=== PATIENT | female | born 1955 | race Caucasian/White ===

== ENCOUNTER 2017-11-25 10:39 | Outpatient (RCR) | payer BC, SELFPAY ==
[2017-01-04 15:17] VITALS: BMI 30.1
== END 2017-11-25 10:40 ==
LOC: DC 10:39
PROVIDERS: Family Provider Family Medicine; PCP Family Medicine; Visit Provider Family Medicine
DX: E11.9 Type 2 diabetes mellitus without complications (principal); Z71.3 Dietary counseling and surveillance
CPT/HCPCS: 97802

== ENCOUNTER 2018-06-06 14:36 | Emergency (ER) | payer BC, SELFPAY ==
[2017-01-04 15:17] VITALS: BMI 30.1
[2018-06-06 14:37] VITALS: BP 140/77; PULSE 76; RESP 14; TEMP 36.4; O2SAT 97; BMI 29.4
--- NOTE | 2018-06-06 15:37 | ED.DCSUM_ITS ---
- ER Visit Summary Date of Service: 06/06/18 Chief Complaint: Headache and lump in neck History of Present Illness: The patient is a 62 F presenting for evaluation secondary to headache and lump in her neck. Patient reports that this morning she woke up and she noted that she had pain to very light sensation over her right occiput. She also noted that she had a lump in her right neck. She denies any visual changes numbness weakness. She denies any prior similar symptoms in the past. She denies any skin rashes. Patient was concerned because she had a history of TIA and coronary artery disease. Patient does endorse that she has had some contacts recently that of had shingles. Review of systems otherwise negative. Physical Examination: Physical exam unremarkable except for HEENT exam. There is tenderness to very light palpation over the right occiput without evidence of underlying vesicular rash. There is a palpable minimally tender mobile and well-circumscribed posterior cervical lymph node noted. No evidence of overlying skin changes in that area. Remainder physical otherwise unremarkable. Test Results: None indicated Emergency Department Course and Treatment: Patient presented for evaluation secondary to a painful lymph node and pain over the right side of her occipital scalp. While the patient does not clearly have a rash at this time, given the fact that there is a lymph node involved in the fact that the patient has pain with extremely light touch of suspicious for the possibility of the start of a shingles outbreak. Patient will be started on a course of Valtrex she is instructed to follow-up with her primary care doctor Disposition: Discharge Impression: 1. Occipital neuralgia This note was generated with [employer] dictation software. It may contain incorrect words, spelling, and punctuation that were not noted in review of the chart prior to signing ED Disposition - Plan for ED Patient: Disposition: Home or Assisted Living Chief Complaint: Other, Pain/Inj Diagnosis: Occipital neuralgia of right side Instructions: ED Shingles Prescriptions: Valacyclovir HCl [Valtrex] 1,000 mg PO TID #21 tab Referrals: Clifton Jennings MD [Primary Care Provider] - 1 Week
[2018-06-06 15:46] VITALS: BP 138/77; PULSE 81; RESP 18; O2SAT 97
== END 2018-06-06 15:47 | disposition home or self-care (01) ==
PROVIDERS: Emergency Provider Emergency Medicine; Family Provider Family Medicine; PCP Family Medicine
DX: M54.81 Occipital neuralgia (principal); I25.10 Atherosclerotic heart disease of native coronary artery without angina pectoris; I10 Essential (primary) hypertension; E11.9 Type 2 diabetes mellitus without complications; Z79.84 Long term (current) use of oral hypoglycemic drugs; Z79.82 Long term (current) use of aspirin; Z79.899 Other long term (current) drug therapy; Z86.73 Personal history of transient ischemic attack (TIA), and cerebral infarction without residual deficits
CPT/HCPCS: 99282

== ENCOUNTER → 2018-09-13 06:32 | Outpatient (CLI) | payer BC, SELFPAY ==
[2017-01-04 15:17] VITALS: BMI 30.1
--- NOTE | 2018-09-13 14:45 | STRESSREP_ITS ---
Stress Test Report Date: 09/13/2018 Procedure: Exercise tolerance test/imaging study Indications: Shortness of breath/dyspnea on exertion; CAD; status post PCI Consent: Per the patient Procedure: The patient exercised on a Teofilo protocol for 5 minutes completing Stage I and 2 minutes of Stage II achieving a peak heart rate of 144 bpm (90 % predicted maxi mal heart rate) with a peak blood pressure 148/72 mmHg and a peak MET capacity of 7 METs. The baseline ECG demonstrated normal sinus rhythm with nonspecific T wave abnormality. The peak exercise ECG demonstrated no obvious ECG changes, however, the recovery ECG demonstrated approximately 0.5-1.[address] segment depression in leads II, III, aVF, and V4 through V6 with gradual resolution towards baseline later in recovery. There were no cardiac dysrhythmias pretest, during exercise, or recovery. The functional capacity was considered average. There was chest discomfort and shortness of breath/dyspnea peak exercise with spontaneous resolution in recovery. The examination was discontinued secondary to chest discomfort and shortness of breath. Impression: 1. Technically adequate (percent predicted maximal heart rate greater than 85%) exercise tolerance test 2. Peak exercise ECG demonstrated no obvious ECG changes, however, the recovery ECG demonstrated approximately 0.1-1.[address] segment depression in leads II, III, aVF, and V4 through V6 with gradual resolution towards baseline later in recovery 3. There were no cardiac dysrhythmias pretest, during exercise, or recovery 4. Nuclear images pending Myocardial perfusion imaging study: Technique: The patient was injected with 10.2 mCi of technetium 99m Cardiolite and subsequently rest SPECT Cardiolite nuclear imaging was obtained in the horizontal long, vertical long, and short axis views. The patient exercised on a Teofilo protocol for 5 minutes completing StageI1 and 2 minutes of Stage II achieving a peak heart rate of 144 bpm (90 % predicted maximal heart rate) with a peak blood pressure 148/72 mmHg and a peak MET capacity of 7 METs. The patient was injected with 29.7 mCi of technetium 99m Cardiolite and subsequently stress SPECT Cardiolite nuclear imaging was obtained in the horizontal long, vertical long, and short axis views. A gated Cardiolite study at peak stress was obtained. Interpretation: Rest and stress SPECT Cardiolite nuclear imaging status post realignment, normalization, and attenuation correction, demonstrates the appearance of relative uniform tracer uptake and myocardial perfusion appearing within normal limits. There is end systolic thickening and brightening. The gated Cardiolite study demonstrates myocardial thickening and inward wall motion. The reported LVEF is 81 %. Impression: 1. Rest and stress SPECT Cardiolite nuclear imaging demonstrate relative uniform tracer uptake and myocardial perfusion appearing within normal limits. 2. The gated Cardiolite study reports an LVEF of 81 %. This note was generated with [employer] software. It may contain incorrect words, spelling, and punctuation that were not noted in checking the note before signing.
== END ==
PROVIDERS: Family Provider Family Medicine; PCP Family Medicine; Referring Provider Internal Medicine Cardiovascular Disease; Visit Provider Internal Medicine Cardiovascular Disease
DX: I25.10 Atherosclerotic heart disease of native coronary artery without angina pectoris (principal); I10 Essential (primary) hypertension; E78.2 Mixed hyperlipidemia; R06.00 Dyspnea, unspecified; R53.83 Other fatigue; Z95.9 Presence of cardiac and vascular implant and graft, unspecified
CPT/HCPCS: 78452; 93017; A9500; A4216

== ENCOUNTER → 2018-10-06 14:15 | Outpatient (CLI) | payer BC, SELFPAY ==
[2017-01-04 15:17] VITALS: BMI 30.1
[2018-10-06 13:12] VITALS: BMI 28.7
--- NOTE | 2018-10-06 14:25 | RAD_ITS ---
HISTORY: CHEST PAIN, PALPITATIONS, HAD STENTS TWO YEARS AGO EXAM: XR Chest 2 Views: COMPARISON: 01/01/2017 FINDINGS: Normal heart size. No vascular congestion, pleural effusion, or acute pulmonary infiltration. No pneumothorax. The bony thorax appears intact. RAD/Chest PA and Lateral IMPRESSION: No active cardiopulmonary disease. No significant interval change. at 2340 Reported and signed by: Matthew Krishnamurthy MD Electronically Signed: Matthew Krishnamurthy, at 23:38 EST Tel , Service support ,
[2018-10-06 16:02] LABS: Hematocrit 38.5 % (37-47); Hemoglobin 12.7 g/dl (12.0-15.0); Mean Corpuscular Hgb 31.4 pg (27.0-32.0); Mean Corpuscular Volume 95.1 fL (81-99); Mean Platelet Vol. 9.9 fl (6.2-12.0); Platelet Count 230 K/mm3 (150-450); RBC Distribution Width CV 14.1 % (11.6-14.6); RBC Distribution Width SD 46.9 fl (35.1-43.9); Red Blood Count 4.05 M/mm3 (4.2-5.4); White Blood Count 5.2 K/mm3 (4.4-11.0)
[2018-10-06 16:06] LABS: Scan Indicated on CBC? Y/N NO
[2018-10-06 16:23] LABS: Anion Gap 7 (5-15); BUN 16 mg/dL (7-18); BUN/Creat Ratio 17.2 RATIO (10-20); Calcium,Total 8.9 mg/dL (8.5-10.1); Chloride 103 mmol/L (98-107); Creatinine, Serum 0.93 mg/dL (0.55-1.02); EST Glomerular Filtration Rate 65 mL/min (>60); Est Glom Filt Rate - Afr Amer 79 mL/min (>60); Glucose 102 mg/dL (74-106); Potassium 3.8 mmol/L (3.5-5.1); Sodium Level 141 mmol/L (136-145)
[2018-10-06 16:27] LABS: International Normalized Ratio 0.9; Prothrombin Time (Protime)PT. 12.6 SECONDS (11.7-14.9)
--- OUTSIDE RECORDS SUMMARY | 2018-12-01 19:32 | XMS RPT_ITS ---
:1955 Author Organization OHIP Support Name Relationship Address Phone KISHA BARBA Unavailable [address] + [place] [address] [place] Unavailable [address] + [place] [address] KISHA BARBA Unavailable [address] + [place] [address] [place] Unavailable [address] [place] [address] ST. + [place] [address] KISHA BARBA Unavailable [address] + [place] [address] [place] Unavailable [address] [place] [address] ST. + [place] [address] KISHA BARBA Unavailable [address] + [place] [address] [place] Unavailable [address] + [place] [address] KISHA BARBA Unavailable [address] + [place] [address] [place] Unavailable [address] + [place] [address] KISHA BARBA Unavailable [address] + [place] [address] [place] Unavailable [address] + [place] [address] KISHA BARBA Unavailable [address] + [place] [address] [place] Unavailable [address] + [place] [address] KISHA BARBA Unavailable [address] + [place] [address] [place] Unavailable [address] [place] [address]. + [place] [address] KISHA BARBA Unavailable . + ., [place] . [place] Unavailable [address] [place] [address]. + [place] [address] KISHA BARBA Unavailable . + ., [place] . [place] Unavailable [address] [place] [address]. + [place] [address] KISHA BARBA Unavailable . + ., [place] . [place] Unavailable [address] [place] [address]. + [place] [address] Care Team Providers Name Role Phone CLIFTON HUNG Attending Unavailable CLIFTON HUNG Referring Unavailable GUADALUPE ABEBE (ELIZABETH) Attending Unavailable ABHILASH, CLIFTON A Referring Unavailable ABHILASHCLIFTON A Attending Unavailable ABHILASH, CLIFTON A Referring Unavailable GABY NICHOLSON (ELIZABETH) Attending Unavailable SEEMA ALICIA (PA) Attending Unavailable ABHILASH, CLIFTON A Referring Unavailable CORINE DARLING (FEL) Attending Unavailable ABHILASH, CLIFTON A Referring Unavailable AUGUSTINE WILEY Admitting Unavailable AUGUSTINE WILEY Attending Unavailable SEEMA ALICIA (PA) Referring Unavailable SEEMA ALICIA (PA) Attending Unavailable CLIFTON HUNG A Referring Unavailable ABHILASHCLIFTON ALLEN A Referring Unavailable ABHILASHCLIFTON A Attending Unavailable ABHILASHANTONIO ALLENREY A Referring Unavailable ABHILASH, CLIFTON A Referring Unavailable ABHILASH, CLIFTON A Referring Unavailable CHERISE SIFUENTES (PA) Attending Unavailable ABHILASH, CLIFTON A Referring Unavailable AbhilashClifton allen Attending Unavailable AbhilashClifotn allen Referring Unavailable AbhilashAntonio allenrey Primary Care Unavailable Clifton Hung Attending Unavailable Clifton Hung Referring Unavailable Abhilash, Clifton Primary Care Unavailable Abhilash, Clifton Primary Care Unavailable Noble Liao Attending Unavailable Ron Gomez Attending Unavailable Clifton Hung Referring Unavailable Ron Gomez Attending Unavailable Ron Gomez Referring Unavailable Clifton Hung Primary Care Unavailable Ron Gomez Attending Unavailable Ron Gomez Referring Unavailable Octaviano Humphries Attending Unavailable Clifton Hung Referring Unavailable Ron Gomez Attending Unavailable Moodispaceferino, Ron Referring Unavailable Abhilash, Clifton Primary Care Unavailable Moodismarilyn, Ron Attending Unavailable Abhilash, Clifton Primary Care Unavailable Snehaismarilyn, Ron Referring Unavailable Moodismarilyn, Ron Attending Unavailable Moodismarilyn, Ron Referring Unavailable Abhilash, Clifton Primary Care Unavailable Octaviano Humphries Attending Unavailable Abhilash, Clifton Referring Unavailable Abhilash, Clifton Primary Care Unavailable PROBLEMS PROBLEMS DATE TYPE CONDITION / CODE ATTENDING STATUS SOURCE 10/12/2018 Unknown E11.9 - Type 2 Ron Gomez Active [place] [facility] without complications Hospital / E11.9(ICD-10) Repository 10/12/2018 Unknown I25.10 - Ron Gomez Active [place] Atherosclerotic heart Community disease of [facility] coronary artery Repository without angina pectoris / I25.10(ICD-10) 10/06/2018 Unknown Z95.9 - Presence of Ron Gomez Active [facility] implant and graft, Hospital unspecified / Repository Z95.9(ICD-10) 10/06/2018 Unknown R07.9 - Chest pain, Ron Gomez Active [facility] unspecified / Community R07.9(ICD-10) Hospital Repository 10/06/2018 Unknown Z95.820 - Peripheral Octaviano Humphries Active [facility] vascular angioplasty Community status with implants Hospital and grafts / Repository Z95.820(ICD-10) 10/06/2018 Active Encounter for NA Active [place] screening mammogram [facility] Main for malignant [place] neoplasm of breast / Repository Z12.31(ICD-10) 09/13/2018 Unknown E78.2 - Mixed MoodisRon sanders Active [place] hyperlipidemia / Community E78.2(ICD-10) Hospital Repository 09/13/2018 Unknown I10 - Essential MoodispaRon de la vega Active [place] (primary) Community hypertension / Hospital I10(ICD-10) Repository 09/13/2018 Unknown R06.00 - Dyspnea, Ron Gomez Active [place] unspecified / Community R06.00(ICD-10) Hospital Repository 09/13/2018 Unknown R53.83 - Other Moodispaceferino, Ron Active [facility] fatigue / Community R53.83(ICD-10) Hospital Repository 09/08/2018 Active Myalgia, unspecified NA Active [place] site / M79.10(ICD-10) Clinic Main [place] Repository 09/01/2018 Active Atherosclerotic heart NA Active [place] disease of [place] [facility] Main coronary artery with [place] other forms of angina Repository pectoris / I25.118(ICD-10) 08/09/2018 Active Encounter for AISHA, Active [place] screening for AUGUSTINE T [facility] Main malignant neoplasm of [place] colon / Repository Z12.11(ICD-10) 08/09/2018 Active Gastro-esophageal AISHA, Active [place] reflux disease AUGUSTINE T [facility] Main without esophagitis / [place] K21.9(ICD-10) Repository 10/22/2016 Active Type 2 diabetes NA Active [place] mellitus without Clinic Main complications / [place] E11.9(ICD-10) Repository 01/16/2016 Active Essential (primary) NA Active [place] hypertension / Clinic Main I10(ICD-10) [place] Repository 01/16/2016 Active Mixed hyperlipidemia NA Active [place] / E78.2(ICD-10) Clinic Main [place] Repository 01/16/2016 Active Vitamin D deficiency, NA [facility] unspecified / Clinic Main E55.9(ICD-10) [place] Repository PROCEDURES PROCEDURES No Procedure Records FoundRESULTS RESULTS BASIC METABOLIC Collected: 10/14/2018 Status: F Source: [place] PROFILE (BMP) 9:53 AM [facility] REPOSITORY TYPE CODE TESTS RESULT OUT OF RANGE REFERENCE UNITS LAB L501.0100 74-106 mg/dL High GLU 149 Result Comment: Fasting Glucose result greater than or equal to 126 mg/dL suggests DIABETES MELLITUS per A.D.A. criteria. Please note revised GLUCOSE reference range effective 2017. LAB L501.1000 7-18 mg/dL Normal BUN 12 LAB L501.1100 0.55-1.02 mg/dL Normal CREAT,SERUM 0.79 Result Comment: The validity of the calculated GFR AND GFRAA in patients over 70 years has not been determined. Clinical correlation is essential. LAB L501.1110 >60 mL/min Normal EST GFR 78 Result Comment: Non- GFR Calc LAB L501.1115 >60 mL/min Normal EST GFR - AA 95 Result Comment: GFR Calc LAB L501.1300 10-20 RATIO Normal BUN/CRE 15.2 LAB L501.2200 8.5-10.1 mg/dL CA Normal 8.7 LAB L501.5300 136-145 mmol/L NA Normal 142 LAB L501.5600 3.5-5.1 mmol/L K Normal 3.7 LAB L501.5900 98-107 mmol/L CL Normal 102 LAB L501.6100 21.0-32.0 mmol/L High CO2 33.0 LAB L501.6200 5-15 Normal GAP 7 Performed By: #### L500.2500 #### [facility] [address] [place], [address] CARDIOLOGY VISIT Observed: 10/06/2018 Status: F Source: [place] REPORT 3:31 PM [facility] REPOSITORY [facility] [address] [place] [address] OFFICE VISIT Date of Service: 10/06/18 MR#: [id number] Acct: [id number] Name: DOM BARBA Rep #: [id number] : 1955 Provider: NIRAJ Humphries Age/Sex: 63/F Location: [facility] Status: Signed HPI HPI Details: DOM BARBA, is a 63 F who presents to the office today for a cardiovascular outpatient follow-up. She has a history of coronary artery disease status post PCI to mid and proximal LAD and balloon angioplasty to ostium of diagonal 2 in December 2016, hypertension, hyperlipidemia, palpitations, SEBAS, and dizziness. After last office visit patient complained of worsening shortness of breath and fatigue. She underwent a nuclear stress test. This test showed mixed results. Patient had chest pain and recovery ST depression on ECG. Her nuclear images were negative. Because of this, she will undergo a heart catheterization for further evaluation. She continues to get SOB with exertion that improves with rest. She does this notice this rest at times. She continues to have decreased energy, but has not worsened. She states minimal right sided chest pain that is worse with exertion. She denies any secondary symptoms at the same time as the chest pain. Pt denies arm, jaw, or neck discomfort. She states intermittent palpitations. She states lightheadedness and dizziness with quick position changes. Pt denies symptoms of near syncopal or syncopal episodes. She states occasional bilateral ankle edema. She states orthopnea at times. Pt denies claudication issues. Pt. denies orthopnea, PND, fever, chills, blood in urine, blood in stool, myalgia, or unexplainable fatigue. 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 [Ecotrin] 81 mg PO DAILY@0800 #30 tab 01/05/17 [Rx Confirmed 08/22/18] metoprolol tartrate 25 mg tablet 25 mg PO BID #180 tab 12/17/17 [Rx Confirmed 08/22/18] lisinopril 5 mg tablet 5 mg PO DAILY #30 tab 02/17/18 [Rx Confirmed 08/22/18] clopidogrel 75 mg tablet 75 mg PO DAILY #90 tab 05/30/18 [Rx Confirmed 08/22/18] cholecalciferol (vitamin D3) 2,000 unit capsule 4,000 unit PO DAILY cap 08/22/18 [History Confirmed 08/22/18] ketoconazole 2 % shampoo 1 applic TOPICAL ONCE PRN ml 08/22/18 [History Confirmed 08/22/18] metformin ER 500 mg 24 hr tablet,extended release 500 mg PO .COMPLEX tab 08/22/18 [History Confirmed 08/22/18] montelukast 10 mg tablet 10 mg PO QPM 08/22/18 [History Confirmed 08/22/18] nitroglycerin 0.4 mg sublingual tablet 0.4 mg SUBLINGUAL Q5M PRN #25 tab 08/22/18 [Rx Confirmed 08/22/18] Handicap Mayte #1 ea 10/06/18 [Rx Confirmed 10/06/18] hydrochlorothiazide 25 mg tablet 25 mg PO DAILY 10/06/18 [History Confirmed 10/06/18] rosuvastatin 10 mg tablet 10 mg PO .every other day tab 10/06/18 [History Confirmed 10/06/18] Ejection fraction %: 65 to 70 PFSH Medical History Atherosclerotic heart disease of [place] coronary artery without angina pectoris (Chronic) TIA (transient ischemic attack) (Chronic) DM2 (diabetes mellitus, type 2) (Chronic) HTN (hypertension) (Chronic) HLD (hyperlipidemia) (Chronic) [place]ieres disease (Acute) Surgical History S/P angioplasty with stent (Chronic 01/05/17) History of carpal tunnel release of both wrists (Resolved) History of section (Resolved) History of cholecystectomy (Resolved) History of hysterectomy (Resolved) History of parathyroidectomy (Resolved) Hx of foot surgery (Resolved) Status post excision of lipoma (Resolved) Status post lumbar spine operative procedure for decompression of spinal cord (Resolved) Status post trigger finger release (Resolved) Family History Mother Cancer pancreatic cancer Father , [place] age 20's (premature CAD), 3 vessel CABG, hyperlipidemia, CHf Myocardial infarction CAD (coronary artery disease) Brother Cancer lung cancer Social History Smoking Status: Former smoker how long ago did patient quit smokin second hand exposure: Yes alcohol intake: never substance use type: does not use caffeine: Yes Type: coffee Number of servings: 2 what type of physical activity do you participate in: none seatbelt use: always do you feel safe at home: Yes ROS Const Const: Positive for fatigue; negative for body ache, fever(s), chills or weakness ENT ENT: Positive for dizziness Cardio Chest Pain: No Palpitations: Yes Edema: Bilateral (occassionaly) Muscle aches with walking: None Resp Respiratory: Positive for SOB with activity; negative for SOB at rest, SOB orthopnea\SOB lying down or paroxysmal nocturnal dyspnea GI GI: Negative nausea, black,tarry stools, bright, red blood in stools or vomiting blood/hematemesis : Negative for hematuria or frequent nighttime urination/ nocturia Musc Musc: Negative for muscle aches/ myalgia Skin Skin: Negative non-healing lesions or rash Neuro Neuro: Positive for dizziness and lightheadedness; negative for weakness, near syncope, syncope or orthostatic symptoms Endo Endo: Positive for fatigue Allergy Allergy/Immunology: Negative for rash Cardiology Exam Const Appearance: cooperative, healthy appearing, comfortable, no acute distress, well developed and well groomed Nutritional Appearance: average body habitus Orientation: alert, awake and oriented x3 Head Head: normal to inspection, normocephalic and atraumatic Ears: hearing grossly normal bilaterally Nose: external nose normal Face and Sinus: face symmetric Mouth: oral mucosae normal and tongue normal Eyes Eyelids: eyelids normal Conjunctivae: conjunctivae normal Pupils: PERRL EOM: EOM intact bilaterally Neck Neck: no JVD, normal visual inspection and full ROM Carotids: normal carotid upstroke Chest Chest inspection: normal inspection of the chest, normal respiratory effort and symmetric chest movement Auscultation: Bilateral: Clear to Auscultation Cardio Rate: regular rate Rhythm: regular rhythm Heart sounds: S1 normal and S2 normal GI GI: normal to inspection, bowel sounds present and soft Neuro General: alert, awake, oriented x3 and moves all extremities Skin Skin: no rashes or lesions noted Extremities Pulses: Normal: Right Posterior Tibial Pulse, Left Posterior Tibial Pulse, Right Radial Pulse, Left Radial Pulse Lower Extremity Edema: None: Bilateral Psych Psychological: normal affect Supplemental Info Transthoracic echo cardia room: 06/30/2017 Interpretation Summary The estimated ejection fraction is 65%. Normal diastology for age. Bubble contrast study negative for right to left interatrial shunt. Trivial tricuspid valve insufficiency, Right ventricular systolic pressure estimated to be 30 mmHg. Compared to echo report dated 04/20/2017 no appreciable changes noted. Stress test: 09/13/2018 Procedure: Exercise tolerance test/imaging study Indications: Shortness of breath/dyspnea on exertion; CAD; status post PCI Consent: Per the patient Procedure: The patient exercised on a Teofilo protocol for 5 minutes completing Stage I and 2 minutes of Stage II achieving a peak heart rate of 144 bpm (90 % predicted maximal heart rate) with a peak blood pressure 148/72 mmHg and a peak MET capacity of 7 METs. The baseline ECG demonstrated normal sinus rhythm with nonspecific T wave abnormality. The peak exercise ECG demonstrated no obvious ECG changes, however, the recovery ECG demonstrated approximately 0.5-1.[address] segment depression in leads II, III, aVF, and V4 through V6 with gradual resolution towards baseline later in recovery. There were no cardiac dysrhythmias pretest, during exercise, or recovery. The functional capacity was considered average. There was chest discomfort and shortness of breath/dyspnea peak exercise with spontaneous resolution in recovery. The examination was discontinued secondary to chest discomfort and shortness of breath. Impression: 1. Technically adequate (percent predicted maximal heart rate greater than 85%) exercise tolerance test 2. Peak exercise ECG demonstrated no obvious ECG changes, however, the recovery ECG demonstrated approximately 0.1-1.[address] segment depression in leads II, III, aVF, and V4 through V6 with gradual resolution towards baseline later in recovery 3. There were no cardiac dysrhythmias pretest, during exercise, or recovery 4. Nuclear images pending Myocardial perfusion imaging study: Technique: The patient was injected with 10.2 mCi of technetium 99m Cardiolite and subsequently rest SPECT Cardiolite nuclear imaging was obtained in the horizontal long, vertical long, and short axis views. The patient exercised on a Teofilo protocol for 5 minutes completing StageI1 and 2 minutes of Stage II achieving a peak heart rate of 144 bpm (90 % predicted maximal heart rate) with a peak blood pressure 148/72 mmHg and a peak MET capacity of 7 METs. The patient was injected with 29.7 mCi of technetium 99m Cardiolite and subsequently stress SPECT Cardiolite nuclear imaging was obtained in the horizontal long, vertical long, and short axis views. A gated Cardiolite study at peak stress was obtained. Interpretation: Rest and stress SPECT Cardiolite nuclear imaging status post realignment, normalization, and attenuation correction, demonstrates the appearance of relative uniform tracer uptake and myocardial perfusion appearing within normal limits. There is end systolic thickening and brightening. The gated Cardiolite study demonstrates myocardial thickening and inward wall motion. The reported LVEF is 81 %. Impression: 1. Rest and stress SPECT Cardiolite nuclear imaging demonstrate relative uniform tracer uptake and myocardial perfusion appearing within normal limits. 2. The gated Cardiolite study reports an LVEF of 81 %. Cardiac catheterization: 01/04/2017: [facility] Final impression: 1. Relatively normal resting left ventricular end-diastolic pressure 2. Left ventricle: A. Normal left ventricular size, wall motion, and systolic function B. Estimated LVEF of 60% 3. Left main coronary artery: A. Large, long vessel B. Angiographically normal 4. Left anterior descending coronary artery: A. 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 Status post diagonal branch there is 85% appearing stenosis subsequently followed by 95% appearing stenosis C. Distal LAD fills late and slowly as well as receiving right to left collateral flow 5. Left circumflex coronary artery: A. Angiographically normal 6. Right coronary artery: A. Large, dominant vessel B. Angiographically normal C. Right to left collateral flow to the distal LAD lesion Cardiac catheterization/PCI: 01/06/2017 Proximal to mid LAD with a 3.0 x 24 Promus stent and 2.25 x 24 Promus stent PTCA/no stent of the ostium of diagonal branch number 2 Assessment AND Plan 1. Atherosclerosis of [place] coronary artery of [place] heart without angina pectoris I25.10 Plan She has a history of PCI to mid and proximal LAD and balloon angioplasty ostium of diagonal 2 in December 2016. Her most recent stress test showed ST depression of 0.5-1 mm in leads II, III, aVF, and V4 through V6 with gradual resolution towards baseline later in recovery. She also was noted to have chest pain and shortness of breath at peak exercise. Her nuclear images were negative for stress-induced myocardial ischemia. She will undergo a left heart catheterization for further evaluation of symptoms. Further recommendation will be made based on results of this test. Orders Orders: 2. S/P angioplasty with stent Z95.820 01/05/17 [facility], PCI and GUERITA to mid and proximal LAD. Plan This will be further assessed with her left heart catheterization. Orders Orders: 3. Essential hypertension I10 Plan Patient's blood pressure is well-controlled today in the office. We will continue to monitor this. We will not make any medication regimen changes. 4. Mixed hyperlipidemia E78.2 Plan She has been intolerant to statin medications in the past. She appears to be tolerating Crestor 10 mg p.o. every other day. At this time she will continue this medication and repeat blood work as advised by primary care physician. 5. Palpitations R00.2 Plan She does acknowledge short lasting intermittent palpitations. The exact etiology of this is unclear. Consideration will be made to utilize a 30-day event monitor/Holter monitor or laboratory work such as thyroid function at next office visit. In the meantime she will continue with current beta-felix. Plan Detail Other Medications New: Additional Comments Thank you for allowing us to participate in the patients plan of care, if you have any questions please do not hesitate to call. This note was generated using a voice recognition system and there may be incorrect words, spelling or punctuation that were not noted when reviewing the office note prior to saving. Coding Level of Care Code Off vis,est,level 3 Diagnoses Atherosclerosis of [place] coronary artery of [place] heart without angina pectoris I25.10 [place] vs. transplanted heart: [place] heart S/P angioplasty with stent Z95.820 Essential hypertension I10 Hypertension type: essential hypertension Mixed hyperlipidemia E78.2 Hyperlipidemia type: mixed hyperlipidemia Palpitations R00.2 Coding Level of Care Code Off vis,est,level 3 Diagnoses Atherosclerosis of [place] coronary artery of [place] heart without angina pectoris I25.10 [place] vs. transplanted heart: [place] heart S/P angioplasty with stent Z95.820 Essential hypertension I10 Hypertension type: essential hypertension Mixed hyperlipidemia E78.2 Hyperlipidemia type: mixed hyperlipidemia Palpitations R00.2 10/06/18 1531 <Electronically signed by Octaviano TOM> Date Octaviano TOM Cosigner Signature: Date (if applicable) CC: Clifton Hung MD CBC-COMPLETE BLOOD CNT Collected: 10/06/2018 Status: F Source: NITA NO DIFF 2:34 PM [facility] REPOSITORY TYPE CODE TESTS RESULT OUT OF RANGE REFERENCE UNITS LAB L100.1000 4.4-11.0 K/mm3 Normal WBC 5.2 LAB L100.1200 4.2-5.4 M/mm3 Low RBC 4.05 LAB L100.1300 12.0-15.0 g/dl Normal HGB 12.7 LAB L100.1400 37-47 % Normal HCT 38.5 LAB L100.1500 81-99 fL Normal MCV 95.1 LAB L100.1600 27.0-32.0 pg Normal MCH 31.4 LAB L100.1700 32-36 g/gl Normal MCHC 33.0 LAB L100.1810 11.6-14.6 % Normal RDW CV 14.1 LAB L100.1820 35.1-43.9 fl High RDW SD 46.9 LAB L100.1900 150-450 K/mm3 Normal PLT 230 LAB L100.2000 6.2-12.0 fl Normal MPV 9.9 Performed By: #### L100.0500 #### [facility] [address] [place], [place], [address] BASIC METABOLIC Collected: 10/06/2018 Status: F Source: NITA PROFILE (BMP) 2:34 PM [facility] REPOSITORY TYPE CODE TESTS RESULT OUT OF RANGE REFERENCE UNITS LAB L501.0100 74-106 mg/dL Normal GLU 102 Result Comment: Fasting Glucose result from 100 to 125 mg/dL suggests IMPAIRED HOMEOSTASIS per A.D.A. criteria. Please note revised GLUCOSE reference range effective 2017. LAB L501.1000 7-18 mg/dL Normal BUN 16 LAB L501.1100 0.55-1.02 mg/dL Normal CREAT,SERUM 0.93 Result Comment: The validity of the calculated GFR AND GFRAA in patients over 70 years has not been determined. Clinical correlation is essential. LAB L501.1110 >60 mL/min Normal EST GFR 65 Result Comment: Non- GFR Calc LAB L501.1115 >60 mL/min Normal EST GFR - AA 79 Result Comment: GFR Calc LAB L501.1300 10-20 RATIO Normal BUN/CRE 17.2 LAB L501.2200 8.5-10.1 mg/dL CA Normal 8.9 LAB L501.5300 136-145 mmol/L NA Normal 141 LAB L501.5600 3.5-5.1 mmol/L K Normal 3.8 LAB L501.5900 98-107 mmol/L CL Normal 103 LAB L501.6100 21.0-32.0 mmol/L Normal CO2 31.0 LAB L501.6200 5-15 Normal GAP 7 Performed By: #### L500.2500 #### [facility] [address] [place], [address] PROTHROMBIN TIME W/INR Collected: 10/06/2018 Status: F Source: NITA 2:34 PM [facility] REPOSITORY TYPE CODE TESTS RESULT OUT OF RANGE REFERENCE UNITS LAB L300.4150 11.7-14.9 SECONDS Normal PROTIME 12.6 LAB L300.4200 Normal INR 0.9 Performed By: #### L300.3900, L300.4310 #### [facility] [address] [place], [address] PARTIAL THROMBOPLAST Collected: 10/06/2018 Status: F Source: [place] TIME 2:34 PM [facility] REPOSITORY TYPE CODE TESTS RESULT OUT OF RANGE REFERENCE UNITS LAB L300.4310 24.1-36.2 Seconds Normal PTT 30.0 Performed By: #### L300.3900, L300.4310 #### [facility] [address] [place], [address] CHEST PA AND LATERAL Observed: 10/06/2018 Status: F Source: [place] 2:20 PM [facility] REPOSITORY [facility] Imaging Services [address] [place] [address] Chest PA and Lateral MR#: [id number] Acct: [id number] Name: DOM BARBA Rep #: [id number] : 1955 F 63 From: Matthew Krishnamurthy MD PCP: Clifton Hung MD Status: REG CLI Study: Chest PA and Lateral Date of Exam: 10/06/18 Exam# [id number] Ordering Dr: Ron Gomez MD HISTORY: CHEST PAIN, PALPITATIONS, HAD STENTS TWO YEARS AGO EXAM: XR Chest 2 Views: COMPARISON: 01/01/2017 FINDINGS: Normal heart size. No vascular congestion, pleural effusion, or acute pulmonary infiltration. No pneumothorax. The bony thorax appears intact. RAD/Chest PA and Lateral IMPRESSION: No active cardiopulmonary disease. No significant interval change. at 2340 Reported and signed by: Matthew Krishnamurthy MD Electronically Signed: Matthew Krishnamurthy, at 23:38 EST Tel , Service support , CC: Clifton Hung MD; Ron Gomez MD Supervisor Case Loading: Signed 12 LEAD EKG PERFORMED Observed: 10/06/2018 Status: F Source: [place] [facility] 1:15 PM [facility] REPOSITORY [facility] [address] [place] [address] 12 Lead EKG performed by [facility] 10/06/181314 MR#: [id number] Acct: [id number] Name: DOM BARBA Rep #: [id number] : 1955 63 From: Octaviano Humphries ORTHOPAEDIC TECHNOLOGIST-C Attending Dr: Octaviano Humphries ORTHOPAEDIC TECHNOLOGIST Status: DEP AMB Ordering Dr: Octaviano Humphries ORTHOPAEDIC TECHNOLOGIST-C Date: 10/06/18 Location: [facility] Sex: F C Admitted: BMS/12 Lead EKG performed by [facility] ECG Report Interpretation Sinus Rhythm Leftward axisNonspecific T-abnormality. ABNORMAL Electronically signed on 10/06/2018 at 15:01 by Ron Gomez Software Version [id number] 10/06/18 1504 Date Octaviano TRAYLORC CC: Clifton Hung MD Date Dictated: 10/06/181314 Date Transcribed: 10/06/181314 Supervisor Case Loading: KIA Signed CNCO Observed: 10/06/2018 Status: COMPLETED Source: [place] 12:55 PM [facility] REPOSITORY HNO ID: [id number] Author: Mammography Coordinator Service: (none) Author Type: Physician Type: Letter Filed: 10/10/2018 11:31 PM Note Text: October 06, 2018 PID: [id number] Dom Barba [address] [place] [id number] Dear Ms. Barba, We are pleased to inform you that the results of your recent breast imaging exam on 10/06/2018 are normal. Early detection of cancer is very important. We also understand recommendations regarding breast cancer screening are controversial. Please discuss with your primary care provider which strategy is best for you and whether a mammogram is right for you. Your imaging studies and report will be kept on file at [facility] as part of your permanent medical record and are available for your continuing care. Thank you for allowing us to help in meeting your health care needs. Sincerely, Dr. Hutchins Interpreting Radiologist [facility] (Normal over 40) PROGRESS Observed: 10/06/2018 Status: COMPLETED Source: [place] 8:45 AM [facility] REPOSITORY HNO ID: [id number] Author: Loren Sifuentes Service: (none) Author Type: Physician Landscape Foreman Type: Progress Notes Filed: 10/06/2018 9:13 AM Note Text: Chief Complaint Patient presents with: Follow Up: dizziness AND htn from 09/08/18 HPI Dom Barba is a 63 year old female who presents here today for Recheck.. Overall patient does feel a little better. Her blood pressures have been similar to today's reading. She stil is having some dizziness but has had improvement. Worse when she turns to the right. States that she saw ENT before and they were the ones that started the dyazide but with lower BPs it was switched to just the HCTZ. Last 4 Encounter BP Readings: Date: BP: 09/08/2018 106/60 08/02/2018 114/75 07/21/2018 126/76 07/21/2018 132/68 At last visit also started Crestor 5mg. No side effects from this. Will be seeing cardiology today to set up a cardiac cath. She had an abnormal stress test. Past medical history, appointments, medications, allergies reviewed. 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 Gomez - Garibay's cyst of knee, left 03/02/2018 - Colon polyp 2011 - Diabetes mellitus type 2, controlled, without complications (HCC) - Essential hypertension 01/16/2016 - Female pattern hair loss - History of depression when - History of hyperparathyroidism - Mixed hyperlipidemia 05/31/2009 statin intolerance - Obstructive sleep apnea on CPAP Sibilia - Psoriasis - Rosacea with ocular symptoms - S/P angioplasty with stent 01/09/2017 stents to mid and proximal left anterior descending Art, and angio of ostium of #2 diagonal - Scalp itch - Seasonal allergies Dr Pompa - TIA (transient ischemic attack) 06/2017 - Vitamin D deficiency 2012 Previous Surgical History PAST SURGICAL HISTORY Procedure Laterality Date - 2D ECHO (EXEP) 06/30/2017 EF=65%, trivial [place], TI and 1+ PI Unchanged from 04/2017 - BUNIONECTOMY, LAPIDUS-TYPE 2009 left great toe - DELIVERY ONLY - COLONOSCOP W/ OR W/O BRSH SPEC 08/09/2018 Colonoscopy - COLONOSCOPY 08/07/15 no polyps, recheck 3-5 yrs - COLONOSCOPY AND POLYPECTOMY 10/12, 10/13 Dr Barba; hyperplastic polyps - EGD W/O OR W/BRUSH/WASH 08/09/2018 EGD - HEART CATHETERIZATION 2004 heart cath-normal per patient - HEART CATHETERIZATION 01/04/2017 EF=60%, left anterior desending septal perferator 95-99% stenosis and diagonal branch 85% stenosis, - HEART SURGERY HX 12/2016 Cardiac stents x 2 - LOW BACK DISK SURGERY 2009 microdecompression L4 L5 - PAST SURGICAL HISTORY OF 2004 parathyroidectomy x1 - PAST SURGICAL HISTORY OF lipoma x2 - PAST SURGICAL HISTORY OF 10/13 left foot surgery (bone cyst in heel, removed) - PAST SURGICAL HISTORY OF 2014 bilateral carpel tunnel - PAST SURGICAL HISTORY OF Right 10/2016 trigger finger release x2 - REMOVAL GALLBLADDER 2004 Cholecystectomy - STENT PLACEMENT 01/06/2017 stents to mid and proximal left anterior descending Art, and angio of ostium of #2 diagonal - STRESS TEST 04/20/2017 WNL - TOTAL ABDOM HYSTERECTOMY 1995 LEDA for benign fibroid, ovaries intact Family History FAMILY HISTORY Problem Relation Age of Onset - other (Pancreatic cancer) Mother - Coronary Artery Disease Father 25 [place] @ 25. CABG - Diabetes Paternal Grandmother - Diabetes Maternal Grandfather - other (Lung cancer) Brother - other (suicide) Son may of been depression Patient Allergies ALLERGIES Allergen Reactions - Brilinta [Ticagrelo* Shortness of Breath - Keflex [Cephalexin] Other: See Comments facial flushing - Lipitor [Atorvastat* Other: See Comments myalgia - Lisinopril Cough - Lovastatin Other: See Comments myalgia - Beardsley [Hydrocodone-* Itching Current Medications Current Outpatient Prescriptions on File Prior to Visit: MAGNESIUM SULFATE ORAL Take 500 mg by mouth. dulaglutide (TRULICITY) 0.75 mg / 0.5 ml subcutaneous pen injector INJECT 0.75 MG SUBCUTANEOUSLY ONCE EACH WEEK hydroCHLOROthiazide (HYDRODIURIL, ESIDRIX) 25 mg tablet Take 1 tablet by mouth once daily. rosuvastatin (CRESTOR) 5 mg tablet Take 1 tablet by mouth once daily. montelukast (SINGULAIR) 10 mg tablet Take 10 mg by mouth daily at bedtime. doxycycline hyclate 50 mg tab Take by mouth. metFORMIN (GLUCOPHAGE) 500 mg tablet TAKE ONE TABLET BY MOUTH AFTER BREAKFAST AND TWO TABLETS AFTER DINNER ketoconazole (NIZORAL) 2 % shampoo Apply 1 application to affected area once daily as needed. metoprolol succinate ER (TOPROL XL) 25 mg 24 hr tablet Take 1 tablet by mouth twice daily. Per Dr. Gomez aspirin 81 mg chewable tablet Take 1 tablet by mouth once daily. clopidogrel (PLAVIX) 75 mg tablet Take 1 tablet by mouth once daily. lisinopril (ZESTRIL, PRINIVIL) 5 mg tablet Take 1 tablet by mouth once daily. nitroglycerin sublingual (NITROQUICK) 0.4 mg SL tablet Dissolve 1 tablet under the tongue every 5 minutes as needed for Chest Pain. cholecalciferol, vitamin D3, (VITAMIN D3) 4,000 unit cap Take 1 capsule by mouth once daily. MULTIVITAMIN ORAL Take by mouth. Sawyer-3 Fatty Acids-Vitamin E (FISH OIL) 1,000 mg cap Take 1 capsule by mouth once daily. LACTOBACILLUS ACIDOPHILUS (PROBIOTIC ORAL) Take 1 tablet by mouth once daily. CPAP No current facility-administered medications on file prior to visit. Social History Social History Marital status: Spouse name: Kisha Years of education: 14 Number of children: 3 Occupational History Occupation Employer [employer] Social History Main Topics Smoking status: Former Smoker Packs/day: 1.50 Years: 3.00 Types: Cigarettes Quit date: 11/08/1994 Smokeless tobacco: Never Used Comment: smoked 3 years in mid 90 Alcohol use: No Drug use: No Sexual activity: Yes Partners with: Male Social History Narrative 3 children. 06/2011. 1st child suicide at 17. Remarried. Review of Symptoms REVIEW OF SYSTEMS See hpi. EXAM: BP 120/78 (BP Site: Left Arm, BP Position: Sitting, BP Cuff Size: Regular Adult) Pulse 64 Temp (!) 35.8 ?C (96.5 ?F) (Tympanic) Resp 16 Wt 73.5 kg (162 lb) BMI 29.16 kg/m? General Appearance: Well appearing, alert, in no acute distress, well-hydrated, well nourished.. Neck: Supple, no adenopathy; thyroid symmetric, normal size, no bruits. Lungs: lungs clear to auscultation. No wheezing, rhonchi, rales. Heart: RRR without murmur, gallop, or rubs. No ectopy. Back: muscle spasm noted right side thoracic back. Full ROM. nvi Health Maintenance List STATIN MED ADHERENCE due on 10/08/2018 DIABETES MED ADHERENCE due on 10/08/2018 DILATED RETINAL EXAM due on 12/03/2018 URINE ALBUMIN:CREATININE RATIO due on 02/25/2019 HBA1C due on 03/02/2019 LDL CHOLESTEROL due on 09/01/2019 DIABETIC FOOT EXAM due on 09/08/2019 ANNUAL PCP TEAM CHRONIC DISEASE VISIT due on 09/08/2019 BP CONTROLLED (<130/80) due on 09/08/2019 MAMMOGRAM due on 10/06/2019 DTAP,TDAP,TD(2 - Td) due on 02/24/2024 COLORECTAL CANCER SCREENING,SEE MODIFIER due on 08/09/2028 ONE PNEUMOVAX PRIOR TO AGE 65 Completed INFLUENZA Completed HEPATITIS C SCREENING Completed Data reviewed ASSESSMENT/PLAN: 1. Essential hypertension - ICD9: 401.9, ICD10: I10 (primary diagnosis) - good control - Continue current medication(s) - Recommended regular aerobic exercise. - Recommend home blood pressure monitoring, to bring results in on next visit - Goal of BP <130/80 2. Meniere disease, right - ICD9: 386.00, ICD10: H81.01 Discussed setting patient back up with ENT but patient would like to wait until after cardiac testing is completed 3. Spasm of muscle, back - ICD9: 724.8, ICD10: M62.830 Baclofen prn. Discussed Physical Therapy, chiropractor, or massage therapy as well. Follow up if no improvement. Will set up patient for a 3-4 month routine follow up. Labs prior Return sooner as needed. KELLY STUART Observed: 10/06/2018 Status: COMPLETED Source: [place] 8:40 AM [facility] REPOSITORY Office Visit (FAMPWS) DOM BARBA ([id number]) 1955 F Date Time Provider Department 10/06/18 8:40 AM CHERISE SIFUENTES(KELLY) FAMPWS During your visit today, we recorded the following information about you: Temperature Pulse Respiration Blood pressure 96.5 degrees 64/minute 16/minute 120/78 Weight 73.5 kg CHERISE SIFUENTES PA-C 10/06/2018 9:13 AM Signed Chief Complaint Patient presents with: Follow Up: dizziness AND htn from 09/08/18 [facility] Dom Barba is a 63 year old female who presents here today for Recheck.. Overall patient does feel a little better. Her blood pressures have been similar to today's reading. She stil is having some dizziness but has had improvement. Worse when she turns to the right. States that she saw ENT before and they were the ones that started the dyazide but with lower BPs it was switched to just the HCTZ. Last 4 Encounter BP Readings: Date: BP: 09/08/2018 106/60 08/02/2018 114/75 07/21/2018 126/76 07/21/2018 132/68 At last visit also started Crestor 5mg. No side effects from this. Will be seeing cardiology today to set up a cardiac cath. She had an abnormal stress test. Past medical history, appointments, medications, allergies reviewed. 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 Gomez - Phoenix's cyst of knee, left 03/02/2018 - Colon polyp 2011 - Diabetes mellitus type 2, controlled, without complications (HCC) - Essential hypertension 01/16/2016 - Female pattern hair loss - History of depression when - History of hyperparathyroidism - Mixed hyperlipidemia 05/31/2009 statin intolerance - Obstructive sleep apnea on CPAP Sibilia - Psoriasis - Rosacea with ocular symptoms - S/P angioplasty with stent 01/09/2017 stents to mid and proximal left anterior descending Art, and angio of ostium of #2 diagonal - Scalp itch - Seasonal allergies Dr Pompa - TIA (transient ischemic attack) 06/2017 - Vitamin D deficiency 2012 Previous Surgical History PAST SURGICAL HISTORY Procedure Laterality Date - 2D ECHO (EXEP) 06/30/2017 EF=65%, trivial [place], TI and 1+ PI Unchanged from 04/2017 - BUNIONECTOMY, LAPIDUS-TYPE 2009 left great toe - DELIVERY ONLY - COLONOSCOP W/ OR W/O BRSH SPEC 08/09/2018 Colonoscopy - COLONOSCOPY 08/07/15 no polyps, recheck 3-5 yrs - COLONOSCOPY AND POLYPECTOMY 10/12, 10/13 Dr Barba; hyperplastic polyps - EGD W/O OR W/BRUSH/WASH 08/09/2018 EGD - HEART CATHETERIZATION 2004 heart cath-normal per patient - HEART CATHETERIZATION 01/04/2017 EF=60%, left anterior desending septal perferator 95-99% stenosis and diagonal branch 85% stenosis, - HEART SURGERY HX 12/2016 Cardiac stents x 2 - LOW BACK DISK SURGERY 2009 microdecompression L4 L5 - PAST SURGICAL HISTORY OF 2004 parathyroidectomy x1 - PAST SURGICAL HISTORY OF lipoma x2 - PAST SURGICAL HISTORY OF 10/13 left foot surgery (bone cyst in heel, removed) - PAST SURGICAL HISTORY OF 2014 bilateral carpel tunnel - PAST SURGICAL HISTORY OF Right 10/2016 trigger finger release x2 - REMOVAL GALLBLADDER 2004 Cholecystectomy - STENT PLACEMENT 01/06/2017 stents to mid and proximal left anterior descending Art, and angio of ostium of #2 diagonal - STRESS TEST 04/20/2017 WNL - TOTAL ABDOM HYSTERECTOMY 1995 LEDA for benign fibroid, ovaries intact Family History FAMILY HISTORY Problem Relation Age of Onset - other (Pancreatic cancer) Mother - Coronary Artery Disease Father 25 [place] @ 25. CABG - Diabetes Paternal Grandmother - Diabetes Maternal Grandfather - other (Lung cancer) Brother - other (suicide) Son may of been depression Patient Allergies ALLERGIES Allergen Reactions - Brilinta [Ticagrelo* Shortness of Breath - Keflex [Cephalexin] Other: See Comments facial flushing - Lipitor [Atorvastat* Other: See Comments myalgia - Lisinopril Cough - Lovastatin Other: See Comments myalgia - Beardsley [Hydrocodone-* Itching Current Medications Current Outpatient Prescriptions on File Prior to Visit: MAGNESIUM SULFATE ORAL Take 500 mg by mouth. dulaglutide (TRULICITY) 0.75 mg / 0.5 ml subcutaneous pen injector INJECT 0.75 MG SUBCUTANEOUSLY ONCE EACH WEEK hydroCHLOROthiazide (HYDRODIURIL, ESIDRIX) 25 mg tablet Take 1 tablet by mouth once daily. rosuvastatin (CRESTOR) 5 mg tablet Take 1 tablet by mouth once daily. montelukast (SINGULAIR) 10 mg tablet Take 10 mg by mouth daily at bedtime. doxycycline hyclate 50 mg tab Take by mouth. metFORMIN (GLUCOPHAGE) 500 mg tablet TAKE ONE TABLET BY MOUTH AFTER BREAKFAST AND TWO TABLETS AFTER DINNER ketoconazole (NIZORAL) 2 % shampoo Apply 1 application to affected area once daily as needed. metoprolol succinate ER (TOPROL XL) 25 mg 24 hr tablet Take 1 tablet by mouth twice daily. Per Dr. Gomez aspirin 81 mg chewable tablet Take 1 tablet by mouth once daily. clopidogrel (PLAVIX) 75 mg tablet Take 1 tablet by mouth once daily. lisinopril (ZESTRIL, PRINIVIL) 5 mg tablet Take 1 tablet by mouth once daily. nitroglycerin sublingual (NITROQUICK) 0.4 mg SL tablet Dissolve 1 tablet under the tongue every 5 minutes as needed for Chest Pain. cholecalciferol, vitamin D3, (VITAMIN D3) 4,000 unit cap Take 1 capsule by mouth once daily. MULTIVITAMIN ORAL Take by mouth. Sawyer-3 Fatty Acids-Vitamin E (FISH OIL) 1,000 mg cap Take 1 capsule by mouth once daily. LACTOBACILLUS ACIDOPHILUS (PROBIOTIC ORAL) Take 1 tablet by mouth once daily. CPAP No current facility-administered medications on file prior to visit. Social History Social History Marital status: Spouse name: Kisha Years of education: 14 Number of children: 3 Occupational History Occupation Employer Comment [employer] Social History Main Topics Smoking status: Former Smoker Packs/day: 1.50 Years: 3.00 Types: Cigarettes Quit date: 11/08/1994 Smokeless tobacco: Never Used Comment: smoked 3 years in mid 90s Alcohol use: No Drug use: No Sexual activity: Yes Partners with: Male Social History Narrative 3 children. 06/2011. 1st child suicide at 17. Remarried. Review of Symptoms REVIEW OF SYSTEMS See hpi. EXAM: BP 120/78 (BP Site: Left Arm, BP Position: Sitting, BP Cuff Size: Regular Adult) Pulse 64 Temp (!) 35.8 ?C (96.5 ?F) (Tympanic) Resp 16 Wt 73.5 kg (162 lb) BMI 29.16 kg/m? General Appearance: Well appearing, alert, in no acute distress, well-hydrated, well nourished.. Neck: Supple, no adenopathy; thyroid symmetric, normal size, no bruits. Lungs: lungs clear to auscultation. No wheezing, rhonchi, rales. Heart: RRR without murmur, gallop, or rubs. No ectopy. Back: muscle spasm noted right side thoracic back. Full ROM. nvi Health Maintenance List STATIN MED ADHERENCE due on 10/08/2018 DIABETES MED ADHERENCE due on 10/08/2018 DILATED RETINAL EXAM due on 12/03/2018 URINE ALBUMIN:CREATININE RATIO due on 02/25/2019 HBA1C due on 03/02/2019 LDL CHOLESTEROL due on 09/01/2019 DIABETIC FOOT EXAM due on 09/08/2019 ANNUAL PCP TEAM CHRONIC DISEASE VISIT due on 09/08/2019 BP CONTROLLED (<130/80) due on 09/08/2019 MAMMOGRAM due on 10/06/2019 DTAP,TDAP,TD(2 - Td) due on 02/24/2024 COLORECTAL CANCER SCREENING,SEE MODIFIER due on 08/09/2028 ONE PNEUMOVAX PRIOR TO AGE 67 Completed INFLUENZA Completed HEPATITIS C SCREENING Completed Data reviewed ASSESSMENT/PLAN: 1. Essential hypertension - ICD9: 401.9, ICD10: I10 (primary diagnosis) - good control - Continue current medication(s) - Recommended regular aerobic exercise. - Recommend home blood pressure monitoring, to bring results in on next visit - Goal of BP <130/80 2. Meniere disease, right - ICD9: 386.00, ICD10: H81.01 Discussed setting patient back up with ENT but patient would like to wait until after cardiac testing is completed 3. Spasm of muscle, back - ICD9: 724.8, ICD10: M62.830 Baclofen prn. Discussed Physical Therapy, chiropractor, or massage therapy as well. Follow up if no improvement. Will set up patient for a 3-4 month routine follow up. Labs prior Return sooner as needed. CHERISE SIFUENTES PA-C Referring Provider: CLIFTON HUNG [[id number]] Allergies As of Date: 10/06/2018 Noted Allergy Reaction BRILINTA (TICAGRELOR) 06/28/2017 12 - Shortness of Breath KEFLEX (CEPHALEXIN) 02/02/2006 14 - Other: See Comments Comments: facial flushing LIPITOR (ATORVASTATIN) 07/21/2013 14 - Other: See Comments Comments: myalgia LISINOPRIL 07/21/2013 3 - Cough LOVASTATIN 07/21/2013 14 - Other: See Comments Comments: myalgia NORCO (HYDROCODONE-ACETAMINOPHEN) 10/29/2016 9 - Itching Date Reviewed: 10/06/2018 Reviewed by: Uyen Rosario LPN - Fully Assessed Reason for Visit: Follow Up [171] Cmt: dizziness AND htn from 09/08/18 Primary Visit Diagnosis:Essential hypertension [I10] Other Visit Diagnoses:Meniere disease, right [H81.01] Spasm of muscle, back [M62.830] Order(s):baclofen (LIORESAL) 10 mg tabletTake 1 tablet by mouth three times daily as needed (muscle spasms).Disp: 30 tabletRfl: 0 Prescriptions as of 10/06/2018 Sig: MAGNESIUM SULFATE ORAL Take 500 mg by mouth. DULAGLUTIDE 0.75 MG/0.5 ML HERNANDEZ* INJECT 0.75 MG SUBCUTANEOUSLY* HYDROCHLOROTHIAZIDE 25 MG TAB* Take 1 tablet by mouth once d* ROSUVASTATIN 5 MG TABLET Take 1 tablet by mouth once d* MONTELUKAST 10 MG TABLET Take 10 mg by mouth daily at * DOXYCYCLINE HYCLATE 50 MG TAB* Take by mouth. METFORMIN 500 MG TABLET TAKE ONE TABLET BY MOUTH AFTE* KETOCONAZOLE 2 % SHAMPOO Apply 1 application to affect* METOPROLOL SUCCINATE ER 25 MG* Take 1 tablet by mouth twice * ASPIRIN 81 MG CHEWABLE TABLET Take 1 tablet by mouth once d* CLOPIDOGREL 75 MG TABLET Take 1 tablet by mouth once d* LISINOPRIL 5 MG TABLET Take 1 tablet by mouth once d* NITROGLYCERIN 0.4 MG SUBLINGU* Dissolve 1 tablet under the t* CHOLECALCIFEROL (VITAMIN D3) * Take 1 capsule by mouth once * MULTIVITAMIN ORAL Take by mouth. OMEGA-3 FATTY ACIDS-VITAMIN E* Take 1 capsule by mouth once * PROBIOTIC ORAL Take 1 tablet by mouth once d* * CPAP BACLOFEN 10 MG TABLET Take 1 tablet by mouth three * Problem List As Of Date 10/06/2018 Noted Resolved Mixed hyperlipidemia [E78.2] INVALID FOR* More... Obstructive sleep apnea on CPAP [G47.33, Z99.89] More... Scalp itch [L29.9] Seasonal allergies [J30.2] More... History of depression [Z86.59] More... More... Arthritis [M19.90] More... Rosacea [L71.9] More... History of hyperparathyroidism [Z86.39] More... Female pattern hair loss [L65.8] Colon polyp [K63.5] Vitamin D deficiency [E55.9] Essential hypertension [I10] INVALID FOR* Encounter for gynecological examination without*INVALID FOR* More... 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 Diabetic eye exam (HCC) [Z01.00, E11.9] INVALID FOR* More... Well adult exam [Z00.00] INVALID FOR* More... Colon cancer screening [Z12.11] INVALID FOR* Controlled type 2 diabetes mellitus without com*INVALID FOR* Atherosclerosis of [place] coronary artery with *INVALID FOR* More... S/P angioplasty with stent [Z95.9] INVALID FOR* More... Meniere disease, right [H81.01] INVALID FOR* History of transient ischemic attack (TIA) [Z86*INVALID FOR* More... Garibay's cyst of knee, left [M71.22] INVALID FOR* Prescriptions ordered this encounter Disp Refills Start End BACLOFEN 10 MG TABLET 30 t* 0 10/06/2018 Route: ORAL Sig: Take 1 tablet by mouth three times daily as needed (muscle spasms). Disposition: Return for Routine with Cherise. Follow-up and Disposition History Recorded Encounter Status:Closed by CHERISE HYATT on 10/06/18 GUILLERMINA SCREENING Observed: 10/06/2018 Status: F Source: [place] 8:29 AM [facility] REPOSITORY * * *Final Report* * * DATE OF EXAM: Oct 06 2018 8:29AM [id number] - [facility] SCREENING / PROCEDURE REASON: Screening for breast cancer * * * * Physician Interpretation * * * * RESULT: #[id number] - GUILLERMINA SCREENING BILATERAL DIGITAL SCREENING MAMMOGRAM WITH CAD: 10/06/2018 HISTORY: Screening For Breast Cancer\ Screening Mammogram - patient reports NO breast symptoms /priors available for comparison. RESULT: TECHNIQUE: The study was acquired using full field digital technology and interpreted from soft copy. Current study was also evaluated with a Computer Aided Detection (CAD). Comparison is made to exams dated: 11/25/2016 mammogram - [facility], 10/25/2015 mammogram - [facility], and 10/26/2014 mammogram - [facility]. There are scattered fibroglandular elements in both breasts. No significant masses, calcifications, or other findings are seen in either breast. There has been no significant interval change. IMPRESSION: There is no mammographic evidence of malignancy. A 1 year screening mammogram is recommended. Regan pascal/chino:10/06/2018 12:55:47 Clamshell Operator(s): RT Hanna(Sunil)(Shameka), [facility] letter sent: Normal over 40 Mammogram BI-RADS: 1 Negative Multiple national specialty organizations have released breast cancer screening guidelines for women at average risk for developing breast cancer - guidelines that are based on both evidence and opinion, yet differ on when to start and how often to screen for breast cancer. With representation from Breast Imaging, Internal Medicine, Women's Health, Family Medicine, and Medical/Surgical Oncology, the [facility] has carefully reviewed the data and reached the following consensus: 1) All women should engage in shared decision-making with their providers to decide when to start and how often to screen; 2) All women should have the opportunity to start screening mammography at age 40; 3) For women ages 45-55, we recommend annual screening mammograms; 4) For women ages 55 and over, we support both the transition from an annual to a biennial interval if this aligns more with patient's values and preferences, or continuation with annual screening; 5) All women should discuss with their providers when to stop screening mammograms. Supervisor Case Loading: [place] Transcribe Date/Time: Oct 06 2018 8:31A Dictated by: REGAN HUTCHINS MD This examination was interpreted and the report reviewed and electronically signed by: REGAN HUTCHINS MD on Oct 06 2018 12:55PM EST [id number] [id number] REPORT Observed: 09/13/2018 Status: F Source: [place] 2:45 PM [facility] REPOSITORY [facility] Cardiovascular Services [address] [place] [address] MR#: [id number] Acct: [id number] Name: DOM BARBA Rep #: [id number] : 1955 63 From: Ron Gomez MD Primary Care: Clifton Hung MD Status: REG CLI Ordering Dr: Sex: F C Stress Test Report Date: 09/13/2018 Procedure: Exercise tolerance test/imaging study Indications: Shortness of breath/dyspnea on exertion; CAD; status post PCI Consent: Per the patient Procedure: The patient exercised on a Teofilo protocol for 5 minutes completing Stage I and 2 minutes of Stage II achieving a peak heart rate of 144 bpm (90 % predicted maximal heart rate) with a peak blood pressure 148/72 mmHg and a peak MET capacity of 7 METs. The baseline ECG demonstrated normal sinus rhythm with nonspecific T wave abnormality. The peak exercise ECG demonstrated no obvious ECG changes, however, the recovery ECG demonstrated approximately 0.5-1.[address] segment depression in leads II, III, aVF, and V4 through V6 with gradual resolution towards baseline later in recovery. There were no cardiac dysrhythmias pretest, during exercise, or recovery. The functional capacity was considered average. There was chest discomfort and shortness of breath/dyspnea peak exercise with spontaneous resolution in recovery. The examination was discontinued secondary to chest discomfort and shortness of breath. Impression: 1. Technically adequate (percent predicted maximal heart rate greater than 85%) exercise tolerance test 2. Peak exercise ECG demonstrated no obvious ECG changes, however, the recovery ECG demonstrated approximately 0.1-1.[address] segment depression in leads II, III, aVF, and V4 through V6 with gradual resolution towards baseline later in recovery 3. There were no cardiac dysrhythmias pretest, during exercise, or recovery 4. Nuclear images pending Myocardial perfusion imaging study: Technique: The patient was injected with 10.2 mCi of technetium 99m Cardiolite and subsequently rest SPECT Cardiolite nuclear imaging was obtained in the horizontal long, vertical long, and short axis views. The patient exercised on a Teofilo protocol for 5 minutes completing StageI1 and 2 minutes of Stage II achieving a peak heart rate of 144 bpm (90 % predicted maximal heart rate) with a peak blood pressure 148/72 mmHg and a peak MET capacity of 7 METs. The patient was injected with 29.7 mCi of technetium 99m Cardiolite and subsequently stress SPECT Cardiolite nuclear imaging was obtained in the horizontal long, vertical long, and short axis views. A gated Cardiolite study at peak stress was obtained. Interpretation: Rest and stress SPECT Cardiolite nuclear imaging status post realignment, normalization, and attenuation correction, demonstrates the appearance of relative uniform tracer uptake and myocardial perfusion appearing within normal limits. There is end systolic thickening and brightening. The gated Cardiolite study demonstrates myocardial thickening and inward wall motion. The reported LVEF is 81 %. Impression: 1. Rest and stress SPECT Cardiolite nuclear imaging demonstrate relative uniform tracer uptake and myocardial perfusion appearing within normal limits. 2. The gated Cardiolite study reports an LVEF of 81 %. This note was generated with [employer] software. It may contain incorrect words, spelling, and punctuation that were not noted in checking the note before signing. 09/13/18 1445 <Electronically signed by Ron Gomez MD> Date Ron Gomez MD CC: Clifton Hung MD; Ron Gomez MD Date Dictated: 09/13/18 1439 Date Transcribed: 09/13/181438 Supervisor Case Loading: PM Signed CK Collected: 09/08/2018 Status: F Source: [facility] 10:47 AM MAIN [facility] REPOSITORY TYPE CODE TESTS RESULT OUT OF RANGE REFERENCE UNITS LAB CK 42-196 U/L CK 67 Performed By: #### CK, CRP, WSR #### [facility] [address] [address] C-REACTIVE PROTEIN Collected: 09/08/2018 Status: F Source: [place] 10:47 AM [facility] REPOSITORY TYPE CODE TESTS RESULT OUT OF REFERENCE UNITS RANGE LAB CRP <0.9 mg/dL C-Reactive 0.2 Protein Performed By: #### CK, CRP, WSR #### [facility] [address] [place], [place] [address] SED RATE WESTERGREN Collected: 09/08/2018 Status: F Source: [place] 10:47 AM [facility] REPOSITORY TYPE CODE TESTS RESULT OUT OF REFERENCE UNITS RANGE LAB WSR 0-20 mm/hr Sed Rate Westergren 9 Performed By: #### CK, CRP, WSR #### [facility] [address] [place], [place] [address] COMP METABOLIC PANEL Collected: 09/08/2018 Status: F Source: [place] 10:46 AM [facility] REPOSITORY TYPE CODE TESTS RESULT OUT OF REFERENCE UNITS RANGE LAB TP 6.3-8.0 g/dL Protein, Total 6.9 LAB ALB 3.9-4.9 g/dL Albumin 4.5 LAB CA 8.5-10.2 mg/dL Calcium, Total 9.6 LAB TBIL 0.2-1.3 mg/dL Bilirubin, Total 0.3 LAB ALKP 34-123 U/L Alkaline Phosphatase 51 LAB AST 13-35 U/L AST 18 LAB GLU 74-99 mg/dL Glucose High 116 LAB BUN 7-21 mg/dL BUN 20 LAB CRET 0.58-0.96 mg/dL Creatinine 0.81 LAB NA 136-144 mmol/L Sodium 137 LAB K 3.7-5.1 mmol/L Potassium 3.9 LAB CL 97-105 mmol/L Chloride 100 LAB CO2 22-30 mmol/L CO2 28 LAB AGAP mmol/L Anion Gap 9 LAB ALT 7-38 U/L ALT 17 LAB GFRAA eGFR- >60 Amer. LAB GFRNAA . eGFR-All Other Races >60 Result Comment: eGFR (Estimated GFR) Units of measure: mL/min/1.73 meters squared eGFR is derived from the reexpressed MDRD Study equation using the following parameters: serum creatinine, age, gender and race. The creatinine assay has been calibrated to be traceable to IDMS. An eGFR <60 mL/min/1.73m2 for >3 months is consistent with chronic kidney disease. Refer to KDOQI guidelines for clinical interpretation. In patients with unstable renal function, e.g. those with acute kidney injury, the eGFR may not accurately reflect actual GFR. MAGNESIUM Collected: 09/08/2018 Status: F Source: [place] 10:46 AM [facility] REPOSITORY TYPE CODE TESTS RESULT OUT OF REFERENCE UNITS RANGE LAB MG 1.7-2.3 mg/dL Magnesium 1.9 PROGRESS Observed: 09/08/2018 Status: COMPLETED Source: [place] 9:27 AM [facility] REPOSITORY HNO ID: [id number] Author: Clifton Hung Service: (none) Author Type: Physician Type: Progress Notes Filed: 09/08/2018 7:51 PM Note Text: Chief Complaint Patient presents with: Physical Leg Cramps: bilateral shoulder tightness HPI Dom Barba is a 63 year old female who presents here today for WAE and routine. Patient with Hx of HTN, Hyperlipidemia, DM type 2, SEBAS, Vit D def, s/p CVA as well as those reviewed and addressed below. Patient has recent f/u with neurology and felt no changes needed but if LDL above 70 to try crestor 5 mg every other day. Has seen her melt superintendant and will be having a stress test. Wearing her CPAP with benefit. The muscle aches she was/is having in her upper thighs and upper arms did improve with stopping the Mevacor but did not resolve. Also getting cramps in her calves at night and if stretches her calves during the day her toes will cramp. Past medical history, appointments, medications, allergies reviewed. 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 Gomez - Garibay's cyst of knee, left 03/02/2018 - Colon polyp 2011 - Diabetes mellitus type 2, controlled, without complications (HCC) - Essential hypertension 01/16/2016 - Female pattern hair loss - History of depression when - History of hyperparathyroidism - Mixed hyperlipidemia 05/31/2009 statin intolerance - Obstructive sleep apnea on CPAP Sibilia - Psoriasis - Rosacea with ocular symptoms - S/P angioplasty with stent 01/09/2017 stents to mid and proximal left anterior descending Art, and angio of ostium of #2 diagonal - Scalp itch - Seasonal allergies Dr Pompa - TIA (transient ischemic attack) 06/2017 - Vitamin D deficiency 2012 Previous Surgical History PAST SURGICAL HISTORY Procedure Laterality Date - 2D ECHO (EXEP) 06/30/2017 EF=65%, trivial [place], TI and 1+ PI Unchanged from 04/2017 - BUNIONECTOMY, LAPIDUS-TYPE 2009 left great toe - DELIVERY ONLY - COLONOSCOP W/ OR W/O BRSH SPEC 08/09/2018 Colonoscopy - COLONOSCOPY 08/07/15 no polyps, recheck 3-5 yrs - COLONOSCOPY AND POLYPECTOMY 10/12, 10/13 Dr Barba; hyperplastic polyps - EGD W/O OR W/BRUSH/WASH 08/09/2018 EGD - HEART CATHETERIZATION 2004 heart cath-normal per patient - HEART CATHETERIZATION 01/04/2017 EF=60%, left anterior desending septal perferator 95-99% stenosis and diagonal branch 85% stenosis, - HEART SURGERY HX 12/2016 Cardiac stents x 2 - LOW BACK DISK SURGERY 2009 microdecompression L4 L5 - PAST SURGICAL HISTORY OF 2004 parathyroidectomy x1 - PAST SURGICAL HISTORY OF lipoma x2 - PAST SURGICAL HISTORY OF 10/13 left foot surgery (bone cyst in heel, removed) - PAST SURGICAL HISTORY OF 2014 bilateral carpel tunnel - PAST SURGICAL HISTORY OF Right 10/2016 trigger finger release x2 - REMOVAL GALLBLADDER 2004 Cholecystectomy - STENT PLACEMENT 01/06/2017 stents to mid and proximal left anterior descending Art, and angio of ostium of #2 diagonal - STRESS TEST 04/20/2017 WNL - TOTAL ABDOM HYSTERECTOMY 1995 LEDA for benign fibroid, ovaries intact Family History FAMILY HISTORY Problem Relation Age of Onset - other (Pancreatic cancer) Mother - Coronary Artery Disease Father 25 [place] @ 25. CABG - Diabetes Paternal Grandmother - Diabetes Maternal Grandfather - other (Lung cancer) Brother - other (suicide) Son may of been depression Patient Allergies ALLERGIES Allergen Reactions - Brilinta [Ticagrelo* Shortness of Breath - Keflex [Cephalexin] Other: See Comments facial flushing - Lipitor [Atorvastat* Other: See Comments myalgia - Lisinopril Cough - Lovastatin Other: See Comments myalgia - [place]ley [Hydrocodone-* Itching Current Medications Current Outpatient Prescriptions on File Prior to Visit: montelukast (SINGULAIR) 10 mg tablet Take 10 mg by mouth daily at bedtime. doxycycline hyclate 50 mg tab Take by mouth. metFORMIN (GLUCOPHAGE) 500 mg tablet TAKE ONE TABLET BY MOUTH AFTER BREAKFAST AND TWO TABLETS AFTER DINNER TRULICITY 0.75 mg/0.5 mL pnij INJECT 0.75 MG SUBCUTANEOUSLY ONCE EACH WEEK ketoconazole (NIZORAL) 2 % shampoo Apply 1 application to affected area once daily as needed. triamterene-hydrochlorothiazide 37.5-25 mg per capsule Take 1 capsule by mouth once daily. By. Dr. Pompa metoprolol succinate ER (TOPROL XL) 25 mg 24 hr tablet Take 1 tablet by mouth twice daily. Per Dr. Gomez aspirin 81 mg chewable tablet Take 1 tablet by mouth once daily. clopidogrel (PLAVIX) 75 mg tablet Take 1 tablet by mouth once daily. lisinopril (ZESTRIL, PRINIVIL) 5 mg tablet Take 1 tablet by mouth once daily. nitroglycerin sublingual (NITROQUICK) 0.4 mg SL tablet Dissolve 1 tablet under the tongue every 5 minutes as needed for Chest Pain. cholecalciferol, vitamin D3, (VITAMIN D3) 4,000 unit cap Take 1 capsule by mouth once daily. MULTIVITAMIN ORAL Take by mouth. Sawyer-3 Fatty Acids-Vitamin E (FISH OIL) 1,000 mg cap Take 1 capsule by mouth once daily. LACTOBACILLUS ACIDOPHILUS (PROBIOTIC ORAL) Take 1 tablet by mouth once daily. CPAP No current facility-administered medications on file prior to visit. Social History Social History Marital status: Spouse name: Kisha Years of education: 14 Number of children: 3 Occupational History Occupation Employer [employer] Social History Main Topics Smoking status: Former Smoker Packs/day: 1.50 Years: 3.00 Types: Cigarettes Quit date: 11/08/1994 Smokeless tobacco: Never Used Comment: smoked 3 years in mid 89 Alcohol use: No Drug use: No Sexual activity: Yes Partners with: Male Social History Narrative 3 children. 06/2011. 1st child suicide at 17. Remarried. Review of Symptoms REVIEW OF SYSTEMS GENERAL: No weight loss, malaise or fevers HEENT: Negative for frequent or significant headaches, significant change in vision, significant vision problems, significant ear problems or hearing loss, nasal discharge, or nose bleeds, sore throat, difficulty swallowing, mouth lesions, hoarseness NECK: Negative for lumps, goiter, pain and significant neck swelling RESPIRATORY: Negative for cough, hemoptysis, wheezing, COPD, dyspnea. Occasional shortness of breath but no more than typical. CARDIOVASCULAR: Negative for chest pain, increase in typical leg swelling, hypertension, CHF or palpitations GI: No nausea, vomiting, or diarrhea, No heartburn or reflux symptoms and blood : No history of dysuria, frequency or blood. MUSCULOSKELETAL: see HPI SKIN: Negative for lesions, rash, and itching PSYCH: Negative for sleep disturbance, mood disorder and recent psychosocial stressors HEMATOLOGY/LYMPHOLOGY: Negative for prolonged bleeding, bruising easily or swollen nodes ENDOCRINE: Negative for cold or heat intolerance. No significant frequent low BS's. FBs run 120-140 NEURO: No history of headaches, syncope, paralysis, seizures or tremors. Has been noting dizziness. Not so much with position changes but will note with turning her head. Cant say if one way more significant than the other. EXAM: BP 106/60 Pulse 76 Resp 16 Ht 158.8 cm (5' 2.5) Wt 73 kg (161 lb) BMI 28.98 kg/m? General Appearance: Well appearing, alert, in no acute distress, well-hydrated, well nourished.. Skin: Skin color, texture, turgor normal, no suspicious rashes or lesions. Head: Normocephalic, no masses, lesions, tenderness or abnormalities. Eyes: Anicteric sclera. Pupils are equally round and reactive to light. Extraocular movements are intact. . Ears: External ears normal, canals clear. Nose/Sinuses: Nares normal, septum midline, mucosa normal, no drainage or sinus tenderness. Oropharynx: Lips, mucosa, and tongue normal, teeth and gums normal, oropharynx normal. Neck: Supple, no adenopathy; thyroid symmetric, normal size, no bruits. Lungs: Lungs clear to auscultation. No wheezing, rhonchi, rales. Heart: RRR without murmur, gallop, or rubs. No ectopy. Abdomen: Normal abdominal exam, Abdomen soft, non-tender. Bowel sounds normal. No masses, organomegaly. Extremities: No deformities, edema, skin discoloration, clubbing or cyanosis. . Musculoskeletal: Spine range of motion normal. Muscular strength intact, No joint swelling, deformity, or tenderness. Peripheral Pulses: Normal. Neurologic: Gait normal. Reflexes normal and symmetric. Sensation to light touch and crainal nerves 2-12 intact.. Hallpike testing was neg Diabetic Foot Exam: Feet: Shoes and socks removed, no deformities, ulcers, calluses, sensitive to 10 gm microfilament and vibratory exam within normal limits Skin: warm and dry Vascular Pulses: Normal SEMMES-ARGELIA MONOFILAMENT TESTING Left Foot Right Foot Dorsal Surface Intact Dorsal Surface Intact Plantar Surface Intact Plantar Surface Intact Health Maintenance List MAMMOGRAM due on 11/25/2017 DIABETES MED ADHERENCE due on 10/08/2018 DILATED RETINAL EXAM due on 12/03/2018 URINE ALBUMIN:CREATININE RATIO due on 02/25/2019 HBA1C due on 03/02/2019 ANNUAL PCP TEAM CHRONIC DISEASE VISIT due on 06/13/2019 BP CONTROLLED (<130/80) due on 08/02/2019 LDL CHOLESTEROL due on 09/01/2019 DIABETIC FOOT EXAM due on 09/08/2019 DTAP,TDAP,TD(2 - Td) due on 02/24/2024 COLORECTAL CANCER SCREENING,SEE MODIFIER due on 08/09/2028 ONE PNEUMOVAX PRIOR TO AGE 65 Completed INFLUENZA Completed HEPATITIS C SCREENING Completed Data reviewed Component Latest Ref Rng AND Units 02/25/2018 09/01/2018 WBC 3.70 - 11.00 k/uL 5.68 RBC 3.90 - 5.20 m/uL 4.08 Hemoglobin 11.5 - 15.5 g/dL 12.8 Hematocrit 36.0 - 46.0 % 39.9 MCV 80.0 - 100.0 fL 97.8 MCH 26.0 - 34.0 pG 31.4 MCHC 30.5 - 36.0 g/dL 32.1 RDW-CV 11.5 - 15.0 % 14.5 Platelet Count 150 - 400 k/uL 216 MPV 9.0 - 12.7 fL 10.0 Neut% % 63.8 Abs Neut (ANC) 1.45 - 7.50 k/uL 3.61 Lymph% % 26.4 Abs Lymph 1.00 - 4.00 k/uL 1.50 Harper% % 8.5 Abs Harper <0.87 k/uL 0.48 Eosin% % 0.9 Abs Eosin <0.46 k/uL 0.05 Baso% % 0.4 Abs Baso <0.11 k/uL <0.03 Nucleated Reds 0 /100 WBC 0.0 Absolute nRBC <0.01 k/uL <0.01 Diff Type Auto Diff Protein, Total 6.3 - 8.0 g/dL 7.1 Albumin 3.9 - 4.9 g/dL 4.2 Calcium 8.5 - 10.2 mg/dL 9.1 Bilirubin, Total 0.2 - 1.3 mg/dL 0.4 Alkaline Phosphatase 32 - 117 U/L 48 AST 13 - 35 U/L 26 Glucose 74 - 99 mg/dL 122 (H) BUN 7 - 21 mg/dL 12 Creatinine 0.58 - 0.96 mg/dL 0.85 Sodium 136 - 144 mmol/L 142 Potassium 3.7 - 5.1 mmol/L 4.3 Chloride 97 - 105 mmol/L 100 CO2 22 - 30 mmol/L 30 Anion Gap 9 - 18 mmol/L 12 ALT 7 - 38 U/L 20 eGFR- >60 eGFR-All Other Races . >60 Cholesterol, Total <200 mg/dL 116 240 (H) Triglyceride <150 mg/dL 93 138 HDL Cholesterol >39 mg/dL 34 (L) 34 (L) LDL Cholesterol <100 mg/dL 63 178 (H) Non HDL Cholesterol <130 mg/dL 82 206 (H) Fasting Time hrs 11 11 VLDL Cholesterol <30 mg/dL 19 28 TC:HDL Ratio <5.10 3.41 7.06 (H) LDL:HDL Ratio <2.54 1.85 5.24 (H) Hemoglobin A1C 4.3 - 5.6 % 6.8 (H) 6.6 (H) Estimated Average Glucose mg/dL 148 143 Vitamin D 25 Hydroxy 31.0 - 80.0 ng/mL 39.7 A/P ASSESSMENT/PLAN: 1. Well adult exam - ICD9: V70.0, ICD10: Z00.00 (primary diagnosis) - Encouraged monthly Breast Self Exam - Follow up for annual exam in one year. 2. Controlled type 2 diabetes mellitus without complication, without long-term current use of insulin (HCC) - ICD9: 250.00, ICD10: E11.9 Controlled. - Continue current medications - Encouraged regular aerobic exercise and weight loss - Daily Asprin therapy recommended - BP goal of <130/80 - LDL goal of <100 - COMP METABOLIC PANEL - MAGNESIUM BLD 3. Diabetic eye exam (HCC) - ICD9: V72.0, 250.00, ICD10: Z01.00, E11.9 - Up to date 4. Essential hypertension - ICD9: 401.9, ICD10: I10 - good control - But lower than needs to be and may be a source of her dizziness at times. - Will stop the diazide and just do HCTZ 25 mg a day - Recommended regular aerobic exercise. - Recommend home blood pressure monitoring, to bring results in on next visit - Goal of BP <130/80 - COMP METABOLIC PANEL 5. Atherosclerosis of [place] coronary artery of [place] heart with stable angina pectoris (HCC) - ICD9: 414.01, 413.9, ICD10: I25.118 - Clinically stable no changes will monitor along with cardio 6. Mixed hyperlipidemia - ICD9: 272.2, ICD10: E78.2 - poor control - Begin treatment with rosuvastatin (Crestor) 5 mg QOD - Encouraged following a low fat, low cholesterol diet. - Discussed the benefits of regular aerobic exercise and weight loss. - Encouraged following a low carbohydrate, healthy oil intake diet. - COMP METABOLIC PANEL 7. History of transient ischemic attack (TIA) - ICD9: V12.54, ICD10: Z86.73 - Clinically stable - Cont to maximize DM, HTN and lipid control - Cont baby ASA 8. Obstructive sleep apnea on CPAP - ICD9: 327.23, V46.8, ICD10: G47.33, Z99.89 - Benefiting from CPAP is to continue 9. Muscle cramps - ICD9: 729.82, ICD10: R25.2 - Check - COMP METABOLIC PANEL - MAGNESIUM BLD 10. Vitamin D deficiency - ICD9: 268.9, ICD10: E55.9 - Controlled with replacement 11. Myalgia - ICD9: 729.1, ICD10: M79.10 Check - C-REACTIVE PROTEIN (CRP) - SED RATE WESTERGREN - CK CREATINE KINASE 12. Dizziness - ICD9: 780.4, ICD10: R42 - See #4 Signed Prescriptions Disp Refills dulaglutide (TRULICITY) 0.75 mg / 0.5 ml subcutaneous pen injector 12 Pen 1 Sig: INJECT 0.75 MG SUBCUTANEOUSLY ONCE EACH WEEK MARIUSZ: No hydroCHLOROthiazide (HYDRODIURIL, ESIDRIX) 25 mg tablet 90 tablet 1 Sig: Take 1 tablet by mouth once daily. rosuvastatin (CRESTOR) 5 mg tablet 90 tablet 1 Sig: Take 1 tablet by mouth once daily. F/u in 4 [facility] routine check FLP, LFT's and A1c prior Clifton Hung MD CNOV Observed: 09/08/2018 Status: COMPLETED Source: [place] 8:20 AM [facility] REPOSITORY Office Visit (FAMPWS) DOM BARBA ([id number]) 1955 F Date Time Provider Department 09/08/18 8:20 AM [facility] During your visit today, we recorded the following information about you: Pulse Respiration Blood pressure Weight 76/minute 16/minute 106/60 73 kg Height 1.588 m Clifton Hung MD 09/08/2018 7:51 PM Signed Chief Complaint Patient presents with: Physical Leg Cramps: bilateral shoulder tightness HPI Dom Vel Barba is a 63 year old female who presents here today for WAE and routine. Patient with Hx of HTN, Hyperlipidemia, DM type 2, SEBAS, Vit D def, s/p CVA as well as those reviewed and addressed below. Patient has recent f/u with neurology and felt no changes needed but if LDL above 70 to try crestor 5 mg every other day. Has seen her melt superintendant and will be having a stress test. Wearing her CPAP with benefit. The muscle aches she was/is having in her upper thighs and upper arms did improve with stopping the Mevacor but did not resolve. Also getting cramps in her calves at night and if stretches her calves during the day her toes will cramp. Past medical history, appointments, medications, allergies reviewed. 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 Gomez - Garibay's cyst of knee, left 03/02/2018 - Colon polyp 2011 - Diabetes mellitus type 2, controlled, without complications ([facility]) - Essential hypertension 01/16/2016 - Female pattern hair loss - History of depression when - History of hyperparathyroidism - Mixed hyperlipidemia 05/31/2009 statin intolerance - Obstructive sleep apnea on CPAP Sibilia - Psoriasis - Rosacea with ocular symptoms - S/P angioplasty with stent 01/09/2017 stents to mid and proximal left anterior descending Art, and angio of ostium of #2 diagonal - Scalp itch - Seasonal allergies Dr Pompa - TIA (transient ischemic attack) 06/2017 - Vitamin D deficiency 2012 Previous Surgical History PAST SURGICAL HISTORY Procedure Laterality Date - 2D ECHO (EXEP) 06/30/2017 EF=65%, trivial [place], TI and 1+ PI Unchanged from 04/2017 - BUNIONECTOMY, LAPIDUS-TYPE 2009 left great toe - DELIVERY ONLY - COLONOSCOP W/ OR W/O BRSH SPEC 08/09/2018 Colonoscopy - COLONOSCOPY 08/07/15 no polyps, recheck 3-5 yrs - COLONOSCOPY AND POLYPECTOMY 10/12, 10/13 Dr Barba; hyperplastic polyps - EGD W/O OR W/BRUSH/WASH 08/09/2018 EGD - HEART CATHETERIZATION 2004 heart cath-normal per patient - HEART CATHETERIZATION 01/04/2017 EF=60%, left anterior desending septal perferator 95-99% stenosis and diagonal branch 85% stenosis, - HEART SURGERY HX 12/2016 Cardiac stents x 2 - LOW BACK DISK SURGERY 2009 microdecompression L4 L5 - PAST SURGICAL HISTORY OF 2004 parathyroidectomy x1 - PAST SURGICAL HISTORY OF lipoma x2 - PAST SURGICAL HISTORY OF 10/13 left foot surgery (bone cyst in heel, removed) - PAST SURGICAL HISTORY OF 2014 bilateral carpel tunnel - PAST SURGICAL HISTORY OF Right 10/2016 trigger finger release x2 - REMOVAL GALLBLADDER 2004 Cholecystectomy - STENT PLACEMENT 01/06/2017 stents to mid and proximal left anterior descending Art, and angio of ostium of #2 diagonal - STRESS TEST 04/20/2017 WNL - TOTAL ABDOM HYSTERECTOMY 1995 LEDA for benign fibroid, ovaries intact Family History FAMILY HISTORY Problem Relation Age of Onset - other (Pancreatic cancer) Mother - Coronary Artery Disease Father 25 [place] @ 25. CABG - Diabetes Paternal Grandmother - Diabetes Maternal Grandfather - other (Lung cancer) Brother - other (suicide) Son may of been depression Patient Allergies ALLERGIES Allergen Reactions - Brilinta [Ticagrelo* Shortness of Breath - Keflex [Cephalexin] Other: See Comments facial flushing - Lipitor [Atorvastat* Other: See Comments myalgia - Lisinopril Cough - Lovastatin Other: See Comments myalgia - [place] [Hydrocodone-* Itching Current Medications Current Outpatient Prescriptions on File Prior to Visit: montelukast (SINGULAIR) 10 mg tablet Take 10 mg by mouth daily at bedtime. doxycycline hyclate 50 mg tab Take by mouth. metFORMIN (GLUCOPHAGE) 500 mg tablet TAKE ONE TABLET BY MOUTH AFTER BREAKFAST AND TWO TABLETS AFTER DINNER TRULICITY 0.75 mg/0.5 mL pnij INJECT 0.75 MG SUBCUTANEOUSLY ONCE EACH WEEK ketoconazole (NIZORAL) 2 % shampoo Apply 1 application to affected area once daily as needed. triamterene-hydrochlorothiazide 37.5-25 mg per capsule Take 1 capsule by mouth once daily. By. Dr. Pompa metoprolol succinate ER (TOPROL XL) 25 mg 24 hr tablet Take 1 tablet by mouth twice daily. Per Dr. Gomez aspirin 81 mg chewable tablet Take 1 tablet by mouth once daily. clopidogrel (PLAVIX) 75 mg tablet Take 1 tablet by mouth once daily. lisinopril (ZESTRIL, PRINIVIL) 5 mg tablet Take 1 tablet by mouth once daily. nitroglycerin sublingual (NITROQUICK) 0.4 mg SL tablet Dissolve 1 tablet under the tongue every 5 minutes as needed for Chest Pain. cholecalciferol, vitamin D3, (VITAMIN D3) 4,000 unit cap Take 1 capsule by mouth once daily. MULTIVITAMIN ORAL Take by mouth. Sawyer-3 Fatty Acids-Vitamin E (FISH OIL) 1,000 mg cap Take 1 capsule by mouth once daily. LACTOBACILLUS ACIDOPHILUS (PROBIOTIC ORAL) Take 1 tablet by mouth once daily. CPAP No current facility-administered medications on file prior to visit. Social History Social History Marital status: Spouse name: Kisha Years of education: 14 Number of children: 3 Occupational History Occupation Employer Comment [employer] Social History Main Topics Smoking status: Former Smoker Packs/day: 1.50 Years: 3.00 Types: Cigarettes Quit date: 11/08/1994 Smokeless tobacco: Never Used Comment: smoked 3 years in mid 90 Alcohol use: No Drug use: No Sexual activity: Yes Partners with: Male Social History Narrative 3 children. 06/2011. 1st child suicide at 17. Remarried. Review of Symptoms REVIEW OF SYSTEMS GENERAL: No weight loss, malaise or fevers HEENT: Negative for frequent or significant headaches, significant change in vision, significant vision problems, significant ear problems or hearing loss, nasal discharge, or nose bleeds, sore throat, difficulty swallowing, mouth lesions, hoarseness NECK: Negative for lumps, goiter, pain and significant neck swelling RESPIRATORY: Negative for cough, hemoptysis, wheezing, COPD, dyspnea. Occasional shortness of breath but no more than typical. CARDIOVASCULAR: Negative for chest pain, increase in typical leg swelling, hypertension, CHF or palpitations GI: No nausea, vomiting, or diarrhea, No heartburn or reflux symptoms and blood : No history of dysuria, frequency or blood. MUSCULOSKELETAL: see HPI SKIN: Negative for lesions, rash, and itching PSYCH: Negative for sleep disturbance, mood disorder and recent psychosocial stressors HEMATOLOGY/LYMPHOLOGY: Negative for prolonged bleeding, bruising easily or swollen nodes ENDOCRINE: Negative for cold or heat intolerance. No significant frequent low BS's. FBs run 120-140 NEURO: No history of headaches, syncope, paralysis, seizures or tremors. Has been noting dizziness. Not so much with position changes but will note with turning her head. Cant say if one way more significant than the other. EXAM: BP 106/60 Pulse 76 Resp 16 Ht 158.8 cm (5' 2.5) Wt 73 kg (161 lb) BMI 28.98 kg/m? General Appearance: Well appearing, alert, in no acute distress, well-hydrated, well nourished.. Skin: Skin color, texture, turgor normal, no suspicious rashes or lesions. Head: Normocephalic, no masses, lesions, tenderness or abnormalities. Eyes: Anicteric sclera. Pupils are equally round and reactive to light. Extraocular movements are intact. . Ears: External ears normal, canals clear. Nose/Sinuses: Nares normal, septum midline, mucosa normal, no drainage or sinus tenderness. Oropharynx: Lips, mucosa, and tongue normal, teeth and gums normal, oropharynx normal. Neck: Supple, no adenopathy; thyroid symmetric, normal size, no bruits. Lungs: Lungs clear to auscultation. No wheezing, rhonchi, rales. Heart: RRR without murmur, gallop, or rubs. No ectopy. Abdomen: Normal abdominal exam, Abdomen soft, non-tender. Bowel sounds normal. No masses, organomegaly. Extremities: No deformities, edema, skin discoloration, clubbing or cyanosis. . Musculoskeletal: Spine range of motion normal. Muscular strength intact, No joint swelling, deformity, or tenderness. Peripheral Pulses: Normal. Neurologic: Gait normal. Reflexes normal and symmetric. Sensation to light touch and crainal nerves 2-12 intact.. Hallpike testing was neg Diabetic Foot Exam: Feet: Shoes and socks removed, no deformities, ulcers, calluses, sensitive to 10 gm microfilament and vibratory exam within normal limits Skin: warm and dry Vascular Pulses: Normal SEMMES-ARGELIA MONOFILAMENT TESTING Left Foot Right Foot Dorsal Surface Intact Dorsal Surface Intact Plantar Surface Intact Plantar Surface Intact Health Maintenance List MAMMOGRAM due on 11/25/2017 DIABETES MED ADHERENCE due on 10/08/2018 DILATED RETINAL EXAM due on 12/03/2018 URINE ALBUMIN:CREATININE RATIO due on 02/25/2019 HBA1C due on 03/02/2019 ANNUAL PCP TEAM CHRONIC DISEASE VISIT due on 06/13/2019 BP CONTROLLED (<130/80) due on 08/02/2019 LDL CHOLESTEROL due on 09/01/2019 DIABETIC FOOT EXAM due on 09/08/2019 DTAP,TDAP,TD(2 - Td) due on 02/24/2024 COLORECTAL CANCER SCREENING,SEE MODIFIER due on 08/09/2028 ONE PNEUMOVAX PRIOR TO AGE 65 Completed INFLUENZA Completed HEPATITIS C SCREENING Completed Data reviewed Component Latest Ref Rng AND Units 02/25/2018 09/01/2018 WBC 3.70 - 11.00 k/uL 5.68 RBC 3.90 - 5.20 m/uL 4.08 Hemoglobin 11.5 - 15.5 g/dL 12.8 Hematocrit 36.0 - 46.0 % 39.9 MCV 80.0 - 100.0 fL 97.8 MCH 26.0 - 34.0 pG 31.4 MCHC 30.5 - 36.0 g/dL 32.1 RDW-CV 11.5 - 15.0 % 14.5 Platelet Count 150 - 400 k/uL 216 MPV 9.0 - 12.7 fL 10.0 Neut% % 63.8 Abs Neut (ANC) 1.45 - 7.50 k/uL 3.61 Lymph% % 26.4 Abs Lymph 1.00 - 4.00 k/uL 1.50 Harper% % 8.5 Abs Harper <0.87 k/uL 0.48 Eosin% % 0.9 Abs Eosin <0.46 k/uL 0.05 Baso% % 0.4 Abs Baso <0.11 k/uL <0.03 Nucleated Reds 0 /100 WBC 0.0 Absolute nRBC <0.01 k/uL <0.01 Diff Type Auto Diff Protein, Total 6.3 - 8.0 g/dL 7.1 Albumin 3.9 - 4.9 g/dL 4.2 Calcium 8.5 - 10.2 mg/dL 9.1 Bilirubin, Total 0.2 - 1.3 mg/dL 0.4 Alkaline Phosphatase 32 - 117 U/L 48 AST 13 - 35 U/L 26 Glucose 74 - 99 mg/dL 122 (H) BUN 7 - 21 mg/dL 12 Creatinine 0.58 - 0.96 mg/dL 0.85 Sodium 136 - 144 mmol/L 142 Potassium 3.7 - 5.1 mmol/L 4.3 Chloride 97 - 105 mmol/L 100 CO2 22 - 30 mmol/L 30 Anion Gap 9 - 18 mmol/L 12 ALT 7 - 38 U/L 20 eGFR- >60 eGFR-All Other Races . >60 Cholesterol, Total <200 mg/dL 116 240 (H) Triglyceride <150 mg/dL 93 138 HDL Cholesterol >39 mg/dL 34 (L) 34 (L) LDL Cholesterol <100 mg/dL 63 178 (H) Non HDL Cholesterol <130 mg/dL 82 206 (H) Fasting Time hrs 11 11 VLDL Cholesterol <30 mg/dL 19 28 TC:HDL Ratio <5.10 3.41 7.06 (H) LDL:HDL Ratio <2.54 1.85 5.24 (H) Hemoglobin A1C 4.3 - 5.6 % 6.8 (H) 6.6 (H) Estimated Average Glucose mg/dL 148 143 Vitamin D 25 Hydroxy 31.0 - 80.0 ng/mL 39.7 A/P ASSESSMENT/PLAN: 1. Well adult exam - ICD9: V70.0, ICD10: Z00.00 (primary diagnosis) - Encouraged monthly Breast Self Exam - Follow up for annual exam in one year. 2. Controlled type 2 diabetes mellitus without complication, without long-term current use of insulin (HCC) - ICD9: 250.00, ICD10: E11.9 Controlled. - Continue current medications - Encouraged regular aerobic exercise and weight loss - Daily Asprin therapy recommended - BP goal of <130/80 - LDL goal of <100 - COMP METABOLIC PANEL - MAGNESIUM BLD 3. Diabetic eye exam (HCC) - ICD9: V72.0, 250.00, ICD10: Z01.00, E11.9 - Up to date 4. Essential hypertension - ICD9: 401.9, ICD10: I10 - good control - But lower than needs to be and may be a source of her dizziness at times. - Will stop the diazide and just do HCTZ 25 mg a day - Recommended regular aerobic exercise. - Recommend home blood pressure monitoring, to bring results in on next visit - Goal of BP <130/80 - COMP METABOLIC PANEL 5. Atherosclerosis of [place] coronary artery of [place] heart with stable angina pectoris (HCC) - ICD9: 414.01, 413.9, ICD10: I25.118 - Clinically stable no changes will monitor along with cardio 6. Mixed hyperlipidemia - ICD9: 272.2, ICD10: E78.2 - poor control - Begin treatment with rosuvastatin (Crestor) 5 mg QOD - Encouraged following a low fat, low cholesterol diet. - Discussed the benefits of regular aerobic exercise and weight loss. - Encouraged following a low carbohydrate, healthy oil intake diet. - COMP METABOLIC PANEL 7. History of transient ischemic attack (TIA) - ICD9: V12.54, ICD10: Z86.73 - Clinically stable - Cont to maximize DM, HTN and lipid control - Cont baby ASA 8. Obstructive sleep apnea on CPAP - ICD9: 327.23, V46.8, ICD10: G47.33, Z99.89 - Benefiting from CPAP is to continue 9. Muscle cramps - ICD9: 729.82, ICD10: R25.2 - Check - COMP METABOLIC PANEL - MAGNESIUM BLD 10. Vitamin D deficiency - ICD9: 268.9, ICD10: E55.9 - Controlled with replacement 11. Myalgia - ICD9: 729.1, ICD10: M79.10 Check - C-REACTIVE PROTEIN (CRP) - SED RATE WESTERGREN - CK CREATINE KINASE 12. Dizziness - ICD9: 780.4, ICD10: R42 - See #4 Signed Prescriptions Disp Refills dulaglutide (TRULICITY) 0.75 mg / 0.5 ml subcutaneous pen injector 12 Pen 1 Sig: INJECT 0.75 MG SUBCUTANEOUSLY ONCE EACH WEEK MARIUSZ: No hydroCHLOROthiazide (HYDRODIURIL, ESIDRIX) 25 mg tablet 90 tablet 1 Sig: Take 1 tablet by mouth once daily. rosuvastatin (CRESTOR) 5 mg tablet 90 tablet 1 Sig: Take 1 tablet by mouth once daily. F/u in 4 [facility] routine check FLP, LFT's and A1c prior MD Anitha Chadwick Ma 09/08/2018 9:57 AM Signed Orthostatic vitals Supine: 100/62 Pulse: 76 Sittin/64 Pulse:78 Standin/60 Pulse: 76 Clifton Hung MD 09/08/2018 10:13 AM Addendum Please take the crestor 5 mg just every other day (the bottle says daily) Please get fasting labs on or after 12/23/2018 prior to next visit. Referring Provider: CLIFTON HUNG [[id number]] Allergies As of Date: 09/08/2018 Noted Allergy Reaction BRILINTA (TICAGRELOR) 06/28/2017 12 - Shortness of Breath KEFLEX (CEPHALEXIN) 02/02/2006 14 - Other: See Comments Comments: facial flushing LIPITOR (ATORVASTATIN) 07/21/2013 14 - Other: See Comments Comments: myalgia LISINOPRIL 07/21/2013 3 - Cough LOVASTATIN 07/21/2013 14 - Other: See Comments Comments: myalgia NORCO (HYDROCODONE-ACETAMINOPHEN) 10/29/2016 9 - Itching Date Reviewed: 09/08/2018 Reviewed by: Clifton Hung - Fully Assessed Reason for Visit: Physical [83] Leg Cramps [1739] Cmt: bilateral shoulder tightness Reason For Visit History Recorded Primary Visit Diagnosis:Well adult exam [Z00.00] Other Visit Diagnoses:Controlled type 2 diabetes mellitus without complication, without long-term current use of insulin (HCC) [E11.9] Diabetic eye exam (HCC) [Z01.00, E11.9] Essential hypertension [I10] Atherosclerosis of [place] coronary artery of [place] heart with stable angina pectoris (HCC) [I25.118] Mixed hyperlipidemia [E78.2] History of transient ischemic attack (TIA) [Z86.73] Obstructive sleep apnea on CPAP [G47.33, Z99.89] Muscle cramps [R25.2] Vitamin D deficiency [E55.9] Myalgia [M79.10] Dizziness [R42] Order(s):dulaglutide (TRULICITY) 0.75 mg / 0.5 ml subcutaneous pen injectorINJECT 0.75 MG SUBCUTANEOUSLY ONCE EACH WEEKDisp: 12 PenRfl: 1 COMP METABOLIC PANEL [SQCMP] Order #: [id number] FUTURE C-REACTIVE PROTEIN (CRP) [SQCRP] Order #: [id number] FUTURE SED RATE WESTERGREN [SQWSR] Order #: [id number] FUTURE CK CREATINE KINASE [SQCK] Order #: [id number] FUTURE MAGNESIUM BLD [SQMG1] Order #: [id number] FUTURE LIPID PANEL, NONFASTING [SQLIPNF] Order #: [id number] FUTURE HGB A1C [KOGHO6Z] Order #: [id number] FUTURE HEPATIC FUNCTION PNL [SQHFP] Order #: [id number] FUTURE hydroCHLOROthiazide (HYDRODIURIL, ESIDRIX) 25 mg tabletTake 1 tablet by mouth once daily.Disp: 90 tabletRfl: 1 rosuvastatin (CRESTOR) 5 mg tabletTake 1 tablet by mouth once daily.Disp: 90 tabletRfl: 1 Prescriptions as of 09/08/2018 Sig: MAGNESIUM SULFATE ORAL Take 500 mg by mouth. DULAGLUTIDE 0.75 MG/0.5 ML HERNANDEZ* INJECT 0.75 MG SUBCUTANEOUSLY* MONTELUKAST 10 MG TABLET Take 10 mg by mouth daily at * DOXYCYCLINE HYCLATE 50 MG TAB* Take by mouth. METFORMIN 500 MG TABLET TAKE ONE TABLET BY MOUTH AFTE* KETOCONAZOLE 2 % SHAMPOO Apply 1 application to affect* METOPROLOL SUCCINATE ER 25 MG* Take 1 tablet by mouth twice * ASPIRIN 81 MG CHEWABLE TABLET Take 1 tablet by mouth once d* CLOPIDOGREL 75 MG TABLET Take 1 tablet by mouth once d* LISINOPRIL 5 MG TABLET Take 1 tablet by mouth once d* NITROGLYCERIN 0.4 MG SUBLINGU* Dissolve 1 tablet under the t* CHOLECALCIFEROL (VITAMIN D3) * Take 1 capsule by mouth once * MULTIVITAMIN ORAL Take by mouth. OMEGA-3 FATTY ACIDS-VITAMIN E* Take 1 capsule by mouth once * PROBIOTIC ORAL Take 1 tablet by mouth once d* * CPAP HYDROCHLOROTHIAZIDE 25 MG TAB* Take 1 tablet by mouth once d* ROSUVASTATIN 5 MG TABLET Take 1 tablet by mouth once d* Problem List As Of Date 09/08/2018 Noted Resolved Mixed hyperlipidemia [E78.2] INVALID FOR* Priority: A More... Obstructive sleep apnea on CPAP [G47.33, Z99.89] Priority: B More... Scalp itch [L29.9] Priority: D Seasonal allergies [J30.2] Priority: B More... History of depression [Z86.59] Priority: B More... More... Arthritis [M19.90] Priority: M More... Rosacea [L71.9] Priority: D More... History of hyperparathyroidism [Z86.39] Priority: B More... 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 Diabetic eye exam (HCC) [Z01.00, E11.9] INVALID FOR* Priority: A More... Well adult exam [Z00.00] INVALID FOR* Priority: E More... Colon cancer screening [Z12.11] INVALID FOR* Controlled type 2 diabetes mellitus without com*INVALID FOR* Priority: A Atherosclerosis of [place] coronary artery with *INVALID FOR* Priority: A More... S/P angioplasty with stent [Z95.9] INVALID FOR* Priority: A More... Meniere disease, right [H81.01] INVALID FOR* Priority: B History of transient ischemic attack (TIA) [Z86*INVALID FOR* Priority: A More... Garibay's cyst of knee, left [M71.22] INVALID FOR* Priority: M Other instructions from your clinician: Please take the crestor 5 mg just every other day (the bottle says daily) Please get fasting labs on or after 12/23/2018 prior to next visit. Visit Notes: >> Anitha Medina Ma Mary Sep 08, 2018 9:51 AM Status: Signed Orthostatic vitals Supine: 100/62 Pulse: 76 Sittin/64 Pulse:78 Standin/60 Pulse: 76 Prescriptions ordered this encounter Disp Refills Start End DULAGLUTIDE 0.75 MG/0.5 ML SUBCUTANE* 12 P* 1 09/08/2018 Sig: INJECT 0.75 MG SUBCUTANEOUSLY ONCE EACH WEEK HYDROCHLOROTHIAZIDE 25 MG TABLET 90 t* 1 09/08/2018 Cmt: Patient will be stopping the diazide. Route: ORAL Sig: Take 1 tablet by mouth once daily. ROSUVASTATIN 5 MG TABLET 90 t* 1 09/08/2018 Route: ORAL Sig: Take 1 tablet by mouth once daily. Medications Discontinued During This Encounter TRULICITY 0.75 mg/0.5 mL pnij 12 P* 1 05/30/2018 09/08/2018 Cmt: Please consider 90 day supplies to promote better adherence Sig: INJECT 0.75 MG SUBCUTANEOUSLY ONCE EACH WEEK Disc: Reason for discontinue is not on file. triamterene-hydrochlorothiazide 37.5* 10/29/2017 09/08/2018 Class: Med Update Route: ORAL Sig: Take 1 capsule by mouth once daily. By. Dr. Pompa Disc: Changing Therapy/Dosage Form Disposition: Return in about 4 months (around 01/06/2019) for jodi Luong. Follow-up and Disposition History Recorded Letter Text [facility] [address], [place] [address] Dom Barba [address] [place] [id number] Clinic #: [id number] 09/08/2018 To whom it may concern: I am requesting that my patient Mrs. Barba be allowed to have water near her at work to assist in staying appropriately hydrated to reduce symptoms of dizziness and near syncope caused by dehydration. Sincerely, Clifton Hung MD Encounter Status:Closed by CLIFTON HUNG on 09/08/18 HEMOGLOBIN A1C Collected: 09/01/2018 Status: F Source: [place] 10:14 AM [facility] REPOSITORY TYPE CODE TESTS RESULT OUT OF REFERENCE UNITS RANGE LAB HGBA1C 4.3-5.6 % High Hemoglobin A1c 6.6 LAB HBA0 mg/dL Est. Average Glucose 143 Result Comment: eAG: (Estimated average glucose) is a calculated value from HgbA1c and is branch service representative of the average blood glucose level in the last 2-3 month period. Performed By: #### HBA1C, CBCDIF, LIPB #### [facility] [address] [place], [place] [address] CBC AND DIFFERENTIAL Collected: 09/01/2018 Status: F Source: [place] 10:14 AM [facility] REPOSITORY TYPE CODE TESTS RESULT OUT OF REFERENCE UNITS RANGE LAB WBC 3.70-11.00 k/uL WBC 5.68 LAB RBC 3.90-5.20 m/uL RBC 4.08 LAB HGB 11.5-15.5 g/dL Hemoglobin 12.8 LAB HCT 36.0-46.0 % Hematocrit 39.9 LAB MCV 80.0-100.0 fL MCV 97.8 LAB MCH 26.0-34.0 pG MCH 31.4 LAB MCHC 30.5-36.0 g/dL MCHC 32.1 LAB RDWCV 11.5-15.0 % RDW-CV 14.5 LAB PLTCT 150-400 k/uL Platelet Count 216 LAB MPV 9.0-12.7 fL MPV 10.0 LAB ANEUT % Neut% 63.8 LAB AANEUT 1.45-7.50 k/uL Abs Neut 3.61 LAB ALYMP % Lymph% 26.4 LAB AALYMP 1.00-4.00 k/uL Abs Lymph 1.50 LAB AMONO % Harper% 8.5 LAB AAMONO <0.87 k/uL Abs Harper 0.48 LAB AEOS % Eosin% 0.9 LAB AAEOS <0.46 k/uL Abs Eosin 0.05 LAB ABASO % Baso% 0.4 LAB AABASO <0.11 k/uL Abs Baso <0.03 LAB AUNRBC 0 /100 WBC NRBCs 0.0 LAB ABNRBC <0.01 k/uL Absolute nRBC <0.01 LAB DTYP DTYPE Auto Diff Performed By: #### HBA1C, CBCDIF, LIPB #### [facility] [address] [place], [place] [address] LIPID PANEL, BASIC Collected: 09/01/2018 Status: F Source: [place] 10:14 AM [facility] REPOSITORY TYPE CODE TESTS RESULT OUT OF REFERENCE UNITS RANGE LAB CHOL <200 mg/dL Cholesterol High 240 Result Comment: <200 mg/dL, Desirable 200-239 mg/dL, Borderline high >239 mg/dL, High LAB TRIGLY <150 mg/dL Triglyceride 138 Result Comment: <150 mg/dL, Normal 150-199 mg/dL, Borderline high 200-499 mg/dL, High >499 mg/dL, Very high LAB HDL >39 mg/dL HDL-Cholesterol Low 34 Result Comment: 40-59 mg/dL, Acceptable >59 mg/dL, High: Negative risk factor for coronary heart disease <40 mg/dL, Low: Positive risk factor for coronary heart disease LAB LDL <100 mg/dL LDL-Cholesterol High 178 Result Comment: <100 mg/dL, Optimal 100-129 mg/dL, Near optimal/above optimal 130-159 mg/dL, Borderline high 160-189 mg/dL, High >189 mg/dL, Very high Secondary prevention optimal LDL Cholesterol levels are recommended to be < 70 mg/dL LAB NONHDL <130 mg/dL Non HDL High Cholesterol 206 Result Comment: <130 mg/dL, Optimal 130-159 mg/dL, Near optimal/above optimal 160-189 mg/dL, Borderline high 190-219 mg/dL, High >219 mg/dL, Very high Secondary prevention optimal non HDL Cholesterol levels are recommended to be < 100 mg/dL LAB FT hrs Fasting Time 11 LAB VLDL <30 mg/dL VLDL Cholesterol 28 LAB TCHDL <5.10 High TC:HDL Ratio 7.06 LAB LDLHDL <2.54 High LDL:HDL Ratio 5.24 Result Comment: Reference: 1. National Cholesterol Education Program ATP III Guideline At-A-Glance Quick Desk Reference: National Heart, Lung, and Blood [place]. National Institutes of Health. 2001: NIH Publication No. 01-3305. 2. An International Atherosclerosis Society position paper: global recommendations for the management of dyslipidemia: executive summary, Atherosclerosis. 2014: 232(2):410-413. Performed By: #### HBA1C, CBCDIF, LIPB #### [facility] [address] [place], [place] [address] CARDIOLOGY VISIT Observed: 08/22/2018 Status: F Source: [place] REPORT 12:44 PM [facility] REPOSITORY [facility] [address] [place] [address] OFFICE VISIT Date of Service: 08/22/18 MR#: [id number] Acct: [id number] Name: DOM BARBA Rep #: [id number] : 1955 Provider: Ron Gomez MD Age/Sex: 63/F Location[place] [facility] Status: Signed HPI HPI Details: DOM BARBA, is a 63 F who presents to the office today for outpatient cardiovascular follow-up. She notes overall she feels like she is done reasonably well. However she can become short of breath and dyspneic with activity as well is tired and fatigued. She is unclear whether this is related to her cardiovascular disease or being busy at work . She denies any ongoing issues with respect to orthopnea or PND or worsening peripheral pitting edema. There has been no ongoing near syncope or syncope. She has not had use nitroglycerin sublingual. She brings with her an electronic representation of her lipid profile performed earlier this year at the [facility]. It appears her total cholesterol is 116. She states those numbers were to be forwarded to this office for continuity of care. However they do not appear to have arrived. Intake Vital Signs08/22/18 Height 5 ft 3 in 08/22/18 Weight: 165 lb 08/22/18 Body Mass Index (BMI) 29.2 08/22/18 Blood Pressure 134/88 H Intake Visit Reasons: 9 M FU Allergies cephalexin monohydrate [From Keflex] Adverse Reaction (Verified 06/06/18 14:40) Other pravastatin Adverse Reaction (Verified 06/06/18 14:40) myalgias Medications Dulaglutide [Trulicity] 0.75 mg SQ FR 09/23/16 [History Confirmed 08/22/18] L.acidoph,Paracasei, B.lactis [Probiotic] 1 ea PO QHS 09/23/16 [History Confirmed 08/22/18] Sawyer-3 Fatty Acids [Fish Oil] 500 mg PO QHS 01/01/17 [History Confirmed 08/22/18] Aspirin E.C. [Ecotrin] 81 mg PO DAILY@0800 #30 tab 01/05/17 [Rx Confirmed 08/22/18] triamterene 37.5 mg-hydrochlorothiazide 25 mg capsule 1 cap PO QODAY cap 10/25/17 [History Confirmed 08/22/18] metoprolol tartrate 25 mg tablet 25 mg PO BID #180 tab 12/17/17 [Rx Confirmed 08/22/18] lisinopril 5 mg tablet 5 mg PO DAILY #30 tab 02/17/18 [Rx Confirmed 08/22/18] clopidogrel 75 mg tablet 75 mg PO DAILY #90 tab 05/30/18 [Rx Confirmed 08/22/18] cholecalciferol (vitamin D3) 2,000 unit capsule 4,000 unit PO DAILY cap 08/22/18 [History Confirmed 08/22/18] ketoconazole 2 % shampoo 1 applic TOPICAL ONCE PRN ml 08/22/18 [History Confirmed 08/22/18] metformin ER 500 mg 24 hr tablet,extended release 500 mg PO .COMPLEX tab 08/22/18 [History Confirmed 08/22/18] montelukast 10 mg tablet 10 mg PO QPM 08/22/18 [History Confirmed 08/22/18] nitroglycerin 0.4 mg sublingual tablet 0.4 mg SUBLINGUAL Q5M PRN #25 tab 08/22/18 [Rx Confirmed 08/22/18] PFSH Medical History Atherosclerotic heart disease of [place] coronary artery without angina pectoris (Chronic) TIA (transient ischemic attack) (Chronic) DM2 (diabetes mellitus, type 2) (Chronic) HTN (hypertension) (Chronic) HLD (hyperlipidemia) (Chronic) Menieres disease (Acute) Surgical History S/P angioplasty with stent (Chronic) Family History Mother Cancer pancreatic cancer Father , [place] age 20's (premature CAD), 3 vessel CABG, hyperlipidemia, CHf Myocardial infarction CAD (coronary artery disease) Brother Cancer lung cancer Social History Smoking Status: Never smoker how long ago did patient quit smokin second hand exposure: Yes alcohol intake: never substance use type: does not use caffeine: Yes Type: coffee Number of servings: 2 what type of physical activity do you participate in: none seatbelt use: always do you feel safe at home: Yes ROS Const Const: Positive for fatigue; negative for weakness, weight gain, weight loss, frequent falls or excessive sweating Eyes Eyes: Negative for change in vision, blurry vision or transient loss of vision ENT ENT: Positive for dizziness (follows with neurologist); negative for balance problems Cardio Chest Pain: No Palpitations: Yes (occasaional) feels like its: fast, skipping, pounding Edema: Bilateral (dependeent edema) Muscle aches with walking: None Resp Respiratory: Positive for SOB with activity (ambulating long distance; @ baseline); negative for SOB at rest GI GI: Negative vomiting or vomiting blood/hematemesis : Negative for hematuria Musc Musc: Positive for muscle aches/ myalgia (bilat hips and shoulders); negative for balance problems, muscle weakness or joint pain Skin Skin: Negative non-healing lesions or rash Neuro Neuro: Positive for dizziness (follows with neurologist), other (menieres in rt ear) and vertigo; negative for weakness, blurry vision, lightheadedness, frequent falls or orthostatic symptoms Skyler Hematologic/Lymphatic: Negative for easy bleeding Endo Endo: Positive for fatigue; negative for excessive sweating Psych Psych: Negative for anxiety or depression Allergy Allergy/Immunology: Negative for hives, Negative for rash Cardiology Exam Const Appearance: cooperative, healthy appearing, comfortable, no acute distress, well developed and well groomed Nutritional Appearance: average body habitus Orientation: alert, awake and oriented x3 Head Head: normal to inspection, normocephalic and atraumatic Ears: hearing grossly normal bilaterally Nose: external nose normal Face and Sinus: face symmetric Mouth: oral mucosae normal Teeth and gingiva: fair dentition Eyes Eyelids: eyelids normal Conjunctivae: conjunctivae normal Pupils: PERRL EOM: EOM intact bilaterally Neck Neck: no JVD, normal visual inspection and full ROM Carotids: normal carotid upstroke Chest Chest inspection: normal inspection of the chest, normal respiratory effort and symmetric chest movement Auscultation: Bilateral: Clear to Auscultation Cardio Rate: regular rate Rhythm: regular rhythm Heart sounds: S1 normal and S2 normal GI GI: normal to inspection, bowel sounds present and soft Neuro General: alert, awake, oriented x3 and moves all extremities Skin Skin: no rashes or lesions noted Extremities Pulses: Normal: Right Posterior Tibial Pulse, Left Posterior Tibial Pulse, Right Radial Pulse, Left Radial Pulse Lower Extremity Edema: None: Bilateral Psych Psychological: normal affect Supplemental Info Transthoracic echo cardia room: 06/30/2017 Interpretation Summary The estimated ejection fraction is 65%. Normal diastology for age. Bubble contrast study negative for right to left interatrial shunt. Trivial tricuspid valve insufficiency, Right ventricular systolic pressure estimated to be 30 mmHg. Compared to echo report dated 04/20/2017 no appreciable changes noted. Stress test: 04/20/2017 EXERCISE TOLERANCE TEST: The patient underwent pharmacologic (regadenoson) evaluation with a peak heart rate of 97 beats per minute (60% predicted maximum heart rate) and a peak blood pressure of 138/82 mmHg. The baseline ECG demonstrated normal sinus rhythm. The peak pharmacologic ECG demonstrated no obvious ECG changes. There were no obvious cardiac dysrhythmias pretest, during pharmacologic infusion, or recovery. The patient noted vague chest discomfort during recovery with spontaneous resolution. The examination was discontinued secondary to completion of protocol. IMPRESSION: 1. Pharmacologic (regadenoson) evaluation. 2. Peak pharmacologic ECG with no obvious ECG changes. 3. Nuclear images pending. MYOCARDIAL PERFUSION IMAGING STUDY: TECHNIQUE: The patient was injected with 10.9 mCi of Tc99m Cardiolite and subsequently rest SPECT Cardiolite nuclear imaging was obtained in the horizontal long, vertical long, and short axes views. The patient underwent pharmacologic (regadenoson) evaluation with a peak heart rate of 97 beats per minute (60% predicted maximal heart rate) with a peak blood pressure of 138/82 mmHg. The patient was injected with 31.1 mCi of Tc99m Cardiolite and subsequently stress SPECT Cardiolite nuclear imaging was obtained in the horizontal long, vertical long, and short axes views. A gated Cardiolite study at peak stress was obtained. INTERPRETATION: Rest and stress SPECT Cardiolite nuclear imaging demonstrates at rest a small area of subtle decreased tracer uptake near the apical segments, which appears to improve and/or normalize following stress. There are similar type findings on the resting and stress polar map images. There is end systolic thickening and brightening. The gated Cardiolite study demonstrates myocardial thickening and inward wall motion. The reported LVEF is 70%. The aforementioned findings appear compatible with the effects of shifting soft tissue attenuation/artifact with no myocardial perfusion changes considered diagnostic for associated stress-induced myocardial ischemia or previous myocardial injury/infarction. IMPRESSION: 1. Rest and stress SPECT Cardiolite nuclear imaging demonstrate myocardial perfusion changes appearing compatible with the effects of shifting soft tissue attenuation/artifact being more prominent at rest as opposed to stress with no post-stress myocardial perfusion changes appearing compatible with the effects of stress-induced myocardial ischemia or previous myocardial injury/infarction. 2. The gated Cardiolite study reports an LVEF of 70%. Cardiac catheterization: 01/04/2017: [facility], Final impression: 1. Relatively normal resting left ventricular end-diastolic pressure 2. Left ventricle: A. Normal left ventricular size, wall motion, and systolic function B. Estimated LVEF of 60% 3. Left main coronary artery: A. Large, long vessel B. Angiographically normal 4. Left anterior descending coronary artery: A. 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 Status post diagonal branch there is 85% appearing stenosis subsequently followed by 95% appearing stenosis C. Distal LAD fills late and slowly as well as receiving right to left collateral flow 5. Left circumflex coronary artery: A. Angiographically normal 6. Right coronary artery: A. Large, dominant vessel B. Angiographically normal C. Right to left collateral flow to the distal LAD lesion Cardiac catheterization/PCI: 01/06/2017 Proximal to mid LAD with a 3.0 x 24 Promus stent and 2.25 x 24 Promus stent PTCA/no stent of the ostium of diagonal branch number 2 Assessment AND Plan 1. Atherosclerosis of [place] coronary artery of [place] heart without angina pectoris I25.10 Plan At the present time the patient appears to be without acute symptoms. There is some concern of her shortness of breath dyspnea and fatigue as to whether or not this may represent underlying CAD and myocardial ischemia. Thus at the present time she will continue her current medical management. She will be asked to have a follow-up exercise tolerance test/stress nuclear imaging study to reassess her cardiovascular disease status. Based on the findings she may or may not need additional cardiac evaluation. Orders Orders: 2. S/P angioplasty with stent Z95.9 01/05/17 [facility], PCI and GUERITA to mid and proximal LAD. Plan She does have a history of previous PCI to the LAD and diagonal branch as noted above. At the moment she will continue her medical management with further evaluation as described above Orders Orders: 3. Mixed hyperlipidemia E78.2 Plan She does have a history of hyperlipidemia. She is currently off of lipid-lowering medications based on concerns of potential side effects. She is due to have her lipids checked in the near future. She was asked to provide the office a copy of those lipid labs. She is willing to retry an alternative statin. After reviewing her lipid labs consideration would be given to an alternative statin. She states her neurologist has suggested that she be considered for rosuvastatin/Crestor if need be starting at a low dose such as 5 mg a day for her cardiovascular and peripheral vascular related issues. She will take this into consideration following her lipid labs Orders Orders: 4. Essential hypertension I10 Plan Her blood pressure appears to be reasonably well controlled. Again she will continue medical management and follow-up Orders Orders: 5. Dyspnea, unspecified type R06.00 Plan Again her dyspnea is unclear whether this is related to her underlying CAD process or a non-CAD process. Thus she will continue her current medications and her evaluation as described above. Orders Orders: 6. Fatigue, unspecified type R53.83 Plan Again she gets fatigued. She states she is due for upcoming labs by her PCP which may help evaluate this. In the meantime she will undergo her cardiovascular evaluation as described above for any evidence of myocardial ischemia that would be contributing to this. Orders Orders: Plan Detail Other Medications Refilled: nitroglycerin let one tablet dissolve unde0.4 mg Sublingual Q5M PRN 25 tabs 3RF Chest r tongue for chest pain, may repeat every 5 mPain inutes if pain does not resolve for a total o f 3 tablets, if CP does not resolve call 911 Additional Comments Thank you for allowing me to participate in the care of your patient. Please don't hesitate to call if any issues arise. This note was generated using a voice recognition system and there may be incorrect words, spelling or punctuation that were not noted when reviewing the office note prior to saving. Follow Up 6 Months (PFM) Coding Level of Care Code Off vis,est,level 4 Diagnoses Atherosclerosis of [place] coronary artery of [place] heart without angina pectoris I25.10 [place] vs. transplanted heart: [place] heart S/P angioplasty with stent Z95.9 Mixed hyperlipidemia E78.2 Hyperlipidemia type: mixed hyperlipidemia Essential hypertension I10 Hypertension type: essential hypertension Dyspnea, unspecified type R06.00 Dyspnea type: unspecified Fatigue, unspecified type R53.83 Fatigue type: unspecified Coding Level of Care Code Off vis,est,level 4 Diagnoses Atherosclerosis of [place] coronary artery of [place] heart without angina pectoris I25.10 [place] vs. transplanted heart: [place] heart S/P angioplasty with stent Z95.9 Mixed hyperlipidemia E78.2 Hyperlipidemia type: mixed hyperlipidemia Essential hypertension I10 Hypertension type: essential hypertension Dyspnea, unspecified type R06.00 Dyspnea type: unspecified Fatigue, unspecified type R53.83 Fatigue type: unspecified 08/22/18 1244 <Electronically signed by Ron Gomez MD> Date Ron Gomez MD Cosigner Signature: Date (if applicable) CC: Clifton Hung MD PROGRESS Observed: 08/17/2018 Status: COMPLETED Source: [place] 12:49 PM [facility] REPOSITORY [facility] ID: [id number] Author: Seema Alicia (Pa) Service: (none) Author Type: Physician Landscape Foreman Type: Progress Notes Filed: 08/17/2018 6:45 PM Note Text: FOLLOW UP VISIT - ENDOSCOPY NAME: Dom Crowder Austin [facility] NO.: [id number] DATE OF SERVICE: 08/17/2018 : 1955 REFERRING PHYSICIAN: Clifton Hung MD Dom is a patient I am following for heme positive stool. Dr. Wiley performed upper and lower endoscopy on 08/09/18. The patient was found to have a normal colon and mild gastritis. Pathology demonstrated: FINAL DIAGNOSIS 1. Jejunum, biopsy (A) - Small intestinal mucosa with no diagnostic alteration. 2. Antrum, biopsy (B) - Antral mucosa with no diagnostic alteration. - No morphologic evidence of Helicobacter pylori. 3. Distal esophagus, biopsy (C) - Squamous mucosa with reactive epithelial changes. - Negative for intraepithelial eosinophils. 4. Mid esophagus, biopsy (D) - Squamous mucosa with no diagnostic alteration. - Negative for intraepithelial eosinophils. 5. Terminal ileum, biopsy (E) - Small intestinal mucosa with no diagnostic alteration. 6. Random colon, biopsy (F) - Colonic mucosa with no diagnostic alteration. - No morphologic evidence of microscopic colitis. /bayron 08/11/2018 ? ? The patient notes no complaints since the procedure. Last colonoscopy in 2014 showed no polyps. Per note in surgical history in Epic, prior history of hyperplastic polyps in 2005. VITALS: There were no vitals taken for this visit. General: patient is alert, cooperative, in no acute distress On examination, the abdomen is benign. Assessment IMPRESSION: s/p endoscopy for evaluation of heme positive stool, mild gastritis, normal colonoscopy PLAN: Operative findings and pathology report reviewed with patient. Discussed dietary and lifestyle modifications for the mild gastritis, could also consider short-term PPI however patient is currently asymptomatic. If the patient notes any problems or changes in bowel function, the patient should contact me immediately. Otherwise we recommend repeat colonoscopy in 10 years per current screening guidelines. Patient verbalized understanding of all above and agreed with the plan. Diagnoses: (K29.30) Chronic superficial gastritis without bleeding (primary encounter diagnosis) I spent 20 minutes in the visit, with more than 50% of the total [id number] time of the visit in counseling / coordination of care. KELLY [place] Observed: 08/17/2018 Status: COMPLETED Source: [place] 9:30 AM [facility] REPOSITORY Office Visit (GENSWS) DOM BARBA ([id number]) 1955 F Date Time Provider Department 08/17/18 9:30 AM SEEMA ALICIA) MORENITA During your visit today, we recorded the following information about you: Seema Alicia PA-C 08/17/2018 9:53 AM Signed The following instructions are important for you related to your office visit today with the [facility]. INSTRUCTIONS FOLLOWING A NORMAL COLONOSCOPY 10YR I discussed with you the findings of your colonoscopy. Since there were no worrisome abnormalities, I recommend you undergo repeat endoscopic screening every 10 years. This is the current recommendation for colon cancer screening. If you note bleeding, change in bowel habits, or other suspicious colon related symptoms before that time, those symptoms should be evaluated as necessary. And INSTRUCTIONS FOR PEPTIC ULCER DISEASE/GASTRITIS I discussed with you the findings of your upper endoscopy. Your upper endoscopy demonstrated signs of peptic ulcer disease or irritation. This can be seen as a range of issues from actual ulcers in the stomach or duodenum (first part of the small bowel) or irritation ranging from redness to more significant irritation with erosions of the stomach or duodenum. These conditions are usually caused from a combination of too much acid production or too little protective mucus production in the stomach. Factors that increase acid production include smoking and stress. If you smoke, stopping smoking will often cure these issues without needing other medications. Factors that decrease the stomach's production of protective mucus include alcohol consumption, smoking, aspirin and other anti-inflammatory use. Over the counter medications including antiacids and acid reducing medications including H2 blockers (Zantac and the like) and proton pump inhibitors (prilosec, prevacid and the like) neutralize or prevent acid production. Prescription strength proton pump inhibitors (PPIs) may be necessary if your symptoms persist. Carafate may be added to PPI treatment in refractory cases. Avoiding smoking, alcohol and antiinflammatory medications are important in the successful treatment of peptic diseases. New or worsening symptoms such are epigastric pain, burning, difficulty swallowing or food sticking should be relayed to your physician. Feeling full early after eating, or black, tarry, foul smelling stools are also worrisome. If you have any difficulties or concerns, you should contact our office immediately. If you note any additional difficulties, questions, or concerns, you should contact our office immediately @ [phone] and ask to be transferred to the General Surgery department. Seema Alicia PA-C 08/17/2018 6:45 PM Signed FOLLOW UP VISIT - ENDOSCOPY NAME: Dom Vel Barba [facility] NO.: [id number] DATE OF SERVICE: 08/17/2018 : 1955 REFERRING PHYSICIAN: Clifton Hung MD Dom is a patient I am following for heme positive stool. Dr. Wiley performed upper and lower endoscopy on 08/09/18. The patient was found to have a normal colon and mild gastritis. Pathology demonstrated: FINAL DIAGNOSIS 1. Jejunum, biopsy (A) - Small intestinal mucosa with no diagnostic alteration. 2. Antrum, biopsy (B) - Antral mucosa with no diagnostic alteration. - No morphologic evidence of Helicobacter pylori. 3. Distal esophagus, biopsy (C) - Squamous mucosa with reactive epithelial changes. - Negative for intraepithelial eosinophils. 4. Mid esophagus, biopsy (D) - Squamous mucosa with no diagnostic alteration. - Negative for intraepithelial eosinophils. 5. Terminal ileum, biopsy (E) - Small intestinal mucosa with no diagnostic alteration. 6. Random colon, biopsy (F) - Colonic mucosa with no diagnostic alteration. - No morphologic evidence of microscopic colitis. /bayron 08/11/2018 ? ? The patient notes no complaints since the procedure. Last colonoscopy in 2014 showed no polyps. Per note in surgical history in Epic, prior history of hyperplastic polyps in 2005. VITALS: There were no vitals taken for this visit. General: patient is alert, cooperative, in no acute distress On examination, the abdomen is benign. Assessment IMPRESSION: s/p endoscopy for evaluation of heme positive stool, mild gastritis, normal colonoscopy PLAN: Operative findings and pathology report reviewed with patient. Discussed dietary and lifestyle modifications for the mild gastritis, could also consider short-term PPI however patient is currently asymptomatic. If the patient notes any problems or changes in bowel function, the patient should contact me immediately. Otherwise we recommend repeat colonoscopy in 10 years per current screening guidelines. Patient verbalized understanding of all above and agreed with the plan. Diagnoses: (K29.30) Chronic superficial gastritis without bleeding (primary encounter diagnosis) I spent 20 minutes in the visit, with more than 50% of the total [id number] time of the visit in counseling / coordination of care. Seema Alicia PA-C Referring Provider: CLIFTON HUNG [[id number]] Allergies As of Date: 08/17/2018 Noted Allergy Reaction BRILINTA (TICAGRELOR) 06/28/2017 12 - Shortness of Breath KEFLEX (CEPHALEXIN) 02/02/2006 Comments: facial flushing LIPITOR (ATORVASTATIN) 07/21/2013 14 - Other: See Comments Comments: myalgia LISINOPRIL 07/21/2013 3 - Cough LOVASTATIN 07/21/2013 14 - Other: See Comments Comments: myalgia NORCO (HYDROCODONE-ACETAMINOPHEN) 10/29/2016 9 - Itching Date Reviewed: 08/17/2018 Reviewed by: Seema Mccartney) - Fully Assessed Reason for Visit: Post Op [174] Cmt: post op EGD/ Colonoscopy Primary Visit Diagnosis:Chronic superficial gastritis without bleeding [K29.30] Prescriptions as of 08/17/2018 Sig: MONTELUKAST 10 MG TABLET Take 10 mg by mouth daily at * DOXYCYCLINE HYCLATE 50 MG TAB* Take by mouth. METFORMIN 500 MG TABLET TAKE ONE TABLET BY MOUTH AFTE* TRULICITY 0.75 MG/0.5 ML SUBC* INJECT 0.75 MG SUBCUTANEOUSLY* KETOCONAZOLE 2 % SHAMPOO Apply 1 application to affect* TRIAMTERENE 37.5 MG-HYDROCHLO* Take 1 capsule by mouth once * METOPROLOL SUCCINATE ER 25 MG* Take 1 tablet by mouth twice * ASPIRIN 81 MG CHEWABLE TABLET Take 1 tablet by mouth once d* CLOPIDOGREL 75 MG TABLET Take 1 tablet by mouth once d* LISINOPRIL 5 MG TABLET Take 1 tablet by mouth once d* NITROGLYCERIN 0.4 MG SUBLINGU* Dissolve 1 tablet under the t* CHOLECALCIFEROL (VITAMIN D3) * Take 1 capsule by mouth once * MULTIVITAMIN ORAL Take by mouth. OMEGA-3 FATTY ACIDS-VITAMIN E* Take 1 capsule by mouth once * PROBIOTIC ORAL Take 1 tablet by mouth once d* * CPAP Problem List As Of Date 08/17/2018 Noted Resolved Mixed hyperlipidemia [E78.2] INVALID FOR* Priority: A More... Obstructive sleep apnea on CPAP [G47.33, Z99.89] Priority: B More... Scalp itch [L29.9] Priority: D Seasonal allergies [J30.2] Priority: B More... History of depression [Z86.59] Priority: B More... More... Arthritis [M19.90] Priority: M More... Rosacea [L71.9] Priority: D More... History of hyperparathyroidism [Z86.39] Priority: B More... 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 Diabetic eye exam (HCC) [Z01.00, E11.9] INVALID FOR* Priority: A More... Well adult exam [Z00.00] INVALID FOR* Priority: E More... Colon cancer screening [Z12.11] INVALID FOR* Controlled type 2 diabetes mellitus without com*INVALID FOR* Priority: A Atherosclerosis of [place] coronary artery with *INVALID FOR* Priority: A More... S/P angioplasty with stent [Z95.9] INVALID FOR* Priority: A More... Meniere disease, right [H81.01] INVALID FOR* Priority: B History of transient ischemic attack (TIA) [Z86*INVALID FOR* Priority: A More... Garibay's cyst of knee, left [M71.22] INVALID FOR* Priority: M Other instructions from your clinician: The following instructions are important for you related to your office visit today with the [facility]. INSTRUCTIONS FOLLOWING A NORMAL COLONOSCOPY 10YR I discussed with you the findings of your colonoscopy. Since there were no worrisome abnormalities, I recommend you undergo repeat endoscopic screening every 10 years. This is the current recommendation for colon cancer screening. If you note bleeding, change in bowel habits, or other suspicious colon related symptoms before that time, those symptoms should be evaluated as necessary. And INSTRUCTIONS FOR PEPTIC ULCER DISEASE/GASTRITIS I discussed with you the findings of your upper endoscopy. Your upper endoscopy demonstrated signs of peptic ulcer disease or irritation. This can be seen as a range of issues from actual ulcers in the stomach or duodenum (first part of the small bowel) or irritation ranging from redness to more significant irritation with erosions of the stomach or duodenum. These conditions are usually caused from a combination of too much acid production or too little protective mucus production in the stomach. Factors that increase acid production include smoking and stress. If you smoke, stopping smoking will often cure these issues without needing other medications. Factors that decrease the stomach's production of protective mucus include alcohol consumption, smoking, aspirin and other anti-inflammatory use. Over the counter medications including antiacids and acid reducing medications including H2 blockers (Zantac and the like) and proton pump inhibitors (prilosec, prevacid and the like) neutralize or prevent acid production. Prescription strength proton pump inhibitors (PPIs) may be necessary if your symptoms persist. Carafate may be added to PPI treatment in refractory cases. Avoiding smoking, alcohol and antiinflammatory medications are important in the successful treatment of peptic diseases. New or worsening symptoms such are epigastric pain, burning, difficulty swallowing or food sticking should be relayed to your physician. Feeling full early after eating, or black, tarry, foul smelling stools are also worrisome. If you have any difficulties or concerns, you should contact our office immediately. If you note any additional difficulties, questions, or concerns, you should contact our office immediately @ [phone] and ask to be transferred to the General Surgery department. Encounter Status:Closed by SEEMA ALICIA PA-C on 08/17/18 LULI Observed: 08/09/2018 Status: COMPLETED Source: [place] 5:30 PM [facility] REPOSITORY Office Visit (GASEWS) DOM BARBA ([id number]) 1955 F Date Time Provider Department 08/09/18 5:30 PM [place] [address] ENDOSCOPY [facility] During your visit today, we recorded the following information about you: Compressed Gas Tester: Surgical/Procedural Record ID: [id number] 08/09/2018 12:00 AM Author: MIKO MCFARLANE Signed by DENYS PROVIDER on 08/10/2018 at 12:50 PM Document text: Display document [id number] only Referring Provider: SEEMA ALICIA) [[id number]] Allergies As of Date: 08/09/2018 Noted Allergy Reaction BRILINTA (TICAGRELOR) 06/28/2017 12 - Shortness of Breath KEFLEX (CEPHALEXIN) 02/02/2006 Comments: facial flushing LIPITOR (ATORVASTATIN) 07/21/2013 14 - Other: See Comments Comments: myalgia LISINOPRIL 07/21/2013 3 - Cough LOVASTATIN 07/21/2013 14 - Other: See Comments Comments: myalgia NORCO (HYDROCODONE-ACETAMINOPHEN) 10/29/2016 9 - Itching Date Reviewed: 08/09/2018 Reviewed by: Victoria Cortez (Rn) AGNES Herndon - Fully Assessed Primary Visit Diagnosis:Screening for colon cancer [Z12.11] Prescriptions as of 08/09/2018 Sig: MONTELUKAST 10 MG TABLET Take 10 mg by mouth daily at * DOXYCYCLINE HYCLATE 50 MG TAB* Take by mouth. METFORMIN 500 MG TABLET TAKE ONE TABLET BY MOUTH AFTE* TRULICITY 0.75 MG/0.5 ML SUBC* INJECT 0.75 MG SUBCUTANEOUSLY* KETOCONAZOLE 2 % SHAMPOO Apply 1 application to affect* TRIAMTERENE 37.5 MG-HYDROCHLO* Take 1 capsule by mouth once * METOPROLOL SUCCINATE ER 25 MG* Take 1 tablet by mouth twice * ASPIRIN 81 MG CHEWABLE TABLET Take 1 tablet by mouth once d* CLOPIDOGREL 75 MG TABLET Take 1 tablet by mouth once d* LISINOPRIL 5 MG TABLET Take 1 tablet by mouth once d* NITROGLYCERIN 0.4 MG SUBLINGU* Dissolve 1 tablet under the t* CHOLECALCIFEROL (VITAMIN D3) * Take 1 capsule by mouth once * MULTIVITAMIN ORAL Take by mouth. OMEGA-3 FATTY ACIDS-VITAMIN E* Take 1 capsule by mouth once * PROBIOTIC ORAL Take 1 tablet by mouth once d* * CPAP Problem List As Of Date 08/09/2018 Noted Resolved Mixed hyperlipidemia [E78.2] INVALID FOR* Priority: A More... Obstructive sleep apnea on CPAP [G47.33, Z99.89] Priority: B More... Scalp itch [L29.9] Priority: D Seasonal allergies [J30.2] Priority: B More... History of depression [Z86.59] Priority: B More... More... Arthritis [M19.90] Priority: M More... Rosacea [L71.9] Priority: D More... History of hyperparathyroidism [Z86.39] Priority: B More... 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 Diabetic eye exam (HCC) [Z01.00, E11.9] INVALID FOR* Priority: A More... Well adult exam [Z00.00] INVALID FOR* Priority: E More... Colon cancer screening [Z12.11] INVALID FOR* Controlled type 2 diabetes mellitus without com*INVALID FOR* Priority: A Atherosclerosis of [place] coronary artery with *INVALID FOR* Priority: A More... S/P angioplasty with stent [Z95.9] INVALID FOR* Priority: A More... Meniere disease, right [H81.01] INVALID FOR* Priority: B History of transient ischemic attack (TIA) [Z86*INVALID FOR* Priority: A More... Garibay's cyst of knee, left [M71.22] INVALID FOR* Priority: M Encounter Status:Closed by DANIEL QUINTANA CMA on 08/17/18 NURSING PROG Observed: 08/09/2018 Status: COMPLETED Source: [place] 11:43 AM [facility] REPOSITORY HNO ID: [id number] Author: Victoria Cortez (Rn) AGNES Herndon Service: Nursing Author Type: Registered Nurse Type: Nursing Progress Note Filed: 08/09/2018 11:44 AM Note Text: Patient did not experience a fall prior to discharge. Patient did not experience a burn prior to discharge. Victoria Herndon, AGNES PT ED Observed: 08/09/2018 Status: COMPLETED Source: [place] 11:21 AM [facility] REPOSITORY HNO ID: [id number] Author: Victoria AlvarezRnMamie Herndon RN Service: Nursing Author Type: Registered Nurse Type: Patient Education Filed: 08/09/2018 11:21 AM Note Text: POST OP LEARNING RESPONSE INSTRUCTION PROVIDED TO: Patient and Spouse METHOD OF INSTRUCTION: Written instruction - handouts Verbal instruction PATIENT / FAMILY RESPONSE: Verbalizes understanding of: INFECTION MANAGEMENT-Signs and symptoms of an infection and importance of contacting the physician PHYSICAL RESTRICTIONS-Physical restrictions and recommendations after discharge from the hospital POST-PROCEDURE INSTRUCTIONS-Correct actions to take to reduce post procedure complications PATIENT SAFETY PRINCIPLES WORSENING CONDITION-Signs and symptoms of a worsening condition that warrant a call to the physician FOLLOW-UP PLAN: Patient instructed to call with any further issues Follow up phone call. SUPPLEMENTAL MATERIAL: Procedure discharge instructions REFERRAL (RECOMMENDATION): None Electronically Signed By: Victoria Herndon RN In Department: AMBULATORY SURGERY NURSING PROG Observed: 08/09/2018 Status: COMPLETED Source: [place] 11:14 AM [facility] REPOSITORY HNO ID: [id number] Author: Victoria Herndon RN Service: Nursing Author Type: Registered Nurse Type: Nursing Progress Note Filed: 08/09/2018 11:19 AM Note Text: Dr. Wiley at bedside with patient and patient's spouse. Procedures discussed, and questions answered. Victoria Herndon RN NURSING PROG Observed: 08/09/2018 Status: COMPLETED Source: [place] 11:00 AM [facility] REPOSITORY HNO ID: [id number] Author: Lory Montgomery RN Service: Nursing Author Type: Registered Nurse Type: Nursing Progress Note Filed: 08/09/2018 11:00 AM Note Text: Patient did not experience a fall within the Intraoperative area. Patient did not experience a burn within the Intraoperative area. Lory Montgomery RN NURSING PROG Observed: 08/09/2018 Status: COMPLETED Source: [place] 10:26 AM [facility] REPOSITORY HNO ID: [id number] Author: Lakesha AlvarezRnMamie Drew RN Service: (none) Author Type: Registered Nurse Type: Nursing Progress Note Filed: 08/09/2018 11:40 AM Note Text: Patient did not experience a fall within the Preoperative area. Patient did not experience a burn within the Preoperative area. [facility] PRE-OP NURSING HAND OFF NOTE SBAR Hand off given to Lory Montgomery RN. Hand off was communicated verbally and at the patient's bedside and all questions were answered. AGNES Blount RN PT ED Observed: 08/09/2018 Status: COMPLETED Source: [place] 9:07 AM [facility] REPOSITORY HNO ID: [id number] Author: Lakesha Drew RN Service: (none) Author Type: Registered Nurse Type: Patient Education Filed: 08/09/2018 9:15 AM Note Text: PRE OP LEARNING ASSESSMENT PROCEDURE/SURGERY: GI PROCEDURES: Colonoscopy and EGD READINESS TO LEARN COGNITIVE ABILITY: Alert and oriented MOTIVATION TO LEARN: Eager Interested FAMILY SUPPORT: High - Very involved in pt care PATIENT LEARNS BEST BY: Individual Instruction Written Instruction - Hand-outs Verbal Instruction Multiple Methods FACTORS AFFECTING LEARNING: None PHYSICAL LIMITATIONS AFFECTING LEARNING: None Electronically Signed By: Lakesha Drew RN In Department: AMBULATORY SURGERY HISTORY PHYSICAL Observed: 08/09/2018 Status: COMPLETED Source: [place] 8:56 AM [facility] REPOSITORY HNO ID: [id number] Author: Augustine Wiley Service: General Surgery Author Type: Physician Type: HANDP Filed: 08/09/2018 8:56 AM Note Text: HISTORY AND PHYSICAL ? Dom K Austin 1955 ? REFERRING PHYSICIAN: Clifton Hung MD ? CHIEF COMPLAINT: Consult (consult EGD) ? HPI: The patient is a 63 year old female referred for endoscopy. Per my HANDP from July 2017: ? ?The patient is a 61 year old female referred for endoscopy. ?Dom notes no colon complaints. ?She denies any change in bowel habits, weight changes, blood in stools, black tarry stools or abdominal pain. ?She denies any family history of colon issues. ?The patient ?notes no history of upper GI complaints. ??Dom has undergone prior endoscopy, most recently in 2014 with 3-5 year follow-up recommended. ?The patient recently underwent routine health maintenance including hemoccult card which was positive for occult blood. ?She has been referred to discuss endoscopy. ? Of note, patient was recently hospitalized following a transient ischemic attack. ?She has been evaluated by primary care but has not yet seen a neurologist. ?She is currently maintained on Plavix and aspirin. ? ? The patient is being seen by me today at the request of Dr. Hung?for my opinion and advice regarding heme positive stool. ? ?In light of the recent TIA, recommendation following discussion with surgeon at that time was to wait at least 3-4 months to perform procedure after patient was seen by neurology. Patient had not returned to our office until today's visit. She notes she has had no further TIA symptoms. She was diagnosed with shingles on her scalp in June, was treated for this and feeling much better with no complaints currently. Other significant medical history includes hypertension, hyperlipidemia, coronary atherosclerosis, s/p angioplasty with stent, obstructive sleep apnea, type II diabetes mellitus. Patient denies any chest pain or shortness of breath. Denies problems with sedation in the past. ? PAST MEDICAL HISTORY PAST MEDICAL HISTORY Diagnosis Date - Amaurosis fugax 10/29/2017 ? TIA; right visual disturbance 06/2017 - Arthritis ? ? tendonitis, arthritis - Atherosclerosis of [place] coronary artery with stable angina pectoris (HCC) 01/09/2017 ? Seeing Dr. Gomez - Garibay's cyst of knee, left 03/02/2018 - Colon polyp 2011 - Diabetes mellitus type 2, controlled, without complications ([facility]) ? - Essential hypertension 01/16/2016 - Female pattern hair loss ? - History of depression ? ? when - History of hyperparathyroidism ? - Mixed hyperlipidemia 05/31/2009 ? statin intolerance - Obstructive sleep apnea on CPAP ? ? Sibilia - Psoriasis ? - Rosacea ? ? with ocular symptoms - S/P angioplasty with stent 01/09/2017 ? stents to mid and proximal left anterior descending Art, and angio of ostium of #2 diagonal - Scalp itch ? - Seasonal allergies ? ? Dr [place] - TIA (transient ischemic attack) 06/2017 - Vitamin D deficiency 2012 ? ? PAST SURGICAL HISTORY PAST SURGICAL HISTORY Procedure Laterality Date - 2D ECHO (EXEP) ? 06/30/2017 ? EF=65%, trivial [place], TI and 1+ PI Unchanged from 04/2017 - BUNIONECTOMY, LAPIDUS-TYPE ? 2009 ? left great toe - DELIVERY ONLY ? ? - COLONOSCOPY ? 08/07/15 ? no polyps, recheck 3-5 yrs - COLONOSCOPY AND POLYPECTOMY ? 10/12, 10/13 ? Dr Barba; hyperplastic polyps - HEART CATHETERIZATION ? 2004 ? heart cath-normal per patient - HEART CATHETERIZATION ? 01/04/2017 ? EF=60%, left anterior desending septal perferator 95-99% stenosis and diagonal branch 85% stenosis, - LOW BACK DISK SURGERY ? 2009 ? microdecompression L4 L5 - PAST SURGICAL HISTORY OF ? 2004 ? parathyroidectomy x1 - PAST SURGICAL HISTORY OF ? ? ? lipoma x2 - PAST SURGICAL HISTORY OF ? 10/13 ? left foot surgery (bone cyst in heel, removed) - PAST SURGICAL HISTORY OF ? 2014 ? bilateral carpel tunnel - PAST SURGICAL HISTORY OF Right 10/2016 ? trigger finger release x2 - REMOVAL GALLBLADDER ? 2004 ? Cholecystectomy - STENT PLACEMENT ? 01/06/2017 ? stents to mid and proximal left anterior descending Art, and angio of ostium of #2 diagonal - STRESS TEST ? 04/20/2017 ? WNL - TOTAL ABDOM HYSTERECTOMY ? 1995 ? LEDA for benign fibroid, ovaries intact ? ? ? CURRENT MEDICATIONS ? Current Outpatient Prescriptions: montelukast (SINGULAIR) 10 mg tablet Take 10 mg by mouth daily at bedtime. doxycycline hyclate 50 mg tab Take by mouth. metFORMIN (GLUCOPHAGE) 500 mg tablet TAKE ONE TABLET BY MOUTH AFTER BREAKFAST AND TWO TABLETS AFTER DINNER TRULICITY 0.75 mg/0.5 mL pnij INJECT 0.75 MG SUBCUTANEOUSLY ONCE EACH WEEK atorvastatin (LIPITOR) 40 mg tablet Take 1 tablet by mouth daily at bedtime. For cholesterol. ketoconazole (NIZORAL) 2 % shampoo Apply 1 application to affected area once daily as needed. triamterene-hydrochlorothiazide 37.5-25 mg per capsule Take 1 capsule by mouth once daily. By. Dr. Pompa metoprolol succinate ER (TOPROL XL) 25 mg 24 hr tablet Take 1 tablet by mouth twice daily. Per Dr. Gomez aspirin 81 mg chewable tablet Take 1 tablet by mouth once daily. clopidogrel (PLAVIX) 75 mg tablet Take 1 tablet by mouth once daily. lisinopril (ZESTRIL, PRINIVIL) 5 mg tablet Take 1 tablet by mouth once daily. nitroglycerin sublingual (NITROQUICK) 0.4 mg SL tablet Dissolve 1 tablet under the tongue every 5 minutes as needed for Chest Pain. cholecalciferol, vitamin D3, (VITAMIN D3) 4,000 unit cap Take 1 capsule by mouth once daily. MULTIVITAMIN ORAL Take by mouth. Sawyer-3 Fatty Acids-Vitamin E (FISH OIL) 1,000 mg cap Take 1 capsule by mouth once daily. LACTOBACILLUS ACIDOPHILUS (PROBIOTIC ORAL) Take 1 tablet by mouth once daily. CPAP ? ? No current facility-administered medications for this visit. ? ALLERGIES: Brilinta [Ticagrelor]; Keflex [Cephalexin]; Lipitor [Atorvastatin]; Lisinopril; Lovastatin; [place] [Hydrocodone-Acetaminophen] ? PERSONAL HISTORY: SOCIAL HISTORY Social History Marital status: Spouse name: Kisha Years of education: 14 Number of children: 3 ? Occupational History Occupation Employer Comment [employer] ? Social History Main Topics Smoking status: Former Smoker Packs/day: 1.50 Years: 3.00 Types: Cigarettes Quit date: 11/08/1994 Smokeless tobacco: Never Used Comment: smoked 3 years in mid Alcohol use: No Drug use: No Sexual activity: Yes Partners with: Male ? Social History Narrative 3 children. 06/2011. 1st child suicide at 15. Remarried. ? ? FAMILY HISTORY: FAMILY HISTORY FAMILY HISTORY Problem Relation Age of Onset - other (Pancreatic cancer) Mother ? - Coronary Artery Disease Father 25 ? [place] @ 25. CABG - Diabetes Paternal Grandmother ? - Diabetes Maternal Grandfather ? - other (Lung cancer) Brother ? - other (suicide) Son ? ? may of been depression ? ? REVIEW OF SYMPTOMS: The review of systems data was entered by the nurse and reviewed by me ? Nursing Notes: Cristobal Al LPN 07/21/2018 8:25 AM Signed REVIEW OF SYSTEMS: ?General:???The patient denies fatigue, denies weight loss, denies weight gain, denies feeling hot, and denies feelings of cold. ?Eyes: ?The patient denies glaucoma, denies eye injury/surgery, wears glasses or contacts. ?Ear/Nose/Throat: ?The patient NOTES allergies, NOTES hayfever, denies ear infections, and denies bloody noses. ?Cardiovascular: ?The patient denies chest pain, denies heart disease, NOTES high blood pressure,NOTES cardiac stent, denies prior heart attack, denies irregular heart beat, NOTES high cholesterol, ?denies poor circulation, denies heart failure, other cardiac issues, denies claudication, denies cold feet, denies peripheral arterial stent. ?Respiratory: ?The patient denies tuberculosis, NOTES pneumonia, denies frequent cough, denies pulmonary embolism, NOTES shortness of breath, and denies coughing up blood. ?Gastrointestinal: ?The patient denies difficulty swallowing, denies acid reflux, denies ulcers, denies vomiting, denies jaundice/hepatitis, denies gallbladder problems, denies black or tarry stools, NOTES hemorrhoids, denies bleeding from rectum, denies diverticulitis, NOTES constipation, denies diarrhea, denies loss of stool control, and denies hernias. ?Kidney/Bladder: ?The patient denies kidney stones, denies urine infections, and denies bloody urine. ?Skin: ?The patient denies a history of skin cancer, denies bleeding/changing moles, and denies a history of skin rash. ?Neurologic: ?The patient denies a history of epilepsy/convulsions, denies headaches, denies head/spinal injuries, and NOTES stroke/TIA. ?Psychiatric: ?The patient denies psychiatric medications, denies depression, and denies voices, denies substance abuse. ?Endocrine: ?The patient denies thyroid disorders, denies diabetes, and denies hormonal problems. ?Hematologic: ?The patient denies a history of bruising, denies bleeding, and denies anemia, denies blood clots. ?Infections: ?The patient NOTES a history of measles and mumps, denies rheumatic fever, and denies sexually transmitted diseases. ?Musculoskeletal: ?The patient NOTES back pain/injury, denies back problems, NOTES sciatica, NOTES knee/foot trouble, NOTES arthritis, or denies gout. I have confirmed and edited as necessary, the PFSH and ROS obtained by others. ? PHYSICAL EXAMINATION: ? General: The patient is 63 year old female, well nourished, well hydrated in no acute distress. The patient is oriented to time, place, and person. ? VITALS: Blood pressure 132/68, pulse 80. There is no height or weight on file to calculate BMI. ? HEENT: Normal cephalic, ataumatic, pupils are equally round, sclera are anicteric, mucous membranes are moist, oropharynx is clear. Neck has no masses, asymmetry or lymphadenopathy. ? Respiratory: Clear to auscultation and percussion. Normal respiratory excursion and pattern. ? Cardiac: Examination is regular rate and rhythm. Normal S1/S2 ? Abdominal exam: Soft, nontender, with no palpable masses. No hepatosplenomegaly. No palpable hernias. ? Rectal exam: exam deferred ? Extremities: no clubbing, cyanosis or edema. No adenopathy. ? Other: ? LABORATORY VALUES: As Noted ? RADIOLOGIC STUDIES: As Noted ? Assessment IMPRESSION: heme positive stool, recommend EGD/colonoscopy ? PLAN: We will plan for upper and lower endoscopy. We discussed the risks and benefits of the planned endoscopy. I have informed the patient that complications can occur including failure to complete the endoscopy and perforation. The patient had the opportunity to ask questions concerning the planned endoscopy. My staff has also explained the procedure to the patient in understandable terms and has given the patient printed material concerning the procedure. The patient freely consents to surgery. ? I plan to use golytely bowel preparation for endoscopy ? Patient may remain on her anticoagulation for the endoscopy as Dr. Wiley does not require this to be held ? She has been instructed to follow up with her PCP for instructions regarding her diabetic medications for the procedure ? Patient verbalized understanding of all above and agreed with the plan ? Diagnoses: (R19.5) Heme positive stool (primary encounter diagnosis) ? My findings have been communicated to Dr. Hung via shared medical record. This note will be forwarded to Dr. Clifton Hung MD. Return to Clinic: The patient is instructed to follow-up with me 1 week post operatively. ? I spent 30 minutes in the visit, with more than 50% of the total ifpt-hn-sahg time of the visit in counseling / coordination of care. ? Seema Alicia PA-C SURGICAL PATHOLOGY Observed: 08/09/2018 Status: F Source: [place] 12:00 AM [facility] REPOSITORY Specimen originated from [facility] Specimen #: [id number] Submitting Physician: AUGUSTINE WILEY ([id number]) FINAL DIAGNOSIS 1. Jejunum, biopsy (A) - Small intestinal mucosa with no diagnostic alteration. 2. Antrum, biopsy (B) - Antral mucosa with no diagnostic alteration. - No morphologic evidence of Helicobacter pylori. 3. Distal esophagus, biopsy (C) - Squamous mucosa with reactive epithelial changes. - Negative for intraepithelial eosinophils. 4. Mid esophagus, biopsy (D) - Squamous mucosa with no diagnostic alteration. - Negative for intraepithelial eosinophils. 5. Terminal ileum, biopsy (E) - Small intestinal mucosa with no diagnostic alteration. 6. Random colon, biopsy (F) - Colonic mucosa with no diagnostic alteration. - No morphologic evidence of microscopic colitis. SR/kr 08/11/2018 Jared Umaña MD, Ph.D. (Electronic Signature) SPECIMEN SUBMITTED A: JEJUNUM, BIOPSY B: ANTRUM, BIOPSY H/H C: DISTAL ESOPHAGUS, BIOPSY D: MID ESOPHAGUS, BIOPSY E: TERMINAL ILEUM, BIOPSY F: RANDOM COLON, BIOPSY CLINICAL DATA R19.5, K21.9, Z86.010 GROSS DESCRIPTION A. Received in formalin is one piece of jaramillo, soft tissue measuring 0.3 x 0.2 x 0.2 cm. Totally submitted in one cassette. B. Received in formalin is one piece of jaramillo, soft tissue measuring 0.2 x 0.2 x 0.2 cm. Totally submitted in one cassette. C. Received in formalin is one piece of jaramillo, soft tissue measuring 0.3 x 0.2 x 0.1 cm. Totally submitted in one cassette. D. Received in formalin are two pieces of jaramillo, soft tissue aggregating to 0.4 x 0.2 x 0.1 cm. Totally submitted in one cassette. E. Received in formalin is one piece of jaramillo, soft tissue measuring 0.2 x 0.2 x 0.2 cm. Totally submitted in one cassette. F. Received in formalin are two pieces of jaramillo, soft tissue aggregating to 0.7 x 0.2 x 0.1 cm. Totally submitted in one cassette. Gross examination performed at [facility], [address] [place] [address] MMD 08/10/2018 2:46:16 AM Date of Report: 08/11/2018 Date of Procedure: 08/09/2018 Date of Receipt: 08/09/2018 Submitted by: AUGUSTINE WILEY ([id number]) Location: [id number] Diagnostic interpretation performed at [facility], [address] [place] [address]. PROGRESS Observed: 08/02/2018 Status: COMPLETED Source: [place] 7:52 AM [facility] REPOSITORY HNO ID: [id number] Author: Corine Darling Service: (none) Author Type: Physician Type: Progress Notes Filed: 08/02/2018 9:09 AM Note Text: [facility] Initial Office Visit Consultation is requested by: Clifton Hung MD [address] [place] [id number] PCP: Clifton Hung MD [address] [place], [place] [id number] CEREBROVASCULAR HISTORY History of Recent Event: Dom Barba is a 63 year old female who presents for evaluation of TIA. Reason for visit: evaluation - PCP recommended follow up with stroke drChey Date of last event: Jun 2017 History of event: onset vision loss R eye lasting about 20 minutes. Also reports feeling not right having difficulty focusing, using computer. Taken to local hospital [facility] in [facility] sent her to [facility] Antiplatelet, Anticoalulant, Statin: Aspirin and Clopidogrel Side effects : Yes- work up in progress for Heme positive stool. Has tried Atorvastatin and Pravastatin - both caused myalgias Refills needed: No Residual deficits: No residual deficits PT/OT/ST: No therapy needs Disposition: Home Next phase of care: Not Applicable Interval history: No new stroke symptoms. Will have occasional dizziness - mostly noted with position changes. Difficulty with vision - (focusing) when she is fatigued. Plavix is currently on hold since Wednesday in prep for upper and lower GI. Questions for visit: explain what the imaging report means Staff Intake: *Reviewed above and agree with notation. See below for confirmation/additional information* ? *TIA 06/29/2017 --Though in some notes, mention of R eye disturbance or amaurosis fugax, pt tells me that it wasn't that she couldn't see out of her R eye, but while she was at work, she could not see the entire R half of one of her coworkers - this is more c/w R HH; she also states that she was having a hard time understanding what people were saying to her and could not input words into the computer though she was able to speak which fits with potential receptive aphasia. She does also mention that one side of her was numb, but could not remember which. Taking all of this into account, localization would fit with inferior division MCA TIA/stroke. --Taken to [place] where MRI/A showed some chronic small vessel disease (most notable L frontal region on my review), but no stroke, no LVO --Improved back to baseline within hours and was Dc'd home with no residual deficits --Kept on DAPT (was on for CAD with PCI 12/2016) --TTE 65% EF with no shunting or LA dilation --No current issues or complaints, just never f/u with neuro, so here today for check *Menieres --Hearing loss R>L and vertigo; has improved a great deal with HCTZ *HPL --LDL in 02/2018 was 63, so well controlled despite statin intolerance (myalgias with atorva and lova); see below for thoughts *DM --Most recent A1c 6.8 *SEBAS --Uses CPAP regularly ? *H/o Shingles 2016 --Improved with valacyclovir --Does noticed intermittent R occipital tenderness and pain - likely lymph node PAST MEDICAL HISTORY Diagnosis Date - Amaurosis fugax 10/29/2017 TIA; right visual disturbance 06/2017 - Arthritis tendonitis, arthritis - Atherosclerosis of [place] coronary artery with stable angina pectoris (HCC) 01/09/[address] Gomez - Garibay's cyst of knee, left 03/02/2018 - Colon polyp 2011 - Diabetes mellitus type 2, controlled, without complications (HCC) - Essential hypertension 01/16/2016 - Female pattern hair loss - History of depression when - History of hyperparathyroidism - Mixed hyperlipidemia 05/31/2009 statin intolerance - Obstructive sleep apnea on CPAP Sibilia - Psoriasis - Rosacea with ocular symptoms - S/P angioplasty with stent 01/09/2017 stents to mid and proximal left anterior descending Art, and angio of ostium of #2 diagonal - Scalp itch - Seasonal allergies Dr Pompa - TIA (transient ischemic attack) 06/2017 - Vitamin D deficiency 2012 PAST SURGICAL HISTORY Procedure Laterality Date - 2D ECHO (EXEP) 06/30/2017 EF=65%, trivial [place], TI and 1+ PI Unchanged from 04/2017 - BUNIONECTOMY, LAPIDUS-TYPE 2010 left great toe - DELIVERY ONLY - COLONOSCOPY 08/07/15 no polyps, recheck 3-5 yrs - COLONOSCOPY AND POLYPECTOMY 10/12, 10/13 Dr Barba; hyperplastic polyps - HEART CATHETERIZATION 2004 heart cath-normal per patient - HEART CATHETERIZATION 01/04/2017 EF=60%, left anterior desending septal perferator 95-99% stenosis and diagonal branch 85% stenosis, - LOW BACK DISK SURGERY 2009 microdecompression L4 L5 - PAST SURGICAL HISTORY OF 2004 parathyroidectomy x1 - PAST SURGICAL HISTORY OF lipoma x2 - PAST SURGICAL HISTORY OF 10/13 left foot surgery (bone cyst in heel, removed) - PAST SURGICAL HISTORY OF 2014 bilateral carpel tunnel - PAST SURGICAL HISTORY OF Right 10/2016 trigger finger release x2 - REMOVAL GALLBLADDER 2004 Cholecystectomy - STENT PLACEMENT 01/06/2017 stents to mid and proximal left anterior descending Art, and angio of ostium of #2 diagonal - STRESS TEST 04/20/2017 WNL - TOTAL ABDOM HYSTERECTOMY 1995 LEDA for benign fibroid, ovaries intact FAMILY HISTORY Problem Relation Age of Onset - other (Pancreatic cancer) Mother - Coronary Artery Disease Father 25 [place] @ 25. CABG - Diabetes Paternal Grandmother - Diabetes Maternal Grandfather - other (Lung cancer) Brother - other (suicide) Son may of been depression Social History Marital status: Spouse name: Kisha Years of education: 14 Number of children: 3 Occupational History Occupation Employer [employer] Social History Main Topics Smoking status: Former Smoker Packs/day: 1.50 Years: 3.00 Types: Cigarettes Quit date: 11/08/1994 Smokeless tobacco: Never Used Comment: smoked 3 years in mid 90s Alcohol use: No Drug use: No Sexual activity: Yes Partners with: Male Social History Narrative 3 children. 06/2011. 1st child suicide at 17. Remarried. Current Outpatient Prescriptions: montelukast (SINGULAIR) 10 mg tablet Take 10 mg by mouth daily at bedtime. doxycycline hyclate 50 mg tab Take by mouth. metFORMIN (GLUCOPHAGE) 500 mg tablet TAKE ONE TABLET BY MOUTH AFTER BREAKFAST AND TWO TABLETS AFTER DINNER TRULICITY 0.75 mg/0.5 mL pnij INJECT 0.75 MG SUBCUTANEOUSLY ONCE EACH WEEK ketoconazole (NIZORAL) 2 % shampoo Apply 1 application to affected area once daily as needed. triamterene-hydrochlorothiazide 37.5-25 mg per capsule Take 1 capsule by mouth once daily. By. Dr. Pompa metoprolol succinate ER (TOPROL XL) 25 mg 24 hr tablet Take 1 tablet by mouth twice daily. Per Dr. Gomez aspirin 81 mg chewable tablet Take 1 tablet by mouth once daily. clopidogrel (PLAVIX) 75 mg tablet Take 1 tablet by mouth once daily. lisinopril (ZESTRIL, PRINIVIL) 5 mg tablet Take 1 tablet by mouth once daily. nitroglycerin sublingual (NITROQUICK) 0.4 mg SL tablet Dissolve 1 tablet under the tongue every 5 minutes as needed for Chest Pain. cholecalciferol, vitamin D3, (VITAMIN D3) 4,000 unit cap Take 1 capsule by mouth once daily. MULTIVITAMIN ORAL Take by mouth. Sawyer-3 Fatty Acids-Vitamin E (FISH OIL) 1,000 mg cap Take 1 capsule by mouth once daily. LACTOBACILLUS ACIDOPHILUS (PROBIOTIC ORAL) Take 1 tablet by mouth once daily. CPAP atorvastatin (LIPITOR) 40 mg tablet Take 1 tablet by mouth daily at bedtime. For cholesterol. No current facility-administered medications for this visit. MEDICATIONS Current Outpatient Prescriptions: montelukast (SINGULAIR) 10 mg tablet Take 10 mg by mouth daily at bedtime. Disp: Rfl: doxycycline hyclate 50 mg tab Take by mouth. Disp: Rfl: metFORMIN (GLUCOPHAGE) 500 mg tablet TAKE ONE TABLET BY MOUTH AFTER BREAKFAST AND TWO TABLETS AFTER DINNER Disp: 270 tablet Rfl: 3 TRULICITY 0.75 mg/0.5 mL pnij INJECT 0.75 MG SUBCUTANEOUSLY ONCE EACH WEEK Disp: 12 Pen Rfl: 1 ketoconazole (NIZORAL) 2 % shampoo Apply 1 application to affected area once daily as needed. Disp: 120 mL Rfl: 1 triamterene-hydrochlorothiazide 37.5-25 mg per capsule Take 1 capsule by mouth once daily. By. Dr. Pompa Disp: Rfl: metoprolol succinate ER (TOPROL XL) 25 mg 24 hr tablet Take 1 tablet by mouth twice daily. Per Dr. Gomez Disp: Rfl: aspirin 81 mg chewable tablet Take 1 tablet by mouth once daily. Disp: Rfl: 0 clopidogrel (PLAVIX) 75 mg tablet Take 1 tablet by mouth once daily. Disp: Rfl: lisinopril (ZESTRIL, PRINIVIL) 5 mg tablet Take 1 tablet by mouth once daily. Disp: 30 tablet Rfl: 0 nitroglycerin sublingual (NITROQUICK) 0.4 mg SL tablet Dissolve 1 tablet under the tongue every 5 minutes as needed for Chest Pain. Disp: 1 Bottle of 25 Rfl: 0 cholecalciferol, vitamin D3, (VITAMIN D3) 4,000 unit cap Take 1 capsule by mouth once daily. Disp: Rfl: 0 MULTIVITAMIN ORAL Take by mouth. Disp: Rfl: Sawyer-3 Fatty Acids-Vitamin E (FISH OIL) 1,000 mg cap Take 1 capsule by mouth once daily. Disp: Rfl: LACTOBACILLUS ACIDOPHILUS (PROBIOTIC ORAL) Take 1 tablet by mouth once daily. Disp: Rfl: CPAP Disp: Rfl: 0 atorvastatin (LIPITOR) 40 mg tablet Take 1 tablet by mouth daily at bedtime. For cholesterol. Disp: 90 tablet Rfl: 1 No current facility-administered medications for this visit. REVIEW OF SYSTEMS ALLERGIES Allergen Reactions - Brilinta [Ticagrelo* Shortness of Breath - Keflex [Cephalexin] facial flushing - Lipitor [Atorvastat* Other: See Comments myalgia - Lisinopril Cough - Lovastatin Other: See Comments myalgia - Beardsley [Hydrocodone-* Itching Review of Systems Constitutional Positive for Fatigue Eyes: Negative Hent Positive for Hearing Loss (Minears R ear) Negative for Tinnitus Cardiovascular Positive for Lightheadedness Respiratory (SEBAS- cpap) GI Positive for Blood in Stool Negative for Nausea/Vomiting Negative for Urgency and Incontinence Endocrine Negative for Excessive Thirst Musculoskeletal Negative for Back Pain and Muscle Pain Integumentary Negative for Rashes Heme/Lymph Positive for Easy Bruising Negative for Prolonged Bleeding Allergy/Immunologic: Negative Neurologic Negative for Memory Problems, Headache and Numbness/Tingling Psychiatric Negative for Depression and Anxiety Patient's Review of Systems has been reviewed with the patient and updated as appropriate. PHYSICAL EXAMINATION BP 114/75 (BP Site: Right Arm, BP Position: Sitting, BP Cuff Size: Regular Adult) Pulse 76 Resp 18 Ht 160 cm (5' 3) Wt 74.8 kg (165 lb) BMI 29.23 kg/m? General: Well-developed, well-nourished, in no acute distress. HEENT: Normocephalic, atraumatic. Sclerae anicteric. Oropharynx clear. Neck: No carotid bruit. Heart: Regular rate and rhythm, S1 S2, no murmurs. Lungs: Clear to auscultation bilaterally. Abdomen: Abdomen soft, non-tender. Extremities: No edema, cyanosis, or clubbing. 2+ dorsalis pedis pulses bilaterally. Skin: No rash or ecchymoses. Neurological: Awake, alert, oriented to person, place, and time. Speech fluent, no dysarthria. Naming, repetition, recall, comprehension, calculation intact. Good attention and insight into illness. Cranial Nerves: PERRL, extraocular movements intact without nystagmus. Visual harvey full. Fundoscopic examination normal with sharp optic discs bilaterally. Facial sensation and movements normal and symmetric. Palate elevates equal bilaterally. Tongue midline. Trapezius strength 5/5 bilaterally. Motor: Normal bulk and tone. Strength 5/5 throughout. No pronator drift or tremor. Sensation: Intact light touch, pinprick, temperature, proprioception, and vibration. Coordination: Rapid alternating movements symmetric bilaterally. [id number], [id number] without dysmetria bilaterally. Reflexes: 2+ reflexes symmetric bilaterally. Plantar response is flexor bilaterally. Gait: Narrow-based, normal spaced and stable without assistance. Tandem gait is stable. LABS Cholesterol: Cholesterol, Total (mg/dL) Date Value 02/25/2018 116 LDL Cholesterol (mg/dL) Date Value 02/25/2018 63 HDL Cholesterol (mg/dL) Date Value 02/25/2018 34 Triglyceride (mg/dL) Date Value 02/25/2018 93 Diabetes: Hemoglobin A1C (%) Date Value 02/25/2018 6.8 IMAGING See above in HPI CEREBROVASCULAR CATEGORIES Transient Ischemic Attack- Probable, not associated with acute imaging findings (imaging may/may not have been done). IMPRESSION AND RECOMMENDATIONS: Dom Barba is a 63yo RH woman with PMHx significant for HTN, HPL, DM2, CAD s/p PCI 12/2016 on DAPT, SEBAS, Menieres who is seen in the office for f/u TIA 06/29/2017. Symptoms c/w R HH, R sided numbness, receptive aphasia all resolving within hours and MRI/A unrevealing for acute stroke or LVO/high grade stenoses. No residual symptoms and NIHSS today 0. 1. TIA - likely inferior MCA territory --No residual symptoms or recurrent episodes --Ongoing RF modification, as below 2. HTN 3. HPL 4. DM2 --All 3 above fairly well controlled; would continue current medications; we discussed that if LDL >70, consider trial of Crestor 5mg every other night - if still with myalgias and needing HPL management, could consider PCSK9 inhibitor --A1c a bit higher than target 5. CAD s/p PCI 12/2016 --DIscussed from cerebrovascular standpoint, does not necessarily need to be maintained on DAPT unless needing to stay on from cardiovascular reasons; monotherapy with either would be fine from my standpoint 6. SEBAS --Continue CPAP 7. Meniere's Disease --Doing well on HCTZ combo pill A. Jeramy Darling MD Staff, Vascular Neurology August 02, 2018 9:08 AM CC Clifton Hung MD [id number] [facility] [address] Clifton Hung MD [address] [place] [address] CNOV Observed: 08/02/2018 Status: COMPLETED Source: [place] 7:40 AM [facility] REPOSITORY Office Visit ([id number]) DOM BARBA ([id number]) 1955 F Date Time Provider Department 08/02/18 7:40 AM CORINE DARLING [id number] During your visit today, we recorded the following information about you: Pulse Respiration Blood pressure Weight 76/minute 18/minute 114/75 74.8 kg Height 1.6 m Corine Darling MD 08/02/2018 9:09 AM Signed [facility] Initial Office Visit Consultation is requested by: Clifton Hung MD [id number] [facility] [id number] PCP: Clifton Hung MD [address] [place] [address] CEREBROVASCULAR HISTORY History of Recent Event: Dom Barba is a 63 year old female who presents for evaluation of TIA. Reason for visit: evaluation - PCP recommended follow up with stroke drChey Date of last event: Jun 2017 History of event: onset vision loss R eye lasting about 20 minutes. Also reports feeling not right having difficulty focusing, using computer. Taken to [facility] in [facility] sent her to [facility] Antiplatelet, Anticoalulant, Statin: Aspirin and Clopidogrel Side effects : Yes- work up in progress for Heme positive stool. Has tried Atorvastatin and Pravastatin - both caused myalgias Refills needed: No Residual deficits: No residual deficits PT/OT/ST: No therapy needs Disposition: Home Next phase of care: Not Applicable Interval history: No new stroke symptoms. Will have occasional dizziness - mostly noted with position changes. Difficulty with vision - (focusing) when she is fatigued. Plavix is currently on hold since Wednesday in prep for upper and lower GI. Questions for visit: explain what the imaging report means Staff Intake: *Reviewed above and agree with notation. See below for confirmation/additional information* ? *TIA 06/29/2017 --Though in some notes, mention of R eye disturbance or amaurosis fugax, pt tells me that it wasn't that she couldn't see out of her R eye, but while she was at work, she could not see the entire R half of one of her coworkers - this is more c/w R HH; she also states that she was having a hard time understanding what people were saying to her and could not input words into the computer though she was able to speak which fits with potential receptive aphasia. She does also mention that one side of her was numb, but could not remember which. Taking all of this into account, localization would fit with inferior division MCA TIA/stroke. --Taken to [place] where MRI/A showed some chronic small vessel disease (most notable L frontal region on my review), but no stroke, no LVO --Improved back to baseline within hours and was Dc'd home with no residual deficits --Kept on DAPT (was on for CAD with PCI 12/2016) --TTE 65% EF with no shunting or LA dilation --No current issues or complaints, just never f/u with neuro, so here today for check *Menieres --Hearing loss R>L and vertigo; has improved a great deal with HCTZ *HPL --LDL in 02/2018 was 63, so well controlled despite statin intolerance (myalgias with atorva and lova); see below for thoughts *DM --Most recent A1c 6.8 *SEBAS --Uses CPAP regularly ? *H/o Shingles 2016 --Improved with valacyclovir --Does noticed intermittent R occipital tenderness and pain - likely lymph node PAST MEDICAL HISTORY Diagnosis Date - Amaurosis fugax 10/29/2017 TIA; right visual disturbance 06/2017 - Arthritis tendonitis, arthritis - Atherosclerosis of [place] coronary artery with stable angina pectoris (HCC) 01/09/[address] Gomez - Garibay's cyst of knee, left 03/02/2018 - Colon polyp 2011 - Diabetes mellitus type 2, controlled, without complications ([facility]) - Essential hypertension 01/16/2016 - Female pattern hair loss - History of depression when - History of hyperparathyroidism - Mixed hyperlipidemia 05/31/2009 statin intolerance - Obstructive sleep apnea on CPAP Sibilia - Psoriasis - Rosacea with ocular symptoms - S/P angioplasty with stent 01/09/2017 stents to mid and proximal left anterior descending Art, and angio of ostium of #2 diagonal - Scalp itch - Seasonal allergies Dr Pompa - TIA (transient ischemic attack) 06/2017 - Vitamin D deficiency 2012 PAST SURGICAL HISTORY Procedure Laterality Date - 2D ECHO (EXEP) 06/30/2017 EF=65%, trivial [place], TI and 1+ PI Unchanged from 04/2017 - BUNIONECTOMY, LAPIDUS-TYPE 2009 left great toe - DELIVERY ONLY - COLONOSCOPY 9/30/15 no polyps, recheck 3-5 yrs - COLONOSCOPY AND POLYPECTOMY 10/12, 10/13 Dr Barba; hyperplastic polyps - HEART CATHETERIZATION 2004 heart cath-normal per patient - HEART CATHETERIZATION 01/04/2017 EF=60%, left anterior desending septal perferator 95-99% stenosis and diagonal branch 85% stenosis, - LOW BACK DISK SURGERY 2009 microdecompression L4 L5 - PAST SURGICAL HISTORY OF 2004 parathyroidectomy x1 - PAST SURGICAL HISTORY OF lipoma x2 - PAST SURGICAL HISTORY OF 10/13 left foot surgery (bone cyst in heel, removed) - PAST SURGICAL HISTORY OF 2014 bilateral carpel tunnel - PAST SURGICAL HISTORY OF Right 10/2016 trigger finger release x2 - REMOVAL GALLBLADDER 2004 Cholecystectomy - STENT PLACEMENT 01/06/2017 stents to mid and proximal left anterior descending Art, and angio of ostium of #2 diagonal - STRESS TEST 04/20/2017 WNL - TOTAL ABDOM HYSTERECTOMY 1995 LEDA for benign fibroid, ovaries intact FAMILY HISTORY Problem Relation Age of Onset - other (Pancreatic cancer) Mother - Coronary Artery Disease Father 25 [place] @ 25. CABG - Diabetes Paternal Grandmother - Diabetes Maternal Grandfather - other (Lung cancer) Brother - other (suicide) Son may of been depression Social History Marital status: Spouse name: Kisha Years of education: 14 Number of children: 3 Occupational History Occupation Employer [employer] Social History Main Topics Smoking status: Former Smoker Packs/day: 1.50 Years: 3.00 Types: Cigarettes Quit date: 11/08/1994 Smokeless tobacco: Never Used Comment: smoked 3 years in mid 90 Alcohol use: No Drug use: No Sexual activity: Yes Partners with: Male Social History Narrative 3 children. 06/2011. 1st child suicide at 17. Remarried. Current Outpatient Prescriptions: montelukast (SINGULAIR) 10 mg tablet Take 10 mg by mouth daily at bedtime. doxycycline hyclate 50 mg tab Take by mouth. metFORMIN (GLUCOPHAGE) 500 mg tablet TAKE ONE TABLET BY MOUTH AFTER BREAKFAST AND TWO TABLETS AFTER DINNER TRULICITY 0.75 mg/0.5 mL pnij INJECT 0.75 MG SUBCUTANEOUSLY ONCE EACH WEEK ketoconazole (NIZORAL) 2 % shampoo Apply 1 application to affected area once daily as needed. triamterene-hydrochlorothiazide 37.5-25 mg per capsule Take 1 capsule by mouth once daily. By. Dr. Pompa metoprolol succinate ER (TOPROL XL) 25 mg 24 hr tablet Take 1 tablet by mouth twice daily. Per Dr. Gomez aspirin 81 mg chewable tablet Take 1 tablet by mouth once daily. clopidogrel (PLAVIX) 75 mg tablet Take 1 tablet by mouth once daily. lisinopril (ZESTRIL, PRINIVIL) 5 mg tablet Take 1 tablet by mouth once daily. nitroglycerin sublingual (NITROQUICK) 0.4 mg SL tablet Dissolve 1 tablet under the tongue every 5 minutes as needed for Chest Pain. cholecalciferol, vitamin D3, (VITAMIN D3) 4,000 unit cap Take 1 capsule by mouth once daily. MULTIVITAMIN ORAL Take by mouth. Sawyer-3 Fatty Acids-Vitamin E (FISH OIL) 1,000 mg cap Take 1 capsule by mouth once daily. LACTOBACILLUS ACIDOPHILUS (PROBIOTIC ORAL) Take 1 tablet by mouth once daily. CPAP atorvastatin (LIPITOR) 40 mg tablet Take 1 tablet by mouth daily at bedtime. For cholesterol. No current facility-administered medications for this visit. MEDICATIONS Current Outpatient Prescriptions: montelukast (SINGULAIR) 10 mg tablet Take 10 mg by mouth daily at bedtime. Disp: Rfl: doxycycline hyclate 50 mg tab Take by mouth. Disp: Rfl: metFORMIN (GLUCOPHAGE) 500 mg tablet TAKE ONE TABLET BY MOUTH AFTER BREAKFAST AND TWO TABLETS AFTER DINNER Disp: 270 tablet Rfl: 3 TRULICITY 0.75 mg/0.5 mL pnij INJECT 0.75 MG SUBCUTANEOUSLY ONCE EACH WEEK Disp: 12 Pen Rfl: 1 ketoconazole (NIZORAL) 2 % shampoo Apply 1 application to affected area once daily as needed. Disp: 120 mL Rfl: 1 triamterene-hydrochlorothiazide 37.5-25 mg per capsule Take 1 capsule by mouth once daily. By. Dr. Pompa Disp: Rfl: metoprolol succinate ER (TOPROL XL) 25 mg 24 hr tablet Take 1 tablet by mouth twice daily. Per Dr. Gomez Disp: Rfl: aspirin 81 mg chewable tablet Take 1 tablet by mouth once daily. Disp: Rfl: 0 clopidogrel (PLAVIX) 75 mg tablet Take 1 tablet by mouth once daily. Disp: Rfl: lisinopril (ZESTRIL, PRINIVIL) 5 mg tablet Take 1 tablet by mouth once daily. Disp: 30 tablet Rfl: 0 nitroglycerin sublingual (NITROQUICK) 0.4 mg SL tablet Dissolve 1 tablet under the tongue every 5 minutes as needed for Chest Pain. Disp: 1 Bottle of 25 Rfl: 0 cholecalciferol, vitamin D3, (VITAMIN D3) 4,000 unit cap Take 1 capsule by mouth once daily. Disp: Rfl: 0 MULTIVITAMIN ORAL Take by mouth. Disp: Rfl: Sawyer-3 Fatty Acids-Vitamin E (FISH OIL) 1,000 mg cap Take 1 capsule by mouth once daily. Disp: Rfl: LACTOBACILLUS ACIDOPHILUS (PROBIOTIC ORAL) Take 1 tablet by mouth once daily. Disp: Rfl: CPAP Disp: Rfl: 0 atorvastatin (LIPITOR) 40 mg tablet Take 1 tablet by mouth daily at bedtime. For cholesterol. Disp: 90 tablet Rfl: 1 No current facility-administered medications for this visit. REVIEW OF SYSTEMS ALLERGIES Allergen Reactions - Brilinta [Ticagrelo* Shortness of Breath - Keflex [Cephalexin] facial flushing - Lipitor [Atorvastat* Other: See Comments myalgia - Lisinopril Cough - Lovastatin Other: See Comments myalgia - Beardsley [Hydrocodone-* Itching Review of Systems Constitutional Positive for Fatigue Eyes: Negative Hent Positive for Hearing Loss (Minears R ear) Negative for Tinnitus Cardiovascular Positive for Lightheadedness Respiratory (SEBAS- cpap) GI Positive for Blood in Stool Negative for Nausea/Vomiting Negative for Urgency and Incontinence Endocrine Negative for Excessive Thirst Musculoskeletal Negative for Back Pain and Muscle Pain Integumentary Negative for Rashes Heme/Lymph Positive for Easy Bruising Negative for Prolonged Bleeding Allergy/Immunologic: Negative Neurologic Negative for Memory Problems, Headache and Numbness/Tingling Psychiatric Negative for Depression and Anxiety Patient's Review of Systems has been reviewed with the patient and updated as appropriate. PHYSICAL EXAMINATION BP 114/75 (BP Site: Right Arm, BP Position: Sitting, BP Cuff Size: Regular Adult) Pulse 76 Resp 18 Ht 160 cm (5' 3) Wt 74.8 kg (165 lb) BMI 29.23 kg/m? General: Well-developed, well-nourished, in no acute distress. HEENT: Normocephalic, atraumatic. Sclerae anicteric. Oropharynx clear. Neck: No carotid bruit. Heart: Regular rate and rhythm, S1 S2, no murmurs. Lungs: Clear to auscultation bilaterally. Abdomen: Abdomen soft, non-tender. Extremities: No edema, cyanosis, or clubbing. 2+ dorsalis pedis pulses bilaterally. Skin: No rash or ecchymoses. Neurological: Awake, alert, oriented to person, place, and time. Speech fluent, no dysarthria. Naming, repetition, recall, comprehension, calculation intact. Good attention and insight into illness. Cranial Nerves: PERRL, extraocular movements intact without nystagmus. Visual harvey full. Fundoscopic examination normal with sharp optic discs bilaterally. Facial sensation and movements normal and symmetric. Palate elevates equal bilaterally. Tongue midline. Trapezius strength 5/5 bilaterally. Motor: Normal bulk and tone. Strength 5/5 throughout. No pronator drift or tremor. Sensation: Intact light touch, pinprick, temperature, proprioception, and vibration. Coordination: Rapid alternating movements symmetric bilaterally. [id number]-dx-[id number], [id number]-coxl without dysmetria bilaterally. Reflexes: 2+ reflexes symmetric bilaterally. Plantar response is flexor bilaterally. Gait: Narrow-based, normal spaced and stable without assistance. Tandem gait is stable. LABS Cholesterol: Cholesterol, Total (mg/dL) Date Value 02/25/2018 116 LDL Cholesterol (mg/dL) Date Value 02/25/2018 63 HDL Cholesterol (mg/dL) Date Value 02/25/2018 34 Triglyceride (mg/dL) Date Value 02/25/2018 93 Diabetes: Hemoglobin A1C (%) Date Value 02/25/2018 6.8 IMAGING See above in HPI CEREBROVASCULAR CATEGORIES Transient Ischemic Attack- Probable, not associated with acute imaging findings (imaging may/may not have been done). IMPRESSION AND RECOMMENDATIONS: Dom Barba is a 63yo RH woman with PMHx significant for HTN, HPL, DM2, CAD s/p PCI 12/2016 on DAPT, SEBAS, Menieres who is seen in the office for f/u TIA 06/29/2017. Symptoms c/w R HH, R sided numbness, receptive aphasia all resolving within hours and MRI/A unrevealing for acute stroke or LVO/high grade stenoses. No residual symptoms and NIHSS today 0. 1. TIA - likely inferior MCA territory --No residual symptoms or recurrent episodes --Ongoing RF modification, as below 2. HTN 3. HPL 4. DM2 --All 3 above fairly well controlled; would continue current medications; we discussed that if LDL >70, consider trial of Crestor 5mg every other night - if still with myalgias and needing HPL management, could consider PCSK9 inhibitor --A1c a bit higher than target 5. CAD s/p PCI 12/2016 --DIscussed from cerebrovascular standpoint, does not necessarily need to be maintained on DAPT unless needing to stay on from cardiovascular reasons; monotherapy with either would be fine from my standpoint 6. SEBAS --Continue CPAP 7. Meniere's Disease --Doing well on HCTZ combo pill Marck Darling MD Staff, Vascular Neurology August 02, 2018 9:08 AM CC Clifton Hung MD [address] [facility] [address] Clifton Hung MD [address] [place] [address] Corine Darling MD 08/02/2018 8:36 AM Signed Regarding your visit with Dr. Darling and Nurse Yoav Lange today at the [facility] we discussed the following: *TIA 06/2017; resolved --Continue current medications --No indication for statin at this time, but can try Crestor 5mg every other night if needed in future --Continue ASA + Plavix for now, but if no cardiac indication, would be okay with monotherapy with either from stroke standpoint -Regular follow up with primary care doctor for health maintenance -Assist ensuring blood pressure and cholesterol are at goal -Screen and manage diabetes -Lifestyle modification -- Establish goals -Diet -Regular Exercise as discussed -Establish weight goals with primary care doctor -Additional stroke reduction measures and stroke warning signs are listed below. Please do not hesitate to call if you have any questions Marck Darling MD [facility] [address] [place] [address] / [address] [address] Office: [phone] ~~~~~~~~~~~~~~~~~~~~~~~~~~~~~~~~~~~~~~~~~~~~~~~~~~~~~~~~~~~~~~~~~~~~~~~~ Stroke Signs and Symptoms: *Stroke is a medical emergency. Know the warning signs of stroke: Sudden numbness or weakness of the face, arm or leg, especially on one side of the body Sudden confusion, trouble speaking, or understanding Sudden trouble seeing in one eye, or both eyes Sudden trouble walking, dizziness, loss of balance, or coordination Sudden severe headache with no known cause *If you, or someone with you, has one or more of these signs, don't delay! Immediately call 911, or the emergency medical services (EMS) number so an ambulance can be sent for you. Also, check the time so that you will know when the symptoms first appeared. It is very important to take immediate action, every second counts. Medical treatment may be available if action is taken early enough. ~~~~~~~~~~~~~~~~~~~~~~~~~~~~~~~~~~~~~~~~~~~~~~~~~~~~~~~~~~~~~~~~~~~~~~~~ General Guidelines to Help Reduce Risk of Recurrent Stroke Blood Pressure Management: Blood Pressure reduction is recommended for both prevention of recurrent stroke and prevention of other vascular events in persons who have had an ischemic stroke or TIA and are beyond the first 24 hours. Several lifestyle modifications have been associated with BP reduction and are a reasonable part of a comprehensive antihypertensive therapy -These modifications include: - salt restriction - weight loss - consumption of a diet rich in fruits, vegetables, and low- fat dairy products - Regular aerobic physical activity - Limited alcohol consumption Goal: Prehypertension (systolic BP of 120-139 mm Hg or diastolic BP of 80-89 mm Hg): Perform annual BP screening and lifestyle modifications Hypertension: Combine medications with above lifestyle modifications to reach your goal blood pressure as defined above. Monitor your blood pressure at home regularly to ensure you are reaching your goals Cholesterol and Lipid Management - Statin therapy with intensive lipid-lowering effects is recommended to reduce risk of stroke and cardiovascular events among patients with ischemic stroke or TIA who have evidence of atherosclerosis Diet: - Reduced sodium and increased potassium intake; DASH-style diet rich in fruits and vegetables - Consider Mediterranean diet supplemented with nuts Smoking and Tobacco Use: - Strongly recommend smoking and tobacco use cessation to reduce risk of stroke. - Counseling, nicotine products, and oral smoking cessation medications are effective for helping smokers quit and can be provided if needed. Alcohol Consumption: - Heavy drinkers should eliminate or reduce their consumption of alcohol. - Persons who continue drinking the following may be reasonable: - less than or equal to 2 drinks/day for men - less than or equal to 1 drink/day for non women Exercise - If capable of engaging in physical activity, at least 40 minutes of moderate to vigorous intensity physical exercise, typically defined as vigorous activity sufficient to break a sweat or noticeably raise heart rate, 3-4 days a week (eg, walking briskly, using an exercise bicycle) may be considered to reduce the risk factors and comorbid conditions that increase the likelihood of recurrent stroke - If disability after ischemic stroke, supervision by a healthcare professional, such as a physical therapist or cardiac rehabilitation professional, at least on initiation of an exercise regimen, may be considered Adopted from the [place] [employer] Attack : A Guideline for Healthcare Professionals From the [place] [employer] Guidelines for the Prevention of Stroke in Patients With Stroke or Transient Ischemic Referring Provider: CLIFTON HUNG [[id number]] Allergies As of Date: 08/02/2018 Noted Allergy Reaction BRILINTA (TICAGRELOR) 06/28/2017 12 - Shortness of Breath KEFLEX (CEPHALEXIN) 02/02/2006 Comments: facial flushing LIPITOR (ATORVASTATIN) 07/21/2013 14 - Other: See Comments Comments: myalgia LISINOPRIL 07/21/2013 3 - Cough LOVASTATIN 07/21/2013 14 - Other: See Comments Comments: myalgia NORCO (HYDROCODONE-ACETAMINOPHEN) 10/29/2016 9 - Itching Date Reviewed: 08/02/2018 Reviewed by: Corine Darling - Fully Assessed Reason for Visit: New Patient [172] Primary Visit Diagnosis:Mixed hyperlipidemia [E78.2] Other Visit Diagnoses:Essential hypertension [I10] Controlled type 2 diabetes mellitus without complication, without long-term current use of insulin (HCC) [E11.9] History of transient ischemic attack (TIA) [Z86.73] Obstructive sleep apnea on CPAP [G47.33, Z99.89] Meniere disease, right [H81.01] Prescriptions as of 08/02/2018 Sig: MONTELUKAST 10 MG TABLET Take 10 mg by mouth daily at * DOXYCYCLINE HYCLATE 50 MG TAB* Take by mouth. METFORMIN 500 MG TABLET TAKE ONE TABLET BY MOUTH AFTE* TRULICITY 0.75 MG/0.5 ML SUBC* INJECT 0.75 MG SUBCUTANEOUSLY* KETOCONAZOLE 2 % SHAMPOO Apply 1 application to affect* TRIAMTERENE 37.5 MG-HYDROCHLO* Take 1 capsule by mouth once * METOPROLOL SUCCINATE ER 25 MG* Take 1 tablet by mouth twice * ASPIRIN 81 MG CHEWABLE TABLET Take 1 tablet by mouth once d* CLOPIDOGREL 75 MG TABLET Take 1 tablet by mouth once d* LISINOPRIL 5 MG TABLET Take 1 tablet by mouth once d* NITROGLYCERIN 0.4 MG SUBLINGU* Dissolve 1 tablet under the t* CHOLECALCIFEROL (VITAMIN D3) * Take 1 capsule by mouth once * MULTIVITAMIN ORAL Take by mouth. OMEGA-3 FATTY ACIDS-VITAMIN E* Take 1 capsule by mouth once * PROBIOTIC ORAL Take 1 tablet by mouth once d* * CPAP Problem List As Of Date 08/02/2018 Noted Resolved Mixed hyperlipidemia [E78.2] INVALID FOR* Priority: A More... Obstructive sleep apnea on CPAP [G47.33, Z99.89] Priority: B More... Scalp itch [L29.9] Priority: D Seasonal allergies [J30.2] Priority: B More... History of depression [Z86.59] Priority: B More... More... Arthritis [M19.90] Priority: M More... Rosacea [L71.9] Priority: D More... History of hyperparathyroidism [Z86.39] Priority: B More... 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 Diabetic eye exam (HCC) [Z01.00, E11.9] INVALID FOR* Priority: A More... Well adult exam [Z00.00] INVALID FOR* Priority: E More... Colon cancer screening [Z12.11] INVALID FOR* Controlled type 2 diabetes mellitus without com*INVALID FOR* Priority: A Atherosclerosis of [place] coronary artery with *INVALID FOR* Priority: A More... S/P angioplasty with stent [Z95.9] INVALID FOR* Priority: A More... Meniere disease, right [H81.01] INVALID FOR* Priority: B History of transient ischemic attack (TIA) [Z86*INVALID FOR* Priority: A More... Garibay's cyst of knee, left [M71.22] INVALID FOR* Priority: M Other instructions from your clinician: Regarding your visit with Dr. Darling and Nurse Yoav Lange today at the [facility] we discussed the following: *TIA 06/2017; resolved --Continue current medications --No indication for statin at this time, but can try Crestor 5mg every other night if needed in future --Continue ASA + Plavix for now, but if no cardiac indication, would be okay with monotherapy with either from stroke standpoint -Regular follow up with primary care doctor for health maintenance -Assist ensuring blood pressure and cholesterol are at goal -Screen and manage diabetes -Lifestyle modification -- Establish goals -Diet -Regular Exercise as discussed -Establish weight goals with primary care doctor -Additional stroke reduction measures and stroke warning signs are listed below. Please do not hesitate to call if you have any questions Marck Darling MD [facility] [address] [place] [address] / [place] [id number] Office: [phone] ~~~~~~~~~~~~~~~~~~~~~~~~~~~~~~~~~~~~~~~~~~~~~~~~~~~~~~~~~~~~~~~~~~~~~~~~ Stroke Signs and Symptoms: *Stroke is a medical emergency. Know the warning signs of stroke: Sudden numbness or weakness of the face, arm or leg, especially on one side of the body Sudden confusion, trouble speaking, or understanding Sudden trouble seeing in one eye, or both eyes Sudden trouble walking, dizziness, loss of balance, or coordination Sudden severe headache with no known cause *If you, or someone with you, has one or more of these signs, don't delay! Immediately call 911, or the emergency medical services (EMS) number so an ambulance can be sent for you. Also, check the time so that you will know when the symptoms first appeared. It is very important to take immediate action, every second counts. Medical treatment may be available if action is taken early enough. ~~~~~~~~~~~~~~~~~~~~~~~~~~~~~~~~~~~~~~~~~~~~~~~~~~~~~~~~~~~~~~~~~~~~~~~~ General Guidelines to Help Reduce Risk of Recurrent Stroke Blood Pressure Management: Blood Pressure reduction is recommended for both prevention of recurrent stroke and prevention of other vascular events in persons who have had an ischemic stroke or TIA and are beyond the first 24 hours. Several lifestyle modifications have been associated with BP reduction and are a reasonable part of a comprehensive antihypertensive therapy -These modifications include: - salt restriction - weight loss - consumption of a diet rich in fruits, vegetables, and low-fat dairy products - Regular aerobic physical activity - Limited alcohol consumption Goal: Prehypertension (systolic BP of 120-139 mm Hg or diastolic BP of 80-89 mm Hg): Perform annual BP screening and lifestyle modifications Hypertension: Combine medications with above lifestyle modifications to reach your goal blood pressure as defined above. Monitor your blood pressure at home regularly to ensure you are reaching your goals Cholesterol and Lipid Management - Statin therapy with intensive lipid-lowering effects is recommended to reduce risk of stroke and cardiovascular events among patients with ischemic stroke or TIA who have evidence of atherosclerosis Diet: - Reduced sodium and increased potassium intake; DASH- style diet rich in fruits and vegetables - Consider Mediterranean diet supplemented with nuts Smoking and Tobacco Use: - Strongly recommend smoking and tobacco use cessation to reduce risk of stroke. - Counseling, nicotine products, and oral smoking cessation medications are effective for helping smokers quit and can be provided if needed. Alcohol Consumption: - Heavy drinkers should eliminate or reduce their consumption of alcohol. - Persons who continue drinking the following may be reasonable: - less than or equal to 2 drinks/day for men - less than or equal to 1 drink/day for non women Exercise - If capable of engaging in physical activity, at least 40 minutes of moderate to vigorous intensity physical exercise, typically defined as vigorous activity sufficient to break a sweat or noticeably raise heart rate, 3-4 days a week (eg, walking briskly, using an exercise bicycle) may be considered to reduce the risk factors and comorbid conditions that increase the likelihood of recurrent stroke - If disability after ischemic stroke, supervision by a healthcare professional, such as a physical therapist or cardiac rehabilitation professional, at least on initiation of an exercise regimen, may be considered Adopted from the [place] [employer] Attack : A Guideline for Healthcare Professionals From the [place] [employer] Guidelines for the Prevention of Stroke in Patients With Stroke or Transient Ischemic Medications Discontinued During This Encounter atorvastatin (LIPITOR) 40 mg tablet 90 t* 1 03/02/2018 08/02/2018 Route: ORAL Sig: Take 1 tablet by mouth daily at bedtime. For cholesterol. Disc: Side Effects Disposition: Return if symptoms worsen or fail to improve. Follow-up and Disposition History Recorded Encounter Status:Closed by CORINE DARLING MD on 08/02/18 PROGRESS Observed: 07/22/2018 Status: COMPLETED Source: [place] [address]:02 PM [facility] HNO ID: [id number] Author: Seema Alicia (Pa) Service: (none) Author Type: Physician Landscape Foreman Type: Progress Notes Filed: 07/22/2018 3:12 PM Note Text: HISTORY AND PHYSICAL Dom Barba 1955 REFERRING PHYSICIAN: Clifton Hung MD CHIEF COMPLAINT: Consult (consult EGD) HPI: The patient is a 63 year old female referred for endoscopy. Per my HANDP from July 2017: ?The patient is a 61 year old female referred for endoscopy. Dom notes no colon complaints. She denies any change in bowel habits, weight changes, blood in stools, black tarry stools or abdominal pain. She denies any family history of colon issues. The patient notes no history of upper GI complaints. Dom has undergone prior endoscopy, most recently in 2014 with 3-5 year follow-up recommended. The patient recently underwent routine health maintenance including hemoccult card which was positive for occult blood. She has been referred to discuss endoscopy. ? Of note, patient was recently hospitalized following a transient ischemic attack. She has been evaluated by primary care but has not yet seen a neurologist. She is currently maintained on Plavix and aspirin. ? The patient is being seen by me today at the request of Dr. Hung for my opinion and advice regarding heme positive stool. ? ?In light of the recent TIA, recommendation following discussion with surgeon at that time was to wait at least 3-4 months to perform procedure after patient was seen by neurology. Patient had not returned to our office until today's visit. She notes she has had no further TIA symptoms. She was diagnosed with shingles on her scalp in June, was treated for this and feeling much better with no complaints currently. Other significant medical history includes hypertension, hyperlipidemia, coronary atherosclerosis, s/p angioplasty with stent, obstructive sleep apnea, type II diabetes mellitus. Patient denies any chest pain or shortness of breath. Denies problems with sedation in the past. PAST MEDICAL HISTORY Diagnosis Date - Amaurosis fugax 10/29/2017 TIA; right visual disturbance 06/2017 - Arthritis tendonitis, arthritis - Atherosclerosis of [place] coronary artery with stable angina pectoris (HCC) 01/09/[address] Gomez - Garibay's cyst of knee, left 03/02/2018 - Colon polyp 2011 - Diabetes mellitus type 2, controlled, without complications (HCC) - Essential hypertension 01/16/2016 - Female pattern hair loss - History of depression when - History of hyperparathyroidism - Mixed hyperlipidemia 05/31/2009 statin intolerance - Obstructive sleep apnea on CPAP [place] - Psoriasis - Rosacea with ocular symptoms - S/P angioplasty with stent 01/09/2017 stents to mid and proximal left anterior descending Art, and angio of ostium of #2 diagonal - Scalp itch - Seasonal allergies Dr Pompa - TIA (transient ischemic attack) 06/2017 - Vitamin D deficiency 2012 PAST SURGICAL HISTORY Procedure Laterality Date - 2D ECHO (EXEP) 06/30/2017 EF=65%, trivial [place], TI and 1+ PI Unchanged from 04/2017 - BUNIONECTOMY, LAPIDUS-TYPE 2010 left great toe - DELIVERY ONLY - COLONOSCOPY 08/07/15 no polyps, recheck 3-5 yrs - COLONOSCOPY AND POLYPECTOMY 10/12, 10/13 Dr Barba; hyperplastic polyps - HEART CATHETERIZATION 2004 heart cath-normal per patient - HEART CATHETERIZATION 01/04/2017 EF=60%, left anterior desending septal perferator 95-99% stenosis and diagonal branch 85% stenosis, - LOW BACK DISK SURGERY 2009 microdecompression L4 L5 - PAST SURGICAL HISTORY OF 2004 parathyroidectomy x1 - PAST SURGICAL HISTORY OF lipoma x2 - PAST SURGICAL HISTORY OF 10/13 left foot surgery (bone cyst in heel, removed) - PAST SURGICAL HISTORY OF 2014 bilateral carpel tunnel - PAST SURGICAL HISTORY OF Right 10/2016 trigger finger release x2 - REMOVAL GALLBLADDER 2004 Cholecystectomy - STENT PLACEMENT 01/06/2017 stents to mid and proximal left anterior descending Art, and angio of ostium of #2 diagonal - STRESS TEST 04/20/2017 WNL - TOTAL ABDOM HYSTERECTOMY 1995 LEDA for benign fibroid, ovaries intact Current Outpatient Prescriptions: montelukast (SINGULAIR) 10 mg tablet Take 10 mg by mouth daily at bedtime. doxycycline hyclate 50 mg tab Take by mouth. metFORMIN (GLUCOPHAGE) 500 mg tablet TAKE ONE TABLET BY MOUTH AFTER BREAKFAST AND TWO TABLETS AFTER DINNER TRULICITY 0.75 mg/0.5 mL pnij INJECT 0.75 MG SUBCUTANEOUSLY ONCE EACH WEEK atorvastatin (LIPITOR) 40 mg tablet Take 1 tablet by mouth daily at bedtime. For cholesterol. ketoconazole (NIZORAL) 2 % shampoo Apply 1 application to affected area once daily as needed. triamterene-hydrochlorothiazide 37.5-25 mg per capsule Take 1 capsule by mouth once daily. By. Dr. Pompa metoprolol succinate ER (TOPROL XL) 25 mg 24 hr tablet Take 1 tablet by mouth twice daily. Per Dr. Gomez aspirin 81 mg chewable tablet Take 1 tablet by mouth once daily. clopidogrel (PLAVIX) 75 mg tablet Take 1 tablet by mouth once daily. lisinopril (ZESTRIL, PRINIVIL) 5 mg tablet Take 1 tablet by mouth once daily. nitroglycerin sublingual (NITROQUICK) 0.4 mg SL tablet Dissolve 1 tablet under the tongue every 5 minutes as needed for Chest Pain. cholecalciferol, vitamin D3, (VITAMIN D3) 4,000 unit cap Take 1 capsule by mouth once daily. MULTIVITAMIN ORAL Take by mouth. Sawyer-3 Fatty Acids-Vitamin E (FISH OIL) 1,000 mg cap Take 1 capsule by mouth once daily. LACTOBACILLUS ACIDOPHILUS (PROBIOTIC ORAL) Take 1 tablet by mouth once daily. CPAP No current facility-administered medications for this visit. ALLERGIES: Brilinta [Ticagrelor]; Keflex [Cephalexin]; Lipitor [Atorvastatin]; Lisinopril; Lovastatin; [place] [Hydrocodone-Acetaminophen] PERSONAL HISTORY: Social History Marital status: Spouse name: Kisha Years of education: 14 Number of children: 3 Occupational History Occupation Employer [employer] Social History Main Topics Smoking status: Former Smoker Packs/day: 1.50 Years: 3.00 Types: Cigarettes Quit date: 11/08/1994 Smokeless tobacco: Never Used Comment: smoked 3 years in mid 90s Alcohol use: No Drug use: No Sexual activity: Yes Partners with: Male Social History Narrative 3 children. 06/2011. 1st child suicide at 15. Remarried. FAMILY HISTORY: FAMILY HISTORY Problem Relation Age of Onset - other (Pancreatic cancer) Mother - Coronary Artery Disease Father 25 [place] @ 25. CABG - Diabetes Paternal Grandmother - Diabetes Maternal Grandfather - other (Lung cancer) Brother - other (suicide) Son may of been depression REVIEW OF SYMPTOMS: The review of systems data was entered by the nurse and reviewed by tx Nursing Notes: Cristobal Al LPN 07/21/2018 8:25 AM Signed REVIEW OF SYSTEMS: General: The patient denies fatigue, denies weight loss, denies weight gain, denies feeling hot, and denies feelings of cold. Eyes: The patient denies glaucoma, denies eye injury/surgery, wears glasses or contacts. Ear/Nose/Throat: The patient NOTES allergies, NOTES hayfever, denies ear infections, and denies bloody noses. Cardiovascular: The patient denies chest pain, denies heart disease, NOTES high blood pressure,NOTES cardiac stent, denies prior heart attack, denies irregular heart beat, NOTES high cholesterol, denies poor circulation, denies heart failure, other cardiac issues, denies claudication, denies cold feet, denies peripheral arterial stent. Respiratory: The patient denies tuberculosis, NOTES pneumonia, denies frequent cough, denies pulmonary embolism, NOTES shortness of breath, and denies coughing up blood. Gastrointestinal: The patient denies difficulty swallowing, denies acid reflux, denies ulcers, denies vomiting, denies jaundice/hepatitis, denies gallbladder problems, denies black or tarry stools, NOTES hemorrhoids, denies bleeding from rectum, denies diverticulitis, NOTES constipation, denies diarrhea, denies loss of stool control, and denies hernias. Kidney/Bladder: The patient denies kidney stones, denies urine infections, and denies bloody urine. Skin: The patient denies a history of skin cancer, denies bleeding/changing moles, and denies a history of skin rash. Neurologic: The patient denies a history of epilepsy/convulsions, denies headaches, denies head/spinal injuries, and NOTES stroke/TIA. Psychiatric: The patient denies psychiatric medications, denies depression, and denies voices, denies substance abuse. Endocrine: The patient denies thyroid disorders, denies diabetes, and denies hormonal problems. Hematologic: The patient denies a history of bruising, denies bleeding, and denies anemia, denies blood clots. Infections: The patient NOTES a history of measles and mumps, denies rheumatic fever, and denies sexually transmitted diseases. Musculoskeletal: The patient NOTES back pain/injury, denies back problems, NOTES sciatica, NOTES knee/foot trouble, NOTES arthritis, or denies gout. I have confirmed and edited as necessary, the PFSH and ROS obtained by others. PHYSICAL EXAMINATION: General: The patient is 63 year old female, well nourished, well hydrated in no acute distress. The patient is oriented to time, place, and person. VITALS: Blood pressure 132/68, pulse 80. There is no height or weight on file to calculate BMI. HEENT: Normal cephalic, ataumatic, pupils are equally round, sclera are anicteric, mucous membranes are moist, oropharynx is clear. Neck has no masses, asymmetry or lymphadenopathy. Respiratory: Clear to auscultation and percussion. Normal respiratory excursion and pattern. Cardiac: Examination is regular rate and rhythm. Normal S1/S2 Abdominal exam: Soft, nontender, with no palpable masses. No hepatosplenomegaly. No palpable hernias. Rectal exam: exam deferred Extremities: no clubbing, cyanosis or edema. No adenopathy. Other: LABORATORY VALUES: As Noted RADIOLOGIC STUDIES: As Noted Assessment IMPRESSION: heme positive stool, recommend EGD/colonoscopy PLAN: We will plan for upper and lower endoscopy. We discussed the risks and benefits of the planned endoscopy. I have informed the patient that complications can occur including failure to complete the endoscopy and perforation. The patient had the opportunity to ask questions concerning the planned endoscopy. My staff has also explained the procedure to the patient in understandable terms and has given the patient printed material concerning the procedure. The patient freely consents to surgery. I plan to use golytely bowel preparation for endoscopy Patient may remain on her anticoagulation for the endoscopy as Dr. Wiley does not require this to be held She has been instructed to follow up with her PCP for instructions regarding her diabetic medications for the procedure Patient verbalized understanding of all above and agreed with the plan Diagnoses: (R19.5) Heme positive stool (primary encounter diagnosis) My findings have been communicated to Dr. Hung via shared medical record. This note will be forwarded to Dr. Clifton Hung MD. Return to Clinic: The patient is instructed to follow-up with me 1 week post operatively. I spent 30 minutes in the visit, with more than 50% of the total stfq-xv-vtip time of the visit in counseling / coordination of care. KELLY [place] Observed: 07/21/2018 Status: COMPLETED Source: [place] 8:30 AM [facility] REPOSITORY Office Visit (GENSWS) DOM BARBA ([id number]) 1955 F Date Time Provider Department 07/21/18 8:30 AM SEEMA ALICIA) GENSWS During your visit today, we recorded the following information about you: Pulse Blood pressure 80/minute 132/68 Cristobal Al LPN 07/21/2018 8:25 AM Signed REVIEW OF SYSTEMS: General: The patient denies fatigue, denies weight loss, denies weight gain, denies feeling hot, and denies feelings of cold. Eyes: The patient denies glaucoma, denies eye injury/surgery, wears glasses or contacts. Ear/Nose/Throat: The patient NOTES allergies, NOTES hayfever, denies ear infections, and denies bloody noses. Cardiovascular: The patient denies chest pain, denies heart disease, NOTES high blood pressure,NOTES cardiac stent, denies prior heart attack, denies irregular heart beat, NOTES high cholesterol, denies poor circulation, denies heart failure, other cardiac issues, denies claudication, denies cold feet, denies peripheral arterial stent. Respiratory: The patient denies tuberculosis, NOTES pneumonia, denies frequent cough, denies pulmonary embolism, NOTES shortness of breath, and denies coughing up blood. Gastrointestinal: The patient denies difficulty swallowing, denies acid reflux, denies ulcers, denies vomiting, denies jaundice/hepatitis, denies gallbladder problems, denies black or tarry stools, NOTES hemorrhoids, denies bleeding from rectum, denies diverticulitis, NOTES constipation, denies diarrhea, denies loss of stool control, and denies hernias. Kidney/Bladder: The patient denies kidney stones, denies urine infections, and denies bloody urine. Skin: The patient denies a history of skin cancer, denies bleeding/changing moles, and denies a history of skin rash. Neurologic: The patient denies a history of epilepsy/convulsions, denies headaches, denies head/spinal injuries, and NOTES stroke/TIA. Psychiatric: The patient denies psychiatric medications, denies depression, and denies voices, denies substance abuse. Endocrine: The patient denies thyroid disorders, denies diabetes, and denies hormonal problems. Hematologic: The patient denies a history of bruising, denies bleeding, and denies anemia, denies blood clots. Infections: The patient NOTES a history of measles and mumps, denies rheumatic fever, and denies sexually transmitted diseases. Musculoskeletal: The patient NOTES back pain/injury, denies back problems, NOTES sciatica, NOTES knee/foot trouble, NOTES arthritis, or denies gout. Seema Alicia PA-C 07/22/2018 3:12 PM Signed HISTORY AND PHYSICAL Dom Barba 1955 REFERRING PHYSICIAN: Clifton Hnug MD CHIEF COMPLAINT: Consult (consult EGD) HPI: The patient is a 63 year old female referred for endoscopy. Per my HANDP from July 2017: ?The patient is a 61 year old female referred for endoscopy. Dom notes no colon complaints. She denies any change in bowel habits, weight changes, blood in stools, black tarry stools or abdominal pain. She denies any family history of colon issues. The patient notes no history of upper GI complaints. Dom has undergone prior endoscopy, most recently in 2014 with 3-5 year follow-up recommended. The patient recently underwent routine health maintenance including hemoccult card which was positive for occult blood. She has been referred to discuss endoscopy. ? Of note, patient was recently hospitalized following a transient ischemic attack. She has been evaluated by primary care but has not yet seen a neurologist. She is currently maintained on Plavix and aspirin. ? The patient is being seen by me today at the request of Dr. Hung for my opinion and advice regarding heme positive stool. ? ?In light of the recent TIA, recommendation following discussion with surgeon at that time was to wait at least 3-4 months to perform procedure after patient was seen by neurology. Patient had not returned to our office until today's visit. She notes she has had no further TIA symptoms. She was diagnosed with shingles on her scalp in June, was treated for this and feeling much better with no complaints currently. Other significant medical history includes hypertension, hyperlipidemia, coronary atherosclerosis, s/p angioplasty with stent, obstructive sleep apnea, type II diabetes mellitus. Patient denies any chest pain or shortness of breath. Denies problems with sedation in the past. PAST MEDICAL HISTORY Diagnosis Date - Amaurosis fugax 10/29/2017 TIA; right visual disturbance 06/2017 - Arthritis tendonitis, arthritis - Atherosclerosis of [place] coronary artery with stable angina pectoris (HCC) 01/09/[address] Gomez - Garibay's cyst of knee, left 03/02/2018 - Colon polyp 2011 - Diabetes mellitus type 2, controlled, without complications ([facility]) - Essential hypertension 01/16/2016 - Female pattern hair loss - History of depression when - History of hyperparathyroidism - Mixed hyperlipidemia 05/31/2009 statin intolerance - Obstructive sleep apnea on CPAP Sibilia - Psoriasis - Rosacea with ocular symptoms - S/P angioplasty with stent 01/09/2017 stents to mid and proximal left anterior descending Art, and angio of ostium of #2 diagonal - Scalp itch - Seasonal allergies Dr Pompa - TIA (transient ischemic attack) 06/2017 - Vitamin D deficiency 2012 PAST SURGICAL HISTORY Procedure Laterality Date - 2D ECHO (EXEP) 06/30/2017 EF=65%, trivial [place], TI and 1+ PI Unchanged from 04/2017 - BUNIONECTOMY, LAPIDUS-TYPE 2010 left great toe - DELIVERY ONLY - COLONOSCOPY 08/07/15 no polyps, recheck 3-5 yrs - COLONOSCOPY AND POLYPECTOMY 10/12, 10/13 Dr Barba; hyperplastic polyps - HEART CATHETERIZATION 2004 heart cath-normal per patient - HEART CATHETERIZATION 01/04/2017 EF=60%, left anterior desending septal perferator 95-99% stenosis and diagonal branch 85% stenosis, - LOW BACK DISK SURGERY 2010 microdecompression L4 L5 - PAST SURGICAL HISTORY OF 2004 parathyroidectomy x1 - PAST SURGICAL HISTORY OF lipoma x2 - PAST SURGICAL HISTORY OF 10/13 left foot surgery (bone cyst in heel, removed) - PAST SURGICAL HISTORY OF 2014 bilateral carpel tunnel - PAST SURGICAL HISTORY OF Right 10/2016 trigger finger release x2 - REMOVAL GALLBLADDER 2004 Cholecystectomy - STENT PLACEMENT 01/06/2017 stents to mid and proximal left anterior descending Art, and angio of ostium of #2 diagonal - STRESS TEST 04/20/2017 WNL - TOTAL ABDOM HYSTERECTOMY 1995 LEDA for benign fibroid, ovaries intact Current Outpatient Prescriptions: montelukast (SINGULAIR) 10 mg tablet Take 10 mg by mouth daily at bedtime. doxycycline hyclate 50 mg tab Take by mouth. metFORMIN (GLUCOPHAGE) 500 mg tablet TAKE ONE TABLET BY MOUTH AFTER BREAKFAST AND TWO TABLETS AFTER DINNER TRULICITY 0.75 mg/0.5 mL pnij INJECT 0.75 MG SUBCUTANEOUSLY ONCE EACH WEEK atorvastatin (LIPITOR) 40 mg tablet Take 1 tablet by mouth daily at bedtime. For cholesterol. ketoconazole (NIZORAL) 2 % shampoo Apply 1 application to affected area once daily as needed. triamterene-hydrochlorothiazide 37.5-25 mg per capsule Take 1 capsule by mouth once daily. By. Dr. Pompa metoprolol succinate ER (TOPROL XL) 25 mg 24 hr tablet Take 1 tablet by mouth twice daily. Per Dr. Gomez aspirin 81 mg chewable tablet Take 1 tablet by mouth once daily. clopidogrel (PLAVIX) 75 mg tablet Take 1 tablet by mouth once daily. lisinopril (ZESTRIL, PRINIVIL) 5 mg tablet Take 1 tablet by mouth once daily. nitroglycerin sublingual (NITROQUICK) 0.4 mg SL tablet Dissolve 1 tablet under the tongue every 5 minutes as needed for Chest Pain. cholecalciferol, vitamin D3, (VITAMIN D3) 4,000 unit cap Take 1 capsule by mouth once daily. MULTIVITAMIN ORAL Take by mouth. Sawyer-3 Fatty Acids-Vitamin E (FISH OIL) 1,000 mg cap Take 1 capsule by mouth once daily. LACTOBACILLUS ACIDOPHILUS (PROBIOTIC ORAL) Take 1 tablet by mouth once daily. CPAP No current facility-administered medications for this visit. ALLERGIES: Brilinta [Ticagrelor]; Keflex [Cephalexin]; Lipitor [Atorvastatin]; Lisinopril; Lovastatin; Beardsley [Hydrocodone-Acetaminophen] PERSONAL HISTORY: Social History Marital status: Spouse name: Kisha Years of education: 14 Number of children: 3 Occupational History Occupation Employer [employer] Social History Main Topics Smoking status: Former Smoker Packs/day: 1.50 Years: 3.00 Types: Cigarettes Quit date: 11/08/1994 Smokeless tobacco: Never Used Comment: smoked 3 years in mid 90s Alcohol use: No Drug use: No Sexual activity: Yes Partners with: Male Social History Narrative 3 children. 06/2011. 1st child suicide at 17. Remarried. FAMILY HISTORY: FAMILY HISTORY Problem Relation Age of Onset - other (Pancreatic cancer) Mother - Coronary Artery Disease Father 25 [place] @ 25. CABG - Diabetes Paternal Grandmother - Diabetes Maternal Grandfather - other (Lung cancer) Brother - other (suicide) Son may of been depression REVIEW OF SYMPTOMS: The review of systems data was entered by the nurse and reviewed by tx Nursing Notes: Cristobal Servando PADILLA 07/21/2018 8:25 AM Signed REVIEW OF SYSTEMS: General: The patient denies fatigue, denies weight loss, denies weight gain, denies feeling hot, and denies feelings of cold. Eyes: The patient denies glaucoma, denies eye injury/surgery, wears glasses or contacts. Ear/Nose/Throat: The patient NOTES allergies, NOTES hayfever, denies ear infections, and denies bloody noses. Cardiovascular: The patient denies chest pain, denies heart disease, NOTES high blood pressure,NOTES cardiac stent, denies prior heart attack, denies irregular heart beat, NOTES high cholesterol, denies poor circulation, denies heart failure, other cardiac issues, denies claudication, denies cold feet, denies peripheral arterial stent. Respiratory: The patient denies tuberculosis, NOTES pneumonia, denies frequent cough, denies pulmonary embolism, NOTES shortness of breath, and denies coughing up blood. Gastrointestinal: The patient denies difficulty swallowing, denies acid reflux, denies ulcers, denies vomiting, denies jaundice/hepatitis, denies gallbladder problems, denies black or tarry stools, NOTES hemorrhoids, denies bleeding from rectum, denies diverticulitis, NOTES constipation, denies diarrhea, denies loss of stool control, and denies hernias. Kidney/Bladder: The patient denies kidney stones, denies urine infections, and denies bloody urine. Skin: The patient denies a history of skin cancer, denies bleeding/changing moles, and denies a history of skin rash. Neurologic: The patient denies a history of epilepsy/convulsions, denies headaches, denies head/spinal injuries, and NOTES stroke/TIA. Psychiatric: The patient denies psychiatric medications, denies depression, and denies voices, denies substance abuse. Endocrine: The patient denies thyroid disorders, denies diabetes, and denies hormonal problems. Hematologic: The patient denies a history of bruising, denies bleeding, and denies anemia, denies blood clots. Infections: The patient NOTES a history of measles and mumps, denies rheumatic fever, and denies sexually transmitted diseases. Musculoskeletal: The patient NOTES back pain/injury, denies back problems, NOTES sciatica, NOTES knee/foot trouble, NOTES arthritis, or denies gout. I have confirmed and edited as necessary, the PFSH and ROS obtained by others. PHYSICAL EXAMINATION: General: The patient is 63 year old female, well nourished, well hydrated in no acute distress. The patient is oriented to time, place, and person. VITALS: Blood pressure 132/68, pulse 80. There is no height or weight on file to calculate BMI. HEENT: Normal cephalic, ataumatic, pupils are equally round, sclera are anicteric, mucous membranes are moist, oropharynx is clear. Neck has no masses, asymmetry or lymphadenopathy. Respiratory: Clear to auscultation and percussion. Normal respiratory excursion and pattern. Cardiac: Examination is regular rate and rhythm. Normal S1/S2 Abdominal exam: Soft, nontender, with no palpable masses. No hepatosplenomegaly. No palpable hernias. Rectal exam: exam deferred Extremities: no clubbing, cyanosis or edema. No adenopathy. Other: LABORATORY VALUES: As Noted RADIOLOGIC STUDIES: As Noted Assessment IMPRESSION: heme positive stool, recommend EGD/colonoscopy PLAN: We will plan for upper and lower endoscopy. We discussed the risks and benefits of the planned endoscopy. I have informed the patient that complications can occur including failure to complete the endoscopy and perforation. The patient had the opportunity to ask questions concerning the planned endoscopy. My staff has also explained the procedure to the patient in understandable terms and has given the patient printed material concerning the procedure. The patient freely consents to surgery. I plan to use golytely bowel preparation for endoscopy Patient may remain on her anticoagulation for the endoscopy as Dr. Wiley does not require this to be held She has been instructed to follow up with her PCP for instructions regarding her diabetic medications for the procedure Patient verbalized understanding of all above and agreed with the plan Diagnoses: (R19.5) Heme positive stool (primary encounter diagnosis) My findings have been communicated to Dr. Hung via shared medical record. This note will be forwarded to Dr. Clifton Hung MD. Return to Clinic: The patient is instructed to follow-up with me 1 week post operatively. I spent 30 minutes in the visit, with more than 50% of the total kcor-jc-svqs time of the visit in counseling / coordination of care. Seema Alicia PA-C Referring Provider: CLIFTON HUNG [[id number]] Allergies As of Date: 07/21/2018 Noted Allergy Reaction BRILINTA (TICAGRELOR) 06/28/2017 12 - Shortness of Breath KEFLEX (CEPHALEXIN) 02/02/2006 Comments: facial flushing LIPITOR (ATORVASTATIN) 07/21/2013 14 - Other: See Comments Comments: myalgia LISINOPRIL 07/21/2013 3 - Cough LOVASTATIN 07/21/2013 14 - Other: See Comments Comments: myalgia NORCO (HYDROCODONE-ACETAMINOPHEN) 10/29/2016 9 - Itching Date Reviewed: 07/21/2018 Reviewed by: Cristobal Al LPN - Fully Assessed Reason for Visit: Consult [173] Cmt: consult EGD Primary Visit Diagnosis:Heme positive stool [R19.5] Order(s):[] peg 3350-Electrolytes (GOLYTELY) 236-22.74-6.74 -5.86 gram suspensionTake 4,000 mL by mouth one time only for 1 dose.Disp: 1 BottleRfl: 0 EGD [[id number]] Order #: [id number] FUTURE COLONOSCOPY - DIAGNOSTIC [[id number]] Order #: [id number] FUTURE Prescriptions as of 07/21/2018 Sig: MONTELUKAST 10 MG TABLET Take 10 mg by mouth daily at * DOXYCYCLINE HYCLATE 50 MG TAB* Take by mouth. METFORMIN 500 MG TABLET TAKE ONE TABLET BY MOUTH AFTE* TRULICITY 0.75 MG/0.5 ML SUBC* INJECT 0.75 MG SUBCUTANEOUSLY* ATORVASTATIN 40 MG TABLET Take 1 tablet by mouth daily * KETOCONAZOLE 2 % SHAMPOO Apply 1 application to affect* TRIAMTERENE 37.5 MG-HYDROCHLO* Take 1 capsule by mouth once * METOPROLOL SUCCINATE ER 25 MG* Take 1 tablet by mouth twice * ASPIRIN 81 MG CHEWABLE TABLET Take 1 tablet by mouth once d* CLOPIDOGREL 75 MG TABLET Take 1 tablet by mouth once d* LISINOPRIL 5 MG TABLET Take 1 tablet by mouth once d* NITROGLYCERIN 0.4 MG SUBLINGU* Dissolve 1 tablet under the t* CHOLECALCIFEROL (VITAMIN D3) * Take 1 capsule by mouth once * MULTIVITAMIN ORAL Take by mouth. OMEGA-3 FATTY ACIDS-VITAMIN E* Take 1 capsule by mouth once * PROBIOTIC ORAL Take 1 tablet by mouth once d* * CPAP PEG 3350-ELECTROLYTES 236 GRA* Take 4,000 mL by mouth one ti* Problem List As Of Date 07/21/2018 Noted Resolved Mixed hyperlipidemia [E78.2] INVALID FOR* Priority: A More... Obstructive sleep apnea on CPAP [G47.33, Z99.89] Priority: B More... Scalp itch [L29.9] Priority: D Seasonal allergies [J30.2] Priority: B More... History of depression [Z86.59] Priority: B More... More... Arthritis [M19.90] Priority: M More... Rosacea [L71.9] Priority: D More... History of hyperparathyroidism [Z86.39] Priority: B More... 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 Diabetic eye exam (HCC) [Z01.00, E11.9] INVALID FOR* Priority: A More... Well adult exam [Z00.00] INVALID FOR* Priority: E More... Colon cancer screening [Z12.11] INVALID FOR* Controlled type 2 diabetes mellitus without com*INVALID FOR* Priority: A Atherosclerosis of [place] coronary artery with *INVALID FOR* Priority: A More... S/P angioplasty with stent [Z95.9] INVALID FOR* Priority: A More... Meniere disease, right [H81.01] INVALID FOR* Priority: B Amaurosis fugax [G45.3] INVALID FOR* Priority: A More... Garibay's cyst of knee, left [M71.22] INVALID FOR* Priority: M Visit Notes: >> Cristobal Al FITTER'S ASSISTANT Mary Jul 21, 2018 8:25 AM Status: Signed REVIEW OF SYSTEMS: General: The patient denies fatigue, denies weight loss, denies weight gain, denies feeling hot, and denies feelings of cold. Eyes: The patient denies glaucoma, denies eye injury/surgery, wears glasses or contacts. Ear/Nose/Throat: The patient NOTES allergies, NOTES hayfever, denies ear infections, and denies bloody noses. Cardiovascular: The patient denies chest pain, denies heart disease, NOTES high blood pressure,NOTES cardiac stent, denies prior heart attack, denies irregular heart beat, NOTES high cholesterol, denies poor circulation, denies heart failure, other cardiac issues, denies claudication, denies cold feet, denies peripheral arterial stent. Respiratory: The patient denies tuberculosis, NOTES pneumonia, denies frequent cough, denies pulmonary embolism, NOTES shortness of breath, and denies coughing up blood. Gastrointestinal: The patient denies difficulty swallowing, denies acid reflux, denies ulcers, denies vomiting, denies jaundice/hepatitis, denies gallbladder problems, denies black or tarry stools, NOTES hemorrhoids, denies bleeding from rectum, denies diverticulitis, NOTES constipation, denies diarrhea, denies loss of stool control, and denies hernias. Kidney/Bladder: The patient denies kidney stones, denies urine infections, and denies bloody urine. Skin: The patient denies a history of skin cancer, denies bleeding/changing moles, and denies a history of skin rash. Neurologic: The patient denies a history of epilepsy/convulsions, denies headaches, denies head/spinal injuries, and NOTES stroke/TIA. Psychiatric: The patient denies psychiatric medications, denies depression, and denies voices, denies substance abuse. Endocrine: The patient denies thyroid disorders, denies diabetes, and denies hormonal problems. Hematologic: The patient denies a history of bruising, denies bleeding, and denies anemia, denies blood clots. Infections: The patient NOTES a history of measles and mumps, denies rheumatic fever, and denies sexually transmitted diseases. Musculoskeletal: The patient NOTES back pain/injury, denies back problems, NOTES sciatica, NOTES knee/foot trouble, NOTES arthritis, or denies gout. Prescriptions ordered this encounter Disp Refills Start End PEG 3350-ELECTROLYTES 236 GRAM-22.74* 1 Jorge* 0 07/21/2018 07/21/2018 Route: ORAL Sig: Take 4,000 mL by mouth one time only for 1 dose. Follow-up and Disposition History Recorded Encounter Status:Closed by SEEMA ALICIA PA-C on 07/22/18 [facility] Observed: 07/21/2018 Status: COMPLETED Source: [place] 12:00 [facility] REPOSITORY Letter Text Department of General Surgery Dr.Richard Wiley [address], [place] [address] 07/21/2018 TO WHOM IT MAY CONCERN: This is to confirm that Dom Barba had an appointment and was seen at the [facility] in the Department of General Surgery by Dr.Richard Wiley on 07/21/2018. Dom will be scheduled for a procedure on 08/09/2018 and will need to pre for the procedure on 08-08-2018. May return to work on 08-10-2018. Sincerely yours, Dr.Richard Wiley HOSP Observed: 07/21/2018 Status: COMPLETED Source: [place] 12:00 [facility] REPOSITORY Patient:Dom Barba MRN: <[id number]> Height:5' 3(1.6 m) Weight:165 lb (74.844 kg) Outpatient Medications as of 08/09/18: montelukast (SINGULAIR) 10 mg tablet doxycycline hyclate 50 mg tab metFORMIN (GLUCOPHAGE) 500 mg tablet TRULICITY 0.75 mg/0.5 mL pnij ketoconazole (NIZORAL) 2 % shampoo triamterene-hydrochlorothiazide 37.5-25 mg per capsule metoprolol succinate ER (TOPROL XL) 25 mg 24 hr tablet aspirin 81 mg chewable tablet clopidogrel (PLAVIX) 75 mg tablet lisinopril (ZESTRIL, PRINIVIL) 5 mg tablet nitroglycerin sublingual (NITROQUICK) 0.4 mg SL tablet cholecalciferol, vitamin D3, (VITAMIN D3) 4,000 unit cap MULTIVITAMIN ORAL Sawyer-3 Fatty Acids-Vitamin E (FISH OIL) 1,000 mg cap LACTOBACILLUS ACIDOPHILUS (PROBIOTIC ORAL) CPAP Admission/Clinic Administered Medications as of 08/09/18: lactated ringers infusion Problem List: Mixed hyperlipidemia [E78.2] Obstructive sleep apnea on CPAP [G47.33, Z99.89] Scalp itch [L29.9] Seasonal allergies [J30.2] History of depression [Z86.59] Arthritis [M19.90] Rosacea [L71.9] History of hyperparathyroidism [Z86.39] Female pattern hair loss [L65.8] Colon polyp [K63.5] Vitamin D deficiency [E55.9] Essential hypertension [I10] Encounter for gynecological examination without abnormal finding [Z01.419] Narcolepsy without cataplexy(347.00) [G47.419] Diabetic eye exam (HCC) [Z01.00, E11.9] Well adult exam [Z00.00] Colon cancer screening [Z12.11] Controlled type 2 diabetes mellitus without complication, without long-term current use of insulin (HCC) [E11.9] Atherosclerosis of [place] coronary artery with stable angina pectoris (HCC) [I25.118] S/P angioplasty with stent [Z95.9] Meniere disease, right [H81.01] History of transient ischemic attack (TIA) [Z86.73] Garibay's cyst of knee, left [M71.22] Allergies: Brilinta [Ticagrelor] Keflex [Cephalexin] Lipitor [Atorvastatin] Lisinopril Lovastatin Beardsley [Hydrocodone-Acetaminophen] Date Verified: 08/09/18 Lab Values No results within the last 30 days for the following basenames: K,HCT Progress Notes ([facility]): Corine Darling MD 08/02/2018 9:09 AM Signed [facility] Initial Office Visit Consultation is requested by: Clifton Hung MD [address] [facility] [id number] PCP: Clifton Hung MD [facility] [place] [address] CEREBROVASCULAR HISTORY History of Recent Event: Dom Barba is a 63 year old female who presents for evaluation of TIA. Reason for visit: evaluation - PCP recommended follow up with stroke dr. Date of last event: Jun 2017 History of event: onset vision loss R eye lasting about 20 minutes. Also reports feeling not right having difficulty focusing, using computer. Taken to [facility] in [facility] sent her to [facility] Antiplatelet, Anticoalulant, Statin: Aspirin and Clopidogrel Side effects : Yes- work up in progress for Heme positive stool. Has tried Atorvastatin and Pravastatin - both caused myalgias Refills needed: No Residual deficits: No residual deficits PT/OT/ST: No therapy needs Disposition: Home Next phase of care: Not Applicable Interval history: No new stroke symptoms. Will have occasional dizziness - mostly noted with position changes. Difficulty with vision - (focusing) when she is fatigued. Plavix is currently on hold since Wednesday in prep for upper and lower GI. Questions for visit: explain what the imaging report means Staff Intake: *Reviewed above and agree with notation. See below for confirmation/additional information* ? *TIA 06/29/2017 --Though in some notes, mention of R eye disturbance or amaurosis fugax, pt tells me that it wasn't that she couldn't see out of her R eye, but while she was at work, she could not see the entire R half of one of her coworkers - this is more c/w R HH; she also states that she was having a hard time understanding what people were saying to her and could not input words into the computer though she was able to speak which fits with potential receptive aphasia. She does also mention that one side of her was numb, but could not remember which. Taking all of this into account, localization would fit with inferior division MCA TIA/stroke. --Taken to [place] where MRI/A showed some chronic small vessel disease (most notable L frontal region on my review), but no stroke, no LVO --Improved back to baseline within hours and was Dc'd home with no residual deficits --Kept on DAPT (was on for CAD with PCI 12/2016) --TTE 65% EF with no shunting or LA dilation --No current issues or complaints, just never f/u with neuro, so here today for check *Menieres --Hearing loss R>L and vertigo; has improved a great deal with HCTZ *HPL --LDL in 02/2018 was 63, so well controlled despite statin intolerance (myalgias with atorva and lova); see below for thoughts *DM --Most recent A1c 6.8 *SEBAS --Uses CPAP regularly ? *H/o Shingles 2016 --Improved with valacyclovir --Does noticed intermittent R occipital tenderness and pain - likely lymph node PAST MEDICAL HISTORY Diagnosis Date - Amaurosis fugax 10/29/2017 TIA; right visual disturbance 06/2017 - Arthritis tendonitis, arthritis - Atherosclerosis of [place] coronary artery with stable angina pectoris (HCC) 01/09/[address] Gomez - Garibay's cyst of knee, left 03/02/2018 - Colon polyp 2011 - Diabetes mellitus type 2, controlled, without complications ([facility]) - Essential hypertension 01/16/2016 - Female pattern hair loss - History of depression when - History of hyperparathyroidism - Mixed hyperlipidemia 05/31/2009 statin intolerance - Obstructive sleep apnea on CPAP Sibilia - Psoriasis - Rosacea with ocular symptoms - S/P angioplasty with stent 01/09/2017 stents to mid and proximal left anterior descending Art, and angio of ostium of #2 diagonal - Scalp itch - Seasonal allergies Dr Pompa - TIA (transient ischemic attack) 06/2017 - Vitamin D deficiency 2012 PAST SURGICAL HISTORY Procedure Laterality Date - 2D ECHO (EXEP) 06/30/2017 EF=65%, trivial [place], TI and 1+ PI Unchanged from 04/2017 - BUNIONECTOMY, LAPIDUS-TYPE 2009 left great toe - DELIVERY ONLY - COLONOSCOPY 08/07/15 no polyps, recheck 3-5 yrs - COLONOSCOPY AND POLYPECTOMY 10/12, 10/13 Dr Barba; hyperplastic polyps - HEART CATHETERIZATION 2004 heart cath-normal per patient - HEART CATHETERIZATION 01/04/2017 EF=60%, left anterior desending septal perferator 95-99% stenosis and diagonal branch 85% stenosis, - LOW BACK DISK SURGERY 2010 microdecompression L4 L5 - PAST SURGICAL HISTORY OF 2004 parathyroidectomy x1 - PAST SURGICAL HISTORY OF lipoma x2 - PAST SURGICAL HISTORY OF 10/13 left foot surgery (bone cyst in heel, removed) - PAST SURGICAL HISTORY OF 2014 bilateral carpel tunnel - PAST SURGICAL HISTORY OF Right 10/2016 trigger finger release x2 - REMOVAL GALLBLADDER 2004 Cholecystectomy - STENT PLACEMENT 01/06/2017 stents to mid and proximal left anterior descending Art, and angio of ostium of #2 diagonal - STRESS TEST 04/20/2017 WNL - TOTAL ABDOM HYSTERECTOMY 1995 LEDA for benign fibroid, ovaries intact FAMILY HISTORY Problem Relation Age of Onset - other (Pancreatic cancer) Mother - Coronary Artery Disease Father 25 [place] @ 25. CABG - Diabetes Paternal Grandmother - Diabetes Maternal Grandfather - other (Lung cancer) Brother - other (suicide) Son may of been depression Social History Marital status: Spouse name: Kisha Years of education: 14 Number of children: 3 Occupational History Occupation Employer Comment [employer] Social History Main Topics Smoking status: Former Smoker Packs/day: 1.50 Years: 3.00 Types: Cigarettes Quit date: 11/08/1994 Smokeless tobacco: Never Used Comment: smoked 3 years in mid 90 Alcohol use: No Drug use: No Sexual activity: Yes Partners with: Male Social History Narrative 3 children. 06/2011. 1st child suicide at 17. Remarried. Current Outpatient Prescriptions: montelukast (SINGULAIR) 10 mg tablet Take 10 mg by mouth daily at bedtime. doxycycline hyclate 50 mg tab Take by mouth. metFORMIN (GLUCOPHAGE) 500 mg tablet TAKE ONE TABLET BY MOUTH AFTER BREAKFAST AND TWO TABLETS AFTER DINNER TRULICITY 0.75 mg/0.5 mL pnij INJECT 0.75 MG SUBCUTANEOUSLY ONCE EACH WEEK ketoconazole (NIZORAL) 2 % shampoo Apply 1 application to affected area once daily as needed. triamterene-hydrochlorothiazide 37.5-25 mg per capsule Take 1 capsule by mouth once daily. By. Dr. Pompa metoprolol succinate ER (TOPROL XL) 25 mg 24 hr tablet Take 1 tablet by mouth twice daily. Per Dr. Gomez aspirin 81 mg chewable tablet Take 1 tablet by mouth once daily. clopidogrel (PLAVIX) 75 mg tablet Take 1 tablet by mouth once daily. lisinopril (ZESTRIL, PRINIVIL) 5 mg tablet Take 1 tablet by mouth once daily. nitroglycerin sublingual (NITROQUICK) 0.4 mg SL tablet Dissolve 1 tablet under the tongue every 5 minutes as needed for Chest Pain. cholecalciferol, vitamin D3, (VITAMIN D3) 4,000 unit cap Take 1 capsule by mouth once daily. MULTIVITAMIN ORAL Take by mouth. Sawyer-3 Fatty Acids-Vitamin E (FISH OIL) 1,000 mg cap Take 1 capsule by mouth once daily. LACTOBACILLUS ACIDOPHILUS (PROBIOTIC ORAL) Take 1 tablet by mouth once daily. CPAP atorvastatin (LIPITOR) 40 mg tablet Take 1 tablet by mouth daily at bedtime. For cholesterol. No current facility-administered medications for this visit. MEDICATIONS Current Outpatient Prescriptions: montelukast (SINGULAIR) 10 mg tablet Take 10 mg by mouth daily at bedtime. Disp: Rfl: doxycycline hyclate 50 mg tab Take by mouth. Disp: Rfl: metFORMIN (GLUCOPHAGE) 500 mg tablet TAKE ONE TABLET BY MOUTH AFTER BREAKFAST AND TWO TABLETS AFTER DINNER Disp: 270 tablet Rfl: 3 TRULICITY 0.75 mg/0.5 mL pnij INJECT 0.75 MG SUBCUTANEOUSLY ONCE EACH WEEK Disp: 12 Pen Rfl: 1 ketoconazole (NIZORAL) 2 % shampoo Apply 1 application to affected area once daily as needed. Disp: 120 mL Rfl: 1 triamterene-hydrochlorothiazide 37.5-25 mg per capsule Take 1 capsule by mouth once daily. By. Dr. Pompa Disp: Rfl: metoprolol succinate ER (TOPROL XL) 25 mg 24 hr tablet Take 1 tablet by mouth twice daily. Per Dr. Gomez Disp: Rfl: aspirin 81 mg chewable tablet Take 1 tablet by mouth once daily. Disp: Rfl: 0 clopidogrel (PLAVIX) 75 mg tablet Take 1 tablet by mouth once daily. Disp: Rfl: lisinopril (ZESTRIL, PRINIVIL) 5 mg tablet Take 1 tablet by mouth once daily. Disp: 30 tablet Rfl: 0 nitroglycerin sublingual (NITROQUICK) 0.4 mg SL tablet Dissolve 1 tablet under the tongue every 5 minutes as needed for Chest Pain. Disp: 1 Bottle of 25 Rfl: 0 cholecalciferol, vitamin D3, (VITAMIN D3) 4,000 unit cap Take 1 capsule by mouth once daily. Disp: Rfl: 0 MULTIVITAMIN ORAL Take by mouth. Disp: Rfl: Sawyer-3 Fatty Acids-Vitamin E (FISH OIL) 1,000 mg cap Take 1 capsule by mouth once daily. Disp: Rfl: LACTOBACILLUS ACIDOPHILUS (PROBIOTIC ORAL) Take 1 tablet by mouth once daily. Disp: Rfl: CPAP Disp: Rfl: 0 atorvastatin (LIPITOR) 40 mg tablet Take 1 tablet by mouth daily at bedtime. For cholesterol. Disp: 90 tablet Rfl: 1 No current facility-administered medications for this visit. REVIEW OF SYSTEMS ALLERGIES Allergen Reactions - Brilinta [Ticagrelo* Shortness of Breath - Keflex [Cephalexin] facial flushing - Lipitor [Atorvastat* Other: See Comments myalgia - Lisinopril Cough - Lovastatin Other: See Comments myalgia - Beardsley [Hydrocodone-* Itching Review of Systems Constitutional Positive for Fatigue Eyes: Negative Hent Positive for Hearing Loss (Minears R ear) Negative for Tinnitus Cardiovascular Positive for Lightheadedness Respiratory (SEBAS- cpap) GI Positive for Blood in Stool Negative for Nausea/Vomiting Negative for Urgency and Incontinence Endocrine Negative for Excessive Thirst Musculoskeletal Negative for Back Pain and Muscle Pain Integumentary Negative for Rashes Heme/Lymph Positive for Easy Bruising Negative for Prolonged Bleeding Allergy/Immunologic: Negative Neurologic Negative for Memory Problems, Headache and Numbness/Tingling Psychiatric Negative for Depression and Anxiety Patient's Review of Systems has been reviewed with the patient and updated as appropriate. PHYSICAL EXAMINATION BP 114/75 (BP Site: Right Arm, BP Position: Sitting, BP Cuff Size: Regular Adult) Pulse 76 Resp 18 Ht 160 cm (5' 3) Wt 74.8 kg (165 lb) BMI 29.23 kg/m? General: Well-developed, well-nourished, in no acute distress. HEENT: Normocephalic, atraumatic. Sclerae anicteric. Oropharynx clear. Neck: No carotid bruit. Heart: Regular rate and rhythm, S1 S2, no murmurs. Lungs: Clear to auscultation bilaterally. Abdomen: Abdomen soft, non-tender. Extremities: No edema, cyanosis, or clubbing. 2+ dorsalis pedis pulses bilaterally. Skin: No rash or ecchymoses. Neurological: Awake, alert, oriented to person, place, and time. Speech fluent, no dysarthria. Naming, repetition, recall, comprehension, calculation intact. Good attention and insight into illness. Cranial Nerves: PERRL, extraocular movements intact without nystagmus. Visual harvey full. Fundoscopic examination normal with sharp optic discs bilaterally. Facial sensation and movements normal and symmetric. Palate elevates equal bilaterally. Tongue midline. Trapezius strength 5/5 bilaterally. Motor: Normal bulk and tone. Strength 5/5 throughout. No pronator drift or tremor. Sensation: Intact light touch, pinprick, temperature, proprioception, and vibration. Coordination: Rapid alternating movements symmetric bilaterally. [id number], [id number] without dysmetria bilaterally. Reflexes: 2+ reflexes symmetric bilaterally. Plantar response is flexor bilaterally. Gait: Narrow-based, normal spaced and stable without assistance. Tandem gait is stable. LABS Cholesterol: Cholesterol, Total (mg/dL) Date Value 02/25/2018 116 LDL Cholesterol (mg/dL) Date Value 02/25/2018 63 HDL Cholesterol (mg/dL) Date Value 02/25/2018 34 Triglyceride (mg/dL) Date Value 02/25/2018 93 Diabetes: Hemoglobin A1C (%) Date Value 02/25/2018 6.8 IMAGING See above in HPI CEREBROVASCULAR CATEGORIES Transient Ischemic Attack- Probable, not associated with acute imaging findings (imaging may/may not have been done). IMPRESSION AND RECOMMENDATIONS: Dom Barba is a 63yo RH woman with PMHx significant for HTN, HPL, DM2, CAD s/p PCI 12/2016 on DAPT, SEBAS, Menieres who is seen in the office for f/u TIA 06/29/2017. Symptoms c/w R HH, R sided numbness, receptive aphasia all resolving within hours and MRI/A unrevealing for acute stroke or LVO/high grade stenoses. No residual symptoms and NIHSS today 0. 1. TIA - likely inferior MCA territory --No residual symptoms or recurrent episodes --Ongoing RF modification, as below 2. HTN 3. HPL 4. DM2 --All 3 above fairly well controlled; would continue current medications; we discussed that if LDL >70, consider trial of Crestor 5mg every other night - if still with myalgias and needing HPL management, could consider PCSK9 inhibitor --A1c a bit higher than target 5. CAD s/p PCI 12/2016 --DIscussed from cerebrovascular standpoint, does not necessarily need to be maintained on DAPT unless needing to stay on from cardiovascular reasons; monotherapy with either would be fine from my standpoint 6. SEBAS --Continue CPAP 7. Meniere's Disease --Doing well on HCTZ combo pill AChey Darling MD Staff, Vascular Neurology August 02, 2018 9:08 AM CC Clifton Hung MD [address] [facility] [address] Clifton Hung MD [address] [place] [address] Previous Version Corine Darling MD 08/02/2018 8:36 AM Signed Regarding your visit with Dr. Darling and Nurse Yoav Lange today at the [facility] we discussed the following: *TIA 06/2017; resolved --Continue current medications --No indication for statin at this time, but can try Crestor 5mg every other night if needed in future --Continue ASA + Plavix for now, but if no cardiac indication, would be okay with monotherapy with either from stroke standpoint -Regular follow up with primary care doctor for health maintenance -Assist ensuring blood pressure and cholesterol are at goal -Screen and manage diabetes -Lifestyle modification -- Establish goals -Diet -Regular Exercise as discussed -Establish weight goals with primary care doctor -Additional stroke reduction measures and stroke warning signs are listed below. Please do not hesitate to call if you have any questions Marck Darling MD [facility] [address] [place] [address] / [place] [address] Office: [phone] ~~~~~~~~~~~~~~~~~~~~~~~~~~~~~~~~~~~~~~~~~~~~~~~~~~~~~~~~~~~~~~~~~~~~~~~~ Stroke Signs and Symptoms: *Stroke is a medical emergency. Know the warning signs of stroke: Sudden numbness or weakness of the face, arm or leg, especially on one side of the body Sudden confusion, trouble speaking, or understanding Sudden trouble seeing in one eye, or both eyes Sudden trouble walking, dizziness, loss of balance, or coordination Sudden severe headache with no known cause *If you, or someone with you, has one or more of these signs, don't delay! Immediately call 911, or the emergency medical services (EMS) number so an ambulance can be sent for you. Also, check the time so that you will know when the symptoms first appeared. It is very important to take immediate action, every second counts. Medical treatment may be available if action is taken early enough. ~~~~~~~~~~~~~~~~~~~~~~~~~~~~~~~~~~~~~~~~~~~~~~~~~~~~~~~~~~~~~~~~~~~~~~~~ General Guidelines to Help Reduce Risk of Recurrent Stroke Blood Pressure Management: Blood Pressure reduction is recommended for both prevention of recurrent stroke and prevention of other vascular events in persons who have had an ischemic stroke or TIA and are beyond the first 24 hours. Several lifestyle modifications have been associated with BP reduction and are a reasonable part of a comprehensive antihypertensive therapy -These modifications include: - salt restriction - weight loss - consumption of a diet rich in fruits, vegetables, and low- fat dairy products - Regular aerobic physical activity - Limited alcohol consumption Goal: Prehypertension (systolic BP of 120-139 mm Hg or diastolic BP of 80-89 mm Hg): Perform annual BP screening and lifestyle modifications Hypertension: Combine medications with above lifestyle modifications to reach your goal blood pressure as defined above. Monitor your blood pressure at home regularly to ensure you are reaching your goals Cholesterol and Lipid Management - Statin therapy with intensive lipid-lowering effects is recommended to reduce risk of stroke and cardiovascular events among patients with ischemic stroke or TIA who have evidence of atherosclerosis Diet: - Reduced sodium and increased potassium intake; DASH-style diet rich in fruits and vegetables - Consider Mediterranean diet supplemented with nuts Smoking and Tobacco Use: - Strongly recommend smoking and tobacco use cessation to reduce risk of stroke. - Counseling, nicotine products, and oral smoking cessation medications are effective for helping smokers quit and can be provided if needed. Alcohol Consumption: - Heavy drinkers should eliminate or reduce their consumption of alcohol. - Persons who continue drinking the following may be reasonable: - less than or equal to 2 drinks/day for men - less than or equal to 1 drink/day for non women Exercise - If capable of engaging in physical activity, at least 40 minutes of moderate to vigorous intensity physical exercise, typically defined as vigorous activity sufficient to break a sweat or noticeably raise heart rate, 3-4 days a week (eg, walking briskly, using an exercise bicycle) may be considered to reduce the risk factors and comorbid conditions that increase the likelihood of recurrent stroke - If disability after ischemic stroke, supervision by a healthcare professional, such as a physical therapist or cardiac rehabilitation professional, at least on initiation of an exercise regimen, may be considered Adopted from the [place] [employer] Attack : A Guideline for Healthcare Professionals From the [place] [employer] Guidelines for the Prevention of Stroke in Patients With Stroke or Transient Ischemic Progress Notes ([facility]): Yoav Lange, RN, RN 07/26/2018 1:42 PM Signed Called pt with reminder to bring brain, head, neck imaging on disc to 07/[address] Darling No answer LM on Yoav Lange RN CNCO Observed: 07/04/2018 Status: COMPLETED Source: [place] 12:00 AM [facility] REPOSITORY Letter Text Department of General Surgery Dr.Richard Aisha Brand [address] [place], [place] [address] 07/04/2018 TO Dom Barba, We have been updating our records and realized that you were going to have a colonoscopy last year but because of your TIA and use of blood thinners for that problem the procedure was put on hold. If you have since had the procedure , we would like to document that in your record or if you would like to now schedule it, we would be happy to assist you. Please call our office at [phone] at your convenience. Sincerely yours, Dr. Augustine Abreu RN CNOV Observed: 06/13/2018 Status: COMPLETED Source: [place] 8:00 AM [facility] REPOSITORY Office Visit (FAMPWS) DOM BARBA ([id number]) 1955 F Date Time Provider Department 06/13/18 8:00 AM GABY NICHOLSON ([facility] During your visit today, we recorded the following information about you: Pulse Respiration Blood pressure Weight 60/minute 18/minute 130/82 75.4 kg Gaby Nicholson APRN.ELIZABETH 06/13/2018 8:33 AM Signed HPI/CC: Dom Barba is a 62 year old female who presents to the office today for ER follow-up. She was to [facility] on 06/06[facility]18 following c/o swollen lymph node and scalp pain. Dx: Shingles Testing completed at the facility: none Labwork completed at the facility: none Other specialist and follow up care: none On 06/06 in the morning, woke with swollen right lymph node and scalp pain. Refers that she actually noticed the day prior, that the arm of her eye glasses was uncomfortable against her scalp. Went to work. 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 Went to the ER, because of the swollen lymph node and extreme tenderness to light tough to the scalp (no lesions present yet), she was dx with shingles and started on valtrex (1 gram three times daily X 7 days). Took last valtrex this morning. Refers that it feels much better. Refers that she's been having red/itchy eyes d/t allergies. 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 Not taking anything. 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 Gomez - Garibay's cyst of knee, left 03/02/2018 - Colon polyp 2011 - Diabetes mellitus type 2, controlled, without complications (HCC) - Essential hypertension 01/16/2016 - Female pattern hair loss - History of depression when - History of hyperparathyroidism - Mixed hyperlipidemia 05/31/2009 statin intolerance - Obstructive sleep apnea on CPAP Sibilia - Psoriasis - Rosacea with ocular symptoms - S/P angioplasty with stent 01/09/2017 stents to mid and proximal left anterior descending Art, and angio of ostium of #2 diagonal - Scalp itch - Seasonal allergies Dr Pompa - TIA (transient ischemic attack) 06/2017 - Vitamin D deficiency 2012 PAST SURGICAL HISTORY Procedure Laterality Date - 2D ECHO (EXEP) 06/30/2017 EF=65%, trivial [place], TI and 1+ PI Unchanged from 04/2017 - BUNIONECTOMY, LAPIDUS-TYPE 2010 left great toe - DELIVERY ONLY - COLONOSCOPY 08/07/15 no polyps, recheck 3-5 yrs - COLONOSCOPY AND POLYPECTOMY 10/12, 10/13 Dr Barba; hyperplastic polyps - HEART CATHETERIZATION 2004 heart cath-normal per patient - HEART CATHETERIZATION 01/04/2017 EF=60%, left anterior desending septal perferator 95-99% stenosis and diagonal branch 85% stenosis, - LOW BACK DISK SURGERY 2009 microdecompression L4 L5 - PAST SURGICAL HISTORY OF 2004 parathyroidectomy x1 - PAST SURGICAL HISTORY OF lipoma x2 - PAST SURGICAL HISTORY OF 10/13 left foot surgery (bone cyst in heel, removed) - PAST SURGICAL HISTORY OF 2014 bilateral carpel tunnel - PAST SURGICAL HISTORY OF Right 10/2016 trigger finger release x2 - REMOVAL GALLBLADDER 2004 Cholecystectomy - STENT PLACEMENT 01/06/2017 stents to mid and proximal left anterior descending Art, and angio of ostium of #2 diagonal - STRESS TEST 04/20/2017 WNL - TOTAL ABDOM HYSTERECTOMY 1995 LEDA for benign fibroid, ovaries intact FAMILY HISTORY Problem Relation Age of Onset - Pancreatic cancer [OTHER] Mother - Coronary Artery Disease Father 25 [place] @ 25. CABG - Diabetes Paternal Grandmother - Diabetes Maternal Grandfather - Lung cancer [OTHER] Brother - suicide [OTHER] Son may of been depression Social History Marital status: Spouse name: Kisha Years of education: 14 Number of children: 3 Occupational History Occupation Employer [employer] Social History Main Topics Smoking status: Former Smoker Packs/day: 1.50 Years: 3.00 Types: Cigarettes Quit date: 11/08/1994 Smokeless tobacco: Never Used Comment: smoked 3 years in mid 90s Alcohol use: No Drug use: No Sexual activity: Yes Partners with: Male Social History Narrative 3 children. 06/2011. 1st child suicide at 17. Remarried. Current Outpatient Prescriptions on File Prior to Visit: metFORMIN (GLUCOPHAGE) 500 mg tablet TAKE ONE TABLET BY MOUTH AFTER BREAKFAST AND TWO TABLETS AFTER DINNER TRULICITY 0.75 mg/0.5 mL pnij INJECT 0.75 MG SUBCUTANEOUSLY ONCE EACH WEEK atorvastatin (LIPITOR) 40 mg tablet Take 1 tablet by mouth daily at bedtime. For cholesterol. ketoconazole (NIZORAL) 2 % shampoo Apply 1 application to affected area once daily as needed. triamterene-hydrochlorothiazide 37.5-25 mg per capsule Take 1 capsule by mouth once daily. By. Dr. Pompa metoprolol succinate ER (TOPROL XL) 25 mg 24 hr tablet Take 1 tablet by mouth twice daily. Per Dr. Gomez aspirin 81 mg chewable tablet Take 1 tablet by mouth once daily. clopidogrel (PLAVIX) 75 mg tablet Take 1 tablet by mouth once daily. lisinopril (ZESTRIL, PRINIVIL) 5 mg tablet Take 1 tablet by mouth once daily. nitroglycerin sublingual (NITROQUICK) 0.4 mg SL tablet Dissolve 1 tablet under the tongue every 5 minutes as needed for Chest Pain. cholecalciferol, vitamin D3, (VITAMIN D3) 4,000 unit cap Take 1 capsule by mouth once daily. MULTIVITAMIN ORAL Take by mouth. Sawyer-3 Fatty Acids-Vitamin E (FISH OIL) 1,000 mg cap Take 1 capsule by mouth once daily. LACTOBACILLUS ACIDOPHILUS (PROBIOTIC ORAL) Take 1 tablet by mouth once daily. CPAP No current facility-administered medications on file prior to visit. ALLERGIES Allergen Reactions - Brilinta [Ticagrelo* Shortness of Breath - Keflex [Cephalexin] facial flushing - Lipitor [Atorvastat* Other: See Comments myalgia - Lisinopril Cough - Lovastatin Other: See Comments myalgia - Beardsley [Hydrocodone-* Itching PHYSICAL EXAMINATION: BP 130/82 (BP Site: Left Arm, BP Position: Sitting, BP Cuff Size: Regular Adult) Pulse 60 Resp 18 Wt 75.4 kg (166 lb 1.9 oz) BMI 29.43 kg/m? General appearance: Well appearing, alert, in no acute distress, well-hydrated, well nourished. Skin: Skin color, texture, turgor normal. Right scalp with a some mild redness and few small scattered scabbed areas. No s/s of infection. Head: Normocephalic, no masses, lesions, tenderness or abnormalities Eyes: Anicteric sclera. Eyes red. Pupils are equally round and reactive to light. Extraocular movements are intact. No drainage. Ears: External ears normal, canals clear, TM's normal Oropharynx: Lips, mucosa, and tongue normal, teeth and gums normal, oropharynx normal Neck: Supple, no adenopathy; thyroid symmetric, normal size Lungs: Lungs clear to auscultation. No wheezing, rhonchi, rales, Lungs clear to auscultation. No wheezing, rhonchi, rales Heart: RRR without murmur, gallop, or rubs. No ectopy Abdomen: Abdomen soft, non-tender. Bowel sounds normal. No masses, organomegaly Extremities: No deformities, edema, skin discoloration, clubbing or cyanosis. Good capillary refill. Peripheral pulses: Normal Neuro: Gait normal. Reflexes normal and symmetric. Sensation grossly intact. ASSESSMENT/PLAN: 1. Herpes zoster without complication - ICD9: 053.9, ICD10: B02.9 (primary diagnosis) Finished valtrex this morning. Feels much better. No s/s of infection. Continue to monitor. 2. Environmental allergies - ICD9: V15.09, ICD10: Z91.09 Can use plain claritin or cadence as needed. Discussed treatment plan and patient voices understanding. Patient's questions answered appropriately. Medications and potential side effects were discussed and patient voices understanding. Return to the office as scheduled or as needed for worsening/no improvement. Gaby Nicholson APRN.ELIZABETH Nicholson APRN.ELIZABETH 06/13/2018 8:12 AM Signed 1. Can start claritin (loratadine) daily to help with itchy eyes. 2. Continue to monitor scalp, if any changes, please let us know. Referring Provider: SELF [[id number]] Allergies As of Date: 06/13/2018 Noted Allergy Reaction BRILINTA (TICAGRELOR) 06/28/2017 12 - Shortness of Breath KEFLEX (CEPHALEXIN) 02/02/2006 Comments: facial flushing LIPITOR (ATORVASTATIN) 07/21/2013 14 - Other: See Comments Comments: myalgia LISINOPRIL 07/21/2013 3 - Cough LOVASTATIN 07/21/2013 14 - Other: See Comments Comments: myalgia NORCO (HYDROCODONE-ACETAMINOPHEN) 10/29/2016 9 - Itching Date Reviewed: 06/13/2018 Reviewed by: Kat Caro FITTER'S ASSISTANT - Fully Assessed Reason for Visit: ER F/U [41] Cmt: f/up from shingles Primary Visit Diagnosis:Herpes zoster without complication [B02.9] Other Visit Diagnosis:Environmental allergies [Z91.09] Prescriptions as of 06/13/2018 Sig: METFORMIN 500 MG TABLET TAKE ONE TABLET BY MOUTH AFTE* TRULICITY 0.75 MG/0.5 ML SUBC* INJECT 0.75 MG SUBCUTANEOUSLY* ATORVASTATIN 40 MG TABLET Take 1 tablet by mouth daily * KETOCONAZOLE 2 % SHAMPOO Apply 1 application to affect* TRIAMTERENE 37.5 MG-HYDROCHLO* Take 1 capsule by mouth once * METOPROLOL SUCCINATE ER 25 MG* Take 1 tablet by mouth twice * ASPIRIN 81 MG CHEWABLE TABLET Take 1 tablet by mouth once d* CLOPIDOGREL 75 MG TABLET Take 1 tablet by mouth once d* LISINOPRIL 5 MG TABLET Take 1 tablet by mouth once d* NITROGLYCERIN 0.4 MG SUBLINGU* Dissolve 1 tablet under the t* CHOLECALCIFEROL (VITAMIN D3) * Take 1 capsule by mouth once * MULTIVITAMIN ORAL Take by mouth. OMEGA-3 FATTY ACIDS-VITAMIN E* Take 1 capsule by mouth once * PROBIOTIC ORAL Take 1 tablet by mouth once d* * CPAP Problem List As Of Date 06/13/2018 Noted Resolved Mixed hyperlipidemia [E78.2] INVALID FOR* Priority: A More... Obstructive sleep apnea on CPAP [G47.33, Z99.89] Priority: B More... Scalp itch [L29.9] Priority: D Seasonal allergies [J30.2] Priority: B More... History of depression [Z86.59] Priority: B More... More... Arthritis [M19.90] Priority: M More... Rosacea [L71.9] Priority: D More... History of hyperparathyroidism [Z86.39] Priority: B More... 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 Diabetic eye exam (HCC) [Z01.00, E11.9] INVALID FOR* Priority: A More... Well adult exam [Z00.00] INVALID FOR* Priority: E More... Colon cancer screening [Z12.11] INVALID FOR* Controlled type 2 diabetes mellitus without com*INVALID FOR* Priority: A Atherosclerosis of [place] coronary artery with *INVALID FOR* Priority: A More... S/P angioplasty with stent [Z95.9] INVALID FOR* Priority: A More... Meniere disease, right [H81.01] INVALID FOR* Priority: B Amaurosis fugax [G45.3] INVALID FOR* Priority: A More... Garibay's cyst of knee, left [M71.22] INVALID FOR* Priority: M Other instructions from your clinician: 1. Can start claritin (loratadine) daily to help with itchy eyes. 2. Continue to monitor scalp, if any changes, please let us know. Disposition: Return if symptoms worsen or fail to improve. Follow-up and Disposition History Recorded Encounter Status:Closed by GABY NICHOLSON CNP on 06/13/18 PROGRESS Observed: 06/13/2018 Status: COMPLETED Source: [place] 7:57 AM [facility] RE[facility]IT[facility] O ID: [id number] Author: Gaby (Slagger) Bharat Service: (none) Author Type: Nurse Practitioner Type: Progress Notes Filed: 06/13/2018 8:33 AM Note Text: HPI/CC: Dom Barba is a 62 year old female who presents to the office today for ER follow-up. She was to [facility] on 06/06[facility]18 following c/o swollen lymph node and scalp pain. Dx: Shingles Testing completed at the facility: none Labwork completed at the facility: none Other specialist and follow up care: none On 06/06 in the morning, woke with swollen right lymph node and scalp pain. Refers that she actually noticed the day prior, that the arm of her eye glasses was uncomfortable against her scalp. Went to work. 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 Went to the ER, because of the swollen lymph node and extreme tenderness to light tough to the scalp (no lesions present yet), she was dx with shingles and started on valtrex (1 gram three times daily X 7 days). Took last valtrex this morning. Refers that it feels much better. Refers that she's been having red/itchy eyes d/t allergies. 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 Not taking anything. 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 Gomez - Garibay's cyst of knee, left 03/02/2018 - Colon polyp 2011 - Diabetes mellitus type 2, controlled, without complications (HCC) - Essential hypertension 01/16/2016 - Female pattern hair loss - History of depression when - History of hyperparathyroidism - Mixed hyperlipidemia 05/31/2009 statin intolerance - Obstructive sleep apnea on CPAP Sibilia - Psoriasis - Rosacea with ocular symptoms - S/P angioplasty with stent 01/09/2017 stents to mid and proximal left anterior descending Art, and angio of ostium of #2 diagonal - Scalp itch - Seasonal allergies Dr Pompa - TIA (transient ischemic attack) 06/2017 - Vitamin D deficiency 2012 PAST SURGICAL HISTORY Procedure Laterality Date - 2D ECHO (EXEP) 06/30/2017 EF=65%, trivial [place], TI and 1+ PI Unchanged from 04/2017 - BUNIONECTOMY, LAPIDUS-TYPE 2009 left great toe - DELIVERY ONLY - COLONOSCOPY 08/07/15 no polyps, recheck 3-5 yrs - COLONOSCOPY AND POLYPECTOMY 10/12, 10/13 Dr Barba; hyperplastic polyps - HEART CATHETERIZATION 2004 heart cath-normal per patient - HEART CATHETERIZATION 01/04/2017 EF=60%, left anterior desending septal perferator 95-99% stenosis and diagonal branch 85% stenosis, - LOW BACK DISK SURGERY 2010 microdecompression L4 L5 - PAST SURGICAL HISTORY OF 2005 parathyroidectomy x1 - PAST SURGICAL HISTORY OF lipoma x2 - PAST SURGICAL HISTORY OF 10/13 left foot surgery (bone cyst in heel, removed) - PAST SURGICAL HISTORY OF 2015 bilateral carpel tunnel - PAST SURGICAL HISTORY OF Right 10/2016 trigger finger release x2 - REMOVAL GALLBLADDER 2004 Cholecystectomy - STENT PLACEMENT 01/06/2017 stents to mid and proximal left anterior descending Art, and angio of ostium of #2 diagonal - STRESS TEST 04/20/2017 WNL - TOTAL ABDOM HYSTERECTOMY 1995 LEDA for benign fibroid, ovaries intact FAMILY HISTORY Problem Relation Age of Onset - Pancreatic cancer [OTHER] Mother - Coronary Artery Disease Father 25 [place] @ 25. CABG - Diabetes Paternal Grandmother - Diabetes Maternal Grandfather - Lung cancer [OTHER] Brother - suicide [OTHER] Son may of been depression Social History Marital status: Spouse name: Kisha Years of education: 14 Number of children: 3 Occupational History Occupation Employer Comment [employer] Social History Main Topics Smoking status: Former Smoker Packs/day: 1.50 Years: 3.00 Types: Cigarettes Quit date: 11/08/1994 Smokeless tobacco: Never Used Comment: smoked 3 years in mid 90 Alcohol use: No Drug use: No Sexual activity: Yes Partners with: Male Social History Narrative 3 children. 06/2011. 1st child suicide at 17. Remarried. Current Outpatient Prescriptions on File Prior to Visit: metFORMIN (GLUCOPHAGE) 500 mg tablet TAKE ONE TABLET BY MOUTH AFTER BREAKFAST AND TWO TABLETS AFTER DINNER TRULICITY 0.75 mg/0.5 mL pnij INJECT 0.75 MG SUBCUTANEOUSLY ONCE EACH WEEK atorvastatin (LIPITOR) 40 mg tablet Take 1 tablet by mouth daily at bedtime. For cholesterol. ketoconazole (NIZORAL) 2 % shampoo Apply 1 application to affected area once daily as needed. triamterene-hydrochlorothiazide 37.5-25 mg per capsule Take 1 capsule by mouth once daily. By. Dr. Pompa metoprolol succinate ER (TOPROL XL) 25 mg 24 hr tablet Take 1 tablet by mouth twice daily. Per Dr. Gomez aspirin 81 mg chewable tablet Take 1 tablet by mouth once daily. clopidogrel (PLAVIX) 75 mg tablet Take 1 tablet by mouth once daily. lisinopril (ZESTRIL, PRINIVIL) 5 mg tablet Take 1 tablet by mouth once daily. nitroglycerin sublingual (NITROQUICK) 0.4 mg SL tablet Dissolve 1 tablet under the tongue every 5 minutes as needed for Chest Pain. cholecalciferol, vitamin D3, (VITAMIN D3) 4,000 unit cap Take 1 capsule by mouth once daily. MULTIVITAMIN ORAL Take by mouth. [place]yer-3 Fatty Acids-Vitamin E (FISH OIL) 1,000 mg cap Take 1 capsule by mouth once daily. LACTOBACILLUS ACIDOPHILUS (PROBIOTIC ORAL) Take 1 tablet by mouth once daily. CPAP No current facility-administered medications on file prior to visit. ALLERGIES Allergen Reactions - Brilinta [Ticagrelo* Shortness of Breath - Keflex [Cephalexin] facial flushing - Lipitor [Atorvastat* Other: See Comments myalgia - Lisinopril Cough - Lovastatin Other: See Comments myalgia - Be[place]ley [Hydrocodone-* Itching PHYSICAL EXAMINATION: BP 130/82 (BP Site: Left Arm, BP Position: Sitting, BP Cuff Size: Regular Adult) Pulse 60 Resp 18 Wt 75.4 kg (166 lb 1.9 oz) BMI 29.43 kg/m? General appearance: Well appearing, alert, in no acute distress, well-hydrated, well nourished. Skin: Skin color, texture, turgor normal. Right scalp with a some mild redness and few small scattered scabbed areas. No s/s of infection. Head: Normocephalic, no masses, lesions, tenderness or abnormalities Eyes: Anicteric sclera. Eyes red. Pupils are equally round and reactive to light. Extraocular movements are intact. No drainage. Ears: External ears normal, canals clear, TM's normal Oropharynx: Lips, mucosa, and tongue normal, teeth and gums normal, oropharynx normal Neck: Supple, no adenopathy; thyroid symmetric, normal size Lungs: Lungs clear to auscultation. No wheezing, rhonchi, rales, Lungs clear to auscultation. No wheezing, rhonchi, rales Heart: RRR without murmur, gallop, or rubs. No ectopy Abdomen: Abdomen soft, non-tender. Bowel sounds normal. No masses, organomegaly Extremities: No deformities, edema, skin discoloration, clubbing or cyanosis. Good capillary refill. Peripheral pulses: Normal Neuro: Gait normal. Reflexes normal and symmetric. Sensation grossly intact. ASSESSMENT/PLAN: 1. Herpes zoster without complication - ICD9: 053.9, ICD10: B02.9 (primary diagnosis) Finished valtrex this morning. Feels much better. No s/s of infection. Continue to monitor. 2. Environmental allergies - ICD9: V15.09, ICD10: Z91.09 Can use plain claritin or cadence as needed. Discussed treatment plan and patient voices understanding. Patient's questions answered appropriately. Medications and potential side effects were discussed and patient voices understanding. Return to the office as scheduled or as needed for worsening/no improvement. Gaby Nicholson APRN.[facility] EMERGENCY DEPARTMENT Observed: 06/07/2018 Status: F Source: [place] SUMMARY 1:45 AM [facility] [place] REPOSITORY [facility] Medical Records Department [address] [place] [address] Emergency Department Summary 06/06/18 1533 MR#: [id number] Acct: [id number] Name: DOM BARBA Rep #: [id number] : [id number] From: Noble Liao MD PCP: Clifton Hung MD Status: DEP ER - ER Visit Summary Date of Service: 06/06/18 Chief Complaint: Headache and lump in neck History of Present Illness: The patient is a 62 F presenting for evaluation secondary to headache and lump in her neck. Patient reports that this morning she woke up and she noted that she had pain to very light sensation over her right occiput. She also noted that she had a lump in her right neck. She denies any visual changes numbness weakness. She denies any prior similar symptoms in the past. She denies any skin rashes. Patient was concerned because she had a history of TIA and coronary artery disease. Patient does endorse that she has had some contacts recently that of had shingles. Review of systems otherwise negative. Physical Examination: Physical exam unremarkable except for HEENT exam. There is tenderness to very light palpation over the right occiput without evidence of underlying vesicular rash. There is a palpable minimally tender mobile and well-circumscribed posterior cervical lymph node noted. No evidence of overlying skin changes in that area. Remainder physical otherwise unremarkable. Test Results: None indicated Emergency Department Course and Treatment: Patient presented for evaluation secondary to a painful lymph node and pain over the right side of her occipital scalp. While the patient does not clearly have a rash at this time, given the fact that there is a lymph node involved in the fact that the patient has pain with extremely light touch of suspicious for the possibility of the start of a shingles outbreak. Patient will be started on a course of Valtrex she is instructed to follow-up with her primary care doctor Disposition: Discharge Impression: 1. Occipital neuralgia This note was generated with [employer] dictation software. It may contain incorrect words, spelling, and punctuation that were not noted in review of the chart prior to signing ED Disposition - Plan for ED Patient: Disposition: Home or Assisted Living Chief Complaint: Other, Pain/Inj Diagnosis: Occipital neuralgia of right side Instructions: ED Shingles Prescriptions: Valacyclovir HCl [Valtrex] 1,000 mg PO TID #21 tab Referrals: Clifton Hung MD [Primary Care Provider] - 1 Week What to do if you have Problems For any increased pain, shortness of breath, bleeding, nausea or vomiting, chest pain, or any unexpected problems, contact your Primary Care Provider. Call [facility] ([phone]) or report to the closest Emergency Room. Call 911 if necessary. 06/07/18 0145 <Electronically signed by Noble Liao MD> Date Noble Liao MD Cosigner Signature (If Indicated): Date CC: Clifton Hung MD PROGRESS Observed: 03/02/2018 Status: COMPLETED Source: [place] 9:34 AM [facility] O ID: [id number] Author: Clifton Hung Service: (none) Author Type: Physician Type: Progress Notes Filed: 03/02/2018 12:49 PM Note Text: Chief Complaint Patient presents with: Byron WALTON Dom Barba is a 62 year old female who presents here today for Chronic Medical Conditions.. Patient with Hx as reviewed and documented as below. Has been doing ok. 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 Cyst on back of left knee has been ok. Past medical history, appointments, medications, allergies reviewed. 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 Gomez - Colon polyp 2011 - Diabetes mellitus type 2, controlled, without complications (HCC) - Essential hypertension 01/16/2016 - Female pattern hair loss - History of depression when - History of hyperparathyroidism - Mixed hyperlipidemia 05/31/2009 statin intolerance - Obstructive sleep apnea on CPAP Sibilia - Psoriasis - Rosacea with ocular symptoms - S/P angioplasty with stent 01/09/2017 stents to mid and proximal left anterior descending Art, and angio of ostium of #2 diagonal - Scalp itch - Seasonal allergies Dr Pompa - TIA (transient ischemic attack) 06/2017 - Vitamin D deficiency 2012 Previous Surgical History PAST SURGICAL HISTORY Procedure Laterality Date - 2D ECHO (EXEP) 06/30/2017 EF=65%, trivial [place], TI and 1+ PI Unchanged from 04/2017 - BUNIONECTOMY, LAPIDUS-TYPE 2009 left great toe - DELIVERY ONLY - COLONOSCOPY 08/07/15 no polyps, recheck 3-5 yrs - COLONOSCOPY AND POLYPECTOMY 10/12, 10/13 Dr Barba; hyperplastic polyps - HEART CATHETERIZATION 2004 heart cath-normal per patient - HEART CATHETERIZATION 01/04/2017 EF=60%, left anterior desending septal perferator 95-99% stenosis and diagonal branch 85% stenosis, - LOW BACK DISK SURGERY 2010 microdecompression L4 L5 - PAST SURGICAL HISTORY OF 2004 parathyroidectomy x1 - PAST SURGICAL HISTORY OF lipoma x2 - PAST SURGICAL HISTORY OF 10/13 left foot surgery (bone cyst in heel, removed) - PAST SURGICAL HISTORY OF 2014 bilateral carpel tunnel - PAST SURGICAL HISTORY OF Right 10/2016 trigger finger release x2 - REMOVAL GALLBLADDER 2004 Cholecystectomy - STENT PLACEMENT 01/06/2017 stents to mid and proximal left anterior descending Art, and angio of ostium of #2 diagonal - STRESS TEST 04/20/2017 WNL - TOTAL ABDOM HYSTERECTOMY 1995 LEDA for benign fibroid, ovaries intact Family History FAMILY HISTORY Problem Relation Age of Onset - Pancreatic cancer [OTHER] Mother - Coronary Artery Disease Father 25 [place] @ 25. CABG - Diabetes Paternal Grandmother - Diabetes Maternal Grandfather - Lung cancer [OTHER] Brother - suicide [OTHER] Son may of been depression Patient Allergies ALLERGIES Allergen Reactions - Brilinta [Ticagrelo* Shortness of Breath - Keflex [Cephalexin] facial flushing - Lipitor [Atorvastat* Other: See Comments myalgia - Lisinopril Cough - Lovastatin Other: See Comments myalgia - [place] [Hydrocodone-* Itching Current Medications Current Outpatient Prescriptions on File Prior to Visit: dulaglutide (TRULICITY) 0.75 mg/0.5 mL pnij INJECT 0.75 MG SUBCUTANEOUSLY ONCE EACH WEEK ketoconazole (NIZORAL) 2 % shampoo Apply 1 application to affected area once daily as needed. triamterene-hydrochlorothiazide 37.5-25 mg per capsule Take 1 capsule by mouth once daily. By. Dr. Pompa metoprolol succinate ER (TOPROL XL) 25 mg 24 hr tablet Take 1 tablet by mouth twice daily. Per Dr. Gomez aspirin 81 mg chewable tablet Take 1 tablet by mouth once daily. clopidogrel (PLAVIX) 75 mg tablet Take 1 tablet by mouth once daily. metFORMIN (GLUCOPHAGE) 500 mg tablet TAKE ONE TABLET BY MOUTH AFTER BREAKFAST, THEN TWO TABLETS AFTER DINNER lisinopril (ZESTRIL, PRINIVIL) 5 mg tablet Take 1 tablet by mouth once daily. atorvastatin (LIPITOR) 40 mg tablet Take 1 tablet by mouth daily at bedtime. For cholesterol. nitroglycerin sublingual (NITROQUICK) 0.4 mg SL tablet Dissolve 1 tablet under the tongue every 5 minutes as needed for Chest Pain. cholecalciferol, vitamin D3, (VITAMIN D3) 4,000 unit cap Take 1 capsule by mouth once daily. MULTIVITAMIN ORAL Take by mouth. Sawyer-3 Fatty Acids-Vitamin E (FISH OIL) 1,000 mg cap Take 1 capsule by mouth once daily. LACTOBACILLUS ACIDOPHILUS (PROBIOTIC ORAL) Take 1 tablet by mouth once daily. CPAP No current facility-administered medications on file prior to visit. Social History Social History Marital status: Spouse name: Kisha Years of education: 14 Number of children: 3 Occupational History Occupation Employer Comment [employer] Social History Main Topics Smoking status: Former Smoker Packs/day: 1.50 Years: 3.00 Types: Cigarettes Quit date: 11/08/1994 Smokeless status: Never Used Comment: smoked 3 years in mid 90s Alcohol use: No Drug use: No Sexual activity: Yes Partners with: Male Social History Narrative 3 children. 06/2011. 1st child suicide at 17. Remarried. Review of Symptoms REVIEW OF SYSTEMS GENERAL: No weight loss, malaise or fevers NECK: Negative for lumps, goiter, pain and significant neck swelling RESPIRATORY: Negative for cough, hemoptysis, wheezing, COPD, dyspnea or shortness of breath CARDIOVASCULAR: Negative for chest pain, hypertension, CHF or palpitations. Occasional leg swelling GI: No nausea, vomiting, or diarrhea and No heartburn or reflux symptoms : No history of dysuria or blood MUSCULOSKELETAL: was having some neck pain causing headache's on back of head. Had a massage just yesterday. ENDOCRINE: Negative for cold or heat intolerance. No low BS's. FASTING BS's 100-120 NEURO: No history of syncope, paralysis, seizures or tremors EXAM: BP 122/82 (BP Site: Right Arm, BP Position: Sitting, BP Cuff Size: Regular Adult) Pulse 68 Resp 18 Wt 75 kg (165 lb 6.4 oz) BMI 29.3 kg/m2 General Appearance: Well appearing, alert, in no acute distress, well-hydrated, well nourished., Overweight. Neck: Supple, no adenopathy; thyroid symmetric, normal size, no bruits. Lungs: Lungs clear to auscultation. No wheezing, rhonchi, rales. Heart: RRR without murmur, gallop, or rubs. No ectopy. Abdomen: Normal abdominal exam, Abdomen soft, non-tender. Bowel sounds normal. No masses, organomegaly. Extremities: No deformities, edema, skin discoloration. Musculoskeletal: Muscular strength intact, No joint swelling, deformity, or tenderness. Peripheral Pulses: Normal. Neurologic: Gait normal. Reflexes normal and symmetric. Sensation to light touch and crainal nerves 2-12 intact.. Health Maintenance List MAMMOGRAM due on 11/25/2017 DIABETIC FOOT EXAM due on 06/28/2018 HBA1C due on 08/27/2018 DILATED RETINAL EXAM due on 12/03/2018 URINE ALBUMIN CREATININE RATIO due on 02/25/2019 LDL due on 02/25/2019 COLORECTAL CANCER SCREENING,SEE MODIFIER due on 08/07/2020 TETANUS due on 02/24/2024 ONE PNEUMOVAX PRIOR TO AGE 65 Completed INFLUENZA Completed HEPATITIS C SCREENING Completed Data reviewed Component Latest Ref Rng AND Units 02/25/2017 10/25/2017 02/25/2018 Color Yellow Yellow Clarity Clear Cloudy (A) Glucose, Urine Negative mg/dL Negative Bilirubin, Urine Negative Negative Ketones, Urine Negative Negative Specific [place], Ur 1.005 - 1.030 1.018 Hemoglobin/Blood,Ur Negative Negative pH, Urine 4.5 - 8.0 6.0 Protein, Urine Negative mg/dL Negative Urobilinogen Normal Normal Nitrites Negative Negative Leukest Negative Negative Comments SEE COMMENT Urine Enrique Comment SEE COMMENT WBC, Urine 0 - 5 /HPF 0-5 RBC, Urine 0 - 3 /HPF 0-3 Cast 0 /LPF SEE COMMENT (A) Epithelial Cells /HPF SEE COMMENT Protein, Total 6.3 - 8.0 g/dL 7.6 7.1 Albumin 3.9 - 4.9 g/dL 4.5 4.2 Calcium 8.5 - 10.2 mg/dL 9.7 9.1 Bilirubin, Total 0.2 - 1.3 mg/dL 0.5 0.4 Alkaline Phosphatase 32 - 117 U/L 63 48 AST 13 - 35 U/L 31 26 Glucose 74 - 99 mg/dL 118 (H) 122 (H) BUN 7 - 21 mg/dL 13 12 Creatinine 0.58 - 0.96 mg/dL 0.74 0.85 Sodium 136 - 144 mmol/L 142 142 Potassium 3.7 - 5.1 mmol/L 4.1 4.3 Chloride 97 - 105 mmol/L 99 100 CO2 22 - 30 mmol/L 32 (H) 30 Anion Gap 9 - 18 mmol/L 11 12 ALT 7 - 38 U/L 31 20 eGFR- >60 >60 eGFR-All Other Races . >60 >60 Triglyceride <150 mg/dL 122 93 Cholesterol, Total <200 mg/dL 145 116 HDL Cholesterol >39 mg/dL 44 (L) 34 (L) VLDL Cholesterol <30 mg/dL 24 19 LDL Cholesterol <100 mg/dL 77 63 Fasting Time hrs 11 11 TC:HDL Ratio <5.10 3.30 3.41 LDL:HDL Ratio <2.54 1.75 1.85 Non HDL Cholesterol <130 mg/dL 101 82 Creatinine, Ur Random (UCRR) 20 - 300 mg/dL 150.6 Albumin, Urine Random 0.0 - 23.0 mg/L <12.0 Albumin/Creat Ratio 0 - 30 mg/g Not calculated Hemoglobin A1C 4.3 - 5.6 % 7.2 (H) 6.8 (H) Estimated Average Glucose mg/dL 160 148 Vitamin D 25 Hydroxy 31.0 - 80.0 ng/mL 39.7 A/P ASSESSMENT/PLAN: 1. Controlled type 2 diabetes mellitus without complication, without long-term current use of insulin (HCC) - ICD9: 250.00, ICD10: E11.9 (primary diagnosis) improved control - Continue current medications - BP goal of <130/80 - LDL goal of <100 2. Essential hypertension - ICD9: 401.9, ICD10: I10 - good control - Continue current medication(s) - Recommended regular aerobic exercise. - Recommend home blood pressure monitoring, to bring results in on next visit - Goal of BP <130/80 3. Mixed hyperlipidemia - ICD9: 272.2, ICD10: E78.2 - good control - Continue current medication. - Encouraged following a low fat, low cholesterol diet. - Discussed the benefits of regular aerobic exercise and weight loss. - Encouraged following a low carbohydrate, healthy oil intake diet. 4. Atherosclerosis of [place] coronary artery of [place] heart with stable angina pectoris (HCC) - ICD9: 414.01, 413.9, ICD10: I25.118 - Clinically stable cont Tx and cardio f/u. 5. Obstructive sleep apnea on CPAP - ICD9: 327.23, V46.8, ICD10: G47.33, Z99.89 - Doing well with CPAP with no issues. 6. Vitamin D deficiency - ICD9: 268.9, ICD10: E55.9 - Stable with replacement. Signed Prescriptions Disp Refills atorvastatin (LIPITOR) 40 mg tablet 90 tablet 1 Sig: Take 1 tablet by mouth daily at bedtime. For cholesterol. MARIUSZ: No F/u 6 months WAE check CBC, A1c and FLP prior. Will send copy of today's note to Dr. Gomez for HAI Hung MD CNOV Observed: 03/02/2018 Status: COMPLETED Source: [place] 9:20 AM [facility] REPOSITORY Office Visit (FAMPWS) DOM BARBA ([id number]) 1955 F Date Time Provider Department 03/02/18 9:20 AM CLIFTON HUNG During your visit today, we recorded the following information about you: Pulse Respiration Blood pressure Weight 68/minute 18/minute 122/82 75 kg Clifton Hung MD 03/02/2018 12:49 PM Signed Chief Complaint Patient presents with: Recheck HPI Dom Barba is a 62 year old female who presents here today for Chronic Medical Conditions.. Patient with Hx as reviewed and documented as below. Has been doing ok. 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 Cyst on back of left knee has been ok. Past medical history, appointments, medications, allergies reviewed. 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 Gomez - Colon polyp 2011 - Diabetes mellitus type 2, controlled, without complications ([facility]) - Essential hypertension 01/16/2016 - Female pattern hair loss - History of depression when - History of hyperparathyroidism - Mixed hyperlipidemia 05/31/2009 statin intolerance - Obstructive sleep apnea on CPAP Sibilia - Psoriasis - Rosacea with ocular symptoms - S/P angioplasty with stent 01/09/2017 stents to mid and proximal left anterior descending Art, and angio of ostium of #2 diagonal - Scalp itch - Seasonal allergies Dr Pompa - TIA (transient ischemic attack) 06/2017 - Vitamin D deficiency 2012 Previous Surgical History PAST SURGICAL HISTORY Procedure Laterality Date - 2D ECHO (EXEP) 06/30/2017 EF=65%, trivial [place], TI and 1+ PI Unchanged from 04/2017 - BUNIONECTOMY, LAPIDUS-TYPE 2009 left great toe - DELIVERY ONLY - COLONOSCOPY 08/07/15 no polyps, recheck 3-5 yrs - COLONOSCOPY ANDamp; POLYPECTOMY 10/12, 10/13 Dr Barba; hyperplastic polyps - HEART CATHETERIZATION 2004 heart cath-normal per patient - HEART CATHETERIZATION 01/04/2017 EF=60%, left anterior desending septal perferator 95-99% stenosis and diagonal branch 85% stenosis, - LOW BACK DISK SURGERY 2009 microdecompression L4 L5 - PAST SURGICAL HISTORY OF 2004 parathyroidectomy x1 - PAST SURGICAL HISTORY OF lipoma x2 - PAST SURGICAL HISTORY OF 10/13 left foot surgery (bone cyst in heel, removed) - PAST SURGICAL HISTORY OF 2014 bilateral carpel tunnel - PAST SURGICAL HISTORY OF Right 10/2016 trigger finger release x2 - REMOVAL GALLBLADDER 2004 Cholecystectomy - STENT PLACEMENT 01/06/2017 stents to mid and proximal left anterior descending Art, and angio of ostium of #2 diagonal - STRESS TEST 04/20/2017 WNL - TOTAL ABDOM HYSTERECTOMY 1995 LEDA for benign fibroid, ovaries intact Family History FAMILY HISTORY Problem Relation Age of Onset - Pancreatic cancer [OTHER] Mother - Coronary Artery Disease Father 25 [place] @ 25. CABG - Diabetes Paternal Grandmother - Diabetes Maternal Grandfather - Lung cancer [OTHER] Brother - suicide [OTHER] Son may of been depression Patient Allergies ALLERGIES Allergen Reactions - Brilinta [Ticagrelo* Shortness of Breath - Keflex [Cephalexin] facial flushing - Lipitor [Atorvastat* Other: See Comments myalgia - Lisinopril Cough - Lovastatin Other: See Comments myalgia - [place] [Hydrocodone-* Itching Current Medications Current Outpatient Prescriptions on File Prior to Visit: dulaglutide (TRULICITY) 0.75 mg/0.5 mL pnij INJECT 0.75 MG SUBCUTANEOUSLY ONCE EACH WEEK ketoconazole (NIZORAL) 2 % shampoo Apply 1 application to affected area once daily as needed. triamterene-hydrochlorothiazide 37.5-25 mg per capsule Take 1 capsule by mouth once daily. By. Dr. Pompa metoprolol succinate ER (TOPROL XL) 25 mg 24 hr tablet Take 1 tablet by mouth twice daily. Per Dr. Gomez aspirin 81 mg chewable tablet Take 1 tablet by mouth once daily. clopidogrel (PLAVIX) 75 mg tablet Take 1 tablet by mouth once daily. metFORMIN (GLUCOPHAGE) 500 mg tablet TAKE ONE TABLET BY MOUTH AFTER BREAKFAST, THEN TWO TABLETS AFTER DINNER lisinopril (ZESTRIL, PRINIVIL) 5 mg tablet Take 1 tablet by mouth once daily. atorvastatin (LIPITOR) 40 mg tablet Take 1 tablet by mouth daily at bedtime. For cholesterol. nitroglycerin sublingual (NITROQUICK) 0.4 mg SL tablet Dissolve 1 tablet under the tongue every 5 minutes as needed for Chest Pain. cholecalciferol, vitamin D3, (VITAMIN D3) 4,000 unit cap Take 1 capsule by mouth once daily. MULTIVITAMIN ORAL Take by mouth. Sawyer-3 Fatty Acids-Vitamin E (FISH OIL) 1,000 mg cap Take 1 capsule by mouth once daily. LACTOBACILLUS ACIDOPHILUS (PROBIOTIC ORAL) Take 1 tablet by mouth once daily. CPAP No current facility-administered medications on file prior to visit. Social History Social History Marital status: Spouse name: Kisha Years of education: 14 Number of children: 3 Occupational History Occupation Employer Comment [employer] Social History Main Topics Smoking status: Former Smoker Packs/day: 1.50 Years: 3.00 Types: Cigarettes Quit date: 11/08/1994 Smokeless status: Never Used Comment: smoked 3 years in mid Alcohol use: No Drug use: No Sexual activity: Yes Partners with: Male Social History Narrative 3 children. 06/2011. 1st child suicide at 17. Remarried. Review of Symptoms REVIEW OF SYSTEMS GENERAL: No weight loss, malaise or fevers NECK: Negative for lumps, goiter, pain and significant neck swelling RESPIRATORY: Negative for cough, hemoptysis, wheezing, COPD, dyspnea or shortness of breath CARDIOVASCULAR: Negative for chest pain, hypertension, CHF or palpitations. Occasional leg swelling GI: No nausea, vomiting, or diarrhea and No heartburn or reflux symptoms : No history of dysuria or blood MUSCULOSKELETAL: was having some neck pain causing headache's on back of head. Had a massage just yesterday. ENDOCRINE: Negative for cold or heat intolerance. No low BS's. FASTING BS's 100-120 NEURO: No history of syncope, paralysis, seizures or tremors EXAM: BP 122/82 (BP Site: Right Arm, BP Position: Sitting, BP Cuff Size: Regular Adult) Pulse 68 Resp 18 Wt 75 kg (165 lb 6.4 oz) BMI 29.3 kg/m2 General Appearance: Well appearing, alert, in no acute distress, well-hydrated, well nourished., Overweight. Neck: Supple, no adenopathy; thyroid symmetric, normal size, no bruits. Lungs: Lungs clear to auscultation. No wheezing, rhonchi, rales. Heart: RRR without murmur, gallop, or rubs. No ectopy. Abdomen: Normal abdominal exam, Abdomen soft, non-tender. Bowel sounds normal. No masses, organomegaly. Extremities: No deformities, edema, skin discoloration. Musculoskeletal: Muscular strength intact, No joint swelling, deformity, or tenderness. Peripheral Pulses: Normal. Neurologic: Gait normal. Reflexes normal and symmetric. Sensation to light touch and crainal nerves 2-12 intact.. Health Maintenance List MAMMOGRAM due on 11/25/2017 DIABETIC FOOT EXAM due on 06/28/2018 HBA1C due on 08/27/2018 DILATED RETINAL EXAM due on 12/03/2018 URINE ALBUMIN CREATININE RATIO due on 02/25/2019 LDL due on 02/25/2019 COLORECTAL CANCER SCREENING,SEE MODIFIER due on 08/07/2020 TETANUS due on 02/24/2024 ONE PNEUMOVAX PRIOR TO AGE 65 Completed INFLUENZA Completed HEPATITIS C SCREENING Completed Data reviewed Component Latest Ref Rng ANDamp; Units 02/25/2017 10/25/2017 02/25/2018 Color Yellow Yellow Clarity Clear Cloudy (A) Glucose, Urine Negative mg/dL Negative Bilirubin, Urine Negative Negative Ketones, Urine Negative Negative Specific [place], Ur 1.005 - 1.030 1.018 Hemoglobin/Blood,Ur Negative Negative pH, Urine 4.5 - 8.0 6.0 Protein, Urine Negative mg/dL Negative Urobilinogen Normal Normal Nitrites Negative Negative Leukest Negative Negative Comments SEE COMMENT Urine Enrique Comment SEE COMMENT WBC, Urine 0 - 5 /HPF 0-5 RBC, Urine 0 - 3 /HPF 0-3 Cast 0 /LPF SEE COMMENT (A) Epithelial Cells /HPF SEE COMMENT Protein, Total 6.3 - 8.0 g/dL 7.6 7.1 Albumin 3.9 - 4.9 g/dL 4.5 4.2 Calcium 8.5 - 10.2 mg/dL 9.7 9.1 Bilirubin, Total 0.2 - 1.3 mg/dL 0.5 0.4 Alkaline Phosphatase 32 - 117 U/L 63 48 AST 13 - 35 U/L 31 26 Glucose 74 - 99 mg/dL 118 (H) 122 (H) BUN 7 - 21 mg/dL 13 12 Creatinine 0.58 - 0.96 mg/dL 0.74 0.85 Sodium 136 - 144 mmol/L 142 142 Potassium 3.7 - 5.1 mmol/L 4.1 4.3 Chloride 97 - 105 mmol/L 99 100 CO2 22 - 30 mmol/L 32 (H) 30 Anion Gap 9 - 18 mmol/L 11 12 ALT 7 - 38 U/L 31 20 eGFR- ANDgt;60 ANDgt;60 eGFR-All Other Races . ANDgt;60 ANDgt;60 Triglyceride ANDlt;150 mg/dL 122 93 Cholesterol, Total ANDlt;200 mg/dL 145 116 HDL Cholesterol ANDgt;39 mg/dL 44 (L) 34 (L) VLDL Cholesterol ANDlt;30 mg/dL 24 19 LDL Cholesterol ANDlt;100 mg/dL 77 63 Fasting Time hrs 11 11 TC:HDL Ratio ANDlt;5.10 3.30 3.41 LDL:HDL Ratio ANDlt;2.54 1.75 1.85 Non HDL Cholesterol ANDlt;130 mg/dL 101 82 Creatinine, Ur Random (UCRR) 20 - 300 mg/dL 150.6 Albumin, Urine Random 0.0 - 23.0 mg/L ANDlt;12.0 Albumin/Creat Ratio 0 - 30 mg/g Not calculated Hemoglobin A1C 4.3 - 5.6 % 7.2 (H) 6.8 (H) Estimated Average Glucose mg/dL 160 148 Vitamin D 25 Hydroxy 31.0 - 80.0 ng/mL 39.7 A/P ASSESSMENT/PLAN: 1. Controlled type 2 diabetes mellitus without complication, without long-term current use of insulin (HCC) - ICD9: 250.00, ICD10: E11.9 (primary diagnosis) improved control - Continue current medications - BP goal of ANDlt;130/80 - LDL goal of ANDlt;100 2. Essential hypertension - ICD9: 401.9, ICD10: I10 - good control - Continue current medication(s) - Recommended regular aerobic exercise. - Recommend home blood pressure monitoring, to bring results in on next visit - Goal of BP ANDlt;130/80 3. Mixed hyperlipidemia - ICD9: 272.2, ICD10: E78.2 - good control - Continue current medication. - Encouraged following a low fat, low cholesterol diet. - Discussed the benefits of regular aerobic exercise and weight loss. - Encouraged following a low carbohydrate, healthy oil intake diet. 4. Atherosclerosis of [place] coronary artery of [place] heart with stable angina pectoris (HCC) - ICD9: 414.01, 413.9, ICD10: I25.118 - Clinically stable cont Tx and cardio f/u. 5. Obstructive sleep apnea on CPAP - ICD9: 327.23, V46.8, ICD10: G47.33, Z99.89 - Doing well with CPAP with no issues. 6. Vitamin D deficiency - ICD9: 268.9, ICD10: E55.9 - Stable with replacement. Signed Prescriptions Disp Refills atorvastatin (LIPITOR) 40 mg tablet 90 tablet 1 Sig: Take 1 tablet by mouth daily at bedtime. For cholesterol. MARIUSZ: No F/u 6 months WAE check CBC, A1c and FLP prior. Will send copy of today's note to Dr. Gomez for MD Clifton Miller MD 03/02/2018 9:49 AM Signed Please get fasting labs on or after 08/19/2018 prior to next visit. Referring Provider: CLIFTON HUNG [[id number]] Allergies As of Date: 03/02/2018 Noted Allergy Reaction BRILINTA (TICAGRELOR) 06/28/2017 12 - Shortness of Breath KEFLEX (CEPHALEXIN) 02/02/2006 Comments: facial flushing LIPITOR (ATORVASTATIN) 07/21/2013 14 - Other: See Comments Comments: myalgia LISINOPRIL 07/21/2013 3 - Cough LOVASTATIN 07/21/2013 14 - Other: See Comments Comments: myalgia NORCO (HYDROCODONE-ACETAMINOPHEN) 10/29/2016 9 - Itching Date Reviewed: 03/02/2018 Reviewed by: Clifton Hung - Fully Assessed Reason for Visit: Recheck [92] Primary Visit Diagnosis:Controlled type 2 diabetes mellitus without complication, without long-term current use of insulin (HCC) [E11.9] Other Visit Diagnoses:Essential hypertension [I10] Mixed hyperlipidemia [E78.2] Atherosclerosis of [place] coronary artery of [place] heart with stable angina pectoris (HCC) [I25.118] Obstructive sleep apnea on CPAP [G47.33, Z99.89] Vitamin D deficiency [E55.9] Order(s):atorvastatin (LIPITOR) 40 mg tabletTake 1 tablet by mouth daily at bedtime. For cholesterol.Disp: 90 tabletRfl: 1 HGB A1C [RUGZR2A] Order #: [id number] FUTURE LIPID PANEL BASIC [SQLIPB] Order #: [id number] FUTURE CBC + DIFF [SQCBCDIF] Order #: [id number] FUTURE Prescriptions as of 03/02/2018 Sig: ATORVASTATIN 40 MG TABLET Take 1 tablet by mouth daily * DULAGLUTIDE 0.75 MG/0.5 ML HERNANDEZ* INJECT 0.75 MG SUBCUTANEOUSLY* KETOCONAZOLE 2 % SHAMPOO Apply 1 application to affect* TRIAMTERENE 37.5 MG-HYDROCHLO* Take 1 capsule by mouth once * METOPROLOL SUCCINATE ER 25 MG* Take 1 tablet by mouth twice * ASPIRIN 81 MG CHEWABLE TABLET Take 1 tablet by mouth once d* CLOPIDOGREL 75 MG TABLET Take 1 tablet by mouth once d* METFORMIN 500 MG TABLET TAKE ONE TABLET BY MOUTH AFTE* LISINOPRIL 5 MG TABLET Take 1 tablet by mouth once d* NITROGLYCERIN 0.4 MG SUBLINGU* Dissolve 1 tablet under the t* CHOLECALCIFEROL (VITAMIN D3) * Take 1 capsule by mouth once * MULTIVITAMIN ORAL Take by mouth. OMEGA-3 FATTY ACIDS-VITAMIN E* Take 1 capsule by mouth once * PROBIOTIC ORAL Take 1 tablet by mouth once d* * CPAP Problem List As Of Date 03/02/2018 Noted Resolved Mixed hyperlipidemia [E78.2] INVALID FOR* Priority: A More... Obstructive sleep apnea on CPAP [G47.33, Z99.89] Priority: B More... Scalp itch [L29.9] Priority: D Seasonal allergies [J30.2] Priority: B More... History of depression [Z86.59] Priority: B More... More... Arthritis [M19.90] Priority: M More... Rosacea [L71.9] Priority: D More... History of hyperparathyroidism [Z86.39] Priority: B More... 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 Diabetic eye exam (HCC) [Z01.00, E11.9] INVALID FOR* Priority: A More... Well adult exam [Z00.00] INVALID FOR* Priority: E More... Colon cancer screening [Z12.11] INVALID FOR* Controlled type 2 diabetes mellitus without com*INVALID FOR* Priority: A Atherosclerosis of [place] coronary artery with *INVALID FOR* Priority: A More... S/P angioplasty with stent [Z95.9] INVALID FOR* Priority: A More... Meniere disease, right [H81.01] INVALID FOR* Priority: B Amaurosis fugax [G45.3] INVALID FOR* Priority: A More... Garibay's cyst of knee, left [M71.22] INVALID FOR* Priority: M Other instructions from your clinician: Please get fasting labs on or after 08/19/2018 prior to next visit. Prescriptions ordered this encounter Disp Refills Start End ATORVASTATIN 40 MG TABLET 90 t* 1 03/02/2018 Route: ORAL Sig: Take 1 tablet by mouth daily at bedtime. For cholesterol. Medications Discontinued During This Encounter atorvastatin (LIPITOR) 40 mg tablet 0 01/09/2017 03/02/2018 Class: Med Update Route: ORAL Sig: Take 1 tablet by mouth daily at bedtime. For cholesterol. Disc: Reason for discontinue is not on file. Disposition: Return in about 6 months (around 09/01/2018) for complete PE. Follow-up and Disposition History Recorded Encounter Status:Closed by CLIFTON HUNG on 03/02/18 ALBUMIN/CREAT RATIO Collected: 02/25/2018 Status: F Source: [place] 9:06 AM [facility] REPOSITORY TYPE CODE TESTS RESULT OUT OF REFERENCE UNITS RANGE LAB UCRR 20-300 mg/dL 150.6 Creatinine,Ur ine,Ran LAB UALBR 0.0-23.0 mg/L <12.0 Albumin Urine Random LAB UALBCR 0-30 mg/g Not Albumin/Creat calculated Ratio Performed By: #### UACR #### [facility] [address] [place], [place] [address] URINALYSIS WITH Collected: 02/25/2018 Status: F Source: [facility] 9:06 AM [facility] REPOSITORY TYPE CODE TESTS RESULT OUT OF RANGE REFERENCE UNITS LAB UCOL Yellow Color Yellow LAB [facility] Clear Clarity Abnormal Cloudy Alert LAB UGLUC Negative mg/dL Glucose, Urine Negative LAB UBIL Negative Bilirubin, Urine Negative LAB UKET Negative Ketones, Urine Negative LAB USPG 1.005-1.030 Specific [place], Ur 1.018 LAB UHGB Negative Hemoglobin/Blood, Negative Ur LAB UPH 4.5-8.0 pH 6.0 LAB UPROT Negative mg/dL Protein, Urine Negative LAB UUROB Normal Urobilinogen Normal LAB UNITR Negative Nitrites Negative LAB ULKEST Negative Leukest Negative LAB UCOM Comments SEE COMMENT Result Comment: N/A LAB UMCOM Urine SEE Enrique Comment COMMENT Result Comment: N/A LAB UWBC 0-5 /HPF WBC 0-5 LAB URBC 0-3 /HPF RBC 0-3 LAB UCAST 0 /LPF Abnormal Alert Cast SEE COMMENT Result Comment: 4-10 Hyaline Cast LAB UEPI /HPF Epithelial SEE Cells COMMENT Result Comment: Few Squamous Epithelial Cells Performed By: #### UAWMIC #### [facility] [address] [place], [place] [address] COMP METABOLIC PANEL Collected: 02/25/2018 Status: F Source: [place] 8:42 AM [facility] REPOSITORY TYPE CODE TESTS RESULT OUT OF REFERENCE UNITS RANGE LAB TP 6.3-8.0 g/dL Protein, Total 7.1 LAB ALB 3.9-4.9 g/dL Albumin 4.2 LAB CA 8.5-10.2 mg/dL Calcium, Total 9.1 LAB TBIL 0.2-1.3 mg/dL Bilirubin, Total 0.4 LAB ALKP 32-117 U/L Alkaline Phosphatase 48 LAB AST 13-35 U/L AST 26 LAB GLU 74-99 mg/dL Glucose High 122 Result Comment: The [place] Diabetes Association (ADA) provides guidance for cutoff values for fasting glucose and random glucose. The ADA defines fasting as no caloric intake for at least 8 hours. Fas ting plasma glucose results between 100 to 125 mg/dL indicate increased risk for diabetes (prediabetes). Fasting plasma glucose results greater than or equal to 126 mg/dL meet the criteria for diagnosis of diabetes. In the absence of unequivocal hyperglycemia, results should be confirmed by repeat testing. In a patient with classic symptoms of hyperglycemia or hyperglycemic crisis, random plasma glucose results greater than or equal to 200 mg/dL meet the criteria for diagnosis of diabetes. Reference: Standards of Medical Care in Diabetes 2016, [place] Diabetes Association. Diabetes Care. 2016.39(Suppl 1). LAB BUN 7-21 mg/dL BUN 12 LAB CRET 0.58-0.96 mg/dL Creatinine 0.85 LAB NA 136-144 mmol/L Sodium 142 LAB K 3.7-5.1 mmol/L Potassium 4.3 LAB CL 97-105 mmol/L Chloride 100 LAB CO2 22-30 mmol/L CO2 30 LAB AGAP 9-18 mmol/L Anion Gap 12 LAB ALT 7-38 U/L ALT 20 LAB GFRAA eGFR- Amer. >60 LAB GFRNAA . eGFR-All Other Races >60 Result Comment: eGFR (Estimated GFR) Units of measure: mL/min/1.73 meters squared eGFR is derived from the reexpressed MDRD Study equation using the following parameters: serum creatinine, age, gender and race. The creatinine assay has been calibrated to be traceable to IDMS. An eGFR <60 mL/min/1.73m2 for >3 months is consistent with chronic kidney disease. Refer to KDOQI guidelines for clinical interpretation. In patients with unstable renal function, e.g. those with acute kidney injury, the eGFR may not accurately reflect actual GFR. Performed By: #### CMP, LIPB, HBA1C, VITD #### [facility] [address] [place], [place] [address] LIPID PANEL, BASIC Collected: 02/25/2018 Status: F Source: [place] 8:42 AM [facility] REPOSITORY TYPE CODE TESTS RESULT OUT OF REFERENCE UNITS RANGE LAB CHOL <200 mg/dL Cholesterol 116 Result Comment: <200 mg/dL, Desirable 200-239 mg/dL, Borderline high >239 mg/dL, High LAB TRIGLY <150 mg/dL Triglyceride 93 Result Comment: <150 mg/dL, Normal 150-199 mg/dL, Borderline high 200-499 mg/dL, High >499 mg/dL, Very high LAB HDL >39 mg/dL HDL-Cholesterol Low 34 Result Comment: 40-59 mg/dL, Acceptable >59 mg/dL, High: Negative risk factor for coronary heart disease <40 mg/dL, Low: Positive risk factor for coronary heart disease LAB LDL <100 mg/dL LDL-Cholesterol 63 Result Comment: <100 mg/dL, Optimal 100-129 mg/dL, Near optimal/above optimal 130-159 mg/dL, Borderline high 160-189 mg/dL, High >189 mg/dL, Very high Secondary prevention optimal LDL Cholesterol levels are recommended to be < 70 mg/dL LAB NONHDL <130 mg/dL Non HDL Cholesterol 82 Result Comment: <130 mg/dL, Optimal 130-159 mg/dL, Near optimal/above optimal 160-189 mg/dL, Borderline high 190-219 mg/dL, High >219 mg/dL, Very high Secondary prevention optimal non HDL Cholesterol levels are recommended to be < 100 mg/dL LAB FT hrs Fasting Time 11 LAB VLDL <30 mg/dL VLDL Cholesterol 19 LAB TCHDL <5.10 TC:HDL Ratio 3.41 LAB LDLHDL <2.54 LDL:HDL Ratio 1.85 Result Comment: Reference: 1. National Cholesterol Education Program ATP III Guideline At-A-Glance Quick Desk Reference: National Heart, Lung, and Blood [place]. National Institutes of Health. 2001: NIH Publication No. 01-3305. 2. An International Atherosclerosis Society position paper: global recommendations for the management of dyslipidemia: executive summary, Atherosclerosis. 2014: 232(2):410-413. Performed By: #### CMP, LIPB, HBA1C, VITD #### [facility] [place] [address] [place] [id number] HEMOGLOBIN A1C Collected: 02/25/2018 Status: F Source: [place] 8:42 AM [facility] REPOSITORY TYPE CODE TESTS RESULT OUT OF REFERENCE UNITS RANGE LAB HGBA1C 4.3-5.6 % High Hemoglobin A1c 6.8 LAB HBA0 mg/dL Est. Average Glucose 148 Result Comment: eAG: (Estimated average glucose) is a calculated value from HgbA1c and is branch service representative of the average blood glucose level in the last 2-3 month period. Performed By: #### CMP, LIPB, HBA1C, VITD #### [facility] [place] [address] [place] [id number] VITAMIN D 25 HYDROXY Collected: 02/25/2018 Status: F Source: [place] 8:42 AM [facility] REPOSITORY TYPE CODE TESTS RESULT OUT OF REFERENCE UNITS RANGE LAB VITD 31.0-80.0 ng/mL Vitamin D 25 39.7 Hydroxy Result Comment: Classification of 25 [place] Vitamin D status: Insufficiency/Moderate Deficiency: < or = 30 ng/mL Sufficiency/Optimal Levels: 31 to 80 ng/mL Toxicity: > 100 ng/mL Test performed by chemiluminescent immunoassay. Performed By: #### CMP, LIPB, HBA1C, VITD #### [facility] [address] [place], [place] [address] PROGRESS Observed: 01/06/2018 Status: COMPLETED Source: [place] 10:07 AM [facility] REPOSITORY HNO ID: [id number] Author: Gu[place] ([facility]) [employer] Service: (none) Author Type: Nurse Practitioner Type: Progress Notes Filed: 01/06/2018 1:59 PM Note Text: 01/06/2018 Patient presents with: Knee Pain: lft knee for about a week, some swelling ,nor redness or warmth. feels like chintan horses SUBJECTIVE: This is a 62 year old that is here today for Above Complaints. Right now does not have any pain. Onset: 1 week Location: behind the left knee Duration: Intemittent Characteristics: Stabbing:When first gets up out of chair has stabbing pain, somewhat better when she is on her feet but then after standing for awhile comes back Aggravating features: standing, having foot underneath when sitting and putting pressure on area Alleviating features: rest Radiation: To upper calf at times- feels like going to have a chintan horse. Timing: none Hx of arthritis, varicose veins. 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 Gomez - Colon polyp 2011 - Diabetes mellitus type 2, controlled, without complications ([facility]) - Essential hypertension 01/16/2016 - Female pattern hair loss - History of depression when - History of hyperparathyroidism - Mixed hyperlipidemia 05/31/2009 statin intolerance - Obstructive sleep apnea on CPAP Sibilia - Psoriasis - Rosacea with ocular symptoms - S/P angioplasty with stent 01/09/2017 stents to mid and proximal left anterior descending Art, and angio of ostium of #2 diagonal - Scalp itch - Seasonal allergies Dr Pompa - TIA (transient ischemic attack) 06/2017 - Vitamin D deficiency 2012 ALLERGIES Brilinta [Ticagrelor]; Keflex [Cephalexin]; Lipitor [Atorvastatin]; Lisinopril; Lovastatin; Beardsley [Hydrocodone-Acetaminophen] MEDICATIONS Current Outpatient Prescriptions: dulaglutide (TRULICITY) 0.75 mg/0.5 mL pnij INJECT 0.75 MG SUBCUTANEOUSLY ONCE EACH WEEK ketoconazole (NIZORAL) 2 % shampoo Apply 1 application to affected area once daily as needed. triamterene-hydrochlorothiazide 37.5-25 mg per capsule Take 1 capsule by mouth once daily. By. Dr. Pompa metoprolol succinate ER (TOPROL XL) 25 mg 24 hr tablet Take 1 tablet by mouth twice daily. Per Dr. Gomez aspirin 81 mg chewable tablet Take 1 tablet by mouth once daily. clopidogrel (PLAVIX) 75 mg tablet Take 1 tablet by mouth once daily. metFORMIN (GLUCOPHAGE) 500 mg tablet TAKE ONE TABLET BY MOUTH AFTER BREAKFAST, THEN TWO TABLETS AFTER DINNER lisinopril (ZESTRIL, PRINIVIL) 5 mg tablet Take 1 tablet by mouth once daily. atorvastatin (LIPITOR) 40 mg tablet Take 1 tablet by mouth daily at bedtime. For cholesterol. nitroglycerin sublingual (NITROQUICK) 0.4 mg SL tablet Dissolve 1 tablet under the tongue every 5 minutes as needed for Chest Pain. cholecalciferol, vitamin D3, (VITAMIN D3) 4,000 unit cap Take 1 capsule by mouth once daily. MULTIVITAMIN ORAL Take by mouth. Sawyer-3 Fatty Acids-Vitamin E (FISH OIL) 1,000 mg cap Take 1 capsule by mouth once daily. LACTOBACILLUS ACIDOPHILUS (PROBIOTIC ORAL) Take 1 tablet by mouth once daily. CPAP No current facility-administered medications for this visit. Medications and allergies reviewed by this provider. SOCIAL HISTORY Social History Marital status: Spouse name: Kisha Years of education: 14 Number of children: 3 Occupational History Occupation Employer Comment [employer] Social History Main Topics Smoking status: Former Smoker Packs/day: 1.50 Years: 3.00 Types: Cigarettes Quit date: 11/08/1994 Smokeless status: Never Used Comment: smoked 3 years in mid 90s Alcohol use: No Drug use: No Sexual activity: Yes Partners with: Male Social History Narrative 3 children. 06/2011. 1st child suicide at 17. Remarried. REVIEW OF SYSTEMS All other reviewed and negative other than HPI. OBJECTIVE: BP 120/70 (BP Site: Left Arm, BP Position: Sitting, BP Cuff Size: Regular Adult) Pulse 64 Resp 16 Wt 74.9 kg (165 lb 1.9 oz) BMI 29.25 kg/m2. Vital signs reviewed by this provider. APPEARANCE Well appearing, alert, in no acute distress, well-hydrated, well nourished. Left Knee: small non-pulsatile small cyst like structure to popliteal fossa. Small amount of posterior medial swelling. No calf swelling, erythema, warmth, or discoloration. Gait WNL. Several varicose veins to left lower leg. Pain on palpation to popliteal fossa. ASSESSMENT/PLAN: 1. Posterior left knee pain - ICD9: 719.46, ICD10: M25.562 - consistent with bakers cyst - no red flag exam findings - red flag exam findings discussed, patient verbalizes understanding - discussed resting and tylenol- if she is allowed to take NSAIDS for short period she may - discussed options such as steroid injections but she would like to wait a couple of weeks- sees [facility] - Will update in my chart message in 1-2 weeks - follow-up as needed Guadalupe Abebe CNP Prescription instructions reviewed with patient as applicable. Patient advised if symptoms do not improve or if symptoms worsen sooner, to contact their primary care physician. Potential red flag symptoms discussed with the patient. Reviewed appropriate action plan to take if red flag symptoms occur. Patient agreeable to treatment plan. LULI Observed: 01/06/2018 Status: COMPLETED Source: [place] 10:00 AM [facility] REPOSITORY Office Visit ([facility]) DOM BARBA ([id number]) 1955 F Date Time Provider Department 01/06/18 10:00 AM GUADALUPE ABEBE (ELIZABETH) [facility] During your visit today, we recorded the following information about you: Pulse Respiration Blood pressure Weight 64/minute 16/minute 120/70 74.9 kg Guadalupe Abebe CNP 01/06/2018 1:59 PM Signed 01/06/2018 Patient presents with: Knee Pain: lft knee for about a week, some swelling ,nor redness or warmth. feels like chintan horses SUBJECTIVE: This is a 62 year old that is here today for Above Complaints. Right now does not have any pain. Onset: 1 week Location: behind the left knee Duration: Intemittent Characteristics: Stabbing:When first gets up out of chair has stabbing pain, somewhat better when she is on her feet but then after standing for awhile comes back Aggravating features: standing, having foot underneath when sitting and putting pressure on area Alleviating features: rest Radiation: To upper calf at times- feels like ANDquot;going to have a chintan horse.ANDquot; Timing: none Hx of arthritis, varicose veins. 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 Gomez - Colon polyp 2011 - Diabetes mellitus type 2, controlled, without complications ([facility]) - Essential hypertension 01/16/2016 - Female pattern hair loss - History of depression when - History of hyperparathyroidism - Mixed hyperlipidemia 05/31/2009 statin intolerance - Obstructive sleep apnea on CPAP Sibilia - Psoriasis - Rosacea with ocular symptoms - S/P angioplasty with stent 01/09/2017 stents to mid and proximal left anterior descending Art, and angio of ostium of #2 diagonal - Scalp itch - Seasonal allergies Dr Pompa - TIA (transient ischemic attack) 06/2017 - Vitamin D deficiency 2012 ALLERGIES Brilinta [Ticagrelor]; Keflex [Cephalexin]; Lipitor [Atorvastatin]; Lisinopril; Lovastatin; Beardsley [Hydrocodone-Acetaminophen] MEDICATIONS Current Outpatient Prescriptions: dulaglutide (TRULICITY) 0.75 mg/0.5 mL pnij INJECT 0.75 MG SUBCUTANEOUSLY ONCE EACH WEEK ketoconazole (NIZORAL) 2 % shampoo Apply 1 application to affected area once daily as needed. triamterene-hydrochlorothiazide 37.5-25 mg per capsule Take 1 capsule by mouth once daily. By. Dr. Pompa metoprolol succinate ER (TOPROL XL) 25 mg 24 hr tablet Take 1 tablet by mouth twice daily. Per Dr. Gomez aspirin 81 mg chewable tablet Take 1 tablet by mouth once daily. clopidogrel (PLAVIX) 75 mg tablet Take 1 tablet by mouth once daily. metFORMIN (GLUCOPHAGE) 500 mg tablet TAKE ONE TABLET BY MOUTH AFTER BREAKFAST, THEN TWO TABLETS AFTER DINNER lisinopril (ZESTRIL, PRINIVIL) 5 mg tablet Take 1 tablet by mouth once daily. atorvastatin (LIPITOR) 40 mg tablet Take 1 tablet by mouth daily at bedtime. For cholesterol. nitroglycerin sublingual (NITROQUICK) 0.4 mg SL tablet Dissolve 1 tablet under the tongue every 5 minutes as needed for Chest Pain. cholecalciferol, vitamin D3, (VITAMIN D3) 4,000 unit cap Take 1 capsule by mouth once daily. MULTIVITAMIN ORAL Take by mouth. Sawyer-3 Fatty Acids-Vitamin E (FISH OIL) 1,000 mg cap Take 1 capsule by mouth once daily. LACTOBACILLUS ACIDOPHILUS (PROBIOTIC ORAL) Take 1 tablet by mouth once daily. CPAP No current facility-administered medications for this visit. Medications and allergies reviewed by this provider. SOCIAL HISTORY Social History Marital status: Spouse name: Kisha Years of education: 14 Number of children: 3 Occupational History Occupation Employer Comment [employer] Social History Main Topics Smoking status: Former Smoker Packs/day: 1.50 Years: 3.00 Types: Cigarettes Quit date: 11/08/1994 Smokeless status: Never Used Comment: smoked 3 years in mid 90 Alcohol use: No Drug use: No Sexual activity: Yes Partners with: Male Social History Narrative 3 children. 06/2011. 1st child suicide at 17. Remarried. REVIEW OF SYSTEMS All other reviewed and negative other than HPI. OBJECTIVE: BP 120/70 (BP Site: Left Arm, BP Position: Sitting, BP Cuff Size: Regular Adult) Pulse 64 Resp 16 Wt 74.9 kg (165 lb 1.9 oz) BMI 29.25 kg/m2. Vital signs reviewed by this provider. APPEARANCE Well appearing, alert, in no acute distress, well- hydrated, well nourished. Left Knee: small non-pulsatile small cyst like structure to popliteal fossa. Small amount of posterior medial swelling. No calf swelling, erythema, warmth, or discoloration. Gait WNL. Several varicose veins to left lower leg. Pain on palpation to popliteal fossa. ASSESSMENT/PLAN: 1. Posterior left knee pain - ICD9: 719.46, ICD10: M25.562 - consistent with bakers cyst - no red flag exam findings - red flag exam findings discussed, patient verbalizes understanding - discussed resting and tylenol- if she is allowed to take NSAIDS for short period she may - discussed options such as steroid injections but she would like to wait a couple of weeks- sees [facility] - Will update in my chart message in 1-2 weeks - follow-up as needed Guadalupe Podlogar, ELIZABETH Prescription instructions reviewed with patient as applicable. Patient advised if symptoms do not improve or if symptoms worsen sooner, to contact their primary care physician. Potential red flag symptoms discussed with the patient. Reviewed appropriate action plan to take if red flag symptoms occur. Patient agreeable to treatment plan. Referring Provider: SELF [[id number]] Allergies As of Date: 01/06/2018 Noted Allergy Reaction BRILINTA (TICAGRELOR) 06/28/2017 12 - Shortness of Breath KEFLEX (CEPHALEXIN) 02/02/2006 Comments: facial flushing LIPITOR (ATORVASTATIN) 07/21/2013 14 - Other: See Comments Comments: myalgia LISINOPRIL 07/21/2013 3 - Cough LOVASTATIN 07/21/2013 14 - Other: See Comments Comments: myalgia NORCO (HYDROCODONE-ACETAMINOPHEN) 10/29/2016 9 - Itching Date Reviewed: 01/06/2018 Reviewed by: Kat Caro LPN - Fully Assessed Reason for Visit: Knee Pain [132] Cmt: lft knee for about a week, some swelling ,nor redness or warmth. feels like chintan horses Primary Visit Diagnosis:Posterior left knee pain [M25.562] Prescriptions as of 01/06/2018 Sig: DULAGLUTIDE 0.75 MG/0.5 ML HERNANDEZ* INJECT 0.75 MG SUBCUTANEOUSLY* KETOCONAZOLE 2 % SHAMPOO Apply 1 application to affect* TRIAMTERENE 37.5 MG-HYDROCHLO* Take 1 capsule by mouth once * METOPROLOL SUCCINATE ER 25 MG* Take 1 tablet by mouth twice * ASPIRIN 81 MG CHEWABLE TABLET Take 1 tablet by mouth once d* CLOPIDOGREL 75 MG TABLET Take 1 tablet by mouth once d* METFORMIN 500 MG TABLET TAKE ONE TABLET BY MOUTH AFTE* LISINOPRIL 5 MG TABLET Take 1 tablet by mouth once d* ATORVASTATIN 40 MG TABLET Take 1 tablet by mouth daily * NITROGLYCERIN 0.4 MG SUBLINGU* Dissolve 1 tablet under the t* CHOLECALCIFEROL (VITAMIN D3) * Take 1 capsule by mouth once * MULTIVITAMIN ORAL Take by mouth. OMEGA-3 FATTY ACIDS-VITAMIN E* Take 1 capsule by mouth once * PROBIOTIC ORAL Take 1 tablet by mouth once d* * CPAP Problem List As Of Date 01/06/2018 Noted Resolved Mixed hyperlipidemia [E78.2] INVALID FOR* Priority: A More... Obstructive sleep apnea on CPAP [G47.33, Z99.89] Priority: B More... Scalp itch [L29.9] Priority: D Seasonal allergies [J30.2] Priority: B More... History of depression [Z86.59] Priority: B More... More... Arthritis [M19.90] Priority: M More... Rosacea [L71.9] Priority: D More... History of hyperparathyroidism [Z86.39] Priority: B More... 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 Diabetic eye exam (HCC) [E11.9, Z01.00] INVALID FOR* Priority: A More... Well adult exam [Z00.00] INVALID FOR* Priority: E More... Colon cancer screening [Z12.11] INVALID FOR* Controlled type 2 diabetes mellitus without com*INVALID FOR* Priority: A Atherosclerosis of [place] coronary artery with *INVALID FOR* Priority: A More... S/P angioplasty with stent [Z95.9] INVALID FOR* Priority: A More... Meniere disease, right [H81.01] INVALID FOR* Priority: B Amaurosis fugax [G45.3] INVALID FOR* Priority: A More... Follow-up and Disposition History Recorded Encounter Status:Closed by PODLOGARGAUDALUPE CNP on 01/06/18 PROGRESS Observed: 10/29/2017 Status: COMPLETED Source: [place] 10:32 AM [facility] RE[facility] HNO ID: [id number] Author: Clifton Hung Service: (none) Author Type: Physician Type: Progress Notes Filed: 10/29/2017 2:15 PM Note Text: Chief Complaint Patient presents with: Recheck: 4 months HPI Dom Barba is a 62 year old female who presents here today for Chronic Medical Conditions.. Patient with Hx as documented and reviewed below. Has not had any further TIA symptoms since June 2017. Has been diagnosed with Meniere's Dz on the right by ENT and HCTZ stopped and placed on diazide. Past medical history, appointments, medications, allergies reviewed. 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 Gomez - Colon polyp 2011 - Diabetes mellitus type 2, controlled, without complications (HCC) - Essential hypertension 01/16/2016 - Female pattern hair loss - History of depression when - History of hyperparathyroidism - Mixed hyperlipidemia 05/31/2009 statin intolerance - Obstructive sleep apnea on CPAP Sibilia - Psoriasis - Rosacea with ocular symptoms - S/P angioplasty with stent 01/09/2017 stents to mid and proximal left anterior descending Art, and angio of ostium of #2 diagonal - Scalp itch - Seasonal allergies Dr Pompa - TIA (transient ischemic attack) 06/2017 - Vitamin D deficiency 2012 Previous Surgical History PAST SURGICAL HISTORY Procedure Laterality Date - 2D ECHO (EXEP) 06/30/2017 EF=65%, trivial [place], TI and 1+ PI Unchanged from 04/2017 - BUNIONECTOMY, LAPIDUS-TYPE 2009 left great toe - DELIVERY ONLY - COLONOSCOPY 08/07/15 no polyps, recheck 3-5 yrs - COLONOSCOPY AND POLYPECTOMY 10/12, 10/13 Dr Barba; hyperplastic polyps - HEART CATHETERIZATION 2004 heart cath-normal per patient - HEART CATHETERIZATION 01/04/2017 EF=60%, left anterior desending septal perferator 95-99% stenosis and diagonal branch 85% stenosis, - LOW BACK DISK SURGERY 2009 microdecompression L4 L5 - PAST SURGICAL HISTORY OF 2004 parathyroidectomy x1 - PAST SURGICAL HISTORY OF lipoma x2 - PAST SURGICAL HISTORY OF 10/13 left foot surgery (bone cyst in heel, removed) - PAST SURGICAL HISTORY OF 2014 bilateral carpel tunnel - PAST SURGICAL HISTORY OF Right 10/2016 trigger finger release x2 - REMOVAL GALLBLADDER 2004 Cholecystectomy - STENT PLACEMENT 01/06/2017 stents to mid and proximal left anterior descending Art, and angio of ostium of #2 diagonal - STRESS TEST 04/20/2017 WNL - TOTAL ABDOM HYSTERECTOMY 1995 LEDA for benign fibroid, ovaries intact Family History FAMILY HISTORY Problem Relation Age of Onset - Pancreatic cancer [OTHER] Mother - Coronary Artery Disease Father 25 [place] @ 25. CABG - Diabetes Paternal Grandmother - Diabetes Maternal Grandfather - Lung cancer [OTHER] Brother - suicide [OTHER] Son may of been depression Patient Allergies ALLERGIES Allergen Reactions - Brilinta [Ticagrelo* Shortness of Breath - Keflex [Cephalexin] facial flushing - Lipitor [Atorvastat* Other: See Comments myalgia - Lisinopril Cough - Lovastatin Other: See Comments myalgia - Beardsley [Hydrocodone-* Itching Current Medications Current Outpatient Prescriptions on File Prior to Visit: metoprolol succinate ER (TOPROL XL) 25 mg 24 hr tablet Take 1 tablet by mouth twice daily. Per Dr. Gomez aspirin 81 mg chewable tablet Take 1 tablet by mouth once daily. clopidogrel (PLAVIX) 75 mg tablet Take 1 tablet by mouth once daily. dulaglutide (TRULICITY) 0.75 mg/0.5 mL pnij INJECT 0.75 MG SUBCUTANEOUSLY ONCE EACH WEEK ketoconazole (NIZORAL) 2 % shampoo Apply 1 application to affected area once daily as needed. metFORMIN (GLUCOPHAGE) 500 mg tablet TAKE ONE TABLET BY MOUTH AFTER BREAKFAST, THEN TWO TABLETS AFTER DINNER lisinopril (ZESTRIL, PRINIVIL) 5 mg tablet Take 1 tablet by mouth once daily. atorvastatin (LIPITOR) 40 mg tablet Take 1 tablet by mouth daily at bedtime. For cholesterol. nitroglycerin sublingual (NITROQUICK) 0.4 mg SL tablet Dissolve 1 tablet under the tongue every 5 minutes as needed for Chest Pain. cholecalciferol, vitamin D3, (VITAMIN D3) 4,000 unit cap Take 1 capsule by mouth once daily. MULTIVITAMIN ORAL Take by mouth. Sawyer-3 Fatty Acids-Vitamin E (FISH OIL) 1,000 mg cap Take 1 capsule by mouth once daily. LACTOBACILLUS ACIDOPHILUS (PROBIOTIC ORAL) Take 1 tablet by mouth once daily. CPAP No current facility-administered medications on file prior to visit. Social History Social History Marital status: Spouse name: Kisha Years of education: 14 Number of children: 3 Occupational History Occupation Employer Comment [employer] Social History Main Topics Smoking status: Former Smoker Packs/day: 1.50 Years: 3.00 Types: Cigarettes Quit date: 11/08/1994 Smokeless status: Never Used Comment: smoked 3 years in mid Alcohol use: No Drug use: No Sexual activity: Yes Partners with: Male Social History Narrative 3 children. 06/2011. 1st child suicide at 17. Remarried. Review of Symptoms REVIEW OF SYSTEMS GENERAL: No weight loss, malaise or fevers NECK: Negative for lumps, goiter, pain and significant neck swelling RESPIRATORY: Negative for cough, hemoptysis, wheezing, COPD, dyspnea or shortness of breath CARDIOVASCULAR: Negative for chest pain, leg swelling, hypertension, CHF. Occasional palpitations that are sporadic and last seconds with no associated cardio or neurologic symptoms. GI: No nausea, vomiting, or diarrhea and No heartburn or reflux symptoms : No history of dysuria or blood ENDOCRINE: no low BS's. FBS's: avg 120 NEURO: No history of headaches, syncope, paralysis, seizures or tremors EXAM: BP 112/68 (BP Site: Right Arm, BP Position: Sitting, BP Cuff Size: Regular Adult) Pulse 78 Resp 14 Ht 160 cm (5' 3) Wt 73.9 kg (163 lb) BMI 28.87 kg/m2 General Appearance: Well appearing, alert, in no acute distress, well-hydrated, well nourished.. Eyes: Anicteric sclera. Pupils are equally round and reactive to light. Extraocular movements are intact. . Oropharynx: Lips, mucosa, and tongue normal, teeth and gums normal, oropharynx normal. Neck: Supple, no adenopathy; thyroid symmetric, normal size, no bruits. Lungs: Lungs clear to auscultation. No wheezing, rhonchi, rales. Heart: RRR without murmur, gallop, or rubs. No ectopy. Abdomen: Normal abdominal exam, Abdomen soft, non-tender. Bowel sounds normal. No masses, organomegaly. Extremities: No deformities, edema, skin discoloration . Musculoskeletal: Muscular strength intact, No joint swelling, deformity, or tenderness. Peripheral Pulses: Normal. Neurologic: Gait normal. Reflexes normal and symmetric. Sensation to light touch and crainal nerves 2-12 intact.. Health Maintenance List MAMMOGRAM due on 11/25/2017 URINE ALBUMIN CREATININE RATIO due on 02/25/2018 HBA1C due on 04/25/2018 DIABETIC FOOT EXAM due on 06/28/2018 DILATED RETINAL EXAM due on 07/22/2018 LDL due on 10/25/2018 COLORECTAL CANCER SCREENING,SEE MODIFIER due on 08/07/2020 TETANUS due on 02/24/2024 ONE PNEUMOVAX PRIOR TO AGE 65 Completed INFLUENZA Completed HEPATITIS C SCREENING Completed Data reviewed Component Latest Ref Rng AND Units 06/24/2017 07/14/2017 10/25/2017 WBC 3.70 - 11.00 k/uL 5.88 RBC 3.90 - 5.20 m/uL 4.29 Hemoglobin 11.5 - 15.5 g/dL 13.0 Hematocrit 36.0 - 46.0 % 42.2 MCV 80.0 - 100.0 fL 98.4 MCH 26.0 - 34.0 pG 30.3 MCHC 30.5 - 36.0 g/dL 30.8 RDW-CV 11.5 - 15.0 % 14.2 Platelet Count 150 - 400 k/uL 219 MPV 9.0 - 12.7 fL 10.2 Neut% % 56.8 Abs Neut (ANC) 1.45 - 7.50 k/uL 3.34 Lymph% % 32.7 Abs Lymph 1.00 - 4.00 k/uL 1.92 Harper% % 9.0 Abs Harper 0.00 - 0.86 k/uL 0.53 Eosin% % 1.2 Abs Eosin 0.00 - 0.45 k/uL 0.07 Baso% % 0.3 Abs Baso 0.00 - 0.10 k/uL 0.02 Nucleated Reds 0 /100 WBC 0.0 Absolute nRBC k/uL 0.00 Diff Type Auto Diff Triglyceride 30 - 149 mg/dL 103 122 Cholesterol 100 - 199 mg/dL 119 145 HDL Cholesterol >55 mg/dL 35 (L) 44 (L) VLDL Cholesterol 6 - 40 mg/dL 21 24 LDL Cholesterol 60 - 129 mg/dL 63 77 Fasting Time hrs 12 11 TC:HDL Ratio 1.00 - 5.00 3.40 3.30 LDL:HDL Ratio 0.50 - 3.55 1.80 1.75 Non HDL Cholesterol 90 - 159 mg/dL 84 (L) 101 Albumin 3.9 - 4.9 g/dL 4.1 Bilirubin, Total 0.2 - 1.3 mg/dL 0.3 Bilirubin, Conjug <0.2 mg/dL <0.2 Alkaline Phosphatase 32 - 117 U/L 51 AST 13 - 35 U/L 26 ALT 7 - 38 U/L 27 Protein, Total 6.3 - 8.0 g/dL 7.1 Hemoglobin A1C 4.3 - 5.6 % 6.2 (H) 7.2 (H) Estimated Average Glucose mg/dL 131 160 A/P ASSESSMENT/PLAN: 1. Controlled type 2 diabetes mellitus without complication, without long-term current use of insulin (HCC) - ICD9: 250.00, ICD10: E11.9 (primary diagnosis) uncontrolled - Continue current medications - Encouraged regular aerobic exercise and weight loss - BP goal of <130/80 - LDL goal of <100 - Get back to better low carb diet. 2. Essential hypertension - ICD9: 401.9, ICD10: I10 - good control - Continue current medication(s) - Recommended regular aerobic exercise. - Recommend home blood pressure monitoring, to bring results in on next visit - Goal of BP <130/80 3. Mixed hyperlipidemia - ICD9: 272.2, ICD10: E78.2 - good control - Continue current medication. - Continue current dose of atorvastatin (Lipitor) 40 mg. 4. Meniere disease, right - ICD9: 386.00, ICD10: H81.01 - Cont f/u with ENT and current meds. 5. Atherosclerosis of [place] coronary artery of [place] heart with stable angina pectoris (HCC) - ICD9: 414.01, 413.9, ICD10: I25.118 - clinically stable no changes cont with cardio f/u 6. Obstructive sleep apnea on CPAP - ICD9: 327.23, V46.8, ICD10: G47.33, Z99.89 - benefiting with CPAP and uses regularly. 7. Amaurosis fugax - ICD9: 362.34, ICD10: G45.3 - CONSULT TO NEUROLOGY 8. Seasonal allergic rhinitis, unspecified chronicity, unspecified trigger - ICD9: 477.9, ICD10: J30.2 - Cont with Dr. Luis ENT 9. Vitamin D deficiency - ICD9: 268.9, ICD10: E55.9 - Cont replacement. F/u 4 months routine, check CMP, FLP, UA, Urine Albumin, A1c and Vit D. Time with patient face to face was 25 min Clifton Hugn MD CNOV Observed: 10/29/2017 Status: COMPLETED Source: [place] 9:40 AM [facility] REPOSITORY [facility] DOM BARBA ([id number]) 1955 F Date Time Provider Department 10/29/17 9:40 AM [facility] During your visit today, we recorded the following information about you: Pulse Respiration Blood pressure Weight 78/minute 14/minute 112/68 73.9 kg Height 1.6 m Anitha Medina Ma 10/29/2017 9:44 AM Written Clifton Hung MD 10/29/2017 2:15 PM Signed Chief Complaint Patient presents with: Recheck: 4 months HPI Dom Barba is a 62 year old female who presents here today for Chronic Medical Conditions.. Patient with Hx as documented and reviewed below. Has not had any further TIA symptoms since June 2017. Has been diagnosed with Meniere's Dz on the right by ENT and HCTZ stopped and placed on diazide. Past medical history, appointments, medications, allergies reviewed. 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 Gomez - Colon polyp 2011 - Diabetes mellitus type 2, controlled, without complications ([facility]) - Essential hypertension 01/16/2016 - Female pattern hair loss - History of depression when - History of hyperparathyroidism - Mixed hyperlipidemia 05/31/2009 statin intolerance - Obstructive sleep apnea on CPAP Sibilia - Psoriasis - Rosacea with ocular symptoms - S/P angioplasty with stent 01/09/2017 stents to mid and proximal left anterior descending Art, and angio of ostium of #2 diagonal - Scalp itch - Seasonal allergies Dr Pompa - TIA (transient ischemic attack) 06/2017 - Vitamin D deficiency 2012 Previous Surgical History PAST SURGICAL HISTORY Procedure Laterality Date - 2D ECHO (EXEP) 06/30/2017 EF=65%, trivial [place], TI and 1+ PI Unchanged from 04/2017 - BUNIONECTOMY, LAPIDUS-TYPE 2009 left great toe - DELIVERY ONLY - COLONOSCOPY 08/07/15 no polyps, recheck 3-5 yrs - COLONOSCOPY ANDamp; POLYPECTOMY 10/12, 10/13 Dr Barba; hyperplastic polyps - HEART CATHETERIZATION 2004 heart cath-normal per patient - HEART CATHETERIZATION 01/04/2017 EF=60%, left anterior desending septal perferator 95-99% stenosis and diagonal branch 85% stenosis, - LOW BACK DISK SURGERY 2009 microdecompression L4 L5 - PAST SURGICAL HISTORY OF 2004 parathyroidectomy x1 - PAST SURGICAL HISTORY OF lipoma x2 - PAST SURGICAL HISTORY OF 10/13 left foot surgery (bone cyst in heel, removed) - PAST SURGICAL HISTORY OF 2014 bilateral carpel tunnel - PAST SURGICAL HISTORY OF Right 10/2016 trigger finger release x2 - REMOVAL GALLBLADDER 2004 Cholecystectomy - STENT PLACEMENT 01/06/2017 stents to mid and proximal left anterior descending Art, and angio of ostium of #2 diagonal - STRESS TEST 04/20/2017 WNL - TOTAL ABDOM HYSTERECTOMY 1995 LEDA for benign fibroid, ovaries intact Family History FAMILY HISTORY Problem Relation Age of Onset - Pancreatic cancer [OTHER] Mother - Coronary Artery Disease Father 25 [place] @ 25. CABG - Diabetes Paternal Grandmother - Diabetes Maternal Grandfather - Lung cancer [OTHER] Brother - suicide [OTHER] Son may of been depression Patient Allergies ALLERGIES Allergen Reactions - Brilinta [Ticagrelo* Shortness of Breath - Keflex [Cephalexin] facial flushing - Lipitor [Atorvastat* Other: See Comments myalgia - Lisinopril Cough - Lovastatin Other: See Comments myalgia - [place] [Hydrocodone-* Itching Current Medications Current Outpatient Prescriptions on File Prior to Visit: metoprolol succinate ER (TOPROL XL) 25 mg 24 hr tablet Take 1 tablet by mouth twice daily. Per Dr. Gomez aspirin 81 mg chewable tablet Take 1 tablet by mouth once daily. clopidogrel (PLAVIX) 75 mg tablet Take 1 tablet by mouth once daily. dulaglutide (TRULICITY) 0.75 mg/0.5 mL pnij INJECT 0.75 MG SUBCUTANEOUSLY ONCE EACH WEEK ketoconazole (NIZORAL) 2 % shampoo Apply 1 application to affected area once daily as needed. metFORMIN (GLUCOPHAGE) 500 mg tablet TAKE ONE TABLET BY MOUTH AFTER BREAKFAST, THEN TWO TABLETS AFTER DINNER lisinopril (ZESTRIL, PRINIVIL) 5 mg tablet Take 1 tablet by mouth once daily. atorvastatin (LIPITOR) 40 mg tablet Take 1 tablet by mouth daily at bedtime. For cholesterol. nitroglycerin sublingual (NITROQUICK) 0.4 mg SL tablet Dissolve 1 tablet under the tongue every 5 minutes as needed for Chest Pain. cholecalciferol, vitamin D3, (VITAMIN D3) 4,000 unit cap Take 1 capsule by mouth once daily. MULTIVITAMIN ORAL Take by mouth. Sawyer-3 Fatty Acids-Vitamin E (FISH OIL) 1,000 mg cap Take 1 capsule by mouth once daily. LACTOBACILLUS ACIDOPHILUS (PROBIOTIC ORAL) Take 1 tablet by mouth once daily. CPAP No current facility-administered medications on file prior to visit. Social History Social History Marital status: Spouse name: Kisha Years of education: 14 Number of children: 3 Occupational History Occupation Employer Comment [employer] Social History Main Topics Smoking status: Former Smoker Packs/day: 1.50 Years: 3.00 Types: Cigarettes Quit date: 11/08/1994 Smokeless status: Never Used Comment: smoked 3 years in mid 90 Alcohol use: No Drug use: No Sexual activity: Yes Partners with: Male Social History Narrative 3 children. 06/2011. 1st child suicide at 15. Remarried. Review of Symptoms REVIEW OF SYSTEMS GENERAL: No weight loss, malaise or fevers NECK: Negative for lumps, goiter, pain and significant neck swelling RESPIRATORY: Negative for cough, hemoptysis, wheezing, COPD, dyspnea or shortness of breath CARDIOVASCULAR: Negative for chest pain, leg swelling, hypertension, CHF. Occasional palpitations that are sporadic and last seconds with no associated cardio or neurologic symptoms. GI: No nausea, vomiting, or diarrhea and No heartburn or reflux symptoms : No history of dysuria or blood ENDOCRINE: no low BS's. FBS's: avg 120 NEURO: No history of headaches, syncope, paralysis, seizures or tremors EXAM: BP 112/68 (BP Site: Right Arm, BP Position: Sitting, BP Cuff Size: Regular Adult) Pulse 78 Resp 14 Ht 160 cm (5' 3ANDquot;) Wt 73.9 kg (163 lb) BMI 28.87 kg/m2 General Appearance: Well appearing, alert, in no acute distress, well-hydrated, well nourished.. Eyes: Anicteric sclera. Pupils are equally round and reactive to light. Extraocular movements are intact. . Oropharynx: Lips, mucosa, and tongue normal, teeth and gums normal, oropharynx normal. Neck: Supple, no adenopathy; thyroid symmetric, normal size, no bruits. Lungs: Lungs clear to auscultation. No wheezing, rhonchi, rales. Heart: RRR without murmur, gallop, or rubs. No ectopy. Abdomen: Normal abdominal exam, Abdomen soft, non-tender. Bowel sounds normal. No masses, organomegaly. Extremities: No deformities, edema, skin discoloration . Musculoskeletal: Muscular strength intact, No joint swelling, deformity, or tenderness. Peripheral Pulses: Normal. Neurologic: Gait normal. Reflexes normal and symmetric. Sensation to light touch and crainal nerves 2-12 intact.. Health Maintenance List MAMMOGRAM due on 11/25/2017 URINE ALBUMIN CREATININE RATIO due on 02/25/2018 HBA1C due on 04/25/2018 DIABETIC FOOT EXAM due on 06/28/2018 DILATED RETINAL EXAM due on 07/22/2018 LDL due on 10/25/2018 COLORECTAL CANCER SCREENING,SEE MODIFIER due on 08/07/2020 TETANUS due on 02/24/2024 ONE PNEUMOVAX PRIOR TO AGE 65 Completed INFLUENZA Completed HEPATITIS C SCREENING Completed Data reviewed Component Latest Ref Rng ANDamp; Units 06/24/2017 07/14/2017 10/25/2017 WBC 3.70 - 11.00 k/uL 5.88 RBC 3.90 - 5.20 m/uL 4.29 Hemoglobin 11.5 - 15.5 g/dL 13.0 Hematocrit 36.0 - 46.0 % 42.2 MCV 80.0 - 100.0 fL 98.4 MCH 26.0 - 34.0 pG 30.3 MCHC 30.5 - 36.0 g/dL 30.8 RDW-CV 11.5 - 15.0 % 14.2 Platelet Count 150 - 400 k/uL 219 MPV 9.0 - 12.7 fL 10.2 Neut% % 56.8 Abs Neut (ANC) 1.45 - 7.50 k/uL 3.34 Lymph% % 32.7 Abs Lymph 1.00 - 4.00 k/uL 1.92 Harper% % 9.0 Abs Harper 0.00 - 0.86 k/uL 0.53 Eosin% % 1.2 Abs Eosin 0.00 - 0.45 k/uL 0.07 Baso% % 0.3 Abs Baso 0.00 - 0.10 k/uL 0.02 Nucleated Reds 0 /100 WBC 0.0 Absolute nRBC k/uL 0.00 Diff Type Auto Diff Triglyceride 30 - 149 mg/dL 103 122 Cholesterol 100 - 199 mg/dL 119 145 HDL Cholesterol ANDgt;55 mg/dL 35 (L) 44 (L) VLDL Cholesterol 6 - 40 mg/dL 21 24 LDL Cholesterol 60 - 129 mg/dL 63 77 Fasting Time hrs 12 11 TC:HDL Ratio 1.00 - 5.00 3.40 3.30 LDL:HDL Ratio 0.50 - 3.55 1.80 1.75 Non HDL Cholesterol 90 - 159 mg/dL 84 (L) 101 Albumin 3.9 - 4.9 g/dL 4.1 Bilirubin, Total 0.2 - 1.3 mg/dL 0.3 Bilirubin, Conjug ANDlt;0.2 mg/dL ANDlt;0.2 Alkaline Phosphatase 32 - 117 U/L 51 AST 13 - 35 U/L 26 ALT 7 - 38 U/L 27 Protein, Total 6.3 - 8.0 g/dL 7.1 Hemoglobin A1C 4.3 - 5.6 % 6.2 (H) 7.2 (H) Estimated Average Glucose mg/dL 131 160 A/P ASSESSMENT/PLAN: 1. Controlled type 2 diabetes mellitus without complication, without long-term current use of insulin (HCC) - ICD9: 250.00, ICD10: E11.9 (primary diagnosis) uncontrolled - Continue current medications - Encouraged regular aerobic exercise and weight loss - BP goal of ANDlt;130/80 - LDL goal of ANDlt;100 - Get back to better low carb diet. 2. Essential hypertension - ICD9: 401.9, ICD10: I10 - good control - Continue current medication(s) - Recommended regular aerobic exercise. - Recommend home blood pressure monitoring, to bring results in on next visit - Goal of BP ANDlt;130/80 3. Mixed hyperlipidemia - ICD9: 272.2, ICD10: E78.2 - good control - Continue current medication. - Continue current dose of atorvastatin (Lipitor) 40 mg. 4. Meniere disease, right - ICD9: 386.00, ICD10: H81.01 - Cont f/u with ENT and current meds. 5. Atherosclerosis of [place] coronary artery of [place] heart with stable angina pectoris (HCC) - ICD9: 414.01, 413.9, ICD10: I25.118 - clinically stable no changes cont with cardio f/u 6. Obstructive sleep apnea on CPAP - ICD9: 327.23, V46.8, ICD10: G47.33, Z99.89 - benefiting with CPAP and uses regularly. 7. Amaurosis fugax - ICD9: 362.34, ICD10: G45.3 - CONSULT TO NEUROLOGY 8. Seasonal allergic rhinitis, unspecified chronicity, unspecified trigger - ICD9: 477.9, ICD10: J30.2 - Cont with Dr. Luis ENT 9. Vitamin D deficiency - ICD9: 268.9, ICD10: E55.9 - Cont replacement. F/u 4 months routine, check CMP, FLP, UA, Urine Albumin, A1c and Vit D. Time with patient face to face was 25 min MD Clifton Chadwick MD 10/29/2017 10:55 AM Signed Please get fasting labs on or after 02/18/2018 prior to next visit. Referring Provider: CLIFTON HUNG [[id number]] Allergies As of Date: 10/29/2017 Noted Allergy Reaction BRILINTA (TICAGRELOR) 06/28/2017 12 - Shortness of Breath KEFLEX (CEPHALEXIN) 02/02/2006 Comments: facial flushing LIPITOR (ATORVASTATIN) 07/21/2013 14 - Other: See Comments Comments: myalgia LISINOPRIL 07/21/2013 3 - Cough LOVASTATIN 07/21/2013 14 - Other: See Comments Comments: myalgia NORCO (HYDROCODONE-ACETAMINOPHEN) 10/29/2016 9 - Itching Date Reviewed: 10/29/2017 Reviewed by: Clifton Hung - Fully Assessed Reason for Visit: Recheck [92] Cmt: 4 months Primary Visit Diagnosis:Controlled type 2 diabetes mellitus without complication, without long-term current use of insulin (HCC) [E11.9] Other Visit Diagnoses:Essential hypertension [I10] Mixed hyperlipidemia [E78.2] Meniere disease, right [H81.01] 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 By. Dr. Spencer: Rfl: CONSULT TO NEUROLOGY [2372] Order #: [id number]: 1 VITAMIN D 25 HYDROXY [SQVITD] Order #: [id number] FUTURE COMP METABOLIC PANEL [SQCMP] Order #: [id number] FUTURE HGB A1C [ZDBSF3Q] Order #: [id number] FUTURE LIPID PANEL BASIC [SQLIPB] Order #: [id number] FUTURE URINALYSIS WITH MICROSCOPIC [SQUAWMIC] Order #: [id number] FUTURE ALBUMIN/CREAT RATIO RND UR [SQUACR] Order #: [id number] FUTURE Prescriptions as of 10/29/2017 Sig: METOPROLOL SUCCINATE ER 25 MG* Take 1 tablet by mouth twice * ASPIRIN 81 MG CHEWABLE TABLET Take 1 tablet by mouth once d* CLOPIDOGREL 75 MG TABLET Take 1 tablet by mouth once d* DULAGLUTIDE 0.75 MG/0.5 ML HERNANDEZ* INJECT 0.75 MG SUBCUTANEOUSLY* KETOCONAZOLE 2 % SHAMPOO Apply 1 application to affect* METFORMIN 500 MG TABLET TAKE ONE TABLET BY MOUTH AFTE* LISINOPRIL 5 MG TABLET Take 1 tablet by mouth once d* ATORVASTATIN 40 MG TABLET Take 1 tablet by mouth daily * NITROGLYCERIN 0.4 MG SUBLINGU* Dissolve 1 tablet under the t* CHOLECALCIFEROL (VITAMIN D3) * Take 1 capsule by mouth once * MULTIVITAMIN ORAL Take by mouth. OMEGA-3 FATTY ACIDS-VITAMIN E* Take 1 capsule by mouth once * PROBIOTIC ORAL Take 1 tablet by mouth once d* * CPAP TRIAMTERENE 37.5 MG-HYDROCHLO* Take 1 capsule by mouth once * Medication notes this encounter HYDROCHLOROTHIAZIDE 25 MG TABLET >> Clifton Hung MD 10/29/2017 10:31 AM ENT Problem List As Of Date 10/29/2017 Noted Resolved Mixed hyperlipidemia [E78.2] INVALID FOR* Priority: A More... Obstructive sleep apnea on CPAP [G47.33, Z99.89] Priority: B More... Scalp itch [L29.9] Priority: D Seasonal allergies [J30.2] Priority: B More... History of depression [Z86.59] Priority: B More... More... Arthritis [M19.90] Priority: M More... Rosacea [L71.9] Priority: D More... History of hyperparathyroidism [Z86.39] Priority: B More... 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 Diabetic eye exam (HCC) [E11.9, Z01.00] INVALID FOR* Priority: A More... Well adult exam [Z00.00] INVALID FOR* Priority: E More... Colon cancer screening [Z12.11] INVALID FOR* Controlled type 2 diabetes mellitus without com*INVALID FOR* Priority: A Atherosclerosis of [place] coronary artery with *INVALID FOR* Priority: A More... S/P angioplasty with stent [Z95.9] INVALID FOR* Priority: A More... Meniere disease, right [H81.01] INVALID FOR* Priority: B Amaurosis fugax [G45.3] INVALID FOR* Priority: A More... Other instructions from your clinician: Please get fasting labs on or after 02/18/2018 prior to next visit. Prescriptions ordered this encounter Disp Refills Start End TRIAMTERENE 37.5 MG-HYDROCHLOROTHIAZ* 10/29/2017 Class: Med Update Route: ORAL Sig: Take 1 capsule by mouth once daily. By. Dr. Pompa Medications Discontinued During This Encounter hydroCHLOROthiazide (HYDRODIURIL, ES* 90 t* 1 10/29/2016 10/29/2017 Route: ORAL Sig: Take 1 tablet by mouth once daily. Disc: Discontinued by another Health Care Provider Disposition: Return in about 4 months (around 02/27/2018) for routine. Follow-up and Disposition History Recorded Encounter Status:Closed by CLIFTON HUNG on 10/29/17 CARDIOLOGY VISIT Observed: 10/28/2017 Status: F Source: [facility] REPORT 5:05 PM [facility] REPOSITORY [facility] [address] [place] [address] OFFICE VISIT Date of Service: 10/25/17 MR#: [id number] Acct: [id number] Name: DOM BARBA Rep #: [id number] : 1955 Provider: NIRAJ Humphries Age/Sex: 62/F Location[place] [facility] Status: Signed HPI 6 M FU: Chief Complaint: Routine Follow-up Details: DOM BARBA, is a 62 F who presents to the office today for a cardiovascular outpatient follow-up. She is a history of coronary artery disease status post PCI to mid and proximal LAD and balloon angioplasty to ostium of diagonal 2 in December 2016, hypertension, hyperlipidemia, palpitations, SEBAS, and dizziness. Pt denies chest, arm, jaw, or neck discomfort. Her exercise tolerance is stable. Pt denies symptoms of CHF, palpitations, near syncopal or syncopal episodes. Pt denies edema or claudication issues. Pt. denies orthopnea, PND, fever, chills, blood in urine, blood in stool, myalgia, or unexplainable fatigue. Pt. states some SOB noticed with long walks this improves with rest. She states occasional lightheadedness and dizziness that is better. She states that her lower extremity edema has improved. She states occasional leg cramps. Pt. states wearing CPAP at night. Echocardiogram from June 2017 showed an estimated ejection fraction of 65%, normal diastology for age, bubble contrast study negative for right to left interatrial shunt, trivial tricuspid valve insufficiency, RVSP of 30 mmHg, and when compared to previous study in April 2017 no appreciable changes noted. 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 [Ecotrin] 81 mg PO DAILY@0800 #30 tab 01/05/17 [Rx Confirmed 10/22/17] Atorvastatin Calcium [Lipitor] 40 mg PO QHS #30 tab 01/05/17 [Rx Confirmed 10/22/17] Lisinopril [Zestril] 5 mg PO DAILY #30 tab 01/05/17 [Rx Confirmed 10/22/17] Nitroglycerin [Nitrostat] 0.4 mg SUBLINGUAL Q5M PRN #25 tab 01/05/17 [Rx Confirmed 10/22/17] Clopidogrel Bisulfate [Plavix] 75 mg PO DAILY 06/29/17 [History Confirmed 10/22/17] metformin ER 500 mg 24 hr tablet,extended release 500 mg PO BID tab 10/22/17 [History Confirmed 10/22/17] metoprolol tartrate 25 mg tablet 25 mg PO BID 10/22/17 [History Confirmed 10/22/17] magnesium 200 mg tablet 200 mg PO QDAY 10/25/17 [History Confirmed 10/25/17] triamterene 37.5 mg-hydrochlorothiazide 25 mg capsule 1 cap PO .every other day cap 10/25/17 [History Confirmed 10/25/17] Ejection fraction %: 65 to 70 PFSH Medical History Palpitations (Chronic) Dizziness (Chronic) Encounter for long-term (current) use of other medications (Chronic) Atherosclerotic heart disease of [place] coronary artery without angina pectoris (Chronic) TIA (transient ischemic attack) (Chronic) Chest pain (Resolved) DM2 (diabetes mellitus, type 2) (Chronic) HTN (hypertension) (Chronic) Angina pectoris (Resolved) Cardiovascular stress test abnormal (Resolved) HLD (hyperlipidemia) (Chronic) Surgical History S/P angioplasty with stent (Chronic) Family History Mother Cancer pancreatic cancer Father , [place] age 20's (premature CAD), 3 vessel CABG, hyperlipidemia, CHf Myocardial infarction CAD (coronary artery disease) Brother Cancer lung cancer Social History Smoking Status: Former smoker quit date: 11/08/87 pack-years: 6 how long ago did patient quit smokin second hand exposure: Yes alcohol intake: never substance use type: does not use caffeine: Yes Type: coffee Number of servings: 2 what type of physical activity do you participate in: none seatbelt use: always do you feel safe at home: Yes ROS Const Const: Negative for body ache, fever(s), chills, fatigue or weakness ENT ENT: Positive for dizziness Cardio Chest Pain: No Palpitations: Positive for No Edema: None Muscle aches with walking: None Resp Respiratory: Positive for SOB with activity; negative for SOB at rest, SOB orthopnea\SOB lying down or paroxysmal nocturnal dyspnea GI GI: Negative nausea, black,tarry stools, bright, red blood in stools or vomiting blood/hematemesis : Negative for hematuria or frequent nighttime urination/ nocturia Musc Musc: Negative for muscle aches/ myalgia Neuro Neuro: Positive for dizziness, Positive for lightheadedness, Negative for near syncope, Negative for syncope, Negative for orthostatic symptoms, Negative for confusion, Negative for weakness Endo Endo: Negative for fatigue Cardiology Exam Const Appearance: cooperative, healthy appearing, comfortable and no acute distress Orientation: alert, awake and oriented x3 Head Head: normal to inspection Mouth: oral mucosae normal Neck Neck: no JVD and normal visual inspection Carotids: normal carotid upstroke Chest Chest inspection: normal inspection of the chest and normal respiratory effort Auscultation: Bilateral: Clear to Auscultation Cardio Rate: regular rate Rhythm: regular rhythm Heart sounds: S1 normal and S2 normal GI GI: normal to inspection Neuro General: alert, awake, oriented x3 and CN's II-XI intact bilaterally Skin Skin: no rashes or lesions noted Extremities Pulses: Normal: Right Posterior Tibial Pulse, Left Posterior Tibial Pulse, Right Radial Pulse, Left Radial Pulse Lower Extremity Edema: None: Bilateral Psych Psychological: normal affect Assessment AND Plan 1. Atherosclerosis of [place] coronary artery of [place] heart without angina pectoris I25.10; I25.10; I25.10 NEGRO [place] Patient denies any chest pain, arm pain, jaw pain, neck pain, shortness of breath, or fatigue suggestive of angina at this time. We will continue to monitor this. We will not make any medication regimen changes and will continue risk factor modification. 2. Transient cerebral ischemia, unspecified type G45.9; G45.9; G45.9 Occurred June 2017, seen by Dr. Berry at [facility] NEGRO [place] Patient was evaluated for this in 2017 due to concerning symptoms of confusion. She denies any confusion episodes since then. Patient denies any residual deficits from this. She denies having any upcoming or necessary neurology appointment. We will continue current medications. 3. Essential hypertension I10 NEGRO [place] Patient blood pressure is slightly elevated today in office. She states that she just took medications prior to coming to office visit. She states not following the best diet or any specific activity plan of late due to psychosocial stressors. She was advised to continue to monitor blood pressure at home both later today and prior to upcoming primary care physician appointment. If blood pressure remains elevated at home and at primary care physician we will consider medication adjustment. We will have do this cautiously given her history of dizziness. The first medication that could be adjusted as her lisinopril. 4. Mixed hyperlipidemia E78.2; E78.2; E78.2 NEGRO Menendez Her most recent lipid panel from June 2017 includes cholesterol: 117, HDL: 37, LDL: 56, and triglycerides: 122. She has upcoming appointment with primary care physician in 1 week and will have laboratory work drawn prior to this visit. We will continue current medications. 5. Dizziness R42 Plan - NEGRO [place] Patient states this is much improved since previous medication adjustments and since starting Dyazide medication. She does continue to get some dizziness with quick position changes with her head. We will continue to monitor this. We will not make any medication regimen changes. 6. Palpitations R00.2 Plan - NEGRO [place] Patient does state an occasional episode of palpitation. She states she has been evaluated for this in the past and her palpitations are not as severe as they have been in the past. She denies any secondary symptoms with this. We will continue to monitor this. We will not make any medication regimen changes. Plan Detail Additional Comments - NEGRO [place] Discussed the above patient with Dr. Gomez, he agrees with the plan of care. Thank you for allowing us to participate in the patients plan of care, if you have any questions please do not hesitate to call. This note was generated using a voice recognition system and there may be incorrect words, spelling or punctuation that were not noted when reviewing the office note prior to saving. Follow Up 9 Months (PFM) 10/25/17 1318 <Electronically signed by Octaviano TOM> Date Octaviano TOM 10/28/17 1705<Electronically signed by Ron Gomez MD> Cosigner Signature: Date (if applicable) Ron Gomez MD CC: Clifton Hung MD ALLERGIES ALLERGIES DATE TYPE / CODE NAME / CODE REACTION SEVERITY SOURCE 10/12/2018 Drug cephalexin Other Unknown [place] Allergy/416 monohydrate/[id number] [facility] [id number][facility] 10/12/2018 Drug pravastatin/[id number] [place]GI[place] Unknown [place] Allergy/416 3606(RXNORM) [facility] [id number]([facility] ED CT) Repository 06/28/2017 DRUG TICAGRELOR SHORTNESS OF Med [facility] INGREDI/[address] [place] [id number](SNOM Repository ED CT) 06/28/2017 DRUG TICAGRELOR SHORTNESS OF [facility] INGREDI/[address] [place] 959049(SNOM Repository ED CT) 10/29/2016 DRUG/560188 HYDROCODONE-ACETAM ITCHING [facility] 003(SNOMED INOPHEN [address] [place]) Repository 10/29/2016 DRUG/655465 HYDROCODONE-ACETAM ITCHING [facility] 003(SNOMED INOPHEN [address] [place] [facility]) Repository 07/21/2013 DRUG ATORVASTATIN OTHER: SEE C [facility] INGREDI/[address] [place] 063285(SNOM Repository ED CT) 07/21/2013 DRUG LISINOPRIL COUGH [facility] INGREDI/[address] [place] 756508(SNOM Repository ED CT) 07/21/2013 DRUG LOVASTATIN OTHER: SEE C [facility] INGREDI/[address] [place] 654427(SNOM Repository ED CT) 07/21/2013 DRUG ATORVASTATIN OTHER: SEE C [facility] INGREDI/[address] [place] 979017(SNOM Repository ED CT) 07/21/2013 DRUG LISINOPRIL COUGH [facility] INGREDI/[address] [place] 512101(SNOM Repository ED CT) 07/21/2013 DRUG LOVASTATIN OTHER: SEE C [facility] INGREDI/[address] [place] 141620(SNOM Repository ED CT) 02/02/2006 DRUG CEPHALEXIN OTHER: SEE C [facility] INGREDI/[address] [place] 754081(SNOM Repository ED CT) 02/02/2006 DRUG CEPHALEXIN [facility] INGREDI/[address] [place] 730773(SNOM Repository ED CT) ENCOUNTERS ENCOUNTERS ADMIT/DISCHARGE ACCOUNT ADMITTING ENCOUNTER LOCATION SOURCE NUMBER CLASS 10/14/2018 [id number] [facility] ing:LAB Repository 10/12/2018/10/12/20 [id number] Ambulatory [address] ing:CLSP Repository 10/06/2018 [id number] Ambulatory [facility] Hospital ing:RAD Repository 10/06/2018/10/06/20 [id number] Ambulatory BMSBuilding:Aakash Moya [facility] Repository 10/06/2018/10/07/20 [id number] Ambulatory [address] Repository 10/06/2018/10/06/20 [id number] Ambulatory [address] Repository 09/13/2018 [id number] Ambulatory [facility] ing:CVS Repository 09/13/2018 [id number] Ambulatory BMSBuilding:[facility] Repository 09/08/2018/09/09/20 [id number] Ambulatory [address] Repository 09/08/2018/09/09/20 [id number] Ambulatory [address] Repository 09/01/2018/09/01/20 [id number] Ambulatory [address] Repository 08/22/2018/08/22/20 [id number] Ambulatory BMSBuilding:Aakash Moya 18 [facility] Repository 08/17/2018/08/18/20 [id number] Ambulatory [address] Repository 08/09/2018/08/09/20 [id number] AISHA, Ambulatory [address] Repository 08/02/2018/08/02/20 [id number] Ambulatory [address] Repository 07/21/2018/07/26/20 [id number] Ambulatory [address] Repository 06/13/2018/06/14/20 [id number] Ambulatory [address] Repository 06/06/2018/06/06/20 [id number] Emergency [address] Hospital ing:ED Repository 03/02/2018/03/03/20 [id number] Ambulatory [address] Repository 02/25/2018/02/26/20 [id number] Ambulatory [address] Repository 01/06/2018/01/08/20 [id number] Ambulatory [address] Repository 01/06/2018 [id number] Ambulatory [facility] ing:DC Repository 11/25/2017/11/25/19 [id number] Ambulatory Nita Nita [facility] ing:DC Repository 10/29/2017/10/29/20 [id number] Ambulatory [address] Repository 10/25/2017/10/25/20 [id number] Ambulatory BMSBuilding:B Nita [facility] Repository PAYERS PAYERS ENCOUNTER GUARANTOR PAYER SUBSCRIBER SOURCE 10/14/2018 DOM Crowder Primary DOM Crowder [place] [id number] SR Insurance:ANTHEMPolic LEWISDOB: [address] y Number: [id number] Hospital 73610Udq: (740 [id number] Repository [phone] () ve Date:5264-21-95VI [address] [place] [address] 63624VC: 10/14/2018 Secondary NOT GIVENUNK Nita Insurance:SELF PAY [facility] Number: Effective Repository Date:2018-10-14 10/12/2018 DOM Crowder Primary DOM Crowder [place] [id number] SR Insurance:ANTHEMPolic LEWISDOB: [address] y Number: [id number] Hospital [id number]: (740) [id number] Repository [phone] () ve Date:2906-83-20ZY [address] [place] [address] 90036AI: 10/12/2018 Secondary NOT GIVENUNK Nita Insurance:SELF PAY [facility] Number: Effective Repository Date:2018-10-07 10/06/2018 DOM K Primary DOM Crowder [place] [id number] SR Insurance:ANTHEMPolic LEWISDOB: [address] y Number: [id number] Hospital 70039Lcf: (740) [id number] Repository [phone] () ve Date:9452-08-17BX [id number] [place] [address] 91277FC: 10/06/2018 Secondary NOT GIVENUNK [place] Insurance:SELF PAY [facility] Number: Effective Repository Date:2018-10-06 10/06/2018 DOM Crowder Primary DOM Crowder [place] [id number] SR Insurance:ANTHEMPolic LEWISDOB: Community [address] [place] [address], [place] y Number: [id number] Hospital [id number]: (740) [id number] Repository [phone] (HP) ve Date:8377-87-93CX [address] [place] [address] 25522UN: 10/06/2018 Secondary NOT GIVENUNK N[place] Insurance:SELF PAY [facility] Number: Effective Repository Date:2018-10-06 09/13/2018 DOM K Primary DOM Crowder [place] [id number] SR Insurance:ANTHEMPolic LEWISDOB: [address] y Number: [id number] Hospital 26156Rqr: (740) [id number] Repository [phone] () ve Date:0459-88-26UA [address] [place] [address] 24121XS: 09/13/2018 Secondary NOT GIVENUNK N[place] Insurance:SELF PAY [facility] Number: Effective Repository Date:2018-08-22 09/13/2018 DOM Crowder Primary DOM Crowder [place] [id number] SR Insurance:ANTHEMPolic LEWISDOB: [address] y Number: [id number] Hospital 41175Okx: (740) [id number] Repository [phone] () ve Date:3986-84-99SV [id number] [place] [address] 07207YS: 09/13/2018 Secondary NOT GIVENUNK [place] Insurance:SELF PAY [facility] Number: Effective Repository Date:2018-09-13 08/22/2018 DOM K Primary DOM Crowder [place] [id number] SR Insurance:ANTHEMPolic LEWISDOB: [address] y Number: [id number] Hospital 28287Lye: (740) [id number] Repository [phone] () ve Date:3505-71-61[address]X [address], [place] [address]LX: 08/22/2018 Secondary NOT GIVENUNK [place] Insurance:SELF PAY [facility]: Effective Repository Date:2018-08-22 06/06/2018 DOM K Primary DOM K [place] [id number] SR Insurance:ANTHEMPolic LEWISDOB: Community [address] [place] [address] y Number: [id number] Hospital 07716Ehi: (740) [id number] Repository [phone] () ve Date:2448-25-84[address], [place] [address]AR: 06/06/2018 Secondary NOT GIVENUNK Nita Insurance:SELF PAY [facility] Number: Effective Repository Date:2018-06-06 01/06/2018 DOM Primary DOM Moya [id number] STATE Insurance:ANTHEMPolic LEWISDOB: Community [address] y Number: [id number] Repository [address]Fsa: (740) ve Date:0615-65-78PA [phone] () [address]FC, [place] [address]GJ: 01/06/2018 Secondary NOT GIVENUNK [place] Insurance:SELF PAY [facility] Number: Effective Repository Date:2017-12-09 11/25/2017 DOM Primary DOMGABBIE Moya [id number] STATE Insurance:ANTHEMPolic LEWISDOB: Community [address] y Number: [id number] Repository [address]Tpk: (740) ve Date:0922-41-56WB [phone] () [address], [place] [address]ZO: 11/25/2017 Secondary NOT GIVENUNK N[place] Insurance:SELF PAY [facility] Number: Effective Repository Date:2017-11-25 10/25/2017 DOM Primary DOM Nita [id number] STATE Insurance:ANTHEMPolic LEWISDOB: Community [address] y Number: [id number] [id number] Repository [address]Rcu: (335) ve Date:4958-63-31QI [phone] () [address], [place] [address]YU: 10/25/2017 Secondary NOT GIVENUNK Nita Insurance:SELF PAY [facility] Effective Repository Date:2017-10-09
== END ==
PROVIDERS: Family Provider Family Medicine; PCP Family Medicine; Referring Provider Internal Medicine Cardiovascular Disease; Visit Provider Internal Medicine Cardiovascular Disease
DX: R07.9 Chest pain, unspecified (principal); I25.10 Atherosclerotic heart disease of native coronary artery without angina pectoris; Z95.9 Presence of cardiac and vascular implant and graft, unspecified
CPT/HCPCS: 36415; 71046; 80048; 85027; 85610; 85730

== ENCOUNTER 2018-10-12 06:38 | Day surgery (SDC) | payer BC, SELFPAY ==
[2017-01-04 15:17] VITALS: BMI 30.1
[2018-10-06 13:12] VITALS: BMI 28.7
[2018-10-11 08:39] VITALS: BMI 28.7
--- NOTE | 2018-10-12 08:57 | CL.D_ITS ---
Patient Name: DOM BARBA Study Date: 10/12/2018 Performing: Ron Gomez MD Ht: 62.99 inches 160 cm : 1955 Wt: 160.94 lbs 73 kg Age: 63 Gender: female BSA: 1.76 PROCEDURE(S) PERFORMED [id number]/LV CLINICAL PROFILE AND INDICATIONS Indications: Suspected CAD Heart Failure: None Stress/Imaging Standard Exercise Stress Test: Yes Result: PositiveStress Test with SPECT MPI: Neg ative Angina Classification Anginal Classification w/in 2 Weeks: CCS II CAD Presentations: Stable angina. CONCLUSIONS Elevated Left Ventricular End Diastolic Pressure Normal LV size, wall motion,and systolic function LVEF: by LV gram 65 % RECOMMENDATIONS Risk factor modification Medical therapy DESCRIPTION OF PROCEDURE The patient arrived to the procedure lab. The risks and benefits of the procedure as well as a full d escription of our services here and current unavailability of surgical backup were fully explained to the patient and/or their significant other prior to the catheterization. The Timeout was completed, verifying the correct patient and procedure. The patient's procedural site was prepped and draped in the usual fashion. Local anesthetic was given subcutaneously to right groin region with Lidocaine 2%. Using a modified Seldinger technique, arterial access was obtained via the right femoral artery, a 4 Fr sheath was inserted Left Coronary Artery selective angiography was performed in multiple views us ing a 4 Fr. JL5 catheter. Right Coronary Artery selective angiography was then performed in multiple views using a 4 Fr. 3DRC catheter. Left Ventriculography was performed in MCMANUS projection using a 4 Fr . Pigtail catheter. LV to AO pullback pressures were then recorded.The arterial sheath was pulled and manual compression applied until hemostasis is achieved. CORONARY ANGIOGRAPHY DOMINANCE: Right Dominant LEFT HEART ASSESSMENT Left Ventricular Ejection Fraction: by LV Gram 65 % Normal LV wall motion Elevated Left Ventricular End Diastolic Pressure LVEDP: 19 mmHg LEFT MAIN: Angiographically normal LEFT ANTERIOR DECENDING ARTERY: PROX LAD: Previously placed stent is patent MID LAD: Previously placed stent is patent DIAGONAL 1: Proximal - very small caliber vessel: 50 % Stenosis CIRCUMFLEX ARTERY: Angiographically normal RIGHT CORONARY ARTERY: Angiographically normal VALVE FINDINGS: Normal Aortic Valve function Normal Mitral Valve function AORTIC ROOT: Angiographically normal COMPLICATIONS No Complications PROCEDURE MEDICATIONS Versed 1 mg IV Oxygen: 2 L/min via nasal cannula SUMMARY OF HEMODYNAMIC DATA Time AIR REST ECG 07:18:33 ECG 07:59:03 AO 143/76 (102) SA 08:12:46 LV 146/-5, 22 08:20:07 LV 146/-6, 19 08:20:13 LV 141/-4, 23 08:20:56 LV 140/-4, 20 08:21:02 LVp 147/-4, 18 08:21:11 AOp 149/72 (105) 08:21:16 Signed By Ron Gomez MD On 10/12/2018 08:56:39 Ron Gomez MD
== END 2018-10-12 12:50 | disposition home or self-care (01) ==
LOC: CLSP 06:40
PROVIDERS: Family Provider Family Medicine; PCP Family Medicine; Referring Provider Internal Medicine Cardiovascular Disease; Visit Provider Internal Medicine Cardiovascular Disease
DX: I25.10 Atherosclerotic heart disease of native coronary artery without angina pectoris (principal); R00.2 Palpitations; I10 Essential (primary) hypertension; E78.2 Mixed hyperlipidemia; G47.33 Obstructive sleep apnea (adult) (pediatric); E11.9 Type 2 diabetes mellitus without complications; Z86.73 Personal history of transient ischemic attack (TIA), and cerebral infarction without residual deficits; Z87.891 Personal history of nicotine dependence; Z95.820 Peripheral vascular angioplasty status with implants and grafts
CPT/HCPCS: 93458; 99152; 99153; J7040; C1769; C1894; Q9967

== ENCOUNTER → 2018-10-14 09:50 | Outpatient (CLI) | payer BC, SELFPAY ==
[2017-01-04 15:17] VITALS: BMI 30.1
[2018-10-11 08:39] VITALS: BMI 28.7
[2018-10-14 11:13] LABS: Anion Gap 7 (5-15); BUN 12 mg/dL (7-18); BUN/Creat Ratio 15.2 RATIO (10-20); Calcium,Total 8.7 mg/dL (8.5-10.1); Chloride 102 mmol/L (98-107); Creatinine, Serum 0.79 mg/dL (0.55-1.02); EST Glomerular Filtration Rate 78 mL/min (>60); Est Glom Filt Rate - Afr Amer 95 mL/min (>60); Glucose 149 mg/dL (74-106); Potassium 3.7 mmol/L (3.5-5.1); Sodium Level 142 mmol/L (136-145)
== END ==
PROVIDERS: Family Provider Family Medicine; PCP Family Medicine; Referring Provider Internal Medicine Cardiovascular Disease; Visit Provider Internal Medicine Cardiovascular Disease
DX: I25.10 Atherosclerotic heart disease of native coronary artery without angina pectoris (principal); E11.9 Type 2 diabetes mellitus without complications
CPT/HCPCS: 36415; 80048

== ENCOUNTER → 2018-11-22 10:11 | Outpatient (CLI) | payer BC, SELFPAY ==
[2017-01-04 15:17] VITALS: BMI 30.1
[2018-10-11 08:39] VITALS: BMI 28.7
--- NOTE | 2018-11-22 10:14 | US_ITS ---
STUDY: SUPERFICIAL ULTRASOUND - NONVASCULAR LIMITED REASON FOR EXAM: Female, 63 years old. Soft tissue lump left lateral upper thigh and left cerna. TECHNIQUE: A superficial ultrasound was performed with real-time and static head-scale imaging. COMPARISON: None. FINDINGS: In the left upper lateral thigh corresponding to the palpable mass reported by the patient is a superficial ovoid longitudinally oriented well-circumscribed heterogeneous mass measuring 2.2 x 1.5 x 0.6 cm. Lateral to the mid shaft of the anterior tibia is a superficial hypoechoic nodule measuring 0.6 x 0.6 x 0.3 cm with ill-defined borders. US/Ext Non Vasc Limited/Soft Tiss IMPRESSION: Nonaggressive soft tissue mass upper lateral thigh which is likely benign. This can be followed with ultrasound. 0.6 cm soft tissue nodule mid lower leg with ill-defined borders. This requires additional follow-up with cross-sectional imaging, short term follow-up or biopsy. Electronically Signed: Hector Aleman MD at 2:39 EST , Service support ,
== END ==
LOC: US 10:12
PROVIDERS: Family Provider Family Medicine; PCP Family Medicine; Referring Provider Physician Assistant; Visit Provider Physician Assistant
DX: R22.42 Localized swelling, mass and lump, left lower limb (principal)
CPT/HCPCS: 76882

== ENCOUNTER → 2019-08-25 10:49 | Outpatient (CLI) | payer BC, SELFPAY ==
[2017-01-04 15:17] VITALS: BMI 30.1
[2019-08-23 15:24] VITALS: BMI 29.2
== END ==
PROVIDERS: Family Provider Family Medicine; PCP Family Medicine; Referring Provider Internal Medicine Cardiovascular Disease; Visit Provider Internal Medicine Cardiovascular Disease
DX: R00.2 Palpitations (principal)
CPT/HCPCS: 93225; 93226

== ENCOUNTER → 2021-03-25 10:43 | Outpatient (CLI) | payer BC, SELFPAY ==
[2017-01-04 15:17] VITALS: BMI 30.1
[2020-12-24 13:18] VITALS: BMI 28.8
--- NOTE | 2021-03-25 | IMM_PTH ---
PATIENT: DOM BARBA LOC: [facility] U#:[id number] AGE/SX: 70/F ROOM: RE03/25/[address]: Dr. Kat Brand MD : 1955 BED: DIS: SPEC #: [id number] RECD: 03/27/21 11:22 STATUS: SOL REQ #: [id number] ROMEL: 03/25/21 00:[address]: Kat Brand DEPT: IMMUNOHISTOCHEMISTRY RECD BY: Daysi Quintanilla ENTERED: 03/27/21 11:26 SP TYPE: IMMUNO OTHR DR: Dr. Clifton Jennings MD Tissues: Left breast, NOS Procedures: CALPONIN-1 (add) CK8 (add) E-CAD (add) HER2 NATO (add) FL (add) P40 (add) ER (initial) PHYSICIAN & INSTITUTION [place] [id number] SPECIMEN INFORMATION: Tissue Source: Left breast, 1 o?clock posterior depth Clinical Info: Pleomorphic calcifications left breast 1 o?clock posterior depth Specimen Number: [id number] #2 CPT code: 45713, 57093 x3, 90242 x3 METHODOLOGY: Deparaffinized sections of prefer/formalin-fixed tissue or PAP/DQ stained slides are incubated with monoclonal/polyclonal antibodies/oligonucleotide probes. Localization is made via biotin free immunoperoxidase method. Appropriate controls are performed and reacted as expected. Results on target cell population are indicated in the following table: RESULTS: ANTIBODY / CLONE RESULT Block 2 E-Cad (ECH-6) positive CK8 (76uiodN01) positive Calponin-1 (JT696U) positive P40 (BC28) positive MORPHOMETRIC ANALYSIS ER (clone 6F11) positive (>95%, strong) FL (clone 16/1E2) positive (>95%, strong) Her-2Neu (clone CB11) negative (0) The prognostic test for HER2 is performed on formalin-fixed paraffin embedded tissue. A 3+ (positive) staining pattern is defined as intense, homogeneous, complete, circumferential membranous staining in >10% of contiguous tumor cells. A similar weak (2+) staining pattern is interpreted as equivocal. MADHU follow-up testing is recommended for all equivocal cases. Positivity/negativity for ER/FL is reported if > or < 1% of the tumor cells are immuno- reactive, respectively. The ASCO/CAP criteria is used for scoring. Reference: Journal of Clinical Oncology, 2013; 31:3833-2233 & 2010; 16:9267-4282. Duration of fixation: 8.5 Hrs; Sample Adequate: Yes. These assays have not been validated on decalcified tissues. Results should be interpreted with caution given the likelihood of false negativity on decalcified specimens. These tests were developed and their performance characteristics determined by [facility]. They may not have been cleared or approved by the U.S. Food and Drug Administration. The FDA has determined that such clearance or approval is not necessary. The above immunohistochemical/dualISH markers are ordered and reviewed by the Pathologist. INTERPRETATION: Left breast, 1 o?clock posterior depth, stereotactic core biopsy: Ductal carcinoma in situ, nuclear grade 2. SJ:larry 03/28/2021
--- NOTE | 2021-03-25 11:15 | BRBX_PTH ---
PATIENT: DOM BARBA LOC: [facility] U#:[id number] AGE/SX: 70/F ROOM: RE03/25/[address]: Dr. Kat Brand MD : 1955 BED: DIS: SPEC #: [id number] RECD: 03/25/21 14:55 STATUS: SOL REQ #: [id number] ROMEL: 03/25/21 11:[address]: Kat Brand DEPT: SURGICAL PATHOLOGY RECD BY: Jaylin Desir ENTERED: 03/26/21 09:50 SP TYPE: BREAST BX OTHR DR: Dr. Clifton Jennings MD Tissues: Left breast, NOS Procedures: Surgery Specimen Level IV HEADER OPERATION: Left breast stereotactic biopsy PRE-OP DIAGNOSIS: Pleomorphic calcifications left breast at 1 o?clock posterior depth TISSUE SUBMITTED: Left breast core tissue ISCHEMIC TIME: 1 minute FIXATION TIME: 32.5 hours MICROSCOPIC DIAGNOSIS Left breast, calcification at 1 o?clock posterior depth, stereotactic core biopsy: Ductal carcinoma in situ with the following characteristics: Architecture Pattern - cribriform Nuclear Grade ? 2/3 Necrosis ? Present, central (expansive comedo necrosis). Calcifications - Present See comment. JESSICA:larry 03/27/2021 COMMENT Immunohistochemistry ([id number]) supports the above diagnosis. ER/NY/Wtw5rdk studies are being performed on sections of tumor and the results from this study will be reported separately ([id number]). This case is discussed with Dr. Brand on 03/28/21. Case has been reviewed in consultation with Dr. Gil who concurs with the above diagnosis. IDC:AM MICROSCOPIC DESCRIPTION Slides are reviewed. GROSS DESCRIPTION Received in fixative is one container labeled with the patient name and designated left breast. The specimen consists of multiple elongated fragments of jaramillo-yellow fibroadipose tissue that in aggregate measure 5 x 3 x 0.3 cm. The entire specimen is submitted in two cassettes. / JESSICA:larry 03/26/21 TC:0 CPT: 77221
--- NOTE | 2021-03-25 11:32 | PCM.OPRPT ---
Report of Operation Date of Procedure: 03/25/21 Pre-Operative Diagnosis: abnormal left breast calcifications on mammograms Post-Operative Diagnosis: same Surgery/Procedure Performed:: left stereotactic breast biopsy Description of Surgical Findings:: abnormal calcifications associated with dense radiographic lesion on left breast mammograms Surgeon: Kat Brand Type of Anesthesia: Local (1% xylocaine) Specimen's removed: left breast tissue Estimated Blood Loss (mL): minimal Description of Procedure: After informed consent was given, the patient was brought into the Breast Biopsy suite. Appropriate time out protocol was followed. The patient was placed in the prone position on the stereotactic biopsy table. The patient?s left breast was then placed in the opening at the head of the biopsy table. A educational/development assistant compression mammogram was then obtained in the lateral view. The suspicious radiological lesion was thus identified. Stereo pictures of the lesion were then taken for XYZ coordinates. The Mammotome biopsy stylus was then positioned where it would be entering into the patient?s breast. The skin at this site was then cleansed with a surgical skin preparation. The skin and subcutaneous tissues at this site were then infiltrated with 1% xylocaine. A small skin incision was made with an 11 blade scalpel. The biopsy stylus was then positioned into the patient?s breast at the proper coordinates of depth. Using the Mammotome vacuum-assist device, several core samples of breast tissue were obtained. A specimen mammogram was the obtained. It revealed that the abnormal calcifications were within the specimen. I reviewed this personally and concluded that the tissue sampling was adequate. A hemostatic marker clip (bowtie) was then placed into the biopsy cavity and a educational/development assistant film revealed that it was properly deployed. The patient was then placed in the supine position and pressure was applied to the breast until no active bleeding was noted. Steristrips were applied to reapproximate the skin. A unilateral mammogram in the CC and MLO view were then taken which revealed that the marker clip was in the same area as the previous suspicious lesion. The patient tolerated the procedure well and was discharged from the Breast Biopsy suite in good condition. Procedure Start Time: 11:09 Procedure Stop Time: 11:26 Complications none noted Admit VTE Documentation VTE Present on Admission: No
--- NOTE | 2021-03-25 11:51 | SUR.OPER ---
pressure held for [address] Brand put steri strips and dressing on breast. no bleeding, area soft. reviewed home going instructions pt voiced understanding.
== END ==
PROVIDERS: PCP Family Medicine; Referring Provider Surgery; Visit Provider Surgery
DX: D05.12 Intraductal carcinoma in situ of left breast (principal); E11.9 Type 2 diabetes mellitus without complications; I10 Essential (primary) hypertension; E78.2 Mixed hyperlipidemia; Z79.84 Long term (current) use of oral hypoglycemic drugs; Z79.899 Other long term (current) drug therapy; Z87.891 Personal history of nicotine dependence
CPT/HCPCS: 19081; 88305; 88341; 88342; J7050; A4648

== ENCOUNTER 2021-04-08 09:33 | Day surgery (SDC) | payer BC, SELFPAY ==
[2017-01-04 15:17] VITALS: BMI 30.1
[2020-12-24 13:18] VITALS: BMI 28.8
--- NOTE | 2021-04-04 14:10 | HP.PCM_ITS ---
History and Physical Date of Admission: 04/08/21 HISTORY AND PHYSICAL ? Luz Marina Avila 1955 ? ? REFERRING PHYSICIAN:? ?Kat Brand MD ? CHIEF COMPLAINT:? ?Established Patient (f/u Stereo)? ? HPI: The patient is a 65 year old female who is s/p left stereotactic breast biopsy done on 11/15/2020. Findings of ductal carcinoma in situ Patient notes no problems from the procedure. ? ? PAST MEDICAL HISTORY DiagnosisDate ?Amaurosis fugax10/29/2017 ?TIA; right visual disturbance 06/2017 ?Arthritis? 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 Gomez ?Garibay's cyst of knee, left03/02/2018 ?Colon [id number] ?Controlled type 2 diabetes mellitus without complication, without long-term current use of insulin ([facility])10/22/2016 ?De Quervain's tenosynovitis, left07/31/2019 ?Diabetic eye exam ([facility])01/16/2016 ?Lat done: 12/03/2017? No retinopathy?? ?Essential hypertension01/16/2016 ?Female pattern hair loss? ?History of colon polyps? ?History of depression? ?when ? ?History of hyperparathyroidism? ?History of transient ischemic attack (TIA)10/29/2017 ?06/29/2017 - R homonomous hemianopia with aphasia for couple hours - negative MRI/A following day ?Meniere disease, right10/29/2017 ?Mixed hyperlipidemia05/31/2009 ?statin intolerance? ?Narcolepsy without cataplexy01/16/2016 ?Especially with long drives.? Has been on provigil for 5-10 yrs? ?Obstructive sleep apnea on CPAP? ?Sibilia ?Psoriasis? ?Rosacea? ?with ocular symptoms ?S/P angioplasty with stent01/09/2017 ?stents to mid and proximal left anterior descending Art, and angio of ostium of #2 diagonal ?Scalp itch? ?Seasonal allergies? ?Dr Pompa ?Vitamin D [id number] ?Well adult exam01/16/2016 ?Last done: 09/08/2018 ?? ? PAST SURGICAL HISTORY ProcedureLateralityDate ?2D ECHO (EXEP) 06/30/2017 ?EF=65%, trivial AK, TI and 1+ PI Unchanged from 04/2017 ?BUNIONECTOMY, [place]-TYPE 2009 ?left great toe ? DELIVERY ONLY ? ?COLONOSCOP W/ OR W/O [facility] 08/09/2018 ?Colonoscopy ?COLONOSCOPY 08/07/15 ?no polyps, recheck 3-5 yrs ?COLONOSCOPY & POLYPECTOMY 10/12, 10/13 ?Dr Avila; hyperplastic polyps ?EGD W/O OR W/BRUSH/WASH 08/09/2018 ?EGD ?HEART CATHETERIZATION 2004 ?heart cath-normal per patient ?HEART CATHETERIZATION 01/04/2017 ?EF=60%, left anterior desending septal perferator 95-99% stenosis and diagonal branch 85% stenosis,? ?HEART CATHETERIZATION 10/2018 ?HEART SURGERY HX 12/2016 ?Cardiac stents x 2 ?LOW BACK DISK SURGERY 2009 ?microdecompression L4 L5 ?PAST SURGICAL HISTORY OF 2004 ?parathyroidectomy x1 ?PAST SURGICAL HISTORY OF ? ?lipoma x2 ?PAST SURGICAL HISTORY OF 10/13 ?left foot surgery (bone cyst in heel, removed) ?PAST SURGICAL HISTORY OF 2014 ?bilateral carpel tunnel ?PAST SURGICAL HISTORY NCRkguw57/2016 ?trigger finger release x2 ?REMOVAL GALLBLADDER 2004 ?Cholecystectomy ?STENT PLACEMENT 01/06/2017 ?stents to mid and proximal left anterior descending Art, and angio of ostium of #2 diagonal ?STRESS TEST 04/20/2017 ?WNL ?TOTAL ABDOM HYSTERECTOMY 1995 ?LEDA for benign fibroid, ovaries intact ? ? Current Outpatient Medications MedicationSig ?metFORMIN (GLUCOPHAGE) 500 mg tabletTake 2 tablets by mouth twice daily with meals. ?hydroCHLOROthiazide (HYDRODIURIL, ESIDRIX) 25 mg tabletTake 1 tablet by mouth once daily. ?nitroglycerin sublingual (NITROQUICK) 0.4 mg SL tabletDissolve 1 tablet under the tongue every 5 minutes as needed for Chest Pain. ?dulaglutide (TRULICITY) 3 mg/0.5 mL pen injectorInject 3 mg subcutaneously one time a week. ?ketoconazole (NIZORAL) 2 % shampooApply 1 application to affected area once daily as needed. ?vitamin B complex (B COMPLEX ORAL)Take 1 tablet by mouth once daily. ?ezetimibe (ZETIA) 10 mg tabletTake 1 tablet by mouth once daily. ?MAGNESIUM SULFATE ORALTake 500 mg by mouth once daily.? ? ?montelukast (SINGULAIR) 10 mg tabletTake 10 mg by mouth daily at bedtime. ?metoprolol succinate ER (TOPROL XL) 25 mg 24 hr tabletTake 1 tablet by mouth twice daily. Per Dr. Gomez ?aspirin 81 mg chewable tabletTake 1 tablet by mouth once daily. ?lisinopril (ZESTRIL, PRINIVIL) 5 mg tabletTake 1 tablet by mouth once daily. ?cholecalciferol, vitamin D3, (VITAMIN D3) 4,000 unit capTake 1 capsule by mouth once daily. ?MULTIVITAMIN ORALTake? by mouth. ?[place]-3 Fatty Acids-Vitamin E (FISH OIL) 1,000 mg capTake 1 capsule by mouth once daily. ?LACTOBACILLUS ACIDOPHILUS (PROBIOTIC ORAL)Take 1 tablet by mouth once daily. ?CPAP? ? ? ALLERGIES: Brilinta [Ticagrelor], Crestor [Rosuvastatin], Keflex [Cephalexin], Lipitor [Atorvastatin], Lovastatin, and [place] [Hydrocodone-Acetaminophen] ? PERSONAL HISTORY:? Social History ? Tobacco Use ?Smoking status:Former Smoker ? Packs/day:1.50 ? Years:3.00 ? Pack years:4.50 ? Types:Cigarettes ? Quit date:11/08/1994 ? Years since quittin.4 ?Smokeless tobacco:Never Used ?Tobacco comment: smoked 3 years in mid 90s Vaping Use ?Vaping Use:Never used Substance Use Topics ?Alcohol use:No ?Drug use:No ?? ? FAMILY HISTORY? ProblemRelationAge of Onset ?other (Pancreatic cancer)Mother? ?Coronary Artery [id number] ?? ? [place] @ 25. CABG ?DiabetesFather? ?DiabetesPaternal Grandmother? ?DiabetesMaternal Grandfather? ?other (Lung cancer)Brother? ?other (suicide)Son? may of been depression ? ? REVIEW OF SYSTEMS: ? ? ?General:? ?The patient denies fatigue, denies weight loss, denies weight gain, denies feeling hot, and denies feelings of cold. ? ? ?Eyes:? The patient denies glaucoma, denies eye injury/surgery, wears glasses or contacts. ? ? ?Ear/Nose/Throat:? The patient NOTES allergies, denies hayfever, denies ear infections, and denies bloody noses. ? ? ?Cardiovascular:? The patient denies chest pain, denies heart disease, denies high blood pressure,NOTES cardiac stent, denies prior heart attack, denies irregular heart beat, denies high cholesterol,? denies poor circulation, denies heart failure, other cardiac issues, denies claudication, denies cold feet, denies peripheral arterial stent. ? ? ?Respiratory:? The patient denies tuberculosis, denies pneumonia, denies frequent cough, denies pulmonary embolism, denies shortness of breath, and denies coughing up blood. ? ? ?Gastrointestinal: has occasional indigestion, has occasional constipat ion/diarrhea, denies difficulty swallowing, denies acid reflux, denies ulcers, denies vomiting, denies jaundice/hepatitis, denies gallbladder problems, denies black or tarry stools, NOTES hemorrhoids, denies bleeding from rectum, denies diverticulitis, denies diarrhea, denies loss of stool control, and denies hernias. ? ? ?Kidney/Bladder:? The patient denies kidney stones, denies urine infections, and denies bloody urine. ? ? ?Skin:? The patient denies a history of skin cancer, denies bleeding/changing moles, and NOTES a history of skin rash. ? ? ?Neurologic: has occasional headaches, had TIA, denies a history of epilepsy/convulsions, denies headaches, denies head/spinal injuries ? ? ?Psychiatric:? The patient denies psychiatric medications, denies depression, and denies voices, denies substance abuse. ? ? ?Endocrine:? The patient denies thyroid disorders, NOTES diabetes, and denies hormonal problems. ? ? ?Hematologic:? The patient denies a history of bruising, denies bleeding, and denies anemia, denies blood clots. ? ? ?Infections:? The patient NOTES a history of measles and mumps, denies rheumatic fever, and denies sexually transmitted diseases. ? ? ?Musculoskeletal:? The patient denies back pain/injury, denies back problems, NOTES sciatica, NOTES knee/foot trouble, NOTES arthritis, or denies gout. ? ? ?Obstetrical: menarche 13, , first 19, breast feeding 3 years, BCP denies, surgical menopause 41 still has both ovaries When was patient's last Mammogram screening? 03/11/2021 ?Last Colonoscopy:? 08/2018? Maddie Alvarez LPN ? ? PHYSICAL EXAMINATION: General:? The patient is 65 year old female, well nourished, well hydrated in no acute distress.? The patient is oriented to time, place, and person. VITALS: Blood pressure 138/82, pulse 78, temperature 98.4 ?F, height 5' 3, weight 163 lb, SpO2 100 %. Body mass index is 28.87 kg/m?.? ? Head ? Normocephalic. EOM intact with sclera clear and no icterus noted. Wearing glasses Neck - supple with no jugular venous distention noted. Trachea is midline.? No thyroid enlargement or thyroid nodules detected. No masses noted. Chest/breast ? no asymmetry of breasts noted, no suspicious skin lesions noted - healed biopsy site, no nipple discharge and both nipples everted, no breast masses noted Lungs ? clear to auscultation. Normal breath sounds. No rales/rhonchi/wheezing noted. No labored breathing noted, such as retractions. No cough heard. Heart ? normal S1 and S2 auscultated. No rubs/clicks/murmurs noted. Regular rate. Abdomen ? soft and benign. Normal bowel sounds No abdominal bruits noted.? Extremities ? no calf tenderness noted. No pitting edema noted.? Skin ? normal skin integrity. Lymph ? no cervical adenopathy detected, no supraclavicular adenopathy detected, no axillary adenopathy detected Neurological ? gait normal, no focal deficits noted Psych ? calm and appropriate ? ? IMPRESSION: left breast DCIS ? PLAN:? ?I have discussed the above with the patient. I have explained DCIS and its treatment. I have offered options of left breast lumpectomy/XRT versus mastectomy I have explained the procedures to the patient. I have counseled the patient as to the risks of the procedure, including but not limited to: infection, bleeding, injury to any blood vessels/nerves, scar tissue, cosmetic deformity, need for further surgery to ensure clear margins, seromas, wound infections, complications of anesthesia, etc. ? the patient understands.? She chooses lumpectomy/XRT. ? The patient was offered a surgery/procedure at a [facility]. The provider and patient have discussed in detail the risk of exposure to and/or potential harm posed by the COVID-19 virus with having a surgery/procedure at this time versus the risk of? delaying the surgery/procedure. It is not possible to know either the risk of delaying the surgery or procedure or chance of getting an infection with perfect accuracy, but a joint decision was made between the patient and the provider? to proceed at this time with the scheduled surgery/procedure. ?Will schedule at [facility] as per patient's wishes.?? ? I have answered all questions to the patient?s satisfaction and the patient has no further questions. ? Diagnoses: (D05.12) Breast neoplasm, Tis (DCIS), left? (primary encounter diagnosis) ? ? ? Return to Clinic: The patient is instructed to follow-up with me after the procedure. ? Kat Brand MD v
[2021-04-08] VITALS (8 sets, daily range): BP systolic 127–147; BP diastolic 72–81; PULSE 58–86; RESP 16–18; TEMP 36.2–36.5; O2SAT 16–100; BMI 28.3
--- NOTE | 2021-04-08 | BRBX_PTH ---
PATIENT: DOM BARBA LOC: [facility] [place] U#:[id number] AGE/SX: 65/F ROOM: RE04/08/[address]: Dr. Kat Brand MD : 1955 BED: DIS: 04/08/2021 SPEC #: [id number] RECD: 04/08/21 12:47 STATUS: SOL REAbhay #: [id number] ROMEL: 04/08/21 00:[address]: Kat Brand DEPT: SURGICAL PATHOLOGY RECD BY: Daysi Quintanilla ENTERED: 04/08/21 13:06 SP TYPE: BREAST BX OTHR DR: Dr. Clifton Jennings MD Tissues: Left breast, NOS Procedures: Surgery Specimen Level IV HEADER OPERATION: Left breast lumpectomy PRE-OP DIAGNOSIS: Left breast DCIS TISSUE SUBMITTED: Left breast lumpectomy, short suture - superior, 1 long suture - lateral, two short sutures - posterior MICROSCOPIC DIAGNOSIS Left breast lumpectomy with needle localization: Ductal carcinoma in situ. See cancer summary in the comment section. SJ:rg 04/11/2021 COMMENT DUCTAL CARCINOMA IN SITU SUMMARY Procedure ? lumpectomy with needle localization Specimen laterality ? left Tumor site ? 1 o?clock posterior depth, as per clinical information. Size (extent of DCIS): Estimated size of DCIS ? 1 x 0.4 cm (also includes the biopsy cavity) Number of blocks with DCIS ? 1 Number of blocks examined - 12 Histologic type ? ductal carcinoma in situ Architectural pattern ? cribriform Nuclear grade ? 1-2 Necrosis ? present, central (expansive ?comedo? necrosis) Margins ? uninvolved by ductal carcinoma in situ. The biopsy cavity is 0.5 cm away from closest anterior margin. Regional lymph nodes ? no lymph nodes submitted or found. Distant metastasis ? not applicable Additional Pathologic Findings ? focal intraductal hyperplasia with atypia. - Skin, dermal fibrosis with chronic inflammation, consistent with scar. - Changes consistent with biopsy site. Microcalcifications - present in DCIS Clinical history - Please make reference to previous specimen ([id number]) left breast, calcification at 1 o?clock posterior depth, stereotactic core biopsy with diagnosis of ductal carcinoma in situ. Radiologic findings ? pleomorphic calcifications. Ancillary Studies previously performed ([id number] / [id number]): ER ? positive (>95%, strong) SC - positive (>95%, strong) Her2 brandin ([facility]) ? negative (0) Pathologic Staging: pTis(DCIS) pNx Mx The above summary is in compliance with [employer] [place] Pathology (CAP) Cancer Protocols Checklist and [place] Joint Committee on Cancer (AJCC), Staging Manual, 8th Ed. Skeletal muscle tissue is also noted in the specimen and uninvolved by tumor. Case has been reviewed in consultation with Dr. Gil who concurs with the above diagnosis. IDC:AM MICROSCOPIC DESCRIPTION Slides are reviewed. GROSS DESCRIPTION Received fresh for intraoperative consultation labeled with the patient's name is a specimen designated left breast lumpectomy. The specimen consists of a piece of fibroadipose tissue with needle localization measuring 5 x 5 x 3.5 cm. A piece of skin is noted anteriorly measuring 2 x 0.3 cm. The specimen is oriented by sutures as follows: short suture - superior, long suture - lateral, two short sutures - posterior. The specimen is inked as follows: anterior - yellow, posterior - black, superior - blue, inferior - green, medial - red and lateral - orange. A piece of skin appears to be sectioned in the center. Serial sections reveal a biopsy cavity adjacent indurated area measuring 3 x 1 x 0.5 cm. This cavity is 0.5 cm away from the closest anterior margin. This information is conveyed to the surgeon intraoperatively. Sections of the rest of the specimen reveal jaramillo-yellow adipose cut surfaces mixed with jaramillo-white fibrous areas. Acute Care Certified Nursing Assistant sections are submitted in 12 cassettes as follows: 1 - skin, entirely submitted and perpendicular superior and inferior margin, 2 - perpendicular medial, lateral and posterior margin, 3-5 - biopsy cavity with closest anterior margin and surrounding indurated area, 6 & 7 - more sections of biopsy cavity, 8 - financial sales representative section adjacent to the biopsy cavity. Biopsy cavity is almost entirely submitted, 9-12 - financial sales representative sections from the other area. Sections will be submitted after additional fixation. / SJ:larry TC:0 CPT: 83499, 17404
--- NOTE | 2021-04-08 09:31 | BI_ITS ---
SURGICAL BREAST SPECIMEN RADIOGRAPH CLINICAL: Document presence of tissue clip marker in biopsy specimen. FINDINGS: Specimen shows presence of tissue clip marker. Electronically Signed: Reji Bella MD at 13:04 EDT , Service support , BI/Breast Biopsy Specimen
[2021-04-08] MEDS: Lactated Ringers 1,000 ML 125 ML IV ×2 (10:30→13:00)
[2021-04-08 11:39] LABS: Bedside Glucose 116 mg/dL (70-110)
[2021-04-08] MEDS: Bupivacaine 0.25%-Epi/Pf 1:200,000 OPERA.SITE (12:30)
--- NOTE | 2021-04-08 13:02 | PCM.OPRPT ---
Report of Operation Date of Procedure: 04/08/21 Pre-Operative Diagnosis: DCIS of left breast Post-Operative Diagnosis: same Surgery/Procedure Performed:: left breast lumpectomy via wire localization Description of Surgical Findings:: DCIS of upper outer left breast area Surgeon: Kat Brand Assistant: Gay Rosen Type of Anesthesia: General Anesthesiologist: Pee Lomeli Specimen's removed: left breast tissue Drains: none Estimated Blood Loss (mL): < 10 ml Fluids Replaced: 1100 ml RL Description of Procedure: After informed consent was given, the patient was brought into the Breast Stereotactic Radiology suite. Appropriate time out protocol was followed. The patient was then placed in the prone position on the [place] stereotactic table. The patient?s left breast was placed in the opening at the head of the table. A sales promotion officer compression mammogram was then obtained in the lateral view. The marker clip that was previously placed was identified. Stereo pictures of the lesion were then taken for XYZ coordinates. The Kopans needle was then positioned where it would be entering into the patient?s breast. The skin at this site was then cleansed with a surgical skin preparation. The skin and subcutaneous tissues at this site were then infiltrated with 1% xylocaine. The Kopans needle was then positioned into the patient?s breast at the proper coordinates of depth. A sales promotion officer film was obtained which revealed the wire in proper position. The patient was then placed in the supine position and the wire was taped into place. A unilateral mammogram in the CC and MLO view were then taken for use in the OR. The patient tolerated this portion of the procedure well and was brought to the AC awaiting surgery in the OR. The patient was then brought to the Operating Room. Appropriate time out protocol was followed. The patient was then placed on the operating table in the supine position. A wire had already been placed in the stereotactic biopsy room in the radiology department as described above. The left breast with the wire in placed was then prepped with a sterile surgical skin preparation and sterile surgical drapes were placed. The skin and subcutaneous tissues at the site of the breast lesion was then infiltrated with 0.25% marcaine with epinephrine. A transverse curvilinear skin incision was then made at the wire entrance site with a 15 blade scalpel in the upper outer quadrant of the left breast. It was carried down through to the subcutaneous tissues. Hemostasis was controlled with electrocautery. The wire was then palpated out within the breast tissue. The breast tissue surrounding the wire was then carefully palpated out and from the surrounding tissues using electrocautery. The breast tissue, once from the breast, was then forwarded to the radiology department, where a specimen mammogram revealed that the marker clip was within the specimen. I personally reviewed the specimen mammogram and noted the marker clip to be within the specimen and thus could proceed with the surgery as the tissue was appropriately obtained. The breast tissue was then forwarded to pathology for analysis. Pathology review revealed that the closest margin was anterior with a measurement of 5mm. Thus, tissue was adequate. The wound cavity was carefully examined. No further suspicious tissue was palpated or visualized. Hemostasis was carefully controlled with electrocautery. The subdermal tissues were then approximated with vicryl suture. The incision was then reapproximated close using running monocryl suture. Cavilon and steristrips were then placed to reinforce the skin closure. Sponge, needle, and instrument count were verified and correct at the time of skin closure. A sterile dressing was then applied. The patient was then brought to the Recovery Room in stable condition. Complications none noted Admit VTE Documentation VTE Present on Admission: Yes VTE Mechan Device Prophylaxis: SCD's
--- NOTE | 2021-04-08 13:13 | DCINST_ITS ---
Discharge Instructions Follow Up Care Test Results: Test results from this visit will be discussed in further detail at your follow-up appointment, if applicable. Discharge Plan Admission Attending Provider: Kat Brand Primary Care Provider: Clifton Jennings Instructions Patient Instructions: ED Chest Pain, Noncardiac Additional Instructions / Restrictions: Recommended pain control regimen - May take 600 mg ibuprofen (Motrin) and then in 3-4 hours, may take 650 mg acetaminophen (Tylenol), then in 3-4 hours may take 600 mg ibuprofen, then in 3- 4 hours may take 650 mg acetaminophen and so on for 2-3 days May take narcotic pain medication for pain that is not controlled by above and at night for comfort through the night Leave dressings in place May get dressings wet in shower - do not scrub in the area and pat dry Do not soak - no tub baths/swimming Ice applied to areas of discomfort may help For breast surgery - wear supportive bra during the day, this will prevent the weight of your breast from pulling at the incision site and causing discomfort, ice packs to the area to tuck in your bra may help also Please call for a follow up appointment for April 21, call for a time, thank you, I will contact you with pathology results, later this week or early next week, thank you Discharge Orders/Prescriptions Prescriptions: New hydrocodone-acetaminophen 5-325 mg tablet 1 tab PO Q8H 5 Days Qty: 15 RF: 0 No Action nitroglycerin 0.4 mg tablet, sublingual 0.4 mg SUBLINGUAL Q5M PRN (Reason: Chest Pain) Qty: 25 RF: 3 montelukast 10 mg tablet 10 mg PO QPM RF: 0 ketoconazole 2 % shampoo 1 applic TOPICAL DAILY RF: 0 hydrochlorothiazide 25 mg tablet 25 mg PO DAILY RF: 0 (DME) Handicap Placard Qty: 1 RF: 0 coenzyme Q10 100 mg capsule 100 mg PO DAILY RF: 0 ezetimibe [Zetia] 10 mg tablet 10 mg PO DAILY RF: 0 magnesium sulfate 100 mg capsule 500 mg PO DAILY RF: 0 L.acidoph, paracasei,B. lactis 1 EACH capsule 1 ea PO QHS RF: 0 metformin 500 mg tablet,ER erlin.retention 24 hr 1,000 mg PO DAILY RF: 0 omega-3 fatty acids 500 MG capsule 500 mg PO QHS RF: 0 aspirin 81 MG tablet 81 mg PO DAILY@0800 Qty: 30 RF: 11 cholecalciferol (vitamin D3) 2,000 unit capsule 4,000 unit PO DAILY RF: 0 Trulicity 3 mg/0.5 mL Pen Injector 3 mg SUBCUT .QFRI RF: 0 lisinopril 5 mg tablet 5 mg PO DAILY Qty: 90 RF: 3 metoprolol tartrate 25 mg tablet 25 mg PO BID Qty: 180 RF: 3 Referrals / Follow Up: Clifton Jennings MD [Primary Care Provider] - Disposition Discharge Orders: Discharge Patient (Routine); Ordered 04/08/21 Ordered By: Dr. Kat Brand
[2021-04-08 13:40] LABS: Bedside Glucose 111 mg/dL (70-110)
== END 2021-04-08 15:11 ==
LOC: SDC 09:34 → AC 09:35
PROVIDERS: PCP Family Medicine; Referring Provider Surgery; Visit Provider Surgery
PROC: (CPT 19301; principal; 2021-04-08 11:30)
DX: C50.412 Malignant neoplasm of upper-outer quadrant of left female breast (principal); E11.9 Type 2 diabetes mellitus without complications; I25.10 Atherosclerotic heart disease of native coronary artery without angina pectoris; E78.2 Mixed hyperlipidemia; I10 Essential (primary) hypertension; G47.33 Obstructive sleep apnea (adult) (pediatric); E55.9 Vitamin D deficiency, unspecified; Z79.899 Other long term (current) drug therapy; Z79.84 Long term (current) use of oral hypoglycemic drugs; Z79.82 Long term (current) use of aspirin; Z95.5 Presence of coronary angioplasty implant and graft; Z87.891 Personal history of nicotine dependence; Z86.73 Personal history of transient ischemic attack (TIA), and cerebral infarction without residual deficits
CPT/HCPCS: 19301; 19281; 76098; 82962; 88305; J7120; J2405

== ENCOUNTER 2021-05-05 09:18 | Emergency (ER) | payer BC, SELFPAY ==
[2017-01-04 15:17] VITALS: BMI 30.1
[2021-04-08 10:06] VITALS: BMI 28.3
[2021-05-05 09:18] VITALS: BP 146/77; PULSE 83; RESP 16; TEMP 36.3; O2SAT 99; BMI 28.1
--- NOTE | 2021-05-05 09:32 | EDS_ITS ---
HPI History of Present Illness Chief Complaint: Dizziness Informant: patient Narrative Narrative: 65-year-old female presents to the emergency department with chief complaint of vertigo. Patient states that she has a history of M?ni?re's involving the right ear. She states she has not had an episode for several years. She reports that she got up at 1 point during the night went to sit up and noticed that she was dizzy. She laid back down was able to fall back asleep. When she got up this morning dizziness was worse than she has been vomiting. She notes a sensation of the room spinning. She denies any speech face arm or leg symptoms. She denies any headache or recent URI symptoms. [facility] Medical History Arthritis Atherosclerotic heart disease of [place] coronary artery without angina pectoris Cardiology follow-up encounter (~12/24/20) CPAP (continuous positive airway pressure) dependence Diabetes DM2 (diabetes mellitus, type 2) Easy bruising Essential hypertension Excessive bleeding Former smoker History of edema History of IBS Hx of cardiovascular stress test (~09/13/18) Hx of echocardiogram (~06/30/17) Hx of gastritis Hypertension Injury of head and neck Menieres disease Mixed hyperlipidemia Presence of stent in coronary artery (~01/05/17) Sleep apnea TIA (transient ischemic attack) Wears glasses Home Medications Lenkaacidoph, yulissa,B. lactis 1 ea PO QHS 09/23/16 [History Last Taken 06/28/17] omega-3 fatty acids 500 mg PO QHS 01/01/17 [History Last Taken 03/27/21] aspirin 81 mg PO DAILY@0800 #30 tab 01/05/17 [Rx Last Taken 03/27/21] cholecalciferol (vitamin D3) 50 mcg (2,000 unit) capsule 4,000 unit PO DAILY cap 08/22/18 [History Last Taken Unknown] montelukast 10 mg tablet 10 mg PO QPM 08/22/18 [History Last Taken Unknown] nitroglycerin 0.4 mg sublingual tablet 0.4 mg SUBLINGUAL Q5M PRN #25 tab 08/22/18 [Rx Last Taken Unknown] Handicap Placard #1 ea 10/06/18 [Rx Last Taken Unknown] hydrochlorothiazide 25 mg tablet 25 mg PO DAILY 10/06/18 [History Last Taken Unknown] ketoconazole 2 % shampoo 1 applic TOPICAL DAILY ml 02/20/19 [History Last Taken Unknown] coenzyme Q10 100 mg capsule 100 mg PO DAILY 08/23/19 [History Last Taken Unknown] metformin 500 mg 24 hr tablet,extended release 1,000 mg PO DAILY tab 08/23/19 [History Last Taken Unknown] lisinopril 5 mg tablet 5 mg PO DAILY #90 tab 12/18/20 [Rx Last Taken 04/08/21] metoprolol tartrate 25 mg tablet 25 mg PO BID #180 tab 12/18/20 [Rx Last Taken 04/08/21] ezetimibe 10 mg tablet 10 mg PO DAILY 12/24/20 [History Last Taken Unknown] magnesium sulfate 100 mg capsule 500 mg PO DAILY cap 12/24/20 [History Last Taken Unknown] dulaglutide [Trulicity] 3 mg SUBCUT .QFRI 03/31/21 [History Last Taken Unknown] hydrocodone-acetaminophen 1 tab PO Q8H 5 Days #15 tab 04/08/21 [Rx Last Taken Unknown] diazepam 5 mg PO Q8 PRN #15 tab 05/05/21 [Rx Last Taken Unknown] ondansetron 4 mg PO Q6H PRN PRN #15 tab 05/05/21 [Rx Last Taken Unknown] Allergy/AdvReac Type Severity Reaction Status Date / Time hydrocodone Allergy Hives Verified 05/05/21 09:20 cephalexin monohydrate AdvReac Other Verified 04/08/21 10:05 [From Keflex] pravastatin AdvReac myalgias Verified 04/08/21 10:05 Family History Mother Cancer pancreatic cancer Father , [place] age 20's (premature CAD), 3 vessel CABG, hyperlipidemia, CHf Myocardial infarction CAD (coronary artery disease) Brother Cancer lung cancer Surgical History Ductal carcinoma in situ (DCIS) of left breast History of cardiac catheterization (~10/12/18) History of carpal tunnel release of both wrists History of section History of cholecystectomy History of coronary artery stent placement (~12/30/16) History of hysterectomy History of lumpectomy of left breast History of parathyroidectomy Hx of foot surgery Status post excision of lipoma (~11/2018) Status post lumbar spine operative procedure for decompression of spinal cord Status post trigger finger release Social History Smoking Status: Former smoker quit date: 11/08/87 pack-years: 6 how long ago did patient quit smokin second hand exposure: Yes alcohol intake: never substance use type: does not use caffeine: Yes Type: coffee Number of servings: 2 what type of physical activity do you participate in: none seatbelt use: always do you feel safe at home: Yes ROS ROS ED Constitutional Constitutional ED: Denies chills or weight loss Eyes Eyes: Denies change in vision or diplopia ENT ENT ED: Denies ear pain, rhinorrhea or sore throat Cardiovascular Cardiovascular: Denies chest pain, orthopnea, palpitations or racing heartbeat Respiratory/Chest Respiratory/Chest: Denies cough, dyspnea or orthopnea Gastrointestinal Gastrointestinal: Denies abdominal pain, diarrhea, nausea or vomiting Genitourinary Genitourinary ED: Denies dysuria, hematuria or urinary frequency Musculoskeletal Musculoskeletal: Denies arthralgias or myalgias Integumentary Denies abscess or rash Neurologic Neurologic: Reports other Details: Vertigo ; Denies headache(s) or weakness Psychiatric Psychiatric: Denies anxiety, depression, suicidal ideation or suicidal thoughts Endocrine Endocrinology: Denies polydipsia, polyphagia or polyuria Allergic/Immunologic Allergic/Immunologic ED: Denies mouth swelling, tongue swelling or urticaria EXAM Physical Exam Const Vital Signs: 05/05/21 09:18 05/05/21 10:00 Temperature 97.4 F L Temperature Source Temporal Pulse Rate 83 Respiratory Rate 16 Respiratory Effort Normal Labored Respiratory Pattern Normal Blood Pressure 146/77 H Blood Pressure Mean 100 Pulse Ox 99 Oxygen Delivery Method Room Air Positive well nourished and well developed General Appearance ED: well developed HEENT Reports normocephalic, head/scalp atraumatic and moist mucous membranes HEENT Narrative: No nystagmus Eyes PERRL and EOMs intact bilaterally Neck no lymphadenopathy, supple and no JVD Resp normal respiratory effort and clear to auscultation bilaterally Cardio regular rate, regular rhythm and no murmurs GI normal to inspection, nondistended, normoactive bowel sounds and non-tender Palpation: soft Back/Spine no CVA tenderness and normal ROM Extremity normal to inspection General Extremety ED: Negative for edema General Extremity: Negative for edema Neuro oriented x3, CN's II-XII intact bilaterally and no sensory deficits noted Neuro Narrative: Positive [place] Sensorium / Orientation: alert Motor Exam: strength 5/5 throughout Psych mental status grossly normal Mood & Affect: Negative for depressed or tearful Skin no rashes or lesions noted and no wounds MDM MDM MDM Narrative Medical decision making narrative: Patient received IV fluids, Zofran, and Valium. Repeat examination finds the patient significantly improved. No further vomiting. All right for the patient have Zofran and Valium at home. Return if worsening or concerns Discharge Plan Triage Chief Complaint: Dizziness ED Provider: Eliezer Butler Dx/Rx/DC Orders Clinical Impression: Vertigo Instructions: ED BPV Vertigo Prescriptions: New ondansetron [ondansetron] 4 MG tablet 4 mg PO Q6H PRN PRN (Reason: Nausea) Qty: 15 RF: 0 diazepam [diazepam] 5 MG tablet 5 mg PO Q8 PRN (Reason: Muscle Spasm) Qty: 15 RF: 0 No Action nitroglycerin 0.4 mg tablet, sublingual 0.4 mg SUBLINGUAL Q5M PRN (Reason: Chest Pain) Qty: 25 RF: 3 montelukast 10 mg tablet 10 mg PO QPM RF: 0 ketoconazole 2 % shampoo 1 applic TOPICAL DAILY RF: 0 hydrochlorothiazide 25 mg tablet 25 mg PO DAILY RF: 0 (DME) Handicap Placard Qty: 1 RF: 0 coenzyme Q10 100 mg capsule 100 mg PO DAILY RF: 0 ezetimibe [Zetia] 10 mg tablet 10 mg PO DAILY RF: 0 magnesium sulfate 100 mg capsule 500 mg PO DAILY RF: 0 L.acidoph, paracasei,B. lactis 1 EACH capsule 1 ea PO QHS RF: 0 metformin 500 mg tablet,ER erlin.retention 24 hr 1,000 mg PO DAILY RF: 0 omega-3 fatty acids 500 MG capsule 500 mg PO QHS RF: 0 aspirin 81 MG tablet 81 mg PO DAILY@0800 Qty: 30 RF: 11 cholecalciferol (vitamin D3) 2,000 unit capsule 4,000 unit PO DAILY RF: 0 Trulicity 3 mg/0.5 mL Pen Injector 3 mg SUBCUT .QFRI RF: 0 hydrocodone-acetaminophen 5-325 mg tablet 1 tab PO Q8H 5 Days Qty: 15 RF: 0 lisinopril 5 mg tablet 5 mg PO DAILY Qty: 90 RF: 3 metoprolol tartrate 25 mg tablet 25 mg PO BID Qty: 180 RF: 3 Primary Care Provider: Clifton Jennings Referrals: Clifton Jennings MD [Primary Care Provider] - As Needed Disposition Disposition: Home, Self Care
[2021-05-05] MEDS: Ondansetron 4 MG/2 ML Vial IV (09:48)
[2021-05-05] MEDS: 0.9% Normal Saline 1,000 ML 1000 ML IV (09:48)
[2021-05-05] MEDS: diazePAM 5 MG Tablet PO (09:48)
[2021-05-05 11:47] VITALS: BP 127/74; PULSE 80; RESP 17; O2SAT 97
== END 2021-05-05 11:48 | disposition home or self-care (01) ==
PROVIDERS: Emergency Provider Emergency Medicine; PCP Family Medicine
DX: R42 Dizziness and giddiness (principal); I25.10 Atherosclerotic heart disease of native coronary artery without angina pectoris; Z87.891 Personal history of nicotine dependence; Z87.19 Personal history of other diseases of the digestive system
CPT/HCPCS: 96374; 99285; J7030; A4216; J2405

== ENCOUNTER → 2021-05-14 10:52 | Outpatient (CLI) | payer BC, SELFPAY ==
[2017-01-04 15:17] VITALS: BMI 30.1
[2021-05-05 09:18] VITALS: BMI 28.1
--- NOTE | 2021-05-14 10:57 | ECHOCSONC_ITS ---
Reason For Study: CARCINOMA OF LFT BREAST Procedure This was a 2D Doppler, Color Flow transthoracic echocardiogram. Myocardial strain analysis was performed in this exam to aid in the assessment of cardiac function. The study was technically difficult. Contrast injection was performed. Exam performed in department. Left Ventricle Normal LV size. Left ventricular systolic function is normal. The estimated ejection fraction is 60 %. The global longitudinal strain = -16% (borderline). No evidence for diastolic dysfunction. No regional wall motion abnormalities noted. Right Ventricle Normal RV size. Normal systolic function. Atria Normal left atrium. Normal right atrium. No doppler evidence for ASD. Mitral Valve Normal mitral valve. There is no mitral annular calcification. Trivial mitral valve insufficiency. Tricuspid Valve Normal tricuspid valve. Mild tricuspid valve insufficiency. Right ventricular systolic pressure estimated to be 25 mmHg. Aortic Valve Trisinus/trileaflet aortic valve. Moderate focal aortic valve calcification. Trivial aortic valve insufficiency. Pulmonic Valve Normal pulmonic valve. Trivial pulmonic valve insufficiency. Great Vessels Normal sized aortic root. Pericardium/Pleural No pericardial effusion. Medication 22 gauge I.V. with prn adaptor inserted into right arm. Diluted definity 3ml given slow IV push to enhance endocardial definition. MMode/2D Measurements & Calculations LVIDd: 4.3 cm IVSd: 0.87 cm Ao root diam: 3.2 cm LVIDs: 3.0 cm LVPWd: 0.94 cm RVDd: 2.6 cm FS: 30.0 % LAV(MOD-bp): 22.9 ml LVAd ap4: 21.8 cm2 LVAd ap2: 22.6 cm2 LAV(MOD-bp) Indexed: 13.3 ml/m2 LVLd ap4: 6.5 cm LVLd ap2: 6.8 cm LAV(MOD-sp2): 24.5 ml EDV(MOD-sp4): 61.0 ml EDV(MOD-sp2): 62.2 ml LAV(MOD-sp4): 21.5 ml EDV(sp4-el): 62.3 ml EDV(sp2-el): 63.6 ml LVAs ap4: 12.9 cm2 LVAs ap2: 12.4 cm2 LVLs ap4: 5.2 cm LVLs ap2: 5.0 cm ESV(MOD-sp4): 28.9 ml ESV(MOD-sp2): 25.6 ml ESV(sp4-el): 27.1 ml ESV(sp2-el): 25.9 ml EF(MOD-sp4): 52.6 % EF(MOD-sp2): 58.9 % EF(sp4-el): 56.6 % SV(MOD-sp4): 32.1 ml SV(MOD-sp2): 36.7 ml SV(sp4-el): 35.2 ml LA A4 area: 11.0 cm2 LA dimension(2D): 3.2 cm RA A4 area: 10.6 cm2 Time Measurements MV dec time: 0.28 sec Doppler Measurements & Calculations MV E max miguel: 38.9 cm/sec Lat Peak E' Miguel: 5.9 cm/sec Med Peak E' Miguel: 7.0 cm/sec MV A max miguel: 47.1 cm/sec E/E' lat: 6.6 E/E' med: 5.5 MV E/A: 0.83 Ao V2 max: 85.2 cm/sec LV V1 max: 78.3 cm/sec PA V2 max: 69.2 cm/sec Ao max P.9 mmHg LV V1 max P.5 mmHg TR max miguel: 235.8 cm/sec TR max P.2 mmHg ECHO/ONC Echo Complete W/ Contrast Interpretation Summary The study was technically difficult. Contrast injection was performed. Left ventricular systolic function is normal. The estimated ejection fraction is 60 %. The global longitudinal strain = -16% (borderline). Trivial mitral valve insufficiency. Mild tricuspid valve insufficiency. Moderate focal aortic valve calcification. Trivial aortic valve insufficiency. Trivial pulmonic valve insufficiency. Right ventricular systolic pressure estimated to be 25 mmHg. No evidence for diastolic dysfunction. Ordering Physician: Ron Gomez Referring Physician: FRIDA HUNG/ DR GOMEZ Performed By: Melissa Woods, RDCS, RVT
== END ==
PROVIDERS: PCP Family Medicine; Referring Provider Internal Medicine Cardiovascular Disease; Visit Provider Internal Medicine Cardiovascular Disease
DX: D05.12 Intraductal carcinoma in situ of left breast (principal)
CPT/HCPCS: 93306; 93356; Q9957; A4216; C8929; J3490

== ENCOUNTER → 2021-09-16 08:38 | Outpatient (CLI) | payer BC, SELFPAY ==
[2017-01-04 15:17] VITALS: BMI 30.1
--- NOTE | 2021-09-16 08:41 | ECHOCS_ITS ---
Reason For Study: S/P Radiation Procedure This was a 2D Doppler, Color Flow transthoracic echocardiogram. The study was technically difficult. Contrast injection was performed. Exam performed in department. Left Ventricle Normal LV size. Left ventricular systolic function is normal. The estimated ejection fraction is 60 %. Diastolic function is indeterminate. No regional wall motion abnormalities noted. Right Ventricle Normal RV size. Normal systolic function. Atria Normal left atrium. Normal right atrium. No doppler evidence for ASD. Mitral Valve There is no mitral annular calcification. Normal mitral valve. Trivial mitral valve insufficiency. Tricuspid Valve Normal tricuspid valve. Trivial tricuspid valve insufficiency. Unable to estimate RV systolic pressure/pulmonary artery pressure due to technically difficult study. Aortic Valve Trisinus/trileaflet aortic valve. Mild focal aortic valve calcification. Pulmonic Valve The pulmonic valve is not well visualized. Trivial pulmonic valve insufficiency. Great Vessels The aortic root is not well visualized. Medication 22 gauge I.V. with prn adaptor inserted into right arm. Diluted definity 2ml given slow IV push to enhance endocardial definition. MMode/2D Measurements & Calculations LVIDd: 4.6 cm IVSd: 1.2 cm LA dimension: 2.9 cm LVIDs: 2.5 cm LVPWd: 1.1 cm FS: 44.7 % LAV(MOD-bp): 26.4 ml LA A4 area: 10.9 cm2 RA A4 area: 10.8 cm2 LAV(MOD-bp) Indexed: 15.4 ml/m2 LAV(MOD-sp2): 31.4 ml LAV(MOD-sp4): 21.1 ml Time Measurements MV dec time: 0.28 sec Doppler Measurements & Calculations MV E max miguel: 43.4 cm/sec Lat Peak E' Miguel: 6.3 cm/sec Med Peak E' Miguel: 7.0 cm/sec MV A max miguel: 63.1 cm/sec E/E' lat: 6.9 E/E' med: 6.2 MV E/A: 0.69 MV V2 max: 63.7 cm/sec MV P1/2t max miguel: 49.5 cm/sec Ao V2 max: 93.1 cm/sec MV max P.6 mmHg MV P1/2t: 68.6 msec Ao max P.5 mmHg MV V2 mean: 32.8 cm/sec MV dec slope: 211.4 cm/sec2 MV mean P.52 mmHg MVA(P1/2t): 3.2 cm2 MV V2 VTI: 15.1 cm LV V1 max: 75.9 cm/sec PA V2 max: 89.6 cm/sec LV V1 max P.4 mmHg ECHO/Echo Complete W/ Contrast Interpretation Summary The study was technically difficult. Contrast injection was performed. Left ventricular systolic function is normal. The estimated ejection fraction is 60 %. Trivial mitral valve insufficiency. Trivial tricuspid valve insufficiency. Mild focal aortic valve calcification. Trivial pulmonic valve insufficiency. Unable to estimate RV systolic pressure/pulmonary artery pressure due to techni kelly difficult study. Diastolic function is indeterminate. Ordering Physician: Ron Gomez Referring Physician: Clifton Jennings Performed By: Myles Chase RCS
== END ==
PROVIDERS: PCP Family Medicine; Referring Provider Internal Medicine Cardiovascular Disease; Visit Provider Internal Medicine Cardiovascular Disease
DX: D05.12 Intraductal carcinoma in situ of left breast (principal)
CPT/HCPCS: 93306; Q9957; A4216; C8929; J3490

== ENCOUNTER → 2022-05-28 | Outpatient (CLI) | payer BC, SELFPAY ==
[2017-01-04 15:17] VITALS: BMI 30.1
[2022-05-28 15:59] LABS: T4 Free Direct 0.96 ng/dL (0.76-1.46); Thyroid Stim Hormone (TSH) 2.35 uIU/mL (0.358-3.74)
== END | disposition home or self-care (01) ==
LOC: LAB 15:06
PROVIDERS: PCP Family Medicine; Referring Provider Nurse Practitioner Family; Visit Provider Nurse Practitioner Family
DX: R00.2 Palpitations (principal); I10 Essential (primary) hypertension
CPT/HCPCS: 36415; 83735; 84439; 84443

== ENCOUNTER → 2022-07-07 | Outpatient (CLI) | payer BC, SELFPAY ==
[2017-01-04 15:17] VITALS: BMI 30.1
--- NOTE | 2022-07-07 07:50 | STRESSREP_ITS ---
Stress Test Report Date: 07-07-2022 Procedure: Exercise tolerance test/imaging study Indications: Shortness of breath; ventricular ectopy; CAD; status post PCI Consent: Per the patient Procedure: The patient exercised on a Teofilo protocol for 4 minutes and 31 seconds completing Stage I and 1 minute and 31 seconds of Stage II achieving a peak heart rate of 146 bpm (93% predicted maximal heart rate) with a peak blood pressure 136/62 mmHg and a peak MET capacity of 7 METs. The baseline ECG demonstrated normal sinus rhythm; nonspecific ST/T wave abnormality. The peak exercise ECG demonstrated somatic/motion artifact with beat to beat ST segment variability with approximately 0.5 mm of horizontal/upsloping ST segment depression in leads V4 through V6 with resolution towards baseline in recovery. There was an occasional PVC pretest and during exercise. The functional capacity was considered fair. There was no complaint of chest discomfort during exercise or recovery. The examination was discontinued secondary to dyspnea, fatigue, leg discomfort. Impression: 1. Technically adequate (percent predicted maximal heart rate greater than 85%) exercise tolerance test 2. Peak exercise ECG with somatic/motion artifact with beat to beat ST segment variability with approximately 0.5 mm horizontal/upsloping ST segment depression in leads V4 through V6 with resolution towards baseline in recovery 3. There was an occasional PVC pretest and during exercise 4. Nuclear images pending Myocardial perfusion imaging study: Technique: The patient was injected with 11.4 mCi of technetium 99m Cardiolite and subsequently rest SPECT Cardiolite nuclear imaging was obtained in the horizontal long, vertical long, and short axis views. The patient exercised on a Teofilo protocol for 4 minutes and 31 seconds completing Stage I and 1 minute and 31 seconds of Stage II achieving a peak heart rate of 146 bpm (93% predicted maximal heart rate) with a peak blood pressure 136/62 mmHg and a peak MET capacity of 7 METs. The patient was injected with 33.3 mCi of technetium 99m Cardiolite and subsequently stress SPECT Cardiolite nuclear imaging was obtained in the horizontal long, vertical long, and short axis views. A gated Cardiolite study at peak stress was obtained. Interpretation: Rest and stress SPECT Cardiolite nuclear imaging status post realignment, normalization, and attenuation correction, demonstrates the appearance of relative uniform tracer uptake and myocardial perfusion appearing within normal limits. There is end systolic thickening and brightening. The gated Cardiolite study demonstrates myocardial thickening and inward wall motion. The reported LVEF is 77%. Impression: 1. Rest and stress SPECT Cardiolite nuclear imaging demonstrate relative uniform tracer uptake and myocardial perfusion appearing within normal limits. 2. The gated Cardiolite study reports an LVEF of 77%. This note was generated with [employer] software. It may contain incorrect words, spelling, and punctuation that were not noted in checking the note before signing.
== END | disposition home or self-care (01) ==
PROVIDERS: PCP Family Medicine; Referring Provider Nurse Practitioner Family; Visit Provider Nurse Practitioner Family
DX: R06.02 Shortness of breath (principal); I49.3 Ventricular premature depolarization; I25.10 Atherosclerotic heart disease of native coronary artery without angina pectoris; I10 Essential (primary) hypertension; E78.2 Mixed hyperlipidemia; R00.2 Palpitations; R06.09 Other forms of dyspnea; D05.12 Intraductal carcinoma in situ of left breast; Z95.5 Presence of coronary angioplasty implant and graft
CPT/HCPCS: 78452; 93017; A9500; A4216

== ENCOUNTER → 2022-11-19 | Outpatient (CLI) | payer MEDICARE, SELFPAY ==
[2017-01-04 15:17] VITALS: BMI 30.1
[2022-11-19 13:11] LABS: Erythrocyte Sedimentation Rate 7 mm/hr (0-30)
[2022-11-19 13:14] LABS: Absolute Lymphocyte Count 1.59 X10^3/uL (0.83-4.51); Absolute Neutrophil Count 3.5 X10^3/uL (2.0-7.7); Basophil# 0.03 X10^3/uL; Basophil% 0.5 % (0-1); Eosinophil# 0.09 X10^3/uL; Eosinophils% 1.6 % (0-5); Hematocrit 37.7 % (37-47); Hemoglobin 12.5 g/dL (12.0-15.0); Lymphocyte # 1.59 X10^3/ul (0.83-4.51); Lymphocyte % 27.9 % (19-41); Mean Corp Hgb Conc 33.2 g/dL (32-36); Mean Corpuscular Hgb 31.3 pg (27.0-32.0); Mean Corpuscular Volume 94.5 fL (81-99); Mean Platelet Vol. 9.7 fl (6.2-12.0); Monocyte# 0.47 X10^3/uL; Monocyte% 8.2 % (0-10); NRBC Flagged by Analyzer 0 % (0-5); Neutrophil % 61.4 % (47-70); Platelet Count 218 K/mm3 (150-450); RBC Distribution Width CV 13.4 % (11.6-14.6); RBC Distribution Width SD 46.2 fl (35.1-43.9); Red Blood Count 3.99 M/mm3 (4.2-5.4); White Blood Count 5.7 K/mm3 (4.4-11.0)
[2022-11-19 13:45] LABS: AST(SGOT) 13 U/L (15-37); Alanine Aminotransfer ALT/SGPT 21 U/L (13-56); Albumin, Serum 3.4 g/dL (3.2-5.0); Alkaline Phosphatase 40 U/L (45-117); Amylase 58 U/L (25-115); Anion Gap 7 (5-15); BUN 15 mg/dL (7-18); BUN/Creat Ratio 19.2 RATIO (10-20); CRP 8.32 mg/L (0.0-3.0); Calcium,Total 8.9 mg/dL (8.5-10.1); Chloride 103 mmol/L (98-107); Creatinine, Serum 0.78 mg/dL (0.55-1.02); EST Glomerular Filtration Rate 79 mL/min (>60); Est Glom Filt Rate - Afr Amer 95 mL/min (>60); Globulin 3.5 g/dL (2.2-4.2); Glucose 193 mg/dL (74-106); LDH 169 U/L (84-246); Lipase 490 U/L (73-393); Potassium 4.1 mmol/L (3.5-5.1); Protein, Total 6.9 g/dL (6.4-8.2); Sodium Level 139 mmol/L (136-145)
[2022-11-23 10:07] LABS: Endomysial Antibody IgA Negative (Negative); Immunoglobulin A 160 mg/dL (87-352)
[2022-11-23 22:10] LABS: Carbohydrate Ag 19-9 2261 35 U/mL (0-35); t-Transglutaminase IgA <2 U/mL (0-3)
== END | disposition home or self-care (01) ==
LOC: LAB 12:13
PROVIDERS: PCP Family Medicine; Referring Provider Nurse Practitioner Adult Health; Visit Provider Nurse Practitioner Adult Health
DX: R10.13 Epigastric pain (principal); I20.8 Other forms of angina pectoris; K58.9 Irritable bowel syndrome, unspecified
CPT/HCPCS: 36415; 80053; 82150; 82784; 83516; 83615; 83690; 85025; 85652; 86140; 86255; 86301

== ENCOUNTER → 2022-11-23 | Outpatient (CLI) | payer MEDICARE, SELFPAY ==
[2017-01-04 15:17] VITALS: BMI 30.1
[2022-11-24 14:23] LABS: Fats, Neutral Increased (.); Fats, Total Normal (.)
[2022-11-25 22:20] LABS: Pancreatic Elastase, Fecal > 500 (>200)
== END | disposition home or self-care (01) ==
LOC: LABSPEC 10:19
PROVIDERS: PCP Family Medicine; Referring Provider Nurse Practitioner Adult Health; Visit Provider Nurse Practitioner Adult Health
DX: R10.13 Epigastric pain (principal)
CPT/HCPCS: 82653; 82705

== ENCOUNTER 2022-12-01 11:22 | Day surgery (SDC) | payer MEDICARE, SELFPAY ==
[2017-01-04 15:17] VITALS: BMI 30.1
--- NOTE | 2022-12-01 | GASB_PTH ---
PATIENT: DOM BARBA LOC: EN U#:[id number] AGE/SX: 67/F ROOM: RE12/01/[address]: Dr. Carson Alcantar DO : 1955 BED: DIS: 12/01/2022 SPEC #: [id number] RECD: 12/01/22 14:13 STATUS: SOL JONATAN #: [id number] ROMEL: 12/01/22 00:[address]: Carson Alcantar DEPT: SURGICAL PATHOLOGY RECD BY: Shahab Mcdonnell ENTERED: 12/01/22 14:13 SP TYPE: Gastric Bx OTHR DR: Dr. Clifton Jennings MD Tissues: A - Duodenum, NOS B - Gastric mucous membrane C - Esophageal mucous membrane D - COLON BIOPSY Procedures: Special Stain Group II Surgery Specimen Level IV Alcian Blue/PAS (control) HEADER OPERATION: Colonoscopy with biopsy, EGD ([facility] [place]) with biopsy PRE-OP DIAGNOSIS: Epigastric pain, IBS, fatty liver TISSUE SUBMITTED: A ? Duodenal biopsy, B ? Antral biopsy for H. pylori and path, C ? Distal esophagus biopsy, D ? Random colon biopsy MICROSCOPIC DIAGNOSIS A. Duodenal biopsy: Fragments of duodenal mucosa, no pathologic diagnosis. B. Antral biopsy: Mild gastritis. See microscopic description and comment. C. Distal esophagus, biopsy: Fragments of gastroesophageal mucosa with chronic inflammation. Intestinal metaplasia (goblet cell metaplasia) not identified. See comment. D. Colon, random biopsy: Fragments of colonic mucosa, no pathologic diagnosis. SJ:larry 12/02/2022 COMMENT B. The results of immunohistochemistry for Helicobacter pylori will be reported separately ([id number]). C. Alcian blue/PAS stain with matched control is used in the evaluation of the specimen. MICROSCOPIC DESCRIPTION Slides are reviewed. B. The specimen shows fragments of gastric mucosa with chronic inflammatory cell infiltrates in the lamina propria consisting of lymphocytes and plasma cells, consistent with mild chronic gastritis. GROSS DESCRIPTION A - Received in fixative is one container labeled with the patient's name and designated duodenal biopsy. The specimen consists of multiple irregular fragments of light jaramillo soft tissue that in aggregate measure 1 x 0.3 x 0.1 cm. The specimen is totally submitted in one cassette. B - Received in fixative is one container labeled with the patient's name and designated antral biopsy. The specimen consists of one irregular fragment of light jaramillo soft tissue that measures 0.4 x 0.4 x 0.1 cm. The specimen is totally submitted in one cassette. C - Received in fixative is one container labeled with the patient's name and designated distal esophagus biopsy. The specimen consists of multiple irregular fragments of light jaramillo soft tissue that in aggregate measure 1.2 x 0.3 x 0.1 cm. The specimen is totally submitted in one cassette. D - Received in fixative is one container labeled with the patient's name and designated random colon biopsy. The specimen consists of multiple irregular fragments of light jaramillo soft tissue that in aggregate measure 1 x 0.6 x 0.1 cm. The specimen is totally submitted in one cassette. / SJ:rg 12/01/2022 TC:3 CPT: 61634 x4, 20459
--- NOTE | 2022-12-01 11:48 | HP.PCM_ITS ---
History and Physical Date of Admission: 12/01/22 DOM BARBA, is a 67 F who presents to the office today to establish with GI for epigastric pain that occurs after eating which began in 08/2022. Happens about 2x per week, can be after eating but other times not postprandial. It hasn't woken her up. Doesn't radiate. Describes pain as dull, feels like there's swelling. Pain lasts a few minutes. No aggravating factors. Seems to be better since starting omeprazole in 08/2022. Negative H pylori breath test. She reports hx of gastritis. Used to have significant heartburn, but that was relieved with changing the time of day she takes tamoxifen. Used famotidine in the past when she had heartburn. Mild nausea with the epigastric pain, no vomiting. No dysphagia. Reports long hx of IBS. Can have explosive diarrhea from certain foods, especially greasy or fatty, or from stress. Takes dicyclomine prn, very helpful but tends to constipate her. Used to take Mylanta regularly. Less diarrhea since she retired last year. Has tried fiber gummies w/o relief of constipation. Hemorrhoids flare with constipation. Has tried miralax, not sure if it helped. Often has cramping across the lower abdomen. No melena or hematochezia. Takes APAP prn, rarely takes NSAIDs. 09/03/22 labs at [facility]: CBC unremarkable, hgb 13.5, plts 252, amylase 74, lipase 133 high, normal hepatic function panel 09/15/22 CT chest/abd/pelvis at [facility]: subcentimeter hypodense too small to characterize left hepatic lesion Has upcoming CT at [facility] to f/u the liver lesion 09/09/22 RUQ US at [facility]: fatty liver PMH includes DM2, SEBAS, narcolepsy, HTN, DCIS, rosacea (scalp, face, eyes), psoriasis, TIA, hyperlipidemia, CAD, vit D deficiency PSH includes cholecystectomy, hysterectomy, , cardiac stents, parathyroidectomy Hx hyperplastic colon polyps, last colonoscopy 2018 EGD 2018 Her mother from pancreatic cancer age 57 Exam Const General: cooperative, healthy appearing and comfortable Orientation: alert, awake and oriented x3 HENMT Head: normal to inspection Eyes Sclera: sclerae normal Resp Effort & Inspection: normal respiratory effort GI Inspection: normal to inspection Palpation: soft, no hepatosplenomegaly, no masses and tender in the epigastrum and in the LLQ General: bladder normal to palpation Bimanual Exam- Vagina & Uterus: bladder normal to palpation Skin General: no jaundice Neuro Gait: normal gait Psych Mood: euthymic mood Quality Reporting Tobacco Screening ([facility] 138) Smoking Status: Former smoker Assessment and Plan Assessment and Plan (1) Epigastric pain: ?Status:?Chronic ?Plan: 67 yr old female with epigastric pain, elevated lipase, IBS, hx gastritis, DM2, hx DCIS, FH pancreatic cancer DDx includes gastritis, PUD, EPI, pancreatitis Will contact her via portal with lab results and any new plan EGD and colonoscopy w/ office f/u 2 wks later (2) IBS (irritable bowel syndrome): ?Status:?Chronic ?Plan: Diarrhea due to greasy foods or stress, dicyclomine prn is helpful but can cause constipation; at other times she will have constipation. Will address more later. (3) Fatty liver: ?Status:?Chronic ?Plan: To be addressed in the future ? ? ? Orders: Orders Amylase Today R10.13 - Epigastric pain ? Lipase Today R10.13 - Epigastric pain ? CA 19-9 Serial Monitor Today R10.13 - Epigastric pain ? Fecal Fat, Qualitative Today R10.13 - Epigastric pain ? Pancreatic Elastase, Fecal Today R10.13 - Epigastric pain ? Comprehensive Metabolic Profil Today R10.13 - Epigastric pain ? CRP Today R10.13 - Epigastric pain ? Erythrocyte Sed Rate Today R10.13 - Epigastric pain ? CBC W/Diff, Automated Today I20.8 - Other forms of angina pectoris, R10.13 - Epigastric pain ? Celiac Disease Profile Today K58.9 - Irritable bowel syndrome without diarrhea, R10.13 - Epigastric pain ? LDH Today K58.9 - Irritable bowel syndrome without diarrhea, R10.13 - Epigastric pain ? Medications: Discontinued famotidine (Pepcid) ?? Discontinued Reason:? Pt no longer taking 20 mg? PO QHS ? ? I have examined the patient and the H&P has been reviewed. There are no clinical changes since date of exam.
[2022-12-01] MEDS: Lactated Ringers 1,000 ML 15 ML IV (11:50)
[2022-12-01 12:07] VITALS: BP 120/51; PULSE 62; RESP 16; TEMP 36.2; O2SAT 98; BMI 25.8
--- NOTE | 2022-12-01 12:45 | IMM_PTH ---
PATIENT: DOM BARBA LOC: EN U#:[id number] AGE/SX: 67/F ROOM: RE12/01/[address]: Dr. Carson Alcantar DO : 1955 BED: DIS: 12/01/2022 SPEC #: [id number] RECD: 12/01/22 14:43 STATUS: SOL REQ #: [id number] ROMEL: 12/01/22 12:[address]: Carson Alcantar DEPT: IMMUNOHISTOCHEMISTRY RECD BY: Daysi Quintanilla ENTERED: 12/01/22 14:43 SP TYPE: IMMUNO OTHR DR: Dr. Clifton Jennings MD Tissues: B - Stomach, NOS Procedures: H Pylori (initial) PHYSICIAN & INSTITUTION [place] [id number] SPECIMEN INFORMATION: Tissue Source: B ? Antral biopsy Clinical Info: Epigastric pain, IBS, fatty liver Specimen Number: [id number] CPT code: 00027 METHODOLOGY: Deparaffinized sections of prefer/formalin-fixed tissue or PAP/DQ stained slides are incubated with monoclonal/polyclonal antibodies/oligonucleotide probes. Localization is made via biotin free immunoperoxidase method. Appropriate controls are performed and reacted as expected. Results on target cell population are indicated in the following table: RESULTS: ANTIBODY / CLONE RESULT Block B H Pylori (polyclonal) negative These tests were developed and their performance characteristics determined by [facility]. They may not have been cleared or approved by the U.S. Food and Drug Administration. The FDA has determined that such clearance or approval is not necessary. The above immunohistochemical/dualISH markers are ordered and reviewed by the Pathologist. INTERPRETATION: B. Antral biopsy: Negative for Helicobacter pylori organisms. SJ:larry 12/02/2022
[2022-12-01 13:01] LABS: Bedside Glucose 192 mg/dL (74-106)
--- NOTE | 2022-12-01 13:55 | OP.EGD_ITS ---
Patient Name: Luz Marina Avila Procedure Date: 12/01/2022 1:22 PM Date of : 1955 Age: 67 Procedure: Upper GI endoscopy Indications: Epigastric abdominal pain, Functional Dyspepsia Providers: Carson Alcantar DO Medicines: Monitored Anesthesia Care Patient Profile: This is a 67 year old female. Refer to note in patient chart for documentation of history and physical. Patient has symptoms of chronic abdominal cramping, chronic epigastric abdominal pain and chronic dyspepsia. Complications: No immediate complications. Procedure: Pre-Anesthesia Assessment: - Prior to the procedure, a History and Physical was performed, and patient medications and allergies were reviewed. The risks and benefits of the procedure and the sedation options and risks were discussed with the patient. All questions were answered and informed consent was obtained. Patient identification and proposed procedure were verified by the physician in the pre-procedure area. Mental Status Examination: alert and oriented. Airway Examination: normal oropharyngeal airway and neck mobility. Respiratory Examination: clear to auscultation. CV Examination: normal. Prophylactic Antibiotics: The patient does not require prophylactic antibiotics. Prior Anticoagulants: The patient has taken no previous anticoagulant or antiplatelet agents. After reviewing the risks and benefits, the patient was deemed in satisfactory condition to undergo the procedure. The anesthesia plan was to use monitored anesthesia care (MAC). Immediately prior to administration of medications, the patient was re-assessed for adequacy to receive sedatives. The heart rate, respiratory rate, oxygen saturations, blood pressure, adequacy of pulmonary ventilation, and response to care were monitored throughout the procedure. The physical status of the patient was re-assessed after the procedure. After obtaining informed consent, the endoscope was passed under direct vision. Throughout the procedure, the patient's blood pressure, pulse, and oxygen saturations were monitored continuously. The pediatric colonoscope was introduced through the mouth, and advanced to the second part of duodenum. The upper GI endoscopy was accomplished without difficulty. The patient tolerated the procedure well. Scope In: 1:27:49 PM Scope Out: 1:33:26 PM Total Procedure Duration Time 0 hours 5 minutes 37 seconds Findings: The Z-line was irregular and was found 37 cm from the incisors. Biopsies were taken with a cold forceps for histology. Verification of patient identification for the specimen was done. Estimated blood loss was minimal. Diffuse mildly erythematous mucosa without bleeding was found in the gastric body. Biopsies were taken with a cold forceps for histology. Verification of patient identification for the specimen was done. Estimated blood loss was minimal. No gross lesions were noted in the duodenal bulb, in the first portion of the duodenum and in the second portion of the duodenum. Biopsies were taken with a cold forceps for histology. Verification of patient identification for the specimen was done. Impression: - Z-line irregular, 37 cm from the incisors. Biopsied. - Erythematous mucosa in the gastric body. Biopsied. - No gross lesions in the duodenal bulb, in the first portion of the duodenum and in the second portion of the duodenum. Biopsied. Recommendation: - Discharge patient to home. - Resume previous diet. - Continue present medications. - Await pathology results. Procedure Code(s): --- Professional --- 09187, Esophagogastroduodenoscopy, flexible, transoral; with biopsy, single or multiple CPT copyright 2017 [employer]. All rights reserved. The codes documented in this report are preliminary and upon certified procedural coder review may be revised to meet current compliance requirements. Carson Alcantar DO 12/01/2022 1:55:04 PM This report has been signed electronically. Number of Addenda: 0 Note Initiated On: 12/01/2022 1:22 PM
--- NOTE | 2022-12-01 13:56 | OP.CCLET_ITS ---
12/01/2022 Clifton Jennings MD Re : Upper GI endoscopy procedure for Luz Marina Avila Dear Dr. Jennings This procedure was performed on Thursday, December 01, 2022. My impressions and recommendations are as follows: Impressions : - Z-line irregular, 37 cm from the incisors. Biopsied. - Erythematous mucosa in the gastric body. Biopsied. - No gross lesions in the duodenal bulb, in the first portion of the duodenum and in the second portion of the duodenum. Biopsied. Recommendations : - Discharge patient to home. - Resume previous diet. - Continue present medications. - Await pathology results. My findings are described in the full procedure note, which is enclosed. If I can be of further assistance, please feel free to contact me at . Sincerely, Carson Alcantar, 12/01/2022 1:55:04 PM This report has been signed electronically.
--- NOTE | 2022-12-01 14:00 | OP.CCLET_ITS ---
12/01/2022 Clifton Jennings MD Re : Colonoscopy procedure for Luz Marina Avila Dear Dr. Jennings This procedure was performed on Thursday, December 01, 2022. My impressions and recommendations are as follows: Impressions : - Diverticulosis in the recto-sigmoid colon and in the sigmoid colon. - Congested mucosa in the recto-sigmoid colon, in the descending colon and at the hepatic flexure. Biopsied. - The examined portion of the ileum was normal. Recommendations : - Discharge patient to home. - Resume previous diet. - Continue present medications. - Await pathology results. - Repeat colonoscopy in 5 years for surveillance based on pathology results. - Return to GI office. My findings are described in the full procedure note, which is enclosed. If I can be of further assistance, please feel free to contact me at . Sincerely, Carson Alcantar, 12/01/2022 1:59:15 PM This report has been signed electronically.
--- NOTE | 2022-12-01 14:00 | OP.COLON_ITS ---
Patient Name: Luz Marina Avila Procedure Date: 12/01/2022 1:33 PM Date of : 1955 Age: 67 Procedure: Colonoscopy Indications: Screening for colorectal malignant neoplasm Providers: Carson Alcantar DO Medicines: Monitored Anesthesia Care Patient Profile: This is a 67 year old female. Refer to note in patient chart for documentation of history and physical. Patient has symptoms of chronic abdominal cramping, chronic epigastric abdominal pain and chronic dyspepsia. Last Colonoscopy: date unknown. Unable to locate last colonoscopy report. Complications: No immediate complications. Procedure: Pre-Anesthesia Assessment: - Prior to the procedure, a History and Physical was performed, and patient medications and allergies were reviewed. The risks and benefits of the procedure and the sedation options and risks were discussed with the patient. All questions were answered and informed consent was obtained. Patient identification and proposed procedure were verified by the physician in the pre-procedure area. Mental Status Examination: alert and oriented. Airway Examination: normal oropharyngeal airway and neck mobility. Respiratory Examination: clear to auscultation. CV Examination: normal. Prophylactic Antibiotics: The patient does not require prophylactic antibiotics. Prior Anticoagulants: The patient has taken no previous anticoagulant or antiplatelet agents. After reviewing the risks and benefits, the patient was deemed in satisfactory condition to undergo the procedure. The anesthesia plan was to use monitored anesthesia care (MAC). Immediately prior to administration of medications, the patient was re-assessed for adequacy to receive sedatives. The heart rate, respiratory rate, oxygen saturations, blood pressure, adequacy of pulmonary ventilation, and response to care were monitored throughout the procedure. The physical status of the patient was re-assessed after the procedure. After I obtained informed consent, the scope was passed under direct vision. Throughout the procedure, the patient's blood pressure, pulse, and oxygen saturations were monitored continuously. The pediatric colonoscope was introduced through the anus and advanced to the terminal ileum. The colonoscopy was performed without difficulty. The patient tolerated the procedure well. The quality of the bowel preparation was good. Scope In: 1:35:15 PM Scope Withdrawal Time 0 hours 10 minutes 13 seconds Scope Out: 1:49:07 PM Total Procedure Duration Time 0 hours 13 minutes 52 seconds Findings: The perianal and digital rectal examinations were normal. A few small-mouthed diverticula were found in the recto-sigmoid colon and sigmoid colon. An area of mildly congested mucosa was found in the recto-sigmoid colon, in the descending colon and at the hepatic flexure. Biopsies were taken with a cold forceps for histology. Verification of patient identification for the specimen was done. Estimated blood loss was minimal. The terminal ileum appeared normal. Impression: - Diverticulosis in the recto-sigmoid colon and in the sigmoid colon. - Congested mucosa in the recto-sigmoid colon, in the descending colon and at the hepatic flexure. Biopsied. - The examined portion of the ileum was normal. Recommendation: - Discharge patient to home. - Resume previous diet. - Continue present medications. - Await pathology results. - Repeat colonoscopy in 5 years for surveillance based on pathology results. - Return to GI office. Procedure Code(s): --- Professional --- 90775, Colonoscopy, flexible; with biopsy, single or multiple CPT copyright 2017 [employer]. All rights reserved. The codes documented in this report are preliminary and upon returns processor review may be revised to meet current compliance requirements. Carson Alcantar DO 12/01/2022 1:59:15 PM This report has been signed electronically. Number of Addenda: 0 Note Initiated On: 12/01/2022 1:33 PM
[2022-12-01 14:15] VITALS: BP 103/70; BP 120/51; PULSE 47; RESP 48; TEMP 36.4; O2SAT 97
[2022-12-01 14:20] VITALS: BP 105/54; BP 120/51; PULSE 60; RESP 19; O2SAT 99
[2022-12-01 14:25] VITALS: BP 113/70; BP 120/51; PULSE 54; RESP 18; O2SAT 98
[2022-12-01 14:30] VITALS: BP 120/51; BP 120/69; PULSE 60; RESP 18; TEMP 36.6; O2SAT 99
[2022-12-01 14:51] VITALS: BP 120/51
== END 2022-12-01 15:01 | disposition home or self-care (01) ==
LOC: EN 11:29 → AC 11:39
PROVIDERS: PCP Family Medicine; Referring Provider Family Medicine; Visit Provider Internal Medicine Gastroenterology
PROC: 0DJD8ZZ Inspection of Lower Intestinal Tract, Via Natural or Artificial Opening Endoscopic (ICD-10-PCS; CPT 45378; principal; 2022-12-01 12:40)
DX: E11.9 Type 2 diabetes mellitus without complications (principal); K29.70 Gastritis, unspecified, without bleeding; K20.90 Esophagitis, unspecified without bleeding; K57.30 Diverticulosis of large intestine without perforation or abscess without bleeding; K63.89 Other specified diseases of intestine; K31.89 Other diseases of stomach and duodenum; K76.0 Fatty (change of) liver, not elsewhere classified; I25.10 Atherosclerotic heart disease of native coronary artery without angina pectoris; I10 Essential (primary) hypertension; Z86.73 Personal history of transient ischemic attack (TIA), and cerebral infarction without residual deficits; Z95.5 Presence of coronary angioplasty implant and graft; Z87.891 Personal history of nicotine dependence; Z79.899 Other long term (current) drug therapy; Z79.84 Long term (current) use of oral hypoglycemic drugs; Z80.0 Family history of malignant neoplasm of digestive organs; Z86.16 Personal history of COVID-19
CPT/HCPCS: 43239; 45380; 82962; 88305; 88313; 88342; J7120; J2405

== ENCOUNTER 2023-01-07 15:00 | Outpatient (RCR) | payer MEDICARE, SELFPAY ==
[2017-01-04 15:17] VITALS: BMI 30.1
== END 2023-02-05 23:59 ==
LOC: DC 15:00
PROVIDERS: PCP Family Medicine; Visit Provider Internal Medicine Gastroenterology
DX: E11.9 Type 2 diabetes mellitus without complications (principal); R19.7 Diarrhea, unspecified
CPT/HCPCS: 97802

== ENCOUNTER 2023-02-09 09:50 | Outpatient (RCR) | payer MEDICARE, SELFPAY ==
[2017-01-04 15:17] VITALS: BMI 30.1
== END 2023-03-07 23:59 ==
LOC: DC 09:50
PROVIDERS: PCP Family Medicine; Visit Provider Internal Medicine Gastroenterology
DX: E11.9 Type 2 diabetes mellitus without complications (principal); R19.7 Diarrhea, unspecified
CPT/HCPCS: 97803

== ENCOUNTER 2023-04-20 10:06 | Outpatient (RCR) | payer MEDICARE, SELFPAY ==
[2017-01-04 15:17] VITALS: BMI 30.1
== END 2023-05-07 23:59 ==
LOC: DC 10:06
PROVIDERS: PCP Family Medicine; Referring Provider Internal Medicine Gastroenterology; Visit Provider Internal Medicine Gastroenterology
DX: E11.9 Type 2 diabetes mellitus without complications (principal); R19.7 Diarrhea, unspecified
CPT/HCPCS: 97803

== ENCOUNTER 2023-09-11 14:28 | Emergency (ER) | payer MEDICARE, SELFPAY ==
[2017-01-04 15:17] VITALS: BMI 30.1
[2023-09-11 14:30] VITALS: BP 107/94; PULSE 91; RESP 20; TEMP 37.2; O2SAT 96; BMI 25.4
--- NOTE | 2023-09-11 14:44 | RAD_ITS ---
EXAM: XR CHEST, 2 VIEWS CLINICAL INDICATION: cough TECHNIQUE: Frontal and lateral views of the chest. COMPARISON: XR Chest dated 10/06/2018 FINDINGS: LUNGS AND PLEURAL SPACES: No consolidation or edema. No pneumothorax. No effusion. HEART: Stable normal heart size. Coronary artery stent again noted. MEDIASTINUM: No mediastinal or hilar mass. BONES/JOINTS: No acute abnormality. RAD/Chest PA and Lateral IMPRESSION: No acute cardiopulmonary abnormality. No interval change Electronically Signed: Tony Condon MD at 15:32 EDT ,
--- NOTE | 2023-09-11 14:44 | EX.ED.DYSGE1 ---
HPI <NEGRO Herndon - Last Filed: 09/11/23 15:56> History of Present Illness Chief Complaint: General Illness Narrative Narrative: WithPatient is a 68-year-old female history of hypertension, diabetes, GERD history of breast cancer presents to the emergency department for 4 days of cough, generalized body aches, fever and chills. Patient's is positive for COVID-19, she was tested on Wednesday however it was negative. She states that the symptoms have continued, she has a cough and she is concerned for pneumonia. She denies any chest pain, nausea or vomiting. [facility] <NEGRO Herndon - Last Filed: 09/11/23 15:56> [facility] Medical History (Updated 09/11/23 @ 15:55 by NEGRO Herndon) Anxiety Arthritis Atherosclerotic heart disease of [place] coronary artery without angina pectoris Breast cancer, left Cardiology follow-up encounter Cardiovascular stress test abnormal Chest pain Colon polyp COVID-19 (~10/2022) CPAP (continuous positive airway pressure) dependence Dietary restriction Discoloration of skin Easy bruising Encounter for long-term (current) use of other medications Epigastric pain Excessive bleeding Former smoker Gastric reflux Heart palpitations History of pain when walking History of TIA (transient ischemic attack) Hx of cardiovascular stress test (~09/13/18) Hx of echocardiogram (~06/30/17) Hx of gastritis IBS (irritable bowel syndrome) Injury of head and neck Leg cramps Loss of hearing Menieres disease Mixed hyperlipidemia Nausea Presence of stent in coronary artery (~01/05/17) Psoriasis Rosacea Shortness of breath on exertion Vitamin D deficiency Wears glasses Home Medications L.acidoph, paracasei,B. lactis 10 billion cell capsule 1 ea PO QHS 09/23/16 [History Last Taken 06/28/17] cholecalciferol (vitamin D3) 50 mcg (2,000 unit) capsule 4,000 unit PO DAILY 08/22/18 [History Last Taken Unknown] montelukast 10 mg tablet 10 mg PO QPM 08/22/18 [History Last Taken Unknown] coenzyme Q10 100 mg capsule 100 mg PO DAILY 08/23/19 [History Last Taken Unknown] metformin 500 mg 24 hr tablet,extended release 1,000 mg PO BID 11/24/21 [History Last Taken Unknown] potassium chloride 10 mEq tablet,extended release 20 meq PO BID 11/24/21 [History Last Taken Unknown] tamoxifen 20 mg tablet 20 mg PO DAILY 11/24/21 [History Last Taken Unknown] doxycycline monohydrate 50 mg capsule 50 mg PO DAILY PRN Skin 05/28/22 [History Last Taken Unknown] nitroglycerin 0.4 mg sublingual tablet 0.4 mg sublingual Q5M PRN Chest Pain #25 tabs 05/28/22 [Rx Last Taken Unknown] clobetasol 0.05 % topical gel 1 applic topical DAILY PRN Skin Cleansing 09/03/22 [History Last Taken Unknown] magnesium oxide 500 mg tablet 500 mg PO DAILY 09/03/22 [History Last Taken Unknown] omeprazole 40 mg capsule,delayed release 40 mg PO DAILY 11/30/22 [History Last Taken Unknown] utuplp-bqsgtmnj-rwqozra 36,000-114,000-180,000 unit capsule,delay rel (Creon) See Rx Instructions PO .COMPLEX #56 caps 03/04/23 [Rx Last Taken Unknown] metoprolol tartrate 25 mg tablet 25 mg PO BID #180 tabs 03/15/23 [Rx Last Taken Unknown] Handicap Placard #1 ea 08/30/23 [Rx Last Taken Unknown] calcium citrate 315 mg calcium-vitamin D3 6.25 mcg (250 unit) tablet 2 tab PO DAILY 08/30/23 [History Last Taken Unknown] ezetimibe 10 mg tablet (Zetia) 10 mg PO DAILY 08/30/23 [History Last Taken Unknown] ketoconazole 2 % shampoo topical 08/30/23 [History Last Taken Unknown] lactulose 10 gram/15 mL oral solution 15 ml PO DAILY PRN 08/30/23 [History Last Taken Unknown] lisinopril 5 mg tablet 5 mg PO BID This is a dose increase 08/30/23 [History Last Taken Unknown] Allergy/AdvReac Type Severity Reaction Status Date / Time lovastatin Allergy Intermediate Other Verified 09/11/23 14:30 rosuvastatin [From Crestor] Allergy Intermediate Other Verified 09/11/23 14:30 ticagrelor [From Brilinta] Allergy Intermediate Shortness Verified 09/11/23 14:30 of breath hydrocodone Allergy Hives Verified 09/11/23 14:30 cephalexin monohydrate AdvReac Other Verified 09/11/23 14:30 [From Keflex] pravastatin AdvReac myalgias Verified 09/11/23 14:30 Family History Mother Cancer pancreatic cancer Father , [place] age 20's (premature CAD), 3 vessel CABG, hyperlipidemia, CHf Myocardial infarction CAD (coronary artery disease) Brother Cancer lung cancer Surgical History Ductal carcinoma in situ (DCIS) of left breast History of bunionectomy of left great toe History of cardiac catheterization (~10/12/18) History of carpal tunnel release of both wrists History of section History of cholecystectomy History of coronary artery stent placement (~12/30/16) History of detached retina repair (~04/2023) History of hysterectomy History of lumpectomy of left breast History of parathyroidectomy Hx of foot surgery Hx of release of tendon (~01/13/23) Status post excision of lipoma (~11/2018) Status post lumbar spine operative procedure for decompression of spinal cord Status post trigger finger release Social History Smoking Status: Former smoker quit date: 11/08/87 pack-years: 6 how long ago did patient quit smokin second hand exposure: Yes alcohol intake: never substance use type: does not use caffeine: Yes Type: coffee Number of servings: 2 what type of physical activity do you participate in: none seatbelt use: always do you feel safe at home: Yes ROS <NEGRO Herndon - Last Filed: 09/11/23 15:56> ROS ED ROS Narrative Constitutional: Negative for weight loss, weakness. Positive for fever and chills Eyes: Negative for vision loss, vision change, double vision ENT: Negative for any sore throat, ear pain, congestion Cardiovascular: Negative for any chest pain, tightness, palpitations Respiratory: Negative for any sputum production, hemoptysis, dyspnea, dyspnea on exertion, orthopnea. Positive for cough Gastrointestinal: Negative for any abdominal pain, nausea, vomiting, diarrhea, constipation, blood in stool, blood in vomit : Negative for any urinary frequency, dysuria, retention, blood in urine Muscle skeletal: Negative for any stiffness, arthralgias, neck pain, back pain. Positive for myalgias, joint pain Neurological: Negative for any syncope, numbness or tingling, dizziness. Positive for head Skin: Negative for any rashes, lumps, itching, abrasions, lacerations Psychiatric: Negative for any depression, anxiety, stress, suicidal ideation, homicidal ideation Hematologic: Negative for any easy bruising, excessive bruising, easy bleeding Allergies: Negative for any eczema, hives, rash EXAM <NEGRO Herndon - Last Filed: 09/11/23 15:56> Physical Exam Narrative Exam Narrative: Vital signs reviewed. HEET: Head normocephalic atraumatic, TMs clear bilaterally. Posterior pharynx is clear, moist mucous membranes. Nares clear bilaterally. Neck: Supple with no lymphadenopathy or tenderness. No signs of meningismus, negative jolt sign. Cardiac: Regular rate and rhythm no murmurs gallops or rubs, equal peripheral pulses bilaterally. Respiratory: Lungs clear to auscultation bilaterally. No chest tenderness. Abdomen: Soft, nontender, nondistended. No abdominal bruit or pulsatile masses. No hepatosplenomegaly Extremities: No peripheral edema, no signs of gross trauma or deformity. Active full range of motion of all extremities. Neuro: Cranial nerves II through XII intact, no focal neurological deficits. Skin: Clean dry and intact with no rash, purpura, petechiae, vesicles or pustules. Backs/flank: No CVA tenderness, no midline spinal tenderness, no deformity. Psych: Normal mood and affect. No SI, HI or acute psychosis. Const Vital Signs: 09/11/23 14:30 09/11/23 15:36 Temperature 98.9 F Temperature Source Temporal Pulse Rate 91 Respiratory Rate 20 H Respiratory Effort Normal Non-Labored Respiratory Pattern Normal Blood Pressure 107/94 H Blood Pressure Mean 98 Pulse Ox 96 Oxygen Delivery Method Room Air <Dr. Rafita Fraser DO - Last Filed: 09/11/23 21:06> Physical Exam Const Vital Signs: 09/11/23 14:30 09/11/23 15:36 Temperature 98.9 F Temperature Source Temporal Pulse Rate 91 Respiratory Rate 20 H Respiratory Effort Normal Non-Labored Respiratory Pattern Normal Blood Pressure 107/94 H Blood Pressure Mean 98 Pulse Ox 96 Oxygen Delivery Method Room Air MDM <NEGRO Herndon - Last Filed: 09/11/23 15:56> [facility] Radiography Diagnostic Testing: Clinical Impression(s) from Imaging Studies Chest X-Ray 09/11/23 14:44 IMPRESSION: No acute cardiopulmonary abnormality. No interval change Electronically Signed: Tony Condon MD at 15:32 EDT Reading Location ID and State: [address] [place] [address] Tel , Service support , Treatment and Re-Evaluation :: Patient appears generally well, patient appears nontoxic, vital signs are stable. Presenting to the emergency department with multiple viral-like symptoms. Visual examination of the patient is unremarkable. Patient no red flag signs. Vital signs are stable here, differential diagnosis includes viral syndrome, influenza, COVID-19, pneumonia. She will receive a two-view chest x-ray, this will be interpreted by the ER physician. Patient received by mouth Tylenol here. Patient appears generally well, patient appears nontoxic, patient is positive for COVID-19. Due to the patient's symptoms, this is consistent. Patient will maintain hydration, she continue take Tylenol. At this time, patient looks well, I believe the patient will do well in the future. She will return here for any worsening symptoms. Patient two-view chest x-ray interpreted the ER physician was unremarkable. Patient is happy with the plan of care, patient stable for discharge. <Dr. Rafita Fraser, DO - Last Filed: 09/11/23 21:06> [facility] Narrative Medical decision making narrative: I have personally performed a face to face assessment of the patient and have reviewed the BINDU Note. I performed a substantive portion of the visit including all aspects of the following. My kohler findings include: History is [patient presents with headache, cough, and fever x3 days. Patient states that her has COVID at home. She and her both have had COVID last and October 2022. Patient did not get her flu vaccine. Cough is mostly nonproductive. She denies chest pain or shortness of breath.] Exam is [HEENT-PERRLA, EOMI. Cranial nerves II through XII grossly intact. TMs clear. Mucous membranes moist. No adenopathy. Cardiovascular-regular rate and rhythm without murmur or ectopy Lungs-clear to auscultation, chest wall stable without crepitus or subcu emphysema Abdomen-normoactive bowel sounds, soft, nontender, no rebound or rigidity, no peritoneal signs. Extremities-intact ?4, normal range of motion, normal pulses, atraumatic] Medical Decison Making [patient will have COVID and flu testing as well as chest x-ray to evaluate.] Chest x-ray showed no acute disease process. Patient positive for COVID-19. Recommended supportive care. Patient to follow-up with her primary care physician within next 3 to 5 days. She is advised to return if increasing shortness of breath or condition worsening way. Other additions or changes: [None] Radiography Diagnostic Testing: Clinical Impression(s) from Imaging Studies Chest X-Ray 09/11/23 14:44 IMPRESSION: No acute cardiopulmonary abnormality. No interval change Electronically Signed: Tony Condon MD at 15:32 EDT , 1 view chest x-ray obtained interpreted by myself as no evidence of infiltrate or pneumothorax or acute disease process. Radiology in agreement. Discharge Plan Triage Chief Complaint: General Illness ED Midlevel Provider: Ron Alan ED Provider: Rafita Fraser Dx/Rx/DC Orders Clinical Impression: COVID-19 Instructions: Coronavirus Disease 2019 (COVID-19): Caring for Yourself or Others Prescriptions: No Action montelukast 10 mg tablet 10 mg PO QPM coenzyme Q10 100 mg capsule 100 mg PO DAILY ezetimibe [Zetia] 10 mg tablet 10 mg PO DAILY tamoxifen 20 mg tablet 20 mg PO DAILY Hold Instructions: X2 weeks to r/o side effects potassium chloride 10 mEq tablet extended release 20 meq PO BID doxycycline monohydrate 50 mg capsule 50 mg PO DAILY PRN (Reason: Skin) clobetasol 0.05 % gel 1 applic topical DAILY PRN (Reason: Skin Cleansing) nitroglycerin 0.4 mg tablet, sublingual 0.4 mg SUBLINGUAL Q5M PRN (Reason: Chest Pain) Qty: 25 3RF Patient Comments: CHEST PAIN magnesium oxide 500 mg tablet 500 mg PO DAILY calcium citrate-vitamin D3 315 mg-6.25 mcg (250 unit) tablet 2 tab PO DAILY ketoconazole 2 % shampoo topical lisinopril 5 mg tablet 5 mg PO BID Patient Comments: BP lactulose 10 gram/15 mL solution 15 ml PO DAILY PRN (DME) Handicap Placard See Rx Instructions Qty: 1 0RF Dose Instruction: As directed Rx Instructions: As directed; Good from 10/06/2023 to 10/06/2028 L.acidoph, paracasei,B. lactis 1 EACH capsule 1 ea PO QHS Patient Comments: GI HEALTH metformin 500 mg tablet,ER erlin.retention 24 hr 1,000 mg PO BID Patient Comments: 1000mg at dinner; diabetes cholecalciferol (vitamin D3) 2,000 unit capsule 4,000 unit PO DAILY Patient Comments: SUPPLEMENT omeprazole 40 mg Capsule,Delayed Release(Dr/Ec) 40 mg PO DAILY Creon 36,000-114,000- 180,000 unit capsule,delayed release(DR/EC) See Rx Instructions PO .COMPLEX Qty: 56 0RF Rx Instructions: take 1-2 with snacks and 2-3 with meals metoprolol tartrate 25 mg tablet 25 mg PO BID Qty: 180 3RF Primary Care Provider: Clifton Jennings Referrals: Clifton Jennings MD [Primary Care Provider] - Activity Restrictions/Additional Instructions: Please follow-up with your PCP. Use ibuprofen, Tylenol. Ensure that you maintain hydration. Disposition Disposition: Home, Self Care Discharge Date/Time: 09/11/23 15:59
[2023-09-11] MEDS: Acetaminophen 500 MG Tablet 1000 MG PO (14:59)
== END 2023-09-11 15:59 | disposition home or self-care (01) ==
PROVIDERS: Emergency Provider Emergency Medicine; PCP Family Medicine; Visit Provider Emergency Medicine
DX: U07.1 COVID-19 (principal); E11.9 Type 2 diabetes mellitus without complications; I25.10 Atherosclerotic heart disease of native coronary artery without angina pectoris; Z86.16 Personal history of COVID-19; Z86.73 Personal history of transient ischemic attack (TIA), and cerebral infarction without residual deficits; Z95.5 Presence of coronary angioplasty implant and graft; Z87.891 Personal history of nicotine dependence
CPT/HCPCS: 71046; 87428; 99282

== ENCOUNTER → 2023-10-01 | Outpatient (CLI) | payer MEDICARE, SELFPAY ==
[2017-01-04 15:17] VITALS: BMI 30.1
--- NOTE | 2023-10-03 12:58 | STRESSREP ---
Stress Test Report Exercise myocardial perfusion stress test. 68-year-old male with a history of chest pain Stress protocol: Resting EKG demonstrates normal sinus rhythm with a rate of 60 bpm resting blood pressure is 154/90 mmHg. The patient exercised according to the regular [place] protocol for a total duration of 6 minutes attaining a maximum heart rate of 133 bpm which was 86% of maximum predicted heart rate; the maximum workload was 7 metabolic equivalents. At rest there were no ST or T wave changes noted to suggest ischemia and at peak exercise upsloping ST changes only were noted which did not meet the criteria for ischemia. No clinical angina was noted the test was terminated due to the target heart rate being achieved/fatigue. The peak blood pressure was 178/90 mmHg. Rate-pressure product was 22,300. Myocardial perfusion protocol. 12.0 mCi of technetium 99m sestamibi was injected at rest. The patient exercised according to regular Teofilo protocol for total duration of 6 minutes and at peak exercise 36.0 mCi of technetium 99m sestamibi was injected stress images were obtained stress and rest images were reconstructed in comparing the short axis vertical long and horizontal long axis. Gated images were also obtained. Perfusion SPECT analysis: Review of the stress images demonstrate normal uptake of tracer noted in all areas of the myocardium. The resting images similarly demonstrate normal uptake of tracer noted in all areas of the myocardium. No areas of reversibility are noted to suggest ischemia no previous infarct was noted. Gated SPECT analysis: The gated ejection fraction is 74%. Conclusion: Normal exercise myocardial perfusion stress test at a moderate workload Preserved ejection fraction.
== END | disposition home or self-care (01) ==
LOC: CVS 05:42
PROVIDERS: PCP Family Medicine; Referring Provider Nurse Practitioner Family; Visit Provider Nurse Practitioner Family
DX: R07.9 Chest pain, unspecified (principal); I25.10 Atherosclerotic heart disease of native coronary artery without angina pectoris; R00.2 Palpitations; Z95.5 Presence of coronary angioplasty implant and graft
CPT/HCPCS: 78452; 93017; A9500; A4216

== ENCOUNTER 2023-12-08 13:54 | Outpatient (CLI) | payer MEDICARE, SELFPAY ==
[2017-01-04 15:17] VITALS: BMI 30.1
[2023-12-08 15:16] LABS: Amylase 59 U/L (25-115); Lipase 124 U/L (13-75)
[2023-12-10 04:07] LABS: Carbohydrate AG 19-9 38 U/mL (0-35)
== END 2023-12-08 23:59 | disposition home or self-care (01) ==
LOC: LAB 13:56
PROVIDERS: PCP Family Medicine; Referring Provider Internal Medicine Gastroenterology; Visit Provider Internal Medicine Gastroenterology
DX: K29.60 Other gastritis without bleeding (principal); R74.8 Abnormal levels of other serum enzymes; R19.7 Diarrhea, unspecified; R97.8 Other abnormal tumor markers
CPT/HCPCS: 36415; 82150; 83690; 86301

== ENCOUNTER 2023-12-22 13:21 | Emergency (ER) | payer MEDICARE, SELFPAY ==
[2017-01-04 15:17] VITALS: BMI 30.1
[2023-12-22 13:22] VITALS: BP 105/78; PULSE 97; RESP 16; TEMP 37.4; O2SAT 99; BMI 24.8
--- NOTE | 2023-12-22 13:57 | EX.ED.DYSGE1 ---
HPI History of Present Illness Chief Complaint: General Illness Informant: patient Onset/Context/Timing Onset: Days (3 days) Context: Gradual Onset Narrative Narrative: Patient presents with cough, congestion, fever over the past 3 days. She states he is not really bringing up much sputum. Her temperature has been between 102 and 103. She is been taking Tylenol and ibuprofen when needed. She reports some mild diarrhea but no nausea or vomiting. [facility] Medical History Anxiety Arthritis Atherosclerotic heart disease of [place] coronary artery without angina pectoris Breast cancer, left Cardiology follow-up encounter Cardiovascular stress test abnormal Chest pain Colon polyp COVID-19 (~10/2022) CPAP (continuous positive airway pressure) dependence Dietary restriction Discoloration of skin Easy bruising Encounter for long-term (current) use of other medications Epigastric pain Excessive bleeding Former smoker Gastric reflux Heart palpitations History of pain when walking History of TIA (transient ischemic attack) Hx of cardiovascular stress test (~09/13/18) Hx of echocardiogram (~06/30/17) Hx of gastritis IBS (irritable bowel syndrome) Injury of head and neck Leg cramps Loss of hearing [place]ieres disease Mixed hyperlipidemia Nausea Presence of stent in coronary artery (~01/05/17) Psoriasis Rosacea Shortness of breath on exertion Vitamin D deficiency Wears glasses Home Medications L.acidoph, paracasei,B. lactis 10 billion cell capsule 1 ea PO QHS 09/23/16 [History Last Taken 06/28/17] cholecalciferol (vitamin D3) 50 mcg (2,000 unit) capsule 4,000 unit PO DAILY 08/22/18 [History Last Taken Unknown] montelukast 10 mg tablet 10 mg PO QPM 08/22/18 [History Last Taken Unknown] coenzyme Q10 100 mg capsule 100 mg PO DAILY 08/23/19 [History Last Taken Unknown] metformin 500 mg 24 hr tablet,extended release (gastric retention) 1,000 mg PO BID 11/24/21 [History Last Taken Unknown] potassium chloride 10 mEq tablet,extended release 20 meq PO BID 11/24/21 [History Last Taken Unknown] tamoxifen 20 mg tablet 20 mg PO DAILY 11/24/21 [History Last Taken Unknown] doxycycline monohydrate 50 mg capsule 50 mg PO DAILY PRN Skin 05/28/22 [History Last Taken Unknown] nitroglycerin 0.4 mg sublingual tablet 0.4 mg sublingual Q5M PRN Chest Pain #25 tabs 05/28/22 [Rx Last Taken Unknown] clobetasol 0.05 % topical gel 1 applic topical DAILY PRN Skin Cleansing 09/03/22 [History Last Taken Unknown] magnesium oxide 500 mg PO DAILY 09/03/22 [History Last Taken Unknown] omeprazole 40 mg capsule,delayed release 40 mg PO DAILY 11/30/22 [History Last Taken Unknown] rzhguk-utpuqejl-cmgdcgr 36,000-114,000-180,000 unit capsule,delay rel (Creon) See Rx Instructions PO .COMPLEX #56 caps 03/04/23 [Rx Last Taken Unknown] metoprolol tartrate 25 mg tablet 25 mg PO BID #180 tabs 03/15/23 [Rx Last Taken Unknown] Handicap Placard #1 ea 08/30/23 [Rx Last Taken Unknown] calcium citrate 315 mg calcium-vitamin D3 6.25 mcg (250 unit) tablet 2 tab PO DAILY 08/30/23 [History Last Taken Unknown] ezetimibe 10 mg tablet (Zetia) 10 mg PO DAILY 08/30/23 [History Last Taken Unknown] ketoconazole 2 % shampoo 1 applic topical QODAY 08/30/23 [History Last Taken Unknown] lisinopril 5 mg tablet 30 mg PO BID This is a dose increase 08/30/23 [History Last Taken Unknown] lactulose 10 gram/15 mL oral solution 15 ml PO DAILY PRN constipation #473 mL 11/03/23 [Rx Last Taken Unknown] Allergy/AdvReac Type Severity Reaction Status Date / Time lovastatin Allergy Intermediate Other Verified 12/22/23 13:22 rosuvastatin [From Crestor] Allergy Intermediate Other Verified 12/22/23 13:22 ticagrelor [From Brilinta] Allergy Intermediate Shortness Verified 12/22/23 13:22 of breath hydrocodone Allergy Hives Verified 12/22/23 13:22 cephalexin monohydrate AdvReac Other Verified 12/22/23 13:22 [From Keflex] pravastatin AdvReac myalgias Verified 12/22/23 13:22 Family History Mother Cancer pancreatic cancer Father , MD age 20's (premature CAD), 3 vessel CABG, hyperlipidemia, CHf Myocardial infarction CAD (coronary artery disease) Brother Cancer lung cancer Surgical History Ductal carcinoma in situ (DCIS) of left breast History of bunionectomy of left great toe History of cardiac catheterization (~10/12/18) History of carpal tunnel release of both wrists History of section History of cholecystectomy History of coronary artery stent placement (~12/30/16) History of detached retina repair (~04/2023) History of hysterectomy History of lumpectomy of left breast History of parathyroidectomy Hx of foot surgery Hx of release of tendon (~01/13/23) Status post excision of lipoma (~11/2018) Status post lumbar spine operative procedure for decompression of spinal cord Status post trigger finger release Social History household members: spouse housing: house current occupational status: employed Smoking Status: Former smoker quit date: 11/08/87 pack-years: 6 how long ago did patient quit smokin second hand exposure: Yes alcohol intake: never substance use type: does not use caffeine: Yes Type: coffee Number of servings: 2 what type of physical activity do you participate in: none seatbelt use: always do you feel safe at home: Yes ROS ROS ED Constitutional Constitutional ED: Reports fever(s) Eyes Eyes: Denies change in vision or discharge from eye(s) ENT ENT ED: Denies discharge from eye(s), rhinorrhea or sore throat Cardiovascular Cardiovascular: Denies chest pain or palpitations Respiratory/Chest Respiratory/Chest: Reports cough; Denies sputum Gastrointestinal Gastrointestinal: Reports diarrhea; Denies abdominal pain, nausea or vomiting Genitourinary Genitourinary ED: Denies dysuria Musculoskeletal Musculoskeletal: Denies back pain or extremity pain Integumentary Denies Abrasions or rash Neurologic Neurologic: Denies headache(s) or weakness Psychiatric Psychiatric: Denies anxiety or depression Allergic/Immunologic Allergic/Immunologic ED: Denies lip swelling or urticaria EXAM Physical Exam Const Vital Signs: 12/22/23 13:22 12/22/23 13:32 Temperature 99.3 F H Temperature Source Temporal Pulse Rate 97 Respiratory Rate 16 Respiratory Effort Normal Respiratory Pattern Normal Blood Pressure 105/78 Blood Pressure Mean 87 Pulse Ox 99 Oxygen Delivery Method Room Air Positive well nourished and well developed General Appearance ED: well developed HEENT Reports moist mucous membranes Eyes EOMs intact bilaterally Chest Wall inspection of chest normal and palpation of chest normal Resp normal respiratory effort and clear to auscultation bilaterally Cardio regular rate and regular rhythm GI non-tender Palpation: soft Extremity normal to inspection Neuro oriented x3 and no sensory deficits noted Motor Exam: strength 5/5 throughout Psych mental status grossly normal Skin no rashes or lesions noted MDM MDM MDM Narrative Medical decision making narrative: Swab for COVID, influenza, and RSV will be obtained. Chest x-ray obtained to evaluate for acute lung pathology, cardiac size, or mediastinal abnormality. Radiography Diagnostic Testing: Clinical Impression(s) from Imaging Studies Chest X-Ray 12/22/23 14:16 IMPRESSION: No acute abnormality is seen. Electronically Signed: Reji Bella MD at 14:33 EST , Treatment and Re-Evaluation :: Chest x-ray per my interpretation was no evidence of focal infiltrate. Radiology interpretation reviewed and agrees. COVID and RSV swab is negative. Patient's flu swab is positive for influenza A. Test results discussed with patient at bedside. We discussed Tamiflu. She would prefer just to take Tylenol and ibuprofen and continue supportive care. Return instructions provided. Discharge Plan Triage Chief Complaint: General Illness ED Provider: Caro Pedro Dx/Rx/DC Orders Clinical Impression: Influenza A Instructions: ED Influenza (Adult) Prescriptions: No Action montelukast 10 mg tablet 10 mg PO QPM coenzyme Q10 100 mg capsule 100 mg PO DAILY ezetimibe [Zetia] 10 mg tablet 10 mg PO DAILY tamoxifen 20 mg tablet 20 mg PO DAILY Hold Instructions: X2 weeks to r/o side effects potassium chloride 10 mEq tablet extended release 20 meq PO BID doxycycline monohydrate 50 mg capsule 50 mg PO DAILY PRN (Reason: Skin) clobetasol 0.05 % gel 1 applic topical DAILY PRN (Reason: Skin Cleansing) nitroglycerin 0.4 mg tablet, sublingual 0.4 mg SUBLINGUAL Q5M PRN (Reason: Chest Pain) Qty: 25 3RF Patient Comments: CHEST PAIN magnesium oxide 500 mg tablet 500 mg PO DAILY calcium citrate-vitamin D3 315 mg-6.25 mcg (250 unit) tablet 2 tab PO DAILY ketoconazole 2 % shampoo 1 applic topical QODAY lisinopril 5 mg tablet 30 mg PO BID Patient Comments: BP (DME) Handicap Placard See Rx Instructions Qty: 1 0RF Dose Instruction: As directed Rx Instructions: As directed; Good from 10/06/2023 to 10/06/2028 L.acidoph, paracasei,B. lactis 1 EACH capsule 1 ea PO QHS Patient Comments: GI HEALTH metformin 500 mg tablet,ER erlin.retention 24 hr 1,000 mg PO BID Patient Comments: 1000mg at dinner; diabetes cholecalciferol (vitamin D3) 2,000 unit capsule 4,000 unit PO DAILY Patient Comments: SUPPLEMENT omeprazole 40 mg Capsule,Delayed Release(Dr/Ec) 40 mg PO DAILY Creon 36,000-114,000- 180,000 unit capsule,delayed release(DR/EC) See Rx Instructions PO .COMPLEX Qty: 56 0RF Rx Instructions: take 1-2 with snacks and 2-3 with meals metoprolol tartrate 25 mg tablet 25 mg PO BID Qty: 180 3RF lactulose 10 gram/15 mL solution 15 ml PO DAILY PRN (Reason: constipation) Qty: 473 1RF Primary Care Provider: Clifton Jennings Referrals: Clifton Jennings MD [Primary Care Provider] - 1-2 Weeks Disposition Disposition: Home, Self Care
--- NOTE | 2023-12-22 14:16 | RAD_ITS ---
STUDY: X-RAY CHEST REASON FOR EXAM: Female, 68 years old. Cough TECHNIQUE: Single AP portable view of the chest. COMPARISON: Comparison is made with prior study dated September 11, 2023. FINDINGS: The lungs are clear and expanded. There is no demonstrated pleural abnormality. Normal size heart. Normal mediastinum and [place]. Normal visualized pulmonary arteries. Normal visualized aortic arch and descending thoracic aorta. There are diffuse degenerative changes of the visualized thoracic spine. Normal visualized ribs, clavicles, and shoulders. There is no demonstrated abnormality of the visualized soft tissue structures of the upper abdomen. RAD/Chest 1 View (Portable) IMPRESSION: No acute abnormality is seen. Electronically Signed: Reji Bella MD at 14:33 EST ,
[2023-12-22 15:03] VITALS: BP 103/74; PULSE 88; RESP 16; TEMP 37.4; O2SAT 98
--- OUTSIDE RECORDS SUMMARY | 2023-12-22 17:47 | XMS RPT_ITS | CCD ---
Author Name Unknown Address [address] [place] [address] Organization [facility] Care Team Providers Care Healthcare Social Worker Name Role Phone Moni Garcia Unavailable Unavailable Yandel VAN DRIVER HELPER, Octaviano Viera Unavailable Moni Garcia Unavailable Unavailable Manda Peck Unavailable Unavailable Yee Mei Unavailable Jennifer RN, Nancy Callahan Unavailable Moni Garcia Unavailable Unavailable Jennifer ALARCON, Nancy Callahan Unavailable Jennifer ALARCON, Nancy Callahan Unavailable AGNES Paige, Blanca Myles Unavailable UnavailClifton Goetz MD Primary Care Provider Obey MONK MD, Dasantosung Unavailable Clifton Hung MD Primary Care Provider Obey MONK MD, Daesung Unavailable Clifton Hung MD Primary Care Provider Clifton Hung MD Primary Care Provider Obey MONK MD, Daesung Unavailable TEO HUTCHINS DR Admitting Unavailable TEO HUTCHINS DR Attending Unavailable TEO HUTCHINS DR Primary Care Unavailable CLIFTON HUNG MD Consulting Unavailable PROVIDER, UNKNOWN Consulting Unavailable CLIFTON HUNG Primary Care Unavailable JULIETH MARIEE Referring Unavailable JULIETH MARIEE Attending Unavailable CHERISE SIFUENTES Referring Unavailable CLIFTON HUNG Primary Care Unavailable CHERISE SIFUENTES Referring Unavailable CLIFTON HUNG Primary Care Unavailable ABHILASH, CLIFTON A Attending Unavailable ABHILASH, CLIFTON A Primary Care Unavailable ABHILASHGILDA LONGORIAREY A Referring Unavailable ABHILASHGILDA LONGORIAREY A Primary Care Unavailable SIMA DUMONT Attending Unavailable ABHILASH, CLIFTON A Primary Care Unavailable JULIETH MARIEE Referring Unavailable ABHILASHGILDA LONGORIAREY A Primary Care Unavailable JULIETH MARIEE Referring Unavailable JULIETH MARIEE Attending Unavailable ABHILASHGILDA LONGORIAREY A Primary Care Unavailable FRANCINE MADRID Attending Unavailable ABHILASH, CLIFTON A Primary Care Unavailable FRANCINE MADRID Attending Unavailable ABHILASH, CLIFTON A Primary Care Unavailable ABHILASH, CLIFTON A Primary Care Unavailable FRANCINE MADRID Attending Unavailable ABHILASHGILDA LONGORIAREY A Primary Care Unavailable ABHILASHGILDA LONGORIAREY A Primary Care Unavailable ABHILASH, CLIFTON A Primary Care Unavailable CHERISE SIFUENTES Attending Unavailable ABHILASH, CLIFTON A Primary Care Unavailable Allergies Allergy Classification Reported Allergen(s) Allergy Type Date of Onset Reaction(s) Facility (20 sources) cephalexin; Translations: [CEPHALEXIN] drug allergy 6 Other: See Comments [facility] Work Phone: (20 sources) Acetaminophen / HYDROcodone; Translations: [HYDROCODONE-ACET AMINOPHEN] Drug Allergy 6 Itching [facility] Work Phone: (20 sources) atorvastatin; Translations: [ATORVASTATIN] Drug Allergy 3 Other: See Comments [facility] Work Phone: (20 sources) Lovastatin; Translations: [LOVASTATIN] Drug Allergy 3 Other: See Comments [facility] Work Phone: (20 sources) rosuvastatin; Translations: [ROSUVASTATIN] Drug Allergy 0 Myalgia [facility] Work Phone: (20 sources) Ticagrelor; Translations: [TICAGRELOR] Drug Allergy 7 Shortness of Breath [facility] Work Phone: (1 source) Codeine Drug Allergy [facility] Repository Medications Current Medications Medication Drug Class(es) Dates Sig (Normalized) Sig (Original) amoxicillin 875 mg / clavulanate 125 mg oral tablet (2 sources) Penicillin-class Antibacterial Start: 02-09-2023 End: 02-19-2023 take 1 tablet by mouth twice daily amoxicillin-clav ulanic acid (AUGMENTIN) 875-125 mg per tablet Take 1 tablet by mouth twice daily for 10 days. 20 tablet 0 02/09/2023 02/19/2023 Active Completed/Discontinued Medications Medication Drug Class(es) Dates Sig (Normalized) Sig (Original) acetaminophen 500 mg oral tablet (20 sources) take 2 tablets by mouth every eight hours as needed acetaminophen (TYLENOL) 500 mg tablet Take 1,000 mg by mouth every 8 hours as needed. 0 Active Problems Active Problems Problem Classification Problem Date Documented Da te Episodic/Chronic Abdominal pain (5 sources) Upper abdominal pain; Translations: [Upper abdominal pain, unspecified] Episodic Allergic reactions (1 source) Vulval eczema; Translations: [Dermatitis, unspecified] Episodic Cancer of breast (20 sources) Intraductal carcinoma in situ of left breast; Translations: [Intraductal carcinoma in situ of left breast] Onset: 05-26-2021 05-26-2021 Chronic Conditions associated with dizziness or vertigo (20 sources) Meniere's disease of right inner ear; Translations: [Meniere's disease, right ear] Onset: 10-29-2017 10-29-2017 Chronic Coronary atherosclerosis and other heart disease (20 sources) Atherosclerotic heart disease of tetlin coronary artery without angina pectoris; Translations: [Coronary atherosclerosis] Onset: 01-05-2017 01-05-2017 Chronic Diabetes mellitus with complications (1 source) Disorder of nervous system due to type 2 diabetes mellitus; Translations: [Type 2 diabetes mellitus with other diabetic neurological complication] Chronic Diabetes mellitus without complication (20 sources) Type 2 diabetes mellitus without complication; Translations: [Type 2 diabetes mellitus without complications] Onset: 10-22-2016 01-05-2017 Chronic Disorders of lipid metabolism (20 sources) Hyperlipidemia; Translations: [Mixed hyperlipidemia] Onset: 05-31-2009 01-05-2017 Chronic Essential hypertension (20 sources) Hypertensive disorder; Translations: [Essential hypertension] Onset: 01-16-2016 01-05-2017 Chronic Genitourinary symptoms and ill-defined conditions (1 source) Incontinence; Translations: [Mixed incontinence] Chronic Genitourinary symptoms and ill-defined conditions (5 sources) Dysuria; Translations: [Dysuria] Onset: 11-23-2023 Episodic Immunizations and screening for infectious disease (3 sources) Vaccination needed; Translations: [Encounter for immunization] Onset: 10-26-2023 Episodic Inflammatory diseases of female pelvic organs (1 source) Bacterial vaginosis; Translations: [Acute vaginitis] Episodic Menopausal disorders (2 sources) Atrophy of vagina; Translations: [Postmenopausal atrophic vaginitis] Chronic Nausea and vomiting (2 sources) Nausea; Translations: [Nausea] Episodic Nutritional deficiencies (20 sources) Vitamin D deficiency; Translations: [Vitamin D deficiency, unspecified] Onset: 01-16-2016 01-16-2016 Chronic Osteoarthritis (20 sources) Arthritis; Translations: [Unspecified osteoarthritis, unspecified site] 11-03-2021 Chronic Other aftercare (1 source) Long-term current use of tamoxifen; Translations: [USP (current) use of selective estrogen receptor modulators (SERMs)] Episodic Other and unspecified benign neoplasm (20 sources) History of polyp of colon; Translations: [Personal history of colonic polyps] 04-10-2020 Episodic Other circulatory disease (20 sources) History of angioplasty; Translations: [Peripheral vascular angioplasty status with implants and grafts] Onset: 01-09-2017 01-09-2017 Chronic Other female genital disorders (1 source) Superficial pain on intercourse; Translations: [Superficial (introital) dyspareunia] Chronic Other female genital disorders (1 source) Pruritus of vagina; Translations: [Other specified noninflammatory disorders of vagina] Episodic Other female genital disorders (2 sources) Vaginal discharge; Translations: [Other specified noninflammatory disorders of vagina] Episodic Other gastrointestinal disorders (20 sources) Irritable bowel syndrome with diarrhea; Translations: [Irritable bowel syndrome with diarrhea] Onset: 05-26-2021 05-26-2021 Chronic Other hereditary and degenerative nervous system conditions (17 sources) Restless legs; Translations: [Restless legs syndrome] Onset: 02-22-2023 Chronic Other hereditary and degenerative nervous system conditions (1 source) Restless legs syndrome; Translations: [RLS (restless legs syndrome)] Onset: 02-22-2023 Chronic Other inflammatory condition of skin (20 sources) Rosacea; Translations: [Rosacea, unspecified] 11-03-2021 Chronic Other inflammatory condition of skin (20 sources) Psoriasis; Translations: [Psoriasis, unspecified] 07-31-2019 Chronic Other inflammatory condition of skin (20 sources) Scalp itchy; Translations: [Pruritus, unspecified] 10-29-2016 Episodic Other inflammatory condition of skin (20 sources) Pruritic scalp dermatosis; Translations: [Pruritus, unspecified] 10-29-2016 Episodic Other liver diseases (2 sources) Lesion of liver; Translations: [Liver disease, unspecified] Chronic Other lower respiratory disease (1 source) Cough; Translations: [Acute cough] Episodic Other nervous system disorders (20 sources) Narcolepsy without cataplexy ; Translations: [Narcolepsy without cataplexy] Onset: 01-16-2016 11-03-2021 Chronic Other nervous system disorders (1 source) Narcolepsy without cataplexy; Translations: [Narcolepsy without cataplexy] Onset: 11-04-2021 Chronic Other nutritional; endocrine; and metabolic disorders (20 sources) H/O: endocrine disorder; Translations: [Personal history of other endocrine, nutritional and metabolic disease] 11-03-2021 Episodic Other screening for suspected conditions (not mental disorders or infectious disease) (2 sources) CT of chest abnormal; Translations: [Abnormal findings on diagnostic imaging of other specified body structures] Chronic Other skin disorders (20 sources) Female pattern alopecia; Translations: [Other specified nonscarring hair loss] 01-16-2016 Episodic Other skin disorders (1 source) Ingrowing toenail; Translations: [Ingrowing nail] Episodic Other upper respiratory disease (20 sources) Seasonal allergy; Translations: [Other seasonal allergic rhinitis] 10-29-2017 Chronic Other upper respiratory disease (1 source) Lesion of nose; Translations: [Other specified disorders of nose and nasal sinuses] Episodic Other upper respiratory infections (1 source) Bacterial sinusitis; Translations: [Chronic sinusitis, unspecified] Chronic Other upper respiratory infections (3 sources) Acute upper respiratory infection; Translations: [Acute upper respiratory infection, unspecified] Episodic Prolapse of female genital organs (1 source) Midline cystocele; Translations: [Cystocele, midline] Chronic Residual codes; unclassified (20 sources) Obstructive sleep apnea syndrome; Translations: [Obstructive sleep apnea (adult) (pediatric)] 11-03-2021 Chronic Residual codes; unclassified (1 source) Obstructive sleep apnea (adult) (pediatric); Translations: [Obstructive sleep apnea on CPAP] Onset: 11-03-2021 Chronic Screening and history of mental health and substance abuse codes (20 sources) H/O: depression; Translations: [Personal history of other mental and behavioral disorders] 11-03-2021 Episodic Spondylosis; intervertebral disc disorders; other back problems (1 source) Backache; Translations: [Dorsalgia, unspecified] Episodic Unclassified (5 sources) Long-term drug therapy; Translations: [Other terminal operations manager (current) drug therapy] Onset: 01-20-2017 01-20-2017 Unclassified (1 source) Finding of body mass index; Translations: [Body mass index (BMI) 28.0-28.9, adult] Onset: 01-20-2017 01-20-2017 Past or Other Problems Problem Classification Problem Date Documented Da te Episodic/Chronic Administrative/social admission (12 sources) Advance directive discussed with patient; Translations: [Other specified counseling] Onset: 04-08-2023 Episodic Coronary atherosclerosis and other heart disease (20 sources) Presence of coronary angioplasty implant and graft; Translations: [Post percutaneous transluminal coronary angioplasty] Onset: 01-05-2017 03-31-2017 Episodic Other aftercare (6 sources) Other detention (current) drug therapy; Translations: [Other terminal operations manager (current) drug therapy] Onset: 01-20-2017 01-20-2017 Episodic Other circulatory disease (20 sources) History of transient ischemic attack; Translations: [Personal history of transient ischemic attack (TIA), and cerebral infarction without residual deficits] Onset: 10-29-2017 08-02-2018 Episodic Other connective tissue disease (20 sources) Synovial cyst of left popliteal space; Translations: [Synovial cyst of popliteal space [Garibay], left knee] Onset: 03-02-2018 03-02-2018 Episodic Other liver diseases (1 source) Abnormal levels of other serum enzymes; Translations: [Acid phosphatase elevated] Onset: 04-02-2023 Episodic Other lower respiratory disease (11 sources) Dyspnea; Translations: [Dyspnea, unspecified] Onset: 03-31-2017 03-31-2017 Episodic Other nutritional; endocrine; and metabolic disorders (10 sources) Body mass index (BMI) 28.0-28.9, adult; Translations: [Body mass index (BMI) 28.0-28.9, adult] Onset: 01-20-2017 01-20-2017 Episodic Other screening for suspected conditions (not mental disorders or infectious disease) (20 sources) Patient encounter status; Translations: [Encounter for screening for malignant neoplasm of colon] Onset: 01-16-2016 01-16-2016 Episodic Other skin disorders (20 sources) Foot callus; Translations: [Corns and callosities] Onset: 05-26-2021 05-26-2021 Episodic Other skin disorders (20 sources) Disorder of skin; Translations: [Other skin changes] Onset: 09-26-2021 09-26-2021 Episodic Pancreatic disorders (not diabetes) (12 sources) Pancreatic insufficiency; Translations: [Other specified diseases of pancreas] Onset: 04-08-2023 Episodic Residual codes; unclassified (11 sources) Active living will ; Translations: [Other specified health status] Onset: 04-08-2023 04-08-2023 Episodic Unclassified (14 sources) Placement of stent in coronary artery ; Translations: [Presence of coronary angioplasty implant and graft] Onset: 01-14-2017 Resolved: 03-31-2017 03-31-2017 Results Test Name Value Interpretation Reference Range Facil it Vital Signs Date Time Vital Sign Value Performing Clinician Facility 10-08-2023 08:59-0500 Body weight 64.86 kg Francine Madrid APRN.CNP Work Phone: [facility] 10-08-2023 08:59-0500 Diastolic blood pressure 85 mm[Hg] Francine Madrid APRN.CNP Work Phone: [facility] 10-08-2023 08:59-0500 Heart rate 62 /min Francine Madrid APRN.CNP Work Phone: [facility] 10-08-2023 08:59-0500 Respiratory rate 14 /min Francine Madrid APRN.CNP Work Phone: [facility] 10-08-2023 08:59-0500 Systolic blood pressure 166 mm[Hg] Francine Madrid APRN.CNP Work Phone: [facility] 07-23-2023 11:06-0400 Body weight 63.14 kg Sima Dumont APRN.CNP Work Phone: [facility] 07-23-2023 11:06-0400 Diastolic blood pressure 78 mm[Hg] Sima Dumont DIRECTOR EMERGENCY DEPARTMENT.ADVICE LINE RN Work Phone: [facility] 07-23-2023 11:06-0400 Systolic blood pressure 120 mm[Hg] Sima Dumont DIRECTOR EMERGENCY DEPARTMENT.ADVICE LINE RN Work Phone: [facility] 04-08-2023 13:05-0400 Body height 157.5 cm Clifton Hung MD Work Phone: [facility] 04-08-2023 13:05-0400 Body weight 60.33 kg Clifton Hung MD Work Phone: [facility] 04-08-2023 13:05-0400 Diastolic blood pressure 84 mm[Hg] Clifton Hung MD Work Phone: [facility] 04-08-2023 13:05-0400 Heart rate 70 /min Clifton Hung MD Work Phone: [facility] 04-08-2023 13:05-0400 Respiratory rate 16 /min Clifton Hung MD Work Phone: [facility] 04-08-2023 13:05-0400 Systolic blood pressure 128 mm[Hg] Clifton Hung MD Work Phone: [facility] 02-26-2023 09:52-0400 Body height 158 cm 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 DIRECTOR EMERGENCY DEPARTMENT.ADVICE LINE RN Work Phone: [facility] 02-26-2023 09:52-0400 Body temperature 97.11 [degF] Lynn Mariee DIRECTOR EMERGENCY DEPARTMENT.ADVICE LINE RN Work Phone: [facility] 02-26-2023 09:52-0400 Body weight 61.69 kg 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 DIRECTOR EMERGENCY DEPARTMENT.ADVICE LINE RN Work Phone: [facility] 02-26-2023 09:52-0400 Diastolic blood pressure 70 mm[Hg] 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 DIRECTOR EMERGENCY DEPARTMENT.ADVICE LINE RN Work Phone: [facility] 02-26-2023 09:52-0400 Heart rate 82 /min Lynn Mariee DIRECTOR EMERGENCY DEPARTMENT.ADVICE LINE RN Work Phone: [facility] 02-26-2023 09:52-0400 SaO2% (BldA) [Mass fraction] 100 % 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 DIRECTOR EMERGENCY DEPARTMENT.ADVICE LINE RN Work Phone: [facility] 02-26-2023 09:52-0400 Systolic blood pressure 132 mm[Hg] 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 DIRECTOR EMERGENCY DEPARTMENT.ADVICE LINE RN Work Phone: [facility] 02-09-2023 07:43-0400 Body temperature 98.71 [degF] Cherise Sifuentes PA-C Work Phone: [facility] 02-09-2023 07:43-0400 Body weight 61.69 kg Cherise Sifuentes PA-C Work Phone: [facility] 02-09-2023 07:43-0400 Diastolic blood pressure 78 mm[Hg] Cherise Sifuentes PA-C Work Phone: [facility] 02-09-2023 07:43-0400 Heart rate 80 /min Cherise Sifuentes PA-C Work Phone: [facility] 02-09-2023 07:43-0400 Respiratory rate 18 /min Cheriseny Sifuentes PA-C Work Phone: [facility] 02-09-2023 07:43-0400 Systolic blood pressure 122 mm[Hg] Cherise Sifuentes PA-C Work Phone: [facility] 02-05-2023 09:19-0400 Body temperature 98.91 [degF] Lori Barriga DIRECTOR EMERGENCY DEPARTMENT.ADVICE LINE RN Work Phone: [facility] 02-05-2023 09:19-0400 Body weight 63.23 kg Lori Barriga DIRECTOR EMERGENCY DEPARTMENT.ADVICE LINE RN Work Phone: [facility] 02-05-2023 09:19-0400 Diastolic blood pressure 72 mm[Hg] Lori Nithya DIRECTOR EMERGENCY DEPARTMENT.ADVICE LINE RN Work Phone: [facility] 02-05-2023 09:19-0400 Heart rate 92 /min Lori Nithya DIRECTOR EMERGENCY DEPARTMENT.ADVICE LINE RN Work Phone: [facility] 02-05-2023 09:19-0400 Respiratory rate 18 /min Lori Barriga APRN.ADVICE LINE RN Work Phone: [facility] 02-05-2023 09:19-0400 SaO2% (BldA) [Mass fraction] 98 % Lori Barriga APRN.ADVICE LINE RN Work Phone: [facility] 02-05-2023 09:19-0400 Systolic blood pressure 112 mm[Hg] Lori Barriga APRN.ADVICE LINE RN Work Phone: [facility] 12-09-2022 07:04-0500 Body weight 66.68 kg Sima Dumont APRN.ADVICE LINE RN Work Phone: [facility] 12-09-2022 07:04-0500 Diastolic blood pressure 62 mm[Hg] Sima Dumont APRN.ADVICE LINE RN Work Phone: [facility] 12-09-2022 07:04-0500 Systolic blood pressure 110 mm[Hg] Sima Dumont APRN.ADVICE LINE RN Work Phone: [facility] 11-14-2022 13:11-0500 Body temperature 98.71 [degF] Shaneka Lopez APRN.ADVICE LINE RN Work Phone: [facility] 11-14-2022 13:11-0500 Body weight 68.49 kg Shaneka Lopez APRN.ADVICE LINE RN Work Phone: [facility] 11-14-2022 13:11-0500 Diastolic blood pressure 82 mm[Hg] Shaneka Lopez APRN.ADVICE LINE RN Work Phone: [facility] 11-14-2022 13:11-0500 Heart rate 77 /min Shaneka Lopez APRN.ADVICE LINE RN Work Phone: [facility] 11-14-2022 13:11-0500 Respiratory rate 16 /min Shaneka Lopez APRN.ADVICE LINE RN Work Phone: [facility] 11-14-2022 13:11-0500 SaO2% (BldA) [Mass fraction] 98 % Shaneka Lopez APRN.ADVICE LINE RN Work Phone: [facility] 11-14-2022 13:11-0500 Systolic blood pressure 138 mm[Hg] Shaneka Lopez APRN.ADVICE LINE RN Work Phone: [facility] 11-02-2022 13:16-0500 Body temperature 100.6 [degF] Shaneka Lopez APRN.ADVICE LINE RN Work Phone: [facility] 11-02-2022 13:16-0500 Body weight 67.59 kg Shaneka Lopez APRN.ADVICE LINE RN Work Phone: [facility] 11-02-2022 13:16-0500 Diastolic blood pressure 84 mm[Hg] Shaneka Lopez APRN.ADVICE LINE RN Work Phone: [facility] 11-02-2022 13:16-0500 Heart rate 92 /min Shaneka Lopez APRN.ADVICE LINE RN Work Phone: [facility] 11-02-2022 13:16-0500 Respiratory rate 18 /min Shaneka Lopez APRN.ADVICE LINE RN Work Phone: [facility] 11-02-2022 13:16-0500 SaO2% (BldA) [Mass fraction] 96 % Shaneka Lopez APRN.ADVICE LINE RN Work Phone: [facility] 11-02-2022 13:16-0500 Systolic blood pressure 132 mm[Hg] Shaneka Lopez APRN.ADVICE LINE RN Work Phone: [facility] 10-05-2022 10:25-0500 Body temperature 97.11 [degF] Cherise MAYS-C Work Phone: [facility] 10-05-2022 10:25-0500 Body weight 67.13 kg Cherise MAYS-C Work Phone: [facility] 10-05-2022 10:25-0500 Diastolic blood pressure 80 mm[Hg] Cherise MAYS-C Work Phone: [facility] 10-05-2022 10:25-0500 Heart rate 72 /min Cherise MAYS-C Work Phone: [facility] 10-05-2022 10:25-0500 Respiratory rate 16 /min Cherise Sifuentes PA-C Work Phone: [facility] 10-05-2022 10:25-0500 Systolic blood pressure 110 mm[Hg] Cherise Sifuentes PA-C Work Phone: [facility] 09-03-2022 14:42-0400 Body weight 67.59 kg Clifton Hung MD Work Phone: [facility] 09-03-2022 14:42-0400 Diastolic blood pressure 76 mm[Hg] Clifton Hung MD Work Phone: [facility] 09-03-2022 14:42-0400 Heart rate 84 /min Clifton Hung MD Work Phone: [facility] 09-03-2022 14:42-0400 SaO2% (BldA) [Mass fraction] 96 % Clifton Hung MD Work Phone: [facility] 09-03-2022 14:42-0400 Systolic blood pressure 120 mm[Hg] Clifton Hung MD Work Phone: [facility] 08-28-2022 10:22-0400 Body weight 66.68 kg Sima Dumont APRN.ADVICE LINE RN Work Phone: [facility] 08-28-2022 10:22-0400 Diastolic blood pressure 70 mm[Hg] Sima Dumont APRN.ADVICE LINE RN Work Phone: [facility] 08-28-2022 10:22-0400 Systolic blood pressure 98 mm[Hg] Sima Dumont APRN.ADVICE LINE RN Work Phone: [facility] 08-28-2022 08:23-0400 Body height 161 cm 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 DIRECTOR EMERGENCY DEPARTMENT.ADVICE LINE RN Work Phone: [facility] 08-28-2022 08:23-0400 Body temperature 96.8 [degF] 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 DIRECTOR EMERGENCY DEPARTMENT.ADVICE LINE RN Work Phone: [facility] 08-28-2022 08:23-0400 Body weight 67.13 kg 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 DIRECTOR EMERGENCY DEPARTMENT.ADVICE LINE RN Work Phone: [facility] 08-28-2022 08:23-0400 Diastolic blood pressure 76 mm[Hg] Julieth Russellenter DIRECTOR EMERGENCY DEPARTMENT.ADVICE LINE RN Work Phone: [facility] 08-28-2022 08:23-0400 Heart rate 92 /min 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 DIRECTOR EMERGENCY DEPARTMENT.ADVICE LINE RN Work Phone: [facility] 08-28-2022 08:23-0400 Systolic blood pressure 115 mm[Hg] 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 DIRECTOR EMERGENCY DEPARTMENT.ADVICE LINE RN Work Phone: [facility] 07-09-2022 07:50-0400 Body weight 68.04 kg Sima Dumont DIRECTOR EMERGENCY DEPARTMENT.ADVICE LINE RN Work Phone: [facility] 07-09-2022 07:50-0400 Diastolic blood pressure 68 mm[Hg] Sima Dumont DIRECTOR EMERGENCY DEPARTMENT.ADVICE LINE RN Work Phone: [facility] 07-09-2022 07:50-0400 Systolic blood pressure 118 mm[Hg] Sima Avendanohrie DIRECTOR EMERGENCY DEPARTMENT.ADVICE LINE RN Work Phone: [facility] 06-30-2022 12:34-0400 Body temperature 97.39 [degF] Martha Athy PA-C Work Phone: [facility] 06-30-2022 12:34-0400 Body weight 68.13 kg Martha Athy PA-C Work Phone: [facility] 06-30-2022 12:34-0400 Diastolic blood pressure 78 mm[Hg] Martha Athy PA-C Work Phone: [facility] 06-30-2022 12:34-0400 Heart rate 90 /min Martha Athy PA-C Work Phone: [facility] 06-30-2022 12:34-0400 Respiratory rate 18 /min Martha Athy PA-C Work Phone: [facility] 06-30-2022 12:34-0400 SaO2% (BldA) [Mass fraction] 99 % Martha Athy PA-C Work Phone: [facility] [place] 06-30-2022 12:34-0400 Systolic blood pressure 124 mm[Hg] Martha Montoya PA-C Work Phone: [facility] 02-25-2022 09:57-0400 Body temperature 97.39 [degF] 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 DIRECTOR EMERGENCY DEPARTMENT.ADVICE LINE RN Work Phone: [facility] [place] 02-25-2022 09:57-0400 Body weight 71.22 kg Lynn Mariee DIRECTOR EMERGENCY DEPARTMENT.ADVICE LINE RN Work Phone: [facility] [place] 02-25-2022 09:57-0400 Diastolic blood pressure 70 mm[Hg] 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 DIRECTOR EMERGENCY DEPARTMENT.ADVICE LINE RN Work Phone: [facility] [place] 02-25-2022 09:57-0400 Heart rate 74 /min Lynn Mariee DIRECTOR EMERGENCY DEPARTMENT.ADVICE LINE RN Work Phone: [facility] [place] 02-25-2022 09:57-0400 Systolic blood pressure 114 mm[Hg] Lynn Mariee DIRECTOR EMERGENCY DEPARTMENT.ADVICE LINE RN Work Phone: [facility] [place] 07-22-2017 16:09-0400 Heart rate 60 /min [facility] Work Phone: 07-22-2017 15:47-0400 BMI (Body Mass Index) 28.16 kg/m2 [facility] Work Phone: 07-22-2017 15:47-0400 BP Diastolic 68 mm[Hg] Marianotalyandy [facility] Work Phone: 07-22-2017 15:47-0400 BP Systolic 118 mm[Hg] [facility] Work Phone: 07-22-2017 15:47-0400 Height 160.02 cm [facility] Work Phone: 07-22-2017 15:47-0400 Pulse (Heart Rate) 60 /min [facility] Work Phone: 07-22-2017 15:47-0400 Respiratory Rate 16 /min Chantalle [facility] Work Phone: 07-22-2017 15:47-0400 Weight 72.12 kg [facility] Work Phone: 04-23-2017 09:44-0400 BMI (Body Mass Index) 28.16 kg/m2 Manda [facility] Work Phone: 04-23-2017 09:44-0400 BP Diastolic 68 mm[Hg] [facility] Work Phone: 04-23-2017 09:44-0400 BP Systolic 118 mm[Hg] [facility] Work Phone: 04-23-2017 09:44-0400 Height 160.02 cm [facility] Work Phone: 04-23-2017 09:44-0400 Pulse (Heart Rate) 72 /min [facility] Work Phone: 04-23-2017 09:44-0400 Respiratory Rate 16 /min [facility] Work Phone: 04-23-2017 09:44-0400 Weight 72.12 kg M[facility] Work Phone: 01-20-2017 11:03-0400 Heart rate 72 /min Blanca Paige RN [facility] Work Phone: 01-20-2017 10:34-0400 BMI (Body Mass Index) 28.27 kg/m2 [facility] Work Phone: 01-20-2017 10:34-0400 Body weight 72.39 kg [facility] Work Phone: 01-20-2017 10:34-0400 BP Diastolic 64 mm[Hg] [facility] Work Phone: 01-20-2017 10:34-0400 BP Systolic 112 mm[Hg] [facility] Work Phone: 01-20-2017 10:34-0400 Height 160.02 cm [facility] Work Phone: 01-20-2017 10:34-0400 Pulse (Heart Rate) 72 /min [facility] Work Phone: 01-20-2017 10:34-0400 Pulse Oximetry 98 % [facility] Work Phone: 01-20-2017 10:34-0400 Respiratory Rate 17 /min [facility] Work Phone: 01-20-2017 10:34-0400 Weight 72.39 kg Nancy [facility] Work Phone: Encounters Encounter Date Encounter Type Care Provider Facility Start: 12-10-2023 Chart abstracting Clifton romero MD Work Phone: [facility] Procedures Date Procedure Procedure Detail Performing Clinician Start: 07-23-2023 Urnls dip stick/tablet rgnt auto w/o microscopy Sima Dumont DIRECTOR EMERGENCY DEPARTMENT.ADVICE LINE RN Work Phone: Start: 02-24-2023 End: 02-24-2023 Mammography 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 DIRECTOR EMERGENCY DEPARTMENT.ADVICE LINE RN Work Phone: Start: 11-25-2022 Ct abdomen & pelvis w/contrast material 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 DIRECTOR EMERGENCY DEPARTMENT.ADVICE LINE RN Work Phone: Start: 11-14-2022 STREP A MOLECULAR (POC) Shaneka Lopez DIRECTOR EMERGENCY DEPARTMENT.ADVICE LINE RN Work Phone: Start: 11-02-2022 COVID WITH FLUA+B, ROUTINE Shanekaadrian graham DIRECTOR EMERGENCY DEPARTMENT.ADVICE LINE RN Work Phone: Start: 10-28-2022 GUILLERMINA DIAG W ANGELA LEFT 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 DIRECTOR EMERGENCY DEPARTMENT.ADVICE LINE RN Work Phone: Start: 09-09-2022 Us abdominal real time w/image limited Clifton Hung MD Work Phone: Start: 09-03-2022 INFLUENZA SEASONAL QUADRIVALENT HIGH DOSE AGE 65+ Clifton Hung MD Work Phone: Start: 07-09-2022 BACTERIAL VAGINOSIS AMPLIFICATION Sima Dumont APRN.ADVICE LINE RN Work Phone: Start: 07-09-2022 Iadna trichomonas vaginalis amplified probe tech Sima Dumont APRN.ADVICE LINE RN Work Phone: Start: 07-09-2022 Urnls dip stick/tablet rgnt auto w/o microscopy Sima Dumont APRN.ADVICE LINE RN Work Phone: Start: 02-23-2022 End: 02-23-2022 Screening mammography bi 2-view breast inc cad Alberto Georges MD Work Phone: Start: 05-12-2021 Adult depression screening assessment Cherise Sifuentes PA-C Work Phone: Start: 02-21-2021 Mammography Cherise Farmer Work Phone: Start: 08-09-2018 Colonoscopy Cherise Farmer Work Phone: Start: 07-22-2017 End: 07-22-2017 Dietary management education, guidance, and counseling Moni Garcia Start: 07-22-2017 End: 07-22-2017 Ecg routine ecg w/least 12 lds w/i&r Ron Gomez MD Start: 07-22-2017 End: 07-22-2017 Follow Up Appt 3 months Ron Gomez MD Start: 07-22-2017 End: 07-22-2017 MMM Ron Gomez MD Start: 07-22-2017 End: 07-22-2017 Electrocardiogram, complete Ron reddy MD Start: 07-22-2017 End: 07-22-2017 Follow Up Appt 3 months Ron Gomez MD Start: 07-22-2017 End: 07-22-2017 MMM Ron Gomez MD Start: 04-23-2017 End: 04-23-2017 Follow Up Appt 3 months Ron Gomez MD Start: 04-23-2017 End: 04-23-2017 MMShameka Gomez MD Start: 04-23-2017 End: 04-23-2017 Dietary management education, guidance, and counseling Nancy Rodriguez RN Start: 04-23-2017 End: 04-23-2017 Follow Up Appt 3 months Ron Gomez MD Start: 04-23-2017 End: 04-23-2017 ZULLY Gomez MD Start: 03-31-2017 End: 04-21-2017 Echocardiography Ron Gomez MD Start: 03-31-2017 End: 04-21-2017 Nuclear stress test -Lexpily Gomez MD Start: 03-31-2017 End: 04-21-2017 Echocardiography Ron Gomez MD Start: 03-31-2017 End: 04-21-2017 Nuclear stress test -Zandra Gomez MD Start: 02-19-2017 End: 04-21-2017 Lipid 1996 panel - Serum or Plasma Nancy Myers PA-C Work Phone: Start: 02-19-2017 End: 04-21-2017 Lipid panel [AGGREGATE] Nancy bains PA-C Work Phone: Start: 01-20-2017 End: 01-20-2017 Follow Up Appt 3 months Nancy bains PA-C Work Phone: Start: 01-20-2017 End: 01-20-2017 PFM Nancy Myers PA-C Work Phone: Start: 01-20-2017 End: 01-20-2017 Documentation of current medications Blanca Paige RN Start: 01-20-2017 End: 01-20-2017 Follow Up Appt 3 months Nancy bains PA-C Work Phone: Start: 01-20-2017 End: 01-20-2017 PFM Nancy Myers PA-C Work Phone: Start: 01-14-2017 End: 03-31-2017 Placement of stent in coronary artery Status post cardiac stent placement Moni Garcia Start: 01-14-2017 End: 03-31-2017 Placement of stent in coronary artery Status post cardiac stent placement Blanca Paige RN Plan of Treatment Date Care Activity Detail Author Start: 08-09-2028 Colonoscopy COLONOSCOPY [facility] [place] Start: 08-09-2028 COLORECTAL CANCER SCREENING COLORECTAL CANCER SCREENING [facility] Start: 08-09-2028 Screening for malignant neoplasm of colon [facility] Start: 11-23-2024 Annual PCP Team Chronic Disease Visit Annual PCP Team Chronic Disease Visit [facility] Start: 10-08-2024 Annual PCP Team Chronic Disease Visit Annual PCP Team Chronic Disease Visit [facility] Start: 09-29-2024 Hepatitis B surface antibody level LDL Cholesterol [facility] Start: 07-23-2024 BP Controlled (<130/80) BP Controlled (<130/80) [facility] Start: 05-23-2024 Glaucoma screening Dilated Retinal Exam [facility] Start: 05-23-2024 Hepatitis C antibody, confirmatory test DILATED RETINAL EXAM [facility] Start: 04-08-2024 3 comp foot exam completed DIABETIC FOOT EXAM [facility] Start: 04-08-2024 ANNUAL PCP TEAM CHRONIC DISEASE VISIT ANNUAL PCP TEAM CHRONIC DISEASE VISIT [facility] [place] Start: 04-08-2024 BP CONTROLLED (<130/80) BP CONTROLLED (<130/80) [facility] Start: 04-08-2024 Diabetic foot examination Diabetic Foot Exam [facility] Start: 04-02-2024 Hepatitis B screening URINE ALBUMIN:CREATININE RATIO [facility] Start: 04-02-2024 Hepatitis B surface antibody level LDL CHOLESTEROL [facility] Start: 03-29-2024 Hemoglobin A1c measurement HbA1C [facility] Start: 03-29-2024 Hemoglobin A1c/Hemoglobin.total in Blood HbA1C [facility] Start: 02-25-2024 Mammography [facility] Start: 02-25-2024 Screening for malignant neoplasm of breast Mammogram Screening [facility] Start: 02-24-2024 Urine microalbumin profile [facility] Start: 02-10-2024 ANNUAL PCP TEAM CHRONIC DISEASE VISIT ANNUAL PCP TEAM CHRONIC DISEASE VISIT [facility] Start: 02-10-2024 BP CONTROLLED (<130/80) BP CONTROLLED (<130/80) [facility] Start: 02-06-2024 BP CONTROLLED (<130/80) BP CONTROLLED (<130/80) [facility] Start: 12-09-2023 BP CONTROLLED (<130/80) BP CONTROLLED (<130/80) [facility] Start: 11-08-2023 Advance Directive Discussion Advance Directive Discussion [facility] Start: 11-08-2023 Depression Assessment Depression Assessment [facility] Start: 10-05-2023 ANNUAL PCP TEAM CHRONIC DISEASE VISIT ANNUAL PCP TEAM CHRONIC DISEASE VISIT [facility] Start: 10-03-2023 Hemoglobin A1c/Hemoglobin.total in Blood HBA1C [facility] Start: 09-24-2023 End: 11-24-2023 Hemoglobin A1c in Blood HGB A1C Lab Routine Controlled type 2 diabetes mellitus without complication, without long-term current use of insulin (HCC) Expected: 09/24/2023, Expires: 11/24/2023 [facility] Work Phone: Immunizations Immunization Date Immunization Notes Care Provider Javier lu 10-26-2023 influenza (HD-IIV4) vaccine, age 65+ yr, high dose, quadrivalent, PF (FLUZONE HIGH-DOSE) Clifton Hung MD Work Phone: [facility] 10-05-2022 pneumococcal polysaccharide vaccine, 23 valent Cherise Sifuentes PA-C Work Phone: [facility] 09-18-2022 COVID-19 booster vaccine, age 12+ yr, bivalent (MODERNA) Cherise Sifuentes PA-C Work Phone: [facility] 09-03-2022 influenza, high-dose , quadrivalent vaccine (FLUZONE HIGH DOSE QUADRIVALENT) Clifton Hung MD Work Phone: [facility] 09-01-2021 influenza, injectabl e, quadrivalent, contains preservative Cherise Sifuentes PA-C Work Phone: [facility] 12-20-2020 COVID-19 vaccine, fu ll dose (MODERNA) Cherise Sifuentes PA-C Work Phone: [facility] 11-19-2020 COVID-19 vaccine, fu ll dose (MODERNA) Cherise Sifuentes PA-C Work Phone: [facility] 10-12-2020 zoster vaccine recombinant Cherise Sifuentes PA-C Work Phone: [facility] 05-12-2020 zoster vaccine recombinant Cherise Sifuentes PA-C Work Phone: [facility] 04-12-2020 zoster vaccine recombinant Cherise Sifuentes PA-C Work Phone: [facility] 11-19-2019 COVID-19 vaccine, fu ll dose (MODERNA) Cherise Sifuentes PA-C Work Phone: [facility] [place] 09-07-2017 influenza, seasonal, injectable Cherise Sifuentes PA-C Work Phone: [facility] [place] 06-28-2017 pneumococcal polysaccharide vaccine, 23 valent Cherise Sifuentes PA-C Work Phone: [facility] [place] 09-04-2016 influenza, seasonal, injectable Cherise Sifuentes PA-C Work Phone: [facility] [place] 01-16-2016 pneumococcal conjuga te vaccine, 13 valent Cherise Sifuentes PA-C Work Phone: [facility] Work Phone: 09-19-2014 influenza, seasonal, injectable Cherise Sifuentes PA-C Work Phone: [facility] 02-23-2014 tetanus toxoid, redu andres diphtheria toxoid, and acellular pertussis vaccine, adsorbed Cherise Sifuentes PA-C Work Phone: [facility] [place] 10-20-2013 influenza virus vacc ine, unspecified formulation Cherise Sifuentes PA-C Work Phone: [facility] 08-08-2009 pneumococcal polysaccharide vaccine, 23 valent Cherise Sifuentes PA-C Work Phone: [facility] Work Phone: Payers Date Payer Category Payer Medicare HUMANA MEDICARE HU[employer]NA MEDICARE PPO [id number] 2022-Present [phone] [address] [address] [place] [address] PPO [id number] 2022 Medicare [id number] 2009 Unknown [employer] CARD PPO OOS [id number] 2009-Present [phone] [address] [place] [address] PPO [id number] 2009 Unknown [employer] BLUE CARD PPO OOS [id number] 2009-Present [phone] [address] [place] [address] PPO [id number] 1957 Unknown [id number] Social History Date Type Detail Facility Start: 07-21-2013 End: 06-30-2022 Tobacco smoking status NHIS Ex-smoker [facility] End: 11-08-1994 History of tobacco use Current smoker [facility] End: 11-08-1994 History of tobacco use Cigarette Smoker [facility] Start: 07-21-2013 End: 04-08-2023 Cigarettes smoked current (pack per day) - Reported 1.5 [facility] Start: 07-21-2013 End: 06-30-2022 Tobacco use and exposure Smokeless tobacco non-user [facility] Start: 10-22-2021 End: 09-09-2023 Alcohol intake Current non-drinker of alcohol (finding) [facility] Start: 09-25-2020 End: 11-22-2022 History SDOH Alcohol Frequency 1 [facility] Start: 09-25-2020 History SDOH Alcohol Std Drinks 98 [facility] Start: 05-20-2020 End: 09-25-2020 History SDOH Social Connections Phone 4 [facility] Start: 04-08-2020 End: 09-29-2022 History SDOH Social Connections Get Together 2 [facility] Start: 04-08-2020 End: 09-29-2022 History SDOH Social Connections Druze 3 [facility] Start: 04-08-2020 End: 09-29-2022 History SDOH Physical Activity DPW 0 [facility] Start: 04-07-2020 Education 21 [facility] Start: 07-21-2013 End: 06-30-2022 Tobacco Comment smoked 3 years in mid 90 [facility] Start: 1955 Sex Assigned At Female C [facility] Start: 02-13-2022 End: 10-05-2022 Exposure to SARS-CoV-2 (event) Not sure [facility] Start: 09-29-2022 History SDOH Financial 5 [facility] Start: 09-28-2022 End: 04-08-2023 Social connection and isolation panel [facility] Do you belong to any clubs or organizations such as holiness groups, unions, fraternal or athletic groups, or school groups? Yes [facility] Are you now , , , , never or living with a partner? [facility] How often to you hav e a drink containing alcohol? Never [facility] How many standard dr inks containing alcohol do you have on a typical day? Patient does not drink [facility] Do you feel stress - tense, restless, nervous, or anxious, or unable to sleep at night because your mind is troubled all the time - these days [OSQ] Not at all [facility] (I/We) worried wheth er (my/our) food would run out before (I/we) got money to buy more. Never true [facility] In the past 12 month s, was there a time when you were not able to pay the mortgage or rent on time? No [facility] Start: 01-16-2019 Gender identity Identifies as female gender (finding) [facility] Start: 01-16-2019 Sexual orientation Heterosexual (vu lo) [facility] How hard is it for y ou to pay for the very basics like food, housing, medical care, and heating Not very hard [facility] Do you feel stress - tense, restless, nervous, or anxious, or unable to sleep at night because your mind is troubled all the time - these days [OSQ] To some extent [facility] Clinical Notes 02-10-2022 to 12-10-2023 Latrice Dunn LPN - 12/10/2023 6:57 AM Francine Estrada APRN.ADVICE LINE RN - 10/08/2023 9:15 AM Latrice Workman LPN - 09/15/2023 8:30 AM Natalie Garcia Ma - 08/31/2023 11:37 AM EDT Note Date & Type Note Facility 12-10-2023 Note HNO ID: [id number] Author: LATRICE DUNN LPN Service: ? Author Type: LICENSED NURSE Type: Progress Notes Filed: 12/10/2023 07:02 Note Text: Scan on 12/10/2023 4:35 AM by ProviderDeyvi PA-C: Miscellaneous Lab [facility] 12-10-2023 History of Present illness Narrative Scan on 12/10/2023 4:35 AM by Deyvi Yadav PA-C: Miscellaneous Lab documented in this encounter [facility] 11-23-2023 Note HNO ID: [id number] Author: FRANCINE MADRID APRN.ELIZABETH Service: ? Author Type: Nurse Practitioner Type: Progress Notes Filed: 11/23/2023 10:08 Note Text: Chief Complaint Patient presents with: Follow Up: Blood pressure HPI Luz Marina Avila is a 68 year old female who presents here today for Above Complaints.. Patient presents for BP follow up. Patient was seen 10/22 at which time lisinopril was increased from 10 to 20 mg. Patient reports She also feels like she may have another UTI, c/o pressure, urgency and frequency. Past medical history, appointments, medications, allergies reviewed. 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 Encounter for Medicare annual wellness exam 04/08/2023 Medicare Part B: 07/09/2022 Last done: 04/08/2023 Essential hypertension 01/16/2016 Female pattern hair loss Foot callus 05/26/2021 History of colon polyps History of depression when History of hyperparathyroidism History of transient ischemic attack (TIA) 10/29/2017 06/29/2017 - R homonomous hemianopia with aphasia for couple hours - negative MRI/A following day Irritable bowel syndrome with diarrhea 05/26/2021 Living will on file at physician's office 04/08/2023 DPA: Jeffery () Meniere disease, right 10/29/2017 Mixed hyperlipidemia 05/31/2009 statin intolerance Narcolepsy without cataplexy 01/16/2016 Especially with long drives. Has been on provigil for 5-10 yrs Obstructive sleep apnea on CPAP Sibilia Pancreatic insufficiency 04/08/[address] Alcantar Psoriasis RLS (restless legs syndrome) 02/22/[address] Aysha Laurent with ocular symptoms S/P angioplasty with stent 01/09/2017 stents to mid and proximal left anterior descending Art, and angio of ostium of #2 diagonal Scalp itch Seasonal allergies Dr Pompa Vitamin D deficiency 2013 Well adult exam 01/16/2016 Last done: 09/08/2018 Previous Surgical History PAST SURGICAL HISTORY Procedure Laterality Date 2D ECHO (EXEP) 06/30/2017 EF=65%, trivial HI, TI and 1+ PI Unchanged from 04/2017 2D ECHO (EXEP) 05/14/2021 EF=60%, 1+ TI, trival HI, AI, PI 2D ECHO (EXEP) 09/16/2021 EF=60%, no significant valve disease BREAST LUMPECTOMY HX Left 04/08/2021 BUNIONECTOMY, LAPIDUS-TYPE 2009 left great toe BX BREAST W/DEVICE 1ST LESION STEREOTACTIC GUID Left 03/25/2021 DELIVERY ONLY CHOLECYSTECTOMY 2004 Cholecystectomy COLONOSCOPY 08/07/2015 no polyps, recheck 3-5 yrs COLONOSCOPY AND POLYPECTOMY 10/12, 10/13 Dr Avila; hyperplastic polyps COLONOSCOPY FLX DX W/COLLJ SPEC WHEN PFRMD 08/09/2018 Colonoscopy ESOPHAGOGASTRODUODENOSCOPY TRANSORAL DIAGNOSTIC 08/09/2018 EGD HEART CATHETERIZATION 2004 heart cath-normal per patient HEART CATHETERIZATION 01/04/2017 EF=60%, left anterior desending septal perferator 95-99% stenosis and diagonal branch 85% stenosis, HEART CATHETERIZATION 10/2018 HEART SURGERY HX 12/2016 Cardiac stents x 2 LOW BACK DISK SURGERY 2010 microdecompression L4 L5 MASTECTOMY, PARTIAL Left 04/08/2021 PAST SURGICAL HISTORY OF 2004 parathyroidectomy x1 PAST SURGICAL HISTORY OF lipoma x2 PAST SURGICAL HISTORY OF 10/2006 left foot surgery (bone cyst in heel, removed) PAST SURGICAL HISTORY OF 2014 bilateral carpel tunnel PAST SURGICAL HISTORY OF Right 10/2016 trigger finger release x2 REPAIR, DETACHED RETINA, LASER Right summer 2022 STENT PLACEMENT 01/06/2017 stents to mid and proximal left anterior descending Art, and angio of ostium of #2 diagonal STRESS TEST 04/20/2017 WNL TOTAL ABDOMINAL HYSTERECT W/WO RMVL TUBE OVARY 1995 LEDA for benign fibroid, ovaries intact Family History FAMILY HISTORY Problem Relation Age of Onset other (Pancreatic cancer) Mother Coronary Artery Disease Father 25 HI @ 25. CABG Diabetes Father Diabetes Paternal Grandmother Diabetes Maternal Grandfather other (Lung cancer) Brother other (suicide) Son may of been depression Patient Allergies ALLERGIES Allergen Reactions Brilinta [Ticagrelo* Shortness of Breath Crestor [Rosuvastat* Myalgia Keflex [Cephalexin] Other: See Comments facial flushing Lipitor [Atorvastat* Other: See Comm (more content not included)... [facility] 10-22-2023 Note HNO ID: [id number] Author: Francine Madrid APRN.ADVICE LINE RN Service: ? Author Type: Nurse Practitioner Type: Progress Notes Filed: 10/22/2023 10:11 AM Note Text: Chief Complaint Patient presents with: Follow Up: Blood pressure HPI Luz Marina Avila is a 68 year old female who presents here today for Above Complaints.. Patient presents for BP follow up. Patient was seen 10/08 and lisinopril was increased to 10mg BID. Past medical history, appointments, medications, allergies reviewed. 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 Encounter for Medicare annual wellness exam 04/08/2023 Medicare Part B: 07/09/2022 Last done: 04/08/2023 Essential hypertension 01/16/2016 Female pattern hair loss Foot callus 05/26/2021 History of colon polyps History of depression when History of hyperparathyroidism History of transient ischemic attack (TIA) 10/29/2017 06/29/2017 - R homonomous hemianopia with aphasia for couple hours - negative MRI/A following day Irritable bowel syndrome with diarrhea 05/26/2021 Living will on file at physician's office 04/08/2023 DPA: Jeffery () Meniere disease, right 10/29/2017 Mixed hyperlipidemia 05/31/2009 statin intolerance Narcolepsy without cataplexy 01/16/2016 Especially with long drives. Has been on provigil for 5-10 yrs Obstructive sleep apnea on CPAP Sibilia Pancreatic insufficiency 04/08/[address] Alcantar Psoriasis RLS (restless legs syndrome) 02/22/[address] Aysha Laurent with ocular symptoms S/P angioplasty with stent 01/09/2017 stents to mid and proximal left anterior descending Art, and angio of ostium of #2 diagonal Scalp itch Seasonal allergies Dr Pompa Vitamin D deficiency 2012 Well adult exam 01/16/2016 Last done: 09/08/2018 Previous Surgical History PAST SURGICAL HISTORY Procedure Laterality Date 2D ECHO (EXEP) 06/30/2017 EF=65%, trivial HI, TI and 1+ PI Unchanged from 04/2017 2D ECHO (EXEP) 05/14/2021 EF=60%, 1+ TI, trival HI, AI, PI 2D ECHO (EXEP) 09/16/2021 EF=60%, no significant valve disease BREAST LUMPECTOMY HX Left 04/08/2021 BUNIONECTOMY, LAPIDUS-TYPE 2010 left great toe BX BREAST W/DEVICE 1ST LESION STEREOTACTIC GUID Left 03/25/2021 DELIVERY ONLY CHOLECYSTECTOMY 2005 Cholecystectomy COLONOSCOPY 08/07/2015 no polyps, recheck 3-5 yrs COLONOSCOPY AND POLYPECTOMY 10/12, 10/13 Dr Avila; hyperplastic polyps COLONOSCOPY FLX DX W/COLLJ SPEC WHEN PFRMD 08/09/2018 Colonoscopy ESOPHAGOGASTRODUODENOSCOPY TRANSORAL DIAGNOSTIC 08/09/2018 EGD HEART CATHETERIZATION 2004 heart cath-normal per patient HEART CATHETERIZATION 01/04/2017 EF=60%, left anterior desending septal perferator 95-99% stenosis and diagonal branch 85% stenosis, HEART CATHETERIZATION 10/2018 HEART SURGERY HX 12/2016 Cardiac stents x 2 LOW BACK DISK SURGERY 2010 microdecompression L4 L5 MASTECTOMY, PARTIAL Left 04/08/2021 PAST SURGICAL HISTORY OF 2004 parathyroidectomy x1 PAST SURGICAL HISTORY OF lipoma x2 PAST SURGICAL HISTORY OF 10/2006 left foot surgery (bone cyst in heel, removed) PAST SURGICAL HISTORY OF 2014 bilateral carpel tunnel PAST SURGICAL HISTORY OF Right 10/2016 trigger finger release x2 REPAIR, DETACHED RETINA, LASER Right summer 2022 STENT PLACEMENT 01/06/2017 stents to mid and proximal left anterior descending Art, and angio of ostium of #2 diagonal STRESS TEST 04/20/2017 WNL TOTAL ABDOMINAL HYSTERECT W/WO RMVL TUBE OVARY 1995 LEDA for benign fibroid, ovaries intact Family History FAMILY HISTORY Problem Relation Age of Onset other (Pancreatic cancer) Mother Coronary Artery Disease Father 25 HI @ 25. CABG Diabetes Father Diabetes Paternal Grandmother Diabetes Maternal Grandfather other (Lung cancer) Brother other (suicide) Son may of been depression Patient Allergies ALLERGIES Allergen Reactions Brilinta [Ticagrelo* Shortness of Breath Crestor [Rosuvastat* Myalgia Keflex [Cephalexin] Other: See Comments facial flushing Lipitor [Atorvastat* Other: See Comments myalgia Lovastatin Other: See Comments myalgia Delphos [Hydrocodone-* Itching Current Medications C (more content not included)... [facility] 10-08-2023 Note HNO ID: [id number] Author: Francine Madrid APRN.ADVICE LINE RN Service: ? Author Type: Nurse Practitioner Type: Progress Notes Filed: 10/08/2023 9:30 AM Note Text: Chief Complaint Patient presents with: 6 Month Exam HPI Luz Marina Avila is a 68 year old female who presents here today for Above Complaints.. Patient presents for routine follow up. Patient was recently in ER for Covid and has recovered well. Patient Past medical history, appointments, medications, allergies reviewed. 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 Encounter for Medicare annual wellness exam 04/08/2023 Medicare Part B: 07/09/2022 Last done: 04/08/2023 Essential hypertension 01/16/2016 Female pattern hair loss Foot callus 05/26/2021 History of colon polyps History of depression when History of hyperparathyroidism History of transient ischemic attack (TIA) 10/29/2017 06/29/2017 - R homonomous hemianopia with aphasia for couple hours - negative MRI/A following day Irritable bowel syndrome with diarrhea 05/26/2021 Living will on file at physician's office 04/08/2023 DPA: Jeffery () Meniere disease, right 10/29/2017 Mixed hyperlipidemia 05/31/2009 statin intolerance Narcolepsy without cataplexy 01/16/2016 Especially with long drives. Has been on provigil for 5-10 yrs Obstructive sleep apnea on CPAP Sibilia Pancreatic insufficiency 04/08/[address] Alcantar Psoriasis RLS (restless legs syndrome) 02/22/[address] Aysha Laurent with ocular symptoms S/P angioplasty with stent 01/09/2017 stents to mid and proximal left anterior descending Art, and angio of ostium of #2 diagonal Scalp itch Seasonal allergies Dr Pompa Vitamin D deficiency 2012 Well adult exam 01/16/2016 Last done: 09/08/2018 Previous Surgical History PAST SURGICAL HISTORY Procedure Laterality Date 2D ECHO (EXEP) 06/30/2017 EF=65%, trivial HI, TI and 1+ PI Unchanged from 04/2017 2D ECHO (EXEP) 05/14/2021 EF=60%, 1+ TI, trival HI, AI, PI 2D ECHO (EXEP) 09/16/2021 EF=60%, no significant valve disease BREAST LUMPECTOMY HX Left 04/08/2021 BUNIONECTOMY, LAPIDUS-TYPE 2010 left great toe BX BREAST W/DEVICE 1ST LESION STEREOTACTIC GUID Left 03/25/2021 DELIVERY ONLY CHOLECYSTECTOMY 2005 Cholecystectomy COLONOSCOPY 08/07/2015 no polyps, recheck 3-5 yrs COLONOSCOPY AND POLYPECTOMY 10/12, 10/13 Dr Avila; hyperplastic polyps COLONOSCOPY FLX DX W/COLLJ SPEC WHEN PFRMD 08/09/2018 Colonoscopy ESOPHAGOGASTRODUODENOSCOPY TRANSORAL DIAGNOSTIC 08/09/2018 EGD HEART CATHETERIZATION 2004 heart cath-normal per patient HEART CATHETERIZATION 01/04/2017 EF=60%, left anterior desending septal perferator 95-99% stenosis and diagonal branch 85% stenosis, HEART CATHETERIZATION 10/2018 HEART SURGERY HX 12/2016 Cardiac stents x 2 LOW BACK DISK SURGERY 2010 microdecompression L4 L5 MASTECTOMY, PARTIAL Left 04/08/2021 PAST SURGICAL HISTORY OF 2004 parathyroidectomy x1 PAST SURGICAL HISTORY OF lipoma x2 PAST SURGICAL HISTORY OF 10/2006 left foot surgery (bone cyst in heel, removed) PAST SURGICAL HISTORY OF 2014 bilateral carpel tunnel PAST SURGICAL HISTORY OF Right 10/2016 trigger finger release x2 REPAIR, DETACHED RETINA, LASER Right summer 2022 STENT PLACEMENT 01/06/2017 stents to mid and proximal left anterior descending Art, and angio of ostium of #2 diagonal STRESS TEST 04/20/2017 WNL TOTAL ABDOMINAL HYSTERECT W/WO RMVL TUBE OVARY 1995 LEDA for benign fibroid, ovaries intact Family History FAMILY HISTORY Problem Relation Age of Onset other (Pancreatic cancer) Mother Coronary Artery Disease Father 25 HI @ 25. CABG Diabetes Father Diabetes Paternal Grandmother Diabetes Maternal Grandfather other (Lung cancer) Brother other (suicide) Son may of been depression Patient Allergies ALLERGIES Allergen Reactions Brilinta [Ticagrelo* Shortness of Breath Crestor [Rosuvastat* Myalgia Keflex [Cephalexin] Other: See Comments facial flushing Lipitor [Atorvastat* Other: See Comments myalgia Lovastatin Other: See Comments myalgia Delphos [Hydrocodone-* Itching Current Medications Curren (more content not included)... [facility] 10-08-2023 History of Present illness Narrative Chief Complaint Patient presents with: 6 Month Exam HPI Luz Marina Avila is a 68 year old female who presents here today for Above Complaints.. Patient presents for routine follow up. Patient was recently in ER for Covid and has recovered well. Patient Past medical history, appointments, medications, allergies reviewed. 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 Encounter for Medicare annual wellness exam 04/08/2023 Medicare Part B: 07/09/2022 Last done: 04/08/2023 Essential hypertension 01/16/2016 Female pattern hair loss Foot callus 05/26/2021 History of colon polyps History of depression when History of hyperparathyroidism History of transient ischemic attack (TIA) 10/29/2017 06/29/2017 - R homonomous hemianopia with aphasia for couple hours - negative MRI/A following day Irritable bowel syndrome with diarrhea 05/26/2021 Living will on file at physician's office 04/08/2023 DPA: Jeffery () Meniere disease, right 10/29/2017 Mixed hyperlipidemia 05/31/2009 statin intolerance Narcolepsy without cataplexy 01/16/2016 Especially with long drives. Has been on provigil for 5-10 yrs Obstructive sleep apnea on CPAP Sibilia Pancreatic insufficiency 04/08/[address] Alcantar Psoriasis RLS (restless legs syndrome) 02/22/[address] Aysha Laurent with ocular symptoms S/P angioplasty with stent 01/09/2017 stents to mid and proximal left anterior descending Art, and angio of ostium of #2 diagonal Scalp itch Seasonal allergies Dr Pompa Vitamin D deficiency 2012 Well adult exam 01/16/2016 Last done: 09/08/2018 Previous Surgical History PAST SURGICAL HISTORY Procedure Laterality Date 2D ECHO (EXEP) 06/30/2017 EF=65%, trivial HI, TI and 1+ PI Unchanged from 04/2017 2D ECHO (EXEP) 05/14/2021 EF=60%, 1+ TI, trival HI, AI, PI 2D ECHO (EXEP) 09/16/2021 EF=60%, no significant valve disease BREAST LUMPECTOMY HX Left 04/08/2021 BUNIONECTOMY, LAPIDUS-TYPE 2009 left great toe BX BREAST W/DEVICE 1ST LESION STEREOTACTIC GUID Left 03/25/2021 DELIVERY ONLY CHOLECYSTECTOMY 2004 Cholecystectomy COLONOSCOPY 08/07/2015 no polyps, recheck 3-5 yrs COLONOSCOPY & POLYPECTOMY 10/12, 10/13 Dr Avila; hyperplastic polyps COLONOSCOPY FLX DX W/COLLJ SPEC WHEN PFRMD 08/09/2018 Colonoscopy ESOPHAGOGASTRODUODENOSCOPY TRANSORAL DIAGNOSTIC 08/09/2018 EGD HEART CATHETERIZATION 2004 heart cath-normal per patient HEART CATHETERIZATION 01/04/2017 EF=60%, left anterior desending septal perferator 95-99% stenosis and diagonal branch 85% stenosis, HEART CATHETERIZATION 10/2018 HEART SURGERY HX 12/2016 Cardiac stents x 2 LOW BACK DISK SURGERY 2009 microdecompression L4 L5 MASTECTOMY, PARTIAL Left 04/08/2021 PAST SURGICAL HISTORY OF 2004 parathyroidectomy x1 PAST SURGICAL HISTORY OF lipoma x2 PAST SURGICAL HISTORY OF 10/2006 left foot surgery (bone cyst in heel, removed) PAST SURGICAL HISTORY OF 2014 bilateral carpel tunnel PAST SURGICAL HISTORY OF Right 10/2016 trigger finger release x2 REPAIR, DETACHED RETINA, LASER Right summer 2022 STENT PLACEMENT 01/06/2017 stents to mid and proximal left anterior descending Art, and angio of ostium of #2 diagonal STRESS TEST 04/20/2017 WNL TOTAL ABDOMINAL HYSTERECT W/WO RMVL TUBE OVARY 1995 LEDA for benign fibroid, ovaries intact Family History FAMILY HISTORY Problem Relation Age of Onset other (Pancreatic cancer) Mother Coronary Artery Disease Father 25 HI @ 25. CABG Diabetes Father Diabetes Paternal Grandmother Diabetes Maternal Grandfather other (Lung cancer) Brother other (suicide) Son may of been depression Patient Allergies ALLERGIES Allergen Reactions Brilinta [Ticagrelo* Shortness of Breath Crestor [Rosuvastat* Myalgia Keflex [Cephalexin] Other: See Comments facial flushing Lipitor [Atorvastat* Other: See Comments myalgia Lovastatin Other: See Comments myalgia Delphos [Hydrocodone-* Itching Current Medications Current Outpatient Medications on File Prior to Visit Medication Sig Calcium Citrate-Vitamin D3 (CITRACAL+D) 315 mg-6.25 mcg (250 unit) tab Take 2 tablets by mouth once daily. xufqat-tytripio-mwshnph (CREON) 12,000-38,000 -60,000 unit delayed release capsule Take by mouth three times daily with meals. ezetimibe (ZETIA) 10 mg tablet Take 1 tablet by mouth once daily. metFORMIN (GLUCOPHAGE) 500 mg tablet Take 2 tablets by mouth twice daily with meals. omeprazole (PRILOSEC) 40 mg capsule Take 1 capsule by mouth once daily. tamoxifen (NOLVADEX) 20 mg tablet Take 1 tablet (20 mg) by mouth once daily. potassium chloride SR (MICRO-K) 10 mEq CR capsule Take 2 capsules by mouth twice daily. ammonium lactate (LAC-HYDRIN) 12 % lotion Apply 1 application to affected area twice daily as needed. Clobetasol Propionate 0.05 % gel Apply 1 application to affected area as needed. doxycycline monohydrate (MONODOX) 50 mg capsule Take 50 mg by mouth as needed. take as needed for flare up of rosacea acetaminophen (TYLENOL) 500 mg tablet Take 1,000 mg by mouth every 8 hours as needed. nitroglycerin sublingual (NITROQUICK) 0.4 mg SL tablet Dissolve 1 tablet under the tongue every 5 minutes as needed for Chest Pain. ketoconazole (NIZORAL) 2 % shampoo Apply 1 application to affected area once daily as needed. MAGNESIUM SULFATE ORAL Take 500 mg by mouth once daily. montelukast (SINGULAIR) 10 mg tablet Take 10 mg by mouth daily at bedtime. metoprolol succinate ER (TOPROL XL) 25 mg 24 hr tablet Take 1 tablet by mouth twice daily. Per Dr. Gomez lisinopril (ZESTRIL, PRINIVIL) 5 mg tablet Take 1 tablet by mouth once daily. (Patient taking differently: Take 5 mg by mouth two times a day.) LACTOBACILLUS ACIDOPHILUS (PROBIOTIC ORAL) Take 1 tablet by mouth once daily. CPAP No current facility-administered medications on file prior to visit. Social History Social History Tobacco Use Smoking status: Former Packs/day: 1.50 Years: 3.00 Additional pack years: 0.00 Total pack years: 4.50 Types: Cigarettes Quit date: 11/08/1994 Years since quittin.9 Smokeless tobacco: Never Tobacco comments: smoked 3 years in mid 90s Vaping Use Vaping Use: Never used Substance Use Topics Alcohol use: No Drug use: No Review of Symptoms REVIEW OF SYSTEMS SEE HPI EXAM: BP 166/85 Pulse 62 Resp 14 Wt 64.9 kg (143 lb) BMI 25.34 kg/m General Appearance: Well appearing, alert, in no acute distress, well-hydrated, well nourished.. Skin: Skin color, texture, turgor normal, no suspicious rashes or lesions. Lungs: Lungs clear to auscultation. No wheezing, rhonchi, rales.. Heart: RRR without murmur, gallop, or rubs. No ectopy. Extremities: No deformities, edema, skin discoloration, clubbing or cyanosis. Good capillary refill. . Peripheral Pulses: Normal. Neurologic: Gait normal. Reflexes normal and symmetric. Sensation grossly intact.. Health Maintenance List Hepatitis B Vaccine(1 of 3 - Risk 3-dose series) Never done RSV Vaccine(1 - 1-dose 60+ series) Never done Covid-19 Vaccine(2022- season) due on 07/09/2023 DTaP,Tdap,Td Vaccine(2 - Td or Tdap) due on 02/24/2024 Mammogram Screening due on 02/25/2024 HbA1C due on 03/29/2024 Urine Albumin:Creatinine Ratio due on 04/02/2024 Diabetic Foot Exam due on 04/08/2024 Annual PCP Team Chronic Disease Visit due on 04/08/2024 BP Controlled (<130/80) due on 04/08/2024 Dilated Retinal Exam due on 05/23/2024 LDL Cholesterol due on 09/29/2024 Colorectal Cancer Screening due on 08/09/2028 Bone Density Screening Completed Advance Directive Discussion Completed Depression Assessment Completed Hepatitis C Screening Completed Shingrix Vaccine Completed Pneumococcal Vaccine: 65+ Completed Pap Testing Discontinued Influenza Vaccine Discontinued Data reviewed Last 5 Encounter BP Readings: Date: BP: 10/08/2023 166/85 09/09/2023 158/88 08/27/2023 180/80 07/23/2023 120/78 04/08/2023 128/84 Component Latest Ref Rng & Units 09/29/2023 Total Cholesterol, Nonfasting <200 mg/dL 141 Triglycerides, Nonfasting <150 mg/dL 121 HDL Cholesterol, Nonfasting >39 mg/dL 36 (L) LDL Cholesterol, Nonfasting <100 mg/dL 81 Non HDL Cholesterol, Nonfasting <130 mg/dL 105 VLDL Cholesterol, Nonfasting <30 mg/dL 24 Total Chol/HDL Ratio, Nonfasting <5.10 mg/dL 3.92 LDL/HDL Ratio, Nonfasting <2.54 mg/dL 2.25 Hemoglobin A1C 4.3 - 5.6 % 7.1 (H) Estimated Average Glucose mg/dL 157 ASSESSMENT/PLAN: 1. Essential hypertension - ICD9: 401.9, ICD10: I10 (primary diagnosis) - Uncontrolled - Continue current medications - Increase lisinopril - Recommend home blood pressure monitoring, to bring results to next visit - Encouraged sodium restriction, DASH or Mediterranean diet - Recommend regular aerobic exercise - Discussed need for and benefit of weight loss. BMI 25.34 kg/(m^2) - LISINOPRIL 10 MG TABLET 2. Controlled type 2 diabetes mellitus without complication, without long-term current use of insulin (HCC) - ICD9: 250.00, ICD10: E11.9 - Worsening control - Patient reports she has not been following her diet and will be working to improve this. 3. Mixed hyperlipidemia - ICD9: 272.2, ICD10: E78.2 - Controlled - Continue current medications - Counseled on healthy diet and regular exercise 4. Ductal carcinoma in situ (DCIS) of left breast - ICD9: 233.0, ICD10: D05.12 -Follows with Dr. Negrete 5. Obstructive sleep apnea on CPAP - ICD9: 327.23, ICD10: G47.33 -Wears CPAP Francine Madrid APRN.ADVICE LINE RN documented in this encounter [facility] 09-15-2023 Note HNO ID: [id number] Author: Latrice Dunn LPN Service: ? Author Type: ? Type: Progress Notes Filed: 09/15/2023 11:00 AM Note Text: Scan on 09/14/2023 5:34 PM by ProviderDeyvi PA-C: Consultation - Ophthalmology [facility] 09-15-2023 History of Present illness Narrative Scan on 09/14/2023 5:34 PM by ProviderDeyvi PA-C: Consultation - Ophthalmology documented in this encounter [facility] 09-09-2023 Note HNO ID: [id number] Author: Clifton Mckeon APRN.ELIZABETH Service: ? Author Type: Nurse Practitioner Type: Progress Notes Filed: 09/09/2023 3:47 PM Note Text: Subjective HPI Nontoxic-appearing female presents urgent care chief complaint cough sore throat headache. Duration of symptoms 2 days. Associated symptoms listed above. Most prominent symptom today is sore throat. States she was in contact with individuals at her [facility] who had the flu and COVID. Presents today for evaluation. Denies any recent OTC medication use. States is sick similar signs and symptoms. Denies any fever body aches chills productive cough chest pain shortness of breath pleuritic pain hemoptysis nausea vomiting abdominal pain change in bowel or bladder habits. Past medical history prescription medication use and allergies reviewed. 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 Encounter for Medicare annual wellness exam 04/08/2023 Medicare Part B: 07/09/2022 Last done: 04/08/2023 Essential hypertension 01/16/2016 Female pattern hair loss Foot callus 05/26/2021 History of colon polyps History of depression when History of hyperparathyroidism History of transient ischemic attack (TIA) 10/29/2017 06/29/2017 - R homonomous hemianopia with aphasia for couple hours - negative MRI/A following day Irritable bowel syndrome with diarrhea 05/26/2021 Living will on file at physician's office 04/08/2023 DPA: Jeffery () Meniere disease, right 10/29/2017 Mixed hyperlipidemia 05/31/2009 statin intolerance Narcolepsy without cataplexy 01/16/2016 Especially with long drives. Has been on provigil for 5-10 yrs Obstructive sleep apnea on CPAP Sibilia Pancreatic insufficiency 04/08/[address] Alcantar Psoriasis RLS (restless legs syndrome) 02/22/[address] Aysha Laurent with ocular symptoms S/P angioplasty with stent 01/09/2017 stents to mid and proximal left anterior descending Art, and angio of ostium of #2 diagonal Scalp itch Seasonal allergies Dr Pompa Vitamin D deficiency 2013 Well adult exam 01/16/2016 Last done: 09/08/2018 PAST SURGICAL HISTORY Procedure Laterality Date 2D ECHO (EXEP) 06/30/2017 EF=65%, trivial HI, TI and 1+ PI Unchanged from 04/2017 2D ECHO (EXEP) 05/14/2021 EF=60%, 1+ TI, trival HI, AI, PI 2D ECHO (EXEP) 09/16/2021 EF=60%, no significant valve disease BREAST LUMPECTOMY HX Left 04/08/2021 BUNIONECTOMY, LAPIDUS-TYPE 2010 left great toe BX BREAST W/DEVICE 1ST LESION STEREOTACTIC GUID Left 03/25/2021 DELIVERY ONLY CHOLECYSTECTOMY 2004 Cholecystectomy COLONOSCOPY 08/07/2015 no polyps, recheck 3-5 yrs COLONOSCOPY AND POLYPECTOMY 10/12, 10/13 Dr Avila; hyperplastic polyps COLONOSCOPY FLX DX W/COLLJ SPEC WHEN PFRMD 08/09/2018 Colonoscopy ESOPHAGOGASTRODUODENOSCOPY TRANSORAL DIAGNOSTIC 08/09/2018 EGD HEART CATHETERIZATION 2004 heart cath-normal per patient HEART CATHETERIZATION 01/04/2017 EF=60%, left anterior desending septal perferator 95-99% stenosis and diagonal branch 85% stenosis, HEART CATHETERIZATION 10/2018 HEART SURGERY HX 12/2016 Cardiac stents x 2 LOW BACK DISK SURGERY 2010 microdecompression L4 L5 MASTECTOMY, PARTIAL Left 04/08/2021 PAST SURGICAL HISTORY OF 2004 parathyroidectomy x1 PAST SURGICAL HISTORY OF lipoma x2 PAST SURGICAL HISTORY OF 10/2006 left foot surgery (bone cyst in heel, removed) PAST SURGICAL HISTORY OF 2014 bilateral carpel tunnel PAST SURGICAL HISTORY OF Right 10/2016 trigger finger release x2 REPAIR, DETACHED RETINA, LASER Right summer 2022 STENT PLACEMENT 01/06/2017 stents to mid and proximal left anterior descending Art, and angio of ostium of #2 diagonal STRESS TEST 04/20/2017 WNL TOTAL ABDOMINAL HYSTERECT W/WO RMVL TUBE OVARY 1995 LEDA for benign fibroid, ovaries intact ALLERGIES Brilinta [Ticagrelor], Crestor [Rosuvastatin], Keflex [Cephalexin], Lipitor [Atorvastatin], Lovastatin, and Delphos [Hydrocodone-Acetaminophen] MEDICATIONS Calcium Citrate-Vitamin D3 (CITRACAL+D) 315 mg-6.25 mcg (250 unit) tab Take 2 tablets by mouth once daily. lipase-prot (more content not included)... [facility] 08-31-2023 Note HNO ID: [id number] Author: Natalie Presley Ma Service: ? Author Type: ? Type: Progress Notes Filed: 08/31/2023 8:41 PM Note Text: Cardiology OV. Scan on 08/30/2023 2:05 PM by ProviderDeyvi PA-C: Consultation - Cardiology [facility] 08-31-2023 History of Present illness Narrative Cardiology OV. Scan on 08/30/2023 2:05 PM by ProviderDeyvi PAJosephC: Consultation - Cardiology documented in this encounter [facility] 08-27-2023 Note HNO ID: [id number] Author: 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 APRN.CNP Service: ? Author Type: Nurse Practitioner Type: Progress Notes Filed: 08/27/2023 10:49 AM Note Text: Chief Complaint Patient presents with: Established Patient: 6 month exam HPI: Luz Marina Avila is a 68 year old female who presents here today for follow up DCIS. Per Dr. Georges previous note: H/o [id number] diabetes mellitus, hypertension, ASCAD, and TIA who presented with an abnormal mammogram. She denies palpable discrete masses, but she notes lumpy breast. She denies nipple discharge. She denies previous breast biopsies. She denies previous breast surgeries. She notes occasional twinges of pain of her chest wall. She notes no breast or ovarian cancer in her family, mother of pancreatic cancer at age 59 and brother of lung cancer at age 58. She had a partial hysterectomy in her late 30s She is not on controls or estrogen replacement therapy Mammograms on 03/11/2021 There are a grouped pleomorphic calcifications in the left breast at 1 o'clock posterior depth. No other significant masses or calcifications are seen in the breast. IMPRESSION: SUSPICIOUS FINDING - BIOPSY SHOULD BE CONSIDERED The grouped pleomorphic calcifications in the left breast are suspicious of malignancy. A stereotactic biopsy is recommended. left stereotactic breast biopsy done on 11/15/2020. Findings of ductal carcinoma in situ Estrogen progesterone receptors positive ( >95%); HER-2/brandin negative (0) left breast lumpectomy for DCIS on 04/08/2021 at [facility] Pathology (from [facility]) reveals - ductal carcinoma in situ...,size of DCIS - 1.0 x 0.4 cm...,architectural type - cribriform..., nuclear grade 1-2..., necrosis - present central (expansive comedo necrosis)..., biopsy cavity is 0.5 cm from closest anterior margin (which is skin)..., ER >95%, AK >95% Postoperative course is unremarkable with no swelling or pain in her lumpectomy site. She is here today to discuss adjuvant therapy and chemoprevention for breast cancer. RADIATION:06/03/21 - 06/24/21 Current therapy:Tamoxifen Began after radiation Appetite: Good. Energy level: Good. Denies fevers or recent illness. Resp:denies cough or sob-follow up by PULM h/o seasonal allergies/sleep apnea-wears CPAP at hs Cardiac:denies chest pain/occ. palpitations-Followed by cardiology twice yearly GI:denies abd pain, n/v, h/o IBS, occ. constipation-followed by Dr. Alcantar/GI :denies dysuria/hematuria Extrem:denies pain Endo:hot flashes I will just get hot I don't know if it's a hot flash. 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 Past medical history, appointments, medications, allergies reviewed. No changes. EXAM: BP 180/80 Pulse 64 Temp 36.6 ?C (97.8 ?F) Ht 160 cm (5' 2.99 ) Wt 64.9 kg (143 lb) SpO2 98% BMI 25.34 kg/m? APPEARANCE Well appearing, alert, in no acute distress, well-hydrated, well nourished. HEART RRR with normal S1 and S2, no murmurs LUNG clear to auscultation BREAST FEMALE no mass/nodule b/l, L scar to outer/radiation changes LYMPH NODES No cervical lymphadenopathy, No supraclavicular lymphadenopathy, and No axillary lymphadenopathy. ABDOMEN bowel sounds normoactive, soft, non-tender EXTREMITIES No edema NEURO Awake, alert and oriented x 3, Normal gait, and No involuntary motions. SKIN Skin color, texture, turgor normal, no suspicious rashes or lesions ASSESSMENT/PLAN: 1. Ductal carcinoma in situ (DCIS) of left breast - ICD9: 233.0, ICD10: D05.12 - No new concerning findings on exam. - Tolerating tamoxifen well. - Continue tamoxifen. - Continue follow up with PCP/GI/Cards. - Mammogram as scheduled March 2024. - Follow up after above. - Pt. aware to call office with any questions/concerns. The patient indicates understanding of these issues and agrees with the plan. All documentation from previous visit of 02/26/23-Dr. Georges/myself was copied and pasted, documentation has been reviewed and edited as necessary for today's visit. 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 APRN.ADVICE LINE RN [facility] 08-02-2023 Note HNO ID: [id number] Author: Latrice Dunn LPN Service: ? Author Type: ? Type: Progress Notes Filed: 08/02/2023 8:50 AM Note Text: Scan on 07/30/2023 6:04 PM by ProviderDeyvi PA-C: Consultation - Ophthalmology [facility] 08-02-2023 History of Present illness Narrative Scan on 07/30/2023 6:04 PM by Deyvi Yadav PA-C: Consultation - Ophthalmology documented in this encounter [facility] 07-23-2023 Note HNO ID: [id number] Author: Sima Dumont APRN.ADVICE LINE RN Service: ? Author Type: Nurse Practitioner Type: Progress Notes Filed: 07/23/2023 12:28 PM Note Text: Robotic Technician offered: Patient declines. Luz Marina Avila is a 68 year old female who presents for problem visit urinary and vaginal symptoms for 3 days. HPI: Intermittent dysuria, frequency, urgency, pelvic aching x 3 days. No fever. Thinks may have had chills. No back pain. Symptoms began morning after SI. Always has some burning with voiding immediately after SI. No recent antibiotics. Some vaginal irritation. Vaginal discharge is pale yellow and increased amount. Clairvee and Revaree. 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 Encounter for Medicare annual wellness exam 04/08/2023 Medicare Part B: 07/09/2022 Last done: 04/08/2023 Essential hypertension 01/16/2016 Female pattern hair loss Foot callus 05/26/2021 History of colon polyps History of depression when History of hyperparathyroidism History of transient ischemic attack (TIA) 10/29/2017 06/29/2017 - R homonomous hemianopia with aphasia for couple hours - negative MRI/A following day Irritable bowel syndrome with diarrhea 05/26/2021 Living will on file at physician's office 04/08/2023 DPA: Jeffery () Meniere disease, right 10/29/2017 Mixed hyperlipidemia 05/31/2009 statin intolerance Narcolepsy without cataplexy 01/16/2016 Especially with long drives. Has been on provigil for 5-10 yrs Obstructive sleep apnea on CPAP Sibilia Pancreatic insufficiency 04/08/[address] Alcantar Psoriasis RLS (restless legs syndrome) 02/22/[address] Aysha Laurent with ocular symptoms S/P angioplasty with stent 01/09/2017 stents to mid and proximal left anterior descending Art, and angio of ostium of #2 diagonal Scalp itch Seasonal allergies Dr Pompa Vitamin D deficiency 2012 Well adult exam 01/16/2016 Last done: 09/08/2018 PAST SURGICAL HISTORY Procedure Laterality Date 2D ECHO (EXEP) 06/30/2017 EF=65%, trivial HI, TI and 1+ PI Unchanged from 04/2017 2D ECHO (EXEP) 05/14/2021 EF=60%, 1+ TI, trival HI, AI, PI 2D ECHO (EXEP) 09/16/2021 EF=60%, no significant valve disease BREAST LUMPECTOMY HX Left 04/08/2021 BUNIONECTOMY, LAPIDUS-TYPE 2010 left great toe BX BREAST W/DEVICE 1ST LESION STEREOTACTIC GUID Left 03/25/2021 DELIVERY ONLY CHOLECYSTECTOMY 2004 Cholecystectomy COLONOSCOPY 08/07/2015 no polyps, recheck 3-5 yrs COLONOSCOPY AND POLYPECTOMY 10/12, 10/13 Dr Avila; hyperplastic polyps COLONOSCOPY FLX DX W/COLLJ SPEC WHEN PFRMD 08/09/2018 Colonoscopy ESOPHAGOGASTRODUODENOSCOPY TRANSORAL DIAGNOSTIC 08/09/2018 EGD HEART CATHETERIZATION 2004 heart cath-normal per patient HEART CATHETERIZATION 01/04/2017 EF=60%, left anterior desending septal perferator 95-99% stenosis and diagonal branch 85% stenosis, HEART CATHETERIZATION 10/2018 HEART SURGERY HX 12/2016 Cardiac stents x 2 LOW BACK DISK SURGERY 2010 microdecompression L4 L5 MASTECTOMY, PARTIAL Left 04/08/2021 PAST SURGICAL HISTORY OF 2004 parathyroidectomy x1 PAST SURGICAL HISTORY OF lipoma x2 PAST SURGICAL HISTORY OF 10/2006 left foot surgery (bone cyst in heel, removed) PAST SURGICAL HISTORY OF 2014 bilateral carpel tunnel PAST SURGICAL HISTORY OF Right 10/2016 trigger finger release x2 STENT PLACEMENT 01/06/2017 stents to mid and proximal left anterior descending Art, and angio of ostium of #2 diagonal STRESS TEST 04/20/2017 WNL TOTAL ABDOMINAL HYSTERECT W/WO RMVL TUBE OVARY 1995 [facility] for benign fibroid, ovaries intact FAMILY HISTORY Problem Relation Age of Onset other (Pancreatic cancer) Mother Coronary Artery Disease Father 25 HI @ 25. CABG Diabetes Father Diabetes Paternal Grandmother Diabetes Maternal Grandfather other (Lung cancer) Brother other (suicide) Son may of been depression Social History Tobacco (more content not included)... [facility] 07-23-2023 Instructions Sima Dumont APRN.ELIZABETH - 07/23/2023 11:44 AM EDT Silicone based lubricant Lotrisone cream Continue Clairvee and Revaree Minimizing irritation of the vulva (area around the vagina) Wear white cotton underwear. Avoid synthetic fabrics and tight clothing. Sleep wearing shorts or pajama bottoms without underwear. Shower as soon as possible after exercise. Avoid clothing detergents and soaps with perfumes or dyes. Use warm (not hot) water to wash the vulva and if you use soap use a product designed for sensitive skin (like Dove or Cetaphil). Do not douche or use creams/powders in the vulvar area unless instructed by your physician. If you must douche, use only plain warm water. Make sure the vulva is dry before dressing by patting dry with a towel. Avoid vigorous rubbing with the towel. You may want to use the blow dryer (on the cool setting only!) on the vulva. The most important way to let your body heal is by avoiding scratching. Many patients find it difficult to avoid scratching at night when they are most aware of the itchiness. You can try taking Benadryl just before bedtime. Some women find it helpful to wear cotton gloves to bed to avoid scratching at night. documented in this encounter [facility] 07-23-2023 History of Present illness Narrative Robotic Technician offered: Patient declines. Luz Marina Avila is a 68 year old female who presents for problem visit urinary and vaginal symptoms for 3 days. HPI: Intermittent dysuria, frequency, urgency, pelvic aching x 3 days. No fever. Thinks may have had chills. No back pain. Symptoms began morning after SI. Always has some burning with voiding immediately after SI. No recent antibiotics. Some vaginal irritation. Vaginal discharge is pale yellow and increased amount. Clairvee and Revaree. 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 Encounter for Medicare annual wellness exam 04/08/2023 Medicare Part B: 07/09/2022 Last done: 04/08/2023 Essential hypertension 01/16/2016 Female pattern hair loss Foot callus 05/26/2021 History of colon polyps History of depression when History of hyperparathyroidism History of transient ischemic attack (TIA) 10/29/2017 06/29/2017 - R homonomous hemianopia with aphasia for couple hours - negative MRI/A following day Irritable bowel syndrome with diarrhea 05/26/2021 Living will on file at physician's office 04/08/2023 DPA: Jeffery () Meniere disease, right 10/29/2017 Mixed hyperlipidemia 05/31/2009 statin intolerance Narcolepsy without cataplexy 01/16/2016 Especially with long drives. Has been on provigil for 5-10 yrs Obstructive sleep apnea on CPAP Sibilia Pancreatic insufficiency 04/08/[address] Alcantar Psoriasis RLS (restless legs syndrome) 02/22/[address] Aysha Laurent with ocular symptoms S/P angioplasty with stent 01/09/2017 stents to mid and proximal left anterior descending Art, and angio of ostium of #2 diagonal Scalp itch Seasonal allergies Dr Pompa Vitamin D deficiency 2012 Well adult exam 01/16/2016 Last done: 09/08/2018 PAST SURGICAL HISTORY Procedure Laterality Date 2D ECHO (EXEP) 06/30/2017 EF=65%, trivial HI, TI and 1+ PI Unchanged from 04/2017 2D ECHO (EXEP) 05/14/2021 EF=60%, 1+ TI, trival HI, AI, PI 2D ECHO (EXEP) 09/16/2021 EF=60%, no significant valve disease BREAST LUMPECTOMY HX Left 04/08/2021 BUNIONECTOMY, LAPIDUS-TYPE 2010 left great toe BX BREAST W/DEVICE 1ST LESION STEREOTACTIC GUID Left 03/25/2021 DELIVERY ONLY CHOLECYSTECTOMY 2004 Cholecystectomy COLONOSCOPY 08/07/2015 no polyps, recheck 3-5 yrs COLONOSCOPY & POLYPECTOMY 10/12, 10/13 Dr Avila; hyperplastic polyps COLONOSCOPY FLX DX W/COLLJ SPEC WHEN PFRMD 08/09/2018 Colonoscopy ESOPHAGOGASTRODUODENOSCOPY TRANSORAL DIAGNOSTIC 08/09/2018 EGD HEART CATHETERIZATION 2004 heart cath-normal per patient HEART CATHETERIZATION 01/04/2017 EF=60%, left anterior desending septal perferator 95-99% stenosis and diagonal branch 85% stenosis, HEART CATHETERIZATION 10/2018 HEART SURGERY HX 12/2016 Cardiac stents x 2 LOW BACK DISK SURGERY 2010 microdecompression L4 L5 MASTECTOMY, PARTIAL Left 04/08/2021 PAST SURGICAL HISTORY OF 2004 parathyroidectomy x1 PAST SURGICAL HISTORY OF lipoma x2 PAST SURGICAL HISTORY OF 10/2006 left foot surgery (bone cyst in heel, removed) PAST SURGICAL HISTORY OF 2014 bilateral carpel tunnel PAST SURGICAL HISTORY OF Right 10/2016 trigger finger release x2 STENT PLACEMENT 01/06/2017 stents to mid and proximal left anterior descending Art, and angio of ostium of #2 diagonal STRESS TEST 04/20/2017 WNL TOTAL ABDOMINAL HYSTERECT W/WO RMVL TUBE OVARY 1995 [facility] for benign fibroid, ovaries intact FAMILY HISTORY Problem Relation Age of Onset other (Pancreatic cancer) Mother Coronary Artery Disease Father 25 HI @ 25. CABG Diabetes Father Diabetes Paternal Grandmother Diabetes Maternal Grandfather other (Lung cancer) Brother other (suicide) Son may of been depression Social History Tobacco Use Smoking status: Former Packs/day: 1.50 Years: 3.00 Additional pack years: 0.00 Total pack years: 4.50 Types: Cigarettes Quit date: 11/08/1994 Years since quittin.7 Smokeless tobacco: Never Tobacco comments: smoked 3 years in mid 90s Vaping Use Vaping Use: Never used Substance Use Topics Alcohol use: No Drug use: No Current Outpatient Medications Medication Sig pyridoxine, vitamin B6, (VITAMIN B-6) 100 mg tablet Take 1 tablet by mouth once daily. Calcium Citrate-Vitamin D3 (CITRACAL+D) 315 mg-6.25 mcg (250 unit) tab Take 2 tablets by mouth once daily. mlidnw-dzqeciri-vcpslso (CREON) 12,000-38,000 -60,000 unit delayed release capsule Take by mouth three times daily with meals. ezetimibe (ZETIA) 10 mg tablet Take 1 tablet by mouth once daily. metFORMIN (GLUCOPHAGE) 500 mg tablet Take 2 tablets by mouth twice daily with meals. omeprazole (PRILOSEC) 40 mg capsule Take 1 capsule by mouth once daily. tamoxifen (NOLVADEX) 20 mg tablet Take 1 tablet (20 mg) by mouth once daily. potassium chloride SR (MICRO-K) 10 mEq CR capsule Take 2 capsules by mouth twice daily. ammonium lactate (LAC-HYDRIN) 12 % lotion Apply 1 application to affected area twice daily as needed. Clobetasol Propionate 0.05 % gel Apply 1 application to affected area as needed. doxycycline monohydrate (MONODOX) 50 mg capsule Take 50 mg by mouth as needed. acetaminophen (TYLENOL) 500 mg tablet Take 1,000 mg by mouth every 8 hours as needed. nitroglycerin sublingual (NITROQUICK) 0.4 mg SL tablet Dissolve 1 tablet under the tongue every 5 minutes as needed for Chest Pain. ketoconazole (NIZORAL) 2 % shampoo Apply 1 application to affected area once daily as needed. MAGNESIUM SULFATE ORAL Take 500 mg by mouth once daily. montelukast (SINGULAIR) 10 mg tablet Take 10 mg by mouth daily at bedtime. metoprolol succinate ER (TOPROL XL) 25 mg 24 hr tablet Take 1 tablet by mouth twice daily. Per Dr. Gomez lisinopril (ZESTRIL, PRINIVIL) 5 mg tablet Take 1 tablet by mouth once daily. (Patient taking differently: Take 10 mg by mouth once daily.) LACTOBACILLUS ACIDOPHILUS (PROBIOTIC ORAL) Take 1 tablet by mouth once daily. CPAP hydroCHLOROthiazide 25 mg tablet Take 1 tablet by mouth once daily. (Patient not taking: Reported on 07/23/2023) No current facility-administered medications for this visit. Allergies As of Date: 07/23/2023 Allergen Noted Reaction BRILINTA [TICAGRELOR] 06/28/2017 Shortness of Breath CRESTOR [ROSUVASTATIN] 04/10/2020 Myalgia KEFLEX [CEPHALEXIN] 02/02/2006 Other: See Comments LIPITOR [ATORVASTATIN] 07/21/2013 Other: See Comments LOVASTATIN 07/21/2013 Other: See Comments NORCO [HYDROCODONE-ACETAMINOPHEN] 10/29/2016 Itching Fully Assessed 07/23/2023 REVIEW OF SYSTEMS Abdomen: No bloating, early satiety, indigestion, or increased flatulence. No abdominal pain, nausea, vomiting, diarrhea, or constipation. Bladder: See HPI. No gross hematuria Allergies and current medication updated:Yes EXAM: BP 120/78 Wt 139 lb 3.2 oz (63.1kg) T 99.6 GENERAL: pleasant, female in no apparent distress CHEST: Normal inspiratory effort ABDOMEN: soft, non-tender, no masses, and No CVAT PELVIC: external genitalia normal, normal Bartholin's glands, urethra, [place]'s glands, no vulvar lesions, small amount thick white discharge present, normal appearing perineal body and perianal region, cervix surgically absent. Vulva mildly edematous and erythematous. BIMANUAL: no adnexal masses, non-tender, and uterus surgically absent NEURO: alert and oriented x3,exam grossly non-focal ASSESSMENT/PLAN: 1. Dysuria - ICD9: 788.1, ICD10: R30.0 (primary diagnosis) acute - UA positive for yung esterase and trace intact blood - Send urine for culture - Begin Macrobid 100 mg bid - Patient education for prevention given - URINE CULTURE 2. Urine frequency - ICD9: 788.41, ICD10: R35.0 - see above - URINE CULTURE 3. Vaginal discharge - ICD9: 623.5, ICD10: N89.8 - BACT/CHINO VAG GRAM STAIN - Continue Clairvee and Revaree 4. Vulvovaginal discomfort - ICD9: 625.9, ICD10: R10.2 - BACT/CHINO VAG GRAM STAIN - CLOTRIMAZOLE-BETAMETHASONE 1 %-0.05 % TOPICAL CREAM Will notify of results. Follow- up as needed. Sima Dumont APRN.ELIZABETH Medical Decision Making: Problems: Low: Acute, uncomplicated illness or injury Data: Unique test(s) ordered: 3+ Risk: Moderate: Drug management and Moderate risk from testing/treatment Medical Decision Making Level: 4 - Moderate documented in this encounter [facility] 06-15-2023 Note HNO ID: [id number] Author: Lartice Dunn LPN Service: ? Author Type: ? Type: Progress Notes Filed: 06/15/2023 8:30 PM Note Text: Scan on 06/14/2023 2:02 PM by Deyvi Yadav PA-C: Consultation - Ophthalmology [facility] 06-15-2023 History of Present illness Narrative Scan on 06/14/2023 2:02 PM by Deyvi Yadav PA-C: Consultation - Ophthalmology documented in this encounter [facility] 06-07-2023 Note HNO ID: [id number] Author: Tahmina Lopze MA Service: ? Author Type: Irrigator Gravity Flow Type: Progress Notes Filed: 06/12/2023 8:09 PM Note Text: Scan on 06/07/2023 8:43 AM by Deyvi Yadav PA-C: Consultation - Ophthalmology HM updated. Tahmina Lopez MA [facility] 06-07-2023 History of Present illness Narrative Scan on 06/07/2023 8:43 AM by Provider, External, KELLY: Consultation - Ophthalmology HM updated. Tahmina Lopez MA documented in this encounter [facility] 04-09-2023 Note HNO ID: [id number] Author: Latrice Dunn LPN Service: ? Author Type: ? Type: Progress Notes Filed: 04/09/2023 11:54 AM Note Text: Scan on 04/08/2023 4:51 PM by External Provider, KELLY: Consultation - Ophthalmology [facility] 04-09-2023 History of Present illness Narrative Scan on 04/08/2023 4:51 PM by External Provider, KELLY: Consultation - Ophthalmology documented in this encounter [facility] 04-09-2023 Miscellaneous Notes See update from pt. Natalie Presley Ma documented in this encounter [facility] 04-08-2023 Note HNO ID: [id number] Author: Clifton Hung MD Service: ? 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 04/2021 Encounter for Medicare annual wellness exam 04/08/2023 Medicare Part B: 07/09/2022 Last done: 04/08/2023 Essential hypertension 01/16/2016 Female pattern hair loss Foot callus 05/26/2021 History of colon polyps History of depression when History of hyperparathyroidism History of transient ischemic attack (TIA) 10/29/2017 06/29/2017 - R homonomous hemianopia with aphasia for couple hours - negative MRI/A following day Irritable bowel syndrome with diarrhea 05/26/2021 Meniere disease, right 10/29/2017 Mixed hyperlipidemia 05/31/2009 statin intolerance Narcolepsy without cataplexy 01/16/2016 Especially with long drives. Has been on provigil for 5-10 yrs Obstructive sleep apnea on CPAP Sibilia Psoriasis RLS (restless legs syndrome) 02/22/[address] Aysha Laurent with ocular symptoms S/P angioplasty with stent 01/09/2017 stents to mid and proximal left anterior descending Art, and angio of ostium of #2 diagonal Scalp itch Seasonal allergies Dr Pompa Vitamin D deficiency 2012 Well adult exam 01/16/2016 Last done: 09/08/2018 PAST SURGICAL HISTORY Procedure Laterality Date 2D ECHO (EXEP) 06/30/2017 EF=65%, trivial HI, TI and 1+ PI Unchanged from 04/2017 2D ECHO (EXEP) 05/14/2021 EF=60%, 1+ TI, trival HI, AI, PI 2D ECHO (EXEP) 09/16/2021 EF=60%, no significant valve disease BREAST LUMPECTOMY HX Left 04/08/2021 BUNIONECTOMY, LAPIDUS-TYPE 2010 left great toe BX BREAST W/DEVICE 1ST LESION STEREOTACTIC GUID Left 03/25/2021 DELIVERY ONLY CHOLECYSTECTOMY 2004 Cholecystectomy COLONOSCOPY 08/07/2015 no polyps, recheck 3-5 yrs COLONOSCOPY AND POLYPECTOMY 10/12, 10/13 Dr Avila; hyperplastic polyps COLONOSCOPY FLX DX W/COLLJ SPEC WHEN PFRMD 08/09/2018 Colonoscopy ESOPHAGOGASTRODUODENOSCOPY TRANSORAL DIAGNOSTIC 08/09/2018 EGD HEART CATHETERIZATION 2004 heart cath-normal per patient HEART CATHETERIZATION 01/04/2017 EF=60%, left anterior desending septal perferator 95-99% stenosis and diagonal branch 85% stenosis, HEART CATHETERIZATION 10/2018 HEART SURGERY HX 12/2016 Cardiac stents x 2 LOW BACK DISK SURGERY 2010 microdecompression L4 L5 MASTECTOMY, PARTIAL Left 04/08/2021 PAST SURGICAL HISTORY OF 2004 parathyroidectomy x1 PAST SURGICAL HISTORY OF lipoma x2 PAST SURGICAL HISTORY OF 10/2006 left foot surgery (bone cyst in heel, removed) PAST SURGICAL HISTORY OF 2014 bilateral carpel tunnel PAST SURGICAL HISTORY OF Right 10/2016 trigger finger release x2 STENT PLACEMENT 01/06/2017 stents to mid and proximal left anterior descending Art, and angio of ostium of #2 diagonal STRESS TEST 04/20/2017 WNL TOTAL ABDOMINAL HYSTERECT W/WO RMVL TUBE OVARY 1995 [facility] for benign fibroid, ovaries intact ALLERGIES: Brilinta [Ticagrelor], Crestor [Rosuvastatin], Keflex [Cephalexin], Lipitor [Atorvastatin], Lovastatin, and [place] [Hydrocodone-Acetaminophen] Medications reviewed: Yes FAMILY HISTORY Problem Relation Age of Onset other (Pancreatic cancer) Mother Coronary Artery Disease Father 25 HI @ 25. CABG Diabetes Father Diabetes Paternal Grandmother Diabetes Maternal Grandfather other (Lung cancer) Brother other (suicide) Son may of been depression SOCIAL HISTORY: Social History Tobacco Use Smoking status: Former Packs/day: 1.50 Years: 3.00 Pack years: 4.50 Types: Cigarettes Quit date: 11/08/1994 Years since quittin.4 Smokeless tobacco: Never Tobacco comments: smoked 3 years in mid 90s Vaping Use Vaping Use: Never used Substance Use Topics Alcohol use: No Drug use: No Luz Marina works out regularly 2-3 times per week with walking. She watches her diet for sodium, low fat and low cholesterol all of the time. List of current specialists seen: Dr. Alcantar (Gastro) Dr. Zarate (Cardio) Dr. Manzanares (Pulm for SEBAS and RLS, Allergies) End of Live Planning discussed including patients advanced directive wishes: Yes I am willing to follow Luz Marina's advanced dir (more content not included)... [facility] 04-08-2023 Instructions Clifton Hung MD - 04/08/2023 2:04 PM EDT Please get labs done on or after 09/24/2023 prior to your next visit. documented in this encounter [facility] 04-08-2023 History of Present illness Narrative Images from the original note were not included. 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 Encounter for Medicare annual wellness exam 04/08/2023 Medicare Part B: 07/09/2022 Last done: 04/08/2023 Essential hypertension 01/16/2016 Female pattern hair loss Foot callus 05/26/2021 History of colon polyps History of depression when History of hyperparathyroidism History of transient ischemic attack (TIA) 10/29/2017 06/29/2017 - R homonomous hemianopia with aphasia for couple hours - negative MRI/A following day Irritable bowel syndrome with diarrhea 05/26/2021 Meniere disease, right 10/29/2017 Mixed hyperlipidemia 05/31/2009 statin intolerance Narcolepsy without cataplexy 01/16/2016 Especially with long drives. Has been on provigil for 5-10 yrs Obstructive sleep apnea on CPAP Sibilia Psoriasis RLS (restless legs syndrome) 02/22/[address] Aysha Laurent with ocular symptoms S/P angioplasty with stent 01/09/2017 stents to mid and proximal left anterior descending Art, and angio of ostium of #2 diagonal Scalp itch Seasonal allergies Dr Pompa Vitamin D deficiency 2013 Well adult exam 01/16/2016 Last done: 09/08/2018 PAST SURGICAL HISTORY Procedure Laterality Date 2D ECHO (EXEP) 06/30/2017 EF=65%, trivial HI, TI and 1+ PI Unchanged from 04/2017 2D ECHO (EXEP) 05/14/2021 EF=60%, 1+ TI, trival HI, AI, PI 2D ECHO (EXEP) 09/16/2021 EF=60%, no significant valve disease BREAST LUMPECTOMY HX Left 04/08/2021 BUNIONECTOMY, LAPIDUS-TYPE 2009 left great toe BX BREAST W/DEVICE 1ST LESION STEREOTACTIC GUID Left 03/25/2021 DELIVERY ONLY CHOLECYSTECTOMY 2004 Cholecystectomy COLONOSCOPY 08/07/2015 no polyps, recheck 3-5 yrs COLONOSCOPY & POLYPECTOMY 10/12, 10/13 Dr Avila; hyperplastic polyps COLONOSCOPY FLX DX W/COLLJ SPEC WHEN PFRMD 08/09/2018 Colonoscopy ESOPHAGOGASTRODUODENOSCOPY TRANSORAL DIAGNOSTIC 08/09/2018 EGD HEART CATHETERIZATION 2004 heart cath-normal per patient HEART CATHETERIZATION 01/04/2017 EF=60%, left anterior desending septal perferator 95-99% stenosis and diagonal branch 85% stenosis, HEART CATHETERIZATION 10/2018 HEART SURGERY HX 12/2016 Cardiac stents x 2 LOW BACK DISK SURGERY 2010 microdecompression L4 L5 MASTECTOMY, PARTIAL Left 04/08/2021 PAST SURGICAL HISTORY OF 2004 parathyroidectomy x1 PAST SURGICAL HISTORY OF lipoma x2 PAST SURGICAL HISTORY OF 10/2006 left foot surgery (bone cyst in heel, removed) PAST SURGICAL HISTORY OF 2014 bilateral carpel tunnel PAST SURGICAL HISTORY OF Right 10/2016 trigger finger release x2 STENT PLACEMENT 01/06/2017 stents to mid and proximal left anterior descending Art, and angio of ostium of #2 diagonal STRESS TEST 04/20/2017 WNL TOTAL ABDOMINAL HYSTERECT W/WO RMVL TUBE OVARY 1995 LEDA for benign fibroid, ovaries intact ALLERGIES: Brilinta [Ticagrelor], Crestor [Rosuvastatin], Keflex [Cephalexin], Lipitor [Atorvastatin], Lovastatin, and Delphos [Hydrocodone-Acetaminophen] Medications reviewed: Yes FAMILY HISTORY Problem Relation Age of Onset other (Pancreatic cancer) Mother Coronary Artery Disease Father 25 HI @ 25. CABG Diabetes Father Diabetes Paternal Grandmother Diabetes Maternal Grandfather other (Lung cancer) Brother other (suicide) Son may of been depression SOCIAL HISTORY: Social History Tobacco Use Smoking status: Former Packs/day: 1.50 Years: 3.00 Pack years: 4.50 Types: Cigarettes Quit date: 11/08/1994 Years since quittin.4 Smokeless tobacco: Never Tobacco comments: smoked 3 years in mid 90s Vaping Use Vaping Use: Never used Substance Use Topics Alcohol use: No Drug use: No Luz Marina works out regularly 2-3 times per week with walking. She watches her diet for sodium, low fat and low cholesterol all of the time. List of current specialists seen: Dr. Alcantar (Gastro) Dr. Zarate (Cardio) Dr. Manzanares (Pulm for SEBAS and RLS, Allergies) End of Live Planning discussed including patients advanced directive wishes: Yes I am willing to follow Luz Marina's advanced directives. PHQ-2 / Depression screen Depression Screening 08/28/2022 10/05/2022 02/23/2023 04/08/2023 PHQ-2 Score 0 0 0 0 AMELIA-2 Total Score - - - - Depression screening tool completed and reviewed. Based on score and interview, patient is not at risk for depression. Screening tool discussed with patient, and I recommended no further intervention at this time. Functional Ability/Safety Screen 1. Was the patient's timed Up and Go test unsteady or longer than 30 seconds? No 2. Does the patient need help with the phone, transportation, shopping,preparing meals, housework, laundry, medications or managing money? No 3. Does your home have rugs in the hallway, lack of grab bars in the bathroom, lack of handrails on the stairs or have poor lighting? No Hearing Evaluation: hard of hearing PHYSICAL EXAM BP 128/84 (BP Site: Left Arm, BP Position: Sitting, BP Cuff Size: Regular Adult) Pulse 70 Resp 16 Ht 157.5 cm (5' 2 ) Wt 60.3 kg (133 lb) BMI 24.33 kg/m Alert and oriented X 3: YES Body mass index is 24.33 kg/m . Visual acuity: seeing Optho See below ASSESSMENT/PLAN: 67 year old female The following prevention plan was discussed during the office visit and provided to the patient: - Lipid panel - Glaucoma screening See below Clifton Hung MD Chief Complaint Patient presents with: Medicare Wellness Exam HPI Luz Marina Avila is a 67 year old female who presents here today for Chronic Medical Conditions. and Welcome to medicare wellness Office visit - medicare wellness Patient with hx of HTN, hyperlipidemia, SBEAS, DM2, CAD, hyperparathyroid, hx of breast cancer, and those as below. Patient overall doing okay. Has been found to have pancreatic insufficiency and has james started on a diet and creon per Gastro and doing well. Office visit 6 month follow up 09/2022 Patient with hx of HTN, hyperlipidemia, SEBAS, DM2, CAD, hyperparathyroid, hx of breast cancer, and those as below. Patient overall doing okay. Has had some left sided mid to upper back pain. Comes and goes. No injury that she can recall. Past medical history, appointments, medications, allergies reviewed. 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 Has been on provigil for 5-10 yrs Obstructive sleep apnea on CPAP Sibilia Psoriasis RLS (restless legs syndrome) 02/22/[address] Aysha Laurent with ocular symptoms S/P angioplasty with stent 01/09/2017 stents to mid and proximal left anterior descending Art, and angio of ostium of #2 diagonal Scalp itch Seasonal allergies Dr Pompa Vitamin D deficiency 2012 Well adult exam 01/16/2016 Last done: 09/08/2018 Previous Surgical History PAST SURGICAL HISTORY Procedure Laterality Date 2D ECHO (EXEP) 06/30/2017 EF=65%, trivial HI, TI and 1+ PI Unchanged from 04/2017 2D ECHO (EXEP) 05/14/2021 EF=60%, 1+ TI, trival HI, AI, PI 2D ECHO (EXEP) 09/16/2021 EF=60%, no significant valve disease BREAST LUMPECTOMY HX Left 04/08/2021 BUNIONECTOMY, LAPIDUS-TYPE 2009 left great toe BX BREAST W/DEVICE 1ST LESION STEREOTACTIC GUID Left 03/25/2021 DELIVERY ONLY CHOLECYSTECTOMY 2004 Cholecystectomy COLONOSCOPY 08/07/2015 no polyps, recheck 3-5 yrs COLONOSCOPY & POLYPECTOMY 10/12, 10/13 Dr Avila; hyperplastic polyps COLONOSCOPY FLX DX W/COLLJ SPEC WHEN PFRMD 08/09/2018 Colonoscopy ESOPHAGOGASTRODUODENOSCOPY TRANSORAL DIAGNOSTIC 08/09/2018 EGD HEART CATHETERIZATION 2004 heart cath-normal per patient HEART CATHETERIZATION 01/04/2017 EF=60%, left anterior desending septal perferator 95-99% stenosis and diagonal branch 85% stenosis, HEART CATHETERIZATION 10/2018 HEART SURGERY HX 12/2016 Cardiac stents x 2 LOW BACK DISK SURGERY 2010 microdecompression L4 L5 MASTECTOMY, PARTIAL Left 04/08/2021 PAST SURGICAL HISTORY OF 2004 parathyroidectomy x1 PAST SURGICAL HISTORY OF lipoma x2 PAST SURGICAL HISTORY OF 10/2006 left foot surgery (bone cyst in heel, removed) PAST SURGICAL HISTORY OF 2014 bilateral carpel tunnel PAST SURGICAL HISTORY OF Right 10/2016 trigger finger release x2 STENT PLACEMENT 01/06/2017 stents to mid and proximal left anterior descending Art, and angio of ostium of #2 diagonal STRESS TEST 04/20/2017 WNL TOTAL ABDOMINAL HYSTERECT W/WO RMVL TUBE OVARY 1995 LEDA for benign fibroid, ovaries intact Family History FAMILY HISTORY Problem Relation Age of Onset other (Pancreatic cancer) Mother Coronary Artery Disease Father 25 HI @ 25. CABG Diabetes Father Diabetes Paternal Grandmother Diabetes Maternal Grandfather other (Lung cancer) Brother other (suicide) Son may of been depression Patient Allergies ALLERGIES Allergen Reactions Brilinta [Ticagrelo* Shortness of Breath Crestor [Rosuvastat* Myalgia Keflex [Cephalexin] Other: See Comments facial flushing Lipitor [Atorvastat* Other: See Comments myalgia Lovastatin Other: See Comments myalgia Delphos [Hydrocodone-* Itching Current Medications Current Outpatient Medications on File Prior to Visit Medication Sig benzonatate (TESSALON PERLE) 100 mg capsule Take 2 capsules by mouth three times daily as needed. tamoxifen (NOLVADEX) 20 mg tablet Take 1 tablet (20 mg) by mouth once daily. ezetimibe (ZETIA) 10 mg tablet Take 1 tablet by mouth once daily. hydroCHLOROthiazide (HYDRODIURIL, ESIDRIX) 25 mg tablet Take 1 tablet by mouth once daily. metFORMIN (GLUCOPHAGE) 500 mg tablet Take 2 tablets by mouth twice daily with meals. cyclobenzaprine (FLEXERIL) 10 mg tablet Take 1 tablet by mouth three times daily as needed for muscle spasm. omeprazole (PRILOSEC) 40 mg capsule Take 1 capsule by mouth once daily. potassium chloride SR (MICRO-K) 10 mEq CR capsule Take 2 capsules by mouth twice daily. ammonium lactate (LAC-HYDRIN) 12 % lotion Apply 1 application to affected area twice daily as needed. Clobetasol Propionate 0.05 % gel Apply 1 application to affected area as needed. doxycycline monohydrate (MONODOX) 50 mg capsule Take 50 mg by mouth as needed. calcium citrate/vitamin D3 (CALCIUM CITRATE + D ORAL) Take 1 tablet by mouth once daily. acetaminophen (TYLENOL) 500 mg tablet Take 1,000 mg by mouth every 8 hours as needed. nitroglycerin sublingual (NITROQUICK) 0.4 mg SL tablet Dissolve 1 tablet under the tongue every 5 minutes as needed for Chest Pain. ketoconazole (NIZORAL) 2 % shampoo Apply 1 application to affected area once daily as needed. MAGNESIUM SULFATE ORAL Take 500 mg by mouth once daily. montelukast (SINGULAIR) 10 mg tablet Take 10 mg by mouth daily at bedtime. metoprolol succinate ER (TOPROL XL) 25 mg 24 hr tablet Take 1 tablet by mouth twice daily. Per Dr. Gomez lisinopril (ZESTRIL, PRINIVIL) 5 mg tablet Take 1 tablet by mouth once daily. LACTOBACILLUS ACIDOPHILUS (PROBIOTIC ORAL) Take 1 tablet by mouth once daily. CPAP No current facility-administered medications on file prior to visit. Social History Social History Tobacco Use Smoking status: Former Packs/day: 1.50 Years: 3.00 Pack years: 4.50 Types: Cigarettes Quit date: 11/08/1994 Years since quittin.4 Smokeless tobacco: Never Tobacco comments: smoked 3 years in mid 90s Vaping Use Vaping Use: Never used Substance Use Topics Alcohol use: No Drug use: No Review of Symptoms REVIEW OF SYSTEMS GENERAL: No malaise or fevers. Patient had weight loss with the pancreatic insuffiencey. HEENT: Negative for frequent or significant headaches, No changes in vision, no nose bleeds or other nasal problems. Hearing has decreased mainly the right NECK: Negative for lumps, goiter, pain and significant neck swelling RESPIRATORY: Negative for cough, hemoptysis, wheezing, COPD, dyspnea or shortness of breath CARDIOVASCULAR: Negative for chest pain, leg swelling, hypertension, CHF or palpitations GI: No nausea, vomiting, or diarrhea, No heartburn or reflux symptoms, and no blood : No history of dysuria,blood MUSCULOSKELETAL: slight bilateral knee pain. SKIN: Negative for lesions, rash, and itching PSYCH: Negative for sleep disturbance, mood disorder and recent psychosocial stressors HEMATOLOGY/LYMPHOLOGY: Negative for prolonged bleeding, bruising easily or swollen nodes ENDOCRINE: Negative for cold or heat intolerance. Has an occasional low BS's NEURO: No history of headaches, syncope, paralysis, seizures or tremors EXAM: BP 128/84 (BP Site: Left Arm, BP Position: Sitting, BP Cuff Size: Regular Adult) Pulse 70 Resp 16 Ht 157.5 cm (5' 2 ) Wt 60.3 kg (133 lb) BMI 24.33 kg/m General Appearance: Well appearing, alert, in no acute distress, well-hydrated, well nourished.. Skin: Skin color, texture, turgor normal, no suspicious rashes or lesions. Head: Normocephalic, no masses, lesions, tenderness or abnormalities. Eyes: Anicteric sclera. Pupils are equally round and reactive to light. Extraocular movements are intact. . Ears: External ears, TM's normal, canals clear. Nose/Sinuses: Nares normal, septum midline, mucosa normal, no drainage or sinus tenderness. Oropharynx: Lips, mucosa, and tongue normal, teeth and gums normal, oropharynx normal. Neck: Supple, no adenopathy; thyroid symmetric, normal size, no bruits. Lungs: Lungs clear to auscultation. No wheezing, rhonchi, rales.. Heart: RRR without murmur, gallop, or rubs. No ectopy. Abdomen: Normal abdominal exam, Abdomen soft, non-tender. Bowel sounds normal. No masses, organomegaly. Extremities: No deformities, edema, skin discoloration, clubbing or cyanosis. Good capillary refill. . Musculoskeletal: Muscular strength intact, No joint swelling, deformity, or tenderness. Peripheral Pulses: Normal. Neurologic: Gait normal. Reflexes normal and symmetric. Sensation to light touch and crainal nerves 2-12 intact.. Diabetic Foot Exam: Feet: Shoes and socks removed, no deformities, ulcers, calluses, normal distal pulses, sensitive to 10 gm microfilament, and vibratory exam within normal limits Skin: warm, dry, and no callouses or ulcer Vascular Pulses: Normal SEMMES-ARGELIA MONOFILAMENT TESTING Left Foot Right Foot Dorsal Surface Intact Dorsal Surface Intact Plantar Surface Intact Plantar Surface Intact Health Maintenance List ADVANCE DIRECTIVE DISCUSSION Never done DEPRESSION ASSESSMENT due on 11/08/2022 BP CONTROLLED (<130/80) due on 04/03/2023 DIABETIC FOOT EXAM due on 04/03/2023 DILATED RETINAL EXAM due on 05/30/2023 HBA1C due on 10/03/2023 ANNUAL PCP TEAM CHRONIC DISEASE VISIT due on 02/10/2024 DTAP,TDAP,TD(2 - Td or Tdap) due on 02/24/2024 MAMMOGRAM due on 02/25/2024 URINE ALBUMIN:CREATININE RATIO due on 04/02/2024 LDL CHOLESTEROL due on 04/02/2024 COLORECTAL CANCER SCREENING due on 08/09/2028 BONE DENSITY Completed HEPATITIS C SCREENING Completed SHINGRIX VACCINE Completed COVID-19 VACCINE Completed PNEUMOCOCCAL: 65+ Completed INFLUENZA Discontinued HIV SCREENING Discontinued Data reviewed Component Latest Ref Rng & Units 03/30/2022 09/15/2022 04/02/2023 WBC 3.70 - 11.00 k/uL 4.78 4.97 RBC 3.90 - 5.20 m/uL 4.39 4.27 Hemoglobin 11.5 - 15.5 g/dL 13.7 13.3 Hematocrit 36.0 - 46.0 % 40.6 40.3 MCV 80.0 - 100.0 fL 92.5 94.4 MCH 26.0 - 34.0 pg 31.2 31.1 MCHC 30.5 - 36.0 g/dL 33.7 33.0 RDW-CV 11.5 - 15.0 % 13.7 13.6 Platelet Count 150 - 400 k/uL 197 166 MPV 9.0 - 12.7 fL 9.0 9.8 Neut% % 58.8 62.6 Abs Neut (ANC) 1.45 - 7.50 k/uL 2.81 3.11 Lymph% % 29.9 27.4 Abs Lymph 1.00 - 4.00 k/uL 1.43 1.36 Petroleum% % 9.4 8.0 Abs Petroleum <0.87 k/uL 0.45 0.40 Eosin% % 1.3 1.4 Abs Eosin <0.46 k/uL 0.06 0.07 Baso% % 0.4 0.4 Abs Baso <0.11 k/uL <0.03 <0.03 Immature Gran % % 0.2 0.2 IMMATURE GRANS (ABS) <0.10 k/uL <0.03 <0.03 NRBC /100 WBC 0.0 0.0 Absolute nRBC <0.01 k/uL <0.01 <0.01 DTYPE Auto Auto Protein, Total 6.3 - 8.0 g/dL 7.0 6.7 Albumin 3.9 - 4.9 g/dL 4.2 4.1 Calcium 8.5 - 10.2 mg/dL 8.8 9.4 Bilirubin, Total 0.2 - 1.3 mg/dL 0.3 0.3 Alkaline Phosphatase 34 - 123 U/L 38 41 AST 13 - 35 U/L 22 20 ALT 7 - 38 U/L 20 14 Glucose 74 - 99 mg/dL 116 (H) 141 (H) BUN 7 - 21 mg/dL 18 18 Creatinine 0.58 - 0.96 mg/dL 0.86 0.87 Sodium 136 - 144 mmol/L 139 141 Potassium 3.7 - 5.1 mmol/L 3.9 4.0 Chloride 97 - 105 mmol/L 102 102 CO2 22 - 30 mmol/L 25 31 (H) Anion Gap 9 - 18 mmol/L 12 8 (L) eGFR >=60 mL/min/1.73m 76 74 Color Yellow Light Yellow Clarity Clear Clear Glucose, Urine Trace, Negative Negative Bilirubin, Urine Negative Negative Ketones, Urine Trace, Negative Negative Specific [place], Ur 1.005 - 1.030 1.017 Hemoglobin/Blood,Ur Negative, Trace Negative pH, Urine 5.0 - 8.0 6.0 Protein, Urine Trace, Negative Negative Urobilinogen Negative Negative Nitrites Negative Negative Leukest Negative, 25 Yung/uL 250 Yung/uL (A) WBC, Urine 0-5 /HPF 6-10 /HPF (A) RBC, Urine 0-3 /HPF 0-3 /HPF Epithelial Cells /HPF Few Budding Yeast None Seen /HPF Few (A) Total Cholesterol, Nonfasting <200 mg/dL 146 154 138 Triglycerides, Nonfasting <150 mg/dL 152 (H) 164 (H) 100 HDL Cholesterol, Nonfasting >39 mg/dL 28 (L) 31 (L) 38 (L) LDL Cholesterol, Nonfasting <100 mg/dL 88 90 80 Non HDL Cholesterol, Nonfasting <130 mg/dL 118 123 100 VLDL Cholesterol, Nonfasting <30 mg/dL 30 (H) 33 (H) 20 Total Chol/HDL Ratio, Nonfasting <5.10 mg/dL 5.21 (H) 4.97 3.63 LDL/HDL Ratio, Nonfasting <2.54 mg/dL 3.14 (H) 2.90 (H) 2.11 Creatinine, Ur Random (UCRR) 20.0 - 300.0 mg/dL 59.9 99.7 Albumin, Urine Random mg/L <12.0 <12.0 Albumin/Creat Ratio <30 mg/g <20 <12 Hemoglobin A1C 4.3 - 5.6 % 6.6 (H) 6.0 (H) 6.3 (H) Estimated Average Glucose mg/dL 143 126 134 Vitamin D 25 Hydroxy 31.0 - 80.0 ng/mL 34.8 33.6 Lipase 16 - 61 U/L 101 (H) Amylase 30 - 104 U/L 70 A/P ASSESSMENT/PLAN: 1. Encounter for Medicare annual wellness exam - ICD9: V70.0, ICD10: Z00.00 (primary diagnosis) - Counseled on healthy diet and regular exercise - Calcium intake with supplements or by diet of 1000 mg/day for under 50, 0822-8060 mg/day for 50+ - Follow up for annual exam in one year 2. Controlled type 2 diabetes mellitus without complication, without long-term current use of insulin (HCC) - ICD9: 250.00, ICD10: E11.9 - Controlled - Continue current medications - Counseled on healthy diet and regular exercise 3. Diabetic eye exam (HCC) - ICD9: V72.0, 250.00, ICD10: Z01.00, E11.9 - up to date 4. Essential hypertension - ICD9: 401.9, ICD10: I10 - Controlled - Continue current medications - Recommend home blood pressure monitoring, to bring results to next visit - Encouraged sodium restriction, DASH or Mediterranean diet - Recommend regular aerobic exercise 5. Mixed hyperlipidemia - ICD9: 272.2, ICD10: E78.2 - Controlled - Continue current medications - Counseled on healthy diet and regular exercise 6. 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) - ICD9: 414.01, 413.9, ICD10: I25.118 - clinically stable. Management per cardio. 7. History of transient ischemic attack (TIA) - ICD9: V12.54, ICD10: Z86.73 - clinically sable no changes. 8. Obstructive sleep apnea on CPAP - ICD9: 327.23, V46.8, ICD10: G47.33, Z99.89 - cont CPAP and f/u with sleep Med, Dr. Olmstead 9. Seasonal allergies - ICD9: 477.9, ICD10: J30.2 - seeing Dr. Olmstead 10. Vitamin D deficiency - ICD9: 268.9, ICD10: E55.9 - cont replacement 11. Narcolepsy without cataplexy - ICD9: 347.00, ICD10: G47.419 - seeing sleep Med 12. Ductal carcinoma in situ (DCIS) of left breast - ICD9: 233.0, ICD10: D05.12 - management per oncology 13. RLS (restless legs syndrome) - ICD9: 333.94, ICD10: G25.81 - management per sleep med. 14. Pancreatic insufficiency - ICD9: 577.8, ICD10: K86.89 - management per Gastro 15. Advance directive discussed with patient - ICD9: V65.49, ICD10: Z71.89 - up to date. Requested Prescriptions Signed Prescriptions Disp Refills ezetimibe (ZETIA) 10 mg tablet 90 tablet 1 Sig: Take 1 tablet by mouth once daily. hydroCHLOROthiazide 25 mg tablet 90 tablet 1 Sig: Take 1 tablet by mouth once daily. metFORMIN (GLUCOPHAGE) 500 mg tablet 360 tablet 1 Sig: Take 2 tablets by mouth twice daily with meals. omeprazole (PRILOSEC) 40 mg capsule 30 capsule 5 Sig: Take 1 capsule by mouth once daily. F/u 6 months routine check A1c and lipid prior. I spent a total of 40 minutes on the date of the service which included preparing to see the patient, [id number] patient care, completing clinical documentation, performing a medically appropriate examination, counseling and educating the patient/family/caregiver and ordering medications, tests, or procedures. Clifton Hung MD documented in this encounter [facility] 04-02-2023 Note HNO ID: [id number] Author: Latrice Dunn LPN Service: ? Author Type: ? Type: Progress Notes Filed: 04/02/2023 3:04 PM Note Text: Scan on 04/01/2023 3:04 PM by External Provider, KELLY: Consultation - GI [facility] 02-26-2023 Note HNO ID: [id number] Author: 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 APRN.ELIZABETH Service: ? Author Type: Nurse Practitioner Type: Progress Notes Filed: 02/26/2023 10:18 AM Note Text: Chief Complaint Patient presents with: Established Patient HPI: Luz Marina Avila is a 67 year old female who presents here today for follow up DCIS. Per Dr. Georges previous note: H/o [id number] diabetes mellitus, hypertension, ASCAD, and TIA who presented with an abnormal mammogram. She denies palpable discrete masses, but she notes lumpy breast. She denies nipple discharge. She denies previous breast biopsies. She denies previous breast surgeries. She notes occasional twinges of pain of her chest wall. She notes no breast or ovarian cancer in her family, mother of pancreatic cancer at age 59 and brother of lung cancer at age 58. She had a partial hysterectomy in her late 30s She is not on controls or estrogen replacement therapy Mammograms on 03/11/2021 There are a grouped pleomorphic calcifications in the left breast at 1 o'clock posterior depth. No other significant masses or calcifications are seen in the breast. IMPRESSION: SUSPICIOUS FINDING - BIOPSY SHOULD BE CONSIDERED The grouped pleomorphic calcifications in the left breast are suspicious of malignancy. A stereotactic biopsy is recommended. left stereotactic breast biopsy done on 11/15/2020. Findings of ductal carcinoma in situ Estrogen progesterone receptors positive ( >95%); HER-2/brandin negative (0) left breast lumpectomy for DCIS on 04/08/2021 at [facility] Pathology (from [facility]) reveals - ductal carcinoma in situ...,size of DCIS - 1.0 x 0.4 cm...,architectural type - cribriform..., nuclear grade 1-2..., necrosis - present central (expansive comedo necrosis)..., biopsy cavity is 0.5 cm from closest anterior margin (which is skin)..., ER >95%, AK >95% Postoperative course is unremarkable with no swelling or pain in her lumpectomy site. She is here today to discuss adjuvant therapy and chemoprevention for breast cancer. RADIATION:06/03/21 - 06/24/21 Current therapy:Tamoxifen Began after radiation Followed by GI. She is following a strict diet and is taking creon-feeling so much better. Appetite: Good. Avoiding carbs and sugars. Energy level: Good. Denies fevers. Recent sinus infection. Resp:denies cough or sob-follow up by [facility] h/o seasonal allergies/sleep apnea-wears CPAP at hs Cardiac:denies chest pain/palpitations-Followed by cardiology twice yearly GI:denies abd pain, n/v, h/o IBS, occ. constipation-followed by Dr. Alcantar/GI :denies dysuria/hematuria Extrem:denies pain Endo:denies hot flashes Neuro:denies symptoms of neuropathy Skin:denies rashes/lesions Heme:denies bleeding, up to date on [employer] exam-next due next 2023 The ROS is otherwise negative. Past medical history, appointments, medications, allergies reviewed. No changes. EXAM: BP 132/70 Pulse 82 Temp 36.2 ?C (97.1 ?F) Ht 158 cm (5' 2.21 ) Wt 61.7 kg (136 lb) SpO2 100% BMI 24.71 kg/m? APPEARANCE Well appearing, alert, in no acute distress, well-hydrated, well nourished. HEART RRR with normal S1 and S2, no murmurs LUNG clear to auscultation BREAST FEMALE no mass/nodule b/l, L scar to upper/radiation changes LYMPH NODES No cervical lymphadenopathy, No supraclavicular lymphadenopathy, and No axillary lymphadenopathy. ABDOMEN bowel sounds normoactive, soft, non-tender EXTREMITIES No edema NEURO Awake, alert and oriented x 3, Normal gait, and No involuntary motions. SKIN Skin color, texture, turgor normal, no suspicious rashes or lesions RADIOLOGY: Mammogram 02/24/23: IMPRESSION: BENIGN FINDING There is no mammographic evidence of malignancy. A 1 year screening mammogram is recommended. ASSESSMENT/PLAN: 1. Ductal carcinoma in situ (DCIS) of left breast - ICD9: 233.0, ICD10: D05.12 - No new concerning findings on exam. - Reviewed mammogram with pt. - Mammogram due February 2024. - Continue tamoxifen. - Continue follow up with PCP/GI/Cards. - Follow up in 6 months. - Pt. aware to call office with any questions/concerns. The patient indicates understanding of these issues and agrees with the plan. All documentation from previous visit of 08/28/22-Dr. Georges/myself was copied and pasted, documentation has been reviewed and edited as necessary for today's visit. 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 APRN.[facility] 02-26-2023 History of Present illness Narrative Chief Complaint Patient presents with: Established Patient HPI: Luz Marina Avila is a 67 year old female who presents here today for follow up DCIS. Per Dr. Georges previous note: H/o [id number] diabetes mellitus, hypertension, ASCAD, and TIA who presented with an abnormal mammogram. She denies palpable discrete masses, but she notes lumpy breast. She denies nipple discharge. She denies previous breast biopsies. She denies previous breast surgeries. She notes occasional twinges of pain of her chest wall. She notes no breast or ovarian cancer in her family, mother of pancreatic cancer at age 59 and brother of lung cancer at age 58. She had a partial hysterectomy in her late 30s She is not on controls or estrogen replacement therapy Mammograms on 03/11/2021 There are a grouped pleomorphic calcifications in the left breast at 1 o'clock posterior depth. No other significant masses or calcifications are seen in the breast. IMPRESSION: SUSPICIOUS FINDING - BIOPSY SHOULD BE CONSIDERED The grouped pleomorphic calcifications in the left breast are suspicious of malignancy. A stereotactic biopsy is recommended. left stereotactic breast biopsy done on 11/15/2020. Findings of ductal carcinoma in situ Estrogen progesterone receptors positive ( >95%); HER-2/brandin negative (0) left breast lumpectomy for DCIS on 04/08/2021 at [facility] Pathology (from [facility]) reveals - ductal carcinoma in situ...,size of DCIS - 1.0 x 0.4 cm...,architectural type - cribriform..., nuclear grade 1-2..., necrosis - present central (expansive comedo necrosis)..., biopsy cavity is 0.5 cm from closest anterior margin (which is skin)..., ER >95%, AK >95% Postoperative course is unremarkable with no swelling or pain in her lumpectomy site. She is here today to discuss adjuvant therapy and chemoprevention for breast cancer. RADIATION:06/03/21 - 06/24/21 Current therapy:Tamoxifen Began after radiation Followed by GI. She is following a strict diet and is taking creon-feeling so much better. Appetite: Good. Avoiding carbs and sugars. Energy level: Good. Denies fevers. Recent sinus infection. Resp:denies cough or sob-follow up by PULM h/o seasonal allergies/sleep apnea-wears CPAP at hs Cardiac:denies chest pain/palpitations-Followed by cardiology twice yearly GI:denies abd pain, n/v, h/o IBS, occ. constipation-followed by Dr. Alcantar/GI :denies dysuria/hematuria Extrem:denies pain Endo:denies hot flashes Neuro:denies symptoms of neuropathy Skin:denies rashes/lesions Heme:denies bleeding, up to date on [employer] exam-next due next 2023 The ROS is otherwise negative. Past medical history, appointments, medications, allergies reviewed. No changes. EXAM: BP 132/70 Pulse 82 Temp 36.2 C (97.1 F) Ht 158 cm (5' 2.21 ) Wt 61.7 kg (136 lb) SpO2 100% BMI 24.71 kg/m APPEARANCE Well appearing, alert, in no acute distress, well-hydrated, well nourished. HEART RRR with normal S1 and S2, no murmurs LUNG clear to auscultation BREAST FEMALE no mass/nodule b/l, L scar to upper/radiation changes LYMPH NODES No cervical lymphadenopathy, No supraclavicular lymphadenopathy, and No axillary lymphadenopathy. ABDOMEN bowel sounds normoactive, soft, non-tender EXTREMITIES No edema NEURO Awake, alert and oriented x 3, Normal gait, and No involuntary motions. SKIN Skin color, texture, turgor normal, no suspicious rashes or lesions RADIOLOGY: Mammogram 02/24/23: IMPRESSION: BENIGN FINDING There is no mammographic evidence of malignancy. A 1 year screening mammogram is recommended. ASSESSMENT/PLAN: 1. Ductal carcinoma in situ (DCIS) of left breast - ICD9: 233.0, ICD10: D05.12 - No new concerning findings on exam. - Reviewed mammogram with pt. - Mammogram due February 2024. - Continue tamoxifen. - Continue follow up with PCP/GI/Cards. - Follow up in 6 months. - Pt. aware to call office with any questions/concerns. The patient indicates understanding of these issues and agrees with the plan. All documentation from previous visit of 08/28/22-Dr. Georges/myself was copied and pasted, documentation has been reviewed and edited as necessary for today's visit. 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 APRN.CNP documented in this encounter [facility] 02-24-2023 Note HNO ID: [id number] Author: RT Eugene(R) Service: ? Author Type: Neonatal Doctor Type: Progress Notes Filed: 02/24/2023 9:17 AM Note Text: Radiology Service Progress Note PATIENT NAME: Luz Marina Avila DATE OF SERVICE: February 24, 2023 TIME: 9:16 AM PATIENT IDENTITY VERIFICATION COMPLETED USING TWO (2) IDENTIFIERS: Name and Date of confirmed by patient verbally. FALL SCREENING: Has the patient had 2 falls in the last year or 1 fall with injury or currently using an Ambulatory Assistive Device (Walker, Cane, Wheelchair, Crutches, etc.)? No PATIENT GENDER DATA: Female. status: : No status: NO. PATIENT RELEVANT IMPLANT DATA REVIEWED: Not Applicable RADIOLOGY DEPARTMENT: Mammography PERIPHERAL IV DATA: Not applicable SIGNED BY: RT Eugene(R) February 24, 2023 9:16 AM Radiology Service Progress Note PATIENT NAME: Luz Marina Avila DATE OF SERVICE: February 24, 2023 TIME: 9:16 AM PATIENT IDENTITY VERIFICATION COMPLETED USING TWO (2) IDENTIFIERS: Name and Date of confirmed by patient verbally. FALL SCREENING: Has the patient had 2 falls in the last year or 1 fall with injury or currently using an Ambulatory Assistive Device (Walker, Cane, Wheelchair, Crutches, etc.)? No PATIENT GENDER DATA: Female. status: : No status: NO. PATIENT RELEVANT IMPLANT DATA REVIEWED: Not Applicable RADIOLOGY DEPARTMENT: Mammography PERIPHERAL IV DATA: Not applicable SIGNED BY: RT Eugene(R) February 24, 2023 9:16 AM [facility] 02-24-2023 History of Present illness Narrative Radiology Service Progress Note PATIENT NAME: Luz Marina Avila DATE OF SERVICE: February 24, 2023 TIME: 9:16 AM PATIENT IDENTITY VERIFICATION COMPLETED USING TWO (2) IDENTIFIERS: Name and Date of confirmed by patient verbally. FALL SCREENING: Has the patient had 2 falls in the last year or 1 fall with injury or currently using an Ambulatory Assistive Device (Walker, Cane, Wheelchair, Crutches, etc.)? No PATIENT GENDER DATA: Female. status: : No status: NO. PATIENT RELEVANT IMPLANT DATA REVIEWED: Not Applicable RADIOLOGY DEPARTMENT: Mammography PERIPHERAL IV DATA: Not applicable SIGNED BY: RT Eugene(R) February 24, 2023 9:16 AM Radiology Service Progress Note PATIENT NAME: Luz Marina Avila DATE OF SERVICE: February 24, 2023 TIME: 9:16 AM PATIENT IDENTITY VERIFICATION COMPLETED USING TWO (2) IDENTIFIERS: Name and Date of confirmed by patient verbally. FALL SCREENING: Has the patient had 2 falls in the last year or 1 fall with injury or currently using an Ambulatory Assistive Device (Walker, Cane, Wheelchair, Crutches, etc.)? No PATIENT GENDER DATA: Female. status: : No status: NO. PATIENT RELEVANT IMPLANT DATA REVIEWED: Not Applicable RADIOLOGY DEPARTMENT: Mammography PERIPHERAL IV DATA: Not applicable SIGNED BY: RT Eugene(R) February 24, 2023 9:16 AM documented in this encounter [facility] 02-22-2023 Note HNO ID: [id number] Author: Latrice Dunn LPN Service: ? Author Type: ? Type: Progress Notes Filed: 02/22/2023 3:01 PM Note Text: Scan on 02/22/2023 12:59 PM by External Provider: Consultation - Neurology [facility] 02-22-2023 History of Present illness Narrative Scan on 02/22/2023 12:59 PM by External Provider: Consultation - Neurology documented in this encounter [facility] 02-19-2023 Note HNO ID: [id number] Author: Latrice Dunn LPN Service: ? Author Type: ? Type: Progress Notes Filed: 02/21/2023 2:20 PM Note Text: Scan on 02/18/2023 12:54 PM by External Provider: Consultation - Cardiology [facility] 02-19-2023 History of Present illness Narrative Scan on 02/18/2023 12:54 PM by External Provider: Consultation - Cardiology documented in this encounter [facility] 02-09-2023 Note HNO ID: [id number] Author: Cherise Sifuentes PA-C Service: ? Author Type: Physician Audio Visual Arts Director Type: Progress Notes Filed: 02/09/2023 1:27 PM Note Text: Chief Complaint Patient presents with: Cough: congestion HPI Luz Marina Avila is a 67 year old female who presents here today for Above Complaints.. Patient has had URI symptoms since 01/31/23. Was seen in express care on 02/05. She feels like she is getting worse. Has not had any improvement. Cough is keeping her up at night. Using OTC cough medication. Using PERLEs as well which help some. +sinus pressure. +sore throat Denies shortness of breath or wheezing No chest pain. Past medical history, appointments, medications, allergies reviewed. 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 Colon polyp 2011 Controlled type 2 diabetes mellitus without complication, without long-term current use of insulin ([facility]) 10/22/2016 De Quervain's tenosynovitis, left 07/31/2019 Diabetic eye exam (HCC) 01/16/2016 Lat done: 12/03/2017 No retinopathy Ductal carcinoma in situ (DCIS) of left breast 05/26/2021 Ductal carcinoma in situ of left breast 04/2021 Essential hypertension 01/16/2016 Female pattern hair loss Foot callus 05/26/2021 History of colon polyps History of depression when History of hyperparathyroidism History of transient ischemic attack (TIA) 10/29/2017 06/29/2017 - R homonomous hemianopia with aphasia for couple hours - negative MRI/A following day Irritable bowel syndrome with diarrhea 05/26/2021 Meniere disease, right 10/29/2017 Mixed hyperlipidemia 05/31/2009 statin intolerance Narcolepsy without cataplexy 01/16/2016 Especially with long drives. Has been on provigil for 5-10 yrs Obstructive sleep apnea on CPAP Sibilia Psoriasis Rosacea with ocular symptoms S/P angioplasty with stent 01/09/2017 stents to mid and proximal left anterior descending Art, and angio of ostium of #2 diagonal Scalp itch Seasonal allergies Dr Pompa Vitamin D deficiency 2013 Well adult exam 01/16/2016 Last done: 09/08/2018 Previous Surgical History PAST SURGICAL HISTORY Procedure Laterality Date 2D ECHO (EXEP) 06/30/2017 EF=65%, trivial HI, TI and 1+ PI Unchanged from 04/2017 2D ECHO (EXEP) 05/14/2021 EF=60%, 1+ TI, trival HI, AI, PI 2D ECHO (EXEP) 09/16/2021 EF=60%, no significant valve disease BREAST LUMPECTOMY HX Left 04/08/2021 BUNIONECTOMY, [place]-TYPE 2010 left great toe BX BREAST W/DEVICE 1ST LESION STEREOTACTIC GUID Left 03/25/2021 DELIVERY ONLY CHOLECYSTECTOMY 2004 Cholecystectomy COLONOSCOPY 08/07/2015 no polyps, recheck 3-5 yrs COLONOSCOPY AND POLYPECTOMY 10/12, 10/13 Dr Avila; hyperplastic polyps COLONOSCOPY FLX DX W/COLLJ SPEC WHEN PFRMD 08/09/2018 Colonoscopy ESOPHAGOGASTRODUODENOSCOPY TRANSORAL DIAGNOSTIC 08/09/2018 EGD HEART CATHETERIZATION 2004 heart cath-normal per patient HEART CATHETERIZATION 01/04/2017 EF=60%, left anterior desending septal perferator 95-99% stenosis and diagonal branch 85% stenosis, HEART CATHETERIZATION 10/2018 HEART SURGERY HX 12/2016 Cardiac stents x 2 LOW BACK DISK SURGERY 2010 microdecompression L4 L5 MASTECTOMY, PARTIAL Left 04/08/2021 PAST SURGICAL HISTORY OF 2004 parathyroidectomy x1 PAST SURGICAL HISTORY OF lipoma x2 PAST SURGICAL HISTORY OF 10/2006 left foot surgery (bone cyst in heel, removed) PAST SURGICAL HISTORY OF 2014 bilateral carpel tunnel PAST SURGICAL HISTORY OF Right 10/2016 trigger finger release x2 STENT PLACEMENT 01/06/2017 stents to mid and proximal left anterior descending Art, and angio of ostium of #2 diagonal STRESS TEST 04/20/2017 WNL TOTAL ABDOMINAL HYSTERECT W/WO RMVL TUBE OVARY 1995 LEDA for benign fibroid, ovaries intact Family History FAMILY HISTORY Problem Relation Age of Onset other (Pancreatic cancer) Mother Coronary Artery Disease Father 25 HI @ 25. CABG Diabetes Father Diabetes Paternal Grandmother Diabetes Maternal Grandfather other (Lung cancer) Brother other (suicide) Son may of been depression Patient Allergies ALLERGIES Allergen Reactions Brilinta [Ticagrelo* Shortness of Breath Crestor [Rosuvastat* Myalgia Keflex [Cephalexin] Other: See Comments facial flushing Lipitor [Atorvastat* Other: See Comments myalgia Lovastatin Other: See Comments myalgia Delphos [Hydrocodone-* Itching Current Medications Current Outpatient Medications on File Prior to Visit Medication Sig tamoxifen (NOLVADEX) 20 mg tablet Take 1 tablet (20 mg) by mouth once daily. benzonatate (TESSALON PERLE) 100 mg capsule Take 2 (more content not included)... [facility] 02-09-2023 History of Present illness Narrative Chief Complaint Patient presents with: Cough: congestion HPI Luz Marina Avila is a 67 year old female who presents here today for Above Complaints.. Patient has had URI symptoms since 01/31/23. Was seen in [facility] care on 02/05. She feels like she is getting worse. Has not had any improvement. Cough is keeping her up at night. Using OTC cough medication. Using PERLEs as well which help some. +sinus pressure. +sore throat Denies shortness of breath or wheezing No chest pain. Past medical history, appointments, medications, allergies reviewed. 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 Has been on provigil for 5-10 yrs Obstructive sleep apnea on CPAP Sibilia Psoriasis Rosacea with ocular symptoms S/P angioplasty with stent 01/09/2017 stents to mid and proximal left anterior descending Art, and angio of ostium of #2 diagonal Scalp itch Seasonal allergies Dr Pompa Vitamin D deficiency 2012 Well adult exam 01/16/2016 Last done: 09/08/2018 Previous Surgical History PAST SURGICAL HISTORY Procedure Laterality Date 2D ECHO (EXEP) 06/30/2017 EF=65%, trivial HI, TI and 1+ PI Unchanged from 04/2017 2D ECHO (EXEP) 05/14/2021 EF=60%, 1+ TI, trival HI, AI, PI 2D ECHO (EXEP) 09/16/2021 EF=60%, no significant valve disease BREAST LUMPECTOMY HX Left 04/08/2021 BUNIONECTOMY, [place]-TYPE 2010 left great toe BX BREAST W/DEVICE 1ST LESION STEREOTACTIC GUID Left 03/25/2021 DELIVERY ONLY CHOLECYSTECTOMY 2004 Cholecystectomy COLONOSCOPY 08/07/2015 no polyps, recheck 3-5 yrs COLONOSCOPY & POLYPECTOMY 10/12, 10/13 Dr Avila; hyperplastic polyps COLONOSCOPY FLX DX W/COLLJ SPEC WHEN PFRMD 08/09/2018 Colonoscopy ESOPHAGOGASTRODUODENOSCOPY TRANSORAL DIAGNOSTIC 08/09/2018 EGD HEART CATHETERIZATION 2004 heart cath-normal per patient HEART CATHETERIZATION 01/04/2017 EF=60%, left anterior desending septal perferator 95-99% stenosis and diagonal branch 85% stenosis, HEART CATHETERIZATION 10/2018 HEART SURGERY HX 12/2016 Cardiac stents x 2 LOW BACK DISK SURGERY 2010 microdecompression L4 L5 MASTECTOMY, PARTIAL Left 04/08/2021 PAST SURGICAL HISTORY OF 2004 parathyroidectomy x1 PAST SURGICAL HISTORY OF lipoma x2 PAST SURGICAL HISTORY OF 10/2006 left foot surgery (bone cyst in heel, removed) PAST SURGICAL HISTORY OF 2014 bilateral carpel tunnel PAST SURGICAL HISTORY OF Right 10/2016 trigger finger release x2 STENT PLACEMENT 01/06/2017 stents to mid and proximal left anterior descending Art, and angio of ostium of #2 diagonal STRESS TEST 04/20/2017 WNL TOTAL ABDOMINAL HYSTERECT W/WO RMVL TUBE OVARY 1995 LEDA for benign fibroid, ovaries intact Family History FAMILY HISTORY Problem Relation Age of Onset other (Pancreatic cancer) Mother Coronary Artery Disease Father 25 HI @ 25. CABG Diabetes Father Diabetes Paternal Grandmother Diabetes Maternal Grandfather other (Lung cancer) Brother other (suicide) Son may of been depression Patient Allergies ALLERGIES Allergen Reactions Brilinta [Ticagrelo* Shortness of Breath Crestor [Rosuvastat* Myalgia Keflex [Cephalexin] Other: See Comments facial flushing Lipitor [Atorvastat* Other: See Comments myalgia Lovastatin Other: See Comments myalgia Delphos [Hydrocodone-* Itching Current Medications Current Outpatient Medications on File Prior to Visit Medication Sig tamoxifen (NOLVADEX) 20 mg tablet Take 1 tablet (20 mg) by mouth once daily. benzonatate (TESSALON PERLE) 100 mg capsule Take 2 capsules by mouth three times daily as needed. ezetimibe (ZETIA) 10 mg tablet Take 1 tablet by mouth once daily. hydroCHLOROthiazide (HYDRODIURIL, ESIDRIX) 25 mg tablet Take 1 tablet by mouth once daily. dulaglutide (TRULICITY) 3 mg/0.5 mL pen injector Inject 3 mg subcutaneously one time a week. metFORMIN (GLUCOPHAGE) 500 mg tablet Take 2 tablets by mouth twice daily with meals. cyclobenzaprine (FLEXERIL) 10 mg tablet Take 1 tablet by mouth three times daily as needed for muscle spasm. omeprazole (PRILOSEC) 40 mg capsule Take 1 capsule by mouth once daily. potassium chloride SR (MICRO-K) 10 mEq CR capsule Take 2 capsules by mouth twice daily. ammonium lactate (LAC-HYDRIN) 12 % lotion Apply 1 application to affected area twice daily as needed. Clobetasol Propionate 0.05 % gel Apply 1 application to affected area as needed. doxycycline monohydrate (MONODOX) 50 mg capsule Take 50 mg by mouth as needed. calcium citrate/vitamin D3 (CALCIUM CITRATE + D ORAL) Take 1 tablet by mouth once daily. acetaminophen (TYLENOL) 500 mg tablet Take 1,000 mg by mouth every 8 hours as needed. nitroglycerin sublingual (NITROQUICK) 0.4 mg SL tablet Dissolve 1 tablet under the tongue every 5 minutes as needed for Chest Pain. ketoconazole (NIZORAL) 2 % shampoo Apply 1 application to affected area once daily as needed. MAGNESIUM SULFATE ORAL Take 500 mg by mouth once daily. montelukast (SINGULAIR) 10 mg tablet Take 10 mg by mouth daily at bedtime. metoprolol succinate ER (TOPROL XL) 25 mg 24 hr tablet Take 1 tablet by mouth twice daily. Per Dr. Gomez lisinopril (ZESTRIL, PRINIVIL) 5 mg tablet Take 1 tablet by mouth once daily. LACTOBACILLUS ACIDOPHILUS (PROBIOTIC ORAL) Take 1 tablet by mouth once daily. CPAP No current facility-administered medications on file prior to visit. Social History Social History Tobacco Use Smoking status: Former Packs/day: 1.50 Years: 3.00 Pack years: 4.50 Types: Cigarettes Quit date: 11/08/1994 Years since quittin.2 Smokeless tobacco: Never Tobacco comments: smoked 3 years in mid 90 Vaping Use Vaping Use: Never used Substance Use Topics Alcohol use: No Drug use: No Review of Symptoms REVIEW OF SYSTEMS See HPI EXAM: BP 122/78 (BP Site: Right Arm, BP Position: Sitting, BP Cuff Size: Regular Adult) Pulse 80 Temp 37.1 C (98.7 F) Resp 18 Wt 61.7 kg (136 lb) BMI 23.80 kg/m General Appearance: Well appearing, alert, in no acute distress, well-hydrated, well nourished.. Ears: External ears normal, canals clear, TMs pearly berry. Nose/Sinuses: Nares normal, septum midline, mucosa normal, no drainage or sinus tenderness. Oropharynx: Lips, mucosa, and tongue normal, teeth and gums normal, oropharynx normal. Neck: Supple, no adenopathy; thyroid symmetric, normal size, no bruits. Lungs: Lungs clear to auscultation. No wheezing, rhonchi, rales.. Heart: RRR without murmur, gallop, or rubs. No ectopy. Health Maintenance List ADVANCE DIRECTIVE DISCUSSION Never done DEPRESSION ASSESSMENT due on 11/08/2022 MAMMOGRAM due on 02/23/2023 HBA1C due on 03/15/2023 URINE ALBUMIN:CREATININE RATIO due on 03/30/2023 DIABETIC FOOT EXAM due on 04/03/2023 DILATED RETINAL EXAM due on 05/30/2023 LDL CHOLESTEROL due on 09/15/2023 ANNUAL PCP TEAM CHRONIC DISEASE VISIT due on 10/05/2023 BP CONTROLLED (<130/80) due on 02/06/2024 DTAP,TDAP,TD(2 - Td or Tdap) due on 02/24/2024 COLORECTAL CANCER SCREENING due on 08/09/2028 BONE DENSITY Completed HEPATITIS C SCREENING Completed SHINGRIX VACCINE Completed COVID-19 VACCINE Completed PNEUMOCOCCAL: 65+ Completed INFLUENZA Discontinued HIV SCREENING Discontinued Data reviewed ASSESSMENT/PLAN: 1. Bacterial sinusitis - ICD9: 473.9, 041.9, ICD10: J32.9, B96.89 Will start atb. Follow up if worsening. Can use mucinex prn. Cherise Sifuentes PA-C documented in this encounter [facility] 02-08-2023 Miscellaneous Notes Patient has been identified by name and date of : Yes Requested Prescriptions Pending Prescriptions Disp Refills tamoxifen (NOLVADEX) 20 mg tablet 90 tablet 3 Sig: Take 1 tablet (20 mg) by mouth once daily. RX INSTRUCTIONS: Patient aware RX will be sent to pharmacy. No need to notify patient. Monique Dailey LPN documented in this encounter [facility] 02-05-2023 Note HNO ID: [id number] Author: Lori Barriga APRN.ADVICE LINE RN Service: ? Author Type: Nurse Practitioner Type: Progress Notes Filed: 02/05/2023 9:58 AM Note Text: Subjective The history is provided by the patient. No computer language coder was used. HPI Luz Marina Avila is a 67 year old female who presents today for CC of cough and congestion, this started in past 5 days. Congestion is more in chest. She was exposed to covid at [facility], but being day 5 and improving declines testing. BP 112/72 Pulse 92 Temp 37.2 ?C (98.9 ?F) (Tympanic) Resp 18 Wt 63.2 kg (139 lb 6.4 oz) SpO2 98% BMI 24.39 kg/m? 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 Has been on provigil for 5-10 yrs Obstructive sleep apnea on CPAP Sibilia Psoriasis Rosacea with ocular symptoms S/P angioplasty with stent 01/09/2017 stents to mid and proximal left anterior descending Art, and angio of ostium of #2 diagonal Scalp itch Seasonal allergies Dr Pompa Vitamin D deficiency 2013 Well adult exam 01/16/2016 Last done: 09/08/2018 I have confirmed and edited as necessary, the [facility] Review of Systems Constitutional: Negative for chills and fever. HENT: Negative for congestion, ear pain, sinus pain and sore throat. Respiratory: Positive for cough. Negative for sputum production, shortness of breath and wheezing. Cardiovascular: Negative for chest pain. Musculoskeletal: Negative for myalgias. Neurological: Negative for headaches. Objective Physical Exam Vitals and nursing note reviewed. HENT: Head: Normocephalic and atraumatic. Right Ear: Tympanic membrane, ear canal and external ear normal. Left Ear: Tympanic membrane, ear canal and external ear normal. Nose: Congestion and rhinorrhea present. Right Sinus: No maxillary sinus tenderness or frontal sinus tenderness. Left Sinus: No maxillary sinus tenderness or frontal sinus tenderness. Mouth/Throat: Pharynx: Uvula midline. No oropharyngeal exudate or posterior oropharyngeal erythema. Cardiovascular: Rate and Rhythm: Normal rate and regular rhythm. Heart sounds: Normal heart sounds. Pulmonary: Effort: Pulmonary effort is normal. Breath sounds: Normal breath sounds. Lymphadenopathy: Head: Right side of head: No submental, submandibular or tonsillar adenopathy. Left side of head: No submental, submandibular or tonsillar adenopathy. Cervical: No cervical adenopathy. Skin: General: Skin is warm and dry. Neurological: Mental Status: She is alert. Psychiatric: Mood and Affect: Affect normal. ASSESSMENT/PLAN: 1. URI with cough and congestion - ICD9: 465.9, ICD10: J06.9 - Discussed viral etiology and rationale for treatment. - Symptomatic treatment with prn analgesia - Supportive care with fluids and rest Diagnosis and treatment plan were discussed and questions were answered to the patient's satisfaction. Pt acknowledged understanding of concepts and follow up plan. Specific signs and symptoms that would indicate the need for higher level of care were discussed in detail warranting prompt ER evaluation. Lori Barriga APRN.[facility] 02-05-2023 History of Present illness Narrative Subjective The history is provided by the patient. No computer language coder was used. HPI Luz Marina Avila is a 67 year old female who presents today for CC of cough and congestion, this started in past 5 days. Congestion is more in chest. She was exposed to covid at [facility], but being day 5 and improving declines testing. 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 Has been on provigil for 5-10 yrs Obstructive sleep apnea on CPAP Sibilia Psoriasis Rosacea with ocular symptoms S/P angioplasty with stent 01/09/2017 stents to mid and proximal left anterior descending Art, and angio of ostium of #2 diagonal Scalp itch Seasonal allergies Dr Pompa Vitamin D deficiency 2012 Well adult exam 01/16/2016 Last done: 09/08/2018 I have confirmed and edited as necessary, the [facility] Review of Systems Constitutional: Negative for chills and fever. HENT: Negative for congestion, ear pain, sinus pain and sore throat. Respiratory: Positive for cough. Negative for sputum production, shortness of breath and wheezing. Cardiovascular: Negative for chest pain. Musculoskeletal: Negative for myalgias. Neurological: Negative for headaches. Objective Physical Exam Vitals and nursing note reviewed. HENT: Head: Normocephalic and atraumatic. Right Ear: Tympanic membrane, ear canal and external ear normal. Left Ear: Tympanic membrane, ear canal and external ear normal. Nose: Congestion and rhinorrhea present. Right Sinus: No maxillary sinus tenderness or frontal sinus tenderness. Left Sinus: No maxillary sinus tenderness or frontal sinus tenderness. Mouth/Throat: Pharynx: Uvula midline. No oropharyngeal exudate or posterior oropharyngeal erythema. Cardiovascular: Rate and Rhythm: Normal rate and regular rhythm. Heart sounds: Normal heart sounds. Pulmonary: Effort: Pulmonary effort is normal. Breath sounds: Normal breath sounds. Lymphadenopathy: Head: Right side of head: No submental, submandibular or tonsillar adenopathy. Left side of head: No submental, submandibular or tonsillar adenopathy. Cervical: No cervical adenopathy. Skin: General: Skin is warm and dry. Neurological: Mental Status: She is alert. Psychiatric: Mood and Affect: Affect normal. ASSESSMENT/PLAN: 1. URI with cough and congestion - ICD9: 465.9, ICD10: J06.9 - Discussed viral etiology and rationale for treatment. - Symptomatic treatment with prn analgesia - Supportive care with fluids and rest Diagnosis and treatment plan were discussed and questions were answered to the patient's satisfaction. Pt acknowledged understanding of concepts and follow up plan. Specific signs and symptoms that would indicate the need for higher level of care were discussed in detail warranting prompt ER evaluation. Lori Barriga APRN.CNP documented in this encounter [facility] 02-05-2023 Instructions Lori Barriga APRN.CNP - 02/05/2023 9:43 AM EDT Rest, increase water intake Motrin or Tylenol as needed for fever or pain. Salt water gargles, chloraseptic spray or lozenges as needed for sore throat. Warm beverages, honey. Nasal saline spray as needed Cool mist humidifier at night Continue mucinex Tessalon Perles 1-2 every 8 hours, do not combine this with robitussin or delsym A cold normally lasts 7-10 days. If your symptoms are lasting longer, develop fever, or worsening by that time instead of improving then return to clinic or follow up with PCP for re-evaluation. documented in this encounter [facility] 12-17-2022 Miscellaneous Notes Spoke with pt. Informed DCIS/L breast lumpectomy. No lymph nodes were removed. Ok to have IV in L arm. Pt. Voiced understanding. Monique Dailey LPN Pt. has a h/o DCIS/L breast lumpectomy. No lymph nodes were removed. Ok to have IV in L arm. 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 APRN.[facility] Patient is having surgery on her left wrist. She was informed by ortho that she was to get permission from Julieth to see if she was able to have IV, tourniquet, etc in her left arm due to breast cancer. Please advise patient. documented in this encounter [facility] 12-11-2022 Miscellaneous Notes Noted. documented in this encounter [facility] 12-11-2022 Miscellaneous Notes Please see pt's mychart message,pt stated that Flagyl was not sent to her pharmacy. See pended order below and advise. Ernestine Ayala LPN documented in this encounter [facility] 12-09-2022 Instructions Sima Dumont APRN.[facility] - 12/09/2022 7:25 AM EST Continue Revaree and start Clarivee as planned Aquaphor as needed to protect vulvar skin. Minimizing irritation of the vulva (area around the vagina) Wear white cotton underwear. Avoid synthetic fabrics and tight clothing. Sleep wearing shorts or pajama bottoms without underwear. Shower as soon as possible after exercise. Avoid clothing detergents and soaps with perfumes or dyes. Use warm (not hot) water to wash the vulva and if you use soap use a product designed for sensitive skin (like Dove or Cetaphil). Do not douche or use creams/powders in the vulvar area unless instructed by your physician. If you must douche, use only plain warm water. Make sure the vulva is dry before dressing by patting dry with a towel. Avoid vigorous rubbing with the towel. You may want to use the blow dryer (on the cool setting only!) on the vulva. The most important way to let your body heal is by avoiding scratching. Many patients find it difficult to avoid scratching at night when they are most aware of the itchiness. You can try taking Benadryl just before bedtime. Some women find it helpful to wear cotton gloves to bed to avoid scratching at night. documented in this encounter [facility] 12-09-2022 History of Present illness Narrative Robotic Technician offered: Patient declines. Luz Marina Avila is a 67 year old female who presents for onset of vaginal discharge, burning and mild itching 2 week ago. Treated with Monistat 7. Now has vaginal discharge only. Treated for COVID with Paxlovid around and read that yeast infection is a common side effect. Using Revaree every 3 days. Ordered probiotic and will start. Vaginal discharge: thick.white-yellow Itching: No Dyspareunia: increased irritation Fever/chills: No Abdominal pain: No Bladder: Negative for dysuria or frequency Bowel: No blood in stool, pain with BM, tarry stool, persistent diarrhea or constipation Any new sexual partners or concern for STD exposure: No Any history of STDs: None Does your partner have any new complaints: No Are you currently taking any medications to treat vaginitis: No. Finished Monistat 7 three days ago Do you use feminine sprays, douches or deodorants: No Menstrual cycle: hysterectomy Past medical, surgical, social history, medications and allergies reviewed and updated. OBJECTIVE: BP 110/62 Wt 147 lb (66.7kg) GENERAL: Well developed, well nourished in no apparent distress ABDOMEN: soft, non-tender, and no masses PELVIC: external genitalia normal, normal Bartholin's glands, urethra, [place]'s glands, no vulvar lesions, cervix surgically absent, white milky discharge present, normal appearing perineal body and perianal region. BIMANUAL: no adnexal masses, non-tender, and uterus surgically absent. ASSESSMENT/PLAN: 1. Vaginal discharge - ICD9: 623.5, ICD10: N89.8 - CHINO / TRICHOMONAS AMPLIFICATION - BACTERIAL VAGINOSIS AMPLIFICATION - vulvar hygiene instructions - Continue Revaree and start probiotic. Will notify of results. Follow- up as needed. Sima Dumont APRN.[facility] I spent a total of 20 minutes on the date of the service which included preparing to see the patient, [id number] patient care, completing clinical documentation, obtaining and/or reviewing separately obtained history, performing a medically appropriate examination, counseling and educating the patient/family/caregiver, and ordering medications, tests, or procedures. documented in this encounter [facility] 11-25-2022 Miscellaneous Notes Patient notified. Suki Ambrocio LPN Please inform pt. that her CT is stable. No new findings. Follow up as scheduled. Thank you. 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 APRN.CNP documented in this encounter [facility] 11-25-2022 History of Present illness Narrative Radiology Service Progress Note DATE OF SERVICE: November 25, 2022 TIME: 1:33 PM PATIENT IDENTITY VERIFICATION COMPLETED USING TWO (2) STANDARD IDENTIFIERS: Name and Date of confirmed by patient verbally. FALL SCREENING: Has the patient had 2 falls in the last year or 1 fall with injury or currently using an Ambulatory Assistive Device (Walker, Cane, Wheelchair, Crutches, etc.)? No PATIENT GENDER DATA: Female. status: : No status: NO. PATIENT RELEVANT IMPLANT DATA REVIEWED: Yes ALLERGIES: Reviewed and unchanged CONTRAST ALLERGY: NO. EXAM: CT -CONTRAST INDUCED NEPHROPATHY RISK FACTORS: Patient age > 60 years CREATININE: Creatinine Date Value Ref Range Status 11/25/2022 0.76 0.58 - 0.96 mg/dL Final 08/28/2022 0.82 0.58 - 0.96 mg/dL Final 03/30/2022 0.86 0.58 - 0.96 mg/dL Final Estimated Glomerular Filtration Rate Date Value Ref Range Status 11/25/2022 87 >=60 mL/min/1.73m Final Comment: Estimated Glomerular Filtration Rate (eGFR) is calculated using the 2020 CKD-EPI creatinine equation. This equation utilizes serum creatinine, sex, and age as parameters. The creatinine assay has traceable calibration to isotope dilution-mass spectrometry. Refer to KDIGO guidelines for clinical interpretation. In patients with unstable renal function, e.g. those with acute kidney injury, the eGFR may not accurately reflect actual GFR. eGFR- Date Value Ref Range Status 09/16/2021 >60 Final P.O.C.T. RESULTS: POC done: Yes, See Lab Tab November 25, 2022 TREATMENT: N/A PERIPHERAL IV DATA: Ambulatory: A peripheral IV was started in the Right antecubital site with a Angio cath: 22 gauge. RADIOLOGY DEPARTMENT: CT; Exam(s) Completed: Abdomen/Pelvis SIGNATURE: RT Susie(Sunil) PATIENT NAME: Luz Marina Avila DATE: November 25, 2022 TIME: 1:33 PM documented in this encounter [facility] 11-14-2022 History of Present illness Narrative CC: Patient presents with: Sore Throat: With cough, thick mucus. X 2 days. Spouse has Bronchitis. HPI: Luz Marina Avila is a 67 year old female who presents to the office with complaint of cough, nonproductive and sore throat for a few days. Symptoms are staying the same. Associated symptoms includes sore throat. Denies fever, nausea, vomiting , and diarrhea. Treatments tried include nothing so far. with no relief of symptoms. Sick contacts: unknown. History of asthma, frequent episodes of bronchitis, chronic bronchitis, bronchiectasis or COPD: No Smoker: No Seasonal/environmental allergies: No The ROS is otherwise negative. The patient's pmh, medications, allergies, and past visits are reviewed. PHYSICAL EXAM: BP 138/82 Pulse 77 Temp 37.1 C (98.7 F) Resp 16 Wt 68.5 kg (151 lb) SpO2 98% BMI 26.42 kg/m General appearance: alert, cooperative, pleasant, in no acute distress Head: Normocephalic Eyes: EOM's intact, conjunctiva pink and moist, no icterus, sclera white, non-injected Ears: Right ear: External ear/canal- Normal, TM - clear with good landmarks. Left ear: External ear/canal- Normal, TM - clear with good landmarks Oropharynx:moderate erythema, without exudates present Heart: Negative. RRR without obvious murmur, gallop, or rubs. No ectopy. 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 Has been on provigil for 5-10 yrs Obstructive sleep apnea on CPAP Sibilia Psoriasis Rosacea with ocular symptoms S/P angioplasty with stent 01/09/2017 stents to mid and proximal left anterior descending Art, and angio of ostium of #2 diagonal Scalp itch Seasonal allergies Dr Pompa Vitamin D deficiency 2012 Well adult exam 01/16/2016 Last done: 09/08/2018 PAST SURGICAL HISTORY Procedure Laterality Date 2D ECHO (EXEP) 06/30/2017 EF=65%, trivial HI, TI and 1+ PI Unchanged from 04/2017 2D ECHO (EXEP) 05/14/2021 EF=60%, 1+ TI, trival HI, AI, PI 2D ECHO (EXEP) 09/16/2021 EF=60%, no significant valve disease BREAST LUMPECTOMY HX Left 04/08/2021 BUNIONECTOMY, [place]-TYPE 2009 left great toe BX BREAST W/DEVICE 1ST LESION STEREOTACTIC GUID Left 03/25/2021 DELIVERY ONLY CHOLECYSTECTOMY 2004 Cholecystectomy COLONOSCOPY 08/07/2015 no polyps, recheck 3-5 yrs COLONOSCOPY & POLYPECTOMY 10/12, 10/13 Dr Avila; hyperplastic polyps COLONOSCOPY FLX DX W/COLLJ SPEC WHEN PFRMD 08/09/2018 Colonoscopy ESOPHAGOGASTRODUODENOSCOPY TRANSORAL DIAGNOSTIC 08/09/2018 EGD HEART CATHETERIZATION 2004 heart cath-normal per patient HEART CATHETERIZATION 01/04/2017 EF=60%, left anterior desending septal perferator 95-99% stenosis and diagonal branch 85% stenosis, HEART CATHETERIZATION 10/2018 HEART SURGERY HX 12/2016 Cardiac stents x 2 LOW BACK DISK SURGERY 2010 microdecompression L4 L5 MASTECTOMY, PARTIAL Left 04/08/2021 PAST SURGICAL HISTORY OF 2005 parathyroidectomy x1 PAST SURGICAL HISTORY OF lipoma x2 PAST SURGICAL HISTORY OF 10/2006 left foot surgery (bone cyst in heel, removed) PAST SURGICAL HISTORY OF 2015 bilateral carpel tunnel PAST SURGICAL HISTORY OF Right 10/2016 trigger finger release x2 STENT PLACEMENT 01/06/2017 stents to mid and proximal left anterior descending Art, and angio of ostium of #2 diagonal STRESS TEST 04/20/2017 WNL TOTAL ABDOMINAL HYSTERECT W/WO RMVL TUBE OVARY 1995 LEDA for benign fibroid, ovaries intact ALLERGIES Brilinta [Ticagrelor], Crestor [Rosuvastatin], Keflex [Cephalexin], Lipitor [Atorvastatin], Lovastatin, and Delphos [Hydrocodone-Acetaminophen] MEDICATIONS ezetimibe (ZETIA) 10 mg tablet Take 1 tablet by mouth once daily. hydroCHLOROthiazide (HYDRODIURIL, ESIDRIX) 25 mg tablet Take 1 tablet by mouth once daily. dulaglutide (TRULICITY) 3 mg/0.5 mL pen injector Inject 3 mg subcutaneously one time a week. metFORMIN (GLUCOPHAGE) 500 mg tablet Take 2 tablets by mouth twice daily with meals. cyclobenzaprine (FLEXERIL) 10 mg tablet Take 1 tablet by mouth three times daily as needed for muscle spasm. omeprazole (PRILOSEC) 40 mg capsule Take 1 capsule by mouth once daily. potassium chloride SR (MICRO-K) 10 mEq CR capsule Take 2 capsules by mouth twice daily. tamoxifen (NOLVADEX) 20 mg tablet Take 1 tablet (20 mg) by mouth once daily. ammonium lactate (LAC-HYDRIN) 12 % lotion Apply 1 application to affected area twice daily as needed. Clobetasol Propionate 0.05 % gel Apply 1 application to affected area as needed. doxycycline monohydrate (MONODOX) 50 mg capsule Take 50 mg by mouth as needed. calcium citrate/vitamin D3 (CALCIUM CITRATE + D ORAL) Take 1 tablet by mouth once daily. acetaminophen (TYLENOL) 500 mg tablet Take 1,000 mg by mouth every 8 hours as needed. nitroglycerin sublingual (NITROQUICK) 0.4 mg SL tablet Dissolve 1 tablet under the tongue every 5 minutes as needed for Chest Pain. ketoconazole (NIZORAL) 2 % shampoo Apply 1 application to affected area once daily as needed. MAGNESIUM SULFATE ORAL Take 500 mg by mouth once daily. montelukast (SINGULAIR) 10 mg tablet Take 10 mg by mouth daily at bedtime. metoprolol succinate ER (TOPROL XL) 25 mg 24 hr tablet Take 1 tablet by mouth twice daily. Per Dr. Gomez lisinopril (ZESTRIL, PRINIVIL) 5 mg tablet Take 1 tablet by mouth once daily. LACTOBACILLUS ACIDOPHILUS (PROBIOTIC ORAL) Take 1 tablet by mouth once daily. CPAP FAMILY HISTORY Problem Relation Age of Onset other (Pancreatic cancer) Mother Coronary Artery Disease Father 25 HI @ 25. CABG Diabetes Father Diabetes Paternal Grandmother Diabetes Maternal Grandfather other (Lung cancer) Brother other (suicide) Son may of been depression Social History Tobacco Use Smoking status: Former Packs/day: 1.50 Years: 3.00 Pack years: 4.50 Types: Cigarettes Quit date: 11/08/1994 Years since quittin.0 Smokeless tobacco: Never Tobacco comments: smoked 3 years in mid 90s Vaping Use Vaping Use: Never used Substance Use Topics Alcohol use: No Drug use: No ASSESSMENT/PLAN: 1. Sore throat - ICD9: 462, ICD10: J02.9 - STREP A MOLECULAR (POC) - neg Tessalon prn Prescription instructions reviewed with patient as applicable. Potential red flag symptoms discussed with the patient. Reviewed appropriate action plan to take if red flag symptoms occur. Patient agreeable to treatment plan. Shaneka Lopez APRN.ADVICE LINE RN documented in this encounter [facility] 11-11-2022 Instructions Matthew Joaquin - 11/11/2022 1:49 PM EST Diabetes Foot Care Instructions When you have diabetes, proper foot care is very important. Poor foot care may lead to amputation of a foot or leg. As a person with diabetes, you are more vulnerable to foot problems, because diabetes can damage your nerves and reduce blood flow to your feet. Here are some diabetes foot care tips to follow: Wash and Dry Your Feet Daily Use mild soaps Use warm water Pat your skin dry; do not rub. Thoroughly dry your feet. After washing, use lotion on your feet to prevent cracking. Do not put lotion between your toes. Examine Your Feet Each Day Check the tops and bottoms of your feet. Have someone else look at your feet if you cannot see them. Check for dry, cracked skin. Look for blisters, cuts, scratches, or other sores. Check for redness, increased warmth, or tenderness when touching any area of your feet. Check for ingrown toenails, corns, and calluses. If you get a blister or sore from your shoes, do not pop it. Apply a bandage and wear a different pair of shoes. Take Care of Your Toenails Cut toenails after bathing, when they are soft. Cut toenails straight across and smooth with a nail file. Avoid cutting into the corners of toes. Do not cut cuticles. If you have neuropathy (or decreased sensation in your feet) a carbider should always cut your toenails. Be Careful When Exercising Walk and exercise in comfortable shoes. Do not exercise when you have open sores on your feet. Protect Your Feet With Shoes and Socks Never go barefoot. Always protect your feet by wearing shoes or hard-soled slippers or footwear. Avoid shoes with high heels and pointed toes. Avoid shoes that expose your toes or heels (such as open-toed shoes or sandals). These types of shoes increase your risk for injury and potential infections. Try on new footwear with the type of socks you usually wear. Do not wear new shoes for more than an hour at a time. Change your socks daily. Look and feel inside your shoes before putting them on to make sure there are no foreign objects or rough areas. Avoid tight socks. Wear natural-fiber socks (cotton, wool, or a cotton-wool blend). Wear special shoes if your health care provider recommends them. Wear shoes/boots that will protect your feet from various weather conditions (cold, moisture, etc.). Make sure your shoes fit properly. If you have neuropathy (nerve damage), you may not notice that your shoes are too tight. Perform the footwear test described below. Footwear Test Use this simple test to see if your shoes fit correctly: Stand on a piece of paper. (Make sure you are standing and not sitting, because your foot changes shape when you stand.) Trace the outline of your foot. Trace the outline of your shoe. Compare the tracings: Is the shoe too narrow? Is your foot crammed into the shoe? The shoe should be at least 1/2 inch longer than your longest toe and as wide as your foot. Proper Shoe Choices The following types of shoes are best for people with diabetes Closed toes and heels Leather uppers without a seam inside At least 1/2 inch extra space at the end of your longest toe Inside of shoe should be soft with no rough areas Outer sole should be made of stiff material Shoes should be at least as wide as your feet Tips for Foot Care in Diabetes Don't wait to treat a minor foot problem if you have diabetes. Follow your health care provider's guidelines and first aid guidelines. Report foot injuries and infections to your health care provider immediately. Check water temperature with your elbow, not your foot. Do not use a heating pad on your feet. Do not cross your legs. Do not self-treat your corns, calluses, or other foot problems. Go to your health care provider or carbider to treat these conditions. If ingrown becomes an issue, call for procedure documented in this encounter [facility] 11-11-2022 History of Present illness Narrative Consultation requested by Dr. Hung for an opinion regarding diabetic foot exam. My final recommendations will be communicated back to the requesting physician by way of shared Medical record or letter to requesting physician via US mail. Initial Office Visit Subjective: This 67 year old female presents to clinic for diabetic foot check. Patient has the following complaints: ingrowing toenail of left hallux. Patient presents to clinic with complaint of ingrowing toenail. Patient has on/off ingrown toenail of left hallux. She has no pain currently. She is here to more or less discuss options for ingrowing tenail. Patient admits to being diabetic for 17 years now. Patient +B/T/N in feet at this time. Patient -pain in legs when walking. No other pedal complaints at this time. No change in medications or medical history since last visit. PAIN EVALUATION No data found in the last 1 encounters. 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 Has been on provigil for 5-10 yrs Obstructive sleep apnea on CPAP Sibilia Psoriasis Rosacea with ocular symptoms S/P angioplasty with stent 01/09/2017 stents to mid and proximal left anterior descending Art, and angio of ostium of #2 diagonal Scalp itch Seasonal allergies Dr Pompa Vitamin D deficiency 2013 Well adult exam 01/16/2016 Last done: 09/08/2018 Current Outpatient Medications Medication Sig ezetimibe (ZETIA) 10 mg tablet Take 1 tablet by mouth once daily. hydroCHLOROthiazide (HYDRODIURIL, ESIDRIX) 25 mg tablet Take 1 tablet by mouth once daily. dulaglutide (TRULICITY) 3 mg/0.5 mL pen injector Inject 3 mg subcutaneously one time a week. metFORMIN (GLUCOPHAGE) 500 mg tablet Take 2 tablets by mouth twice daily with meals. cyclobenzaprine (FLEXERIL) 10 mg tablet Take 1 tablet by mouth three times daily as needed for muscle spasm. omeprazole (PRILOSEC) 40 mg capsule Take 1 capsule by mouth once daily. potassium chloride SR (MICRO-K) 10 mEq CR capsule Take 2 capsules by mouth twice daily. tamoxifen (NOLVADEX) 20 mg tablet Take 1 tablet (20 mg) by mouth once daily. ammonium lactate (LAC-HYDRIN) 12 % lotion Apply 1 application to affected area twice daily as needed. Clobetasol Propionate 0.05 % gel Apply 1 application to affected area as needed. doxycycline monohydrate (MONODOX) 50 mg capsule Take 50 mg by mouth as needed. calcium citrate/vitamin D3 (CALCIUM CITRATE + D ORAL) Take 1 tablet by mouth once daily. acetaminophen (TYLENOL) 500 mg tablet Take 1,000 mg by mouth every 8 hours as needed. nitroglycerin sublingual (NITROQUICK) 0.4 mg SL tablet Dissolve 1 tablet under the tongue every 5 minutes as needed for Chest Pain. ketoconazole (NIZORAL) 2 % shampoo Apply 1 application to affected area once daily as needed. MAGNESIUM SULFATE ORAL Take 500 mg by mouth once daily. montelukast (SINGULAIR) 10 mg tablet Take 10 mg by mouth daily at bedtime. metoprolol succinate ER (TOPROL XL) 25 mg 24 hr tablet Take 1 tablet by mouth twice daily. Per Dr. Gomez lisinopril (ZESTRIL, PRINIVIL) 5 mg tablet Take 1 tablet by mouth once daily. LACTOBACILLUS ACIDOPHILUS (PROBIOTIC ORAL) Take 1 tablet by mouth once daily. CPAP No current facility-administered medications for this visit. ALLERGIES Allergen Reactions Brilinta [Ticagrelo* Shortness of Breath Crestor [Rosuvastat* Myalgia Keflex [Cephalexin] Other: See Comments facial flushing Lipitor [Atorvastat* Other: See Comments myalgia Lovastatin Other: See Comments myalgia Delphos [Hydrocodone-* Itching PAST SURGICAL HISTORY Procedure Laterality Date 2D ECHO (EXEP) 06/30/2017 EF=65%, trivial HI, TI and 1+ PI Unchanged from 04/2017 2D ECHO (EXEP) 05/14/2021 EF=60%, 1+ TI, trival HI, AI, PI 2D ECHO (EXEP) 09/16/2021 EF=60%, no significant valve disease BREAST LUMPECTOMY HX Left 04/08/2021 BUNIONECTOMY, LAPIDUS-TYPE 2009 left great toe BX BREAST W/DEVICE 1ST LESION STEREOTACTIC GUID Left 03/25/2021 DELIVERY ONLY CHOLECYSTECTOMY 2004 Cholecystectomy COLONOSCOPY 08/07/2015 no polyps, recheck 3-5 yrs COLONOSCOPY & POLYPECTOMY 10/12, 10/13 Dr Avila; hyperplastic polyps COLONOSCOPY FLX DX W/COLLJ SPEC WHEN PFRMD 08/09/2018 Colonoscopy ESOPHAGOGASTRODUODENOSCOPY TRANSORAL DIAGNOSTIC 08/09/2018 EGD HEART CATHETERIZATION 2004 heart cath-normal per patient HEART CATHETERIZATION 01/04/2017 EF=60%, left anterior desending septal perferator 95-99% stenosis and diagonal branch 85% stenosis, HEART CATHETERIZATION 10/2018 HEART SURGERY HX 12/2016 Cardiac stents x 2 LOW BACK DISK SURGERY 2010 microdecompression L4 L5 MASTECTOMY, PARTIAL Left 04/08/2021 PAST SURGICAL HISTORY OF 2004 parathyroidectomy x1 PAST SURGICAL HISTORY OF lipoma x2 PAST SURGICAL HISTORY OF 10/2006 left foot surgery (bone cyst in heel, removed) PAST SURGICAL HISTORY OF 2014 bilateral carpel tunnel PAST SURGICAL HISTORY OF Right 10/2016 trigger finger release x2 STENT PLACEMENT 01/06/2017 stents to mid and proximal left anterior descending Art, and angio of ostium of #2 diagonal STRESS TEST 04/20/2017 WNL TOTAL ABDOMINAL HYSTERECT W/WO RMVL TUBE OVARY 1995 LEDA for benign fibroid, ovaries intact FAMILY HISTORY Problem Relation Age of Onset other (Pancreatic cancer) Mother Coronary Artery Disease Father 25 HI @ 25. CABG Diabetes Father Diabetes Paternal Grandmother Diabetes Maternal Grandfather other (Lung cancer) Brother other (suicide) Son may of been depression Social History Tobacco Use Smoking status: Former Packs/day: 1.50 Years: 3.00 Pack years: 4.50 Types: Cigarettes Quit date: 11/08/1994 Years since quittin.0 Smokeless tobacco: Never Tobacco comments: smoked 3 years in mid 90s Vaping Use Vaping Use: Never used Substance Use Topics Alcohol use: No Drug use: No REVIEW OF SYSTEMS GENERAL: Negative for Malaise, significant weight loss, fever RESPIRATORY: Negative for cough, wheezing and shortness of breath CARDIOVASCULAR: Negative for chest pain, leg swelling and palpitations GI: Negative for abdominal discomfort, blood in stools or black stools and change in bowel habits : Negative for dysuria, frequency and incontinence MUSCULOSKELETAL: Negative for joint pain or swelling, back pain, and muscle pain. SKIN: Negative for lesions, rash, and itching. HEMATOLOGY/LYMPHOLOGY Negative for prolonged bleeding, bruising easily, and swollen nodes. ENDOCRINE: Negative for cold or heat intolerance, polyuria, polydipsia and goiter. NEURO: negative The remainder of the review of systems is noncontributory. Objective: Patient presents to clinic ambulating in [facility] Constitutional: Pt is a well developed 67 year old female who is alert, oriented, cooperative and in no apparent distress. Eyes: Following during examination. No redness or drainage. Respiratory: RR normal and nonlabored. Even breathing. No evidence of distress. Psychology: Patient is engaged during conversation. Normal affect and mood. Does not appear depressed or anxious. Vasc: DP and PT pulses are palpable bilateral. CFT is less than 5 seconds bilateral. Skin temperature is warm to warm proximal to distal bilateral. There is no edema or varicosities noted. Hair growth present. Neuro: Protective sensation is intact to the foot and toes when tested with the 5.07 SWM bilateral. Vibratory sensation is decreased at the hallux bilateral. + Significant neurological defecits. Derm: Inspection and palpation performed. Nails 1-5 b/l are normal in length and thickness. Ingrowing tendency is noted to medial border of left hallux. No signs of infection. Skin is dry b/l. Minimal callus to right hallux. No ulceration. NO ulcerations, scars, verruca or other lesions noted. Ortho: Ankle joint DF is full with the knee extended and full with knee flexed. No pain or crepitus noted. STJ, MTJ ROM are full and free of pain or crepitus. Muscle strength is 5/5 for dorsiflexors, plantarflexors, inverters, everters. Digital deformities include none. Assessment: (E11.49) Other diabetic neurological complication associated with type 2 diabetes mellitus (HCC) (primary encounter diagnosis) (L60.0) Ingrowing toenail Plan: 1. Patient was seen and evaluated. 2. Patient was instructed on the continued importance of diabetic foot care along with proper diet and keeping their blood sugar under control to prevent complications. Instructions given both oral and written. 3. Discussed ingrowing tendendy of left hallux. No signs of infection. Discussed proper trimming of nail. Discussed plan of matrixectomy if patient continues to develop ingrown. Offered matrixectomy today but patient elected to hold on this. If she develops issues, consider matrixectomy 4. She has more dryness than callus. Recommend lotion to feet. 5. Can f/u in 6 months or sooner if problems arise. Matthew Joaquin DPM AMB ROOMING INTAKE FLOWSHEET DATA Risk Screening Do you have concerns about personal safety or safety in the home?: No Patient presents with: Left Great Toe - New Patient, Ingrown Toenail Patient c/o ingrown toenail to L hallux. documented in this encounter [facility] 11-03-2022 Instructions Cherise Sifuentes PA-C - 11/03/2022 2:23 PM EST FACT SHEET FOR PATIENTS, PARENTS, AND CAREGIVERS EMERGENCY USE AUTHORIZATION (EUA) OF PAXLOVID FOR CORONAVIRUS DISEASE 2019 (COVID-19) You are being given this Fact Sheet because your healthcare provider believes it is necessary to provide you with PAXLOVID for the treatment of pftf-rb-fkvashth coronavirus disease (COVID-19) caused by the SARS-CoV-2 virus. This Fact Sheet contains information to help you understand the risks and benefits of taking the PAXLOVID you have received or may receive. The U.S. Food and Drug Administration (FDA) has issued an Emergency Use Authorization (EUA) to make PAXLOVID available during the COVID-19 pandemic (for more details about an EUA please see What is an Emergency Use Authorization? at the end of this document). PAXLOVID is not an FDA-approved medicine in the [place]. Read this Fact Sheet for information about PAXLOVID. Talk to your healthcare provider about your options or if you have any questions. It is your choice to take PAXLOVID. What is COVID-19? COVID-19 is caused by a virus called a coronavirus. You can get COVID-19 through close contact with another person who has the virus. COVID-19 illnesses have ranged from very nqlz-di-wyuiib, including illness resulting in . While information so far suggests that most COVID-19 illness is mild, serious illness can happen and may cause some of your other medical conditions to become worse. Older people and people of all ages with severe, long lasting (chronic) medical conditions like heart disease, lung disease, and diabetes, for example seem to be at higher risk of being hospitalized for COVID-19. What is PAXLOVID? PAXLOVID is an investigational medicine used to treat cmry-mv-umqozhjf COVID-19 in adults and children [12 years of age and older weighing at least 88 pounds (40 kg)] with positive results of direct SARS-CoV-2 viral testing, and who are at high risk for progression to severe COVID-19, including hospitalization or . PAXLOVID is investigational because it is still being studied. There is limited information about the safety and effectiveness of using PAXLOVID to treat people with ghjp-to-dgabnowa COVID-19. The FDA has authorized the emergency use of PAXLOVID for the treatment of zkbc-yt-mthyunyz COVID-19 in adults and children [12 years of age and older weighing at least 88 pounds (40 kg)] with a positive test for the virus that causes COVID-19, and who are at high risk for progression to severe COVID-19, including hospitalization or , under an EUA. 1 Revised: 23 January 2022 What should I tell my healthcare provider before I take PAXLOVID? Tell your healthcare provider if you: Have any allergies Have liver or kidney disease Are or plan to become Are a child Have any serious illnesses Tell your healthcare provider about all the medicines you take, including prescription and kblr-sqr-wxvowuz medicines, vitamins, and herbal supplements. Some medicines may interact with PAXLOVID and may cause serious side effects. Keep a list of your medicines to show your healthcare provider and pharmacist when you get a new medicine. You can ask your healthcare provider or pharmacist for a list of medicines that interact with PAXLOVID. Do not start taking a new medicine without telling your healthcare provider. Your healthcare provider can tell you if it is safe to take PAXLOVID with other medicines. Tell your healthcare provider if you are taking combined hormonal contraceptive. PAXLOVID may affect how your control pills work. Females who are able to become should use another effective alternative form of contraception or an additional barrier method of contraception. Talk to your healthcare provider if you have any questions about contraceptive methods that might be right for you. How do I take PAXLOVID? PAXLOVID consists of 2 medicines: nirmatrelvir and ritonavir. Take 2 pink tablets of nirmatrelvir with 1 white tablet of ritonavir by mouth 2 times each day (in the morning and in the evening) for 5 days. For each dose, take all 3 tablets at the same time. If you have kidney disease, talk to your healthcare provider. You may need a different dose. Swallow the tablets whole. Do not chew, break, or crush the tablets. Take PAXLOVID with or without food. Do not stop taking PAXLOVID without talking to your healthcare provider, even if you feel better. If you miss a dose of PAXLOVID within 8 hours of the time it is usually taken, take it as soon as you remember. If you miss a dose by more than 8 hours, skip the missed dose and take the next dose at your regular time. Do not take 2 doses of PAXLOVID at the same time. If you take too much PAXLOVID, call your healthcare provider or go to the nearest hospital emergency room right away. If you are taking a ritonavir-or cobicistat-containing medicine to treat hepatitis C or Human Immunodeficiency Virus (HIV), you should continue to take your medicine as prescribed by your healthcare provider. Talk to your healthcare provider if you do not feel better or if you feel worse after 5 days. Who should generally not take PAXLOVID? Do not take PAXLOVID if: You are allergic to nirmatrelvir, ritonavir, or any of the ingredients in PAXLOVID You are taking any of the following medicines: Alfuzosin Pethidine, propoxyphene Ranolazine Amiodarone, dronedarone, flecainide, propafenone, quinidine Colchicine Lurasidone, pimozide, clozapine Dihydroergotamine, ergotamine, methylergonovine Lovastatin, simvastatin Sildenafil (Revatio ) for pulmonary arterial hypertension (PAH) Triazolam, oral midazolam Apalutamide Carbamazepine, phenobarbital, phenytoin Rifampin Epi s Wort (hypericum perforatum) Taking PAXLOVID with these medicines may cause serious or life-threatening side effects or affect how PAXLOVID works. These are not the only medicines that may cause serious side effects if taken with PAXLOVID. PAXLOVID may increase or decrease the levels of multiple other medicines. It is very important to tell your healthcare provider about all of the medicines you are taking because additional laboratory tests or changes in the dose of your other medicines may be necessary while you are taking PAXLOVID. Your healthcare provider may also tell you about specific symptoms to watch out for that may indicate that you need to stop or decrease the dose of some of your other medicines. What are the important possible side effects of PAXLOVID? Possible side effects of PAXLOVID are: Allergic Reactions. Allergic reactions can happen in people taking PAXLOVID, even after only 1 dose. Stop taking PAXLOVID and call your healthcare provider right away if you get any of the following symptoms of an allergic reaction: hives trouble swallowing or breathing swelling of the mouth, lips, or face throat tightness hoarseness skin rash Liver Problems. Tell your healthcare provider right away if you have any of these signs and symptoms of liver problems: loss of appetite, yellowing of your skin and the whites of eyes (jaundice), dark-colored urine, pale colored stools and itchy skin, stomach area (abdominal) pain. Resistance to HIV Medicines. If you have untreated HIV infection, PAXLOVID may lead to some HIV medicines not working as well in the future. Other possible side effects include: altered sense of taste diarrhea high blood pressure muscle aches These are not all the possible side effects of PAXLOVID. Not many people have taken PAXLOVID. Serious and unexpected side effects may happen. PAXLOVID is still being studied, so it is possible that all of the risks are not known at this time. What other treatment choices are there? Veklury (remdesivir) is FDA-approved for the treatment of ifab-eq-ygeizjey COVID-19 in certain adults and children. Talk with your doctor to see if Veklury is appropriate for you. Like PAXLOVID, FDA may also allow for the emergency use of other medicines to treat people with COVID-19. Go to https://www.fda.gov/emergency-prep koby-sapphire/iis-jasrz-hhx tdcjlvf-dig-jpdwgd-framework/emerg assl-zqv-bmqqfebhjducx for information on the emergency use of other medicines that are authorized by FDA to treat people with COVID-19. Your healthcare provider may talk with you about clinical trials for which you may be eligible. It is your choice to be treated or not to be treated with PAXLOVID. Should you decide not to receive it or for your child not to receive it, it will not change your standard medical care. What if I am or ? There is note specialist treating women or mothers with PAXLOVID. For a mother and unborn baby, the benefit of taking PAXLOVID may be greater than the risk from the treatment. If you are , discuss your options and specific situation with your healthcare provider. It is recommended that you use effective barrier contraception or do not have sexual activity while taking PAXLOVID. If you are , discuss your options and specific situation with your healthcare provider. How do I report side effects with PAXLOVID? Contact your healthcare provider if you have any side effects that bother you or do not go away. Report side effects to FDA MedWatch at www.fda.gov/medwatch or call 9-914-PFX2447 or you can report side effects to [employer]. at the contact information provided below. Website Fax number Telephone number [employer] How should I store PAXLOVID? Store PAXLOVID tablets at room temperature, between 68?F to 77?F (20?C to 25?C). How can I learn more about COVID-19? Ask your healthcare provider. Visit https://www.cdc.gov/COVID19. Contact your local or state public health department. What is an Emergency Use Authorization (EUA)? The [place] FDA has made PAXLOVID available under an emergency access mechanism called an Emergency Use Authorization (EUA). The EUA is supported by a Audiologist of Health and Human Service (HHS) declaration that circumstances exist to justify the emergency use of drugs and biological products during the COVID-19 pandemic. PAXLOVID for the treatment of lkzk-uk-[id number] COVID-19 in adults and children [12 years of age and older weighing at least 88 pounds (40 kg)] with positive results of direct SARS-CoV-2 viral testing, and who are at high risk for progression to severe COVID-19, including hospitalization or , has not undergone the same type of review as an FDA-approved product. In issuing an EUA under the COVID-19 public health emergency, the FDA has determined, among other things, that based on the total amount of scientific evidence available including data from adequate and well-controlled clinical trials, if available, it is reasonable to believe that the product may be effective for diagnosing, treating, or preventing COVID-19, or a serious or life-threatening disease or condition caused by COVID-19; that the known and potential benefits of the product, when used to diagnose, treat, or prevent such disease or condition, outweigh the known and potential risks of such product; and that there are no adequate, approved, and available alternatives. All of these criteria must be met to allow for the product to be used in the treatment of patients during the COVID-19 pandemic. The EUA for PAXLOVID is in effect for the duration of the COVID-19 declaration justifying emergency use of this product, unless terminated or revoked (after which the products may no longer be used under the EUA). Additional Information For general questions, visit the website or call the telephone number provided below. Website Telephone number [email or web address] ([phone]) You can also go to [email or web address] or call for more information. Pfizer Distributed by [employer] Division of [employer] [place] [address] [id number] Revised: 23 January 2022 documented in this encounter [facility] 11-03-2022 Miscellaneous Notes Called patient to discuss: Nirmatrelvir/Ritonavir (Paxlovid) Eligibility and Patient Discussion [facility] Formulary Restriction Criteria: Adult outpatients 18 years and older with ALL of the following: [x] Patient has positive SARS-COV-2 viral test (PCR or antigen test) during current illness [x] Patient has symptoms for 5 days or less [x] Not requiring hospitalization at any time for management of COVID-19 [x] Not requiring supplemental oxygen or a change in baseline supplemental oxygen [x] Not utilized for pre-exposure or post-exposure prophylaxis for prevention of COVID-19 [x] Patient does not have severe renal impairment (eGFR < 30 mL/min) or severe hepatic impairment (Child-Lara Class C) [x] Meeting at least one of the criteria for high risk of progression to severe COVID-19: [x] Age over 65 years [] Cancer [] Chronic kidney disease [] Chronic liver disease [] Chronic lung diseases, including cystic fibrosis [] Dementia or other neurological conditions [x] Diabetes (type 1 or type 2) [] Disabilities, including Down syndrome and neurodevelopmental disorders [] Heart conditions [] HIV infection [] Immunocompromised state [] Mental health conditions [] Medical related technological dependence (tracheostomy, gastrostomy, or positive pressure ventilation (not related to COVID) [] Overweight and obesity (BMI greater or equal to 25 for adults) [] Physical inactivity [] [] Sickle cell disease or thalassemia [] Smoking, current or former [] Solid organ or blood stem cell transplant [] Stroke or cerebrovascular disease [] Substance use disorders [] Tuberculosis [] People from racial and ethnic minority groups Criteria above are met: Yes Date of Positive Test:11/02/22 Date of Symptom Onset: 10/31/22 Patient received COVID vaccine: Yes Drug-Drug interactions reviewed: No. I have discussed the use of the investigational therapeutic, nirmatrelvir/ritonavir, for the treatment of mild to moderate COVID-19 and its use under Emergency Use Authorization with the patient. The patient was informed that nirmatrelvir/ritonavir is not an FDA approved drug and that it is authorized for use under this Emergency Use Authorization. The patient was also informed of the significant known benefits and potential risks of nirmatrelvir/ritonavir, and the extent to which such potential risks and benefits are unknown. The patient was informed that there is mandatory reporting of all medication errors and serious adverse events potentially related to nirmatrelvir/ritonavir treatment within 7 calendar days from the onset of the event and that events up to 28 days after completion of therapy need to be reported. The discussion included alternatives to receiving nirmatrelvir/ritonavir, including clinical trials, and potential the risks and benefits of those alternatives. The patient was provided electronically with the Fact Sheet for Patients, Parents and Caregivers . The patient was also instructed that in addition to the treatment with nirmatrelvir/ritonavir, he/she should continue to self-isolate and use infection control measures (e.g., wear mask, isolate, social distance, avoid sharing personal items, clean and disinfect high touch surfaces, and frequent handwashing) according to CDC guidelines. The patient stated understanding and gave verbal consent to proceeding with nirmatrelvir/ritonavir treatment. Cherise Sifuentes PA-C November 03, 2022 2:19 PM The following approved medication requests have been transmitted electronically. Requested Prescriptions Signed Prescriptions Disp Refills nirmatrelvir tablet 300 mg (150 mg x 2) and ritonavir tablet 100 mg in a dose pack (PAXLOVID) 30 tablet 0 Sig: Administer TWO pink nirmatrelvir 150 mg tablets and ONE white ritonavir 100 mg tablet for a total of three tablets twice daily. Cherise Sifuentes PA-C Patient calling wants to make sure Cherise was able to see this my chart message today. documented in this encounter [facility] 11-02-2022 History of Present illness Narrative CC: Patient presents with: Cough: nasal congestion, drainage, headache and bodyaches x 3 weeks, + covid last week HPI: Luz Marina Avila is a 67 year old female who presents to the office with complaint of head congestion and cough, nonproductive for a few days. Symptoms are staying the same. Associated symptoms includes headache and body aches. Denies nausea, vomiting , and diarrhea. Treatments tried include nothing so far. with no relief of symptoms. Sick contacts: unknown. History of asthma, frequent episodes of bronchitis, chronic bronchitis, bronchiectasis or COPD: No Smoker: No Seasonal/environmental allergies: No The ROS is otherwise negative. The patient's pmh, medications, allergies, and past visits are reviewed. PHYSICAL EXAM: BP 132/84 Pulse 92 Temp (!) 38.1 C (100.6 F) Resp 18 Wt 67.6 kg (149 lb) SpO2 96% BMI 26.07 kg/m General appearance: alert, cooperative, pleasant, in no acute distress Head: Normocephalic Eyes: EOM's intact, conjunctiva pink and moist, no icterus, sclera white, non-injected Ears: Right ear: External ear/canal- Normal, TM - clear with good landmarks. Left ear: External ear/canal- Normal, TM - clear with good landmarks Oropharynx:moist without lesions, No erythema, exudates or tonsillar hypertrophy. Heart: Negative. RRR without obvious murmur, gallop, or rubs. No ectopy. 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 Has been on provigil for 5-10 yrs Obstructive sleep apnea on CPAP Sibilia Psoriasis Rosacea with ocular symptoms S/P angioplasty with stent 01/09/2017 stents to mid and proximal left anterior descending Art, and angio of ostium of #2 diagonal Scalp itch Seasonal allergies Dr Pompa Vitamin D deficiency 2012 Well adult exam 01/16/2016 Last done: 09/08/2018 PAST SURGICAL HISTORY Procedure Laterality Date 2D ECHO (EXEP) 06/30/2017 EF=65%, trivial HI, TI and 1+ PI Unchanged from 04/2017 2D ECHO (EXEP) 05/14/2021 EF=60%, 1+ TI, trival HI, AI, PI 2D ECHO (EXEP) 09/16/2021 EF=60%, no significant valve disease BREAST LUMPECTOMY HX Left 04/08/2021 BUNIONECTOMY, LAPIDUS-TYPE 2010 left great toe BX BREAST W/DEVICE 1ST LESION STEREOTACTIC GUID Left 03/25/2021 DELIVERY ONLY CHOLECYSTECTOMY 2005 Cholecystectomy COLONOSCOPY 08/07/2015 no polyps, recheck 3-5 yrs COLONOSCOPY & POLYPECTOMY 10/12, 10/13 Dr Avila; hyperplastic polyps COLONOSCOPY FLX DX W/COLLJ SPEC WHEN PFRMD 08/09/2018 Colonoscopy ESOPHAGOGASTRODUODENOSCOPY TRANSORAL DIAGNOSTIC 08/09/2018 EGD HEART CATHETERIZATION 2004 heart cath-normal per patient HEART CATHETERIZATION 01/04/2017 EF=60%, left anterior desending septal perferator 95-99% stenosis and diagonal branch 85% stenosis, HEART CATHETERIZATION 10/2018 HEART SURGERY HX 12/2016 Cardiac stents x 2 LOW BACK DISK SURGERY 2010 microdecompression L4 L5 MASTECTOMY, PARTIAL Left 04/08/2021 PAST SURGICAL HISTORY OF 2004 parathyroidectomy x1 PAST SURGICAL HISTORY OF lipoma x2 PAST SURGICAL HISTORY OF 10/2006 left foot surgery (bone cyst in heel, removed) PAST SURGICAL HISTORY OF 2014 bilateral carpel tunnel PAST SURGICAL HISTORY OF Right 10/2016 trigger finger release x2 STENT PLACEMENT 01/06/2017 stents to mid and proximal left anterior descending Art, and angio of ostium of #2 diagonal STRESS TEST 04/20/2017 WNL TOTAL ABDOMINAL HYSTERECT W/WO RMVL TUBE OVARY 1995 LEDA for benign fibroid, ovaries intact ALLERGIES Brilinta [Ticagrelor], Crestor [Rosuvastatin], Keflex [Cephalexin], Lipitor [Atorvastatin], Lovastatin, and Delphos [Hydrocodone-Acetaminophen] MEDICATIONS ezetimibe (ZETIA) 10 mg tablet Take 1 tablet by mouth once daily. hydroCHLOROthiazide (HYDRODIURIL, ESIDRIX) 25 mg tablet Take 1 tablet by mouth once daily. dulaglutide (TRULICITY) 3 mg/0.5 mL pen injector Inject 3 mg subcutaneously one time a week. metFORMIN (GLUCOPHAGE) 500 mg tablet Take 2 tablets by mouth twice daily with meals. cyclobenzaprine (FLEXERIL) 10 mg tablet Take 1 tablet by mouth three times daily as needed for muscle spasm. omeprazole (PRILOSEC) 40 mg capsule Take 1 capsule by mouth once daily. potassium chloride SR (MICRO-K) 10 mEq CR capsule Take 2 capsules by mouth twice daily. tamoxifen (NOLVADEX) 20 mg tablet Take 1 tablet (20 mg) by mouth once daily. ammonium lactate (LAC-HYDRIN) 12 % lotion Apply 1 application to affected area twice daily as needed. Clobetasol Propionate 0.05 % gel Apply 1 application to affected area as needed. doxycycline monohydrate (MONODOX) 50 mg capsule Take 50 mg by mouth as needed. calcium citrate/vitamin D3 (CALCIUM CITRATE + D ORAL) Take 1 tablet by mouth once daily. acetaminophen (TYLENOL) 500 mg tablet Take 1,000 mg by mouth every 8 hours as needed. nitroglycerin sublingual (NITROQUICK) 0.4 mg SL tablet Dissolve 1 tablet under the tongue every 5 minutes as needed for Chest Pain. ketoconazole (NIZORAL) 2 % shampoo Apply 1 application to affected area once daily as needed. MAGNESIUM SULFATE ORAL Take 500 mg by mouth once daily. montelukast (SINGULAIR) 10 mg tablet Take 10 mg by mouth daily at bedtime. metoprolol succinate ER (TOPROL XL) 25 mg 24 hr tablet Take 1 tablet by mouth twice daily. Per Dr. Gomez lisinopril (ZESTRIL, PRINIVIL) 5 mg tablet Take 1 tablet by mouth once daily. LACTOBACILLUS ACIDOPHILUS (PROBIOTIC ORAL) Take 1 tablet by mouth once daily. CPAP predniSONE (DELTASONE) 20 mg tablet Take 1 tablet by mouth once daily for 5 days. benzonatate (TESSALON PERLES) 100 mg capsule Take 1 capsule by mouth three times daily as needed for cough for up to 7 days. FAMILY HISTORY Problem Relation Age of Onset other (Pancreatic cancer) Mother Coronary Artery Disease Father 25 HI @ 25. CABG Diabetes Father Diabetes Paternal Grandmother Diabetes Maternal Grandfather other (Lung cancer) Brother other (suicide) Son may of been depression Social History Tobacco Use Smoking status: Former Packs/day: 1.50 Years: 3.00 Pack years: 4.50 Types: Cigarettes Quit date: 11/08/1994 Years since quittin.0 Smokeless tobacco: Never Tobacco comments: smoked 3 years in mid 90s Vaping Use Vaping Use: Never used Substance Use Topics Alcohol use: No Drug use: No ASSESSMENT/PLAN: 1. URI, acute - ICD9: 465.9, ICD10: J06.9 - COVID WITH FLUA+B, ROUTINE Prednisone daily for 5 days Tessalon Micky as needed. Prescription instructions reviewed with patient as applicable. Potential red flag symptoms discussed with the patient. Reviewed appropriate action plan to take if red flag symptoms occur. Patient agreeable to treatment plan. Shaneka Lopez APRN.ELIZABETH documented in this encounter [facility] 10-28-2022 Miscellaneous Notes I called and let patient know the below information and she stated understanding. I scheduled her for a follow-up on 02/26/22 @ 10:00 am, she confirmed this date and time. Jill Alvarez Pss Please inform pt. there are no concerning findings on L dx mammogram. B/l mammogram due end of February-already scheduled. Please schedule OV afterwards. Thank you. 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 APRN.ADVICE LINE RN documented in this encounter [facility] 10-28-2022 History of Present illness Narrative Radiology Service Progress Note PATIENT NAME: Luz Marina Avila DATE OF SERVICE: October 28, 2022 TIME: 9:40 AM PATIENT IDENTITY VERIFICATION COMPLETED USING TWO (2) IDENTIFIERS: Name and Date of confirmed by patient verbally. FALL SCREENING: Has the patient had 2 falls in the last year or 1 fall with injury or currently using an Ambulatory Assistive Device (Walker, Cane, Wheelchair, Crutches, etc.)? No PATIENT GENDER DATA: Female. status: : No status: NO. PATIENT RELEVANT IMPLANT DATA REVIEWED: Not Applicable RADIOLOGY DEPARTMENT: Mammography PERIPHERAL IV DATA: Not applicable SIGNED BY: RT Eugene(R) October 28, 2022 9:40 AM documented in this encounter [facility] 10-05-2022 History of Present illness Narrative Chief Complaint Patient presents with: 6 Month Exam HPI uLz Marina Avila is a 67 year old female who presents here today for Chronic Medical Conditions.. Patient with hx of HTN, hyperlipidemia, SEBAS, DM2, CAD, hyperparathyroid, hx of breast cancer, and those as below. Patient overall doing okay. Has had some left sided mid to upper back pain. Comes and goes. No injury that she can recall. Past medical history, appointments, medications, allergies reviewed. 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 Has been on provigil for 5-10 yrs Obstructive sleep apnea on CPAP Sibilia Psoriasis Rosacea with ocular symptoms S/P angioplasty with stent 01/09/2017 stents to mid and proximal left anterior descending Art, and angio of ostium of #2 diagonal Scalp itch Seasonal allergies Dr Pompa Vitamin D deficiency 2012 Well adult exam 01/16/2016 Last done: 09/08/2018 Previous Surgical History PAST SURGICAL HISTORY Procedure Laterality Date 2D ECHO (EXEP) 06/30/2017 EF=65%, trivial HI, TI and 1+ PI Unchanged from 04/2017 2D ECHO (EXEP) 05/14/2021 EF=60%, 1+ TI, trival HI, AI, PI 2D ECHO (EXEP) 09/16/2021 EF=60%, no significant valve disease BREAST LUMPECTOMY HX Left 04/08/2021 BUNIONECTOMY, LAPIDUS-TYPE 2009 left great toe BX BREAST W/DEVICE 1ST LESION STEREOTACTIC GUID Left 03/25/2021 DELIVERY ONLY CHOLECYSTECTOMY 2004 Cholecystectomy COLONOSCOPY 08/07/2015 no polyps, recheck 3-5 yrs COLONOSCOPY & POLYPECTOMY 10/12, 10/13 Dr Avila; hyperplastic polyps COLONOSCOPY FLX DX W/COLLJ SPEC WHEN PFRMD 08/09/2018 Colonoscopy ESOPHAGOGASTRODUODENOSCOPY TRANSORAL DIAGNOSTIC 08/09/2018 EGD HEART CATHETERIZATION 2004 heart cath-normal per patient HEART CATHETERIZATION 01/04/2017 EF=60%, left anterior desending septal perferator 95-99% stenosis and diagonal branch 85% stenosis, HEART CATHETERIZATION 10/2018 HEART SURGERY HX 12/2016 Cardiac stents x 2 LOW BACK DISK SURGERY 2010 microdecompression L4 L5 MASTECTOMY, PARTIAL Left 04/08/2021 PAST SURGICAL HISTORY OF 2004 parathyroidectomy x1 PAST SURGICAL HISTORY OF lipoma x2 PAST SURGICAL HISTORY OF 10/2006 left foot surgery (bone cyst in heel, removed) PAST SURGICAL HISTORY OF 2014 bilateral carpel tunnel PAST SURGICAL HISTORY OF Right 10/2016 trigger finger release x2 STENT PLACEMENT 01/06/2017 stents to mid and proximal left anterior descending Art, and angio of ostium of #2 diagonal STRESS TEST 04/20/2017 WNL TOTAL ABDOMINAL HYSTERECT W/WO RMVL TUBE OVARY 1995 LEDA for benign fibroid, ovaries intact Family History FAMILY HISTORY Problem Relation Age of Onset other (Pancreatic cancer) Mother Coronary Artery Disease Father 25 HI @ 25. CABG Diabetes Father Diabetes Paternal Grandmother Diabetes Maternal Grandfather other (Lung cancer) Brother other (suicide) Son may of been depression Patient Allergies ALLERGIES Allergen Reactions Brilinta [Ticagrelo* Shortness of Breath Crestor [Rosuvastat* Myalgia Keflex [Cephalexin] Other: See Comments facial flushing Lipitor [Atorvastat* Other: See Comments myalgia Lovastatin Other: See Comments myalgia Delphos [Hydrocodone-* Itching Current Medications Current Outpatient Medications on File Prior to Visit Medication Sig omeprazole (PRILOSEC) 40 mg capsule Take 1 capsule by mouth once daily. potassium chloride SR (MICRO-K) 10 mEq CR capsule Take 2 capsules by mouth twice daily. tamoxifen (NOLVADEX) 20 mg tablet Take 1 tablet (20 mg) by mouth once daily. ezetimibe (ZETIA) 10 mg tablet Take 1 tablet by mouth once daily. hydroCHLOROthiazide (HYDRODIURIL, ESIDRIX) 25 mg tablet Take 1 tablet by mouth once daily. dulaglutide (TRULICITY) 3 mg/0.5 mL pen injector Inject 3 mg subcutaneously one time a week. ammonium lactate (LAC-HYDRIN) 12 % lotion Apply 1 application to affected area twice daily as needed. Clobetasol Propionate 0.05 % gel Apply 1 application to affected area as needed. doxycycline monohydrate (MONODOX) 50 mg capsule Take 50 mg by mouth as needed. calcium citrate/vitamin D3 (CALCIUM CITRATE + D ORAL) Take 1 tablet by mouth once daily. acetaminophen (TYLENOL) 500 mg tablet Take 1,000 mg by mouth every 8 hours as needed. nitroglycerin sublingual (NITROQUICK) 0.4 mg SL tablet Dissolve 1 tablet under the tongue every 5 minutes as needed for Chest Pain. ketoconazole (NIZORAL) 2 % shampoo Apply 1 application to affected area once daily as needed. MAGNESIUM SULFATE ORAL Take 500 mg by mouth once daily. montelukast (SINGULAIR) 10 mg tablet Take 10 mg by mouth daily at bedtime. metoprolol succinate ER (TOPROL XL) 25 mg 24 hr tablet Take 1 tablet by mouth twice daily. Per Dr. Gomez lisinopril (ZESTRIL, PRINIVIL) 5 mg tablet Take 1 tablet by mouth once daily. LACTOBACILLUS ACIDOPHILUS (PROBIOTIC ORAL) Take 1 tablet by mouth once daily. CPAP metFORMIN (GLUCOPHAGE) 500 mg tablet Take 2 tablets by mouth twice daily with meals. No current facility-administered medications on file prior to visit. Social History Social History Tobacco Use Smoking status: Former Packs/day: 1.50 Years: 3.00 Pack years: 4.50 Types: Cigarettes Quit date: 11/08/1994 Years since quittin.9 Smokeless tobacco: Never Tobacco comments: smoked 3 years in mid 90s Vaping Use Vaping Use: Never used Substance Use Topics Alcohol use: No Drug use: No Review of Symptoms REVIEW OF SYSTEMS GENERAL: No weight loss, malaise or fevers NECK: Negative for lumps, goiter, pain and significant neck swelling RESPIRATORY: Negative for cough, hemoptysis, wheezing, COPD, dyspnea or shortness of breath CARDIOVASCULAR: Negative for chest pain, leg swelling, hypertension, CHF. +palpitations and worked up by Cardio recently. Holter showed PACs and PVCs and they are monitoring. NEURO: No history of headaches, syncope, paralysis, seizures or tremors EXAM: BP 110/80 (BP Site: Left Arm, BP Position: Sitting, BP Cuff Size: Large Adult) Pulse 72 Temp 36.2 C (97.1 F) Resp 16 Wt 67.1 kg (148 lb) BMI 25.90 kg/m General Appearance: Well appearing, alert, in no acute distress, well-hydrated, well nourished.. Neck: Supple, no adenopathy; thyroid symmetric, normal size, no bruits. Lungs: Lungs clear to auscultation. No wheezing, rhonchi, rales.. Heart: RRR without murmur, gallop, or rubs. No ectopy. Extremities: No deformities, edema, skin discoloration, clubbing or cyanosis. Good capillary refill. . Musculoskeletal: tender to palp over left upper back and shoulder blade. FROM. . Peripheral Pulses: normal. Health Maintenance List DEPRESSION ASSESSMENT Never done ADVANCE DIRECTIVE DISCUSSION Never done PNEUMOCOCCAL: 67+(3 - PPSV23 if available, else PCV20) due on 2022 MAMMOGRAM due on 02/23/2023 HBA1C due on 03/15/2023 URINE ALBUMIN:CREATININE RATIO due on 03/30/2023 DIABETIC FOOT EXAM due on 04/03/2023 DILATED RETINAL EXAM due on 05/30/2023 ANNUAL PCP TEAM CHRONIC DISEASE VISIT due on 09/03/2023 BP CONTROLLED (<130/80) due on 09/03/2023 LDL CHOLESTEROL due on 09/15/2023 DTAP,TDAP,TD(2 - Td or Tdap) due on 02/24/2024 COLORECTAL CANCER SCREENING due on 08/09/2028 BONE DENSITY Completed HEPATITIS C SCREENING Completed SHINGRIX VACCINE Completed COVID-19 VACCINE Completed INFLUENZA Discontinued HIV SCREENING Discontinued Data reviewed Component Latest Ref Rng & Units 09/15/2022 Total Cholesterol, Nonfasting <200 mg/dL 154 Triglycerides, Nonfasting <150 mg/dL 164 (H) HDL Cholesterol, Nonfasting >39 mg/dL 31 (L) LDL Cholesterol, Nonfasting <100 mg/dL 90 Non HDL Cholesterol, Nonfasting <130 mg/dL 123 VLDL Cholesterol, Nonfasting <30 mg/dL 33 (H) Total Chol/HDL Ratio, Nonfasting <5.10 mg/dL 4.97 LDL/HDL Ratio, Nonfasting <2.54 mg/dL 2.90 (H) Hemoglobin A1C 4.3 - 5.6 % 6.0 (H) Estimated Average Glucose mg/dL 126 ASSESSMENT/PLAN: 1. Controlled type 2 diabetes mellitus without complication, without long-term current use of insulin (HCC) - ICD9: 250.00, ICD10: E11.9 (primary diagnosis) Controlled. - Continue current medications - BP goal of <130/80 - LDL goal of <100 - URINALYSIS, WITH MICROSCOPIC - ALBUMIN/CREAT RATIO RND UR - HGB A1C - COMP METABOLIC PANEL - CBC + DIFF 2. Essential hypertension - ICD9: 401.9, ICD10: I10 - good control - Continue current medication(s) - Recommended regular aerobic exercise. - Recommend home blood pressure monitoring, to bring results in on next visit - Goal of BP <130/80 - URINALYSIS, WITH MICROSCOPIC - COMP METABOLIC PANEL 3. Mixed hyperlipidemia - ICD9: 272.2, ICD10: E78.2 - good control - Encouraged following a low fat, low cholesterol diet. - Discussed the benefits of regular aerobic exercise and weight loss. - Encouraged following a low carbohydrate, healthy oil intake diet. - Continue current therapy. - LIPID PANEL, NONFASTING 4. Vitamin D deficiency - ICD9: 268.9, ICD10: E55.9 - VITAMIN D 25 HYDROXY 5. Upper back pain - ICD9: 724.5, ICD10: M54.[address] chest shows degenerative changes in Spine. Could consider further imaging if not improving. Start with some Home therapy. We discussed Physical Therapy but patient already has a chiro she can visit. Prn flexeril 6. Need for vaccination - ICD9: V05.9, ICD10: Z23 - PNEUMOCOCCAL IMMUNIZATION PPSV 23 7. 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) - ICD9: 414.01, 413.9, ICD10: I25.118 Cont with cardio 8. Ductal carcinoma in situ (DCIS) of left breast - ICD9: 233.0, ICD10: D05.12 Cont with oncology 9. History of hyperparathyroidism - ICD9: V12.29, ICD10: Z86.39 Follow up in 6 months for wellness labs prior.. Cherise Sifuentes PA-C documented in this encounter [facility] 09-18-2022 Miscellaneous Notes Pt called and is notified of providers results and instructions. Pt voices understanding. Seema Escobar RN Left message for patient to contact office. Tahmina Lopez MA Let patient know her A1c is very good at 6% Her lipid panel showed Trigs slightly;y elevated at 164 (goal<150), HDL low at 31 (goal>50 and was 28), LDL stable at 90 with being on the Zetia. Cont to work on increased walking and reduced fat in diet. documented in this encounter [facility] 09-16-2022 Miscellaneous Notes Pt notifying provider that she has seen testing results for CT. Please advise. Thank you. Cyndi Marinelli, CT documented in this encounter [facility] 09-16-2022 Miscellaneous Notes Spoke with patient and scheduled CT. Sylwia Hedrick Patient is aware of all information and verbalized understanding. Patient will contact breast larwill to schedule. PSS- CT abd/pelvis show a subcentimeter hypodense too small to characterize left hepatic lesion. Will plan to repeat CT in 10-12 weeks. Patient is aware of this information. Please contact patient to schedule CT. She is expecting the call. Suki Ambrocio LPN Please have patient call the breast center at [phone] to schedule dx mammogram when relaying information below. Thank you. Please inform pt. that her CT chest shows no acute changes. Radiologist is recommending a L dx mammogram/US to further evaluate ? soft tissue nodular opacity. Please schedule L dx mamm/US soon. CT abd/pelvis show a subcentimeter hypodense too small to characterize left hepatic lesion. Will plan to repeat CT in 10-12 weeks. Thank you. 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 APRN.ADVICE LINE RN documented in this encounter [facility] 09-09-2022 Miscellaneous Notes Pt was notified of results via phone. See TE 09/09/22. Latrice Dunn LPN documented in this encounter [facility] 09-09-2022 Miscellaneous Notes Patient notified of results and provider's instructions. Patient verbalizes understanding. Latrice Dunn LPN US of abdomen is okay. Shows fatty liver. Await CT scan results. H. Pylori test was negative. Looking at Dr. Harman note, he wanted to start a PPI after the h.pylori test. I will send one in for her to start. Cherise Sifuentes PA-C documented in this encounter [facility] 09-09-2022 History of Present illness Narrative Radiology Service Progress Note PATIENT NAME: Luz Marina Avila DATE OF SERVICE: September 09, 2022 TIME: 8:26 AM PATIENT IDENTITY VERIFICATION COMPLETED USING TWO (2) IDENTIFIERS: Name and Date of confirmed by patient verbally. FALL SCREENING: Has the patient had 2 falls in the last year or 1 fall with injury or currently using an Ambulatory Assistive Device (Walker, Cane, Wheelchair, Crutches, etc.)? No PATIENT GENDER DATA: Female. status: : No status: NO. PATIENT RELEVANT IMPLANT DATA REVIEWED: Not Applicable RADIOLOGY DEPARTMENT: Ultrasound PERIPHERAL IV DATA: Not applicable SIGNED BY: Echo Fernandez RDMS September 09, 2022 8:26 AM documented in this encounter [facility] 09-08-2022 History of Present illness Narrative Patient presented for H. Pylori Breath testing per Dr Hung. Obtained baseline sample at 9:05am. Patient then drank Pranactin-Citric solution. Waited full 15 minutes and obtained second sample at 9:22am. Patient tolerated testing well with no problems. LOT # [id number] EXP 09/07/2024 Jocelyne Sands LPN documented in this encounter [facility] 09-07-2022 Miscellaneous Notes Patient contacted and scheduled. Given instructions voiced understanding. Tahmina Lopez MA documented in this encounter [facility] 09-03-2022 History of Present illness Narrative Chief Complaint Patient presents with: Nausea HPI Luz Marina Avila is a 67 year old female who presents here today for not feeling well. Patient with hx of DM, Hyperlipidemia, hypertension, CAD, SEBAS, Hx of TIA, Vit D def as well as those reviewed and addressed below and in ROS. Patient had sent me a my chart message on 08/28/2022 stating: I went to see 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 today (please see notes on my chart). She is very concerned that I'm not feeling well and told me to follow up with you but also went ahead and scheduled some tests and talked about possibly doing an EGD with Dr. Brand. She stressed that she wanted me to share all this with you right away. I have many days where I just don't feel well over all and I still don't eat more than 1 full meal a day. Being that there has been cancer in my history and my family's she feels I should be checked thoroughly and more often. I have some upper gastric pain occasionally and still deal with IBS (still taking Dicyclomine). Heartburn sometimes still and use Famotidine (not on a regular basis). Tums help sometimes too.: Patient has been having these symptoms for the past 3 months. Last time she took the pepcid was about a week ago. Sometimes will awaken with a sour taste in her throat. On occasional may wake up with a cough. Still has the loose stools with certain foods but no changes from her base line. No melena or hematochezia. Sometimes the stool is geriatric nurse practitioner in color. No longer has a gal bladder. No recent fevers. Has a CT of the abdomen and pelvis set up for 09/15/2022. Mother with Hx of pancreatic cancer. Past medical history, appointments, medications, allergies reviewed. 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 Has been on provigil for 5-10 yrs Obstructive sleep apnea on CPAP Sibilia Psoriasis Rosacea with ocular symptoms S/P angioplasty with stent 01/09/2017 stents to mid and proximal left anterior descending Art, and angio of ostium of #2 diagonal Scalp itch Seasonal allergies Dr Pompa Vitamin D deficiency 2013 Well adult exam 01/16/2016 Last done: 09/08/2018 Previous Surgical History PAST SURGICAL HISTORY Procedure Laterality Date 2D ECHO (EXEP) 06/30/2017 EF=65%, trivial HI, TI and 1+ PI Unchanged from 04/2017 2D ECHO (EXEP) 05/14/2021 EF=60%, 1+ TI, trival HI, AI, PI 2D ECHO (EXEP) 09/16/2021 EF=60%, no significant valve disease BREAST LUMPECTOMY HX Left 04/08/2021 BUNIONECTOMY, LAPIDUS-TYPE 2009 left great toe BX BREAST W/DEVICE 1ST LESION STEREOTACTIC GUID Left 03/25/2021 DELIVERY ONLY CHOLECYSTECTOMY 2004 Cholecystectomy COLONOSCOPY 08/07/2015 no polyps, recheck 3-5 yrs COLONOSCOPY & POLYPECTOMY 10/12, 10/13 Dr Avila; hyperplastic polyps COLONOSCOPY FLX DX W/COLLJ SPEC WHEN PFRMD 08/09/2018 Colonoscopy ESOPHAGOGASTRODUODENOSCOPY TRANSORAL DIAGNOSTIC 08/09/2018 EGD HEART CATHETERIZATION 2004 heart cath-normal per patient HEART CATHETERIZATION 01/04/2017 EF=60%, left anterior desending septal perferator 95-99% stenosis and diagonal branch 85% stenosis, HEART CATHETERIZATION 10/2018 HEART SURGERY HX 12/2016 Cardiac stents x 2 LOW BACK DISK SURGERY 2010 microdecompression L4 L5 MASTECTOMY, PARTIAL Left 04/08/2021 PAST SURGICAL HISTORY OF 2004 parathyroidectomy x1 PAST SURGICAL HISTORY OF lipoma x2 PAST SURGICAL HISTORY OF 10/2006 left foot surgery (bone cyst in heel, removed) PAST SURGICAL HISTORY OF 2014 bilateral carpel tunnel PAST SURGICAL HISTORY OF Right 10/2016 trigger finger release x2 STENT PLACEMENT 01/06/2017 stents to mid and proximal left anterior descending Art, and angio of ostium of #2 diagonal STRESS TEST 04/20/2017 WNL TOTAL ABDOMINAL HYSTERECT W/WO RMVL TUBE OVARY 1995 LEDA for benign fibroid, ovaries intact Family History FAMILY HISTORY Problem Relation Age of Onset other (Pancreatic cancer) Mother Coronary Artery Disease Father 25 HI @ 25. CABG Diabetes Father Diabetes Paternal Grandmother Diabetes Maternal Grandfather other (Lung cancer) Brother other (suicide) Son may of been depression Patient Allergies ALLERGIES Allergen Reactions Brilinta [Ticagrelo* Shortness of Breath Crestor [Rosuvastat* Myalgia Keflex [Cephalexin] Other: See Comments facial flushing Lipitor [Atorvastat* Other: See Comments myalgia Lovastatin Other: See Comments myalgia Delphos [Hydrocodone-* Itching Current Medications Current Outpatient Medications on File Prior to Visit Medication Sig potassium chloride SR (MICRO-K) 10 mEq CR capsule Take 2 capsules by mouth twice daily. tamoxifen (NOLVADEX) 20 mg tablet Take 1 tablet (20 mg) by mouth once daily. ezetimibe (ZETIA) 10 mg tablet Take 1 tablet by mouth once daily. hydroCHLOROthiazide (HYDRODIURIL, ESIDRIX) 25 mg tablet Take 1 tablet by mouth once daily. metFORMIN (GLUCOPHAGE) 500 mg tablet Take 2 tablets by mouth twice daily with meals. dulaglutide (TRULICITY) 3 mg/0.5 mL pen injector Inject 3 mg subcutaneously one time a week. ammonium lactate (LAC-HYDRIN) 12 % lotion Apply 1 application to affected area twice daily as needed. Clobetasol Propionate 0.05 % gel Apply 1 application to affected area as needed. doxycycline monohydrate (MONODOX) 50 mg capsule Take 50 mg by mouth as needed. calcium citrate/vitamin D3 (CALCIUM CITRATE + D ORAL) Take 1 tablet by mouth once daily. acetaminophen (TYLENOL) 500 mg tablet Take 1,000 mg by mouth every 8 hours as needed. nitroglycerin sublingual (NITROQUICK) 0.4 mg SL tablet Dissolve 1 tablet under the tongue every 5 minutes as needed for Chest Pain. ketoconazole (NIZORAL) 2 % shampoo Apply 1 application to affected area once daily as needed. MAGNESIUM SULFATE ORAL Take 500 mg by mouth once daily. montelukast (SINGULAIR) 10 mg tablet Take 10 mg by mouth daily at bedtime. metoprolol succinate ER (TOPROL XL) 25 mg 24 hr tablet Take 1 tablet by mouth twice daily. Per Dr. Gomez lisinopril (ZESTRIL, PRINIVIL) 5 mg tablet Take 1 tablet by mouth once daily. LACTOBACILLUS ACIDOPHILUS (PROBIOTIC ORAL) Take 1 tablet by mouth once daily. CPAP No current facility-administered medications on file prior to visit. Social History Social History Tobacco Use Smoking status: Former Packs/day: 1.50 Years: 3.00 Pack years: 4.50 Types: Cigarettes Quit date: 11/08/1994 Years since quittin.8 Smokeless tobacco: Never Tobacco comments: smoked 3 years in mid 90s Vaping Use Vaping Use: Never used Substance Use Topics Alcohol use: No Drug use: No Review of Symptoms REVIEW OF SYSTEMS See HPI EXAM: BP 120/76 (BP Site: Right Arm, BP Position: Sitting, BP Cuff Size: Regular Adult) Pulse 84 Wt 67.6 kg (149 lb) SpO2 96% BMI 26.07 kg/m General Appearance: Well appearing, alert, in no acute distress, well-hydrated, well nourished.. Abdomen: Abdomen soft, mild epigastric tenderness without guarding. Bowel sounds normal. No masses, organomegaly. Health Maintenance List DEPRESSION ASSESSMENT Never done COVID-19 VACCINE(5 - Booster for Moderna series) due on 12/26/2021 DILATED RETINAL EXAM due on 05/24/2022 ADVANCE DIRECTIVE DISCUSSION Never done PNEUMOCOCCAL: 65+(3 - PPSV23 if available, else PCV20) due on 2022 HBA1C due on 09/30/2022 MAMMOGRAM due on 02/23/2023 URINE ALBUMIN:CREATININE RATIO due on 03/30/2023 LDL CHOLESTEROL due on 03/30/2023 DIABETIC FOOT EXAM due on 04/03/2023 ANNUAL PCP TEAM CHRONIC DISEASE VISIT due on 04/03/2023 BP CONTROLLED (<130/80) due on 08/28/2023 DTAP,TDAP,TD(2 - Td or Tdap) due on 02/24/2024 COLORECTAL CANCER SCREENING due on 08/09/2028 BONE DENSITY Completed HEPATITIS C SCREENING Completed SHINGRIX VACCINE Completed INFLUENZA Discontinued HIV SCREENING Discontinued Data reviewed A/P ASSESSMENT/PLAN: 1. Epigastric pain - ICD9: 789.06, ICD10: R10.13 (primary diagnosis) - HEPATIC FUNCTION PNL - LIPASE BLD - AMYLASE BLD - CBC + DIFF - BREATH TEST H PYLORI - US ABD RT UPPER QUADRANT - CONSULT TO GASTROENTEROLOGY Will await H. Pylori test and then get started on a PPI 2. Nausea - ICD9: 787.02, ICD10: R11.0 - CONSULT TO GASTROENTEROLOGY: Dr. Ortiz Moya 3. Need for vaccination - ICD9: V05.9, ICD10: Z23 - INFLUENZA SEASONAL QUADRIVALENT HIGH DOSE AGE 65+ Clifton Hung MD documented in this encounter [facility] 08-28-2022 Miscellaneous Notes Patient contacted and scheduled. Tahmina Lopez MA See if she can come Wednesday evening. I have some one day holds then. Dr. Hung how soon would you like her seen. She is scheduled with Cherise 10/05/2022 for 6 month follow up. Tahmina Lopez MA documented in this encounter [facility] 08-28-2022 Instructions Sima Dumont APRN.ELIZABETH - 08/28/2022 10:40 AM EDT Silicone based lubricant such as Astroglide. Look for one that is hypoallergenic. Continue Revaree. Continue using Aquaphor and minimize use of incontinence pads to protect the skin. documented in this encounter [facility] 08-28-2022 History of Present illness Narrative Robotic Technician offered: Patient declines. Luz Marina Avila is a 67 year old female who presents for problem visit follow-up vaginal itching. HPI: Has used Revaree for past month and vaginal itching has completely resolved. Continues to have some burning with SI but this has improved by 40%. No longer wears protection during the night for incontinence. OB History T0 L2 SAB0 IAB0 Ectopic0 Multiple0 Live Births3 Lawn Care Technician History LMP: Hysterectomy Age at Menarche: Age at First : Age at Menopause: Lawn Care Technician History Comments: Sexual Activity: Yes; Male Contraception: No contraception data on record PAST MEDICAL HISTORY Diagnosis Date Amaurosis fugax 10/29/2017 TIA; right visual disturbance 06/2017 Arthritis tendonitis, arthritis Atherosclerosis of tetlin coronary artery with stable angina pectoris (HCC) 01/09/[address] 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 Has been on provigil for 5-10 yrs Obstructive sleep apnea on CPAP Sibilia Psoriasis Rosacea with ocular symptoms S/P angioplasty with stent 01/09/2017 stents to mid and proximal left anterior descending Art, and angio of ostium of #2 diagonal Scalp itch Seasonal allergies Dr Pompa Vitamin D deficiency 2012 Well adult exam 01/16/2016 Last done: 09/08/2018 PAST SURGICAL HISTORY Procedure Laterality Date 2D ECHO (EXEP) 06/30/2017 EF=65%, trivial HI, TI and 1+ PI Unchanged from 04/2017 2D ECHO (EXEP) 05/14/2021 EF=60%, 1+ TI, trival HI, AI, PI 2D ECHO (EXEP) 09/16/2021 EF=60%, no significant valve disease BREAST LUMPECTOMY HX Left 04/08/2021 BUNIONECTOMY, LAPIDUS-TYPE 2010 left great toe BX BREAST W/DEVICE 1ST LESION STEREOTACTIC GUID Left 03/25/2021 DELIVERY ONLY CHOLECYSTECTOMY 2004 Cholecystectomy COLONOSCOPY 08/07/2015 no polyps, recheck 3-5 yrs COLONOSCOPY & POLYPECTOMY 10/12, 10/13 Dr Avila; hyperplastic polyps COLONOSCOPY FLX DX W/COLLJ SPEC WHEN PFRMD 08/09/2018 Colonoscopy ESOPHAGOGASTRODUODENOSCOPY TRANSORAL DIAGNOSTIC 08/09/2018 EGD HEART CATHETERIZATION 2004 heart cath-normal per patient HEART CATHETERIZATION 01/04/2017 EF=60%, left anterior desending septal perferator 95-99% stenosis and diagonal branch 85% stenosis, HEART CATHETERIZATION 10/2018 HEART SURGERY HX 12/2016 Cardiac stents x 2 LOW BACK DISK SURGERY 2010 microdecompression L4 L5 MASTECTOMY, PARTIAL Left 04/08/2021 PAST SURGICAL HISTORY OF 2004 parathyroidectomy x1 PAST SURGICAL HISTORY OF lipoma x2 PAST SURGICAL HISTORY OF 10/2006 left foot surgery (bone cyst in heel, removed) PAST SURGICAL HISTORY OF 2014 bilateral carpel tunnel PAST SURGICAL HISTORY OF Right 10/2016 trigger finger release x2 STENT PLACEMENT 01/06/2017 stents to mid and proximal left anterior descending Art, and angio of ostium of #2 diagonal STRESS TEST 04/20/2017 WNL TOTAL ABDOMINAL HYSTERECT W/WO RMVL TUBE OVARY 1995 LEDA for benign fibroid, ovaries intact FAMILY HISTORY Problem Relation Age of Onset other (Pancreatic cancer) Mother Coronary Artery Disease Father 25 HI @ 25. CABG Diabetes Father Diabetes Paternal Grandmother Diabetes Maternal Grandfather other (Lung cancer) Brother other (suicide) Son may of been depression Social History Tobacco Use Smoking status: Former Packs/day: 1.50 Years: 3.00 Pack years: 4.50 Types: Cigarettes Quit date: 11/08/1994 Years since quittin.8 Smokeless tobacco: Never Tobacco comments: smoked 3 years in mid Vaping Use Vaping Use: Never used Substance Use Topics Alcohol use: No Drug use: No Current Outpatient Medications Medication Sig enteric contrast (will be provided with radiology test) For CT CHESTABD/PEL W IVCON Routine order Administer, As Directed One Time Only, via Oral, Rectal, both Oral and Rectal, Enteric Tube, Stoma or Indwelling Catheter, Enteric Contrast as designated per enteric contrast guidelines potassium chloride SR (MICRO-K) 10 mEq CR capsule Take 2 capsules by mouth twice daily. tamoxifen (NOLVADEX) 20 mg tablet Take 1 tablet (20 mg) by mouth once daily. ezetimibe (ZETIA) 10 mg tablet Take 1 tablet by mouth once daily. hydroCHLOROthiazide (HYDRODIURIL, ESIDRIX) 25 mg tablet Take 1 tablet by mouth once daily. metFORMIN (GLUCOPHAGE) 500 mg tablet Take 2 tablets by mouth twice daily with meals. dulaglutide (TRULICITY) 3 mg/0.5 mL pen injector Inject 3 mg subcutaneously one time a week. ammonium lactate (LAC-HYDRIN) 12 % lotion Apply 1 application to affected area twice daily as needed. Clobetasol Propionate 0.05 % gel Apply 1 application to affected area as needed. doxycycline monohydrate (MONODOX) 50 mg capsule Take 50 mg by mouth as needed. calcium citrate/vitamin D3 (CALCIUM CITRATE + D ORAL) Take 1 tablet by mouth once daily. acetaminophen (TYLENOL) 500 mg tablet Take 1,000 mg by mouth every 8 hours as needed. nitroglycerin sublingual (NITROQUICK) 0.4 mg SL tablet Dissolve 1 tablet under the tongue every 5 minutes as needed for Chest Pain. ketoconazole (NIZORAL) 2 % shampoo Apply 1 application to affected area once daily as needed. MAGNESIUM SULFATE ORAL Take 500 mg by mouth once daily. montelukast (SINGULAIR) 10 mg tablet Take 10 mg by mouth daily at bedtime. metoprolol succinate ER (TOPROL XL) 25 mg 24 hr tablet Take 1 tablet by mouth twice daily. Per Dr. Gomez lisinopril (ZESTRIL, PRINIVIL) 5 mg tablet Take 1 tablet by mouth once daily. LACTOBACILLUS ACIDOPHILUS (PROBIOTIC ORAL) Take 1 tablet by mouth once daily. CPAP iv contrast (will be provided with radiology test) CT Chest ABD/PEL-Inject, intravenously, once for 1 dose.No IV access, insert saline lock prior to the beginning of sedation, infusion, injection of imaging exam. Discontinue saline lock post exam. If Pt. has a central line or IVAD, may access for administration according to line specific nursing protocol. Once exam is complete flush line and de-access according to line specific nursing protocol in the CT contrast administration guidelines link. No current facility-administered medications for this visit. Allergies As of Date: 08/28/2022 Allergen Noted Reaction BRILINTA [TICAGRELOR] 06/28/2017 Shortness of Breath CRESTOR [ROSUVASTATIN] 04/10/2020 Myalgia KEFLEX [CEPHALEXIN] 02/02/2006 Other: See Comments LIPITOR [ATORVASTATIN] 07/21/2013 Other: See Comments LOVASTATIN 07/21/2013 Other: See Comments NORCO [HYDROCODONE-ACETAMINOPHEN] 10/29/2016 Itching Fully Assessed 08/28/2022 REVIEW OF SYSTEMS Allergies and current medication updated:Yes EXAM: BP 98/70 Wt 147 lb (66.7kg) GENERAL: pleasant, female in no apparent distress CHEST: Normal inspiratory effort PELVIC: Significant improvement - vulva with mild erythema. Vaginal olmstead less reddened and irritated. NEURO: alert and oriented x3,exam grossly non-focal ASSESSMENT/PLAN: 1. Vaginal atrophy - ICD9: 627.3, ICD10: N95.2 (primary diagnosis) - Has used Revaree for one with 100% resolution of itching/irritation and 40% less burning with intercourse. She is very pleased with results and will continue use. - silicone based lubricant for SI 2. Vulvar dermatitis - ICD9: 692.9, ICD10: L30.9 - Continue using Aquaphor and minimize use of incontinence pads to protect the skin. Follow-up as needed. Sima Dumont APRN.CNP I spent a total of 20 minutes on the date of the service which included preparing to see the patient, [id number] patient care, completing clinical documentation, obtaining and/or reviewing separately obtained history, performing a medically appropriate examination, and counseling and educating the patient/family/caregiver. documented in this encounter [facility] 08-28-2022 History of Present illness Narrative Chief Complaint Patient presents with: Established Patient: 6 MO FOLLOW UP HPI: Luz Marina Avila is a 67 year old female who presents here today for follow up breast cancer. Per Dr. Georges previous note: H/o zig-fugxpyb-gjrnzaleo diabetes mellitus, hypertension, ASCAD, and TIA who presented with an abnormal mammogram. She denies palpable discrete masses, but she notes lumpy breast. She denies nipple discharge. She denies previous breast biopsies. She denies previous breast surgeries. She notes occasional twinges of pain of her chest wall. She notes no breast or ovarian cancer in her family, mother of pancreatic cancer at age 59 and brother of lung cancer at age 58. She had a partial hysterectomy in her late 30s She is not on controls or estrogen replacement therapy Mammograms on 03/11/2021 There are a grouped pleomorphic calcifications in the left breast at 1 o'clock posterior depth. No other significant masses or calcifications are seen in the breast. IMPRESSION: SUSPICIOUS FINDING - BIOPSY SHOULD BE CONSIDERED The grouped pleomorphic calcifications in the left breast are suspicious of malignancy. A stereotactic biopsy is recommended. left stereotactic breast biopsy done on 11/15/2020. Findings of ductal carcinoma in situ Estrogen progesterone receptors positive ( >95%); HER-2/brandin negative (0) left breast lumpectomy for DCIS on 04/08/2021 at [facility] Pathology (from [facility]) reveals - ductal carcinoma in situ...,size of DCIS - 1.0 x 0.4 cm...,architectural type - cribriform..., nuclear grade 1-2..., necrosis - present central (expansive comedo necrosis)..., biopsy cavity is 0.5 cm from closest anterior margin (which is skin)..., ER >95%, AK >95% Postoperative course is unremarkable with no swelling or pain in her lumpectomy site. She is here today to discuss adjuvant therapy and chemoprevention for breast cancer. RADIATION:06/03/21 - 06/24/21 Current therapy:Tamoxifen Began after radiation Appetite: I don't have my appetite since before radiation. Wt. down 9# over past 6 months. Energy level: Some days it's good. Some days it's not so good. Denies fevers. Resp:denies cough or sob-follow up by PULM h/o seasonal allergies/sleep apnea-wears CPAP at hs Cardiac:denies chest pain/occ. palpitations-Followed by cardiology twice yearly GI:+epigastric pain, +heartburn-takes otc tums as needed-has been seen by PCP for this-EGD 4 years ago (2017)-gastritis noted-no PPI-epigastric pain ongoing >1 year, occ. nausea, denies vomiting, h/o IBS moving bowels regularly :denies dysuria/hematuria Extrem:denies pain Endo:occ. hot flashes I'm not sure if it's my blood sugar or a hot flash. Neuro:denies symptoms of neuropathy Skin:denies rashes/lesions Heme:denies bleeding The ROS is otherwise negative. Past medical history, appointments, medications, allergies reviewed. No changes. EXAM: BP 115/76 Pulse 92 Temp 36 C (96.8 F) Ht 161 cm (5' 3.39 ) Wt 67.1 kg (148 lb) BMI 25.90 kg/m APPEARANCE Well appearing, alert, in no acute distress, well-hydrated, well nourished. HEART RRR with normal S1 and S2, no murmurs LUNG clear to auscultation BREAST FEMALE no mass/nodule b/l, scar to L upper/outer/radiation changes LYMPH NODES No cervical lymphadenopathy, No supraclavicular lymphadenopathy, and No axillary lymphadenopathy. ABDOMEN bowel sounds normoactive, soft, +tenderness to epigastric area/upper abd, non-distended EXTREMITIES No edema NEURO Awake, alert and oriented x 3, Normal gait, and No involuntary motions. SKIN Skin color, texture, turgor normal, no suspicious rashes or lesions ASSESSMENT/PLAN: 1. Breast neoplasm, Tis (DCIS), left - ICD9: 233.0, ICD10: D05.12 - +Epigastric pain/reflux/nausea. - She is taking tamoxifen at night with food. - Mammogram due February 2023. - Hold tamoxifen for the next 2 weeks to see if heartburn/nausea improve. If not improvement will resume tamoxifen (and will send me a my chart message with an update). - Pts. mother from pancreas cancer at the age of 57. - Advised pt. that she needs to follow up with PCP to discuss pain/reflux/nausea. - Needs CT chest/abd/pelvis. - Follow up pending CT chest/abd/pelvis. - Pt. aware to call office with any questions/concerns. The patient indicates understanding of these issues and agrees with the plan. All documentation from previous visit of 02/25/22-Dr. Georges/myself was copied and pasted, documentation has been reviewed and edited as necessary for today's visit. 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 APRN.ELIZABETH documented in this encounter [facility] 07-15-2022 Miscellaneous Notes Patient has been identified by name and date of : Yes Last office visit 02/25/22 Next visit 08/27/22 RX INSTRUCTIONS: Patient aware RX will be sent to pharmacy. No need to notify patient. Patient phones requesting refills as follows: Requested Prescriptions Pending Prescriptions Disp Refills tamoxifen (NOLVADEX) 20 mg tablet 90 tablet 3 Sig: Take 1 tablet (20 mg) by mouth once daily. Please review and advise. [place] Pss documented in this encounter [facility] 07-09-2022 Instructions Sima Dumont APRN.ADVICE LINE RN - 07/09/2022 8:21 AM EDT Instructions for yeast infection with diabetes: Monistat 7 or generic - a applicator full at bedtime every other night or 1/2 applicator every night x 2 weeks Hypoallergenic lubricant. Revaree vaginal hyaluronic acid suppositories. Minimize protection - use only urine incontinence pads. Wash vulva well with Dove unscented bar soap, rinse and dry well. Protect skin with Aquaphor. How To Perform Pelvic Floor (Kegel) Exercises These exercises help to strengthen the pelvic floor muscles and can help improve bladder control for women. 1. You should have been instructed in the office how to contract these muscles. At home, you can insert two fingers in the vagina and feel the contraction of these muscles as you squeeze. We call these muscles the pelvic floor because they help support the pelvic organs, especially during coughing and sneezing. Squeezing the pelvic floor while standing feels like you are lifting the area around the vagina, and will interrupt the stream of urine while voiding. Once you are certain which muscles to use, do not exercise while urinating. Make sure you are not bearing down, squeezing your buttocks, or straining abdominally: these are not the muscles to be exercised. You may wish to place hands on your buttock muscles to keep these muscles relaxed while performing the exercises. 2. Squeeze these muscles as hard as you can for a slow count of five, eventually working up to a slow count of ten. Rest for 15 seconds, and then start another contraction. At first. these muscles may feel sore, just as other muscles may feel sore after exercise. 3. You should perform 50 squeezes every day: make sure every squeeze count by rio as hard as you can! Many women try to do these exercises in sets of five or ten at a time. Remind yourself to do these exercises by starting them every time you are waiting at a red light, watching a television commercial, or on hold on the telephone. If you are having trouble concentrating, you may want to set aside a special time to perform sets of pelvic floor exercises. 4. In addition to the long, hard contractions you are doing try doing some quick flicks of these muscles throughout the day. 5. You should be seen in the office after starting these exercises to make sure you are performing the contraction correctly: you may have never known how to contract these muscles before starting pelvic floor exercises, and many patients mistakenly exercise the wrong muscles. If you still feel frustrated about which muscles to use ask us for help. There are physical therapy specialists who work with pelvic floor muscles. 6. Work hard! As with any exercise program, improvement often is related to how faithfully you adhere to your exercise program. Pelvic floor exercises do not have the side effects and expense associated with other treatments for urinary incontinence, and have been known to help with severe stress incontinence. It may take several months to see the full effect of your exercise program: if you are easily discouraged, see your doctor or doctor at regular visits to assess what progress you are making. Techniques to avoid urinary accidents: Empty your bladder regularly and prior to physical activity. Avoid activity that causes leakage, if possible. Avoid or moderate the intake of alcohol and caffeine products. Try to restrict fluids prior to planned activities. Wear appropriate protection. Prevent chronic coughing which can cause a loss of urinary control. Ways to prevent chronic coughing include treating asthma, restricting smoking, and removing allergy-causing agents from your environment. 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 Luz Marina Avila is a 66 year old female who presents for problem visit vaginal itching x 3 weeks HPI: Vaginal itching x 3 weeks. Assumed it was a yeast infection but this episode was a little different because entire vaginal was painful. Also had burning with urination and frequency for past 2 weeks which has improved but is still present. No recent antibiotic use. Has pain with intercourse - especially on inner left vagina. Sometimes lubricant akhtar. Uses vaseline for lubrication because of being sensitive to commercial lubricants. Has stress and urge incontinence 1-2 times/day - wears a pad during daytime hours for protection. 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 Has been on provigil for 5-10 yrs Obstructive sleep apnea on CPAP Sibilia Psoriasis Rosacea with ocular symptoms S/P angioplasty with stent 01/09/2017 stents to mid and proximal left anterior descending Art, and angio of ostium of #2 diagonal Scalp itch Seasonal allergies Dr Popma Vitamin D deficiency 2013 Well adult exam 01/16/2016 Last done: 09/08/2018 PAST SURGICAL HISTORY Procedure Laterality Date 2D ECHO (EXEP) 06/30/2017 EF=65%, trivial HI, TI and 1+ PI Unchanged from 04/2017 2D ECHO (EXEP) 05/14/2021 EF=60%, 1+ TI, trival HI, AI, PI 2D ECHO (EXEP) 09/16/2021 EF=60%, no significant valve disease BREAST LUMPECTOMY HX Left 04/08/2021 BUNIONECTOMY, LAPIDUS-TYPE 2009 left great toe BX BREAST W/DEVICE 1ST LESION STEREOTACTIC GUID Left 03/25/2021 DELIVERY ONLY CHOLECYSTECTOMY 2004 Cholecystectomy COLONOSCOPY 08/07/2015 no polyps, recheck 3-5 yrs COLONOSCOPY & POLYPECTOMY 10/12, 10/13 Dr Avila; hyperplastic polyps COLONOSCOPY FLX DX W/COLLJ SPEC WHEN PFRMD 08/09/2018 Colonoscopy ESOPHAGOGASTRODUODENOSCOPY TRANSORAL DIAGNOSTIC 08/09/2018 EGD HEART CATHETERIZATION 2004 heart cath-normal per patient HEART CATHETERIZATION 01/04/2017 EF=60%, left anterior desending septal perferator 95-99% stenosis and diagonal branch 85% stenosis, HEART CATHETERIZATION 10/2018 HEART SURGERY HX 12/2016 Cardiac stents x 2 LOW BACK DISK SURGERY 2010 microdecompression L4 L5 MASTECTOMY, PARTIAL Left 04/08/2021 PAST SURGICAL HISTORY OF 2004 parathyroidectomy x1 PAST SURGICAL HISTORY OF lipoma x2 PAST SURGICAL HISTORY OF 10/2006 left foot surgery (bone cyst in heel, removed) PAST SURGICAL HISTORY OF 2014 bilateral carpel tunnel PAST SURGICAL HISTORY OF Right 10/2016 trigger finger release x2 STENT PLACEMENT 01/06/2017 stents to mid and proximal left anterior descending Art, and angio of ostium of #2 diagonal STRESS TEST 04/20/2017 WNL TOTAL ABDOMINAL HYSTERECT W/WO RMVL TUBE OVARY 1995 LEDA for benign fibroid, ovaries intact FAMILY HISTORY Problem Relation Age of Onset other (Pancreatic cancer) Mother Coronary Artery Disease Father 25 HI @ 25. CABG Diabetes Father Diabetes Paternal Grandmother Diabetes Maternal Grandfather other (Lung cancer) Brother other (suicide) Son may of been depression Social History Tobacco Use Smoking status: Former Packs/day: 1.50 Years: 3.00 Pack years: 4.50 Types: Cigarettes Quit date: 11/08/1994 Years since quittin.6 Smokeless tobacco: Never Tobacco comments: smoked 3 years in mid 90s Vaping Use Vaping Use: Never used Substance Use Topics Alcohol use: No Drug use: No Current Outpatient Medications Medication Sig ezetimibe (ZETIA) 10 mg tablet Take 1 tablet by mouth once daily. hydroCHLOROthiazide (HYDRODIURIL, ESIDRIX) 25 mg tablet Take 1 tablet by mouth once daily. metFORMIN (GLUCOPHAGE) 500 mg tablet Take 2 tablets by mouth twice daily with meals. dulaglutide (TRULICITY) 3 mg/0.5 mL pen injector Inject 3 mg subcutaneously one time a week. Clobetasol Propionate 0.05 % gel Apply 1 application to affected area as needed. tamoxifen (NOLVADEX) 20 mg tablet Take 1 tablet (20 mg) by mouth once daily. potassium chloride SR (MICRO-K) 10 mEq CR capsule Take 2 capsules by mouth twice daily. nitroglycerin sublingual (NITROQUICK) 0.4 mg SL tablet Dissolve 1 tablet under the tongue every 5 minutes as needed for Chest Pain. ketoconazole (NIZORAL) 2 % shampoo Apply 1 application to affected area once daily as needed. MAGNESIUM SULFATE ORAL Take 500 mg by mouth once daily. montelukast (SINGULAIR) 10 mg tablet Take 10 mg by mouth daily at bedtime. metoprolol succinate ER (TOPROL XL) 25 mg 24 hr tablet Take 1 tablet by mouth twice daily. Per Dr. Gomez lisinopril (ZESTRIL, PRINIVIL) 5 mg tablet Take 1 tablet by mouth once daily. LACTOBACILLUS ACIDOPHILUS (PROBIOTIC ORAL) Take 1 tablet by mouth once daily. CPAP fluconazole (DIFLUCAN) 150 mg tablet 1 tab by mouth every other day for 3 doses (Patient not taking: Reported on 07/09/2022) ammonium lactate (LAC-HYDRIN) 12 % lotion Apply 1 application to affected area twice daily as needed. doxycycline monohydrate (MONODOX) 50 mg capsule Take 50 mg by mouth as needed. calcium citrate/vitamin D3 (CALCIUM CITRATE + D ORAL) Take 1 tablet by mouth once daily. acetaminophen (TYLENOL) 500 mg tablet Take 1,000 mg by mouth every 8 hours as needed. cholecalciferol, vitamin D3, (VITAMIN D3) 4,000 unit cap Take 1 capsule by mouth once daily. MULTIVITAMIN ORAL Take 1 tablet by mouth once daily. (Patient not taking: Reported on 04/03/2022 ) No current facility-administered medications for this visit. Allergies As of Date: 07/09/2022 Allergen Noted Reaction BRILINTA [TICAGRELOR] 06/28/2017 Shortness of Breath CRESTOR [ROSUVASTATIN] 04/10/2020 Myalgia KEFLEX [CEPHALEXIN] 02/02/2006 Other: See Comments LIPITOR [ATORVASTATIN] 07/21/2013 Other: See Comments LOVASTATIN 07/21/2013 Other: See Comments NORCO [HYDROCODONE-ACETAMINOPHEN] 10/29/2016 Itching Fully Assessed 07/09/2022 REVIEW OF SYSTEMS Abdomen: No bloating, early satiety, indigestion, or increased flatulence. No abdominal pain, nausea, vomiting, diarrhea, or constipation. Bladder: see HPI. Allergies and current medication updated:Yes EXAM: BP 118/68 Wt 150 lb (68.0kg) GENERAL: pleasant, female in no apparent distress CHEST: Normal inspiratory effort ABDOMEN: soft, non-tender, and no masses PELVIC: external genitalia normal, normal Bartholin's glands, urethra, [place]'s glands, no vulvar lesions, physiologic discharge present, normal appearing perineal body and perianal region. Bilateral agglutination of labia minora. No hypopigmentation or plaques. Entire vulva erythematous. BIMANUAL: no adnexal masses, non-tender, and uterus surgically absent NEURO: alert and oriented x3,exam grossly non-focal ASSESSMENT/PLAN: 1. Vagina itching - ICD9: 698.1, ICD10: N89.8 (primary diagnosis) - CHINO / TRICHOMONAS AMPLIFICATION - BACTERIAL VAGINOSIS AMPLIFICATION Instructions for yeast infection with diabetes: Monistat 7 or generic - a applicator full at bedtime every other night or 1/2 applicator every night x 2 weeks 2. Dysuria - ICD9: 788.1, ICD10: R30.0 - UA POC - moderate leuks - URINE CULTURE 3. Urinary frequency - ICD9: 788.41, ICD10: R35.0 - UA POC - moderate leuks - URINE CULTURE 4. Superficial dyspareunia - ICD9: 625.0, ICD10: N94.11 - CHINO / TRICHOMONAS AMPLIFICATION - BACTERIAL VAGINOSIS AMPLIFICATION - hypoallergenic lubricant 5. Mixed incontinence - ICD9: 788.33, ICD10: N39.46 - Discussed Kegel exercises and given written instruction. - 1st degree cystocele - Minimize wearing of protection - use only urine incontinence pads. Wash vulva well with Dove unscented bar soap, rinse and dry well. Protect with Aquaphor. 6. Vaginal atrophy - ICD9: 627.3, ICD10: N95.2 - Discussed Revaree hyaluronic acid vaginal suppositories and given information 7. Cystocele, midline - ICD9: 618.01, ICD10: N81.11 - 1st degreee 8. Long-term current use of tamoxifen - ICD9: V07.51, ICD10: Z79.810 Sima Dumont APRN.ELIZABETH Medical Decision Making: Problems: Low: Acute, uncomplicated illness or injury Moderate: 1+ chronic illnesses with change Data: Unique test(s) ordered: 3+ Risk: Moderate: Drug management Medical Decision Making Level: 4 - Moderate documented in this encounter [facility] 07-08-2022 Miscellaneous Notes Info noted. documented in this encounter [facility] 07-03-2022 Miscellaneous Notes The following approved medication requests have been transmitted electronically. Requested Prescriptions Signed Prescriptions Disp Refills fluconazole (DIFLUCAN) 150 mg tablet 3 tablet 1 Si tab by mouth every other day for 3 doses Clifton Hung MD documented in this encounter [facility] 06-30-2022 History of Present illness Narrative This note was created using IMANINriter. Subjective Luz Marina Avila is a 66 year old female. HPI Patient presents with a sore in her nose for 2 days. She has history of cold sores on her nose before. She has noticed a little bit of a runny nose but the billings across the street cut hay recently and that triggers are allergies. No otc meds taken. She denies fevers. No cough. No nvd. No cp or shortness of breath. Denies hx of MRSA. Review of Systems Constitutional: Negative. HENT: Positive for rhinorrhea and sneezing. Negative for congestion, ear pain and sore throat. Nasal lesion Respiratory: Negative for cough and shortness of breath. Cardiovascular: Negative. Gastrointestinal: Negative. Genitourinary: Negative. Musculoskeletal: Negative. 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 Has been on provigil for 5-10 yrs Obstructive sleep apnea on CPAP Sibilia Psoriasis Rosacea with ocular symptoms S/P angioplasty with stent 01/09/2017 stents to mid and proximal left anterior descending Art, and angio of ostium of #2 diagonal Scalp itch Seasonal allergies Dr Pompa Vitamin D deficiency 2013 Well adult exam 01/16/2016 Last done: 09/08/2018 Current Outpatient Medications Medication Sig Dispense Refill ezetimibe (ZETIA) 10 mg tablet Take 1 tablet by mouth once daily. 90 tablet 1 hydroCHLOROthiazide (HYDRODIURIL, ESIDRIX) 25 mg tablet Take 1 tablet by mouth once daily. 90 tablet 1 metFORMIN (GLUCOPHAGE) 500 mg tablet Take 2 tablets by mouth twice daily with meals. 360 tablet 1 dulaglutide (TRULICITY) 3 mg/0.5 mL pen injector Inject 3 mg subcutaneously one time a week. 12 Each 1 ammonium lactate (LAC-HYDRIN) 12 % lotion Apply 1 application to affected area twice daily as needed. Clobetasol Propionate 0.05 % gel Apply 1 application to affected area as needed. doxycycline monohydrate (MONODOX) 50 mg capsule Take 50 mg by mouth as needed. calcium citrate/vitamin D3 (CALCIUM CITRATE + D ORAL) Take 1 tablet by mouth once daily. tamoxifen (NOLVADEX) 20 mg tablet Take 1 tablet (20 mg) by mouth once daily. 90 tablet 3 potassium chloride SR (MICRO-K) 10 mEq CR capsule Take 2 capsules by mouth twice daily. 360 capsule 3 acetaminophen (TYLENOL) 500 mg tablet Take 1,000 mg by mouth every 8 hours as needed. nitroglycerin sublingual (NITROQUICK) 0.4 mg SL tablet Dissolve 1 tablet under the tongue every 5 minutes as needed for Chest Pain. 1 Bottle of 25 0 ketoconazole (NIZORAL) 2 % shampoo Apply 1 application to affected area once daily as needed. 120 mL 1 MAGNESIUM SULFATE ORAL Take 500 mg by mouth once daily. montelukast (SINGULAIR) 10 mg tablet Take 10 mg by mouth daily at bedtime. metoprolol succinate ER (TOPROL XL) 25 mg 24 hr tablet Take 1 tablet by mouth twice daily. Per Dr. Gomez lisinopril (ZESTRIL, PRINIVIL) 5 mg tablet Take 1 tablet by mouth once daily. 30 tablet 0 LACTOBACILLUS ACIDOPHILUS (PROBIOTIC ORAL) Take 1 tablet by mouth once daily. CPAP 0 valACYclovir (VALTREX) 1 gram Take 1 tablet by mouth once daily for 5 days. 5 tablet 0 mupirocin (BACTROBAN) 2 % ointment Apply to affected area three times daily for 5 days. 22 g 0 cholecalciferol, vitamin D3, (VITAMIN D3) 4,000 unit cap Take 1 capsule by mouth once daily. 0 MULTIVITAMIN ORAL Take 1 tablet by mouth once daily. (Patient not taking: Reported on 04/03/2022 ) No current facility-administered medications for this visit. PAST SURGICAL HISTORY Procedure Laterality Date 2D ECHO (EXEP) 06/30/2017 EF=65%, trivial HI, TI and 1+ PI Unchanged from 04/2017 2D ECHO (EXEP) 05/14/2021 EF=60%, 1+ TI, trival HI, AI, PI 2D ECHO (EXEP) 09/16/2021 EF=60%, no significant valve disease BREAST LUMPECTOMY HX Left 04/08/2021 BUNIONECTOMY, LAPIDUS-TYPE 2009 left great toe BX BREAST W/DEVICE 1ST LESION STEREOTACTIC GUID Left 03/25/2021 DELIVERY ONLY CHOLECYSTECTOMY 2004 Cholecystectomy COLONOSCOPY 08/07/2015 no polyps, recheck 3-5 yrs COLONOSCOPY & POLYPECTOMY 10/12, 10/13 Dr Avila; hyperplastic polyps COLONOSCOPY FLX DX W/COLLJ SPEC WHEN PFRMD 08/09/2018 Colonoscopy ESOPHAGOGASTRODUODENOSCOPY TRANSORAL DIAGNOSTIC 08/09/2018 EGD HEART CATHETERIZATION 2004 heart cath-normal per patient HEART CATHETERIZATION 01/04/2017 EF=60%, left anterior desending septal perferator 95-99% stenosis and diagonal branch 85% stenosis, HEART CATHETERIZATION 10/2018 HEART SURGERY HX 12/2016 Cardiac stents x 2 LOW BACK DISK SURGERY 2010 microdecompression L4 L5 MASTECTOMY, PARTIAL Left 04/08/2021 PAST SURGICAL HISTORY OF 2004 parathyroidectomy x1 PAST SURGICAL HISTORY OF lipoma x2 PAST SURGICAL HISTORY OF 10/2006 left foot surgery (bone cyst in heel, removed) PAST SURGICAL HISTORY OF 2014 bilateral carpel tunnel PAST SURGICAL HISTORY OF Right 10/2016 trigger finger release x2 STENT PLACEMENT 01/06/2017 stents to mid and proximal left anterior descending Art, and angio of ostium of #2 diagonal STRESS TEST 04/20/2017 WNL TOTAL ABDOMINAL HYSTERECT W/WO RMVL TUBE OVARY 1995 LEDA for benign fibroid, ovaries intact FAMILY HISTORY Problem Relation Age of Onset other (Pancreatic cancer) Mother Coronary Artery Disease Father 25 HI @ 25. CABG Diabetes Father Diabetes Paternal Grandmother Diabetes Maternal Grandfather other (Lung cancer) Brother other (suicide) Son may of been depression Social History Tobacco Use Smoking status: Former Packs/day: 1.50 Years: 3.00 Pack years: 4.50 Types: Cigarettes Quit date: 11/08/1994 Years since quittin.6 Smokeless tobacco: Never Tobacco comments: smoked 3 years in mid 90s Vaping Use Vaping Use: Never used Substance Use Topics Alcohol use: No Drug use: No Objective BP 124/78 Pulse 90 Temp 36.3 C (97.4 F) Resp 18 Wt 68.1 kg (150 lb 3.2 oz) SpO2 99% BMI 27.03 kg/m Physical Exam Vitals reviewed. Constitutional: Appearance: Normal appearance. HENT: Nose: Comments: Patient has multiple vesicles on inside of nostril of the right side nose. Some surrounding erythema. No drainage. Skin: General: Skin is warm and dry. Neurological: Mental Status: She is alert. Assessment and Plan ASSESSMENT/PLAN: 1. Nasal lesion - ICD9: 478.19, ICD10: J34.89 - likely hsv, viral and bacterial swab sent. I did start mupirocin and valtrex. Will call on results. - WOUND CULTURE AND GRAM STAIN - HSV 1,2/VZV AMP MOLECULAR DETECT Martha Montoya PA-C documented in this encounter [facility] 06-16-2022 Miscellaneous Notes Please see pt's message. Latrice Dunn LPN documented in this encounter [facility] 02-25-2022 History of Present illness Narrative Chief Complaint Patient presents with: Established Patient: SCP HPI: Luz Marina Avila is a 66 year old female who presents here today for SCP/DCIS. Per Dr. Georges previous note: H/o [id number] diabetes mellitus, hypertension, ASCAD, and TIA who presented with an abnormal mammogram. She denies palpable discrete masses, but she notes lumpy breast. She denies nipple discharge. She denies previous breast biopsies. She denies previous breast surgeries. She notes occasional twinges of pain of her chest wall. She notes no breast or ovarian cancer in her family, mother of pancreatic cancer at age 59 and brother of lung cancer at age 58. She had a partial hysterectomy in her late 30s She is not on controls or estrogen replacement therapy Mammograms on 03/11/2021 There are a grouped pleomorphic calcifications in the left breast at 1 o'clock posterior depth. No other significant masses or calcifications are seen in the breast. IMPRESSION: SUSPICIOUS FINDING - BIOPSY SHOULD BE CONSIDERED The grouped pleomorphic calcifications in the left breast are suspicious of malignancy. A stereotactic biopsy is recommended. left stereotactic breast biopsy done on 11/15/2020. Findings of ductal carcinoma in situ Estrogen progesterone receptors positive ( >95%); HER-2/brandin negative (0) left breast lumpectomy for DCIS on 04/08/2021 at [facility] Pathology (from [facility]) reveals - ductal carcinoma in situ...,size of DCIS - 1.0 x 0.4 cm...,architectural type - cribriform..., nuclear grade 1-2..., necrosis - present central (expansive comedo necrosis)..., biopsy cavity is 0.5 cm from closest anterior margin (which is skin)..., ER >95%, AK >95% Postoperative course is unremarkable with no swelling or pain in her lumpectomy site. She is here today to discuss adjuvant therapy and chemoprevention for breast cancer. RADIATION:06/03/21 - 06/24/21 Current therapy:Tamoxifen Began after radiation I just don't feel good some mornings and I don't eat breakfast now. Symptoms began after radiation. +heartburn at night. Has appt. with PCP to discuss this week. Appetite: I don't have my appetite since before radiation. Wt. down 2# since June 2021 Energy level: Eh, it's been winter time. It's ok. Denies fevers or recent illness. Resp:denies cough or sob Cardiac:denies chest pain/occ. palpitations if I haven't taken my medicine. Followed by cardiology twice yearly GI:denies abd pain, +heartburn-takes otc pecid/tums-seeing PCP regarding this on Wednesday, denies n/v, h/o IBS moving bowels regularly :denies dysuria/hematuria Extrem:denies pain Endo:denies hot flashes Neuro:denies symptoms of neuropathy Skin:denies rashes, recent biopsy L forearm by [facility] Heme:denies bleeding The ROS is otherwise negative. Past medical history, appointments, medications, allergies reviewed. No changes. EXAM: BP 114/70 Pulse 74 Temp 36.3 C (97.4 F) (Temporal) Wt 71.2 kg (157 lb) BMI 27.81 kg/m APPEARANCE Well appearing, alert, in no acute distress, well-hydrated, well nourished. HEART RRR with normal S1 and S2, no murmurs LUNG clear to auscultation BREAST FEMALE no mass/nodule b/l, scar to L upper/outer/radiation changes LYMPH NODES No cervical lymphadenopathy, No supraclavicular lymphadenopathy and No axillary lymphadenopathy. ABDOMEN bowel sounds normoactive, soft, non-tender, non-distended, without organomegaly or palpable masses EXTREMITIES No edema NEURO Awake, alert and oriented x 3, Normal gait and No involuntary motions. SKIN Skin color, texture, turgor normal, no suspicious rashes or lesions RADIOLOGY: Mammogram 02/23/22: IMPRESSION: BENIGN FINDING There is no mammographic evidence of malignancy. A 1 year screening mammogram is recommended. ASSESSMENT/PLAN: 1. 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 - She has been taking tamoxifen at bedtime on an empty stomach. Likely causing her decreased appetite in the mornings and heartburn at night. - Reviewed mammogram with pt. - Reviewed SCP with pt. Copies given. - Discussed follow up plan. - Mammogram due in one year. - Follow up with PCP as scheduled. - Advised pt. to hold tamoxifen for the next week and send my chart message with an update on her symptoms. - Follow up in 6 months. - Pt. aware to call office with any questions/concerns. The patient indicates understanding of these issues and agrees with the plan. All documentation from previous visit of 06/30/21-Dr. Georges was copied and pasted, documentation has been reviewed and edited as necessary for today's visit. 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 APRN.CNP documented in this encounter [facility] 02-23-2022 Miscellaneous Notes February 23, 2022 PID: [id number] Luz Marina Avila [address] [place] [id number] Dear Ms. Avila, We are pleased to inform you that the results of your recent breast imaging exam on 02/23/2022 are normal. Early detection of cancer is very important. We also understand recommendations regarding breast cancer screening are controversial. Please discuss with your primary care provider which strategy is best for you and whether a mammogram is right for you. Your imaging studies and report will be kept on file at [facility] as part of your permanent medical record and are available for your continuing care. Thank you for allowing us to help in meeting your health care needs. Sincerely, Dr. Benedict Interpreting Radiologist [facility] (Normal over 40) documented in this encounter [facility] 02-23-2022 History of Present illness Narrative Radiology Service Progress Note PATIENT NAME: Luz Marina Avila DATE OF SERVICE: February 23, 2022 TIME: 10:17 AM PATIENT IDENTITY VERIFICATION COMPLETED USING TWO (2) IDENTIFIERS: Name and Date of confirmed by patient verbally. FALL SCREENING: Has the patient had 2 falls in the last year or 1 fall with injury or currently using an Ambulatory Assistive Device (Walker, Cane, Wheelchair, Crutches, etc.)? No PATIENT GENDER DATA: Female. status: : No status: NO. PATIENT RELEVANT IMPLANT DATA REVIEWED: Not Applicable RADIOLOGY DEPARTMENT: Mammography PERIPHERAL IV DATA: Not applicable SIGNED BY: RT Conner(R) February 23, 2022 10:17 AM documented in this encounter [facility] 02-10-2022 Miscellaneous Notes Last office visit: 09/26/21 F/u scheduled: 04/03/22 Kassandra Mitchell Ma documented in this encounter [facility] Diagnosis Breast neoplasm, Tis (DCIS), left- Primary [facility] Diagnosis Nasal lesion- Primary Other diseases of nasal cavity and sinuses [facility] Diagnosis Vagina itching- Primary Pruritus of genital organs Dysuria Urinary frequency Superficial dyspareunia Mixed incontinence Mixed incontinence urge and stress (male)(female) Vaginal atrophy Postmenopausal atrophic vaginitis Cystocele, midline Long-term current use of tamoxifen [facility]* Diagnosis Vaginal atrophy- Primary Postmenopausal atrophic vaginitis Vulvar dermatitis Other inflammatory disease of cervix, vagina and vulva documented [facility]* Diagnosis Breast neoplasm, Tis (DCIS), left- Primary Encounter for screening mammogram for high-risk patient Nausea Nausea alone Pain of upper abdomen Abdominal pain, other specified site documented [facility]* Diagnosis Epigastric pain- Primary Abdominal pain, epigastric Nausea Nausea alone Need for vaccination Need for prophylactic vaccination and inoculation against unspecified single disease [facility] Diagnosis Epigastric pain Abdominal pain, epigastric documented [facility] encounter [facility]* Diagnosis Abnormal CT of the abdomen- Primary Nonspecific (abnormal) findings on radiological and other examination of abdominal area, including retroperitoneum Liver lesion Other specified disorders of liver Ductal carcinoma in situ (DCIS) of left breast Abnormal CT of the chest Nonspecific (abnormal) findings on radiological and other examination of other intrathoracic organs documented in this encounter [facility] note* Diagnosis Controlled type 2 diabetes mellitus without complication, without long-term current use of insulin (HCC)- Primary Essential hypertension Unspecified essential hypertension Mixed hyperlipidemia Vitamin D deficiency Unspecified vitamin D deficiency Upper back pain Need for vaccination Need for prophylactic vaccination and inoculation against unspecified single disease 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 History of hyperparathyroidism Personal history of other endocrine, metabolic, and immunity disorders documented in this encounter [facility]* Diagnosis URI, acute- Primary Acute upper respiratory infections of unspecified site [facility] Diagnosis Other diabetic neurological complication associated with type 2 diabetes mellitus (HCC)- Primary Ingrowing toenail Ingrowing nail [facility] Diagnosis Sore throat- Primary Acute pharyngitis Acute cough documented [facility]* Diagnosis Vaginal discharge- Primary Leukorrhea, not specified as infective documented [facility]* Diagnosis Bacterial vaginosis- Primary Vaginitis and vulvovaginitis, unspecified [facility]* Diagnosis URI with cough and congestion- Primary [facility] Diagnosis Bacterial sinusitis- Primary Unspecified sinusitis (chronic) [facility]* Diagnosis RLS (restless legs syndrome) Restless legs syndrome (RLS) [facility]* Diagnosis 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 Encounter for screening mammogram for high-risk patient [facility]* Diagnosis Encounter for Medicare annual wellness exam- Primary Routine general medical examination at a health care facility Controlled type 2 diabetes mellitus without complication, without long-term current use of insulin (HCC) Diabetic eye exam ([facility]) Type II or unspecified type diabetes mellitus without mention of complication, not stated as uncontrolled Essential hypertension Unspecified essential hypertension Mixed hyperlipidemia 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) History of transient ischemic attack (TIA) Transient ischemic attack (TIA), and cerebral infarction without residual deficits Obstructive sleep apnea on CPAP Obstructive sleep apnea (adult) (pediatric) Seasonal allergies Allergic rhinitis, cause unspecified Vitamin D deficiency Unspecified vitamin D deficiency 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 RLS (restless legs syndrome) Restless legs syndrome (RLS) Pancreatic insufficiency Other specified disease of pancreas Advance directive discussed with patient Other specified counseling [facility] Diagnosis Dysuria- Primary Urine frequency Urinary frequency Vaginal discharge Leukorrhea, not specified as infective Vulvovaginal discomfort Unspecified symptom associated with female genital organs [facility] Diagnosis Abnormal CT of the abdomen Nonspecific (abnormal) findings on radiological and other examination of abdominal area, including retroperitoneum Liver lesion Other specified disorders of liver Ductal carcinoma in situ (DCIS) of left breast [facility]* Diagnosis Epigastric pain Abdominal pain, epigastric [facility]* Diagnosis Breast neoplasm, Tis (DCIS), left Encounter for screening mammogram for high-risk patient [facility] Diagnosis Ductal carcinoma in situ (DCIS) of left breast Abnormal CT of the chest Nonspecific (abnormal) findings on radiological and other examination of other intrathoracic organs [facility]* Diagnosis Essential hypertension- Primary Unspecified essential hypertension Controlled type 2 diabetes mellitus without complication, without long-term current use of insulin (HCC) Mixed hyperlipidemia 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 RLS (restless legs syndrome) Restless legs syndrome (RLS) Obstructive sleep apnea on CPAP Obstructive sleep apnea (adult) (pediatric) documented in this encounter [facility] for referral (narrative)* Diagnostic Procedure Only (Routine) - Closed Specialty Diagnoses / Procedures [facility] Diagnoses Breast neoplasm, Tis (DCIS), left Encounter for screening mammogram for malignant neoplasm of breast Procedures [facility] SCREENING SCREENING MAMMOGRAPHY BI 2-VIEW BREAST INC Alberto Mehta MD [address] [place] [address] [facility] [address] [place] [address] Referral ID Status Reason Start Date Expiration Date V isits Requested Visits Authorized [id number] Closed Auto-Generate d Referral 02/23/2022 07/30/2022 1 1 [facility] for referral (narrative)* Diagnostic Procedure Only (Routine) - Authorized Specialty Diagnoses / Procedures [facility] To Contact [facility] Diagnoses Ductal carcinoma in situ (DCIS) of left breast Abnormal CT of the chest Procedures US BREAST LTD LT US BREAST UNI REAL TIME WITH IMAGE LIMITED 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 APRN.CNP [address] [place] [address] [facility] [address] [place] [address] Referral ID Status Reason Start Date Expiration Date Visits Requested Visits Authorized [id number] Authorized Auto-Generat ed Referral 09/16/2022 10/16/2023 1 1 * Diagnostic Procedure Only (Routine) - Authorized Specialty Diagnoses / Procedures [facility] To Contact [facility] Diagnoses Ductal carcinoma in situ (DCIS) of left breast Abnormal CT of the chest Procedures [facility] LT DIAGNOSTIC MAMMOGRAPHY COMPUTER-AIDED DETCJ UNI 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 APRN.CNP [address] [place] [address] [facility] [address] [place] [address] Referral ID Status Reason Start Date Expiration Date Visits Requested Visits Authorized [id number] Authorized Auto-Generat ed Referral 09/16/2022 10/16/2023 1 1 * MRI/CT (Routine) - Pending Review Specialty Diagnoses / Procedures Referred By Jared hernández Referred To Contact CT IMAGING Diagnoses Abnormal CT of the abdomen Liver 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 Procedures CT ABD/PEL W IVCON CT ABD & PELVIS W/CONTRAST 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 APRN.ADVICE LINE RN [address] [place] [address] Ct Imaging Referral ID Status Reason Start Date Expiration Date Visits Requested Visits Authorized [id number] Pending Review Auto-Generat ed Referral 09/16/2022 10/16/2023 1 1 [facility] Diagnostic Procedure Only (Routine) - Pending Review Specialty Diagnoses / Procedures Referred By Jared hernández Referred To Contact BR IMAGING Diagnoses Ductal carcinoma in situ (DCIS) of left breast Encounter for screening mammogram for high-risk patient Procedures [facility] SCREENING W ANGELA SCREENING DIGITAL BREAST TOMOSYNTHESIS BI SCREENING MAMMOGRAPHY BI 2-VIEW BREAST INC CAD 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 APRN.ADVICE LINE RN [address] [place] [address] [facility] [address] [place] [address] Referral ID Status Reason Start Date Expiration Date Visits Requested Visits Authorized [id number] Pending Review Auto-Generat ed Referral 02/26/2023 03/27/2024 1 1 [facility] Diagnostic Procedure Only (Routine) - Closed Specialty Diagnoses / Procedures Referred By Jared hernández Referred To Contact CT IMAGING Diagnoses Abnormal CT of the abdomen Liver 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 Procedures CT ABD/PEL W IVCON CT ABD & PELVIS W/CONTRAST 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 APRN.ADVICE LINE RN [address] [place] [address] [place] [address] Referral ID Status Reason Start Date Expiration Date V isits Requested Visits Authorized [id number] Closed Auto-Generate d Referral 11/25/2022 12/25/2022 2 2 [facility] for referral (narrative)* Diagnostic Procedure Only (Routine) - Closed Specialty Diagnoses / Procedures Referred By Jared hernández Referred To Contact US IMAGING Diagnoses Epigastric pain Procedures US ABD RT UPPER QUADRANT US ABDOMINAL REAL TIME W/IMAGE LIMITED Clifton Hung MD [address] [place] [address] [place] [address] Referral ID Status Reason Start Date Expiration Date V isits Requested Visits Authorized [id number] Closed Auto-Generate d Referral 09/03/2022 10/03/2023 1 1 T [facility] for referral (narrative)* Diagnostic Procedure Only (Routine) - Closed Specialty Diagnoses / Procedures Referred By Jared hernández Referred To Contact BR IMAGING Diagnoses Breast neoplasm, Tis (DCIS), left Encounter for screening mammogram for high-risk patient Procedures [facility] SCREENING SCREENING MAMMOGRAPHY BI 2-VIEW BREAST INC CAD 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, TERRA.ADVICE LINE RN [address] [place] [address] [facility] [address] [place] [address] Referral ID Status Reason Start Date Expiration Date V isits Requested Visits Authorized [id number] Closed Auto-Generate d Referral 08/28/2022 09/27/2023 1 1 [facility] for visit Narrative* Diagnostic Procedure Only (Routine) - Closed Specialty Diagnoses / Procedures Referred By Contac t Referred To Contact BR IMAGING Diagnoses Breast neoplasm, Tis (DCIS), left Encounter for screening mammogram for malignant neoplasm of breast Procedures [facility] SCREENING SCREENING MAMMOGRAPHY BI 2-VIEW BREAST INC CAD Alberto Georges MD [address] [place] [address] [facility] [address] [place] [address] Referral ID Status Reason Start Date Expiration Date V isits Requested Visits Authorized [id number] Closed Auto-Generate d Referral 02/23/2022 07/30/2022 1 1 [facility] for visit Narrative* Diagnostic Procedure Only (Routine) - Closed Specialty Diagnoses / Procedures Referred By Contac t Referred To Contact BR IMAGING Diagnoses Breast neoplasm, Tis (DCIS), left Encounter for screening mammogram for high-risk patient Procedures [facility] SCREENING SCREENING MAMMOGRAPHY BI 2-VIEW BREAST INC CAD 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, TERRA.ADVICE LINE RN [address] [place] [address] [facility] [address] [place] [address] Referral ID Status Reason Start Date Expiration Date V isits Requested Visits Authorized [id number] Closed Auto-Generate d Referral 08/28/2022 09/27/2023 1 1 [facility] for visit Narrative* Diagnostic Procedure Only (Routine) - Closed Specialty Diagnoses / Procedures [facility] To [facility] CT IM[facility]ING Diagnoses Abnormal CT of the abdomen Liver 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 Procedures CT ABD/PEL W IVCON CT ABD & PELVIS W/CONTRAST 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, DIRECTOR EMERGENCY DEPARTMENT.ADVICE LINE RN [address] [place] [address] [place] [address] Referral ID Status Reason Start Date Expiration Date V isits Requested Visits Authorized [id number] Closed Auto-Generate d Referral 11/25/2022 12/25/2022 2 2 [facility] for visit Narrative* Diagnostic Procedure Only (Routine) - Closed Specialty Diagnoses / Procedures [facility] To [facility] Diagnoses Ductal carcinoma in situ (DCIS) of left breast Abnormal CT of the chest Procedures [facility] LT DIAGNOSTIC MAMMOGRAPHY COMPUTER-AIDED DETCJ UNI 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, TERRA.ADVICE LINE RN [address] [place] [address] [facility] [address] [place] [address] Referral ID Status Reason Start Date Expiration Date V isits Requested Visits Authorized [id number] Closed Auto-Generate d Referral 09/16/2022 10/16/2023 1 1 [facility] Advance Directives No Advanced Directives Records FoundDocuments on File Type Date Recorded 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 Advance Directive(s) 06/24/2021 1:42 PM Advance Directive(s) 08/09/2018 8:15 AM Documents on File Type Date Recorded 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 Advance Directive(s) 06/24/2021 1:42 PM Advance Directive(s) 08/09/2018 8:15 AM Documents on File Type Date Recorded 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 Advance Directive(s) 04/07/2022 12:26 PM Documents on File Type Date Recorded 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 Advance Directive(s) 04/07/2022 12:26 PM Reason for Referral Specialty Diagnoses / Procedures Referred By Contac t Referred To Contact CT IMAGING Diagnoses Breast neoplasm, Tis (DCIS), left Nausea Pain of upper abdomen Procedures CT CHEST W IVCON DIAGNOSTIC COMPUTED TOMOGRAPHY THORAX W/CONTRAST 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, TERRA.ADVICE LINE RN [address] [place] [address] Ct Imaging Referral ID Status Reason Start Date Expiration Date Visits Requested Visits Authorized [id number] Pending Review Auto-Generat ed Referral 2 09/27/2023 1 1 Specialty Diagnoses / Procedures Referred By Contac t Referred To Contact CT IMAGING Diagnoses Breast neoplasm, Tis (DCIS), left Nausea Pain of upper abdomen Procedures CT ABD/PEL W IVCON CT ABD & PELVIS W/CONTRAST 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 APRN.ADVICE LINE RN [address] [place] [address] Ct Imaging Referral ID Status Reason Start Date Expiration Date Visits Requested Visits Authorized [id number] Pending Review Auto-Generat ed Referral 2 09/27/2023 1 1 Specialty Diagnoses / Procedures Referred By Contac t Referred To Contact BR IMAGING Diagnoses Breast neoplasm, Tis (DCIS), left Encounter for screening mammogram for high-risk patient Procedures GUILLERMINA SCREENING SCREENING MAMMOGRAPHY BI 2-VIEW BREAST INC Julieth Wilhelm, TERRA.ADVICE LINE RN [address] [place] [address] Br Imaging [address] [place] [address] Referral ID Status Reason Start Date Expiration Date Visits Requested Visits Authorized [id number] Authorized Auto-Generat ed Referral 2 09/27/2023 1 1 Specialty Diagnoses / Procedures Referred By Contac t Referred To Contact Gastroenterology Diagnoses Nausea Epigastric pain Procedures CONSULT TO GASTROENTEROLOGY OFFICE/OUTPATIENT [facility] MDM 60-74 MINUTES Clifton Hung MD [address] [place] [address] Referral ID Status Reason Start Date Expiration Date Visits Requested Visits Authorized [id number] Authorized PCP Requested Referral 2 09/03/2023 1 1 Specialty Diagnoses / Procedures Referred By Contac t Referred To Contact US IMAGING Diagnoses Epigastric pain Procedures US ABD RT UPPER QUADRANT US ABDOMINAL REAL TIME W/IMAGE LIMITED Clifton Hung MD [address] [place] [address] Us Imaging Referral ID Status Reason Start Date Expiration Date Visits Requested Visits Authorized [id number] Authorized Auto-Generat ed Referral 2 10/03/2023 1 1 Health Concerns Infection Onset Date Last Indicated Resolved Time COVID-19 Rule-Out 11/02/2022 11/02/2022 11/03/2022 4:53 AM EST Infection Onset Date Last Indicated Resolved Time COVID-19 Rule-Out 11/02/2022 11/02/2022 11/03/2022 4:53 AM EST COVID-19 Confirmed 11/02/2022 11/02/2022 Infection Onset Date Last Indicated Resolved Time COVID-19 Confirmed 11/02/2022 11/02/2022 3 8:53 PM EST Summary Purpose Family History No Family History Records FoundNo Family History Records Found Additional Source Comments Source Comments (unrecognize d section and content) In the event this informatio n is protected by the Federal Confidentiality of Alcohol and Drug Abuse Patient Records regulations: The Federal rules restrict any use of the information to criminally investigate or prosecute any alcohol or drug abuse patient.[facility] [place] the event this information is protected by the Federal Confidentiality of Alcohol and Drug Abuse Patient Records regulations: The Federal rules restrict any use of the information to criminally investigate or prosecute any alcohol or drug abuse patient.[facility] [place] the event this information is protected by the Federal Confidentiality of Alcohol and Drug Abuse Patient Records regulations: The Federal rules restrict any use of the information to criminally investigate or prosecute any alcohol or drug abuse patient.[facility] [place] the event this information is protected by the Federal Confidentiality of Alcohol and Drug Abuse Patient Records regulations: The Federal rules restrict any use of the information to criminally investigate or prosecute any alcohol or drug abuse patient.[facility] [place] the event this information is protected by the Federal Confidentiality of Alcohol and Drug Abuse Patient Records regulations: The Federal rules restrict any use of the information to criminally investigate or prosecute any alcohol or drug abuse patient.[facility] [place]In the event this information is protected by the Federal Confidentiality of Alcohol and Drug Abuse Patient Records regulations: The Federal rules restrict any use of the information to criminally investigate or prosecute any alcohol or drug abuse patient.[facility] [place] the event this information is protected by the Federal Confidentiality of Alcohol and Drug Abuse Patient Records regulations: The Federal rules restrict any use of the information to criminally investigate or prosecute any alcohol or drug abuse patient.[facility] [place]In the event this information is protected by the Federal Confidentiality of Alcohol and Drug Abuse Patient Records regulations: The Federal rules restrict any use of the information to criminally investigate or prosecute any alcohol or drug abuse patient.[facility] [place] the event this information is protected by the Federal Confidentiality of Alcohol and Drug Abuse Patient Records regulations: The Federal rules restrict any use of the information to criminally investigate or prosecute any alcohol or drug abuse patient.[facility] [place] the event this information is protected by the Federal Confidentiality of Alcohol and Drug Abuse Patient Records regulations: The Federal rules restrict any use of the information to criminally investigate or prosecute any alcohol or drug abuse patient.[facility] [place] the event this information is protected by the Federal Confidentiality of Alcohol and Drug Abuse Patient Records regulations: The Federal rules restrict any use of the information to criminally investigate or prosecute any alcohol or drug abuse patient.[facility] [place] the event this information is protected by the Federal Confidentiality of Alcohol and Drug Abuse Patient Records regulations: The Federal rules restrict any use of the information to criminally investigate or prosecute any alcohol or drug abuse patient.[facility] [place]In the event this information is protected by the Federal Confidentiality of Alcohol and Drug Abuse Patient Records regulations: The Federal rules restrict any use of the information to criminally investigate or prosecute any alcohol or drug abuse patient.[facility] [place]In the event this information is protected by the Federal Confidentiality of Alcohol and Drug Abuse Patient Records regulations: The Federal rules restrict any use of the information to criminally investigate or prosecute any alcohol or drug abuse patient.[facility] [place]In the event this information is protected by the Federal Confidentiality of Alcohol and Drug Abuse Patient Records regulations: The Federal rules restrict any use of the information to criminally investigate or prosecute any alcohol or drug abuse patient.[facility] [place]In the event this information is protected by the Federal Confidentiality of Alcohol and Drug Abuse Patient Records regulations: The Federal rules restrict any use of the information to criminally investigate or prosecute any alcohol or drug abuse patient.[facility] [place]In the event this information is protected by the Federal Confidentiality of Alcohol and Drug Abuse Patient Records regulations: The Federal rules restrict any use of the information to criminally investigate or prosecute any alcohol or drug abuse patient.[facility] [place]In the event this information is protected by the Federal Confidentiality of Alcohol and Drug Abuse Patient Records regulations: The Federal rules restrict any use of the information to criminally investigate or prosecute any alcohol or drug abuse patient.[facility] [place]In the event this information is protected by the Federal Confidentiality of Alcohol and Drug Abuse Patient Records regulations: The Federal rules restrict any use of the information to criminally investigate or prosecute any alcohol or drug abuse patient.[facility] [place]In the event this information is protected by the Federal Confidentiality of Alcohol and Drug Abuse Patient Records regulations: The Federal rules restrict any use of the information to criminally investigate or prosecute any alcohol or drug abuse patient.[facility] [place]In the event this information is protected by the Federal Confidentiality of Alcohol and Drug Abuse Patient Records regulations: The Federal rules restrict any use of the information to criminally investigate or prosecute any alcohol or drug abuse patient.[facility] [place]In the event this information is protected by the Federal Confidentiality of Alcohol and Drug Abuse Patient Records regulations: The Federal rules restrict any use of the information to criminally investigate or prosecute any alcohol or drug abuse patient.[facility] [place]In the event this information is protected by the Federal Confidentiality of Alcohol and Drug Abuse Patient Records regulations: The Federal rules restrict any use of the information to criminally investigate or prosecute any alcohol or drug abuse patient.[facility] [place]In the event this information is protected by the Federal Confidentiality of Alcohol and Drug Abuse Patient Records regulations: The Federal rules restrict any use of the information to criminally investigate or prosecute any alcohol or drug abuse patient.[facility] [place]In the event this information is protected by the Federal Confidentiality of Alcohol and Drug Abuse Patient Records regulations: The Federal rules restrict any use of the information to criminally investigate or prosecute any alcohol or drug abuse patient.[facility] [place]In the event this information is protected by the Federal Confidentiality of Alcohol and Drug Abuse Patient Records regulations: The Federal rules restrict any use of the information to criminally investigate or prosecute any alcohol or drug abuse patient.[facility] [place]In the event this information is protected by the Federal Confidentiality of Alcohol and Drug Abuse Patient Records regulations: The Federal rules restrict any use of the information to criminally investigate or prosecute any alcohol or drug abuse patient.[facility] [place]In the event this information is protected by the Federal Confidentiality of Alcohol and Drug Abuse Patient Records regulations: The Federal rules restrict any use of the information to criminally investigate or prosecute any alcohol or drug abuse patient.[facility] [place]In the event this information is protected by the Federal Confidentiality of Alcohol and Drug Abuse Patient Records regulations: The Federal rules restrict any use of the information to criminally investigate or prosecute any alcohol or drug abuse patient.[facility] [place]In the event this information is protected by the Federal Confidentiality of Alcohol and Drug Abuse Patient Records regulations: The Federal rules restrict any use of the information to criminally investigate or prosecute any alcohol or drug abuse patient.[facility] [place]In the event this information is protected by the Federal Confidentiality of Alcohol and Drug Abuse Patient Records regulations: The Federal rules restrict any use of the information to criminally investigate or prosecute any alcohol or drug abuse patient.[facility] [place]In the event this information is protected by the Federal Confidentiality of Alcohol and Drug Abuse Patient Records regulations: The Federal rules restrict any use of the information to criminally investigate or prosecute any alcohol or drug abuse patient.[facility] [place]In the event this information is protected by the Federal Confidentiality of Alcohol and Drug Abuse Patient Records regulations: The Federal rules restrict any use of the information to criminally investigate or prosecute any alcohol or drug abuse patient.[facility] [place]In the event this information is protected by the Federal Confidentiality of Alcohol and Drug Abuse Patient Records regulations: The Federal rules restrict any use of the information to criminally investigate or prosecute any alcohol or drug abuse patient.[facility] [place]In the event this information is protected by the Federal Confidentiality of Alcohol and Drug Abuse Patient Records regulations: The Federal rules restrict any use of the information to criminally investigate or prosecute any alcohol or drug abuse patient.[facility] [place]In the event this information is protected by the Federal Confidentiality of Alcohol and Drug Abuse Patient Records regulations: The Federal rules restrict any use of the information to criminally investigate or prosecute any alcohol or drug abuse patient.[facility] [place]In the event this information is protected by the Federal Confidentiality of Alcohol and Drug Abuse Patient Records regulations: The Federal rules restrict any use of the information to criminally investigate or prosecute any alcohol or drug abuse patient.[facility] [place]In the event this information is protected by the Federal Confidentiality of Alcohol and Drug Abuse Patient Records regulations: The Federal rules restrict any use of the information to criminally investigate or prosecute any alcohol or drug abuse patient.[facility] [place]In the event this information is protected by the Federal Confidentiality of Alcohol and Drug Abuse Patient Records regulations: The Federal rules restrict any use of the information to criminally investigate or prosecute any alcohol or drug abuse patient.[facility] [place]In the event this information is protected by the Federal Confidentiality of Alcohol and Drug Abuse Patient Records regulations: The Federal rules restrict any use of the information to criminally investigate or prosecute any alcohol or drug abuse patient.[facility] [place]In the event this information is protected by the Federal Confidentiality of Alcohol and Drug Abuse Patient Records regulations: The Federal rules restrict any use of the information to criminally investigate or prosecute any alcohol or drug abuse patient.[facility] [place]In the event this information is protected by the Federal Confidentiality of Alcohol and Drug Abuse Patient Records regulations: The Federal rules restrict any use of the information to criminally investigate or prosecute any alcohol or drug abuse patient.[facility] [place]In the event this information is protected by the Federal Confidentiality of Alcohol and Drug Abuse Patient Records regulations: The Federal rules restrict any use of the information to criminally investigate or prosecute any alcohol or drug abuse patient.[facility] [place]In the event this information is protected by the Federal Confidentiality of Alcohol and Drug Abuse Patient Records regulations: The Federal rules restrict any use of the information to criminally investigate or prosecute any alcohol or drug abuse patient.[facility] [place]In the event this information is protected by the Federal Confidentiality of Alcohol and Drug Abuse Patient Records regulations: The Federal rules restrict any use of the information to criminally investigate or prosecute any alcohol or drug abuse patient.[facility] [place]In the event this information is protected by the Federal Confidentiality of Alcohol and Drug Abuse Patient Records regulations: The Federal rules restrict any use of the information to criminally investigate or prosecute any alcohol or drug abuse patient.[facility] [place]In the event this information is protected by the Federal Confidentiality of Alcohol and Drug Abuse Patient Records regulations: The Federal rules restrict any use of the information to criminally investigate or prosecute any alcohol or drug abuse patient.[facility] [place]In the event this information is protected by the Federal Confidentiality of Alcohol and Drug Abuse Patient Records regulations: The Federal rules restrict any use of the information to criminally investigate or prosecute any alcohol or drug abuse patient.[facility] [place]In the event this information is protected by the Federal Confidentiality of Alcohol and Drug Abuse Patient Records regulations: The Federal rules restrict any use of the information to criminally investigate or prosecute any alcohol or drug abuse patient.[facility] [place]In the event this information is protected by the Federal Confidentiality of Alcohol and Drug Abuse Patient Records regulations: The Federal rules restrict any use of the information to criminally investigate or prosecute any alcohol or drug abuse patient.[facility] [place]In the event this information is protected by the Federal Confidentiality of Alcohol and Drug Abuse Patient Records regulations: The Federal rules restrict any use of the information to criminally investigate or prosecute any alcohol or drug abuse patient.[facility] [place]In the event this information is protected by the Federal Confidentiality of Alcohol and Drug Abuse Patient Records regulations: The Federal rules restrict any use of the information to criminally investigate or prosecute any alcohol or drug abuse patient.[facility] [place]In the event this information is protected by the Federal Confidentiality of Alcohol and Drug Abuse Patient Records regulations: The Federal rules restrict any use of the information to criminally investigate or prosecute any alcohol or drug abuse patient.[facility] [place]In the event this information is protected by the Federal Confidentiality of Alcohol and Drug Abuse Patient Records regulations: The Federal rules restrict any use of the information to criminally investigate or prosecute any alcohol or drug abuse patient.[facility] [place]In the event this information is protected by the Federal Confidentiality of Alcohol and Drug Abuse Patient Records regulations: The Federal rules restrict any use of the information to criminally investigate or prosecute any alcohol or drug abuse patient.[facility] [place]In the event this information is protected by the Federal Confidentiality of Alcohol and Drug Abuse Patient Records regulations: The Federal rules restrict any use of the information to criminally investigate or prosecute any alcohol or drug abuse patient.[facility] [place]In the event this information is protected by the Federal Confidentiality of Alcohol and Drug Abuse Patient Records regulations: The Federal rules restrict any use of the information to criminally investigate or prosecute any alcohol or drug abuse patient.[facility] [place]In the event this information is protected by the Federal Confidentiality of Alcohol and Drug Abuse Patient Records regulations: The Federal rules restrict any use of the information to criminally investigate or prosecute any alcohol or drug abuse patient.[facility] [place]In the event this information is protected by the Federal Confidentiality of Alcohol and Drug Abuse Patient Records regulations: The Federal rules restrict any use of the information to criminally investigate or prosecute any alcohol or drug abuse patient.[facility] [place]In the event this information is protected by the Federal Confidentiality of Alcohol and Drug Abuse Patient Records regulations: The Federal rules restrict any use of the information to criminally investigate or prosecute any alcohol or drug abuse patient.[facility] [place]In the event this information is protected by the Federal Confidentiality of Alcohol and Drug Abuse Patient Records regulations: The Federal rules restrict any use of the information to criminally investigate or prosecute any alcohol or drug abuse patient.[facility] [place]In the event this information is protected by the Federal Confidentiality of Alcohol and Drug Abuse Patient Records regulations: The Federal rules restrict any use of the information to criminally investigate or prosecute any alcohol or drug abuse patient.[facility] [place]In the event this information is protected by the Federal Confidentiality of Alcohol and Drug Abuse Patient Records regulations: The Federal rules restrict any use of the information to criminally investigate or prosecute any alcohol or drug abuse patient.[facility] [place]In the event this information is protected by the Federal Confidentiality of Alcohol and Drug Abuse Patient Records regulations: The Federal rules restrict any use of the information to criminally investigate or prosecute any alcohol or drug abuse patient.[facility] [place]In the event this information is protected by the Federal Confidentiality of Alcohol and Drug Abuse Patient Records regulations: The Federal rules restrict any use of the information to criminally investigate or prosecute any alcohol or drug abuse patient.[facility] JacksonIn the event this information is protected by the Federal Confidentiality of Alcohol and Drug Abuse Patient Records regulations: The Federal rules restrict any use of the information to criminally investigate or prosecute any alcohol or drug abuse patient.[facility] Reason for Visit (unrecogniz ed section and content) Reason Comments Established Patient SCP Reason Comments Nasal Obstruction Nasal congestion, (R T) sided facial tenderness, possible nasal obstruction. Reason Comments Vaginal Problem Reason Onset Date Comments Refill Request 07/15/2022 Reason Comments Follow Up Reason Comments Established Patient 6 MO FOLLOW UP Reason Comments Nausea Reason Comments H. Pylori Breath Test Reason Comments Results Reason Comments Future Appointment Results Reason Comments 6 Month Exam Reason Comments Results Mammogram results Reason Comments Cough nasal congestion, dr fairchild, headache and bodyaches x 3 weeks, + covid last week Reason Comments New Patient Ingrown Toenail Reason Comments Sore Throat With cough, thick mu cus. X 2 days. Spouse has Bronchitis. Reason Comments Patient Question Reason Comments Cough Cough, congestion an d ST x 5 days Reason Onset Date Comments Refill Request 02/08/2023 Reason Comments Cough congestion Reason Comments Outside Cardiology Reason Comments Outside Neurology Reason Comments Established Patient Reason Comments Medicare Wellness Exam Reason Comments Outside Diabetic Eye Exam Reason Comments Consult Reason Comments Outside Ophthalmology Reason Comments Clinical Update Reason Comments Radiology CT Specialty Diagnoses / Procedures Referred By Jared hernández Referred To Contact CT IMAGING Diagnoses Abnormal CT of the abdomen Liver 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 Procedures CT ABD/PEL W IVCON CT ABD & PELVIS W/CONTRAST 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, TERRA.ADVICE LINE RN [address] [place] [address] [place] [address] Referral ID Status Reason Start Date Expiration Date V isits Requested Visits Authorized [id number] Closed Auto-Generate d Referral 11/25/2022 12/25/2022 2 2 Reason Comments Radiology US Specialty Diagnoses / Procedures Referred By Jared hernández Referred To Contact US IMAGING Diagnoses Epigastric pain Procedures US ABD RT UPPER QUADRANT US ABDOMINAL REAL TIME W/IMAGE LIMITED Clifton Hung MD [address] [place] [address] [place] [address] Referral ID Status Reason Start Date Expiration Date V isits Requested Visits Authorized [id number] Closed Auto-Generate d Referral 09/03/2022 10/03/2023 1 1 Specialty Diagnoses / Procedures Referred By Jared hernández Referred To Contact CT IMAGING Diagnoses Breast neoplasm, Tis (DCIS), left Nausea Pain of upper abdomen Procedures CT CHEST W IVCON DIAGNOSTIC COMPUTED TOMOGRAPHY THORAX W/CONTRAST 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, TERRA.ADVICE LINE RN [address] [place] [address] [place] [address] Referral ID Status Reason Start Date Expiration Date V isits Requested Visits Authorized [id number] Closed Auto-Generate d Referral 09/15/2022 10/15/2022 2 2 Reason Comments Outside Ophtalmology Reason Comments Outside [id number] Ordered Care Teams (unrecognized sec tion and content) Healthcare Social Worker Relationship Specialty Start Date End Date Clifton Hung MD [address] [place] [address] PCP - General Family Practice 01/16/16 Renata Barnhart MD, MD [address] [place] [address] Physician Radiation Oncology 04/25/21 Healthcare Social Worker Relationship Specialty Start Date End Date Clifton Hung MD [address] [place] [address] PCP - General Family Practice 01/16/16 Renata Barnhart MD, [address] [place] [address] Physician Radiation Oncology 04/25/21 Healthcare Social Worker Relationship Specialty Start Date End Date Clifton Hung MD [address] [place] [address] PCP - General Family Practice 01/16/16 Renata Barnhart MD, [address] [place] [address] Physician Radiation Oncology 04/25/21 Healthcare Social Worker Relationship Specialty Start Date End Date Clifton Hung MD [address] [facility] [place] [address] PCP - General Family Practice 01/16/16 Renata Barnhart MD, [address] [place] [address] Physician Radiation Oncology 04/25/21 Healthcare Social Worker Relationship Specialty Start Date End Date Clifton Hung MD [address] [facility] [place] [address] PCP - General Family Practice 01/16/16 Renata Barnhart MD, [address] [place] [address] Physician Radiation Oncology 04/25/21 Healthcare Social Worker Relationship Specialty Start Date End Date Clifton Hung MD [address] [facility] [place] [address] PCP - General Family Practice 01/16/16 Renata Barnhart MD, [address] [place] [address] Physician Radiation Oncology 04/25/21 Healthcare Social Worker Relationship Specialty Start Date End Date Clifton Hung MD [address] [facility] [place] [address] PCP - General Family Practice 01/16/16 Renata Barnhart MD, [address] [place] [address] Physician Radiation Oncology 04/25/21 Healthcare Social Worker Relationship Specialty Start Date End Date Clifton Hung MD [address] [place] [address] PCP - General Family Practice 01/16/16 Renaat Barnhart MD, [address] [facility] [place] [address] Physician Radiation Oncology 04/25/21 Healthcare Social Worker Relationship Specialty Start Date End Date Clifton Hung MD [address] [facility] [place] [address] PCP - General Family Practice 01/16/16 Renata Barnhart MD, [address] [facility] [place] [address] Physician Radiation Oncology 04/25/21 Healthcare Social Worker Relationship Specialty Start Date End Date Clifton Hung MD [address] [facility] [place] [address] PCP - General Family Medicine 01/16/16 Renata Barnhart MD, [address] [facility] [place] [address] Physician Radiation Oncology 04/25/21 Healthcare Social Worker Relationship Specialty Start Date End Date Clifton Hung MD [address] [facility] [place] [address] PCP - General Family Medicine 01/16/16 Renata Barnhart MD, [address] [facility] [place] [address] Physician Radiation Oncology 04/25/21 Healthcare Social Worker Relationship Specialty Start Date End Date Clifton Hung MD [address] [facility] [place] [address] PCP - General Family Medicine 01/16/16 Renata Barnhart MD, [address] [facility] [place] [address] Physician Radiation Oncology 04/25/21 Healthcare Social Worker Relationship Specialty Start Date End Date Clifton Hung MD [address] [facility] [place] [address] PCP - General Family Medicine 01/16/16 Renata Barnhart MD, [address] [place] [facility] [place] [address] Physician Radiation Oncology 04/25/21 Healthcare Social Worker Relationship Specialty Start Date End Date Clifton Hung MD [address] [facility] [place] [address] PCP - General Family Medicine 01/16/16 Renata Barnhart MD, [address] [facility] [place] [address] Physician Radiation Oncology 04/25/21 Healthcare Social Worker Relationship Specialty Start Date End Date Clifton Hung MD [address] [facility] [place] [address] PCP - General Family Medicine 01/16/16 Renata Barnhart MD, [address] [facility] [place] [address] Physician Radiation Oncology 04/25/21 Healthcare Social Worker Relationship Specialty Start Date End Date Clifton Hung MD [address] [facility] [place] [address] PCP - General Family Medicine 01/16/16 Renata Barnhart MD, [address] [facility] [place] [address] Physician Radiation Oncology 04/25/21 Healthcare Social Worker Relationship Specialty Start Date End Date Clifton Hung MD [address] [facility] [place] [address] PCP - General Family Medicine 01/16/16 Renata Barnhart MD, [address] [place] [address] Physician Radiation Oncology 04/25/21 Healthcare Social Worker Relationship Specialty Start Date End Date Clifton Hung MD [address] [facility] [place] [address] PCP - General Family Medicine 01/16/16 Renata Barnhart MD, [address] [place] [address] Physician Radiation Oncology 04/25/21 Healthcare Social Worker Relationship Specialty Start Date End Date Clifton Hung MD [address] [facility] [place] [address] PCP - General Family Medicine 01/16/16 Renata Barnhart MD, [address] [place] [address] Physician Radiation Oncology 04/25/21 Healthcare Social Worker Relationship Specialty Start Date End Date Clifton Hung MD [address] [facility] [place] [address] PCP - General Family Medicine 01/16/16 Renata Barnhart MD, [address] [place] [address] Physician Radiation Oncology 04/25/21 Healthcare Social Worker Relationship Specialty Start Date End Date Clifton Hung MD [address] [facility] [place] [address] PCP - General Family Medicine 01/16/16 Renata Barnhart MD, [address] [place] [address] Physician Radiation Oncology 04/25/21 Healthcare Social Worker Relationship Specialty Start Date End Date Clifton Hung MD [address] [place] [address] PCP - General Family Medicine 01/16/16 Renata Barnhart MD, [address] [place] [address] Physician Radiation Oncology 04/25/21 Healthcare Social Worker Relationship Specialty Start Date End Date Clifton Hung MD [address] [facility] [place] [address] PCP - General Family Medicine 01/16/16 Renata Barnhart MD, [address] [place] [address] Physician Radiation Oncology 04/25/21 Healthcare Social Worker Relationship Specialty Start Date End Date Clifton Hung MD [address] [facility] [place] [address] PCP - General Family Medicine 01/16/16 Renata Barnhart MD, [address] [place] [address] Physician Radiation Oncology 04/25/21 Healthcare Social Worker Relationship Specialty Start Date End Date Clifton Hung MD [address] [facility] [place] [address] PCP - General Family Medicine 01/16/16 Renata Barnhart MD, [address] [place] [address] Physician Radiation Oncology 04/25/21 Healthcare Social Worker Relationship Specialty Start Date End Date Clifton Hung MD [address] [place] [address] PCP - General Family Medicine 01/16/16 Renata Barnhart MD, [address] [place] [address] Physician Radiation Oncology 04/25/21 Healthcare Social Worker Relationship Specialty Start Date End Date Clifton Hung MD [address] [place] [address] PCP - General Family Medicine 01/16/16 Renata Barnhart MD, [address] [place] [address] Physician Radiation Oncology 04/25/21 Healthcare Social Worker Relationship Specialty Start Date End Date Clifton Hung MD [address] [facility] [place] [address] PCP - General Family Medicine 01/16/16 Renata Barnhart MD, [address] [place] [address] Physician Radiation Oncology 04/25/21 Healthcare Social Worker Relationship Specialty Start Date End Date Clifton Hung MD [address] [facility] [place] [address] PCP - General Family Medicine 01/16/16 Renata Barnhart MD, [address] [place] [address] Physician Radiation Oncology 04/25/21 Healthcare Social Worker Relationship Specialty Start Date End Date Clifton Hung MD [address] [facility] [address] PCP - General Family Medicine 01/16/16 Renata Barnhart MD, MD [address] [place] [address] Physician Radiation Oncology 04/25/21 Healthcare Social Worker Relationship Specialty Start Date End Date Clifton Hung MD [address] [place] [address] PCP - General Family Medicine 01/16/16 Renata Barnhart MD, MD [address] [place] [address] Physician Radiation Oncology 04/25/21 Healthcare Social Worker Relationship Specialty Start Date End Date Clifton Hung MD [address] [place] [address] PCP - General Family Medicine 01/16/16 Renata Barnhart MD, [address] [place] [address] Physician Radiation Oncology 04/25/21 Healthcare Social Worker Relationship Specialty Start Date End Date Clifton Hung MD [address] [place] [address] PCP - General Family Medicine 01/16/16 Renata Barnhart MD, [address] [place] [address] Physician Radiation Oncology 04/25/21 Healthcare Social Worker Relationship Specialty Start Date End Date Clifton Hung MD [address] [place] [address] PCP - General Family Medicine 01/16/16 Renata Barnhart MD, [address] [place] [address] Physician Radiation Oncology 04/25/21 Healthcare Social Worker Relationship Specialty Start Date End Date Clifton Hung MD [address] [place] [address] PCP - General Family Medicine 01/16/16 Renata Barnhart MD, MD [address] [place] [address] Physician Radiation Oncology 04/25/21 Healthcare Social Worker Relationship Specialty Start Date End Date Clifton Hung MD [address] [place] [address] PCP - General Family Medicine 01/16/16 Renata Barnhart MD, [address] [place] [address] Physician Radiation Oncology 04/25/21 Healthcare Social Worker Relationship Specialty Start Date End Date Clifton Hung MD [address] [place] [address] PCP - General Family Medicine 01/16/16 Renata Barnhart MD, [address] [place] [address] Physician Radiation Oncology 04/25/21 Healthcare Social Worker Relationship Specialty Start Date End Date Clifton Hung MD [address] [place] [address] PCP - General Family Medicine 01/16/16 Renata Barnhart MD, [address] [place] [address] Physician Radiation Oncology 04/25/21 Healthcare Social Worker Relationship Specialty Start Date End Date Clifton Hung MD [address] [place] [address] PCP - General Family Medicine 01/16/16 Renata Barnhart MD, [address] [place], [place] [address] Physician Radiation Oncology 04/25/21 Healthcare Social Worker Relationship Specialty Start Date End Date Clifton Hung MD [address] [place], [place] [address] PCP - General Family Medicine 01/16/16 Renata Barnhart MD, [address] [place] [address] Physician Radiation Oncology 04/25/21 INFORMATION SOURCE (unrecogn ized section and content) DATE CREATED AUTHOR AUTHOR'S ORGANIZ [facility] 12/11/2023 [facility] FOR RECORDS PERTAINING TO PATIENTS WHO ARE OR HAVE BEEN ENROLLED IN A CHEMICAL DEPENDENCY/SUBSTANCEABUSE PROGRAM, SOME INFORMATION MAY BE OMITTED. This clinical summary was aggregated from multiple sources. Caution should be exercised in using it in the provision of clinical care. This summary normalizes information from multiple sources, and as a consequence, information in this document may materially change the coding, format and clinical context of patient data. In addition, data may be omitted in some cases. CLINICAL DECISIONS SHOULD BE BASED ON THE PRIMARY CLINICAL RECORDS. [employer] provides no warranty or guarantee of the accuracy or completeness of information in this document.
== END 2023-12-22 15:04 | disposition home or self-care (01) ==
PROVIDERS: Emergency Provider Emergency Medicine; PCP Family Medicine; Visit Provider Emergency Medicine
DX: J10.1 Influenza due to other identified influenza virus with other respiratory manifestations (principal); I25.10 Atherosclerotic heart disease of native coronary artery without angina pectoris; E55.9 Vitamin D deficiency, unspecified; K21.9 Gastro-esophageal reflux disease without esophagitis; Z87.891 Personal history of nicotine dependence; Z79.84 Long term (current) use of oral hypoglycemic drugs; Z79.899 Other long term (current) drug therapy; Z86.16 Personal history of COVID-19; Z86.73 Personal history of transient ischemic attack (TIA), and cerebral infarction without residual deficits
CPT/HCPCS: 71045; 87631; 99282

== ENCOUNTER 2023-12-28 00:39 | Emergency (ER) | payer MEDICARE, SELFPAY ==
[2017-01-04 15:17] VITALS: BMI 30.1
[2023-12-28] VITALS (7 sets, daily range): BP systolic 171–226; BP diastolic 65–90; PULSE 63–96; RESP 13–19; TEMP 36.2–36.6; O2SAT 96–99; BMI 25.6
[2023-12-28] MEDS: DiphenhydrAMINE 50 MG/ML Syringe 25 MG IV (01:34)
[2023-12-28] MEDS: Ketorolac 15 MG/ML Vial IV (01:35)
[2023-12-28] MEDS: Metoclopramide 10 MG/2 ML Vial IV (01:35)
[2023-12-28] MEDS: hydrALAZINE 20 MG/ML Vial 10 MG IV (01:35)
--- OUTSIDE RECORDS SUMMARY | 2023-12-28 01:55 | XMS RPT_ITS | CCD ---
Author Name Unknown Address [address] [place] [address] Organization [facility] Care Team Providers Care Chief Strategy Officer Name Role Phone Moni Garcia Unavailable Unavailable Yandel FRANCHISE SALES DIRECTOR, Octaviano Viera Unavailable Moni Garcia Unavailable Unavailable [...] A Primary Care Unavailable ABHILASH, CLIFTON A Referring Unavailable ABHILASH, CLIFTON A Primary Care Unavailable SIMA DUMONT Attending Unavailable ABHILASH, CLIFTON A Primary Care Unavailable JULIETH MARIEE Referring Unavailable ABHILASH, CLIFTON A Primary Care Unavailable JULIETH MARIEE Referring Unavailable JULIETH MARIEE Attending Unavailable ABHILASH, CLIFTON A Primary Care Unavailable FRANCINE MADRID Attending Unavailable ABHILASH, CLIFTON A Primary Care Unavailable FRANCINE MADRID Attending Unavailable ABHILASH, CLIFTON A Primary Care Unavailable ABHILASH, CLIFTON A Primary Care Unavailable KNFRANCINE GOMEZ Attending Unavailable ABHILASH, CLIFTON A Primary Care Unavailable ABHILASH, CLIFTON A Primary Care Unavailable ABHILASH, CLIFTON A Primary Care Unavailable CHERISE SIFUENTES Attending Unavailable ABHILASH, CLIFTON A Primary Care Unavailable Obey MONK, [facility] Unavailable Allergies Allergy Classification Reported Allergen(s) Allergy Type Date of Onset Reaction(s) Facility (20 sources) cephalexin; Translations: [CEPHALEXIN] drug allergy 6 Other: See Comments [facility] Work Phone: (20 sources) Acetaminophen / HYDROcodone; Translations: [HYDROCODONE-ACET AMINOPHEN] Drug Allergy 6 Itching [facility] Work Phone: (20 sources) atorvastatin; Translations: [ATORVASTATIN] Drug Allergy 3 Other: See Comments [facility] Work Phone: (20 sources) Lovastatin; Translations: [LOVASTATIN] Drug Allergy 3 Other: See Comments [facility] Work Phone: (20 sources) rosuvastatin; Translations: [ROSUVASTATIN] Drug Allergy 0 Myalgia [facility] Work Phone: (20 sources) Ticagrelor; Translations: [TICAGRELOR] Drug Allergy 7 Shortness of Breath [facility] Work Phone: (1 source) Codeine Drug Allergy [facility] Repository Medications Current Medications Medication Drug Class(es) [...] disease (20 sources) Atherosclerotic heart disease of [place] coronary artery without angina pectoris; Translations: [Coronary [...] source) Long-term current use of tamoxifen; Translations: [FDC (current) use of selective estrogen receptor modulators [...] Other hereditary and degenerative nervous system conditions (18 sources) Restless legs; Translations: [Restless legs syndrome] [...] (5 sources) Long-term drug therapy; Translations: [Other skilled nursing (current) drug therapy] Onset: 01-20-2017 01-20-2017 Unclassified (1 source) Finding of body mass index; Translations: [Body mass index (BMI) 28.0-28.9, adult] Onset: 01-20-2017 01-20-2017 Past or Other Problems Problem Classification Problem Date Documented Da te Episodic/Chronic Administrative/social admission (13 sources) Advance directive discussed with patient; Translations: [Other specified counseling] Onset: 04-08-2023 Episodic Coronary atherosclerosis and other heart disease (20 sources) Presence of coronary angioplasty implant and graft; Translations: [Post percutaneous transluminal coronary angioplasty] Onset: 01-05-2017 03-31-2017 Episodic Other aftercare (6 sources) Other terminal operations supervisor (current) drug therapy; Translations: [Other skilled nursing (current) drug therapy] Onset: 01-20-2017 01-20-2017 Episodic [...] 09-26-2021 09-26-2021 Episodic Pancreatic disorders (not diabetes) (13 sources) Pancreatic insufficiency; Translations: [Other specified diseases of pancreas] Onset: 04-08-2023 Episodic Residual codes; unclassified (12 sources) Active living will ; Translations: [Other specified health status] Onset: 04-08-2023 04-08-2023 Episodic Unclassified (14 sources) Placement of stent in coronary artery ; Translations: [Presence of coronary angioplasty implant and graft] Onset: 01-14-2017 Resolved: 03-31-2017 03-31-2017 Results Test Name Value Interpretation Reference Range Facil ity Vital Signs Date Time Vital Sign Value Performing Clinician Facility 10-08-2023 08:59-0500 Body weight 64.86 kg Francine Madrid APRN.CNP Work Phone: [facility] 10-08-2023 08:59-0500 Diastolic blood pressure 85 mm[Hg] Francine Madrid APRN.CNP Work Phone: [facility] 10-08-2023 08:59-0500 Heart rate 62 /min Francine Madrid APRN.CNP Work Phone: [facility] 10-08-2023 08:59-0500 Respiratory rate 14 /min Francine Madrid APRN.CNP Work Phone: [facility] 10-08-2023 08:59-0500 Systolic blood pressure 166 mm[Hg] Francine Madrid APRN.CNP Work Phone: [facility] 07-23-2023 11:06-0400 Body weight 63.14 kg Sima Dumont SUPERVISOR MOLD CONSTRUCTION.VEHICLE BODY BUILDER Work Phone: [facility] 07-23-2023 11:06-0400 Diastolic blood pressure 78 mm[Hg] Sima Dumont SUPERVISOR MOLD CONSTRUCTION.VEHICLE BODY BUILDER Work Phone: [facility] 07-23-2023 11:06-0400 Systolic blood pressure 120 mm[Hg] Sima Dumont SUPERVISOR MOLD CONSTRUCTION.VEHICLE BODY BUILDER Work Phone: [facility] 04-08-2023 13:05-0400 Body height 157.5 cm Clifton Hung MD Work Phone: [facility] 04-08-2023 13:05-0400 Body weight 60.33 kg Clifton Hung MD Work Phone: [facility] 04-08-2023 13:05-0400 Diastolic blood pressure 84 mm[Hg] Clifton Hung MD Work Phone: [facility] 04-08-2023 13:05-0400 Heart rate 70 /min Clifton Hung MD Work Phone: [facility] 04-08-2023 13:05-0400 Respiratory rate 16 /min Clifton Hung MD Work Phone: [facility] 04-08-2023 13:05-0400 Systolic blood pressure 128 mm[Hg] Clifton Hung MD Work Phone: [facility] 02-26-2023 09:52-0400 Body height 158 cm 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 SUPERVISOR MOLD CONSTRUCTION.VEHICLE BODY BUILDER Work Phone: [facility] 02-26-2023 09:52-0400 Body temperature 97.11 [degF] 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 SUPERVISOR MOLD CONSTRUCTION.VEHICLE BODY BUILDER Work Phone: [facility] 02-26-2023 09:52-0400 Body weight 61.69 kg Purvis Mariee SUPERVISOR MOLD CONSTRUCTION.VEHICLE BODY BUILDER Work Phone: [facility] 02-26-2023 09:52-0400 Diastolic blood pressure 70 mm[Hg] 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 SUPERVISOR MOLD CONSTRUCTION.VEHICLE BODY BUILDER Work Phone: [facility] 02-26-2023 09:52-0400 Heart rate 82 /min 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 SUPERVISOR MOLD CONSTRUCTION.VEHICLE BODY BUILDER Work Phone: [facility] 02-26-2023 09:52-0400 SaO2% (BldA) [Mass fraction] 100 % 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 SUPERVISOR MOLD CONSTRUCTION.VEHICLE BODY BUILDER Work Phone: [facility] 02-26-2023 09:52-0400 Systolic blood pressure 132 mm[Hg] 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 SUPERVISOR MOLD CONSTRUCTION.VEHICLE BODY BUILDER Work Phone: [facility] 02-09-2023 07:43-0400 Body temperature 98.71 [degF] Cherise Sifuentes PA-C Work Phone: [facility] 02-09-2023 07:43-0400 Body weight 61.69 kg Cherise Sifuentes PA-C Work Phone: [facility] 02-09-2023 07:43-0400 Diastolic blood pressure 78 mm[Hg] Cherise Sifuentes PA-C Work Phone: [facility] 02-09-2023 07:43-0400 Heart rate 80 /min Cheriseny Sifuentes PA-C Work Phone: [facility] 02-09-2023 07:43-0400 Respiratory rate 18 /min Cherise Sifuentes PA-C Work Phone: [facility] 02-09-2023 07:43-0400 Systolic blood pressure 122 mm[Hg] Cherise Sifuentes PA-C Work Phone: [facility] 02-05-2023 09:19-0400 Body temperature 98.91 [degF] Lori Barriga SUPERVISOR MOLD CONSTRUCTION.VEHICLE BODY BUILDER Work Phone: [facility] 02-05-2023 09:19-0400 Body weight 63.23 kg Lori Barriga SUPERVISOR MOLD CONSTRUCTION.VEHICLE BODY BUILDER Work Phone: [facility] 02-05-2023 09:19-0400 Diastolic blood pressure 72 mm[Hg] Lori Nithya SUPERVISOR MOLD CONSTRUCTION.VEHICLE BODY BUILDER Work Phone: [facility] 02-05-2023 09:19-0400 Heart rate 92 /min Lori Barriga APRN.VEHICLE BODY BUILDER Work Phone: [facility] 02-05-2023 09:19-0400 Respiratory rate 18 /min Lori Barriga APRN.VEHICLE BODY BUILDER Work Phone: [facility] 02-05-2023 09:19-0400 SaO2% (BldA) [Mass fraction] 98 % Lori Barriga APRN.VEHICLE BODY BUILDER Work Phone: [facility] 02-05-2023 09:19-0400 Systolic blood pressure 112 mm[Hg] Lori Barriga APRN.VEHICLE BODY BUILDER Work Phone: [facility] 12-09-2022 07:04-0500 Body weight 66.68 kg Sima Dumont APRN.VEHICLE BODY BUILDER Work Phone: [facility] 12-09-2022 07:04-0500 Diastolic blood pressure 62 mm[Hg] Sima Dumont APRN.VEHICLE BODY BUILDER Work Phone: [facility] 12-09-2022 07:04-0500 Systolic blood pressure 110 mm[Hg] Sima Dumont APRN.VEHICLE BODY BUILDER Work Phone: [facility] 11-14-2022 13:11-0500 Body temperature 98.71 [degF] Shaneka Lopez APRN.VEHICLE BODY BUILDER Work Phone: [facility] 11-14-2022 13:11-0500 Body weight 68.49 kg Shaneka Lopez APRN.VEHICLE BODY BUILDER Work Phone: [facility] 11-14-2022 13:11-0500 Diastolic blood pressure 82 mm[Hg] Shaneka Lopez APRN.VEHICLE BODY BUILDER Work Phone: [facility] 11-14-2022 13:11-0500 Heart rate 77 /min Shaneka oLpez APRN.VEHICLE BODY BUILDER Work Phone: [facility] 11-14-2022 13:11-0500 Respiratory rate 16 /min Shaneka Lopez APRN.VEHICLE BODY BUILDER Work Phone: [facility] 11-14-2022 13:11-0500 SaO2% (BldA) [Mass fraction] 98 % Shaneka Lopez APRN.VEHICLE BODY BUILDER Work Phone: [facility] 11-14-2022 13:11-0500 Systolic blood pressure 138 mm[Hg] Shaneka Lopez APRN.VEHICLE BODY BUILDER Work Phone: [facility] 11-02-2022 13:16-0500 Body temperature 100.6 [degF] Shaneka Lopez APRN.VEHICLE BODY BUILDER Work Phone: [facility] 11-02-2022 13:16-0500 Body weight 67.59 kg Shaneka Lopez APRN.VEHICLE BODY BUILDER Work Phone: [facility] 11-02-2022 13:16-0500 Diastolic blood pressure 84 mm[Hg] Shaneka Lopez APRN.VEHICLE BODY BUILDER Work Phone: [facility] 11-02-2022 13:16-0500 Heart rate 92 /min Shaneka Lopez APRN.VEHICLE BODY BUILDER Work Phone: [facility] 11-02-2022 13:16-0500 Respiratory rate 18 /min Shanekadae Lopez APRN.VEHICLE BODY BUILDER Work Phone: [facility] 11-02-2022 13:16-0500 SaO2% (BldA) [Mass fraction] 96 % Shaneka Lopez APRN.VEHICLE BODY BUILDER Work Phone: [facility] 11-02-2022 13:16-0500 Systolic blood pressure 132 mm[Hg] Shaneka Lopez APRN.VEHICLE BODY BUILDER Work Phone: [facility] 10-05-2022 10:25-0500 Body temperature 97.11 [degF] Cherise MAYS-C Work Phone: [facility] 10-05-2022 10:25-0500 Body weight 67.13 kg Cherise MAYS-C Work Phone: [facility] 10-05-2022 10:25-0500 Diastolic blood pressure 80 mm[Hg] Cherise MAYS-C Work Phone: [facility] 10-05-2022 10:25-0500 Heart rate 72 /min Cherise MAYS-C Work Phone: [facility] 10-05-2022 10:25-0500 Respiratory rate 16 /min Cherise Sifuentes PA-C Work Phone: [facility] 10-05-2022 10:25-0500 Systolic blood pressure 110 mm[Hg] Cherise Sifuentes PA-C Work Phone: [facility] 09-03-2022 14:42-0400 Body weight 67.59 kg Clifton Hung MD Work Phone: [facility] 09-03-2022 14:42-0400 Diastolic blood pressure 76 mm[Hg] Clifton Hung MD Work Phone: [facility] 09-03-2022 14:42-0400 Heart rate 84 /min Clifton Hung MD Work Phone: [facility] 09-03-2022 14:42-0400 SaO2% (BldA) [Mass fraction] 96 % Clifton Hung MD Work Phone: [facility] 09-03-2022 14:42-0400 Systolic blood pressure 120 mm[Hg] Clifton Hung MD Work Phone: [facility] 08-28-2022 10:22-0400 Body weight 66.68 kg Sima Dumont APRN.VEHICLE BODY BUILDER Work Phone: [facility] 08-28-2022 10:22-0400 Diastolic blood pressure 70 mm[Hg] Sima Dumont APRN.VEHICLE BODY BUILDER Work Phone: [facility] 08-28-2022 10:22-0400 Systolic blood pressure 98 mm[Hg] Sima Dumont APRN.VEHICLE BODY BUILDER Work Phone: [facility] 08-28-2022 08:23-0400 Body height 161 cm 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 APRN.VEHICLE BODY BUILDER Work Phone: [facility] 08-28-2022 08:23-0400 Body temperature 96.8 [degF] 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 APRN.VEHICLE BODY BUILDER Work Phone: [facility] 08-28-2022 08:23-0400 Body weight 67.13 kg 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 SUPERVISOR MOLD CONSTRUCTION.VEHICLE BODY BUILDER Work Phone: [facility] 08-28-2022 08:23-0400 Diastolic blood pressure 76 mm[Hg] Julieth Russellenter SUPERVISOR MOLD CONSTRUCTION.VEHICLE BODY BUILDER Work Phone: [facility] 08-28-2022 08:23-0400 Heart rate 92 /min Julieth Russellenter SUPERVISOR MOLD CONSTRUCTION.VEHICLE BODY BUILDER Work Phone: [facility] 08-28-2022 08:23-0400 Systolic blood pressure 115 mm[Hg] Julieth Russellenter SUPERVISOR MOLD CONSTRUCTION.VEHICLE BODY BUILDER Work Phone: [facility] 07-09-2022 07:50-0400 Body weight 68.04 kg Sima Dumont SUPERVISOR MOLD CONSTRUCTION.VEHICLE BODY BUILDER Work Phone: [facility] 07-09-2022 07:50-0400 Diastolic blood pressure 68 mm[Hg] Sima Dumont SUPERVISOR MOLD CONSTRUCTION.VEHICLE BODY BUILDER Work Phone: [facility] 07-09-2022 07:50-0400 Systolic blood pressure 118 mm[Hg] Sima Hamiltonie SUPERVISOR MOLD CONSTRUCTION.VEHICLE BODY BUILDER Work Phone: [facility] 06-30-2022 12:34-0400 Body temperature 97.39 [degF] Martha Athy PA-C Work Phone: [facility] 06-30-2022 12:34-0400 Body weight 68.13 kg Martha Athy PA-C Work Phone: [facility] 06-30-2022 12:34-0400 Diastolic blood pressure 78 mm[Hg] Martha Athy PA-C Work Phone: [facility] 06-30-2022 12:34-0400 Heart rate 90 /min Martha Athy PA-C Work Phone: [facility] 06-30-2022 12:34-0400 Respiratory rate 18 /min Martha Athy PA-C Work Phone: [facility] 06-30-2022 12:34-0400 SaO2% (BldA) [Mass fraction] 99 % Martha Athy PA-C Work Phone: [facility] 06-30-2022 12:34-0400 Systolic blood pressure 124 mm[Hg] Martha MAYS-Marleny Work Phone: [facility] 02-25-2022 09:57-0400 Body temperature 97.39 [degF] Purvis Mariee SUPERVISOR MOLD CONSTRUCTION.VEHICLE BODY BUILDER Work Phone: [facility] 02-25-2022 09:57-0400 Body weight 71.22 kg 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 SUPERVISOR MOLD CONSTRUCTION.VEHICLE BODY BUILDER Work Phone: [facility] 02-25-2022 09:57-0400 Diastolic blood pressure 70 mm[Hg] 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 SUPERVISOR MOLD CONSTRUCTION.VEHICLE BODY BUILDER Work Phone: [facility] 02-25-2022 09:57-0400 Heart rate 74 /min Purvis Mariee SUPERVISOR MOLD CONSTRUCTION.VEHICLE BODY BUILDER Work Phone: [facility] 02-25-2022 09:57-0400 Systolic blood pressure 114 mm[Hg] Purvis Mariee SUPERVISOR MOLD CONSTRUCTION.VEHICLE BODY BUILDER Work Phone: [facility] 07-22-2017 16:09-0400 Heart rate 60 /min [facility] Work Phone: 07-22-2017 15:47-0400 BMI (Body Mass Index) 28.16 kg/m2 [facility] Work Phone: 07-22-2017 15:47-0400 BP Diastolic 68 mm[Hg] [facility] Work Phone: 07-22-2017 15:47-0400 BP Systolic 118 mm[Hg] [facility] Work Phone: 07-22-2017 15:47-0400 Height 160.02 cm [facility] Work Phone: 07-22-2017 15:47-0400 Pulse (Heart Rate) 60 /min [facility] Work Phone: 07-22-2017 15:47-0400 Respiratory Rate 16 /min [facility] Work Phone: 07-22-2017 15:47-0400 Weight 72.12 kg [facility] Work Phone: 04-23-2017 09:44-0400 BMI (Body Mass Index) 28.16 kg/m2 [facility] Work Phone: 04-23-2017 09:44-0400 BP Diastolic 68 mm[Hg] [facility] Work Phone: 04-23-2017 09:44-0400 BP Systolic 118 mm[Hg] [facility] Work Phone: 04-23-2017 09:44-0400 Height 160.02 cm [facility] Work Phone: 04-23-2017 09:44-0400 Pulse (Heart Rate) 72 /min [facility] Work Phone: 04-23-2017 09:44-0400 Respiratory Rate 16 /min [facility] Work Phone: 04-23-2017 09:44-0400 Weight 72.12 kg [facility] Work Phone: 01-20-2017 11:03-0400 Heart rate 72 /min Blanca Paige RN [facility] Work Phone: 01-20-2017 10:34-0400 BMI (Body Mass Index) 28.27 kg/m2 [facility] Work Phone: 01-20-2017 10:34-0400 Body weight 72.39 kg [facility] Work Phone: 01-20-2017 [...] Date Encounter Type Care Provider Facility Start: 12-24-2023 ambulatory Clifton allen MD Work Phone: [facility] Procedures Date Procedure Procedure Detail Performing Clinician Start: 07-23-2023 Urnls dip stick/tablet rgnt auto w/o microscopy Sima Dumont SUPERVISOR MOLD CONSTRUCTION.VEHICLE BODY BUILDER Work Phone: Start: 02-24-2023 End: 02-24-2023 Mammography 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 SUPERVISOR MOLD CONSTRUCTION.VEHICLE BODY BUILDER Work Phone: Start: 11-25-2022 Ct abdomen & pelvis w/contrast material 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 SUPERVISOR MOLD CONSTRUCTION.VEHICLE BODY BUILDER Work Phone: Start: 11-14-2022 STREP A MOLECULAR (POC) Sahneka Lopez SUPERVISOR MOLD CONSTRUCTION.VEHICLE BODY BUILDER Work Phone: Start: 11-02-2022 COVID WITH FLUA+B, ROUTINE Shanekaadrian graham SUPERVISOR MOLD CONSTRUCTION.VEHICLE BODY BUILDER Work Phone: Start: 10-28-2022 GUILLERMINA DIAG W ANGELA LEFT 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 SUPERVISOR MOLD CONSTRUCTION.VEHICLE BODY BUILDER Work Phone: Start: 09-09-2022 Us abdominal real time w/image limited Clifton Hung MD Work Phone: Start: 09-03-2022 INFLUENZA SEASONAL QUADRIVALENT HIGH DOSE AGE 65+ Clifton Hung MD Work Phone: Start: 07-09-2022 BACTERIAL VAGINOSIS AMPLIFICATION Sima Dumont APRN.VEHICLE BODY BUILDER Work Phone: Start: 07-09-2022 Iadna trichomonas vaginalis amplified probe tech Sima Dumont APRN.VEHICLE BODY BUILDER Work Phone: Start: 07-09-2022 Urnls dip stick/tablet rgnt auto w/o microscopy Sima Dumont APRN.VEHICLE BODY BUILDER Work Phone: Start: 02-23-2022 End: 02-23-2022 Screening [...] Ron Gomez MD Start: 07-22-2017 End: 07-22-2017 MM Ron Gomez MD Start: 04-23-2017 End: 04-23-2017 Follow Up Appt 3 months Ron Gomez MD Start: 04-23-2017 End: 04-23-2017 MM Ron Gomez MD Start: 04-23-2017 End: 04-23-2017 Dietary management education, guidance, and counseling Nancy Rodriguez RN Start: 04-23-2017 End: 04-23-2017 Follow Up Appt 3 months Ron Gomez MD Start: 04-23-2017 End: 04-23-2017 MMShameka Gomez MD Start: 03-31-2017 End: 04-21-2017 Echocardiography Ron Gomez MD Start: 03-31-2017 End: 04-21-2017 Nuclear stress test -Zandra Gomez MD Start: 03-31-2017 End: 04-21-2017 Echocardiography [...] Activity Detail Author Start: 08-09-2028 Colonoscopy COLONOSCOPY [facility] Start: 08-09-2028 COLORECTAL CANCER SCREENING COLORECTAL CANCER SCREENING [facility] Start: 08-09-2028 Screening for malignant neoplasm of colon [facility] Start: 11-23-2024 Annual PCP Team Chronic Disease Visit Annual PCP Team Chronic Disease Visit [facility] Start: 10-08-2024 Annual PCP Team Chronic Disease Visit Annual PCP Team Chronic Disease Visit [facility] Start: 09-29-2024 Hepatitis B surface antibody level LDL Cholesterol [facility] Start: 07-23-2024 BP Controlled (<130/80) BP Controlled (<130/80) [facility] Start: 05-23-2024 Glaucoma screening Dilated Retinal Exam [facility] Start: 05-23-2024 Hepatitis C antibody, confirmatory test DILATED RETINAL EXAM [facility] Start: 04-08-2024 3 comp foot exam completed DIABETIC FOOT EXAM [facility] Start: 04-08-2024 ANNUAL PCP TEAM CHRONIC DISEASE VISIT ANNUAL PCP TEAM CHRONIC DISEASE VISIT [facility] Start: 04-08-2024 BP CONTROLLED (<130/80) BP CONTROLLED (<130/80) [facility] Start: 04-08-2024 Diabetic foot examination Diabetic Foot Exam [facility] Start: 04-02-2024 Hepatitis B screening URINE ALBUMIN:CREATININE RATIO [facility] Start: 04-02-2024 Hepatitis B surface antibody level LDL CHOLESTEROL [facility] Start: 03-29-2024 Hemoglobin A1c measurement HbA1C [facility] Start: 03-29-2024 Hemoglobin A1c/Hemoglobin.total in Blood HbA1C [facility] Start: 02-25-2024 Mammography [facility] Start: 02-25-2024 Screening for malignant neoplasm of breast Mammogram Screening [facility] Start: 02-24-2024 Urine microalbumin profile [facility] Start: 02-10-2024 ANNUAL PCP TEAM CHRONIC DISEASE VISIT ANNUAL PCP TEAM CHRONIC DISEASE VISIT [facility] Start: 02-10-2024 BP CONTROLLED (<130/80) BP CONTROLLED (<130/80) [facility] Start: 02-06-2024 BP CONTROLLED (<130/80) BP CONTROLLED (<130/80) [place] [facility] Start: 12-09-2023 BP CONTROLLED (<130/80) BP CONTROLLED (<130/80) [facility] Start: 11-08-2023 Advance Directive Discussion Advance Directive Discussion [facility] Start: 11-08-2023 Depression Assessment Depression Assessment [facility] Start: 10-05-2023 ANNUAL PCP TEAM CHRONIC DISEASE VISIT ANNUAL PCP TEAM CHRONIC DISEASE VISIT [facility] Start: 10-03-2023 Hemoglobin A1c/Hemoglobin.total in Blood HBA1C [facility] Start: 09-24-2023 End: 11-24-2023 Hemoglobin A1c in Blood HGB A1C Lab Routine Controlled type 2 diabetes mellitus without complication, without long-term current use of insulin (HCC) Expected: 09/24/2023, Expires: 11/24/2023 [facility] Work Phone: Immunizations Immunization Date Immunization Notes Care Provider Javier lu 10-26-2023 influenza (HD-IIV4) vaccine, age 65+ yr, high dose, quadrivalent, PF (FLUZONE HIGH-DOSE) Clifton Hung MD Work Phone: [facility] 10-05-2022 pneumococcal polysaccharide vaccine, 23 valent Cherise Sifuentes PA-C Work Phone: [facility] 09-18-2022 COVID-19 booster vaccine, age 12+ yr, bivalent (MODERNA) Cherise Sifuentes PA-C Work Phone: [facility] 09-03-2022 influenza, high-dose , quadrivalent vaccine (FLUZONE HIGH DOSE QUADRIVALENT) Clifton Hung MD Work Phone: [facility] 09-01-2021 influenza, injectabl e, quadrivalent, contains preservative Cherise Sifuentes PA-C Work Phone: [facility] 12-20-2020 COVID-19 vaccine, fu ll dose (MODERNA) Cherise Sifuentes PA-C Work Phone: [facility] 11-19-2020 COVID-19 vaccine, fu ll dose (MODERNA) Cherise Sifuentes PA-C Work Phone: [facility] 10-12-2020 zoster vaccine recombinant Cherise Sifuentes PA-C Work Phone: [facility] 05-12-2020 zoster vaccine recombinant Cherise Sifuentes PA-C Work Phone: [facility] 04-12-2020 zoster vaccine recombinant Cherise Sifuentes PA-C Work Phone: [facility] 11-19-2019 COVID-19 vaccine, fu ll dose (MODERNA) Cherise Sifuentes PA-C Work Phone: [facility] 09-07-2017 influenza, seasonal, injectable Cherise Sifuentes PA-C Work Phone: [facility] 06-28-2017 pneumococcal polysaccharide vaccine, 23 valent Cherise Sifuentes PA-C Work Phone: [facility] 09-04-2016 influenza, seasonal, injectable Cherise Sifuentes PA-C Work Phone: [facility] 01-16-2016 pneumococcal conjuga te vaccine, 13 valent Cherise Sifuentes PA-C Work Phone: [facility] Work Phone: 09-19-2014 influenza, seasonal, injectable Cherise Sifuentes PA-C Work Phone: [facility] 02-23-2014 tetanus toxoid, redu andres diphtheria toxoid, and acellular pertussis vaccine, adsorbed Cherise Sifuentes PA-C Work Phone: [facility] 10-20-2013 influenza virus vacc ine, unspecified formulation Cheriseny Sifuentes PA-C Work Phone: [facility] 08-08-2009 pneumococcal polysaccharide vaccine, 23 valent Cherise Sifuentes PA-C Work Phone: [facility] Work Phone: Payers Date Payer Category Payer Medicare HUMANA MEDICARE HU[employer]NA MEDICARE PPO [id number] 2022-Present [phone] [address] [address] [place] [address] PPO [id number] 2022 Medicare [id number] 2009 Unknown [employer]UE CARD PPO OOS [id number] 2009-Present [phone] [address] [place] [address] PPO [id number] 2009 Unknown [employer]M BLUE CARD PPO OOS [id number] 2009-Present [phone] [address] [place] [address] PPO [id number] 1957 Unknown [id number] Social History Date Type Detail Facility Start: 07-21-2013 End: 06-30-2022 Tobacco smoking status NHIS Ex-smoker [facility] End: 11-08-1994 History of tobacco use Current smoker [facility] End: 11-08-1994 History of tobacco use Cigarette Smoker [facility] Start: 07-21-2013 End: 04-08-2023 Cigarettes smoked current (pack per day) - Reported 1.5 [facility] Start: 07-21-2013 End: 06-30-2022 Tobacco use and exposure Smokeless tobacco non-user [facility] Start: 10-22-2021 End: 09-09-2023 Alcohol intake Current non-drinker of alcohol (finding) [facility] Start: 09-25-2020 End: 09-29-2022 History SDOH Alcohol Frequency 1 [facility] Start: 09-25-2020 History SDOH Alcohol Std Drinks 98 [facility] Start: 05-20-2020 End: 09-25-2020 History SDOH Social Connections Phone 4 [facility] Start: 04-08-2020 End: 09-29-2022 History SDOH Social Connections Get Together 2 [facility] Start: 04-08-2020 End: 09-29-2022 History SDOH Social Connections Baptism 3 [facility] Start: 04-08-2020 End: 09-29-2022 History SDOH Physical Activity DPW 0 [facility] Start: 04-07-2020 Education 21 [facility] Start: 07-21-2013 End: 06-30-2022 Tobacco Comment smoked 3 years in mid 90s [facility] Start: 1955 Sex Assigned At Female [facility] Start: 02-13-2022 End: 10-05-2022 Exposure to SARS-CoV-2 (event) Not sure [facility] Start: 09-29-2022 History SDOH Financial 5 [facility] Start: 09-28-2022 End: 04-08-2023 Social connection and isolation panel [facility] Do you belong to any clubs or organizations such as synagogue groups, unions, fraternal or athletic groups, or school groups? Yes [facility] Are you now , , , , never or living with a partner? [facility] How often to you hav e a drink containing alcohol? Never [facility] How many standard dr inks containing alcohol do you have on a typical day? Patient does not drink [facility] Do you feel stress - tense, restless, nervous, or anxious, or unable to sleep at night because your mind is troubled all the time - these days [OSQ] Not at all [facility] (I/We) worried whevianca er (my/our) food would run out before (I/we) got money to buy more. Never true [facility] In the past 12 month s, was there a time when you were not able to pay the mortgage or rent on time? No [facility] Start: 01-16-2019 Gender identity Identifies as female gender (finding) [facility] Start: 01-16-2019 Sexual orientation Heterosexual (vu lo) [facility] How hard is it for y ou to pay for the very basics like food, housing, medical care, and heating Not very hard [facility] Do you feel stress - tense, restless, nervous, or anxious, or unable to sleep at night because your mind is troubled all the time - these days [OSQ] To some extent [facility] Clinical Notes 02-10-2022 to 12-10-2023 Latrice Dunn LPN - 12/10/2023 6:57 AM Francine Estrada APRN.ELIZABETH - 10/08/2023 9:15 AM Latrice Workman LPN - 09/15/2023 8:30 AM Natalie Garcia Ma - 08/31/2023 11:37 AM EDT Note Date & Type Note Facility 12-10-2023 Note HNO ID: [id number] Author: LATRICE DUNN LPN Service: ? Author Type: LICENSED NURSE Type: Progress Notes Filed: 12/10/2023 07:02 Note Text: Scan on 12/10/2023 4:35 AM by ProviderDeyvi PA-C: Miscellaneous Lab [facility] 12-10-2023 History of Present illness Narrative Scan on 12/10/2023 4:35 AM by ProviderDeyvi PA-C: Miscellaneous Lab documented in this encounter [facility] 11-23-2023 Note HNO ID: [id number] Author: FRANCINE MADRID APRN.ELIZABETH Service: ? 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 CABG Diabetes Father Diabetes Paternal Grandmother Diabetes Maternal Grandfather other (Lung cancer) Brother other (suicide) Son may of been depression Patient Allergies ALLERGIES Allergen Reactions Brilinta [Ticagrelo* Shortness of Breath Crestor [Rosuvastat* Myalgia Keflex [Cephalexin] Other: See Comments facial flushing Lipitor [Atorvastat* Other: See Comm (more content not included)... [facility] 10-22-2023 Note HNO ID: [id number] Author: Francine Madrid APRN.VEHICLE BODY BUILDER Service: ? 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 CABG Diabetes Father Diabetes Paternal Grandmother Diabetes Maternal Grandfather other (Lung cancer) Brother other (suicide) Son may of been depression Patient Allergies ALLERGIES Allergen Reactions Brilinta [Ticagrelo* Shortness of Breath Crestor [Rosuvastat* Myalgia Keflex [Cephalexin] Other: See Comments facial flushing Lipitor [Atorvastat* Other: See Comments myalgia Lovastatin Other: See Comments myalgia [place] [Hydrocodone-* Itching Current Medications C (more content not included)... [facility] 10-08-2023 Note HNO ID: [id number] Author: Francine Madrid APRN.VEHICLE BODY BUILDER Service: ? 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 CABG Diabetes Father Diabetes Paternal Grandmother Diabetes Maternal Grandfather other (Lung cancer) Brother other (suicide) Son may of been depression Patient Allergies ALLERGIES Allergen Reactions Brilinta [Ticagrelo* Shortness of Breath Crestor [Rosuvastat* Myalgia Keflex [Cephalexin] Other: See Comments facial flushing Lipitor [Atorvastat* Other: See Comments myalgia Lovastatin Other: See Comments myalgia [place] [Hydrocodone-* Itching Current Medications Curren (more content not included)... 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 CABG Diabetes Father Diabetes Paternal Grandmother Diabetes Maternal Grandfather other (Lung cancer) Brother other (suicide) Son may of been depression Patient Allergies ALLERGIES Allergen Reactions Brilinta [Ticagrelo* Shortness of Breath Crestor [Rosuvastat* Myalgia Keflex [Cephalexin] Other: See Comments facial flushing Lipitor [Atorvastat* Other: See Comments myalgia Lovastatin Other: See Comments myalgia [place] [Hydrocodone-* Itching Current Medications Current Outpatient Medications on File Prior to Visit Medication Sig Calcium Citrate-Vitamin D3 (CITRACAL+D) 315 mg-6.25 mcg (250 unit) tab Take 2 tablets by mouth once daily. agqtla-findtrxw-pdecwfl (CREON) 12,000-38,000 -60,000 unit delayed release capsule [...] - 1-dose 60+ series) Never done Covid-19 Vaccine() due on 07/09/2023 DTaP,Tdap,Td Vaccine(2 - Td [...] 327.23, ICD10: G47.33 -Wears CPAP Francine Madrid APRN.VEHICLE BODY BUILDER documented in this encounter [facility] 09-15-2023 Note HNO ID: [id number] Author: Latrice Dunn LPN Service: ? Author Type: ? Type: Progress Notes Filed: 09/15/2023 11:00 AM Note Text: Scan on 09/14/2023 5:34 PM by ProviderDeyvi PA-C: Consultation - Ophthalmology [facility] 09-15-2023 History of Present illness Narrative Scan on 09/14/2023 5:34 PM by ProviderDeyvi PA-C: Consultation - Ophthalmology documented in this encounter [facility] 09-09-2023 Note HNO ID: [id number] Author: Clifton Mckeon APRN.VEHICLE BODY BUILDER Service: ? Author Type: Nurse Practitioner Type: Progress Notes Filed: 09/09/2023 3:47 PM Note Text: Subjective HPI Nontoxic-appearing female presents urgent care chief complaint cough sore throat headache. Duration of symptoms 2 days. Associated symptoms listed above. Most prominent symptom today is sore throat. States she was in contact with individuals at her synagogue who had the flu and COVID. 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 lipase-prot (more content not included)... [facility] 08-31-2023 Note HNO ID: [id number] Author: Natalie Presley Ma Service: ? Author Type: ? Type: Progress Notes Filed: 08/31/2023 8:41 PM Note Text: Cardiology OV. Scan on 08/30/2023 2:05 PM by ProviderDeyvi PA-C: Consultation - Cardiology [facility] 08-31-2023 History of Present illness Narrative Cardiology OV. Scan on 08/30/2023 2:05 PM by ProviderDeyvi PA-C: Consultation - Cardiology documented in this encounter [facility] 08-27-2023 Note HNO ID: [id number] Author: 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 APRN.CNP Service: ? Author Type: Nurse Practitioner Type: Progress Notes Filed: 08/27/2023 10:49 AM Note Text: Chief Complaint Patient presents with: Established Patient: 6 month exam HPI: Luz Marina Avila is a 68 year old female who presents here today for follow up DCIS. Per Dr. Georges previous note: H/o tlb-inmzjlp-pwmajsgir diabetes mellitus, hypertension, ASCAD, and TIA who [...] breast lumpectomy for DCIS on 04/08/2021 at [facility] Pathology (from [facility]) reveals - ductal carcinoma in situ...,size of DCIS - 1.0 x 0.4 cm...,architectural type - cribriform..., nuclear grade 1-2..., necrosis - present central (expansive comedo necrosis)..., biopsy cavity is 0.5 cm from closest anterior margin (which is skin)..., [place] >95%, [place] >95% Postoperative course is unremarkable with no [...] rashes/lesions Heme:denies bleeding, up to date on GUN CLUB MANAGER exam-next due next 2023 The ROS is [...] as necessary for today's visit. 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 APRN.VEHICLE BODY BUILDER [facility] 08-02-2023 Note HNO ID: [id number] Author: Latrice Dunn LPN Service: ? Author Type: ? Type: Progress Notes Filed: 08/02/2023 8:50 AM Note Text: Scan on 07/30/2023 6:04 PM by ProviderDeyvi PA-C: Consultation - Ophthalmology [facility] 08-02-2023 History of Present illness Narrative Scan on 07/30/2023 6:04 PM by ProviderDeyvi PA-C: Consultation - Ophthalmology documented in this encounter [facility] 07-23-2023 Note HNO ID: [id number] Author: Sima Dumont APRN.VEHICLE BODY BUILDER Service: ? Author Type: Nurse Practitioner Type: Progress Notes Filed: 07/23/2023 12:28 PM Note Text: Cloth Cutter offered: Patient declines. 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 CABG Diabetes Father Diabetes Paternal Grandmother Diabetes Maternal Grandfather other (Lung cancer) Brother other (suicide) Son may of been depression Social History Tobacco (more content not included)... [facility] 07-23-2023 Instructions Sima Dumont APRN.ELIZABETH - 07/23/2023 [...] scratching at night. documented in this encounter [facility] 07-23-2023 History of Present illness Narrative Cloth Cutter offered: Patient declines. 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 CABG Diabetes Father Diabetes Paternal [...] Take 2 tablets by mouth once daily. tkimau-pugnlfst-jxwrbjz (CREON) 12,000-38,000 -60,000 unit delayed release capsule [...] external genitalia normal, normal Bartholin's glands, urethra, [place]'s glands, no vulvar lesions, small amount thick [...] 4 - Moderate documented in this encounter [facility] 06-15-2023 Note HNO ID: [id number] Author: Latrice Dunn LPN Service: ? Author Type: ? Type: Progress Notes Filed: 06/15/2023 8:30 PM Note Text: Scan on 06/14/2023 2:02 PM by Deyvi Yadav PA-C: Consultation - Ophthalmology [facility] 06-15-2023 History of Present illness Narrative Scan on 06/14/2023 2:02 PM by Deyvi Yadav PA-C: Consultation - Ophthalmology documented in this encounter [facility] 06-07-2023 Note HNO ID: [id number] Author: Tahmina Lopez MA Service: ? Author Type: Vocal Performer Type: Progress Notes Filed: 06/12/2023 8:09 PM Note Text: Scan on 06/07/2023 8:43 AM by Deyvi Yadav PA-C: Consultation - Ophthalmology HM updated. Tahmina Lopez MA [facility] 06-07-2023 History of Present illness Narrative Scan on 06/07/2023 8:43 AM by Provider, External, KELLY: Consultation - Ophthalmology HM updated. Tahmina Lopez MA documented in this encounter [facility] 04-09-2023 Note HNO ID: [id number] Author: Latrice Dunn LPN Service: ? Author Type: ? Type: Progress Notes Filed: 04/09/2023 11:54 AM Note Text: Scan on 04/08/2023 4:51 PM by External Provider, MICHAELC: Consultation - Ophthalmology [facility] 04-09-2023 History of Present illness Narrative Scan on 04/08/2023 4:51 PM by External Provider, KELLY: Consultation - Ophthalmology documented in this encounter [facility] 04-09-2023 Miscellaneous Notes See update from pt. Natalie Presley Ma documented in this encounter [facility] 04-08-2023 Note HNO ID: [id number] Author: Clifton Hung MD Service: ? 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 CABG Diabetes Father Diabetes Paternal [...] Marina's advanced dir (more content not included)... [facility] 04-08-2023 Instructions Clifton Hung MD - 04/08/2023 2:04 PM EDT Please get labs done on or after 09/24/2023 prior to your next visit. documented in this encounter [facility] 04-08-2023 History of Present illness Narrative Images from the original note were not included. 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 CABG Diabetes Father Diabetes Paternal [...] Yes I am willing to follow Luz MarinaSentrinsic advanced directives. 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 CABG Diabetes Father Diabetes Paternal Grandmother Diabetes Maternal Grandfather other (Lung cancer) Brother other (suicide) Son may of been depression Patient Allergies ALLERGIES Allergen Reactions Brilinta [Ticagrelo* Shortness of Breath Crestor [Rosuvastat* Myalgia Keflex [Cephalexin] Other: See Comments facial flushing Lipitor [Atorvastat* Other: See Comments myalgia Lovastatin Other: See Comments myalgia [place] [Hydrocodone-* Itching Current Medications Current Outpatient Medications [...] tablet by mouth twice daily. Per Dr. Moodispaw lisinopril (ZESTRIL, PRINIVIL) 5 mg tablet Take [...] Lymph 1.00 - 4.00 k/uL 1.43 1.36 Gila% % 9.4 8.0 Abs Gila <0.87 k/uL 0.45 0.40 Eosin% % 1.3 [...] Negative Ketones, Urine Trace, Negative Negative Specific [place], Ur 1.005 - 1.030 1.017 Hemoglobin/Blood,Ur Negative, [...] diet of 1000 mg/day for under 50, 2155-0365 mg/day for 50+ - Follow up for [...] diet and regular exercise 6. 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) - [...] which included preparing to see the patient, vpeq-mi-ezie patient care, completing clinical documentation, performing a medically appropriate examination, counseling and educating the patient/family/caregiver and ordering medications, tests, or procedures. Clifton Hung MD documented in this encounter [facility] 04-02-2023 Note HNO ID: [id number] Author: Latrice Dunn LPN Service: ? Author Type: ? Type: Progress Notes Filed: 04/02/2023 3:04 PM Note Text: Scan on 04/01/2023 3:04 PM by External Provider, KELLY: Consultation - GI [facility] 02-26-2023 Note HNO ID: [id number] Author: 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 APRN.ELIZABETH Service: ? Author Type: Nurse Practitioner Type: Progress Notes Filed: 02/26/2023 10:18 AM Note Text: Chief Complaint Patient presents with: Established Patient HPI: Luz Marina Avila is a 67 year old female who presents here today for follow up DCIS. Per Dr. Georges previous note: H/o yas-ecklwbx-tddbnorkp diabetes mellitus, hypertension, ASCAD, and TIA who [...] breast lumpectomy for DCIS on 04/08/2021 at [facility] Pathology (from [facility]) reveals - ductal carcinoma in situ...,size of DCIS - 1.0 x 0.4 cm...,architectural type - cribriform..., nuclear grade 1-2..., necrosis - present central (expansive comedo necrosis)..., biopsy cavity is 0.5 cm from closest anterior margin (which is skin)..., [place] >95%, [place] >95% Postoperative course is unremarkable with no [...] pain, n/v, h/o IBS, occ. constipation-followed by Friend/GI :denies dysuria/hematuria Extrem:denies pain Endo:denies hot flashes Neuro:denies symptoms of neuropathy Skin:denies rashes/lesions Heme:denies bleeding, up to date on GUN CLUB MANAGER exam-next due next 2023 The ROS is [...] as necessary for today's visit. 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 APRN.[facility] 02-26-2023 History of Present illness Narrative Chief Complaint Patient presents with: Established Patient HPI: Luz Marina Avila is a 67 year old female who presents here today for follow up DCIS. Per Dr. Georges previous note: H/o goc-zhhdniw-ybvcqgcdy diabetes mellitus, hypertension, ASCAD, and TIA who [...] breast lumpectomy for DCIS on 04/08/2021 at [facility] Pathology (from [facility]) reveals - ductal carcinoma in situ...,size of DCIS - 1.0 x 0.4 cm...,architectural type - cribriform..., nuclear grade 1-2..., necrosis - present central (expansive comedo necrosis)..., biopsy cavity is 0.5 cm from closest anterior margin (which is skin)..., [place] >95%, [place] >95% Postoperative course is unremarkable with no [...] rashes/lesions Heme:denies bleeding, up to date on GUN CLUB MANAGER exam-next due next 2023 The ROS is [...] 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 APRN.ELIZABETH documented in this encounter [facility] 02-24-2023 Note HNO ID: [id number] Author: RT Eugene(R) Service: ? Author Type: [employer] Type: Progress Notes Filed: 02/24/2023 9:17 AM [...] RT Eugene(R) February 24, 2023 9:16 AM [facility] 02-24-2023 History of Present illness Narrative Radiology [...] 2023 9:16 AM documented in this encounter [facility] 02-22-2023 Note HNO ID: [id number] Author: Latrice Dunn LPN Service: ? Author Type: ? Type: Progress Notes Filed: 02/22/2023 3:01 PM Note Text: Scan on 02/22/2023 12:59 PM by External Provider: Consultation - Neurology [facility] 02-22-2023 History of Present illness Narrative Scan on 02/22/2023 12:59 PM by External Provider: Consultation - Neurology documented in this encounter [facility] 02-19-2023 Note HNO ID: [id number] Author: Latrice Dunn LPN Service: ? Author Type: ? Type: Progress Notes Filed: 02/21/2023 2:20 PM Note Text: Scan on 02/18/2023 12:54 PM by External Provider: Consultation - Cardiology [facility] 02-19-2023 History of Present illness Narrative Scan on 02/18/2023 12:54 PM by External Provider: Consultation - Cardiology documented in this encounter [facility] 02-09-2023 Note HNO ID: [id number] Author: Cherise Sifuentes PA-C Service: ? Author Type: Physician Entry Level Manager Type: Progress Notes Filed: 02/09/2023 1:27 PM Note Text: Chief Complaint Patient presents with: Cough: congestion HPI Luz Marina Avila is a 67 year old female who presents here today for Above Complaints.. Patient has had URI symptoms since 01/31/23. Was seen in [facility] care on 02/05. 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 CABG Diabetes Father Diabetes Paternal Grandmother Diabetes Maternal Grandfather other (Lung cancer) Brother other (suicide) Son may of been depression Patient Allergies ALLERGIES Allergen Reactions Brilinta [Ticagrelo* Shortness of Breath Crestor [Rosuvastat* Myalgia Keflex [Cephalexin] Other: See Comments facial flushing Lipitor [Atorvastat* Other: See Comments myalgia Lovastatin Other: See Comments myalgia [place] [Hydrocodone-* Itching Current Medications Current Outpatient Medications on File Prior to Visit Medication Sig tamoxifen (NOLVADEX) 20 mg tablet Take 1 tablet (20 mg) by mouth once daily. benzonatate (TESSALON PERLE) 100 mg capsule Take 2 (more content not included)... [facility] 02-09-2023 History of Present illness Narrative Chief Complaint Patient presents with: Cough: congestion HPI Luz Marina Avila is a 67 year old female who presents here today for Above Complaints.. Patient has had URI symptoms since 01/31/23. Was seen in [facility] care on 02/05. She feels like [...] disturbance 06/2017 Arthritis tendonitis, arthritis Atherosclerosis of mentasta coronary artery with stable angina pectoris ([facility]) 01/09/[address] 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 Colon polyp 2011 Controlled type 2 diabetes mellitus without complication, without long-term current use of insulin ([facility]) 10/22/2016 De Quervain's tenosynovitis, left 07/31/2019 Diabetic eye exam ([facility]) 01/16/2016 Lat done: 12/03/2017 No retinopathy Ductal [...] 5-10 yrs Obstructive sleep apnea on CPAP Sibmaximino Psoriasis Rosacea with ocular symptoms S/P angioplasty with stent 01/09/2017 stents to mid and proximal left anterior descending Art, and angio of ostium of #2 diagonal Scalp itch Seasonal allergies Dr Pompa Vitamin D deficiency 2012 Well adult exam 01/16/2016 Last done: 09/08/2018 Previous Surgical History PAST SURGICAL HISTORY Procedure Laterality Date 2D ECHO (EXEP) 06/30/2017 EF=65%, trivial AL, TI and 1+ PI Unchanged from 04/2017 2D ECHO (EXEP) 05/14/2021 EF=60%, 1+ TI, trival AL, AI, PI 2D ECHO (EXEP) 09/16/2021 EF=60%, [...] ABDOMINAL HYSTERECT W/WO RMVL TUBE OVARY 1995 [facility] for benign fibroid, ovaries intact Family History FAMILY HISTORY Problem Relation Age of Onset other (Pancreatic cancer) Mother Coronary Artery Disease Father 25 AL @ 25. CABG Diabetes Father Diabetes Paternal Grandmother Diabetes Maternal Grandfather other (Lung cancer) Brother other (suicide) Son may of been depression Patient Allergies ALLERGIES Allergen Reactions Brilinta [Ticagrelo* Shortness of Breath Crestor [Rosuvastat* Myalgia Keflex [Cephalexin] Other: See Comments facial flushing Lipitor [Atorvastat* Other: See Comments myalgia Lovastatin Other: See Comments myalgia [place] [Hydrocodone-* Itching Current Medications Current Outpatient Medications [...] Cherise Sifuentes PA-C documented in this encounter [facility] 02-08-2023 Miscellaneous Notes Patient has been identified by name and date of : Yes Requested Prescriptions Pending Prescriptions Disp Refills tamoxifen (NOLVADEX) 20 mg tablet 90 tablet 3 Sig: Take 1 tablet (20 mg) by mouth once daily. RX INSTRUCTIONS: Patient aware RX will be sent to pharmacy. No need to notify patient. Monique Dailey LPN documented in this encounter [facility] 02-05-2023 Note HNO ID: [id number] Author: Lori Barriga APRN.VEHICLE BODY BUILDER Service: ? Author Type: Nurse Practitioner Type: Progress Notes Filed: 02/05/2023 9:58 AM Note Text: Subjective The history is provided by the patient. No manager of project management was used. HPI Luz Marina Avila is a 67 year old female who presents today for CC of cough and congestion, this started in past 5 days. Congestion is more in chest. 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 Lori Barriga APRN.[facility] 02-05-2023 History of Present illness Narrative Subjective The history is provided by the patient. No manager of project management was used. HPI Luz Marina Avila is a 67 year old female who presents today for CC of cough and congestion, this started in past 5 days. Congestion is more in chest. 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 Lori Barriga APRN.ELIZABETH documented in this encounter [facility] 02-05-2023 Instructions Lori Barriga APRN.CNP - 02/05/2023 [...] PCP for re-evaluation. documented in this encounter [facility] 12-17-2022 Miscellaneous Notes Spoke with pt. Informed [...] Please advise patient. documented in this encounter [facility] 12-11-2022 Miscellaneous Notes Noted. documented in this encounter [facility] 12-11-2022 Miscellaneous Notes Please see pt's mychart message,pt stated that Flagyl was not sent to her pharmacy. See pended order below and advise. Ernestine Ayala LPN documented in this encounter [facility] 12-09-2022 Instructions Sima Dumont APRN.ELIZABETH - 12/09/2022 [...] scratching at night. documented in this encounter [facility] 12-09-2022 History of Present illness Narrative Cloth Cutter offered: Patient declines. Luz Marina Avila is [...] external genitalia normal, normal Bartholin's glands, urethra, [place]'s glands, no vulvar lesions, cervix surgically absent, [...] which included preparing to see the patient, kvnv-xb-[id number] patient care, completing clinical documentation, obtaining and/or reviewing separately obtained history, performing a medically appropriate examination, counseling and educating the patient/family/caregiver, and ordering medications, tests, or procedures. documented in this encounter [facility] 11-25-2022 Miscellaneous Notes Patient notified. Suki Ambrocio LPN Please inform pt. that her CT is stable. No new findings. Follow up as scheduled. Thank you. 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 Colon polyp 2011 Controlled type 2 diabetes mellitus without complication, without long-term current use of insulin ([facility]) 10/22/2016 De Quervain's tenosynovitis, left 07/31/2019 Diabetic eye exam ([facility]) 01/16/2016 Lat done: 12/03/2017 No retinopathy Ductal [...] Date 2D ECHO (EXEP) 06/30/2017 EF=65%, trivial AL, TI and 1+ PI Unchanged from 04/2017 2D ECHO (EXEP) 05/14/2021 EF=60%, 1+ TI, trival AL, AI, PI 2D ECHO (EXEP) 09/16/2021 EF=60%, [...] [Rosuvastatin], Keflex [Cephalexin], Lipitor [Atorvastatin], Lovastatin, and [place] [Hydrocodone-Acetaminophen] MEDICATIONS ezetimibe (ZETIA) 10 mg tablet [...] cancer) Mother Coronary Artery Disease Father 25 AL @ 25. CABG Diabetes Father Diabetes Paternal [...] Patient agreeable to treatment plan. Shaneka Lopez APRN.VEHICLE BODY BUILDER documented in this encounter [facility] 11-11-2022 Instructions Matthew Joaquin - 11/11/2022 1:49 [...] (or decreased sensation in your feet) a clam shucker should always cut your toenails. Be Careful [...] Go to your health care provider or clam shucker to treat these conditions. 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 CABG Diabetes Father Diabetes Paternal [...] Objective: Patient presents to clinic ambulating in [facility] Constitutional: Pt is a well developed 67 [...] to L hallux. documented in this encounter [facility] 11-03-2022 Instructions Cherise Sifuentes PA-C - 11/03/2022 2:23 PM EST FACT SHEET FOR PATIENTS, PARENTS, AND CAREGIVERS EMERGENCY USE AUTHORIZATION (EUA) OF PAXLOVID FOR CORONAVIRUS DISEASE 2019 (COVID-19) You are being given this Fact Sheet because your healthcare provider believes it is necessary to provide you with PAXLOVID for the treatment of hjfa-zp-pzrfqczq coronavirus disease (COVID-19) caused by the SARS-CoV-2 [...] virus. COVID-19 illnesses have ranged from very lboq-fs-ohmjpy, including illness resulting in . While information [...] is an investigational medicine used to treat qjol-rj-zlmcnhep COVID-19 in adults and children [12 years [...] of using PAXLOVID to treat people with ovvb-am-ybofqqpl COVID-19. The FDA has authorized the emergency use of PAXLOVID for the treatment of dsis-bb-amzqszyx COVID-19 in adults and children [12 years [...] the medicines you take, including prescription and ehyn-wbo-qrwggul medicines, vitamins, and herbal supplements. Some medicines [...] (remdesivir) is FDA-approved for the treatment of iwlf-pm-lwxgyryd COVID-19 in certain adults and children. Talk with your doctor to see if Veklury is appropriate for you. Like PAXLOVID, FDA may also allow for the emergency use of other medicines to treat people with COVID-19. Go to https://www.fda.gov/emergency-prep daviednnoemi-nadegee/bnf-wplxd-xjo efkvkql-lmn-mlthqa-framework/emerg shla-nin-elviukxlgxsvm for information on the emergency use of [...] if I am or ? There is electromechanical technologist treating women or mothers with PAXLOVID. For [...] to FDA MedWatch at www.fda.gov/medwatch or call 5-987-URR8923 or you can report side effects to [employer] at the contact information provided below. Website Fax number Telephone number ipDatatel How should I store PAXLOVID? Store PAXLOVID [...] (EUA). The EUA is supported by a Inspector Final Assembly Electrical of Health and Human Service (HHS) declaration that circumstances exist to justify the emergency use of drugs and biological products during the COVID-19 pandemic. PAXLOVID for the treatment of uxht-wz-rroevrae COVID-19 in adults and children [12 years [...] telephone number provided below. Website Telephone number www.YPORB09defzRc.com (2-955-F29-CYKJ) You can also go to www.Digital Orchid.Addepar or call for more information. Pfizer Distributed by [employer] [place] [address] [id number] Revised: 23 January 2022 documented in this encounter [facility] 11-03-2022 Miscellaneous Notes Called patient to discuss: Nirmatrelvir/Ritonavir (Paxlovid) Eligibility and Patient Discussion [facility] Formulary Restriction Criteria: Adult outpatients 18 years [...] chart message today. 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 Colon polyp 2011 Controlled type 2 diabetes mellitus without complication, without long-term current use of insulin ([facility]) 10/22/2016 De Quervain's tenosynovitis, left 07/31/2019 Diabetic eye exam ([facility]) 01/16/2016 Lat done: 12/03/2017 No retinopathy Ductal [...] Date 2D ECHO (EXEP) 06/30/2017 EF=65%, trivial AL, TI and 1+ PI Unchanged from 04/2017 2D ECHO (EXEP) 05/14/2021 EF=60%, 1+ TI, trival AL, AI, PI 2D ECHO (EXEP) 09/16/2021 EF=60%, [...] ABDOMINAL HYSTERECT W/WO RMVL TUBE OVARY 1995 [facility] for benign fibroid, ovaries intact ALLERGIES Brilinta [Ticagrelor], Crestor [Rosuvastatin], Keflex [Cephalexin], Lipitor [Atorvastatin], Lovastatin, and [place] [Hydrocodone-Acetaminophen] MEDICATIONS ezetimibe (ZETIA) 10 mg tablet [...] cancer) Mother Coronary Artery Disease Father 25 AL @ 25. CABG Diabetes Father Diabetes Paternal [...] Shaneka Lopez APRN.ELIZABETH documented in this encounter [facility] 10-28-2022 Miscellaneous Notes I called and let patient know the below information and she stated understanding. I scheduled her for a follow-up on 02/26/22 @ 10:00 am, she confirmed this date and time. Jill Alvarez Pss Please inform pt. there are no concerning findings on L dx mammogram. B/l mammogram due end of February-already scheduled. Please schedule OV afterwards. Thank you. 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 CABG Diabetes Father Diabetes Paternal Grandmother Diabetes Maternal Grandfather other (Lung cancer) Brother other (suicide) Son may of been depression Patient Allergies ALLERGIES Allergen Reactions Brilinta [Ticagrelo* Shortness of Breath Crestor [Rosuvastat* Myalgia Keflex [Cephalexin] Other: See Comments facial flushing Lipitor [Atorvastat* Other: See Comments myalgia Lovastatin Other: See Comments myalgia [place] [Hydrocodone-* Itching Current Medications Current Outpatient Medications [...] PNEUMOCOCCAL IMMUNIZATION PPSV 23 7. 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) - ICD9: 414.01, 413.9, ICD10: I25.118 Cont with cardio 8. Ductal carcinoma in situ (DCIS) of left breast - ICD9: 233.0, ICD10: D05.12 Cont with oncology 9. History of hyperparathyroidism - ICD9: V12.29, ICD10: Z86.39 Follow up in 6 months for wellness labs prior.. Cherise Sifuentes PA-C documented in this encounter [facility] 09-18-2022 Miscellaneous Notes Pt called and is [...] fat in diet. documented in this encounter [facility] 09-16-2022 Miscellaneous Notes Pt notifying provider that she has seen testing results for CT. Please advise. Thank you. Cyndi Marinelli, CT documented in this encounter [facility] 09-16-2022 Miscellaneous Notes Spoke with patient and scheduled CT. Sylwia Hedrick Patient is aware of all information and verbalized understanding. Patient will contact [facility] [place] to schedule. PSS- CT abd/pelvis show a subcentimeter hypodense too small to characterize left hepatic lesion. Will plan to repeat CT in 10-12 weeks. Patient is aware of this information. Please contact patient to schedule CT. She is expecting the call. Suki Ambrocio LPN Please have patient call the breast center at [phone] to schedule dx mammogram when relaying information [...] in 10-12 weeks. Thank you. 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 APRN.VEHICLE BODY BUILDER documented in this encounter [facility] 09-09-2022 Miscellaneous Notes Pt was notified of results via phone. See TE 09/09/22. Latrice Dunn LPN documented in this encounter [facility] 09-09-2022 Miscellaneous Notes Patient notified of results [...] Cherise Sifuentes PA-C documented in this encounter [facility] 09-09-2022 History of Present illness Narrative Radiology [...] 2022 8:26 AM documented in this encounter [facility] 09-08-2022 History of Present illness Narrative Patient presented for H. Pylori Breath testing per Dr Hung. Obtained baseline sample at 9:05am. Patient then drank Pranactin-Citric solution. Waited full 15 minutes and obtained second sample at 9:22am. Patient tolerated testing well with no problems. LOT # [id number] EXP 09/07/2024 Jocelyne Sands LPN documented in this encounter [facility] 09-07-2022 Miscellaneous Notes Patient contacted and scheduled. Given instructions voiced understanding. Tahmina Lopez MA documented in this encounter [facility] 09-03-2022 History of Present illness Narrative Chief [...] melena or hematochezia. Sometimes the stool is corporate security manager in color. No longer has a gal bladder. No recent fevers. Has a CT of the abdomen and pelvis set up for 09/15/2022. Mother with Hx of pancreatic cancer. Past medical history, appointments, medications, allergies reviewed. 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 CABG Diabetes Father Diabetes Paternal Grandmother Diabetes Maternal Grandfather other (Lung cancer) Brother other (suicide) Son may of been depression Patient Allergies ALLERGIES Allergen Reactions Brilinta [Ticagrelo* Shortness of Breath Crestor [Rosuvastat* Myalgia Keflex [Cephalexin] Other: See Comments facial flushing Lipitor [Atorvastat* Other: See Comments myalgia Lovastatin Other: See Comments myalgia [place] [Hydrocodone-* Itching Current Medications Current Outpatient Medications [...] Clifton Hung MD documented in this encounter [facility] 08-28-2022 Miscellaneous Notes Patient contacted and scheduled. Tahmina Lopez MA See if she can come Wednesday evening. I have some one day holds then. Dr. Hung how soon would you like her seen. She is scheduled with Cherise 10/05/2022 for 6 month follow up. Tahmina Lopez MA documented in this encounter [facility] 08-28-2022 Instructions Sima Dumont APRN.ELIZABETH - 08/28/2022 10:40 AM EDT Silicone based lubricant such as Astroglide. Look for one that is hypoallergenic. Continue Revaree. Continue using Aquaphor and minimize use of incontinence pads to protect the skin. documented in this encounter [facility] 08-28-2022 History of Present illness Narrative Cloth Cutter offered: Patient declines. 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 CABG Diabetes Father Diabetes Paternal [...] which included preparing to see the patient, jocw-tj-sbrc patient care, completing clinical documentation, obtaining and/or reviewing separately obtained history, performing a medically appropriate examination, and counseling and educating the patient/family/caregiver. documented in this encounter [facility] 08-28-2022 History of Present illness Narrative Chief Complaint Patient presents with: Established Patient: 6 MO FOLLOW UP HPI: Luz Marina Avila is a 67 year old female who presents here today for follow up breast cancer. Per Dr. Georges previous note: H/o [id number] diabetes mellitus, hypertension, ASCAD, and TIA who [...] breast lumpectomy for DCIS on 04/08/2021 at [facility] Pathology (from [facility]) reveals - ductal carcinoma in situ...,size of DCIS - 1.0 x 0.4 cm...,architectural type - cribriform..., nuclear grade 1-2..., necrosis - present central (expansive comedo necrosis)..., biopsy cavity is 0.5 cm from closest anterior margin (which is skin)..., ER >95%, [place] >95% Postoperative course is unremarkable with no [...] 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 APRN.CNP documented in this encounter [facility] 07-15-2022 Miscellaneous Notes Patient has been identified [...] mouth once daily. Please review and advise. Gya Hill Pss documented in this encounter [facility] 07-09-2022 Instructions Sima Dumont APRN.VEHICLE BODY BUILDER - 07/09/2022 8:21 AM EDT Instructions for [...] from your environment. documented in this encounter [facility] 07-09-2022 History of Present illness Narrative Cloth Cutter offered: Patient declines. 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 CABG Diabetes Father Diabetes Paternal [...] external genitalia normal, normal Bartholin's glands, urethra, [place]'s glands, no vulvar lesions, physiologic discharge present, [...] - ICD9: V07.51, ICD10: Z79.810 Sima Dumont APRN.CNP Medical Decision Making: Problems: Low: Acute, uncomplicated illness or injury Moderate: 1+ chronic illnesses with change Data: Unique test(s) ordered: 3+ Risk: Moderate: Drug management Medical Decision Making Level: 4 - Moderate documented in this encounter [facility] 07-08-2022 Miscellaneous Notes Info noted. documented in this encounter [facility] 07-03-2022 Miscellaneous Notes The following approved medication requests have been transmitted electronically. Requested Prescriptions Signed Prescriptions Disp Refills fluconazole (DIFLUCAN) 150 mg tablet 3 tablet 1 Si tab by mouth every other day for 3 doses Clifton Hung MD documented in this encounter [facility] 06-30-2022 History of Present illness Narrative This note was created using [employer]. 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 CABG Diabetes Father Diabetes Paternal [...] Martha Montoya PA-C documented in this encounter [facility] 06-16-2022 Miscellaneous Notes Please see pt's message. Latrice Dunn LPN documented in this encounter [facility] 02-25-2022 History of Present illness Narrative Chief Complaint Patient presents with: Established Patient: SCP HPI: Luz Marina Avila is a 66 year old female who presents here today for SCP/DCIS. Per Dr. Georges previous note: H/o [id number] diabetes mellitus, hypertension, ASCAD, and TIA who [...] breast lumpectomy for DCIS on 04/08/2021 at [facility] Pathology (from [facility]) reveals - ductal carcinoma in situ...,size of DCIS - 1.0 x 0.4 cm...,architectural type - cribriform..., nuclear grade 1-2..., necrosis - present central (expansive comedo necrosis)..., biopsy cavity is 0.5 cm from closest anterior margin (which is skin)..., ER >95%, [place] >95% Postoperative course is unremarkable with no [...] 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 APRN.ELIZABETH documented in this encounter [facility] 02-23-2022 Miscellaneous Notes February 23, 2022 PID: [id number] Luz Marina Avila [address] [place] [address] Dear Ms. Avila, We are pleased to [...] report will be kept on file at [facility] as part of your permanent medical record and are available for your continuing care. Thank you for allowing us to help in meeting your health care needs. Sincerely, Dr. Benedict Interpreting Radiologist [facility] (Normal over 40) documented in this encounter [facility] 02-23-2022 History of Present illness Narrative Radiology [...] 2022 10:17 AM documented in this encounter [facility] 02-10-2022 Miscellaneous Notes Last office visit: 09/26/21 F/u scheduled: 04/03/22 Kassandra Mitchell Ma documented in this encounter [facility] Breast neoplasm, Tis (DCIS), left- Primary [facility] Diagnosis Nasal lesion- Primary Other diseases of nasal cavity and sinuses [facility] Diagnosis Vagina itching- Primary Pruritus of genital organs Dysuria Urinary frequency Superficial dyspareunia Mixed incontinence Mixed incontinence urge and stress (male)(female) Vaginal atrophy Postmenopausal atrophic vaginitis Cystocele, midline Long-term current use of tamoxifen [facility] Vaginal atrophy- Primary Postmenopausal atrophic vaginitis Vulvar dermatitis Other inflammatory disease of cervix, vagina and vulva [facility] Diagnosis Breast neoplasm, Tis (DCIS), left- Primary Encounter for screening mammogram for high-risk patient Nausea Nausea alone Pain of upper abdomen Abdominal pain, other specified site [facility] Diagnosis Epigastric pain- Primary Abdominal pain, epigastric Nausea Nausea alone Need for vaccination Need for prophylactic vaccination and inoculation against unspecified single disease [facility] Diagnosis Epigastric pain Abdominal pain, epigastric [facility] Diagnosis Abnormal CT of the abdomen- Primary Nonspecific (abnormal) findings on radiological and other examination of abdominal area, including retroperitoneum Liver lesion Other specified disorders of liver Ductal carcinoma in situ (DCIS) of left breast Abnormal CT of the chest Nonspecific (abnormal) findings on radiological and other examination of other intrathoracic organs [facility] Diagnosis Controlled type 2 diabetes mellitus without complication, without long-term current use of insulin (HCC)- Primary Essential hypertension Unspecified essential hypertension Mixed hyperlipidemia Vitamin D deficiency Unspecified vitamin D deficiency Upper back pain Need for vaccination Need for prophylactic vaccination and inoculation against unspecified single disease 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 History of hyperparathyroidism Personal history of other endocrine, metabolic, and immunity disorders [facility] Diagnosis URI, acute- Primary Acute upper respiratory infections of unspecified site [facility] Diagnosis Other diabetic neurological complication associated with type 2 diabetes mellitus (HCC)- Primary Ingrowing toenail Ingrowing nail [facility] Diagnosis Sore throat- Primary Acute pharyngitis Acute cough [facility] Diagnosis Vaginal discharge- Primary Leukorrhea, not specified as infective [facility] Diagnosis Bacterial vaginosis- Primary Vaginitis and vulvovaginitis, unspecified [facility] Diagnosis URI with cough and congestion- Primary [facility] Diagnosis Bacterial sinusitis- Primary Unspecified sinusitis (chronic) [facility] Diagnosis RLS (restless legs syndrome) Restless legs syndrome (RLS) [facility] Diagnosis 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 Encounter for screening mammogram for high-risk patient [facility] Diagnosis Encounter for Medicare annual wellness exam- Primary Routine general medical examination at a health care facility Controlled type 2 diabetes mellitus without complication, without long-term current use of insulin (HCC) Diabetic eye exam ([facility]) Type II or unspecified type diabetes mellitus without mention of complication, not stated as uncontrolled Essential hypertension Unspecified essential hypertension Mixed hyperlipidemia 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) History [...] Other specified counseling [facility] Diagnosis Dysuria- Primary Urine frequency Urinary frequency Vaginal discharge Leukorrhea, not specified as infective Vulvovaginal discomfort Unspecified symptom associated with female genital organs [facility] Diagnosis Abnormal CT of the abdomen Nonspecific (abnormal) findings on radiological and other examination of abdominal area, including retroperitoneum Liver lesion Other specified disorders of liver Ductal carcinoma in situ (DCIS) of left breast [facility] Diagnosis Epigastric pain Abdominal pain, epigastric [facility]* Diagnosis Breast neoplasm, Tis (DCIS), left Encounter for screening mammogram for high-risk patient [facility] Diagnosis Ductal carcinoma in situ (DCIS) of left breast Abnormal CT of the chest Nonspecific (abnormal) findings on radiological and other examination of other intrathoracic organs [facility] Diagnosis Essential hypertension- Primary Unspecified essential hypertension Controlled type 2 diabetes mellitus without complication, without long-term current use of insulin (HCC) Mixed hyperlipidemia 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 RLS (restless legs syndrome) Restless legs syndrome (RLS) Obstructive sleep apnea on CPAP Obstructive sleep apnea (adult) (pediatric) documented in this encounter [facility] for referral (narrative)* Diagnostic Procedure Only (Routine) - Closed Specialty Diagnoses / Procedures Referred By Jared hernández Referred To Contact BR [facility] Diagnoses Breast neoplasm, Tis (DCIS), left Encounter for screening mammogram for malignant neoplasm of breast Procedures [facility] SCREENING SCREENING MAMMOGRAPHY BI 2-VIEW BREAST INC CAD Alberto Georges MD [address] [place] [address] [facility] [address] [place] [address] Referral ID Status Reason Start Date Expiration Date V isits Requested Visits Authorized [id number] Closed Auto-Generate d Referral 02/23/2022 07/30/2022 1 1 [facility] for referral (narrative)* Diagnostic Procedure Only (Routine) - Authorized Specialty Diagnoses / Procedures Referred By Jared hernández Referred To Contact [facility] Diagnoses Ductal carcinoma in situ (DCIS) of left breast Abnormal CT of the chest Procedures US BREAST LTD LT US BREAST UNI REAL TIME WITH IMAGE LIMITED 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 APRN.CNP [address] [place] [address] [facility] [address] [place] [address] Referral ID Status Reason Start Date Expiration Date Visits Requested Visits Authorized [id number] Authorized Auto-Generat ed Referral 09/16/2022 10/16/2023 1 1 * Diagnostic Procedure Only (Routine) - Authorized Specialty Diagnoses / Procedures Referred By Jared hernández Referred To Contact [facility] IM[facility] Diagnoses Ductal carcinoma in situ (DCIS) of left breast Abnormal CT of the chest Procedures [facility] LT DIAGNOSTIC MAMMOGRAPHY COMPUTER-AIDED DETCJ UNI 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 APRN.CNP [address] [place] [address] [facility] [address] [place] [address] Referral ID Status Reason Start Date Expiration Date Visits Requested Visits Authorized [id number] Authorized Auto-Generat ed Referral 09/16/2022 10/16/2023 1 1 * MRI/CT (Routine) - Pending Review Specialty Diagnoses / Procedures Referred By Jared hernández Referred To Contact CT IMAGING Diagnoses Abnormal CT of the abdomen Liver 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 Procedures CT ABD/PEL W IVCON CT ABD & PELVIS W/CONTRAST 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 APRN.VEHICLE BODY BUILDER [address] [place] [address] Ct Imaging Referral ID Status Reason Start Date Expiration Date Visits Requested Visits Authorized [id number] Pending Review Auto-Generat ed Referral 09/16/2022 10/16/2023 1 1 [facility] for referral (narrative)* Diagnostic Procedure Only (Routine) - Pending Review Specialty Diagnoses / Procedures Referred By Jared hernández Referred To Contact [facility] IM[facility] Diagnoses Ductal carcinoma in situ (DCIS) of left breast Encounter for screening mammogram for high-risk patient Procedures [facility]LL[facility]A SCREENING W ANGELA SCREENING DIGITAL BREAST TOMOSYNTHESIS BI SCREENING MAMMOGRAPHY BI 2-VIEW BREAST INC CAD 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 APRN.VEHICLE BODY BUILDER [address] [place] [address] [facility] [address] [place] [address] Referral ID Status Reason Start Date Expiration Date Visits Requested Visits Authorized [id number] Pending Review Auto-Generat ed Referral 02/26/2023 03/27/2024 1 [facility] Diagnostic Procedure Only (Routine) - Closed Specialty Diagnoses / Procedures Referred By Contac t Referred To Contact CT IMAGING Diagnoses Abnormal CT of the abdomen Liver 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 Procedures CT ABD/PEL W IVCON CT ABD & PELVIS W/CONTRAST 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 APRN.VEHICLE BODY BUILDER [address] [place] [address] [place] [address] Referral ID Status Reason Start Date Expiration Date V isits Requested Visits Authorized [id number] Closed Auto-Generate d Referral 11/25/2022 12/25/2022 2 2 [facility] for referral (narrative)* Diagnostic Procedure Only (Routine) - Closed Specialty Diagnoses / Procedures Referred By Jared t Referred To Contact US IMAGING Diagnoses Epigastric pain Procedures US ABD RT UPPER QUADRANT US ABDOMINAL REAL TIME W/IMAGE LIMITED Clifton Hung MD [address] [place] [address] [place] [address] Referral ID Status Reason Start Date Expiration Date V isits Requested Visits Authorized [id number] Closed Auto-Generate d Referral 09/03/2022 10/03/2023 1 1 T [facility] for referral (narrative)* Diagnostic Procedure Only (Routine) - Closed Specialty Diagnoses / Procedures Referred By Jared Referred To Contact [facility] IM[facility] Diagnoses Breast neoplasm, Tis (DCIS), left Encounter for screening mammogram for high-risk patient Procedures [facility] SCREENING SCREENING MAMMOGRAPHY BI 2-VIEW BREAST INC CAD 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 APRN.VEHICLE BODY BUILDER [address] [place] [address] Br Imaging [address] [place] [address] Referral ID Status Reason Start Date Expiration Date V isits Requested Visits Authorized [id number] Closed Auto-Generate d Referral 08/28/2022 09/27/2023 1 1 [facility] for visit Narrative* Diagnostic Procedure Only (Routine) - Closed Specialty Diagnoses / Procedures Referred By Contac t Referred To Contact [facility] IM[facility] Diagnoses Breast neoplasm, Tis (DCIS), left Encounter for screening mammogram for malignant neoplasm of breast Procedures [facility] SCREENING SCREENING MAMMOGRAPHY BI 2-VIEW BREAST INC CAD Alberto Georges MD [address] [place] [address] [facility] Imaging [address] [place] [address] Referral ID Status Reason Start Date Expiration Date V isits Requested Visits Authorized [id number] Closed Auto-Generate d Referral 02/23/2022 07/30/2022 1 1 [facility] for visit Narrative* Diagnostic Procedure Only (Routine) - Closed Specialty Diagnoses / Procedures Referred By Contac t Referred To Contact BR IMAG[facility] Diagnoses Breast neoplasm, Tis (DCIS), left Encounter for screening mammogram for high-risk patient Procedures [facility] SCREENING SCREENING MAMMOGRAPHY BI 2-VIEW BREAST INC CAD 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, SUPERVISOR MOLD CONSTRUCTION.VEHICLE BODY BUILDER [address] [place] [address] [facility] [address] [place] [address] Referral ID Status Reason Start Date Expiration Date V isits Requested Visits Authorized [id number] Closed Auto-Generate d Referral 08/28/2022 09/27/2023 1 1 [facility] for visit Narrative* Diagnostic Procedure Only (Routine) - Closed Specialty Diagnoses / Procedures [facility] To [facility] CT [facility] Diagnoses Abnormal CT of the abdomen Liver 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 Procedures CT ABD/PEL W IVCON CT ABD & PELVIS W/CONTRAST 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, SUPERVISOR MOLD CONSTRUCTION.VEHICLE BODY BUILDER [address] [place] [address] [place] [address] Referral ID Status Reason Start Date Expiration Date V isits Requested Visits Authorized [id number] Closed Auto-Generate d Referral 11/25/2022 12/25/2022 2 2 [facility] for visit Narrative* Diagnostic Procedure Only (Routine) - Closed Specialty Diagnoses / Procedures [facility] Ref[facility] To Contact [facility] Diagnoses Ductal carcinoma in situ (DCIS) of left breast Abnormal CT of the chest Procedures [facility]A DIAGNOSTIC LT DIAGNOSTIC MAMMOGRAPHY COMPUTER-AIDED DETCJ UNI 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 APRN.VEHICLE BODY BUILDER [address] [place] [address] [facility] [address] [place] [address] Referral ID Status Reason Start Date Expiration Date V isits Requested Visits Authorized [id number] Closed Auto-Generate d Referral 09/16/2022 10/16/2023 1 1 [facility] Advance Directives Documents on File Type Date Recorded Patient Chief Clinical Dietitian Expl anation Advance Directive(s) 06/24/2021 1:42 PM Advance Directive(s) 08/09/2018 8:15 AM Documents on File Type Date Recorded Patient Chief Clinical Dietitian Expl anation Advance Directive(s) 06/24/2021 1:42 PM Advance Directive(s) 08/09/2018 8:15 AM Documents on File Type Date Recorded Patient Chief Clinical Dietitian Expl anation Advance Directive(s) 04/07/2022 12:26 PM Documents on File Type Date Recorded Patient Chief Clinical Dietitian Expl anation Advance Directive(s) 04/07/2022 12:26 PM Reason for Referral Specialty Diagnoses / Procedures Referred By Contac t Referred To Contact CT IMAGING Diagnoses Breast neoplasm, Tis (DCIS), left Nausea Pain of upper abdomen Procedures CT CHEST W IVCON DIAGNOSTIC COMPUTED TOMOGRAPHY THORAX W/CONTRAST 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 APRN.VEHICLE BODY BUILDER [address] [place] [address] Ct Imaging Referral ID Status Reason Start Date Expiration Date Visits Requested Visits Authorized [id number] Pending Review Auto-Generat ed Referral 2 09/27/2023 1 1 Specialty Diagnoses / Procedures Referred By Contac t Referred To Contact CT IMAGING Diagnoses Breast neoplasm, Tis (DCIS), left Nausea Pain of upper abdomen Procedures CT ABD/PEL W IVCON CT ABD & PELVIS W/CONTRAST 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 APRN.VEHICLE BODY BUILDER [address] [place] [address] Ct Imaging Referral ID Status Reason Start Date Expiration Date Visits Requested Visits Authorized [id number] Pending Review Auto-Generat ed Referral 2 09/27/2023 1 1 Specialty Diagnoses / Procedures Referred By Contac t Referred To Contact [facility] Diagnoses Breast neoplasm, Tis (DCIS), left Encounter for screening mammogram for high-risk patient Procedures [facility] SCREENING SCREENING MAMMOGRAPHY BI 2-VIEW BREAST INC Julieth Wilhelm, SUPERVISOR MOLD CONSTRUCTION.VEHICLE BODY BUILDER [address] [place] [address] Br Imaging [address] [place] [address] Referral ID Status Reason Start Date Expiration Date Visits Requested Visits Authorized [id number] Authorized Auto-Generat ed Referral 2 09/27/2023 1 1 Specialty Diagnoses / Procedures Referred By Contac t Referred To Contact Gastroenterology Diagnoses Nausea Epigastric pain Procedures CONSULT TO GASTROENTEROLOGY OFFICE/OUTPATIENT [facility] 60-74 MINUTES Clifton Hung MD [address] [place] [address] Referral ID Status Reason Start Date Expiration Date Visits Requested Visits Authorized [id number] Authorized PCP Requested Referral 2 09/03/2023 1 1 Specialty Diagnoses / Procedures Referred By Contac t Referred To Contact US IMAGING Diagnoses Epigastric pain Procedures US ABD RT UPPER QUADRANT US ABDOMINAL REAL TIME W/IMAGE LIMITED Clifton Hung MD [address] [place] [address] Us Imaging Referral ID Status Reason Start Date Expiration Date Visits Requested Visits Authorized [id number] Authorized Auto-Generat ed Referral 2 10/03/2023 1 [...] or prosecute any alcohol or drug abuse patient.[facility] the event this information is protected by the Federal Confidentiality of Alcohol and Drug Abuse Patient Records regulations: The Federal rules restrict any use of the information to criminally investigate or prosecute any alcohol or drug abuse patient.[facility] the event this information is protected by the Federal Confidentiality of Alcohol and Drug Abuse Patient Records regulations: The Federal rules restrict any use of the information to criminally investigate or prosecute any alcohol or drug abuse patient.[facility] the event this information is protected by the Federal Confidentiality of Alcohol and Drug Abuse Patient Records regulations: The Federal rules restrict any use of the information to criminally investigate or prosecute any alcohol or drug abuse patient.[facility] the event this information is protected by the Federal Confidentiality of Alcohol and Drug Abuse Patient Records regulations: The Federal rules restrict any use of the information to criminally investigate or prosecute any alcohol or drug abuse patient.[facility] HospitalIn the event this information is protected by the Federal Confidentiality of Alcohol and Drug Abuse Patient Records regulations: The Federal rules restrict any use of the information to criminally investigate or prosecute any alcohol or drug abuse patient.[facility] HospitalIn the event this information is protected by the Federal Confidentiality of Alcohol and Drug Abuse Patient Records regulations: The Federal rules restrict any use of the information to criminally investigate or prosecute any alcohol or drug abuse patient.[facility] HospitalIn the event this information is protected by the Federal Confidentiality of Alcohol and Drug Abuse Patient Records regulations: The Federal rules restrict any use of the information to criminally investigate or prosecute any alcohol or drug abuse patient.[facility] HospitalIn the event this information is protected by the Federal Confidentiality of Alcohol and Drug Abuse Patient Records regulations: The Federal rules restrict any use of the information to criminally investigate or prosecute any alcohol or drug abuse patient.[facility] HospitalIn the event this information is protected by the Federal Confidentiality of Alcohol and Drug Abuse Patient Records regulations: The Federal rules restrict any use of the information to criminally investigate or prosecute any alcohol or drug abuse patient.[facility] HospitalIn the event this information is protected by the Federal Confidentiality of Alcohol and Drug Abuse Patient Records regulations: The Federal rules restrict any use of the information to criminally investigate or prosecute any alcohol or drug abuse patient.[facility] HospitalIn the event this information is protected by the Federal Confidentiality of Alcohol and Drug Abuse Patient Records regulations: The Federal rules restrict any use of the information to criminally investigate or prosecute any alcohol or drug abuse patient.[facility] HospitalIn the event this information is protected by the Federal Confidentiality of Alcohol and Drug Abuse Patient Records regulations: The Federal rules restrict any use of the information to criminally investigate or prosecute any alcohol or drug abuse patient.[facility] HospitalIn the event this information is protected by the Federal Confidentiality of Alcohol and Drug Abuse Patient Records regulations: The Federal rules restrict any use of the information to criminally investigate or prosecute any alcohol or drug abuse patient.[facility] HospitalIn the event this information is protected by the Federal Confidentiality of Alcohol and Drug Abuse Patient Records regulations: The Federal rules restrict any use of the information to criminally investigate or prosecute any alcohol or drug abuse patient.[facility] HospitalIn the event this information is protected by the Federal Confidentiality of Alcohol and Drug Abuse Patient Records regulations: The Federal rules restrict any use of the information to criminally investigate or prosecute any alcohol or drug abuse patient.[facility] HospitalIn the event this information is protected by the Federal Confidentiality of Alcohol and Drug Abuse Patient Records regulations: The Federal rules restrict any use of the information to criminally investigate or prosecute any alcohol or drug abuse patient.[facility] HospitalIn the event this information is protected by the Federal Confidentiality of Alcohol and Drug Abuse Patient Records regulations: The Federal rules restrict any use of the information to criminally investigate or prosecute any alcohol or drug abuse patient.[facility] HospitalIn the event this information is protected by the Federal Confidentiality of Alcohol and Drug Abuse Patient Records regulations: The Federal rules restrict any use of the information to criminally investigate or prosecute any alcohol or drug abuse patient.[facility] HospitalIn the event this information is protected by the Federal Confidentiality of Alcohol and Drug Abuse Patient Records regulations: The Federal rules restrict any use of the information to criminally investigate or prosecute any alcohol or drug abuse patient.[facility] HospitalIn the event this information is protected by the Federal Confidentiality of Alcohol and Drug Abuse Patient Records regulations: The Federal rules restrict any use of the information to criminally investigate or prosecute any alcohol or drug abuse patient.[facility] HospitalIn the event this information is protected by the Federal Confidentiality of Alcohol and Drug Abuse Patient Records regulations: The Federal rules restrict any use of the information to criminally investigate or prosecute any alcohol or drug abuse patient.[facility] HospitalIn the event this information is protected by the Federal Confidentiality of Alcohol and Drug Abuse Patient Records regulations: The Federal rules restrict any use of the information to criminally investigate or prosecute any alcohol or drug abuse patient.[facility] HospitalIn the event this information is protected by the Federal Confidentiality of Alcohol and Drug Abuse Patient Records regulations: The Federal rules restrict any use of the information to criminally investigate or prosecute any alcohol or drug abuse patient.[facility] HospitalIn the event this information is protected by the Federal Confidentiality of Alcohol and Drug Abuse Patient Records regulations: The Federal rules restrict any use of the information to criminally investigate or prosecute any alcohol or drug abuse patient.[facility] HospitalIn the event this information is protected by the Federal Confidentiality of Alcohol and Drug Abuse Patient Records regulations: The Federal rules restrict any use of the information to criminally investigate or prosecute any alcohol or drug abuse patient.[facility] HospitalIn the event this information is protected by the Federal Confidentiality of Alcohol and Drug Abuse Patient Records regulations: The Federal rules restrict any use of the information to criminally investigate or prosecute any alcohol or drug abuse patient.[facility] HospitalIn the event this information is protected by the Federal Confidentiality of Alcohol and Drug Abuse Patient Records regulations: The Federal rules restrict any use of the information to criminally investigate or prosecute any alcohol or drug abuse patient.[facility] HospitalIn the event this information is protected by the Federal Confidentiality of Alcohol and Drug Abuse Patient Records regulations: The Federal rules restrict any use of the information to criminally investigate or prosecute any alcohol or drug abuse patient.[facility] HospitalIn the event this information is protected by the Federal Confidentiality of Alcohol and Drug Abuse Patient Records regulations: The Federal rules restrict any use of the information to criminally investigate or prosecute any alcohol or drug abuse patient.[facility] HospitalIn the event this information is protected by the Federal Confidentiality of Alcohol and Drug Abuse Patient Records regulations: The Federal rules restrict any use of the information to criminally investigate or prosecute any alcohol or drug abuse patient.[facility] HospitalIn the event this information is protected by the Federal Confidentiality of Alcohol and Drug Abuse Patient Records regulations: The Federal rules restrict any use of the information to criminally investigate or prosecute any alcohol or drug abuse patient.[facility] HospitalIn the event this information is protected by the Federal Confidentiality of Alcohol and Drug Abuse Patient Records regulations: The Federal rules restrict any use of the information to criminally investigate or prosecute any alcohol or drug abuse patient.[facility] HospitalIn the event this information is protected by the Federal Confidentiality of Alcohol and Drug Abuse Patient Records regulations: The Federal rules restrict any use of the information to criminally investigate or prosecute any alcohol or drug abuse patient.[facility] HospitalIn the event this information is protected by the Federal Confidentiality of Alcohol and Drug Abuse Patient Records regulations: The Federal rules restrict any use of the information to criminally investigate or prosecute any alcohol or drug abuse patient.[facility] HospitalIn the event this information is protected by the Federal Confidentiality of Alcohol and Drug Abuse Patient Records regulations: The Federal rules restrict any use of the information to criminally investigate or prosecute any alcohol or drug abuse patient.[facility] HospitalIn the event this information is protected by the Federal Confidentiality of Alcohol and Drug Abuse Patient Records regulations: The Federal rules restrict any use of the information to criminally investigate or prosecute any alcohol or drug abuse patient.[facility] HospitalIn the event this information is protected by the Federal Confidentiality of Alcohol and Drug Abuse Patient Records regulations: The Federal rules restrict any use of the information to criminally investigate or prosecute any alcohol or drug abuse patient.[facility] HospitalIn the event this information is protected by the Federal Confidentiality of Alcohol and Drug Abuse Patient Records regulations: The Federal rules restrict any use of the information to criminally investigate or prosecute any alcohol or drug abuse patient.[facility] HospitalIn the event this information is protected by the Federal Confidentiality of Alcohol and Drug Abuse Patient Records regulations: The Federal rules restrict any use of the information to criminally investigate or prosecute any alcohol or drug abuse patient.[facility] HospitalIn the event this information is protected by the Federal Confidentiality of Alcohol and Drug Abuse Patient Records regulations: The Federal rules restrict any use of the information to criminally investigate or prosecute any alcohol or drug abuse patient.[facility] HospitalIn the event this information is protected by the Federal Confidentiality of Alcohol and Drug Abuse Patient Records regulations: The Federal rules restrict any use of the information to criminally investigate or prosecute any alcohol or drug abuse patient.[facility] HospitalIn the event this information is protected by the Federal Confidentiality of Alcohol and Drug Abuse Patient Records regulations: The Federal rules restrict any use of the information to criminally investigate or prosecute any alcohol or drug abuse patient.[facility] the event this information is protected by the Federal Confidentiality of Alcohol and Drug Abuse Patient Records regulations: The Federal rules restrict any use of the information to criminally investigate or prosecute any alcohol or drug abuse patient.[facility] HospitalIn the event this information is protected by the Federal Confidentiality of Alcohol and Drug Abuse Patient Records regulations: The Federal rules restrict any use of the information to criminally investigate or prosecute any alcohol or drug abuse patient.[facility] HospitalIn the event this information is protected by the Federal Confidentiality of Alcohol and Drug Abuse Patient Records regulations: The Federal rules restrict any use of the information to criminally investigate or prosecute any alcohol or drug abuse patient.[facility]In the event this information is protected by the Federal Confidentiality of Alcohol and Drug Abuse Patient Records regulations: The Federal rules restrict any use of the information to criminally investigate or prosecute any alcohol or drug abuse patient.[facility] HospitalIn the event this information is protected by the Federal Confidentiality of Alcohol and Drug Abuse Patient Records regulations: The Federal rules restrict any use of the information to criminally investigate or prosecute any alcohol or drug abuse patient.[facility] HospitalIn the event this information is protected by the Federal Confidentiality of Alcohol and Drug Abuse Patient Records regulations: The Federal rules restrict any use of the information to criminally investigate or prosecute any alcohol or drug abuse patient.[facility] HospitalIn the event this information is protected by the Federal Confidentiality of Alcohol and Drug Abuse Patient Records regulations: The Federal rules restrict any use of the information to criminally investigate or prosecute any alcohol or drug abuse patient.[facility] HospitalIn the event this information is protected by the Federal Confidentiality of Alcohol and Drug Abuse Patient Records regulations: The Federal rules restrict any use of the information to criminally investigate or prosecute any alcohol or drug abuse patient.[facility] HospitalIn the event this information is protected by the Federal Confidentiality of Alcohol and Drug Abuse Patient Records regulations: The Federal rules restrict any use of the information to criminally investigate or prosecute any alcohol or drug abuse patient.[facility] HospitalIn the event this information is protected by the Federal Confidentiality of Alcohol and Drug Abuse Patient Records regulations: The Federal rules restrict any use of the information to criminally investigate or prosecute any alcohol or drug abuse patient.[facility] HospitalIn the event this information is protected by the Federal Confidentiality of Alcohol and Drug Abuse Patient Records regulations: The Federal rules restrict any use of the information to criminally investigate or prosecute any alcohol or drug abuse patient.[facility] HospitalIn the event this information is protected by the Federal Confidentiality of Alcohol and Drug Abuse Patient Records regulations: The Federal rules restrict any use of the information to criminally investigate or prosecute any alcohol or drug abuse patient.[facility] HospitalIn the event this information is protected by the Federal Confidentiality of Alcohol and Drug Abuse Patient Records regulations: The Federal rules restrict any use of the information to criminally investigate or prosecute any alcohol or drug abuse patient.[facility] HospitalIn the event this information is protected by the Federal Confidentiality of Alcohol and Drug Abuse Patient Records regulations: The Federal rules restrict any use of the information to criminally investigate or prosecute any alcohol or drug abuse patient.[facility] HospitalIn the event this information is protected by the Federal Confidentiality of Alcohol and Drug Abuse Patient Records regulations: The Federal rules restrict any use of the information to criminally investigate or prosecute any alcohol or drug abuse patient.[facility] HospitalIn the event this information is protected by the Federal Confidentiality of Alcohol and Drug Abuse Patient Records regulations: The Federal rules restrict any use of the information to criminally investigate or prosecute any alcohol or drug abuse patient.[facility] HospitalIn the event this information is protected by the Federal Confidentiality of Alcohol and Drug Abuse Patient Records regulations: The Federal rules restrict any use of the information to criminally investigate or prosecute any alcohol or drug abuse patient.[facility] HospitalIn the event this information is protected by the Federal Confidentiality of Alcohol and Drug Abuse Patient Records regulations: The Federal rules restrict any use of the information to criminally investigate or prosecute any alcohol or drug abuse patient.[facility] HospitalIn the event this information is protected by the Federal Confidentiality of Alcohol and Drug Abuse Patient Records regulations: The Federal rules restrict any use of the information to criminally investigate or prosecute any alcohol or drug abuse patient.[facility] HospitalIn the event this information is protected by the Federal Confidentiality of Alcohol and Drug Abuse Patient Records regulations: The Federal rules restrict any use of the information to criminally investigate or prosecute any alcohol or drug abuse patient.[facility] HospitalIn the event this information is protected by the Federal Confidentiality of Alcohol and Drug Abuse Patient Records regulations: The Federal rules restrict any use of the information to criminally investigate or prosecute any alcohol or drug abuse patient.[facility] HospitalIn the event this information is protected by the Federal Confidentiality of Alcohol and Drug Abuse Patient Records regulations: The Federal rules restrict any use of the information to criminally investigate or prosecute any alcohol or drug abuse patient.[facility] HospitalIn the event this information is protected by the Federal Confidentiality of Alcohol and Drug Abuse Patient Records regulations: The Federal rules restrict any use of the information to criminally investigate or prosecute any alcohol or drug abuse patient.[facility] HospitalIn the event this information is protected by the Federal Confidentiality of Alcohol and Drug Abuse Patient Records regulations: The Federal rules restrict any use of the information to criminally investigate or prosecute any alcohol or drug abuse patient.[facility] Reason for Visit (unrecogniz ed section and [...] CT Specialty Diagnoses / Procedures Referred By Contac t Referred To Contact CT IMAGING Diagnoses Abnormal CT of the abdomen Liver 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 Procedures CT ABD/PEL W IVCON CT ABD & PELVIS W/CONTRAST 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, [employer]PER[employer] [address] [place] [address] [place] [address] Referral ID Status Reason Start Date Expiration Date V isits Requested Visits Authorized [id number] Closed Auto-Generate d Referral 11/25/2022 12/25/2022 2 2 Reason Comments Radiology US Specialty Diagnoses / Procedures Referred By Contac t Referred To Contact US IMAGING Diagnoses Epigastric pain Procedures US ABD RT UPPER QUADRANT US ABDOMINAL REAL TIME W/IMAGE LIMITED Clifton Hung MD [address] [place] [address] [place] [address] Referral ID Status Reason Start Date Expiration Date V isits Requested Visits Authorized [id number] Closed Auto-Generate d Referral 09/03/2022 10/03/2023 1 1 Specialty Diagnoses / Procedures Referred By Contac t Referred To Contact CT IMAGING Diagnoses Breast neoplasm, Tis (DCIS), left Nausea Pain of upper abdomen Procedures CT CHEST W IVCON DIAGNOSTIC COMPUTED TOMOGRAPHY THORAX W/CONTRAST 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, 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 [employer] [address] [place] [address] [place] [address] Referral ID Status Reason Start Date Expiration Date V isits Requested Visits Authorized [id number] Closed Auto-Generate d Referral 09/15/2022 10/15/2022 2 2 Reason Comments Outside Ophtalmology Reason Comments Outside [id number] Ordered Care Teams (unrecognized sec tion and content) Chief Strategy Officer Relationship Specialty Start Date End Date Clifton Hung MD [address] [place], [place] [id number] PCP - General Family Practice 01/16/16 Renata Barnhart MD, [address], [place] [id number] Physician Radiation Oncology 04/25/21 Chief Strategy Officer Relationship Specialty Start Date End Date Clifton Hung MD [address] [place] [address] PCP - General Family Practice 01/16/16 Renata Barnhart MD, [address] [place] [address] Physician Radiation Oncology 04/25/21 Chief Strategy Officer Relationship Specialty Start Date End Date Clifton Hung MD [address] [facility] [place] [address] PCP - General Family Practice 01/16/16 Renata Barnhart MD, [address] [place] [address] Physician Radiation Oncology 04/25/21 Chief Strategy Officer Relationship Specialty Start Date End Date Clifton Hung MD [address] [facility] [place] [address] PCP - General Family Practice 01/16/16 Renata Barnhart MD, [address] [place] [address] Physician Radiation Oncology 04/25/21 Chief Strategy Officer Relationship Specialty Start Date End Date Clifton Hung MD [address] [facility] [place] [address] PCP - General Family Practice 01/16/16 Renata Barnhart MD, [address] [place] [address] Physician Radiation Oncology 04/25/21 Chief Strategy Officer Relationship Specialty Start Date End Date Clifton Hung MD [address] [facility] [place] [address] PCP - General Family Practice 01/16/16 Renata Barnhart MD, [address] [place] [address] Physician Radiation Oncology 04/25/21 Chief Strategy Officer Relationship Specialty Start Date End Date Clifton Hung MD [address] [facility] [place] [address] PCP - General Family Practice 01/16/16 Renata Barnhart MD, [address] [place] [address] Physician Radiation Oncology 04/25/21 Chief Strategy Officer Relationship Specialty Start Date End Date Clifton Hung MD [address] [facility] [place] [address] PCP - General Family Practice 01/16/16 Renata Barnhart MD, [address] [place] [address] Physician Radiation Oncology 04/25/21 Chief Strategy Officer Relationship Specialty Start Date End Date Clifton Hung MD [address] [facility] [place] [address] PCP - General Family Practice 01/16/16 Renata Barnhart MD, [address] [place] [address] Physician Radiation Oncology 04/25/21 Chief Strategy Officer Relationship Specialty Start Date End Date Clifton Hung MD [address] [place] [address] PCP - General Family Medicine 01/16/16 Renata Barnhart MD, [address] [place] [address] Physician Radiation Oncology 04/25/21 Chief Strategy Officer Relationship Specialty Start Date End Date Clifton Hung MD [address] [facility] [place] [address] PCP - General Family Medicine 01/16/16 Renata Barnhart MD, [address] [place] [address] Physician Radiation Oncology 04/25/21 Chief Strategy Officer Relationship Specialty Start Date End Date Clifton Hung MD [address] [place] [address] PCP - General Family Medicine 01/16/16 Renata Barnhart MD, [address] [place] [address] Physician Radiation Oncology 04/25/21 Chief Strategy Officer Relationship Specialty Start Date End Date Clifton Hung MD [address] [place] [address] PCP - General Family Medicine 01/16/16 Renata Barnhart MD, [address] [place] [address] Physician Radiation Oncology 04/25/21 Chief Strategy Officer Relationship Specialty Start Date End Date Clifton Hung MD [address] [place] [address] PCP - General Family Medicine 01/16/16 Renata Barnhart MD, [address] [place] [address] Physician Radiation Oncology 04/25/21 Chief Strategy Officer Relationship Specialty Start Date End Date Clifton Hung MD [address] [place] [address] PCP - General Family Medicine 01/16/16 Renata Barnhart MD, [address] [place] [address] Physician Radiation Oncology 04/25/21 Chief Strategy Officer Relationship Specialty Start Date End Date Clifton Hung MD [address] [place] [address] PCP - General Family Medicine 01/16/16 Renata Barnhart MD, [address] [place] [address] Physician Radiation Oncology 04/25/21 Chief Strategy Officer Relationship Specialty Start Date End Date Clifton Hung MD [address] [facility] [place] [address] PCP - General Family Medicine 01/16/16 Renata Barnhart MD, [address] [place] [address] Physician Radiation Oncology 04/25/21 Chief Strategy Officer Relationship Specialty Start Date End Date Clifton Hung MD [address] [place] [address] PCP - General Family Medicine 01/16/16 Renata Barnhart MD, [address] [place] [address] Physician Radiation Oncology 04/25/21 Chief Strategy Officer Relationship Specialty Start Date End Date Clifton Hung MD [address] [place] [address] PCP - General Family Medicine 01/16/16 Renata Barnhart MD, [address] [place] [address] Physician Radiation Oncology 04/25/21 Chief Strategy Officer Relationship Specialty Start Date End Date Clifton Hung MD [address] [place] [address] PCP - General Family Medicine 01/16/16 Renata Barnhart MD, [address] [place] [address] Physician Radiation Oncology 04/25/21 Chief Strategy Officer Relationship Specialty Start Date End Date Clifton Hung MD [address] [facility] [place] [address] PCP - General Family Medicine 01/16/16 Renata Barnhart MD, [address] [facility] [place] [address] Physician Radiation Oncology 04/25/21 Chief Strategy Officer Relationship Specialty Start Date End Date Clifton Hung MD [address] [facility] [place] [address] PCP - General Family Medicine 01/16/16 Renata Barnhart MD, [address] [place] [address] Physician Radiation Oncology 04/25/21 Chief Strategy Officer Relationship Specialty Start Date End Date Clifton Hung MD [address] [facility] [place] [address] PCP - General Family Medicine 01/16/16 Renata Barnhart MD, [address] [place] [address] Physician Radiation Oncology 04/25/21 Chief Strategy Officer Relationship Specialty Start Date End Date Clifton Hung MD [address] [place] [address] PCP - General Family Medicine 01/16/16 Renata Barnhart MD, [address] [place] [address] Physician Radiation Oncology 04/25/21 Chief Strategy Officer Relationship Specialty Start Date End Date Clitfon Hung MD [address] [facility] [place] [address] PCP - General Family Medicine 01/16/16 Renata Barnhart MD, [address] [place] [address] Physician Radiation Oncology 04/25/21 Chief Strategy Officer Relationship Specialty Start Date End Date Clifton Hung MD [address] [facility] [place] [address] PCP - General Family Medicine 01/16/16 Renata Barnhart MD, [address] [place] [address] Physician Radiation Oncology 04/25/21 Chief Strategy Officer Relationship Specialty Start Date End Date Clifton Hung MD [address] [facility] [place] [address] PCP - General Family Medicine 01/16/16 Renata Barnhart MD, [address] [place] [address] Physician Radiation Oncology 04/25/21 Chief Strategy Officer Relationship Specialty Start Date End Date Clifton Hung MD [address] [facility] [place] [address] PCP - General Family Medicine 01/16/16 Renata Barnhart MD, [address] [place] [address] Physician Radiation Oncology 04/25/21 Chief Strategy Officer Relationship Specialty Start Date End Date Clifton Hung MD [address] [facility] [place] [address] PCP - General Family Medicine 01/16/16 Renata Barnhart MD, [address] [place] [address] Physician Radiation Oncology 04/25/21 Chief Strategy Officer Relationship Specialty Start Date End Date Clifton Hung MD [address] [place] [address] PCP - General Family Medicine 01/16/16 Renata Barnhart MD, [address] [place] [address] Physician Radiation Oncology 04/25/21 Chief Strategy Officer Relationship Specialty Start Date End Date Clifton Hung MD [address] [place] [address] PCP - General Family Medicine 01/16/16 Renata Barnhart MD, MD [address] [place] [address] Physician Radiation Oncology 04/25/21 Chief Strategy Officer Relationship Specialty Start Date End Date Clifton Hung MD [address] [place] [address] PCP - General Family Medicine 01/16/16 Renata Barnhart MD, [address] [place] [address] Physician Radiation Oncology 04/25/21 Chief Strategy Officer Relationship Specialty Start Date End Date Clifton Hung MD [address] [place] [address] PCP - General Family Medicine 01/16/16 Renata Barnhart MD, [address] [place] [address] Physician Radiation Oncology 04/25/21 Chief Strategy Officer Relationship Specialty Start Date End Date Clifton Hung MD [address] [place] [address] PCP - General Family Medicine 01/16/16 Renata Barnhart MD, [address] [place] [address] Physician Radiation Oncology 04/25/21 Chief Strategy Officer Relationship Specialty Start Date End Date Clifton Hung MD [address] [place] [address] PCP - General Family Medicine 01/16/16 Renata Barnhart MD, [address] [place] [address] Physician Radiation Oncology 04/25/21 Chief Strategy Officer Relationship Specialty Start Date End Date Clifton Hung MD [address] [place] [address] PCP - General Family Medicine 01/16/16 Renata Barnhart MD, [address] [place] [address] Physician Radiation Oncology 04/25/21 Chief Strategy Officer Relationship Specialty Start Date End Date Clifton Hung MD [address] [place] [address] PCP - General Family Medicine 01/16/16 Renata Barnhart MD, [address] [place] [address] Physician Radiation Oncology 04/25/21 Chief Strategy Officer Relationship Specialty Start Date End Date Clifton Hung MD [address] [place] [address] PCP - General Family Medicine 01/16/16 Renata Barnhart MD, MD [address] [place] [address] Physician Radiation Oncology 04/25/21 Chief Strategy Officer Relationship Specialty Start Date End Date Clifton Hung MD [address] [place] [address] PCP - General Family Medicine 01/16/16 Renata Barnhart MD, [address] [place] [address] Physician Radiation Oncology 04/25/21 Chief Strategy Officer Relationship Specialty Start Date End Date Clifton Hung MD [address] [place] [address] PCP - General Family Medicine 01/16/16 Renata Barnhart MD, [address] [place] [address] Physician Radiation Oncology 04/25/21 Chief Strategy Officer Relationship Specialty Start Date End Date Clifton Hung MD [address] [place] [address] PCP - General Family Medicine 01/16/16 Renata Barnhart MD [address] [place] [address] Physician Radiation Oncology 04/25/21 INFORMATION SOURCE (unrecogn ized section and content) DATE CREATED AUTHOR AUTHOR'S ORGANIZ ATION 12/11/2023 [facility] FOR RECORDS PERTAINING TO PATIENTS WHO ARE [...] BE BASED ON THE PRIMARY CLINICAL RECORDS. [facility] [employer] [facility]. provides no warranty or guarantee of the accuracy or completeness of information in this document.
--- NOTE | 2023-12-28 02:39 | EDS_ITS ---
HPI History of Present Illness Chief Complaint: Headache Informant: patient Narrative Narrative: Patient is a 68-year-old female with past medical history of hypertension type 2 diabetes and recent diagnosis of influenza. Patient states she has had generalized fatigue with congestion and cough since her development of influenza and she is also had persistent headache. She states she was able to fall asleep today and when she awoke in the evening did not take her nighttime blood pressure medications but noted a increase in her headache. She states that she checked her blood pressure when she noticed the increase in her headache and it was elevated and this concerned her so therefore she comes to the hospital for evaluation. Patient states that there is no illicit substances or excessive stimulant use [facility] Medical History Anxiety Arthritis Atherosclerotic heart disease of [place] coronary artery without angina pectoris Breast cancer, left Cardiology follow-up encounter Cardiovascular stress test abnormal Chest pain Colon polyp COVID-19 (~10/2022) CPAP (continuous positive airway pressure) dependence Dietary restriction Discoloration of skin Easy bruising Encounter for long-term (current) use of other medications Epigastric pain Excessive bleeding Former smoker Gastric reflux Heart palpitations History of pain when walking History of TIA (transient ischemic attack) Hx of cardiovascular stress test (~09/13/18) Hx of echocardiogram (~06/30/17) Hx of gastritis IBS (irritable bowel syndrome) Injury of head and neck Leg cramps Loss of hearing Menieres disease Mixed hyperlipidemia Nausea Presence of stent in coronary artery (~01/05/17) Psoriasis Rosacea Shortness of breath on exertion Vitamin D deficiency Wears glasses Home Medications L.acidoph, paracasei,B. lactis 10 billion cell capsule 1 ea PO QHS 09/23/16 [History Last Taken 06/28/17] cholecalciferol (vitamin D3) 50 mcg (2,000 unit) capsule 4,000 unit PO DAILY 08/22/18 [History Last Taken Unknown] montelukast 10 mg tablet 10 mg PO QPM 08/22/18 [History Last Taken Unknown] coenzyme Q10 100 mg capsule 100 mg PO DAILY 08/23/19 [History Last Taken Unknown] metformin 500 mg 24 hr tablet,extended release (gastric retention) 1,000 mg PO BID 11/24/21 [History Last Taken Unknown] potassium chloride 10 mEq tablet,extended release 20 meq PO BID 11/24/21 [History Last Taken Unknown] tamoxifen 20 mg tablet 20 mg PO DAILY 11/24/21 [History Last Taken Unknown] doxycycline monohydrate 50 mg capsule 50 mg PO DAILY PRN Skin 05/28/22 [History Last Taken Unknown] nitroglycerin 0.4 mg sublingual tablet 0.4 mg sublingual Q5M PRN Chest Pain #25 tabs 05/28/22 [Rx Last Taken Unknown] clobetasol 0.05 % topical gel 1 applic topical DAILY PRN Skin Cleansing 09/03/22 [History Last Taken Unknown] magnesium oxide 500 mg PO DAILY 09/03/22 [History Last Taken Unknown] omeprazole 40 mg capsule,delayed release 40 mg PO DAILY 11/30/22 [History Last Taken Unknown] choavm-radpphvf-dokepbo 36,000-114,000-180,000 unit capsule,delay rel (Creon) See Rx Instructions PO .COMPLEX #56 caps 03/04/23 [Rx Last Taken Unknown] metoprolol tartrate 25 mg tablet 25 mg PO BID #180 tabs 03/15/23 [Rx Last Taken Unknown] Handicap Placard #1 ea 08/30/23 [Rx Last Taken Unknown] calcium citrate 315 mg calcium-vitamin D3 6.25 mcg (250 unit) tablet 2 tab PO DAILY 08/30/23 [History Last Taken Unknown] ezetimibe 10 mg tablet (Zetia) 10 mg PO DAILY 08/30/23 [History Last Taken Unknown] ketoconazole 2 % shampoo 1 applic topical QODAY 08/30/23 [History Last Taken Unknown] lisinopril 5 mg tablet 30 mg PO BID This is a dose increase 08/30/23 [History Last Taken Unknown] lactulose 10 gram/15 mL oral solution 15 ml PO DAILY PRN constipation #473 mL 11/03/23 [Rx Last Taken Unknown] Allergy/AdvReac Type Severity Reaction Status Date / Time lovastatin Allergy Intermediate Other Verified 12/22/23 13:22 rosuvastatin [From Crestor] Allergy Intermediate Other Verified 12/22/23 13:22 ticagrelor [From Brilinta] Allergy Intermediate Shortness Verified 12/22/23 13:22 of breath hydrocodone Allergy Hives Verified 12/22/23 13:22 cephalexin monohydrate AdvReac Other Verified 12/22/23 13:22 [From Keflex] pravastatin AdvReac myalgias Verified 12/22/23 13:22 Family History Mother Cancer pancreatic cancer Father , [place] age 20's (premature CAD), 3 vessel CABG, hyperlipidemia, CHf Myocardial infarction CAD (coronary artery disease) Brother Cancer lung cancer Surgical History Ductal carcinoma in situ (DCIS) of left breast History of bunionectomy of left great toe History of cardiac catheterization (~10/12/18) History of carpal tunnel release of both wrists History of section History of cholecystectomy History of coronary artery stent placement (~12/30/16) History of detached retina repair (~04/2023) History of hysterectomy History of lumpectomy of left breast History of parathyroidectomy Hx of foot surgery Hx of release of tendon (~01/13/23) Status post excision of lipoma (~11/2018) Status post lumbar spine operative procedure for decompression of spinal cord Status post trigger finger release Social History household members: spouse housing: house current occupational status: employed Smoking Status: Former smoker quit date: 11/08/87 pack-years: 6 how long ago did patient quit smokin second hand exposure: Yes alcohol intake: never substance use type: does not use caffeine: Yes Type: coffee Number of servings: 2 what type of physical activity do you participate in: none seatbelt use: always do you feel safe at home: Yes ROS ROS ED Constitutional Constitutional ED: Denies chills or fever(s) Eyes Eyes: Denies change in vision ENT ENT ED: Reports rhinorrhea; Denies sore throat Cardiovascular Cardiovascular: Denies chest pain, palpitations or racing heartbeat Respiratory/Chest Respiratory/Chest: Reports cough; Denies dyspnea Gastrointestinal Gastrointestinal: Reports nausea; Denies abdominal pain, diarrhea or vomiting Genitourinary Genitourinary ED: Denies dysuria Musculoskeletal Musculoskeletal: Reports myalgias Integumentary Denies rash Neurologic Neurologic: Reports headache(s) Hematologic/Lymphatic Hematologic/Lymphatic: Denies easy bleeding or easy bruising EXAM Physical Exam Const Vital Signs: 12/28/23 00:40 12/28/23 00:42 12/28/23 01:33 Temperature 97.1 F L 97.1 F L Temperature Source Temporal Temporal Pulse Rate 79 76 63 Respiratory Rate 18 15 13 Blood Pressure 226/90 H 226/90 H 174/79 H Blood Pressure Mean 135 135 110 Pulse Ox 99 99 98 Oxygen Delivery Method Room Air Room Air Room Air 12/28/23 01:44 12/28/23 02:19 12/28/23 02:21 Temperature Temperature Source Pulse Rate 78 85 77 Respiratory Rate 16 16 19 H Blood Pressure 194/90 H 171/72 H 177/72 H Blood Pressure Mean 124 105 107 Pulse Ox 98 99 96 Oxygen Delivery Method Room Air Room Air Room Air 12/28/23 02:53 Temperature 98 F Temperature Source Pulse Rate 96 Respiratory Rate 18 Blood Pressure 188/65 H Blood Pressure Mean 106 Pulse Ox 96 Oxygen Delivery Method Positive well nourished and well developed General Appearance ED: well developed; Negative for pallor HEENT HEENT Narrative: Patient has cobblestoning in the posterior pharynx consistent with sinus drainage without airway edema or compromise No signs of infection noted in the posterior pharynx either Eyes PERRL and EOMs intact bilaterally General Eye ED: Negative for scleral icterus Neck supple Neck Narrative: No nuchal rigidity or meningeal signs present Resp normal respiratory effort and clear to auscultation bilaterally Resp Narrative: No nasal flaring retractions tachypnea or accessory muscle use Cardio regular rate and regular rhythm Rate: other Other Details: Radial and carotid pulses equal and symmetric No carotid bruit noted GI normal to inspection, nondistended, normoactive bowel sounds, non-tender, non- distended and no masses GI Narrative: No voluntary guarding or rigidity No pulsatile mass or fluid wave Auscultation: normoactive bowel sounds Palpation: soft Extremity normal to inspection Extremity Narrative: No asymmetric edema no pitting edema negative Homans' sign bilaterally Neuro oriented x3, CN's II-XII intact bilaterally and no sensory deficits noted Neuro Narrative: Cranial nerves II through XII are grossly intact there are no focal neurologic deficits No pronator drift no dysmetria no truncal ataxia NIH stroke scale score of 0 Sensorium / Orientation: alert Motor Exam: strength 5/5 throughout Psych mental status grossly normal Skin no rashes or lesions noted and no wounds General Skin Exam: Negative for jaundice or pallor MDM MDM MDM Narrative Medical decision making narrative: Patient arrived to the ER hypertensive otherwise with stable vitals. She has a past medical history of hypertension and reported not taking her nighttime blood pressure meds which could account for her elevated blood pressure as well as her headache. She does not have physical exam findings of endorgan damage such as hypertensive encephalopathy as her mental status is normal and she denies any chest pain or shortness of breath going against acute coronary syndrome. At this time she is a known diagnosis of recent influenza which could account for her recurrent headache and she also did not take her blood pressure medications this evening which could account for worsening symptoms and the elevated hypertension. Therefore I felt no need for repeat imaging or blood work at this time. Patient was given IV hydralazine for hypertension as her heart rate was approximately 65. She was then medicated with Toradol Benadryl and Reglan secondary to her headache. On reevaluation she reports resolution of her headache and her blood pressure has reduced between 15 and 25% which is goal in the ER. On reevaluation her neurologic exam remains normal as well. Therefore with improvement of blood pressure as well as resolution of headache and a normal neurologic exam I do not feel there is need for further evaluation and patient is otherwise safe for discharge History & Record Review Discussion w/independent historian: Patient Discharge Plan Triage Chief Complaint: Headache ED Provider: Victor M Hernandez Dx/Rx/DC Orders Clinical Impression: Influenza A, Accelerated hypertension, Cephalgia, DM2 (diabetes mellitus, type 2) Instructions: ED Headache Unspecified, ED Hypertension, Established Prescriptions: No Action montelukast 10 mg tablet 10 mg PO QPM coenzyme Q10 100 mg capsule 100 mg PO DAILY ezetimibe [Zetia] 10 mg tablet 10 mg PO DAILY tamoxifen 20 mg tablet 20 mg PO DAILY Hold Instructions: X2 weeks to r/o side effects potassium chloride 10 mEq tablet extended release 20 meq PO BID doxycycline monohydrate 50 mg capsule 50 mg PO DAILY PRN (Reason: Skin) clobetasol 0.05 % gel 1 applic topical DAILY PRN (Reason: Skin Cleansing) nitroglycerin 0.4 mg tablet, sublingual 0.4 mg SUBLINGUAL Q5M PRN (Reason: Chest Pain) Qty: 25 3RF Patient Comments: CHEST PAIN magnesium oxide 500 mg tablet 500 mg PO DAILY calcium citrate-vitamin D3 315 mg-6.25 mcg (250 unit) tablet 2 tab PO DAILY ketoconazole 2 % shampoo 1 applic topical QODAY lisinopril 5 mg tablet 30 mg PO BID Patient Comments: BP (DME) Handicap Placard See Rx Instructions Qty: 1 0RF Dose Instruction: As directed Rx Instructions: As directed; Good from 10/06/2023 to 10/06/2028 L.acidoph, paracasei,B. lactis 1 EACH capsule 1 ea PO QHS Patient Comments: GI HEALTH metformin 500 mg tablet,ER erlin.retention 24 hr 1,000 mg PO BID Patient Comments: 1000mg at dinner; diabetes cholecalciferol (vitamin D3) 2,000 unit capsule 4,000 unit PO DAILY Patient Comments: SUPPLEMENT omeprazole 40 mg Capsule,Delayed Release(Dr/Ec) 40 mg PO DAILY Creon 36,000-114,000- 180,000 unit capsule,delayed release(DR/EC) See Rx Instructions PO .COMPLEX Qty: 56 0RF Rx Instructions: take 1-2 with snacks and 2-3 with meals metoprolol tartrate 25 mg tablet 25 mg PO BID Qty: 180 3RF lactulose 10 gram/15 mL solution 15 ml PO DAILY PRN (Reason: constipation) Qty: 473 1RF Primary Care Provider: Clifton Jennings Referrals: Clifton Jennings MD [Primary Care Provider] - Activity Restrictions/Additional Instructions: This evening you can take your lisinopril but I would hold off on the metoprolol as we gave you medication in the ER similar to it. However beginning in the daytime you can resume all of your home medications as previously directed. Your headache seems to be related to your influenza diagnosis as well as the elevated blood pressure therefore make sure you are controlling your pressure and the headache should resolve as the influenza cleared from your body over the next few days Disposition Disposition: Home, Self Care Discharge Date/Time: 12/28/23 02:57
--- NOTE | 2023-12-28 02:54 | ED.RN ---
This RN educated the patient on taking both of her blood pressure meds when she gets home due to them still being elevated at 188-190's systolic. The patient's was slightly irritated about her blood pressure being elevated still. This RN informed them that her blood pressure of 220's systolic when she first came in has been treated and she will continue to treat them at home with her 2 prescribed blood pressure meds.
== END 2023-12-28 02:57 | disposition home or self-care (01) ==
PROVIDERS: Emergency Provider Emergency Medicine; PCP Family Medicine; Visit Provider Emergency Medicine
DX: J10.1 Influenza due to other identified influenza virus with other respiratory manifestations (principal); E11.9 Type 2 diabetes mellitus without complications; R51.9 Headache, unspecified; I25.10 Atherosclerotic heart disease of native coronary artery without angina pectoris; Z87.891 Personal history of nicotine dependence; Z86.16 Personal history of COVID-19; Z86.73 Personal history of transient ischemic attack (TIA), and cerebral infarction without residual deficits; Z95.5 Presence of coronary angioplasty implant and graft
CPT/HCPCS: 96374; 96375; 99284; A4216

== ENCOUNTER → 2024-01-03 | Outpatient (CLI) | payer MEDICARE, SELFPAY ==
[2017-01-04 15:17] VITALS: BMI 30.1
--- NOTE | 2024-01-03 07:12 | MRI_ITS ---
EXAM: MR ABDOMEN WITHOUT INTRAVENOUS CONTRAST, MRCP PROTOCOL CLINICAL INDICATION: ca 19-9 elevated/ FH pancreatic cancer TECHNIQUE: Multiplanar and multisequence MR images of the abdomen without intravenous contrast obtained with MRCP sequence. Three-dimensional post-processing reconstructions were performed. COMPARISON: No relevant prior studies available. FINDINGS: LOWER THORAX: Normal. No pleural effusion. LIVER: Normal. Normal morphology. GALLBLADDER AND BILE DUCTS: Common bile duct measures 7 mm in maximum diameter which is normal for postcholecystectomy patient. PANCREAS: Pancreas is absent. No focal cystic or solid mass. No pancreatic duct dilation. SPLEEN: Normal. Non-enlarged. ADRENALS: Normal. No nodules. KIDNEYS AND URETERS: 12 mm right renal cyst. Normal renal size and position. No hydronephrosis. INTRAPERITONEAL SPACE: Normal. No ascites or other fluid collection. VASCULATURE: Normal. Abdominal aorta is non-dilated. LYMPH NODES: No enlarged lymph nodes. MRI/MRCP Abdomen without Contrast IMPRESSION: No evidence of a pancreatic mass. Normal MRI of the upper abdomen status post cholecystectomy Electronically Signed: Tony Condon MD at 9:59 EST ,
--- OUTSIDE RECORDS SUMMARY | 2024-01-03 07:22 | XMS RPT_ITS | CCD ---
Author Name Unknown Address [address] [place] [address] Organization [facility] Care Team Providers Care Interventional Physician Name Role Phone Moni Garcia Unavailable Unavailable Yandel INDUSTRIAL ANALYST, Octaviano Viera Unavailable Moni Garcia Unavailable Unavailable Manda Peck Unavailable Unavailable Yee Mei Unavailable Jennifer RN, Nancy Callahan Unavailable Moni Garcia Unavailable Unavailable Jennifer ALARCON, Nancy Callahan Unavailable Jennifer ALARCON, Nancy Callahan Unavailable AGNES Paige, Blanca Myles Unavailable UnavailClifton Goetz MD Primary Care Provider Obey MONK MD, Trentonung Unavailable Clifton Hung MD Primary Care Provider Obey MONK MD, Dasantosung Unavailable Clifton Hung MD Primary Care Provider Clifton Hung MD Primary Care Provider Obey MONK MD, Daesung Unavailable TEO HUTCHINS DR Admitting Unavailable TEO HUTCHINS DR Attending Unavailable TEO HUTCHINS DR Primary Care Unavailable CLIFTON HUNG MD Consulting Unavailable PROVIDER, UNKNOWN Consulting Unavailable Renata Barnhart MD Unavailable CLIFTON HUNG Primary Care Unavailable JULIETH MARIEE Attending Unavailable JULIETH MARIEE Referring Unavailable CHERISE SIFUENTES Referring Unavailable CLIFTON HUNG Primary Care Unavailable CHERISE SIFUENTES Referring Unavailable ABHILASH, CLIFTON A Attending Unavailable ABHILASHGILDA LONGORIAREY A Primary Care Unavailable ABHILASHGILDA LONGORIAREY A Referring Unavailable ABHILASH, CLIFTON A Primary Care Unavailable ABHILASH, CLIFTON A Primary Care Unavailable SIMA DUMONT Attending Unavailable ABHILASH, CLIFTON A Primary Care Unavailable JULIETH MARIEE Referring Unavailable ABHILASH, CLIFTON A Primary Care Unavailable JULIETH MARIEE Attending Unavailable JULIETH MARIEE Referring Unavailable ABHILASH, CLIFTON [...] [CEPHALEXIN] drug allergy 6 Other: See Comments [facility] Work Phone: (20 sources) Acetaminophen / HYDROcodone; Translations: [HYDROCODONE-ACET AMINOPHEN] Drug Allergy 6 Itching [facility] Work Phone: (20 sources) atorvastatin; Translations: [ATORVASTATIN] Drug Allergy 3 Other: See Comments [facility] Work Phone: (20 sources) Lovastatin; Translations: [LOVASTATIN] Drug Allergy 3 Other: See Comments [facility] Work Phone: (20 sources) rosuvastatin; Translations: [ROSUVASTATIN] Drug Allergy 0 Myalgia [facility] Work Phone: (20 sources) Ticagrelor; Translations: [TICAGRELOR] Drug Allergy 7 Shortness of Breath [facility] Work Phone: (1 source) Codeine Drug Allergy [facility] Medications Current Medications Medication Drug Class(es) [...] disease (20 sources) Atherosclerotic heart disease of [place] coronary artery without angina pectoris; Translations: [Coronary [...] Other hereditary and degenerative nervous system conditions (19 sources) Restless legs; Translations: [Restless legs syndrome] [...] (5 sources) Long-term drug therapy; Translations: [Other long-term (current) drug therapy] Onset: 01-20-2017 01-20-2017 Unclassified (1 source) Finding of body mass index; Translations: [Body mass index (BMI) 28.0-28.9, adult] Onset: 01-20-2017 01-20-2017 Past or Other Problems Problem Classification Problem Date Documented Da te Episodic/Chronic Administrative/social admission (14 sources) Advance directive discussed with patient; Translations: [Other specified counseling] Onset: 04-08-2023 Episodic Coronary atherosclerosis and other heart disease (20 sources) Presence of coronary angioplasty implant and graft; Translations: [Post percutaneous transluminal coronary angioplasty] Onset: 01-05-2017 03-31-2017 Episodic Other aftercare (6 sources) Other watermaster (current) drug therapy; Translations: [Other long-term (current) drug therapy] Onset: 01-20-2017 01-20-2017 Episodic [...] 09-26-2021 09-26-2021 Episodic Pancreatic disorders (not diabetes) (14 sources) Pancreatic insufficiency; Translations: [Other specified diseases of pancreas] Onset: 04-08-2023 Episodic Residual codes; unclassified (13 sources) Active living will ; Translations: [Other [...] 64.86 kg Francine Madrid APRN.CNP Work Phone: [facility] 10-08-2023 08:59-0500 Diastolic blood pressure 85 mm[Hg] Francine Madrid APRN.CNP Work Phone: [facility] 10-08-2023 08:59-0500 Heart rate 62 /min Francine Madrid APRN.CNP Work Phone: [facility] 10-08-2023 08:59-0500 Respiratory rate 14 /min Francine Madrid APRN.CNP Work Phone: [facility] 10-08-2023 08:59-0500 Systolic blood pressure 166 mm[Hg] Francine Madrid APRN.CNP Work Phone: [facility] 07-23-2023 11:06-0400 Body weight 63.14 kg Sima Dumont CONTROL SYSTEMS ENGINEER.[employer] Work Phone: [facility] 07-23-2023 11:06-0400 Diastolic blood pressure 78 mm[Hg] Sima Dumont CONTROL SYSTEMS ENGINEER.[employer] Work Phone: [facility] 07-23-2023 11:06-0400 Systolic blood pressure 120 mm[Hg] Sima Dumont CONTROL SYSTEMS ENGINEER.[employer] Work Phone: [facility] 04-08-2023 13:05-0400 Body height 157.5 cm Clifton Hung MD Work Phone: [facility] 04-08-2023 13:05-0400 Body weight 60.33 kg Clifton Hung MD Work Phone: [facility] 04-08-2023 13:05-0400 Diastolic blood pressure 84 mm[Hg] Clifton Hung MD Work Phone: [facility] 04-08-2023 13:05-0400 Heart rate 70 /min Clifton Hung MD Work Phone: [facility] 04-08-2023 13:05-0400 Respiratory rate 16 /min Clifton Hung MD Work Phone: [facility] 04-08-2023 13:05-0400 Systolic blood pressure 128 mm[Hg] Clifton Hung MD Work Phone: [facility] 02-26-2023 09:52-0400 Body height 158 cm 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 CONTROL SYSTEMS ENGINEER.[employer] Work Phone: [facility] 02-26-2023 09:52-0400 Body temperature 97.11 [degF] 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 CONTROL SYSTEMS ENGINEER.[employer] Work Phone: [facility] 02-26-2023 09:52-0400 Body weight 61.69 kg Somerset Mariee CONTROL SYSTEMS ENGINEER.[employer] Work Phone: [facility] 02-26-2023 09:52-0400 Diastolic blood pressure 70 mm[Hg] 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 CONTROL SYSTEMS ENGINEER.[employer] Work Phone: [facility] 02-26-2023 09:52-0400 Heart rate 82 /min 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 CONTROL SYSTEMS ENGINEER.[employer] Work Phone: [facility] 02-26-2023 09:52-0400 SaO2% (BldA) [Mass fraction] 100 % Juleith Mariee CONTROL SYSTEMS ENGINEER.[employer] Work Phone: [facility] 02-26-2023 09:52-0400 Systolic blood pressure 132 mm[Hg] 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 CONTROL SYSTEMS ENGINEER.[employer] Work Phone: [facility] 02-09-2023 07:43-0400 Body temperature 98.71 [degF] Cherise Sifuentes PA-C Work Phone: [facility] 02-09-2023 07:43-0400 Body weight 61.69 kg Cherise Sifuentes PA-C Work Phone: [facility] 02-09-2023 07:43-0400 Diastolic blood pressure 78 mm[Hg] Cherise Sifuentes PA-C Work Phone: [facility] 02-09-2023 07:43-0400 Heart rate 80 /min Cheriseny Sifuentes PA-C Work Phone: [facility] 02-09-2023 07:43-0400 Respiratory rate 18 /min Cherise Sifuentes PA-C Work Phone: [facility] 02-09-2023 07:43-0400 Systolic blood pressure 122 mm[Hg] Cherise Sifuentes PA-C Work Phone: [facility] 02-05-2023 09:19-0400 Body temperature 98.91 [degF] Lori Barriga CONTROL SYSTEMS ENGINEER.[employer] Work Phone: [facility] 02-05-2023 09:19-0400 Body weight 63.23 kg Lori Barriga CONTROL SYSTEMS ENGINEER.[employer] Work Phone: [facility] 02-05-2023 09:19-0400 Diastolic blood pressure 72 mm[Hg] Lori Nithya CONTROL SYSTEMS ENGINEER.[employer] Work Phone: [facility] 02-05-2023 09:19-0400 Heart rate 92 /min Lori Barriga APRN.[employer] Work Phone: [facility] 02-05-2023 09:19-0400 Respiratory rate 18 /min Lori Barriga APRN.[employer] Work Phone: [facility] 02-05-2023 09:19-0400 SaO2% (BldA) [Mass fraction] 98 % Lori Barriga APRN.[employer] Work Phone: [facility] 02-05-2023 09:19-0400 Systolic blood pressure 112 mm[Hg] Lori Barriga APRN.[employer] Work Phone: [facility] 12-09-2022 07:04-0500 Body weight 66.68 kg Sima Dumont APRN.[employer] Work Phone: [facility] 12-09-2022 07:04-0500 Diastolic blood pressure 62 mm[Hg] Sima Dumont APRN.[employer] Work Phone: [facility] 12-09-2022 07:04-0500 Systolic blood pressure 110 mm[Hg] Sima Dumont APRN.[employer] Work Phone: [facility] 11-14-2022 13:11-0500 Body temperature 98.71 [degF] Shaneka Lopez APRN.[employer] Work Phone: [facility] 11-14-2022 13:11-0500 Body weight 68.49 kg Shaneka Lopez APRN.[employer] Work Phone: [facility] 11-14-2022 13:11-0500 Diastolic blood pressure 82 mm[Hg] Shaneka Lopez APRN.[employer] Work Phone: [facility] 11-14-2022 13:11-0500 Heart rate 77 /min Shaneka Lopez APRN.[employer] Work Phone: [facility] 11-14-2022 13:11-0500 Respiratory rate 16 /min Shaneka Lopez APRN.[employer] Work Phone: [facility] 11-14-2022 13:11-0500 SaO2% (BldA) [Mass fraction] 98 % Shaneka Lopez APRN.[employer] Work Phone: [facility] 11-14-2022 13:11-0500 Systolic blood pressure 138 mm[Hg] Shaneka Lopez APRN.[employer] Work Phone: [facility] 11-02-2022 13:16-0500 Body temperature 100.6 [degF] Shaneka Lopez APRN.[employer] Work Phone: [facility] 11-02-2022 13:16-0500 Body weight 67.59 kg Shaneka Lopez APRN.[employer] Work Phone: [facility] 11-02-2022 13:16-0500 Diastolic blood pressure 84 mm[Hg] Shaneka Lopez APRN.[employer] Work Phone: [facility] 11-02-2022 13:16-0500 Heart rate 92 /min Shaneka Lopez APRN.[employer] Work Phone: [facility] 11-02-2022 13:16-0500 Respiratory rate 18 /min Shanekadae Lopez APRN.[employer] Work Phone: [facility] 11-02-2022 13:16-0500 SaO2% (BldA) [Mass fraction] 96 % Shaneka Lopez APRN.[employer] Work Phone: [facility] 11-02-2022 13:16-0500 Systolic blood pressure 132 mm[Hg] Shaneka Lopez APRN.[employer] Work Phone: [facility] 10-05-2022 10:25-0500 Body temperature 97.11 [degF] Cherise MAYS-C Work Phone: [facility] 10-05-2022 10:25-0500 Body weight 67.13 kg Cherise MAYS-C Work Phone: [facility] 10-05-2022 10:25-0500 Diastolic blood pressure 80 mm[Hg] Cherise MAYS-C Work Phone: [facility] 10-05-2022 10:25-0500 Heart rate 72 /min Cherise MAYS-C Work Phone: [facility] 10-05-2022 10:25-0500 Respiratory rate 16 /min Cherise Sifuentes PA-C Work Phone: [facility] 10-05-2022 10:25-0500 Systolic blood pressure 110 mm[Hg] Cherise Sifuentes PA-C Work Phone: [facility] 09-03-2022 14:42-0400 Body weight 67.59 kg Clifton Hung MD Work Phone: [facility] 09-03-2022 14:42-0400 Diastolic blood pressure 76 mm[Hg] Clifton Hung MD Work Phone: [facility] 09-03-2022 14:42-0400 Heart rate 84 /min Clifton Hung MD Work Phone: [facility] 09-03-2022 14:42-0400 SaO2% (BldA) [Mass fraction] 96 % Clifton Hung MD Work Phone: [facility] 09-03-2022 14:42-0400 Systolic blood pressure 120 mm[Hg] Clifton Hung MD Work Phone: [facility] 08-28-2022 10:22-0400 Body weight 66.68 kg Sima Dumont APRN.[employer] Work Phone: [facility] 08-28-2022 10:22-0400 Diastolic blood pressure 70 mm[Hg] Sima Dumont APRN.[employer] Work Phone: [facility] 08-28-2022 10:22-0400 Systolic blood pressure 98 mm[Hg] Sima Dumont APRN.[employer] Work Phone: [facility] 08-28-2022 08:23-0400 Body height 161 cm 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 APRN.[employer] Work Phone: [facility] 08-28-2022 08:23-0400 Body temperature 96.8 [degF] 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 APRN.[employer] Work Phone: [facility] 08-28-2022 08:23-0400 Body weight 67.13 kg 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 CONTROL SYSTEMS ENGINEER.[employer] Work Phone: [facility] 08-28-2022 08:23-0400 Diastolic blood pressure 76 mm[Hg] Julieth Russellenter CONTROL SYSTEMS ENGINEER.[employer] Work Phone: [facility] 08-28-2022 08:23-0400 Heart rate 92 /min Julieth Russellenter CONTROL SYSTEMS ENGINEER.[employer] Work Phone: [facility] 08-28-2022 08:23-0400 Systolic blood pressure 115 mm[Hg] Julieth Russellenter CONTROL SYSTEMS ENGINEER.[employer] Work Phone: [facility] 07-09-2022 07:50-0400 Body weight 68.04 kg Sima Dumont CONTROL SYSTEMS ENGINEER.[employer] Work Phone: [facility] 07-09-2022 07:50-0400 Diastolic blood pressure 68 mm[Hg] Sima Dumont CONTROL SYSTEMS ENGINEER.[employer] Work Phone: [facility] 07-09-2022 07:50-0400 Systolic blood pressure 118 mm[Hg] Sima Hamiltonie CONTROL SYSTEMS ENGINEER.[employer] Work Phone: [facility] 06-30-2022 12:34-0400 Body temperature 97.39 [degF] Martha Athy PA-C Work Phone: [facility] 06-30-2022 12:34-0400 Body weight 68.13 kg Martha Athy PA-C Work Phone: [facility] 06-30-2022 12:34-0400 Diastolic blood pressure 78 mm[Hg] Martha Athy PA-C Work Phone: [facility] 06-30-2022 12:34-0400 Heart rate 90 /min Martha Athy PA-C Work Phone: [facility] 06-30-2022 12:34-0400 Respiratory rate 18 /min Martha Athy PA-C Work Phone: [facility] 06-30-2022 12:34-0400 SaO2% (BldA) [Mass fraction] 99 % Martha Athy PA-C Work Phone: [facility] 06-30-2022 12:34-0400 Systolic blood pressure 124 mm[Hg] Martha MAYS-Marleny Work Phone: [facility] 02-25-2022 09:57-0400 Body temperature 97.39 [degF] Somerset Mariee CONTROL SYSTEMS ENGINEER.[employer] Work Phone: [facility] 02-25-2022 09:57-0400 Body weight 71.22 kg 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 CONTROL SYSTEMS ENGINEER.[employer] Work Phone: [facility] 02-25-2022 09:57-0400 Diastolic blood pressure 70 mm[Hg] 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 CONTROL SYSTEMS ENGINEER.[employer] Work Phone: [facility] 02-25-2022 09:57-0400 Heart rate 74 /min Somerset Mariee CONTROL SYSTEMS ENGINEER.[employer] Work Phone: [facility] 02-25-2022 09:57-0400 Systolic blood pressure 114 mm[Hg] Somerset Mariee CONTROL SYSTEMS ENGINEER.[employer] Work Phone: [facility] 07-22-2017 16:09-0400 Heart rate 60 /min [...] Heart rate 72 /min Blanca Paige RN [facility] Work Phone: 01-20-2017 10:34-0400 BMI [...] Date Encounter Type Care Provider Facility Start: 12-28-2023 Chart abstracting Clifton romero MD Work Phone: [facility] Procedures Date Procedure Procedure Detail Performing Clinician Start: 07-23-2023 Urnls dip stick/tablet rgnt auto w/o microscopy Sima Dumont CONTROL SYSTEMS ENGINEER.[employer] Work Phone: Start: 02-24-2023 End: 02-24-2023 Mammography 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 CONTROL SYSTEMS ENGINEER.[employer] Work Phone: Start: 11-25-2022 Ct abdomen & pelvis w/contrast material 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 CONTROL SYSTEMS ENGINEER.[employer] Work Phone: Start: 11-14-2022 STREP A MOLECULAR (POC) Shaneka Lopez CONTROL SYSTEMS ENGINEER.[employer] Work Phone: Start: 11-02-2022 COVID WITH FLUA+B, ROUTINE Shaneka Eder grahma CONTROL SYSTEMS ENGINEER.[employer] Work Phone: Start: 10-28-2022 GUILLERMINA DIAG W ANGELA LEFT 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 CONTROL SYSTEMS ENGINEER.[employer] Work Phone: Start: 09-09-2022 Us abdominal real time w/image limited Clifton Hung MD Work Phone: Start: 09-03-2022 INFLUENZA SEASONAL QUADRIVALENT HIGH DOSE AGE 65+ Clifton Hung MD Work Phone: Start: 07-09-2022 BACTERIAL VAGINOSIS AMPLIFICATION Sima Dumont APRN.[employer] Work Phone: Start: 07-09-2022 Iadna trichomonas vaginalis amplified probe tech Sima Dumont APRN.[employer] Work Phone: Start: 07-09-2022 Urnls dip stick/tablet rgnt auto w/o microscopy Sima Dumont APRN.[facility] Work Phone: Start: 02-23-2022 End: 02-23-2022 Screening [...] Ron Gomez MD Start: 04-23-2017 End: 04-23-2017 MMM Ron Gomez MD Start: 04-23-2017 End: 04-23-2017 Dietary management education, guidance, and counseling Nancy Rodriguez RN Start: 04-23-2017 End: 04-23-2017 Follow Up Appt 3 months Ron Gomez MD Start: 04-23-2017 End: 04-23-2017 MMM Ron Gomez MD Start: 03-31-2017 End: 04-21-2017 Echocardiography Ron Gomez MD Start: 03-31-2017 End: 04-21-2017 Nuclear stress test -Lexahmetan Ron Gomez MD Start: 03-31-2017 End: 04-21-2017 Echocardiography Ron Gomez MD Start: 03-31-2017 End: 04-21-2017 Nuclear stress test -Dian Ron Gomez MD Start: 02-19-2017 End: 04-21-2017 Lipid [...] Activity Detail Author Start: 08-09-2028 Colonoscopy COLONOSCOPY [facility] Start: 08-09-2028 COLORECTAL CANCER SCREENING COLORECTAL CANCER SCREENING [facility] Start: 08-09-2028 Screening for malignant neoplasm of colon [facility] Start: 11-23-2024 Annual PCP Team Chronic Disease Visit Annual PCP Team Chronic Disease Visit [facility] Start: 10-08-2024 Annual PCP Team Chronic Disease Visit Annual PCP Team Chronic Disease Visit [facility] Start: 09-29-2024 Hepatitis B surface antibody level LDL Cholesterol [facility] Start: 07-23-2024 BP Controlled (<130/80) BP Controlled (<130/80) [facility] Start: 05-23-2024 Glaucoma screening Dilated Retinal Exam [facility] Start: 05-23-2024 Hepatitis C antibody, confirmatory test DILATED RETINAL EXAM [facility] Start: 04-08-2024 3 comp foot exam completed DIABETIC FOOT EXAM [facility] Start: 04-08-2024 ANNUAL PCP TEAM CHRONIC DISEASE VISIT ANNUAL PCP TEAM CHRONIC DISEASE VISIT [facility] Start: 04-08-2024 BP CONTROLLED (<130/80) BP CONTROLLED (<130/80) [facility] Start: 04-08-2024 Diabetic foot examination Diabetic Foot Exam [facility] Start: 04-02-2024 Hepatitis B screening URINE ALBUMIN:CREATININE RATIO [facility] Start: 04-02-2024 Hepatitis B surface antibody level LDL CHOLESTEROL [facility] Start: 03-29-2024 Hemoglobin A1c measurement HbA1C [facility] Start: 03-29-2024 Hemoglobin A1c/Hemoglobin.total in Blood HbA1C [facility] Start: 02-25-2024 Mammography [facility] Start: 02-25-2024 Screening for malignant neoplasm of breast Mammogram Screening [facility] Start: 02-24-2024 Urine microalbumin profile [facility] Start: 02-10-2024 ANNUAL PCP TEAM CHRONIC DISEASE VISIT ANNUAL PCP TEAM CHRONIC DISEASE VISIT [facility] Start: 02-10-2024 BP CONTROLLED (<130/80) BP CONTROLLED (<130/80) [facility] Start: 02-06-2024 BP CONTROLLED (<130/80) BP CONTROLLED (<130/80) [facility] Start: 12-09-2023 BP CONTROLLED (<130/80) BP CONTROLLED (<130/80) [facility] Start: 11-08-2023 Advance Directive Discussion Advance Directive Discussion [facility] Start: 11-08-2023 Depression Assessment Depression Assessment [facility] Start: 10-05-2023 ANNUAL PCP TEAM CHRONIC DISEASE VISIT ANNUAL PCP TEAM CHRONIC DISEASE VISIT [facility] Start: 10-03-2023 Hemoglobin A1c/Hemoglobin.total in Blood HBA1C [facility] Start: 09-24-2023 End: 11-24-2023 Hemoglobin A1c in Blood HGB A1C Lab Routine Controlled type 2 diabetes mellitus without complication, without long-term current use of insulin (HCC) Expected: 09/24/2023, Expires: 11/24/2023 [facility] Work Phone: Immunizations Immunization Date Immunization Notes Care Provider Javier lu 10-26-2023 influenza (HD-IIV4) vaccine, age 65+ yr, high dose, quadrivalent, PF (FLUZONE HIGH-DOSE) Clifton Hung MD Work Phone: [facility] 10-05-2022 pneumococcal polysaccharide vaccine, 23 valent Cherise Sifuentes PA-C Work Phone: [facility] 09-18-2022 COVID-19 booster vaccine, age 12+ yr, bivalent (MODERNA) Cherise Sifuentes PA-C Work Phone: [facility] 09-03-2022 influenza, high-dose , quadrivalent vaccine (FLUZONE HIGH DOSE QUADRIVALENT) Clifton Hung MD Work Phone: [facility] 09-01-2021 influenza, injectabl e, quadrivalent, contains preservative Cherise MAYS-C Work Phone: [facility] 12-20-2020 COVID-19 vaccine, fu ll dose (MODERNA) Cherise Sifuentes PA-C Work Phone: [facility] 11-19-2020 COVID-19 vaccine, fu ll dose (MODERNA) Cherise Sifuentes PA-C Work Phone: [facility] 10-12-2020 zoster vaccine recombinant Cherise Sifuentes PA-C Work Phone: [facility] 05-12-2020 zoster vaccine recombinant Cherise Sifuentes PA-C Work Phone: [facility] 04-12-2020 zoster vaccine recombinant Cherise Sifuentes PA-C Work Phone: [facility] 11-19-2019 COVID-19 vaccine, fu ll dose (MODERNA) Cherise MAYS-C Work Phone: [facility] 09-07-2017 influenza, seasonal, injectable Cherise MAYS-C Work Phone: [facility] 06-28-2017 pneumococcal polysaccharide vaccine, 23 valent Cherise MAYS-C Work Phone: [facility] 09-04-2016 influenza, seasonal, injectable Cherise MAYS-C Work Phone: [facility] 01-16-2016 pneumococcal conjuga te vaccine, 13 valent Cherise MAYS-C Work Phone: [facility] Work Phone: 09-19-2014 influenza, seasonal, injectable Cherise MAYS-C Work Phone: [facility] 02-23-2014 tetanus toxoid, redu andres diphtheria toxoid, and acellular pertussis vaccine, adsorbed Cherise Sifuentes PA-C Work Phone: [facility] 10-20-2013 influenza virus vacc ine, unspecified formulation Cherise Sifuentes PA-C Work Phone: [facility] 08-08-2009 pneumococcal polysaccharide vaccine, 23 valent Cherise Sifuentes PA-C Work Phone: [facility] Work Phone: Payers Date Payer Category Payer Medicare HU[employer] MEDICARE HU[employer] MEDICARE PPO [id number] 2022-Present [phone] [address] [address] [place] [address] PPO [id number] 2022 Medicare [id number] 2009 Unknown [employer] PPO OOS [id number] 2009-Present [phone] [address] [place] [address] PPO [id number] 2009 Unknown [employer] PPO OOS [id number] 2009-Present [phone] [address] [place] [address] PPO [id number] 1957 Unknown [id number] Social History Date Type Detail Facility Start: 07-21-2013 End: 06-30-2022 Tobacco smoking status NHIS Ex-smoker [facility] End: 11-08-1994 History of tobacco use Current smoker [facility] End: 11-08-1994 History of tobacco use Cigarette Smoker [facility] Start: 07-21-2013 End: 04-08-2023 Cigarettes smoked current (pack per day) - Reported 1.5 [facility] Start: 07-21-2013 End: 06-30-2022 Tobacco use and exposure Smokeless tobacco non-user [facility] Start: 10-22-2021 End: 09-09-2023 Alcohol intake Current non-drinker of alcohol (finding) [facility] Start: 09-25-2020 End: 09-29-2022 History SDOH Alcohol Frequency 1 [facility] Start: 09-25-2020 History SDOH Alcohol Std Drinks 98 [facility] Start: 05-20-2020 End: 09-25-2020 History SDOH Social Connections Phone 4 [facility] Start: 04-08-2020 End: 09-29-2022 History SDOH Social Connections Get Together 2 [facility] Start: 04-08-2020 End: 09-29-2022 History SDOH Social Connections Nondenominational 3 [facility] Start: 04-08-2020 End: 09-29-2022 History SDOH Physical Activity DPW 0 [facility] Start: 04-07-2020 Education 21 [facility] Start: 07-21-2013 End: 06-30-2022 Tobacco Comment smoked 3 years in mid 90s [facility] ic Start: 1955 Sex Assigned At Female C [facility] Start: 02-13-2022 End: 10-05-2022 Exposure to SARS-CoV-2 (event) Not sure [facility] Start: 09-29-2022 History SDOH Financial 5 [facility] Start: 09-28-2022 End: 04-08-2023 Social connection and isolation panel [facility] Do you belong to any clubs or organizations such as anglican groups, unions, fraternal or athletic groups, or school groups? Yes [facility] Are you now , , , , never or living with a partner? [facility] How often to you hav e a drink containing alcohol? Never [facility] How many standard dr inks containing alcohol do you have on a typical day? Patient does not drink [facility] Do you feel stress - tense, restless, nervous, or anxious, or unable to sleep at night because your mind is troubled all the time - these days [OSQ] Not at all [facility] (I/We) worried wheth er (my/our) food would run out before (I/we) got money to buy more. Never true [facility] In the past 12 month s, was there a time when you were not able to pay the mortgage or rent on time? No [facility] Start: 01-16-2019 Gender identity Identifies as female gender (finding) [facility] Start: 01-16-2019 Sexual orientation Heterosexual (vu lo) [facility] How hard is it for y ou to pay for the very basics like food, housing, medical care, and heating Not very hard [facility] Do you feel stress - tense, restless, nervous, or anxious, or unable to sleep at night because your mind is troubled all the time - these days [OSQ] To some extent [facility] Clinical Notes 02-10-2022 to 12-28-2023 Latrice Dunn LPN - 12/28/2023 7:26 AM Latrice Workman LPN - 12/10/2023 6:57 AM Francine Estrada APRN.[employer] - 10/08/2023 9:15 AM Latrice Workman LPN - 09/15/2023 8:30 AM EST Note Date & Type Note Facility 12-28-2023 Note HNO ID: [id number] Author: LATRICE DUNN LPN Service: ? Author Type: LICENSED NURSE Type: Progress Notes Filed: 12/28/2023 07:26 Note Text: Scan on 12/28/2023 3:13 AM by Deyvi Yadav PA-C: Consultation - Emergency Medicine [facility] 12-28-2023 History of Present illness Narrative Scan on 12/28/2023 3:13 AM by Deyvi Yadav PA-C: Consultation - Emergency Medicine documented in this encounter [facility] 12-10-2023 Note HNO ID: [id number] Author: LATRICE DUNN LPN Service: ? Author Type: LICENSED NURSE Type: Progress Notes Filed: 12/10/2023 07:02 Note Text: Scan on 12/10/2023 4:35 AM by Deyvi Yadav PA-C: Miscellaneous Lab [facility] 12-10-2023 History of Present illness Narrative Scan on 12/10/2023 4:35 AM by Deyvi Yadav PA-C: Miscellaneous Lab documented in this encounter [facility] 11-23-2023 Note HNO ID: [id number] Author: FRANCINE MADRID APRN.ELIZABETH Service: ? 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 CABG Diabetes Father Diabetes Paternal Grandmother Diabetes Maternal Grandfather other (Lung cancer) Brother other (suicide) Son may of been depression Patient Allergies ALLERGIES Allergen Reactions Brilinta [Ticagrelo* Shortness of Breath Crestor [Rosuvastat* Myalgia Keflex [Cephalexin] Other: See Comments facial flushing Lipitor [Atorvastat* Other: See Comm (more content not included)... [facility] 10-22-2023 Note HNO ID: [id number] Author: Francine Madrid APRN.[employer] Service: ? 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 CABG Diabetes Father Diabetes Paternal Grandmother Diabetes Maternal Grandfather other (Lung cancer) Brother other (suicide) Son may of been depression Patient Allergies ALLERGIES Allergen Reactions Brilinta [Ticagrelo* Shortness of Breath Crestor [Rosuvastat* Myalgia Keflex [Cephalexin] Other: See Comments facial flushing Lipitor [Atorvastat* Other: See Comments myalgia Lovastatin Other: See Comments myalgia Everett [Hydrocodone-* Itching Current Medications C (more content not included)... [facility] 10-08-2023 Note HNO ID: [id number] Author: Francine Madrid APRN.[employer] Service: ? 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 Ortiz [place] RLS (restless legs syndrome) 02/22/[address] [...] Date 2D ECHO (EXEP) 06/30/2017 EF=65%, trivial AZ, TI and 1+ PI Unchanged from 04/2017 2D ECHO (EXEP) 05/14/2021 EF=60%, 1+ TI, trival AZ, AI, PI 2D ECHO (EXEP) 09/16/2021 EF=60%, [...] cancer) Mother Coronary Artery Disease Father 25 AZ @ 25. CABG Diabetes Father Diabetes Paternal Grandmother Diabetes Maternal Grandfather other (Lung cancer) Brother other (suicide) Son may of been depression Patient Allergies ALLERGIES Allergen Reactions Brilinta [Ticagrelo* Shortness of Breath Crestor [Rosuvastat* Myalgia Keflex [Cephalexin] Other: See Comments facial flushing Lipitor [Atorvastat* Other: See Comments myalgia Lovastatin Other: See Comments myalgia Everett [Hydrocodone-* Itching Current Medications Curren (more content not included)... 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 Ortiz [place] RLS (restless legs syndrome) 02/22/[address] [...] Date 2D ECHO (EXEP) 06/30/2017 EF=65%, trivial AZ, TI and 1+ PI Unchanged from 04/2017 2D ECHO (EXEP) 05/14/2021 EF=60%, 1+ TI, trival AZ, AI, PI 2D ECHO (EXEP) 09/16/2021 EF=60%, [...] cancer) Mother Coronary Artery Disease Father 25 AZ @ 25. CABG Diabetes Father Diabetes Paternal Grandmother Diabetes Maternal Grandfather other (Lung cancer) Brother other (suicide) Son may of been depression Patient Allergies ALLERGIES Allergen Reactions Brilinta [Ticagrelo* Shortness of Breath Crestor [Rosuvastat* Myalgia Keflex [Cephalexin] Other: See Comments facial flushing Lipitor [Atorvastat* Other: See Comments myalgia Lovastatin Other: See Comments myalgia Everett [Hydrocodone-* Itching Current Medications Current Outpatient Medications on File Prior to Visit Medication Sig Calcium Citrate-Vitamin D3 (CITRACAL+D) 315 mg-6.25 mcg (250 unit) tab Take 2 tablets by mouth once daily. dxkwct-pkpifkse-rsvbnyn (CREON) 12,000-38,000 -60,000 unit delayed release capsule [...] 327.23, ICD10: G47.33 -Wears CPAP Francine Madrid APRN.[employer] documented in this encounter [facility] 09-15-2023 Note HNO ID: [id number] Author: Latrice Dunn LPN Service: ? Author Type: ? Type: Progress Notes Filed: 09/15/2023 11:00 AM Note Text: Scan on 09/14/2023 5:34 PM by ProviderDeyvi PA-C: Consultation - Ophthalmology [facility] 09-15-2023 History of Present illness Narrative Scan on 09/14/2023 5:34 PM by ProviderDeyvi PA-C: Consultation - Ophthalmology documented in this encounter [facility] 09-09-2023 Note HNO ID: [id number] Author: Clifton Mckeon APRN.ELIZABETH Service: ? Author Type: Nurse Practitioner Type: Progress Notes Filed: 09/09/2023 3:47 PM Note Text: Subjective HPI Nontoxic-appearing female presents urgent care chief complaint cough sore throat headache. Duration of symptoms 2 days. Associated symptoms listed above. Most prominent symptom today is sore throat. States she was in contact with individuals at her [facility] who had the flu and COVID. 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 lipase-prot (more content not included)... [facility] 08-31-2023 Note HNO ID: [id number] Author: Natalie Presley Ma Service: ? Author Type: ? Type: Progress Notes Filed: 08/31/2023 8:41 PM Note Text: Cardiology OV. Scan on 08/30/2023 2:05 PM by ProviderDeyvi PA-C: Consultation - Cardiology [facility] 08-31-2023 History of Present illness Narrative Cardiology OV. Scan on 08/30/2023 2:05 PM by ProviderDeyvi PAJosephC: Consultation - Cardiology documented in this encounter [facility] 08-27-2023 Note HNO ID: [id number] Author: 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 APRN.[employer] Service: ? Author Type: Nurse Practitioner Type: Progress Notes Filed: 08/27/2023 10:49 AM Note Text: Chief Complaint Patient presents with: Established Patient: 6 month exam HPI: Luz Marina Avila is a 68 year old female who presents here today for follow up DCIS. Per Dr. 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 APRN.[facility] 08-02-2023 Note HNO ID: [id number] Author: Latrice Dunn LPN Service: ? Author Type: ? Type: Progress Notes Filed: 08/02/2023 8:50 AM Note Text: Scan on 07/30/2023 6:04 PM by ProviderDeyvi PA-C: Consultation - Ophthalmology [facility] 08-02-2023 History of Present illness Narrative Scan on 07/30/2023 6:04 PM by ProviderDeyvi PA-C: Consultation - Ophthalmology documented in this encounter [facility] 07-23-2023 Note HNO ID: [id number] Author: Sima Dumont APRN.[employer] Service: ? Author Type: Nurse Practitioner Type: Progress Notes Filed: 07/23/2023 12:28 PM Note Text: Brass Bobbin Winder offered: Patient declines. 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 CABG Diabetes Father Diabetes Paternal Grandmother Diabetes Maternal Grandfather other (Lung cancer) Brother other (suicide) Son may of been depression Social History Tobacco (more content not included)... [facility] 07-23-2023 Instructions Sima Dumont, TERRA.[employer] - 07/23/2023 11:44 AM EDT Silicone based [...] scratching at night. documented in this encounter [facility] 07-23-2023 History of Present illness Narrative Brass Bobbin Winder offered: Patient declines. 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) 01/09/[address] 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) 10/22/2016 De Quervain's tenosynovitis, left 07/31/2019 Diabetic eye exam ([facility]) 01/16/2016 Lat done: 12/03/2017 No retinopathy Ductal [...] Date 2D ECHO (EXEP) 06/30/2017 EF=65%, trivial AZ, TI and 1+ PI Unchanged from 04/2017 2D ECHO (EXEP) 05/14/2021 EF=60%, 1+ TI, trival AZ, AI, PI 2D ECHO (EXEP) 09/16/2021 EF=60%, [...] cancer) Mother Coronary Artery Disease Father 25 AZ @ 25. CABG Diabetes Father Diabetes Paternal [...] Take 2 tablets by mouth once daily. ysqvef-wokcwsfw-zyxcmbs (CREON) 12,000-38,000 -60,000 unit delayed release capsule [...] external genitalia normal, normal Bartholin's glands, urethra, [place]'s glands, no vulvar lesions, small amount thick [...] 4 - Moderate documented in this encounter [facility] 06-15-2023 Note HNO ID: [id number] Author: Latrice Dunn LPN Service: ? Author Type: ? Type: Progress Notes Filed: 06/15/2023 8:30 PM Note Text: Scan on 06/14/2023 2:02 PM by Provider, External, PA-C: Consultation - Ophthalmology [facility] 06-15-2023 History of Present illness Narrative Scan on 06/14/2023 2:02 PM by ProviderDeyvi PA-C: Consultation - Ophthalmology documented in this encounter [facility] 06-07-2023 Note HNO ID: [id number] Author: Tahmina Lopez MA Service: ? Author Type: Supervisory Training Specialist Type: Progress Notes Filed: 06/12/2023 8:09 PM Note Text: Scan on 06/07/2023 8:43 AM by ProviderDeyvi PA-C: Consultation - Ophthalmology HM updated. Tahmina Lopez MA [facility] 06-07-2023 History of Present illness Narrative Scan on 06/07/2023 8:43 AM by Deyvi Yadav PA-C: Consultation - Ophthalmology HM updated. Tahmina Lopez MA documented in this encounter [facility] 04-09-2023 Note HNO ID: [id number] Author: Latrice Dunn LPN Service: ? Author Type: ? Type: Progress Notes Filed: 04/09/2023 11:54 AM Note Text: Scan on 04/08/2023 4:51 PM by External KELLY Yadav: Consultation - Ophthalmology [facility] 04-09-2023 History of Present illness Narrative Scan on 04/08/2023 4:51 PM by External KELLY Yadav: Consultation - Ophthalmology documented in this encounter [facility] 04-09-2023 Miscellaneous Notes See update from pt. Natalie Presley Ma documented in this encounter [facility] 04-08-2023 Note HNO ID: [id number] Author: Clifton Hung MD Service: ? 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 CABG Diabetes Father Diabetes Paternal [...] Marina's advanced dir (more content not included)... [facility] 04-08-2023 Instructions Clifton Hung MD - 04/08/2023 2:04 PM EDT Please get labs done on or after 09/24/2023 prior to your next visit. documented in this encounter [facility] 04-08-2023 History of Present illness Narrative Images from the original note were not included. 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) [...] Date 2D ECHO (EXEP) 06/30/2017 EF=65%, trivial AZ, TI and 1+ PI Unchanged from 04/2017 2D ECHO (EXEP) 05/14/2021 EF=60%, 1+ TI, trival AZ, AI, PI 2D ECHO (EXEP) 09/16/2021 EF=60%, no significant valve disease BREAST LUMPECTOMY HX Left 04/08/2021 BUNIONECTOMY, [place]-TYPE 2010 left great toe BX BREAST W/DEVICE 1ST LESION STEREOTACTIC GUID Left 03/25/2021 DELIVERY ONLY CHOLECYSTECTOMY 2004 Cholecystectomy COLONOSCOPY 08/07/2015 no polyps, recheck 3-5 yrs COLONOSCOPY & POLYPECTOMY 10/12, 10/13 Dr Avial; hyperplastic polyps COLONOSCOPY FLX DX W/COLLJ SPEC [...] ABDOMINAL HYSTERECT W/WO RMVL TUBE OVARY 1995 LDEA for benign fibroid, ovaries intact ALLERGIES: Brilinta [Ticagrelor], Crestor [Rosuvastatin], Keflex [Cephalexin], Lipitor [Atorvastatin], Lovastatin, and Everett [Hydrocodone-Acetaminophen] Medications reviewed: Yes FAMILY HISTORY Problem Relation Age of Onset other (Pancreatic cancer) Mother Coronary Artery Disease Father 25 AZ @ 25. CABG Diabetes Father Diabetes Paternal [...] time. List of current specialists seen: Dr. Alacntar (Gastro) Dr. Zarate (Cardio) Dr. 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 CABG Diabetes Father Diabetes Paternal Grandmother Diabetes Maternal Grandfather other (Lung cancer) Brother other (suicide) Son may of been depression Patient Allergies ALLERGIES Allergen Reactions Brilinta [Ticagrelo* Shortness of Breath Crestor [Rosuvastat* Myalgia Keflex [Cephalexin] Other: See Comments facial flushing Lipitor [Atorvastat* Other: See Comments myalgia Lovastatin Other: See Comments myalgia Everett [Hydrocodone-* Itching Current Medications Current Outpatient Medications [...] Lymph 1.00 - 4.00 k/uL 1.43 1.36 [place]% % 9.4 8.0 Abs [place] <0.87 k/uL 0.45 0.40 Eosin% % 1.3 [...] Negative Ketones, Urine Trace, Negative Negative Specific [place], Ur 1.005 - 1.030 1.017 Hemoglobin/Blood,Ur Negative, [...] diet of 1000 mg/day for under 50, 3306-1552 mg/day for 50+ - Follow up for [...] diet and regular exercise 6. Atherosclerosis of [place] coronary artery of [place] heart with stable angina pectoris (HCC) - [...] which included preparing to see the patient, wlbq-lg-ersb patient care, completing clinical documentation, performing a medically appropriate examination, counseling and educating the patient/family/caregiver and ordering medications, tests, or procedures. Clifton Hung MD documented in this encounter [facility] 04-02-2023 Note HNO ID: [id number] Author: Latrice Dunn LPN Service: ? Author Type: ? Type: Progress Notes Filed: 04/02/2023 3:04 PM Note Text: Scan on 04/01/2023 3:04 PM by External Provider, PAJosephC: Consultation - GI [facility] 02-26-2023 Note HNO ID: [id number] Author: 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 APRN.ELIZABETH Service: ? Author Type: Nurse Practitioner Type: Progress Notes Filed: 02/26/2023 10:18 AM Note Text: Chief Complaint Patient presents with: Established Patient HPI: Luz Marina Avila is a 67 year old female who presents here today for follow up DCIS. Per Dr. 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 APRN.[facility] 02-26-2023 History of Present illness Narrative Chief Complaint Patient presents with: Established Patient HPI: Luz Marina Avila is a 67 year old female who presents here today for follow up DCIS. Per Dr. Georges previous note: H/o xlh-gpvqsmp-deatzpewy diabetes mellitus, hypertension, ASCAD, and TIA who [...] breast lumpectomy for DCIS on 04/08/2021 at [facility] Pathology (from [facility]) reveals - ductal carcinoma in situ...,size of DCIS - 1.0 x 0.4 cm...,architectural type - cribriform..., nuclear grade 1-2..., necrosis - present central (expansive comedo necrosis)..., biopsy cavity is 0.5 cm from closest anterior margin (which is skin)..., ER >95%, OK >95% Postoperative course is unremarkable with no [...] pain, n/v, h/o IBS, occ. 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 Author Type: [employer] Assembler Type: Progress Notes Filed: 02/24/2023 9:17 AM [...] RT Eugene(R) February 24, 2023 9:16 AM [facility] 02-24-2023 History of Present illness Narrative [...] 2023 9:16 AM documented in this encounter [facility] 02-22-2023 Note HNO ID: [id number] Author: Latrice Dunn LPN Service: ? Author Type: ? Type: Progress Notes Filed: 02/22/2023 3:01 PM Note Text: Scan on 02/22/2023 12:59 PM by External Provider: Consultation - Neurology [facility] 02-22-2023 History of Present illness Narrative Scan on 02/22/2023 12:59 PM by External Provider: Consultation - Neurology documented in this encounter [facility] 02-19-2023 Note HNO ID: [id number] Author: Latrice Dunn LPN Service: ? Author Type: ? Type: Progress Notes Filed: 02/21/2023 2:20 PM Note Text: Scan on 02/18/2023 12:54 PM by External Provider: Consultation - Cardiology [facility] 02-19-2023 History of Present illness Narrative Scan on 02/18/2023 12:54 PM by External Provider: Consultation - Cardiology documented in this encounter [facility] 02-09-2023 Note HNO ID: [id number] Author: Cherise Sifuentes PA-C Service: ? Author Type: Physician Full Service Supervisor Type: Progress Notes Filed: 02/09/2023 1:27 PM Note Text: Chief Complaint Patient presents with: Cough: congestion HPI Luz Marina Avila is a 67 year old female who presents here today for Above Complaints.. Patient has had URI symptoms since 01/31/23. Was seen in [facility] care on 02/05. 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) 01/09/[address] 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) 10/22/2016 De Quervain's tenosynovitis, left 07/31/2019 Diabetic eye exam ([facility]) 01/16/2016 Lat done: 12/03/2017 No retinopathy Ductal [...] Date 2D ECHO (EXEP) 06/30/2017 EF=65%, trivial AZ, TI and 1+ PI Unchanged from 04/2017 2D ECHO (EXEP) 05/14/2021 EF=60%, 1+ TI, trival [place], AI, PI 2D ECHO (EXEP) 09/16/2021 EF=60%, [...] cancer) Mother Coronary Artery Disease Father 25 [place] @ 25. CABG Diabetes Father Diabetes Paternal Grandmother Diabetes Maternal Grandfather other (Lung cancer) Brother other (suicide) Son may of been depression Patient Allergies ALLERGIES Allergen Reactions Brilinta [Ticagrelo* Shortness of Breath Crestor [Rosuvastat* Myalgia Keflex [Cephalexin] Other: See Comments facial flushing Lipitor [Atorvastat* Other: See Comments myalgia Lovastatin Other: See Comments myalgia Everett [Hydrocodone-* Itching Current Medications Current Outpatient Medications on File Prior to Visit Medication Sig tamoxifen (NOLVADEX) 20 mg tablet Take 1 tablet (20 mg) by mouth once daily. benzonatate (TESSALON PERLE) 100 mg capsule Take 2 (more content not included)... [facility] 02-09-2023 History of Present illness Narrative Chief Complaint Patient presents with: Cough: congestion HPI Luz Marina Avila is a 67 year old female who presents here today for Above Complaints.. Patient has had URI symptoms since 01/31/23. Was seen in [facility] care on 02/05. 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 CABG Diabetes Father Diabetes Paternal Grandmother Diabetes Maternal Grandfather other (Lung cancer) Brother other (suicide) Son may of been depression Patient Allergies ALLERGIES Allergen Reactions Brilinta [Ticagrelo* Shortness of Breath Crestor [Rosuvastat* Myalgia Keflex [Cephalexin] Other: See Comments facial flushing Lipitor [Atorvastat* Other: See Comments myalgia Lovastatin Other: See Comments myalgia Everett [Hydrocodone-* Itching Current Medications Current Outpatient Medications [...] Cherise Sifuentes PA-C documented in this encounter [facility] 02-08-2023 Miscellaneous Notes Patient has been identified by name and date of : Yes Requested Prescriptions Pending Prescriptions Disp Refills tamoxifen (NOLVADEX) 20 mg tablet 90 tablet 3 Sig: Take 1 tablet (20 mg) by mouth once daily. RX INSTRUCTIONS: Patient aware RX will be sent to pharmacy. No need to notify patient. Monique Dailey LPN documented in this encounter [facility] 02-05-2023 Note HNO ID: [id number] Author: Lori Barriga APRN.FOREST PRODUCTS GATHERER Service: ? Author Type: Nurse Practitioner Type: Progress Notes Filed: 02/05/2023 9:58 AM Note Text: Subjective The history is provided by the patient. No neuropsychologist was used. HPI Luz Marina Avila is a 67 year old female who presents today for CC of cough and congestion, this started in past 5 days. Congestion is more in chest. 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) 10/22/2016 De Quervain's tenosynovitis, left 07/31/2019 Diabetic [...] #2 diagonal Scalp itch Seasonal allergies Dr Pomap Vitamin D deficiency 2013 Well adult exam 01/16/2016 Last done: 09/08/2018 I have confirmed and edited as necessary, the [facility] Review of Systems Constitutional: Negative for [...] detail warranting prompt ER evaluation. Lori Barriga APRN.FOREST PRODUCTS GATHERER [facility] 02-05-2023 History of Present illness Narrative Subjective The history is provided by the patient. No neuropsychologist was used. HPI Luz Marina Avila is a 67 year old female who presents today for CC of cough and congestion, this started in past 5 days. Congestion is more in chest. 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 documented in this encounter [facility] 12-17-2022 Miscellaneous Notes Spoke with pt. Informed DCIS/L breast lumpectomy. No lymph nodes were removed. Ok to have IV in L arm. Pt. Voiced understanding. Monique Dailey LPN Pt. has a h/o DCIS/L breast lumpectomy. No lymph nodes were removed. Ok to have IV in L arm. 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 APRN.CNP Patient is having surgery on her left wrist. She was informed by ortho that she was to get permission from Julieth to see if she was able to have IV, tourniquet, etc in her left arm due to breast cancer. Please advise patient. documented in this encounter [facility] 12-11-2022 Miscellaneous Notes Noted. documented in this encounter [facility] 12-11-2022 Miscellaneous Notes Please see pt's [employer] message,pt stated that Flagyl was not sent to her pharmacy. See pended order below and advise. Ernestine Ayala LPN documented in this encounter [facility] 12-09-2022 Instructions Sima Dumont APRN.ELIZABETH - [...] scratching at night. documented in this encounter [facility] 12-09-2022 History of Present illness Narrative Brass Bobbin Winder offered: Patient declines. Luz Marina Avila is a 67 year old female who presents for onset of vaginal discharge, burning and mild itching 2 week ago. Treated with Monistat 7. Now has vaginal discharge only. Treated for COVID with Paxlovid around [place]yl[place] and read that yeast infection is a [...] external genitalia normal, normal Bartholin's glands, urethra, Chefornak's glands, no vulvar lesions, cervix surgically absent, [...] which included preparing to see the patient, yzeg-tt-cbdx patient care, completing clinical documentation, obtaining and/or reviewing separately obtained history, performing a medically appropriate examination, counseling and educating the patient/family/caregiver, and ordering medications, tests, or procedures. documented in this encounter [facility] 11-25-2022 Miscellaneous Notes Patient notified. Suki Ambrocio LPN Please inform pt. that her CT is stable. No new findings. Follow up as scheduled. Thank you. 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) 01/16/2016 Lat done: 12/03/2017 No retinopathy Ductal [...] Date 2D ECHO (EXEP) 06/30/2017 EF=65%, trivial AZ, TI and 1+ PI Unchanged from 04/2017 2D ECHO (EXEP) 05/14/2021 EF=60%, 1+ TI, trival [place], AI, PI 2D ECHO (EXEP) 09/16/2021 EF=60%, [...] [Rosuvastatin], Keflex [Cephalexin], Lipitor [Atorvastatin], Lovastatin, and Everett [Hydrocodone-Acetaminophen] MEDICATIONS ezetimibe (ZETIA) 10 mg tablet [...] cancer) Mother Coronary Artery Disease Father 25 AZ @ 25. CABG Diabetes Father Diabetes Paternal [...] Patient agreeable to treatment plan. Shaneka Lopez APRN.FOREST PRODUCTS GATHERER documented in this encounter [facility] 11-11-2022 Instructions Matthew Joaquin - 11/11/2022 [...] (or decreased sensation in your feet) a vacuum applicator operator should always cut your toenails. Be Careful [...] Go to your health care provider or vacuum applicator operator to treat these conditions. 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 CABG Diabetes Father Diabetes Paternal [...] Objective: Patient presents to clinic ambulating in sneaker Constitutional: Pt is a well developed 67 [...] to L hallux. documented in this encounter [facility] 11-03-2022 Instructions Cherise Sifuentes PA-C - 11/03/2022 2:23 PM EST FACT SHEET FOR PATIENTS, PARENTS, AND CAREGIVERS EMERGENCY USE AUTHORIZATION (EUA) OF PAXLOVID FOR CORONAVIRUS DISEASE 2019 (COVID-19) You are being given this Fact Sheet because your healthcare provider believes it is necessary to provide you with PAXLOVID for the treatment of yngc-xo-vmktpmjv coronavirus disease (COVID-19) caused by the SARS-CoV-2 [...] virus. COVID-19 illnesses have ranged from very bqwt-tl-xxjzrb, including illness resulting in . While information [...] is an investigational medicine used to treat zdhd-tq-kktgtlga COVID-19 in adults and children [12 years [...] of using PAXLOVID to treat people with zqwe-ng-yvdsiruc COVID-19. The FDA has authorized the emergency use of PAXLOVID for the treatment of adhi-ii-wefeuaia COVID-19 in adults and children [12 years [...] the medicines you take, including prescription and vxuw-fab-vmvrdtd medicines, vitamins, and herbal supplements. Some medicines [...] (remdesivir) is FDA-approved for the treatment of mbjh-ex-vlqcddbi COVID-19 in certain adults and children. Talk with your doctor to see if Veklury is appropriate for you. Like PAXLOVID, FDA may also allow for the emergency use of other medicines to treat people with COVID-19. Go to https://www.fda.gov/emergency-prep aredness-andresponse/twc-fqaiq-awx gsddvbk-hjb-bgfdvu-framework/emerg iqyp-job-tbdwfkribtyax for information on the emergency use of [...] if I am or ? There is anodic operator treating women or mothers with PAXLOVID. For [...] not go away. Report side effects to [employer] at www.fda.gov/medeWellness Corporationtch or call 9-090-YFB1116 or you can report side effects to [employer]. at the contact information provided below. Website Fax number Telephone number www.[employer] How should I store PAXLOVID? Store PAXLOVID [...] (EUA). The EUA is supported by a [place] of Health and Human Service (HHS) declaration that circumstances exist to justify the emergency use of drugs and biological products during the COVID-19 pandemic. PAXLOVID for the treatment of lrlc-ql-uacixlys COVID-19 in adults and children [12 years [...] telephone number provided below. Website Telephone number www.ETCHT97gkbjKp.[employer] (8-323-M56-SSIR) You can also go to www.[employer] or call for more information. Pfizer Distributed by [employer] [place] [address] [id number] Revised: 23 January 2022 documented in this encounter [facility] 11-03-2022 Miscellaneous Notes Called patient to discuss: Nirmatrelvir/Ritonavir (Paxlovid) Eligibility and Patient Discussion [facility] Formulary Restriction Criteria: Adult outpatients 18 [...] chart message today. 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 CABG Diabetes Father Diabetes Paternal [...] Shaneka Lopez APRN.ELIZABETH documented in this encounter [facility] 10-28-2022 Miscellaneous Notes I called and [...] schedule OV afterwards. Thank you. 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 CABG Diabetes Father Diabetes Paternal Grandmother Diabetes Maternal Grandfather other (Lung cancer) Brother other (suicide) Son may of been depression Patient Allergies ALLERGIES Allergen Reactions Brilinta [Ticagrelo* Shortness of Breath Crestor [Rosuvastat* Myalgia Keflex [Cephalexin] Other: See Comments facial flushing Lipitor [Atorvastat* Other: See Comments myalgia Lovastatin Other: See Comments myalgia Everett [Hydrocodone-* Itching Current Medications Current Outpatient Medications [...] PNEUMOCOCCAL IMMUNIZATION PPSV 23 7. Atherosclerosis of [place] coronary artery of [place] heart with stable angina pectoris (HCC) - ICD9: 414.01, 413.9, ICD10: I25.118 Cont with cardio 8. Ductal carcinoma in situ (DCIS) of left breast - ICD9: 233.0, ICD10: D05.12 Cont with oncology 9. History of hyperparathyroidism - ICD9: V12.29, ICD10: Z86.39 Follow up in 6 months for wellness labs prior.. Cherise Sifuentes PA-C documented in this encounter [facility] 09-18-2022 Miscellaneous Notes Pt called and [...] fat in diet. documented in this encounter [facility] 09-16-2022 Miscellaneous Notes Pt notifying provider that she has seen testing results for CT. Please advise. Thank you. DEREJE Kaur documented in this encounter [facility] 09-16-2022 Miscellaneous Notes Spoke with patient and scheduled CT. Sylwia Hedrick Patient is aware of all information and verbalized understanding. Patient will contact [facility] [place] to schedule. PSS- CT abd/pelvis show a subcentimeter hypodense too small to characterize left hepatic lesion. Will plan to repeat CT in 10-12 weeks. Patient is aware of this information. Please contact patient to schedule CT. She is expecting the call. Suki Ambrocoi LPN Please have patient call the breast center at [phone] to schedule dx mammogram when relaying information [...] in 10-12 weeks. Thank you. 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 APRN.FOREST PRODUCTS GATHERER documented in this encounter [facility] 09-09-2022 Miscellaneous Notes Pt was notified of results via phone. See TE 09/09/22. Latrice Dunn LPN documented in this encounter [facility] 09-09-2022 Miscellaneous Notes Patient notified of [...] Cherise Sifuentes PA-C documented in this encounter [facility] 09-09-2022 History of Present illness Narrative [...] 2022 8:26 AM documented in this encounter [facility] 09-08-2022 History of Present illness Narrative Patient presented for H. Pylori Breath testing per Dr Hung. Obtained baseline sample at 9:05am. Patient then drank Pranactin-Citric solution. Waited full 15 minutes and obtained second sample at 9:22am. Patient tolerated testing well with no problems. LOT # [id number] EXP 09/07/2024 Jocelyne Sands LPN documented in this encounter [facility] 09-07-2022 Miscellaneous Notes Patient contacted and scheduled. Given instructions voiced understanding. Tahmina Lopez MA documented in this encounter [facility] 09-03-2022 History of Present illness Narrative [...] on 08/28/2022 stating: I went to see [place] Mariee today (please see notes on my [...] melena or hematochezia. Sometimes the stool is hotel registration clerk in color. No longer has a gal bladder. No recent fevers. Has a CT of the abdomen and pelvis set up for 09/15/2022. Mother with Hx of pancreatic cancer. Past medical history, appointments, medications, allergies reviewed. 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) 10/22/2016 De Quervain's tenosynovitis, left 07/31/2019 Diabetic [...] Date 2D ECHO (EXEP) 06/30/2017 EF=65%, trivial [place], TI and 1+ PI Unchanged from 04/2017 2D ECHO (EXEP) 05/14/2021 EF=60%, 1+ TI, trival [place], AI, PI 2D ECHO (EXEP) 09/16/2021 EF=60%, [...] cancer) Mother Coronary Artery Disease Father 25 [place] @ 25. CABG Diabetes Father Diabetes Paternal Grandmother Diabetes Maternal Grandfather other (Lung cancer) Brother other (suicide) Son may of been depression Patient Allergies ALLERGIES Allergen Reactions Brilinta [Ticagrelo* Shortness of Breath Crestor [Rosuvastat* Myalgia Keflex [Cephalexin] Other: See Comments facial flushing Lipitor [Atorvastat* Other: See Comments myalgia Lovastatin Other: See Comments myalgia Everett [Hydrocodone-* Itching Current Medications Current Outpatient Medications [...] Clifton Hung MD documented in this encounter [facility] 08-28-2022 Miscellaneous Notes Patient contacted and scheduled. Tahmina Lopez MA See if she can come Wednesday evening. I have some one day holds then. Dr. Hung how soon would you like her seen. She is scheduled with Cherise 10/05/2022 for 6 month follow up. Tahmina Lopez MA documented in this encounter [facility] 08-28-2022 Instructions Sima Dumont APRN.ELIZABETH - 08/28/2022 10:40 AM EDT Silicone based lubricant such as Astroglide. Look for one that is hypoallergenic. Continue Revaree. Continue using Aquaphor and minimize use of incontinence pads to protect the skin. documented in this encounter [facility] 08-28-2022 History of Present illness Narrative Brass Bobbin Winder offered: Patient declines. 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) 10/22/2016 De Quervain's tenosynovitis, left 07/31/2019 Diabetic [...] Date 2D ECHO (EXEP) 06/30/2017 EF=65%, trivial [place], TI and 1+ PI Unchanged from 04/2017 2D ECHO (EXEP) 05/14/2021 EF=60%, 1+ TI, trival [place], AI, PI 2D ECHO (EXEP) 09/16/2021 EF=60%, [...] cancer) Mother Coronary Artery Disease Father 25 AZ @ 25. CABG Diabetes Father Diabetes Paternal [...] which included preparing to see the patient, huvx-it-wzrt patient care, completing clinical documentation, obtaining and/or reviewing separately obtained history, performing a medically appropriate examination, and counseling and educating the patient/family/caregiver. documented in this encounter [facility] 08-28-2022 History of Present illness Narrative Chief Complaint Patient presents with: Established Patient: 6 MO FOLLOW UP HPI: Luz Marina Avila is a 67 year old female who presents here today for follow up breast cancer. Per Dr. Georges previous note: H/o aqn-puahfpj-jjirzeytd diabetes mellitus, hypertension, ASCAD, and TIA who [...] breast lumpectomy for DCIS on 04/08/2021 at [facility] Pathology (from [facility]) reveals - ductal carcinoma in situ...,size of DCIS - 1.0 x 0.4 cm...,architectural type - cribriform..., nuclear grade 1-2..., necrosis - present central (expansive comedo necrosis)..., biopsy cavity is 0.5 cm from closest anterior margin (which is skin)..., ER >95%, OK >95% Postoperative course is unremarkable with no [...] 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 APRN.ELIZABETH documented in this encounter [facility] 07-15-2022 Miscellaneous Notes Patient has been [...] [place] [facility] documented in this encounter [facility] 07-09-2022 Instructions Sima Dumont APRN.ELIZABETH - 07/09/2022 8:21 AM EDT Instructions for [...] from your environment. documented in this encounter [facility] 07-09-2022 History of Present illness Narrative Brass Bobbin Winder offered: Patient declines. 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) 10/22/2016 De Quervain's tenosynovitis, left 07/31/2019 Diabetic [...] Date 2D ECHO (EXEP) 06/30/2017 EF=65%, trivial [place], TI and 1+ PI Unchanged from 04/2017 2D ECHO (EXEP) 05/14/2021 EF=60%, 1+ TI, trival [place], AI, PI 2D ECHO (EXEP) 09/16/2021 EF=60%, [...] cancer) Mother Coronary Artery Disease Father 25 [place] @ 25. CABG Diabetes Father Diabetes Paternal [...] external genitalia normal, normal Bartholin's glands, urethra, Chefornak's glands, no vulvar lesions, physiologic discharge present, [...] 4 - Moderate documented in this encounter [facility] 07-08-2022 Miscellaneous Notes Info noted. documented in this encounter [facility] 07-03-2022 Miscellaneous Notes The following approved medication requests have been transmitted electronically. Requested Prescriptions Signed Prescriptions Disp Refills fluconazole (DIFLUCAN) 150 mg tablet 3 tablet 1 Si tab by mouth every other day for 3 doses Clifton Hung MD documented in this encounter [facility] 06-30-2022 History of Present illness Narrative This note was created using [employer]. 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) 01/16/2016 Lat done: 12/03/2017 No retinopathy Ductal [...] Date 2D ECHO (EXEP) 06/30/2017 EF=65%, trivial [place], TI and 1+ PI Unchanged from 04/2017 2D ECHO (EXEP) 05/14/2021 EF=60%, 1+ TI, trival [place], AI, PI 2D ECHO (EXEP) 09/16/2021 EF=60%, [...] cancer) Mother Coronary Artery Disease Father 25 [place] @ 25. CABG Diabetes Father Diabetes Paternal [...] Martha Montoya PA-C documented in this encounter [facility] 06-16-2022 Miscellaneous Notes Please see pt's message. Latrice Dunn LPN documented in this encounter [facility] 02-25-2022 History of Present illness Narrative Chief Complaint Patient presents with: Established Patient: SCP HPI: Luz Marina Avila is a 66 year old female who presents here today for SCP/DCIS. Per Dr. Georges previous note: H/o [id number] diabetes mellitus, hypertension, ASCAD, and TIA who [...] breast lumpectomy for DCIS on 04/08/2021 at [facility] Pathology (from [facility]) reveals - ductal carcinoma in situ...,size of DCIS - 1.0 x 0.4 cm...,architectural type - cribriform..., nuclear grade 1-2..., necrosis - present central (expansive comedo necrosis)..., biopsy cavity is 0.5 cm from closest anterior margin (which is skin)..., ER >95%, OK >95% Postoperative course is unremarkable with no [...] 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 APRN.ELIZABETH documented in this encounter [facility] 02-23-2022 Miscellaneous Notes February 23, 2022 PID: [id number] Luz Marina Avila [address] [place] [id number] Dear Ms. Avila, We are pleased to [...] report will be kept on file at [facility] as part of your permanent medical record and are available for your continuing care. Thank you for allowing us to help in meeting your health care needs. Sincerely, Dr. Benedict Interpreting Radiologist [facility] (Normal over 40) documented in this encounter [facility] 02-23-2022 History of Present illness Narrative [...] 2022 10:17 AM documented in this encounter [facility] 02-10-2022 Miscellaneous Notes Last office visit: 09/26/21 F/u scheduled: 04/03/22 Kassandra Mitchell Ma documented in this encounter [facility] Diagnosis Breast neoplasm, Tis (DCIS), left- Primary [facility] Diagnosis Nasal lesion- Primary Other diseases of nasal cavity and sinuses [facility] Diagnosis Vagina itching- Primary Pruritus of genital organs Dysuria Urinary frequency Superficial dyspareunia Mixed incontinence Mixed incontinence urge and stress (male)(female) Vaginal atrophy Postmenopausal atrophic vaginitis Cystocele, midline Long-term current use of tamoxifen [facility] Diagnosis Vaginal atrophy- Primary Postmenopausal atrophic vaginitis Vulvar dermatitis Other inflammatory disease of cervix, vagina and vulva [facility] Diagnosis Breast neoplasm, Tis (DCIS), left- Primary Encounter for screening mammogram for high-risk patient Nausea Nausea alone Pain of upper abdomen Abdominal pain, other specified site [facility] Diagnosis Epigastric pain- Primary Abdominal pain, epigastric Nausea Nausea alone Need for vaccination Need for prophylactic vaccination and inoculation against unspecified single disease [facility] Diagnosis Epigastric pain Abdominal pain, epigastric [facility] Diagnosis Abnormal CT of the abdomen- Primary Nonspecific (abnormal) findings on radiological and other examination of abdominal area, including retroperitoneum Liver lesion Other specified disorders of liver Ductal carcinoma in situ (DCIS) of left breast Abnormal CT of the chest Nonspecific (abnormal) findings on radiological and other examination of other intrathoracic organs [facility] Diagnosis Controlled type 2 diabetes mellitus without complication, without long-term current use of insulin (HCC)- Primary Essential hypertension Unspecified essential hypertension Mixed hyperlipidemia Vitamin D deficiency Unspecified vitamin D deficiency Upper back pain Need for vaccination Need for prophylactic vaccination and inoculation against unspecified single disease 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* Diagnosis Other diabetic neurological complication associated with type 2 diabetes mellitus (HCC)- Primary Ingrowing toenail Ingrowing nail [facility] this [facility]* Diagnosis Sore throat- Primary Acute pharyngitis Acute cough documented in this encounter [facility] note* Diagnosis Vaginal discharge- Primary Leukorrhea, not specified as infective documented in this [facility]* Diagnosis Bacterial vaginosis- Primary Vaginitis and vulvovaginitis, unspecified documented [facility] this [facility]* Diagnosis URI with cough and congestion- Primary [facility]* Diagnosis Bacterial sinusitis- Primary Unspecified sinusitis (chronic) documented in this encounter [facility] note* Diagnosis RLS (restless legs syndrome) Restless legs syndrome (RLS) documented in this encounter [facility]* Diagnosis 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 Encounter for screening mammogram for high-risk patient [facility] Diagnosis Encounter for Medicare annual wellness exam- Primary Routine general medical examination at a health care facility Controlled type 2 diabetes mellitus without complication, without long-term current use of insulin ([facility]) Diabetic eye exam ([facility]) Type II or unspecified type diabetes mellitus without mention of complication, not stated as uncontrolled Essential hypertension Unspecified essential hypertension Mixed hyperlipidemia Atherosclerosis of [place] coronary artery of [place] heart with stable angina pectoris ([facility]) History of transient ischemic attack (TIA) Transient [...] Other specified counseling [facility]* Diagnosis Dysuria- Primary Urine frequency Urinary frequency Vaginal discharge Leukorrhea, not specified as infective Vulvovaginal discomfort Unspecified symptom associated with female genital organs documented in this [facility]* Diagnosis Abnormal CT of the abdomen Nonspecific (abnormal) findings on radiological and other examination of abdominal area, including retroperitoneum Liver lesion Other specified disorders of liver Ductal carcinoma in situ (DCIS) of left breast documented in this encounter [facility] note* Diagnosis Epigastric pain Abdominal pain, epigastric documented in this encounter [facility] note* Diagnosis Breast neoplasm, Tis (DCIS), left Encounter for screening mammogram for high-risk patient documented in this encounter [facility] note* Diagnosis Ductal carcinoma in situ (DCIS) of left breast Abnormal CT of the chest Nonspecific (abnormal) findings on radiological and other examination of other intrathoracic organs documented in this encounter [facility] note* Diagnosis Essential hypertension- Primary Unspecified essential hypertension Controlled type 2 diabetes mellitus without complication, without long-term current use of insulin (HCC) Mixed hyperlipidemia 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 RLS (restless legs syndrome) Restless legs syndrome (RLS) Obstructive sleep apnea on CPAP Obstructive sleep apnea (adult) (pediatric) documented in this encounter [facility] for referral (narrative)* Diagnostic Procedure Only (Routine) - Closed Specialty Diagnoses / Procedures Referred By Jared hernández Referred To Contact [facility] Diagnoses Breast neoplasm, Tis (DCIS), left Encounter for screening mammogram for malignant neoplasm of breast Procedures GUILLERMINA SCREENING SCREENING MAMMOGRAPHY BI 2-VIEW BREAST INC CAD Alberto Georges MD [address] [place] [address] [facility] [address] [place] [id number] Referral ID Status Reason Start Date Expiration Date V isits Requested Visits Authorized [id number] Closed Auto-Generate d Referral 02/23/2022 07/30/2022 1 1 [facility] for referral (narrative)* Diagnostic Procedure Only (Routine) - Authorized Specialty Diagnoses / Procedures Referred By Jared hernández Referred To Contact [facility] Diagnoses Ductal carcinoma in situ (DCIS) of left breast Abnormal CT of the chest Procedures US BREAST LTD LT US BREAST UNI REAL TIME WITH IMAGE LIMITED 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 APRN.[employer] [address] [place] [address] [facility] [address] [place] [address] Referral ID Status Reason Start Date Expiration Date Visits Requested Visits Authorized [id number] Authorized Auto-Generat ed Referral 09/16/2022 10/16/2023 1 1 * Diagnostic Procedure Only (Routine) - Authorized Specialty Diagnoses / Procedures Referred By Mikaylaac t Referred To Contact [facility] Diagnoses Ductal carcinoma in situ (DCIS) of left breast Abnormal CT of the chest Procedures GUILLERMINA DIAGNOSTIC LT DIAGNOSTIC MAMMOGRAPHY COMPUTER-AIDED DETCJ UNI 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 APRN.[employer] [address] [place] [address] [facility] [address] [place] [address] Referral ID Status Reason Start Date Expiration Date Visits Requested Visits Authorized [id number] Authorized Auto-Generat ed Referral 09/16/2022 10/16/2023 1 1 * MRI/CT (Routine) - Pending Review Specialty Diagnoses / Procedures Referred By Jared hernández Referred To Contact CT IMAGING Diagnoses Abnormal CT of the abdomen Liver 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 Procedures CT ABD/PEL W IVCON CT ABD & PELVIS W/CONTRAST 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 APRN.[employer] [address] [place] [address] Ct [facility] Referral ID Status Reason Start Date Expiration Date Visits Requested Visits Authorized [id number] Pending Review Auto-Generat ed Referral 09/16/2022 10/16/2023 1 1 [facility] Diagnostic Procedure Only (Routine) - Pending Review Specialty Diagnoses / Procedures Referred By Jared t Referred To Contact [facility] Diagnoses Ductal carcinoma in situ (DCIS) of left breast Encounter for screening mammogram for high-risk patient Procedures GUILLERMINA SCREENING W ANGELA SCREENING DIGITAL BREAST TOMOSYNTHESIS BI SCREENING MAMMOGRAPHY BI 2-VIEW BREAST INC CAD 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 APRN.[employer] [address] [place] [address] [facility] [address] [place] [address] Referral ID Status Reason Start Date Expiration Date Visits Requested Visits Authorized [id number] Pending Review Auto-Generat ed Referral 02/26/2023 03/27/2024 1 1 [facility] for referral (narrative)* Diagnostic Procedure Only (Routine) - Closed Specialty Diagnoses / Procedures Referred By Jared hernández Referred To Contact CT IMAGING Diagnoses Abnormal CT of the abdomen Liver 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 Procedures CT ABD/PEL W IVCON CT ABD & PELVIS W/CONTRAST 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 APRN.[employer] [address] [place] [address] [place] [address] Referral ID Status Reason Start Date Expiration Date V isits Requested Visits Authorized [id number] Closed Auto-Generate d Referral 11/25/2022 12/25/2022 2 2 [facility] for referral (narrative)* Diagnostic Procedure Only (Routine) - Closed Specialty Diagnoses / Procedures [facility] Referred To Contact [facility] Diagnoses Epigastric pain Procedures US ABD RT UPPER QUADRANT US ABDOMINAL REAL TIME W/IMAGE LIMITED Clifton Hung MD [address] [place] [address] [place] [address] Referral ID Status Reason Start Date Expiration Date V isits Requested Visits Authorized [id number] Closed Auto-Generate d Referral 09/03/2022 10/03/2023 1 1 [facility] for referral (narrative)* Diagnostic Procedure Only (Routine) - Closed Specialty Diagnoses / Procedures Referred By Jared t Referred To Contact [facility] Diagnoses Breast neoplasm, Tis (DCIS), left Encounter for screening mammogram for high-risk patient Procedures GUILLERMINA SCREENING SCREENING MAMMOGRAPHY BI 2-VIEW BREAST INC Julieth Wilhelm APRN.[employer] [address] [place] [address] [facility] [address] [place] [address] Referral ID Status Reason Start Date Expiration Date V isits Requested Visits Authorized [id number] Closed Auto-Generate d Referral 08/28/2022 09/27/2023 1 1 [facility] for visit Narrative* Diagnostic Procedure Only (Routine) - Closed Specialty Diagnoses / Procedures Referred By Jared t Referred To Contact [facility] Diagnoses Breast neoplasm, Tis (DCIS), left Encounter for screening mammogram for malignant neoplasm of breast Procedures GUILLERMINA SCREENING SCREENING MAMMOGRAPHY BI 2-VIEW BREAST INC Alberto Mehta MD [address] [place] [address] [facility] [address] [place] [address] Referral ID Status Reason Start Date Expiration Date V isits Requested Visits Authorized [id number] Closed Auto-Generate d Referral 02/23/2022 07/30/2022 1 1 [facility] for visit Narrative* Diagnostic Procedure Only (Routine) - Closed Specialty Diagnoses / Procedures Referred By Jared t Referred To Contact [facility] Diagnoses Breast neoplasm, Tis (DCIS), left Encounter for screening mammogram for high-risk patient Procedures GUILLERMINA SCREENING SCREENING MAMMOGRAPHY BI 2-VIEW BREAST INC Julieth Wilhelm, CONTROL SYSTEMS ENGINEER.[employer] [address] [place] [address] [facility] [address] [place] [address] Referral ID Status Reason Start Date Expiration Date V isits Requested Visits Authorized [id number] Closed Auto-Generate d Referral 08/28/2022 09/27/2023 1 1 [facility] for visit Narrative* Diagnostic Procedure Only (Routine) - Closed Specialty Diagnoses / Procedures Referred By Jared t Referred To Contact CT IMAGING Diagnoses Abnormal CT of the abdomen Liver 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 Procedures CT ABD/PEL W IVCON CT ABD & PELVIS W/CONTRAST 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 APRN.[employer] [address] [place] [address] [place] [address] Referral ID Status Reason Start Date Expiration Date V isits Requested Visits Authorized [id number] Closed Auto-Generate d Referral 11/25/2022 12/25/2022 2 2 [facility] for visit Narrative* Diagnostic Procedure Only (Routine) - Closed Specialty Diagnoses / Procedures Referred By Jared hernández Referred To Contact [facility] Diagnoses Ductal carcinoma in situ (DCIS) of left breast Abnormal CT of the chest Procedures GUILLERMINA DIAGNOSTIC LT DIAGNOSTIC MAMMOGRAPHY COMPUTER-AIDED DETCJ UNI 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 APRN.[employer] [address] [place] [address] [facility] [address] [place] [address] Referral ID Status Reason Start Date Expiration Date V isits Requested Visits Authorized [id number] Closed Auto-Generate d Referral 09/16/2022 10/16/2023 1 1 [facility] Advance Directives No Advanced Directives Records FoundDocuments on File Type Date Recorded Patient [employer] Operator Expl anation Advance Directive(s) 06/24/2021 1:42 PM Advance Directive(s) 08/09/2018 8:15 AM Documents on File Type Date Recorded Patient [employer] Operations [employer] Operator Expl anation Advance Directive(s) 06/24/2021 1:42 PM Advance Directive(s) 08/09/2018 8:15 AM Documents on File Type Date Recorded Patient [employer] Operator Expl anation Advance Directive(s) 04/07/2022 12:26 PM Documents on File Type Date Recorded Patient [employer] Operator Expl anation Advance Directive(s) 04/07/2022 12:26 PM Reason for Referral Specialty Diagnoses / Procedures Referred By Jared hernández Referred To Contact CT IMAGING Diagnoses Breast neoplasm, Tis (DCIS), left Nausea Pain of upper abdomen Procedures CT CHEST W IVCON DIAGNOSTIC COMPUTED TOMOGRAPHY THORAX W/CONTRAST 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 APRN.[employer] [address] [place] [address] Ct Imaging Referral ID Status Reason Start Date Expiration Date Visits Requested Visits Authorized [id number] Pending Review Auto-Generat ed Referral 2 09/27/2023 1 1 Specialty Diagnoses / Procedures Referred By Contac t Referred To Contact CT IMAGING Diagnoses Breast neoplasm, Tis (DCIS), left Nausea Pain of upper abdomen Procedures CT ABD/PEL W IVCON CT ABD & PELVIS W/CONTRAST 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, CONTROL SYSTEMS ENGINEER.[employer] [address] [place] [address] Ct Imaging Referral ID Status Reason Start Date Expiration Date Visits Requested Visits Authorized [id number] Pending Review Auto-Generat ed Referral 2 09/27/2023 1 1 Specialty Diagnoses / Procedures Referred By Contac t Referred To Contact [facility] Diagnoses Breast neoplasm, Tis (DCIS), left Encounter for screening mammogram for high-risk patient Procedures GUILLERMINA SCREENING SCREENING MAMMOGRAPHY BI 2-VIEW BREAST INC CAD 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, CONTR[employer] SYSTEMS ENGINEER.[employer] [address] [place] [address] [facility] [address] [place] [address] Referral ID Status Reason Start Date Expiration Date Visits Requested Visits Authorized [id number] Authorized Auto-Generat ed Referral 2 09/27/2023 1 1 Specialty Diagnoses / Procedures Referred By Contac t Referred To Contact Gastroenterology Diagnoses Nausea Epigastric pain Procedures CONSULT TO GASTROENTEROLOGY OFFICE/OUTPATIENT [facility] MDM 60-74 MINUTES Clifton Hung MD [address] [place] [address] Referral ID Status Reason Start Date Expiration Date Visits Requested Visits Authorized [id number] Authorized PCP Requested Referral 2 09/03/2023 1 1 Specialty Diagnoses / Procedures Referred By Contac t Referred To Contact [facility] Diagnoses Epigastric pain Procedures US ABD RT UPPER QUADRANT US ABDOMINAL REAL TIME W/IMAGE LIMITED Clifton Hung MD [address] [place] [address] Us [facility] Referral ID Status Reason Start Date Expiration Date Visits Requested Visits Authorized [id number] Authorized Auto-Generat ed Referral 2 10/03/2023 1 [...] or prosecute any alcohol or drug abuse patient.[facility] the event this information is protected by the Federal Confidentiality of Alcohol and Drug Abuse Patient Records regulations: The Federal rules restrict any use of the information to criminally investigate or prosecute any alcohol or drug abuse patient.[facility] the event this information is protected by the Federal Confidentiality of Alcohol and Drug Abuse Patient Records regulations: The Federal rules restrict any use of the information to criminally investigate or prosecute any alcohol or drug abuse patient.[facility] the event this information is protected by the Federal Confidentiality of Alcohol and Drug Abuse Patient Records regulations: The Federal rules restrict any use of the information to criminally investigate or prosecute any alcohol or drug abuse patient.[facility] the event this information is protected by the Federal Confidentiality of Alcohol and Drug Abuse Patient Records regulations: The Federal rules restrict any use of the information to criminally investigate or prosecute any alcohol or drug abuse patient.[facility] the event this information is protected by the Federal Confidentiality of Alcohol and Drug Abuse Patient Records regulations: The Federal rules restrict any use of the information to criminally investigate or prosecute any alcohol or drug abuse patient.[facility] the event this information is protected by the Federal Confidentiality of Alcohol and Drug Abuse Patient Records regulations: The Federal rules restrict any use of the information to criminally investigate or prosecute any alcohol or drug abuse patient.[facility] the event this information is protected by the Federal Confidentiality of Alcohol and Drug Abuse Patient Records regulations: The Federal rules restrict any use of the information to criminally investigate or prosecute any alcohol or drug abuse patient.[facility] the event this information is protected by the Federal Confidentiality of Alcohol and Drug Abuse Patient Records regulations: The Federal rules restrict any use of the information to criminally investigate or prosecute any alcohol or drug abuse patient.[facility] the event this information is protected by the Federal Confidentiality of Alcohol and Drug Abuse Patient Records regulations: The Federal rules restrict any use of the information to criminally investigate or prosecute any alcohol or drug abuse patient.[facility] the event this information is protected by the Federal Confidentiality of Alcohol and Drug Abuse Patient Records regulations: The Federal rules restrict any use of the information to criminally investigate or prosecute any alcohol or drug abuse patient.[facility] the event this information is protected by the Federal Confidentiality of Alcohol and Drug Abuse Patient Records regulations: The Federal rules restrict any use of the information to criminally investigate or prosecute any alcohol or drug abuse patient.[facility] the event this information is protected by the Federal Confidentiality of Alcohol and Drug Abuse Patient Records regulations: The Federal rules restrict any use of the information to criminally investigate or prosecute any alcohol or drug abuse patient.[facility] the event this information is protected by the Federal Confidentiality of Alcohol and Drug Abuse Patient Records regulations: The Federal rules restrict any use of the information to criminally investigate or prosecute any alcohol or drug abuse patient.[facility] the event this information is protected by the Federal Confidentiality of Alcohol and Drug Abuse Patient Records regulations: The Federal rules restrict any use of the information to criminally investigate or prosecute any alcohol or drug abuse patient.[facility] the event this information is protected by the Federal Confidentiality of Alcohol and Drug Abuse Patient Records regulations: The Federal rules restrict any use of the information to criminally investigate or prosecute any alcohol or drug abuse patient.[facility] the event this information is protected by the Federal Confidentiality of Alcohol and Drug Abuse Patient Records regulations: The Federal rules restrict any use of the information to criminally investigate or prosecute any alcohol or drug abuse patient.[facility] the event this information is protected by the Federal Confidentiality of Alcohol and Drug Abuse Patient Records regulations: The Federal rules restrict any use of the information to criminally investigate or prosecute any alcohol or drug abuse patient.[facility] the event this information is protected by the Federal Confidentiality of Alcohol and Drug Abuse Patient Records regulations: The Federal rules restrict any use of the information to criminally investigate or prosecute any alcohol or drug abuse patient.[facility] HospitalIn the event this information is protected by the Federal Confidentiality of Alcohol and Drug Abuse Patient Records regulations: The Federal rules restrict any use of the information to criminally investigate or prosecute any alcohol or drug abuse patient.[facility] HospitalIn the event this information is protected by the Federal Confidentiality of Alcohol and Drug Abuse Patient Records regulations: The Federal rules restrict any use of the information to criminally investigate or prosecute any alcohol or drug abuse patient.[facility] HospitalIn the event this information is protected by the Federal Confidentiality of Alcohol and Drug Abuse Patient Records regulations: The Federal rules restrict any use of the information to criminally investigate or prosecute any alcohol or drug abuse patient.[facility] HospitalIn the event this information is protected by the Federal Confidentiality of Alcohol and Drug Abuse Patient Records regulations: The Federal rules restrict any use of the information to criminally investigate or prosecute any alcohol or drug abuse patient.[facility] HospitalIn the event this information is protected by the Federal Confidentiality of Alcohol and Drug Abuse Patient Records regulations: The Federal rules restrict any use of the information to criminally investigate or prosecute any alcohol or drug abuse patient.[facility] HospitalIn the event this information is protected by the Federal Confidentiality of Alcohol and Drug Abuse Patient Records regulations: The Federal rules restrict any use of the information to criminally investigate or prosecute any alcohol or drug abuse patient.[facility] HospitalIn the event this information is protected by the Federal Confidentiality of Alcohol and Drug Abuse Patient Records regulations: The Federal rules restrict any use of the information to criminally investigate or prosecute any alcohol or drug abuse patient.[facility] HospitalIn the event this information is protected by the Federal Confidentiality of Alcohol and Drug Abuse Patient Records regulations: The Federal rules restrict any use of the information to criminally investigate or prosecute any alcohol or drug abuse patient.[facility] HospitalIn the event this information is protected by the Federal Confidentiality of Alcohol and Drug Abuse Patient Records regulations: The Federal rules restrict any use of the information to criminally investigate or prosecute any alcohol or drug abuse patient.[facility] HospitalIn the event this information is protected by the Federal Confidentiality of Alcohol and Drug Abuse Patient Records regulations: The Federal rules restrict any use of the information to criminally investigate or prosecute any alcohol or drug abuse patient.[facility] HospitalIn the event this information is protected by the Federal Confidentiality of Alcohol and Drug Abuse Patient Records regulations: The Federal rules restrict any use of the information to criminally investigate or prosecute any alcohol or drug abuse patient.[facility] HospitalIn the event this information is protected by the Federal Confidentiality of Alcohol and Drug Abuse Patient Records regulations: The Federal rules restrict any use of the information to criminally investigate or prosecute any alcohol or drug abuse patient.[facility] HospitalIn the event this information is protected by the Federal Confidentiality of Alcohol and Drug Abuse Patient Records regulations: The Federal rules restrict any use of the information to criminally investigate or prosecute any alcohol or drug abuse patient.[facility] HospitalIn the event this information is protected by the Federal Confidentiality of Alcohol and Drug Abuse Patient Records regulations: The Federal rules restrict any use of the information to criminally investigate or prosecute any alcohol or drug abuse patient.[facility] HospitalIn the event this information is protected by the Federal Confidentiality of Alcohol and Drug Abuse Patient Records regulations: The Federal rules restrict any use of the information to criminally investigate or prosecute any alcohol or drug abuse patient.[facility] HospitalIn the event this information is protected by the Federal Confidentiality of Alcohol and Drug Abuse Patient Records regulations: The Federal rules restrict any use of the information to criminally investigate or prosecute any alcohol or drug abuse patient.[facility] HospitalIn the event this information is protected by the Federal Confidentiality of Alcohol and Drug Abuse Patient Records regulations: The Federal rules restrict any use of the information to criminally investigate or prosecute any alcohol or drug abuse patient.[facility] HospitalIn the event this information is protected by the Federal Confidentiality of Alcohol and Drug Abuse Patient Records regulations: The Federal rules restrict any use of the information to criminally investigate or prosecute any alcohol or drug abuse patient.[facility] HospitalIn the event this information is protected by the Federal Confidentiality of Alcohol and Drug Abuse Patient Records regulations: The Federal rules restrict any use of the information to criminally investigate or prosecute any alcohol or drug abuse patient.[facility] HospitalIn the event this information is protected by the Federal Confidentiality of Alcohol and Drug Abuse Patient Records regulations: The Federal rules restrict any use of the information to criminally investigate or prosecute any alcohol or drug abuse patient.[facility] HospitalIn the event this information is protected by the Federal Confidentiality of Alcohol and Drug Abuse Patient Records regulations: The Federal rules restrict any use of the information to criminally investigate or prosecute any alcohol or drug abuse patient.[facility] HospitalIn the event this information is protected by the Federal Confidentiality of Alcohol and Drug Abuse Patient Records regulations: The Federal rules restrict any use of the information to criminally investigate or prosecute any alcohol or drug abuse patient.[facility] HospitalIn the event this information is protected by the Federal Confidentiality of Alcohol and Drug Abuse Patient Records regulations: The Federal rules restrict any use of the information to criminally investigate or prosecute any alcohol or drug abuse patient.[facility] HospitalIn the event this information is protected by the Federal Confidentiality of Alcohol and Drug Abuse Patient Records regulations: The Federal rules restrict any use of the information to criminally investigate or prosecute any alcohol or drug abuse patient.[facility] HospitalIn the event this information is protected by the Federal Confidentiality of Alcohol and Drug Abuse Patient Records regulations: The Federal rules restrict any use of the information to criminally investigate or prosecute any alcohol or drug abuse patient.[facility] HospitalIn the event this information is protected by the Federal Confidentiality of Alcohol and Drug Abuse Patient Records regulations: The Federal rules restrict any use of the information to criminally investigate or prosecute any alcohol or drug abuse patient.[facility] HospitalIn the event this information is protected by the Federal Confidentiality of Alcohol and Drug Abuse Patient Records regulations: The Federal rules restrict any use of the information to criminally investigate or prosecute any alcohol or drug abuse patient.[facility] HospitalIn the event this information is protected by the Federal Confidentiality of Alcohol and Drug Abuse Patient Records regulations: The Federal rules restrict any use of the information to criminally investigate or prosecute any alcohol or drug abuse patient.[facility] HospitalIn the event this information is protected by the Federal Confidentiality of Alcohol and Drug Abuse Patient Records regulations: The Federal rules restrict any use of the information to criminally investigate or prosecute any alcohol or drug abuse patient.[facility] HospitalIn the event this information is protected by the Federal Confidentiality of Alcohol and Drug Abuse Patient Records regulations: The Federal rules restrict any use of the information to criminally investigate or prosecute any alcohol or drug abuse patient.[facility] HospitalIn the event this information is protected by the Federal Confidentiality of Alcohol and Drug Abuse Patient Records regulations: The Federal rules restrict any use of the information to criminally investigate or prosecute any alcohol or drug abuse patient.[facility] HospitalIn the event this information is protected by the Federal Confidentiality of Alcohol and Drug Abuse Patient Records regulations: The Federal rules restrict any use of the information to criminally investigate or prosecute any alcohol or drug abuse patient.[facility] HospitalIn the event this information is protected by the Federal Confidentiality of Alcohol and Drug Abuse Patient Records regulations: The Federal rules restrict any use of the information to criminally investigate or prosecute any alcohol or drug abuse patient.[facility] HospitalIn the event this information is protected by the Federal Confidentiality of Alcohol and Drug Abuse Patient Records regulations: The Federal rules restrict any use of the information to criminally investigate or prosecute any alcohol or drug abuse patient.[facility] HospitalIn the event this information is protected by the Federal Confidentiality of Alcohol and Drug Abuse Patient Records regulations: The Federal rules restrict any use of the information to criminally investigate or prosecute any alcohol or drug abuse patient.[facility] HospitalIn the event this information is protected by the Federal Confidentiality of Alcohol and Drug Abuse Patient Records regulations: The Federal rules restrict any use of the information to criminally investigate or prosecute any alcohol or drug abuse patient.[facility] HospitalIn the event this information is protected by the Federal Confidentiality of Alcohol and Drug Abuse Patient Records regulations: The Federal rules restrict any use of the information to criminally investigate or prosecute any alcohol or drug abuse patient.[facility] HospitalIn the event this information is protected by the Federal Confidentiality of Alcohol and Drug Abuse Patient Records regulations: The Federal rules restrict any use of the information to criminally investigate or prosecute any alcohol or drug abuse patient.[facility] HospitalIn the event this information is protected by the Federal Confidentiality of Alcohol and Drug Abuse Patient Records regulations: The Federal rules restrict any use of the information to criminally investigate or prosecute any alcohol or drug abuse patient.[facility] HospitalIn the event this information is protected by the Federal Confidentiality of Alcohol and Drug Abuse Patient Records regulations: The Federal rules restrict any use of the information to criminally investigate or prosecute any alcohol or drug abuse patient.[facility] HospitalIn the event this information is protected by the Federal Confidentiality of Alcohol and Drug Abuse Patient Records regulations: The Federal rules restrict any use of the information to criminally investigate or prosecute any alcohol or drug abuse patient.[facility] HospitalIn the event this information is protected by the Federal Confidentiality of Alcohol and Drug Abuse Patient Records regulations: The Federal rules restrict any use of the information to criminally investigate or prosecute any alcohol or drug abuse patient.[facility] HospitalIn the event this information is protected by the Federal Confidentiality of Alcohol and Drug Abuse Patient Records regulations: The Federal rules restrict any use of the information to criminally investigate or prosecute any alcohol or drug abuse patient.[facility] HospitalIn the event this information is protected by the Federal Confidentiality of Alcohol and Drug Abuse Patient Records regulations: The Federal rules restrict any use of the information to criminally investigate or prosecute any alcohol or drug abuse patient.[facility] HospitalIn the event this information is protected by the Federal Confidentiality of Alcohol and Drug Abuse Patient Records regulations: The Federal rules restrict any use of the information to criminally investigate or prosecute any alcohol or drug abuse patient.[facility] HospitalIn the event this information is protected by the Federal Confidentiality of Alcohol and Drug Abuse Patient Records regulations: The Federal rules restrict any use of the information to criminally investigate or prosecute any alcohol or drug abuse patient.[facility] HospitalIn the event this information is protected by the Federal Confidentiality of Alcohol and Drug Abuse Patient Records regulations: The Federal rules restrict any use of the information to criminally investigate or prosecute any alcohol or drug abuse patient.[facility] HospitalIn the event this information is protected by the Federal Confidentiality of Alcohol and Drug Abuse Patient Records regulations: The Federal rules restrict any use of the information to criminally investigate or prosecute any alcohol or drug abuse patient.[facility] HospitalIn the event this information is protected by the Federal Confidentiality of Alcohol and Drug Abuse Patient Records regulations: The Federal rules restrict any use of the information to criminally investigate or prosecute any alcohol or drug abuse patient.[facility] Reason for Visit (unrecogniz ed section [...] CT ABD & PELVIS W/CONTRAST 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, [employer] [address] [place] [address] [place] [address] Referral ID Status Reason Start Date Expiration Date V isits Requested Visits Authorized [id number] Closed Auto-Generate d Referral 11/25/2022 12/25/2022 2 2 Reason Comments Radiology US Specialty Diagnoses / Procedures Referred By Contac t Referred To Contact US IMAGING Diagnoses Epigastric pain Procedures US ABD RT UPPER QUADRANT US ABDOMINAL REAL TIME W/IMAGE LIMITED Clifton Hung MD [address] [place] [address] [place] [address] Referral ID Status Reason Start Date Expiration Date V isits Requested Visits Authorized [id number] Closed Auto-Generate d Referral 09/03/2022 10/03/2023 1 1 Specialty Diagnoses / Procedures Referred By Jared hernández Referred To Contact CT IMAGING Diagnoses Breast neoplasm, Tis (DCIS), left Nausea Pain of upper abdomen Procedures CT CHEST W IVCON DIAGNOSTIC COMPUTED TOMOGRAPHY THORAX W/CONTRAST 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 APRN.[employer] [address] [place] [address] [place] [address] Referral ID Status Reason Start Date Expiration Date V isits Requested Visits Authorized [id number] Closed Auto-Generate d Referral 09/15/2022 10/15/2022 2 2 Reason Comments Outside Ophtalmology Reason Comments Outside [id number] Ordered Reason Comments ER Discharge Summary Care Teams (unrecognized sec tion and content) Interventional Physician Relationship Specialty Start Date End Date Clifton Hung MD [address] [place] [address] PCP - General Family Practice 01/16/16 Renata Barnhart MD, [address] [place] [address] Physician Radiation Oncology 04/25/21 Interventional Physician Relationship Specialty Start Date End Date Clifton Hung MD [address] [place] [address] PCP - General Family Practice 01/16/16 Renata Barnhart MD, [address] [place] [address] Physician Radiation Oncology 04/25/21 Interventional Physician Relationship Specialty Start Date End Date Clifton Hung MD [address] [place] [address] PCP - General Family Practice 01/16/16 Renata Barnhart MD, [address] [place] [address] Physician Radiation Oncology 04/25/21 Interventional Physician Relationship Specialty Start Date End Date Clifton Hung MD [address] [place] [address] PCP - General Family Practice 01/16/16 Renata Barnhart MD, [address] [place] [address] Physician Radiation Oncology 04/25/21 Interventional Physician Relationship Specialty Start Date End Date Clifton Hung MD [address] [place] [address] PCP - General Family Practice 01/16/16 Renata Barnhart MD, [address] [place] [address] Physician Radiation Oncology 04/25/21 Interventional Physician Relationship Specialty Start Date End Date Clifton Hung MD [address] [facility] [address] PCP - General Family Practice 01/16/16 Renata Barnhart MD, [address] [place] [address] Physician Radiation Oncology 04/25/21 Interventional Physician Relationship Specialty Start Date End Date Clifton Hung MD [address] [facility] [address] PCP - General Family Practice 01/16/16 Renata Barnhart MD, [address] [place] [address] Physician Radiation Oncology 04/25/21 Interventional Physician Relationship Specialty Start Date End Date Clifton Hung MD [address] [place] [address] PCP - General Family Practice 01/16/16 Renata Barnhart MD, [address] [place] [address] Physician Radiation Oncology 04/25/21 Interventional Physician Relationship Specialty Start Date End Date Clifton Hung MD [address] [facility] [place] [address] PCP - General Family Practice 01/16/16 Renata Barnhart MD, [address] [facility] [place] [address] Physician Radiation Oncology 04/25/21 Interventional Physician Relationship Specialty Start Date End Date Clifton Hung MD [address] [facility] [place] [address] PCP - General Family Medicine 01/16/16 Renata Barnhart MD, [address] [place] [address] Physician Radiation Oncology 04/25/21 Interventional Physician Relationship Specialty Start Date End Date Clifton Hung MD [address] [facility] [place] [address] PCP - General Family Medicine 01/16/16 Renata Barnhart MD, [address] [facility] [place] [address] Physician Radiation Oncology 04/25/21 Interventional Physician Relationship Specialty Start Date End Date Clifton Hung MD [address] [facility] [place] [address] PCP - General Family Medicine 01/16/16 Renata Barnhart MD, [address] [facility] [place] [address] Physician Radiation Oncology 04/25/21 Interventional Physician Relationship Specialty Start Date End Date Clifton Hung MD [address] [facility] [place] [address] PCP - General Family Medicine 01/16/16 Renata Barnhart MD, [address] [place] [address] Physician Radiation Oncology 04/25/21 Interventional Physician Relationship Specialty Start Date End Date Clifton Hung MD [address] [place] [address] PCP - General Family Medicine 01/16/16 Renata Barnhart MD, [address] [place] [address] Physician Radiation Oncology 04/25/21 Interventional Physician Relationship Specialty Start Date End Date Clifton Hung MD [address] [place] [address] PCP - General Family Medicine 01/16/16 Renata Barnhart MD, [address] [place] [address] Physician Radiation Oncology 04/25/21 Interventional Physician Relationship Specialty Start Date End Date Clifton Hung MD [address] [facility] [address] PCP - General Family Medicine 01/16/16 Renata Barnhart MD, [address] [place] [address] Physician Radiation Oncology 04/25/21 Interventional Physician Relationship Specialty Start Date End Date Clifton Hung MD [address] [facility] [address] PCP - General Family Medicine 01/16/16 Renata Barnhart MD, [address] [place] [address] Physician Radiation Oncology 04/25/21 Interventional Physician Relationship Specialty Start Date End Date Clifton Hung MD [address] [place] [address] PCP - General Family Medicine 01/16/16 Renata Barnhart MD, [address] [facility] [place] [address] Physician Radiation Oncology 04/25/21 Interventional Physician Relationship Specialty Start Date End Date Clifton Hung MD [address] [facility] [address] PCP - General Family Medicine 01/16/16 Renata Barnhart MD, [address] [facility] [place] [address] Physician Radiation Oncology 04/25/21 Interventional Physician Relationship Specialty Start Date End Date Clifton Hung MD [address] [place] [address] PCP - General Family Medicine 01/16/16 Renata Barnhart MD, [address] [facility] [place] [address] Physician Radiation Oncology 04/25/21 Interventional Physician Relationship Specialty Start Date End Date Clifton Hung MD [address] [facility] [place] [address] PCP - General Family Medicine 01/16/16 Renata Barnhart MD, [address] [facility] [place] [address] Physician Radiation Oncology 04/25/21 Interventional Physician Relationship Specialty Start Date End Date Clifton Hung MD [address] [place] [address] PCP - General Family Medicine 01/16/16 Renata Barnhart MD, [address] [place] [address] Physician Radiation Oncology 04/25/21 Interventional Physician Relationship Specialty Start Date End Date Clifton Hung MD [address] [facility] [place] [address] PCP - General Family Medicine 01/16/16 Renata Barnhart MD, [address] [facility] [place] [address] Physician Radiation Oncology 04/25/21 Interventional Physician Relationship Specialty Start Date End Date Clifton Hung MD [address] [facility] [place] [address] PCP - General Family Medicine 01/16/16 Renata Barnhart MD, [address] [facility] [place] [address] Physician Radiation Oncology 04/25/21 Interventional Physician Relationship Specialty Start Date End Date Clifton Hung MD [address] [facility] [place] [address] PCP - General Family Medicine 01/16/16 Renata Barnhart MD, [address] [place] [address] Physician Radiation Oncology 04/25/21 Interventional Physician Relationship Specialty Start Date End Date Clifton Hung MD [address] [facility] [place] [address] PCP - General Family Medicine 01/16/16 Renata Barnhart MD, [address] [facility] [place] [address] Physician Radiation Oncology 04/25/21 Interventional Physician Relationship Specialty Start Date End Date Clifton Hung MD [address] [place] [address] PCP - General Family Medicine 01/16/16 Renata Barnhart MD, [address] [place] [address] Physician Radiation Oncology 04/25/21 Interventional Physician Relationship Specialty Start Date End Date Clifton Hung MD [address] [place] [address] PCP - General Family Medicine 01/16/16 Renata Barnhart MD, [address] [place] [address] Physician Radiation Oncology 04/25/21 Interventional Physician Relationship Specialty Start Date End Date Clifton Hung MD [address] [place] [address] PCP - General Family Medicine 01/16/16 Renata Barnhart MD, [address] [place] [address] Physician Radiation Oncology 04/25/21 Interventional Physician Relationship Specialty Start Date End Date Clifton Hung MD [address] [place] [address] PCP - General Family Medicine 01/16/16 Renata Barnhart MD, MD [address] [place] [address] Physician Radiation Oncology 04/25/21 Interventional Physician Relationship Specialty Start Date End Date Clifton Hung MD [address] [place] [address] PCP - General Family Medicine 01/16/16 Renata Barnhart MD, [address] [place] [address] Physician Radiation Oncology 04/25/21 Interventional Physician Relationship Specialty Start Date End Date Clifton Hung MD [address] [place] [address] PCP - General Family Medicine 01/16/16 Renata Barnhart MD, [address] [place] [address] Physician Radiation Oncology 04/25/21 Interventional Physician Relationship Specialty Start Date End Date Clifton Hung MD [address] [facility] [address] PCP - General Family Medicine 01/16/16 Renata Barnhart MD, [address] [place] [address] Physician Radiation Oncology 04/25/21 Interventional Physician Relationship Specialty Start Date End Date Clifton Hung MD [address] [facility] [place] [address] PCP - General Family Medicine 01/16/16 Renata Barnhart MD, [address] [address] Physician Radiation Oncology 04/25/21 Interventional Physician Relationship Specialty Start Date End Date Clifton Hung MD [address] [facility] [place] [address] PCP - General Family Medicine 01/16/16 Renata Barnhart MD, [address] [place] [address] Physician Radiation Oncology 04/25/21 Interventional Physician Relationship Specialty Start Date End Date Clifton Hung MD [address] [place] [address] PCP - General Family Medicine 01/16/16 Renata Barnhart MD, [address] [place] [address] Physician Radiation Oncology 04/25/21 Interventional Physician Relationship Specialty Start Date End Date Clifton Hung MD [address] [place] [address] PCP - General Family Medicine 01/16/16 Renata Barnhart MD, [address] [place] [address] Physician Radiation Oncology 04/25/21 Interventional Physician Relationship Specialty Start Date End Date Clifton Hung MD [address] [place] [address] PCP - General Family Medicine 01/16/16 Renata Barnhart MD, [address] [place] [address] Physician Radiation Oncology 04/25/21 Interventional Physician Relationship Specialty Start Date End Date Clifton Hung MD [address] [place] [address] PCP - General Family Medicine 01/16/16 Renata Barnhart MD, [address] [place] [address] Physician Radiation Oncology 04/25/21 Interventional Physician Relationship Specialty Start Date End Date Clifton Hung MD [address] [facility] [place] [address] PCP - General Family Medicine 01/16/16 Renata Barnhart MD, [address] [place] [address] Physician Radiation Oncology 04/25/21 Interventional Physician Relationship Specialty Start Date End Date Clifton Hung MD [address] [facility] [place] [address] PCP - General Family Medicine 01/16/16 Renata Barnhart MD [address] [place] [address] Physician Radiation Oncology 04/25/21 Interventional Physician Relationship Specialty Start Date End Date Clifton Hung MD [address] [facility] [place] [address] PCP - General Family Medicine 01/16/16 Renata Barnhart MD [address] [place] [address] Physician Radiation Oncology 04/25/21 INFORMATION SOURCE (unrecogn ized section and content) DATE CREATED AUTHOR AUTHOR'S ORGANIZ ATION 12/29/2023 [facility] FOR RECORDS PERTAINING TO PATIENTS WHO [...] BE BASED ON THE PRIMARY CLINICAL RECORDS. [facility] [employer] [facility]. provides no warranty or guarantee of the accuracy or completeness of information in this document.
== END | disposition home or self-care (01) ==
PROVIDERS: PCP Family Medicine; Referring Provider Internal Medicine Gastroenterology; Visit Provider Internal Medicine Gastroenterology
DX: R97.8 Other abnormal tumor markers (principal); R74.8 Abnormal levels of other serum enzymes
CPT/HCPCS: 74181

== ENCOUNTER → 2024-06-05 | Outpatient (CLI) | payer MEDICARE, SELFPAY ==
[2017-01-04 15:17] VITALS: BMI 30.1
[2024-06-05 16:03] LABS: Absolute Lymphocyte Count 1.78 X10^3/uL (0.83-4.51); Absolute Neutrophil Count 2.5 X10^3/uL (2.0-7.7); Basophil# 0.02 X10^3/uL; Basophil% 0.4 % (0-1); Eosinophil# 0.04 X10^3/uL; Eosinophils% 0.8 % (0-5); Hematocrit 34.7 % (37-47); Hemoglobin 11.2 g/dL (12.0-15.0); Lymphocyte # 1.78 X10^3/ul (0.83-4.51); Lymphocyte % 37.6 % (19-41); Mean Corp Hgb Conc 32.3 g/dL (32-36); Mean Corpuscular Hgb 29.9 pg (27.0-32.0); Mean Corpuscular Volume 92.5 fL (81-99); Mean Platelet Vol. 10.1 fl (6.2-12.0); Monocyte# 0.38 X10^3/uL; NRBC Flagged by Analyzer 0 % (0-5); Neutrophil % 52.8 % (47-70); Platelet Count 186 K/mm3 (150-450); RBC Distribution Width CV 13.6 % (11.6-14.6); RBC Distribution Width SD 46.4 fl (35.1-43.9); Red Blood Count 3.75 M/mm3 (4.2-5.4); White Blood Count 4.7 K/mm3 (4.4-11.0)
[2024-06-05 16:14] LABS: Erythrocyte Sedimentation Rate < 1 mm/hr (0-30)
[2024-06-05 16:38] LABS: ALB/GLOB Ratio 0.9 RATIO (0.9-2.4); AST(SGOT) 16 U/L (15-37); Alanine Aminotransfer ALT/SGPT 15 U/L (13-56); Albumin, Serum 3.1 g/dL (3.2-5.0); Alkaline Phosphatase 37 U/L (45-117); Amylase 52 U/L (25-115); Anion Gap 3 (5-15); BUN 15 mg/dL (7-18); BUN/Creat Ratio 18.3 RATIO (10-20); CRP < 2.90 mg/L (0.0-3.0); Calcium,Total 8.3 mg/dL (8.5-10.1); Chloride 108 mmol/L (98-107); Creatinine, Serum 0.82 mg/dL (0.55-1.02); EST Glomerular Filtration Rate 74 mL/min (>60); Est Glom Filt Rate - Afr Amer 89 mL/min (>60); Globulin 3.4 g/dL (2.2-4.2); Glucose 158 mg/dL (74-106); Lipase 109 U/L (13-75); Potassium 3.3 mmol/L (3.5-5.1); Protein, Total 6.5 g/dL (6.4-8.2); Sodium Level 140 mmol/L (136-145)
[2024-06-27 19:07] LABS: ACCA 18 units (0-90); ALCA 4 units (0-60); ALDOSTERONE/RENIN RATIO 2.3 (0.0-30.0); AMCA 22 units (0-100); Albumin 3.6 g/dL (2.9-4.4); Aldosterone, Serum 3.4 ng/dL (0.0-30.0); Alpha-1-Globulins 0.3 g/dL (0.0-0.4); Alpha-2-Globulins 0.6 g/dL (0.4-1.0); Carbohydrate Ag 19-9 2261 28 U/mL (0-35); Gamma Globulin 1.1 g/dL (0.4-1.8); IMMUNOFIXATION RESULT,S Comment: (.); IgG, Quant 1152 mg/dL (586-1602); Immunoglobulin A 164 mg/dL (87-352); Immunoglobulin E 3 IU/mL (6-495); Immunoglobulin G, Subclass 1 726 mg/dL (248-810); Immunoglobulin G, Subclass 2 165 mg/dL (130-555); Immunoglobulin G, Subclass 3 90 mg/dL (15-102); Immunoglobulin G, Subclass 4 7 mg/dL (2-96); Immunoglobulin M 54 mg/dL (26-217); PROEL- TOTAL PROTEIN 6.3 g/dL (6.0-8.5); gASCA 22 units (0-50)
== END | disposition home or self-care (01) ==
LOC: LAB 14:36
PROVIDERS: PCP Family Medicine; Referring Provider Internal Medicine Gastroenterology; Visit Provider Internal Medicine Gastroenterology
DX: R97.8 Other abnormal tumor markers (principal)
CPT/HCPCS: 36415; 80053; 82024; 82088; 82150; 82533; 82784; 82785; 82787; 83516; 83690; 84165; 84244; 85025; 85652; 86036; 86140; 86301; 86334; 86671

== ENCOUNTER → 2024-06-06 | Outpatient (CLI) | payer MEDICARE, SELFPAY ==
[2017-01-04 15:17] VITALS: BMI 30.1
[2024-06-08 16:10] LABS: Pancreatic Elastase, Fecal > 800 (>200)
[2024-06-14 01:07] LABS: Calprotectin, Stool 111 ug/g (0-120); Fats, Neutral Normal (.); Fats, Total Normal (.)
== END | disposition home or self-care (01) ==
LOC: LABSPEC 08:56
PROVIDERS: PCP Family Medicine; Referring Provider Internal Medicine Gastroenterology; Visit Provider Internal Medicine Gastroenterology
DX: K58.9 Irritable bowel syndrome, unspecified (principal); R97.8 Other abnormal tumor markers
CPT/HCPCS: 82653; 82705; 83630; 83993; 87177; 87209; 87329

== ENCOUNTER 2024-06-19 09:27 | Day surgery (SDC) | payer MEDICARE, SELFPAY ==
[2017-01-04 15:17] VITALS: BMI 30.1
[2024-06-19] VITALS (9 sets, daily range): BP systolic 85–173; BP diastolic 53–79; PULSE 57–74; RESP 16–18; TEMP 36.1–36.6; O2SAT 97–99; BMI 24.5
--- NOTE | 2024-06-19 | COLBX_PTH ---
PATIENT: DOM BARBA LOC: EN U#:[id number] AGE/SX: 68/F ROOM: RE06/19/[address]: Dr. Carson Alcantar DO : 1955 BED: DIS: 06/19/2024 SPEC #: [id number] RECD: 06/19/24 15:37 STATUS: SOL JONATAN #: [id number] ROMEL: 06/19/24 00:[address]: Carson Alcantar DEPT: SURGICAL PATHOLOGY RECD BY: Erwin Wallis ENTERED: 06/20/24 06:58 SP TYPE: COLON BX OTHR DR: Dr. Clifton Jennings MD Tissues: A - Duodenum, NOS B - Gastric mucous membrane C - Iliac crest D - COLON BIOPSY Procedures: Surgery Specimen Level IV HEADER OPERATION: Colonoscopy with biopsy, EGD with biopsy PRE-OP DIAGNOSIS: Elevated CA19-9 level, diarrhea TISSUE SUBMITTED: A- Duodenum biopsy, B- Gastric body biopsy, C- Terminal ileum biopsy, D- Random colon biopsy MICROSCOPIC DIAGNOSIS A. Duodenum, biopsy: Fragments of small intestinal mucosa, no pathologic diagnosis. B. Gastric body, biopsy: Mild gastritis. See microscopic description and comment. C. Terminal ileum, biopsy: Fragments of small intestinal mucosa, no pathologic diagnosis. D. Colon, random biopsy: Fragments of colonic mucosa, no pathologic diagnosis. JESSICA/ 06/21/2024 COMMENT B. The results of immunohistochemistry for Helicobacter pylori will be reported separately ([id number]). MICROSCOPIC DESCRIPTION Slides are reviewed. B. The specimen shows fragments of gastric mucosa with chronic inflammatory cell infiltrates in the lamina propria consisting of lymphocytes and plasma cells, consistent with mild chronic gastritis. GROSS DESCRIPTION A. Received in fixative is one container labeled with the patient's name and designated Duodenum biopsy. The specimen consists of multiple irregular fragments of light jaramillo soft tissue that in aggregate measure 1.5 x 0.3 x 0.1 cm. The specimen is totally submitted in one cassette. B. Received in fixative is one container labeled with the patient's name and designated Gastric body biopsy. The specimen consists of two irregular fragments of light jaramillo soft tissue that in aggregate measure 1.0 x 0.3 x 0.1 cm. The specimen is totally submitted in one cassette. C. Received in fixative is one container labeled with the patient's name and designated Terminal ileum biopsy. The specimen consists of multiple irregular fragments of light jaramillo soft tissue that in aggregate measure 0.8 x 0.5 x 0.1 cm. The specimen is totally submitted in one cassette. D. Received in fixative is one container labeled with the patient's name and designated Random colon biopsy. The specimen consists of multiple irregular fragments of light jaramillo soft tissue that in aggregate measure 2.5 x 0.6 x 0.1 cm. The specimen is totally submitted in one cassette. Domingo 06/20/2024 TC:3 CPT:29657a6
[2024-06-19] MEDS: Lactated Ringers 1,000 ML 15 ML IV (10:05)
[2024-06-19 10:25] LABS: Bedside Glucose 150 mg/dL (74-106)
--- NOTE | 2024-06-19 10:30 | PCM.HP.BLA ---
History and Physical Date of Admission: 06/19/24 DOM BARBA, is a 68 F who presents to the office today for follow up. Prior workup: Biochemical [facility] CBC (hgb 13.5, platelet 252), amylase 74, lipase H133. US RUQ 11.2.[address] abd/pel 11.8.22 hepatic lesion, subcentimeter hypodense, too small to characterize. *BGI established 11.19.22 with referral from PCP. Nausea and reflux have been an issue for several months. Dicyclomine and famotidine PRN. Biochemical amylase, CA19-9, CMP, ESR, CBC, celiac, LDH without pertinent abnormality. LFT AST L13-ALT 21-AP L40, CRP H8.32, lipase H490 Stool studies fecal fat, elastase WNL EGD/colonoscopy 12.01.22 EGD irregular Zline 37cm; esophagitis without metaplasia; gastritis; duodenum without abnormality. H.Pylori negative. Colonoscopy diverticulosis; congested mucosa RS colon through hepatic flexure. No pathologic changes. Contact 3.01.28 with continued constipation. Start lactulose. OV 5..23 continue Creon. Recommend ongoing surveillance for pancreatic cancer due to FH OV 1..24 Lactulose PRN continues and with this she is able to have a BM most days of the week. Otherwise feels well. MRCP 2..24 No evidence of a pancreatic mass. Normal MRI of the upper abdomen status post cholecystectomy OV 7.29.24 pt reports occasional nausea when she eats something she shouldn't. Alternating diarrhea and constipation. Pt reports increased difficulty swallowing certain solids. ROS Const Constitutional: Positive for fatigue; No fever(s) or weight change ENT ENT: Positive for difficulty swallowing Gastro GI: Positive for abdominal pain, bloating, constipation, diarrhea, heartburn, difficulty swallowing, excessive flatus, Blood in stool and nausea/dyspepsia; No belching, change in bowel habits, change in stool character, coffee ground emesis, cramping, feeling full early, incontinent of stools, Vomiting blood/hematemesis, loose stools, Black,tarry stools, pain with swallowing, vomiting or other Musc Musculoskeletal: Positive for joint pain, muscle cramps and Arthritis Skin Skin: Positive for dry skin; No yellowing of the eye or itchy eyes Psych Psychiatric: No anxiety and No depression Endo Endocrine: Positive for fatigue; No weight change Aller/Imm Allergy/Immunologic: No itchy eyes Skyler/Lymp Hematologic/Lymphatic: Positive for easy bruising; No easy bleeding Exam Const General: cooperative, healthy appearing and comfortable Nutritional Appearance: average body habitus Orientation: alert, awake and oriented x3 Assessment and Plan Assessment and Plan (1) Elevated CA 19-9 level: Status: Acute (2) Diarrhea: Status: Chronic Plan: Continue Creon, very effective, no longer having any abd pain or diarrhea. She did have another episode of abdominal pain cramping and diarrhea that I suspect is secondary to IBS with diarrhea and not secondary to exocrine pancreatic insufficiency. She will undergo an upper and lower endoscopy to evaluate upper lower GI tract. She does have a family history of pancreatic cancer in her mother. Repeat CA 19-9 and her last MRI did not show any abnormalities in her pancreas so we will repeat that in approximately 6 months. (3) Elevated lipase: Status: Chronic Plan: Check labs including CA 19-9 Recommendations: -EGD and colonoscopy -Check CA 19-9 -Check amylase lipase -Continue sulcra fate and dicyclomine Orders: Orders CORTISOL SERUM Today R97.8 - Other abnormal tumor markers Erythrocyte Sed Rate Today R97.8 - Other abnormal tumor markers CRP Today R97.8 - Other abnormal tumor markers Amylase Today R97.8 - Other abnormal tumor markers Lipase Today R97.8 - Other abnormal tumor markers CA 19-9 Serial Monitor Today R97.8 - Other abnormal tumor markers Comprehensive Metabolic Profil Today R97.8 - Other abnormal tumor markers IgG Subclasses Today R97.8 - Other abnormal tumor markers Immunoglobulins G/A/M/E Today R97.8 - Other abnormal tumor markers IBD Expanded Profile Today R97.8 - Other abnormal tumor markers Adrenocorticotropic Hormone Today R97.8 - Other abnormal tumor markers Renin/Aldosterone Activity Today R97.8 - Other abnormal tumor markers CBC W/Diff, Automated Today D64.9 - Anemia, unspecified, R97.8 - Other abnormal tumor markers MANUEL + Protein Elect, Serum Today R97.8 - Other abnormal tumor markers Calprotectin, Stool Today R97.8 - Other abnormal tumor markers Pancreatic Elastase, Fecal Today R97.8 - Other abnormal tumor markers Fecal Fat, Qualitative Today R97.8 - Other abnormal tumor markers OVA+PARA w/Giardia I have examined the patient and the H&P has been reviewed. There are no clinical changes since date of exam.
--- NOTE | 2024-06-19 10:47 | PCM.PRE.AN2 ---
ASA Classification* ASA Classification ASA Classification: 3 Assessment & Plan Anesthesia* Anesthesia Assessment Anesthesia Assessment: Discussed sedation and/or anesthesia options, risks, benefits, and alternatives with patient/parents/legal guardian/POA. Questions invited. The patient/parents/legal guardian/POA seems to understand and agrees to proceed with anesthesia plan. Reviewed the physical assessment, medical history, allergy history and patient home medications list prior to surgery/procedure/anesthetic and documented any changes. Performed airway and anesthesia risk assessments. Anesthesia Type Anesthesia Type: MAC History Source History Obtained from:: Patient and Chart Anesthesia Focused Assessment* Temperature: 97.0 F Pulse Rate: 57 Blood Pressure: 173/79 Respiratory Rate: 16 Pulse Ox: 99 Oxygen Delivery Method: Room Air Airway Assessment Mouth opens: >3 cm Mallampati Score: II Teeth Condition: Caps/Crowns (2 caps on molars both tight) Neck Range of motion (ROM): Full ROM Pertinent Findings EKG Pertinent Findings:: October 06, 2018. Sinus rhythm. Nonspecific ST changes. Stress Test Pertinent Findings:: June 2022. Negative stress test. Ejection fraction 60%. ECHO Pertinent Findings:: September 16, 2021. Ejection fraction 60%. Occasional PVCs. Cath Results Pertinent Findings:: October 12, 2018. LAD with proximal stents. Ejection fraction 65%. Consults Pertinent Findings:: September 03, 2022. Seen by cardiology. Patient status post stents and hypertension & palpitations. No changes to management. Focused Labs Anesthesia Preop lab: CBC WBC 4.7 K/mm3 (4.4-11.0) 06/05/24 14:49 RBC 3.75 M/mm3 (4.2-5.4) L 06/05/24 14:49 Hgb 11.2 g/dL (12.0-15.0) L 06/05/24 14:49 Hct 34.7 % (37-47) L 06/05/24 14:49 Plt Count 186 K/mm3 (150-450) 06/05/24 14:49 CHEMISTRY Potassium 3.3 mmol/L (3.5-5.1) L 06/05/24 14:49 Sodium 140 mmol/L (136-145) 06/05/24 14:49 Magnesium 2.0 mg/dL (1.6-2.6) 05/28/22 15:12 BUN 15 mg/dL (7-18) 06/05/24 14:49 Creatinine 0.82 mg/dL (0.55-1.02) 06/05/24 14:49 Glucose 158 mg/dL (74-106) H 06/05/24 14:49 POC Glucose 150 mg/dL (74-106) H 06/19/24 10:01 TSH 2.35 uIU/mL (0.358-3.74) 05/28/22 15:12 COAG PT 12.6 SECONDS (11.7-14.9) 10/06/18 14:34 Pre-Assessment Diagnosis/Proposed Procedure Planned Operative Procedure(s): egd, cscope Anesthesia History Anesthesia History - manager of 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 When Was Last Pacemaker Check QUESTION #4 FULL TEXT: You/Your Family Experience fever (hyperthermia) with Anesthesia Last Oral Intake Last Oral intake: Last Oral Intake NPO since 07:00 06/19/24 09:57 Meds taken in AM with sips of Yes 06/19/24 09:57 water? Meds patient instructed to see medlist 06/19/24 09:57 take am of surgery PONV PONV - manager of training: PONV - manager of training Female Yes 06/14/24 09:31 HX of Motion Sickness Yes 06/14/24 09:31 HX of N/V After Surgery Yes 06/14/24 09:31 Non-Smoker Yes 06/14/24 09:31 Duration of Surgery greater No 06/14/24 09:31 than 60 minutes Number of Risk Factors 4 06/14/24 09:31 PONV Score Severe Risk 06/14/24 09:31 Height & Weight Height & Weight: Anesthesia: Height & Weight Height 5 ft 3 in 06/19/24 09:57 Weight: 63 kg 06/19/24 09:57 Body Mass Index (BMI) 24.5 06/19/24 09:57 Respiratory Assessment Respiratory Assessment - manager of training: Respiratory Tract Infection Hx - manager of training Hx Respiratory Tract Infection No 06/14/24 09:31 STOP Sleep Apnea STOP Sleep Apnea - manager of training: STOP Sleep Apnea - manager of training Hx Hypertension Yes: controlled with med 06/14/24 09:31 Hx Sleep Apnea Yes 06/14/24 09:31 CPAP Yes: noncompliant 06/14/24 09:31 BIPAP No 06/14/24 09:31 Do you snore loudly (louder than talking or can be heard Do you often feel tired/ fatigued/ sleepy during daytime? Has anyone observed you stop breathing during sleep? STOP Results Positive 06/14/24 09:31 QUESTION #5 FULL TEXT : Do you snore loudly (louder than talking or can be heard through closed doors)? 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 Specify any problems Hx of Preganancy in last 3 N/A 06/14/24 09:31 Months Nurse Filling Out Transfusion NBUCHER 06/14/24 09:31 & Questions: Date: 06/14/24 06/14/24 09:31 Time: 09:33 06/14/24 09:31 Patient unable to answer at this time (ie. confused, unrespo /Reproduction History /Reproductive History - manager of training: /Reproductive Hx- manager of training Hx Now No 06/14/24 09:31 Gestational Age (in weeks): EDC: Hx Hx Para Hx Section SAB No 06/14/24 09:31 Active Medications Active Medications: Current Medications Generic Name Dose Route Start Last Admin Trade Name Freq PRN Reason Stop Dose Admin Lactated Ringer's 1,000 mls @ 15 mls/hr 06/19/24 09:45 06/19/24 10:05 IV 15 mls/hr .Q48H MAYRA Administration PFSH Medical History History of stress test PONV (postoperative nausea and vomiting) COVID-19 (~10/2022) Loss of hearing Anxiety Discoloration of skin Injury of head and neck Dietary restriction Hx of gastritis Gastric reflux Shortness of breath on exertion Leg cramps History of pain when walking Heart palpitations Cardiology follow-up encounter Epigastric pain Vitamin D deficiency Rosacea Psoriasis IBS (irritable bowel syndrome) History of TIA (transient ischemic attack) Colon polyp Nausea Breast cancer, left Wears glasses Arthritis Easy bruising Excessive bleeding Former smoker CPAP (continuous positive airway pressure) dependence Hx of cardiovascular stress test (~09/13/18) Hx of echocardiogram (~06/30/17) Mixed hyperlipidemia Presence of stent in coronary artery (~01/05/17) Menieres disease Encounter for long-term (current) use of other medications Atherosclerotic heart disease of [place] coronary artery without angina pectoris Cardiovascular stress test abnormal Chest pain Home Medications ?Medication ?Instructions ?Recorded ?Last Taken ?Type L.acidoph, paracasei,B. lactis 10 1 ea PO QHS 09/23/16 06/28/17 History billion cell capsule montelukast 10 mg tablet 10 mg PO QPM 08/22/18 Unknown History coenzyme Q10 100 mg capsule 100 mg PO DAILY 08/23/19 Unknown History metformin 500 mg 24 hr 1,000 mg PO BID 11/24/21 Unknown History tablet,extended release (gastric retention) tamoxifen 20 mg tablet 20 mg PO DAILY 11/24/21 Unknown History doxycycline monohydrate 50 mg 50 mg PO DAILY PRN Skin 05/28/22 Unknown History capsule clobetasol 0.05 % topical gel 1 applic topical DAILY PRN Skin 09/03/22 Unknown History Cleansing omeprazole 40 mg capsule,delayed 40 mg PO DAILY 11/30/22 Unknown History release acsnqb-sataakzr-ycojiys See Rx Instructions PO .COMPLEX 03/04/23 Unknown Rx 36,000-114,000-180,000 unit #56 caps capsule,delay rel (Creon) Handicap Placard #1 ea 08/30/23 Unknown Rx calcium citrate 315 mg 2 tab PO DAILY 08/30/23 Unknown History calcium-vitamin D3 6.25 mcg (250 unit) tablet ezetimibe 10 mg tablet (Zetia) 10 mg PO DAILY 08/30/23 Unknown History ketoconazole 2 % shampoo 1 applic topical QODAY 08/30/23 Unknown History lactulose 10 gram/15 mL oral 15 ml PO DAILY PRN constipation 11/03/23 Unknown Rx solution #473 mL metoprolol tartrate 25 mg tablet 25 mg PO BID #180 tabs 01/27/24 06/19/24 Rx nitroglycerin 0.4 mg sublingual 0.4 mg sublingual Q5M PRN Chest 03/03/24 Unknown Rx tablet Pain #25 tabs ammonium lactate 12 % lotion 1 applic topical PRN PRN dry skin 04/21/24 Unknown History cholecalciferol (vitamin D3) 125 125 mcg PO DAILY 04/21/24 Unknown History mcg (5,000 unit) tablet estradiol 0.01% (0.1 mg/gram) 1 g vaginal .2xweek 04/21/24 Unknown History vaginal cream lisinopril 40 mg tablet 40 mg PO DAILY #90 tabs 04/21/24 06/19/24 Rx pioglitazone 15 mg tablet 15 mg PO QDAY 04/21/24 Unknown History dicyclomine 20 mg tablet 20 mg PO TID #90 tabs 06/02/24 Unknown Rx sucralfate 1 gram tablet (Carafate) 1 g PO QAC #90 tabs 06/02/24 Unknown Rx Allergy/AdvReac Type Severity Reaction Status Date / Time lovastatin Allergy Intermediate Other Verified 06/19/24 09:56 rosuvastatin (From Crestor) Allergy Intermediate Other Verified 06/19/24 09:56 ticagrelor (From Brilinta) Allergy Intermediate Shortness Verified 06/19/24 09:56 of breath atorvastatin Allergy Unknown myalgia Verified 06/19/24 09:56 hydrocodone Allergy Hives Verified 06/19/24 09:56 cephalexin monohydrate (From AdvReac Other Verified 06/14/24 09:27 Keflex) pravastatin AdvReac myalgias Verified 06/19/24 09:56 Family History Mother Cancer pancreatic cancer Father , [place] age 20's (premature CAD), 3 vessel CABG, hyperlipidemia, CHf Myocardial infarction CAD (coronary artery disease) Brother Cancer lung cancer Surgical History History of bilateral cataract extraction History of detached retina repair (~04/2023) Hx of release of tendon (~01/13/23) History of bunionectomy of left great toe History of lumpectomy of left breast Ductal carcinoma in situ (DCIS) of left breast History of cardiac catheterization (~10/12/18) History of coronary artery stent placement (~12/30/16) Status post trigger finger release History of carpal tunnel release of both wrists Hx of foot surgery Status post lumbar spine operative procedure for decompression of spinal cord Status post excision of lipoma (~11/2018) History of section History of parathyroidectomy History of cholecystectomy History of hysterectomy Social History household members: spouse housing: house current occupational status: employed Smoking Status: Former smoker quit date: 11/08/87 pack-years: 6 how long ago did patient quit smokin second hand exposure: Yes alcohol intake: never substance use type: does not use caffeine: Yes Type: coffee Number of servings: 2 what type of physical activity do you participate in: none seatbelt use: always do you feel safe at home: Yes Review of Systems (Anesthesia) ROS Narrative System reviewed and no additional complaints, except as documented.
--- NOTE | 2024-06-19 11:00 | IMM_PTH ---
PATIENT: DOM BARBA LOC: EN U#:[id number] AGE/SX: 68/F ROOM: RE06/19/[address]: Dr. Carson Alcantar DO : 1955 BED: DIS: 06/19/2024 SPEC #: [id number] RECD: 06/19/24 15:54 STATUS: SOL REQ #: [id number] ROMEL: 06/19/24 11:[address]: Carson Alcantar DEPT: IMMUNOHISTOCHEMISTRY RECD BY: Gaetano Nina ENTERED: 06/19/24 15:54 SP TYPE: IMMUNO OTHR DR: Dr. Clifton Jennings MD Tissues: B - Gastric mucous membrane Procedures: H Pylori (initial) PHYSICIAN & INSTITUTION [place] [address] SPECIMEN INFORMATION: Tissue Source: B- Gastric body biopsy Clinical Info: Elevated CA 19-9 level, diarrhea Specimen Number: [id number] CPT code: 40941 METHODOLOGY: Deparaffinized sections of prefer/formalin-fixed tissue or PAP/DQ stained slides are incubated with monoclonal/polyclonal antibodies/oligonucleotide probes. Localization is made via biotin free immunoperoxidase method. Appropriate controls are performed and reacted as expected. Results on target cell population are indicated in the following table: RESULTS: ANTIBODY / CLONE RESULT Block B H Pylori (polyclonal) negative These tests were developed and their performance characteristics determined by [facility]. They may not have been cleared or approved by the U.S. Food and Drug Administration. The FDA has determined that such clearance or approval is not necessary. The above immunohistochemical/dualISH markers are ordered and reviewed by the Pathologist. INTERPRETATION: B. Gastric body, biopsy: Negative for Helicobacter pylori organisms. 06/30/2024
--- NOTE | 2024-06-19 11:36 | OP.EGD_ITS ---
Patient Name: Luz Marina Avila Procedure Date: 06/19/2024 11:05 AM Date of : 1955 Age: 68 Procedure: Upper GI endoscopy Indications: Epigastric abdominal pain, Functional Dyspepsia Providers: Carson Alcantar DO Referring MD: Clifton Jennings MD Medicines: Monitored Anesthesia Care Patient Profile: This is a 68 year old female. Refer to note in patient chart for documentation of history and physical. Patient has symptoms of chronic abdominal cramping and chronic epigastric abdominal pain. Complications: No immediate complications. Procedure: Pre-Anesthesia Assessment: - Prior to the procedure, a History and Physical was performed, and patient medications and allergies were reviewed. The patient is competent. The risks and benefits of the procedure and the sedation options and risks were discussed with the patient. All questions were answered and informed consent was obtained. Patient identification and proposed procedure were verified by the physician in the pre-procedure area. Mental Status Examination: alert and oriented. Airway Examination: normal oropharyngeal airway and neck mobility. Respiratory Examination: clear to auscultation. CV Examination: normal. Prophylactic Antibiotics: The patient does not require prophylactic antibiotics. Prior Anticoagulants: The patient has taken no anticoagulant or antiplatelet agents except for NSAID medication. ASA Grade Assessment: II - A patient with mild systemic disease. After reviewing the risks and benefits, the patient was deemed in satisfactory condition to undergo the procedure. The anesthesia plan was to use monitored anesthesia care (MAC). Immediately prior to administration of medications, the patient was re-assessed for adequacy to receive sedatives. The heart rate, respiratory rate, oxygen saturations, blood pressure, adequacy of pulmonary ventilation, and response to care were monitored throughout the procedure. The physical status of the patient was re-assessed after the procedure. After obtaining informed consent, the endoscope was passed under direct vision. Throughout the procedure, the patient's blood pressure, pulse, and oxygen saturations were monitored continuously. The Colonoscope was introduced through the mouth, and advanced to the second part of duodenum. The upper GI endoscopy was accomplished without difficulty. The patient tolerated the procedure well. Scope In: 11:14:34 AM Scope Out: 11:17:41 AM Total Procedure Duration Time 0 hours 3 minutes 7 seconds Findings: The examined esophagus was normal. Patchy mildly erythematous mucosa without bleeding was found in the gastric body and in the gastric antrum. Biopsies were taken with a cold forceps for histology. Verification of patient identification for the specimen was done. Biopsies were taken with a cold forceps for Helicobacter pylori testing. Verification of patient identification for the specimen was done. Estimated blood loss was minimal. Patchy mildly erythematous mucosa without active bleeding and with no stigmata of bleeding was found in the first portion of the duodenum and in the second portion of the duodenum. Biopsies were taken with a cold forceps for histology. Verification of patient identification for the specimen was done. Estimated blood loss was minimal. Impression: - Normal esophagus. - Erythematous mucosa in the gastric body and antrum. Biopsied. - Erythematous duodenopathy. Biopsied. Recommendation: - Discharge patient to home. - Resume previous diet. - Continue present medications. - Await pathology results. Procedure Code(s): --- Professional --- 62514, Esophagogastroduodenoscopy, flexible, transoral; with biopsy, single or multiple CPT copyright 2021 [employer]. All rights reserved. The codes documented in this report are preliminary and upon slip cover seamstress review may be revised to meet current compliance requirements. Carson Alcantar DO 06/19/2024 11:36:11 AM This report has been signed electronically. Number of Addenda: 0 Note Initiated On: 06/19/2024 11:05 AM
--- NOTE | 2024-06-19 11:36 | OP.CCLET_ITS ---
06/19/2024 Clifton Jennings MD Re : Upper GI endoscopy procedure for Luz Marina Avila Dear Dr. Jennings This procedure was performed on Wednesday, June 19, 2024. My impressions and recommendations are as follows: Impressions : - Normal esophagus. - Erythematous mucosa in the gastric body and antrum. Biopsied. - Erythematous duodenopathy. Biopsied. Recommendations : - Discharge patient to home. - Resume previous diet. - Continue present medications. - Await pathology results. My findings are described in the full procedure note, which is enclosed. If I can be of further assistance, please feel free to contact me at . Sincerely, Carson Alcantar DO 06/19/2024 11:36:11 AM This report has been signed electronically.
--- NOTE | 2024-06-19 11:39 | OP.CCLET_ITS ---
06/19/2024 Clifton Jennings MD Re : Colonoscopy procedure for Luz Marina Avila Dear Dr. Jennings This procedure was performed on Wednesday, June 19, 2024. My impressions and recommendations are as follows: Impressions : - Congested mucosa in the sigmoid colon, in the transverse colon and in the ascending colon. Biopsied. - Diverticulosis in the sigmoid colon. - Congested mucosa in the terminal ileum. Biopsied. Recommendations : - Discharge patient to home. - Resume previous diet. - Continue present medications. - Await pathology results. - Repeat colonoscopy in 10 years for screening purposes. My findings are described in the full procedure note, which is enclosed. If I can be of further assistance, please feel free to contact me at . Sincerely, Carson Alcantar, 06/19/2024 11:39:02 AM This report has been signed electronically.
--- NOTE | 2024-06-19 11:39 | OP.COLON_ITS ---
Patient Name: Luz Marina Avila Procedure Date: 06/19/2024 11:18 AM Date of : 1955 Age: 68 Procedure: Colonoscopy Indications: Chronic diarrhea Providers: Carson Alcantar DO Referring MD: Clifton Jennings MD Medicines: Monitored Anesthesia Care Patient Profile: This is a 68 year old female. Refer to note in patient chart for documentation of history and physical. Patient has symptoms of chronic abdominal cramping and chronic epigastric abdominal pain. Last Colonoscopy: date unknown. Unable to locate last colonoscopy report. Complications: No immediate complications. Procedure: Pre-Anesthesia Assessment: - Prior to the procedure, a History and Physical was performed, and patient medications and allergies were reviewed. The patient is competent. The risks and benefits of the procedure and the sedation options and risks were discussed with the patient. All questions were answered and informed consent was obtained. Patient identification and proposed procedure were verified by the physician in the pre-procedure area. Mental Status Examination: alert and oriented. Airway Examination: normal oropharyngeal airway and neck mobility. Respiratory Examination: clear to auscultation. CV Examination: normal. Prophylactic Antibiotics: The patient does not require prophylactic antibiotics. Prior Anticoagulants: The patient has taken no anticoagulant or antiplatelet agents except for NSAID medication. ASA Grade Assessment: II - A patient with mild systemic disease. After reviewing the risks and benefits, the patient was deemed in satisfactory condition to undergo the procedure. The anesthesia plan was to use monitored anesthesia care (MAC). Immediately prior to administration of medications, the patient was re-assessed for adequacy to receive sedatives. The heart rate, respiratory rate, oxygen saturations, blood pressure, adequacy of pulmonary ventilation, and response to care were monitored throughout the procedure. The physical status of the patient was re-assessed after the procedure. After I obtained informed consent, the scope was passed under direct vision. Throughout the procedure, the patient's blood pressure, pulse, and oxygen saturations were monitored continuously. The Colonoscope was introduced through the anus and advanced to the terminal ileum. The colonoscopy was performed without difficulty. The patient tolerated the procedure well. The quality of the bowel preparation was adequate. The terminal ileum, ileocecal valve, appendiceal orifice, and rectum were photographed. Scope In: 11:18:59 AM Scope Withdrawal Time 0 hours 9 minutes 7 seconds Scope Out: 11:32:20 AM Total Procedure Duration Time 0 hours 13 minutes 21 seconds Findings: The perianal and digital rectal examinations were normal. An area of mildly congested mucosa was found in the sigmoid colon, in the transverse colon and in the ascending colon. Biopsies for histology were taken with a cold forceps from the entire colon for evaluation of microscopic colitis. Verification of patient identification for the specimen was done. Estimated blood loss was minimal. A few small-mouthed diverticula were found in the sigmoid colon. A patchy area of the terminal ileum was congested. Biopsies were taken with a cold forceps for histology. Verification of patient identification for the specimen was done. Estimated blood loss was minimal. Impression: - Congested mucosa in the sigmoid colon, in the transverse colon and in the ascending colon. Biopsied. - Diverticulosis in the sigmoid colon. - Congested mucosa in the terminal ileum. Biopsied. Recommendation: - Discharge patient to home. - Resume previous diet. - Continue present medications. - Await pathology results. - Repeat colonoscopy in 10 years for screening purposes. Procedure Code(s): --- Professional --- 73134, Colonoscopy, flexible; with biopsy, single or multiple CPT copyright 2021 [employer]. All rights reserved. The codes documented in this report are preliminary and upon performance management consultant review may be revised to meet current compliance requirements. Carson Alcantar DO 06/19/2024 11:39:02 AM This report has been signed electronically. Number of Addenda: 0 Note Initiated On: 06/19/2024 11:18 AM
--- NOTE | 2024-06-19 11:41 | PCM.POST.ANE ---
Anesthesia: Postop Eval I Current Vital Signs Temperature: 97.8 F Pulse Rate: 60 Blood Pressure: 85/54 Respiratory Rate: 16 Pulse Ox: 98 Oxygen Delivery Method: Room Air Assessment Airway patent: Yes Spontaneous unlabored respirations: Yes Mental status: Asleep nausea: No Vomiting: No Anesthesia Complication: No Fluid Hydration Crystalloid volume administer (ml): 700 Total IV fluid infused: 700 Progress Note Anesthesia document: Postop Eval 1 completed: Yes
--- NOTE | 2024-06-19 13:36 | PCM.POSTANE2 ---
Anesthesia Postop Eval I Sum Postop Eval Completion status Anesthesia document: Postop Eval 1 completed: Yes Anesthesia Postop Eval I Summary Anesthesia Postop Eval I Summary: Anesthesia Postop Eval I: Assessment Summary Airway patent Yes 06/19/24 11:42 [email or web address] Spontaneous unlabored Yes 06/19/24 11:42 [email or web address] respirations Mental status Asleep 06/19/24 11:42 [email or web address] nausea No 06/19/24 11:42 [email or web address] Vomiting No 06/19/24 11:42 [email or web address] Anesthesia Postop Eval I: Fluid Summary Crystalloid volume administer 700 06/19/24 11:42 [email or web address] (ml) Colloids volume administered ( ml) Blood Product volume administered (ml) Total IV fluid infused 700 06/19/24 11:42 [email or web address] Anesthesia Postop Eval I: Summary Notes Anesthesia Complication No 06/19/24 11:42 [email or web address] Anesthesia Complication Comment: Post-operative progress note Anesthesia: Postop Eval II Evaluation Mental status: Awake and Calm Pain Level: 0 nausea: No Vomiting: No Complications Anesthesia Complication: No
== END 2024-06-19 12:20 | disposition home or self-care (01) ==
LOC: EN 09:27 → AC 09:29
PROVIDERS: PCP Family Medicine; Referring Provider Family Medicine; Visit Provider Internal Medicine Gastroenterology
PROC: 0DJD8ZZ Inspection of Lower Intestinal Tract, Via Natural or Artificial Opening Endoscopic (ICD-10-PCS; CPT 45378; principal; 2024-06-19 10:55)
DX: K29.70 Gastritis, unspecified, without bleeding (principal); E11.9 Type 2 diabetes mellitus without complications; K52.9 Noninfective gastroenteritis and colitis, unspecified; K57.30 Diverticulosis of large intestine without perforation or abscess without bleeding; Z90.49 Acquired absence of other specified parts of digestive tract; R97.8 Other abnormal tumor markers; Z80.0 Family history of malignant neoplasm of digestive organs; Z79.899 Other long term (current) drug therapy; Z79.84 Long term (current) use of oral hypoglycemic drugs; I25.10 Atherosclerotic heart disease of native coronary artery without angina pectoris; I10 Essential (primary) hypertension; K21.9 Gastro-esophageal reflux disease without esophagitis; Z86.010 Personal history of colon polyps
CPT/HCPCS: 45380; 43239; 82962; 88305; 88342; J7120; J2405

== ENCOUNTER → 2024-06-23 | Outpatient (CLI) | payer MEDICARE, SELFPAY ==
[2017-01-04 15:17] VITALS: BMI 30.1
--- NOTE | 2024-06-23 18:14 | CT_ITS ---
STUDY: CT ABDOMEN AND PELVIS WITH AND WITHOUT CONTRAST REASON FOR EXAM: Female, 68 years old. breast cancer with radiation, diabetes, hysterectomy, cholecystectomy. RADIATION DOSAGE (If Supplied By Facility): CTDIvol = ( 11.62 ) mGy, DLP = ( 1027.99 ) mGycm TECHNIQUE: Transaxial images were obtained from the dome of the diaphragm to the symphysis pubis with oral contrast. ml of Readi-CAT and amp; 100mL Isovue-370 contrast was administered. Sagittal and coronal images were reconstructed. Individualized dose optimization techniques were used for this CT. COMPARISON: MRCP dated January 03, 2024 FINDINGS: The visualized lung bases are unremarkable. The visualized portions of the heart are within normal limits. Normal liver. There are surgical clips in the gallbladder fossa consistent with a prior cholecystectomy. Mild postcholecystectomy dilatation of the CBD 9.2 mm without a radiopaque stone or intraluminal lesion. Normal spleen. Normal pancreas. Normal bilateral adrenal glands. Redemonstration of multiple small bilateral renal cysts which do not requiring additional assessment. No hydronephrosis or renal masses are present. Normal visualized stomach. Normal small intestine. Normal colon. The appendix is visualized and appears normal. No bowel wall thickening is present. No visualized intraluminal bowel masses. No dilatation is present. Normal abdominal aorta. Normal inferior vena cava. Normal retroperitoneum. Normal urinary bladder. There is absence of the uterus consistent with a prior hysterectomy. Normal abdominal wall. There are diffuse degenerative changes of the visualized lumbar spine. CT/CT Abd/Pelvis W/WO Contrast IMPRESSION: 1. There are surgical clips in the gallbladder fossa consistent with a prior cholecystectomy. Mild postcholecystectomy dilatation of the CBD 9.2 mm without a radiopaque stone or intraluminal lesion. Electronically Signed: Justen Masters MD at 10:20 EDT ,
== END | disposition home or self-care (01) ==
PROVIDERS: PCP Family Medicine; Referring Provider Internal Medicine Gastroenterology; Visit Provider Internal Medicine Gastroenterology
DX: R97.8 Other abnormal tumor markers (principal); R74.8 Abnormal levels of other serum enzymes; R19.7 Diarrhea, unspecified
CPT/HCPCS: 74178; Q9967

== ENCOUNTER 2025-05-19 21:11 | Inpatient (IN) | payer MEDICARE, SELFPAY ==
[2017-01-04 15:17] VITALS: BMI 30.1
[2025-05-19 21:12] VITALS: BP 196/88; PULSE 74; RESP 18; TEMP 36.6; O2SAT 99; BMI 25.2
--- NOTE | 2025-05-19 21:48 | CT_ITS ---
PROCEDURE: ABDOMEN/PELVIS WITHOUT CONT 05/19/2025 REASON FOR EXAM: PAIN TECHNIQUE: ABDOMEN/PELVIS WITHOUT CONT Noncontrast technique limits evaluation of the abdominal and pelvic viscera. Coronal and Sagittal reconstruction series were provided. One or more dose reduction techniques were used (e.g., Automated exposure control, adjustment of the mA and/or kV according to patient size, use of iterative reconstruction technique). RADIATION DOSE SUMMARY: CTDlvol: 6.6 mGy DLP: 319 mGycm COMPARISON: CT abdomen and pelvis on 06/23/2024 FINDINGS: Lung bases: Unremarkable Liver: Unremarkable Gallbladder: Surgically absent. Spleen: Scattered calcifications suggestive of prior granulomatous disease. Pancreas: Normal size. No surrounding inflammation. Adrenals: Unremarkable Kidneys: No radiodense stone or hydronephrosis. Bladder: Unremarkable Reproductive Organs: Prior hysterectomy. Adnexal regions are unremarkable. Bowel: There are prominent loops of small bowel in the left mid abdomen with homa appearance of the mesentery and a small amount of fluid in the left paracolic gutter and pelvis. The colon traverses deep to these loops, new from prior. Appendix: Unremarkable Lymph nodes: No significant lymphadenopathy. Vasculature: Mild diffuse atherosclerotic calcifications are noted. Bones: Degenerative changes of the spine. Soft tissues: Unremarkable CT/Abdomen/Pelvis without Cont IMPRESSION: Mildly prominent loops of small bowel in the left lateral abdomen, peripheral t o the colon, and with associated mesenteric edema and free fluid. Combination of findings raises concern for developing small mary wel obstruction (for which internal hernia is possible). Additional considerations include enteritis or mesenteric ischemia. Correlate with symptoms and consider Surgical consultation. Reading Location: [id number]
[2025-05-19 21:50] LABS: Hematocrit 38.8 % (37-47); Hemoglobin 12.9 g/dL (12.0-15.0); Immature Granulocytes Count 0.010 X10^3/uL (0.0-0.0); Mean Corp Hgb Conc 33.2 g/dL (32-36); Mean Corpuscular Volume 92.6 fL (81-99); Mean Platelet Vol. 9.2 fl (6.2-12.0); NRBC Flagged by Analyzer 0 % (0-5); Platelet Count 198 K/mm3 (150-450); RBC Distribution Width CV 14.0 % (11.6-14.6); RBC Distribution Width SD 47.4 fl (35.1-43.9); Red Blood Count 4.19 M/mm3 (4.2-5.4); White Blood Count 5.9 K/mm3 (4.4-11.0)
[2025-05-19 21:53] LABS: Mucous, Urine 0 SEEN /hpf (<or=2+)
[2025-05-19] MEDS: 0.9% Normal Saline (1000mL) 1,000 ML 999 ML IV (21:57)
[2025-05-19 21:59] LABS: Color, Urine Yellow (Yellow); Glucose, Dipstick Normal (Normal); Ketone-Dipstick Negative (Negative); Leukocyte Esterase-Dipstick 500 /ul (Negative); Nitrite-Dipstick Negative (Negative); Occult Blood-Urine 10 /ul (Negative); Protein-Dipstick 30 mg/dl (Negative); Specific Gravity, Urine 1.010 (1.002-1.030); Urine Bilirubin Dipstick Negative (Negative)
--- NOTE | 2025-05-19 22:01 | EDS_ITS ---
HPI <Dr. Nik Skelton, DO - Last Filed: 05/21/25 08:33> HPI - GI History of Present Illness Chief Complaint: Abd Pain Informant: patient and spouse/S.O. Narrative Narrative: Here with spouse for evaluation sudden lower abdominal pain around 6:30 PM. She returned from [place] to the [facility] she ate too much food. History of pancreatic insufficiency with diabetes. Hysterectomy with in the past no other abdominal surgeries. No urinary symptoms however stated recently got over a UTI which she had dysuria. Denies history of kidney stones. She had nausea with vomiting on the way here. No hematemesis. No diarrhea. No bowel movement today, does typical for her not to have daily bowel movements. Denies fever chills or sweats. <Dr. Myles Bell, DO - Last Filed: 05/20/25 07:00> HPI - GI Narrative Narrative: Here with spouse for evaluation sudden lower abdominal pain around 6:30 PM. She returned from [place] to the [facility] she ate too much food. History of pancreatic insufficiency with diabetes. Hysterectomy with in the past no other abdominal surgeries. No urinary symptoms however stated recently got over a UTI which she had dysuria. Denies history of kidney stones. She had nausea with vomiting on the way here. No hematemesis. No diarrhea. No bowel movement today, does typical for her not to have daily bowel movements. Denies fever chills or sweats. [facility] <Dr. Nik Skelton, DO - Last Filed: 05/21/25 08:33> [facility] Medical History Diabetes Sleep apnea Hypertension History of stress test PONV (postoperative nausea and vomiting) COVID-19 (~10/2022) Loss of hearing Anxiety Discoloration of skin Injury of head and neck Dietary restriction Hx of gastritis Gastric reflux Shortness of breath on exertion Leg cramps History of pain when walking Heart palpitations Cardiology follow-up encounter Epigastric pain Vitamin D deficiency Rosacea Psoriasis IBS (irritable bowel syndrome) History of TIA (transient ischemic attack) Colon polyp Nausea Breast cancer, left Wears glasses Arthritis Easy bruising Excessive bleeding Former smoker CPAP (continuous positive airway pressure) dependence Hx of cardiovascular stress test (~09/13/18) Hx of echocardiogram (~06/30/17) Mixed hyperlipidemia Presence of stent in coronary artery (~01/05/17) [place]ie[place] disease Encounter for long-term (current) use of other medications Atherosclerotic heart disease of [place] coronary artery without angina pectoris Cardiovascular stress test abnormal Chest pain Home Medications ?Medication ?Instructions ?Recorded ?Last Taken ?Type L.acidoph,paracasei,B.animalis 10 1 ea PO QHS 09/23/16 06/28/17 History billion cell capsule montelukast 10 mg tablet 10 mg PO QPM 08/22/18 Unknow n History coenzyme Q10 100 mg capsule 100 mg PO DAILY 08/23/19 U nknown History metformin 500 mg 24 hr 500 mg PO BID 11/24/21 Unkno wn History tablet,extended release (gastric retention) tamoxifen 20 mg tablet 20 mg PO DAILY 11/24/21 Unkn own History doxycycline monohydrate 50 mg 50 mg PO DAILY PRN Skin 05/28/22 Unknown History capsule clobetasol 0.05 % topical gel 1 applic topical DAILY P RN Skin 09/03/22 Unknown History Cleansing omeprazole 40 mg capsule,delayed 40 mg PO DAILY Unknown History release Handicap Placard #1 ea 08/30/23 Unknown Rx calcium 315 mg (as 2 tab PO DAILY 08/30/23 Unkn own History citrate)-vitamin D3 6.25 mcg (250 unit) tablet ezetimibe 10 mg tablet (Zetia) 10 mg PO .HS cholestero l 08/30/23 Unknown History ketoconazole 2 % shampoo 1 applic topical QODAY 08/30 Unknown History lactulose 10 gram/15 mL oral 15 ml PO DAILY PRN consti pation 11/03/23 Unknown Rx solution #473 mL ammonium lactate 12 % lotion 1 applic topical PRN PRN dry skin 04/21/24 Unknown History estradiol 0.01% (0.1 mg/gram) 1 g vaginal .2xweek 04/08 03/01 Unknown History vaginal cream lisinopril 40 mg tablet 40 mg PO DAILY #90 tabs 04/0806/19/24 Rx pioglitazone 15 mg tablet 15 mg PO QDAY 04/21/24 Unkno wn History metoprolol tartrate 25 mg tablet 25 mg PO BID #180 tab s 12/04/24 Unknown Rx dicyclomine 20 mg tablet 20 mg PO TID PRN abdominal 0 12/11/24 Unknown Rx discomfort #90 TABLETS gesgob-[id number] 3 cap PO QAC #300 caps 12/27 Unknown Rx 36,000-114,000-180,000 unit capsule,delay rel (Creon) nitroglycerin 0.4 mg sublingual 0.4 mg sublingual Q5M PRN Chest 02/12/25 Unknown Rx tablet Pain #25 tabs amlodipine 5 mg tablet 2.5 mg PO BID 05/19/2505/19 History oxycodone 5 mg tablet 5 - 10 mg (1 - 2 x 5 mg) PO Q4H 05/21/25 Unknown Rx PRN PRN Pain Score 4-10 5 days #14 tabs Allergy/AdvReac Type Severity Reaction Status Date / Time lovastatin Allergy Intermediate Other Verified 05/19/25 21:13 rosuvastatin (From Crestor) Allergy Intermediate Other Verified 05/19/25 21:13 ticagrelor (From Brilinta) Allergy Intermediate Shortness Verified 05/19/25 21:13 of breath atorvastatin Allergy Unknown myalgia Verified 05/19/25 21:13 hydrocodone Allergy Hives Verified 05/19/25 21:13 cephalexin monohydrate (From AdvReac Other Verified 05/19/25 21:13 Keflex) pravastatin AdvReac myalgias Verified 05/19/25 21:13 Family History Mother Cancer pancreatic cancer Father , [place] age 20's (premature CAD), 3 vessel CABG, hyperlipidemia, CHf Myocardial infarction CAD (coronary artery disease) Brother Cancer lung cancer Surgical History History of bilateral cataract extraction History of detached retina repair (~04/2023) Hx of release of tendon (~01/13/23) History of bunionectomy of left great toe History of lumpectomy of left breast Ductal carcinoma in situ (DCIS) of left breast History of cardiac catheterization (~10/12/18) History of coronary artery stent placement (~12/30/16) Status post trigger finger release History of carpal tunnel release of both wrists Hx of foot surgery Status post lumbar spine operative procedure for decompression of spinal cord Status post excision of lipoma (~11/2018) History of section History of parathyroidectomy History of cholecystectomy History of hysterectomy Social History household members: spouse housing: house current occupational status: employed Smoking Status: Former smoker quit date: 11/08/87 pack-years: 6 how long ago did patient quit smokin second hand exposure: Yes alcohol intake: never substance use type: does not use caffeine: Yes Type: coffee Number of servings: 2 what type of physical activity do you participate in: none seatbelt use: always do you feel safe at home: Yes ROS <Dr. Nik Skelton, DO - Last Filed: 05/21/25 08:33> ROS ED Constitutional Constitutional ED: Denies chills, fever(s) or sweats ENT ENT ED: Denies sore throat Cardiovascular Cardiovascular: Denies chest pain, leg edema, palpitations or racing heartbeat Respiratory/Chest Respiratory/Chest: Denies cough, dyspnea or dyspnea on exertion Gastrointestinal Gastrointestinal: Reports abdominal pain, nausea and vomiting; Denies diarrhea Genitourinary Genitourinary ED: Denies dysuria, hematuria or urinary frequency Musculoskeletal Musculoskeletal: Denies back pain, extremity pain or neck pain Integumentary Denies rash or wounds Neurologic Neurologic: Denies headache(s), paresthesias or weakness EXAM <Dr. Nik Skelton, DO - Last Filed: 05/21/25 08:33> Physical Exam Const Vital Signs: 05/20/25 08:39 05/20/25 08:59 05/20/25 09:00 Temperature 98.5 F Temperature Source Temporal Pulse Rate 61 60 Pulse Strength Normal (2+) Respiratory Rate 18 Blood Pressure 138/75 H Blood Pressure Mean 96 Blood Pressure Source Monitor Blood Pressure Position Semi-Fowlers Blood Pressure Location Right Arm Pulse Ox 100 Oxygen Delivery Method Room Air 05/20/25 09:59 05/20/25 10:13 Temperature 98.5 F Temperature Source Pulse Rate 66 66 Pulse Strength Respiratory Rate 18 Blood Pressure 138/75 H Blood Pressure Mean Blood Pressure Source Blood Pressure Position Blood Pressure Location Pulse Ox 100 Oxygen Delivery Method Positive well nourished and well developed General Appearance ED: well developed and NAD HEENT Reports moist mucous membranes normocephalic and atraumatic Eyes General Eye ED: Yes normal appearance of both eyes Neck full ROM Chest Wall Chest: Negative for tenderness Resp normal respiratory effort and normal air movement Effort and Inspection: symmetric chest movement; Negative for respiratory distress Cardio regular rate, regular rhythm and no murmurs Peripheral Pulses: pulses 2+ throughout GI normal to inspection, nondistended, normoactive bowel sounds GI Narrative: Tender palpation left lower quadrant. Negative Hurd's or McBurney's tenderness. Palpation: Negative for guarding or rebound tenderness present Extremity normal to inspection General Extremety ED: Negative for edema or tenderness General Extremity: Negative for edema Neuro oriented x3 and no sensory deficits noted Sensorium / Orientation: awake and alert Skin no rashes or lesions noted and no wounds <Dr. Myles Bell, DO - Last Filed: 05/20/25 07:00> Physical Exam Const Vital Signs: 05/20/25 08:39 05/20/25 08:59 05/20/25 09:00 Temperature 98.5 F Temperature Source Temporal Pulse Rate 61 60 Pulse Strength Normal (2+) Respiratory Rate 18 Blood Pressure 138/75 H Blood Pressure Mean 96 Blood Pressure Source Monitor Blood Pressure Position Semi-Fowlers Blood Pressure Location Right Arm Pulse Ox 100 Oxygen Delivery Method Room Air 05/20/25 09:59 05/20/25 10:13 Temperature 98.5 F Temperature Source Pulse Rate 66 66 Pulse Strength Respiratory Rate 18 Blood Pressure 138/75 H Blood Pressure Mean Blood Pressure Source Blood Pressure Position Blood Pressure Location Pulse Ox 100 Oxygen Delivery Method MDM <Dr. Nik Skelton, DO - Last Filed: 05/21/25 08:33> MDM MDM Narrative Medical decision making narrative: Interventions / MDM: Differential diagnosis: Abdominal pain, nausea vomiting, bowel obstruction, hernia Diagnosis considered but do not suspect: Kidney stone however CT negative. My EKG interpretation: N/A Imaging independently reviewed and interpreted by myself: CT abdomen/pelvis without contrast: No kidney stones. Prominent loops of small bowel left lateral abdomen mesenteric edema and free fluid. Concerning small bowel obstruction with possible internal hernia. Enteritis and mesenteric ischemia in differential. External documents reviewed: N/A Test considered but not ordered:N/A ED course: Pain left lower quadrant however sudden. No fever chills or sweats nausea or vomiting. History more consistent possible kidney stone. She has history of pancreatic insufficiency with nausea and vomiting. Will check abdominal labs and urine. CT abdomen pelvis without contrast for further evaluation. Fluids given Zofran and morphine. 2315: Patient well more comfortable however tender in left lower quadrant. Labs white count 5.9. Lipase of 92 creatinine 0.88. Normal liver enzymes. Urine had 500 leukocytes white cells 10-25 squamous cells of 10-20 51+ bacteria. She is asymptomatic urine culture ordered. CT scan per radiology concerns for developing small bowel obstruction left lower quadrant with mesenteric edema and free fluid reporting internal hernia is possible also consideration of enteritis or mesenteric ischemia. I added lactic acid coags type and screen. I discussed with on-call surgeon Dr. Valdes, who reviewed the films. He would like her reCT with oral contrast and with ischemic mesenteric concerns will run a CT angiogram for vascular evaluation. Discussed this with the CT department. This was ordered for further evaluation. Discussed this with patient and spouse. 0035: Patient taking on oral contrast awaiting time [address] to be performed. Pain is returning additional morphine ordered. Patient signed out to oncoming physician. Re-evaluation: stable Disposition discussed with patient/family/significant other: Patient and spouse Case discussed with consulting clinician: General Surgery This note was generated with [employer] dictation software. It may contain incorrect words, spelling, and punctuation that were not noted in checking the note before signing. Lab Data Attestation: I reviewed the patient's lab results. Labs: Laboratory Results - last 24 hr 05/20/25 05/20/25 05:40 09:33 Hemoglobin A1c 6.7 H POC Glucose 109 H Radiography Diagnostic Testing: Clinical Impression(s) from Imaging Studies Abdomen/Pelvis CT 05/19/25 21:48 IMPRESSION: Mildly prominent loops of small bowel in the left lateral abdomen, peripheral to the colon, and with associated mesenteric edema and free fluid. Combination of findings raises concern for developing small bowel obstruction (for which internal hernia is possible). Additional considerations include enteritis or mesenteric ischemia. Correlate with symptoms and consider Surgical consultation. Reading Location: [id number] Abdomen/Pelvis CTA 05/20/25 00:30 IMPRESSION: Trace ascites adjacent to the liver. Dense colonic stool which may suggest constipation. Reading Location: [id number] <Dr. Myles Bell, DO - Last Filed: 05/20/25 07:00> MDM MDM Narrative Medical decision making narrative: Interventions / MDM: Differential diagnosis: Abdominal pain, nausea vomiting, bowel obstruction, hernia Diagnosis considered but do not suspect: Kidney stone however CT negative. My EKG interpretation: N/A Imaging independently reviewed and interpreted by myself: CT abdomen/pelvis without contrast: No kidney stones. Prominent loops of small bowel left lateral abdomen mesenteric edema and free fluid. Concerning small bowel obstruction with possible internal hernia. Enteritis and mesenteric ischemia in differential. External documents reviewed: N/A Test considered but not ordered:N/A ED course: Pain left lower quadrant however sudden. No fever chills or sweats nausea or vomiting. History more consistent possible kidney stone. She has history of pancreatic insufficiency with nausea and vomiting. Will check abdominal labs and urine. CT abdomen pelvis without contrast for further evaluation. Fluids given Zofran and morphine. 2315: Patient well more comfortable however tender in left lower quadrant. Labs white count 5.9. Lipase of 92 creatinine 0.88. Normal liver enzymes. Urine had 500 leukocytes white cells 10-25 squamous cells of 10-20 51+ bacteria. She is asymptomatic urine culture ordered. CT scan per radiology concerns for developing small bowel obstruction left lower quadrant with mesenteric edema and free fluid reporting internal hernia is possible also consideration of enteritis or mesenteric ischemia. I added lactic acid coags type and screen. I discussed with on-call surgeon Dr. Valdes, who reviewed the films. He would like her reCT with oral contrast and with ischemic mesenteric concerns will run a CT angiogram for vascular evaluation. Discussed this with the CT department. This was ordered for further evaluation. Discussed this with patient and spouse. 0035: Patient taking on oral contrast awaiting time [address] to be performed. Pain is returning additional morphine ordered. Patient signed out to oncoming physician. Re-evaluation: stable Disposition discussed with patient/family/significant other: Patient and spouse Case discussed with consulting clinician: General Surgery This note was generated with [employer] software. It may contain incorrect words, spelling, and punctuation that were not noted in checking the note before signing. Patient was signed out to me by Dr. Skelton. At the time of signout CTA abdomen pelvis pending. CTA of the abdomen and pelvis shows trace ascites adjacent to the liver. Dense colonic stool which may suggest constipation. Dr. Valdes was informed of the CTA abdomen and pelvis results. He came in evaluate the patient. Plan is for admission for observation. Impression: 1. Abdominal pain 2. Possible small bowel obstruction Lab Data Labs: Laboratory Results - last 24 hr 05/20/25 05/20/25 05:40 09:33 Hemoglobin A1c 6.7 H POC Glucose 109 H Radiography Diagnostic Testing: Clinical Impression(s) from Imaging Studies Abdomen/Pelvis CT 05/19/25 21:48 IMPRESSION: Mildly prominent loops of small bowel in the left lateral abdomen, peripheral to the colon, and with associated mesenteric edema and free fluid. Combination of findings raises concern for developing small bowel obstruction (for which internal hernia is possible). Additional considerations include enteritis or mesenteric ischemia. Correlate with symptoms and consider Surgical consultation. Reading Location: [facility] Abdomen/Pelvis CTA 05/20/25 00:30 IMPRESSION: Trace ascites adjacent to the liver. Dense colonic stool which may suggest constipation. Reading Location: [id number] Discharge Plan Dx/Rx/DC Orders Clinical Impression: Abdominal pain, Vomiting, SBO (small bowel obstruction) Disposition Disposition: [facility] Discharge Date/Time: 05/20/25 04:26
--- OUTSIDE RECORDS SUMMARY | 2025-05-19 22:07 | XMS RPT_ITS | CCD ---
Author Organization [facility] Care Team Providers Care Inventory Administrator Name Role Phone Moni Garcia Unavailable Unavailable Roof STRAP SEWER, Octaviano Viera Unavailable Moni Garcia Unavailable Unavailable Manda Pekc Unavailable Unavailable Yee Mei Unavailable Jennifer RN, Nancy Callahan Unavailable Moni Garcia Unavailable Unavailable Jennifer RN, Nancy Callahan Unavailable Jennifer RN, Nancy Callahan Unavailable AGNES Paige, Blanca Myles Unavailable UnavailClifton Goetz MD Primary Care Provider Obey MONK MD, Daesung Unavailable Dr. Clifton Hung Primary Care Provider Dr. Clifton Hung Referring Provider Roof STRAP SEWER, STRAP SEWER-Marleny Viera Attending Provider Clifton Hung MD Primary Care Provider Obey MONK MD, Daesung Unavailable Dr. Ron Gomez Attending Provider Roof STRAP SEWER, STRAP SEWER-Marleny Viera Referring Provider Roof STRAP SEWER, STRAP SEWER-C Octaviano Viera Other Provider Clifton Hung MD Primary Care Provider Clifton Hung MD Primary Care Provider Obey MONK MD, Dasantosung Unavailable Dr. Clifton Hung Primary Care Provider Dr. Clifton Hung Referring Provider Roof STRAP SEWER, STRAP SEWER-C Octaviano Viera Attending Provider Sanket STRAP SEWER, STRAP SEWER-C Karin Myles Attending Provider [phone] Dr. Carson Alcantar Attending Provider [phone] Dr. Carson Alcantar Other Provider [phone] Admitting Unavailable TEO HUTCHINS DR Attending Unavailable TEO HUTCHINS DR Primary Care Unavailable CLIFTON HUNG MD Consulting Unavailable PROVIDER, UNKNOWN Consulting Unavailable Dr. Clifton Hung Primary Care Provider Dr. Clifton Hung Referring Provider Sanket STRAP SEWER, STRAP SEWER-C Karin Myles Attending Provider [phone] Dr. Carson Alcantar Attending Provider [phone] Dr. Carson Alcantar Other Provider [phone] Dr. Clifton Hung Primary Care Provider Dr. Clifton Hung Referring Provider Roof STRAP SEWER, STRAP SEWER-C Octaviano Viera Attending Provider Sanket STRAP SEWER, STRAP SEWER-Marleny Myles Attending Provider [phone] Dr. Clifton Hung Primary Care Provider Dr. Clifton Hung Referring Provider Roof STRAP SEWER, STRAP SEWER-C Octaviano H Attending Provider Roof STRAP SEWER, STRAP SEWER-C Octaviano H Referring Provider Roof STRAP SEWER, STRAP SEWER-C Octaviano H Other Provider Dr. Karsten Zarate Attending Provider Dr. Clifton Hung Primary Care Provider Dr. Clifton Hung Referring Provider Roof STRAP SEWER, STRAP SEWER-C Octaviano H Attending Provider Dr. Karsten Zarate Attending Provider Roof STRAP SEWER, STRAP SEWER-C Octaviano H Referring Provider Dr. Carson Alcantar Attending Provider Obey MONK, Renata Unavailable Dr. Clifton Hung Primary Care Provider Yandel HEALY, KYMBERLYC Octaviano Viera Attending Provider Dr. Clifton Hung Referring Provider Dick MONK, Clifton Cordova Primary Care Provider Dick MONK, Clifton Cordova Primary Care Provider Kumar ELLISON.ELIZABETH, Francine Unavailable Cherise Sifuentes PA-C Unavailable Dick, Clifton Primary Care Unavailable Victor M Hernandez Attending Unavailable Friend, Carson Attending Unavailable Dick, Clifton Primary Care Unavailable Dick, Clifton Referring Unavailable Friend, Carson Attending Unavailable Friend, Carson Referring Unavailable Dick, Clifton Primary Care Unavailable Friend, Carson Referring Unavailable Friend, Carson Attending Unavailable Dick, Clifton Primary Care Unavailable Friend, Carson Attending Unavailable Dick, Clifton Primary Care Unavailable Dick, Clifton Referring Unavailable Dick, Clifton Primary Care Unavailable Elliot, Karsten Attending Unavailable Dick, Clifton Referring Unavailable Friend, Carson Attending Unavailable Dick, Clifton Primary Care Unavailable Dick, Clifton Referring Unavailable Dick, Clifton Referring Unavailable Elliot, Lake Attending Unavailable Dick, Clifton Primary Care Unavailable Friend, Carson Attending Unavailable Friend, Carson Consulting Unavailable Dick, Clifton Primary Care Unavailable Dick, Clifton Referring Unavailable Dick, Clifton Referring Unavailable Octaviano Humphries NP Attending Unavailable Dick, Clifton Primary Care Unavailable Friend, Carson Attending Unavailable Friend, Carson Referring Unavailable Dick, Clifton Primary Care Unavailable Friend, Carson Attending Unavailable Friend, Carson Referring Unavailable Dick, Clifton Primary Care Unavailable Friend, Carson Attending Unavailable Friend, Carson Referring Unavailable Dick, Clifton Primary Care Unavailable Dick, Clifton Primary Care Unavailable Caro Pedro Attending Unavailable ORI LORD Attending Unavailable DICK, CLIFTON A Primary Care Unavailable ORI LORD Attending Unavailable DICK, CLIFTON A Primary Care Unavailable ORI LORD Attending Unavailable DICK, CLIFTON A Primary Care Unavailable ORI LORD Attending Unavailable FRANCINE MADRID Referring Unavailable DICK, CLIFTON A Primary Care Unavailable ORI LORD Attending Unavailable DICK, CLIFTON A Primary Care Unavailable 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, 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 Unavailable Bear MENDOZA, Cherise Unavailable Knjudy 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, Francine Unavailable Bear MENDOZA, Cherise Unavailable BENDARAM, ALEXA HURST Referring Unavaila ble DICK, CLIFTON A Primary Care Unavailable BENDARAM, ALEXA HURST Referring Unavaila ble DICK, CLIFTON A Primary Care Unavailable FRANCINE MADRID Attending Unavailable DICK, CLIFTON A Primary Care Unavailable DICK, CLIFTON A Primary Care Unavailable BENDARAM, ALEXA HURST Attending Unavaila ble DICK, CLIFTON A Primary Care Unavailable DICK, CLIFTON A Primary Care Unavailable CHERISE SIFUENTES Referring Unavailable DICK, CLIFTON A Attending Unavailable DICK, CLIFTON A Primary Care Unavailable BENDARAM, ALEXA HURST Attending Unavaila ble DICK, CLIFTON A Primary Care Unavailable BENDARAM, ALEXA HURST Attending Unavaila ble DICK, CLIFTON A Primary Care Unavailable ORI LORD Referring Unavailable DICK, CLIFTON A Primary Care Unavailable CHAD MARIEE Referring Unavailable CHAD MARIEE Attending Unavailable DICK, CLIFTON A Referring Unavailable DICK, CLIFTON A Primary Care Unavailable BENDARAM, ALEXA HURST Attending Unavaila ble DICK, CLIFTON A Primary Care Unavailable BENDARAM, ALEXA HURST Referring Unavaila ble DICK, CLIFTON A Primary Care Unavailable BENDARAM, ALEXA HURST Referring Unavaila ble DICK, CLIFTON A Primary Care Unavailable CHAD MARIEE Attending Unavailable DICK, CLIFTON A Primary Care Unavailable DICK, CLIFTON A Primary Care Unavailable CHERISE SIFUENTES Attending Unavailable DICK, CLIFTON A Primary Care Unavailable FRANCINE MADRID Attending Unavailable SIMA DUMONT Attending Unavailable CLIFTON HUNG Primary Care Unavailable ALEXA MATUTE Attending UnavailCLIFTON Núñez Primary Care Unavailable CLIFTON HUNG Primary Care Unavailable ALEXA MATUTE Referring Unavaila CLIFTON Person Primary Care Unavailable CHAD MARIEE Referring Unavailable Allergies Allergy Classification Reported Allergen(s) Allergy Type Date of Onset Reaction(s) Facility (20 sources) cephalexin; Translations: [CEPHALEXIN] drug allergy 6 Other: See Comments [facility] Work Phone: (20 sources) Acetaminophen / HYDROcodone; Translations: [HYDROCODONE-ACET AMINOPHEN] Drug Allergy 6 Itching [facility] Work Phone: (20 sources) atorvastatin; Translations: [ATORVASTATIN] Drug Allergy 3 Other: See Comments [facility] Work Phone: (20 sources) Lovastatin; Translations: [LOVASTATIN] Drug Allergy 3 Other: See Comments [facility] Work Phone: (20 sources) rosuvastatin; Translations: [ROSUVASTATIN] Drug Allergy 0 Myalgia [facility] Work Phone: (20 sources) Ticagrelor; Translations: [TICAGRELOR] Drug Allergy 7 Shortness of Breath [facility] Work Phone: (13 sources) Cephalexin; Translations: [cephalexin monohydrate] Drug Allergy 2 Other [facility] (12 sources) HYDROcodone Drug Allergy 2 Hives [facility] (12 sources) Pravastatin Drug Allergy 2 myalgias [facility] (1 source) Codeine Drug Allergy [facility] (1 source) atorvastatin Drug Allergy 4 [facility] (1 source) HYDROcodone Drug Allergy 4 [facility] (1 source) Lovastatin Drug Allergy 4 [facility] (1 source) Pravastatin Drug Allergy 4 [facility] (1 source) rosuvastatin Drug Allergy 4 [facility] (1 source) Ticagrelor Drug Allergy 4 [facility] Medications Current Medications Medication Drug Class(es) Dates Sig (Normalized) Sig (Original) acetaminophen 500 mg oral capsule (20 sources) Start: 11-24-2021 take 500 mg by mouth every six hours Acetaminophen Active 500 MG PO EVERY 6 HOURS November 24, 2021 1:00am take 2 tablets by mo ut every eight hours as needed acetaminophen (TYLENOL) 500 mg tablet Ta ke 1,000 mg by mouth every 8 hours as needed. Active Comment on above: Take 1,000 mg by le th every 8 hours as needed. amLODIPine 5 mg oral tablet (20 sources) Dihydropyridine Calcium Channel Odell Start: 5 take 1 tablet by mouth once daily amLODIPine (NORVASC) 5 mg tablet Take 1 tablet by mouth once daily. 01/24/2025 Active Start: 01-04-2024 End: 04-25-2024 take 1 tablet by mouth once amLODIPine (NORVASC) 2.5 m g tablet Take 1 tablet by mouth every afternoon. 0 01/05/2024 Active Comment on above: Take 1 tablet by le th every afternoon. amoxicillin 875 mg / clavulanate 125 mg oral tablet (3 sources) Penicillin-class Antibacterial Start: End: 4 take 1 tablet by mouth twice daily amoxicillin-clavul anate potassium (AUGMENTIN) 875-125 mg per tablet Take 1 tablet by mouth two times a day for 10 days. 20 tablet 0 03/23/2024 04/02/2024 Active Start: 02-09-2023 End: 02-19-2023 take 1 tablet by mouth twice daily amoxicillin-clavulanic acid (AUGMENTIN) 875-125 mg per tablet Take 1 tablet by mouth twice daily for 10 days. 20 tablet 0 02/09/2023 02/19/2023 Active Comment on above: Take 1 tablet by le th twice daily for 10 days. amylase [id number] unt / lipase 05967 unt / protease [id number] unt delayed release oral capsule (20 sources) Start: 03-04-2023 take 2-3 capsules by mouth at bedtime bbmxya-qirpkrvh-efx lase (CREON 36) 36,000-114,000- 180,000 unit delayed release capsule Take 2-3 capsules by mouth with meals and at bedtime. 03/04/2023 Active Start: 03-04-2023 lipase-proteas e-amylase (CREON 36) 36,000-114,000- 180,000 unit delayed release capsule .COMPLEX 03/04/2023 Active Start: 12-10-2022 End: 04-01-2023 fianrp-biffahtj-qpfoezk (CRE ON 36) 36,000-114,000- 180,000 unit delayed release capsule .COMPLEX 0 03/04/2023 Active Start: 12-10-2022 End: 04-25-2024 take [id number] capsules by mouth three times daily at mealtime Crhojg-Yyvxbrhw-Gcanbnh (Creon) 12,000-38,000 -60,000 unit capsule,delayed release(DR/EC) Discontinued 1 CAP PO THREE TIMES A DAY December 10, 2022 12:00am December 10, 2022 3:27pm administer with meals and/or snacks Comment on above: Take by mouth three times daily with meals. calcium citrate 1500 mg / cholecalciferol 250 unt oral tablet (20 sources) Vitamin D Start: 08-30-2023 take 2 tablets by mouth once daily Calcium Citrate-Vitamin D3 Active 2 TABLET PO DAILY August 29, 2023 11:00pm Start: 04-09-2023 take 2 tablets by mo uth once daily Calcium Citrate-Vitamin D3 (CITRACAL+D) 315 mg-6.25 mcg (250 unit) tab Take 2 tablets by mouth once daily. 04/09/2023 Active Comment on above: Take 2 tablets by mo uth once daily. cholecalciferol 0.05 mg oral capsule (20 sources) Vitamin D Start: take 4000 [IU] by mouth once daily Cholecalciferol (Vitamin D3) Active 4000 UNIT PO DAILY August 22, 2018 9:34am Start: 01-01-2017 End: 08-22-2018 take 2000 [IU] by mouth once daily Cholecalciferol (Vitamin D3) Discontinued 2000 UNIT PO DAILY January 01, 2017 12:00am August 22, 2018 9:37am Start: 11-08-2016 End: 08-28-2022 take 1 capsule by mouth once daily cholecalciferol, vitamin D3, (VITAMIN D3) 4,000 unit cap Take 1 capsule by mouth once daily. 0 11/08/2016 08/28/2022 Discontinued Comment on above: Take 1 capsule by [facility] once daily. clobetasol propionate 0.0005 mg/mg topical gel (20 sources) Corticosteroid Start: 11-24-2021 End: 09-03-2022 Clobetasol Active 1 APPLIC TOPICAL DAILY September 03, 2022 9:40am Start: 09-23-2021 Clobetasol Pro pionate 0.05 % gel Apply 1 application to affected area as needed. 09/23/2021 Active Start: 09-23-2021 Clobetasol Pro pionate 0.05 % gel Comment on above: Apply 1 application to affected area as needed. CPAP (20 sources) Start: 02-02-2006 CPAP 0 02/02/2006 Active Start: 02-02-2006 CPAP dexamethasone 0.5 mg oral tablet (17 sources) Corticosteroid Start: 02-16-2025 End: 03-16-2025 dexAMETHasone (DECADRON) 0.5 mg tablet Indications: Adenoma of right adrenal gland Take the tablet at 11 pm and go for labs the next morning on fasting at 8 am 8 tablet 02/16/2025 03/16/2025 Discontinued Start: 09-22-2024 End: 02-16-2025 dexAMETHasone (DECADRON) 1 m g tablet Indications: Adenoma of right adrenal gland Take the tablet at 11 pm and go for labs the next morning on fasting at 8 am 1 tablet 09/22/2024 02/16/2025 Discontinued dicyclomine hydrochloride 20 mg oral tablet (16 sources) Anticholinergic Start: 06-02-2024 take 1 tablet by mouth every six hours as needed dicyclomine (BENTYL) 20 mg tablet Take 20 mg by mouth four times a day as needed (IBS symptoms). 06/02/2024 Active Start: 06-02-2024 dicyclomine (B ENTYL) 20 mg tablet three times a day. 06/02/2024 Active enteric contrast (will be provided with radiology test) (7 sources) Start: 09-16-2022 End: 09-17-2022 enteric contrast (will be provided with radiology test) Indications: Abnormal CT of the abdomen , Liver lesion , Ductal carcinoma in situ (DCIS) of left breast For CT CHESTABD/PEL W IVCON Routine order Administer, As Directed One Time Only, via Oral, Rectal, both Oral and Rectal, Enteric Tube, Stoma or Indwelling Catheter, Enteric Contrast as designated per enteric contrast guidelines 1 Each 0 09/16/2022 09/17/2022 Active Start: 08-28-2022 End: 08-29-2022 enteric contrast (will be pr ovided with radiology test) For CT CHESTABD/PEL W IVCON Routine order Administer, As Directed One Time Only, via Oral, Rectal, both Oral and Rectal, Enteric Tube, Stoma or Indwelling Catheter, Enteric Contrast as designated per enteric contrast guidelines 1 Each 0 08/28/2022 08/29/2022 Active Comment on above: For CT CHESTABD/PEL W IVCON Routine order Administer, As Directed One Time Only, via Oral, Rectal, both Oral and Rectal, Enteric Tube, Stoma or Indwelling Catheter, Enteric Contrast as designated per enteric contrast guidelines estradiol 0.1 mg/ml vaginal cream (20 sources) Estrogen Start: 4 End: 5 estradiol (ESTRACE) 0.01 % (0.1 mg/gram) vaginal cream Indications: Genitourinary syndrome of menopause Use 1 g vaginally as directed. insert 1 gm vaginally twice weekly 42.5 g 3 04/09/2025 Active ezetimibe 10 mg oral tablet (20 sources) Dietary Cholesterol Absorption Inhibitor Start: 1 End: 4 take 1 tablet by mouth once daily ezetimibe (ZETIA) 10 mg tablet Take 1 tablet by mouth once daily. 90 tablet 1 10/18/2024 Active Comment on above: Take 1 tablet by le once daily. Handicap Placard (20 sources) Start: 3 Handicap Placard Active 1 August 30, 2023 9:41am As directed; Good from 10/06/2023 to 10/06/2028 Start: 08-30-2023 End: 08-30-2023 Handicap Placard Discontinue d August 30, 2023 9:40am August 30, 2023 9:42am As directed; Good from 10/06/2023 to 10/06/2028 Start: 10-06-2018 End: 08-30-2023 Handicap Placard Discontinue d 1 October 06, 2018 2:04pm August 30, 2023 9:41am As directed; Good from 10/06/2018 to 10/06/2023 Start: 10-06-[address] Active October 06, 2018 2:04pm As directed; Good from 10/06/2018 to 10/06/2023 Start: 10-06-[address] Active October 06, 2018 3:04pm As directed; Good from 10/06/2018 to 10/06/2023 Start: 10-06-2018 End: 10-06-2018 Handicap Placard Discontinue d October 06, 2018 2:02pm October 06, 2018 2:05pm As directed Start: 10-06-2018 End: 10-06-2018 Handicap Placard Discontinue d October 06, 2018 3:02pm October 06, 2018 3:05pm As directed Start: 10-06-2018 End: 10-06-2018 Handicap Placard Discontinue d 1 October 06, 2018 12:00am October 06, 2018 2:03pm As directed Start: 10-06-2018 End: 10-06-2018 Handicap Placard Discontinue d October 06, 2018 1:00am October 06, 2018 3:03pm As directed hydroCHLOROthiazide 12.5 mg oral capsule (20 sources) Thiazide Diuretic Start: 12-31-2023 End: 01-14-2024 take 1 capsule by mouth once daily hydroCHLOROthiazide 12.5 mg capsule Indications: Essential hypertension Take 1 capsule by mouth once daily. 30 capsule 12 12/31/2023 01/14/2024 Discontinued Start: 10-06-2018 End: 04-21-2023 take 25 mg by mouth once daily Hydrochlorothiazide Discontinued 25 MG PO DAILY October 06, 2018 12:00am April 21, 2023 1:09pm Start: 09-23-2016 End: 10-22-2017 take 25 mg by mouth once daily Hydrochlorothiazide Discontinued 25 MG PO DAILY September 23, 2016 12:00am October 22, 2017 2:46pm Comment on above: Take 1 tablet by le once daily. Take 1 capsule by mo [facility] once daily. iv contrast (will be provided with radiology test) (9 sources) Start: 03-16-2025 End: 03-17-2025 iv contrast (will be provided with radiology test) Indications: Disorder of adrenal gland (HCC) CT adrenal WO/W Inject, intravenously, once for 1 dose.No IV access, [...] in the CT contrast administration guidelines link. 1 each 03/16/2025 03/17/2025 Active Start: 07-11-2024 End: 07-12-2024 iv contrast (will be provide d with radiology test) Indications: Adenoma of right adrenal gland CT adrenal WO/W Inject, intravenously, once for 1 dose.No IV access, [...] in the CT contrast administration guidelines link. 1 Each 07/11/2024 07/12/2024 Active Start: 09-16-2022 End: 09-17-2022 iv contrast (will be provide d with radiology test) Indications: Abnormal CT of the abdomen , Liver lesion , Ductal carcinoma in situ (DCIS) of left breast CT Chest ABD/PEL-Inject, intravenously, once for 1 [...] in the CT contrast administration guidelines link. 1 Each 0 09/16/2022 09/17/2022 Active Start: 08-28-2022 End: 08-29-2022 iv contrast (will be provide d with radiology test) CT Chest ABD/PEL-Inject, intravenously, [...] in the CT contrast administration guidelines link. 1 Each 0 08/28/2022 08/29/2022 Active Comment on above: CT Chest ABD/PEL-Inj ect, intravenously, once for 1 dose.No IV access, [...] in the CT contrast administration guidelines link. ketoconazole 20 mg/ml medicated shampoo (20 sources) Azole Antifungal Start: 08-30-2023 Ketoconazole Active 1 APPLIC TOPICAL EVERY OTHER DAY August 29, 2023 11:00pm Start: 08-22-2018 End: 09-03-2022 ketoconazole (NIZORAL) 2 % s hampoo Apply 1 application to affected area once daily as needed. 120 mL 1 05/27/2020 Active Comment on above: Apply 1 application to affected area once daily as needed. L.Acidoph, Paracasei,B. Lactis (12 sources) Start: 09-23-2016 L.Acidoph, Paracasei,B. Lactis Active 1 EACH PO AT BEDTIME September 23, 2016 12:00am Start: 09-23-2016 L.Acidoph, Par acasei,B. Lactis Active 1 EACH PO AT BEDTIME September 23, 2016 1:00am ammonium lactate 120 mg/ml topical lotion (20 sources) Start: 11-24-2021 Ammonium Lacta te Active 1 APPLIC TOPICAL DAILY November 24, 2021 1:00am Start: 09-22-2021 ammonium lacta te (LAC-HYDRIN) 12 % lotion Apply 1 application to affected area twice daily as needed. 09/22/2021 Active Comment on above: Apply 1 application to affected area twice daily as needed. Lactobacillus acidophilus (20 sources) take 1 tablet by mouth once daily LACTOBACILLUS ACIDOPHILUS (PROBIOTIC ORAL) Take 1 tablet by mouth once daily. Active take 1 tablet by mouth once micaela y LACTOBACILLUS ACIDOPHILUS (PROBIOTIC ORAL) Take 1 tablet by mouth once daily. 0 Active Comment on above: Take 1 tablet by le th once daily. Lactulose (20 sources) Osmotic Laxative Start: 11-03-2023 take 1 mL by mouth once daily Lactulose Active 15 ML PO DAILY 473 November 03, 2023 11:34am Start: 01-08-2023 End: 11-03-2023 take 1 mL by mouth once daily Lactulose Discontinued 1 5 ML PO DAILY 946 June 07, 2023 3:22pm August 30, 2023 9:41am magnesium oxide 500 mg oral tablet (10 sources) Start: 09-03-2022 take 500 mg by mouth once daily Magnesium Oxide Active 500 MG PO DAILY September 02, 2022 11:00pm metFORMIN hydrochloride 500 mg oral tablet (20 sources) Biguanide Start: 04-03-2022 End: 10-05-2023 take 2 tablets by mouth twice daily at mealtime metFORMIN (GLUCOPHAGE) 500 mg tablet Take 2 tablets by mouth twice daily with meals. 360 tablet 1 04/08/2023 Active Start: 11-24-2021 take 1000 mg by mout h twice daily Metformin Active 1000 MG PO TWICE A DAY November 24, 2021 2:39pm Start: 09-26-2021 End: 03-25-2022 take 2 tablets by mouth twice daily at mealtime metFORMIN (GLUCOPHAGE) 500 mg tablet Take 2 tablets by mouth twice daily with meals. 360 tablet 1 09/26/2021 03/25/2022 Active Start: 08-23-2019 End: 11-24-2021 take 1000 mg by mouth once daily Metformin Discontinue d 1000 MG PO DAILY August 23, 2019 2:25pm November 24, 2021 2:43pm Start: 10-22-2017 End: 08-23-2019 Metformin Discontinued 500 M G PO .COMPLEX August 22, 2018 9:35am August 23, 2019 2:27pm 500 mg PO 500mg in the am and 1000mg at dinner; diabetes Start: 01-05-2017 METFORMIN HCL 1000 MG TABS every night METFORMIN HCL [id number] Nancy Myers PA-C Start: 01-05-2017 take 1 tablet by le th twice daily METFORMIN HCL 500 MG TABS One tablet by mouth twice daily METFORMIN HCL [id number] Ron Gomez MD Start: 09-23-2016 End: 10-22-2017 take 1000 mg by mouth at bedtime Metformin Discontinue d 1000 MG PO AT BEDTIME September 23, 2016 12:00am October 22, 2017 2:50pm Comment on above: Take 2 tablets by mo uth twice daily with meals. methylPREDNISolone (3 sources) Corticosteroid Start: 2023 End: 2023 methylPREDNISolone (MEDROL, JUANITA,) 4 mg Dose-Pack Follow dosing instructions, take with food. 21 tablet 0 03/22/2024 03/28/2024 Active metoprolol tartrate 25 mg oral tablet (20 sources) beta-Adrenergic Odell Start: 2023 take 1 tablet by mouth twice daily metoprolol tartrate, short acting, (LOPRESSOR) 25 mg tablet Take 25 mg by mouth two times a day. 01/27/2024 Active Start: 11-23-2019 End: 03-15-2023 take 25 mg by mouth twice daily Metoprolol Tartrate Di scontinued 25 MG PO TWICE A DAY 180 February 04, 2023 8:41am March 15, 2023 3:14pm Start: 08-23-2019 End: 11-23-2019 take 25 mg by mouth twice daily Metoprolol Succinate Discontinued 25 MG PO TWICE A DAY 180 November 22, 2019 3:55pm November 23, 2019 10:00am Start: 10-22-2017 End: 08-23-2019 take 25 mg by mouth twice daily Metoprolol Tartrate Di scontinued 25 MG PO TWICE A DAY 180 November 04, 2018 4:46pm August 23, 2019 2:26pm Start: 08-04-2017 End: 03-16-2025 metoprolol succinate ER (TOP ROL XL) 25 mg 24 hr tablet Take 1 tablet by mouth twice daily. Per Dr. Gomez 08/04/2017 03/16/2025 Discontinued Start: 01-05-2017 take 1 tablet by le th once daily METOPROLOL SUCCINATE ER 50 MG [id number] One tablet by mouth daily METOPROLOL SUCCINATE [id number] Nancy Myers PA-C Start: 01-05-2017 take 0.5 tablet by m out twice daily METOPROLOL TARTRATE 50 MG TABS 1/2 tablet by mouth twice daily METOPROLOL TARTRATE [id number] Ron Gomez MD Start: 09-23-2016 End: 10-22-2017 take 50 mg by mouth at bedtime Metoprolol Tartrate Dis continued 50 MG PO AT BEDTIME September 23, 2016 12:00am October 22, 2017 2:47pm Comment on above: Take 1 tablet by le twice daily. Per Dr. Gomez metroNIDAZOLE 500 mg oral tablet (3 sources) Nitroimidazole Antimicrobial Start: 12-11-19 End: 12-18-19 take 1 tablet by mouth twice daily metroNIDAZOLE (FLAGYL) 500 mg tablet Indications: Bacterial vaginosis Take 1 tablet by mouth twice daily for 7 days. 14 tablet 0 12/11/2022 12/18/2022 Active Comment on above: Take 1 tablet by le twice daily for 7 days. montelukast 10 mg oral tablet (20 sources) Leukotriene Receptor Antagonist Start: 08-22-20 take 10 mg by mouth once daily in the evening Montelukast Active 10 MG PO EVERY EVENING August 21, 2018 11:00pm Comment on above: Take 10 mg by mouth daily at bedtime. mupirocin 0.02 mg/mg topical ointment (2 sources) RNA Synthetase Inhibitor Antibacterial Start: 06-30-20 End: 07-05-20 mupirocin (BACTROBAN) 2 % ointment Apply to affected area three times daily for 5 days. 22 g 0 06/30/2022 07/05/2022 Active Comment on above: Apply to affected ar ea three times daily for 5 days. nirmatrelvir tablet 300 mg (150 mg x 2) and ritonavir tablet 100 mg in a dose pack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 01-05-2017 Chronic Diabetes mellitus without complication (1 source) Hyperglycemia; Translations: [Hyperglycemia, unspecified] 01-17-2024 Episodic Disorders of lipid metabolism (20 sources) Hyperlipidemia; Translations: [Mixed hyperlipidemia] Onset: 9 01-05-2017 Chronic Esophageal disorders (20 sources) Gastroesophageal reflux disease without esophagitis; Translations: [Gastro-esophageal reflux disease without esophagitis] Onset: 4 10-18-2024 Chronic Essential hypertension (20 sources) Hypertensive disorder; Translations: [Essential hypertension] Onset: 6 01-05-2017 Chronic Genitourinary symptoms and ill-defined conditions (9 sources) Incontinence; Translations: [Mixed incontinence] Onset: 4 Chronic Genitourinary symptoms and ill-defined conditions (20 sources) Dysuria; Translations: [Dysuria] Onset: 4 Episodic Headache; including migraine (2 sources) Headache; Translations: [Headache] 12-28-2023 Episodic Headache; including migraine (1 source) Headache; including migraine; Translations: [Headache, unspecified] Onset: 4 Inflammatory diseases of female pelvic organs (1 source) Bacterial vaginosis; Translations: [Acute vaginitis] Episodic Influenza (3 sources) Influenza due to Influenza A virus; Translations: [Influenza due to other identified influenza virus with other respiratory manifestations] 12-22-2023 Episodic Menopausal disorders (10 sources) Atrophy of vagina; Translations: [Postmenopausal atrophic vaginitis] Onset: Chronic Mycoses (1 source) Candidiasis of vagina; Translations: [Vaginal yeast infection] 12-31-2023 Episodic Nausea and vomiting (15 sources) Nausea; Translations: [Nausea] Episodic Nonspecific chest pain (12 sources) Chest pain; Translations: [Chest pain, unspecified] 10-22-2017 Episodic Nutritional deficiencies (20 sources) Vitamin D deficiency; Translations: [Vitamin D deficiency, unspecified] Onset: 6 01-16-2016 Chronic Osteoarthritis (20 sources) Arthritis; Translations: [Unspecified osteoarthritis, unspecified site] 11-03-2021 Chronic Other aftercare (2 sources) Long-term current use of tamoxifen; Translations: [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)] Episodic Other aftercare (1 source) 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); Translations: [Long-term current use of tamoxifen] Onset: Episodic Other and ill-defined heart disease (12 sources) Left ventricular cardiac dysfunction; Translations: [Heart disease, unspecified] 09-09-2021 Chronic Other and unspecified benign neoplasm (20 sources) History of polyp of colon; Translations: [Personal history of colonic polyps] 04-10-2020 Episodic Other and unspecified benign neoplasm (9 sources) Adenoma of right adrenal gland; Translations: [Benign neoplasm of right adrenal gland] 05-23-2024 Episodic Other circulatory disease (20 sources) History of angioplasty; Translations: [Peripheral vascular angioplasty status with implants and grafts] Onset: 7 01-09-2017 Chronic Other connective tissue disease (1 source) Lateral epicondylitis of right humerus; Translations: [Lateral epicondylitis, right elbow] 10-18-2024 Episodic Other diseases of kidney and ureters (2 sources) Cyst of kidney; Translations: [Cyst of kidney, acquired] 07-04-2024 Episodic Other endocrine disorders (5 sources) Disorder of adrenal gland; Translations: [Disorder of adrenal gland, unspecified] 07-11-2024 Chronic Other endocrine disorders (1 source) Disorder of adrenal gland, unspecified; Translations: [Disorder of adrenal gland (HCC)] Onset: 5 Chronic Other female genital disorders (1 source) Superficial pain on intercourse; Translations: [Superficial (introital) dyspareunia] Chronic Other female genital disorders (1 source) Pruritus of vagina; Translations: [Other specified noninflammatory disorders of vagina] Episodic Other female genital disorders (3 sources) Vaginal discharge; Translations: [Other specified noninflammatory disorders of vagina] Episodic Other gastrointestinal disorders (20 sources) Irritable bowel syndrome with diarrhea; Translations: [Irritable bowel syndrome with diarrhea] Onset: 1 05-26-2021 Chronic Other gastrointestinal disorders (10 sources) Irritable bowel syndrome; Translations: [Irritable bowel syndrome without diarrhea] 11-19-2022 Chronic Other gastrointestinal disorders (4 sources) Irritable bowel syndrome without diarrhea; Translations: [Irritable bowel syndrome] Onset: 4 11-19-2022 Chronic Other gastrointestinal disorders (7 sources) Diarrhea; Translations: [Diarrhea, unspecified] 12-10-2022 Episodic Other hereditary and degenerative nervous system conditions (20 sources) Restless legs; Translations: [Restless legs syndrome] Onset: 3 Chronic Other hereditary and degenerative nervous system conditions (1 source) Restless legs syndrome; Translations: [RLS (restless legs syndrome)] Onset: 3 Chronic Other inflammatory condition of skin (20 [...] liver; Translations: [Liver disease, unspecified] Chronic Other liver diseases (10 sources) Steatosis of liver; Translations: [Fatty (change of) liver, not elsewhere classified] 11-19-2022 Chronic Other liver diseases (4 sources) Fatty (change of) liver, not elsewhere classified; Translations: [Other chronic nonalcoholic liver disease] 11-19-2022 Chronic Other liver diseases (6 sources) High lipase level in serum; Translations: [Abnormal levels of other serum enzymes] 04-01-2023 Episodic Other liver diseases (5 sources) Abnormal levels of other serum enzymes; Translations: [Other nonspecific abnormal serum enzyme levels] 04-01-2023 Episodic Other lower respiratory disease (11 sources) Dyspnea on exertion; Translations: [Other forms of dyspnea] 06-25-2022 Episodic Other lower respiratory disease (1 source) Cough; Translations: [Acute cough] Episodic Other lower respiratory disease (1 source) Disorder of respiratory system; Translations: [Respiratory disorder, unspecified] 03-22-2024 Episodic Other lower respiratory disease (1 source) Cough; Translations: [Acute cough] 12-29-2024 Episodic Other nervous system disorders (20 sources) Narcolepsy without cataplexy ; Translations: [Narcolepsy without cataplexy] Onset: 6 11-03-2021 Chronic Other nervous system disorders (1 source) Narcolepsy without cataplexy; Translations: [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)] Onset: 1 Chronic Other nervous system disorders (9 sources) Drug-induced myopathy; Translations: [Drug-induced myopathy] Onset: 5 04-10-2025 Episodic Other nervous system disorders (1 source) Drug-induced myopathy; Translations: [Drug-induced myopathy] Onset: 5 Episodic Other nutritional; endocrine; and metabolic disorders (8 sources) Hypomagnesemia; Translations: [Hypomagnesemia] Onset: 5 04-19-2025 Chronic Other nutritional; endocrine; and metabolic disorders (1 source) Hypomagnesemia; Translations: [Hypomagnesemia] Onset: 5 Chronic Other nutritional; endocrine; and metabolic disorders (20 sources) H/O: endocrine disorder; Translations: [Personal history of other endocrine, nutritional and metabolic disease] 11-03-2021 Episodic Other screening for suspected conditions (not mental disorders or infectious disease) (2 sources) CT of chest abnormal; Translations: [Abnormal findings on diagnostic imaging of other specified body structures] Chronic Other screening for suspected conditions (not mental disorders or infectious disease) (20 sources) Patient encounter status; Translations: [Encounter for screening for malignant neoplasm of colon] Onset: 6 01-16-2016 Episodic Other skin disorders (20 sources) Female pattern [...] nasal sinuses] Episodic Other upper respiratory infections (2 sources) Bacterial sinusitis; Translations: [Chronic sinusitis, unspecified] Chronic Other upper respiratory infections (4 sources) Acute upper respiratory infection; Translations: [Acute upper respiratory infection, unspecified] Episodic Prolapse of female genital organs (1 source) Midline cystocele; Translations: [Cystocele, midline] Chronic Residual codes; unclassified (20 sources) Obstructive sleep apnea syndrome; Translations: [Obstructive sleep apnea (adult) (pediatric)] 11-03-2021 Chronic Residual codes; unclassified (1 source) Intolerant of cold; Translations: [Other general symptoms and signs] 03-16-2025 Episodic Residual codes; unclassified (2 sources) Postmenopausal state; Translations: [Asymptomatic menopausal state] 04-09-2025 Episodic Residual codes; unclassified (11 sources) Other specified health status; Translations: [Other drug allergy] Onset: 3 04-10-2025 Episodic Residual codes; unclassified (1 source) Other specified personal risk factors, not elsewhere classified; Translations: [Encounter for gynecologic examination for high-risk patient covered by Medicare] Onset: 5 Episodic Residual codes; unclassified (1 source) Asymptomatic menopausal state; Translations: [Asymptomatic postmenopausal status] Onset: 5 Episodic Residual codes; unclassified (1 source) Other general symptoms and signs; Translations: [Cold intolerance] Onset: 5 Episodic Screening and history of mental health and substance abuse codes (20 sources) H/O: depression; Translations: [Personal history of other mental and behavioral disorders] Onset: 5 11-03-2021 Episodic Spondylosis; intervertebral disc disorders; other back problems (13 sources) Cervico-occipital neuralgia; Translations: [Occipital neuralgia] Episodic Unclassified (5 sources) Long-term drug therapy; Translations: [Other care home (current) drug therapy] Onset: 7 01-20-2017 Unclassified (1 source) Finding of body mass index; Translations: [Body mass index (BMI) 28.0-28.9, adult] Onset: 7 01-20-2017 Unclassified (1 source) Cough, unspecified; Translations: [Cough, unspecified] Onset: 4 Unclassified (1 source) Acute cough; Translations: [Acute cough] Onset: 5 Urinary tract infections (2 sources) Urinary tract infectious disease; Translations: [Urinary tract infection, site not specified] Onset: 5 04-24-2025 Episodic Viral infection (6 sources) Disease caused by 2019-nCoV; Translations: [COVID-19] 09-11-2023 Episodic Past or Other Problems Problem Classification Problem Date Documented Da te Episodic/Chronic Coronary atherosclerosis and other heart disease (20 sources) Presence of coronary angioplasty implant and graft; Translations: [Post percutaneous transluminal coronary angioplasty] Onset: 12-09-2016 03-31-2017 Episodic Deficiency and other anemia (1 source) Anemia, unspecified; Translations: [Anemia, unspecified] Onset: 06-05-2024 Episodic Gastritis and duodenitis (7 sources) Bile-induced gastritis; Translations: [Other gastritis without bleeding] Onset: 12-27-2023 04-01-2023 Episodic Immunizations and screening for infectious disease (3 sources) Vaccination needed; Translations: [Encounter for immunization] Onset: 10-18-2024 Episodic Noninfectious gastroenteritis (1 source) Noninfective gastroenteritis and colitis, unspecified; Translations: [Noninfective gastroenteritis and colitis, unspecified] Onset: 07-04-2024 Episodic Other aftercare (7 sources) 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; Translations: [Other care home (current) drug therapy] Onset: 01-20-2017 01-20-2017 Episodic Other and unspecified benign neoplasm (2 sources) Benign neoplasm of right adrenal gland; Translations: [Adenoma of right adrenal gland] Onset: 07-04-2024 Episodic Other circulatory disease (20 sources) History of transient ischemic attack; Translations: [Personal history of transient ischemic attack (TIA), and cerebral infarction without residual deficits] Onset: 10-29-2017 08-02-2018 Episodic Other connective tissue disease (20 sources) Synovial cyst of left popliteal space; Translations: [Synovial cyst of popliteal space [Garibay], left knee] Onset: 03-02-2018 03-02-2018 Episodic Other diseases of kidney and ureters (1 source) Cyst of kidney, acquired; Translations: [Renal cyst] Onset: 07-04-2024 Episodic Other gastrointestinal disorders (7 sources) Diarrhea, unspecified; Translations: [Diarrhea] Onset: 06-05-2024 12-10-2022 Episodic Other lower respiratory disease (11 sources) Dyspnea; Translations: [Dyspnea, unspecified] Onset: 03-31-2017 03-31-2017 Episodic Other nutritional; endocrine; and metabolic disorders (10 sources) Body mass index (BMI) 28.0-28.9, adult; Translations: [Body mass index (BMI) 28.0-28.9, adult] Onset: 01-20-2017 01-20-2017 Episodic Other nutritional; endocrine; and metabolic disorders (1 source) Personal history of other endocrine, nutritional and metabolic disease; Translations: [History of hyperparathyroidism] Onset: 11-03-2021 Episodic Other skin disorders (20 sources) Foot callus; Translations: [Corns and callosities] Onset: 05-26-2021 05-26-2021 Episodic Other skin disorders (20 sources) Disorder of skin; Translations: [Other skin changes] Onset: 09-26-2021 09-26-2021 Episodic Pancreatic disorders (not diabetes) (20 sources) Pancreatic insufficiency; Translations: [Other specified diseases of pancreas] Onset: 04-08-2023 Episodic Residual codes; unclassified (20 sources) Active living will ; Translations: [Other specified health status] Onset: 04-08-2023 04-08-2023 Episodic Residual codes; unclassified (1 source) At risk for infection; Translations: [Other specified personal risk factors, not elsewhere classified] 04-17-2024 Episodic Unclassified (14 sources) Placement of stent in coronary artery ; Translations: [Presence of coronary angioplasty implant and graft] Onset: 01-14-2017 Resolved: 03-31-2017 03-31-2017 Unclassified (12 sources) Encounter for long-term (current) use of other medications 10-22-2017 Unclassified (3 sources) Patient encounter status 03-14-2025 Unclassified (1 source) Long-term current use of tamoxifen 04-09-2025 Results Test Name Value Interpretation Reference Range Facility Bacteria Ur Culton Bacteria identified Cx Nom (U) ORGANISM ID: 1 10,000 -<50,000 CFU/ml Citrobacter freundii complex ORGANISM ID: 1 (CITROBACTER FREUNDII COMPLEX) -- ANTIBIOTIC INTERPRETATION SOFIA STATUS REFERENCE RANGE -- Ampicillin R F Cefepime S <=1 F Susceptible <=2 , Susceptible-Dose Dependent >2 , Resistant >=16 Ertapenem S <=0.5 F Susceptible <=0.5 , Intermediate >.5 , Resistant >1 Meropenem S <=0.25 F Susceptible <=1 , Intermediate >1 , Resistant >2 Ampicillin/Sulbact R F Piperacillin/Tazobac S <=4 F Susceptible <16 , Susceptible-Dose Dependent >=16 , Resistant >=32 Gentamicin S <=1 F Susceptible <=2 , Intermediate >2 , Resistant >=8 Tobramycin S <=1 F Susceptible <4 , Intermediate >=4 , Resistant >=8 Trimeth sulfameth S <=20 F Susceptible <=40 , Resistant >40 Ciprofloxacin S <=0.25 F Susceptible <0.5 , Intermediate >=.5 , Resistant >=1 Nitrofurantoin S <=16 F Susceptible <=32 , Intermediate >32 , Resistant >64 Abnormal [facility] Comment on above: Performed By: #### 6 30-4 ####[facility] LABCLIA [id number] [address] [facility] CNOVon 04-24-2025 CNOV Office Visit (FAMPWS ) AUSTINDOM Vel ([id number]) 1955 F Date Time Provider Department 04/24/25 8:00 AM FRANCINE MADRID During your visit today, we recorded the following information about you: Pulse Blood pressure Weight 68/minute 138/76 63 kg 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 Patient presents for 3 day history of UTI symptoms including Past medical history, appointments, medications, allergies reviewed. 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 Encounter for Medicare annual wellness exam 04/08/2023 Medicare Part B: 07/09/2022 Last done: 04/08/2023 Essential hypertension 01/16/2016 Female pattern hair loss Foot callus 05/26/2021 Gastroesophageal reflux disease without esophagitis 10/18/2024 History of colon polyps History of depression when History of hyperparathyroidism History of transient ischemic attack (TIA) 10/29/2017 06/29/2017 - R homonomous hemianopia with aphasia for couple hours - negative MRI/A following day Irritable bowel syndrome with diarrhea 05/26/2021 Living will on file at physician's office 04/08/2023 DPA: Carmella () Meniere disease, right 10/29/2017 Mixed hyperlipidemia 05/31/2009 statin intolerance Narcolepsy without cataplexy ([facility]) 01/16/2016 Especially with long drives. Has been on provigil for 5-10 yrs Obstructive sleep apnea on CPAP Sibilia Other skin changes 09/26/2021 Seeing derm Pancreatic insufficiency ([facility]) 04/08/[address] Alcantar Psoriasis RLS (restless legs syndrome) 02/22/[address] Aysha Laurent with ocular symptoms S/P angioplasty with stent 01/09/2017 stents to mid and proximal left anterior descending Art, and angio of ostium of #2 diagonal Scalp itch Seasonal allergies Dr Pompa Type 2 diabetes mellitus with hyperlipidemia ([facility]) 04/17/2024 Uterine fibroid 1994? Hysterectomy at age 41 Uterine polyp No longer an issue Vitamin D deficiency 2012 Well adult exam 01/16/2016 Last done: 09/08/2018 Previous Surgical History PAST SURGICAL HISTORY Procedure Laterality Date 2D ECHO (EXEP) 06/30/2017 EF=65%, trivial CT, TI and 1+ PI Unchanged from 04/2017 2D ECHO (EXEP) 05/14/2021 EF=60%, 1+ TI, trival CT, AI, PI 2D ECHO (EXEP) 09/16/2021 EF=60%, no significant valve disease BREAST LUMPECTOMY HX Left 04/08/2021 BUNIONECTOMY, [place]-TYPE 2010 left great toe BX BREAST W/DEVICE 1ST LESION STEREOTACTIC GUID Left 03/25/2021 DELIVERY ONLY CHOLECYSTECTOMY 2004 Cholecystectomy COLONOSCOPY 08/07/2015 no polyps, recheck 3-5 yrs COLONOSCOPY AND POLYPECTOMY 10/12, 10/13 Dr Avila; hyperplastic polyps COLONOSCOPY FLX DX W/COLLJ SPEC WHEN PFRMD 08/09/2018 Colonoscopy ESOPHAGOGASTRODUODENOS COPY TRANSORAL DIAGNOSTIC 08/09/2018 EGD HEART CATHETERIZATION 2004 [...] Onset other (Pancreatic cancer) Mother Coronary Artery Dise (more content not included)... Normal [facility] UA DIP, URINE (POC)on 2024 BILIRUBIN UA (POCT) Small Abnormal Negative [facility] CLARITY UA (POCT) Clear [facility] COLOR UA (POCT) Yellow [facility] GLUCOSE UA (POCT) Negative Negative mg/dL [facility] Hemoglobin Ql (U) Large Abnormal Negative [facility] Interpretation and review of laboratory results Abnormal [facility] KETONE UA (POCT) Trace Negative mg/dL [facility] LEUKOCYTES UA (POCT) Small Abnormal Negative [facility] NITRITE UA (POCT) Negative Negative [facility] PH UA (POCT) 5.5 4.5 - 8.0 [facility] Protein Ql (U) >=300 Abnormal Negative mg/dL [facility] SPECIFIC GRAVITY UA (POCT) >=1.030 1.005 - 1.030 [facility] UROBILINOGEN UA (POCT) 0.2 Normal E.U./d L [facility] Location:[facility], [address] [place] [address], [place], [place], [id number] [place] [address] POINT OF CARE [facility] CNOVon 04-19-2025 CNOV Office Visit (FAMPWS ) DOM AVILA ([id number]) 1955 F Date Time Provider Department 04/19/25 9:00 AM [facility] During your visit today, we recorded the following information about you: Temperature Pulse Respiration Blood pressure 97.2 degrees 58/minute 16/minute 136/72 Weight Height 64.9 kg 1.59 m Cherise Sifuentes PA-C 04/19/2025 11:27 AM Signed Dom Avila is a 69 year old female here for a Medicare wellness visit. Medicare Health Risk Assessment General Health Good Exercise: Minutes/Day Patient declined Exercise: Days/Week Patient declined Alcohol: Daily Use Never Alcohol: Drinks/Day Patient does not drink Alcohol: 6 or more drinks Never Feel off balance No Concerns: Teeth/Dentures No Concerns: Sexual function No Troubled by feelings None of the above Frequency: Eating healthy diet Several days ADLs requiring help None of the above Safety precautions in home/vehicle Yes Smoke, vape, chews tobacco No Difficulty hearing Yes, I wear a hearing aid Difficulty seeing No Current Providers Specialists: I have reviewed specialist-related care of the patient in the medical record. Medical/Family history review Reviewed and updated problem list, medical/surgical/famil y/social history, medications, and allergies. Opioid use review Opioid Medications (last 90 days) No data to display Anxiety/Depression screening PHQ-2 Score: 0 (Lower risk for depression) AMELIA-7 Score: 0. Recommendation: no further intervention at this time Cognitive screening Mini Cog Score: 5 Cognitive screening reviewed and No further action needed (score 3-5). Functional Observation Was the patient's Timed Up AND Go test unsteady or >= 12 seconds? No Advance Care Planning Surrogate decision maker and/or advance care plan documented Measurements BP 136/72 (BP Site: Left Arm, BP Position: Sitting, BP Cuff Size: Regular Adult) Pulse (!) 58 Temp 36.2 ?C (97.2 ?F) Resp 16 Ht 159 cm (5' 2.6) Wt 64.9 kg (143 lb) SpO2 98% BMI 25.66 kg/m? Vision Screening: Follows with optometry/ophthalmolog y Assessment/Plan Medicare annual wellness visit, subsequent (Z00.00) - Counseled on healthy diet and regular exercise - Fall avoidance information provided - Personalized prevention plan provided Chief Complaint Patient presents with: Medicare Wellness Exam HPI Dom Avila is a 69 year old female who presents here today for extensive exam. Patient with hx of HTN, hyperlipidemia, SEBAS, DM2, CAD, hyperparathyroid, hx of breast cancer, and those as below. Patient doing well overall. She is following endocrine for a benign adrenal mass and will see them in 1 yr for repeat imaging. Past medical history, appointments, medications, allergies reviewed. 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 Cataract Coitus painful for female Have already addressed Colon polyp 2011 Controlled type 2 diabetes [...] Female pattern hair loss Foot callus 05/26/2021 Gastroesophageal reflux disease without esophagitis 10/18/2024 History of colon polyps History of depression when History of hyperparathyroidism History of transient ischemic attack (TIA) 10/29/2017 06/29/2017 - R homonomous hemianopia with aphasia for couple hours - negative MRI/A following day Irritable bowel syndrome with diarrhea 05/26/2021 Living will on file at physician's office 04/08/2023 DPA: Carmella () Meniere disease, right 10/29/2017 Mixed hyperlipidemia 05/31/2009 statin intolerance 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 Has been on provigil for 5-10 yrs Obstructive sleep apnea on CPAP Sibilia Other skin changes 09/26/2021 Seeing derm Pancreatic insufficiency (HCC) 04/08/[address] Alcantar Psoriasis RLS (restless legs syndrome) 02/22/[address] Aysha Laurent with ocular symptoms S/P angioplasty with stent 01/09/2017 stents to mid and proximal left anterior descending Art, and angio of o (more content not included)... Normal [facility] CNOVon 04-09-2025 CNOV Office Visit (OBGYWM ) AUSTINDOM Vel ([id number]) 1955 F Date Time Provider Department 04/09/25 9:30 AM SIMA DUMONT OBDORIAN During your visit today, we recorded the following information about you: Blood pressure Weight Height 156/90 64.9 kg 1.59 m Sima Dumont APRN.CNP 04/09/2025 9:59 AM Signed Advertising Sales Executive offered: Patient declines. Dom is a 69 year old who presents for an annual gynecologic exam without complaints. Nodule on adrenal gland - seeing block sorter. Postmenopausal: Hysterectomy at age 41 benign fibroid, ovary sparing HRT use: None. 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 Estrogen progesterone receptors positive ( >95%); HER-2/brandin negative (0) Tamoxifen x 4 years - planned for 5 years OB History Gravida4 Para3 Term0 Preterm0 AB0 Living2 SAB0 IAB0 Ectopic0 Multiple0 Live Births3 Tobacco Stemmer History LMP: Hysterectomy Age at Menarche: 13 Age at First : Age at Menopause: Tobacco Stemmer History Comments: Sexual Activity: Yes; Male Contraception: None PAST MEDICAL HISTORY Diagnosis Date Advance directive discussed with patient 04/08/2023 Discussed 03/2023: Up to date Amaurosis fugax 10/29/2017 TIA; right visual disturbance 06/2017 Arthritis tendonitis, arthritis 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 Cataract Coitus painful for female Have already addressed Colon polyp 2011 Controlled type 2 diabetes [...] Female pattern hair loss Foot callus 05/26/2021 Gastroesophageal reflux disease without esophagitis 10/18/2024 History of colon polyps History of depression when History of hyperparathyroidism History of transient ischemic attack (TIA) 10/29/2017 06/29/2017 - R homonomous hemianopia with aphasia for couple hours - negative MRI/A following day Irritable bowel syndrome with diarrhea 05/26/2021 Living will on file at physician's office 04/08/2023 DPA: Carmella () Meniere disease, right 10/29/2017 Mixed hyperlipidemia 05/31/2009 statin intolerance Narcolepsy without cataplexy ([facility]) 01/16/2016 Especially with long drives. Has been on provigil for 5-10 yrs Obstructive sleep apnea on CPAP Sibilia Other skin changes 09/26/2021 Seeing yosef Pancreatic insufficiency ([facility]) 04/08/[address] Alcantar Psoriasis RLS (restless legs syndrome) 02/22/[address] Aysha Laurent with ocular symptoms S/P angioplasty with stent 01/09/2017 stents to mid and proximal left anterior descending Art, and angio of ostium of #2 diagonal Scalp itch Seasonal allergies Dr Pompa Type 2 diabetes mellitus with hyperlipidemia ([facility]) 04/17/2024 Uterine fibroid 1994? Hysterectomy at age 41 Uterine polyp No longer an issue Vitamin D deficiency 2012 Well adult exam 01/16/2016 Last done: 09/08/2018 PAST SURGICAL HISTORY Procedure Laterality Date 2D ECHO (EXEP) 06/30/2017 EF=65%, trivial CT, TI and 1+ PI Unchanged from 04/2017 2D ECHO (EXEP) 05/14/2021 EF=60%, 1+ TI, trival CT, AI, PI 2D ECHO (EXEP) 09/16/2021 EF=60%, no significant valve disease BREAST LUMPECTOMY HX Left 04/08/2021 BUNIONECTOMY, [place]-TYPE 2009 left great toe BX BREAST W/DEVICE 1ST LESION STEREOTACTIC GUID Left 03/25/2021 DELIVERY ONLY CHOLECYSTECTOMY 2004 Cholecystectomy COLONOSCOPY 08/07/2015 no polyps, recheck 3-5 yrs COLONOSCOPY AND POLYPECTOMY 10/12, 10/13 Dr Avila; hyperplastic polyps COLONOSCOPY FLX DX W/COLLJ SPEC WHEN PFRMD 08/09/2018 Colonoscopy ESOPHAGOGASTRODUODENOS COPY TRANSORAL DIAGNOSTIC 08/09/2018 EGD HEART CATHETERIZATION 2004 heart cath-normal per patient HEART CATHETERIZATION 01/04/2017 EF=60%, left anterior desending septal perferator 95-99% stenosis and diagonal branch 85% stenosis, HEART CATHETERIZATION 10/2018 HEART SURGERY HX 12/2016 Cardiac stents x 2 LOW BACK DISK SURGERY 2010 microdecompression L4 L5 MASTECTOMY, PARTIAL Left 04/08/2021 PAST SURGICAL H (more content not included)... Normal [facility] 25(OH)D3 SerPl-ncon 2024 25-hydroxyvitamin D3 [Mass/Vol] 29.6 ng/mL Low 31.0-80.0 [facility] Comment on above: Order Comment: Speci men Type: BLOOD SPECIMENOrdering Facility: [facility] Address: [address] [place] [address] Performed By: #### 1 989-3 ####[facility] LABIA [id number] [place] [address] [place] ALBUMIN/CREATININE RATIO, UR INEon 04-06-2025 Albumin DL <= 20 mg/L (U) [Mass/Vol] mg/dL Normal [facility] Comment on above: Order Comment: Speci men Type: URINE SPECIMENOrdering Facility: [facility] Address: [address] [place] [address] Performed By: #### U ACR ####[facility] INSTITUTEIA [id number] [place] [address] [place] Albumin/Creatinine (U) [Mass ratio] <15 Normal <30 [facility] Comment on above: Order Comment: Speci men Type: URINE SPECIMENOrdering Facility: [facility] Address: [address] [place] [address] Result Comment: Adul t Male and Female Nephrotic Criteria: <30 mg/g is considered normal to mildly increased 30-300 mg/g is considered moderately increased >300 mg/g is considered severely increased KDIGO. (2013). KDIGO 2012 Clinical Practice Guideline for the Evaluation and Management of Chronic Kidney Disease. Official Journal of the International Society of Nephrology, 3(1), 1-150. Performed By: #### U ACR ####[facility] LABIA [id number] [place] [id number] [place] Creatinine (U) [Mass/Vol] 81.5 mg/dL Normal 20.0-300.0 [facility] Comment on above: Order Comment: Speci men Type: URINE SPECIMENOrdering Facility: [facility] Address: [address] [place] [address] Performed By: #### U ACR ####[facility] LABCLIA [id number] [place] [address] [place] CBC W Auto Differential pane l (Bld)on 04-06-2025 Basophils (Bld) [#/Vol] 0.03 10*3/uL Normal <0.11 [facility] Comment on above: Order Comment: Speci men Type: BLOOD SPECIMENOrdering Facility: [facility] Address: [address] [place] [address] Performed By: #### 5 7021-8 ####[facility] [id number] [place] [address] [place] Basophils/100 WBC (Bld) 0.3 % Normal [facility] Comment on above: Order Comment: Speci men Type: BLOOD SPECIMENOrdering Facility: [facility] Address: [address] [place] [address] Performed By: #### 5 7021-8 ####[facility] [id number] [place] [address] [place] Differential cell count method Nom (Bld) Auto Normal [facility] Comment on above: Order Comment: Speci men Type: BLOOD SPECIMENOrdering Facility: [facility] Address: [address] [place] [address] Performed By: #### 5 7021-8 ####[facility] [id number] [place] [address] [place] Eosinophils (Bld) [#/Vol] 0.12 10*3/uL Normal <0.46 [facility] Comment on above: Order Comment: Speci men Type: BLOOD SPECIMENOrdering Facility: [facility] Address: [address] [place] [address] Performed By: #### 5 7021-8 ####[facility]LES HOSPITALNADIALIA [id number] [place] [address] [place] Eosinophils/100 WBC (Bld) 1.4 % Normal [facility] Comment on above: Order Comment: Speci men Type: BLOOD SPECIMENOrdering Facility: [facility] Address: [address] [place] [address] Performed By: #### 5 7021-8 ####[facility] NASSAUGREYSONLILLIANA [id number] [place] [address] [place] Erythrocyte distribution width (RBC) [Ratio] 13.8 % Normal 11.5-15.0 [facility] Comment on above: Order Comment: Speci men Type: BLOOD SPECIMENOrdering Facility: [facility] Address: [address] [place] [address] Performed By: #### 5 7021-8 ####[facility]SAUGREYSONRIVERTON HOSPITAL [id number] [place] [address] [place] Hematocrit (Bld) [Volume fraction] 37.9 % Normal 36.0-46.0 [facility] Comment on above: Order Comment: Speci men Type: BLOOD SPECIMENOrdering Facility: [facility] Address: [address] [place] [address] Performed By: #### 5 7021-8 ####[facility] NASSAUNCLIA [id number] [place] [address] [place] Hemoglobin (Bld) [Mass/Vol] 12.4 g/dL Normal 11.5-15.5 [facility] Comment on above: Order Comment: Speci men Type: BLOOD SPECIMENOrdering Facility: [facility] Address: [address] [place] [address] Performed By: #### 5 7021-8 ####[facility] NASSAUNCLIA [id number] [place] [address] [place] Immature granulocytes (Bld) [#/Vol] 0.03 10*3/uL Normal <0.10 [facility] Comment on above: Order Comment: Speci men Type: BLOOD SPECIMENOrdering Facility: [facility] Address: [address] [place] [address] Performed By: #### 5 7021-8 ####[facility] [id number] [place] [address] [place] Immature granulocytes/100 WBC (Bld) 0.3 % Normal [facility] Comment on above: Order Comment: Speci men Type: BLOOD SPECIMENOrdering Facility: [facility] Address: [address] [place] [address] Performed By: #### 5 7021-8 ####[facility] [id number] [place] [address] [place] Lymphocytes (Bld) [#/Vol] 2.26 10*3/uL Normal 1.00-4.00 [facility] Comment on above: Order Comment: Speci men Type: BLOOD SPECIMENOrdering Facility: [facility] Address: [address] [place] [address] Performed By: #### 5 7021-8 ####[facility] [id number] [place] [address] [place] Lymphocytes/100 WBC (Bld) 26.3 % Normal [facility] Comment on above: Order Comment: Speci men Type: BLOOD SPECIMENOrdering Facility: [facility] Address: [address] [place] [address] Performed By: #### 5 7021-8 ####[facility] [id number] [place] [address] [place] MCH (RBC) [Entitic mass] 30.4 pg Normal 26.0-34.0 [facility] Comment on above: Order Comment: Speci men Type: BLOOD SPECIMENOrdering Facility: [facility] Address: [address] [place] [address] Performed By: #### 5 7021-8 ####[facility] LETYWNCLIA [id number] [place] [address] [place] MCHC (RBC) [Mass/Vol] 32.7 g/dL Normal 30.5-36.0 [facility] Comment on above: Order Comment: Speci men Type: BLOOD SPECIMENOrdering Facility: [facility] Address: [address] [place] [address] Performed By: #### 5 7021-8 ####[facility] NASSAUNCYADIRAA [id number] [place] [address] [place] MCV (RBC) [Entitic vol] 92.9 fL Normal 80.0-100.0 [facility] Comment on above: Order Comment: Speci men Type: BLOOD SPECIMENOrdering Facility: [facility] Address: [address] [place] [address] Performed By: #### 5 7021-8 ####[facility] FOR REHABILITATIONLIA [id number] [place] [address] [place] Monocytes (Bld) [#/Vol] 0.73 10*3/uL Normal <0.87 [facility] Comment on above: Order Comment: Speci men Type: BLOOD SPECIMENOrdering Facility: [facility] Address: [address] [place] [address] Performed By: #### 5 7021-8 ####[facility] NASSAUNCLIA [id number] [place] [address] [place] Monocytes/100 WBC (Bld) 8.5 % Normal [facility] Comment on above: Order Comment: Speci men Type: BLOOD SPECIMENOrdering Facility: [facility] Address: [address] [place] [address] Performed By: #### 5 7021-8 ####[facility] FOR REHABILITATIONLIA [id number] [place] [address] [place] Neutrophils (Bld) [#/Vol] 5.41 10*3/uL Normal 1.45-7.50 [facility] Comment on above: Order Comment: Speci men Type: BLOOD SPECIMENOrdering Facility: [facility] Address: [address] [place] [address] Performed By: #### 5 7021-8 ####[facility] [id number] [place] [address] [place] Neutrophils/100 WBC (Bld) 63.2 % Normal [facility] Comment on above: Order Comment: Speci men Type: BLOOD SPECIMENOrdering Facility: [facility] Address: [address] [place] [address] Performed By: #### 5 7021-8 ####[facility] [id number] [place] [address] [place] Nucleated RBC (Bld) [#/Vol] 10*3/uL Normal <0.01 [facility] Comment on above: Order Comment: Speci men Type: BLOOD SPECIMENOrdering Facility: [facility] Address: [address] [place] [address] Performed By: #### 5 7021-8 ####[facility] [id number] [place] [address] [place] Nucleated RBC/100 WBC (Bld) [Ratio] 0.0 /100 WBC Normal [facility] Comment on above: Order Comment: Speci men Type: BLOOD SPECIMENOrdering Facility: [facility] Address: [address] [place] [address] Performed By: #### 5 7021-8 ####[facility] NASSAUNCLI [id number] [place] [address] [place] Platelet mean volume (Bld) [Entitic vol] 9.6 fL Normal 9.0-12.7 [facility] Comment on above: Order Comment: Speci men Type: BLOOD SPECIMENOrdering Facility: [facility] Address: [address] [place] [address] Performed By: #### 5 7021-8 ####[facility] NASSAUNCLIA [id number] [place] [address] [place] Platelets (Bld) [#/Vol] 178 10*3/uL Normal 150-400 [facility] Comment on above: Order Comment: Speci men Type: BLOOD SPECIMENOrdering Facility: [facility] Address: [address] [place] [address] Performed By: #### 5 7021-8 ####[facility]SAUNCRIVERTON HOSPITAL [id number] [place] [address] [place] RBC (Bld) [#/Vol] 4.08 10*6/uL Normal 3.90-5.20 [facility] Comment on above: Order Comment: Speci men Type: BLOOD SPECIMENOrdering Facility: [facility] Address: [address] [place] [address] Performed By: #### 5 7021-8 ####[facility] NASSAUNCA [id number] [place] [address] [place] WBC (Bld) [#/Vol] 8.58 10*3/uL Normal 3.70-11.00 [facility] Comment on above: Order Comment: Speci men Type: BLOOD SPECIMENOrdering Facility: [facility] Address: [address] [place] [address] Performed By: #### 5 7021-8 ####[facility] NASSAUNCLIA [id number] [place] [address] [place] Comprehensive metabolic 2000 panelon 04-06-2025 Albumin [Mass/Vol] 3.7 g/dL Low 3.9-4.9 [facility] Comment on above: Order Comment: Speci men Type: BLOOD SPECIMENOrdering Facility: [facility] Address: [address] [place] [address] Performed By: #### 1 9123-9, 19388-7 ####[facility] MILLTOWNCLIA [id number] [place] [address] [place] ALP [Catalytic activity/Vol] 49 U/L Normal 34-123 [facility] Comment on above: Order Comment: Speci men Type: BLOOD SPECIMENOrdering Facility: [facility] Address: [address] [place] [address] Performed By: #### 1 9123-9, 12518-0 ####[facility] MILLTOWNCLIA [id number] [place] [address] [place] ALT [Catalytic activity/Vol] 11 U/L Normal 7-38 [facility] Comment on above: Order Comment: Speci men Type: BLOOD SPECIMENOrdering Facility: [facility] Address: [address] [place] [address] Performed By: #### 1 9123-9, 38122-9 ####[facility] SE[facility]INGWNCLIA [id number] [place] [address] [place] Anion gap [Moles/Vol] 11 mmol/L Normal 8-15 [facility] Comment on above: Order Comment: Speci men Type: BLOOD SPECIMENOrdering Facility: [facility] Address: [address] [place] [address] Performed By: #### 1 9123-9, 75008-7 ####[facility] SEBRINGWNCLIA [id number] [place] [address] [place] AST [Catalytic activity/Vol] 17 U/L Normal 13-35 [facility] Comment on above: Order Comment: Speci men Type: BLOOD SPECIMENOrdering Facility: [facility] Address: [address] [place] [address] Performed By: #### 1 9123-9, 32961-2 ####[facility] MILLTOWNCLIA [id number] [place] [address] [place] Bilirubin [Mass/Vol] 0.3 mg/dL Normal 0.2-1.3 [facility] Comment on above: Order Comment: Speci men Type: BLOOD SPECIMENOrdering Facility: [facility] Address: [address] [place] [address] Performed By: #### 1 9123-9, 16405-8 ####[facility] MILLTOWNCLIA [id number] [place] [address] [place] Calcium [Mass/Vol] 9.0 mg/dL Normal 8.5-10.2 [facility] Comment on above: Order Comment: Speci men Type: BLOOD SPECIMENOrdering Facility: [facility] Address: [address] [place] [address] Performed By: #### 1 9123-9, 00998-9 ####[facility]INGWNCLIA [id number] [place] [address] [place] Chloride [Moles/Vol] 104 mmol/L Normal 98-107 [facility] Comment on above: Order Comment: Speci men Type: BLOOD SPECIMENOrdering Facility: [facility] Address: [address] [place], [place] [address] Performed By: #### 1 9123-9, ####[facility] MILLTOWNCLIA [id number] [place] [address] [place] CO2 [Moles/Vol] 26 mmol/L Normal 22-30 [facility] Comment on above: Order Comment: Speci men Type: BLOOD SPECIMENOrdering Facility: [facility] Address: [address] [place] [address] Performed By: #### 1 9123-9, 90837-0 ####[facility] NASSAUNCLIA [id number] [place] [address] [place] Creatinine [Mass/Vol] 0.79 mg/dL Normal 0.58-0.96 [facility] Comment on above: Order Comment: Taran acevedo Type: BLOOD SPECIMENOrdering Facility: [facility] Address: [address] [place] [address] Performed By: #### 1 9123-9, 59880-4 ####[facility] [id number] [place] [address] [place] Creatinine and Glomerular filtration rate.predicted panel (S/P/Bld) 82 mL/min/1.73m??? Normal >=60 [facility] Comment on above: Order Comment: Taran acevedo Type: BLOOD SPECIMENOrdering Facility: [facility] Address: [address] [place] [address] Result Comment: Richa mated Glomerular Filtration Rate (eGFR) is calculated using the 2020 CKD-EPI creatinine equation. This equation utilizes serum creatinine, sex, and age as parameters. The creatinine assay has traceable calibration to isotope dilution-mass spectrometry. Refer to KDIGO guidelines for clinical interpretation. In patients with unstable renal function, e.g. those with acute kidney injury, the eGFR may not accurately reflect actual GFR. Performed By: #### 1 9123-9, 72921-9 ####[facility] REHABILITATIONLIA [id number] [place] [address] [place] Glucose [Mass/Vol] 115 mg/dL High 74-99 [facility] Comment on above: Order Comment: Spectina men Type: BLOOD SPECIMENOrdering Facility: [facility] Address: [address] [place] [id number] Result Comment: The [place] [employer] (ADA) provides guidance for cutoff values for fasting glucose and random glucose. The ADA defines fasting as no caloric intake for at least 8 hours. Fasting plasma glucose results between 100 to 125 [...] Standards of Medical Care in Diabetes 2016, [place] [employer]. Diabetes Care. 2016.39(Suppl 1). Performed By: #### 1 9123-9, ####[facility] MILLTOWGREYSONLIA [id number] [place] [address] [place] Potassium [Moles/Vol] 4.0 mmol/L Normal 3.7-5.1 [facility] Comment on above: Order Comment: Speci men Type: BLOOD SPECIMENOrdering Facility: [facility] Address: [address] [place] [address] Performed By: #### 1 91239, ####[facility] SEBRINGWGRESYONLIArt [id number] [place] [address] [place] Protein [Mass/Vol] 6.6 g/dL Normal 6.3-8.0 [facility] Comment on above: Order Comment: Speci men Type: BLOOD SPECIMENOrdering Facility: [facility] Address: [address] [place] [address] Performed By: #### 1 9123-9, ####[facility] SEBRINGWGREYSONLIA [id number] [place] [address] [place] Sodium [Moles/Vol] 141 mmol/L Normal 136-144 [facility] Comment on above: Order Comment: Speci men Type: BLOOD SPECIMENOrdering Facility: [facility] Address: [address] [place] [address] Performed By: #### 1 9123-9, ####[facility] SEBRINGWGREYSONLIA [id number] [place] [address] [place] Urea nitrogen [Mass/Vol] 15 mg/dL Normal 7-21 [facility] Comment on above: Order Comment: Taran acevedo Type: BLOOD SPECIMENOrdering Facility: [facility] Address: [address] [place] [address] Performed By: #### 1 9123-9, 85169-8 ####[facility] [id number] [place] [address] [place] HbA1c (Bld)on 04-06-2025 Average glucose Estimated from glycated hemoglobin (Bld) [Mass/Vol] 160 mg/dL Normal [facility] Comment on above: Order Comment: Taran acevedo Type: BLOOD SPECIMENOrdering Facility: [facility] Address: [address] [place] [address] Result Comment: eAG: (Estimated average glucose) is a calculated value from HgbA1c and is healthcare sales representative of the average blood glucose level in the last 2-3 month period. Performed By: #### 5 5454-3 ####[facility] LABCLIA [id number] [place] [address] [place] HbA1c (Bld) [Mass fraction] 7.2 % High 4.3-5.6 [facility] Comment on above: Order Comment: Taran acevedo Type: BLOOD SPECIMENOrdering Facility: [facility] Address: [address] [place] [address] Result Comment: Amer ican Diabetes Association guidelines indicate that patients with HgbA1c in the range 5.7-6.4% are at increased risk for development of diabetes, and intervention by lifestyle modification may be beneficial. HgbA1c greater or equal to 6.5% is considered diagnostic of diabetes. Performed By: #### 5 5454-3 ####[facility] LABCLIA [id number] [place] [id number] [place] LIPID PANEL, NONFASTINGon Cholesterol [Mass/Vol] 152 mg/dL Normal <200 [facility] Comment on above: Order Comment: Taran acevedo Type: BLOOD SPECIMENOrdering Facility: [facility] Address: [address] [place] [address] Result Comment: <200 mg/dL, Desirable 200-239 mg/dL, Borderline high >239 mg/dL, High Performed By: #### 2 132-9, 3016-3, LIPNF ####[facility] LABCLIA [id number] [facility] [id number] [place], [place] [id number] [place] HDL CHOLESTEROL, NF 38 mg/dL Low >39 [facility] Comment on above: Order Comment: Speci men Type: BLOOD SPECIMENOrdering Facility: [facility] Address: [address] [place] [address] Result Comment: 40-5 9 mg/dL, Acceptable >59 mg/dL, High: Negative risk factor for coronary heart disease <40 mg/dL, Low: Positive risk factor for coronary heart disease Performed By: #### 2 132-9, 3016-3, LIPNF ####[facility] LABCLIA [id number] [address] [place] LDL CHOLESTEROL CALCULATED, NF 94 mg/dL Normal <100 [facility] Comment on above: Order Comment: Speci men Type: BLOOD SPECIMENOrdering Facility: [facility] Address: [address] [place] [address] Result Comment: <100 mg/dL, Optimal 100-129 mg/dL, Near optimal/above optimal 130-159 mg/dL, Borderline high 160-189 mg/dL, High >189 mg/dL, Very high Secondary prevention optimal LDL Cholesterol levels are recommended to be <70 mg/dL LDL cholesterol is calculated using the Silverio-NIH equation. Performed By: #### 2 132-9, 3016-3, LIPNF ####[facility] LABCLIA [id number] [place] [id number] [place] LDL/HDL RATIO, NF 2.47 mg/dL Normal <2.54 [facility] Comment on above: Order Comment: Speci men Type: BLOOD SPECIMENOrdering Facility: [facility] Address: [address] [place] [address] Result Comment: Michaelle mayes: 1. National Cholesterol Education Program ATP III Guideline At-A-Glance Quick Desk Reference: National Heart, Lung, and Blood [place]. National Institutes of Health. 2001: NIH Publication No. 01-3305. 2. An International Atherosclerosis Society position paper: global recommendations for the management of dyslipidemia: executive summary, Atherosclerosis. 2014: 232(2):410-413. Performed By: #### 2 132-9, 3016-3, LIPNF ####[facility] LABCLIA [id number] [place] [address] [place] NON HDL CHOL, NF 114 mg/dL Normal <130 [facility] Comment on above: Order Comment: Speci men Type: BLOOD SPECIMENOrdering Facility: [facility] Address: [address] [place] [address] Result Comment: <130 mg/dL, Optimal 130-159 mg/dL, Near optimal/above optimal 160-189 mg/dL, Borderline high 190-219 mg/dL, High >219 mg/dL, Very high Secondary prevention optimal non HDL Cholesterol levels are recommended to be <100 mg/dL Performed By: #### 2 132-9, 3016-3, LIPNF ####[facility] LABCLIA [id number] [place] [address] [place] T CHOL/HDL RATIO NF 4.00 mg/dL Normal <5.10 [facility] Comment on above: Order Comment: Speci men Type: BLOOD SPECIMENOrdering Facility: [facility] Address: [address] [place] [address] Performed By: #### 2 132-9, 3016-3, LIPNF ####[facility] LABCLIA [id number] [place] [id number] [place] TRIGLYCERIDES, NF 106 mg/dL Normal <150 [facility] Comment on above: Order Comment: Speci men Type: BLOOD SPECIMENOrdering Facility: [facility] Address: [address] [place] [address] Result Comment: <150 mg/dL, Normal 150-199 mg/dL, Borderline high 200-499 mg/dL, High >499 mg/dL, Very high Performed By: #### 2 132-9, 3016-3, LIPNF ####[facility] LABCLIA [id number] [place] [address] [place] VLDL CHOLESTEROL, NF 17 mg/dL Normal <30 [facility] Comment on above: Order Comment: Speci men Type: BLOOD SPECIMENOrdering Facility: [facility] Address: [address] [place] [address] Performed By: #### 2 132-9, 3016-3, LIPNF ####[facility] LABCLIA [id number] [place] [address] [place] Magnesium SerPl-mCncon 04-06 Magnesium [Mass/Vol] 1.6 mg/dL Low 1.7-2.3 [facility] Comment on above: Order Comment: Speci men Type: BLOOD SPECIMENOrdering Facility: [facility] Address: [address] [place] [address] Performed By: #### 1 9123-9, 62160-7 ####[facility] [id number] [place] [address] [place] TSH SerPl-aCncon 04-06-2025 TSH Qn 3.870 m[IU]/L Normal 0.270-4.200 [facility] Comment on above: Order Comment: Speci men Type: BLOOD SPECIMENOrdering Facility: [facility] Address: [address] [place] [address] Performed By: #### 2 132-9, 3016-3, LIPNF ####[facility] LABCLIA [id number] [place] [id number] [place] Urinalysis complete panel (U )on 04-06-2025 BACTERIA UL 1513.2 uL High Negative [facility] Comment on above: Order Comment: Speci men Type: URINE SPECIMENOrdering Facility: [facility] Address: [address] [place] [address] Performed By: #### 2 4356-8 ####[facility] LABCLIA [id number] [address], [facility] [place] Bilirubin Ql (U) Negative Normal Negative [facility] Comment on above: Order Comment: Speci men Type: URINE SPECIMENOrdering Facility: [facility] Address: [address] [place] [address] Performed By: #### 2 4356-8 ####[facility] LABCLIA [id number] [place] [address] [place] Clarity (Unsp spec) Clear Normal Clear [facility] Comment on above: Order Comment: Speci men Type: URINE SPECIMENOrdering Facility: [facility] Address: [address] [place] [address] Performed By: #### 2 4356-8 ####[facility] LABCLIA [id number] [place] [address] [place] Color (U) Yellow Normal Yellow [facility] Comment on above: Order Comment: Speci men Type: URINE SPECIMENOrdering Facility: [facility] Address: [address] [place] [address] Performed By: #### 2 4356-8 ####[facility] LABCLIA [id number] [place] [address] [place] Epithelial cells LM.HPF (Urine sed) [#/Area] Moderate Normal [facility] Comment on above: Order Comment: Speci men Type: URINE SPECIMENOrdering Facility: [facility] Address: [address] [place] [address] Performed By: #### 2 4356-8 ####[facility] LABCLIA [id number] [place] [address] [place] Glucose Test strip (U) [Mass/Vol] Negative Normal Negative [facility] Comment on above: Order Comment: Speci men Type: URINE SPECIMENOrdering Facility: [facility] Address: [address] [place] [address] Performed By: #### 2 4356-8 ####[facility] LABCLIA [id number] [place] [address] [place] Hemoglobin Ql (U) Negative Normal Negative [facility] Comment on above: Order Comment: Speci men Type: URINE SPECIMENOrdering Facility: [facility] Address: [address] [place] [address] Performed By: #### 2 4356-8 ####[facility] LABCLIA [id number] [place] [address] [place] Hyaline casts (Urine sed) [#/Area] 0 /[LPF] Normal 0 /LPF [facility] Comment on above: Order Comment: Speci men Type: URINE SPECIMENOrdering Facility: [facility] Address: [address] [place] [address] Performed By: #### 2 4356-8 ####[facility] LABCLIA [id number] [place] [address] [place] Ketones Ql (U) Negative Normal Negative [facility] Comment on above: Order Comment: Speci men Type: URINE SPECIMENOrdering Facility: [facility] Address: [address] [place] [address] Performed By: #### 2 4356-8 ####[facility] LABCLIA [id number] [place] [address] [place] Leukocyte esterase Test strip Ql (U) 3+ Abnormal Negative [facility] Comment on above: Order Comment: Speci men Type: URINE SPECIMENOrdering Facility: [facility] Address: [address] [place] [address] Performed By: #### 2 4356-8 ####[facility] LABCLIA [id number] [address], [facility] [place] Nitrite Ql (U) Negative Normal Negative [facility] Comment on above: Order Comment: Speci men Type: URINE SPECIMENOrdering Facility: [facility] Address: [address] [place] [address] Performed By: #### 2 4356-8 ####[facility] LABIA [id number] [address], [place] [address] [place] pH (U) 7.0 [pH] Normal <8.5 [facility] Comment on above: Order Comment: Speci men Type: URINE SPECIMENOrdering Facility: [facility] Address: [address] [place] [address] Performed By: #### 2 4356-8 ####[facility] LABIA [id number] [address], [place] [address] [place] Protein (U) [Mass/Vol] Negative Normal Negative [facility] Comment on above: Order Comment: Speci men Type: URINE SPECIMENOrdering Facility: [facility] Address: [address] [place] [address] Performed By: #### 2 4356-8 ####[facility] LABIA [id number] [address], [place] [address] [place] RBC LM.HPF (Urine sed) [#/Area] 0-2 /HPF Normal 0-2 /HPF [facility] Comment on above: Order Comment: Speci men Type: URINE SPECIMENOrdering Facility: [facility] Address: [address] [place] [address] Performed By: #### 2 4356-8 ####[facility] LABIA [id number] [place] [address] [place] Specific gravity (U) [Rel density] 1.014 Normal 1.005-1.030 [facility] Comment on above: Order Comment: Speci men Type: URINE SPECIMENOrdering Facility: [facility] Address: [address] [place] [address] Performed By: #### 2 4356-8 ####[facility] LABIA [id number] [place] [address] [place] Urobilinogen Ql (U) 0.2 EU/dL Normal 0.2-1.0 EU/dL Cl [facility] Comment on above: Order Comment: Speci men Type: URINE SPECIMENOrdering Facility: [facility] Address: [address] [place] [address] Performed By: #### 2 4356-8 ####[facility] [id number] [place] [address] [place] WBC LM.HPF (Urine sed) [#/Area] 11-20 /HPF Abnormal 0-5 /HPF [facility] Comment on above: Order Comment: Speci men Type: URINE SPECIMENOrdering Facility: [facility] Address: [address] [place] [address] Performed By: #### 2 4356-8 ####[facility] [id number] [place] [address] [place] Vit B12 SerPl-ncon 05-30-2 025 Cobalamin (Vitamin B12) [Mass/Vol] 609 pg/mL Normal 232-1245 [facility] Comment on above: Order Comment: Speci men Type: BLOOD SPECIMENOrdering Facility: [facility] Address: [address] [place] [address] Performed By: #### 2 132-9, 3016-3, LIPNF ####[facility] [id number] [place] [address] [place] CNOVSPon 03-21-2025 CNOVSP Visit (SP) Office (HEMAWS) DOM AVILA ([id number]) 1955 F Date Time Provider Department 03/21/25 8:00 AM CHAD MARIEE During your visit today, we recorded the following information about you: Temperature Pulse Blood pressure Weight 97.6 degrees 63/minute 163/88 65.2 kg Chad Mariee APRN.REPAIRER RESISTANCE WELDING MACHINES 03/22/2025 1:28 PM Signed Chief Complaint Patient presents with: Established Patient HPI: Dom Avila is a 69 year old female who presents here today for follow up DCIS. Per Dr. Georges previous note: H/o ecr-rtnmtfj-nomjaaixc diabetes mellitus, hypertension, ASCAD, and TIA who [...] breast lumpectomy for DCIS on 04/08/2021 at [facility] Pathology (from [facility]) reveals - ductal carcinoma in situ...,size of DCIS - 1.0 x 0.4 cm...,architectural type - cribriform..., nuclear grade 1-2..., necrosis - present central (expansive comedo necrosis)..., biopsy cavity is 0.5 cm from closest anterior margin (which is skin)..., ER >95%, LA >95% Postoperative course is unremarkable with no swelling or pain in her lumpectomy site. She is here today to discuss adjuvant therapy and chemoprevention for breast cancer. RADIATION:06/03/21 - 06/24/21 Current therapy:Tamoxifen Began after radiation No new concerns today. Appetite:It's not like it used to be. Wt. up 4# since 2023. Energy level:Pretty good. Denies fevers or recent illness. +covid in 2024 Resp:denies cough or sob-follow up by PULM h/o seasonal allergies/sleep apnea-wears CPAP at hs Sometimes-not much lately. Cardiac:denies chest pain/occ. palpitations-Followed by cardiology twice yearly GI:denies abd pain, n/v, h/o IBS, occ. constipation/diarrhea- followed by Dr. Alcantar/GI :denies dysuria/hematuria Extrem:denies pain Endo:denies hot flashes Neuro:denies symptoms of neuropathy Skin:denies rashes/lesions Heme:denies bleeding, over due for RUNSTITCHING MACHINE OPERATOR exam The ROS is otherwise negative. Past medical history, appointments, medications, allergies reviewed. No changes. EXAM: BP 163/88 Pulse 63 Temp 36.4 ?C (97.6 ?F) (Temporal) Wt 65.2 kg (143 lb 11.8 oz) SpO2 97% BMI 25.46 kg/m? APPEARANCE Well appearing, alert, in no acute distress, well-hydrated, well nourished. HEART RRR with normal S1 and S2, no murmurs LUNG clear to auscultation BREAST FEMALE no mass/nodule b/l LYMPH NODES No cervical lymphadenopathy, No supraclavicular [...] on exam. - Tolerating tamoxifen well. - Reviewed mammogram with pt. - Continue tamoxifen. - Mammogram due March 2026. 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 - Needs follow up/yearly pelvic with RUNSTITCHING MACHINE OPERATOR-Marck Dumont CNP. - Follow up in 6 months. - Pt. aware to call office with any questions/concerns. The patient indicates understanding of these issues and agrees with the plan. All documentation from previous visit of 09/14/24-Dr. Georges/myself was copied and pasted, documentation has been reviewed and edited as necessary for today's visit. Chad Mariee APRN.REPAIRER RESISTANCE WELDING MACHINES Referring Provider: CHAD MARIEE [[id number]] Allergies As of Date: 03/21/2025 Noted Allergy Reaction BRILINTA (TICAGRELOR) 06/28/2017 12 - Shortness of Breath CRESTOR (ROSUVASTATIN) 04/10/2020 17 - Myalgia KEFLEX (CEPHALEXIN) 02/02/2006 14 - Other: See Comments Comments: facial flushing LIPITOR (ATORVASTATIN) 07/21/2013 14 - Other: See Comments Comments: myalgia LOVASTATIN (more content not included)... Normal [facility] CNOVon 03-16-2025 CNOV Office Visit (ENWSTR ) DOM AVILA ([id number]) 1955 F Date Time Provider Department 03/16/25 8:40 AM ALEXA MATUTE ENWSTR During your visit today, we recorded the following information about you: Pulse Respiration Blood pressure Weight 57/minute 17/minute 160/90 65.1 kg Height 1.6 m Alexa Matute MD 03/16/2025 9:08 AM Addendum [facility] Follow up note Patient referred by: Ori Lord DO (Urology) History of Present Illness: Ms. Dom Avila is a 69 year old female coming today for follow up evaluation of adrenal nodule. She is following after labs checked for functionality of nodule Initial visit 07/11/24 LV 02/16/25 History in brief, She was seeing urology for UTIs, which first started 1-1.5 years ago. She has had atleast 2 or 3 within 1 year. She thinks she is not having any UTIs since last fall Patient Also described the following: Lost weight due to low appetite Has palpitations intermittently and was diagnosed to have PVCs Denied, Skin stretch benton, easy bruising, excess hair growth over face/chin/chest/or abdomen, voice hoarseness, difficulty raising arms overhead, difficulty getting up from a seated position Headache, Flushing, sweating, Chest pain, Tremors Episodes of Headache, Sweating, palpitations or tremor: No Previous use of Steroids, oral, inhalers, injections: short term use Interval history: 03/16/2025 Patient reports starting on amlodipine 5 mg daily recently Although she knows adrenal probably isn't related, she would like to find if I have any suggestions/insight into her c/o hair loss and feeling cold intermittently bartolome in her extremities She had covid 5 times and she is on tamoxifen for hx of breast cancer Past Medical History: PAST MEDICAL HISTORY Diagnosis Date Advance directive discussed with patient 04/08/2023 Discussed 03/2023: Up to date Amaurosis fugax 10/29/2017 TIA; right visual disturbance 06/2017 Arthritis tendonitis, arthritis 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 Encounter for Medicare annual wellness exam 04/08/2023 Medicare Part B: 07/09/2022 Last done: 04/08/2023 Essential hypertension 01/16/2016 Female pattern hair loss Foot callus 05/26/2021 Gastroesophageal reflux disease without esophagitis 10/18/2024 History of colon polyps History of depression when History of hyperparathyroidism History of transient ischemic attack (TIA) 10/29/2017 06/29/2017 - R homonomous hemianopia with aphasia for couple hours - negative MRI/A following day Irritable bowel syndrome with diarrhea 05/26/2021 Living will on file at physician's office 04/08/2023 DPA: Carmella () Meniere disease, right 10/29/2017 Mixed hyperlipidemia 05/31/2009 statin intolerance 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 Has been on provigil for 5-10 yrs Obstructive sleep apnea on CPAP Sibilia Other skin changes 09/26/2021 Seeing derm Pancreatic insufficiency (HCC) 04/08/[address] Alcantar Psoriasis RLS (restless legs syndrome) 02/22/[address] Aysha Laurent with ocular symptoms S/P angioplasty with stent 01/09/2017 stents to mid and proximal left anterior descending Art, and angio of ostium of #2 diagonal Scalp itch Seasonal allergies Dr Pompa Type 2 diabetes mellitus with hyperlipidemia ([facility]) 04/17/2024 Vitamin D deficiency 2013 Well adult exam 01/16/2016 Last done: 09/08/2018 Surgical History: PAST SURGICAL HISTORY Procedure Laterality Date 2D ECHO (EXEP) 06/30/2017 EF=65%, trivial CT, TI and 1+ PI Unchanged from 04/2017 2D ECHO (EXEP) 05/14/2021 EF=60%, 1+ TI, trival CT, AI, PI 2D ECHO (EXEP) 09/16/2021 EF=60%, no significant valve disease BREAST LUMPECTOMY HX Left 04/08/2021 BUNIONECTOMY, LAPIDUS-TYPE 2010 left great toe BX BREAST W/DEVICE 1ST LESION STEREOTACTIC GUID Left 03/25/2021 DELIVERY ONLY CHOLECYSTECTOMY 2004 Cholecystectomy COLONOSCOPY 08/07/2015 no polyps, recheck 3-5 yrs COLONOSCOPY AND POLYPECTOMY 10/12, 10/13 Dr Avila; hyperplastic polyps COLONOSCOPY FLX DX W/COLLJ SPEC WHEN PFRMD 08/09/2018 Colonoscopy ESOPHAGOGASTRODUODENOS COPY TRANSORAL DIAGNOSTIC 08/09/2018 EGD HEART CATHETERIZATION 2004 heart cath-normal per patient HEART CATHETERIZ (more content not included)... Normal [facility] DBT Breast - bilateral scree ningon 03-14-2025 IMPRESSION: There is no mammographic evidence of malignancy. Routine screening mammogram is recommended. Annual mammogram will be due in 1 year. BI-RADS Category 2: Benign RISK: Due to the reported patient's history, the patient's estimated lifetime risk of developing breast cancer cannot be assessed at this time. We encourage all patients to talk with their providers about their risk assessment, further recommendations for managing breast health, and appropriate supplemental screening options if the patient has dense breast tissue. Interpreting Radiologist: Daniel Marinelli M.D. Resident/Fellow: Yennifer Fonseca D.O. Electronically signed on: 03/14/2025 Color Checker Roving Or Yarn: [email or web address] Transcribe Date/Time: Mar 14 2025 7:21A Dictated by: YENNIFER FONSECA DO This examination was interpreted and the report reviewed and electronically signed by: DANIEL MARINELLI MD on Mar 14 2025 1:29PM [facility] DIVISION OF RADIOLOGY * * *Final Report* * * DATE OF EXAM: Mar 14 2025 7:35AM [facility] [id number] - GUILLERMINA SCREENING W ANGELA / PROCEDURE REASON: multiple diagnoses * * * * Physician Interpretation * * * * RESULT: [place] [address] #[id number] - GUILLERMINA SCREENING W ANGELA HISTORY: 69 year-old patient seen for screening. Patient is asymptomatic in both breasts. The patient has the following personal history of breast cancer: breast cancer in the left breast. COMPARISON STUDIES: The present examination has been compared to prior imaging studies dated 02/23/2022 (mammogram), 10/28/2022 (mammogram), 02/24/2023 (mammogram) and 03/09/2024 (mammogram). MAMMOGRAM TECHNIQUE: The study was acquired using full field digital technology and interpreted from soft copy. Digital Breast Tomosynthesis (DBT) images were obtained and used to assist in the interpretation of this examination. Computer-aided detection was utilized by the radiologist in the interpretation of this examination. MAMMOGRAM FINDINGS: There are scattered areas of fibroglandular density. There are no significant interval changes. There are benign post operative findings in the left breast related to prior lumpectomy. No suspicious masses, calcifications or other abnormalities are seen in either breast. DIVISION OF RADIOLOGY Provider, [facility] - 03/14/2025 * * *Final Report* * * DATE OF EXAM: Mar 14 2025 7:35AM [id number] [id number] - GUILLERMINA SCREENING W ANGELA / PROCEDURE REASON: multiple diagnoses * * * * Physician Interpretation * * * * RESULT: [place] [address] #[id number] - GUILLERMINA SCREENING W ANGELA HISTORY: 69 year-old patient seen for screening. Patient is asymptomatic in both breasts. The patient has the following personal history of breast cancer: breast cancer in the left breast. COMPARISON STUDIES: The present examination has been compared to prior imaging studies dated 02/23/2022 (mammogram), 10/28/2022 (mammogram), 02/24/2023 (mammogram) and 03/09/2024 (mammogram). MAMMOGRAM TECHNIQUE: The study was acquired using full field digital technology and interpreted from soft copy. Digital Breast Tomosynthesis (DBT) images were obtained and used to assist in the interpretation of this examination. Computer-aided detection was utilized by the radiologist in the interpretation of this examination. MAMMOGRAM FINDINGS: There are scattered areas of fibroglandular density. There are no significant interval changes. There are benign post operative findings in the left breast related to prior lumpectomy. No suspicious masses, calcifications or other abnormalities are seen in either breast. IMPRESSION IMPRESSION: There is no mammographic evidence of malignancy. Routine screening mammogram is recommended. Annual mammogram will be due in 1 year. BI-RADS Category 2: Benign RISK: Due to the reported patient's history, the patient's estimated lifetime risk of developing breast cancer cannot be assessed at this time. We encourage all patients to talk with their providers about their risk assessment, further recommendations for managing breast health, and appropriate supplemental screening options if the patient has dense breast tissue. Interpreting Radiologist: Daniel Marinelli M.D. Resident/Fellow: Yennifer Fonseca D.O. Electronically signed on: 03/14/2025 Color Checker Roving Or Yarn: ARINA Transcribe Date/Time: May 7 2025 7:21A Dictated by: YENNIFER FONSECA DO This examination was interpreted and the report reviewed and electronically signed by: DANIEL MARINELLI MD on Mar 14 2025 1:29PM EST [facility] Radiology Study observation (narrative) [facility] DBT Breast - bilateral scree ningOrdered By: Ccf Provider on 03-14-2025 [facility] GUILLERMINA SCREENING W TOMOon 03-14 GUILLERMINA SCREENING W ANGELA * * *Final Report* * * DATE OF EXAM: Mar 14 2025 7:35AM WRW [id number] - GUILLERMINA SCREENING W ANGELA / PROCEDURE REASON: multiple diagnoses * * * * Physician Interpretation * * * * RESULT: [facility] [address] [place] [address] #[id number] - GUILLERMINA SCREENING W ANGELA HISTORY: 69 year-old patient seen for screening. Patient is asymptomatic in both breasts. The patient has the following personal history of breast cancer: breast cancer in the left breast. COMPARISON STUDIES: The present examination has been compared to prior imaging studies dated 02/23/2022 (mammogram), 10/28/2022 (mammogram), 02/24/2023 (mammogram) and 03/09/2024 (mammogram). MAMMOGRAM TECHNIQUE: The study was acquired using full field digital technology and interpreted from soft copy. Digital Breast Tomosynthesis (DBT) images were obtained and used to assist in the interpretation of this examination. Computer-aided detection was utilized by the radiologist in the interpretation of this examination. MAMMOGRAM FINDINGS: There are scattered areas of fibroglandular density. There are no significant interval changes. There are benign post operative findings in the left breast related to prior lumpectomy. No suspicious masses, calcifications or other abnormalities are seen in either breast. IMPRESSION: There is no mammographic evidence of malignancy. Routine screening mammogram is recommended. Annual mammogram will be due in 1 year. BI-RADS Category 2: Benign RISK: Due to the reported patient's history, the patient's estimated lifetime risk of developing breast cancer cannot be assessed at this time. We encourage all patients to talk with their providers about their risk assessment, further recommendations for managing breast health, and appropriate supplemental screening options if the patient has dense breast tissue. Interpreting Radiologist: Daniel Marinelli M.D. Resident/Fellow: Yennifer Fonseca D.O. Electronically signed on: 03/14/2025 Color Checker Roving Or Yarn: ARINA Artisrimary kay Date/Time: Mar 14 2025 7:21A Dictated by: YENNIFER FONSECA, DO This examination was interpreted and the report reviewed and electronically signed by: DANIEL MARINELLI MD on Mar 14 2025 1:29PM EST [id number] Normal [facility] ACTH Plas-mCncon 02-21-2025 Corticotropin (P) [Mass/Vol] 1.9 pg/mL Low 7.2-63.3 [facility] Comment on above: Order Comment: Taran acevedo Type: BLOOD SPECIMENOrdering Facility: [facility] Address: [address] [place] [address] Result Comment: ACTH Reference Range: 7-10 am: 7.2 - 63.3 pg/mL Performed By: #### 2 141-0 ####[facility] LABCLIA [id number] [place] [address] [place] Cortis p Dex SerPl-[facility] Cortisol post dose dexamethasone [Mass/Vol] 0.7 ug/dL Normal <1.8 [facility] Comment on above: Order Comment: Taran acevedo Type: BLOOD SPECIMENOrdering Facility: [facility] Address: [address] [place] [address] Result Comment: Afte r overnight 1 mg dexamethasone, an magician/illusionist cortisol of <1.8 ug/dL may indicate an adequate cortisol suppression. This result should be interpreted within the clinical context and other test results. Dahlia et al. Evidence for the Low Dose Dexamethasone Suppression Test to Screen for Cher's Syndrome - Recommendations for a Protocol for Biochemistry Laboratories. 1997 [employer]. Clin. Biochem. 34 222-229. Performed By: #### 4 7851-1 ####[facility] LABCLIA [id number] [place] [address] [place] DEXAMETHASONEon 02-21-2025 DEXAMETHASONE 327.4 ng/dL Normal [facility] Comment on above: Order Comment: Speci men Type: BLOOD SPECIMENOrdering Facility: [facility] Address: [address] [place] [address] Result Comment: INTE RPRETIVE INFORMATION: Dexamethasone, Serum or Plasma by LC-MS/MS Adults baseline: Less than 50 ng/dL 8:00 AM draw following 1 mg dexamethasone between 11:00 pm and 12:00 am the previous evenin - 295 ng/dL 8:00 AM draw following 8 mg dexamethasone (4 x 2 mg doses) between 11:00 pm and 12:00 am the previous evenin - 2850 ng/dL This test was developed and its performance characteristics determined by [facility]. It has not been cleared or approved by the US Food and Drug Administration. This test was performed in a CLIA certified laboratory and is intended for clinical purposes. Performed By: [facility] [address] [place] [address] Inside Tester: Jason Shore MD, PhD CLIA Number: [id number] Performed By: #### D EXA ####[facility] [id number] [place] [address] CNOVon 02-19-2025 CNOV Office Visit (URUN) DOM AVILA ([id number]) 1955 F Date Time Provider Department 02/19/25 8:40 AM ORI LORD URTIERNEY During your visit today, we recorded the following information about you: Pulse Blood pressure 65/minute 164/80 Ori Lord DO 02/19/2025 9:18 AM Signed [facility] ESTABLISHED PATIENT NOTE/HISTORY AND PHYSICAL PATIENT: Dom Vel Avila (69 year old) PCP: Clifton Hung MD DATE OF SERVICE: 02/19/2025 SUBJECTIVE: CHIEF COMPLAINT: Follow Up (6 mo f/u. Patient has no new complaints and denies any urinary issues. ) HISTORY OF PRESENT ILLNESS: Recording using [employer] software for draft documentation of the visit was discussed with the patient/authorized healthcare sales representative; all questions welcomed and answered. Patient/authorized healthcare sales representative agreed to proceed The patient was last seen by Ori Lord DO on 07/2024 . Prior notes were reviewed. Patient returns today for follow up . The patient reports persistent urinary incontinence, characterized by variable leakage, with some days experiencing significant leakage and other days less so. She has reduced her coffee intake to zero, consuming only occasional tea in the mornings, but continues to experience leakage. She denies frequent urination during the daytime and reports waking up once at night to urinate, attributing this to her high water intake. Initially, the leakage was associated with coughing and sneezing, but she now experiences leakage even while sitting without any precipitating factors. She has been performing Kegel exercises as recommended by a previous clinician. Additionally, she reports a rash near the rectal area, which she believes is secondary to episodes of diarrhea related to her pancreatic issues. She is currently using vaginal estrogen cream and is undergoing evaluation for an adrenal gland nodule, with a dexamethasone suppression test scheduled and a follow-up appointment with her block sorter on March 16. 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 (01/09/2017), Garibay's cyst of knee, left (03/02/2018), Breast neoplasm, Tis (DCIS), 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), Cataract, Colon polyp (2011), Controlled type 2 diabetes mellitus without complication, without long-term current use of insulin ([facility]) (10/22/2016), De Quervain's tenosynovitis, left (07/31/2019), Diabetic eye exam ([facility]) (01/16/2016), 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), 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), Encounter for Medicare annual wellness exam (04/08/2023), Essential hypertension (01/16/2016), Female pattern hair loss, Foot callus (05/26/2021), Gastroesophageal reflux disease without esophagitis (10/18/2024), History of colon polyps, History of depression, History of hyperparathyroidism, History of transient ischemic attack (TIA) (10/29/2017), Irritable bowel syndrome with diarrhea (05/26/2021), Living will on file at physician's office (04/08/2023), Meniere disease, right (10/29/2017), Mixed hyperlipidemia (05/31/2009), 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 Past Surgical History: -Patient has a past surgical history that includes cholecystectomy (2004); past surgical history of (2004); total abdominal hysterect w/wo rmvl tube ovary (1995); past surgical history of; heart catheterization (2004); past surgical history of (10/2006); delivery only; low back disk surgery (2009); bunionectomy, lapidus-type (2009); colonoscopy AND polypectomy (10/12, 10/13); colonoscopy (08/07/2015); past surgical history of (2014); heart catheterization (01/04/2017); 2d echo (exep) (06/30/2017); stent placement (01/06/2017); stress test (04/20/2017); past surgical history of (Right, 10/2016); heart surgery hx (12/2016); colonoscopy flx dx w/collj spec when pfrmd (08/09/2018); esophagogastroduodenos copy transoral diagnostic (08/09/2018); heart catheterization (10/2018); bx b (more content not included)... [facility] 02-16-2025 [facility] Office Visit (ENWSTR ) DOM AVILA ([id number]) 1955 F Date Time Provider Department 02/16/25 9:00 AM ALEXA MATUTE ENWSTR During your visit today, we recorded the following information about you: Temperature Pulse Blood pressure Weight 97.1 degrees 67/minute 140/70 65.3 kg Alexa Matute MD 02/18/2025 3:07 PM Addendum [facility] Follow up note Patient referred by: Ori Lord DO (Urology) History of Present Illness: Ms. Dom Avila is a 68 year old female coming today for follow up evaluation of adrenal nodule. She is following after labs checked for functionality of nodule Initial visit 07/11/24 LV 11/03/24 History in brief, She was seeing urology for UTIs, which first started 1-1.5 years ago. She has had atleast 2 or 3 within 1 year. She thinks she is not having any UTIs since last fall Patient Also described the following: Lost weight due to low appetite Has palpitations intermittently and was diagnosed to have PVCs Denied, Skin stretch benton, easy bruising, excess hair growth over face/chin/chest/or abdomen, voice hoarseness, difficulty raising arms overhead, difficulty getting up from a seated position Headache, Flushing, sweating, Chest pain, Tremors Episodes of Headache, Sweating, palpitations or tremor: No Previous use of Steroids, oral, inhalers, injections: short term use Interval history: 02/16/2025: Patient reports starting on amlodipine 5 mg daily recently Denied any extra salt intake than that in the food naturally 24 hr urine labs done, after an abnormal DST and is normal Past Medical History: PAST MEDICAL HISTORY Diagnosis Date Advance directive discussed with patient 04/08/2023 Discussed 03/2023: Up to date Amaurosis fugax 10/29/2017 TIA; right visual disturbance 06/2017 Arthritis tendonitis, arthritis 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 Encounter for Medicare annual wellness exam 04/08/2023 Medicare Part B: 07/09/2022 Last done: 04/08/2023 Essential hypertension 01/16/2016 Female pattern hair loss Foot callus 05/26/2021 Gastroesophageal reflux disease without esophagitis 10/18/2024 History of colon polyps History of depression when History of hyperparathyroidism History of transient ischemic attack (TIA) 10/29/2017 06/29/2017 - R homonomous hemianopia with aphasia for couple hours - negative MRI/A following day Irritable bowel syndrome with diarrhea 05/26/2021 Living will on file at physician's office 04/08/2023 DPA: Carmella () Meniere disease, right 10/29/2017 Mixed hyperlipidemia 05/31/2009 statin intolerance Narcolepsy without cataplexy ([facility]) 01/16/2016 Especially with long drives. Has been on provigil for 5-10 yrs Obstructive sleep apnea on CPAP Sibilia Other skin changes 09/26/2021 Seeing derm Pancreatic insufficiency ([facility]) 04/08/[address] Ortiz [place] RLS (restless legs syndrome) 02/22/[address] Aysha Laurent with ocular symptoms S/P angioplasty with stent 01/09/2017 stents to mid and proximal left anterior descending Art, and angio of ostium of #2 diagonal Scalp itch Seasonal allergies Dr Pompa Type 2 diabetes mellitus with hyperlipidemia (HCC) 04/17/2024 Vitamin D deficiency 2012 Well adult exam 01/16/2016 Last done: 09/08/2018 Surgical History: PAST SURGICAL HISTORY Procedure Laterality Date 2D ECHO (EXEP) 06/30/2017 EF=65%, trivial CT, TI and 1+ PI Unchanged from 04/2017 2D ECHO (EXEP) 05/14/2021 EF=60%, 1+ TI, trival CT, AI, PI 2D ECHO (EXEP) 09/16/2021 EF=60%, no significant valve disease BREAST LUMPECTOMY HX Left 04/08/2021 BUNIONECTOMY, LAPIDUS-TYPE 2009 left great toe BX BREAST W/DEVICE 1ST LESION STEREOTACTIC GUID Left 03/25/2021 DELIVERY ONLY CHOLECYSTECTOMY 2004 Cholecystectomy COLONOSCOPY 08/07/2015 no polyps, recheck 3-5 yrs COLONOSCOPY AND POLYPECTOMY 10/12, 10/13 Dr Avila; hyperplastic polyps COLONOSCOPY FLX DX W/COLLJ SPEC WHEN PFRMD 08/09/2018 Colonoscopy ESOPHAGOGASTRODUODENOS COPY TRANSORAL DIAGNOSTIC 08/09/2018 EGD HEART CATHETERIZATION 2004 heart cath-normal per patient HEART CATHETERIZATION 01/04/2017 EF=60%, left anterior desending septal perferator 95-99% stenosis and diagonal branch 85% stenosis, HEART CATHETERIZATION 10/09 (more content not included)... 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 Patient presents for head congestion and cough x 1 day. was recently ill and is also feeling ill. Denies fever, chills, SOB. Past medical history, appointments, medications, allergies reviewed. 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 Encounter for Medicare annual wellness exam 04/08/2023 Medicare Part B: 07/09/2022 Last done: 04/08/2023 Essential hypertension 01/16/2016 Female pattern hair loss Foot callus 05/26/2021 Gastroesophageal reflux disease without esophagitis 10/18/2024 History of colon polyps History of depression when History of hyperparathyroidism History of transient ischemic attack (TIA) 10/29/2017 06/29/2017 - R homonomous hemianopia with aphasia for couple hours - negative MRI/A following day Irritable bowel syndrome with diarrhea 05/26/2021 Living will on file at physician's office 04/08/2023 DPA: Carmella () Meniere disease, right 10/29/2017 Mixed hyperlipidemia 05/31/2009 statin intolerance Narcolepsy without cataplexy 01/16/2016 Especially with long drives. Has been on provigil for 5-10 yrs Obstructive sleep apnea on CPAP Sibilia Other skin changes 09/26/2021 Seeing derm Pancreatic insufficiency 04/08/[address] Friend Psoriasis RLS (restless legs syndrome) 02/22/[address] Aysha Laurent with ocular symptoms S/P angioplasty with stent 01/09/2017 stents to mid and proximal left anterior descending Art, and angio of ostium of #2 diagonal Scalp itch Seasonal allergies Dr Pompa Type 2 diabetes mellitus with hyperlipidemia (HCC) (HCC) 04/17/2024 Vitamin D deficiency 2012 Well adult exam 01/16/2016 Last done: 09/08/2018 Previous Surgical History PAST SURGICAL HISTORY Procedure Laterality Date 2D ECHO (EXEP) 06/30/2017 EF=65%, trivial CT, TI and 1+ PI Unchanged from 04/2017 2D ECHO (EXEP) 05/14/2021 EF=60%, 1+ TI, trival CT, AI, PI 2D ECHO (EXEP) 09/16/2021 EF=60%, no significant valve disease BREAST LUMPECTOMY HX Left 04/08/2021 BUNIONECTOMY, LAPIDUS-TYPE 2010 left great toe BX BREAST W/DEVICE 1ST LESION STEREOTACTIC GUID Left 03/25/2021 DELIVERY ONLY CHOLECYSTECTOMY 2005 Cholecystectomy COLONOSCOPY 08/07/2015 no polyps, recheck 3-5 yrs COLONOSCOPY AND POLYPECTOMY 10/12, 10/13 Dr Avila; hyperplastic polyps COLONOSCOPY FLX DX W/COLLJ SPEC WHEN PFRMD 08/09/2018 Colonoscopy ESOPHAGOGASTRODUODENOS COPY TRANSORAL DIAGNOSTIC 08/09/2018 EGD HEART CATHETERIZATION 2004 [...] cancer) Mother Coronary Artery Disease Father 25 CT @ 25. CABG Diabetes Father Di (more content not included)... Normal [facility] ACTH Plas-mCncon 11-07-2024 Corticotropin (P) [Mass/Vol] 28.4 pg/mL Normal 7.2-63.3 [facility] Comment on above: Order Comment: Speci men Type: BLOOD SPECIMENOrdering Facility: [facility] Address: [address] [place] [address] Result Comment: ACTH Reference Range: 7-10 am: 7.2 - 63.3 pg/mL Performed By: #### 2 141-0 ####[facility] LABCLIA [id number] [place] [address] [place] CREATININE, 24 HOUR URINEon 11-07-2024 Creatinine (24H U) [Mass/Time] 0.786 g/24 hr Low 0.800-1.800 [facility] Comment on above: Order Comment: Speci men Type: URINE SPECIMENOrdering Facility: [facility] Address: [address] [place] [address] Performed By: #### U CRD ####[facility] LABCLIA [id number] [place] [address] [place] [facility] [id number] [place] [address] [place] PERIOD (HRS) 24 hr Normal [facility] Comment on above: Order Comment: Speci men Type: URINE SPECIMENOrdering Facility: [facility] Address: [address] [place] [address] Performed By: #### U CRD ####[facility] LABCLIA [id number] [place] [address] [place] [facility] [id number] [place] [address] [place] Specimen volume (24H U) 1.95 L Normal [facility] Comment on above: Order Comment: Speci men Type: URINE SPECIMENOrdering Facility: [facility] Address: [address] [place] [address] Performed By: #### U CRD ####[facility] LABCLIA [id number] [place]AAldair [place] [address] OF [facility] [id number] [place] [id number] [place] [address] OF [facility] URINE FREE CORTISOL BY LC-MS /MSon 11-07-2024 CORTISOL UG/G SENIOR PORTFOLIO ANALYST, UR (UFRCRT) 16.32 ug/g SENIOR PORTFOLIO ANALYST Normal [facility] Comment on above: Order Comment: Speci men Type: URINE SPECIMENOrdering Facility: [facility] Address: [address] [place] [address] Result Comment: Refe rence Interval: Cortisol ug/g housecleaner floor Female Prepubertal: Less than 25 ug/g housecleaner floor 18 years and older: Less than 24 ug/g housecleaner floor : Less than 59 ug/g housecleaner floor Male Prepubertal: Less than 25 ug/g housecleaner floor 18 years and older: Less than 32 ug/g housecleaner floor Performed By: #### U FRCRT ####[facility] [id number] [place] [address] CREATININE, URINE PER 24H 800 mg/d Normal 500-1400 [facility] Comment on above: Order Comment: Speci men Type: URINE SPECIMENOrdering Facility: [facility] Address: [address] [place] [address] Performed By: #### U FRCRT ####[facility] [id number] [place] [address] CREATININE, URINE PER VOLUME 41 mg/dL Normal [facility] Comment on above: Order Comment: Speci men Type: URINE SPECIMENOrdering Facility: [facility] Address: [address] [place] [address] Performed By: #### U FRCRT ####[facility]ORATORIESCLIA [id number] [place] [address] FREE CORTISOL UG/DAY, URINE 13.0 ug/d Normal <=45.0 [facility] Comment on above: Order Comment: Speci men Type: URINE SPECIMENOrdering Facility: [facility] Address: [address] [place] [address] Performed By: #### U FRCRT ####[facility]ORATORIESCLIA [id number] [place] [address] FREE CORTISOL UG/L, URINE 6.69 ug/L Normal [facility] Comment on above: Order Comment: Speci men Type: URINE SPECIMENOrdering Facility: [facility] Address: [address] [place] [address] Performed By: #### U FRCRT ####[facility] LABORATORIESCLIA [id number] [place] [address] HOURS COLLECTED 24 hr Normal [facility] Comment on above: Order Comment: Speci men Type: URINE SPECIMENOrdering Facility: [facility] Address: [address] [place] [address] Result Comment: Per 24h calculations are provided to aid interpretation for collections with a duration of 24 hours and an average daily urine volume. For specimens with notable deviations in collection time or volume, ratios of analytes to a corresponding urine creatinine concentration may assist in result interpretation. Performed By: #### U FRCRT ####[facility]ORATORIESCLIA [id number] [place] [address] TOTAL VOLUME 1950 mL Normal [facility] Comment on above: Order Comment: Speci men Type: URINE SPECIMENOrdering Facility: [facility] Address: [address] [place] [address] Performed By: #### U FRCRT ####[facility]ORATORIESCLIA [id number] [place] [address] UR DYAN FREE INTERP See Note Normal [facility] Comment on above: Order Comment: Speci men Type: URINE SPECIMENOrdering Facility: [facility] Address: [address] [place] [address] Result Comment: INTE RPRETIVE INFORMATION: Cortisol Urine Free by LC-MS/MS Access complete set of age- and/or gender-specific reference intervals for this test in the [facility] Test Directory ([employer]). This test was developed and its performance characteristics determined by [facility]. It has not been cleared or approved by the US Food and Drug Administration. This test was performed in a CLIA certified laboratory and is intended for clinical purposes. Performed By: [facility] [address] [place] [address] Inside Tester: Jason Shore MD, PhD CLIA Number: [id number] Performed By: #### U CRT ####ITDatabaseSELECT [facility] SOUTHIA [id number] [place] [address] CNOVon 11-03-2024 CNOV Office Visit (ENWSTR ) DOM AVILA ([id number]) 1955 F Date Time Provider Department 11/03/24 8:40 AM ALEXA MATUTE ENWSTR During your visit today, we recorded the following information about you: Temperature Pulse Blood pressure Weight 96.9 degrees 60/minute 138/78 64.4 kg Height 1.598 m Alexa Matute MD 11/03/2024 5:51 PM Signed [facility] Follow up note Patient referred by: Ori Lord DO (Urology) History of Present Illness: Ms. Dom Avila is a 68 year old female coming today for follow up evaluation of adrenal nodule. She is following after labs checked for functionality of nodule Initial visit 07/11/24 LV 09/22/24 History in brief, She was seeing urology for UTIs, which first started 1-1.5 years ago. She has had atleast 2 or 3 within 1 year. She thinks she is not having any UTIs since last fall Patient Also described the following: Lost weight due to low appetite Has palpitations intermittently and was diagnosed to have PVCs Denied, Skin stretch benton, easy bruising, excess hair growth over face/chin/chest/or abdomen, voice hoarseness, difficulty raising arms overhead, difficulty getting up from a seated position Headache, Flushing, sweating, Chest pain, Tremors Episodes of Headache, Sweating, palpitations or tremor: No Previous use of Steroids, oral, inhalers, injections: short term use Past Medical History: PAST MEDICAL HISTORY Diagnosis Date Advance directive discussed with patient 04/08/2023 Discussed 03/2023: Up to date Amaurosis fugax 10/29/2017 TIA; right visual disturbance 06/2017 Arthritis tendonitis, arthritis 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 Cataract Colon polyp 2011 Controlled type 2 diabetes [...] Female pattern hair loss Foot callus 05/26/2021 Gastroesophageal reflux disease without esophagitis 10/18/2024 History of colon polyps History of depression when History of hyperparathyroidism History of transient ischemic attack (TIA) 10/29/2017 06/29/2017 - R homonomous hemianopia with aphasia for couple hours - negative MRI/A following day Irritable bowel syndrome with diarrhea 05/26/2021 Living will on file at physician's office 04/08/2023 DPA: Carmella () Meniere disease, right 10/29/2017 Mixed hyperlipidemia 05/31/2009 statin intolerance Narcolepsy without cataplexy 01/16/2016 Especially with long drives. Has been on provigil for 5-10 yrs Obstructive sleep apnea on CPAP Sibilia Other skin changes 09/26/2021 Seeing derm Pancreatic insufficiency 04/08/[address] Alcantar Psoriasis RLS (restless legs syndrome) 02/22/[address] Aysha Laurent with ocular symptoms S/P angioplasty with stent 01/09/2017 stents to mid and proximal left anterior descending Art, and angio of ostium of #2 diagonal Scalp itch Seasonal allergies Dr Pompa Type 2 diabetes mellitus with hyperlipidemia (HCC) (HCC) 04/17/2024 Vitamin D deficiency 2012 Well adult exam 01/16/2016 Last done: 09/08/2018 Surgical History: PAST SURGICAL HISTORY Procedure Laterality Date 2D ECHO (EXEP) 06/30/2017 EF=65%, trivial CT, TI and 1+ PI Unchanged from 04/2017 2D ECHO (EXEP) 05/14/2021 EF=60%, 1+ TI, trival CT, AI, PI 2D ECHO (EXEP) 09/16/2021 EF=60%, no significant valve disease BREAST LUMPECTOMY HX Left 04/08/2021 BUNIONECTOMY, LAPIDUS-TYPE 2009 left great toe BX BREAST W/DEVICE 1ST LESION STEREOTACTIC GUID Left 03/25/2021 DELIVERY ONLY CHOLECYSTECTOMY 2004 Cholecystectomy COLONOSCOPY 08/07/2015 no polyps, recheck 3-5 yrs COLONOSCOPY AND POLYPECTOMY 10/12, 10/13 Dr Avila; hyperplastic polyps COLONOSCOPY FLX DX W/COLLJ SPEC WHEN PFRMD 08/09/2018 Colonoscopy ESOPHAGOGASTRODUODENOS COPY TRANSORAL DIAGNOSTIC 08/09/2018 EGD HEART CATHETERIZATION 2004 heart cath-normal per patient HEART CATHETERIZATION 01/04/2017 EF=60%, left anterior desending septal perferator 95-99% stenosis and diagonal branch 85% stenosis, HEART CATHETERIZATION 10/2018 HEART SURGERY HX 12/2016 Cardiac stents x 2 LOW BACK DISK SURGERY 2010 microdecompression L4 L5 MASTECTOMY, PARTIAL Left 04/08/2021 PAST SURGICAL HISTORY OF 2004 parathyroidectomy (more content not included)... Normal [facility] Cardiology Visit Reporton Cardiology Visit Report [facility] [address] [place] [address] OFFICE VISIT Date of Service: 10/23/24 MR#: [id number] Acct: [id number] Name: DOM AVILA Rep #: [id number] : 1955 Provider: NEGRO valladares Age/Sex: 69/F Location: [facility] Status: Signed HPI HPI History of Present Illness Details: This is a 69-year-old white female who presents today for outpatient cardiovascular follow-up of her history of underlying CAD, status post PCI (LAD and PTCA to the ostium of diagonal branch #2)- December,, hyperlipidemia, hypertension, palpitations, and history of breast carcinoma with left chest radiation (17 sessions) with last treatment in June 2021. She denies bilateral lower extremity edema. She denies claudication. She denies shortness of breath with activity, shortness of breath at rest, orthopnea, or PND. She denies chronic cough. She denies significant, sudden weight gain. She acknowledges occasional dizziness when standing too quickly. She states this is not new. She denies lightheadedness, near-syncope, or syncope. She denies blood in urine, blood in stool, or epistaxis. He denies fever or chills. She denies myalgia. She denies fatigue. Her exercise level has remained stable. Her blood pressure at home is better controlled. Intake Vital Signs 04/21/24 13:31 06/19/24 09:57 10/23/24 10:47 Height 5 ft 3 in 5 ft 3 in 5 ft 3 in Weight: 142 lb BMI 25.1 BP 180/82 H Blood Pressure Location Rt brachial Position Sitting Respiration 18 Pulse 64 Pulse Source Monitor Pulse Oximetry (%) 98 Oxygen Delivery Method room air Intake Visit Reasons: 6 M FU Communication Skills Instructor Required: No Accompanied by: Self Is patient in pain?: No Allergies lovastatin Allergy (Intermediate, Verified 10/23/24 10:48) Other rosuvastatin (From Crestor) Allergy (Intermediate, Verified 10/23/24 10:48) Other ticagrelor (From Brilinta) Allergy (Intermediate, Verified 10/23/24 10:48) Shortness of breath atorvastatin Allergy (Unknown, Verified 10/23/24 10:48) myalgia hydrocodone Allergy (Verified 10/23/24 10:48) Hives cephalexin monohydrate (From Keflex) Adverse Reaction (Verified 10/23/24 10:48) Other pravastatin Adverse Reaction (Verified 10/23/24 10:48) myalgias Medications ???Medication ???Instructions ???Recorded ???Confirmed ???Type L.acidoph,paracasei,B. animalis 10 1 ea PO QHS 09/23/16 10/23/24 History billion cell capsule montelukast 10 mg tablet 10 mg PO QPM 08/22/18 10/23/24 History coenzyme Q10 100 mg capsule 100 mg PO DAILY 08/23/19 10/23/24 History metformin 500 mg 24 hr 1,000 mg PO BID 11/24/21 10/23/24 History tablet,extended release (gastric retention) tamoxifen 20 mg tablet 20 mg PO DAILY 11/24/21 10/23/24 History doxycycline monohydrate 50 mg 50 mg PO DAILY PRN Skin 05/28/22 10/23/24 History capsule clobetasol 0.05 % topical gel 1 applic topical DAILY PRN Skin 09/03/22 10/23/24 History Cleansing omeprazole 40 mg capsule,delayed 40 mg PO DAILY 11/30/22 10/23/24 History release bvrqsf-nqtpxfof-mdisth e See Rx Instructions PO .COMPLEX 03/04/23 10/23/24 Rx 36,000-114,000-180,000 unit #56 caps capsule,delay rel (Creon) Handicap Placard #1 ea 08/30/23 06/05/24 Rx calcium 315 mg (as 2 tab PO DAILY 08/30/23 10/23/24 History citrate)-vitamin D3 6.25 mcg (250 unit) tablet ezetimibe 10 mg tablet (Zetia) 10 mg PO DAILY 08/30/23 10/23/24 History ketoconazole 2 % shampoo 1 applic topical QODAY 08/30/23 10/23/24 History lactulose 10 gram/15 mL oral 15 ml PO DAILY PRN constipation 11/03/23 10/23/24 Rx solution #473 mL nitroglycerin 0.4 mg sublingual 0.4 mg sublingual Q5M PRN Chest 03/03/24 10/23/24 Rx tablet Pain #25 tabs ammonium lactate 12 % lotion 1 applic topical PRN PRN dry skin 04/21/24 10/23/24 History estradiol 0.01% (0.1 mg/gram) 1 g vaginal .2xweek 04/21/24 10/23/24 History vaginal cream lisinopril 40 mg tablet 40 mg PO DAILY #90 tabs 06/14/24 12/16/24 Rx pioglitazone 15 mg tablet 15 mg PO QDAY 04/21/24 10/23/24 History dicyclomine 20 mg tablet 20 mg PO TID PRN 10/23/24 History metoprolol tartrate 25 mg tablet 25 mg PO BID #180 tabs 10/23/24 10/23/24 Rx Ejection fraction %: 60 Have you fallen in the past year?: No PFSH Medical History History of stress test PONV (postoperative nausea and vomiting) COVID-19 ( 10/2022) Loss of hearing Anxiety Discoloration of skin Injury of head and neck Dietary restriction Hx of gastritis Gastric reflux Shortness of breath on exertion Leg cramps History of pain when walking Heart palpitations Cardiology follow-up encounter Epigastric pain Vitamin D deficiency Rosacea Psoriasis IBS (irritable bowel syndrome) Hi (more content not included)... [facility] Office Visit (FAMPWS ) AUSTINDOM K ([id number]) 1955 F Date Time Provider Department 10/18/24 9:20 AM CLIFTON HUNG FAMPWS During your visit today, we recorded the following information about you: Temperature Pulse Respiration Blood pressure 97.6 degrees 62/minute 16/minute 132/82 Weight 63.5 kg Clifton Hung MD 10/18/2024 10:31 AM Signed Chief Complaint Patient presents with: F/U 6 months HPI Dom Crowder Austin is a 69 year old female who presents here today for 6 month follow up. Patient with hx of HTN, hyperlipidemia, SEBAS, DM2, CAD, hyperparathyroid, hx of breast cancer, and those as below. Patient has pain in left elbow 2-3 days on the lateral side and difficult to straighten the arm out. Will get tingling in her 2nd and 3rd digits. Does clean the chucrh 3 days a week.. Patient declined Flu/COVID. Patient sees Hematology/oncology next visit 03/2025 Patient sees urology next visit 01/2025 Patient sees Endrocrinology next visit 10/2024 Patient sees Ophthalmology last visit 09/2024 Patient sees Cardiology - [facility] last visit 04/2024 Past medical history, appointments, medications, allergies reviewed. 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 CAD (coronary artery disease) Cataract Colon polyp 2011 Controlled type 2 diabetes [...] on file at physician's office 04/08/2023 DPA: Carmella () Meniere disease, right 10/29/2017 Mixed hyperlipidemia [...] Date 2D ECHO (EXEP) 06/30/2017 EF=65%, trivial CT, TI and 1+ PI Unchanged from 04/2017 2D ECHO (EXEP) 05/14/2021 EF=60%, 1+ TI, trival CT, AI, PI 2D ECHO (EXEP) 09/16/2021 EF=60%, no significant valve disease BREAST LUMPECTOMY HX Left 04/08/2021 BUNIONECTOMY, LAPIDUS-TYPE 2009 left great toe BX BREAST W/DEVICE 1ST LESION STEREOTACTIC GUID Left 03/25/2021 DELIVERY ONLY CHOLECYSTECTOMY 2004 Cholecystectomy COLONOSCOPY 08/07/2015 no polyps, recheck 3-5 yrs COLONOSCOPY AND POLYPECTOMY 10/12, 10/13 Dr Avila; hyperplastic polyps COLONOSCOPY FLX DX W/COLLJ SPEC WHEN PFRMD 08/09/2018 Colonoscopy ESOPHAGOGASTRODUODENOS COPY TRANSORAL DIAGNOSTIC 08/09/2018 EGD HEART CATHETERIZATION 2004 [...] stents to mid and proximal left anterior dominick (more content not included)... Normal [facility] 25(OH)D3 [facility] 25-hydroxyvitamin D3 [Mass/Vol] 34.7 ng/mL Normal 31.0-80.0 [facility] Comment on above: Order Comment: Speci men Type: BLOOD SPECIMENOrdering Facility: [facility] Address: [address] [place] [address] Result Comment: Clas sification of 25 [place] Vitamin D status: Deficiency/Insufficiency: < or = 30 ng/ml. Sufficiency/Optimal Levels: 31-80 ng/mL Toxicity: > 100 ng/mL. Test performed by chemiluminescent immunoassay. Performed By: #### 1 989-3 ####[facility] LABCLIA [id number] [place] [address] [place] Basic metabolic 2000 panelon 10-14-2024 Anion gap [Moles/Vol] 10 mmol/L Normal 8-15 [facility] Comment on above: Order Comment: Speci men Type: BLOOD SPECIMENOrdering Facility: [facility] Address: [address] [place] [address] Performed By: #### 2 4321-2, LIPNF ####[facility] LABIA [id number] [place] [address] [place] Calcium [Mass/Vol] 9.2 mg/dL Normal 8.5-10.2 [facility] Comment on above: Order Comment: Speci men Type: BLOOD SPECIMENOrdering Facility: [facility] Address: [address] [place] [address] Performed By: #### 2 4321-2, LIPNF ####[facility] LABCLIA [id number] [place] [address] [place] Chloride [Moles/Vol] 104 mmol/L Normal 98-107 [facility] Comment on above: Order Comment: Speci men Type: BLOOD SPECIMENOrdering Facility: [facility] Address: [address] [place] [address] Performed By: #### 2 4321-2, LIPNF ####[facility] LABCLIA [id number] [place] [id number] [place] CO2 [Moles/Vol] 28 mmol/L Normal 22-30 [facility] Comment on above: Order Comment: Speci men Type: BLOOD SPECIMENOrdering Facility: [facility] Address: [address] [place] [address] Performed By: #### 2 4321-2, LIPNF ####[facility] LABCLIA [id number] [place] [address] [place] Creatinine [Mass/Vol] 0.79 mg/dL Normal 0.58-0.96 [facility] Comment on above: Order Comment: Speci men Type: BLOOD SPECIMENOrdering Facility: [facility] Address: [address] [place] [address] Performed By: #### 2 4321-2, LIPNF ####[facility] LABCLIA [id number] [place] [address] [place] [facility] Creatinine and Glomerular filtration rate.predicted panel (S/P/Bld) 82 mL/min/1.73m??? Normal >=60 [facility] Comment on above: Order Comment: Speci men Type: BLOOD SPECIMENOrdering Facility: [facility] Address: [address] [place] [address] Result Comment: Richa mated Glomerular Filtration Rate (eGFR) is calculated using the 2020 CKD-EPI creatinine equation. This equation utilizes serum creatinine, sex, and age as parameters. The creatinine assay has traceable calibration to isotope dilution-mass spectrometry. Refer to KDIGO guidelines for clinical interpretation. In patients with unstable renal function, e.g. those with acute kidney injury, the eGFR may not accurately reflect actual GFR. Performed By: #### 2 4321-2, LIPNF ####[facility] LABCLIA [id number] [place] [address] [place] Glucose [Mass/Vol] 103 mg/dL High 74-99 [facility] Comment on above: Order Comment: Speci men Type: BLOOD SPECIMENOrdering Facility: [facility] Address: [address] [place] [address] Result Comment: The [place] Diabetes Association (ADA) provides guidance for cutoff values for fasting glucose and random glucose. The ADA defines fasting as no caloric intake for at least 8 hours. Fasting plasma glucose results between 100 to 125 [...] Standards of Medical Care in Diabetes 2016, [place] Diabetes Association. Diabetes Care. 2016.39(Suppl 1). Performed By: #### 2 4321-2, LIPNF ####[facility] LABCLIA [id number] [place] [address] [place] Potassium [Moles/Vol] 4.2 mmol/L Normal 3.7-5.1 [facility] Comment on above: Order Comment: Speci men Type: BLOOD SPECIMENOrdering Facility: [facility] Address: [address] [place] [address] Performed By: #### 2 4321-2, LIPNF ####[facility] LABCLIA [id number] [place] [address] [place] Sodium [Moles/Vol] 142 mmol/L Normal 136-144 [facility] Comment on above: Order Comment: Speci men Type: BLOOD SPECIMENOrdering Facility: [facility] Address: [address] [place] [address] Performed By: #### 2 4321-2, LIPNF ####[facility] LABCLIA [id number] [place] [address] [place] Urea nitrogen [Mass/Vol] 18 mg/dL Normal 7-21 [facility] Comment on above: Order Comment: Speci men Type: BLOOD SPECIMENOrdering Facility: [facility] Address: [address] [place] [address] Performed By: #### 2 4321-2, LIPNF ####[facility] LABCLIA [id number] [address] OF [facility] HbA1c (Bld)on 10-14-2024 Average glucose Estimated from glycated hemoglobin (Bld) [Mass/Vol] 131 mg/dL Normal [facility] Comment on above: Order Comment: Taran acevedo Type: BLOOD SPECIMENOrdering Facility: [facility] Address: [address] [place] [address] Result Comment: eAG: (Estimated average glucose) is a calculated value from HgbA1c and is healthcare sales representative of the average blood glucose level in the last 2-3 month period. Performed By: #### 5 5454-3 ####[facility] LABIA [id number] [address] HbA1c (Bld) [Mass fraction] 6.2 % High 4.3-5.6 [facility] Comment on above: Order Comment: Taran acevedo Type: BLOOD SPECIMENOrdering Facility: [facility] Address: [address] [place] [address] Result Comment: [place] Diabetes Association guidelines indicate that patients with HgbA1c in the range 5.7-6.4% are at increased risk for development of diabetes, and intervention by lifestyle modification may be beneficial. HgbA1c greater or equal to 6.5% is considered diagnostic of diabetes. Performed By: #### 5 5454-3 ####[facility] LABIA [id number] [address] OF [place] LIPID PANEL, NONFASTINGon Cholesterol [Mass/Vol] 202 mg/dL High <200 [facility] Comment on above: Order Comment: Taran acevedo Type: BLOOD SPECIMENOrdering Facility: [facility] Address: [address] [place] [address] Result Comment: <200 mg/dL, Desirable 200-239 mg/dL, Borderline high >239 mg/dL, High Performed By: #### 2 4321-2, LIPNF ####[facility] LABCLIA [id number] [place] [address] [place] HDL CHOLESTEROL, NF 45 mg/dL Normal >39 [facility] Comment on above: Order Comment: Taran acevedo Type: BLOOD SPECIMENOrdering Facility: [facility] Address: [address] [place] [address] Result Comment: 40-5 9 mg/dL, Acceptable >59 mg/dL, High: Negative risk factor for coronary heart disease <40 mg/dL, Low: Positive risk factor for coronary heart disease Performed By: #### 2 4321-2, LIPNF ####[facility] LABCLIA [id number] [place] [address] [place] LDL CHOLESTEROL, NF 138 mg/dL High <100 [facility] Comment on above: Order Comment: Taran acevedo Type: BLOOD SPECIMENOrdering Facility: [facility] Address: [address] [place] [address] Result Comment: <100 mg/dL, Optimal 100-129 mg/dL, Near optimal/above optimal 130-159 mg/dL, Borderline high 160-189 mg/dL, High >189 mg/dL, Very high Secondary prevention optimal LDL Cholesterol levels are recommended to be < 70 mg/dL Performed By: #### 2 4321-2, LIPNF ####[facility] LABCLIA [id number] [place] [address] [place] LDL/HDL RATIO, NF 3.07 mg/dL High <2.54 [facility] Comment on above: Order Comment: Taran acevedo Type: BLOOD SPECIMENOrdering Facility: [facility] Address: [address] [place] [address] Result Comment: Michaelle mayes: 1. National Cholesterol Education Program ATP III Guideline At-A-Glance Quick Desk Reference: National Heart, Lung, and Blood [place]. National Institutes of Health. 2001: NIH Publication No. 01-3305. 2. An International Atherosclerosis Society position paper: global recommendations for the management of dyslipidemia: executive summary, Atherosclerosis. 2014: 232(2):410-413. Performed By: #### 2 4321-2, LIPNF ####[facility] LABCLIA [id number] [place] [address] [place] NON HDL CHOL, NF 157 mg/dL High <130 [facility] Comment on above: Order Comment: Speci men Type: BLOOD SPECIMENOrdering Facility: [facility] Address: [address] [place] [address] Result Comment: <130 mg/dL, Optimal 130-159 mg/dL, Near optimal/above optimal 160-189 mg/dL, Borderline high 190-219 mg/dL, High >219 mg/dL, Very high Secondary prevention optimal non HDL Cholesterol levels are recommended to be <100 mg/dL Performed By: #### 2 4321-2, LIPNF ####[facility] LABCLIA [id number] [place] [address] [place] T CHOL/HDL RATIO NF 4.49 mg/dL Normal <5.10 [facility] Comment on above: Order Comment: Speci men Type: BLOOD SPECIMENOrdering Facility: [facility] [facility] Address: [address] [place] [address] Performed By: #### 2 4321-2, LIPNF ####[facility] LABCLIA [id number] [place] [address] [place] TRIGLYCERIDES, NF 94 mg/dL Normal <150 [facility] Comment on above: Order Comment: Speci men Type: BLOOD SPECIMENOrdering Facility: [facility] Address: [address] [place] [address] Result Comment: <150 mg/dL, Normal 150-199 mg/dL, Borderline high 200-499 mg/dL, High >499 mg/dL, Very high Performed By: #### 2 4321-2, LIPNF ####[facility] LABCLIA [id number] [place] [address] [place] VLDL CHOLESTEROL, NF 19 mg/dL Normal <30 [facility] Comment on above: Order Comment: Speci men Type: BLOOD SPECIMENOrdering Facility: [facility] Address: [address] [place] [address] Performed By: #### 2 4321-2, LIPNF ####[facility] LABCLIA [id number] [id number] [id number] [place] CNPNon 10-13-2024 CNPN Telephone (FAMPWS) DOM AVILA ([id number]) 1955 F Date Time Provider Department [facility] During your visit today, we recorded the following information about you: Sylwia Kirk RN 10/13/2024 10:01 AM Signed Patient calls and states that she has a 6 month follow up on 10/18. Patient asking if provider wants her to get labs done prior to appointment? Please review and advise, AGNES Estrada Rayanne, PA-C 10/13/2024 10:15 AM Signed Labs placed. Shakeel Yang MA 10/13/2024 10:22 AM Signed Left detailed message. Shakeel Yang MA Allergies As of Date: 10/13/2024 Noted Allergy Reaction BRILINTA (TICAGRELOR) 06/28/2017 12 - Shortness of Breath CRESTOR (ROSUVASTATIN) 04/10/2020 17 - Myalgia KEFLEX (CEPHALEXIN) 02/02/2006 14 - Other: See Comments Comments: facial flushing LIPITOR (ATORVASTATIN) 07/21/2013 14 - Other: See Comments Comments: myalgia LOVASTATIN 07/21/2013 14 - Other: See Comments Comments: myalgia NORCO (HYDROCODONE-ACETAMINO PHEN) 10/29/2016 9 - Itching Date Reviewed: 09/22/2024 Reviewed by: Kat Acuna LPN - Fully Assessed Reason for Visit: Lab Orders [1688] Primary Visit Diagnosis:Controlled type 2 diabetes mellitus without complication, without long-term current use of insulin (HCC) [E11.9] Other Visit Diagnoses:Vitamin D deficiency [E55.9] Mixed hyperlipidemia [E78.2] Order(s):VITAMIN D 25 HYDROXY [SQVITD] Order #: [id number] FUTURE HEMOGLOBIN A1C [YTDWQ3L] Order #: [id number] FUTURE LIPID PANEL, NONFASTING [SQLIPNF] Order #: [id number] FUTURE BASIC METABOLIC PANEL [SQBMP] Order #: [id number] FUTURE Prescriptions as of 10/13/2024 - dexAMETHasone (DECADRON) 1 mg tablet Take the tablet at 11 pm and go for labs the next morning on fasting at 8 am - OTC NUTRITIONAL SUPPLEMENT vitamin - pioglitazone (ACTOS) 15 mg tablet Take 1 tablet by mouth once daily. - omeprazole (PRILOSEC) 40 mg capsule Take 1 capsule by mouth once daily. - doxycycline (VIBRA-TABS) 100 mg tablet Take 200 mg by mouth one time only. - coenzyme Q10 (COENZYME Q-10) 100 mg cap capsule Ubidecarenone Active 100 MG DAILY August 23, 2019 3:27pm - hjjufp-ziyeoadg-fryiqp e (CREON 36) 36,000-114,000- 180,000 unit delayed release capsule .COMPLEX - lisinopril (ZESTRIL) 40 mg tablet Take 40 mg by mouth once daily. - estradiol (ESTRACE) 0.01 % (0.1 mg/gram) vaginal cream Use 1 g vaginally as directed. Insert 1 gm vaginally every night x 14 nights then insert 1 gm vaginally twice weekly - tamoxifen (NOLVADEX) 20 mg tablet Take 1 tablet (20 mg) by mouth once daily. - Calcium Citrate-Vitamin D3 (CITRACAL+D) 315 mg-6.25 mcg (250 unit) tab Take 2 tablets by mouth once daily. - ezetimibe (ZETIA) 10 mg tablet Take 1 tablet by mouth once daily. - metFORMIN (GLUCOPHAGE) 500 mg tablet Take 2 tablets by mouth twice daily with meals. - ammonium lactate (LAC-HYDRIN) 12 % lotion Apply 1 application to affected area twice daily as needed. - Clobetasol Propionate 0.05 % gel Apply 1 application to affected area as needed. - acetaminophen (TYLENOL) 500 mg tablet Take 1,000 mg by mouth every 8 hours as needed. - nitroglycerin sublingual (NITROQUICK) 0.4 mg SL tablet Dissolve 1 tablet under the tongue every 5 minutes as needed for Chest Pain. - ketoconazole (NIZORAL) 2 % shampoo Apply 1 application to affected area once daily as needed. - montelukast (SINGULAIR) 10 mg tablet Take 10 mg by mouth daily at bedtime. - metoprolol succinate ER (TOPROL XL) 25 mg 24 hr tablet Take 1 tablet by mouth twice daily. Per Dr. Gomez - LACTOBACILLUS ACIDOPHILUS (PROBIOTIC ORAL) Take 1 tablet by mouth once daily. 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] 01/16/2016 Diabetic eye exam (HCC) [Z01.00, E11.9] 01/16/2016 Colon cancer screening [Z12.11] 01/16/2016 Controlled type 2 diabetes mellitus without com*10/22/2016 Atherosclerosis of curyung coronary artery with *01/09/2017 S/P angioplasty with stent [Z95.820] 01/09/2017 Meniere disease, right [H81.01] 10/29/2017 History of transient ischemic attack (TIA) [Z86*10/29/2017 Garibay's cyst of knee, left [M71.22] 03/02/2018 Psoriasis [L40.9] Ductal carcinoma in situ (DCIS) of left breast *05/26/2021 Irritable bowel syndrome with diarrhea [K58.0] 05/26/2021 Foot callus [L84] 05/26/2021 Other skin ramona (more content not included)... Normal [facility] Cortis p Dex SerPl-ncon Cortisol post dose dexamethasone [Mass/Vol] 2.0 ug/dL High <1.8 [facility] Comment on above: Order Comment: Taran acevedo Type: BLOOD SPECIMENOrdering Facility: [facility] Address: [address] [place] [address] Result Comment: Afte r overnight 1 mg dexamethasone, an magician/illusionist cortisol of <1.8 ug/dL may indicate an adequate cortisol suppression. This result should be interpreted within the clinical context and other test results. Dahlia et al. Evidence for the Low Dose Dexamethasone Suppression Test to Screen for [place]'s Syndrome - Recommendations for a Protocol for Biochemistry Laboratories. 1997 [employer]. Clin. Biochem. 34 222-229. Performed By: #### 4 7851-1 ####[facility] LABIA [id number] [place] [address] [place] ACTH [facility] 10-02-2024 Corticotropin (P) [Mass/Vol] 25.6 pg/mL Normal 7.2-63.3 [facility] Comment on above: Order Comment: Taran acevedo Type: BLOOD SPECIMENOrdering Facility: [facility] Address: [address] [place] [address] Result Comment: ACTH Reference Range: 7-10 am: 7.2 - 63.3 pg/mL Performed By: #### 2 141-0 ####[facility] LABIA [id number] [place] [address] [place] ALDOSTERONE/DIRECT RENIN RAT IOon 10-02-2024 JONATHAN RENIN RATIO 1.2 Normal <3.8 [facility] Comment on above: Order Comment: Taran acevedo Type: BLOOD SPECIMENOrdering Facility: [facility] Address: [address] [place] [address] Result Comment: A ra ben of aldosterone in ng/dL to direct renin in pg/mL greater than or equal to 3.8 is a positive screening test result for primary aldosteronism, when aldosterone is greater than or equal to 15 ng/dL. Performed By: #### A LDREN ####[facility] LABCLIA [id number] [place] [address] [place] Aldosterone [Mass/Vol] 6.1 ng/dL Normal 0.0-<35.4 [facility] Comment on above: Order Comment: Taran acevedo Type: BLOOD SPECIMENOrdering Facility: [facility] Address: [address] [place] [address] Result Comment: The reference interval for serum/plasma aldosterone is based on a normal sodium intake and upright position. High sodium intake may suppress aldosterone and low sodium intake may increase aldosterone. The supine reference interval is <23.7 ng/dL. A ratio of aldosterone in ng/dL to direct renin in pg/mL greater than or equal to 3.8 is a positive screening test result for primary aldosteronism, when aldosterone is greater than or equal to 15 ng/dL. Performed By: #### A LDREN ####[facility] LABCLIA [id number] [address] [place] [facility] DIRECT RENIN 5.2 pg/mL Normal 3.6-81.6 [facility] Comment on above: Order Comment: Taran acevedo Type: BLOOD SPECIMENOrdering Facility: [facility] Address: [address] [place] [address] Result Comment: The reference interval for direct renin is based on an upright position. The supine reference intervals are: Age <41 years: 3.2-33.2 pg/mL Age >=41 years: 2.5-45.1 pg/mL A ratio of aldosterone in ng/dL to direct renin in pg/mL greater than or equal to 3.8 is a positive screening test result for primary aldosteronism, when aldosterone is greater than or equal to 15 ng/dL. Performed By: #### A LDREN ####[facility] LABCLIA [id number] [place] [address] [place] PATIENT UPRIGHT OR SUPINE Upright Normal [facility] Comment on above: Order Comment: Taran acevedo Type: BLOOD SPECIMENOrdering Facility: [facility] Address: [address] [place] [address] Performed By: #### A ADITI ####[facility] LABCLIA [id number] [facility] [id number] [address] [place] DEXAMETHASONEon 10-02-2024 DEXAMETHASONE <50.0 Normal [facility] Comment on above: Order Comment: Speci men Type: BLOOD SPECIMENOrdering Facility: [facility] Address: [address] [place] [address] Result Comment: INTE RPRETIVE INFORMATION: Dexamethasone, Serum or Plasma by LC-MS/MS Adults baseline: Less than 50 ng/dL 8:00 AM draw following 1 mg dexamethasone between 11:00 pm and 12:00 am the previous evenin - 295 ng/dL 8:00 AM draw following 8 mg dexamethasone (4 x 2 mg doses) between 11:00 pm and 12:00 am the previous evenin - 2850 ng/dL This test was developed and its performance characteristics determined by [facility]. It has not been cleared or approved by the US Food and Drug Administration. This test was performed in a CLIA certified laboratory and is intended for clinical purposes. Performed By: [facility] [address] [place] [address] Inside Tester: Jason Shore MD, PhD [place] Number: [id number] Performed By: #### Aldair CORREA ####[facility] [id number] [place] [address] DHEA-S BLDon 10-02-2024 DHEA-S [Mass/Vol] 44.2 ug/dL Normal <=246.9 [facility] Comment on above: Order Comment: Speci men Type: BLOOD SPECIMENOrdering Facility: [facility] Address: [address] [place] [address] Result Comment: Refe rence ranges are age and gender specific. For additional information, reference range tables can be found in the laboratory test directory. The normal values are based on the following source: Dehydroepiandrosterone sulfate (DHEA S) [package insert V 17.0 Greenlandic]. [facility], [place], [place]: June 2013. Performed By: #### Aldair AVITIA ####[facility] LABCLIA [id number] [address] [id number] [id number] [place] POTASSIUMon 10-02-2024 Potassium [Moles/Vol] 3.8 mmol/L Normal 3.7-5.1 [facility] Comment on above: Order Comment: Speci men Type: BLOOD SPECIMENOrdering Facility: [facility] Address: [address] [place] [address] Performed By: #### K 1 ####[facility] LAURENT MILLTEXHOMANCLIA [id number] [place] [id number] [place] CNOVon 09-22-2024 CNOV Office Visit (ENWSTR ) DOM AVILA ([id number]) 1955 F Date Time Provider Department 09/22/24 9:20 AM ALEXA MATUTE ENWSTR During your visit today, we recorded the following information about you: Pulse Respiration Blood pressure Weight 72/minute 12/minute 120/68 63.2 kg Alexa Matute MD 09/24/2024 8:21 PM Signed [facility] Follow up note History of Present Illness: Ms. Dom Avila is a 68 year old female coming today for evaluation of adrenal nodule Initial visit/ LV 07/11/24 Patient referred by: Ori Lord DO (Urology) She was seeing urology for UTIs, which first started 1-1.5 years ago. She has had atleast 2 or 3 within 1 year. She thinks she is not having any UTIs since last fall Patient Also described the following: Lost weight due to low appetite Has palpitations intermittently and was diagnosed to have PVCs Denied, Skin stretch benton, easy bruising, excess hair growth over face/chin/chest/or abdomen, voice hoarseness, difficulty raising arms overhead, difficulty getting up from a seated position Headache, Flushing, sweating, Chest pain, Tremors Episodes of Headache, Sweating, palpitations or tremor: No Previous use of Steroids, oral, inhalers, injections: short term use Past Medical History: PAST MEDICAL HISTORY Diagnosis Date Advance directive discussed with patient 04/08/2023 Discussed 03/2023: Up to date Amaurosis fugax 10/29/2017 TIA; right visual disturbance 06/2017 Arthritis tendonitis, arthritis 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 CAD (coronary artery disease) Cataract Colon polyp 2011 Controlled type 2 diabetes [...] on file at physician's office 04/08/2023 DPA: Carmella () Meniere disease, right 10/29/2017 Mixed hyperlipidemia [...] Well adult exam 01/16/2016 Last done: 09/08/2018 Surgical History: PAST SURGICAL HISTORY Procedure Laterality Date 2D ECHO (EXEP) 06/30/2017 EF=65%, trivial CT, TI and 1+ PI Unchanged from 04/2017 2D ECHO (EXEP) 05/14/2021 EF=60%, 1+ TI, trival CT, AI, PI 2D ECHO (EXEP) 09/16/2021 EF=60%, no significant valve disease BREAST LUMPECTOMY HX Left 04/08/2021 BUNIONECTOMY, LAPIDUS-TYPE 2009 left great toe BX BREAST W/DEVICE 1ST LESION STEREOTACTIC GUID Left 03/25/2021 DELIVERY ONLY CHOLECYSTECTOMY 2004 Cholecystectomy COLONOSCOPY 08/07/2015 no polyps, recheck 3-5 yrs COLONOSCOPY AND POLYPECTOMY 10/12, 10/13 Dr Avila; hyperplastic polyps COLONOSCOPY FLX DX W/COLLJ SPEC WHEN PFRMD 08/09/2018 Colonoscopy ESOPHAGOGASTRODUODENOS COPY TRANSORAL DIAGNOSTIC 08/09/2018 EGD HEART CATHETERIZATION 2004 [...] 10/2016 trigger finger release x2 REPAIR, DETACHED RETIN (more content not included)... Normal [facility] CNOVSPon 09-14-2024 CNOVSP Visit (SP) Office (DEX) DOM AVILA ([id number]) 1955 F Date Time Provider Department 09/14/24 9:00 AM CHAD MARIEE During your visit today, we recorded the following information about you: Temperature Pulse Blood pressure Weight 97.7 degrees 72/minute 155/83 63.2 kg Chad Mariee APRN.CNP 09/14/2024 9:22 AM Signed Chief Complaint Patient presents with: Established Patient HPI: Dom Avila is a 69 year old female who presents here today for follow up DCIS. Per Dr. Georges previous note: H/o [id number]-[id number] diabetes mellitus, hypertension, ASCAD, and TIA who [...] breast lumpectomy for DCIS on 04/08/2021 at [facility] Pathology (from [facility]) reveals - ductal carcinoma in situ...,size of DCIS - 1.0 x 0.4 cm...,architectural type - cribriform..., nuclear grade 1-2..., necrosis - present central (expansive comedo necrosis)..., biopsy cavity is 0.5 cm from closest anterior margin (which is skin)..., ER >95%, LA >95% Postoperative course is unremarkable with no swelling or pain in her lumpectomy site. She is here today to discuss adjuvant therapy and chemoprevention for breast cancer. RADIATION:06/03/21 - 06/24/21 Current therapy:Tamoxifen Began after radiation No new concerns today. Appetite:It's not like it used to be. Wt. down 7# since March. Energy level:Good. Denies fevers or recent illness. Resp:denies cough or sob-follow up by PULM h/o seasonal allergies/sleep apnea-wears CPAP at hs sometimes Cardiac:denies chest pain/occ. palpitations-Followed by cardiology twice yearly GI:denies abd pain, n/v, h/o IBS, occ. constipation/diarrhea- followed by Friend/GI :denies dysuria/hematuria Extrem:denies pain Endo:hot flashes Not bad. 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 2024 The ROS is otherwise negative. Past medical history, appointments, medications, allergies reviewed. No changes. EXAM: BP 155/83 Pulse 72 Temp 36.5 ?C (97.7 ?F) (Temporal) Wt 63.2 kg (139 lb 5.3 oz) SpO2 96% BMI 24.76 kg/m? APPEARANCE Well appearing, alert, in no acute distress, well-hydrated, well nourished. HEART RRR with normal S1 and S2, no murmurs LUNG clear to auscultation BREAST FEMALE no mass/nodule b/l, scar to L upper LYMPH NODES No cervical lymphadenopathy, No supraclavicular lymphadenopathy, and No axillary lymphadenopathy. ABDOMEN bowel sounds normoactive, soft, non-tender EXTREMITIES No edema NEURO Awake, alert and oriented x 3, Normal gait, and No involuntary motions. SKIN Skin color, texture, turgor normal, no suspicious rashes or lesions ASSESSMENT/PLAN: 1. Ductal carcinoma in situ (DCIS) of left breast - ICD9: 233.0, ICD10: D05.12 (primary diagnosis) - No new concerning findings on exam. - Tolerating tamoxifen well. - Continue tamoxifen. 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 - Mammogram due March 2025. - Follow up after above. - Pt. aware to call office with any questions/concerns. The sensitive examination was discussed with the Patient or Patient's Authorized Associate Justice. As applicable, any other physician, advance practice provider, medical student, or other health professional student that will be observing or involved in the sensitive examination for educational or training purposes was discussed with the Patient or Authorized Associate Justice. The Patient or Authorized Associate Justice has agreed to proceed with the sensitive examination. (Sensitive examination includes inspection and/or palpation of the breasts, pelvis, prostate and anorectal regions) The patient indicates understanding of these issues and agrees with the plan. All documentation from previous visit of 03/14/24-Dr. Georges/ (more content not included)... Normal [facility] CT ADRENAL WO/W IVCONon 10-0 CT ADRENAL WO/W IVCON * * *Final Report* * * DATE OF EXAM: Aug 15 2024 9:44AM [facility] 0536 - CT ADRENAL WO/W IVCON / PROCEDURE REASON: multiple diagnoses * * * * Physician Interpretation * * * * EXAMINATION: CT ABDOMEN / ADRENAL GLANDS WITHOUT IV CONTRAST CLINICAL HISTORY: Adrenal adenoma TECHNIQUE: Thin section spiral imaging through the adrenal glands was performed without IV or oral contrast due to the clinical indication. This does limit the exam for some other diagnoses. MQ: CTAdWO_2 Contrast: IV: None Oral: None CT Radiation dose: Integrated dose-length product (DLP) for this visit = 258 mGy*cm. CT Dose Reduction Employed: Automated exposure control(AEC) and iterative recon COMPARISON: CT abdomen and pelvis 11/25/2022 and prior RESULT: Adrenal glands: Right adrenal gland: No nodules, masses or thickening. Left adrenal gland: A 0.7 x 0.6 x 1.0 cm hypoattenuating nodule of the left adrenal gland demonstrates precontrast attenuation of adenoma (6 HU), no significant interval change compared to 05/2019 also favoring benign process. Abdomen: Liver: Unremarkable. Biliary System: Gallbladder is underdistended. Spleen: No splenomegaly. Punctate calcifications likely granulomas. Pancreas: No pancreatic duct dilation. Otherwise unremarkable. Kidneys: No stones or hydronephrosis. Stable 1.1 cm cortical cyst in the right lateral interpolar region. Lymph Nodes: No abdominal lymphadenopathy. Mesentery/Peritoneum: Minimal fat stranding in the mesentery of the left flank adjacent small bowel but no focal lesion or obstruction. No ascites or mass. GI Tract: Imaged segments are unremarkable. Vasculature: No aortic aneurysm, no significant atherosclerotic plaque Lower thorax and bones: No significant findings. Jewish Thought Professor (topogram) images: No additional findings. IMPRESSION: 1. Stable 1.0 cm left adrenal adenoma. 2. Minimal mesenteric fat stranding in the left flank, nonspecific. Color Checker Roving Or Yarn: [facility] Transcribe Date/Time: Aug 15 2024 9:33A Dictated by : MICHELE CAO MD This examination was interpreted and the report reviewed and electronically signed by: MICHELE CAO MD on Aug 15 2024 10:27AM EST [id number] Normal [facility] CT Adrenal gland WO and W co ntrast Rikki 08-15-2024 IMPRESSION: 1. Stable 1.0 cm left adrenal adenoma. 2. Minimal mesenteric fat stranding in the left flank, nonspecific. Color Checker Roving Or Yarn: [facility] Transcribe Date/Time: Aug 15 2024 9:33A Dictated by : MICHELE CAO MD This examination was interpreted and the report reviewed and electronically signed by: MICHELE CAO MD on Aug 15 2024 10:27AM EST DIVISION OF RADIOLOGY * * *Final Report* * * DATE OF EXAM: Aug 15 2024 9:44AM [facility] 0536 - CT ADRENAL WO/W IVCON / PROCEDURE REASON: multiple diagnoses * * * * Physician Interpretation * * * * EXAMINATION: CT ABDOMEN / ADRENAL GLANDS WITHOUT IV CONTRAST CLINICAL HISTORY: Adrenal adenoma TECHNIQUE: Thin section spiral imaging through the adrenal glands was performed without IV or oral contrast due to the clinical indication. This does limit the exam for some other diagnoses. MQ: CTAdWO_2 Contrast: IV: None Oral: None CT Radiation dose: Integrated dose-length product (DLP) for this visit = 258 mGy*cm. CT Dose Reduction Employed: Automated exposure control(AEC) and iterative recon COMPARISON: CT abdomen and pelvis 11/25/2022 and prior RESULT: Adrenal glands: Right adrenal gland: No nodules, masses or thickening. Left adrenal gland: A 0.7 x 0.6 x 1.0 cm hypoattenuating nodule of the left adrenal gland demonstrates precontrast attenuation of adenoma (6 HU), no significant interval change compared to 05/2019 also favoring benign process. Abdomen: Liver: Unremarkable. Biliary System: Gallbladder is underdistended. Spleen: No splenomegaly. Punctate calcifications likely granulomas. Pancreas: No pancreatic duct dilation. Otherwise unremarkable. Kidneys: No stones or hydronephrosis. Stable 1.1 cm cortical cyst in the right lateral interpolar region. Lymph Nodes: No abdominal lymphadenopathy. Mesentery/Peritoneum: Minimal fat stranding in the mesentery of the left flank adjacent small bowel but no focal lesion or obstruction. No ascites or mass. GI Tract: Imaged segments are unremarkable. Vasculature: No aortic aneurysm, no significant atherosclerotic plaque Lower thorax and bones: No significant findings. Jewish Thought Professor (topogram) images: No additional findings. DIVISION OF RADIOLOGY Provider, [facility] - 08/15/2024 * * *Final Report* * * DATE OF EXAM: Aug 15 2024 9:44AM [facility] 0536 - CT ADRENAL WO/W IVCON / PROCEDURE REASON: multiple diagnoses * * * * Physician Interpretation * * * * EXAMINATION: CT ABDOMEN / ADRENAL GLANDS WITHOUT IV CONTRAST CLINICAL HISTORY: Adrenal adenoma TECHNIQUE: Thin section spiral imaging through the adrenal glands was performed without IV or oral contrast due to the clinical indication. This does limit the exam for some other diagnoses. MQ: CTAdWO_2 Contrast: IV: None Oral: None CT Radiation dose: Integrated dose-length product (DLP) for this visit = 258 mGy*cm. CT Dose Reduction Employed: Automated exposure control(AEC) and iterative recon COMPARISON: CT abdomen and pelvis 11/25/2022 and prior RESULT: Adrenal glands: Right adrenal gland: No nodules, masses or thickening. Left adrenal gland: A 0.7 x 0.6 x 1.0 cm hypoattenuating nodule of the left adrenal gland demonstrates precontrast attenuation of adenoma (6 HU), no significant interval change compared to 05/2019 also favoring benign process. Abdomen: Liver: Unremarkable. Biliary System: Gallbladder is underdistended. Spleen: No splenomegaly. Punctate calcifications likely granulomas. Pancreas: No pancreatic duct dilation. Otherwise unremarkable. Kidneys: No stones or hydronephrosis. Stable 1.1 cm cortical cyst in the right lateral interpolar region. Lymph Nodes: No abdominal lymphadenopathy. Mesentery/Peritoneum: Minimal fat stranding in the mesentery of the left flank adjacent small bowel but no focal lesion or obstruction. No ascites or mass. GI Tract: Imaged segments are unremarkable. Vasculature: No aortic aneurysm, no significant atherosclerotic plaque Lower thorax and bones: No significant findings. Jewish Thought Professor (topogram) images: No additional findings. IMPRESSION IMPRESSION: 1. Stable 1.0 cm left adrenal adenoma. 2. Minimal mesenteric fat stranding in the left flank, nonspecific. Color Checker Roving Or Yarn: KIARA Transcribe Date/Time: Aug 15 2024 9:33A Dictated by : MICHELE CAO MD This examination was interpreted and the report reviewed and electronically signed by: MICHELE CAO MD on Aug 15 2024 10:27AM EST [facility] Radiology Study observation (narrative) [facility] CT Adrenal gland WO and W co ntrast IVOrdered By: Ccf Provider on 08-15-2024 [facility] CREATININE BLDon 08-08-2024 Creatinine [Mass/Vol] 0.96 mg/dL Normal 0.58-0.96 [facility] Comment on above: Order Comment: Speci men Type: BLOOD SPECIMENOrdering Facility: [facility] Address: [address] [place] [address] Performed By: #### C RET1 ####[facility] [id number] [address] [place] Creatinine and Glomerular filtration rate.predicted panel (S/P/Bld) 65 mL/min/1.73m??? Normal >=60 [facility] Comment on above: Order Comment: Speci men Type: BLOOD SPECIMENOrdering Facility: [facility] Address: [address] [place] [address] Result Comment: Richa mated Glomerular Filtration Rate (eGFR) is calculated using the 2020 CKD-EPI creatinine equation. This equation utilizes serum creatinine, sex, and age as parameters. The creatinine assay has traceable calibration to isotope dilution-mass spectrometry. Refer to KDIGO guidelines for clinical interpretation. In patients with unstable renal function, e.g. those with acute kidney injury, the eGFR may not accurately reflect actual GFR. Performed By: #### C RET1 ####[facility] [id number] [address] [place] CNOVon 08-04-2024 CNOV Office Visit (URUN) DOM AVILA ([id number]) 1955 F Date Time Provider Department 08/04/24 10:00 AM ORI LORD During your visit today, we recorded the following information about you: Pulse Blood pressure Weight 63/minute 145/80 63 kg Ori Lord DO 08/11/2024 7:05 PM Signed [facility] ESTABLISHED PATIENT NOTE/HISTORY AND PHYSICAL PATIENT: Dom Avila (69 year old) PCP: Clifton Hung MD DATE OF SERVICE: 08/04/2024 SUBJECTIVE: CHIEF COMPLAINT: Follow Up (1 month cystoscopy.) HISTORY OF PRESENT ILLNESS: The patient was last seen by Ori Lord DO on 07/04/24 . Prior notes were reviewed. Patient returns today for follow up and cysto . In interim doing ok , has no new complaints . 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 (HCC) (01/09/2017), Garibay's cyst of knee, left (03/02/2018), Breast neoplasm, Tis (DCIS), 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), CAD (coronary artery disease), Cataract, Colon polyp (2011), Controlled type 2 diabetes mellitus without complication, without long-term current use of insulin (HCC) (10/22/2016), De Quervain's tenosynovitis, left (07/31/2019), Diabetic eye exam (HCC) (01/16/2016), 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), 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), Encounter for Medicare annual wellness exam (04/08/2023), Essential hypertension (01/16/2016), Female pattern hair loss, Foot callus (05/26/2021), History of colon polyps, History of depression, History of hyperparathyroidism, History of transient ischemic attack (TIA) (10/29/2017), Irritable bowel syndrome with diarrhea (05/26/2021), Living will on file at physician's office (04/08/2023), Meniere disease, right (10/29/2017), Mixed hyperlipidemia (05/31/2009), Narcolepsy without cataplexy (01/16/2016), Obstructive sleep apnea on CPAP, Pancreatic insufficiency (04/08/2023), Psoriasis, RLS (restless legs syndrome) (02/22/2023), Rosacea, S/P angioplasty with stent (01/09/2017), Scalp itch, Seasonal allergies, Vitamin D deficiency (2012), and Well adult exam (01/16/2016). Past Surgical History: -Patient has a past surgical history that includes cholecystectomy (2004); past surgical history of (2004); total abdominal hysterect w/wo rmvl tube ovary (1995); past surgical history of; heart catheterization (2004); past surgical history of (10/2006); delivery only; low back disk surgery (2009); bunionectomy, lapidus-type (2009); colonoscopy AND polypectomy (10/12, 10/13); colonoscopy (08/07/2015); past surgical history of (2014); heart catheterization (01/04/2017); 2d echo (exep) (06/30/2017); stent placement (01/06/2017); stress test (04/20/2017); past surgical history of (Right, 10/2016); heart surgery hx (12/2016); colonoscopy flx dx w/collj spec when pfrmd (08/09/2018); esophagogastroduodenos copy transoral diagnostic (08/09/2018); heart catheterization (10/2018); bx breast w/device 1st lesion stereotactic guid (Left, 03/25/2021); mastectomy, partial (Left, 04/08/2021); breast lumpectomy hx (Left, 04/08/2021); 2d echo (exep) (05/14/2021); 2d echo (exep) (09/16/2021); and repair, detached retina, laser (Right). Medications: -Patient has a current medication list which includes the following prescription(s): OTC NUTRITIONAL SUPPLEMENT, pioglitazone, omeprazole, doxycycline, coenzyme q10, ujrpee-uaxpindh-uirkmq e, lisinopril, estradiol, tamoxifen, calcium citrate-vitamin d3, ezetimibe, metformin, ammonium lactate, clobetasol propionate, acetaminophen, nitroglycerin sublingual, ketoconazole, montelukast, metoprolol succinate er, lactobacillus acidophilus, CPAP, and prevalite. Allergies: -Patient is allergic to brilinta [ticagrelor], crestor [rosuvastatin], keflex [cephalexin], lipitor [atorvastatin], lovastatin, and norco [hydrocodone-acetamino phen]. Family History: -Patient family history includes Coronary Artery Disease (age of onset: 25) in her father; Diabetes in her father, maternal grandfather, and paternal grandmother; Lung cancer in her brother; Pancreatic cancer in her mother; suicide in her son. Social History: -Patient reports that she quit smoking about 29 years ago. Her smoking use included cigarettes. She started smoking about 32 years ago. She has a 4.5 pa (more content not included)... Normal [facility] UA DIP, URINE (POC)on 2023 BILIRUBIN UA (POCT) Negative Negative [facility] CLARITY UA (POCT) Clear [facility] COLOR UA (POCT) Yellow [facility] GLUCOSE UA (POCT) Negative Negative mg/dL [facility] Hemoglobin Ql (U) Negative Negative [facility] Interpretation and review of laboratory results Abnormal [facility] KETONE UA (POCT) Negative Negative mg/dL [facility] LEUKOCYTES UA (POCT) Small Abnormal Negative [facility] NITRITE UA (POCT) Negative Negative [facility] PH UA (POCT) 6.0 4.5 - 8.0 [facility] Protein Ql (U) Negative Negative mg/dL [facility] SPECIFIC GRAVITY UA (POCT) 1.020 1.005 - 1.030 [facility] UROBILINOGEN UA (POCT) 0.2 Normal E.U./d L [facility] Location:[facility], [address] [place] [address] Dr. Anne [facility], [place], [place], [address] [place] [address] POINT OF CARE [facility] CNOVon 07-11-2024 CNOV Office Visit (ENWSTR ) DOM AVILA ([id number]) 1955 F Date Time Provider Department 07/11/24 1:00 PM ALEXA MATUTE ENWSTR During your visit today, we recorded the following information about you: Temperature Pulse Blood pressure Weight 97.4 degrees 68/minute 118/70 63.1 kg Height 1.598 m Alexa Matute MD 07/11/2024 2:04 PM Signed [facility] Initial Clinic Visit Note History of Present Illness: Ms. Dom Avila is a 68 year old female coming today for evaluation of adrenal nodule Patient referred by: Ori Lord DO (Urology) She was seeing urology for UTIs, which first started 1-1.5 years ago. She has had atleast 2 or 3 within 1 year. She thinks she is not having any UTIs since last fall Patient Also described the following: Lost weight due to low appetite Has palpitations intermittently and was diagnosed to have PVCs Denied, Skin stretch benton, easy bruising, excess hair growth over face/chin/chest/or abdomen, voice hoarseness, difficulty raising arms overhead, difficulty getting up from a seated position Headache, Flushing, sweating, Chest pain, Tremors Episodes of Headache, Sweating, palpitations or tremor: No Previous use of Steroids, oral, inhalers, injections: short term use Past Medical History: PAST MEDICAL HISTORY 04/08/2023: Advance directive discussed with patient Comment: Discussed 03/2023: Up to date 10/29/2017: Amaurosis fugax Comment: TIA; right visual disturbance 06/2017 No date: Arthritis Comment: tendonitis, arthritis 01/09/2017: 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 Gomez 03/02/2018: Garibay's cyst of knee, left 03/2021: Breast neoplasm, Tis (DCIS), left No date: CAD (coronary artery disease) No date: Cataract 2012: Colon polyp 10/22/2016: Controlled type 2 diabetes mellitus without complication, without long-term current use of insulin (HCC) 07/31/2019: De Quervain's tenosynovitis, left 01/16/2016: Diabetic eye exam ([facility]) Comment: Lat done: 12/03/2017 No retinopathy 05/26/2021: Ductal carcinoma in situ (DCIS) of left breast 04/2021: Ductal carcinoma in situ of left breast 04/08/2023: Encounter for Medicare annual wellness exam Comment: Medicare Part B: 07/09/2022 Last done: 04/08/2023 01/16/2016: Essential hypertension No date: Female pattern hair loss 05/26/2021: Foot callus No date: History of colon polyps No date: History of depression Comment: when No date: History of hyperparathyroidism 10/29/2017: History of transient ischemic attack (TIA) Comment: 06/29/2017 - R homonomous hemianopia with aphasia for couple hours - negative MRI/A following day 05/26/2021: Irritable bowel syndrome with diarrhea 04/08/2023: Living will on file at physician's office Comment: DPA: Carmella () 10/29/2017: Meniere disease, right 05/31/2009: Mixed hyperlipidemia Comment: statin intolerance 01/16/2016: Narcolepsy without cataplexy Comment: Especially with long drives. Has been on provigil for 5-10 yrs No date: Obstructive sleep apnea on CPAP Comment: Sibilia 04/08/2023: Pancreatic insufficiency Comment: Seeing Dr. Alcantar No date: Psoriasis 02/22/2023: RLS (restless legs syndrome) Comment: Seeing Dr. Olmstead No date: Rosacea Comment: with ocular symptoms 01/09/2017: S/P angioplasty with stent Comment: stents to mid and proximal left anterior descending Art, and angio of ostium of #2 diagonal No date: Scalp itch No date: Seasonal allergies Comment: Dr Pompa 2013: Vitamin D deficiency 01/16/2016: Well adult exam Comment: Last done: 09/08/2018 Surgical History: PAST SURGICAL HISTORY 06/30/2017: 2D ECHO (EXEP) Comment: EF=65%, trivial CT, TI and 1+ PI Unchanged from 04/201705/14/2021: 2D ECHO (EXEP) Comment: EF=60%, 1+ TI, trival CT, AI, PI 09/16/2021: 2D ECHO (EXEP) Comment: EF=60%, no significant valve disease 04/08/2021: BREAST LUMPECTOMY HX; Left Comment: 2009: BUNIONECTOMY, LAPIDUS-TYPE Comment: left great toe 03/25/2021: BX BREAST W/DEVICE 1ST LESION STEREOTACTIC GUID; Left No date: DELIVERY ONLY 2005: CHOLECYSTECTOMY Comment: Cholecystectomy 08/07/2015: COLONOSCOPY Comment: no polyps, recheck 3-5 yrs 10/12, 10/13: COLONOSCOPY AND POLYPECTOMY Comment: Dr Avila; hyperplastic polyps 08/09/2018: COLONOSCOPY FLX DX W/COLLJ SPEC WHEN PFRMD Comment: Colonoscopy 08/09/2018: ESOPHAGOGASTRODUODENOS COPY TRANSORAL DIAGNOSTIC Comment: EGD 2004: HEART CATHETERIZATION Comment: heart cath-normal per patient 01/04/2017: HEART CATHETERIZATION Comment: EF=60%, left anterior desending septal perferator 95-99% stenosis and diagonal branch 85% stenosis, 10/2018: HEART CATHETERIZATION 12/2016: HEART SURGERY HX Comment: Cardiac stents x 2 2009: LOW BACK DISK SURG (more content not included)... Normal [facility] CNOVon 07-04-2024 CNOV Office Visit (URUN) DOM AVILA ([id number]) 1955 F Date Time Provider Department 07/04/24 11:00 AM ORI LORD During your visit today, we recorded the following information about you: Pulse Blood pressure 70/minute 121/76 Ori Lord DO 07/04/2024 11:16 AM Signed [facility] ESTABLISHED PATIENT NOTE/HISTORY AND PHYSICAL PATIENT: Dom Avila (68 year old) PCP: Clifton Hugn MD DATE OF SERVICE: 07/04/2024 SUBJECTIVE: CHIEF COMPLAINT: Patient is here for 6 week f/u. Patient has no new concerns. Patient is scheduled to see an Printmaker on 07/11/24. HISTORY OF PRESENT ILLNESS: The patient was last seen by Ori Lord DO on 05/23/24 . Prior notes were reviewed. Patient returns today for follow up . In interim doing ok , has no new complaints . Reporting now on Prevalite which caused diarrhea and indigestion (advised to f/u w/other provider for this) No new gross hematuria, or UTIs. Quit the coffee completely and now has less freq/urge and still changes pantiliners 2/day (usually more out of habit and hygiene), nocturia 0-1. 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 (HCC) (01/09/2017), Garibay's cyst of knee, left (03/02/2018), Breast neoplasm, Tis (DCIS), 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), CAD (coronary artery disease), Cataract, Colon polyp (2011), Controlled type 2 diabetes mellitus without complication, without long-term current use of insulin (HCC) (10/22/2016), De Quervain's tenosynovitis, left (07/31/2019), Diabetic eye exam (HCC) (01/16/2016), 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), 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), Encounter for Medicare annual wellness exam (04/08/2023), Essential hypertension (01/16/2016), Female pattern hair loss, Foot callus (05/26/2021), History of colon polyps, History of depression, History of hyperparathyroidism, History of transient ischemic attack (TIA) (10/29/2017), Irritable bowel syndrome with diarrhea (05/26/2021), Living will on file at physician's office (04/08/2023), Meniere disease, right (10/29/2017), Mixed hyperlipidemia (05/31/2009), Narcolepsy without cataplexy (01/16/2016), Obstructive sleep apnea on CPAP, Pancreatic insufficiency (04/08/2023), Psoriasis, RLS (restless legs syndrome) (02/22/2023), Rosacea, S/P angioplasty with stent (01/09/2017), Scalp itch, Seasonal allergies, Vitamin D deficiency (2012), and Well adult exam (01/16/2016). Past Surgical History: -Patient has a past surgical history that includes cholecystectomy (2004); past surgical history of (2004); total abdominal hysterect w/wo rmvl tube ovary (1995); past surgical history of; heart catheterization (2004); past surgical history of (10/2006); delivery only; low back disk surgery (2009); bunionectomy, lapidus-type (2009); colonoscopy AND polypectomy (10/12, 10/13); colonoscopy (08/07/2015); past surgical history of (2014); heart catheterization (01/04/2017); 2d echo (exep) (06/30/2017); stent placement (01/06/2017); stress test (04/20/2017); past surgical history of (Right, 10/2016); heart surgery hx (12/2016); colonoscopy flx dx w/collj spec when pfrmd (08/09/2018); esophagogastroduodenos copy transoral diagnostic (08/09/2018); heart catheterization (10/2018); bx breast w/device 1st lesion stereotactic guid (Left, 03/25/2021); mastectomy, partial (Left, 04/08/2021); breast lumpectomy hx (Left, 04/08/2021); 2d echo (exep) (05/14/2021); 2d echo (exep) (09/16/2021); and repair, detached retina, laser (Right). Medications: -Patient has a current medication list which includes the following prescription(s): doxycycline, coenzyme q10, ctzalx-chnlitwm-jmmrtc e, lisinopril, fluconazole, estradiol, tamoxifen, pioglitazone, omeprazole, calcium citrate-vitamin d3, ezetimibe, metformin, ammonium lactate, clobetasol propionate, acetaminophen, nitroglycerin sublingual, ketoconazole, montelukast, metoprolol succinate er, lactobacillus acidophilus, and CPAP. Allergies: -Patient is allergic to brilinta [ticagrelor], crestor [rosuvastatin], keflex [cephalexin], lipitor [atorvastatin], lovastatin, and norco [hydrocodone-acetamino phen]. Family History: -Patient family history includes Coronary Artery Disease (age of onset: 25) in her father; Diabetes in her father, raul (more content not included)... Normal [facility] UA DIP, URINE (POC)on 2023 BILIRUBIN UA (POCT) Negative Negative [facility] CLARITY UA (POCT) Clear [facility] COLOR UA (POCT) Yellow [facility] GLUCOSE UA (POCT) Negative Negative mg/dL [facility] Hemoglobin Ql (U) Negative Negative [facility] Interpretation and review of laboratory results Abnormal [facility] KETONE UA (POCT) Negative Negative mg/dL [facility] LEUKOCYTES UA (POCT) Small Abnormal Negative [facility] NITRITE UA (POCT) Negative Negative [facility] PH UA (POCT) 5.5 4.5 - 8.0 [facility] Protein Ql (U) Negative Negative mg/dL [facility] SPECIFIC GRAVITY UA (POCT) 1.015 1.005 - 1.030 [facility] UROBILINOGEN UA (POCT) 0.2 Normal E.U./d L [facility] Location:[facility], [address] [place] [address] Dr. Anne [address], [place], [place], [id number] [place] [address] POINT OF CARE [facility] CA 19-9 Serial Monitoron CA 19-9 GRAPH Normal [facility] Comment on above: Order Comment: Test( s) [id number]-Znvktqzqzmc; 839108-Wqsez Activity, Plasmawas developed and its performance characteristicsdetermined by [facility]. It has not been cleared or approvedby the Food and Drug Administration.NN Result Comment: SEE SCANNED REPORT Performed By: #### L 3300.1000, L501.6710, L3100.3425, L2100.0000, L3100.5017, L101.9900, L3300.1050, L3200.1100, L100.0100, L501.2450, L501.2400, L500.4050, L3200.0500, L509.6000 ####[facility] [address] [place], [place], [id number] MANUEL + Protein Elect, Serumon 06-28-2024 IMMUNOGLOB G QN TNP Normal [facility] Comment on above: Order Comment: Test( s) [id number]-Yyieilzxlej; 747499-Xtfvq Activity, Plasmawas developed and its performance characteristicsdetermined by [facility]. It has not been cleared or approvedby the Food and Drug Administration.NN Performed By: #### L 3300.1000, L501.6710, L3100.3425, L2100.0000, L3100.5017, L101.9900, L3300.1050, L3200.1100, L100.0100, L501.2450, L501.2400, L500.4050, L3200.0500, L509.6000 ####[facility] [address] [place], [place], [phone]- Adrenocorticotropic Hormoneo n 06-27-2024 ACTH TNP Normal . [facility] Comment on above: Order Comment: Test( s) [id number]-Jwcvokqtmgp; 239425-Nybxc Activity, Plasmawas developed and its performance characteristicsdetermined by [facility]. It has not been cleared or approvedby the Food and Drug Administration.NN Result Comment: Test not performed. One specimen was submitted with requests for multiple tests. The requested testing requires a separate specimen for each test requested. CONTACTED VANDA AT YOUR FACILITY ON 06-07-2024 ACTH reference interval for samples collected between 7 and 10 AM. Performed By: #### L 3300.1000, L501.6710, L3100.3425, L2100.0000, L3100.5017, L101.9900, L3300.1050, L3200.1100, L100.0100, L501.2450, L501.2400, L500.4050, L3200.0500, L509.6000 ####[facility] [address] [place], [address] IgG Subclasseson 06-27-2024 IgG, SUBCLASS 1 726 mg/dL Normal 248-810 [facility] Comment on above: Order Comment: Test( s) [id number]-Rtgtvkfzshb; 251627-Csiar Activity, Plasmawas developed and its performance characteristicsdetermined by [facility]. It has not been cleared or approvedby the Food and Drug Administration.NN Performed By: #### L 3300.1000, L501.6710, L3100.3425, L2100.0000, L3100.5017, L101.9900, L3300.1050, L3200.1100, L100.0100, L501.2450, L501.2400, L500.4050, L3200.0500, L509.6000 ####[facility] [address] [place], [address] IgG, SUBCLASS 2 165 mg/dL Normal 130-555 [facility] Comment on above: Order Comment: Test( s) 475444-Inwgblbumcg; 026310-Cazjn Activity, Plasmawas developed and its performance characteristicsdetermined by [facility]. It has not been cleared or approvedby the Food and Drug Administration.NN Performed By: #### L 3300.1000, L501.6710, L3100.3425, L2100.0000, L3100.5017, L101.9900, L3300.1050, L3200.1100, L100.0100, L501.2450, L501.2400, L500.4050, L3200.0500, L509.6000 ####[facility] [address] [place], [address] IgG, SUBCLASS 3 90 mg/dL Normal 15-102 [facility] Comment on above: Order Comment: Test( s) [id number]-Hbkolliyaff; 434277-Ocwue Activity, Plasmawas developed and its performance characteristicsdetermined by [facility]. It has not been cleared or approvedby the Food and Drug Administration.NN Performed By: #### L 3300.1000, L501.6710, L3100.3425, L2100.0000, L3100.5017, L101.9900, L3300.1050, L3200.1100, L100.0100, L501.2450, L501.2400, L500.4050, L3200.0500, L509.6000 ####[facility] [address] [place], [address] IgG, SUBCLASS 4 7 mg/dL Normal 2-96 [facility] Comment on above: Order Comment: Test( s) [id number]-Wwpdzbfxymc; 739557-Ctlwe Activity, Plasmawas developed and its performance characteristicsdetermined by [facility]. It has not been cleared or approvedby the Food and Drug Administration.NN Performed By: #### L 3300.1000, L501.6710, L3100.3425, L2100.0000, L3100.5017, L101.9900, L3300.1050, L3200.1100, L100.0100, L501.2450, L501.2400, L500.4050, L3200.0500, L509.6000 ####[facility] [address] [place], [address] IGG,QUANT 1152 mg/dL Normal 586-1602 [facility] Comment on above: Order Comment: Test( s) 782273-Ybiydeucbzj; 313396-Ipefm Activity, Plasmawas developed and its performance characteristicsdetermined by [facility]. It has not been cleared or approvedby the Food and Drug Administration.NN Performed By: #### L 3300.1000, L501.6710, L3100.3425, L2100.0000, L3100.5017, L101.9900, L3300.1050, L3200.1100, L100.0100, L501.2450, L501.2400, L500.4050, L3200.0500, L509.6000 ####[facility] [address] [place], [address] Immunoglobulins G/A/M/Giuseppe IMMUNOGLOB E QN 3 IU/mL Low 6-495 [facility] Comment on above: Order Comment: Test( s) 142806-Gjbbhbvomxx; 715546-Kxohe Activity, Plasmawas developed and its performance characteristicsdetermined by [facility]. It has not been cleared or approvedby the Food and Drug Administration.NN Performed By: #### L 3300.1000, L501.6710, L3100.3425, L2100.0000, L3100.5017, L101.9900, L3300.1050, L3200.1100, L100.0100, L501.2450, L501.2400, L500.4050, L3200.0500, L509.6000 ####[facility] [address] [place], [address] L2100.0000on 06-27-2024 ACCA 18 units Normal 0-90 [facility] Comment on above: Order Comment: Test( s) 639589-Glkrwnjmbjn; 979737-Nfhtf Activity, Plasmawas developed and its performance characteristicsdetermined by [facility]. It has not been cleared or approvedby the Food and Drug Administration.NN Result Comment: Nega tive: <80 Equivocal: 80-90 Positive: >90 Performed By: #### L 3300.1000, L501.6710, L3100.3425, L2100.0000, L3100.5017, L101.9900, L3300.1050, L3200.1100, L100.0100, L501.2450, L501.2400, L500.4050, L3200.0500, L509.6000 ####[facility] [address] [place], [place], [id number] ALCA 4 units Normal 0-60 [facility] Comment on above: Order Comment: Test( s) 569099-Okqaxoprmsi; 350882-Jdear Activity, Plasmawas developed and its performance characteristicsdetermined by [facility]. It has not been cleared or approvedby the Food and Drug Administration.NN Result Comment: Nega tive:<55 Equivocal: 55-60 Positive: >60 Performed By: #### L 3300.1000, L501.6710, L3100.3425, L2100.0000, L3100.5017, L101.9900, L3300.1050, L3200.1100, L100.0100, L501.2450, L501.2400, L500.4050, L3200.0500, L509.6000 ####[facility] [address] [place], [place], [id number] AMCA 22 units Normal 0-100 [facility] Comment on above: Order Comment: Test( s) 515803-Fdaxenkguir; 758435-Dmhin Activity, Plasmawas developed and its performance characteristicsdetermined by [facility]. It has not been cleared or approvedby the Food and Drug Administration.NN Result Comment: Nega tive: <90 Equivocal: 90-100 Positive: >100 This test was developed and its performance characteristics determined by [facility]. It has not been cleared or approved by the Food and Drug Administration. The FDA has determined that such clearance or approval is not necessary. Performed By: #### L 3300.1000, L501.6710, L3100.3425, L2100.0000, L3100.5017, L101.9900, L3300.1050, L3200.1100, L100.0100, L501.2450, L501.2400, L500.4050, L3200.0500, L509.6000 ####[facility] [address] [place], [place], [phone] Atypical pANCA Negative Normal Negative [facility] Comment on above: Order Comment: Test( s) 646804-Oiiptbxunfg; 792257-Yntdm Activity, Plasmawas developed and its performance characteristicsdetermined by [facility]. It has not been cleared or approvedby the Food and Drug Administration.NN Performed By: #### L 3300.1000, L501.6710, L3100.3425, L2100.0000, L3100.5017, L101.9900, L3300.1050, L3200.1100, L100.0100, L501.2450, L501.2400, L500.4050, L3200.0500, L509.6000 ####[facility] [address] [place], [place], [id number] COMMENT Comment Normal . [facility] Comment on above: Order Comment: Test( s) 329191-Vplzsravuaw; 212282-Jrmib Activity, Plasmawas developed and its performance characteristicsdetermined by [facility]. It has not been cleared or approvedby the Food and Drug Administration.NN Result Comment: Aundrea antoni is not suggestive of Inflammatory Bowel Disease Performed By: #### L 3300.1000, L501.6710, L3100.3425, L2100.0000, L3100.5017, L101.9900, L3300.1050, L3200.1100, L100.0100, L501.2450, L501.2400, L500.4050, L3200.0500, L509.6000 ####[facility] [address] [place], [place], [id number] Lenny 22 units Normal 0-50 [facility] Comment on above: Order Comment: Test( s) 475358-Wmaugbjughf; 716939-Urxzr Activity, Plasmawas developed and its performance characteristicsdetermined by [facility]. It has not been cleared or approvedby the Food and Drug Administration.NN Result Comment: Nega tive: <45 Equivocal: 45-50 Positive: >50 Performed By: #### L 3300.1000, L501.6710, L3100.3425, L2100.0000, L3100.5017, L101.9900, L3300.1050, L3200.1100, L100.0100, L501.2450, L501.2400, L500.4050, L3200.0500, L509.6000 ####[facility] [address] [place], [place], [phone](674) Renin/Aldosterone Activityon 06-27-2024 ALD/RENIN RATIO 2.3 Normal 0.0-30.0 [facility] Comment on above: Order Comment: Test( s) 162814-Kawgefzkzvq; 615383-Iywlr Activity, Plasmawas developed and its performance characteristicsdetermined by [facility]. It has not been cleared or approvedby the Food and Drug Administration.NN Result Comment: Unit s: ng/dL per ng/mL/hr Performed By: #### L 3300.1000, L501.6710, L3100.3425, L2100.0000, L3100.5017, L101.9900, L3300.1050, L3200.1100, L100.0100, L501.2450, L501.2400, L500.4050, L3200.0500, L509.6000 ####[facility] [address] [place], [place], [phone] ALDOSTERONE,S 3.4 ng/dL Normal 0.0-30.0 [facility] Comment on above: Order Comment: Test( s) 125665-Fcbxffengqf; 001985-Tqgsw Activity, Plasmawas developed and its performance characteristicsdetermined by [facility]. It has not been cleared or approvedby the Food and Drug Administration.NN Performed By: #### L 3300.1000, L501.6710, L3100.3425, L2100.0000, L3100.5017, L101.9900, L3300.1050, L3200.1100, L100.0100, L501.2450, L501.2400, L500.4050, L3200.0500, L509.6000 ####[facility] [address] [place], [place], [address] RENIN, PLASMA 1.500 ng/mL/hr Normal 0.167-5.380 [facility] Comment on above: Order Comment: Test( s) 045028-Ichqkhfnylp; 299014-Qfpoc Activity, Plasmawas developed and its performance characteristicsdetermined by [facility]. It has not been cleared or approvedby the Food and Drug Administration.NN Performed By: #### L 3300.1000, L501.6710, L3100.3425, L2100.0000, L3100.5017, L101.9900, L3300.1050, L3200.1100, L100.0100, L501.2450, L501.2400, L500.4050, L3200.0500, L509.6000 ####[facility] [address] [place], [place], [address] CT Abd/Pelvis W/WO Contrasto n 06-23-2024 CT Abd/Pelvis W/WO Contrast [facility] Imaging Services [address] [place], [place] [address] CT Abd/Pelvis W/WO Contrast MR#: [id number] Acct: [id number] Name: DOM AVILA Rep #: [id number] : 1955 F 68 From: Justen lance MD PCP: Dr. Clifton Hung MD Status: [facility] Study: CT Abd/Pelvis W/WO Contrast Date of Exam: 06/08 05/01 Exam# [id number] Ordering Dr: Carson Alcantar DO [id number] STUDY: CT ABDOMEN AND PELVIS WITH AND WITHOUT CONTRAST REASON FOR EXAM: Female, 68 years old. breast cancer with radiation, diabetes, hysterectomy, cholecystectomy. RADIATION DOSAGE (If Supplied By Facility): CTDIvol = ( 11.62 ) mGy, DLP = ( 1027.99 ) mGycm TECHNIQUE: Transaxial images were obtained from the dome of the diaphragm to the symphysis pubis with oral contrast. ml of Readi-CAT and amp; 100mL Isovue-370 contrast was administered. Sagittal and coronal images were reconstructed. Individualized dose optimization techniques were used for this CT. COMPARISON: MRCP dated January 03, 2024 FINDINGS: The visualized lung bases are unremarkable. The visualized portions of the heart are within normal limits. Normal liver. There are surgical clips in the gallbladder fossa consistent with a prior cholecystectomy. Mild postcholecystectomy dilatation of the CBD 9.2 mm without a radiopaque stone or intraluminal lesion. Normal spleen. Normal pancreas. Normal bilateral adrenal glands. Redemonstration of multiple small bilateral renal cysts which do not requiring additional assessment. No hydronephrosis or renal masses are present. Normal visualized stomach. Normal small intestine. Normal colon. The appendix is visualized and appears normal. No bowel wall thickening is present. No visualized intraluminal bowel masses. No dilatation is present. Normal abdominal aorta. Normal inferior vena cava. Normal retroperitoneum. Normal urinary bladder. There is absence of the uterus consistent with a prior hysterectomy. Normal abdominal wall. There are diffuse degenerative changes of the visualized lumbar spine. CT/CT Abd/Pelvis W/WO Contrast IMPRESSION: 1. There are surgical clips in the gallbladder fossa consistent with a prior cholecystectomy. Mild postcholecystectomy dilatation of the CBD 9.2 mm without a radiopaque stone or intraluminal lesion. Electronically Signed: Justen Masters MD at 10:20 EDT , CC: Dr. Clifton Hung MD; Carson Alcantar DO Color Checker Roving Or Yarn: Signed Normal [facility] Bedside Glucoseon 06-19-2024 FINGERSTICK GLU 150 mg/dL High 74-106 [facility] Comment on above: Result Comment: KAYA GEMENT OF PATIENT CARE PER NURSING PROTOCOL Performed By: #### L 501.080 ####[facility] [address] [place] [place], [address] Colonoscopy Reporton 024 Colonoscopy Report [facility] Medical Records Department [address] [place] [address] Colonoscopy Report MR#: [id number] Acct: [id number] Name: DOM AVILA Rep #: [id number] : 1955 68 From: Carson Alcantar DO PCP: Dr. Clifton Hung MD Status:[facility] Patient Name: Dom Avila Procedure Date: 06/19/2024 11:18 AM Date of : 1955 Age: 68 Procedure: Colonoscopy Indications: Chronic diarrhea Providers: Carson Alcantar DO Referring MD: Clifton Hugn MD Medicines: Monitored Anesthesia Care Patient Profile: This is a 68 year old female. Refer to note in patient chart for documentation of history and physical. Patient has symptoms of chronic abdominal cramping and chronic epigastric abdominal pain. Last Colonoscopy: date unknown. Unable to locate last colonoscopy report. Complications: No immediate complications. Procedure: Pre-Anesthesia Assessment: - Prior to the procedure, a History and Physical was performed, and patient medications and allergies were reviewed. The patient is competent. The risks and benefits of the procedure and the sedation options and risks were discussed with the patient. All questions were answered and informed consent was obtained. Patient identification and proposed procedure were verified by the physician in the pre-procedure area. Mental Status Examination: alert and oriented. Airway Examination: normal oropharyngeal airway and neck mobility. Respiratory Examination: clear to auscultation. CV Examination: normal. Prophylactic Antibiotics: The patient does not require prophylactic antibiotics. Prior Anticoagulants: The patient has taken no anticoagulant or antiplatelet agents except for NSAID medication. ASA Grade Assessment: II - A patient with mild systemic disease. After reviewing the risks and benefits, the patient was deemed in satisfactory condition to undergo the procedure. The anesthesia plan was to use monitored anesthesia care (MAC). Immediately prior to administration of medications, the patient was re-assessed for adequacy to receive sedatives. The heart rate, respiratory rate, oxygen saturations, blood pressure, adequacy of pulmonary ventilation, and response to care were monitored throughout the procedure. The physical status of the patient was re-assessed after the procedure. After I obtained informed consent, the scope was passed under direct vision. Throughout the procedure, the patient's blood pressure, pulse, and oxygen saturations were monitored continuously. The Colonoscope was introduced through the anus and advanced to the terminal ileum. The colonoscopy was performed without difficulty. The patient tolerated the procedure well. The quality of the bowel preparation was adequate. The terminal ileum, ileocecal valve, appendiceal orifice, and rectum were photographed. Scope In: 11:18:59 AM Scope Withdrawal Time 0 hours 9 minutes 7 seconds Scope Out: 11:32:20 AM Total Procedure Duration Time 0 hours 13 minutes 21 seconds Findings: The perianal and digital rectal examinations were normal. An area of mildly congested mucosa was found in the sigmoid colon, in the transverse colon and in the ascending colon. Biopsies for histology were taken with a cold forceps from the entire colon for evaluation of microscopic colitis. Verification of patient identification for the specimen was done. Estimated blood loss was minimal. A few small-mouthed diverticula were found in the sigmoid colon. A patchy area of the terminal ileum was congested. Biopsies were taken with a cold forceps for histology. Verification of patient identification for the specimen was done. Estimated blood loss was minimal. Impression: - Congested mucosa in the sigmoid colon, in the transverse colon and in the ascending colon. Biopsied. - Diverticulosis in the sigmoid colon. - Congested mucosa in the terminal ileum. Biopsied. Recommendation: - Discharge patient to home. - Resume previous diet. - Continue present medications. - Await pathology results. - Repeat colonoscopy in 10 years for screening purposes. Procedure Code(s): --- Professional --- 41418, Colonoscopy, flexible; with biopsy, single or multiple CPT copyright 2021 [employer]. All rights reserved. The codes documented in this report are preliminary and upon field crop farm worker review may be revised to meet current compliance requirements. Carson Alcantar DO 06/19/2024 11:39:02 AM This report has been signed electronically. Number of Addenda: 0 Note Initiated On: 06/19/2024 11:18 AM 06/19/24 1139 Date Carson Alcantar DO Cosigner Signature: Date (if indicated) CC: Dr. Clifton Hung MD; Carson Alcantar DO Date Dictated: (more content not included)... Normal [facility] EGD Reporton 06-19-2024 EGD Report [facility] Medical Records Department [address] [place] [address] EGD Report MR#: [id number] Acct: [id number] Name: DOM AVILA Rep #: [id number] : 1955 68 From: Carson Alcantar DO PCP: Dr. Clifton Hung MD Status:[facility] Patient Name: Dom Avila Procedure Date: 06/19/2024 11:05 AM Date of : 1955 Age: 68 Procedure: Upper GI endoscopy Indications: Epigastric abdominal pain, Functional Dyspepsia Providers: Carson Alcantar DO Referring MD: Clifton Hung MD Medicines: Monitored Anesthesia Care Patient Profile: This is a 68 year old female. Refer to note in patient chart for documentation of history and physical. Patient has symptoms of chronic abdominal cramping and chronic epigastric abdominal pain. Complications: No immediate complications. Procedure: Pre-Anesthesia Assessment: - Prior to the procedure, a History and Physical was performed, and patient medications and allergies were reviewed. The patient is competent. The risks and benefits of the procedure and the sedation options and risks were discussed with the patient. All questions were answered and informed consent was obtained. Patient identification and proposed procedure were verified by the physician in the pre-procedure area. Mental Status Examination: alert and oriented. Airway Examination: normal oropharyngeal airway and neck mobility. Respiratory Examination: clear to auscultation. CV Examination: normal. Prophylactic Antibiotics: The patient does not require prophylactic antibiotics. Prior Anticoagulants: The patient has taken no anticoagulant or antiplatelet agents except for NSAID medication. ASA Grade Assessment: II - A patient with mild systemic disease. After reviewing the risks and benefits, the patient was deemed in satisfactory condition to undergo the procedure. The anesthesia plan was to use monitored anesthesia care (MAC). Immediately prior to administration of medications, the patient was re-assessed for adequacy to receive sedatives. The heart rate, respiratory rate, oxygen saturations, blood pressure, adequacy of pulmonary ventilation, and response to care were monitored throughout the procedure. The physical status of the patient was re-assessed after the procedure. After obtaining informed consent, the endoscope was passed under direct vision. Throughout the procedure, the patient's blood pressure, pulse, and oxygen saturations were monitored continuously. The Colonoscope was introduced through the mouth, and advanced to the second part of duodenum. The upper GI endoscopy was accomplished without difficulty. The patient tolerated the procedure well. Scope In: 11:14:34 AM Scope Out: 11:17:41 AM Total Procedure Duration Time 0 hours 3 minutes 7 seconds Findings: The examined esophagus was normal. Patchy mildly erythematous mucosa without bleeding was found in the gastric body and in the gastric antrum. Biopsies were taken with a cold forceps for histology. Verification of patient identification for the specimen was done. Biopsies were taken with a cold forceps for Helicobacter pylori testing. Verification of patient identification for the specimen was done. Estimated blood loss was minimal. Patchy mildly erythematous mucosa without active bleeding and with no stigmata of bleeding was found in the first portion of the duodenum and in the second portion of the duodenum. Biopsies were taken with a cold forceps for histology. Verification of patient identification for the specimen was done. Estimated blood loss was minimal. Impression: - Normal esophagus. - Erythematous mucosa in the gastric body and antrum. Biopsied. - Erythematous duodenopathy. Biopsied. Recommendation: - Discharge patient to home. - Resume previous diet. - Continue present medications. - Await pathology results. Procedure Code(s): --- Professional --- 00871, Esophagogastroduodenos copy, flexible, transoral; with biopsy, single or multiple CPT copyright 2021 [employer]. All rights reserved. The codes documented in this report are preliminary and upon field crop farm worker review may be revised to meet current compliance requirements. Carson Alcantar DO 06/19/2024 11:36:11 AM This report has been signed electronically. Number of Addenda: 0 Note Initiated On: 06/19/2024 11:05 AM 06/19/24 1136 Date Carson Cool Signature: Date (if indicated) CC: Dr. Clifton Hung MD; Carson Alcantar DO Date Dictated: 06/19/241104 Date Transcribed: Color Checker Roving Or Yarn: BETTY Signed Normal [facility] H Pylori (initial)on H Pylori (initial) -- ---- Patient Age/Sex Location Account Attending Physician ---- DOM AVILA 68/F EN [id number] Carson Alcatnar DO ---- Specimen: [id number] Received: 06/19/24-1553 Status: SOL Roland Num: [id number] Spec Type: IMMUNO Subm Dr: Carson Alcantar DO PHYSICIAN INSTITUTION [facility] [address] [place], [place] [address] SPECIMEN INFORMATION: Tissue Source: B- Gastric body biopsy Clinical Info: Elevated CA 19-9 level, diarrhea Specimen Number: [id number] CPT code: 61989 METHODOLOGY: Deparaffinized sections of prefer/formalin-fixed tissue or PAP/DQ stained slides are incubated with monoclonal/polyclonal antibodies/oligonucleo tide probes. Localization is made via biotin free immunoperoxidase method. Appropriate controls are performed and reacted as expected. Results on target cell population are indicated in the following table: RESULTS: ANTIBODY / CLONE RESULT Block B H Pylori (polyclonal) negative These tests were developed and their performance characteristics determined by [facility]. They may not have been cleared or approved by the U.S. Food and Drug Administration. The FDA has determined that such clearance or approval is not necessary. The above immunohistochemical/du alISH markers are ordered and reviewed by the Pathologist. INTERPRETATION: B. Gastric body, biopsy: Negative for Helicobacter pylori organisms. 06/30/2024 Signed (signature on file) Dr. Dexter Orta MD 06/30/24 1436 ---- Normal [facility] Comment on above: Performed By: #### P H.PYLORI #### [facility] [address] [place], [place], [address] MR/POSTOP.Jimena 06-19-2024 MR/[address] Medical Records Department [address] [place] [address] Anesthesia Postop Eval I 06/19/24 1141 MR#: [id number] Acct: [id number] Name: DOM AVILA Rep #: [id number] : 1955 68 From: Erasto Medina PCP: Dr. Clifton Hung MD Status:[facility] Y Race: C Location: [place] [address] Anesthesia: Postop Eval I Current Vital Signs Temperature: 97.8 F Pulse Rate: 60 Blood Pressure: 85/54 Respiratory Rate: 16 Pulse Ox: 98 Oxygen Delivery Method: Room Air Assessment Airway patent: Yes Spontaneous unlabored respirations: Yes Mental status: Asleep nausea: No Vomiting: No Anesthesia Complication: No Fluid Hydration Crystalloid volume administer (ml): 700 Total IV fluid infused: 700 Progress Note Anesthesia document: Postop Eval 1 completed: Yes 06/19/24 1142 Date Erasto Hoyt Signature: Date CC: Signed Normal [facility] MR/BRHPSGVS7an 06-19-2024 [facility] Medical Records Department [address] [place] [address] Anesthesia Postop Eval II 06/19/24 1336 MR#: [id number] Acct: [id number] Name: DOM AVILA Rep #: [id number] : 1955 68 From: Pee Lomeli MD PCP: Dr. Clifton Hung MD Status:[facility] Y Race: C Location: EN Anesthesia Postop Eval I Sum Postop Eval Completion status Anesthesia document: Postop Eval 1 completed: Yes Anesthesia Postop Eval I Summary Anesthesia Postop Eval I Summary: Anesthesia Postop Eval I: Assessment Summary Airway patent Yes 06/19/24 11:42 [email or web address] Spontaneous unlabored Yes 06/19/24 11:42 [email or web address] respirations Mental status Asleep 06/19/24 11:42 [email or web address] nausea No 06/19/24 11:42 [email or web address] Vomiting No 06/19/24 11:42 [email or web address] Anesthesia Postop Eval I: Fluid Summary Crystalloid volume administer 700 06/19/24 11:42 [email or web address] (ml) Colloids volume administered ( ml) Blood Product volume administered (ml) Total IV fluid infused 700 06/19/24 11:42 [email or web address] Anesthesia Postop Eval I: Summary Notes Anesthesia Complication No 06/19/24 11:42 [email or web address] Anesthesia Complication Comment: Post-operative progress note Anesthesia: Postop Eval II Evaluation Mental status: Awake and Calm Pain Level: 0 nausea: No Vomiting: No Complications Anesthesia Complication: No 06/19/24 1336 Date Pee Hoyt Signature: Date CC: Signed Normal [facility] Surgery Specimen Level Rikki 06-19-2024 Surgery Specimen Level IV ---- Patient Age/Sex Location Account Attending Physician ---- DOM AVILA 68/F EN [id number] Carson Alcantar DO ---- Specimen: [id number] Received: 06/19/24 Status: SOL Roland Num: [id number] Spec Type: COLON BX Subm Dr: Carson Alcantar, DO HEADER OPERATION: Colonoscopy with biopsy, EGD with biopsy PRE-OP DIAGNOSIS: Elevated CA19-9 level, diarrhea TISSUE SUBMITTED: A- Duodenum biopsy, B- Gastric body biopsy, C- Terminal ileum biopsy, D- Random colon biopsy ---- MICROSCOPIC DIAGNOSIS A. Duodenum, biopsy: Fragments of small intestinal mucosa, no pathologic diagnosis. B. Gastric body, biopsy: Mild gastritis. See microscopic description and comment. C. Terminal ileum, biopsy: Fragments of small intestinal mucosa, no pathologic diagnosis. D. Colon, random biopsy: Fragments of colonic mucosa, no pathologic diagnosis. JESSICA/ 06/21/2024 COMMENT B. The results of immunohistochemistry for Helicobacter pylori will be reported separately ([id number]). MICROSCOPIC DESCRIPTION Slides are reviewed. B. The specimen shows fragments of gastric mucosa with chronic inflammatory cell infiltrates in the lamina propria consisting of lymphocytes and plasma cells, consistent with mild chronic gastritis. GROSS DESCRIPTION A. Received in fixative is one container labeled with the patient's name and designated Duodenum biopsy. The specimen consists of multiple irregular fragments of light jaramillo soft tissue that in aggregate measure 1.5 x 0.3 x 0.1 cm. The specimen is totally submitted in one cassette. B. Received in fixative is one container labeled with the patient's name and designated Gastric body biopsy. The specimen consists of two irregular fragments of light jaramillo soft tissue that in aggregate measure 1.0 x 0.3 x 0.1 cm. The specimen is totally submitted in one cassette. C. Received in fixative is one container labeled with the patient's name and designated Terminal ileum biopsy. The specimen consists of multiple irregular fragments of light jaramillo soft tissue that in aggregate measure 0.8 x 0.5 x 0.1 cm. The specimen is totally submitted ---- Patient Age/Sex Location Account Attending Physician ---- DOM AVILA 68/F EN [id number] Carson Alcantar DO ---- in one cassette. D. Received in fixative is one container labeled with the patient's name and designated Random colon biopsy. The specimen consists of multiple irregular fragments of light jaramillo soft tissue that in aggregate measure 2.5 x 0.6 x 0.1 cm. The specimen is totally submitted in one cassette. Domingo 06/20/2024 TC:3 CPT:05474b7 ---- Patient Age/Sex Location Account Attending Physician ---- DOM AVILA 68/F EN [id number] Carson Alcantar DO ---- Signed (signature on file) Dr. Dexter Orta MD 06/21/24 1120 ---- Normal [facility] Comment on above: Performed By: #### P SUIV ####[facility] [address] [place], [address] M7400.3302on 06-15-2024 M7400.3302 __ TESTING PERFORMED AT [employer]. ORIGINAL REPORT ON FILE IN LAB CONTAINS ADDITIONAL TEST SITE INFORMATION. Giardia Lamblia EIA NEGATIVE Normal [facility] Comment on above: Performed By: #### M 100.0605, M7400.3302, L7000.0300, L7000.0700, M600.5000, L7000.0750 ####[facility] [address], [address] Ova and Parasites 8623on OP OVA AND PARASITES EXAM, ROUTINE These results were obtained using wet preparation(s) and trichrome stained smear. This test does not include testing for Crytosporidium parvum, Cyclospora, or Microsporidia. O+P Spec Micro One negative specimen does not rule out the possibility of a parasitic infection. TESTING PERFORMED AT [facility]. ORIGINAL REPORT ON FILE IN LAB CONTAINS ADDITIONAL TEST SITE INFORMATION. Ova/Parasite Exam NO OVA, CYSTS, OR PARASITES FOUND. Normal [facility] Comment on above: Performed By: #### M 100.0605, M7400.3302, L7000.0300, L7000.0700, M600.5000, L7000.0750 ####[facility] [address], [address] Calprotectin, Stoolon [address] 111 ug/g Normal 0-120 [facility] Comment on above: Order Comment: Test( s) 037294-Qqhc, Neutral; 924081-Dxfi, Total was developed and its performance characteristics determined by [facility]. It has not been cleared or approved by the Food and Drug Administration. Result Comment: Conc entration Interpretation Follow-Up < 5 - 50 ug/g Normal None >50 -120 ug/g Borderline Re-evaluate in 4-6 weeks >120 ug/g Abnormal Repeat as clinically indicated Performed at: [facility] [address] [id number] Log Chain Worker: Timoteo Berumen PhD, Phone: [phone] Performed at: [facility] [address] [id number] Log Chain Worker: Benson Osei MD, Phone: [phone] Performed By: #### M 100.0605, M7400.3302, L7000.0300, L7000.0700, M600.5000, L7000.0750 #### [facility] [address] [place], [place], [id number] Fecal Fat, Qualitativeon FATS, NEUTRAL Normal Normal . [facility] Comment on above: Order Comment: Test( s) 892252-Xvdz, Neutral; [id number]-Ipsj, Total was developed and its performance characteristics determined by [facility]. It has not been cleared or approved by the Food and Drug Administration. Result Comment: Norm al (<60 Droplets/HPF) Performed By: #### M 100.0605, M7400.3302, L7000.0300, L7000.0700, M600.5000, L7000.0750 #### [facility] [address] [place], [address] FATS, TOTAL Normal Normal . [facility] Comment on above: Order Comment: Test( s) 242965-Yhft, Neutral; 523348-Stmu, Total was developed and its performance characteristics determined by [facility]. It has not been cleared or approved by the Food and Drug Administration. Result Comment: Norm al (<100 Droplets/HPF) Performed By: #### M 100.0605, M7400.3302, L7000.0300, L7000.0700, M600.5000, L7000.0750 #### [facility] [address] [place], [address] L7000.0750on 06-08-2024 P ELASTASE,FECA > 800 Normal >200 [facility] Comment on above: Result Comment: Resu lt Units: ug Elast./g Severe Pancreatic Insufficiency: <100 Moderate Pancreatic Insufficiency: 100 - 200 Normal: >200 Performed at: - [address] [id number] Log Chain Worker: Benson Osei MD, Phone: [phone] Performed By: #### M 100.0605, M7400.3302, L7000.0300, L7000.0700, M600.5000, L7000.0750 #### [facility] [address] [place], [address] Stool Lactoferrin/WBCon 05-10 WBCST Normal Reference Ran ge = Negative Fecal WBC Lactoferrin Negative: No Fecal WBC Lactoferrin present Normal [facility] Comment on above: Performed By: #### M 100.0605, M7400.3302, L7000.0300, L7000.0700, M600.5000, L7000.0750 #### [facility] [address] [place], [address] Amylaseon 06-05-2024 SIMA 52 U/L Normal 25-115 [facility] Comment on above: Performed By: #### L 3300.1000, L501.6710, L3100.3425, L2100.0000, L3100.5017, L101.9900, L3300.1050, L3200.1100, L100.0100, L501.2450, L501.2400, L500.4050, L3200.0500, L509.6000 ####[facility] [address] [place], [address] CBC W/Diff, Automatedon 07-2 Absolute Lymph 1.78 X10 3/uL Normal 0.83-4.51 [facility] Comment on above: Performed By: #### L 3300.1000, L501.6710, L3100.3425, L2100.0000, L3100.5017, L101.9900, L3300.1050, L3200.1100, L100.0100, L501.2450, L501.2400, L500.4050, L3200.0500, L509.6000 ####[facility] [address] [place], [address] Absolute Neut 2.5 X10 3/uL Normal 2.0-7.7 [facility] Comment on above: Performed By: #### L 3300.1000, L501.6710, L3100.3425, L2100.0000, L3100.5017, L101.9900, L3300.1050, L3200.1100, L100.0100, L501.2450, L501.2400, L500.4050, L3200.0500, L509.6000 ####[facility] [address] [place], [address] Basophils/100 WBC (Bld) 0.4 % Normal 0-1 [facility] Comment on above: Performed By: #### L 3300.1000, L501.6710, L3100.3425, L2100.0000, L3100.5017, L101.9900, L3300.1050, L3200.1100, L100.0100, L501.2450, L501.2400, L500.4050, L3200.0500, L509.6000 ####[facility] [address] [facility] [place], [address] Eosinophils/100 WBC (Bld) 0.8 % Normal 0-5 [facility] Comment on above: Performed By: #### L 3300.1000, L501.6710, L3100.3425, L2100.0000, L3100.5017, L101.9900, L3300.1050, L3200.1100, L100.0100, L501.2450, L501.2400, L500.4050, L3200.0500, L509.6000 ####[facility] [address] [place], [address] Erythrocyte distribution width (RBC) [Ratio] 13.6 % Normal 11.6-14.6 [facility] Comment on above: Performed By: #### L 3300.1000, L501.6710, L3100.3425, L2100.0000, L3100.5017, L101.9900, L3300.1050, L3200.1100, L100.0100, L501.2450, L501.2400, L500.4050, L3200.0500, L509.6000 ####[facility] [address] [place], [address] Hematocrit (Bld) [Volume fraction] 34.7 % Low 37-47 [facility] Comment on above: Performed By: #### L 3300.1000, L501.6710, L3100.3425, L2100.0000, L3100.5017, L101.9900, L3300.1050, L3200.1100, L100.0100, L501.2450, L501.2400, L500.4050, L3200.0500, L509.6000 ####[facility] [address] [place], [address] Hemoglobin (Bld) [Mass/Vol] 11.2 g/dL Low 12.0-15.0 [facility] Comment on above: Performed By: #### L 3300.1000, L501.6710, L3100.3425, L2100.0000, L3100.5017, L101.9900, L3300.1050, L3200.1100, L100.0100, L501.2450, L501.2400, L500.4050, L3200.0500, L509.6000 ####[facility] [address] [place], [address] IG% 0.400 Normal 0.0-0.9 [facility] Comment on above: Result Comment: IG% - Immature Granulocytes (promyelocytes, myelocytes and metamyelocytes) > 1% indicates that a LEFT SHIFT is Present. Performed By: #### L 3300.1000, L501.6710, L3100.3425, L2100.0000, L3100.5017, L101.9900, L3300.1050, L3200.1100, L100.0100, L501.2450, L501.2400, L500.4050, L3200.0500, L509.6000 ####[facility] [address] [place], [address] Lymphocytes/100 WBC (Bld) 37.6 % Normal 19-41 [facility] Comment on above: Performed By: #### L 3300.1000, L501.6710, L3100.3425, L2100.0000, L3100.5017, L101.9900, L3300.1050, L3200.1100, L100.0100, L501.2450, L501.2400, L500.4050, L3200.0500, L509.6000 ####[facility] [address] [place], [address] MCH (RBC) [Entitic mass] 29.9 pg Normal 27.0-32.0 [facility] Comment on above: Performed By: #### L 3300.1000, L501.6710, L3100.3425, L2100.0000, L3100.5017, L101.9900, L3300.1050, L3200.1100, L100.0100, L501.2450, L501.2400, L500.4050, L3200.0500, L509.6000 ####[facility] [address] [place], [address] MCHC (RBC) [Mass/Vol] 32.3 g/dL Normal 32-[address] [facility] Comment on above: Performed By: #### L 3300.1000, L501.6710, L3100.3425, L2100.0000, L3100.5017, L101.9900, L3300.1050, L3200.1100, L100.0100, L501.2450, L501.2400, L500.4050, L3200.0500, L509.6000 ####[facility] [address] [place], [address] MCV (RBC) [Entitic vol] 92.5 fL Normal 81-99 [facility] Comment on above: Performed By: #### L 3300.1000, L501.6710, L3100.3425, L2100.0000, L3100.5017, L101.9900, L3300.1050, L3200.1100, L100.0100, L501.2450, L501.2400, L500.4050, L3200.0500, L509.6000 ####[facility] [address] [place], [address] Monocytes/100 WBC (Bld) 8.0 % Normal 0-10 [facility] Comment on above: Performed By: #### L 3300.1000, L501.6710, L3100.3425, L2100.0000, L3100.5017, L101.9900, L3300.1050, L3200.1100, L100.0100, L501.2450, L501.2400, L500.4050, L3200.0500, L509.6000 ####[facility] [address] [place], [address] Neutrophils/100 WBC (Bld) 52.8 % Normal 47-70 [facility] Comment on above: Performed By: #### L 3300.1000, L501.6710, L3100.3425, L2100.0000, L3100.5017, L101.9900, L3300.1050, L3200.1100, L100.0100, L501.2450, L501.2400, L500.4050, L3200.0500, L509.6000 ####[facility] [address] [place], [place], [phone] Nucleated RBC (Bld) [#/Vol] 0 10*3/uL Normal 0-5 [facility] Comment on above: Performed By: #### L 3300.1000, L501.6710, L3100.3425, L2100.0000, L3100.5017, L101.9900, L3300.1050, L3200.1100, L100.0100, L501.2450, L501.2400, L500.4050, L3200.0500, L509.6000 ####[facility] [address] [place], [place], [phone] Platelet mean volume (Bld) [Entitic vol] 10.1 fL Normal 6.2-12.0 [facility] Comment on above: Performed By: #### L 3300.1000, L501.6710, L3100.3425, L2100.0000, L3100.5017, L101.9900, L3300.1050, L3200.1100, L100.0100, L501.2450, L501.2400, L500.4050, L3200.0500, L509.6000 ####[facility] [address] [place], [place], [phone] Platelets (Bld) [#/Vol] 186 10*3/uL Normal 150-450 [facility] Comment on above: Performed By: #### L 3300.1000, L501.6710, L3100.3425, L2100.0000, L3100.5017, L101.9900, L3300.1050, L3200.1100, L100.0100, L501.2450, L501.2400, L500.4050, L3200.0500, L509.6000 ####[facility] [address] [place], [address] RBC (Bld) [#/Vol] 3.75 10*6/uL Low 4.2-5.4 [facility] Comment on above: Performed By: #### L 3300.1000, L501.6710, L3100.3425, L2100.0000, L3100.5017, L101.9900, L3300.1050, L3200.1100, L100.0100, L501.2450, L501.2400, L500.4050, L3200.0500, L509.6000 ####[facility] [address] [place], [address] RDW SD 46.4 fl High 35.1-43.9 [facility] Comment on above: Performed By: #### L 3300.1000, L501.6710, L3100.3425, L2100.0000, L3100.5017, L101.9900, L3300.1050, L3200.1100, L100.0100, L501.2450, L501.2400, L500.4050, L3200.0500, L509.6000 ####[facility] [address] [place], [address] WBC (Bld) [#/Vol] 4.7 10*3/uL Normal 4.4-11.0 [facility] Comment on above: Performed By: #### L 3300.1000, L501.6710, L3100.3425, L2100.0000, L3100.5017, L101.9900, L3300.1050, L3200.1100, L100.0100, L501.2450, L501.2400, L500.4050, L3200.0500, L509.6000 ####[facility] [address] [place], [address] CORTISOL SERUMon 06-05-2024 CORTISOL 14.80 ug/dL Normal 3.44-22.45 [facility] Comment on above: Result Comment: Adul t (AM) 5.27 - 22.45 ug/dL Adult (PM) 3.44 - 16.76 ug/dL Please note revised CORTISOL reference range effective 2020. Performed By: #### L 3300.1000, L501.6710, L3100.3425, L2100.0000, L3100.5017, L101.9900, L3300.1050, L3200.1100, L100.0100, L501.2450, L501.2400, L500.4050, L3200.0500, L509.6000 ####[facility] [address] [place], [place], [address] CRPon 06-05-2024 C-REACTIVE PROT < 2.90 Normal 0.0-3.0 [facility] Comment on above: Result Comment: C-Re active Protein (CRP) provides useful information for the diagnosis, therapy and monitoring of inflammatory processes and associated diseases. For the evaluation of Relative Risk for Cardiovascular Disease, a High Sensitivity CRP (HSCRP) should be ordered. Performed By: #### L 3300.1000, L501.6710, L3100.3425, L2100.0000, L3100.5017, L101.9900, L3300.1050, L3200.1100, L100.0100, L501.2450, L501.2400, L500.4050, L3200.0500, L509.6000 ####[facility] [address] [place], [place], [address] Comprehensive Metabolic Prof ilon 06-05-2024 Albumin [Mass/Vol] 3.1 g/dL Low 3.2-5.0 [facility] Comment on above: Performed By: #### L 3300.1000, L501.6710, L3100.3425, L2100.0000, L3100.5017, L101.9900, L3300.1050, L3200.1100, L100.0100, L501.2450, L501.2400, L500.4050, L3200.0500, L509.6000 ####[facility] [address] [place], [place], [phone] Albumin/Globulin [Mass ratio] 0.9 {ratio} Normal 0.9-2.4 [facility] Comment on above: Performed By: #### L 3300.1000, L501.6710, L3100.3425, L2100.0000, L3100.5017, L101.9900, L3300.1050, L3200.1100, L100.0100, L501.2450, L501.2400, L500.4050, L3200.0500, L509.6000 ####[facility] [address] [place], [place], [phone] ALK P 37 U/L Low 45-117 [facility] Comment on above: Performed By: #### L 3300.1000, L501.6710, L3100.3425, L2100.0000, L3100.5017, L101.9900, L3300.1050, L3200.1100, L100.0100, L501.2450, L501.2400, L500.4050, L3200.0500, L509.6000 ####[facility] [address] [place], [place], [phone] ALT [Catalytic activity/Vol] 15 U/L Normal 13-56 [facility] Comment on above: Performed By: #### L 3300.1000, L501.6710, L3100.3425, L2100.0000, L3100.5017, L101.9900, L3300.1050, L3200.1100, L100.0100, L501.2450, L501.2400, L500.4050, L3200.0500, L509.6000 ####[facility] [address] [place], [address] AST [Catalytic activity/Vol] 16 U/L Normal 15-37 [facility] Comment on above: Performed By: #### L 3300.1000, L501.6710, L3100.3425, L2100.0000, L3100.5017, L101.9900, L3300.1050, L3200.1100, L100.0100, L501.2450, L501.2400, L500.4050, L3200.0500, L509.6000 ####[facility] [address] [place], [place], [phone] Bilirubin [Mass/Vol] 0.20 mg/dL Normal 0.20-1.00 [facility] Comment on above: Result Comment: For patients on eltrombopag therapy, use of Dimension [place] TBIL is not recommended. Performed By: #### L 3300.1000, L501.6710, L3100.3425, L2100.0000, L3100.5017, L101.9900, L3300.1050, L3200.1100, L100.0100, L501.2450, L501.2400, L500.4050, L3200.0500, L509.6000 ####[facility] [address] [place], [place], [phone] BUN/CRE 18.3 RATIO Normal 10-20 [facility] Comment on above: Performed By: #### L 3300.1000, L501.6710, L3100.3425, L2100.0000, L3100.5017, L101.9900, L3300.1050, L3200.1100, L100.0100, L501.2450, L501.2400, L500.4050, L3200.0500, L509.6000 ####[facility] [address] [place], [place], [phone] CA,Total 8.3 mg/dL Low 8.5-10.1 [facility] Comment on above: Performed By: #### L 3300.1000, L501.6710, L3100.3425, L2100.0000, L3100.5017, L101.9900, L3300.1050, L3200.1100, L100.0100, L501.2450, L501.2400, L500.4050, L3200.0500, L509.6000 ####[facility] [address] [place], [address] Chloride [Moles/Vol] 108 mmol/L High 98-107 [facility] Comment on above: Performed By: #### L 3300.1000, L501.6710, L3100.3425, L2100.0000, L3100.5017, L101.9900, L3300.1050, L3200.1100, L100.0100, L501.2450, L501.2400, L500.4050, L3200.0500, L509.6000 ####[facility] [address] [place], [address] CO2 [Moles/Vol] 29.0 mmol/L Normal 21.0-32.0 [facility] Comment on above: Performed By: #### L 3300.1000, L501.6710, L3100.3425, L2100.0000, L3100.5017, L101.9900, L3300.1050, L3200.1100, L100.0100, L501.2450, L501.2400, L500.4050, L3200.0500, L509.6000 ####[facility] [address] [place], [address] Creatinine [Mass/Vol] 0.82 mg/dL Normal 0.55-1.[address] [facility] Comment on above: Result Comment: The validity of the calculated GFR GFRAA in patients over 70 years has not been determined. Clinical correlation is essential. Performed By: #### L 3300.1000, L501.6710, L3100.3425, L2100.0000, L3100.5017, L101.9900, L3300.1050, L3200.1100, L100.0100, L501.2450, L501.2400, L500.4050, L3200.0500, L509.6000 ####[facility] [address] [place], [address] EST GFR - AA 89 mL/min Normal >60 [facility] Comment on above: Result Comment: Afri can Georgian GFR Calc Performed By: #### L 3300.1000, L501.6710, L3100.3425, L2100.0000, L3100.5017, L101.9900, L3300.1050, L3200.1100, L100.0100, L501.2450, L501.2400, L500.4050, L3200.0500, L509.6000 ####[facility] [address] [place], [place], [phone] GAP 3 Low 5-15 [facility] Comment on above: Performed By: #### L 3300.1000, L501.6710, L3100.3425, L2100.0000, L3100.5017, L101.9900, L3300.1050, L3200.1100, L100.0100, L501.2450, L501.2400, L500.4050, L3200.0500, L509.6000 ####[facility] [address] [place], [address] GFR/1.73 sq M.predicted among non-blacks MDRD (S/P/Bld) [Vol rate/Area] 74 mL/min/{1.73_m2} Normal >60 [facility] Comment on above: Result Comment: Non- GFR Calc Performed By: #### L 3300.1000, L501.6710, L3100.3425, L2100.0000, L3100.5017, L101.9900, L3300.1050, L3200.1100, L100.0100, L501.2450, L501.2400, L500.4050, L3200.0500, L509.6000 ####[facility] [address] [place], [place], [phone] Globulin (S) [Mass/Vol] 3.4 g/dL Normal 2.2-4.2 [facility] Comment on above: Performed By: #### L 3300.1000, L501.6710, L3100.3425, L2100.0000, L3100.5017, L101.9900, L3300.1050, L3200.1100, L100.0100, L501.2450, L501.2400, L500.4050, L3200.0500, L509.6000 ####[facility] [address] [place], [address] Glucose [Mass/Vol] 158 mg/dL High 74-106 [facility] Comment on above: Result Comment: Fast ing Glucose result greater than or equal to 126 mg/dL suggests DIABETES MELLITUS per A.D.A. criteria. Performed By: #### L 3300.1000, L501.6710, L3100.3425, L2100.0000, L3100.5017, L101.9900, L3300.1050, L3200.1100, L100.0100, L501.2450, L501.2400, L500.4050, L3200.0500, L509.6000 ####[facility] [address] [place], [address] Potassium [Moles/Vol] 3.3 mmol/L Low 3.5-5.[address] [facility] Comment on above: Performed By: #### L 3300.1000, L501.6710, L3100.3425, L2100.0000, L3100.5017, L101.9900, L3300.1050, L3200.1100, L100.0100, L501.2450, L501.2400, L500.4050, L3200.0500, L509.6000 ####[facility] [address] [place], [address] Sodium [Moles/Vol] 140 mmol/L Normal 136-145 [facility] Comment on above: Performed By: #### L 3300.1000, L501.6710, L3100.3425, L2100.0000, L3100.5017, L101.9900, L3300.1050, L3200.1100, L100.0100, L501.2450, L501.2400, L500.4050, L3200.0500, L509.6000 ####[facility] [address] [place], [place], [phone] T PROT 6.5 g/dL Normal 6.4-8.2 [facility] Comment on above: Performed By: #### L 3300.1000, L501.6710, L3100.3425, L2100.0000, L3100.5017, L101.9900, L3300.1050, L3200.1100, L100.0100, L501.2450, L501.2400, L500.4050, L3200.0500, L509.6000 ####[facility] [address] [place], [place], [phone] Urea nitrogen [Mass/Vol] 15 mg/dL Normal 7-18 [facility] Comment on above: Performed By: #### L 3300.1000, L501.6710, L3100.3425, L2100.0000, L3100.5017, L101.9900, L3300.1050, L3200.1100, L100.0100, L501.2450, L501.2400, L500.4050, L3200.0500, L509.6000 ####[facility] [address] [place], [place], [phone] Erythrocyte Sed Rateon 06-05 SED RATE < 1 Normal 0-30 [facility] Comment on above: Performed By: #### L 3300.1000, L501.6710, L3100.3425, L2100.0000, L3100.5017, L101.9900, L3300.1050, L3200.1100, L100.0100, L501.2450, L501.2400, L500.4050, L3200.0500, L509.6000 ####[facility] [address] [place], [place], [phone] Gastroenterology Visit Repor ton 06-05-2024 Gastroenterology Visit Report [facility] [address] [place] [address] OFFICE VISIT Date of Service: 06/05/24 MR#: [id number] Acct: [id number] Name: DOM AVILA Rep #: [id number] : 1955 Provider: Carson Alcantar DO Age/Sex: 68/F Location: [facility] [place] Status: Signed Intake Vital Signs 09/11/23 14:30 04/21/24 13:31 Height 5 ft 3 in 5 ft 3 in Intake Visit Reasons: 6 MO FU Allergies lovastatin Allergy (Intermediate, Verified 04/21/24 13:37) Other rosuvastatin (From Crestor) Allergy (Intermediate, Verified 04/21/24 13:37) Other ticagrelor (From Brilinta) Allergy (Intermediate, Verified 04/21/24 13:37) Shortness of breath atorvastatin Allergy (Unknown, Verified 04/21/24 13:37) myalgia hydrocodone Allergy (Verified 04/21/24 13:37) Hives cephalexin monohydrate (From Keflex) Adverse Reaction (Verified 04/21/24 13:37) Other pravastatin Adverse Reaction (Verified 04/21/24 13:37) myalgias Medications ???Medication ???Instructions ???Recorded ???Confirmed ???Type L.acidoph, paracasei,B. lactis 10 1 ea PO QHS 09/23/16 06/05/24 History billion cell capsule montelukast 10 mg tablet 10 mg PO QPM 08/22/18 06/05/24 History coenzyme Q10 100 mg capsule 100 mg PO DAILY 08/23/19 06/05/24 History metformin 500 mg 24 hr 1,000 mg PO BID 11/24/21 06/05/24 History tablet,extended release (gastric retention) tamoxifen 20 mg tablet 20 mg PO DAILY 11/24/21 06/05/24 History doxycycline monohydrate 50 mg 50 mg PO DAILY PRN Skin 05/28/22 06/05/24 History capsule clobetasol 0.05 % topical gel 1 applic topical DAILY PRN Skin 09/03/22 06/05/24 History Cleansing omeprazole 40 mg capsule,delayed 40 mg PO DAILY 11/30/22 06/05/24 History release ewqtdz-ovuierhi-slwfiw e See Rx Instructions PO .COMPLEX 03/04/23 06/05/24 Rx 36,000-114,000-180,000 unit #56 caps capsule,delay rel (Creon) Handicap Placard #1 ea 08/30/23 06/05/24 Rx calcium citrate 315 mg 2 tab PO DAILY 08/30/23 06/05/24 History calcium-vitamin D3 6.25 mcg (250 unit) tablet ezetimibe 10 mg tablet (Zetia) 10 mg PO DAILY 08/30/23 06/05/24 History ketoconazole 2 % shampoo 1 applic topical QODAY 08/30/23 06/05/24 History lactulose 10 gram/15 mL oral 15 ml PO DAILY PRN constipation 11/03/23 06/05/24 Rx solution #473 mL metoprolol tartrate 25 mg tablet 25 mg PO BID #180 tabs 01/27/24 06/05/24 Rx nitroglycerin 0.4 mg sublingual 0.4 mg sublingual Q5M PRN Chest 03/03/24 06/05/24 Rx tablet Pain #25 tabs ammonium lactate 12 % lotion topical 04/21/24 06/05/24 History cholecalciferol (vitamin D3) 125 125 mcg PO DAILY 04/21/24 06/05/24 History mcg (5,000 unit) tablet estradiol 0.01% (0.1 mg/gram) vaginal 04/21/24 06/05/24 History vaginal cream lisinopril 40 mg tablet 40 mg PO DAILY #90 tabs 04/21/24 06/05/24 Rx pioglitazone 15 mg tablet 15 mg PO QDAY 04/21/24 06/05/24 History dicyclomine 20 mg tablet 20 mg PO TID #90 tabs 06/02/24 06/05/24 Rx sucralfate 1 gram tablet (Carafate) 1 g PO QAC #90 tabs 06/02/24 06/05/24 Rx Have you fallen in the past year?: No PFSH Medical History COVID-19 ( 10/2022) Loss of hearing Anxiety Discoloration of skin Injury of head and neck Dietary restriction Hx of gastritis Gastric reflux Shortness of breath on exertion Leg cramps History of pain when walking Heart palpitations Cardiology follow-up encounter Epigastric pain Vitamin D deficiency Rosacea Psoriasis IBS (irritable bowel syndrome) History of TIA (transient ischemic attack) Colon polyp Nausea Breast cancer, left Wears glasses Arthritis Easy bruising Excessive bleeding Former smoker CPAP (continuous positive airway pressure) dependence Hx of cardiovascular stress test ( 09/13/18) Hx of echocardiogram ( 06/30/17) Mixed hyperlipidemia Presence of stent in coronary artery ( 01/05/17) Menieres disease Encounter for long-term (current) use of other medications 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 Cardiovascular stress test abnormal Chest pain Surgical History History of bilateral cataract extraction History of detached retina repair ( 04/2023) Hx of release of tendon ( 01/13/23) History of bunionectomy of left great toe History of lumpectomy of left breast Ductal carcinoma in situ (DCIS) of left breast History of cardiac catheterization ( 10/12/18) History of coronary artery stent placement ( 12/30/16) Status post trigger finger release History of carpal tunnel release of both wrists Hx of foot surgery Status post lumbar spine operative procedure for decompression of spinal cord Status post excision of lipoma ( 11/2018) History of section History of parathyroidectomy (more content not included)... Normal [facility] Lipaseon 06-05-2024 Lipase [Catalytic activity/Vol] 109 U/L High 13-75 [facility] Comment on above: Result Comment: Rom mendosa note: LIPASE revised reference range effective 23. New Lipase methodology. Expected to produce lower values than the previous assay method. NEW Reference Range: 13 - 75 U/L Performed By: #### L 3300.1000, L501.6710, L3100.3425, L2100.0000, L3100.5017, L101.9900, L3300.1050, L3200.1100, L100.0100, L501.2450, L501.2400, L500.4050, L3200.0500, L509.6000 ####[facility] [id number], [address] CNOVon 05-23-2024 CNOV Office Visit (URUN) DOM AVILA ([id number]) 1955 F Date Time Provider Department 05/23/24 11:40 AM ORI LANDIN During your visit today, we recorded the following information about you: Pulse Blood pressure 72/minute 137/85 Ori Landin DO 05/23/2024 4:45 PM Addendum [facility] ESTABLISHED PATIENT NOTE/HISTORY AND PHYSICAL PATIENT: Dom Crowder Austin (68 year old) PCP: Clifton Hung MD DATE OF SERVICE: 05/23/2024 SUBJECTIVE: CHIEF COMPLAINT: Follow Up (No new complaints today. Denies urinary pain. Pt states she does feel like she has period cramps. Pt states she does have a history of constipation) HISTORY OF PRESENT ILLNESS: The patient was last seen by Ori Lord DO on 04/25/24 . Prior notes were reviewed. Patient returns today for follow up . In interim doing ok , has no new complaints and no change in urinary sx. Is having GSM and reports dyspareunia. 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 (HCC) (01/09/2017), Garibay's cyst of knee, left (03/02/2018), Breast neoplasm, Tis (DCIS), 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), CAD (coronary artery disease), Cataract, Colon polyp (2011), Controlled type 2 diabetes mellitus without complication, without long-term current use of insulin ([facility]) (10/22/2016), De Quervain's tenosynovitis, left (07/31/2019), Diabetic eye exam ([facility]) (01/16/2016), 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), 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), Encounter for Medicare annual wellness exam (04/08/2023), Essential hypertension (01/16/2016), Female pattern hair loss, Foot callus (05/26/2021), History of colon polyps, History of depression, History of hyperparathyroidism, History of transient ischemic attack (TIA) (10/29/2017), Irritable bowel syndrome with diarrhea (05/26/2021), Living will on file at physician's office (04/08/2023), Meniere disease, right (10/29/2017), Mixed hyperlipidemia (05/31/2009), Narcolepsy without cataplexy (01/16/2016), Obstructive sleep apnea on CPAP, Pancreatic insufficiency (04/08/2023), Psoriasis, RLS (restless legs syndrome) (02/22/2023), Rosacea, S/P angioplasty with stent (01/09/2017), Scalp itch, Seasonal allergies, Vitamin D deficiency (2012), and Well adult exam (01/16/2016). Past Surgical History: -Patient has a past surgical history that includes cholecystectomy (2004); past surgical history of (2004); total abdominal hysterect w/wo rmvl tube ovary (1995); past surgical history of; heart catheterization (2004); past surgical history of (10/2006); delivery only; low back disk surgery (2009); bunionectomy, lapidus-type (2009); colonoscopy AND polypectomy (10/12, 10/13); colonoscopy (08/07/2015); past surgical history of (2014); heart catheterization (01/04/2017); 2d echo (exep) (06/30/2017); stent placement (01/06/2017); stress test (04/20/2017); past surgical history of (Right, 10/2016); heart surgery hx (12/2016); colonoscopy flx dx w/collj spec when pfrmd (08/09/2018); esophagogastroduodenos copy transoral diagnostic (08/09/2018); heart catheterization (10/2018); bx breast w/device 1st lesion stereotactic guid (Left, 03/25/2021); mastectomy, partial (Left, 04/08/2021); breast lumpectomy hx (Left, 04/08/2021); 2d echo (exep) (05/14/2021); 2d echo (exep) (09/16/2021); and repair, detached retina, laser (Right). Medications: -Patient has a current medication list which includes the following prescription(s): doxycycline, coenzyme q10, ggfzon-iylzzztt-dkfwdz e, lisinopril, fluconazole, estradiol, tamoxifen, pioglitazone, omeprazole, calcium citrate-vitamin d3, ezetimibe, metformin, ammonium lactate, clobetasol propionate, acetaminophen, nitroglycerin sublingual, ketoconazole, montelukast, metoprolol succinate er, lactobacillus acidophilus, and CPAP. Allergies: -Patient is allergic to brilinta [ticagrelor], crestor [rosuvastatin], keflex [cephalexin], lipitor [atorvastatin], lovastatin, and norco [hydrocodone-acetamino phen]. Family History: -Patient family history includes Coronary Artery Disease (age of onset: 25) in her father; Diabetes in her father, maternal grandfather, and paternal grandmother; Lung cancer in her brother; Pancreatic cancer in her (more content not included)... [facility] 05-23-2024 JHONATAN Telephone (UROUPD) DOM AVILA ([id number]) 1955 F Date Time Provider Department 05/23/24 ORI LANDIN UROUPD During your visit today, we recorded the following information about you: Ori Landin DO 05/23/2024 4:45 PM Signed Please let the patient know that I reviewed her bladder diary and recommend the following changes: -Advised her not to drink any coffee after 5 PM and is possible to try eliminating it altogether to see if this helps with her urinary symptoms -Also recommend that she not drink any fluids overnight (that is within 3 hours of bedtime and overnight) -Also recommend that she urinates more often during the day and not hold her bladder more than 3 to 4 hours DO Marek Leroy Jane 05/24/2024 10:47 AM Signed I spoke to patient, pt stated that [facility] is unable to see until Mid Jul, They are needing to know how urgent this appt is, patient is willing to go else where if needed. Ori Landin DO 05/24/2024 12:38 PM Signed She probably should go to another block sorter. She has a 2.4cm adrenal adenoma @[facility], can the referral be faxed to [place] to see if they have sooner availability? DO Cale Leroy Ashley, MA 05/24/2024 12:43 PM Signed Referral Faxed Via [facility] RAUL Arambula Jane 05/25/2024 12:27 PM Signed Spoke to patient she voiced understanding.. Allergies As of Date: 05/23/2024 Noted Allergy Reaction BRILINTA (TICAGRELOR) 06/28/2017 12 - Shortness of Breath CRESTOR (ROSUVASTATIN) 04/10/2020 17 - Myalgia KEFLEX (CEPHALEXIN) 02/02/2006 14 - Other: See Comments Comments: facial flushing LIPITOR (ATORVASTATIN) 07/21/2013 14 - Other: See Comments Comments: myalgia LOVASTATIN 07/21/2013 14 - Other: See Comments Comments: myalgia NORCO (HYDROCODONE-ACETAMINO PHEN) 10/29/2016 9 - Itching Date Reviewed: 05/23/2024 Reviewed by: Francine Lindquist RN - Fully Assessed Reason for Visit: Patient Question [1477] Prescriptions as of 05/25/2024 - doxycycline (VIBRA-TABS) 100 mg tablet Take 200 mg by mouth one time only. - coenzyme Q10 (COENZYME Q-10) 100 mg cap capsule Ubidecarenone Active 100 MG DAILY August 23, 2019 3:27pm - sxouwa-qtycqrpm-rmwtji e (CREON 36) 36,000-114,000- 180,000 unit delayed release capsule .COMPLEX - lisinopril (ZESTRIL) 40 mg tablet Take 40 mg by mouth once daily. - fluconazole (DIFLUCAN) 150 mg tablet 1 tab by mouth every other day for 3 doses - estradiol (ESTRACE) 0.01 % (0.1 mg/gram) vaginal cream Use 1 g vaginally as directed. Insert 1 gm vaginally every night x 14 nights then insert 1 gm vaginally twice weekly - tamoxifen (NOLVADEX) 20 mg tablet Take 1 tablet (20 mg) by mouth once daily. - pioglitazone (ACTOS) 15 mg tablet Take 1 tablet by mouth once daily. - omeprazole (PRILOSEC) 40 mg capsule Take 1 capsule by mouth once daily. - Calcium Citrate-Vitamin D3 (CITRACAL+D) 315 mg-6.25 mcg (250 unit) tab Take 2 tablets by mouth once daily. - ezetimibe (ZETIA) 10 mg tablet Take 1 tablet by mouth once daily. - metFORMIN (GLUCOPHAGE) 500 mg tablet Take 2 tablets by mouth twice daily with meals. - ammonium lactate (LAC-HYDRIN) 12 % lotion Apply 1 application to affected area twice daily as needed. - Clobetasol Propionate 0.05 % gel Apply 1 application to affected area as needed. - acetaminophen (TYLENOL) 500 mg tablet Take 1,000 mg by mouth every 8 hours as needed. - nitroglycerin sublingual (NITROQUICK) 0.4 mg SL tablet Dissolve 1 tablet under the tongue every 5 minutes as needed for Chest Pain. - ketoconazole (NIZORAL) 2 % shampoo Apply 1 application to affected area once daily as needed. - montelukast (SINGULAIR) 10 mg tablet Take 10 mg by mouth daily at bedtime. - metoprolol succinate ER (TOPROL XL) 25 mg 24 hr tablet Take 1 tablet by mouth twice daily. Per Dr. Moodispaw - LACTOBACILLUS ACIDOPHILUS (PROBIOTIC ORAL) Take 1 tablet by mouth once daily. - CPAP Problem List As Of Date 05/23/2024 Noted Resolved Mixed hyperlipidemia [E78.2] 05/31/2009 Obstructive sleep apnea on CPAP [G47.33] Scalp itch [L29.9] Seasonal allergies [J30.2] History of depression [Z86.59] Arthritis [M19.90] Rosacea [L71.9] History of hyperparathyroidism [Z86.39] Female pattern hair loss [L65.8] History of colon polyps [Z86.010] Vitamin D deficiency [E55.9] Essential hypertension [I10] 01/16/2016 Encounter for gynecological examination without*01/16/2016 Narcolepsy without cataplexy [G47.419] 01/16/2016 Diabetic eye exam (HCC) [Z01.00, E11.9] 01/16/2016 Colon cancer screening [Z12.11] 01/16/2016 Controlled type 2 diabetes mellitus without com*10/22/2016 Atherosclerosis of curyung coronary artery with *01/09/2017 S/P angioplasty with stent [Z95.820] 01/09/2017 Meniere disease, right [H81.01] 10/29/2017 H (more content not included)... [facility] Telephone (URUN) DOM AVILA ([id number]) 1955 F Date Time Provider Department 05/23/24 ORI LANDIN During your visit today, we recorded the following information about you: Nicole Madsen MA 05/23/2024 4:04 PM Signed Consult to Endocrinology at [facility] faxed [facility] Nicole Madsen MA Allergies As of Date: 05/23/2024 Noted Allergy Reaction BRILINTA (TICAGRELOR) 06/28/2017 12 - Shortness of Breath CRESTOR (ROSUVASTATIN) 04/10/2020 17 - Myalgia KEFLEX (CEPHALEXIN) 02/02/2006 14 - Other: See Comments Comments: facial flushing LIPITOR (ATORVASTATIN) 07/21/2013 14 - Other: See Comments Comments: myalgia LOVASTATIN 07/21/2013 14 - Other: See Comments Comments: myalgia NORCO (HYDROCODONE-ACETAMINO PHEN) 10/29/2016 9 - Itching Date Reviewed: 05/23/2024 Reviewed by: Francine Lindquist RN - Fully Assessed Reason for Visit: Consult [173] Prescriptions as of 05/23/2024 - doxycycline (VIBRA-TABS) 100 mg tablet Take 200 mg by mouth one time only. - coenzyme Q10 (COENZYME Q-10) 100 mg cap capsule Ubidecarenone Active 100 MG DAILY August 23, 2019 3:27pm - eefyxw-usvcfeea-xtnfkw e (CREON 36) 36,000-114,000- 180,000 unit delayed release capsule .COMPLEX - lisinopril (ZESTRIL) 40 mg tablet Take 40 mg by mouth once daily. - fluconazole (DIFLUCAN) 150 mg tablet 1 tab by mouth every other day for 3 doses - estradiol (ESTRACE) 0.01 % (0.1 mg/gram) vaginal cream Use 1 g vaginally as directed. Insert 1 gm vaginally every night x 14 nights then insert 1 gm vaginally twice weekly - tamoxifen (NOLVADEX) 20 mg tablet Take 1 tablet (20 mg) by mouth once daily. - pioglitazone (ACTOS) 15 mg tablet Take 1 tablet by mouth once daily. - omeprazole (PRILOSEC) 40 mg capsule Take 1 capsule by mouth once daily. - Calcium Citrate-Vitamin D3 (CITRACAL+D) 315 mg-6.25 mcg (250 unit) tab Take 2 tablets by mouth once daily. - ezetimibe (ZETIA) 10 mg tablet Take 1 tablet by mouth once daily. - metFORMIN (GLUCOPHAGE) 500 mg tablet Take 2 tablets by mouth twice daily with meals. - ammonium lactate (LAC-HYDRIN) 12 % lotion Apply 1 application to affected area twice daily as needed. - Clobetasol Propionate 0.05 % gel Apply 1 application to affected area as needed. - acetaminophen (TYLENOL) 500 mg tablet Take 1,000 mg by mouth every 8 hours as needed. - nitroglycerin sublingual (NITROQUICK) 0.4 mg SL tablet Dissolve 1 tablet under the tongue every 5 minutes as needed for Chest Pain. - ketoconazole (NIZORAL) 2 % shampoo Apply 1 application to affected area once daily as needed. - montelukast (SINGULAIR) 10 mg tablet Take 10 mg by mouth daily at bedtime. - metoprolol succinate ER (TOPROL XL) 25 mg 24 hr tablet Take 1 tablet by mouth twice daily. Per Dr. Gomez - LACTOBACILLUS ACIDOPHILUS (PROBIOTIC ORAL) Take 1 tablet by mouth once daily. - CPAP Problem List As Of Date 05/23/2024 Noted Resolved Mixed hyperlipidemia [E78.2] 05/31/2009 Obstructive sleep apnea on CPAP [G47.33] Scalp itch [L29.9] Seasonal allergies [J30.2] History of depression [Z86.59] Arthritis [M19.90] Rosacea [L71.9] History of hyperparathyroidism [Z86.39] Female pattern hair loss [L65.8] History of colon polyps [Z86.010] Vitamin D deficiency [E55.9] Essential hypertension [I10] 01/16/2016 Encounter for gynecological examination without*01/16/2016 Narcolepsy without cataplexy [G47.419] 01/16/2016 Diabetic eye exam (HCC) [Z01.00, E11.9] 01/16/2016 Colon cancer screening [Z12.11] 01/16/2016 Controlled type 2 diabetes mellitus without com*10/22/2016 Atherosclerosis of curyung coronary artery with *01/09/2017 S/P angioplasty with stent [Z95.820] 01/09/2017 Meniere disease, right [H81.01] 10/29/2017 History of transient ischemic attack (TIA) [Z86*10/29/2017 Garibay's cyst of knee, left [M71.22] 03/02/2018 Psoriasis [L40.9] Ductal carcinoma in situ (DCIS) of left breast *05/26/2021 Irritable bowel syndrome with diarrhea [K58.0] 05/26/2021 Foot callus [L84] 05/26/2021 Other skin changes [R23.8] 09/26/2021 RLS (restless legs syndrome) [G25.81] 02/22/2023 Encounter for Medicare annual wellness exam [Z0*04/08/2023 Pancreatic insufficiency [K86.89] 04/08/2023 Living will on file at physician's office [Z78.*04/08/2023 Advance directive discussed with patient [Z71.8*04/08/2023 Other diabetic neurological complication associ*04/17/2024 Encounter Status:Closed by NICOLE MADSEN on 05/23/24 Normal [facility] Urinalysis complete panel (U )Ordered By: Tammi Shaver on 05-23-2024 Bacteria LM.HPF (Urine sed) [#/Area] Moderate Abnormal None Seen /HPF [facility] Bilirubin Ql (U) Negative Negative [facility] Clarity (Unsp spec) Clear Clear [facility] Color (U) Yellow Yellow [facility] Epithelial cells LM.HPF (Urine sed) [#/Area] Many /HPF [facility] Glucose Test strip (U) [Mass/Vol] Negative Negative [facility] Hemoglobin Ql (U) Negative Negative [facility] Interpretation and review of laboratory results Abnormal [facility] Ketones Ql (U) Negative Negative [facility] Leukocyte esterase Test strip Ql (U) 2+ Abnormal Negative [facility] Nitrite Ql (U) Negative Negative [facility] pH (U) 6.0 [pH] 5.0 - 8.0 [facility] Protein (U) [Mass/Vol] Negative Negative [facility] RBC LM.HPF (Urine sed) [#/Area] 3-5 /HPF Abnormal 0-3 /HPF [facility] Specific gravity (U) [Rel density] 1.015 1.005 - 1.030 [facility] Urobilinogen Ql (U) 0.2 EU/dL 0.2-1.0 EU/dL [facility] WBC LM.HPF (Urine sed) [#/Area] 11-25 /HPF Abnormal 0-5 /HPF [facility] Urinalysis complete panel (U )on 05-23-2024 Bacteria LM.HPF (Urine sed) [#/Area] Moderate Abnormal None Seen [facility] Comment on above: Order Comment: Speci men Type: URINE SPECIMENOrdering Facility: [facility] Address: [address] [place] [address] Performed By: #### 2 4356-8 ####[facility] LABCLIA [id number] [place] [address] [place] Bilirubin Ql (U) Negative Normal Negative [facility] Comment on above: Order Comment: Speci men Type: URINE SPECIMENOrdering Facility: [facility] Address: [address] [place] [address] Performed By: #### 2 4356-8 ####[facility] LABIA [id number] [place] [address] [place] Clarity (Unsp spec) Clear Normal Clear [facility] Comment on above: Order Comment: Speci men Type: URINE SPECIMENOrdering Facility: [facility] Address: [address] [place] [address] Performed By: #### 2 4356-8 ####[facility] [id number] [place] [address] [place] Color (U) Yellow Normal Yellow [facility] Comment on above: Order Comment: Speci men Type: URINE SPECIMENOrdering Facility: [facility] Address: [address] [place] [address] Performed By: #### 2 4356-8 ####[facility] LABIA [id number] [place] [address] [place] Epithelial cells LM.HPF (Urine sed) [#/Area] Many Normal [facility] Comment on above: Order Comment: Speci men Type: URINE SPECIMENOrdering Facility: [facility] Address: [address] [place] [address] Performed By: #### 2 4356-8 ####[facility] LABIA [id number] [place] [address] [place] Glucose Test strip (U) [Mass/Vol] Negative Normal Negative [facility] Comment on above: Order Comment: Speci men Type: URINE SPECIMENOrdering Facility: [facility] Address: [address] [place] [address] Performed By: #### 2 4356-8 ####[facility] LABIA [id number] [place] [address] [place] Hemoglobin Ql (U) Negative Normal Negative [facility] Comment on above: Order Comment: Speci men Type: URINE SPECIMENOrdering Facility: [facility] Address: [address] [place] [address] Performed By: #### 2 4356-8 ####[facility] LABCLIA [id number] [place] [address] [place] Ketones Ql (U) Negative Normal Negative [facility] Comment on above: Order Comment: Speci men Type: URINE SPECIMENOrdering Facility: [facility] Address: [address] [place] [address] Performed By: #### 2 4356-8 ####[facility] LABIA [id number] [address] Leukocyte esterase Test strip Ql (U) 2+ Abnormal Negative [facility] Comment on above: Order Comment: Speci men Type: URINE SPECIMENOrdering Facility: [facility] Address: [address] [place] [address] Performed By: #### 2 4356-8 ####[facility] LABCLIA [id number] [place] [address] [place] Nitrite Ql (U) Negative Normal Negative [facility] Comment on above: Order Comment: Speci men Type: URINE SPECIMENOrdering Facility: [facility] Address: [address] [place] [address] Performed By: #### 2 4356-8 ####[facility] LABCLIA [id number] [place] [address] [place] pH (U) 6.0 [pH] Normal 5.0-8.0 [facility] Comment on above: Order Comment: Speci men Type: URINE SPECIMENOrdering Facility: [facility] Address: [address] [place] [address] Performed By: #### 2 4356-8 ####[facility] LABCLIA [id number] [place] [address] [place] Protein (U) [Mass/Vol] Negative Normal Negative [facility] [facility] [place] Comment on above: Order Comment: Speci men Type: URINE SPECIMENOrdering Facility: [facility] Address: [address] [place] [address] Performed By: #### 2 4356-8 ####[facility] LABIA [id number] [place] [address] [place] RBC LM.HPF (Urine sed) [#/Area] 3-5 /HPF Abnormal 0-3 /HPF [facility] Comment on above: Order Comment: Speci men Type: URINE SPECIMENOrdering Facility: [facility] Address: [address] [place] [address] Performed By: #### 2 4356-8 ####[facility] [id number] [place] [address] [place] Specific gravity (U) [Rel density] 1.015 Normal 1.005-1.030 [facility] Comment on above: Order Comment: Speci men Type: URINE SPECIMENOrdering Facility: [facility] Address: [address] [place] [address] Performed By: #### 2 4356-8 ####[facility] [id number] [address] Urobilinogen Ql (U) 0.2 EU/dL Normal 0.2-1.0 EU/dL [facility] [place] Comment on above: Order Comment: Speci men Type: URINE SPECIMENOrdering Facility: [facility] Address: [address] [place] [address] Performed By: #### 2 4356-8 ####[facility] [id number] [address] [place] WBC LM.HPF (Urine sed) [#/Area] 11-25 /HPF Abnormal 0-5 /HPF [facility] Comment on above: Order Comment: Speci men Type: URINE SPECIMENOrdering Facility: [facility] Address: [address] [place] [address] Performed By: #### 2 4356-8 ####[facility] LABIA [id number] [place] [id number] [place] Bacteria Ur Culton Bacteria identified Cx Nom (U) ORGANISM ID: 1 10,000 -<50,000 CFU/ml Normal urogenital holland Normal [facility] Comment on above: Performed By: #### 6 30-4 #### [facility] CLIA [id number] [address] [place], [place] [address] [id number] [place] [address] [place] CNOVon 04-25-2024 CNOV Office Visit (URUN) DOM AVILA ([id number]) 1955 F Date Time Provider Department 04/25/24 8:00 AM ORI LANDIN During your visit today, we recorded the following information about you: Pulse Blood pressure 60/minute 156/73 Lachelle Lemons 04/25/2024 9:28 AM Signed PVR 0 ml Ori Landin DO 04/25/2024 9:28 AM Signed [facility] NEW CONSULT NOTE/NEW PATIENT VISIT/HISTORY AND PHYSICAL: Referring Provider: Francine Madrid APRN PCP: Clifton Hung MD Date of Service: 04/25/2024 SUBJECTIVE Chief Complaint: Consult (Patient states that she was referred for urinary frequency. She states that she gets up 2-3 times at night to urinate and denies any pain/ burning with urination. She does have some pressure in the bladder that comes and goes. She will have some leakage everyday and urgency occasionally. ) History of Present Illness: Dom K Austin is a 68 year old female seen in consultation at the request of Danielle. Madrid for evaluation of LUTS . Patient reports LUTS worsening last year . Urinary Symptoms: Frequency: Yes Urgency: Yes Nocturia: 3 times per night to void. Stress urinary incontinence: Yes Urgency urinary incontinence: Yes Pad use: 2 pantiliners per day. She is bothered by her UI symptoms. Sexually active: Yes UTIs: 1 UTI's in the last year. She denies any history of hematuria. Bowel Symptoms: Stool consistency: constipation/diarrhea . Pelvic Organ Prolapse Symptoms and History: Number of children: 3. Vaginal deliveries: 2 section: 1. 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 ([facility]) (01/09/2017), Garibay's cyst of knee, left (03/02/2018), Breast neoplasm, Tis (DCIS), 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), Colon polyp (2011), Controlled type 2 diabetes mellitus without complication, without long-term current use of insulin ([facility]) (10/22/2016), De Quervain's tenosynovitis, left (07/31/2019), Diabetic eye exam ([facility]) (01/16/2016), 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), 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), Encounter for Medicare annual wellness exam (04/08/2023), Essential hypertension (01/16/2016), Female pattern hair loss, Foot callus (05/26/2021), History of colon polyps, History of depression, History of hyperparathyroidism, History of transient ischemic attack (TIA) (10/29/2017), Irritable bowel syndrome with diarrhea (05/26/2021), Living will on file at physician's office (04/08/2023), Meniere disease, right (10/29/2017), Mixed hyperlipidemia (05/31/2009), Narcolepsy without cataplexy (01/16/2016), Obstructive sleep apnea on CPAP, Pancreatic insufficiency (04/08/2023), Psoriasis, RLS (restless legs syndrome) (02/22/2023), Rosacea, S/P angioplasty with stent (01/09/2017), Scalp itch, Seasonal allergies, Vitamin D deficiency (2012), and Well adult exam (01/16/2016). Past Surgical History: -Patient has a past surgical history that includes cholecystectomy (2004); past surgical history of (2004); total abdominal hysterect w/wo rmvl tube ovary (1995); past surgical history of; heart catheterization (2004); past surgical history of (10/2006); delivery only; low back disk surgery (2009); bunionectomy, lapidus-type (2009); colonoscopy AND polypectomy (10/12, 10/13); colonoscopy (08/07/2015); past surgical history of (2014); heart catheterization (01/04/2017); 2d echo (exep) (06/30/2017); stent placement (01/06/2017); stress test (04/20/2017); past surgical history of (Right, 10/2016); heart surgery hx (12/2016); colonoscopy flx dx w/collj spec when pfrmd (08/09/2018); esophagogastroduodenos copy transoral diagnostic (08/09/2018); heart catheterization (10/2018); bx breast w/device 1st lesion stereotactic guid (Left, 03/25/2021); mastectomy, partial (Left, 04/08/2021); breast lumpectomy hx (Left, 04/08/2021); 2d echo (exep) (05/14/2021); 2d echo (exep) (09/16/2021); and repair, detached retina, laser (Right). Medications: -Patient has a current medication list which includes the following prescription(s): doxycycline, coenzyme q10, aieyit-wlwjkktx-hvemgf e, lisinopril, estradiol, tamoxifen, pioglitazone, omeprazole, calcium citrate-vitamin d3, ezetimibe, ammonium lactate, clobetasol propionate, acetaminophen, nitroglycerin subli (more content not included)... Normal [facility] UA DIP, URINE (POC)on 2023 BILIRUBIN UA (POCT) Negative Negative [facility] CLARITY UA (POCT) Clear [facility] COLOR UA (POCT) Yellow [facility] GLUCOSE UA (POCT) Negative Negative mg/dL [facility] Hemoglobin Ql (U) Negative Negative [facility] Interpretation and review of laboratory results Abnormal [facility] KETONE UA (POCT) Negative Negative mg/dL [facility] LEUKOCYTES UA (POCT) Moderate Abnormal Negative [facility] NITRITE UA (POCT) Negative Negative [facility] PH UA (POCT) 6.0 4.5 - 8.0 [facility] Protein Ql (U) Negative Negative mg/dL [facility] SPECIFIC GRAVITY UA (POCT) 1.010 1.005 - 1.030 [facility] UROBILINOGEN UA (POCT) 0.2 Normal E.U./d L [facility] Location:[facility], [address] [place] [address] Dr. Anne [facility], [place], [place], [address] [place] [address] POINT OF CARE [facility] Urinalysis complete panel (U )Ordered By: Yennifer Veliz on 04-25-2024 Bilirubin Ql (U) Negative Negative [facility] Clarity (Unsp spec) Clear Clear [facility] Color (U) Yellow Yellow [facility] Epithelial cells LM.HPF (Urine sed) [#/Area] Few Abnormal None Seen /HPF [facility] Glucose Test strip (U) [Mass/Vol] Negative Negative [facility] Hemoglobin Ql (U) Negative Negative [facility] Interpretation and review of laboratory results Abnormal [facility] Ketones Ql (U) Negative Negative [facility] Leukocyte esterase Test strip Ql (U) 3+ Abnormal Negative [facility] Nitrite Ql (U) Negative Negative [facility] pH (U) 6.0 [pH] 5.0 - 8.0 [facility] Protein (U) [Mass/Vol] Negative Negative [facility] RBC LM.HPF (Urine sed) [#/Area] 0-3 /HPF 0-3 /HPF [facility] Specific gravity (U) [Rel density] 1.010 1.005 - 1.030 [facility] Urobilinogen Ql (U) 0.2 EU/dL 0.2-1.0 EU/dL Cl [facility] WBC LM.HPF (Urine sed) [#/Area] 11-25 /HPF Abnormal 0-5 /HPF [facility] Urinalysis complete panel (U )on 04-25-2024 Bilirubin Ql (U) Negative Normal Negative [facility] Comment on above: Order Comment: Speci men Type: URINE SPECIMENOrdering Facility: [facility] Address: [address] [place] [address] Performed By: #### 2 4356-8 ####[facility] LABCLIA [id number] [place] [address] [place] Clarity (Unsp spec) Clear Normal Clear [facility] Comment on above: Order Comment: Speci men Type: URINE SPECIMENOrdering Facility: [facility] Address: [address] [place] [address] Performed By: #### 2 4356-8 ####[facility] LABIA [id number] [place] [address] [place] Color (U) Yellow Normal Yellow [facility] Comment on above: Order Comment: Speci men Type: URINE SPECIMENOrdering Facility: [facility] Address: [address] [place] [address] Performed By: #### 2 4356-8 ####[facility] LABCLIA [id number] [address] [place] Epithelial cells LM.HPF (Urine sed) [#/Area] Few Normal [facility] Comment on above: Order Comment: Speci men Type: URINE SPECIMENOrdering Facility: [facility] Address: [address] [place] [address] Result Comment: Few Performed By: #### 2 4356-8 ####[facility] LABCLIA [id number] [address] [place] Glucose Test strip (U) [Mass/Vol] Negative Normal Negative [facility] Comment on above: Order Comment: Speci men Type: URINE SPECIMENOrdering Facility: [facility] Address: [address] [place] [address] Performed By: #### 2 4356-8 ####[facility] LABCLIA [id number] [place] [address] [place] Hemoglobin Ql (U) Negative Normal Negative [facility] Comment on above: Order Comment: Speci men Type: URINE SPECIMENOrdering Facility: [facility] Address: [address] [place] [address] Performed By: #### 2 4356-8 ####[facility] LABCLIA [id number] [address] STATES [facility] Ketones Ql (U) Negative Normal Negative [facility] Comment on above: Order Comment: Speci men Type: URINE SPECIMENOrdering Facility: [facility] Address: [address] [place] [address] Performed By: #### 2 4356-8 ####[facility] LABIA [id number] [address] Leukocyte esterase Test strip Ql (U) 3+ Abnormal Negative [facility] Comment on above: Order Comment: Speci men Type: URINE SPECIMENOrdering Facility: [facility] Address: [address] [place] [address] Performed By: #### 2 4356-8 ####[facility] LABIA [id number] [place] [address] [place] Nitrite Ql (U) Negative Normal Negative [facility] Comment on above: Order Comment: Speci men Type: URINE SPECIMENOrdering Facility: [facility] Address: [address] [place] [address] Performed By: #### 2 4356-8 ####[facility] LABIA [id number] [place] [address] [place] pH (U) 6.0 [pH] Normal 5.0-8.0 [facility] Comment on above: Order Comment: Speci men Type: URINE SPECIMENOrdering Facility: [facility] Address: [address] [place] [address] Performed By: #### 2 4356-8 ####[facility] LABIA [id number] [place] [address] [place] Protein (U) [Mass/Vol] Negative Normal Negative [facility] [place] Comment on above: Order Comment: Speci men Type: URINE SPECIMENOrdering Facility: [facility] Address: [address] [place] [address] Performed By: #### 2 4356-8 ####[facility] [id number] [address] STATES [facility] RBC LM.HPF (Urine sed) [#/Area] 0-3 /HPF Normal 0-3 /HPF [facility] Comment on above: Order Comment: Speci men Type: URINE SPECIMENOrdering Facility: [facility] Address: [address] [place] [address] Performed By: #### 2 4356-8 ####[facility] [id number] [address] STATES [facility] Specific gravity (U) [Rel density] 1.010 Normal 1.005-1.030 [facility] Comment on above: Order Comment: Speci men Type: URINE SPECIMENOrdering Facility: [facility] Address: [address] [place] [address] Performed By: #### 2 4356-8 ####[facility] [id number] [address] Urobilinogen Ql (U) 0.2 EU/dL Normal 0.2-1.0 EU/dL [facility] [place] Comment on above: Order Comment: Speci men Type: URINE SPECIMENOrdering Facility: [facility] Address: [address] [place] [address] Performed By: #### 2 4356-8 ####[facility] [id number] [address] [place] WBC LM.HPF (Urine sed) [#/Area] 11-25 /HPF Abnormal 0-5 /HPF [facility] Comment on above: Order Comment: Speci men Type: URINE SPECIMENOrdering Facility: [facility] Address: [address] [place] [address] Performed By: #### 2 4356-8 ####[facility] [id number] [place] [address] [place] Cardiology Visit Reporton Cardiology Visit Report [facility] [address] [place] [address] OFFICE VISIT Date of Service: 04/21/24 MR#: [id number] Acct: [id number] Name: DOM AVILA Rep #: [id number] : 1955 Provider: Dr. Karsten Zarate MD Age/Sex: 68/F Location: [facility] Status: Signed HPI HPI History of Present Illness Details: This is a 68-year-old white female who presents today for outpatient cardiovascular follow-up of her history of underlying CAD, status post PCI (LAD and PTCA to the ostium of diagonal branch #2)- December,, hyperlipidemia, hypertension, palpitations, and history of breast carcinoma with left chest radiation (17 sessions) with last treatment in June 2021. She denies bilateral lower extremity edema. She denies claudication. She denies shortness of breath with activity, shortness of breath at rest, orthopnea, or PND. She denies chronic cough. She denies significant, sudden weight gain. She acknowledges occasional dizziness when standing too quickly. She states this is not new. She denies lightheadedness, near-syncope, or syncope. She denies blood in urine, blood in stool, or epistaxis. He denies fever or chills. She denies myalgia. She denies fatigue. Her exercise level has remained stable. Her blood pressure at home is better controlled. Intake Vital Signs 12/28/23 00:40 04/21/24 13:31 Height 5 ft 3 in 5 ft 3 in Weight: 146 lb BMI 25.8 BP 146/79 H Blood Pressure Location Lt brachial Position Sitting Respiration 16 Pulse 65 Pulse Source NIBP Intake Visit Reasons: 1 YR F/U (PFM PT) Communication Skills Instructor Required: No Accompanied by: None Is patient in pain?: No Allergies lovastatin Allergy (Intermediate, Verified 04/21/24 13:37) Other rosuvastatin (From Crestor) Allergy (Intermediate, Verified 04/21/24 13:37) Other ticagrelor (From Brilinta) Allergy (Intermediate, Verified 04/21/24 13:37) Shortness of breath atorvastatin Allergy (Unknown, Verified 04/21/24 13:37) myalgia hydrocodone Allergy (Verified 04/21/24 13:37) Hives cephalexin monohydrate (From [employer]) Adverse Reaction (Verified 04/21/24 13:37) Other pravastatin Adverse Reaction (Verified 04/21/24 13:37) myalgias Medications ???Medication ???Instructions ???Recorded ???Confirmed ???Type L.acidoph, paracasei,B. lactis 10 1 ea PO QHS 09/23/16 04/21/24 History billion cell capsule montelukast 10 mg tablet 10 mg PO QPM 08/22/18 04/21/24 History coenzyme Q10 100 mg capsule 100 mg PO DAILY 08/23/19 04/21/24 History metformin 500 mg 24 hr 1,000 mg PO BID 11/24/21 04/21/24 History tablet,extended release (gastric retention) tamoxifen 20 mg tablet 20 mg PO DAILY 11/24/21 04/21/24 History doxycycline monohydrate 50 mg 50 mg PO DAILY PRN Skin 05/28/22 04/21/24 History capsule clobetasol 0.05 % topical gel 1 applic topical DAILY PRN Skin 09/03/22 04/21/24 History Cleansing omeprazole 40 mg capsule,delayed 40 mg PO DAILY 11/30/22 04/21/24 History release poteay-khpiikvl-sfgkbp e See Rx Instructions PO .COMPLEX 03/04/23 04/21/24 Rx 36,000-114,000-180,000 unit #56 caps capsule,delay rel (Creon) Handicap Placard #1 ea 08/30/23 Rx calcium citrate 315 mg 2 tab PO DAILY 08/30/23 04/21/24 History calcium-vitamin D3 6.25 mcg (250 unit) tablet ezetimibe 10 mg tablet (Zetia) 10 mg PO DAILY 08/30/23 04/21/24 History ketoconazole 2 % shampoo 1 applic topical QODAY 08/30/23 04/21/24 History lactulose 10 gram/15 mL oral 15 ml PO DAILY PRN constipation 11/03/23 04/21/24 Rx solution #473 mL metoprolol tartrate 25 mg tablet 25 mg PO BID #180 tabs 01/27/24 04/21/24 Rx nitroglycerin 0.4 mg sublingual 0.4 mg sublingual Q5M PRN Chest 03/03/24 04/21/24 Rx tablet Pain #25 tabs ammonium lactate 12 % lotion topical 04/21/24 04/21/24 History cholecalciferol (vitamin D3) 125 125 mcg PO DAILY 04/21/24 04/21/24 History mcg (5,000 unit) tablet estradiol 0.01% (0.1 mg/gram) vaginal 04/21/24 04/21/24 History vaginal cream lisinopril 40 mg tablet 40 mg PO DAILY #90 tabs 04/21/24 04/21/24 Rx pioglitazone 15 mg tablet 15 mg PO QDAY 04/21/24 04/21/24 History PFSH Medical History COVID-19 ( 10/2022) Loss of hearing Anxiety Discoloration of skin Injury of head and neck Dietary restriction Hx of gastritis Gastric reflux Shortness of breath on exertion Leg cramps History of pain when walking Heart palpitations Cardiology follow-up encounter Epigastric pain Vitamin D deficiency Rosacea Psoriasis IBS (irritable bowel syndrome) History of TIA (transient ischemic attack) Colon polyp Nausea Breast cancer, left Wears glasses Arthritis Easy bruising Excessive bleeding Former smoker CPAP (continuous positive airway pressure) dependence (more content not included)... Normal [facility] ALBUMIN/CREATININE RATIO, UR INEon 04-17-2024 Albumin DL <= 20 mg/L (U) [Mass/Vol] mg/L mg/L [facility] Albumin/Creatinine (U) [Mass ratio] mg/g NINF - 30 mg/g [facility] Comment on above: Adult Male and Femal e Nephrotic Criteria: <30 mg/g is considered normal to mildly increased 30-300 mg/g is considered moderately increased >300 mg/g is considered severely increased KDIGO. (2013). KDIGO 2012 Clinical Practice Guideline for the Evaluation and Management of Chronic Kidney Disease. Official Journal of the International Society of Nephrology, 3(1), 1-150. Creatinine (U) [Mass/Vol] 100.9 mg/dL 20.0 - 300.0 mg/dL [facility] CBC W Auto Differential pane l (Bld)on 04-17-2024 Basophils (Bld) [#/Vol] [facility] Basophils/100 WBC (Bld) 0.4 % [facility] Differential cell count method Nom (Bld) Auto [facility] Eosinophils (Bld) [#/Vol] 0.07 10*3/uL [facility] Eosinophils/100 WBC (Bld) 1.3 % [facility] Erythrocyte distribution width (RBC) [Ratio] 14.2 % 11.5 - 15.0 % [facility] Hematocrit (Bld) [Volume fraction] 38.3 % 36.0 - 46.0 % [facility] Hemoglobin (Bld) [Mass/Vol] 12.4 g/dL 11.5 - 15.5 g/dL [facility] Immature granulocytes (Bld) [#/Vol] [facility] Immature granulocytes/100 WBC (Bld) 0.2 % [facility] Lymphocytes (Bld) [#/Vol] 1.82 10*3/uL [facility] Lymphocytes/100 WBC (Bld) 34.9 % [facility] MCH (RBC) [Entitic mass] 30.7 pg 26.0 - 34.0 pg [facility] MCHC (RBC) [Mass/Vol] 32.4 g/dL 30.5 - 36.0 g/dL [facility] MCV (RBC) [Entitic vol] 94.8 fL 80.0 - 100.0 fL [facility] Monocytes (Bld) [#/Vol] 0.47 10*3/uL [facility] Monocytes/100 WBC (Bld) 9.0 % [facility] Neutrophils (Bld) [#/Vol] 2.83 10*3/uL [facility] Neutrophils/100 WBC (Bld) 54.2 % [facility] Nucleated RBC (Bld) [#/Vol] [facility] Nucleated RBC/100 WBC (Bld) [Ratio] 0.0 % /100 WBC [facility] Platelet mean volume (Bld) [Entitic vol] 9.9 fL 9.0 - 12.7 fL [facility] Platelets (Bld) [#/Vol] 204 10*3/uL [facility] RBC (Bld) [#/Vol] 4.04 10*6/uL 3.90 - 5.2 0 m/uL [facility] WBC (Bld) [#/Vol] 5.22 10*3/uL [facility] Comprehensive metabolic 2000 panelon 04-17-2024 Albumin [Mass/Vol] 3.8 g/dL Low 3.9 - 4.9 g/dL Cl [facility] ALP [Catalytic activity/Vol] 37 U/L 34 - 123 U/L [facility] ALT [Catalytic activity/Vol] 11 U/L 7 - 38 U/L [facility] Anion gap [Moles/Vol] 11 mmol/L 8 - 15 mmol/L [facility] AST [Catalytic activity/Vol] 20 U/L 13 - 35 U/L [facility] Bilirubin [Mass/Vol] 0.2 mg/dL 0.2 - 1 .3 mg/dL [facility] Calcium [Mass/Vol] 8.9 mg/dL 8.5 - 10. 2 mg/dL [facility] Chloride [Moles/Vol] 105 mmol/L 98 - 10 7 mmol/L [facility] CO2 [Moles/Vol] 26 mmol/L 22 - 30 mmol/L [facility] Creatinine [Mass/Vol] 0.78 mg/dL 0.58 - 0.96 mg/dL [facility] GFR/1.73 sq M.predicted among non-blacks MDRD (S/P/Bld) [Vol rate/Area] 84 mL/min/{1.73_m2} - PINF [facility] Comment on above: Estimated Glomerular Filtration Rate (eGFR) is calculated using the 2020 CKD-EPI creatinine equation. This equation utilizes serum creatinine, sex, and age as parameters. The creatinine assay has traceable calibration to isotope dilution-mass spectrometry. Refer to KDIGO guidelines for clinical interpretation. In patients with unstable renal function, e.g. those with acute kidney injury, the eGFR may not accurately reflect actual GFR. Glucose [Mass/Vol] 119 mg/dL High 74 - 99 mg/dL [facility] Comment on above: The [place] [employer] (ADA) provides guidance for cutoff values for fasting glucose and random glucose. The ADA defines fasting as no caloric intake for at least 8 hours. Fasting plasma glucose results between 100 to 125 [...] Standards of Medical Care in Diabetes 2016, [place] [employer]. Diabetes Care. 2016.39(Suppl 1). Potassium [Moles/Vol] 4.1 mmol/L 3.7 - 5.1 mmol/L [facility] Protein [Mass/Vol] 6.3 g/dL 6.3 - 8.0 g/dL [facility] Sodium [Moles/Vol] 142 mmol/L 136 - 144 mmol/L [facility] Urea nitrogen [Mass/Vol] 11 mg/dL 7 - 21 mg/dL [facility] HbA1c (Bld)on 04-17-2024 Average glucose Estimated from glycated hemoglobin (Bld) [Mass/Vol] 166 mg/dL [facility] Comment on above: eAG: (Estimated aver age glucose) is a calculated value from HgbA1c and is healthcare sales representative of the average blood glucose level in the last 2-3 month period. HbA1c (Bld) [Mass fraction] 7.4 % High 4.3 - 5.6 % [facility] Comment on above: [place] [employer] sociation guidelines indicate that patients with HgbA1c in the range 5.7-6.4% are at increased risk for development of diabetes, and intervention by lifestyle modification may be beneficial. HgbA1c greater or equal to 6.5% is considered diagnostic of diabetes. Interpretation and review of laboratory results Abnormal [facility] LIPID PANEL, NONFASTINGon Cholesterol [Mass/Vol] 153 mg/dL NINF - 200 mg/dL [facility] Comment on above: <200 mg/dL, Desirabl e 200-239 mg/dL, Borderline high >239 mg/dL, High HDL Cholesterol, Nonfasting 36 mg/dL Low 39 - PINF mg/dL [facility] Comment on above: 40-59 mg/dL, Accepta ble >59 mg/dL, High: Negative risk factor for coronary heart disease <40 mg/dL, Low: Positive risk factor for coronary heart disease LDL Cholesterol, Nonfasting 91 mg/dL NINF - 100 mg/dL [facility] Comment on above: <100 mg/dL, Optimal 100-129 mg/dL, Near optimal/above optimal 130-159 mg/dL, Borderline high 160-189 mg/dL, High >189 mg/dL, Very high Secondary prevention optimal LDL Cholesterol levels are recommended to be < 70 mg/dL LDL/HDL Ratio, Nonfasting 2.53 mg/dL NINF - 2.54 mg/dL [facility] Comment on above: Reference: 1. National Cholesterol Education Program ATP III Guideline At-A-Glance Quick Desk Reference: National Heart, Lung, and Blood [place]. National Institutes of Health. 2001: NIH Publication No. 01-3305. 2. An International Atherosclerosis Society position paper: global recommendations for the management of dyslipidemia: executive summary, Atherosclerosis. 2014: 232(2):410-413. Non HDL Cholesterol, Nonfasting 117 mg/dL NINF - 130 mg/dL [facility] Comment on above: <130 mg/dL, Optimal 130-159 mg/dL, Near optimal/above optimal 160-189 mg/dL, Borderline high 190-219 mg/dL, High >219 mg/dL, Very high Secondary prevention optimal non HDL Cholesterol levels are recommended to be <100 mg/dL Total Chol/HDL Ratio, Nonfasting 4.25 mg/dL NINF - 5.10 mg/dL [facility] Triglycerides, Nonfasting 132 mg/dL NINF - 150 mg/dL [facility] Comment on above: <150 mg/dL, Normal 150-199 mg/dL, Borderline high 200-499 mg/dL, High >499 mg/dL, Very high VLDL Cholesterol, Nonfasting 26 mg/dL NINF - 30 mg/dL [facility] No Panel Informationon 04-17 Interpretation and review of laboratory results Abnormal [facility] Urinalysis complete panel (U )on 04-17-2024 Bacteria LM.HPF (Urine sed) [#/Area] Negative Negative /HPF [facility] Bilirubin Ql (U) Negative Negative [facility] Clarity (Unsp spec) Cloudy Abnormal Clear [facility] Color (U) Yellow Yellow [facility] Epithelial cells LM.HPF (Urine sed) [#/Area] Moderate /HPF [facility] Glucose Test strip (U) [Mass/Vol] Negative Negative [facility] Hemoglobin Ql (U) Negative Negative [facility] Hyaline casts (Urine sed) [#/Area] 0 /[LPF] 0 /LPF [facility] Interpretation and review of laboratory results Abnormal [facility] Ketones Ql (U) Negative Negative [facility] Leukocyte esterase Test strip Ql (U) 2+ Abnormal Negative [facility] Nitrite Ql (U) Negative Negative [facility] pH (U) 6.0 [pH] NINF - 8.5 [facility] Protein (U) [Mass/Vol] Negative Negative [facility] RBC LM.HPF (Urine sed) [#/Area] 11-20 /HPF Abnormal 0-2 /HPF [facility] Specific gravity (U) [Rel density] 1.017 1.005 - 1.030 [facility] Urobilinogen Ql (U) 0.2 EU/dL 0.2-1.0 EU/dL [facility] WBC LM.HPF (Urine sed) [#/Area] 0-5 /HPF 0-5 /HPF [facility] Result rechecked This test was developed and its performance characteristics determined by [facility] [place] ([facility] It has not been cleared or approved by the FDA. [facility] is regulated under CLIA as qualified to perform high-complexity testing. This test is used for clinical purposes. It should not be regarded as investigational or for research. [facility] COVID & INFLUENZA A/B & RSV NAAT, ROUTINEon 03-23-2024 FLUAV RNA MICHAEL+probe Ql (Unsp spec) Not detected Not Detected [facility] FLUBV RNA MICHAEL+probe Ql (Unsp spec) Not detected Not Detected [facility] Interpretation and review of laboratory results Normal [facility] RSV A RNA MICHAEL+probe Ql (Unsp spec) Not detected Not Detected [facility] SARS-CoV-2 (COVID-19) RNA MICHAEL+probe Ql (Resp) Not detected See comment [facility] Comment on above: The method used is R T-PCR or an equivalent NAAT method. Reference Range (the expected result in uninfected individuals): Not detected For upper respirator y tract samples, this test has been authorized by FDA under Emergenecy Use Authorization (EUA). For lower respiratory tract samples, this test was developed and its performance characteristics determined by [facility] ([facility]). It has not been cleared or approved by the FDA. [facility] is regulated under CLIA as qualified to perform high-complexity testing. This test is used for clinical purposes. It should not be regarded as investigational or for research. Test performed by [facility], [facility] [place], [address], [place], [place] [address]. [facility] STREP A MOLECULAR (POC)on Procedural Control Valid [facility] Strep A (POCT) Negative Negative [facility] DBT Breast - bilateral scree rajigon 03-09-2024 IMPRESSION: BENIGN FINDING There is no mammographic evidence of malignancy. A 1 year screening mammogram is recommended. Paresh grimaldo/christian:03/09/2024 21:41:09 Hogshead Head Matcher(s): Debby Lin RT(R)(M), [facility] letter sent: Normal over 40 Mammogram BI-RADS: 2 Benign finding Multiple national specialty organizations have released breast cancer screening guidelines for women at average risk for developing breast cancer - guidelines that are based on both evidence and opinion, yet differ on when to start and how often to screen for breast cancer. With representation from Breast Imaging, Internal Medicine, Women's Health, Family Medicine, and Medical/Surgical Oncology, the [facility] has carefully reviewed the data [...] their providers when to stop screening mammograms. Color Checker Roving Or Yarn: Christian Transcribe Date/Time: Mar 09 2024 8:22A Dictated by: PARESH HWANG MD This examination was interpreted and the report reviewed and electronically signed by: PARESH HWANG MD on Mar 09 2024 9:41PM [facility] DIVISION OF RADIOLOGY * * *Final Report* * * DATE OF EXAM: Mar 09 2024 8:44AM [id number] - [facility] SCREENING W ANGELA / PROCEDURE REASON: multiple diagnoses * * * * Physician Interpretation * * * * RESULT: #[id number] - [facility]ER[facility] SCREENING W ANGELA BILATERAL DIGITAL SCREENING MAMMOGRAM TOMOSYNTHESIS WITH CAD: 03/09/2024 HISTORY: /Screening Mammogram with ANGELA - patient reports NO breast symptoms /priors available for comparison Multiple Diagnoses. RESULT: TECHNIQUE: The study was acquired using full field digital technology and interpreted from soft copy. Digital Breast Tomosynthesis (DBT) images were obtained and used to assist in the interpretation of this examination. Current study was also evaluated with a Computer Aided Detection (CAD). Comparison is made to exams dated: 02/24/2023 mammogram, 02/23/2022 mammogram, and 02/21/2021 mammogram - [facility]. There are scattered areas of fibroglandular density. There are benign post operative findings in the left breast. No significant masses, calcifications, or other findings are seen in either breast. There has been no significant interval change. DIVISION OF RADIOLOGY Provider, [facility] - 03/09/2024 * * *Final Report* * * DATE OF EXAM: Mar 09 2024 8:44AM [id number] - [facility] SCREENING W ANGELA / PROCEDURE REASON: multiple diagnoses * * * * Physician Interpretation * * * * RESULT: #[id number] - [facility] SCREENING W ANGELA BILATERAL DIGITAL SCREENING MAMMOGRAM TOMOSYNTHESIS WITH CAD: 03/09/2024 HISTORY: /Screening Mammogram with ANGELA - patient reports NO breast symptoms /priors available for comparison Multiple Diagnoses. RESULT: TECHNIQUE: The study was acquired using full field digital technology and interpreted from soft copy. Digital Breast Tomosynthesis (DBT) images were obtained and used to assist in the interpretation of this examination. Current study was also evaluated with a Computer Aided Detection (CAD). Comparison is made to exams dated: 02/24/2023 mammogram, 02/23/2022 mammogram, and 02/21/2021 mammogram - [facility]. There are scattered areas of fibroglandular density. There are benign post operative findings in the left breast. No significant masses, calcifications, or other findings are seen in either breast. There has been no significant interval change. IMPRESSION IMPRESSION: BENIGN FINDING There is no mammographic evidence of malignancy. A 1 year screening mammogram is recommended. Paresh grimaldo/christian:03/09/2024 21:41:09 Hogshead Head Matcher(s): Debby Lin RT(R)(M), [facility] letter sent: Normal over 40 Mammogram BI-RADS: 2 Benign finding Multiple national specialty organizations have released breast cancer screening guidelines for women at average risk for developing breast cancer - guidelines that are based on both evidence and opinion, yet differ on when to start and how often to screen for breast cancer. With representation from Breast Imaging, Internal Medicine, Women's Health, Family Medicine, and Medical/Surgical Oncology, the [facility] has carefully reviewed the data [...] their providers when to stop screening mammograms. Color Checker Roving Or Yarn: Christian Transcribe Date/Time: Mar 09 2024 8:22A Dictated by: PARESH HWANG MD This examination was interpreted and the report reviewed and electronically signed by: PARESH HWANG MD on Mar 09 2024 9:41PM EST [facility] Radiology Study observation (narrative) [facility] DBT Breast - bilateral scree ningOrdered By: [facility] Provider on 03-09-2024 [facility] Microscopic observation Gram stain Nom (Vag fld)on 01-19-2024 Bacterial Vaginosis BACTERIAL VAGINOSIS RESULT: Stain results consistent with normal vaginal hol[place]. [facility] Bacterial Vaginosis No Yeast observed [facility] Bacterial Vaginosis No Polymorphonuclear Leukocytes [facility] UA DIP, URINE (POC)on 2023 BILIRUBIN UA (POCT) Negative Negative [facility] CLARITY UA (POCT) Clear [facility] COLOR UA (POCT) Yellow [facility] GLUCOSE UA (POCT) Negative Negative mg/dL [facility] Hemoglobin Ql (U) Negative Negative [facility] KETONE UA (POCT) Negative Negative mg/dL [facility] LEUKOCYTES UA (POCT) Small Abnormal Negative [facility] NITRITE UA (POCT) Negative Negative [facility] PH UA (POCT) 5.5 4.5 - 8.0 [facility] Protein Ql (U) Negative Negative mg/dL [facility] SPECIFIC GRAVITY UA (POCT) 1.010 1.005 - 1.030 [facility] UROBILINOGEN UA (POCT) 0.2 E.U./dL Normal E.U./ dL [facility] MRCP Abdomen without Contras ton 01-03-2024 MRCP Abdomen without Contrast [facility] Imaging Services [address] [place] [id number] MRCP Abdomen without Contrast MR#: [id number] Acct: [id number] Name: DOM AVILA Rep #: [id number] : 1955 F 68 From: Tony Condon MD PCP: Dr. Clifton Hung MD Status: DEP CLI Study: MRCP Abdomen without Contrast Date of Exam: Exam# [id number] Ordering Dr: Carson Alcantar DO ADDENDUM by Dr. Tony Condon MD on 01/27/24 at 1059 ====== ADDENDUM ====== [id number] Report correction: Pancreas resection should state: Pancreas is present. No focal cystic or solid mass. No pancreatic duct dilatation. Electronically Signed: Tony Condon MD at 10:59 EDT , 01/27/24 1059 Date cc: Dr. Clifton Hung MD; Carson Alcantar DO * Signed ADDENDUM by Dr. Tony Condon MD on 01/27/24 at 1059 MRI/MRCP Abdomen without Contrast IMPRESSION: undefined 01/27/24 1106 Date cc: Dr. Clifton Hung MD; Carson Alcantar DO * Signed [id number] EXAM: MR ABDOMEN WITHOUT INTRAVENOUS CONTRAST, MRCP PROTOCOL CLINICAL INDICATION: ca 19-9 elevated/ FH pancreatic cancer TECHNIQUE: Multiplanar and multisequence MR images of the abdomen without intravenous contrast obtained with MRCP sequence. Three-dimensional post-processing reconstructions were performed. COMPARISON: No relevant prior studies available. FINDINGS: LOWER THORAX: Normal. No pleural effusion. LIVER: Normal. Normal morphology. GALLBLADDER AND BILE DUCTS: Common bile duct measures 7 mm in maximum diameter which is normal for postcholecystectomy patient. PANCREAS: Pancreas is absent. No focal cystic or solid mass. No pancreatic duct dilation. SPLEEN: Normal. Non-enlarged. ADRENALS: Normal. No nodules. KIDNEYS AND URETERS: 12 mm right renal cyst. Normal renal size and position. No hydronephrosis. INTRAPERITONEAL SPACE: Normal. No ascites or other fluid collection. VASCULATURE: Normal. Abdominal aorta is non-dilated. LYMPH NODES: No enlarged lymph nodes. MRI/MRCP Abdomen without Contrast IMPRESSION: No evidence of a pancreatic mass. Normal MRI of the upper abdomen status post cholecystectomy Electronically Signed: Tony Condon MD at 9:59 EST , CC: Dr. Clifton Hung MD; Carson Alcantar DO Color Checker Roving Or Yarn: Signed Normal [facility] Emergency Department Summary on 12-28-2023 Emergency Department Summary [facility] Medical Records Department [address] [place] [address] Emergency Department Summary 12/28/23 MR#: [id number] Acct: [id number] Name: DOM AVILA Rep #: [id number] : 1955 68 From: Victor M Hernandez DO PCP: Dr. Clifton Hung MD Status:DEP ER Location: ED HPI History of Present Illness Chief Complaint: Headache Informant: patient Narrative Narrative: Patient is a 68-year-old female with past medical history of hypertension type 2 diabetes and recent diagnosis of influenza. Patient states she has had generalized fatigue with congestion and cough since her development of influenza and she is also had persistent headache. She states she was able to fall asleep today and when she awoke in the evening did not take her nighttime blood pressure medications but noted a increase in her headache. She states that she checked her blood pressure when she noticed the increase in her headache and it was elevated and this concerned her so therefore she comes to the hospital for evaluation. 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 Breast cancer, left Cardiology follow-up encounter Cardiovascular stress test abnormal Chest pain Colon polyp COVID-19 ( 10/2022) CPAP (continuous positive airway pressure) dependence Dietary restriction Discoloration of skin Easy bruising Encounter for long-term (current) use of other medications Epigastric pain Excessive bleeding Former smoker Gastric reflux Heart palpitations History of pain when walking History of TIA (transient ischemic attack) Hx of cardiovascular stress test ( 09/13/18) Hx of echocardiogram ( 06/30/17) Hx of gastritis IBS (irritable bowel syndrome) Injury of head and neck Leg cramps Loss of hearing Menieres disease Mixed hyperlipidemia Nausea Presence of stent in coronary artery ( 01/05/17) Psoriasis Rosacea Shortness of breath on exertion Vitamin D deficiency Wears glasses Home Medications L.acidoph, paracasei,B. lactis 10 billion cell capsule 1 ea PO QHS 09/23/16 [History Last Taken 06/28/17] cholecalciferol (vitamin D3) 50 mcg (2,000 unit) capsule 4,000 unit PO DAILY 08/22/18 [History Last Taken Unknown] montelukast 10 mg tablet 10 mg PO QPM 08/22/18 [History Last Taken Unknown] coenzyme Q10 100 mg capsule 100 mg PO DAILY 08/23/19 [History Last Taken Unknown] metformin 500 mg 24 hr tablet,extended release (gastric retention) 1,000 mg PO BID 11/24/21 [History Last Taken Unknown] potassium chloride 10 mEq tablet,extended release 20 meq PO BID 11/24/21 [History Last Taken Unknown] tamoxifen 20 mg tablet 20 mg PO DAILY 11/24/21 [History Last Taken Unknown] doxycycline monohydrate 50 mg capsule 50 mg PO DAILY PRN Skin 05/28/22 [History Last Taken Unknown] nitroglycerin 0.4 mg sublingual tablet 0.4 mg sublingual Q5M PRN Chest Pain #25 tabs 05/28/22 [Rx Last Taken Unknown] clobetasol 0.05 % topical gel 1 applic topical DAILY PRN Skin Cleansing 09/03/22 [History Last Taken Unknown] magnesium oxide 500 mg PO DAILY 09/03/22 [History Last Taken Unknown] omeprazole 40 mg capsule,delayed release 40 mg PO DAILY 11/30/22 [History Last Taken Unknown] dznoeb-fkcihkqx-hohrwz e 36,000-114,000-180,000 unit capsule,delay rel (Creon) See Rx Instructions PO .COMPLEX #56 caps 03/04/23 [Rx Last Taken Unknown] metoprolol tartrate 25 mg tablet 25 mg PO BID #180 tabs 03/15/23 [Rx Last Taken Unknown] Handicap Placard #1 ea 08/30/23 [Rx Last Taken Unknown] calcium citrate 315 mg calcium-vitamin D3 6.25 mcg (250 unit) tablet 2 tab PO DAILY 08/30/23 [History Last Taken Unknown] ezetimibe 10 mg tablet (Zetia) 10 mg PO DAILY 08/30/23 [History Last Taken Unknown] ketoconazole 2 % shampoo 1 applic topical QODAY 08/30/23 [History Last Taken Unknown] lisinopril 5 mg tablet 30 mg PO BID This is a dose increase 08/30/23 [History Last Taken Unknown] lactulose 10 gram/15 mL oral solution 15 ml PO DAILY PRN constipation #473 mL 11/03/23 [Rx Last Taken Unknown] Allergy/AdvReac Type Severity Reaction Status Date / Time lovastatin Allergy Intermediate Other Verified 12/22/23 13:22 rosuvastatin [From Crestor] Allergy Intermediate Other Verified 12/22/23 13:22 ticagrelor [From Brilinta] Allergy Intermediate Shortness Verified 12/22/23 13:22 of breath hydrocodone Allergy Hives Verified 12/22/23 13:22 cephalexin monohydrate AdvReac Other Verified 12/22/23 13:22 [From Keflex] pravastatin AdvReac myalgias Verified 12/22/23 13:22 Family History Mother Cancer pancreatic cancer Father , CT age 20's (premature CAD), 3 vessel CABG (more content not included)... Normal [facility] Chest 1 View (Portable)on Chest 1 View (Portable) [facility] Imaging Services [address] [place] [address] Chest 1 View (Portable) MR#: [id number] Acct: [id number] Name: DOM AVILA Rep #: [id number] : 1955 F 68 From: Reji xiong MD PCP: Dr. Clifton Hung MD Status: REG ER Study: Chest 1 View (Portable) Date of Exam: 12/22/23 Exam# [id number] Ordering Dr: Caro Pedro MD [id number] STUDY: X-RAY CHEST REASON FOR EXAM: Female, 68 years old. Cough TECHNIQUE: Single AP portable view of the chest. COMPARISON: Comparison is made with prior study dated September 11, 2023. FINDINGS: The lungs are clear and expanded. There is no demonstrated pleural abnormality. Normal size heart. Normal mediastinum and natalya. Normal visualized pulmonary arteries. Normal visualized aortic arch and descending thoracic aorta. There are diffuse degenerative changes of the visualized thoracic spine. Normal visualized ribs, clavicles, and shoulders. There is no demonstrated abnormality of the visualized soft tissue structures of the upper abdomen. RAD/Chest 1 View (Portable) IMPRESSION: No acute abnormality is seen. Electronically Signed: Reji Bella MD at 14:33 EST Reading Location ID and State: [facility] / [place] , Service support , CC: Dr. Clifton Hung MD; Dr. Caro Pedro MD Color Checker Roving Or Yarn: Signed Normal [facility] Emergency Department Summary on 12-22-2023 Emergency Department Summary [facility] Medical Records Department [address] [address] Emergency Department Summary 12/22/23 MR#: [id number] Acct: [id number] Name: DOM AVILA Rep #: [id number] : 1955 68 From: Caro Pedro MD PCP: Dr. Clifton Hung MD Status:REG ER Location: ED HPI History of Present Illness Chief Complaint: General Illness Informant: patient Onset/Context/Timing Onset: Days (3 days) Context: Gradual Onset Narrative Narrative: Patient presents with cough, congestion, fever over the past 3 days. She states he is not really bringing up much sputum. Her temperature has been between 102 and 103. She is been taking Tylenol and ibuprofen when needed. She reports some mild diarrhea but no nausea or vomiting. 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 Breast cancer, left Cardiology follow-up encounter Cardiovascular stress test abnormal Chest pain Colon polyp COVID-19 ( 10/2022) CPAP (continuous positive airway pressure) dependence Dietary restriction Discoloration of skin Easy bruising Encounter for long-term (current) use of other medications Epigastric pain Excessive bleeding Former smoker Gastric reflux Heart palpitations History of pain when walking History of TIA (transient ischemic attack) Hx of cardiovascular stress test ( 09/13/18) Hx of echocardiogram ( 06/30/17) Hx of gastritis IBS (irritable bowel syndrome) Injury of head and neck Leg cramps Loss of hearing Menieres disease Mixed hyperlipidemia Nausea Presence of stent in coronary artery ( 01/05/17) Psoriasis Rosacea Shortness of breath on exertion Vitamin D deficiency Wears glasses Home Medications Lenkaacidoph, calebi,B. lactis 10 billion cell capsule 1 ea PO QHS 09/23/16 [History Last Taken 06/28/17] cholecalciferol (vitamin D3) 50 mcg (2,000 unit) capsule 4,000 unit PO DAILY 08/22/18 [History Last Taken Unknown] montelukast 10 mg tablet 10 mg PO QPM 08/22/18 [History Last Taken Unknown] coenzyme Q10 100 mg capsule 100 mg PO DAILY 08/23/19 [History Last Taken Unknown] metformin 500 mg 24 hr tablet,extended release (gastric retention) 1,000 mg PO BID 11/24/21 [History Last Taken Unknown] potassium chloride 10 mEq tablet,extended release 20 meq PO BID 11/24/21 [History Last Taken Unknown] tamoxifen 20 mg tablet 20 mg PO DAILY 11/24/21 [History Last Taken Unknown] doxycycline monohydrate 50 mg capsule 50 mg PO DAILY PRN Skin 05/28/22 [History Last Taken Unknown] nitroglycerin 0.4 mg sublingual tablet 0.4 mg sublingual Q5M PRN Chest Pain #25 tabs 05/28/22 [Rx Last Taken Unknown] clobetasol 0.05 % topical gel 1 applic topical DAILY PRN Skin Cleansing 09/03/22 [History Last Taken Unknown] magnesium oxide 500 mg PO DAILY 09/03/22 [History Last Taken Unknown] omeprazole 40 mg capsule,delayed release 40 mg PO DAILY 11/30/22 [History Last Taken Unknown] uwhqhb-wpiwqfkx-uvudsq e 36,000-114,000-180,000 unit capsule,delay rel (Creon) See Rx Instructions PO .COMPLEX #56 caps 03/04/23 [Rx Last Taken Unknown] metoprolol tartrate 25 mg tablet 25 mg PO BID #180 tabs 03/15/23 [Rx Last Taken Unknown] Handicap Placard #1 ea 08/30/23 [Rx Last Taken Unknown] calcium citrate 315 mg calcium-vitamin D3 6.25 mcg (250 unit) tablet 2 tab PO DAILY 08/30/23 [History Last Taken Unknown] ezetimibe 10 mg tablet (Zetia) 10 mg PO DAILY 08/30/23 [History Last Taken Unknown] ketoconazole 2 % shampoo 1 applic topical QODAY 08/30/23 [History Last Taken Unknown] lisinopril 5 mg tablet 30 mg PO BID This is a dose increase 08/30/23 [History Last Taken Unknown] lactulose 10 gram/15 mL oral solution 15 ml PO DAILY PRN constipation #473 mL 11/03/23 [Rx Last Taken Unknown] Allergy/AdvReac Type Severity Reaction Status Date / Time lovastatin Allergy Intermediate Other Verified 12/22/23 13:22 rosuvastatin [From Crestor] Allergy Intermediate Other Verified 12/22/23 13:22 ticagrelor [From Brilinta] Allergy Intermediate Shortness Verified 12/22/23 13:22 of breath hydrocodone Allergy Hives Verified 12/22/23 13:22 cephalexin monohydrate AdvReac Other Verified 12/22/23 13:22 [From Keflex] pravastatin AdvReac myalgias Verified 12/22/23 13:22 Family History Mother Cancer pancreatic cancer Father , CT age 20's (premature CAD), 3 vessel CABG, hyperlipidemia, CHf Myocardial infarction CAD (coronary artery disease) Brother Cancer lung cancer Surgical History Ductal carcinoma in situ (DCIS) of left breast History of bunionectomy of left great toe History of cardiac catheterization ( 10/12/18) History of carpal tunne (more content not included)... Normal [facility] Laboratory - Microbiology an d Antimicrobial susceptibilityOrdered By: Caro Pedro on 12-22-2023 SARS-CoV-2 (COVID-19) RNA MICHAEL+probe Ql (Unsp spec) Influenzae A [facility] M100.678on 12-22-2023 M100.678 RESULTS CALLED TO Vel TAYLOR 12/22/23 1455 [place] Lepe. REPORT READ BACK BY SANDRA. COV + FLU + RSV PCR Copy of report sent to Infection Control Printer [id number] 12/22/23 1468 RADHA. COV + FLU + RSV PCR Normal Reference Range = Negative COV + FLU + RSV PCR GeneXpert Instrument, PCR method SARS-CoV-2 (COVID 19) Negative INFLUENZA A Positive A INFLUENZA A Positive A RSV PCR Negative FLUA Normal [facility] Comment on above: Performed By: #### M 100.678 ####[facility] [id number] [place], [place], [address] Carbohydrate AG 19-9on 12-10 CA 19-9 38 U/mL High 0-35 [facility] Comment on above: Result Comment: [employer] Electrochemiluminescence Immunoassay (ECLIA) Values obtained with different assay methods or kits cannot be used interchangeably. Results cannot be interpreted as absolute evidence of the presence or absence of malignant disease. Performed at: [address] [id number] [employer] Worker: Timoteo Berumen PhD, Phone: [phone] Performed By: #### L 3100.5020, L501.2450, L501.2400 ####[facility] [id number] [place], [address] Amylaseon 12-08-2023 SIMA 59 U/L Normal - [facility] Comment on above: Performed By: #### L 3100.5020, L501.2450, L501.2400 ####[facility] [id number] [place], [place], [address] Basophil percentageOrdered B y: Carson Alcantar on 12-08-2023 Amylase [Catalytic activity/Vol] 59 U/L -115 [facility] Laboratory - Chemistry and C hemistry - challengeOrdered By: Carson Alcantar on 12-08-2023 Lipase [Catalytic activity/Vol] 124 U/L [facility] Comment on above: Please note:LIPASE r evised reference range effective 23. New Lipase methodology. Expected to produce lower values than the previous assay method. NEW Reference Range: 13 - 75 U/L Lipaseon 12-08-2023 Lipase [Catalytic activity/Vol] 124 U/L High [facility] Comment on above: Result Comment: Rom mendosa note: LIPASE revised reference range effective 23. New Lipase methodology. Expected to produce lower values than the previous assay method. NEW Reference Range: 13 - 75 U/L Performed By: #### L 3100.5020, L501.2450, L501.2400 ####[facility] [id number] [place], [place], [address] No Panel InformationOrdered By: Carson Alcantar on 12-08-2023 CA 19-9 Antigen 38 U/mL 0-35 [facility] Comment on above: [facility] El ectrochemiluminescence Immunoassay(ECLIA)Values obtained with different assay methods or kits cannotbe used interchangeably. Results cannot be interpreted asabsolute evidence of the presence or absence of malignantdisease.Performed at: [facility] [address] [id number] Director: Timoteo Berumen PhD, Phone: [phone] Gastroenterology Visit Repor ton 12-06-2023 Gastroenterology Visit Report [facility] Gastroenterology [address] [facility] [place] [address] OFFICE VISIT Date of Service: 12/06/23 MR#: [id number] Acct: [id number] Name: DOM AVILA Rep #: [id number] : 1955 Provider: Carson Alcantar DO Age/Sex: 68/F Location: [facility] Status: Signed Intake Vital Signs 04/01/23 13:53 04/20/23 10:38 09/11/23 14:30 Height 5 ft 3 in 5 ft 3 in 5 ft 3 in Intake Visit Reasons: 6 MO FU Allergies lovastatin Allergy (Intermediate, Verified 09/11/23 14:30) Other rosuvastatin [From Crestor] Allergy (Intermediate, Verified 09/11/23 14:30) Other ticagrelor [From Brilinta] Allergy (Intermediate, Verified 09/11/23 14:30) Shortness of breath hydrocodone Allergy (Verified 09/11/23 14:30) Hives cephalexin monohydrate [From Keflex] Adverse Reaction (Verified 09/11/23 14:30) Other pravastatin Adverse Reaction (Verified 09/11/23 14:30) myalgias PFSH Medical History (Updated 09/11/23 @ 15:55 by NEGRO Herndon) Anxiety Arthritis 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 Breast cancer, left Cardiology follow-up encounter Cardiovascular stress test abnormal Chest pain Colon polyp COVID-19 ( 10/2022) CPAP (continuous positive airway pressure) dependence Dietary restriction Discoloration of skin Easy bruising Encounter for long-term (current) use of other medications Epigastric pain Excessive bleeding Former smoker Gastric reflux Heart palpitations History of pain when walking History of TIA (transient ischemic attack) Hx of cardiovascular stress test ( 09/13/18) Hx of echocardiogram ( 06/30/17) Hx of gastritis IBS (irritable bowel syndrome) Injury of head and neck Leg cramps Loss of hearing Menieres disease Mixed hyperlipidemia Nausea Presence of stent in coronary artery ( 01/05/17) Psoriasis Rosacea Shortness of breath on exertion Vitamin D deficiency Wears glasses Surgical History Ductal carcinoma in situ (DCIS) of left breast History of bunionectomy of left great toe History of cardiac catheterization ( 10/12/18) History of carpal tunnel release of both wrists History of section History of cholecystectomy History of coronary artery stent placement ( 12/30/16) History of detached retina repair ( 04/2023) History of hysterectomy History of lumpectomy of left breast History of parathyroidectomy Hx of foot surgery Hx of release of tendon ( 01/13/23) Status post excision of lipoma ( 11/2018) Status post lumbar spine operative procedure for decompression of spinal cord Status post trigger finger release Family History Mother Cancer pancreatic cancer Father , CT age 20's (premature CAD), 3 vessel CABG, [...] do you feel safe at home: Yes HPI HPI Details: DOM AVILA, is a 68 F who presents to the office today for GI Hx fatty liver, IBS, colon polyp, gastric reflux, gastritis. PMH vertigo; PVC, CAD s/p stenting, HTN, hyperlipidemia; breast cancer s/p surgery/radiation 2020; DMII; TIA without deficit; psoriasis PSH lumpectomy; parathyroidectomy; cholecystectomy. FH mother pancreatic cancer, age 57 Prior workup: Biochemical [facility] CBC (hgb 13.5, platelet 252), amylase 74, lipase H133. US RUQ 11.2.[address] abd/pel 11.8.22 hepatic lesion, subcentimeter hypodense, too small to characterize. *BGI established 1.10.30 with referral from PCP. Nausea and reflux have been an issue for several months. Dicyclomine and famotidine PRN. Biochemical amylase, CA19-9, CMP, ESR, CBC, celiac, LDH without pertinent abnormality. LFT AST L13-ALT 21-AP L40, CRP H8.32, lipase H490 Stool studies fecal fat, elastase WNL EGD/colonoscopy 1.. EGD irregular Zline 37cm; esophagitis without metaplasia; gastritis; duodenum without abnormality. H.Pylori negative. Colonoscopy diverticulosis; congested mucosa RS colon through hepatic flexure. No pathologic changes. Contact 3.01.28 with continued constipation. Start lactulose. OV 5..23 continue Creon. Recommend ongoing surveillance for pancreatic cancer due to FH OV 1..24 Lactulose PRN continues and with this she is able to have a BM most days of the week. Otherwise feels well. Exam (more content not included)... Normal [facility] Influenza virus A and B and SARS-CoV-2 (COVID-19) Ag panel - Upper respiratory specimOrdered By: Ron Alan on 09-11-2023 SARS-CoV-2 & FLU Antigen (Rapid) SARS-CoV-2 (COVID 19) [facility] UA DIP, URINE (POC)on 2022 BILIRUBIN UA (POCT) Negative Negative [facility] CLARITY UA (POCT) Cloudy [facility] COLOR UA (POCT) Yellow [facility] GLUCOSE UA (POCT) Negative Negative mg/dL [facility] Hemoglobin Ql (U) Trace-intact Abnormal Negative [facility] KETONE UA (POCT) Negative Negative mg/dL [facility] LEUKOCYTES UA (POCT) Moderate Abnormal Negative [facility] NITRITE UA (POCT) Negative Negative [facility] PH UA (POCT) 5.5 4.5 - 8.0 [facility] Protein Ql (U) Negative Negative mg/dL [facility] SPECIFIC GRAVITY UA (POCT) 1.015 1.005 - 1.030 [facility] UROBILINOGEN UA (POCT) 0.2 E.U./dL Normal E.U./ dL [facility] GUILLERMINA SCREENINGon 02-24-2023 [facility] CORONAVIRUS PCR - [facility] 01-12-2023 SARS-CoV-2 (COVID-19) RNA MICHAEL+probe Ql (Unsp spec) Negative Normal NORMAL: NEGATIVE [facility] Comment on above: Performed By: #### [id number] #### [facility],[address] [place] [address] SEND TO IC? NO Normal [facility] Comment on above: Result Comment: RESU LTS FAXED TO INFECTION CONTROL. SARS-CoV-2 THIS TEST IS BEING USED UNDER THE FDA EUA PROCEDURE. THIS ASSAY HAS BEEN VALIDATED IN THE [facility] FOR USE WITH NASOPHARYNGEAL SPECIMENS IN [facility]. INTERPRETIVE DATA LABORATORY TEST RESULTS SHOULD ALWAYS BE CONSIDERED IN THE CONTEXT OF CLINICAL OBSERVATIONS AND EPIDEMIOLOGICAL DATA IN MAKING FINAL DIAGNOSIS AND PATIENT MANAGEMENT DECISIONS. PATIENT MANAGEMENT SHOULD FOLLOW CURRENT CDC GUIDELINES. A POSITIVE TEST RESULT FOR COVID-19 INDICATES THAT RNA FROM SARS-CoV-2 WAS DETECTED, AND THE PATIENT IS INFECTED WITH THE VIRUS AND PRESUMED TO BE CONTAGIOUS. A NEGATIVE TEST RESULT FOR THIS TEST MEANS THAT SARS-CoV-2 RNA WAS NOT PRESENT IN THE SPECIMEN ABOVE THE LIMIT OF DETECTION. HOWEVER, A NEGATVIE RESULT DOES NOT RULE OUT COVID-19 AND SHOULD NOT BE USED THE SOLE BASIS FOR TREATMENT OR PATIENT MANAGEMENT DECISIONS. A NEGATIVE RESULT DOES NOT EXCLUDE THE POSSIBILITY OF COVID-19. WHEN DIAGNOSTIC TESTING IS NEGATIVE, THE POSSIBLILTY OF A FALSE NEGATIVE RESULT SHOULD BE CONSIDERED IN THE CONTEXT OF A PATIENT'S RECENT EXPOSURES AND THE PRESENCE OF CLINICAL SIGNS AND SYMPTOMS CONSISTENT WITH COVID-19. THE POSSIBILITY OF A FALSE NEGATIVE RESULT SHOULD ESPECIALLY BE CONSIDERED IF THE PATIENT'S RECENT EXPOSURES OR CLINICAL PRESENTATION INDICATE THAT COVID-19 IS LIKELY, AND DIAGNOSTIC TESTS FOR OTHER CAUSES OF ILLNESS (e.g., OTHER RESPIRATORY ILLNESS) ARE NEGATIVE. IF COVID-19 IS STILL SUSPECTED BASED ON EXPOSURE HISTORY TOGETHER WITH OTHER CLINICAL FINDINGS, RE-TESTED SHOULD BE CONSIDERED BY HEALTHCARE PROVIDERS IN CONSULTATION WITH PUBLIC HEALTH AUTHORITIES. Performed By: #### 2 [id number] #### [facility],[address] [id number] Glucose Glucometer (BldC) [M ass/Vol]Ordered By: Carson Alcantar on 12-01-2022 Glucose [Mass/Vol] 192 mg/dL 74-106 [facility] Comment on above: MANAGEMENT OF PATIEN T CARE PER NURSING PROTOCOL CT ABD/PEL W IVCONon 023 [facility] No Panel InformationOrdered By: Karin Coles on 11-23-2022 Stool Neutral Fats Increased . [facility] Comment on above: Normal (<60 Droplets /HPF) Stool Pancreatic Elastase > 500 >200 [facility] Comment on above: Result Units: ug [address] st./g Severe Pancreatic Insufficiency: <100 Moderate Pancreatic Insufficiency: 100 - 200 Normal: >200Performed at: - [facility] [address] [id number] Director: Benson Osei MD, Phone: [phone] Qualitative fecal fat or lip idsOrdered By: Karin Coles on 11-23-2022 Fat Ql (Stl) Normal . [facility] Comment on above: Normal (<100 Droplet s/HPF)Performed at: - [facility] [address] [id number] Director: Timoteo Berumen PhD, Phone: [phone] Absolute lymphocyte countOrd ered By: Karin Coles on 11-19-2022 Lymphocytes Auto (Unsp spec) [#/Vol] 1.59 10*3/uL 0.83-4.51 [facility] Basophil percentageOrdered B y: Karin Coles on 11-19-2022 Amylase [Catalytic activity/Vol] 58 U/L 25-115 [facility] Basophils/100 WBC (Bld) 0.5 % 0-1 [facility] Bilirubin [Mass/Vol] 0.30 mg/dL 0.20-1.00 [facility] Comment on above: For patients on eltr ombopag therapy, use of Dimension [place] TBIL is not recommended. Chloride [Moles/Vol] 103 mmol/L 98-107 [facility] Eosinophils/100 WBC (Bld) 1.6 % 0-5 [facility] Glucose [Mass/Vol] 193 mg/dL 74-106 [facility] Comment on above: Fasting Glucose resu lt greater than or equal to 126 mg/dL suggests DIABETES MELLITUS per A.D.A. criteria. LDH [Catalytic activity/Vol] 169 U/L 84-246 [facility] Neutrophils (Bld) [#/Vol] 3.5 10*3/uL 2.0-7.7 [facility] Neutrophils/100 WBC (Bld) 61.4 % 47-70 [facility] Potassium [Moles/Vol] 4.1 mmol/L 3.5-5.[address] [facility] Protein [Mass/Vol] 6.9 g/dL 6.4-8.2 [facility] Sodium [Moles/Vol] 139 mmol/L 136-145 [facility] WBC (Bld) [#/Vol] 5.7 10*3/uL 4.4-11.0 [facility] Blood erythrocytes count (nu mber/volume)Ordered By: Karin Coles on 11-19-2022 RBC (Bld) [#/Vol] 3.99 10*6/uL 4.2-5.4 [facility] Blood hemoglobin measurement (mass/volume)Ordered By: Karin Coles on 11-19-2022 Hemoglobin (Bld) [Mass/Vol] 12.5 g/dL 12.0-15.0 [facility] Blood lymphocytes/100 leukoc ytesOrdered By: Karin Coles on 11-19-2022 Lymphocytes/100 WBC (Bld) 27.9 % 19-41 [facility] Blood monocytes/100 leukocyt esOrdered By: Karin Coles on 11-19-2022 Monocytes/100 WBC (Bld) 8.2 % 0-10 [facility] Blood platelet mean volumeOr dered By: Karin Coles on 11-19-2022 Platelet mean volume (Bld) [Entitic vol] 9.7 fL 6.2-12.0 [facility] Determination of erythrocyte mean corpuscular volume (MCV)Ordered By: Karin Coles on 11-19-2022 MCV (RBC) [Entitic vol] 94.5 fL 81-99 [facility] Erythrocyte sedimentation ra teOrdered By: Karin Coles on 11-19-2022 ESR (Bld) [Velocity] 7 mm/h 0-30 [facility] Hematocrit Auto (Bld) [Volum e fraction]Ordered By: Karin Coles on 11-19-2022 Hematocrit (Bld) [Volume fraction] 37.7 % 37-47 [facility] Laboratory - Chemistry and C hemistry - challengeOrdered By: Karin Coles on 11-19-2022 ALP [Catalytic activity/Vol] 40 U/L 45-117 [facility] ALT [Catalytic activity/Vol] 21 U/L 13-56 [facility] CO2 [Moles/Vol] 29.0 mmol/L 21.0-32.0 [facility] Globulin (S) [Mass/Vol] 3.5 g/dL 2.2-4.2 [facility] Lipase [Catalytic activity/Vol] 490 U/L 73-393 [facility] Urea nitrogen/Creatinine [Mass ratio] 19.2 mg/mg 10-20 [facility] Laboratory - Hematology and Cell countsOrdered By: Karin Coles on 11-19-2022 Erythrocyte distribution width (RBC) [Entitic vol] 46.2 fL 35.1-43.9 [facility] Erythrocyte distribution width (RBC) [Ratio] 13.4 % 11.6-14.6 [facility] Immature granulocytes/100 WBC (Bld) 0.400 % 0.0-0.9 [facility] Comment on above: IG% - Immature Granu locytes (promyelocytes, myelocytes and metamyelocytes) > 1% indicates that a LEFT SHIFT is Present. MCH (RBC) [Entitic mass] 31.3 pg 27.0-32.0 [facility] Nucleated RBC/100 WBC (Bld) [Ratio] 0 % 0-5 [facility] MCHC Auto (RBC) [Mass/Vol]Or dered By: Karin Coles on 11-19-2022 MCHC (RBC) [Mass/Vol] 33.2 g/dL 32-[address] [facility] No Panel InformationOrdered By: Karin Coles on 11-19-2022 CA 19-9 Antigen 35 U/mL 0-35 [facility] Comment on above: [facility] El ectrochemiluminescence Immunoassay(ECLIA)Values obtained with different assay methods or kits cannotbe used interchangeably. Results cannot be interpreted asabsolute evidence of the presence or absence of malignantdisease.Performed at: [facility] [id number] Director: Timoteo Berumen PhD, Phone: [phone] CA 19-9 Antigen Serial Monitoring Not Reportable [facility] Endomysial IgA Antibody Negative Negative [facility] Estimated GFR (MDRD) Amer 95 mL/min >60 [facility] Comment on above: GFR Calc Estimated GFR (MDRD) Non-Af Amer 79 mL/min >60 [facility] Comment on above: Non- GFR Calc Platelets bldOrdered By: Jacquelyn Coles on 11-19-2022 Platelets (Bld) [#/Vol] 218 10*3/uL 150-450 [facility] Serum IgA measurement (units /volume)Ordered By: Karin Coles on 11-19-2022 IgA Qn (S) 160 mg/dL 87-352 [facility] Serum or plasma C reactive p rotein measurement (mass/volume)Ordered By: Karin Coles on 11-19-2022 CRP [Mass/Vol] 8.32 mg/L 0.0-3.0 [facility] Comment on above: C-Reactive Protein ( CRP) provides useful information for thediagnosis, therapy and monitoring of inflammatory processesand associated diseases. For the evaluation of Relative Riskfor Cardiovascular Disease, a High Sensitivity CRP (HSCRP)should be ordered. Serum or plasma albumin lucio urement (mass/volume)Ordered By: Karin Coles on 11-19-2022 Albumin [Mass/Vol] 3.4 g/dL 3.2-5.0 [facility] Serum or plasma albumin/glob ulin mass ratioOrdered By: Karin Coles on 11-19-2022 Albumin/Globulin [Mass ratio] 1.0 {ratio} 0.9-2.4 [facility] Serum or plasma calcium lucio urement (mass/volume)Ordered By: Karin Coles on 11-19-2022 Calcium [Mass/Vol] 8.9 mg/dL 8.5-10.1 [facility] Serum or plasma creatinine m easurement (mass/volume)Ordered By: Karin Coles on 11-19-2022 Creatinine [Mass/Vol] 0.78 mg/dL 0.55-1.[address] [facility] Comment on above: The validity of the calculated GFR & GFRAA in patients over 70 years has not been determined. Clinical correlation is essential. Serum or plasma urea nitroge n measurement (mass/volume)Ordered By: Karin Coles on 11-19-2022 Urea nitrogen [Mass/Vol] 15 mg/dL 7-18 [facility] Serum tissue transglutaminas e IgA antibody assay (units/volume)Ordered By: Karin Coles on 11-19-2022 tTG IgA Qn (S) <2 U/mL 0-3 [facility] Comment on above: Negative 0 - 3 Weak Positive 4 - 10 Positive >10 Tissue Transglutaminase (tTG) has been identified as the endomysial antigen. Studies have demonstr- ated that endomysial IgA antibodies have over 99% specificity for gluten sensitive enteropathy. Thin prep Papanicolaou smear with manual screeningOrdered By: Karin Coles on 11-19-2022 Thin prep Papanicolaou smear with manual screening 13 U/L 15-37 [facility] Thin prep Papanicolaou smear with manual screening 7 5-15 [facility] STREP A MOLECULAR (POC)on Procedural Control Valid [facility] Strep A (POCT) Negative Negative [facility] Influenza virus A and B RNA and SARS-CoV-2 (COVID-19) N gene panel MICHAEL+probe (Resp)on 12-27-2022 FLUAV RNA MICHAEL+probe Ql (Unsp spec) Negative Negative for Influenza A by RT-PCR [facility] FLUBV RNA MICHAEL+probe Ql (Unsp spec) Negative Negative for Influenza B by RT-PCR [facility] SARS-CoV-2 (COVID-19) RNA MICHAEL+probe Ql (Resp) SARS-CoV-2 (Agent of COVID-19) Detected by RT-PCR or equivalent method. Abnormal Not Detected [facility] GUILLERMINA DIAG W ANGELA LTon 022 [facility] US ABD RT UPPER QUADRANTon 1 11-09-2021 [facility] CREATININE BLDon 08-28-2022 Creatinine [Mass/Vol] 0.82 mg/dL 0.58 - 0.96 mg/dL [facility] Estimated Glomerular Filtration Rate 79 mL/min/1.73m >=60 mL/min/1.73m [facility] BACTERIAL VAGINOSIS AMPLIFIC ATIONon 07-09-2022 Lactobacillus crispatus+gasseri+deyanira enii + Gardnerella vaginalis + Atopobium vaginae rRNA MICHAEL+probe Ql (Vag fld) Negative Negative for bacterial vaginosis [facility] CHINO / TRICHOMONAS AMPLIF ICATIONon 07-09-2022 C. glabrata RNA MICHAEL+probe Ql (Vag fld) Negative Negative for [place] glabrata [facility] Chino albicans, C. dubliniensis, C. parapsilosis, and C. tropicalis RNA MICHAEL+probe Ql (Vag fld) Negative Negative for [place] species [facility] T. vaginalis DNA MICHAEL+probe Ql (Unsp spec) Negative Negative for Trichomonas vaginalis by amplification [facility] UA DIP, URINE (POC)on 2021 BILIRUBIN UA (POCT) Negative Negative [facility] CLARITY UA (POCT) Clear [facility] COLOR UA (POCT) Yellow [facility] GLUCOSE UA (POCT) Negative Negative mg/dL [facility] HEMOGLOBIN/BLOOD UA (POCT) Negative Negative [facility] KETONE UA (POCT) Negative Negative mg/dL [facility] LEUKOCYTES UA (POCT) Moderate Abnormal Negative [facility] NITRITE UA (POCT) Negative Negative [facility] PH UA (POCT) 7.0 4.5 - 8.0 [facility] Protein Ql (U) Negative Negative mg/dL [facility] SPECIFIC GRAVITY UA (POCT) 1.015 1.005 - 1.030 [facility] UROBILINOGEN UA (POCT) 0.2 E.U./dL Normal E.U./ dL [facility] Laboratory - Chemistry and C hemistry - challengeon 05-28-2022 Free T4 [Mass/Vol] 0.96 ng/dL 0.76-1.46 [facility] r [facility] Work Phone: Magnesium [Mass/Vol] 2.0 mg/dL 1.6-2.[address] [facility] Work Phone: No Panel Informationon 05-28 Thyroid Stimulating Hormone (TSH) 2.35 uIU/mL 0.358-3.74 [facility] Work Phone: GUILLERMINA SCREENINGon 02-23-2022 [facility] Office Visiton 07-22-2017 Dietary management education, guidance, and counseling (procedure) yes Invalid Interpretation Code [facility] Work Phone: [phone] Documentation of current medications (procedure) Done Invalid Interpretation Code [facility] Work Phone: [phone] Fall risk assessment No Invalid Interpretation Code [facility] Work Phone: [phone]) Protein mass conc Done Invalid Interpretation Code [facility] [employer] Work Phone: [phone] Tobacco smoking status NHIS Former smoker Invalid Interpretation Code [facility] [employer] Work Phone: [phone] Tobacco use [facility] Former smoker Invalid Interpretation Code [facility] Work Phone: [phone] Replaced Document: [place] E CG Observationson 07-22-2017 EKG QRS axis -20 deg Invalid Interpretation Code [facility] [employer] Work Phone: [phone] electrocardiogram interpretation Sinus Rhythm - Nonspecific T-abnormality. ABNORMAL Invalid Interpretation Code [facility] [employer] Work Phone: [phone] GE use only - for LinkLogic import when terms are not otherwise specified 398 ms Invalid Interpretation Code [facility] [employer] Work Phone: [phone] Interpretation Sinus Rhythm - Nonspecific T-abnormality. ABNORMAL Invalid Interpretation Code [facility] [employer] Work Phone: [phone] P [place] 35 deg Invalid Interpretation Code [facility] Work Phone: P wave axis, electrocardiogram 35 deg Invalid Interpretation Code [facility] Work Phone: [phone] LA Interval 142 ms Invalid Interpretation Code [facility] Work Phone: [phone] LA interval, electrocardiogram 142 ms Invalid Interpretation Code [facility] Work Phone: [phone] Pulse (Heart Rate) 60 /min Invalid Interpretation Code [facility] Work Phone: [phone] QRS axis, electrocardiogram -20 deg Invalid Interpretation Code [facility] Work Phone: [phone] QRS Duration 104 ms Invalid Interpretation Code [facility] Work Phone: [phone] QRS duration, electrocardiogram 104 ms Invalid Interpretation Code [facility] Work Phone: [phone] QT Interval new path ms Invalid Interpretation Code [facility] Work Phone: [phone] QT interval, electrocardiogram new path ms Invalid Interpretation Code [facility] Work Phone: [phone] QTc Suarez 398 ms Invalid Interpretation Code [facility] Work Phone: [phone] T [place] -1 deg Invalid Interpretation Code [facility] Work Phone: [phone] T wave axis, electrocardiogram -1 deg Invalid Interpretation Code [facility] Work Phone: [phone] Clinical Lists Update: Pre06-30-2017 Left ventricular Ejection fraction 65 % Invalid Interpretation Code [facility] Phone: [phone] Office Visiton 04-23-2017 Dietary management education, guidance, and counseling (procedure) yes Invalid Interpretation Code [facility] Work Phone: [phone] Documentation of current medications (procedure) Done Invalid Interpretation Code [facility] Work Phone: [phone] Fall risk assessment No Invalid Interpretation Code [facility] Phone: [phone] Protein mass conc Done [facility] Work Phone: [phone] Clinical Lists Update: Pre04-21-2017 Left ventricular Ejection fraction 60 % [facility] Work Phone: [phone] External Other: Preferred Me thod of [employer] 01-21-2017 GE use only - for LinkLogic import when terms are not otherwise specified secmsg Invalid Interpretation Code [employer] Work Phone: [phone] METH[employer] secmsg [facility] Work Phone: [phone] Office Visit: [facility] 01-21-20 17 Documentation of current medications (procedure) Done Invalid Interpretation Code [employer] Work Phone: [phone] Fall risk assessment No Invalid Interpretation Code [facility] Work Phone: [phone] Protein mass conc Done [facility] Work Phone: [phone] Replaced Document: Amber Peraltaon 01-20-2017 EKG QRS axis -18 deg [facility] Work Phone: [phone] electrocardiogram interpretation Sinus Rhythm - Nonspecific T-abnormality. ABNORMAL Invalid Interpretation Code [employer] Work Phone: [phone] Interpretation Sinus Rhythm - Nonspecific T-abnormality. ABNORMAL [facility] Work Phone: [phone] P [place] 43 deg [facility] Work Phone: [phone] P wave axis, electrocardiogram 43 deg Invalid Interpretation Code [employer] Work Phone: LA Interval 148 ms [facility] Work Phone: [phone] LA interval, electrocardiogram 148 ms Invalid Interpretation Code [employer] Work Phone: [phone] Pulse (Heart Rate) 72 /min Invalid Interpretation Code [employer] Work Phone: [phone] QRS axis, electrocardiogram -18 deg Invalid Interpretation Code [employer] Work Phone: [phone] QRS Duration 106 ms [facility] Work Phone: [phone] QRS duration, electrocardiogram 106 ms Invalid Interpretation Code [employer] Work Phone: [phone] QT Interval new path ms [facility] Work Phone: [phone] QT interval, electrocardiogram new path ms Invalid Interpretation Code [employer] Work Phone: [phone] T [place] -1 deg [facility] [employer] Work Phone: [phone] T wave axis, electrocardiogram -1 deg Invalid Interpretation Code [employer] Work Phone: Clinical 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 Left ventricular Ejection fraction 65 % [facility] Work Phone: [phone] Tobacco smoking status NHIS Former smoker [facility] Work Phone: [phone] Tobacco use [facility] Former smoker Invalid Interpretation Code [place] [email or web address]: Chart Maintenanceon 01-02-20 17 HbA1c 7.2 % Invalid Interpretation Code [place] [facility] [facility] [employer] [facility] Work Phone: Vital Signs Date Time Vital Sign Value Performing Clinician Facility 04-24-2025 07:44-0400 Body mass index (BMI) [Ratio] 24.92 kg/m2 Francine Madrid 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 Work Phone: [facility] 04-24-2025 07:44-0400 Body weight 63 kg Francine Madrid APRN.REPA[employer]ER [employer]ISTANCE [employer]ELD[employer]ACH[employer]ES Work Phone: [facility] 04-24-2025 07:44-0400 Diastolic blood pressure 76 mm[Hg] Francine Madrid 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 Work Phone: [facility] 04-24-2025 07:44-0400 Heart rate 68 /min Francine Madrid 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 Work Phone: [facility] 04-24-2025 07:44-0400 Systolic blood pressure 138 mm[Hg] Francine Madrid FIELD [employer] FARM WORKER.ELIZABETH Work Phone: [facility] 04-19-2025 08:46-0400 Body height 159 cm Cherise Sifuentes PA-C Work Phone: [facility] 04-19-2025 08:46-0400 Body mass index (BMI) [Ratio] 25.66 kg/m2 Cherise Sifuentes PA-C Work Phone: [facility] 04-19-2025 08:46-0400 Body temperature 97.2 [degF] Cherise Sifuentes PA-C Work Phone: [facility] 04-19-2025 08:46-0400 Body weight 64.86 kg Cherise Sifuentes PA-C Work Phone: [facility] 04-19-2025 08:46-0400 Diastolic blood pressure 72 mm[Hg] Cherise MAYS-C Work Phone: [facility] 04-19-2025 08:46-0400 Heart rate 58 /min Cherise Sifuentes PA-C Work Phone: [facility] 04-19-2025 08:46-0400 Respiratory rate 16 /min Cherise Sifuentes PA-C Work Phone: [facility] 04-19-2025 08:46-0400 SaO2% (BldA) [Mass fraction] 98 % Cherise Sifuentes PA-C Work Phone: [facility] 04-19-2025 08:46-0400 Systolic blood pressure 136 mm[Hg] Cherise Sifuentes PA-C Work Phone: [facility] 04-09-2025 09:12-0400 Body height 159 cm Sima Dumont APRN.REPA[employer]ER [employer]IST[employer]ACH[employer]ES Work Phone: [facility] 04-09-2025 09:12-0400 Body mass index (BMI) [Ratio] 25.66 kg/m2 Sima Dumont APRN.REPA[employer]ER [employer] Work Phone: [facility] 04-09-2025 09:12-0400 Body weight 64.86 kg Sima Dumont APRN.REPA[employer]ER [employer] Work Phone: [facility] 04-09-2025 09:12-0400 Diastolic blood pressure 90 mm[Hg] Sima Dumont APRN.[employer]PA[employer]ER [employer] Work Phone: [facility] 04-09-2025 09:12-0400 Systolic blood pressure 156 mm[Hg] Sima Dumont APRN.[employer]ER [employer] Work Phone: [facility] 03-21-2025 07:56-0400 Body mass index (BMI) [Ratio] 25.46 kg/m2 Chad Mariee APRN.REPA[employer]ER [employer] Work Phone: [facility] 03-21-2025 07:56-0400 Body temperature 97.59 [degF] Chad Mariee APRN.RE[employer]ER [employer] Work Phone: [facility] 03-21-2025 07:56-0400 Body weight 65.2 kg hCad Russellenter 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 Work Phone: [facility] 03-21-2025 07:56-0400 Diastolic blood pressure 88 mm[Hg] Chad Mariee 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 Work Phone: [facility] 03-21-2025 07:56-0400 Heart rate 63 /min Chad Mariee 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 Work Phone: [facility] 03-21-2025 07:56-0400 SaO2% (BldA) [Mass fraction] 97 % [place] Mariee 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 Work Phone: [facility] 03-21-2025 07:56-0400 Systolic blood pressure 163 mm[Hg] Chad Mariee 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 Work Phone: [facility] 03-16-2025 08:39-0400 Body height 160 cm Alexa Matute MD Work Phone: [facility] 03-16-2025 08:39-0400 Body mass index (BMI) [Ratio] 25.44 kg/m2 Alexa Matute MD Work Phone: [facility] 03-16-2025 08:39-0400 Body weight 65.14 kg Alexa Matute MD Work Phone: [facility] 03-16-2025 08:39-0400 Diastolic blood pressure 90 mm[Hg] Alexa Matute MD Work Phone: [facility] 03-16-2025 08:39-0400 Heart rate 57 /min Alexa Matute MD Work Phone: [facility] 03-16-2025 08:39-0400 Respiratory rate 17 /min Alexa Matute MD Work Phone: [facility] 03-16-2025 08:39-0400 SaO2% (BldA) [Mass fraction] 99 % Alexa Matute MD Work Phone: [facility] 03-16-2025 08:39-0400 Systolic blood pressure 160 mm[Hg] Alexa Matute MD Work Phone: [facility] 02-19-2025 08:44-0400 Diastolic blood pressure 80 mm[Hg] Ori Mbanugo DO Work Phone: [facility] 02-19-2025 08:44-0400 Systolic blood pressure 164 mm[Hg] Ori Mbanugo DO Work Phone: [facility] 02-19-2025 08:41-0400 Heart rate 65 /min Ori Mbanugo DO Work Phone: [facility] 02-19-2025 08:41-0400 SaO2% (BldA) [Mass fraction] 99 % Ori Mbanugo DO Work Phone: [facility] 02-16-2025 09:08-0400 Body mass index (BMI) [Ratio] 25.59 kg/m2 Alexa Matute MD Work Phone: [facility] 02-16-2025 09:08-0400 Body temperature 97.11 [degF] Alexa Matute MD Work Phone: [facility] 02-16-2025 09:08-0400 Body weight 65.32 kg Alexa Matute MD Work Phone: [facility] 02-16-2025 09:08-0400 Diastolic blood pressure 70 mm[Hg] Alexa Matute MD Work Phone: [facility] 02-16-2025 09:08-0400 Heart rate 67 /min Alexa Matute MD Work Phone: [facility] 02-16-2025 09:08-0400 SaO2% (BldA) [Mass fraction] 98 % Alexa Matute MD Work Phone: [facility] 02-16-2025 09:08-0400 Systolic blood pressure 140 mm[Hg] Alexa Matute MD Work Phone: [facility] 12-29-2024 13:33-0500 Body mass index (BMI) [Ratio] 23.99 kg/m2 Francine Madrid APRN.REPA[employer]ER [employer] Work Phone: [facility] 12-29-2024 13:33-0500 Body weight 61.24 kg Francine Madrid APRN.REPA[employer]ER [employer] Work Phone: [facility] 12-29-2024 13:33-0500 Diastolic blood pressure 81 mm[Hg] Francine Madrid APRN.REPA[employer]ER [employer] Work Phone: [facility] 12-29-2024 13:33-0500 Heart rate 67 /min Francine Madrid APRN.REPA[employer]ER [employer] Work Phone: [facility] 12-29-2024 13:33-0500 SaO2% (BldA) [Mass fraction] 98 % Francine Madrid APRN.REPA[employer]ER [employer] Work Phone: [facility] 12-29-2024 13:33-0500 Systolic blood pressure 171 mm[Hg] Francine Madrid APRN.REPA[employer]ER [employer] Work Phone: [facility] 11-03-2024 08:39-0500 Body height 159.8 cm Alexa Matute MD Work Phone: [facility] 11-03-2024 08:39-0500 Body mass index (BMI) [Ratio] 25.23 kg/m2 Alexa Matute MD Work Phone: [facility] 11-03-2024 08:39-0500 Body temperature 96.91 [degF] Alexa Matute MD Work Phone: [facility] 11-03-2024 08:39-0500 Body weight 64.41 kg Alexa Matute MD Work Phone: [facility] 11-03-2024 08:39-0500 Diastolic blood pressure 78 mm[Hg] Alexa Matute MD Work Phone: [facility] 11-03-2024 08:39-0500 Heart rate 60 /min Alexa Matute MD Work Phone: [facility] 11-03-2024 08:39-0500 SaO2% (BldA) [Mass fraction] 98 % Alexa Matute MD Work Phone: [facility] 11-03-2024 08:39-0500 Systolic blood pressure 138 mm[Hg] Alexa Matute MD Work Phone: [facility] 10-18-2024 09:37-0500 Diastolic blood pressure 82 mm[Hg] Clifton Hung MD Work Phone: [facility] 10-18-2024 09:37-0500 Systolic blood pressure 132 mm[Hg] Clifton Hung MD Work Phone: [facility] 10-18-2024 09:19-0500 Body mass index (BMI) [Ratio] 24.88 kg/m2 Clifton Hung MD Work Phone: [facility] 10-18-2024 09:19-0500 Body temperature 97.59 [degF] Clifton Hung MD Work Phone: [facility] 10-18-2024 09:19-0500 Body weight 63.5 kg Clifton Hung MD Work Phone: [facility] 10-18-2024 09:19-0500 Heart rate 62 /min Clifton Hung MD Work Phone: [facility] 10-18-2024 09:19-0500 Respiratory rate 16 /min Clifton Hung MD Work Phone: [facility] 09-22-2024 09:08-0500 Body mass index (BMI) [Ratio] 24.77 kg/m2 Alexa Matute MD Work Phone: [facility] 09-22-2024 09:08-0500 Body weight 63.23 kg Alexa Matute MD Work Phone: [facility] 09-22-2024 09:08-0500 Diastolic blood pressure 68 mm[Hg] Alexa Matute MD Work Phone: [facility] 09-22-2024 09:08-0500 Heart rate 72 /min Alexa Matute MD Work Phone: [facility] 09-22-2024 09:08-0500 Respiratory rate 12 /min Alexa Matute MD Work Phone: [facility] 09-22-2024 09:08-0500 Systolic blood pressure 120 mm[Hg] Alexa Matute MD Work Phone: [facility] 09-14-2024 08:44-0500 Body mass index (BMI) [Ratio] 24.76 kg/m2 Chad Mariee 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 Work Phone: [facility] 09-14-2024 08:44-0500 Body temperature 97.7 [degF] Chad Mariee 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 Work Phone: [facility] 09-14-2024 08:44-0500 Body weight 63.2 kg Chad Mariee 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 Work Phone: [facility] 09-14-2024 08:44-0500 Diastolic blood pressure 83 mm[Hg] Chad Mariee 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 Work Phone: [facility] 09-14-2024 08:44-0500 Heart rate 72 /min Chad Mariee 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 Work Phone: [facility] 09-14-2024 08:44-0500 SaO2% (BldA) [Mass fraction] 96 % Chad Mariee 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 Work Phone: [facility] 09-14-2024 08:44-0500 Systolic blood pressure 155 mm[Hg] Chad Mariee 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 Work Phone: [facility] 08-04-2024 10:20-0400 Diastolic blood pressure 80 mm[Hg] Ori Lord DO Work Phone: [facility] 08-04-2024 10:20-0400 Systolic blood pressure 145 mm[Hg] Ori Quanugo DO Work Phone: [facility] 08-04-2024 10:18-0400 Body mass index (BMI) [Ratio] 24.7 kg/m2 Ori Mbanugo DO Work Phone: [facility] 08-04-2024 10:18-0400 Body weight 63.05 kg Ori Quanugo DO Work Phone: [facility] 08-04-2024 10:180400 Heart rate 63 /min Ori Quanugo DO Work Phone: [facility] 08-04-2024 10:180400 SaO2% (BldA) [Mass fraction] 99 % Ori Quanugo DO Work Phone: [facility] 07-11-2024 13:14-0400 Body height 159.8 cm Alexa Matute MD Work Phone: [facility] 07-11-2024 13:14-0400 Body mass index (BMI) [Ratio] 24.74 kg/m2 Alexa Matute MD Work Phone: [facility] 07-11-2024 13:14-0400 Body temperature 97.39 [degF] Alexa Matute MD Work Phone: [facility] 07-11-2024 13:14-0400 Body weight 63.14 kg Alexa Matute MD Work Phone: [facility] 07-11-2024 13:14-0400 Diastolic blood pressure 70 mm[Hg] Alexa Matute MD Work Phone: [facility] 07-11-2024 13:14-0400 Heart rate 68 /min Alexa Matute MD Work Phone: [facility] 07-11-2024 13:14-0400 SaO2% (BldA) [Mass fraction] 98 % Alexa Matute MD Work Phone: [facility] 07-11-2024 13:14-0400 Systolic blood pressure 118 mm[Hg] Alexa Matute MD Work Phone: [facility] 07-04-2024 10:55-0400 Diastolic blood pressure 76 mm[Hg] Ori Mbanugo DO Work Phone: [facility] 07-04-2024 10:55-0400 Heart rate 70 /min Ori Mbanugo DO Work Phone: [facility] 07-04-2024 10:55-0400 SaO2% (BldA) [Mass fraction] 99 % Ori Mbanugo DO Work Phone: [facility] 07-04-2024 10:55-0400 Systolic blood pressure 121 mm[Hg] Ori Mbanugo DO Work Phone: [facility] 05-23-2024 11:54-0400 Diastolic blood pressure 85 mm[Hg] Ori Kostas Mbanugo DO Work Phone: [facility] 05-23-2024 11:54-0400 Heart rate 72 /min Ori Kostas Mbanugo DO Work Phone: [facility] 05-23-2024 11:54-0400 Systolic blood pressure 137 mm[Hg] Ori Kostas Mbanugo DO Work Phone: [facility] 05-01-2024 12:54-0400 Body mass index (BMI) [Ratio] 26.05 kg/m2 Julio Moomaw 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 Work Phone: [facility] 05-01-2024 12:54-0400 Body temperature 97.5 [degF] Julio Moomaw 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 Work Phone: [facility] 05-01-2024 12:54-0400 Body weight 66.7 kg Julio Moomaw 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 Work Phone: [facility] 05-01-2024 12:54-0400 Diastolic blood pressure 78 mm[Hg] Julio Moomaw 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 Work Phone: [facility] 05-01-2024 12:54-0400 Heart rate 70 /min Julio Moomaw 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 Work Phone: [facility] 05-01-2024 12:54-0400 Respiratory rate 16 /min Julio Moomaw 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 Work Phone: [facility] 05-01-2024 12:54-0400 SaO2% (BldA) [Mass fraction] 98 % Julio Moomaw 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 Work Phone: [facility] 05-01-2024 12:54-0400 Systolic blood pressure 126 mm[Hg] Julio Moomaw 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 Work Phone: [facility] 04-25-2024 08:48-0400 Diastolic blood pressure 73 mm[Hg] Ori Kostas Mbanugo DO Work Phone: [facility] 04-25-2024 08:48-0400 Systolic blood pressure 156 mm[Hg] Ori Kostas Mbanugo DO Work Phone: [facility] 04-25-2024 08:02-0400 Heart rate 60 /min Ori Kostas Mbanugo DO Work Phone: [facility] 04-25-2024 08:02-0400 SaO2% (BldA) [Mass fraction] 100 % Ori Kostas Mbanugo DO Work Phone: [facility] 04-17-2024 09:34-0400 Body mass index (BMI) [Ratio] 25.87 kg/m2 Francine Madrid 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 Work Phone: [facility] 04-17-2024 09:34-0400 Body weight 66.22 kg Francine Madrid 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 Work Phone: [facility] 04-17-2024 09:34-0400 Diastolic blood pressure 76 mm[Hg] Francine Madrid 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 Work Phone: [facility] 04-17-2024 09:34-0400 Heart rate 58 /min Francine Madrid 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 Work Phone: [facility] 04-17-2024 09:34-0400 Respiratory rate 14 /min Francine Madrid 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 Work Phone: [facility] 04-17-2024 09:34-0400 Systolic blood pressure 135 mm[Hg] Francine Madrid 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 Work Phone: [facility] 03-22-2024 17:20-0400 Body mass index (BMI) [Ratio] 25.87 kg/m2 Clifton Hung MD Work Phone: [facility] 03-22-2024 17:20-0400 Body temperature 98.29 [degF] Clifton Hung MD Work Phone: [facility] 03-22-2024 17:20-0400 Body weight 66.22 kg Clifton Hung MD Work Phone: [facility] 03-22-2024 17:20-0400 Diastolic blood pressure 68 mm[Hg] Clifton Hung MD Work Phone: [facility] 03-22-2024 17:20-0400 Heart rate 81 /min Clifton Hung MD Work Phone: [facility] 03-22-2024 17:20-0400 Respiratory rate 16 /min Clifton Hung MD Work Phone: [facility] 03-22-2024 17:20-0400 SaO2% (BldA) [Mass fraction] 98 % Clifton Hung MD Work Phone: [facility] 03-22-2024 17:20-0400 Systolic blood pressure 120 mm[Hg] Clifton Hung MD Work Phone: [facility] 03-14-2024 09:50-0400 Body mass index (BMI) [Ratio] 26.03 kg/m2 Chad Mariee 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 Work Phone: [facility] 03-14-2024 09:50-0400 Body temperature 97.7 [degF] Chad Mariee 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 Work Phone: [facility] 03-14-2024 09:50-0400 Body weight 66.63 kg Chad Mariee APRN.REPA[employer]ER [employer] Work Phone: [facility] 03-14-2024 09:50-0400 Diastolic blood pressure 85 mm[Hg] Chad Mariee 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 Work Phone: [facility] 03-14-2024 09:50-0400 Heart rate 67 /min Chad Mariee 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 Work Phone: [facility] 03-14-2024 09:50-0400 SaO2% (BldA) [Mass fraction] 100 % Chad Mariee 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 Work Phone: [facility] 03-14-2024 09:50-0400 Systolic blood pressure 144 mm[Hg] Chad Mariee 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 Work Phone: [facility] 01-18-2024 13:48-0400 Body weight 66.68 kg Sima Dumont APRN.REPA[employer]ER [employer]ANCE [employer] Work Phone: [facility] 01-18-2024 13:48-0400 Diastolic blood pressure 72 mm[Hg] Sima Dumont APRN.REPA[employer]ER [employer] Work Phone: [facility] 01-18-2024 13:48-0400 Systolic blood pressure 162 mm[Hg] Sima Dumont APRN.REPA[employer]ER [employer] Work Phone: [facility] 01-14-2024 08:34-0500 Diastolic blood pressure 78 mm[Hg] Francine Madrid 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 Work Phone: [facility] 01-14-2024 08:34-0500 Systolic blood pressure 140 mm[Hg] Francine Madrid APRN.REPA[employer]ER [employer] Work Phone: [facility] 01-14-2024 08:23-0500 Body weight 65.77 kg Francine Madrid APRN.REPA[employer]ER [employer] Work Phone: [facility] 01-14-2024 08:23-0500 Heart rate 74 /min Francine Madrid 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 Work Phone: [facility] 01-14-2024 08:23-0500 Respiratory rate 14 /min Francine Madrid 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 Work Phone: [facility] 12-31-2023 13:43-0500 Body weight 64.86 kg Francine Madrid 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 Work Phone: [facility] 12-31-2023 13:43-0500 Diastolic blood pressure 90 mm[Hg] Francine Madrid 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 Work Phone: [facility] 12-31-2023 13:43-0500 Heart rate 77 /min Francine Madrid 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 Work Phone: [facility] 12-31-2023 13:43-0500 Respiratory rate 16 /min Francine Madrid 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 Work Phone: [facility] 12-31-2023 13:43-0500 Systolic blood pressure 170 mm[Hg] Francine Madrid 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 Work Phone: [facility] 12-28-2023 02:53-0500 Body temperature 98 [degF] Dr. Clifton Hung Work Phone: [facility] 12-28-2023 02:53-0500 Diastolic blood pressure 65 mm[Hg] Dr. Clifton Hung Work Phone: [facility] 12-28-2023 02:53-0500 Heart rate 96 /min Dr. Clifton uHng Work Phone: [facility] 12-28-2023 02:53-0500 Respiratory rate 18 /min Dr. Clifton Hung Work Phone: [facility] 12-28-2023 02:53-0500 SaO2% (BldA) [Mass fraction] 96 % Dr. Clifton Hung Work Phone: [facility] 12-28-2023 02:53-0500 Systolic blood pressure 188 mm[Hg] Dr. Clifton Hung Work Phone: 2(926)347-972558 [place] [address] 12-28-2023 00:40-0500 Body height 160.[address] Clifton Hung Work Phone: 6(031)572-934358 [place] [address] 12-28-2023 00:40-0500 Body mass index (BMI) [Ratio] 25.6 kg/m2 Dr. Clifton Hung Work Phone: 8(072)725-794258 [place] [address] 12-28-2023 00:40-0500 Body weight 65.[address] Clifton Hung Work Phone: 0(592)367-767458 [place] [address] 12-22-2023 15:03-0500 Body temperature 99.3 [degF] Dr. Clifton Hung Work Phone: 8(697)084-136158 [place] [address] 12-22-2023 15:03-0500 Diastolic blood pressure 74 mm[Hg] Dr. Clifton Hung Work Phone: 3(349)566-221358 [place] [address] 12-22-2023 15:03-0500 Heart rate 88 /min Dr. Clifton Hung Work Phone: 2(378)063-163758 [place] [address] 12-22-2023 15:03-0500 Respiratory rate 16 /min Dr. Clifton Hung Work Phone: 0(076)152-053058 [place] [address] 12-22-2023 15:03-0500 SaO2% (BldA) [Mass fraction] 98 % Dr. Clifton Hung Work Phone: 7(057)632-023158 [place] [address] 12-22-2023 15:03-0500 Systolic blood pressure 103 mm[Hg] Dr. Clifton Hung Work Phone: 0(701)979-406058 [place] [address] 12-22-2023 13:22-0500 Body height 160.[address] Clifton Hung Work Phone: 5(592)066-110858 [place] [address] 12-22-2023 13:22-0500 Body mass index (BMI) [Ratio] 24.8 kg/m2 Dr. Clifton Hung Work Phone: 9(347)368-160958 [place] [address] 12-22-2023 13:22-0500 Body weight 63.[address] Clifton Hung Work Phone: [facility] 10-08-2023 08:59-0500 Body weight 64.86 kg Francine Madrid 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 Work Phone: [facility] 10-08-2023 08:59-0500 Diastolic blood pressure 85 mm[Hg] Francine Madrid 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 Work Phone: [facility] 10-08-2023 08:59-0500 Heart rate 62 /min Francine Madrid 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 Work Phone: [facility] 10-08-2023 08:59-0500 Respiratory rate 14 /min Francine Madrid 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 Work Phone: [facility] 10-08-2023 08:59-0500 Systolic blood pressure 166 mm[Hg] Francine Madrid 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 Work Phone: 5(404)170-617010 [place] [address] 09-11-2023 14:30-0400 Body height 160.[address] Clifton Hung Work Phone: 2(684)614-459420 [place] [address] 09-11-2023 14:30-0400 Body mass index (BMI) [Ratio] 25.4 kg/m2 Dr. Clifton Hung Work Phone: 9(721)644-497520 [place] [address] 09-11-2023 14:30-0400 Body temperature 98.9 [degF] Dr. Clifton Hung Work Phone: 0(257)718-152220 [place] [address] 09-11-2023 14:30-0400 Body weight 65.[address] Clifton Hung Work Phone: 3(686)235-854420 [place] [address] 09-11-2023 14:30-0400 Diastolic blood pressure 94 mm[Hg] Dr. Clifton Hung Work Phone: 6(810)799-096920 [place] [address] 09-11-2023 14:30-0400 Heart rate 91 /min Dr. Clifton Hung Work Phone: 1(986)405-442620 [place] [address] 09-11-2023 14:30-0400 Respiratory rate 20 /min Dr. Clifton Hung Work Phone: 6(319)318-253820 [place] [address] 09-11-2023 14:30-0400 SaO2% (BldA) [Mass fraction] 96 % Dr. Clifton Hung Work Phone: [facility] 09-11-2023 14:30-0400 Systolic blood pressure 107 mm[Hg] Dr. Clifton Hung Work Phone: 7(223)472-397420 [place] [address] 08-30-2023 10:24-0400 Body mass index (BMI) [Ratio] 26 kg/m2 Dr. Clifton Hung Work Phone: [facility] 08-30-2023 10:24-0400 Body weight 66.[address] Clifton Hung Work Phone: 5(487)110-281620 [place] [address] 08-30-2023 10:24-0400 Diastolic blood pressure 89 mm[Hg] Dr. Clifton Hung Work Phone: 5(288)354-991620 [place] [address] 08-30-2023 10:24-0400 Heart rate 62 /min Dr. Clifton Hung Work Phone: 4(578)873-740220 [place] [address] 08-30-2023 10:24-0400 Respiratory rate 18 /min Dr. Clifton Hung Work Phone: 7(842)492-078420 [place] [address] 08-30-2023 10:24-0400 Systolic blood pressure 184 mm[Hg] Dr. Clifton Hung Work Phone: [facility] 07-23-2023 11:06-0400 Body weight 63.14 kg Sima Dumont APRN.REPAIRER RESISTANCE WELDING MACHINES Work Phone: [facility] 07-23-2023 11:06-0400 Diastolic blood pressure 78 mm[Hg] Sima Dumont APRN.REPAIRER RESISTANCE WELDING [employer]ACHINES Work Phone: [facility] 07-23-2023 11:06-0400 Systolic blood pressure 120 mm[Hg] Sima Dumont APRN.REPAIRER RESISTANCE WELDING [employer]ACHINES Work Phone: [facility] 07-15-2023 14:54-0400 Diastolic blood pressure 64 mm[Hg] Dr. Clifton Hung Work Phone: [facility] 07-15-2023 14:54-0400 Respiratory rate 16 /min Dr. Clifton Hung Work Phone: [facility] 07-15-2023 14:54-0400 Systolic blood pressure 130 mm[Hg] Dr. Clifton Hung Work Phone: [facility] 07-15-2023 14:53-0400 Heart rate 64 /min Dr. Clifton Hung Work Phone: 6(146)627-862920 [place] [address] 04-20-2023 10:38-0400 Body height 160.[address] Clifton Hung Work Phone: 0(379)552-657420 [place] [address] 04-20-2023 10:38-0400 Body weight 61.[address] Clifton Hung Work Phone: 7(919)820-238020 [place] [address] 04-08-2023 13:05-0400 Body height 157.5 cm Clifton Hung MD Work Phone: [facility] 04-08-2023 13:05-0400 Body weight 60.33 kg Clifton Hung MD Work Phone: [facility] 04-08-2023 13:05-0400 Diastolic blood pressure 84 mm[Hg] Clifton Hung MD Work Phone: [facility] 04-08-2023 13:05-0400 Heart rate 70 /min Clifton Hung MD Work Phone: [facility] 04-08-2023 13:05-0400 Respiratory rate 16 /min Clifton Hung MD Work Phone: [facility] 04-08-2023 13:05-0400 Systolic blood pressure 128 mm[Hg] Clifton Hung MD Work Phone: [facility] 04-01-2023 13:53-0400 Body mass index (BMI) [Ratio] 23.9 kg/m2 Dr. Clifton Hung Work Phone: [facility] 04-01-2023 13:53-0400 Body weight 61.[address] Clifton Hung Work Phone: 2(744)825-231820 [place] [address] 04-01-2023 13:53-0400 Diastolic blood pressure 80 mm[Hg] Dr. Clifton Hung Work Phone: [facility] 04-01-2023 13:53-0400 Heart rate 55 /min Dr. Clifton Hung Work Phone: [facility] 04-01-2023 13:53-0400 SaO2% (BldA) [Mass fraction] 98 % Dr. Clifton Hung Work Phone: [facility] 04-01-2023 13:53-0400 Systolic blood pressure 139 mm[Hg] Dr. 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 Work Phone: [facility] 02-26-2023 09:52-0400 Body weight 61.69 kg Chad Mariee 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 Work Phone: [facility] 02-26-2023 09:52-0400 Diastolic blood pressure 70 mm[Hg] Chad Mariee 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 Work Phone: [facility] 02-26-2023 09:52-0400 Heart rate 82 /min Chad Mariee 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 Work Phone: [facility] 02-26-2023 09:52-0400 SaO2% (BldA) [Mass fraction] 100 % Chad Mariee 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 Work Phone: [facility] 02-26-2023 09:52-0400 Systolic blood pressure 132 mm[Hg] Chad Mariee 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 Work Phone: [facility] 02-18-2023 11:10-0400 Body mass index (BMI) [Ratio] 24.3 kg/m2 Dr. Clifton Hung Work Phone: [facility] 02-18-2023 11:10-0400 Body weight 62.[address] Clifton Hung Work Phone: [facility] 02-18-2023 11:10-0400 Diastolic blood pressure 75 mm[Hg] Dr. Clifton Hung Work Phone: [facility] 02-18-2023 11:10-0400 Heart rate 66 /min Dr. Clifton Hung Work Phone: [facility] 02-18-2023 11:10-0400 Respiratory rate 16 /min Dr. Clifton Hung Work Phone: [facility] 02-18-2023 11:10-0400 Systolic blood pressure 121 mm[Hg] Dr. Clifton Hung Work Phone: [facility] 02-09-2023 12:08-0400 Body weight 63.[address] Clifton Hung Work Phone: [facility] 02-09-2023 07:43-0400 Body temperature 98.71 [degF] Cherise Sifuentes PA-C Work Phone: [facility] 02-09-2023 07:43-0400 Body weight 61.69 kg Cherise Sifuentes PA-C Work Phone: [facility] 02-09-2023 07:43-0400 Diastolic blood pressure 78 mm[Hg] Cherise Sifuentes PA-C Work Phone: [facility] 02-09-2023 07:43-0400 Heart rate 80 /min Cherise Sifuentes PA-C Work Phone: [facility] 02-09-2023 07:43-0400 Respiratory rate 18 /min Cherise Sifuentes PA-C Work Phone: [facility] 02-09-2023 07:43-0400 Systolic blood pressure 122 mm[Hg] Cherise Sifuentes PA-C Work Phone: [facility] 02-05-2023 09:19-0400 Body temperature 98.91 [degF] Lori Nithya 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 Work Phone: [facility] 02-05-2023 09:19-0400 Body weight 63.23 kg Lori Nithya 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 Work Phone: [facility] 02-05-2023 09:19-0400 Diastolic blood pressure 72 mm[Hg] Lori Nithya 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 Work Phone: [facility] 02-05-2023 09:19-0400 Heart rate 92 /min Lori Nithya 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 Work Phone: [facility] 02-05-2023 09:19-0400 Respiratory rate 18 /min Lori Nithya 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 Work Phone: [facility] 02-05-2023 09:19-0400 SaO2% (BldA) [Mass fraction] 98 % Lorimary lou Matak 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 Work Phone: [facility] 02-05-2023 09:19-0400 Systolic blood pressure 112 mm[Hg] Lori Nithya 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 Work Phone: [facility] 01-07-2023 16:32-0500 Body height 160.[address] Clifton Hung Work Phone: [facility] 01-07-2023 16:32-0500 Body weight 65.[address] Clifton Hung Work Phone: [facility] 12-09-2022 07:04-0500 Body weight 66.68 kg Sima Dumont 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 Work Phone: [facility] 12-09-2022 07:04-0500 Diastolic blood pressure 62 mm[Hg] Sima Dumont 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 Work Phone: [facility] 12-09-2022 07:04-0500 Systolic blood pressure 110 mm[Hg] Sima Dumont 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 Work Phone: [facility] 12-01-2022 14:30-0500 Body temperature 98 [degF] Dr. Clifton Hung Work Phone: 3(139)125-442958 [place] [address] 12-01-2022 14:30-0500 Diastolic blood pressure 69 mm[Hg] Dr. Clifton Hung Work Phone: 2(437)529-646958 [place] [address] 12-01-2022 14:30-0500 Heart rate 60 /min Dr. Clifton Hung Work Phone: 0(056)066-866958 [place] [address] 12-01-2022 14:30-0500 Respiratory rate 18 /min Dr. Clifton Hung Work Phone: 8(735)861-522558 [place] [address] 12-01-2022 14:30-0500 SaO2% (BldA) [Mass fraction] 99 % Dr. Clifton Hung Work Phone: 5(739)886-882958 [place] [address] 12-01-2022 14:30-0500 Systolic blood pressure 120 mm[Hg] Dr. Clifton Hung Work Phone: 3(784)052-200158 [place] [address] 12-01-2022 12:07-0500 Body height 160.[address] Clifton Hung Work Phone: 0(591)820-751458 [place] [address] 12-01-2022 12:07-0500 Body mass index (BMI) [Ratio] 25.8 kg/m2 Dr. Clifton Hung Work Phone: 7(184)981-606758 [place] [address] 12-01-2022 12:07-0500 Body weight 66.[address] Clifton Hung Work Phone: 0(252)420-281558 [place] [address] 11-19-2022 11:15-0500 Body height 160.[address] Clifton Hung Work Phone: 8(919)884-609758 [place] [address] 11-19-2022 11:15-0500 Body mass index (BMI) [Ratio] 26.4 kg/m2 Dr. Clifton Hung Work Phone: 0(684)958-918258 [place] [address] 11-19-2022 11:15-0500 Body weight 67.[address] Clifton Hung Work Phone: 0(844)361-645758 [place] [address] 11-19-2022 11:15-0500 Diastolic blood pressure 77 mm[Hg] Dr. Clifton Hung Work Phone: [facility] 11-19-2022 11:15-0500 Heart rate 71 /min Dr. Clifton Hung Work Phone: [facility] 11-19-2022 11:15-0500 SaO2% (BldA) [Mass fraction] 97 % Dr. Clifton Hung Work Phone: [facility] 11-19-2022 11:15-0500 Systolic blood pressure 144 mm[Hg] Dr. Clifton Hung Work Phone: [facility] 11-14-2022 13:11-0500 Body temperature 98.71 [degF] Shaneka Yang APRN.REPAIRER RESISTANCE WELDING [employer]ACH[employer]ES Work Phone: [facility] 11-14-2022 13:11-0500 Body weight 68.49 kg Shaneka Yang APRN.REPAIRER RESISTANCE WELDING [employer]ACHINES Work Phone: [facility] 11-14-2022 13:11-0500 Diastolic blood pressure 82 mm[Hg] Shaneka Yang APRN.REPAIRER RESISTANCE WELDING [employer]ACHINES Work Phone: [facility] 11-14-2022 13:11-0500 Heart rate 77 /min Shaneka Yang APRN.REPAIRER RESISTANCE WELDING MACHINES Work Phone: [facility] 11-14-2022 13:11-0500 Respiratory rate 16 /min Shaneka Yang APRN.REPAIRER RESISTANCE WELDING MACHINES Work Phone: [facility] 11-14-2022 13:11-0500 SaO2% (BldA) [Mass fraction] 98 % Shaneka Yang APRN.REPAIRER RESISTANCE WELDING MACHINES Work Phone: [facility] 11-14-2022 13:11-0500 Systolic blood pressure 138 mm[Hg] Shaneka Yang APRN.REPAIRER RESISTANCE WELDING MACHINES Work Phone: [facility] 11-02-2022 13:16-0500 Body temperature 100.6 [degF] Shaneka Yang APRN.REPAIRER RESISTANCE WELDING [employer]ACH[employer]ES Work Phone: [facility] 11-02-2022 13:16-0500 Body weight 67.59 kg Shaneka Yang APRN.REPAIRER RESISTANCE WELDING MACHINES Work Phone: [facility] 11-02-2022 13:16-0500 Diastolic blood pressure 84 mm[Hg] Shaneka Yang APRN.REPAIRER RESISTANCE WELDING [employer]ACHINES Work Phone: [facility] 11-02-2022 13:16-0500 Heart rate 92 /min Shaneka Yang APRN.REPAIRER RESISTANCE WELDING [employer]ACHINES Work Phone: [facility] 11-02-2022 13:16-0500 Respiratory rate 18 /min Shaneka Yang APRN.REPAIRER RESISTANCE WELDING MACHINES Work Phone: [facility] 11-02-2022 13:16-0500 SaO2% (BldA) [Mass fraction] 96 % Shaneka Yang APRN.REPAIRER RESISTANCE WELDING MACHINES Work Phone: [facility] 11-02-2022 13:16-0500 Systolic blood pressure 132 mm[Hg] Shaneka Yang APRN.REPAIRER RESISTANCE WELDING [employer]ACHINES Work Phone: [facility] 10-05-2022 10:25-0500 Body temperature 97.11 [degF] Cherise Sifuentes PA-C Work Phone: [facility] 10-05-2022 10:25-0500 Body weight 67.13 kg Cherise Sifuentes PA-C Work Phone: [facility] 10-05-2022 10:25-0500 Diastolic blood pressure 80 mm[Hg] Cherise Sifuentes PA-C Work Phone: [facility] 10-05-2022 10:25-0500 Heart rate 72 /min Cherise Sifuentes PA-C Work Phone: [facility] 10-05-2022 10:25-0500 Respiratory rate 16 /min Cherise Sifuentes PA-C Work Phone: [facility] 10-05-2022 10:25-0500 Systolic blood pressure 110 mm[Hg] Cherise Sifuentes PA-C Work Phone: [facility] 09-03-2022 14:42-0400 Body weight 67.59 kg Clifton Hung MD Work Phone: [facility] 09-03-2022 14:42-0400 Diastolic blood pressure 76 mm[Hg] Clifton Hung MD Work Phone: [facility] 09-03-2022 14:42-0400 Heart rate 84 /min Clifton Hung MD Work Phone: [facility] 09-03-2022 14:42-0400 SaO2% (BldA) [Mass fraction] 96 % Clifton Hung MD Work Phone: [facility] 09-03-2022 14:42-0400 Systolic blood pressure 120 mm[Hg] Clifton Hung MD Work Phone: [facility] 09-03-2022 10:35-0400 Body mass index (BMI) [Ratio] 26.5 kg/m2 Dr. Clifton Hung Work Phone: [facility] 09-03-2022 10:35-0400 Body weight 68.[address] Clifton Hung Work Phone: [facility] 09-03-2022 10:35-0400 Diastolic blood pressure 69 mm[Hg] Dr. Clifton Hung Work Phone: 4(097)169-002420 [place] [address] 09-03-2022 10:35-0400 Heart rate 77 /min Dr. Clifton Hung Work Phone: [facility] 09-03-2022 10:35-0400 Respiratory rate 16 /min Dr. Clifton Hung Work Phone: [facility] 09-03-2022 10:35-0400 Systolic blood pressure 102 mm[Hg] Dr. Clifton Hung Work Phone: [facility] 08-28-2022 10:22-0400 Body weight 66.68 kg Sima Dumont APRN.REPAIRER RESISTANCE WELDING MACHINES Work Phone: [facility] 08-28-2022 10:22-0400 Diastolic blood pressure 70 mm[Hg] Sima Dumont APRN.REPAIRER RESISTANCE W[employer]ACH[employer]ES Work Phone: [facility] 08-28-2022 10:22-0400 Systolic blood pressure 98 mm[Hg] Sima Dumont APRN.REPAIRER RESISTANCE W[employer]ACH[employer]ES Work Phone: [facility] 08-28-2022 08:23-0400 Body height 161 cm Chad Russellenter 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 Work Phone: [facility] 08-28-2022 08:23-0400 Body temperature 96.8 [degF] Chad Russellenter 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 Work Phone: [facility] 08-28-2022 08:23-0400 Body weight 67.13 kg Chad Russellenter 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 Work Phone: [facility] 08-28-2022 08:23-0400 Diastolic blood pressure 76 mm[Hg] [place] Mariee 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 Work Phone: [facility] 08-28-2022 08:23-0400 Heart rate 92 /min Chadnathaniel Mariee 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 Work Phone: [facility] 08-28-2022 08:23-0400 Systolic blood pressure 115 mm[Hg] Baton Rougenathaniel Mariee 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 Work Phone: [facility] 07-09-2022 07:50-0400 Body weight 68.04 kg Sima Dumont 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 Work Phone: [facility] 07-09-2022 07:50-0400 Diastolic blood pressure 68 mm[Hg] Sima Dumont 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 Work Phone: [facility] 07-09-2022 07:50-0400 Systolic blood pressure 118 mm[Hg] Sima Dumont APRN.REPAIRER RESISTANCE WELDING [employer]ACHINES Work Phone: [facility] 06-30-2022 12:34-0400 Body temperature 97.39 [degF] Martha Athy PA-C Work Phone: [facility] 06-30-2022 12:34-0400 Body weight 68.13 kg Martha Athy PA-C Work Phone: [facility] 06-30-2022 12:34-0400 Diastolic blood pressure 78 mm[Hg] Martha Athy PA-C Work Phone: [facility] 06-30-2022 12:34-0400 Heart rate 90 /min Martha Athy PA-C Work Phone: [facility] 06-30-2022 12:34-0400 Respiratory rate 18 /min Martha Athy PA-C Work Phone: [facility] 06-30-2022 12:34-0400 SaO2% (BldA) [Mass fraction] 99 % Martha Athy PA-C Work Phone: [facility] 06-30-2022 12:34-0400 Systolic blood pressure 124 mm[Hg] Martha Athy PA-C Work Phone: [facility] 05-28-2022 14:03-0400 Body height 160.[address] Clifton Hung Work Phone: [facility] Work Phone: 02-25-2022 09:57-0400 Body temperature 97.39 [degF] [place] Mariee 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 Work Phone: [facility] 02-25-2022 09:57-0400 Body weight 71.22 kg Chad Mariee 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 Work Phone: [facility] 02-25-2022 09:57-0400 Diastolic blood pressure 70 mm[Hg] [place] Mariee 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 Work Phone: [facility] 02-25-2022 09:57-0400 Heart rate 74 /min [place] Mariee 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 Work Phone: [facility] 02-25-2022 09:57-0400 Systolic blood pressure 114 mm[Hg] [place] Mariee 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 Work Phone: [facility] 07-22-2017 16:09-0400 Heart rate 60 /min [facility] Work Phone: 07-22-2017 15:47-0400 BMI (Body Mass Index) 28.16 kg/m2 [facility] Work Phone: 07-22-2017 15:47-0400 BP Diastolic 68 mm[Hg] [facility] Work Phone: 07-22-2017 15:47-0400 BP Systolic 118 mm[Hg] [facility] Work Phone: 07-22-2017 15:47-0400 Height 160.02 cm [facility] Work Phone: 07-22-2017 15:47-0400 Pulse (Heart Rate) 60 /min [facility] Work Phone: 07-22-2017 15:47-0400 Respiratory Rate 16 /min [facility] Work Phone: 07-22-2017 15:47-0400 Weight 72.12 kg [facility] Work Phone: 04-23-2017 09:44-0400 BMI (Body Mass Index) 28.16 kg/m2 [facility] Work Phone: 04-23-2017 09:44-0400 BP Diastolic 68 mm[Hg] Manda Cisco [facility] Work Phone: 04-23-2017 09:44-0400 BP Systolic 118 mm[Hg] Manda Cinday [facility] Work Phone: 04-23-2017 09:44-0400 Height 160.02 cm Manda Cinday [facility] Work Phone: 04-23-2017 09:44-0400 Pulse (Heart Rate) 72 /min Manda Marthey [facility] Work Phone: 04-23-2017 09:44-0400 Respiratory Rate 16 /min Manda Kaushalhey [facility] Work Phone: 04-23-2017 09:44-0400 Weight 72.12 kg Manda Marthey [facility] [facility] Work Phone: 01-20-2017 11:03-0400 Heart rate 72 /min [facility] Work Phone: 01-20-2017 10:34-0400 BMI (Body Mass Index) 28.27 kg/m2 [facility] Work Phone: 01-20-2017 10:34-0400 Body weight 72.39 kg [facility] Work Phone: 01-20-2017 10:34-0400 BP Diastolic 64 mm[Hg] [facility] Work Phone: [...] Date Encounter Type Care Provider Facility Start: 05-17-2025 End: 05-17-2025 ambulatory Clifton Hung MD Work Phone: [facility] Comment on above: Allied Health Visit (Medication Adherence Outreach ) Start: 05-14-2025 End: 05-14-2025 ambulatory Clifton Hung MD Work Phone: [facility] Comment on above: Allied Health Visit (Medication Adherence Outreach/) Start: 04-26-2025 End: 04-26-2025 Follow-up encounter Francine Madrid APRN.CNP Work Phone: [facility] [place] Start: 04-24-2025 End: 04-24-2025 Patient encounter procedure Francine Madrid APRN.CNP Work Phone: [facility] Comment on above: Urinary frequency (P rimary Dx); Urinary tract infection with hematuria, site unspecified Start: 04-24-2025 End: 04-24-2025 ambulatory CLIFTON HUNG Facility:[facility] Start: 04-23-2025 End: 04-23-2025 ambulatory Sima Dumont APRN.CNP Work Phone: OB/Gynecology Comment on above: UTI Start: 04-19-2025 End: 04-19-2025 Patient encounter procedure Cherise Sifuentes PA-C Work Phone: [facility] Comment on above: Encounter for Medica re annual wellness exam (Primary Dx); Advance directive discussed with patient; Controlled type 2 diabetes mellitus without complication, without long-term current use of insulin (HCC); Type 2 diabetes mellitus with hyperlipidemia (HCC); Essential hypertension; Mixed hyperlipidemia; Statin intolerance; Drug-induced myopathy; 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); RLS (restless legs syndrome); 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; Pancreatic insufficiency (HCC); Vitamin D deficiency; Hypomagnesemia; History of hyperparathyroidism; Living will on file at physician's office; Encounter for screening examination for other mental health and behavioral disorders; Screening for depression Start: 04-19-2025 End: 04-19-2025 ambulatory CLIFTON HUNG Facility:[facility] Start: 04-12-2025 End: 04-12-2025 ambulatory Clifton Hung MD [facility] Start: 04-12-2025 End: 04-12-2025 Patient encounter procedure Clifton Hung MD Work Phone: [facility] Comment on above: Population Health Na vigation Outreach ([employer] [place] ) Start: 04-09-2025 End: 04-09-2025 Patient encounter procedure Sima Dumont APRN.[employer]ER [employer] Work Phone: OB/Gynecology Comment on above: Encounter for gyneco logic examination for high-risk patient covered by Medicare (Primary Dx); Genitourinary syndrome of menopause; KLAUS (stress urinary incontinence, female); Long-term current use of tamoxifen; History of left breast cancer; Encounter for screening for osteoporosis; Asymptomatic postmenopausal status Start: 04-09-2025 End: 04-09-2025 ambulatory SIMA DUMONT Facility:[facility] Start: 04-06-2025 End: 04-06-2025 ambulatory CLIFTON HUNG Facility:[facility] Start: 04-04-2025 End: 04-04-2025 ambulatory Rocco Rendon RN Work Phone: [employer] [facility] Comment on above: Pharyngitis Start: 03-21-2025 End: 03-21-2025 Patient encounter procedure Chad Mariee APRN.[employer] Work Phone: Hematology/Oncology Start: 03-21-2025 End: 03-21-2025 ambulatory Chad Mariee APRN.[employer] Work Phone: Hematology/Oncology Comment on above: Ductal carcinoma in situ (DCIS) of left breast (Primary Dx); Encounter for screening mammogram for high-risk patient Start: 03-16-2025 End: 03-16-2025 Patient encounter procedure Alexa Matute MD Work Phone: Endocrinology Comment on above: Cold intolerance (Pr imary Dx); Disorder of adrenal gland (HCC) Start: 03-16-2025 End: 03-16-2025 ambulatory CLIFTON HUNG Facility:[facility] Start: 03-14-2025 ambulatory CLIFTON HUNG Facili ty:[facility] Start: 03-14-2025 End: 03-14-2025 Subsequent hospital visit by physician Screen Mammo [facility] Mamm[facility] Comment on above: 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] Start: 03-13-2025 End: 03-13-2025 ambulatory Clifton Hung MD Work Phone: [facility] [place] Start: 03-13-2025 End: 03-13-2025 Patient encounter procedure Clifton Hung MD Work Phone: [facility] [place] Comment on above: Population Health Na vigation Outreach ([facility] [place] ) Start: 02-25-2025 End: 04-27-2025 Follow-up encounter Alexa Matute MD Work Phone: Endocrinology Start: 02-21-2025 End: 02-21-2025 ambulatory CLIFTON HUNG Facility:[facility] Start: 02-19-2025 End: 02-19-2025 Office outpatient visit 25 minutes Ori Lord DO Work Phone: [facility] Comment on above: Urinary incontinence , mixed (Primary Dx); Microscopic hematuria; Genitourinary syndrome of menopause; History of UTI; Adenoma of right adrenal gland; Renal cyst Start: 02-19-2025 End: 02-19-2025 ambulatory ORI LORD Facility:[id number] Start: 02-16-2025 End: 02-16-2025 ambulatory ALEXA MATUTE Facility:[facility] Start: 02-16-2025 End: 02-16-2025 Patient encounter procedure Alexa Matute MD Work Phone: Endocrinology Comment on above: Adenoma of right adr enal gland (Primary Dx); Disorder of adrenal gland (HCC) Start: 01-30-2025 End: 01-30-2025 ambulatory Valarie Russell [facility] Work Phone: [facility] Start: 01-30-2025 End: 01-30-2025 Patient encounter procedure Valarie Russell [facility] Work Phone: [facility] Comment on above: Allied Health Visit Start: 01-23-2025 End: 03-25-2025 Follow-up encounter Mandy Hillman RN Endocrinology Start: 01-01-2025 End: 01-01-2025 Follow-up encounter Francine Madrid APRN.[employer] Work Phone: [facility] [place] Comment on above: COVID-19 (Primary Dx ) Start: 12-31-2024 End: 01-02-2025 Refill Chad Mariee APRN.[employer] Work Phone: Hematology/Oncology Comment on above: Refill Request Start: 12-29-2024 End: 12-29-2024 Patient encounter procedure Francine Madrid APRN.[employer] Work Phone: [facility] [place] Comment on above: Acute cough (Primary Dx); Essential hypertension Start: 12-29-2024 End: 12-29-2024 ambulatory FRANCINE MADRID Facility:[facility] Start: 12-14-2024 End: 12-14-2024 Refill Clifton Hung MD Work Phone: [facility] [place] Comment on above: Refill Request Start: 11-07-2024 End: 11-07-2024 ambulatory [facility] Facility:[facility] Start: 11-03-2024 End: 11-03-2024 ambulatory [facility] Facility:[facility] Start: 11-03-2024 End: 11-03-2024 Patient encounter procedure Alexa Matute MD Work Phone: Endocrinology Comment on above: Adenoma of right adr enal gland (Primary Dx) Start: 10-23-2024 End: 10-23-2024 ambulatory Clifton Hung Facility:[facility] Start: 10-18-2024 End: 10-18-2024 ambulatory CLIFTON HUNG Facility:[facility] Start: 10-18-2024 End: 10-18-2024 Ophthalmic examination and evaluation Clifton Hung MD Work Phone: [facility] Start: 10-18-2024 End: 10-18-2024 Patient encounter procedure Clifton Hung MD Work Phone: [facility] [place] Comment on above: Type 2 diabetes micaela itus with hyperlipidemia (HCC) (HCC) (Primary Dx); Controlled type 2 diabetes mellitus without complication, without long-term current use of insulin (HCC); Diabetic eye exam (HCC); Essential hypertension; Mixed hyperlipidemia; 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); Ductal carcinoma in situ (DCIS) of left breast; Narcolepsy without cataplexy; Vitamin D deficiency; Right lateral epicondylitis; Medication management; Gastroesophageal reflux disease without esophagitis Start: 10-14-2024 End: 10-14-2024 ambulatory CLIFTON HUNG Facility:[facility] Start: 10-13-2024 End: 10-13-2024 Telephone encounter Clifton Hung MD Work Phone: [facility] [place] Comment on above: Lab Orders Start: 10-03-2024 End: 10-03-2024 ambulatory CLIFTON HUNG Facility:[facility] Start: 10-02-2024 End: 10-02-2024 Chart abstracting Shakeel Yang MA [facility] Comment on above: Consult (Outside Oph thalmology /) Start: 10-02-2024 End: 10-02-2024 ambulatory ALEXA MATUTE Facility:[facility] Start: 09-26-2024 End: 09-26-2024 ambulatory Clifton Hung MD Work Phone: [facility] [place] Comment on above: ER visit Start: 09-22-2024 End: 09-22-2024 ambulatory ALEXA HURST CAMPOELIS Facility:[facility] Start: 09-22-2024 End: 09-22-2024 Patient encounter procedure Alexa Matute MD Work Phone: Endocrinology Comment on above: Adenoma of right adr enal gland (Primary Dx) Start: 09-14-2024 End: 09-14-2024 ambulatory Chad Mariee APRN.[employer] Work Phone: Hematology/Oncology Comment on above: Ductal carcinoma in situ (DCIS) of left breast (Primary Dx); Encounter for screening mammogram for high-risk patient Start: 09-14-2024 End: 09-14-2024 Patient encounter procedure Chad Mariee APRN.[employer] Work Phone: Hematology/Oncology Start: 08-15-2024 End: 08-15-2024 ambulatory ALEXA MATUTE Facility:[facility] Start: 08-15-2024 End: 08-15-2024 Subsequent hospital visit by physician Jasmyne [facility] ([facility]) Work Phone: Cat Scan Comment on above: Adenoma of right adr enal gland [D35.01] Start: 08-08-2024 End: 08-08-2024 ambulatory [facility] Facility:[facility] Start: 08-04-2024 End: 08-04-2024 Office outpatient visit 15 minutes Ori Mbanugo DO Work Phone: [employer] Comment on above: Urinary incontinence , mixed (Primary Dx); Microscopic hematuria; Genitourinary syndrome of menopause; History of UTI; Adenoma of right adrenal gland Start: 08-04-2024 End: 08-04-2024 ambulatory ORI MBANUGO Facility:[id number] Start: 08-02-2024 End: 08-02-2024 Refill Cherise Sifuentes PA-C Work Phone: [facility] Comment on above: Refill Request Start: 07-17-2024 End: 07-17-2024 Refill Francine Madrid APRN.CNP Work Phone: [facility] [place] Comment on above: Refill Request Start: 07-11-2024 End: 07-11-2024 [facility] Start: 07-11-2024 End: 07-11-2024 Patient encounter procedure Alexa Matute MD Work Phone: Endocrinology Comment on above: Adenoma of right adr enal gland (Primary Dx); Disorder of adrenal gland (HCC) Start: 07-05-2024 End: 07-11-2024 ambulatory Clifton Hung MD Work Phone: [facility] [place] Comment on above: update Start: 07-04-2024 End: 07-04-2024 Office outpatient visit 25 minutes Ori Mbanugo DO Work Phone: [employer] Comment on above: Urinary incontinence , mixed (Primary Dx); Microscopic hematuria; Adenoma of right adrenal gland; Renal cyst Start: 07-04-2024 End: 07-04-2024 ambulatory ORI LORD Facility:[id number] Start: 06-26-2024 End: 06-26-2024 Chart abstracting Clifton Hung MD Work Phone: [facility] Comment on above: Outside Imaging Start: 06-23-2024 End: 06-23-2024 [facility] Facility:[facility] Start: 06-19-2024 Chart abstracting Shakeel Valladares [facility] [place] Comment on above: Results (Outside res ults /) Start: 06-19-2024 [facility] Facility :[facility] Start: 06-19-2024 End: 06-19-2024 [facility] Facility:[facility] Start: 06-15-2024 Chart abstracting Clifton romero MD Work Phone: [facility] Comment on above: Outside [id number]-Bgk-DYJ Ordered Start: 06-14-2024 Chart abstracting Clifton romero MD Work Phone: [facility] Comment on above: Outside Ifce-Txl-GIZ Ordered Start: 06-09-2024 Chart abstracting Shakeel Valladares [facility] [place] Comment on above: Results (Outside lab results /) Start: 06-06-2024 Chart abstracting Clifton romero MD Work Phone: [facility] Comment on above: Outside [id number]-Sfs-CVF Ordered Start: 06-05-2024 End: 06-06-2024 [facility] Facility:[facility] Start: 06-05-2024 End: 06-05-2024 [facility] Facility:[facility] Start: 05-23-2024 Telephone encounter Ori Lord DO Work Phone: [employer] Comment on above: Consult Start: 05-23-2024 End: 05-23-2024 Office outpatient visit 15 minutes Ori Lord DO Work Phone: [employer] Comment on above: Urinary incontinence , mixed (Primary Dx); Genitourinary syndrome of menopause; Microscopic hematuria; Adenoma of right adrenal gland Start: 05-23-2024 End: 05-23-2024 ambulatory ORI LORD Facility:[id number] Start: 05-01-2024 End: 05-01-2024 Patient encounter procedure Julio Tavarez APRN.[employer] Work Phone: [facility] Comment on above: Burn, foot, second d egree, left, initial encounter (Primary Dx) Start: 04-25-2024 Chart abstracting Shakeel Yang MA [facility] [place] Comment on above: Consult (Cardiology /) Start: 04-25-2024 End: 04-25-2024 Patient encounter procedure Ori Lord DO Work Phone: [facility] Comment on above: Lower urinary tract symptoms (LUTS) (Primary Dx); Urinary incontinence, mixed; Microscopic hematuria; History of UTI; Abnormal findings on diagnostic imaging of urinary organs Start: 04-25-2024 End: 04-25-2024 [facility] ORI LORD Facility:[id number] Start: 04-21-2024 End: 04-21-2024 ambulatory [facility] Facility:[facility] Start: 04-20-2024 Telephone encounter Francine cuellar APRN.[employer] Work Phone: [facility] Comment on above: Results Start: 04-20-2024 [facility] Facility :[facility] Start: 04-18-2024 Telephone encounter Francine cuellar APRN.[employer] Work Phone: [facility] Comment on above: Patient Update Start: 04-17-2024 End: 04-17-2024 Patient encounter procedure Francine Madrid APRN.[employer] Work Phone: [facility] Comment on above: Essential hypertensi on (Primary Dx); Controlled type 2 diabetes mellitus without complication, without long-term current use of insulin (HCC); Mixed hyperlipidemia; Vitamin D deficiency; Narcolepsy without cataplexy; RLS (restless legs syndrome); Obstructive sleep apnea on CPAP; Irritable bowel syndrome with diarrhea; Advance directive discussed with patient; Encounter for Medicare annual wellness exam; Living will on file at physician's office; Ductal carcinoma in situ (DCIS) of left breast; Risk of exposure to Lyme disease; Other diabetic neurological complication associated with type 2 diabetes mellitus (HCC); 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) Start: 03-23-2024 ambulatory Clifton allen MD Work Phone: [facility] [place] Comment on above: test results Start: 03-23-2024 Telephone encounter Clifton Hung MD Work Phone: [facility] [place] Comment on above: Medication Problem Start: 03-22-2024 End: 03-22-2024 Patient encounter procedure Clifton Hung MD Work Phone: [facility] [place] Comment on above: Pharyngitis, unspeci fied etiology (Primary Dx); Respiratory illness; Bacterial sinusitis Start: 03-14-2024 Telephone encounter Sima resendiz APRN.CNP Work Phone: OB/Gynecology Comment on above: New Medication Start: 03-14-2024 End: 03-14-2024 ambulatory Chad Mariee APRN.CNP Work Phone: Hematology/Oncology Comment on above: Ductal carcinoma in situ (DCIS) of left breast (Primary Dx) Start: 03-14-2024 End: 03-14-2024 Patient encounter procedure Chad Mariee APRN.CNP Work Phone: Hematology/Oncology Start: 03-09-2024 Documentation procedure Mammog chidi Coordinator [facility] Department Start: 03-09-2024 Letter encounter Mammography Coordinator [facility] Department Start: 03-09-2024 End: 03-09-2024 Subsequent hospital visit by physician Screen Mammo [facility] Mammogram Comment on above: 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] Start: 02-29-2024 Refill Clifton allen MD Work Phone: [facility] [place] Comment on above: Refill Request Start: 02-14-2024 Refill Clifton allen MD Work Phone: [facility] [place] Comment on above: Refill Request Start: 01-26-2024 Refill Francine resendiz APRN.[employer] Work Phone: [facility] Comment on above: Refill Request Start: 01-21-2024 ambulatory Clifton allen MD Work Phone: [facility] Comment on above: Lisinopril and tests results Start: 01-18-2024 ambulatory Clifton allen MD Work Phone: [facility] Comment on above: Lab Start: 01-18-2024 End: 01-18-2024 Patient encounter procedure Sima Dumont APRN.[employer] Work Phone: OB/Gynecology Comment on above: Dysuria (Primary Dx) ; Urinary frequency; Vaginal discharge; Genitourinary syndrome of menopause Start: 01-17-2024 Telephone encounter Clifton Hung MD Work Phone: [facility] Comment on above: High Blood Sugar; Or ders Start: 01-14-2024 End: 01-14-2024 Patient encounter procedure Francine Madrid APRN.[employer] Work Phone: [facility] Comment on above: Essential hypertensi on (Primary Dx) Start: 01-10-2024 Chart abstracting Clifton romero MD Work Phone: [facility] Comment on above: Outside Diabetic Eye Exam Start: 01-10-2024 Ophthalmic examinati on and evaluation Clifton Hung MD Work Phone: [facility] Start: 01-03-2024 End: 01-03-[address] Clifton Hung Work Phone: [facility] Work Phone: Start: 01-03-2024 End: 01-03-[address] Clifton Hung Work Phone: [facility] Work Phone: Start: 01-03-2024 End: 01-03-2024 ambulatory Carson Alcantar Facility:[facility] Start: 12-31-2023 End: 12-31-2023 Patient encounter procedure Francine Madrid APRN.[employer] Work Phone: [facility] Comment on above: Vaginal yeast infect ion (Primary Dx); Essential hypertension Start: 12-28-2023 Chart abstracting Clifton romero MD Work Phone: [facility] Comment on above: ER Discharge Summary Start: 12-28-2023 End: 12-28-2023 Emergency department patient visit Dr. Clifton Hung Work Phone: [facility] Work Phone: Start: 12-24-2023 ambulatory Clifton allen MD Work Phone: [facility] Comment on above: Influenza A Start: 12-22-2023 End: 12-22-2023 Emergency department patient visit Dr. Clifton Hung Work Phone: [facility] Work Phone: Start: 12-10-2023 Chart abstracting Clifton romero MD Work Phone: [facility] Comment on above: Outside Pmnk-Eiy-ZNN Ordered Start: 12-08-2023 End: 12-08-[address] Clifton Hung Work Phone: [facility] Work Phone: Start: 12-08-2023 End: 12-08-[address] Clifton Hung Work Phone: [facility]Laboratory Work Phone: Start: 12-08-2023 End: 12-08-2023 ambulatory [facility] Facility:[facility] Start: 12-06-2023 End: 12-06-[address] Clifton Hung Work Phone: [facility] Work Phone: Start: 12-06-2023 End: 12-06-2023 ambulatory [facility] Facility:[facility] Start: 10-08-2023 End: 10-08-2023 Patient encounter procedure Francine Madrid APRN.CNP Work Phone: [facility] Comment on above: Essential hypertensi on (Primary Dx); Controlled type 2 diabetes mellitus without complication, without long-term current use of insulin (HCC); Mixed hyperlipidemia; Narcolepsy without cataplexy; Ductal carcinoma in situ (DCIS) of left breast; RLS (restless legs syndrome); Obstructive sleep apnea on CPAP Start: 10-06-2023 Non-patient / Non-visit Dr. Gabino Hung Work Phone: [facility] Work Phone: Start: 10-03-2023 Non-patient / Non-visit Dr. Gabino Hung Work Phone: [facility] Start: 10-01-2023 End: 10-01-[address] Clifton Hung Work Phone: [facility] Work Phone: Start: 10-01-2023 End: 10-01-[address] [facility]: Start: 09-21-2023 Non-patient / Non-visit Dr. Gabino Hung Work Phone: [facility] Work Phone: Start: 09-15-2023 Chart abstracting Clifton romero MD Work Phone: [facility] Comment on above: Outside Ophtalmology Start: 09-11-2023 End: 09-11-2023 Emergency department patient visit Dr. Clifton Hung Work Phone: [facility] Work Phone: Start: 09-08-[address] Yolande Hung [facility]: Start: 08-31-2023 Chart abstracting Clifton romero MD Work Phone: [facility] Comment on above: Clinical Update Start: 08-30-2023 End: 08-30-[address] Clifton Hung Work Phone: [facility] Work Phone: Start: 08-02-2023 Chart abstracting Clifton romero MD Work Phone: [facility] Comment on above: Outside Ophthalmolog y Start: 07-23-2023 End: 07-23-2023 Patient encounter procedure Sima Dumont APRN.CNP Work Phone: OB/Gynecology Comment on above: Dysuria (Primary Dx) ; Urine frequency; Vaginal discharge; Vulvovaginal discomfort Start: 07-15-2023 End: 07-15-[address] Clifton Hung Work Phone: [facility] Work Phone: Start: 06-15-2023 Chart abstracting Clifton romero MD Work Phone: [facility] Comment on above: Outside Ophthalmolog y Start: 06-07-2023 Chart abstracting Clifton romero MD Work Phone: [facility] Comment on above: Consult Start: 04-20-2023 End: 05-07-[address] Clifton Hung Work Phone: [facility] Work Phone: Start: 04-20-2023 End: 05-07-[address] Clifton Hung Work Phone: [facility] Work Phone: Start: 04-09-2023 Chart abstracting Clifton romero MD Work Phone: [facility] Comment on above: Outside Diabetic Eye Exam Start: 04-08-2023 ambulatory Clifton allen MD Work Phone: [facility] Comment on above: re: vitamins Start: 04-08-2023 End: 04-08-2023 Ophthalmic examination and evaluation Clifton Hung MD Work Phone: [facility] [place] Start: 04-08-2023 End: 04-08-2023 Patient encounter procedure Clifton Hung MD Work Phone: [facility] Comment on above: Encounter for Medica re annual wellness exam (Primary Dx); Controlled type 2 diabetes mellitus without complication, without long-term current use of insulin (HCC); Diabetic eye exam (HCC); Essential hypertension; Mixed hyperlipidemia; 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 Clifton Hung Work Phone: [facility] Work Phone: Start: 02-26-2023 End: 02-26-2023 ambulatory Chad Mariee APRN.CNP Work Phone: Hematology/Oncology Comment on above: Ductal carcinoma in situ (DCIS) of left breast (Primary Dx); Encounter for screening mammogram for high-risk patient Start: 02-26-2023 End: 02-26-2023 Patient encounter procedure Chad Mariee APRN.CNP Work Phone[facility] Start: 02-24-2023 End: 02-24-2023 Subsequent hospital visit by physician Screen Mammo [facility] Mammogram Comment on above: Breast neoplasm, Tis (DCIS), left [D05.12] Start: 02-22-2023 Chart abstracting Clifton romero MD Work Phone: [facility] [place] Comment on above: Outside Neurology Start: 02-19-2023 Chart abstracting Clifton romero MD Work Phone: [facility] Comment on above: Outside Cardiology Start: 02-18-2023 End: 02-18-[address] Clifton Hung Work Phone: [facility] Work Phone: Start: 02-17-2023 ambulatory Chad lance [employer]ELD [employer]OP FARM WORKERCheyREPAIRER RESISTANCE WELDING MACHINES Work Phone: Hematology/Oncology Comment on above: Lab work Start: 02-09-2023 End: 03-07-[address] Clifton Hung [facility]: Start: 02-09-2023 End: 02-09-2023 Patient encounter procedure Cherise Sifuentes PA-C Work Phone: [facility] Comment on above: Bacterial sinusitis (Primary Dx) Start: 02-08-2023 Refill Chad lance APRN.REPAIRER RESISTANCE WELDING MACHINES Work Phone: Hematology/Oncology Comment on above: Refill Request Start: 02-05-2023 ambulatory Clifton allen MD Work Phone: [facility] Comment on above: Express care visit Start: 02-05-2023 End: 02-05-2023 Patient encounter procedure Lori Barriga APRN.REPAIRER RESISTANCE WELDING MACHINES Work Phone: [facility] Comment on above: URI with cough and c ongestion (Primary Dx) Start: 01-11-2023 End: 01-11-2023 ambulatory TEO Kaplan [facility] Start: 01-07-2023 End: 02-05-[address] Clifton Hung Work Phone: [facility] Work Phone: Start: 01-07-2023 End: 02-05-[address] Clifton Hung [facility] Start: 12-17-2022 Telephone encounter Chad pollard APRN.REPAIRER RESISTANCE WELDING MACHINES Work Phone: Hematology/Oncology Comment on above: Patient Question Start: 12-11-2022 ambulatory Clifton allen MD Work Phone: [facility] [place] Comment on above: Test results Start: 12-10-2022 End: 12-10-[address] Clifton Hung Work Phone: [facility] Start: 12-10-2022 ambulatory Sima Dumont APRN.REPAIRER RESISTANCE WELDING MACHINES Work Phone: OB/Gynecology Comment on above: re: Diagnosis Start: 12-09-2022 End: 12-09-2022 Patient encounter procedure Sima Dumotn APRN.REPAIRER RESISTANCE WELDING MACHINES Work Phone: OB/Gynecology Comment on above: Vaginal discharge (P rimary Dx) Start: 12-01-2022 Non-patient / Non-visit Dr. Gabino Hung Work Phone: [facility] Start: 12-01-2022 End: 12-01-2022 Admission to same day surgery center Dr. Clifton Hung Work Phone: [facility] Start: 12-01-2022 End: 12-01-[address] Clifton Hung Work Phone: [facility] Work Phone: Start: 11-25-2022 Telephone encounter Chad pollard APRN.REPAIRER RESISTANCE WELDING MACHINES Work Phone: Hematology/Oncology Comment on above: Results Start: 11-25-2022 End: 11-25-2022 Subsequent hospital visit by physician Ct [facility] (I-Stat) Work Phone: Cat Scan Comment on above: Abnormal CT of the a bdomen [R93.5] Start: 11-23-2022 End: 11-23-[address] Clifton Hung Work Phone: [facility] Work Phone: Start: 11-23-2022 End: 11-23-[address] Clifton Hung Work Phone: [facility]Laboratory, Specimen Start: 11-19-2022 End: 11-19-[address] Clifton Hung Work Phone: [facility] Work Phone: Start: 11-19-2022 End: 11-19-[address] Clifton Hung Work Phone: [facility] Start: 11-19-2022 End: 11-19-[address] Clifton Hung Work Phone: [facility] Start: 11-14-2022 End: 11-14-2022 Patient encounter procedure Shaneka Yang APRN.REPAIRER RESISTANCE WELDING MACHINES Work Phone: [facility] Comment on above: Sore throat (Primary Dx); Acute cough Start: 11-11-2022 End: 11-11-2022 Patient encounter procedure Matthew Joaquin Work Phone: Podiatry Comment on above: Other diabetic neuro logical complication associated with type 2 diabetes mellitus (HCC) (Primary Dx); Ingrowing toenail Start: 11-02-2022 ambulatory Cherise eubanks PA-C Work Phone: [facility] Comment on above: Illness Start: 11-02-2022 End: 11-02-2022 Patient encounter procedure Shaneka Yang APRN.REPAIRER RESISTANCE WELDING MACHINES Work Phone: [facility] Comment on above: URI, acute (Primary Dx) Start: 10-28-2022 Telephone encounter Chad pollard APRN.REPAIRER RESISTANCE WELDING MACHINES Work Phone: Hematology/Oncology Comment on above: Results (Mammogram r esults) Start: 10-28-2022 End: 10-28-2022 Subsequent hospital visit by physician Diagnostic Mammo [facility] Mammogram Start: 10-05-2022 End: 10-05-2022 Patient encounter procedure Cherise Sifuentes PA-C Work Phone: [facility] Comment on above: Controlled type 2 di abetes mellitus without complication, without long-term current use of insulin (HCC) (Primary Dx); Essential hypertension; Mixed hyperlipidemia; Vitamin D deficiency; Upper back pain; Need for vaccination; 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); Ductal carcinoma in situ (DCIS) of left breast; History of hyperparathyroidism Start: 09-17-2022 Telephone encounter Clifton Hung MD Work Phone: [facility] [place] Comment on above: Results Start: 09-16-2022 ambulatory Chad lance 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 Work Phone: Hematology/Oncology Comment on above: CT Scan results test results Start: 09-16-2022 Telephone encounter Chad pollard APRN.REPAIRER RESISTANCE WELDING MACHINES Work Phone: Hematology/Oncology Comment on above: Future Appointment; Results Start: 09-15-2022 End: 09-15-2022 Subsequent hospital visit by physician Ct [facility] Cat Scan Start: 09-10-2022 ambulatory Chad lance 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 Work Phone: Hematology/Oncology Comment on above: Tamoxifen Start: 09-09-2022 ambulatory Clifton allen MD Work Phone: [facility] [place] Comment on above: Ultrasound results Start: 09-09-2022 Telephone encounter Cherise felix PA-C Work Phone: [facility] [place] Comment on above: Results Start: 09-09-2022 End: 09-09-2022 Subsequent hospital visit by physician Us [facility] Mob 2 Work Phone: Radiology Comment on above: Epigastric pain [R10 .13] Start: 09-08-2022 End: 09-08-2022 Nursing evaluation of patient and report Mi Nurse Work Phone: [facility] [place] Comment on above: Epigastric pain Start: 09-07-2022 ambulatory Clifton allen MD Work Phone: [facility] [place] Comment on above: H Pylori test Start: 09-04-2022 ambulatory Clifton allen MD Work Phone: [facility] [place] Comment on above: H Pylori test Start: 09-03-2022 End: 09-03-2022 Patient encounter procedure Clifton Hung MD Work Phone: [facility] Comment on above: Epigastric pain (Malia alex Dx); Nausea; Need for vaccination Start: 09-03-2022 End: 09-03-[address] Clifton Hung Work Phone: [facility] Start: 08-28-2022 End: 08-28-2022 ambulatory Chad Mariee APRN.REPAIRER RESISTANCE WELDING MACHINES Work Phone: Hematology/Oncology Comment on above: Breast neoplasm, Tis (DCIS), left (Primary Dx); Encounter for screening mammogram for high-risk patient; Nausea; Pain of upper abdomen Medical Tests Start: 08-28-2022 End: 08-28-2022 Patient encounter procedure Sima Duomnt APRN.REPAIRER RESISTANCE WELDING MACHINES Work Phone: OB/Gynecology Comment on above: Vaginal atrophy (Malia alex Dx); Vulvar dermatitis Start: 08-28-2022 End: 08-28-2022 Patient encounter procedure Chad Mariee APRN.REPAIRER RESISTANCE WELDING MACHINES Work Phone: [facility] Start: 08-05-2022 ambulatory Sima Dumont APRN.REPAIRER RESISTANCE WELDING MACHINES Work Phone: [facility] Start: 08-05-2022 Patient encounter procedure Alejandra Dumont APRN.REPAIRER RESISTANCE WELDING MACHINES Work Phone: OB/Gynecology Comment on above: Appointment Start: 07-15-2022 Refill Alberto Georges MD Work Phone: Hematology/Oncology Comment on above: Refill Request Start: 07-09-2022 End: 07-09-2022 Patient encounter procedure Sima Dumont APRN.REPAIRER RESISTANCE WELDING MACHINES Work Phone: OB/Gynecology Comment on above: Vagina itching (Prim teo Dx); Dysuria; Urinary frequency; Superficial dyspareunia; Mixed incontinence; Vaginal atrophy; Cystocele, midline; Long-term current use of tamoxifen Start: 07-08-2022 ambulatory Clifton allen MD Work Phone: [facility] 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 Gabino Hung Work Phone: [facility] Start: 07-07-2022 End: 07-07-[address] Clifton Hung Work Phone: [facility] Work Phone: Start: 07-07-2022 End: 07-07-[address] [facility]if[facility] Start: 07-03-2022 ambulatory Clifton allen MD Work Phone: [facility] Comment on above: Infection Start: 06-30-2022 ambulatory Clifton allen MD Work Phone: [facility] Comment on above: A new issue Start: 06-30-2022 End: 06-30-2022 Patient encounter procedure Martha Montoya PA-C Work Phone: [facility] Comment on above: Nasal lesion (Primar y Dx) Start: 06-16-2022 ambulatory Clifton allen MD Work Phone: [facility] Comment on above: infection Start: 06-03-[address] Yolande Hung [facility] Start: 05-29-2022 Non-patient / Non-visit Dr. Gabino Hung Work Phone: [facility] Start: 05-28-2022 End: 05-28-[address] Clifton Hung Work Phone: [facility] Start: 05-28-2022 End: 05-28-[address] Clifton Hung Work Phone: [facility] Start: 04-03-2022 Patient encounter status Mahesh Hung MD Work Phone: [facility] Work Phone: Start: 03-09-2022 ambulatory Chad lance APRN.REPAIRER RESISTANCE WELDING MACHINES Work Phone: Hematology/Oncology Comment on above: Tamoxifen Heartburn Start: 02-25-2022 End: 02-25-2022 ambulatory Chad Mariee APRN.REPAIRER RESISTANCE WELDING MACHINES Work Phone: Hematology/Oncology Comment on above: Breast neoplasm, Tis (DCIS), left (Primary Dx) Start: 02-25-2022 End: 02-25-2022 Patient encounter procedure Chad Mraiee APRN.REPAIRER RESISTANCE WELDING MACHINES Work Phone: [facility] Start: 02-23-2022 Documentation procedure Mammog chidi Coordinator [facility] Start: 02-23-2022 Letter encounter Mammography Coordinator [facility] Department Start: 02-23-2022 End: 02-23-2022 Subsequent hospital visit by physician Screen Mammo [facility] Mammogram Comment on above: Breast neoplasm, Tis (DCIS), left [D05.12] Start: 02-10-2022 Refill Cherise MAYS-C Work Phone: [facility] [place] Comment on above: Refill Request Start: 05-26-2021 Ophthalmic examinati on and evaluation Cherise Sifuentes PA-C Work Phone: [facility] Start: 01-21-2021 Patient encounter status Haley RODRIGUEZC Work Phone: [facility] Work Phone: Start: 10-29-2016 Patient encounter status Haley Sifuentes PA-C Work Phone: [facility] Work Phone: Procedures Date Procedure Procedure Detail Performing Clinician Start: 04-24-2025 Urnls dip stick/tablet rgnt auto w/o microscopy Francine Madrid APRN.REPAIRER RESISTANCE WELDING MACHINES Work Phone: Start: 04-19-2025 Adult depression screening assessment Cherise Sifuentes PA-C Work Phone: Start: 03-14-2025 Screening digital breast tomosynthesis bi Chad Mariee APRN.REPAIRER RESISTANCE WELDING MACHINES Work Phone: Start: 08-15-2024 Ct abdomen w/o & w/contrast material Alexa Matute MD Work Phone: Start: 08-04-2024 Urnls dip stick/tablet rgnt auto w/o microscopy Ori Lord DO Work Phone: Start: 07-04-2024 Urnls dip stick/tablet rgnt auto w/o microscopy Ori Lord DO Work Phone: Start: 06-19-2024 Colonoscopy Shakeel Yang MA Start: 05-23-2024 Urnls dip stick/tablet reagent auto microscopy Ori Lord DO Work Phone: Start: 04-25-2024 Urnls dip stick/tablet reagent auto microscopy Ori Martinio DO Work Phone: Start: 04-25-2024 Urnls dip stick/tablet rgnt auto w/o microscopy Ori Lord DO Work Phone: Start: 04-17-2024 Adult depression screening assessment Clifton Hung MD Work Phone: Start: 03-22-2024 COVID & INFLUENZA A/B & RSV NAAT, ROUTINE Clifton Hung MD Work Phone: Start: 03-22-2024 STREP A MOLECULAR (POC) Clifton Hung MD Work Phone: Start: 03-09-2024 Screening digital breast tomosynthesis bi Chad Mariee 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 Work Phone: Start: 01-18-2024 Smr prim src gram/giemsa stain bct fungi/cell Sima Dumont APRN.REPAIRER RESISTANCE WELDING MACHINES Work Phone: Start: 01-18-2024 Urnls dip stick/tablet rgnt auto w/o microscopy Sima Dumont APRN.REPAIRER RESISTANCE WELDING MACHINES Work Phone: Start: 01-03-[address] Clifton Hung Work Phone: Start: 12-22-2023 Plain chest X-ray Dr. Clifton Hung Work Phone: Start: 12-22-2023 SARS-CoV-2, Influenza & RSV (PCR) Dr. Gabino Hung Work Phone: Start: 10-01-2023 Radionuclide imaging of perfusion of myocardium under exercise stress Dr. Clifton Hung Work Phone: Start: 09-11-2023 Plain chest X-ray Dr. Clifton Hung Work Phone: Start: 09-11-2023 SARS-CoV-2 & FLU Antigen (Rapid) Dr. Graham Hung Work Phone: Start: 09-11-[address] Clifton Hung Work Phone: Start: 07-23-2023 Urnls dip stick/tablet rgnt auto w/o microscopy Sima Dumont 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 Work Phone: Start: 02-24-2023 End: 02-24-2023 Mammography Chad Mariee 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 Work Phone: Start: 12-01-[address] Clifton Hung Work Phone: Start: 11-25-2022 Ct abdomen & pelvis w/contrast material Chad Mariee 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 Work Phone: Start: 11-14-2022 STREP A MOLECULAR (POC) Shaneka Yang 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 Work Phone: Start: 11-02-2022 COVID WITH FLUA+B, ROUTINE Shaneka Eder graham 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 Work Phone: Start: 10-28-2022 GUILLERMINA DIAG W ANGELA LEFT Chad Mariee 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 Work Phone: Start: 09-09-2022 Us abdominal real time w/image limited Clifton Hung MD Work Phone: Start: 09-03-2022 INFLUENZA SEASONAL QUADRIVALENT HIGH DOSE AGE 65+ Clifton Hung MD Work Phone: Start: 07-09-2022 BACTERIAL VAGINOSIS AMPLIFICATION Sima fagan 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 Work Phone: Start: 07-09-2022 Iadna trichomonas vaginalis amplified probe tech Sima Dumont APRN.REPAIRER RESISTANCE WELDING MACHINES Work Phone: Start: 07-09-2022 Urnls dip stick/tablet rgnt auto w/o microscopy Sima Dumont APRN.REPAIRER RESISTANCE WELDING MACHINES Work Phone: Start: 07-07-2022 Radionuclide imaging of perfusion of myocardium under exercise stress Dr. Clifton Hung Work Phone: Start: 02-23-2022 End: 02-23-2022 Screening mammography bi 2-view breast inc cad Alberto Georges MD Work Phone: Start: 05-12-2021 Adult depression screening assessment Cherise Sifuentes PA-C Work Phone: Start: 02-21-2021 Mammography Cherise Sifuentes PA-C Work Phone: Start: 08-09-2018 Colonoscopy Cherise Sifuentes PA-C Work Phone: Start: 07-22-2017 End: 07-22-2017 Dietary management education, guidance, and counseling Moni Garcia Start: 07-22-2017 End: 07-22-2017 Ecg routine ecg w/least 12 lds w/i&r Ron Gomez MD Start: 07-22-2017 End: 07-22-2017 Follow Up Appt 3 months Ron Gomez MD Start: 07-22-2017 End: 07-22-2017 MMShameka Gomez MD Start: 07-22-2017 End: 07-22-2017 Electrocardiogram, complete Ron reddy MD Start: 07-22-2017 End: 07-22-2017 Follow Up Appt 3 months Ron Gomez MD Start: 07-22-2017 End: 07-22-2017 ZULLY Gomez MD Start: 04-23-2017 End: 04-23-2017 Follow Up Appt 3 months Ron Gomez MD Start: 04-23-2017 End: 04-23-2017 ZULLY Gomez MD Start: 04-23-2017 End: 04-23-2017 Dietary management education, guidance, and counseling Nancy Rodriguez RN Start: 04-23-2017 End: 04-23-2017 Follow Up Appt 3 months Ron Gomez MD Start: 04-23-2017 End: 04-23-2017 ZULLY Gomez MD Start: 03-31-2017 End: 04-21-2017 Echocardiography Ron Gomez MD Start: 03-31-2017 End: 04-21-2017 Nuclear stress test -Zandra michelle MD Start: 03-31-2017 End: 04-21-2017 Echocardiography Ron Gomez MD Start: 03-31-2017 End: 04-21-2017 Nuclear stress test -Zandra michelle MD Start: 02-19-2017 End: 04-21-2017 Lipid 1996 panel - Serum or Plasma Marisol Myers PA-C Work Phone: Start: 02-19-2017 End: 04-21-2017 Lipid panel [AGGREGATE] Nancy Myers PA-C Work Phone: Start: 01-20-2017 End: 01-20-2017 Follow Up Appt 3 months Nancy Myers PA-C Work Phone: Start: 01-20-2017 End: 01-20-2017 PFM Nancy Myers PA-C Work Phone: Start: 01-20-2017 End: 01-20-2017 Documentation of current medications Blanca Paige RN Start: 01-20-2017 End: 01-20-2017 Follow Up Appt 3 months Nancy Myers PA-C Work Phone: Start: 01-20-2017 End: 01-20-2017 PF Nancy Myers PA-C Work Phone: Start: 01-14-2017 End: 03-31-2017 Placement of stent in coronary artery Status post cardiac stent placement Moni Garcia Start: 01-14-2017 End: 03-31-2017 Placement of stent in coronary artery Status post cardiac stent placement Blanca Paige RN History of radiation therapy Sta tus post radiation therapy greater than twelve weeks ago Dr. Clifton Hung Work Phone: Plan of Treatment Date Care Activity Detail Author Start: 06-19-2034 Screening for malignant neoplasm of colon [facility] Start: 04-22-2034 Urine microalbumin profile DTaP,Tdap,Td Vaccine (3 - Td or Tdap) [facility] Start: 08-09-2028 Colonoscopy COLONOSCOPY [facility] Start: 08-09-2028 COLORECTAL CANCER SCREENING COLORECTAL CANCER SCREENING [facility] Start: 08-09-2028 Screening for malignant neoplasm of colon [facility] Start: 04-24-2026 Annual PCP Team Chronic Disease Visit Annual PCP Team Chronic Disease Visit [facility] Start: 04-19-2026 Annual PCP Team Chronic Disease Visit Annual PCP Team Chronic Disease Visit [facility] Start: 04-19-2026 Anxiety Screening Anxiety Screening [facility] Start: 04-19-2026 Depression Screening Depression Screening [facility] Start: 04-19-2026 Diabetic foot examination Diabetic Foot Exam [facility] Start: 04-06-2026 Hepatitis B screening Urine Albumin:Creatinine Ratio [facility] Start: 04-06-2026 Hepatitis B surface antibody level LDL Cholesterol [facility] Start: 03-21-2026 End: 04-20-2026 DBT Breast - bilateral screening GUILLERMINA SCREENING W ANGELA Radiology Routine Ductal carcinoma in situ (DCIS) of left breast Encounter for screening mammogram for high-risk patient Expected: 03/21/2026 (Approximate), Expires: 04/20/2026 [facility] Work Phone: Comment on above: Expected: 03/21/2026 (Approximate), Expi res: 04/20/2026 Start: 03-21-2026 End: 03-21-2026 Patient encounter procedure 03/21/2026 8:10 AM EDT Appointment Mammogram [address] [place] [address] : 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]; Encounter for screening mammogram for high-risk patient [Z12.31] Mammogram Comment on above: : Ductal carcinoma in situ (DCIS) of lef t breast [D05.12]; Encounter for screening mammogram for high-risk patient [Z12.31] Start: 03-14-2026 Screening for malignant neoplasm of breast Mammogram Screening [facility] Start: 03-12-2026 End: 03-12-2026 Patient encounter procedure 03/12/2026 8:40 AM EDT Office Visit Endocrinology [address] [place] [id number] Alexa Matute MD [address] [place] [address] 1 yr f/u-review adrenal CT 02/20/26 Endocrinology Comment on above: 1 yr f/u-review adrenal CT 02/20/26 Start: 02-20-2026 End: 05-22-2026 Corticotropin [Mass/volume] in Plasma ACTH BLD Lab Routine Disorder of adrenal gland (HCC) Expected: 02/20/2026, Expires: 05/22/2026 [facility] Comment on above: Expected: 02/20/2026, Expires: Start: 02-20-2026 End: 04-15-2026 CT Adrenal gland WO and W contrast IV CT ADRENAL WO/W IVCON Radiology Routine Disorder of adrenal gland (HCC) Expected: 02/20/2026, Expires: 04/15/2026 [facility] Work Phone: Comment on above: Expected: 02/20/2026, Expires: Start: 02-20-2026 End: 05-22-2026 DHEA-S BLD DHEA-S BLD Lab Routine Disorder of adrenal gland (HCC) Expected: 02/20/2026, Expires: 05/22/2026 [facility] Comment on above: Expected: 02/20/2026, Expires: Start: 02-20-2026 End: 02-20-2026 Patient encounter procedure 02/20/2026 8:40 AM EDT Appointment Cat Scan [address] [place] [id number] 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] Cat Scan Comment on above: 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] Start: 02-13-2026 End: 05-15-2026 Creatinine and Glomerular filtration rate.predicted panel - Serum, Plasma or Blood CREATININE BLD Lab Routine Disorder of adrenal gland (HCC) Expected: 02/13/2026, Expires: 05/15/2026 [facility] Comment on above: Expected: 02/13/2026, Expires: Start: 12-29-2025 Annual PCP Team Chronic Disease Visit Annual PCP Team Chronic Disease Visit [facility] Start: 10-23-2025 End: 10-23-2025 Patient encounter procedure 10/23/2025 9:20 AM EST Office Visit Family Israel Moya [address] [facility] [place] [address] Clifton Hung MD [address] [place] [address] 6 month f/u Family Israel Moya Comment on above: 6 month f/u Start: 10-19-2025 End: 01-18-2026 25-hydroxyvitamin D3 [Mass/volume] in Serum or Plasma VITAMIN D 25 HYDROXY Lab Routine Vitamin D deficiency Expected: 10/19/2025, Expires: 01/18/2026 [facility] Work Phone: Comment on above: Expected: 10/19/2025, Expires: Start: 10-19-2025 End: 01-18-2026 Basic metabolic 2000 panel - Serum or Plasma BASIC METABOLIC PANEL Lab Routine Controlled type 2 diabetes mellitus without complication, without long-term current use of insulin (HCC) Essential hypertension Expected: 10/19/2025, Expires: 01/18/2026 [facility] Comment on above: Expected: 10/19/2025, Expires: Start: 10-19-2025 End: 01-18-2026 Hemoglobin A1c in Blood HEMOGLOBIN A1C Lab Routine Controlled type 2 diabetes mellitus without complication, without long-term current use of insulin (HCC) Type 2 diabetes mellitus with hyperlipidemia (HCC) Expected: 10/19/2025, Expires: 01/18/2026 [facility] Comment on above: Expected: 10/19/2025, Expires: Start: 10-19-2025 End: 01-18-2026 LIPID PANEL, NONFASTING LIPID PANEL, NONFASTING Lab Routine Mixed hyperlipidemia Expected: 10/19/2025, Expires: 01/18/2026 [facility] Comment on above: Expected: 10/19/2025, Expires: Start: 10-19-2025 End: 01-18-2026 Magnesium [Mass/volume] in Serum or Plasma MAGNESIUM Lab Routine Hypomagnesemia Expected: 10/19/2025, Expires: 01/18/2026 [facility] Comment on above: Expected: 10/19/2025, Expires: Start: 10-18-2025 Annual PCP Team Chronic Disease Visit Annual PCP Team Chronic Disease Visit [facility] Start: 10-18-2025 BP Controlled (<130/80) BP Controlled (<130/80) [facility] Start: 10-18-2025 Covid-19 Vaccine () Covid-19 Vaccine () [facility] Comment on above: Postponed from 07/09/2024 (Declined at t his time) Start: 10-14-2025 Hepatitis B surface antibody level LDL Cholesterol [facility] Start: 10-07-2025 Hemoglobin A1c measurement HbA1C [facility] Start: 09-29-2025 Glaucoma screening Dilated Retinal Exam [facility] Start: 09-22-2025 BP Controlled (<130/80) BP Controlled (<130/80) [facility] Start: 09-21-2025 End: 09-21-2025 ambulatory 09/21/2025 8:30 AM EST Visit (SP) Office Hematology/Oncology [address] [place] [id number] Chad Mariee APRN.[employer] [address] [place] [address] 6MO OV* Hematology/Oncology Comment on above: 6MO OV* Start: 08-21-2025 End: 08-21-2025 Patient encounter procedure 08/21/2025 8:40 AM EDT Office Visit [facility] [address] [place], [place] [address] Ori Lord DO [address] [place] [address] 6 month NEED NEW UA, NELL [facility] Comment on above: 6 month NEED NEW UA, NELL Start: 07-20-2025 End: 07-20-2025 Patient encounter procedure 07/20/2025 1:05 PM EDT Appointment Radiology [address] [place] [address] Dx: Long-term current use of tamoxifen [Z79.810]; Encounter for screening for osteoporosis [Z13.820]; Asymptomatic postmenopausal status [Z78.0] Radiology Comment on above: Dx: Long-term current use of tamoxifen [ Z79.810]; Encounter for screening for osteoporosis [Z13.820]; Asymptomatic postmenopausal status [Z78.0] Start: 07-11-2025 BP Controlled (<130/80) BP Controlled (<130/80) [facility] Start: 07-09-2025 Influenza vaccination [facility] Start: 07-04-2025 BP Controlled (<130/80) BP Controlled (<130/80) [facility] Start: 05-07-2025 Influenza vaccination [facility] Comment on above: Postponed from 07/09/2024 (Declined at t his time) Start: 05-01-2025 BP Controlled (<130/80) BP Controlled (<130/80) [facility] Start: 04-24-2025 End: 04-24-2025 Patient encounter procedure 04/24/2025 8:00 AM EDT Office Visit Family [facility] [address] [facility] [place] [address] Francine Madrid APRN.[employer] [address] [facility], [place] [id number] UTI symptoms; Pain urination, pelvic/back pain, urinary frequency [facility] Comment on above: UTI symptoms; Pain urination, pelvic/eugene k pain, urinary frequency Start: 04-19-2025 End: 04-19-2025 Patient encounter procedure 04/19/2025 9:00 AM EDT Office Visit [facility] [address] [facility] [place] [address] Cherise Sifuentes PA-C [address] [place], [place] [id number] Medicare wellness [facility] Comment on above: Medicare wellness Start: 04-17-2025 Annual PCP Team Chronic Disease Visit Annual PCP Team Chronic Disease Visit [facility] Start: 04-17-2025 Anxiety Screening Anxiety Screening [facility] Start: 04-17-2025 Covid-19 Vaccine () Covid-19 Vaccine () [facility] Comment on above: Postponed from 07/09/2023 (Declined at t his time) Start: 04-17-2025 Depression Screening Depression Screening [facility] Start: 04-17-2025 Diabetic foot examination Diabetic Foot Exam [facility] Start: 04-17-2025 Hepatitis B screening Urine Albumin:Creatinine Ratio [facility] Start: 04-17-2025 Hepatitis B surface antibody level LDL Cholesterol [facility] Start: 04-14-2025 Hemoglobin A1c measurement HbA1C [facility] Start: 04-09-2025 End: 04-09-2025 Patient encounter procedure 04/09/2025 9:30 AM EDT Office Visit OB/Gynecology [address] [facility] [place] [address] Sima Dumont APRN.[employer] [address] [place] [address] Annual OB/Gynecology Comment on above: Annual Start: 04-06-2025 End: 07-06-2025 25-hydroxyvitamin D3 [Mass/volume] in Serum or Plasma VITAMIN D 25 HYDROXY Lab Routine Vitamin D deficiency Expected: 04/06/2025, Expires: 07/06/2025 [facility] Comment on above: Expected: 04/06/2025, Expires: Start: 04-06-2025 End: 07-06-2025 CBC W Auto Differential panel - Blood COMPLETE BLOOD COUNT AND DIFFERENTIAL Lab Routine Type 2 diabetes mellitus with hyperlipidemia (HCC) (HCC) Controlled type 2 diabetes mellitus without complication, without long-term current use of insulin (HCC) Expected: 04/06/2025, Expires: 07/06/2025 [facility] Comment on above: Expected: 04/06/2025, Expires: Start: 04-06-2025 End: 07-06-2025 Cobalamin (Vitamin B12) [Mass/volume] in Serum or Plasma VITAMIN B12 Lab Routine Medication management Gastroesophageal reflux disease without esophagitis Expected: 04/06/2025, Expires: 07/06/2025 [facility] Work Phone: Comment on above: Expected: 04/06/2025, Expires: Start: 04-06-2025 End: 07-06-2025 Comprehensive metabolic 2000 panel - Serum or Plasma COMPREHENSIVE METABOLIC PANEL Lab Routine Type 2 diabetes mellitus with hyperlipidemia (HCC) (HCC) Controlled type 2 diabetes mellitus without complication, without long-term current use of insulin (HCC) Essential hypertension Mixed hyperlipidemia Expected: 04/06/2025, Expires: 07/06/2025 [facility] Comment on above: Expected: 04/06/2025, Expires: Start: 04-06-2025 End: 07-06-2025 Hemoglobin A1c in Blood HEMOGLOBIN A1C Lab Routine Type 2 diabetes mellitus with hyperlipidemia (HCC) (HCC) Controlled type 2 diabetes mellitus without complication, without long-term current use of insulin (HCC) Expected: 04/06/2025, Expires: 07/06/2025 [facility] Comment on above: Expected: 04/06/2025, Expires: Start: 04-06-2025 End: 07-06-2025 LIPID PANEL, NONFASTING LIPID PANEL, NONFASTING Lab Routine Type 2 diabetes mellitus with hyperlipidemia (HCC) (HCC) Controlled type 2 diabetes mellitus without complication, without long-term current use of insulin (HCC) Essential hypertension Mixed hyperlipidemia Expected: 04/06/2025, Expires: 07/06/2025 [facility] Comment on above: Expected: 04/06/2025, Expires: Start: 04-06-2025 End: 07-06-2025 Magnesium [Mass/volume] in Serum or Plasma MAGNESIUM Lab Routine Medication management Gastroesophageal reflux disease without esophagitis Expected: 04/06/2025, Expires: 07/06/2025 [facility] Comment on above: Expected: 04/06/2025, Expires: Start: 04-06-2025 End: 07-06-2025 Microalbumin/Creatinine [Mass Ratio] in Urine ALBUMIN/CREATININE RATIO, URINE Lab Routine Controlled type 2 diabetes mellitus without complication, without long-term current use of insulin (HCC) Expected: 04/06/2025, Expires: 07/06/2025 [facility] Comment on above: Expected: 04/06/2025, Expires: Start: 04-06-2025 End: 07-06-2025 Urinalysis complete panel - Urine URINALYSIS, WITH MICROSCOPIC Lab Routine Type 2 diabetes mellitus with hyperlipidemia (HCC) (HCC) Controlled type 2 diabetes mellitus without complication, without long-term current use of insulin (HCC) Essential hypertension Mixed hyperlipidemia Expected: 04/06/2025, Expires: 07/06/2025 [facility] Comment on above: Expected: 04/06/2025, Expires: Start: 04-06-2025 End: 04-06-2025 ambulatory [facility] Start: 03-27-2025 Glaucoma screening Dilated Retinal Exam [facility] Start: 03-22-2025 Annual PCP Team Chronic Disease Visit Annual PCP Team Chronic Disease Visit [facility] Start: 05-15-2025 BP Controlled (<130/80) BP Controlled (<130/80) [facility] Start: 03-21-2025 End: 03-21-2025 ambulatory 03/21/2025 8:00 AM EDT Visit (SP) Office Hematology/Oncology [address] [place] [address] Chad Mariee APRN.[employer] [address] [place] [address] 6 MTH OV/MAMM 03/14* R/S FROM 03/20 Hematology/Oncology Comment on above: 6 MTH OV/MAMM 03/14* R/S FROM 03/20 Start: 03-20-2025 End: 03-20-2025 ambulatory 03/20/2025 8:00 AM EDT Visit (SP) Office Hematology/Oncology [address] [place] [address] Chad Mariee APRN.[employer] [address] [place] [address] 6 MTH OV* Hematology/Oncology Comment on above: 6 MTH OV* Start: 03-16-2025 End: 06-15-2025 Thyrotropin [Units/volume] in Serum or Plasma THYROID STIMULATING HORMONE Lab Routine Cold intolerance Expected: 03/16/2025, Expires: 06/15/2025 [facility] Comment on above: Expected: 03/16/2025, Expires: Start: 03-16-2025 End: 03-16-2025 Patient encounter procedure 03/16/2025 8:40 AM EDT Office Visit Endocrinology [address] [place] [address] Alexa Matute MD [address] [place] [address] 4 wk f/u-adrenal Endocrinology Comment on above: 4 wk f/u-adrenal Start: 03-14-2025 End: 10-14-2025 DBT Breast - bilateral screening GUILLERMINA SCREENING W ANGELA Radiology Routine Ductal carcinoma in situ (DCIS) of left breast Encounter for screening mammogram for high-risk patient Expected: 03/14/2025 (Approximate), Expires: 10/14/2025 [facility] Work Phone: Comment on above: Expected: 03/14/2025 (Approximate), Expi res: 10/14/2025 Start: 03-14-2025 End: 03-14-2025 Patient encounter procedure 03/14/2025 7:30 AM EDT Appointment Mammogram [address] [place] [address] MAMMO W ANGELA Mammogram Comment on above: MAMMO W ANGELA Start: 03-09-2025 Screening for malignant neoplasm of breast Mammogram Screening [facility] Start: 02-21-2025 End: 02-21-2025 ambulatory 02/21/2025 9:30 AM EDT Results Only [facility] [address] [place] [address] [facility] Start: 02-19-2025 End: 02-19-2025 Patient encounter procedure 02/19/2025 8:40 AM EDT Office Visit [facility] [address] [place] [id number] Ori Lord DO [address] [place] [id number] 6 mo f/u [facility] Comment on above: 6 mo f/u Start: 02-16-2025 End: 05-18-2025 Corticotropin [Mass/volume] in Plasma ACTH BLD Lab Routine Adenoma of right adrenal gland Expected: 02/16/2025, Expires: 05/18/2025 [facility] Comment on above: Expected: 02/16/2025, Expires: Start: 02-16-2025 End: 05-18-2025 Cortisol [Mass/volume] in Serum or Plasma --post dose dexamethasone CORTISOL SUPRES POST Lab Routine Adenoma of right adrenal gland Expected: 02/16/2025, Expires: 05/18/2025 [facility] Comment on above: Expected: 02/16/2025, Expires: Start: 02-16-2025 End: 05-18-2025 DEXAMETHASONE DEXAMETHASONE Lab Routine Adenoma of right adrenal gland Expected: 02/16/2025, Expires: 05/18/2025 [facility] Work Phone: Comment on above: Expected: 02/16/2025, Expires: Start: 02-14-2025 End: 02-14-2025 Patient encounter procedure 02/14/2025 9:20 AM EDT Office Visit [facility] [address] [place] [address] Ori Lord DO [address] [place] [address] 6 mo f/u [employer] Comment on above: 6 mo f/u Start: 02-09-2025 End: 02-09-2025 Patient encounter procedure 02/09/2025 9:20 AM EDT Office Visit Endocrinology [address] [place] [address] Alexa Matute MD [address] [place] [address] 2 month follow up Endocrinology Comment on above: 2 month follow up Start: 02-02-2025 End: 02-02-2025 Patient encounter procedure 02/02/2025 10:00 AM EDT Office Visit [facility] [address] [place] [address] Ori Lord DO [address] [place], [place] [address] 6 mo f/u [facility] Comment on above: 6 mo f/u Start: 01-13-2025 Annual PCP Team Chronic Disease Visit Annual PCP Team Chronic Disease Visit [facility] Start: 01-06-2025 Glaucoma screening Dilated Retinal Exam [facility] Start: 12-31-2024 Annual PCP Team Chronic Disease Visit Annual PCP Team Chronic Disease Visit [facility] Start: 11-23-2024 Annual PCP Team Chronic Disease Visit Annual PCP Team Chronic Disease Visit [facility] Start: 11-08-2024 Advance Directive Discussion Advance Directive Discussion [facility] Start: 11-03-2024 End: 02-02-2025 Corticotropin [Mass/volume] in Plasma ACTH BLD Lab Routine Adenoma of right adrenal gland Expected: 11/03/2024, Expires: 02/02/2025 [facility] Comment on above: Expected: 11/03/2024, Expires: Start: 11-03-2024 End: 11-03-2024 Patient encounter procedure 11/03/2024 8:40 AM EST Office Visit Endocrinology [address] [place] [address] Alexa Matute MD [address] [place] [address] 4 wk f/u (soonest) Endocrinology Comment on above: 4 wk f/u (soonest) Start: 10-18-2024 End: 10-18-2024 Patient encounter procedure 10/18/2024 9:20 AM EST Office Visit Family [facility] [place] [address] [place] [address] Clifton Hung MD [address] [place] [address] 6 month follow up Family [facility] [place] Comment on above: 6 month follow up Start: 10-17-2024 Hemoglobin A1c measurement HbA1C [facility] Start: 10-13-2024 End: 01-12-2025 25-hydroxyvitamin D3 [Mass/volume] in Serum or Plasma VITAMIN D 25 HYDROXY Lab Routine Vitamin D deficiency Expected: 10/13/2024, Expires: 01/12/2025 [facility] Work Phone: Comment on above: Expected: 10/13/2024, Expires: Start: 10-13-2024 End: 01-12-2025 Basic metabolic 2000 panel - Serum or Plasma BASIC METABOLIC PANEL Lab Routine Controlled type 2 diabetes mellitus without complication, without long-term current use of insulin ([facility]) Vitamin D deficiency Mixed hyperlipidemia Expected: 10/13/2024, Expires: 01/12/2025 [facility] Comment on above: Expected: 10/13/2024, Expires: Start: 10-13-2024 End: 01-12-2025 Hemoglobin A1c in Blood HEMOGLOBIN A1C Lab Routine Controlled type 2 diabetes mellitus without complication, without long-term current use of insulin ([facility]) Expected: 10/13/2024, Expires: 01/12/2025 [facility] Comment on above: Expected: 10/13/2024, Expires: Start: 10-13-2024 End: 01-12-2025 LIPID PANEL, NONFASTING LIPID PANEL, NONFASTING Lab Routine Mixed hyperlipidemia Expected: 10/13/2024, Expires: 01/12/2025 [facility] Comment on above: Expected: 10/13/2024, Expires: Start: 10-08-2024 Annual PCP Team Chronic Disease Visit Annual PCP Team Chronic Disease Visit [facility] Start: 10-03-2024 End: 10-03-2024 ambulatory 10/03/2024 8:15 AM EST Results Only [facility] [address] [place] [address] Lab Part 2 [facility] Comment on above: Lab Part 2 Start: 09-29-2024 Hepatitis B surface antibody level LDL Cholesterol [facility] Start: 09-22-2024 End: 12-22-2024 ALDOSTERONE/DIRECT RENIN RATIO ALDOSTERONE/DIRECT RENIN RATIO Lab Routine Adenoma of right adrenal gland Expected: 09/22/2024, Expires: 12/22/2024 [facility] Work Phone: Comment on above: Expected: 09/22/2024, Expires: Start: 09-22-2024 End: 12-22-2024 Corticotropin [Mass/volume] in Plasma ACTH BLD Lab Routine Adenoma of right adrenal gland Expected: 09/22/2024, Expires: 12/22/2024 [facility] Comment on above: Expected: 09/22/2024, Expires: Start: 09-22-2024 End: 12-22-2024 Cortisol [Mass/volume] in Serum or Plasma --post dose dexamethasone CORTISOL SUPRES POST Lab Routine Adenoma of right adrenal gland Expected: 09/22/2024, Expires: 12/22/2024 [facility] Comment on above: Expected: 09/22/2024, Expires: Start: 09-22-2024 End: 12-22-2024 DEXAMETHASONE DEXAMETHASONE Lab Routine Adenoma of right adrenal gland Expected: 09/22/2024, Expires: 12/22/2024 [facility] Comment on above: Expected: 09/22/2024, Expires: Start: 09-22-2024 End: 12-22-2024 DHEA-S BLD DHEA-S BLD Lab Routine Adenoma of right adrenal gland Expected: 09/22/2024, Expires: 12/22/2024 [facility] Comment on above: Expected: 09/22/2024, Expires: Start: 09-22-2024 End: 12-22-2024 Potassium [Moles/volume] in Serum or Plasma POTASSIUM Lab Routine Adenoma of right adrenal gland Expected: 09/22/2024, Expires: 12/22/2024 [facility] Comment on above: Expected: 09/22/2024, Expires: Start: 09-22-2024 End: 09-22-2024 Patient encounter procedure 09/22/2024 9:20 AM EST Office Visit Endocrinology [address] [place] [address] Alexa Matute MD [address] [place] [address] follow up Endocrinology Comment on above: follow up Start: 09-14-2024 End: 09-14-2024 ambulatory 09/14/2024 9:00 AM EST Visit (SP) Office Hematology/Oncology [address] [place] [id number] Chad Mariee APRN.[employer] [address] [place] [address] 6MO OV* Hematology/Oncology Comment on above: 6MO OV* Start: 08-15-2024 End: 08-15-2024 Patient encounter procedure 08/15/2024 9:00 AM EDT Appointment Cat Scan [address] [place] [address] 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.01]; 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] Cat Scan Comment on above: 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.01]; 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] Start: 08-08-2024 End: 08-08-2024 ambulatory 08/08/2024 8:15 AM EDT Results Only [facility] [address] [place] [address] [facility] Comment on above: Lab for CT Start: 08-04-2024 End: 08-04-2024 Patient encounter procedure 08/04/2024 10:00 AM EDT Office Visit [facility] [address] [place] [address] Ori Lord [address] [address] cysto 1 mo [facility] Comment on above: cysto 1 mo Start: 07-23-2024 BP Controlled (<130/80) BP Controlled (<130/80) [facility] Start: 07-11-2024 End: 10-10-2024 CREATININE BLD CREATININE BLD Lab Routine Adenoma of right adrenal gland Expected: 07/11/2024, Expires: 10/10/2024 [facility] Comment on above: Expected: 07/11/2024, Expires: Start: 07-11-2024 End: 07-11-2024 Patient encounter procedure 07/11/2024 1:00 PM EDT Office Visit Endocrinology [address] [place] [address] Alexa Matute MD [address] [facility] [place] [address] 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.01] Endocrinology Comment on above: 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.01] Start: 07-09-2024 Covid-19 Vaccine () Covid-19 Vaccine () [facility] Start: 07-09-2024 Covid-19 Vaccine () Covid-19 Vaccine () [facility] Start: 07-09-2024 Influenza vaccination Influenza Vaccine (#1) [facility] Start: 07-04-2024 End: 07-04-2024 Patient encounter procedure [facility] Comment on above: 6 wk FU Start: 05-23-2024 Glaucoma screening Dilated Retinal Exam [facility] Start: 05-23-2024 Hepatitis C antibody, confirmatory test DILATED RETINAL EXAM [facility] Start: 05-23-2024 End: 05-23-2024 Patient encounter procedure 05/23/2024 11:40 AM EDT Office Visit [facility] [address] [place] [address] Ori Landin [address] [place] [id number] f/u for pelvic [facility] Comment on above: f/u for pelvic Start: 04-17-2024 End: 07-17-2024 25-hydroxyvitamin D3 [Mass/volume] in Serum or Plasma [facility] Work Phone: Comment on above: Expected: 04/17/2024, Expires: Start: 04-17-2024 End: 04-17-2024 Patient encounter procedure 04/17/2024 8:40 AM EDT Office Visit Family Medicine [place] [address] [place], [place] [id number] Francine Madrid APRN.[facility] [address] [place] [address] 3 month follow up Family Medicine [facility] Comment on above: 3 month follow up Start: 04-08-2024 3 comp foot exam completed DIABETIC FOOT EXAM [facility] Start: 04-08-2024 ANNUAL PCP TEAM CHRONIC DISEASE VISIT ANNUAL PCP TEAM CHRONIC DISEASE VISIT [facility] Start: 04-08-2024 BP CONTROLLED (<130/80) BP CONTROLLED (<130/80) [facility] Start: 04-08-2024 Diabetic foot examination Diabetic Foot Exam [facility] Start: 04-02-2024 Hepatitis B screening URINE ALBUMIN:CREATININE RATIO [facility] Start: 04-02-2024 Hepatitis B surface antibody level LDL CHOLESTEROL [facility] Start: 03-29-2024 Hemoglobin A1c measurement HbA1C [facility] Start: 03-29-2024 Hemoglobin A1c/Hemoglobin.total in Blood HbA1C [facility] Start: 03-14-2024 End: 03-14-2024 ambulatory 03/14/2024 10:00 AM EDT Visit (SP) Office Hematology/Oncology [address] [place] [address] Chad Mariee APRN.[employer] [address] [place] [address] 7 MO OV/MAMM 5/2* Hematology/Oncology Comment on above: 7 MO OV/MAMM 5/2* Start: 03-09-2024 End: 03-09-2024 Patient encounter procedure 03/09/2024 8:30 AM EDT Appointment Mammogram [address] [place] [address] Mammogram Start: 02-25-2024 Mammography [facility] Start: 02-25-2024 Screening for malignant neoplasm of breast Mammogram Screening [facility] Start: 02-24-2024 Urine microalbumin profile [facility] Start: 02-10-2024 ANNUAL PCP TEAM CHRONIC DISEASE VISIT ANNUAL PCP TEAM CHRONIC DISEASE VISIT [facility] Start: 02-10-2024 BP CONTROLLED (<130/80) BP CONTROLLED (<130/80) [facility] Start: 02-06-2024 BP CONTROLLED (<130/80) BP CONTROLLED (<130/80) [facility] Start: 01-17-2024 End: 04-17-2024 C peptide [Mass/volume] in Serum or Plasma C-PEPTIDE BLD Lab Routine Hyperglycemia Pancreatic insufficiency Expected: 01/17/2024, Expires: 04/17/2024 [facility] Work Phone: Comment on above: Expected: 01/17/2024, Expires: 4 Start: 01-17-2024 End: 04-17-2024 Glutamate decarboxylase 65 Ab [Units/volume] in Serum GLUTAMIC AC DECARBOXYLASE AB Lab Routine Hyperglycemia Pancreatic insufficiency Expected: 01/17/2024, Expires: 04/17/2024 [facility] Work Phone: Comment on above: Expected: 01/17/2024, Expires: Start: 12-28-2023 [facility] Start: 12-28-2023 Respiratory secretion precautions [facility] Start: 12-22-2023 [facility] Start: 12-09-2023 BP CONTROLLED (<130/80) BP CONTROLLED (<130/80) [facility] Start: 11-08-2023 Advance Directive Discussion Advance Directive Discussion [facility] Start: 11-08-2023 Behavioral Health Screening Behavioral Health Screening [facility] Start: 11-08-2023 Depression Assessment Depression Assessment [facility] Start: 10-05-2023 ANNUAL PCP TEAM CHRONIC DISEASE VISIT ANNUAL PCP TEAM CHRONIC DISEASE VISIT [facility] Start: 10-03-2023 Hemoglobin A1c/Hemoglobin.total in Blood HBA1C [facility] Start: 09-24-2023 End: 11-24-2023 Hemoglobin A1c in Blood HGB A1C Lab Routine Controlled type 2 diabetes mellitus without complication, without long-term current use of insulin (HCC) Expected: 09/24/2023, Expires: 11/24/2023 [facility] Work Phone: Comment on above: Expected: 09/24/2023, Expires: 4 Start: 09-24-2023 End: 11-24-2023 LIPID PANEL, NONFASTING LIPID PANEL, NONFASTING Lab Routine Controlled type 2 diabetes mellitus without complication, without long-term current use of insulin (HCC) Essential hypertension Mixed hyperlipidemia 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) Expected: 09/24/2023, Expires: 11/24/2023 [facility] Work Phone: Comment on above: Expected: 09/24/2023, Expires: 4 Start: 09-15-2023 Hepatitis B surface antibody level LDL CHOLESTEROL [facility] Start: 09-11-2023 [facility] Start: 09-03-2023 ANNUAL PCP TEAM CHRONIC DISEASE VISIT ANNUAL PCP TEAM CHRONIC DISEASE VISIT [facility] Start: 09-03-2023 BP CONTROLLED (<130/80) BP CONTROLLED (<130/80) [facility] Start: 08-28-2023 BP CONTROLLED (<130/80) BP CONTROLLED (<130/80) [facility] Start: 07-09-2023 BP CONTROLLED (<130/80) BP CONTROLLED (<130/80) [facility] Start: 07-09-2023 Covid-19 Vaccine ( season) Covid-19 Vaccine () [facility] Start: 06-30-2023 BP CONTROLLED (<130/80) BP CONTROLLED (<130/80) [facility] Start: 05-30-2023 Hepatitis C antibody, confirmatory test DILATED RETINAL EXAM [facility] Start: 04-04-2023 End: 06-04-2023 25-hydroxyvitamin D3 [Mass/volume] in Serum or Plasma VITAMIN D 25 HYDROXY Lab Routine Vitamin D deficiency Expected: 04/04/2023, Expires: 06/04/2023 [facility] Work Phone: Comment on above: Expected: 04/04/2023, Expires: 3 Start: 04-04-2023 End: 06-04-2023 ALBUMIN/CREAT RATIO RND UR ALBUMIN/CREAT RATIO RND UR Lab Routine Controlled type 2 diabetes mellitus without complication, without long-term current use of insulin (HCC) Expected: 04/04/2023, Expires: 06/04/2023 [facility] Work Phone: Comment on above: Expected: 04/04/2023, Expires: 3 Start: 04-04-2023 End: 06-04-2023 CBC W Auto Differential panel - Blood CBC + DIFF Lab Routine Controlled type 2 diabetes mellitus without complication, without long-term current use of insulin (HCC) Expected: 04/04/2023, Expires: 06/04/2023 [facility] Work Phone: Comment on above: Expected: 04/04/2023, Expires: 3 Start: 04-04-2023 End: 06-04-2023 Comprehensive metabolic 2000 panel - Serum or Plasma COMP METABOLIC PANEL Lab Routine Essential hypertension Controlled type 2 diabetes mellitus without complication, without long-term current use of insulin (HCC) Expected: 04/04/2023, Expires: 06/04/2023 [facility] Work Phone: Comment on above: Expected: 04/04/2023, Expires: Start: 04-04-2023 End: 06-04-2023 Hemoglobin A1c in Blood HGB A1C Lab Routine Controlled type 2 diabetes mellitus without complication, without long-term current use of insulin (HCC) Expected: 04/04/2023, Expires: 06/04/2023 [facility] Work Phone: Comment on above: Expected: 04/04/2023, Expires: 3 Start: 04-04-2023 End: 06-04-2023 LIPID PANEL, NONFASTING LIPID PANEL, NONFASTING Lab Routine Mixed hyperlipidemia Expected: 04/04/2023, Expires: 06/04/2023 [facility] Work Phone: Comment on above: Expected: 04/04/2023, Expires: 3 Start: 04-04-2023 End: 06-04-2023 Urinalysis complete panel - Urine URINALYSIS, WITH MICROSCOPIC Lab Routine Essential hypertension Controlled type 2 diabetes mellitus without complication, without long-term current use of insulin (HCC) Expected: 04/04/2023, Expires: 06/04/2023 [facility] Work Phone: Comment on above: Expected: 04/04/2023, Expires: 3 Start: 04-03-2023 3 comp foot exam completed DIABETIC FOOT EXAM [facility] Start: 04-03-2023 ANNUAL PCP TEAM CHRONIC DISEASE VISIT ANNUAL PCP TEAM CHRONIC DISEASE VISIT [facility] Start: 04-03-2023 BP CONTROLLED (<130/80) BP CONTROLLED (<130/80) [facility] Start: 03-30-2023 Hepatitis B screening URINE ALBUMIN:CREATININE RATIO [facility] Start: 03-30-2023 Hepatitis B surface antibody level LDL CHOLESTEROL [facility] Start: 03-15-2023 Hemoglobin A1c/Hemoglobin.total in Blood HBA1C [facility] Start: 02-25-2023 BP CONTROLLED (<130/80) BP CONTROLLED (<130/80) [facility] Start: 02-23-2023 Mammography MAMMOGRAM [facility] Start: 01-16-2023 COVID-19 VACCINE (6 - Moderna series) COVID-19 VACCINE (6 - Moderna series) [facility] Start: 12-01-2022 Colonoscopy w/biopsy single/multiple COLONOSCOPY AND BIOPSY [facility] Start: 12-01-2022 Egd transoral biopsy single/multiple EGD BIOPSY SINGLE/MULTIPLE [facility] Start: 12-01-2022 Patient discharge [facility] Start: 11-08-2022 ADVANCE DIRECTIVE DISCUSSION ADVANCE DIRECTIVE DISCUSSION [facility] Start: 11-08-2022 DEPRESSION ASSESSMENT DEPRESSION ASSESSMENT [facility] Start: 09-30-2022 Hemoglobin A1c/Hemoglobin.total in Blood HBA1C [facility] Start: 09-26-2022 ANNUAL PCP TEAM CHRONIC DISEASE VISIT ANNUAL PCP TEAM CHRONIC DISEASE VISIT [facility] Start: 09-16-2022 Hepatitis B surface antibody level LDL CHOLESTEROL [facility] Start: 09-03-2022 End: 11-03-2022 Amylase [Enzymatic activity/volume] in Serum or Plasma [facility] Work Phone: Comment on above: Expected: 09/03/2022, Expires: 2 Start: 09-03-2022 End: 11-03-2022 CBC W Auto Differential panel - Blood [facility] Work Phone: Comment on above: Expected: 09/03/2022, Expires: 2 Start: 09-03-2022 End: 11-03-2022 Helicobacter pylori [Quantitative] in Stomach by urea breath test BREATH TEST H PYLORI Lab Routine Epigastric pain Expected: 09/03/2022, Expires: 11/03/2022 [facility] Work Phone: Comment on above: Expected: 09/03/2022, Expires: 2 Start: 09-03-2022 End: 11-03-2022 Hepatic function 2000 panel - Serum or Plasma [facility] Work Phone: Comment on above: Expected: 09/03/2022, Expires: 2 Start: 09-03-2022 End: 11-03-2022 Lipase [Enzymatic activity/volume] in Serum or Plasma [facility] Work Phone: Comment on above: Expected: 09/03/2022, Expires: 2 Start: 2022 ADVANCE DIRECTIVE DISCUSSION ADVANCE DIRECTIVE DISCUSSION [facility] Start: 2022 PNEUMOCOCCAL (3 - PPSV23 or PCV20) PNEUMOCOCCAL (3 - PPSV23 or PCV20) [facility] Start: 2022 PNEUMOCOCCAL: 65+ (3 - PPSV23 if available, else PCV20) PNEUMOCOCCAL: 65+ (3 - PPSV23 if available, else PCV20) [facility] Start: 2022 PNEUMOCOCCAL: 65+ (3 - PPSV23 or PCV20) PNEUMOCOCCAL: 65+ (3 - PPSV23 or PCV20) [facility] Start: 06-30-2022 End: 08-30-2022 Bacteria identified in Wound by Culture [facility] Work Phone: Comment on above: Expected: 06/30/2022, Expires: 2 Start: 06-30-2022 End: 08-30-2022 Herpes simplex virus+Varicella zoster virus DNA [Presence] in Unspecified specimen by MICHAEL with probe detection [facility] Work Phone: Comment on above: Expected: 06/30/2022, Expires: 2 Start: 05-26-2022 3 comp foot exam completed DIABETIC FOOT EXAM [facility] Start: 05-24-2022 Hepatitis C antibody, confirmatory test DILATED RETINAL EXAM [facility] Start: 05-12-2022 Adult depression screening assessment DEPRESSION SCREENING [facility] Start: 03-16-2022 Hemoglobin A1c/Hemoglobin.total in Blood HBA1C [facility] Start: 02-21-2022 Mammography MAMMOGRAM [facility] Start: 01-18-2022 Hepatitis B screening URINE ALBUMIN:CREATININE RATIO [facility] Start: 12-26-2021 COVID-19 VACCINE (5 - Booster for Moderna series) COVID-19 VACCINE (5 - Booster for Moderna series) [facility] Start: 11-08-2021 DEPRESSION ASSESSMENT DEPRESSION ASSESSMENT [facility] Start: 07-08-2018 FECAL OCCULT BLOOD FECAL OCCULT BLOOD [facility] Start: 07-08-2018 Screening for malignant neoplasm of colon Fecal Occult Blood [facility] Start: 10-25-2017 End: 10-25-2017 Appointment Appointment [facility] Work Phone: Start: 07-22-2017 End: 07-22-2017 Appointment Appointment [facility] Work Phone: Start: 07-22-2017 End: 07-22-2017 Follow Up Appt 3 months Follow Up Appt 3 months [facility] Work Phone: Start: 07-22-2017 End: 07-22-2017 MMM MMM [employer] Phone: Start: 07-22-2017 End: 07-22-2017 Follow Up Appt 3 months Follow Up Appt 3 months [facility] Work Phone: Start: 07-22-2017 End: 07-22-2017 MMM MMM [employer] Phone: Start: 2017 Hepatitis B Vaccine (1 of 3 - Risk 3-dose series) Hepatitis B Vaccine (1 of 3 - Risk 3-dose series) [facility] Start: 2017 RSV Vaccine (1 - 1-dose 60+ series) RSV Vaccine (1 - 1-dose 60+ series) [facility] Start: 04-23-2017 End: 04-23-2017 Follow Up Appt 3 months Follow Up Appt 3 months [facility] Work Phone: Start: 04-23-2017 End: 04-23-2017 MMM MMM [facility] Work Phone: Start: 04-23-2017 End: 04-23-2017 Pulmonary Function Test - complete Pulmonary Function Test - complete [facility] Work Phone: Start: 04-23-2017 End: 04-23-2017 Appointment Appointment [facility] Work Phone: Start: 04-23-2017 End: 04-23-2017 Follow Up Appt 3 months Follow Up Appt 3 months [facility] Work Phone: Start: 04-23-2017 End: 04-23-2017 MMM MMM [facility] Work Phone: Start: 04-23-2017 End: 04-23-2017 Pulmonary Function Test - complete Pulmonary Function Test - complete [facility] Work Phone: Start: 03-31-2017 End: 04-01-2017 Echocardiography Echocardiogram (complete) [facility] Work Phone: Start: 03-31-2017 End: 04-01-2017 Nuclear stress test -Lexiscan Nuclear stress test -Lexiscan [facility] Work Phone: Start: 03-31-2017 End: 04-19-2017 Echocardiography Echocardiogram (complete) [facility] Work Phone: Start: 03-31-2017 End: 04-19-2017 Nuclear stress test -Lexiscan Nuclear stress test -Lexiscan [facility] Work Phone: Start: 02-19-2017 End: 01-20-2017 *Hepatic Function Panel *Hepatic Function Panel [facility] Work Phone: Start: 02-19-2017 End: 04-21-2017 Lipid panel [AGGREGATE] *Lipid Profile CC PCP [facility] Work Phone: Start: 02-19-2017 End: 01-20-2017 *Hepatic Function Panel *Hepatic Function Panel [facility] Work Phone: Start: 02-19-2017 End: 04-21-2017 Lipid panel [AGGREGATE] *Lipid Profile CC PCP [facility] Work Phone: Start: 01-20-2017 End: 04-19-2017 Cardiac Rehab [facility] [address] [place], [address] [employer] Phone: Start: 01-20-2017 End: 01-20-2017 Cardiovascular stress test using treadmill Treadmill stress test (no imaging) [employer] Phone: Start: 01-20-2017 End: 01-20-2017 Follow Up Appt 3 months Follow Up Appt 3 months [employer] [facility] Phone: Start: 01-20-2017 End: 01-20-2017 PFM PF [employer] Phone: Start: 01-20-2017 End: 04-19-2017 [facility] [address], [address] [employer] Phone: Start: 01-20-2017 End: 01-20-2017 Cardiovascular stress test using treadmill Treadmill stress test (no imaging) [employer] Phone: Start: 01-20-2017 End: 01-20-2017 Follow Up Appt 3 months Follow Up Appt 3 months [employer] [facility] Phone: Start: 01-20-2017 End: 01-20-2017 PFM [employer] Phone: Start: 2002 COLOGUARD (FIT-DNA) COLOGUARD (FIT-DNA) [facility] Start: [address] COLONOGRAPHY [facility] Start: 2002 Screening for malignant neoplasm of colon [facility] Start: 2002 SIGMOIDOSCOPY SIGMOIDOSCOPY [facility] Start: 1975 BP CONTROLLED (<130/80) BP CONTROLLED (<130/80) [facility] Amylase [Enzymatic activity/volume] in Serum or Plasma [facility] Bacteria identified in Urine by Culture URINE CULTURE Microbiology Routine Dysuria 07/09/2022 9:15 AM [facility] Work Phone: Bacteria identified in Urine by Culture URINE CULTURE Microbiology Routine Dysuria Urine frequency 07/23/2023 11:49 AM [facility] Work Phone: Bacteria identified in Urine by Culture URINE CULTURE Microbiology Routine Dysuria Urinary frequency [facility] Bacteria identified in Urine by Culture URINE CULTURE Microbiology Routine Abnormal urinalysis 04/19/2024 10:59 AM [facility] Work Phone: Bacteria identified in Urine by Culture URINE CULTURE Microbiology Routine Microscopic hematuria 04/25/2024 10:51 AM [facility] Work Phone: Bacteria identified in Urine by Culture URINE CULTURE Microbiology Routine Urinary incontinence, mixed Ordered: 05/23/2024 [facility] Work Phone: Comment on above: Ordered: 05/23/2024 Bacteria identified in Urine by Culture BACTERIAL CULTURE, URINE Microbiology Routine Urinary tract infection with hematuria, site unspecified 04/24/2025 8:01 AM [facility] Work Phone: BACTERIAL VAGINOSIS AMPLIFICATION BACTERIAL VAGINOSIS AMPLIFICATION Lab Routine Vaginal discharge Ordered: 12/09/2022 [facility] Work Phone: Comment on above: Ordered: 12/09/2022 End: 05-09-2026 BD DXA TRABECULAR BONE SCORE (TBS) BD DXA TRABECULAR BONE SCORE (TBS) Radiology Routine Long-term current use of tamoxifen Encounter for screening for osteoporosis Asymptomatic postmenopausal status 1 Occurrences starting 04/09/2025 until 05/09/2026 [facility] Comment on above: 1 Occurrences starting 04/09/2025 until 05/09/2026 C peptide [Mass/volu me] in Serum or Plasma C-PEPTIDE BLD Lab Routine Hyperglycemia Pancreatic insufficiency 01/18/2024 2:48 PM [facility] Work Phone: CHINO / TRICHOMONA S AMPLIFICATION CHINO / TRICHOMONAS AMPLIFICATION Microbiology Routine Vaginal discharge Ordered: 12/09/2022 [facility] Work Phone: Comment on above: Ordered: 12/09/2022 Cardiac event recording [facility] Work Phone: COVID & INFLUENZA A/ B & RSV PCR, ROUTINE COVID & INFLUENZA A/B & RSV PCR, ROUTINE Microbiology Routine Acute cough Ordered: 12/29/2024 [facility] Work Phone: Comment on above: Ordered: 12/29/2024 CREATININE, 24 HOUR URINE CREATI NINE, 24 HOUR URINE Lab Routine Adenoma of right adrenal gland Ordered: 11/03/2024 [facility] Comment on above: Ordered: 11/03/2024 End: 09-27-2023 Ct abdomen & pelvis w/contrast material CT ABD/PEL W IVCON Radiology Routine Breast neoplasm, Tis (DCIS), left Nausea Pain of upper abdomen 1 Occurrences starting 08/28/2022 until 09/27/2023 [facility] Work Phone: Comment on above: 1 Occurrences starting 08/28/2022 until 09/27/2023 End: 10-16-2023 Ct abdomen & pelvis w/contrast material CT ABD/PEL W IVCON Radiology Routine Abnormal CT of the abdomen Liver 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 1 Occurrences starting 09/16/2022 until 10/16/2023 [facility] Work Phone: Comment on above: 1 Occurrences starting 09/16/2022 until 10/16/2023 End: 08-10-2025 CT Adrenal gland WO and W contrast IV CT ADRENAL WO/W IVCON Radiology Routine 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) 1 Occurrences starting 07/11/2024 until 08/10/2025 [facility] Work Phone: Comment on above: 1 Occurrences starting 07/11/2024 until 08/10/2025 End: 09-27-2023 CT CHEST W IVCON CT CHEST W IVCON Radiology Routine Breast neoplasm, Tis (DCIS), left Nausea Pain of upper abdomen 1 Occurrences starting 08/28/2022 until 09/27/2023 [facility] Work Phone: Comment on above: 1 Occurrences starting 08/28/2022 until 09/27/2023 Cystourethroscopy CYSTO.PANENDO Procedures Routine Urinary incontinence, mixed Microscopic hematuria Ordered: 08/04/2024 [facility] Work Phone: Comment on above: Ordered: 08/04/2024 End: 10-16-2023 Diagnostic mammography computer-aided detcj uni GUILLERMINA DIAGNOSTIC LT Radiology Routine Ductal carcinoma in situ (DCIS) of left breast Abnormal CT of the chest 1 Occurrences starting 09/16/2022 until 10/16/2023 [facility] Work Phone: Comment on above: 1 Occurrences starting 09/16/2022 until 10/16/2023 End: 05-09-2026 DXA Skeletal system.axial Views for bone density DXA-AXIAL SKELETON Radiology Routine Long-term current use of tamoxifen Encounter for screening for osteoporosis Asymptomatic postmenopausal status 1 Occurrences starting 04/09/2025 until 05/09/2026 [facility] Work Phone: Comment on above: 1 Occurrences starting 04/09/2025 until 05/09/2026 Glutamate decarboxyl ase 65 Ab [Units/volume] in Serum GLUTAMIC AC DECARBOXYLASE AB Lab Routine Hyperglycemia Pancreatic insufficiency 01/18/2024 2:48 PM EDT [facility] Work Phone: Helicobacter pylori [Quantitative] in Stomach by urea breath test BREATH TEST H PYLORI Lab Routine Epigastric pain 09/08/2022 9:24 AM EDT [facility] Work Phone: Lipase measurement [facility] End: 03-27-2024 GUILLERMINA SCREENING W ANGELA GUILLERMINA SCREENING W ANGELA Radiology Routine Ductal carcinoma in situ (DCIS) of left breast Encounter for screening mammogram for high-risk patient 1 Occurrences starting 02/26/2023 until 03/27/2024 [facility] Work Phone: Comment on above: 1 Occurrences starting 02/26/2023 until 03/27/2024 Microscopic observat ion [Identifier] in Vaginal fluid by Gram stain BACT/CHINO VAG GRAM STAIN Microbiology Routine Vaginal discharge Vulvovaginal discomfort 07/23/2023 11:49 AM EDT [facility] Work Phone: Patient Education [facility] Work Phone: [facility] End: 09-27-2023 Screening mammography bi 2-view breast inc cad GUILLERMINA SCREENING Radiology Routine Breast neoplasm, Tis (DCIS), left Encounter for screening mammogram for high-risk patient 1 Occurrences starting 08/28/2022 until 09/27/2023 [facility] Work Phone: Comment on above: 1 Occurrences starting 08/28/2022 until 09/27/2023 URINE FREE CORTISOL BY LC-MS/MS URINE FREE CORTISOL BY LC-MS/MS Lab Routine Adenoma of right adrenal gland Ordered: 11/03/2024 [facility] Work Phone: Comment on above: Ordered: 11/03/2024 End: 10-03-2023 Us abdominal real time w/image limited US ABD RT UPPER QUADRANT Radiology Routine Epigastric pain 1 Occurrences starting 09/03/2022 until 10/03/2023 [facility] Work Phone: Comment on above: 1 Occurrences starting 09/03/2022 until 10/03/2023 End: 10-16-2023 Us breast uni real time with image limited US BREAST LTD LT Radiology Routine Ductal carcinoma in situ (DCIS) of left breast Abnormal CT of the chest 1 Occurrences starting 09/16/2022 until 10/16/2023 [facility] Work Phone: Comment on above: 1 Occurrences starting 09/16/2022 until 10/16/2023 [facility] Immunizations Immunization Date Immunization Notes Care Provider Fa thania 04-22-2024 tetanus toxoid, redu andres diphtheria toxoid, and acellular pertussis vaccine, adsorbed Cherise MAYS-C Work Phone: [facility] 12-09-2023 respiratory syncytia l virus (RSV) vaccine, adjuvanted (AREXVY) Cherise MAYS-C Work Phone: [facility] 10-26-2023 influenza (HD-IIV4) vaccine, age 65+ yr, high dose, quadrivalent, PF (FLUZONE HIGH-DOSE) Clifton Hung MD Work Phone: [facility] 10-26-2023 influenza virus vacc ine, unspecified formulation Ori Kenyon Quanugkelby Work Phone: [facility] 10-05-2022 pneumococcal polysaccharide vaccine, 23 valent Cherise MAYS-C Work Phone: [facility] 09-18-2022 COVID-19 booster vaccine, age 12+ yr, bivalent (MODERNA) Cherise MAYS-C Work Phone: [facility] 09-03-2022 influenza, high-dose , quadrivalent vaccine (FLUZONE HIGH DOSE QUADRIVALENT) Clifton Hugn MD Work Phone: [facility] 09-01-2021 influenza, injectabl e, quadrivalent, contains preservative Cherise MAYS-C Work Phone: [facility] 12-20-2020 COVID-19 vaccine, fu ll dose (MODERNA) Cherise MAYS-C Work Phone: [facility] 11-19-2020 COVID-19 vaccine, fu ll dose (MODERNA) Cherise MAYS-C Work Phone: [facility] 10-12-2020 zoster vaccine recombinant Cherise MAYS-C Work Phone: [facility] 05-12-2020 zoster vaccine recombinant Cherise Sifuentes PA-C Work Phone: [facility] 04-12-2020 zoster vaccine recombinant Cherise Sifuentes PA-C Work Phone: [facility] 11-19-2019 COVID-19 vaccine, fu ll dose (MODERNA) Cherise Sifuentes PA-C Work Phone: [facility] 09-07-2017 influenza, seasonal, injectable Cherise RODRIGUEZC Work Phone: [facility] 06-28-2017 pneumococcal polysaccharide vaccine, 23 valent Cherise Sifuentes PA-C Work Phone: [facility] 10-05-2016 influenza, injectabl e, quadrivalent, preservative free Dr. Clifton Hung Work Phone: [facility] 10-05-2016 influenza, seasonal, injectable Dr. Clifton Hung Work Phone: [facility] 09-04-2016 influenza, seasonal, injectable Cherise MAYS-C Work Phone: [facility] 01-16-2016 pneumococcal conjuga te vaccine, 13 valent Cherise MAYS-C Work Phone: [facility] Work Phone: 09-19-2014 influenza, seasonal, injectable Cherise MAYS-C Work Phone: [facility] 02-23-2014 tetanus toxoid, redu andres diphtheria toxoid, and acellular pertussis vaccine, adsorbed Cherise MAYS-C Work Phone: [facility] 10-20-2013 influenza virus vacc ine, unspecified formulation Cherise MAYS-C Work Phone: [facility] 08-08-2009 pneumococcal polysaccharide vaccine, 23 valent Cherise MAYS-C Work Phone: [facility] Work Phone: Payers Date Payer Category Payer Self-pay [id number] 2022 Medicare HUMANA MEDICARE HU[employer]NA MEDICARE PPO [id number] 2022-[facility] [id number] [place] [address] PPO [id number] 2022 Medicare (Managed Care) POLO LO [id number] 2022 Medicare [id number] 2013 Unknown [id number] 2009 Unknown [employer] BLUE CARD PPO OOS [id number] 2009-Present [phone] [address] [place] [address] PPO [id number] 2009 Unknown [employer] BLUE CARD PPO OOS [id number] 2009-Present [phone] [place] [id number] PPO [id number] 1957 Unknown [id number] Medicare MEDICARE PART A B [id number] Unknown [id number] Unknown [id number] [id number] Unknown [id number] Unknown [id number] [id number] Unknown [id number] 2.462 Unknown [id number]. 2.462 Unknown [id number]. 2.462 Unknown [id number] 2.462 Unknown [id number] 2.462 Unknown [id number] 2.462 Unknown [id number]. 2.462 Unknown [id number] Unknown [id number] Unknown [id number] Social History Date Type Detail Facility Start: 07-21-2013 End: 07-04-2024 Tobacco smoking status NHIS Ex-smoker [facility] Start: 11-08-1991 End: 11-08-1994 History of tobacco use Current smoker [facility] Start: 11-08-1991 End: 11-08-1994 History of tobacco use Cigarette Smoker [facility] Start: 07-21-2013 End: 04-08-2023 Cigarettes smoked current (pack per day) - Reported 1.5 [facility] Start: 07-21-2013 End: 07-04-2024 Tobacco use and exposure Smokeless tobacco non-user [facility] Start: 10-22-2021 End: 04-19-2025 Alcohol intake Current non-drinker of alcohol (finding) [facility] Start: 09-25-2020 End: 09-29-2022 History SDOH Alcohol Frequency 1 [facility] Start: 09-25-2020 History SDOH Alcohol Std Drinks 98 [facility] Start: 05-20-2020 End: 09-25-2020 History SDOH Social Connections Phone 4 [facility] Start: 04-08-2020 End: 09-29-2022 History SDOH Social Connections Get Together 2 [facility] Start: 04-08-2020 End: 09-29-2022 History SDOH Social Connections Anabaptist 3 [facility] Start: 04-08-2020 End: 09-29-2022 History SDOH Physical Activity DPW 0 [facility] Start: 04-07-2020 Education 21 [facility] Start: 07-21-2013 End: 06-30-2022 Tobacco Comment smoked 3 years in mid 90s [facility] Start: 1955 Sex Assigned At Female [facility] Start: 02-13-2022 End: 10-05-2022 Exposure to SARS-CoV-2 (event) Not sure [facility] Start: 05-28-2022 End: 12-28-2023 Tobacco smoking status NHIS Unknown if ever smoked [facility] Start: 06-30-2017 None [facility] Start: 01-04-2017 Spouse/ Signif icant Other [facility] Start: 03-31-2021 Non-smoker [facility] Start: 09-29-2022 History SDOH Financial 5 [facility] Start: 09-28-2022 End: 04-08-2023 Social connection and isolation panel [facility] Do you belong to any clubs or organizations such as pentecostal groups, unions, fraternal or athletic groups, or school groups? Yes [facility] Are you now , , , , never or living with a partner? [facility] How often to you hav e a drink containing alcohol? Never [facility] How many standard drinks containing alcohol do you have on a typical day? Patient does not drink [facility] Do you feel stress - tense, restless, nervous, or anxious, or unable to sleep at night because your mind is troubled all the time - these days [OSQ] Not at all [facility] (I/We) worried wheth er (my/our) food would run out before (I/we) got money to buy more. Never true [facility] In the past 12 month s, was there a time when you were not able to pay the mortgage or rent on time? No [facility] Start: 01-16-2019 Gender identity Identifies as female gender (finding) [facility] Start: 01-16-2019 Sexual orientation Heterosexual (vu lo) [facility] How hard is it for y ou to pay for the very basics like food, housing, medical care, and heating Not very hard [facility] Do you feel stress - tense, restless, nervous, or anxious, or unable to sleep at night because your mind is troubled all the time - these days [OSQ] To some extent [facility] NEGATED: Highlighted row [facility] Goals Date Patient Goal Desired Activity /State Functional Status Date Assessment Result Facility 04-18-2025 Total score [AUDIT-C] 0 04/18/20 25 10:17 AM EDT UserJose [facility] 04-18-2025 How often to you hav e a drink containing alcohol? Never 04/18/2025 10:17 AM EDT User, Aleksandrat Never [facility] 04-18-2025 Functional status Patient does n ot drink 04/18/2025 10:17 AM EDT UserJose Patient does not drink [facility] 04-18-2025 How often do you hav e 6 or more drinks on 1 occasion? Never 04/18/2025 10:17 AM EDT UserJose Never [facility] 03-08-2015 Are you deaf, or do you have serious difficulty hearing No 03/08/2015 11:23 AM Apurva Lu Cma No [facility] 03-08-2015 Are you blind, or do you have serious difficulty seeing, even when wearing glasses No 03/08/2015 11:23 AM Apurva Lu Cma No [facility] 03-08-2015 Do you have serious difficulty walking or climbing stairs No 03/08/2015 11:23 AM Apurva Lu Cma No [facility] 03-08-2015 Do you have difficul ty dressing or bathing No 03/08/2015 11:23 AM Apurva Lu Cma No [facility] 03-08-2015 Because of a physica l, mental, or emotional condition, do you have difficulty doing errands alone such as visiting a physician's office or shopping No 03/08/2015 11:23 AM EDApurva Gracia Cma No [facility] Mental Status Date Assessment Result Facility 12-28-2023 Cognitive function Level Of Cons ciousness Awake;Alert;Appropriate [facility] Work Phone: 12-22-2023 Cognitive function Level Of Cons ciousness Awake;Alert;Appropriate;Fol lows Commands [facility] Work Phone: 09-11-2023 Cognitive function Level Of Cons ciousness Awake;Alert;Appropriate;Fol lows Commands [facility] Work Phone: 12-01-2022 Cognitive function Voice/Name [facility] Work Phone: 03-08-2015 Because of a physica l, mental, or emotional condition, do you have serious difficulty concentrating, remembering, or making decisions No 03/08/2015 11:23 AM Apurva Lu Cma No [facility] Clinical Notes 12-09-2016 to 05-17-2025 Neil Chacko CPhT - 05/17/2025 7:52 AM REYNALDOTPNicole ritter CPhT - 05/14/2025 11:06 AM EDTTelephone Encounter - Ori Moody MA - 04/26/2025 1:59 PM EDTPatient InstructionsPatient Instructions Note Date & Type Note Facility 05-17-2025 Note HNO ID: [id number] Author: NEIL CHACKO CPhT Service: ? Author Type: Parasitologist Type: Progress Notes Filed: 05/17/2025 07:54 Note Text: Patient is identified through a medication adherence outreach initiative based on pharmacy claims data from: [facility] Medication Adherence Category: Diabetes Second Attempt Medication(s) pioglitazone 15 mg due 04/01/25, filled 01/02/25 for 90 days Medication Status per portal/Epic Reconcile Dispense: Not filled Medication Status per Profile Review: No issues per profile review Patient identified by name and Outreach to patient: Sent/Responded to [employer] What was primary intervention? LVM on 05/14/25, sent [employer] message Neil Chacko CPhT [facility] Pharmacy Team [facility] 05-17-2025 History of Present illness Narrative Patient is identified through a medication adherence outreach initiative based on pharmacy claims data from: [facility] Medication Adherence Category: Diabetes Second Attempt Medication(s) pioglitazone 15 mg due 04/01/25, filled 01/02/25 for 90 days Medication Status per portal/Epic Reconcile Dispense: Not filled Medication Status per Profile Review: No issues per profile review Patient identified by name and Outreach to patient: Sent/Responded to [employer] What was primary intervention? LVM on 05/14/25, sent [employer] message Neil Chacko CPhT [facility] Based Care Pharmacy Team documented in this encounter [facility] 05-17-2025 Note Patient Outreach ( POJOHN) ---- DOM AVILA ([id number]) 1955 F Date Time Provider Department 05/17/25 CLIFTON HUNG During your visit today, we recorded the following information about you: Neil Chacko CPhT 05/17/2025 7:54 AM Signed Patient is identified through a medication adherence outreach initiative based on pharmacy claims data from: [facility] Medication Adherence Category: Diabetes Second Attempt Medication(s) pioglitazone 15 mg due 04/01/25, filled 01/02/25 for 90 days Medication Status per portal/Epic Reconcile Dispense: Not filled Medication Status per Profile Review: No issues per profile review Patient identified by name and Outreach to patient: Sent/Responded to [employer] What was primary intervention? LVM on 05/14/25, sent [employer] message Neil Chacko CPhT [facility] Pharmacy Team Allergies As of Date: 05/17/2025 Noted Allergy Reaction BRILINTA (TICAGRELOR) 06/28/2017 12 - Shortness of Breath CRESTOR (ROSUVASTATIN) 04/10/2020 17 - Myalgia KEFLEX (CEPHALEXIN) 02/02/2006 14 - Other: See Comments Comments: facial flushing LIPITOR (ATORVASTATIN) 07/21/2013 14 - Other: See Comments Comments: myalgia LOVASTATIN 07/21/2013 14 - Other: See Comments Comments: myalgia NORCO (HYDROCODONE-ACETAMINOPHEN) 10/29/2016 9 - Itching Date Reviewed: 04/24/2025 Reviewed by: Ori Moody MA - Fully Assessed Reason for Visit: Allied Health Visit [5] Cmt: Medication Adherence Outreach Prescriptions as of 05/17/2025 - estradiol (ESTRACE) 0.01 % (0.1 mg/gram) vaginal cream Use 1 g vaginally as directed. insert 1 gm vaginally twice weekly - metoprolol tartrate, short acting, (LOPRESSOR) 25 mg tablet Take 25 mg by mouth two times a day. - amLODIPine (NORVASC) 5 mg tablet Take 1 tablet by mouth once daily. - dicyclomine (BENTYL) 20 mg tablet Take 20 mg by mouth four times a day as needed (IBS symptoms). - tamoxifen (NOLVADEX) 20 mg tablet TAKE 1 TABLET ONE TIME DAILY - omeprazole (PRILOSEC) 40 mg capsule Take 1 capsule by mouth once daily. - ezetimibe (ZETIA) 10 mg tablet Take 1 tablet by mouth once daily. - pioglitazone (ACTOS) 15 mg tablet Take 1 tablet by mouth once daily. - OTC NUTRITIONAL SUPPLEMENT vitamin - coenzyme Q10 (COENZYME Q-10) 100 mg cap capsule Take 100 mg by mouth once daily. - ofnule-ztcavsiu-tiefddp (CREON 36) 36,000-114,000- 180,000 unit delayed release capsule Take 2-3 capsules by mouth with meals and at bedtime. - lisinopril (ZESTRIL) 40 mg tablet Take 40 mg by mouth once daily. - Calcium Citrate-Vitamin D3 (CITRACAL+D) 315 mg-6.25 mcg (250 unit) tab Take 2 tablets by mouth once daily. - metFORMIN (GLUCOPHAGE) 500 mg tablet Take 2 tablets by mouth twice daily with meals. - ammonium lactate (LAC-HYDRIN) 12 % lotion Apply 1 application to affected area twice daily as needed. - Clobetasol Propionate 0.05 % gel Apply 1 application to affected area as needed. - acetaminophen (TYLENOL) 500 mg tablet Take 1,000 mg by mouth every 8 hours as needed. - nitroglycerin sublingual (NITROQUICK) 0.4 mg SL tablet Dissolve 1 tablet under the tongue every 5 minutes as needed for Chest Pain. - ketoconazole (NIZORAL) 2 % shampoo Apply 1 application to affected area once daily as needed. - montelukast (SINGULAIR) 10 mg tablet Take 10 mg by mouth daily at bedtime. - LACTOBACILLUS ACIDOPHILUS (PROBIOTIC ORAL) Take 1 tablet by mouth once daily. 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] 01/16/2016 Diabetic eye exam (HCC) [Z01.00, E11.9] 01/16/2016 Colon cancer screening [Z12.11] 01/16/2016 Controlled type 2 diabetes mellitus without com*10/22/2016 Atherosclerosis of curyung coronary artery with *01/09/2017 S/P angioplasty with stent [Z95.820] 01/09/2017 Meniere disease, right [H81.01] 10/29/2017 History of transient ischemic attack (TIA) [Z86*10/29/2017 Garibay's cyst of knee, left [M71.22] 03/02/2018 Psoriasis [L40.9] Ductal carcinoma in situ (DCIS) of left breast *05/26/2021 Irritable bowel syndrome with diarrhea [K58.0] 05/26/2021 Foot callus [L84] 05/26/2021 Other skin changes [R23.8] 09/26/2021 RLS (restless legs syndrome) [G25.81] 02/22/2023 Encounter for Medicare annual wellness exam [Z0*04/08/2023 Pancreatic insufficiency [K86.89] 04/08/2023 Living will on file at physician's office [Z78.*04/08/2023 Advanc (more content not included)... [facility] 05-14-2025 Note HNO ID: [id number] Author: NICOLE SEXTON CPhT Service: ? Author Type: Parasitologist Type: Progress Notes Filed: 05/14/2025 11:18 Note Text: Patient is identified through a medication adherence outreach initiative based on pharmacy claims data from: [facility] Medication Adherence Category: Diabetes First Review Attribution Status: Correct attribution Medication(s) Pioglitazone 15 mg Medication Status per portal/Epic Reconcile Dispense: Not filled Medication Status per Profile Review: No issues per profile review Patient/provider appropriate for outreach? Yes Patient identified by name and Outreach to patient: Left Voicemail/message for return call What was primary intervention? No intervention Nicole Sexton CPhT [facility] Pharmacy Team [facility] 05-14-2025 History of Present illness Narrative Patient is identified through a medication adherence outreach initiative based on pharmacy claims data from: [facility] Medication Adherence Category: Diabetes First Review Attribution Status: Correct attribution Medication(s) Pioglitazone 15 mg Medication Status per portal/Epic Reconcile Dispense: Not filled Medication Status per Profile Review: No issues per profile review Patient/provider appropriate for outreach? Yes Patient identified by name and Outreach to patient: Left Voicemail/message for return call What was primary intervention? No intervention Nicole Sexton CPhT [facility] Team documented in this encounter [facility] 05-14-2025 Note Patient Outreach ( POHE) ---- AUSTINDOM Vel ([id number]) 1955 F Date Time Provider Department 05/14/25 CLIFTON HUNG During your visit today, we recorded the following information about you: Nicole Sexton CPhT 05/14/2025 11:18 AM Signed Patient is identified through a medication adherence outreach initiative based on pharmacy claims data from: [facility] Medication Adherence Category: Diabetes First Review Attribution Status: Correct attribution Medication(s) Pioglitazone 15 mg Medication Status per portal/Epic Reconcile Dispense: Not filled Medication Status per Profile Review: No issues per profile review Patient/provider appropriate for outreach? Yes Patient identified by name and Outreach to patient: Left Voicemail/message for return call What was primary intervention? No intervention Nicole Sexton CPhT [facility] Team Allergies As of Date: 05/14/2025 Noted Allergy Reaction BRILINTA (TICAGRELOR) 06/28/2017 12 - Shortness of Breath CRESTOR (ROSUVASTATIN) 04/10/2020 17 - Myalgia KEFLEX (CEPHALEXIN) 02/02/2006 14 - Other: See Comments Comments: facial flushing LIPITOR (ATORVASTATIN) 07/21/2013 14 - Other: See Comments Comments: myalgia LOVASTATIN 07/21/2013 14 - Other: See Comments Comments: myalgia NORCO (HYDROCODONE-ACETAMINOPHEN) 10/29/2016 9 - Itching Date Reviewed: 04/24/2025 Reviewed by: Ori Moody MA - Fully Assessed Reason for Visit: Allied Health Visit [5] Cmt: Medication Adherence Outreach Prescriptions as of 05/14/2025 - estradiol (ESTRACE) 0.01 % (0.1 mg/gram) vaginal cream Use 1 g vaginally as directed. insert 1 gm vaginally twice weekly - metoprolol tartrate, short acting, (LOPRESSOR) 25 mg tablet Take 25 mg by mouth two times a day. - amLODIPine (NORVASC) 5 mg tablet Take 1 tablet by mouth once daily. - dicyclomine (BENTYL) 20 mg tablet Take 20 mg by mouth four times a day as needed (IBS symptoms). - tamoxifen (NOLVADEX) 20 mg tablet TAKE 1 TABLET ONE TIME DAILY - omeprazole (PRILOSEC) 40 mg capsule Take 1 capsule by mouth once daily. - ezetimibe (ZETIA) 10 mg tablet Take 1 tablet by mouth once daily. - pioglitazone (ACTOS) 15 mg tablet Take 1 tablet by mouth once daily. - OTC NUTRITIONAL SUPPLEMENT vitamin - coenzyme Q10 (COENZYME Q-10) 100 mg cap capsule Take 100 mg by mouth once daily. - ghznsk-vjonstfn-bzftoni (CREON 36) 36,000-114,000- 180,000 unit delayed release capsule Take 2-3 capsules by mouth with meals and at bedtime. - lisinopril (ZESTRIL) 40 mg tablet Take 40 mg by mouth once daily. - Calcium Citrate-Vitamin D3 (CITRACAL+D) 315 mg-6.25 mcg (250 unit) tab Take 2 tablets by mouth once daily. - metFORMIN (GLUCOPHAGE) 500 mg tablet Take 2 tablets by mouth twice daily with meals. - ammonium lactate (LAC-HYDRIN) 12 % lotion Apply 1 application to affected area twice daily as needed. - Clobetasol Propionate 0.05 % gel Apply 1 application to affected area as needed. - acetaminophen (TYLENOL) 500 mg tablet Take 1,000 mg by mouth every 8 hours as needed. - nitroglycerin sublingual (NITROQUICK) 0.4 mg SL tablet Dissolve 1 tablet under the tongue every 5 minutes as needed for Chest Pain. - ketoconazole (NIZORAL) 2 % shampoo Apply 1 application to affected area once daily as needed. - montelukast (SINGULAIR) 10 mg tablet Take 10 mg by mouth daily at bedtime. - LACTOBACILLUS ACIDOPHILUS (PROBIOTIC ORAL) Take 1 tablet by mouth once daily. 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] 01/16/2016 Diabetic eye exam (HCC) [Z01.00, E11.9] 01/16/2016 Colon cancer screening [Z12.11] 01/16/2016 Controlled type 2 diabetes mellitus without com*10/22/2016 Atherosclerosis of curyung coronary artery with *01/09/2017 S/P angioplasty with stent [Z95.820] 01/09/2017 Meniere disease, right [H81.01] 10/29/2017 History of transient ischemic attack (TIA) [Z86*10/29/2017 Garibay's cyst of knee, left [M71.22] 03/02/2018 Psoriasis [L40.9] Ductal carcinoma in situ (DCIS) of left breast *05/26/2021 Irritable bowel syndrome with diarrhea [K58.0] 05/26/2021 Foot callus [L84] 05/26/2021 Other skin changes [R23.8] 09/26/2021 RLS (restless legs syndrome) [G25.81] 02/22/2023 Encounter for Medicare annual wellness exam [Z0*04/08/2023 Pancreatic insufficiency [K86.89] 04/08/2023 Living will on file at physician's (more content not included)... [facility] 04-26-2025 Telephone encounter Note Pt notified and verbalized understanding Ori Moody MA [facility] 04-26-2025 Miscellaneous Notes Pt notified and verbalized understanding Ori Moody MA Please let patient know her culture is positive for bacterial growth and she should continue current antibiotics. documented in this encounter [facility] 04-26-2025 Telephone encounter Note Please let patient know her culture is positive for bacterial growth and she should continue current antibiotics. [facility] 04-24-2025 Note HNO ID: [id number] Author: FRANCINE MADRID APRN.CNP Service: ? Author Type: Nurse Practitioner Type: Progress Notes Filed: 04/24/2025 08:07 Note Text: Chief Complaint Patient presents with: UTI: X3 days HPI Dom Avila is a 69 year old female who presents here today for Above Complaints.. Patient presents for 3 day history of UTI symptoms including Past medical history, appointments, medications, allergies reviewed. 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 Cataract Coitus painful for female Have already addressed Colon polyp 2011 Controlled type 2 diabetes [...] Female pattern hair loss Foot callus 05/26/2021 Gastroesophageal reflux disease without esophagitis 10/18/2024 History of colon polyps History of depression when History of hyperparathyroidism History of transient ischemic attack (TIA) 10/29/2017 06/29/2017 - R homonomous hemianopia with aphasia for couple hours - negative MRI/A following day Irritable bowel syndrome with diarrhea 05/26/2021 Living will on file at physician's office 04/08/2023 DPA: Carmella () Meniere disease, right 10/29/2017 Mixed hyperlipidemia 05/31/2009 statin intolerance 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 Has been on provigil for 5-10 yrs Obstructive sleep apnea on CPAP Sibilia Other skin changes 09/26/2021 Seeing yosef Pancreatic insufficiency (HCC) 04/08/[address] Alcantar Psoriasis RLS (restless legs syndrome) 02/22/[address] Aysha Laurent with ocular symptoms S/P angioplasty with stent 01/09/2017 stents to mid and proximal left anterior descending Art, and angio of ostium of #2 diagonal Scalp itch Seasonal allergies Dr Pompa Type 2 diabetes mellitus with hyperlipidemia ([facility]) 04/17/2024 Uterine fibroid 1994? Hysterectomy at age 41 Uterine polyp No longer an issue Vitamin D deficiency 2012 Well adult exam 01/16/2016 Last done: 09/08/2018 Previous Surgical History PAST SURGICAL HISTORY Procedure Laterality Date 2D ECHO (EXEP) 06/30/2017 EF=65%, trivial CT, TI and 1+ PI Unchanged from 04/2017 2D ECHO (EXEP) 05/14/2021 EF=60%, 1+ TI, trival CT, AI, PI 2D ECHO (EXEP) 09/16/2021 EF=60%, [...] cancer) Mother Coronary Artery Disease Father 25 CT @ 25. CABG Diabetes Father Diabetes Paternal Grandmother Diabetes Maternal Grandfather other (Lung cancer) Brother other (suicide) Son may of been depression Patient Allergies ALLERGIES Allergen Reactions (more content not included)... [facility] 04-24-2025 History of Present illness Narrative Chief Complaint Patient presents with: UTI: X3 days HPI Dom Avila is a 69 year old female who presents here today for Above Complaints.. Patient presents for 3 day history of UTI symptoms including Past medical history, appointments, medications, allergies reviewed. 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 Cataract Coitus painful for female Have already addressed Colon polyp 2011 Controlled type 2 diabetes [...] Female pattern hair loss Foot callus 05/26/2021 Gastroesophageal reflux disease without esophagitis 10/18/2024 History of colon polyps History of depression when History of hyperparathyroidism History of transient ischemic attack (TIA) 10/29/2017 06/29/2017 - R homonomous hemianopia with aphasia for couple hours - negative MRI/A following day Irritable bowel syndrome with diarrhea 05/26/2021 Living will on file at physician's office 04/08/2023 DPA: Carmella () Meniere disease, right 10/29/2017 Mixed hyperlipidemia 05/31/2009 statin intolerance 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 Has been on provigil for 5-10 yrs Obstructive sleep apnea on CPAP Sibilia Other skin changes 09/26/2021 Seeing derm Pancreatic insufficiency (HCC) 04/08/[address] Alcantar Psoriasis RLS (restless legs syndrome) 02/22/[address] Aysha Laurent with ocular symptoms S/P angioplasty with stent 01/09/2017 stents to mid and proximal left anterior descending Art, and angio of ostium of #2 diagonal Scalp itch Seasonal allergies Dr Pompa Type 2 diabetes mellitus with hyperlipidemia ([facility]) 04/17/2024 Uterine fibroid 1994? Hysterectomy at age 41 Uterine polyp No longer an issue Vitamin D deficiency 2012 Well adult exam 01/16/2016 Last done: 09/08/2018 Previous Surgical History PAST SURGICAL HISTORY Procedure Laterality Date 2D ECHO (EXEP) 06/30/2017 EF=65%, trivial CT, TI and 1+ PI Unchanged from 04/2017 2D ECHO (EXEP) 05/14/2021 EF=60%, 1+ TI, trival CT, AI, PI 2D ECHO (EXEP) 09/16/2021 EF=60%, [...] cancer) Mother Coronary Artery Disease Father [address] CT @ 25. CABG Diabetes Father Diabetes Paternal Grandmother Diabetes Maternal Grandfather other (Lung cancer) Brother other (suicide) Son may of been depression Patient Allergies ALLERGIES Allergen Reactions Brilinta [Ticagrelo* Shortness of Breath Crestor [Rosuvastat* Myalgia Keflex [Cephalexin] Other: See Comments facial flushing Lipitor [Atorvastat* Other: See Comments myalgia Lovastatin Other: See Comments myalgia Hughes [Hydrocodone-* Itching Current Medications Current Outpatient Medications on File Prior to Visit Medication Sig estradiol (ESTRACE) 0.01 % (0.1 mg/gram) vaginal cream Use 1 g vaginally as directed. insert 1 gm vaginally twice weekly metoprolol tartrate, short acting, (LOPRESSOR) 25 mg tablet Take 25 mg by mouth two times a day. amLODIPine (NORVASC) 5 mg tablet Take 1 tablet by mouth once daily. (Patient taking differently: Take 1 tablet by mouth once daily. Patient taking 2.5mg in the morning and 2.5mg after dinner at night.) dicyclomine (BENTYL) 20 mg tablet Take 20 mg by mouth four times a day as needed (IBS symptoms). tamoxifen (NOLVADEX) 20 mg tablet TAKE 1 TABLET ONE TIME DAILY omeprazole (PRILOSEC) 40 mg capsule Take 1 capsule by mouth once daily. ezetimibe (ZETIA) 10 mg tablet Take 1 tablet by mouth once daily. pioglitazone (ACTOS) 15 mg tablet Take 1 tablet by mouth once daily. OTC NUTRITIONAL SUPPLEMENT vitamin coenzyme Q10 (COENZYME Q-10) 100 mg cap capsule Take 100 mg by mouth once daily. npbysl-ewogjcrz-sbqmccm (CREON 36) 36,000-114,000- 180,000 unit delayed release capsule Take 2-3 capsules by mouth with meals and at bedtime. lisinopril (ZESTRIL) 40 mg tablet Take 40 mg by mouth once daily. Calcium Citrate-Vitamin D3 (CITRACAL+D) 315 mg-6.25 mcg (250 unit) tab Take 2 tablets by mouth once daily. metFORMIN (GLUCOPHAGE) 500 mg tablet Take 2 tablets by mouth twice daily with meals. ammonium lactate (LAC-HYDRIN) 12 % lotion Apply 1 application to affected area twice daily as needed. Clobetasol Propionate 0.05 % gel Apply 1 application to affected area as needed. acetaminophen (TYLENOL) 500 mg tablet Take 1,000 mg by mouth every 8 hours as needed. nitroglycerin sublingual (NITROQUICK) 0.4 mg SL tablet Dissolve 1 tablet under the tongue every 5 minutes as needed for Chest Pain. ketoconazole (NIZORAL) 2 % shampoo Apply 1 application to affected area once daily as needed. montelukast (SINGULAIR) 10 mg tablet Take 10 mg by mouth daily at bedtime. LACTOBACILLUS ACIDOPHILUS (PROBIOTIC ORAL) Take 1 tablet by mouth once daily. CPAP (Patient taking differently: No sig reported) No current facility-administered medications on file prior to visit. Social History Social History Tobacco Use Smoking status: Former Current packs/day: 0.00 Average packs/day: 1.5 packs/day for 3.0 years (4.5 ttl pk-yrs) Types: Cigarettes Start date: 11/08/1991 Quit date: 11/08/1994 Years since quittin.4 Smokeless tobacco: Never Tobacco comments: smoked 3 years in mid 90s Vaping Use Vaping status: Never Used Substance Use Topics Alcohol use: No Drug use: No Review of Symptoms REVIEW OF SYSTEMS SEE HPI EXAM: BP 138/76 Pulse 68 Wt 63 kg (138 lb 14.2 oz) BMI 24.92 kg/m General Appearance: Well appearing, alert, in no acute distress, well-hydrated, well nourished.. Abdomen: Negative findings: umbilicus normal, symmetric, no masses palpable, and no organomegaly, Positive findings: tenderness mild LLQ. Health Maintenance List Covid-19 Vaccine( season) due on 10/18/2025 Influenza Vaccine(Season Ended) due on 07/09/2025 Dilated Retinal Exam due on 09/29/2025 HbA1C due on 10/07/2025 Mammogram Screening due on 03/14/2026 Urine Albumin:Creatinine Ratio due on 04/06/2026 LDL Cholesterol due on 04/06/2026 Diabetic Foot Exam due on 04/19/2026 Annual PCP Team Chronic Disease Visit due on 04/19/2026 Depression Screening due on 04/19/2026 Anxiety Screening due on 04/19/2026 DTaP,Tdap,Td Vaccine(3 - Td or Tdap) due on 04/22/2034 Colorectal Cancer Screening due on 06/19/2034 Bone Density Screening Completed Advance Directive Discussion Completed RSV Vaccine Completed Medicare Advantage Annual Wellness Visit Completed Hepatitis C Screening Completed Shingrix Vaccine Completed Pneumococcal Vaccine: 50+ Completed Cervical Cancer Screening Discontinued Data reviewed Latest Ref Rng 04/24/2025 GLUCOSE UA (POCT) Negative mg/dL Negative BILIRUBIN UA (POCT) Negative Small ! KETONE UA (POCT) Negative mg/dL Trace SPECIFIC GRAVITY UA (POCT) 1.005 - 1.030 >=1.030 HEMOGLOBIN/BLOOD UA (POCT) Negative Large ! PH UA (POCT) 4.5 - 8.0 5.5 PROTEIN UA (POCT) Negative mg/dL >=300 ! UROBILINOGEN UA (POCT) Normal E.U./dL 0.2 NITRITE UA (POCT) Negative Negative LEUKOCYTES UA (POCT) Negative Small ! COLOR UA (POCT) Yellow CLARITY UA (POCT) Clear Legend: ! Abnormal ASSESSMENT/PLAN: 1. Urinary frequency - ICD9: 788.41, ICD10: R35.0 (primary diagnosis) acute - UA positive for yung esterase, hematuria, and proteinuria - UA DIP, URINE (POC) 2. Urinary tract infection with hematuria, site unspecified - ICD9: 599.0, 599.70, ICD10: N39.0, R31.9 acute - Send urine for culture - Begin treatment with Macrobid 100 mg BID for 5 days - Patient education for prevention given - BACTERIAL CULTURE, URINE - NITROFURANTOIN MONOHYDRATE & MACROCRYSTAL 100 MG ORAL CAP Francine Madrid APRN.REPAIRER [employer]ISTANCE [employer]ACH[employer]ES documented in this encounter [facility] 04-19-2025 Instructions Cherise Sifuentes PA-C - 04/19/2025 9:32 AM EDT Please schedule bone density scan. Follow up in 6 months routine with labs prior. WHAT YOU CAN DO TO PREVENT FALLS Many falls can be prevented. By making some changes, you can lower your chances of falling. Four things YOU can do to prevent falls for you* and your caregiver 1. Begin a regular exercise program Exercise is one of the most important ways to lower your chances of falling. It makes you stronger and helps you feel better. Exercises that improve balance and coordination (like Arnaldo Chi) are the most helpful. Lack of exercise leads to weakness and increases your chances of falling. Ask your doctor or health care provider about the best type of exercise program for you. 2. Have your health care provider review your medicines Have your doctor or pharmacist review all the medicines you take, even [id number]-tzbkaxr medicines. As you get older, the way medicines work in your body can change. Some medicines, or combinations of medicines, can make you sleepy or dizzy and can cause you to fall. 3. Have your vision checked Have your eyes checked by an eye doctor at least once a year. You may be wearing the wrong glasses or have a condition like glaucoma or cataracts that limits your vision. Poor vision can increase your chances of falling. 4. Make your home safer About half of all falls happen at home. To make your home safer: Remove things you can trip over (like papers, books, clothes, and shoes) from stairs and places where you walk. Remove small throw rugs or use double-sided tape to keep the rugs from slipping. Keep items you use often in cabinets you can reach easily without using a step stool. Have grab bars put in next to your toilet and in the tub or shower. Use non-slip mats in the bathtub and on shower floors. Improve the lighting in your home. As you get older, you need brighter lights to see well. Hang light-weight curtains or shades to reduce glare. Have handrails and lights put in on all staircases. Wear shoes both inside and outside the house. Avoid going barefoot or wearing slippers. For more information, contact: Centers for Disease Control and Prevention www.cdc.gov/injury * This information may not apply if you have certain medical conditions. documented in this encounter [facility] 04-19-2025 Note HNO ID: [id number] Author: CHERISE SIFUENTES PA-C Service: ? Author Type: Physician Head Counselor Type: Progress Notes Filed: 04/19/2025 11:27 Note Text: Dom Avila is a 69 year old female here for a Medicare wellness visit. Medicare Health Risk Assessment General Health Good Exercise: Minutes/Day Patient declined Exercise: Days/Week Patient declined Alcohol: Daily Use Never Alcohol: Drinks/Day Patient does not drink Alcohol: 6 or more drinks Never Feel off balance No Concerns: Teeth/Dentures No Concerns: Sexual function No Troubled by feelings None of the above Frequency: Eating healthy diet Several days ADLs requiring help None of the above Safety precautions in home/vehicle Yes Smoke, vape, chews tobacco No Difficulty hearing Yes, I wear a hearing aid Difficulty seeing No Current Providers Specialists: I have reviewed specialist-related care of the patient in the medical record. Medical/Family history review Reviewed and updated problem list, medical/surgical/family/social history, medications, and allergies. Opioid use review Opioid Medications (last 90 days) No data to display Anxiety/Depression screening PHQ-2 Score: 0 (Lower risk for depression) AMELIA-7 Score: 0. Recommendation: no further intervention at this time Cognitive screening Mini Cog Score: 5 Cognitive screening reviewed and No further action needed (score 3-5). Functional Observation Was the patient's Timed Up AND Go test unsteady or >= 12 seconds? No Advance Care Planning Surrogate decision maker and/or advance care plan documented Measurements BP 136/72 (BP Site: Left Arm, BP Position: Sitting, BP Cuff Size: Regular Adult) Pulse (!) 58 Temp 36.2 ?C (97.2 ?F) Resp 16 Ht 159 cm (5' 2.6) Wt 64.9 kg (143 lb) SpO2 98% BMI 25.66 kg/m? Vision Screening: Follows with optometry/ophthalmology Assessment/Plan Medicare annual wellness visit, subsequent (Z00.00) - Counseled on healthy diet and regular exercise - Fall avoidance information provided - Personalized prevention plan provided Chief Complaint Patient presents with: Medicare Wellness Exam HPI Dom Avila is a 69 year old female who presents here today for extensive exam. Patient with hx of HTN, hyperlipidemia, SEBAS, DM2, CAD, hyperparathyroid, hx of breast cancer, and those as below. Patient doing well overall. She is following endocrine for a benign adrenal mass and will see them in 1 yr for repeat imaging. Past medical history, appointments, medications, allergies reviewed. 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 Encounter for Medicare annual wellness exam 04/08/2023 Medicare Part B: 07/09/2022 Last done: 04/08/2023 Essential hypertension 01/16/2016 Female pattern hair loss Foot callus 05/26/2021 Gastroesophageal reflux disease without esophagitis 10/18/2024 History of colon polyps History of depression when History of hyperparathyroidism History of transient ischemic attack (TIA) 10/29/2017 06/29/2017 - R homonomous hemianopia with aphasia for couple hours - negative MRI/A following day Irritable bowel syndrome with diarrhea 05/26/2021 Living will on file at physician's office 04/08/2023 DPA: Carmella () Meniere disease, right 10/29/2017 Mixed hyperlipidemia 05/31/2009 statin intolerance 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 Has been on provigil for 5-10 yrs Obstructive sleep apnea on CPAP Sibilia Other skin changes 09/26/2021 Seeing derm Pancreatic insufficiency (HCC) 04/08/[address] Alcantar Psoriasis RLS (restless legs syndrome) 02/22/[address] Aysha Laurent with ocular symptoms S/P angioplasty with stent 01/09/2017 stents to mid and proximal left anterior descending Art, and angio of ostium of #2 diagonal Scalp itch Seasonal allergies Dr Pompa Type 2 diabetes mellitus with hyperlipidemia ([facility]) 04/17/2024 Uterine fibroid 1994? Hysterectomy at age 41 Uterine polyp No longer an issue Vitamin D deficiency 2013 Well adult exam 01/16/2016 Last done: 09/08/2018 Previous (more content not included)... [facility] 04-19-2025 History of Present illness Narrative Dom Avila is a 69 year old female here for a Medicare wellness visit. Medicare Health Risk Assessment General Health Good Exercise: Minutes/Day Patient declined Exercise: Days/Week Patient declined Alcohol: Daily Use Never Alcohol: Drinks/Day Patient does not drink Alcohol: 6 or more drinks Never Feel off balance No Concerns: Teeth/Dentures No Concerns: Sexual function No Troubled by feelings None of the above Frequency: Eating healthy diet Several days ADLs requiring help None of the above Safety precautions in home/vehicle Yes Smoke, vape, chews tobacco No Difficulty hearing Yes, I wear a hearing aid Difficulty seeing No Current Providers Specialists: I have reviewed specialist-related care of the patient in the medical record. Medical/Family history review Reviewed and updated problem list, medical/surgical/family/social history, medications, and allergies. Opioid use review Opioid Medications (last 90 days) No data to display Anxiety/Depression screening PHQ-2 Score: 0 (Lower risk for depression) AMELIA-7 Score: 0. Recommendation: no further intervention at this time Cognitive screening Mini Cog Score: 5 Cognitive screening reviewed and No further action needed (score 3-5). Functional Observation Was the patient's Timed Up & Go test unsteady or >= 12 seconds? No Advance Care Planning Surrogate decision maker and/or advance care plan documented Measurements BP 136/72 (BP Site: Left Arm, BP Position: Sitting, BP Cuff Size: Regular Adult) Pulse (!) 58 Temp 36.2 C (97.2 F) Resp 16 Ht 159 cm (5' 2.6) Wt 64.9 kg (143 lb) SpO2 98% BMI 25.66 kg/m Vision Screening: Follows with optometry/ophthalmology Assessment/Plan Medicare annual wellness visit, subsequent (Z00.00) - Counseled on healthy diet and regular exercise - Fall avoidance information provided - Personalized prevention plan provided Chief Complaint Patient presents with: Medicare Wellness Exam HPI Dom Avila is a 69 year old female who presents here today for extensive exam. Patient with hx of HTN, hyperlipidemia, SEBAS, DM2, CAD, hyperparathyroid, hx of breast cancer, and those as below. Patient doing well overall. She is following endocrine for a benign adrenal mass and will see them in 1 yr for repeat imaging. Past medical history, appointments, medications, allergies reviewed. 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 Cataract Coitus painful for female Have already addressed Colon polyp 2011 Controlled type 2 diabetes [...] Female pattern hair loss Foot callus 05/26/2021 Gastroesophageal reflux disease without esophagitis 10/18/2024 History of colon polyps History of depression when History of hyperparathyroidism History of transient ischemic attack (TIA) 10/29/2017 06/29/2017 - R homonomous hemianopia with aphasia for couple hours - negative MRI/A following day Irritable bowel syndrome with diarrhea 05/26/2021 Living will on file at physician's office 04/08/2023 DPA: Carmella () Meniere disease, right 10/29/2017 Mixed hyperlipidemia 05/31/2009 statin intolerance Narcolepsy without cataplexy ([facility]) 01/16/2016 Especially with long drives. Has been on provigil for 5-10 yrs Obstructive sleep apnea on CPAP Sibilia Other skin changes 09/26/2021 Seeing derm Pancreatic insufficiency ([facility]) 04/08/[address] Alcantar Psoriasis RLS (restless legs syndrome) 02/22/[address] Aysha Laurent with ocular symptoms S/P angioplasty with stent 01/09/2017 stents to mid and proximal left anterior descending Art, and angio of ostium of #2 diagonal Scalp itch Seasonal allergies Dr Pompa Type 2 diabetes mellitus with hyperlipidemia ([facility]) 04/17/2024 Uterine fibroid 1994? Hysterectomy at age 41 Uterine polyp No longer an issue Vitamin D deficiency 2012 Well adult exam 01/16/2016 Last done: 09/08/2018 Previous Surgical History PAST SURGICAL HISTORY Procedure Laterality Date 2D ECHO (EXEP) 06/30/2017 EF=65%, trivial CT, TI and 1+ PI Unchanged from 04/2017 2D ECHO (EXEP) 05/14/2021 EF=60%, 1+ TI, trival CT, AI, PI 2D ECHO (EXEP) 09/16/2021 EF=60%, [...] cancer) Mother Coronary Artery Disease Father [address] @ 25. CABG Diabetes Father Diabetes Paternal Grandmother Diabetes Maternal Grandfather other (Lung cancer) Brother other (suicide) Son may of been depression Patient Allergies ALLERGIES Allergen Reactions Brilinta [Ticagrelo* Shortness of Breath Crestor [Rosuvastat* Myalgia Keflex [Cephalexin] Other: See Comments facial flushing Lipitor [Atorvastat* Other: See Comments myalgia Lovastatin Other: See Comments myalgia Hughes [Hydrocodone-* Itching Current Medications Current Outpatient Medications on File Prior to Visit Medication Sig estradiol (ESTRACE) 0.01 % (0.1 mg/gram) vaginal cream Use 1 g vaginally as directed. insert 1 gm vaginally twice weekly metoprolol tartrate, short acting, (LOPRESSOR) 25 mg tablet Take 25 mg by mouth two times a day. amLODIPine (NORVASC) 5 mg tablet Take 1 tablet by mouth once daily. (Patient taking differently: Take 1 tablet by mouth once daily. Patient taking 2.5mg in the morning and 2.5mg after dinner at night.) dicyclomine (BENTYL) 20 mg tablet Take 20 mg by mouth four times a day as needed (IBS symptoms). tamoxifen (NOLVADEX) 20 mg tablet TAKE 1 TABLET ONE TIME DAILY omeprazole (PRILOSEC) 40 mg capsule Take 1 capsule by mouth once daily. ezetimibe (ZETIA) 10 mg tablet Take 1 tablet by mouth once daily. pioglitazone (ACTOS) 15 mg tablet Take 1 tablet by mouth once daily. OTC NUTRITIONAL SUPPLEMENT vitamin coenzyme Q10 (COENZYME Q-10) 100 mg cap capsule Take 100 mg by mouth once daily. shclhw-elqkbgih-pndwdcb (CREON 36) 36,000-114,000- 180,000 unit delayed release capsule Take 2-3 capsules by mouth with meals and at bedtime. lisinopril (ZESTRIL) 40 mg tablet Take 40 mg by mouth once daily. Calcium Citrate-Vitamin D3 (CITRACAL+D) 315 mg-6.25 mcg (250 unit) tab Take 2 tablets by mouth once daily. metFORMIN (GLUCOPHAGE) 500 mg tablet Take 2 tablets by mouth twice daily with meals. ammonium lactate (LAC-HYDRIN) 12 % lotion Apply 1 application to affected area twice daily as needed. Clobetasol Propionate 0.05 % gel Apply 1 application to affected area as needed. acetaminophen (TYLENOL) 500 mg tablet Take 1,000 mg by mouth every 8 hours as needed. nitroglycerin sublingual (NITROQUICK) 0.4 mg SL tablet Dissolve 1 tablet under the tongue every 5 minutes as needed for Chest Pain. ketoconazole (NIZORAL) 2 % shampoo Apply 1 application to affected area once daily as needed. montelukast (SINGULAIR) 10 mg tablet Take 10 mg by mouth daily at bedtime. LACTOBACILLUS ACIDOPHILUS (PROBIOTIC ORAL) Take 1 tablet by mouth once daily. CPAP (Patient taking differently: No sig reported) No current facility-administered medications on file prior to visit. Social History Social History Tobacco Use Smoking status: Former Current packs/day: 0.00 Average packs/day: 1.5 packs/day for 3.0 years (4.5 ttl pk-yrs) Types: Cigarettes Start date: 11/08/1991 Quit date: 11/08/1994 Years since quittin.4 Smokeless tobacco: Never Tobacco comments: smoked 3 years in mid 90s Vaping Use Vaping status: Never Used Substance Use Topics Alcohol use: No Drug use: No Review of Symptoms REVIEW OF SYSTEMS GENERAL: No weight loss, malaise or fevers HEENT: Negative for frequent or significant headaches, No changes in hearing or vision or other nasal problems NECK: Negative for lumps, goiter, pain and significant neck swelling RESPIRATORY: Negative for cough, dyspnea or shortness of breath CARDIOVASCULAR: Negative for chest pain, leg swelling or palpitations GI: No nausea, vomiting, or diarrhea MUSCULOSKELETAL: Negative for joint pain or swelling, back pain or muscle pain HEMATOLOGY/LYMPHOLOGY: Negative for prolonged bleeding, bruising easily or swollen nodes ENDOCRINE: Negative for heat intolerance +consistently cold hands and feet , polyuria, polydipsia NEURO: No history of headaches, syncope, paralysis, seizures or tremors SEE HPI EXAM: BP 136/72 (BP Site: Left Arm, BP Position: Sitting, BP Cuff Size: Regular Adult) Pulse (!) 58 Temp 36.2 C (97.2 F) Resp 16 Ht 159 cm (5' 2.6) Wt 64.9 kg (143 lb) SpO2 98% BMI 25.66 kg/m General Appearance: Well appearing, alert, in no acute distress, well-hydrated, well nourished.. Head: Normocephalic, no masses, lesions, tenderness or [...] non-tender. Bowel sounds normal. No masses, organomegaly. Peripheral Pulses: Normal. Feet:Shoes and socks removed, sensitive to 10 gm monofilament, and vibratory perception normal +slightly cooler feet with good capillary refill and intact pulses bilaterally Health Maintenance List Advance Directive Discussion due on 11/08/2024 Medicare Advantage Annual Wellness Visit due on 11/08/2024 Diabetic Foot Exam due on 04/17/2025 Depression Screening due on 04/17/2025 Anxiety Screening due on 04/17/2025 Covid-19 Vaccine() due on 10/18/2025 Influenza Vaccine(Season Ended) due on 07/09/2025 Dilated Retinal Exam due on 09/29/2025 HbA1C due on 10/07/2025 Annual PCP Team Chronic Disease Visit due on 12/29/2025 Mammogram Screening due on 03/14/2026 Urine Albumin:Creatinine Ratio due on 04/06/2026 LDL Cholesterol due on 04/06/2026 DTaP,Tdap,Td Vaccine(3 - Td or Tdap) due on 04/22/2034 Colorectal Cancer Screening due on 06/19/2034 Bone Density Screening Completed RSV Vaccine Completed Hepatitis C Screening Completed Shingrix Vaccine Completed Pneumococcal Vaccine: 50+ Completed Cervical Cancer Screening Discontinued Data reviewed Latest Ref Rng 04/06/2025 WBC 3.70 - 11.00 k/uL 8.58 RBC 3.90 - 5.20 m/uL 4.08 Hemoglobin 11.5 - 15.5 g/dL 12.4 Hematocrit 36.0 - 46.0 % 37.9 MCV 80.0 - 100.0 fL 92.9 MCH 26.0 - 34.0 pg 30.4 MCHC 30.5 - 36.0 g/dL 32.7 RDW-CV 11.5 - 15.0 % 13.8 Platelet Count 150 - 400 k/uL 178 MPV 9.0 - 12.7 fL 9.6 Neut% % 63.2 Abs Neut (ANC) 1.45 - 7.50 k/uL 5.41 Lymph% % 26.3 Abs Lymph 1.00 - 4.00 k/uL 2.26 [place]% % 8.5 Abs [place] <0.87 k/uL 0.73 Eosin% % 1.4 Abs Eosin <0.46 k/uL 0.12 Baso% % 0.3 Abs Baso <0.11 k/uL 0.03 Immature Gran % % 0.3 IMMATURE GRANS (ABS) <0.10 k/uL 0.03 NRBC /100 WBC 0.0 Absolute nRBC <0.01 k/uL <0.01 DTYPE Auto Color Yellow Yellow Clarity Clear Clear Glucose, Urine Negative Negative Bilirubin, Urine Negative Negative Ketones, Urine Negative Negative Specific [place], Ur 1.005 - 1.030 1.014 Hemoglobin/Blood,Ur Negative Negative pH, Urine <8.5 7.0 Protein, Urine Negative Negative Urobilinogen 0.2-1.0 EU/dL 0.2 EU/dL Nitrites Negative Negative Leukest Negative 3+ ! WBC, Urine 0-5 /HPF 11-20 /HPF ! RBC, Urine 0-2 /HPF 0-2 /HPF Bacteria uL Negative uL 1,513.2 (H) Epithelial Cells /HPF Moderate Hyaline Cast 0 /LPF 0 /LPF Protein, Total 6.3 - 8.0 g/dL 6.6 Albumin 3.9 - 4.9 g/dL 3.7 (L) Calcium 8.5 - 10.2 mg/dL 9.0 Bilirubin, Total 0.2 - 1.3 mg/dL 0.3 Alkaline Phosphatase 34 - 123 U/L 49 AST 13 - 35 U/L 17 ALT 7 - 38 U/L 11 Glucose 74 - 99 mg/dL 115 (H) BUN 7 - 21 mg/dL 15 Creatinine 0.58 - 0.96 mg/dL 0.79 Sodium 136 - 144 mmol/L 141 Potassium 3.7 - 5.1 mmol/L 4.0 Chloride 98 - 107 mmol/L 104 CO2 22 - 30 mmol/L 26 Anion Gap 8 - 15 mmol/L 11 eGFR >=60 mL/min/1.73m 82 Total Cholesterol, Nonfasting <200 mg/dL 152 Triglycerides, Nonfasting <150 mg/dL 106 HDL Cholesterol, Nonfasting >39 mg/dL 38 (L) LDL Cholesterol Calculated, Nonfasting <100 mg/dL 94 Non HDL Cholesterol, Nonfasting <130 mg/dL 114 VLDL Cholesterol, Nonfasting <30 mg/dL 17 Total Chol/HDL Ratio, Nonfasting <5.10 mg/dL 4.00 LDL/HDL Ratio, Nonfasting <2.54 mg/dL 2.47 Creatinine, Ur Random (UCRR) 20.0 - 300.0 mg/dL 81.5 Albumin, Urine Random mg/L <12.0 Albumin/Creat Ratio <30 mg/g <15 Hemoglobin A1C 4.3 - 5.6 % 7.2 (H) Estimated Average Glucose mg/dL 160 Vitamin B12 232 - 1,245 pg/mL 609 Magnesium 1.7 - 2.3 mg/dL 1.6 (L) Vitamin D 25 Hydroxy 31.0 - 80.0 ng/mL 29.6 (L) TSH 0.270 - 4.200 mIU/L 3.870 Legend: ! Abnormal (H) High (L) Low Assessment and Plan ASSESSMENT/PLAN: 1. Encounter for Medicare annual wellness exam - ICD9: V70.0, ICD10: Z00.00 (primary diagnosis) - Counseled on healthy diet and regular exercise 2. Advance directive discussed with patient - ICD9: V65.49, ICD10: Z71.89 We have this on file 3. Controlled type 2 diabetes mellitus without complication, without long-term current use of insulin (HCC) - ICD9: 250.00, ICD10: E11.9 We discussed watching the diet and increasing exercise to help improve A1c - HEMOGLOBIN A1C - BASIC METABOLIC PANEL 4. Type 2 diabetes mellitus with hyperlipidemia (HCC) - ICD9: 250.80, 272.4, ICD10: E11.69, E78.5 As in #3 - Counseled on healthy diet and regular exercise - HEMOGLOBIN A1C 5. Essential hypertension - ICD9: 401.9, ICD10: I10 - Controlled - BASIC METABOLIC PANEL 6. Mixed hyperlipidemia - ICD9: 272.2, ICD10: E78.2 Will recheck levels - LIPID PANEL, NONFASTING 7. Statin intolerance - ICD9: 995.27, ICD10: Z78.9 Patient intolerant to statins 8. 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 RLS (restless legs syndrome) - ICD9: 333.94, ICD10: G25.81 No new concerns 11. 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 Pancreatic insufficiency (HCC) - ICD9: 577.8, ICD10: K86.89 No new concerns, taking creon and is well managed 13. Vitamin D deficiency - ICD9: 268.9, ICD10: E55.9 - VITAMIN D 25 HYDROXY 14. Hypomagnesemia - ICD9: 275.2, ICD10: E83.42 Slightly low Mg of 1.6, will recheck level. Encouraged patient to take her Mg supplement consistently to help with this. - MAGNESIUM 15. History of hyperparathyroidism - ICD9: V12.29, ICD10: Z86.39 No new concerns 16. Living will on file at physician's office - ICD9: V49.89, ICD10: Z78.9 We have this on file 17. Encounter for screening examination for other mental health and behavioral disorders - ICD9: V79.8, ICD10: Z13.39 No new concerns - ANXIETY SCREENING 18. Screening for depression - ICD9: V79.0, ICD10: Z13.31 No new concerns - DEPRESSION SCREENING Patient to follow up in 6 months or sooner with any new concerns. Mellisa MARINA I have personally seen and examined the patient and performed the medical-decision making components. I have reviewed the Physician Head Counselor (PA) student's documentation and verified the findings in the note as written. Any additions or changes are noted in bold/italics. Cherise Sifuentes PA-C I spent a total of 40 minutes on the date of the service which included preparing to see the patient, [id number] patient care, completing clinical documentation, obtaining and/or reviewing separately obtained history, performing a medically appropriate examination, counseling and educating the patient/family/caregiver, ordering medications, tests, or procedures, communicating with other HCPs (not separately reported), and communicating results to the patient/family/caregiver. documented in this encounter [facility] 04-12-2025 Note HNO ID: [id number] Author: ?, ?, ? Service: ? Author Type: ? Type: Progress Notes Filed: 04/12/2025 09:48 Note Text: POPULATION HEALTH NAVIGATION OUTREACH Action/FYI Patient outreach for Hcc gaps; BEN due 09/2025. Patient uses OSH for eye exams. Mychart sent to close gaps. Reason for Outreach Care Gap/HCC or Scheduling Wellness Visits Care Gaps due: Diabetic Eye Exam Patient Contacted: Unable or unnecessary to reach patient: MyChart message sent HCC related Navigation Signature: Caro Cassidy April 12, 2025 9:35 AM [facility] 04-12-2025 History of Present illness Narrative POPULATION HEALTH NAVIGATION OUTREACH Action/FYI Patient outreach for Hcc gaps; BEN due 09/2025. Patient uses OSH for eye exams. Mychart sent to close gaps. Reason for Outreach Care Gap/HCC or Scheduling Wellness Visits Care Gaps due: Diabetic Eye Exam Patient Contacted: Unable or unnecessary to reach patient: MyChart message sent HCC related Navigation Signature: Caro Cassidy April 12, 2025 9:35 AM documented in this encounter [facility] 04-12-2025 Note Patient Outreach (NE [facility]NA[facility]) ---- DOM AVILA ([id number]) 1955 F Date Time Provider Department 04/12/25 CLIFTON HUNG During your visit today, we recorded the following information about you: Caro Cuenca 04/12/2025 9:48 AM Signed POPULATION HEALTH NAVIGATION OUTREACH Action/FYI Patient outreach for Hcc gaps; BEN due 09/2025. Patient uses OSH for eye exams. Mychart sent to close gaps. Reason for Outreach Care Gap/HCC or Scheduling Wellness Visits Care Gaps due: Diabetic Eye Exam Patient Contacted: Unable or unnecessary to reach patient: MyChart message sent HCC related Navigation Signature: Caro Cassidy April 12, 2025 9:35 AM Allergies As of Date: 04/12/2025 Noted Allergy Reaction BRILINTA (TICAGRELOR) 06/28/2017 12 - Shortness of Breath CRESTOR (ROSUVASTATIN) 04/10/2020 17 - Myalgia KEFLEX (CEPHALEXIN) 02/02/2006 14 - Other: See Comments Comments: facial flushing LIPITOR (ATORVASTATIN) 07/21/2013 14 - Other: See Comments Comments: myalgia LOVASTATIN 07/21/2013 14 - Other: See Comments Comments: myalgia NORCO (HYDROCODONE-ACETAMINOPHEN) 10/29/2016 9 - Itching Date Reviewed: 04/09/2025 Reviewed by: Sima Dumont APRN.REPAIRER RESISTANCE WELDING MACHINES - Fully Assessed Reason for Visit: Population Health Navigation Outreach [3910] Cmt: Polo Moya Prescriptions as of 04/12/2025 - estradiol (ESTRACE) 0.01 % (0.1 mg/gram) vaginal cream Use 1 g vaginally as directed. insert 1 gm vaginally twice weekly - metoprolol tartrate, short acting, (LOPRESSOR) 25 mg tablet Take 25 mg by mouth two times a day. - amLODIPine (NORVASC) 5 mg tablet Take 1 tablet by mouth once daily. - dicyclomine (BENTYL) 20 mg tablet Take 20 mg by mouth four times a day as needed (IBS symptoms). - tamoxifen (NOLVADEX) 20 mg tablet TAKE 1 TABLET ONE TIME DAILY - omeprazole (PRILOSEC) 40 mg capsule Take 1 capsule by mouth once daily. - ezetimibe (ZETIA) 10 mg tablet Take 1 tablet by mouth once daily. - pioglitazone (ACTOS) 15 mg tablet Take 1 tablet by mouth once daily. - OTC NUTRITIONAL SUPPLEMENT vitamin - coenzyme Q10 (COENZYME Q-10) 100 mg cap capsule Take 100 mg by mouth once daily. - gfzree-auibgnth-udgtldh (CREON 36) 36,000-114,000- 180,000 unit delayed release capsule Take 2-3 capsules by mouth with meals and at bedtime. - lisinopril (ZESTRIL) 40 mg tablet Take 40 mg by mouth once daily. - Calcium Citrate-Vitamin D3 (CITRACAL+D) 315 mg-6.25 mcg (250 unit) tab Take 2 tablets by mouth once daily. - metFORMIN (GLUCOPHAGE) 500 mg tablet Take 2 tablets by mouth twice daily with meals. - ammonium lactate (LAC-HYDRIN) 12 % lotion Apply 1 application to affected area twice daily as needed. - Clobetasol Propionate 0.05 % gel Apply 1 application to affected area as needed. - acetaminophen (TYLENOL) 500 mg tablet Take 1,000 mg by mouth every 8 hours as needed. - nitroglycerin sublingual (NITROQUICK) 0.4 mg SL tablet Dissolve 1 tablet under the tongue every 5 minutes as needed for Chest Pain. - ketoconazole (NIZORAL) 2 % shampoo Apply 1 application to affected area once daily as needed. - montelukast (SINGULAIR) 10 mg tablet Take 10 mg by mouth daily at bedtime. - LACTOBACILLUS ACIDOPHILUS (PROBIOTIC ORAL) Take 1 tablet by mouth once daily. - CPAP Problem List As Of Date 04/12/2025 Noted Resolved Mixed hyperlipidemia [E78.2] 05/31/2009 Obstructive sleep apnea on CPAP [G47.33] Scalp itch [L29.9] Seasonal allergies [J30.2] History of depression [Z86.59] Arthritis [M19.90] Rosacea [L71.9] History of hyperparathyroidism [Z86.39] Female pattern hair loss [L65.8] History of colon polyps [Z86.0100] Vitamin D deficiency [E55.9] Essential hypertension [I10] 01/16/2016 Encounter for gynecological examination without*01/16/2016 Narcolepsy without cataplexy [G47.419] 01/16/2016 Diabetic eye exam (HCC) [Z01.00, E11.9] 01/16/2016 Colon cancer screening [Z12.11] 01/16/2016 Controlled type 2 diabetes mellitus without com*10/22/2016 Atherosclerosis of curyung coronary artery with *01/09/2017 S/P angioplasty with stent [Z95.820] 01/09/2017 Meniere disease, right [H81.01] 10/29/2017 History of transient ischemic attack (TIA) [Z86*10/29/2017 Garibay's cyst of knee, left [M71.22] 03/02/2018 Psoriasis [L40.9] Ductal carcinoma in situ (DCIS) of left breast *05/26/2021 Irritable bowel syndrome with diarrhea [K58.0] 05/26/2021 Foot callus [L84] 05/26/2021 Other skin changes [R23.8] 09/26/2021 RLS (restless legs syndrome) [G25.81] 02/22/2023 Encounter for Medicare annual wellness exam [Z0*04/08/2023 Pancreatic insufficiency [K86.89] 04/08/2023 Living will on file at physician's office [Z78.*04/08/2023 Advance directive discussed with patient [Z71.8*04/08/2023 Type 2 diabetes mellitus with hyperlipidemia (H*04/17/2024 Medication management [Z79.899] (more content not included)... [facility] 04-09-2025 Instructions Sima Dumont APRN.ELIZABETH - 04/09/2025 9:40 AM EDT BONE MINERAL DENSITY PATIENT INSTRUCTIONS === Bone mineral density testing measures the amount of calcium in certain parts of your bones. This information determines how strong your bones are. The test is used to detect osteoporosis, a disease in which the bone's mineral content and density are low, increasing a person's risk of fractures. The lumbar spine (lower back) and the hip are the skeletal sites usually examined. For the test, remember that: 1. You cannot take this test if you are . 2. Eat a normal diet on the day of the test. 3. Take your medications as you normally would. 4. DO NOT take calcium supplements (such as Tums) for 24 hours before the test. 5. On the day of the test, leave valuables (jewelry or credit cards) at home. 6. The test should be performed prior to oral, rectal or IV contrast studies, or at least 7 days after any of these studies. For the test, you may be asked to wear a hospital gown. You will lie on your back, on a padded table, in a comfortable position. Generally, you can resume your usual activities immediately. documented in this encounter [facility] 04-09-2025 Note HNO ID: [id number] Author: SIMA DUMONT APRN.REPAIRER RESISTANCE WELDING MACHINES Service: ? Author Type: Nurse Practitioner Type: Progress Notes Filed: 04/09/2025 09:59 Note Text: Advertising Sales Executive offered: Patient declines. Dom is a 69 year old who presents for an annual gynecologic exam without complaints. Nodule on adrenal gland - seeing block sorter. Postmenopausal: Hysterectomy at age 41 benign fibroid, ovary sparing HRT use: None. 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 Estrogen progesterone receptors positive ( >95%); HER-2/brandin negative (0) Tamoxifen x 4 years - planned for 5 years OB History Gravida4 Para3 Term0 Preterm0 AB0 Living2 SAB0 IAB0 Ectopic0 Multiple0 Live Births3 Tobacco Stemmer History LMP: Hysterectomy Age at Menarche: 13 Age at First : Age at Menopause: Tobacco Stemmer History Comments: Sexual Activity: Yes; Male Contraception: None PAST MEDICAL HISTORY Diagnosis Date Advance directive discussed with patient 04/08/2023 Discussed 03/2023: Up to date Amaurosis fugax 10/29/2017 TIA; right visual disturbance 06/2017 Arthritis tendonitis, arthritis 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 Cataract Coitus painful for female Have already addressed Colon polyp 2011 Controlled type 2 diabetes [...] Female pattern hair loss Foot callus 05/26/2021 Gastroesophageal reflux disease without esophagitis 10/18/2024 History of colon polyps History of depression when History of hyperparathyroidism History of transient ischemic attack (TIA) 10/29/2017 06/29/2017 - R homonomous hemianopia with aphasia for couple hours - negative MRI/A following day Irritable bowel syndrome with diarrhea 05/26/2021 Living will on file at physician's office 04/08/2023 DPA: Carmella () Meniere disease, right 10/29/2017 Mixed hyperlipidemia 05/31/2009 statin intolerance 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 Has been on provigil for 5-10 yrs Obstructive sleep apnea on CPAP Sibilia Other skin changes 09/26/2021 Seeing derm Pancreatic insufficiency (HCC) 04/08/[address] Alcantar Psoriasis RLS (restless legs syndrome) 02/22/[address] Aysha Laurent with ocular symptoms S/P angioplasty with stent 01/09/2017 stents to mid and proximal left anterior descending Art, and angio of ostium of #2 diagonal Scalp itch Seasonal allergies Dr Pompa Type 2 diabetes mellitus with hyperlipidemia ([facility]) 04/17/2024 Uterine fibroid 1994? Hysterectomy at age 41 Uterine polyp No longer an issue Vitamin D deficiency 2012 Well adult exam 01/16/2016 Last done: 09/08/2018 PAST SURGICAL HISTORY Procedure Laterality Date 2D ECHO (EXEP) 06/30/2017 EF=65%, trivial CT, TI and 1+ PI Unchanged from 04/2017 2D ECHO (EXEP) 05/14/2021 EF=60%, 1+ TI, trival CT, AI, PI 2D ECHO (EXEP) 09/16/2021 EF=60%, [...] OF 2014 bilateral carpel tunnel PAST SURGICAL (more content not included)... [facility] 04-09-2025 History of Present illness Narrative Advertising Sales Executive offered: Patient declines. Raza is a 69 year old who presents for an annual gynecologic exam without complaints. Nodule on adrenal gland - seeing block sorter. Postmenopausal: Hysterectomy at age 41 benign fibroid, ovary sparing HRT use: None. 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 Estrogen progesterone receptors positive ( >95%); HER-2/brandin negative (0) Tamoxifen x 4 years - planned for 5 years OB History Gravida4 Para3 Term0 Preterm0 AB0 Living2 SAB0 IAB0 Ectopic0 Multiple0 Live Births3 Tobacco Stemmer History LMP: Hysterectomy Age at Menarche: 13 Age at First : Age at Menopause: Tobacco Stemmer History Comments: Sexual Activity: Yes; Male Contraception: None PAST MEDICAL HISTORY Diagnosis Date Advance directive discussed with patient 04/08/2023 Discussed 03/2023: Up to date Amaurosis fugax 10/29/2017 TIA; right visual disturbance 06/2017 Arthritis tendonitis, arthritis 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 Encounter for Medicare annual wellness exam 04/08/2023 Medicare Part B: 07/09/2022 Last done: 04/08/2023 Essential hypertension 01/16/2016 Female pattern hair loss Foot callus 05/26/2021 Gastroesophageal reflux disease without esophagitis 10/18/2024 History of colon polyps History of depression when History of hyperparathyroidism History of transient ischemic attack (TIA) 10/29/2017 06/29/2017 - R homonomous hemianopia with aphasia for couple hours - negative MRI/A following day Irritable bowel syndrome with diarrhea 05/26/2021 Living will on file at physician's office 04/08/2023 DPA: Carmella () Meniere disease, right 10/29/2017 Mixed hyperlipidemia 05/31/2009 statin intolerance Narcolepsy without cataplexy ([facility]) 01/16/2016 Especially with long drives. Has been on provigil for 5-10 yrs Obstructive sleep apnea on CPAP Sibilia Other skin changes 09/26/2021 Seeing derm Pancreatic insufficiency ([facility]) 04/08/[address] Ortiz [place] RLS (restless legs syndrome) 02/22/[address] Aysha Laurent with ocular symptoms S/P angioplasty with stent 01/09/2017 stents to mid and proximal left anterior descending Art, and angio of ostium of #2 diagonal Scalp itch Seasonal allergies Dr Pompa Type 2 diabetes mellitus with hyperlipidemia ([facility]) 04/17/2024 Uterine fibroid 1994? Hysterectomy at age 41 Uterine polyp No longer an issue Vitamin D deficiency 2013 Well adult exam 01/16/2016 Last done: 09/08/2018 PAST SURGICAL HISTORY Procedure Laterality Date 2D ECHO (EXEP) 06/30/2017 EF=65%, trivial CT, TI and 1+ PI Unchanged from 04/2017 2D ECHO (EXEP) 05/14/2021 EF=60%, 1+ TI, trival CT, AI, PI 2D ECHO (EXEP) 09/16/2021 EF=60%, [...] cancer) Mother Coronary Artery Disease Father 25 CT @ 25. CABG Diabetes Father Diabetes Paternal Grandmother Diabetes Maternal Grandfather other (Lung cancer) Brother other (suicide) Son may of been depression SOCIAL HISTORY Social History Tobacco Use Smoking status: Former Current packs/day: 0.00 Average packs/day: 1.5 packs/day for 3.0 years (4.5 ttl pk-yrs) Types: Cigarettes Start date: 11/08/1991 Quit date: 11/08/1994 Years since quittin.4 Smokeless tobacco: Never Tobacco comments: smoked 3 years in mid 90s Vaping Use Vaping status: Never Used Substance Use Topics Alcohol use: No Drug use: No REVIEW OF SYSTEMS Abdomen: No abdominal pain, nausea, vomiting, diarrhea, or constipation. No bloating, early satiety, indigestion, or increased flatulence. Bladder: No dysuria, gross hematuria, urinary frequency, Both urge and stress incontinence - a little better with estrogen cream and since eliminating coffee. Sees urologist. Recent mammogram last month and oncology appointment. Breast: No breast lumps, nipple d/c, overlying skin changes, redness or skin retraction Allergies and current medication updated:Yes SENSITIVE EXAM: The sensitive examination was discussed with the Patient or Patient's Authorized Associate Justice. As applicable, any other physician, advance practice provider, medical student, or other health professional student that will be observing or involved in the sensitive examination for educational or training purposes was discussed with the Patient or Authorized Associate Justice. The Patient or Authorized Associate Justice has agreed to proceed with the sensitive examination. (Sensitive examination includes inspection and/or palpation of the breasts, pelvis, prostate and anorectal regions). EXAM: BP 156/90 Ht 5' 2.598 (1.59m) Wt 143 lb (64.9kg) BMI 25.66 kg/(m^2). GENERAL: pleasant, female in no apparent distress HEENT: Normocephalic, atraumatic, mucus membranes moist, and no lesions NECK: Supple, full range of motion, no adenopathy, and thyroid normal DERMATOLOGY: Normal, without lesions, non-icteric, and non-hirsute BREAST: declined CHEST: Normal inspiratory effort ABDOMEN: soft, non-tender, and no masses PELVIC: external genitalia normal, normal Bartholin's glands, urethra, [place]'s glands, no vulvar lesions, good vaginal support, physiologic discharge present, normal appearing perineal body and perianal region, cervix surgically absent. + vaginal atrophy BIMANUAL: no adnexal masses, non-tender, and uterus surgically absent RECTOVAGINAL: deferred. NEURO: alert and oriented x3,exam grossly non-focal EXTREMITIES: normal ASSESSMENT/PLAN: 1) Health maintenance: Pap/HPV screening no longer needed Mammogram up to date and ordered by oncology. Had recent follow-up and declined breast exam. Nutrition, exercise and routine health maintenance exams reviewed. Colon cancer screening: up to date with screening BMD: ordered. Last was in 2020 PROBLEMS: 2. Genitourinary syndrome of menopause - ICD9: 627.8, ICD10: N95.8 - No UTIs in the past year - Estrace cream and Revaree - using each 1-2 times a week - ESTRADIOL 0.01% (0.1 MG/GRAM) VAGINAL CREAM 3. KLAUS (stress urinary incontinence, female) - ICD9: 625.6, ICD10: N39.3 - Slight improvement with estrogen cream and since eliminating coffee. Sees urologist. 4) Follow up one year or sooner as needed Sima Dumont APRN.CNP Medical Decision Making: Problems: Moderate: 2+ stable chronic illnesses Risk: Moderate: Drug management and Moderate risk from testing/treatment Medical Decision Making Level: 4 - Moderate documented in this encounter [facility] 04-04-2025 Note HNO ID: [id number] Author: ROCCO RENDON RN Service: ? Author Type: Registered Nurse Type: Progress Notes Filed: 04/04/2025 13:28 Note Text: Value Based Care Coordination Chart Review Provider Action / FYI: Unable to reach for CDM 04/19/25 PCP Upon review of patient chart, the patient is excluded from Chronic Disease Management Patient is not a candidate for CDM at this time and placed in the following status: Unable to reach Action taken: No action needed . Rocco Rendon RN April 04, 2025 1:25 PM [facility] 04-04-2025 History of Present illness Narrative Value Based Care Coordination Chart Review Provider Action / FYI: Unable to reach for CDM 04/19/25 PCP Upon review of patient chart, the patient is excluded from Chronic Disease Management Patient is not a candidate for CDM at this time and placed in the following status: Unable to reach Action taken: No action needed . Rocco Rendon RN April 04, 2025 1:25 PM documented in this encounter [facility] 04-04-2025 Note Patient Outreach ([facility] ---- [place] ([id number]) 1955 F Date Time Provider Department 04/04/25 ROCCO RENDON [facility] During your visit today, we recorded the following information about you: Rocco Rendon RN 04/04/2025 1:28 PM Signed Value Based Care Coordination Chart Review Provider Action / FYI: Unable to reach for CDM NOV 04/19/25 PCP Upon review of patient chart, the patient is excluded from Chronic Disease Management Patient is not a candidate for CDM at this time and placed in the following status: Unable to reach Action taken: No action needed . Rocco Rendon RN April 04, 2025 1:25 PM Allergies As of Date: 04/04/2025 Noted Allergy Reaction BRILINTA (TICAGRELOR) 06/28/2017 12 - Shortness of Breath CRESTOR (ROSUVASTATIN) 04/10/2020 17 - Myalgia KEFLEX (CEPHALEXIN) 02/02/2006 14 - Other: See Comments Comments: facial flushing LIPITOR (ATORVASTATIN) 07/21/2013 14 - Other: See Comments Comments: myalgia LOVASTATIN 07/21/2013 14 - Other: See Comments Comments: myalgia NORCO (HYDROCODONE-ACETAMINOPHEN) 10/29/2016 9 - Itching Date Reviewed: 03/21/2025 Reviewed by: Chad Mariee APRN.REPAIRER RESISTANCE WELDING MACHINES - Fully Assessed Reason for Visit: Pharyngitis [82] Prescriptions as of 04/04/2025 - metoprolol tartrate, short acting, (LOPRESSOR) 25 mg tablet Take 25 mg by mouth two times a day. - amLODIPine (NORVASC) 5 mg tablet Take 1 tablet by mouth once daily. - dicyclomine (BENTYL) 20 mg tablet Take 20 mg by mouth four times a day as needed (IBS symptoms). - tamoxifen (NOLVADEX) 20 mg tablet TAKE 1 TABLET ONE TIME DAILY - omeprazole (PRILOSEC) 40 mg capsule Take 1 capsule by mouth once daily. - ezetimibe (ZETIA) 10 mg tablet Take 1 tablet by mouth once daily. - pioglitazone (ACTOS) 15 mg tablet Take 1 tablet by mouth once daily. - OTC NUTRITIONAL SUPPLEMENT vitamin - coenzyme Q10 (COENZYME Q-10) 100 mg cap capsule Take 100 mg by mouth once daily. - datlzj-xkgbrzaa-alqszii (CREON 36) 36,000-114,000- 180,000 unit delayed release capsule Take 2-3 capsules by mouth with meals and at bedtime. - lisinopril (ZESTRIL) 40 mg tablet Take 40 mg by mouth once daily. - estradiol (ESTRACE) 0.01 % (0.1 mg/gram) vaginal cream Use 1 g vaginally as directed. Insert 1 gm vaginally every night x 14 nights then insert 1 gm vaginally twice weekly - Calcium Citrate-Vitamin D3 (CITRACAL+D) 315 mg-6.25 mcg (250 unit) tab Take 2 tablets by mouth once daily. - metFORMIN (GLUCOPHAGE) 500 mg tablet Take 2 tablets by mouth twice daily with meals. - ammonium lactate (LAC-HYDRIN) 12 % lotion Apply 1 application to affected area twice daily as needed. - Clobetasol Propionate 0.05 % gel Apply 1 application to affected area as needed. - acetaminophen (TYLENOL) 500 mg tablet Take 1,000 mg by mouth every 8 hours as needed. - nitroglycerin sublingual (NITROQUICK) 0.4 mg SL tablet Dissolve 1 tablet under the tongue every 5 minutes as needed for Chest Pain. - ketoconazole (NIZORAL) 2 % shampoo Apply 1 application to affected area once daily as needed. - montelukast (SINGULAIR) 10 mg tablet Take 10 mg by mouth daily at bedtime. - LACTOBACILLUS ACIDOPHILUS (PROBIOTIC ORAL) Take 1 tablet by mouth once daily. - CPAP Problem List As Of Date 04/04/2025 Noted Resolved Mixed hyperlipidemia [E78.2] 05/31/2009 Obstructive sleep apnea on CPAP [G47.33] Scalp itch [L29.9] Seasonal allergies [J30.2] History of depression [Z86.59] Arthritis [M19.90] Rosacea [L71.9] History of hyperparathyroidism [Z86.39] Female pattern hair loss [L65.8] History of colon polyps [Z86.0100] Vitamin D deficiency [E55.9] Essential hypertension [I10] 01/16/2016 Encounter for gynecological examination without*01/16/2016 Narcolepsy without cataplexy [G47.419] 01/16/2016 Diabetic eye exam (HCC) [Z01.00, E11.9] 01/16/2016 Colon cancer screening [Z12.11] 01/16/2016 Controlled type 2 diabetes mellitus without com*10/22/2016 Atherosclerosis of curyung coronary artery with *01/09/2017 S/P angioplasty with stent [Z95.820] 01/09/2017 Meniere disease, right [H81.01] 10/29/2017 History of transient ischemic attack (TIA) [Z86*10/29/2017 Garibay's cyst of knee, left [M71.22] 03/02/2018 Psoriasis [L40.9] Ductal carcinoma in situ (DCIS) of left breast *05/26/2021 Irritable bowel syndrome with diarrhea [K58.0] 05/26/2021 Foot callus [L84] 05/26/2021 Other skin changes [R23.8] 09/26/2021 RLS (restless legs syndrome) [G25.81] 02/22/2023 Encounter for Medicare annual wellness exam [Z0*04/08/2023 Pancreatic insufficiency [K86.89] 04/08/2023 Living will on file at physician's office [Z78.*04/08/2023 Advance directive discussed with patient [Z71.8*04/08/2023 Type 2 diabetes mellitus with hyperlipidemia (H*04/17/2024 Medication management [Z79.899] 10/18/2024 Gastroesophageal reflux disease withou (more content not included)... [facility] 03-21-2025 Note HNO ID: [id number] Author: CHAD MARIEE APRN.REPAIRER RESISTANCE WELDING MACHINES Service: ? Author Type: Nurse Practitioner Type: Progress Notes Filed: 03/22/2025 13:28 Note Text: Chief Complaint Patient presents with: Established Patient HPI: Dom Avila is a 69 year old female who presents here today for follow up DCIS. Per Dr. Georges previous note: H/o jgz-jyidkjn-ftvhqakty diabetes mellitus, hypertension, ASCAD, and TIA who [...] breast lumpectomy for DCIS on 04/08/2021 at [facility] Pathology (from [facility]) reveals - ductal carcinoma in situ...,size of DCIS - 1.0 x 0.4 cm...,architectural type - cribriform..., nuclear grade 1-2..., necrosis - present central (expansive comedo necrosis)..., biopsy cavity is 0.5 cm from closest anterior margin (which is skin)..., ER >95%, LA >95% Postoperative course is unremarkable with no swelling or pain in her lumpectomy site. She is here today to discuss adjuvant therapy and chemoprevention for breast cancer. RADIATION:06/03/21 - 06/24/21 Current therapy:Tamoxifen Began after radiation No new concerns today. Appetite:It's not like it used to be. Wt. up 4# since 2023. Energy level:Pretty good. Denies fevers or recent illness. +covid in 2024 Resp:denies cough or sob-follow up by PULM h/o seasonal allergies/sleep apnea-wears CPAP at hs Sometimes-not much lately. Cardiac:denies chest pain/occ. palpitations-Followed by cardiology twice yearly GI:denies abd pain, n/v, h/o IBS, occ. constipation/diarrhea-followed by Dr. Friend/GI :denies dysuria/hematuria Extrem:denies pain Endo:denies hot flashes Neuro:denies symptoms of neuropathy Skin:denies rashes/lesions Heme:denies bleeding, over due for RUNSTITCHING MACHINE OPERATOR exam The ROS is otherwise negative. Past medical history, appointments, medications, allergies reviewed. No changes. EXAM: BP 163/88 Pulse 63 Temp 36.4 ?C (97.6 ?F) (Temporal) Wt 65.2 kg (143 lb 11.8 oz) SpO2 97% BMI 25.46 kg/m? APPEARANCE Well appearing, alert, in no acute distress, well-hydrated, well nourished. HEART RRR with normal S1 and S2, no murmurs LUNG clear to auscultation BREAST FEMALE no mass/nodule b/l LYMPH NODES No cervical lymphadenopathy, No supraclavicular [...] on exam. - Tolerating tamoxifen well. - Reviewed mammogram with pt. - Continue tamoxifen. - Mammogram due March 2026. 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 - Needs follow up/yearly pelvic with RUNSTITCHING MACHINE OPERATOR-Marck Dumont CNP. - Follow up in 6 months. - Pt. aware to call office with any questions/concerns. The patient indicates understanding of these issues and agrees with the plan. All documentation from previous visit of 09/14/24-Dr. Georges/myself was copied and pasted, documentation has been reviewed and edited as necessary for today's visit. Chad Mariee APRN.REPAIRER RESISTANCE WELDING MACHINES [facility] 03-21-2025 History of Present illness Narrative Chief Complaint Patient presents with: Established Patient HPI: Dom Avila is a 69 year old female who presents here today for follow up DCIS. Per Dr. Georges previous note: H/o ikw-nkmkfze-xjqsfvflv diabetes mellitus, hypertension, ASCAD, and TIA who [...] breast lumpectomy for DCIS on 04/08/2021 at [facility] Pathology (from [facility]) reveals - ductal carcinoma in situ...,size of DCIS - 1.0 x 0.4 cm...,architectural type - cribriform..., nuclear grade 1-2..., necrosis - present central (expansive comedo necrosis)..., biopsy cavity is 0.5 cm from closest anterior margin (which is skin)..., ER >95%, LA >95% Postoperative course is unremarkable with no swelling or pain in her lumpectomy site. She is here today to discuss adjuvant therapy and chemoprevention for breast cancer. RADIATION:06/03/21 - 06/24/21 Current therapy:Tamoxifen Began after radiation No new concerns today. Appetite:It's not like it used to be. Wt. up 4# since 2023. Energy level:Pretty good. Denies fevers or recent illness. +covid in 2024 Resp:denies cough or sob-follow up by PULM h/o seasonal allergies/sleep apnea-wears CPAP at hs Sometimes-not much lately. Cardiac:denies chest pain/occ. palpitations-Followed by cardiology twice yearly GI:denies abd pain, n/v, h/o IBS, occ. constipation/diarrhea-followed by Dr. Alcantar/GI :denies dysuria/hematuria Extrem:denies pain Endo:denies hot flashes Neuro:denies symptoms of neuropathy Skin:denies rashes/lesions Heme:denies bleeding, over due for RUNSTITCHING MACHINE OPERATOR exam The ROS is otherwise negative. Past medical history, appointments, medications, allergies reviewed. No changes. EXAM: BP 163/88 Pulse 63 Temp 36.4 C (97.6 F) (Temporal) Wt 65.2 kg (143 lb 11.8 oz) SpO2 97% BMI 25.46 kg/m APPEARANCE Well appearing, alert, in no acute distress, well-hydrated, well nourished. HEART RRR with normal S1 and S2, no murmurs LUNG clear to auscultation BREAST FEMALE no mass/nodule b/l LYMPH NODES No cervical lymphadenopathy, No supraclavicular [...] on exam. - Tolerating tamoxifen well. - Reviewed mammogram with pt. - Continue tamoxifen. - Mammogram due March 2026. 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 - Needs follow up/yearly pelvic with RUNSTITCHING MACHINE OPERATOR-Marck Dumont CNP. - Follow up in 6 months. - Pt. aware to call office with any questions/concerns. The patient indicates understanding of these issues and agrees with the plan. All documentation from previous visit of 09/14/24-Dr. Georges/myself was copied and pasted, documentation has been reviewed and edited as necessary for today's visit. Chad Mariee APRN.ELIZABETH documented in this encounter [facility] 03-16-2025 Instructions Alexa Matute MD - 03/16/2025 8:49 AM EDT Please do CT adrenal in one year from now. Hold metformin for 2 days before the imaging scan We shall also do lab work next year February 2026 documented in this encounter [facility] 03-16-2025 Note HNO ID: [id number] Author: ALEXA MATUTE MD Service: ? Author Type: Physician Type: Progress Notes Filed: 03/16/2025 09:08 Note Text: [facility] Follow up note Patient referred by: Ori Lord DO (Urology) History of Present Illness: Ms. Dom Avila is a 69 year old female coming today for follow up evaluation of adrenal nodule. She is following after labs checked for functionality of nodule Initial visit 07/11/24 LV 02/16/25 History in brief, She was seeing urology for UTIs, which first started 1-1.5 years ago. She has had atleast 2 or 3 within 1 year. She thinks she is not having any UTIs since last fall Patient Also described the following: Lost weight due to low appetite Has palpitations intermittently and was diagnosed to have PVCs Denied, Skin stretch benton, easy bruising, excess hair growth over face/chin/chest/or abdomen, voice hoarseness, difficulty raising arms overhead, difficulty getting up from a seated position Headache, Flushing, sweating, Chest pain, Tremors Episodes of Headache, Sweating, palpitations or tremor: No Previous use of Steroids, oral, inhalers, injections: short term use Interval history: 03/16/2025 Patient reports starting on amlodipine 5 mg daily recently Although she knows adrenal probably isn't related, she would like to find if I have any suggestions/insight into her c/o hair loss and feeling cold intermittently bartolome in her extremities She had covid 5 times and she is on tamoxifen for hx of breast cancer Past Medical History: PAST MEDICAL HISTORY Diagnosis Date Advance directive discussed with patient 04/08/2023 Discussed 03/2023: Up to date Amaurosis fugax 10/29/2017 TIA; right visual disturbance 06/2017 Arthritis tendonitis, arthritis 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 [place]ispaw Garibay's cyst of knee, left 03/02/2018 Breast neoplasm, Tis (DCIS), left 03/2021 Cataract Colon polyp 2011 Controlled type 2 diabetes mellitus without complication, without long-term current use of insulin ([facility]) 10/22/2016 De Quervain's tenosynovitis, left 07/31/2019 Diabetic eye exam (HCC) 01/16/2016 Lat done: 12/03/2017 No retinopathy Ductal carcinoma in situ (DCIS) of left breast 05/26/2021 Ductal carcinoma in situ of left breast 04/2021 Encounter for Medicare annual wellness exam 04/08/2023 Medicare Part B: 07/09/2022 Last done: 04/08/2023 Essential hypertension 01/16/2016 Female pattern hair loss Foot callus 05/26/2021 Gastroesophageal reflux disease without esophagitis 10/18/2024 History of colon polyps History of depression when History of hyperparathyroidism History of transient ischemic attack (TIA) 10/29/2017 06/29/2017 - R homonomous hemianopia with aphasia for couple hours - negative MRI/A following day Irritable bowel syndrome with diarrhea 05/26/2021 Living will on file at physician's office 04/08/2023 DPA: Carmella () Meniere disease, right 10/29/2017 Mixed hyperlipidemia 05/31/2009 statin intolerance Narcolepsy without cataplexy ([facility]) 01/16/2016 Especially with long drives. Has been on provigil for 5-10 yrs Obstructive sleep apnea on CPAP Sibilia Other skin changes 09/26/2021 Seeing derm Pancreatic insufficiency ([facility]) 04/08/[address] Ortiz [place] RLS (restless legs syndrome) 02/22/[address] Aysha Laurent with ocular symptoms S/P angioplasty with stent 01/09/2017 stents to mid and proximal left anterior descending Art, and angio of ostium of #2 diagonal Scalp itch Seasonal allergies Dr Pompa Type 2 diabetes mellitus with hyperlipidemia ([facility]) 04/17/2024 Vitamin D deficiency 2013 Well adult exam 01/16/2016 Last done: 09/08/2018 Surgical History: PAST SURGICAL HISTORY Procedure Laterality Date 2D ECHO (EXEP) 06/30/2017 EF=65%, trivial CT, TI and 1+ PI Unchanged from 04/2017 2D ECHO (EXEP) 05/14/2021 EF=60%, 1+ TI, trival CT, AI, PI 2D ECHO (EXEP) 09/16/2021 EF=60%, [...] L4 L5 MASTECTOMY, PARTIAL Left 04/08/2021 PAST HERNANDEZ (more content not included)... [facility] 03-16-2025 History of Present illness Narrative [facility] Follow up note Patient referred by: Ori Lord DO (Urology) History of Present Illness: Ms. Dom Avila is a 69 year old female coming today for follow up evaluation of adrenal nodule. She is following after labs checked for functionality of nodule Initial visit 07/11/24 LV 02/16/25 History in brief, She was seeing urology for UTIs, which first started 1-1.5 years ago. She has had atleast 2 or 3 within 1 year. She thinks she is not having any UTIs since last fall Patient Also described the following: Lost weight due to low appetite Has palpitations intermittently and was diagnosed to have PVCs Denied, Skin stretch benton, easy bruising, excess hair growth over face/chin/chest/or abdomen, voice hoarseness, difficulty raising arms overhead, difficulty getting up from a seated position Headache, Flushing, sweating, Chest pain, Tremors Episodes of Headache, Sweating, palpitations or tremor: No Previous use of Steroids, oral, inhalers, injections: short term use Interval history: 03/16/2025 Patient reports starting on amlodipine 5 mg daily recently Although she knows adrenal probably isn't related, she would like to find if I have any suggestions/insight into her c/o hair loss and feeling cold intermittently bartolome in her extremities She had covid 5 times and she is on tamoxifen for hx of breast cancer Past Medical History: PAST MEDICAL HISTORY Diagnosis Date Advance directive discussed with patient 04/08/2023 Discussed 03/2023: Up to date Amaurosis fugax 10/29/2017 TIA; right visual disturbance 06/2017 Arthritis tendonitis, arthritis 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 Encounter for Medicare annual wellness exam 04/08/2023 Medicare Part B: 07/09/2022 Last done: 04/08/2023 Essential hypertension 01/16/2016 Female pattern hair loss Foot callus 05/26/2021 Gastroesophageal reflux disease without esophagitis 10/18/2024 History of colon polyps History of depression when History of hyperparathyroidism History of transient ischemic attack (TIA) 10/29/2017 06/29/2017 - R homonomous hemianopia with aphasia for couple hours - negative MRI/A following day Irritable bowel syndrome with diarrhea 05/26/2021 Living will on file at physician's office 04/08/2023 DPA: Carmella () Meniere disease, right 10/29/2017 Mixed hyperlipidemia 05/31/2009 statin intolerance 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 Has been on provigil for 5-10 yrs Obstructive sleep apnea on CPAP Sibilia Other skin changes 09/26/2021 Seeing derm Pancreatic insufficiency (HCC) 04/08/[address] Friend Psoriasis RLS (restless legs syndrome) 02/22/[address] Olmstead Rosaroxanne with ocular symptoms S/P angioplasty with stent 01/09/2017 stents to mid and proximal left anterior descending Art, and angio of ostium of #2 diagonal Scalp itch Seasonal allergies Dr Pompa Type 2 diabetes mellitus with hyperlipidemia (HCC) 04/17/2024 Vitamin D deficiency 2012 Well adult exam 01/16/2016 Last done: 09/08/2018 Surgical History: PAST SURGICAL HISTORY Procedure Laterality Date 2D ECHO (EXEP) 06/30/2017 EF=65%, trivial CT, TI and 1+ PI Unchanged from 04/2017 2D ECHO (EXEP) 05/14/2021 EF=60%, 1+ TI, trival CT, AI, PI 2D ECHO (EXEP) 09/16/2021 EF=60%, [...] LEDA for benign fibroid, ovaries intact Family Medical History: FAMILY HISTORY Problem Relation Age of Onset other (Pancreatic cancer) Mother Coronary Artery Disease Father [address] @ 25. CABG Diabetes Father Diabetes Paternal Grandmother Diabetes Maternal Grandfather other (Lung cancer) Brother other (suicide) Son may of been depression Social History: Social History Tobacco Use Smoking status: Former Current packs/day: 0.00 Average packs/day: 1.5 packs/day for 3.0 years (4.5 ttl pk-yrs) Types: Cigarettes Start date: 11/08/1991 Quit date: 11/08/1994 Years since quittin.3 Smokeless tobacco: Never Tobacco comments: smoked 3 years in mid 90s Vaping Use Vaping status: Never Used Substance Use Topics Alcohol use: No Drug use: No Allergies: ALLERGIES Allergen Reactions Brilinta [Ticagrelo* Shortness of Breath Crestor [Rosuvastat* Myalgia Keflex [Cephalexin] Other: See Comments facial flushing Lipitor [Atorvastat* Other: See Comments myalgia Lovastatin Other: See Comments myalgia Hughes [Hydrocodone-* Itching Current medications: Current Outpatient Medications Medication Sig metoprolol tartrate, short acting, (LOPRESSOR) 25 mg tablet Take 25 mg by mouth two times a day. amLODIPine (NORVASC) 5 mg tablet Take 1 tablet by mouth once daily. dicyclomine (BENTYL) 20 mg tablet Take 20 mg by mouth four times a day as needed (IBS symptoms). tamoxifen (NOLVADEX) 20 mg tablet TAKE 1 TABLET ONE TIME DAILY omeprazole (PRILOSEC) 40 mg capsule Take 1 capsule by mouth once daily. ezetimibe (ZETIA) 10 mg tablet Take 1 tablet by mouth once daily. pioglitazone (ACTOS) 15 mg tablet Take 1 tablet by mouth once daily. OTC NUTRITIONAL SUPPLEMENT vitamin coenzyme Q10 (COENZYME Q-10) 100 mg cap capsule Take 100 mg by mouth once daily. ixnmtp-dftyshuc-vwlksfr (CREON 36) 36,000-114,000- 180,000 unit delayed release capsule Take 2-3 capsules by mouth with meals and at bedtime. lisinopril (ZESTRIL) 40 mg tablet Take 40 mg by mouth once daily. estradiol (ESTRACE) 0.01 % (0.1 mg/gram) vaginal cream Use 1 g vaginally as directed. Insert 1 gm vaginally every night x 14 nights then insert 1 gm vaginally twice weekly (Patient taking differently: Use 1 g vaginally two times a week.) Calcium Citrate-Vitamin D3 (CITRACAL+D) 315 mg-6.25 mcg (250 unit) tab Take 2 tablets by mouth once daily. metFORMIN (GLUCOPHAGE) 500 mg tablet Take 2 tablets by mouth twice daily with meals. ammonium lactate (LAC-HYDRIN) 12 % lotion Apply 1 application to affected area twice daily as needed. Clobetasol Propionate 0.05 % gel Apply 1 application to affected area as needed. acetaminophen (TYLENOL) 500 mg tablet Take 1,000 mg by mouth every 8 hours as needed. nitroglycerin sublingual (NITROQUICK) 0.4 mg SL tablet Dissolve 1 tablet under the tongue every 5 minutes as needed for Chest Pain. ketoconazole (NIZORAL) 2 % shampoo Apply 1 application to affected area once daily as needed. montelukast (SINGULAIR) 10 mg tablet Take 10 mg by mouth daily at bedtime. LACTOBACILLUS ACIDOPHILUS (PROBIOTIC ORAL) Take 1 tablet by mouth once daily. CPAP No current facility-administered medications for this visit. Review of Systems: Pertinent as per HPI Physical exam: There were no vitals taken for this visit. General Appearance: Well appearing, alert, in no acute distress, well-hydrated, well nourished, thin to moderately built Eyes: Extraocular movements are intact. Neck: Supple, no adenopathy; thyroid symmetric, normal size, no bruits. Lungs: unlabored breathing on room air Heart: RRR Extremities: No deformities, edema, skin discoloration, clubbing or cyanosis. Peripheral Pulses: Normal. Neurologic: Gait normal. Previous laboratory results: Latest Ref Rng 04/17/2024 Protein, Total 6.3 - 8.0 g/dL 6.3 Albumin 3.9 - 4.9 g/dL 3.8 (L) Calcium 8.5 - 10.2 mg/dL 8.9 Bilirubin, Total 0.2 - 1.3 mg/dL 0.2 Alkaline Phosphatase 34 - 123 U/L 37 AST 13 - 35 U/L 20 ALT 7 - 38 U/L 11 Glucose 74 - 99 mg/dL 119 (H) BUN 7 - 21 mg/dL 11 Creatinine 0.58 - 0.96 mg/dL 0.78 Sodium 136 - 144 mmol/L 142 Potassium 3.7 - 5.1 mmol/L 4.1 Chloride 98 - 107 mmol/L 105 CO2 22 - 30 mmol/L 26 Anion Gap 8 - 15 mmol/L 11 eGFR >=60 mL/min/1.73m 84 Latest Ref Rng 10/02/2024 8.18 am 10/03/2024 8.11 am 11/07/2024 9.27 am Hours Collected hr 24 Total Volume mL 1950 Creatinine, Urine Per Volume mg/dL 41 Creatinine, Urine Per 24H 500 - 1400 mg/d 800 Cortisol ug/g Wall Mirror Department Supervisor, Ur (UFRCRT) ug/g SENIOR PORTFOLIO ANALYST 16.32 Free Cortisol ug/L, Urine ug/L 6.69 Free Cortisol ug/day, Urine <=45.0 ug/d 13.0 Free Cortisol UR, Interpretation See Note Aldosterone 0.0 - <35.4 ng/dL 6.1 Direct Renin 3.6 - 81.6 pg/mL 5.2 Aldosterone/Renin Ratio <3.8 1.2 Patient Upright or Supine Upright Creatinine 24 hr Ur 0.800 - 1.800 g/24 hr 0.786 (L) Period hr 24 Urine Volume 24 hour mL 1,950 Potassium 3.7 - 5.1 mmol/L 3.8 DHEA-S <=246.9 ug/dL 44.2 ACTH 7.2 - 63.3 pg/mL 25.6 28.4 Dexamethasone ng/dL <50.0 Cortisol,ON DEX,Post <1.8 ug/dL 2.0 (H) Latest Ref Rng 02/21/2025 Dexamethasone ng/dL 327.4 Cortisol,ON DEX,Post <1.8 ug/dL 0.7 ACTH 7.2 - 63.3 pg/mL 1.9 (L) Legend: (H) High (L) Low Imaging: CT abdomen/pelvis: 11/25/2022: RESULT: Liver: Stable subcentimeter hypodensity within the left lobe 2 small fully characterize, most likely benign etiology. No further focal abnormality is seen. Hepatic steatosis. Biliary: No bile duct dilation. Gallbladder is absent. Spleen: No mass. No splenomegaly. Pancreas: No mass or duct dilation. Adrenals: Right adrenal gland is unremarkable. On coronal images, for example 5:78, there appears to be a hypodense nodule extending from the adrenal gland the overall size measuring 2.4 x 1.5 cm. Correlation with previous abdominal CT demonstrates lesion to be stable, adenoma considered as a possible etiology. Kidneys: Stable 1 cm low-attenuation lesion in the right lower pole, most consistent with simple cysts. Smaller hypodense lesion within the medial midpole of the left kidney, too small to fully characterize, benign etiology suspected. No hydronephrosis or renal calculus bilaterally. GI tract: No dilation or wall thickening. Normal appendix. Lymph nodes: No abdominal or pelvic lymphadenopathy. Mesentery/Peritoneum: No ascites or mass. Retroperitoneum: No mass. Vasculature: - Abdominal aorta and iliac arteries: No aneurysm. - Celiac and SMA: Patent without stenosis. - Portal venous system (SMV, splenic vein, portal vein and branches): Patent. - Hepatic veins: Patent. Pelvis: No mass, ascites or fluid collection. Prior hysterectomy Bones/Soft Tissues: No significant finding. Lower thorax: Unremarkable. Jewish Thought Professor (topogram) images: No additional findings. IMPRESSION: Stable hypodensity within the left hepatic lobe, most consistent with benign etiology. Hepatic steatosis. Probable small cysts of the kidneys. There is a hypodensity which appears to extend from the left adrenal gland, stable, possible etiologies include adenoma. Previous Adrenal CT: CT abdomen/pelvis w IV contrast : 09/2022 with no adrenal nodules - reviewed images also do not have a similar hypodensity seen on the CT in 11/2022 CT abdomen 06/2024 with reportedly normal B/L adrenal nodules CT adrenal w/wo IV contrast: 08/15/24 COMPARISON: CT abdomen and pelvis 11/25/2022 and prior RESULT: Adrenal glands: Right adrenal gland: No nodules, masses or thickening. Left adrenal gland: A 0.7 x 0.6 x 1.0 cm hypoattenuating nodule of the left adrenal gland demonstrates precontrast attenuation of adenoma (6 HU), no significant interval change compared to 05/2019 also favoring benign process. Abdomen: Liver: Unremarkable. Biliary System: Gallbladder is underdistended. Spleen: No splenomegaly. Punctate calcifications likely granulomas. Pancreas: No pancreatic duct dilation. Otherwise unremarkable. Kidneys: No stones or hydronephrosis. Stable 1.1 cm cortical cyst in the right lateral interpolar region. Lymph Nodes: No abdominal lymphadenopathy. Mesentery/Peritoneum: Minimal fat stranding in the mesentery of the left flank adjacent small bowel but no focal lesion or obstruction. No ascites or mass. GI Tract: Imaged segments are unremarkable. Vasculature: No aortic aneurysm, no significant atherosclerotic plaque Lower thorax and bones: No significant findings. [employer] Thought Professor (topogram) images: No additional findings. IMPRESSION: 1. Stable 1.0 cm left adrenal adenoma. 2. Minimal mesenteric fat stranding in the left flank, nonspecific. ASSESSMENT/PLAN: Left adrenal nodule/incidentaloma CT adrenal shows stable 1 cm left adrenal adenoma. Given characteristics of the nodule, it appears to be benign, also will not test for Pheo ARR with no concerns. Cortisol on DST is elevated (patient reports taking medication on the night before the test although labs not done as instructed) We did 24 hr urine cortisol which was normal and ACTH in am (although later than indicated) is normal, not consistent with adrenal causes of excess cortisol production 2 mg DST was done and was appropriately suppressed We discussed monitoring with imaging and labs in one year- orders for imaging with CT adrenal w/wo contrast placed. Advised holding metformin for 2 days before the imaging Gave options for doing labs before vs after the next visit, due to need for ordering Dexa 1 year from now- she is okay with both options. Advised doing DHEA-s and ACTH on fasting at 8 am before the next appointment, and at the time of follow up visit, will check for LDDST again Cold intolerance. Hair loss: Reviewed hair loss can be seen in multiple medical conditions including covid infection, tamoxifen, thyroid, anemia etc. Cold intolerance etiologies reviewed as well Will check TSH and if normal, no further testing from hormonal standpoint She voiced understanding of the plan, and agrees Follow up in 1 year. Sooner if thyroid is abnormal and she would like to follow endocrinology for this Medical Decision Making: Problems: Low: Stable chronic illness Data: Unique test result(s) reviewed: 3+ Unique test(s) ordered: 3+ Risk: Moderate: Moderate risk from testing/treatment Medical Decision Making Level: 4 - Moderate SIGNATURE: Alexa Matute MD DATE of SERVICE: March 16, 2025 TIME of SERVICE: 8.40 AM documented in this encounter [facility] 03-14-2025 Note HNO ID: [id number] Author: ?, ?, ? Service: ? Author Type: ? Type: Progress Notes Filed: 03/14/2025 11:10 Note Text: POPULATION HEALTH NAVIGATION OUTREACH Action/FYI Patient returned mychart message. Had has several eye visits and will forward reports to close gaps. Reason for Outreach Returned Call/MyChart Patient Contacted: Spoke to patient/parent/or legal guardian Patient identified by name and date of : Yes Returned call/MyChart actions taken: No action required Navigation Signature: Caro Alonzostef Cassidy March 14, 2025 11:09 AM [facility] 03-14-2025 History of Present illness Narrative Radiology Service Progress Note PATIENT NAME: Dom Avila DATE OF SERVICE: March 14, 2025 TIME: 7:56 AM PATIENT IDENTITY VERIFICATION COMPLETED USING TWO (2) IDENTIFIERS: Name and Date of confirmed by patient verbally. FALL SCREENING: Has the patient had 2 falls in the last year or 1 fall with injury or currently using an Ambulatory Assistive Device (Walker, Cane, Wheelchair, Crutches, etc.)? No PATIENT GENDER DATA: Assigned female at . status: : No status: NO. PATIENT RELEVANT IMPLANT DATA REVIEWED: Not Applicable PATIENT PRESENTS WITH AN IMPLANTABLE OR ATTACHED HOT END OPERATOR: No RADIOLOGY DEPARTMENT: Mammography PERIPHERAL IV DATA: Not applicable SIGNED BY: Brandon Snow March 14, 2025 7:56 AM documented in this encounter [facility] 03-14-2025 Note HNO ID: [id number] Author: DEBBY LIN Mammo Tech Service: ? Author Type: Loom Setter Fourdrinier Type: Progress Notes Filed: 03/14/2025 07:56 Note Text: Radiology Service Progress Note PATIENT NAME: Dom Avila DATE OF SERVICE: March 14, 2025 TIME: 7:56 AM PATIENT IDENTITY VERIFICATION COMPLETED USING TWO (2) IDENTIFIERS: Name and Date of confirmed by patient verbally. FALL SCREENING: Has the patient had 2 falls in the last year or 1 fall with injury or currently using an Ambulatory Assistive Device (Walker, Cane, Wheelchair, Crutches, etc.)? No PATIENT GENDER DATA: Assigned female at . status: : No status: NO. PATIENT RELEVANT IMPLANT DATA REVIEWED: Not Applicable PATIENT PRESENTS WITH AN IMPLANTABLE OR ATTACHED HOT END OPERATOR: No RADIOLOGY DEPARTMENT: Mammography PERIPHERAL IV DATA: Not applicable SIGNED BY: Debby Lin [employer] March 14, 2025 7:56 AM [facility] 03-13-2025 Note HNO ID: [id number] Author: ?, ?, ? Service: ? Author Type: ? Type: Progress Notes Filed: 03/13/2025 09:23 Note Text: POPULATION HEALTH NAVIGATION OUTREACH Action/FYI Patient outreach for HCC gaps; BEN. KED labs are scheduled for 04/06, Mammogram scheduled for 03/14. AWV scheduled. LVM and sent mychart to close gaps. Reason for Outreach Care Gap/HCC or Scheduling Wellness Visits Care Gaps due: Diabetic Eye Exam Patient Contacted: Unable or unnecessary to reach patient: Left message MyChart message sent HCC related Updated appointment notes Navigation Signature: Caro Cassidy March 13, 2025 9:16 AM [facility] 03-13-2025 History of Present illness Narrative POPULATION HEALTH NAVIGATION OUTREACH Action/FYI Patient outreach for HCC gaps; BEN. KED labs are scheduled for 04/06, Mammogram scheduled for 03/14. AWV scheduled. LVM and sent mychart to close gaps. Reason for Outreach Care Gap/HCC or Scheduling Wellness Visits Care Gaps due: Diabetic Eye Exam Patient Contacted: Unable or unnecessary to reach patient: Left message MyChart message sent HCC related Updated appointment notes Navigation Signature: Caro Cassidy March 13, 2025 9:16 AM documented in this encounter [facility] 03-13-2025 Note Patient Outreach (DOM[facility]O TNAV) ---- DOM AVILA ([id number]) 1955 F Date Time Provider Department 03/13/25 [facility] During your visit today, we recorded the following information about you: Caro Cuenca 03/13/2025 9:23 AM Signed POPULATION HEALTH NAVIGATION OUTREACH Action/FYI Patient outreach for HCC gaps; BEN. KED labs are scheduled for 04/06, Mammogram scheduled for 03/14. AWV scheduled. LVM and sent mychart to close gaps. Reason for Outreach Care Gap/HCC or Scheduling Wellness Visits Care Gaps due: Diabetic Eye Exam Patient Contacted: Unable or unnecessary to reach patient: Left message MyChart message sent HCC related Updated appointment notes Navigation Signature: Caro Cassidy March 13, 2025 9:16 AM Caro Cuenca 03/14/2025 11:10 AM Signed POPULATION HEALTH NAVIGATION OUTREACH Action/FYI Patient returned mychart message. Had has several eye visits and will forward reports to close gaps. Reason for Outreach Returned Call/MyChart Patient Contacted: Spoke to patient/parent/or legal guardian Patient identified by name and date of : Yes Returned call/MyChart actions taken: No action required Navigation Signature: Caro Cassidy March 14, 2025 11:09 AM Allergies As of Date: 03/13/2025 Noted Allergy Reaction BRILINTA (TICAGRELOR) 06/28/2017 12 - Shortness of Breath CRESTOR (ROSUVASTATIN) 04/10/2020 17 - Myalgia KEFLEX (CEPHALEXIN) 02/02/2006 14 - Other: See Comments Comments: facial flushing LIPITOR (ATORVASTATIN) 07/21/2013 14 - Other: See Comments Comments: myalgia LOVASTATIN 07/21/2013 14 - Other: See Comments Comments: myalgia NORCO (HYDROCODONE-ACETAMINOPHEN) 10/29/2016 9 - Itching Date Reviewed: 02/19/2025 Reviewed by: Lachelle Lemons - Fully Assessed Reason for Visit: Population Health Navigation Outreach [3910] Cmt: Polo Zhengoster Prescriptions as of 03/14/2025 - amLODIPine (NORVASC) 5 mg tablet Take 1 tablet by mouth once daily. - dicyclomine (BENTYL) 20 mg tablet three times a day. - dexAMETHasone (DECADRON) 0.5 mg tablet Take the tablet at 11 pm and go for labs the next morning on fasting at 8 am - tamoxifen (NOLVADEX) 20 mg tablet TAKE 1 TABLET ONE TIME DAILY - omeprazole (PRILOSEC) 40 mg capsule Take 1 capsule by mouth once daily. - ezetimibe (ZETIA) 10 mg tablet Take 1 tablet by mouth once daily. - pioglitazone (ACTOS) 15 mg tablet Take 1 tablet by mouth once daily. - OTC NUTRITIONAL SUPPLEMENT vitamin - coenzyme Q10 (COENZYME Q-10) 100 mg cap capsule Ubidecarenone Active 100 MG DAILY August 23, 2019 3:27pm - lftgma-bmupcwpu-nlsoczy (CREON 36) 36,000-114,000- 180,000 unit delayed release capsule .COMPLEX - lisinopril (ZESTRIL) 40 mg tablet Take 40 mg by mouth once daily. - estradiol (ESTRACE) 0.01 % (0.1 mg/gram) vaginal cream Use 1 g vaginally as directed. Insert 1 gm vaginally every night x 14 nights then insert 1 gm vaginally twice weekly - Calcium Citrate-Vitamin D3 (CITRACAL+D) 315 mg-6.25 mcg (250 unit) tab Take 2 tablets by mouth once daily. - metFORMIN (GLUCOPHAGE) 500 mg tablet Take 2 tablets by mouth twice daily with meals. - ammonium lactate (LAC-HYDRIN) 12 % lotion Apply 1 application to affected area twice daily as needed. - Clobetasol Propionate 0.05 % gel Apply 1 application to affected area as needed. - acetaminophen (TYLENOL) 500 mg tablet Take 1,000 mg by mouth every 8 hours as needed. - nitroglycerin sublingual (NITROQUICK) 0.4 mg SL tablet Dissolve 1 tablet under the tongue every 5 minutes as needed for Chest Pain. - ketoconazole (NIZORAL) 2 % shampoo Apply 1 application to affected area once daily as needed. - montelukast (SINGULAIR) 10 mg tablet Take 10 mg by mouth daily at bedtime. - metoprolol succinate ER (TOPROL XL) 25 mg 24 hr tablet Take 1 tablet by mouth twice daily. Per Dr. Gomez - LACTOBACILLUS ACIDOPHILUS (PROBIOTIC ORAL) Take 1 tablet by mouth once daily. 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 [facility] 02-19-2025 Instructions Ori Lord DO - 02/19/2025 9:06 AM EDT We discussed your adrenal nodule: - You are undergoing further testing, including the dexamethasone suppression test, which you are starting today. - Your next appointment with the block sorter is scheduled for March 16. Please continue to follow their recommendations. We discussed your urinary symptoms: - You reported ongoing leakage, even after cutting back on coffee. You are not experiencing frequent urination during the day, and you wake up once at night to urinate. - At this time, I am not recommending medications or procedures since the symptoms are not significantly bothering you. - If your symptoms worsen or become more bothersome, please let me know. At that point, we can consider a urodynamics test to evaluate your bladder function. - If you experience new issues such as a bladder infection, blood in the urine, or other concerns, please contact me sooner. We discussed conservative management for urinary leakage: - You have been performing Kegel exercises. I offered a referral to pelvic floor physical therapy for a formal program to ensure proper technique, but we decided to hold off for now. We discussed your nighttime water intake: - Drinking water earlier in the day may help reduce nighttime urination. Follow-up instructions: - Please return for a follow-up visit in 6 months. - At your next visit, please arrive with a full bladder so we can obtain a new urine sample. - Continue to follow up with your block sorter as planned. If you have any new or worsening symptoms, please contact our office. documented in this encounter [facility] 02-19-2025 History of Present illness Narrative Images from the original note were not included. [facility] ESTABLISHED PATIENT NOTE/HISTORY AND PHYSICAL PATIENT: Dom Vel Avila (69 year old) PCP: Cilfton Hung MD DATE OF SERVICE: 02/19/2025 SUBJECTIVE: CHIEF COMPLAINT: Follow Up (6 mo f/u. Patient has no new complaints and denies any urinary issues. ) HISTORY OF PRESENT ILLNESS: Recording using [employer] software for draft documentation of the visit was discussed with the patient/authorized healthcare sales representative; all questions welcomed and answered. Patient/authorized healthcare sales representative agreed to proceed The patient was last seen by Ori Lord DO on 07/2024 . Prior notes were reviewed. Patient returns today for follow up . The patient reports persistent urinary incontinence, characterized by variable leakage, with some days experiencing significant leakage and other days less so. She has reduced her coffee intake to zero, consuming only occasional tea in the mornings, but continues to experience leakage. She denies frequent urination during the daytime and reports waking up once at night to urinate, attributing this to her high water intake. Initially, the leakage was associated with coughing and sneezing, but she now experiences leakage even while sitting without any precipitating factors. She has been performing Kegel exercises as recommended by a previous clinician. Additionally, she reports a rash near the rectal area, which she believes is secondary to episodes of diarrhea related to her pancreatic issues. She is currently using vaginal estrogen cream and is undergoing evaluation for an adrenal gland nodule, with a dexamethasone suppression test scheduled and a follow-up appointment with her block sorter on March 16. 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 (01/09/2017), Garibay's cyst of knee, left (03/02/2018), Breast neoplasm, Tis (DCIS), 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), Cataract, Colon polyp (2011), Controlled type 2 diabetes mellitus without complication, without long-term current use of insulin ([facility]) (10/22/2016), De Quervain's tenosynovitis, left (07/31/2019), Diabetic eye exam ([facility]) (01/16/2016), 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), 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), Encounter for Medicare annual wellness exam (04/08/2023), Essential hypertension (01/16/2016), Female pattern hair loss, Foot callus (05/26/2021), Gastroesophageal reflux disease without esophagitis (10/18/2024), History of colon polyps, History of depression, History of hyperparathyroidism, History of transient ischemic attack (TIA) (10/29/2017), Irritable bowel syndrome with diarrhea (05/26/2021), Living will on file at physician's office (04/08/2023), Meniere disease, right (10/29/2017), Mixed hyperlipidemia (05/31/2009), 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 Past Surgical History: -Patient has a past surgical history that includes cholecystectomy (2004); past surgical history of (2004); total abdominal hysterect w/wo rmvl tube ovary (1995); past surgical history of; heart catheterization (2004); past surgical history of (10/2006); delivery only; low back disk surgery (2009); bunionectomy, lapidus-type (2009); colonoscopy & polypectomy (10/12, 10/13); colonoscopy (08/07/2015); past surgical history of (2014); heart catheterization (01/04/2017); 2d echo (exep) (06/30/2017); stent placement (01/06/2017); stress test (04/20/2017); past surgical history of (Right, 10/2016); heart surgery hx (12/2016); colonoscopy flx dx w/collj spec when pfrmd (08/09/2018); esophagogastroduodenoscopy transoral diagnostic (08/09/2018); heart catheterization (10/2018); bx breast w/device 1st lesion stereotactic guid (Left, 03/25/2021); mastectomy, partial (Left, 04/08/2021); breast lumpectomy hx (Left, 04/08/2021); 2d echo (exep) (05/14/2021); 2d echo (exep) (09/16/2021); and repair, detached retina, laser (Right). Medications: -Patient has a current medication list which includes the following prescription(s): amlodipine, dicyclomine, dexamethasone, tamoxifen, omeprazole, ezetimibe, pioglitazone, OTC NUTRITIONAL SUPPLEMENT, coenzyme q10, arvbtr-vycfroow-moigvjj, lisinopril, estradiol, calcium citrate-vitamin d3, metformin, ammonium lactate, clobetasol propionate, acetaminophen, nitroglycerin sublingual, ketoconazole, montelukast, metoprolol succinate er, lactobacillus acidophilus, and CPAP. Allergies: -Patient is allergic to brilinta [ticagrelor], crestor [rosuvastatin], keflex [cephalexin], lipitor [atorvastatin], lovastatin, and norco [hydrocodone-acetaminophen]. Family History: -Patient family history includes Coronary Artery Disease (age of onset: 25) in her father; Diabetes in her father, maternal grandfather, and paternal grandmother; Lung cancer in her brother; Pancreatic cancer in her mother; suicide in her son. Social History: -Patient reports that she quit smoking about 30 years ago. Her smoking use included cigarettes. She started smoking about 33 years ago. She has a 4.5 pack-year smoking history. She has never used smokeless tobacco. She reports that she does not drink alcohol and does not use drugs. I have confirmed and edited as necessary, the PFSH and ROS obtained by others. OBJECTIVE: PHYSICAL EXAMINATION: BP 164/80 Pulse 65 SpO2 99% Constitutional: Non-toxic , No acute distress. Psych: Calm, cooperative Eyes: Lids appear normal. Conjunctivae are not injected. Respiratory: No acute respiratory distress. No audible wheeze. : No Leonard DATA: Clinic: Urine dipstick shows: URINALYSIS: GLUCOSE UA (POCT) Negative 08/04/2024 BILIRUBIN UA (POCT) Negative 08/04/2024 KETONE UA (POCT) Negative 08/04/2024 SPECIFIC GRAVITY UA (POCT) 1.020 08/04/2024 HEMOGLOBIN/BLOOD UA (POCT) Negative 08/04/2024 PH UA (POCT) 6.0 08/04/2024 PROTEIN UA (POCT) Negative 08/04/2024 UROBILINOGEN UA (POCT) 0.2 08/04/2024 NITRITE UA (POCT) Negative 08/04/2024 LEUKOCYTES UA (POCT) Small 08/04/2024 COLOR UA (POCT) Yellow 08/04/2024 CLARITY UA (POCT) Clear 08/04/2024 Laboratory: Creatinine Date Value Ref Range Status 10/14/2024 0.79 0.58 - 0.96 mg/dL Final 08/08/2024 0.96 0.58 - 0.96 mg/dL Final 04/17/2024 0.78 0.58 - 0.96 mg/dL Final 04/02/2023 0.87 0.58 - 0.96 mg/dL Final Cultures: Culture Results - Past 1 Year Culture 04/19/2024 <10,000 CFU/ml Normal urogenital holland 04/25/2024 10,000 -<50,000 CFU/ml Normal urogenital holland Susceptibility Tests - Past 1 Year Collected Organism 04/19/24 Normal urogenital holland 04/25/24 Normal urogenital holland ASSESSMENT AND PLAN Dom Avila is 69 year old with: (N39.46) Urinary incontinence, mixed (primary encounter diagnosis) (R31.29) Microscopic hematuria (N95.8) Genitourinary syndrome of menopause (Z87.440) History of UTI (D35.01) 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) Renal cyst Medical records personally reviewed and found significant for: Cr, UCx, CT , note from Printmaker As background copied from prior notes, changes made: 69 yo F w/mult chronic urologic conditions: NELL (prev bothersome but improved significantly after d/c coffee but now again worsening, more frequent, larger volumes at times, nocturia still just x1), Micro heme (cysto 07/2024 completes w/u and negative (CT no stone or renal mass), Adrenal adenoma f/u w/endocrine (last seen 10/2024 reviewed note, recs appreciated), GSM (Estrace per other provider, still on this), h/o UTI 11/2023 E Coli If more bother , considering UDS. Declines PFPT referral. Given limited bother will not medication, or recommend procedure at this time. Plan: F/u endocrinology F/u ~6months -Patient will call the clinic or use MyChart should anything change or any new issues arise -All questions were answered Ori Lord DO Staff Urologist Medical Decision Making: Problems: Moderate: 2+ stable chronic illnesses Data: Unique test result(s) reviewed: 3+ Medical Decision Making Level: 4 - Moderate Please note: This note has been produced using speech recognition software and may contain errors related to that system including grammar, punctuation, spelling, gender and words and phrases that may be inappropriate. documented in this encounter [facility] 02-19-2025 Note HNO ID: [id number] Author: ORI LORD DO Service: ? Author Type: Physician Type: Progress Notes Filed: 02/19/2025 09:18 Note Text: [facility] ESTABLISHED PATIENT NOTE/HISTORY AND PHYSICAL PATIENT: Dom Avila (69 year old) PCP: Clifton Hung MD DATE OF SERVICE: 02/19/2025 SUBJECTIVE: CHIEF COMPLAINT: Follow Up (6 mo f/u. Patient has no new complaints and denies any urinary issues. ) HISTORY OF PRESENT ILLNESS: Recording using [employer] software for draft documentation of the visit was discussed with the patient/authorized healthcare sales representative; all questions welcomed and answered. Patient/authorized healthcare sales representative agreed to proceed The patient was last seen by Ori Lord DO on 07/2024 . Prior notes were reviewed. Patient returns today for follow up . The patient reports persistent urinary incontinence, characterized by variable leakage, with some days experiencing significant leakage and other days less so. She has reduced her coffee intake to zero, consuming only occasional tea in the mornings, but continues to experience leakage. She denies frequent urination during the daytime and reports waking up once at night to urinate, attributing this to her high water intake. Initially, the leakage was associated with coughing and sneezing, but she now experiences leakage even while sitting without any precipitating factors. She has been performing Kegel exercises as recommended by a previous clinician. Additionally, she reports a rash near the rectal area, which she believes is secondary to episodes of diarrhea related to her pancreatic issues. She is currently using vaginal estrogen cream and is undergoing evaluation for an adrenal gland nodule, with a dexamethasone suppression test scheduled and a follow-up appointment with her block sorter on March 16. 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 (01/09/2017), Garibay's cyst of knee, left (03/02/2018), Breast neoplasm, Tis (DCIS), 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), Cataract, Colon polyp (2011), Controlled type 2 diabetes mellitus without complication, without long-term current use of insulin ([facility]) (10/22/2016), De Quervain's tenosynovitis, left (07/31/2019), Diabetic eye exam ([facility]) (01/16/2016), 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), 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), Encounter for Medicare annual wellness exam (04/08/2023), Essential hypertension (01/16/2016), Female pattern hair loss, Foot callus (05/26/2021), Gastroesophageal reflux disease without esophagitis (10/18/2024), History of colon polyps, History of depression, History of hyperparathyroidism, History of transient ischemic attack (TIA) (10/29/2017), Irritable bowel syndrome with diarrhea (05/26/2021), Living will on file at physician's office (04/08/2023), Meniere disease, right (10/29/2017), Mixed hyperlipidemia (05/31/2009), Narcolepsy without cataplexy ([facility]) (01/16/2016), Obstructive sleep apnea on CPAP, Other skin changes (09/26/2021), Pancreatic insufficiency ([facility]) (04/08/2023), Psoriasis, RLS (restless legs syndrome) (02/22/2023), Rosacea, S/P angioplasty with stent (01/09/2017), Scalp itch, Seasonal allergies, Type 2 diabetes mellitus with hyperlipidemia ([facility]) (04/17/2024), Vitamin D deficiency (2012), and Well adult exam (01/16/2016). Past Surgical History: -Patient has a past surgical history that includes cholecystectomy (2004); past surgical history of (2004); total abdominal hysterect w/wo rmvl tube ovary (1995); past surgical history of; heart catheterization (2004); past surgical history of (10/2006); delivery only; low back disk surgery (2009); bunionectomy, lapidus-type (2009); colonoscopy AND polypectomy (10/12, 10/13); colonoscopy (08/07/2015); past surgical history of (2014); heart catheterization (01/04/2017); 2d echo (exep) (06/30/2017); stent placement (01/06/2017); stress test (04/20/2017); past surgical history of (Right, 10/2016); heart surgery hx (12/2016); colonoscopy flx dx w/collj spec when pfrmd (08/09/2018); esophagogastroduodenoscopy transoral diagnostic (08/09/2018); heart catheterization (10/2018); bx breast w/device 1st lesion stereotactic guid (Left, 03/25/2021); mastectomy, partial (Left, 04/08/2021); breast lumpectomy hx (Left, 04/08/2021); 2d echo (exep) (05/14/2021); 2d echo (exep) (09/16/2021); and repair, detached reti (more content not included)... [facility] 02-16-2025 Instructions Alexa Matute MD - 02/16/2025 9:26 AM EDT Please do a 2 day test: Dexamethasone 0.5 mg is administered orally every 6 hours (9 AM, 3 PM, 9 PM, 3 AM) for two days (total dose 4 mg). Serum cortisol level will be drawn 6 hours (9 AM) after the last administered dose. This will be on fasting. Please hold any supplements for 3 days before labs are drawn documented in this encounter [facility] 02-16-2025 Note HNO ID: [id number] Author: ALEXA MATUTE MD Service: ? Author Type: Physician Type: Progress Notes Filed: 02/18/2025 15:07 Note Text: [facility] Follow up note Patient referred by: Ori Lord DO (Urology) History of Present Illness: Ms. Dom Avila is a 68 year old female coming today for follow up evaluation of adrenal nodule. She is following after labs checked for functionality of nodule Initial visit 07/11/24 LV 11/03/24 History in brief, She was seeing urology for UTIs, which first started 1-1.5 years ago. She has had atleast 2 or 3 within 1 year. She thinks she is not having any UTIs since last fall Patient Also described the following: Lost weight due to low appetite Has palpitations intermittently and was diagnosed to have PVCs Denied, Skin stretch benton, easy bruising, excess hair growth over face/chin/chest/or abdomen, voice hoarseness, difficulty raising arms overhead, difficulty getting up from a seated position Headache, Flushing, sweating, Chest pain, Tremors Episodes of Headache, Sweating, palpitations or tremor: No Previous use of Steroids, oral, inhalers, injections: short term use Interval history: 02/16/2025: Patient reports starting on amlodipine 5 mg daily recently Denied any extra salt intake than that in the food naturally 24 hr urine labs done, after an abnormal DST and is normal Past Medical History: PAST MEDICAL HISTORY Diagnosis Date Advance directive discussed with patient 04/08/2023 Discussed 03/2023: Up to date Amaurosis fugax 10/29/2017 TIA; right visual disturbance 06/2017 Arthritis tendonitis, arthritis 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 Cataract Colon polyp 2011 Controlled type 2 diabetes [...] Female pattern hair loss Foot callus 05/26/2021 Gastroesophageal reflux disease without esophagitis 10/18/2024 History of colon polyps History of depression when History of hyperparathyroidism History of transient ischemic attack (TIA) 10/29/2017 06/29/2017 - R homonomous hemianopia with aphasia for couple hours - negative MRI/A following day Irritable bowel syndrome with diarrhea 05/26/2021 Living will on file at physician's office 04/08/2023 DPA: Carmella () Meniere disease, right 10/29/2017 Mixed hyperlipidemia 05/31/2009 statin intolerance 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 Has been on provigil for 5-10 yrs Obstructive sleep apnea on CPAP Sibilia Other skin changes 09/26/2021 Seeing derm Pancreatic insufficiency (HCC) 04/08/[address] Alcantar Psoriasis RLS (restless legs syndrome) 02/22/[address] Aysha Laurent with ocular symptoms S/P angioplasty with stent 01/09/2017 stents to mid and proximal left anterior descending Art, and angio of ostium of #2 diagonal Scalp itch Seasonal allergies Dr Pompa Type 2 diabetes mellitus with hyperlipidemia ([facility]) 04/17/2024 Vitamin D deficiency 2013 Well adult exam 01/16/2016 Last done: 09/08/2018 Surgical History: PAST SURGICAL HISTORY Procedure Laterality Date 2D ECHO (EXEP) 06/30/2017 EF=65%, trivial CT, TI and 1+ PI Unchanged from 04/2017 2D ECHO (EXEP) 05/14/2021 EF=60%, 1+ TI, trival CT, AI, PI 2D ECHO (EXEP) 09/16/2021 EF=60%, [...] PAST SURGICAL HISTORY OF 10/2006 left foot surge (more content not included)... [facility] 02-16-2025 History of Present illness Narrative [facility] Follow up note Patient referred by: Ori Lord DO (Urology) History of Present Illness: Ms. Dom Avila is a 68 year old female coming today for follow up evaluation of adrenal nodule. She is following after labs checked for functionality of nodule Initial visit 07/11/24 LV 11/03/24 History in brief, She was seeing urology for UTIs, which first started 1-1.5 years ago. She has had atleast 2 or 3 within 1 year. She thinks she is not having any UTIs since last fall Patient Also described the following: Lost weight due to low appetite Has palpitations intermittently and was diagnosed to have PVCs Denied, Skin stretch benton, easy bruising, excess hair growth over face/chin/chest/or abdomen, voice hoarseness, difficulty raising arms overhead, difficulty getting up from a seated position Headache, Flushing, sweating, Chest pain, Tremors Episodes of Headache, Sweating, palpitations or tremor: No Previous use of Steroids, oral, inhalers, injections: short term use Interval history: 02/16/2025: Patient reports starting on amlodipine 5 mg daily recently Denied any extra salt intake than that in the food naturally 24 hr urine labs done, after an abnormal DST and is normal Past Medical History: PAST MEDICAL HISTORY Diagnosis Date Advance directive discussed with patient 04/08/2023 Discussed 03/2023: Up to date Amaurosis fugax 10/29/2017 TIA; right visual disturbance 06/2017 Arthritis tendonitis, arthritis 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 Cataract Colon polyp 2011 Controlled type 2 diabetes [...] Female pattern hair loss Foot callus 05/26/2021 Gastroesophageal reflux disease without esophagitis 10/18/2024 History of colon polyps History of depression when History of hyperparathyroidism History of transient ischemic attack (TIA) 10/29/2017 06/29/2017 - R homonomous hemianopia with aphasia for couple hours - negative MRI/A following day Irritable bowel syndrome with diarrhea 05/26/2021 Living will on file at physician's office 04/08/2023 DPA: Carmella () Meniere disease, right 10/29/2017 Mixed hyperlipidemia 05/31/2009 statin intolerance Narcolepsy without cataplexy ([facility]) 01/16/2016 Especially with long drives. Has been on provigil for 5-10 yrs Obstructive sleep apnea on CPAP Sibilia Other skin changes 09/26/2021 Seeing derm Pancreatic insufficiency (HCC) 04/08/[address] Ortiz [place] RLS (restless legs syndrome) 02/22/[address] Aysha Laurent with ocular symptoms S/P angioplasty with stent 01/09/2017 stents to mid and proximal left anterior descending Art, and angio of ostium of #2 diagonal Scalp itch Seasonal allergies Dr Pompa Type 2 diabetes mellitus with hyperlipidemia ([facility]) 04/17/2024 Vitamin D deficiency 2013 Well adult exam 01/16/2016 Last done: 09/08/2018 Surgical History: PAST SURGICAL HISTORY Procedure Laterality Date 2D ECHO (EXEP) 06/30/2017 EF=65%, trivial CT, TI and 1+ PI Unchanged from 04/2017 2D ECHO (EXEP) 05/14/2021 EF=60%, 1+ TI, trival CT, AI, PI 2D ECHO (EXEP) 09/16/2021 EF=60%, [...] LEDA for benign fibroid, ovaries intact Family Medical History: FAMILY HISTORY Problem Relation Age of Onset other (Pancreatic cancer) Mother Coronary Artery Disease Father [address] @ 25. CABG Diabetes Father Diabetes Paternal Grandmother Diabetes Maternal Grandfather other (Lung cancer) Brother other (suicide) Son may of been depression Social History: Social History Tobacco Use Smoking status: Former Current packs/day: 0.00 Average packs/day: 1.5 packs/day for 3.0 years (4.5 ttl pk-yrs) Types: Cigarettes Start date: 11/08/1991 Quit date: 11/08/1994 Years since quittin.2 Smokeless tobacco: Never Tobacco comments: smoked 3 years in mid 90s Vaping Use Vaping status: Never Used Substance Use Topics Alcohol use: No Drug use: No Allergies: ALLERGIES Allergen Reactions Brilinta [Ticagrelo* Shortness of Breath Crestor [Rosuvastat* Myalgia Keflex [Cephalexin] Other: See Comments facial flushing Lipitor [Atorvastat* Other: See Comments myalgia Lovastatin Other: See Comments myalgia Hughes [Hydrocodone-* Itching Current medications: Current Outpatient Medications Medication Sig amLODIPine (NORVASC) 5 mg tablet Take 1 tablet by mouth once daily. dicyclomine (BENTYL) 20 mg tablet three times a day. tamoxifen (NOLVADEX) 20 mg tablet TAKE 1 TABLET ONE TIME DAILY omeprazole (PRILOSEC) 40 mg capsule Take 1 capsule by mouth once daily. ezetimibe (ZETIA) 10 mg tablet Take 1 tablet by mouth once daily. pioglitazone (ACTOS) 15 mg tablet Take 1 tablet by mouth once daily. OTC NUTRITIONAL SUPPLEMENT vitamin coenzyme Q10 (COENZYME Q-10) 100 mg cap capsule Ubidecarenone Active 100 MG DAILY August 23, 2019 3:27pm okimym-vourtwdx-qhkusjr (CREON 36) 36,000-114,000- 180,000 unit delayed release capsule .COMPLEX lisinopril (ZESTRIL) 40 mg tablet Take 40 mg by mouth once daily. estradiol (ESTRACE) 0.01 % (0.1 mg/gram) vaginal cream Use 1 g vaginally as directed. Insert 1 gm vaginally every night x 14 nights then insert 1 gm vaginally twice weekly Calcium Citrate-Vitamin D3 (CITRACAL+D) 315 mg-6.25 mcg (250 unit) tab Take 2 tablets by mouth once daily. metFORMIN (GLUCOPHAGE) 500 mg tablet Take 2 tablets by mouth twice daily with meals. ammonium lactate (LAC-HYDRIN) 12 % lotion Apply 1 application to affected area twice daily as needed. Clobetasol Propionate 0.05 % gel Apply 1 application to affected area as needed. acetaminophen (TYLENOL) 500 mg tablet Take 1,000 mg by mouth every 8 hours as needed. nitroglycerin sublingual (NITROQUICK) 0.4 mg SL tablet Dissolve 1 tablet under the tongue every 5 minutes as needed for Chest Pain. ketoconazole (NIZORAL) 2 % shampoo Apply 1 application to affected area once daily as needed. montelukast (SINGULAIR) 10 mg tablet Take 10 mg by mouth daily at bedtime. metoprolol succinate ER (TOPROL XL) 25 mg 24 hr tablet Take 1 tablet by mouth twice daily. Per Dr. Gomez LACTOBACILLUS ACIDOPHILUS (PROBIOTIC ORAL) Take 1 tablet by mouth once daily. CPAP dexAMETHasone (DECADRON) 1 mg tablet Take the tablet at 11 pm and go for labs the next morning on fasting at 8 am (Patient not taking: Reported on 11/03/2024) No current facility-administered medications for this visit. Review of Systems: Pertinent as per HPI Physical exam: BP 140/70 (BP Site: Right Arm, BP Position: Sitting, BP Cuff Size: Regular Adult) Pulse 67 Temp 36.2 C (97.1 F) (Temporal Artery) Wt 65.3 kg (144 lb) SpO2 98% BMI 25.59 kg/m General Appearance: Well appearing, alert, in no acute distress, well-hydrated, well nourished, thin to moderately built Eyes: Extraocular movements are intact. Neck: Supple, no adenopathy; thyroid symmetric, normal size, no bruits. Lungs: unlabored breathing on room air Heart: RRR Extremities: No deformities, edema, skin discoloration, clubbing or cyanosis. Peripheral Pulses: Normal. Neurologic: Gait normal. Previous laboratory results: Latest Ref Rng 04/17/2024 Protein, Total 6.3 - 8.0 g/dL 6.3 Albumin 3.9 - 4.9 g/dL 3.8 (L) Calcium 8.5 - 10.2 mg/dL 8.9 Bilirubin, Total 0.2 - 1.3 mg/dL 0.2 Alkaline Phosphatase 34 - 123 U/L 37 AST 13 - 35 U/L 20 ALT 7 - 38 U/L 11 Glucose 74 - 99 mg/dL 119 (H) BUN 7 - 21 mg/dL 11 Creatinine 0.58 - 0.96 mg/dL 0.78 Sodium 136 - 144 mmol/L 142 Potassium 3.7 - 5.1 mmol/L 4.1 Chloride 98 - 107 mmol/L 105 CO2 22 - 30 mmol/L 26 Anion Gap 8 - 15 mmol/L 11 eGFR >=60 mL/min/1.73m 84 Latest Ref Rng 10/02/2024 8.18 am 10/03/2024 8.11 am 11/07/2024 9.27 am Hours Collected hr 24 Total Volume mL 1950 Creatinine, Urine Per Volume mg/dL 41 Creatinine, Urine Per 24H 500 - 1400 mg/d 800 Cortisol ug/g Wall Mirror Department Supervisor, Ur (UFRCRT) ug/g SENIOR PORTFOLIO ANALYST 16.32 Free Cortisol ug/L, Urine ug/L 6.69 Free Cortisol ug/day, Urine <=45.0 ug/d 13.0 Free Cortisol UR, Interpretation See Note Aldosterone 0.0 - <35.4 ng/dL 6.1 Direct Renin 3.6 - 81.6 pg/mL 5.2 Aldosterone/Renin Ratio <3.8 1.2 Patient Upright or Supine Upright Creatinine 24 hr Ur 0.800 - 1.800 g/24 hr 0.786 (L) Period hr 24 Urine Volume 24 hour mL 1,950 Potassium 3.7 - 5.1 mmol/L 3.8 DHEA-S <=246.9 ug/dL 44.2 ACTH 7.2 - 63.3 pg/mL 25.6 28.4 Dexamethasone ng/dL <50.0 Cortisol,ON DEX,Post <1.8 ug/dL 2.0 (H) Legend: (H) High (L) Low Imaging: CT abdomen/pelvis: 11/25/2022: RESULT: Liver: Stable subcentimeter hypodensity within the left lobe 2 small fully characterize, most likely benign etiology. No further focal abnormality is seen. Hepatic steatosis. Biliary: No bile duct dilation. Gallbladder is absent. Spleen: No mass. No splenomegaly. Pancreas: No mass or duct dilation. Adrenals: Right adrenal gland is unremarkable. On coronal images, for example 5:78, there appears to be a hypodense nodule extending from the adrenal gland the overall size measuring 2.4 x 1.5 cm. Correlation with previous abdominal CT demonstrates lesion to be stable, adenoma considered as a possible etiology. Kidneys: Stable 1 cm low-attenuation lesion in the right lower pole, most consistent with simple cysts. Smaller hypodense lesion within the medial midpole of the left kidney, too small to fully characterize, benign etiology suspected. No hydronephrosis or renal calculus bilaterally. GI tract: No dilation or wall thickening. Normal appendix. Lymph nodes: No abdominal or pelvic lymphadenopathy. Mesentery/Peritoneum: No ascites or mass. Retroperitoneum: No mass. Vasculature: - Abdominal aorta and iliac arteries: No aneurysm. - Celiac and SMA: Patent without stenosis. - Portal venous system (SMV, splenic vein, portal vein and branches): Patent. - Hepatic veins: Patent. Pelvis: No mass, ascites or fluid collection. Prior hysterectomy Bones/Soft Tissues: No significant finding. Lower thorax: Unremarkable. Jewish Thought Professor (topogram) images: No additional findings. IMPRESSION: Stable hypodensity within the left hepatic lobe, most consistent with benign etiology. Hepatic steatosis. Probable small cysts of the kidneys. There is a hypodensity which appears to extend from the left adrenal gland, stable, possible etiologies include adenoma. Previous Adrenal CT: CT abdomen/pelvis w IV contrast : 09/2022 with no adrenal nodules - reviewed images also do not have a similar hypodensity seen on the CT in 11/2022 CT abdomen 06/2024 with reportedly normal B/L adrenal nodules CT adrenal w/wo IV contrast: 08/15/24 COMPARISON: CT abdomen and pelvis 11/25/2022 and prior RESULT: Adrenal glands: Right adrenal gland: No nodules, masses or thickening. Left adrenal gland: A 0.7 x 0.6 x 1.0 cm hypoattenuating nodule of the left adrenal gland demonstrates precontrast attenuation of adenoma (6 HU), no significant interval change compared to 05/2019 also favoring benign process. Abdomen: Liver: Unremarkable. Biliary System: Gallbladder is underdistended. Spleen: No splenomegaly. Punctate calcifications likely granulomas. Pancreas: No pancreatic duct dilation. Otherwise unremarkable. Kidneys: No stones or hydronephrosis. Stable 1.1 cm cortical cyst in the right lateral interpolar region. Lymph Nodes: No abdominal lymphadenopathy. Mesentery/Peritoneum: Minimal fat stranding in the mesentery of the left flank adjacent small bowel but no focal lesion or obstruction. No ascites or mass. GI Tract: Imaged segments are unremarkable. Vasculature: No aortic aneurysm, no significant atherosclerotic plaque Lower thorax and bones: No significant findings. Jewish Thought Professor (topogram) images: No additional findings. IMPRESSION: 1. Stable 1.0 cm left adrenal adenoma. 2. Minimal mesenteric fat stranding in the left flank, nonspecific. ASSESSMENT/PLAN: Left adrenal nodule/incidentaloma CT adrenal shows stable 1 cm left adrenal adenoma. Given characteristics of the nodule, it appears to be benign, also will not test for Pheo ARR with no concerns. Cortisol on DST is elevated (patient reports taking medication on the night before the test although labs not done as instructed) We did 24 hr urine cortisol which was normal and ACTH in am (although later than indicated) is normal, not consistent with adrenal causes of excess cortisol production We discussed doing a 2 day low dose DST - instructions given If abnormal, will consider 8 mg DST, saliva cortisol or combination =, and imaging as needed Briefly discussed treatment for functional nodule has surgery as the first choice and hence more testing for confirmation she is okay with surgery if needed She voiced understanding of the plan. Follow up in 4 weeks Medical Decision Making: Problems: Moderate: New problem with uncertain prognosis Data: Unique test result(s) reviewed: 3+ Unique test(s) ordered: 2 Medical Decision Making Level: 4 - Moderate SIGNATURE: Alexa Matute MD DATE of SERVICE: February 16, 2025 TIME of SERVICE: 9:00 AM documented in this encounter [facility] 01-30-2025 History of Present illness Narrative Pt chart reviewed as part of population health initiative focused on statin use in patients with diabetes (DM) or cardiovascular disease (CVD). Dom Avila is identified through data from [employer] (insurer) as a potential candidate for statin therapy with no prescriptions claims processed for a statin medication in this calendar year. Chart Review The following case components were reviewed for current or historic statin use: Confirmed diabetes and or CVD: Yes Current/Active med list includes a statin: No IF NO, reason identified (contraindication, intolerance, exclusion, etc.): Crestor - myalgia, Lipitor - myalgia, lovastatin - myalgia. Patient is currently on Zetia. 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 Encounter for Medicare annual wellness exam 04/08/2023 Medicare Part B: 07/09/2022 Last done: 04/08/2023 Essential hypertension 01/16/2016 Female pattern hair loss Foot callus 05/26/2021 Gastroesophageal reflux disease without esophagitis 10/18/2024 History of colon polyps History of depression when History of hyperparathyroidism History of transient ischemic attack (TIA) 10/29/2017 06/29/2017 - R homonomous hemianopia with aphasia for couple hours - negative MRI/A following day Irritable bowel syndrome with diarrhea 05/26/2021 Living will on file at physician's office 04/08/2023 DPA: Carmella () Meniere disease, right 10/29/2017 Mixed hyperlipidemia 05/31/2009 statin intolerance Narcolepsy without cataplexy 01/16/2016 Especially with long drives. Has been on provigil for 5-10 yrs Obstructive sleep apnea on CPAP Sibilia Other skin changes 09/26/2021 Seeing derm Pancreatic insufficiency 04/08/[address] Alcantar Psoriasis RLS (restless legs syndrome) 02/22/[address] Aysha Laurent with ocular symptoms S/P angioplasty with stent 01/09/2017 stents to mid and proximal left anterior descending Art, and angio of ostium of #2 diagonal Scalp itch Seasonal allergies Dr Pompa Type 2 diabetes mellitus with hyperlipidemia ([facility]) ([facility]) 04/17/2024 Vitamin D deficiency 2013 Well adult exam 01/16/2016 Last done: 09/08/2018 Cholesterol, Total (mg/dL) Date Value 09/01/2018 240 Total Cholesterol, Nonfasting (mg/dL) Date Value 10/14/2024 202 09/16/2021 196 HDL Cholesterol (mg/dL) Date Value 09/01/2018 34 HDL Cholesterol, Nonfasting (mg/dL) Date Value 10/14/2024 45 09/16/2021 30 LDL Cholesterol (mg/dL) Date Value 09/01/2018 178 LDL Cholesterol, Nonfasting (mg/dL) Date Value 10/14/2024 138 09/16/2021 136 Triglyceride (mg/dL) Date Value 09/01/2018 138 Triglycerides, Nonfasting (mg/dL) Date Value 10/14/2024 94 09/16/2021 150 Outcome of review: Intolerance/Allergy Routing message to Endo to see if they can place exclusion codes at next visit (02/09/25) to see if patient can be removed for measure. Valarie Russell, Pharm.D, BCACP Clinical Pharmacist documented in this encounter [facility] 01-30-2025 Note HNO ID: [id number] Author: VALARIE RUSSELL RPh Service: ? Author Type: Pharmacist Type: Progress Notes Filed: 01/30/2025 15:41 Note Text: Pt chart reviewed as part of population health initiative focused on statin use in patients with diabetes (DM) or cardiovascular disease (CVD). Dom Avila is identified through data from [employer] (insurer) as a potential candidate for statin therapy with no prescriptions claims processed for a statin medication in this calendar year. Chart Review The following case components were reviewed for current or historic statin use: Confirmed diabetes and or CVD: Yes Current/Active med list includes a statin: No IF NO, reason identified (contraindication, intolerance, exclusion, etc.): Crestor - myalgia, Lipitor - myalgia, lovastatin - myalgia. Patient is currently on Zetia. 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 Cataract Colon polyp 2011 Controlled type 2 diabetes [...] Female pattern hair loss Foot callus 05/26/2021 Gastroesophageal reflux disease without esophagitis 10/18/2024 History of colon polyps History of depression when History of hyperparathyroidism History of transient ischemic attack (TIA) 10/29/2017 06/29/2017 - R homonomous hemianopia with aphasia for couple hours - negative MRI/A following day Irritable bowel syndrome with diarrhea 05/26/2021 Living will on file at physician's office 04/08/2023 DPA: Carmella () Meniere disease, right 10/29/2017 Mixed hyperlipidemia 05/31/2009 statin intolerance Narcolepsy without cataplexy 01/16/2016 Especially with long drives. Has been on provigil for 5-10 yrs Obstructive sleep apnea on CPAP Sibilia Other skin changes 09/26/2021 Seeing derm Pancreatic insufficiency 04/08/[address] Alcantar Psoriasis RLS (restless legs syndrome) 02/22/[address] Aysha Laurent with ocular symptoms S/P angioplasty with stent 01/09/2017 stents to mid and proximal left anterior descending Art, and angio of ostium of #2 diagonal Scalp itch Seasonal allergies Dr Pompa Type 2 diabetes mellitus with hyperlipidemia (HCC) (HCC) 04/17/2024 Vitamin D deficiency 2013 Well adult exam 01/16/2016 Last done: 09/08/2018 Cholesterol, Total (mg/dL) Date Value 09/01/2018 240 Total Cholesterol, Nonfasting (mg/dL) Date Value 10/14/2024 202 09/16/2021 196 HDL Cholesterol (mg/dL) Date Value 09/01/2018 34 HDL Cholesterol, Nonfasting (mg/dL) Date Value 10/14/2024 45 09/16/2021 30 LDL Cholesterol (mg/dL) Date Value 09/01/2018 178 LDL Cholesterol, Nonfasting (mg/dL) Date Value 10/14/2024 138 09/16/2021 136 Triglyceride (mg/dL) Date Value 09/01/2018 138 Triglycerides, Nonfasting (mg/dL) Date Value 10/14/2024 94 09/16/2021 150 ---- ---- Outcome of review: Intolerance/Allergy Routing message to Endo to see if they can place exclusion codes at next visit (02/09/25) to see if patient can be removed for measure. Valarie Russell, Pharm.D, [facility] Clinical Pharmacist [facility] 01-30-2025 Note Patient Outreach (PM FBEA) ---- DOM AVILA ([id number]) 1955 F Date Time Provider Department 01/30/25 VALARIE RUSSELL [facility] During your visit today, we recorded the following information about you: Valarie Russell [facility] 01/30/2025 3:41 PM Signed Pt chart reviewed as part of population health initiative focused on statin use in patients with diabetes (DM) or cardiovascular disease (CVD). Dom Avila is identified through data from [employer] (insurer) as a potential candidate for statin therapy with no prescriptions claims processed for a statin medication in this calendar year. Chart Review The following case components were reviewed for current or historic statin use: Confirmed diabetes and or CVD: Yes Current/Active med list includes a statin: No IF NO, reason identified (contraindication, intolerance, exclusion, etc.): Crestor - myalgia, Lipitor - myalgia, lovastatin - myalgia. Patient is currently on Zetia. 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 Encounter for Medicare annual wellness exam 04/08/2023 Medicare Part B: 07/09/2022 Last done: 04/08/2023 Essential hypertension 01/16/2016 Female pattern hair loss Foot callus 05/26/2021 Gastroesophageal reflux disease without esophagitis 10/18/2024 History of colon polyps History of depression when History of hyperparathyroidism History of transient ischemic attack (TIA) 10/29/2017 06/29/2017 - R homonomous hemianopia with aphasia for couple hours - negative MRI/A following day Irritable bowel syndrome with diarrhea 05/26/2021 Living will on file at physician's office 04/08/2023 DPA: Carmella () Meniere disease, right 10/29/2017 Mixed hyperlipidemia 05/31/2009 statin intolerance Narcolepsy without cataplexy 01/16/2016 Especially with long drives. Has been on provigil for 5-10 yrs Obstructive sleep apnea on CPAP Sibilia Other skin changes 09/26/2021 Seeing derm Pancreatic insufficiency 04/08/[address] Alcantar Psoriasis RLS (restless legs syndrome) 02/22/[address] Aysha Laurent with ocular symptoms S/P angioplasty with stent 01/09/2017 stents to mid and proximal left anterior descending Art, and angio of ostium of #2 diagonal Scalp itch Seasonal allergies Dr Pompa Type 2 diabetes mellitus with hyperlipidemia ([facility]) ([facility]) 04/17/2024 Vitamin D deficiency 2013 Well adult exam 01/16/2016 Last done: 09/08/2018 Cholesterol, Total (mg/dL) Date Value 09/01/2018 240 Total Cholesterol, Nonfasting (mg/dL) Date Value 10/14/2024 202 09/16/2021 196 HDL Cholesterol (mg/dL) Date Value 09/01/2018 34 HDL Cholesterol, Nonfasting (mg/dL) Date Value 10/14/2024 45 09/16/2021 30 LDL Cholesterol (mg/dL) Date Value 09/01/2018 178 LDL Cholesterol, Nonfasting (mg/dL) Date Value 10/14/2024 138 09/16/2021 136 Triglyceride (mg/dL) Date Value 09/01/2018 138 Triglycerides, Nonfasting (mg/dL) Date Value 10/14/2024 94 09/16/2021 150 ---- ---- Outcome of review: Intolerance/Allergy Routing message to Endo to see if they can place exclusion codes at next visit (02/09/25) to see if patient can be removed for measure. Valarie Russell Pharm.D, [facility] Clinical Pharmacist Allergies As of Date: 01/30/2025 Noted Allergy Reaction BRILINTA (TICAGRELOR) 06/28/2017 12 - Shortness of Breath CRESTOR (ROSUVASTATIN) 04/10/2020 17 - Myalgia KEFLEX (CEPHALEXIN) 02/02/2006 14 - Other: See Comments Comments: facial flushing LIPITOR (ATORVASTATIN) 07/21/2013 14 - Other: See Comments Comments: myalgia LOVASTATIN 07/21/2013 14 - Other: See Comments Comments: myalgia NORCO (HYDROCODONE-ACETAMINOPHEN) 10/29 (more content not included)... [facility] 01-01-2025 Telephone encounter Note Nirmatrelvir/Ritonavir (Paxlovid) Considerations Paxlovid is FDA-approved for treatment of mild to moderate COVID-19 in adults who are at high risk for progression to severe COVID-19. Consider use of Paxlovid in the following examples of high risk patients (list is not all inclusive): Age over 65 years Cardiovascular and cerebrovascular disease Chronic disease state (kidney, liver, lung) Diabetes (type 1 or type 2) Immunocompromised state (cancer, solid organ or blood stem cell transplant, HIV) Obesity Paxlovid warnings include serious drug interactions (co-administration with drugs highly dependent on CYP3A for clearance), hypersensitivity reactions, hepatotoxicity, and risk of HIV-1 resistance development. Francine Madrid APRN.CNP January 01, 2025 11:07 AM [facility] 01-01-2025 Instructions Francine Madrid APRN.CNP - 01/01/2025 11:09 AM EST Images from the original note were not included. FACT SHEET FOR PATIENTS, PARENTS, AND CAREGIVERS EMERGENCY USE AUTHORIZATION (EUA) OF PAXLOVID FOR CORONAVIRUS DISEASE 2019 (COVID-19) You are being given this Fact Sheet because your healthcare provider believes it is necessary to provide you with PAXLOVID for the treatment of ezay-yu-efrduajx coronavirus disease (COVID-19) caused by the SARS-CoV-2 virus. This Fact Sheet contains information to help you understand the risks and benefits of taking the PAXLOVID you may receive. This Fact Sheet also contains information about how to take PAXLOVID and how to report side effects or problems with the appearance or packaging of PAXLOVID. The U.S. Food and Drug Administration (FDA) has issued an Emergency Use Authorization (EUA) to make PAXLOVID available for the treatment of jsra-hi-povsmchj COVID-19 in adults and children 12 years of age and older weighing at least 88 pounds (40 kg) who are at high risk for progression to severe COVID-19, including hospitalization or (for more details about an EUA please see What is an Emergency Use Authorization? at the end of this document). Read this Fact Sheet for information about PAXLOVID. Talk to your healthcare provider about your options or if you have any questions. It is your choice to take PAXLOVID. What is COVID-19? COVID-19 is caused by a virus called a coronavirus. You can get COVID-19 through close contact with another person who has the virus. COVID-19 illnesses have ranged from very ytir-ey-gvkegq, including illness resulting in . While information [...] for COVID-19. What is PAXLOVID? PAXLOVID is a medicine that is available under EUA for the treatment of uxzj-ae-hmnuxfpf COVID-19 in adults and children 12 years of age and older weighing at least 88 pounds (40 kg) who are at high risk for progression to severe COVID-19, including hospitalization or . Although PAXLOVID is FDA-approved for the treatment of COVID-19 in certain adults (see section What other treatment choices are there?), PAXLOVID use in children remains investigational because it is still being studied. There is limited information about the safety and effectiveness of using PAXLOVID to treat children with gmst-iq-yszvqjiq COVID-19. What is the most important information I should know about PAXLOVID? PAXLOVID can interact with other medicines causing severe or life-threatening side effects or . It is important to know the medicines that should not be taken with PAXLOVID. Do not take PAXLOVID if: you are taking any of the following medicines: o alfuzosin o amiodarone o apalutamide o carbamazepine o colchicine o dihydroergotamine o dronedarone o eletriptan o eplerenone o ergotamine o finerenone o flecainide o flibanserin o ivabradine o lomitapide o lovastatin o lumacaftor/ivacaftor o lurasidone o methylergonovine o midazolam (oral) o naloxegol o phenobarbital o phenytoin o pimozide o primidone o propafenone o quinidine o ranolazine o rifampin o rifapentine o Epi s Wort (hypericum perforatum) o sildenafil (Revatio ) for pulmonary arterial hypertension o silodosin o simvastatin o tolvaptan o triazolam o ubrogepant o voclosporin These are not the only medicines that may cause serious or life-threatening side effects if taken with PAXLOVID. PAXLOVID may increase or decrease the levels of multiple other medicines. It is very important to tell your healthcare provider about all of the medicines you are taking because additional laboratory tests or changes in the dose of your other medicines may be necessary during treatment with PAXLOVID. Your healthcare provider may also tell you about specific symptoms to watch out for that may indicate that you need to stop or decrease the dose of some of your other medicines. you are allergic to nirmatrelvir, ritonavir, or any of the ingredients in PAXLOVID. See the end of this leaflet for a complete list of ingredients in PAXLOVID. See What are the important possible side effects of PAXLOVID? for signs and symptoms of allergic reactions. What should I tell my healthcare provider before I take PAXLOVID? Tell your healthcare provider if you: have kidney problems. You may need a different dose of PAXLOVID. have liver problems, including hepatitis. have Human Immunodeficiency Virus 1 (HIV-1) infection. PAXLOVID may lead to some HIV-1 medicines not working as well in the future. are or plan to become . It is not known if PAXLOVID can harm your unborn baby. Tell your healthcare provider right away if you are or if you become . are or plan to breastfeed. It is not known if PAXLOVID can pass into your breast milk. Talk to your healthcare provider about the best way to feed your baby during treatment with PAXLOVID. Some medicines may interact with PAXLOVID and may cause serious side effects. Tell your healthcare provider about all the medicines you take, including prescription and cwef-mhs-ossgknz medicines, vitamins, and herbal supplements. Your healthcare provider can tell you if it is safe to take PAXLOVID with other medicines. You can ask your healthcare provider or pharmacist for a list of medicines that interact with PAXLOVID. Do not start taking a new medicine without telling your healthcare provider. Tell your healthcare provider if you are taking combined control (hormonal contraceptive). PAXLOVID may affect how your hormonal contraceptives work. Females who are able to become should use another effective alternative form of contraception or an additional barrier method of contraception during treatment with PAXLOVID. Talk to your healthcare provider if you have any questions about contraceptive methods that might be right for you. How do I take PAXLOVID? Take PAXLOVID exactly as your healthcare provider tells you to take it. PAXLOVID consists of 2 medicines: nirmatrelvir tablets and ritonavir tablets. The 2 medicines are taken together 2 times each day for 5 days. Nirmatrelvir is an oval, pink tablet. Ritonavir is a white or off-white tablet. PAXLOVID is available in 2 Dose Packs (see Figures A and B below). Your healthcare provider will prescribe the PAXLOVID Dose Pack that is right for you. If you have kidney disease, your healthcare provider may prescribe a lower dose (see Figure B). Talk to your healthcare provider to make sure you receive the correct Dose Pack. Do not remove your PAXLOVID tablets from the blister card before you are ready to take your dose. Take your first dose of PAXLOVID in the morning or evening, depending on when you cotton picker your prescription, or as your healthcare provider tells you to. Swallow the tablets whole. Do not chew, [...] right away. If you are taking a ritonavir- or cobicistat-containing medicine to treat hepatitis C or HIV-1 infection, you should continue to take your medicine as prescribed by your healthcare provider. Talk to your healthcare provider if you do not feel better or if you feel worse after 5 days. What are the important possible side effects of PAXLOVID? PAXLOVID may cause serious side effects, including: Allergic reactions, including severe allergic reactions (anaphylaxis) have happened during treatment with PAXLOVID. Stop taking PAXLOVID and get medical help right away if you get any of the following symptoms of an allergic reaction: o skin rash, hives, blisters or peeling skin o painful sores or ulcers in the mouth, nose, throat or genital area o swelling of the mouth, lips, tongue or face o trouble swallowing or breathing o throat tightness o hoarseness Liver Problems. Tell your healthcare provider right away if you get any of the following signs and symptoms of liver problems during treatment with PAXLOVID: o loss of appetite o yellowing of your skin and the white of eyes o dark-colored urine o pale colored stools o itchy skin o stomach-area (abdominal) pain The most common side effects of PAXLOVID include: altered sense of taste and diarrhea. Other possible side effects include: headache vomiting abdominal pain nausea high blood pressure feeling generally unwell These are not all the possible side effects of PAXLOVID. For more information, ask your healthcare provider or pharmacist. What other treatment choices are there? PAXLOVID is FDA-approved for the treatment of bdrd-da-dnflumgk COVID-19 in certain adults; however, there are not sufficient quantities of the approved presentations (i.e., dose packs) of PAXLOVID at this time. This EUA continues to authorize the emergency use of PAXLOVID for the approved patient population to ensure continued access in order to meet the public health need. VEKLURY (remdesivir) is FDA-approved for the treatment of nujf-pv-wmwuvwsb COVID-19 in certain adults and children. Talk with your healthcare provider to see if VEKLURY is appropriate for you. For information on the emergency use of other medicines that are authorized by FDA to treat people with COVID-19, please go to https://www.fda.gov/emergency-prepared hykq-qlk-czgjnaug/nzt-rtphv-nljajebwsm -bvv-nxnogt-gscstfhjs/dogkonrrv-gfb-zt thorization. Your healthcare provider may talk with you about clinical trials for which you may be eligible. It is your choice to be treated or not to be treated with PAXLOVID. Should you decide not to receive it or for your child not to receive it, it will not change your standard medical care. What if I am or ? There is limited experience treating women or mothers with PAXLOVID. For a mother and unborn baby, the benefit of taking PAXLOVID may be greater than the risk from the treatment. If you are , discuss your options and specific situation with your healthcare provider. If you are , discuss your options and specific situation with your healthcare provider. How do I report side effects or problems with the appearance or packaging of PAXLOVID? Contact your healthcare provider if you have any side effects that bother you or do not go away. Report side effects or problems with the appearance or packaging of PAXLOVID (see Figures A and B above for examples of PAXLOVID Dose Packs) to FDA MedWatch at www.fda.gov/medwatch or call 3-721-QVY-0107 or you can report side effects to [employer]. at the contact information provided below. How should I store PAXLOVID? Store PAXLOVID tablets at room temperature, between 68?F to 77?F (20?C to 25?C). Keep PAXLOVID and all medicines out of the reach of children. What if I have questions about the expiration date for my PAXLOVID? The FDA has extended the expiration date (shelf-life) for some lots of PAXLOVID. To find the extended expiration date, enter the lot number found on the side of carton or bottom of blister pack at this website: https://www.[employer].com/ or talk with your healthcare provider. Information on the authorized shelf-life extensions for PAXLOVID may also be found at https://www.fda.gov/emergency-prepared usii-tdo-hsgfgglt/dxl-eufbv-uwzyotmpil -orb-mgpkmc-vmdgytbur/expiration-datin g-extension. How can I learn more about COVID-19? Ask your healthcare provider. Visit https://www.cdc.gov/COVID19. Contact your local or state public health department. What is an Emergency Use Authorization (EUA)? The [place] FDA has made PAXLOVID available under an emergency access mechanism called an Emergency Use Authorization (EUA). The EUA is supported by a Manager Of Application Development of Health and Human Services ([facility]) declaration that circumstances exist to justify the emergency use of drugs and biological products during the COVID-19 pandemic. In issuing an EUA, the FDA has determined, among other things, [...] to allow for the product to be available under an EUA. The EUA for PAXLOVID is in effect for the duration of the COVID-19 declaration justifying emergency use of this product, unless the relevant EUA declaration is terminated or the EUA revoked (after which the products may no longer be used under the EUA). What are the ingredients in PAXLOVID? Active ingredient: nirmatrelvir and ritonavir Nirmatrelvir inactive ingredients: colloidal silicon dioxide, croscarmellose sodium, lactose monohydrate, microcrystalline cellulose, and sodium stearyl fumarate. Film-coating contains: hydroxy propyl methylcellulose, iron oxide red, polyethylene glycol, and titanium dioxide. Ritonavir inactive ingredients: anhydrous dibasic calcium phosphate, colloidal silicon dioxide, copovidone, sodium stearyl fumarate, and sorbitan monolaurate. The film coating may contain: colloidal anhydrous silica, colloidal silicon dioxide, hydroxypropyl cellulose, hypromellose, polyethylene glycol, polysorbate 80, talc, and titanium dioxide. Additional Information For general questions, visit the website or call the telephone number provided below. Website: www.[employer] Telephone number: (1-877-c19-PACK) Distributed by [employer] [place] [address] [id number] Revised: 03/2023 documented in this encounter [facility] 01-01-2025 Miscellaneous Notes Nirmatrelvir/Ritonavir (Paxlovid) Considerations Paxlovid is FDA-approved for treatment of mild to moderate COVID-19 in adults who are at high risk for progression to severe COVID-19. Consider use of Paxlovid in the following examples of high risk patients (list is not all inclusive): Age over 65 years Cardiovascular and cerebrovascular disease Chronic disease state (kidney, liver, lung) Diabetes (type 1 or type 2) Immunocompromised state (cancer, solid organ or blood stem cell transplant, HIV) Obesity Paxlovid warnings include serious drug interactions (co-administration with drugs highly dependent on CYP3A for clearance), hypersensitivity reactions, hepatotoxicity, and risk of HIV-1 resistance development. Francine Madrid APRN.[employer] January 01, 2025 11:07 AM Pt notified of results and provider message. Pt reports she would like a rx to be sent to [facility] in [place]. Pharmacy updated. Em Mahmood LPN Called and left message on patients voicemail to return call to the office and ask to speak with a triage nurse. Natalie Presley MA Please let patient know she has Covid. She is still in the window for treatment if she would like it but if she has mild symptoms and no shortness of breath I do not think it is needed. documented in this encounter [facility] 01-01-2025 Telephone encounter Note Pt notified of results and provider message. Pt reports she would like a rx to be sent to [facility] in [place]. Pharmacy updated. Em Mahmood LPN [facility] 01-01-2025 Telephone encounter Note Called and left message on patients voicemail to return call to the office and ask to speak with a triage nurse. Natalie Presley MA [facility] 01-01-2025 Telephone encounter Note Please let patient know she has Covid. She is still in the window for treatment if she would like it but if she has mild symptoms and no shortness of breath I do not think it is needed. [facility] 01-01-2025 Telephone encounter Note Prescription Refill Information The patient has been identified by name and date of : Yes Caregiver verified no other encounters exist for this prescription request: Yes Caregiver confirmed with patient/requestor that no other refills are due, in the near future, with this provider at this time: Yes The last office visit in the department: 09/14/2024 Does the patient have a future office visit with this provider/department: Yes Requested Prescriptions Pending Prescriptions Disp Refills tamoxifen (NOLVADEX) 20 mg tablet [Pharmacy Med Name: Tamoxifen Citrate Oral Tablet 20 MG] 3 Sig: TAKE 1 TABLET ONE TIME DAILY Monique Deshpande LPN January 01, 2025 7:29 AM [facility] 01-01-2025 Miscellaneous Notes Prescription Refill Information The patient has been identified by name and date of : Yes Caregiver verified no other encounters exist for this prescription request: Yes Caregiver confirmed with patient/requestor that no other refills are due, in the near future, with this provider at this time: Yes The last office visit in the department: 09/14/2024 Does the patient have a future office visit with this provider/department: Yes Requested Prescriptions Pending Prescriptions Disp Refills tamoxifen (NOLVADEX) 20 mg tablet [Pharmacy Med Name: Tamoxifen Citrate Oral Tablet 20 MG] 3 Sig: TAKE 1 TABLET ONE TIME DAILY Monique Deshpande LPN January 01, 2025 7:29 AM documented in this encounter [facility] 12-29-2024 Note SARS-COV-2 (AGENT OF COVID-19) RNA: Detected INFLUENZA A RNA: Not detected INFLUENZA B RNA: Not detected RESPIRATORY SYNCYTIAL VIRUS (RSV) RNA: Not detected [facility] Comment on above: Performed By: #### [id number] ####[facility]CLIA [id number] [address] [facility] 12-29-2024 Note HNO ID: [id number] Author: FRANCINE MADRID APRN.REPAIRER [employer] Service: ? Author Type: Nurse Practitioner Type: Progress Notes Filed: 12/29/2024 14:00 Note Text: Chief Complaint Patient presents with: Head Congestion Cough HPI Dom Avila is a 69 year old female who presents here today for Above Complaints.. Patient presents for head congestion and cough x 1 day. was recently ill and is also feeling ill. Denies fever, chills, SOB. Past medical history, appointments, medications, allergies reviewed. 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 Encounter for Medicare annual wellness exam 04/08/2023 Medicare Part B: 07/09/2022 Last done: 04/08/2023 Essential hypertension 01/16/2016 Female pattern hair loss Foot callus 05/26/2021 Gastroesophageal reflux disease without esophagitis 10/18/2024 History of colon polyps History of depression when History of hyperparathyroidism History of transient ischemic attack (TIA) 10/29/2017 06/29/2017 - R homonomous hemianopia with aphasia for couple hours - negative MRI/A following day Irritable bowel syndrome with diarrhea 05/26/2021 Living will on file at physician's office 04/08/2023 DPA: Carmella () Meniere disease, right 10/29/2017 Mixed hyperlipidemia 05/31/2009 statin intolerance Narcolepsy without cataplexy 01/16/2016 Especially with long drives. Has been on provigil for 5-10 yrs Obstructive sleep apnea on CPAP Sibilia Other skin changes 09/26/2021 Seeing derm Pancreatic insufficiency 04/08/[address] Alcantar Psoriasis RLS (restless legs syndrome) 02/22/[address] Aysha Laurent with ocular symptoms S/P angioplasty with stent 01/09/2017 stents to mid and proximal left anterior descending Art, and angio of ostium of #2 diagonal Scalp itch Seasonal allergies Dr Pompa Type 2 diabetes mellitus with hyperlipidemia ([facility]) ([facility]) 04/17/2024 Vitamin D deficiency 2013 Well adult exam 01/16/2016 Last done: 09/08/2018 Previous Surgical History PAST SURGICAL HISTORY Procedure Laterality Date 2D ECHO (EXEP) 06/30/2017 EF=65%, trivial CT, TI and 1+ PI Unchanged from 04/2017 2D ECHO (EXEP) 05/14/2021 EF=60%, 1+ TI, trival CT, AI, PI 2D ECHO (EXEP) 09/16/2021 EF=60%, [...] cancer) Mother Coronary Artery Disease Father 25 CT @ 25. CABG Diabetes Father Diabetes Paternal Grandmother Diabetes Maternal Grandfather other (Lung cancer) Brother other (suicide) Son may of been depression Patient Allergies ALLERGIES Allergen Reactions Brilinta [Ticagrelo* Shortness of Breath Crestor (more content not included)... [facility] 12-29-2024 History of Present illness Narrative Chief Complaint Patient presents with: Head Congestion Cough HPI Dom Vel Avila is a 69 year old female who presents here today for Above Complaints.. Patient presents for head congestion and cough x 1 day. was recently ill and is also feeling ill. Denies fever, chills, SOB. Past medical history, appointments, medications, allergies reviewed. 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 04/2021 Encounter for Medicare annual wellness exam 04/08/2023 Medicare Part B: 07/09/2022 Last done: 04/08/2023 Essential hypertension 01/16/2016 Female pattern hair loss Foot callus 05/26/2021 Gastroesophageal reflux disease without esophagitis 10/18/2024 History of colon polyps History of depression when History of hyperparathyroidism History of transient ischemic attack (TIA) 10/29/2017 06/29/2017 - R homonomous hemianopia with aphasia for couple hours - negative MRI/A following day Irritable bowel syndrome with diarrhea 05/26/2021 Living will on file at physician's office 04/08/2023 DPA: Carmella () Meniere disease, right 10/29/2017 Mixed hyperlipidemia 05/31/2009 statin intolerance Narcolepsy without cataplexy 01/16/2016 Especially with long drives. Has been on provigil for 5-10 yrs Obstructive sleep apnea on CPAP Sibilia Other skin changes 09/26/2021 Seeing derm Pancreatic insufficiency 04/08/[address] Alcantar Psoriasis RLS (restless legs syndrome) 02/22/[address] Aysha Laurent with ocular symptoms S/P angioplasty with stent 01/09/2017 stents to mid and proximal left anterior descending Art, and angio of ostium of #2 diagonal Scalp itch Seasonal allergies Dr Pompa Type 2 diabetes mellitus with hyperlipidemia (HCC) (HCC) 04/17/2024 Vitamin D deficiency 2012 Well adult exam 01/16/2016 Last done: 09/08/2018 Previous Surgical History PAST SURGICAL HISTORY Procedure Laterality Date 2D ECHO (EXEP) 06/30/2017 EF=65%, trivial CT, TI and 1+ PI Unchanged from 04/2017 2D ECHO (EXEP) 05/14/2021 EF=60%, 1+ TI, trival CT, AI, PI 2D ECHO (EXEP) 09/16/2021 EF=60%, [...] cancer) Mother Coronary Artery Disease Father 25 CT @ 25. CABG Diabetes Father Diabetes Paternal Grandmother Diabetes Maternal Grandfather other (Lung cancer) Brother other (suicide) Son may of been depression Patient Allergies ALLERGIES Allergen Reactions Brilinta [Ticagrelo* Shortness of Breath Crestor [Rosuvastat* Myalgia Keflex [Cephalexin] Other: See Comments facial flushing Lipitor [Atorvastat* Other: See Comments myalgia Lovastatin Other: See Comments myalgia Hughes [Hydrocodone-* Itching Current Medications Current Outpatient Medications on File Prior to Visit Medication Sig omeprazole (PRILOSEC) 40 mg capsule Take 1 capsule by mouth once daily. ezetimibe (ZETIA) 10 mg tablet Take 1 tablet by mouth once daily. pioglitazone (ACTOS) 15 mg tablet Take 1 tablet by mouth once daily. dexAMETHasone (DECADRON) 1 mg tablet Take the tablet at 11 pm and go for labs the next morning on fasting at 8 am (Patient not taking: Reported on 11/03/2024) OTC NUTRITIONAL SUPPLEMENT vitamin coenzyme Q10 (COENZYME Q-10) 100 mg cap capsule Ubidecarenone Active 100 MG DAILY August 23, 2019 3:27pm xaliwb-fcndzoad-rqulzpp (CREON 36) 36,000-114,000- 180,000 unit delayed release capsule .COMPLEX lisinopril (ZESTRIL) 40 mg tablet Take 40 mg by mouth once daily. estradiol (ESTRACE) 0.01 % (0.1 mg/gram) vaginal cream Use 1 g vaginally as directed. Insert 1 gm vaginally every night x 14 nights then insert 1 gm vaginally twice weekly tamoxifen (NOLVADEX) 20 mg tablet Take 1 tablet (20 mg) by mouth once daily. Calcium Citrate-Vitamin D3 (CITRACAL+D) 315 mg-6.25 mcg (250 unit) tab Take 2 tablets by mouth once daily. metFORMIN (GLUCOPHAGE) 500 mg tablet Take 2 tablets by mouth twice daily with meals. ammonium lactate (LAC-HYDRIN) 12 % lotion Apply 1 application to affected area twice daily as needed. Clobetasol Propionate 0.05 % gel Apply 1 application to affected area as needed. acetaminophen (TYLENOL) 500 mg tablet Take 1,000 mg by mouth every 8 hours as needed. nitroglycerin sublingual (NITROQUICK) 0.4 mg SL tablet Dissolve 1 tablet under the tongue every 5 minutes as needed for Chest Pain. ketoconazole (NIZORAL) 2 % shampoo Apply 1 application to affected area once daily as needed. montelukast (SINGULAIR) 10 mg tablet Take 10 mg by mouth daily at bedtime. metoprolol succinate ER (TOPROL XL) 25 mg 24 hr tablet Take 1 tablet by mouth twice daily. Per Dr. Gomez LACTOBACILLUS ACIDOPHILUS (PROBIOTIC ORAL) Take 1 tablet by mouth once daily. CPAP No current facility-administered medications on file prior to visit. Social History Social History Tobacco Use Smoking status: Former Current packs/day: 0.00 Average packs/day: 1.5 packs/day for 3.0 years (4.5 ttl pk-yrs) Types: Cigarettes Start date: 11/08/1991 Quit date: 11/08/1994 Years since quittin.1 Smokeless tobacco: Never Tobacco comments: smoked 3 years in mid 90s Vaping Use Vaping status: Never Used Substance Use Topics Alcohol use: No Drug use: No Review of Symptoms REVIEW OF SYSTEMS SEE HPI EXAM: BP 171/81 Pulse 67 Wt 61.2 kg (135 lb) SpO2 98% BMI 23.99 kg/m General Appearance: Well appearing, alert, in no acute distress, well-hydrated, well nourished.. Lungs: Lungs clear to auscultation. No wheezing, rhonchi, rales.. Heart: RRR without murmur, gallop, or rubs. No ectopy. Health Maintenance List Advance Directive Discussion due on 11/08/2024 Mammogram Screening due on 03/09/2025 Influenza Vaccine(1) due on 05/07/2025 Covid-19 Vaccine( season) due on 10/18/2025 HbA1C due on 04/14/2025 Urine Albumin:Creatinine Ratio due on 04/17/2025 Diabetic Foot Exam due on 04/17/2025 Depression Screening due on 04/17/2025 Anxiety Screening due on 04/17/2025 Dilated Retinal Exam due on 09/29/2025 LDL Cholesterol due on 10/14/2025 Annual PCP Team Chronic Disease Visit due on 10/18/2025 BP Controlled (<130/80) due on 10/18/2025 DTaP,Tdap,Td Vaccine(3 - Td or Tdap) due on 04/22/2034 Colorectal Cancer Screening due on 06/19/2034 Bone Density Screening Completed RSV Vaccine Completed Hepatitis C Screening Completed Shingrix Vaccine Completed Pneumococcal Vaccine: 50+ Completed Cervical Cancer Screening Discontinued Data reviewed Last 5 Encounter BP Readings: Date: BP: 12/29/2024 171/81 11/03/2024 138/78 10/18/2024 132/82 09/22/2024 120/68 09/14/2024 155/83 ASSESSMENT/PLAN: 1. Acute cough - ICD9: 786.2, ICD10: R05.1 (primary diagnosis) - COVID & INFLUENZA A/B & RSV PCR, ROUTINE 2. Essential hypertension - ICD9: 401.9, ICD10: I10 -Uncontrolled -BP was noted to be high at cardiology appt as well. Pt to follow up with cardiology for re-eval. Francine Madrid APRN.REPAIRER [employer] documented in this encounter [facility] 12-14-2024 Telephone encounter Note The following approved medication requests have been transmitted electronically. Requested Prescriptions Signed Prescriptions Disp Refills omeprazole (PRILOSEC) 40 mg capsule 30 capsule 5 Sig: Take 1 capsule by mouth once daily. Authorizing Provider: CLIFTON HUNG MD [facility] 12-14-2024 Miscellaneous Notes The following approved medication requests have been transmitted electronically. Requested Prescriptions Signed Prescriptions Disp Refills omeprazole (PRILOSEC) 40 mg capsule 30 capsule 5 Sig: Take 1 capsule by mouth once daily. Authorizing Provider: CLIFTON HUNG MD The patient has been identified by name and date of : Yes Caregiver verified no other encounters exist for this prescription request: Yes Caregiver confirmed with patient/requestor that no other refills are due, in the near future, with this provider at this time: Yes The last office visit in the department: 10/18/2024 Does the patient have a future office visit with this provider/department: Yes 04/19/2025 Requested Prescriptions Pending Prescriptions Disp Refills omeprazole (PRILOSEC) 40 mg capsule 30 capsule 5 Sig: Take 1 capsule by mouth once daily. Seema Escobar RN December 14, 2024 5:43 PM documented in this encounter [facility] 12-14-2024 Telephone encounter Note The patient has been identified by name and date of : Yes Caregiver verified no other encounters exist for this prescription request: Yes Caregiver confirmed with patient/requestor that no other refills are due, in the near future, with this provider at this time: Yes The last office visit in the department: 10/18/2024 Does the patient have a future office visit with this provider/department: Yes 04/19/2025 Requested Prescriptions Pending Prescriptions Disp Refills omeprazole (PRILOSEC) 40 mg capsule 30 capsule 5 Sig: Take 1 capsule by mouth once daily. Seema Escobar RN December 14, 2024 5:43 PM [facility] 11-03-2024 Instructions Alexa Matute MD - 11/03/2024 8:58 AM EST COLLECTING URINE FOR 24 HOURS: 1. Best done the morning of one day to the morning of the next day ( two consecutive mornings). 2. Imperative that you arise from bed at the exact same time on Day 1 and Day 2. 3. When you arise on Day 1 you will have to urinate. This goes into the toilet and is flushed away. 4. Every time from then on for the remainder of Day 1 and at night Day 1 to Day 2, every drop of urine that you pass must go into the container that we will provide for you. 5. When you arise on Day 2 you will also have to urinate. This goes into the container and completes the urine collection. 6. The container should be kept refrigerated until it is turned in to the laboratory. 7. Bring the completed urine collection container to the laboratory as soon as possible. Please do a blood test on fasting at 8 am on the day of dropping the urine sample documented in this encounter [facility] 11-03-2024 Note HNO ID: [id number] Author: ALEXA MATUTE MD Service: ? Author Type: Physician Type: Progress Notes Filed: 11/03/2024 17:51 Note Text: [facility] Follow up note Patient referred by: Ori Lord DO (Urology) History of Present Illness: Ms. Dom Avila is a 68 year old female coming today for follow up evaluation of adrenal nodule. She is following after labs checked for functionality of nodule Initial visit 07/11/24 LV 09/22/24 History in brief, She was seeing urology for UTIs, which first started 1-1.5 years ago. She has had atleast 2 or 3 within 1 year. She thinks she is not having any UTIs since last fall Patient Also described the following: Lost weight due to low appetite Has palpitations intermittently and was diagnosed to have PVCs Denied, Skin stretch benton, easy bruising, excess hair growth over face/chin/chest/or abdomen, voice hoarseness, difficulty raising arms overhead, difficulty getting up from a seated position Headache, Flushing, sweating, Chest pain, Tremors Episodes of Headache, Sweating, palpitations or tremor: No Previous use of Steroids, oral, inhalers, injections: short term use Past Medical History: PAST MEDICAL HISTORY Diagnosis Date Advance directive discussed with patient 04/08/2023 Discussed 03/2023: Up to date Amaurosis fugax 10/29/2017 TIA; right visual disturbance 06/2017 Arthritis tendonitis, arthritis 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 04/2021 Encounter for Medicare annual wellness exam 04/08/2023 Medicare Part B: 07/09/2022 Last done: 04/08/2023 Essential hypertension 01/16/2016 Female pattern hair loss Foot callus 05/26/2021 Gastroesophageal reflux disease without esophagitis 10/18/2024 History of colon polyps History of depression when History of hyperparathyroidism History of transient ischemic attack (TIA) 10/29/2017 06/29/2017 - R homonomous hemianopia with aphasia for couple hours - negative MRI/A following day Irritable bowel syndrome with diarrhea 05/26/2021 Living will on file at physician's office 04/08/2023 DPA: Carmella () Meniere disease, right 10/29/2017 Mixed hyperlipidemia 05/31/2009 statin intolerance Narcolepsy without cataplexy 01/16/2016 Especially with long drives. Has been on provigil for 5-10 yrs Obstructive sleep apnea on CPAP Sibilia Other skin changes 09/26/2021 Seeing derm Pancreatic insufficiency 04/08/[address] Alcantar Psoriasis RLS (restless legs syndrome) 02/22/[address] Aysha Laurent with ocular symptoms S/P angioplasty with stent 01/09/2017 stents to mid and proximal left anterior descending Art, and angio of ostium of #2 diagonal Scalp itch Seasonal allergies Dr Pompa Type 2 diabetes mellitus with hyperlipidemia (HCC) (HCC) 04/17/2024 Vitamin D deficiency 2013 Well adult exam 01/16/2016 Last done: 09/08/2018 Surgical History: PAST SURGICAL HISTORY Procedure Laterality Date 2D ECHO (EXEP) 06/30/2017 EF=65%, trivial CT, TI and 1+ PI Unchanged from 04/2017 2D ECHO (EXEP) 05/14/2021 EF=60%, 1+ TI, trival CT, AI, PI 2D ECHO (EXEP) 09/16/2021 EF=60%, [...] REPAIR, DETACHED RETINA, LASER Right summer 2022 ST (more content not included)... [facility] 11-03-2024 History of Present illness Narrative [facility] Follow up note Patient referred by: Ori Lord DO (Urology) History of Present Illness: Ms. Dom Avila is a 68 year old female coming today for follow up evaluation of adrenal nodule. She is following after labs checked for functionality of nodule Initial visit 07/11/24 LV 09/22/24 History in brief, She was seeing urology for UTIs, which first started 1-1.5 years ago. She has had atleast 2 or 3 within 1 year. She thinks she is not having any UTIs since last fall Patient Also described the following: Lost weight due to low appetite Has palpitations intermittently and was diagnosed to have PVCs Denied, Skin stretch benton, easy bruising, excess hair growth over face/chin/chest/or abdomen, voice hoarseness, difficulty raising arms overhead, difficulty getting up from a seated position Headache, Flushing, sweating, Chest pain, Tremors Episodes of Headache, Sweating, palpitations or tremor: No Previous use of Steroids, oral, inhalers, injections: short term use Past Medical History: PAST MEDICAL HISTORY Diagnosis Date Advance directive discussed with patient 04/08/2023 Discussed 03/2023: Up to date Amaurosis fugax 10/29/2017 TIA; right visual disturbance 06/2017 Arthritis tendonitis, arthritis 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 Encounter for Medicare annual wellness exam 04/08/2023 Medicare Part B: 07/09/2022 Last done: 04/08/2023 Essential hypertension 01/16/2016 Female pattern hair loss Foot callus 05/26/2021 Gastroesophageal reflux disease without esophagitis 10/18/2024 History of colon polyps History of depression when History of hyperparathyroidism History of transient ischemic attack (TIA) 10/29/2017 06/29/2017 - R homonomous hemianopia with aphasia for couple hours - negative MRI/A following day Irritable bowel syndrome with diarrhea 05/26/2021 Living will on file at physician's office 04/08/2023 DPA: Carmella () Meniere disease, right 10/29/2017 Mixed hyperlipidemia 05/31/2009 statin intolerance Narcolepsy without cataplexy 01/16/2016 Especially with long drives. Has been on provigil for 5-10 yrs Obstructive sleep apnea on CPAP Sibilia Other skin changes 09/26/2021 Seeing derm Pancreatic insufficiency 04/08/[address] Alcantar Psoriasis RLS (restless legs syndrome) 02/22/[address] Aysha Laurent with ocular symptoms S/P angioplasty with stent 01/09/2017 stents to mid and proximal left anterior descending Art, and angio of ostium of #2 diagonal Scalp itch Seasonal allergies Dr Pompa Type 2 diabetes mellitus with hyperlipidemia ([facility]) ([facility]) 04/17/2024 Vitamin D deficiency 2013 Well adult exam 01/16/2016 Last done: 09/08/2018 Surgical History: PAST SURGICAL HISTORY Procedure Laterality Date 2D ECHO (EXEP) 06/30/2017 EF=65%, trivial CT, TI and 1+ PI Unchanged from 04/2017 2D ECHO (EXEP) 05/14/2021 EF=60%, 1+ TI, trival CT, AI, PI 2D ECHO (EXEP) 09/16/2021 EF=60%, [...] LEDA for benign fibroid, ovaries intact Family Medical History: FAMILY HISTORY Problem Relation Age of Onset other (Pancreatic cancer) Mother Coronary Artery Disease Father [address] CT @ 25. CABG Diabetes Father Diabetes Paternal Grandmother Diabetes Maternal Grandfather other (Lung cancer) Brother other (suicide) Son may of been depression Social History: Social History Tobacco Use Smoking status: Former Current packs/day: 0.00 Average packs/day: 1.5 packs/day for 3.0 years (4.5 ttl pk-yrs) Types: Cigarettes Start date: 11/08/1991 Quit date: 11/08/1994 Years since quittin.0 Smokeless tobacco: Never Tobacco comments: smoked 3 years in mid 90s Vaping Use Vaping status: Never Used Substance Use Topics Alcohol use: No Drug use: No Allergies: ALLERGIES Allergen Reactions Brilinta [Ticagrelo* Shortness of Breath Crestor [Rosuvastat* Myalgia Keflex [Cephalexin] Other: See Comments facial flushing Lipitor [Atorvastat* Other: See Comments myalgia Lovastatin Other: See Comments myalgia Hughes [Hydrocodone-* Itching Current medications: Current Outpatient Medications Medication Sig ezetimibe (ZETIA) 10 mg tablet Take 1 tablet by mouth once daily. pioglitazone (ACTOS) 15 mg tablet Take 1 tablet by mouth once daily. OTC NUTRITIONAL SUPPLEMENT vitamin omeprazole (PRILOSEC) 40 mg capsule Take 1 capsule by mouth once daily. coenzyme Q10 (COENZYME Q-10) 100 mg cap capsule Ubidecarenone Active 100 MG DAILY August 23, 2019 3:27pm [id number] (CREON 36) 36,000-114,000- 180,000 unit delayed release capsule .COMPLEX lisinopril (ZESTRIL) 40 mg tablet Take 40 mg by mouth once daily. estradiol (ESTRACE) 0.01 % (0.1 mg/gram) vaginal cream Use 1 g vaginally as directed. Insert 1 gm vaginally every night x 14 nights then insert 1 gm vaginally twice weekly tamoxifen (NOLVADEX) 20 mg tablet Take 1 tablet (20 mg) by mouth once daily. Calcium Citrate-Vitamin D3 (CITRACAL+D) 315 mg-6.25 mcg (250 unit) tab Take 2 tablets by mouth once daily. ammonium lactate (LAC-HYDRIN) 12 % lotion Apply 1 application to affected area twice daily as needed. Clobetasol Propionate 0.05 % gel Apply 1 application to affected area as needed. acetaminophen (TYLENOL) 500 mg tablet Take 1,000 mg by mouth every 8 hours as needed. nitroglycerin sublingual (NITROQUICK) 0.4 mg SL tablet Dissolve 1 tablet under the tongue every 5 minutes as needed for Chest Pain. ketoconazole (NIZORAL) 2 % shampoo Apply 1 application to affected area once daily as needed. montelukast (SINGULAIR) 10 mg tablet Take 10 mg by mouth daily at bedtime. metoprolol succinate ER (TOPROL XL) 25 mg 24 hr tablet Take 1 tablet by mouth twice daily. Per Dr. Gomez LACTOBACILLUS ACIDOPHILUS (PROBIOTIC ORAL) Take 1 tablet by mouth once daily. CPAP dexAMETHasone (DECADRON) 1 mg tablet Take the tablet at 11 pm and go for labs the next morning on fasting at 8 am (Patient not taking: Reported on 11/03/2024) metFORMIN (GLUCOPHAGE) 500 mg tablet Take 2 tablets by mouth twice daily with meals. No current facility-administered medications for this visit. Review of Systems: Pertinent as per HPI Physical exam: BP 138/78 (BP Site: Right Arm, BP Position: Sitting, BP Cuff Size: Regular Adult) Pulse 60 Temp 36.1 C (96.9 F) (Temporal Artery) Ht 159.8 cm (5' 2.9) Wt 64.4 kg (142 lb) SpO2 98% BMI 25.23 kg/m General Appearance: Well appearing, alert, in no acute distress, well-hydrated, well nourished, thin to moderately built Eyes: Extraocular movements are intact. Neck: Supple, no adenopathy; thyroid symmetric, normal size, no bruits. Lungs: unlabored breathing on room air Heart: RRR Extremities: No deformities, edema, skin discoloration, clubbing or cyanosis. Peripheral Pulses: Normal. Neurologic: Gait normal. Previous laboratory results: Latest Ref Rng 04/17/2024 Protein, Total 6.3 - 8.0 g/dL 6.3 Albumin 3.9 - 4.9 g/dL 3.8 (L) Calcium 8.5 - 10.2 mg/dL 8.9 Bilirubin, Total 0.2 - 1.3 mg/dL 0.2 Alkaline Phosphatase 34 - 123 U/L 37 AST 13 - 35 U/L 20 ALT 7 - 38 U/L 11 Glucose 74 - 99 mg/dL 119 (H) BUN 7 - 21 mg/dL 11 Creatinine 0.58 - 0.96 mg/dL 0.78 Sodium 136 - 144 mmol/L 142 Potassium 3.7 - 5.1 mmol/L 4.1 Chloride 98 - 107 mmol/L 105 CO2 22 - 30 mmol/L 26 Anion Gap 8 - 15 mmol/L 11 eGFR >=60 mL/min/1.73m 84 Latest Ref Rng 08/08/2024 10/02/2024 8.18 AM 10/03/2024 8.11 AM Aldosterone 0.0 - <35.4 ng/dL 6.1 Direct Renin 3.6 - 81.6 pg/mL 5.2 Aldosterone/Renin Ratio <3.8 1.2 Patient Upright or Supine Upright Creatinine 0.58 - 0.96 mg/dL 0.96 eGFR >=60 mL/min/1.73m 65 Potassium 3.7 - 5.1 mmol/L 3.8 DHEA-S <=246.9 ug/dL 44.2 ACTH 7.2 - 63.3 pg/mL 25.6 Dexamethasone ng/dL <50.0 Cortisol,ON DEX,Post <1.8 ug/dL 2.0 (H) Legend: (L) Low (H) High Imaging: CT abdomen/pelvis: 11/25/2022: RESULT: Liver: Stable subcentimeter hypodensity within the left lobe 2 small fully characterize, most likely benign etiology. No further focal abnormality is seen. Hepatic steatosis. Biliary: No bile duct dilation. Gallbladder is absent. Spleen: No mass. No splenomegaly. Pancreas: No mass or duct dilation. Adrenals: Right adrenal gland is unremarkable. On coronal images, for example 5:78, there appears to be a hypodense nodule extending from the adrenal gland the overall size measuring 2.4 x 1.5 cm. Correlation with previous abdominal CT demonstrates lesion to be stable, adenoma considered as a possible etiology. Kidneys: Stable 1 cm low-attenuation lesion in the right lower pole, most consistent with simple cysts. Smaller hypodense lesion within the medial midpole of the left kidney, too small to fully characterize, benign etiology suspected. No hydronephrosis or renal calculus bilaterally. GI tract: No dilation or wall thickening. Normal appendix. Lymph nodes: No abdominal or pelvic lymphadenopathy. Mesentery/Peritoneum: No ascites or mass. Retroperitoneum: No mass. Vasculature: - Abdominal aorta and iliac arteries: No aneurysm. - Celiac and SMA: Patent without stenosis. - Portal venous system (SMV, splenic vein, portal vein and branches): Patent. - Hepatic veins: Patent. Pelvis: No mass, ascites or fluid collection. Prior hysterectomy Bones/Soft Tissues: No significant finding. Lower thorax: Unremarkable. Jewish Thought Professor (topogram) images: No additional findings. IMPRESSION: Stable hypodensity within the left hepatic lobe, most consistent with benign etiology. Hepatic steatosis. Probable small cysts of the kidneys. There is a hypodensity which appears to extend from the left adrenal gland, stable, possible etiologies include adenoma. Previous Adrenal CT: CT abdomen/pelvis w IV contrast : 09/2022 with no adrenal nodules - reviewed images also do not have a similar hypodensity seen on the CT in 11/2022 CT abdomen 06/2024 with reportedly normal B/L adrenal nodules CT adrenal w/wo IV contrast: 08/15/24 COMPARISON: CT abdomen and pelvis 11/25/2022 and prior RESULT: Adrenal glands: Right adrenal gland: No nodules, masses or thickening. Left adrenal gland: A 0.7 x 0.6 x 1.0 cm hypoattenuating nodule of the left adrenal gland demonstrates precontrast attenuation of adenoma (6 HU), no significant interval change compared to 05/2019 also favoring benign process. Abdomen: Liver: Unremarkable. Biliary System: Gallbladder is underdistended. Spleen: No splenomegaly. Punctate calcifications likely granulomas. Pancreas: No pancreatic duct dilation. Otherwise unremarkable. Kidneys: No stones or hydronephrosis. Stable 1.1 cm cortical cyst in the right lateral interpolar region. Lymph Nodes: No abdominal lymphadenopathy. Mesentery/Peritoneum: Minimal fat stranding in the mesentery of the left flank adjacent small bowel but no focal lesion or obstruction. No ascites or mass. GI Tract: Imaged segments are unremarkable. Vasculature: No aortic aneurysm, no significant atherosclerotic plaque Lower thorax and bones: No significant findings. Jewish Thought Professor (topogram) images: No additional findings. IMPRESSION: 1. Stable 1.0 cm left adrenal adenoma. 2. Minimal mesenteric fat stranding in the left flank, nonspecific. ASSESSMENT/PLAN: Left adrenal nodule/incidentaloma CT adrenal shows stable 1 cm left adrenal adenoma. Given characteristics of the nodule, it appears to be benign and does not require testing for Pheo ARR with no concerns. Cortisol on DST is elevated (patient reports taking medication on the night before the test although labs not done as instructed) - we discussed following up this one with a 24 hr urine free cortisol testing- instructions given verbally and in writing Will do ACTH on a different day on fasting at 8 am I might also consider doing a 2 mg or 8 mg DST for confirming the nodular functionality for steroid suppression Briefly discussed treatment for functional nodule has surgery as the first choice and hence more testing for confirmation she is okay with surgery if needed She voiced understanding of the plan. Follow up in 2 months Medical Decision Making: Problems: Moderate: New problem with uncertain prognosis Data: Unique test result(s) reviewed: 3+ Unique test(s) ordered: 3+ Medical Decision Making Level: 4 - Moderate SIGNATURE: Alexa Matute MD DATE of SERVICE: July 11, 2024 TIME of SERVICE: 12:48 PM documented in this encounter [facility] 10-18-2024 Instructions Clifton Hung MD - 10/18/2024 9:51 AM EST Please get labs and urine test done on or after prior to your next visit. documented in this encounter [facility] 10-18-2024 History of Present illness Narrative Chief Complaint Patient presents with: F/U 6 months HPI Dom Avila is a 69 year old female who presents here today for 6 month follow up. Patient with hx of HTN, hyperlipidemia, SEBAS, DM2, CAD, hyperparathyroid, hx of breast cancer, and those as below. Patient has pain in left elbow 2-3 days on the lateral side and difficult to straighten the arm out. Will get tingling in her 2nd and 3rd digits. Does clean the chucrh 3 days a week.. Patient declined Flu/COVID. Patient sees Hematology/oncology next visit 03/2025 Patient sees urology next visit 01/2025 Patient sees Endrocrinology next visit 10/2024 Patient sees Ophthalmology last visit 09/2024 Patient sees Cardiology - [facility] last visit 04/2024 Past medical history, appointments, medications, allergies reviewed. 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 CAD (coronary artery disease) Cataract Colon polyp 2011 Controlled type 2 diabetes [...] on file at physician's office 04/08/2023 DPA: Carmella () Meniere disease, right 10/29/2017 Mixed hyperlipidemia [...] Date 2D ECHO (EXEP) 06/30/2017 EF=65%, trivial CT, TI and 1+ PI Unchanged from 04/2017 2D ECHO (EXEP) 05/14/2021 EF=60%, 1+ TI, trival CT, AI, PI 2D ECHO (EXEP) 09/16/2021 EF=60%, [...] cancer) Mother Coronary Artery Disease Father [address] CT @ 25. CABG Diabetes Father Diabetes Paternal Grandmother Diabetes Maternal Grandfather other (Lung cancer) Brother other (suicide) Son may of been depression Patient Allergies ALLERGIES Allergen Reactions Brilinta [Ticagrelo* Shortness of Breath Crestor [Rosuvastat* Myalgia Keflex [Cephalexin] Other: See Comments facial flushing Lipitor [Atorvastat* Other: See Comments myalgia Lovastatin Other: See Comments myalgia Hughes [Hydrocodone-* Itching Current Medications Current Outpatient Medications on File Prior to Visit Medication Sig dexAMETHasone (DECADRON) 1 mg tablet Take the tablet at 11 pm and go for labs the next morning on fasting at 8 am OTC NUTRITIONAL SUPPLEMENT vitamin pioglitazone (ACTOS) 15 mg tablet Take 1 tablet by mouth once daily. omeprazole (PRILOSEC) 40 mg capsule Take 1 capsule by mouth once daily. doxycycline (VIBRA-TABS) 100 mg tablet Take 200 mg by mouth one time only. coenzyme Q10 (COENZYME Q-10) 100 mg cap capsule Ubidecarenone Active 100 MG DAILY August 23, 2019 3:27pm [id number]-adlwrrjs-uzzlsru (CREON 36) 36,000-114,000- 180,000 unit delayed release capsule .COMPLEX lisinopril (ZESTRIL) 40 mg tablet Take 40 mg by mouth once daily. estradiol (ESTRACE) 0.01 % (0.1 mg/gram) vaginal cream Use 1 g vaginally as directed. Insert 1 gm vaginally every night x 14 nights then insert 1 gm vaginally twice weekly tamoxifen (NOLVADEX) 20 mg tablet Take 1 tablet (20 mg) by mouth once daily. Calcium Citrate-Vitamin D3 (CITRACAL+D) 315 mg-6.25 mcg (250 unit) tab Take 2 tablets by mouth once daily. ezetimibe (ZETIA) 10 mg tablet Take 1 tablet by mouth once daily. metFORMIN (GLUCOPHAGE) 500 mg tablet Take 2 tablets by mouth twice daily with meals. ammonium lactate (LAC-HYDRIN) 12 % lotion Apply 1 application to affected area twice daily as needed. Clobetasol Propionate 0.05 % gel Apply 1 application to affected area as needed. acetaminophen (TYLENOL) 500 mg tablet Take 1,000 mg by mouth every 8 hours as needed. nitroglycerin sublingual (NITROQUICK) 0.4 mg SL tablet Dissolve 1 tablet under the tongue every 5 minutes as needed for Chest Pain. ketoconazole (NIZORAL) 2 % shampoo Apply 1 application to affected area once daily as needed. montelukast (SINGULAIR) 10 mg tablet Take 10 mg by mouth daily at bedtime. metoprolol succinate ER (TOPROL XL) 25 mg 24 hr tablet Take 1 tablet by mouth twice daily. Per Dr. Gomez LACTOBACILLUS ACIDOPHILUS (PROBIOTIC ORAL) Take 1 tablet by mouth once daily. CPAP No current facility-administered medications on file prior to visit. Social History Social History Tobacco Use Smoking status: Former Current packs/day: 0.00 Average packs/day: 1.5 packs/day for 3.0 years (4.5 ttl pk-yrs) Types: Cigarettes Start date: 11/08/1991 Quit date: 11/08/1994 Years since quittin.9 Smokeless tobacco: Never Tobacco comments: smoked 3 years in mid 90s Vaping Use Vaping status: Never Used Substance Use Topics Alcohol use: No Drug use: No Review of Symptoms REVIEW OF SYSTEMS GENERAL: No weight loss, malaise or fevers NECK: Negative for lumps, goiter, pain and significant neck swelling RESPIRATORY: Negative for cough, hemoptysis, wheezing, COPD, dyspnea or shortness of breath CARDIOVASCULAR: Negative for chest pain, leg swelling, hypertension, CHF or palpitations GI: No nausea, vomiting, or increased diarrhea and No heartburn or reflux symptoms : No history of dysuria, blood ENDOCRINE: Negative for cold or heat intolerance, polyuria, polydipsia and goiter NEURO: No history of headaches, syncope, paralysis, seizures or tremors Musc: see HPI EXAM: BP 140/92 Pulse 62 Temp 36.4 C (97.6 F) Resp 16 Wt 63.5 kg (140 lb) BMI 24.88 kg/m BP 132/82 Pulse 62 Temp 36.4 C (97.6 F) Resp 16 Wt 63.5 kg (140 lb) BMI 24.88 kg/m Last 5 Encounter Wt Readings: Date: Wt: 10/18/2024 63.5 kg (140 lb) 09/22/2024 63.2 kg (139 lb 6.4 oz) 09/14/2024 63.2 kg (139 lb 5.3 oz) 08/04/2024 63 kg (139 lb) 07/11/2024 63.1 kg (139 lb 3.2 oz) General Appearance: Well appearing, alert, in no acute distress, well-hydrated, well nourished.. Eyes: Anicteric sclera. Pupils are equally round and reactive to light. Extraocular movements are intact. . Neck: Supple, no adenopathy; thyroid symmetric, normal size, no bruits. Lungs: Lungs clear to auscultation. No wheezing, rhonchi, rales.. Heart: RRR without murmur, gallop, or rubs. No ectopy. Abdomen: Normal abdominal exam, Abdomen soft, non-tender. Bowel sounds normal. No masses, organomegaly. Extremities: No deformities, edema, skin discoloration, clubbing or cyanosis. Good capillary refill. . Musculoskeletal: Spine range of motion normal. Muscular strength intact, there is mild tenderness over the right lateral epicondyle. No pain with forced supination or forced wrist flexion. Tinel's and Phallin's tests were neg. Peripheral Pulses: Normal. Neurologic: Gait normal. Reflexes normal and symmetric. Sensation t light touch and crainal nerves 2-12 intact.. Health Maintenance List Influenza Vaccine(1) due on 07/09/2024 Covid-19 Vaccine(2023- season) due on 07/09/2024 Mammogram Screening due on 03/09/2025 HbA1C due on 04/14/2025 Urine Albumin:Creatinine Ratio due on 04/17/2025 Diabetic Foot Exam due on 04/17/2025 Annual PCP Team Chronic Disease Visit due on 04/17/2025 Depression Screening due on 04/17/2025 Anxiety Screening due on 04/17/2025 BP Controlled (<130/80) due on 09/22/2025 Dilated Retinal Exam due on 09/29/2025 LDL Cholesterol due on 10/14/2025 DTaP,Tdap,Td Vaccine(3 - Td or Tdap) due on 04/22/2034 Colorectal Cancer Screening due on 06/19/2034 Bone Density Screening Completed Advance Directive Discussion Completed RSV Vaccine Completed Hepatitis C Screening Completed Shingrix Vaccine Completed Pneumococcal Vaccine: 65+ Completed Cervical Cancer Screening Discontinued Data reviewed Latest Ref Rng 04/17/2024 10/14/2024 WBC 3.70 - 11.00 k/uL 5.22 RBC 3.90 - 5.20 m/uL 4.04 Hemoglobin 11.5 - 15.5 g/dL 12.4 Hematocrit 36.0 - 46.0 % 38.3 MCV 80.0 - 100.0 fL 94.8 MCH 26.0 - 34.0 pg 30.7 MCHC 30.5 - 36.0 g/dL 32.4 RDW-CV 11.5 - 15.0 % 14.2 Platelet Count 150 - 400 k/uL 204 MPV 9.0 - 12.7 fL 9.9 Neut% % 54.2 Abs Neut (ANC) 1.45 - 7.50 k/uL 2.83 Lymph% % 34.9 Abs Lymph 1.00 - 4.00 k/uL 1.82 [place]% % 9.0 Abs [place] <0.87 k/uL 0.47 Eosin% % 1.3 Abs Eosin <0.46 k/uL 0.07 Baso% % 0.4 Abs Baso <0.11 k/uL <0.03 Immature Gran % % 0.2 IMMATURE GRANS (ABS) <0.10 k/uL <0.03 NRBC /100 WBC 0.0 Absolute nRBC <0.01 k/uL <0.01 DTYPE Auto Protein, Total 6.3 - 8.0 g/dL 6.3 Albumin 3.9 - 4.9 g/dL 3.8 (L) Calcium 8.5 - 10.2 mg/dL 8.9 9.2 Bilirubin, Total 0.2 - 1.3 mg/dL 0.2 Alkaline Phosphatase 34 - 123 U/L 37 AST 13 - 35 U/L 20 ALT 7 - 38 U/L 11 Glucose 74 - 99 mg/dL 119 (H) 103 (H) BUN 7 - 21 mg/dL 11 18 Creatinine 0.58 - 0.96 mg/dL 0.78 0.79 Sodium 136 - 144 mmol/L 142 142 Potassium 3.7 - 5.1 mmol/L 4.1 4.2 Chloride 98 - 107 mmol/L 105 104 CO2 22 - 30 mmol/L 26 28 Anion Gap 8 - 15 mmol/L 11 10 eGFR >=60 mL/min/1.73m 84 82 Total Cholesterol, Nonfasting <200 mg/dL 153 202 (H) Triglycerides, Nonfasting <150 mg/dL 132 94 HDL Cholesterol, Nonfasting >39 mg/dL 36 (L) 45 LDL Cholesterol, Nonfasting <100 mg/dL 91 138 (H) Non HDL Cholesterol, Nonfasting <130 mg/dL 117 157 (H) VLDL Cholesterol, Nonfasting <30 mg/dL 26 19 Total Chol/HDL Ratio, Nonfasting <5.10 mg/dL 4.25 4.49 LDL/HDL Ratio, Nonfasting <2.54 mg/dL 2.53 3.07 (H) Hemoglobin A1C 4.3 - 5.6 % 7.4 (H) 6.2 (H) Estimated Average Glucose mg/dL 166 131 Vitamin D 25 Hydroxy 31.0 - 80.0 ng/mL 30.6 (L) 34.7 A/P ASSESSMENT/PLAN: 1. Type 2 diabetes mellitus with hyperlipidemia (HCC) ([facility]) - ICD9: 250.80, 272.4, ICD10: E11.69, E78.5 (primary diagnosis) - Controlled - Improving control - Continue current medications - Counseled on healthy diet and regular exercise - Discussed need for and benefit of weight loss. BMI 24.88 kg/(m^2) - Uncontrolled - Counseled on healthy diet and regular exercise - Discussed need for and benefit of weight loss. BMI 24.88 kg/(m^2) - does not tolerate statins 2. Controlled type 2 diabetes mellitus without complication, without long-term current use of insulin ([facility]) - ICD9: 250.00, ICD10: E11.9 - Controlled - Improving control - Continue current medications - Counseled on healthy diet and regular exercise - Discussed need for and benefit of weight loss. BMI 24.88 kg/(m^2) 3. Diabetic eye exam ([facility]) - ICD9: V72.0, 250.00, ICD10: Z01.00, E11.9 - up to date 4. Essential hypertension - ICD9: 401.9, ICD10: I10 - Controlled - Continue current medications - Recommend home blood pressure monitoring, to bring results to next visit - Encouraged sodium restriction, DASH or Mediterranean diet - Recommend regular aerobic exercise - Discussed need for and benefit of weight loss. BMI 24.88 kg/(m^2) 5. Mixed hyperlipidemia - ICD9: 272.2, ICD10: E78.2 - Uncontrolled - Counseled on healthy diet and regular exercise - Discussed need for and benefit of weight loss. BMI 24.88 kg/(m^2) - not able to tolerate statins. 6. 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) - ICD9: 414.01, 413.9, ICD10: I25.118 - clinically stable and follows with Cardio 7. Ductal carcinoma in situ (DCIS) of left breast - ICD9: 233.0, ICD10: D05.12 - managed per oncology 8. Narcolepsy without cataplexy - ICD9: 347.00, ICD10: G47.419 - stable off meds. 9. Vitamin D deficiency - ICD9: 268.9, ICD10: E55.9 - controlled with replacement 10. Right lateral epicondylitis - ICD9: 726.32, ICD10: M77.11 - discussed getting a tennis elbow strap. - HEP sheet provided. - if not improving will need to do OT. 12. Gastroesophageal reflux disease without esophagitis - ICD9: 530.81, ICD10: K21.9 - Continue treatment with Prilosec 40 mg every day Requested Prescriptions Signed Prescriptions Disp Refills ezetimibe (ZETIA) 10 mg tablet 90 tablet 1 Sig: Take 1 tablet by mouth once daily. pioglitazone (ACTOS) 15 mg tablet 90 tablet 1 Sig: Take 1 tablet by mouth once daily. F/u 6 months extensive check CMP, Lipid, UA, urine micro albumin, A1c, CBC, B12, Mg, Clifton Hung MD documented in this encounter [facility] 10-18-2024 Note HNO ID: [id number] Author: CLIFTON HUNG MD Service: ? Author Type: Physician Type: Progress Notes Filed: 10/18/2024 10:31 Note Text: Chief Complaint Patient presents with: F/U 6 months HPI Dom Avila is a 69 year old female who presents here today for 6 month follow up. Patient with hx of HTN, hyperlipidemia, SEBAS, DM2, CAD, hyperparathyroid, hx of breast cancer, and those as below. Patient has pain in left elbow 2-3 days on the lateral side and difficult to straighten the arm out. Will get tingling in her 2nd and 3rd digits. Does clean the chucrh 3 days a week.. Patient declined Flu/COVID. Patient sees Hematology/oncology next visit 03/2025 Patient sees urology next visit 01/2025 Patient sees Endrocrinology next visit 10/2024 Patient sees Ophthalmology last visit 09/2024 Patient sees Cardiology - [facility] last visit 04/2024 Past medical history, appointments, medications, allergies reviewed. 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 CAD (coronary artery disease) Cataract Colon polyp 2011 Controlled type 2 diabetes [...] on file at physician's office 04/08/2023 DPA: Carmella () Meniere disease, right 10/29/2017 Mixed hyperlipidemia [...] Date 2D ECHO (EXEP) 06/30/2017 EF=65%, trivial CT, TI and 1+ PI Unchanged from 04/2017 2D ECHO (EXEP) 05/14/2021 EF=60%, 1+ TI, trival CT, AI, PI 2D ECHO (EXEP) 09/16/2021 EF=60%, [...] (Pancreatic cancer) Mother Coronary Artery Disease Father (more content not included)... [facility] 10-13-2024 Telephone encounter Note Left detailed message. Shakeel Yang MA [facility] 10-13-2024 Miscellaneous Notes Left detailed message. Shakeel Yang MA Labs placed. Patient calls and states that she has a 6 month follow up on 10/18. Patient asking if provider wants her to get labs done prior to appointment? Please review and adviseSylwia RN documented in this encounter [facility] 10-13-2024 Telephone encounter Note Labs placed. [facility] 10-13-2024 Telephone encounter Note Patient calls and states that she has a 6 month follow up on 10/18. Patient asking if provider wants her to get labs done prior to appointment? Please review and advise, Sylwia Kirk RN [facility] 10-02-2024 Note HNO ID: [id number] Author: SHAKEEL YANG MA Service: ? Author Type: Tuber Machine Cutter Type: Progress Notes Filed: 10/02/2024 17:02 Note Text: Scan on 09/29/2024 4:11 PM by ProviderDeyvi PA-C: Consultation - Ophthalmology Shakeel Yang MA [facility] 10-02-2024 History of Present illness Narrative Scan on 09/29/2024 4:11 PM by Deyvi Yadav PA-C: Consultation - Ophthalmology Shakeel Yang MA documented in this encounter [facility] 09-26-2024 Telephone encounter Note Notified via [employer]. Advised to call in and schedule. Kassandra Mitchell MA [facility] 09-26-2024 Miscellaneous Notes Notified via [employer]. Advised to call in and schedule. Kassandra Mitchell MA Patient should have an ER follow up appt. See [employer] message. Kassandra Mitchell MA documented in this encounter [facility] 09-26-2024 Telephone encounter Note Patient should have an ER follow up appt. [facility] 09-26-2024 Telephone encounter Note See [employer] message. Kassandra Mitchell MA [facility] 09-22-2024 Alexa Horton MD - 09/22/2024 9:34 AM EST Please do blood labs on two different days DAY 1: Dhea-S, Aldosterone/renin, potassium- fasting at 8 am DAY 2: Dexamethasone suppression test Directions for dexamethasone suppression test: 1. Take dexamethasone 1-mg tab by mouth at 11 PM the evening before your test. 2. Go to the lab the next morning and have your blood drawn at ~8 AM. *Do not eat or drink anything other than water from the time you take dexamethasone to the time you get your blood drawn. 3. If either of the following situations happen, DO NOT HAVE YOUR BLOOD DRAWN: A. You forget to take the pill at 11 PM the evening before B. You cannot get your blood drawn the next morning at ~8 AM C. If either situation happens, please call me to let me know documented in this encounter [facility] 09-22-2024 Note HNO ID: [id number] Author: ALEXA MATUTE MD Service: ? Author Type: Physician Type: Progress Notes Filed: 09/24/2024 20:21 Note Text: [facility] Follow up note History of Present Illness: Ms. Dom Avila is a 68 year old female coming today for evaluation of adrenal nodule Initial visit/ LV 07/11/24 Patient referred by: Ori Lord DO (Urology) She was seeing urology for UTIs, which first started 1-1.5 years ago. She has had atleast 2 or 3 within 1 year. She thinks she is not having any UTIs since last fall Patient Also described the following: Lost weight due to low appetite Has palpitations intermittently and was diagnosed to have PVCs Denied, Skin stretch benton, easy bruising, excess hair growth over face/chin/chest/or abdomen, voice hoarseness, difficulty raising arms overhead, difficulty getting up from a seated position Headache, Flushing, sweating, Chest pain, Tremors Episodes of Headache, Sweating, palpitations or tremor: No Previous use of Steroids, oral, inhalers, injections: short term use Past Medical History: PAST MEDICAL HISTORY Diagnosis Date Advance directive discussed with patient 04/08/2023 Discussed 03/2023: Up to date Amaurosis fugax 10/29/2017 TIA; right visual disturbance 06/2017 Arthritis tendonitis, arthritis 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 CAD (coronary artery disease) Cataract Colon polyp 2011 Controlled type 2 diabetes mellitus without complication, without long-term current use of insulin ([facility]) 10/22/2016 De Quervain's tenosynovitis, left [...] on file at physician's office 04/08/2023 DPA: Carmella () Meniere disease, right 10/29/2017 Mixed hyperlipidemia [...] Well adult exam 01/16/2016 Last done: 09/08/2018 Surgical History: PAST SURGICAL HISTORY Procedure Laterality Date 2D ECHO (EXEP) 06/30/2017 EF=65%, trivial CT, TI and 1+ PI Unchanged from 04/2017 2D ECHO (EXEP) 05/14/2021 EF=60%, 1+ TI, trival CT, AI, PI 2D ECHO (EXEP) 09/16/2021 EF=60%, [...] LEDA for benign fibroid, ovaries intact Family (more content not included)... [facility] 09-22-2024 History of Present illness Narrative [facility] Follow up note History of Present Illness: Ms. Dom Avila is a 68 year old female coming today for evaluation of adrenal nodule Initial visit/ LV 07/11/24 Patient referred by: Ori Lord DO (Urology) She was seeing urology for UTIs, which first started 1-1.5 years ago. She has had atleast 2 or 3 within 1 year. She thinks she is not having any UTIs since last fall Patient Also described the following: Lost weight due to low appetite Has palpitations intermittently and was diagnosed to have PVCs Denied, Skin stretch benton, easy bruising, excess hair growth over face/chin/chest/or abdomen, voice hoarseness, difficulty raising arms overhead, difficulty getting up from a seated position Headache, Flushing, sweating, Chest pain, Tremors Episodes of Headache, Sweating, palpitations or tremor: No Previous use of Steroids, oral, inhalers, injections: short term use Past Medical History: PAST MEDICAL HISTORY Diagnosis Date Advance directive discussed with patient 04/08/2023 Discussed 03/2023: Up to date Amaurosis fugax 10/29/2017 TIA; right visual disturbance 06/2017 Arthritis tendonitis, arthritis 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 CAD (coronary artery disease) Cataract Colon polyp 2011 Controlled type 2 diabetes [...] on file at physician's office 04/08/2023 DPA: Carmella () Meniere disease, right 10/29/2017 Mixed hyperlipidemia [...] Well adult exam 01/16/2016 Last done: 09/08/2018 Surgical History: PAST SURGICAL HISTORY Procedure Laterality Date 2D ECHO (EXEP) 06/30/2017 EF=65%, trivial CT, TI and 1+ PI Unchanged from 04/2017 2D ECHO (EXEP) 05/14/2021 EF=60%, 1+ TI, trival CT, AI, PI 2D ECHO (EXEP) 09/16/2021 EF=60%, [...] LEDA for benign fibroid, ovaries intact Family Medical History: FAMILY HISTORY Problem Relation Age of Onset other (Pancreatic cancer) Mother Coronary Artery Disease Father [address] @ 25. CABG Diabetes Father Diabetes Paternal Grandmother Diabetes Maternal Grandfather other (Lung cancer) Brother other (suicide) Son may of been depression Social History: Social History Tobacco Use Smoking status: Former Current packs/day: 0.00 Average packs/day: 1.5 packs/day for 3.0 years (4.5 ttl pk-yrs) Types: Cigarettes Start date: 11/08/1991 Quit date: 11/08/1994 Years since quittin.8 Smokeless tobacco: Never Tobacco comments: smoked 3 years in mid 90s Vaping Use Vaping status: Never Used Substance Use Topics Alcohol use: No Drug use: No Allergies: ALLERGIES Allergen Reactions Brilinta [Ticagrelo* Shortness of Breath Crestor [Rosuvastat* Myalgia Keflex [Cephalexin] Other: See Comments facial flushing Lipitor [Atorvastat* Other: See Comments myalgia Lovastatin Other: See Comments myalgia Hughes [Hydrocodone-* Itching Current medications: Current Outpatient Medications Medication Sig OTC NUTRITIONAL SUPPLEMENT vitamin pioglitazone (ACTOS) 15 mg tablet Take 1 tablet by mouth once daily. omeprazole (PRILOSEC) 40 mg capsule Take 1 capsule by mouth once daily. doxycycline (VIBRA-TABS) 100 mg tablet Take 200 mg by mouth one time only. coenzyme Q10 (COENZYME Q-10) 100 mg cap capsule Ubidecarenone Active 100 MG DAILY August 23, 2019 3:27pm barpag-kpkjyccr-wiarrnb (CREON 36) 36,000-114,000- 180,000 unit delayed release capsule .COMPLEX lisinopril (ZESTRIL) 40 mg tablet Take 40 mg by mouth once daily. estradiol (ESTRACE) 0.01 % (0.1 mg/gram) vaginal cream Use 1 g vaginally as directed. Insert 1 gm vaginally every night x 14 nights then insert 1 gm vaginally twice weekly tamoxifen (NOLVADEX) 20 mg tablet Take 1 tablet (20 mg) by mouth once daily. Calcium Citrate-Vitamin D3 (CITRACAL+D) 315 mg-6.25 mcg (250 unit) tab Take 2 tablets by mouth once daily. ezetimibe (ZETIA) 10 mg tablet Take 1 tablet by mouth once daily. ammonium lactate (LAC-HYDRIN) 12 % lotion Apply 1 application to affected area twice daily as needed. Clobetasol Propionate 0.05 % gel Apply 1 application to affected area as needed. acetaminophen (TYLENOL) 500 mg tablet Take 1,000 mg by mouth every 8 hours as needed. nitroglycerin sublingual (NITROQUICK) 0.4 mg SL tablet Dissolve 1 tablet under the tongue every 5 minutes as needed for Chest Pain. ketoconazole (NIZORAL) 2 % shampoo Apply 1 application to affected area once daily as needed. montelukast (SINGULAIR) 10 mg tablet Take 10 mg by mouth daily at bedtime. metoprolol succinate ER (TOPROL XL) 25 mg 24 hr tablet Take 1 tablet by mouth twice daily. Per Dr. Gomez LACTOBACILLUS ACIDOPHILUS (PROBIOTIC ORAL) Take 1 tablet by mouth once daily. CPAP metFORMIN (GLUCOPHAGE) 500 mg tablet Take 2 tablets by mouth twice daily with meals. No current facility-administered medications for this visit. Review of Systems: Pertinent as per HPI Physical exam: BP 120/68 (BP Site: Left Arm, BP Position: Sitting, BP Cuff Size: Regular Adult) Pulse 72 Resp 12 Wt 63.2 kg (139 lb 6.4 oz) BMI 24.77 kg/m General Appearance: Well appearing, alert, in no acute distress, well-hydrated, well nourished, thin to moderately built Eyes: Extraocular movements are intact. Neck: Supple, no adenopathy; thyroid symmetric, normal size, no bruits. Lungs: unlabored breathing on room air Heart: RRR Extremities: No deformities, edema, skin discoloration, clubbing or cyanosis. Peripheral Pulses: Normal. Neurologic: Gait normal. Previous laboratory results: Latest Ref Rng 04/17/2024 Protein, Total 6.3 - 8.0 g/dL 6.3 Albumin 3.9 - 4.9 g/dL 3.8 (L) Calcium 8.5 - 10.2 mg/dL 8.9 Bilirubin, Total 0.2 - 1.3 mg/dL 0.2 Alkaline Phosphatase 34 - 123 U/L 37 AST 13 - 35 U/L 20 ALT 7 - 38 U/L 11 Glucose 74 - 99 mg/dL 119 (H) BUN 7 - 21 mg/dL 11 Creatinine 0.58 - 0.96 mg/dL 0.78 Sodium 136 - 144 mmol/L 142 Potassium 3.7 - 5.1 mmol/L 4.1 Chloride 98 - 107 mmol/L 105 CO2 22 - 30 mmol/L 26 Anion Gap 8 - 15 mmol/L 11 eGFR >=60 mL/min/1.73m 84 Legend: (L) Low (H) High Imaging: CT abdomen/pelvis: 11/25/2022: RESULT: Liver: Stable subcentimeter hypodensity within the left lobe 2 small fully characterize, most likely benign etiology. No further focal abnormality is seen. Hepatic steatosis. Biliary: No bile duct dilation. Gallbladder is absent. Spleen: No mass. No splenomegaly. Pancreas: No mass or duct dilation. Adrenals: Right adrenal gland is unremarkable. On coronal images, for example 5:78, there appears to be a hypodense nodule extending from the adrenal gland the overall size measuring 2.4 x 1.5 cm. Correlation with previous abdominal CT demonstrates lesion to be stable, adenoma considered as a possible etiology. Kidneys: Stable 1 cm low-attenuation lesion in the right lower pole, most consistent with simple cysts. Smaller hypodense lesion within the medial midpole of the left kidney, too small to fully characterize, benign etiology suspected. No hydronephrosis or renal calculus bilaterally. GI tract: No dilation or wall thickening. Normal appendix. Lymph nodes: No abdominal or pelvic lymphadenopathy. Mesentery/Peritoneum: No ascites or mass. Retroperitoneum: No mass. Vasculature: - Abdominal aorta and iliac arteries: No aneurysm. - Celiac and SMA: Patent without stenosis. - Portal venous system (SMV, splenic vein, portal vein and branches): Patent. - Hepatic veins: Patent. Pelvis: No mass, ascites or fluid collection. Prior hysterectomy Bones/Soft Tissues: No significant finding. Lower thorax: Unremarkable. Jewish Thought Professor (topogram) images: No additional findings. IMPRESSION: Stable hypodensity within the left hepatic lobe, most consistent with benign etiology. Hepatic steatosis. Probable small cysts of the kidneys. There is a hypodensity which appears to extend from the left adrenal gland, stable, possible etiologies include adenoma. Previous Adrenal CT: CT abdomen/pelvis w IV contrast : 09/2022 with no adrenal nodules - reviewed images also do not have a similar hypodensity seen on the CT in 11/2022 CT abdomen 06/2024 with reportedly normal B/L adrenal nodules CT adrenal w/wo IV contrast: 08/15/24 COMPARISON: CT abdomen and pelvis 11/25/2022 and prior RESULT: Adrenal glands: Right adrenal gland: No nodules, masses or thickening. Left adrenal gland: A 0.7 x 0.6 x 1.0 cm hypoattenuating nodule of the left adrenal gland demonstrates precontrast attenuation of adenoma (6 HU), no significant interval change compared to 05/2019 also favoring benign process. Abdomen: Liver: Unremarkable. Biliary System: Gallbladder is underdistended. Spleen: No splenomegaly. Punctate calcifications likely granulomas. Pancreas: No pancreatic duct dilation. Otherwise unremarkable. Kidneys: No stones or hydronephrosis. Stable 1.1 cm cortical cyst in the right lateral interpolar region. Lymph Nodes: No abdominal lymphadenopathy. Mesentery/Peritoneum: Minimal fat stranding in the mesentery of the left flank adjacent small bowel but no focal lesion or obstruction. No ascites or mass. GI Tract: Imaged segments are unremarkable. Vasculature: No aortic aneurysm, no significant atherosclerotic plaque Lower thorax and bones: No significant findings. Jewish Thought Professor (topogram) images: No additional findings. IMPRESSION: 1. Stable 1.0 cm left adrenal adenoma. 2. Minimal mesenteric fat stranding in the left flank, nonspecific. ASSESSMENT/PLAN: Left adrenal nodule/incidentaloma CT adrenal shows stable 1 cm left adrenal adenoma. We reviewed testing for functionality of the nodule. Given characteristics of the nodule, it appears to be benign and does not require testing for Pheo either We discussed doing ARR, along with potassium, DHEA-s, ACTH and 1 mg DST on a different day- clear instructions given verbally and in writing. Discussed of functional nodule on screening, will need further labs and decision usually will be surgery being the first choice She voiced understanding of the plan. Follow up in 4 weeks, with lab results Medical Decision Making: Problems: Moderate: New problem with uncertain prognosis Data: Unique test result(s) reviewed: 3+ Unique test(s) ordered: 3+ Independent interpretation of test from other physician/QHCP Risk: Moderate: Moderate risk from testing/treatment Medical Decision Making Level: 4 - Moderate SIGNATURE: Alexa Matute MD DATE of SERVICE: July 11, 2024 TIME of SERVICE: 12:48 PM documented in this encounter [facility] 09-14-2024 Note HNO ID: [id number] Author: CHAD MARIEE APRN.ELIZABETH Service: ? Author Type: Nurse Practitioner Type: Progress Notes Filed: 09/14/2024 09:22 Note Text: Chief Complaint Patient presents with: Established Patient HPI: Dom Avila is a 69 year old female who presents here today for follow up DCIS. Per Dr. Georges previous note: H/o [id number] diabetes mellitus, hypertension, ASCAD, and TIA who [...] breast lumpectomy for DCIS on 04/08/2021 at [facility] Pathology (from [facility]) reveals - ductal carcinoma in situ...,size of DCIS - 1.0 x 0.4 cm...,architectural type - cribriform..., nuclear grade 1-2..., necrosis - present central (expansive comedo necrosis)..., biopsy cavity is 0.5 cm from closest anterior margin (which is skin)..., ER >95%, LA >95% Postoperative course is unremarkable with no swelling or pain in her lumpectomy site. She is here today to discuss adjuvant therapy and chemoprevention for breast cancer. RADIATION:06/03/21 - 06/24/21 Current therapy:Tamoxifen Began after radiation No new concerns today. Appetite:It's not like it used to be. Wt. down 7# since March. Energy level:Good. Denies fevers or recent illness. Resp:denies cough or sob-follow up by PULM h/o seasonal allergies/sleep apnea-wears CPAP at hs sometimes Cardiac:denies chest pain/occ. palpitations-Followed by cardiology twice yearly GI:denies abd pain, n/v, h/o IBS, occ. constipation/diarrhea-followed by Dr. Alcantar/GI :denies dysuria/hematuria Extrem:denies pain Endo:hot flashes Not bad. 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 Past medical history, appointments, medications, allergies reviewed. No changes. EXAM: BP 155/83 Pulse 72 Temp 36.5 ?C (97.7 ?F) (Temporal) Wt 63.2 kg (139 lb 5.3 oz) SpO2 96% BMI 24.76 kg/m? APPEARANCE Well appearing, alert, in no acute distress, well-hydrated, well nourished. HEART RRR with normal S1 and S2, no murmurs LUNG clear to auscultation BREAST FEMALE no mass/nodule b/l, scar to L upper LYMPH NODES No cervical lymphadenopathy, No supraclavicular lymphadenopathy, and No axillary lymphadenopathy. ABDOMEN bowel sounds normoactive, soft, non-tender EXTREMITIES No edema NEURO Awake, alert and oriented x 3, Normal gait, and No involuntary motions. SKIN Skin color, texture, turgor normal, no suspicious rashes or lesions ASSESSMENT/PLAN: 1. Ductal carcinoma in situ (DCIS) of left breast - ICD9: 233.0, ICD10: D05.12 (primary diagnosis) - No new concerning findings on exam. - Tolerating tamoxifen well. - Continue tamoxifen. 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 - Mammogram due March 2025. - Follow up after above. - Pt. aware to call office with any questions/concerns. The sensitive examination was discussed with the Patient or Patient's Authorized Associate Justice. As applicable, any other physician, advance practice provider, medical student, or other health professional student that will be observing or involved in the sensitive examination for educational or training purposes was discussed with the Patient or Authorized Associate Justice. The Patient or Authorized Associate Justice has agreed to proceed with the sensitive examination. (Sensitive examination includes inspection and/or palpation of the breasts, pelvis, prostate and anorectal regions) The patient indicates understanding of these issues and agrees with the plan. All documentation from previous visit of 03/14/24-Dr. Georges/myself was copied and pasted, documentation has been reviewed and edited as necessary for today's visit. Chad Mariee APRN.[facility] 09-14-2024 History of Present illness Narrative Chief Complaint Patient presents with: Established Patient HPI: Dom Avila is a 69 year old female who presents here today for follow up DCIS. Per Dr. Georges previous note: H/o [id number] diabetes mellitus, hypertension, ASCAD, and TIA who [...] breast lumpectomy for DCIS on 04/08/2021 at [facility] Pathology (from [facility]) reveals - ductal carcinoma in situ...,size of DCIS - 1.0 x 0.4 cm...,architectural type - cribriform..., nuclear grade 1-2..., necrosis - present central (expansive comedo necrosis)..., biopsy cavity is 0.5 cm from closest anterior margin (which is skin)..., ER >95%, LA >95% Postoperative course is unremarkable with no swelling or pain in her lumpectomy site. She is here today to discuss adjuvant therapy and chemoprevention for breast cancer. RADIATION:06/03/21 - 06/24/21 Current therapy:Tamoxifen Began after radiation No new concerns today. Appetite:It's not like it used to be. Wt. down 7# since March. Energy level:Good. Denies fevers or recent illness. Resp:denies cough or sob-follow up by PULM h/o seasonal allergies/sleep apnea-wears CPAP at hs sometimes Cardiac:denies chest pain/occ. palpitations-Followed by cardiology twice yearly GI:denies abd pain, n/v, h/o IBS, occ. constipation/diarrhea-followed by Dr. Alcantar/GI :denies dysuria/hematuria Extrem:denies pain Endo:hot flashes Not bad. 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 2024 The ROS is otherwise negative. Past medical history, appointments, medications, allergies reviewed. No changes. EXAM: BP 155/83 Pulse 72 Temp 36.5 C (97.7 F) (Temporal) Wt 63.2 kg (139 lb 5.3 oz) SpO2 96% BMI 24.76 kg/m APPEARANCE Well appearing, alert, in no acute distress, well-hydrated, well nourished. HEART RRR with normal S1 and S2, no murmurs LUNG clear to auscultation BREAST FEMALE no mass/nodule b/l, scar to L upper LYMPH NODES No cervical lymphadenopathy, No supraclavicular lymphadenopathy, and No axillary lymphadenopathy. ABDOMEN bowel sounds normoactive, soft, non-tender EXTREMITIES No edema NEURO Awake, alert and oriented x 3, Normal gait, and No involuntary motions. SKIN Skin color, texture, turgor normal, no suspicious rashes or lesions ASSESSMENT/PLAN: 1. Ductal carcinoma in situ (DCIS) of left breast - ICD9: 233.0, ICD10: D05.12 (primary diagnosis) - No new concerning findings on exam. - Tolerating tamoxifen well. - Continue tamoxifen. 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 - Mammogram due March 2025. - Follow up after above. - Pt. aware to call office with any questions/concerns. The sensitive examination was discussed with the Patient or Patient's Authorized Associate Justice. As applicable, any other physician, advance practice provider, medical student, or other health professional student that will be observing or involved in the sensitive examination for educational or training purposes was discussed with the Patient or Authorized Associate Justice. The Patient or Authorized Associate Justice has agreed to proceed with the sensitive examination. (Sensitive examination includes inspection and/or palpation of the breasts, pelvis, prostate and anorectal regions) The patient indicates understanding of these issues and agrees with the plan. All documentation from previous visit of 03/14/24-Dr. Georges/myself was copied and pasted, documentation has been reviewed and edited as necessary for today's visit. Chad Mairee APRN.ELIZABETH documented in this encounter [facility] 08-15-2024 History of Present illness Narrative Radiology Service Progress Note PATIENT NAME: Dom Avila DATE OF SERVICE: August 15, 2024 TIME: 11:57 AM PATIENT IDENTITY VERIFICATION COMPLETED USING TWO (2) IDENTIFIERS: Name and Date of confirmed by patient verbally. FALL SCREENING: Has the patient had 2 falls in the last year or 1 fall with injury or currently using an Ambulatory Assistive Device (Walker, Cane, Wheelchair, Crutches, etc.)? No PATIENT GENDER DATA: Female. status: : No status: NO. PATIENT RELEVANT IMPLANT DATA REVIEWED: Yes PATIENT PRESENTS WITH AN IMPLANTABLE OR ATTACHED HOT END OPERATOR: No RADIOLOGY DEPARTMENT: CT; Exam(s) Completed: Adrenal PERIPHERAL IV DATA: Not applicable SIGNED BY: RT Susie(Sunil) August 15, 2024 11:57 AM documented in this encounter [facility] 08-15-2024 Note HNO ID: [id number] Author: LAURA RIVAS RT(Sunil) Service: ? Author Type: Loom Setter Fourdrinier Type: Progress Notes Filed: 08/15/2024 11:57 Note Text: Radiology Service Progress Note PATIENT NAME: Dom Avila DATE OF SERVICE: August 15, 2024 TIME: 11:57 AM PATIENT IDENTITY VERIFICATION COMPLETED USING TWO (2) IDENTIFIERS: Name and Date of confirmed by patient verbally. FALL SCREENING: Has the patient had 2 falls in the last year or 1 fall with injury or currently using an Ambulatory Assistive Device (Walker, Cane, Wheelchair, Crutches, etc.)? No PATIENT GENDER DATA: Female. status: : No status: NO. PATIENT RELEVANT IMPLANT DATA REVIEWED: Yes PATIENT PRESENTS WITH AN IMPLANTABLE OR ATTACHED HOT END OPERATOR: No RADIOLOGY DEPARTMENT: CT; Exam(s) Completed: Adrenal PERIPHERAL IV DATA: Not applicable SIGNED BY: RT Susie(R) August 15, 2024 11:57 AM [facility] 08-04-2024 Instructions Ori Lord DO - 08/04/2024 10:54 AM EDT CYSTOSCOPY The following instructions will help you know what to expect in the days following your procedure. Do not, however, hesitate to call if you have any questions or concerns. Procedure: You have undergone a cystoscopy procedure where a telescope was inserted into your bladder through your urethra Activities Resume usual activity Diet Resume your regular diet as tolerated. Maintain adequate fluid intake Avoid/Reduce: Caffeine!! It is a bladder irritant that causes frequent urination. Be on the alert for caffeine in the following products: Soft drinks, coffee, tea, chocolate, ice creams, puddings, candies, headache and pain relieving medications (Anacin , Excedrin , Vanquish , Midal , Darvon ), cold and allergy medications (Dristan , Coryban-D , Sinarest ), stimulants (No Doz , Vivarin , Dexatrim ). Intake of liquor, beer, wine (they cause urgency). What to Expect Blood in your urine - this is common and will improve Mild burning with urination When to present to the office/ER (ER after hours), if you: Have a fever above 100 degrees. Are unable to urinate. Pass large clots when you urinate. Have urine that becomes dark red bloody and does not clear with increased fluid intake. Have any increased pain, shortness of breath, chest pain, abnormal coughing, or any severe nausea and vomiting, unrelieved by rest or medications. documented in this encounter [facility] 08-04-2024 Note HNO ID: [id number] Author: ORI LORD DO Service: ? Author Type: Physician Type: Procedures Filed: 08/11/2024 19:05 Note Text: CYSTOSCOPY , STENT REMOVAL PROCEDURE NOTE: Dom Avila is a 69 year old female who presents for a cystoscopy and stent removal. Pt ID verified with patient: Yes Procedure verified with patient: Yes Procedure confirmed with physician and patient support representative: Yes Fire Safety Check List Reviewed: Yes A urinalysis was performed and revealed normal results. Pre-procedure Diagnosis: mixed incontinence and hematuria micro Post-procedure Diagnosis: Same as above Preprocedure antibiotics: Levaquin 500mg UNIVERSAL PROTOCOL / SAFETY CHECKLIST Procedure to be Performed: cysto Sign In: A Moment of CARE was completed. Personnel directly involved with the procedure wore the appropriate PPE (Personal Protective Equipment). Patient/Surrogate Stated/Verified: PATIENT VERIFIED(optional for EMERGENT procedures): Patient name, Date of , Relevant allergies, and The intended procedure Time Out Communication: Intended patient and procedure match the source documents. Consent documented and matches the intended procedure. Sign Out: SIGN OUT (optional for EMERGENT procedures): No specimen collected. All instruments, equipment, possible retained foreign bodies accounted for. Ori Lord DO The benefits, risks, alternatives of the cystoscopy procedure and personnel were discussed with the patient. The verbal consent was obtained and the patient agrees to proceed. Procedure: The patient was placed on the procedure table in the supine position and prepped and draped in the usual sterile fashion. The tip of the flexible cystoscope was carefully placed into the urethra under direct visual guidance. The scope was negotiated per urethra with no evidence of stricture into the bladder. Careful stacy endoscopy was carried out. The posterior, superior and lateral olmstead and dome of the bladder were all well visualized and the scope was retroflexed upon itself; the UOs were in orthotopic position. The findings were consistent with no evidence of bladder mucosal pathology (no trabeculations, cellules, masses, lesions, foreign bodies, etc). At the conclusion of the procedure, the Flexible cystoscope was removed atraumatically. The patient tolerated the procedure without complications. Patient was given standard post-procedure instructions, and was directed to increase oral fluid intake as directed. A brusher tender Nicole Madsen was present for the entire visit including examination/procedure. [facility] 08-04-2024 Procedure note CYSTOSCOPY , STENT REMOVAL PROCEDURE NOTE: Dom Avila is a 69 year old female who presents for a cystoscopy and stent removal. Pt ID verified with patient: Yes Procedure verified with patient: Yes Procedure confirmed with physician and patient support representative: Yes Fire Safety Check List Reviewed: Yes A urinalysis was performed and revealed normal results. Pre-procedure Diagnosis: mixed incontinence and hematuria micro Post-procedure Diagnosis: Same as above Preprocedure antibiotics: Levaquin 500mg UNIVERSAL PROTOCOL / SAFETY CHECKLIST Procedure to be Performed: cysto Sign In: A Moment of CARE was completed. Personnel directly involved with the procedure wore the appropriate PPE (Personal Protective Equipment). Patient/Surrogate Stated/Verified: PATIENT VERIFIED(optional for EMERGENT procedures): Patient name, Date of , Relevant allergies, and The intended procedure Time Out Communication: Intended patient and procedure match the source documents. Consent documented and matches the intended procedure. Sign Out: SIGN OUT (optional for EMERGENT procedures): No specimen collected. All instruments, equipment, possible retained foreign bodies accounted for. Ori Lord DO The benefits, risks, alternatives of the cystoscopy procedure and personnel were discussed with the patient. The verbal consent was obtained and the patient agrees to proceed. Procedure: The patient was placed on the procedure table in the supine position and prepped and draped in the usual sterile fashion. The tip of the flexible cystoscope was carefully placed into the urethra under direct visual guidance. The scope was negotiated per urethra with no evidence of stricture into the bladder. Careful stacy endoscopy was carried out. The posterior, superior and lateral olmstead and dome of the bladder were all well visualized and the scope was retroflexed upon itself; the UOs were in orthotopic position. The findings were consistent with no evidence of bladder mucosal pathology (no trabeculations, cellules, masses, lesions, foreign bodies, etc). At the conclusion of the procedure, the Flexible cystoscope was removed atraumatically. The patient tolerated the procedure without complications. Patient was given standard post-procedure instructions, and was directed to increase oral fluid intake as directed. A brusher tender Nicole Madsen was present for the entire visit including examination/procedure. [facility] 08-04-2024 Note HNO ID: [id number] Author: ORI LORD DO Service: ? Author Type: Physician Type: Progress Notes Filed: 08/11/2024 19:05 Note Text: [facility] ESTABLISHED PATIENT NOTE/HISTORY AND PHYSICAL PATIENT: Dom Avila (69 year old) PCP: Clifton Hung MD DATE OF SERVICE: 08/04/2024 SUBJECTIVE: CHIEF COMPLAINT: Follow Up (1 month cystoscopy.) HISTORY OF PRESENT ILLNESS: The patient was last seen by Ori Lord DO on 07/04/24 . Prior notes were reviewed. Patient returns today for follow up and cysto . In interim doing ok , has no new complaints . 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 ([facility]) (01/09/2017), Graibay's cyst of knee, left (03/02/2018), Breast neoplasm, Tis (DCIS), 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), CAD (coronary artery disease), Cataract, Colon polyp (2011), Controlled type 2 diabetes mellitus without complication, without long-term current use of insulin ([facility]) (10/22/2016), De Quervain's tenosynovitis, left (07/31/2019), Diabetic eye exam ([facility]) (01/16/2016), 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), 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), Encounter for Medicare annual wellness exam (04/08/2023), Essential hypertension (01/16/2016),Female pattern hair loss, Foot callus (05/26/2021), History of colon polyps, History of depression, History of hyperparathyroidism, History of transient ischemic attack (TIA) (10/29/2017), Irritable bowel syndrome with diarrhea (05/26/2021), Living will on file at physician's office (04/08/2023), Meniere disease, right (10/29/2017), Mixed hyperlipidemia (05/31/2009), Narcolepsy without cataplexy (01/16/2016), Obstructive sleep apnea on CPAP, Pancreatic insufficiency (04/08/2023), Psoriasis, RLS (restless legs syndrome) (02/22/2023), Rosacea, S/P angioplasty with stent (01/09/2017), Scalp itch, Seasonal allergies, Vitamin D deficiency (2012), and Well adult exam (01/16/2016). Past Surgical History: -Patient has a past surgical history that includes cholecystectomy (2004); past surgical history of (2004); total abdominal hysterect w/wo rmvl tube ovary (1995); past surgical history of; heart catheterization (2004); past surgical history of (10/2006); delivery only; low back disk surgery (2009); bunionectomy, lapidus-type (2009); colonoscopy AND polypectomy (10/12, 10/13); colonoscopy (08/07/2015); past surgical history of (2014); heart catheterization (01/04/2017); 2d echo (exep) (06/30/2017); stent placement (01/06/2017); stress test (04/20/2017); past surgical history of (Right, 10/2016); heart surgery hx (12/2016); colonoscopy flx dx w/collj spec when pfrmd (08/09/2018); esophagogastroduodenoscopy transoral diagnostic (08/09/2018); heart catheterization (10/2018); bx breast w/device 1st lesion stereotactic guid (Left, 03/25/2021); mastectomy, partial (Left, 04/08/2021); breast lumpectomy hx (Left, 04/08/2021); 2d echo (exep) (05/14/2021); 2d echo (exep) (09/16/2021); and repair, detached retina, laser (Right). Medications: -Patient has a current medication list which includes the following prescription(s): OTC NUTRITIONAL SUPPLEMENT, pioglitazone, omeprazole, doxycycline, coenzyme q10, feyoai-wvodivtv-ehwzvgg, lisinopril, estradiol, tamoxifen, calcium citrate-vitamin d3, ezetimibe, metformin, ammonium lactate, clobetasol propionate, acetaminophen, nitroglycerin sublingual, ketoconazole, montelukast, metoprolol succinate er, lactobacillus acidophilus, CPAP, and prevalite. Allergies: -Patient is allergic to brilinta [ticagrelor], crestor [rosuvastatin], keflex [cephalexin], lipitor [atorvastatin], lovastatin, and norco [hydrocodone-acetaminophen]. Family History: -Patient family history includes Coronary Artery Disease (age of onset: 25) in her father; Diabetes in her father, maternal grandfather, and paternal grandmother; Lung cancer in her brother; Pancreatic cancer in her mother; suicide in her son. Social History: -Patient reports that she quit smoking about 29 years ago. Her smoking use included cigarettes. She started smoking about 32 years ago. She has a 4.5 pack-year smoking history. She has never used smokeless tobacco. She reports that she does not drink alcohol and does not use drugs. I have confirmed and edited as necessary, the PFSH and ROS obtained by others. OBJECTIVE: PHYSICAL EXAMINATI (more content not included)... [facility] 08-04-2024 History of Present illness Narrative Images from the original note were not included. [facility] ESTABLISHED PATIENT NOTE/HISTORY AND PHYSICAL PATIENT: Dom Avila (69 year old) PCP: Clifton Hung MD DATE OF SERVICE: 08/04/2024 SUBJECTIVE: CHIEF COMPLAINT: Follow Up (1 month cystoscopy.) HISTORY OF PRESENT ILLNESS: The patient was last seen by Ori Lord DO on 07/04/24 . Prior notes were reviewed. Patient returns today for follow up and cysto . In interim doing ok , has no new complaints . 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 (HCC) (01/09/2017), Garibay's cyst of knee, left (03/02/2018), Breast neoplasm, Tis (DCIS), 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), CAD (coronary artery disease), Cataract, Colon polyp (2011), Controlled type 2 diabetes mellitus without complication, without long-term current use of insulin ([facility]) (10/22/2016), De Quervain's tenosynovitis, left (07/31/2019), Diabetic eye exam ([facility]) (01/16/2016), 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), 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), Encounter for Medicare annual wellness exam (04/08/2023), Essential hypertension (01/16/2016), Female pattern hair loss, Foot callus (05/26/2021), History of colon polyps, History of depression, History of hyperparathyroidism, History of transient ischemic attack (TIA) (10/29/2017), Irritable bowel syndrome with diarrhea (05/26/2021), Living will on file at physician's office (04/08/2023), Meniere disease, right (10/29/2017), Mixed hyperlipidemia (05/31/2009), Narcolepsy without cataplexy (01/16/2016), Obstructive sleep apnea on CPAP, Pancreatic insufficiency (04/08/2023), Psoriasis, RLS (restless legs syndrome) (02/22/2023), Rosacea, S/P angioplasty with stent (01/09/2017), Scalp itch, Seasonal allergies, Vitamin D deficiency (2012), and Well adult exam (01/16/2016). Past Surgical History: -Patient has a past surgical history that includes cholecystectomy (2004); past surgical history of (2004); total abdominal hysterect w/wo rmvl tube ovary (1995); past surgical history of; heart catheterization (2004); past surgical history of (10/2006); delivery only; low back disk surgery (2009); bunionectomy, lapidus-type (2009); colonoscopy & polypectomy (10/12, 10/13); colonoscopy (08/07/2015); past surgical history of (2014); heart catheterization (01/04/2017); 2d echo (exep) (06/30/2017); stent placement (01/06/2017); stress test (04/20/2017); past surgical history of (Right, 10/2016); heart surgery hx (12/2016); colonoscopy flx dx w/collj spec when pfrmd (08/09/2018); esophagogastroduodenoscopy transoral diagnostic (08/09/2018); heart catheterization (10/2018); bx breast w/device 1st lesion stereotactic guid (Left, 03/25/2021); mastectomy, partial (Left, 04/08/2021); breast lumpectomy hx (Left, 04/08/2021); 2d echo (exep) (05/14/2021); 2d echo (exep) (09/16/2021); and repair, detached retina, laser (Right). Medications: -Patient has a current medication list which includes the following prescription(s): OTC NUTRITIONAL SUPPLEMENT, pioglitazone, omeprazole, doxycycline, coenzyme q10, wyexdr-bfurmsii-vcwetxt, lisinopril, estradiol, tamoxifen, calcium citrate-vitamin d3, ezetimibe, metformin, ammonium lactate, clobetasol propionate, acetaminophen, nitroglycerin sublingual, ketoconazole, montelukast, metoprolol succinate er, lactobacillus acidophilus, CPAP, and prevalite. Allergies: -Patient is allergic to brilinta [ticagrelor], crestor [rosuvastatin], keflex [cephalexin], lipitor [atorvastatin], lovastatin, and norco [hydrocodone-acetaminophen]. Family History: -Patient family history includes Coronary Artery Disease (age of onset: 25) in her father; Diabetes in her father, maternal grandfather, and paternal grandmother; Lung cancer in her brother; Pancreatic cancer in her mother; suicide in her son. Social History: -Patient reports that she quit smoking about 29 years ago. Her smoking use included cigarettes. She started smoking about 32 years ago. She has a 4.5 pack-year smoking history. She has never used smokeless tobacco. She reports that she does not drink alcohol and does not use drugs. I have confirmed and edited as necessary, the PFSH and ROS obtained by others. OBJECTIVE: PHYSICAL EXAMINATION: BP 145/80 Pulse 63 Wt 63 kg (139 lb) SpO2 99% BMI 24.70 kg/m Constitutional: Well-developed, well-nourished. No acute distress. Psych: Normal mood and affect. Memory intact. Eyes: Lids appear normal. Conjunctivae are not injected. ENMT: External ears are normal. Hearing is grossly normal. Respiratory: Normal respiratory effort, no acute respiratory distress. No audible wheeze. Skin: Warm and dry. No visible rashes. Musculoskeletal: Ambulatory: Yes : No [place] DATA: Clinic: Urine dipstick shows: URINALYSIS: GLUCOSE UA (POCT) Negative 08/04/2024 BILIRUBIN UA (POCT) Negative 08/04/2024 KETONE UA (POCT) Negative 08/04/2024 SPECIFIC GRAVITY UA (POCT) 1.020 08/04/2024 HEMOGLOBIN/BLOOD UA (POCT) Negative 08/04/2024 PH UA (POCT) 6.0 08/04/2024 PROTEIN UA (POCT) Negative 08/04/2024 UROBILINOGEN UA (POCT) 0.2 08/04/2024 NITRITE UA (POCT) Negative 08/04/2024 LEUKOCYTES UA (POCT) Small 08/04/2024 COLOR UA (POCT) Yellow 08/04/2024 CLARITY UA (POCT) Clear 08/04/2024 Laboratory: Creatinine Date Value Ref Range Status 04/17/2024 0.78 0.58 - 0.96 mg/dL Final 04/02/2023 0.87 0.58 - 0.96 mg/dL Final 01/07/2023 0.78 0.58 - 0.96 mg/dL Final 11/25/2022 0.76 0.58 - 0.96 mg/dL Final Cultures: Culture Results - Past 1 Year Culture 11/23/2023 10,000 -<50,000 CFU/ml Escherichia coli 01/18/2024 10,000 -<50,000 CFU/ml Normal urogenital holland 04/19/2024 <10,000 CFU/ml Normal urogenital holland 04/25/2024 10,000 -<50,000 CFU/ml Normal urogenital holland Susceptibility Tests - Past 1 Year Collected Organism Ampicillin Ampicillin/Sulbact Cefazolin Cefepime Ceftriaxone Ciprofloxacin Ertapenem Gentamicin Meropenem Nitrofurantoin Piperacillin/Tazobac Tobramycin Trimeth sulfameth 11/23/23 Escherichia coli R S S S S R S S S S S S S 01/18/24 Normal urogenital holland 04/19/24 Normal urogenital holland 04/25/24 Normal urogenital holland ASSESSMENT AND PLAN Dom Avila is 69 year old with: (N39.46) Urinary incontinence, mixed (primary encounter diagnosis) (R31.29) Microscopic hematuria (N95.8) Genitourinary syndrome of menopause (Z87.440) History of UTI 69 yo F w/mult chronic urologic conditions: NELL (prev bothersome but improved significantly after d/c coffee), Micro heme (cysto today completes w/u and negative (CT no stone or renal mass), Adrenal adenoma f/u w/endocrine, GSM (Estrace per other provider), h/o UTI 11/2023 E Coli Plan: F/u 6m Conservative mgmt for NLEL Cont to f/u endocrine re: R adrenal adenoma -Patient will call the clinic or use MyChart should anything change or any new issues arise -All questions were answered Ori Lord DO Staff Urologist Please note: This note has been produced using speech recognition software and may contain errors related to that system including grammar, punctuation, spelling, gender and words and phrases that may be inappropriate. documented in this encounter [facility] 08-04-2024 Procedure note CYSTOSCOPY , STENT REMOVAL PROCEDURE NOTE: Dom Avila is a 69 year old female who presents for a cystoscopy and stent removal. Pt ID verified with patient: Yes Procedure verified with patient: Yes Procedure confirmed with physician and patient support representative: Yes Fire Safety Check List Reviewed: Yes A urinalysis was performed and revealed normal results. Pre-procedure Diagnosis: mixed incontinence and hematuria micro Post-procedure Diagnosis: Same as above Preprocedure antibiotics: Levaquin 500mg UNIVERSAL PROTOCOL / SAFETY CHECKLIST Procedure to be Performed: cysto Sign In: A Moment of CARE was completed. Personnel directly involved with the procedure wore the appropriate PPE (Personal Protective Equipment). Patient/Surrogate Stated/Verified: PATIENT VERIFIED(optional for EMERGENT procedures): Patient name, Date of , Relevant allergies, and The intended procedure Time Out Communication: Intended patient and procedure match the source documents. Consent documented and matches the intended procedure. Sign Out: SIGN OUT (optional for EMERGENT procedures): No specimen collected. All instruments, equipment, possible retained foreign bodies accounted for. Ori Lord DO The benefits, risks, alternatives of the cystoscopy procedure and personnel were discussed with the patient. The verbal consent was obtained and the patient agrees to proceed. Procedure: The patient was placed on the procedure table in the supine position and prepped and draped in the usual sterile fashion. The tip of the flexible cystoscope was carefully placed into the urethra under direct visual guidance. The scope was negotiated per urethra with no evidence of stricture into the bladder. Careful stacy endoscopy was carried out. The posterior, superior and lateral olmstead and dome of the bladder were all well visualized and the scope was retroflexed upon itself; the UOs were in orthotopic position. The findings were consistent with no evidence of bladder mucosal pathology (no trabeculations, cellules, masses, lesions, foreign bodies, etc). At the conclusion of the procedure, the Flexible cystoscope was removed atraumatically. The patient tolerated the procedure without complications. Patient was given standard post-procedure instructions, and was directed to increase oral fluid intake as directed. A brusher tender Nicole Madsen was present for the entire visit including examination/procedure. documented in this encounter [facility] 08-02-2024 Telephone encounter Note The following approved medication requests have been transmitted electronically. Requested Prescriptions Signed Prescriptions Disp Refills pioglitazone (ACTOS) 15 mg tablet 90 tablet 1 Sig: Take 1 tablet by mouth once daily. Authorizing Provider: CLIFTON HUNG MD [facility] 08-02-2024 Miscellaneous Notes The following approved medication requests have been transmitted electronically. Requested Prescriptions Signed Prescriptions Disp Refills pioglitazone (ACTOS) 15 mg tablet 90 tablet 1 Sig: Take 1 tablet by mouth once daily. Authorizing Provider: CLIFTON HUNG MD Prescription Refill Information The patient has been identified by name and date of : Yes Caregiver verified no other encounters exist for this prescription request: Yes Caregiver confirmed with patient/requestor that no other refills are due, in the near future, with this provider at this time: Yes The last office visit in the department: 04/17/24 Does the patient have a future office visit with this provider/department: Yes, 10/18/24 Requested Prescriptions Pending Prescriptions Disp Refills pioglitazone (ACTOS) 15 mg tablet 90 tablet 1 Sig: Take 1 tablet by mouth once daily. Delmer Valdes LPN August 02, 2024 1:27 PM documented in this encounter [facility] 08-02-2024 Telephone encounter Note Prescription Refill Information The patient has been identified by name and date of : Yes Caregiver verified no other encounters exist for this prescription request: Yes Caregiver confirmed with patient/requestor that no other refills are due, in the near future, with this provider at this time: Yes The last office visit in the department: 04/17/24 Does the patient have a future office visit with this provider/department: Yes, 10/18/24 Requested Prescriptions Pending Prescriptions Disp Refills pioglitazone (ACTOS) 15 mg tablet 90 tablet 1 Sig: Take 1 tablet by mouth once daily. Delmer Valdes LPN August 02, 2024 1:27 PM [facility] 07-17-2024 Telephone encounter Note The following approved medication requests have been transmitted electronically. Requested Prescriptions Signed Prescriptions Disp Refills omeprazole (PRILOSEC) 40 mg capsule 30 capsule 5 Sig: Take 1 capsule by mouth once daily. Authorizing Provider: CLIFTON HUNG MD [facility] 07-17-2024 Miscellaneous Notes The following approved medication requests have been transmitted electronically. Requested Prescriptions Signed Prescriptions Disp Refills omeprazole (PRILOSEC) 40 mg capsule 30 capsule 5 Sig: Take 1 capsule by mouth once daily. Authorizing Provider: CLIFTON HUNG MD Prescription Refill Information The patient has been identified by name and date of : Yes Caregiver verified no other encounters exist for this prescription request: Yes Caregiver confirmed with patient/requestor that no other refills are due, in the near future, with this provider at this time: Yes The last office visit in the department: 04/17/24 Does the patient have a future office visit with this provider/department: Yes Requested Prescriptions Pending Prescriptions Disp Refills omeprazole (PRILOSEC) 40 mg capsule 30 capsule 5 Sig: Take 1 capsule by mouth once daily. Paula Nunez LPN July 17, 2024 1:22 PM documented in this encounter [facility] 07-17-2024 Telephone encounter Note Prescription Refill Information The patient has been identified by name and date of : Yes Caregiver verified no other encounters exist for this prescription request: Yes Caregiver confirmed with patient/requestor that no other refills are due, in the near future, with this provider at this time: Yes The last office visit in the department: 04/17/24 Does the patient have a future office visit with this provider/department: Yes Requested Prescriptions Pending Prescriptions Disp Refills omeprazole (PRILOSEC) 40 mg capsule 30 capsule 5 Sig: Take 1 capsule by mouth once daily. Paula Nunez LPN July 17, 2024 1:22 PM [facility] 07-11-2024 Alexa Horton MD - 07/11/2024 1:33 PM EDT Please hold metformin for 2 days before the imaging for CT with contrast documented in this encounter [facility] 07-11-2024 Note HNO ID: [id number] Author: ALEXA MATUTE MD Service: ? Author Type: Physician Type: Progress Notes Filed: 07/11/2024 14:04 Note Text: [facility] Initial Clinic Visit Note History of Present Illness: Ms. Dom Avila is a 68 year old female coming today for evaluation of adrenal nodule Patient referred by: Ori Lord DO (Urology) She was seeing urology for UTIs, which first started 1-1.5 years ago. She has had atleast 2 or 3 within 1 year. She thinks she is not having any UTIs since last fall Patient Also described the following: Lost weight due to low appetite Has palpitations intermittently and was diagnosed to have PVCs Denied, Skin stretch benton, easy bruising, excess hair growth over face/chin/chest/or abdomen, voice hoarseness, difficulty raising arms overhead, difficulty getting up from a seated position Headache, Flushing, sweating, Chest pain, Tremors Episodes of Headache, Sweating, palpitations or tremor: No Previous use of Steroids, oral, inhalers, injections: short term use Past Medical History: PAST MEDICAL HISTORY 04/08/2023: Advance directive discussed with patient Comment: Discussed 03/2023: Up to date 10/29/2017: Amaurosis fugax Comment: TIA; right visual disturbance 06/2017 No date: Arthritis Comment: tendonitis, arthritis 01/09/2017: 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 Gomez 03/02/2018: Garibay's cyst of knee, left 03/2021: Breast neoplasm, Tis (DCIS), left No date: CAD (coronary artery disease) No date: Cataract 2012: Colon polyp 10/22/2016: Controlled type 2 diabetes mellitus without complication, without long-term current use of insulin (HCC) 07/31/2019: De Quervain's tenosynovitis, left 01/16/2016: Diabetic eye exam (HCC) Comment: Lat done: 12/03/2017 No retinopathy 05/26/2021: Ductal carcinoma in situ (DCIS) of left breast 04/2021: Ductal carcinoma in situ of left breast 04/08/2023: Encounter for Medicare annual wellness exam Comment: Medicare Part B: 07/09/2022 Last done: 04/08/2023 01/16/2016: Essential hypertension No date: Female pattern hair loss 05/26/2021: Foot callus No date: History of colon polyps No date: History of depression Comment: when No date: History of hyperparathyroidism 10/29/2017: History of transient ischemic attack (TIA) Comment: 06/29/2017 - R homonomous hemianopia with aphasia for couple hours - negative MRI/A following day 05/26/2021: Irritable bowel syndrome with diarrhea 04/08/2023: Living will on file at physician's office Comment: DPA: Carmella () 10/29/2017: Meniere disease, right 05/31/2009: Mixed hyperlipidemia Comment: statin intolerance 01/16/2016: Narcolepsy without cataplexy Comment: Especially with long drives. Has been on provigil for 5-10 yrs No date: Obstructive sleep apnea on CPAP Comment: Sibilia 04/08/2023: Pancreatic insufficiency Comment: Seeing Dr. Alcantar No date: Psoriasis 02/22/2023: RLS (restless legs syndrome) Comment: Seeing Dr. Olmstead No date: Rosacea Comment: with ocular symptoms 01/09/2017: S/P angioplasty with stent Comment: stents to mid and proximal left anterior descending Art, and angio of ostium of #2 diagonal No date: Scalp itch No date: Seasonal allergies Comment: Dr Pompa 2013: Vitamin D deficiency 01/16/2016: Well adult exam Comment: Last done: 09/08/2018 Surgical History: PAST SURGICAL HISTORY 06/30/2017: 2D ECHO (EXEP) Comment: EF=65%, trivial CT, TI and 1+ PI Unchanged from 04/201705/14/2021: 2D ECHO (EXEP) Comment: EF=60%, 1+ TI, trival CT, AI, PI 09/16/2021: 2D ECHO (EXEP) Comment: EF=60%, no significant valve disease 04/08/2021: BREAST LUMPECTOMY HX; Left Comment: 2010: BUNIONECTOMY, LAPIDUS-TYPE Comment: left great toe 03/25/2021: BX BREAST W/DEVICE 1ST LESION STEREOTACTIC GUID; Left No date: DELIVERY ONLY 2005: CHOLECYSTECTOMY Comment: Cholecystectomy 08/07/2015: COLONOSCOPY Comment: no polyps, recheck 3-5 yrs 10/12, 10/13: COLONOSCOPY AND POLYPECTOMY Comment: Dr Avila; hyperplastic polyps 08/09/2018: COLONOSCOPY FLX DX W/COLLJ SPEC WHEN PFRMD Comment: Colonoscopy 08/09/2018: ESOPHAGOGASTRODUODENOSCOPY TRANSORAL DIAGNOSTIC Comment: EGD 2004: HEART CATHETERIZATION Comment: heart cath-normal per patient 01/04/2017: HEART CATHETERIZATION Comment: EF=60%, left anterior desending septal perferator 95-99% stenosis and diagonal branch 85% stenosis, 10/2018: HEART CATHETERIZATION 12/2016: HEART SURGERY HX Comment: Cardiac stents x 2 2009: LOW BACK DISK SURGERY Comment: microdecompression L4 L5 04/08/2021: MASTECTOMY, PARTIAL; Left 2005: PAST SURGICAL HISTORY OF Comment: parathyroidectomy x1 No date: PAST SURGICAL HISTORY OF Comment: lipoma x2 10/2006: PAST SURGICAL HISTORY OF Comment: left foot surgery (bone cyst in heel, removed) 2015: PAS (more content not included)... [facility] 07-11-2024 History of Present illness Narrative [facility] Initial Clinic Visit Note History of Present Illness: Ms. Dom Avila is a 68 year old female coming today for evaluation of adrenal nodule Patient referred by: Ori Lord DO (Urology) She was seeing urology for UTIs, which first started 1-1.5 years ago. She has had atleast 2 or 3 within 1 year. She thinks she is not having any UTIs since last fall Patient Also described the following: Lost weight due to low appetite Has palpitations intermittently and was diagnosed to have PVCs Denied, Skin stretch benton, easy bruising, excess hair growth over face/chin/chest/or abdomen, voice hoarseness, difficulty raising arms overhead, difficulty getting up from a seated position Headache, Flushing, sweating, Chest pain, Tremors Episodes of Headache, Sweating, palpitations or tremor: No Previous use of Steroids, oral, inhalers, injections: short term use Past Medical History: PAST MEDICAL HISTORY 04/08/2023: Advance directive discussed with patient Comment: Discussed 03/2023: Up to date 10/29/2017: Amaurosis fugax Comment: TIA; right visual disturbance 06/2017 No date: Arthritis Comment: tendonitis, arthritis 01/09/2017: 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 Gomez 03/02/2018: Garibay's cyst of knee, left 03/2021: Breast neoplasm, Tis (DCIS), left No date: CAD (coronary artery disease) No date: Cataract 2011: Colon polyp 10/22/2016: Controlled type 2 diabetes mellitus without complication, without long-term current use of insulin ([facility]) 07/31/2019: De Quervain's tenosynovitis, left 01/16/2016: Diabetic eye exam ([facility]) Comment: Lat done: 12/03/2017 No retinopathy 05/26/2021: Ductal carcinoma in situ (DCIS) of left breast 04/2021: Ductal carcinoma in situ of left breast 04/08/2023: Encounter for Medicare annual wellness exam Comment: Medicare Part B: 07/09/2022 Last done: 04/08/2023 01/16/2016: Essential hypertension No date: Female pattern hair loss 05/26/2021: Foot callus No date: History of colon polyps No date: History of depression Comment: when No date: History of hyperparathyroidism 10/29/2017: History of transient ischemic attack (TIA) Comment: 06/29/2017 - R homonomous hemianopia with aphasia for couple hours - negative MRI/A following day 05/26/2021: Irritable bowel syndrome with diarrhea 04/08/2023: Living will on file at physician's office Comment: DPA: Carmella () 10/29/2017: Meniere disease, right 05/31/2009: Mixed hyperlipidemia Comment: statin intolerance 01/16/2016: Narcolepsy without cataplexy Comment: Especially with long drives. Has been on provigil for 5-10 yrs No date: Obstructive sleep apnea on CPAP Comment: Leighton 04/08/2023: Pancreatic insufficiency Comment: Seeing Dr. Alcantar No date: Psoriasis 02/22/2023: RLS (restless legs syndrome) Comment: Seeing Dr. Olmstead No date: Rosacea Comment: with ocular symptoms 01/09/2017: S/P angioplasty with stent Comment: stents to mid and proximal left anterior descending Art, and angio of ostium of #2 diagonal No date: Scalp itch No date: Seasonal allergies Comment: Dr Pompa 2012: Vitamin D deficiency 01/16/2016: Well adult exam Comment: Last done: 09/08/2018 Surgical History: PAST SURGICAL HISTORY 06/30/2017: 2D ECHO (EXEP) Comment: EF=65%, trivial CT, TI and 1+ PI Unchanged from 04/201705/14/2021: 2D ECHO (EXEP) Comment: EF=60%, 1+ TI, trival CT, AI, PI 09/16/2021: 2D ECHO (EXEP) Comment: EF=60%, no significant valve disease 04/08/2021: BREAST LUMPECTOMY HX; Left Comment: 2009: BUNIONECTOMY, LAPIDUS-TYPE Comment: left great toe 03/25/2021: BX BREAST W/DEVICE 1ST LESION STEREOTACTIC GUID; Left No date: DELIVERY ONLY 2004: CHOLECYSTECTOMY Comment: Cholecystectomy 08/07/2015: COLONOSCOPY Comment: no polyps, recheck 3-5 yrs 10/12, 10/13: COLONOSCOPY & POLYPECTOMY Comment: Dr Avila; hyperplastic polyps 08/09/2018: COLONOSCOPY FLX DX W/COLLJ SPEC WHEN PFRMD Comment: Colonoscopy 08/09/2018: ESOPHAGOGASTRODUODENOSCOPY TRANSORAL DIAGNOSTIC Comment: EGD 2004: HEART CATHETERIZATION Comment: heart cath-normal per patient 01/04/2017: HEART CATHETERIZATION Comment: EF=60%, left anterior desending septal perferator 95-99% stenosis and diagonal branch 85% stenosis, 10/2018: HEART CATHETERIZATION 12/2016: HEART SURGERY HX Comment: Cardiac stents x 2 2009: LOW BACK DISK SURGERY Comment: microdecompression L4 L5 04/08/2021: MASTECTOMY, PARTIAL; Left 2004: PAST SURGICAL HISTORY OF Comment: parathyroidectomy x1 No date: PAST SURGICAL HISTORY OF Comment: lipoma x2 10/2006: PAST SURGICAL HISTORY OF Comment: left foot surgery (bone cyst in heel, removed) 2015: PAST SURGICAL HISTORY OF Comment: bilateral carpel tunnel 10/2016: PAST SURGICAL HISTORY OF; Right Comment: trigger finger release x2 No date: REPAIR, DETACHED RETINA, LASER; Right Comment: summer 202201/06/2017: STENT PLACEMENT Comment: stents to mid and proximal left anterior descending Art, and angio of ostium of #2 diagonal 04/20/2017: STRESS TEST Comment: WNL 1995: TOTAL ABDOMINAL HYSTERECT W/WO RMVL TUBE OVARY Comment: LEDA for benign fibroid, ovaries intact Family Medical History: FAMILY HISTORY Problem Relation Age of Onset other (Pancreatic cancer) Mother Coronary Artery Disease Father [address] @ 25. CABG Diabetes Father Diabetes Paternal Grandmother Diabetes Maternal Grandfather other (Lung cancer) Brother other (suicide) Son may of been depression Social History: Social History Tobacco Use Smoking status: Former Current packs/day: 0.00 Average packs/day: 1.5 packs/day for 3.0 years (4.5 ttl pk-yrs) Types: Cigarettes Start date: 11/08/1991 Quit date: 11/08/1994 Years since quittin.6 Smokeless tobacco: Never Tobacco comments: smoked 3 years in mid 90s Vaping Use Vaping status: Never Used Substance Use Topics Alcohol use: No Drug use: No Allergies: ALLERGIES Allergen Reactions Brilinta [Ticagrelo* Shortness of Breath Crestor [Rosuvastat* Myalgia Keflex [Cephalexin] Other: See Comments facial flushing Lipitor [Atorvastat* Other: See Comments myalgia Lovastatin Other: See Comments myalgia Hughes [Hydrocodone-* Itching Current medications: Current Outpatient Medications Medication Sig PREVALITE 4 gram packet DISSOLVE ONE PACKET IN LIQUID AND DRINK BY MOUTH TWICE DAILY WITH FOOD. AVOID OTHER MEDICATIONS WITHIN 1 HOUR BEFORE OR 4-6 HOURS AFTER DOSE doxycycline (VIBRA-TABS) 100 mg tablet Take 200 mg by mouth one time only. coenzyme Q10 (COENZYME Q-10) 100 mg cap capsule Ubidecarenone Active 100 MG DAILY August 23, 2019 3:27pm fecjww-[id number]-tbnkxuy (CREON 36) 36,000-114,000- 180,000 unit delayed release capsule .COMPLEX lisinopril (ZESTRIL) 40 mg tablet Take 40 mg by mouth once daily. fluconazole (DIFLUCAN) 150 mg tablet 1 tab by mouth every other day for 3 doses estradiol (ESTRACE) 0.01 % (0.1 mg/gram) vaginal cream Use 1 g vaginally as directed. Insert 1 gm vaginally every night x 14 nights then insert 1 gm vaginally twice weekly tamoxifen (NOLVADEX) 20 mg tablet Take 1 tablet (20 mg) by mouth once daily. pioglitazone (ACTOS) 15 mg tablet Take 1 tablet by mouth once daily. omeprazole (PRILOSEC) 40 mg capsule Take 1 capsule by mouth once daily. Calcium Citrate-Vitamin D3 (CITRACAL+D) 315 mg-6.25 mcg (250 unit) tab Take 2 tablets by mouth once daily. ezetimibe (ZETIA) 10 mg tablet Take 1 tablet by mouth once daily. metFORMIN (GLUCOPHAGE) 500 mg tablet Take 2 tablets by mouth twice daily with meals. ammonium lactate (LAC-HYDRIN) 12 % lotion Apply 1 application to affected area twice daily as needed. Clobetasol Propionate 0.05 % gel Apply 1 application to affected area as needed. acetaminophen (TYLENOL) 500 mg tablet Take 1,000 mg by mouth every 8 hours as needed. nitroglycerin sublingual (NITROQUICK) 0.4 mg SL tablet Dissolve 1 tablet under the tongue every 5 minutes as needed for Chest Pain. ketoconazole (NIZORAL) 2 % shampoo Apply 1 application to affected area once daily as needed. montelukast (SINGULAIR) 10 mg tablet Take 10 mg by mouth daily at bedtime. metoprolol succinate ER (TOPROL XL) 25 mg 24 hr tablet Take 1 tablet by mouth twice daily. Per Dr. Gomez LACTOBACILLUS ACIDOPHILUS (PROBIOTIC ORAL) Take 1 tablet by mouth once daily. CPAP No current facility-administered medications for this visit. Review of Systems: Pertinent as per HPI Physical exam: BP 118/70 Pulse 68 Temp 36.3 C (97.4 F) (Temporal Artery) Ht 159.8 cm (5' 2.9) Wt 63.1 kg (139 lb 3.2 oz) SpO2 98% BMI 24.74 kg/m General Appearance: Well appearing, alert, in no acute distress, well-hydrated, well nourished, thin to moderately built Eyes: Extraocular movements are intact. Neck: Supple, no adenopathy; thyroid symmetric, normal size, no bruits. Lungs: unlabored breathing on room air Heart: RRR Extremities: No deformities, edema, skin discoloration, clubbing or cyanosis. Peripheral Pulses: Normal. Neurologic: Gait normal. Previous laboratory results: Latest Ref Rng 04/17/2024 Protein, Total 6.3 - 8.0 g/dL 6.3 Albumin 3.9 - 4.9 g/dL 3.8 (L) Calcium 8.5 - 10.2 mg/dL 8.9 Bilirubin, Total 0.2 - 1.3 mg/dL 0.2 Alkaline Phosphatase 34 - 123 U/L 37 AST 13 - 35 U/L 20 ALT 7 - 38 U/L 11 Glucose 74 - 99 mg/dL 119 (H) BUN 7 - 21 mg/dL 11 Creatinine 0.58 - 0.96 mg/dL 0.78 Sodium 136 - 144 mmol/L 142 Potassium 3.7 - 5.1 mmol/L 4.1 Chloride 98 - 107 mmol/L 105 CO2 22 - 30 mmol/L 26 Anion Gap 8 - 15 mmol/L 11 eGFR >=60 mL/min/1.73m 84 Legend: (L) Low (H) High Imaging: CT abdomen/pelvis: 11/25/2022: RESULT: Liver: Stable subcentimeter hypodensity within the left lobe 2 small fully characterize, most likely benign etiology. No further focal abnormality is seen. Hepatic steatosis. Biliary: No bile duct dilation. Gallbladder is absent. Spleen: No mass. No splenomegaly. Pancreas: No mass or duct dilation. Adrenals: Right adrenal gland is unremarkable. On coronal images, for example 5:78, there appears to be a hypodense nodule extending from the adrenal gland the overall size measuring 2.4 x 1.5 cm. Correlation with previous abdominal CT demonstrates lesion to be stable, adenoma considered as a possible etiology. Kidneys: Stable 1 cm low-attenuation lesion in the right lower pole, most consistent with simple cysts. Smaller hypodense lesion within the medial midpole of the left kidney, too small to fully characterize, benign etiology suspected. No hydronephrosis or renal calculus bilaterally. GI tract: No dilation or wall thickening. Normal appendix. Lymph nodes: No abdominal or pelvic lymphadenopathy. Mesentery/Peritoneum: No ascites or mass. Retroperitoneum: No mass. Vasculature: - Abdominal aorta and iliac arteries: No aneurysm. - Celiac and SMA: Patent without stenosis. - Portal venous system (SMV, splenic vein, portal vein and branches): Patent. - Hepatic veins: Patent. Pelvis: No mass, ascites or fluid collection. Prior hysterectomy Bones/Soft Tissues: No significant finding. Lower thorax: Unremarkable. [employer] Professor (topogram) images: No additional findings. IMPRESSION: Stable hypodensity within the left hepatic lobe, most consistent with benign etiology. Hepatic steatosis. Probable small cysts of the kidneys. There is a hypodensity which appears to extend from the left adrenal gland, stable, possible etiologies include adenoma. Previous Adrenal CT: CT abdomen/pelvis w IV contrast : 09/2022 with no adrenal nodules - reviewed images also do not have a similar hypodensity seen on the CT in 11/2022 CT abdomen 06/2024 with reportedly normal B/L adrenal nodules ASSESSMENT/PLAN: Left adrenal nodule/incidentaloma On reviewing through multiple imaging studies, there was a CT abd/pelvis done on 11/25/2022 which reveals a 2.4 cm right adrenal adenoma. All imaging studies after that both CTs and MRIs including the most recent one done in 06/2024 demonstrated normal b/l adrenal nodules Review of Urology note states chronic and stable right adrenal nodule but patient could not confirm if there was any other new finding she was referred to Endocrinology now as opposed to when the nodule was found in 11/2022, especially with all imaging studies done later were normal I reviewed through the images and could see a possible hypodense focus on the lateral arm of left adrenal gland I briefly discussed adrenal nodules, and that a 2.4 cm nodule is unlikely to disappear, hence stressing on the possibility of a nodule present from then to now if there was actually one We discussed doing an Adrenal protocol CT for confirming the presence of a nodule and if present to characterize the nodule, followed by which we might consider labs. Patient is advised to hold metformin for 2 days before imaging with Contrast At this time, she does not have any symptoms concerning for excess hormone secretion from adrenal glands She voiced understanding of the plan. Medical Decision Making: Problems: Moderate: New problem with uncertain prognosis Data: Unique test result(s) reviewed: 2 Unique test(s) ordered: 1 Independent interpretation of test from other physician/QHCP Risk: Moderate: Moderate risk from testing/treatment Medical Decision Making Level: 4 - Moderate SIGNATURE: Alexa Matute MD DATE of SERVICE: July 11, 2024 TIME of SERVICE: 12:48 PM documented in this encounter [facility] 07-04-2024 Instructions Pascual Ori, - 07/04/2024 11:03 AM EDT Images from the original note were not included. Microhematuria Overview What is microhematuria? Hematuria is the condition of having blood in your urine (pee). There are two types: gross hematuria (you can actually see the blood) and microscopichematuria. Microscopic hematuria is known by a shorter name, microhematuria. If you have microhematuria, the blood in your urine can t be seen without testing or a microscope. If you have gross hematuria, you can see the blood in your urine without a microscope. It might look dark like tea or slightly pinkish or reddish. Who does microhematuria affect? Microscopic hematuria can occur in adults and children. Symptoms and Causes What are the symptoms of microhematuria? Often, there are no symptoms of microhematuria. In that case, we say that the condition is asymptomatic. Your healthcare provider might find it when they order routine tests at a check-up. If you do have symptoms, they might include: Having to pee more often than usual (called frequent urination). Having pain or burning while you pee. Feeling pain in your back or side. Fever. Bad-smelling urine. What causes microhematuria? In many cases, you might not discover the cause of microhematuria. When causes are discovered, they might include: Urinary tract infections. This is the most common cause of microscopic hematuria. Menstruation (your period). Certain medications. Vigorous exercise. Benign prostatic hyperplasia, or enlarged prostate. Stones in the urinary tract including ureteral stones, kidney stones and bladder stones. Kidney disease. Urethral strictures. Cancer, including bladder, kidney and prostate cancer. Microhematuria isn t contagious, but the most common cause of microhematuria is a urinary tract infection (which also isn t contagious). Although we tend to think immediately of cancer, the most common cause is not cancer. When there is cancer associated with microhematuria, the risk is higher when you are older and when you smoke or use tobacco products. Diagnosis and Tests How is microhematuria diagnosed? Your healthcare provider will ask you questions about your symptoms and about your medical history. For instance, they will ask if you: Have had blood in your urine any other times. Have lost or gained a lot of weight recently. Smoke or use tobacco products. Take any kinds of medicines, oszf-asj-jdwlffg supplements or recreational drugs. Have other family members who have had blood in their urine. If you have symptoms that lead your provider to believe you might have blood in your urine, they might order one or some of the following tests: Urine tests such as urinalysis and urine microscopy. A urine culture can find an infection. A laboratory test will show three or more red blood cells (RBCs) per high-powered field under the microscope, which is the definition of microhematuria according to the [employer]. Repeat testing is not required after confirming microhematuria on a first test. Blood tests, such as the complete blood count test. Imaging scans, including a computed tomography (CT) scan. Kidney function tests. Cystoscopy. This is a procedure where a small flexible telescope is used to examine the inside of your urethra and bladder. Biopsy. Management and Treatment How do you treat microhematuria? Treating microscopic hematuria depends on what causes it. If testing does not demonstrate a cause of microscopic hematuria, treatment may not be necessary and observation may be recommended. After that, observation may continue. Medications If you have a urinary tract infection, your provider may prescribe antibiotics. If you were born as a male and have an enlarged prostate, your provider might prescribe medication to shrink the prostate or relax the bladder, or both. In some cases, surgical treatment may be recommended. If you have something like kidney stones, your provider might prescribe pain medication, anti-nausea medication and/or medication to relax tissue in your urinary system to allow the stone or stones to pass. In certain situations, you and your provider may decide that surgery is the best way to manage kidney stones. Prevention How can I reduce my risk? It may not be possible to prevent microhematuria from happening. However, drinking plenty of fluids, preferably water, is a good thing to do in general. It s especially helpful when you re exercising. Again, depending on the reason for microhematuria, your provider might have other suggestions about what to eat or drink or what to avoid. [place] / Prognosis What can I expect if I have microhematuria? The outlook for someone with microhematuria depends on what s causing blood in the urine. In general, the outlook is good. Many causes are things that resolve without treatment or that can be treated easily. Living With When should I see my healthcare provider? If you have symptoms related to microhematuria, such as pain or fever, give your healthcare provider a call or contact them electronically. If any symptom is severe, you may choose to go to an urgent care provider. If you ve had microhematuria before and you happen to notice symptoms of gross hematuria (visible blood in your urine), contact your provider. Additional Common Questions Is microhematuria serious? Even though having blood in your urine may sound scary, microhematuria doesn t always mean that something serious is going on. It may clear up on its own, or it may be the result of something that can be treated easily. This is something best determined by working with your healthcare provider. Is microscopic hematuria a sign of cancer? Microscopic hematuria can mean that you have a benign (not cancerous) or malignant (cancerous) tumor somewhere in your urinary tract. However, cancer isn t the most likely cause. A note from [facility] You might have blood in your urine and not even know it. Microhematuria is blood in urine that can only be seen under a microscope. It s often discovered during routine exams. Your healthcare provider will work with you to find out why the blood is there. Many times there s nothing too serious going on, but it s best to work with your provider to discover the cause and to take care of it. Cystoscopy What is a cystoscopy? A cystoscopy is a procedure done by a urologist, a doctor specializing in the urinary system. During a cystectomy, the urologist uses a scope to look at the inside of the bladder, where urine is stored, and in the urethra, the channel that urine flows through out of the bladder. A cystoscopy may also be used to remove something that shouldn t be there, such as a bladder stone, or to take a biopsy (a sample of tissue) from the bladder lining to analyze it in the lab for further information. The procedure can also help with placing a catheter, which is a thin drainage tube for urine. When is a cystoscopy needed? The cystoscopy procedure is ordered by the urologist when more information is needed about what is happening inside the lower urinary tract. Most often it is used to check for any problems in the bladder and its lining. The procedure is also an important tool to identify what may be causing abnormal problems, such as: Frequent urinary tract infections (UTIs) Hematuria, or blood in the urine Urinary frequency, or urinating more than 8 times a day Urinary urgency, or the sudden, strong urge to urinate Urinary retention, or when the bladder does not empty completely Urinary incontinence, or urine leakage Pain or burning before, during, or after urination Trouble starting the flow of urine, completing urination, or both Abnormal cells found in a urine sample How does a patient prepare for a cystoscopy? Before the procedure is recommended, the urologist will ask about the patient s medical history, current prescription and jssa-kth-xzmebyi medications, and allergies to medications, including anesthetics. The urologist will explain what the patient can expect after the procedure. The patient may need to give a urine sample to test for a urinary tract infection (UTI). If the patient has a UTI, the urologist may treat the infection with antibiotics before performing a cystoscopy. The urologist or nurse may ask the patient to drink plenty of liquids, and to urinate immediately before the procedure. What happens during a cystoscopy procedure? The cystoscopy procedure usually takes about 30 minutes and is done on an outpatient basis. The urologist will recommend that the patient empty his or her bladder before the procedure begins. The cigo-mj-ebcq process may be similar to this: The patient will be lying on an exam table. The urologist may place some gel or a local anesthetic in the patient s urethra to aid in reducing any discomfort while the procedure is taking place. The urologist will gently insert the cystoscope through the urethra into the bladder. The patient may feel discomfort or a pressure sensation. The cystoscope is a long, thin tube with a lens on one end that the urologist looks through or, on a camera-equipped scope, visualizes on a monitor. The other end of the cystoscope that is inserted into the urethra has a tiny lens with a light that allows the urologist to look inside the urethra and bladder. There are two types of cystoscopes. One has a flexible insertion tube while the other is stiff. Once the cystoscope is inserted, the urologist will need to instill some sterile water or a normal saline solution from the cystoscope into the bladder. The water /saline fills and stretches the bladder so the urologist can get a better view of the bladder wall. As the liquid enters the bladder, the patient may again feel some discomfort as well as the urge to urinate. If necessary, the urologist can remove some of the liquid from the bladder during the procedure. Once the procedure is over, the urologist may drain the patient s bladder, or ask the patient to use the bathroom to urinate before he or she leaves the office. During the brief procedure, the urologist examines the lining of the urethra as the cystoscope passes through it and then into the bladder. Once the cystoscope reaches the bladder, the urologist examines the lining of the bladder. During the procedure, the urologist can remove a bladder stone or take a biopsy if needed. Sometimes a monitor is set up in the doctor s office so that both the urologist and patient can watch the procedure as it is taking place. What does the urologist look for during a cystoscopy? The urologist will be looking for anything that appears unusual. The bladder wall should be smooth, and there should not be any blockages in the lower urinary tract. During a cystoscopy, the urologist is able to see: Bladder stones: A small stone-like mass that forms from minerals in the urine. It usually forms when urine does not completely leave the bladder and the minerals in the urine crystallize. If not treated, they can cause pain and lead to blood in the urine. A stone can also cause a blockage so that urine cannot leave the bladder. Abnormal tissue, polyps, tumors, or cancer in the urethra or bladder Stricture, or a narrowing of the urethra: This could be a symptom of an enlarged prostate in men or of scar tissue in the urethra. During the cystoscopy, can the urologist treat some problems? During a cystoscopy, the urologist may be able to treat minor problems such as bleeding in the bladder or blockage in the urethra. The urologist may also use a cystoscopy to: Remove a small stone in the bladder or urethra Remove or treat abnormal tissue, polyps, and certain tumors Inject medication into the urethra wall or the bladder to treat urinary leakage What happens after the cystoscopy procedure? Typically, a cystoscopy is done in the urologist s office and afterwards most patients go home the same day as the procedure. Sometimes after a cystoscopy procedure, the patient may: Feel a burning or soreness around the urethra Feel slight burning while urinating Notice small flecks of blood in the urine Feel mild discomfort in the bladder area or kidney area when urinating Need to urinate frequently or urgently These problems should not last more than a day after the procedure. If pain persists, bloody urine lasts longer than 48 hours, or the patient develops a fever, the patient should call the doctor. Occasionally, the patient may have an increase in urinary frequency for the first 24 hours after the procedure. There may be also a change in the color of the urine (it may be darker, or look pink or red due to mild bleeding). This is common, especially if a biopsy was taken. After the procedure, the urologist may recommend that the patient: Drink 16 ounces of water each hour for 2 hours after the procedure Take a warm bath to help ease the burning feeling Place a warm, damp washcloth over the urethral opening to relieve discomfort Take an niza-htn-oldastp pain medicine If necessary, the urologist may prescribe an antibiotic to take for a couple of days after the procedure to prevent an infection. If you have severe pain, chills, or fever (these could be signs of an infection), it is important to call the urologist s office and explain the symptoms. What are the risks of cystoscopy? Every patient is different, and the urologist will take into consideration each patient s specific medical history when explaining possible complications from the procedure. Although minimal, the risks of cystoscopy may include: Urinary tract infections (UTI) Bleeding Abdominal pain Burning or discomfort during urination Possible injury to the urethra or bladder Narrowing of the urethra because of scar tissue formation Trouble urinating due to swelling of surrounding tissues If any of the following symptoms occur after a cystoscopy, you should call the urologist right away: Inability to urinate and the discomfort of a full bladder Burning or discomfort during urination that lasts more than 2 days Bright red urine or blood clots in the urine Fever Severe discomfort References: NIH: National [place] of Diabetes and Digestive and Kidney Diseases. Cystoscopy and Ureteroscopy Accessed 05/06/2017. Rolando Paul, Jonnathan D, Buzz H, [place] CHEUNG. The History of Cystoscopy in Urology, Internet Journal of Urology. 14,1 (2015) [email or web address] Accessed 05/06/2017. [employer]. What is Cystoscopy? Accessed 05/06/2017. Copyright 9226-3174 [facility]. All rights reserved. documented in this encounter [facility] 07-04-2024 Note HNO ID: [id number] Author: ORI LORD DO Service: ? Author Type: Physician Type: Progress Notes Filed: 07/04/2024 11:16 Note Text: [facility] ESTABLISHED PATIENT NOTE/HISTORY AND PHYSICAL PATIENT: Dom Avila (68 year old) PCP: Clifton Hung MD DATE OF SERVICE: 07/04/2024 SUBJECTIVE: CHIEF COMPLAINT: Patient is here for 6 week f/u. Patient has no new concerns. Patient is scheduled to see an Printmaker on 07/11/24. HISTORY OF PRESENT ILLNESS: The patient was last seen by Ori Lord DO on 05/23/24 . Prior notes were reviewed. Patient returns today for follow up . In interim doing ok , has no new complaints . Reporting now on Prevalite which caused diarrhea and indigestion (advised to f/u w/other provider for this) No new gross hematuria, or UTIs. Quit the coffee completely and now has less freq/urge and still changes pantiliners 2/day (usually more out of habit and hygiene), nocturia 0-1. 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 (HCC) (01/09/2017), Garibay's cyst of knee, left (03/02/2018), Breast neoplasm, Tis (DCIS), 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), CAD (coronary artery disease), Cataract, Colon polyp (2011), Controlled type 2 diabetes mellitus without complication, without long-term current use of insulin ([facility]) (10/22/2016), De Quervain's tenosynovitis, left (07/31/2019), Diabetic eye exam ([facility]) (01/16/2016), 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), 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), Encounter for Medicare annual wellness exam (04/08/2023), Essential hypertension (01/16/2016),Female pattern hair loss, Foot callus (05/26/2021), History of colon polyps, History of depression, History of hyperparathyroidism, History of transient ischemic attack (TIA) (10/29/2017), Irritable bowel syndrome with diarrhea (05/26/2021), Living will on file at physician's office (04/08/2023), Meniere disease, right (10/29/2017), Mixed hyperlipidemia (05/31/2009), Narcolepsy without cataplexy (01/16/2016), Obstructive sleep apnea on CPAP, Pancreatic insufficiency (04/08/2023), Psoriasis, RLS (restless legs syndrome) (02/22/2023), Rosacea, S/P angioplasty with stent (01/09/2017), Scalp itch, Seasonal allergies, Vitamin D deficiency (2012), and Well adult exam (01/16/2016). Past Surgical History: -Patient has a past surgical history that includes cholecystectomy (2004); past surgical history of (2004); total abdominal hysterect w/wo rmvl tube ovary (1995); past surgical history of; heart catheterization (2004); past surgical history of (10/2006); delivery only; low back disk surgery (2009); bunionectomy, lapidus-type (2009); colonoscopy AND polypectomy (10/12, 10/13); colonoscopy (08/07/2015); past surgical history of (2014); heart catheterization (01/04/2017); 2d echo (exep) (06/30/2017); stent placement (01/06/2017); stress test (04/20/2017); past surgical history of (Right, 10/2016); heart surgery hx (12/2016); colonoscopy flx dx w/collj spec when pfrmd (08/09/2018); esophagogastroduodenoscopy transoral diagnostic (08/09/2018); heart catheterization (10/2018); bx breast w/device 1st lesion stereotactic guid (Left, 03/25/2021); mastectomy, partial (Left, 04/08/2021); breast lumpectomy hx (Left, 04/08/2021); 2d echo (exep) (05/14/2021); 2d echo (exep) (09/16/2021); and repair, detached retina, laser (Right). Medications: -Patient has a current medication list which includes the following prescription(s): doxycycline, coenzyme q10, inyakf-wrioczpo-vyxtowr, lisinopril, fluconazole, estradiol, tamoxifen, pioglitazone, omeprazole, calcium citrate-vitamin d3, ezetimibe, metformin, ammonium lactate, clobetasol propionate, acetaminophen, nitroglycerin sublingual, ketoconazole, montelukast, metoprolol succinate er, lactobacillus acidophilus, and CPAP. Allergies: -Patient is allergic to brilinta [ticagrelor], crestor [rosuvastatin], keflex [cephalexin], lipitor [atorvastatin], lovastatin, and norco [hydrocodone-acetaminophen]. Family History: -Patient family history includes Coronary Artery Disease (age of onset: 25) in her father; Diabetes in her father, maternal grandfather, and paternal grandmother; Lung cancer in her brother; Pancreatic cancer in her mother; suicide in her son. Social History: -Patient reports that she quit smoking about 29 years ago. Her smoking use include (more content not included)... [facility] 07-04-2024 History of Present illness Narrative Images from the original note were not included. [facility] ESTABLISHED PATIENT NOTE/HISTORY AND PHYSICAL PATIENT: Dom Avila (68 year old) PCP: Clifton Hung MD DATE OF SERVICE: 07/04/2024 SUBJECTIVE: CHIEF COMPLAINT: Patient is here for 6 week f/u. Patient has no new concerns. Patient is scheduled to see an Printmaker on 07/11/24. HISTORY OF PRESENT ILLNESS: The patient was last seen by Ori Lord DO on 05/23/24 . Prior notes were reviewed. Patient returns today for follow up . In interim doing ok , has no new complaints . Reporting now on Prevalite which caused diarrhea and indigestion (advised to f/u w/other provider for this) No new gross hematuria, or UTIs. Quit the coffee completely and now has less freq/urge and still changes pantiliners 2/day (usually more out of habit and hygiene), nocturia 0-1. 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 (HCC) (01/09/2017), Garibay's cyst of knee, left (03/02/2018), Breast neoplasm, Tis (DCIS), 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), CAD (coronary artery disease), Cataract, Colon polyp (2011), Controlled type 2 diabetes mellitus without complication, without long-term current use of insulin ([facility]) (10/22/2016), De Quervain's tenosynovitis, left (07/31/2019), Diabetic eye exam ([facility]) (01/16/2016), 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), 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), Encounter for Medicare annual wellness exam (04/08/2023), Essential hypertension (01/16/2016), Female pattern hair loss, Foot callus (05/26/2021), History of colon polyps, History of depression, History of hyperparathyroidism, History of transient ischemic attack (TIA) (10/29/2017), Irritable bowel syndrome with diarrhea (05/26/2021), Living will on file at physician's office (04/08/2023), Meniere disease, right (10/29/2017), Mixed hyperlipidemia (05/31/2009), Narcolepsy without cataplexy (01/16/2016), Obstructive sleep apnea on CPAP, Pancreatic insufficiency (04/08/2023), Psoriasis, RLS (restless legs syndrome) (02/22/2023), Rosacea, S/P angioplasty with stent (01/09/2017), Scalp itch, Seasonal allergies, Vitamin D deficiency (2012), and Well adult exam (01/16/2016). Past Surgical History: -Patient has a past surgical history that includes cholecystectomy (2004); past surgical history of (2004); total abdominal hysterect w/wo rmvl tube ovary (1995); past surgical history of; heart catheterization (2004); past surgical history of (10/2006); delivery only; low back disk surgery (2009); bunionectomy, lapidus-type (2009); colonoscopy & polypectomy (10/12, 10/13); colonoscopy (08/07/2015); past surgical history of (2014); heart catheterization (01/04/2017); 2d echo (exep) (06/30/2017); stent placement (01/06/2017); stress test (04/20/2017); past surgical history of (Right, 10/2016); heart surgery hx (12/2016); colonoscopy flx dx w/collj spec when pfrmd (08/09/2018); esophagogastroduodenoscopy transoral diagnostic (08/09/2018); heart catheterization (10/2018); bx breast w/device 1st lesion stereotactic guid (Left, 03/25/2021); mastectomy, partial (Left, 04/08/2021); breast lumpectomy hx (Left, 04/08/2021); 2d echo (exep) (05/14/2021); 2d echo (exep) (09/16/2021); and repair, detached retina, laser (Right). Medications: -Patient has a current medication list which includes the following prescription(s): doxycycline, coenzyme q10, jhjced-yrglizsp-bjxegqo, lisinopril, fluconazole, estradiol, tamoxifen, pioglitazone, omeprazole, calcium citrate-vitamin d3, ezetimibe, metformin, ammonium lactate, clobetasol propionate, acetaminophen, nitroglycerin sublingual, ketoconazole, montelukast, metoprolol succinate er, lactobacillus acidophilus, and CPAP. Allergies: -Patient is allergic to brilinta [ticagrelor], crestor [rosuvastatin], keflex [cephalexin], lipitor [atorvastatin], lovastatin, and norco [hydrocodone-acetaminophen]. Family History: -Patient family history includes Coronary Artery Disease (age of onset: 25) in her father; Diabetes in her father, maternal grandfather, and paternal grandmother; Lung cancer in her brother; Pancreatic cancer in her mother; suicide in her son. Social History: -Patient reports that she quit smoking about 29 years ago. Her smoking use included cigarettes. She started smoking about 32 years ago. She has a 4.5 pack-year smoking history. She has never used smokeless tobacco. She reports that she does not drink alcohol and does not use drugs. I have confirmed and edited as necessary, the PFSH and ROS obtained by others. OBJECTIVE: PHYSICAL EXAMINATION: There were no vitals taken for this visit. Constitutional: Well-developed, well-nourished. No acute distress. Psych: Normal mood and affect. Memory intact. Eyes: Lids appear normal. Conjunctivae are not injected. ENMT: External ears are normal. Hearing is grossly normal. Respiratory: Normal respiratory effort, no acute respiratory distress. No audible wheeze. Skin: Warm and dry. No visible rashes. Musculoskeletal: Ambulatory: Yes : No [place] DATA: Clinic: Urine dipstick shows: URINALYSIS: GLUCOSE UA (POCT) Negative 04/25/2024 BILIRUBIN UA (POCT) Negative 04/25/2024 KETONE UA (POCT) Negative 04/25/2024 SPECIFIC GRAVITY UA (POCT) 1.010 04/25/2024 HEMOGLOBIN/BLOOD UA (POCT) Negative 04/25/2024 PH UA (POCT) 6.0 04/25/2024 PROTEIN UA (POCT) Negative 04/25/2024 UROBILINOGEN UA (POCT) 0.2 04/25/2024 NITRITE UA (POCT) Negative 04/25/2024 LEUKOCYTES UA (POCT) Moderate 04/25/2024 COLOR UA (POCT) Yellow 04/25/2024 CLARITY UA (POCT) Clear 04/25/2024 Laboratory: Creatinine Date Value Ref Range Status 04/17/2024 0.78 0.58 - 0.96 mg/dL Final 04/02/2023 0.87 0.58 - 0.96 mg/dL Final 01/07/2023 0.78 0.58 - 0.96 mg/dL Final 11/25/2022 0.76 0.58 - 0.96 mg/dL Final Cultures: Culture Results - Past 1 Year Culture 07/23/2023 >=100,000 CFU/ml Escherichia coli 11/23/2023 10,000 -<50,000 CFU/ml Escherichia coli 01/18/2024 10,000 -<50,000 CFU/ml Normal urogenital holland 04/19/2024 <10,000 CFU/ml Normal urogenital holland 04/25/2024 10,000 -<50,000 CFU/ml Normal urogenital holland Susceptibility Tests - Past 1 Year Collected Organism Ampicillin Ampicillin/Sulbact Cefazolin Cefepime Ceftriaxone Ciprofloxacin Ertapenem Gentamicin Meropenem Nitrofurantoin Piperacillin/Tazobac Tobramycin Trimeth sulfameth 07/23/23 Escherichia coli R I S S S S S S S S S S S 11/23/23 Escherichia coli R S S S S R S S S S S S S 01/18/24 Normal urogenital holland 04/19/24 Normal urogenital holland 04/25/24 Normal urogenital holland ASSESSMENT/PLAN: 1. Urinary incontinence, mixed - ICD9: 788.33, ICD10: N39.46 (primary diagnosis) - chronic, stable - freq/urge, noturia x3 ; KLAUS > UUI ; 2 pantiliners per day w/bother ; PVR 0cc ; behavior - 2/2 coffee in evening and after quitting coffee freq/urge less and nocturia only x0-1 ; NELL w/o bother now - cont current mgmt including conservative measures 2. Microscopic hematuria - ICD9: 599.72, ICD10: R31.29 - chronic, stable; High risk 2/2 age - etiology: unknown Medical records personally reviewed and found significant for: Reviewed UA and RBS up to 10-02 Reviewed prior CBC and Hgb 11; PLT WNL 05/2024 OSH Reviewd prior BMP GFR 80s and Cr WNL - ok for CT U but then pt had CT A/P W/W/O [facility] 06/23/24 - reviewed this report also reviewed there are no hydronephrosis or renal masses. They did not comment if there are any stones. There is supposedly bilateral renal cysts as well did not clarify if these were simple in nature - We discussed possible malignant causes of hematuria as well as benign causes such as stones, infections, kidney diseases, strictures/stenosis - Discussed the AUA guidelines for the patient's risk level and the associated risks and benefits of these therapies Next step would be cysto, discussed risks of this, and the patient did want to proceed - All questions answered - Handout given 3. 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 Renal cyst - ICD9: 753.10, ICD10: N28.1 Plan: F/u cysto ; Estrogen cream per other prescriber also advised f/u other provider re: Cholestyramine Will also request images from [facility] to review for stones, and composition of cysts -Patient will call the clinic or use [facility]hart should anything change or any new issues arise -All questions were answered Ori Lord DO Staff Urologist Medical Decision Making: Problems: Moderate: 2+ stable chronic illnesses Data: Unique test result(s) reviewed: 3+ Medical Decision Making Level: 4 - Moderate documented in this encounter [facility] 06-26-2024 Note HNO ID: [id number] Author: LATRICE UDNN LPN Service: ? Author Type: LICENSED NURSE Type: Progress Notes Filed: 06/26/2024 07:18 Note Text: Scan on 06/25/2024 10:26 AM by Deyvi Yadav PA-C: CT Scan [facility] 06-26-2024 History of Present illness Narrative Scan on 06/25/2024 10:26 AM by Provider, External, PA-C: CT Scan documented in this encounter [facility] 06-19-2024 Note HNO ID: [id number] Author: SHAKEEL YANG MA Service: ? Author Type: Tuber Machine Cutter Type: Progress Notes Filed: 06/19/2024 15:17 Note Text: Scan on 06/19/2024 10:34 AM by ProviderDeyvi PA-C: Chemistry Scan on 06/19/2024 10:37 AM by Deyvi Yadav PA-C: Consultation - Emergency Medicine Scan on 06/19/2024 11:44 AM by Deyvi Yadav PA-C: EGD Scan on 06/19/2024 11:46 AM by Deyvi Yadav PA-C: Colonoscopy Shakeel Yang MA [facility] 06-19-2024 History of Present illness Narrative Scan on 06/19/2024 10:34 AM by Deyvi Yadav PA-C: Chemistry Scan on 06/19/2024 10:37 AM by Deyvi Yadav PA-C: Consultation - Emergency Medicine Scan on 06/19/2024 11:44 AM by Deyvi Yadav PA-C: EGD Scan on 06/19/2024 11:46 AM by Deyvi Yadav PA-C: Colonoscopy Shakeel Yang MA documented in this encounter [facility] 06-19-2024 Note [facility] Medical Records Department [address] [place] [id number] History Physical Exam 06/19/24 1030 MR#: [id number] Acct: [id number] Name: DOM AVILA Rep #: [id number] : 1955 68 From: Carson Alcantar DO PCP: Dr. Clifton Hung MD Status:[facility] Location: [place] [address] History and Physical Date of Admission: 06/19/24 DOM AVILA, is a 68 F who presents to the office today for follow up. Prior workup: Biochemical [facility] CBC (hgb 13.5, platelet 252), amylase 74, lipase H133. US RUQ 11.2.[address] abd/pel 11.8.22 hepatic lesion, subcentimeter hypodense, too small to characterize. *BGI established 11.19.22 with referral from PCP. Nausea and reflux have been an issue for several months. Dicyclomine and famotidine PRN. Biochemical amylase, CA19-9, CMP, ESR, CBC, celiac, LDH without pertinent abnormality. LFT AST L13-ALT 21-AP L40, CRP H8.32, lipase H490 Stool studies fecal fat, elastase WNL EGD/colonoscopy 12.01.22 EGD irregular Zline 37cm; esophagitis without metaplasia; gastritis; duodenum without abnormality. H.Pylori negative. Colonoscopy diverticulosis; congested mucosa RS colon through hepatic flexure. No pathologic changes. Contact 01.08.23 with continued constipation. Start lactulose. OV 5 continue Creon. Recommend ongoing surveillance for pancreatic cancer due to FH OV 1 Lactulose PRN continues and with this she is able to have a BM most days of the week. Otherwise feels well. MRCP 2 No evidence of a pancreatic mass. Normal MRI of the upper abdomen status post cholecystectomy OV 7. pt reports occasional nausea when she eats something she shouldn't. Alternating diarrhea and constipation. Pt reports increased difficulty swallowing certain solids. ROS Const Constitutional: Positive for fatigue; No fever(s) or weight change ENT ENT: Positive for difficulty swallowing Gastro GI: Positive for abdominal pain, bloating, constipation, diarrhea, heartburn, difficulty swallowing, excessive flatus, Blood in stool and nausea/dyspepsia; No belching, change in bowel habits, change in stool character, coffee ground emesis, cramping, feeling full early, incontinent of stools, Vomiting blood/hematemesis, loose stools, Black,tarry stools, pain with swallowing, vomiting or other Musc Musculoskeletal: Positive for joint pain, muscle cramps and Arthritis Skin Skin: Positive for dry skin; No yellowing of the eye or itchy eyes Psych Psychiatric: No anxiety and No depression Endo Endocrine: Positive for fatigue; No weight change Aller/Imm Allergy/Immunologic: No itchy eyes Skyler/Lymp Hematologic/Lymphatic: Positive for easy bruising; No easy bleeding Exam Const General: cooperative, healthy appearing and comfortable Nutritional Appearance: average body habitus Orientation: alert, awake and oriented x3 Assessment and Plan Assessment and Plan (1) Elevated CA 19-9 level: Status: Acute (2) Diarrhea: Status: Chronic Plan: Continue Creon, very effective, no longer having any abd pain or diarrhea. She did have another episode of abdominal pain cramping and diarrhea that I suspect is secondary to IBS with diarrhea and not secondary to exocrine pancreatic insufficiency. She will undergo an upper and lower endoscopy to evaluate upper lower GI tract. She does have a family history of pancreatic cancer in her mother. Repeat CA 19-9 and her last MRI did not show any abnormalities in her pancreas so we will repeat that in approximately 6 months. (3) Elevated lipase: Status: Chronic Plan: Check labs including CA 19-9 Recommendations: -EGD and colonoscopy -Check CA 19-9 -Check amylase lipase -Continue sulcra fate and dicyclomine Orders: Orders CORTISOL SERUM Today R97.8 - Other abnormal tumor markers Erythrocyte Sed Rate Today R97.8 - Other abnormal tumor markers CRP Today R97.8 - Other abnormal tumor markers Amylase Today R97.8 - Other abnormal tumor markers Lipase Today R97.8 - Other abnormal tumor markers CA 19-9 Serial Monitor Today R97.8 - Other abnormal tumor markers Comprehensive Metabolic Profil Today R97.8 - Other abnormal tumor markers IgG Subclasses Today R97.8 - Other abnormal tumor markers Immunoglobulins G/A/M/E Today R97.8 - Other abnormal tumor markers IBD Expanded Profile Today R97.8 - Other abnormal tumor markers Adrenocorticotropic Hormone Today R97.8 - Other abnormal tumor markers Renin/Aldosterone Activity Today R97.8 - Other abnormal tumor markers CBC W/Diff, Automated Today D64.9 - Anemia, unspecified, R97.8 - Other abnormal tumor markers MANUEL + Protein Elect, Serum Today R97.8 - Other abnormal tumor markers Calprotectin, Stool Today R97.8 - Other abnormal tumor markers Pancreatic Elastase, Fecal Today R97.8 - Other abnormal tumor markers Fecal Fat, Qualitati (more content not included)... [facility] 06-15-2024 Note HNO ID: [id number] Author: LATRICE DUNN LPN Service: ? Author Type: LICENSED NURSE Type: Progress Notes Filed: 06/15/2024 09:45 Note Text: Scan on 06/15/2024 8:15 AM by Deyvi Yadav PA-C: Microbiology [facility] 06-15-2024 History of Present illness Narrative Scan on 06/15/2024 8:15 AM by Deyvi Yadav PA-C: Microbiology documented in this encounter [facility] 06-14-2024 Note HNO ID: [id number] Author: LATRICE DUNN LPN Service: ? Author Type: LICENSED NURSE Type: Progress Notes Filed: 06/14/2024 06:48 Note Text: Scan on 06/14/2024 1:35 AM by Deyvi Yadav PA-C: Miscellaneous Lab [facility] 06-14-2024 History of Present illness Narrative Scan on 06/14/2024 1:35 AM by Deyvi Yadva PA-C: Miscellaneous Lab documented in this encounter [facility] 06-09-2024 Note HNO ID: [id number] Author: SHAKEEL YANG MA Service: ? Author Type: Tuber Machine Cutter Type: Progress Notes Filed: 06/09/2024 14:54 Note Text: Scan on 06/08/2024 4:38 PM by Deyvi Yadav PA-C: Miscellaneous Lab Shakeel Yang MA [facility] 06-09-2024 History of Present illness Narrative Scan on 06/08/2024 4:38 PM by Deyvi Yadav PA-C: Miscellaneous Lab Shakeel Yang MA documented in this encounter [facility] 06-06-2024 Note HNO ID: [id number] Author: LATRICE DUNN LPN Service: ? Author Type: LICENSED NURSE Type: Progress Notes Filed: 06/06/2024 11:38 Note Text: Scan on 06/06/2024 9:40 AM by Deyvi Yadav PA-C: Microbiology [facility] 06-06-2024 History of Present illness Narrative Scan on 06/06/2024 9:40 AM by Deyvi Yadav PA-C: Microbiology documented in this encounter [facility] 06-06-2024 Note HNO ID: [id number] Author: LATRICE DUNN LPN Service: ? Author Type: LICENSED NURSE Type: Progress Notes Filed: 06/06/2024 06:57 Note Text: Scan on 06/05/2024 4:39 PM by Deyvi Yadav PA-C: Hematology [facility] 06-06-2024 History of Present illness Narrative Scan on 06/05/2024 4:39 PM by Deyvi Yadav PA-C: Hematology documented in this encounter [facility] 05-23-2024 Telephone encounter Note Please let the patient know that I reviewed her bladder diary and recommend the following changes: -Advised her not to drink any coffee after 5 PM and is possible to try eliminating it altogether to see if this helps with her urinary symptoms -Also recommend that she not drink any fluids overnight (that is within 3 hours of bedtime and overnight) -Also recommend that she urinates more often during the day and not hold her bladder more than 3 to 4 hours Ori Lord DO [facility] Work Phone: 05-23-2024 Miscellaneous Notes Please let the patient know that I reviewed her bladder diary and recommend the following changes: -Advised her not to drink any coffee after 5 PM and is possible to try eliminating it altogether to see if this helps with her urinary symptoms -Also recommend that she not drink any fluids overnight (that is within 3 hours of bedtime and overnight) -Also recommend that she urinates more often during the day and not hold her bladder more than 3 to 4 hours Ori Lord DO documented in this encounter [facility] 05-23-2024 Telephone encounter Note Consult to Endocrinology at [facility] faxed VIA sherif Madsen MA [facility] 05-23-2024 Miscellaneous Notes Consult to Endocrinology at [facility] faxed VIA sherif Madsen MA documented in this encounter [facility] 05-23-2024 Instructions Ori Landin DO - 05/23/2024 12:25 PM EDT Genitourinary Syndrome of Menopause (GSM) Menopause is an inevitable stage in every woman's life. Many women anticipate certain symptoms associated with menopause, you may also have other symptoms. If you are experiencing symptoms that include vaginal dryness, painful intercourse and/or a frequent urge to go, Dr. Maria Del Carmen Carolina, Co-Director of the Women s Wellness & Healthy Aging Program at [facility] says, it may be something called Genitourinary Syndrome of Menopause (GSM). What is Genitourinary Syndrome of Menopause (GSM)? GSM presents in women who are menopausal and includes: Burning and/or itching in your vagina. Dyspareunia (pain during sex). Unusual vaginal discharge (usually a yellow color). Spotting or bleeding, especially during sex. Vulvar itching (itching around your external genitals). It can also affect your urinary system and cause symptoms like: Frequent urinary tract infections (UTIs). Being unable to hold your pee (incontinence). Peeing more than usual. Painful urination (dysuria). Blood in your pee (hematuria). Burning feeling when you pee. What causes vaginal atrophy (GSM)? During menopause, your body makes less estrogen. Without estrogen, the lining of your vagina can become thinner and less stretchy. Your vaginal canal can also narrow and shorten. Less estrogen also lowers the amount of normal vaginal fluids and changes the acid balance in your vagina. All of these factors make your vaginal tissue more delicate and more likely to become irritated. Your body can also produce less estrogen during events other than menopause. People who are , receiving treatment for cancer or who have had their ovaries removed can also experience vaginal atrophy due to lack of estrogen. Who is at risk for getting vaginal atrophy (GSM)? Women and people AFAB in menopause are the most likely to experience vaginal atrophy because their body naturally produces less estrogen. However, other factors can decrease estrogen levels and lead to vaginal atrophy. These include: Decreased ovarian functioning due to chemotherapy or radiation therapy. Medications that contain antiestrogen properties including tamoxifen, medroxyprogesterone and nafarelin. Oophorectomy (removal of your ovaries). Some control pills. Immune disorders. (chest feeding). Smoking cigarettes. People who have penetrative sexual activity less often -- with or without a partner or partners -- may also have a higher risk of moderate to severe vaginal atrophy. Studies show that people who have sex more often tend to have milder cases of atrophy than those who stop having sex. This is because sexual stimulation increases blood flow to your vagina and makes your vaginal tissue more elastic. What are the complications of vaginal atrophy (GSM)? Vaginal atrophy can affect your quality of life and your relationship with your partner(s). There are physical and emotional side effects of GSM. Physical symptoms like pain, burning, itching and leaking pee can disrupt all areas of your life. Emotional side effects are just as complicated as the physical side effects. People experiencing symptoms of vaginal atrophy may lose interest in sex and intimacy or lose confidence in themselves. Please know that all of these feelings are normal and that your healthcare provider is there to help you. How common is vaginal atrophy (GSM)? At least half of women and people AFAB who enter menopause show signs and symptoms of genitourinary syndrome of menopause. Vaginal dryness is typically the first indication that a person is developing vaginal atrophy. Treatment Options for GSM There is help. Treatment options that are safe and effective are available to many patients, including Breast Cancer Survivors. Treatment options can include: Topical vaginal estrogen treats symptoms of vaginal atrophy without increasing levels of estrogen levels in your bloodstream. It s available in a cream, a vaginal pill or a ring. Your healthcare provider can discuss each option with you and which may work best for you. Vaginal estrogen cream: You put this cream into your vagina using an applicator. Most people need the cream daily for several weeks, but then 2-3 times per week. Vaginal ring: A vaginal ring is a thin, flexible ring your healthcare provider places into your vagina. The ring releases a low dose of estrogen over the course of three months. Then, your provider removes and replaces the ring. Vaginal tablet: You place a small tablet into your vagina using an applicator. Like other estrogen treatments, you start out using it daily before tapering off to 2-3 times per week. What are nonhormonal treatments for vaginal atrophy (GSM)? You and your healthcare provider will work closely together to come up with a treatment plan for vaginal atrophy. They ll help you decide which plan is most effective based on your symptoms and the severity of them. Estrogen and DHEA therapy are considered to be the most effective. However, these therapies aren t for everyone. There are several treatment options available that don t involve hormones. Lubricants and moisturizers Lubricants and moisturizers treat vaginal dryness. This improves comfort during sex. Multiple brand names are available over the counter at your local grocery store. Vaginal lubricants should be used during intercourse to reduce friction and pain with sex. They re water, silicone or oil based. These products are very short-acting. Vaginal moisturizers adhere to the vaginal tissue to help the cells maintain moisture. They re applied every one to three days as they re longer acting. Some natural oils, such as olive and coconut oil, may also be used as lubricants and moisturizers. [place] / Prognosis What can I expect if I ve been diagnosed with vaginal atrophy (GSM)? You don t have to just live with vaginal atrophy. Even if you re in menopause or postmenopausal, that doesn t mean you should have to deal with UTIs, vaginal itching or painful sex. Treatment for GSM can be very successful. Don t be afraid to try different treatments and work with your provider on a method that works best for you. Can vaginal atrophy (GSM) be reversed? Vaginal atrophy can t be cured, but you don t have to live with the discomfort. With proper diagnosis and treatment, the symptoms can be managed. Can vaginal atrophy (GSM) get worse? Yes, it can. That s why prompt treatment is important. The sooner you get treatment, the less likely it is that your vaginal atrophy will worsen. For example, the longer you go without estrogen, the dryer your vagina will become. Without treatment, your vaginal atrophy may get worse. Occasionally, atrophy can become so severe that it can significantly narrow your vaginal opening. This may make it harder to treat the atrophy if treatment is started too late. Living With What is it like living with vaginal atrophy (GSM)? Vaginal atrophy can seriously affect your quality of life in general, not just your sex life. The pain, dryness, burning/itching, spotting, bleeding, urinary problems, UTIs and discharge can make you very uncomfortable and interfere with your daily living. One in 4 people report that vaginal atrophy has had a negative impact on other areas of their lives including their sleep, sexual health and general happiness. How do I take care of myself? Prioritize your sexual health as much as any other aspect of your health. Look to your healthcare provider for answers to any questions and concerns. When should I see my healthcare provider for vaginal atrophy (GSM)? Even if you re not in menopause, be sure to report any symptoms of dryness, pain, burning/itching, urinary problems, unusual spotting or bleeding or discharge to your healthcare provider. If weeks go by and the [id number] moisturizers you re using for dryness don t work, you should see your healthcare provider. Also, always see your healthcare provider for any symptoms that negatively impact your daily life. documented in this encounter [facility] 05-23-2024 Note HNO ID: [id number] Author: ORI LANDIN DO Service: ? Author Type: Physician Type: Progress Notes Filed: 05/23/2024 16:45 Note Text: [facility] ESTABLISHED PATIENT NOTE/HISTORY AND PHYSICAL PATIENT: Dom Avila (68 year old) PCP: Clifton Hung MD DATE OF SERVICE: 05/23/2024 SUBJECTIVE: CHIEF COMPLAINT: Follow Up (No new complaints today. Denies urinary pain. Pt states she does feel like she has period cramps. Pt states she does have a history of constipation) HISTORY OF PRESENT ILLNESS: The patient was last seen by rOi Lord DO on 04/25/24 . Prior notes were reviewed. Patient returns today for follow up . In interim doing ok , has no new complaints and no change in urinary sx. Is having GSM and reports dyspareunia. 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 (HCC) (01/09/2017), Garibay's cyst of knee, left (03/02/2018), Breast neoplasm, Tis (DCIS), 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), CAD (coronary artery disease), Cataract, Colon polyp (2011), Controlled type 2 diabetes mellitus without complication, without long-term current use of insulin ([facility]) (10/22/2016), De Quervain's tenosynovitis, left (07/31/2019), Diabetic eye exam ([facility]) (01/16/2016), 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), 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), Encounter for Medicare annual wellness exam (04/08/2023), Essential hypertension (01/16/2016),Female pattern hair loss, Foot callus (05/26/2021), History of colon polyps, History of depression, History of hyperparathyroidism, History of transient ischemic attack (TIA) (10/29/2017), Irritable bowel syndrome with diarrhea (05/26/2021), Living will on file at physician's office (04/08/2023), Meniere disease, right (10/29/2017), Mixed hyperlipidemia (05/31/2009), Narcolepsy without cataplexy (01/16/2016), Obstructive sleep apnea on CPAP, Pancreatic insufficiency (04/08/2023), Psoriasis, RLS (restless legs syndrome) (02/22/2023), Rosacea, S/P angioplasty with stent (01/09/2017), Scalp itch, Seasonal allergies, Vitamin D deficiency (2012), and Well adult exam (01/16/2016). Past Surgical History: -Patient has a past surgical history that includes cholecystectomy (2004); past surgical history of (2004); total abdominal hysterect w/wo rmvl tube ovary (1995); past surgical history of; heart catheterization (2004); past surgical history of (10/2006); delivery only; low back disk surgery (2009); bunionectomy, lapidus-type (2009); colonoscopy AND polypectomy (10/12, 10/13); colonoscopy (08/07/2015); past surgical history of (2014); heart catheterization (01/04/2017); 2d echo (exep) (06/30/2017); stent placement (01/06/2017); stress test (04/20/2017); past surgical history of (Right, 10/2016); heart surgery hx (12/2016); colonoscopy flx dx w/collj spec when pfrmd (08/09/2018); esophagogastroduodenoscopy transoral diagnostic (08/09/2018); heart catheterization (10/2018); bx breast w/device 1st lesion stereotactic guid (Left, 03/25/2021); mastectomy, partial (Left, 04/08/2021); breast lumpectomy hx (Left, 04/08/2021); 2d echo (exep) (05/14/2021); 2d echo (exep) (09/16/2021); and repair, detached retina, laser (Right). Medications: -Patient has a current medication list which includes the following prescription(s): doxycycline, coenzyme q10, whnbfu-sfelkosm-banrwnh, lisinopril, fluconazole, estradiol, tamoxifen, pioglitazone, omeprazole, calcium citrate-vitamin d3, ezetimibe, metformin, ammonium lactate, clobetasol propionate, acetaminophen, nitroglycerin sublingual, ketoconazole, montelukast, metoprolol succinate er, lactobacillus acidophilus, and CPAP. Allergies: -Patient is allergic to brilinta [ticagrelor], crestor [rosuvastatin], keflex [cephalexin], lipitor [atorvastatin], lovastatin, and norco [hydrocodone-acetaminophen]. Family History: -Patient family history includes Coronary Artery Disease (age of onset: 25) in her father; Diabetes in her father, maternal grandfather, and paternal grandmother; Lung cancer in her brother; Pancreatic cancer in her mother; suicide in her son. Social History: -Patient reports that she quit smoking about 29 years ago. Her smoking use included cigarettes. She has a 4.5 pack-year smoking history. She has never used smokeless tobacco. She reports saira (more content not included)... [facility] 05-23-2024 History of Present illness Narrative Images from the original note were not included. [facility] ESTABLISHED PATIENT NOTE/HISTORY AND PHYSICAL PATIENT: Dom Avila (68 year old) PCP: Clifton Hung MD DATE OF SERVICE: 05/23/2024 SUBJECTIVE: CHIEF COMPLAINT: Follow Up (No new complaints today. Denies urinary pain. Pt states she does feel like she has period cramps. Pt states she does have a history of constipation) HISTORY OF PRESENT ILLNESS: The patient was last seen by Ori Lord DO on 04/25/24 . Prior notes were reviewed. Patient returns today for follow up . In interim doing ok , has no new complaints and no change in urinary sx. Is having GSM and reports dyspareunia. 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 ([facility]) (01/09/2017), Garibay's cyst of knee, left (03/02/2018), Breast neoplasm, Tis (DCIS), 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), CAD (coronary artery disease), Cataract, Colon polyp (2011), Controlled type 2 diabetes mellitus without complication, without long-term current use of insulin ([facility]) (10/22/2016), De Quervain's tenosynovitis, left (07/31/2019), Diabetic eye exam ([facility]) (01/16/2016), 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), 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), Encounter for Medicare annual wellness exam (04/08/2023), Essential hypertension (01/16/2016), Female pattern hair loss, Foot callus (05/26/2021), History of colon polyps, History of depression, History of hyperparathyroidism, History of transient ischemic attack (TIA) (10/29/2017), Irritable bowel syndrome with diarrhea (05/26/2021), Living will on file at physician's office (04/08/2023), Meniere disease, right (10/29/2017), Mixed hyperlipidemia (05/31/2009), Narcolepsy without cataplexy (01/16/2016), Obstructive sleep apnea on CPAP, Pancreatic insufficiency (04/08/2023), Psoriasis, RLS (restless legs syndrome) (02/22/2023), Rosacea, S/P angioplasty with stent (01/09/2017), Scalp itch, Seasonal allergies, Vitamin D deficiency (2012), and Well adult exam (01/16/2016). Past Surgical History: -Patient has a past surgical history that includes cholecystectomy (2004); past surgical history of (2004); total abdominal hysterect w/wo rmvl tube ovary (1995); past surgical history of; heart catheterization (2004); past surgical history of (10/2006); delivery only; low back disk surgery (2009); bunionectomy, lapidus-type (2009); colonoscopy & polypectomy (10/12, 10/13); colonoscopy (08/07/2015); past surgical history of (2014); heart catheterization (01/04/2017); 2d echo (exep) (06/30/2017); stent placement (01/06/2017); stress test (04/20/2017); past surgical history of (Right, 10/2016); heart surgery hx (12/2016); colonoscopy flx dx w/collj spec when pfrmd (08/09/2018); esophagogastroduodenoscopy transoral diagnostic (08/09/2018); heart catheterization (10/2018); bx breast w/device 1st lesion stereotactic guid (Left, 03/25/2021); mastectomy, partial (Left, 04/08/2021); breast lumpectomy hx (Left, 04/08/2021); 2d echo (exep) (05/14/2021); 2d echo (exep) (09/16/2021); and repair, detached retina, laser (Right). Medications: -Patient has a current medication list which includes the following prescription(s): doxycycline, coenzyme q10, zopqss-ogaokqon-brrcjgf, lisinopril, fluconazole, estradiol, tamoxifen, pioglitazone, omeprazole, calcium citrate-vitamin d3, ezetimibe, metformin, ammonium lactate, clobetasol propionate, acetaminophen, nitroglycerin sublingual, ketoconazole, montelukast, metoprolol succinate er, lactobacillus acidophilus, and CPAP. Allergies: -Patient is allergic to brilinta [ticagrelor], crestor [rosuvastatin], keflex [cephalexin], lipitor [atorvastatin], lovastatin, and norco [hydrocodone-acetaminophen]. Family History: -Patient family history includes Coronary Artery Disease (age of onset: 25) in her father; Diabetes in her father, maternal grandfather, and paternal grandmother; Lung cancer in her brother; Pancreatic cancer in her mother; suicide in her son. Social History: -Patient reports that she quit smoking about 29 years ago. Her smoking use included cigarettes. She has a 4.5 pack-year smoking history. She has never used smokeless tobacco. She reports that she does not drink alcohol and does not use drugs. I have confirmed and edited as necessary, the PFSH and ROS obtained by others. OBJECTIVE: PHYSICAL EXAMINATION: BP 137/85 Pulse 72 Constitutional: Well-developed, well-nourished. No acute distress. Psych: Normal mood and affect. Memory intact. Eyes: Lids appear normal. Conjunctivae are not injected. ENMT: External ears are normal. Hearing is grossly normal. Respiratory: Normal respiratory effort, no acute respiratory distress. No audible wheeze. Skin: Warm and dry. No visible rashes. Musculoskeletal: Ambulatory: Yes : Pelvic Exam: vulva normal without erythema or rash. Urethral meatus without prolapse, stenosis, or bleeding in supine position. + caruncle Urethra slightly hypermobile Cough stress test negative. Filled stress test not performed. Half-Speculum exam reveals vaginal tissues with Moderate atrophic changes. No abnormal discharge or lesion. Cystocele: Absent; Rectocele: Absent; Vaginal cuff/Uterine prolapse: Absent Adnexa mild on the R tenderness Kegels not tested Medical brusher tender present for exam: Lachelle Lemons DATA: Clinic: Urine dipstick shows: URINALYSIS: GLUCOSE UA (POCT) Negative 04/25/2024 BILIRUBIN UA (POCT) Negative 04/25/2024 KETONE UA (POCT) Negative 04/25/2024 SPECIFIC GRAVITY UA (POCT) 1.010 04/25/2024 HEMOGLOBIN/BLOOD UA (POCT) Negative 04/25/2024 PH UA (POCT) 6.0 04/25/2024 PROTEIN UA (POCT) Negative 04/25/2024 UROBILINOGEN UA (POCT) 0.2 04/25/2024 NITRITE UA (POCT) Negative 04/25/2024 LEUKOCYTES UA (POCT) Moderate 04/25/2024 COLOR UA (POCT) Yellow 04/25/2024 CLARITY UA (POCT) Clear 04/25/2024 Laboratory: Creatinine Date Value Ref Range Status 04/17/2024 0.78 0.58 - 0.96 mg/dL Final 04/02/2023 0.87 0.58 - 0.96 mg/dL Final 01/07/2023 0.78 0.58 - 0.96 mg/dL Final 11/25/2022 0.76 0.58 - 0.96 mg/dL Final Cultures: Culture Results - Past 1 Year Culture 07/23/2023 >=100,000 CFU/ml Escherichia coli 11/23/2023 10,000 -<50,000 CFU/ml Escherichia coli 01/18/2024 10,000 -<50,000 CFU/ml Normal urogenital holland 04/19/2024 <10,000 CFU/ml Normal urogenital holland 04/25/2024 10,000 -<50,000 CFU/ml Normal urogenital holland Susceptibility Tests - Past 1 Year Collected Organism Ampicillin Ampicillin/Sulbact Cefazolin Cefepime Ceftriaxone Ciprofloxacin Ertapenem Gentamicin Meropenem Nitrofurantoin Piperacillin/Tazobac Tobramycin Trimeth sulfameth 07/23/23 Escherichia coli R I S S S S S S S S S S S 11/23/23 Escherichia coli R S S S S R S S S S S S S 01/18/24 Normal urogenital holland 04/19/24 Normal urogenital holland 04/25/24 Normal urogenital holland ASSESSMENT/PLAN: 1. Urinary incontinence, mixed - ICD9: 788.33, ICD10: N39.46 (primary diagnosis) - chronic, stable - 2 pantiliners per day w/bother , will discuss OAB pathway next visit - URINALYSIS, WITH MICROSCOPIC 2. Genitourinary syndrome of menopause - ICD9: 627.8, ICD10: N95.8 - acute, newly dx - Reviewed with patient: symptoms of genitourinary syndrome of menopause may include, but is not limited to, genital symptoms of dryness, burning, and irritation; sexual symptoms of lack of lubrication, discomfort or pain, and impaired function; and urinary symptoms of urgency, dysuria, and recurrent urinary tract infections. - Vag estrogen cream per other provider; advised her I would be willing to Rx non estrogen vag cream if this isn't approved - Pt handout given 3. Microscopic hematuria - ICD9: 599.72, ICD10: R31.29 - Repeat UA today to determine next steps; if UA w/RBCs will discuss CTU and cysto at the next visit to complete w/u 4. Adenoma of right adrenal gland - ICD9: 227.0, ICD10: D35.01 - 2.4 cm R adrenal adenoma, will refer to Endo, which she also needs anyway for DM - CONSULT TO ENDOCRINOLOGY Plan: F/u ~4 weeks to discuss w/u for poss micro heme, and mgmt of NELL Again refer Endocrine for R adrenal adenoma -Patient will call the clinic or use MyChart should anything change or any new issues arise -All questions were answered Ori Lord DO Staff Urologist Addendum Aakash Lord 05/23/24 1637 : - Pt returned bladder diary She did not report the first day of void this volumes overnight are somewhat limited; did well in the daytime roughly every 1.5 to 7 hours; did have leaks after drinking coffee or approximately 20 ounces of water ; also drink water late in the evening and at night; and at night was voiding every 2.5 to 4 hours documented in this encounter [facility] 05-01-2024 History of Present illness Narrative Images from the original note were not included. This note was created using [employer]. Subjective Dom Avila is a 68 year old female. HPI About a week ago patient was cooking when she spilled some melted butter and brown sugar to the top of her left foot right near the first MTP joint. Patient notes that she is diabetic and presents today for evaluation of the foot. She thinks that the foot was somewhat erythematous yesterday but on evaluation today she notes she does not see that anymore. She denies any recent fevers any other injuries or health concerns. Review of Systems Constitutional: Negative for fever. Skin: Positive for color change and wound. Objective BP 126/78 Pulse 70 Temp 36.4 C (97.5 F) Resp 16 Wt 66.7 kg (147 lb 0.8 oz) SpO2 98% BMI 26.05 kg/m Physical Exam Vitals and nursing note reviewed. Constitutional: General: She is not in acute distress. Appearance: Normal appearance. She is not ill-appearing. HENT: Head: Normocephalic. Cardiovascular: Rate and Rhythm: Normal rate and regular rhythm. Pulmonary: Effort: Pulmonary effort is normal. Breath sounds: Normal breath sounds. Musculoskeletal: General: Normal range of motion. Cervical back: Normal range of motion. Skin: General: Skin is warm and dry. Comments: Approximately a 1 cm diameter eroded area of the skin over the dorsal aspect of the first MTP joint left foot consistent with a burn Neurological: General: No focal deficit present. Mental Status: She is alert. Psychiatric: Mood and Affect: Mood normal. Behavior: Behavior normal. Assessment and Plan ASSESSMENT/PLAN: 1. Burn, foot, second degree, left, initial encounter - ICD9: 945.22, ICD10: T25.222A On evaluation of the foot there was no streaking or surrounding erythema. Wound appears to be healing well at this time. Patient notes she has been using antibiotic cream. I encouraged her to gently wash the area 2 times per day and apply a fresh layer of antibiotic ointment and a clean dressing. She was to monitor closely for any increasing redness, swelling, streaking and return for reevaluation. At this point, I do not feel that antibiotics are needed. Julio Tavarez APRN.ELIZABETH documented in this encounter [facility] 04-25-2024 History of Present illness Narrative Scan on 04/21/2024 2:48 PM by Provider, KELLY Carnes: Consultation - Cardiology Shakeel Yang MA documented in this encounter [facility] 04-25-2024 Instructions Ori Landin DO - 04/25/2024 8:40 AM EDT Lower Urinary Tract Symptoms What are lower urinary tract symptoms? Lower urinary tract symptoms (LUTS) include various urination problems, such as: Feeling like you can t empty your bladder or that your bladder fills up too quickly. Having greater amounts of urine than normal. Having sudden urges to pee that are difficult to control. Needing to pee frequently, including in the middle of the night. Having a urine stream that s weak or delayed, or that starts and stops (drips). Peeing involuntarily, such as leaking when you sneeze, cough, laugh or have sex, leaking while running to the bathroom and leaking when you don t feel the urge to urinate. Straining to pee. Who gets lower urinary tract symptoms? LUTS can affect anyone, but symptoms are more common in men and people assigned male at (AMAB) and people over age 50. What are the most common causes of lower urinary tract symptoms? If you have lower urinary tract symptoms, talk to your primary care provider or a urologist. They ll diagnose the cause and help you manage the symptoms. LUTS is often caused by irritation, infection or obstruction in your urinary system: Bladder (bladder outlet obstruction). Kidneys (cysts, stones). Ureters (ureteral obstruction). Urethra (urethral stricture). The symptoms may be signs of a specific medical condition, including: Benign prostatic enlargement/hyperplasia. Kidney infection. Neurological health condition, such as multiple sclerosis. Tumors, such as prostate cancer. Urinary tract infection (UTI). Lower urinary tract symptoms can also be associated with: Diabetes. Erectile dysfunction. High blood pressure (hypertension). Obesity. Pelvic floor dysfunction. Sleep apnea. Thyroid disease. Using products that can irritate the bladder, such as nicotine, caffeine and alcohol. What tests might I have for lower urinary tract symptoms? To diagnose the cause of lower urinary tract symptoms, a healthcare provider will perform a physical exam and ask you: What symptoms do you have? How long have you had them? How much do they interfere with your life? Does anything make them worse or better? How much fluid do you drink each day? At what time of the day? Do you have a family history of LUTS? Do you have any medical conditions? What medications and substances do you use, including prescriptions, tkmp-hwl-yijlquf drugs, supplements, nicotine, caffeine and alcohol? Your healthcare provider may order tests, such as: Blood tests to check various things, including prostate-specific antigens in men. Urinalysis (urine test) to look for signs of infection. Rectal exam (for men and people AMAB), when a healthcare provider inserts a gloved finger into your rectum to feel your prostate gland. Imaging tests, usually an ultrasound test, to look at your bladder, kidneys and prostate. Post-void residual volume (amount of pee left on your bladder after urination) can be calculated with most imaging tests. Urodynamic test, where bladder volume, pressure and strength can be assessed. Cystoscopy, which uses a thin tube and tiny camera to examine the bladder and urethra. How are LUTS treated? Treatment options for lower urinary tract symptoms depend on the cause and how the symptoms affect your life. Your healthcare provider may recommend lifestyle changes such as: Adjusting the amount of fluids you drink or the times of day you consume liquids. Changing certain medications you take. Going to the bathroom at scheduled intervals throughout the day. Limiting or eliminating nicotine, caffeine and alcohol. Losing weight. Strengthening your pelvic floor muscles with Kegel exercises. Various medications may be used to treat LUTS, includin-alpha reductase inhibitors, such as finasteride and dutasteride. Antibiotics to treat infections. Alpha-blockers that can relax your bladder, such as alfuzosin or tamsulosin. Antihypertensives to relax the blood vessels, such as doxazosin and terazosin. Bladder antispasmodics, such as oxybutynin and mirabegron. Other causes of LUTS may be treated surgically. For example, if there s an obstruction, you may need an operation to remove whatever s causing the blockage. If your prostate is enlarged, your healthcare provider might recommend a procedure to remove part of it. When to Call the Doctor When should I seek medical treatment for LUTS? It s important to talk to a healthcare provider if you have any lower urinary tract symptoms. Even if the symptoms are mild, they may be signs of a developing health problem. And treatment can be more effective if started early. It s especially important to seek medical attention if LUTS are: Accompanied by blood in your pee. Causing discomfort or pain. Frequently interrupting your sleep patterns. Leading to anxiety or depression. Affecting your relationships, such as making you avoid social situations, intimacy or sex. Preventing you from doing the things you enjoy or leaving your house. A note from [facility] Lower urinary tract symptoms (LUTS) include a wide variety of problems with urination. Examples include involuntarily leaking urine or having sudden and strong urges to pee. LUTS may be signs of a health problem, so it s important to talk to a healthcare provider. documented in this encounter [facility] 04-25-2024 Note HNO ID: [id number] Author: ORI LANDIN DO Service: ? Author Type: Physician Type: Progress Notes Filed: 04/25/2024 09:28 Note Text: [facility] NEW CONSULT NOTE/NEW PATIENT VISIT/HISTORY AND PHYSICAL: Referring Provider: Francine Madrid APRN PCP: Clifton Hung MD Date of Service: 04/25/2024 SUBJECTIVE Chief Complaint: Consult (Patient states that she was referred for urinary frequency. She states that she gets up 2-3 times at night to urinate and denies any pain/ burning with urination. She does have some pressure in the bladder that comes and goes. She will have some leakage everyday and urgency occasionally. ) History of Present Illness: Dom Avila is a 68 year old female seen in consultation at the request of Danielle. Madrid for evaluation of LUTS . Patient reports LUTS worsening last year . Urinary Symptoms: Frequency: Yes Urgency: Yes Nocturia: 3 times per night to void. Stress urinary incontinence: Yes Urgency urinary incontinence: Yes Pad use: 2 pantiliners per day. She is bothered by her UI symptoms. Sexually active: Yes UTIs: 1 UTI's in the last year. She denies any history of hematuria. Bowel Symptoms: Stool consistency: constipation/diarrhea . Pelvic Organ Prolapse Symptoms and History: Number of children: 3. Vaginal deliveries: 2 section: 1. 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 ([facility]) (01/09/2017), Garibay's cyst of knee, left (03/02/2018), Breast neoplasm, Tis (DCIS), 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), Colon polyp (2011), Controlled type 2 diabetes mellitus without complication, without long-term current use of insulin ([facility]) (10/22/2016), De Quervain's tenosynovitis, left (07/31/2019), Diabetic eye exam (HCC) (01/16/2016), 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), 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), Encounter for Medicare annual wellness exam (04/08/2023), Essential hypertension (01/16/2016), Female pattern hair loss, Foot callus (05/26/2021), History of colon polyps, History of depression, History of hyperparathyroidism, History of transient ischemic attack (TIA) (10/29/2017), Irritable bowel syndrome with diarrhea (05/26/2021), Living will on file at physician's office (04/08/2023), Meniere disease, right (10/29/2017), Mixed hyperlipidemia (05/31/2009), Narcolepsy without cataplexy (01/16/2016), Obstructive sleep apnea on CPAP, Pancreatic insufficiency (04/08/2023), Psoriasis, RLS (restless legs syndrome) (02/22/2023), Rosacea, S/P angioplasty with stent (01/09/2017), Scalp itch, Seasonal allergies, Vitamin D deficiency (2012), and Well adult exam (01/16/2016). Past Surgical History: -Patient has a past surgical history that includes cholecystectomy (2004); past surgical history of (2004); total abdominal hysterect w/wo rmvl tube ovary (1995); past surgical history of; heart catheterization (2004); past surgical history of (10/2006); delivery only; low back disk surgery (2009); bunionectomy, lapidus-type (2009); colonoscopy AND polypectomy (10/12, 10/13); colonoscopy (08/07/2015); past surgical history of (2014); heart catheterization (01/04/2017); 2d echo (exep) (06/30/2017); stent placement (01/06/2017); stress test (04/20/2017); past surgical history of (Right, 10/2016); heart surgery hx (12/2016); colonoscopy flx dx w/collj spec when pfrmd (08/09/2018); esophagogastroduodenoscopy transoral diagnostic (08/09/2018); heart catheterization (10/2018); bx breast w/device 1st lesion stereotactic guid (Left, 03/25/2021); mastectomy, partial (Left, 04/08/2021); breast lumpectomy hx (Left, 04/08/2021); 2d echo (exep) (05/14/2021); 2d echo (exep) (09/16/2021); and repair, detached retina, laser (Right). Medications: -Patient has a current medication list which includes the following prescription(s): doxycycline, coenzyme q10, cusddk-tecwvnwr-ekvyfzi, lisinopril, estradiol, tamoxifen, pioglitazone, omeprazole, calcium citrate-vitamin d3, ezetimibe, ammonium lactate, clobetasol propionate, acetaminophen, nitroglycerin sublingual, ketoconazole, magnesium sulfate, montelukast, metoprolol succinate er, lactobacillus acidophilus, fluconazole, amlodipine, metformin, potassium chloride sr, and CPAP. Allergies: -Patient is allergic to brilinta [ticagrelor], crestor [rosuvastatin], keflex [cephalexin], lipito (more content not included)... [facility] 04-25-2024 History of Present illness Narrative Images from the original note were not included. [facility] NEW CONSULT NOTE/NEW PATIENT VISIT/HISTORY AND PHYSICAL: Referring Provider: Francine Madrid APRN PCP: Clifton Hung MD Date of Service: 04/25/2024 SUBJECTIVE Chief Complaint: Consult (Patient states that she was referred for urinary frequency. She states that she gets up 2-3 times at night to urinate and denies any pain/ burning with urination. She does have some pressure in the bladder that comes and goes. She will have some leakage everyday and urgency occasionally. ) History of Present Illness: Dom Avila is a 68 year old female seen in consultation at the request of Danielle. Madrid for evaluation of LUTS . Patient reports LUTS worsening last year . Urinary Symptoms: Frequency: Yes Urgency: Yes Nocturia: 3 times per night to void. Stress urinary incontinence: Yes Urgency urinary incontinence: Yes Pad use: 2 pantiliners per day. She is bothered by her UI symptoms. Sexually active: Yes UTIs: 1 UTI's in the last year. She denies any history of hematuria. Bowel Symptoms: Stool consistency: constipation/diarrhea . Pelvic Organ Prolapse Symptoms and History: Number of children: 3. Vaginal deliveries: 2 section: 1. 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 ([facility]) (01/09/2017), Garibay's cyst of knee, left (03/02/2018), Breast neoplasm, Tis (DCIS), 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), Colon polyp (2011), Controlled type 2 diabetes mellitus without complication, without long-term current use of insulin ([facility]) (10/22/2016), De Quervain's tenosynovitis, left (07/31/2019), Diabetic eye exam ([facility]) (01/16/2016), 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), 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), Encounter for Medicare annual wellness exam (04/08/2023), Essential hypertension (01/16/2016), Female pattern hair loss, Foot callus (05/26/2021), History of colon polyps, History of depression, History of hyperparathyroidism, History of transient ischemic attack (TIA) (10/29/2017), Irritable bowel syndrome with diarrhea (05/26/2021), Living will on file at physician's office (04/08/2023), Meniere disease, right (10/29/2017), Mixed hyperlipidemia (05/31/2009), Narcolepsy without cataplexy (01/16/2016), Obstructive sleep apnea on CPAP, Pancreatic insufficiency (04/08/2023), Psoriasis, RLS (restless legs syndrome) (02/22/2023), Rosacea, S/P angioplasty with stent (01/09/2017), Scalp itch, Seasonal allergies, Vitamin D deficiency (2012), and Well adult exam (01/16/2016). Past Surgical History: -Patient has a past surgical history that includes cholecystectomy (2004); past surgical history of (2004); total abdominal hysterect w/wo rmvl tube ovary (1995); past surgical history of; heart catheterization (2004); past surgical history of (10/2006); delivery only; low back disk surgery (2009); bunionectomy, lapidus-type (2009); colonoscopy & polypectomy (10/12, 10/13); colonoscopy (08/07/2015); past surgical history of (2014); heart catheterization (01/04/2017); 2d echo (exep) (06/30/2017); stent placement (01/06/2017); stress test (04/20/2017); past surgical history of (Right, 10/2016); heart surgery hx (12/2016); colonoscopy flx dx w/collj spec when pfrmd (08/09/2018); esophagogastroduodenoscopy transoral diagnostic (08/09/2018); heart catheterization (10/2018); bx breast w/device 1st lesion stereotactic guid (Left, 03/25/2021); mastectomy, partial (Left, 04/08/2021); breast lumpectomy hx (Left, 04/08/2021); 2d echo (exep) (05/14/2021); 2d echo (exep) (09/16/2021); and repair, detached retina, laser (Right). Medications: -Patient has a current medication list which includes the following prescription(s): doxycycline, coenzyme q10, xpmiuq-lvjlmeom-plybfrb, lisinopril, estradiol, tamoxifen, pioglitazone, omeprazole, calcium citrate-vitamin d3, ezetimibe, ammonium lactate, clobetasol propionate, acetaminophen, nitroglycerin sublingual, ketoconazole, magnesium sulfate, montelukast, metoprolol succinate er, lactobacillus acidophilus, fluconazole, amlodipine, metformin, potassium chloride sr, and CPAP. Allergies: -Patient is allergic to brilinta [ticagrelor], crestor [rosuvastatin], keflex [cephalexin], lipitor [atorvastatin], lovastatin, and norco [hydrocodone-acetaminophen]. Family History: -Patient family history includes Coronary Artery Disease (age of onset: 25) in her father; Diabetes in her father, maternal grandfather, and paternal grandmother; Lung cancer in her brother; Pancreatic cancer in her mother; suicide in her son. Social History: -Patient reports that she quit smoking about 29 years ago. Her smoking use included cigarettes. She has a 4.5 pack-year smoking history. She has never used smokeless tobacco. She reports that she does not drink alcohol and does not use drugs. I have confirmed and edited as necessary, the PFSH and ROS obtained by others. OBJECTIVE Physical Exam: BP 159/83 Pulse 60 SpO2 100% Constitutional: Well-developed, well-nourished. No acute distress. Psych: Normal mood and affect. Memory intact. Eyes: Lids appear normal. Conjunctivae are not injected. ENMT: External ears are normal. Hearing is grossly normal. Respiratory: Normal respiratory effort, no acute respiratory distress. No audible wheeze. Skin: Warm and dry. No visible rashes. Musculoskeletal: Ambulatory: Yes : No CVA TTP, no Leonard Post-Void Residual (PVR) by Bladder Scan: In order to evaluate bladder emptying, a postvoid residual was performed and patient agreed to this procedure. Procedure: The ultrasound unit was placed on the patient's abdomen in the suprapubic region after the patient had voided. A PVR of 0 ml was obtained by bladder scan. Laboratory Results: Urine dipstick shows: URINE POC GLUCOSE UA (POCT) Negative 04/25/2024 BILIRUBIN UA (POCT) Negative 04/25/2024 KETONE UA (POCT) Negative 04/25/2024 SPECIFIC GRAVITY UA (POCT) 1.010 04/25/2024 HEMOGLOBIN/BLOOD UA (POCT) Negative 04/25/2024 PH UA (POCT) 6.0 04/25/2024 PROTEIN UA (POCT) Negative 04/25/2024 UROBILINOGEN UA (POCT) 0.2 04/25/2024 NITRITE UA (POCT) Negative 04/25/2024 LEUKOCYTES UA (POCT) Moderate 04/25/2024 COLOR UA (POCT) Yellow 04/25/2024 CLARITY UA (POCT) Clear 04/25/2024 Creatinine Date Value Ref Range Status 04/17/2024 0.78 0.58 - 0.96 mg/dL Final 04/02/2023 0.87 0.58 - 0.96 mg/dL Final 01/07/2023 0.78 0.58 - 0.96 mg/dL Final 11/25/2022 0.76 0.58 - 0.96 mg/dL Final Culture Results - Past 1 Year Culture 07/23/2023 >=100,000 CFU/ml Escherichia coli 11/23/2023 10,000 -<50,000 CFU/ml Escherichia coli 01/18/2024 10,000 -<50,000 CFU/ml Normal urogenital holland 04/19/2024 <10,000 CFU/ml Normal urogenital holland Susceptibility Tests - Past 1 Year Collected Organism Ampicillin Ampicillin/Sulbact Cefazolin Cefepime Ceftriaxone Ciprofloxacin Ertapenem Gentamicin Meropenem Nitrofurantoin Piperacillin/Tazobac Tobramycin Trimeth sulfameth 07/23/23 Escherichia coli R I S S S S S S S S S S S 11/23/23 Escherichia coli R S S S S R S S S S S S S 01/18/24 Normal urogenital holland 04/19/24 Normal urogenital holland ASSESSMENT/PLAN: 1. Lower urinary tract symptoms (LUTS) - ICD9: 788.99, ICD10: R39.9 (primary diagnosis) - newly dx, uncertain prognosis Medical records personally reviewed and found significant for: Ref by Francine Madrid APRN - read 04/17/24 - pt seen Medicare wellness visit Labs also reviewed: Cr/Hgb/PLT WNL 04/2024 -Uncertain etiology may be OAB versus NGB from DM -Prior UA including today without infection last UTI 11/2023 -Pelvic exam next visit 2. Urinary incontinence, mixed - ICD9: 788.33, ICD10: N39.46 -Also newly diagnosed uncertain prognosis; same as #1 3. Microscopic hematuria - ICD9: 599.72, ICD10: R31.29 -Also newly diagnosed uncertain prognosis; no recent 4. History of UTI - ICD9: V13.02, ICD10: Z87.440 5. Abnormal findings on diagnostic imaging of urinary organs - ICD9: 793.5, ICD10: R93.49 - CT 11/2022 showed renal cyst, right adrenal adenoma; will discuss imaging next visit with patient Plan: Given bladder diary and hat to complete RTC pelvic Will discuss repeat upper tract imaging as she had cysts able adrenal adenoma and now intermittent microscopic hematuria -Patient will call the clinic or use MyChart should anything change or any new issues arise -All questions were answered Ori Lord DO Staff Urologist Consultation requested by Danielle. Madrid or an opinion regarding LUTS. My final recommendations will be communicated back to the requesting physician by way of shared medical record or letter via US mail Medical Decision Making: Problems: Moderate: New problem with uncertain prognosis Data: Unique source(s) for external note(s) reviewed: 1 Unique test result(s) reviewed: 2 Medical Decision Making Level: 4 - Moderate PVR 0 ml documented in this encounter [facility] 04-25-2024 Note HNO ID: [id number] Author: ?, ?, ? Service: ? Author Type: ? Type: Progress Notes Filed: 04/25/2024 09:28 Note Text: PVR 0 ml [facility] 04-20-2024 Telephone encounter Note Left message for patient to return call to office Ori Moody MA [facility] 04-20-2024 Miscellaneous Notes Left message for patient to return call to office Ori Moody MA I have placed referral to urology for her. Patient informed and verbalized understanding. States she has an achy feeling down low. Not always with urination but sometimes. Has urgency and frequency and states the achy feeling happens with the urgency sometimes. Hx of incontinence. She states her and Dr. Hung discussed urology consult in past but it wasn't something she ever followed up with. Inquiring if this is something she should proceed with? Jennifer Szymanski MA Urine culture negative for infection. documented in this encounter [facility] 04-20-2024 Telephone encounter Note I have placed referral to urology for her. [facility] 04-20-2024 Telephone encounter Note Patient informed and verbalized understanding. States she has an achy feeling down low. Not always with urination but sometimes. Has urgency and frequency and states the achy feeling happens with the urgency sometimes. Hx of incontinence. She states her and Dr. Hung discussed urology consult in past but it wasn't something she ever followed up with. Inquiring if this is something she should proceed with? Jennifer Szymanski MA [facility] 04-20-2024 Telephone encounter Note Urine culture negative for infection. [facility] 04-19-2024 Telephone encounter Note Patient called and notified that urine culture order placed. Patient is coming in to lab today. Sylwia Kirk RN [facility] 04-19-2024 Miscellaneous Notes Patient called and notified that urine culture order placed. Patient is coming in to lab today. Sylwia Kirk RN Pt states she is willing to come in to give a urine sample Please place order for lab urine Ori Moody MA Can you find out if patient can come in and give urine sample for urine culture to ensure it is not infection? TC to patient who states she has had an increase in urinary frequency but she has also increased her water intake so does not think they are related. Patient denies pain or burning with urination. Agreeable to starting Vit D and will make sure to keep appointment with Cardio. MADDISON Kaur Please find out if patient is having any urinary symptoms as her urine was abnormal. Also her vitamin d is low and I would recommend adding a separate vitamin d 5,000 units daily. Patient calls and states that today feels like she has no energy. Patient states that this has been off and on for the past couple of weeks. Patient has appointment with final application reviewer on Wednesday. Patient asking if labs reflect why she would not have any energy? Patient does not have joint pain or rash. Please review and advise, Sylwia Kirk RN documented in this encounter [facility] 04-18-2024 Telephone encounter Note Pt states she is willing to come in to give a urine sample Please place order for lab urine Ori Moody MA [facility] 04-18-2024 Telephone encounter Note Can you find out if patient can come in and give urine sample for urine culture to ensure it is not infection? [facility] 04-18-2024 Telephone encounter Note TC to patient who states she has had an increase in urinary frequency but she has also increased her water intake so does not think they are related. Patient denies pain or burning with urination. Agreeable to starting Vit D and will make sure to keep appointment with Cardio. MADDISON Kaur T [facility] 04-18-2024 Telephone encounter Note Please find out if patient is having any urinary symptoms as her urine was abnormal. Also her vitamin d is low and I would recommend adding a separate vitamin d 5,000 units daily. [facility] 04-18-2024 Telephone encounter Note Patient calls and states that today feels like she has no energy. Patient states that this has been off and on for the past couple of weeks. Patient has appointment with final application reviewer on Wednesday. Patient asking if labs reflect why she would not have any energy? Patient does not have joint pain or rash. Please review and advise, Sylwia Kirk RN [facility] 04-17-2024 Instructions Francine Madrid APRN.CNP - 04/17/2024 9:49 AM EDT Screening schedule The following prevention plan is recommended: Covid-19 Vaccine( season) due on 07/09/2023 Advance Directive Discussion due on 11/08/2023 Behavioral Health Screening Never done DTaP,Tdap,Td Vaccine(2 - Td or Tdap) due on 02/24/2024 HbA1C due on 03/29/2024 Urine Albumin:Creatinine Ratio due on 04/02/2024 Diabetic Foot Exam due on 04/08/2024 WHAT YOU CAN DO TO PREVENT FALLS Many falls can be prevented. By making some changes, you can lower your chances of falling. Four things YOU can do to prevent falls for you* and your caregiver 1. Begin a regular exercise program Exercise is one of the most important ways to lower your chances of falling. It makes you stronger and helps you feel better. Exercises that improve balance and coordination (like Arnaldo Chi) are the most helpful. Lack of exercise leads to weakness and increases your chances of falling. Ask your doctor or health care provider about the best type of exercise program for you. 2. Have your health care provider review your medicines Have your doctor or pharmacist review all the medicines you take, even tupl-men-bnflgcu medicines. As you get older, the way medicines work in your body can change. Some medicines, or combinations of medicines, can make you sleepy or dizzy and can cause you to fall. 3. Have your vision checked Have your eyes checked by an eye doctor at least once a year. You may be wearing the wrong glasses or have a condition like glaucoma or cataracts that limits your vision. Poor vision can increase your chances of falling. 4. Make your home safer About half of all falls happen at home. To make your home safer: Remove things you can trip over (like papers, books, clothes, and shoes) from stairs and places where you walk. Remove small throw rugs or use double-sided tape to keep the rugs from slipping. Keep items you use often in cabinets you can reach easily without using a step stool. Have grab bars put in next to your toilet and in the tub or shower. Use non-slip mats in the bathtub and on shower floors. Improve the lighting in your home. As you get older, you need brighter lights to see well. Hang light-weight curtains or shades to reduce glare. Have handrails and lights put in on all staircases. Wear shoes both inside and outside the house. Avoid going barefoot or wearing slippers. For more information, contact: Centers for Disease Control and Prevention www.cdc.gov/injury * This information may not apply if you have certain medical conditions. documented in this encounter [facility] 04-17-2024 History of Present illness Narrative Images from the original note were not included. Dom Avila is a 68 year old female here for a Medicare wellness visit. Medicare Health Risk Assessment General Health Good Exercise: Minutes/Day 30 min Exercise: Days/Week 2 days Alcohol: Daily Use Never Alcohol: Drinks/Day Patient does not drink Alcohol: 6 or more drinks Never Feel off balance Occasionally Concerns: Teeth/Dentures No Concerns: Sexual function Troubled by feelings No Frequency: Eating healthy diet 4-5 days a week ADLs requiring help No Safety precautions in home/vehicle Yes Smoke, vape, chews tobacco No Difficulty hearing Yes, hearing aids Difficulty seeing No Current Providers Specialists: I have reviewed specialist-related care of the patient in the medical record. Current care team: Patient Care Team: Clifton Hung MD as PCP - General (Family Medicine) Renata Barnhart MD as Physician (Radiation Oncology) Medical/Family history review Reviewed and updated problem list, medical/surgical/family/social history, medications, and allergies. Opioid use review Opioid Medications (last 90 days) No data to display Anxiety/Depression screening Recommendation: no further intervention at this time Cognitive screening Cognitive screening reviewed and No further action needed (score 3-5). Functional Observation Was the patient's Timed Up & Go test unsteady or ? 12 seconds? No Advance Care Planning Surrogate decision maker and/or advance care plan documented Measurements BP 135/76 Pulse 58 Resp 14 Wt 146 lb (66.2kg) Vision Screening: Follows with optometry/ophthalmology Assessment/Plan Medicare annual wellness visit, subsequent (Z00.00) - Counseled on healthy diet and regular exercise - Fall avoidance information provided - Personalized prevention plan provided - Discussed need for and benefit of weight loss. BMI 25.87 kg/(m^2) Chief Complaint Patient presents with: Follow Up HPI Dom Avila is a 68 year old female who presents here today for Above Complaints.. Patient presents for annual wellness. Patient reports her lisinopril was recently decreased due to dizziness which has improved. Reports some orthostatic hypotension. Past medical history, appointments, medications, allergies reviewed. 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 CABG Diabetes Father Diabetes Paternal Grandmother Diabetes Maternal Grandfather other (Lung cancer) Brother other (suicide) Son may of been depression Patient Allergies ALLERGIES Allergen Reactions Brilinta [Ticagrelo* Shortness of Breath Crestor [Rosuvastat* Myalgia Keflex [Cephalexin] Other: See Comments facial flushing Lipitor [Atorvastat* Other: See Comments myalgia Lovastatin Other: See Comments myalgia Hughes [Hydrocodone-* Itching Current Medications Current Outpatient Medications on File Prior to Visit Medication Sig lisinopril (ZESTRIL) 30 mg tablet Take 1 tablet by mouth twice daily (Patient taking differently: Take 30 mg by mouth once daily.) fluconazole (DIFLUCAN) 150 mg tablet 1 tab by mouth every other day for 3 doses estradiol (ESTRACE) 0.01 % (0.1 mg/gram) vaginal cream Use 1 g vaginally as directed. Insert 1 gm vaginally every night x 14 nights then insert 1 gm vaginally twice weekly tamoxifen (NOLVADEX) 20 mg tablet Take 1 tablet (20 mg) by mouth once daily. pioglitazone (ACTOS) 15 mg tablet Take 1 tablet by mouth once daily. omeprazole (PRILOSEC) 40 mg capsule Take 1 capsule by mouth once daily. amLODIPine (NORVASC) 2.5 mg tablet Take 1 tablet by mouth every afternoon. Calcium Citrate-Vitamin D3 (CITRACAL+D) 315 mg-6.25 mcg (250 unit) tab Take 2 tablets by mouth once daily. ftwhec-hupbwhnq-oycoryn (CREON) 12,000-38,000 -60,000 unit delayed release capsule Take by mouth three times daily with meals. ezetimibe (ZETIA) 10 mg tablet Take 1 tablet by mouth once daily. metFORMIN (GLUCOPHAGE) 500 mg tablet Take 2 tablets by mouth twice daily with meals. potassium chloride SR (MICRO-K) 10 mEq CR [...] by mouth twice daily. Per Dr. Gomez LACTOBACILLUS ACIDOPHILUS (PROBIOTIC ORAL) Take 1 tablet [...] REVIEW OF SYSTEMS SEE HPI EXAM: BP 135/76 Pulse (!) 58 Resp 14 Wt 66.2 kg (146 lb) BMI 25.87 kg/m General Appearance: Well appearing, alert, in no acute distress, well-hydrated, well nourished.. Skin: Skin color, texture, turgor normal, no suspicious rashes or lesions. Lungs: Lungs clear to auscultation. No wheezing, rhonchi, rales.. Heart: RRR without murmur, gallop, or rubs. No ectopy. Abdomen: Normal abdominal exam, Abdomen soft, non-tender. Bowel sounds normal. No masses, organomegaly. Musculoskeletal: No joint swelling, deformity, or tenderness. Peripheral Pulses: Normal. Neurologic: Gait normal. Reflexes normal and symmetric. Sensation grossly intact. Diabetic Foot Exam: Feet: Shoes and socks removed, no deformities, ulcers, calluses, and normal distal pulses Skin: warm and dry Vascular Pulses: Normal SEMMES-ARGELIA MONOFILAMENT TESTING Left Foot Right Foot Dorsal Surface Intact Dorsal Surface Intact Plantar Surface Diminished 3/9 sites Plantar Surface Diminished 3/9 sites Health Maintenance List Covid-19 Vaccine( season) due on 07/09/2023 Advance Directive Discussion due on 11/08/2023 Behavioral Health Screening Never done DTaP,Tdap,Td Vaccine(2 - Td or Tdap) due on 02/24/2024 HbA1C due on 03/29/2024 Urine Albumin:Creatinine Ratio due on 04/02/2024 Diabetic Foot Exam due on 04/08/2024 LDL Cholesterol due on 09/29/2024 Mammogram Screening due on 03/09/2025 Annual PCP Team Chronic Disease Visit due on 03/22/2025 BP Controlled (<130/80) due on 03/22/2025 Dilated Retinal Exam due on 03/27/2025 Colorectal Cancer Screening due on 08/09/2028 Bone Density Screening Completed Influenza Vaccine Completed RSV Vaccine Completed Hepatitis C Screening Completed Shingrix Vaccine Completed Pneumococcal Vaccine: 65+ Completed Cervical Cancer Screening Discontinued ASSESSMENT/PLAN: 1. Essential hypertension - ICD9: 401.9, ICD10: I10 (primary diagnosis) - Controlled - Continue current medications - Recommend home blood pressure monitoring, to bring results to next visit - Encouraged sodium restriction, DASH or Mediterranean diet - Recommend regular aerobic exercise - Discussed need for and benefit of weight loss. BMI 25.87 kg/(m^2) - COMPLETE BLOOD COUNT AND DIFFERENTIAL - URINALYSIS, WITH MICROSCOPIC - LISINOPRIL 30 MG TABLET 2. Controlled type 2 diabetes mellitus without complication, without long-term current use of insulin (HCC) - ICD9: 250.00, ICD10: E11.9 - Control undetermined, due for labs - Continue current medications - Counseled on healthy diet and regular exercise - Discussed need for and benefit of weight loss. BMI 25.87 kg/(m^2) - HEMOGLOBIN A1C - ALBUMIN/CREATININE RATIO, URINE - COMPREHENSIVE METABOLIC PANEL - URINALYSIS, WITH MICROSCOPIC 3. Mixed hyperlipidemia - ICD9: 272.2, ICD10: E78.2 - Control undetermined, due for labs - Continue current medications - Counseled on healthy diet and regular exercise - Discussed need for and benefit of weight loss. BMI 25.87 kg/(m^2) - LIPID PANEL, NONFASTING 4. Vitamin D deficiency - ICD9: 268.9, ICD10: E55.9 - VITAMIN D 25 HYDROXY 5. Narcolepsy without cataplexy - ICD9: 347.00, ICD10: G47.419 -Stable 6. RLS (restless legs syndrome) - ICD9: 333.94, ICD10: G25.81 -not currently on medication therapy 7. Obstructive sleep apnea on CPAP - ICD9: 327.23, ICD10: G47.33 -Wears CPAP nightly 8. Irritable bowel syndrome with diarrhea - ICD9: 564.1, ICD10: K58.0 -Continue Creon 9. Advance directive discussed with patient - ICD9: V65.49, ICD10: Z71.89 -Reviewed 10. Encounter for Medicare annual wellness exam - ICD9: V70.0, ICD10: Z00.00 - Counseled on healthy diet and regular exercise - Discussed need and benefit for weight loss. BMI 25.87 kg/(m^2) - Follow up for annual exam in one year 11. Living will on file at physician's office - ICD9: V49.89, ICD10: Z78.9 -Reviewed 12. Ductal carcinoma in situ (DCIS) of left breast - ICD9: 233.0, ICD10: D05.12 -Follows with oncology -Continue tamoxifen 13. Risk of exposure to Lyme disease - ICD9: V15.89, ICD10: Z91.89 - DOXYCYCLINE HYCLATE 100 MG TABLET Francine Madrid APRN.[employer] documented in this encounter [facility] 03-23-2024 Telephone encounter Note The following approved medication requests have been transmitted electronically. Requested Prescriptions Signed Prescriptions Disp Refills amoxicillin-clavulanate potassium (AUGMENTIN) 875-125 mg per tablet 20 tablet 0 Sig: Take 1 tablet by mouth two times a day for 10 days. Authorizing Provider: CLIFTON HUNG MD [facility] 03-23-2024 Miscellaneous Notes The following approved medication requests have been transmitted electronically. Requested Prescriptions Signed Prescriptions Disp Refills amoxicillin-clavulanate potassium (AUGMENTIN) 875-125 mg per tablet 20 tablet 0 Sig: Take 1 tablet by mouth two times a day for 10 days. Authorizing Provider: CLIFTON HUNG MD Nancy from [facility] calls and reports that pharmacy received order for cefadroxil. Patient reported to her that she is highly allergic to cephalexin which is in the same class as ordered medication. Pharmacy asking if provider wants to change medication? Please review and advise, Sylwia Kirk RN documented in this encounter [facility] 03-23-2024 Telephone encounter Note Nancy from [facility] calls and reports that pharmacy received order for cefadroxil. Patient reported to her that she is highly allergic to cephalexin which is in the same class as ordered medication. Pharmacy asking if provider wants to change medication? Please review and advise, Sylwia Kirk RN [facility] 03-22-2024 History of Present illness Narrative Chief Complaint Patient presents with: Cough HPI Dom Avila is a 68 year old female who presents here today for cough/sore throat and sinus. No fever or chills; No Nausea/Vomiting. Some Diarrhea. Started last Wednesday. Has a lot of fatigue. Cough is productive in the AM with green mucus. Has green nasal discharge. Has some maxillary sinus tenderness. Neck is tender. Patient has had symptoms since Wednesday. was in the hospital and tested positive for RSV/Lung infection. Past medical history, appointments, medications, allergies reviewed. 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 CABG Diabetes Father Diabetes Paternal Grandmother Diabetes Maternal Grandfather other (Lung cancer) Brother other (suicide) Son may of been depression Patient Allergies ALLERGIES Allergen Reactions Brilinta [Ticagrelo* Shortness of Breath Crestor [Rosuvastat* Myalgia Keflex [Cephalexin] Other: See Comments facial flushing Lipitor [Atorvastat* Other: See Comments myalgia Lovastatin Other: See Comments myalgia Hughes [Hydrocodone-* Itching Current Medications Current Outpatient Medications on File Prior to Visit Medication Sig estradiol (ESTRACE) 0.01 % (0.1 mg/gram) vaginal cream Use 1 g vaginally as directed. Insert 1 gm vaginally every night x 14 nights then insert 1 gm vaginally twice weekly tamoxifen (NOLVADEX) 20 mg tablet Take 1 tablet (20 mg) by mouth once daily. pioglitazone (ACTOS) 15 mg tablet Take 1 tablet by mouth once daily. omeprazole (PRILOSEC) 40 mg capsule Take 1 capsule by mouth once daily. lisinopril (ZESTRIL) 30 mg tablet Take 1 tablet by mouth twice daily amLODIPine (NORVASC) 2.5 mg tablet Take 1 tablet by mouth every afternoon. Calcium Citrate-Vitamin D3 (CITRACAL+D) 315 mg-6.25 mcg (250 unit) tab Take 2 tablets by mouth once daily. rldghm-ixhhzvpg-cpxbtpt (CREON) 12,000-38,000 -60,000 unit delayed release capsule Take by mouth three times daily with meals. ezetimibe (ZETIA) 10 mg tablet Take 1 tablet by mouth once daily. metFORMIN (GLUCOPHAGE) 500 mg tablet Take 2 tablets by mouth twice daily with meals. potassium chloride SR (MICRO-K) 10 mEq CR [...] by mouth twice daily. Per Dr. Gomez LACTOBACILLUS ACIDOPHILUS (PROBIOTIC ORAL) Take 1 tablet by mouth once daily. CPAP No current facility-administered medications on file prior to visit. Social History Social History Tobacco Use Smoking status: Former Packs/day: 1.50 Years: 3.00 Additional pack years: 0.00 Total pack years: 4.50 Types: Cigarettes Quit date: 11/08/1994 Years since quittin.3 Smokeless tobacco: Never Tobacco comments: smoked 3 years in mid 90s Vaping Use Vaping Use: Never used Substance Use Topics Alcohol use: No Drug use: No Review of Symptoms REVIEW OF SYSTEMS See HPI EXAM: BP 120/68 (BP Site: Left Arm, BP Position: Sitting, BP Cuff Size: Regular Adult) Pulse 81 Temp 36.8 C (98.3 F) (Tympanic) Resp 16 Wt 66.2 kg (146 lb) SpO2 98% BMI 25.87 kg/m General Appearance: Well appearing, alert, in no acute distress, well-hydrated, well nourished.. Eyes: Anicteric sclera. Pupils are equally round. Extraocular movements are intact. . Ears: External ears, TM's normal, canals clear. Nose/Sinuses: Nares normal, septum midline, mucosa normal, no drainage or sinus tenderness. Oropharynx: Lips, mucosa, and tongue normal, teeth and gums normal, oropharynx had mild erythema. Neck: Supple, no adenopathy; thyroid symmetric, normal size, no bruits. Lungs: Lungs clear to auscultation. No wheezing, rhonchi, rales.. Heart: RRR without murmur, gallop, or rubs. No ectopy. Abdomen: Normal abdominal exam, Abdomen soft, non-tender. Bowel sounds normal. No masses, organomegaly. Health Maintenance List Covid-19 Vaccine(2022- season) due on 07/09/2023 Advance Directive Discussion due on 11/08/2023 Behavioral Health Screening Never done DTaP,Tdap,Td Vaccine(2 - Td or Tdap) due on 02/24/2024 Urine Albumin:Creatinine Ratio due on 04/02/2024 Diabetic Foot Exam due on 04/08/2024 HbA1C due on 03/29/2024 BP Controlled (<130/80) due on 04/08/2024 LDL Cholesterol due on 09/29/2024 Dilated Retinal Exam due on 01/06/2025 Annual PCP Team Chronic Disease Visit due on 01/13/2025 Mammogram Screening due on 03/09/2025 Colorectal Cancer Screening due on 08/09/2028 Bone Density Screening Completed Influenza Vaccine Completed RSV Vaccine Completed Hepatitis C Screening Completed Shingrix Vaccine Completed Pneumococcal Vaccine: 65+ Completed Pap Testing Discontinued Data reviewed Latest Ref Rng 03/22/2024 Strep A (POCT) Negative Negative Procedural Control Valid A/P ASSESSMENT/PLAN: 1. Pharyngitis, unspecified etiology - ICD9: 462, ICD10: J02.9 (primary diagnosis) - suspect viral - Rapid Strep negative in the office today - Discussed supportive care treatment with fluids, rest and analgesia. - The patient may also use OTC cough and cold meds as needed and warm salt water gargles, throat lozenges and/or OTC throat spray as needed. - STREP A MOLECULAR (POC) 2. Respiratory illness - ICD9: 519.9, ICD10: J98.9 Check - COVID & INFLUENZA A/B & RSV NAAT, ROUTINE - if this is RSV will place her on a medrol dose pack. Advised her to increase her fluids and watch her sugars. 3. Bacterial sinusitis - ICD9: 473.9, 041.9, ICD10: J32.9, B96.89 - Will begin treatment with as per antibiotic as written, see orders Requested Prescriptions Pending Prescriptions Disp Refills cefADROxil (DURICEF) 500 mg capsule 20 capsule 0 Sig: Take 1 capsule by mouth two times a day. fluconazole (DIFLUCAN) 150 mg tablet 3 tablet 1 Si tab by mouth every other day for 3 doses methylPREDNISolone (MEDROL, JUANITA,) 4 mg Dose-Pack 21 tablet 0 Sig: Follow dosing instructions, take with food. F/u if no improving. If breathing becomes an issue she is to go to the ER. Clifton Hung MD documented in this encounter [facility] 03-15-2024 Telephone encounter Note Patient notified. Reviewed directions. Updated pharmacy to [facility]. Caro Hernandez RN [facility] 03-15-2024 Miscellaneous Notes Patient notified. Reviewed directions. Updated pharmacy to [facility]. Caro Hernandez RN Vaginal estrace cream to be prescribed - please verify pharmacy. Please notify patient and review use. Sima Dumont APRN.ELIZABETH Patient saw Oncology providers ok'd estrogen cream. Please advise. documented in this encounter [facility] 03-14-2024 Telephone encounter Note Vaginal estrace cream to be prescribed - please verify pharmacy. Please notify patient and review use. Sima Dumont APRN.REPAIRER RESISTANCE WELDING MACHINES [facility] 03-14-2024 Telephone encounter Note Patient saw Oncology providers ok'd estrogen cream. Please advise. [facility] 03-14-2024 History of Present illness Narrative Chief Complaint Patient presents with: Established Patient HPI: Dom Avila is a 68 year old female who presents here today for follow up DCIS. Per Dr. Georges previous note: H/o uyu-apmnfpe-uwbzsiyek diabetes mellitus, hypertension, ASCAD, and TIA who [...] breast lumpectomy for DCIS on 04/08/2021 at [facility] Pathology (from [facility]) reveals - ductal carcinoma in situ...,size of DCIS - 1.0 x 0.4 cm...,architectural type - cribriform..., nuclear grade 1-2..., necrosis - present central (expansive comedo necrosis)..., biopsy cavity is 0.5 cm from closest anterior margin (which is skin)..., ER >95%, LA >95% Postoperative course is unremarkable with no swelling or pain in her lumpectomy site. She is here today to discuss adjuvant therapy and chemoprevention for breast cancer. RADIATION:06/03/21 - 06/24/21 Current therapy:Tamoxifen Began after radiation No new concerns today. Appetite:Good. Wt. up 3# since 2022 Energy level:Good. Denies fevers or recent illness since Oct & Nov. Had covid and RSV. Resp:denies cough or sob-follow up by PULM h/o seasonal allergies/sleep apnea-wears CPAP at hs Cardiac:denies chest pain/occ. palpitations-Followed by cardiology twice yearly GI:denies abd pain, n/v, h/o IBS, occ. constipation/diarrhea-followed by Friend/GI :denies dysuria/hematuria Extrem:denies pain Endo:hot flashes Not really. 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 Past medical history, appointments, medications, allergies reviewed. No changes. EXAM: BP 144/85 Pulse 67 Temp 36.5 C (97.7 F) (Temporal) Wt 66.6 kg (146 lb 14.4 oz) SpO2 100% BMI 26.03 kg/m APPEARANCE Well appearing, alert, in no acute distress, well-hydrated, well nourished. HEART RRR with normal S1 and S2, no murmurs LUNG clear to auscultation BREAST FEMALE no mass/nodule b/l, L scar laterally/radiation changes LYMPH NODES No cervical lymphadenopathy, No [...] on exam. - Tolerating tamoxifen well. - Reviewed mammogram with pt. - Continue tamoxifen. Rx sent. 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 - Mammogram due March 2025. - Follow up in 6 months. - Pt. aware to call office with any questions/concerns. The patient indicates understanding of these issues and agrees with the plan. All documentation from previous visit of 08/27/23-Dr. Georges/myself was copied and pasted, documentation has been reviewed and edited as necessary for today's visit. Chad Mariee APRN.ELIZABETH documented in this encounter [facility] 03-09-2024 Note Formatting of this n ote might be different from the original. March 10, 2024 PID: [id number] Dom Avila [address] [place] [address] Dear Ms. Avila, We are pleased to inform you that the results of your recent breast imaging exam on 03/09/2024 are normal. Early detection of cancer is very important. We also understand recommendations regarding breast cancer screening are controversial. Please discuss with your primary care provider which strategy is best for you and whether a mammogram is right for you. Your imaging studies and report will be kept on file at [facility] as part of your permanent medical record and are available for your continuing care. Thank you for allowing us to help in meeting your health care needs. Sincerely, Dr. Hwang Interpreting Radiologist [facility] (Normal over 40) [facility] 03-09-2024 Miscellaneous Notes March 10, 2024 PID: [id number] Dom Avila [address] [place] [address] Dear Ms. Avila, We are pleased to inform you that the results of your recent breast imaging exam on 03/09/2024 are normal. Early detection of cancer is very important. We also understand recommendations regarding breast cancer screening are controversial. Please discuss with your primary care provider which strategy is best for you and whether a mammogram is right for you. Your imaging studies and report will be kept on file at [facility] as part of your permanent medical record and are available for your continuing care. Thank you for allowing us to help in meeting your health care needs. Sincerely, Dr. Hwang Interpreting Radiologist [facility] (Normal over 40) documented in this encounter [facility] 03-09-2024 History of Present illness Narrative Radiology Service Progress Note PATIENT NAME: Dom Avila DATE OF SERVICE: March 09, 2024 TIME: 8:46 AM PATIENT IDENTITY VERIFICATION COMPLETED USING TWO (2) IDENTIFIERS: Name and Date of confirmed by patient verbally. FALL SCREENING: Has the patient had 2 falls in the last year or 1 fall with injury or currently using an Ambulatory Assistive Device (Walker, Cane, Wheelchair, Crutches, etc.)? No PATIENT GENDER DATA: Female. status: : No status: NO. PATIENT RELEVANT IMPLANT DATA REVIEWED: Not Applicable PATIENT PRESENTS WITH AN IMPLANTABLE OR ATTACHED HOT END OPERATOR: No RADIOLOGY DEPARTMENT: Mammography PERIPHERAL IV DATA: Not applicable SIGNED BY: Brandon Snow March 09, 2024 8:46 AM documented in this encounter [facility] 02-29-2024 Note Addended by: CHERISE FRANCIS on: 02/29/2024 09:24 AM Modules accepted: Orders [facility] 02-29-2024 Miscellaneous Notes Addended by: CHERISE HYATT on: 02/29/2024 09:24 AM Modules accepted: Orders Pt has changed pharmacy to [facility] and needs new rx sent to them. Patient has been identified by name and date of : Yes, Provider Dick Pharmacy phones for refill(s): Requested Prescriptions Pending Prescriptions Disp Refills pioglitazone (ACTOS) 15 mg tablet 30 tablet 5 Sig: Take 1 tablet by mouth once daily. Date of last office visit in primary care: 01/14/2024 Date of next office visit in primary care: 04/17/2024 Please advise. Thank you. Em Mahmood LPN. documented in this encounter [facility] 02-29-2024 Telephone encounter Note Pt has changed pharmacy to [facility] and needs new rx sent to them. Patient has been identified by name and date of : Yes, Provider Dick Pharmacy phones for refill(s): Requested Prescriptions Pending Prescriptions Disp Refills pioglitazone (ACTOS) 15 mg tablet 30 tablet 5 Sig: Take 1 tablet by mouth once daily. Date of last office visit in primary care: 01/14/2024 Date of next office visit in primary care: 04/17/2024 Please advise. Thank you. Em Mahmood LPN. [facility] 02-15-2024 Miscellaneous Notes Patient has been identified by name and date of : Yes Patient phones for refill(s): Requested Prescriptions Pending Prescriptions Disp Refills omeprazole (PRILOSEC) 40 mg capsule 30 capsule 5 Sig: Take 1 capsule by mouth once daily. Date of last office visit in primary care: 01/14/2024 Date of next office visit in primary care: 04/17/2024 Please advise. Thank you. Delmer Valdes LPN. documented in this encounter [facility] 01-26-2024 Miscellaneous Notes Patient has been identified by name and date of : Yes, Provider Dr Hung Date 01/26/24 Time 10:03 am Pharmacy phones for refill(s): Requested Prescriptions Pending Prescriptions Disp Refills lisinopril (ZESTRIL) 30 mg tablet [Pharmacy Med Name: Lisinopril 30 MG Oral Tablet] 60 tablet 0 Sig: Take 1 tablet by mouth twice daily Date of last office visit in primary care: 01/14/2024 Date of next office visit in primary care: 04/17/2024 Please advise. Thank you. Latrice Dunn LPN. documented in this encounter [facility] 01-23-2024 Miscellaneous Notes The following approved medication requests have been transmitted electronically. Requested Prescriptions Signed Prescriptions Disp Refills pioglitazone (ACTOS) 15 mg tablet 30 tablet 5 Sig: Take 1 tablet by mouth once daily. Clifton Hung MD documented in this encounter [facility] 01-18-2024 Instructions Sima Dumont APRN.ELIZABETH - 01/18/2024 2:38 PM EDT Discuss with oncology use of vaginal estrogen cream for genitourinary syndrome of menopause. documented in this encounter [facility] 01-18-2024 History of Present illness Narrative Advertising Sales Executive offered: Patient declines. Dom Avila is a 68 year old female who presents for problem visit pain with urination, urinary frequency and vaginal discharge with odor HPI: Intermittent dysuria and urinary frequency - no symptoms yesterday but has symptoms today. Treated for UTI 2 months ago. Also complains of yellowish vaginal discharge with odor which just does not smell right. Rarely sexually active. Taking a GI probiotic and occasionally uses Revaree vaginal hyaluronic acid suppositories. 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 CABG Diabetes Father Diabetes Paternal [...] use: No Current Outpatient Medications Medication Sig amLODIPine (NORVASC) 2.5 mg tablet Take 1 tablet by mouth every afternoon. lisinopril (ZESTRIL) 30 mg tablet Take 1 tablet by mouth two times a day. Calcium Citrate-Vitamin D3 (CITRACAL+D) 315 mg-6.25 mcg (250 unit) tab Take 2 tablets by mouth once daily. pjrajs-aezrzoxy-xumicvk (CREON) 12,000-38,000 -60,000 unit delayed release capsule [...] by mouth twice daily. Per Dr. Gomez LACTOBACILLUS ACIDOPHILUS (PROBIOTIC ORAL) Take 1 tablet by mouth once daily. CPAP No current facility-administered medications for this visit. Allergies As of Date: 01/18/2024 Allergen Noted Reaction BRILINTA [TICAGRELOR] 06/28/2017 Shortness of Breath CRESTOR [ROSUVASTATIN] 04/10/2020 Myalgia KEFLEX [CEPHALEXIN] 02/02/2006 Other: See Comments LIPITOR [ATORVASTATIN] 07/21/2013 Other: See Comments LOVASTATIN 07/21/2013 Other: See Comments NORCO [HYDROCODONE-ACETAMINOPHEN] 10/29/2016 Itching Fully Assessed 12/31/2023 REVIEW OF SYSTEMS Abdomen: No bloating, early satiety, indigestion, or increased flatulence. No abdominal pain, nausea, vomiting, diarrhea, or constipation. Bladder: see HPI. Allergies and current medication updated:Yes EXAM: BP 162/72 Wt 147 lb (66.7kg) GENERAL: pleasant, female in no apparent distress CHEST: Normal inspiratory effort ABDOMEN: soft, non-tender, and no masses PELVIC: external genitalia normal, normal Bartholin's glands, urethra, [place]'s glands, no vulvar lesions, physiologic discharge present, normal appearing perineal body and perianal region, cervix surgically absent. Vaginal olmstead atrophic - pale skin with lack of rugae, inner vulva irritated. BIMANUAL: no adnexal masses, non-tender, and uterus surgically absent NEURO: alert and oriented x3,exam grossly non-focal ASSESSMENT/PLAN: 1. Dysuria - ICD9: 788.1, ICD10: R30.0 (primary diagnosis) - 2 UTI's in past year - UA DIP, URINE (POC) - trace leuks in urine - URINE CULTURE 2. Urinary frequency - ICD9: 788.41, ICD10: R35.0 See above - URINE CULTURE 3. Vaginal discharge - ICD9: 623.5, ICD10: N89.8 - BACT/CHINO VAG GRAM STAIN 4. Genitourinary syndrome of menopause - ICD9: 627.8, ICD10: N95.8 - discussed treatment with vaginal hyaluronic acid or vaginal estrogen. - She will discuss with oncology use of vaginal estrogen cream for genitourinary syndrome of menopause. In the meantime, she plans to resume Revaree 2-3 times a week. Will notify of results. Follow- up as needed. Sima Dumont APRN.REPAIRER RESISTANCE WELDING MACHINES Medical Decision Making: Problems: Moderate: 1+ chronic illnesses with change and 2+ stable chronic illnesses Data: Unique test(s) ordered: 3+ Medical Decision Making Level: 4 - Moderate documented in this encounter [facility] 01-18-2024 Miscellaneous Notes Addressed in TE 01/17/24. Em Mahmood LPN documented in this encounter [facility] 01-18-2024 Miscellaneous Notes Called the lab and was advised there are no special instructions for pt's labwork. Called pt and advised pt of this. Em Mahmood LPN Images from the original note were not included. Pt reports she has only had insulin when she was in the hospital and they used it to bring sugars down. Pt reports she'd rather not start insulin until she finds out what the tests show. Pt sent the following message in : 01/18/24 9:[address] Hung, I scheduled the lab work for today at 3pm in [facility]. I will be there visiting Dr. Dumont prior to lab work. Only thing I need to know is do I fast for this and can I have decaf coffee? Thanks!! ~ Dom Mahmood LPN Left message for patient to contact office. Shakeel Yang MA Let patient know I placed order to check to see if she is even making insulin any longer. If not then the next step will be starting insulin. Also see if she has ever taken insulin before. If so I can place her on short acting like 10 units before meals until the lab is back. Prescription insulin will not affect the test. Pt calls to report her blood sugars have been running high. Pt reports fbs are over 200 as are most of the readings. Pt reports sugars have been as high as 359. Pt reports she is on Creon and realizes she is going to be struggling with blood sugars but feels these numbers are too high. Is asking if there is something that can be done. Pt reports she can send bs readings through if provider would like to see them. Last OV 01/14/24 - Francine [place] CNP - htn Next scheduled Appt: 04/17/24 -Francine [place] -f/u Em Mahmood LPN documented in this encounter [facility] 01-14-2024 History of Present illness Narrative Chief Complaint Patient presents with: Follow Up: Blood pressure HPI Dom Avila is a 68 year old female who presents here today for Above Complaints.. Patient presents for bp follow up. Patient reports home bp 120-130's. Patient was seen by Octaviano Humphries at [facility] who started patient on amlodipine. Past medical history, appointments, medications, allergies reviewed. 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 CABG Diabetes Father Diabetes Paternal Grandmother Diabetes Maternal Grandfather other (Lung cancer) Brother other (suicide) Son may of been depression Patient Allergies ALLERGIES Allergen Reactions Brilinta [Ticagrelo* Shortness of Breath Crestor [Rosuvastat* Myalgia Keflex [Cephalexin] Other: See Comments facial flushing Lipitor [Atorvastat* Other: See Comments myalgia Lovastatin Other: See Comments myalgia Hughes [Hydrocodone-* Itching Current Medications Current Outpatient Medications on File Prior to Visit Medication Sig lisinopril (ZESTRIL) 30 mg tablet Take 1 tablet by mouth two times a day. Calcium Citrate-Vitamin D3 (CITRACAL+D) 315 mg-6.25 mcg (250 unit) tab Take 2 tablets by mouth once daily. cdegio-bxvpbnkl-fthglag (CREON) 12,000-38,000 -60,000 unit delayed release capsule Take by mouth three times daily with meals. ezetimibe (ZETIA) 10 mg tablet Take 1 tablet by mouth once daily. omeprazole (PRILOSEC) 40 mg capsule Take 1 [...] by mouth twice daily. Per Dr. Gomez LACTOBACILLUS ACIDOPHILUS (PROBIOTIC ORAL) Take 1 tablet by mouth once daily. CPAP amLODIPine (NORVASC) 2.5 mg tablet Take 1 tablet by mouth every afternoon. hydroCHLOROthiazide 12.5 mg capsule Take 1 capsule by mouth once daily. (Patient not taking: Reported on 01/14/2024) metFORMIN (GLUCOPHAGE) 500 mg tablet Take 2 [...] REVIEW OF SYSTEMS SEE HPI EXAM: BP 140/80 Pulse 74 Resp 14 Wt 65.8 kg (145 lb) BMI 25.69 kg/m General Appearance: Well appearing, alert, in no acute distress, well-hydrated, well nourished.. Lungs: Lungs clear to auscultation. No wheezing, rhonchi, rales.. Heart: RRR without murmur, gallop, or rubs. No ectopy. Health Maintenance List Covid-19 Vaccine( season) due on 07/09/2023 Advance Directive Discussion due on 11/08/2023 Depression Assessment due on 11/08/2023 Mammogram Screening due on 02/25/2024 DTaP,Tdap,Td Vaccine(2 - Td or Tdap) due on 02/24/2024 HbA1C due on 03/29/2024 Urine Albumin:Creatinine Ratio due on 04/02/2024 Diabetic Foot Exam due on 04/08/2024 BP Controlled (<130/80) due on 04/08/2024 LDL Cholesterol due on 09/29/2024 Annual PCP Team Chronic Disease Visit due on 12/31/2024 Dilated Retinal Exam due on 01/06/2025 Colorectal Cancer Screening due on 08/09/2028 Bone Density Screening Completed Influenza Vaccine Completed RSV Vaccine Completed Hepatitis C Screening Completed Shingrix Vaccine Completed Pneumococcal Vaccine: 65+ Completed Pap Testing Discontinued ASSESSMENT/PLAN: 1. Essential hypertension - ICD9: 401.9, ICD10: I10 - Controlled - Home blood pressure readings controlled - Continue current medications - Recommend home blood pressure monitoring, to bring results to next visit - Encouraged sodium restriction, DASH or Mediterranean diet - Recommend regular aerobic exercise Francine Madrid APRN.REPAIRER RESISTANCE WELDING MACHINES documented in this encounter [facility] 01-10-2024 History of Present illness Narrative Scan on 01/07/2024 2:33 PM by Provider, KELLY Carnes: Consultation - Ophthalmology documented in this encounter [facility] 12-31-2023 Miscellaneous Notes Addended by: FRANCINE MADRID on: 12/31/2023 02:08 PM Modules accepted: Orders documented in this encounter [facility] 12-31-2023 History of Present illness Narrative Chief Complaint Patient presents with: Follow Up: Blood pressure HPI Dom Avila is a 68 year old female who presents here today for Above Complaints.. Patient presents for BP check was in [facility] ER 12/28 for elevated BP. Patient was given hydralazine and sent home as it was effective. Patient taking all medications as directed. Tested positive for Influenza A prior to ER visit. Past medical history, appointments, medications, allergies reviewed. 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 CABG Diabetes Father Diabetes Paternal Grandmother Diabetes Maternal Grandfather other (Lung cancer) Brother other (suicide) Son may of been depression Patient Allergies ALLERGIES Allergen Reactions Brilinta [Ticagrelo* Shortness of Breath Crestor [Rosuvastat* Myalgia Keflex [Cephalexin] Other: See Comments facial flushing Lipitor [Atorvastat* Other: See Comments myalgia Lovastatin Other: See Comments myalgia Hughes [Hydrocodone-* Itching Current Medications Current Outpatient Medications on File Prior to Visit Medication Sig lisinopril (ZESTRIL) 30 mg tablet Take 1 tablet by mouth two times a day. Calcium Citrate-Vitamin D3 (CITRACAL+D) 315 mg-6.25 mcg (250 unit) tab Take 2 tablets by mouth once daily. tosmdj-dnudnesn-widkyzc (CREON) 12,000-38,000 -60,000 unit delayed release capsule [...] by mouth twice daily. Per Dr. Gomez LACTOBACILLUS ACIDOPHILUS (PROBIOTIC ORAL) Take 1 tablet by mouth once daily. CPAP No current facility-administered medications on file prior to visit. Social History Social History Tobacco Use Smoking status: Former Packs/day: 1.50 Years: 3.00 Additional pack years: 0.00 Total pack years: 4.50 Types: Cigarettes Quit date: 11/08/1994 Years since quittin.1 Smokeless tobacco: Never Tobacco comments: smoked 3 years in mid 90s Vaping Use Vaping Use: Never used Substance Use Topics Alcohol use: No Drug use: No Review of Symptoms REVIEW OF SYSTEMS SEE HPI EXAM: BP 170/90 Pulse 77 Resp 16 Wt 64.9 kg (143 lb) BMI 25.34 kg/m General Appearance: Well appearing, alert, in no acute distress, well-hydrated, well nourished.. Lungs: Lungs clear to auscultation. No wheezing, rhonchi, rales.. Heart: RRR without murmur, gallop, or rubs. No ectopy. Health Maintenance List Covid-19 Vaccine(2022- season) due on 07/09/2023 Advance Directive Discussion due on 11/08/2023 Depression Assessment due on 11/08/2023 Mammogram Screening due on 02/25/2024 DTaP,Tdap,Td Vaccine(2 - Td or Tdap) due on 02/24/2024 HbA1C due on 03/29/2024 Urine Albumin:Creatinine Ratio due on 04/02/2024 Diabetic Foot Exam due on 04/08/2024 BP Controlled (<130/80) due on 04/08/2024 Dilated Retinal Exam due on 05/23/2024 LDL Cholesterol due on 09/29/2024 Annual PCP Team Chronic Disease Visit due on 11/23/2024 Colorectal Cancer Screening due on 08/09/2028 Bone Density Screening Completed Influenza Vaccine Completed RSV Vaccine Completed Hepatitis C Screening Completed Shingrix Vaccine Completed Pneumococcal Vaccine: 65+ Completed Pap Testing Discontinued ASSESSMENT/PLAN: 1. Vaginal yeast infection - ICD9: 112.1, ICD10: B37.31 (primary diagnosis) - FLUCONAZOLE 150 MG TABLET 2. Essential hypertension - ICD9: 401.9, ICD10: I10 - Uncontrolled - Continue current medications - Start hydrochlorothiazide - Recommend home blood pressure monitoring, to bring results to next visit - Encouraged sodium restriction, DASH or Mediterranean diet - Recommend regular aerobic exercise - LISINOPRIL 30 MG TABLET - HYDROCHLOROTHIAZIDE 12.5 MG CAPSULE Francine Madrid APRN.REPAIRER RESISTANCE WELDING MACHINES documented in this encounter [facility] 12-28-2023 History of Present illness Narrative Scan on 12/28/2023 3:13 AM by Provider, Deyvi, KELLY: Consultation - Emergency Medicine documented in this encounter [facility] 12-22-2023 Discharge summary Note Date/Time December 22, 2023 2:00pm [facility] Medical Records Department [address] [address] Emergency Department Summary 12/22/23 MR#: [id number] Acct: [id number] Name: DOM AVILA Rep #:[id number] : 1955 68 From: Caro Pedro MD PCP: Dr. Clifton Hung MD Status:REG ER Location: ED HPI History of Present Illness Chief Complaint: General Illness Informant: patient Onset/Context/Timing Onset: Days (3 days) Context: Gradual Onset Narrative Narrative: Patient presents with cough, congestion, fever over the past 3 days. She stateshe is not really bringing up much sputum. Her temperature has been between 102 and 103. She is been taking Tylenol and ibuprofen when needed. She reports some mild diarrhea but no nausea or vomiting. 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 Breast cancer, left Cardiology follow-up encounter Cardiovascular stress test abnormal Chest pain Colon polyp COVID-19 (~10/2022) CPAP (continuous positive airway pressure) dependence Dietary restriction Discoloration of skin Easy bruising Encounter for long-term (current) use of other medications Epigastric pain Excessive bleeding Former smoker Gastric reflux Heart palpitations History of pain when walking History of TIA (transient ischemic attack) Hx of cardiovascular stress test (~09/13/18) Hx of echocardiogram (~06/30/17) Hx of gastritis IBS (irritable bowel syndrome) Injury of head and neck Leg cramps Loss of hearing Menieres disease Mixed hyperlipidemia Nausea Presence of stent in coronary artery (~01/05/17) Psoriasis Rosacea Shortness of breath on exertion Vitamin D deficiency Wears glasses Home Medications L.acidoph, paracasei,B. lactis 10 billion cell capsule 1 ea PO QHS 09/23/16 [History Last Taken 06/28/17] cholecalciferol (vitamin D3) 50 mcg (2,000 unit) capsule 4,000 unit PO DAILY 08/22/18 [History Last Taken Unknown] montelukast 10 mg tablet 10 mg PO QPM 08/22/18 [History Last Taken Unknown] coenzyme Q10 100 mg capsule 100 mg PO DAILY 08/23/19 [History Last Taken Unknown] metformin 500 mg 24 hr tablet,extended release (gastric retention) 1,000 mg PO BID 11/24/21 [History Last Taken Unknown] potassium chloride 10 mEq tablet,extended release 20 meq PO BID 11/24/21 [History Last Taken Unknown] tamoxifen 20 mg tablet 20 mg PO DAILY 11/24/21 [History Last Taken Unknown] doxycycline monohydrate 50 mg capsule 50 mg PO DAILY PRN Skin 05/28/22 [History Last Taken Unknown] nitroglycerin 0.4 mg sublingual tablet 0.4 mg sublingual Q5M PRN Chest Pain #25 tabs 05/28/22 [Rx Last Taken Unknown] clobetasol 0.05 % topical gel 1 applic topical DAILY PRN Skin Cleansing 09/03/22[History Last Taken Unknown] magnesium oxide 500 mg PO DAILY 09/03/22 [History Last Taken Unknown] omeprazole 40 mg capsule,delayed release 40 mg PO DAILY 11/30/22 [History Last Taken Unknown] scrpwu-xsxxqsnc-gyqtcoy 36,000-114,000-180,000 unit capsule,delay rel (Creon) See Rx Instructions PO .COMPLEX #56 caps 03/04/23 [Rx Last Taken Unknown] metoprolol tartrate 25 mg tablet 25 mg PO BID #180 tabs 03/15/23 [Rx Last Taken Unknown] Handicap Placard #1 ea 08/30/23 [Rx Last Taken Unknown] calcium citrate 315 mg calcium-vitamin D3 6.25 mcg (250 unit) tablet 2 tab PO DAILY 08/30/23 [History Last Taken Unknown] ezetimibe 10 mg tablet (Zetia) 10 mg PO DAILY 08/30/23 [History Last Taken Unknown] ketoconazole 2 % shampoo 1 applic topical QODAY 08/30/23 [History Last Taken Unknown] lisinopril 5 mg tablet 30 mg PO BID This is a dose increase 08/30/23 [History Last Taken Unknown] lactulose 10 gram/15 mL oral solution 15 ml PO DAILY PRN constipation #473 mL 11/03/23 [Rx Last Taken Unknown] Allergy/AdvReac Type Severity Reaction Status Date / Time lovastatin Allergy Intermediate Other Verified 12/22/23 13:22 rosuvastatin [From Crestor] Allergy Intermediate Other Verified 12/22/23 13:22 ticagrelor [From Brilinta] Allergy Intermediate Shortness Verified 12/22/23 13:22 of breath hydrocodone Allergy Hives Verified 12/22/23 13:22 cephalexin monohydrate AdvReac Other Verified 12/22/23 13:22 [From Keflex] pravastatin AdvReac myalgias Verified 12/22/23 13:22 Family History Mother Cancer pancreatic cancer Father , CT age 20's (premature CAD), 3 vessel CABG, hyperlipidemia, CHf Myocardial infarction CAD (coronary artery disease) Brother Cancer lung cancer Surgical History Ductal carcinoma in situ (DCIS) of left breast History of bunionectomy of left great toe History of cardiac catheterization (~10/12/18) History of carpal tunnel release of both wrists History of section History of cholecystectomy History of coronary artery stent placement (~12/30/16) History of detached retina repair (~04/2023) History of hysterectomy History of lumpectomy of left breast History of parathyroidectomy Hx of foot surgery Hx of release of tendon (~01/13/23) Status post excision of lipoma (~11/2018) Status post lumbar spine operative procedure for decompression of spinal cord Status post trigger finger release Social History household members: spouse housing: house current occupational status: employed Smoking Status: Former smoker quit date: 11/08/87 pack-years: 6 how long ago did patient quit smokin second hand exposure: Yes alcohol intake: never substance use type: does not use caffeine: Yes Type: coffee Number of servings: 2 what type of physical activity do you participate in: none seatbelt use: always do you feel safe at home: Yes ROS ROS ED Constitutional Constitutional ED: Reports fever(s) Eyes Eyes: Denies change in vision or discharge from eye(s) ENT ENT ED: Denies discharge from eye(s), rhinorrhea or sore throat Cardiovascular Cardiovascular: Denies chest pain or palpitations Respiratory/Chest Respiratory/Chest: Reports cough; Denies sputum Gastrointestinal Gastrointestinal: Reports diarrhea; Denies abdominal pain, nausea or vomiting Genitourinary Genitourinary ED: Denies dysuria Musculoskeletal Musculoskeletal: Denies back pain or extremity pain Integumentary Denies Abrasions or rash Neurologic Neurologic: Denies headache(s) or weakness Psychiatric Psychiatric: Denies anxiety or depression Allergic/Immunologic Allergic/Immunologic ED: Denies lip swelling or urticaria EXAM Physical Exam Const Vital Signs: 12/22/23 13:22 12/22/23 13:32 Temperature 99.3 F H Temperature Source Temporal Pulse Rate 97 Respiratory Rate 16 Respiratory Effort Normal Respiratory Pattern Normal Blood Pressure 105/78 Blood Pressure Mean 87 Pulse Ox 99 Oxygen Delivery Method Room Air Positive well nourished and well developed General Appearance ED: well developed HEENT Reports moist mucous membranes Eyes EOMs intact bilaterally Chest Wall inspection of chest normal and palpation of chest normal Resp normal respiratory effort and clear to auscultation bilaterally Cardio regular rate and regular rhythm GI non-tender Palpation: soft Extremity normal to inspection Neuro oriented x3 and no sensory deficits noted Motor Exam: strength 5/5 throughout Psych mental status grossly normal Skin no rashes or lesions noted MDM MDM MDM Narrative Medical decision making narrative: Swab for COVID, influenza, and RSV will be obtained. Chest x-ray obtained to evaluate for acute lung pathology, cardiac size, or mediastinal abnormality. Radiography Diagnostic Testing: Clinical Impression(s) from Imaging Studies Chest X-Ray 12/22/23 14:16 IMPRESSION: No acute abnormality is seen. Electronically Signed: Reji Bella MD at 14:33 EST , Treatment and Re-Evaluation :: Chest x-ray per my interpretation was no evidence of focal infiltrate. Radiology interpretation reviewed and agrees. COVID and RSV swab is negative. Patient's flu swab is positive for influenza A. Test results discussed with patient at bedside. We discussed Tamiflu. She would prefer just to take Tylenol and ibuprofen and continue supportive care. Return instructions provided. Discharge Plan Triage Chief Complaint: General Illness ED Provider: Caro Pedro Dx/Rx/DC Orders Clinical Impression: Influenza A Instructions: ED Influenza (Adult) Prescriptions: No Action montelukast 10 mg tablet 10 mg PO QPM coenzyme Q10 100 mg capsule 100 mg PO DAILY ezetimibe [Zetia] 10 mg tablet 10 mg PO DAILY tamoxifen 20 mg tablet 20 mg PO DAILY Hold Instructions: X2 weeks to r/o side effects potassium chloride 10 mEq tablet extended release 20 meq PO BID doxycycline monohydrate 50 mg capsule 50 mg PO DAILY PRN (Reason: Skin) clobetasol 0.05 % gel 1 applic topical DAILY PRN (Reason: Skin Cleansing) nitroglycerin 0.4 mg tablet, sublingual 0.4 mg SUBLINGUAL Q5M PRN (Reason: Chest Pain) Qty: 25 3RF Patient Comments: CHEST PAIN magnesium oxide 500 mg tablet 500 mg PO DAILY calcium citrate-vitamin D3 315 mg-6.25 mcg (250 unit) tablet 2 tab PO DAILY ketoconazole 2 % shampoo 1 applic topical QODAY lisinopril 5 mg tablet 30 mg PO BID Patient Comments: BP (DME) Handicap Placard See Rx Instructions Qty: 1 0RF Dose Instruction: As directed Rx Instructions: As directed; Good from 10/06/2023 to 10/06/2028 L.acidoph, paracasei,B. lactis 1 EACH capsule 1 ea PO QHS Patient Comments: GI HEALTH metformin 500 mg tablet,ER erlin.retention 24 hr 1,000 mg PO BID Patient Comments: 1000mg at dinner; diabetes cholecalciferol (vitamin D3) 2,000 unit capsule 4,000 unit PO DAILY Patient Comments: SUPPLEMENT omeprazole 40 mg Capsule,Delayed Release(Dr/Ec) 40 mg PO DAILY Creon 36,000-114,000- 180,000 unit capsule,delayed release(/EC) See Rx Instructions PO .COMPLEX Qty: 56 0RF Rx Instructions: take 1-2 with snacks and 2-3 with meals metoprolol tartrate 25 mg tablet 25 mg PO BID Qty: 180 3RF lactulose 10 gram/15 mL solution 15 ml PO DAILY PRN (Reason: constipation) Qty: 473 1RF Primary Care Provider: Clifton Hung Referrals: Clifton Hung MD [Primary Care Provider] - 1-2 Weeks Disposition Disposition: Home, Self Care What to do if you have Problems For any increased pain, shortness of breath, bleeding, nausea or vomiting, chestpain, or any unexpected problems, contact your Primary Care Provider. Call [facility] ([phone]) or report to the closest Emergency Room. Call 911 if necessary. 12/22/23 4044 <Electronically signed by Caro Pedro MD> Cosigner Signature (if applicable): CC: Dr. 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 CABG Diabetes Father Diabetes Paternal Grandmother Diabetes Maternal Grandfather other (Lung cancer) Brother other (suicide) Son may of been depression Patient Allergies ALLERGIES Allergen Reactions Brilinta [Ticagrelo* Shortness of Breath Crestor [Rosuvastat* Myalgia Keflex [Cephalexin] Other: See Comments facial flushing Lipitor [Atorvastat* Other: See Comments myalgia Lovastatin Other: See Comments myalgia Hughes [Hydrocodone-* Itching Current Medications Current Outpatient Medications on File Prior to Visit Medication Sig Calcium Citrate-Vitamin D3 (CITRACAL+D) 315 mg-6.25 mcg (250 unit) tab Take 2 tablets by mouth oncedaily. lgbwjk-xxyxbttm-xsecgye (CREON) 12,000-38,000 -60,000 unit delayed release capsule [...] 327.23, ICD10: G47.33 -Wears CPAP Francine Madrid APRN.REPAIRER RESISTANCE WELDING MACHINES [facility] History of Present illness Narrative* Latrice Dunn LPN - 09/15/2023 8:30 AM EST Scan on 09/14/2023 5:34 PM by Provider, External, PAJosephC: Consultation - Ophthalmology [facility] History of Present illness Narrative* Natalie Presley Ma - 08/31/2023 11:37 AM EDT Cardiology OV. Scan on 08/30/2023 2:05 PM by Provider, KELLY Carnes: Consultation - Cardiology documented [facility] History of Present illness Narrative* Latrice Dunn LPN - 08/02/2023 7:08 AM EDT Scan on 07/30/2023 6:04 PM by Provider, KELLY Carnes: Consultation - Ophthalmology documented in [facility] Instructions* Patient Instructions* Sima Dumont APRN.REPAIRER RESISTANCE WELDING MACHINES - 07/23/2023 11:44 AM EDT Silicone based [...] dry with a towel. Avoid vigorous rubbing withthe towel. You may want to use the [...] avoid scratching at night. documented in this encounter[facility] History of Present illness Narrative* Sima Dumont APRN.ELIZABETH - 07/23/2023 10:58 AM EDT Advertising Sales Executive offered: Patient declines. 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 CABG Diabetes Father Diabetes Paternal [...] unit) tab Take 2 tablets by mouth oncedaily. ljogdl-dxjoadvp-vtfretp (CREON) 12,000-38,000 -60,000 unit delayed release capsule [...] external genitalia normal, normal Bartholin's glands, urethra, [place]'s glands, no vulvar lesions, small amount thick [...] Level: 4 - Moderate documented [facility] History of Present illness Narrative* Latrice Dunn LPN - 06/15/2023 10:08 AM EDT Scan on 06/14/2023 2:02 PM by ProviderDeyvi PA-C: Consultation - Ophthalmology documented in this encounter[facility] History of Present illness Narrative* Shakeel Yang MA - 06/07/2023 3:57 PM EDT Scan on 06/07/2023 8:43 AM by Deyvi Yadav PA-C: Consultation - Ophthalmology HM oscar. Shakeel Yang MA documented in this encounterW[facility]06[facility] History of Present illness Narrative* Latrice Dunn LPN - 04/09/2023 11:47 AM EDT Scan on 04/08/2023 4:51 PM by External Provider, KELLY: Consultation - Ophthalmology documented in this encounter[facility] Miscellaneous Notes* Telephone Encounter - Natalie Presley Ma - 04/09/2023 8:56 AM EDT See update from pt. Natalie Presley Ma documented in this encounterW[facility] Instructions* Patient Instructions* Clifton Hung MD - 04/08/2023 2:04 PM EDT Please get labs done on or after 09/24/2023 prior to your next visit. documented in this encounterW[facility]06[facility] History of Present illness Narrative* Clifton Hung MD - 04/08/2023 12:53 PM EDT Images from the original note were not included. 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 Colon polyp 2011 Controlled type 2 diabetes mellitus without complication, without long-term current use of insulin ([facility]) 10/22/2016 De Quervain's tenosynovitis, left 07/31/2019 Diabetic eye exam ([facility]) 01/16/2016 Lat done: 12/03/2017 No [...] Date 2D ECHO (EXEP) 06/30/2017 EF=65%, trivial CT, TI and 1+ PI Unchanged from 04/2017 2D ECHO (EXEP) 05/14/2021 EF=60%, 1+ TI, trival CT, AI, PI 2D ECHO (EXEP) 09/16/2021 EF=60%, [...] [Rosuvastatin], Keflex [Cephalexin], Lipitor [Atorvastatin], Lovastatin, and Hughes [Hydrocodone-Acetaminophen] Medications reviewed: Yes FAMILY HISTORY Problem Relation Age of Onset other (Pancreatic cancer) Mother Coronary Artery Disease Father 25 CT @ 25. CABG Diabetes Father Diabetes Paternal [...] Topics Alcohol use: No Drug use: No Dom works out regularly 2-3 times per week with walking. She watches her diet for sodium, low fat and low cholesterol all of the time. List of current specialists seen: Dr. Alcantar (Gastro) Dr. Zarate (Cardio) Dr. Manzanares (Pulm for SEBAS and RLS, Allergies) End of Live Planning discussed including patients advanced directive wishes: Yes I am willing to follow Dom's advanced directives. PHQ-2 / Depression screen Depression Screening 08/28/2022 10/05/2022 02/23/2023 04/08/2023 PHQ-2 Score 0 0 0 0 AMELIA-2 Total Score - - - - Depression screening tool completed and reviewed. Based on score and interview, patient is not at risk for depression. Screening tool discussed with patient, and I recommended no further interventionat this time. Functional Ability/Safety Screen 1. Was the patient's timed Up and Go test unsteady or longer than 30 seconds? No 2. Does the patient need help with the phone, transportation, shopping,preparing meals, housework, laundry, medications or managing money? No 3. Does your home have rugs in the hallway, lack of grab bars in the bathroom, lack of handrails onthe stairs or have poor lighting? 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 [place] Garibay's cyst of knee, left 03/02/2018 Breast [...] Date 2D ECHO (EXEP) 06/30/2017 EF=65%, trivial CT, TI and 1+ PI Unchanged from 04/2017 2D ECHO (EXEP) 05/14/2021 EF=60%, 1+ TI, trival CT, AI, PI 2D ECHO (EXEP) 09/16/2021 EF=60%, [...] cancer) Mother Coronary Artery Disease Father 25 CT @ 25. CABG Diabetes Father Diabetes Paternal Grandmother Diabetes Maternal Grandfather other (Lung cancer) Brother other (suicide) Son may of been depression Patient Allergies ALLERGIES Allergen Reactions Brilinta [Ticagrelo* Shortness of Breath Crestor [Rosuvastat* Myalgia Keflex [Cephalexin] Other: See Comments facial flushing Lipitor [Atorvastat* Other: See Comments myalgia Lovastatin Other: See Comments myalgia Hughes [Hydrocodone-* Itching Current Medications Current Outpatient Medications [...] 70 Resp 16 Ht 157.5 cm (5' 2) Wt 60.3 kg (133 lb) BMI 24.33 [...] symmetric. Sensation to light touch and crainal nerves2-12 intact.. Diabetic Foot Exam: Feet: Shoes and socks removed, no deformities, ulcers, calluses, normal distal pulses, sensitive to10 gm microfilament, and vibratory exam within normal [...] Lymph 1.00 - 4.00 k/uL 1.43 1.36 [place]% % 9.4 8.0 Abs [place] <0.87 k/uL 0.45 0.40 Eosin% % 1.3 [...] Negative Ketones, Urine Trace, Negative Negative Specific [place], Ur 1.005 - 1.030 1.017 Hemoglobin/Blood,Ur Negative, [...] diet of 1000 mg/day for under 50, 1200- 1500 mg/day for 50+ - Follow up for [...] diet and regular exercise 6. 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) - [...] which included preparing to see the patient, [id number]-btnn patient care, completing clinical documentation, performing a medically appropriate examination, counseling and educating the patient/family/caregiver and ordering medications, tests, or procedures. Clifton Hung MD documented in this encounterWright-Patterson [facility]04-21-2023 History of Present illness Narrative* Chad Mariee, 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 - 02/26/2023 9:51 AM EDT Chief Complaint Patient presents with: Established Patient HPI: Dom Avila is a 67 year old female who presents here today for follow up DCIS. Per Dr. Georges previous note: H/o oyu-nkdpnfz-bypvframb diabetes mellitus, hypertension, ASCAD, and TIA who presented with an abnormal mammogram. She denies palpable discrete masses, but she notes lumpy breast. She denies nipple discharge. She denies previous breast biopsies. She denies previous breast surgeries. She notes occasional twinges of pain of her chest wall. She notes no breast or ovarian cancer in her family, mother of pancreatic cancer at age 59 andbrother of lung cancer at age 58. She [...] breast lumpectomy for DCIS on 04/08/2021 at [facility] Pathology (from [facility]) reveals - ductal carcinoma in situ...,size of DCIS - 1.0 x 0.4 cm...,architectural type - cribriform..., nuclear grade 1-2..., necrosis - present central (expansive comedo necrosis)..., biopsy cavity is 0.5 cm from closest anterior margin (which is skin)..., ER >95%, LA >95% Postoperative course is unremarkable with no swelling or pain in her lumpectomy site. She is here today to discuss adjuvant therapy and chemoprevention for breast cancer. RADIATION:06/03/21 - 06/24/21 Current therapy:Tamoxifen Began after radiation Followed by GI. She is following a strict diet and is taking creon-feeling so much better. Appetite:Good. Avoiding carbs and sugars. Energy level:Good. Denies fevers. Recent sinus infection. Resp:denies cough or sob-follow up by [facility] h/o seasonal allergies/sleep apnea- wears CPAP at hs Cardiac:denies chest pain/palpitations-Followed by cardiology twice yearly GI:denies abd pain, n/v, h/o IBS, occ. 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 Past medical history, appointments, medications, allergies reviewed. No changes. EXAM: BP 132/70 Pulse 82 Temp 36.2 C (97.1 F) Ht 158 cm (5' 2.21) Wt 61.7 kg (136 lb) SpO2 100% [...] and edited as necessary for today's visit. Chad Mariee APRN.CNP documented in this encounterWright-Patterson [facility] Center04-19-2023 History of Present illness Narrative* Nesha Patiño RT(R) - 02/24/2023 9:10 AM EDT Radiology Service Progress Note PATIENT NAME: Dom Avila DATE OF SERVICE: February 24, 2023 TIME: 9:16 AM PATIENT IDENTITY VERIFICATION COMPLETED USING TWO (2) IDENTIFIERS: Name and Date of confirmedby patient verbally. FALL SCREENING: Has the patient [...] AM Radiology Service Progress Note PATIENT NAME: Dom Avila DATE OF SERVICE: February 24, 2023 TIME: 9:16 AM PATIENT IDENTITY VERIFICATION COMPLETED USING TWO (2) IDENTIFIERS: Name and Date of confirmedby patient verbally. FALL SCREENING: Has the patient [...] 24, 2023 9:16 AM documented in this encounterWright-Patterson [facility] Center04-17-2023 History of Present illness Narrative* Latrice Dunn LPN - 02/22/2023 1:07 PM EDT Scan on 02/22/2023 12:59 PM by External Provider: Consultation - Neurology documented in this encounterWright-Patterson [facility] Center04-14-2023 History of Present illness Narrative* Latrice Dunn LPN - 02/19/2023 7:32 AM EDT Scan on 02/18/2023 12:54 PM by External Provider: Consultation - Cardiology documented in this encounterWright-Patterson [facility] Center04-04-2023 History of Present illness Narrative* Cherise Sifuentes PA-C - 02/09/2023 7:31 AM EDT Chief Complaint Patient presents with: Cough: congestion HPI Dom Avila is a 67 year old female who presents here today for Above Complaints.. Patient has had URI symptoms since 01/31/23. [facility] seen [facility] on 02/[facility]. 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 Colon polyp 2011 Controlled type 2 diabetes mellitus without complication, without long-term current use of insulin ([facility]) 10/22/2016 De Quervain's tenosynovitis, left 07/31/2019 Diabetic eye exam ([facility]) 01/16/2016 Lat done: 12/03/2017 No [...] Date 2D ECHO (EXEP) 06/30/2017 EF=65%, trivial CT, TI and 1+ PI Unchanged from 04/2017 2D ECHO (EXEP) 05/14/2021 EF=60%, 1+ TI, trival CT, AI, PI 2D ECHO (EXEP) 09/16/2021 EF=60%, [...] cancer) Mother Coronary Artery Disease Father 25 CT @ 25. CABG Diabetes Father Diabetes Paternal Grandmother Diabetes Maternal Grandfather other (Lung cancer) Brother other (suicide) Son may of been depression Patient Allergies ALLERGIES Allergen Reactions Brilinta [Ticagrelo* Shortness of Breath Crestor [Rosuvastat* Myalgia Keflex [Cephalexin] Other: See Comments facial flushing Lipitor [Atorvastat* Other: See Comments myalgia Lovastatin Other: See Comments myalgia Hughes [Hydrocodone-* Itching Current Medications Current Outpatient Medications [...] BP Cuff Size: Regular Adult) Pulse 80 Temp37.1 C (98.7 F) Resp 18 Wt 61.7 [...] prn. Cherise Sifuentes PA-C documented in this encounterWright-Patterson Medical Center04-03-2023 Miscellaneous Notes* Telephone Encounter - Monique Dailey LPN - 02/08/2023 1:51 PM EDT Patient has been identified by name and date of : Yes Requested Prescriptions Pending Prescriptions Disp Refills tamoxifen (NOLVADEX) 20 mg tablet 90 tablet 3 Sig: Take 1 tablet (20 mg) by mouth once daily. RX INSTRUCTIONS: Patient aware RX will be sent to pharmacy. No need to notify patient. Monique Dailey LPN documented in this encounterWright-Patterson [facility] Center03-31-2023 History of Present illness Narrative* Lori Barriga APRN.REPAIRER RESISTANCE WELDING MACHINES - 02/05/2023 9:43 AM EDT Subjective The history is provided by the patient. No speech language specialist was used. HPI Domgabbie Avila is a 67 year old female who presents today for CC of cough and congestion, this started in past 5 days. Congestion is more in chest. She was exposed to covid at [employer], but beingday 5 and improving declines testing. 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 Colon polyp 2011 Controlled type 2 diabetes mellitus without complication, without long-term current use of insulin ([facility]) 10/22/2016 De Quervain's tenosynovitis, left 07/31/2019 Diabetic eye exam ([facility]) 01/16/2016 Lat done: 12/03/2017 No [...] have confirmed and edited as necessary, the [facility] Review of Systems Constitutional: Negative for chills [...] for higher level of care were discussed indetail warranting prompt ER evaluation. Lori Barriga APRN.ELIZABETH documented in this encounterWright-Patterson [facility] Center03-31-2023 Instructions* Patient Instructions* Lori Barriga APRN.CNP - 02/05/2023 9:43 AM [...] with PCP for re-evaluation. documented in this encounterWright-Patterson Medical Center02-09-2023 Miscellaneous Notes* Telephone Encounter - Monique Dailey LPN - 12/17/2022 12:15 PM EST Spoke with pt. Informed DCIS/L breast lumpectomy. No lymph nodes were removed. Ok to have IV in L arm. Pt. Voiced understanding. Monique Dailey LPN * Telephone Encounter - Chad Mariee APRN.CNP - 12/17/2022 12:09 PM EST Pt. has a h/o DCIS/L breast lumpectomy. No lymph nodes were removed. Ok to have IV in L arm. Chad Mariee APRN.ELIZABETH * Telephone Encounter - Alma Howe Pss - 12/17/2022 10:03 AM EST Patient is having surgery on her left wrist. She was informed by ortho that she was to get permission from Chad to see if she was able to have IV, tourniquet, etc in her left arm due to breast cancer. Please advise patient. documented in this encounterWright-Patterson Medical Center02-03-2023 Miscellaneous Notes* Telephone Encounter - Clifton Hung MD - 12/11/2022 8:37 PM EST Noted. documented in this encounterWright-Patterson Medical Center02-03-2023 Miscellaneous Notes* Telephone Encounter - Laura Ayala LPN - 12/11/2022 10:12 AM EST Please see pt's [employer]t message,pt stated that Flagyl was not sent to her pharmacy. See pended order below and advise. Laura Ayala LPN documented in this encounterWright-Patterson Medical Center02-01-2023 Instructions* Patient Instructions* Sima Dumont APRN.REPAIRER RESISTANCE WELDING MACHINES - 12/09/2022 7:25 AM EST Continue Revaree [...] dry with a towel. Avoid vigorous rubbing withthe towel. You may want to use the [...] avoid scratching at night. documented in this encounterWright-Patterson Medical Center02-01-2023 History of Present illness Narrative* Sima Dumont APRN.CNP - 12/09/2022 7:01 AM EST Advertising Sales Executive offered: Patient declines. Dom Avila is a 67 year old female who presents for onset of vaginal discharge, burning and mild itching 2 week ago. Treated with Monistat 7. Now has vaginal discharge only. Treated for COVID with Paxlovid around [place] and read that yeast infection is a [...] external genitalia normal, normal Bartholin's glands, urethra, [place]'s glands, no vulvar lesions, cervix surgically absent, [...] which included preparing to see the patient, jmeo-th-xirf patient care, completing clinical documentation, obtaining and/or reviewing separately obtained history, performing a medically appropriate examination, counseling and educating the pat ient/family/caregiver, and ordering medications, tests, or procedures. documented in this encounterWright-Patterson Medical Center01-24-2023 Procedure [facility]01-24-2023 Procedure [facility]01-24-2023 Procedure [facility]01-24-2023 Procedure [facility]01-24-2023 History and physical note Author Carson Alcantar [facility] December 01, 2022 11:50am Note Date/Time December 01, 2022 1 1:50am [facility] Medical Records Department [address] [place] [id number] History & Physical Exam 12/01/22 1148 MR#: [id number] Acct: [id number] Name: DOM AVILA Rep #:[id number] : 1955 67 From: Carson Alcantar DO PCP: Dr. Clifton Hung MD Status:[facility] Location: [place] [address] History and Physical Date of Admission: 12/01/22 DOM AVILA, is a 67 F who presents to the office today to establish with GI for epigastric pain that occurs after eating which began in 08/2022. Happens about 2x per week, can be after eating but other times not postprandial. It hasn't woken her up. Doesn't radiate. Describes pain as dull, feels like there'sswelling. Pain lasts a few minutes. No aggravating factors. Seems to be better since starting omeprazole in 08/2022. Negative H pylori breath test. She reportshx of gastritis. Used to have significant heartburn, but that was relieved with changing the time of day she takes tamoxifen. Used famotidine in the past when she had heartburn. Mild nausea with the epigastric pain, no vomiting. No dysphagia. Reports long hx of IBS. Can have explosive diarrhea from certain foods, especially greasy or fatty, or from stress. Takes dicyclomine prn, very helpful but tends to constipate her. Used to take Mylanta regularly. Less diarrhea sinceshe retired last year. Has tried fiber gummies w/o relief of constipation. Hemorrhoids flare with constipation. Has tried miralax, not sure if it helped. Often has cramping across the lower abdomen. No melena or hematochezia. Takes APAP prn, rarely takes NSAIDs. 09/03/22 labs at [facility]: CBC unremarkable, hgb 13.5, plts 252, amylase 74, lipase 133 high, normal hepatic function panel 09/15/22 CT chest/abd/pelvis at [facility]: subcentimeter hypodense too small to characterize left hepatic lesion Has upcoming CT at [facility] to f/u the liver lesion 09/09/22 RUQ US at [facility]: fatty liver PMH includes DM2, SEBAS, narcolepsy, HTN, DCIS, rosacea (scalp, face, eyes), psoriasis, TIA, hyperlipidemia, CAD, vit D deficiency PSH includes cholecystectomy, hysterectomy, , cardiac stents, parathyroidectomy Hx hyperplastic colon polyps, last colonoscopy 2018 EGD 2018 Her mother from pancreatic cancer age 57 Exam Const General: cooperative, healthy appearing and comfortable Orientation: alert, awake and oriented x3 HENMT Head: normal to inspection Eyes Sclera: sclerae normal Resp Effort & Inspection: normal respiratory effort GI Inspection: normal to inspection Palpation: soft, no hepatosplenomegaly, no masses and tender in the epigastrum and in the LLQ General: bladder normal to palpation Bimanual Exam- Vagina & Uterus: bladder normal to palpation Skin General: no jaundice Neuro Gait: normal gait Psych Mood: euthymic mood Quality Reporting Tobacco Screening ([facility] 138) Smoking Status: Former smoker Assessment and Plan Assessment and Plan (1) Epigastric pain: ?Status:?Chronic ?Plan: 67 yr old female with epigastric pain, elevated lipase, IBS, hx gastritis, DM2, hx DCIS, FH pancreatic cancer DDx includes gastritis, PUD, EPI, pancreatitis Will contact her via portal with lab results and any new plan EGD and colonoscopy w/ office f/u 2 wks later (2) IBS (irritable bowel syndrome): ?Status:?Chronic ?Plan: Diarrhea due to greasy foods or stress, dicyclomine prn is helpful but can causeconstipation; at other times she will have constipation. Will address more later. (3) Fatty liver: ?Status:?Chronic ?Plan: To be addressed in the future ? ? ? Orders: Orders Amylase Today R10.13 - Epigastric pain ? Lipase Today R10.13 - Epigastric pain ? CA 19-9 Serial Monitor Today R10.13 - Epigastric pain ? Fecal Fat, Qualitative Today R10.13 - Epigastric pain ? Pancreatic Elastase, Fecal Today R10.13 - Epigastric pain ? Comprehensive Metabolic Profil Today R10.13 - Epigastric pain ? CRP Today R10.13 - Epigastric pain ? Erythrocyte Sed Rate Today R10.13 - Epigastric pain ? CBC W/Diff, Automated Today I20.8 - Other forms of angina pectoris, R10.13 - Epigastric pain ? Celiac Disease Profile Today K58.9 - Irritable bowel syndrome without diarrhea, R10.13 - Epigastric pain ? LDH Today K58.9 - Irritable bowel syndrome without diarrhea, R10.13 - Epigastricpain ? Medications: Discontinued famotidine (Pepcid) ?? Discontinued Reason:? Pt no longer taking 20 mg? PO QHS ? ? I have examined the patient and the H&P has been reviewed. There are no clinicalchanges since date of exam. 12/01/22 1150 <Electronically signed by Carson Alcantar DO> Cosigner Signature (if applicable): CC: Dr. Clifton Hung MD; Carson Alcantar DO~ Signed [facility] Work Phone: 1(250) 264-569601-18-2023 Miscellaneous Notes* Telephone Encounter - Suki Ambrocio LPN - 11/25/2022 12:12 PM EST Patient notified. Suki Ambrocio LPN * Telephone Encounter - Chad Mariee APRN.ELIZABETH - 11/25/2022 12:07 PM EST Please inform pt. that her CT is stable. No new findings. Follow up as scheduled. Thank you. Chad Mariee APRN.ELIZABETH documented in this encounterWright-Patterson Medical Center01-18-2023 History of Present illness Narrative* Laura Rivas, RT(R) - 11/25/2022 9:20 AM EST Radiology Service Progress Note DATE OF SERVICE: [...] creatinine assay has traceable calibration to isotope dilution- mass spectrometry. Refer to KDIGO guidelines for clinical interpretation. In patients with unstable renal function, e.g. those with acute kidney injury, the eGFRmay not accurately reflect actual GFR. eGFR- Date Value Ref Range Status 09/16/2021 >60 Final P.O.C.T. RESULTS: POC done: Yes, See Lab Tab November 25, 2022 TREATMENT: N/A PERIPHERAL IV DATA: Ambulatory: A peripheral IV was started in the Right antecubital site with a Angio cath: 22 gauge. RADIOLOGY DEPARTMENT: CT; Exam(s) Completed: Abdomen/Pelvis SIGNATURE: RT Susie(R) PATIENT NAME: Dom Avila DATE: November 25, 2022 TIME: 1:33 PM documented in this encounterWright-Patterson Medical Center01-07-2023 History of Present illness Narrative* Shaneka Yang APRN.REPAIRER RESISTANCE WELDING MACHINES - 11/14/2022 1:20 PM EST CC: Patient presents with: Sore Throat: With cough, thick mucus. X 2 days. Spouse has Bronchitis. 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 CABG Diabetes Father Diabetes Paternal [...] occur. Patient agreeable to treatment plan. Shaneka Yang APRN.REPAIRER RESISTANCE WELDING MACHINES documented in this encounterWright-Patterson Medical Center01-04-2023 Instructions* Patient Instructions* Matthew Joaquin - 11/11/2022 1:49 PM EST [...] it. Apply a bandage and wear a differentpair of shoes. Take Care of Your Toenails Cut toenails after bathing, when they are soft. Cut toenails straight across and smooth with a nail file. Avoid cutting into the corners of toes. Do not cut cuticles. If you have neuropathy (or decreased sensation in your feet) a principal database developer should always cut your toenails. Be Careful [...] make sure there are no foreign objects orrough areas. Avoid tight socks. Wear natural-fiber socks [...] Go to your health care provider or principal database developer to treat these conditions. If ingrown becomes an issue, call for procedure documented in this encounterWright-Patterson Medical Center01-04-2023 History of Present illness Narrative* Matthew Joaquin - 11/11/2022 1:41 PM EST Consultation requested by Dr. Hung for an [...] to more or less discuss options for ingrowingtenail. 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 CABG Diabetes Father Diabetes Paternal [...] Objective: Patient presents to clinic ambulating in [facility] Constitutional: Pt is a well [...] toes when tested with the 5.07 SWM bilateral.Vibratory sensation is decreased at the hallux bilateral. [...] full with knee flexed. No pain or crepitusnoted. STJ, MTJ ROM are full and free of pain or crepitus. Muscle strength is 5/5 for dorsiflexors,plantarflexors, inverters, everters. Digital deformities include none. Assessment: [...] No signs of infection. Discussed proper trimming ofnail. Discussed plan of matrixectomy if patient continues to develop ingrown. Offered matrixectomy today but patient elected to hold on this. If she develops issues, consider matrixectomy 4. She has more dryness than callus. Recommend lotion to feet. 5. Can f/u in 6 months or sooner if problems arise. Matthew Joaquin DPM * Frida Schmidt RN - 11/11/2022 1:17 PM EST AMB ROOMING INTAKE FLOWSHEET DATA Risk Screening Do you have concerns about personal safety or safety in the home?: No Patient presents with: Left Great Toe - New Patient, Ingrown Toenail Patient c/o ingrown toenail to L hallux. documented in this encounterWright-Patterson Medical Center12-27-2022 Instructions* Patient Instructions* Cherise Sifuentes PA-C - 11/03/2022 2:23 PM EST FACT SHEET FOR PATIENTS, PARENTS, AND CAREGIVERS EMERGENCY USE AUTHORIZATION (EUA) OF PAXLOVID FOR CORONAVIRUS DISEASE 2019 (COVID-19) You are being given this Fact Sheet because your healthcare provider believes it is necessary to provide you with PAXLOVID for the treatment of uzbo-fl-hixowogh coronavirus disease (COVID-19) caused by the SARS-CoV-2 virus. This Fact Sheet contains information to help you understand the risks and benefits of taking the PAXLOVID you have received or may receive. The U.S. Food and Drug Administration (FDA) has issued an Emergency Use Authorization (EUA) to makePAXLOVID available during the COVID-19 pandemic (for more details about an EUA please see What is an Emergency Use Authorization? at the end of this document). PAXLOVID is not an FDA-approved medicine in the [place]. Read this Fact Sheet for information about PAXLOVID. Talk to your healthcareprovider about your options or if you have any questions. It is your choice to take PAXLOVID. What is COVID-19? COVID-19 is caused by a virus called a coronavirus. You can get COVID-19 through close contact withanother person who has the virus. COVID-19 illnesses have ranged from very vrgl-hr-ehzaxe, including illness resulting in . While information so far suggests that most COVID-19 illness is mild, serious illness can happen and maycause some of your other medical conditions to become worse. Older people and people of all ages with severe, long lasting (chronic) medical conditions like heart disease, lung disease, and diabetes,for example seem to be at higher risk of being hospitalized for COVID-19. What is PAXLOVID? PAXLOVID is an investigational medicine used to treat ldgu-go-uorsrswe COVID-19 in adults and children [12 years [...] of using PAXLOVID to treat people with sxmm-gg-nfnnpcdv COVID-19. The FDA has authorized the emergency use of PAXLOVID for the treatment of unxf-hx-jawirvnu COVID-19in adults and children [12 years of age [...] the medicines you take, including prescription and vnrm-tnq-ssprzub medicines, vitamins, and herbal supplements. Some medicines [...] you have any questions about contraceptive methods thatmight be right for you. How do I [...] missed dose and take the next dose atyour regular time. Do not take 2 doses [...] (remdesivir) is FDA-approved for the treatment of idxb-at-ghvsykvy COVID-19 in certain adults and children. Talk with your doctor to see if Veklury is appropriate for you. Like PAXLOVID, FDA may also allow for the emergency use of other medicines to treat people with COVID-19. Go to https://www.fda.gov/kuvxzonzj-pgteesgzdrxc-wrthwispwxh/ywr-kdjsi-yikdkbmdcp-and- policy-framework/wgvjjhspy-snz-mhgdvukaytfbz for information on the emergency use of other medicines that are authorized by FDA to treat people with COVID-19. Your healthcare provider may talk with you aboutclinical trials for which you may be eligible. It is your choice to be treated or not to be treated with PAXLOVID. Should you decide not to receive it or for your child not to receive it, it will not change your standard medical care. What if I am or ? There is knowledge management advisor treating women or mothers with PAXLOVID. For a motherand unborn baby, the benefit of taking PAXLOVID may be greater than the risk from the treatment. Ifyou are , discuss your options and specific situation with your healthcare provider. It is recommended that you use effective barrier contraception or do not have sexual activity whiletaking PAXLOVID. If you are , discuss your options and specific situation with your healthcare provider. How do I report side effects with PAXLOVID? Contact your healthcare provider if you have any side effects that bother you or do not go away. Report side effects to [employer] at www.fda.gov/medPeaxy[employer] Inc.tch or call 3-337-KDW9569 or you can reportside effects to [facility]. at the contact information provided below. Website Fax number Telephone number www.3Nod How should I store PAXLOVID? Store PAXLOVID [...] (EUA). The EUA is supported by a Manager Of Application Development of Health and Human Service (HHS) declaration that circumstances exist to justify the emergency use of drugs and biological productsduring the COVID-19 pandemic. PAXLOVID for the treatment of wavc-lz-bvwljutl COVID-19 in adults and children [12 years of age andolder weighing at least 88 pounds (40 kg)] [...] telephone number provided below. Website Telephone number wwwMyTradePFGQN81dthrTtKutuan (1-548-Y97-WKKA) You can also go to www.[employer].GenieTown or call for more information. Pfizer Distributed by [employer] [place] [address] [id number] Revised: 23 January 2022 documented in this encounterWright-Patterson [facility]12-27-2022 Miscellaneous Notes* Telephone Encounter - Cherise Sifuentes PA-C - 11/03/2022 2:18 PM EST Called patient to discuss: Nirmatrelvir/Ritonavir (Paxlovid) Eligibility and Patient Discussion [facility] Formulary Restriction Criteria: Adult outpatients 18 years [...] reported. The discussion included alternatives to receiving nirmatrelvir/rit onavir, including clinical trials, and potential the risks and benefits of those alternatives. The patient was provided electronically with the Fact Sheet for Patients, Parents and Caregivers. The patient was also instructed that in addition to the treatment with nirmatrelvir/ritonavir, he/she should continue to self-isolate and use infection control measures (e.g., wear mask, isolate, social distance, avoid sharing personal items, clean and disinfect high touch surfaces, and frequent h andwashing) according to CDC guidelines. The patient stated [...] three tablets twice daily. Cherise Sifuentes PA-C * Telephone Encounter - Asiya Benton PADILLA - 11/03/2022 2:09 PM EST Patient calling wants to make sure Cherise was able to see this my chart message today. 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 CABG Diabetes Father Diabetes Paternal [...] occur. Patient agreeable to treatment plan. Shaneka Yang APRN.ELIZABETH documented in this encounterWright-Patterson Medical Center12-21-2022 Miscellaneous Notes* Telephone Encounter - Jill Alvarez Pss - 10/28/2022 3:15 PM EST I called and let patient know the below information and she stated understanding. I scheduled her for a follow-up on 02/26/22 @ 10:00 am, she confirmed this date and time. Jill Kim Pss * Telephone Encounter - Chad Mariee APRN.CNP - 10/28/2022 10:13 AM EST Please inform pt. there are no concerning findings on L dx mammogram. B/l mammogram due end of February-already scheduled. Please schedule OV afterwards. Thank you. Chad Mariee APRN.ELIZABETH documented in this encounterWright-Patterson Medical Center12-21-2022 History of Present illness Narrative* Nesha Patiño RT(R) - 10/28/2022 10:00 AM EST Radiology Service Progress Note PATIENT NAME: Dom Avila DATE OF SERVICE: October 28, 2022 TIME: 9:40 AM PATIENT IDENTITY VERIFICATION COMPLETED USING TWO (2) IDENTIFIERS: Name and Date of confirmedby patient verbally. 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 CABG Diabetes Father Diabetes Paternal Grandmother Diabetes Maternal Grandfather other (Lung cancer) Brother other (suicide) Son may of been depression Patient Allergies ALLERGIES Allergen Reactions Brilinta [Ticagrelo* Shortness of Breath Crestor [Rosuvastat* Myalgia Keflex [Cephalexin] Other: See Comments facial flushing Lipitor [Atorvastat* Other: See Comments myalgia Lovastatin Other: See Comments myalgia Hughes [Hydrocodone-* Itching Current Medications Current Outpatient Medications [...] but patient already has a chiro she canvisit. Prn flexeril 6. Need for vaccination - ICD9: V05.9, ICD10: Z23 - PNEUMOCOCCAL IMMUNIZATION PPSV 23 7. 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) - ICD9: 414.01, 413.9, ICD10: I25.118 Cont with cardio 8. Ductal carcinoma in situ (DCIS) of left breast - ICD9: 233.0, ICD10: D05.12 Cont with oncology 9. History of hyperparathyroidism - ICD9: V12.29, ICD10: Z86.39 Follow up in 6 months for wellness labs prior.. Cherise Sifuentes PA-C documented in this encounterWright-Patterson Medical Center11-11-2022 Miscellaneous Notes* Telephone Encounter - Seema Escobar RN - 09/18/2022 10:15 AM EST Pt called and is notified of providers results and instructions. Pt voices understanding. Seema Escobar RN * Telephone Encounter - Shakeel Yang MA - 09/18/2022 9:19 AM EST Left message for patient to contact office. Shakeel Yang MA * Telephone Encounter - Clifton Hung MD - 09/17/2022 10:04 PM EST Let patient know her A1c is very good at 6% Her lipid panel showed Trigs slightly;y elevated at 164 (goal<150), HDL low at 31 (goal>50 and was 28), LDL stable at 90 with being on the Zetia. Cont to work on increased walking and reduced fat in diet. documented in this encounterWright-Patterson Medical Center11-09-2022 Miscellaneous Notes* Telephone Encounter - JASMYNE Kaur - 09/16/2022 4:07 PM EST Pt notifying provider that she has seen testing results for CT. Please advise. Thank you. JASMYNE Kaur documented in this encounterWright-Patterson Medical Center11-09-2022 Miscellaneous Notes* Telephone Encounter - Sylwia Hedrick - 09/16/2022 3:26 PM EST Spoke with patient and scheduled CT. Sylwia Hedrick * Telephone Encounter - Suki Ambrocio LPN - 09/16/2022 2:54 PM EST Patient is aware of all information and verbalized understanding. Patient will contact [facility] to schedule. PSS- CT abd/pelvis show a subcentimeter hypodense too small to characterize left hepatic lesion. Will plan to repeat CT in 10-12 weeks. Patient is aware of this information. Please contact patient to schedule CT. She is expecting the call. Suki Ambrocio LPN * Telephone Encounter - Brittni Villar Pss - 09/16/2022 2:16 PM EST Please have patient call the [facility] at [phone] to schedule dx mammogram when relaying information below. Thank you. * Telephone Encounter - Chad Mariee APRN.REPAIRER RESISTANCE WELDING MACHINES - 09/16/2022 9:15 AM EST Please inform pt. that her CT chest shows no acute changes. Radiologist is recommending a L dx mammogram/US to further evaluate ? soft tissue nodular opacity. Please schedule L dx mamm/US soon. CT abd/pelvis show a subcentimeter hypodense too small to characterize left hepatic lesion. Will plan to repeat CT in 10-12 weeks. Thank you. Chad Mariee APRN.REPAIRER RESISTANCE WELDING MACHINES documented in this encounterWright-Patterson Medical Center11-02-2022 Miscellaneous Notes* Telephone Encounter - Latrice Dunn LPN - 09/09/2022 2:28 PM EDT Pt was notified of results via phone. See TE 09/09/22. Latrice Dunn LPN documented in this encounterWright-Patterson Medical Center11-02-2022 Miscellaneous Notes* Telephone Encounter - Latrice Dunn LPN - 09/09/2022 2:27 PM EDT Patient notified of results and provider's instructions. Patient verbalizes understanding. Latrice Dunn LPN * Telephone Encounter - Cherise Sifuentes PA-C - 09/09/2022 12:57 PM EDT US of abdomen is okay. Shows fatty liver. Await CT scan results. H. Pylori test was negative. Looking at Dr. Harman note, he wanted to start a PPI after the h.pylori test. I will send one in for her to start. Cherise Sifuentes PA-C documented in this encounterWright-Patterson Medical Center11-02-2022 History of Present illness Narrative* Echo Fernandez RDMS - 09/09/2022 7:45 AM EDT Radiology Service Progress Note PATIENT NAME: Dom Avila DATE OF SERVICE: September 09, 2022 TIME: 8:26 AM PATIENT IDENTITY VERIFICATION COMPLETED USING TWO (2) IDENTIFIERS: Name and Date of confirmedby patient verbally. FALL SCREENING: Has the patient [...] 09, 2022 8:26 AM documented in this encounterWright-Patterson Medical Center11-01-2022 History of Present illness Narrative* Jocelyne Sands LPN - 09/08/2022 9:11 AM EDT Patient presented for H. Pylori Breath testing per Dr Hung. Obtained baseline sample at 9:05am. Patient then drank Pranactin-Citric solution. Waited full 15 minutes and obtained second sample at 9:22am. Patient tolerated testing well with no problems. LOT # [id number] EXP 09/07/2024 Jocelyne Sands LPN documented in this encounterWright-Patterson Medical Center10-31-2022 Miscellaneous Notes* Telephone Encounter - Shakeel Yang MA - 09/07/2022 3:08 PM EDT Patient contacted and scheduled. Given instructions voiced understanding. Shakeel Yang MA documented in this encounterWright-Patterson Medical Center10-27-2022 History of Present illness Narrative* Clifton Hung MD - 09/03/2022 2:40 PM EDT Chief Complaint Patient presents with: Nausea HPI Dom Avila is a 67 year old female who presents here today for not feeling well. Patient with hx of DM, Hyperlipidemia, hypertension, CAD, SEBAS, Hx of TIA, Vit D def as well as those reviewed and addressed below and in ROS. Patient had sent me a my chart message on 08/28/2022 stating: I went to see Chad Mariee today (please see notes on my chart). She is very concerned that I'm not feeling well and told me to follow up with you but also went ahead and scheduled some tests and talked about possibly doing an EGD with Dr. Brand. She stressed that she wanted me to share all this with you right away. I have many dayswhere I just don't feel well over all and I still don't eat more than 1 full meal a day. Being thatthere has been cancer in my history and [...] her throat. On occasional may wake up witha cough. Still has the loose stools with certain foods but no changes from her base line. No melena or hematochezia. Sometimes the stool is automobile detailer in color. No longer has a gal bladder. No recent fevers. Has a CT of the abdomen and pelvis set up for 09/15/2022. Mother with Hx of pancreatic cancer. Past medical history, appointments, medications, allergies reviewed. 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 CABG Diabetes Father Diabetes Paternal Grandmother Diabetes Maternal Grandfather other (Lung cancer) Brother other (suicide) Son may of been depression Patient Allergies ALLERGIES Allergen Reactions Brilinta [Ticagrelo* Shortness of Breath Crestor [Rosuvastat* Myalgia Keflex [Cephalexin] Other: See Comments facial flushing Lipitor [Atorvastat* Other: See Comments myalgia Lovastatin Other: See Comments myalgia Hughes [Hydrocodone-* Itching Current Medications Current Outpatient Medications [...] tenderness without guarding. Bowel sounds normal. No masses,organomegaly. Health Maintenance List DEPRESSION ASSESSMENT Never done [...] 65+ Clifton Hung MD documented in this encounterWright-Patterson Medical Center10-21-2022 Miscellaneous Notes* Telephone Encounter - Shakeel Yang MA - 08/28/2022 5:28 PM EDT Patient contacted and scheduled. Shakeel Yang MA * Telephone Encounter - Clifton Hung MD - 08/28/2022 5:08 PM EDT See if she can come Wednesday evening. I have some one day holds then. * Telephone Encounter - Shakeel Yang MA - 08/28/2022 2:[address] Hung how soon would you like her seen. She is scheduled with Cherise 10/05/2022 for 6 month follow up. Shakeel Yang MA documented in this encounterWright-Patterson Medical Center10-21-2022 Instructions* Patient Instructions* Sima Dumont APRN.CNP - 08/28/2022 10:40 AM EDT Silicone based lubricant such as Astroglide. Look for one that is hypoallergenic. Continue Revaree. Continue using Aquaphor and minimize use of incontinence pads to protect the skin. documented in this encounterWright-Patterson Medical Center10-21-2022 History of Present illness Narrative* Sima Dumont, ELINA - 08/28/2022 10:22 AM EDT Advertising Sales Executive offered: Patient declines. Dom Avila is a 67 year old female who presents for problem visit follow- up vaginal itching. HPI: Has used Revaree for past month and vaginal itching has completely resolved. Continues to havesome burning with SI but this has improved by 40%. No longer wears protection during the night for incontinence. 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 CABG Diabetes Father Diabetes Paternal [...] both Oral and Rectal, Enteric Tube, Stoma orIndwelling Catheter, Enteric Contrast as designated per enteric [...] radiology test) CT Chest ABD/PEL-Inject, intravenously, once for1 dose.No IV access, insert saline lock prior [...] the skin. Follow-up as needed. Sima Dumont APRN.ELIZABETH I spent a total of 20 minutes on the date of the service which included preparing to see the patient, gkrs-bx-axrn patient care, completing clinical documentation, obtaining and/or reviewing separately obtained history, performing a medically appropriate examination, and counseling and educating the patient/family/caregiver. documented in this encounterWright-Patterson [facility] Center10-21-2022 History of Present illness Narrative* Chad Mariee APRN.CNP - 08/28/2022 8:25 AM EDT Chief Complaint Patient presents with: Established Patient: 6 MO FOLLOW UP HPI: Dom Avila is a 67 year old female who presents here today for follow up breast cancer. Per Dr. Georges previous note: H/o obm-qjfuoxq-xoxkkxeph diabetes mellitus, hypertension, ASCAD, and TIA who presented with an abnormal mammogram. She denies palpable discrete masses, but she notes lumpy breast. She denies nipple discharge. She denies previous breast biopsies. She denies previous breast surgeries. She notes occasional twinges of pain of her chest wall. She notes no breast or ovarian cancer in her family, mother of pancreatic cancer at age 59 andbrother of lung cancer at age 58. She [...] breast lumpectomy for DCIS on 04/08/2021 at [facility] Pathology (from [facility]) reveals - ductal carcinoma in situ...,size of DCIS - 1.0 x 0.4 cm...,architectural type - cribriform..., nuclear grade 1-2..., necrosis - present central (expansive comedo necrosis)..., biopsy cavity is 0.5 cm from closest anterior margin (which is skin)..., ER >95%, LA >95% Postoperative course is unremarkable with no swelling or pain in her lumpectomy site. She is here today to discuss adjuvant therapy and chemoprevention for breast cancer. RADIATION:06/03/21 - 06/24/21 Current therapy:Tamoxifen Began after radiation Appetite:I don't have my appetite since before radiation. Wt. down 9# over past 6 months. Energy level:Some days it's good. Some days it's not so good. Denies fevers. Resp:denies cough or sob-follow up by [facility] h/o seasonal allergies/sleep apnea- wears CPAP at hs Cardiac:denies chest pain/occ. palpitations-Followed [...] C (96.8 F) Ht 161 cm (5' 3.39) Wt 67.1 kg (148 lb) BMI 25.90 [...] and edited as necessary for today's visit. Chad Mariee APRN.ELIZABETH documented in this encounterWright-Patterson Medical Center09-07-2022 Miscellaneous Notes* Telephone Encounter - Daniel Hill Pss - 07/15/2022 11:29 AM EDT Patient has been identified by name and [...] mouth once daily. Please review and advise. Daniel Hill Pss documented in this encounterWright-Patterson Medical Center09-01-2022 Instructions* Patient Instructions* Sima Dumont APRN.CNP - 07/09/2022 8:21 AM EDT Instructions for [...] or ten at a time. Remind yourself todo these exercises by starting them every time [...] agents from your environment. documented in this encounterWright-Patterson Medical Center09-01-2022 History of Present illness Narrative* Sima Dumont APRN.CNP - 07/09/2022 7:49 AM EDT Advertising Sales Executive offered: Patient declines. Dom Avila is a 66 year old female [...] especially on inner left vagina. Sometimes lubricant umanzor. Uses vaseline for lubrication because ofbeing sensitive to commercial lubricants. Has stress and urge incontinence 1-2 times/day - wears a pad during daytime hours for protection. 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 CABG Diabetes Father Diabetes Paternal [...] external genitalia normal, normal Bartholin's glands, urethra, [place]'s glands, no vulvar lesions, physiologic discharge present, [...] Level: 4 - Moderate documented in this encounterWright-Patterson [facility] Center08-31-2022 Miscellaneous Notes* Telephone Encounter - Clifton Hung MD - 07/08/2022 1:27 PM EDT Info noted. documented in this encounterWright-Patterson Medical Center08-26-2022 Miscellaneous Notes* Telephone Encounter - Clifton Hung MD - 07/03/2022 8:06 AM EDT The following approved medication requests have been transmitted electronically. Requested Prescriptions Signed Prescriptions Disp Refills fluconazole (DIFLUCAN) 150 mg tablet 3 tablet 1 Si tab by mouth every other day for 3 doses Clifton Hung MD documented in this encounterWright-Patterson Medical Center08-23-2022 History of Present illness Narrative* Martha Montoya PA-C - 06/30/2022 3:14 PM EDT This note was created using jobs-dial LLCter. Subjective Dom Avila is a 66 year old female. 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 360 capsule3 acetaminophen (TYLENOL) 500 mg tablet Take 1,000 [...] Date 2D ECHO (EXEP) 06/30/2017 EF=65%, trivial CT, TI and 1+ PI Unchanged from 04/2017 2D ECHO (EXEP) 05/14/2021 EF=60%, 1+ TI, trival CT, AI, PI 2D ECHO (EXEP) 09/16/2021 EF=60%, [...] cancer) Mother Coronary Artery Disease Father 25 CT @ 25. CABG Diabetes Father Diabetes Paternal [...] kg (150 lb 3.2 oz) SpO2 99% BMI27.03 kg/m Physical Exam Vitals reviewed. Constitutional: Appearance: [...] DETECT Martha Montoya PA-C documented in this encounterWright-Patterson Medical Center08-09-2022 Miscellaneous Notes* Telephone Encounter - Latrice Dunn LPN - 06/16/2022 12:27 PM EDT Please see pt's message. Latrice Dunn LPN documented in this encounterWright-Patterson Medical Center04-20-2022 History of Present illness Narrative* Chad Mariee APRN.ELIZABETH - 02/25/2022 10:00 AM EDT Chief Complaint Patient presents with: Established Patient: SCP HPI: Dom Avila is a 66 year old female who presents here today for SCP/DCIS. Per Dr. Georges previous note: H/o bea-jsnxqou-kxwctjidu diabetes mellitus, hypertension, ASCAD, and TIA who presented with an abnormal mammogram. She denies palpable discrete masses, but she notes lumpy breast. She denies nipple discharge. She denies previous breast biopsies. She denies previous breast surgeries. She notes occasional twinges of pain of her chest wall. She notes no breast or ovarian cancer in her family, mother of pancreatic cancer at age 59 andbrother of lung cancer at age 58. She [...] breast lumpectomy for DCIS on 04/08/2021 at [facility] Pathology (from [facility]) reveals - ductal carcinoma in situ...,size of DCIS - 1.0 x 0.4 cm...,architectural type - cribriform..., nuclear grade 1-2..., necrosis - present central (expansive comedo necrosis)..., biopsy cavity is 0.5 cm from closest anterior margin (which is skin)..., ER >95%, LA >95% Postoperative course is unremarkable with no swelling or pain in her lumpectomy site. She is here today to discuss adjuvant therapy and chemoprevention for breast cancer. RADIATION:06/03/21 - 06/24/21 Current therapy:Tamoxifen Began after radiation I just don't feel good some mornings and I don't eat breakfast now. Symptoms began after radiation. +heartburn at night. Has appt. with PCP to discuss this week. Appetite:I don't have my appetite since before radiation. Wt. down 2# since June 2021 Energy level:Eh, it's been winter time. It's ok. Denies [...] normoactive, soft, non-tender, non-distended, without organomegaly or palpablemasses EXTREMITIES No edema NEURO Awake, alert and [...] and edited as necessary for today's visit. Chad Mariee APRN.[email or web address] documented in this encounterW[facility]04-18-[facility]22 Miscellaneous Notes* Letter - Mammography Coordinator - 02/23/2022 11:35 AM EDT February 23, 2022 PID: [id number] Dom Avila [address] [place] [address] Dear Ms. Avila, We are pleased to [...] report will be kept on [facility] at [facility] as part of your permanent medical record and are available for your continuing care. Thank you for allowing us to help in meeting your health care needs. Sincerely, Dr. Benedict Interpreting Radiologist [facility] (Normal over 40) documented in this encounterWright-Patterson [facility]04-18-2022 History of Present illness Narrative* RT Conner(R) - 02/23/2022 10:10 AM EDT Radiology Service Progress Note PATIENT NAME: Dom Avila DATE OF SERVICE: February 23, 2022 TIME: 10:17 AM PATIENT IDENTITY VERIFICATION COMPLETED USING TWO (2) IDENTIFIERS: Name and Date of confirmedby patient verbally. FALL SCREENING: Has the patient [...] 23, 2022 10:17 AM documented in this encounterWright-[facility]04-05-2022 Miscellaneous Notes* Telephone Encounter - Kassandra Mitchell Ma - 02/10/2022 1:25 PM EDT Last office visit: 09/26/21 F/u scheduled: 04/03/22 Kassandra Mitchell Ma documented in this encounterW[facility]02-01-2017 Evaluation note* Diagnosis Onset Date Resolution Status Essential hypertension chron ic Palpitations chronic Presence of stent in coronary artery December, [facility] Work Phone: [phone]) 276-407502-01-2017 Evaluation note* Diagnosis Onset Date Resolution Status Essential hypertension chron ic Palpitations chronic Presence of stent in coronary artery December, chronic Diarrhea chronic Elevated lipase chronic [facility] Work Phone: Evaluation note* Diagnosis Breast neoplasm, Tis (DCIS), left Encounter for screening mammogram for malignant neoplasm of breast Other screening mammogram documented [facility] this [facility] [place] [facility]* Diagnosis Breast neoplasm, Tis (DCIS), left- Primary documented in this encounter [facility] note* Diagnosis Onset Date Resolution Status Atherosclerotic heart diseas e of curyung coronary artery without angina pectoris chronic Essential hypertension chron ic Mixed hyperlipidemia chronic Palpitations chronic Presence of stent in coronary artery December, chronic [facility] Work Phone: Evaluation note* Diagnosis Nasal lesion- Primary Other diseases of nasal cavity and sinuses documented in this encounter [facility] [place] [facility]* Diagnosis Vagina itching- Primary Pruritus of genital organs Dysuria Urinary frequency Superficial dyspareunia Mixed incontinence Mixed incontinence urge and stress (male)(female) Vaginal atrophy Postmenopausal atrophic vaginitis Cystocele, midline Long-term current use of tamoxifen documented in this encounter [facility] [place] [facility]* Diagnosis Vaginal atrophy- Primary Postmenopausal atrophic vaginitis Vulvar dermatitis Other inflammatory disease of cervix, vagina and vulva documented in this encounter [facility] [place] [facility]* Diagnosis Breast neoplasm, Tis (DCIS), left- Primary Encounter for screening mammogram for high-risk patient Nausea Nausea alone Pain of upper abdomen Abdominal pain, other specified site documented in this encounter [facility] note* Diagnosis Epigastric pain- Primary Abdominal pain, epigastric Nausea Nausea alone Need for vaccination Need for prophylactic vaccination and inoculation against unspecified single disease [facility] [place] [facility]* Diagnosis Epigastric pain Abdominal pain, epigastric documented in this encounter [facility] [place] [facility]* Diagnosis Abnormal CT of the abdomen- Primary Nonspecific (abnormal) findings on radiological and other examination of abdominal area, including retroperitoneum Liver lesion Other specified disorders of liver Ductal carcinoma in situ (DCIS) of left breast Abnormal CT of the chest Nonspecific (abnormal) findings on radiological and other examination of other intrathoracic organs documented in this encounter [facility] [place] [facility]* Diagnosis Controlled type 2 diabetes mellitus without complication, without long-term current use of insulin (HCC)- Primary Essential hypertension Unspecified essential hypertension Mixed hyperlipidemia Vitamin D deficiency Unspecified vitamin D deficiency Upper back pain Need for vaccination Need for prophylactic vaccination and inoculation against unspecified single disease 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) Ductal carcinoma in situ (DCIS) of left breast History of hyperparathyroidism Personal history of other endocrine, metabolic, and immunity disorders documented [facility] this [facility] [place] [facility]* Diagnosis URI, acute- Primary Acute upper respiratory infections of unspecified site documented in this encounter [facility] [place] [facility]* Diagnosis Other diabetic neurological complication associated with type 2 diabetes mellitus (HCC)- Primary Ingrowing toenail Ingrowing nail [facility] [place] [facility]* Diagnosis Sore throat- Primary Acute pharyngitis Acute cough [facility] this [facility] [place] [facility]* Diagnosis Onset Date Resolution Status Atherosclerotic heart diseas e of curyung coronary artery without angina pectoris chronic Essential hypertension chron ic Mixed hyperlipidemia chronic Nausea chronic Palpitations chronic Presence of stent in coronary artery December, chronic Epigastric pain chronic Fatty liver chronic IBS (irritable bowel syndrome) chronic [facility] Work Phone: Evaluation note* Diagnosis Vaginal discharge- Primary Leukorrhea, not specified as infective documented [facility] [place] [facility]* Diagnosis Bacterial vaginosis- Primary Vaginitis and vulvovaginitis, unspecified [facility] [place] [facility]* Diagnosis URI with cough and congestion- Primary [facility] [place] [facility]* Diagnosis Onset Date Resolution Status Fatty liver chronic Diarrhea acute [facility] Work Phone: Evaluation note* Diagnosis Bacterial sinusitis- Primary Unspecified sinusitis (chronic) documented [facility] this [facility] [place] [facility]* Diagnosis RLS (restless legs syndrome) Restless legs syndrome (RLS) documented [facility] this [facility] [place] [facility]* Diagnosis 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 Encounter for screening mammogram for high-risk patient documented [facility]* Diagnosis Encounter for Medicare annual wellness exam- Primary Routine general medical examination at a health care facility Controlled type 2 diabetes mellitus without complication, without long-term current use of insulin (HCC) Diabetic eye exam ([facility]) Type II or unspecified type diabetes mellitus without mention of complication, not stated as uncontrolled Essential hypertension Unspecified essential hypertension Mixed hyperlipidemia 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) History [...] Other specified counseling documented [facility]* Diagnosis Onset Date Resolution Status Atherosclerotic heart diseas e of curyung coronary artery without angina pectoris chronic Essential hypertension chron ic Palpitations chronic Diarrhea chronic Elevated lipase chronic [facility] Work Phone: Evaluation note* Diagnosis Dysuria- Primary Urine frequency Urinary frequency Vaginal discharge Leukorrhea, not specified as infective Vulvovaginal discomfort Unspecified symptom associated with female genital organs [facility]* Diagnosis Abnormal CT of the abdomen Nonspecific (abnormal) findings on radiological and other examination of abdominal area, including retroperitoneum Liver lesion Other specified disorders of liver Ductal carcinoma in situ (DCIS) of left breast documented [facility]* Diagnosis Epigastric pain Abdominal pain, epigastric [facility] Breast neoplasm, Tis (DCIS), left Encounter for screening mammogram for high-risk patient [facility] Diagnosis Ductal carcinoma in situ (DCIS) of left breast Abnormal CT of the chest Nonspecific (abnormal) findings on radiological and other examination of other intrathoracic organs [facility] Diagnosis Essential hypertension- Primary Unspecified essential hypertension Controlled type 2 diabetes mellitus without complication, without long-term current use of insulin (HCC) Mixed hyperlipidemia 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 RLS (restless legs syndrome) Restless legs syndrome (RLS) Obstructive sleep apnea on CPAP Obstructive sleep apnea (adult) (pediatric) documented in this encounter [facility]* Diagnosis Vaginal yeast infection- Primary Candidiasis of vulva and vagina Essential hypertension Unspecified essential hypertension [facility] Diagnosis Onset Date Resolution Status Diarrhea chronic Elevated lipase chronic [facility] Work [facility] [place] [facility]* Diagnosis Diabetic eye exam (HCC) Type II or unspecified type diabetes mellitus without mention of complication, not stated as uncontrolled documented in this encounter [facility] note* Diagnosis Essential hypertension- Primary Unspecified essential hypertension documented in this encounter [facility] note* Diagnosis Hyperglycemia- Primary Other abnormal glucose Pancreatic insufficiency Other specified disease of pancreas documented in this encounter [facility]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 [place] [address] Referral ID Status Reason Start Date Expiration Date V isits Requested Visits Authorized [id number] Closed Auto-Generate d Referral 08/28/2022 09/27/2023 1 1 [facility] for referral (narrative)* Diagnostic Procedure Only (Routine) - Closed Specialty Diagnoses / Procedures Referred By Contac t Referred To Contact [facility] IM[facility] Diagnoses Ductal carcinoma in situ (DCIS) of left breast Encounter for screening mammogram for high-risk patient Procedures GUILLERMINA SCREENING W ANGELA SCREENING DIGITAL BREAST TOMOSYNTHESIS BI SCREENING MAMMOGRAPHY BI 2-VIEW BREAST INC CAD [facility], 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 [address] [place] [address] Br Imaging [address] [place] [address] Referral ID Status Reason Start Date Expiration Date V isits Requested Visits Authorized [id number] Closed Auto-Generate d Referral 02/26/2023 03/27/2024 1 1 [facility] for referral (narrative)* Diagnostic Procedure Only (Routine) - Authorized Specialty Diagnoses / Procedures Referred By Jared hernández Referred To Contact [facility] Diagnoses Ductal carcinoma in situ (DCIS) of left breast Encounter for screening mammogram for high-risk patient Procedures GUILLERMINA SCREENING W ANGELA SCREENING DIGITAL BREAST TOMOSYNTHESIS BI SCREENING MAMMOGRAPHY BI 2-VIEW BREAST INC [facility], 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 [address] [place] [address] Br Imaging [address] [address] Referral ID Status Reason Start Date Expiration Date Visits Requested Visits Authorized [id number] Authorized Auto-Generat ed Referral 03/14/2025 10/14/2025 1 1 [facility] for visit Narrative* Diagnostic Procedure Only (Routine) - Closed Specialty Diagnoses / Procedures Referred By Jared hernández Referred To Contact [facility] Diagnoses Breast neoplasm, Tis (DCIS), left Encounter for screening mammogram for malignant neoplasm of breast Procedures GUILLERMINA SCREENING SCREENING MAMMOGRAPHY BI 2-VIEW BREAST INC Alberto Mehta MD [address] [place] [address] [facility] Imaging [address] [place] [address] Referral ID Status Reason Start Date Expiration Date V isits Requested Visits Authorized [id number] Closed Auto-Generate d Referral 02/23/2022 07/30/2022 1 1 [facility] for visit Narrative* Diagnostic Procedure Only (Routine) - Closed Specialty Diagnoses / Procedures Referred By Jared t Referred To Contact [facility] IM[facility] Diagnoses Breast neoplasm, Tis (DCIS), left Encounter for screening mammogram for high-risk patient Procedures GUILLERMINA SCREENING SCREENING MAMMOGRAPHY BI 2-VIEW BREAST INC CAD Chad Mariee, TERRA.REPAIRER RESIST[employer] [address] [place] [address] [facility] Imaging [address] [place] [address] Referral ID Status Reason Start Date Expiration Date V isits Requested Visits Authorized [id number] Closed Auto-Generate d Referral 08/28/2022 09/27/2023 1 1 [facility] for visit Narrative* Diagnostic Procedure Only (Routine) - Closed Specialty Diagnoses / Procedures Referred By Jared hernández Referred To Contact CT IMAGING Diagnoses Abnormal CT of the abdomen Liver 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 Procedures CT ABD/PEL W IVCON CT ABD & PELVIS W/CONTRAST Chad Mariee APRN.REPA[employer]ER [employer] [address] [place] [address] Ct Imaging [id number] Referral ID Status Reason Start Date Expiration Date V isits Requested Visits Authorized [id number] Closed Auto-Generate d Referral 11/25/2022 12/25/2022 2 2 [facility] for visit Narrative* Diagnostic Procedure Only (Routine) - Closed Specialty Diagnoses / Procedures Referred By Jared t Referred To Contact [facility] IM[facility] Diagnoses Ductal carcinoma in situ (DCIS) of left breast Abnormal CT of the chest Procedures GUILLERMINA DIAGNOSTIC LT DIAGNOSTIC MAMMOGRAPHY COMPUTER-AIDED DETCJ UNI Chad Mariee, TERRA.REPA[employer]ER [employer] [address] [place] [address] [facility] Imaging [address] [place] [address] Referral ID Status Reason Start Date Expiration Date V isits Requested Visits Authorized [id number] Closed Auto-Generate d Referral 09/16/2022 10/16/2023 1 1 [facility] for visit Narrative* Diagnostic Procedure Only (Routine) - Closed Specialty Diagnoses / Procedures [facility] Diagnoses Ductal carcinoma in situ (DCIS) of left breast Encounter for screening mammogram for high-risk patient Procedures GUILLERMINA SCREENING W ANGELA SCREENING DIGITAL BREAST TOMOSYNTHESIS BI SCREENING MAMMOGRAPHY BI 2-VIEW BREAST INC [facility] [place], 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 [address] [place] [address] Br Imaging [address] [place] [address] Referral ID Status Reason Start Date Expiration Date V isits Requested Visits Authorized [id number] Closed Auto-Generate d Referral 02/26/2023 03/27/2024 1 1 [facility] Diagnostic Procedure Only (Routine) - Closed Specialty Diagnoses / Procedures Referred By Contac t Referred To Contact [facility] Diagnoses Ductal carcinoma in situ (DCIS) of left breast Encounter for screening mammogram for high-risk patient Procedures GUILLERMINA SCREENING W ANGELA SCREENING DIGITAL BREAST TOMOSYNTHESIS BI SCREENING MAMMOGRAPHY BI 2-VIEW BREAST INC [facility] Surgery[facility], 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 [address] [place] [address] Phone: tel: fax: [facility] [address] [place] [address] Referral ID Status Reason Start Date Expiration Date V isits Requested Visits Authorized [id number] Closed Auto-Generate d Referral 03/14/2025 10/14/2025 1 1 [facility] Advance Directives No Advanced Directives Records FoundDocuments on File Type Date Recorded Patient Associate Justice Expl anation Advance Directive(s) 06/24/2021 1:42 PM Advance Directive(s) 08/09/2018 8:15 AM Documents on File Type Date Recorded Patient Associate Justice Expl anation Advance Directive(s) 06/24/2021 1:42 PM Advance Directive(s) 08/09/2018 8:15 AM Advance Directive Response Recorded Date/ Time Advance Directives Yes October 12, 2018 8:15am Living Will No May 05, 2021 10:00am Power of Dinkey Mechanic No May 05 10:00am Documents on File Type Date Recorded Patient Associate Justice Expl anation Advance Directive(s) 04/07/2022 12:26 PM Documents on File Type Date Recorded Patient Associate Justice Expl anation Advance Directive(s) 04/07/2022 12:26 PM Advance Directive Response Recorded Date/ Time Advance Directives Yes October 12, 2018 7:15am Living Will Yes November 30 12:39pm Power of Dinkey Mechanic Yes November 30, 2022 12:39pm Advance Directive Response Recorded Date/ Time Name of Medical Power of Dinkey Mechanic SPOUSE November 30, 2022 12:39pm Advance Directives Yes October 12, 2018 7:15am Living Will Yes November 30 12:39pm Power of Dinkey Mechanic Yes November 30, 2022 12:39pm Advance Directive Response Recorded Date/ Time Name of Medical Power of Dinkey Mechanic SPOUSE November 30, 2022 1:39pm Advance Directives Yes October 12, 2018 8:15am Living Will Yes November 30 1:39pm Power of Dinkey Mechanic Yes November 30, 2022 1:39pm Advance Directive Response Recorded Date/ Time Advance Directives Yes October 12, 2018 8:15am Living Will Yes November 30 1:39pm Power of Dinkey Mechanic Yes November 30, 2022 1:39pm Advance Directive Response Recorded Date/ Time Name of Medical Power of Dinkey Mechanic recalled September 11, 2023 2:34pm Advance Directives Yes October 12, 2018 7:15am Living Will Yes September 11 2:34pm Power of Dinkey Mechanic Yes September 11, 2023 2:34pm Advance Directive Response Recorded Date/ Time Name of Medical Power of Dinkey Mechanic recalled September 11, 2023 2:34pm Name of Medical Power of Dinkey Mechanic Carmella December 22, 2023 1:32pm Advance Directives Yes October 12, 2018 7:15am Living Will Yes December 22 024 1:32pm Power of Dinkey Mechanic Yes December 22, 2023 1:32pm Advance Directive Response Recorded Date/ Time Name of Medical Power of Dinkey Mechanic recalled September 11, 2023 2:34pm Name of Medical Power of Dinkey Mechanic Carmella December 22, 2023 1:32pm Name of Medical Power of Dinkey Mechanic carmella s/o December 28, 2023 12:43am Advance Directives Yes October 12, 2018 7:15am Living Will Yes December 28, 024 12:43am Power of Dinkey Mechanic Yes December 28, 2023 12:43am Chief Complaint and Reason for Visit Chief Complaint 6 m fu E-ORDER Reason for Visit 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 Essential hypertension Mixed hyperlipidemia Palpitations Presence of stent in coronary artery Chief Complaint 6 m fu E-ORDER HOLTER PALPS SOB.PVC,CAD HX SOB.PVC,CAD HX Reason for Visit 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 Essential hypertension Mixed hyperlipidemia Palpitations Presence of stent in coronary artery Chief Complaint 3 M FU Consult E ORDERS E ORDERS Reason for Visit 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 Essential hypertension Mixed hyperlipidemia Nausea Palpitations Presence of stent in coronary artery Epigastric pain Fatty liver IBS (irritable bowel syndrome) Chief Complaint Consult E ORDERS E ORDERS 2 WK FU TYPE 2 DM, DIARRHEA Reason for Visit Fatty liver Diarrhea Chief Complaint TYPE 2 DM, DIARRHEA 6 M FU 3 MO FU TYPE 2 DM, DIARRHEA Reason for Visit 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 Essential hypertension Palpitations Diarrhea Elevated lipase Chief Complaint Lisinopril Increased 6 MO F/U (PFM PT) R42 - Dizziness and giddiness general illness CP, HX CAD CP, HX CAD Reason for Visit Essential hypertensi on Palpitations Presence of stent in coronary artery Chief Complaint 6 MO F/U (PFM PT) R42 - Dizziness and giddiness general illness 30 DAY MONITOR CP, HX CAD CP, HX CAD Amb Documentation 6 MO FU Reason for Visit Essential hypertensi on Palpitations Presence of stent in coronary artery Diarrhea Elevated lipase Chief Complaint 6 MO F/U (PFM PT) R42 - Dizziness and giddiness general illness 30 DAY MONITOR CP, HX CAD CP, HX CAD Amb Documentation 6 MO FU GENERAL ILLNES Reason for Visit Essential hypertensi on Palpitations Presence of stent in coronary artery Diarrhea Elevated lipase Chief Complaint 6 MO F/U (PFM PT) R42 - Dizziness and giddiness general illness 30 DAY MONITOR CP, HX CAD CP, HX CAD Amb Documentation 6 MO FU GENERAL ILLNES GALVAN Reason for Visit Essential hypertensi on Palpitations Presence of stent in coronary artery Diarrhea Elevated lipase Chief Complaint general illness 30 DAY MONITOR CP, HX CAD CP, HX CAD Amb Documentation 6 MO FU GENERAL ILLNES GALVAN Other abnormal tumor markers Reason for Visit Diarrhea Elevated lipase Family History No Family History Records Found Relationship Condition Age at Onset Recorded Date/T shashi mother Malignant neoplasm Unknown father Myocardial infarction Unknown Coronary artery disease Unknown brother Malignant neoplasm Unknown Reason for Referral Specialty Diagnoses / Procedures Referred By Jared t Referred To Contact CT IMAGING Diagnoses Breast neoplasm, Tis (DCIS), left Nausea Pain of upper abdomen Procedures CT CHEST W IVCON DIAGNOSTIC COMPUTED TOMOGRAPHY THORAX W/CONTRAST Chad Mariee, 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 [address] [place] [address] Ct Imaging Referral ID Status Reason Start Date Expiration Date Visits Requested Visits Authorized [id number] Pending Review Auto-Generat ed Referral 2 09/27/2023 1 1 Specialty Diagnoses / Procedures Referred By Contac t Referred To Contact CT IMAGING Diagnoses Breast neoplasm, Tis (DCIS), left Nausea Pain of upper abdomen Procedures CT ABD/PEL W IVCON CT ABD & PELVIS W/CONTRAST Chad Mariee, TERRA.REPAIRER [employer] [address] [place] [address] Ct Imaging Referral ID Status Reason Start Date Expiration Date Visits Requested Visits Authorized [id number] Pending Review Auto-Generat ed Referral 2 09/27/2023 1 1 Specialty Diagnoses / Procedures Referred By Contac t Referred To Contact BR IMAGING Diagnoses Breast neoplasm, Tis (DCIS), left Encounter for screening mammogram for high-risk patient Procedures GUILLERMINA SCREENING SCREENING MAMMOGRAPHY BI 2-VIEW BREAST INC CAD Chda Mariee, TERRA.REPAIRER [employer] [address] [place] [address] Br Imaging [address] [place] [address] Referral ID Status Reason Start Date Expiration Date Visits Requested Visits Authorized [id number] Authorized Auto-Generat ed Referral 2 09/27/2023 1 1 Specialty Diagnoses / Procedures Referred By Contac t Referred To Contact Gastroenterology Diagnoses Nausea Epigastric pain Procedures CONSULT TO GASTROENTEROLOGY OFFICE/OUTPATIENT [facility] MDM 60-74 MINUTES Clifton Hung MD [address] [place] [address] Referral ID Status Reason Start Date Expiration Date Visits Requested Visits Authorized [id number] Authorized PCP Requested Referral 2 09/03/2023 1 1 Specialty Diagnoses / Procedures Referred By Contac t Referred To Contact US IMAGING Diagnoses Epigastric pain Procedures US ABD RT UPPER QUADRANT US ABDOMINAL REAL TIME W/IMAGE LIMITED Clifton Hung MD [address] [place] [address] Us Imaging Referral ID Status Reason Start Date Expiration Date Visits Requested Visits Authorized [id number] Authorized Auto-Generat ed Referral 10/03/2023 1 1 Specialty Diagnoses / Procedures Referred By Contac t Referred To Contact Urology Diagnoses Urinary frequency Procedures CONSULT TO UROLOGY OFFICE/OUTPATIENT [facility] 60 MINUTES Francine Madrid APRN.REPA[employer]ER [employer] [address] [place] [address] Referral ID Status Reason Start Date Expiration Date Visits Requested Visits Authorized [id number] Authorized PCP Requested Referral 04/20/2024 04/20/2025 1 1 Specialty Diagnoses / Procedures Referred By Contac t Referred To Contact Endocrinology Diagnoses Adenoma of right adrenal gland Procedures CONSULT TO ENDOCRINOLOGY OFFICE/OUTPATIENT [facility] 60 MINUTES Ori Landin, DO [address] [place] [address] Referral ID Status Reason Start Date Expiration Date Visits Requested Visits Authorized [id number] Authorized PCP Requested Referral 05/23/2024 05/23/2025 1 1 Specialty Diagnoses / Procedures Referred By Contac t Referred To Contact CT IMAGING Diagnoses 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) Procedures CT ADRENAL WO/W IVCON CT ABDOMEN W & W/O CONTRAST Alexa Matute MD [address] [place] [address] [place] [id number] Referral ID Status Reason Start Date Expiration Date Visits Requested Visits Authorized [id number] Pending Review Auto-Generat ed Referral 07/11/2024 08/10/2025 1 1 Referral ID Status Reason Start Date Expiration Date V isits Requested Visits Authorized [id number] Closed Auto-Generate d Referral 08/15/2024 10/14/2024 1 1 Health Concerns Infection Onset Date Last Indicated Resolved Time COVID-19 Rule-Out 11/02/2022 11/02/2022 11/03/2022 4:53 AM EST Infection Onset Date Last Indicated Resolved Time COVID-19 Rule-Out 11/02/2022 11/02/2022 11/03/2022 4:53 AM EST COVID-19 Confirmed 11/02/2022 11/02/2022 Infection Onset Date Last Indicated Resolved Time COVID-19 Confirmed 11/02/2022 11/02/2022 3 8:53 PM EST Summary Purpose Additional Source Comments Source Comments (unrecognize d section and content) In the event this informatio n is protected by the Federal Confidentiality of Alcohol and Drug Abuse Patient Records regulations: The Federal rules restrict any use of the information to criminally investigate or prosecute any alcohol or drug abuse patient.[facility] the event this information is protected by the Federal Confidentiality of Alcohol and Drug Abuse Patient Records regulations: The Federal rules restrict any use of the information to criminally investigate or prosecute any alcohol or drug abuse patient.[facility] CenterIn the event this information is protected by the Federal Confidentiality of Alcohol and Drug Abuse Patient Records regulations: The Federal rules restrict any use of the information to criminally investigate or prosecute any alcohol or drug abuse patient.[facility] CenterIn the event this information is protected by the Federal Confidentiality of Alcohol and Drug Abuse Patient Records regulations: The Federal rules restrict any use of the information to criminally investigate or prosecute any alcohol or drug abuse patient.[facility] CenterIn the event this information is protected by the Federal Confidentiality of Alcohol and Drug Abuse Patient Records regulations: The Federal rules restrict any use of the information to criminally investigate or prosecute any alcohol or drug abuse patient.[facility] CenterIn the event this information is protected by the Federal Confidentiality of Alcohol and Drug Abuse Patient Records regulations: The Federal rules restrict any use of the information to criminally investigate or prosecute any alcohol or drug abuse patient.[facility] CenterIn the event this information is protected by the Federal Confidentiality of Alcohol and Drug Abuse Patient Records regulations: The Federal rules restrict any use of the information to criminally investigate or prosecute any alcohol or drug abuse patient.[facility] CenterIn the event this information is protected by the Federal Confidentiality of Alcohol and Drug Abuse Patient Records regulations: The Federal rules restrict any use of the information to criminally investigate or prosecute any alcohol or drug abuse patient.[facility] CenterIn the event this information is protected by the Federal Confidentiality of Alcohol and Drug Abuse Patient Records regulations: The Federal rules restrict any use of the information to criminally investigate or prosecute any alcohol or drug abuse patient.[facility] CenterIn the event this information is protected by the Federal Confidentiality of Alcohol and Drug Abuse Patient Records regulations: The Federal rules restrict any use of the information to criminally investigate or prosecute any alcohol or drug abuse patient.[facility] CenterIn the event this information is protected by the Federal Confidentiality of Alcohol and Drug Abuse Patient Records regulations: The Federal rules restrict any use of the information to criminally investigate or prosecute any alcohol or drug abuse patient.[facility] CenterIn the event this information is protected by the Federal Confidentiality of Alcohol and Drug Abuse Patient Records regulations: The Federal rules restrict any use of the information to criminally investigate or prosecute any alcohol or drug abuse patient.[facility] CenterIn the event this information is protected by the Federal Confidentiality of Alcohol and Drug Abuse Patient Records regulations: The Federal rules restrict any use of the information to criminally investigate or prosecute any alcohol or drug abuse patient.[facility] CenterIn the event this information is protected by the Federal Confidentiality of Alcohol and Drug Abuse Patient Records regulations: The Federal rules restrict any use of the information to criminally investigate or prosecute any alcohol or drug abuse patient.[facility] CenterIn the event this information is protected by the Federal Confidentiality of Alcohol and Drug Abuse Patient Records regulations: The Federal rules restrict any use of the information to criminally investigate or prosecute any alcohol or drug abuse patient.[facility] CenterIn the event this information is protected by the Federal Confidentiality of Alcohol and Drug Abuse Patient Records regulations: The Federal rules restrict any use of the information to criminally investigate or prosecute any alcohol or drug abuse patient.[facility] CenterIn the event this information is protected by the Federal Confidentiality of Alcohol and Drug Abuse Patient Records regulations: The Federal rules restrict any use of the information to criminally investigate or prosecute any alcohol or drug abuse patient.[facility] CenterIn the event this information is protected by the Federal Confidentiality of Alcohol and Drug Abuse Patient Records regulations: The Federal rules restrict any use of the information to criminally investigate or prosecute any alcohol or drug abuse patient.[facility] CenterIn the event this information is protected by the Federal Confidentiality of Alcohol and Drug Abuse Patient Records regulations: The Federal rules restrict any use of the information to criminally investigate or prosecute any alcohol or drug abuse patient.[facility] CenterIn the event this information is protected by the Federal Confidentiality of Alcohol and Drug Abuse Patient Records regulations: The Federal rules restrict any use of the information to criminally investigate or prosecute any alcohol or drug abuse patient.[facility] CenterIn the event this information is protected by the Federal Confidentiality of Alcohol and Drug Abuse Patient Records regulations: The Federal rules restrict any use of the information to criminally investigate or prosecute any alcohol or drug abuse patient.[facility] CenterIn the event this information is protected by the Federal Confidentiality of Alcohol and Drug Abuse Patient Records regulations: The Federal rules restrict any use of the information to criminally investigate or prosecute any alcohol or drug abuse patient.[facility] CenterIn the event this information is protected by the Federal Confidentiality of Alcohol and Drug Abuse Patient Records regulations: The Federal rules restrict any use of the information to criminally investigate or prosecute any alcohol or drug abuse patient.[facility] the event this information is protected by the Federal Confidentiality of Alcohol and Drug Abuse Patient Records regulations: The Federal rules restrict any use of the information to criminally investigate or prosecute any alcohol or drug abuse patient.[facility] CenterIn the event this information is protected by the Federal Confidentiality of Alcohol and Drug Abuse Patient Records regulations: The Federal rules restrict any use of the information to criminally investigate or prosecute any alcohol or drug abuse patient.[facility] CenterIn the event this information is protected by [...] or prosecute any alcohol or drug abuse patient.[facility] CenterIn the event this information is protected by the Federal Confidentiality of Alcohol and Drug Abuse Patient Records regulations: The Federal rules restrict any use of the information to criminally investigate or prosecute any alcohol or drug abuse patient.[facility] CenterIn the event this information is protected by the Federal Confidentiality of Alcohol and Drug Abuse Patient Records regulations: The Federal rules restrict any use of the information to criminally investigate or prosecute any alcohol or drug abuse patient.[facility] CenterIn the event this information is protected by the Federal Confidentiality of Alcohol and Drug Abuse Patient Records regulations: The Federal rules restrict any use of the information to criminally investigate or prosecute any alcohol or drug abuse patient.[facility] CenterIn the event this information is protected by the Federal Confidentiality of Alcohol and Drug Abuse Patient Records regulations: The Federal rules restrict any use of the information to criminally investigate or prosecute any alcohol or drug abuse patient.[facility] CenterIn the event this information is protected by the Federal Confidentiality of Alcohol and Drug Abuse Patient Records regulations: The Federal rules restrict any use of the information to criminally investigate or prosecute any alcohol or drug abuse patient.[facility] CenterIn the event this information is protected by the Federal Confidentiality of Alcohol and Drug Abuse Patient Records regulations: The Federal rules restrict any use of the information to criminally investigate or prosecute any alcohol or drug abuse patient.[facility] CenterIn the event this information is protected by the Federal Confidentiality of Alcohol and Drug Abuse Patient Records regulations: The Federal rules restrict any use of the information to criminally investigate or prosecute any alcohol or drug abuse patient.[facility] CenterIn the event this information is protected by the Federal Confidentiality of Alcohol and Drug Abuse Patient Records regulations: The Federal rules restrict any use of the information to criminally investigate or prosecute any alcohol or drug abuse patient.[facility] CenterIn the event this information is protected by the Federal Confidentiality of Alcohol and Drug Abuse Patient Records regulations: The Federal rules restrict any use of the information to criminally investigate or prosecute any alcohol or drug abuse patient.[facility] CenterIn the event this information is protected by the Federal Confidentiality of Alcohol and Drug Abuse Patient Records regulations: The Federal rules restrict any use of the information to criminally investigate or prosecute any alcohol or drug abuse patient.[facility] CenterIn the event this information is protected by the Federal Confidentiality of Alcohol and Drug Abuse Patient Records regulations: The Federal rules restrict any use of the information to criminally investigate or prosecute any alcohol or drug abuse patient.[facility] CenterIn the event this information is protected by the Federal Confidentiality of Alcohol and Drug Abuse Patient Records regulations: The Federal rules restrict any use of the information to criminally investigate or prosecute any alcohol or drug abuse patient.[facility] CenterIn the event this information is protected by the Federal Confidentiality of Alcohol and Drug Abuse Patient Records regulations: The Federal rules restrict any use of the information to criminally investigate or prosecute any alcohol or drug abuse patient.[facility] CenterIn the event this information is protected by the Federal Confidentiality of Alcohol and Drug Abuse Patient Records regulations: The Federal rules restrict any use of the information to criminally investigate or prosecute any alcohol or drug abuse patient.[facility] CenterIn the event this information is protected by the Federal Confidentiality of Alcohol and Drug Abuse Patient Records regulations: The Federal rules restrict any use of the information to criminally investigate or prosecute any alcohol or drug abuse patient.[facility] CenterIn the event this information is protected by the Federal Confidentiality of Alcohol and Drug Abuse Patient Records regulations: The Federal rules restrict any use of the information to criminally investigate or prosecute any alcohol or drug abuse patient.[facility] CenterIn the event this information is protected by the Federal Confidentiality of Alcohol and Drug Abuse Patient Records regulations: The Federal rules restrict any use of the information to criminally investigate or prosecute any alcohol or drug abuse patient.[facility] CenterIn the event this information is protected by the Federal Confidentiality of Alcohol and Drug Abuse Patient Records regulations: The Federal rules restrict any use of the information to criminally investigate or prosecute any alcohol or drug abuse patient.[facility] CenterIn the event this information is protected by the Federal Confidentiality of Alcohol and Drug Abuse Patient Records regulations: The Federal rules restrict any use of the information to criminally investigate or prosecute any alcohol or drug abuse patient.[facility] CenterIn the event this information is protected by the Federal Confidentiality of Alcohol and Drug Abuse Patient Records regulations: The Federal rules restrict any use of the information to criminally investigate or prosecute any alcohol or drug abuse patient.[facility] CenterIn the event this information is protected by the Federal Confidentiality of Alcohol and Drug Abuse Patient Records regulations: The Federal rules restrict any use of the information to criminally investigate or prosecute any alcohol or drug abuse patient.[facility] CenterIn the event this information is protected by the Federal Confidentiality of Alcohol and Drug Abuse Patient Records regulations: The Federal rules restrict any use of the information to criminally investigate or prosecute any alcohol or drug abuse patient.[facility] CenterIn the event this information is protected by the Federal Confidentiality of Alcohol and Drug Abuse Patient Records regulations: The Federal rules restrict any use of the information to criminally investigate or prosecute any alcohol or drug abuse patient.[facility] CenterIn the event this information is protected by the Federal Confidentiality of Alcohol and Drug Abuse Patient Records regulations: The Federal rules restrict any use of the information to criminally investigate or prosecute any alcohol or drug abuse patient.[facility] CenterIn the event this information is protected by the Federal Confidentiality of Alcohol and Drug Abuse Patient Records regulations: The Federal rules restrict any use of the information to criminally investigate or prosecute any alcohol or drug abuse patient.[facility] CenterIn the event this information is protected by the Federal Confidentiality of Alcohol and Drug Abuse Patient Records regulations: The Federal rules restrict any use of the information to criminally investigate or prosecute any alcohol or drug abuse patient.[facility] CenterIn the event this information is protected by the Federal Confidentiality of Alcohol and Drug Abuse Patient Records regulations: The Federal rules restrict any use of the information to criminally investigate or prosecute any alcohol or drug abuse patient.[facility] CenterIn the event this information is protected by the Federal Confidentiality of Alcohol and Drug Abuse Patient Records regulations: The Federal rules restrict any use of the information to criminally investigate or prosecute any alcohol or drug abuse patient.[facility] CenterIn the event this information is protected by the Federal Confidentiality of Alcohol and Drug Abuse Patient Records regulations: The Federal rules restrict any use of the information to criminally investigate or prosecute any alcohol or drug abuse patient.[facility] CenterIn the event this information is protected by the Federal Confidentiality of Alcohol and Drug Abuse Patient Records regulations: The Federal rules restrict any use of the information to criminally investigate or prosecute any alcohol or drug abuse patient.[facility] CenterIn the event this information is protected by the Federal Confidentiality of Alcohol and Drug Abuse Patient Records regulations: The Federal rules restrict any use of the information to criminally investigate or prosecute any alcohol or drug abuse patient.[facility] CenterIn the event this information is protected by the Federal Confidentiality of Alcohol and Drug Abuse Patient Records regulations: The Federal rules restrict any use of the information to criminally investigate or prosecute any alcohol or drug abuse patient.[facility] CenterIn the event this information is protected by the Federal Confidentiality of Alcohol and Drug Abuse Patient Records regulations: The Federal rules restrict any use of the information to criminally investigate or prosecute any alcohol or drug abuse patient.[facility] CenterIn the event this information is protected by the Federal Confidentiality of Alcohol and Drug Abuse Patient Records regulations: The Federal rules restrict any use of the information to criminally investigate or prosecute any alcohol or drug abuse patient.[facility] CenterIn the event this information is protected by the Federal Confidentiality of Alcohol and Drug Abuse Patient Records regulations: The Federal rules restrict any use of the information to criminally investigate or prosecute any alcohol or drug abuse patient.[facility] CenterIn the event this information is protected by the Federal Confidentiality of Alcohol and Drug Abuse Patient Records regulations: The Federal rules restrict any use of the information to criminally investigate or prosecute any alcohol or drug abuse patient.[facility] CenterIn the event this information is protected by the Federal Confidentiality of Alcohol and Drug Abuse Patient Records regulations: The Federal rules restrict any use of the information to criminally investigate or prosecute any alcohol or drug abuse patient.[facility] CenterIn the event this information is protected by the Federal Confidentiality of Alcohol and Drug Abuse Patient Records regulations: The Federal rules restrict any use of the information to criminally investigate or prosecute any alcohol or drug abuse patient.[facility] CenterIn the event this information is protected by the Federal Confidentiality of Alcohol and Drug Abuse Patient Records regulations: The Federal rules restrict any use of the information to criminally investigate or prosecute any alcohol or drug abuse patient.[facility] CenterIn the event this information is protected by the Federal Confidentiality of Alcohol and Drug Abuse Patient Records regulations: The Federal rules restrict any use of the information to criminally investigate or prosecute any alcohol or drug abuse patient.[facility] CenterIn the event this information is protected by the Federal Confidentiality of Alcohol and Drug Abuse Patient Records regulations: The Federal rules restrict any use of the information to criminally investigate or prosecute any alcohol or drug abuse patient.[facility] CenterIn the event this information is protected by the Federal Confidentiality of Alcohol and Drug Abuse Patient Records regulations: The Federal rules restrict any use of the information to criminally investigate or prosecute any alcohol or drug abuse patient.[facility] CenterIn the event this information is protected by the Federal Confidentiality of Alcohol and Drug Abuse Patient Records regulations: The Federal rules restrict any use of the information to criminally investigate or prosecute any alcohol or drug abuse patient.[facility] CenterIn the event this information is protected by the Federal Confidentiality of Alcohol and Drug Abuse Patient Records regulations: The Federal rules restrict any use of the information to criminally investigate or prosecute any alcohol or drug abuse patient.[facility] CenterIn the event this information is protected by the Federal Confidentiality of Alcohol and Drug Abuse Patient Records regulations: The Federal rules restrict any use of the information to criminally investigate or prosecute any alcohol or drug abuse patient.[facility] CenterIn the event this information is protected by the Federal Confidentiality of Alcohol and Drug Abuse Patient Records regulations: The Federal rules restrict any use of the information to criminally investigate or prosecute any alcohol or drug abuse patient.[facility] the event this information is protected by the Federal Confidentiality of Alcohol and Drug Abuse Patient Records regulations: The Federal rules restrict any use of the information to criminally investigate or prosecute any alcohol or drug abuse patient.[facility] CenterIn the event this information is protected by the Federal Confidentiality of Alcohol and Drug Abuse Patient Records regulations: The Federal rules restrict any use of the information to criminally investigate or prosecute any alcohol or drug abuse patient.[facility] CenterIn the event this information is protected by [...] or prosecute any alcohol or drug abuse patient.[facility] CenterIn the event this information is protected by the Federal Confidentiality of Alcohol and Drug Abuse Patient Records regulations: The Federal rules restrict any use of the information to criminally investigate or prosecute any alcohol or drug abuse patient.[facility] CenterIn the event this information is protected by the Federal Confidentiality of Alcohol and Drug Abuse Patient Records regulations: The Federal rules restrict any use of the information to criminally investigate or prosecute any alcohol or drug abuse patient.[facility] CenterIn the event this information is protected by the Federal Confidentiality of Alcohol and Drug Abuse Patient Records regulations: The Federal rules restrict any use of the information to criminally investigate or prosecute any alcohol or drug abuse patient.[facility] CenterIn the event this information is protected by the Federal Confidentiality of Alcohol and Drug Abuse Patient Records regulations: The Federal rules restrict any use of the information to criminally investigate or prosecute any alcohol or drug abuse patient.[facility] CenterIn the event this information is protected by the Federal Confidentiality of Alcohol and Drug Abuse Patient Records regulations: The Federal rules restrict any use of the information to criminally investigate or prosecute any alcohol or drug abuse patient.[facility] CenterIn the event this information is protected by the Federal Confidentiality of Alcohol and Drug Abuse Patient Records regulations: The Federal rules restrict any use of the information to criminally investigate or prosecute any alcohol or drug abuse patient.[facility] CenterIn the event this information is protected by the Federal Confidentiality of Alcohol and Drug Abuse Patient Records regulations: The Federal rules restrict any use of the information to criminally investigate or prosecute any alcohol or drug abuse patient.[facility] CenterIn the event this information is protected by the Federal Confidentiality of Alcohol and Drug Abuse Patient Records regulations: The Federal rules restrict any use of the information to criminally investigate or prosecute any alcohol or drug abuse patient.[facility] CenterIn the event this information is protected by the Federal Confidentiality of Alcohol and Drug Abuse Patient Records regulations: The Federal rules restrict any use of the information to criminally investigate or prosecute any alcohol or drug abuse patient.[facility] CenterIn the event this information is protected by the Federal Confidentiality of Alcohol and Drug Abuse Patient Records regulations: The Federal rules restrict any use of the information to criminally investigate or prosecute any alcohol or drug abuse patient.[facility] CenterIn the event this information is protected by the Federal Confidentiality of Alcohol and Drug Abuse Patient Records regulations: The Federal rules restrict any use of the information to criminally investigate or prosecute any alcohol or drug abuse patient.[facility] CenterIn the event this information is protected by the Federal Confidentiality of Alcohol and Drug Abuse Patient Records regulations: The Federal rules restrict any use of the information to criminally investigate or prosecute any alcohol or drug abuse patient.[facility] CenterIn the event this information is protected by the Federal Confidentiality of Alcohol and Drug Abuse Patient Records regulations: The Federal rules restrict any use of the information to criminally investigate or prosecute any alcohol or drug abuse patient.[facility] CenterIn the event this information is protected by the Federal Confidentiality of Alcohol and Drug Abuse Patient Records regulations: The Federal rules restrict any use of the information to criminally investigate or prosecute any alcohol or drug abuse patient.[facility] CenterIn the event this information is protected by the Federal Confidentiality of Alcohol and Drug Abuse Patient Records regulations: The Federal rules restrict any use of the information to criminally investigate or prosecute any alcohol or drug abuse patient.[facility] CenterIn the event this information is protected by the Federal Confidentiality of Alcohol and Drug Abuse Patient Records regulations: The Federal rules restrict any use of the information to criminally investigate or prosecute any alcohol or drug abuse patient.[facility] CenterIn the event this information is protected by the Federal Confidentiality of Alcohol and Drug Abuse Patient Records regulations: The Federal rules restrict any use of the information to criminally investigate or prosecute any alcohol or drug abuse patient.[facility] CenterIn the event this information is protected by the Federal Confidentiality of Alcohol and Drug Abuse Patient Records regulations: The Federal rules restrict any use of the information to criminally investigate or prosecute any alcohol or drug abuse patient.[facility] CenterIn the event this information is protected by the Federal Confidentiality of Alcohol and Drug Abuse Patient Records regulations: The Federal rules restrict any use of the information to criminally investigate or prosecute any alcohol or drug abuse patient.[facility] CenterIn the event this information is protected by the Federal Confidentiality of Alcohol and Drug Abuse Patient Records regulations: The Federal rules restrict any use of the information to criminally investigate or prosecute any alcohol or drug abuse patient.[facility] CenterIn the event this information is protected by the Federal Confidentiality of Alcohol and Drug Abuse Patient Records regulations: The Federal rules restrict any use of the information to criminally investigate or prosecute any alcohol or drug abuse patient.[facility] CenterIn the event this information is protected by the Federal Confidentiality of Alcohol and Drug Abuse Patient Records regulations: The Federal rules restrict any use of the information to criminally investigate or prosecute any alcohol or drug abuse patient.[facility] CenterIn the event this information is protected by the Federal Confidentiality of Alcohol and Drug Abuse Patient Records regulations: The Federal rules restrict any use of the information to criminally investigate or prosecute any alcohol or drug abuse patient.[facility] CenterIn the event this information is protected by the Federal Confidentiality of Alcohol and Drug Abuse Patient Records regulations: The Federal rules restrict any use of the information to criminally investigate or prosecute any alcohol or drug abuse patient.[facility] CenterIn the event this information is protected by the Federal Confidentiality of Alcohol and Drug Abuse Patient Records regulations: The Federal rules restrict any use of the information to criminally investigate or prosecute any alcohol or drug abuse patient.[facility] CenterIn the event this information is protected by the Federal Confidentiality of Alcohol and Drug Abuse Patient Records regulations: The Federal rules restrict any use of the information to criminally investigate or prosecute any alcohol or drug abuse patient.[facility] CenterIn the event this information is protected by the Federal Confidentiality of Alcohol and Drug Abuse Patient Records regulations: The Federal rules restrict any use of the information to criminally investigate or prosecute any alcohol or drug abuse patient.[facility] CenterIn the event this information is protected by the Federal Confidentiality of Alcohol and Drug Abuse Patient Records regulations: The Federal rules restrict any use of the information to criminally investigate or prosecute any alcohol or drug abuse patient.[facility] CenterIn the event this information is protected by the Federal Confidentiality of Alcohol and Drug Abuse Patient Records regulations: The Federal rules restrict any use of the information to criminally investigate or prosecute any alcohol or drug abuse patient.[facility] CenterIn the event this information is protected by the Federal Confidentiality of Alcohol and Drug Abuse Patient Records regulations: The Federal rules restrict any use of the information to criminally investigate or prosecute any alcohol or drug abuse patient.[facility] CenterIn the event this information is protected by the Federal Confidentiality of Alcohol and Drug Abuse Patient Records regulations: The Federal rules restrict any use of the information to criminally investigate or prosecute any alcohol or drug abuse patient.[facility] CenterIn the event this information is protected by the Federal Confidentiality of Alcohol and Drug Abuse Patient Records regulations: The Federal rules restrict any use of the information to criminally investigate or prosecute any alcohol or drug abuse patient.[facility] CenterIn the event this information is protected by the Federal Confidentiality of Alcohol and Drug Abuse Patient Records regulations: The Federal rules restrict any use of the information to criminally investigate or prosecute any alcohol or drug abuse patient.[facility] CenterIn the event this information is protected by the Federal Confidentiality of Alcohol and Drug Abuse Patient Records regulations: The Federal rules restrict any use of the information to criminally investigate or prosecute any alcohol or drug abuse patient.[facility] CenterIn the event this information is protected by the Federal Confidentiality of Alcohol and Drug Abuse Patient Records regulations: The Federal rules restrict any use of the information to criminally investigate or prosecute any alcohol or drug abuse patient.[facility] CenterIn the event this information is protected by the Federal Confidentiality of Alcohol and Drug Abuse Patient Records regulations: The Federal rules restrict any use of the information to criminally investigate or prosecute any alcohol or drug abuse patient.[facility] CenterIn the event this information is protected by the Federal Confidentiality of Alcohol and Drug Abuse Patient Records regulations: The Federal rules restrict any use of the information to criminally investigate or prosecute any alcohol or drug abuse patient.[facility] CenterIn the event this information is protected by the Federal Confidentiality of Alcohol and Drug Abuse Patient Records regulations: The Federal rules restrict any use of the information to criminally investigate or prosecute any alcohol or drug abuse patient.[facility] CenterIn the event this information is protected by the Federal Confidentiality of Alcohol and Drug Abuse Patient Records regulations: The Federal rules restrict any use of the information to criminally investigate or prosecute any alcohol or drug abuse patient.[facility] CenterIn the event this information is protected by the Federal Confidentiality of Alcohol and Drug Abuse Patient Records regulations: The Federal rules restrict any use of the information to criminally investigate or prosecute any alcohol or drug abuse patient.[facility] CenterIn the event this information is protected by the Federal Confidentiality of Alcohol and Drug Abuse Patient Records regulations: The Federal rules restrict any use of the information to criminally investigate or prosecute any alcohol or drug abuse patient.[facility] CenterIn the event this information is protected by the Federal Confidentiality of Alcohol and Drug Abuse Patient Records regulations: The Federal rules restrict any use of the information to criminally investigate or prosecute any alcohol or drug abuse patient.[facility] CenterIn the event this information is protected by the Federal Confidentiality of Alcohol and Drug Abuse Patient Records regulations: The Federal rules restrict any use of the information to criminally investigate or prosecute any alcohol or drug abuse patient.[facility] CenterIn the event this information is protected by the Federal Confidentiality of Alcohol and Drug Abuse Patient Records regulations: The Federal rules restrict any use of the information to criminally investigate or prosecute any alcohol or drug abuse patient.[facility] CenterIn the event this information is protected by the Federal Confidentiality of Alcohol and Drug Abuse Patient Records regulations: The Federal rules restrict any use of the information to criminally investigate or prosecute any alcohol or drug abuse patient.[facility] CenterIn the event this information is protected by the Federal Confidentiality of Alcohol and Drug Abuse Patient Records regulations: The Federal rules restrict any use of the information to criminally investigate or prosecute any alcohol or drug abuse patient.[facility] the event this information is protected by the Federal Confidentiality of Alcohol and Drug Abuse Patient Records regulations: The Federal rules restrict any use of the information to criminally investigate or prosecute any alcohol or drug abuse patient.[facility] CenterIn the event this information is protected by the Federal Confidentiality of Alcohol and Drug Abuse Patient Records regulations: The Federal rules restrict any use of the information to criminally investigate or prosecute any alcohol or drug abuse patient.[facility] CenterIn the event this information is protected by [...] or prosecute any alcohol or drug abuse patient.[facility] CenterIn the event this information is protected by the Federal Confidentiality of Alcohol and Drug Abuse Patient Records regulations: The Federal rules restrict any use of the information to criminally investigate or prosecute any alcohol or drug abuse patient.[facility] CenterIn the event this information is protected by the Federal Confidentiality of Alcohol and Drug Abuse Patient Records regulations: The Federal rules restrict any use of the information to criminally investigate or prosecute any alcohol or drug abuse patient.[facility] CenterIn the event this information is protected by the Federal Confidentiality of Alcohol and Drug Abuse Patient Records regulations: The Federal rules restrict any use of the information to criminally investigate or prosecute any alcohol or drug abuse patient.[facility] CenterIn the event this information is protected by the Federal Confidentiality of Alcohol and Drug Abuse Patient Records regulations: The Federal rules restrict any use of the information to criminally investigate or prosecute any alcohol or drug abuse patient.[facility] CenterIn the event this information is protected by the Federal Confidentiality of Alcohol and Drug Abuse Patient Records regulations: The Federal rules restrict any use of the information to criminally investigate or prosecute any alcohol or drug abuse patient.[facility] CenterIn the event this information is protected by the Federal Confidentiality of Alcohol and Drug Abuse Patient Records regulations: The Federal rules restrict any use of the information to criminally investigate or prosecute any alcohol or drug abuse patient.[facility] CenterIn the event this information is protected by the Federal Confidentiality of Alcohol and Drug Abuse Patient Records regulations: The Federal rules restrict any use of the information to criminally investigate or prosecute any alcohol or drug abuse patient.[facility] CenterIn the event this information is protected by the Federal Confidentiality of Alcohol and Drug Abuse Patient Records regulations: The Federal rules restrict any use of the information to criminally investigate or prosecute any alcohol or drug abuse patient.[facility] CenterIn the event this information is protected by the Federal Confidentiality of Alcohol and Drug Abuse Patient Records regulations: The Federal rules restrict any use of the information to criminally investigate or prosecute any alcohol or drug abuse patient.[facility] CenterIn the event this information is protected by the Federal Confidentiality of Alcohol and Drug Abuse Patient Records regulations: The Federal rules restrict any use of the information to criminally investigate or prosecute any alcohol or drug abuse patient.[facility] Reason for Visit (unrecogniz ed section and content) Reason Onset Date Comments Refill Request 02/10/2022 Reason Comments Established Patient SCP Reason Comments [...] CT Specialty Diagnoses / [facility] CT IM[facility] Diagnoses Abnormal CT of the abdomen Liver 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 Procedures CT ABD/PEL W IVCON CT ABD & PELVIS W/CONTRAST Chad Mariee, 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 [address] [place] [address] [place] [address] Referral ID Status Reason Start Date Expiration Date V isits Requested Visits Authorized [id number] Closed Auto-Generate d Referral 11/25/2022 12/25/2022 2 2 Reason Comments Radiology US Specialty Diagnoses / Procedures [facility] US IM[facility] Diagnoses Epigastric pain Procedures US ABD RT UPPER QUADRANT US ABDOMINAL REAL TIME W/IMAGE LIMITED Clifton Hung MD [address] [place] [address] [place] [address] Referral ID Status Reason Start Date Expiration Date V isits Requested Visits Authorized [id number] Closed Auto-Generate d Referral 09/03/2022 10/03/2023 1 1 Specialty Diagnoses / Procedures [facility] Contact [facility]ING Diagnoses Breast neoplasm, Tis (DCIS), left Nausea Pain of upper abdomen Procedures CT CHEST W IVCON DIAGNOSTIC COMPUTED TOMOGRAPHY THORAX W/CONTRAST 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, 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 [address] [place] [address] [place] [address] Referral ID Status Reason Start Date Expiration Date V isits Requested Visits Authorized [id number] Closed Auto-Generate d Referral 09/15/2022 10/15/2022 2 2 Reason Comments Outside Ophtalmology Reason Comments Outside [id number] Ordered Reason Comments ER Discharge Summary Reason Comments Follow Up Blood pressure Reason Comments High Blood Sugar Orders Reason Comments vaginal issues Reason Comments Refill Request Reason Onset Date Comments Refill Request 02/14/2024 Reason Onset Date Comments Refill Request 02/29/2024 Reason Comments Established Patient Reason Comments New Medication Reason Comments Cough Reason Comments Medication Problem Reason Comments Patient Update Reason Comments Results Reason Comments Consult Patient states that she was referred for urinary frequency. She states that she gets up 2-3 times at night to urinate and denies any pain/ burning with urination. She does have some pressure in the bladder that comes and goes. She will have some leakage everyday and urgency occasionally. Specialty Diagnoses / Procedures Referred By Jared hernández Referred To Contact Urology Diagnoses Urinary frequency Procedures CONSULT TO UROLOGY OFFICE/OUTPATIENT NEW HIGH MDM 60 MINUTES Francine Madrid APRN.[facility] [address] [place] [address] Referral ID Status Reason Start Date Expiration Date V isits Requested Visits Authorized [id number] Closed PCP Requested Referral 04/20/2024 04/20/2025 1 1 Reason Comments Consult Cardiology Reason Comments Burn left foot x 1 week, baking Reason Comments Follow Up No new complaints to day. Denies urinary pain. Pt states she does feel like she has period cramps. Pt states she does have a history of constipation Reason Comments Results Outside lab results Reason Comments Results Outside results Reason Comments Outside Imaging Reason Comments Follow Up Patient is here for 6 week f/u. Patient has no new concerns. Patient is scheduled to see an Printmaker on 07/11/24. Reason Comments Adrenal Adenoma of right adr enal gland Specialty Diagnoses / Procedures Referred By Jared hernández Referred To Contact Endocrinology Diagnoses Adenoma of right adrenal gland Procedures CONSULT TO ENDOCRINOLOGY OFFICE/OUTPATIENT NEW HIGH MDM 60 MINUTES Ori Lord DO [address] [place] [address] Referral ID Status Reason Start Date Expiration Date V isits Requested Visits Authorized [id number] Closed PCP Requested Referral 05/23/2024 05/23/2025 1 1 Reason Onset Date Comments Refill Request 07/17/2024 Reason Onset Date Comments Refill Request 08/02/2024 Reason Comments Follow Up 1 month cystoscopy. Specialty Diagnoses / Procedures Referred By [facility] t Referred To Contact CT IMAGING Diagnoses 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) Procedures CT ADRENAL WO/W IVCON CT ABDOMEN W & W/O CONTRAST Alexa Matute MD [address] [place] [address] [place] [address] Referral ID Status Reason Start Date Expiration Date V isits Requested Visits Authorized [id number] Closed Auto-Generate d Referral 08/15/2024 10/14/2024 1 1 Reason Comments Consult Outside Ophthalmolog y Reason Comments Lab Orders Reason Comments F/U 6 months Reason Comments Adrenal Labs 09/2024 Reason Onset Date Comments Refill Request 12/14/2024 Reason Comments Head Congestion Cough Reason Onset Date Comments Results 01/01/2025 Reason Onset Date Comments Allied Health Visit 01/30/2025 Reason Comments Adrenal Reason Comments Follow Up 6 mo f/u. Patient galvan s no new complaints and denies any urinary issues. Reason Onset Date Comments Population Health Navigation Outreach 03/13/2025 [employer] [place] Reason Comments Adrenal Reason Onset Date Comments Pharyngitis 04/04/2025 Reason Comments Well Woman Reason Onset Date Comments Population Health Navigation Outreach 04/12/2025 [employer] [place] Reason Comments UTI X3 days Reason Onset Date Comments Allied Health Visit 05/14/2025 Medication A dherence Outreach Reason Onset Date Comments Allied Health Visit 05/17/2025 Medication A dherence Outreach Care Teams (unrecognized sec tion and content) Inventory Administrator Relationship Specialty Start Date End Date Clifton Hung MD [address] [place], [place] [id number] PCP - General Family Practice 01/16/16 Renata Barnhart MD, [address] [place], [place] [id number] Physician Radiation Oncology 04/25/21 Inventory Administrator Relationship Specialty Start Date End Date Clifton Hung MD [address] [facility] [address] PCP - General Family Practice 01/16/16 Renata Barnhart MD, [address] [facility] [place] [address] Physician Radiation Oncology 04/25/21 Inventory Administrator Relationship Specialty Start Date End Date Clifton Hung MD [address] [facility] [address] PCP - General Family Practice 01/16/16 Renata Barnhart MD, MD [address] [place] [address] Physician Radiation Oncology 04/25/21 Inventory Administrator Relationship Specialty Start Date End Date Clifton Hung MD [address] [facility] [address] PCP - General Family Practice 01/16/16 Renata Barnhart MD, MD [address] [place] [address] Physician Radiation Oncology 04/25/21 Inventory Administrator Relationship Specialty Start Date End Date Clifton Hung MD [address] [facility] [place] [address] PCP - General Family Practice 01/16/16 Renata Barnhart MD, [address] [place] [address] Physician Radiation Oncology 04/25/21 Inventory Administrator Relationship Specialty Start Date End Date Clifton Hung MD [address] [facility] [address] PCP - General Family Practice 01/16/16 Renata Barnhart MD, [address] [place] [address] Physician Radiation Oncology 04/25/21 Inventory Administrator Relationship Specialty Start Date End Date Clifton Hung MD [address] [facility] [address] PCP - General Family Practice 01/16/16 Renata Barnhart MD, [address] [place] [address] Physician Radiation Oncology 04/25/21 Inventory Administrator Relationship Specialty Start Date End Date Clifton Hung MD [address] [facility] [place] [address] PCP - General Family Practice 01/16/16 Renata Barnhart MD, [address] [place] [address] Physician Radiation Oncology 04/25/21 Inventory Administrator Relationship Specialty Start Date End Date Clifton Hung MD [address] [facility] [place] [address] PCP - General Family Practice 01/16/16 Renata Barnhart MD, [address] [place] [address] Physician Radiation Oncology 04/25/21 Inventory Administrator Relationship Specialty Start Date End Date Clifton Hung MD [address] [facility] [address] PCP - General Family Practice 01/16/16 Renata Barnhart MD, [address] [place] [address] Physician Radiation Oncology 04/25/21 Inventory Administrator Relationship Specialty Start Date End Date Clifton Hung MD [address] [place] [address] PCP - General Family Medicine 01/16/16 Renata Barnhart MD, [address] [facility] [place] [address] Physician Radiation Oncology 04/25/21 Inventory Administrator Relationship Specialty Start Date End Date Clifton Hung MD [address] [facility] [address] PCP - General Family Medicine 01/16/16 Renata Barnhart MD, [address] [facility] [place] [address] Physician Radiation Oncology 04/25/21 Inventory Administrator Relationship Specialty Start Date End Date Clifton Hung MD [address] [facility] [address] PCP - General Family Medicine 01/16/16 Renata Barnhart MD, [address] [facility] [place] [address] Physician Radiation Oncology 04/25/21 Inventory Administrator Relationship Specialty Start Date End Date Clifton Hung MD [address] [facility] [address] PCP - General Family Medicine 01/16/16 Renata Barnhart MD, [address] [facility] [place] [address] Physician Radiation Oncology 04/25/21 Inventory Administrator Relationship Specialty Start Date End Date Clifton Hung MD [address] [facility] [address] PCP - General Family Medicine 01/16/16 Renata Barnhart MD, [address] [facility] [place] [address] Physician Radiation Oncology 04/25/21 Inventory Administrator Relationship Specialty Start Date End Date Clifton Hung MD [address] [facility] [address] PCP - General Family Medicine 01/16/16 Renata Barnhart MD, [address] [facility] [place] [address] Physician Radiation Oncology 04/25/21 Inventory Administrator Relationship Specialty Start Date End Date Clifton Hnug MD [address] [facility] [address] PCP - General Family Medicine 01/16/16 Renata Barnhart MD, [address] [facility] [place] [address] Physician Radiation Oncology 04/25/21 Inventory Administrator Relationship Specialty Start Date End Date Clifton Hung MD [address] [facility] [address] PCP - General Family Medicine 01/16/16 Renata Barnhart MD, [address] [facility] [place] [address] Physician Radiation Oncology 04/25/21 Inventory Administrator Relationship Specialty Start Date End Date Clifton Hung MD [address] [facility] [address] PCP - General Family Medicine 01/16/16 Renata Barnhart MD, [address] [facility] [place] [address] Physician Radiation Oncology 04/25/21 Inventory Administrator Relationship Specialty Start Date End Date Clifton Hung MD [address] [facility] [place] [address] PCP - General Family Medicine 01/16/16 Renata Barnhart MD, [address] [place] [address] Physician Radiation Oncology 04/25/21 Inventory Administrator Relationship Specialty Start Date End Date Clifton Hung MD [address] [place] [address] PCP - General Family Medicine 01/16/16 Renata Barnhart MD, [address] [place] [address] Physician Radiation Oncology 04/25/21 Inventory Administrator Relationship Specialty Start Date End Date Clifton Hung MD [address] [facility] [address] PCP - General Family Medicine 01/16/16 Renata Barnhart MD, [address] [place] [address] Physician Radiation Oncology 04/25/21 Inventory Administrator Relationship Specialty Start Date End Date Clifton Hung MD [address] [facility] [address] PCP - General Family Medicine 01/16/16 Renata Barnhart MD, [address] [place] [address] Physician Radiation Oncology 04/25/21 Inventory Administrator Relationship Specialty Start Date End Date Clifton Hung MD [address] [facility] [address] PCP - General Family Medicine 01/16/16 Renata Barnhart MD, [address] [place] [address] Physician Radiation Oncology 04/25/21 Inventory Administrator Relationship Specialty Start Date End Date Clifton Hung MD [address] [facility] [place] [address] PCP - General Family Medicine 01/16/16 Renata Barnhart MD, [address] [place] [address] Physician Radiation Oncology 04/25/21 Inventory Administrator Relationship Specialty Start Date End Date Clifton Hung MD [address] [facility] [place] [address] PCP - General Family Medicine 01/16/16 Renata Barnhart MD, [address] [place], [place] [address] Physician Radiation Oncology 04/25/21 Team Status: Active Member Role Status Dates Dr. Clifton Hung MD Family Provider Active Dr. Clifton Hung MD Primary Care Provider Active Team Status: Inactive Member Role Status Dates Dr. Clifton Hung MD Primary Care Provider, Referri ng Provider Active Octaviano Humphries STRAP SEWER, STRAP SEWER-C Attending Provider Active Team Status: Inactive Member Role Status Dates Dr. Clifton Hung MD Primary Care Provider, Referri ng Provider Active Karin Coles STRAP SEWER, STRAP SEWER-C Attending Provider Active Team Status: Inactive Member Role Status Dates Dr. Clifton Hung MD Primary Care Provider Active Karin Coles STRAP SEWER, STRAP SEWER-C Attending Provider, Referrin g Provider Active Team Status: Active Member Role Status Dates Dr. Clifton Hung MD Primary Care Provider Active Karin Coles STRAP SEWER, STRAP SEWER-C Attending Provider, Referrin g Provider Active Team Status: Active Member Role Status Dates Dr. Clifton Hung MD Primary Care Provider, Referri ng Provider Active Dr. Carson Alcantar DO Attending Provider, Other Prov ider Active Team Status: Inactive Member Role Status Dates Dr. Clifton Hung MD Primary Care Provider, Referri ng Provider Active Dr. Carson Alcantar DO Attending Provider Active Inventory Administrator Relationship Specialty Start Date End Date Clifton Hung MD [address] [facility] [place] [address] PCP - General Family Medicine 01/16/16 Renata Barnhart MD, [address] [place] [address] Physician Radiation Oncology 04/25/21 Team Status: Inactive Member Role Status Dates Dr. Clifton Hung MD Primary Care Provider Active Dr. Carson Alcantar DO Attending Provider Active Inventory Administrator Relationship Specialty Start Date End Date Clifton Hung MD [address] [facility] [place] [address] PCP - General Family Medicine 01/16/16 Renata Barnhart MD, [address] [place] [address] Physician Radiation Oncology 04/25/21 Inventory Administrator Relationship Specialty Start Date End Date Clifton Hung MD [address] [facility] [place] [address] PCP - General Family Medicine 01/16/16 Renata Barnhart MD, [address] [place] [address] Physician Radiation Oncology 04/25/21 Inventory Administrator Relationship Specialty Start Date End Date Clifton Hung MD [address] [facility] [place] [address] PCP - General Family Medicine 01/16/16 Renata Barnhart MD, [address] [place] [address] Physician Radiation Oncology 04/25/21 Team Status: Inactive Member Role Status Dates Dr. Clifton Hung MD Primary Care Provider Active Dr. Carson Alcantar DO Attending Provider, Referring Provider Active Inventory Administrator Relationship Specialty Start Date End Date Clifton Hung MD [address] [place] [address] PCP - General Family Medicine 01/16/16 Renata Barnhart MD, MD [address] [place] [address] Physician Radiation Oncology 04/25/21 Inventory Administrator Relationship Specialty Start Date End Date Clifton Hung MD [address] [place] [address] PCP - General Family Medicine 01/16/16 Renata Barnhart MD, [address] [place] [address] Physician Radiation Oncology 04/25/21 Inventory Administrator Relationship Specialty Start Date End Date Clifton Hung MD [address] [place] [address] PCP - General Family Medicine 01/16/16 Renata Barnhart MD, [address] [place] [address] Physician Radiation Oncology 04/25/21 Inventory Administrator Relationship Specialty Start Date End Date Clifton Hung MD [address] [place] [address] PCP - General Family Medicine 01/16/16 Renata Barnhart MD, [address] [place] [address] Physician Radiation Oncology 04/25/21 Inventory Administrator Relationship Specialty Start Date End Date Clifton Hung MD [address] [place] [address] PCP - General Family Medicine 01/16/16 Renata Barnhart MD, [address] [place] [address] Physician Radiation Oncology 04/25/21 Inventory Administrator Relationship Specialty Start Date End Date Clifton Hung MD [address] [place] [address] PCP - General Family Medicine 01/16/16 Renata Barnhart MD, [address] [place] [address] Physician Radiation Oncology 04/25/21 Inventory Administrator Relationship Specialty Start Date End Date Clifton Hung MD [address] [place] [address] PCP - General Family Medicine 01/16/16 Renata Barnhart MD, [address] [place] [address] Physician Radiation Oncology 04/25/21 Inventory Administrator Relationship Specialty Start Date End Date Clifton Hung MD [address] [place] [address] PCP - General Family Medicine 01/16/16 Renata Barnhart MD, [address] [place] [address] Physician Radiation Oncology 04/25/21 Inventory Administrator Relationship Specialty Start Date End Date Clifton Hung MD [address] [facility] [place] [address] PCP - General Family Medicine 01/16/16 Renata Barnhart MD, MD [address] [place] [address] Physician Radiation Oncology 04/25/21 Inventory Administrator Relationship Specialty Start Date End Date Clifton Hung MD [address] [place] [address] PCP - General Family Medicine 01/16/16 Renata Barnhart MD, [address] [place], [place] [address] Physician Radiation Oncology 04/25/21 Team Status: Active Member Role Status Dates Dr. Clifton Hung MD Primary Care Provider Active Octaviano Humphries STRAP SEWER, STRAP SEWER-C Referring Provider, Other Provide r Active Dr. Karsten Zarate MD Attending Provider Active Team Status: Inactive Member Role Status Dates Dr. Clifton Hung MD Primary Care Provider Active Octaviano Humphries STRAP SEWER, STRAP SEWER-C Attending Provider, Referring Pro vider Active Team Status: Inactive Member Role Status Dates Dr. Clifton Hung MD Primary Care Provider Active Dr. Rafita Fraser DO Attending Provider, Emergency Pro vider Active Team Status: Active Member Role Status Dates Dr. Clifton Hung MD Primary Care Provider Active Octaviano Humphries STRAP SEWER, STRAP SEWER-C Attending Provider, Referring Pro vider Active Inventory Administrator Relationship Specialty Start Date End Date Clifton Hung MD [address] [place] [address] PCP - General Family Medicine 01/16/16 Renata Barnhart MD, [address] [place] [address] Physician Radiation Oncology 04/25/21 Team Status: Active Member Role Status Dates Dr. Clifton Hung MD Primary Care Provider Active Octaviano Humphries STRAP SEWER, STRAP SEWER-C Attending Provider Active Team Status: Active Member Role Status Dates Dr. Clifton Hung MD Primary Care Provider Active Dr. Karsten Zarate MD Attending Provider Active Octaviano Humphries STRAP SEWER, STRAP SEWER-C Referring Provider Active Team Status: Inactive Member Role Status Dates Dr. Clifton Hung MD Primary Care Provider Active Dr. Caro Pedro MD Emergency Provider Active Inventory Administrator Relationship Specialty Start Date End Date Clifton Hung MD [address] [facility] [place] [address] PCP - General Family Medicine 01/16/16 Renata Barnhart MD [address] [facility] [place] [address] Physician Radiation Oncology 04/25/21 Team Status: Inactive Member Role Status Dates Dr. Clifton Hung MD Primary Care Provider Active Dr. Caro Pedro MD Attending Provider, Emergency Provider Active Team Status: Inactive Member Role Status Dates Dr. Clifton Hung MD Primary Care Provider Active Dr. iVctor M Hernandez DO Emergency Provider Active Inventory Administrator Relationship Specialty Start Date End Date Clifton Hung MD [address] [facility] [place] [address] PCP - General Family Medicine 01/16/16 Renata Barnhart MD [address] [place] [address] Physician Radiation Oncology 04/25/21 Inventory Administrator Relationship Specialty Start Date End Date Clifton Hung MD [address] [place] [address] PCP - General Family Medicine 01/16/16 Renata Barnhart MD [address] [place] [address] Physician Radiation Oncology 04/25/21 Team Status: Inactive Member Role Status Dates Dr. Clifton Hung MD Primary Care Provider Active Dr. Victor M Hernandez DO Attending Provider, Emergency Pr ovider Active Inventory Administrator Relationship Specialty Start Date End Date Clifton Hung MD [address] [facility] [address] PCP - General Family Medicine 01/16/16 Renata Barnhart MD [address] [facility] [place] [address] Physician Radiation Oncology 04/25/21 Inventory Administrator Relationship Specialty Start Date End Date Clifton Hung MD [address] [facility] [address] PCP - General Family Medicine 01/16/16 Renata Barnhart MD [address] [facility] [place] [address] Physician Radiation Oncology 04/25/21 Inventory Administrator Relationship Specialty Start Date End Date Clifton Hung MD [address] [facility] [place] [address] PCP - General Family Medicine 01/16/16 Renata Barnhart MD [address] [facility] [place] [address] Physician Radiation Oncology 04/25/21 Inventory Administrator Relationship Specialty Start Date End Date Clifton Hung MD [address] [facility] [place] [address] PCP - General Family Medicine 01/16/16 Renata Barnhart MD [address] [place] [address] Physician Radiation Oncology 04/25/21 Inventory Administrator Relationship Specialty Start Date End Date Clifton Hung MD [address] [place] [address] PCP - General Family Medicine 01/16/16 Renata Barnhart MD [address] [place] [address] Physician Radiation Oncology 04/25/21 Inventory Administrator Relationship Specialty Start Date End Date Clifton Hung MD [address] [place] [address] PCP - General Family Medicine 01/16/16 Renata Barnhart MD [address] [place] [address] Physician Radiation Oncology 04/25/21 Inventory Administrator Relationship Specialty Start Date End Date Clifton Hung MD [address] [place] [address] PCP - General Family Medicine 01/16/16 Renata Barnhart MD [address] [place] [address] Physician Radiation Oncology 04/25/21 Inventory Administrator Relationship Specialty Start Date End Date Clifton Hung MD [address] [place] [address] PCP - General Family Medicine 01/16/16 Renata Barnhart MD [address] [place] [address] Physician Radiation Oncology 04/25/21 Inventory Administrator Relationship Specialty Start Date End Date Clifton Hung MD [address] [place] [address] PCP - General Family Medicine 01/16/16 Renata Barnhart MD [address] [place] [address] Physician Radiation Oncology 04/25/21 Inventory Administrator Relationship Specialty Start Date End Date Clifton Hung MD [address] [place] [address] PCP - General Family Medicine 01/16/16 Renata Barnhart MD [address] [place] [address] Physician Radiation Oncology 04/25/21 Inventory Administrator Relationship Specialty Start Date End Date Clifton Hung MD [address] [place] [address] PCP - General Family Medicine 01/16/16 Renata Barnhart MD [address] [place] [address] Physician Radiation Oncology 04/25/21 Inventory Administrator Relationship Specialty Start Date End Date Clifton Hung MD [address] [place] [address] PCP - General Family Medicine 01/16/16 Renata Barnhart MD [address] [place] [address] Physician Radiation Oncology 04/25/21 Inventory Administrator Relationship Specialty Start Date End Date Clifton Hung MD [address] [facility] [place] [address] PCP - General Family Medicine 01/16/16 Renata Barnhart MD [address] [place] [address] Physician Radiation Oncology 04/25/21 Inventory Administrator Relationship Specialty Start Date End Date Clifton Hung MD [address] [facility] [place] [address] PCP - General Family Medicine 01/16/16 Renata Barnhart MD [address] [facility] [place] [address] Physician Radiation Oncology 04/25/21 Inventory Administrator Relationship Specialty Start Date End Date Clifton Hung MD [address] [facility] [place] [address] PCP - General Family Medicine 01/16/16 Renata Barnhart MD [address] [place] [address] Physician Radiation Oncology 04/25/21 Inventory Administrator Relationship Specialty Start Date End Date Clifton Hung MD [address] [place] [address] PCP - General Family Medicine 01/16/16 Renata Barnhart MD [address] [address] Physician Radiation Oncology 04/25/21 Inventory Administrator Relationship Specialty Start Date End Date Clifton Hung MD [address] [facility] [address] PCP - General Family Medicine 01/16/16 Renata Barnhart MD [address] [place] [address] Physician Radiation Oncology 04/25/21 Inventory Administrator Relationship Specialty Start Date End Date Clifton Hung MD [address] [facility] [place] [address] PCP - General Family Medicine 01/16/16 Renata Barnhart MD [address] [place] [address] Physician Radiation Oncology 04/25/21 Inventory Administrator Relationship Specialty Start Date End Date Clifton Hung MD [address] [facility] [address] PCP - General Family Medicine 01/16/16 Renata Barnhart MD [address] [place] [address] Physician Radiation Oncology 04/25/21 Inventory Administrator Relationship Specialty Start Date End Date Clifton Hung MD [address] [facility] [place] [address] PCP - General Family Medicine 01/16/16 Renata Barnhart MD [address] [place] [address] Physician Radiation Oncology 04/25/21 Inventory Administrator Relationship Specialty Start Date End Date Clifton Hung MD [address] [facility] [place] [address] PCP - General Family Medicine 01/16/16 Renata Barnhart MD [address] [place] [address] Physician Radiation Oncology 04/25/21 Inventory Administrator Relationship Specialty Start Date End Date Clifton Hung MD [address] [facility] [place] [address] PCP - General Family Medicine 01/16/16 Renata Barnhart MD [address] [place] [address] Physician Radiation Oncology 04/25/21 Inventory Administrator Relationship Specialty Start Date End Date Clifton Hung MD [address] [facility] [place] [address] PCP - General Family Medicine 01/16/16 Renata Barnhart MD [address] [place] [address] Physician Radiation Oncology 04/25/21 Inventory Administrator Relationship Specialty Start Date End Date Clifton Hung MD [address] [place] [address] PCP - General Family Medicine 01/16/16 Renata Barnhart MD [address] [place] [address] Physician Radiation Oncology 04/25/21 Inventory Administrator Relationship Specialty Start Date End Date Clifton Hung MD [address] [facility] [place] [address] PCP - General Family Medicine 01/16/16 Renata Barnhart MD [address] [place] [address] Physician Radiation Oncology 04/25/21 Francine Madrid APRN.[employer] [address] [place] [address] [employer] [facility] 10/14/24 Cherise Sifuentes PA-C [address] [place] [address] [facility] 10/14/24 Inventory Administrator Relationship Specialty Start Date End Date Clifton Hung MD [address] [place] [address] PCP - General Family Medicine 01/16/16 Renata Barnhart MD [address] [place] [address] Physician Radiation Oncology 04/25/21 Francine Madrid APRN.[employer] [address] [place] [address] [facility] 10/14/24 Cherise Sifuentes PA-C [address] [facility] [place] [address] [facility] 10/14/24 Inventory Administrator Relationship Specialty Start Date End Date Clifton Hung MD [address] [place] [address] PCP - General Family Medicine 01/16/16 Renata Barnhart MD [address] [facility] [place] [place] [address] Physician Radiation Oncology 04/25/21 Francine Madrid APRN.[employer] [address] [place] [address] [facility] 10/14/24 Cherise Sifuentes PA-C [address] [place] [address] [facility] 10/14/24 Inventory Administrator Relationship Specialty Start Date End Date Clifton Hung MD [address] [place] [address] PCP - General Family Medicine 01/16/16 Renata Barnhart MD [address] [place] [address] Physician Radiation Oncology 04/25/21 Francine Madrid APRN.[employer] [address] [place] [address] Art [facility] Family [facility] 10/14/24 Cherise Sifuentes PA-C [address] [place] [address] Art Teacher Family [facility] 10/14/24 Inventory Administrator Relationship Specialty Start Date End Date Clifton Hung MD [address] [place] [address] PCP - General Family Medicine 01/16/16 Renata Barnhart MD [address] [place] [address] Physician Radiation Oncology 04/25/21 Francine Madrid APRN.[employer] [address] [facility] [place] [address] [facility] 10/14/24 Cherise Sifuentes PA-C [address] [facility] [place] [address] [facility] 10/14/24 Inventory Administrator Relationship Specialty Start Date End Date Clifton Hung MD [address] [facility] [place] [address] PCP - General Family Medicine 01/16/16 Renata Barnhart MD [address] [place] [address] Physician Radiation Oncology 04/25/21 Francine Madrid APRN.[employer] [address] [place] [address] [facility] 10/14/24 Cherise Sifuentes PA-C [address] [facility] [place] [address] [facility] 10/14/24 Inventory Administrator Relationship Specialty Start Date End Date Clifton Hung MD [address] [facility] [place] [address] PCP - General Family Medicine 01/16/16 Renata Barnhart MD [address] [facility] [place] [address] Physician Radiation Oncology 04/25/21 Francine Madrid APRN.[employer] [address] [place] [address] Art Teacher Family [facility] 10/14/24 Cherise Sifuentes PA-C [address] [place] [address] Art Teacher [facility] 10/14/24 Inventory Administrator Relationship Specialty Start Date End Date Clifton Hung MD [address] [place] [address] PCP - General Family Medicine 01/16/16 Renata Barnhart MD [address] [address] Physician Radiation Oncology 04/25/21 Francine Madrid, TERRA.REPA[employer] [address] [place] [address] Art Teacher [facility] 10/14/24 Cherise Sifuentes PA-C [address] [place] [address] [facility] 10/14/24 Inventory Administrator Relationship Specialty Start Date End Date Clifton Hung MD [address] [place] [address] PCP - General Family Medicine 01/16/16 Renata Barnhart MD [address] [place] [address] Physician Radiation Oncology 04/25/21 Francine Madrid, TERRA.[employer] [address] [place] [address] Art Teacher Family [facility] 10/14/24 Cherise Sifuentes PA-C [address] [facility] [place] [address] [facility] 10/14/24 Inventory Administrator Relationship Specialty Start Date End Date Clifton Hung MD [address] [place] [address] PCP - General Family Medicine 01/16/16 Renata Barnhart MD [address] [place] [address] Physician Radiation Oncology 04/25/21 Francine Madrid APRN.[employer] [address] [place] [address] [facility] 10/14/24 Cherise Sifuentes PA-C [address] [place] [address] [facility] 10/14/24 Inventory Administrator Relationship Specialty Start Date End Date Clifton Hung MD [address] [place] [address] PCP - General Family Medicine 01/16/16 Renata Barnhart MD [address] [address] Physician Radiation Oncology 04/25/21 Francine Madrid APRN.[employer] [address] [place] [address] [facility] 10/14/24 Cherise Sifuentes PA-C [address] [facility] [place] [address] [facility] 10/14/24 Inventory Administrator Relationship Specialty Start Date End Date Clifton Hung MD [address] [place] [address] PCP - General Family Medicine 01/16/16 Renata Barnhart MD [address] [place] [address] Physician Radiation Oncology 04/25/21 Francine Madrid APRN.[employer] [address] [place] [address] [facility] 10/14/24 Cherise Sifuentes PA-C [address] [place] [address] [facility] 10/14/24 Inventory Administrator Relationship Specialty Start Date End Date Clifton Hung MD [address] [place] [address] PCP - General Family Medicine 01/16/16 Renata Barnhart MD [address] [place] [address] Physician Radiation Oncology 04/25/21 Francine Madrid APRN.[employer] [address] [place] [address] [facility] 10/14/24 Cherise Sifuentes PA-C [address] [place] [address] [facility] 10/14/24 Inventory Administrator Relationship Specialty Start Date End Date Clifton Hung MD [address] [facility] [place] [address] PCP - General Family Medicine 01/16/16 Renata Barnhart MD [address] [facility] [place] [address] Physician Radiation Oncology 04/25/21 Cherise Sifuentes PA-C [address] [place] [address] [facility] 10/14/24 Inventory Administrator Relationship Specialty Start Date End Date Clifton Hung MD [address] [place] [address] PCP - General Family Medicine 01/16/16 Renata Barnhart MD [address] [facility] [place] [address] Physician Radiation Oncology 04/25/21 Francine Madrid APRN.CNP [address] [place] [address] Art Teacher Family Medicine 04/09/25 Cherise Sifuentes PA-C [address] [facility] [address] Art Teacher Family Medicine 04/09/25 Inventory Administrator Relationship Specialty Start Date End Date Clifton Hung MD [address] [place] [address] PCP - General Family Medicine 01/16/16 Renata Barnhart MD [address] [facility] [place] [address] Physician Radiation Oncology 04/25/21 Francine Madrid APRN.REPA[employer] [address] [place] [address] Art Teacher Family Medicine 04/09/25 Cherise Sifuentes PA-C [address] [facility] [address] Art Teacher Family Medicine 04/09/25 Inventory Administrator Relationship Specialty Start Date End Date Clifton Hung MD [address] [place] [address] PCP - General Family Medicine 01/16/16 Renata Barnhart MD [address] [place] [address] Physician Radiation Oncology 04/25/21 Francine Madrid APRN.REPA[employer] [address] [place] [address] Art Teacher Family Medicine 04/09/25 Cherise Sifuentes PA-C [address] [facility] [address] Art Teacher Family Medicine 04/09/25 Inventory Administrator Relationship Specialty Start Date End Date Clifton Hung MD [address] [facility] [address] PCP - General Family Medicine 01/16/16 Renata Barnhart MD [address] [facility] [place] [address] Physician Radiation Oncology 04/25/21 Francine Madrid APRN.REPA[employer]ER [employer] [address] [place] [address] [facility] 04/09/25 Cherise Sifuentes PA-C [address] [facility] [place] [address] [facility] 04/09/25 Inventory Administrator Relationship Specialty Start Date End Date Clifton Hung MD [address] [facility] [address] PCP - General Family Medicine 01/16/16 Renata Barnhart MD [address] [place] [address] Physician Radiation Oncology 04/25/21 Francine Madrid APRN.REPA[employer]ER [employer] [address] [facility] [place] [address] [facility] 04/09/25 Cherise Sifuentes PA-C [address] [facility] [address] [facility] 04/09/25 Inventory Administrator Relationship Specialty Start Date End Date Clifton Hung MD [address] [facility] [address] PCP - General Family Medicine 01/16/16 Renata Barnhart MD [address] [place] [address] Physician Radiation Oncology 04/25/21 Francine Madrid APRN.REPA[employer] [address] [place] [address] Art Teacher Family Medicine 04/09/25 Cherise Sifuentes PA-C [address] [place] [address] Art Teacher Family Medicine 04/09/25 Inventory Administrator Relationship Specialty Start Date End Date Clifton Hung MD [address] [place] [address] PCP - General Family Medicine 01/16/16 Renata Barnhart MD [address] [place] [address] Physician Radiation Oncology 04/25/21 Francine Madrid APRN.REPA[employer] [address] [place] [address] Art Teacher Family Medicine 10/14/24 03/25/25 Cherise Sifuentes PA-C [address] [place] [address] Art Teacher Family Medicine 10/14/24 04/08/25 Francine Madrid APRN.RE[employer] [address] [place] [address] Art Teacher Family Medicine 04/09/25 Cherise Sifuentes PA-C [address] [place] [address] Art Teacher Family Medicine 04/09/25 Inventory Administrator Relationship Specialty Start Date End Date Clifton Hung MD [address] [place] [address] PCP - General Family Medicine 01/16/16 Renata Barnhart MD [address] [place] [address] Physician Radiation Oncology 04/25/21 Francine Madrid APRN.CNP [address] [place] [address] [facility] 04/09/25 Cherise Sifuentes PA-C [address] [place] [address] [facility] 04/09/25 Goals (unrecognized section and content) Goals may be documented in a n alternate sectionGoals may be documented in an alternate sectionGoals may be documented in an alternate sectionGoals may be documented in an alternate sectionGoals may be documented in an alternate sectionGoals may be documented in an alternate sectionGoals may be documented in an alternate sectionGoals may be documented in an alternate sectionGoals may be documented in an alternate section INFORMATION SOURCE (unrecogn ized section and content) DATE CREATED AUTHOR 01/24/[address] [facility] DATE CREATED AUTHOR AUTHOR'S ORGANIZ ATION 10/25/2024 [facility] DATE CREATED AUTHOR AUTHOR'S ORGANIZ ATION 02/19/2025 [facility] DATE CREATED AUTHOR AUTHOR'S ORGANIZ ATION 05/18/2025 [facility] FOR RECORDS PERTAINING TO PATIENTS [...] BE BASED ON THE PRIMARY CLINICAL RECORDS. [employer] [facility]. provides no warranty or guarantee of the accuracy or completeness of information in this document.
[2025-05-19 22:16] VITALS: BP 199/62; PULSE 70; RESP 12; O2SAT 98
[2025-05-19 22:22] LABS: AST(SGOT) 22 U/L (<=31); Alanine Aminotransfer ALT/SGPT 12 U/L (<=34); Albumin, Serum 4.1 g/dL (3.4-4.8); Alkaline Phosphatase 49 U/L (35-104); Anion Gap 12 (5-15); BUN 15 mg/dL (4-19); BUN/Creat Ratio 16.7 RATIO (10-20); Calcium,Total 9.2 mg/dL (7.6-11.0); Carbon Dioxide 27.7 mmol/L (21.0-32.0); Chloride 102 mmol/L (98-108); Estimated Creatinine Clearance 56.11 ml/min (50-250); Globulin 3.1 g/dL (2.2-4.2); Glucose 113 mg/dL (70-99); Lipase 92 U/L (13-75); Potassium 3.5 mmol/L (3.3-5.1)
[2025-05-19 22:30] LABS: Red Blood Cells-Urine 0-5 SEEN /hpf (0-5)
[2025-05-19 22:31] LABS: Transitional Epithelial - Ur 0-5 SEEN /hpf (0-5)
[2025-05-19 22:32] LABS: Squamous Epithelial Cells - UA 10-25 SEEN /hpf (5-10)
[2025-05-19 23:08] VITALS: O2SAT 94
[2025-05-19 23:25] VITALS: O2SAT 100
[2025-05-19 23:30] VITALS: BP 198/68; O2SAT 100
[2025-05-19 23:45] VITALS: BP 204/58; PULSE 66; RESP 14; O2SAT 99
[2025-05-19 23:47] LABS: Prothrombin Time (Protime)PT. 13.9 SECONDS (11.7-14.9)
[2025-05-19 23:48] LABS: Partial Thromboplast Time 27.6 Seconds (24.1-36.2)
[2025-05-20] VITALS (19 sets, daily range): BP systolic 137–188; BP diastolic 60–87; PULSE 55–70; RESP 15–18; TEMP 36–36.9; O2SAT 94–100; BMI 25.1; BMI 24.7
--- NOTE | 2025-05-20 00:30 | CT_ITS ---
PROCEDURE: CTA ABD/PELVIS W/WO CONTRAST 05/20/2025 REASON FOR EXAM: ABDOMINAL PAIN TECHNIQUE: CTA ABD/PELVIS W/WO CONTRAST Multiplanar Sagittal and Coronal images were obtained. CONTRAST: Isovue 370 VOLUME: 100 mL One or more dose reduction techniques were used (e.g., Automated exposure control, adjustment of the mA and/or kV according to patient size, use of iterative reconstruction technique). RADIATION DOSE SUMMARY: CTDlvol: 35.62 mGy DLP: 70.96 mGycm COMPARISON: 05/19/2025. FINDINGS: The lung bases are clear. The peripheral soft tissues unremarkable. Degenerative changes of the spine. Normal caliber abdominal aorta. No evidence of aortic dissection or aneurysm. The celiac trunk, superior mesenteric artery, inferior mesenteric artery, bilateral renal arteries, and bilateral common iliac arterial systems are patent without evidence of stenosis or injury. No suspicious lymphadenopathy. The liver is unremarkable. Trace ascites adjacent to the liver. The gallbladder is not visualized. The pancreas, spleen, and adrenals are unremarkable. Bilateral renal subcentimeter hypodense lesions that are too small to Kathleen the urinary bladder is unremarkable. The uterus is surgically absent normal caliber large and small bowel without surrounding inflammatory changes. Dense colonic stool., CT/CTA Abd/Pelvis W/WO Contrast IMPRESSION: Trace ascites adjacent to the liver. Dense colonic stool which may suggest constipation. Reading Location: [place] [address]
--- NOTE | 2025-05-20 03:01 | HP.PCM.SX_ITS ---
HPI - General HPI Narrative DOM BARBA, is a 69 F who presents with abdominal pain. She reports the abdominal pain started this evening. She reports that she did vomit on the way to the hospital. She reports the abdominal pain is in her lower abdomen FOR[facility]LY [facility], [facility] Medical History History of stress test PONV (postoperative nausea and vomiting) COVID-19 (~10/2022) Loss of hearing Anxiety Discoloration of skin Injury of head and neck Dietary restriction Hx of gastritis Gastric reflux Shortness of breath on exertion Leg cramps History of pain when walking Heart palpitations Cardiology follow-up encounter Epigastric pain Vitamin D deficiency Rosacea Psoriasis IBS (irritable bowel syndrome) History of TIA (transient ischemic attack) Colon polyp Nausea Breast cancer, left Wears glasses Arthritis Easy bruising Excessive bleeding Former smoker CPAP (continuous positive airway pressure) dependence Hx of cardiovascular stress test (~09/13/18) Hx of echocardiogram (~06/30/17) Mixed hyperlipidemia Presence of stent in coronary artery (~01/05/17) [place]ie[place] disease Encounter for long-term (current) use of other medications Atherosclerotic heart disease of [place] coronary artery without angina pectoris Cardiovascular stress test abnormal Chest pain Home Medications ?Medication ?Instructions ?Recorded ?Last Taken ?Type L.acidoph,paracasei,B.animalis 10 1 ea PO QHS 09/23/16 06/28/17 History billion cell capsule montelukast 10 mg tablet 10 mg PO QPM 08/22/18 Unknow n History coenzyme Q10 100 mg capsule 100 mg PO DAILY 08/23/19 U nknown History metformin 500 mg 24 hr 1,000 mg PO BID 11/24/21 Unk nown History tablet,extended release (gastric retention) tamoxifen 20 mg tablet 20 mg PO DAILY 11/24/21 Unkn own History doxycycline monohydrate 50 mg 50 mg PO DAILY PRN Skin 05/28/22 Unknown History capsule clobetasol 0.05 % topical gel 1 applic topical DAILY P RN Skin 09/03/22 Unknown History Cleansing omeprazole 40 mg capsule,delayed 40 mg PO DAILY Unknown History release Handicap Placard #1 ea 08/30/23 Unknown Rx calcium 315 mg (as 2 tab PO DAILY 08/30/23 Unkn own History citrate)-vitamin D3 6.25 mcg (250 unit) tablet ezetimibe 10 mg tablet (Zetia) 10 mg PO DAILY 08/30/23 Unknown History ketoconazole 2 % shampoo 1 applic topical QODAY 08/30 Unknown History lactulose 10 gram/15 mL oral 15 ml PO DAILY PRN consti pation 11/03/23 Unknown Rx solution #473 mL ammonium lactate 12 % lotion 1 applic topical PRN PRN dry skin 04/21/24 Unknown History estradiol 0.01% (0.1 mg/gram) 1 g vaginal .2xweek 04/08 03/01 Unknown History vaginal cream lisinopril 40 mg tablet 40 mg PO DAILY #90 tabs 04/0806/19/24 Rx pioglitazone 15 mg tablet 15 mg PO QDAY 04/21/24 Unkno wn History metoprolol tartrate 25 mg tablet 25 mg PO BID #180 tab s 12/04/24 Unknown Rx dicyclomine 20 mg tablet 20 mg PO TID PRN abdominal 0 12/11/24 Unknown Rx discomfort #90 TABLETS khmeur-alkbhyuy-shfrgpf 3 cap PO QAC #300 caps 12/27 Unknown Rx 36,000-114,000-180,000 unit capsule,delay rel (Creon) nitroglycerin 0.4 mg sublingual 0.4 mg sublingual Q5M PRN Chest 02/12/25 Unknown Rx tablet Pain #25 tabs amlodipine 5 mg tablet 5 mg PO DAILY 05/19/25 Unkno wn History Allergy/AdvReac Type Severity Reaction Status Date / Time lovastatin Allergy Intermediate Other Verified 05/19/25 21:13 rosuvastatin (From Crestor) Allergy Intermediate Other Verified 05/19/25 21:13 ticagrelor (From Brilinta) Allergy Intermediate Shortness Verified 05/19/25 21:13 of breath atorvastatin Allergy Unknown myalgia Verified 05/19/25 21:13 hydrocodone Allergy Hives Verified 05/19/25 21:13 cephalexin monohydrate (From AdvReac Other Verified 05/19/25 21:13 Keflex) pravastatin AdvReac myalgias Verified 05/19/25 21:13 Family History Mother Cancer pancreatic cancer Father , MD age 20's (premature CAD), 3 vessel CABG, hyperlipidemia, CHf Myocardial infarction CAD (coronary artery disease) Brother Cancer lung cancer Surgical History History of bilateral cataract extraction History of detached retina repair (~04/2023) Hx of release of tendon (~01/13/23) History of bunionectomy of left great toe History of lumpectomy of left breast Ductal carcinoma in situ (DCIS) of left breast History of cardiac catheterization (~10/12/18) History of coronary artery stent placement (~12/30/16) Status post trigger finger release History of carpal tunnel release of both wrists Hx of foot surgery Status post lumbar spine operative procedure for decompression of spinal cord Status post excision of lipoma (~11/2018) History of section History of parathyroidectomy History of cholecystectomy History of hysterectomy Social History household members: spouse housing: house current occupational status: employed Smoking Status: Former smoker quit date: 11/08/87 pack-years: 6 how long ago did patient quit smokin second hand exposure: Yes alcohol intake: never substance use type: does not use caffeine: Yes Type: coffee Number of servings: 2 what type of physical activity do you participate in: none seatbelt use: always do you feel safe at home: Yes ROS Constitutional Constitutional: Denies anorexia, chills, fatigue or fever(s) Eyes Eyes: Denies blurry vision ENT HEENT: Denies abnormal hearing Cardiovascular Cardiovascular: Denies chest pain Respiratory/Chest Respiratory/Chest: Denies cough or dyspnea Gastrointestinal Gastrointestinal: Reports abdominal pain, nausea and vomiting; Denies constipation or diarrhea Genitourinary Genitourinary: Denies change in urinary stream Musculoskeletal Musculoskeletal: Denies abnormal gait Neurologic Neurologic: Denies dizziness Psychiatric Psychiatric: Denies anxiety Endocrine Endocrinology: Denies heat intolerance Hematologic/Lymphatic Hematologic/Lymphatic: Denies easy bleeding Vital Signs Vital Signs Vital Signs: 05/19/25 21:12 05/19/25 22:16 05/19/25 23:08 Temperature 97.8 F Temperature Source Oral Pulse Rate 74 70 Respiratory Rate 18 12 Blood Pressure 196/88 H 199/62 H Blood Pressure Mean 124 107 Pulse Ox 99 98 94 Oxygen Delivery Method Room Air Room Air 05/19/25 23:25 05/19/25 23:30 05/19/25 23:45 Temperature Temperature Source Pulse Rate 66 Respiratory Rate 14 Blood Pressure 198/68 H 204/58 H Blood Pressure Mean 116 116 Pulse Ox 100 100 99 Oxygen Delivery Method Room Air 05/20/25 00:00 05/20/25 02:00 Temperature Temperature Source Pulse Rate 66 Respiratory Rate 16 Blood Pressure 154/60 H Blood Pressure Mean 91 Pulse Ox 100 94 Oxygen Delivery Method Room Air Weight Weight: 142 lb 8 oz Body Mass Index (BMI) 25.2 Physical Exam Const oriented x3 and no apparent distress Resp normal respiratory effort GI soft to palpation Palpation: tender LLQ and RLQ Extremity normal to inspection Results Lab / Micro Data 05/19/25 21:35 05/19/25 21:35 Labs: Laboratory Results - last 24 hr 05/19/25 21:35: WBC 5.9, RBC 4.19 L, Hgb 12.9, Hct 38.8, MCV 92.6, MCH 30.8, MCHC 33.2, RDW Std Deviation 47.4 H, RDW Coeff of Clementine 14.0, Plt Count 198, MPV 9.2, Immature Gran % (Auto) 0.200, Neut % (Auto) 45.1 L, Lymph % (Auto) 45.0 H, Collin % (Auto) 8.0, Eos % (Auto) 1.4, Baso % (Auto) 0.3, Absolute Neuts (auto) 2.7, Absolute Lymphs (auto) 2.66, Nucleated RBC % 0, Sodium 141, Potassium 3.5, Chloride 102, Carbon Dioxide 27.7, Anion Gap 12, BUN 15, Creatinine 0.88, Estim Creat Clear Calc 56.11, Est GFR (MDRD) Non-Af 72, BUN/Creatinine Ratio 16.7, G lucose 113 H, Calcium 9.2, Total Bilirubin 0.21, AST 22, ALT 12, Alkaline Phosphatase 49, Total Protein 7.2, Albumin 4.1, Globulin 3.1, Albumin/Globulin Ratio 1.3, Lipase 92 H 05/19/25 21:49: Urine Color Yellow, Urine Clarity Clear, Urine pH 7.0, Ur Specific [place] 1.010, Urine Protein 30 H, Urine Glucose (UA) Normal, Urine Ketones Negative, Urine Occult Blood 10 H, Urine Nitrite Negative, Urine Bilirubin Negative, Urine Urobilinogen Normal, Ur Leukocyte Esterase 500 H, Urine RBC 0-5 SEEN, Urine WBC 10-25 SEEN, Ur Squamous Epith Cells 10-25 SEEN, Ur Transition Epith Cell 0-5 SEEN, Urine Bacteria 1+, Urine Mucus 0 SEEN 05/19/25 23:26: PT 13.9, INR 1.0, APTT 27.6, Lactic Acid < 1.0, Blood Type A POSITIVE, Antibody Screen NEGATIVE Imaging Radiology Impression Abdomen/Pelvis CT 05/19/25 21:48 IMPRESSION: Mildly prominent loops of small bowel in the left lateral abdomen, peripheral to the colon, and with associated mesenteric edema and free fluid. Combination of findings raises concern for developing small bowel obstruction (for which internal hernia is possible). Additional considerations include enteritis or mesenteric ischemia. Correlate with symptoms and consider Surgical consultation. Reading Location: [id number] Abdomen/Pelvis CTA 05/20/25 00:30 IMPRESSION: Trace ascites adjacent to the liver. Dense colonic stool which may suggest constipation. Reading Location: [id number] Assessment & Plan Assessment/Plan (1) SBO (small bowel obstruction): PLAN: The patient had an original CT scan without contrast that showed concern for internal hernia with some stranding in the mesentery. There is also concern for small bowel obstruction. She had a repeat CT scan with oral and IV contrast that did not mention any signs of internal hernia. She is still having some mild abdominal pain but reports that it did improve since coming in as well as her nausea and vomiting. She points to her lower abdomen when I asked her where her pain is in her lower abdomen is soft but mildly tender to palpation. There is no guarding or rebound. Her lactate was normal her white count was normal. I do not think there is any indication to go straight to surgery tonight. I would like to observe her in the hospital and if she is still having pain in the morning with no improvement or if her white count increases we will discuss laparoscopic exploration. Wong Valdes MD Pager: [facility] [address] [place] [address], [address] [place] [address] Office:
--- OUTSIDE RECORDS SUMMARY | 2025-05-20 03:11 | XMS RPT_ITS | CCD ---
Author Organization [facility] ion Partnership [facility] Care Team Providers Care Growth Media Mixer Mushroom Name Role Phone Moni Garcia Unavailable Unavailable Roof YARD STOCKER, Octaviano Viera Unavailable Moni Garcia Unavailable Unavailable Manda Peck Unavailable Unavailable Yee Mei Unavailable Jennifer RN, Nancy Callahan Unavailable Moni Garcia Unavailable Unavailable Jennifre RN, Nancy Callahan Unavailable Jennifer RN, Nanyc Callahan Unavailable AGNES Paige, Blanca Myles Unavailable UnavailClifton Goetz MD Primary Care Provider Obey MONK MD, Daesung Unavailable Dr. Clifton Hung Primary Care Provider Dr. Clifton Hung Referring Provider Roof YARD STOCKER, YARD STOCKER-Marleny Viera Attending Provider Clifton Hung MD Primary Care Provider Obey MONK MD, Daesung Unavailable Dr. Ron Gomez Attending Provider Roof YARD STOCKER, YARD STOCKER-Marleny Viera Referring Provider Roof YARD STOCKER, YARD STOCKER-C Octaviano Viera Other Provider Clifton Hung MD Primary Care Provider Clifton Hung MD Primary Care Provider Obey MONK MD, Dasantosung Unavailable Dr. Clifton Hung Primary Care Provider Dr. Clifton Hung Referring Provider Roof YARD STOCKER, YARD STOCKER-C Octaviano Viera Attending Provider Sanket YARD STOCKER, YARD STOCKER-C Karin Myles Attending Provider [phone] Dr. Carson Alcantar Attending Provider [phone] Dr. Carson Alcantar Other Provider [phone] Admitting Unavailable TEO HUTCHINS DR Attending Unavailable TEO HUTCHINS DR Primary Care Unavailable CLIFTON HUNG MD Consulting Unavailable PROVIDER, UNKNOWN Consulting Unavailable Dr. Clifton Hung Primary Care Provider Dr. Clifton Hung Referring Provider Sanket YARD STOCKER, YARD STOCKER-C Karin Myles Attending Provider [phone] Dr. Carson Alcantar Attending Provider [phone] Dr. Carson Alcantar Other Provider [phone] Dr. Clifton Hung Primary Care Provider Dr. Clifton Hung Referring Provider Roof YARD STOCKER, YARD STOCKER-C Octaviano Viera Attending Provider Sanket YARD STOCKER, YARD STOCKER-Marleny Myles Attending Provider [phone] Dr. Clifton Hung Primary Care Provider Dr. Clifton Hung Referring Provider Roof YARD STOCKER, YARD STOCKER-C Octaviano H Attending Provider Roof YARD STOCKER, YARD STOCKER-C Octaviano H Referring Provider Roof YARD STOCKER, YARD STOCKER-C Octaviano H Other Provider Dr. Karsten Zarate Attending Provider Dr. Clifton Hung Primary Care Provider Dr. Clifton Hung Referring Provider Roof YARD STOCKER, YARD STOCKER-C Octaviano H Attending Provider Dr. Karsten Zarate Attending Provider Roof YARD STOCKER, YARD STOCKER-C Octaviano H Referring Provider Dr. Carson Alcantar [...] Referring Unavailable Dick, Clifton Referring Unavailable Elliot, [place] Attending Unavailable Dick, Clifton Primary Care Unavailable [...] DICK, CLIFTON A Primary Care Unavailable Knoble INTERVENTIONAL PAIN PHYSICIAN.GYMNASIUM TEACHER, Francine Unavailable Bear MENDOZA, Cherise Unavailable Knjudy INTERVENTIONAL PAIN PHYSICIAN.GYMNASIUM TEACHER, Francine Unavailable Bear MENDOZA, Cherise Unavailable BENDARAM, [...] [CEPHALEXIN] drug allergy 6 Other: See Comments [facility] Work Phone: (20 sources) Acetaminophen / HYDROcodone; Translations: [HYDROCODONE-ACET AMINOPHEN] Drug Allergy 6 Itching [facility] Work Phone: (20 sources) atorvastatin; Translations: [ATORVASTATIN] Drug Allergy 3 Other: See Comments [facility] Work Phone: (20 sources) Lovastatin; Translations: [LOVASTATIN] Drug Allergy 3 Other: See Comments [facility] Work Phone: (20 sources) rosuvastatin; Translations: [ROSUVASTATIN] Drug Allergy 0 Myalgia [facility] Work Phone: (20 sources) Ticagrelor; Translations: [TICAGRELOR] Drug Allergy 7 Shortness of Breath [facility] Work Phone: (13 sources) Cephalexin; Translations: [cephalexin monohydrate] Drug Allergy 2 Other [facility] (12 sources) HYDROcodone Drug Allergy 2 Hives [facility] (12 sources) Pravastatin Drug Allergy 2 myalgias [facility] (1 source) Codeine Drug Allergy [facility] Repository (1 source) atorvastatin Drug Allergy 4 [facility] (1 source) HYDROcodone Drug Allergy 4 [facility] (1 source) Lovastatin Drug Allergy 4 [facility] (1 source) Pravastatin Drug Allergy 4 [facility] (1 source) rosuvastatin Drug Allergy 4 [facility] (1 source) Ticagrelor Drug Allergy 4 [facility] Repository Medications Current Medications Medication Drug Class(es) [...] th twice daily for 10 days. amylase 410904 unt / lipase 70410 unt / protease 140138 unt delayed release oral capsule (20 sources) Start: 03-04-2023 take 2-3 capsules by mouth at bedtime ppqnac-yawiirwg-sdg lase (CREON 36) 36,000-114,000- 180,000 unit delayed release capsule Take 2-3 capsules by mouth with meals and at bedtime. 03/04/2023 Active Start: 03-04-2023 lipase-proteas e-amylase (CREON 36) 36,000-114,000- 180,000 unit delayed release capsule .COMPLEX 03/04/2023 Active Start: 12-10-2022 End: 04-01-2023 npvcla-aqnqvixg-ywsopqc (CRE ON 36) 36,000-114,000- 180,000 unit delayed release capsule .COMPLEX 0 03/04/2023 Active Start: 12-10-2022 End: 04-25-2024 take 61474-51817 capsules by mouth three times daily at mealtime Vhfido-Xrkilxfm-Ztbbukd (Creon) 12,000-38,000 -60,000 unit capsule,delayed release(DR/EC) Discontinued [...] Comment on above: Take 1 capsule by [facility] once daily. clobetasol propionate 0.0005 mg/mg topical [...] once daily. Take [address] [facility] once daily. iv contrast (will be provided [...] 1000 MG TABS every night METFORMIN HCL [id number] Nancy Myers PA-C Start: 01-05-2017 take 1 tablet by le th twice daily METFORMIN HCL 500 MG TABS One tablet by mouth twice daily METFORMIN HCL [id number] Ron Gomez MD Start: 09-23-2016 End: 10-22-2017 [...] once daily METOPROLOL SUCCINATE ER 50 MG [id number]-SNH One tablet by mouth daily METOPROLOL SUCCINATE [id number] Nancy Myers PA-C Start: 01-05-2017 take 0.5 tablet by m out twice daily METOPROLOL TARTRATE 50 MG TABS 1/2 tablet by mouth twice daily METOPROLOL TARTRATE [id number] Ron Gomez MD Start: 09-23-2016 End: 10-22-2017 [...] Comment on above: Take 1 capsule by [facility] twice daily for 7 days. nitroglycerin 0.4 [...] on above: Take [address] [facility] once daily. OTC NUTRITIONAL SUPPLEMENT (20 sources) [...] Comment on above: [facility] tamoxifen 20 mg oral [...] Comment on above: [facility]. Completed/Discontinued [...] Start: 04-23-2017 take [address] [facility] once daily, then take 1 tablet by mouth, then take 1 tablet by mouth once daily PLAVIX 75 MG TABS Four tablets by mouth on day 1 then One tablet by mouth daily CLOPIDOGREL BISULFATE [id number] Ron Gomez MD cyclobenzaprine hydrochloride 10 mg [...] le once daily CARDIZEM CD 120 MG [id number]-EVF One tablet by mouth daily (on HOLD) DILTIAZEM HCL COATED BEADS [id number] Ron Gomez MD Start: 01-05-2017 take 1 tablet by le once daily CARDIZEM CD 180 MG ZG92C-UUL One tablet by mouth daily DILTIAZEM HCL COATED BEADS [id number] Nacny Myers PA-C Start: 09-23-2016 End: 06-30-2017 take [...] TRULICITY 1.5 MG/0.5ML SOPN as directed DULAGLUTIDE [id number] Nancy Myers PA-C Start: 01-05-2017 TRULICITY 1.5 MG/0.5ML SOPN as directed DULAGLUTIDE [id number] Nancy Myers PA-C dulaglutide (TRULICITY) 3 mg/0.5 [...] by mouth daily OMEGA-3 FATTY ACIDS CAPS [id number] Nancy Myers PA-C Start: 01-05-2017 take 1 tablet by le th once daily FISH OIL CAPS One tablet by mouth daily OMEGA-3 FATTY ACIDS CAPS [id number] Nancy Myers PA-C fluconazole 150 mg oral [...] 37.5-25 MG CAPS One tablet by mo [facility] daily TRIAMTERENE-HCTZ [id number] Nancy Rodriguez RN levoFLOXacin 500 mg oral [...] 7 LORAZEPAM 1 MG TABS needed LORAZEPAM [id number] Octaviano Humphries YARD STOCKER magnesium sulfate 100 mg oral capsule (20 [...] TABLET PO DAILY May 28, 2022 12:00am Naoma-3 Fatty Acids (20 sources) Start: 11-24-2021 End: 05-28-2022 take 500 mg by mouth at bedtime Naoma-3 Fatty Acids Discontinued 500 MG PO AT BEDTIME November 24, 2021 2:43pm May 28, 2022 1:28pm Start: 11-24-2021 End: 05-28-2022 take 500 mg by mouth at bedtime Naoma-3 Fatty Acids Di scontinued 500 MG PO AT BEDTIME November 24, 2021 3:43pm May 28, 2022 2:28pm Start: 01-01-2017 End: 11-24-2021 take 500 mg by mouth at bedtime Naoma-3 Fatty Acids Di scontinued 500 MG PO AT BEDTIME January 01, 2017 12:00am November 24, 2021 2:44pm Start: 01-01-2017 End: 11-24-2021 take 500 mg by mouth at bedtime Naoma-3 Fatty Acids Di scontinued 500 MG PO [...] One tablet by mouth daily PROBIOTIC PRODUCT [id number] Nancy Myers PA-C PROBIOTIC PRODUCT (5 sources) Start: 01-05-2017 take 1 tablet by mouth once daily PROBIOTIC DAILY CAPS One tablet by mouth daily PROBIOTIC PRODUCT [id number] Nancy Myers PA-C Start: 01-05-2017 take 1 tablet by le th once daily PROBIOTIC DAILY CAPS One tablet by mouth daily PROBIOTIC PRODUCT [id number] Nancy Myers PA-C rosuvastatin calcium 10 mg [...] daily (complete current supply then STOP) TICAGRELOR [id number] Octaviano Maximiliano Yandel YARD STOCKER Start: 01-05-2017 take 1 tablet by le th twice daily BRILINTA 60 MG TABS One tablet by mouth twice daily TICAGRELOR [id number] Nancy Myers PA-C vitamin b6 100 mg [...] disease (20 sources) Atherosclerotic heart disease of mohe[place] coronary artery without angina pectoris; Translations: [Coronary [...] sources) Long-term current use of tamoxifen; Translations: [terminal carman (current) use of selective estrogen receptor modulators (SERMs)] Episodic Other aftercare (1 source) terminal carman (current) use of selective estrogen receptor modulators [...] (5 sources) Long-term drug therapy; Translations: [Other senior care (current) drug therapy] Onset: 7 01-20-2017 Unclassified [...] 07-04-2024 Episodic Other aftercare (7 sources) Other superintendent container terminal (current) drug therapy; Translations: [Other senior care (current) drug therapy] Onset: 01-20-2017 01-20-2017 Episodic [...] , Intermediate >32 , Resistant >64 Abnormal [facility] Comment on above: Performed By: #### 6 30-4 ####[facility] LABCLIA [id number] [address] [facility] CNOVon 04-24-2025 CNOV Office Visit (FAMPWS ) AUSTINDOM Vel ([id number]) 1955 F Date Time Provider Department 04/24/25 8:00 AM FRANCINE MADRID During your visit today, we recorded the following information about you: Pulse Blood pressure Weight 68/minute 138/76 63 kg Francine Madrid, INTERVENTIONAL PAIN PHYSICIAN.GYMNASIUM TEACHER 04/24/2025 8:07 AM Signed Chief Complaint Patient [...] disturbance 06/2017 Arthritis tendonitis, arthritis 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 Has been on provigil for 5-10 yrs Obstructive sleep apnea on CPAP Sibilia Other skin changes 09/26/2021 Seeing derm Pancreatic insufficiency ([facility]) 04/08/[address] Alcantar Psoriasis RLS (restless legs syndrome) 02/22/[address] Aysha Laurent with ocular symptoms S/P angioplasty with stent 01/09/2017 stents to mid and proximal left anterior descending Art, and angio of ostium of #2 diagonal Scalp itch Seasonal allergies Dr Pompa Type 2 diabetes mellitus with hyperlipidemia ([facility]) 04/17/2024 Uterine fibroid 1994? Hysterectomy at age 41 Uterine polyp No longer an issue Vitamin D deficiency 2012 Well adult exam 01/16/2016 Last done: 09/08/2018 Previous Surgical History PAST SURGICAL HISTORY Procedure Laterality Date 2D ECHO (EXEP) 06/30/2017 EF=65%, trivial CO, TI and 1+ PI Unchanged from 04/2017 2D ECHO (EXEP) 05/14/2021 EF=60%, 1+ TI, trival CO, AI, PI 2D ECHO (EXEP) 09/16/2021 EF=60%, [...] Artery Dise (more content not included)... Normal [facility] UA DIP, URINE (POC)on 2024 BILIRUBIN UA (POCT) Small Abnormal Negative [facility] CLARITY UA (POCT) Clear [facility] COLOR UA (POCT) Yellow [facility] GLUCOSE UA (POCT) Negative Negative mg/dL [facility] Hemoglobin Ql (U) Large Abnormal Negative [facility] Interpretation and review of laboratory results Abnormal [facility] KETONE UA (POCT) Trace Negative mg/dL [facility] LEUKOCYTES UA (POCT) Small Abnormal Negative [facility] NITRITE UA (POCT) Negative Negative [facility] PH UA (POCT) 5.5 4.5 - 8.0 [facility] Protein Ql (U) >=300 Abnormal Negative mg/dL [facility] SPECIFIC GRAVITY UA (POCT) >=1.030 1.005 - 1.030 [facility] UROBILINOGEN UA (POCT) 0.2 Normal E.U./d L [facility] Location: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 Normal [facility] CNOVon 04-09-2025 CNOV Office Visit (OBGYWM ) AUSTINDOM Vel ([id number]) 1955 F Date Time Provider Department 04/09/25 9:30 AM SIMA DUMONT OBDORIAN During your visit today, we recorded the following information about you: Blood pressure Weight Height 156/90 64.9 kg 1.59 m Sima Dumont APRN.CNP 04/09/2025 9:59 AM Signed Target Network Analyst offered: Patient declines. Dom is a 69 year old who presents for an annual gynecologic exam without complaints. Nodule on adrenal gland - seeing shuttle hand. 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 Has been on provigil for 5-10 yrs Obstructive sleep apnea on CPAP Sibilia Other skin changes 09/26/2021 Seeing yosef Pancreatic insufficiency ([facility]) 04/08/[address] Alcantar Psoriasis RLS (restless legs syndrome) 02/22/[address] Aysha Laurent with ocular symptoms S/P angioplasty with stent 01/09/2017 stents to mid and proximal left anterior descending Art, and angio of ostium of #2 diagonal Scalp itch Seasonal allergies Dr Pompa Type 2 diabetes mellitus with hyperlipidemia ([facility]) 04/17/2024 Uterine fibroid 1994? Hysterectomy at age 41 Uterine polyp No longer an issue Vitamin D deficiency 2012 Well adult exam 01/16/2016 Last done: 09/08/2018 PAST SURGICAL HISTORY Procedure Laterality Date 2D ECHO (EXEP) 06/30/2017 EF=65%, trivial CO, TI and 1+ PI Unchanged from 04/2017 2D ECHO (EXEP) 05/14/2021 EF=60%, 1+ TI, trival CO, AI, PI 2D ECHO (EXEP) 09/16/2021 EF=60%, [...] SURGICAL H (more content not included)... Normal [facility] 25(OH)D3 SerPl-ncon 2024 25-hydroxyvitamin D3 [Mass/Vol] 29.6 ng/mL Low 31.0-80.0 [facility] Comment on above: Order Comment: Speci men Type: BLOOD SPECIMENOrdering Facility: [facility] Address: [address] [place] [address] Performed By: #### 1 989-3 ####[facility] LABIA [id number] [place] [address] [place] ALBUMIN/CREATININE RATIO, UR INEon 04-06-2025 Albumin DL <= 20 mg/L (U) [Mass/Vol] mg/dL Normal [facility] Comment on above: Order Comment: Speci men Type: URINE SPECIMENOrdering Facility: [facility] Address: [address] [place] [address] Performed By: #### U ACR ####[facility], INCIA [id number] [place] [address] [place] Albumin/Creatinine (U) [Mass ratio] <15 Normal <30 [facility] Comment on above: Order Comment: Speci men Type: URINE SPECIMENOrdering Facility: [facility] Address: [address] [place] [address] Result Comment: Adul t Male and Female Nephrotic Criteria: <30 mg/g is considered normal to mildly increased 30-300 mg/g is considered moderately increased >300 mg/g is considered severely increased KDIGO. (2013). KDIGO 2012 Clinical Practice Guideline for the Evaluation and Management of Chronic Kidney Disease. Official Journal of the International Society of Nephrology, 3(1), 1-150. Performed By: #### U ACR ####[facility] LABIA [id number] [place] [id number] [place] Creatinine (U) [Mass/Vol] 81.5 mg/dL Normal 20.0-300.0 [facility] Comment on above: Order Comment: Speci men Type: URINE SPECIMENOrdering Facility: [facility] Address: [address] [place] [address] Performed By: #### U ACR ####[facility] LABCLIA [id number] [place] [address] [place] CBC W Auto Differential pane l (Bld)on 04-06-2025 Basophils (Bld) [#/Vol] 0.03 10*3/uL Normal <0.11 [facility] Comment on above: Order Comment: Speci men Type: BLOOD SPECIMENOrdering Facility: [facility] Address: [address] [place] [address] Performed By: #### 5 7021-8 ####[facility] [id number] [place] [address] [place] Basophils/100 WBC (Bld) 0.3 % Normal [facility] Comment on above: Order Comment: Speci men Type: BLOOD SPECIMENOrdering Facility: [facility] Address: [address] [place] [address] Performed By: #### 5 7021-8 ####[facility] [id number] [place] [address] [place] Differential cell count method Nom (Bld) Auto Normal [facility] Comment on above: Order Comment: Speci men Type: BLOOD SPECIMENOrdering Facility: [facility] Address: [address] [place] [address] Performed By: #### 5 7021-8 ####[facility] [id number] [place] [address] [place] Eosinophils (Bld) [#/Vol] 0.12 10*3/uL Normal <0.46 [facility] Comment on above: Order Comment: Speci men Type: BLOOD SPECIMENOrdering Facility: [facility] Address: [address] [place] [address] Performed By: #### 5 7021-8 ####[facility] CHARLOTTENADIALIA [id number] [place] [address] [place] Eosinophils/100 WBC (Bld) 1.4 % Normal [facility] Comment on above: Order Comment: Speci men Type: BLOOD SPECIMENOrdering Facility: [facility] Address: [address] [place] [address] Performed By: #### 5 7021-8 ####[facility]OSPITALGREYSONLILLIANA [id number] [place] [address] [place] Erythrocyte distribution width (RBC) [Ratio] 13.8 % Normal 11.5-15.0 [facility] Comment on above: Order Comment: Speci men Type: BLOOD SPECIMENOrdering Facility: [facility] Address: [address] [place] [address] Performed By: #### 5 7021-8 ####[facility]ITALGREYSONSANPET[facility] [id number] [place] [address] [place] Hematocrit (Bld) [Volume fraction] 37.9 % Normal 36.0-46.0 [facility] Comment on above: Order Comment: Speci men Type: BLOOD SPECIMENOrdering Facility: [facility] Address: [address] [place] [address] Performed By: #### 5 7021-8 ####[facility]ITALNCLIA [id number] [place] [address] [place] Hemoglobin (Bld) [Mass/Vol] 12.4 g/dL Normal 11.5-15.5 [facility] Comment on above: Order Comment: Speci men Type: BLOOD SPECIMENOrdering Facility: [facility] Address: [address] [place] [address] Performed By: #### 5 7021-8 ####[facility]ITALNCLIA [id number] [place] [address] [place] Immature granulocytes (Bld) [#/Vol] 0.03 10*3/uL Normal <0.10 [facility] Comment on above: Order Comment: Speci men Type: BLOOD SPECIMENOrdering Facility: [facility] Address: [address] [place] [address] Performed By: #### 5 7021-8 ####[facility] [id number] [place] [address] [place] Immature granulocytes/100 WBC (Bld) 0.3 % Normal [facility] Comment on above: Order Comment: Speci men Type: BLOOD SPECIMENOrdering Facility: [facility] Address: [address] [place] [address] Performed By: #### 5 7021-8 ####[facility] [id number] [place] [address] [place] Lymphocytes (Bld) [#/Vol] 2.26 10*3/uL Normal 1.00-4.00 [facility] Comment on above: Order Comment: Speci men Type: BLOOD SPECIMENOrdering Facility: [facility] Address: [address] [place] [address] Performed By: #### 5 7021-8 ####[facility] [id number] [place] [address] [place] Lymphocytes/100 WBC (Bld) 26.3 % Normal [facility] Comment on above: Order Comment: Speci men Type: BLOOD SPECIMENOrdering Facility: [facility] Address: [address] [place] [address] Performed By: #### 5 7021-8 ####[facility] [id number] [place] [address] [place] MCH (RBC) [Entitic mass] 30.4 pg Normal 26.0-34.0 [facility] Comment on above: Order Comment: Speci men Type: BLOOD SPECIMENOrdering Facility: [facility] Address: [address] [place] [address] Performed By: #### 5 7021-8 ####[facility] LETYWNCLIA [id number] [place] [address] [place] MCHC (RBC) [Mass/Vol] 32.7 g/dL Normal 30.5-36.0 [facility] Comment on above: Order Comment: Speci men Type: BLOOD SPECIMENOrdering Facility: [facility] Address: [address] [place] [address] Performed By: #### 5 7021-8 ####[facility] HOSPITALNCYADIRAA [id number] [place] [address] [place] MCV (RBC) [Entitic vol] 92.9 fL Normal 80.0-100.0 [facility] Comment on above: Order Comment: Speci men Type: BLOOD SPECIMENOrdering Facility: [facility] Address: [address] [place] [address] Performed By: #### 5 7021-8 ####[facility] HOSPITALLIA [id number] [place] [address] [place] Monocytes (Bld) [#/Vol] 0.73 10*3/uL Normal <0.87 [facility] Comment on above: Order Comment: Speci men Type: BLOOD SPECIMENOrdering Facility: [facility] Address: [address] [place] [address] Performed By: #### 5 7021-8 ####[facility]ITALNCLIA [id number] [place] [address] [place] Monocytes/100 WBC (Bld) 8.5 % Normal [facility] Comment on above: Order Comment: Speci men Type: BLOOD SPECIMENOrdering Facility: [facility] Address: [address] [place] [address] Performed By: #### 5 7021-8 ####[facility] HOSPITALLIA [id number] [place] [address] [place] Neutrophils (Bld) [#/Vol] 5.41 10*3/uL Normal 1.45-7.50 [facility] Comment on above: Order Comment: Speci men Type: BLOOD SPECIMENOrdering Facility: [facility] Address: [address] [place] [address] Performed By: #### 5 7021-8 ####[facility] [id number] [place] [address] [place] Neutrophils/100 WBC (Bld) 63.2 % Normal [facility] Comment on above: Order Comment: Speci men Type: BLOOD SPECIMENOrdering Facility: [facility] Address: [address] [place] [address] Performed By: #### 5 7021-8 ####[facility] [id number] [place] [address] [place] Nucleated RBC (Bld) [#/Vol] 10*3/uL Normal <0.01 [facility] Comment on above: Order Comment: Speci men Type: BLOOD SPECIMENOrdering Facility: [facility] Address: [address] [place] [address] Performed By: #### 5 7021-8 ####[facility] [id number] [place] [address] [place] Nucleated RBC/100 WBC (Bld) [Ratio] 0.0 /100 WBC Normal [facility] Comment on above: Order Comment: Speci men Type: BLOOD SPECIMENOrdering Facility: [facility] Address: [address] [place] [address] Performed By: #### 5 7021-8 ####[facility]OS[facility]ITALNCLI [id number] [place] [address] [place] Platelet mean volume (Bld) [Entitic vol] 9.6 fL Normal 9.0-12.7 [facility] Comment on above: Order Comment: Speci men Type: BLOOD SPECIMENOrdering Facility: [facility] Address: [address] [place] [address] Performed By: #### 5 7021-8 ####[facility]ITALNCLIA [id number] [place] [address] [place] Platelets (Bld) [#/Vol] 178 10*3/uL Normal 150-400 [facility] Comment on above: Order Comment: Speci men Type: BLOOD SPECIMENOrdering Facility: [facility] Address: [address] [place] [address] Performed By: #### 5 7021-8 ####[facility]ITALNCSANPET[facility] [id number] [place] [address] [place] RBC (Bld) [#/Vol] 4.08 10*6/uL Normal 3.90-5.20 [facility] Comment on above: Order Comment: Speci men Type: BLOOD SPECIMENOrdering Facility: [facility] Address: [address] [place] [address] Performed By: #### 5 7021-8 ####[facility] HOSPITALNCA [id number] [place] [address] [place] WBC (Bld) [#/Vol] 8.58 10*3/uL Normal 3.70-11.00 [facility] Comment on above: Order Comment: Speci men Type: BLOOD SPECIMENOrdering Facility: [facility] Address: [address] [place] [address] Performed By: #### 5 7021-8 ####[facility]ITALNCLIA [id number] [place] [address] [place] Comprehensive metabolic 2000 panelon 04-06-2025 Albumin [Mass/Vol] 3.7 g/dL Low 3.9-4.9 [facility] Comment on above: Order Comment: Speci men Type: BLOOD SPECIMENOrdering Facility: [facility] Address: [address] [place] [address] Performed By: #### 1 9123-9, 13274-9 ####[facility] LAURENT MILLTOWNCLIA [id number] [place] [address] [place] ALP [Catalytic activity/Vol] 49 U/L Normal 34-123 [facility] Comment on above: Order Comment: Speci men Type: BLOOD SPECIMENOrdering Facility: [facility] Address: [address] [place] [address] Performed By: #### 1 9123-9, 86818-9 ####[facility] MILLTOWNCLIA [id number] [place] [address] [place] ALT [Catalytic activity/Vol] 11 U/L Normal 7-38 [facility] Comment on above: Order Comment: Speci men Type: BLOOD SPECIMENOrdering Facility: [facility] Address: [address] [place] [address] Performed By: #### 1 9123-9, 48625-3 ####[facility] SYSTEMWNCLIA [id number] [place] [address] [place] Anion gap [Moles/Vol] 11 mmol/L Normal 8-15 [facility] Comment on above: Order Comment: Speci men Type: BLOOD SPECIMENOrdering Facility: [facility] Address: [address] [place] [address] Performed By: #### 1 9123-9, 26953-7 ####[facility] SYSTEMWNCLIA [id number] [place] [address] [place] AST [Catalytic activity/Vol] 17 U/L Normal 13-35 [facility] Comment on above: Order Comment: Speci men Type: BLOOD SPECIMENOrdering Facility: [facility] Address: [address] [place] [address] Performed By: #### 1 9123-9, 90246-7 ####[facility] MILLTOWNCLIA [id number] [place] [address] [place] Bilirubin [Mass/Vol] 0.3 mg/dL Normal 0.2-1.3 [facility] Comment on above: Order Comment: Speci men Type: BLOOD SPECIMENOrdering Facility: [facility] Address: [address] [place] [address] Performed By: #### 1 9123-9, 03997-2 ####[facility] MILLTOWNCLIA [id number] [place] [address] [place] Calcium [Mass/Vol] 9.0 mg/dL Normal 8.5-10.2 [facility] Comment on above: Order Comment: Speci men Type: BLOOD SPECIMENOrdering Facility: [facility] Address: [address] [place] [address] Performed By: #### 1 9123-9, 15686-8 ####[facility] SYSTEMWNCLIA [id number] [place] [address] [place] Chloride [Moles/Vol] 104 mmol/L Normal 98-107 [facility] Comment on above: Order Comment: Speci men Type: BLOOD SPECIMENOrdering Facility: [facility] Address: [address] [place], [place] [id number] Performed By: #### 1 9123-9, ####[facility] MILLTOWNCLIA [id number] [place] [address] [place] CO2 [Moles/Vol] 26 mmol/L Normal 22-30 [facility] Comment on above: Order Comment: Speci men Type: BLOOD SPECIMENOrdering Facility: [facility] Address: [address] [place] [address] Performed By: #### 1 9123-9, 71591-3 ####[facility]ITALNCLIA [id number] [place] [address] [place] Creatinine [Mass/Vol] 0.79 mg/dL Normal 0.58-0.96 [facility] Comment on above: Order Comment: Taran acevedo Type: BLOOD SPECIMENOrdering Facility: [facility] Address: [address] [place] [address] Performed By: #### 1 9123-9, 04049-1 ####[facility] [id number] [place] [address] [place] Creatinine and Glomerular filtration rate.predicted panel (S/P/Bld) 82 mL/min/1.73m??? Normal >=60 [facility] Comment on above: Order Comment: Taran acevedo Type: BLOOD SPECIMENOrdering Facility: [facility] Address: [address] [place] [address] Result Comment: Richa mated Glomerular Filtration Rate [...] actual GFR. Performed By: #### 1 9123-9, 81821-5 ####[facility] HOSPITALLIA [id number] [place] [address] [place] Glucose [Mass/Vol] 115 mg/dL High 74-99 [facility] Comment on above: Order Comment: Spectina men Type: BLOOD SPECIMENOrdering Facility: [facility] Address: [address] [id number] Result Comment: The [place] Diabetes Association (ADA) provides guidance for cutoff [...] Standards of Medical Care in Diabetes 2016, [place] Diabetes Association. Diabetes Care. 2016.39(Suppl 1). Performed By: #### 1 9123-9, ####[facility] MILLTOWGREYSONLIA [id number] [place] [address] [place] Potassium [Moles/Vol] 4.0 mmol/L Normal 3.7-5.1 [facility] Comment on above: Order Comment: Speci men Type: BLOOD SPECIMENOrdering Facility: [facility] Address: [address] [place] [address] Performed By: #### 1 91239, ####[facility] SYSTEMWGREYSONLIArt [id number] [place] [address] [place] Protein [Mass/Vol] 6.6 g/dL Normal 6.3-8.0 [facility] Comment on above: Order Comment: Speci men Type: BLOOD SPECIMENOrdering Facility: [facility] Address: [address] [place] [address] Performed By: #### 1 9123-9, ####[facility] SYSTEMWGREYSONLIA [id number] [place] [address] [place] Sodium [Moles/Vol] 141 mmol/L Normal 136-144 [facility] Comment on above: Order Comment: Speci men Type: BLOOD SPECIMENOrdering Facility: [facility] Address: [address] [place] [address] Performed By: #### 1 9123-9, ####[facility] SYSTEMWGREYSONLIA [id number] [place] [address] [place] Urea nitrogen [Mass/Vol] 15 mg/dL Normal 7-21 [facility] Comment on above: Order Comment: Taran acevedo Type: BLOOD SPECIMENOrdering Facility: [facility] Address: [address] [place] [address] Performed By: #### 1 9123-9, 63195-3 ####[facility] [id number] [place] [address] [place] HbA1c (Bld)on 04-06-2025 Average glucose Estimated from glycated hemoglobin (Bld) [Mass/Vol] 160 mg/dL Normal [facility] Comment on above: Order Comment: Taran acevedo Type: BLOOD SPECIMENOrdering Facility: [facility] Address: [address] [place] [address] Result Comment: eAG: (Estimated average glucose) is a calculated value from HgbA1c and is pharmacy services representative of the average blood glucose level in the last 2-3 month period. Performed By: #### 5 5454-3 ####[facility] LABCLIA [id number] [place] [address] [place] HbA1c (Bld) [Mass fraction] 7.2 % High 4.3-5.6 [facility] Comment on above: Order Comment: Taran acevedo Type: BLOOD SPECIMENOrdering Facility: [facility] Address: [address] [place] [address] Result Comment: Amer [place] Diabetes Association guidelines indicate that patients with HgbA1c in the range 5.7-6.4% are at increased risk for development of diabetes, and intervention by lifestyle modification may be beneficial. HgbA1c greater or equal to 6.5% is considered diagnostic of diabetes. Performed By: #### 5 5454-3 ####[facility] LABCLIA [id number] [place] [id number] [place] LIPID PANEL, NONFASTINGon Cholesterol [Mass/Vol] 152 mg/dL Normal <200 [facility] Comment on above: Order Comment: Taran acevedo Type: BLOOD SPECIMENOrdering Facility: [facility] Address: [address] [place] [address] Result Comment: <200 mg/dL, Desirable 200-239 mg/dL, Borderline high >239 mg/dL, High Performed By: #### 2 132-9, 3016-3, LIPNF ####[facility] LABCLIA [id number] [facility] [id number] [place], [place] [address] [place] HDL CHOLESTEROL, NF 38 mg/dL Low >39 [facility] Comment on above: Order Comment: Speci men Type: BLOOD SPECIMENOrdering Facility: [facility] Address: [address] [place] [address] Result Comment: 40-5 9 mg/dL, Acceptable >59 mg/dL, High: Negative risk factor for coronary heart disease <40 mg/dL, Low: Positive risk factor for coronary heart disease Performed By: #### 2 132-9, 3016-3, LIPNF ####[facility] LABCLIA [id number] [address] [place] LDL CHOLESTEROL CALCULATED, NF 94 mg/dL Normal <100 [facility] Comment on above: Order Comment: Speci men Type: BLOOD SPECIMENOrdering Facility: [facility] Address: [address] [place] [address] Result Comment: <100 mg/dL, Optimal 100-129 mg/dL, Near optimal/above optimal 130-159 mg/dL, Borderline high 160-189 mg/dL, High >189 mg/dL, Very high Secondary prevention optimal LDL Cholesterol levels are recommended to be <70 mg/dL LDL cholesterol is calculated using the Silverio-NIH equation. Performed By: #### 2 132-9, 3016-3, LIPNF ####[facility] LABCLIA [id number] [place] [id number] [place] LDL/HDL RATIO, NF 2.47 mg/dL Normal <2.54 [facility] Comment on above: Order Comment: Speci men Type: BLOOD SPECIMENOrdering Facility: [facility] Address: [address] [place] [address] Result Comment: Michaelle mayes: 1. National Cholesterol Education Program ATP III Guideline At-A-Glance Quick Desk Reference: National Heart, Lung, and Blood [place]. National Institutes of Health. 2001: NIH Publication No. 01-3305. 2. An International Atherosclerosis Society position paper: global recommendations for the management of dyslipidemia: executive summary, Atherosclerosis. 2014: 232(2):410-413. Performed By: #### 2 132-9, 3016-3, LIPNF ####[facility] LABCLIA [id number] [place] [address] [place] NON HDL CHOL, NF 114 mg/dL Normal <130 [facility] Comment on above: Order Comment: Speci men Type: BLOOD SPECIMENOrdering Facility: [facility] Address: [address] [place] [address] Result Comment: <130 mg/dL, Optimal 130-159 mg/dL, Near optimal/above optimal 160-189 mg/dL, Borderline high 190-219 mg/dL, High >219 mg/dL, Very high Secondary prevention optimal non HDL Cholesterol levels are recommended to be <100 mg/dL Performed By: #### 2 132-9, 3016-3, LIPNF ####[facility] LABCLIA [id number] [place] [address] [place] T CHOL/HDL RATIO NF 4.00 mg/dL Normal <5.10 [facility] Comment on above: Order Comment: Speci men Type: BLOOD SPECIMENOrdering Facility: [facility] Address: [address] [place] [address] Performed By: #### 2 132-9, 3016-3, LIPNF ####[facility] LABCLIA [id number] [place] [id number] [place] TRIGLYCERIDES, NF 106 mg/dL Normal <150 [facility] Comment on above: Order Comment: Speci men Type: BLOOD SPECIMENOrdering Facility: [facility] Address: [address] [place] [address] Result Comment: <150 mg/dL, Normal 150-199 mg/dL, Borderline high 200-499 mg/dL, High >499 mg/dL, Very high Performed By: #### 2 132-9, 3016-3, LIPNF ####[facility] LABCLIA [id number] [place] [address] [place] VLDL CHOLESTEROL, NF 17 mg/dL Normal <30 [facility] Comment on above: Order Comment: Speci men Type: BLOOD SPECIMENOrdering Facility: [facility] Address: [address] [place] [address] Performed By: #### 2 132-9, 3016-3, LIPNF ####[facility] LABCLIA [id number] [place] [address] [place] Magnesium SerPl-mCncon 04-06 Magnesium [Mass/Vol] 1.6 mg/dL Low 1.7-2.3 [facility] Comment on above: Order Comment: Speci men Type: BLOOD SPECIMENOrdering Facility: [facility] Address: [address] [place] [address] Performed By: #### 1 9123-9, 99322-9 ####[facility] [id number] [place] [address] [place] TSH SerPl-aCncon 04-06-2025 TSH Qn 3.870 m[IU]/L Normal 0.270-4.200 [facility] Comment on above: Order Comment: Speci men Type: BLOOD SPECIMENOrdering Facility: [facility] Address: [address] [place] [address] Performed By: #### 2 132-9, 3016-3, LIPNF ####[facility] LABCLIA [id number] [place] [id number] [place] Urinalysis complete panel (U )on 04-06-2025 BACTERIA UL 1513.2 uL High Negative [facility] Comment on above: Order Comment: Speci men Type: URINE SPECIMENOrdering Facility: [facility] Address: [address] [place] [address] Performed By: #### 2 4356-8 ####[facility] LABCLIA [id number] [address], [facility]95 [place] Bilirubin Ql (U) Negative Normal Negative [facility] Comment on above: Order Comment: Speci men Type: URINE SPECIMENOrdering Facility: [facility] Address: [address] [place] [address] Performed By: #### 2 4356-8 ####[facility] LABCLIA [id number] [place] [address] [place] Clarity (Unsp spec) Clear Normal Clear [facility] Comment on above: Order Comment: Speci men Type: URINE SPECIMENOrdering Facility: [facility] Address: [address] [place] [address] Performed By: #### 2 4356-8 ####[facility] LABCLIA [id number] [place] [address] [place] Color (U) Yellow Normal Yellow [facility] Comment on above: Order Comment: Speci men Type: URINE SPECIMENOrdering Facility: [facility] Address: [address] [place] [address] Performed By: #### 2 4356-8 ####[facility] LABCLIA [id number] [place] [id number] [place] Epithelial cells LM.HPF (Urine sed) [#/Area] Moderate Normal [facility] Comment on above: Order Comment: Speci men Type: URINE SPECIMENOrdering Facility: [facility] Address: [address] [place] [address] Performed By: #### 2 4356-8 ####[facility] LABCLIA [id number] [place] [id number] [place] Glucose Test strip (U) [Mass/Vol] Negative Normal Negative [facility] Comment on above: Order Comment: Speci men Type: URINE SPECIMENOrdering Facility: [facility] Address: [address] [place] [address] Performed By: #### 2 4356-8 ####[facility] LABCLIA [id number] [place] [address] [place] Hemoglobin Ql (U) Negative Normal Negative [facility] Comment on above: Order Comment: Speci men Type: URINE SPECIMENOrdering Facility: [facility] Address: [address] [place] [address] Performed By: #### 2 4356-8 ####[facility] LABCLIA [id number] [place] [address] [place] Hyaline casts (Urine sed) [#/Area] 0 /[LPF] Normal 0 /LPF [facility] Comment on above: Order Comment: Speci men Type: URINE SPECIMENOrdering Facility: [facility] Address: [address] [place] [address] Performed By: #### 2 4356-8 ####[facility] LABCLIA [id number] [place] [address] [place] Ketones Ql (U) Negative Normal Negative [facility] Comment on above: Order Comment: Speci men Type: URINE SPECIMENOrdering Facility: [facility] Address: [address] [place] [address] Performed By: #### 2 4356-8 ####[facility] LABCLIA [id number] [place] [address] [place] Leukocyte esterase Test strip Ql (U) 3+ Abnormal Negative [facility] Comment on above: Order Comment: Speci men Type: URINE SPECIMENOrdering Facility: [facility] Address: [address] [place] [address] Performed By: #### 2 4356-8 ####[facility] LABCLIA [id number] [address], [facility]95 [place] Nitrite Ql (U) Negative Normal Negative [facility] Comment on above: Order Comment: Speci men Type: URINE SPECIMENOrdering Facility: [facility] Address: [address] [place] [address] Performed By: #### 2 4356-8 ####[facility] LABIA [id number] [address], [place] [address] [place] pH (U) 7.0 [pH] Normal <8.5 [facility] Comment on above: Order Comment: Speci men Type: URINE SPECIMENOrdering Facility: [facility] Address: [address] [place] [address] Performed By: #### 2 4356-8 ####[facility] LABIA [id number] [address], [place] [address] [place] Protein (U) [Mass/Vol] Negative Normal Negative [facility] Comment on above: Order Comment: Speci men Type: URINE SPECIMENOrdering Facility: [facility] Address: [address] [place] [address] Performed By: #### 2 4356-8 ####[facility] LABIA [id number] [address], [place] [address] [place] RBC LM.HPF (Urine sed) [#/Area] 0-2 /HPF Normal 0-2 /HPF [facility] Comment on above: Order Comment: Speci men Type: URINE SPECIMENOrdering Facility: [facility] Address: [address] [place] [address] Performed By: #### 2 4356-8 ####[facility] LABIA [id number] [place] [address] [place] Specific gravity (U) [Rel density] 1.014 Normal 1.005-1.030 [facility] Comment on above: Order Comment: Speci men Type: URINE SPECIMENOrdering Facility: [facility] Address: [address] [place] [address] Performed By: #### 2 4356-8 ####[facility] LABIA [id number] [place] [address] [place] Urobilinogen Ql (U) 0.2 EU/dL Normal 0.2-1.0 EU/dL Cl [facility] Comment on above: Order Comment: Speci men Type: URINE SPECIMENOrdering Facility: [facility] Address: [address] [place] [address] Performed By: #### 2 4356-8 ####[facility] [id number] [place] [address] [place] WBC LM.HPF (Urine sed) [#/Area] 11-20 /HPF Abnormal 0-5 /HPF [facility] Comment on above: Order Comment: Speci men Type: URINE SPECIMENOrdering Facility: [facility] Address: [address] [place] [address] Performed By: #### 2 4356-8 ####[facility] [id number] [place] [address] [place] Vit B12 SerPl-ncon 05-30-2 025 Cobalamin (Vitamin B12) [Mass/Vol] 609 pg/mL Normal 232-1245 [facility] Comment on above: Order Comment: Speci men Type: BLOOD SPECIMENOrdering Facility: [facility] Address: [address] [place] [address] Performed By: #### 2 132-9, 3016-3, LIPNF ####[facility] [id number] [place] [address] [place] CNOVSPon 03-21-2025 CNOVSP Visit (SP) Office ([facility]) DOM AVILA ([id number]) 1955 F Date Time Provider Department 03/21/25 8:00 AM CHAD MARIEE During your visit today, we recorded the following information about you: Temperature Pulse Blood pressure Weight 97.6 degrees 63/minute 163/88 65.2 kg Chad Mariee APRN.GYMNASIUM TEACHER 03/22/2025 1:28 PM Signed Chief Complaint Patient presents with: Established Patient HPI: Dmo Avila is a 69 year old female who presents here today for follow up DCIS. Per Dr. Georges previous note: H/o vbq-yurxdfr-qosziwoxl diabetes mellitus, hypertension, ASCAD, and TIA who [...] breast lumpectomy for DCIS on 04/08/2021 at [facility] Pathology (from [facility]) reveals - ductal carcinoma in situ...,size of DCIS - 1.0 x 0.4 cm...,architectural type - cribriform..., nuclear grade 1-2..., necrosis - present central (expansive comedo necrosis)..., biopsy cavity is 0.5 cm from closest anterior margin (which is skin)..., ER >95%, RI >95% Postoperative course is unremarkable with no [...] Skin:denies rashes/lesions Heme:denies bleeding, over due for BRASS RECLAIMER exam The ROS is otherwise negative. Past [...] March 2026. - Continue follow up with PCP/GI/Cards/BRASS RECLAIMER. - Needs follow up/yearly pelvic with [facility]ASS RECLAIMER-Marck Dumont CNP. - Follow up in 6 months. - Pt. aware to call office with any questions/concerns. The patient indicates understanding of these issues and agrees with the plan. All documentation from previous visit of 09/14/24-Dr. Georges/myself was copied and pasted, documentation has been reviewed and edited as necessary for today's visit. Chad Mariee APRN.GYMNASIUM TEACHER Referring Provider: CHAD MARIEE [[id number]] Allergies As of Date: 03/21/2025 Noted Allergy Reaction BRILINTA (TICAGRELOR) 06/28/2017 12 - Shortness of Breath CRESTOR (ROSUVASTATIN) 04/10/2020 17 - Myalgia KEFLEX (CEPHALEXIN) 02/02/2006 14 - Other: See Comments Comments: facial flushing LIPITOR (ATORVASTATIN) 07/21/2013 14 - Other: See Comments Comments: myalgia LOVASTATIN (more content not included)... 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 Cataract Colon polyp 2011 Controlled type 2 diabetes mellitus without complication, without long-term current use of insulin ([facility]) 10/22/2016 De Quervain's tenosynovitis, left 07/31/2019 [...] [place] Type 2 diabetes mellitus with hyperlipidemia ([facility]) 04/17/2024 Vitamin D deficiency 2013 Well adult exam 01/16/2016 Last done: 09/08/2018 Surgical History: PAST SURGICAL HISTORY Procedure Laterality Date 2D ECHO (EXEP) 06/30/2017 EF=65%, trivial CO, TI and 1+ PI Unchanged from 04/2017 2D ECHO (EXEP) 05/14/2021 EF=60%, 1+ TI, trival CO, AI, PI 2D ECHO (EXEP) 09/16/2021 EF=60%, [...] HEART CATHETERIZ (more content not included)... Normal [facility] DBT Breast - bilateral scree ningon 03-14-2025 [...] Yennifer Fonseca D.O. Electronically signed on: 03/14/2025 Double Cutter: [email or web address] Transcribe Date/Time: Mar 14 2025 7:21A Dictated by: YENNIFER FONSECA DO This examination was interpreted and the report reviewed and electronically signed by: DANIEL MARINELLI MD on Mar 14 2025 1:29PM [facility] DIVISION OF RADIOLOGY * * *Final Report* * * DATE OF EXAM: Mar 14 2025 7:35AM [facility] 0582 - GUILLERMINA SCREENING W ANGELA / PROCEDURE REASON: multiple diagnoses * * * * Physician Interpretation * * * * RESULT: [place] [address] #[id number] - GUILLERMINA SCREENING W ANGELA HISTORY: 69 [...] in either breast. DIVISION OF RADIOLOGY Provider, [facility] - 03/14/2025 * * *Final Report* * * DATE OF EXAM: Mar 14 2025 7:35AM [facility] 0582 - GUILLERMINA SCREENING W AGNELA / PROCEDURE REASON: multiple diagnoses * * * * Physician Interpretation * * * * RESULT: [place] [address] #[id number] - GUILLERMINA SCREENING W ANGELA HISTORY: 69 [...] Yennifer Fonseca D.O. Electronically signed on: 03/14/2025 Double Cutter: ARINA Transcribe Date/Time: May 7 2025 7:21A Dictated by: YENNIFER FONSECA DO This examination was interpreted and the report reviewed and electronically signed by: DANIEL MARINELLI MD on Mar 14 2025 1:29PM EST [facility] Radiology Study observation (narrative) [facility] DBT Breast - bilateral scree ningOrdered By: Ccf Provider on 03-14-2025 [facility] GUILLERMINA SCREENING W TOMOon 03-14 GUILLERMINA SCREENING W ANGELA * * *Final Report* * * DATE OF EXAM: Mar 14 2025 7:35AM [facility] 0582 - GUILLERMINA SCREENING W ANGELA / PROCEDURE REASON: multiple diagnoses * * * * Physician Interpretation * * * * RESULT: [facility] [address] [place] [address] #[id number] - GUILLERMINA SCREENING W ANGELA HISTORY: 69 [...] Yennifer Fonseca D.O. Electronically signed on: 03/14/2025 Double Cutter: ARINA Artisrimary kay Date/Time: Mar 14 2025 7:21A Dictated by: YENNIFER FONSECA, DO This examination was interpreted and the report reviewed and electronically signed by: DANIEL MARINELLI MD on Mar 14 2025 1:29PM EST [id number] Normal [facility] ACTH Plas-mCncon 02-21-2025 Corticotropin (P) [Mass/Vol] 1.9 pg/mL Low 7.2-63.3 [facility] Comment on above: Order Comment: Taran acevedo Type: BLOOD SPECIMENOrdering Facility: [facility] Address: [address] [place] [address] Result Comment: ACTH Reference Range: 7-10 am: 7.2 - 63.3 pg/mL Performed By: #### 2 141-0 ####[facility] LABCLIA [id number] [place] [address] [place] Cortis p Dex SerPl-[facility] Cortisol post dose dexamethasone [Mass/Vol] 0.7 ug/dL Normal <1.8 [facility] Comment on above: Order Comment: Taran acevedo Type: BLOOD SPECIMENOrdering Facility: [facility] Address: [address] [place] [address] Result Comment: Afte r overnight 1 mg dexamethasone, an can patcher cortisol of <1.8 ug/dL may indicate an adequate cortisol suppression. This result should be interpreted within the clinical context and other test results. Dahlia et al. Evidence for the Low Dose Dexamethasone Suppression Test to Screen for Cher's Syndrome - Recommendations for a Protocol for Biochemistry Laboratories. 1997 Diamond. Clin. Biochem. 34 222-229. Performed By: #### 4 7851-1 ####[facility] LABCLIA [id number] [place] [address] [place] DEXAMETHASONEon 02-21-2025 DEXAMETHASONE 327.4 ng/dL Normal [facility] Comment on above: Order Comment: Speci men Type: BLOOD SPECIMENOrdering Facility: [facility] Address: [address] [place] [address] Result Comment: INTE RPRETIVE INFORMATION: Dexamethasone, Serum [...] developed and its performance characteristics determined by [facility]. It has not been cleared or approved by the US Food and Drug Administration. This test was performed in a CLIA certified laboratory and is intended for clinical purposes. Performed By: [facility] [address] [place] [address] Public Health Service Officer: Jason Shore MD, PhD CLIA Number: [id number] Performed By: #### D EXA ####[facility], HILLCRESTIA [id number] [place] [address] CNOVon 02-19-2025 CNOV Office Visit (URUN) DOM AVILA ([id number]) 1955 F Date Time Provider Department 02/19/25 8:40 AM ORI LORD URTIERNEY During your visit today, we recorded the following information about you: Pulse Blood pressure 65/minute 164/80 Ori Lord DO 02/19/2025 9:18 AM Signed [facility] ESTABLISHED PATIENT NOTE/HISTORY AND PHYSICAL PATIENT: Dom Vel Avila (69 year old) PCP: Clifton Hung MD DATE OF SERVICE: 02/19/2025 SUBJECTIVE: CHIEF COMPLAINT: Follow Up (6 mo f/u. Patient has no new complaints and denies any urinary issues. ) HISTORY OF PRESENT ILLNESS: Recording using [employer] software for draft documentation of the visit was discussed with the patient/authorized pharmacy services representative; all questions welcomed and answered. Patient/authorized pharmacy services representative agreed to proceed The patient was [...] scheduled and a follow-up appointment with her shuttle hand on March 16. 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 Has been on provigil for 5-10 yrs Obstructive sleep apnea on CPAP Sibilia Other skin changes 09/26/2021 Seeing derm Pancreatic insufficiency ([facility]) 04/08/[address] Ortiz [place] RLS (restless [...] Date 2D ECHO (EXEP) 06/30/2017 EF=65%, trivial CO, TI and 1+ PI Unchanged from 04/2017 2D ECHO (EXEP) 05/14/2021 EF=60%, 1+ TI, trival CO, AI, PI 2D ECHO (EXEP) 09/16/2021 EF=60%, [...] CATHETERIZATION 10/09 (more content not included)... 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 CABG Diabetes Father Di (more content not included)... Normal [facility] ACTH Plas-mCncon 11-07-2024 Corticotropin (P) [Mass/Vol] 28.4 pg/mL Normal 7.2-63.3 [facility] Comment on above: Order Comment: Speci men Type: BLOOD SPECIMENOrdering Facility: [facility] Address: [address] [place] [address] Result Comment: ACTH Reference Range: 7-10 am: 7.2 - 63.3 pg/mL Performed By: #### 2 141-0 ####[facility] LABCLIA [id number] [place] [address] [place] CREATININE, 24 HOUR URINEon 11-07-2024 Creatinine (24H U) [Mass/Time] 0.786 g/24 hr Low 0.800-1.800 [facility] Comment on above: Order Comment: Speci men Type: URINE SPECIMENOrdering Facility: [facility] Address: [address] [place] [address] Performed By: #### U CRD ####[facility] LABCLIA [id number] [place] [address] [facility] [id number] [place] [address] [place] PERIOD (HRS) 24 hr Normal [facility] Comment on above: Order Comment: Speci men Type: URINE SPECIMENOrdering Facility: [facility] Address: [address] [place] [address] Performed By: #### U CRD ####[facility] LABCLIA [id number] [place] [address] [facility] [id number] [place] [address] [place] Specimen volume (24H U) 1.95 L Normal [facility] Comment on above: Order Comment: Speci men Type: URINE SPECIMENOrdering Facility: [facility] Address: [address] [place] [address] Performed By: #### U CRD ####[facility] LABCLIA [id number] [place] [address] OF [facility] [id number] [place] [id number] [place] [address] OF [facility] URINE FREE CORTISOL BY LC-MS /MSon 11-07-2024 CORTISOL UG/G STOCK ROLLER, UR (UFRCRT) 16.32 ug/g STOCK ROLLER Normal [facility] Comment on above: Order Comment: Speci men Type: URINE SPECIMENOrdering Facility: [facility] Address: [address] [place] [address] Result Comment: Refe rence Interval: Cortisol ug/g applications support analyst Female Prepubertal: Less than 25 ug/g applications support analyst 18 years and older: Less than 24 ug/g applications support analyst : Less than 59 ug/g applications support analyst Male Prepubertal: Less than 25 ug/g applications support analyst 18 years and older: Less than 32 ug/g applications support analyst Performed By: #### U FRCRT ####[facility]IESCLIA [id number] [place] [address] CREATININE, URINE PER 24H 800 mg/d Normal 500-1400 [facility] Comment on above: Order Comment: Speci men Type: URINE SPECIMENOrdering Facility: [facility] Address: [address] [place] [address] Performed By: #### U FRCRT ####[facility]ORATORIESCLIA [id number] [place] [address] CREATININE, URINE PER VOLUME 41 mg/dL Normal [facility] Comment on above: Order Comment: Speci men Type: URINE SPECIMENOrdering Facility: [facility] Address: [address] [place] [address] Performed By: #### U FRCRT ####[facility]ORATORIESCLIA [id number] [place] [address] FREE CORTISOL UG/DAY, URINE 13.0 ug/d Normal <=45.0 [facility] Comment on above: Order Comment: Speci men Type: URINE SPECIMENOrdering Facility: [facility] Address: [address] [place] [address] Performed By: #### U FRCRT ####[facility]IESCLIA [id number] [place] [address] FREE CORTISOL UG/L, URINE 6.69 ug/L Normal [facility] Comment on above: Order Comment: Speci men Type: URINE SPECIMENOrdering Facility: [facility] Address: [address] [place] [address] Performed By: #### U FRCRT ####[facility]IESCLIA [id number] [place] [address] HOURS COLLECTED 24 hr Normal [facility] Comment on above: Order Comment: Speci men Type: URINE SPECIMENOrdering Facility: [facility] Address: [address] [place] [address] Result Comment: Per 24h calculations are provided to aid interpretation for collections with a duration of 24 hours and an average daily urine volume. For specimens with notable deviations in collection time or volume, ratios of analytes to a corresponding urine creatinine concentration may assist in result interpretation. Performed By: #### U FRCRT ####[facility]IESCLIA [id number] [place] [address] TOTAL VOLUME 1950 mL Normal [facility] Comment on above: Order Comment: Speci men Type: URINE SPECIMENOrdering Facility: [facility] Address: [address] [place] [address] Performed By: #### U FRCRT ####[facility]ORATORIESCLIA [id number] [place] [address] UR DYAN FREE INTERP See Note Normal [facility] Comment on above: Order Comment: Speci men Type: URINE SPECIMENOrdering Facility: [facility] Address: [address] [place] [address] Result Comment: INTE RPRETIVE INFORMATION: Cortisol Urine Free by LC-MS/MS Access complete set of age- and/or gender-specific reference intervals for this test in the [facility] Test Directory ([employer]). This test was developed and its performance characteristics determined by [facility]. It has not been cleared or approved by the US Food and Drug Administration. This test was performed in a CLIA certified laboratory and is intended for clinical purposes. 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 Normal [facility] Cardiology Visit Reporton Cardiology Visit Report [facility] [address] [place] [address] OFFICE VISIT Date of Service: 10/23/24 MR#: [id number] Acct: [id number] Name: DOM AVILA Rep #: [id number] : 1955 Provider: NEGRO valladares Age/Sex: 69/F Location: [facility] Status: Signed HPI HPI History of [...] air Intake Visit Reasons: 6 M FU Sensitizer Required: No Accompanied by: Self Is patient [...] mg PO DAILY 11/30/22 10/23/24 History release jbbseh-rziryaew-ewrzid e See Rx Instructions PO .COMPLEX 03/04/23 [...] syndrome) Hi (more content not included)... [facility] Office Visit (FAMPWS ) AUSTINDOM K ([id number]) 1955 F Date Time Provider Department 10/18/24 [...] last visit 09/2024 Patient sees Cardiology - [facility] last visit 04/2024 Past medical history, appointments, medications, allergies reviewed. 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 Normal [facility] 25([place])D3 [facility] 25-hydroxyvitamin D3 [Mass/Vol] 34.7 ng/mL Normal 31.0-80.0 [facility] Comment on above: Order Comment: Speci men Type: BLOOD SPECIMENOrdering Facility: [facility] Address: [address] [place] [address] Result Comment: Clas sification of 25 [place] Vitamin D status: Deficiency/Insufficiency: < or = 30 ng/ml. Sufficiency/Optimal Levels: 31-80 ng/mL Toxicity: > 100 ng/mL. Test performed by chemiluminescent immunoassay. Performed By: #### 1 989-3 ####[facility] LABCLIA [id number] [place] [address] [place] Basic metabolic 2000 panelon 10-14-2024 Anion gap [Moles/Vol] 10 mmol/L Normal 8-15 [facility] Comment on above: Order Comment: Speci men Type: BLOOD SPECIMENOrdering Facility: [facility] Address: [address] [place] [address] Performed By: #### 2 4321-2, LIPNF ####[facility] LABIA [id number] [place] [address] [place] Calcium [Mass/Vol] 9.2 mg/dL Normal 8.5-10.2 [facility] Comment on above: Order Comment: Speci men Type: BLOOD SPECIMENOrdering Facility: [facility] Address: [address] [place] [address] Performed By: #### 2 4321-2, LIPNF ####[facility] LABCLIA [id number] [place] [address] [place] Chloride [Moles/Vol] 104 mmol/L Normal 98-107 [facility] Comment on above: Order Comment: Speci men Type: BLOOD SPECIMENOrdering Facility: [facility] Address: [address] [place] [address] Performed By: #### 2 4321-2, LIPNF ####[facility] LABCLIA [id number] [place] [address] [place] CO2 [Moles/Vol] 28 mmol/L Normal 22-30 [facility] Comment on above: Order Comment: Speci men Type: BLOOD SPECIMENOrdering Facility: [facility] Address: [address] [place] [address] Performed By: #### 2 4321-2, LIPNF ####[facility] LABCLIA [id number] [place] [address] [place] Creatinine [Mass/Vol] 0.79 mg/dL Normal 0.58-0.96 [facility] Comment on above: Order Comment: Speci men Type: BLOOD SPECIMENOrdering Facility: [facility] Address: [address] [place] [address] Performed By: #### 2 4321-2, LIPNF ####[facility] LABCLIA [id number] [place] [address] [place] [facility] Creatinine and Glomerular filtration rate.predicted panel (S/P/Bld) 82 mL/min/1.73m??? Normal >=60 [facility] Comment on above: Order Comment: Speci men Type: BLOOD SPECIMENOrdering Facility: [facility] Address: [address] [place] [address] Result Comment: Richa mated Glomerular Filtration Rate [...] GFR. Performed By: #### 2 4321-2, LIPNF ####[facility] LABCLIA [id number] [place] [address] [place] Glucose [Mass/Vol] 103 mg/dL High 74-99 [facility] Comment on above: Order Comment: Speci men Type: BLOOD SPECIMENOrdering Facility: [facility] Address: [address] [place] [address] Result Comment: The [place] Diabetes Association (ADA) provides guidance for cutoff [...] Standards of Medical Care in Diabetes 2016, [place] Diabetes Association. Diabetes Care. 2016.39(Suppl 1). Performed By: #### 2 4321-2, LIPNF ####[facility] LABCLIA [id number] [place] [address] [place] Potassium [Moles/Vol] 4.2 mmol/L Normal 3.7-5.1 [facility] Comment on above: Order Comment: Speci men Type: BLOOD SPECIMENOrdering Facility: [facility] Address: [address] [place] [address] Performed By: #### 2 4321-2, LIPNF ####[facility] LABCLIA [id number] [place] [address] [place] Sodium [Moles/Vol] 142 mmol/L Normal 136-144 [facility] Comment on above: Order Comment: Speci men Type: BLOOD SPECIMENOrdering Facility: [facility] Address: [address] [place] [address] Performed By: #### 2 4321-2, LIPNF ####[facility] LABCLIA [id number] [place] [address] [place] Urea nitrogen [Mass/Vol] 18 mg/dL Normal 7-21 [facility] Comment on above: Order Comment: Speci men Type: BLOOD SPECIMENOrdering Facility: [facility] Address: [address] [place] [address] Performed By: #### 2 4321-2, LIPNF ####[facility] LABCLIA [id number] [address] OF [facility] HbA1c (Bld)on 10-14-2024 Average glucose Estimated from glycated hemoglobin (Bld) [Mass/Vol] 131 mg/dL Normal [facility] Comment on above: Order Comment: Taran acevedo Type: BLOOD SPECIMENOrdering Facility: [facility] Address: [address] [place] [address] Result Comment: eAG: (Estimated average glucose) is a calculated value from HgbA1c and is pharmacy services representative of the average blood glucose level in the last 2-3 month period. Performed By: #### 5 5454-3 ####[facility] LABIA [id number] [address] HbA1c (Bld) [Mass fraction] 6.2 % High 4.3-5.6 [facility] Comment on above: Order Comment: Taran aecvedo Type: BLOOD SPECIMENOrdering Facility: [facility] Address: [address] [place] [address] Result Comment: Amer [place] Diabetes Association guidelines indicate that patients with HgbA1c in the range 5.7-6.4% are at increased risk for development of diabetes, and intervention by lifestyle modification may be beneficial. HgbA1c greater or equal to 6.5% is considered diagnostic of diabetes. Performed By: #### 5 5454-3 ####[facility] LABIA [id number] [address] OF [place] LIPID PANEL, NONFASTINGon Cholesterol [Mass/Vol] 202 mg/dL High <200 [facility] Comment on above: Order Comment: Taran acevedo Type: BLOOD SPECIMENOrdering Facility: [facility] Address: [address] [place] [address] Result Comment: <200 mg/dL, Desirable 200-239 mg/dL, Borderline high >239 mg/dL, High Performed By: #### 2 4321-2, LIPNF ####[facility] LABCLIA [id number] [place] [address] [place] HDL CHOLESTEROL, NF 45 mg/dL Normal >39 [facility] Comment on above: Order Comment: Taran acevedo Type: BLOOD SPECIMENOrdering Facility: [facility] Address: [address] [place] [address] Result Comment: 40-5 9 mg/dL, Acceptable >59 mg/dL, High: Negative risk factor for coronary heart disease <40 mg/dL, Low: Positive risk factor for coronary heart disease Performed By: #### 2 4321-2, LIPNF ####[facility] LABCLIA [id number] [place] [address] [place] LDL CHOLESTEROL, NF 138 mg/dL High <100 [facility] Comment on above: Order Comment: Taran acevedo Type: BLOOD SPECIMENOrdering Facility: [facility] Address: [address] [place] [address] Result Comment: <100 mg/dL, Optimal 100-129 mg/dL, Near optimal/above optimal 130-159 mg/dL, Borderline high 160-189 mg/dL, High >189 mg/dL, Very high Secondary prevention optimal LDL Cholesterol levels are recommended to be < 70 mg/dL Performed By: #### 2 4321-2, LIPNF ####[facility] LABCLIA [id number] [place] [address] [place] LDL/HDL RATIO, NF 3.07 mg/dL High <2.54 [facility] Comment on above: Order Comment: Taran acevedo Type: BLOOD SPECIMENOrdering Facility: [facility] Address: [address] [place] [address] Result Comment: Michaelle mayes: 1. National Cholesterol Education Program ATP III Guideline At-A-Glance Quick Desk Reference: National Heart, Lung, and Blood [place]. National Institutes of Health. 2001: NIH Publication No. 01-3305. 2. An International Atherosclerosis Society position paper: global recommendations for the management of dyslipidemia: executive summary, Atherosclerosis. 2014: 232(2):410-413. Performed By: #### 2 4321-2, LIPNF ####[facility] LABCLIA [id number] [place] [address] [place] NON HDL CHOL, NF 157 mg/dL High <130 [facility] Comment on above: Order Comment: Speci men Type: BLOOD SPECIMENOrdering Facility: [facility] Address: [address] [place] [address] Result Comment: <130 mg/dL, Optimal 130-159 mg/dL, Near optimal/above optimal 160-189 mg/dL, Borderline high 190-219 mg/dL, High >219 mg/dL, Very high Secondary prevention optimal non HDL Cholesterol levels are recommended to be <100 mg/dL Performed By: #### 2 4321-2, LIPNF ####[facility] LABCLIA [id number] [place] [address] [place] T CHOL/HDL RATIO NF 4.49 mg/dL Normal <5.10 [facility] Comment on above: Order Comment: Speci men Type: BLOOD SPECIMENOrdering Facility: [facility] Address: [address] [place] [address] Performed By: #### 2 4321-2, LIPNF ####[facility] LABCLIA [id number] [place] [address] [place] TRIGLYCERIDES, NF 94 mg/dL Normal <150 [facility] Comment on above: Order Comment: Speci men Type: BLOOD SPECIMENOrdering Facility: [facility] Address: [address] [place] [address] Result Comment: <150 mg/dL, Normal 150-199 mg/dL, Borderline high 200-499 mg/dL, High >499 mg/dL, Very high Performed By: #### 2 4321-2, LIPNF ####[facility] LABCLIA [id number] [place] [address] [place] VLDL CHOLESTEROL, NF 19 mg/dL Normal <30 [facility] Comment on above: Order Comment: Speci men Type: BLOOD SPECIMENOrdering Facility: [facility] Address: [address] [place] [address] Performed By: #### 2 4321-2, LIPNF ####[facility] LABCLIA [id number] [address] [id number] [id number] [place] CNPNon 10-13-2024 CNPN Telephone (FAMPWS) DOM AVILA ([id number]) 1955 F Date Time Provider Department [facility] your visit today, we recorded [...] Order(s):VITAMIN D 25 HYDROXY [SQVITD] Order #: [id number] FUTURE HEMOGLOBIN A1C [PPYDC8Y] Order #: [id number] FUTURE LIPID PANEL, NONFASTING [SQLIPNF] Order #: [id number] FUTURE BASIC METABOLIC PANEL [SQBMP] Order #: [id number] FUTURE Prescriptions as of 10/13/2024 - dexAMETHasone [...] MG DAILY August 23, 2019 3:27pm - fpncbl-theuyjou-nyjgsd e (CREON 36) 36,000-114,000- 180,000 unit delayed [...] 2 diabetes mellitus without com*10/22/2016 Atherosclerosis of mohegan coronary artery with *01/09/2017 S/P angioplasty with stent [Z95.820] 01/09/2017 Meniere disease, right [H81.01] 10/29/2017 History of transient ischemic attack (TIA) [Z86*10/29/2017 Garibay's cyst of knee, left [M71.22] 03/02/2018 Psoriasis [L40.9] Ductal carcinoma in situ (DCIS) of left breast *05/26/2021 Irritable bowel syndrome with diarrhea [K58.0] 05/26/2021 Foot callus [L84] 05/26/2021 Other skin ramona (more content not included)... Normal [facility] Cortis p Dex SerPl-ncon Cortisol post dose dexamethasone [Mass/Vol] 2.0 ug/dL High <1.8 [facility] Comment on above: Order Comment: Taran acevedo Type: BLOOD SPECIMENOrdering Facility: [facility] Address: [address] [place] [address] Result Comment: Afte r overnight 1 mg dexamethasone, an can patcher cortisol of <1.8 ug/dL may indicate an adequate cortisol suppression. This result should be interpreted within the clinical context and other test results. Dahlia et al. Evidence for the Low Dose Dexamethasone Suppression Test to Screen for [place]'s Syndrome - Recommendations for a Protocol for Biochemistry Laboratories. 1997 Diamond. Clin. Biochem. 34 222-229. Performed By: #### 4 7851-1 ####[facility] LABIA [id number] [place] [address] [place] ACTH [facility] 10-02-2024 Corticotropin (P) [Mass/Vol] 25.6 pg/mL Normal 7.2-63.3 [facility] Comment on above: Order Comment: Taran acevedo Type: BLOOD SPECIMENOrdering Facility: [facility] Address: [address] [place] [address] Result Comment: ACTH Reference Range: 7-10 am: 7.2 - 63.3 pg/mL Performed By: #### 2 141-0 ####[facility] LABIA [id number] [place] [address] [place] ALDOSTERONE/DIRECT RENIN RAT IOon 10-02-2024 JONATHAN RENIN RATIO 1.2 Normal <3.8 [facility] Comment on above: Order Comment: Taran acevedo Type: BLOOD SPECIMENOrdering Facility: [facility] Address: [address] [place] [address] Result Comment: A ra ben of aldosterone in ng/dL to direct renin in pg/mL greater than or equal to 3.8 is a positive screening test result for primary aldosteronism, when aldosterone is greater than or equal to 15 ng/dL. Performed By: #### A LDREN ####[facility] LABCLIA [id number] [place] [address] [place] Aldosterone [Mass/Vol] 6.1 ng/dL Normal 0.0-<35.4 [facility] Comment on above: Order Comment: Taran acevedo Type: BLOOD SPECIMENOrdering Facility: [facility] Address: [address] [place] [address] Result Comment: The reference interval for serum/plasma [...] 15 ng/dL. Performed By: #### A LDREN ####[facility] LABCLIA [id number] [address] STATES OF [facility] DIRECT RENIN 5.2 pg/mL Normal 3.6-81.6 [facility] Comment on above: Order Comment: Taran acevedo Type: BLOOD SPECIMENOrdering Facility: [facility] Address: [address] [place] [address] Result Comment: The reference interval for direct [...] 15 ng/dL. Performed By: #### A LDREN ####[facility] LABCLIA [id number] [place] [address] [place] PATIENT UPRIGHT OR SUPINE Upright Normal [facility] Comment on above: Order Comment: Taran acevedo Type: BLOOD SPECIMENOrdering Facility: [facility] Address: [address] [place] [address] Performed By: #### A ADITI ####[facility] LABCLIA [id number] [facility] [id number] [address] [place] DEXAMETHASONEon 10-02-2024 DEXAMETHASONE <50.0 Normal [facility] Comment on above: Order Comment: Speci men Type: BLOOD SPECIMENOrdering Facility: [facility] Address: [address] [place] [address] Result Comment: INTE RPRETIVE INFORMATION: Dexamethasone, Serum [...] developed and its performance characteristics determined by [facility]. It has not been cleared or approved by the US Food and Drug Administration. This test was performed in a CLIA certified laboratory and is intended for clinical purposes. Performed By: [facility] [address] [place] [address] Public Health Service Officer: Jason Shore MD, PhD [place] Number: [id number] Performed By: #### Aldair CORREA ####[facility] [id number] [place] [address] DHEA-S BLDon 10-02-2024 DHEA-S [Mass/Vol] 44.2 ug/dL Normal <=246.9 [facility] Comment on above: Order Comment: Speci men Type: BLOOD SPECIMENOrdering Facility: [facility] Address: [address] [place] [address] Result Comment: Refe rence ranges are age and gender specific. For additional information, reference range tables can be found in the laboratory test directory. The normal values are based on the following source: Dehydroepiandrosterone sulfate (DHEA S) [package insert V 17.0 Yoruba]. [facility], [place], [place]: June 2013. Performed By: #### Aldair AVITIA ####[facility] LABCLIA [id number] [address] [id number] [id number] [place] POTASSIUMon 10-02-2024 Potassium [Moles/Vol] 3.8 mmol/L Normal 3.7-5.1 [facility] Comment on above: Order Comment: Speci men Type: BLOOD SPECIMENOrdering Facility: [facility] Address: [address] [address] Performed By: #### K 1 ####[facility] LAURENT MILLMINNEAPOLISNCLIA [id number] [place] [id number] [place] CNOVon 09-22-2024 CNOV Office Visit (ENWSTR ) DOM AVILA ([id number]) 1955 F Date Time Provider Department 09/22/24 [...] disturbance 06/2017 Arthritis tendonitis, arthritis 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 (HCC) [...] Date 2D ECHO (EXEP) 06/30/2017 EF=65%, trivial CO, TI and 1+ PI Unchanged from 04/2017 2D ECHO (EXEP) 05/14/2021 EF=60%, 1+ TI, trival CO, AI, PI 2D ECHO (EXEP) 09/16/2021 EF=60%, [...] DETACHED RETIN (more content not included)... Normal [facility] CNOVSPon 09-14-2024 CNOVSP Visit (SP) Office (DEX) DOM AVILA ([id number]) 1955 F Date Time Provider Department 09/14/24 [...] DCIS. Per Dr. 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 2024 The ROS [...] Continue tamoxifen. - Continue follow up with PCP/GI/Cards/[facility] RECLAIMER. - Mammogram due March 2025. - Follow up after above. - Pt. aware to call office with any questions/concerns. The sensitive examination was discussed with the Patient or Patient's Authorized Patient Intake Coordinator. As applicable, any other physician, advance practice provider, medical student, or other health professional student that will be observing or involved in the sensitive examination for educational or training purposes was discussed with the Patient or Authorized Patient Intake Coordinator. The Patient or Authorized Patient Intake Coordinator has agreed to proceed with the sensitive examination. (Sensitive examination includes inspection and/or palpation of the breasts, pelvis, prostate and anorectal regions) The patient indicates understanding of these issues and agrees with the plan. All documentation from previous visit of 03/14/24-Dr. Georges/ (more content not included)... Normal [facility] CT ADRENAL WO/W IVCONon 10-0 CT ADRENAL WO/W IVCON * * *Final Report* * * DATE OF EXAM: Aug 15 2024 9:44AM [facility] 0536 - CT ADRENAL WO/W IVCON / [...] Lower thorax and bones: No significant findings. Dining Services Director (topogram) images: No additional findings. IMPRESSION: 1. Stable 1.0 cm left adrenal adenoma. 2. Minimal mesenteric fat stranding in the left flank, nonspecific. Double Cutter: [facility] Transcribe Date/Time: Aug 15 2024 9:33A Dictated by : MICHELE CAO MD This examination was interpreted and the report reviewed and electronically signed by: MCIHELE CAO MD on Aug 15 2024 10:27AM EST [id number] Normal [facility] CT Adrenal gland WO and W co ntrast Rikki 08-15-2024 IMPRESSION: 1. Stable 1.0 cm left adrenal adenoma. 2. Minimal mesenteric fat stranding in the left flank, nonspecific. Double Cutter: [facility] Transcribe Date/Time: Aug 15 2024 9:33A Dictated by : MICHELE CAO MD This examination was interpreted and the report reviewed and electronically signed by: MICHELE CAO MD on Aug 15 2024 10:27AM EST DIVISION OF RADIOLOGY * * *Final Report* * * DATE OF EXAM: Aug 15 2024 9:44AM [facility] 0536 - CT ADRENAL WO/W IVCON / [...] Lower thorax and bones: No significant findings. Dining Services Director (topogram) images: No additional findings. DIVISION OF RADIOLOGY Provider, [facility] - 08/15/2024 * * *Final Report* * * DATE OF EXAM: Aug 15 2024 9:44AM [facility] 0536 - CT ADRENAL WO/W IVCON / [...] Lower thorax and bones: No significant findings. Dining Services Director (topogram) images: No additional findings. IMPRESSION IMPRESSION: 1. Stable 1.0 cm left adrenal adenoma. 2. Minimal mesenteric fat stranding in the left flank, nonspecific. Double Cutter: [facility] Transcribe Date/Time: Aug 15 2024 9:33A Dictated by : MICHELE CAO MD This examination was interpreted and the report reviewed and electronically signed by: MICHELE CAO MD on Aug 15 2024 10:27AM EST [facility] Radiology Study observation (narrative) [facility] CT Adrenal gland WO and W co ntrast IVOrdered By: Ccf Provider on 08-15-2024 [facility] CREATININE BLDon 08-08-2024 Creatinine [Mass/Vol] 0.96 mg/dL Normal 0.58-0.96 [facility] Comment on above: Order Comment: Speci men Type: BLOOD SPECIMENOrdering Facility: [facility] Address: [address] [place] [address] Performed By: #### C RET1 ####[facility] [id number] [address] [place] Creatinine and Glomerular filtration rate.predicted panel (S/P/Bld) 65 mL/min/1.73m??? Normal >=60 [facility] Comment on above: Order Comment: Speci men Type: BLOOD SPECIMENOrdering Facility: [facility] Address: [address] [place] [address] Result Comment: Richa mated Glomerular Filtration Rate [...] actual GFR. Performed By: #### C RET1 ####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 Normal [facility] UA DIP, URINE (POC)on 2023 BILIRUBIN UA (POCT) Negative Negative [facility] CLARITY UA (POCT) Clear [facility] COLOR UA (POCT) Yellow [facility] GLUCOSE UA (POCT) Negative Negative mg/dL [facility] Hemoglobin Ql (U) Negative Negative [facility] Interpretation and review of laboratory results Abnormal [facility] KETONE UA (POCT) Negative Negative mg/dL [facility] LEUKOCYTES UA (POCT) Small Abnormal Negative [facility] NITRITE UA (POCT) Negative Negative [facility] PH UA (POCT) 6.0 4.5 - 8.0 [facility] Protein Ql (U) Negative Negative mg/dL [facility] SPECIFIC GRAVITY UA (POCT) 1.020 1.005 - 1.030 [facility] UROBILINOGEN UA (POCT) 0.2 Normal E.U./d L [facility] Location:[facility] Urolog y, [address] [place] [address] 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 Gomez 03/02/2018: Garibay's cyst of knee, left 03/2021: Breast neoplasm, Tis (DCIS), left No date: CAD (coronary artery disease) No date: Cataract 2012: Colon polyp 10/22/2016: Controlled type 2 diabetes mellitus without complication, without long-term current use of insulin (HCC) 07/31/2019: De Quervain's tenosynovitis, left 01/16/2016: Diabetic eye exam ([facility]) Comment: Lat done: 12/03/2017 No retinopathy 05/26/2021: [...] 06/30/2017: 2D ECHO (EXEP) Comment: EF=65%, trivial CO, TI and 1+ PI Unchanged from 04/201705/14/2021: 2D ECHO (EXEP) Comment: EF=60%, 1+ TI, trival CO, AI, PI 09/16/2021: 2D ECHO (EXEP) Comment: [...] DISK SURG (more content not included)... Normal [facility] CNOVon 07-04-2024 CNOV Office Visit (URUN) DOM AVILA ([id number]) 1955 F Date Time Provider Department 07/04/24 11:00 AM ORI LORD During your visit today, we recorded the following information about you: Pulse Blood pressure 70/minute 121/76 Ori Lord DO 07/04/2024 11:16 AM Signed [facility] ESTABLISHED PATIENT NOTE/HISTORY AND PHYSICAL PATIENT: Dom Avila (68 year old) PCP: Clifton Hung MD DATE OF SERVICE: 07/04/2024 SUBJECTIVE: CHIEF COMPLAINT: Patient is here for 6 week f/u. Patient has no new concerns. Patient is scheduled to see an Touch Up Edger on 07/11/24. 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 Normal [facility] UA DIP, URINE (POC)on 2023 BILIRUBIN UA (POCT) Negative Negative [facility] CLARITY UA (POCT) Clear [facility] COLOR UA (POCT) Yellow [facility] GLUCOSE UA (POCT) Negative Negative mg/dL [facility] Hemoglobin Ql (U) Negative Negative [facility] Interpretation and review of laboratory results Abnormal [facility] KETONE UA (POCT) Negative Negative mg/dL [facility] LEUKOCYTES UA (POCT) Small Abnormal Negative [facility] NITRITE UA (POCT) Negative Negative [facility] PH UA (POCT) 5.5 4.5 - 8.0 [facility] Protein Ql (U) Negative Negative mg/dL [facility] SPECIFIC GRAVITY UA (POCT) 1.015 1.005 - 1.030 [facility] UROBILINOGEN UA (POCT) 0.2 Normal E.U./d L [facility] Location:[facility] Urolog y, [address] [place] [address] Dr. Anne [address], [place], [place], [id number] [place] [address] POINT OF CARE [facility] CA 19-9 Serial Monitoron CA 19-9 GRAPH Normal [facility] Comment on above: Order Comment: Test( s) 698145-Zaezmdyeprj; 214552-Vjfnj Activity, Plasmawas developed and its performance characteristicsdetermined by [facility]. It has not been cleared or approvedby the Food and Drug Administration.NN Result Comment: SEE SCANNED REPORT Performed By: #### L 3300.1000, L501.6710, L3100.3425, L2100.0000, L3100.5017, L101.9900, L3300.1050, L3200.1100, L100.0100, L501.2450, L501.2400, L500.4050, L3200.0500, L509.6000 ####[facility] [address] [place], [place], [id number] MANUEL + Protein Elect, Serumon 06-28-2024 IMMUNOGLOB G QN TNP Normal [facility] Comment on above: Order Comment: Test( s) 474348-Cpkbjmrezxh; 159349-Nykcd Activity, Plasmawas developed and its performance characteristicsdetermined by [facility]. It has not been cleared or approvedby the Food and Drug Administration.NN Performed By: #### L 3300.1000, L501.6710, L3100.3425, L2100.0000, L3100.5017, L101.9900, L3300.1050, L3200.1100, L100.0100, L501.2450, L501.2400, L500.4050, L3200.0500, L509.6000 ####[facility] [address] [place], [place], [phone] Adrenocorticotropic Hormoneo n 06-27-2024 ACTH TNP Normal . [facility] Comment on above: Order Comment: Test( s) 824233-Vxnoxhicqaa; 077314-Uoxsv Activity, Plasmawas developed and its performance characteristicsdetermined [...] L3200.1100, L100.0100, L501.2450, L501.2400, L500.4050, L3200.0500, L509.6000 ####[facility] [address] [facility] [place], [address] IgG Subclasseson 06-27-2024 IgG, SUBCLASS 1 726 mg/dL Normal 248-810 [facility] Comment on above: Order Comment: Test( s) 140086-Pjfvyzfcnkk; 877007-Jijgg Activity, Plasmawas developed and its performance characteristicsdetermined by [facility]. It has not been cleared or approvedby the Food and Drug Administration.NN Performed By: #### L 3300.1000, L501.6710, L3100.3425, L2100.0000, L3100.5017, L101.9900, L3300.1050, L3200.1100, L100.0100, L501.2450, L501.2400, L500.4050, L3200.0500, L509.6000 ####[facility] [address] [place], [address] IgG, SUBCLASS 2 165 mg/dL Normal 130-555 [facility] Comment on above: Order Comment: Test( s) 535906-Ufxnbzikwcl; 195463-Jfwgc Activity, Plasmawas developed and its performance characteristicsdetermined by [facility]. It has not been cleared or approvedby the Food and Drug Administration.NN Performed By: #### L 3300.1000, L501.6710, L3100.3425, L2100.0000, L3100.5017, L101.9900, L3300.1050, L3200.1100, L100.0100, L501.2450, L501.2400, L500.4050, L3200.0500, L509.6000 ####[facility] [address] [place], [address] IgG, SUBCLASS 3 90 mg/dL Normal 15-102 [facility] Comment on above: Order Comment: Test( s) 707990-Wvrxhjjwjlr; 100561-Lmbye Activity, Plasmawas developed and its performance characteristicsdetermined by [facility]. It has not been cleared or approvedby the Food and Drug Administration.NN Performed By: #### L 3300.1000, L501.6710, L3100.3425, L2100.0000, L3100.5017, L101.9900, L3300.1050, L3200.1100, L100.0100, L501.2450, L501.2400, L500.4050, L3200.0500, L509.6000 ####[facility] [address] [place], [address] IgG, SUBCLASS 4 7 mg/dL Normal 2-96 [facility] Comment on above: Order Comment: Test( s) 962800-Rhmoapoqert; 470665-Psbfv Activity, Plasmawas developed and its performance characteristicsdetermined by [employer] [employer]. It has not been cleared or approvedby the Food and Drug Administration.NN Performed By: #### L 3300.1000, L501.6710, L3100.3425, L2100.0000, L3100.5017, L101.9900, L3300.1050, L3200.1100, L100.0100, L501.2450, L501.2400, L500.4050, L3200.0500, L509.6000 ####[facility] [address] [place], [address] IGG,QUANT 1152 mg/dL Normal 586-1602 [facility] Comment on above: Order Comment: Test( s) 880270-Yzcaepeqfqz; 977641-Atoae Activity, Plasmawas developed and its performance characteristicsdetermined by [facility]. It has not been cleared or approvedby the Food and Drug Administration.NN Performed By: #### L 3300.1000, L501.6710, L3100.3425, L2100.0000, L3100.5017, L101.9900, L3300.1050, L3200.1100, L100.0100, L501.2450, L501.2400, L500.4050, L3200.0500, L509.6000 ####[facility] [address] [place], [address] Immunoglobulins G/A/M/Giuseppe IMMUNOGLOB E QN 3 IU/mL Low 6-495 [facility] Comment on above: Order Comment: Test( s) 918201-Afslcqodsze; 888194-Ufonv Activity, Plasmawas developed and its performance characteristicsdetermined by [facility]. It has not been cleared or approvedby the Food and Drug Administration.NN Performed By: #### L 3300.1000, L501.6710, L3100.3425, L2100.0000, L3100.5017, L101.9900, L3300.1050, L3200.1100, L100.0100, L501.2450, L501.2400, L500.4050, L3200.0500, L509.6000 ####[facility] [address] [place], [address] L2100.0000on 06-27-2024 ACCA 18 units Normal 0-90 [facility] Comment on above: Order Comment: Test( s) 029052-Gahrcpktkpf; 387462-Mfjju Activity, Plasmawas developed and its performance characteristicsdetermined by [employer]. It has not been cleared or approvedby the Food and Drug Administration.NN Result Comment: Nega tive: <80 Equivocal: 80-90 Positive: >90 Performed By: #### L 3300.1000, L501.6710, L3100.3425, L2100.0000, L3100.5017, L101.9900, L3300.1050, L3200.1100, L100.0100, L501.2450, L501.2400, L500.4050, L3200.0500, L509.6000 ####[facility] [address] [place], [place], [id number] ALCA 4 units Normal 0-60 [facility] Comment on above: Order Comment: Test( s) 332484-Ofeqglluvrg; 782905-Pqzlm Activity, Plasmawas developed and its performance characteristicsdetermined by [facility]. It has not been cleared or approvedby the Food and Drug Administration.NN Result Comment: Nega tive:<55 Equivocal: 55-60 Positive: >60 Performed By: #### L 3300.1000, L501.6710, L3100.3425, L2100.0000, L3100.5017, L101.9900, L3300.1050, L3200.1100, L100.0100, L501.2450, L501.2400, L500.4050, L3200.0500, L509.6000 ####[facility] [address] [place], [place], [phone] AMCA 22 units Normal 0-100 [facility] Comment on above: Order Comment: Test( s) 484903-Xkvxjbrryyb; 809191-Yubmk Activity, Plasmawas developed and its performance characteristicsdetermined [...] L3200.1100, L100.0100, L501.2450, L501.2400, L500.4050, L3200.0500, L509.6000 ####[facility] [address] [place], [place], [address] Atypical pANCA Negative Normal Negative [facility] Comment on above: Order Comment: Test( s) 800937-Qyeckzijrlh; 397778-Ltqem Activity, Plasmawas developed and its performance characteristicsdetermined by [facility]. It has not been cleared or approvedby the Food and Drug Administration.NN Performed By: #### L 3300.1000, L501.6710, L3100.3425, L2100.0000, L3100.5017, L101.9900, L3300.1050, L3200.1100, L100.0100, L501.2450, L501.2400, L500.4050, L3200.0500, L509.6000 ####[facility] [address] [place], [place], [id number] COMMENT Comment Normal . [facility] Comment on above: Order Comment: Test( s) 501898-Hkfystzxoww; 372169-Fradn Activity, Plasmawas developed and its performance characteristicsdetermined by [facility]. It has not been cleared or approvedby the Food and Drug Administration.NN Result Comment: Aundrea antoni is not suggestive of Inflammatory Bowel Disease Performed By: #### L 3300.1000, L501.6710, L3100.3425, L2100.0000, L3100.5017, L101.9900, L3300.1050, L3200.1100, L100.0100, L501.2450, L501.2400, L500.4050, L3200.0500, L509.6000 ####[facility] [address] [place], [place], [id number] Lenny 22 units Normal 0-50 [facility] Comment on above: Order Comment: Test( s) 061579-Xsdapstmnpr; 361777-Kahfy Activity, Plasmawas developed and its performance characteristicsdetermined by [facility]. It has not been cleared or approvedby the Food and Drug Administration.NN Result Comment: Nega tive: <45 Equivocal: 45-50 Positive: >50 Performed By: #### L 3300.1000, L501.6710, L3100.3425, L2100.0000, L3100.5017, L101.9900, L3300.1050, L3200.1100, L100.0100, L501.2450, L501.2400, L500.4050, L3200.0500, L509.6000 ####[facility] [address] [place], [place], [address]([phone] Renin/Aldosterone Activityon 06-27-2024 ALD/RENIN RATIO 2.3 Normal 0.0-30.0 [facility] Comment on above: Order Comment: Test( s) 598346-Qjdibrwbiam; 230735-Kyyly Activity, Plasmawas developed and its performance characteristicsdetermined by [employer]. It has not been cleared or approvedby the Food and Drug Administration.NN Result Comment: Unit s: ng/dL per ng/mL/hr Performed By: #### L 3300.1000, L501.6710, L3100.3425, L2100.0000, L3100.5017, L101.9900, L3300.1050, L3200.1100, L100.0100, L501.2450, L501.2400, L500.4050, L3200.0500, L509.6000 ####[facility] [address] [facility] [place], [place], [phone] ALDOSTERONE,S 3.4 ng/dL Normal 0.0-30.0 [facility] Comment on above: Order Comment: Test( s) 553846-Wvjudgxjdyx; 061456-Cqnmz Activity, Plasmawas developed and its performance characteristicsdetermined by [employer]. It has not been cleared or approvedby the Food and Drug Administration.NN Performed By: #### L 3300.1000, L501.6710, L3100.3425, L2100.0000, L3100.5017, L101.9900, L3300.1050, L3200.1100, L100.0100, L501.2450, L501.2400, L500.4050, L3200.0500, L509.6000 ####[facility] [address] [facility]. [place], [place], [address] RENIN, PLASMA 1.500 ng/mL/hr Normal 0.167-5.380 [facility] Comment on above: Order Comment: Test( s) 707538-Qslmmssrnti; 986550-Drgmc Activity, Plasmawas developed and its performance characteristicsdetermined by [facility]. It has not been cleared or approvedby the Food and Drug Administration.NN Performed By: #### L 3300.1000, L501.6710, L3100.3425, L2100.0000, L3100.5017, L101.9900, L3300.1050, L3200.1100, L100.0100, L501.2450, L501.2400, L500.4050, L3200.0500, L509.6000 ####[facility] [address] [facility]. [place], [place], [address] CT Abd/Pelvis W/WO Contrasto n 06-23-2024 CT Abd/Pelvis W/WO Contrast [facility] Imaging Services [address] [place], [place] [address] CT Abd/Pelvis W/WO Contrast MR#: [id number] Acct: [id number] Name: DOM AVILA Rep #: [id number] : 1955 F 68 From: Justen lance MD PCP: Dr. Clifton Hung MD Status: [facility] Study: CT Abd/Pelvis W/WO Contrast Date of Exam: 06/08 05/01 Exam# [id number] Ordering Dr: Carson Alcantar DO [id number] STUDY: CT ABDOMEN AND PELVIS WITH AND [...] Dr. Clifton Hung MD; Carson Alcantar DO Double Cutter: Signed Normal [facility] Bedside Glucoseon 06-19-2024 FINGERSTICK GLU 150 mg/dL High 74-106 [facility] Comment on above: Result Comment: KAYA GEMENT OF PATIENT CARE PER NURSING PROTOCOL Performed By: #### L 501.080 ####[facility] [address] [place], [address] Colonoscopy Reporton 024 Colonoscopy Report [facility] Medical Records Department [address] [place] [address] Colonoscopy Report MR#: [id number] Acct: [id number] Name: DOM AVILA Rep #: [id number] : 1955 68 From: Carson Alcantar DO PCP: Dr. Clifton Hung MD Status:[facility] Patient Name: Dom Avila Procedure Date: 06/19/2024 [...] screening purposes. Procedure Code(s): --- Professional --- 09611, Colonoscopy, flexible; with biopsy, single or multiple CPT copyright 2021 [employer]. All rights reserved. The codes documented in this report are preliminary and upon nursing department chairperson review may be revised to meet current compliance requirements. Carson Alcantar DO 06/19/2024 11:39:02 AM This report has been signed electronically. Number of Addenda: 0 Note Initiated On: 06/19/2024 11:18 AM 06/19/24 1139 Date Carson Alcantar DO Cosigner Signature: Date (if indicated) CC: Dr. Clifton Hung MD; Carson Alcantar DO Date Dictated: (more content not included)... Normal [facility] EGD Reporton 06-19-2024 EGD Report [facility] Medical Records Department [address] [place] [address] EGD Report MR#: [id number] Acct: [id number] Name: DOM AVILA Rep #: [id number] : 1955 68 From: Carson Alcantar DO PCP: Dr. Clifton Hung MD Status:[facility] Patient Name: Dom Avila Procedure Date: 06/19/2024 [...] pathology results. Procedure Code(s): --- Professional --- 32581, Esophagogastroduodenos copy, flexible, transoral; with biopsy, single or multiple CPT copyright 2021 [employer]. All rights reserved. The codes documented in this report are preliminary and upon nursing department chairperson review may be revised to meet current compliance requirements. Carson Alcantar DO 06/19/2024 11:36:11 AM This report has been signed electronically. Number of Addenda: 0 Note Initiated On: 06/19/2024 11:05 AM 06/19/24 1136 Date Carson Cool Signature: Date (if indicated) CC: Dr. Clifton Hung MD; Carson Alcantar DO Date Dictated: 06/19/241104 Date Transcribed: Double Cutter: BETTY Signed Normal [facility] H Pylori (initial)on H Pylori (initial) -- ---- Patient Age/Sex Location Account Attending Physician ---- DOM AVILA 68/F EN [id number] Carson Alcantar DO ---- Specimen: [id number] Received: 06/19/24-1553 Status: SOL Roland Num: [id number] Spec Type: IMMUNO Subm Dr: Carson Alcantar DO PHYSICIAN INSTITUTION [facility] [address] [place], [place] [address] SPECIMEN INFORMATION: Tissue Source: B- Gastric body biopsy Clinical Info: Elevated CA 19-9 level, diarrhea Specimen Number: [id number] CPT code: 92364 METHODOLOGY: Deparaffinized sections of prefer/formalin-fixed tissue or [...] developed and their performance characteristics determined by [facility]. They may not have been cleared or approved by the U.S. Food and Drug Administration. The FDA has determined that such clearance or approval is not necessary. The above immunohistochemical/du alISH markers are ordered and reviewed by the Pathologist. INTERPRETATION: B. Gastric body, biopsy: Negative for Helicobacter pylori organisms. 06/30/2024 Signed (signature on file) Dr. Dexter Orta MD 06/30/24 1436 ---- Normal [facility] Comment on above: Performed By: #### P H.PYLORI #### [facility] [address] [facility]. [place], [place], [address] MR/POSTOP.Jimena 06-19-2024 MR/POSTOP.[facility] Medical Records Department [address] [place] [address] Anesthesia Postop Eval I 06/19/24 1141 MR#: [id number] Acct: [id number] Name: DOM AIVLA Rep #: [id number] : 1955 68 From: Erasto Medina PCP: Dr. Clifton Hung MD Status:[facility] Y Race: C Location: [place] [address] Anesthesia: Postop Eval I Current Vital Signs [...] Erasto Hoyt Signature: Date CC: Signed Normal [facility] MR/XHVBJTTB1qf 06-19-2024 [facility] Medical Records Department [address] [place] [address] Anesthesia Postop Eval II 06/19/24 1336 MR#: [id number] Acct: [id number] Name: DOM AVILA Rep #: [id number] : 1955 68 From: Pee Lomeli MD PCP: Dr. Clifton Hung MD Status:[facility] Y Race: C Location: EN Anesthesia Postop [...] Pee Hoyt Signature: Date CC: Signed Normal [facility] Surgery Specimen Level Rikki 06-19-2024 Surgery Specimen Level IV ---- Patient Age/Sex Location Account Attending Physician ---- DOM AVILA 68/F EN [id number] Carson Alcantar DO ---- Specimen: [id number] Received: 06/19/24 Status: SOL Roland Num: [id number] Spec Type: COLON BX Subm Dr: Carson [...] for Helicobacter pylori will be reported separately ([id number]). MICROSCOPIC DESCRIPTION Slides are reviewed. B. The [...] Attending Physician ---- DOM AVILA 68/F EN [id number] Carson Alcantar DO ---- in one cassette. D. Received in fixative is one container labeled with the patient's name and designated Random colon biopsy. The specimen consists of multiple irregular fragments of light jaramillo soft tissue that in aggregate measure 2.5 x 0.6 x 0.1 cm. The specimen is totally submitted in one cassette. Domingo 06/20/2024 TC:3 CPT:29113e2 ---- Patient Age/Sex Location Account Attending Physician ---- DOM AVILA 68/F EN [id number] Carson Alcantar DO ---- Signed (signature on file) Dr. Dexter Orta MD 06/21/24 1120 ---- Normal [facility] Comment on above: Performed By: #### P SUIV ####[facility] [address] [place], [address] M7400.3302on 06-15-2024 M7400.3302 __ TESTING PERFORMED AT [facility]. ORIGINAL REPORT ON FILE IN LAB CONTAINS ADDITIONAL TEST SITE INFORMATION. Giardia Lamblia EIA NEGATIVE Normal [facility] Comment on above: Performed By: #### M 100.0605, M7400.3302, L7000.0300, L7000.0700, M600.5000, L7000.0750 ####[facility] [address] [place], [address] Ova and Parasites 8623on OP OVA AND PARASITES EXAM, ROUTINE These results were obtained using wet preparation(s) and trichrome stained smear. This test does not include testing for Crytosporidium parvum, Cyclospora, or Microsporidia. O+P Spec Micro One negative specimen does not rule out the possibility of a parasitic infection. TESTING PERFORMED AT [facility]. ORIGINAL REPORT ON FILE IN LAB CONTAINS ADDITIONAL TEST SITE INFORMATION. Ova/Parasite Exam NO OVA, CYSTS, OR PARASITES FOUND. Normal [facility] Comment on above: Performed By: #### M 100.0605, M7400.3302, L7000.0300, L7000.0700, M600.5000, L7000.0750 ####[facility] [address] [place], [address] Calprotectin, Stoolon [address] 111 ug/g Normal 0-120 [facility] Comment on above: Order Comment: Test( s) 299789-Pomx, Neutral; 333054-Tccs, Total was developed and its performance characteristics determined by [facility]. It has not been cleared or approved by the Food and Drug Administration. Result Comment: Conc entration Interpretation Follow-Up < 5 - 50 ug/g Normal None >50 -120 ug/g Borderline Re-evaluate in 4-6 weeks >120 ug/g Abnormal Repeat as clinically indicated Performed at: [facility] [address] [id number] [employer] Supervisor: Timoteo Berumen PhD, Phone: [phone] Performed at: [facility] Lab[address] [id number] [employer] Supervisor: Benson Osei MD, Phone: [phone] Performed By: #### M 100.0605, M7400.3302, L7000.0300, L7000.0700, M600.5000, L7000.0750 #### [facility] [address] [place], [place], [address] Fecal Fat, Qualitativeon FATS, NEUTRAL Normal Normal . [facility] Comment on above: Order Comment: Test( s) 535224-Yxci, Neutral; 893581-Cxma, Total was developed and its performance characteristics determined by [facility]. It has not been cleared or approved by the Food and Drug Administration. Result Comment: Norm al (<60 Droplets/HPF) Performed By: #### M 100.0605, M7400.3302, L7000.0300, L7000.0700, M600.5000, L7000.0750 #### [facility] [address] [place], [address] FATS, TOTAL Normal Normal . [facility] Comment on above: Order Comment: Test( s) 966513-Fgby, Neutral; 742512-Ndkk, Total was developed and its performance characteristics determined by [facility]. It has not been cleared or approved by the Food and Drug Administration. Result Comment: Norm al (<100 Droplets/HPF) Performed By: #### M 100.0605, M7400.3302, L7000.0300, L7000.0700, M600.5000, L7000.0750 #### [facility] [address] [place], [address] L7000.0750on 06-08-2024 P ELASTASE,FECA > 800 Normal >200 [facility] Comment on above: Result Comment: Resu lt Units: ug Elast./g Severe Pancreatic Insufficiency: <100 Moderate Pancreatic Insufficiency: 100 - 200 Normal: >200 Performed at: - [address] [id number] [employer] Supervisor: Benson Osei MD, Phone: [phone] Performed By: #### M 100.0605, M7400.3302, L7000.0300, L7000.0700, M600.5000, L7000.0750 #### [facility] [address] [place], [address] Stool Lactoferrin/WBCon 05-10 WBCST Normal Reference Ran ge = Negative Fecal WBC Lactoferrin Negative: No Fecal WBC Lactoferrin present Normal [facility] Comment on above: Performed By: #### M 100.0605, M7400.3302, L7000.0300, L7000.0700, M600.5000, L7000.0750 #### [facility] [address] [place], [address] Amylaseon 06-05-2024 SIMA 52 U/L Normal 25-115 [facility] Comment on above: Performed By: #### L 3300.1000, L501.6710, L3100.3425, L2100.0000, L3100.5017, L101.9900, L3300.1050, L3200.1100, L100.0100, L501.2450, L501.2400, L500.4050, L3200.0500, L509.6000 ####[facility] [address] [place], [address] CBC W/Diff, Automatedon 07-2 Absolute Lymph 1.78 X10 3/uL Normal 0.83-4.51 [facility] Comment on above: Performed By: #### L 3300.1000, L501.6710, L3100.3425, L2100.0000, L3100.5017, L101.9900, L3300.1050, L3200.1100, L100.0100, L501.2450, L501.2400, L500.4050, L3200.0500, L509.6000 ####[facility] [address] [facility] [place], [address] Absolute Neut 2.5 X10 3/uL Normal 2.0-7.7 [facility] Comment on above: Performed By: #### L 3300.1000, L501.6710, L3100.3425, L2100.0000, L3100.5017, L101.9900, L3300.1050, L3200.1100, L100.0100, L501.2450, L501.2400, L500.4050, L3200.0500, L509.6000 ####[facility] [address] [facility] [place], [address] Basophils/100 WBC (Bld) 0.4 % Normal 0-1 [facility] Comment on above: Performed By: #### L 3300.1000, L501.6710, L3100.3425, L2100.0000, L3100.5017, L101.9900, L3300.1050, L3200.1100, L100.0100, L501.2450, L501.2400, L500.4050, L3200.0500, L509.6000 ####[facility] [address] [facility] [place], [address] Eosinophils/100 WBC (Bld) 0.8 % Normal 0-5 [facility] Comment on above: Performed By: #### L 3300.1000, L501.6710, L3100.3425, L2100.0000, L3100.5017, L101.9900, L3300.1050, L3200.1100, L100.0100, L501.2450, L501.2400, L500.4050, L3200.0500, L509.6000 ####[facility] [address] [facility] [place], [address] Erythrocyte distribution width (RBC) [Ratio] 13.6 % Normal 11.6-14.6 [facility] Comment on above: Performed By: #### L 3300.1000, L501.6710, L3100.3425, L2100.0000, L3100.5017, L101.9900, L3300.1050, L3200.1100, L100.0100, L501.2450, L501.2400, L500.4050, L3200.0500, L509.6000 ####[facility] [address] [facility] [place], [address] Hematocrit (Bld) [Volume fraction] 34.7 % Low 37-47 [facility] Comment on above: Performed By: #### L 3300.1000, L501.6710, L3100.3425, L2100.0000, L3100.5017, L101.9900, L3300.1050, L3200.1100, L100.0100, L501.2450, L501.2400, L500.4050, L3200.0500, L509.6000 ####[facility] [address] [facility] [place], [address] Hemoglobin (Bld) [Mass/Vol] 11.2 g/dL Low 12.0-15.0 [facility] Comment on above: Performed By: #### L 3300.1000, L501.6710, L3100.3425, L2100.0000, L3100.5017, L101.9900, L3300.1050, L3200.1100, L100.0100, L501.2450, L501.2400, L500.4050, L3200.0500, L509.6000 ####[facility] [address] [place], [address] IG% 0.400 Normal 0.0-0.9 [facility] Comment on above: Result Comment: IG% - Immature Granulocytes (promyelocytes, myelocytes and metamyelocytes) > 1% indicates that a LEFT SHIFT is Present. Performed By: #### L 3300.1000, L501.6710, L3100.3425, L2100.0000, L3100.5017, L101.9900, L3300.1050, L3200.1100, L100.0100, L501.2450, L501.2400, L500.4050, L3200.0500, L509.6000 ####[facility] [address] [place], [address] Lymphocytes/100 WBC (Bld) 37.6 % Normal 19-41 [facility] Comment on above: Performed By: #### L 3300.1000, L501.6710, L3100.3425, L2100.0000, L3100.5017, L101.9900, L3300.1050, L3200.1100, L100.0100, L501.2450, L501.2400, L500.4050, L3200.0500, L509.6000 ####[facility] [address] [place], [address] MCH (RBC) [Entitic mass] 29.9 pg Normal 27.0-32.0 [facility] Comment on above: Performed By: #### L 3300.1000, L501.6710, L3100.3425, L2100.0000, L3100.5017, L101.9900, L3300.1050, L3200.1100, L100.0100, L501.2450, L501.2400, L500.4050, L3200.0500, L509.6000 ####[facility] [address] [place], [address] MCHC (RBC) [Mass/Vol] 32.3 g/dL Normal 32-36 [facility] Comment on above: Performed By: #### L 3300.1000, L501.6710, L3100.3425, L2100.0000, L3100.5017, L101.9900, L3300.1050, L3200.1100, L100.0100, L501.2450, L501.2400, L500.4050, L3200.0500, L509.6000 ####[facility] [address] [place], [address] MCV (RBC) [Entitic vol] 92.5 fL Normal 81-99 [facility] Comment on above: Performed By: #### L 3300.1000, L501.6710, L3100.3425, L2100.0000, L3100.5017, L101.9900, L3300.1050, L3200.1100, L100.0100, L501.2450, L501.2400, L500.4050, L3200.0500, L509.6000 ####[facility] [address] [place], [address] Monocytes/100 WBC (Bld) 8.0 % Normal 0-10 [facility] Comment on above: Performed By: #### L 3300.1000, L501.6710, L3100.3425, L2100.0000, L3100.5017, L101.9900, L3300.1050, L3200.1100, L100.0100, L501.2450, L501.2400, L500.4050, L3200.0500, L509.6000 ####[facility] [address] [place], [address] Neutrophils/100 WBC (Bld) 52.8 % Normal 47-70 [facility] Comment on above: Performed By: #### L 3300.1000, L501.6710, L3100.3425, L2100.0000, L3100.5017, L101.9900, L3300.1050, L3200.1100, L100.0100, L501.2450, L501.2400, L500.4050, L3200.0500, L509.6000 ####[facility] [address] [place], [place], [phone] Nucleated RBC (Bld) [#/Vol] 0 10*3/uL Normal 0-5 [facility] Comment on above: Performed By: #### L 3300.1000, L501.6710, L3100.3425, L2100.0000, L3100.5017, L101.9900, L3300.1050, L3200.1100, L100.0100, L501.2450, L501.2400, L500.4050, L3200.0500, L509.6000 ####[facility] [address] [place], [place], [phone] Platelet mean volume (Bld) [Entitic vol] 10.1 fL Normal 6.2-12.0 [facility] Comment on above: Performed By: #### L 3300.1000, L501.6710, L3100.3425, L2100.0000, L3100.5017, L101.9900, L3300.1050, L3200.1100, L100.0100, L501.2450, L501.2400, L500.4050, L3200.0500, L509.6000 ####[facility] [address] [place], [place], [phone] Platelets (Bld) [#/Vol] 186 10*3/uL Normal 150-450 [facility] Comment on above: Performed By: #### L 3300.1000, L501.6710, L3100.3425, L2100.0000, L3100.5017, L101.9900, L3300.1050, L3200.1100, L100.0100, L501.2450, L501.2400, L500.4050, L3200.0500, L509.6000 ####[facility] [address] [place], [address] RBC (Bld) [#/Vol] 3.75 10*6/uL Low 4.2-5.4 [facility] Comment on above: Performed By: #### L 3300.1000, L501.6710, L3100.3425, L2100.0000, L3100.5017, L101.9900, L3300.1050, L3200.1100, L100.0100, L501.2450, L501.2400, L500.4050, L3200.0500, L509.6000 ####[facility] [address] [place], [address] RDW SD 46.4 fl High 35.1-43.9 [facility] Comment on above: Performed By: #### L 3300.1000, L501.6710, L3100.3425, L2100.0000, L3100.5017, L101.9900, L3300.1050, L3200.1100, L100.0100, L501.2450, L501.2400, L500.4050, L3200.0500, L509.6000 ####[facility] [address] [place], [address] WBC (Bld) [#/Vol] 4.7 10*3/uL Normal 4.4-11.0 [facility] Comment on above: Performed By: #### L 3300.1000, L501.6710, L3100.3425, L2100.0000, L3100.5017, L101.9900, L3300.1050, L3200.1100, L100.0100, L501.2450, L501.2400, L500.4050, L3200.0500, L509.6000 ####[facility] [address] [place], [address] CORTISOL SERUMon 06-05-2024 CORTISOL 14.80 ug/dL Normal 3.44-22.45 [facility] Comment on above: Result Comment: Adul t (AM) 5.27 - 22.45 ug/dL Adult (PM) 3.44 - 16.76 ug/dL Please note revised CORTISOL reference range effective 2020. Performed By: #### L 3300.1000, L501.6710, L3100.3425, L2100.0000, L3100.5017, L101.9900, L3300.1050, L3200.1100, L100.0100, L501.2450, L501.2400, L500.4050, L3200.0500, L509.6000 ####[facility] [address] [place], [place], [phone] CRPon 06-05-2024 C-REACTIVE PROT < 2.90 Normal 0.0-3.0 [facility] Comment on above: Result Comment: C-Re active Protein (CRP) provides useful information for the diagnosis, therapy and monitoring of inflammatory processes and associated diseases. For the evaluation of Relative Risk for Cardiovascular Disease, a High Sensitivity CRP (HSCRP) should be ordered. Performed By: #### L 3300.1000, L501.6710, L3100.3425, L2100.0000, L3100.5017, L101.9900, L3300.1050, L3200.1100, L100.0100, L501.2450, L501.2400, L500.4050, L3200.0500, L509.6000 ####[facility] [address] [place], [place], [phone] Comprehensive Metabolic Prof ilon 06-05-2024 Albumin [Mass/Vol] 3.1 g/dL Low 3.2-5.0 [facility] Comment on above: Performed By: #### L 3300.1000, L501.6710, L3100.3425, L2100.0000, L3100.5017, L101.9900, L3300.1050, L3200.1100, L100.0100, L501.2450, L501.2400, L500.4050, L3200.0500, L509.6000 ####[facility] [address] [place], [place], [phone] Albumin/Globulin [Mass ratio] 0.9 {ratio} Normal 0.9-2.4 [facility] Comment on above: Performed By: #### L 3300.1000, L501.6710, L3100.3425, L2100.0000, L3100.5017, L101.9900, L3300.1050, L3200.1100, L100.0100, L501.2450, L501.2400, L500.4050, L3200.0500, L509.6000 ####[facility] [address] [place], [place], [phone] ALK P 37 U/L Low 45-117 [facility] Comment on above: Performed By: #### L 3300.1000, L501.6710, L3100.3425, L2100.0000, L3100.5017, L101.9900, L3300.1050, L3200.1100, L100.0100, L501.2450, L501.2400, L500.4050, L3200.0500, L509.6000 ####[facility] [address] [place], [place], [phone] ALT [Catalytic activity/Vol] 15 U/L Normal 13-56 [facility] Comment on above: Performed By: #### L 3300.1000, L501.6710, L3100.3425, L2100.0000, L3100.5017, L101.9900, L3300.1050, L3200.1100, L100.0100, L501.2450, L501.2400, L500.4050, L3200.0500, L509.6000 ####[facility] [address] [place], [address] AST [Catalytic activity/Vol] 16 U/L Normal 15-37 [facility] Comment on above: Performed By: #### L 3300.1000, L501.6710, L3100.3425, L2100.0000, L3100.5017, L101.9900, L3300.1050, L3200.1100, L100.0100, L501.2450, L501.2400, L500.4050, L3200.0500, L509.6000 ####[facility] [address] [place], [place], [phone] Bilirubin [Mass/Vol] 0.20 mg/dL Normal 0.20-1.00 [facility] Comment on above: Result Comment: For patients on eltrombopag therapy, use of Dimension [place] TBIL is not recommended. Performed By: #### L 3300.1000, L501.6710, L3100.3425, L2100.0000, L3100.5017, L101.9900, L3300.1050, L3200.1100, L100.0100, L501.2450, L501.2400, L500.4050, L3200.0500, L509.6000 ####[facility] [address] [place], [place], [phone] BUN/CRE 18.3 RATIO Normal 10-20 [facility] Comment on above: Performed By: #### L 3300.1000, L501.6710, L3100.3425, L2100.0000, L3100.5017, L101.9900, L3300.1050, L3200.1100, L100.0100, L501.2450, L501.2400, L500.4050, L3200.0500, L509.6000 ####[facility] [address] [place], [place], [phone] CA,Total 8.3 mg/dL Low 8.5-10.1 [facility] Comment on above: Performed By: #### L 3300.1000, L501.6710, L3100.3425, L2100.0000, L3100.5017, L101.9900, L3300.1050, L3200.1100, L100.0100, L501.2450, L501.2400, L500.4050, L3200.0500, L509.6000 ####[facility] [address] [place], [address] Chloride [Moles/Vol] 108 mmol/L High 98-107 [facility] Comment on above: Performed By: #### L 3300.1000, L501.6710, L3100.3425, L2100.0000, L3100.5017, L101.9900, L3300.1050, L3200.1100, L100.0100, L501.2450, L501.2400, L500.4050, L3200.0500, L509.6000 ####[facility] [address] [place], [address] CO2 [Moles/Vol] 29.0 mmol/L Normal 21.0-32.0 [facility] Comment on above: Performed By: #### L 3300.1000, L501.6710, L3100.3425, L2100.0000, L3100.5017, L101.9900, L3300.1050, L3200.1100, L100.0100, L501.2450, L501.2400, L500.4050, L3200.0500, L509.6000 ####[facility] [address] [place], [address] Creatinine [Mass/Vol] 0.82 mg/dL Normal 0.55-1.02 [facility] Comment on above: Result Comment: The validity of the calculated GFR GFRAA in patients over 70 years has not been determined. Clinical correlation is essential. Performed By: #### L 3300.1000, L501.6710, L3100.3425, L2100.0000, L3100.5017, L101.9900, L3300.1050, L3200.1100, L100.0100, L501.2450, L501.2400, L500.4050, L3200.0500, L509.6000 ####[facility] [address] [place], [address] EST GFR - AA 89 mL/min Normal >60 [facility] Comment on above: Result Comment: Afri can [place] GFR Calc Performed By: #### L 3300.1000, L501.6710, L3100.3425, L2100.0000, L3100.5017, L101.9900, L3300.1050, L3200.1100, L100.0100, L501.2450, L501.2400, L500.4050, L3200.0500, L509.6000 ####[facility] [address] [place], [place], [phone] GAP 3 Low 5-15 [facility] Comment on above: Performed By: #### L 3300.1000, L501.6710, L3100.3425, L2100.0000, L3100.5017, L101.9900, L3300.1050, L3200.1100, L100.0100, L501.2450, L501.2400, L500.4050, L3200.0500, L509.6000 ####[facility] [address] [place], [address] GFR/1.73 sq M.predicted among non-blacks MDRD (S/P/Bld) [Vol rate/Area] 74 mL/min/{1.73_m2} Normal >60 [facility] Comment on above: Result Comment: Non- GFR Calc Performed By: #### L 3300.1000, L501.6710, L3100.3425, L2100.0000, L3100.5017, L101.9900, L3300.1050, L3200.1100, L100.0100, L501.2450, L501.2400, L500.4050, L3200.0500, L509.6000 ####[facility] [address] [place], [place], [phone] Globulin (S) [Mass/Vol] 3.4 g/dL Normal 2.2-4.2 [facility] Comment on above: Performed By: #### L 3300.1000, L501.6710, L3100.3425, L2100.0000, L3100.5017, L101.9900, L3300.1050, L3200.1100, L100.0100, L501.2450, L501.2400, L500.4050, L3200.0500, L509.6000 ####[facility] [address] [place], [address] Glucose [Mass/Vol] 158 mg/dL High 74-106 [facility] Comment on above: Result Comment: Fast ing Glucose result greater than or equal to 126 mg/dL suggests DIABETES MELLITUS per A.D.A. criteria. Performed By: #### L 3300.1000, L501.6710, L3100.3425, L2100.0000, L3100.5017, L101.9900, L3300.1050, L3200.1100, L100.0100, L501.2450, L501.2400, L500.4050, L3200.0500, L509.6000 ####[facility] [address] [place], [address] Potassium [Moles/Vol] 3.3 mmol/L Low 3.5-5.1 [facility] Comment on above: Performed By: #### L 3300.1000, L501.6710, L3100.3425, L2100.0000, L3100.5017, L101.9900, L3300.1050, L3200.1100, L100.0100, L501.2450, L501.2400, L500.4050, L3200.0500, L509.6000 ####[facility] [address] [place], [address] Sodium [Moles/Vol] 140 mmol/L Normal 136-145 [facility] Comment on above: Performed By: #### L 3300.1000, L501.6710, L3100.3425, L2100.0000, L3100.5017, L101.9900, L3300.1050, L3200.1100, L100.0100, L501.2450, L501.2400, L500.4050, L3200.0500, L509.6000 ####[facility] [address] [place], [place], [phone] T PROT 6.5 g/dL Normal 6.4-8.2 [facility] Comment on above: Performed By: #### L 3300.1000, L501.6710, L3100.3425, L2100.0000, L3100.5017, L101.9900, L3300.1050, L3200.1100, L100.0100, L501.2450, L501.2400, L500.4050, L3200.0500, L509.6000 ####[facility] [address] [place], [place], [phone] Urea nitrogen [Mass/Vol] 15 mg/dL Normal 7-18 [facility] Comment on above: Performed By: #### L 3300.1000, L501.6710, L3100.3425, L2100.0000, L3100.5017, L101.9900, L3300.1050, L3200.1100, L100.0100, L501.2450, L501.2400, L500.4050, L3200.0500, L509.6000 ####[facility] [address] [place], [place], [phone] Erythrocyte Sed Rateon 06-05 SED RATE < 1 Normal 0-30 [facility] Comment on above: Performed By: #### L 3300.1000, L501.6710, L3100.3425, L2100.0000, L3100.5017, L101.9900, L3300.1050, L3200.1100, L100.0100, L501.2450, L501.2400, L500.4050, L3200.0500, L509.6000 ####[facility] [address] [place], [place], [phone] Gastroenterology Visit Repor ton 06-05-2024 Gastroenterology Visit Report [facility] [address] [place] [address] OFFICE VISIT Date of Service: 06/05/24 MR#: [id number] Acct: [id number] Name: DOM AVILA Rep #: [id number] : 1955 Provider: Carson Alcantar DO Age/Sex: 68/F [place] [facility] [place]: Signed Intake Vital Signs 09/11/23 14:30 [...] mg PO DAILY 11/30/22 06/05/24 History release jggtfm-ckriupyk-grfbkz e See Rx Instructions PO .COMPLEX 03/04/23 [...] of other medications Atherosclerotic heart disease of [place] coronary artery without angina pectoris Cardiovascular stress [...] of parathyroidectomy (more content not included)... Normal [facility] Lipaseon 06-05-2024 Lipase [Catalytic activity/Vol] 109 U/L High 13-75 [facility] Comment on above: Result Comment: Rom mendosa note: LIPASE revised reference range effective 23. New Lipase methodology. Expected to produce lower values than the previous assay method. NEW Reference Range: 13 - 75 U/L Performed By: #### L 3300.1000, L501.6710, L3100.3425, L2100.0000, L3100.5017, L101.9900, L3300.1050, L3200.1100, L100.0100, L501.2450, L501.2400, L500.4050, L3200.0500, L509.6000 ####[facility] [address] 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) (01/09/2017), Garibay's cyst of knee, left (03/02/2018), Breast neoplasm, Tis (DCIS), 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), CAD (coronary artery disease), Cataract, Colon polyp (2011), Controlled type 2 diabetes mellitus without complication, without long-term current use of insulin ([facility]) (10/22/2016), De Quervain's tenosynovitis, left (07/31/2019), Diabetic eye exam ([facility]) (01/16/2016), Ductal carcinoma in situ (DCIS) of [...] includes the following prescription(s): doxycycline, coenzyme q10, thtxad-sboxzdqz-mcztuf e, lisinopril, fluconazole, estradiol, tamoxifen, pioglitazone, omeprazole, [...] Shannon 05-23-2024 JHONATAN Telephone (UROUPD) DOM AVILA ([id number]) 1955 F Date Time Provider Department 05/23/24 [...] I spoke to patient, pt stated that [facility] unable to see until Mid Jul, They are needing to know how urgent this appt is, patient is willing to go else where if needed. Ori Landin DO 05/24/2024 12:38 PM Signed She probably should go to another shuttle hand. She has a 2.4cm adrenal adenoma @Nicole, can the referral be faxed to [facility] to see if they have sooner availability? DO Cale Leroy Ashley, MA 05/24/2024 12:43 PM Signed Referral Faxed Via [facility] RAUL Ar[place]ula Jane 05/25/2024 12:27 PM Signed [...] MG DAILY August 23, 2019 3:27pm - gialdg-koaxprxe-hsximu e (CREON 36) 36,000-114,000- 180,000 unit delayed [...] 2 diabetes mellitus without com*10/22/2016 Atherosclerosis of mohegan coronary artery with *01/09/2017 S/P angioplasty with stent [Z95.820] 01/09/2017 Meniere disease, right [H81.01] 10/29/2017 H (more content not included)... [facility] Telephone (URUN) DOM AVILA ([id number]) 1955 F Date Time Provider Department 05/23/24 ORI LANDIN During your visit today, we recorded the following information about you: Nicole Madsen MA 05/23/2024 4:04 PM Signed Consult to Endocrinology at [facility] faxed VIA [facility] Nicole Madsen MA Allergies As of [...] MG DAILY August 23, 2019 3:27pm - ujyjyc-jlrmueal-ohvaza e (CREON 36) 36,000-114,000- 180,000 unit delayed [...] 2 diabetes mellitus without com*10/22/2016 Atherosclerosis of mo[place] coronary artery with *01/09/2017 S/P angioplasty with [...] neurological complication associ*04/17/2024 Encounter Status:Closed by NICOLE MADESN on 05/23/24 Normal [facility] Urinalysis complete panel (U )Ordered By: Tammi Shaver on 05-23-2024 Bacteria LM.HPF (Urine sed) [#/Area] Moderate Abnormal None Seen /HPF [facility] Bilirubin Ql (U) Negative Negative [facility] Clarity (Unsp spec) Clear Clear [facility] Color (U) Yellow Yellow [facility] Epithelial cells LM.HPF (Urine sed) [#/Area] Many /HPF [facility] Glucose Test strip (U) [Mass/Vol] Negative Negative [facility] Hemoglobin Ql (U) Negative Negative [facility] Interpretation and review of laboratory results Abnormal [facility] Ketones Ql (U) Negative Negative [facility] Leukocyte esterase Test strip Ql (U) 2+ Abnormal Negative [facility] Nitrite Ql (U) Negative Negative [facility] pH (U) 6.0 [pH] 5.0 - 8.0 [facility] Protein (U) [Mass/Vol] Negative Negative [facility] RBC LM.HPF (Urine sed) [#/Area] 3-5 /HPF Abnormal 0-3 /HPF [facility] Specific gravity (U) [Rel density] 1.015 1.005 - 1.030 [facility] Urobilinogen Ql (U) 0.2 EU/dL 0.2-1.0 EU/dL [facility] WBC LM.HPF (Urine sed) [#/Area] 11-25 /HPF Abnormal 0-5 /HPF [facility] Urinalysis complete panel (U )on 05-23-2024 Bacteria LM.HPF (Urine sed) [#/Area] Moderate Abnormal None Seen [facility] Comment on above: Order Comment: Speci men Type: URINE SPECIMENOrdering Facility: [facility] Address: [address] [place] [address] Performed By: #### 2 4356-8 ####[facility] LABCLIA [id number] [place] [address] [place] Bilirubin Ql (U) Negative Normal Negative [facility] Comment on above: Order Comment: Speci men Type: URINE SPECIMENOrdering Facility: [facility] Address: [address] [place] [address] Performed By: #### 2 4356-8 ####[facility] LABIA [id number] [place] [address] [place] Clarity (Unsp spec) Clear Normal Clear [facility] Comment on above: Order Comment: Speci men Type: URINE SPECIMENOrdering Facility: [facility] Address: [address] [place] [address] Performed By: #### 2 4356-8 ####[facility] [id number] [place] [address] [place] Color (U) Yellow Normal Yellow [facility] Comment on above: Order Comment: Speci men Type: URINE SPECIMENOrdering Facility: [facility] Address: [address] [place] [address] Performed By: #### 2 4356-8 ####[facility] LABIA [id number] [place] [address] [place] Epithelial cells LM.HPF (Urine sed) [#/Area] Many Normal [facility] Comment on above: Order Comment: Speci men Type: URINE SPECIMENOrdering Facility: [facility] Address: [address] [place] [address] Performed By: #### 2 4356-8 ####[facility] LABIA [id number] [place] [address] [place] Glucose Test strip (U) [Mass/Vol] Negative Normal Negative [facility] Comment on above: Order Comment: Speci men Type: URINE SPECIMENOrdering Facility: [facility] Address: [address] [place] [address] Performed By: #### 2 4356-8 ####[facility] LABIA [id number] [place] [address] [place] Hemoglobin Ql (U) Negative Normal Negative [facility] Comment on above: Order Comment: Speci men Type: URINE SPECIMENOrdering Facility: [facility] Address: [address] [place] [address] Performed By: #### 2 4356-8 ####[facility] LABCLIA [id number] [place] [address] [place] Ketones Ql (U) Negative Normal Negative [facility] Comment on above: Order Comment: Speci men Type: URINE SPECIMENOrdering Facility: [facility] Address: [address] [place] [address] Performed By: #### 2 4356-8 ####[facility] LABIA [id number] [address] Leukocyte esterase Test strip Ql (U) 2+ Abnormal Negative [facility] Comment on above: Order Comment: Speci men Type: URINE SPECIMENOrdering Facility: [facility] Address: [address] [place] [address] Performed By: #### 2 4356-8 ####[facility] LABCLIA [id number] [place] [address] [place] Nitrite Ql (U) Negative Normal Negative [facility] Comment on above: Order Comment: Speci men Type: URINE SPECIMENOrdering Facility: [facility] Address: [address] [place] [address] Performed By: #### 2 4356-8 ####[facility] LABCLIA [id number] [place] [address] [place] pH (U) 6.0 [pH] Normal 5.0-8.0 [facility] Comment on above: Order Comment: Speci men Type: URINE SPECIMENOrdering Facility: [facility] Address: [address] [place] [address] Performed By: #### 2 4356-8 ####[facility] LABCLIA [id number] [place] [address] [place] Protein (U) [Mass/Vol] Negative Normal Negative [facility] Comment on above: Order Comment: Speci men Type: URINE SPECIMENOrdering Facility: [facility] Address: [address] [place] [address] Performed By: #### 2 4356-8 ####[facility] LABIA [id number] [place] [address] [place] RBC LM.HPF (Urine sed) [#/Area] 3-5 /HPF Abnormal 0-3 /HPF [facility] Comment on above: Order Comment: Speci men Type: URINE SPECIMENOrdering Facility: [facility] Address: [address] [place] [address] Performed By: #### 2 4356-8 ####[facility] [id number] [place] [address] [place] Specific gravity (U) [Rel density] 1.015 Normal 1.005-1.030 [facility] Comment on above: Order Comment: Speci men Type: URINE SPECIMENOrdering Facility: [facility] Address: [address] [place] [address] Performed By: #### 2 4356-8 ####[facility] [id number] [address] Urobilinogen Ql (U) 0.2 EU/dL Normal 0.2-1.0 EU/dL [facility] Comment on above: Order Comment: Speci men Type: URINE SPECIMENOrdering Facility: [facility] Address: [address] [place] [address] Performed By: #### 2 4356-8 ####[facility] [id number] [address] [place] WBC LM.HPF (Urine sed) [#/Area] 11-25 /HPF Abnormal 0-5 /HPF [facility] Comment on above: Order Comment: Speci men Type: URINE SPECIMENOrdering Facility: [facility] Address: [address] [place] [address] Performed By: #### 2 4356-8 ####[facility] LABIA [id number] [place] [id number] [place] Bacteria Ur Culton Bacteria identified Cx Nom (U) ORGANISM ID: 1 10,000 -<50,000 CFU/ml Normal urogenital holland Normal [facility] Comment on above: Performed By: #### 6 30-4 #### [facility] LAB CLIA [id number] [address] [place], [place] [address] [id number] [place] [address] [place] CNOVon 04-25-2024 CNOV Office Visit (URUN) DOM AVILA ([id number]) 1955 F Date Time Provider Department 04/25/24 8:00 AM ORI LANDIN During your visit today, we recorded the following information about you: Pulse Blood pressure 60/minute 156/73 Lachelle Lemons 04/25/2024 9:28 AM Signed PVR 0 ml Ori Landin DO 04/25/2024 9:28 AM Signed 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), Colon polyp (2011), Controlled type 2 diabetes mellitus without complication, without long-term current use of insulin ([facility]) (10/22/2016), De Quervain's tenosynovitis, left (07/31/2019), Diabetic eye exam ([facility]) (01/16/2016), Ductal carcinoma in situ (DCIS) of [...] includes the following prescription(s): doxycycline, coenzyme q10, hwapjs-byqhmlgy-ulwjby e, lisinopril, estradiol, tamoxifen, pioglitazone, omeprazole, calcium citrate-vitamin d3, ezetimibe, ammonium lactate, clobetasol propionate, acetaminophen, nitroglycerin subli (more content not included)... Normal [facility] UA DIP, URINE (POC)on 2023 BILIRUBIN UA (POCT) Negative Negative [facility] CLARITY UA (POCT) Clear [facility] COLOR UA (POCT) Yellow [facility] GLUCOSE UA (POCT) Negative Negative mg/dL [facility] Hemoglobin Ql (U) Negative Negative [facility] Interpretation and review of laboratory results Abnormal [facility] KETONE UA (POCT) Negative Negative mg/dL [facility] LEUKOCYTES UA (POCT) Moderate Abnormal Negative [facility] NITRITE UA (POCT) Negative Negative [facility] PH UA (POCT) 6.0 4.5 - 8.0 [facility] Protein Ql (U) Negative Negative mg/dL [facility] SPECIFIC GRAVITY UA (POCT) 1.010 1.005 - 1.030 [facility] UROBILINOGEN UA (POCT) 0.2 Normal E.U./d L [facility] Location:[facility], [address] [place] [address] [facility], [place], [place], [address] [place] [address] POINT OF CARE [facility] Urinalysis complete panel (U )Ordered By: Yennifer Veliz on 04-25-2024 Bilirubin Ql (U) Negative Negative [facility] Clarity (Unsp spec) Clear Clear [facility] Color (U) Yellow Yellow [facility] Epithelial cells LM.HPF (Urine sed) [#/Area] Few Abnormal None Seen /HPF [facility] Glucose Test strip (U) [Mass/Vol] Negative Negative [facility] Hemoglobin Ql (U) Negative Negative [facility] Interpretation and review of laboratory results Abnormal [facility] Ketones Ql (U) Negative Negative [facility] Leukocyte esterase Test strip Ql (U) 3+ Abnormal Negative [facility] Nitrite Ql (U) Negative Negative [facility] pH (U) 6.0 [pH] 5.0 - 8.0 [facility] Protein (U) [Mass/Vol] Negative Negative [facility] RBC LM.HPF (Urine sed) [#/Area] 0-3 /HPF 0-3 /HPF [facility] Specific gravity (U) [Rel density] 1.010 1.005 - 1.030 [facility] Urobilinogen Ql (U) 0.2 EU/dL 0.2-1.0 EU/dL Cl [facility] WBC LM.HPF (Urine sed) [#/Area] 11-25 /HPF Abnormal 0-5 /HPF [facility] Urinalysis complete panel (U )on 04-25-2024 Bilirubin Ql (U) Negative Normal Negative [facility] Comment on above: Order Comment: Speci men Type: URINE SPECIMENOrdering Facility: [facility] Address: [address] [place] [address] Performed By: #### 2 4356-8 ####[facility] LABCLIA [id number] [place] [address] [place] Clarity (Unsp spec) Clear Normal Clear [facility] Comment on above: Order Comment: Speci men Type: URINE SPECIMENOrdering Facility: [facility] Address: [address] [place] [address] Performed By: #### 2 4356-8 ####[facility] LABIA [id number] [place] [address] [place] Color (U) Yellow Normal Yellow [facility] Comment on above: Order Comment: Speci men Type: URINE SPECIMENOrdering Facility: [facility] Address: [address] [place] [address] Performed By: #### 2 4356-8 ####[facility] LABCLIA [id number] [address] [place] Epithelial cells LM.HPF (Urine sed) [#/Area] Few Normal [facility] Comment on above: Order Comment: Speci men Type: URINE SPECIMENOrdering Facility: [facility] Address: [address] [place] [address] Result Comment: Few Performed By: #### 2 4356-8 ####[facility] LABCLIA [id number] [address] [place] Glucose Test strip (U) [Mass/Vol] Negative Normal Negative [facility] Comment on above: Order Comment: Speci men Type: URINE SPECIMENOrdering Facility: [facility] Address: [address] [place] [address] Performed By: #### 2 4356-8 ####[facility] LABCLIA [id number] [place] [address] [place] Hemoglobin Ql (U) Negative Normal Negative [facility] Comment on above: Order Comment: Speci men Type: URINE SPECIMENOrdering Facility: [facility] Address: [address] [place] [address] Performed By: #### 2 4356-8 ####[facility] LABCLIA [id number] [address] STATES [facility] Ketones Ql (U) Negative Normal Negative [facility] Comment on above: Order Comment: Speci men Type: URINE SPECIMENOrdering Facility: [facility] Address: [address] [place] [address] Performed By: #### 2 4356-8 ####[facility] LABIA [id number] [address] Leukocyte esterase Test strip Ql (U) 3+ Abnormal Negative [facility] Comment on above: Order Comment: Speci men Type: URINE SPECIMENOrdering Facility: [facility] Address: [address] [place] [address] Performed By: #### 2 4356-8 ####[facility] LABIA [id number] [place] [address] [place] Nitrite Ql (U) Negative Normal Negative [facility] Comment on above: Order Comment: Speci men Type: URINE SPECIMENOrdering Facility: [facility] Address: [address] [place] [address] Performed By: #### 2 4356-8 ####[facility] LABIA [id number] [place] [address] [place] pH (U) 6.0 [pH] Normal 5.0-8.0 [facility] Comment on above: Order Comment: Speci men Type: URINE SPECIMENOrdering Facility: [facility] Address: [address] [place] [address] Performed By: #### 2 4356-8 ####[facility] LABIA [id number] [place] [address] [place] Protein (U) [Mass/Vol] Negative Normal Negative [facility] Comment on above: Order Comment: Speci men Type: URINE SPECIMENOrdering Facility: [facility] Address: [address] [place] [address] Performed By: #### 2 4356-8 ####[facility] [id number] [address] [place] [facility] RBC LM.HPF (Urine sed) [#/Area] 0-3 /HPF Normal 0-3 /HPF [facility] Comment on above: Order Comment: Speci men Type: URINE SPECIMENOrdering Facility: [facility] Address: [address] [place] [address] Performed By: #### 2 4356-8 ####[facility] [id number] [address] [place] [facility] Specific gravity (U) [Rel density] 1.010 Normal 1.005-1.030 [facility] Comment on above: Order Comment: Speci men Type: URINE SPECIMENOrdering Facility: [facility] Address: [address] [place] [address] Performed By: #### 2 4356-8 ####[facility] [id number] [address] Urobilinogen Ql (U) 0.2 EU/dL Normal 0.2-1.0 EU/dL [facility] Comment on above: Order Comment: Speci men Type: URINE SPECIMENOrdering Facility: [facility] Address: [address] [place] [address] Performed By: #### 2 4356-8 ####[facility] [id number] [address] [place] WBC LM.HPF (Urine sed) [#/Area] 11-25 /HPF Abnormal 0-5 /HPF [facility] Comment on above: Order Comment: Speci men Type: URINE SPECIMENOrdering Facility: [facility] Address: [address] [place] [address] Performed By: #### 2 4356-8 ####[facility] [id number] [place] [address] [place] Cardiology Visit Reporton Cardiology Visit Report [facility] [address] [place] [address] OFFICE VISIT Date of Service: 04/21/24 MR#: [id number] Acct: [id number] Name: DOM AVILA Rep #: [id number] : 1955 Provider: Dr. Karsten Zarate MD Age/Sex: 68/F Location: [facility] Status: Signed HPI HPI History of [...] Visit Reasons: 1 YR F/U (PFM PT) Sensitizer Required: No Accompanied by: None Is patient in pain?: No Allergies lovastatin Allergy (Intermediate, Verified 04/21/24 13:37) Other rosuvastatin (From Crestor) Allergy (Intermediate, Verified 04/21/24 13:37) Other ticagrelor (From Brilinta) Allergy (Intermediate, Verified 04/21/24 13:37) Shortness of breath atorvastatin Allergy (Unknown, Verified 04/21/24 13:37) myalgia hydrocodone Allergy (Verified 04/21/24 13:37) Hives cephalexin monohydrate (From [email or web address] Adverse Reaction (Verified 04/21/24 13:37) Other pravastatin [...] mg PO DAILY 11/30/22 04/21/24 History release [id number] e See Rx Instructions PO .COMPLEX 03/04/23 [...] pressure) dependence (more content not included)... Normal [facility] ALBUMIN/CREATININE RATIO, UR INEon 04-17-2024 Albumin DL <= 20 mg/L (U) [Mass/Vol] mg/L mg/L [facility] Albumin/Creatinine (U) [Mass ratio] mg/g NINF - 30 mg/g [facility] Comment on above: Adult Male and Femal [...] [Mass/Vol] 100.9 mg/dL 20.0 - 300.0 mg/dL [facility] CBC W Auto Differential pane l (Bld)on 04-17-2024 Basophils (Bld) [#/Vol] [facility] Basophils/100 WBC (Bld) 0.4 % [facility] Differential cell count method Nom (Bld) Auto [facility] Eosinophils (Bld) [#/Vol] 0.07 10*3/uL [facility] Eosinophils/100 WBC (Bld) 1.3 % [facility] Erythrocyte distribution width (RBC) [Ratio] 14.2 % 11.5 - 15.0 % [facility] Hematocrit (Bld) [Volume fraction] 38.3 % 36.0 - 46.0 % [facility] Hemoglobin (Bld) [Mass/Vol] 12.4 g/dL 11.5 - 15.5 g/dL [facility] Immature granulocytes (Bld) [#/Vol] [facility] Immature granulocytes/100 WBC (Bld) 0.2 % [facility] Lymphocytes (Bld) [#/Vol] 1.82 10*3/uL [facility] Lymphocytes/100 WBC (Bld) 34.9 % [facility] MCH (RBC) [Entitic mass] 30.7 pg 26.0 - 34.0 pg [facility] MCHC (RBC) [Mass/Vol] 32.4 g/dL 30.5 - 36.0 g/dL [facility] MCV (RBC) [Entitic vol] 94.8 fL 80.0 - 100.0 fL [facility] Monocytes (Bld) [#/Vol] 0.47 10*3/uL [facility] Monocytes/100 WBC (Bld) 9.0 % [facility] Neutrophils (Bld) [#/Vol] 2.83 10*3/uL [facility] Neutrophils/100 WBC (Bld) 54.2 % [facility] Nucleated RBC (Bld) [#/Vol] [facility] Nucleated RBC/100 WBC (Bld) [Ratio] 0.0 % /100 WBC [facility] Platelet mean volume (Bld) [Entitic vol] 9.9 fL 9.0 - 12.7 fL [facility] Platelets (Bld) [#/Vol] 204 10*3/uL [facility] RBC (Bld) [#/Vol] 4.04 10*6/uL 3.90 - 5.2 0 m/uL [facility] WBC (Bld) [#/Vol] 5.22 10*3/uL [facility] Comprehensive metabolic 2000 panelon 04-17-2024 Albumin [Mass/Vol] 3.8 g/dL Low 3.9 - 4.9 g/dL Cl [facility] ALP [Catalytic activity/Vol] 37 U/L 34 - 123 U/L [facility] ALT [Catalytic activity/Vol] 11 U/L 7 - 38 U/L [facility] Anion gap [Moles/Vol] 11 mmol/L 8 - 15 mmol/L [facility] AST [Catalytic activity/Vol] 20 U/L 13 - 35 U/L [facility] Bilirubin [Mass/Vol] 0.2 mg/dL 0.2 - 1 .3 mg/dL [facility] Calcium [Mass/Vol] 8.9 mg/dL 8.5 - 10. 2 mg/dL [facility] Chloride [Moles/Vol] 105 mmol/L 98 - 10 7 mmol/L [facility] CO2 [Moles/Vol] 26 mmol/L 22 - 30 mmol/L [facility] Creatinine [Mass/Vol] 0.78 mg/dL 0.58 - 0.96 mg/dL [facility] GFR/1.73 sq M.predicted among non-blacks MDRD (S/P/Bld) [Vol rate/Area] 84 mL/min/{1.73_m2} - PINF [facility] Comment on above: Estimated Glomerular Filtration Rate [...] 119 mg/dL High 74 - 99 mg/dL [facility] Comment on above: The [place] Diabete s Association (ADA) provides guidance for [...] Standards of Medical Care in Diabetes 2016, [place] Diabetes Association. Diabetes Care. 2016.39(Suppl 1). Potassium [Moles/Vol] 4.1 mmol/L 3.7 - 5.1 mmol/L [facility] Protein [Mass/Vol] 6.3 g/dL 6.3 - 8.0 g/dL [facility] Sodium [Moles/Vol] 142 mmol/L 136 - 144 mmol/L [facility] Urea nitrogen [Mass/Vol] 11 mg/dL 7 - 21 mg/dL [facility] HbA1c (Bld)on 04-17-2024 Average glucose Estimated from glycated hemoglobin (Bld) [Mass/Vol] 166 mg/dL [facility] Comment on above: eAG: (Estimated aver age glucose) is a calculated value from HgbA1c and is pharmacy services representative of the average blood glucose level in the last 2-3 month period. HbA1c (Bld) [Mass fraction] 7.4 % High 4.3 - 5.6 % [facility] Comment on above: [place] Diabetes As sociation guidelines indicate that patients with HgbA1c in the range 5.7-6.4% are at increased risk for development of diabetes, and intervention by lifestyle modification may be beneficial. HgbA1c greater or equal to 6.5% is considered diagnostic of diabetes. Interpretation and review of laboratory results Abnormal [facility] LIPID PANEL, NONFASTINGon Cholesterol [Mass/Vol] 153 mg/dL NINF - 200 mg/dL [facility] Comment on above: <200 mg/dL, Desirabl e 200-239 mg/dL, Borderline high >239 mg/dL, High HDL Cholesterol, Nonfasting 36 mg/dL Low 39 - PINF mg/dL [facility] Comment on above: 40-59 mg/dL, Accepta ble >59 mg/dL, High: Negative risk factor for coronary heart disease <40 mg/dL, Low: Positive risk factor for coronary heart disease LDL Cholesterol, Nonfasting 91 mg/dL NINF - 100 mg/dL [facility] Comment on above: <100 mg/dL, Optimal 100-129 mg/dL, Near optimal/above optimal 130-159 mg/dL, Borderline high 160-189 mg/dL, High >189 mg/dL, Very high Secondary prevention optimal LDL Cholesterol levels are recommended to be < 70 mg/dL LDL/HDL Ratio, Nonfasting 2.53 mg/dL NINF - 2.54 mg/dL [facility] Comment on above: Reference: 1. National Cholesterol Education Program ATP III Guideline At-A-Glance Quick Desk Reference: National Heart, Lung, and Blood [place]. National Institutes of Health. 2001: NIH Publication No. 01-3305. 2. An International Atherosclerosis Society position paper: global recommendations for the management of dyslipidemia: executive summary, Atherosclerosis. 2014: 232(2):410-413. Non HDL Cholesterol, Nonfasting 117 mg/dL NINF - 130 mg/dL [facility] Comment on above: <130 mg/dL, Optimal 130-159 mg/dL, Near optimal/above optimal 160-189 mg/dL, Borderline high 190-219 mg/dL, High >219 mg/dL, Very high Secondary prevention optimal non HDL Cholesterol levels are recommended to be <100 mg/dL Total Chol/HDL Ratio, Nonfasting 4.25 mg/dL NINF - 5.10 mg/dL [facility] Triglycerides, Nonfasting 132 mg/dL NINF - 150 mg/dL [facility] Comment on above: <150 mg/dL, Normal 150-199 mg/dL, Borderline high 200-499 mg/dL, High >499 mg/dL, Very high VLDL Cholesterol, Nonfasting 26 mg/dL NINF - 30 mg/dL [facility] No Panel Informationon 04-17 Interpretation and review of laboratory results Abnormal [facility] Urinalysis complete panel (U )on 04-17-2024 Bacteria LM.HPF (Urine sed) [#/Area] Negative Negative /HPF [facility] Bilirubin Ql (U) Negative Negative [facility] Clarity (Unsp spec) Cloudy Abnormal Clear [facility] Color (U) Yellow Yellow [facility] Epithelial cells LM.HPF (Urine sed) [#/Area] Moderate /HPF [facility] Glucose Test strip (U) [Mass/Vol] Negative Negative [facility] Hemoglobin Ql (U) Negative Negative [facility] Hyaline casts (Urine sed) [#/Area] 0 /[LPF] 0 /LPF [facility] Interpretation and review of laboratory results Abnormal [facility] Ketones Ql (U) Negative Negative [facility] Leukocyte esterase Test strip Ql (U) 2+ Abnormal Negative [facility] Nitrite Ql (U) Negative Negative [facility] pH (U) 6.0 [pH] NINF - 8.5 [facility] Protein (U) [Mass/Vol] Negative Negative [facility] RBC LM.HPF (Urine sed) [#/Area] 11-20 /HPF Abnormal 0-2 /HPF [facility] Specific gravity (U) [Rel density] 1.017 1.005 - 1.030 [facility] Urobilinogen Ql (U) 0.2 EU/dL 0.2-1.0 EU/dL [facility] WBC LM.HPF (Urine sed) [#/Area] 0-5 /HPF 0-5 /HPF [facility] Result rechecked This test was developed and its performance characteristics determined by [facility] [place] ([facility]). It has not been cleared or approved by the FDA. [facility] is regulated under CLIA as qualified to perform high-complexity testing. This test is used for clinical purposes. It should not be regarded as investigational or for research. [facility] COVID & INFLUENZA A/B & RSV NAAT, ROUTINEon 03-23-2024 FLUAV RNA MICHAEL+probe Ql (Unsp spec) Not detected Not Detected [facility] FLUBV RNA MICHAEL+probe Ql (Unsp spec) Not detected Not Detected [facility] Interpretation and review of laboratory results Normal [facility] RSV A RNA MICHAEL+probe Ql (Unsp spec) Not detected Not Detected [facility] SARS-CoV-2 (COVID-19) RNA MICHAEL+probe Ql (Resp) Not detected See comment [facility] Comment on above: The method used is R T-PCR or an equivalent NAAT method. Reference Range (the expected result in uninfected individuals): Not detected For upper respirator y tract samples, this test has been authorized by FDA under Emergenecy Use Authorization (EUA). For lower respiratory tract samples, this test was developed and its performance characteristics determined by [facility] ([facility]). It has not been cleared or approved by the FDA. [facility] is regulated under CLIA as qualified to perform high-complexity testing. This test is used for clinical purposes. It should not be regarded as investigational or for research. Test performed by [facility], [facility] [place], [address], [place], [place] [address]. [facility] STREP A MOLECULAR (POC)on Procedural Control Valid [facility] Strep A (POCT) Negative Negative [facility] DBT Breast - bilateral scree rajigon 03-09-2024 IMPRESSION: BENIGN FINDING There is no mammographic evidence of malignancy. A 1 year screening mammogram is recommended. Paresh grimaldo/christian:03/09/2024 21:41:09 Administrative Office Manager(s): Debby Lin RT(R)(M), [facility] letter sent: Normal over 40 Mammogram [...] Health, Family Medicine, and Medical/Surgical Oncology, the [facility] has carefully reviewed the data and reached [...] their providers when to stop screening mammograms. Double Cutter: Christian Transcribe Date/Time: Mar 09 2024 8:22A Dictated by: PARESH HWANG MD This examination was interpreted and the report reviewed and electronically signed by: PARESH HWANG MD on Mar 09 2024 9:41PM [facility] DIVISION OF RADIOLOGY * * *Final Report* * * DATE OF EXAM: Mar 09 2024 8:44AM [id number] - [facility] SCREENING W ANGELA / PROCEDURE REASON: multiple diagnoses * * * * Physician Interpretation * * * * RESULT: #[id number] - [facility] SCREENING W ANGELA BILATERAL DIGITAL [...] mammogram, 02/23/2022 mammogram, and 02/21/2021 mammogram - [facility]. There are scattered areas of fibroglandular density. There are benign post operative findings in the left breast. No significant masses, calcifications, or other findings are seen in either breast. There has been no significant interval change. DIVISION OF RADIOLOGY Provider, [facility] - 03/09/2024 * * *Final Report* * * DATE OF EXAM: Mar 09 2024 8:44AM [id number] - [facility] SCREENING W ANGELA / PROCEDURE REASON: multiple diagnoses * * * * Physician Interpretation * * * * RESULT: #[id number] - [facility] SCREENING W ANGELA BILATERAL DIGITAL SCREENING [...] mammogram, 02/23/2022 mammogram, and 02/21/2021 mammogram - [facility]. There are scattered areas of fibroglandular density. There are benign post operative findings in the left breast. No significant masses, calcifications, or other findings are seen in either breast. There has been no significant interval change. IMPRESSION IMPRESSION: BENIGN FINDING There is no mammographic evidence of malignancy. A 1 year screening mammogram is recommended. Paresh grimaldo/christian:03/09/2024 21:41:09 Administrative Office Manager(s): Debby Lin RT(R)(M), [facility] letter sent: Normal over 40 Mammogram [...] Health, Family Medicine, and Medical/Surgical Oncology, the [facility] has carefully reviewed the data and reached [...] their providers when to stop screening mammograms. Double Cutter: Christian Transcribe Date/Time: Mar 09 2024 8:22A Dictated by: PARESH HWANG MD This examination was interpreted and the report reviewed and electronically signed by: PARESH HWANG MD on Mar 09 2024 9:41PM EST [facility] Radiology Study observation (narrative) [facility] DBT Breast - bilateral scree ningOrdered By: [facility] Provider on 03-09-2024 [facility] Microscopic observation Gram stain Nom (Vag fld)on 01-19-2024 Bacterial Vaginosis BACTERIAL VAGINOSIS RESULT: Stain results consistent with normal vaginal [place]. [facility] Bacterial Vaginosis No Yeast observed [facility] Bacterial Vaginosis No Polymorphonuclear Leukocytes [facility] UA DIP, URINE (POC)on 2023 BILIRUBIN UA (POCT) Negative Negative [facility] CLARITY UA (POCT) Clear [facility] COLOR UA (POCT) Yellow [facility] GLUCOSE UA (POCT) Negative Negative mg/dL [facility] Hemoglobin Ql (U) Negative Negative [facility] KETONE UA (POCT) Negative Negative mg/dL [facility] LEUKOCYTES UA (POCT) Small Abnormal Negative [facility] NITRITE UA (POCT) Negative Negative [facility] PH UA (POCT) 5.5 4.5 - 8.0 [facility] Protein Ql (U) Negative Negative mg/dL [facility] SPECIFIC GRAVITY UA (POCT) 1.010 1.005 - 1.030 [facility] UROBILINOGEN UA (POCT) 0.2 E.U./dL Normal E.U./ dL [facility] MRCP Abdomen without Contras ton 01-03-2024 MRCP Abdomen without Contrast [facility] Imaging Services [address] [place] [address] MRCP Abdomen without Contrast MR#: [id number] Acct: [id number] Name: DOM AVILA Rep #: [id number] : 1955 F 68 From: Tony Condon MD PCP: Dr. Clifton Hung MD Status: DEP CLI Study: MRCP Abdomen without Contrast Date of Exam: Exam# [id number] Ordering Dr: Carson Alcantar DO ADDENDUM by Dr. Tony Condon MD on 01/27/24 at 1059 ====== ADDENDUM ====== [id number] Report correction: Pancreas resection should state: Pancreas [...] Hung MD; Carson Alcantar DO * Signed [id number] EXAM: MR ABDOMEN WITHOUT INTRAVENOUS CONTRAST, MRCP [...] Dr. 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 Normal [facility] Chest 1 View (Portable)on Chest 1 View (Portable) [facility] Imaging Services [address] [place] [address] Chest 1 View (Portable) MR#: [id number] Acct: [id number] Name: DOM AVILA Rep #: [id number] : 1955 F 68 From: Reji xiong MD PCP: Dr. Clifton Hung MD Status: REG ER Study: Chest 1 View (Portable) Date of Exam: 12/22/23 Exam# [id number] Ordering Dr: Caro Pedro MD [id number] STUDY: X-RAY CHEST REASON FOR EXAM: Female, [...] 14:33 EST Reading Location ID and State: [facility] / [place] , Service support , CC: Dr. Clifton Hung MD; Dr. Caro Pedro MD Double Cutter: Signed Normal [facility] Emergency Department Summary on 12-22-2023 Emergency Department Summary [facility] Medical Records Department [address] [place] [address] Emergency Department Summary 12/22/23 MR#: [id number] Acct: [id number] Name: DOM AVILA Rep #: [id number] : 1955 68 From: Caro Pedro MD [...] mild diarrhea but no nausea or vomiting. 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 Normal [facility] Laboratory - Microbiology an d Antimicrobial susceptibilityOrdered By: Caro Pedro on 12-22-2023 SARS-CoV-2 (COVID-19) RNA MICHAEL+probe Ql (Unsp spec) Influenzae A [facility] M100.678on 12-22-2023 M100.678 RESULTS CALLED TO Vel TAYLOR 12/22/23 1455 [place] Le[place]. REPORT READ BACK BY SANDRA. COV + FLU + RSV PCR Copy of report sent to Infection Control Printer [id number] 12/22/23 5608 RADHA. COV + FLU + RSV PCR Normal Reference Range = Negative COV + FLU + RSV PCR GeneXpert Instrument, PCR method SARS-CoV-2 (COVID 19) Negative INFLUENZA A Positive A INFLUENZA A Positive A RSV PCR Negative FLUA Normal [facility] Comment on above: Performed By: #### M 100.678 ####[facility] [address] [place], [place], [address] Carbohydrate AG 19-9on 12-10 CA 19-9 38 U/mL High 0-35 [facility] Comment on above: Result Comment: [employer] Electrochemiluminescence Immunoassay (ECLIA) Values obtained with different assay methods or kits cannot be used interchangeably. Results cannot be interpreted as absolute evidence of the presence or absence of malignant disease. Performed at: [address] [id number] [employer] Supervisor: Timoteo Berumen PhD, Phone: [phone] Performed By: #### L 3100.5020, L501.2450, L501.2400 ####[facility] [address] [place], [address] Amylaseon 12-08-2023 SIMA 59 U/L Normal - [facility] Comment on above: Performed By: #### L 3100.5020, L501.2450, L501.2400 ####[facility] [address] [place], [place], [address] Basophil percentageOrdered B y: Carson Alcantar on 12-08-2023 Amylase [Catalytic activity/Vol] 59 U/L -115 [facility] Laboratory - Chemistry and C hemistry - challengeOrdered By: Carson Alcantar on 12-08-2023 Lipase [Catalytic activity/Vol] 124 U/L [facility] Comment on above: Please note:LIPASE r evised reference range effective 23. New Lipase methodology. Expected to produce lower values than the previous assay method. NEW Reference Range: 13 - 75 U/L Lipaseon 12-08-2023 Lipase [Catalytic activity/Vol] 124 U/L High [facility] Comment on above: Result Comment: Rom mendosa note: LIPASE revised reference range effective 23. New Lipase methodology. Expected to produce lower values than the previous assay method. NEW Reference Range: 13 - 75 U/L Performed By: #### L 3100.5020, L501.2450, L501.2400 ####[facility] [address] [place], [place], [address] No Panel InformationOrdered By: Carson Alcantar on 12-08-2023 CA 19-9 Antigen 38 U/mL 0-35 [facility] Comment on above: [employer] El ectrochemiluminescence Immunoassay(ECLIA)Values obtained with different assay methods or kits cannotbe used interchangeably. Results cannot be interpreted asabsolute evidence of the presence or absence of malignantdisease.Performed at: [employer] [address] [id number] Director: Timoteo Berumen PhD, Phone: [phone] Gastroenterology Visit Repor ton 12-06-2023 Gastroenterology Visit Report [facility] Gastroenterology [address] [facility] [place] 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 Exam (more content not included)... Normal [facility] Influenza virus A and B and SARS-CoV-2 (COVID-19) Ag panel - Upper respiratory specimOrdered By: Ron Alan on 09-11-2023 SARS-CoV-2 & FLU Antigen (Rapid) SARS-CoV-2 (COVID 19) [facility] UA DIP, URINE (POC)on 2022 BILIRUBIN UA (POCT) Negative Negative [facility] CLARITY UA (POCT) Cloudy [facility] COLOR UA (POCT) Yellow [facility] GLUCOSE UA (POCT) Negative Negative mg/dL [facility] Hemoglobin Ql (U) Trace-intact Abnormal Negative [facility] KETONE UA (POCT) Negative Negative mg/dL [facility] LEUKOCYTES UA (POCT) Moderate Abnormal Negative [facility] NITRITE UA (POCT) Negative Negative [facility] PH UA (POCT) 5.5 4.5 - 8.0 [facility] Protein Ql (U) Negative Negative mg/dL [facility] SPECIFIC GRAVITY UA (POCT) 1.015 1.005 - 1.030 [facility] UROBILINOGEN UA (POCT) 0.2 E.U./dL Normal E.U./ dL [facility] GUILLERMINA SCREENINGon 02-24-2023 [facility] CORONAVIRUS PCR - [facility] 01-12-2023 SARS-CoV-2 (COVID-19) RNA MICHAEL+probe Ql (Unsp spec) Negative Normal NORMAL: NEGATIVE [facility] Comment on above: Performed By: #### 2 [id number] #### [facility],[address] [place] [address] SEND TO IC? NO Normal [facility] Comment on above: Result Comment: RESU LTS FAXED TO INFECTION CONTROL. SARS-CoV-2 THIS TEST IS BEING USED UNDER THE FDA EUA PROCEDURE. THIS ASSAY HAS BEEN VALIDATED IN THE [facility] FOR USE WITH NASOPHARYNGEAL SPECIMENS IN [facility]. INTERPRETIVE DATA LABORATORY TEST RESULTS SHOULD ALWAYS [...] PUBLIC HEALTH AUTHORITIES. Performed By: #### 2 [id number] #### [facility],[address] [id number] Glucose Glucometer (BldC) [M ass/Vol]Ordered By: Carson Alcantar on 12-01-2022 Glucose [Mass/Vol] 192 mg/dL 74-106 [facility] Comment on above: MANAGEMENT OF PATIEN T CARE PER NURSING PROTOCOL CT ABD/PEL W IVCONon 023 [facility] No Panel InformationOrdered By: Karin Coles on 11-23-2022 Stool Neutral Fats Increased . [facility] Comment on above: Normal (<60 Droplets /HPF) Stool Pancreatic Elastase > 500 >200 [facility] Comment on above: Result Units: ug [address] st./g Severe Pancreatic Insufficiency: <100 Moderate Pancreatic Insufficiency: 100 - 200 Normal: >200Performed at: - [facility] [address] [id number] Director: Benson Osei MD, Phone: [phone] Qualitative fecal fat or lip idsOrdered By: Karin Coles on 11-23-2022 Fat Ql (Stl) Normal . [facility] Comment on above: Normal (<100 Droplet s/HPF)Performed at: - [facility] [address] [id number] Director: Timoteo Berumen PhD, Phone: [phone] Absolute lymphocyte countOrd ered By: Karin Coles on 11-19-2022 Lymphocytes Auto (Unsp spec) [#/Vol] 1.59 10*3/uL 0.83-4.51 [facility] Basophil percentageOrdered B y: Karin Coles on 11-19-2022 Amylase [Catalytic activity/Vol] 58 U/L 25-115 [facility] Basophils/100 WBC (Bld) 0.5 % 0-1 [facility] Bilirubin [Mass/Vol] 0.30 mg/dL 0.20-1.00 [facility] Comment on above: For patients on eltr ombopag therapy, use of Dimension [place] TBIL is not recommended. Chloride [Moles/Vol] 103 mmol/L 98-107 [facility] Eosinophils/100 WBC (Bld) 1.6 % 0-5 [facility] Glucose [Mass/Vol] 193 mg/dL 74-106 [facility] Comment on above: Fasting Glucose resu lt greater than or equal to 126 mg/dL suggests DIABETES MELLITUS per A.D.A. criteria. LDH [Catalytic activity/Vol] 169 U/L 84-246 [facility] Neutrophils (Bld) [#/Vol] 3.5 10*3/uL 2.0-7.7 [facility] Neutrophils/100 WBC (Bld) 61.4 % 47-70 [facility] Potassium [Moles/Vol] 4.1 mmol/L 3.5-5.1 [facility] Protein [Mass/Vol] 6.9 g/dL 6.4-8.2 [facility] Sodium [Moles/Vol] 139 mmol/L 136-145 [facility] WBC (Bld) [#/Vol] 5.7 10*3/uL 4.4-11.0 [facility] Blood erythrocytes count (nu mber/volume)Ordered By: Karin Coles on 11-19-2022 RBC (Bld) [#/Vol] 3.99 10*6/uL 4.2-5.4 [facility] Blood hemoglobin measurement (mass/volume)Ordered By: Karin Coles on 11-19-2022 Hemoglobin (Bld) [Mass/Vol] 12.5 g/dL 12.0-15.0 [facility] Blood lymphocytes/100 leukoc ytesOrdered By: Karin Coles on 11-19-2022 Lymphocytes/100 WBC (Bld) 27.9 % 19-41 [facility] Blood monocytes/100 leukocyt esOrdered By: Karin Coles on 11-19-2022 Monocytes/100 WBC (Bld) 8.2 % 0-10 [facility] Blood platelet mean volumeOr dered By: Karin Coles on 11-19-2022 Platelet mean volume (Bld) [Entitic vol] 9.7 fL 6.2-12.0 [facility] Determination of erythrocyte mean corpuscular volume (MCV)Ordered By: Karin Coles on 11-19-2022 MCV (RBC) [Entitic vol] 94.5 fL 81-99 [facility] Erythrocyte sedimentation ra teOrdered By: Karin Coles on 11-19-2022 ESR (Bld) [Velocity] 7 mm/h 0-30 [facility] Hematocrit Auto (Bld) [Volum e fraction]Ordered By: Karin Coles on 11-19-2022 Hematocrit (Bld) [Volume fraction] 37.7 % 37-47 [facility] Laboratory - Chemistry and C hemistry - challengeOrdered By: Karin Coles on 11-19-2022 ALP [Catalytic activity/Vol] 40 U/L 45-117 [facility] ALT [Catalytic activity/Vol] 21 U/L 13-56 [facility] CO2 [Moles/Vol] 29.0 mmol/L 21.0-32.0 [facility] Globulin (S) [Mass/Vol] 3.5 g/dL 2.2-4.2 [facility] Lipase [Catalytic activity/Vol] 490 U/L 73-393 [facility] Urea nitrogen/Creatinine [Mass ratio] 19.2 mg/mg 10-20 [facility] Laboratory - Hematology and Cell countsOrdered By: Karin Coles on 11-19-2022 Erythrocyte distribution width (RBC) [Entitic vol] 46.2 fL 35.1-43.9 [facility] Erythrocyte distribution width (RBC) [Ratio] 13.4 % 11.6-14.6 [facility] Immature granulocytes/100 WBC (Bld) 0.400 % 0.0-0.9 [facility] Comment on above: IG% - Immature Granu locytes (promyelocytes, myelocytes and metamyelocytes) > 1% indicates that a LEFT SHIFT is Present. MCH (RBC) [Entitic mass] 31.3 pg 27.0-32.0 [facility] Nucleated RBC/100 WBC (Bld) [Ratio] 0 % 0-5 [facility] MCHC Auto (RBC) [Mass/Vol]Or dered By: Karin Coles on 11-19-2022 MCHC (RBC) [Mass/Vol] 33.2 g/dL 32-36 [facility] No Panel InformationOrdered By: Karin Coles on 11-19-2022 CA 19-9 Antigen 35 U/mL 0-35 [facility] Comment on above: [employer] El ectrochemiluminescence Immunoassay(ECLIA)Values obtained with different assay methods or kits cannotbe used interchangeably. Results cannot be interpreted asabsolute evidence of the presence or absence of malignantdisease.Performed at: [employer] [employer] [id number] Director: Timoteo Berumen PhD, Phone: [phone] CA 19-9 Antigen Serial Monitoring Not Reportable [facility] Endomysial IgA Antibody Negative Negative [facility] Estimated GFR (MDRD) Amer 95 mL/min >60 [facility] Comment on above: GFR Calc Estimated GFR (MDRD) Non-Af Amer 79 mL/min >60 [facility] Comment on above: Non- GFR Calc Platelets bldOrdered By: Jacquelyn Coles on 11-19-2022 Platelets (Bld) [#/Vol] 218 10*3/uL 150-450 [facility] Serum IgA measurement (units /volume)Ordered By: Karin Coles on 11-19-2022 IgA Qn (S) 160 mg/dL 87-352 [facility] Serum or plasma C reactive p rotein measurement (mass/volume)Ordered By: Karin Coles on 11-19-2022 CRP [Mass/Vol] 8.32 mg/L 0.0-3.0 [facility] Comment on above: C-Reactive Protein ( CRP) provides useful information for thediagnosis, therapy and monitoring of inflammatory processesand associated diseases. For the evaluation of Relative Riskfor Cardiovascular Disease, a High Sensitivity CRP (HSCRP)should be ordered. Serum or plasma albumin lucio urement (mass/volume)Ordered By: Karin Coles on 11-19-2022 Albumin [Mass/Vol] 3.4 g/dL 3.2-5.0 [facility] Serum or plasma albumin/glob ulin mass ratioOrdered By: Karin Coles on 11-19-2022 Albumin/Globulin [Mass ratio] 1.0 {ratio} 0.9-2.4 [facility] Serum or plasma calcium lucio urement (mass/volume)Ordered By: Karin Coles on 11-19-2022 Calcium [Mass/Vol] 8.9 mg/dL 8.5-10.1 [facility] Serum or plasma creatinine m easurement (mass/volume)Ordered By: Karin Coles on 11-19-2022 Creatinine [Mass/Vol] 0.78 mg/dL 0.55-1.02 [facility] Comment on above: The validity of the calculated GFR & GFRAA in patients over 70 years has not been determined. Clinical correlation is essential. Serum or plasma urea nitroge n measurement (mass/volume)Ordered By: Karin Coles on 11-19-2022 Urea nitrogen [Mass/Vol] 15 mg/dL 7-18 [facility] Serum tissue transglutaminas e IgA antibody assay (units/volume)Ordered By: Karin Coles on 11-19-2022 tTG IgA Qn (S) <2 U/mL 0-3 [facility] Comment on above: Negative 0 - 3 Weak Positive 4 - 10 Positive >10 Tissue Transglutaminase (tTG) has been identified as the endomysial antigen. Studies have demonstr- ated that endomysial IgA antibodies have over 99% specificity for gluten sensitive enteropathy. Thin prep Papanicolaou smear with manual screeningOrdered By: Karin Coles on 11-19-2022 Thin prep Papanicolaou smear with manual screening 13 U/L 15-37 [facility] Thin prep Papanicolaou smear with manual screening 7 5-15 [facility] STREP A MOLECULAR (POC)on Procedural Control Valid [facility] Strep A (POCT) Negative Negative [facility] Influenza virus A and B RNA and SARS-CoV-2 (COVID-19) N gene panel MICHAEL+probe (Resp)on 12-27-2022 FLUAV RNA MICHAEL+probe Ql (Unsp spec) Negative Negative for Influenza A by RT-PCR [facility] FLUBV RNA MICHAEL+probe Ql (Unsp spec) Negative Negative for Influenza B by RT-PCR [facility] SARS-CoV-2 (COVID-19) RNA MICHAEL+probe Ql (Resp) SARS-CoV-2 (Agent of COVID-19) Detected by RT-PCR or equivalent method. Abnormal Not Detected [facility] GUILLERMINA DIAG W ANGELA LTon 022 [facility] US ABD RT UPPER QUADRANTon 1 11-09-2021 [facility] CREATININE BLDon 08-28-2022 Creatinine [Mass/Vol] 0.82 mg/dL 0.58 - 0.96 mg/dL [facility] Estimated Glomerular Filtration Rate 79 mL/min/1.73m >=60 mL/min/1.73m [facility] BACTERIAL VAGINOSIS AMPLIFIC ATIONon 07-09-2022 Lactobacillus crispatus+gasseri+deyanira enii + Gardnerella vaginalis + Atopobium vaginae rRNA MICHAEL+probe Ql (Vag fld) Negative Negative for bacterial vaginosis [facility] CHINO / TRICHOMONAS AMPLIF ICATIONon 07-09-2022 C. glabrata RNA MICHAEL+probe Ql (Vag fld) Negative Negative for [place] glabrata [facility] Chino albicans, C. dubliniensis, C. parapsilosis, and C. tropicalis RNA MICHAEL+probe Ql (Vag fld) Negative Negative for [place] species [facility] T. vaginalis DNA MICHAEL+probe Ql (Unsp spec) Negative Negative for Trichomonas vaginalis by amplification [facility] UA DIP, URINE (POC)on 2021 BILIRUBIN UA (POCT) Negative Negative [facility] CLARITY UA (POCT) Clear [facility] COLOR UA (POCT) Yellow [facility] GLUCOSE UA (POCT) Negative Negative mg/dL [facility] HEMOGLOBIN/BLOOD UA (POCT) Negative Negative [facility] KETONE UA (POCT) Negative Negative mg/dL [facility] LEUKOCYTES UA (POCT) Moderate Abnormal Negative [facility] NITRITE UA (POCT) Negative Negative [facility] PH UA (POCT) 7.0 4.5 - 8.0 [facility] Protein Ql (U) Negative Negative mg/dL [facility] SPECIFIC GRAVITY UA (POCT) 1.015 1.005 - 1.030 [facility] UROBILINOGEN UA (POCT) 0.2 E.U./dL Normal E.U./ dL [facility] Laboratory - Chemistry and C hemistry - challengeon 05-28-2022 Free T4 [Mass/Vol] 0.96 ng/dL 0.76-1.46 [facility] Work Phone: Magnesium [Mass/Vol] 2.0 mg/dL 1.6-2.[address] [facility] Work Phone: No Panel Informationon 05-28 Thyroid Stimulating Hormone (TSH) 2.35 uIU/mL 0.358-3.74 [facility] Work Phone: GUILLERMINA SCREENINGon 02-23-2022 [facility] Office Visiton 07-22-2017 Dietary management education, guidance, and counseling (procedure) yes Invalid Interpretation Code [employer] Work Phone: [phone] Documentation of current medications (procedure) Done Invalid Interpretation Code [employer] Work Phone: [phone] Fall risk assessment No Invalid Interpretation Code [employer] Work Phone: [phone] Protein mass conc Done Invalid Interpretation Code [facility] [employer] Work Phone: [phone] Tobacco smoking status NHIS Former smoker Invalid Interpretation Code [employer] [facility] [employer] Work Phone: [phone] Tobacco use [facility] Former smoker Invalid Interpretation Code [employer] Work Phone: [phone] Replaced Document: [employer] [facility] CG Observationson 07-22-2017 EKG QRS axis -20 deg Invalid Interpretation Code [facility] [employer] Work Phone: [phone] electrocardiogram interpretation Sinus Rhythm - Nonspecific T-abnormality. ABNORMAL Invalid Interpretation Code [facility] [employer] Work Phone: [phone] GE use only - for [employer] import when terms are not otherwise specified 398 ms Invalid Interpretation Code [facility] [employer] Work Phone: [phone] Interpretation Sinus Rhythm - Nonspecific T-abnormality. ABNORMAL Invalid Interpretation Code [employer] Work Phone: [phone] P Salome 35 deg Invalid Interpretation Code [employer] Work Phone: P wave axis, electrocardiogram 35 deg Invalid Interpretation Code [employer] Work Phone: [phone] RI Interval 142 ms Invalid Interpretation Code [employer] Work Phone: [phone] RI interval, electrocardiogram 142 ms Invalid Interpretation Code [employer] Work Phone: [phone] Pulse (Heart Rate) 60 /min Invalid Interpretation Code [employer] Work Phone: [phone] QRS axis, electrocardiogram -20 deg Invalid Interpretation Code [employer] Work Phone: [phone] QRS Duration 104 ms Invalid Interpretation Code [employer] Work Phone: [phone] QRS duration, electrocardiogram 104 ms Invalid Interpretation Code [employer] Work Phone: [phone] QT Interval new path ms Invalid Interpretation Code [employer] Work Phone: [phone] QT interval, electrocardiogram new path ms Invalid Interpretation Code [employer] Work Phone: [phone] QTc Usarez 398 ms Invalid Interpretation Code [employer] Work Phone: [phone] T Salome -1 deg Invalid Interpretation Code [employer] Work Phone: [phone] T wave axis, electrocardiogram -1 deg Invalid Interpretation Code [employer] Work Phone: [phone] Clinical Lists Update: Pre06-30-2017 Left ventricular Ejection fraction 65 % Invalid Interpretation Code [employer] Phone: [phone] Office Visiton 04-23-2017 Dietary management education, guidance, and counseling (procedure) yes Invalid Interpretation Code [employer] Work Phone: [phone] Documentation of current medications (procedure) Done Invalid Interpretation Code [employer] Work Phone: [phone] Fall risk assessment No Invalid Interpretation Code [employer] Phone: [phone] Protein mass conc Done [employer] Work Phone: [phone] Clinical Lists Update: Pre04-21-2017 Left ventricular Ejection fraction 60 % [employer] Work Phone: [phone] External Other: Preferred Me thod of [employer] 01-21-2017 GE use only - for Link[employer] import when terms are not otherwise specified secmsg Invalid Interpretation Code [employer] Work Phone: [phone] METHCONTACT secmsg [employer] Work Phone: [phone] Office Visit: [facility] 01-21-20 17 Documentation of current medications (procedure) Done Invalid Interpretation Code [employer] Work Phone: [phone] Fall risk assessment No Invalid Interpretation Code [employer] Work Phone: [phone] Protein mass conc Done [employer] Work Phone: [phone] Replaced Document: Amber Peraltaon 01-20-2017 EKG QRS axis -18 deg [employer] Work Phone: [phone] electrocardiogram interpretation Sinus Rhythm - Nonspecific T-abnormality. ABNORMAL Invalid Interpretation Code [employer] Work Phone: [phone] Interpretation Sinus Rhythm - Nonspecific T-abnormality. ABNORMAL [employer] Work Phone: [phone] P Salome 43 deg [employer] Work Phone: [phone] P wave axis, electrocardiogram 43 deg Invalid Interpretation Code [employer] Work Phone: RI Interval 148 ms [employer] Work Phone: [phone] RI interval, electrocardiogram 148 ms Invalid Interpretation Code [employer] Work Phone: [phone] Pulse (Heart Rate) 72 /min Invalid Interpretation Code [employer] Work Phone: [phone] QRS axis, electrocardiogram -18 deg Invalid Interpretation Code [employer] Work Phone: [phone] QRS Duration 106 ms [employer] Work Phone: [phone] QRS duration, electrocardiogram 106 ms Invalid Interpretation Code [employer] Work Phone: [phone] QT Interval new path ms [employer] [facility] [employer] Work Phone: [phone] QT interval, electrocardiogram new path ms Invalid Interpretation Code [employer] Work Phone: [phone] T Salome -1 deg [employer] [facility] [employer] Work Phone: [phone] T wave axis, electrocardiogram -1 deg Invalid Interpretation Code [employer] Work Phone: Clinical 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: Chart Maintenanceon 01-02-20 17 HbA1c 7.2 % Invalid Interpretation Code [facility] Work Phone: Vital Signs Date Time Vital Sign Value Performing Clinician Facility 04-24-2025 07:44-0400 Body mass index (BMI) [Ratio] 24.92 kg/m2 Francine Madrid INTERVENTIONAL PAIN PHYSICIAN.GYMNASIUM TEACHER Work Phone: [facility] 04-24-2025 07:44-0400 Body weight 63 kg Francine Madrid APRN.GYMNASIUM TEACHER Work Phone: [facility] 04-24-2025 07:44-0400 Diastolic blood pressure 76 mm[Hg] Francine Madrid INTERVENTIONAL PAIN PHYSICIAN.GYMNASIUM TEACHER Work Phone: [facility] 04-24-2025 07:44-0400 Heart rate 68 /min Francine Madrid INTERVENTIONAL PAIN PHYSICIAN.GYMNASIUM TEACHER Work Phone: [facility] 04-24-2025 07:44-0400 Systolic blood pressure 138 mm[Hg] Francine Madrid INTERVENTIONAL PAIN PHYSICIAN.ELIZABETH Work Phone: [facility] 04-19-2025 08:46-0400 Body height 159 cm Cherise Sifuentes PA-C Work Phone: [facility] 04-19-2025 08:46-0400 Body mass index (BMI) [Ratio] 25.66 kg/m2 Cherise Sifuentes PA-C Work Phone: [facility] 04-19-2025 08:46-0400 Body temperature 97.2 [degF] Cherise Sifuentes PA-C Work Phone: [facility] 04-19-2025 08:46-0400 Body weight 64.86 kg Cherise Sifuentes PA-C Work Phone: [facility] 04-19-2025 08:46-0400 Diastolic blood pressure 72 mm[Hg] Cherise MAYS-C Work Phone: [facility] 04-19-2025 08:46-0400 Heart rate 58 /min Cherise Sifuentes PA-C Work Phone: [facility] 04-19-2025 08:46-0400 Respiratory rate 16 /min Cherise Sifuentes PA-C Work Phone: [facility] 04-19-2025 08:46-0400 SaO2% (BldA) [Mass fraction] 98 % Cherise Sifuentes PA-C Work Phone: [facility] 04-19-2025 08:46-0400 Systolic blood pressure 136 mm[Hg] Cherise Sifuentes PA-C Work Phone: [facility] 04-09-2025 09:12-0400 Body height 159 cm Sima Dumont APRN.GYMNASIUM TEACHER Work Phone: [facility] 04-09-2025 09:12-0400 Body mass index (BMI) [Ratio] 25.66 kg/m2 Sima Dumont APRN.GYMNASIUM TEACHER Work Phone: [facility] 04-09-2025 09:12-0400 Body weight 64.86 kg Sima Dumont APRN.GYMNASIUM TEACHER Work Phone: [facility] 04-09-2025 09:12-0400 Diastolic blood pressure 90 mm[Hg] Sima Dumont APRN.GYMNASIUM TEACHER Work Phone: [facility] 04-09-2025 09:12-0400 Systolic blood pressure 156 mm[Hg] Sima Dumont APRN.GYMNASIUM TEACHER Work Phone: [facility] 03-21-2025 07:56-0400 Body mass index (BMI) [Ratio] 25.46 kg/m2 Chad Mariee APRN.GYMNASIUM TEACHER Work Phone: [facility] 03-21-2025 07:56-0400 Body temperature 97.59 [degF] Chad Mariee APRN.GYMNASIUM TEACHER Work Phone: [facility] 03-21-2025 07:56-0400 Body weight 65.2 kg Chad Russellenter INTERVENTIONAL PAIN PHYSICIAN.GYMNASIUM TEACHER Work Phone: [facility] 03-21-2025 07:56-0400 Diastolic blood pressure 88 mm[Hg] Chad Mariee INTERVENTIONAL PAIN PHYSICIAN.GYMNASIUM TEACHER Work Phone: [facility] 03-21-2025 07:56-0400 Heart rate 63 /min Chad Mariee INTERVENTIONAL PAIN PHYSICIAN.GYMNASIUM TEACHER Work Phone: [facility] 03-21-2025 07:56-0400 SaO2% (BldA) [Mass fraction] 97 % [place] Mariee INTERVENTIONAL PAIN PHYSICIAN.GYMNASIUM TEACHER Work Phone: [facility] 03-21-2025 07:56-0400 Systolic blood pressure 163 mm[Hg] Chad Mariee INTERVENTIONAL PAIN PHYSICIAN.GYMNASIUM TEACHER Work Phone: [facility] 03-16-2025 08:39-0400 Body height 160 cm Alexa Matute MD Work Phone: [facility] 03-16-2025 08:39-0400 Body mass index (BMI) [Ratio] 25.44 kg/m2 Alexa Matute MD Work Phone: [facility] 03-16-2025 08:39-0400 Body weight 65.14 kg Alexa Matute MD Work Phone: [facility] 03-16-2025 08:39-0400 Diastolic blood pressure 90 mm[Hg] Alexa Matute MD Work Phone: [facility] 03-16-2025 08:39-0400 Heart rate 57 /min Alexa Matute MD Work Phone: [facility] 03-16-2025 08:39-0400 Respiratory rate 17 /min Alexa Matute MD Work Phone: [facility] 03-16-2025 08:39-0400 SaO2% (BldA) [Mass fraction] 99 % Alexa Matute MD Work Phone: [facility] 03-16-2025 08:39-0400 Systolic blood pressure 160 mm[Hg] Alexa Matute MD Work Phone: [facility] 02-19-2025 08:44-0400 Diastolic blood pressure 80 mm[Hg] Ori Mbanugo DO Work Phone: [facility] 02-19-2025 08:44-0400 Systolic blood pressure 164 mm[Hg] Ori Mbanugo DO Work Phone: [facility] 02-19-2025 08:41-0400 Heart rate 65 /min Ori Mbanugo DO Work Phone: [facility] 02-19-2025 08:41-0400 SaO2% (BldA) [Mass fraction] 99 % Ori Mbanugo DO Work Phone: [facility] 02-16-2025 09:08-0400 Body mass index (BMI) [Ratio] 25.59 kg/m2 Alexa Matute MD Work Phone: [facility] 02-16-2025 09:08-0400 Body temperature 97.11 [degF] Alexa Matute MD Work Phone: [facility] 02-16-2025 09:08-0400 Body weight 65.32 kg Alexa Matute MD Work Phone: [facility] 02-16-2025 09:08-0400 Diastolic blood pressure 70 mm[Hg] Alexa Matute MD Work Phone: [facility] 02-16-2025 09:08-0400 Heart rate 67 /min Alexa Matute MD Work Phone: [facility] 02-16-2025 09:08-0400 SaO2% (BldA) [Mass fraction] 98 % Alexa Matute MD Work Phone: [facility] 02-16-2025 09:08-0400 Systolic blood pressure 140 mm[Hg] Alexa Matute MD Work Phone: [facility] 12-29-2024 13:33-0500 Body mass index (BMI) [Ratio] 23.99 kg/m2 Francine Madrid APRN.GYMNASIUM TEACHER Work Phone: [facility] 12-29-2024 13:33-0500 Body weight 61.24 kg Francine Madrid APRN.GYMNASIUM TEACHER Work Phone: [facility] 12-29-2024 13:33-0500 Diastolic blood pressure 81 mm[Hg] Francine Madrid APRN.GYMNASIUM TEACHER Work Phone: [facility] 12-29-2024 13:33-0500 Heart rate 67 /min Francine Madrid APRN.GYMNASIUM TEACHER Work Phone: [facility] 12-29-2024 13:33-0500 SaO2% (BldA) [Mass fraction] 98 % Francine Madrid APRN.GYMNASIUM TEACHER Work Phone: [facility] 12-29-2024 13:33-0500 Systolic blood pressure 171 mm[Hg] Francine Madrid APRN.GYMNASIUM TEACHER Work Phone: [facility] 11-03-2024 08:39-0500 Body height 159.8 cm Alexa Matute MD Work Phone: [facility] 11-03-2024 08:39-0500 Body mass index (BMI) [Ratio] 25.23 kg/m2 Alexa Matute MD Work Phone: [facility] 11-03-2024 08:39-0500 Body temperature 96.91 [degF] Alexa Matute MD Work Phone: [facility] 11-03-2024 08:39-0500 Body weight 64.41 kg Alexa Matute MD Work Phone: [facility] 11-03-2024 08:39-0500 Diastolic blood pressure 78 mm[Hg] Alexa Matute MD Work Phone: [facility] 11-03-2024 08:39-0500 Heart rate 60 /min Alexa Matute MD Work Phone: [facility] 11-03-2024 08:39-0500 SaO2% (BldA) [Mass fraction] 98 % Alexa Matute MD Work Phone: [facility] 11-03-2024 08:39-0500 Systolic blood pressure 138 mm[Hg] Alexa Matute MD Work Phone: [facility] 10-18-2024 09:37-0500 Diastolic blood pressure 82 mm[Hg] Cilfton Hung MD Work Phone: [facility] 10-18-2024 09:37-0500 Systolic blood pressure 132 mm[Hg] Clifton Hung MD Work Phone: [facility] 10-18-2024 09:19-0500 Body mass index (BMI) [Ratio] 24.88 kg/m2 Clifton Hung MD Work Phone: [facility] 10-18-2024 09:19-0500 Body temperature 97.59 [degF] Clifton Hung MD Work Phone: [facility] 10-18-2024 09:19-0500 Body weight 63.5 kg Clifton Hung MD Work Phone: [facility] 10-18-2024 09:19-0500 Heart rate 62 /min Clifton Hung MD Work Phone: [facility] 10-18-2024 09:19-0500 Respiratory rate 16 /min Clifton Hung MD Work Phone: [facility] 09-22-2024 09:08-0500 Body mass index (BMI) [Ratio] 24.77 kg/m2 Alexa Matute MD Work Phone: [facility] 09-22-2024 09:08-0500 Body weight 63.23 kg Alexa Matute MD Work Phone: [facility] 09-22-2024 09:08-0500 Diastolic blood pressure 68 mm[Hg] Alexa Matute MD Work Phone: [facility] 09-22-2024 09:08-0500 Heart rate 72 /min Alexa Matute MD Work Phone: [facility] 09-22-2024 09:08-0500 Respiratory rate 12 /min Alexa Matute MD Work Phone: [facility] 09-22-2024 09:08-0500 Systolic blood pressure 120 mm[Hg] Alexa Matute MD Work Phone: [facility] 09-14-2024 08:44-0500 Body mass index (BMI) [Ratio] 24.76 kg/m2 Chad Mariee INTERVENTIONAL PAIN PHYSICIAN.GYMNASIUM TEACHER Work Phone: [facility] 09-14-2024 08:44-0500 Body temperature 97.7 [degF] Chad Mariee INTERVENTIONAL PAIN PHYSICIAN.GYMNASIUM TEACHER Work Phone: [facility] 09-14-2024 08:44-0500 Body weight 63.2 kg Chad Mariee INTERVENTIONAL PAIN PHYSICIAN.GYMNASIUM TEACHER Work Phone: [facility] 09-14-2024 08:44-0500 Diastolic blood pressure 83 mm[Hg] Chad Mariee INTERVENTIONAL PAIN PHYSICIAN.GYMNASIUM TEACHER Work Phone: [facility] 09-14-2024 08:44-0500 Heart rate 72 /min Chad Mariee INTERVENTIONAL PAIN PHYSICIAN.GYMNASIUM TEACHER Work Phone: [facility] 09-14-2024 08:44-0500 SaO2% (BldA) [Mass fraction] 96 % Chad Mariee INTERVENTIONAL PAIN PHYSICIAN.GYMNASIUM TEACHER Work Phone: [facility] 09-14-2024 08:44-0500 Systolic blood pressure 155 mm[Hg] Chad Mariee INTERVENTIONAL PAIN PHYSICIAN.GYMNASIUM TEACHER Work Phone: [facility] 08-04-2024 10:20-0400 Diastolic blood pressure 80 mm[Hg] Ori Lord DO Work Phone: [facility] 08-04-2024 10:20-0400 Systolic blood pressure 145 mm[Hg] Ori Quanugo DO Work Phone: [facility] 08-04-2024 10:18-0400 Body mass index (BMI) [Ratio] 24.7 kg/m2 Ori Mbanugo DO Work Phone: [facility] 08-04-2024 10:18-0400 Body weight 63.05 kg Ori Quanugo DO Work Phone: [facility] 08-04-2024 10:180400 Heart rate 63 /min Ori Quanugo DO Work Phone: [facility] 08-04-2024 10:180400 SaO2% (BldA) [Mass fraction] 99 % Ori Quanugo DO Work Phone: [facility] 07-11-2024 13:14-0400 Body height 159.8 cm Alexa Matute MD Work Phone: [facility] 07-11-2024 13:14-0400 Body mass index (BMI) [Ratio] 24.74 kg/m2 Alexa Matute MD Work Phone: [facility] 07-11-2024 13:14-0400 Body temperature 97.39 [degF] Alexa Matute MD Work Phone: [facility] 07-11-2024 13:14-0400 Body weight 63.14 kg Alexa Matute MD Work Phone: [facility] 07-11-2024 13:14-0400 Diastolic blood pressure 70 mm[Hg] Alexa Matute MD Work Phone: [facility] 07-11-2024 13:14-0400 Heart rate 68 /min Alexa Matute MD Work Phone: [facility] 07-11-2024 13:14-0400 SaO2% (BldA) [Mass fraction] 98 % Alexa Matute MD Work Phone: [facility] 07-11-2024 13:14-0400 Systolic blood pressure 118 mm[Hg] Alexa Matute MD Work Phone: [facility] 07-04-2024 10:55-0400 Diastolic blood pressure 76 mm[Hg] Ori Mbanugo DO Work Phone: [facility] 07-04-2024 10:55-0400 Heart rate 70 /min Ori Mbanugo DO Work Phone: [facility] 07-04-2024 10:55-0400 SaO2% (BldA) [Mass fraction] 99 % Ori Mbanugo DO Work Phone: [facility] 07-04-2024 10:55-0400 Systolic blood pressure 121 mm[Hg] Ori Mbanugo DO Work Phone: [facility] 05-23-2024 11:54-0400 Diastolic blood pressure 85 mm[Hg] Ori Kostas Mbanugo DO Work Phone: [facility] 05-23-2024 11:54-0400 Heart rate 72 /min Ori Kostas Mbanugo DO Work Phone: [facility] 05-23-2024 11:54-0400 Systolic blood pressure 137 mm[Hg] Ori Kostas Mbanugo DO Work Phone: [facility] 05-01-2024 12:54-0400 Body mass index (BMI) [Ratio] 26.05 kg/m2 Julio Moomaw INTERVENTIONAL PAIN PHYSICIAN.GYMNASIUM TEACHER Work Phone: [facility] 05-01-2024 12:54-0400 Body temperature 97.5 [degF] Julio Moomaw INTERVENTIONAL PAIN PHYSICIAN.GYMNASIUM TEACHER Work Phone: [facility] 05-01-2024 12:54-0400 Body weight 66.7 kg Julio Moomaw INTERVENTIONAL PAIN PHYSICIAN.GYMNASIUM TEACHER Work Phone: [facility] 05-01-2024 12:54-0400 Diastolic blood pressure 78 mm[Hg] Julio Moomaw INTERVENTIONAL PAIN PHYSICIAN.GYMNASIUM TEACHER Work Phone: [facility] 05-01-2024 12:54-0400 Heart rate 70 /min Julio Moomaw INTERVENTIONAL PAIN PHYSICIAN.GYMNASIUM TEACHER Work Phone: [facility] 05-01-2024 12:54-0400 Respiratory rate 16 /min Julio Moomaw INTERVENTIONAL PAIN PHYSICIAN.GYMNASIUM TEACHER Work Phone: [facility] 05-01-2024 12:54-0400 SaO2% (BldA) [Mass fraction] 98 % Julio Moomaw INTERVENTIONAL PAIN PHYSICIAN.GYMNASIUM TEACHER Work Phone: [facility] 05-01-2024 12:54-0400 Systolic blood pressure 126 mm[Hg] Julio Moomaw INTERVENTIONAL PAIN PHYSICIAN.GYMNASIUM TEACHER Work Phone: [facility] 04-25-2024 08:48-0400 Diastolic blood pressure 73 mm[Hg] Ori Kostas Mbanugo DO Work Phone: [facility] 04-25-2024 08:48-0400 Systolic blood pressure 156 mm[Hg] Ori Kostas Mbanugo DO Work Phone: [facility] 04-25-2024 08:02-0400 Heart rate 60 /min Ori Kostas Mbanugo DO Work Phone: [facility] 04-25-2024 08:02-0400 SaO2% (BldA) [Mass fraction] 100 % Ori Kostas Mbanugo DO Work Phone: [facility] 04-17-2024 09:34-0400 Body mass index (BMI) [Ratio] 25.87 kg/m2 Francine Madrid INTERVENTIONAL PAIN PHYSICIAN.GYMNASIUM TEACHER Work Phone: [facility] 04-17-2024 09:34-0400 Body weight 66.22 kg Francine Madrid INTERVENTIONAL PAIN PHYSICIAN.GYMNASIUM TEACHER Work Phone: [facility] 04-17-2024 09:34-0400 Diastolic blood pressure 76 mm[Hg] Francine Madrid INTERVENTIONAL PAIN PHYSICIAN.GYMNASIUM TEACHER Work Phone: [facility] 04-17-2024 09:34-0400 Heart rate 58 /min Francine Madrid INTERVENTIONAL PAIN PHYSICIAN.GYMNASIUM TEACHER Work Phone: [facility] 04-17-2024 09:34-0400 Respiratory rate 14 /min Francine Madrid INTERVENTIONAL PAIN PHYSICIAN.GYMNASIUM TEACHER Work Phone: [facility] 04-17-2024 09:34-0400 Systolic blood pressure 135 mm[Hg] Francine Madrid INTERVENTIONAL PAIN PHYSICIAN.GYMNASIUM TEACHER Work Phone: [facility] 03-22-2024 17:20-0400 Body mass index (BMI) [Ratio] 25.87 kg/m2 Clifton Hung MD Work Phone: [facility] 03-22-2024 17:20-0400 Body temperature 98.29 [degF] Clifton Hung MD Work Phone: [facility] 03-22-2024 17:20-0400 Body weight 66.22 kg Clifton Hung MD Work Phone: [facility] 03-22-2024 17:20-0400 Diastolic blood pressure 68 mm[Hg] Clifton Hung MD Work Phone: [facility] 03-22-2024 17:20-0400 Heart rate 81 /min Clifton Hung MD Work Phone: [facility] 03-22-2024 17:20-0400 Respiratory rate 16 /min Clifton Hung MD Work Phone: [facility] 03-22-2024 17:20-0400 SaO2% (BldA) [Mass fraction] 98 % Clifton Hung MD Work Phone: [facility] 03-22-2024 17:20-0400 Systolic blood pressure 120 mm[Hg] Clifton Hung MD Work Phone: [facility] 03-14-2024 09:50-0400 Body mass index (BMI) [Ratio] 26.03 kg/m2 Chad Mariee INTERVENTIONAL PAIN PHYSICIAN.GYMNASIUM TEACHER Work Phone: [facility] 03-14-2024 09:50-0400 Body temperature 97.7 [degF] Chad Mariee INTERVENTIONAL PAIN PHYSICIAN.GYMNASIUM TEACHER Work Phone: [facility] 03-14-2024 09:50-0400 Body weight 66.63 kg Chad Mariee APRN.GYMNASIUM TEACHER Work Phone: [facility] 03-14-2024 09:50-0400 Diastolic blood pressure 85 mm[Hg] Chad Mariee INTERVENTIONAL PAIN PHYSICIAN.GYMNASIUM TEACHER Work Phone: [facility] 03-14-2024 09:50-0400 Heart rate 67 /min Chad Mariee INTERVENTIONAL PAIN PHYSICIAN.GYMNASIUM TEACHER Work Phone: [facility] 03-14-2024 09:50-0400 SaO2% (BldA) [Mass fraction] 100 % Chad Mariee INTERVENTIONAL PAIN PHYSICIAN.GYMNASIUM TEACHER Work Phone: [facility] 03-14-2024 09:50-0400 Systolic blood pressure 144 mm[Hg] Chad Mariee INTERVENTIONAL PAIN PHYSICIAN.GYMNASIUM TEACHER Work Phone: [facility] 01-18-2024 13:48-0400 Body weight 66.68 kg Sima Dumont APRN.GYMNASIUM TEACHER Work Phone: [facility] 01-18-2024 13:48-0400 Diastolic blood pressure 72 mm[Hg] Sima Dumont APRN.GYMNASIUM TEACHER Work Phone: [facility] 01-18-2024 13:48-0400 Systolic blood pressure 162 mm[Hg] Sima Dumont APRN.GYMNASIUM TEACHER Work Phone: [facility] 01-14-2024 08:34-0500 Diastolic blood pressure 78 mm[Hg] Francine Madrid INTERVENTIONAL PAIN PHYSICIAN.GYMNASIUM TEACHER Work Phone: [facility] 01-14-2024 08:34-0500 Systolic blood pressure 140 mm[Hg] Francine Madrid APRN.GYMNASIUM TEACHER Work Phone: [facility] 01-14-2024 08:23-0500 Body weight 65.77 kg Francine Madrid APRN.GYMNASIUM TEACHER Work Phone: [facility] 01-14-2024 08:23-0500 Heart rate 74 /min Francine Madrid INTERVENTIONAL PAIN PHYSICIAN.GYMNASIUM TEACHER Work Phone: [facility] 01-14-2024 08:23-0500 Respiratory rate 14 /min Francine Madrid INTERVENTIONAL PAIN PHYSICIAN.GYMNASIUM TEACHER Work Phone: [facility] 12-31-2023 13:43-0500 Body weight 64.86 kg Francine Madrid INTERVENTIONAL PAIN PHYSICIAN.GYMNASIUM TEACHER Work Phone: [facility] 12-31-2023 13:43-0500 Diastolic blood pressure 90 mm[Hg] Francine Madrid INTERVENTIONAL PAIN PHYSICIAN.GYMNASIUM TEACHER Work Phone: [facility] 12-31-2023 13:43-0500 Heart rate 77 /min Francine Madrid INTERVENTIONAL PAIN PHYSICIAN.GYMNASIUM TEACHER Work Phone: [facility] 12-31-2023 13:43-0500 Respiratory rate 16 /min Francine Madrid INTERVENTIONAL PAIN PHYSICIAN.GYMNASIUM TEACHER Work Phone: [facility] 12-31-2023 13:43-0500 Systolic blood pressure 170 mm[Hg] Francine Madrid INTERVENTIONAL PAIN PHYSICIAN.GYMNASIUM TEACHER Work Phone: [facility] 12-28-2023 02:53-0500 Body temperature 98 [degF] Dr. Clifton Hung Work Phone: [facility] 12-28-2023 02:53-0500 Diastolic blood pressure 65 mm[Hg] Dr. Clifton Hung Work Phone: [facility] 12-28-2023 02:53-0500 Heart rate 96 /min Dr. Clifton Hung Work Phone: [facility] 12-28-2023 02:53-0500 Respiratory rate 18 /min Dr. Clifton Hung Work Phone: [facility] 12-28-2023 02:53-0500 SaO2% (BldA) [Mass fraction] 96 % Dr. Clifton Hung Work Phone: [facility] 12-28-2023 02:53-0500 Systolic blood pressure 188 mm[Hg] Dr. Clifton Hung Work Phone: 6(410)460-632697 [place] [address] 12-28-2023 00:40-0500 Body height 160.[address] Clifton Hung Work Phone: 6(074)994-856897 [place] [address] 12-28-2023 00:40-0500 Body mass index (BMI) [Ratio] 25.6 kg/m2 Dr. Clifton Hung Work Phone: 2(729)588-968997 [place] [address] 12-28-2023 00:40-0500 Body weight 65.[address] Clifton Hung Work Phone: 7(605)369-848497 [place] [address] 12-22-2023 15:03-0500 Body temperature 99.3 [degF] Dr. Clifton Hung Work Phone: 5(830)564-142397 [place] [address] 12-22-2023 15:03-0500 Diastolic blood pressure 74 mm[Hg] Dr. Clifton Hung Work Phone: 0(023)393-852697 [place] [address] 12-22-2023 15:03-0500 Heart rate 88 /min Dr. Clifton Hung Work Phone: 8(187)945-902297 [place] [address] 12-22-2023 15:03-0500 Respiratory rate 16 /min Dr. Clifton Hung Work Phone: 7(531)747-066697 [place] [address] 12-22-2023 15:03-0500 SaO2% (BldA) [Mass fraction] 98 % Dr. Clifton Hung Work Phone: 3(260)796-451197 [place] [address] 12-22-2023 15:03-0500 Systolic blood pressure 103 mm[Hg] Dr. Clifton Hung Work Phone: 8(121)379-020397 [place] [address] 12-22-2023 13:22-0500 Body height 160.[address] Clifton Hung Work Phone: 6(366)157-044097 [place] [address] 12-22-2023 13:22-0500 Body mass index (BMI) [Ratio] 24.8 kg/m2 Dr. Clifton Hung Work Phone: 9(127)145-114897 [place] [address] 12-22-2023 13:22-0500 Body weight 63.[address] Clifton Hung Work Phone: [facility] 10-08-2023 08:59-0500 Body weight 64.86 kg Francine Madrid INTERVENTIONAL PAIN PHYSICIAN.GYMNASIUM TEACHER Work Phone: [facility] 10-08-2023 08:59-0500 Diastolic blood pressure 85 mm[Hg] Francine Madrid INTERVENTIONAL PAIN PHYSICIAN.GYMNASIUM TEACHER Work Phone: [facility] 10-08-2023 08:59-0500 Heart rate 62 /min Francine Madrid INTERVENTIONAL PAIN PHYSICIAN.GYMNASIUM TEACHER Work Phone: [facility] 10-08-2023 08:59-0500 Respiratory rate 14 /min Francine Madrid INTERVENTIONAL PAIN PHYSICIAN.GYMNASIUM TEACHER Work Phone: [facility] 10-08-2023 08:59-0500 Systolic blood pressure 166 mm[Hg] Francine Madrid INTERVENTIONAL PAIN PHYSICIAN.GYMNASIUM TEACHER Work Phone: 9(684)902-167842 [place] [address] 09-11-2023 14:30-0400 Body height 160.[address] Clifton Hung Work Phone: 1(787)219-459547 [place] [address] 09-11-2023 14:30-0400 Body mass index (BMI) [Ratio] 25.4 kg/m2 Dr. Clifton Hung Work Phone: 8(159)937-527047 [place] [address] 09-11-2023 14:30-0400 Body temperature 98.9 [degF] Dr. Clifton Hung Work Phone: 2(115)974-852347 [place] [address] 09-11-2023 14:30-0400 Body weight 65.[address] Clifton Hung Work Phone: 0(702)745-616547 [place] [address] 09-11-2023 14:30-0400 Diastolic blood pressure 94 mm[Hg] Dr. Clifton Hung Work Phone: 4(343)320-125347 [place] [address] 09-11-2023 14:30-0400 Heart rate 91 /min Dr. Clifton Hung Work Phone: 0(442)105-285147 [place] [address] 09-11-2023 14:30-0400 Respiratory rate 20 /min Dr. Clifton Hung Work Phone: 2(565)138-961547 [place] [address] 09-11-2023 14:30-0400 SaO2% (BldA) [Mass fraction] 96 % Dr. Clifton Hung Work Phone: [facility] 09-11-2023 14:30-0400 Systolic blood pressure 107 mm[Hg] Dr. Clifton Hung Work Phone: 7(726)062-066047 [place] [address] 08-30-2023 10:24-0400 Body mass index (BMI) [Ratio] 26 kg/m2 Dr. Clifton Hung Work Phone: [facility] 08-30-2023 10:24-0400 Body weight 66.[address] Clifton Hung Work Phone: 7(653)665-938547 [place] [address] 08-30-2023 10:24-0400 Diastolic blood pressure 89 mm[Hg] Dr. Clifton Hung Work Phone: 4(754)006-054347 [place] [address] 08-30-2023 10:24-0400 Heart rate 62 /min Dr. Clifton Hung Work Phone: 7(908)457-382947 [place] [address] 08-30-2023 10:24-0400 Respiratory rate 18 /min Dr. Clifton Hung Work Phone: 9(947)088-653147 [place] [address] 08-30-2023 10:24-0400 Systolic blood pressure 184 mm[Hg] Dr. Clifton Hung Work Phone: [facility] 07-23-2023 11:06-0400 Body weight 63.14 kg Sima Dumont APRN.GYMNASIUM TEACHER Work Phone: [facility] 07-23-2023 11:06-0400 Diastolic blood pressure 78 mm[Hg] Sima Dumont APRN.GYMNASIUM TEACHER Work Phone: [facility] 07-23-2023 11:06-0400 Systolic blood pressure 120 mm[Hg] Smia Dumont APRN.GYMNASIUM TEACHER Work Phone: [facility] 07-15-2023 14:54-0400 Diastolic blood pressure 64 mm[Hg] Dr. Clifton Hung Work Phone: [facility] 07-15-2023 14:54-0400 Respiratory rate 16 /min Dr. Clifton Hung Work Phone: [facility] 07-15-2023 14:54-0400 Systolic blood pressure 130 mm[Hg] Dr. Clifton Hung Work Phone: [facility] 07-15-2023 14:53-0400 Heart rate 64 /min Dr. Clifton Hung Work Phone: 0(710)492-649447 [place] [address] 04-20-2023 10:38-0400 Body height 160.[address] Clifton Hung Work Phone: 7(006)193-876247 [place] [address] 04-20-2023 10:38-0400 Body weight 61.[address] Clifton Hung Work Phone: 8(501)898-829147 [place] [address] 04-08-2023 13:05-0400 Body height 157.5 cm Clifton Hung MD Work Phone: [facility] 04-08-2023 13:05-0400 Body weight 60.33 kg Clifton Hung MD Work Phone: [facility] 04-08-2023 13:05-0400 Diastolic blood pressure 84 mm[Hg] Clifton Hung MD Work Phone: [facility] 04-08-2023 13:05-0400 Heart rate 70 /min Clifton Hung MD Work Phone: [facility] 04-08-2023 13:05-0400 Respiratory rate 16 /min Clifton Hung MD Work Phone: [facility] 04-08-2023 13:05-0400 Systolic blood pressure 128 mm[Hg] Clifton Hung MD Work Phone: [facility] 04-01-2023 13:53-0400 Body mass index (BMI) [Ratio] 23.9 kg/m2 Dr. Clifton Hung Work Phone: [facility] 04-01-2023 13:53-0400 Body weight 61.[address] Clifton Hung Work Phone: 9(732)824-407947 [place] [address] 04-01-2023 13:53-0400 Diastolic blood pressure 80 mm[Hg] Dr. Clifton Hung Work Phone: [facility] 04-01-2023 13:53-0400 Heart rate 55 /min Dr. Clifton Hung Work Phone: [facility] 04-01-2023 13:53-0400 SaO2% (BldA) [Mass fraction] 98 % Dr. Clifton Hung Work Phone: [facility] 04-01-2023 13:53-0400 Systolic blood pressure 139 mm[Hg] Dr. Clifton Hung Work Phone: [facility] 02-26-2023 09:52-0400 Body height 158 cm Chad Mariee INTERVENTIONAL PAIN PHYSICIAN.GYMNASIUM TEACHER Work Phone: [facility] 02-26-2023 09:52-0400 Body temperature 97.11 [degF] Chad Mariee INTERVENTIONAL PAIN PHYSICIAN.GYMNASIUM TEACHER Work Phone: [facility] 02-26-2023 09:52-0400 Body weight 61.69 kg Chad Mariee INTERVENTIONAL PAIN PHYSICIAN.GYMNASIUM TEACHER Work Phone: [facility] 02-26-2023 09:52-0400 Diastolic blood pressure 70 mm[Hg] Chad Mariee INTERVENTIONAL PAIN PHYSICIAN.GYMNASIUM TEACHER Work Phone: [facility] 02-26-2023 09:52-0400 Heart rate 82 /min Chad Mariee INTERVENTIONAL PAIN PHYSICIAN.GYMNASIUM TEACHER Work Phone: [facility] 02-26-2023 09:52-0400 SaO2% (BldA) [Mass fraction] 100 % Chad Mariee INTERVENTIONAL PAIN PHYSICIAN.GYMNASIUM TEACHER Work Phone: [facility] 02-26-2023 09:52-0400 Systolic blood pressure 132 mm[Hg] Chad Mariee INTERVENTIONAL PAIN PHYSICIAN.GYMNASIUM TEACHER Work Phone: [facility] 02-18-2023 11:10-0400 Body mass index (BMI) [Ratio] 24.3 kg/m2 Dr. Clifton Hung Work Phone: [facility] 02-18-2023 11:10-0400 Body weight 62.[address] Clifton Hung Work Phone: [facility] 02-18-2023 11:10-0400 Diastolic blood pressure 75 mm[Hg] Dr. Clifton Hung Work Phone: [facility] 02-18-2023 11:10-0400 Heart rate 66 /min Dr. Clifton Hung Work Phone: [facility] 02-18-2023 11:10-0400 Respiratory rate 16 /min Dr. Clifton Hung Work Phone: [facility] 02-18-2023 11:10-0400 Systolic blood pressure 121 mm[Hg] Dr. Clifton Hung Work Phone: [facility] 02-09-2023 12:08-0400 Body weight 63.[address] Clifton Hung Work Phone: [facility] 02-09-2023 07:43-0400 Body temperature 98.71 [degF] Cherise Sifuentes PA-C Work Phone: [facility] 02-09-2023 07:43-0400 Body weight 61.69 kg Cherise Sifuentes PA-C Work Phone: [facility] 02-09-2023 07:43-0400 Diastolic blood pressure 78 mm[Hg] Cherise Sifuentes PA-C Work Phone: [facility] 02-09-2023 07:43-0400 Heart rate 80 /min Cherise Sifuentes PA-C Work Phone: [facility] 02-09-2023 07:43-0400 Respiratory rate 18 /min Cherise Sifuentes PA-C Work Phone: [facility] 02-09-2023 07:43-0400 Systolic blood pressure 122 mm[Hg] Cherise Sifuentes PA-C Work Phone: [facility] 02-05-2023 09:19-0400 Body temperature 98.91 [degF] Lori Nithya INTERVENTIONAL PAIN PHYSICIAN.GYMNASIUM TEACHER Work Phone: [facility] 02-05-2023 09:19-0400 Body weight 63.23 kg Lori Nithya INTERVENTIONAL PAIN PHYSICIAN.GYMNASIUM TEACHER Work Phone: [facility] 02-05-2023 09:19-0400 Diastolic blood pressure 72 mm[Hg] Lori Nithya INTERVENTIONAL PAIN PHYSICIAN.GYMNASIUM TEACHER Work Phone: [facility] 02-05-2023 09:19-0400 Heart rate 92 /min Lori Nithya INTERVENTIONAL PAIN PHYSICIAN.GYMNASIUM TEACHER Work Phone: [facility] 02-05-2023 09:19-0400 Respiratory rate 18 /min Lori Nithya INTERVENTIONAL PAIN PHYSICIAN.GYMNASIUM TEACHER Work Phone: [facility] 02-05-2023 09:19-0400 SaO2% (BldA) [Mass fraction] 98 % Lorimary lou Matak INTERVENTIONAL PAIN PHYSICIAN.GYMNASIUM TEACHER Work Phone: [facility] 02-05-2023 09:19-0400 Systolic blood pressure 112 mm[Hg] Lori Nithya INTERVENTIONAL PAIN PHYSICIAN.GYMNASIUM TEACHER Work Phone: [facility] 01-07-2023 16:32-0500 Body height 160.[address] Clifton Hung Work Phone: [facility] 01-07-2023 16:32-0500 Body weight 65.[address] Clifton Hung Work Phone: [facility] 12-09-2022 07:04-0500 Body weight 66.68 kg Sima Dumont INTERVENTIONAL PAIN PHYSICIAN.GYMNASIUM TEACHER Work Phone: [facility] 12-09-2022 07:04-0500 Diastolic blood pressure 62 mm[Hg] Sima Dumont INTERVENTIONAL PAIN PHYSICIAN.GYMNASIUM TEACHER Work Phone: [facility] 12-09-2022 07:04-0500 Systolic blood pressure 110 mm[Hg] Sima Dumont INTERVENTIONAL PAIN PHYSICIAN.GYMNASIUM TEACHER Work Phone: [facility] 12-01-2022 14:30-0500 Body temperature 98 [degF] Dr. Clifton Hung Work Phone: 4(419)783-718297 [place] [address] 12-01-2022 14:30-0500 Diastolic blood pressure 69 mm[Hg] Dr. Clifton Hung Work Phone: 1(523)948-890897 [place] [address] 12-01-2022 14:30-0500 Heart rate 60 /min Dr. Clifton Hung Work Phone: 5(444)103-101497 [place] [address] 12-01-2022 14:30-0500 Respiratory rate 18 /min Dr. Clifton Hung Work Phone: 8(523)536-761697 [place] [address] 12-01-2022 14:30-0500 SaO2% (BldA) [Mass fraction] 99 % Dr. Clifton Hung Work Phone: 5(538)486-054797 [place] [address] 12-01-2022 14:30-0500 Systolic blood pressure 120 mm[Hg] Dr. Clifton Hung Work Phone: 4(423)651-763697 [place] [address] 12-01-2022 12:07-0500 Body height 160.[address] Clifton Hung Work Phone: 7(499)304-549097 [place] [address] 12-01-2022 12:07-0500 Body mass index (BMI) [Ratio] 25.8 kg/m2 Dr. Clifton Hung Work Phone: 7(295)991-527497 [place] [address] 12-01-2022 12:07-0500 Body weight 66.[address] Clifton Hung Work Phone: 8(706)511-254297 [place] [address] 11-19-2022 11:15-0500 Body height 160.[address] Clifton Hung Work Phone: 4(035)637-151597 [place] [address] 11-19-2022 11:15-0500 Body mass index (BMI) [Ratio] 26.4 kg/m2 Dr. Clifton Hung Work Phone: 5(576)703-612097 [place] [address] 11-19-2022 11:15-0500 Body weight 67.[address] Clifton Hung Work Phone: 0(822)232-951597 [place] [address] 11-19-2022 11:15-0500 Diastolic blood pressure 77 mm[Hg] Dr. Clifton Hung Work Phone: [facility] 11-19-2022 11:15-0500 Heart rate 71 /min Dr. Clifton Hung Work Phone: [facility] 11-19-2022 11:15-0500 SaO2% (BldA) [Mass fraction] 97 % Dr. Clifton Hung Work Phone: [facility] 11-19-2022 11:15-0500 Systolic blood pressure 144 mm[Hg] Dr. Clifton Hung Work Phone: [facility] 11-14-2022 13:11-0500 Body temperature 98.71 [degF] Shaneka Yang APRN.GYMNASIUM TEACHER Work Phone: [facility] 11-14-2022 13:11-0500 Body weight 68.49 kg Shaneka Yang APRN.GYMNASIUM TEACHER Work Phone: [facility] 11-14-2022 13:11-0500 Diastolic blood pressure 82 mm[Hg] Shaneka Yang APRN.GYMNASIUM TEACHER Work Phone: [facility] 11-14-2022 13:11-0500 Heart rate 77 /min Shaneka Yang APRN.GYMNASIUM TEACHER Work Phone: [facility] 11-14-2022 13:11-0500 Respiratory rate 16 /min Shaneka Yang APRN.GYMNASIUM TEACHER Work Phone: [facility] 11-14-2022 13:11-0500 SaO2% (BldA) [Mass fraction] 98 % Shaneka Yang APRN.GYMNASIUM TEACHER Work Phone: [facility] 11-14-2022 13:11-0500 Systolic blood pressure 138 mm[Hg] Shaneka Yang APRN.GYMNASIUM TEACHER Work Phone: [facility] 11-02-2022 13:16-0500 Body temperature 100.6 [degF] Shaneka Yang APRN.GYMNASIUM TEACHER Work Phone: [facility] 11-02-2022 13:16-0500 Body weight 67.59 kg Shaneka Yang APRN.GYMNASIUM TEACHER Work Phone: [facility] 11-02-2022 13:16-0500 Diastolic blood pressure 84 mm[Hg] Shaneka Yang APRN.GYMNASIUM TEACHER Work Phone: [facility] 11-02-2022 13:16-0500 Heart rate 92 /min Shaneka Yang APRN.GYMNASIUM TEACHER Work Phone: [facility] 11-02-2022 13:16-0500 Respiratory rate 18 /min Shaneka Yang APRN.GYMNASIUM TEACHER Work Phone: [facility] 11-02-2022 13:16-0500 SaO2% (BldA) [Mass fraction] 96 % Shaneka Yang APRN.GYMNASIUM TEACHER Work Phone: [facility] 11-02-2022 13:16-0500 Systolic blood pressure 132 mm[Hg] Shaneka Yang APRN.GYMNASIUM TEACHER Work Phone: [facility] 10-05-2022 10:25-0500 Body temperature 97.11 [degF] Cherise Sifuentes PA-C Work Phone: [facility] 10-05-2022 10:25-0500 Body weight 67.13 kg Cherise Sifuentes PA-C Work Phone: [facility] 10-05-2022 10:25-0500 Diastolic blood pressure 80 mm[Hg] Cherise Sifuentes PA-C Work Phone: [facility] 10-05-2022 10:25-0500 Heart rate 72 /min Cherise Sifuentes PA-C Work Phone: [facility] 10-05-2022 10:25-0500 Respiratory rate 16 /min Cherise Sifuentes PA-C Work Phone: [facility] 10-05-2022 10:25-0500 Systolic blood pressure 110 mm[Hg] Cherise Sifuentes PA-C Work Phone: [facility] 09-03-2022 14:42-0400 Body weight 67.59 kg Clifton Hung MD Work Phone: [facility] 09-03-2022 14:42-0400 Diastolic blood pressure 76 mm[Hg] Clifton Hung MD Work Phone: [facility] 09-03-2022 14:42-0400 Heart rate 84 /min Clifton Hung MD Work Phone: [facility] 09-03-2022 14:42-0400 SaO2% (BldA) [Mass fraction] 96 % Clifton Hung MD Work Phone: [facility] 09-03-2022 14:42-0400 Systolic blood pressure 120 mm[Hg] Clifton Hung MD Work Phone: [facility] 09-03-2022 10:35-0400 Body mass index (BMI) [Ratio] 26.5 kg/m2 Dr. Clifton Hung Work Phone: [facility] 09-03-2022 10:35-0400 Body weight 68.[address] Clifton Hung Work Phone: [facility] 09-03-2022 10:35-0400 Diastolic blood pressure 69 mm[Hg] Dr. Clifton Hung Work Phone: 8(276)791-411447 [place] [address] 09-03-2022 10:35-0400 Heart rate 77 /min Dr. Clifton Hung Work Phone: [facility] 09-03-2022 10:35-0400 Respiratory rate 16 /min Dr. Clifton Hung Work Phone: [facility] 09-03-2022 10:35-0400 Systolic blood pressure 102 mm[Hg] Dr. Clifton Hung Work Phone: [facility] 08-28-2022 10:22-0400 Body weight 66.68 kg Sima Dumont APRN.GYMNASIUM TEACHER Work Phone: [facility] 08-28-2022 10:22-0400 Diastolic blood pressure 70 mm[Hg] Sima Dumont APRN.GYMNASIUM TEACHER Work Phone: [facility] 08-28-2022 10:22-0400 Systolic blood pressure 98 mm[Hg] Sima Dumont APRN.GYMNASIUM TEACHER Work Phone: [facility] 08-28-2022 08:23-0400 Body height 161 cm Chad Russellenter INTERVENTIONAL PAIN PHYSICIAN.GYMNASIUM TEACHER Work Phone: [facility] 08-28-2022 08:23-0400 Body temperature 96.8 [degF] Chad Russellenter INTERVENTIONAL PAIN PHYSICIAN.GYMNASIUM TEACHER Work Phone: [facility] 08-28-2022 08:23-0400 Body weight 67.13 kg Chad Russellenter INTERVENTIONAL PAIN PHYSICIAN.GYMNASIUM TEACHER Work Phone: [facility] 08-28-2022 08:23-0400 Diastolic blood pressure 76 mm[Hg] [place] Mariee INTERVENTIONAL PAIN PHYSICIAN.GYMNASIUM TEACHER Work Phone: [facility] 08-28-2022 08:23-0400 Heart rate 92 /min Chadnathaniel Mariee INTERVENTIONAL PAIN PHYSICIAN.GYMNASIUM TEACHER Work Phone: [facility] 08-28-2022 08:23-0400 Systolic blood pressure 115 mm[Hg] [place] Mariee INTERVENTIONAL PAIN PHYSICIAN.GYMNASIUM TEACHER Work Phone: [facility] 07-09-2022 07:50-0400 Body weight 68.04 kg Sima Dumont INTERVENTIONAL PAIN PHYSICIAN.GYMNASIUM TEACHER Work Phone: [facility] 07-09-2022 07:50-0400 Diastolic blood pressure 68 mm[Hg] Sima Dumont INTERVENTIONAL PAIN PHYSICIAN.GYMNASIUM TEACHER Work Phone: [facility] 07-09-2022 07:50-0400 Systolic blood pressure 118 mm[Hg] Sima Dumont APRN.GYMNASIUM TEACHER Work Phone: [facility] 06-30-2022 12:34-0400 Body temperature 97.39 [degF] Martha Athy PA-C Work Phone: [facility] 06-30-2022 12:34-0400 Body weight 68.13 kg Martha Athy PA-C Work Phone: [facility] 06-30-2022 12:34-0400 Diastolic blood pressure 78 mm[Hg] Martha Athy PA-C Work Phone: [facility] 06-30-2022 12:34-0400 Heart rate 90 /min Martha Athy PA-C Work Phone: [facility] 06-30-2022 12:34-0400 Respiratory rate 18 /min Martha Athy PA-C Work Phone: [facility] 06-30-2022 12:34-0400 SaO2% (BldA) [Mass fraction] 99 % Martha Athy PA-C Work Phone: [facility] 06-30-2022 12:34-0400 Systolic blood pressure 124 mm[Hg] Martha Athy PA-C Work Phone: [facility] 05-28-2022 14:03-0400 Body height 160.[address] Clifton Hung Work Phone: [facility] Work Phone: 02-25-2022 09:57-0400 Body temperature 97.39 [degF] [place] Mareie INTERVENTIONAL PAIN PHYSICIAN.GYMNASIUM TEACHER Work Phone: [facility] 02-25-2022 09:57-0400 Body weight 71.22 kg Chad Mariee INTERVENTIONAL PAIN PHYSICIAN.GYMNASIUM TEACHER Work Phone: [facility] 02-25-2022 09:57-0400 Diastolic blood pressure 70 mm[Hg] [place] Mariee INTERVENTIONAL PAIN PHYSICIAN.GYMNASIUM TEACHER Work Phone: [facility] 02-25-2022 09:57-0400 Heart rate 74 /min [place] Mariee INTERVENTIONAL PAIN PHYSICIAN.GYMNASIUM TEACHER Work Phone: [facility] 02-25-2022 09:57-0400 Systolic blood pressure 114 mm[Hg] [place] Mariee INTERVENTIONAL PAIN PHYSICIAN.GYMNASIUM TEACHER Work Phone: [facility] 07-22-2017 16:09-0400 Heart rate 60 /min [...] 09:44-0400 BP Diastolic 68 mm[Hg] Manda Cisco [facility] Work Phone: 04-23-2017 09:44-0400 BP Systolic 118 mm[Hg] Manda Cinday [facility] Work Phone: 04-23-2017 09:44-0400 Height 160.02 cm Manda Cinday [facility] Work Phone: 04-23-2017 09:44-0400 Pulse (Heart Rate) 72 /min Manda Marthey [facility] Work Phone: 04-23-2017 09:44-0400 Respiratory Rate 16 /min Manda Kaushalhey [facility] Work Phone: 04-23-2017 09:44-0400 Weight 72.12 kg Manda Marthey [facility] Work Phone: 01-20-2017 11:03-0400 Heart [...] 05-17-2025 ambulatory Clifton Hung MD Work Phone: [facility] Comment on above: Allied Health Visit (Medication Adherence Outreach ) Start: 05-14-2025 End: 05-14-2025 ambulatory Clifton Hung MD Work Phone: [facility] Comment on above: Allied Health Visit (Medication Adherence Outreach/) Start: 04-26-2025 End: 04-26-2025 Follow-up encounter Francine Madrid APRN.CNP Work Phone: [facility] [place] Start: 04-24-2025 End: 04-24-2025 Patient encounter procedure Francine Madrid APRN.CNP Work Phone: [facility] Comment on above: Urinary frequency (P rimary Dx); Urinary tract infection with hematuria, site unspecified Start: 04-24-2025 End: 04-24-2025 ambulatory CLIFTON HUNG Facility:[facility] Start: 04-23-2025 End: 04-23-2025 ambulatory iSma Dumont APRN.CNP Work Phone: OB/Gynecology Comment on above: UTI Start: 04-19-2025 End: 04-19-2025 Patient encounter procedure Cherise Sifuentes PA-C Work Phone: [facility] Comment on above: Encounter for Medica re annual wellness exam (Primary Dx); Advance directive discussed with patient; Controlled type 2 diabetes mellitus without complication, without long-term current use of insulin (HCC); Type 2 diabetes mellitus with hyperlipidemia (HCC); Essential hypertension; Mixed hyperlipidemia; Statin intolerance; Drug-induced myopathy; 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); RLS (restless legs syndrome); 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; Pancreatic insufficiency (HCC); Vitamin D deficiency; Hypomagnesemia; History of hyperparathyroidism; Living will on file at physician's office; Encounter for screening examination for other mental health and behavioral disorders; Screening for depression Start: 04-19-2025 End: 04-19-2025 ambulatory CLIFTON HUNG Facility:[facility] Start: 04-12-2025 End: 04-12-2025 ambulatory Clifton Hung MD Work Phone: [facility] [place] Start: 04-12-2025 End: 04-12-2025 Patient encounter procedure Clifton Hung MD Work Phone: [facility] Comment on above: Population Health Na vigation Outreach ([employer] [place] ) Start: 04-09-2025 End: 04-09-2025 Patient encounter procedure Sima Dumont APRN.GYMNASIUM TEACHER Work Phone: OB/Gynecology Comment on above: Encounter for gyneco logic examination for high-risk patient covered by Medicare (Primary Dx); Genitourinary syndrome of menopause; KLAUS (stress urinary incontinence, female); Long-term current use of tamoxifen; History of left breast cancer; Encounter for screening for osteoporosis; Asymptomatic postmenopausal status Start: 04-09-2025 End: 04-09-2025 ambulatory SIMA DUMONT Facility:[facility] Start: 04-06-2025 End: 04-06-2025 ambulatory CLIFTON HUNG Facility:[facility] Start: 04-04-2025 End: 04-04-2025 ambulatory Rocco Rendon RN Work Phone: [employer] Chief [employer] Comment on above: Pharyngitis Start: 03-21-2025 End: 03-21-2025 Patient encounter procedure Chad Mariee APRN.GYMNASIUM TEACHER Work Phone: Hematology/Oncology Start: 03-21-2025 End: 03-21-2025 ambulatory Chad Mariee APRN.GYMNASIUM TEACHER Work Phone: Hematology/Oncology Comment on above: Ductal carcinoma in situ (DCIS) of left breast (Primary Dx); Encounter for screening mammogram for high-risk patient Start: 03-16-2025 End: 03-16-2025 Patient encounter procedure Alexa Matute MD Work Phone: Endocrinology Comment on above: Cold intolerance (Pr imary Dx); Disorder of adrenal gland (HCC) Start: 03-16-2025 End: 03-16-2025 ambulatory CLIFTON HUNG Facility:[facility] Start: 03-14-2025 ambulatory CLIFTON HUNG Facili ty:[facility] Start: 03-14-2025 End: 03-14-2025 Subsequent hospital visit by physician Screen Mammo [facility] Mammogram Comment on above: 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] Start: 03-13-2025 End: 03-13-2025 ambulatory Clifton Hung MD Work Phone: [facility] [place] Start: 03-13-2025 End: 03-13-2025 Patient encounter procedure Clifton Hung MD Work Phone: [facility] [place] Comment on above: Population Health Na vigation Outreach ([employer] [facility] [place] ) Start: 02-25-2025 End: 04-27-2025 Follow-up encounter Alexa Matute MD Work Phone: Endocrinology Start: 02-21-2025 End: 02-21-2025 ambulatory CLIFTON HUNG Facility:[facility] Start: 02-19-2025 End: 02-19-2025 Office outpatient visit 25 minutes Ori Lord DO Work Phone: [facility] Comment on above: Urinary incontinence , mixed (Primary Dx); Microscopic hematuria; Genitourinary syndrome of menopause; History of UTI; Adenoma of right adrenal gland; Renal cyst Start: 02-19-2025 End: 02-19-2025 ambulatory ORI LORD Facility:[id number] Start: 02-16-2025 End: 02-16-2025 ambulatory ALEXA MATUTE Facility:[facility] Start: 02-16-2025 End: 02-16-2025 Patient encounter procedure Alexa Matute MD Work Phone: Endocrinology Comment on above: Adenoma of right adr enal gland (Primary Dx); Disorder of adrenal gland (HCC) Start: 01-30-2025 End: 01-30-2025 ambulatory Valarie Russell [facility] Work Phone: [facility] Start: 01-30-2025 End: 01-30-2025 Patient encounter procedure Valarie Russell [facility] Work Phone: [facility] Comment on above: Allied Health Visit Start: 01-23-2025 End: 03-25-2025 Follow-up encounter Mandy Hillman RN Endocrinology Start: 01-01-2025 End: 01-01-2025 Follow-up encounter Francine Madrid APRN.GYMNASIUM TEACHER Work Phone: [facility] [place] Comment on above: COVID-19 (Primary Dx ) Start: 12-31-2024 End: 01-02-2025 Refill Chad Mariee APRN.GYMNASIUM TEACHER Work Phone: Hematology/Oncology Comment on above: Refill Request Start: 12-29-2024 End: 12-29-2024 Patient encounter procedure Francine Madrid APRN.GYMNASIUM TEACHER Work Phone: [facility] [place] Comment on above: Acute cough (Primary Dx); Essential hypertension Start: 12-29-2024 End: 12-29-2024 ambulatory FRANCINE MADRID Facility:[facility] Start: 12-14-2024 End: 12-14-2024 Refill Clifton Hung MD Work Phone: [facility] [place] Comment on above: Refill Request Start: 11-07-2024 End: 11-07-2024 ambulatory [facility] Facility:[facility] Start: 11-03-2024 End: 11-03-2024 ambulatory [facility] Facility:[facility] Start: 11-03-2024 End: 11-03-2024 Patient encounter procedure Alexa Matute MD Work Phone: Endocrinology Comment on above: Adenoma of right adr enal gland (Primary Dx) Start: 10-23-2024 End: 10-23-2024 ambulatory Clifton Hung [place] Start: 10-18-2024 End: 10-18-2024 ambulatory CLIFTON HUNG Facility:[facility] Start: 10-18-2024 End: 10-18-2024 Ophthalmic examination and evaluation Clifton Hung MD Work Phone: [facility] Start: 10-18-2024 End: 10-18-2024 Patient encounter procedure Clifton Hung MD Work Phone: [facility] [place] Comment on above: Type 2 diabetes micaela itus with hyperlipidemia (HCC) (HCC) (Primary Dx); Controlled type 2 diabetes mellitus without complication, without long-term current use of insulin (HCC); Diabetic eye exam (HCC); Essential hypertension; Mixed hyperlipidemia; 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); Ductal carcinoma in situ (DCIS) of left breast; Narcolepsy without cataplexy; Vitamin D deficiency; Right lateral epicondylitis; Medication management; Gastroesophageal reflux disease without esophagitis Start: 10-14-2024 End: 10-14-2024 ambulatory CLIFTON HUNG Facility:[facility] Start: 10-13-2024 End: 10-13-2024 Telephone encounter Clifton Hung MD Work Phone: [facility] [place] Comment on above: Lab Orders Start: 10-03-2024 End: 10-03-2024 ambulatory CLIFTON HUNG Facility:[facility] Start: 10-02-2024 End: 10-02-2024 Chart abstracting Shakeel Yang MA [facility] [place] Comment on above: Consult (Outside Oph thalmology /) Start: 10-02-2024 End: 10-02-2024 ambulatory ALEXA MATUTE Facility:[facility] Start: 09-26-2024 End: 09-26-2024 ambulatory Clifton Hung MD Work Phone: [facility] [place] Comment on above: ER visit Start: 09-22-2024 End: 09-22-2024 ambulatory ALEXA HURST SEARSELIS Facility:[facility] Start: 09-22-2024 End: 09-22-2024 Patient encounter procedure Alexa Matute MD Work Phone: Endocrinology Comment on above: Adenoma of right adr enal gland (Primary Dx) Start: 09-14-2024 End: 09-14-2024 ambulatory Chad Mariee APRN.GYMNASIUM TEACHER Work Phone: Hematology/Oncology Comment on above: Ductal carcinoma in situ (DCIS) of left breast (Primary Dx); Encounter for screening mammogram for high-risk patient Start: 09-14-2024 End: 09-14-2024 Patient encounter procedure Chad Mariee APRN.GYMNASIUM TEACHER Work Phone: Hematology/Oncology Start: 08-15-2024 End: 08-15-2024 ambulatory ALEXA MATUTE Facility:[facility] Start: 08-15-2024 End: 08-15-2024 Subsequent hospital visit by physician Jasmyne [facility] (I-Stat) Work Phone: Cat Scan Comment on above: Adenoma of right adr enal gland [D35.01] Start: 08-08-2024 End: 08-08-2024 ambulatory [facility] Facility:[facility] Start: 08-04-2024 End: 08-04-2024 Office outpatient visit 15 minutes Ori Mbanugo DO Work Phone: [employer] Comment on above: Urinary incontinence , mixed (Primary Dx); Microscopic hematuria; Genitourinary syndrome of menopause; History of UTI; Adenoma of right adrenal gland Start: 08-04-2024 End: 08-04-2024 ambulatory ORI MBANUGO Facility:[id number] Start: 08-02-2024 End: 08-02-2024 Refill Cherise Sifuentes PA-C Work Phone: [facility] Comment on above: Refill Request Start: 07-17-2024 End: 07-17-2024 Refill Francine Madrid APRN.CNP Work Phone: [facility] [place] Comment on above: Refill Request Start: 07-11-2024 End: 07-11-2024 [facility] Start: 07-11-2024 End: 07-11-2024 Patient encounter procedure Alexa Matute MD Work Phone: Endocrinology Comment on above: Adenoma of right adr enal gland (Primary Dx); Disorder of adrenal gland (HCC) Start: 07-05-2024 End: 07-11-2024 ambulatory Clifton Hung MD Work Phone: [facility] [place] Comment on above: update Start: 07-04-2024 End: 07-04-2024 Office outpatient visit 25 minutes Ori Mbanugo DO Work Phone: [employer] Comment on above: Urinary incontinence , mixed (Primary Dx); Microscopic hematuria; Adenoma of right adrenal gland; Renal cyst Start: 07-04-2024 End: 07-04-2024 ambulatory ORI LORD Facility:[id number] Start: 06-26-2024 End: 06-26-2024 Chart abstracting Clifton Hung MD Work Phone: [facility] Comment on above: Outside Imaging Start: 06-23-2024 End: 06-23-2024 [facility] Facility:[facility] Start: 06-19-2024 Chart abstracting Shakeel Valladares [facility] [place] Comment on above: Results (Outside res ults /) Start: 06-19-2024 [facility] [place] Start: 06-19-2024 End: 06-19-2024 [facility] Facility:[facility] Start: 06-15-2024 Chart abstracting Clifton romero MD Work Phone: [facility] Comment on above: Outside Hovd-Ahn-DTG Ordered Start: 06-14-2024 Chart abstracting Clifton romero MD Work Phone: [facility] Comment on above: Outside Skdd-Dan-AVN Ordered Start: 06-09-2024 Chart abstracting Shakeel Valladares [facility] [place] Comment on above: Results (Outside lab results /) Start: 06-06-2024 Chart abstracting Clifton romero MD Work Phone: [facility] Comment on above: Outside Jyhi-Jlq-LKP Ordered Start: 06-05-2024 End: 06-06-2024 [facility] Facility:[facility] Start: 06-05-2024 End: 06-05-2024 [facility] Facility:[facility] Start: 05-23-2024 Telephone encounter Ori Lord DO Work Phone: [employer] Comment on above: Consult Start: 05-23-2024 End: 05-23-2024 Office outpatient visit 15 minutes Ori Lord DO Work Phone: [employer] Comment on above: Urinary incontinence , mixed (Primary Dx); Genitourinary syndrome of menopause; Microscopic hematuria; Adenoma of right adrenal gland Start: 05-23-2024 End: 05-23-2024 ambulatory ORI LORD Facility:[id number] Start: 05-01-2024 End: 05-01-2024 Patient encounter procedure Julio Tavarez APRN.GYMNASIUM TEACHER Work Phone: [facility] Comment on above: Burn, foot, second d egree, left, initial encounter (Primary Dx) Start: 04-25-2024 Chart abstracting Shakeel Yang MA [facility] [place] Comment on above: Consult (Cardiology /) Start: 04-25-2024 End: 04-25-2024 Patient encounter procedure Ori Lord DO Work Phone: [facility] Comment on above: Lower urinary tract symptoms (LUTS) (Primary Dx); Urinary incontinence, mixed; Microscopic hematuria; History of UTI; Abnormal findings on diagnostic imaging of urinary organs Start: 04-25-2024 End: 04-25-2024 [facility][1] ORI LORD Facility:[id number] Start: 04-21-2024 End: 04-21-2024 ambulatory [facility] [place] Start: 04-20-2024 Telephone encounter Francine cuellar APRN.GYMNASIUM TEACHER Work Phone: [facility] Comment on above: Results Start: 04-20-2024 [facility] [place] :[facility] Start: 04-18-2024 Telephone encounter Francine cuellar APRN.GYMNASIUM TEACHER Work Phone: [facility] Comment on above: Patient Update Start: 04-17-2024 End: 04-17-2024 Patient encounter procedure Francine Madrid APRN.GYMNASIUM TEACHER Work Phone: [facility] Comment on above: Essential hypertensi on [...] type 2 diabetes mellitus (HCC); 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) Start: 03-23-2024 ambulatory Clifton allen MD Work Phone: [facility] [place] Comment on above: test results Start: 03-23-2024 Telephone encounter Clifton Hung MD Work Phone: [facility] [place] Comment on above: Medication Problem Start: 03-22-2024 End: 03-22-2024 Patient encounter procedure Clifton Hung MD Work Phone: [facility] [place] Comment on above: Pharyngitis, unspeci fied etiology [...] Start: 03-09-2024 Documentation procedure Mammog chidi Coordinator [facility] Department Start: 03-09-2024 Letter encounter Mammography Coordinator [facility] Start: 03-09-2024 End: 03-09-2024 Subsequent hospital visit by physician Screen Mammo [facility] Mammogram Comment on above: 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] Start: 02-29-2024 Refill Clifton allen MD Work Phone: [facility] [place] Comment on above: Refill Request Start: 02-14-2024 Refill Clifton allen MD Work Phone: [facility] [place] Comment on above: Refill Request Start: 01-26-2024 Refill Francine resendiz APRN.GYMNASIUM TEACHER Work Phone: [facility] Comment on above: Refill Request Start: 01-21-2024 ambulatory Clifton allen MD Work Phone: [facility] Comment on above: Lisinopril and tests results Start: 01-18-2024 ambulatory Clifton allen MD Work Phone: [facility] Comment on above: Lab Start: 01-18-2024 End: 01-18-2024 Patient encounter procedure Sima Dumont APRN.GYMNASIUM TEACHER Work Phone: OB/Gynecology Comment on above: Dysuria (Primary Dx) ; Urinary frequency; Vaginal discharge; Genitourinary syndrome of menopause Start: 01-17-2024 Telephone encounter Clifton Hung MD Work Phone: [facility] Comment on above: High Blood Sugar; Or ders Start: 01-14-2024 End: 01-14-2024 Patient encounter procedure Francine Madrid APRN.GYMNASIUM TEACHER Work Phone: [facility] Comment on above: Essential hypertensi on (Primary Dx) Start: 01-10-2024 Chart abstracting Clifton romero MD Work Phone: [facility] Comment on above: Outside Diabetic Eye Exam Start: 01-10-2024 Ophthalmic examinati on and evaluation Clifton Hung MD Work Phone: [facility] Start: 01-03-2024 End: 01-03-[address] Clifton Hung Work Phone: [facility] Work Phone: Start: 01-03-2024 End: 01-03-[address] Clifton Hung Work Phone: [facility] Work Phone: Start: 01-03-2024 End: 01-03-2024 ambulatory Carson Alcantar Facility:[facility] Start: 12-31-2023 End: 12-31-2023 Patient encounter procedure Francine Madrid APRN.GYMNASIUM TEACHER Work Phone: [facility] Comment on above: Vaginal yeast infect ion (Primary Dx); Essential hypertension Start: 12-28-2023 Chart abstracting Clifton romero MD Work Phone: [facility] Comment on above: ER Discharge Summary Start: 12-28-2023 End: 12-28-2023 Emergency department patient visit Dr. Clifton Hung Work Phone: [facility] Work Phone: Start: 12-24-2023 ambulatory Clifton allen MD Work Phone: [facility] Comment on above: Influenza A Start: 12-22-2023 End: 12-22-2023 Emergency department patient visit Dr. Clifton Hung Work Phone: [facility] Work Phone: Start: 12-10-2023 Chart abstracting Clifton romero MD Work Phone: [facility] Comment on above: Outside [facility] Ordered Start: 12-08-2023 End: 12-08-[address] Clifton Hung Work Phone: [facility] Work Phone: Start: 12-08-2023 End: 12-08-[address] Clifton Hung Work Phone: [facility]Laboratory Work Phone: Start: 12-08-2023 End: 12-08-2023 ambulatory [facility] Facility:[facility] Start: 12-06-2023 End: 12-06-[address] Clifton Hung Work Phone: [facility] Gastroenterology Work Phone: Start: 12-06-2023 End: 12-06-2023 ambulatory [facility] [place] Start: 10-08-2023 End: 10-08-2023 Patient encounter procedure Francine Madrid APRN.CNP Work Phone: [facility] Comment on above: Essential hypertensi on (Primary Dx); Controlled type 2 diabetes mellitus without complication, without long-term current use of insulin (HCC); Mixed hyperlipidemia; Narcolepsy without cataplexy; Ductal carcinoma in situ (DCIS) of left breast; RLS (restless legs syndrome); Obstructive sleep apnea on CPAP Start: 10-06-2023 Non-patient / Non-visit Dr. Gabino Hung Work Phone: [facility] Work Phone: Start: 10-03-2023 Non-patient / Non-visit Dr. Gabino Hung Work Phone: [facility] Start: 10-01-2023 End: 10-01-[address] Clifton Hung Work Phone: [facility] Work Phone: Start: 10-01-2023 End: 10-01-[address] [facility] Work [facility]: Start: 09-21-2023 Non-patient / Non-visit Dr. Gabino Hung Work Phone: [facility] Work Phone: Start: 09-15-2023 Chart abstracting Clifton romero MD Work Phone: [facility] Comment on above: Outside Ophtalmology Start: 09-11-2023 End: 09-11-2023 Emergency department patient visit Dr. Clifton Hung Work Phone: [facility] Work Phone: Start: 09-08-[address] Yolande Hung [facility] Work Phone: Start: 08-31-2023 Chart abstracting Clifton romero MD Work Phone: [facility] Comment on above: Clinical Update Start: 08-30-2023 End: 08-30-[address] Clifton Hung Work Phone: [facility] Work Phone: Start: 08-02-2023 Chart abstracting Clifton romero MD Work Phone: [facility] Comment on above: Outside Ophthalmolog y Start: 07-23-2023 End: 07-23-2023 Patient encounter procedure Sima Dumont APRN.CNP Work Phone: OB/Gynecology Comment on above: Dysuria (Primary Dx) ; Urine frequency; Vaginal discharge; Vulvovaginal discomfort Start: 07-15-2023 End: 07-15-[address] Clifton Hung Work Phone: [facility] Work Phone: Start: 06-15-2023 Chart abstracting Clifton romero MD Work Phone: [facility] Comment on above: Outside Ophthalmolog y Start: 06-07-2023 Chart abstracting Clifton romero MD Work Phone: [facility] Comment on above: Consult Start: 04-20-2023 End: 05-07-[address] Clifton Hung Work Phone: [facility] Work Phone: Start: 04-20-2023 End: 05-07-[address] Clifton Hung Work Phone: [facility] Work Phone: Start: 04-09-2023 Chart abstracting Clifton romero MD Work Phone: [facility] Comment on above: Outside Diabetic Eye Exam Start: 04-08-2023 ambulatory Clifton allen MD Work Phone: [facility] Comment on above: re: vitamins Start: 04-08-2023 End: 04-08-2023 Ophthalmic examination and evaluation Clifton Hung MD Work Phone: [facility] [place] Start: 04-08-2023 End: 04-08-2023 Patient encounter procedure Clifton Hung MD Work Phone: [facility] [place] Comment on above: Encounter for Medica re annual wellness exam (Primary Dx); Controlled type 2 diabetes mellitus without complication, without long-term current use of insulin (HCC); Diabetic eye exam (HCC); Essential hypertension; Mixed hyperlipidemia; 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 Clifton Hung Work Phone: [facility] Gastroenter[facility] Work Phone: Start: 02-26-2023 End: 02-26-2023 ambulatory Chad Mariee APRN.CNP Work Phone: Hematology/Oncology Comment on above: Ductal carcinoma in situ (DCIS) of left breast (Primary Dx); Encounter for screening mammogram for high-risk patient Start: 02-26-2023 End: 02-26-2023 Patient encounter procedure Chad Mariee APRN.CNP [facility] Start: 02-24-2023 End: 02-24-2023 Subsequent hospital visit by physician Screen Mammo [facility] Mammogram Comment on above: Breast neoplasm, Tis (DCIS), left [D05.12] Start: 02-22-2023 Chart abstracting Clifton romero MD Work Phone: [facility] [place] Comment on above: Outside Neurology Start: 02-19-2023 Chart abstracting Clifton romero MD Work Phone: [facility] Comment on above: Outside Cardiology Start: 02-18-2023 End: 02-18-[address] Clifton Hung Work Phone: [facility] Work Phone: Start: 02-17-2023 ambulatory Chad lance INTERVENTIONAL PAIN PHYSICIANCheyGYMNASIUM TEACHER Work Phone: Hematology/Oncology Comment on above: Lab work Start: 02-09-2023 End: 03-07-[address] Clifton Hnug Work Phone: [facility] [facility] Work Phone: Start: 02-09-2023 End: 02-09-2023 Patient encounter procedure Cherise Sifuentes PA-C Work Phone: [facility] Comment on above: Bacterial sinusitis (Primary Dx) Start: 02-08-2023 Refill Chad lance APRN.GYMNASIUM TEACHER Work Phone: Hematology/Oncology Comment on above: Refill Request Start: 02-05-2023 ambulatory Clifton allen MD Work Phone: [facility] Comment on above: Express care visit Start: 02-05-2023 End: 02-05-2023 Patient encounter procedure Lori Barriga APRN.GYMNASIUM TEACHER Work Phone: [facility] Comment on above: URI with cough and c ongestion (Primary Dx) Start: 01-11-2023 End: 01-11-2023 ambulatory TEO [facility] Start: 01-07-2023 End: 02-05-[address] Clifton Hung Work Phone: [facility] Work Phone: Start: 01-07-2023 End: 02-05-[address] [facility] Start: 12-17-2022 Telephone encounter Chad pollard APRN.GYMNASIUM TEACHER Work Phone: Hematology/Oncology Comment on above: Patient Question Start: 12-11-2022 ambulatory Clifton allen MD Work Phone: [facility] Comment on above: Test results Start: 12-10-2022 End: 12-10-[address] Clifton Hung Work Phone: [facility] Gastroenterology Start: 12-10-2022 ambulatory Sima Dumont APRN.GYMNASIUM TEACHER Work Phone: OB/Gynecology Comment on above: re: Diagnosis Start: 12-09-2022 End: 12-09-2022 Patient encounter procedure Sima Dumont APRN.GYMNASIUM TEACHER Work Phone: OB/Gynecology Comment on above: Vaginal discharge (P rimary Dx) Start: 12-01-2022 Non-patient / Non-visit Dr. Gabino Hung Work Phone: [facility] Start: 12-01-2022 End: 12-01-2022 Admission to same day surgery center Dr. Clifton Hung Work Phone: [facility]End[facility] Start: 12-01-2022 End: 12-01-[address] Clifton Hung Work Phone: [facility] Work Phone: Start: 11-25-2022 Telephone encounter Chad pollard APRN.GYMNASIUM TEACHER Work Phone: Hematology/Oncology Comment on above: Results Start: 11-25-2022 End: 11-25-2022 Subsequent hospital visit by physician Ct [facility] (I-Stat) Work Phone: [facility] Comment on above: Abnormal CT of the a bdomen [R93.5] Start: 11-23-2022 End: 11-23-[address] Clifton Hung Work Phone: [facility] Work Phone: Start: 11-23-2022 End: 11-23-[address] Clifton Hung Work Phone: [facility]-Laboratory, Specimen Start: 11-19-2022 End: 11-19-[address] Clifton Hung Work Phone: [facility] Work Phone: Start: 11-19-2022 End: 11-19-[address] Clifton Hung Work Phone: [facility] Start: 11-19-2022 End: 11-19-[address] 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 diabetes mellitus (HCC) (Primary Dx); Ingrowing toenail Start: 11-02-2022 ambulatory Cherise eubanks PA-C Work Phone: [facility] Comment on above: Illness Start: 11-02-2022 End: 11-02-2022 Patient encounter procedure Shaneka Yang APRN.GYMNASIUM TEACHER Work Phone: [facility] Comment on above: URI, acute (Primary Dx) Start: 10-28-2022 Telephone encounter Chad pollard APRN.GYMNASIUM TEACHER Work Phone: Hematology/Oncology Comment on above: Results (Mammogram r esults) Start: 10-28-2022 End: 10-28-2022 Subsequent hospital visit by physician Diagnostic Mammo [facility] Mammogram Start: 10-05-2022 End: 10-05-2022 Patient encounter procedure Cherise Sifuentes PA-C Work Phone: [facility] Comment on above: Controlled type 2 di abetes mellitus without complication, without long-term current use of insulin (HCC) (Primary Dx); Essential hypertension; Mixed hyperlipidemia; Vitamin D deficiency; Upper back pain; Need for vaccination; 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); Ductal carcinoma in situ (DCIS) of left breast; History of hyperparathyroidism Start: 09-17-2022 Telephone encounter Clifton Hung MD Work Phone: [facility] Comment on above: Results Start: 09-16-2022 ambulatory Chad lance INTERVENTIONAL PAIN PHYSICIAN.GYMNASIUM TEACHER Work Phone: Hematology/Oncology Comment on above: CT Scan results test results Start: 09-16-2022 Telephone encounter Chad pollard APRN.GYMNASIUM TEACHER Work Phone: Hematology/Oncology Comment on above: Future Appointment; Results Start: 09-15-2022 End: 09-15-2022 Subsequent hospital visit by physician Ct [facility] Cat Scan Start: 09-10-2022 ambulatory Chad lance INTERVENTIONAL PAIN PHYSICIAN.GYMNASIUM TEACHER Work Phone: Hematology/Oncology Comment on above: Tamoxifen Start: 09-09-2022 ambulatory Clifton allen MD Work Phone: [facility] Comment on above: Ultrasound results Start: 09-09-2022 Telephone encounter Cherise felix PA-C Work Phone: [facility] Comment on above: Results Start: 09-09-2022 End: 09-09-2022 Subsequent hospital visit by physician Us [facility] Mob 2 Work Phone: Radiology Comment on above: Epigastric pain [R10 .13] Start: 09-08-2022 End: 09-08-2022 Nursing evaluation of patient and report Mi Nurse Work Phone: [facility] Comment on above: Epigastric pain Start: 09-07-2022 ambulatory Clifton allen MD Work Phone: [facility] Comment on above: H Pylori test Start: 09-04-2022 ambulatory Clifton allen MD Work Phone: [facility] Comment on above: H Pylori test Start: 09-03-2022 End: 09-03-2022 Patient encounter procedure Clifton Hung MD Work Phone: [facility] Comment on above: Epigastric pain (Malia alex Dx); Nausea; Need for vaccination Start: 09-03-2022 End: 09-03-[address] Clifton Hung Work Phone: [facility] Start: 08-28-2022 End: 08-28-2022 ambulatory Chad Mariee APRN.GYMNASIUM TEACHER Work Phone: Hematology/Oncology Comment on above: Breast neoplasm, Tis (DCIS), left (Primary Dx); Encounter for screening mammogram for high-risk patient; Nausea; Pain of upper abdomen Medical Tests Start: 08-28-2022 End: 08-28-2022 Patient encounter procedure Sima Dumont APRN.GYMNASIUM TEACHER Work Phone: OB/Gynecology Comment on above: Vaginal atrophy (Malia alex Dx); Vulvar dermatitis Start: 08-28-2022 End: 08-28-2022 Patient encounter procedure Chad Mariee APRN.GYMNASIUM TEACHER Work Phone: [facility] Start: 08-05-2022 ambulatory Sima Dumont APRN.GYMNASIUM TEACHER Work Phone: [facility] Start: 08-05-2022 Patient encounter procedure Alejandra Dumont APRN.GYMNASIUM TEACHER Work Phone: OB/Gynecology Comment on above: Appointment Start: 07-15-2022 Refill Alberto Georges MD Work Phone: Hematology/Oncology Comment on above: Refill Request Start: 07-09-2022 End: 07-09-2022 Patient encounter procedure Sima Dumont APRN.GYMNASIUM TEACHER Work Phone: OB/Gynecology Comment on above: Vagina itching (Prim teo Dx); Dysuria; Urinary frequency; Superficial dyspareunia; Mixed incontinence; Vaginal atrophy; Cystocele, midline; Long-term current use of tamoxifen Start: 07-08-2022 ambulatory Clifton allen MD Work Phone: [facility] Comment on above: infection 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 Gabino Hung Work Phone: [facility] Start: 07-07-2022 End: 07-07-[address] Clifton Hung Work Phone: [facility] Work Phone: Start: 07-07-2022 End: 07-07-[address] [facility] Start: 07-03-2022 ambulatory Clifton allen MD Work Phone: [facility] Comment on above: Infection Start: 06-30-2022 ambulatory Clifton allen MD Work Phone: [facility] Comment on above: A new issue Start: 06-30-2022 End: 06-30-2022 Patient encounter procedure Martha Montoya PA-C Work Phone: [facility] Comment on above: Nasal lesion (Primar y Dx) Start: 06-16-2022 ambulatory Clifton allen MD Work Phone: [facility] Comment on above: infection Start: 06-03-[address] Yolande Hung [facility] Start: 05-29-2022 Non-patient / Non-visit Dr. Gabino Hung Work Phone: [facility] Start: 05-28-2022 End: 05-28-[address] Clifton Hung Work Phone: [facility] Start: 05-28-2022 End: 05-28-[address] Clifton Hung Work Phone: [facility] Start: 04-03-2022 Patient encounter status Mahesh Hung MD Work Phone: [facility] Work Phone: Start: 03-09-2022 ambulatory Chad lance APRN.GYMNASIUM TEACHER Work Phone: Hematology/Oncology Comment on above: Tamoxifen Heartburn Start: 02-25-2022 End: 02-25-2022 ambulatory Chad Mariee APRN.GYMNASIUM TEACHER Work Phone: Hematology/Oncology Comment on above: Breast neoplasm, Tis (DCIS), left (Primary Dx) Start: 02-25-2022 End: 02-25-2022 Patient encounter procedure Chad Mariee APRN.GYMNASIUM TEACHER Work Phone: [place] [facility] Start: 02-23-2022 Documentation procedure Mammog chidi Coordinator [facility] Start: 02-23-2022 Letter encounter Mammography Coordinator [facility] Department Start: 02-23-2022 End: 02-23-2022 Subsequent hospital visit by physician Screen Mammo [facility] Mammogram Comment on above: Breast neoplasm, Tis (DCIS), left [D05.12] Start: 02-10-2022 Refill Cherise MAYS-C Work Phone: [facility] Comment on above: Refill Request Start: 05-26-2021 Ophthalmic examinati on and evaluation Cherise Sifuentes PA-C Work Phone: [facility] Start: 01-21-2021 Patient encounter status Halye RODRIGUEZC Work Phone: [facility] Work Phone: Start: 10-29-2016 Patient encounter status Haley Sifuentes PA-C Work Phone: [facility] Work Phone: Procedures Date Procedure Procedure Detail Performing Clinician Start: 04-24-2025 Urnls dip stick/tablet rgnt auto w/o microscopy Francine Madrid APRN.GYMNASIUM TEACHER Work Phone: Start: 04-19-2025 Adult depression screening assessment Cherise Sifuentes PA-C Work Phone: Start: 03-14-2025 Screening digital breast tomosynthesis bi Chad Mariee APRN.GYMNASIUM TEACHER Work Phone: Start: 08-15-2024 Ct abdomen w/o [...] Screening digital breast tomosynthesis bi Chad Mariee INTERVENTIONAL PAIN PHYSICIAN.GYMNASIUM TEACHER Work Phone: Start: 01-18-2024 Smr prim src gram/giemsa stain bct fungi/cell Sima Dumont APRN.GYMNASIUM TEACHER Work Phone: Start: 01-18-2024 Urnls dip stick/tablet rgnt auto w/o microscopy Sima Dumont APRN.GYMNASIUM TEACHER Work Phone: Start: 01-03-2024 Magnetic resonance cholangiopancreatography [...] stick/tablet rgnt auto w/o microscopy Sima Dumont INTERVENTIONAL PAIN PHYSICIAN.GYMNASIUM TEACHER Work Phone: Start: 02-24-2023 End: 02-24-2023 Mammography Chad Mariee INTERVENTIONAL PAIN PHYSICIAN.GYMNASIUM TEACHER Work Phone: Start: 12-01-[address] Clifton Hung Work Phone: Start: 11-25-2022 Ct abdomen & pelvis w/contrast material Chad Mariee INTERVENTIONAL PAIN PHYSICIAN.GYMNASIUM TEACHER Work Phone: Start: 11-14-2022 STREP A MOLECULAR (POC) Shaneka Yang INTERVENTIONAL PAIN PHYSICIAN.GYMNASIUM TEACHER Work Phone: Start: 11-02-2022 COVID WITH FLUA+B, ROUTINE Shaneka Eder graham INTERVENTIONAL PAIN PHYSICIAN.GYMNASIUM TEACHER Work Phone: Start: 10-28-2022 GUILLERMINA DIAG W ANGELA LEFT Chad Mariee INTERVENTIONAL PAIN PHYSICIAN.GYMNASIUM TEACHER Work Phone: Start: 09-09-2022 Us abdominal real time w/image limited Clifton Hung MD Work Phone: Start: 09-03-2022 INFLUENZA SEASONAL QUADRIVALENT HIGH DOSE AGE 65+ Clifton Hung MD Work Phone: Start: 07-09-2022 BACTERIAL VAGINOSIS AMPLIFICATION Sima fagan INTERVENTIONAL PAIN PHYSICIAN.GYMNASIUM TEACHER Work Phone: Start: 07-09-2022 Iadna trichomonas vaginalis amplified probe tech Sima Dumont APRN.GYMNASIUM TEACHER Work Phone: Start: 07-09-2022 Urnls dip stick/tablet rgnt auto w/o microscopy Sima Dumont APRN.GYMNASIUM TEACHER Work Phone: Start: 07-07-2022 Radionuclide imaging of [...] 06-19-2034 Screening for malignant neoplasm of colon [facility] Start: 04-22-2034 Urine microalbumin profile DTaP,Tdap,Td Vaccine (3 - Td or Tdap) [facility] Start: 08-09-2028 Colonoscopy COLONOSCOPY [facility] Start: 08-09-2028 COLORECTAL CANCER SCREENING COLORECTAL CANCER SCREENING [facility] Start: 08-09-2028 Screening for malignant neoplasm of colon [facility] Start: 04-24-2026 Annual PCP Team Chronic Disease Visit Annual PCP Team Chronic Disease Visit [facility] Start: 04-19-2026 Annual PCP Team Chronic Disease Visit Annual PCP Team Chronic Disease Visit [facility] Start: 04-19-2026 Anxiety Screening Anxiety Screening [facility] Start: 04-19-2026 Depression Screening Depression Screening [facility] Start: 04-19-2026 Diabetic foot examination Diabetic Foot Exam [facility] Start: 04-06-2026 Hepatitis B screening Urine Albumin:Creatinine Ratio [facility] Start: 04-06-2026 Hepatitis B surface antibody level LDL Cholesterol [facility] Start: 03-21-2026 End: 04-20-2026 DBT Breast - bilateral screening GUILLERMINA SCREENING W ANGELA Radiology Routine Ductal carcinoma in situ (DCIS) of left breast Encounter for screening mammogram for high-risk patient Expected: 03/21/2026 (Approximate), Expires: 04/20/2026 [facility] Work Phone: Comment on above: Expected: 03/21/2026 (Approximate), Expi res: 04/20/2026 Start: 03-21-2026 End: 03-21-2026 Patient encounter procedure 03/21/2026 8:10 AM EDT Appointment Mammogram [address] [place] [address] : 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]; Encounter for screening mammogram for high-risk patient [Z12.31] Mammogram Comment on above: : Ductal carcinoma in situ (DCIS) of lef t breast [D05.12]; Encounter for screening mammogram for high-risk patient [Z12.31] Start: 03-14-2026 Screening for malignant neoplasm of breast Mammogram Screening [facility] Start: 03-12-2026 End: 03-12-2026 Patient encounter procedure 03/12/2026 8:40 AM EDT Office Visit Endocrinology [address] [place] [id number] Alexa Matute MD [address] [place] [address] 1 yr f/u-review adrenal CT 02/20/26 Endocrinology Comment on above: 1 yr f/u-review adrenal CT 02/20/26 Start: 02-20-2026 End: 05-22-2026 Corticotropin [Mass/volume] in Plasma ACTH BLD Lab Routine Disorder of adrenal gland (HCC) Expected: 02/20/2026, Expires: 05/22/2026 [facility] Comment on above: Expected: 02/20/2026, Expires: Start: 02-20-2026 End: 04-15-2026 CT Adrenal gland WO and W contrast IV CT ADRENAL WO/W IVCON Radiology Routine Disorder of adrenal gland (HCC) Expected: 02/20/2026, Expires: 04/15/2026 [facility] Work Phone: Comment on above: Expected: 02/20/2026, Expires: Start: 02-20-2026 End: 05-22-2026 DHEA-S BLD DHEA-S BLD Lab Routine Disorder of adrenal gland (HCC) Expected: 02/20/2026, Expires: 05/22/2026 [facility] Comment on above: Expected: 02/20/2026, Expires: Start: 02-20-2026 End: 02-20-2026 Patient encounter procedure 02/20/2026 8:40 AM EDT Appointment Cat Scan [address] [place] [address] 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] Cat Scan Comment on above: 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] Start: 02-13-2026 End: 05-15-2026 Creatinine and Glomerular filtration rate.predicted panel - Serum, Plasma or Blood CREATININE BLD Lab Routine Disorder of adrenal gland (HCC) Expected: 02/13/2026, Expires: 05/15/2026 [facility] Comment on above: Expected: 02/13/2026, Expires: Start: 12-29-2025 Annual PCP Team Chronic Disease Visit Annual PCP Team Chronic Disease Visit [facility] Start: 10-23-2025 End: 10-23-2025 Patient encounter procedure 10/23/2025 9:20 AM EST Office Visit Family [facility] [address] [facility] [place] [place] [address] Clifton Hung MD [address] [facility] [place] [address] 6 month f/u Family [facility] Comment on above: 6 month f/u Start: 10-19-2025 End: 01-18-2026 25-hydroxyvitamin D3 [Mass/volume] in Serum or Plasma VITAMIN D 25 HYDROXY Lab Routine Vitamin D deficiency Expected: 10/19/2025, Expires: 01/18/2026 [facility] Work Phone: Comment on above: Expected: 10/19/2025, Expires: Start: 10-19-2025 End: 01-18-2026 Basic metabolic 2000 panel - Serum or Plasma BASIC METABOLIC PANEL Lab Routine Controlled type 2 diabetes mellitus without complication, without long-term current use of insulin (HCC) Essential hypertension Expected: 10/19/2025, Expires: 01/18/2026 [facility] Comment on above: Expected: 10/19/2025, Expires: Start: 10-19-2025 End: 01-18-2026 Hemoglobin A1c in Blood HEMOGLOBIN A1C Lab Routine Controlled type 2 diabetes mellitus without complication, without long-term current use of insulin (HCC) Type 2 diabetes mellitus with hyperlipidemia (HCC) Expected: 10/19/2025, Expires: 01/18/2026 [facility] Comment on above: Expected: 10/19/2025, Expires: Start: 10-19-2025 End: 01-18-2026 LIPID PANEL, NONFASTING LIPID PANEL, NONFASTING Lab Routine Mixed hyperlipidemia Expected: 10/19/2025, Expires: 01/18/2026 [facility] Comment on above: Expected: 10/19/2025, Expires: Start: 10-19-2025 End: 01-18-2026 Magnesium [Mass/volume] in Serum or Plasma MAGNESIUM Lab Routine Hypomagnesemia Expected: 10/19/2025, Expires: 01/18/2026 [facility] Comment on above: Expected: 10/19/2025, Expires: Start: 10-18-2025 Annual PCP Team Chronic Disease Visit Annual PCP Team Chronic Disease Visit [facility] Start: 10-18-2025 BP Controlled (<130/80) BP Controlled (<130/80) [facility] in Start: 10-18-2025 Covid-19 Vaccine () Covid-19 Vaccine () [facility] Comment on above: Postponed from 07/09/2024 (Declined at t his time) Start: 10-14-2025 Hepatitis B surface antibody level LDL Cholesterol [facility] Start: 10-07-2025 Hemoglobin A1c measurement HbA1C [facility] Start: 09-29-2025 Glaucoma screening Dilated Retinal Exam [facility] Start: 09-22-2025 BP Controlled (<130/80) BP Controlled (<130/80) [facility] Start: 09-21-2025 End: 09-21-2025 ambulatory 09/21/2025 8:30 AM EST Visit (SP) Office Hematology/Oncology [address] [place] [id number] Chad Mariee APRN.GYMNASIUM TEACHER [address] [place] [address] 6MO OV* Hematology/Oncology Comment on above: 6MO OV* Start: 08-21-2025 End: 08-21-2025 Patient encounter procedure 08/21/2025 8:40 AM EDT Office Visit [facility] [address] [place], [place] [id number] Ori Lord DO [address] [place] [address] 6 month NEED NEW UA, NELL [facility] Comment on above: 6 month NEED NEW UA, NELL Start: 07-20-2025 End: 07-20-2025 Patient encounter procedure 07/20/2025 1:05 PM EDT Appointment Radiology [address] [place] [address] Dx: Long-term current use of tamoxifen [Z79.810]; Encounter for screening for osteoporosis [Z13.820]; Asymptomatic postmenopausal status [Z78.0] Radiology Comment on above: Dx: Long-term current use of tamoxifen [ Z79.810]; Encounter for screening for osteoporosis [Z13.820]; Asymptomatic postmenopausal status [Z78.0] Start: 07-11-2025 BP Controlled (<130/80) BP Controlled (<130/80) [facility] Start: 07-09-2025 Influenza vaccination [facility] Start: 07-04-2025 BP Controlled (<130/80) BP Controlled (<130/80) [facility] Start: 05-07-2025 Influenza vaccination [facility] Comment on above: [facility] from 07/09/2024 (Declined at t his time) Start: 05-01-2025 BP Controlled (<130/80) BP Controlled (<130/80) [facility] Start: 04-24-2025 End: 04-24-2025 Patient encounter procedure 04/24/2025 8:00 AM EDT Office Visit Family [facility] [address] [facility] [place] [address] Francine Madrid APRN.GYMNASIUM TEACHER [address] [facility], [place] [phone] UTI symptoms; Pain urination, pelvic/back pain, urinary frequency [facility] Comment on above: UTI symptoms; Pain urination, pelvic/eugene k pain, urinary frequency Start: 04-19-2025 End: 04-19-2025 Patient encounter procedure 04/19/2025 9:00 AM EDT Office Visit [facility] [address] [facility] [place] [address] Cherise Sifuentes PA-C [address] [place], [place] [phone] Medicare wellness [facility] Comment on above: Medicare wellness Start: 04-17-2025 Annual PCP Team Chronic Disease Visit Annual PCP Team Chronic Disease Visit [facility] Start: 04-17-2025 Anxiety Screening Anxiety Screening [facility] Start: 04-17-2025 Covid-19 Vaccine () Covid-19 Vaccine () [facility] Comment on above: Postponed from 07/09/2023 (Declined at t his time) Start: 04-17-2025 Depression Screening Depression Screening [facility] Start: 04-17-2025 Diabetic foot examination Diabetic Foot Exam [facility] Start: 04-17-2025 Hepatitis B screening Urine Albumin:Creatinine Ratio [facility] Start: 04-17-2025 Hepatitis B surface antibody level LDL Cholesterol [facility] Start: 04-14-2025 Hemoglobin A1c measurement HbA1C [facility] Start: 04-09-2025 End: 04-09-2025 Patient encounter procedure 04/09/2025 9:30 AM EDT Office Visit OB/Gynecology [address] [place] [address] Sima Dumont APRN.GYMNASIUM TEACHER [address] [place] [address] Annual OB/Gynecology Comment on above: Annual Start: 04-06-2025 End: 07-06-2025 25-hydroxyvitamin D3 [Mass/volume] in Serum or Plasma VITAMIN D 25 HYDROXY Lab Routine Vitamin D deficiency Expected: 04/06/2025, Expires: 07/06/2025 [facility] Comment on above: Expected: 04/06/2025, Expires: Start: 04-06-2025 End: 07-06-2025 CBC W Auto Differential panel - Blood COMPLETE BLOOD COUNT AND DIFFERENTIAL Lab Routine Type 2 diabetes mellitus with hyperlipidemia (HCC) (HCC) Controlled type 2 diabetes mellitus without complication, without long-term current use of insulin (HCC) Expected: 04/06/2025, Expires: 07/06/2025 [facility] Comment on above: Expected: 04/06/2025, Expires: Start: 04-06-2025 End: 07-06-2025 Cobalamin (Vitamin B12) [Mass/volume] in Serum or Plasma VITAMIN B12 Lab Routine Medication management Gastroesophageal reflux disease without esophagitis Expected: 04/06/2025, Expires: 07/06/2025 [facility] Work Phone: Comment on above: Expected: 04/06/2025, Expires: Start: 04-06-2025 End: 07-06-2025 Comprehensive metabolic 2000 panel - Serum or Plasma COMPREHENSIVE METABOLIC PANEL Lab Routine Type 2 diabetes mellitus with hyperlipidemia (HCC) (HCC) Controlled type 2 diabetes mellitus without complication, without long-term current use of insulin (HCC) Essential hypertension Mixed hyperlipidemia Expected: 04/06/2025, Expires: 07/06/2025 [facility] Comment on above: Expected: 04/06/2025, Expires: Start: 04-06-2025 End: 07-06-2025 Hemoglobin A1c in Blood HEMOGLOBIN A1C Lab Routine Type 2 diabetes mellitus with hyperlipidemia (HCC) (HCC) Controlled type 2 diabetes mellitus without complication, without long-term current use of insulin (HCC) Expected: 04/06/2025, Expires: 07/06/2025 [facility] Comment on above: Expected: 04/06/2025, Expires: Start: 04-06-2025 End: 07-06-2025 LIPID PANEL, NONFASTING LIPID PANEL, NONFASTING Lab Routine Type 2 diabetes mellitus with hyperlipidemia (HCC) (HCC) Controlled type 2 diabetes mellitus without complication, without long-term current use of insulin (HCC) Essential hypertension Mixed hyperlipidemia Expected: 04/06/2025, Expires: 07/06/2025 [facility] Comment on above: Expected: 04/06/2025, Expires: Start: 04-06-2025 End: 07-06-2025 Magnesium [Mass/volume] in Serum or Plasma MAGNESIUM Lab Routine Medication management Gastroesophageal reflux disease without esophagitis Expected: 04/06/2025, Expires: 07/06/2025 [facility] Comment on above: Expected: 04/06/2025, Expires: Start: 04-06-2025 End: 07-06-2025 Microalbumin/Creatinine [Mass Ratio] in Urine ALBUMIN/CREATININE RATIO, URINE Lab Routine Controlled type 2 diabetes mellitus without complication, without long-term current use of insulin (HCC) Expected: 04/06/2025, Expires: 07/06/2025 [facility] Comment on above: Expected: 04/06/2025, Expires: Start: 04-06-2025 End: 07-06-2025 Urinalysis complete panel - Urine URINALYSIS, WITH MICROSCOPIC Lab Routine Type 2 diabetes mellitus with hyperlipidemia (HCC) (HCC) Controlled type 2 diabetes mellitus without complication, without long-term current use of insulin (HCC) Essential hypertension Mixed hyperlipidemia Expected: 04/06/2025, Expires: 07/06/2025 [facility] Comment on above: Expected: 04/06/2025, Expires: Start: 04-06-2025 End: 04-06-2025 ambulatory [facility] Start: 03-27-2025 Glaucoma screening Dilated Retinal Exam [facility] Start: 03-22-2025 Annual PCP Team Chronic Disease Visit Annual PCP Team Chronic Disease Visit [facility] Start: 05-15-2025 BP Controlled (<130/80) BP Controlled (<130/80) [facility] Start: 03-21-2025 End: 03-21-2025 ambulatory 03/21/2025 8:00 AM EDT Visit (SP) Office Hematology/Oncology [address] [place] [address] Chad Mariee APRN.[employer] [address] [place] [address] 6 MTH OV/MAMM 03/14* R/S FROM 03/20 Hematology/Oncology Comment on above: 6 MTH OV/MAMM 03/14* R/S FROM 03/20 Start: 03-20-2025 End: 03-20-2025 ambulatory 03/20/2025 8:00 AM EDT Visit (SP) Office Hematology/Oncology [address] [place] [address] Chad Mariee APRN.[employer] [address] [place] [address] 6 MTH OV* Hematology/Oncology Comment on above: 6 MTH OV* Start: 03-16-2025 End: 06-15-2025 Thyrotropin [Units/volume] in Serum or Plasma THYROID STIMULATING HORMONE Lab Routine Cold intolerance Expected: 03/16/2025, Expires: 06/15/2025 [facility] Comment on above: Expected: 03/16/2025, Expires: Start: 03-16-2025 End: 03-16-2025 Patient encounter procedure 03/16/2025 8:40 AM EDT Office Visit Endocrinology [address] [place] [address] Alexa Matute MD [address] [place] [address] 4 wk f/u-adrenal Endocrinology Comment on above: 4 wk f/u-adrenal Start: 03-14-2025 End: 10-14-2025 DBT Breast - bilateral screening GUILLERMINA SCREENING W ANGELA Radiology Routine Ductal carcinoma in situ (DCIS) of left breast Encounter for screening mammogram for high-risk patient Expected: 03/14/2025 (Approximate), Expires: 10/14/2025 [facility] Work Phone: Comment on above: Expected: 03/14/2025 (Approximate), Expi res: 10/14/2025 Start: 03-14-2025 End: 03-14-2025 Patient encounter procedure 03/14/2025 7:30 AM EDT Appointment Mammogram [address] [place] [address] MAMMO W ANGELA Mammogram Comment on above: MAMMO W ANGELA Start: 03-09-2025 Screening for malignant neoplasm of breast Mammogram Screening [facility] Start: 02-21-2025 End: 02-21-2025 ambulatory 02/21/2025 9:30 AM EDT Results Only [facility] [address] [place] [address] [facility] Start: 02-19-2025 End: 02-19-2025 Patient encounter procedure 02/19/2025 8:40 AM EDT Office Visit [facility] [address] [place] [address] [id number] Ori Lord DO [address] [place] [id number] 6 mo f/u [facility] [employer] Comment on above: 6 mo f/u Start: 02-16-2025 End: 05-18-2025 Corticotropin [Mass/volume] in Plasma ACTH BLD Lab Routine Adenoma of right adrenal gland Expected: 02/16/2025, Expires: 05/18/2025 [facility] Comment on above: Expected: 02/16/2025, Expires: Start: 02-16-2025 End: 05-18-2025 Cortisol [Mass/volume] in Serum or Plasma --post dose dexamethasone CORTISOL SUPRES POST Lab Routine Adenoma of right adrenal gland Expected: 02/16/2025, Expires: 05/18/2025 [facility] Comment on above: Expected: 02/16/2025, Expires: Start: 02-16-2025 End: 05-18-2025 DEXAMETHASONE DEXAMETHASONE Lab Routine Adenoma of right adrenal gland Expected: 02/16/2025, Expires: 05/18/2025 [facility] Work Phone: Comment on above: Expected: 02/16/2025, Expires: Start: 02-14-2025 End: 02-14-2025 Patient encounter procedure 02/14/2025 9:20 AM EDT Office Visit [facility] [address] [place] [address] Ori Lord DO [address] [place] [address] 6 mo f/u [employer] Comment on above: 6 mo f/u Start: 02-09-2025 End: 02-09-2025 Patient encounter procedure 02/09/2025 9:20 AM EDT Office Visit Endocrinology [address] [place] [address] Alexa Mattue MD [address] [place] [address] 2 month follow up Endocrinology Comment on above: 2 month follow up Start: 02-02-2025 End: 02-02-2025 Patient encounter procedure 02/02/2025 10:00 AM EDT Office Visit [facility] [address] [place] [address] Ori Lord DO [address] [place], [place] [address] 6 mo f/u [facility] [employer] Comment on above: 6 mo f/u Start: 01-13-2025 Annual PCP Team Chronic Disease Visit Annual PCP Team Chronic Disease Visit [facility] Start: 01-06-2025 Glaucoma screening Dilated Retinal Exam [facility] Start: 12-31-2024 Annual PCP Team Chronic Disease Visit Annual PCP Team Chronic Disease Visit [facility] Start: 11-23-2024 Annual PCP Team Chronic Disease Visit Annual PCP Team Chronic Disease Visit [facility] Start: 11-08-2024 Advance Directive Discussion Advance Directive Discussion [facility] Start: 11-03-2024 End: 02-02-2025 Corticotropin [Mass/volume] in Plasma ACTH BLD Lab Routine Adenoma of right adrenal gland Expected: 11/03/2024, Expires: 02/02/2025 [facility] Comment on above: Expected: 11/03/2024, Expires: Start: 11-03-2024 End: 11-03-2024 Patient encounter procedure 11/03/2024 8:40 AM EST Office Visit Endocrinology [address] [place] [address] Alexa Matute MD [address] [place] [address] 4 wk f/u (soonest) Endocrinology Comment on above: 4 wk f/u (soonest) Start: 10-18-2024 End: 10-18-2024 Patient encounter procedure 10/18/2024 9:20 AM EST Office Visit [facility] [place] [address] [place] [address] Clifton Hung MD [address] [place] [address] 6 month follow up Family [facility] [place] Comment on above: 6 month follow up Start: 10-17-2024 Hemoglobin A1c measurement HbA1C [facility] Start: 10-13-2024 End: 01-12-2025 25-hydroxyvitamin D3 [Mass/volume] in Serum or Plasma VITAMIN D 25 HYDROXY Lab Routine Vitamin D deficiency Expected: 10/13/2024, Expires: 01/12/2025 [facility] Work Phone: Comment on above: Expected: 10/13/2024, Expires: Start: 10-13-2024 End: 01-12-2025 Basic metabolic 2000 panel - Serum or Plasma BASIC METABOLIC PANEL Lab Routine Controlled type 2 diabetes mellitus without complication, without long-term current use of insulin ([facility]) Vitamin D deficiency Mixed hyperlipidemia Expected: 10/13/2024, Expires: 01/12/2025 [facility] Comment on above: Expected: 10/13/2024, Expires: Start: 10-13-2024 End: 01-12-2025 Hemoglobin A1c in Blood HEMOGLOBIN A1C Lab Routine Controlled type 2 diabetes mellitus without complication, without long-term current use of insulin ([facility]) Expected: 10/13/2024, Expires: 01/12/2025 [facility] Comment on above: Expected: 10/13/2024, Expires: Start: 10-13-2024 End: 01-12-2025 LIPID PANEL, NONFASTING LIPID PANEL, NONFASTING Lab Routine Mixed hyperlipidemia Expected: 10/13/2024, Expires: 01/12/2025 [facility] Comment on above: Expected: 10/13/2024, Expires: Start: 10-08-2024 Annual PCP Team Chronic Disease Visit Annual PCP Team Chronic Disease Visit [facility] Start: 10-03-2024 End: 10-03-2024 ambulatory 10/03/2024 8:15 AM EST Results Only [facility] [address] [place] [address] Lab Part 2 [facility] Comment on above: Lab Part 2 Start: 09-29-2024 Hepatitis B surface antibody level LDL Cholesterol [facility] Start: 09-22-2024 End: 12-22-2024 ALDOSTERONE/DIRECT RENIN RATIO ALDOSTERONE/DIRECT RENIN RATIO Lab Routine Adenoma of right adrenal gland Expected: 09/22/2024, Expires: 12/22/2024 [facility] Work Phone: Comment on above: Expected: 09/22/2024, Expires: Start: 09-22-2024 End: 12-22-2024 Corticotropin [Mass/volume] in Plasma ACTH BLD Lab Routine Adenoma of right adrenal gland Expected: 09/22/2024, Expires: 12/22/2024 [facility] Comment on above: Expected: 09/22/2024, Expires: Start: 09-22-2024 End: 12-22-2024 Cortisol [Mass/volume] in Serum or Plasma --post dose dexamethasone CORTISOL SUPRES POST Lab Routine Adenoma of right adrenal gland Expected: 09/22/2024, Expires: 12/22/2024 [facility] Comment on above: Expected: 09/22/2024, Expires: Start: 09-22-2024 End: 12-22-2024 DEXAMETHASONE DEXAMETHASONE Lab Routine Adenoma of right adrenal gland Expected: 09/22/2024, Expires: 12/22/2024 [facility] Comment on above: Expected: 09/22/2024, Expires: Start: 09-22-2024 End: 12-22-2024 DHEA-S BLD DHEA-S BLD Lab Routine Adenoma of right adrenal gland Expected: 09/22/2024, Expires: 12/22/2024 [facility] Comment on above: Expected: 09/22/2024, Expires: Start: 09-22-2024 End: 12-22-2024 Potassium [Moles/volume] in Serum or Plasma POTASSIUM Lab Routine Adenoma of right adrenal gland Expected: 09/22/2024, Expires: 12/22/2024 [facility] Comment on above: Expected: 09/22/2024, Expires: Start: 09-22-2024 End: 09-22-2024 Patient encounter procedure 09/22/2024 9:20 AM EST Office Visit Endocrinology [address] [place] [address] Alexa Matute MD [address] [place] [address] follow up Endocrinology Comment on above: follow up Start: 09-14-2024 End: 09-14-2024 ambulatory 09/14/2024 9:00 AM EST Visit (SP) Office Hematology/Oncology [address] [place] [id number] Chad Mariee APRN.[employer] [address] [place] [address] 6MO OV* Hematology/Oncology Comment on above: 6MO OV* Start: 08-15-2024 End: 08-15-2024 Patient encounter procedure 08/15/2024 9:00 AM EDT Appointment Cat Scan [address] [place] [address] 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.01]; 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] [facility] Comment on above: 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.01]; 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] Start: 08-08-2024 End: 08-08-2024 ambulatory 08/08/2024 8:15 AM EDT Results Only Laurent Rush [facility] [address] [place] [address] [facility] Comment on above: Lab for CT Start: 08-04-2024 End: 08-04-2024 Patient encounter procedure 08/04/2024 10:00 AM EDT Office Visit [facility] [address] [place] [id number] Ori Lord [address] [address] cysto 1 mo [facility] Comment on above: cysto 1 mo Start: 07-23-2024 BP Controlled (<130/80) BP Controlled (<130/80) [facility] Start: 07-11-2024 End: 10-10-2024 CREATININE BLD CREATININE BLD Lab Routine Adenoma of right adrenal gland Expected: 07/11/2024, Expires: 10/10/2024 [facility] Comment on above: Expected: 07/11/2024, Expires: Start: 07-11-2024 End: 07-11-2024 Patient encounter procedure 07/11/2024 1:00 PM EDT Office Visit Endocrinology [address] [place] [address] Alexa Matute MD [address] [facility] [place] [address] 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.01] Endocrinology Comment on above: 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.01] Start: 07-09-2024 Covid-19 Vaccine () Covid-19 Vaccine () [facility] Start: 07-09-2024 Covid-19 Vaccine () Covid-19 Vaccine () [facility] Start: 07-09-2024 Influenza vaccination Influenza Vaccine (#1) [facility] Start: 07-04-2024 End: 07-04-2024 Patient encounter procedure [facility] Comment on above: 6 wk FU Start: 05-23-2024 Glaucoma screening Dilated Retinal Exam [facility] Start: 05-23-2024 Hepatitis C antibody, confirmatory test DILATED RETINAL EXAM [facility] Start: 05-23-2024 End: 05-23-2024 Patient encounter procedure 05/23/2024 11:40 AM EDT Office Visit [facility] [address] [place] [address] Ori Landin [address] [place] [phone] f/u for pelvic [facility] Comment on above: f/u for pelvic Start: 04-17-2024 End: 07-17-2024 25-hydroxyvitamin D3 [Mass/volume] in Serum or Plasma [facility] Work Phone: Comment on above: Expected: 04/17/2024, Expires: Start: 04-17-2024 End: 04-17-2024 Patient encounter procedure 04/17/2024 8:40 AM EDT Office Visit [facility] [address] [place], [place] [id number] Francine Madrid APRN.[facility] [address] [place] [address] 3 month follow up Family Medicine [facility] Comment on above: 3 month follow up Start: 04-08-2024 3 comp foot exam completed DIABETIC FOOT EXAM [facility] Start: 04-08-2024 ANNUAL PCP TEAM CHRONIC DISEASE VISIT ANNUAL PCP TEAM CHRONIC DISEASE VISIT [facility] Start: 04-08-2024 BP CONTROLLED (<130/80) BP CONTROLLED (<130/80) [facility] Start: 04-08-2024 Diabetic foot examination Diabetic Foot Exam [facility] Start: 04-02-2024 Hepatitis B screening URINE ALBUMIN:CREATININE RATIO [facility] Start: 04-02-2024 Hepatitis B surface antibody level LDL CHOLESTEROL [facility] Start: 03-29-2024 Hemoglobin A1c measurement HbA1C [facility] Start: 03-29-2024 Hemoglobin A1c/Hemoglobin.total in Blood HbA1C [facility] Start: 03-14-2024 End: 03-14-2024 ambulatory 03/14/2024 10:00 AM EDT Visit (SP) Office Hematology/Oncology [address] [place] [address] Chad Mariee APRN.[employer] [address] [place] [address] 7 MO OV/MAMM 5/2* Hematology/Oncology Comment on above: 7 MO OV/MAMM 5/2* Start: 03-09-2024 End: 03-09-2024 Patient encounter procedure 03/09/2024 8:30 AM EDT Appointment Mammogram [address] [place] [address] Mammogram Start: 02-25-2024 Mammography [facility] Start: 02-25-2024 Screening for malignant neoplasm of breast Mammogram Screening [facility] Start: 02-24-2024 Urine microalbumin profile [facility] Start: 02-10-2024 ANNUAL PCP TEAM CHRONIC DISEASE VISIT ANNUAL PCP TEAM CHRONIC DISEASE VISIT [facility] Start: 02-10-2024 BP CONTROLLED (<130/80) BP CONTROLLED (<130/80) [facility] Start: 02-06-2024 BP CONTROLLED (<130/80) BP CONTROLLED (<130/80) [facility] Start: 01-17-2024 End: 04-17-2024 C peptide [Mass/volume] in Serum or Plasma C-PEPTIDE BLD Lab Routine Hyperglycemia Pancreatic insufficiency Expected: 01/17/2024, Expires: 04/17/2024 [facility] Work Phone: Comment on above: Expected: 01/17/2024, Expires: 4 Start: 01-17-2024 End: 04-17-2024 Glutamate decarboxylase 65 Ab [Units/volume] in Serum GLUTAMIC AC DECARBOXYLASE AB Lab Routine Hyperglycemia Pancreatic insufficiency Expected: 01/17/2024, Expires: 04/17/2024 [facility] Work Phone: Comment on above: Expected: 01/17/2024, Expires: Start: 12-28-2023 [facility] Start: 12-28-2023 Respiratory secretion precautions [facility] Start: 12-22-2023 [facility] Start: 12-09-2023 BP CONTROLLED (<130/80) BP CONTROLLED (<130/80) [facility] Start: 11-08-2023 Advance Directive Discussion Advance Directive Discussion [facility] Start: 11-08-2023 Behavioral Health Screening Behavioral Health Screening [facility] Start: 11-08-2023 Depression Assessment Depression Assessment [facility] Start: 10-05-2023 ANNUAL PCP TEAM CHRONIC DISEASE VISIT ANNUAL PCP TEAM CHRONIC DISEASE VISIT [facility] Start: 10-03-2023 Hemoglobin A1c/Hemoglobin.total in Blood HBA1C [facility] Start: 09-24-2023 End: 11-24-2023 Hemoglobin A1c in Blood HGB A1C Lab Routine Controlled type 2 diabetes mellitus without complication, without long-term current use of insulin (HCC) Expected: 09/24/2023, Expires: 11/24/2023 [facility] Work Phone: Comment on above: Expected: 09/24/2023, Expires: 4 Start: 09-24-2023 End: 11-24-2023 LIPID PANEL, NONFASTING LIPID PANEL, NONFASTING Lab Routine Controlled type 2 diabetes mellitus without complication, without long-term current use of insulin (HCC) Essential hypertension Mixed hyperlipidemia 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) Expected: 09/24/2023, Expires: 11/24/2023 [facility] Work Phone: Comment on above: Expected: 09/24/2023, Expires: 4 Start: 09-15-2023 Hepatitis B surface antibody level LDL CHOLESTEROL [facility] Start: 09-11-2023 [facility] Start: 09-03-2023 ANNUAL PCP TEAM CHRONIC DISEASE VISIT ANNUAL PCP TEAM CHRONIC DISEASE VISIT [facility] Start: 09-03-2023 BP CONTROLLED (<130/80) BP CONTROLLED (<130/80) [facility] Start: 08-28-2023 BP CONTROLLED (<130/80) BP CONTROLLED (<130/80) [facility] Start: 07-09-2023 BP CONTROLLED (<130/80) BP CONTROLLED (<130/80) [facility] Start: 07-09-2023 Covid-19 Vaccine ( season) Covid-19 Vaccine () [facility] Start: 06-30-2023 BP CONTROLLED (<130/80) BP CONTROLLED (<130/80) [facility] Start: 05-30-2023 Hepatitis C antibody, confirmatory test DILATED RETINAL EXAM [facility] Start: 04-04-2023 End: 06-04-2023 25-hydroxyvitamin D3 [Mass/volume] in Serum or Plasma VITAMIN D 25 HYDROXY Lab Routine Vitamin D deficiency Expected: 04/04/2023, Expires: 06/04/2023 [facility] Work Phone: Comment on above: Expected: 04/04/2023, Expires: 3 Start: 04-04-2023 End: 06-04-2023 ALBUMIN/CREAT RATIO RND UR ALBUMIN/CREAT RATIO RND UR Lab Routine Controlled type 2 diabetes mellitus without complication, without long-term current use of insulin (HCC) Expected: 04/04/2023, Expires: 06/04/2023 [facility] Work Phone: Comment on above: Expected: 04/04/2023, Expires: 3 Start: 04-04-2023 End: 06-04-2023 CBC W Auto Differential panel - Blood CBC + DIFF Lab Routine Controlled type 2 diabetes mellitus without complication, without long-term current use of insulin (HCC) Expected: 04/04/2023, Expires: 06/04/2023 [facility] Work Phone: Comment on above: Expected: 04/04/2023, Expires: 3 Start: 04-04-2023 End: 06-04-2023 Comprehensive metabolic 2000 panel - Serum or Plasma COMP METABOLIC PANEL Lab Routine Essential hypertension Controlled type 2 diabetes mellitus without complication, without long-term current use of insulin (HCC) Expected: 04/04/2023, Expires: 06/04/2023 [facility] Work Phone: Comment on above: Expected: 04/04/2023, Expires: Start: 04-04-2023 End: 06-04-2023 Hemoglobin A1c in Blood HGB A1C Lab Routine Controlled type 2 diabetes mellitus without complication, without long-term current use of insulin (HCC) Expected: 04/04/2023, Expires: 06/04/2023 [facility] Work Phone: Comment on above: Expected: 04/04/2023, Expires: 3 Start: 04-04-2023 End: 06-04-2023 LIPID PANEL, NONFASTING LIPID PANEL, NONFASTING Lab Routine Mixed hyperlipidemia Expected: 04/04/2023, Expires: 06/04/2023 [facility] Work Phone: Comment on above: Expected: 04/04/2023, Expires: 3 Start: 04-04-2023 End: 06-04-2023 Urinalysis complete panel - Urine URINALYSIS, WITH MICROSCOPIC Lab Routine Essential hypertension Controlled type 2 diabetes mellitus without complication, without long-term current use of insulin (HCC) Expected: 04/04/2023, Expires: 06/04/2023 [facility] Work Phone: Comment on above: Expected: 04/04/2023, Expires: 3 Start: 04-03-2023 3 comp foot exam completed DIABETIC FOOT EXAM [facility] Start: 04-03-2023 ANNUAL PCP TEAM CHRONIC DISEASE VISIT ANNUAL PCP TEAM CHRONIC DISEASE VISIT [facility] Start: 04-03-2023 BP CONTROLLED (<130/80) BP CONTROLLED (<130/80) [facility] Start: 03-30-2023 Hepatitis B screening URINE ALBUMIN:CREATININE RATIO [facility] Start: 03-30-2023 Hepatitis B surface antibody level LDL CHOLESTEROL [facility] Start: 03-15-2023 Hemoglobin A1c/Hemoglobin.total in Blood HBA1C [facility] Start: 02-25-2023 BP CONTROLLED (<130/80) BP CONTROLLED (<130/80) [facility] Start: 02-23-2023 Mammography MAMMOGRAM [facility] Start: 01-16-2023 COVID-19 VACCINE (6 - Moderna series) COVID-19 VACCINE (6 - Moderna series) [facility] Start: 12-01-2022 Colonoscopy w/biopsy single/multiple COLONOSCOPY AND BIOPSY [facility] Start: 12-01-2022 Egd transoral biopsy single/multiple EGD BIOPSY SINGLE/MULTIPLE [facility] Start: 12-01-2022 Patient discharge [facility] Start: 11-08-2022 ADVANCE DIRECTIVE DISCUSSION ADVANCE DIRECTIVE DISCUSSION [facility] Start: 11-08-2022 DEPRESSION ASSESSMENT DEPRESSION ASSESSMENT [facility] Start: 09-30-2022 Hemoglobin A1c/Hemoglobin.total in Blood HBA1C [facility] Start: 09-26-2022 ANNUAL PCP TEAM CHRONIC DISEASE VISIT ANNUAL PCP TEAM CHRONIC DISEASE VISIT [facility] Start: 09-16-2022 Hepatitis B surface antibody level LDL CHOLESTEROL [facility] Start: 09-03-2022 End: 11-03-2022 Amylase [Enzymatic activity/volume] in Serum or Plasma [facility] Work Phone: Comment on above: Expected: 09/03/2022, Expires: 2 Start: 09-03-2022 End: 11-03-2022 CBC W Auto Differential panel - Blood [facility] Work Phone: Comment on above: Expected: 09/03/2022, Expires: 2 Start: 09-03-2022 End: 11-03-2022 Helicobacter pylori [Quantitative] in Stomach by urea breath test BREATH TEST H PYLORI Lab Routine Epigastric pain Expected: 09/03/2022, Expires: 11/03/2022 [facility] Work Phone: Comment on above: Expected: 09/03/2022, Expires: 2 Start: 09-03-2022 End: 11-03-2022 Hepatic function 2000 panel - Serum or Plasma [facility] Work Phone: Comment on above: Expected: 09/03/2022, Expires: 2 Start: 09-03-2022 End: 11-03-2022 Lipase [Enzymatic activity/volume] in Serum or Plasma [facility] Work Phone: Comment on above: Expected: 09/03/2022, Expires: 2 Start: 2022 ADVANCE DIRECTIVE DISCUSSION ADVANCE DIRECTIVE DISCUSSION [facility] Start: 2022 PNEUMOCOCCAL (3 - PPSV23 or PCV20) PNEUMOCOCCAL (3 - PPSV23 or PCV20) [facility] Start: 2022 PNEUMOCOCCAL: 65+ (3 - PPSV23 if available, else PCV20) PNEUMOCOCCAL: 65+ (3 - PPSV23 if available, else PCV20) [facility] Start: 2022 PNEUMOCOCCAL: 65+ (3 - PPSV23 or PCV20) PNEUMOCOCCAL: 65+ (3 - PPSV23 or PCV20) [facility] Start: 06-30-2022 End: 08-30-2022 Bacteria identified in Wound by Culture [facility] Work Phone: Comment on above: Expected: 06/30/2022, Expires: 2 Start: 06-30-2022 End: 08-30-2022 Herpes simplex virus+Varicella zoster virus DNA [Presence] in Unspecified specimen by MICHAEL with probe detection [facility] Work Phone: Comment on above: Expected: 06/30/2022, Expires: 2 Start: 05-26-2022 3 comp foot exam completed DIABETIC FOOT EXAM [facility] Start: 05-24-2022 Hepatitis C antibody, confirmatory test DILATED RETINAL EXAM [facility] Start: 05-12-2022 Adult depression screening assessment DEPRESSION SCREENING [facility] Start: 03-16-2022 Hemoglobin A1c/Hemoglobin.total in Blood HBA1C [facility] Start: 02-21-2022 Mammography MAMMOGRAM [facility] Start: 01-18-2022 Hepatitis B screening URINE ALBUMIN:CREATININE RATIO [facility] Start: 12-26-2021 COVID-19 VACCINE (5 - Booster for Moderna series) COVID-19 VACCINE (5 - Booster for Moderna series) [facility] Start: 11-08-2021 DEPRESSION ASSESSMENT DEPRESSION ASSESSMENT [facility] Start: 07-08-2018 FECAL OCCULT BLOOD FECAL OCCULT BLOOD [facility] Start: 07-08-2018 Screening for malignant neoplasm of colon Fecal Occult Blood [facility] Start: 10-25-2017 End: 10-25-2017 Appointment Appointment [employer] Work Phone: Start: 07-22-2017 End: 07-22-2017 Appointment Appointment [employer] Work Phone: Start: 07-22-2017 End: 07-22-2017 Follow Up Appt 3 months Follow Up Appt 3 months [employer] Work Phone: Start: 07-22-2017 End: 07-22-2017 MMM MMM [employer] Phone: Start: 07-22-2017 End: 07-22-2017 Follow Up Appt 3 months Follow Up Appt 3 months [employer] Work Phone: Start: 07-22-2017 End: 07-22-2017 MMM MMM [employer] Phone: Start: 2017 Hepatitis B Vaccine (1 of 3 - Risk 3-dose series) Hepatitis B Vaccine (1 of 3 - Risk 3-dose series) [facility] Start: 2017 RSV Vaccine (1 - 1-dose 60+ series) RSV Vaccine (1 - 1-dose 60+ series) [facility] Start: 04-23-2017 End: 04-23-2017 Follow Up Appt 3 months Follow Up Appt 3 months [employer] Work Phone: Start: 04-23-2017 End: 04-23-2017 MMM MMM [facility] Work Phone: Start: 04-23-2017 End: 04-23-2017 Pulmonary Function Test - complete Pulmonary Function Test - complete [facility] Work Phone: Start: 04-23-2017 End: 04-23-2017 Appointment Appointment [facility] Work Phone: Start: 04-23-2017 End: 04-23-2017 Follow Up Appt 3 months Follow Up Appt 3 months [facility] Work Phone: Start: 04-23-2017 End: 04-23-2017 MMM MMM [facility] Work Phone: Start: 04-23-2017 End: 04-23-2017 Pulmonary Function Test - complete Pulmonary Function Test - complete [facility] Work Phone: Start: 03-31-2017 End: 04-01-2017 Echocardiography Echocardiogram (complete) [facility] Work Phone: Start: 03-31-2017 End: 04-01-2017 Nuclear stress test -Lexiscan Nuclear stress test -Lexiscan [facility] Work Phone: Start: 03-31-2017 End: 04-19-2017 Echocardiography Echocardiogram (complete) [facility] Work Phone: Start: 03-31-2017 End: 04-19-2017 Nuclear stress test -Lexiscan Nuclear stress test -Lexiscan [facility] Work Phone: Start: 02-19-2017 End: 01-20-2017 *Hepatic Function Panel *Hepatic Function Panel [facility] Work Phone: Start: 02-19-2017 End: 04-21-2017 Lipid panel [AGGREGATE] *Lipid Profile CC PCP [facility] Work Phone: Start: 02-19-2017 End: 01-20-2017 *Hepatic Function Panel *Hepatic Function Panel [facility] Work Phone: Start: 02-19-2017 End: 04-21-2017 Lipid panel [AGGREGATE] *Lipid Profile CC PCP [employer] Work Phone: Start: 01-20-2017 End: 04-19-2017 Cardiac Rehab [facility] [address] [place], [address] [employer] Phone: Start: 01-20-2017 End: 01-20-2017 Cardiovascular stress test using treadmill Treadmill stress test (no imaging) [employer] Phone: Start: 01-20-2017 End: 01-20-2017 Follow Up Appt 3 months Follow Up Appt 3 months [employer] Phone: Start: 01-20-2017 End: 01-20-2017 PFM PF [employer] Phone: Start: 01-20-2017 End: 04-19-2017 Cardiac Re[facility] [address] [place], [address] [employer] Phone: Start: 01-20-2017 End: 01-20-2017 Cardiovascular stress test using treadmill Treadmill stress test (no imaging) [employer] Phone: Start: 01-20-2017 End: 01-20-2017 Follow Up Appt 3 months Follow Up Appt 3 months [employer] Phone: Start: 01-20-2017 End: 01-20-2017 PFM [employer] Phone: Start: 2002 COLOGUARD (FIT-DNA) COLOGUARD (FIT-DNA) [facility] Start: [address] COLONOGRAPHY [facility] Start: 2002 Screening for malignant neoplasm of colon [facility] Start: 2002 SIGMOIDOSCOPY SIGMOIDOSCOPY [facility] Start: 1975 BP CONTROLLED (<130/80) BP CONTROLLED (<130/80) [facility] inic Amylase [Enzymatic activity/volume] in Serum or Plasma [facility] Bacteria identified in Urine by Culture URINE CULTURE Microbiology Routine Dysuria 07/09/2022 9:15 AM [facility] Work Phone: Bacteria identified in Urine by Culture URINE CULTURE Microbiology Routine Dysuria Urine frequency 07/23/2023 11:49 AM [facility] Work Phone: Bacteria identified in Urine by Culture URINE CULTURE Microbiology Routine Dysuria Urinary frequency [facility] Bacteria identified in Urine by Culture URINE CULTURE Microbiology Routine Abnormal urinalysis 04/19/2024 10:59 AM [facility] Work Phone: Bacteria identified in Urine by Culture URINE CULTURE Microbiology Routine Microscopic hematuria 04/25/2024 10:51 AM [facility] Work Phone: Bacteria identified in Urine by Culture URINE CULTURE Microbiology Routine Urinary incontinence, mixed Ordered: 05/23/2024 [facility] Work Phone: Comment on above: Ordered: 05/23/2024 Bacteria identified in Urine by Culture BACTERIAL CULTURE, URINE Microbiology Routine Urinary tract infection with hematuria, site unspecified 04/24/2025 8:01 AM [facility] Work Phone: BACTERIAL VAGINOSIS AMPLIFICATION BACTERIAL VAGINOSIS AMPLIFICATION Lab Routine Vaginal discharge Ordered: 12/09/2022 [facility] Work Phone: Comment on above: Ordered: 12/09/2022 End: 05-09-2026 BD DXA TRABECULAR BONE SCORE (TBS) BD DXA TRABECULAR BONE SCORE (TBS) Radiology Routine Long-term current use of tamoxifen Encounter for screening for osteoporosis Asymptomatic postmenopausal status 1 Occurrences starting 04/09/2025 until 05/09/2026 [facility] Comment on above: 1 Occurrences starting 04/09/2025 until 05/09/2026 C peptide [Mass/volu me] in Serum or Plasma C-PEPTIDE BLD Lab Routine Hyperglycemia Pancreatic insufficiency 01/18/2024 2:48 PM [facility] Work Phone: CHINO / TRICHOMONA S AMPLIFICATION CHINO / TRICHOMONAS AMPLIFICATION Microbiology Routine Vaginal discharge Ordered: 12/09/2022 [facility] Work Phone: Comment on above: Ordered: 12/09/2022 Cardiac event recording [facility] Work Phone: COVID & INFLUENZA A/ B & RSV PCR, ROUTINE COVID & INFLUENZA A/B & RSV PCR, ROUTINE Microbiology Routine Acute cough Ordered: 12/29/2024 [facility] Work Phone: Comment on above: Ordered: 12/29/2024 CREATININE, 24 HOUR URINE CREATI NINE, 24 HOUR URINE Lab Routine Adenoma of right adrenal gland Ordered: 11/03/2024 [facility] Comment on above: Ordered: 11/03/2024 End: 09-27-2023 Ct abdomen & pelvis w/contrast material CT ABD/PEL W IVCON Radiology Routine Breast neoplasm, Tis (DCIS), left Nausea Pain of upper abdomen 1 Occurrences starting 08/28/2022 until 09/27/2023 [facility] Work Phone: Comment on above: 1 Occurrences starting 08/28/2022 until 09/27/2023 End: 10-16-2023 Ct abdomen & pelvis w/contrast material CT ABD/PEL W IVCON Radiology Routine Abnormal CT of the abdomen Liver 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 1 Occurrences starting 09/16/2022 until 10/16/2023 [facility] Work Phone: Comment on above: 1 Occurrences starting 09/16/2022 until 10/16/2023 End: 08-10-2025 CT Adrenal gland WO and W contrast IV CT ADRENAL WO/W IVCON Radiology Routine 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) 1 Occurrences starting 07/11/2024 until 08/10/2025 [facility] Work Phone: Comment on above: 1 Occurrences starting 07/11/2024 until 08/10/2025 End: 09-27-2023 CT CHEST W IVCON CT CHEST W IVCON Radiology Routine Breast neoplasm, Tis (DCIS), left Nausea Pain of upper abdomen 1 Occurrences starting 08/28/2022 until 09/27/2023 [facility] Work Phone: Comment on above: 1 Occurrences starting 08/28/2022 until 09/27/2023 Cystourethroscopy CYSTO.PANENDO Procedures Routine Urinary incontinence, mixed Microscopic hematuria Ordered: 08/04/2024 [facility] Work Phone: Comment on above: Ordered: 08/04/2024 End: 10-16-2023 Diagnostic mammography computer-aided detcj uni GUILLERMINA DIAGNOSTIC LT Radiology Routine Ductal carcinoma in situ (DCIS) of left breast Abnormal CT of the chest 1 Occurrences starting 09/16/2022 until 10/16/2023 [facility] Work Phone: Comment on above: 1 Occurrences starting 09/16/2022 until 10/16/2023 End: 05-09-2026 DXA Skeletal system.axial Views for bone density DXA-AXIAL SKELETON Radiology Routine Long-term current use of tamoxifen Encounter for screening for osteoporosis Asymptomatic postmenopausal status 1 Occurrences starting 04/09/2025 until 05/09/2026 [facility] Work Phone: Comment on above: 1 Occurrences starting 04/09/2025 until 05/09/2026 Glutamate decarboxyl ase 65 Ab [Units/volume] in Serum GLUTAMIC AC DECARBOXYLASE AB Lab Routine Hyperglycemia Pancreatic insufficiency 01/18/2024 2:48 PM EDT [facility] Work Phone: Helicobacter pylori [Quantitative] in Stomach by urea breath test BREATH TEST H PYLORI Lab Routine Epigastric pain 09/08/2022 9:24 AM EDT [facility] Work Phone: Lipase measurement [facility] End: 03-27-2024 GUILLERMINA SCREENING W ANGELA GUILLERMINA SCREENING W ANGELA Radiology Routine Ductal carcinoma in situ (DCIS) of left breast Encounter for screening mammogram for high-risk patient 1 Occurrences starting 02/26/2023 until 03/27/2024 [facility] Work Phone: Comment on above: 1 Occurrences starting 02/26/2023 until 03/27/2024 Microscopic observat ion [Identifier] in Vaginal fluid by Gram stain BACT/CHINO VAG GRAM STAIN Microbiology Routine Vaginal discharge Vulvovaginal discomfort 07/23/2023 11:49 AM EDT [facility] Work Phone: Patient Education [facility] Work Phone[facility] End: 09-27-2023 Screening mammography bi 2-view breast inc cad GUILLERMINA SCREENING Radiology Routine Breast neoplasm, Tis (DCIS), left Encounter for screening mammogram for high-risk patient 1 Occurrences starting 08/28/2022 until 09/27/2023 [facility] Work Phone: Comment on above: 1 Occurrences starting 08/28/2022 until 09/27/2023 URINE FREE CORTISOL BY LC-MS/MS URINE FREE CORTISOL BY LC-MS/MS Lab Routine Adenoma of right adrenal gland Ordered: 11/03/2024 [facility] Work Phone: Comment on above: Ordered: 11/03/2024 End: 10-03-2023 Us abdominal real time w/image limited US ABD RT UPPER QUADRANT Radiology Routine Epigastric pain 1 Occurrences starting 09/03/2022 until 10/03/2023 [facility] Work Phone: Comment on above: 1 Occurrences starting 09/03/2022 until 10/03/2023 End: 10-16-2023 Us breast uni real time with image limited US BREAST LTD LT Radiology Routine Ductal carcinoma in situ (DCIS) of left breast Abnormal CT of the chest 1 Occurrences starting 09/16/2022 until 10/16/2023 [facility] Work Phone: Comment on above: 1 Occurrences starting 09/16/2022 until 10/16/2023 [facility] Immunizations Immunization Date Immunization Notes Care Provider Fa thania 04-22-2024 tetanus toxoid, redu andres diphtheria toxoid, and acellular pertussis vaccine, adsorbed Cherise MAYS-C Work Phone: [facility] 12-09-2023 respiratory syncytia l virus (RSV) vaccine, adjuvanted (AREXVY) Cherise MAYS-C Work Phone: [facility] 10-26-2023 influenza (HD-IIV4) vaccine, age 65+ yr, high dose, quadrivalent, PF (FLUZONE HIGH-DOSE) Clifton Hung MD Work Phone: [facility] 10-26-2023 influenza virus vacc ine, unspecified formulation Ori Kenyon Quanugkelby Work Phone: [facility] 10-05-2022 pneumococcal polysaccharide vaccine, 23 valent Cherise MAYS-C Work Phone: [facility] 09-18-2022 COVID-19 booster vaccine, age 12+ yr, bivalent (MODERNA) Cherise MAYS-C Work Phone: [facility] 09-03-2022 influenza, high-dose , quadrivalent vaccine (FLUZONE HIGH DOSE QUADRIVALENT) Clifton Hung MD Work Phone: [facility] 09-01-2021 influenza, injectabl e, quadrivalent, contains preservative Cherise MAYS-C Work Phone: [facility] 12-20-2020 COVID-19 vaccine, fu ll dose (MODERNA) Cherise MAYS-C Work Phone: [facility] 11-19-2020 COVID-19 vaccine, fu ll dose (MODERNA) Cherise MAYS-C Work Phone: [facility] 10-12-2020 zoster vaccine recombinant Cherise MAYS-C Work Phone: [facility] 05-12-2020 zoster vaccine recombinant Cherise Sifuentes PA-C Work Phone: [facility] 04-12-2020 zoster vaccine recombinant Cherise Sifuentes PA-C Work Phone: [facility] 11-19-2019 COVID-19 vaccine, fu ll dose (MODERNA) Cherise Sifuentes PA-C Work Phone: [facility] 09-07-2017 influenza, seasonal, injectable Cherise RODRIGUEZC Work Phone: [facility] 06-28-2017 pneumococcal polysaccharide vaccine, 23 valent Cherise Sifuentes PA-C Work Phone: [facility] 10-05-2016 influenza, injectabl e, quadrivalent, preservative free Dr. Clifton Hung Work Phone: [facility] 10-05-2016 influenza, seasonal, injectable Dr. Clifton Hung Work Phone: [facility] 09-04-2016 influenza, seasonal, injectable Cherise MAYS-C Work Phone: [facility] 01-16-2016 pneumococcal conjuga te vaccine, 13 valent Cherise MAYS-C Work Phone: [facility] Work Phone: 09-19-2014 influenza, seasonal, injectable Cherise MAYS-C Work Phone: [facility] 02-23-2014 tetanus toxoid, redu andres diphtheria toxoid, and acellular pertussis vaccine, adsorbed Cherise MAYS-C Work Phone: [facility] 10-20-2013 influenza virus vacc ine, unspecified formulation Cherise MAYS-C Work Phone: [facility] 08-08-2009 pneumococcal polysaccharide vaccine, 23 valent Cherise MAYS-C Work Phone: [facility] Work Phone: Payers Date Payer Category Payer Self-pay [id number] 2022 Medicare HUMANA MEDICARE HUMANA MEDICARE PPO [id number] 2022-[facility] [phone] [place] [address] PPO [id number] 2022 Medicare (Managed Care) POLO LO [id number] 2022 Medicare [id number] 2013 Unknown [id number] 2009 Unknown [employer] BLUE CARD PPO OOS [id number] 2009-Present [phone] [address] [place] [address] PPO [id number] 2009 Unknown [employer] BLUE CARD PPO OOS [id number] 2009-Present [phone] [place] [id number] PPO [id number] 1957 Unknown [id number] Medicare MEDICARE PART A B [id number] Unknown [id number] Unknown [id number] Unknown [id number] Unknown [id number] Unknown [id number] Unknown [id number] Unknown [id number] Unknown [id number] Unknown [id number] Unknown [id number] Unknown [id number] Unknown [id number] Unknown [id number] Unknown [id number] Social History Date Type Detail Facility Start: 07-21-2013 End: 07-04-2024 Tobacco smoking status NHIS Ex-smoker [facility] Start: 11-08-1991 End: 11-08-1994 History of tobacco use Current smoker [facility] Start: 11-08-1991 End: 11-08-1994 History of tobacco use Cigarette Smoker [facility] Start: 07-21-2013 End: 04-08-2023 Cigarettes smoked current (pack per day) - Reported 1.5 [facility] Start: 07-21-2013 End: 07-04-2024 Tobacco use and exposure Smokeless tobacco non-user [facility] Start: 10-22-2021 End: 04-19-2025 Alcohol intake Current non-drinker of alcohol (finding) [facility] Start: 09-25-2020 End: 09-29-2022 History SDOH Alcohol Frequency 1 [facility] Start: 09-25-2020 History SDOH Alcohol Std Drinks 98 [facility] Start: 05-20-2020 End: 09-25-2020 History SDOH Social Connections Phone 4 [facility] Start: 04-08-2020 End: 09-29-2022 History SDOH Social Connections Get Together 2 [facility] Start: 04-08-2020 End: 09-29-2022 History SDOH Social Connections Mu-Ism 3 [facility] Start: 04-08-2020 End: 09-29-2022 History SDOH Physical Activity DPW 0 [facility] Start: 04-07-2020 Education 21 [facility] Start: 07-21-2013 End: 06-30-2022 Tobacco Comment smoked 3 years in mid 90s [facility] Start: 1955 Sex Assigned At Female C [facility] Start: 02-13-2022 End: 10-05-2022 Exposure to SARS-CoV-2 (event) Not sure [facility] Start: 05-28-2022 End: 12-28-2023 Tobacco smoking status NHIS Unknown if ever smoked [facility] Start: 06-30-2017 None [facility] Start: 01-04-2017 Spouse/ Signif icant Other [facility] Start: 03-31-2021 Non-smoker [facility] Start: 09-29-2022 History SDOH Financial 5 [facility] Start: 09-28-2022 End: 04-08-2023 Social connection and isolation panel [facility] Do you belong to any clubs or organizations such as taoism groups, unions, fraternal or athletic groups, or school groups? Yes [facility] Are you now , , , , never or living with a partner? [facility] How often to you hav e a drink containing alcohol? Never [facility] How many standard drinks containing alcohol do you have on a typical day? Patient does not drink [facility] Do you feel stress - tense, restless, nervous, or anxious, or unable to sleep at night because your mind is troubled all the time - these days [OSQ] Not at all [facility] (I/We) worried wheth er (my/our) food would run out before (I/we) got money to buy more. Never true [facility] In the past 12 month s, was there a time when you were not able to pay the mortgage or rent on time? No [facility] Start: 01-16-2019 Gender identity Identifies as female gender (finding) [facility] Start: 01-16-2019 Sexual orientation Heterosexual (vu lo) [facility] How hard is it for y ou to pay for the very basics like food, housing, medical care, and heating Not very hard [facility] Do you feel stress - tense, restless, nervous, or anxious, or unable to sleep at night because your mind is troubled all the time - these days [OSQ] To some extent [facility] NEGATED: Highlighted row [facility] Goals Date Patient Goal Desired Activity /State Functional Status Date Assessment Result Facility 04-18-2025 Total score [AUDIT-C] 0 04/18/20 25 10:17 AM EDT UserJose [facility] 04-18-2025 How often to you hav e a drink containing alcohol? Never 04/18/2025 10:17 AM EDT User, [email or web address] Never [facility] 04-18-2025 Functional status Patient does n ot drink 04/18/2025 10:17 AM EDT UserJose Patient does not drink [facility] 04-18-2025 How often do you hav e 6 or more drinks on 1 occasion? Never 04/18/2025 10:17 AM EDT UserJose Never [facility] 03-08-2015 Are you deaf, or do you have serious difficulty hearing No 03/08/2015 11:23 AM Apurva Lu Cma No [facility] 03-08-2015 Are you blind, or do you have serious difficulty seeing, even when wearing glasses No 03/08/2015 11:23 AM Apurva Lu Cma No [facility] 03-08-2015 Do you have serious difficulty walking or climbing stairs No 03/08/2015 11:23 AM Apurva Lu Cma No [facility] 03-08-2015 Do you have difficul ty dressing or bathing No 03/08/2015 11:23 AM Apurva Lu Cma No [facility] 03-08-2015 Because of a physica l, mental, or emotional condition, do you have difficulty doing errands alone such as visiting a physician's office or shopping No 03/08/2015 11:23 AM EDApurva Gracia Cma No [facility] Mental Status Date Assessment Result Facility 12-28-2023 Cognitive function Level Of Cons ciousness Awake;Alert;Appropriate [facility] Work Phone: 12-22-2023 Cognitive function Level Of Cons ciousness Awake;Alert;Appropriate;Fol lows Commands [facility] Work Phone: 09-11-2023 Cognitive function Level Of Cons ciousness Awake;Alert;Appropriate;Fol lows Commands [facility] Work Phone: 12-01-2022 Cognitive function Voice/Name [facility] Work Phone: 03-08-2015 Because of a physica l, mental, or emotional condition, do you have serious difficulty concentrating, remembering, or making decisions No 03/08/2015 11:23 AM Apurva Lu Cma No [facility] Clinical Notes 12-09-2016 to 05-17-2025 Neil Chacko CPhT - 05/17/2025 7:52 AM REYNALDOTPNicole ritter CPhT - 05/14/2025 11:06 AM EDTTelephone Encounter - Ori Moody MA - 04/26/2025 1:59 PM EDTPatient InstructionsPatient Instructions Note Date & Type Note Facility 05-17-2025 Note HNO ID: [id number] Author: NEIL CHACKO CPhT Service: ? Author Type: Instrumentation Instructor Type: Progress Notes Filed: 05/17/2025 07:54 Note Text: Patient is identified through a medication adherence outreach initiative based on pharmacy claims data from: [employer] Medication Adherence Category: Diabetes Second Attempt Medication(s) pioglitazone 15 mg due 04/01/25, filled 01/02/25 for 90 days Medication Status per portal/Epic Reconcile Dispense: Not filled Medication Status per Profile Review: No issues per profile review Patient identified by name and Outreach to patient: Sent/Responded to [employer] What was primary intervention? LVM on 05/14/25, sent [employer] message Neil Chacko CPhT Value Based Care Pharmacy Team [facility] 05-17-2025 History of Present illness Narrative Patient is identified through a medication adherence outreach initiative based on pharmacy claims data from: [employer] Medication Adherence Category: Diabetes Second Attempt Medication(s) pioglitazone 15 mg due 04/01/25, filled 01/02/25 for 90 days Medication Status per portal/Epic Reconcile Dispense: Not filled Medication Status per Profile Review: No issues per profile review Patient identified by name and Outreach to patient: Sent/Responded to [employer] What was primary intervention? LVM on 05/14/25, sent [employer] message Neil Chacko CPhT [facility] Based Care Pharmacy Team documented in this encounter [facility] 05-17-2025 Note Patient Outreach ( POJOHN) ---- DOM AVILA ([id number]) 1955 F Date Time Provider Department 05/17/25 CLIFTON HUNG During your visit today, we recorded the following information about you: Neil Chacko CPhT 05/17/2025 7:54 AM Signed Patient is identified through a medication adherence outreach initiative based on pharmacy claims data from: [employer] Medication Adherence Category: Diabetes Second Attempt Medication(s) pioglitazone 15 mg due 04/01/25, filled 01/02/25 for 90 days Medication Status per portal/Epic Reconcile Dispense: Not filled Medication Status per Profile Review: No issues per profile review Patient identified by name and Outreach to patient: Sent/Responded to [employer] What was primary intervention? LVM on 05/14/25, sent [employer] message Neil Chacko CPhT Value Based Care [...] 100 mg by mouth once daily. - mtombq-vmlhueps-xjjspob (CREON 36) 36,000-114,000- 180,000 unit delayed release [...] 2 diabetes mellitus without com*10/22/2016 Atherosclerosis of mohegan coronary artery with *01/09/2017 S/P angioplasty with [...] office [Z78.*04/08/2023 Advanc (more content not included)... [facility] 05-14-2025 Note HNO ID: [id number] Author: NICOLE SEXTON CPhT Service: ? Author Type: Instrumentation Instructor Type: Progress Notes Filed: 05/14/2025 11:18 Note Text: Patient is identified through a medication adherence outreach initiative based on pharmacy claims data from: [employer] Medication Adherence Category: Diabetes First Review Attribution [...] Sexton CPhT Value Based Care Pharmacy Team [facility] 05-14-2025 History of Present illness Narrative Patient is identified through a medication adherence outreach initiative based on pharmacy claims data from: [employer] Medication Adherence Category: Diabetes First Review Attribution [...] Care Pharmacy Team documented in this encounter [facility] 05-14-2025 Note Patient Outreach ( POHE) ---- AUSTINDOM Vel ([id number]) 1955 F Date Time Provider Department 05/14/25 CLIFTON HUNG During your visit today, we recorded the following information about you: Nicole Sexton CPhT 05/14/2025 11:18 AM Signed Patient is identified through a medication adherence outreach initiative based on pharmacy claims data from: [employer] Medication Adherence Category: Diabetes First Review Attribution [...] 100 mg by mouth once daily. - dmjnht-lpemkisj-fwvmxci (CREON 36) 36,000-114,000- 180,000 unit delayed release [...] 2 diabetes mellitus without com*10/22/2016 Atherosclerosis of mohegan coronary artery with *01/09/2017 S/P angioplasty with [...] file at physician's (more content not included)... [facility] 04-26-2025 Telephone encounter Note Pt notified and verbalized understanding Ori Moody MA [facility] 04-26-2025 Miscellaneous Notes Pt notified and verbalized understanding Ori Moody MA Please let patient know her culture is positive for bacterial growth and she should continue current antibiotics. documented in this encounter [facility] 04-26-2025 Telephone encounter Note Please let patient know her culture is positive for bacterial growth and she should continue current antibiotics. [facility] 04-24-2025 Note HNO ID: [id number] Author: FRANCINE MADRID APRN.CNP Service: ? 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 Hysterectomy at age 41 Uterine polyp No longer an issue Vitamin D deficiency 2012 Well adult exam 01/16/2016 Last done: 09/08/2018 Previous Surgical History PAST SURGICAL HISTORY Procedure Laterality Date 2D ECHO (EXEP) 06/30/2017 EF=65%, trivial CO, TI and 1+ PI Unchanged from 04/2017 2D ECHO (EXEP) 05/14/2021 EF=60%, 1+ TI, trival CO, AI, PI 2D ECHO (EXEP) 09/16/2021 EF=60%, [...] cancer) Mother Coronary Artery Disease Father 25 CO @ 25. CABG Diabetes Father Diabetes Paternal Grandmother Diabetes Maternal Grandfather other (Lung cancer) Brother other (suicide) Son may of been depression Patient Allergies ALLERGIES Allergen Reactions (more content not included)... [facility] 04-24-2025 History of Present illness Narrative Chief [...] disturbance 06/2017 Arthritis tendonitis, arthritis 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 01/09/2017 [...] [place] Type 2 diabetes mellitus with hyperlipidemia ([facility]) 04/17/2024 Uterine fibroid 1994? Hysterectomy at age 41 Uterine polyp No longer an issue Vitamin D deficiency 2012 Well adult exam 01/16/2016 Last done: 09/08/2018 Previous Surgical History PAST SURGICAL HISTORY Procedure Laterality Date 2D ECHO (EXEP) 06/30/2017 EF=65%, trivial CO, TI and 1+ PI Unchanged from 04/2017 2D ECHO (EXEP) 05/14/2021 EF=60%, 1+ TI, trival CO, AI, PI 2D ECHO (EXEP) 09/16/2021 EF=60%, [...] cancer) Mother Coronary Artery Disease Father 25 CO @ 25. CABG Diabetes Father Diabetes Paternal Grandmother Diabetes Maternal Grandfather other (Lung cancer) Brother other (suicide) Son may of been depression Patient Allergies ALLERGIES Allergen Reactions Brilinta [Ticagrelo* Shortness of Breath Crestor [Rosuvastat* Myalgia Keflex [Cephalexin] Other: See Comments facial flushing Lipitor [Atorvastat* Other: See Comments myalgia Lovastatin Other: See Comments myalgia [place] [Hydrocodone-* Itching Current Medications Current Outpatient Medications [...] Take 100 mg by mouth once daily. xskatj-wqdcsakl-bblcccp (CREON 36) 36,000-114,000- 180,000 unit delayed release [...] MACROCRYSTAL 100 MG ORAL CAP Francine Madrid APRN.GYMNASIUM TEACHER documented in this encounter [facility] 04-19-2025 Instructions Cherise Sifuentes PA-C - 04/19/2025 [...] review all the medicines you take, even mqta-bvv-rhswzex medicines. As you get older, the way [...] certain medical conditions. documented in this encounter [facility] 04-19-2025 Note HNO ID: [id number] Author: CHERISE SIFUENTES PA-C Service: ? Author Type: Physician President/Gm Production & Live Experiences Type: Progress Notes Filed: 04/19/2025 11:27 Note [...] disturbance 06/2017 Arthritis tendonitis, arthritis 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 Hysterectomy at age 41 Uterine polyp No longer an issue Vitamin D deficiency 2013 Well adult exam 01/16/2016 Last done: 09/08/2018 Previous (more content not included)... [facility] 04-19-2025 History of Present illness Narrative Dom [...] disturbance 06/2017 Arthritis tendonitis, arthritis 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 01/09/2017 [...] hyperlipidemia 05/31/2009 statin intolerance Narcolepsy without cataplexy ([facility]) 01/16/2016 Especially with long drives. Has been on provigil for 5-10 yrs Obstructive sleep apnea on CPAP Sibilia Other skin changes 09/26/2021 Seeing derm Pancreatic insufficiency ([facility]) 04/08/[address] Alcantar Psoriasis RLS (restless legs syndrome) 02/22/[address] Aysha Laurent with ocular symptoms S/P angioplasty with stent 01/09/2017 stents to mid and proximal left anterior descending Art, and angio of ostium of #2 diagonal Scalp itch Seasonal allergies Dr [place] Type 2 diabetes mellitus with hyperlipidemia ([facility]) 04/17/2024 Uterine fibroid 1994? Hysterectomy at age 41 Uterine polyp No longer an issue Vitamin D deficiency 2012 Well adult exam 01/16/2016 Last done: 09/08/2018 Previous Surgical History PAST SURGICAL HISTORY Procedure Laterality Date 2D ECHO (EXEP) 06/30/2017 EF=65%, trivial CO, TI and 1+ PI Unchanged from 04/2017 2D ECHO (EXEP) 05/14/2021 EF=60%, 1+ TI, trival CO, AI, PI 2D ECHO (EXEP) 09/16/2021 EF=60%, [...] cancer) Mother Coronary Artery Disease Father 25 CO @ 25. CABG Diabetes Father Diabetes Paternal Grandmother Diabetes Maternal Grandfather other (Lung cancer) Brother other (suicide) Son may of been depression Patient Allergies ALLERGIES Allergen Reactions Brilinta [Ticagrelo* Shortness of Breath Crestor [Rosuvastat* Myalgia Keflex [Cephalexin] Other: See Comments facial flushing Lipitor [Atorvastat* Other: See Comments myalgia Lovastatin Other: See Comments myalgia [place] [Hydrocodone-* Itching Current Medications Current Outpatient Medications [...] Take 100 mg by mouth once daily. dmrcvo-ugluzemj-hocoiwn (CREON 36) 36,000-114,000- 180,000 unit delayed release [...] Abs Lymph 1.00 - 4.00 k/uL 2.26 Hubbard% % 8.5 Abs Hubbard <0.87 k/uL 0.73 Eosin% % 1.4 Abs Eosin <0.46 k/uL 0.12 Baso% % 0.3 Abs Baso <0.11 k/uL 0.03 Immature Gran % % 0.3 IMMATURE GRANS (ABS) <0.10 k/uL 0.03 NRBC /100 WBC 0.0 Absolute nRBC <0.01 k/uL <0.01 DTYPE Auto Color Yellow Yellow Clarity Clear Clear Glucose, Urine Negative Negative Bilirubin, Urine Negative Negative Ketones, Urine Negative Negative Specific [place], Ur 1.005 - 1.030 1.014 Hemoglobin/Blood,Ur Negative [...] G25.81 No new concerns 11. 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 - ICD9: [...] making components. I have reviewed the Physician President/Gm Production & Live Experiences (PA) student's documentation and verified the findings in the note as written. Any additions or changes are noted in bold/italics. Cherise Sifuentes PA-C I spent a total of 40 minutes on the date of the service which included preparing to see the patient, epko-yk-gzin patient care, completing clinical documentation, obtaining and/or reviewing separately obtained history, performing a medically appropriate examination, counseling and educating the patient/family/caregiver, ordering medications, tests, or procedures, communicating with other HCPs (not separately reported), and communicating results to the patient/family/caregiver. documented in this encounter [facility] 04-12-2025 Note HNO ID: [id number] Author: ?, ?, ? Service: ? Author [...] Caro Cassidy April 12, 2025 9:35 AM [facility] 04-12-2025 History of Present illness Narrative POPULATION [...] 2025 9:35 AM documented in this encounter [facility] 04-12-2025 Note Patient Outreach (NE TNAV) ---- DOM AVILA ([id number]) 1955 F Date Time Provider Department 04/12/25 [...] Date Reviewed: 04/09/2025 Reviewed by: Sima Dumont APRN.GYMNASIUM TEACHER - Fully Assessed Reason for Visit: Population [...] 100 mg by mouth once daily. - nvxsoo-itbdtyux-oyjzfdw (CREON 36) 36,000-114,000- 180,000 unit delayed release [...] 2 diabetes mellitus without com*10/22/2016 Atherosclerosis of mohegan coronary artery with *01/09/2017 S/P angioplasty with [...] Medication management [Z79.899] (more content not included)... [facility] 04-09-2025 Instructions Sima Dumont APRN.ELIZABETH - 04/09/2025 [...] usual activities immediately. documented in this encounter [facility] 04-09-2025 Note HNO ID: [id number] Author: SIMA DUMONT APRN.GYMNASIUM TEACHER Service: ? Author Type: Nurse Practitioner Type: Progress Notes Filed: 04/09/2025 09:59 Note Text: Target Network Analyst offered: Patient declines. Dom is a 69 year old who presents for an annual gynecologic exam without complaints. Nodule on adrenal gland - seeing shuttle hand. 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 Hysterectomy at age 41 Uterine polyp No longer an issue Vitamin D deficiency 2012 Well adult exam 01/16/2016 Last done: 09/08/2018 PAST SURGICAL HISTORY Procedure Laterality Date 2D ECHO (EXEP) 06/30/2017 EF=65%, trivial CO, TI and 1+ PI Unchanged from 04/2017 2D ECHO (EXEP) 05/14/2021 EF=60%, 1+ TI, trival CO, AI, PI 2D ECHO (EXEP) 09/16/2021 EF=60%, [...] tunnel PAST SURGICAL (more content not included)... [facility] 04-09-2025 History of Present illness Narrative Target Network Analyst offered: Patient declines. Raza is a 69 year old who presents for an annual gynecologic exam without complaints. Nodule on adrenal gland - seeing shuttle hand. 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 Has been on provigil for 5-10 yrs Obstructive sleep apnea on CPAP Sibilia Other skin changes 09/26/2021 Seeing derm Pancreatic insufficiency ([facility]) 04/08/[address] Ortiz [place] RLS (restless legs syndrome) 02/22/[address] Aysha Laurent with ocular symptoms S/P angioplasty with stent 01/09/2017 stents to mid and proximal left anterior descending Art, and angio of ostium of #2 diagonal Scalp itch Seasonal allergies Dr [place] Type 2 diabetes mellitus with hyperlipidemia ([facility]) 04/17/2024 Uterine fibroid 1994? Hysterectomy at age 41 Uterine polyp No longer an issue Vitamin D deficiency 2013 Well adult exam 01/16/2016 Last done: 09/08/2018 PAST SURGICAL HISTORY Procedure Laterality Date 2D ECHO (EXEP) 06/30/2017 EF=65%, trivial CO, TI and 1+ PI Unchanged from 04/2017 2D ECHO (EXEP) 05/14/2021 EF=60%, 1+ TI, trival CO, AI, PI 2D ECHO (EXEP) 09/16/2021 EF=60%, [...] cancer) Mother Coronary Artery Disease Father 25 CO @ 25. CABG Diabetes Father Diabetes Paternal [...] discussed with the Patient or Patient's Authorized Patient Intake Coordinator. As applicable, any other physician, advance practice provider, medical student, or other health professional student that will be observing or involved in the sensitive examination for educational or training purposes was discussed with the Patient or Authorized Patient Intake Coordinator. The Patient or Authorized Patient Intake Coordinator has agreed to proceed with the sensitive [...] external genitalia normal, normal Bartholin's glands, urethra, [place]'s glands, no vulvar lesions, good vaginal support, [...] 4 - Moderate documented in this encounter [facility] 04-04-2025 Note HNO ID: [id number] Author: ROCCO RENDON RN Service: ? Author [...] Rendon RN April 04, 2025 1:25 PM [facility] 04-04-2025 History of Present illness Narrative Value [...] 2025 1:25 PM documented in this encounter [facility] 04-04-2025 Note Patient Outreach ([facility]) ---- AUSTINDOM ([id number]) 1955 F Date Time Provider Department 04/04/25 [...] Date Reviewed: 03/21/2025 Reviewed by: Chad Mariee APRN.GYMNASIUM TEACHER - Fully Assessed Reason for Visit: Pharyngitis [...] 100 mg by mouth once daily. - sqcwyd-eoualrbc-gwzpmdu (CREON 36) 36,000-114,000- 180,000 unit delayed release [...] 2 diabetes mellitus without com*10/22/2016 Atherosclerosis of mohegan coronary artery with *01/09/2017 S/P angioplasty with [...] reflux disease withou (more content not included)... [facility] 03-21-2025 Note HNO ID: [id number] Author: CHAD MARIEE APRN.GYMNASIUM TEACHER Service: ? Author Type: Nurse Practitioner Type: Progress Notes Filed: 03/22/2025 13:28 Note Text: Chief Complaint Patient presents with: Established Patient HPI: Dmo Avila is a 69 year old female who presents here today for follow up DCIS. Per Dr. Georges previous note: H/o qsz-uebujdn-fwfaagjaj diabetes mellitus, hypertension, ASCAD, and TIA who [...] breast lumpectomy for DCIS on 04/08/2021 at [facility] Pathology (from [facility]) reveals - ductal carcinoma in situ...,size of DCIS - 1.0 x 0.4 cm...,architectural type - cribriform..., nuclear grade 1-2..., necrosis - present central (expansive comedo necrosis)..., biopsy cavity is 0.5 cm from closest anterior margin (which is skin)..., ER >95%, RI >95% Postoperative course is unremarkable with no [...] Skin:denies rashes/lesions Heme:denies bleeding, over due for [facility]ASS RECLAIMER exam The ROS is otherwise negative. Past [...] March 2026. - Continue follow up with PCP/GI/Cards/[facility] RECLAIM[facility]. - Needs follow up/yearly pelvic with [facility]-Marck Dumont CNP. - Follow up in 6 months. - Pt. aware to call office with any questions/concerns. The patient indicates understanding of these issues and agrees with the plan. All documentation from previous visit of 09/14/24-Dr. Georges/myself was copied and pasted, documentation has been reviewed and edited as necessary for today's visit. Chad Mariee APRN.GYMNASIUM TEACHER [facility] 03-21-2025 History of Present illness Narrative Chief Complaint Patient presents with: Established Patient HPI: Dom Avila is a 69 year old female who presents here today for follow up DCIS. Per Dr. Georges previous note: H/o rju-ctaohbt-ugaidjsqs diabetes mellitus, hypertension, ASCAD, and TIA who [...] breast lumpectomy for DCIS on 04/08/2021 at [facility] Pathology (from [facility]) reveals - ductal carcinoma in situ...,size of DCIS - 1.0 x 0.4 cm...,architectural type - cribriform..., nuclear grade 1-2..., necrosis - present central (expansive comedo necrosis)..., biopsy cavity is 0.5 cm from closest anterior margin (which is skin)..., ER >95%, RI >95% Postoperative course is unremarkable with no [...] Skin:denies rashes/lesions Heme:denies bleeding, over due for [facility] RECLAIMER exam The ROS is otherwise negative. Past [...] March 2026. - Continue follow up with PCP/GI/Cards/[facility] RECLAIM[facility]. - Needs follow up/yearly pelvic with [facility] RE[facility]-Marck Dumont CNP. - Follow up in 6 months. - Pt. aware to call office with any questions/concerns. The patient indicates understanding of these issues and agrees with the plan. All documentation from previous visit of 09/14/24-Dr. Georges/myself was copied and pasted, documentation has been reviewed and edited as necessary for today's visit. Chad Mariee APRN.ELIZABETH documented in this encounter [facility] 03-16-2025 Instructions Alexa Matute MD - 03/16/2025 8:49 AM EDT Please do CT adrenal in one year from now. Hold metformin for 2 days before the imaging scan We shall also do lab work next year February 2026 documented in this encounter [facility] 03-16-2025 Note HNO ID: [id number] Author: ALEXA MATUTE MD Service: ? 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 Has been on provigil for 5-10 yrs Obstructive sleep apnea on CPAP Sibilia Other skin changes 09/26/2021 Seeing derm Pancreatic insufficiency ([facility]) 04/08/[address] Ortiz [place] RLS (restless legs syndrome) 02/22/[address] Aysha Laurent with ocular symptoms S/P angioplasty with stent 01/09/2017 stents to mid and proximal left anterior descending Art, and angio of ostium of #2 diagonal Scalp itch Seasonal allergies Dr [place] Type 2 diabetes mellitus with hyperlipidemia ([facility]) 04/17/2024 Vitamin D deficiency 2013 Well adult exam 01/16/2016 Last done: 09/08/2018 Surgical History: PAST SURGICAL HISTORY Procedure Laterality Date 2D ECHO (EXEP) 06/30/2017 EF=65%, trivial CO, TI and 1+ PI Unchanged from 04/2017 2D ECHO (EXEP) 05/14/2021 EF=60%, 1+ TI, trival CO, AI, PI 2D ECHO (EXEP) 09/16/2021 EF=60%, [...] 04/08/2021 PAST HERNANDEZ (more content not included)... 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 CABG Diabetes Father Diabetes Paternal [...] Comments myalgia Lovastatin Other: See Comments myalgia [place] [Hydrocodone-* Itching Current medications: Current Outpatient Medications [...] Take 100 mg by mouth once daily. itsfkz-ohoddwcx-royhgwr (CREON 36) 36,000-114,000- 180,000 unit delayed release [...] 500 - 1400 mg/d 800 Cortisol ug/g Collection Technician, Ur (UFRCRT) ug/g STOCK ROLLER 16.32 Free Cortisol ug/L, Urine ug/L 6.69 [...] Tissues: No significant finding. Lower thorax: Unremarkable. Dining Services Director (topogram) images: No additional findings. IMPRESSION: Stable [...] Lower thorax and bones: No significant findings. Dining Services Director (topogram) images: No additional findings. IMPRESSION: 1. [...] SERVICE: 8.40 AM documented in this encounter [facility] 03-14-2025 Note HNO ID: [id number] Author: ?, ?, ? Service: ? Author [...] Alonzostef Cassidy March 14, 2025 11:09 AM [facility] 03-14-2025 History of Present illness Narrative Radiology [...] PATIENT PRESENTS WITH AN IMPLANTABLE OR ATTACHED CHAPLAIN RESIDENT: No RADIOLOGY DEPARTMENT: Mammography PERIPHERAL IV DATA: Not applicable SIGNED BY: Brandon Snow March 14, 2025 7:56 AM documented in this encounter [facility] 03-14-2025 Note HNO ID: [id number] Author: DEBBY LIN Mammo Tech Service: ? Author Type: Retail Warehouse Associate Type: Progress Notes Filed: 03/14/2025 07:56 Note [...] PATIENT PRESENTS WITH AN IMPLANTABLE OR ATTACHED CHAPLAIN RESIDENT: No RADIOLOGY DEPARTMENT: Mammography PERIPHERAL IV DATA: Not applicable SIGNED BY: Debby Lin [employer] March 14, 2025 7:56 AM [facility] 03-13-2025 Note HNO ID: [id number] Author: ?, ?, ? Service: ? Author [...] Caro Cassidy March 13, 2025 9:16 AM [facility] 03-13-2025 History of Present illness Narrative POPULATION [...] 2025 9:16 AM documented in this encounter [facility] 03-13-2025 Note Patient Outreach (DOMINGO TNAV) ---- DOM AVILA ([id number]) 1955 F Date Time Provider Department 03/13/25 [...] MG DAILY August 23, 2019 3:27pm - xztukf-atsieqsj-foisgwh (CREON 36) 36,000-114,000- 180,000 unit delayed release [...] 2 diabetes mellitus without com*10/22/2016 Atherosclerosis of mohegan coronary artery with *01/09/2017 S/P angioplasty with stent [Z95.820] 01/09/2017 Meniere disease, right [H81.01] 10/29/2017 Histor (more content not included)... [facility] 02-19-2025 Instructions Ori Lord DO - 02/19/2025 9:06 AM EDT We discussed your adrenal nodule: - You are undergoing further testing, including the dexamethasone suppression test, which you are starting today. - Your next appointment with the shuttle hand is scheduled for March 16. Please continue [...] - Continue to follow up with your shuttle hand as planned. If you have any new or worsening symptoms, please contact our office. documented in this encounter [facility] 02-19-2025 History of Present illness Narrative Images from the original note were not included. [facility] ESTABLISHED PATIENT NOTE/HISTORY AND PHYSICAL PATIENT: Dmo Vel Avila (69 year old) PCP: Clifton Hung MD DATE OF SERVICE: 02/19/2025 SUBJECTIVE: CHIEF COMPLAINT: Follow Up (6 mo f/u. Patient has no new complaints and denies any urinary issues. ) HISTORY OF PRESENT ILLNESS: Recording using [employer] software for draft documentation of the visit was discussed with the patient/authorized pharmacy services representative; all questions welcomed and answered. Patient/authorized pharmacy services representative agreed to proceed The patient was [...] scheduled and a follow-up appointment with her shuttle hand on March 16. 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..] for: Cr, UCx, CT , note from Touch Up Edger As background copied from prior notes, changes [...] may be inappropriate. documented in this encounter [facility] 02-19-2025 Note HNO ID: [id number] Author: ORI LORD DO Service: ? Author Type: Physician Type: Progress Notes Filed: 02/19/2025 09:18 Note Text: [facility] ESTABLISHED PATIENT NOTE/HISTORY AND PHYSICAL PATIENT: Dom Avila (69 year old) PCP: Clifton Hung MD DATE OF SERVICE: 02/19/2025 SUBJECTIVE: CHIEF COMPLAINT: Follow Up (6 mo f/u. Patient has no new complaints and denies any urinary issues. ) HISTORY OF PRESENT ILLNESS: Recording using [employer] software for draft documentation of the visit was discussed with the patient/authorized pharmacy services representative; all questions welcomed and answered. Patient/authorized pharmacy services representative agreed to proceed The patient was [...] scheduled and a follow-up appointment with her shuttle hand on March 16. 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), Cataract, Colon polyp (2011), Controlled type 2 diabetes mellitus without complication, without long-term current use of insulin ([facility]) (10/22/2016), De Quervain's tenosynovitis, left (07/31/2019), Diabetic eye exam ([facility]) (01/16/2016), Ductal carcinoma in situ (DCIS) of [...] (10/29/2017), Mixed hyperlipidemia (05/31/2009), Narcolepsy without cataplexy ([facility]) (01/16/2016), Obstructive sleep apnea on CPAP, Other skin changes (09/26/2021), Pancreatic insufficiency ([facility]) (04/08/2023), Psoriasis, RLS (restless legs syndrome) (02/22/2023), Rosacea, S/P angioplasty with stent (01/09/2017), Scalp itch, Seasonal allergies, Type 2 diabetes mellitus with hyperlipidemia ([facility]) (04/17/2024), Vitamin D deficiency (2012), and Well [...] repair, detached reti (more content not included)... [facility] 02-16-2025 Instructions Alexa Matute MD - [...] labs are drawn documented in this encounter [facility] 02-16-2025 Note HNO ID: [id number] Author: ALEXA MATUTE MD Service: ? 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 Has been [...] [place] Type 2 diabetes mellitus with hyperlipidemia ([facility]) 04/17/2024 Vitamin D deficiency 2013 Well adult exam 01/16/2016 Last done: 09/08/2018 Surgical History: PAST SURGICAL HISTORY Procedure Laterality Date 2D ECHO (EXEP) 06/30/2017 EF=65%, trivial CO, TI and 1+ PI Unchanged from 04/2017 2D ECHO (EXEP) 05/14/2021 EF=60%, 1+ TI, trival CO, AI, PI 2D ECHO (EXEP) 09/16/2021 EF=60%, [...] cancer) Mother Coronary Artery Disease Father 25 CO @ 25. CABG Diabetes Father Diabetes Paternal [...] Comments myalgia Lovastatin Other: See Comments myalgia [place] [Hydrocodone-* Itching Current medications: Current Outpatient Medications [...] 100 MG DAILY August 23, 2019 3:27pm qplwgw-oyqljeqw-okmkjed (CREON 36) 36,000-114,000- 180,000 unit delayed release [...] 500 - 1400 mg/d 800 Cortisol ug/g Collection Technician, Ur (UFRCRT) ug/g STOCK ROLLER 16.32 Free Cortisol ug/L, Urine ug/L 6.69 [...] Tissues: No significant finding. Lower thorax: Unremarkable. Dining Services Director (topogram) images: No additional findings. IMPRESSION: Stable [...] Lower thorax and bones: No significant findings. Dining Services Director (topogram) images: No additional findings. IMPRESSION: 1. [...] SERVICE: 9:00 AM documented in this encounter [facility] 01-30-2025 History of Present illness Narrative Pt chart reviewed as part of population health initiative focused on statin use in patients with diabetes (DM) or cardiovascular disease (CVD). 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 Cataract Colon polyp 2011 Controlled type 2 diabetes mellitus without complication, without long-term current use of insulin ([facility]) 10/22/2016 De Quervain's tenosynovitis, left 07/31/2019 Diabetic eye exam ([facility]) 01/16/2016 Lat done: 12/03/2017 No retinopathy [...] [place] Type 2 diabetes mellitus with hyperlipidemia ([facility]) ([facility]) 04/17/2024 Vitamin D deficiency 2013 Well adult [...] BCACP Clinical Pharmacist documented in this encounter [facility] 01-30-2025 Note HNO ID: [id number] Author: VALARIE RUSSELL RPh Service: ? Author Type: Pharmacist Type: Progress Notes Filed: 01/30/2025 15:41 Note Text: Pt chart reviewed as part of population health initiative focused on statin use in patients with diabetes (DM) or cardiovascular disease (CVD). 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 Valarie Russell, Pharm.D, [facility] Clinical Pharmacist [facility] 01-30-2025 Note Patient Outreach (PM FBEA) ---- DOM AVILA ([id number]) 1955 F Date Time Provider Department 01/30/25 [facility] During your visit today, we recorded the following information about you: Valarie Russell [facility] 01/30/2025 3:41 PM Signed Pt chart reviewed as part of population health initiative focused on statin use in patients with diabetes (DM) or cardiovascular disease (CVD). 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 Cataract Colon polyp 2011 Controlled type 2 diabetes mellitus without complication, without long-term current use of insulin ([facility]) 10/22/2016 De Quervain's tenosynovitis, left 07/31/2019 Diabetic eye exam ([facility]) 01/16/2016 Lat done: 12/03/2017 No retinopathy [...] [place] Type 2 diabetes mellitus with hyperlipidemia ([facility]) ([facility]) 04/17/2024 Vitamin D deficiency 2013 Well adult [...] be removed for measure. Valarie Russell Pharm.D, [facility] PEORIACP Clinical Pharmacist Allergies As of Date: 01/30/2025 Noted Allergy Reaction BRILINTA (TICAGRELOR) 06/28/2017 12 - Shortness of Breath CRESTOR (ROSUVASTATIN) 04/10/2020 17 - Myalgia KEFLEX (CEPHALEXIN) 02/02/2006 14 - Other: See Comments Comments: facial flushing LIPITOR (ATORVASTATIN) 07/21/2013 14 - Other: See Comments Comments: myalgia LOVASTATIN 07/21/2013 14 - Other: See Comments Comments: myalgia NORCO (HYDROCODONE-ACETAMINOPHEN) 10/29 (more content not included)... [facility] 01-01-2025 Telephone encounter Note Nirmatrelvir/Ritonavir (Paxlovid) Considerations [...] [place] APRN.CNP January 01, 2025 11:07 AM [facility] 01-01-2025 Instructions Francine Madrid APRN.CNP - 01/01/2025 11:09 AM EST Images from the original note were not included. FACT SHEET FOR PATIENTS, PARENTS, AND CAREGIVERS EMERGENCY USE AUTHORIZATION (EUA) OF PAXLOVID FOR CORONAVIRUS DISEASE 2019 (COVID-19) You are being given this Fact Sheet because your healthcare provider believes it is necessary to provide you with PAXLOVID for the treatment of qjpe-wp-wnqveupu coronavirus disease (COVID-19) caused by the SARS-CoV-2 [...] make PAXLOVID available for the treatment of sldo-hi-sfhvbbtn COVID-19 in adults and children 12 years [...] virus. COVID-19 illnesses have ranged from very ligh-kr-mynmua, including illness resulting in . While information [...] available under EUA for the treatment of mxqt-dv-qxwyleem COVID-19 in adults and children 12 years [...] of using PAXLOVID to treat children with lqpn-qm-oqinspgd COVID-19. What is the most important information [...] the medicines you take, including prescription and ozez-tgm-rhslmwq medicines, vitamins, and herbal supplements. Your healthcare [...] morning or evening, depending on when you rock picker your prescription, or as your healthcare [...] PAXLOVID is FDA-approved for the treatment of bzow-yp-uuffgdmi COVID-19 in certain adults; however, there are not sufficient quantities of the approved presentations (i.e., dose packs) of PAXLOVID at this time. This EUA continues to authorize the emergency use of PAXLOVID for the approved patient population to ensure continued access in order to meet the public health need. VEKLURY (remdesivir) is FDA-approved for the treatment of uwzj-rb-flviqufj COVID-19 in certain adults and children. Talk with your healthcare provider to see if VEKLURY is appropriate for you. For information on the emergency use of other medicines that are authorized by FDA to treat people with COVID-19, please go to https://www.fda.gov/emergency-prepared qhuc-ubt-oujvwlsr/ebv-uevmm-sbrgvkbeme -awr-njgnhu-sexpzpsyz/jnjqyuusr-uzp-ge thorization. Your healthcare provider may talk with [...] to FDA MedWatch at www.fda.gov/medwatch or call 8-467-LFN-5204 or you can report side effects to [employer]. at the contact information provided below. How [...] bottom of blister pack at this website: [email or web address]://www.[employer]/ or talk with your healthcare provider. Information on the authorized shelf-life extensions for PAXLOVID may also be found at https://www.fda.gov/emergency-prepared gdxm-nlg-qdopipjp/skh-zihnd-dzclfttqzz -jni-fnzdcm-onjweflpz/expiration-datin g-extension. How can I learn more about COVID-19? Ask your healthcare provider. Visit https://www.cdc.gov/COVID19. Contact your local or state public health department. What is an Emergency Use Authorization (EUA)? The [place] FDA has made PAXLOVID available under an emergency access mechanism called an Emergency Use Authorization (EUA). The EUA is supported by a Gas Manager of Health and Human Services ([facility]) declaration that circumstances exist to justify the [...] call the telephone number provided below. Website: www.[employer] Telephone number: (1-877-c19-PACK) Distributed by [employer] [place] [address] [id number] Revised: 03/2023 documented in this encounter [facility] 01-01-2025 Miscellaneous Notes Nirmatrelvir/Ritonavir (Paxlovid) Considerations Paxlovid [...] risk of HIV-1 resistance development. Francine Madrid APRN.GYMNASIUM TEACHER January 01, 2025 11:07 AM Pt notified of results and provider message. Pt reports she would like a rx to be sent to [facility] in [place]. Pharmacy updated. Em Mahmood LPN Called and [...] it is needed. documented in this encounter [facility] 01-01-2025 Telephone encounter Note Pt notified of results and provider message. Pt reports she would like a rx to be sent to [facility] in [place]. Pharmacy updated. Em Mahmood LPN [facility] 01-01-2025 Telephone encounter Note Called and left message on patients voicemail to return call to the office and ask to speak with a triage nurse. Natalie Presley MA [facility] 01-01-2025 Telephone encounter Note Please let patient know she has Covid. She is still in the window for treatment if she would like it but if she has mild symptoms and no shortness of breath I do not think it is needed. [facility] 01-01-2025 Telephone encounter Note Prescription Refill [...] Deshpande LPN January 01, 2025 7:29 AM [facility] 01-01-2025 Miscellaneous Notes Prescription Refill Information [...] 2025 7:29 AM documented in this encounter [facility] 12-29-2024 Note SARS-COV-2 (AGENT OF COVID-19) RNA: Detected INFLUENZA A RNA: Not detected INFLUENZA B RNA: Not detected RESPIRATORY SYNCYTIAL VIRUS (RSV) RNA: Not detected [facility] Comment on above: Performed By: #### [id number] ####[facility] LABCLIA [id number] [address] OF [facility] 12-29-2024 Note HNO ID: [id number] Author: FRANCINE MADRID APRN.GYMNASIUM TEACHER Service: ? 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 Cataract Colon polyp 2011 Controlled type 2 diabetes mellitus without complication, without long-term current use of insulin ([facility]) 10/22/2016 De Quervain's tenosynovitis, left 07/31/2019 Diabetic eye exam ([facility]) 01/16/2016 Lat done: 12/03/2017 No retinopathy [...] [place] Type 2 diabetes mellitus with hyperlipidemia ([facility]) ([facility]) 04/17/2024 Vitamin D deficiency 2013 Well adult exam 01/16/2016 Last done: 09/08/2018 Previous Surgical History PAST SURGICAL HISTORY Procedure Laterality Date 2D ECHO (EXEP) 06/30/2017 EF=65%, trivial CO, TI and 1+ PI Unchanged from 04/2017 2D ECHO (EXEP) 05/14/2021 EF=60%, 1+ TI, trival CO, AI, PI 2D ECHO (EXEP) 09/16/2021 EF=60%, [...] cancer) Mother Coronary Artery Disease Father 25 CO @ 25. CABG Diabetes Father Diabetes Paternal Grandmother Diabetes Maternal Grandfather other (Lung cancer) Brother other (suicide) Son may of been depression Patient Allergies ALLERGIES Allergen Reactions Brilinta [Ticagrelo* Shortness of Breath Crestor (more content not included)... 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 Cataract Colon polyp 2011 Controlled type 2 diabetes mellitus without complication, without long-term current use of insulin (HCC) 10/22/2016 De Quervain's tenosynovitis, left 07/31/2019 Diabetic eye exam ([facility]) 01/16/2016 Lat done: 12/03/2017 No retinopathy [...] Date 2D ECHO (EXEP) 06/30/2017 EF=65%, trivial CO, TI and 1+ PI Unchanged from 04/2017 2D ECHO (EXEP) 05/14/2021 EF=60%, 1+ TI, trival CO, AI, PI 2D ECHO (EXEP) 09/16/2021 EF=60%, [...] cancer) Mother Coronary Artery Disease Father 25 CO @ 25. CABG Diabetes Father Diabetes Paternal Grandmother Diabetes Maternal Grandfather other (Lung cancer) Brother other (suicide) Son may of been depression Patient Allergies ALLERGIES Allergen Reactions Brilinta [Ticagrelo* Shortness of Breath Crestor [Rosuvastat* Myalgia Keflex [Cephalexin] Other: See Comments facial flushing Lipitor [Atorvastat* Other: See Comments myalgia Lovastatin Other: See Comments myalgia [place] [Hydrocodone-* Itching Current Medications Current Outpatient Medications [...] 100 MG DAILY August 23, 2019 3:27pm qcqwkw-vrgfmxwp-aujkhco (CREON 36) 36,000-114,000- 180,000 unit delayed release [...] up with cardiology for re-eval. Francine Madrid APRN.GYMNASIUM TEACHER documented in this encounter [facility] 12-14-2024 Telephone encounter Note The following approved medication requests have been transmitted electronically. Requested Prescriptions Signed Prescriptions Disp Refills omeprazole (PRILOSEC) 40 mg capsule 30 capsule 5 Sig: Take 1 capsule by mouth once daily. Authorizing Provider: CLIFTON HUNG MD [facility] 12-14-2024 Miscellaneous Notes The following approved medication [...] 2024 5:43 PM documented in this encounter [facility] 12-14-2024 Telephone encounter Note The patient has [...] Escobar RN December 14, 2024 5:43 PM [facility] 11-03-2024 Instructions Alexa Matute MD - 11/03/2024 [...] the urine sample documented in this encounter [facility] 11-03-2024 Note HNO ID: [id number] Author: ALEXA MATUTE MD Service: ? 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 Cataract Colon polyp 2011 Controlled type 2 diabetes mellitus without complication, without long-term current use of insulin (HCC) 10/22/2016 De Quervain's tenosynovitis, left 07/31/2019 Diabetic eye exam ([facility]) 01/16/2016 Lat done: 12/03/2017 No retinopathy [...] Date 2D ECHO (EXEP) 06/30/2017 EF=65%, trivial CO, TI and 1+ PI Unchanged from 04/2017 2D ECHO (EXEP) 05/14/2021 EF=60%, 1+ TI, trival CO, AI, PI 2D ECHO (EXEP) 09/16/2021 EF=60%, [...] summer 2022 ST (more content not included)... [facility] 11-03-2024 History of Present illness Narrative ENDOCRINOLOGY [...] disturbance 06/2017 Arthritis tendonitis, arthritis 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 (HCC) 01/09/[address] 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 Cataract Colon polyp 2011 Controlled type 2 diabetes mellitus without complication, without long-term current use of insulin ([facility]) 10/22/2016 De Quervain's tenosynovitis, left 07/31/2019 Diabetic eye exam ([facility]) 01/16/2016 Lat done: 12/03/2017 No retinopathy [...] [place] Type 2 diabetes mellitus with hyperlipidemia ([facility]) ([facility]) 04/17/2024 Vitamin D deficiency 2013 Well adult exam 01/16/2016 Last done: 09/08/2018 Surgical History: PAST SURGICAL HISTORY Procedure Laterality Date 2D ECHO (EXEP) 06/30/2017 EF=65%, trivial CO, TI and 1+ PI Unchanged from 04/2017 2D ECHO (EXEP) 05/14/2021 EF=60%, 1+ TI, trival CO, AI, PI 2D ECHO (EXEP) 09/16/2021 EF=60%, [...] cancer) Mother Coronary Artery Disease Father 25 CO @ 25. CABG Diabetes Father Diabetes Paternal [...] Comments myalgia Lovastatin Other: See Comments myalgia [place] [Hydrocodone-* Itching Current medications: Current Outpatient Medications [...] 100 MG DAILY August 23, 2019 3:27pm xteepb-lcfhqwor-fimvdtm (CREON 36) 36,000-114,000- 180,000 unit delayed release [...] Tissues: No significant finding. Lower thorax: Unremarkable. Dining Services Director (topogram) images: No additional findings. IMPRESSION: Stable [...] Lower thorax and bones: No significant findings. Dining Services Director (topogram) images: No additional findings. IMPRESSION: 1. [...] SERVICE: 12:48 PM documented in this encounter [facility] 10-18-2024 Instructions Clifton Hung MD - 10/18/2024 9:51 AM EST Please get labs and urine test done on or after prior to your next visit. documented in this encounter [facility] 10-18-2024 History of Present illness Narrative Chief [...] last visit 09/2024 Patient sees Cardiology - [facility] last visit 04/2024 Past medical history, appointments, medications, allergies reviewed. Previous Medical History PAST MEDICAL HISTORY Diagnosis Date Advance directive discussed with patient 04/08/2023 Discussed 03/2023: Up to date Amaurosis fugax 10/29/2017 TIA; right visual disturbance 06/2017 Arthritis tendonitis, arthritis 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 (HCC) [...] Date 2D ECHO (EXEP) 06/30/2017 EF=65%, trivial CO, TI and 1+ PI Unchanged from 04/2017 2D ECHO (EXEP) 05/14/2021 EF=60%, 1+ TI, trival CO, AI, PI 2D ECHO (EXEP) 09/16/2021 EF=60%, [...] cancer) Mother Coronary Artery Disease Father 25 CO @ 25. CABG Diabetes Father Diabetes Paternal Grandmother Diabetes Maternal Grandfather other (Lung cancer) Brother other (suicide) Son may of been depression Patient Allergies ALLERGIES Allergen Reactions Brilinta [Ticagrelo* Shortness of Breath Crestor [Rosuvastat* Myalgia Keflex [Cephalexin] Other: See Comments facial flushing Lipitor [Atorvastat* Other: See Comments myalgia Lovastatin Other: See Comments myalgia [place] [Hydrocodone-* Itching Current Medications Current Outpatient Medications [...] 100 MG DAILY August 23, 2019 3:27pm blbcdh-pcefgogl-ticpssk (CREON 36) 36,000-114,000- 180,000 unit delayed release [...] Abs Lymph 1.00 - 4.00 k/uL 1.82 Hubbard% % 9.0 Abs [place] <0.87 k/uL 0.47 Eosin% % 1.3 Abs [...] Type 2 diabetes mellitus with hyperlipidemia (HCC) ([facility]) - ICD9: 250.80, 272.4, ICD10: E11.69, E78.5 [...] complication, without long-term current use of insulin ([facility]) - ICD9: 250.00, ICD10: E11.9 - Controlled - Improving control - Continue current medications - Counseled on healthy diet and regular exercise - Discussed need for and benefit of weight loss. BMI 24.88 kg/(m^2) 3. Diabetic eye exam ([facility]) - ICD9: V72.0, 250.00, ICD10: Z01.00, E11.9 [...] able to tolerate statins. 6. 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) - [...] Clifton Hung MD documented in this encounter [facility] 10-18-2024 Note HNO ID: [id number] Author: CLIFTON HUNG MD Service: ? Author [...] last visit 09/2024 Patient sees Cardiology - [facility] last visit 04/2024 Past medical history, appointments, medications, allergies reviewed. Previous Medical History PAST MEDICAL HISTORY Diagnosis Date Advance directive discussed with patient 04/08/2023 Discussed 03/2023: Up to date Amaurosis fugax 10/29/2017 TIA; right visual disturbance 06/2017 Arthritis tendonitis, arthritis 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 (HCC) [...] Date 2D ECHO (EXEP) 06/30/2017 EF=65%, trivial CO, TI and 1+ PI Unchanged from 04/2017 2D ECHO (EXEP) 05/14/2021 EF=60%, 1+ TI, trival CO, AI, PI 2D ECHO (EXEP) 09/16/2021 EF=60%, [...] Artery Disease Father (more content not included)... [facility] 10-13-2024 Telephone encounter Note Left detailed message. Shakeel Yang MA [facility] 10-13-2024 Miscellaneous Notes Left detailed message. Shakeel Yang MA Labs placed. Patient calls and states that she has a 6 month follow up on 10/18. Patient asking if provider wants her to get labs done prior to appointment? Please review and adviseSylwia RN documented in this encounter [facility] 10-13-2024 Telephone encounter Note Labs placed. [facility] 10-13-2024 Telephone encounter Note Patient calls and states that she has a 6 month follow up on 10/18. Patient asking if provider wants her to get labs done prior to appointment? Please review and advise, Sylwia Kirk RN [facility] 10-02-2024 Note HNO ID: [id number] Author: SHAKEEL YANG MA Service: ? Author Type: Head Resident Type: Progress Notes Filed: 10/02/2024 17:02 Note Text: Scan on 09/29/2024 4:11 PM by ProviderDeyvi PA-C: Consultation - Ophthalmology Shakeel Yang MA [facility] 10-02-2024 History of Present illness Narrative Scan on 09/29/2024 4:11 PM by Deyvi Yadav PA-C: Consultation - Ophthalmology Shakeel Yang MA documented in this encounter [facility] 09-26-2024 Telephone encounter Note Notified via [employer]. Advised to call in and schedule. Kassandra Mitchell MA [facility] 09-26-2024 Miscellaneous Notes Notified via [employer]. Advised to call in and schedule. Kassandra Mitchell MA Patient should have an ER follow up appt. See [employer] message. Kassandra Mitchell MA documented in this encounter [facility] 09-26-2024 Telephone encounter Note Patient should have an ER follow up appt. [facility] 09-26-2024 Telephone encounter Note See [employer] message. Kassandra Mitchell MA [facility] 09-22-2024 Alexa Horton MD - 09/22/2024 9:34 [...] let me know documented in this encounter [facility] 09-22-2024 Note HNO ID: [id number] Author: ALEXA MATUTE MD Service: ? 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 [facility] 09-22-2024 History of Present illness [facility]arrative [facility] Follow up note History of Present Illness: Ms. 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 CABG Diabetes Father Diabetes Paternal [...] Comments myalgia Lovastatin Other: See Comments myalgia [place] [Hydrocodone-* Itching Current medications: Current Outpatient Medications [...] 100 MG DAILY August 23, 2019 3:27pm sqqhgi-xswkzbub-ctvkquh (CREON 36) 36,000-114,000- 180,000 unit delayed release [...] Tissues: No significant finding. Lower thorax: Unremarkable. Dining Services Director (topogram) images: No additional findings. IMPRESSION: Stable [...] Lower thorax and bones: No significant findings. Dining Services Director (topogram) images: No additional findings. IMPRESSION: 1. [...] SERVICE: 12:48 PM documented in this encounter [facility] 09-14-2024 Note HNO ID: [id number] Author: CHAD MARIEE APRN.ELIZABETH Service: ? Author Type: Nurse Practitioner Type: Progress Notes Filed: 09/14/2024 09:22 Note Text: Chief Complaint Patient presents with: Established Patient HPI: Dom Avila is a 69 year old female who presents here today for follow up DCIS. Per Dr. Georges previous note: H/o rju-klcklbt-jwwyfyads diabetes mellitus, hypertension, ASCAD, and TIA who [...] breast lumpectomy for DCIS on 04/08/2021 at [facility] Pathology (from [facility]) reveals - ductal carcinoma in situ...,size of DCIS - 1.0 x 0.4 cm...,architectural type - cribriform..., nuclear grade 1-2..., necrosis - present central (expansive comedo necrosis)..., biopsy cavity is 0.5 cm from closest anterior margin (which is skin)..., ER >95%, RI >95% Postoperative course is unremarkable with no [...] rashes/lesions Heme:denies bleeding, up to date on [facility] exam-next due next 2024 The ROS is [...] Continue tamoxifen. - Continue follow up with PCP/GI/Cards/[facility]. - Mammogram due March 2025. - Follow up after above. - Pt. aware to call office with any questions/concerns. The sensitive examination was discussed with the Patient or Patient's Authorized Patient Intake Coordinator. As applicable, any other physician, advance practice provider, medical student, or other health professional student that will be observing or involved in the sensitive examination for educational or training purposes was discussed with the Patient or Authorized Patient Intake Coordinator. The Patient or Authorized Patient Intake Coordinator has agreed to proceed with the sensitive examination. (Sensitive examination includes inspection and/or palpation of the breasts, pelvis, prostate and anorectal regions) The patient indicates understanding of these issues and agrees with the plan. All documentation from previous visit of 03/14/24-Dr. Georges/myself was copied and pasted, documentation has been reviewed and edited as necessary for today's visit. Chad Mariee APRN.[facility] 09-14-2024 History of Present illness Narrative Chief Complaint Patient presents with: Established Patient HPI: Dom Avila is a 69 year old female who presents here today for follow up DCIS. Per Dr. 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 2024 The ROS [...] Continue tamoxifen. - Continue follow up with PCP/GI/Cards/[facility]. - Mammogram due March 2025. - Follow up after above. - Pt. aware to call office with any questions/concerns. The sensitive examination was discussed with the Patient or Patient's Authorized Patient Intake Coordinator. As applicable, any other physician, advance practice provider, medical student, or other health professional student that will be observing or involved in the sensitive examination for educational or training purposes was discussed with the Patient or Authorized Patient Intake Coordinator. The Patient or Authorized Patient Intake Coordinator has agreed to proceed with the sensitive [...] Chad Mariee APRN.ELIZABETH documented in this encounter [facility] 08-15-2024 History of Present illness Narrative Radiology [...] PATIENT PRESENTS WITH AN IMPLANTABLE OR ATTACHED CHAPLAIN RESIDENT: No RADIOLOGY DEPARTMENT: CT; Exam(s) Completed: Adrenal PERIPHERAL IV DATA: Not applicable SIGNED BY: RT Susie(Sunil) August 15, 2024 11:57 AM documented in this encounter [facility] 08-15-2024 Note HNO ID: [id number] Author: LAURA RIVAS RT(Sunil) Service: ? Author Type: Retail Warehouse Associate Type: Progress Notes Filed: 08/15/2024 11:57 Note [...] PATIENT PRESENTS WITH AN IMPLANTABLE OR ATTACHED CHAPLAIN RESIDENT: No RADIOLOGY DEPARTMENT: CT; Exam(s) Completed: Adrenal PERIPHERAL IV DATA: Not applicable SIGNED BY: RT Susie(R) August 15, 2024 11:57 AM [facility] 08-04-2024 Instructions Ori Lord DO - 08/04/2024 [...] rest or medications. documented in this encounter [facility] 08-04-2024 Note HNO ID: [id number] Author: ORI LORD DO Service: ? Author Type: Physician Type: Procedures Filed: 08/11/2024 19:05 Note Text: CYSTOSCOPY , STENT REMOVAL PROCEDURE NOTE: Dom Avila is a 69 year old female who presents for a cystoscopy and stent removal. Pt ID verified with patient: Yes Procedure verified with patient: Yes Procedure confirmed with physician and data support specialist: Yes Fire Safety Check List Reviewed: Yes [...] increase oral fluid intake as directed. A ehr trainer Nicole Madsen was present for the entire visit including examination/procedure. [facility] 08-04-2024 Procedure note CYSTOSCOPY , STENT REMOVAL PROCEDURE NOTE: Dom Avila is a 69 year old female who presents for a cystoscopy and stent removal. Pt ID verified with patient: Yes Procedure verified with patient: Yes Procedure confirmed with physician and data support specialist: Yes Fire Safety Check List Reviewed: Yes [...] increase oral fluid intake as directed. A ehr trainer Nicole Madsen was present for the entire visit including examination/procedure. [facility] 08-04-2024 Note HNO ID: [id number] Author: ORI LORD DO Service: ? 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 ([facility]) (01/09/2017), Garibay's cyst of knee, left (03/02/2018), Breast neoplasm, Tis (DCIS), 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), CAD (coronary artery disease), Cataract, Colon polyp (2011), Controlled type 2 diabetes mellitus without complication, without long-term current use of insulin ([facility]) (10/22/2016), De Quervain's tenosynovitis, left (07/31/2019), Diabetic eye exam ([facility]) (01/16/2016), Ductal carcinoma in situ (DCIS) of [...] NUTRITIONAL SUPPLEMENT, pioglitazone, omeprazole, doxycycline, coenzyme q10, cojzif-npbwomea-bjbfees, lisinopril, estradiol, tamoxifen, calcium citrate-vitamin d3, ezetimibe, [...] OBJECTIVE: PHYSICAL EXAMINATI (more content not included)... [facility] 08-04-2024 History of Present illness Narrative Images from the original note were not included. 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) (01/09/2017), Garibay's cyst of knee, left (03/02/2018), Breast neoplasm, Tis (DCIS), 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), CAD (coronary artery disease), Cataract, Colon polyp (2011), Controlled type 2 diabetes mellitus without complication, without long-term current use of insulin ([facility]) (10/22/2016), De Quervain's tenosynovitis, left (07/31/2019), Diabetic eye exam ([facility]) (01/16/2016), Ductal carcinoma in situ (DCIS) of [...] NUTRITIONAL SUPPLEMENT, pioglitazone, omeprazole, doxycycline, coenzyme q10, wocbsd-zejqsxlq-dugqfir, lisinopril, estradiol, tamoxifen, calcium citrate-vitamin d3, ezetimibe, [...] Coli Plan: F/u 6m Conservative mgmt for NELL Cont to f/u endocrine re: R adrenal [...] may be inappropriate. documented in this encounter [facility] 08-04-2024 Procedure note CYSTOSCOPY , STENT REMOVAL PROCEDURE NOTE: Dom Avila is a 69 year old female who presents for a cystoscopy and stent removal. Pt ID verified with patient: Yes Procedure verified with patient: Yes Procedure confirmed with physician and data support specialist: Yes Fire Safety Check List Reviewed: Yes [...] increase oral fluid intake as directed. A ehr trainer Nicole Madsen was present for the entire visit including examination/procedure. documented in this encounter [facility] 08-02-2024 Telephone encounter Note The following approved medication requests have been transmitted electronically. Requested Prescriptions Signed Prescriptions Disp Refills pioglitazone (ACTOS) 15 mg tablet 90 tablet 1 Sig: Take 1 tablet by mouth once daily. Authorizing Provider: CLIFTON HUNG MD [facility] 08-02-2024 Miscellaneous Notes The following approved medication [...] 2024 1:27 PM documented in this encounter [facility] 08-02-2024 Telephone encounter Note Prescription Refill Information [...] Valdes LPN August 02, 2024 1:27 PM [facility] 07-17-2024 Telephone encounter Note The following approved medication requests have been transmitted electronically. Requested Prescriptions Signed Prescriptions Disp Refills omeprazole (PRILOSEC) 40 mg capsule 30 capsule 5 Sig: Take 1 capsule by mouth once daily. Authorizing Provider: CLIFTON HUNG MD [facility] 07-17-2024 Miscellaneous Notes The following approved medication [...] 2024 1:22 PM documented in this encounter [facility] 07-17-2024 Telephone encounter Note Prescription Refill Information [...] Nunez LPN July 17, 2024 1:22 PM [facility] 07-11-2024 Alexa Horton MD - 07/11/2024 1:33 PM EDT Please hold metformin for 2 days before the imaging for CT with contrast documented in this encounter [facility] 07-11-2024 Note HNO ID: [id number] Author: ALEXA MATUTE MD Service: ? 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 Gomez 03/02/2018: Garibay's cyst of knee, left 03/2021: Breast neoplasm, Tis (DCIS), left No date: CAD (coronary artery disease) No date: Cataract 2011: Colon polyp 10/22/2016: Controlled type 2 diabetes mellitus without complication, without long-term current use of insulin ([facility]) 07/31/2019: De Quervain's tenosynovitis, left 01/16/2016: Diabetic eye exam ([facility]) Comment: Lat done: 12/03/2017 No retinopathy 05/26/2021: [...] 06/30/2017: 2D ECHO (EXEP) Comment: EF=65%, trivial CO, TI and 1+ PI Unchanged from 04/201705/14/2021: 2D ECHO (EXEP) Comment: EF=60%, 1+ TI, trival CO, AI, PI 09/16/2021: 2D ECHO (EXEP) Comment: [...] cancer) Mother Coronary Artery Disease Father 25 CO @ 25. CABG Diabetes Father Diabetes Paternal [...] Comments myalgia Lovastatin Other: See Comments myalgia [place] [Hydrocodone-* Itching Current medications: Current Outpatient Medications [...] 100 MG DAILY August 23, 2019 3:27pm qdnwix-llvrnjaj-ncnklay (CREON 36) 36,000-114,000- 180,000 unit delayed release [...] Tissues: No significant finding. Lower thorax: Unremarkable. Dining Services Director (topogram) images: No additional findings. IMPRESSION: Stable [...] SERVICE: 12:48 PM documented in this encounter [facility] 07-04-2024 Instructions Pascual Ori, - 07/04/2024 11:03 [...] tobacco products. Take any kinds of medicines, tizs-jkz-jnazfhz supplements or recreational drugs. Have other family [...] the definition of microhematuria according to the [place] [employer]. Repeat testing is not required [...] eat or drink or what to avoid. [place] / Prognosis What can I expect if [...] the most likely cause. A note from [facility] You might have blood in your urine [...] patient s medical history, current prescription and juvm-qfi-nxwhhjw medications, and allergies to medications, including anesthetics. [...] her bladder before the procedure begins. The uiha-ul-edji process may be similar to this: The [...] urethral opening to relieve discomfort Take an jwil-nps-tfzmsge pain medicine If necessary, the urologist may [...] urine Fever Severe discomfort References: NIH: National [place] of Diabetes and Digestive and Kidney Diseases. Cystoscopy and Ureteroscopy Accessed 05/06/2017. Rolando Paul, Jonnathan D, Buzz H, Bismark CHEUNG. The History of Cystoscopy in Urology, Internet Journal of Urology. 14,1 (2015) [employer] Accessed 05/06/2017. [employer]. What is Cystoscopy? Accessed 05/06/2017. Copyright 5720-5308 [facility]. All rights reserved. documented in this encounter [facility] 07-04-2024 Note HNO ID: [id number] Author: ORI LORD DO Service: ? Author Type: Physician Type: Progress Notes Filed: 07/04/2024 11:16 Note Text: [facility] ESTABLISHED PATIENT NOTE/HISTORY AND PHYSICAL PATIENT: Dom Avila (68 year old) PCP: Clifton Hung MD DATE OF SERVICE: 07/04/2024 SUBJECTIVE: CHIEF COMPLAINT: Patient is here for 6 week f/u. Patient has no new concerns. Patient is scheduled to see an Touch Up Edger on 07/11/24. HISTORY OF PRESENT ILLNESS: The [...] (04/08/2023), 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), Arthritis, 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 (HCC) (01/09/2017), Garibay's cyst of knee, left (03/02/2018), Breast neoplasm, Tis (DCIS), 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), CAD (coronary artery disease), Cataract, Colon polyp (2011), Controlled type 2 diabetes mellitus without complication, without long-term current use of insulin ([facility]) (10/22/2016), De Quervain's tenosynovitis, left (07/31/2019), Diabetic eye exam ([facility]) (01/16/2016), Ductal carcinoma in situ (DCIS) of [...] includes the following prescription(s): doxycycline, coenzyme q10, ciknfz-hfqzhcrh-abbxceu, lisinopril, fluconazole, estradiol, tamoxifen, pioglitazone, omeprazole, calcium [...] smoking use include (more content not included)... [facility] 07-04-2024 History of Present illness Narrative Images from the original note were not included. [facility] ESTABLISHED PATIENT NOTE/HISTORY AND PHYSICAL PATIENT: Dom Avila (68 year old) PCP: Clifton Hung MD DATE OF SERVICE: 07/04/2024 SUBJECTIVE: CHIEF COMPLAINT: Patient is here for 6 week f/u. Patient has no new concerns. Patient is scheduled to see an Touch Up Edger on 07/11/24. HISTORY OF PRESENT ILLNESS: The [...] (04/08/2023), 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), Arthritis, 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 (HCC) (01/09/2017), Garibay's cyst of knee, left (03/02/2018), Breast neoplasm, Tis (DCIS), 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), CAD (coronary artery disease), Cataract, Colon polyp (2011), Controlled type 2 diabetes mellitus without complication, without long-term current use of insulin ([facility]) (10/22/2016), De Quervain's tenosynovitis, left (07/31/2019), Diabetic eye exam ([facility]) (01/16/2016), Ductal carcinoma in situ (DCIS) of [...] includes the following prescription(s): doxycycline, coenzyme q10, rpehpi-afciclko-unputzu, lisinopril, fluconazole, estradiol, tamoxifen, pioglitazone, omeprazole, calcium [...] -Patient will call the clinic or use [facility] should anything change or any new issues arise -All questions were answered Ori Lord DO Staff Urologist Medical Decision Making: Problems: Moderate: 2+ stable chronic illnesses Data: Unique test result(s) reviewed: 3+ Medical Decision Making Level: 4 - Moderate documented in this encounter [facility] 06-26-2024 Note HNO ID: [id number] Author: LATRICE DUNN LPN Service: ? Author Type: LICENSED NURSE Type: Progress Notes Filed: 06/26/2024 07:18 Note Text: Scan on 06/25/2024 10:26 AM by Deyvi Yadav PA-C: CT Scan [facility] 06-26-2024 History of Present illness Narrative Scan on 06/25/2024 10:26 AM by Provider, External, PA-C: CT Scan documented in this encounter [facility] 06-19-2024 Note HNO ID: [id number] Author: SHAKEEL YANG MA Service: ? Author Type: Head Resident Type: Progress Notes Filed: 06/19/2024 15:17 Note Text: Scan on 06/19/2024 10:34 AM by ProviderDeyvi PA-C: Chemistry Scan on 06/19/2024 10:37 AM by Deyvi Yadav PA-C: Consultation - Emergency Medicine Scan on 06/19/2024 11:44 AM by Deyvi Yadav PA-C: EGD Scan on 06/19/2024 11:46 AM by Deyvi Yadav PA-C: Colonoscopy Shakeel Yang MA [facility] 06-19-2024 History of Present illness Narrative Scan on 06/19/2024 10:34 AM by Deyvi Yadav PA-C: Chemistry Scan on 06/19/2024 10:37 AM by Deyvi Yadav PA-C: Consultation - Emergency Medicine Scan on 06/19/2024 11:44 AM by Deyvi Yadav PA-C: EGD Scan on 06/19/2024 11:46 AM by Deyvi Yadav PA-C: Colonoscopy Shakeel Yang MA documented in this encounter [facility] 06-19-2024 Note [facility] Medical Records Department [address] [place] [id number] History Physical Exam 06/19/24 1030 MR#: [id number] Acct: [id number] Name: DOM AVILA Rep #: [id number] : 1955 68 From: Carson Alcantar DO PCP: Dr. Clifton Hung MD Status:[facility] Location: [place] [address] History and Physical Date of Admission: 06/19/24 [...] Fecal Fat, Qualitati (more content not included)... [facility] 06-15-2024 Note HNO ID: [id number] Author: LATRICE DUNN LPN Service: ? Author Type: LICENSED NURSE Type: Progress Notes Filed: 06/15/2024 09:45 Note Text: Scan on 06/15/2024 8:15 AM by Deyvi Yadav PA-C: Microbiology [facility] 06-15-2024 History of Present illness Narrative Scan on 06/15/2024 8:15 AM by Deyvi Yadav PA-C: Microbiology documented in this encounter [facility] 06-14-2024 Note HNO ID: [id number] Author: LATRICE DUNN LPN Service: ? Author Type: LICENSED NURSE Type: Progress Notes Filed: 06/14/2024 06:48 Note Text: Scan on 06/14/2024 1:35 AM by Deyvi Yadav PA-C: Miscellaneous Lab [facility] 06-14-2024 History of Present illness Narrative Scan on 06/14/2024 1:35 AM by Deyvi Yadav PA-C: Miscellaneous Lab documented in this encounter [facility] 06-09-2024 Note HNO ID: [id number] Author: SHAKEEL YANG MA Service: ? Author Type: Head Resident Type: Progress Notes Filed: 06/09/2024 14:54 Note Text: Scan on 06/08/2024 4:38 PM by Deyvi Yadav PA-C: Miscellaneous Lab Shakeel Yang MA [facility] 06-09-2024 History of Present illness Narrative Scan on 06/08/2024 4:38 PM by Deyvi Yadav PA-C: Miscellaneous Lab Shakeel Yang MA documented in this encounter [facility] 06-06-2024 Note HNO ID: [id number] Author: LATRICE DUNN LPN Service: ? Author Type: LICENSED NURSE Type: Progress Notes Filed: 06/06/2024 11:38 Note Text: Scan on 06/06/2024 9:40 AM by Deyvi Yadav PA-C: Microbiology [facility] 06-06-2024 History of Present illness Narrative Scan on 06/06/2024 9:40 AM by Deyvi Yadav PA-C: Microbiology documented in this encounter [facility] 06-06-2024 Note HNO ID: [id number] Author: LATRICE DUNN LPN Service: ? Author Type: LICENSED NURSE Type: Progress Notes Filed: 06/06/2024 06:57 Note Text: Scan on 06/05/2024 4:39 PM by Deyvi Yadav PA-C: Hematology [facility] 06-06-2024 History of Present illness Narrative Scan on 06/05/2024 4:39 PM by Deyvi Yadav PA-C: Hematology documented in this encounter [facility] 05-23-2024 Telephone encounter Note Please let the [...] 3 to 4 hours Ori Lord DO [facility] Work Phone: 05-23-2024 Miscellaneous Notes Please let [...] Ori Lord DO documented in this encounter [facility] 05-23-2024 Telephone encounter Note Consult to Endocrinology at [facility] faxed VIA sherif Madsen MA [facility] 05-23-2024 Miscellaneous Notes Consult to Endocrinology at [facility] faxed VIA sherif Madsen MA documented in this encounter [facility] 05-23-2024 Instructions Ori Landin DO - 05/23/2024 [...] s Wellness & Healthy Aging [facility] at [facility] says, it may be something called Genitourinary [...] also be used as lubricants and moisturizers. [place] / Prognosis What can I expect if [...] provider. If weeks go by and the chzz-bay-rlwkrzb moisturizers you re using for dryness don t work, you should see your healthcare provider. Also, always see your healthcare provider for any symptoms that negatively impact your daily life. documented in this encounter [facility] 05-23-2024 Note HNO ID: [id number] Author: ORI LANDIN DO Service: ? Author Type: Physician Type: Progress Notes Filed: 05/23/2024 16:45 Note Text: 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) (01/09/2017), Garibay's cyst of knee, left (03/02/2018), Breast neoplasm, Tis (DCIS), 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), CAD (coronary artery disease), Cataract, Colon polyp (2011), Controlled type 2 diabetes mellitus without complication, without long-term current use of insulin ([facility]) (10/22/2016), De Quervain's tenosynovitis, left (07/31/2019), Diabetic eye exam ([facility]) (01/16/2016), Ductal carcinoma in situ (DCIS) of [...] includes the following prescription(s): doxycycline, coenzyme q10, rldprc-zybxjisf-wgdbihr, lisinopril, fluconazole, estradiol, tamoxifen, pioglitazone, omeprazole, calcium [...] She reports saira (more content not included)... [facility] 05-23-2024 History of Present illness Narrative Images from the original note were not included. [facility] ESTABLISHED PATIENT NOTE/HISTORY AND PHYSICAL PATIENT: Dom [...] (04/08/2023), 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), Arthritis, 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 ([facility]) (01/09/2017), Garibay's cyst of knee, left (03/02/2018), Breast neoplasm, Tis (DCIS), 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), CAD (coronary artery disease), Cataract, Colon polyp (2011), Controlled type 2 diabetes mellitus without complication, without long-term current use of insulin ([facility]) (10/22/2016), De Quervain's tenosynovitis, left (07/31/2019), Diabetic eye exam ([facility]) (01/16/2016), Ductal carcinoma in situ (DCIS) of [...] includes the following prescription(s): doxycycline, coenzyme q10, qrvhfl-pdnccoil-eqfibft, lisinopril, fluconazole, estradiol, tamoxifen, pioglitazone, omeprazole, calcium [...] the R tenderness Kegels not tested Medical ehr trainer present for exam: Lachelle Lemons DATA: Clinic: [...] to 4 hours documented in this encounter [facility] 05-01-2024 History of Present illness Narrative Images from the original note were not included. This note was created using [employer]. Subjective Dom Avila is a 68 year [...] Julio Tavarez APRN.ELIZABETH documented in this encounter [facility] 04-25-2024 History of Present illness Narrative Scan on 04/21/2024 2:48 PM by Provider, KELLY Carnes: Consultation - Cardiology Shakeel Yang MA documented in this encounter [facility] 04-25-2024 Instructions Ori Landin DO - 04/25/2024 [...] and substances do you use, including prescriptions, gjqw-lst-ivknksl drugs, supplements, nicotine, caffeine and alcohol? Your [...] or leaving your house. A note from [facility] Lower urinary tract symptoms (LUTS) include a wide variety of problems with urination. Examples include involuntarily leaking urine or having sudden and strong urges to pee. LUTS may be signs of a health problem, so it s important to talk to a healthcare provider. documented in this encounter [facility] 04-25-2024 Note HNO ID: [id number] Author: ORI LANDIN DO Service: ? Author Type: Physician Type: Progress Notes Filed: 04/25/2024 09:28 Note Text: [facility] NEW CONSULT NOTE/NEW PATIENT VISIT/HISTORY AND PHYSICAL: [...] urgency occasionally. 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), Colon polyp (2011), Controlled type 2 diabetes mellitus without complication, without long-term current use of insulin ([facility]) (10/22/2016), De Quervain's tenosynovitis, left (07/31/2019), Diabetic [...] includes the following prescription(s): doxycycline, coenzyme q10, tcxzad-hqfwrkcr-smsuydk, lisinopril, estradiol, tamoxifen, pioglitazone, omeprazole, calcium citrate-vitamin d3, ezetimibe, ammonium lactate, clobetasol propionate, acetaminophen, nitroglycerin sublingual, ketoconazole, magnesium sulfate, montelukast, metoprolol succinate er, lactobacillus acidophilus, fluconazole, amlodipine, metformin, potassium chloride sr, and CPAP. Allergies: -Patient is allergic to brilinta [ticagrelor], crestor [rosuvastatin], keflex [cephalexin], lipito (more content not included)... [facility] 04-25-2024 History of Present illness Narrative Images from the original note were not included. 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), Colon polyp (2011), Controlled type 2 diabetes mellitus without complication, without long-term current use of insulin ([facility]) (10/22/2016), De Quervain's tenosynovitis, left (07/31/2019), Diabetic eye exam ([facility]) (01/16/2016), Ductal carcinoma in situ (DCIS) of [...] includes the following prescription(s): doxycycline, coenzyme q10, hcmzgc-csrkiqnx-sghrery, lisinopril, estradiol, tamoxifen, pioglitazone, omeprazole, calcium citrate-vitamin [...] PVR 0 ml documented in this encounter [facility] 04-25-2024 Note HNO ID: [id number] Author: ?, ?, ? Service: ? Author Type: ? Type: Progress Notes Filed: 04/25/2024 09:28 Note Text: PVR 0 ml [facility] 04-20-2024 Telephone encounter Note Left message for patient to return call to office Ori Moody MA [facility] 04-20-2024 Miscellaneous Notes Left message for patient [...] negative for infection. documented in this encounter [facility] 04-20-2024 Telephone encounter Note I have placed referral to urology for her. [facility] 04-20-2024 Telephone encounter Note Patient informed and [...] she should proceed with? Jennifer Szymanski MA [facility] 04-20-2024 Telephone encounter Note Urine culture negative for infection. [facility] 04-19-2024 Telephone encounter Note Patient called and notified that urine culture order placed. Patient is coming in to lab today. Sylwia Krik RN [facility] 04-19-2024 Miscellaneous Notes Patient called and notified [...] couple of weeks. Patient has appointment with aboriginal education worker coordinator on Wednesday. Patient asking if labs reflect why she would not have any energy? Patient does not have joint pain or rash. Please review and advise, Sylwia Kirk RN documented in this encounter [facility] 04-18-2024 Telephone encounter Note Pt states she is willing to come in to give a urine sample Please place order for lab urine Ori Moody MA [facility] 04-18-2024 Telephone encounter Note Can you find out if patient can come in and give urine sample for urine culture to ensure it is not infection? [facility] 04-18-2024 Telephone encounter Note TC to patient who states she has had an increase in urinary frequency but she has also increased her water intake so does not think they are related. Patient denies pain or burning with urination. Agreeable to starting Vit D and will make sure to keep appointment with Cardio. MADDISON Kaur T [facility] 04-18-2024 Telephone encounter Note Please find out if patient is having any urinary symptoms as her urine was abnormal. Also her vitamin d is low and I would recommend adding a separate vitamin d 5,000 units daily. [facility] 04-18-2024 Telephone encounter Note Patient calls and states that today feels like she has no energy. Patient states that this has been off and on for the past couple of weeks. Patient has appointment with aboriginal education worker coordinator on Wednesday. Patient asking if labs reflect why she would not have any energy? Patient does not have joint pain or rash. Please review and advise, Sylwia Kirk RN [facility] 04-17-2024 Instructions Francine Madrid APRN.CNP - [...] review all the medicines you take, even eupx-pus-oanbvnf medicines. As you get older, the way [...] certain medical conditions. 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 CABG Diabetes Father Diabetes Paternal Grandmother Diabetes Maternal Grandfather other (Lung cancer) Brother other (suicide) Son may of been depression Patient Allergies ALLERGIES Allergen Reactions Brilinta [Ticagrelo* Shortness of Breath Crestor [Rosuvastat* Myalgia Keflex [Cephalexin] Other: See Comments facial flushing Lipitor [Atorvastat* Other: See Comments myalgia Lovastatin Other: See Comments myalgia [place] [Hydrocodone-* Itching Current Medications Current Outpatient Medications [...] Take 2 tablets by mouth once daily. zmelhz-dcvutyoq-gibuvaj (CREON) 12,000-38,000 -60,000 unit delayed release capsule [...] DOXYCYCLINE HYCLATE 100 MG TABLET Francine Madrid APRN.GYMNASIUM TEACHER documented in this encounter [facility] 03-23-2024 Telephone encounter Note The following approved medication requests have been transmitted electronically. Requested Prescriptions Signed Prescriptions Disp Refills amoxicillin-clavulanate potassium (AUGMENTIN) 875-125 mg per tablet 20 tablet 0 Sig: Take 1 tablet by mouth two times a day for 10 days. Authorizing Provider: CLIFTON HUNG MD [facility] 03-23-2024 Miscellaneous Notes The following approved medication requests have been transmitted electronically. Requested Prescriptions Signed Prescriptions Disp Refills amoxicillin-clavulanate potassium (AUGMENTIN) 875-125 mg per tablet 20 tablet 0 Sig: Take 1 tablet by mouth two times a day for 10 days. Authorizing Provider: CLIFTON HUNG MD Nancy from [facility] calls and reports that pharmacy received order for cefadroxil. Patient reported to her that she is highly allergic to cephalexin which is in the same class as ordered medication. Pharmacy asking if provider wants to change medication? Please review and advise, Sylwia Kirk RN documented in this encounter [facility] 03-23-2024 Telephone encounter Note Nancy from [facility] calls and reports that pharmacy received order for cefadroxil. Patient reported to her that she is highly allergic to cephalexin which is in the same class as ordered medication. Pharmacy asking if provider wants to change medication? 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 CABG Diabetes Father Diabetes Paternal Grandmother Diabetes Maternal Grandfather other (Lung cancer) Brother other (suicide) Son may of been depression Patient Allergies ALLERGIES Allergen Reactions Brilinta [Ticagrelo* Shortness of Breath Crestor [Rosuvastat* Myalgia Keflex [Cephalexin] Other: See Comments facial flushing Lipitor [Atorvastat* Other: See Comments myalgia Lovastatin Other: See Comments myalgia [place] [Hydrocodone-* Itching Current Medications Current Outpatient Medications [...] Take 2 tablets by mouth once daily. ljaior-jgwqymyv-zhceptx (CREON) 12,000-38,000 -60,000 unit delayed release capsule [...] Clifton Hung MD documented in this encounter [facility] 03-15-2024 Telephone encounter Note Patient notified. Reviewed directions. Updated pharmacy to [facility]. Caro Hernandez RN [facility] 03-15-2024 Miscellaneous Notes Patient notified. Reviewed directions. Updated pharmacy to [facility]. Caro Hernandez RN Vaginal estrace cream to be prescribed - please verify pharmacy. Please notify patient and review use. Sima Dumont APRN.ELIZABETH Patient saw Oncology providers ok'd estrogen cream. Please advise. documented in this encounter [facility] 03-14-2024 Telephone encounter Note Vaginal estrace cream to be prescribed - please verify pharmacy. Please notify patient and review use. Sima Dmuont APRN.GYMNASIUM TEACHER [facility] 03-14-2024 Telephone encounter Note Patient saw Oncology providers ok'd estrogen cream. Please advise. [facility] 03-14-2024 History of Present illness Narrative Chief Complaint Patient presents with: Established Patient HPI: Dom Avila is a 68 year old female who presents here today for follow up DCIS. Per Dr. Georges previous note: H/o dgh-vayvwvb-fffrcgzur diabetes mellitus, hypertension, ASCAD, and TIA who [...] breast lumpectomy for DCIS on 04/08/2021 at [facility] Pathology (from [facility]) reveals - ductal carcinoma in situ...,size of DCIS - 1.0 x 0.4 cm...,architectural type - cribriform..., nuclear grade 1-2..., necrosis - present central (expansive comedo necrosis)..., biopsy cavity is 0.5 cm from closest anterior margin (which is skin)..., ER >95%, RI >95% Postoperative course is unremarkable with no [...] rashes/lesions Heme:denies bleeding, up to date on [facility]CLAIM[facility] exam-next due next 2024 The ROS is [...] Rx sent. - Continue follow up with PCP/GI/Cards/[facility]. - Mammogram due March 2025. - Follow up in 6 months. - Pt. aware to call office with any questions/concerns. The patient indicates understanding of these issues and agrees with the plan. All documentation from previous visit of 08/27/23-Dr. Georges/myself was copied and pasted, documentation has been reviewed and edited as necessary for today's visit. Chad Mariee APRN.ELIZABETH documented in this encounter [facility] 03-09-2024 Note Formatting of this n ote might be different from the original. March 10, 2024 PID: [id number] Dom Avila [address] [place] [address] Dear Ms. Avila, We are pleased to [...] report will be kept on file at [facility] as part of your permanent medical record and are available for your continuing care. Thank you for allowing us to help in meeting your health care needs. Sincerely, Dr. Hwang Interpreting Radiologist [facility] (Normal over 40) [facility] 03-09-2024 Miscellaneous Notes March 10, 2024 PID: [id number] Dom Avila [address] [place] [address] Dear Ms. Avila, We are pleased to [...] report will be kept on file at [facility] as part of your permanent medical record and are available for your continuing care. Thank you for allowing us to help in meeting your health care needs. Sincerely, Dr. Hwang Interpreting Radiologist [facility] (Normal over 40) documented in this encounter [facility] 03-09-2024 History of Present illness Narrative Radiology [...] PATIENT PRESENTS WITH AN IMPLANTABLE OR ATTACHED CHAPLAIN RESIDENT: No RADIOLOGY DEPARTMENT: Mammography PERIPHERAL IV DATA: Not applicable SIGNED BY: Brandon Snow March 09, 2024 8:46 AM documented in this encounter [facility] 02-29-2024 Note Addended by: CHERISE FRANCIS on: 02/29/2024 09:24 AM Modules accepted: Orders [facility] 02-29-2024 Miscellaneous Notes Addended by: CHERISE HYATT on: 02/29/2024 09:24 AM Modules accepted: Orders Pt has changed pharmacy to [facility] and needs new rx sent to them. [...] Em Mahmood LPN. documented in this encounter [facility] 02-29-2024 Telephone encounter Note Pt has changed pharmacy to [facility] and needs new rx sent to them. [...] Please advise. Thank you. Em Mahmood LPN. [facility] 02-15-2024 Miscellaneous Notes Patient has been identified [...] Delmer Valdes LPN. documented in this encounter [facility] 01-26-2024 Miscellaneous Notes Patient has been identified [...] Latrice Dunn LPN. documented in this encounter [facility] 01-23-2024 Miscellaneous Notes The following approved medication requests have been transmitted electronically. Requested Prescriptions Signed Prescriptions Disp Refills pioglitazone (ACTOS) 15 mg tablet 30 tablet 5 Sig: Take 1 tablet by mouth once daily. Clifton Hung MD documented in this encounter [facility] 01-18-2024 Instructions Sima Dumont APRN.ELIZABETH - 01/18/2024 2:38 PM EDT Discuss with oncology use of vaginal estrogen cream for genitourinary syndrome of menopause. documented in this encounter [facility] 01-18-2024 History of Present illness Narrative Target Network Analyst offered: Patient declines. 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 CABG Diabetes Father Diabetes Paternal [...] Take 2 tablets by mouth once daily. jfedoq-hcuxcqrv-ziytivk (CREON) 12,000-38,000 -60,000 unit delayed release capsule [...] external genitalia normal, normal Bartholin's glands, urethra, [place]'s glands, no vulvar lesions, physiologic discharge present, [...] results. Follow- up as needed. Sima Dumont APRN.GYMNASIUM TEACHER Medical Decision Making: Problems: Moderate: 1+ chronic illnesses with change and 2+ stable chronic illnesses Data: Unique test(s) ordered: 3+ Medical Decision Making Level: 4 - Moderate documented in this encounter [facility] 01-18-2024 Miscellaneous Notes Addressed in TE 01/17/24. Em Mahmood LPN documented in this encounter [facility] 01-18-2024 Miscellaneous Notes Called the lab and [...] lab work for today at 3pm in [facility]. I will be there visiting Dr. Dumont [...] Em Mahmood LPN documented in this encounter [facility] 01-14-2024 History of Present illness Narrative Chief Complaint Patient presents with: Follow Up: Blood pressure HPI Dom Avila is a 68 year old female who presents here today for Above Complaints.. Patient presents for bp follow up. Patient reports home bp 120-130's. Patient was seen by Octaviano Humphries at [facility] who started patient on amlodipine. Past medical history, appointments, medications, allergies reviewed. Previous Medical History PAST MEDICAL HISTORY Diagnosis Date Advance directive discussed with patient 04/08/2023 Discussed 03/2023: Up to date Amaurosis fugax 10/29/2017 TIA; right visual disturbance 06/2017 Arthritis tendonitis, arthritis 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 (HCC) [...] Date 2D ECHO (EXEP) 06/30/2017 EF=65%, trivial CO, TI and 1+ PI Unchanged from 04/2017 2D ECHO (EXEP) 05/14/2021 EF=60%, 1+ TI, trival CO, AI, PI 2D ECHO (EXEP) 09/16/2021 EF=60%, [...] cancer) Mother Coronary Artery Disease Father 25 CO @ 25. CABG Diabetes Father Diabetes Paternal Grandmother Diabetes Maternal Grandfather other (Lung cancer) Brother other (suicide) Son may of been depression Patient Allergies ALLERGIES Allergen Reactions Brilinta [Ticagrelo* Shortness of Breath Crestor [Rosuvastat* Myalgia Keflex [Cephalexin] Other: See Comments facial flushing Lipitor [Atorvastat* Other: See Comments myalgia Lovastatin Other: See Comments myalgia [place] [Hydrocodone-* Itching Current Medications Current Outpatient Medications on File Prior to Visit Medication Sig lisinopril (ZESTRIL) 30 mg tablet Take 1 tablet by mouth two times a day. Calcium Citrate-Vitamin D3 (CITRACAL+D) 315 mg-6.25 mcg (250 unit) tab Take 2 tablets by mouth once daily. xsfbfs-goqtjcih-uqjoaag (CREON) 12,000-38,000 -60,000 unit delayed release capsule [...] - Recommend regular aerobic exercise Francine Madrid APRN.GYMNASIUM TEACHER documented in this encounter [facility] 01-10-2024 History of Present illness Narrative Scan on 01/07/2024 2:33 PM by Provider, KELLY Carnes: Consultation - Ophthalmology documented in this encounter [facility] 12-31-2023 Miscellaneous Notes Addended by: FRANCINE MADRID on: 12/31/2023 02:08 PM Modules accepted: Orders documented in this encounter [facility] 12-31-2023 History of Present illness Narrative Chief Complaint Patient presents with: Follow Up: Blood pressure HPI Dom Avila is a 68 year old female who presents here today for Above Complaints.. Patient presents for BP check was in [facility] ER 12/28 for elevated BP. Patient was [...] disturbance 06/2017 Arthritis tendonitis, arthritis 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 (HCC) [...] Date 2D ECHO (EXEP) 06/30/2017 EF=65%, trivial CO, TI and 1+ PI Unchanged from 04/2017 2D ECHO (EXEP) 05/14/2021 EF=60%, 1+ TI, trival CO, AI, PI 2D ECHO (EXEP) 09/16/2021 EF=60%, [...] cancer) Mother Coronary Artery Disease Father 25 CO @ 25. CABG Diabetes Father Diabetes Paternal Grandmother Diabetes Maternal Grandfather other (Lung cancer) Brother other (suicide) Son may of been depression Patient Allergies ALLERGIES Allergen Reactions Brilinta [Ticagrelo* Shortness of Breath Crestor [Rosuvastat* Myalgia Keflex [Cephalexin] Other: See Comments facial flushing Lipitor [Atorvastat* Other: See Comments myalgia Lovastatin Other: See Comments myalgia [place] [Hydrocodone-* Itching Current Medications Current Outpatient Medications on File Prior to Visit Medication Sig lisinopril (ZESTRIL) 30 mg tablet Take 1 tablet by mouth two times a day. Calcium Citrate-Vitamin D3 (CITRACAL+D) 315 mg-6.25 mcg (250 unit) tab Take 2 tablets by mouth once daily. ibaupa-qsplffwg-bjuiwmc (CREON) 12,000-38,000 -60,000 unit delayed release capsule [...] - HYDROCHLOROTHIAZIDE 12.5 MG CAPSULE Francine Madrid APRN.GYMNASIUM TEACHER documented in this encounter [facility] 12-28-2023 History of Present illness Narrative Scan on 12/28/2023 3:13 AM by Provider, Deyvi, KELLY: Consultation - Emergency Medicine documented in this encounter [facility] 12-22-2023 Discharge summary Note Date/Time December 22, 2023 2:00pm [facility] Medical Records Department [address] [place] [address] Emergency Department Summary 12/22/23 MR#: [id number] Acct: [id number] Name: DOM AVILA Rep #:[id number] : 1955 68 From: Caro Pedro MD [...] mild diarrhea but no nausea or vomiting. [facility] Medical History Anxiety Arthritis Atherosclerotic heart disease of [place] coronary artery without angina pectoris Breast cancer, [...] PO DAILY 11/30/22 [History Last Taken Unknown] lpfaor-gvlxvekz-euxhhca 36,000-114,000-180,000 unit capsule,delay rel (Creon) See Rx [...] History Mother Cancer pancreatic cancer Father , [place] age 20's (premature CAD), 3 vessel CABG, [...] Primary Care Provider: Clifton Hung Referrals: Clifton Hugn MD [Primary Care Provider] - 1-2 Weeks Disposition Disposition: Home, Self Care What to do if you have Problems For any increased pain, shortness of breath, bleeding, nausea or vomiting, chestpain, or any unexpected problems, contact your Primary Care Provider. Call [facility] ([phone]) or report to the closest Emergency Room. Call 911 if necessary. 12/22/23 0768 <Electronically signed by Caro Pedro MD> Cosigner Signature (if applicable): CC: Dr. Clifton Hung MD ~ Signed [facility] Work Phone: 1(482) 611-139302-02-2024 History of Present illness Narrative* Latrice Dunn LPN - 12/10/2023 6:57 AM EST Scan on 12/10/2023 4:35 AM by Provider, KELLY Carnes: Miscellaneous Lab [facility] History of Present illness Narrative* Francine Madrid APRN.GYMNASIUM TEACHER - 10/08/2023 9:15 AM EST Chief Complaint [...] disturbance 06/2017 Arthritis tendonitis, arthritis 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 (HCC) [...] Date 2D ECHO (EXEP) 06/30/2017 EF=65%, trivial CO, TI and 1+ PI Unchanged from 04/2017 2D ECHO (EXEP) 05/14/2021 EF=60%, 1+ TI, trival CO, AI, PI 2D ECHO (EXEP) 09/16/2021 EF=60%, [...] cancer) Mother Coronary Artery Disease Father 25 CO @ 25. CABG Diabetes Father Diabetes Paternal Grandmother Diabetes Maternal Grandfather other (Lung cancer) Brother other (suicide) Son may of been depression Patient Allergies ALLERGIES Allergen Reactions Brilinta [Ticagrelo* Shortness of Breath Crestor [Rosuvastat* Myalgia Keflex [Cephalexin] Other: See Comments facial flushing Lipitor [Atorvastat* Other: See Comments myalgia Lovastatin Other: See Comments myalgia [place] [Hydrocodone-* Itching Current Medications Current Outpatient Medications on File Prior to Visit Medication Sig Calcium Citrate-Vitamin D3 (CITRACAL+D) 315 mg-6.25 mcg (250 unit) tab Take 2 tablets by mouth oncedaily. wtwcbp-hvtyiqne-aahvvcg (CREON) 12,000-38,000 -60,000 unit delayed release capsule [...] 327.23, ICD10: G47.33 -Wears CPAP Francine Madrid APRN.GYMNASIUM TEACHER [facility] History of Present illness Narrative* Latrice Dunn LPN - 09/15/2023 8:30 AM EST Scan on 09/14/2023 5:34 PM by Provider, External, PAJosephC: Consultation - Ophthalmology documented [facility] History of Present illness Narrative* Natalie Presley Ma - 08/31/2023 11:37 AM EDT Cardiology OV. Scan on 08/30/2023 2:05 PM by Provider, KELLY Carnes: Consultation - Cardiology documented in [facility] History of Present illness Narrative* Latrice Dunn LPN - 08/02/2023 7:08 AM EDT Scan on 07/30/2023 6:04 PM by Provider, KELLY Carnes: Consultation - Ophthalmology documented in this encounter[facility]23 Instructions* Patient Instructions* Sima Dumont APRN.GYMNASIUM TEACHER - 07/23/2023 11:44 AM EDT Silicone based [...] avoid scratching at night. documented in this encounter[facility] History of Present illness Narrative* Sima Dumont APRN.ELIZABETH - 07/23/2023 10:58 AM EDT Target Network Analyst offered: Patient declines. 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 CABG Diabetes Father Diabetes Paternal [...] tab Take 2 tablets by mouth oncedaily. dwcqun-nlgvvrje-obuehiw (CREON) 12,000-38,000 -60,000 unit delayed release capsule [...] external genitalia normal, normal Bartholin's glands, urethra, [place]'s glands, no vulvar lesions, small amount thick [...] Level: 4 - Moderate documented in this [facility] History of Present illness Narrative* Latrice Dunn LPN - 06/15/2023 10:08 AM EDT Scan on 06/14/2023 2:02 PM by ProviderDeyvi PA-C: Consultation - Ophthalmology documented in this encounter[facility]07[facility] History of Present illness Narrative* Shakeel Yang MA - 06/07/2023 3:57 PM EDT Scan on 06/07/2023 8:43 AM by Deyvi Yadav PA-C: Consultation - Ophthalmology HM oscar. Shakeel Yang MA documented in this encounter[facility]23 History of Present illness Narrative* Latrice Dunn LPN - 04/09/2023 11:47 AM EDT Scan on 04/08/2023 4:51 PM by External Provider, KELLY: Consultation - Ophthalmology documented in this encounter[facility]06-[facility]-2023 Miscellaneous Notes* Telephone Encounter - Natalie Presley Ma - 04/09/2023 8:56 AM EDT See update from pt. Natalie Presley Ma documented in this encounterSelect [facility]06-01-2023 Instructions* Patient Instructions* Clifton Hung MD - 04/08/2023 2:04 PM EDT Please get labs done on or after 09/24/2023 prior to your next visit. documented in this encounterSelect [facility]06-[facility]23 History of Present illness Narrative* Clifton Hung MD - 04/08/2023 12:53 PM EDT Images from the original note were not included. 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 Colon polyp 2011 Controlled type 2 diabetes mellitus without complication, without long-term current use of insulin ([facility]) 10/22/2016 De Quervain's tenosynovitis, left 07/31/2019 Diabetic eye exam ([facility]) 01/16/2016 Lat done: 12/03/2017 No retinopathy [...] Date 2D ECHO (EXEP) 06/30/2017 EF=65%, trivial CO, TI and 1+ PI Unchanged from 04/2017 2D ECHO (EXEP) 05/14/2021 EF=60%, 1+ TI, trival CO, AI, PI 2D ECHO (EXEP) 09/16/2021 EF=60%, [...] [Rosuvastatin], Keflex [Cephalexin], Lipitor [Atorvastatin], Lovastatin, and [place] [Hydrocodone-Acetaminophen] Medications reviewed: Yes FAMILY HISTORY Problem Relation Age of Onset other (Pancreatic cancer) Mother Coronary Artery Disease Father 25 CO @ 25. CABG Diabetes Father Diabetes Paternal [...] disturbance 06/2017 Arthritis tendonitis, arthritis 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 (HCC) [...] Date 2D ECHO (EXEP) 06/30/2017 EF=65%, trivial CO, TI and 1+ PI Unchanged from 04/2017 2D ECHO (EXEP) 05/14/2021 EF=60%, 1+ TI, trival CO, AI, PI 2D ECHO (EXEP) 09/16/2021 EF=60%, [...] cancer) Mother Coronary Artery Disease Father 25 CO @ 25. CABG Diabetes Father Diabetes Paternal Grandmother Diabetes Maternal Grandfather other (Lung cancer) Brother other (suicide) Son may of been depression Patient Allergies ALLERGIES Allergen Reactions Brilinta [Ticagrelo* Shortness of Breath Crestor [Rosuvastat* Myalgia Keflex [Cephalexin] Other: See Comments facial flushing Lipitor [Atorvastat* Other: See Comments myalgia Lovastatin Other: See Comments myalgia [place] [Hydrocodone-* Itching Current Medications Current Outpatient Medications [...] Lymph 1.00 - 4.00 k/uL 1.43 1.36 Hubbard% % 9.4 8.0 Abs [place] <0.87 k/uL 0.45 0.40 Eosin% % 1.3 [...] Negative Ketones, Urine Trace, Negative Negative Specific [place], Ur 1.005 - 1.030 1.017 Hemoglobin/Blood,Ur Negative, [...] diet and regular exercise 6. 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) - [...] which included preparing to see the patient, elfa-uh-ozgn patient care, completing clinical documentation, performing a medically appropriate examination, counseling and educating the patient/family/caregiver and ordering medications, tests, or procedures. Clifton Hung MD documented in this encounterSelect [facility]23 History of Present illness Narrative* Chad Mariee, INTERVENTIONAL PAIN PHYSICIAN.GYMNASIUM TEACHER - 02/26/2023 9:51 AM EDT Chief Complaint Patient presents with: Established Patient HPI: Dom Avila is a 67 year old female who presents here today for follow up DCIS. Per Dr. Georges previous note: H/o nhu-wxmtpvv-knhqnnyfp diabetes mellitus, hypertension, ASCAD, and TIA who [...] breast lumpectomy for DCIS on 04/08/2021 at [facility] Pathology (from [facility]) reveals - ductal carcinoma in situ...,size of DCIS - 1.0 x 0.4 cm...,architectural type - cribriform..., nuclear grade 1-2..., necrosis - present central (expansive comedo necrosis)..., biopsy cavity is 0.5 cm from closest anterior margin (which is skin)..., ER >95%, RI >95% Postoperative course is unremarkable with no [...] rashes/lesions Heme:denies bleeding, up to date on [facility] 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 Chad Mariee APRN.CNP documented in this encounterSelect [facility]04-[facility]23 History of Present illness Narrative* Nesha Patiño [...] 24, 2023 9:16 AM documented in this encounterSelect [facility]04-17-2023 History of Present illness Narrative* Latrice Dunn LPN - 02/22/2023 1:07 PM EDT Scan on 02/22/2023 12:59 PM by External Provider: Consultation - Neurology documented in this encounterSelect [facility]04-14-2023 History of Present illness Narrative* Latrice Dunn LPN - 02/19/2023 7:32 AM EDT Scan on 02/18/2023 12:54 PM by External Provider: Consultation - Cardiology documented in this encounterSelect [facility]04-04-2023 History of Present illness Narrative* Cherise Sifuentes PA-C - 02/09/2023 7:31 AM EDT Chief Complaint Patient presents with: Cough: congestion HPI Dom Avila is a 67 year old female who presents here today for Above Complaints.. Patient has had URI symptoms since 01/31/23. Was seen in [facility] on 02/05. She feels like she [...] disturbance 06/2017 Arthritis tendonitis, arthritis 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 ([facility]) 01/09/[address] 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 CABG Diabetes Father Diabetes Paternal Grandmother Diabetes Maternal Grandfather other (Lung cancer) Brother other (suicide) Son may of been depression Patient Allergies ALLERGIES Allergen Reactions Brilinta [Ticagrelo* Shortness of Breath Crestor [Rosuvastat* Myalgia Keflex [Cephalexin] Other: See Comments facial flushing Lipitor [Atorvastat* Other: See Comments myalgia Lovastatin Other: See Comments myalgia [place] [Hydrocodone-* Itching Current Medications Current Outpatient Medications [...] prn. Cherise Sifuentes PA-C documented in this encounterSelect [facility]04-[facility]-2023 Miscellaneous Notes* Telephone Encounter - Monique Dailey [...] patient. Monique Dailey LPN documented in this encounterSelect [facility]03-31-2023 History of Present illness Narrative* Lori Barriga APRN.GYMNASIUM TEACHER - 02/05/2023 9:43 AM EDT Subjective The history is provided by the patient. No windows technical specialist was used. HPI Domgabbie Avila is a 67 year old female who presents today for CC of cough and congestion, this started in past 5 days. Congestion is more in chest. She was exposed to covid at [employer], but beingday 5 and improving declines testing. [...] disturbance 06/2017 Arthritis tendonitis, arthritis 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 (HCC) 01/09/[address] 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 Lori Barriga APRN.[place] documented in this encounterSelect Medical [facility]03-31-2023 Instructions* Patient Instructions* Lori Barriga APRN.CNP - [...] with PCP for re-evaluation. documented in this encounterSelect Medical Trihealth Rehabilitation Hospital02-09-2023 Miscellaneous Notes* Telephone Encounter - Monique Dailey [...] cancer. Please advise patient. documented in this encounterSelect Medical Trihealth Rehabilitation Hospital02-03-2023 Miscellaneous Notes* Telephone Encounter - Clifton Hung MD - 12/11/2022 8:37 PM EST Noted. documented in this encounterSelect Medical Trihealth Rehabilitation Hospital02-03-2023 Miscellaneous Notes* Telephone Encounter - Laura Ayala LPN - 12/11/2022 10:12 AM EST Please see pt's Compumatrixt message,pt stated that Flagyl was not sent to her pharmacy. See pended order below and advise. Laura Ayala LPN documented in this encounterSelect Medical Trihealth Rehabilitation Hospital02-01-2023 Instructions* Patient Instructions* Sima Dumont APRN.GYMNASIUM TEACHER - 12/09/2022 7:25 AM EST Continue Revaree [...] avoid scratching at night. documented in this encounterSelect Medical Trihealth Rehabilitation Hospital02-01-2023 History of Present illness Narrative* Sima Dumont APRN.CNP - 12/09/2022 7:01 AM EST Target Network Analyst offered: Patient declines. Dom Avila is a 67 year old female who presents for onset of vaginal discharge, burning and mild itching 2 week ago. Treated with Monistat 7. Now has vaginal discharge only. Treated for COVID with Paxlovid around [place] and read that yeast infection is a [...] external genitalia normal, normal Bartholin's glands, urethra, [place]'s glands, no vulvar lesions, cervix surgically absent, [...] which included preparing to see the patient, zgvm-em-udbb patient care, completing clinical documentation, obtaining and/or reviewing separately obtained history, performing a medically appropriate examination, counseling and educating the pat ient/family/caregiver, and ordering medications, tests, or procedures. documented in this encounterSelect Medical Trihealth Rehabilitation Hospital01-24-2023 Procedure [facility]01-24-2023 Procedure [facility]01-24-2023 Procedure [facility]01-24-2023 Procedure [facility]01-24-2023 History and physical note Author Carson Alcantar [facility] December 01, 2022 11:50am Note Date/Time December 01, 2022 1 1:50am [facility] Medical Records Department [address] [place] [id number] History & Physical Exam 12/01/22 1148 MR#: [id number] Acct: [id number] Name: DOM AVILA Rep #:[id number] : 1955 67 From: Carson Alcantar DO PCP: Dr. Clifton Hung MD Status:[facility] Location: [place] [address] History and Physical Date of Admission: 12/01/22 [...] prn, rarely takes NSAIDs. 09/03/22 labs at [facility]: CBC unremarkable, hgb 13.5, plts 252, amylase 74, lipase 133 high, normal hepatic function panel 09/15/22 CT chest/abd/pelvis at [facility]: subcentimeter hypodense too small to characterize left hepatic lesion Has upcoming CT at [facility] to f/u the liver lesion 09/09/22 RUQ US at [facility]: fatty liver PMH includes DM2, SEBAS, narcolepsy, [...] Mood: euthymic mood Quality Reporting Tobacco Screening ([facility]) Smoking Status: Former smoker Assessment and [...] Clifton Hung MD; Carson Alcantar DO~ Signed [facility] Work Phone: [phone] 531-143101-18-2023 Miscellaneous Notes* Telephone Encounter - Suki Ambrocio LPN - 11/25/2022 12:12 PM EST Patient notified. Suki Ambrocio LPN * Telephone Encounter - Chad Mariee APRN.ELIZABETH - 11/25/2022 12:07 PM EST Please inform pt. that her CT is stable. No new findings. Follow up as scheduled. Thank you. Chad Mariee APRN.[place]IZABETH documented in this encounterSelect Medical Trihealth [facility] Hospital01-18-2023 History of Present illness Narrative* Laura Rivas, [...] 2022 TIME: 1:33 PM documented in this encounterSelect Medical Trihealth [facility] Hospital01-07-2023 History of Present illness Narrative* Shaneka Yang APRN.GYMNASIUM TEACHER - 11/14/2022 1:20 PM EST CC: Patient [...] disturbance 06/2017 Arthritis tendonitis, arthritis 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 (HCC) [...] Date 2D ECHO (EXEP) 06/30/2017 EF=65%, trivial CO, TI and 1+ PI Unchanged from 04/2017 2D ECHO (EXEP) 05/14/2021 EF=60%, 1+ TI, trival CO, AI, PI 2D ECHO (EXEP) 09/16/2021 EF=60%, [...] [Rosuvastatin], Keflex [Cephalexin], Lipitor [Atorvastatin], Lovastatin, and [place] [Hydrocodone-Acetaminophen] MEDICATIONS ezetimibe (ZETIA) 10 mg tablet [...] cancer) Mother Coronary Artery Disease Father 25 CO @ 25. CABG Diabetes Father Diabetes Paternal [...] Patient agreeable to treatment plan. Shaneka Yang APRN.GYMNASIUM TEACHER documented in this encounterSelect Medical Trihealth Rehabilitation Hospital01-04-2023 Instructions* Patient Instructions* Matthew Joaquin - 11/11/2022 [...] (or decreased sensation in your feet) a folded cloth taper should always cut your toenails. Be Careful [...] Go to your health care provider or folded cloth taper to treat these conditions. If ingrown becomes an issue, call for procedure documented in this encounterSelect Medical Trihealth Rehabilitation Hospital01-04-2023 History of Present illness Narrative* Matthew Joaquin [...] disturbance 06/2017 Arthritis tendonitis, arthritis 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 (HCC) [...] Comments myalgia Lovastatin Other: See Comments myalgia [place] [Hydrocodone-* Itching PAST SURGICAL HISTORY Procedure Laterality Date 2D ECHO (EXEP) 06/30/2017 EF=65%, trivial CO, TI and 1+ PI Unchanged from 04/2017 2D ECHO (EXEP) 05/14/2021 EF=60%, 1+ TI, trival CO, AI, PI 2D ECHO (EXEP) 09/16/2021 EF=60%, [...] cancer) Mother Coronary Artery Disease Father 25 CO @ 25. CABG Diabetes Father Diabetes Paternal [...] Objective: Patient presents to clinic ambulating in [facility] Constitutional: Pt is a well developed [...] toenail to L hallux. documented in this encounterSelect Medical Trihealth Rehabilitation Hospital12-27-2022 Instructions* Patient Instructions* Cherise Sifuentes PA-C - 11/03/2022 2:23 PM EST FACT SHEET FOR PATIENTS, PARENTS, AND CAREGIVERS EMERGENCY USE AUTHORIZATION (EUA) OF PAXLOVID FOR CORONAVIRUS DISEASE 2019 (COVID-19) You are being given this Fact Sheet because your healthcare provider believes it is necessary to provide you with PAXLOVID for the treatment of qmdg-lc-vlxjefhf coronavirus disease (COVID-19) caused by the SARS-CoV-2 [...] virus. COVID-19 illnesses have ranged from very rseh-uh-aoefog, including illness resulting in . While information [...] is an investigational medicine used to treat byes-uc-xmvzbhlf COVID-19 in adults and children [12 years [...] of using PAXLOVID to treat people with gwyd-ls-gvzqcgtj COVID-19. The FDA has authorized the emergency use of PAXLOVID for the treatment of adiw-pb-fsjxqegp COVID-19in adults and children [12 years of [...] the medicines you take, including prescription and wbfi-bhv-wtpysgx medicines, vitamins, and herbal supplements. Some medicines [...] (remdesivir) is FDA-approved for the treatment of ynfw-gh-scvzdzbd COVID-19 in certain adults and children. Talk with your doctor to see if Veklury is appropriate for you. Like PAXLOVID, FDA may also allow for the emergency use of other medicines to treat people with COVID-19. Go to https://www.fda.gov/ysphbowzv-tanxaashifio-gjwxmjvfayn/quu-bkeeo-iqbmpulxyv-and- policy-framework/vkcvyepxp-cyg-fiqqqijzbptwf for information on the emergency use of [...] if I am or ? There is economics instructor treating women or mothers with PAXLOVID. For [...] not go away. Report side effects to [employer] at www.fda.gov/medInsider Pagestch or call 1-899-EAQ0008 or you can reportside effects to [employer]. at the contact information provided below. Website Fax number Telephone number www.[employer] How should I store PAXLOVID? Store PAXLOVID [...] (EUA). The EUA is supported by a Gas Manager of Health and Human Service (HHS) declaration that circumstances exist to justify the emergency use of drugs and biological productsduring the COVID-19 pandemic. PAXLOVID for the treatment of zvaj-ri-bnuctotr COVID-19 in adults and children [12 years [...] telephone number provided below. Website Telephone number wwwTutor AssignmentDHXLK73ygtpFlSaraf Foods (4-628-C99-YMAW) You can also go to www.[employer] or call for more information. Pfizer Distributed by [employer] [place] [address] [id number] Revised: 23 January 2022 documented in this encounterSelect Medical Trihealth Rehabilitation Hospital12-27-2022 Miscellaneous Notes* Telephone Encounter - Cherise Sifuentes PA-C - 11/03/2022 2:18 PM EST Called patient to discuss: Nirmatrelvir/Ritonavir (Paxlovid) Eligibility and Patient Discussion [facility] Formulary Restriction Criteria: Adult outpatients 18 [...] my chart message today. documented in this encounterSelect Medical Trihealth Rehabilitation Hospital12-26-2022 History of Present illness Narrative* Shaneka Yang APRN.GYMNASIUM TEACHER - 11/02/2022 1:22 PM EST CC: Patient [...] disturbance 06/2017 Arthritis tendonitis, arthritis 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 (HCC) [...] Date 2D ECHO (EXEP) 06/30/2017 EF=65%, trivial CO, TI and 1+ PI Unchanged from 04/2017 2D ECHO (EXEP) 05/14/2021 EF=60%, 1+ TI, trival CO, AI, PI 2D ECHO (EXEP) 09/16/2021 EF=60%, [...] [Rosuvastatin], Keflex [Cephalexin], Lipitor [Atorvastatin], Lovastatin, and [place] [Hydrocodone-Acetaminophen] MEDICATIONS ezetimibe (ZETIA) 10 mg tablet [...] cancer) Mother Coronary Artery Disease Father 25 CO @ 25. CABG Diabetes Father Diabetes Paternal [...] plan. Shaneka Yang APRN.[place] documented in this encounterSelect Medical Tri[facility] Hospital12-21-2022 Miscellaneous Notes* Telephone Encounter - Jill Alvarez [...] you. 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 CABG Diabetes Father Diabetes Paternal Grandmother Diabetes Maternal Grandfather other (Lung cancer) Brother other (suicide) Son may of been depression Patient Allergies ALLERGIES Allergen Reactions Brilinta [Ticagrelo* Shortness of Breath Crestor [Rosuvastat* Myalgia Keflex [Cephalexin] Other: See Comments facial flushing Lipitor [Atorvastat* Other: See Comments myalgia Lovastatin Other: See Comments myalgia [place] [Hydrocodone-* Itching Current Medications Current Outpatient Medications [...] PNEUMOCOCCAL IMMUNIZATION PPSV 23 7. 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) - ICD9: 414.01, 413.9, ICD10: I25.118 Cont with cardio 8. Ductal carcinoma in situ (DCIS) of left breast - ICD9: 233.0, ICD10: D05.12 Cont with oncology 9. History of hyperparathyroidism - ICD9: V12.29, ICD10: Z86.39 Follow up in 6 months for wellness labs prior.. Cherise Sifuentes PA-C documented in this encounterSelect Medical Trihealth [facility] Hospital11-11-2022 Miscellaneous Notes* Telephone Encounter - Seema Escobar [...] reduced fat in diet. documented in this encounterSelect Medical Trihealth Rehabilitation Hospital11-09-2022 Miscellaneous Notes* Telephone Encounter - JASMYNE Kaur - 09/16/2022 4:07 PM EST Pt notifying provider that she has seen testing results for CT. Please advise. Thank you. JASMYNE Kaur documented in this encounterSelect Medical Trihealth Rehabilitation Hospital11-09-2022 Miscellaneous Notes* Telephone Encounter - Sylwia Hedrick - 09/16/2022 3:26 PM EST Spoke with patient and scheduled CT. Sylwia Hedrick * Telephone Encounter - Suki Ambrocio LPN - 09/16/2022 2:54 PM EST Patient is aware of all information and verbalized understanding. Patient will contact [facility] to schedule. PSS- CT abd/pelvis show a subcentimeter hypodense too small to characterize left hepatic lesion. Will plan to repeat CT in 10-12 weeks. Patient is aware of this information. Please contact patient to schedule CT. She is expecting the call. Suki Ambrocio LPN * Telephone Encounter - Brittni Villar Pss - 09/16/2022 2:16 PM EST Please have patient call the [facility] at [phone] to schedule dx mammogram when relaying information below. Thank you. * Telephone Encounter - Chad Mariee APRN.GYMNASIUM TEACHER - 09/16/2022 9:15 AM EST Please inform pt. that her CT chest shows no acute changes. Radiologist is recommending a L dx mammogram/US to further evaluate ? soft tissue nodular opacity. Please schedule L dx mamm/US soon. CT abd/pelvis show a subcentimeter hypodense too small to characterize left hepatic lesion. Will plan to repeat CT in 10-12 weeks. Thank you. Chad Mariee APRN.GYMNASIUM TEACHER documented in this encounterSelect Medical Trihealth [facility] Hospital11-02-2022 Miscellaneous Notes* Telephone Encounter - Latrice Dunn LPN - 09/09/2022 2:28 PM EDT Pt was notified of results via phone. See TE 09/09/22. Latrice Dunn LPN documented in this encounterSelect Medical Trihealth [facility] Hospital11-02-2022 Miscellaneous Notes* Telephone Encounter - Latrice Dunn [...] start. Cherise Sifuentes PA-C documented in this encounterSelect Medical Trihealth Rehabilitation Hospital11-02-2022 History of Present illness Narrative* Echo Fernandez [...] 09, 2022 8:26 AM documented in this encounterSelect Medical Trihealth [facility] Hospital11-01-2022 History of Present illness Narrative* Jocelyne Sands LPN - 09/08/2022 9:11 AM EDT Patient presented for H. Pylori Breath testing per Dr Hung. Obtained baseline sample at 9:05am. Patient then drank Pranactin-Citric solution. Waited full 15 minutes and obtained second sample at 9:22am. Patient tolerated testing well with no problems. LOT # [id number] EXP 09/07/2024 Jocelyne Sands LPN documented in this encounterSelect Medical Trihealth Rehabilitation Hospital10-31-2022 Miscellaneous Notes* Telephone Encounter - Shakeel Yang MA - 09/07/2022 3:08 PM EDT Patient contacted and scheduled. Given instructions voiced understanding. Shakeel Yang MA documented in this encounterSelect Medical Trihealth Rehabilitation Hospital10-27-2022 History of Present illness Narrative* Clifton Hung [...] melena or hematochezia. Sometimes the stool is door operator in color. No longer has a gal bladder. No recent fevers. Has a CT of the abdomen and pelvis set up for 09/15/2022. Mother with Hx of pancreatic cancer. Past medical history, appointments, medications, allergies reviewed. 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 CABG Diabetes Father Diabetes Paternal Grandmother Diabetes Maternal Grandfather other (Lung cancer) Brother other (suicide) Son may of been depression Patient Allergies ALLERGIES Allergen Reactions Brilinta [Ticagrelo* Shortness of Breath Crestor [Rosuvastat* Myalgia Keflex [Cephalexin] Other: See Comments facial flushing Lipitor [Atorvastat* Other: See Comments myalgia Lovastatin Other: See Comments myalgia [place] [Hydrocodone-* Itching Current Medications Current Outpatient Medications [...] 65+ Clifton Hung MD documented in this encounterSelect Medical Tri[facility] Hospital10-21-2022 Miscellaneous Notes* Telephone Encounter - Shakeel Yang [...] up. Shakeel Yang MA documented in this encounterSelect Medical Trihealth Rehabilitation Hospital10-21-2022 Instructions* Patient Instructions* Sima Dumont APRN.CNP - 08/28/2022 10:40 AM EDT Silicone based lubricant such as Astroglide. Look for one that is hypoallergenic. Continue Revaree. Continue using Aquaphor and minimize use of incontinence pads to protect the skin. documented in this encounterSelect Medical Trihealth Rehabilitation Hospital10-21-2022 History of Present illness Narrative* Sima Dumont, ELINA - 08/28/2022 10:22 AM EDT Target Network Analyst offered: Patient declines. 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 CABG Diabetes Father Diabetes Paternal [...] which included preparing to see the patient, iwpx-po-jiof patient care, completing clinical documentation, obtaining and/or reviewing separately obtained history, performing a medically appropriate examination, and counseling and educating the patient/family/caregiver. documented in this encounterSelect Medical Trihealth [facility] Hospital10-21-2022 History of Present illness Narrative* Chad Mariee APRN.CNP - 08/28/2022 8:25 AM EDT Chief Complaint Patient presents with: Established Patient: 6 MO FOLLOW UP HPI: Dom Avila is a 67 year old female who presents here today for follow up breast cancer. Per Dr. Georges previous note: H/o ddy-lstscvu-ktrnidyrf diabetes mellitus, hypertension, ASCAD, and TIA who [...] breast lumpectomy for DCIS on 04/08/2021 at [facility] Pathology (from [facility]) reveals - ductal carcinoma in situ...,size of DCIS - 1.0 x 0.4 cm...,architectural type - cribriform..., nuclear grade 1-2..., necrosis - present central (expansive comedo necrosis)..., biopsy cavity is 0.5 cm from closest anterior margin (which is skin)..., ER >95%, RI >95% Postoperative course is unremarkable with no [...] visit. Chad Mariee APRN.[place] documented in this encounterSelect Medical Trihealth [facility] Hospital09-07-2022 Miscellaneous Notes* Telephone Encounter - Daniel Hill [...] advise. Daniel Hill Pss documented in this encounterSelect Medical Trihealth [facility] Hospital09-01-2022 Instructions* Patient Instructions* Sima Dumont APRN.CNP - [...] agents from your environment. documented in this encounterSelect Medical Trihealth [facility] Hospital09-01-2022 History of Present illness Narrative* Sima Dumont APRN.CNP - 07/09/2022 7:49 AM EDT Target Network Analyst offered: Patient declines. 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 CABG Diabetes Father Diabetes Paternal [...] external genitalia normal, normal Bartholin's glands, urethra, [place]'s glands, no vulvar lesions, physiologic discharge present, [...] Level: 4 - Moderate documented in this encounterSelect Medical Tri[facility] Hospital08-31-2022 Miscellaneous Notes* Telephone Encounter - Clifton Hung MD - 07/08/2022 1:27 PM EDT Info noted. documented in this encounterSelect Medical Trihealth Rehabilitation Hospital08-26-2022 Miscellaneous Notes* Telephone Encounter - Clifton Hung MD - 07/03/2022 8:06 AM EDT The following approved medication requests have been transmitted electronically. Requested Prescriptions Signed Prescriptions Disp Refills fluconazole (DIFLUCAN) 150 mg tablet 3 tablet 1 Si tab by mouth every other day for 3 doses Clifton Hung MD documented in this encounterSelect Medical Trihealth Rehabilitation Hospital08-23-2022 History of Present illness Narrative* Martha Montoya PA-C - 06/30/2022 3:14 PM EDT This note was created using [employer]. 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 CABG Diabetes Father Diabetes Paternal [...] DETECT Martha Montoya PA-C documented in this encounterSelect Medical Trihealth [facility] Hospital08-09-2022 Miscellaneous Notes* Telephone Encounter - Latriec Dunn LPN - 06/16/2022 12:27 PM EDT Please see pt's message. Latrice Dunn LPN documented in this encounterSelect Medical Trihealth [facility] Hospital04-20-2022 History of Present illness Narrative* Chad Mariee APRN.[place] - 02/25/2022 10:00 AM EDT Chief Complaint Patient presents with: Established Patient: SCP HPI: Dom Avila is a 66 year old female who presents here today for SCP/DCIS. Per Dr. Georges previous note: H/o mlw-ujbirip-kbqyqvegs diabetes mellitus, hypertension, ASCAD, and TIA who [...] breast lumpectomy for DCIS on 04/08/2021 at [facility] Pathology (from [facility]) reveals - ductal carcinoma in situ...,size of DCIS - 1.0 x 0.4 cm...,architectural type - cribriform..., nuclear grade 1-2..., necrosis - present central (expansive comedo necrosis)..., biopsy cavity is 0.5 cm from closest anterior margin (which is skin)..., ER >95%, RI >95% Postoperative course is unremarkable with no [...] visit. Chad Mariee [email or web address].[email or web address] [facility] Miscellaneous Notes* Letter - Mammography Coordinator - 02/23/2022 11:35 AM EDT February 23, 2022 PID: [id number] Dom Avila [address] [place] [address] Dear Ms. Avila, We are pleased to [...] report will be [facility] on [facility] as part of your permanent medical record and are available for your continuing care. Thank you for allowing us to help in meeting your health care needs. Sincerely, Dr. Benedict Interpreting Radiologist [facility] (Normal over 40) documented in this [facility] History of Present illness Narrative* RT Conner(R) [...] 23, 2022 10:17 AM documented in this [facility] Miscellaneous Notes* Telephone Encounter - Kassandra Mitchell Ma - 02/10/2022 1:25 PM EDT Last office visit: 09/26/21 F/u scheduled: 04/03/22 Kassandra Mitchell Ma documented [facility] Evaluation note* Diagnosis Onset Date Resolution Status Essential hypertension chron ic Palpitations chronic Presence of stent in coronary artery December, [facility] Work Phone: [phone]) 458-181102-01-2017 Evaluation note* Diagnosis Onset Date Resolution Status Essential hypertension chron ic Palpitations chronic Presence of stent in coronary artery December, chronic Diarrhea chronic Elevated lipase chronic [facility] Work Phone: Evaluation note* Diagnosis Breast neoplasm, Tis (DCIS), left Encounter for screening mammogram for malignant neoplasm of breast Other screening mammogram [facility]* Diagnosis Breast neoplasm, Tis (DCIS), left- Primary documented in this encounter [facility] note* Diagnosis Onset Date Resolution Status Atherosclerotic heart diseas e of [place] coronary artery without angina pectoris chronic Essential hypertension chron ic Mixed hyperlipidemia chronic Palpitations chronic Presence of stent in coronary artery December, chronic [facility] Work Phone: Evaluation note* Diagnosis Nasal lesion- Primary Other diseases of nasal cavity and sinuses [facility]* Diagnosis Vagina itching- Primary Pruritus of genital organs Dysuria Urinary frequency Superficial dyspareunia Mixed incontinence Mixed incontinence urge and stress (male)(female) Vaginal atrophy Postmenopausal atrophic vaginitis Cystocele, midline Long-term current use of tamoxifen documented [facility]* Diagnosis Vaginal atrophy- Primary Postmenopausal atrophic vaginitis Vulvar dermatitis Other inflammatory disease of cervix, vagina and vulva documented [facility]* Diagnosis Breast neoplasm, Tis (DCIS), left- Primary Encounter for screening mammogram for high-risk patient Nausea Nausea alone Pain of upper abdomen Abdominal pain, other specified site documented in this encounter [facility] note* Diagnosis Epigastric pain- Primary Abdominal pain, epigastric Nausea Nausea alone Need for vaccination Need for prophylactic vaccination and inoculation against unspecified single disease [facility] Diagnosis Epigastric pain Abdominal pain, epigastric [facility]* Diagnosis Abnormal CT of the abdomen- Primary Nonspecific (abnormal) findings on radiological and other examination of abdominal area, including retroperitoneum Liver lesion Other specified disorders of liver Ductal carcinoma in situ (DCIS) of left breast Abnormal CT of the chest Nonspecific (abnormal) findings on radiological and other examination of other intrathoracic organs documented [facility]* Diagnosis Controlled type 2 diabetes mellitus without complication, without long-term current use of insulin (HCC)- Primary Essential hypertension Unspecified essential hypertension Mixed hyperlipidemia Vitamin D deficiency Unspecified vitamin D deficiency Upper back pain Need for vaccination Need for prophylactic vaccination and inoculation against unspecified single disease 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) Ductal carcinoma in situ (DCIS) of left breast History of hyperparathyroidism Personal history of other endocrine, metabolic, and immunity disorders [facility] Diagnosis URI, acute- Primary Acute upper respiratory infections of unspecified site documented [facility]* Diagnosis Other diabetic neurological complication associated with type 2 diabetes mellitus (HCC)- Primary Ingrowing toenail Ingrowing nail [facility]* Diagnosis Sore throat- Primary Acute pharyngitis Acute cough [facility]* Diagnosis Onset Date Resolution Status Atherosclerotic heart diseas e of [place] coronary artery without angina pectoris chronic Essential hypertension chron ic Mixed hyperlipidemia chronic Nausea chronic Palpitations chronic Presence of stent in coronary artery December, chronic Epigastric pain chronic Fatty liver chronic IBS (irritable bowel syndrome) chronic [facility] Work Phone: Evaluation note* Diagnosis Vaginal discharge- Primary Leukorrhea, not specified as infective [facility] Diagnosis Bacterial vaginosis- Primary Vaginitis and vulvovaginitis, unspecified [facility] Diagnosis URI with cough and congestion- Primary [facility]* Diagnosis Onset Date Resolution Status Fatty liver chronic Diarrhea acute [facility] Work Phone: Evaluation note* Diagnosis Bacterial sinusitis- Primary Unspecified sinusitis (chronic) [facility]* Diagnosis RLS (restless legs syndrome) Restless legs syndrome (RLS) [facility]* Diagnosis 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 Encounter for screening mammogram for high-risk patient [facility]* Diagnosis Encounter for Medicare annual wellness exam- Primary Routine general medical examination at a health care facility Controlled type 2 diabetes mellitus without complication, without long-term current use of insulin (HCC) Diabetic eye exam ([facility]) Type II or unspecified type diabetes mellitus without mention of complication, not stated as uncontrolled Essential hypertension Unspecified essential hypertension Mixed hyperlipidemia 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) History [...] Other specified counseling [facility] Diagnosis Onset Date Resolution Status Atherosclerotic heart diseas e of [place] coronary artery without angina pectoris chronic Essential hypertension chron ic Palpitations chronic Diarrhea chronic Elevated lipase chronic [facility] Work Phone: Evaluation note* Diagnosis Dysuria- Primary Urine frequency Urinary frequency Vaginal discharge Leukorrhea, not specified as infective Vulvovaginal discomfort Unspecified symptom associated with female genital organs [facility] Diagnosis Abnormal CT of the abdomen Nonspecific (abnormal) findings on radiological and other examination of abdominal area, including retroperitoneum Liver lesion Other specified disorders of liver Ductal carcinoma in situ (DCIS) of left breast [facility]* Diagnosis Epigastric pain Abdominal pain, epigastric [facility] Breast neoplasm, Tis (DCIS), left Encounter for screening mammogram for high-risk patient [facility] Ductal carcinoma in situ (DCIS) of left breast Abnormal CT of the chest Nonspecific (abnormal) findings on radiological and other examination of other intrathoracic organs [facility] Essential hypertension- Primary Unspecified essential hypertension Controlled type 2 diabetes mellitus without complication, without long-term current use of insulin (HCC) Mixed hyperlipidemia 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 RLS (restless legs syndrome) Restless legs syndrome (RLS) Obstructive sleep apnea on CPAP Obstructive sleep apnea (adult) (pediatric) documented [facility] this encounter [facility]* Diagnosis Vaginal yeast infection- Primary Candidiasis of vulva and vagina Essential hypertension Unspecified essential hypertension [facility] Diagnosis Onset Date Resolution Status Diarrhea chronic Elevated lipase chronic [facility]* Diagnosis Diabetic eye exam (HCC) Type II or unspecified type diabetes mellitus without mention of complication, not stated as uncontrolled documented in this encounter [facility] note* Diagnosis Essential hypertension- Primary Unspecified essential hypertension documented in this encounter [facility] note* Diagnosis Hyperglycemia- Primary Other abnormal glucose Pancreatic insufficiency Other specified disease of pancreas documented in this encounter [facility] note* Diagnosis Dysuria- Primary Urinary frequency Vaginal discharge Leukorrhea, not specified as infective Genitourinary syndrome of menopause documented in this encounter [facility] note* Diagnosis Essential hypertension Unspecified essential hypertension documented in this encounter [facility] note* Diagnosis Ductal carcinoma in situ (DCIS) of left breast Encounter for screening mammogram for high-risk patient [facility]* Diagnosis 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 [facility]* Diagnosis Genitourinary syndrome of menopause- Primary documented [facility]* Diagnosis Pharyngitis, unspecified etiology- Primary Respiratory illness Bacterial sinusitis Unspecified sinusitis (chronic) [facility]* Diagnosis Abnormal urinalysis- Primary Other nonspecific finding on examination of urine documented [facility]* Diagnosis Urinary frequency- Primary [facility]* Diagnosis Lower urinary tract symptoms (LUTS)- Primary Other symptoms involving urinary system Urinary incontinence, mixed Mixed incontinence urge and stress (male)(female) Microscopic hematuria History of UTI Personal history of urinary (tract) infection Abnormal findings on diagnostic imaging of urinary organs Nonspecific (abnormal) findings on radiological and other examination of genitourinary organs documented in this encounter [facility] note* Diagnosis Burn, foot, second degree, left, initial encounter- Primary [facility]* Diagnosis Urinary incontinence, mixed- Primary Mixed incontinence urge and stress (male)(female) Genitourinary syndrome of menopause Microscopic hematuria Adenoma of right adrenal gland [facility]* Diagnosis Controlled type 2 diabetes mellitus without complication, without long-term current use of insulin (HCC)- Primary Essential hypertension Unspecified essential hypertension Mixed hyperlipidemia Meniere disease, 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) Obstructive [...] cystic kidney disease [facility] Diagnosis Controlled type 2 diabetes mellitus without complication, without long-term current use of insulin (HCC)- Primary Essential hypertension Unspecified essential hypertension Mixed hyperlipidemia Meniere disease, 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) Obstructive sleep apnea on CPAP Obstructive sleep apnea (adult) (pediatric) Amaurosis fugax Transient arterial occlusion of retina Seasonal allergic rhinitis, unspecified chronicity, unspecified trigger Vitamin D deficiency Unspecified vitamin D deficiency Adenoma of right adrenal gland- Primary Disorder of adrenal gland (HCC) Unspecified disorder of adrenal glands [facility] Diagnosis Essential hypertension- Primary Unspecified essential [...] type 2 diabetes mellitus (HCC) 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) documented in this [facility] Diagnosis Controlled type 2 diabetes mellitus without complication, without long-term current use of insulin (HCC)- Primary Essential hypertension Unspecified essential hypertension Mixed hyperlipidemia Meniere disease, 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) Obstructive [...] right adrenal gland [facility]* Diagnosis Controlled type 2 diabetes mellitus without complication, without long-term current use of insulin (HCC)- Primary Essential hypertension Unspecified essential hypertension Mixed hyperlipidemia Meniere disease, 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) Obstructive sleep apnea on CPAP Obstructive sleep apnea (adult) (pediatric) Amaurosis fugax Transient arterial occlusion of retina Seasonal allergic rhinitis, unspecified chronicity, unspecified trigger Vitamin D deficiency Unspecified vitamin D deficiency 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) Unspecified disorder of adrenal glands [facility]* Diagnosis Controlled type 2 diabetes mellitus without complication, without long-term current use of insulin (HCC)- Primary Essential hypertension Unspecified essential hypertension Mixed hyperlipidemia Meniere disease, 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) Obstructive sleep apnea on CPAP Obstructive sleep apnea (adult) (pediatric) Amaurosis fugax Transient arterial occlusion of retina Seasonal allergic rhinitis, unspecified chronicity, unspecified trigger Vitamin D deficiency Unspecified vitamin D deficiency 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 Encounter for screening mammogram for high-risk patient [facility] Diagnosis Controlled type 2 diabetes mellitus without complication, without long-term current use of insulin (HCC)- Primary Essential hypertension Unspecified essential hypertension Mixed hyperlipidemia Meniere disease, 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) Obstructive sleep apnea on CPAP Obstructive sleep apnea (adult) (pediatric) Amaurosis fugax Transient arterial occlusion of retina Seasonal allergic rhinitis, unspecified chronicity, unspecified trigger Vitamin D deficiency Unspecified vitamin D deficiency Adenoma of right adrenal gland- Primary documented [facility]* Diagnosis Controlled type 2 diabetes mellitus without complication, without long-term current use of insulin (HCC)- Primary Essential hypertension Unspecified essential hypertension Mixed hyperlipidemia Meniere disease, 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) Obstructive [...] deficiency Mixed hyperlipidemia [facility]* Diagnosis Controlled type 2 diabetes mellitus without complication, without long-term current use of insulin (HCC)- Primary Essential hypertension Unspecified essential hypertension Mixed hyperlipidemia Meniere disease, 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) Obstructive sleep apnea on CPAP Obstructive sleep apnea (adult) (pediatric) Amaurosis fugax Transient arterial occlusion of retina Seasonal allergic rhinitis, unspecified chronicity, unspecified trigger Vitamin D deficiency Unspecified vitamin D deficiency Type 2 diabetes mellitus with hyperlipidemia (HCC) (HCC)- Primary Controlled type 2 diabetes mellitus without complication, without long-term current use of insulin ([facility]) Diabetic eye exam ([facility]) Type II or unspecified type diabetes mellitus without mention of complication, not stated as uncontrolled Essential hypertension Unspecified essential hypertension Mixed hyperlipidemia 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) 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 Vitamin D deficiency Unspecified vitamin D deficiency Right lateral epicondylitis Lateral epicondylitis of elbow Medication management Encounter for long-term (current) use of other medications Gastroesophageal reflux disease without esophagitis Esophageal reflux [facility]* Diagnosis Controlled type 2 diabetes mellitus without complication, without long-term current use of insulin (HCC)- Primary Essential hypertension Unspecified essential hypertension Mixed hyperlipidemia Meniere disease, 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) Obstructive sleep apnea on CPAP Obstructive sleep apnea (adult) (pediatric) Amaurosis fugax Transient arterial occlusion of retina Seasonal allergic rhinitis, unspecified chronicity, unspecified trigger Vitamin D deficiency Unspecified vitamin D deficiency Adenoma of right adrenal gland- Primary [facility]* Diagnosis Controlled type 2 diabetes mellitus without complication, without long-term current use of insulin (HCC)- Primary Essential hypertension Unspecified essential hypertension Mixed hyperlipidemia Meniere disease, 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) Obstructive sleep apnea on CPAP Obstructive sleep apnea (adult) (pediatric) Amaurosis fugax Transient arterial occlusion of retina Seasonal allergic rhinitis, unspecified chronicity, unspecified trigger Vitamin D deficiency Unspecified vitamin D deficiency Acute cough- Primary Essential hypertension Unspecified essential hypertension [facility] Diagnosis Controlled type 2 diabetes mellitus without complication, without long-term current use of insulin (HCC)- Primary Essential hypertension Unspecified essential hypertension Mixed hyperlipidemia Meniere disease, 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) Obstructive sleep apnea on CPAP Obstructive sleep apnea (adult) (pediatric) Amaurosis fugax Transient arterial occlusion of retina Seasonal allergic rhinitis, unspecified chronicity, unspecified trigger Vitamin D deficiency Unspecified vitamin D deficiency COVID-19- Primary [facility] Diagnosis Controlled type 2 diabetes mellitus without complication, without long-term current use of insulin (HCC)- Primary Essential hypertension Unspecified essential hypertension Mixed hyperlipidemia Meniere disease, 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 Obstructive sleep apnea on CPAP Obstructive sleep apnea (adult) (pediatric) Amaurosis fugax Transient arterial occlusion of retina Seasonal allergic rhinitis, unspecified chronicity, unspecified trigger Vitamin D deficiency Unspecified vitamin D deficiency Adenoma of right adrenal gland- Primary Disorder of adrenal gland (HCC) Unspecified disorder of adrenal glands [facility] Diagnosis Controlled type 2 diabetes mellitus without complication, without long-term current use of insulin (HCC)- Primary Essential hypertension Unspecified essential hypertension Mixed hyperlipidemia Meniere disease, 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 Obstructive sleep [...] cystic kidney disease [facility] Diagnosis Controlled type 2 diabetes mellitus without complication, without long-term current use of insulin (HCC)- Primary Essential hypertension Unspecified essential hypertension Mixed hyperlipidemia Meniere disease, 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 Obstructive sleep apnea on CPAP Obstructive sleep apnea (adult) (pediatric) Amaurosis fugax Transient arterial occlusion of retina Seasonal allergic rhinitis, unspecified chronicity, unspecified trigger Vitamin D deficiency Unspecified vitamin D deficiency Ductal carcinoma in situ (DCIS) of left breast Encounter for screening mammogram for high-risk patient documented in this encounter [facility] note* Diagnosis Controlled type 2 diabetes mellitus without complication, without long-term current use of insulin (HCC)- Primary Essential hypertension Unspecified essential hypertension Mixed hyperlipidemia Meniere disease, 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 Obstructive sleep apnea on CPAP Obstructive sleep apnea (adult) (pediatric) Amaurosis fugax Transient arterial occlusion of retina Seasonal allergic rhinitis, unspecified chronicity, unspecified trigger Vitamin D deficiency Unspecified vitamin D deficiency Cold intolerance- Primary Other general symptoms Disorder of adrenal gland (HCC) Unspecified disorder of adrenal glands documented in this encounter [facility] note* Diagnosis Controlled type 2 diabetes mellitus without complication, without long-term current use of insulin (HCC)- Primary Essential hypertension Unspecified essential hypertension Mixed hyperlipidemia Meniere disease, 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 Obstructive sleep apnea on CPAP Obstructive sleep apnea (adult) (pediatric) Amaurosis fugax Transient arterial occlusion of retina Seasonal allergic rhinitis, unspecified chronicity, unspecified trigger Vitamin D deficiency Unspecified vitamin D deficiency 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 Encounter for screening mammogram for high-risk patient documented in this encounter [facility] note* Diagnosis Controlled type 2 diabetes mellitus without complication, without long-term current use of insulin ([facility])- Primary Essential hypertension Unspecified essential hypertension Mixed hyperlipidemia Meniere disease, 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 Obstructive sleep [...] Asymptomatic postmenopausal status documented in this encounter [facility] note* Diagnosis Controlled type 2 diabetes mellitus without complication, without long-term current use of insulin (HCC)- Primary Essential hypertension Unspecified essential hypertension Mixed hyperlipidemia Meniere disease, 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 Obstructive sleep apnea on CPAP Obstructive sleep apnea (adult) (pediatric) Amaurosis fugax Transient arterial occlusion of retina Seasonal allergic rhinitis, unspecified chronicity, unspecified trigger Vitamin D deficiency Unspecified vitamin D deficiency Encounter for Medicare annual wellness exam- Primary Routine [facility] Advance directive discussed with patient Other specified counseling Controlled type 2 diabetes mellitus without complication, without long-term current use of insulin (HCC) Type 2 diabetes mellitus with hyperlipidemia (HCC) Essential hypertension Unspecified essential hypertension Mixed hyperlipidemia Statin intolerance Other drug allergy 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) RLS (restless legs syndrome) Restless legs syndrome (RLS) 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 Pancreatic insufficiency (HCC) Other specified disease of pancreas Vitamin D deficiency Unspecified vitamin D deficiency Hypomagnesemia Disorders of magnesium metabolism History of hyperparathyroidism Personal history of other endocrine, metabolic, and immunity disorders Living will on file at physician's office Encounter for screening examination for other mental health and behavioral disorders Screening for depression documented in this encounter [facility] note* Diagnosis Controlled type 2 diabetes mellitus without complication, without long-term current use of insulin (HCC)- Primary Essential hypertension Unspecified essential hypertension Mixed hyperlipidemia Meniere disease, 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 Obstructive sleep apnea on CPAP Obstructive sleep apnea (adult) (pediatric) Amaurosis fugax Transient arterial occlusion of retina Seasonal allergic rhinitis, unspecified chronicity, unspecified trigger Vitamin D deficiency Unspecified vitamin D deficiency Urinary frequency- Primary Urinary tract infection with hematuria, site unspecified [facility] Additional Instructions This evening you [...] [facility] the [facility] Reason for referral (narrative)* Diagnostic Procedure Only (Routine) - Closed Specialty Diagnoses / Procedures Referred By Jared t Referred To Contact BR IMAGING Diagnoses Breast neoplasm, Tis (DCIS), left Encounter for screening mammogram for malignant neoplasm of breast Procedures GUILLERMINA SCREENING SCREENING MAMMOGRAPHY BI 2-VIEW BREAST INC Alberto Mehta MD [address] [place] [address] Br Imaging [address] [place] [address] Referral ID Status Reason Start Date Expiration Date V isits Requested Visits Authorized [id number] Closed Auto-Generate d Referral 02/23/2022 07/30/2022 1 1 [facility] for referral (narrative)* Diagnostic Procedure Only (Routine) - Authorized Specialty Diagnoses / Procedures Referred By Jared hernández Referred To Contact BR IMAGING Diagnoses Ductal carcinoma in situ (DCIS) of left breast Abnormal CT of the chest Procedures US BREAST LTD LT US BREAST UNI REAL TIME WITH IMAGE LIMITED Chad Mariee APRN.GYMNASIUM TEACHER [address] [place] [address] Br Imaging [address] [place] [address] Referral ID Status Reason Start Date Expiration Date Visits Requested Visits Authorized [id number] Authorized Auto-Generat ed Referral 09/16/2022 10/16/2023 1 1 * Diagnostic Procedure Only (Routine) - Authorized Specialty Diagnoses / Procedures Referred By Jared hernández Referred To Contact BR IMAGING Diagnoses Ductal carcinoma in situ (DCIS) of left breast Abnormal CT of the chest Procedures GUILLERMINA DIAGNOSTIC LT DIAGNOSTIC MAMMOGRAPHY COMPUTER-AIDED DETCJ UNI Chad Mariee APRN.GYMNASIUM TEACHER [address] [place] [address] Br Imaging [address] [place] [address] Referral ID Status Reason Start Date Expiration Date Visits Requested Visits Authorized [id number] Authorized Auto-Generat ed Referral 09/16/2022 10/16/2023 1 1 * MRI/CT (Routine) - Pending Review Specialty Diagnoses / Procedures Referred By Jared hernández Referred To Contact CT IMAGING Diagnoses Abnormal CT of the abdomen Liver 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 Procedures CT ABD/PEL W IVCON CT ABD & PELVIS W/CONTRAST Chad Mariee APRN.GYMNASIUM TEACHER [address] [place] [address] Ct Imaging Referral ID Status Reason Start Date Expiration Date Visits Requested Visits Authorized [id number] Pending Review Auto-Generat ed Referral 09/16/2022 10/16/2023 1 1 [facility] for referral (narrative)* Diagnostic Procedure Only (Routine) - Pending Review Specialty Diagnoses / Procedures Referred By Jared hernández Referred To Contact BR IMAGING Diagnoses Ductal carcinoma in situ (DCIS) of left breast Encounter for screening mammogram for high-risk patient Procedures GUILLERMINA SCREENING W ANGELA SCREENING DIGITAL BREAST TOMOSYNTHESIS BI SCREENING MAMMOGRAPHY BI 2-VIEW BREAST INC CAD Chad Mariee APRN.GYMNASIUM TEACHER [address] [place] [address] Br Imaging [address] [place] [address] Referral ID Status Reason Start Date Expiration Date Visits Requested Visits Authorized [id number] Pending Review Auto-Generat ed Referral 02/26/2023 03/27/2024 1 1 [facility] for referral (narrative)* Diagnostic Procedure Only (Routine) - Closed Specialty Diagnoses / Procedures Referred By Jared hernández Referred To Contact CT IMAGING Diagnoses Abnormal CT of the abdomen Liver 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 Procedures CT ABD/PEL W IVCON CT ABD & PELVIS W/CONTRAST Chad Mariee APRN.GYMNASIUM TEACHER [address] [place] [address] [place] [address] Referral ID Status Reason Start Date Expiration Date V isits Requested Visits Authorized [id number] Closed Auto-Generate d Referral 11/25/2022 12/25/2022 2 2 [facility] for referral (narrative)* Diagnostic Procedure Only (Routine) - Closed Specialty Diagnoses / Procedures Referred By Contac t Referred To Contact US IMAGING Diagnoses Epigastric pain Procedures US ABD RT UPPER QUADRANT US ABDOMINAL REAL TIME W/IMAGE LIMITED Clifton Hung MD [address] [place] [address] [place] [address] Referral ID Status Reason Start Date Expiration Date V isits Requested Visits Authorized [id number] Closed Auto-Generate d Referral 09/03/2022 10/03/2023 1 1 [facility] for referral (narrative)* Diagnostic Procedure Only (Routine) - Closed Specialty Diagnoses / Procedures Referred By Contac t Referred To Contact BR IMAGING Diagnoses Breast neoplasm, Tis (DCIS), left Encounter for screening mammogram for high-risk patient Procedures GUILLERMINA SCREENING SCREENING MAMMOGRAPHY BI 2-VIEW BREAST INC CAD Chad Mariee APRN.CNP [address] [place] [address] Br Imaging [address] [facility] [place] [address] Referral ID Status Reason Start Date Expiration Date V isits Requested Visits Authorized [id number] Closed Auto-Generate d Referral 08/28/2022 09/27/2023 1 1 [facility] for referral (narrative)* Diagnostic Procedure Only (Routine) - Closed Specialty Diagnoses / Procedures Referred By Contac t Referred To Contact BR IMAGING Diagnoses Ductal carcinoma in situ (DCIS) of left breast Encounter for screening mammogram for high-risk patient Procedures GUILLERMINA SCREENING W ANGELA SCREENING DIGITAL BREAST TOMOSYNTHESIS BI SCREENING MAMMOGRAPHY BI 2-VIEW BREAST INC CAD [facility], INTERVENTIONAL PAIN PHYSICIAN.GYMNASIUM TEACHER [address] [place] [address] Br Imaging [address] [place] [address] Referral ID Status Reason Start Date Expiration Date V isits Requested Visits Authorized [id number] Closed Auto-Generate d Referral 02/26/2023 03/27/2024 1 1 [facility] for referral (narrative)* Diagnostic Procedure Only (Routine) - Authorized Specialty Diagnoses / Procedures Referred By Jared hernández Referred To Contact BR IMAGING Diagnoses Ductal carcinoma in situ (DCIS) of left breast Encounter for screening mammogram for high-risk patient Procedures GUILLERMINA SCREENING W ANGELA SCREENING DIGITAL BREAST TOMOSYNTHESIS BI SCREENING MAMMOGRAPHY BI 2-VIEW BREAST INC [facility], INTERVENTIONAL PAIN PHYSICIAN.GYMNASIUM TEACHER [address] [place] [address] Br Imaging [address] [address] Referral ID Status Reason Start Date Expiration Date Visits Requested Visits Authorized [id number] Authorized Auto-Generat ed Referral 03/14/2025 10/14/2025 1 1 [facility] for visit Narrative* Diagnostic Procedure Only (Routine) - Closed Specialty Diagnoses / Procedures Referred By Jared hernández Referred To Contact BR IMAGING Diagnoses Breast neoplasm, Tis (DCIS), left Encounter for screening mammogram for malignant neoplasm of breast Procedures GUILLERMINA SCREENING SCREENING MAMMOGRAPHY BI 2-VIEW BREAST INC Alberto Mehta MD [address] [place] [address] Br Imaging [address] [place] [address] Referral ID Status Reason Start Date Expiration Date V isits Requested Visits Authorized [id number] Closed Auto-Generate d Referral 02/23/2022 07/30/2022 1 1 [facility] for visit Narrative* Diagnostic Procedure Only (Routine) - Closed Specialty Diagnoses / Procedures Referred By Jared t Referred To Contact BR IMAGING Diagnoses Breast neoplasm, Tis (DCIS), left Encounter for screening mammogram for high-risk patient Procedures GUILLERMINA SCREENING SCREENING MAMMOGRAPHY BI 2-VIEW BREAST INC CAD Chad Mariee, TERRA.GYMNASIUM TEACHER [address] [place] [address] Br Imaging [address] [place] [address] Referral ID Status Reason Start Date Expiration Date V isits Requested Visits Authorized [id number] Closed Auto-Generate d Referral 08/28/2022 09/27/2023 1 1 [facility] for visit Narrative* Diagnostic Procedure Only (Routine) - Closed Specialty Diagnoses / Procedures Referred By Jared hernández Referred To Contact CT IMAGING Diagnoses Abnormal CT of the abdomen Liver 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 Procedures CT ABD/PEL W IVCON CT ABD & PELVIS W/CONTRAST Chad Mariee APRN.GYMNASIUM TEACHER [address] [place] [address] Ct Imaging [facility]95 Referral ID Status Reason Start Date Expiration Date V isits Requested Visits Authorized [id number] Closed Auto-Generate d Referral 11/25/2022 12/25/2022 2 2 [facility] for visit Narrative* Diagnostic Procedure Only (Routine) - Closed Specialty Diagnoses / Procedures Referred By Jared t Referred To Contact BR IMAGING Diagnoses Ductal carcinoma in situ (DCIS) of left breast Abnormal CT of the chest Procedures GUILLERMINA DIAGNOSTIC LT DIAGNOSTIC MAMMOGRAPHY COMPUTER-AIDED DETCJ UNI Chad Mariee, TERRA.GYMNASIUM TEACHER [address] [place] [address] Br Imaging [address] [place] [address] Referral ID Status Reason Start Date Expiration Date V isits Requested Visits Authorized [id number] Closed Auto-Generate d Referral 09/16/2022 10/16/2023 1 1 [facility] for visit Narrative* Diagnostic Procedure Only (Routine) - Closed Specialty Diagnoses / [facility] To [facility] BR [facility] Diagnoses Ductal carcinoma in situ (DCIS) of left breast Encounter for screening mammogram for high-risk patient Procedures GUILLERMINA SCREENING W ANGELA SCREENING DIGITAL BREAST TOMOSYNTHESIS BI SCREENING MAMMOGRAPHY BI 2-VIEW BREAST INC [facility] [place], INTERVENTIONAL PAIN PHYSICIAN.GYMNASIUM TEACHER [address] [place] [address] Br Imaging [address] [place] [address] Referral ID Status Reason Start Date Expiration Date V isits Requested Visits Authorized [id number] Closed Auto-Generate d Referral 02/26/2023 03/27/2024 1 1 [facility] Diagnostic Procedure Only (Routine) - Closed Specialty Diagnoses / Procedures Referred By Contac t Referred To Contact BR IMAGING Diagnoses Ductal carcinoma in situ (DCIS) of left breast Encounter for screening mammogram for high-risk patient Procedures GUILLERMINA SCREENING W ANGELA SCREENING DIGITAL BREAST TOMOSYNTHESIS BI SCREENING MAMMOGRAPHY BI 2-VIEW BREAST INC [facility], INTERVENTIONAL PAIN PHYSICIAN.GYMNASIUM TEACHER [address] [place] [address] Phone: tel: fax: BR IMAGING [address] [place] [address] Referral ID Status Reason Start Date Expiration Date V isits Requested Visits Authorized [id number] Closed Auto-Generate d Referral 03/14/2025 10/14/2025 1 1 [facility] Advance Directives No Advanced Directives Records FoundDocuments on File Type Date Recorded Patient Patient Intake Coordinator Expl anation Advance Directive(s) 06/24/2021 1:42 PM Advance Directive(s) 08/09/2018 8:15 AM Documents on File Type Date Recorded Patient Patient Intake Coordinator Expl anation Advance Directive(s) 06/24/2021 1:42 PM Advance Directive(s) 08/09/2018 8:15 AM Advance Directive Response Recorded Date/ Time Advance Directives Yes October 12, 2018 8:15am Living Will No May 05, 2021 10:00am Power of Plate Glass Polisher No May 05 10:00am Documents on File Type Date Recorded Patient Patient Intake Coordinator Expl anation Advance Directive(s) 04/07/2022 12:26 PM Documents on File Type Date Recorded Patient Patient Intake Coordinator Expl anation Advance Directive(s) 04/07/2022 12:26 PM Advance Directive Response Recorded Date/ Time Advance Directives Yes October 12, 2018 7:15am Living Will Yes November 30 12:39pm Power of Plate Glass Polisher Yes November 30, 2022 12:39pm Advance Directive Response Recorded Date/ Time Name of Medical Power of Plate Glass Polisher SPOUSE November 30, 2022 12:39pm Advance Directives Yes October 12, 2018 7:15am Living Will Yes November 30 12:39pm Power of Plate Glass Polisher Yes November 30, 2022 12:39pm Advance Directive Response Recorded Date/ Time Name of Medical Power of Plate Glass Polisher SPOUSE November 30, 2022 1:39pm Advance Directives Yes October 12, 2018 8:15am Living Will Yes November 30 1:39pm Power of Plate Glass Polisher Yes November 30, 2022 1:39pm Advance Directive Response Recorded Date/ Time Advance Directives Yes October 12, 2018 8:15am Living Will Yes November 30 1:39pm Power of Plate Glass Polisher Yes November 30, 2022 1:39pm Advance Directive Response Recorded Date/ Time Name of Medical Power of Plate Glass Polisher recalled September 11, 2023 2:34pm Advance Directives Yes October 12, 2018 7:15am Living Will Yes September 11 2:34pm Power of Plate Glass Polisher Yes September 11, 2023 2:34pm Advance Directive Response Recorded Date/ Time Name of Medical Power of Plate Glass Polisher recalled September 11, 2023 2:34pm Name of Medical Power of Plate Glass Polisher Carmella December 22, 2023 1:32pm Advance Directives Yes October 12, 2018 7:15am Living Will Yes December 22 024 1:32pm Power of Plate Glass Polisher Yes December 22, 2023 1:32pm Advance Directive Response Recorded Date/ Time Name of Medical Power of Plate Glass Polisher recalled September 11, 2023 2:34pm Name of Medical Power of Plate Glass Polisher Carmella December 22, 2023 1:32pm Name of Medical Power of Plate Glass Polisher carmella s/o December 28, 2023 12:43am Advance Directives Yes October 12, 2018 7:15am Living Will Yes December 28, 024 12:43am Power of Plate Glass Polisher Yes December 28, 2023 12:43am Chief Complaint and Reason for Visit Chief Complaint 6 m fu E-ORDER Reason for Visit Atherosclerotic hear t disease of mohegan coronary artery without angina pectoris Essential hypertension Mixed hyperlipidemia Palpitations Presence of stent in coronary artery Chief Complaint 6 m fu E-ORDER HOLTER PALPS SOB.PVC,CAD HX SOB.PVC,CAD HX Reason for Visit Atherosclerotic hear t disease of mohegan coronary artery without angina pectoris Essential hypertension Mixed hyperlipidemia Palpitations Presence of stent in coronary artery Chief Complaint 3 M FU Consult E ORDERS E ORDERS Reason for Visit Atherosclerotic hear t disease of mohegan coronary artery without angina pectoris Essential hypertension [...] for Visit Atherosclerotic hear t disease of mohegan coronary artery without angina pectoris Essential hypertension [...] DIAGNOSTIC COMPUTED TOMOGRAPHY THORAX W/CONTRAST Chad Mariee, INTERVENTIONAL PAIN PHYSICIAN.GYMNASIUM TEACHER [address] [place] [address] Ct Imaging Referral ID Status Reason Start Date Expiration Date Visits Requested Visits Authorized [id number] Pending Review Auto-Generat ed Referral 2 09/27/2023 1 1 Specialty Diagnoses / Procedures Referred By Contac t Referred To Contact CT IMAGING Diagnoses Breast neoplasm, Tis (DCIS), left Nausea Pain of upper abdomen Procedures CT ABD/PEL W IVCON CT ABD & PELVIS W/CONTRAST Chad Mariee, TERRA.GYMNASIUM TEACHER [address] [place] [address] Ct Imaging Referral ID Status Reason Start Date Expiration Date Visits Requested Visits Authorized [id number] Pending Review Auto-Generat ed Referral 2 09/27/2023 1 1 Specialty Diagnoses / Procedures Referred By Contac t Referred To Contact BR IMAGING Diagnoses Breast neoplasm, Tis (DCIS), left Encounter for screening mammogram for high-risk patient Procedures GUILLERMINA SCREENING SCREENING MAMMOGRAPHY BI 2-VIEW BREAST INC CAD Chad Mariee, TERRA.GYMNASIUM TEACHER [address] [place] [address] Br Imaging [address] [place] [address] Referral ID Status Reason Start Date Expiration Date Visits Requested Visits Authorized [id number] Authorized Auto-Generat ed Referral 2 09/27/2023 1 1 Specialty Diagnoses / Procedures Referred By Contac t Referred To Contact Gastroenterology Diagnoses Nausea Epigastric pain Procedures CONSULT TO GASTROENTEROLOGY OFFICE/OUTPATIENT [facility] MDM 60-74 MINUTES Clifton Hung MD [address] [place] [address] Referral ID Status Reason Start Date Expiration Date Visits Requested Visits Authorized [id number] Authorized PCP Requested Referral 2 09/03/2023 1 1 Specialty Diagnoses / Procedures Referred By Contac t Referred To Contact US IMAGING Diagnoses Epigastric pain Procedures US ABD RT UPPER QUADRANT US ABDOMINAL REAL TIME W/IMAGE LIMITED Clifton Hung MD [address] [place] [address] Us Imaging Referral ID Status Reason Start Date Expiration Date Visits Requested Visits Authorized [id number] Authorized Auto-Generat ed Referral 10/03/2023 1 1 Specialty Diagnoses / Procedures Referred By Contac t Referred To Contact Urology Diagnoses Urinary frequency Procedures CONSULT TO UROLOGY OFFICE/OUTPATIENT [facility] 60 MINUTES Francine Madrid APRN.GYMNASIUM TEACHER [address] [place] [address] Referral ID Status Reason Start Date Expiration Date Visits Requested Visits Authorized [id number] Authorized PCP Requested Referral 04/20/2024 04/20/2025 1 1 Specialty Diagnoses / Procedures Referred By Contac t Referred To Contact Endocrinology Diagnoses Adenoma of right adrenal gland Procedures CONSULT TO ENDOCRINOLOGY OFFICE/OUTPATIENT [facility] 60 MINUTES Ori Landin, DO [address] [place] [address] Referral ID Status Reason Start Date Expiration Date Visits Requested Visits Authorized [id number] Authorized PCP Requested Referral 05/23/2024 05/23/2025 1 1 Specialty Diagnoses / Procedures Referred By Contac t Referred To Contact CT IMAGING Diagnoses 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) Procedures CT ADRENAL WO/W IVCON CT ABDOMEN W & W/O CONTRAST Alexa Matute MD [address] [place] [address] [place] [address] Referral ID Status Reason Start Date Expiration Date Visits Requested Visits Authorized [id number] Pending Review Auto-Generat ed Referral 07/11/2024 08/10/2025 1 1 Referral ID Status Reason Start Date Expiration Date V isits Requested Visits Authorized [id number] Closed Auto-Generate d Referral 08/15/2024 10/14/2024 1 [...] or prosecute any alcohol or drug abuse patient.[facility] the event this information is protected by the Federal Confidentiality of Alcohol and Drug Abuse Patient Records regulations: The Federal rules restrict any use of the information to criminally investigate or prosecute any alcohol or drug abuse patient.[facility] the event this information is protected by the Federal Confidentiality of Alcohol and Drug Abuse Patient Records regulations: The Federal rules restrict any use of the information to criminally investigate or prosecute any alcohol or drug abuse patient.[facility] Hospital[facility] the event this information is protected by the Federal Confidentiality of Alcohol and Drug Abuse Patient Records regulations: The Federal rules restrict any use of the information to criminally investigate or prosecute any alcohol or drug abuse patient.[facility] Hospital[facility] the event this information is protected by the Federal Confidentiality of Alcohol and Drug Abuse Patient Records regulations: The Federal rules restrict any use of the information to criminally investigate or prosecute any alcohol or drug abuse patient.[facility] Hospital[facility] the event this information is protected by the Federal Confidentiality of Alcohol and Drug Abuse Patient Records regulations: The Federal rules restrict any use of the information to criminally investigate or prosecute any alcohol or drug abuse patient.[facility] Hospital[facility] the event this information is protected by the Federal Confidentiality of Alcohol and Drug Abuse Patient Records regulations: The Federal rules restrict any use of the information to criminally investigate or prosecute any alcohol or drug abuse patient.[facility] Hospital[facility] the event this information is protected by the Federal Confidentiality of Alcohol and Drug Abuse Patient Records regulations: The Federal rules restrict any use of the information to criminally investigate or prosecute any alcohol or drug abuse patient.[facility] Hospital[facility] the event this information is protected by the Federal Confidentiality of Alcohol and Drug Abuse Patient Records regulations: The Federal rules restrict any use of the information to criminally investigate or prosecute any alcohol or drug abuse patient.[facility] HospitalIn the event this information is protected by the Federal Confidentiality of Alcohol and Drug Abuse Patient Records regulations: The Federal rules restrict any use of the information to criminally investigate or prosecute any alcohol or drug abuse patient.[facility] [facility]In the event this information is protected by the Federal Confidentiality of Alcohol and Drug Abuse Patient Records regulations: The Federal rules restrict any use of the information to criminally investigate or prosecute any alcohol or drug abuse patient.[facility]In the event this information is protected by the Federal Confidentiality of Alcohol and Drug Abuse Patient Records regulations: The Federal rules restrict any use of the information to criminally investigate or prosecute any alcohol or drug abuse patient.[facility] HospitalIn the event this information is protected by the Federal Confidentiality of Alcohol and Drug Abuse Patient Records regulations: The Federal rules restrict any use of the information to criminally investigate or prosecute any alcohol or drug abuse patient.[facility] HospitalIn the event this information is protected by the Federal Confidentiality of Alcohol and Drug Abuse Patient Records regulations: The Federal rules restrict any use of the information to criminally investigate or prosecute any alcohol or drug abuse patient.[facility] HospitalIn the event this information is protected by the Federal Confidentiality of Alcohol and Drug Abuse Patient Records regulations: The Federal rules restrict any use of the information to criminally investigate or prosecute any alcohol or drug abuse patient.[facility] HospitalIn the event this information is protected by the Federal Confidentiality of Alcohol and Drug Abuse Patient Records regulations: The Federal rules restrict any use of the information to criminally investigate or prosecute any alcohol or drug abuse patient.[facility] HospitalIn the event this information is protected by the Federal Confidentiality of Alcohol and Drug Abuse Patient Records regulations: The Federal rules restrict any use of the information to criminally investigate or prosecute any alcohol or drug abuse patient.[facility] HospitalIn the event this information is protected by the Federal Confidentiality of Alcohol and Drug Abuse Patient Records regulations: The Federal rules restrict any use of the information to criminally investigate or prosecute any alcohol or drug abuse patient.[facility] HospitalIn the event this information is protected by the Federal Confidentiality of Alcohol and Drug Abuse Patient Records regulations: The Federal rules restrict any use of the information to criminally investigate or prosecute any alcohol or drug abuse patient.[facility] HospitalIn the event this information is protected by the Federal Confidentiality of Alcohol and Drug Abuse Patient Records regulations: The Federal rules restrict any use of the information to criminally investigate or prosecute any alcohol or drug abuse patient.[facility] HospitalIn the event this information is protected by the Federal Confidentiality of Alcohol and Drug Abuse Patient Records regulations: The Federal rules restrict any use of the information to criminally investigate or prosecute any alcohol or drug abuse patient.[facility] HospitalIn the event this information is protected by the Federal Confidentiality of Alcohol and Drug Abuse Patient Records regulations: The Federal rules restrict any use of the information to criminally investigate or prosecute any alcohol or drug abuse patient.[facility] HospitalIn the event this information is protected by the Federal Confidentiality of Alcohol and Drug Abuse Patient Records regulations: The Federal rules restrict any use of the information to criminally investigate or prosecute any alcohol or drug abuse patient.[facility] the event this information is protected by the Federal Confidentiality of Alcohol and Drug Abuse Patient Records regulations: The Federal rules restrict any use of the information to criminally investigate or prosecute any alcohol or drug abuse patient.[facility] HospitalIn the event this information is protected by the Federal Confidentiality of Alcohol and Drug Abuse Patient Records regulations: The Federal rules restrict any use of the information to criminally investigate or prosecute any alcohol or drug abuse patient.[facility] HospitalIn the event this information is protected [...] or prosecute any alcohol or drug abuse patient.[facility] HospitalIn the event this information is protected by the Federal Confidentiality of Alcohol and Drug Abuse Patient Records regulations: The Federal rules restrict any use of the information to criminally investigate or prosecute any alcohol or drug abuse patient.[facility] HospitalIn the event this information is protected by the Federal Confidentiality of Alcohol and Drug Abuse Patient Records regulations: The Federal rules restrict any use of the information to criminally investigate or prosecute any alcohol or drug abuse patient.[facility] HospitalIn the event this information is protected by the Federal Confidentiality of Alcohol and Drug Abuse Patient Records regulations: The Federal rules restrict any use of the information to criminally investigate or prosecute any alcohol or drug abuse patient.[facility] HospitalIn the event this information is protected by the Federal Confidentiality of Alcohol and Drug Abuse Patient Records regulations: The Federal rules restrict any use of the information to criminally investigate or prosecute any alcohol or drug abuse patient.[facility]In the event this information is protected by the Federal Confidentiality of Alcohol and Drug Abuse Patient Records regulations: The Federal rules restrict any use of the information to criminally investigate or prosecute any alcohol or drug abuse patient.[facility] HospitalIn the event this information is protected by the Federal Confidentiality of Alcohol and Drug Abuse Patient Records regulations: The Federal rules restrict any use of the information to criminally investigate or prosecute any alcohol or drug abuse patient.[facility] HospitalIn the event this information is protected by the Federal Confidentiality of Alcohol and Drug Abuse Patient Records regulations: The Federal rules restrict any use of the information to criminally investigate or prosecute any alcohol or drug abuse patient.[facility] HospitalIn the event this information is protected by the Federal Confidentiality of Alcohol and Drug Abuse Patient Records regulations: The Federal rules restrict any use of the information to criminally investigate or prosecute any alcohol or drug abuse patient.[facility] HospitalIn the event this information is protected by the Federal Confidentiality of Alcohol and Drug Abuse Patient Records regulations: The Federal rules restrict any use of the information to criminally investigate or prosecute any alcohol or drug abuse patient.[facility]In the event this information is protected by the Federal Confidentiality of Alcohol and Drug Abuse Patient Records regulations: The Federal rules restrict any use of the information to criminally investigate or prosecute any alcohol or drug abuse patient.[facility] HospitalIn the event this information is protected by the Federal Confidentiality of Alcohol and Drug Abuse Patient Records regulations: The Federal rules restrict any use of the information to criminally investigate or prosecute any alcohol or drug abuse patient.[facility]In the event this information is protected by the Federal Confidentiality of Alcohol and Drug Abuse Patient Records regulations: The Federal rules restrict any use of the information to criminally investigate or prosecute any alcohol or drug abuse patient.[facility] HospitalIn the event this information is protected by the Federal Confidentiality of Alcohol and Drug Abuse Patient Records regulations: The Federal rules restrict any use of the information to criminally investigate or prosecute any alcohol or drug abuse patient.[facility]In the event this information is protected by the Federal Confidentiality of Alcohol and Drug Abuse Patient Records regulations: The Federal rules restrict any use of the information to criminally investigate or prosecute any alcohol or drug abuse patient.[facility]In the event this information is protected by the Federal Confidentiality of Alcohol and Drug Abuse Patient Records regulations: The Federal rules restrict any use of the information to criminally investigate or prosecute any alcohol or drug abuse patient.[facility]In the event this information is protected by the Federal Confidentiality of Alcohol and Drug Abuse Patient Records regulations: The Federal rules restrict any use of the information to criminally investigate or prosecute any alcohol or drug abuse patient.[facility]In the event this information is protected by the Federal Confidentiality of Alcohol and Drug Abuse Patient Records regulations: The Federal rules restrict any use of the information to criminally investigate or prosecute any alcohol or drug abuse patient.[facility]In the event this information is protected by the Federal Confidentiality of Alcohol and Drug Abuse Patient Records regulations: The Federal rules restrict any use of the information to criminally investigate or prosecute any alcohol or drug abuse patient.[facility]In the event this information is protected by the Federal Confidentiality of Alcohol and Drug Abuse Patient Records regulations: The Federal rules restrict any use of the information to criminally investigate or prosecute any alcohol or drug abuse patient.[facility]In the event this information is protected by the Federal Confidentiality of Alcohol and Drug Abuse Patient Records regulations: The Federal rules restrict any use of the information to criminally investigate or prosecute any alcohol or drug abuse patient.[facility]In the event this information is protected by the Federal Confidentiality of Alcohol and Drug Abuse Patient Records regulations: The Federal rules restrict any use of the information to criminally investigate or prosecute any alcohol or drug abuse patient.[facility]In the event this information is protected by the Federal Confidentiality of Alcohol and Drug Abuse Patient Records regulations: The Federal rules restrict any use of the information to criminally investigate or prosecute any alcohol or drug abuse patient.[facility]In the event this information is protected by the Federal Confidentiality of Alcohol and Drug Abuse Patient Records regulations: The Federal rules restrict any use of the information to criminally investigate or prosecute any alcohol or drug abuse patient.[facility]In the event this information is protected by the Federal Confidentiality of Alcohol and Drug Abuse Patient Records regulations: The Federal rules restrict any use of the information to criminally investigate or prosecute any alcohol or drug abuse patient.[facility]In the event this information is protected by the Federal Confidentiality of Alcohol and Drug Abuse Patient Records regulations: The Federal rules restrict any use of the information to criminally investigate or prosecute any alcohol or drug abuse patient.[facility]In the event this information is protected by the Federal Confidentiality of Alcohol and Drug Abuse Patient Records regulations: The Federal rules restrict any use of the information to criminally investigate or prosecute any alcohol or drug abuse patient.[facility]In the event this information is protected by the Federal Confidentiality of Alcohol and Drug Abuse Patient Records regulations: The Federal rules restrict any use of the information to criminally investigate or prosecute any alcohol or drug abuse patient.[facility]In the event this information is protected by the Federal Confidentiality of Alcohol and Drug Abuse Patient Records regulations: The Federal rules restrict any use of the information to criminally investigate or prosecute any alcohol or drug abuse patient.[facility]In the event this information is protected by the Federal Confidentiality of Alcohol and Drug Abuse Patient Records regulations: The Federal rules restrict any use of the information to criminally investigate or prosecute any alcohol or drug abuse patient.[facility]In the event this information is protected by the Federal Confidentiality of Alcohol and Drug Abuse Patient Records regulations: The Federal rules restrict any use of the information to criminally investigate or prosecute any alcohol or drug abuse patient.[facility]In the event this information is protected by the Federal Confidentiality of Alcohol and Drug Abuse Patient Records regulations: The Federal rules restrict any use of the information to criminally investigate or prosecute any alcohol or drug abuse patient.[facility]In the event this information is protected by the Federal Confidentiality of Alcohol and Drug Abuse Patient Records regulations: The Federal rules restrict any use of the information to criminally investigate or prosecute any alcohol or drug abuse patient.[facility]In the event this information is protected by the Federal Confidentiality of Alcohol and Drug Abuse Patient Records regulations: The Federal rules restrict any use of the information to criminally investigate or prosecute any alcohol or drug abuse patient.[facility]In the event this information is protected by the Federal Confidentiality of Alcohol and Drug Abuse Patient Records regulations: The Federal rules restrict any use of the information to criminally investigate or prosecute any alcohol or drug abuse patient.[facility]In the event this information is protected by the Federal Confidentiality of Alcohol and Drug Abuse Patient Records regulations: The Federal rules restrict any use of the information to criminally investigate or prosecute any alcohol or drug abuse patient.[facility]In the event this information is protected by the Federal Confidentiality of Alcohol and Drug Abuse Patient Records regulations: The Federal rules restrict any use of the information to criminally investigate or prosecute any alcohol or drug abuse patient.[facility]In the event this information is protected by the Federal Confidentiality of Alcohol and Drug Abuse Patient Records regulations: The Federal rules restrict any use of the information to criminally investigate or prosecute any alcohol or drug abuse patient.[facility]In the event this information is protected by the Federal Confidentiality of Alcohol and Drug Abuse Patient Records regulations: The Federal rules restrict any use of the information to criminally investigate or prosecute any alcohol or drug abuse patient.[facility]In the event this information is protected by the Federal Confidentiality of Alcohol and Drug Abuse Patient Records regulations: The Federal rules restrict any use of the information to criminally investigate or prosecute any alcohol or drug abuse patient.[facility]In the event this information is protected by the Federal Confidentiality of Alcohol and Drug Abuse Patient Records regulations: The Federal rules restrict any use of the information to criminally investigate or prosecute any alcohol or drug abuse patient.[facility]In the event this information is protected by the Federal Confidentiality of Alcohol and Drug Abuse Patient Records regulations: The Federal rules restrict any use of the information to criminally investigate or prosecute any alcohol or drug abuse patient.[facility]In the event this information is protected by the Federal Confidentiality of Alcohol and Drug Abuse Patient Records regulations: The Federal rules restrict any use of the information to criminally investigate or prosecute any alcohol or drug abuse patient.[facility]In the event this information is protected by the Federal Confidentiality of Alcohol and Drug Abuse Patient Records regulations: The Federal rules restrict any use of the information to criminally investigate or prosecute any alcohol or drug abuse patient.[facility]In the event this information is protected by the Federal Confidentiality of Alcohol and Drug Abuse Patient Records regulations: The Federal rules restrict any use of the information to criminally investigate or prosecute any alcohol or drug abuse patient.[facility]In the event this information is protected by the Federal Confidentiality of Alcohol and Drug Abuse Patient Records regulations: The Federal rules restrict any use of the information to criminally investigate or prosecute any alcohol or drug abuse patient.[facility]In the event this information is protected by the Federal Confidentiality of Alcohol and Drug Abuse Patient Records regulations: The Federal rules restrict any use of the information to criminally investigate or prosecute any alcohol or drug abuse patient.[facility] the event this information is protected by the Federal Confidentiality of Alcohol and Drug Abuse Patient Records regulations: The Federal rules restrict any use of the information to criminally investigate or prosecute any alcohol or drug abuse patient.[facility]In the event this information is protected by the Federal Confidentiality of Alcohol and Drug Abuse Patient Records regulations: The Federal rules restrict any use of the information to criminally investigate or prosecute any alcohol or drug abuse patient.[facility]In the event this information is protected [...] or prosecute any alcohol or drug abuse patient.[facility] HospitalIn the event this information is protected by the Federal Confidentiality of Alcohol and Drug Abuse Patient Records regulations: The Federal rules restrict any use of the information to criminally investigate or prosecute any alcohol or drug abuse patient.[facility]In the event this information is protected by the Federal Confidentiality of Alcohol and Drug Abuse Patient Records regulations: The Federal rules restrict any use of the information to criminally investigate or prosecute any alcohol or drug abuse patient.[facility]In the event this information is protected by the Federal Confidentiality of Alcohol and Drug Abuse Patient Records regulations: The Federal rules restrict any use of the information to criminally investigate or prosecute any alcohol or drug abuse patient.[facility]In the event this information is protected by the Federal Confidentiality of Alcohol and Drug Abuse Patient Records regulations: The Federal rules restrict any use of the information to criminally investigate or prosecute any alcohol or drug abuse patient.[facility]In the event this information is protected by the Federal Confidentiality of Alcohol and Drug Abuse Patient Records regulations: The Federal rules restrict any use of the information to criminally investigate or prosecute any alcohol or drug abuse patient.[facility]In the event this information is protected by the Federal Confidentiality of Alcohol and Drug Abuse Patient Records regulations: The Federal rules restrict any use of the information to criminally investigate or prosecute any alcohol or drug abuse patient.[facility]In the event this information is protected by the Federal Confidentiality of Alcohol and Drug Abuse Patient Records regulations: The Federal rules restrict any use of the information to criminally investigate or prosecute any alcohol or drug abuse patient.[facility]In the event this information is protected by the Federal Confidentiality of Alcohol and Drug Abuse Patient Records regulations: The Federal rules restrict any use of the information to criminally investigate or prosecute any alcohol or drug abuse patient.[facility]In the event this information is protected by the Federal Confidentiality of Alcohol and Drug Abuse Patient Records regulations: The Federal rules restrict any use of the information to criminally investigate or prosecute any alcohol or drug abuse patient.[facility]In the event this information is protected by the Federal Confidentiality of Alcohol and Drug Abuse Patient Records regulations: The Federal rules restrict any use of the information to criminally investigate or prosecute any alcohol or drug abuse patient.[facility]In the event this information is protected by the Federal Confidentiality of Alcohol and Drug Abuse Patient Records regulations: The Federal rules restrict any use of the information to criminally investigate or prosecute any alcohol or drug abuse patient.[facility]In the event this information is protected by the Federal Confidentiality of Alcohol and Drug Abuse Patient Records regulations: The Federal rules restrict any use of the information to criminally investigate or prosecute any alcohol or drug abuse patient.[facility]In the event this information is protected by the Federal Confidentiality of Alcohol and Drug Abuse Patient Records regulations: The Federal rules restrict any use of the information to criminally investigate or prosecute any alcohol or drug abuse patient.[facility]In the event this information is protected by the Federal Confidentiality of Alcohol and Drug Abuse Patient Records regulations: The Federal rules restrict any use of the information to criminally investigate or prosecute any alcohol or drug abuse patient.[facility]In the event this information is protected by the Federal Confidentiality of Alcohol and Drug Abuse Patient Records regulations: The Federal rules restrict any use of the information to criminally investigate or prosecute any alcohol or drug abuse patient.[facility]In the event this information is protected by the Federal Confidentiality of Alcohol and Drug Abuse Patient Records regulations: The Federal rules restrict any use of the information to criminally investigate or prosecute any alcohol or drug abuse patient.[facility] HospitalIn the event this information is protected by the Federal Confidentiality of Alcohol and Drug Abuse Patient Records regulations: The Federal rules restrict any use of the information to criminally investigate or prosecute any alcohol or drug abuse patient.[facility] HospitalIn the event this information is protected by the Federal Confidentiality of Alcohol and Drug Abuse Patient Records regulations: The Federal rules restrict any use of the information to criminally investigate or prosecute any alcohol or drug abuse patient.[facility] HospitalIn the event this information is protected by the Federal Confidentiality of Alcohol and Drug Abuse Patient Records regulations: The Federal rules restrict any use of the information to criminally investigate or prosecute any alcohol or drug abuse patient.[facility] HospitalIn the event this information is protected by the Federal Confidentiality of Alcohol and Drug Abuse Patient Records regulations: The Federal rules restrict any use of the information to criminally investigate or prosecute any alcohol or drug abuse patient.[facility] HospitalIn the event this information is protected by the Federal Confidentiality of Alcohol and Drug Abuse Patient Records regulations: The Federal rules restrict any use of the information to criminally investigate or prosecute any alcohol or drug abuse patient.[facility] HospitalIn the event this information is protected by the Federal Confidentiality of Alcohol and Drug Abuse Patient Records regulations: The Federal rules restrict any use of the information to criminally investigate or prosecute any alcohol or drug abuse patient.[facility] HospitalIn the event this information is protected by the Federal Confidentiality of Alcohol and Drug Abuse Patient Records regulations: The Federal rules restrict any use of the information to criminally investigate or prosecute any alcohol or drug abuse patient.[facility] HospitalIn the event this information is protected by the Federal Confidentiality of Alcohol and Drug Abuse Patient Records regulations: The Federal rules restrict any use of the information to criminally investigate or prosecute any alcohol or drug abuse patient.[facility] HospitalIn the event this information is protected by the Federal Confidentiality of Alcohol and Drug Abuse Patient Records regulations: The Federal rules restrict any use of the information to criminally investigate or prosecute any alcohol or drug abuse patient.[facility] HospitalIn the event this information is protected by the Federal Confidentiality of Alcohol and Drug Abuse Patient Records regulations: The Federal rules restrict any use of the information to criminally investigate or prosecute any alcohol or drug abuse patient.[facility] HospitalIn the event this information is protected by the Federal Confidentiality of Alcohol and Drug Abuse Patient Records regulations: The Federal rules restrict any use of the information to criminally investigate or prosecute any alcohol or drug abuse patient.[facility] HospitalIn the event this information is protected by the Federal Confidentiality of Alcohol and Drug Abuse Patient Records regulations: The Federal rules restrict any use of the information to criminally investigate or prosecute any alcohol or drug abuse patient.[facility] HospitalIn the event this information is protected by the Federal Confidentiality of Alcohol and Drug Abuse Patient Records regulations: The Federal rules restrict any use of the information to criminally investigate or prosecute any alcohol or drug abuse patient.[facility] HospitalIn the event this information is protected by the Federal Confidentiality of Alcohol and Drug Abuse Patient Records regulations: The Federal rules restrict any use of the information to criminally investigate or prosecute any alcohol or drug abuse patient.[facility] HospitalIn the event this information is protected by the Federal Confidentiality of Alcohol and Drug Abuse Patient Records regulations: The Federal rules restrict any use of the information to criminally investigate or prosecute any alcohol or drug abuse patient.[facility] HospitalIn the event this information is protected by the Federal Confidentiality of Alcohol and Drug Abuse Patient Records regulations: The Federal rules restrict any use of the information to criminally investigate or prosecute any alcohol or drug abuse patient.[facility] HospitalIn the event this information is protected by the Federal Confidentiality of Alcohol and Drug Abuse Patient Records regulations: The Federal rules restrict any use of the information to criminally investigate or prosecute any alcohol or drug abuse patient.[facility] HospitalIn the event this information is protected by the Federal Confidentiality of Alcohol and Drug Abuse Patient Records regulations: The Federal rules restrict any use of the information to criminally investigate or prosecute any alcohol or drug abuse patient.[facility] HospitalIn the event this information is protected by the Federal Confidentiality of Alcohol and Drug Abuse Patient Records regulations: The Federal rules restrict any use of the information to criminally investigate or prosecute any alcohol or drug abuse patient.[facility] HospitalIn the event this information is protected by the Federal Confidentiality of Alcohol and Drug Abuse Patient Records regulations: The Federal rules restrict any use of the information to criminally investigate or prosecute any alcohol or drug abuse patient.[facility] HospitalIn the event this information is protected by the Federal Confidentiality of Alcohol and Drug Abuse Patient Records regulations: The Federal rules restrict any use of the information to criminally investigate or prosecute any alcohol or drug abuse patient.[facility] HospitalIn the event this information is protected by the Federal Confidentiality of Alcohol and Drug Abuse Patient Records regulations: The Federal rules restrict any use of the information to criminally investigate or prosecute any alcohol or drug abuse patient.[facility] HospitalIn the event this information is protected by the Federal Confidentiality of Alcohol and Drug Abuse Patient Records regulations: The Federal rules restrict any use of the information to criminally investigate or prosecute any alcohol or drug abuse patient.[facility] HospitalIn the event this information is protected by the Federal Confidentiality of Alcohol and Drug Abuse Patient Records regulations: The Federal rules restrict any use of the information to criminally investigate or prosecute any alcohol or drug abuse patient.[facility] HospitalIn the event this information is protected by the Federal Confidentiality of Alcohol and Drug Abuse Patient Records regulations: The Federal rules restrict any use of the information to criminally investigate or prosecute any alcohol or drug abuse patient.[facility] HospitalIn the event this information is protected by the Federal Confidentiality of Alcohol and Drug Abuse Patient Records regulations: The Federal rules restrict any use of the information to criminally investigate or prosecute any alcohol or drug abuse patient.[facility] HospitalIn the event this information is protected by the Federal Confidentiality of Alcohol and Drug Abuse Patient Records regulations: The Federal rules restrict any use of the information to criminally investigate or prosecute any alcohol or drug abuse patient.[facility] HospitalIn the event this information is protected by the Federal Confidentiality of Alcohol and Drug Abuse Patient Records regulations: The Federal rules restrict any use of the information to criminally investigate or prosecute any alcohol or drug abuse patient.[facility] HospitalIn the event this information is protected by the Federal Confidentiality of Alcohol and Drug Abuse Patient Records regulations: The Federal rules restrict any use of the information to criminally investigate or prosecute any alcohol or drug abuse patient.[facility] HospitalIn the event this information is protected by the Federal Confidentiality of Alcohol and Drug Abuse Patient Records regulations: The Federal rules restrict any use of the information to criminally investigate or prosecute any alcohol or drug abuse patient.[facility] the event this information is protected by the Federal Confidentiality of Alcohol and Drug Abuse Patient Records regulations: The Federal rules restrict any use of the information to criminally investigate or prosecute any alcohol or drug abuse patient.[facility] HospitalIn the event this information is protected by the Federal Confidentiality of Alcohol and Drug Abuse Patient Records regulations: The Federal rules restrict any use of the information to criminally investigate or prosecute any alcohol or drug abuse patient.[facility] HospitalIn the event this information is protected [...] or prosecute any alcohol or drug abuse patient.[facility] HospitalIn the event this information is protected by the Federal Confidentiality of Alcohol and Drug Abuse Patient Records regulations: The Federal rules restrict any use of the information to criminally investigate or prosecute any alcohol or drug abuse patient.[facility] HospitalIn the event this information is protected by the Federal Confidentiality of Alcohol and Drug Abuse Patient Records regulations: The Federal rules restrict any use of the information to criminally investigate or prosecute any alcohol or drug abuse patient.[facility] HospitalIn the event this information is protected by the Federal Confidentiality of Alcohol and Drug Abuse Patient Records regulations: The Federal rules restrict any use of the information to criminally investigate or prosecute any alcohol or drug abuse patient.[facility] HospitalIn the event this information is protected by the Federal Confidentiality of Alcohol and Drug Abuse Patient Records regulations: The Federal rules restrict any use of the information to criminally investigate or prosecute any alcohol or drug abuse patient.[facility] HospitalIn the event this information is protected by the Federal Confidentiality of Alcohol and Drug Abuse Patient Records regulations: The Federal rules restrict any use of the information to criminally investigate or prosecute any alcohol or drug abuse patient.[facility] HospitalIn the event this information is protected by the Federal Confidentiality of Alcohol and Drug Abuse Patient Records regulations: The Federal rules restrict any use of the information to criminally investigate or prosecute any alcohol or drug abuse patient.[facility] HospitalIn the event this information is protected by the Federal Confidentiality of Alcohol and Drug Abuse Patient Records regulations: The Federal rules restrict any use of the information to criminally investigate or prosecute any alcohol or drug abuse patient.[facility] HospitalIn the event this information is protected by the Federal Confidentiality of Alcohol and Drug Abuse Patient Records regulations: The Federal rules restrict any use of the information to criminally investigate or prosecute any alcohol or drug abuse patient.[facility] HospitalIn the event this information is protected by the Federal Confidentiality of Alcohol and Drug Abuse Patient Records regulations: The Federal rules restrict any use of the information to criminally investigate or prosecute any alcohol or drug abuse patient.[facility] HospitalIn the event this information is protected by the Federal Confidentiality of Alcohol and Drug Abuse Patient Records regulations: The Federal rules restrict any use of the information to criminally investigate or prosecute any alcohol or drug abuse patient.[facility] Reason for Visit (unrecogniz ed section [...] CT Specialty Diagnoses / [facility] CT IMAGING Diagnoses Abnormal CT of the abdomen Liver 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 Procedures CT ABD/PEL W IVCON CT ABD & PELVIS W/CONTRAST Chad Mariee, INTERVENTIONAL PAIN PHYSICIAN.[employer]SI[employer] TEACHER [address] [place] [address] [place] [address] Referral ID Status Reason Start Date Expiration Date V isits Requested Visits Authorized [id number] Closed Auto-Generate d Referral 11/25/2022 12/25/2022 2 2 Reason Comments Radiology US Specialty Diagnoses / [facility] To Contact US IM[facility]ING Diagnoses Epigastric pain Procedures US ABD RT UPPER QUADRANT US ABDOMINAL REAL TIME W/IMAGE LIMITED Clifton Hung MD [address] [place] [address] [place] [address] Referral ID Status Reason Start Date Expiration Date V isits Requested Visits Authorized [id number] Closed Auto-Generate d Referral 09/03/2022 10/03/2023 1 1 Specialty Diagnoses / [facility] Ref[facility] To Contact CT IMAGING Diagnoses Breast neoplasm, Tis (DCIS), left Nausea Pain of upper abdomen Procedures CT CHEST W IVCON DIAGNOSTIC COMPUTED TOMOGRAPHY THORAX W/CONTRAST Chad Mariee, INTERVENTIONAL PAIN PHYSICIAN.GYMNASIUM TEACHER [address] [place] [address] [place] [address] Referral ID Status Reason Start Date Expiration Date V isits Requested Visits Authorized [id number] Closed Auto-Generate d Referral 09/15/2022 10/15/2022 2 2 Reason Comments Outside Ophtalmology Reason Comments Outside [id number] Ordered Reason Comments ER Discharge Summary Reason [...] NEW HIGH MDM 60 MINUTES Francine Madrid APRN.[facility] [address] [place] [address] Referral ID Status Reason Start Date Expiration Date V isits Requested Visits Authorized [id number] Closed PCP Requested Referral 04/20/2024 04/20/2025 1 [...] concerns. Patient is scheduled to see an Touch Up Edger on 07/11/24. Reason Comments Adrenal Adenoma of right adr enal gland Specialty Diagnoses / Procedures Referred By Jared hernández Referred To Contact Endocrinology Diagnoses Adenoma of right adrenal gland Procedures CONSULT TO ENDOCRINOLOGY OFFICE/OUTPATIENT NEW HIGH MDM 60 MINUTES Ori Lord DO [address] [place] [address] Referral ID Status Reason Start Date Expiration Date V isits Requested Visits Authorized [id number] Closed PCP Requested Referral 05/23/2024 05/23/2025 1 [...] Alexa Matute MD [address] [place] [address] [place] [address] Referral ID Status Reason Start Date Expiration Date V isits Requested Visits Authorized [id number] Closed Auto-Generate d Referral 08/15/2024 10/14/2024 1 [...] Population Health Navigation Outreach 04/12/2025 [employer] Reason Comments UTI X3 days Reason Onset Date Comments Allied Health Visit 05/14/2025 Medication A dherence Outreach Reason Onset Date Comments Allied Health Visit 05/17/2025 Medication A dherence Outreach Care Teams (unrecognized sec tion and content) [employer] Mushroom Relationship Specialty Start Date End Date Clifton Hung MD [address], [place] [id number] PCP - General Family Practice 01/16/16 Renata Barnhart MD, [address] [place], [place] [id number] Physician Radiation Oncology 04/25/21 [employer] Mushroom Relationship Specialty Start Date End Date Clifton Hung MD [address] [facility] [place] [address] PCP - General Family Practice 01/16/16 Renata Barnhart MD, [address] [facility] [place] [address] Physician Radiation Oncology 04/25/21 [employer] Mushroom Relationship Specialty Start Date End Date Clifton Hung MD [address] [facility] [place] [address] PCP - General Family Practice 01/16/16 Renata Barnhart MD, MD [address] [place] [address] Physician Radiation Oncology 04/25/21 [employer] Mix[employer] Mushroom Relationship Specialty Start Date End Date Clifton Hung MD [address] [facility], [place] [address] PCP - General Family Practice 01/16/16 Renata Barnhart MD, MD [address] [place] [address] Physician Radiation Oncology 04/25/21 [employer] Mix[employer] Mushroom Relationship Specialty Start Date End Date Clifton Hung MD [address] [place] [address] PCP - General Family Practice 01/16/16 Renata Barnhart MD, [address] [place] [address] Physician Radiation Oncology 04/25/21 [employer] Mix[employer] Mushroom Relationship Specialty Start Date End Date Clifton Hung MD [address] [facility], [place] [address] PCP - General Family Practice 01/16/16 Renata Barnhart MD, [address] [place] [address] Physician Radiation Oncology 04/25/21 [employer] Mixer Mushroom Relationship Specialty Start Date End Date Clifton Hung MD [address] [facility], [place] [address] PCP - General Family Practice 01/16/16 Renata Barnhart MD, [address] [place] [address] Physician Radiation Oncology 04/25/21 [employer] Mixer Mushroom Relationship Specialty Start Date End Date Clifton Hung MD [address] [place] [address] PCP - General Family Practice 01/16/16 Renata Barnhart MD, [address] [place] [address] Physician Radiation Oncology 04/25/21 [employer] Mixer Mushroom Relationship Specialty Start Date End Date Clifton Hung MD [address] [facility] [place] [address] PCP - General Family Practice 01/16/16 Renata Barnhart MD, [address] [place] [address] Physician Radiation Oncology 04/25/21 [employer] Mixer Mushroom Relationship Specialty Start Date End Date Clifton Hung MD [address] [facility] [place] [address] PCP - General Family Practice 01/16/16 Renata Barnhart MD, [address] [place] [address] Physician Radiation Oncology 04/25/21 [employer] Mixer Mushroom Relationship Specialty Start Date End Date Clifton Hung MD [address] [place] [address] PCP - General Family Medicine 01/16/16 Renata Barnhart MD, [address] [facility] [place] [address] Physician Radiation Oncology 04/25/21 [employer] Mixer Mushroom Relationship Specialty Start Date End Date Clifton Hung MD [address] [facility] [place] [address] PCP - General Family Medicine 01/16/16 Renata Barnhart MD, [address] [facility] [place] [address] Physician Radiation Oncology 04/25/21 [employer] Mixer Mushroom Relationship Specialty Start Date End Date Clifton Hung MD [address] [facility] [place] [address] PCP - General Family Medicine 01/16/16 Renata Barnhart MD, [address] [facility] [place] [address] Physician Radiation Oncology 04/25/21 [employer] Media Mixer Mushroom Relationship Specialty Start Date End Date Clifton Hung MD [address] [facility] [place] [address] PCP - General Family Medicine 01/16/16 Renata Barnhart MD, [address] [facility] [place] [address] Physician Radiation Oncology 04/25/21 [employer] Media Mixer Mushroom Relationship Specialty Start Date End Date Clifton Hung MD [address] [facility] [place] [address] PCP - General Family Medicine 01/16/16 Renata Barnhart MD, [address] [facility] [place] [address] Physician Radiation Oncology 04/25/21 [employer] Media Mixer Mushroom Relationship Specialty Start Date End Date Clifton Hung MD [address] [facility] [place] [address] PCP - General Family Medicine 01/16/16 Renata Barnhart MD, [address] [facility] [place] [address] Physician Radiation Oncology 04/25/21 [employer] Media Mixer Mushroom Relationship Specialty Start Date End Date Clifton Hung MD [address] [facility], [place] [address] PCP - General Family Medicine 01/16/16 Renata Barnhart MD, [address] [facility] [place] [address] Physician Radiation Oncology 04/25/21 [employer] Media Mixer Mushroom Relationship Specialty Start Date End Date Clifton Hung MD [address] [facility], [place] [address] PCP - General Family Medicine 01/16/16 Renata Barnhart MD, [address] [facility] [place] [address] Physician Radiation Oncology 04/25/21 [employer] Media Mixer Mushroom Relationship Specialty Start Date End Date Clifton Hung MD [address] [facility] [place] [address] PCP - General Family Medicine 01/16/16 Renata Barnhart MD, [address] [facility] [place] [address] Physician Radiation Oncology 04/25/21 [employer] Mixer Mushroom Relationship Specialty Start Date End Date Clifton Hung MD [address] [place] [address] PCP - General Family Medicine 01/16/16 Renata Barnhart MD, [address] [place] [address] Physician Radiation Oncology 04/25/21 [employer] Mixer Mushroom Relationship Specialty Start Date End Date Clifton Hung MD [address] [place] [address] PCP - General Family Medicine 01/16/16 Renata Barnhart MD, [address] [place] [address] Physician Radiation Oncology 04/25/21 [employer] Mixer Mushroom Relationship Specialty Start Date End Date Clifton Hung MD [address] [facility] [place] [address] PCP - General Family Medicine 01/16/16 Renata Barnhart MD, [address] [place] [address] Physician Radiation Oncology 04/25/21 [employer] Media Mixer Mushroom Relationship Specialty Start Date End Date Clifton Hung MD [address] [facility] [place] [address] PCP - General Family Medicine 01/16/16 Renata Barnhart MD, [address] [place] [address] Physician Radiation Oncology 04/25/21 [employer] Media Mixer Mushroom Relationship Specialty Start Date End Date Clifton Hung MD [address] [facility] [place] [address] PCP - General Family Medicine 01/16/16 Renata Barnhart MD, [address] [place] [address] Physician Radiation Oncology 04/25/21 [employer] Media Mixer Mushroom Relationship Specialty Start Date End Date Clifton Hung MD [address] [facility] [place] [address] PCP - General Family Medicine 01/16/16 Renata Barnhart MD, [address] [place] [address] Physician Radiation Oncology 04/25/21 [employer] Media Mixer Mushroom Relationship Specialty Start Date End Date Clifton Hung MD [address] [facility] [place] [address] PCP - General Family Medicine 01/16/16 Renata Barnhart MD, [address] [facility], [place] [address]71 Physician Radiation Oncology 04/25/21 Team Status: Active Member Role Status Dates Dr. Clifton Hung MD Family Provider Active Dr. Clifton Hung MD Primary Care Provider Active Team Status: Inactive Member Role Status Dates Dr. Clifton Hung MD Primary Care Provider, Referri ng Provider Active Octaviano Humphries YARD STOCKER, YARD STOCKER-C Attending Provider Active Team Status: Inactive Member Role Status Dates Dr. Clifton Hung MD Primary Care Provider, Referri ng Provider Active Karin Coles YARD STOCKER, YARD STOCKER-C Attending Provider Active Team Status: Inactive Member Role Status Dates Dr. Clifton Hung MD Primary Care Provider Active Karin Coles YARD STOCKER, YARD STOCKER-C Attending Provider, Referrin g Provider Active Team Status: Active Member Role Status Dates Dr. Clifton Hung MD Primary Care Provider Active Karin Coles YARD STOCKER, YARD STOCKER-C Attending Provider, Referrin g Provider Active Team Status: Active Member Role Status Dates Dr. Clifton Hung MD Primary Care Provider, Referri ng Provider Active Dr. Carson Alcantar DO Attending Provider, Other Prov ider Active Team Status: Inactive Member Role Status Dates Dr. Clifton Hung MD Primary Care Provider, Referri ng Provider Active Dr. Carson Alcantar DO Attending Provider Active Growth Media Mixer Mushroom Relationship Specialty Start Date End Date Clifton Hung MD [address] [facility] [place] [address] PCP - General Family Medicine 01/16/16 Renata Barnhart MD, [address] [place] [address] Physician Radiation Oncology 04/25/21 Team Status: Inactive Member Role Status Dates Dr. Clifton Hung MD Primary Care Provider Active Dr. Carson Alcantar DO Attending Provider Active Growth Media Mixer Mushroom Relationship Specialty Start Date End Date Clifton Hung MD [address] [facility] [place] [address] PCP - General Family Medicine 01/16/16 Renata Barnhart MD, [address] [place] [address] Physician Radiation Oncology 04/25/21 Growth Media Mixer Mushroom Relationship Specialty Start Date End Date Clifton Hung MD [address] [facility] [place] [address] PCP - General Family Medicine 01/16/16 Renata Barnhart MD, [address] [place] [address] Physician Radiation Oncology 04/25/21 Growth Media Mixer Mushroom Relationship Specialty Start Date End Date Clifton Hung MD [address] [facility] [place] [address] PCP - General Family Medicine 01/16/16 Renata Barnhart MD, [address] [place] [address] Physician Radiation Oncology 04/25/21 Team Status: Inactive Member Role Status Dates Dr. Clifton Hung MD Primary Care Provider Active Dr. Carson Alcantar DO Attending Provider, Referring Provider Active Growth Media Mixer Mushroom Relationship Specialty Start Date End Date Clifton Hung MD [address] [place] [address] PCP - General Family Medicine 01/16/16 Renata Barnhart MD, MD [address] [place] [address] Physician Radiation Oncology 04/25/21 Growth Media Mixer Mushroom Relationship Specialty Start Date End Date Clifton Hung MD [address] [place] [address] PCP - General Family Medicine 01/16/16 Renata Barnhart MD, [address] [place] [address] Physician Radiation Oncology 04/25/21 Growth Media Mixer Mushroom Relationship Specialty Start Date End Date Clifton Hung MD [address] [place] [address] PCP - General Family Medicine 01/16/16 Renata Barnhart MD, [address] [place] [address] Physician Radiation Oncology 04/25/21 Growth Media Mixer Mushroom Relationship Specialty Start Date End Date Clifton Hung MD [address] [place] [address] PCP - General Family Medicine 01/16/16 Renata Barnhart MD, [address] [place] [address] Physician Radiation Oncology 04/25/21 Growth Media Mixer Mushroom Relationship Specialty Start Date End Date Clifton Hung MD [address] [place] [address] PCP - General Family Medicine 01/16/16 Renata Barnhart MD, [address] [place] [address] Physician Radiation Oncology 04/25/21 Growth Media Mixer Mushroom Relationship Specialty Start Date End Date Clifton Hung MD [address] [place] [address] PCP - General Family Medicine 01/16/16 Renata Barnhart MD, [address] [place] [address] Physician Radiation Oncology 04/25/21 Growth Media Mixer Mushroom Relationship Specialty Start Date End Date Clifton Hung MD [address] [place] [address] PCP - General Family Medicine 01/16/16 Renata Barnhart MD, [address] [place] [address] Physician Radiation Oncology 04/25/21 Growth Media Mixer Mushroom Relationship Specialty Start Date End Date Clifton Hung MD [address] [place] [address] PCP - General Family Medicine 01/16/16 Renata Barnhart MD, [address] [place] [address] Physician Radiation Oncology 04/25/21 Growth Media Mixer Mushroom Relationship Specialty Start Date End Date Clifton Hung MD [address] [facility] [place] [address] PCP - General Family Medicine 01/16/16 Rneata Barnhart MD, MD [address] [place] [address] Physician Radiation Oncology 04/25/21 Growth Media Mixer Mushroom Relationship Specialty Start Date End Date Clifton Hung MD [address] [place] [address] PCP - General Family Medicine 01/16/16 Renata Barnhart MD, [address] [place], [place] [address] Physician Radiation Oncology 04/25/21 Team Status: Active Member Role Status Dates Dr. Clifton Hung MD Primary Care Provider Active Octaviano Humphries YARD STOCKER, YARD STOCKER-C Referring Provider, Other Provide r Active Dr. Karsten Zarate MD Attending Provider Active Team Status: Inactive Member Role Status Dates Dr. Clifton Hung MD Primary Care Provider Active Octaviano Humphries YARD STOCKER, YARD STOCKER-C Attending Provider, Referring Pro vider Active Team Status: Inactive Member Role Status Dates Dr. Clifton Hung MD Primary Care Provider Active Dr. Rafita Fraser DO Attending Provider, Emergency Pro vider Active Team Status: Active Member Role Status Dates Dr. Clifton Hung MD Primary Care Provider Active Octaviano Humphries YARD STOCKER, YARD STOCKER-C Attending Provider, Referring Pro vider Active Growth Media Mixer Mushroom Relationship Specialty Start Date End Date Clifton Hung MD [address] [place] [address] PCP - General Family Medicine 01/16/16 Renata Barnhart MD, [address] [place] [address] Physician Radiation Oncology 04/25/21 Team Status: Active Member Role Status Dates Dr. Clifton Hung MD Primary Care Provider Active Octaviano Humphries YARD STOCKER, YARD STOCKER-C Attending Provider Active Team Status: Active Member Role Status Dates Dr. Clifton Hung MD Primary Care Provider Active Dr. Karsten Zarate MD Attending Provider Active Octaviano Humphries YARD STOCKER, YARD STOCKER-C Referring Provider Active Team Status: Inactive Member Role Status Dates Dr. Clifton Hung MD Primary Care Provider Active Dr. Caro Pedro MD Emergency Provider Active Growth Media Mixer Mushroom Relationship Specialty Start Date End Date Clifton Hung MD [address] [facility] [place] [address] PCP - General Family Medicine 01/16/16 Renata Barnhart MD [address] [facility] [place] [address] Physician Radiation Oncology 04/25/21 Team Status: Inactive Member Role Status Dates Dr. Clifton Hung MD Primary Care Provider Active Dr. Caro Pedor MD Attending Provider, Emergency Provider Active Team Status: Inactive Member Role Status Dates Dr. Clifton Hung MD Primary Care Provider Active Dr. Victor M Hernandez DO Emergency Provider Active Growth Media Mixer Mushroom Relationship Specialty Start Date End Date Clifton Hung MD [address] [facility] [place] [address] PCP - General Family Medicine 01/16/16 Renata Barnhart MD [address] [place] [address] Physician Radiation Oncology 04/25/21 Growth Media Mixer Mushroom Relationship Specialty Start Date End Date Clifton Hung MD [address] [place] [address] PCP - General Family Medicine 01/16/16 Renata Barnhart MD [address] [place] [address] Physician Radiation Oncology 04/25/21 Team Status: Inactive Member Role Status Dates Dr. Clifton Hung MD Primary Care Provider Active Dr. Victor M Hernandez DO Attending Provider, Emergency Pr ovider Active Growth Media Mixer Mushroom Relationship Specialty Start Date End Date Clifton Hung MD [address] [facility] [place] [address] PCP - General Family Medicine 01/16/16 Renata Barnhart MD [address] [facility] [place] [address] Physician Radiation Oncology 04/25/21 Growth Media Mixer Mushroom Relationship Specialty Start Date End Date Clifton Hung MD [address] [facility] [place] [address] PCP - General Family Medicine 01/16/16 Renata Barnhart MD [address] [facility] [place] [address] Physician Radiation Oncology 04/25/21 Growth Media Mixer Mushroom Relationship Specialty Start Date End Date Clifton Hung MD [address] [place] [address] PCP - General Family Medicine 01/16/16 Renata Barnhart MD [address] [facility] [place] [address] Physician Radiation Oncology 04/25/21 Growth Media Mixer Mushroom Relationship Specialty Start Date End Date Clifton Hung MD [address] [facility] [place] [address] PCP - General Family Medicine 01/16/16 Renata Barnhart MD [address] [place] [address] Physician Radiation Oncology 04/25/21 Growth Media Mixer Mushroom Relationship Specialty Start Date End Date Clifton Hung MD [address] [place] [address] PCP - General Family Medicine 01/16/16 Renata Barnhart MD [address] [place] [address] Physician Radiation Oncology 04/25/21 Growth Media Mixer Mushroom Relationship Specialty Start Date End Date Clifton Hung MD [address] [place] [address] PCP - General Family Medicine 01/16/16 Renata Barnhart MD [address] [place] [address] Physician Radiation Oncology 04/25/21 Growth Media Mixer Mushroom Relationship Specialty Start Date End Date Clifton Hung MD [address] [place] [address] PCP - General Family Medicine 01/16/16 Renata Barnhart MD [address] [place] [address] Physician Radiation Oncology 04/25/21 Growth Media Mixer Mushroom Relationship Specialty Start Date End Date Clifton Hung MD [address] [place] [address] PCP - General Family Medicine 01/16/16 Renata Barnhart MD [address] [place] [address] Physician Radiation Oncology 04/25/21 Growth Media Mixer Mushroom Relationship Specialty Start Date End Date Clifton Hung MD [address] [place] [address] PCP - General Family Medicine 01/16/16 Renata Barnhart MD [address] [place] [address] Physician Radiation Oncology 04/25/21 Growth Media Mixer Mushroom Relationship Specialty Start Date End Date Clifton Hung MD [address] [place] [address] PCP - General Family Medicine 01/16/16 Renata Barnhart MD [address] [place] [address] Physician Radiation Oncology 04/25/21 Growth Media Mixer Mushroom Relationship Specialty Start Date End Date Clifton Hung MD [address] [place] [address] PCP - General Family Medicine 01/16/16 Renata Barnhart MD [address] [place] [address] Physician Radiation Oncology 04/25/21 Growth Media Mixer Mushroom Relationship Specialty Start Date End Date Clifton Hung MD [address] [place] [address] PCP - General Family Medicine 01/16/16 Renata Barnhart MD [address] [address] Physician Radiation Oncology 04/25/21 Growth Media Mixer Mushroom Relationship Specialty Start Date End Date Clifton Hung MD [address] [facility] [place] [address] PCP - General Family Medicine 01/16/16 Renata Barnhart MD [address] [place] [address] Physician Radiation Oncology 04/25/21 Growth Media Mixer Mushroom Relationship Specialty Start Date End Date Clifton Hung MD [address] [facility] [place] [address] PCP - General Family Medicine 01/16/16 Renata Barnhart MD [address] [place] [address] Physician Radiation Oncology 04/25/21 Growth Media Mixer Mushroom Relationship Specialty Start Date End Date Clifton Hung MD [address] [facility] [place] [address] PCP - General Family Medicine 01/16/16 Renata Barnhart MD [address] [place] [address] Physician Radiation Oncology 04/25/21 Growth Media Mixer Mushroom Relationship Specialty Start Date End Date Clifton Hung MD [address] [place] [address] PCP - General Family Medicine 01/16/16 Renata Barnhart MD [address] [address] Physician Radiation Oncology 04/25/21 Growth Media Mixer Mushroom Relationship Specialty Start Date End Date Clifton Hung MD [address] [facility] [place] [address] PCP - General Family Medicine 01/16/16 Renata Barnhart MD [address] [place] [address] Physician Radiation Oncology 04/25/21 Growth Media Mixer Mushroom Relationship Specialty Start Date End Date Clifton Hung MD [address] [facility] [place] [address] PCP - General Family Medicine 01/16/16 Renata Barnhart MD [address] [place] [address] Physician Radiation Oncology 04/25/21 Growth Media Mixer Mushroom Relationship Specialty Start Date End Date Clifton Hung MD [address] [facility] [place] [address] PCP - General Family Medicine 01/16/16 Renata Barnhart MD [address] [place] [address] Physician Radiation Oncology 04/25/21 Growth Media Mixer Mushroom Relationship Specialty Start Date End Date Clifton Hung MD [address] [facility] [place] [address] PCP - General Family Medicine 01/16/16 Renata Barnhart MD [address] [place] [address] Physician Radiation Oncology 04/25/21 Growth Media Mixer Mushroom Relationship Specialty Start Date End Date Clifton Hung MD [address] [facility] [place] [address] PCP - General Family Medicine 01/16/16 Renata Barnhart MD [address] [place] [address] Physician Radiation Oncology 04/25/21 Growth Media Mixer Mushroom Relationship Specialty Start Date End Date Clifton Hung MD [address] [facility] [place] [address] PCP - General Family Medicine 01/16/16 Renata Barnhart MD [address] [place] [address] Physician Radiation Oncology 04/25/21 Growth Media Mixer Mushroom Relationship Specialty Start Date End Date Clifton Hung MD [address] [facility] [place] [address] PCP - General Family Medicine 01/16/16 Renata Barnhart MD [address] [place] [address] Physician Radiation Oncology 04/25/21 Growth Media Mixer Mushroom Relationship Specialty Start Date End Date Clifton Hung MD [address] [place] [address] PCP - General Family Medicine 01/16/16 Renata Barnhart MD [address] [place] [address] Physician Radiation Oncology 04/25/21 Growth Media Mixer Mushroom Relationship Specialty Start Date End Date Clifton Hung MD [address] [facility] [place] [address] PCP - General Family Medicine 01/16/16 Renata Barnhart MD [address] [place] [address] Physician Radiation Oncology 04/25/21 Francine Madrid APRN.GYMNASIUM TEACHER [address] [place] [address] Electric Shovel Operator Family [facility] 10/14/24 Cherise Sifuentes PA-C [address] [place] [address] [facility] 10/14/24 Growth Media Mixer Mushroom Relationship Specialty Start Date End Date Clifton Hung MD [address] [place] [address] PCP - General Family Medicine 01/16/16 Renata Barnhart MD [address] [place] [address] Physician Radiation Oncology 04/25/21 Francine Madrid APRN.GYMNASIUM TEACHER [address] [place] [address] [facility] Family Medicine 10/14/24 Cherise Sifuentes PA-C [address] [facility] [place] [address] [facility] 10/14/24 Growth Media Mixer Mushroom Relationship Specialty Start Date End Date Clifton Hung MD [address] [place] [address] PCP - General Family Medicine 01/16/16 Renata Barnhart MD [address] [place] [address] Physician Radiation Oncology 04/25/21 Francine Madrid APRN.GYMNASIUM TEACHER [address] [place] [address] Electric Shovel Operator Family Medicine 10/14/24 Cherise Sifuentes PA-C [address] [place] [address] Electric Shovel Operator Family Medicine 10/14/24 Growth Media Mixer Mushroom Relationship Specialty Start Date End Date Clifton Hung MD [address] [place] [address] PCP - General Family Medicine 01/16/16 Renata Barnhart MD [address] [place] [address] Physician Radiation Oncology 04/25/21 Francine Madrid APRN.GYMNASIUM TEACHER [address] [place] [address] Electric Shovel Operator Family Medicine 10/14/24 Cherise Sifuentes PA-C [address] [place] [address] Electric Shovel Operator Family [facility] 10/14/24 Growth Media Mixer Mushroom Relationship Specialty Start Date End Date Clifton Hung MD [address] [place] [address] PCP - General Family Medicine 01/16/16 Renata Barnhart MD [address] [place] [address] Physician Radiation Oncology 04/25/21 Francine Madrid APRN.GYMNASIUM TEACHER [address] [place] [address] [facility] 10/14/24 Cherise Sifuentes PA-C [address] [facility] [place] [address] [facility] 10/14/24 Growth Media Mixer Mushroom Relationship Specialty Start Date End Date Clifton Hung MD [address] [facility] [place] [address] PCP - General Family Medicine 01/16/16 Renata Barnhart MD [address] [place] [address] Physician Radiation Oncology 04/25/21 Francine Madrid APRN.GYMNASIUM TEACHER [address] [place] [address] [facility] 10/14/24 Cherise Sifuentes PA-C [address] [facility] [place] [address] [facility] 10/14/24 Growth Media Mixer Mushroom Relationship Specialty Start Date End Date Clifton Hung MD [address] [facility] [place] [address] PCP - General Family Medicine 01/16/16 Renata Barnhart MD [address] [place] [address] Physician Radiation Oncology 04/25/21 Francine Madrid APRN.GYMNASIUM TEACHER [address] [place] [address] Electric Shovel Operator Family [facility] 10/14/24 Cherise Sifuentes PA-C [address] [place] [address] Electric Shovel Operator [facility] 10/14/24 Growth Media Mixer Mushroom Relationship Specialty Start Date End Date Clifton Hung MD [address] [place] [address] PCP - General Family Medicine 01/16/16 Renata Barnhart MD [address] [place] [address] Physician Radiation Oncology 04/25/21 Francine Madrid, TERRA.GYMNASIUM TEACHER [address] [place] [address] Electric Shovel Operator [facility] 10/14/24 Cherise Sifuentes PA-C [address] [place] [address] [facility] Growth Media Mixer Mushroom Relationship Specialty Start Date End Date Clifton Hung MD [address] [place] [address] PCP - General Family Medicine 01/16/16 Renata Barnhart MD [address] [place] [address] Physician Radiation Oncology 04/25/21 Francine Madrid, TERRA.GYMNASIUM TEACHER [address] [place] [address] Electric Shovel Operator Family [facility] 10/14/24 Cherise Sifuentes PA-C [address] [facility] [place] [address] [facility] 10/14/24 Growth Media Mixer Mushroom Relationship Specialty Start Date End Date Clifton Hung MD [address] [place] [address] PCP - General Family Medicine 01/16/16 Renata Barnhart MD [address] [place] [address] Physician Radiation Oncology 04/25/21 Francine Madrid APRN.GYMNASIUM TEACHER [address] [place] [address] [facility] 10/14/24 Cherise Sifuentes PA-C [address] [place] [address] [facility] 10/14/24 Growth Media Mixer Mushroom Relationship Specialty Start Date End Date Clifton Hung MD [address] [place] [address] PCP - General Family Medicine 01/16/16 Renata Barnhart MD [address] [place] [address] Physician Radiation Oncology 04/25/21 Francine Madrid APRN.GYMNASIUM TEACHER [address] [place] [address] Electric Shovel Operator Family Medicine 10/14/24 Cherise Sifuentes PA-C [address] [facility] [place] [address] Electric Shovel Operator Family Medicine 10/14/24 Growth Media Mixer Mushroom Relationship Specialty Start Date End Date Clifton Hung MD [address] [place] [address] PCP - General Family Medicine 01/16/16 Renata Barnhart MD [address] [place] [address] Physician Radiation Oncology 04/25/21 Francine Madrid APRN.GYMNASIUM TEACHER [address] [place] [address] Electric Shovel Operator Family Medicine 10/14/24 Cherise Sifuentes PA-C [address] [place] [address] Electric Shovel Operator Family Medicine 10/14/24 Growth Media Mixer Mushroom Relationship Specialty Start Date End Date Clifton Hung MD [address] [place] [address] PCP - General Family Medicine 01/16/16 Renata Barnhart MD [address] [place] [address] Physician Radiation Oncology 04/25/21 Francine Madrid APRN.GYMNASIUM TEACHER [address] [place] [address] Electric Shovel Operator Family Medicine 10/14/24 Cherise Sifuentes PA-C [address] [place] [address] Electric Shovel Operator Family Medicine 10/14/24 Growth Media Mixer Mushroom Relationship Specialty Start Date End Date Clifton Hung MD [address] [facility] [place] [address] PCP - General Family Medicine 01/16/16 Renata Barnhart MD [address] [place] [address] Physician Radiation Oncology 04/25/21 Cherise Sifuentes PA-C [address] [place] [address] Electric Shovel Operator Family Medicine 10/14/24 Growth Media Mixer Mushroom Relationship Specialty Start Date End Date Clifton Hung MD [address] [place] [address] PCP - General Family Medicine 01/16/16 Renata Barnhart MD [address] [place] [address] Physician Radiation Oncology 04/25/21 Francine Madrid APRN.CNP [address] [place] [address] Electric Shovel Operator Family Medicine 04/09/25 Cherise Sifuentes PA-C [address] [facility] [place] [address] Electric Shovel Operator Family Medicine 04/09/25 Growth Media Mixer Mushroom Relationship Specialty Start Date End Date Clifton Hung MD [address] [place] [address] PCP - General Family Medicine 01/16/16 Renata Barnhart MD [address] [place] [address] Physician Radiation Oncology 04/25/21 Francine Madrid APRN.GYMNASIUM TEACHER [address] [place] [address] Electric Shovel Operator Family Medicine 04/09/25 Cherise Sifuentes PA-C [address] [facility] [place] [address] Electric Shovel Operator Family Medicine 04/09/25 Growth Media Mixer Mushroom Relationship Specialty Start Date End Date Clifton Hung MD [address] [place] [address] PCP - General Family Medicine 01/16/16 Renata Barnhart MD [address] [place] [address] Physician Radiation Oncology 04/25/21 Francine Madrid APRN.GYMNASIUM TEACHER [address] [place] [address] Electric Shovel Operator Family Medicine 04/09/25 Cherise Sifuentes PA-C [address] [facility] [place] [address] Electric Shovel Operator Family Medicine 04/09/25 Growth Media Mixer Mushroom Relationship Specialty Start Date End Date Clifton Hung MD [address] [facility] [place] [address] PCP - General Family Medicine 01/16/16 Renata Barnhart MD [address] [place] [address] Physician Radiation Oncology 04/25/21 Francine Madrid APRN.GYMNASIUM TEACHER [address] [place] [address] [facility] Family [facility] 04/09/25 Cherise Sifuentes PA-C [address] [facility] [place] [address] [facility] 04/09/25 Growth Media Mixer Mushroom Relationship Specialty Start Date End Date lCifton Hung MD [address] [facility] [place] [address] PCP - General Family Medicine 01/16/16 Renata Barnhart MD [address] [place] [address] Physician Radiation Oncology 04/25/21 Francine Madrid APRN.GYMNASIUM TEACHER [address] [place] [address] [facility] Medicine 04/09/25 Cherise Sifuentes PA-C [address] [facility] [place] [address] [facility] 04/09/25 Growth Media Mixer Mushroom Relationship Specialty Start Date End Date Clifton Hung MD [address] [facility] [place] [address] PCP - General Family Medicine 01/16/16 Renata Barnhart MD [address] [place] [address] Physician Radiation Oncology 04/25/21 Francine Madrid APRN.GYMNASIUM TEACHER [address] [place] [address] Electric [employer]vel Operator Family Medicine 04/09/25 Cherise Sifuentes PA-C [address] [place] [address] Electric Shovel Operator Family Medicine 04/09/25 [employer] Mushroom Relationship Specialty Start Date End Date Clifton Hung MD [address] [place] [address] PCP - General Family Medicine 01/16/16 Renata Barnhart MD [address] [place] [address] Physician Radiation Oncology 04/25/21 Francine Madrid APRN.GYMNASIUM TEACHER [address] [place] [id number] Electric Shovel Operator Family Medicine 10/14/24 03/25/25 Cherise Sifuentes PA-C [address] [place] [id number] Electric Shovel Operator Family Medicine 10/14/24 04/08/25 Francine Madrid APRN.GYMNASIUM TEACHER [address] [place] [address] Electric Shovel Operator Family Medicine 04/09/25 Cherise Sifuentes PA-C [address] [place] [address] Electric Shovel Operator Family Medicine 04/09/25 [employer] Mushroom Relationship Specialty Start Date End Date Clifton Hung MD [address] [place] [address] PCP - General Family Medicine 01/16/16 Renata Barnhart MD [address] [place] [address] Physician Radiation Oncology 04/25/21 Francine Madrid APRN.CNP [address] [place] [address] [facility] 04/09/25 Cherise Sifuentes PA-C [address] [place] [address] [facility] 04/09/25 Goals (unrecognized section and content) Goals [...] content) DATE CREATED AUTHOR 01/24/2023 Brijesh Kaplan [facility] DATE CREATED AUTHOR AUTHOR'S ORGANIZ ATION 10/25/2024 [facility] DATE CREATED AUTHOR AUTHOR'S ORGANIZ ATION 02/19/2025 [facility] DATE CREATED AUTHOR AUTHOR'S ORGANIZ ATION 05/18/2025 [facility] FOR RECORDS PERTAINING TO PATIENTS WHO [...] BE BASED ON THE PRIMARY CLINICAL RECORDS. [employer] [facility]. provides no warranty or guarantee of the accuracy or completeness of information in this document."
--- OUTSIDE RECORDS SUMMARY | 2025-05-20 04:13 | XMS RPT_ITS | CCD ---
Author Organization [facility] Care Team Providers Care Civil Engineer'S Aide Name Role Phone Moni Garcia Unavailable Unavailable Roof HOSPICE ADMINISTRATOR, Octaviano Viera Unavailable Moni Garcia Unavailable Unavailable Manda Peck Unavailable Unavailable Yee Mei Unavailable Jennifer RN, Nancy Callahan Unavailable Moni Garcia Unavailable Unavailable Jennifer RN, Nancy Callahan Unavailable Jennifer RN, Nancy Callahan Unavailable AGNES Paige, Blanca Myles Unavailable UnavailClifton Goetz MD Primary Care Provider Obey MONK MD, Daesung Unavailable Dr. Clifton Hung Primary Care Provider Dr. Clifton Hung Referring Provider Roof HOSPICE ADMINISTRATOR, HOSPICE ADMINISTRATOR-Marleny Viera Attending Provider Clifton Hung MD Primary Care Provider Obey MONK MD, Daesung Unavailable Dr. Ron Gomez Attending Provider Roof HOSPICE ADMINISTRATOR, HOSPICE ADMINISTRATOR-Marleny Viera Referring Provider Roof HOSPICE ADMINISTRATOR, HOSPICE ADMINISTRATOR-C Octaviano Viera Other Provider Clifton Hung MD Primary Care Provider Clifton Hung MD Primary Care Provider Obey MONK MD, Dasantosung Unavailable Dr. Clifton Hung Primary Care Provider Dr. Clifton Hung Referring Provider Roof HOSPICE ADMINISTRATOR, HOSPICE ADMINISTRATOR-C Octaviano Viera Attending Provider Sanket HOSPICE ADMINISTRATOR, HOSPICE ADMINISTRATOR-C Karin Myles Attending Provider [phone] Dr. Carson Alcantar Attending Provider [phone] Dr. Carson Alcantar Other Provider [phone] Admitting Unavailable TEO HUTCHINS DR Attending Unavailable TEO HUTCHINS DR Primary Care Unavailable CLIFTON HUNG MD Consulting Unavailable PROVIDER, UNKNOWN Consulting Unavailable Dr. Clifton Hung Primary Care Provider Dr. Clifton Hung Referring Provider Sanket HOSPICE ADMINISTRATOR, HOSPICE ADMINISTRATOR-C Karin Myles Attending Provider [phone] Dr. Carson Alcantar Attending Provider [phone] Dr. Carson Alcantar Other Provider [phone] Dr. Clifton Hung Primary Care Provider Dr. Clifton Hung Referring Provider Roof HOSPICE ADMINISTRATOR, HOSPICE ADMINISTRATOR-C Octaviano Viera Attending Provider Sanket HOSPICE ADMINISTRATOR, HOSPICE ADMINISTRATOR-Marleny Myles Attending Provider [phone] Dr. Clifton Hung Primary Care Provider Dr. Clifton Hung Referring Provider Roof HOSPICE ADMINISTRATOR, HOSPICE ADMINISTRATOR-C Octaviano H Attending Provider Roof HOSPICE ADMINISTRATOR, HOSPICE ADMINISTRATOR-C Octaviano H Referring Provider Roof HOSPICE ADMINISTRATOR, HOSPICE ADMINISTRATOR-C Octaviano H Other Provider Dr. Karsten Zarate Attending Provider Dr. Clifton Hung Primary Care Provider Dr. Clifton Hung Referring Provider Roof HOSPICE ADMINISTRATOR, HOSPICE ADMINISTRATOR-C Octaviano H Attending Provider Dr. Karsten Zarate Attending Provider Roof HOSPICE ADMINISTRATOR, HOSPICE ADMINISTRATOR-C Octaviano H Referring Provider Dr. Carson Alcantar Attending Provider [phone] Obey MONK, Renata Unavailable Dr. Clifton Hung Primary Care Provider Yandel HEALY, KYMBERLYC Otcaviano Viera Attending Provider Dr. Clifton Hung Referring [...] Referring Unavailable Dick, Clifton Referring Unavailable Elliot, Chocorua Attending Unavailable Dick, Clifton Primary Care Unavailable [...] DICK, CLIFTON A Primary Care Unavailable Knoble REED OR WIND INSTRUMENT REPAIRER.TOOL MACHINE SETUP OPERATOR, Francine Unavailable Bear MENDOZA, Cherise Unavailable Knjudy REED OR WIND INSTRUMENT REPAIRER.TOOL MACHINE SETUP OPERATOR, Francine Unavailable Bear MENDOZA, Cherise Unavailable BENDARAM, [...] DICK, CLIFTON A Primary Care Unavailable BENDARAM, ALEAX HURST Attending Unavaila ble DICK, CLIFTON A [...] MATUTE Attending UnavailCLIFTON Núñez Primary Care Unavailable CILFTON HUNG Primary Care Unavailable ALEXA MATUTE Referring Unavaila CLIFTON Person Primary Care Unavailable CHAD MARIEE Referring Unavailable Allergies Allergy Classification Reported Allergen(s) Allergy Type Date of Onset Reaction(s) Facility (20 sources) cephalexin; Translations: [CEPHALEXIN] drug allergy 6 Other: See Comments [facility] Work Phone: (20 sources) Acetaminophen / HYDROcodone; Translations: [HYDROCODONE-ACET AMINOPHEN] Drug Allergy 6 Itching [facility] Work Phone: (20 sources) atorvastatin; Translations: [ATORVASTATIN] Drug Allergy 3 Other: See Comments [facility] Work Phone: (20 sources) Lovastatin; Translations: [LOVASTATIN] Drug Allergy 3 Other: See Comments [facility] Work Phone: (20 sources) rosuvastatin; Translations: [ROSUVASTATIN] Drug Allergy 0 Myalgia [facility] Work Phone: (20 sources) Ticagrelor; Translations: [TICAGRELOR] Drug Allergy 7 Shortness of Breath [facility] Work Phone: (13 sources) Cephalexin; Translations: [cephalexin monohydrate] Drug Allergy 2 Other [facility] (12 sources) HYDROcodone Drug Allergy 2 Hives [facility] (12 sources) Pravastatin Drug Allergy 2 myalgias [facility] (1 source) Codeine Drug Allergy [facility] (1 source) atorvastatin Drug Allergy 4 [facility] (1 source) HYDROcodone Drug Allergy 4 [facility] (1 source) Lovastatin Drug Allergy 4 [facility] (1 source) Pravastatin Drug Allergy 4 [facility] (1 source) rosuvastatin Drug Allergy 4 [facility] (1 source) Ticagrelor Drug Allergy 4 [facility] Medications Current Medications Medication Drug [...] th twice daily for 10 days. amylase 024898 unt / lipase 91221 unt / protease 279842 unt delayed release oral capsule (20 sources) Start: 03-04-2023 take 2-3 capsules by mouth at bedtime eswlih-qfowxpuc-iip lase (CREON 36) 36,000-114,000- 180,000 unit delayed release capsule Take 2-3 capsules by mouth with meals and at bedtime. 03/04/2023 Active Start: 03-04-2023 lipase-proteas e-amylase (CREON 36) 36,000-114,000- 180,000 unit delayed release capsule .COMPLEX 03/04/2023 Active Start: 12-10-2022 End: 04-01-2023 kwawcd-ckddeaak-yqkjvba (CRE ON 36) 36,000-114,000- 180,000 unit delayed release capsule .COMPLEX 0 03/04/2023 Active Start: 12-10-2022 End: 04-25-2024 take 33185-92446 capsules by mouth three times daily at mealtime Nkfvzq-Etlxczvc-Dcieslg (Creon) 12,000-38,000 -60,000 unit capsule,delayed release(DR/EC) Discontinued [...] Comment on above: Take 1 capsule by [facility] once daily. clobetasol propionate 0.0005 mg/mg topical [...] once daily. Take 1 capsule by [facility] once daily. iv contrast (will be [...] 1000 MG TABS every night METFORMIN HCL [id number] Nancy Myers PA-C Start: 01-05-2017 take 1 tablet by le th twice daily METFORMIN HCL 500 MG TABS One tablet by mouth twice daily METFORMIN HCL [id number] Ron Gomez MD Start: 09-23-2016 End: 10-22-2017 [...] once daily METOPROLOL SUCCINATE ER 50 MG [id number]-SFK One tablet by mouth daily METOPROLOL SUCCINATE [id number] Nancy Myers PA-C Start: 01-05-2017 take 0.5 tablet by m out twice daily METOPROLOL TARTRATE 50 MG TABS 1/2 tablet by mouth twice daily METOPROLOL TARTRATE [id number] Ron Gomez MD Start: 09-23-2016 End: 10-22-2017 [...] Comment on above: Take 1 capsule by [facility] twice daily for 7 days. nitroglycerin 0.4 [...] on above: Take 1 capsule by [facility] once daily. OTC NUTRITIONAL SUPPLEMENT (20 [...] Comment on above: [facility] tam[facility] 20 mg oral tablet [...] Comment on above: [facility]. Completed/Discontinued Medications [...] Start: 04-23-2017 take 4 tablets by [facility] once daily, then take 1 tablet by mouth, then take 1 tablet by mouth once daily PLAVIX 75 MG TABS Four tablets by mouth on day 1 then One tablet by mouth daily CLOPIDOGREL BISULFATE [id number] Ron Gomez MD cyclobenzaprine hydrochloride 10 mg [...] le once daily CARDIZEM CD 120 MG [id number] One tablet by mouth daily (on HOLD) DILTIAZEM HCL COATED BEADS [id number] Ron Gomez MD Start: 01-05-2017 take 1 tablet by le once daily CARDIZEM CD 180 MG [id number] One tablet by mouth daily DILTIAZEM HCL COATED BEADS [id number] Nancy Myers PA-C Start: 09-23-2016 End: 06-30-2017 [...] TRULICITY 1.5 MG/0.5ML SOPN as directed DULAGLUTIDE [id number] Nancy Myers PA-C Start: 01-05-2017 TRULICITY 1.5 MG/0.5ML SOPN as directed DULAGLUTIDE [id number] Nancy Myers PA-C dulaglutide (TRULICITY) 3 mg/0.5 [...] by mouth daily OMEGA-3 FATTY ACIDS CAPS [id number] Nancy Myers PA-C Start: 01-05-2017 take 1 tablet by le th once daily FISH OIL CAPS One tablet by mouth daily OMEGA-3 FATTY ACIDS CAPS [id number] Nancy Myers PA-C fluconazole 150 mg oral [...] 37.5-25 MG CAPS One tablet by [facility] daily TRIAMTERENE-HCTZ [id number] Nancy Rodriguez RN levoFLOXacin 500 mg oral [...] 7 LORAZEPAM 1 MG TABS needed LORAZEPAM [id number] Octaviano Humphries HOSPICE ADMINISTRATOR magnesium sulfate 100 mg oral capsule (20 [...] TABLET PO DAILY May 28, 2022 12:00am [place]-3 Fatty Acids (20 sources) Start: 11-24-2021 End: 05-28-2022 take 500 mg by mouth at bedtime [place]-3 Fatty Acids Discontinued 500 MG PO AT BEDTIME November 24, 2021 2:43pm May 28, 2022 1:28pm Start: 11-24-2021 End: 05-28-2022 take 500 mg by mouth at bedtime [place]-3 Fatty Acids Di scontinued 500 MG PO AT BEDTIME November 24, 2021 3:43pm May 28, 2022 2:28pm Start: 01-01-2017 End: 11-24-2021 take 500 mg by mouth at bedtime [place]-3 Fatty Acids Di scontinued 500 MG PO AT BEDTIME January 01, 2017 12:00am November 24, 2021 2:44pm Start: 01-01-2017 End: 11-24-2021 take 500 mg by mouth at bedtime [place]-3 Fatty Acids Di scontinued 500 MG PO [...] One tablet by mouth daily PROBIOTIC PRODUCT [id number] Nancy Myers PA-C PROBIOTIC PRODUCT (5 sources) Start: 01-05-2017 take 1 tablet by mouth once daily PROBIOTIC DAILY CAPS One tablet by mouth daily PROBIOTIC PRODUCT [id number] Nancy Myers PA-C Start: 01-05-2017 take 1 tablet by le th once daily PROBIOTIC DAILY CAPS One tablet by mouth daily PROBIOTIC PRODUCT [id number] Nancy Myers PA-C rosuvastatin calcium 10 mg [...] daily (complete current supply then STOP) TICAGRELOR [id number] Octaviano Maximiliano Yandel HOSPICE ADMINISTRATOR Start: 01-05-2017 take 1 tablet by le th twice daily BRILINTA 60 MG TABS One tablet by mouth twice daily TICAGRELOR [id number] Nancy Myers PA-C vitamin b6 100 mg [...] disease (20 sources) Atherosclerotic heart disease of [place] coronary artery without angina pectoris; Translations: [Coronary [...] sources) Long-term current use of tamoxifen; Translations: [director long term care (current) use of selective estrogen receptor modulators (SERMs)] Episodic Other aftercare (1 source) director long term care (current) use of selective estrogen receptor modulators [...] (5 sources) Long-term drug therapy; Translations: [Other fci (current) drug therapy] Onset: 7 01-20-2017 Unclassified [...] 07-04-2024 Episodic Other aftercare (7 sources) Other rat exterminator (current) drug therapy; Translations: [Other fci (current) drug therapy] Onset: 01-20-2017 01-20-2017 Episodic [...] , Intermediate >32 , Resistant >64 Abnormal [facility] Comment on above: Performed By: #### 6 30-4 ####[facility] LABCLIA [id number] [address] [facility] CNOVon 04-24-2025 CNOV Office Visit (FAMPWS ) AUSTINDOM Vel ([id number]) 1955 F Date Time Provider Department 04/24/25 8:00 AM FRANCINE MADRID During your visit today, we recorded the following information about you: Pulse Blood pressure Weight 68/minute 138/76 63 kg Francine Madrid, REED OR WIND INSTRUMENT REPAIRER.TOOL MACHINE SETUP OPERATOR 04/24/2025 8:07 AM Signed Chief Complaint Patient [...] disturbance 06/2017 Arthritis tendonitis, arthritis 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 Has been on provigil for 5-10 yrs Obstructive sleep apnea on CPAP Sibilia Other skin changes 09/26/2021 Seeing derm Pancreatic insufficiency ([facility]) 04/08/[address] Alcantar Psoriasis RLS (restless legs syndrome) 02/22/[address] Aysha Laurent with ocular symptoms S/P angioplasty with stent 01/09/2017 stents to mid and proximal left anterior descending Art, and angio of ostium of #2 diagonal Scalp itch Seasonal allergies Dr Pompa Type 2 diabetes mellitus with hyperlipidemia ([facility]) 04/17/2024 Uterine fibroid 1994? Hysterectomy at age 41 Uterine polyp No longer an issue Vitamin D deficiency 2012 Well adult exam 01/16/2016 Last done: 09/08/2018 Previous Surgical History PAST SURGICAL HISTORY Procedure Laterality Date 2D ECHO (EXEP) 06/30/2017 EF=65%, trivial FL, TI and 1+ PI Unchanged from 04/2017 2D ECHO (EXEP) 05/14/2021 EF=60%, 1+ TI, trival FL, AI, PI 2D ECHO (EXEP) 09/16/2021 EF=60%, [...] Artery Dise (more content not included)... Normal [facility] UA DIP, URINE (POC)on 2024 BILIRUBIN UA (POCT) Small Abnormal Negative [facility] CLARITY UA (POCT) Clear [facility] COLOR UA (POCT) Yellow [facility] GLUCOSE UA (POCT) Negative Negative mg/dL [facility] Hemoglobin Ql (U) Large Abnormal Negative [facility] Interpretation and review of laboratory results Abnormal [facility] KETONE UA (POCT) Trace Negative mg/dL [facility] LEUKOCYTES UA (POCT) Small Abnormal Negative [facility] NITRITE UA (POCT) Negative Negative [facility] PH UA (POCT) 5.5 4.5 - 8.0 [facility] Protein Ql (U) >=300 Abnormal Negative mg/dL [facility] SPECIFIC GRAVITY UA (POCT) >=1.030 1.005 - 1.030 [facility] UROBILINOGEN UA (POCT) 0.2 Normal E.U./d L [facility] Location:[facility], [address] [place] [address], [place], [place], [id number] [place] [address] POINT OF CARE [facility] CNOVon 04-19-2025 CNOV Office Visit (FAMPWS ) DOM AVILA ([id number]) 1955 F Date Time Provider Department 04/19/25 9:00 AM [facility] During your visit today, we recorded [...] disturbance 06/2017 Arthritis tendonitis, arthritis 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 Normal [facility] CNOVon 04-09-2025 CNOV Office Visit (OBGYWM ) AUSTINDOM Vel ([id number]) 1955 F Date Time Provider Department 04/09/25 9:30 AM SIMA DUMONT OBDORIAN During your visit today, we recorded the following information about you: Blood pressure Weight Height 156/90 64.9 kg 1.59 m Sima Dumont APRN.CNP 04/09/2025 9:59 AM Signed Exhibitions Curator offered: Patient declines. Dom is a 69 year old who presents for an annual gynecologic exam without complaints. Nodule on adrenal gland - seeing before school. 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 Has been on provigil for 5-10 yrs Obstructive sleep apnea on CPAP Sibilia Other skin changes 09/26/2021 Seeing yosef Pancreatic insufficiency ([facility]) 04/08/[address] Alcantar Psoriasis RLS (restless legs syndrome) 02/22/[address] Aysha Laurent with ocular symptoms S/P angioplasty with stent 01/09/2017 stents to mid and proximal left anterior descending Art, and angio of ostium of #2 diagonal Scalp itch Seasonal allergies Dr Pompa Type 2 diabetes mellitus with hyperlipidemia ([facility]) 04/17/2024 Uterine fibroid 1994? Hysterectomy at age 41 Uterine polyp No longer an issue Vitamin D deficiency 2012 Well adult exam 01/16/2016 Last done: 09/08/2018 PAST SURGICAL HISTORY Procedure Laterality Date 2D ECHO (EXEP) 06/30/2017 EF=65%, trivial FL, TI and 1+ PI Unchanged from 04/2017 2D ECHO (EXEP) 05/14/2021 EF=60%, 1+ TI, trival FL, AI, PI 2D ECHO (EXEP) 09/16/2021 EF=60%, [...] SURGICAL H (more content not included)... Normal [facility] 25(OH)D3 SerPl-ncon 2024 25-hydroxyvitamin D3 [Mass/Vol] 29.6 ng/mL Low 31.0-80.0 [facility] Comment on above: Order Comment: Speci men Type: BLOOD SPECIMENOrdering Facility: [facility] Address: [address] [place] [address] Performed By: #### 1 989-3 ####[facility] LABIA [id number] [place] [address] [place] ALBUMIN/CREATININE RATIO, UR INEon 04-06-2025 Albumin DL <= 20 mg/L (U) [Mass/Vol] mg/dL Normal [facility] Comment on above: Order Comment: Speci men Type: URINE SPECIMENOrdering Facility: [facility] Address: [address] [place] [address] Performed By: #### U ACR ####[facility] [id number] [place] [address] [place] Albumin/Creatinine (U) [Mass ratio] <15 Normal <30 [facility] Comment on above: Order Comment: Speci men Type: URINE SPECIMENOrdering Facility: [facility] Address: [address] [place] [address] Result Comment: Adul t Male and Female Nephrotic Criteria: <30 mg/g is considered normal to mildly increased 30-300 mg/g is considered moderately increased >300 mg/g is considered severely increased KDIGO. (2013). KDIGO 2012 Clinical Practice Guideline for the Evaluation and Management of Chronic Kidney Disease. Official Journal of the International Society of Nephrology, 3(1), 1-150. Performed By: #### U ACR ####[facility] LABIA [id number] [place] [id number] [place] Creatinine (U) [Mass/Vol] 81.5 mg/dL Normal 20.0-300.0 [facility] Comment on above: Order Comment: Speci men Type: URINE SPECIMENOrdering Facility: [facility] Address: [address] [place] [address] Performed By: #### U ACR ####[facility] LABCLIA [id number] [place] [address] [place] CBC W Auto Differential pane l (Bld)on 04-06-2025 Basophils (Bld) [#/Vol] 0.03 10*3/uL Normal <0.11 [facility] Comment on above: Order Comment: Speci men Type: BLOOD SPECIMENOrdering Facility: [facility] Address: [address] [place] [address] Performed By: #### 5 7021-8 ####[facility] [id number] [place] [address] [place] Basophils/100 WBC (Bld) 0.3 % Normal [facility] Comment on above: Order Comment: Speci men Type: BLOOD SPECIMENOrdering Facility: [facility] Address: [address] [place] [address] Performed By: #### 5 7021-8 ####[facility] [id number] [place] [address] [place] Differential cell count method Nom (Bld) Auto Normal [facility] Comment on above: Order Comment: Speci men Type: BLOOD SPECIMENOrdering Facility: [facility] Address: [address] [place] [address] Performed By: #### 5 7021-8 ####[facility] [id number] [place] [address] [place] Eosinophils (Bld) [#/Vol] 0.12 10*3/uL Normal <0.46 [facility] Comment on above: Order Comment: Speci men Type: BLOOD SPECIMENOrdering Facility: [facility] Address: [address] [place] [address] Performed By: #### 5 7021-8 ####[facility]ACHNADIALIA [id number] [place] [address] [place] Eosinophils/100 WBC (Bld) 1.4 % Normal [facility] Comment on above: Order Comment: Speci men Type: BLOOD SPECIMENOrdering Facility: [facility] Address: [address] [place] [address] Performed By: #### 5 7021-8 ####[facility]ITALGREYSONLILLIANA [id number] [place] [address] [place] Erythrocyte distribution width (RBC) [Ratio] 13.8 % Normal 11.5-15.0 [facility] Comment on above: Order Comment: Speci men Type: BLOOD SPECIMENOrdering Facility: [facility] Address: [address] [place] [address] Performed By: #### 5 7021-8 ####[facility] [id number] [place] [address] [place] Hematocrit (Bld) [Volume fraction] 37.9 % Normal 36.0-46.0 [facility] Comment on above: Order Comment: Speci men Type: BLOOD SPECIMENOrdering Facility: [facility] Address: [address] [place] [address] Performed By: #### 5 7021-8 ####[facility]ITAL[facility]CLIA [id number] [place] [address] [place] Hemoglobin (Bld) [Mass/Vol] 12.4 g/dL Normal 11.5-15.5 [facility] Comment on above: Order Comment: Speci men Type: BLOOD SPECIMENOrdering Facility: [facility] Address: [address] [place] [address] Performed By: #### 5 7021-8 ####[facility]ITAL[facility]CLIA [id number] [place] [address] [place] Immature granulocytes (Bld) [#/Vol] 0.03 10*3/uL Normal <0.10 [facility] Comment on above: Order Comment: Speci men Type: BLOOD SPECIMENOrdering Facility: [facility] Address: [address] [place] [address] Performed By: #### 5 7021-8 ####[facility] [id number] [place] [address] [place] Immature granulocytes/100 WBC (Bld) 0.3 % Normal [facility] Comment on above: Order Comment: Speci men Type: BLOOD SPECIMENOrdering Facility: [facility] Address: [address] [place] [address] Performed By: #### 5 7021-8 ####[facility] [id number] [place] [address] [place] Lymphocytes (Bld) [#/Vol] 2.26 10*3/uL Normal 1.00-4.00 [facility] Comment on above: Order Comment: Speci men Type: BLOOD SPECIMENOrdering Facility: [facility] Address: [address] [place] [address] Performed By: #### 5 7021-8 ####[facility] [id number] [place] [address] [place] [place] Lymphocytes/100 WBC (Bld) 26.3 % Normal [facility] Comment on above: Order Comment: Speci men Type: BLOOD SPECIMENOrdering Facility: [facility] Address: [address] [place] [address] Performed By: #### 5 7021-8 ####[facility] [id number] [place] [address] [place] MCH (RBC) [Entitic mass] 30.4 pg Normal 26.0-34.0 [facility] [place] Comment on above: Order Comment: Speci men Type: BLOOD SPECIMENOrdering Facility: [facility] Address: [address] [place] [address] Performed By: #### 5 7021-8 ####[facility] LETYWNCLIA [id number] [place] [address] [place] MCHC (RBC) [Mass/Vol] 32.7 g/dL Normal 30.5-36.0 [facility] Comment on above: Order Comment: Speci men Type: BLOOD SPECIMENOrdering Facility: [facility] Address: [address] [place] [address] Performed By: #### 5 7021-8 ####[facility]ITALNCYADIRAA [id number] [place] [address] [place] MCV (RBC) [Entitic vol] 92.9 fL Normal 80.0-100.0 [facility] [place] Comment on above: Order Comment: Speci men Type: BLOOD SPECIMENOrdering Facility: [facility] Address: [address] [place] [address] Performed By: #### 5 7021-8 ####[facility]ALL[facility] [id number] [place] [address] [place] Monocytes (Bld) [#/Vol] 0.73 10*3/uL Normal <0.87 [facility] [place] Comment on above: Order Comment: Speci men Type: BLOOD SPECIMENOrdering Facility: [facility] Address: [address] [place] [address] Performed By: #### 5 7021-8 ####[facility]ITALNCLIA [id number] [place] [address] [place] Monocytes/100 WBC (Bld) 8.5 % Normal [facility] [place] Comment on above: Order Comment: Speci men Type: BLOOD SPECIMENOrdering Facility: [facility] Address: [address] [place] [address] Performed By: #### 5 7021-8 ####[facility]ALL[facility] [id number] [place] [address] [place] Neutrophils (Bld) [#/Vol] 5.41 10*3/uL Normal 1.45-7.50 [facility] [place] Comment on above: Order Comment: Speci men Type: BLOOD SPECIMENOrdering Facility: [facility] Address: [address] [place] [address] Performed By: #### 5 7021-8 ####[facility] [id number] [place] [address] [place] Neutrophils/100 WBC (Bld) 63.2 % Normal [facility] [place] Comment on above: Order Comment: Speci men Type: BLOOD SPECIMENOrdering Facility: [facility] Address: [address] [place] [address] Performed By: #### 5 7021-8 ####[facility] [id number] [place] [address] [place] Nucleated RBC (Bld) [#/Vol] 10*3/uL Normal <0.01 [facility] [place] Comment on above: Order Comment: Speci men Type: BLOOD SPECIMENOrdering Facility: [facility] Address: [address] [place] [address] Performed By: #### 5 7021-8 ####[facility] [id number] [place] [address] [place] Nucleated RBC/100 WBC (Bld) [Ratio] 0.0 /100 WBC Normal [facility] [place] Comment on above: Order Comment: Speci men Type: BLOOD SPECIMENOrdering Facility: [facility] Address: [address] [place] [address] Performed By: #### 5 7021-8 ####[facility]OS[facility]ITALNCLI [id number] [place] [address] [place] Platelet mean volume (Bld) [Entitic vol] 9.6 fL Normal 9.0-12.7 [facility] [place] Comment on above: Order Comment: Speci men Type: BLOOD SPECIMENOrdering Facility: [facility] Address: [address] [place] [address] Performed By: #### 5 7021-8 ####[facility]ITALNCLIA [id number] [place] [address] [place] Platelets (Bld) [#/Vol] 178 10*3/uL Normal 150-400 [facility] [place] Comment on above: Order Comment: Speci men Type: BLOOD SPECIMENOrdering Facility: [facility] Address: [address] [place] [address] Performed By: #### 5 7021-8 ####[facility]ITALNCAMER[facility] [id number] [place] [address] [place] RBC (Bld) [#/Vol] 4.08 10*6/uL Normal 3.90-5.20 [facility] Comment on above: Order Comment: Speci men Type: BLOOD SPECIMENOrdering Facility: [facility] Address: [address] [place] [address] Performed By: #### 5 7021-8 ####[facility] HOSPITALNCA [id number] [place] [address] [place] WBC (Bld) [#/Vol] 8.58 10*3/uL Normal 3.70-11.00 [facility] Comment on above: Order Comment: Speci men Type: BLOOD SPECIMENOrdering Facility: [facility] Address: [address] [place] [address] Performed By: #### 5 7021-8 ####[facility]ITALNCLIA [id number] [place] [address] [place] Comprehensive metabolic 2000 panelon 04-06-2025 Albumin [Mass/Vol] 3.7 g/dL Low 3.9-4.9 [facility] Comment on above: Order Comment: Speci men Type: BLOOD SPECIMENOrdering Facility: [facility] Address: [address] [place] [address] Performed By: #### 1 9123-9, 43901-4 ####[facility] MILLTOWNCLIA [id number] [place] [address] [place] ALP [Catalytic activity/Vol] 49 U/L Normal 34-123 [facility] [place] Comment on above: Order Comment: Speci men Type: BLOOD SPECIMENOrdering Facility: [facility] Address: [address] [place] [address] Performed By: #### 1 9123-9, 21327-9 ####[facility] MILLTOWNCLIA [id number] [place] [address] [place] ALT [Catalytic activity/Vol] 11 U/L Normal 7-38 [facility] [place] Comment on above: Order Comment: Speci men Type: BLOOD SPECIMENOrdering Facility: [facility] Address: [address] [place] [address] Performed By: #### 1 9123-9, 75572-6 ####[facility] HOSPITALWNCLIA [id number] [place] [address] [place] Anion gap [Moles/Vol] 11 mmol/L Normal 8-15 [facility] Comment on above: Order Comment: Speci men Type: BLOOD SPECIMENOrdering Facility: [facility] Address: [address] [place] [address] Performed By: #### 1 9123-9, 11519-6 ####[facility] HOSPITALWNCLIA [id number] [place] [address] [place] AST [Catalytic activity/Vol] 17 U/L Normal 13-35 [facility] Comment on above: Order Comment: Speci men Type: BLOOD SPECIMENOrdering Facility: [facility] Address: [address] [place] [address] Performed By: #### 1 9123-9, 17436-8 ####[facility] MILLTOWNCLIA [id number] [place] [address] [place] Bilirubin [Mass/Vol] 0.3 mg/dL Normal 0.2-1.3 [facility] Comment on above: Order Comment: Speci men Type: BLOOD SPECIMENOrdering Facility: [facility] Address: [address] [place] [address] Performed By: #### 1 9123-9, 70329-2 ####[facility] MILLTOWNCLIA [id number] [place] [address] [place] Calcium [Mass/Vol] 9.0 mg/dL Normal 8.5-10.2 [facility] Comment on above: Order Comment: Speci men Type: BLOOD SPECIMENOrdering Facility: [facility] Address: [address] [place] [address] Performed By: #### 1 9123-9, 60688-9 ####[facility]'S HOSPITALWNCLIA [id number] [place] [address] [place] Chloride [Moles/Vol] 104 mmol/L Normal 98-107 [facility] Comment on above: Order Comment: Speci men Type: BLOOD SPECIMENOrdering Facility: [facility] Address: [address] [place], [place] [address] Performed By: #### 1 9123-9, ####[facility] MILLTOWNCLIA [id number] [place] [address] [place] CO2 [Moles/Vol] 26 mmol/L Normal 22-30 [facility] [place] Comment on above: Order Comment: Speci men Type: BLOOD SPECIMENOrdering Facility: [facility] Address: [address] [place] [address] Performed By: #### 1 9123-9, 99155-4 ####[facility]ITALNCLIA [id number] [place] [address] [place] Creatinine [Mass/Vol] 0.79 mg/dL Normal 0.58-0.96 [facility] Comment on above: Order Comment: Taran acevedo Type: BLOOD SPECIMENOrdering Facility: [facility] Address: [address] [place] [address] Performed By: #### 1 9123-9, 46286-3 ####[facility] [id number] [place] [address] [place] Creatinine and Glomerular filtration rate.predicted panel (S/P/Bld) 82 mL/min/1.73m??? Normal >=60 [facility] Comment on above: Order Comment: Taran acevedo Type: BLOOD SPECIMENOrdering Facility: [facility] Address: [address] [place] [address] Result Comment: Richa mated Glomerular Filtration Rate [...] actual GFR. Performed By: #### 1 9123-9, 42255-9 ####[facility]ITALLIA [id number] [place] [address] [place] Glucose [Mass/Vol] 115 mg/dL High 74-99 [facility] Comment on above: Order Comment: Spectina men Type: BLOOD SPECIMENOrdering Facility: [facility] Address: [address] [place] [id number] Result Comment: The [place] Diabetes Association (ADA) provides guidance for cutoff [...] Standards of Medical Care in Diabetes 2016, [place] Diabetes Association. Diabetes Care. 2016.39(Suppl 1). Performed By: #### 1 9123-9, ####[facility] MILLTOWGREYSONLIA [id number] [place] [address] [place] Potassium [Moles/Vol] 4.0 mmol/L Normal 3.7-5.1 [facility] Comment on above: Order Comment: Speci men Type: BLOOD SPECIMENOrdering Facility: [facility] Address: [address] [place] [address] Performed By: #### 1 91239, ####[facility] HOSPITALWGREYSONLIArt [id number] [place] [address] [place] Protein [Mass/Vol] 6.6 g/dL Normal 6.3-8.0 [facility] Comment on above: Order Comment: Speci men Type: BLOOD SPECIMENOrdering Facility: [facility] Address: [address] [place] [address] Performed By: #### 1 9123-9, ####[facility]'S HOSPITALWGREYSONLIA [id number] [place] [address] [place] Sodium [Moles/Vol] 141 mmol/L Normal 136-144 [facility] Comment on above: Order Comment: Speci men Type: BLOOD SPECIMENOrdering Facility: [facility] Address: [address] [place] [address] Performed By: #### 1 9123-9, ####[facility]'S HOSPITALWGREYSONLIA [id number] [place] [address] [place] Urea nitrogen [Mass/Vol] 15 mg/dL Normal 7-21 [facility] Comment on above: Order Comment: Taran acevedo Type: BLOOD SPECIMENOrdering Facility: [facility] Address: [address] [place] [address] Performed By: #### 1 9123-9, 73952-3 ####[facility] [id number] [place] [address] [place] HbA1c (Bld)on 04-06-2025 Average glucose Estimated from glycated hemoglobin (Bld) [Mass/Vol] 160 mg/dL Normal [facility] Comment on above: Order Comment: Taran acevedo Type: BLOOD SPECIMENOrdering Facility: [facility] Address: [address] [place] [address] Result Comment: eAG: (Estimated average glucose) is a calculated value from HgbA1c and is aircraft sales representative of the average blood glucose level in the last 2-3 month period. Performed By: #### 5 5454-3 ####[facility] LABCLIA [id number] [place] [address] [place] HbA1c (Bld) [Mass fraction] 7.2 % High 4.3-5.6 [facility] Comment on above: Order Comment: Taran acevedo Type: BLOOD SPECIMENOrdering Facility: [facility] Address: [address] [place] [address] Result Comment: Amer [place] Diabetes Association guidelines indicate that patients with HgbA1c in the range 5.7-6.4% are at increased risk for development of diabetes, and intervention by lifestyle modification may be beneficial. HgbA1c greater or equal to 6.5% is considered diagnostic of diabetes. Performed By: #### 5 5454-3 ####[facility] LABCLIA [id number] [place] [id number] [place] LIPID PANEL, NONFASTINGon Cholesterol [Mass/Vol] 152 mg/dL Normal <200 [facility] Comment on above: Order Comment: Taran acevedo Type: BLOOD SPECIMENOrdering Facility: [facility] Address: [address] [place] [address] Result Comment: <200 mg/dL, Desirable 200-239 mg/dL, Borderline high >239 mg/dL, High Performed By: #### 2 132-9, 3016-3, LIPNF ####[facility] LABCLIA [id number] [facility] [id number] [place], [place] [address] [place] HDL CHOLESTEROL, NF 38 mg/dL Low >39 [facility] Comment on above: Order Comment: Speci men Type: BLOOD SPECIMENOrdering Facility: [facility] Address: [address] [place] [address] Result Comment: 40-5 9 mg/dL, Acceptable >59 mg/dL, High: Negative risk factor for coronary heart disease <40 mg/dL, Low: Positive risk factor for coronary heart disease Performed By: #### 2 132-9, 3016-3, LIPNF ####[facility] LABCLIA [id number] [address] [place] LDL CHOLESTEROL CALCULATED, NF 94 mg/dL Normal <100 [facility] Comment on above: Order Comment: Speci men Type: BLOOD SPECIMENOrdering Facility: [facility] Address: [address] [place] [address] Result Comment: <100 mg/dL, Optimal 100-129 mg/dL, Near optimal/above optimal 130-159 mg/dL, Borderline high 160-189 mg/dL, High >189 mg/dL, Very high Secondary prevention optimal LDL Cholesterol levels are recommended to be <70 mg/dL LDL cholesterol is calculated using the Silverio-NIH equation. Performed By: #### 2 132-9, 3016-3, LIPNF ####[facility] LABCLIA [id number] [place] [id number] [place] LDL/HDL RATIO, NF 2.47 mg/dL Normal <2.54 [facility] Comment on above: Order Comment: Speci men Type: BLOOD SPECIMENOrdering Facility: [facility] Address: [address] [place] [address] Result Comment: Michaelle mayes: 1. National Cholesterol Education Program ATP III Guideline At-A-Glance Quick Desk Reference: National Heart, Lung, and Blood [place]. National Institutes of Health. 2001: NIH Publication No. 01-3305. 2. An International Atherosclerosis Society position paper: global recommendations for the management of dyslipidemia: executive summary, Atherosclerosis. 2014: 232(2):410-413. Performed By: #### 2 132-9, 3016-3, LIPNF ####[facility] LABCLIA [id number] [place] [address] [place] NON HDL CHOL, NF 114 mg/dL Normal <130 [facility] Comment on above: Order Comment: Speci men Type: BLOOD SPECIMENOrdering Facility: [facility] Address: [address] [place] [address] Result Comment: <130 mg/dL, Optimal 130-159 mg/dL, Near optimal/above optimal 160-189 mg/dL, Borderline high 190-219 mg/dL, High >219 mg/dL, Very high Secondary prevention optimal non HDL Cholesterol levels are recommended to be <100 mg/dL Performed By: #### 2 132-9, 3016-3, LIPNF ####[facility] LABCLIA [id number] [place] [address] [place] T CHOL/HDL RATIO NF 4.00 mg/dL Normal <5.10 [facility] Comment on above: Order Comment: Speci men Type: BLOOD SPECIMENOrdering Facility: [facility] Address: [address] [place] [address] Performed By: #### 2 132-9, 3016-3, LIPNF ####[facility] LABCLIA [id number] [place] [id number] [place] TRIGLYCERIDES, NF 106 mg/dL Normal <150 [facility] Comment on above: Order Comment: Speci men Type: BLOOD SPECIMENOrdering Facility: [facility] Address: [address] [place] [address] Result Comment: <150 mg/dL, Normal 150-199 mg/dL, Borderline high 200-499 mg/dL, High >499 mg/dL, Very high Performed By: #### 2 132-9, 3016-3, LIPNF ####[facility] LABCLIA [id number] [place] [address] [place] VLDL CHOLESTEROL, NF 17 mg/dL Normal <30 [facility] Comment on above: Order Comment: Speci men Type: BLOOD SPECIMENOrdering Facility: [facility] Address: [address] [place] [address] Performed By: #### 2 132-9, 3016-3, LIPNF ####[facility] LABCLIA [id number] [place] [address] [place] Magnesium SerPl-mCncon 04-06 Magnesium [Mass/Vol] 1.6 mg/dL Low 1.7-2.3 [facility] Comment on above: Order Comment: Speci men Type: BLOOD SPECIMENOrdering Facility: [facility] Address: [address] [place] [address] Performed By: #### 1 9123-9, 69578-7 ####[facility] [id number] [place] [address] [place] TSH SerPl-aCncon 04-06-2025 TSH Qn 3.870 m[IU]/L Normal 0.270-4.200 [facility] Comment on above: Order Comment: Speci men Type: BLOOD SPECIMENOrdering Facility: [facility] Address: [address] [place] [address] Performed By: #### 2 132-9, 3016-3, LIPNF ####[facility] LABCLIA [id number] [place] [id number] [place] Urinalysis complete panel (U )on 04-06-2025 BACTERIA UL 1513.2 uL High Negative [facility] Comment on above: Order Comment: Speci men Type: URINE SPECIMENOrdering Facility: [facility] Address: [address] [place] [address] Performed By: #### 2 4356-8 ####[facility] LABCLIA [id number] [address], [facility]95 [place] Bilirubin Ql (U) Negative Normal Negative [facility] Comment on above: Order Comment: Speci men Type: URINE SPECIMENOrdering Facility: [facility] Address: [address] [place] [address] Performed By: #### 2 4356-8 ####[facility] LABCLIA [id number] [place] [address] [place] Clarity (Unsp spec) Clear Normal Clear [facility] Comment on above: Order Comment: Speci men Type: URINE SPECIMENOrdering Facility: [facility] Address: [address] [place] [address] Performed By: #### 2 4356-8 ####[facility] LABCLIA [id number] [place] [address] [place] Color (U) Yellow Normal Yellow [facility] Comment on above: Order Comment: Speci men Type: URINE SPECIMENOrdering Facility: [facility] Address: [address] [place] [address] Performed By: #### 2 4356-8 ####[facility] LABCLIA [id number] [place] [id number] [place] Epithelial cells LM.HPF (Urine sed) [#/Area] Moderate Normal [facility] Comment on above: Order Comment: Speci men Type: URINE SPECIMENOrdering Facility: [facility] Address: [address] [place] [address] Performed By: #### 2 4356-8 ####[facility] LABCLIA [id number] [place] [id number] [place] Glucose Test strip (U) [Mass/Vol] Negative Normal Negative [facility] Comment on above: Order Comment: Speci men Type: URINE SPECIMENOrdering Facility: [facility] Address: [address] [place] [address] Performed By: #### 2 4356-8 ####[facility] LABCLIA [id number] [place] [address] [place] Hemoglobin Ql (U) Negative Normal Negative [facility] Comment on above: Order Comment: Speci men Type: URINE SPECIMENOrdering Facility: [facility] Address: [address] [place] [address] Performed By: #### 2 4356-8 ####[facility] LABCLIA [id number] [place] [address] [place] Hyaline casts (Urine sed) [#/Area] 0 /[LPF] Normal 0 /LPF [facility] Comment on above: Order Comment: Speci men Type: URINE SPECIMENOrdering Facility: [facility] Address: [address] [place] [address] Performed By: #### 2 4356-8 ####[facility] LABCLIA [id number] [place] [address] [place] Ketones Ql (U) Negative Normal Negative [facility] Comment on above: Order Comment: Speci men Type: URINE SPECIMENOrdering Facility: [facility] Address: [address] [place] [address] Performed By: #### 2 4356-8 ####[facility] LABCLIA [id number] [place] [address] [place] Leukocyte esterase Test strip Ql (U) 3+ Abnormal Negative [facility] Comment on above: Order Comment: Speci men Type: URINE SPECIMENOrdering Facility: [facility] Address: [address] [place] [address] Performed By: #### 2 4356-8 ####[facility] LABCLIA [id number] [address], [facility]95 [place] Nitrite Ql (U) Negative Normal Negative [facility] Comment on above: Order Comment: Speci men Type: URINE SPECIMENOrdering Facility: [facility] Address: [address] [place] [address] Performed By: #### 2 4356-8 ####[facility] LABIA [id number] [address], [place] [address] [place] pH (U) 7.0 [pH] Normal <8.5 [facility] Comment on above: Order Comment: Speci men Type: URINE SPECIMENOrdering Facility: [facility] Address: [address] [place] [address] Performed By: #### 2 4356-8 ####[facility] LABIA [id number] [address], [place] [address] [place] Protein (U) [Mass/Vol] Negative Normal Negative [facility] Comment on above: Order Comment: Speci men Type: URINE SPECIMENOrdering Facility: [facility] Address: [address] [place] [address] Performed By: #### 2 4356-8 ####[facility] LABIA [id number] [address], [place] [address] [place] RBC LM.HPF (Urine sed) [#/Area] 0-2 /HPF Normal 0-2 /HPF [facility] Comment on above: Order Comment: Speci men Type: URINE SPECIMENOrdering Facility: [facility] Address: [address] [place] [address] Performed By: #### 2 4356-8 ####[facility] LABIA [id number] [place] [address] [place] Specific gravity (U) [Rel density] 1.014 Normal 1.005-1.030 [facility] Comment on above: Order Comment: Speci men Type: URINE SPECIMENOrdering Facility: [facility] Address: [address] [place] [address] Performed By: #### 2 4356-8 ####[facility] LABIA [id number] [place] [address] [place] Urobilinogen Ql (U) 0.2 EU/dL Normal 0.2-1.0 EU/dL Cl [facility] Comment on above: Order Comment: Speci men Type: URINE SPECIMENOrdering Facility: [facility] Address: [address] [place] [address] Performed By: #### 2 4356-8 ####[facility] [id number] [place] [address] [place] WBC LM.HPF (Urine sed) [#/Area] 11-20 /HPF Abnormal 0-5 /HPF [facility] Comment on above: Order Comment: Speci men Type: URINE SPECIMENOrdering Facility: [facility] Address: [address] [place] [address] Performed By: #### 2 4356-8 ####[facility] [id number] [place] [address] [place] Vit B12 SerPl-ncon 05-30-2 025 Cobalamin (Vitamin B12) [Mass/Vol] 609 pg/mL Normal 232-1245 [facility] Comment on above: Order Comment: Speci men Type: BLOOD SPECIMENOrdering Facility: [facility] Address: [address] [place] [address] Performed By: #### 2 132-9, 3016-3, LIPNF ####[facility] [id number] [place] [address] [place] CNOVSPon 03-21-2025 CNOVSP Visit (SP) Office (HEMAWS) DOM AVILA ([id number]) 1955 F Date Time Provider Department 03/21/25 8:00 AM CHAD MARIEE During your visit today, we recorded the following information about you: Temperature Pulse Blood pressure Weight 97.6 degrees 63/minute 163/88 65.2 kg Chad Mariee APRN.TOOL MACHINE SETUP OPERATOR 03/22/2025 1:28 PM Signed Chief Complaint Patient presents with: Established Patient HPI: Dom Avila is a 69 year old female who presents here today for follow up DCIS. Per Dr. 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 Past [...] March 2026. - Continue follow up with PCP/GI/Cards/MILITARY AIRCRAFT DESIGNER. - Needs follow up/yearly pelvic with MILITARY AIRCRAFT DESIGNER-Marck Dumont CNP. - Follow up in 6 months. - Pt. aware to call office with any questions/concerns. The patient indicates understanding of these issues and agrees with the plan. All documentation from previous visit of 09/14/24-Dr. Georges/myself was copied and pasted, documentation has been reviewed and edited as necessary for today's visit. Chad Mariee APRN.TOOL MACHINE SETUP OPERATOR Referring Provider: CHAD MARIEE [[id number]] Allergies As of Date: 03/21/2025 Noted Allergy Reaction BRILINTA (TICAGRELOR) 06/28/2017 12 - Shortness of Breath CRESTOR (ROSUVASTATIN) 04/10/2020 17 - Myalgia KEFLEX (CEPHALEXIN) 02/02/2006 14 - Other: See Comments Comments: facial flushing LIPITOR (ATORVASTATIN) 07/21/2013 14 - Other: See Comments Comments: myalgia LOVASTATIN (more content not included)... 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 Cataract Colon polyp 2011 Controlled type 2 diabetes mellitus without complication, without long-term current use of insulin ([facility]) 10/22/2016 De Quervain's tenosynovitis, left 07/31/2019 Diabetic [...] [place] Type 2 diabetes mellitus with hyperlipidemia ([facility]) 04/17/2024 Vitamin D deficiency 2013 Well adult exam 01/16/2016 Last done: 09/08/2018 Surgical History: PAST SURGICAL HISTORY Procedure Laterality Date 2D ECHO (EXEP) 06/30/2017 EF=65%, trivial FL, TI and 1+ PI Unchanged from 04/2017 2D ECHO (EXEP) 05/14/2021 EF=60%, 1+ TI, trival FL, AI, PI 2D ECHO (EXEP) 09/16/2021 EF=60%, [...] HEART CATHETERIZ (more content not included)... Normal [facility] DBT Breast - bilateral scree ningon 03-14-2025 [...] Yennifer Fonseca D.O. Electronically signed on: 03/14/2025 Process Consultant: Bostan ResearchKATE Transcribe Date/Time: Mar 14 2025 7:21A Dictated by: YENNIFER FONSECA DO This examination was interpreted and the report reviewed and electronically signed by: DANIEL MARINELLI MD on Mar 14 2025 1:29PM [facility] DIVISION OF RADIOLOGY * * *Final Report* * * DATE OF EXAM: Mar 14 2025 7:35AM [facility] 0582 - GUILLERMINA SCREENING W ANGELA / PROCEDURE REASON: multiple diagnoses * * * * Physician Interpretation * * * * RESULT: [place] [address] #[id number] - GUILLERMINA SCREENING W ANGELA HISTORY: 69 [...] in either breast. DIVISION OF RADIOLOGY Provider, [facility] - 03/14/2025 * * *Final Report* * * DATE OF EXAM: Mar 14 2025 7:35AM [facility] 0582 - GUILLERMINA SCREENING W ANGELA / PROCEDURE REASON: multiple diagnoses * * * * Physician Interpretation * * * * RESULT: [place] [address] #[id number] - GUILLERMINA SCREENING W ANGELA HISTORY: 69 [...] Yennifer Fonseca D.O. Electronically signed on: 03/14/2025 Process Consultant: ARINA Transcribe Date/Time: May 7 2025 7:21A Dictated by: YENNIFER FONSECA DO This examination was interpreted and the report reviewed and electronically signed by: DANIEL MARINELLI MD on Mar 14 2025 1:29PM EST [facility] Radiology Study observation (narrative) [facility] DBT Breast - bilateral scree ningOrdered By: [facility] Provider on 03-14-2025 [facility] GUILLERMINA SCREENING W TOMOon 03-14 GUILLERMINA SCREENING W ANGELA * * *Final Report* * * DATE OF EXAM: Mar 14 2025 7:35AM [facility] 0582 - GUILLERMINA SCREENING W ANGELA / PROCEDURE REASON: multiple diagnoses * * * * Physician Interpretation * * * * RESULT: [facility] [address] [place] [address] #[id number] - GUILLERMINA SCREENING W ANGELA HISTORY: 69 [...] Yennifer Fonseca D.O. Electronically signed on: 03/14/2025 Process Consultant: ARINA Artisrimary kay Date/Time: Mar 14 2025 7:21A Dictated by: YENNIFER FONSECA, DO This examination was interpreted and the report reviewed and electronically signed by: DANIEL MARINELLI MD on Mar 14 2025 1:29PM EST [id number] Normal [facility] ACTH Plas-mCncon 02-21-2025 Corticotropin (P) [Mass/Vol] 1.9 pg/mL Low 7.2-63.3 [facility] Comment on above: Order Comment: Taran caevedo Type: BLOOD SPECIMENOrdering Facility: [facility] Address: [address] [place] [address] Result Comment: ACTH Reference Range: 7-10 am: 7.2 - 63.3 pg/mL Performed By: #### 2 141-0 ####[facility] LAB[facility] [id number] [place] [address] [place] Cortis p Dex SerPl-[facility] Cortisol post dose dexamethasone [Mass/Vol] 0.7 ug/dL Normal <1.8 [facility] Comment on above: Order Comment: Taran acevedo Type: BLOOD SPECIMENOrdering Facility: [facility] Address: [address] [place] [address] Result Comment: Afte r overnight 1 mg dexamethasone, an clerk specialist cortisol of <1.8 ug/dL may indicate an adequate cortisol suppression. This result should be interpreted within the clinical context and other test results. Dahlia et al. Evidence for the Low Dose Dexamethasone Suppression Test to Screen for Cher's Syndrome - Recommendations for a Protocol for Biochemistry Laboratories. 1997 Diamond. Clin. Biochem. 34 222-229. Performed By: #### 4 7851-1 ####[facility] LABCLIA [id number] [place] [address] [place] DEXAMETHASONEon 02-21-2025 DEXAMETHASONE 327.4 ng/dL Normal [facility] Comment on above: Order Comment: Speci men Type: BLOOD SPECIMENOrdering Facility: [facility] Address: [address] [place] [address] Result Comment: INTE RPRETIVE INFORMATION: Dexamethasone, Serum [...] developed and its performance characteristics determined by [facility]. It has not been cleared or approved by the US Food and Drug Administration. This test was performed in a CLIA certified laboratory and is intended for clinical purposes. Performed By: [facility] [address] [place] [address] Facility Engineer: Jason Shore MD, PhD CLIA Number: [id number] Performed By: #### D EXA ####[employer] Search [facility] [id number] [place] [address] CNOVon 02-19-2025 CNOV Office Visit (URUN) DOM AVILA ([id number]) 1955 F Date Time Provider Department 02/19/25 8:40 AM ORI LORD URTIERNEY During your visit today, we recorded the following information about you: Pulse Blood pressure 65/minute 164/80 Ori Lord DO 02/19/2025 9:18 AM Signed [facility] [place] ESTABLISHED PATIENT NOTE/HISTORY AND PHYSICAL PATIENT: Dom Vel Avila (69 year old) PCP: Clifton Hung MD DATE OF SERVICE: 02/19/2025 SUBJECTIVE: CHIEF COMPLAINT: Follow Up (6 mo f/u. Patient has no new complaints and denies any urinary issues. ) HISTORY OF PRESENT ILLNESS: Recording using Mfuse software for draft documentation of the visit was discussed with the patient/authorized aircraft sales representative; all questions welcomed and answered. Patient/authorized aircraft sales representative agreed to proceed The patient [...] scheduled and a follow-up appointment with her before school on March 16. 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 [facility] 02-16-2025 [facility] Office Visit (ENWSTR ) DOM AVILA ([id number]) 1955 F Date Time Provider Department 02/16/25 [...] disturbance 06/2017 Arthritis tendonitis, arthritis 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 Cataract Colon polyp 2011 Controlled type 2 diabetes mellitus without complication, without long-term current use of insulin ([facility]) 10/22/2016 De Quervain's tenosynovitis, left 07/31/2019 Diabetic eye exam ([facility]) 01/16/2016 Lat done: 12/03/2017 No retinopathy Ductal [...] hyperlipidemia 05/31/2009 statin intolerance Narcolepsy without cataplexy ([facility]) 01/16/2016 Especially with long drives. Has been on provigil for 5-10 yrs Obstructive sleep apnea on CPAP Sibilia Other skin changes 09/26/2021 Seeing derm Pancreatic insufficiency ([facility]) 04/08/[address] Ortiz [place] RLS (restless [...] Date 2D ECHO (EXEP) 06/30/2017 EF=65%, trivial FL, TI and 1+ PI Unchanged from 04/2017 2D ECHO (EXEP) 05/14/2021 EF=60%, 1+ TI, trival FL, AI, PI 2D ECHO (EXEP) 09/16/2021 EF=60%, [...] CATHETERIZATION 10/09 (more content not included)... 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 Cataract Colon polyp 2011 Controlled type 2 diabetes mellitus without complication, without long-term current use of insulin ([facility]) 10/22/2016 De Quervain's tenosynovitis, left 07/31/2019 Diabetic eye exam ([facility]) 01/16/2016 Lat done: 12/03/2017 No retinopathy Ductal [...] Date 2D ECHO (EXEP) 06/30/2017 EF=65%, trivial FL, TI and 1+ PI Unchanged from 04/2017 2D ECHO (EXEP) 05/14/2021 EF=60%, 1+ TI, trival FL, AI, PI 2D ECHO (EXEP) 09/16/2021 EF=60%, [...] cancer) Mother Coronary Artery Disease Father 25 FL @ 25. CABG Diabetes Father Di (more content not included)... Normal [facility] ACTH Plas-mCncon 11-07-2024 Corticotropin (P) [Mass/Vol] 28.4 pg/mL Normal 7.2-63.3 [facility] Comment on above: Order Comment: Speci men Type: BLOOD SPECIMENOrdering Facility: [facility] Address: [address] [place] [address] Result Comment: ACTH Reference Range: 7-10 am: 7.2 - 63.3 pg/mL Performed By: #### 2 141-0 ####[facility] LABCLIA [id number] [place] [address] [place] CREATININE, 24 HOUR URINEon 11-07-2024 Creatinine (24H U) [Mass/Time] 0.786 g/24 hr Low 0.800-1.800 [facility] Comment on above: Order Comment: Speci men Type: URINE SPECIMENOrdering Facility: [facility] Address: [address] [place] [address] Performed By: #### U CRD ####[facility] LABCL[facility] [id number] [place] [address] [place] [facility] [id number] [place] [address] [place] PERIOD (HRS) 24 hr Normal [facility] Comment on above: Order Comment: Speci men Type: URINE SPECIMENOrdering Facility: [facility] Address: [address] [place] [address] Performed By: #### U CRD ####[facility] LABCLIA [id number] [place] [address] [place] [facility] [id number] [place] [address] [place] Specimen volume (24H U) 1.95 L Normal [facility] Comment on above: Order Comment: Speci men Type: URINE SPECIMENOrdering Facility: [facility] Address: [address] [place] [address] Performed By: #### U CRD ####[facility] LABCLIA [id number] LYDIAAldair MOUNDSDESK [address] OF [facility] [id number] [place] [id number] [place] [address] OF [facility] URINE FREE CORTISOL BY LC-MS /MSon 11-07-2024 CORTISOL UG/G SERVICE ADVOCATE CONTACT, UR (UFRCRT) 16.32 ug/g SERVICE ADVOCATE CONTACT Normal [facility] Comment on above: Order Comment: Speci men Type: URINE SPECIMENOrdering Facility: [facility] Address: [address] [place] [address] Result Comment: Refe rence Interval: Cortisol ug/g signal repairer Female Prepubertal: Less than 25 ug/g signal repairer 18 years and older: Less than 24 ug/g signal repairer : Less than 59 ug/g signal repairer Male Prepubertal: Less than 25 ug/g signal repairer 18 years and older: Less than 32 ug/g signal repairer Performed By: #### U FRCRT ####[facility]IES[facility]IA [id number] [place] [address] CREATININE, URINE PER 24H 800 mg/d Normal 500-1400 [facility] Comment on above: Order Comment: Speci men Type: URINE SPECIMENOrdering Facility: [facility] Address: [address] [place] [address] Performed By: #### U FRCRT ####[facility]IESCLIA [id number] [place] [address] CREATININE, URINE PER VOLUME 41 mg/dL Normal [facility] Comment on above: Order Comment: Speci men Type: URINE SPECIMENOrdering Facility: [facility] Address: [address] [place] [address] Performed By: #### U FRCRT ####[facility]IESCLIA [id number] [place] [address] FREE CORTISOL UG/DAY, URINE 13.0 ug/d Normal <=45.0 [facility] Comment on above: Order Comment: Speci men Type: URINE SPECIMENOrdering Facility: [facility] Address: [address] [place] [address] Performed By: #### U FRCRT ####[facility]IESCLIA [id number] [place] [address] FREE CORTISOL UG/L, URINE 6.69 ug/L Normal [facility] Comment on above: Order Comment: Speci men Type: URINE SPECIMENOrdering Facility: [facility] Address: [address] [place] [address] Performed By: #### U FRCRT ####[facility]IESCLIA [id number] [place] [address] HOURS COLLECTED 24 hr Normal [facility] Comment on above: Order Comment: Speci men Type: URINE SPECIMENOrdering Facility: [facility] Address: [address] [place] [address] Result Comment: Per 24h calculations are provided to aid interpretation for collections with a duration of 24 hours and an average daily urine volume. For specimens with notable deviations in collection time or volume, ratios of analytes to a corresponding urine creatinine concentration may assist in result interpretation. Performed By: #### U FRCRT ####[facility]IESCLIA [id number] [place] [address] TOTAL VOLUME 1950 mL Normal [facility] Comment on above: Order Comment: Speci men Type: URINE SPECIMENOrdering Facility: [facility] Address: [address] [place] [address] Performed By: #### U FRCRT ####[facility]IESCLIA [id number] [place] [address] UR DYAN FREE INTERP See Note Normal [facility] Comment on above: Order Comment: Speci men Type: URINE SPECIMENOrdering Facility: [facility] Address: [address] [place] [address] Result Comment: INTE RPRETIVE INFORMATION: Cortisol Urine Free by LC-MS/MS Access complete set of age- and/or gender-specific reference intervals for this test in the [facility] Test Directory ([employer]). This test was developed and its performance characteristics determined by [employer]. It has not been cleared or approved by the US Food and Drug Administration. This test was performed in a CLIA certified laboratory and is intended for clinical purposes. Performed By: [facility] [address] [place] [address] Facility Engineer: Jason Shore MD, PhD CLIA Number: [id number] Performed By: #### U CRT ####[facility]neMER[facility] ALLEN HOSPITALIA [id number] [place] [address] CNOVon 11-03-2024 CNOV Office Visit (ENWSTR ) DOM AVILA ([id number]) 1955 F Date Time Provider Department 11/03/24 [...] disturbance 06/2017 Arthritis tendonitis, arthritis 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 (HCC) [...] Date 2D ECHO (EXEP) 06/30/2017 EF=65%, trivial FL, TI and 1+ PI Unchanged from 04/2017 2D ECHO (EXEP) 05/14/2021 EF=60%, 1+ TI, trival FL, AI, PI 2D ECHO (EXEP) 09/16/2021 EF=60%, [...] 2004 parathyroidectomy (more content not included)... Normal [facility] Cardiology Visit Reporton Cardiology Visit Report [facility] [address] [place] [address] OFFICE VISIT Date of Service: 10/23/24 MR#: [id number] Acct: [id number] Name: DOM AVILA Rep #: [id number] : 1955 Provider: NEGRO valladares Age/Sex: 69/F [facility] Status: Signed HPI HPI History of Present [...] air Intake Visit Reasons: 6 M FU Rn Homecare Required: No Accompanied by: Self Is patient [...] mg PO DAILY 11/30/22 10/23/24 History release eqalln-dpdtasua-lmydps e See Rx Instructions PO .COMPLEX 03/04/23 [...] syndrome) Hi (more content not included)... [facility] Office Visit (FAMPWS ) AUSTINDOM K ([id number]) 1955 F Date Time Provider Department 10/18/24 9:20 AM CLIFTON HUNG FAMPWS During your visit today, we recorded the following information about you: Temperature Pulse Respiration Blood pressure 97.6 degrees 62/minute 16/minute 132/82 Weight 63.5 kg Clifton Hung MD 10/18/2024 10:31 AM Signed Chief Complaint Patient presents with: F/U 6 months HPI Dom Crowder uAstin is a 69 year old female who [...] last visit 09/2024 Patient sees Cardiology [facility] last visit 04/2024 Past medical history, appointments, medications, allergies reviewed. Previous Medical History PAST MEDICAL HISTORY Diagnosis Date Advance directive discussed with patient 04/08/2023 Discussed 03/2023: Up to date Amaurosis fugax 10/29/2017 TIA; right visual disturbance 06/2017 Arthritis tendonitis, arthritis 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 (HCC) [...] Date 2D ECHO (EXEP) 06/30/2017 EF=65%, trivial FL, TI and 1+ PI Unchanged from 04/2017 2D ECHO (EXEP) 05/14/2021 EF=60%, 1+ TI, trival FL, AI, PI 2D ECHO (EXEP) 09/16/2021 EF=60%, [...] anterior dominick (more content not included)... Normal [facility] 25([place])D3 [facility] 25-hydroxyvitamin D3 [Mass/Vol] 34.7 ng/mL Normal 31.0-80.0 [facility] Comment on above: Order Comment: Speci men Type: BLOOD SPECIMENOrdering Facility: [facility] Address: [address] [place] [address] Result Comment: Clas sification of 25 [place] Vitamin D status: Deficiency/Insufficiency: < or = 30 ng/ml. Sufficiency/Optimal Levels: 31-80 ng/mL Toxicity: > 100 ng/mL. Test performed by chemiluminescent immunoassay. Performed By: #### 1 989-3 ####[facility] LABCLIA [id number] [place] [address] [place] Basic metabolic 2000 panelon 10-14-2024 Anion gap [Moles/Vol] 10 mmol/L Normal 8-15 [facility] Comment on above: Order Comment: Speci men Type: BLOOD SPECIMENOrdering Facility: [facility] Address: [address] [place] [address] Performed By: #### 2 4321-2, LIPNF ####[facility] LABIA [id number] [place] [address] [place] Calcium [Mass/Vol] 9.2 mg/dL Normal 8.5-10.2 [facility] Comment on above: Order Comment: Speci men Type: BLOOD SPECIMENOrdering Facility: [facility] Address: [address] [place] [address] Performed By: #### 2 4321-2, LIPNF ####[facility] LABCLIA [id number] [place] [address] [place] Chloride [Moles/Vol] 104 mmol/L Normal 98-107 [facility] Comment on above: Order Comment: Speci men Type: BLOOD SPECIMENOrdering Facility: [facility] Address: [address] [place] [address] Performed By: #### 2 4321-2, LIPNF ####[facility] LABCLIA [id number] [place] [id number] [place] CO2 [Moles/Vol] 28 mmol/L Normal 22-30 [facility] Comment on above: Order Comment: Speci men Type: BLOOD SPECIMENOrdering Facility: [facility] Address: [address] [place] [address] Performed By: #### 2 4321-2, LIPNF ####[facility] LABCLIA [id number] [place] [address] [place] [place] Creatinine [Mass/Vol] 0.79 mg/dL Normal 0.58-0.96 [facility] Comment on above: Order Comment: Speci men Type: BLOOD SPECIMENOrdering Facility: [facility] Address: [address] [place] [address] Performed By: #### 2 4321-2, LIPNF ####[facility] LABCLIA [id number] [place] [address] [place] [facility] Creatinine and Glomerular filtration rate.predicted panel (S/P/Bld) 82 mL/min/1.73m??? Normal >=60 [facility] Comment on above: Order Comment: Speci men Type: BLOOD SPECIMENOrdering Facility: [facility] Address: [address] [place] [address] Result Comment: Richa mated Glomerular Filtration Rate [...] GFR. Performed By: #### 2 4321-2, LIPNF ####[facility] LABCLIA [id number] [place] [address] [place] Glucose [Mass/Vol] 103 mg/dL High 74-99 [facility] Comment on above: Order Comment: Speci men Type: BLOOD SPECIMENOrdering Facility: [facility] Address: [address] [place] [address] Result Comment: The [place] Diabetes Association (ADA) provides guidance for cutoff [...] Standards of Medical Care in Diabetes 2016, [place] Diabetes Association. Diabetes Care. 2016.39(Suppl 1). Performed By: #### 2 4321-2, LIPNF ####[facility] LABCLIA [id number] [place] [address] [place] Potassium [Moles/Vol] 4.2 mmol/L Normal 3.7-5.1 [facility] Comment on above: Order Comment: Speci men Type: BLOOD SPECIMENOrdering Facility: [facility] Address: [address] [place] [address] Performed By: #### 2 4321-2, LIPNF ####[facility] LABCLIA [id number] [place] [address] [place] Sodium [Moles/Vol] 142 mmol/L Normal 136-144 [facility] Comment on above: Order Comment: Speci men Type: BLOOD SPECIMENOrdering Facility: [facility] Address: [address] [place] [address] Performed By: #### 2 4321-2, LIPNF ####[facility] LABCLIA [id number] [place] [address] [place] Urea nitrogen [Mass/Vol] 18 mg/dL Normal 7-21 [facility] Comment on above: Order Comment: Speci men Type: BLOOD SPECIMENOrdering Facility: [facility] Address: [address] [place] [address] Performed By: #### 2 4321-2, LIPNF ####[facility] LABCLIA [id number] [facility] HbA1c (Bld)on 10-14-2024 Average glucose Estimated from glycated hemoglobin (Bld) [Mass/Vol] 131 mg/dL Normal [facility] Comment on above: Order Comment: Taran acevedo Type: BLOOD SPECIMENOrdering Facility: [facility] Address: [address] [place] [address] Result Comment: eAG: (Estimated average glucose) is a calculated value from HgbA1c and is aircraft sales representative of the average blood glucose level in the last 2-3 month period. Performed By: #### 5 5454-3 ####[facility] LABIA [id number] HbA1c (Bld) [Mass fraction] 6.2 % High 4.3-5.6 [facility] Comment on above: Order Comment: Taran acevedo Type: BLOOD SPECIMENOrdering Facility: [facility] Address: [address] [place] [address] Result Comment: Amer ican Diabetes Association guidelines indicate that patients with HgbA1c in the range 5.7-6.4% are at increased risk for development of diabetes, and intervention by lifestyle modification may be beneficial. HgbA1c greater or equal to 6.5% is considered diagnostic of diabetes. Performed By: #### 5 5454-3 ####[facility] LABIA [id number] [address] [place] LIPID PANEL, NONFASTINGon Cholesterol [Mass/Vol] 202 mg/dL High <200 [facility] Comment on above: Order Comment: Taran acevedo Type: BLOOD SPECIMENOrdering Facility: [facility] Address: [address] [place] [address] Result Comment: <200 mg/dL, Desirable 200-239 mg/dL, Borderline high >239 mg/dL, High Performed By: #### 2 4321-2, LIPNF ####[facility] LABCLIA [id number] [place] [address] [place] HDL CHOLESTEROL, NF 45 mg/dL Normal >39 [facility] Comment on above: Order Comment: Taran acevedo Type: BLOOD SPECIMENOrdering Facility: [facility] Address: [address] [place] [address] Result Comment: 40-5 9 mg/dL, Acceptable >59 mg/dL, High: Negative risk factor for coronary heart disease <40 mg/dL, Low: Positive risk factor for coronary heart disease Performed By: #### 2 4321-2, LIPNF ####[facility] LABCLIA [id number] [place] [address] [place] LDL CHOLESTEROL, NF 138 mg/dL High <100 [facility] Comment on above: Order Comment: Taran acevedo Type: BLOOD SPECIMENOrdering Facility: [facility] Address: [address] [place] [address] Result Comment: <100 mg/dL, Optimal 100-129 mg/dL, Near optimal/above optimal 130-159 mg/dL, Borderline high 160-189 mg/dL, High >189 mg/dL, Very high Secondary prevention optimal LDL Cholesterol levels are recommended to be < 70 mg/dL Performed By: #### 2 4321-2, LIPNF ####[facility] LABCLIA [id number] [place] [address] [place] LDL/HDL RATIO, NF 3.07 mg/dL High <2.54 [facility] Comment on above: Order Comment: Taran acevedo Type: BLOOD SPECIMENOrdering Facility: [facility] Address: [address] [place] [address] Result Comment: Michaelle mayes: 1. National Cholesterol Education Program ATP III Guideline At-A-Glance Quick Desk Reference: National Heart, Lung, and Blood [place]. National Institutes of Health. 2001: NIH Publication No. 01-3305. 2. An International Atherosclerosis Society position paper: global recommendations for the management of dyslipidemia: executive summary, Atherosclerosis. 2014: 232(2):410-413. Performed By: #### 2 4321-2, LIPNF ####[facility] LABCLIA [id number] [place] [address] [place] NON HDL CHOL, NF 157 mg/dL High <130 [facility] Comment on above: Order Comment: Speci men Type: BLOOD SPECIMENOrdering Facility: [facility] Address: [address] [place] [address] Result Comment: <130 mg/dL, Optimal 130-159 mg/dL, Near optimal/above optimal 160-189 mg/dL, Borderline high 190-219 mg/dL, High >219 mg/dL, Very high Secondary prevention optimal non HDL Cholesterol levels are recommended to be <100 mg/dL Performed By: #### 2 4321-2, LIPNF ####[facility] LABCLIA [id number] [place] [address] [place] T CHOL/HDL RATIO NF 4.49 mg/dL Normal <5.10 [facility] Comment on above: Order Comment: Speci men Type: BLOOD SPECIMENOrdering Facility: [facility] Address: [address] [place] [address] Performed By: #### 2 4321-2, LIPNF ####[facility] LABCLIA [id number] [place] [address] [place] TRIGLYCERIDES, NF 94 mg/dL Normal <150 [facility] Comment on above: Order Comment: Speci men Type: BLOOD SPECIMENOrdering Facility: [facility] Address: [address] [place] [address] Result Comment: <150 mg/dL, Normal 150-199 mg/dL, Borderline high 200-499 mg/dL, High >499 mg/dL, Very high Performed By: #### 2 4321-2, LIPNF ####[facility] LABCLIA [id number] [place] [address] [place] VLDL CHOLESTEROL, NF 19 mg/dL Normal <30 [facility] Comment on above: Order Comment: Speci men Type: BLOOD SPECIMENOrdering Facility: [facility] Address: [address] [place] [address] Performed By: #### 2 4321-2, LIPNF ####[facility] LABCLIA [id number] [address] DRISCOLL [id number] [id number] [place] CNPNon 10-13-2024 CNPN Telephone (FAMPWS) DOM AVILA ([id number]) 1955 F Date Time Provider [facility] visit today, we recorded [...] Order(s):VITAMIN D 25 HYDROXY [SQVITD] Order #: [id number] FUTURE HEMOGLOBIN A1C [WTSTK9N] Order #: [id number] FUTURE LIPID PANEL, NONFASTING [SQLIPNF] Order #: [id number] FUTURE BASIC METABOLIC PANEL [SQBMP] Order #: [id number] FUTURE Prescriptions as of 10/13/2024 - dexAMETHasone [...] MG DAILY August 23, 2019 3:27pm - xzebei-yqwbulaa-cpcscc e (CREON 36) 36,000-114,000- 180,000 unit delayed [...] 2 diabetes mellitus without com*10/22/2016 Atherosclerosis of [place] coronary artery with *01/09/2017 S/P angioplasty with stent [Z95.820] 01/09/2017 Meniere disease, right [H81.01] 10/29/2017 History of transient ischemic attack (TIA) [Z86*10/29/2017 Garibay's cyst of knee, left [M71.22] 03/02/2018 Psoriasis [L40.9] Ductal carcinoma in situ (DCIS) of left breast *05/26/2021 Irritable bowel syndrome with diarrhea [K58.0] 05/26/2021 Foot callus [L84] 05/26/2021 Other skin ramona (more content not included)... Normal [facility] Cortis p Dex SerPl-ncon Cortisol post dose dexamethasone [Mass/Vol] 2.0 ug/dL High <1.8 [facility] Comment on above: Order Comment: Taran acevedo Type: BLOOD SPECIMENOrdering Facility: [facility] Address: [address] [place] [address] Result Comment: Afte r overnight 1 mg dexamethasone, an clerk specialist cortisol of <1.8 ug/dL may indicate an adequate cortisol suppression. This result should be interpreted within the clinical context and other test results. Dahlia et al. Evidence for the Low Dose Dexamethasone Suppression Test to Screen for Mcgrann's Syndrome - Recommendations for a Protocol for Biochemistry Laboratories. 1997 Diamond. Clin. Biochem. 34 222-229. Performed By: #### 4 7851-1 ####[facility] LABIA [id number] [place] [address] [place] ACTH [facility] 10-02-2024 Corticotropin (P) [Mass/Vol] 25.6 pg/mL Normal 7.2-63.3 [facility] Comment on above: Order Comment: Taran acevedo Type: BLOOD SPECIMENOrdering Facility: [facility] Address: [address] [place] [address] Result Comment: ACTH Reference Range: 7-10 am: 7.2 - 63.3 pg/mL Performed By: #### 2 141-0 ####[facility] LABIA [id number] [place] [address] [place] ALDOSTERONE/DIRECT RENIN RAT IOon 10-02-2024 JONATHAN RENIN RATIO 1.2 Normal <3.8 [facility] Comment on above: Order Comment: Taran acevedo Type: BLOOD SPECIMENOrdering Facility: [facility] Address: [address] [place] [address] Result Comment: A ra ben of aldosterone in ng/dL to direct renin in pg/mL greater than or equal to 3.8 is a positive screening test result for primary aldosteronism, when aldosterone is greater than or equal to 15 ng/dL. Performed By: #### A LDREN ####[facility] LABCLIA [id number] [place] [address] [place] Aldosterone [Mass/Vol] 6.1 ng/dL Normal 0.0-<35.4 [facility] Comment on above: Order Comment: Taran acevedo Type: BLOOD SPECIMENOrdering Facility: [facility] Address: [address] [place] [address] Result Comment: The reference interval for serum/plasma [...] 15 ng/dL. Performed By: #### A LDREN ####[facility] LABCLIA [id number] [address] STATES OF [facility] DIRECT RENIN 5.2 pg/mL Normal 3.6-81.6 [facility] Comment on above: Order Comment: Taran acevedo Type: BLOOD SPECIMENOrdering Facility: [facility] Address: [address] [place] [address] Result Comment: The reference interval for direct [...] 15 ng/dL. Performed By: #### A LDREN ####[facility] LABCLIA [id number] [place] [address] [place] PATIENT UPRIGHT OR SUPINE Upright Normal [facility] Comment on above: Order Comment: Taran acevedo Type: BLOOD SPECIMENOrdering Facility: [facility] Address: [address] [place] [address] Performed By: #### A ADITI ####[facility] LABCLIA [id number] [facility] [id number] [address] [place] DEXAMETHASONEon 10-02-2024 DEXAMETHASONE <50.0 Normal [facility] Comment on above: Order Comment: Speci men Type: BLOOD SPECIMENOrdering Facility: [facility] Address: [address] [place] [address] Result Comment: INTE RPRETIVE INFORMATION: Dexamethasone, Serum [...] developed and its performance characteristics determined by [facility]. It has not been cleared or approved by the US Food and Drug Administration. This test was performed in a CLIA certified laboratory and is intended for clinical purposes. Performed By: [facility] [address] [place] [address] Facility Engineer: Jason Shore MD, PhD [place] Number: [id number] Performed By: #### Aldair CORREA ####[facility] [id number] [place] [address] DHEA-S BLDon 10-02-2024 DHEA-S [Mass/Vol] 44.2 ug/dL Normal <=246.9 [facility] Comment on above: Order Comment: Speci men Type: BLOOD SPECIMENOrdering Facility: [facility] Address: [address] [place] [address] Result Comment: Refe rence ranges are age and gender specific. For additional information, reference range tables can be found in the laboratory test directory. The normal values are based on the following source: Dehydroepiandrosterone sulfate (DHEA S) [package insert V 17.0 Bulgarian]. [facility], [place], [place]: June 2013. Performed By: #### Aldair AVITIA ####[facility] LABCLIA [id number] ENEDINA DRISCOLL [id number] V[place] [id number] [place] POTASSIUMon 10-02-2024 Potassium [Moles/Vol] 3.8 mmol/L Normal 3.7-5.1 [facility] Comment on above: Order Comment: Speci men Type: BLOOD SPECIMENOrdering Facility: [facility] Address: [address] [place] [address] Performed By: #### K 1 ####[facility]ENT MILLDEETHNCLIA [id number] [place] [id number] [place] CNOVon 09-22-2024 CNOV Office Visit (ENWSTR ) DOM AVILA ([id number]) 1955 F Date Time Provider Department 09/22/24 [...] disturbance 06/2017 Arthritis tendonitis, arthritis 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 Normal [facility] CNOVSPon 09-14-2024 CNOVSP Visit (SP) Office (DEX) DOM AVILA ([id number]) 1955 F Date Time Provider Department 09/14/24 [...] DCIS. Per Dr. 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 2024 The ROS [...] Continue tamoxifen. - Continue follow up with PCP/GI/Cards/MILITARY AIRCRAFT DESIGNER. - Mammogram due March 2025. - Follow up after above. - Pt. aware to call office with any questions/concerns. The sensitive examination was discussed with the Patient or Patient's Authorized Airline Reservationist. As applicable, any other physician, advance practice provider, medical student, or other health professional student that will be observing or involved in the sensitive examination for educational or training purposes was discussed with the Patient or Authorized Airline Reservationist. The Patient or Authorized Airline Reservationist has agreed to proceed with the sensitive examination. (Sensitive examination includes inspection and/or palpation of the breasts, pelvis, prostate and anorectal regions) The patient indicates understanding of these issues and agrees with the plan. All documentation from previous visit of 03/14/24-Dr. Georges/ (more content not included)... Normal [facility] CT ADRENAL WO/W IVCONon 10-0 CT ADRENAL WO/W IVCON * * *Final Report* * * DATE OF EXAM: Aug 15 2024 9:44AM [facility] 0536 - CT ADRENAL WO/W IVCON [...] Lower thorax and bones: No significant findings. Shirt Turner (topogram) images: No additional findings. IMPRESSION: 1. Stable 1.0 cm left adrenal adenoma. 2. Minimal mesenteric fat stranding in the left flank, nonspecific. Process Consultant: [facility] Transcribe Date/Time: Aug 15 2024 9:33A Dictated by : MICHELE CAO MD This examination was interpreted and the report reviewed and electronically signed by: MICHELE CAO MD on Aug 15 2024 10:27AM EST [id number] Normal [facility] CT Adrenal gland WO and W co ntrast Rikki 08-15-2024 IMPRESSION: 1. Stable 1.0 cm left adrenal adenoma. 2. Minimal mesenteric fat stranding in the left flank, nonspecific. Process Consultant: [facility] Transcribe Date/Time: Aug 15 2024 9:33A Dictated by : MICHLEE CAO MD This examination was interpreted and the report reviewed and electronically signed by: MICHELE CAO MD on Aug 15 2024 10:27AM EST DIVISION OF RADIOLOGY * * *Final Report* * * DATE OF EXAM: Aug 15 2024 9:44AM [facility] 0536 - CT ADRENAL WO/W IVCON [...] Lower thorax and bones: No significant findings. Shirt Turner (topogram) images: No additional findings. DIVISION OF RADIOLOGY Provider, [facility] - 08/15/2024 * * *Final Report* * * DATE OF EXAM: Aug 15 2024 9:44AM [facility] 0536 - CT ADRENAL WO/W IVCON [...] Lower thorax and bones: No significant findings. Shirt Turner (topogram) images: No additional findings. IMPRESSION IMPRESSION: 1. Stable 1.0 cm left adrenal adenoma. 2. Minimal mesenteric fat stranding in the left flank, nonspecific. Process Consultant: [facility] Transcribe Date/Time: Aug 15 2024 9:33A Dictated by : MICHELE CAO MD This examination was interpreted and the report reviewed and electronically signed by: MICHELE CAO MD on Aug 15 2024 10:27AM EST [facility] Radiology Study observation (narrative) [facility] CT Adrenal gland WO and W co ntrast IVOrdered By: Ccf Provider on 08-15-2024 [facility] CREATININE BLDon 08-08-2024 Creatinine [Mass/Vol] 0.96 mg/dL Normal 0.58-0.96 [facility] Comment on above: Order Comment: Speci men Type: BLOOD SPECIMENOrdering Facility: [facility] Address: [address] [place] [address] Performed By: #### C RET1 ####[facility] [id number] [address] [place] Creatinine and Glomerular filtration rate.predicted panel (S/P/Bld) 65 mL/min/1.73m??? Normal >=60 [facility] Comment on above: Order Comment: Speci men Type: BLOOD SPECIMENOrdering Facility: [facility] Address: [address] [place] [address] Result Comment: Richa mated Glomerular Filtration Rate [...] actual GFR. 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 Normal [facility] UA DIP, URINE (POC)on 2023 BILIRUBIN UA (POCT) Negative Negative [facility] CLARITY UA (POCT) Clear [facility] COLOR UA (POCT) Yellow [facility] GLUCOSE UA (POCT) Negative Negative mg/dL [facility] Hemoglobin Ql (U) Negative [facility] Interpretation and review of laboratory results Abnormal [facility] KETONE UA (POCT) Negative Negative mg/dL [facility] LEUKOCYTES UA (POCT) Small Abnormal Negative [facility] NITRITE UA (POCT) Negative [facility] PH UA (POCT) 6.0 4.5 - 8.0 [facility] Protein Ql (U) Negative Negative mg/dL [facility] SPECIFIC GRAVITY UA (POCT) 1.020 1.005 - 1.030 [facility] UROBILINOGEN UA (POCT) 0.2 Normal E.U./d L [facility] Location:[facility] Urolog y, [address] [place] [address] Dr. 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 Gomez 03/02/2018: Garibay's cyst of knee, left 03/2021: Breast neoplasm, Tis (DCIS), left No date: CAD (coronary artery disease) No date: Cataract 2012: Colon polyp 10/22/2016: Controlled type 2 diabetes mellitus without complication, without long-term current use of insulin (HCC) 07/31/2019: De Quervain's tenosynovitis, left 01/16/2016: Diabetic eye exam ([facility]) Comment: Lat done: 12/03/2017 No retinopathy 05/26/2021: [...] 06/30/2017: 2D ECHO (EXEP) Comment: EF=65%, trivial FL, TI and 1+ PI Unchanged from 04/201705/14/2021: 2D ECHO (EXEP) Comment: EF=60%, 1+ TI, trival FL, AI, PI 09/16/2021: 2D ECHO (EXEP) Comment: [...] DISK SURG (more content not included)... Normal [facility] CNOVon 07-04-2024 CNOV Office Visit (URUN) DOM AVILA ([id number]) 1955 F Date Time Provider Department 07/04/24 11:00 AM ORI LORD During your visit today, we recorded the following information about you: Pulse Blood pressure 70/minute 121/76 Ori Lord DO 07/04/2024 11:16 AM Signed [facility] [place] ESTABLISHED PATIENT NOTE/HISTORY AND PHYSICAL PATIENT: Dom Avila (68 year old) PCP: Clifton Hung MD DATE OF SERVICE: 07/04/2024 SUBJECTIVE: CHIEF COMPLAINT: Patient is here for 6 week f/u. Patient has no new concerns. Patient is scheduled to see an Shock Absorption Floor Layer on 07/11/24. 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 Normal [facility] UA DIP, URINE (POC)on 2023 BILIRUBIN UA (POCT) Negative Negative [facility] CLARITY UA (POCT) Clear [facility] COLOR UA (POCT) Yellow [facility] GLUCOSE UA (POCT) Negative Negative mg/dL [facility] Hemoglobin Ql (U) Negative Negative [facility] Interpretation and review of laboratory results Abnormal [facility] KETONE UA (POCT) Negative Negative mg/dL [facility] LEUKOCYTES UA (POCT) Small Abnormal Negative [facility] NITRITE UA (POCT) Negative Negative [facility] PH UA (POCT) 5.5 4.5 - 8.0 [facility] Protein Ql (U) Negative Negative mg/dL [facility] SPECIFIC GRAVITY UA (POCT) 1.015 1.005 - 1.030 [facility] UROBILINOGEN UA (POCT) 0.2 Normal E.U./d L [facility] Location:[facility] Urolog y, [address] [place] [address] [address]. Anne [address], [place], [place], [address] [place] [address] POINT OF CARE [facility] CA 19-9 Serial Monitoron CA 19-9 GRAPH Normal [facility] Comment on above: Order Comment: Test( s) 380986-Xtvybrsdpku; 655296-Fdxkf Activity, Plasmawas developed and its performance characteristicsdetermined by [facility]. It has not been cleared or approvedby the Food and Drug Administration.NN Result Comment: SEE SCANNED REPORT Performed By: #### L 3300.1000, L501.6710, L3100.3425, L2100.0000, L3100.5017, L101.9900, L3300.1050, L3200.1100, L100.0100, L501.2450, L501.2400, L500.4050, L3200.0500, L509.6000 ####[facility] [address] [place], [place], [id number] MANUEL + Protein Elect, Serumon 06-28-2024 IMMUNOGLOB G QN TNP Normal [facility] Comment on above: Order Comment: Test( s) 144223-Wsqlevztxjw; 346703-Acoxi Activity, Plasmawas developed and its performance characteristicsdetermined by [facility]. It has not been cleared or approvedby the Food and Drug Administration.NN Performed By: #### L 3300.1000, L501.6710, L3100.3425, L2100.0000, L3100.5017, L101.9900, L3300.1050, L3200.1100, L100.0100, L501.2450, L501.2400, L500.4050, L3200.0500, L509.6000 ####[facility] [address] [place], [place], [phone] Adrenocorticotropic Hormoneo n 06-27-2024 ACTH TNP Normal . [facility] Comment on above: Order Comment: Test( s) 790274-Tvlrhkilpwf; 081484-Flets Activity, Plasmawas developed and its performance characteristicsdetermined [...] L3200.1100, L100.0100, L501.2450, L501.2400, L500.4050, L3200.0500, L509.6000 ####[facility] [address] [facility] [place], [address] IgG Subclasseson 06-27-2024 IgG, SUBCLASS 1 726 mg/dL Normal 248-810 [facility] Comment on above: Order Comment: Test( s) 850408-Clfzjhpujzu; 175692-Yhsku Activity, Plasmawas developed and its performance characteristicsdetermined by [facility]. It has not been cleared or approvedby the Food and Drug Administration.NN Performed By: #### L 3300.1000, L501.6710, L3100.3425, L2100.0000, L3100.5017, L101.9900, L3300.1050, L3200.1100, L100.0100, L501.2450, L501.2400, L500.4050, L3200.0500, L509.6000 ####[facility] [address] [place], [address] IgG, SUBCLASS 2 165 mg/dL Normal 130-555 [facility] Comment on above: Order Comment: Test( s) 089651-Hfhtobgsgbw; 569779-Eeduj Activity, Plasmawas developed and its performance characteristicsdetermined by [facility]. It has not been cleared or approvedby the Food and Drug Administration.NN Performed By: #### L 3300.1000, L501.6710, L3100.3425, L2100.0000, L3100.5017, L101.9900, L3300.1050, L3200.1100, L100.0100, L501.2450, L501.2400, L500.4050, L3200.0500, L509.6000 ####[facility] [address] [place], [address] IgG, SUBCLASS 3 90 mg/dL Normal 15-102 [facility] Comment on above: Order Comment: Test( s) 149607-Azxnzxdhtpa; 108106-Lvjhu Activity, Plasmawas developed and its performance characteristicsdetermined by [facility]. It has not been cleared or approvedby the Food and Drug Administration.NN Performed By: #### L 3300.1000, L501.6710, L3100.3425, L2100.0000, L3100.5017, L101.9900, L3300.1050, L3200.1100, L100.0100, L501.2450, L501.2400, L500.4050, L3200.0500, L509.6000 ####[facility] [address] [place], [address] IgG, SUBCLASS 4 7 mg/dL Normal 2-96 [facility] Comment on above: Order Comment: Test( s) 398266-Teukscdaise; 742954-Ndpdd Activity, Plasmawas developed and its performance characteristicsdetermined by [facility]. It has not been cleared or approvedby the Food and Drug Administration.NN Performed By: #### L 3300.1000, L501.6710, L3100.3425, L2100.0000, L3100.5017, L101.9900, L3300.1050, L3200.1100, L100.0100, L501.2450, L501.2400, L500.4050, L3200.0500, L509.6000 ####[facility] [address] [place], [address] IGG,QUANT 1152 mg/dL Normal 586-1602 [facility] Comment on above: Order Comment: Test( s) 914985-Lqzixaxyygi; 943872-Qaprs Activity, Plasmawas developed and its performance characteristicsdetermined by [facility]. It has not been cleared or approvedby the Food and Drug Administration.NN Performed By: #### L 3300.1000, L501.6710, L3100.3425, L2100.0000, L3100.5017, L101.9900, L3300.1050, L3200.1100, L100.0100, L501.2450, L501.2400, L500.4050, L3200.0500, L509.6000 ####[facility] [address] [place], [address] Immunoglobulins G/A/M/Giuseppe IMMUNOGLOB E QN 3 IU/mL Low 6-495 [facility] Comment on above: Order Comment: Test( s) 579915-Viorzdbqmxz; 348242-Qgmxt Activity, Plasmawas developed and its performance characteristicsdetermined by [facility]. It has not been cleared or approvedby the Food and Drug Administration.NN Performed By: #### L 3300.1000, L501.6710, L3100.3425, L2100.0000, L3100.5017, L101.9900, L3300.1050, L3200.1100, L100.0100, L501.2450, L501.2400, L500.4050, L3200.0500, L509.6000 ####[facility] [address] [place], [address] L2100.0000on 06-27-2024 ACCA 18 units Normal 0-90 [facility] Comment on above: Order Comment: Test( s) 080519-Utffusmqrvq; 482287-Fpddp Activity, Plasmawas developed and its performance characteristicsdetermined by [employer]. It has not been cleared or approvedby the Food and Drug Administration.NN Result Comment: Nega tive: <80 Equivocal: 80-90 Positive: >90 Performed By: #### L 3300.1000, L501.6710, L3100.3425, L2100.0000, L3100.5017, L101.9900, L3300.1050, L3200.1100, L100.0100, L501.2450, L501.2400, L500.4050, L3200.0500, L509.6000 ####[facility] [address] [place], [place], [address] ALCA 4 units Normal 0-60 [facility] Comment on above: Order Comment: Test( s) 667804-Yuwvoeohtcr; 436387-Eeree Activity, Plasmawas developed and its performance characteristicsdetermined by [facility]. It has not been cleared or approvedby the Food and Drug Administration.NN Result Comment: Nega tive:<55 Equivocal: 55-60 Positive: >60 Performed By: #### L 3300.1000, L501.6710, L3100.3425, L2100.0000, L3100.5017, L101.9900, L3300.1050, L3200.1100, L100.0100, L501.2450, L501.2400, L500.4050, L3200.0500, L509.6000 ####[facility] [address] [place], [place], [address] AMCA 22 units Normal 0-100 [facility] Comment on above: Order Comment: Test( s) 785158-Uesdzusvrcf; 779420-Zkrpz Activity, Plasmawas developed and its performance characteristicsdetermined [...] L3200.1100, L100.0100, L501.2450, L501.2400, L500.4050, L3200.0500, L509.6000 ####[facility] [address] [place], [place], [address] Atypical pANCA Negative Normal Negative [facility] Comment on above: Order Comment: Test( s) 881446-Ddellvhpwrt; 329041-Negnh Activity, Plasmawas developed and its performance characteristicsdetermined by [facility]. It has not been cleared or approvedby the Food and Drug Administration.NN Performed By: #### L 3300.1000, L501.6710, L3100.3425, L2100.0000, L3100.5017, L101.9900, L3300.1050, L3200.1100, L100.0100, L501.2450, L501.2400, L500.4050, L3200.0500, L509.6000 ####[facility] [address] [place], [place], [address] COMMENT Comment Normal . [facility] Comment on above: Order Comment: Test( s) 168955-Kehddhorara; 249228-Kodjw Activity, Plasmawas developed and its performance characteristicsdetermined by [facility]. It has not been cleared or approvedby the Food and Drug Administration.NN Result Comment: Aundrea antoni is not suggestive of Inflammatory Bowel Disease Performed By: #### L 3300.1000, L501.6710, L3100.3425, L2100.0000, L3100.5017, L101.9900, L3300.1050, L3200.1100, L100.0100, L501.2450, L501.2400, L500.4050, L3200.0500, L509.6000 ####[facility] [address] [place], [place], [address] Lenny 22 units Normal 0-50 [facility] Comment on above: Order Comment: Test( s) 980618-Umetqldcimg; 392665-Kcmqa Activity, Plasmawas developed and its performance characteristicsdetermined by [facility]. It has not been cleared or approvedby the Food and Drug Administration.NN Result Comment: Nega tive: <45 Equivocal: 45-50 Positive: >50 Performed By: #### L 3300.1000, L501.6710, L3100.3425, L2100.0000, L3100.5017, L101.9900, L3300.1050, L3200.1100, L100.0100, L501.2450, L501.2400, L500.4050, L3200.0500, L509.6000 ####[facility] [address] [place], [place], [phone] Renin/Aldosterone Activityon 06-27-2024 ALD/RENIN RATIO 2.3 Normal 0.0-30.0 [facility] Comment on above: Order Comment: Test( s) 610443-Froxsirdula; 453244-Cdufy Activity, Plasmawas developed and its performance characteristicsdetermined by [facility]. It has not been cleared or approvedby the Food and Drug Administration.NN Result Comment: Unit s: ng/dL per ng/mL/hr Performed By: #### L 3300.1000, L501.6710, L3100.3425, L2100.0000, L3100.5017, L101.9900, L3300.1050, L3200.1100, L100.0100, L501.2450, L501.2400, L500.4050, L3200.0500, L509.6000 ####[facility] [address] [facility]. [place], [place], [phone] ALDOSTERONE,S 3.4 ng/dL Normal 0.0-30.0 [facility] Comment on above: Order Comment: Test( s) 433573-Zeghsshncru; 315108-Uilvi Activity, Plasmawas developed and its performance characteristicsdetermined by [employer]. It has not been cleared or approvedby the Food and Drug Administration.NN Performed By: #### L 3300.1000, L501.6710, L3100.3425, L2100.0000, L3100.5017, L101.9900, L3300.1050, L3200.1100, L100.0100, L501.2450, L501.2400, L500.4050, L3200.0500, L509.6000 ####[facility] [address] [facility]. [place], [place], [address] RENIN, PLASMA 1.500 ng/mL/hr Normal 0.167-5.380 [facility] Comment on above: Order Comment: Test( s) 696951-Twtcdgszbwm; 462635-Gfory Activity, Plasmawas developed and its performance characteristicsdetermined by [facility]. It has not been cleared or approvedby the Food and Drug Administration.NN Performed By: #### L 3300.1000, L501.6710, L3100.3425, L2100.0000, L3100.5017, L101.9900, L3300.1050, L3200.1100, L100.0100, L501.2450, L501.2400, L500.4050, L3200.0500, L509.6000 ####[facility] [address] [facility]. [place], [place], [address] CT Abd/Pelvis W/WO Contrasto n 06-23-2024 CT Abd/Pelvis W/WO Contrast [facility] [address] [place], [place] [address] CT Abd/Pelvis W/WO Contrast MR#: [id number] Acct: [id number] Name: DOM AVILA Rep #: [id number] : 1955 F 68 From: Justen lance MD PCP: Dr. Clifton Hung MD Status: [facility] Study: CT Abd/Pelvis W/WO Contrast Date of Exam: 06/08 05/01 Exam# [id number] Ordering Dr: Carson Alcantar DO [id number] STUDY: CT ABDOMEN AND PELVIS WITH AND [...] Dr. Clifton Hung MD; Carson Alcantar DO Process Consultant: Signed Normal [facility] Bedside Glucoseon 06-19-2024 FINGERSTICK GLU 150 mg/dL High 74-106 [facility] Comment on above: Result Comment: KAYA GEMENT OF PATIENT CARE PER NURSING PROTOCOL Performed By: #### L 501.080 ####[facility] [address] [place], [address] Colonoscopy Reporton 024 Colonoscopy Report [facility] Medical Records Department [address] [place] [address] Colonoscopy Report MR#: [id number] Acct: [id number] Name: DOM AVILA Rep #: [id number] : 1955 68 From: Carson Alcantar DO PCP: Dr. Clifton Hung MD Status:[facility] [place] [place] Patient Name: Dom Avila Procedure Date: 06/19/2024 [...] screening purposes. Procedure Code(s): --- Professional --- 01561, Colonoscopy, flexible; with biopsy, single or multiple CPT copyright 2021 [employer]. All rights reserved. The codes documented in this report are preliminary and upon arc welder review may be revised to meet current compliance requirements. Carson Alcantar DO 06/19/2024 11:39:02 AM This report has been signed electronically. Number of Addenda: 0 Note Initiated On: 06/19/2024 11:18 AM 06/19/24 1139 Date Carson Alcantar DO Cosigner Signature: Date (if indicated) CC: Dr. Clifton Hung MD; Carson Alcantar DO Date Dictated: (more content not included)... Normal [facility] EGD Reporton 06-19-2024 EGD Report [facility] Medical Records Department [address] [place] [address] EGD Report MR#: [id number] Acct: [id number] Name: DOM AVILA Rep #: [id number] : 1955 68 From: Carson Alcantar DO PCP: Dr. Clifton Hung MD Status:[facility] Patient Name: Dom Avila Procedure Date: 06/19/2024 [...] pathology results. Procedure Code(s): --- Professional --- 16704, Esophagogastroduodenos copy, flexible, transoral; with biopsy, single or multiple CPT copyright 2021 [employer]. All rights reserved. The codes documented in this report are preliminary and upon arc welder review may be revised to meet current compliance requirements. Carson Alcantar DO 06/19/2024 11:36:11 AM This report has been signed electronically. Number of Addenda: 0 Note Initiated On: 06/19/2024 11:05 AM 06/19/24 1136 Date Carson Cool Signature: Date (if indicated) CC: Dr. Clifton Hung MD; Carson Alcantar DO Date Dictated: 06/19/241104 Date Transcribed: Process Consultant: BETTY Signed Normal [facility] H Pylori (initial)on H Pylori (initial) -- ---- Patient Age/Sex Location Account Attending Physician ---- DOM AVILA 68/F EN [id number] Carson Alcantar DO ---- Specimen: [id number] Received: 06/19/24-1553 Status: SOL Roland Num: [id number] Spec Type: IMMUNO Subm Dr: Carson Alcantar DO PHYSICIAN INSTITUTION [facility] [address] [place], [place] [address] SPECIMEN INFORMATION: Tissue Source: B- Gastric body biopsy Clinical Info: Elevated CA 19-9 level, diarrhea Specimen Number: [id number] CPT code: 27333 METHODOLOGY: Deparaffinized sections of prefer/formalin-fixed tissue or [...] developed and their performance characteristics determined by [facility]. They may not have been [...] Dexter Orta MD 06/30/24 1436 ---- Normal [facility] Comment on above: Performed By: #### P H.PYLORI #### [facility] [address] [facility]. [place], [place], [address] MR/POSTOP.Jimena 06-19-2024 MR/POSTOP.[facility] Medical Records Department [address] [place] [address] Anesthesia Postop Eval I 06/19/24 1141 MR#: [id number] Acct: [id number] Name: DOM AVILA Rep #: [id number] : 1955 68 From: Erasto Medina PCP: Dr. Clifton Hung MD Status:[facility] Y Race: C Location: [place] [address] Anesthesia: Postop Eval I Current Vital Signs [...] Erasto Hoyt Signature: Date CC: Signed Normal [facility] MR/GFCEVDPI0zu 06-19-2024 [facility] Medical Records Department [address] [place] [address] Anesthesia Postop Eval II 06/19/24 1336 MR#: [id number] Acct: [id number] Name: DOM AVILA Rep #: [id number] : 1955 68 From: Pee Lomeli MD PCP: Dr. Clifton Hung MD Status:[facility] Y Race: C Location: EN Anesthesia Postop [...] Anesthesia Complication: No 06/19/24 1336 Date Pee Hyot Signature: Date CC: Signed Normal [facility] Surgery Specimen Level Rikki 06-19-2024 Surgery Specimen Level IV ---- Patient Age/Sex Location Account Attending Physician ---- DOM AVILA 68/F EN [id number] Carson Alcantar DO ---- Specimen: [id number] Received: 06/19/24 Status: SOL Roland Num: [id number] Spec Type: COLON BX Subm Dr: Carson [...] for Helicobacter pylori will be reported separately ([id number]). MICROSCOPIC DESCRIPTION Slides are reviewed. B. The [...] Attending Physician ---- DOM AVILA 68/F EN [id number] Carson Alcantar DO ---- in one cassette. D. Received in fixative is one container labeled with the patient's name and designated Random colon biopsy. The specimen consists of multiple irregular fragments of light jaramillo soft tissue that in aggregate measure 2.5 x 0.6 x 0.1 cm. The specimen is totally submitted in one cassette. Domingo 06/20/2024 TC:3 CPT:10368x3 ---- Patient Age/Sex Location Account Attending Physician ---- DOM AVILA 68/F EN [id number] Carson Alcantar DO ---- Signed (signature on file) Dr. Dexter Orta MD 06/21/24 1120 ---- Normal [facility] Comment on above: Performed By: #### P SUIV ####[facility] [address] [place], [address] M7400.3302on 06-15-2024 M7400.3302 __ TESTING PERFORMED AT [facility]. ORIGINAL REPORT ON FILE IN LAB CONTAINS ADDITIONAL TEST SITE INFORMATION. Giardia Lamblia EIA NEGATIVE Normal [facility] Comment on above: Performed By: #### M 100.0605, M7400.3302, L7000.0300, L7000.0700, M600.5000, L7000.0750 ####[facility] [address] [place], [address] Ova and Parasites 8623on OP OVA AND PARASITES EXAM, ROUTINE These results were obtained using wet preparation(s) and trichrome stained smear. This test does not include testing for Crytosporidium parvum, Cyclospora, or Microsporidia. O+P Spec Micro One negative specimen does not rule out the possibility of a parasitic infection. TESTING PERFORMED AT [facility]. ORIGINAL REPORT ON FILE IN LAB CONTAINS ADDITIONAL TEST SITE INFORMATION. Ova/Parasite Exam NO OVA, CYSTS, OR PARASITES FOUND. Normal [facility] Comment on above: Performed By: #### M 100.0605, M7400.3302, L7000.0300, L7000.0700, M600.5000, L7000.0750 ####[facility] [address] [place], [address] Calprotectin, Stoolon [address] 111 ug/g Normal 0-120 [facility] Comment on above: Order Comment: Test( s) 456894-Xhkr, Neutral; 884491-Tuce, Total was developed and its performance characteristics determined by [facility]. It has not been cleared or approved by the Food and Drug Administration. Result Comment: Conc entration Interpretation Follow-Up < 5 - 50 ug/g Normal None >50 -120 ug/g Borderline Re-evaluate in 4-6 weeks >120 ug/g Abnormal Repeat as clinically indicated Performed at: [facility] [address] [id number] Electronic Health Records Specialist: Timoteo Berumen PhD, Phone: [phone] Performed at: [facility] Lab[address] [id number] Electronic Health Records Specialist: Benson Osei MD, Phone: [phone] Performed By: #### M 100.0605, M7400.3302, L7000.0300, L7000.0700, M600.5000, L7000.0750 #### [facility] [address] [place], [place], [address] Fecal Fat, Qualitativeon FATS, NEUTRAL Normal Normal . [facility] Comment on above: Order Comment: Test( s) 258978-Yjrz, Neutral; 670630-Inpk, Total was developed and its performance characteristics determined by [facility]. It has not been cleared or approved by the Food and Drug Administration. Result Comment: Norm al (<60 Droplets/HPF) Performed By: #### M 100.0605, M7400.3302, L7000.0300, L7000.0700, M600.5000, L7000.0750 #### [facility] [address] [place], [address] FATS, TOTAL Normal Normal . [facility] Comment on above: Order Comment: Test( s) 926844-Ksca, Neutral; 098313-Yvgv, Total was developed and its performance characteristics determined by [facility]. It has not been cleared or approved by the Food and Drug Administration. Result Comment: Norm al (<100 Droplets/HPF) Performed By: #### M 100.0605, M7400.3302, L7000.0300, L7000.0700, M600.5000, L7000.0750 #### [facility] [address] [place], [address] L7000.0750on 06-08-2024 P ELASTASE,FECA > 800 Normal >200 [facility] Comment on above: Result Comment: Resu lt Units: ug Elast./g Severe Pancreatic Insufficiency: <100 Moderate Pancreatic Insufficiency: 100 - 200 Normal: >200 Performed at: - [address] [id number] Electronic Health Records Specialist: Benson Osei MD, Phone: [phone] Performed By: #### M 100.0605, M7400.3302, L7000.0300, L7000.0700, M600.5000, L7000.0750 #### [facility] [address] [place], [address] Stool Lactoferrin/WBCon 05-10 WBCST Normal Reference Ran ge = Negative Fecal WBC Lactoferrin Negative: No Fecal WBC Lactoferrin present Normal [facility] Comment on above: Performed By: #### M 100.0605, M7400.3302, L7000.0300, L7000.0700, M600.5000, L7000.0750 #### [facility] [address] [place], [address] Amylaseon 06-05-2024 SIMA 52 U/L Normal 25-115 [facility] Comment on above: Performed By: #### L 3300.1000, L501.6710, L3100.3425, L2100.0000, L3100.5017, L101.9900, L3300.1050, L3200.1100, L100.0100, L501.2450, L501.2400, L500.4050, L3200.0500, L509.6000 ####[facility] [address] [place], [address] CBC W/Diff, Automatedon 07-2 Absolute Lymph 1.78 X10 3/uL Normal 0.83-4.51 [facility] Comment on above: Performed By: #### L 3300.1000, L501.6710, L3100.3425, L2100.0000, L3100.5017, L101.9900, L3300.1050, L3200.1100, L100.0100, L501.2450, L501.2400, L500.4050, L3200.0500, L509.6000 ####[facility] [address] [facility] [place], [address] Absolute Neut 2.5 X10 3/uL Normal 2.0-7.7 [facility] Comment on above: Performed By: #### L 3300.1000, L501.6710, L3100.3425, L2100.0000, L3100.5017, L101.9900, L3300.1050, L3200.1100, L100.0100, L501.2450, L501.2400, L500.4050, L3200.0500, L509.6000 ####[facility] [address] [facility], [address] Basophils/100 WBC (Bld) 0.4 % Normal 0-1 [facility] Comment on above: Performed By: #### L 3300.1000, L501.6710, L3100.3425, L2100.0000, L3100.5017, L101.9900, L3300.1050, L3200.1100, L100.0100, L501.2450, L501.2400, L500.4050, L3200.0500, L509.6000 ####[facility] [address] [facility] [place], [address] Eosinophils/100 WBC (Bld) 0.8 % Normal 0-5 [facility] Comment on above: Performed By: #### L 3300.1000, L501.6710, L3100.3425, L2100.0000, L3100.5017, L101.9900, L3300.1050, L3200.1100, L100.0100, L501.2450, L501.2400, L500.4050, L3200.0500, L509.6000 ####[facility] [address] [facility], [address] Erythrocyte distribution width (RBC) [Ratio] 13.6 % Normal 11.6-14.6 [facility] Comment on above: Performed By: #### L 3300.1000, L501.6710, L3100.3425, L2100.0000, L3100.5017, L101.9900, L3300.1050, L3200.1100, L100.0100, L501.2450, L501.2400, L500.4050, L3200.0500, L509.6000 ####[facility] [address] [facility], [address] Hematocrit (Bld) [Volume fraction] 34.7 % Low 37-47 [facility] Comment on above: Performed By: #### L 3300.1000, L501.6710, L3100.3425, L2100.0000, L3100.5017, L101.9900, L3300.1050, L3200.1100, L100.0100, L501.2450, L501.2400, L500.4050, L3200.0500, L509.6000 ####[facility] [address] [facility] [place], [place], [address] Hemoglobin (Bld) [Mass/Vol] 11.2 g/dL Low 12.0-15.0 [facility] Comment on above: Performed By: #### L 3300.1000, L501.6710, L3100.3425, L2100.0000, L3100.5017, L101.9900, L3300.1050, L3200.1100, L100.0100, L501.2450, L501.2400, L500.4050, L3200.0500, L509.6000 ####[facility] [address] [place], [address] IG% 0.400 Normal 0.0-0.9 [facility] Comment on above: Result Comment: IG% - Immature Granulocytes (promyelocytes, myelocytes and metamyelocytes) > 1% indicates that a LEFT SHIFT is Present. Performed By: #### L 3300.1000, L501.6710, L3100.3425, L2100.0000, L3100.5017, L101.9900, L3300.1050, L3200.1100, L100.0100, L501.2450, L501.2400, L500.4050, L3200.0500, L509.6000 ####[facility] [address] [place], [address] Lymphocytes/100 WBC (Bld) 37.6 % Normal 19-41 [facility] Comment on above: Performed By: #### L 3300.1000, L501.6710, L3100.3425, L2100.0000, L3100.5017, L101.9900, L3300.1050, L3200.1100, L100.0100, L501.2450, L501.2400, L500.4050, L3200.0500, L509.6000 ####[facility] [address] [place], [address] MCH (RBC) [Entitic mass] 29.9 pg Normal 27.0-32.0 [facility] Comment on above: Performed By: #### L 3300.1000, L501.6710, L3100.3425, L2100.0000, L3100.5017, L101.9900, L3300.1050, L3200.1100, L100.0100, L501.2450, L501.2400, L500.4050, L3200.0500, L509.6000 ####[facility] [address] [place], [address] MCHC (RBC) [Mass/Vol] 32.3 g/dL Normal 32-36 [facility] Comment on above: Performed By: #### L 3300.1000, L501.6710, L3100.3425, L2100.0000, L3100.5017, L101.9900, L3300.1050, L3200.1100, L100.0100, L501.2450, L501.2400, L500.4050, L3200.0500, L509.6000 ####[facility] [address] [place], [address] MCV (RBC) [Entitic vol] 92.5 fL Normal 81-99 [facility] Comment on above: Performed By: #### L 3300.1000, L501.6710, L3100.3425, L2100.0000, L3100.5017, L101.9900, L3300.1050, L3200.1100, L100.0100, L501.2450, L501.2400, L500.4050, L3200.0500, L509.6000 ####[facility] [address] [place], [address] Monocytes/100 WBC (Bld) 8.0 % Normal 0-10 [facility] Comment on above: Performed By: #### L 3300.1000, L501.6710, L3100.3425, L2100.0000, L3100.5017, L101.9900, L3300.1050, L3200.1100, L100.0100, L501.2450, L501.2400, L500.4050, L3200.0500, L509.6000 ####[facility] [address] [place], [address] Neutrophils/100 WBC (Bld) 52.8 % Normal 47-70 [facility] Comment on above: Performed By: #### L 3300.1000, L501.6710, L3100.3425, L2100.0000, L3100.5017, L101.9900, L3300.1050, L3200.1100, L100.0100, L501.2450, L501.2400, L500.4050, L3200.0500, L509.6000 ####[facility] [address] [place], [place], [phone] Nucleated RBC (Bld) [#/Vol] 0 10*3/uL Normal 0-5 [facility] Comment on above: Performed By: #### L 3300.1000, L501.6710, L3100.3425, L2100.0000, L3100.5017, L101.9900, L3300.1050, L3200.1100, L100.0100, L501.2450, L501.2400, L500.4050, L3200.0500, L509.6000 ####[facility] [address] [place], [place], [phone] Platelet mean volume (Bld) [Entitic vol] 10.1 fL Normal 6.2-12.0 [facility] Comment on above: Performed By: #### L 3300.1000, L501.6710, L3100.3425, L2100.0000, L3100.5017, L101.9900, L3300.1050, L3200.1100, L100.0100, L501.2450, L501.2400, L500.4050, L3200.0500, L509.6000 ####[facility] [address] [place], [place], [phone] Platelets (Bld) [#/Vol] 186 10*3/uL Normal 150-450 [facility] Comment on above: Performed By: #### L 3300.1000, L501.6710, L3100.3425, L2100.0000, L3100.5017, L101.9900, L3300.1050, L3200.1100, L100.0100, L501.2450, L501.2400, L500.4050, L3200.0500, L509.6000 ####[facility] [address] [place], [address] RBC (Bld) [#/Vol] 3.75 10*6/uL Low 4.2-5.4 [facility] Comment on above: Performed By: #### L 3300.1000, L501.6710, L3100.3425, L2100.0000, L3100.5017, L101.9900, L3300.1050, L3200.1100, L100.0100, L501.2450, L501.2400, L500.4050, L3200.0500, L509.6000 ####[facility] [address] [place], [address] RDW SD 46.4 fl High 35.1-43.9 [facility] Comment on above: Performed By: #### L 3300.1000, L501.6710, L3100.3425, L2100.0000, L3100.5017, L101.9900, L3300.1050, L3200.1100, L100.0100, L501.2450, L501.2400, L500.4050, L3200.0500, L509.6000 ####[facility] [address] [place], [address] WBC (Bld) [#/Vol] 4.7 10*3/uL Normal 4.4-11.0 [facility] Comment on above: Performed By: #### L 3300.1000, L501.6710, L3100.3425, L2100.0000, L3100.5017, L101.9900, L3300.1050, L3200.1100, L100.0100, L501.2450, L501.2400, L500.4050, L3200.0500, L509.6000 ####[facility] [address] [place], [address] CORTISOL SERUMon 06-05-2024 CORTISOL 14.80 ug/dL Normal 3.44-22.45 [facility] Comment on above: Result Comment: Adul t (AM) 5.27 - 22.45 ug/dL Adult (PM) 3.44 - 16.76 ug/dL Please note revised CORTISOL reference range effective 2020. Performed By: #### L 3300.1000, L501.6710, L3100.3425, L2100.0000, L3100.5017, L101.9900, L3300.1050, L3200.1100, L100.0100, L501.2450, L501.2400, L500.4050, L3200.0500, L509.6000 ####[facility] [address] [place], [place], [address] CRPon 06-05-2024 C-REACTIVE PROT < 2.90 Normal 0.0-3.0 [facility] Comment on above: Result Comment: C-Re active Protein (CRP) provides useful information for the diagnosis, therapy and monitoring of inflammatory processes and associated diseases. For the evaluation of Relative Risk for Cardiovascular Disease, a High Sensitivity CRP (HSCRP) should be ordered. Performed By: #### L 3300.1000, L501.6710, L3100.3425, L2100.0000, L3100.5017, L101.9900, L3300.1050, L3200.1100, L100.0100, L501.2450, L501.2400, L500.4050, L3200.0500, L509.6000 ####[facility] [address] [place], [place], [address] Comprehensive Metabolic Prof ilon 06-05-2024 Albumin [Mass/Vol] 3.1 g/dL Low 3.2-5.0 [facility] Comment on above: Performed By: #### L 3300.1000, L501.6710, L3100.3425, L2100.0000, L3100.5017, L101.9900, L3300.1050, L3200.1100, L100.0100, L501.2450, L501.2400, L500.4050, L3200.0500, L509.6000 ####[facility] [address] [place], [place], [phone] Albumin/Globulin [Mass ratio] 0.9 {ratio} Normal 0.9-2.4 [facility] Comment on above: Performed By: #### L 3300.1000, L501.6710, L3100.3425, L2100.0000, L3100.5017, L101.9900, L3300.1050, L3200.1100, L100.0100, L501.2450, L501.2400, L500.4050, L3200.0500, L509.6000 ####[facility] [address] [place], [place], [phone] ALK P 37 U/L Low 45-117 [facility] Comment on above: Performed By: #### L 3300.1000, L501.6710, L3100.3425, L2100.0000, L3100.5017, L101.9900, L3300.1050, L3200.1100, L100.0100, L501.2450, L501.2400, L500.4050, L3200.0500, L509.6000 ####[facility] [address] [place], [place], [phone] ALT [Catalytic activity/Vol] 15 U/L Normal 13-56 [facility] Comment on above: Performed By: #### L 3300.1000, L501.6710, L3100.3425, L2100.0000, L3100.5017, L101.9900, L3300.1050, L3200.1100, L100.0100, L501.2450, L501.2400, L500.4050, L3200.0500, L509.6000 ####[facility] [address] [place], [address] AST [Catalytic activity/Vol] 16 U/L Normal 15-37 [facility] Comment on above: Performed By: #### L 3300.1000, L501.6710, L3100.3425, L2100.0000, L3100.5017, L101.9900, L3300.1050, L3200.1100, L100.0100, L501.2450, L501.2400, L500.4050, L3200.0500, L509.6000 ####[facility] [address] [place], [place], [phone] Bilirubin [Mass/Vol] 0.20 mg/dL Normal 0.20-1.00 [facility] Comment on above: Result Comment: For patients on eltrombopag therapy, use of Dimension [place] TBIL is not recommended. Performed By: #### L 3300.1000, L501.6710, L3100.3425, L2100.0000, L3100.5017, L101.9900, L3300.1050, L3200.1100, L100.0100, L501.2450, L501.2400, L500.4050, L3200.0500, L509.6000 ####[facility] [address] [place], [place], [phone] BUN/CRE 18.3 RATIO Normal 10-20 [facility] Comment on above: Performed By: #### L 3300.1000, L501.6710, L3100.3425, L2100.0000, L3100.5017, L101.9900, L3300.1050, L3200.1100, L100.0100, L501.2450, L501.2400, L500.4050, L3200.0500, L509.6000 ####[facility] [address] [place], [place], [phone] CA,Total 8.3 mg/dL Low 8.5-10.1 [facility] Comment on above: Performed By: #### L 3300.1000, L501.6710, L3100.3425, L2100.0000, L3100.5017, L101.9900, L3300.1050, L3200.1100, L100.0100, L501.2450, L501.2400, L500.4050, L3200.0500, L509.6000 ####[facility] [address] [place], [address] Chloride [Moles/Vol] 108 mmol/L High 98-107 [facility] Comment on above: Performed By: #### L 3300.1000, L501.6710, L3100.3425, L2100.0000, L3100.5017, L101.9900, L3300.1050, L3200.1100, L100.0100, L501.2450, L501.2400, L500.4050, L3200.0500, L509.6000 ####[facility] [address] [place], [address] CO2 [Moles/Vol] 29.0 mmol/L Normal 21.0-32.0 [facility] Comment on above: Performed By: #### L 3300.1000, L501.6710, L3100.3425, L2100.0000, L3100.5017, L101.9900, L3300.1050, L3200.1100, L100.0100, L501.2450, L501.2400, L500.4050, L3200.0500, L509.6000 ####[facility] [address] [place], [address] Creatinine [Mass/Vol] 0.82 mg/dL Normal 0.55-1.02 [facility] Comment on above: Result Comment: The validity of the calculated GFR GFRAA in patients over 70 years has not been determined. Clinical correlation is essential. Performed By: #### L 3300.1000, L501.6710, L3100.3425, L2100.0000, L3100.5017, L101.9900, L3300.1050, L3200.1100, L100.0100, L501.2450, L501.2400, L500.4050, L3200.0500, L509.6000 ####[facility] [address] [place], [address] EST GFR - AA 89 mL/min Normal >60 [facility] Comment on above: Result Comment: Afri can Iranian GFR Calc Performed By: #### L 3300.1000, L501.6710, L3100.3425, L2100.0000, L3100.5017, L101.9900, L3300.1050, L3200.1100, L100.0100, L501.2450, L501.2400, L500.4050, L3200.0500, L509.6000 ####[facility] [address] [place], [place], [phone] GAP 3 Low 5-15 [facility] Comment on above: Performed By: #### L 3300.1000, L501.6710, L3100.3425, L2100.0000, L3100.5017, L101.9900, L3300.1050, L3200.1100, L100.0100, L501.2450, L501.2400, L500.4050, L3200.0500, L509.6000 ####[facility] [address] [place], [address] GFR/1.73 sq M.predicted among non-blacks MDRD (S/P/Bld) [Vol rate/Area] 74 mL/min/{1.73_m2} Normal >60 [facility] Comment on above: Result Comment: Non- GFR Calc Performed By: #### L 3300.1000, L501.6710, L3100.3425, L2100.0000, L3100.5017, L101.9900, L3300.1050, L3200.1100, L100.0100, L501.2450, L501.2400, L500.4050, L3200.0500, L509.6000 ####[facility] [address] [place], [place], [phone] Globulin (S) [Mass/Vol] 3.4 g/dL Normal 2.2-4.2 [facility] Comment on above: Performed By: #### L 3300.1000, L501.6710, L3100.3425, L2100.0000, L3100.5017, L101.9900, L3300.1050, L3200.1100, L100.0100, L501.2450, L501.2400, L500.4050, L3200.0500, L509.6000 ####[facility] [address] [place], [address] Glucose [Mass/Vol] 158 mg/dL High 74-106 [facility] Comment on above: Result Comment: Fast ing Glucose result greater than or equal to 126 mg/dL suggests DIABETES MELLITUS per A.D.A. criteria. Performed By: #### L 3300.1000, L501.6710, L3100.3425, L2100.0000, L3100.5017, L101.9900, L3300.1050, L3200.1100, L100.0100, L501.2450, L501.2400, L500.4050, L3200.0500, L509.6000 ####[facility] [address] [place], [address] Potassium [Moles/Vol] 3.3 mmol/L Low 3.5-5.1 [facility] Comment on above: Performed By: #### L 3300.1000, L501.6710, L3100.3425, L2100.0000, L3100.5017, L101.9900, L3300.1050, L3200.1100, L100.0100, L501.2450, L501.2400, L500.4050, L3200.0500, L509.6000 ####[facility] [address] [place], [address] Sodium [Moles/Vol] 140 mmol/L Normal 136-145 [facility] Comment on above: Performed By: #### L 3300.1000, L501.6710, L3100.3425, L2100.0000, L3100.5017, L101.9900, L3300.1050, L3200.1100, L100.0100, L501.2450, L501.2400, L500.4050, L3200.0500, L509.6000 ####[facility] [address] [place], [place], [phone] T PROT 6.5 g/dL Normal 6.4-8.2 [facility] Comment on above: Performed By: #### L 3300.1000, L501.6710, L3100.3425, L2100.0000, L3100.5017, L101.9900, L3300.1050, L3200.1100, L100.0100, L501.2450, L501.2400, L500.4050, L3200.0500, L509.6000 ####[facility] [address] [place], [place], [phone] Urea nitrogen [Mass/Vol] 15 mg/dL Normal 7-18 [facility] Comment on above: Performed By: #### L 3300.1000, L501.6710, L3100.3425, L2100.0000, L3100.5017, L101.9900, L3300.1050, L3200.1100, L100.0100, L501.2450, L501.2400, L500.4050, L3200.0500, L509.6000 ####[facility] [address] [place], [place], [phone] Erythrocyte Sed Rateon 06-05 SED RATE < 1 Normal 0-30 [facility] Comment on above: Performed By: #### L 3300.1000, L501.6710, L3100.3425, L2100.0000, L3100.5017, L101.9900, L3300.1050, L3200.1100, L100.0100, L501.2450, L501.2400, L500.4050, L3200.0500, L509.6000 ####[facility] [address] [place], [place], [phone] Gastroenterology Visit Repor ton 06-05-2024 Gastroenterology Visit Report [facility] [address] [place] [address] OFFICE VISIT Date of Service: 06/05/24 MR#: [id number] Acct: [id number] Name: DOM AVILA Rep #: [id number] : 1955 Provider: Carson Alcantar DO Age/Sex: 68/F [place] [facility] [place] Status: Signed Intake Vital Signs 09/11/23 14:30 [...] mg PO DAILY 11/30/22 06/05/24 History release cspokl-kefcizgl-dcdupd e See Rx Instructions PO .COMPLEX 03/04/23 [...] of other medications Atherosclerotic heart disease of [place] coronary artery without angina pectoris Cardiovascular stress [...] of parathyroidectomy (more content not included)... Normal [facility] Lipaseon 06-05-2024 Lipase [Catalytic activity/Vol] 109 U/L High 13-75 [facility] Comment on above: Result Comment: Rom mendosa note: LIPASE revised reference range effective 23. New Lipase methodology. Expected to produce lower values than the previous assay method. NEW Reference Range: 13 - 75 U/L Performed By: #### L 3300.1000, L501.6710, L3100.3425, L2100.0000, L3100.5017, L101.9900, L3300.1050, L3200.1100, L100.0100, L501.2450, L501.2400, L500.4050, L3200.0500, L509.6000 ####[facility] [address] 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) (01/09/2017), Garibay's cyst of knee, left (03/02/2018), Breast neoplasm, Tis (DCIS), 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), CAD (coronary artery disease), Cataract, Colon polyp (2011), Controlled type 2 diabetes mellitus without complication, without long-term current use of insulin ([facility]) (10/22/2016), De Quervain's tenosynovitis, left (07/31/2019), Diabetic eye exam ([facility]) (01/16/2016), Ductal carcinoma in situ (DCIS) of [...] includes the following prescription(s): doxycycline, coenzyme q10, aiflkb-bmkeevql-pihxfv e, lisinopril, fluconazole, estradiol, tamoxifen, pioglitazone, omeprazole, [...] cancer in her (more content not included)... [facility] Shannon 05-23-2024 JHONATAN Telephone (UROUPD) DOM AVILA ([id number]) 1955 F Date Time Provider Department 05/23/24 [...] Signed She probably should go to another before school. She has a 2.4cm adrenal adenoma @Nicole, can the referral be faxed to [facility] to see if they have sooner availability? DO Cale Leroy Ashley, [place] 05/24/2024 12:43 PM Signed Referral Faxed Via [facility] RAUL Arambula Jane 05/25/2024 12:27 PM Signed [...] MG DAILY August 23, 2019 3:27pm - squvdl-bkmzrasp-vzpblu e (CREON 36) 36,000-114,000- 180,000 unit delayed [...] 2 diabetes mellitus without com*10/22/2016 Atherosclerosis of [place] coronary artery with *01/09/2017 S/P angioplasty with stent [Z95.820] 01/09/2017 Meniere disease, right [H81.01] 10/29/2017 H (more content not included)... [facility] Telephone (URUN) DOM AVILA ([id number]) 1955 F Date Time Provider Department 05/23/24 ORI LANDIN During your visit today, we recorded the following information about you: Nicole Madsen MA 05/23/2024 4:04 PM Signed Consult to Endocrinology at [facility] faxed [facility] Nicole Madsen MA Allergies As of [...] MG DAILY August 23, 2019 3:27pm - zcmifv-mgbbgitg-zqwwee e (CREON 36) 36,000-114,000- 180,000 unit delayed [...] 2 diabetes mellitus without com*10/22/2016 Atherosclerosis of [place] coronary artery with *01/09/2017 S/P angioplasty with [...] Status:Closed by NICOLE MADSEN on 05/23/[address] [facility] Urinalysis complete panel (U )Ordered By: Tammi Shaver on 05-23-2024 Bacteria LM.HPF (Urine sed) [#/Area] Moderate Abnormal None Seen /HPF [facility] Bilirubin Ql (U) Negative Negative [facility] Clarity (Unsp spec) Clear Clear [facility] Color (U) Yellow Yellow [facility] Epithelial cells LM.HPF (Urine sed) [#/Area] Many /HPF [facility] Glucose Test strip (U) [Mass/Vol] Negative Negative [facility] Hemoglobin Ql (U) Negative Negative [facility] Interpretation and review of laboratory results Abnormal [facility] Ketones Ql (U) Negative Negative [facility] Leukocyte esterase Test strip Ql (U) 2+ Abnormal Negative [facility] Nitrite Ql (U) Negative Negative [facility] pH (U) 6.0 [pH] 5.0 - 8.0 [facility] Protein (U) [Mass/Vol] Negative Negative [facility] RBC LM.HPF (Urine sed) [#/Area] 3-5 /HPF Abnormal 0-3 /HPF [facility] Specific gravity (U) [Rel density] 1.015 1.005 - 1.030 [facility] Urobilinogen Ql (U) 0.2 EU/dL 0.2-1.0 EU/dL [facility] WBC LM.HPF (Urine sed) [#/Area] 11-25 /HPF Abnormal 0-5 /HPF [facility] Urinalysis complete panel (U )on 05-23-2024 Bacteria LM.HPF (Urine sed) [#/Area] Moderate Abnormal None Seen [facility] Comment on above: Order Comment: Speci men Type: URINE SPECIMENOrdering Facility: [facility] Address: [address] [place] [address] Performed By: #### 2 4356-8 ####[facility] LABCLIA [id number] [place] [id number] [place] Bilirubin Ql (U) Negative Normal Negative [facility] Comment on above: Order Comment: Speci men Type: URINE SPECIMENOrdering Facility: [facility] Address: [address] [place] [address] Performed By: #### 2 4356-8 ####[facility] LABIA [id number] [place] [id number] [place] Clarity (Unsp spec) Clear Normal Clear [facility] Comment on above: Order Comment: Speci men Type: URINE SPECIMENOrdering Facility: [facility] Address: [address] [place] [address] Performed By: #### 2 4356-8 ####[facility]NORT[facility]AST[facility] [id number] [place] [address] [place] Color (U) Yellow Normal Yellow [facility] Comment on above: Order Comment: Speci men Type: URINE SPECIMENOrdering Facility: [facility] Address: [address] [place] [address] Performed By: #### 2 4356-8 ####[facility] LABIA [id number] [place] [address] [place] Epithelial cells LM.HPF (Urine sed) [#/Area] Many Normal [facility] Comment on above: Order Comment: Speci men Type: URINE SPECIMENOrdering Facility: [facility] Address: [address] [place] [address] Performed By: #### 2 4356-8 ####[facility] LABIA [id number] [place] [address] [place] Glucose Test strip (U) [Mass/Vol] Negative Normal Negative [facility] Comment on above: Order Comment: Speci men Type: URINE SPECIMENOrdering Facility: [facility] Address: [address] [place] [address] Performed By: #### 2 4356-8 ####[facility] LABIA [id number] [place] [address] [place] Hemoglobin Ql (U) Negative Normal Negative [facility] Comment on above: Order Comment: Speci men Type: URINE SPECIMENOrdering Facility: [facility] Address: [address] [place] [address] Performed By: #### 2 4356-8 ####[facility] LABCLIA [id number] [place] [address] [place] Ketones Ql (U) Negative Normal Negative [facility] Comment on above: Order Comment: Speci men Type: URINE SPECIMENOrdering Facility: [facility] Address: [address] [place] [address] Performed By: #### 2 4356-8 ####[facility] LABIA [id number] Leukocyte esterase Test strip Ql (U) 2+ Abnormal Negative [facility] Comment on above: Order Comment: Speci men Type: URINE SPECIMENOrdering Facility: [facility] Address: [address] [place] [address] Performed By: #### 2 4356-8 ####[facility] LABCLIA [id number] [place] [address] [place] Nitrite Ql (U) Negative Normal Negative [facility] Comment on above: Order Comment: Speci men Type: URINE SPECIMENOrdering Facility: [facility] Address: [address] [place] [address] Performed By: #### 2 4356-8 ####[facility] LABCLIA [id number] [place] [address] [place] pH (U) 6.0 [pH] Normal 5.0-8.0 [facility] Comment on above: Order Comment: Speci men Type: URINE SPECIMENOrdering Facility: [facility] Address: [address] [place] [address] Performed By: #### 2 4356-8 ####[facility] LABCLIA [id number] [place] [address] [place] Protein (U) [Mass/Vol] Negative Normal Negative [facility] Comment on above: Order Comment: Speci men Type: URINE SPECIMENOrdering Facility: [facility] Address: [address] [place] [address] Performed By: #### 2 4356-8 ####[facility] LABIA [id number] [place] [address] [place] RBC LM.HPF (Urine sed) [#/Area] 3-5 /HPF Abnormal 0-3 /HPF [facility] Comment on above: Order Comment: Speci men Type: URINE SPECIMENOrdering Facility: [facility] Address: [address] [place] [address] Performed By: #### 2 4356-8 ####[facility] [id number] [place] [address] [place] Specific gravity (U) [Rel density] 1.015 Normal 1.005-1.030 [facility] Comment on above: Order Comment: Speci men Type: URINE SPECIMENOrdering Facility: [facility] Address: [address] [place] [address] Performed By: #### 2 4356-8 ####[facility] [id number] [address] Urobilinogen Ql (U) 0.2 EU/dL Normal 0.2-1.0 EU/dL [facility] Comment on above: Order Comment: Speci men Type: URINE SPECIMENOrdering Facility: [facility] Address: [address] [place] [address] Performed By: #### 2 4356-8 ####[facility] [id number] [address] [place] WBC LM.HPF (Urine sed) [#/Area] 11-25 /HPF Abnormal 0-5 /HPF [facility] Comment on above: Order Comment: Speci men Type: URINE SPECIMENOrdering Facility: [facility] Address: [address] [place] [address] Performed By: #### 2 4356-8 ####[facility] LABIA [id number] [place] [id number] [place] Bacteria Ur Culton Bacteria identified Cx Nom (U) ORGANISM ID: 1 10,000 -<50,000 CFU/ml Normal urogenital hol[place] Normal [facility] Comment on above: Performed By: #### 6 30-4 #### [facility] CLIA [id number] [address] [place], [place] [address]K [id number] [place] [address] [place] CNOVon 04-25-2024 CNOV Office Visit (URUN) DOM AVILA ([id number]) 1955 F Date Time Provider Department 04/25/24 8:00 AM ORI LANDIN During your visit today, we recorded the following information about you: Pulse Blood pressure 60/minute 156/73 Lachelle Lemons 04/25/2024 9:28 AM Signed PVR 0 ml Ori Landin DO 04/25/2024 9:28 AM Signed 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), Colon polyp (2011), Controlled type 2 diabetes mellitus without complication, without long-term current use of insulin ([facility]) (10/22/2016), De Quervain's tenosynovitis, left (07/31/2019), Diabetic eye exam ([facility]) (01/16/2016), Ductal carcinoma in situ (DCIS) of [...] includes the following prescription(s): doxycycline, coenzyme q10, eoyvwj-snemqhms-phdiep e, lisinopril, estradiol, tamoxifen, pioglitazone, omeprazole, calcium citrate-vitamin d3, ezetimibe, ammonium lactate, clobetasol propionate, acetaminophen, nitroglycerin subli (more content not included)... Normal [facility] UA DIP, URINE (POC)on 2023 BILIRUBIN UA (POCT) Negative Negative [facility] CLARITY UA (POCT) Clear [facility] COLOR UA (POCT) Yellow [facility] GLUCOSE UA (POCT) Negative Negative mg/dL [facility] Hemoglobin Ql (U) Negative Negative [facility] Interpretation and review of laboratory results Abnormal [facility] KETONE UA (POCT) Negative Negative mg/dL [facility] LEUKOCYTES UA (POCT) Moderate Abnormal Negative [facility] NITRITE UA (POCT) Negative Negative [facility] PH UA (POCT) 6.0 4.5 - 8.0 [facility] Protein Ql (U) Negative Negative mg/dL [facility] SPECIFIC GRAVITY UA (POCT) 1.010 1.005 - 1.030 [facility] UROBILINOGEN UA (POCT) 0.2 Normal E.U./d L [facility] Location:[facility], [address] [place] [address] Dr. Anne [facility], [place], [place], [address] [place] [address] POINT OF CARE [facility] Urinalysis complete panel (U )Ordered By: Yennifer Veliz on 04-25-2024 Bilirubin Ql (U) Negative Negative [facility] Clarity (Unsp spec) Clear Clear [facility] Color (U) Yellow Yellow [facility] Epithelial cells LM.HPF (Urine sed) [#/Area] Few Abnormal None Seen /HPF [facility] Glucose Test strip (U) [Mass/Vol] Negative Negative [facility] Hemoglobin Ql (U) Negative Negative [facility] Interpretation and review of laboratory results Abnormal [facility] Ketones Ql (U) Negative Negative [facility] Leukocyte esterase Test strip Ql (U) 3+ Abnormal Negative [facility] Nitrite Ql (U) Negative Negative [facility] pH (U) 6.0 [pH] 5.0 - 8.0 [facility] Protein (U) [Mass/Vol] Negative Negative [facility] RBC LM.HPF (Urine sed) [#/Area] 0-3 /HPF 0-3 /HPF [facility] Specific gravity (U) [Rel density] 1.010 1.005 - 1.030 [facility] Urobilinogen Ql (U) 0.2 EU/dL 0.2-1.0 EU/dL Cl [facility] WBC LM.HPF (Urine sed) [#/Area] 11-25 /HPF Abnormal 0-5 /HPF [facility] Urinalysis complete panel (U )on 04-25-2024 Bilirubin Ql (U) Negative Normal Negative [facility] Comment on above: Order Comment: Speci men Type: URINE SPECIMENOrdering Facility: [facility] Address: [address] [place] [address] Performed By: #### 2 4356-8 ####[facility] LABCLIA [id number] [place] [address] [place] Clarity (Unsp spec) Clear Normal Clear [facility] Comment on above: Order Comment: Speci men Type: URINE SPECIMENOrdering Facility: [facility] Address: [address] [place] [address] Performed By: #### 2 4356-8 ####[facility] LABIA [id number] [place] [address] [place] Color (U) Yellow Normal Yellow [facility] Comment on above: Order Comment: Speci men Type: URINE SPECIMENOrdering Facility: [facility] Address: [address] [place] [address] Performed By: #### 2 4356-8 ####[facility] LABCLIA [id number] [address] [place] Epithelial cells LM.HPF (Urine sed) [#/Area] Few Normal [facility] Comment on above: Order Comment: Speci men Type: URINE SPECIMENOrdering Facility: [facility] Address: [address] [place] [address] Result Comment: Few Performed By: #### 2 4356-8 ####[facility] LABCLIA [id number] [address] [place] Glucose Test strip (U) [Mass/Vol] Negative Normal Negative [facility] Comment on above: Order Comment: Speci men Type: URINE SPECIMENOrdering Facility: [facility] Address: [address] [place] [address] Performed By: #### 2 4356-8 ####[facility] LABCLIA [id number] [place] [address] [place] Hemoglobin Ql (U) Negative Normal Negative [facility] Comment on above: Order Comment: Speci men Type: URINE SPECIMENOrdering Facility: [facility] Address: [address] [place] [address] Performed By: #### 2 4356-8 ####[facility] LABCLIA [id number] [address] STATES [facility] Ketones Ql (U) Negative Normal Negative [facility] Comment on above: Order Comment: Speci men Type: URINE SPECIMENOrdering Facility: [facility] Address: [address] [place] [address] Performed By: #### 2 4356-8 ####[facility] LABIA [id number] [address] Leukocyte esterase Test strip Ql (U) 3+ Abnormal Negative [facility] Comment on above: Order Comment: Speci men Type: URINE SPECIMENOrdering Facility: [facility] Address: [address] [place] [address] Performed By: #### 2 4356-8 ####[facility] LABIA [id number] [place] [address] [place] Nitrite Ql (U) Negative Normal Negative [facility] Comment on above: Order Comment: Speci men Type: URINE SPECIMENOrdering Facility: [facility] Address: [address] [place] [address] Performed By: #### 2 4356-8 ####[facility] LABIA [id number] [place] [address] [place] pH (U) 6.0 [pH] Normal 5.0-8.0 [facility] Comment on above: Order Comment: Speci men Type: URINE SPECIMENOrdering Facility: [facility] Address: [address] [place] [address] Performed By: #### 2 4356-8 ####[facility] LABIA [id number] [place] [address] [place] Protein (U) [Mass/Vol] Negative Normal Negative [facility] Comment on above: Order Comment: Speci men Type: URINE SPECIMENOrdering Facility: [facility] Address: [address] [place] [address] Performed By: #### 2 4356-8 ####[facility] [id number] [address] [place] [facility] RBC LM.HPF (Urine sed) [#/Area] 0-3 /HPF Normal 0-3 /HPF [facility] Comment on above: Order Comment: Speci men Type: URINE SPECIMENOrdering Facility: [facility] Address: [address] [place] [address] Performed By: #### 2 4356-8 ####[facility] [id number] [address] [place] [facility] Specific gravity (U) [Rel density] 1.010 Normal 1.005-1.030 [facility] Comment on above: Order Comment: Speci men Type: URINE SPECIMENOrdering Facility: [facility] Address: [address] [place] [address] Performed By: #### 2 4356-8 ####[facility] [id number] [address] Urobilinogen Ql (U) 0.2 EU/dL Normal 0.2-1.0 EU/dL [facility] Comment on above: Order Comment: Speci men Type: URINE SPECIMENOrdering Facility: [facility] Address: [address] [place] [address] Performed By: #### 2 4356-8 ####[facility] [id number] [address] [place] WBC LM.HPF (Urine sed) [#/Area] 11-25 /HPF Abnormal 0-5 /HPF [facility] Comment on above: Order Comment: Speci men Type: URINE SPECIMENOrdering Facility: [facility] Address: [address] [place] [address] Performed By: #### 2 4356-8 ####[facility] [id number] [place] [address] [place] Cardiology Visit Reporton Cardiology Visit Report [facility] [address] [place] [address] OFFICE VISIT Date of Service: 04/21/24 MR#: [id number] Acct: [id number] Name: DOM AVILA Rep #: [id number] : 1955 Provider: Dr. 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 Homecare Required: No Accompanied by: None Is patient in pain?: No Allergies lovastatin Allergy (Intermediate, Verified 04/21/24 13:37) Other rosuvastatin (From Crestor) Allergy (Intermediate, Verified 04/21/24 13:37) Other ticagrelor (From Brilinta) Allergy (Intermediate, Verified 04/21/24 13:37) Shortness of breath atorvastatin Allergy (Unknown, Verified 04/21/24 13:37) myalgia hydrocodone Allergy (Verified 04/21/24 13:37) Hives cephalexin monohydrate (From Picwing) Adverse Reaction (Verified 04/21/24 13:37) Other pravastatin [...] mg PO DAILY 11/30/22 04/21/24 History release [id number]-rnscum e See Rx Instructions PO .COMPLEX 03/04/23 [...] pressure) dependence (more content not included)... Normal [facility] ALBUMIN/CREATININE RATIO, UR INEon 04-17-2024 Albumin DL <= 20 mg/L (U) [Mass/Vol] mg/L mg/L [facility] Albumin/Creatinine (U) [Mass ratio] mg/g NINF - 30 mg/g [facility] Comment on above: Adult Male [...] [Mass/Vol] 100.9 mg/dL 20.0 - 300.0 mg/dL [facility] CBC W Auto Differential pane l (Bld)on 04-17-2024 Basophils (Bld) [#/Vol] [facility] Basophils/100 WBC (Bld) 0.4 % [facility] Differential cell count method Nom (Bld) Auto [facility] Eosinophils (Bld) [#/Vol] 0.07 10*3/uL [facility] Eosinophils/100 WBC (Bld) 1.3 % [facility] Erythrocyte distribution width (RBC) [Ratio] 14.2 % 11.5 - 15.0 % [facility] Hematocrit (Bld) [Volume fraction] 38.3 % 36.0 - 46.0 % [facility] Hemoglobin (Bld) [Mass/Vol] 12.4 g/dL 11.5 - 15.5 g/dL [facility] Immature granulocytes (Bld) [#/Vol] [facility] Immature granulocytes/100 WBC (Bld) 0.2 % [facility] Lymphocytes (Bld) [#/Vol] 1.82 10*3/uL [facility] Lymphocytes/100 WBC (Bld) 34.9 % [facility] MCH (RBC) [Entitic mass] 30.7 pg 26.0 - 34.0 pg [facility] MCHC (RBC) [Mass/Vol] 32.4 g/dL 30.5 - 36.0 g/dL [facility] MCV (RBC) [Entitic vol] 94.8 fL 80.0 - 100.0 fL [facility] Monocytes (Bld) [#/Vol] 0.47 10*3/uL [facility] Monocytes/100 WBC (Bld) 9.0 % [facility] Neutrophils (Bld) [#/Vol] 2.83 10*3/uL [facility] Neutrophils/100 WBC (Bld) 54.2 % [facility] Nucleated RBC (Bld) [#/Vol] [facility] Nucleated RBC/100 WBC (Bld) [Ratio] 0.0 % /100 WBC [facility] Platelet mean volume (Bld) [Entitic vol] 9.9 fL 9.0 - 12.7 fL [facility] Platelets (Bld) [#/Vol] 204 10*3/uL [facility] RBC (Bld) [#/Vol] 4.04 10*6/uL 3.90 - 5.2 0 m/uL [facility] WBC (Bld) [#/Vol] 5.22 10*3/uL [facility] Comprehensive metabolic 2000 panelon 04-17-2024 Albumin [Mass/Vol] 3.8 g/dL Low 3.9 - 4.9 g/dL Cl [facility] ALP [Catalytic activity/Vol] 37 U/L 34 - 123 U/L [facility] ALT [Catalytic activity/Vol] 11 U/L 7 - 38 U/L [facility] Anion gap [Moles/Vol] 11 mmol/L 8 - 15 mmol/L [facility] AST [Catalytic activity/Vol] 20 U/L 13 - 35 U/L [facility] Bilirubin [Mass/Vol] 0.2 mg/dL 0.2 - 1 .3 mg/dL [facility] Calcium [Mass/Vol] 8.9 mg/dL 8.5 - 10. 2 mg/dL [facility] Chloride [Moles/Vol] 105 mmol/L 98 - 10 7 mmol/L [facility] CO2 [Moles/Vol] 26 mmol/L 22 - 30 mmol/L [facility] Creatinine [Mass/Vol] 0.78 mg/dL 0.58 - 0.96 mg/dL [facility] GFR/1.73 sq M.predicted among non-blacks MDRD (S/P/Bld) [Vol rate/Area] 84 mL/min/{1.73_m2} - PINF [facility] Comment on above: Estimated Glomerular [...] 119 mg/dL High 74 - 99 mg/dL [facility] Comment on above: The [place] Diabete s Association (ADA) provides guidance for [...] Standards of Medical Care in Diabetes 2016, [place] Diabetes Association. Diabetes Care. 2016.39(Suppl 1). Potassium [Moles/Vol] 4.1 mmol/L 3.7 - 5.1 mmol/L [facility] Protein [Mass/Vol] 6.3 g/dL 6.3 - 8.0 g/dL [facility] Sodium [Moles/Vol] 142 mmol/L 136 - 144 mmol/L [facility] Urea nitrogen [Mass/Vol] 11 mg/dL 7 - 21 mg/dL [facility] HbA1c (Bld)on 04-17-2024 Average glucose Estimated from glycated hemoglobin (Bld) [Mass/Vol] 166 mg/dL [facility] Comment on above: eAG: (Estimated aver age glucose) is a calculated value from HgbA1c and is aircraft sales representative of the average blood glucose level in the last 2-3 month period. HbA1c (Bld) [Mass fraction] 7.4 % High 4.3 - 5.6 % [facility] Comment on above: [place] Diabetes As sociation guidelines indicate that patients with HgbA1c in the range 5.7-6.4% are at increased risk for development of diabetes, and intervention by lifestyle modification may be beneficial. HgbA1c greater or equal to 6.5% is considered diagnostic of diabetes. Interpretation and review of laboratory results Abnormal [facility] LIPID PANEL, NONFASTINGon Cholesterol [Mass/Vol] 153 mg/dL NINF - 200 mg/dL [facility] Comment on above: <200 mg/dL, Desirabl e 200-239 mg/dL, Borderline high >239 mg/dL, High HDL Cholesterol, Nonfasting 36 mg/dL Low 39 - PINF mg/dL [facility] Comment on above: 40-59 mg/dL, Accepta ble >59 mg/dL, High: Negative risk factor for coronary heart disease <40 mg/dL, Low: Positive risk factor for coronary heart disease LDL Cholesterol, Nonfasting 91 mg/dL NINF - 100 mg/dL [facility] Comment on above: <100 mg/dL, Optimal 100-129 mg/dL, Near optimal/above optimal 130-159 mg/dL, Borderline high 160-189 mg/dL, High >189 mg/dL, Very high Secondary prevention optimal LDL Cholesterol levels are recommended to be < 70 mg/dL LDL/HDL Ratio, Nonfasting 2.53 mg/dL NINF - 2.54 mg/dL [facility] Comment on above: Reference: 1. National Cholesterol Education Program ATP III Guideline At-A-Glance Quick Desk Reference: National Heart, Lung, and Blood [place]. National Institutes of Health. 2001: NIH Publication No. 01-3305. 2. An International Atherosclerosis Society position paper: global recommendations for the management of dyslipidemia: executive summary, Atherosclerosis. 2014: 232(2):410-413. Non HDL Cholesterol, Nonfasting 117 mg/dL NINF - 130 mg/dL [facility] Comment on above: <130 mg/dL, Optimal 130-159 mg/dL, Near optimal/above optimal 160-189 mg/dL, Borderline high 190-219 mg/dL, High >219 mg/dL, Very high Secondary prevention optimal non HDL Cholesterol levels are recommended to be <100 mg/dL Total Chol/HDL Ratio, Nonfasting 4.25 mg/dL NINF - 5.10 mg/dL [facility] Triglycerides, Nonfasting 132 mg/dL NINF - 150 mg/dL [facility] Comment on above: <150 mg/dL, Normal 150-199 mg/dL, Borderline high 200-499 mg/dL, High >499 mg/dL, Very high VLDL Cholesterol, Nonfasting 26 mg/dL NINF - 30 mg/dL [facility] No Panel Informationon 04-17 Interpretation and review of laboratory results Abnormal [facility] Urinalysis complete panel (U )on 04-17-2024 Bacteria LM.HPF (Urine sed) [#/Area] Negative Negative /HPF [facility] Bilirubin Ql (U) Negative Negative [facility] Clarity (Unsp spec) Cloudy Abnormal Clear [facility] Color (U) Yellow Yellow [facility] Epithelial cells LM.HPF (Urine sed) [#/Area] Moderate /HPF [facility] Glucose Test strip (U) [Mass/Vol] Negative Negative [facility] Hemoglobin Ql (U) Negative Negative [facility] Hyaline casts (Urine sed) [#/Area] 0 /[LPF] 0 /LPF [facility] Interpretation and review of laboratory results Abnormal [facility] Ketones Ql (U) Negative Negative [facility] Leukocyte esterase Test strip Ql (U) 2+ Abnormal Negative [facility] Nitrite Ql (U) Negative Negative [facility] pH (U) 6.0 [pH] NINF - 8.5 [facility] Protein (U) [Mass/Vol] Negative Negative [facility] RBC LM.HPF (Urine sed) [#/Area] 11-20 /HPF Abnormal 0-2 /HPF [facility] Specific gravity (U) [Rel density] 1.017 1.005 - 1.030 [facility] Urobilinogen Ql (U) 0.2 EU/dL 0.2-1.0 EU/dL [facility] WBC LM.HPF (Urine sed) [#/Area] 0-5 /HPF 0-5 /HPF [facility] Result rechecked This test was developed and its performance characteristics determined by [facility] [place] ([facility]). It has not been cleared or approved by the FDA. [facility] is regulated under CLIA as qualified to perform high-complexity testing. This test is used for clinical purposes. It should not be regarded as investigational or for research. [facility] COVID & INFLUENZA A/B & RSV NAAT, ROUTINEon 03-23-2024 FLUAV RNA MICHAEL+probe Ql (Unsp spec) Not detected Not Detected [facility] FLUBV RNA MICHAEL+probe Ql (Unsp spec) Not detected Not Detected [facility] Interpretation and review of laboratory results Normal [facility] RSV A RNA MICHAEL+probe Ql (Unsp spec) Not detected Not Detected [facility] SARS-CoV-2 (COVID-19) RNA MICHAEL+probe Ql (Resp) Not detected See comment [facility] Comment on above: The method used is R T-PCR or an equivalent NAAT method. Reference Range (the expected result in uninfected individuals): Not detected For upper respirator y tract samples, this test has been authorized by FDA under Emergenecy Use Authorization (EUA). For lower respiratory tract samples, this test was developed and its performance characteristics determined by [facility] ([facility]). It has not been cleared or approved by the FDA. [facility] is regulated under CLIA as qualified to perform high-complexity testing. This test is used for clinical purposes. It should not be regarded as investigational or for research. Test performed by [facility], [facility] [place], [address], [place], [place] [address]. [facility] STREP A MOLECULAR (POC)on Procedural Control Valid [facility] Strep A (POCT) Negative Negative [facility] DBT Breast - bilateral scree rajigon 03-09-2024 IMPRESSION: BENIGN FINDING There is no mammographic evidence of malignancy. A 1 year screening mammogram is recommended. Paresh grimaldo/christian:03/09/2024 21:41:09 Systems Planner(s): Debby Lin RT(R)(M), [facility] letter sent: Normal over 40 Mammogram BI-RADS: [...] Health, Family Medicine, and Medical/Surgical Oncology, the [facility] has carefully reviewed the data [...] their providers when to stop screening mammograms. Process Consultant: Christian Transcribe Date/Time: Mar 09 2024 8:22A Dictated by: PARESH HWANG MD This examination was interpreted and the report reviewed and electronically signed by: PARESH HWANG MD on Mar 09 2024 9:41PM [facility] DIVISION OF RADIOLOGY * * *Final Report* * * DATE OF EXAM: Mar 09 2024 8:44AM WRW [id number] - GUI[facility]ER[facility] SCREENING W ANGELA / PROCEDURE REASON: multiple diagnoses * * * * Physician Interpretation * * * * RESULT: #[id number] - GUILLERMINA SCREENING W ANGELA BILATERAL DIGITAL [...] mammogram, 02/23/2022 mammogram, and 02/21/2021 mammogram - [facility]. There are scattered areas of fibroglandular density. There are benign post operative findings in the left breast. No significant masses, calcifications, or other findings are seen in either breast. There has been no significant interval change. DIVISION OF RADIOLOGY Provider, [facility] - 03/09/2024 * * *Final Report* * * DATE OF EXAM: Mar 09 2024 8:44AM WRW 0582 - [facility] SCREENING W ANGELA / PROCEDURE REASON: multiple diagnoses * * * * Physician Interpretation * * * * RESULT: #[id number] - [facility] SCREENING W ANGELA BILATERAL DIGITAL SCREENING [...] mammogram, 02/23/2022 mammogram, and 02/21/2021 mammogram - [facility]. There are scattered areas of fibroglandular density. There are benign post operative findings in the left breast. No significant masses, calcifications, or other findings are seen in either breast. There has been no significant interval change. IMPRESSION IMPRESSION: BENIGN FINDING There is no mammographic evidence of malignancy. A 1 year screening mammogram is recommended. Paresh grimaldo/christian:03/09/2024 21:41:09 Systems Planner(s): Debby Lin RT(R)(M), [facility] letter sent: Normal over 40 Mammogram BI-RADS: [...] Health, Family Medicine, and Medical/Surgical Oncology, the [facility] has carefully reviewed the data [...] their providers when to stop screening mammograms. Process Consultant: Christian Transcribe Date/Time: Mar 09 2024 8:22A Dictated by: PARESH HWANG MD This examination was interpreted and the report reviewed and electronically signed by: PARESH HWANG MD on Mar 09 2024 9:41PM EST [facility] Radiology Study observation (narrative) [facility] DBT Breast - bilateral scree ningOrdered By: [facility] Provider on 03-09-2024 [facility] Microscopic observation Gram stain Nom (Vag fld)on 01-19-2024 Bacterial Vaginosis BACTERIAL VAGINOSIS RESULT: Stain results consistent with normal vaginal holland. [facility] Bacterial Vaginosis No Yeast observed [facility] Bacterial Vaginosis No Polymorphonuclear Leukocytes [facility] UA DIP, URINE (POC)on 2023 BILIRUBIN UA (POCT) Negative Negative [facility] CLARITY UA (POCT) Clear [facility] COLOR UA (POCT) Yellow [facility] GLUCOSE UA (POCT) Negative Negative mg/dL [facility] Hemoglobin Ql (U) Negative Negative [facility] KETONE UA (POCT) Negative Negative mg/dL [facility] LEUKOC[facility] UA (POCT) Small Abnormal Negative [facility] NITRITE UA (POCT) Negative Negative [facility] PH UA (POCT) 5.5 4.5 - 8.0 [facility] Protein Ql (U) Negative Negative mg/dL [facility] SPECIFIC GRAVITY UA (POCT) 1.010 1.005 - 1.030 [facility] UROBILINOGEN UA (POCT) 0.2 E.U./dL Normal E.U./ dL [facility] MRCP Abdomen without Contras ton 01-03-2024 MRCP Abdomen without Contrast [facility] [address] [place] [address] MRCP Abdomen without Contrast MR#: [id number] Acct: [id number] Name: DOM AVILA Rep #: [id number] : 1955 F 68 From: Tony Condon MD PCP: Dr. Clifton Hung MD Status: DEP CLI Study: MRCP Abdomen without Contrast Date of Exam: Exam# [id number] Ordering Dr: Carson Alcantar DO ADDENDUM by Dr. Tony Condon MD on 01/27/24 at 1059 ====== ADDENDUM ====== [id number] Report correction: Pancreas resection should state: Pancreas [...] Hung MD; Carson Alcantar DO * Signed [id number] EXAM: MR ABDOMEN WITHOUT INTRAVENOUS CONTRAST, MRCP [...] Dr. Clifton Hung MD; Carson Alcantar DO Process Consultant: Signed Normal [facility] Emergency Department Summary on 12-28-2023 Emergency Department Summary [facility] Medical Records Department [address] [place] [address] Emergency Department Summary 12/28/23 MR#: [id number] Acct: [id number] Name: DOM AVILA Rep #: [id number] : 1955 68 From: Victor M Hernandez [...] illicit substances or excessive stimulant use PFSH [facility] Medical History Anxiety Arthritis Atherosclerotic heart disease of [place] coronary artery without angina pectoris Breast cancer, [...] PO DAILY 11/30/22 [History Last Taken Unknown] ovinpm-qcqybalx-uufqzo e 36,000-114,000-180,000 unit capsule,delay rel (Creon) See [...] History Mother Cancer pancreatic cancer Father , [place] age 20's (premature CAD), 3 vessel CABG (more content not included)... Normal [facility] Chest 1 View (Portable)on Chest 1 View (Portable) [facility] [address] [place] [address] Chest 1 View (Portable) MR#: [id number] Acct: [id number] Name: ODM AVILA Rep #: [id number] : 1955 F 68 From: Reji xiong MD PCP: Dr. Clifton Hung MD Status: REG ER Study: Chest 1 View (Portable) Date of Exam: 12/22/23 Exam# [id number] Ordering Dr: Caro Pedro MD [id number] STUDY: X-RAY CHEST REASON FOR EXAM: Female, [...] 14:33 EST Reading Location ID and State: [facility] / [place] , Service support , CC: Dr. Clifton Hung MD; Dr. Caro Pedro MD Process Consultant: Signed Normal [facility] Emergency Department Summary on 12-22-2023 Emergency Department Summary [facility] Medical Records Department [address] [place] [address] Emergency Department Summary 12/22/23 MR#: [id number] Acct: [id number] Name: DOM AVILA Rep #: [id number] : 1955 68 From: Caro Pedro MD [...] mild diarrhea but no nausea or vomiting. [facility] Medical History Anxiety Arthritis Atherosclerotic heart disease of [place] coronary artery without angina pectoris Breast cancer, [...] PO DAILY 11/30/22 [History Last Taken Unknown] mhcags-ppnjckmf-pswsts e 36,000-114,000-180,000 unit capsule,delay rel (Creon) See [...] History Mother Cancer pancreatic cancer Father , [place] age 20's (premature CAD), 3 vessel CABG, hyperlipidemia, CHf Myocardial infarction CAD (coronary artery disease) Brother Cancer lung cancer Surgical History Ductal carcinoma in situ (DCIS) of left breast History of bunionectomy of left great toe History of cardiac catheterization ( 10/12/18) History of carpal tunne (more content not included)... Normal [facility] Laboratory - Microbiology an d Antimicrobial susceptibilityOrdered By: Caro Pedro on 12-22-2023 SARS-CoV-2 (COVID-19) RNA MICHAEL+probe Ql (Unsp spec) Influenzae A [facility] M100.678on 12-22-2023 M100.678 RESULTS CALLED TO Vel TAYLOR 12/22/23 1455 [place] Le[place]. REPORT READ BACK BY SANDRA. COV + FLU + RSV PCR Copy of report sent to Infection Control Printer [id number] 12/22/23 9895 RADHA. COV + FLU + RSV PCR Normal Reference Range = Negative COV + FLU + RSV PCR GeneXpert Instrument, PCR method SARS-CoV-2 (COVID 19) Negative INFLUENZA A Positive A INFLUENZA A Positive A RSV PCR Negative FLUA Normal [facility] Comment on above: Performed By: #### M 100.678 ####[facility] [address] [place], [place], [address] Carbohydrate AG 19-9on 12-10 CA 19-9 38 U/mL High 0-35 [facility] Comment on above: Result Comment: [employer] Electrochemiluminescence Immunoassay (ECLIA) Values obtained with different assay methods or kits cannot be used interchangeably. Results cannot be interpreted as absolute evidence of the presence or absence of malignant disease. Performed at: [address] [id number] Electronic Health Records Specialist: Timoteo Berumen PhD, Phone: [phone] Performed By: #### L 3100.5020, L501.2450, L501.2400 ####[facility] [address] [place], [address] Amylaseon 12-08-2023 SIMA 59 U/L Normal - [facility] Comment on above: Performed By: #### L 3100.5020, L501.2450, L501.2400 ####[facility] [address] [place], [place], [address] Basophil percentageOrdered B y: Carson Alcantar on 12-08-2023 Amylase [Catalytic activity/Vol] 59 U/L -115 [facility] Laboratory - Chemistry and C hemistry - challengeOrdered By: Carson Alcantar on 12-08-2023 Lipase [Catalytic activity/Vol] 124 U/L [facility] Comment on above: Please note:LIPASE r evised reference range effective 23. New Lipase methodology. Expected to produce lower values than the previous assay method. NEW Reference Range: 13 - 75 U/L Lipaseon 12-08-2023 Lipase [Catalytic activity/Vol] 124 U/L High [facility] Comment on above: Result Comment: Rom mendosa note: LIPASE revised reference range effective 23. New Lipase methodology. Expected to produce lower values than the previous assay method. NEW Reference Range: 13 - 75 U/L Performed By: #### L 3100.5020, L501.2450, L501.2400 ####[facility] [address] [place], [place], [address] No Panel InformationOrdered By: Carson Alcantar on 12-08-2023 CA 19-9 Antigen 38 U/mL 0-35 [facility] Comment on above: [facility] El ectrochemiluminescence Immunoassay(ECLIA)Values obtained with different assay methods or kits cannotbe used interchangeably. Results cannot be interpreted asabsolute evidence of the presence or absence of malignantdisease.Performed at: [facility] [facility] [id number] Director: Timoteo Berumen PhD, Phone: [phone] Gastroenterology Visit Repor ton 12-06-2023 Gastroenterology Visit Report [facility] Gastroenterology [address] [facility] [place] [address] OFFICE VISIT Date of Service: 12/06/23 MR#: [id number] Acct: [id number] Name: DOM AVILA Rep #: [id number] : 1955 Provider: Carson Alcantar DO Age/Sex: 68/F Location: [facility] Status: Signed Intake Vital Signs 04/01/23 13:53 [...] [place]) Anxiety Arthritis Atherosclerotic heart disease of [place] coronary artery without angina pectoris Breast cancer, [...] History Mother Cancer pancreatic cancer Father , [place] age 20's (premature CAD), 3 vessel CABG, [...] well. Exam (more content not included)... Normal [facility] Influenza virus A and B and SARS-CoV-2 (COVID-19) Ag panel - Upper respiratory specimOrdered By: Ron Alan on 09-11-2023 SARS-CoV-2 & FLU Antigen (Rapid) SARS-CoV-2 (COVID 19) [facility] UA DIP, URINE (POC)on 2022 BILIRUBIN UA (POCT) Negative Negative [facility] CLARITY UA (POCT) Cloudy [facility] COLOR UA (POCT) Yellow [facility] GLUCOSE UA (POCT) Negative Negative mg/dL [facility] Hemoglobin Ql (U) Trace-intact Abnormal Negative [facility] KETONE UA (POCT) Negative Negative [facility] LEUKOCYTES UA (POCT) Moderate Abnormal Negative [facility] NITRITE UA (POCT) Negative Negative [facility] PH UA (POCT) 5.5 4.5 - 8.0 [facility] Protein Ql (U) Negative Negative mg/dL [facility] SPECIFIC GRAVITY UA (POCT) 1.015 1.005 - 1.030 [facility] UROBILINOGEN UA (POCT) 0.2 E.U./dL Normal E.U./ dL [facility] GUILLERMINA SCREENINGon 02-24-2023 [facility] CORONAVIRUS PCR - [facility] 01-12-2023 SARS-CoV-2 (COVID-19) RNA MICHAEL+probe Ql (Unsp spec) Negative Normal NORMAL: NEGATIVE [facility] Comment on above: Performed By: #### 2 [id number] #### [facility],[address] [place] [address] SEND TO IC? NO Normal [facility] Comment on above: Result Comment: RESU LTS FAXED TO INFECTION CONTROL. SARS-CoV-2 THIS TEST IS BEING USED UNDER THE FDA EUA PROCEDURE. THIS ASSAY HAS BEEN VALIDATED IN THE [facility] FOR USE WITH NASOPHARYNGEAL SPECIMENS IN [facility])[3]. INTERPRETIVE DATA LABORATORY TEST RESULTS SHOULD ALWAYS [...] PUBLIC HEALTH AUTHORITIES. Performed By: #### 2 [id number] #### [facility],[address] [id number] Glucose Glucometer (BldC) [M ass/Vol]Ordered By: Carson Alcantar on 12-01-2022 Glucose [Mass/Vol] 192 mg/dL 74-106 [facility] Comment on above: MANAGEMENT OF PATIEN T CARE PER NURSING PROTOCOL CT ABD/PEL W IVCONon 023 [facility] No Panel InformationOrdered By: Karin Coles on 11-23-2022 Stool Neutral Fats Increased . [facility] Comment on above: Normal (<60 Droplets /HPF) Stool Pancreatic Elastase > 500 >200 [facility] Comment on above: Result Units: ug [address]ni st./g Severe Pancreatic Insufficiency: <100 Moderate Pancreatic Insufficiency: 100 - 200 Normal: >200Performed at: - [facility] [address] [id number] Director: Benson Osei MD, Phone: [phone] Qualitative fecal fat or lip idsOrdered By: Karin Coles on 11-23-2022 Fat Ql (Stl) Normal . [facility] Comment on above: Normal (<100 Droplet s/HPF)Performed at: - [facility] [address] [id number] Director: Timoteo Berumen PhD, Phone: [phone] Absolute lymphocyte countOrd ered By: Karin Coles on 11-19-2022 Lymphocytes Auto (Unsp spec) [#/Vol] 1.59 10*3/uL 0.83-4.51 [facility] Basophil percentageOrdered B y: Karin Coles on 11-19-2022 Amylase [Catalytic activity/Vol] 58 U/L 25-115 [facility] Basophils/100 WBC (Bld) 0.5 % 0-1 [facility] Bilirubin [Mass/Vol] 0.30 mg/dL 0.20-1.00 [facility] Comment on above: For patients on eltr ombopag therapy, use of [place] TBIL is not recommended. Chloride [Moles/Vol] 103 mmol/L 98-107 [facility] Eosinophils/100 WBC (Bld) 1.6 % 0-5 [facility] Glucose [Mass/Vol] 193 mg/dL 74-106 [facility] Comment on above: Fasting Glucose resu lt greater than or equal to 126 mg/dL suggests DIABETES MELLITUS per A.D.A. criteria. LDH [Catalytic activity/Vol] 169 U/L 84-246 [facility] Neutrophils (Bld) [#/Vol] 3.5 10*3/uL 2.0-7.7 [facility] Neutrophils/100 WBC (Bld) 61.4 % 47-70 [facility] Potassium [Moles/Vol] 4.1 mmol/L 3.5-5.1 [facility] Protein [Mass/Vol] 6.9 g/dL 6.4-8.2 [facility] Sodium [Moles/Vol] 139 mmol/L 136-145 [facility] WBC (Bld) [#/Vol] 5.7 10*3/uL 4.4-11.0 [facility] Blood erythrocytes count (nu mber/volume)Ordered By: Karin Coles on 11-19-2022 RBC (Bld) [#/Vol] 3.99 10*6/uL 4.2-5.4 [facility] Blood hemoglobin measurement (mass/volume)Ordered By: Karin Coles on 11-19-2022 Hemoglobin (Bld) [Mass/Vol] 12.5 g/dL 12.0-15.0 [facility] Blood lymphocytes/100 leukoc ytesOrdered By: Karin Coles on 11-19-2022 Lymphocytes/100 WBC (Bld) 27.9 % 19-41 [facility] Blood monocytes/100 leukocyt esOrdered By: Karin Coles on 11-19-2022 Monocytes/100 WBC (Bld) 8.2 % 0-10 [facility] Blood platelet mean volumeOr dered By: Karin Coles on 11-19-2022 Platelet mean volume (Bld) [Entitic vol] 9.7 fL 6.2-12.0 [facility] Determination of erythrocyte mean corpuscular volume (MCV)Ordered By: Karin Coles on 11-19-2022 MCV (RBC) [Entitic vol] 94.5 fL 81-99 [facility] Erythrocyte sedimentation ra teOrdered By: Karin Coles on 11-19-2022 ESR (Bld) [Velocity] 7 mm/h 0-30 [facility] Hematocrit Auto (Bld) [Volum e fraction]Ordered By: Karin Coles on 11-19-2022 Hematocrit (Bld) [Volume fraction] 37.7 % 37-47 [facility] Laboratory - Chemistry and C hemistry - challengeOrdered By: Karin Coles on 11-19-2022 ALP [Catalytic activity/Vol] 40 U/L 45-117 [facility] ALT [Catalytic activity/Vol] 21 U/L 13-56 [facility] CO2 [Moles/Vol] 29.0 mmol/L 21.0-32.0 [facility] Globulin (S) [Mass/Vol] 3.5 g/dL 2.2-4.2 [facility] Lipase [Catalytic activity/Vol] 490 U/L 73-393 [facility] Urea nitrogen/Creatinine [Mass ratio] 19.2 mg/mg 10-20 [facility] Laboratory - Hematology and Cell countsOrdered By: Karin Coles on 11-19-2022 Erythrocyte distribution width (RBC) [Entitic vol] 46.2 fL 35.1-43.9 [facility] Erythrocyte distribution width (RBC) [Ratio] 13.4 % 11.6-14.6 [facility] Immature granulocytes/100 WBC (Bld) 0.400 % 0.0-0.9 [facility] Comment on above: IG% - Immature Granu locytes (promyelocytes, myelocytes and metamyelocytes) > 1% indicates that a LEFT SHIFT is Present. MCH (RBC) [Entitic mass] 31.3 pg 27.0-32.0 [facility] Nucleated RBC/100 WBC (Bld) [Ratio] 0 % 0-5 [facility] MCHC Auto (RBC) [Mass/Vol]Or dered By: Karin Coles on 11-19-2022 MCHC (RBC) [Mass/Vol] 33.2 g/dL 32-36 [facility] No Panel InformationOrdered By: Karin Coles on 11-19-2022 CA 19-9 Antigen 35 U/mL 0-35 [facility] Comment on above: [facility] El ectrochemiluminescence Immunoassay(ECLIA)Values obtained with different assay methods or kits cannotbe used interchangeably. Results cannot be interpreted asabsolute evidence of the presence or absence of malignantdisease.Performed at: [facility] [id number] Director: Timoteo Berumen PhD, Phone: [phone] CA 19-9 Antigen Serial Monitoring Not Reportable [facility] Endomysial IgA Antibody Negative Negative [facility] Estimated GFR (MDRD) Amer 95 mL/min >60 [facility] Comment on above: GFR Calc Estimated GFR (MDRD) Non-Af Amer 79 mL/min >60 [facility] Comment on above: Non- GFR Calc Platelets bldOrdered By: Jacquelyn Coles on 11-19-2022 Platelets (Bld) [#/Vol] 218 10*3/uL 150-450 [facility] Serum IgA measurement (units /volume)Ordered By: Karin Coles on 11-19-2022 IgA Qn (S) 160 mg/dL 87-352 [facility] Serum or plasma C reactive p rotein measurement (mass/volume)Ordered By: Karin Coles on 11-19-2022 CRP [Mass/Vol] 8.32 mg/L 0.0-3.0 [facility] Comment on above: C-Reactive Protein ( CRP) provides useful information for thediagnosis, therapy and monitoring of inflammatory processesand associated diseases. For the evaluation of Relative Riskfor Cardiovascular Disease, a High Sensitivity CRP (HSCRP)should be ordered. Serum or plasma albumin lucio urement (mass/volume)Ordered By: Karin Coles on 11-19-2022 Albumin [Mass/Vol] 3.4 g/dL 3.2-5.0 [facility] Serum or plasma albumin/glob ulin mass ratioOrdered By: Karin Coles on 11-19-2022 Albumin/Globulin [Mass ratio] 1.0 {ratio} 0.9-2.4 [facility] Serum or plasma calcium lucio urement (mass/volume)Ordered By: Karin Coles on 11-19-2022 Calcium [Mass/Vol] 8.9 mg/dL 8.5-10.1 [facility] Serum or plasma creatinine m easurement (mass/volume)Ordered By: Karin Coles on 11-19-2022 Creatinine [Mass/Vol] 0.78 mg/dL 0.55-1.02 [facility] Comment on above: The validity of the calculated GFR & GFRAA in patients over 70 years has not been determined. Clinical correlation is essential. Serum or plasma urea nitroge n measurement (mass/volume)Ordered By: Karin Coles on 11-19-2022 Urea nitrogen [Mass/Vol] 15 mg/dL 7-18 [facility] Serum tissue transglutaminas e IgA antibody assay (units/volume)Ordered By: Karin Coles on 11-19-2022 tTG IgA Qn (S) <2 U/mL 0-3 [facility] Comment on above: Negative 0 - 3 Weak Positive 4 - 10 Positive >10 Tissue Transglutaminase (tTG) has been identified as the endomysial antigen. Studies have demonstr- ated that endomysial IgA antibodies have over 99% specificity for gluten sensitive enteropathy. Thin prep Papanicolaou smear with manual screeningOrdered By: Karin Coles on 11-19-2022 Thin prep Papanicolaou smear with manual screening 13 U/L 15-37 [facility] Thin prep Papanicolaou smear with manual screening 7 5-15 [facility] STREP A MOLECULAR (POC)on Procedural Control Valid [facility] Strep A (POCT) Negative Negative [facility] Influenza virus A and B RNA and SARS-CoV-2 (COVID-19) N gene panel MICHAEL+probe (Resp)on 12-27-2022 FLUAV RNA MICHAEL+probe Ql (Unsp spec) Negative Negative for Influenza A by RT-PCR [facility] FLUBV RNA MICHAEL+probe Ql (Unsp spec) Negative Negative for Influenza B by RT-PCR [facility] SARS-CoV-2 (COVID-19) RNA MICHAEL+probe Ql (Resp) SARS-CoV-2 (Agent of COVID-19) Detected by RT-PCR or equivalent method. Abnormal Not Detected [facility] GUILLERMINA DIAG W ANGELA LTon 022 [facility] US ABD RT UPPER QUADRANTon 1 11-09-2021 [facility] CREATININE BLDon 08-28-2022 Creatinine [Mass/Vol] 0.82 mg/dL 0.58 - 0.96 mg/dL [facility] Estimated Glomerular Filtration Rate 79 mL/min/1.73m >=60 mL/min/1.73m [facility] BACTERIAL VAGINOSIS AMPLIFIC ATIONon 07-09-2022 Lactobacillus crispatus+gasseri+deyanira enii + Gardnerella vaginalis + Atopobium vaginae rRNA MICHAEL+probe Ql (Vag fld) Negative Negative for bacterial vaginosis [facility] CHINO / TRICHOMONAS AMPLIF ICATIONon 07-09-2022 C. glabrata RNA MICHAEL+probe Ql (Vag fld) Negative Negative for Chino glabrata [facility] Chino albicans, C. dubliniensis, C. parapsilosis, and C. tropicalis RNA MICHALE+probe Ql (Vag fld) Negative Negative for [place] species [facility] T. vaginalis DNA MICHAEL+probe Ql (Unsp spec) Negative Negative for Trichomonas vaginalis by amplification [facility] UA DIP, URINE (POC)on 2021 BILIRUBIN UA (POCT) Negative Negative [facility] CLARITY UA (POCT) Clear [facility] COLOR UA (POCT) Yellow [facility] GLUCOSE UA (POCT) Negative Negative mg/dL [facility] HEMOGLOBIN/BLOOD UA (POCT) Negative Negative [facility] KETONE UA (POCT) Negative Negative mg/dL [facility] LEUKOCYTES UA (POCT) Moderate Abnormal Negative [facility] NITRITE UA (POCT) Negative Negative [facility] PH UA (POCT) 7.0 4.5 - 8.0 [facility] Protein Ql (U) Negative Negative mg/dL [facility] SPECIFIC GRAVITY UA (POCT) 1.015 1.005 - 1.030 [facility] UROBILINOGEN UA (POCT) 0.2 E.U./dL Normal E.U./ dL [facility] Laboratory - Chemistry and C hemistry - challengeon 05-28-2022 Free T4 [Mass/Vol] 0.96 ng/dL 0.76-1.46 [facility] Work Phone: Magnesium [Mass/Vol] 2.0 mg/dL 1.6-2.[address] [facility] Work Phone: No Panel Informationon 05-28 Thyroid Stimulating Hormone (TSH) 2.35 uIU/mL 0.358-3.74 [facility] Work Phone: GUILLERMINA SCREENINGon 02-23-2022 [facility] Office Visiton 07-22-2017 Dietary management education, guidance, and counseling (procedure) yes Invalid Interpretation Code [facility] Work Phone: [phone] Documentation of current medications (procedure) Done Invalid Interpretation Code [facility] Work Phone: [phone] Fall risk assessment No Invalid Interpretation Code [facility] Work Phone: [phone] Protein mass conc Done Invalid Interpretation Code [facility] Work Phone: [phone] Tobacco smoking status NHIS Former smoker Invalid Interpretation Code [facility] Work Phone: [phone] Tobacco use [facility] Former smoker Invalid Interpretation Code [facility] Work Phone: [phone] Replaced Document: [place] E CG Observationson 07-22-2017 EKG QRS axis -20 deg Invalid Interpretation Code [facility] Work Phone: [phone] electrocardiogram interpretation Sinus Rhythm - Nonspecific T-abnormality. ABNORMAL Invalid Interpretation Code [facility] Work Phone: [phone] GE use only - for LinkLogic import when terms are not otherwise specified 398 ms Invalid Interpretation Code [facility] Work Phone: [phone] Interpretation Sinus Rhythm - Nonspecific T-abnormality. ABNORMAL Invalid Interpretation Code [facility] Work Phone: [phone] P [place] 35 deg Invalid Interpretation Code [facility] Work Phone: P wave axis, electrocardiogram 35 deg Invalid Interpretation Code [facility] Work Phone: [phone] NC Interval 142 ms Invalid Interpretation Code [facility] Work Phone: [phone] NC interval, electrocardiogram 142 ms Invalid Interpretation Code [facility] Work Phone: [phone] Pulse (Heart Rate) 60 /min Invalid Interpretation Code [facility] Work Phone: [phone] QRS axis, electrocardiogram -20 deg Invalid Interpretation Code [facility] Work Phone: [phone] QRS Duration 104 ms Invalid Interpretation Code [facility] Work Phone: [phone] QRS duration, electrocardiogram 104 ms Invalid Interpretation Code [facility] Work Phone: [phone] QT Interval new path ms Invalid Interpretation Code [facility] Work Phone: [phone] QT interval, electrocardiogram new path ms Invalid Interpretation Code [facility] Work Phone: [phone] QTc Suarez 398 ms Invalid Interpretation Code [facility] Work Phone: [phone] T [place] -1 deg Invalid Interpretation Code [facility] Work Phone: [phone] T wave axis, electrocardiogram -1 deg Invalid Interpretation Code [facility] Work Phone: [phone] Clinical Lists Update: Pre06-30-2017 Left ventricular Ejection fraction 65 % Invalid Interpretation Code [facility] Phone: [phone] Office Visiton 04-23-2017 Dietary management education, guidance, and counseling (procedure) yes Invalid Interpretation Code [facility] Work Phone: [phone] Documentation of current medications (procedure) Done Invalid Interpretation Code [facility] Work Phone: [phone] Fall risk assessment No Invalid Interpretation Code [facility] Phone: [phone] Protein mass conc Done [facility] Work Phone: [phone] Clinical Lists Update: Pre04-21-2017 Left ventricular Ejection fraction 60 % [facility] Work Phone: [phone] External Other: Preferred Me thod of [facility] 01-21-2017 GE use only - for LinkLogic import when terms are not otherwise specified secmsg Invalid Interpretation Code [facility] Work Phone: [phone] METHCONTACT secmsg [facility] Work Phone: [phone] Office Visit: [facility] 01-21-20 17 Documentation of current medications (procedure) Done Invalid Interpretation Code [facility] Work Phone: [phone] Fall risk assessment No Invalid Interpretation Code [facility] Work Phone: [phone] Protein mass conc Done [facility] Work Phone: [phone] Replaced Document: Amber Peraltaon 01-20-2017 EKG QRS axis -18 deg [facility] Work Phone: [phone] electrocardiogram interpretation Sinus Rhythm - Nonspecific T-abnormality. ABNORMAL Invalid Interpretation Code [facility] Work Phone: [phone] Interpretation Sinus Rhythm - Nonspecific T-abnormality. ABNORMAL [facility] Work Phone: [phone] P [place] 43 deg [facility] Work Phone: [phone] P wave axis, electrocardiogram 43 deg Invalid Interpretation Code [facility] Work Phone: NC Interval 148 ms [facility] Work Phone: [phone] NC interval, electrocardiogram 148 ms Invalid Interpretation Code [facility] Work Phone: [phone] Pulse (Heart Rate) 72 /min Invalid Interpretation Code [facility] Work Phone: [phone] QRS axis, electrocardiogram -18 deg Invalid Interpretation Code [facility] Work Phone: [phone] QRS Duration 106 ms [facility] Work Phone: [phone] QRS duration, electrocardiogram 106 ms Invalid Interpretation Code [facility] Work Phone: [phone] QT Interval new path ms [facility] Work Phone: [phone] QT interval, electrocardiogram new path ms Invalid Interpretation Code [facility] Work Phone: [phone] T [place] -1 deg [facility] Work Phone: [phone] T wave axis, electrocardiogram -1 deg Invalid Interpretation Code [facility] Work Phone: Clinical Lists Update: Prelo purse maker 01-08-2017 Left ventricular Ejection fraction 65 % [facility] Work Phone: [phone] Tobacco smoking status NHIS Former smoker [facility] Work Phone: [phone] Tobacco use [facility] Former smoker Invalid Interpretation Code [facility] Chart Maintenance[facility] 01-02-20 17 HbA1c 7.2 % Invalid Interpretation Code [facility] Work Phone: Vital Signs Date Time Vital Sign Value Performing Clinician Facility 04-24-2025 07:44-0400 Body mass index (BMI) [Ratio] 24.92 kg/m2 Francine Madrid REED OR WIND INSTRUMENT REPAIRER.TOOL MACHINE SETUP OPERATOR Work Phone: [facility] 04-24-2025 07:44-0400 Body weight 63 kg Francine Madrid APRN.TOOL MACHINE SETUP OPERATOR Work Phone: [facility] 04-24-2025 07:44-0400 Diastolic blood pressure 76 mm[Hg] Francine Madrid REED OR WIND INSTRUMENT REPAIRER.TOOL MACHINE SETUP OPERATOR Work Phone: [facility] 04-24-2025 07:44-0400 Heart rate 68 /min Francine Madrid REED OR WIND INSTRUMENT REPAIRER.TOOL MACHINE SETUP OPERATOR Work Phone: [facility] 04-24-2025 07:44-0400 Systolic blood pressure 138 mm[Hg] Francine Madrid REED OR WIND INSTRUMENT REPAIRER.ELIZABETH Work Phone: [facility] 04-19-2025 08:46-0400 Body height 159 cm Cherise Sifuentes PA-C Work Phone: [facility] 04-19-2025 08:46-0400 Body mass index (BMI) [Ratio] 25.66 kg/m2 Cherise Sifuentes PA-C Work Phone: [facility] 04-19-2025 08:46-0400 Body temperature 97.2 [degF] Cherise Sifuentes PA-C Work Phone: [facility] 04-19-2025 08:46-0400 Body weight 64.86 kg Cherise Sifuentes PA-C Work Phone: [facility] 04-19-2025 08:46-0400 Diastolic blood pressure 72 mm[Hg] Cherise MAYS-C Work Phone: [facility] 04-19-2025 08:46-0400 Heart rate 58 /min Cherise Sifuentes PA-C Work Phone: [facility] 04-19-2025 08:46-0400 Respiratory rate 16 /min Cherise Sifuentes PA-C Work Phone: [facility] 04-19-2025 08:46-0400 SaO2% (BldA) [Mass fraction] 98 % Cherise Sifuentes PA-C Work Phone: [facility] 04-19-2025 08:46-0400 Systolic blood pressure 136 mm[Hg] Cherise Sifuentes PA-C Work Phone: [facility] 04-09-2025 09:12-0400 Body height 159 cm Sima Dumont APRN.TOOL MACHINE SETUP OPERATOR Work Phone: [facility] 04-09-2025 09:12-0400 Body mass index (BMI) [Ratio] 25.66 kg/m2 Sima Dumont APRN.TOOL MACHINE SETUP OPERATOR Work Phone: [facility] 04-09-2025 09:12-0400 Body weight 64.86 kg Sima Dumont APRN.TOOL MACHINE SETUP OPERATOR Work Phone: [facility] 04-09-2025 09:12-0400 Diastolic blood pressure 90 mm[Hg] Sima Dumont APRN.TOOL MACHINE SETUP OPERATOR Work Phone: [facility] 04-09-2025 09:12-0400 Systolic blood pressure 156 mm[Hg] Sima Dumont APRN.TOOL MACHINE SETUP OPERATOR Work Phone: [facility] 03-21-2025 07:56-0400 Body mass index (BMI) [Ratio] 25.46 kg/m2 Chad Mariee APRN.TOOL MACHINE SETUP OPERATOR Work Phone: [facility] 03-21-2025 07:56-0400 Body temperature 97.59 [degF] Chad Mariee APRN.TOOL MACHINE SETUP OPERATOR Work Phone: [facility] 03-21-2025 07:56-0400 Body weight 65.2 kg Chad Russellenter REED OR WIND INSTRUMENT REPAIRER.TOOL MACHINE SETUP OPERATOR Work Phone: [facility] 03-21-2025 07:56-0400 Diastolic blood pressure 88 mm[Hg] Chad Mariee REED OR WIND INSTRUMENT REPAIRER.TOOL MACHINE SETUP OPERATOR Work Phone: [facility] 03-21-2025 07:56-0400 Heart rate 63 /min Chad Mariee REED OR WIND INSTRUMENT REPAIRER.TOOL MACHINE SETUP OPERATOR Work Phone: [facility] 03-21-2025 07:56-0400 SaO2% (BldA) [Mass fraction] 97 % Tennyson Mariee REED OR WIND INSTRUMENT REPAIRER.TOOL MACHINE SETUP OPERATOR Work Phone: [facility] 03-21-2025 07:56-0400 Systolic blood pressure 163 mm[Hg] Chad Mariee REED OR WIND INSTRUMENT REPAIRER.TOOL MACHINE SETUP OPERATOR Work Phone: [facility] 03-16-2025 08:39-0400 Body height 160 cm Alexa Matute MD Work Phone: [facility] 03-16-2025 08:39-0400 Body mass index (BMI) [Ratio] 25.44 kg/m2 Alexa Matute MD Work Phone: [facility] 03-16-2025 08:39-0400 Body weight 65.14 kg Alexa Matute MD Work Phone: [facility] 03-16-2025 08:39-0400 Diastolic blood pressure 90 mm[Hg] Alexa Matute MD Work Phone: [facility] 03-16-2025 08:39-0400 Heart rate 57 /min Alexa Matute MD Work Phone: [facility] 03-16-2025 08:39-0400 Respiratory rate 17 /min Alexa Matute MD Work Phone: [facility] 03-16-2025 08:39-0400 SaO2% (BldA) [Mass fraction] 99 % Alexa Matute MD Work Phone: [facility] 03-16-2025 08:39-0400 Systolic blood pressure 160 mm[Hg] Alexa Matute MD Work Phone: [facility] 02-19-2025 08:44-0400 Diastolic blood pressure 80 mm[Hg] Ori Mbanugo DO Work Phone: [facility] 02-19-2025 08:44-0400 Systolic blood pressure 164 mm[Hg] Ori Mbanugo DO Work Phone: [facility] 02-19-2025 08:41-0400 Heart rate 65 /min Ori Mbanugo DO Work Phone: [facility] 02-19-2025 08:41-0400 SaO2% (BldA) [Mass fraction] 99 % Ori Mbanugo DO Work Phone: [facility] 02-16-2025 09:08-0400 Body mass index (BMI) [Ratio] 25.59 kg/m2 Alexa Matute MD Work Phone: [facility] 02-16-2025 09:08-0400 Body temperature 97.11 [degF] Alexa Matute MD Work Phone: [facility] 02-16-2025 09:08-0400 Body weight 65.32 kg Alexa Matute MD Work Phone: [facility] 02-16-2025 09:08-0400 Diastolic blood pressure 70 mm[Hg] Alexa Matute MD Work Phone: [facility] 02-16-2025 09:08-0400 Heart rate 67 /min Alexa Matute MD Work Phone: [facility] 02-16-2025 09:08-0400 SaO2% (BldA) [Mass fraction] 98 % Alexa Matute MD Work Phone: [facility] 02-16-2025 09:08-0400 Systolic blood pressure 140 mm[Hg] Alexa Matute MD Work Phone: [facility] 12-29-2024 13:33-0500 Body mass index (BMI) [Ratio] 23.99 kg/m2 Francine Madrid APRN.TOOL MACHINE SETUP OPERATOR Work Phone: [facility] 12-29-2024 13:33-0500 Body weight 61.24 kg Francine Madrid APRN.TOOL MACHINE SETUP OPERATOR Work Phone: [facility] 12-29-2024 13:33-0500 Diastolic blood pressure 81 mm[Hg] Francine Madrid APRN.TOOL MACHINE SETUP OPERATOR Work Phone: [facility] 12-29-2024 13:33-0500 Heart rate 67 /min Francine Madrid APRN.TOOL MACHINE SETUP OPERATOR Work Phone: [facility] 12-29-2024 13:33-0500 SaO2% (BldA) [Mass fraction] 98 % Francine Madrid APRN.TOOL MACHINE SETUP OPERATOR Work Phone: [facility] 12-29-2024 13:33-0500 Systolic blood pressure 171 mm[Hg] Francine Madrid APRN.TOOL MACHINE SETUP OPERATOR Work Phone: [facility] 11-03-2024 08:39-0500 Body height 159.8 cm Alexa Matute MD Work Phone: [facility] 11-03-2024 08:39-0500 Body mass index (BMI) [Ratio] 25.23 kg/m2 Alexa Matute MD Work Phone: [facility] 11-03-2024 08:39-0500 Body temperature 96.91 [degF] Alexa Matute MD Work Phone: [facility] 11-03-2024 08:39-0500 Body weight 64.41 kg Alexa Matute MD Work Phone: [facility] 11-03-2024 08:39-0500 Diastolic blood pressure 78 mm[Hg] Alexa Matute MD Work Phone: [facility] 11-03-2024 08:39-0500 Heart rate 60 /min Alexa Matute MD Work Phone: [facility] 11-03-2024 08:39-0500 SaO2% (BldA) [Mass fraction] 98 % Alexa Matute MD Work Phone: [facility] 11-03-2024 08:39-0500 Systolic blood pressure 138 mm[Hg] Alexa Matute MD Work Phone: [facility] 10-18-2024 09:37-0500 Diastolic blood pressure 82 mm[Hg] Clifton Hung MD Work Phone: [facility] 10-18-2024 09:37-0500 Systolic blood pressure 132 mm[Hg] Clifton Hung MD Work Phone: [facility] 10-18-2024 09:19-0500 Body mass index (BMI) [Ratio] 24.88 kg/m2 Clifton Hung MD Work Phone: [facility] 10-18-2024 09:19-0500 Body temperature 97.59 [degF] Clifton Hung MD Work Phone: [facility] 10-18-2024 09:19-0500 Body weight 63.5 kg Clifton Hung MD Work Phone: [facility] 10-18-2024 09:19-0500 Heart rate 62 /min Clifton Hung MD Work Phone: [facility] 10-18-2024 09:19-0500 Respiratory rate 16 /min Clifton Hung MD Work Phone: [facility] 09-22-2024 09:08-0500 Body mass index (BMI) [Ratio] 24.77 kg/m2 Alexa Matute MD Work Phone: [facility] 09-22-2024 09:08-0500 Body weight 63.23 kg Alexa Matute MD Work Phone: [facility] 09-22-2024 09:08-0500 Diastolic blood pressure 68 mm[Hg] Alexa Matute MD Work Phone: [facility] 09-22-2024 09:08-0500 Heart rate 72 /min Alexa Matute MD Work Phone: [facility] 09-22-2024 09:08-0500 Respiratory rate 12 /min Alexa Matute MD Work Phone: [facility] 09-22-2024 09:08-0500 Systolic blood pressure 120 mm[Hg] Alexa Matute MD Work Phone: [facility] 09-14-2024 08:44-0500 Body mass index (BMI) [Ratio] 24.76 kg/m2 Chad Mariee REED OR WIND INSTRUMENT REPAIRER.TOOL MACHINE SETUP OPERATOR Work Phone: [facility] 09-14-2024 08:44-0500 Body temperature 97.7 [degF] Chad Mariee REED OR WIND INSTRUMENT REPAIRER.TOOL MACHINE SETUP OPERATOR Work Phone: [facility] 09-14-2024 08:44-0500 Body weight 63.2 kg Chad Mariee REED OR WIND INSTRUMENT REPAIRER.TOOL MACHINE SETUP OPERATOR Work Phone: [facility] 09-14-2024 08:44-0500 Diastolic blood pressure 83 mm[Hg] Chad Mariee REED OR WIND INSTRUMENT REPAIRER.TOOL MACHINE SETUP OPERATOR Work Phone: [facility] 09-14-2024 08:44-0500 Heart rate 72 /min Chad Mariee REED OR WIND INSTRUMENT REPAIRER.TOOL MACHINE SETUP OPERATOR Work Phone: [facility] 09-14-2024 08:44-0500 SaO2% (BldA) [Mass fraction] 96 % Chad Mariee REED OR WIND INSTRUMENT REPAIRER.TOOL MACHINE SETUP OPERATOR Work Phone: [facility] 09-14-2024 08:44-0500 Systolic blood pressure 155 mm[Hg] Chad Mariee REED OR WIND INSTRUMENT REPAIRER.TOOL MACHINE SETUP OPERATOR Work Phone: [facility] 08-04-2024 10:20-0400 Diastolic blood pressure 80 mm[Hg] Ori Lord DO Work Phone: [facility] 08-04-2024 10:20-0400 Systolic blood pressure 145 mm[Hg] Ori Quanugo DO Work Phone: [facility] 08-04-2024 10:18-0400 Body mass index (BMI) [Ratio] 24.7 kg/m2 Ori Mbanugo DO Work Phone: [facility] 08-04-2024 10:18-0400 Body weight 63.05 kg Ori Quanugo DO Work Phone: [facility] 08-04-2024 10:180400 Heart rate 63 /min Ori Quanugo DO Work Phone: [facility] 08-04-2024 10:180400 SaO2% (BldA) [Mass fraction] 99 % Ori Quanugo DO Work Phone: [facility] 07-11-2024 13:14-0400 Body height 159.8 cm Alexa Matute MD Work Phone: [facility] 07-11-2024 13:14-0400 Body mass index (BMI) [Ratio] 24.74 kg/m2 Alexa Matute MD Work Phone: [facility] 07-11-2024 13:14-0400 Body temperature 97.39 [degF] Alexa Matute MD Work Phone: [facility] 07-11-2024 13:14-0400 Body weight 63.14 kg Alexa Matute MD Work Phone: [facility] 07-11-2024 13:14-0400 Diastolic blood pressure 70 mm[Hg] Alexa Matute MD Work Phone: [facility] 07-11-2024 13:14-0400 Heart rate 68 /min Alexa Matute MD Work Phone: [facility] 07-11-2024 13:14-0400 SaO2% (BldA) [Mass fraction] 98 % Alexa Matute MD Work Phone: [facility] 07-11-2024 13:14-0400 Systolic blood pressure 118 mm[Hg] Alexa Matute MD Work Phone: [facility] 07-04-2024 10:55-0400 Diastolic blood pressure 76 mm[Hg] Ori Mbanugo DO Work Phone: [facility] 07-04-2024 10:55-0400 Heart rate 70 /min Ori Mbanugo DO Work Phone: [facility] 07-04-2024 10:55-0400 SaO2% (BldA) [Mass fraction] 99 % Ori Mbanugo DO Work Phone: [facility] 07-04-2024 10:55-0400 Systolic blood pressure 121 mm[Hg] Ori Mbanugo DO Work Phone: [facility] 05-23-2024 11:54-0400 Diastolic blood pressure 85 mm[Hg] Ori Kostas Mbanugo DO Work Phone: [facility] 05-23-2024 11:54-0400 Heart rate 72 /min Ori Kostas Mbanugo DO Work Phone: [facility] 05-23-2024 11:54-0400 Systolic blood pressure 137 mm[Hg] Ori Kostas Mbanugo DO Work Phone: [facility] 05-01-2024 12:54-0400 Body mass index (BMI) [Ratio] 26.05 kg/m2 Julio Moomaw REED OR WIND INSTRUMENT REPAIRER.TOOL MACHINE SETUP OPERATOR Work Phone: [facility] 05-01-2024 12:54-0400 Body temperature 97.5 [degF] Julio Moomaw REED OR WIND INSTRUMENT REPAIRER.TOOL MACHINE SETUP OPERATOR Work Phone: [facility] 05-01-2024 12:54-0400 Body weight 66.7 kg Julio Moomaw REED OR WIND INSTRUMENT REPAIRER.TOOL MACHINE SETUP OPERATOR Work Phone: [facility] 05-01-2024 12:54-0400 Diastolic blood pressure 78 mm[Hg] Julio Moomaw REED OR WIND INSTRUMENT REPAIRER.TOOL MACHINE SETUP OPERATOR Work Phone: [facility] 05-01-2024 12:54-0400 Heart rate 70 /min Julio Moomaw REED OR WIND INSTRUMENT REPAIRER.TOOL MACHINE SETUP OPERATOR Work Phone: [facility] 05-01-2024 12:54-0400 Respiratory rate 16 /min Julio Moomaw REED OR WIND INSTRUMENT REPAIRER.TOOL MACHINE SETUP OPERATOR Work Phone: [facility] 05-01-2024 12:54-0400 SaO2% (BldA) [Mass fraction] 98 % Julio Moomaw REED OR WIND INSTRUMENT REPAIRER.TOOL MACHINE SETUP OPERATOR Work Phone: [facility] 05-01-2024 12:54-0400 Systolic blood pressure 126 mm[Hg] Julio Moomaw REED OR WIND INSTRUMENT REPAIRER.TOOL MACHINE SETUP OPERATOR Work Phone: [facility] 04-25-2024 08:48-0400 Diastolic blood pressure 73 mm[Hg] Ori Kostas Mbanugo DO Work Phone: [facility] 04-25-2024 08:48-0400 Systolic blood pressure 156 mm[Hg] Ori Kostas Mbanugo DO Work Phone: [facility] 04-25-2024 08:02-0400 Heart rate 60 /min Ori Kostas Mbanugo DO Work Phone: [facility] 04-25-2024 08:02-0400 SaO2% (BldA) [Mass fraction] 100 % Ori Kostas Mbanugo DO Work Phone: [facility] 04-17-2024 09:34-0400 Body mass index (BMI) [Ratio] 25.87 kg/m2 Francine Madrid REED OR WIND INSTRUMENT REPAIRER.TOOL MACHINE SETUP OPERATOR Work Phone: [facility] 04-17-2024 09:34-0400 Body weight 66.22 kg Francine Madrid REED OR WIND INSTRUMENT REPAIRER.TOOL MACHINE SETUP OPERATOR Work Phone: [facility] 04-17-2024 09:34-0400 Diastolic blood pressure 76 mm[Hg] Francine Madrid REED OR WIND INSTRUMENT REPAIRER.TOOL MACHINE SETUP OPERATOR Work Phone: [facility] 04-17-2024 09:34-0400 Heart rate 58 /min Francine Madrid REED OR WIND INSTRUMENT REPAIRER.TOOL MACHINE SETUP OPERATOR Work Phone: [facility] 04-17-2024 09:34-0400 Respiratory rate 14 /min Francine Madrid REED OR WIND INSTRUMENT REPAIRER.TOOL MACHINE SETUP OPERATOR Work Phone: [facility] 04-17-2024 09:34-0400 Systolic blood pressure 135 mm[Hg] Francine Madrid REED OR WIND INSTRUMENT REPAIRER.TOOL MACHINE SETUP OPERATOR Work Phone: [facility] 03-22-2024 17:20-0400 Body mass index (BMI) [Ratio] 25.87 kg/m2 Clifton Hung MD Work Phone: [facility] 03-22-2024 17:20-0400 Body temperature 98.29 [degF] Clifton Hung MD Work Phone: [facility] 03-22-2024 17:20-0400 Body weight 66.22 kg Clifton Hung MD Work Phone: [facility] 03-22-2024 17:20-0400 Diastolic blood pressure 68 mm[Hg] Clifton Hung MD Work Phone: [facility] 03-22-2024 17:20-0400 Heart rate 81 /min Clifton Hung MD Work Phone: [facility] 03-22-2024 17:20-0400 Respiratory rate 16 /min Clifton Hung MD Work Phone: [facility] 03-22-2024 17:20-0400 SaO2% (BldA) [Mass fraction] 98 % Clifton Hung MD Work Phone: [facility] 03-22-2024 17:20-0400 Systolic blood pressure 120 mm[Hg] Clifton Hung MD Work Phone: [facility] 03-14-2024 09:50-0400 Body mass index (BMI) [Ratio] 26.03 kg/m2 Chad Mariee REED OR WIND INSTRUMENT REPAIRER.TOOL MACHINE SETUP OPERATOR Work Phone: [facility] 03-14-2024 09:50-0400 Body temperature 97.7 [degF] Chad Mariee REED OR WIND INSTRUMENT REPAIRER.TOOL MACHINE SETUP OPERATOR Work Phone: [facility] 03-14-2024 09:50-0400 Body weight 66.63 kg Chad Mariee APRN.TOOL MACHINE SETUP OPERATOR Work Phone: [facility] 03-14-2024 09:50-0400 Diastolic blood pressure 85 mm[Hg] Chad Mariee REED OR WIND INSTRUMENT REPAIRER.TOOL MACHINE SETUP OPERATOR Work Phone: [facility] 03-14-2024 09:50-0400 Heart rate 67 /min Chad Mariee REED OR WIND INSTRUMENT REPAIRER.TOOL MACHINE SETUP OPERATOR Work Phone: [facility] 03-14-2024 09:50-0400 SaO2% (BldA) [Mass fraction] 100 % hCad Mariee REED OR WIND INSTRUMENT REPAIRER.TOOL MACHINE SETUP OPERATOR Work Phone: [facility] 03-14-2024 09:50-0400 Systolic blood pressure 144 mm[Hg] Chad Mariee REED OR WIND INSTRUMENT REPAIRER.TOOL MACHINE SETUP OPERATOR Work Phone: [facility] 01-18-2024 13:48-0400 Body weight 66.68 kg Sima Dumont APRN.TOOL MACHINE SETUP OPERATOR Work Phone: [facility] 01-18-2024 13:48-0400 Diastolic blood pressure 72 mm[Hg] Sima Dumont APRN.TOOL MACHINE SETUP OPERATOR Work Phone: [facility] 01-18-2024 13:48-0400 Systolic blood pressure 162 mm[Hg] Sima Dumont APRN.TOOL MACHINE SETUP OPERATOR Work Phone: [facility] 01-14-2024 08:34-0500 Diastolic blood pressure 78 mm[Hg] Francine Madrid REED OR WIND INSTRUMENT REPAIRER.TOOL MACHINE SETUP OPERATOR Work Phone: [facility] 01-14-2024 08:34-0500 Systolic blood pressure 140 mm[Hg] Francine Madrid APRN.TOOL MACHINE SETUP OPERATOR Work Phone: [facility] 01-14-2024 08:23-0500 Body weight 65.77 kg Francine Madrid APRN.TOOL MACHINE SETUP OPERATOR Work Phone: [facility] 01-14-2024 08:23-0500 Heart rate 74 /min Francine Madrid REED OR WIND INSTRUMENT REPAIRER.TOOL MACHINE SETUP OPERATOR Work Phone: [facility] 01-14-2024 08:23-0500 Respiratory rate 14 /min Francine Madrid REED OR WIND INSTRUMENT REPAIRER.TOOL MACHINE SETUP OPERATOR Work Phone: [facility] 12-31-2023 13:43-0500 Body weight 64.86 kg Francine Madrid REED OR WIND INSTRUMENT REPAIRER.TOOL MACHINE SETUP OPERATOR Work Phone: [facility] 12-31-2023 13:43-0500 Diastolic blood pressure 90 mm[Hg] Francine Madrid REED OR WIND INSTRUMENT REPAIRER.TOOL MACHINE SETUP OPERATOR Work Phone: [facility] 12-31-2023 13:43-0500 Heart rate 77 /min Francine Madrid REED OR WIND INSTRUMENT REPAIRER.TOOL MACHINE SETUP OPERATOR Work Phone: [facility] 12-31-2023 13:43-0500 Respiratory rate 16 /min Francine Madrid REED OR WIND INSTRUMENT REPAIRER.TOOL MACHINE SETUP OPERATOR Work Phone: [facility] 12-31-2023 13:43-0500 Systolic blood pressure 170 mm[Hg] Francine Madrid REED OR WIND INSTRUMENT REPAIRER.TOOL MACHINE SETUP OPERATOR Work Phone: [facility] 12-28-2023 02:53-0500 Body temperature 98 [degF] Dr. Clifton Hung Work Phone: [facility] 12-28-2023 02:53-0500 Diastolic blood pressure 65 mm[Hg] Dr. Clifton Hung Work Phone: [facility] 12-28-2023 02:53-0500 Heart rate 96 /min Dr. Clifton Hung Work Phone: [facility] 12-28-2023 02:53-0500 Respiratory rate 18 /min Dr. Clifton Hung Work Phone: [facility] 12-28-2023 02:53-0500 SaO2% (BldA) [Mass fraction] 96 % Dr. Clifton Hung Work Phone: [facility] 12-28-2023 02:53-0500 Systolic blood pressure 188 mm[Hg] Dr. Clifton Hung Work Phone: 1(588)619-934721 [place] [address] 12-28-2023 00:40-0500 Body height 160.[address] Clifton Hung Work Phone: 6(160)369-380521 [place] [address] 12-28-2023 00:40-0500 Body mass index (BMI) [Ratio] 25.6 kg/m2 Dr. Clifton Hung Work Phone: 9(411)392-593821 [place] [address] 12-28-2023 00:40-0500 Body weight 65.[address] Clifton Hung Work Phone: 5(119)923-916421 [place] [address] 12-22-2023 15:03-0500 Body temperature 99.3 [degF] Dr. Clifton Hung Work Phone: 3(013)315-312321 [place] [address] 12-22-2023 15:03-0500 Diastolic blood pressure 74 mm[Hg] Dr. Clifton Hung Work Phone: 0(554)704-639321 [place] [address] 12-22-2023 15:03-0500 Heart rate 88 /min Dr. Clifton Hung Work Phone: 1(468)014-980521 [place] [address] 12-22-2023 15:03-0500 Respiratory rate 16 /min Dr. Clifton Hung Work Phone: 6(133)727-427721 [place] [address] 12-22-2023 15:03-0500 SaO2% (BldA) [Mass fraction] 98 % Dr. Clifton Hung Work Phone: 9(227)518-788321 [place] [address] 12-22-2023 15:03-0500 Systolic blood pressure 103 mm[Hg] Dr. Clifton Hung Work Phone: 3(126)640-069421 [place] [address] 12-22-2023 13:22-0500 Body height 160.[address] Clifton Hung Work Phone: 8(026)326-499821 [place] [address] 12-22-2023 13:22-0500 Body mass index (BMI) [Ratio] 24.8 kg/m2 Dr. Clifton Hung Work Phone: 3(393)371-136521 [place] [address] 12-22-2023 13:22-0500 Body weight 63.[address] Clifton Hung Work Phone: [facility] 10-08-2023 08:59-0500 Body weight 64.86 kg Francine Madrid REED OR WIND INSTRUMENT REPAIRER.TOOL MACHINE SETUP OPERATOR Work Phone: [facility] 10-08-2023 08:59-0500 Diastolic blood pressure 85 mm[Hg] Francine Madrid REED OR WIND INSTRUMENT REPAIRER.TOOL MACHINE SETUP OPERATOR Work Phone: [facility] 10-08-2023 08:59-0500 Heart rate 62 /min Francine Madrid REED OR WIND INSTRUMENT REPAIRER.TOOL MACHINE SETUP OPERATOR Work Phone: [facility] 10-08-2023 08:59-0500 Respiratory rate 14 /min Francine Madrid REED OR WIND INSTRUMENT REPAIRER.TOOL MACHINE SETUP OPERATOR Work Phone: [facility] 10-08-2023 08:59-0500 Systolic blood pressure 166 mm[Hg] Francine Madrid REED OR WIND INSTRUMENT REPAIRER.TOOL MACHINE SETUP OPERATOR Work Phone: 6(561)989-948072 [place] [address] 09-11-2023 14:30-0400 Body height 160.[address] Clifton Hung Work Phone: 6(824)882-772311 [place] [address] 09-11-2023 14:30-0400 Body mass index (BMI) [Ratio] 25.4 kg/m2 Dr. Clifton Hung Work Phone: 8(833)701-666711 [place] [address] 09-11-2023 14:30-0400 Body temperature 98.9 [degF] Dr. Clifton Hung Work Phone: 1(423)448-354711 [place] [address] 09-11-2023 14:30-0400 Body weight 65.[address] Clifton Hung Work Phone: 8(647)574-632411 [place] [address] 09-11-2023 14:30-0400 Diastolic blood pressure 94 mm[Hg] Dr. Clifton Hung Work Phone: 2(626)071-134511 [place] [address] 09-11-2023 14:30-0400 Heart rate 91 /min Dr. Clifton Hung Work Phone: 5(855)349-126911 [place] [address] 09-11-2023 14:30-0400 Respiratory rate 20 /min Dr. Clifton Hung Work Phone: 5(995)950-623011 [place] [address] 09-11-2023 14:30-0400 SaO2% (BldA) [Mass fraction] 96 % Dr. Clifton Hung Work Phone: [facility] 09-11-2023 14:30-0400 Systolic blood pressure 107 mm[Hg] Dr. Clifton Hung Work Phone: 8(401)453-705911 [place] [address] 08-30-2023 10:24-0400 Body mass index (BMI) [Ratio] 26 kg/m2 Dr. Clifton Hung Work Phone: [facility] 08-30-2023 10:24-0400 Body weight 66.[address] Clifton Hung Work Phone: 9(451)700-268511 [place] [address] 08-30-2023 10:24-0400 Diastolic blood pressure 89 mm[Hg] Dr. Clifton Hung Work Phone: 2(083)665-727611 [place] [address] 08-30-2023 10:24-0400 Heart rate 62 /min Dr. Clifton Hung Work Phone: 9(407)858-535611 [place] [address] 08-30-2023 10:24-0400 Respiratory rate 18 /min Dr. Clifton Hung Work Phone: 4(041)955-791511 [place] [address] 08-30-2023 10:24-0400 Systolic blood pressure 184 mm[Hg] Dr. Clifton Hung Work Phone: [facility] 07-23-2023 11:06-0400 Body weight 63.14 kg Sima Dumont APRN.TOOL MACHINE SETUP OPERATOR Work Phone: [facility] 07-23-2023 11:06-0400 Diastolic blood pressure 78 mm[Hg] Sima Dumont APRN.TOOL MACHINE SETUP OPERATOR Work Phone: [facility] 07-23-2023 11:06-0400 Systolic blood pressure 120 mm[Hg] Sima Dumont APRN.TOOL MACHINE SETUP OPERATOR Work Phone: [facility] 07-15-2023 14:54-0400 Diastolic blood pressure 64 mm[Hg] Dr. Clifton Hung Work Phone: [facility] 07-15-2023 14:54-0400 Respiratory rate 16 /min Dr. Clifton Hung Work Phone: [facility] 07-15-2023 14:54-0400 Systolic blood pressure 130 mm[Hg] Dr. Clifton Hung Work Phone: [facility] 07-15-2023 14:53-0400 Heart rate 64 /min Dr. Clifton Hung Work Phone: 5(595)890-650711 [place] [address] 04-20-2023 10:38-0400 Body height 160.[address] Clifton Hung Work Phone: 4(554)135-532711 [place] [address] 04-20-2023 10:38-0400 Body weight 61.[address] Clifton Hung Work Phone: 3(528)221-901711 [place] [address] 04-08-2023 13:05-0400 Body height 157.5 cm Clifton Hung MD Work Phone: [facility] 04-08-2023 13:05-0400 Body weight 60.33 kg Clifton Hung MD Work Phone: [facility] 04-08-2023 13:05-0400 Diastolic blood pressure 84 mm[Hg] Clifton uHng MD Work Phone: [facility] 04-08-2023 13:05-0400 Heart rate 70 /min Clifton Hung MD Work Phone: [facility] 04-08-2023 13:05-0400 Respiratory rate 16 /min Clifton Hung MD Work Phone: [facility] 04-08-2023 13:05-0400 Systolic blood pressure 128 mm[Hg] Clifton Hung MD Work Phone: [facility] 04-01-2023 13:53-0400 Body mass index (BMI) [Ratio] 23.9 kg/m2 Dr. Clifton Hung Work Phone: [facility] 04-01-2023 13:53-0400 Body weight 61.[address] Clifton Hung Work Phone: 9(766)614-079211 [place] [address] 04-01-2023 13:53-0400 Diastolic blood pressure 80 mm[Hg] Dr. Clifton Hung Work Phone: [facility] 04-01-2023 13:53-0400 Heart rate 55 /min Dr. Clifton Hung Work Phone: [facility] 04-01-2023 13:53-0400 SaO2% (BldA) [Mass fraction] 98 % Dr. Clifton Hung Work Phone: [facility] 04-01-2023 13:53-0400 Systolic blood pressure 139 mm[Hg] Dr. Clifton Hung Work Phone: [facility] 02-26-2023 09:52-0400 Body height 158 cm Chad Mariee REED OR WIND INSTRUMENT REPAIRER.TOOL MACHINE SETUP OPERATOR Work Phone: [facility] 02-26-2023 09:52-0400 Body temperature 97.11 [degF] Chad Mariee REED OR WIND INSTRUMENT REPAIRER.TOOL MACHINE SETUP OPERATOR Work Phone: [facility] 02-26-2023 09:52-0400 Body weight 61.69 kg Chad Mariee REED OR WIND INSTRUMENT REPAIRER.TOOL MACHINE SETUP OPERATOR Work Phone: [facility] 02-26-2023 09:52-0400 Diastolic blood pressure 70 mm[Hg] Chad Mariee REED OR WIND INSTRUMENT REPAIRER.TOOL MACHINE SETUP OPERATOR Work Phone: [facility] 02-26-2023 09:52-0400 Heart rate 82 /min Chad Mariee REED OR WIND INSTRUMENT REPAIRER.TOOL MACHINE SETUP OPERATOR Work Phone: [facility] 02-26-2023 09:52-0400 SaO2% (BldA) [Mass fraction] 100 % Chad Mariee REED OR WIND INSTRUMENT REPAIRER.TOOL MACHINE SETUP OPERATOR Work Phone: [facility] 02-26-2023 09:52-0400 Systolic blood pressure 132 mm[Hg] Chad Mariee REED OR WIND INSTRUMENT REPAIRER.TOOL MACHINE SETUP OPERATOR Work Phone: [facility] 02-18-2023 11:10-0400 Body mass index (BMI) [Ratio] 24.3 kg/m2 Dr. Clifton Hung Work Phone: [facility] 02-18-2023 11:10-0400 Body weight 62.[address] Clifton Hung Work Phone: [facility] 02-18-2023 11:10-0400 Diastolic blood pressure 75 mm[Hg] Dr. Clifton Hung Work Phone: [facility] 02-18-2023 11:10-0400 Heart rate 66 /min Dr. Clifton Hung Work Phone: [facility] 02-18-2023 11:10-0400 Respiratory rate 16 /min Dr. Clifton Hung Work Phone: [facility] 02-18-2023 11:10-0400 Systolic blood pressure 121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 Comment on above: test results Start: 03-23-2024 Telephone encounter Clifton Hung MD Work Phone: [facility] Comment on above: Medication Problem Start: 03-22-2024 End: 03-22-2024 Patient encounter procedure Clifton Hung MD Work Phone: [facility] [place] Comment on above: Pharyngitis, unspeci fied etiology [...] Start: 03-09-2024 Documentation procedure Mammog chidi Coordinator [facility] Department Start: 03-09-2024 Letter encounter Mammography Coordinator [facility] Department Start: 03-09-2024 End: 03-09-2024 Subsequent hospital visit by physician Screen Mammo [facility] Mammogram Comment on above: 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 Comment on above: Refill Request Start: 01-21-2024 ambulatory Clifton allen MD Work Phone: [facility] Comment on above: Lisinopril and tests results Start: 01-18-2024 ambulatory Clifton allen MD Work Phone: [facility] Comment on above: Lab Start: 01-18-2024 End: 01-18-2024 Patient encounter procedure Sima Dumont APRN.TOOL MACHINE SETUP OPERATOR Work Phone: OB/Gynecology Comment on above: Dysuria (Primary Dx) ; Urinary frequency; Vaginal discharge; Genitourinary syndrome of menopause Start: 01-17-2024 Telephone encounter Clifton Hung MD Work Phone: [facility] Comment on above: High Blood Sugar; Or ders Start: 01-14-2024 End: 01-14-2024 Patient encounter procedure Francine Madrid APRN.TOOL MACHINE SETUP OPERATOR Work Phone: [facility] Comment on above: Essential hypertensi on (Primary Dx) Start: 01-10-2024 Chart abstracting Clifton romero MD Work Phone: [facility] Comment on above: Outside Diabetic Eye Exam Start: 01-10-2024 Ophthalmic examinati on and evaluation Clifton Hung MD Work Phone: [facility] Start: 01-03-2024 End: 01-03-[address] Clifton Hung Work Phone: [facility] Work Phone: Start: 01-03-2024 End: 01-03-[address] Clifton Hung Work Phone: [facility] Work Phone: Start: 01-03-2024 End: 01-03-2024 ambulatory Carson Alcantar Facility:[facility] Start: 12-31-2023 End: 12-31-2023 Patient encounter procedure Francine Madrid APRN.TOOL MACHINE SETUP OPERATOR Work Phone: [facility] Comment on above: Vaginal yeast infect ion (Primary Dx); Essential hypertension Start: 12-28-2023 Chart abstracting Clifton romero MD Work Phone: [facility] Comment on above: ER Discharge Summary Start: 12-28-2023 End: 12-28-2023 Emergency department patient visit Dr. Clifton Hung Work Phone: [facility] Work Phone: Start: 12-24-2023 ambulatory Clifton allen MD Work Phone: [facility] Comment on above: Influenza A Start: 12-22-2023 End: 12-22-2023 Emergency department patient visit Dr. Clifton Hung Work Phone: [facility] Work Phone: Start: 12-10-2023 Chart abstracting Clifton romero MD Work Phone: [facility] Comment on above: Outside Cjsi-Rot-VLR Ordered Start: 12-08-2023 End: 12-08-[address] Clifton Hung Work Phone: [facility] Work Phone: Start: 12-08-2023 End: 12-08-[address] Clifton Hung Work Phone: [facility] Work Phone: Start: 12-08-2023 End: 12-08-2023 ambulatory [facility] Facility:[facility] Start: 12-06-2023 End: 12-06-[address] Clifton Hung Work Phone: [facility] Work Phone: Start: 12-06-2023 End: 12-06-2023 ambulatory [facility] Facility:[facility] Start: 10-08-2023 End: 10-08-2023 Patient encounter procedure Francine Madrid APRN.CNP Work Phone: [facility] Comment on above: Essential hypertensi on (Primary Dx); Controlled type 2 diabetes mellitus without complication, without long-term current use of insulin (HCC); Mixed hyperlipidemia; Narcolepsy without cataplexy; Ductal carcinoma in situ (DCIS) of left breast; RLS (restless legs syndrome); Obstructive sleep apnea on CPAP Start: 10-06-2023 Non-patient / Non-visit Dr. Gabino Hung Work Phone: [facility] Work Phone: Start: 10-03-2023 Non-patient / Non-visit Dr. Gabino Hung Work Phone: [facility] Start: 10-01-2023 End: 10-01-[address] Clifton Hung Work Phone: [facility] Work Phone: Start: 10-01-2023 End: 10-01-[address] [facility]: Start: 09-21-2023 Non-patient / Non-visit Dr. Gabino Hung Work Phone: [facility] Work Phone: Start: 09-15-2023 Chart abstracting Clifton romero MD Work Phone: [facility] Comment on above: Outside Ophtalmology Start: 09-11-2023 End: 09-11-2023 Emergency department patient visit Dr. Clifton Hung Work Phone: [facility] Work Phone: Start: 09-08-[address] Yolande Hung [facility] Start: 08-31-2023 Chart abstracting Clifton romero MD Work Phone: [facility] Comment on above: Clinical Update Start: 08-30-2023 End: 08-30-[address] Clifton Hung Work Phone: [facility] Work Phone: Start: 08-02-2023 Chart abstracting Clifton romero MD Work Phone: [facility] Comment on above: Outside Ophthalmolog y Start: 07-23-2023 End: 07-23-2023 Patient encounter procedure Sima Dumont APRN.CNP Work Phone: OB/Gynecology Comment on above: Dysuria (Primary Dx) ; Urine frequency; Vaginal discharge; Vulvovaginal discomfort Start: 07-15-2023 End: 07-15-[address] Clifton Hung Work Phone: [facility] Work Phone: Start: 06-15-2023 Chart abstracting Clifton romero MD Work Phone: [facility] Comment on above: Outside Ophthalmolog y Start: 06-07-2023 Chart abstracting Clifton romero MD Work Phone: [facility] Comment on above: Consult Start: 04-20-2023 End: 05-07-[address] Clifton Hung Work Phone: [facility] Work Phone: Start: 04-20-2023 End: 05-07-[address] Clifton Hung Work Phone: [facility] Work Phone: Start: 04-09-2023 Chart abstracting Clifton romero MD Work Phone: [facility] Comment on above: Outside Diabetic Eye Exam Start: 04-08-2023 ambulatory Clifton allen MD Work Phone: [facility] Comment on above: re: vitamins Start: 04-08-2023 End: 04-08-2023 Ophthalmic examination and evaluation Clifton Hung MD Work Phone: [facility] [place] Start: 04-08-2023 End: 04-08-2023 Patient encounter procedure Clifton Hung MD Work Phone: [facility] [place] Comment on above: Encounter for Medica re annual wellness exam (Primary Dx); Controlled type 2 diabetes mellitus without complication, without long-term current use of insulin (HCC); Diabetic eye exam (HCC); Essential hypertension; Mixed hyperlipidemia; 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 Clifton Hung Work Phone: [facility] Gastroenterology Work Phone: Start: 02-26-2023 End: 02-26-2023 ambulatory Chad Mariee APRN.CNP Work Phone: Hematology/Oncology Comment on above: Ductal carcinoma in situ (DCIS) of left breast (Primary Dx); Encounter for screening mammogram for high-risk patient Start: 02-26-2023 End: 02-26-2023 Patient encounter procedure Chad Mariee APRN.CNP Work Phone: [facility] Start: 02-24-2023 End: 02-24-2023 Subsequent hospital visit by physician Screen Mammo [facility] Mammogram Comment on above: Breast neoplasm, Tis (DCIS), left [D05.12] Start: 02-22-2023 Chart abstracting Clifton romero MD Work Phone: [facility] [place] Comment on above: Outside Neurology Start: 02-19-2023 Chart abstracting Clifton romero MD Work Phone: [facility] Comment on above: Outside Cardiology Start: 02-18-2023 End: 02-18-[address] Clifton Hung Work Phone: [facility] Work Phone: Start: 02-17-2023 ambulatory Chad lance REED OR WIND INSTRUMENT REPAIRERCheyTOOL MACHINE SETUP OPERATOR Work Phone: Hematology/Oncology Comment on above: Lab work Start: 02-09-2023 End: 03-07-[address] [facility]if[facility]: Start: 02-09-2023 End: 02-09-2023 Patient encounter procedure Cherise Sifuentes PA-C Work Phone: [facility] Comment on above: Bacterial sinusitis (Primary Dx) Start: 02-08-2023 Refill Chad lance APRN.TOOL MACHINE SETUP OPERATOR Work Phone: Hematology/Oncology Comment on above: Refill Request Start: 02-05-2023 ambulatory Clifton allen MD Work Phone: [facility] Comment on above: Express care visit Start: 02-05-2023 End: 02-05-2023 Patient encounter procedure Lori Barriga APRN.TOOL MACHINE SETUP OPERATOR Work Phone: [facility] Comment on above: URI with cough and c ongestion (Primary Dx) Start: 01-11-2023 End: 01-11-2023 ambulatory TEO Kaplan [facility] Start: 01-07-2023 End: 02-05-[address] Clifton Hung Work Phone: [facility] Work Phone: Start: 01-07-2023 End: 02-05-[address] [facility]if[facility] Start: 12-17-2022 Telephone encounter Chad pollard APRN.TOOL MACHINE SETUP OPERATOR Work Phone: Hematology/Oncology Comment on above: Patient Question Start: 12-11-2022 ambulatory Clifton allen MD Work Phone: [facility] [place] Comment on above: Test results Start: 12-10-2022 End: 12-10-[address] Clifton Hung Work Phone: [facility] Gastroenterology Start: 12-10-2022 ambulatory Sima Dumont APRN.TOOL MACHINE SETUP OPERATOR Work Phone: OB/Gynecology Comment on above: re: Diagnosis Start: 12-09-2022 End: 12-09-2022 Patient encounter procedure Sima Dumont APRN.TOOL MACHINE SETUP OPERATOR Work Phone: OB/Gynecology Comment on above: Vaginal discharge (P rimary Dx) Start: 12-01-2022 Non-patient / Non-visit Dr. Gabino Hung Work Phone: [facility] Start: 12-01-2022 End: 12-01-2022 Admission to same day surgery center Dr. Clifton Hung Work Phone: [facility] Start: 12-01-2022 End: 12-01-[address] Clifton Hung Work Phone: [facility] Work Phone: Start: 11-25-2022 Telephone encounter Chad pollard APRN.TOOL MACHINE SETUP OPERATOR Work Phone: Hematology/Oncology Comment on above: Results Start: 11-25-2022 End: 11-25-2022 Subsequent hospital visit by physician Ct [facility] (I-Stat) Work Phone: Cat Scan Comment on above: Abnormal CT of the a bdomen [R93.5] Start: 11-23-2022 End: 11-23-[address] Clifton Hung Work Phone: [facility] Work Phone: Start: 11-23-2022 End: 11-23-[address] Clifton Hung Work Phone: [facility]Laboratory, Specimen Start: 11-19-2022 End: 11-19-[address] Clifton Hung Work Phone: [facility] Work Phone: Start: 11-19-2022 End: 11-19-[address] Clifton Hung Work Phone: [facility] Start: 11-19-2022 End: 11-19-[address] 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 Comment on above: Illness Start: 11-02-2022 End: 11-02-2022 Patient encounter procedure Shaneka Yang APRN.TOOL MACHINE SETUP OPERATOR Work Phone: [facility] Comment on above: URI, acute (Primary Dx) Start: 10-28-2022 Telephone encounter Chad pollard APRN.TOOL MACHINE SETUP OPERATOR Work Phone: Hematology/Oncology Comment on above: Results (Mammogram r esults) Start: 10-28-2022 End: 10-28-2022 Subsequent hospital visit by physician Diagnostic Mammo [facility] Mammogram Start: 10-05-2022 End: 10-05-2022 Patient encounter procedure Cherise Sifuentes PA-C Work Phone: 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); Ductal carcinoma in situ (DCIS) of left breast; History of hyperparathyroidism Start: 09-17-2022 Telephone encounter Clifton Hung MD Work Phone: [facility] [place] Comment on above: Results Start: 09-16-2022 ambulatory Chad lance REED OR WIND INSTRUMENT REPAIRER.TOOL MACHINE SETUP OPERATOR Work Phone: Hematology/Oncology Comment on above: CT Scan results test results Start: 09-16-2022 Telephone encounter Chad pollard APRN.TOOL MACHINE SETUP OPERATOR Work Phone: Hematology/Oncology Comment on above: Future Appointment; Results Start: 09-15-2022 End: 09-15-2022 Subsequent hospital visit by physician [facility] W[facility] Cat Scan Start: 09-10-2022 ambulatory Chad lance REED OR WIND INSTRUMENT REPAIRER.TOOL MACHINE SETUP OPERATOR Work Phone: Hematology/Oncology Comment on above: Tamoxifen Start: 09-09-2022 ambulatory Clifton allen MD Work Phone: [facility] [place] Comment on above: Ultrasound results Start: 09-09-2022 Telephone encounter Cherise felix PA-C Work Phone: [facility] [place] Comment on above: Results Start: 09-09-2022 End: 09-09-2022 Subsequent hospital visit by physician Us [facility] Mob 2 Work Phone: Radiology Comment on above: Epigastric pain [R10 .13] Start: 09-08-2022 End: 09-08-2022 Nursing evaluation of patient and report Mi Nurse Work Phone: [facility] [place] Comment on above: Epigastric pain Start: 09-07-2022 ambulatory Clifton allen MD Work Phone: [facility] [place] Comment on above: H Pylori test Start: 09-04-2022 ambulatory Clifton allen MD Work Phone: [facility] [place] Comment on above: H Pylori test Start: 09-03-2022 End: 09-03-2022 Patient encounter procedure Clifton Hung MD Work Phone: [facility] Comment on above: Epigastric pain (Malia alex Dx); Nausea; Need for vaccination Start: 09-03-2022 End: 09-03-[address] Clifton Hung Work Phone: [facility] Start: 08-28-2022 End: 08-28-2022 ambulatory Chad Mariee APRN.TOOL MACHINE SETUP OPERATOR Work Phone: Hematology/Oncology Comment on above: Breast neoplasm, Tis (DCIS), left (Primary Dx); Encounter for screening mammogram for high-risk patient; Nausea; Pain of upper abdomen Medical Tests Start: 08-28-2022 End: 08-28-2022 Patient encounter procedure Sima Dumont APRN.TOOL MACHINE SETUP OPERATOR Work Phone: OB/Gynecology Comment on above: Vaginal atrophy (Malia alex Dx); Vulvar dermatitis Start: 08-28-2022 End: 08-28-2022 Patient encounter procedure Chad Mariee APRN.TOOL MACHINE SETUP OPERATOR Work Phone: [facility] Start: 08-05-2022 ambulatory Sima Dumont APRN.TOOL MACHINE SETUP OPERATOR Work Phone: [facility] Start: 08-05-2022 Patient encounter procedure Alejandra Dumont APRN.TOOL MACHINE SETUP OPERATOR Work Phone: OB/Gynecology Comment on above: Appointment Start: 07-15-2022 Refill Alberto Georges MD Work Phone: Hematology/Oncology Comment on above: Refill Request Start: 07-09-2022 End: 07-09-2022 Patient encounter procedure Sima Dumont APRN.TOOL MACHINE SETUP OPERATOR Work Phone: OB/Gynecology Comment on above: Vagina itching (Prim teo Dx); Dysuria; Urinary frequency; Superficial dyspareunia; Mixed incontinence; Vaginal atrophy; Cystocele, midline; Long-term current use of tamoxifen Start: 07-08-2022 ambulatory Clifton allen MD Work Phone: 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 Gabino Hung Work Phone: [facility] Start: 07-07-2022 End: 07-07-[address] Clifton Hung Work Phone: [facility] Work Phone: Start: 07-07-2022 End: 07-07-[address] [facility] Start: 07-03-2022 ambulatory Clifton allen MD Work Phone: [facility] Comment on above: Infection Start: 06-30-2022 ambulatory Clifton allen MD Work Phone: [facility] Comment on above: A new issue Start: 06-30-2022 End: 06-30-2022 Patient encounter procedure Martha Montoya PA-C Work Phone: [facility] Comment on above: Nasal lesion (Primar y Dx) Start: 06-16-2022 ambulatory Clifton allen MD Work Phone: [facility] Comment on above: infection Start: 06-03-[address] Yolande Hung [facility] Start: 05-29-2022 Non-patient / Non-visit Dr. Gabino Hung Work Phone: [facility] Start: 05-28-2022 End: 05-28-[address] Clifton Hung Work Phone: [facility] Start: 05-28-2022 End: 05-28-[address] Clifton Hung Work Phone: [facility] Start: 04-03-2022 Patient encounter status Mahesh Hung MD Work Phone: [facility] Work Phone: Start: 03-09-2022 ambulatory Chad lance APRN.TOOL MACHINE SETUP OPERATOR Work Phone: Hematology/Oncology Comment on above: Tamoxifen Heartburn Start: 02-25-2022 End: 02-25-2022 ambulatory Chad Mariee APRN.TOOL MACHINE SETUP OPERATOR Work Phone: Hematology/Oncology Comment on above: Breast neoplasm, Tis (DCIS), left (Primary Dx) Start: 02-25-2022 End: 02-25-2022 Patient encounter procedure Chad Mariee APRN.TOOL MACHINE SETUP OPERATOR Work Phone: [facility] Start: 02-23-2022 Documentation procedure Mammog chidi Coordinator [facility] Start: 02-23-2022 Letter encounter Mammography Coordinator [facility] Department Start: 02-23-2022 End: 02-23-2022 Subsequent hospital visit by physician Screen Mammo [facility] Mammogram Comment on above: Breast neoplasm, Tis (DCIS), left [D05.12] Start: 02-10-2022 Refill Cherise MAYS-C Work Phone: [facility] [place] Comment on above: Refill Request Start: 05-26-2021 Ophthalmic examinati on and evaluation Cherise Sifuentes PA-C Work Phone: [facility] Start: 01-21-2021 Patient encounter status Haley RODRIGUEZC Work Phone: [facility] Work Phone: Start: 10-29-2016 Patient encounter status Haley Sifuentes PA-C Work Phone: [facility] Work Phone: Procedures Date Procedure Procedure Detail Performing Clinician Start: 04-24-2025 Urnls dip stick/tablet rgnt auto w/o microscopy Francine Madrid APRN.TOOL MACHINE SETUP OPERATOR Work Phone: Start: 04-19-2025 Adult depression screening assessment Cherise Sifuentes PA-C Work Phone: Start: 03-14-2025 Screening digital breast tomosynthesis bi Chad Mariee APRN.TOOL MACHINE SETUP OPERATOR Work Phone: Start: 08-15-2024 Ct abdomen w/o [...] Screening digital breast tomosynthesis bi Chad Mariee REED OR WIND INSTRUMENT REPAIRER.TOOL MACHINE SETUP OPERATOR Work Phone: Start: 01-18-2024 Smr prim src gram/giemsa stain bct fungi/cell Sima Dumont APRN.TOOL MACHINE SETUP OPERATOR Work Phone: Start: 01-18-2024 Urnls dip stick/tablet rgnt auto w/o microscopy Sima Dumont APRN.TOOL MACHINE SETUP OPERATOR Work Phone: Start: 01-03-2024 Magnetic resonance cholangiopancreatography [...] stick/tablet rgnt auto w/o microscopy Sima Dumont REED OR WIND INSTRUMENT REPAIRER.TOOL MACHINE SETUP OPERATOR Work Phone: Start: 02-24-2023 End: 02-24-2023 Mammography Chad Mariee REED OR WIND INSTRUMENT REPAIRER.TOOL MACHINE SETUP OPERATOR Work Phone: Start: 12-01-[address] Clifton Hung Work Phone: Start: 11-25-2022 Ct abdomen & pelvis w/contrast material Chad Mariee REED OR WIND INSTRUMENT REPAIRER.TOOL MACHINE SETUP OPERATOR Work Phone: Start: 11-14-2022 STREP A MOLECULAR (POC) Shaneka Yang REED OR WIND INSTRUMENT REPAIRER.TOOL MACHINE SETUP OPERATOR Work Phone: Start: 11-02-2022 COVID WITH FLUA+B, ROUTINE Shaneka Eder graham REED OR WIND INSTRUMENT REPAIRER.TOOL MACHINE SETUP OPERATOR Work Phone: Start: 10-28-2022 GUILLERMINA DIAG W [place] LEFT Chad Mariee REED OR WIND INSTRUMENT REPAIRER.TOOL MACHINE SETUP OPERATOR Work Phone: Start: 09-09-2022 Us abdominal real time w/image limited Clifton Hung MD Work Phone: Start: 09-03-2022 INFLUENZA SEASONAL QUADRIVALENT HIGH DOSE AGE 65+ Clifton Hung MD Work Phone: Start: 07-09-2022 BACTERIAL VAGINOSIS AMPLIFICATION Sima fagan REED OR WIND INSTRUMENT REPAIRER.TOOL MACHINE SETUP OPERATOR Work Phone: Start: 07-09-2022 Iadna trichomonas vaginalis amplified probe tech Sima Dumont APRN.TOOL MACHINE SETUP OPERATOR Work Phone: Start: 07-09-2022 Urnls dip stick/tablet rgnt auto w/o microscopy Sima Dumont APRN.TOOL MACHINE SETUP OPERATOR Work Phone: Start: 07-07-2022 Radionuclide imaging of perfusion of myocardium under exercise stress Dr. Clitfon Hung Work Phone: Start: 02-23-2022 End: 02-23-2022 [...] 06-19-2034 Screening for malignant neoplasm of colon [facility] Start: 04-22-2034 Urine microalbumin profile DTaP,Tdap,Td Vaccine (3 - Td or Tdap) [facility] Start: 08-09-2028 Colonoscopy COLONOSCOPY [facility] Start: 08-09-2028 COLORECTAL CANCER SCREENING COLORECTAL CANCER SCREENING [facility] Start: 08-09-2028 Screening for malignant neoplasm of colon [facility] Start: 04-24-2026 Annual PCP Team Chronic Disease Visit Annual PCP Team Chronic Disease Visit [facility] Start: 04-19-2026 Annual PCP Team Chronic Disease Visit Annual PCP Team Chronic Disease Visit [facility] Start: 04-19-2026 Anxiety Screening Anxiety Screening [facility] Start: 04-19-2026 Depression Screening Depression Screening [facility] Start: 04-19-2026 Diabetic foot examination Diabetic Foot Exam [facility] Start: 04-06-2026 Hepatitis B screening Urine Albumin:Creatinine Ratio [facility] Start: 04-06-2026 Hepatitis B surface antibody level LDL Cholesterol [facility] Start: 03-21-2026 End: 04-20-2026 DBT Breast - bilateral screening GUILLERMINA SCREENING W ANG[place]A Radiology Routine Ductal carcinoma in situ (DCIS) of left breast Encounter for screening mammogram for high-risk patient Expected: 03/21/2026 (Approximate), Expires: 04/20/2026 [facility] Work Phone: Comment on above: Expected: 03/21/2026 (Approximate), Expi res: 04/20/2026 Start: 03-21-2026 End: 03-21-2026 Patient encounter procedure 03/21/2026 8:10 AM EDT Appointment Mammogram [address] [place] [address] : 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]; Encounter for screening mammogram for high-risk patient [Z12.31] Mammogram Comment on above: : Ductal carcinoma in situ (DCIS) of lef t breast [D05.12]; Encounter for screening mammogram for high-risk patient [Z12.31] Start: 03-14-2026 Screening for malignant neoplasm of breast Mammogram Screening [facility] Start: 03-12-2026 End: 03-12-2026 Patient encounter procedure 03/12/2026 8:40 AM EDT Office Visit Endocrinology [address] [place] [id number] Alexa Matute MD [address] [place] [address] 1 yr f/u-review adrenal CT 02/20/26 Endocrinology Comment on above: 1 yr f/u-review adrenal CT 02/20/26 Start: 02-20-2026 End: 05-22-2026 Corticotropin [Mass/volume] in Plasma ACTH BLD Lab Routine Disorder of adrenal gland (HCC) Expected: 02/20/2026, Expires: 05/22/2026 [facility] Comment on above: Expected: 02/20/2026, Expires: Start: 02-20-2026 End: 04-15-2026 CT Adrenal gland WO and W contrast IV CT ADRENAL WO/W IVCON Radiology Routine Disorder of adrenal gland (HCC) Expected: 02/20/2026, Expires: 04/15/2026 [facility] Work Phone: Comment on above: Expected: 02/20/2026, Expires: Start: 02-20-2026 End: 05-22-2026 DHEA-S BLD DHEA-S BLD Lab Routine Disorder of adrenal gland (HCC) Expected: 02/20/2026, Expires: 05/22/2026 [facility] Comment on above: Expected: 02/20/2026, Expires: Start: 02-20-2026 End: 02-20-2026 Patient encounter procedure 02/20/2026 8:40 AM EDT Appointment Cat Scan [address] [place] [address] 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] Cat Scan Comment on above: 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] Start: 02-13-2026 End: 05-15-2026 Creatinine and Glomerular filtration rate.predicted panel - Serum, Plasma or Blood CREATININE BLD Lab Routine Disorder of adrenal gland (HCC) Expected: 02/13/2026, Expires: 05/15/2026 [facility] Comment on above: Expected: 02/13/2026, Expires: Start: 12-29-2025 Annual PCP Team Chronic Disease Visit Annual PCP Team Chronic Disease Visit [facility] Start: 10-23-2025 End: 10-23-2025 Patient encounter procedure 10/23/2025 9:20 AM EST Office Visit Family [facility] [address] [facility] [place] [address] Clifton Hung MD [address] [place] [address] 6 month f/u Family [facility] Comment on above: 6 month f/u Start: 10-19-2025 End: 01-18-2026 25-hydroxyvitamin D3 [Mass/volume] in Serum or Plasma VITAMIN D 25 HYDROXY Lab Routine Vitamin D deficiency Expected: 10/19/2025, Expires: 01/18/2026 [facility] Work Phone: Comment on above: Expected: 10/19/2025, Expires: Start: 10-19-2025 End: 01-18-2026 Basic metabolic 2000 panel - Serum or Plasma BASIC METABOLIC PANEL Lab Routine Controlled type 2 diabetes mellitus without complication, without long-term current use of insulin (HCC) Essential hypertension Expected: 10/19/2025, Expires: 01/18/2026 [facility] Comment on above: Expected: 10/19/2025, Expires: Start: 10-19-2025 End: 01-18-2026 Hemoglobin A1c in Blood HEMOGLOBIN A1C Lab Routine Controlled type 2 diabetes mellitus without complication, without long-term current use of insulin (HCC) Type 2 diabetes mellitus with hyperlipidemia (HCC) Expected: 10/19/2025, Expires: 01/18/2026 [facility] Comment on above: Expected: 10/19/2025, Expires: Start: 10-19-2025 End: 01-18-2026 LIPID PANEL, NONFASTING LIPID PANEL, NONFASTING Lab Routine Mixed hyperlipidemia Expected: 10/19/2025, Expires: 01/18/2026 [facility] Comment on above: Expected: 10/19/2025, Expires: Start: 10-19-2025 End: 01-18-2026 Magnesium [Mass/volume] in Serum or Plasma MAGNESIUM Lab Routine Hypomagnesemia Expected: 10/19/2025, Expires: 01/18/2026 [facility] Comment on above: Expected: 10/19/2025, Expires: Start: 10-18-2025 Annual PCP Team Chronic Disease Visit Annual PCP Team Chronic Disease Visit [facility] Start: 10-18-2025 BP Controlled (<130/80) BP Controlled (<130/80) [facility] in Start: 10-18-2025 Covid-19 Vaccine () Covid-19 Vaccine () [facility] Comment on above: Postponed from 07/09/2024 (Declined at t his time) Start: 10-14-2025 Hepatitis B surface antibody level LDL Cholesterol [facility] Start: 10-07-2025 Hemoglobin A1c measurement HbA1C [facility] Start: 09-29-2025 Glaucoma screening Dilated Retinal Exam [facility] Start: 09-22-2025 BP Controlled (<130/80) BP Controlled (<130/80) [facility] Start: 09-21-2025 End: 09-21-2025 ambulatory 09/21/2025 8:30 AM EST Visit (SP) Office Hematology/Oncology [address] [place] [address] Chad Mariee APRN.TOOL MACHINE SETUP OPERATOR [address] [place] [address] 6MO OV* Hematology/Oncology Comment on above: 6MO OV* Start: 08-21-2025 End: 08-21-2025 Patient encounter procedure 08/21/2025 8:40 AM EDT Office Visit [facility] [address] [place], [place] [address] Ori Lord DO [address] [place] [address] 6 month NEED NEW UA, NELL [facility] Comment on above: 6 month NEED NEW UA, NELL Start: 07-20-2025 End: 07-20-2025 Patient encounter procedure 07/20/2025 1:05 PM EDT Appointment Radiology [address] [place] [address] Dx: Long-term current use of tamoxifen [Z79.810]; Encounter for screening for osteoporosis [Z13.820]; Asymptomatic postmenopausal status [Z78.0] Radiology Comment on above: Dx: Long-term current use of tamoxifen [ Z79.810]; Encounter for screening for osteoporosis [Z13.820]; Asymptomatic postmenopausal status [Z78.0] Start: 07-11-2025 BP Controlled (<130/80) BP Controlled (<130/80) [facility] Start: 07-09-2025 Influenza vaccination [facility] Start: 07-04-2025 BP Controlled (<130/80) BP Controlled (<130/80) [facility] Start: 05-07-2025 Influenza [facility] Comment on above: Postponed from 07/09/2024 (Declined at t his time) Start: 05-01-2025 BP Controlled (<130/80) BP Controlled (<130/80) [facility] Start: 04-24-2025 End: 04-24-2025 Patient encounter procedure 04/24/2025 8:00 AM EDT Office Visit Family [facility] [address] [place] [place] [address] Francine Madrid APRN.TOOL MACHINE SETUP OPERATOR [address] [facility], [place] [id number] UTI symptoms; Pain urination, pelvic/back pain, urinary frequency [facility] Comment on above: UTI symptoms; Pain urination, pelvic/eugene k pain, urinary frequency Start: 04-19-2025 End: 04-19-2025 Patient encounter procedure 04/19/2025 9:00 AM EDT Office Visit [facility] [address] [facility] [place] [address] Cherise Sifuentes PA-C [address] [place], [place] [id number] Medicare wellness [facility] Comment on above: Medicare wellness Start: 04-17-2025 Annual PCP Team Chronic Disease Visit Annual PCP Team Chronic Disease Visit [facility] Start: 04-17-2025 Anxiety Screening Anxiety Screening [facility] Start: 04-17-2025 Covid-19 Vaccine () Covid-19 Vaccine () [facility] Comment on above: Postponed from 07/09/2023 (Declined at t his time) Start: 04-17-2025 Depression Screening Depression Screening [facility] Start: 04-17-2025 Diabetic foot examination Diabetic Foot Exam [facility] Start: 04-17-2025 Hepatitis B screening Urine Albumin:Creatinine Ratio [facility] Start: 04-17-2025 Hepatitis B surface antibody level LDL Cholesterol [facility] Start: 04-14-2025 Hemoglobin A1c measurement HbA1C [facility] Start: 04-09-2025 End: 04-09-2025 Patient encounter procedure 04/09/2025 9:30 AM EDT Office Visit OB/Gynecology [address] [place] [address] Sima Dumont APRN.TOOL MACHINE SETUP OPERATOR [address] [place] [address] Annual OB/Gynecology Comment on above: Annual Start: 04-06-2025 End: 07-06-2025 25-hydroxyvitamin D3 [Mass/volume] in Serum or Plasma VITAMIN D 25 HYDROXY Lab Routine Vitamin D deficiency Expected: 04/06/2025, Expires: 07/06/2025 [facility] Comment on above: Expected: 04/06/2025, Expires: Start: 04-06-2025 End: 07-06-2025 CBC W Auto Differential panel - Blood COMPLETE BLOOD COUNT AND DIFFERENTIAL Lab Routine Type 2 diabetes mellitus with hyperlipidemia (HCC) (HCC) Controlled type 2 diabetes mellitus without complication, without long-term current use of insulin (HCC) Expected: 04/06/2025, Expires: 07/06/2025 [facility] Comment on above: Expected: 04/06/2025, Expires: Start: 04-06-2025 End: 07-06-2025 Cobalamin (Vitamin B12) [Mass/volume] in Serum or Plasma VITAMIN B12 Lab Routine Medication management Gastroesophageal reflux disease without esophagitis Expected: 04/06/2025, Expires: 07/06/2025 [facility] Work Phone: Comment on above: Expected: 04/06/2025, Expires: Start: 04-06-2025 End: 07-06-2025 Comprehensive metabolic 2000 panel - Serum or Plasma COMPREHENSIVE METABOLIC PANEL Lab Routine Type 2 diabetes mellitus with hyperlipidemia (HCC) (HCC) Controlled type 2 diabetes mellitus without complication, without long-term current use of insulin (HCC) Essential hypertension Mixed hyperlipidemia Expected: 04/06/2025, Expires: 07/06/2025 [facility] Comment on above: Expected: 04/06/2025, Expires: Start: 04-06-2025 End: 07-06-2025 Hemoglobin A1c in Blood HEMOGLOBIN A1C Lab Routine Type 2 diabetes mellitus with hyperlipidemia (HCC) (HCC) Controlled type 2 diabetes mellitus without complication, without long-term current use of insulin (HCC) Expected: 04/06/2025, Expires: 07/06/2025 [facility] Comment on above: Expected: 04/06/2025, Expires: Start: 04-06-2025 End: 07-06-2025 LIPID PANEL, NONFASTING LIPID PANEL, NONFASTING Lab Routine Type 2 diabetes mellitus with hyperlipidemia (HCC) (HCC) Controlled type 2 diabetes mellitus without complication, without long-term current use of insulin (HCC) Essential hypertension Mixed hyperlipidemia Expected: 04/06/2025, Expires: 07/06/2025 [facility] Comment on above: Expected: 04/06/2025, Expires: Start: 04-06-2025 End: 07-06-2025 Magnesium [Mass/volume] in Serum or Plasma MAGNESIUM Lab Routine Medication management Gastroesophageal reflux disease without esophagitis Expected: 04/06/2025, Expires: 07/06/2025 [facility] Comment on above: Expected: 04/06/2025, Expires: Start: 04-06-2025 End: 07-06-2025 Microalbumin/Creatinine [Mass Ratio] in Urine ALBUMIN/CREATININE RATIO, URINE Lab Routine Controlled type 2 diabetes mellitus without complication, without long-term current use of insulin (HCC) Expected: 04/06/2025, Expires: 07/06/2025 [facility] Comment on above: Expected: 04/06/2025, Expires: Start: 04-06-2025 End: 07-06-2025 Urinalysis complete panel - Urine URINALYSIS, WITH MICROSCOPIC Lab Routine Type 2 diabetes mellitus with hyperlipidemia (HCC) (HCC) Controlled type 2 diabetes mellitus without complication, without long-term current use of insulin (HCC) Essential hypertension Mixed hyperlipidemia Expected: 04/06/2025, Expires: 07/06/2025 [facility] Comment on above: Expected: 04/06/2025, Expires: Start: 04-06-2025 End: 04-06-2025 ambulatory [facility] Start: 03-27-2025 Glaucoma screening Dilated Retinal Exam [facility] Start: 03-22-2025 Annual PCP Team Chronic Disease Visit Annual PCP Team Chronic Disease Visit [facility] Start: 05-15-2025 BP Controlled (<130/80) BP Controlled (<130/80) [facility] Start: 03-21-2025 End: 03-21-2025 ambulatory 03/21/2025 8:00 AM EDT Visit (SP) Office Hematology/Oncology [address] [place] [address] Chad Mariee APRN.TOOL MACHINE SETUP OPERATOR [address] [place] [address] 6 MTH OV/MAMM 03/14* R/S FROM 03/20 Hematology/Oncology Comment on above: 6 MTH OV/MAMM 03/14* R/S FROM 03/20 Start: 03-20-2025 End: 03-20-2025 ambulatory 03/20/2025 8:00 AM EDT Visit (SP) Office Hematology/Oncology [address] [place] [address] Chad Mariee APRN.TOOL MACHINE SETUP OPERATOR [address] [place] [address] 6 MTH OV* Hematology/Oncology Comment on above: 6 MTH OV* Start: 03-16-2025 End: 06-15-2025 Thyrotropin [Units/volume] in Serum or Plasma THYROID STIMULATING HORMONE Lab Routine Cold intolerance Expected: 03/16/2025, Expires: 06/15/2025 [facility] Comment on above: Expected: 03/16/2025, Expires: Start: 03-16-2025 End: 03-16-2025 Patient encounter procedure 03/16/2025 8:40 AM EDT Office Visit Endocrinology [address] [place] [address] Alexa Matute MD [address] [place] [address] 4 wk f/u-adrenal Endocrinology Comment on above: 4 wk f/u-adrenal Start: 03-14-2025 End: 10-14-2025 DBT Breast - bilateral screening GUILLERMINA SCREENING [facility] Radiology Routine Ductal carcinoma in situ (DCIS) of left breast Encounter for screening mammogram for high-risk patient Expected: 03/14/2025 (Approximate), Expires: 10/14/2025 [facility] Work Phone: Comment on above: Expected: 03/14/2025 (Approximate), Expi res: 10/14/2025 Start: 03-14-2025 End: 03-14-2025 Patient encounter procedure 03/14/2025 7:30 AM EDT Appointment Mammogram [address] [place] [address] MAMMO [facility] Mammogram Comment on above: MAMMO [facility] Start: 03-09-2025 Screening for malignant neoplasm of breast Mammogram Screening [facility] Start: 02-21-2025 End: 02-21-2025 ambulatory 02/21/2025 9:30 AM EDT Results Only [facility] [address] [place] [address] [facility] Start: 02-19-2025 End: 02-19-2025 Patient encounter procedure 02/19/2025 8:40 AM EDT Office Visit [facility] [address] [place] [address] [id number] Ori Lord DO [address] [place] [id number] 6 mo f/u [facility] Comment on above: 6 mo f/u Start: 02-16-2025 End: 05-18-2025 Corticotropin [Mass/volume] in Plasma ACTH BLD Lab Routine Adenoma of right adrenal gland Expected: 02/16/2025, Expires: 05/18/2025 [facility] Comment on above: Expected: 02/16/2025, Expires: Start: 02-16-2025 End: 05-18-2025 Cortisol [Mass/volume] in Serum or Plasma --post dose dexamethasone CORTISOL SUPRES POST Lab Routine Adenoma of right adrenal gland Expected: 02/16/2025, Expires: 05/18/2025 [facility] Comment on above: Expected: 02/16/2025, Expires: Start: 02-16-2025 End: 05-18-2025 DEXAMETHASONE DEXAMETHASONE Lab Routine Adenoma of right adrenal gland Expected: 02/16/2025, Expires: 05/18/2025 [facility] Work Phone: Comment on above: Expected: 02/16/2025, Expires: Start: 02-14-2025 End: 02-14-2025 Patient encounter procedure 02/14/2025 9:20 AM EDT Office Visit [facility] [address] [place] [address] Ori Lord DO [address] [place] [address] 6 mo f/u [facility] Comment on above: 6 mo f/u Start: 02-09-2025 End: 02-09-2025 Patient encounter procedure 02/09/2025 9:20 AM EDT Office Visit Endocrinology [address] [place] [address] Alexa Matute MD [address] [place] [address] 2 month follow up Endocrinology Comment on above: 2 month follow up Start: 02-02-2025 End: 02-02-2025 Patient encounter procedure 02/02/2025 10:00 AM EDT Office Visit [facility] [address] [place] [address] Ori Lord DO [address] [place], [place] [address] 6 mo f/u [facility] Comment on above: 6 mo f/u Start: 01-13-2025 Annual PCP Team Chronic Disease Visit Annual PCP Team Chronic Disease Visit [facility] Start: 01-06-2025 Glaucoma screening Dilated Retinal Exam [facility] Start: 12-31-2024 Annual PCP Team Chronic Disease Visit Annual PCP Team Chronic Disease Visit [facility] Start: 11-23-2024 Annual PCP Team Chronic Disease Visit Annual PCP Team Chronic Disease Visit [facility] Start: 11-08-2024 Advance Directive Discussion Advance Directive Discussion [facility] Start: 11-03-2024 End: 02-02-2025 Corticotropin [Mass/volume] in Plasma ACTH BLD Lab Routine Adenoma of right adrenal gland Expected: 11/03/2024, Expires: 02/02/2025 [facility] Comment on above: Expected: 11/03/2024, Expires: Start: 11-03-2024 End: 11-03-2024 Patient encounter procedure 11/03/2024 8:40 AM EST Office Visit Endocrinology [address] [place] [address] Alexa Matute MD [address] [place] [address] 4 wk f/u (soonest) Endocrinology Comment on above: 4 wk f/u (soonest) Start: 10-18-2024 End: 10-18-2024 Patient encounter procedure 10/18/2024 9:20 AM EST Office Visit Family Israel [place] [address] [place] [address] Clifton Hung MD [address] [place] [address] 6 month follow up Family Isreal [place] Comment on above: 6 month follow up Start: 10-17-2024 Hemoglobin A1c measurement HbA1C [facility] Start: 10-13-2024 End: 01-12-2025 25-hydroxyvitamin D3 [Mass/volume] in Serum or Plasma VITAMIN D 25 HYDROXY Lab Routine Vitamin D deficiency Expected: 10/13/2024, Expires: 01/12/2025 [facility] Work Phone: Comment on above: Expected: 10/13/2024, Expires: Start: 10-13-2024 End: 01-12-2025 Basic metabolic 2000 panel - Serum or Plasma BASIC METABOLIC PANEL Lab Routine Controlled type 2 diabetes mellitus without complication, without long-term current use of insulin ([facility]) Vitamin D deficiency Mixed hyperlipidemia Expected: 10/13/2024, Expires: 01/12/2025 [facility] Comment on above: Expected: 10/13/2024, Expires: Start: 10-13-2024 End: 01-12-2025 Hemoglobin A1c in Blood HEMOGLOBIN A1C Lab Routine Controlled type 2 diabetes mellitus without complication, without long-term current use of insulin ([facility]) Expected: 10/13/2024, Expires: 01/12/2025 [facility] Comment on above: Expected: 10/13/2024, Expires: Start: 10-13-2024 End: 01-12-2025 LIPID PANEL, NONFASTING LIPID PANEL, NONFASTING Lab Routine Mixed hyperlipidemia Expected: 10/13/2024, Expires: 01/12/2025 [facility] Comment on above: Expected: 10/13/2024, Expires: Start: 10-08-2024 Annual PCP Team Chronic Disease Visit Annual PCP Team Chronic Disease Visit [facility] Start: 10-03-2024 End: 10-03-2024 ambulatory 10/03/2024 8:15 AM EST Results Only [facility] [address] [place] [address] Lab Part 2 [facility] Comment on above: Lab Part 2 Start: 09-29-2024 Hepatitis B surface antibody level LDL Cholesterol [facility] Start: 09-22-2024 End: 12-22-2024 ALDOSTERONE/DIRECT RENIN RATIO ALDOSTERONE/DIRECT RENIN RATIO Lab Routine Adenoma of right adrenal gland Expected: 09/22/2024, Expires: 12/22/2024 [facility] Work Phone: Comment on above: Expected: 09/22/2024, Expires: Start: 09-22-2024 End: 12-22-2024 Corticotropin [Mass/volume] in Plasma ACTH BLD Lab Routine Adenoma of right adrenal gland Expected: 09/22/2024, Expires: 12/22/2024 [facility] Comment on above: Expected: 09/22/2024, Expires: Start: 09-22-2024 End: 12-22-2024 Cortisol [Mass/volume] in Serum or Plasma --post dose dexamethasone CORTISOL SUPRES POST Lab Routine Adenoma of right adrenal gland Expected: 09/22/2024, Expires: 12/22/2024 [facility] Comment on above: Expected: 09/22/2024, Expires: Start: 09-22-2024 End: 12-22-2024 DEXAMETHASONE DEXAMETHASONE Lab Routine Adenoma of right adrenal gland Expected: 09/22/2024, Expires: 12/22/2024 [facility] Comment on above: Expected: 09/22/2024, Expires: Start: 09-22-2024 End: 12-22-2024 DHEA-S BLD DHEA-S BLD Lab Routine Adenoma of right adrenal gland Expected: 09/22/2024, Expires: 12/22/2024 [facility] Comment on above: Expected: 09/22/2024, Expires: Start: 09-22-2024 End: 12-22-2024 Potassium [Moles/volume] in Serum or Plasma POTASSIUM Lab Routine Adenoma of right adrenal gland Expected: 09/22/2024, Expires: 12/22/2024 [facility] Comment on above: Expected: 09/22/2024, Expires: Start: 09-22-2024 End: 09-22-2024 Patient encounter procedure 09/22/2024 9:20 AM EST Office Visit Endocrinology [address] [place] [address] Alexa Matute MD [address] [place] [address] follow up Endocrinology Comment on above: follow up Start: 09-14-2024 End: 09-14-2024 ambulatory 09/14/2024 9:00 AM EST Visit (SP) Office Hematology/Oncology [address] [place] [id number] Chad Mariee APRN.TOOL MACHINE SETUP OPERATOR [address] [place] [address] 6MO OV* Hematology/Oncology Comment on above: 6MO OV* Start: 08-15-2024 End: 08-15-2024 Patient encounter procedure 08/15/2024 9:00 AM EDT Appointment Cat Scan [address] [place] [address] 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.01]; 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] Cat Scan Comment on above: 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.01]; 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] Start: 08-08-2024 End: 08-08-2024 ambulatory 08/08/2024 8:15 AM EDT Results Only Laurent [facility] [address] [place] [address] [facility] Comment on above: Lab for CT Start: 08-04-2024 End: 08-04-2024 Patient encounter procedure 08/04/2024 10:00 AM EDT Office Visit [facility] [address] [place] [address] Ori Lord [address] [address] cysto 1 mo [facility] Comment on above: cysto 1 mo Start: 07-23-2024 BP Controlled (<130/80) BP Controlled (<130/80) [facility] Start: 07-11-2024 End: 10-10-2024 CREATININE BLD CREATININE BLD Lab Routine Adenoma of right adrenal gland Expected: 07/11/2024, Expires: 10/10/2024 [facility] Comment on above: Expected: 07/11/2024, Expires: Start: 07-11-2024 End: 07-11-2024 Patient encounter procedure 07/11/2024 1:00 PM EDT Office Visit Endocrinology [address] [place] [address] Alexa Matute MD [address] [facility] [address] 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.01] Endocrinology Comment on above: 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.01] Start: 07-09-2024 Covid-19 Vaccine () Covid-19 Vaccine () [facility] Start: 07-09-2024 Covid-19 Vaccine () Covid-19 Vaccine () [facility] Start: 07-09-2024 Influenza vaccination Influenza Vaccine (#1) [facility] Start: 07-04-2024 End: 07-04-2024 Patient encounter procedure [facility] Comment on above: 6 wk FU Start: 05-23-2024 Glaucoma screening Dilated Retinal Exam [facility] Start: 05-23-2024 Hepatitis C antibody, confirmatory test DILATED RETINAL EXAM [facility] Start: 05-23-2024 End: 05-23-2024 Patient encounter procedure 05/23/2024 11:40 AM EDT Office Visit [facility] [address] [place] [address] Ori Landin [address] [place] [id number] f/u for pelvic [facility] Comment on above: f/u for pelvic Start: 04-17-2024 End: 07-17-2024 25-hydroxyvitamin D3 [Mass/volume] in Serum or Plasma [facility] Work Phone: Comment on above: Expected: 04/17/2024, Expires: Start: 04-17-2024 End: 04-17-2024 Patient encounter procedure 04/17/2024 8:40 AM EDT Office Visit Family [facility] [place] [address] [place], [place] [id number] Francine Madrid APRN.[facility] [address] [place] [address] 3 month follow up Family Medicine [facility] Comment on above: 3 month follow up Start: 04-08-2024 3 comp foot exam completed DIABETIC FOOT EXAM [facility] Start: 04-08-2024 ANNUAL PCP TEAM CHRONIC DISEASE VISIT ANNUAL PCP TEAM CHRONIC DISEASE VISIT [facility] Start: 04-08-2024 BP CONTROLLED (<130/80) BP CONTROLLED (<130/80) [facility] Start: 04-08-2024 Diabetic foot examination Diabetic Foot Exam [facility] Start: 04-02-2024 Hepatitis B screening URINE ALBUMIN:CREATININE RATIO [facility] Start: 04-02-2024 Hepatitis B surface antibody level LDL CHOLESTEROL [facility] Start: 03-29-2024 Hemoglobin A1c measurement HbA1C [facility] Start: 03-29-2024 Hemoglobin A1c/Hemoglobin.total in Blood HbA1C [facility] Start: 03-14-2024 End: 03-14-2024 ambulatory 03/14/2024 10:00 AM EDT Visit (SP) Office Hematology/Oncology [address] [place] [address] Chad Mariee APRN.TOOL MACHINE SETUP OPERATOR [address] [place] [address] 7 MO OV/MAMM 5/2* Hematology/Oncology Comment on above: 7 MO OV/MAMM 5/2* Start: 03-09-2024 End: 03-09-2024 Patient encounter procedure 03/09/2024 8:30 AM EDT Appointment Mammogram [address] [place] [address] Mammogram Start: 02-25-2024 Mammography [facility] Start: 02-25-2024 Screening for malignant neoplasm of breast Mammogram Screening [facility] Start: 02-24-2024 Urine microalbumin profile [facility] Start: 02-10-2024 ANNUAL PCP TEAM CHRONIC DISEASE VISIT ANNUAL PCP TEAM CHRONIC DISEASE VISIT [facility] Start: 02-10-2024 BP CONTROLLED (<130/80) BP CONTROLLED (<130/80) [facility] Start: 02-06-2024 BP CONTROLLED (<130/80) BP CONTROLLED (<130/80) [facility] Start: 01-17-2024 End: 04-17-2024 C peptide [Mass/volume] in Serum or Plasma C-PEPTIDE BLD Lab Routine Hyperglycemia Pancreatic insufficiency Expected: 01/17/2024, Expires: 04/17/2024 [facility] Work Phone: Comment on above: Expected: 01/17/2024, Expires: 4 Start: 01-17-2024 End: 04-17-2024 Glutamate decarboxylase 65 Ab [Units/volume] in Serum GLUTAMIC AC DECARBOXYLASE AB Lab Routine Hyperglycemia Pancreatic insufficiency Expected: 01/17/2024, Expires: 04/17/2024 [facility] Work Phone: Comment on above: Expected: 01/17/2024, Expires: Start: 12-28-2023 [facility] Start: 12-28-2023 Respiratory secretion precautions [facility] Start: 12-22-2023 [facility] Start: 12-09-2023 BP CONTROLLED (<130/80) BP CONTROLLED (<130/80) [facility] Start: 11-08-2023 Advance Directive Discussion Advance Directive Discussion [facility] Start: 11-08-2023 Behavioral Health Screening Behavioral Health Screening [facility] Start: 11-08-2023 Depression Assessment Depression Assessment [facility] Start: 10-05-2023 ANNUAL PCP TEAM CHRONIC DISEASE VISIT ANNUAL PCP TEAM CHRONIC DISEASE VISIT [facility] Start: 10-03-2023 Hemoglobin A1c/Hemoglobin.total in Blood HBA1C [facility] Start: 09-24-2023 End: 11-24-2023 Hemoglobin A1c in Blood HGB A1C Lab Routine Controlled type 2 diabetes mellitus without complication, without long-term current use of insulin (HCC) Expected: 09/24/2023, Expires: 11/24/2023 [facility] Work Phone: Comment on above: Expected: 09/24/2023, Expires: 4 Start: 09-24-2023 End: 11-24-2023 LIPID PANEL, NONFASTING LIPID PANEL, NONFASTING Lab Routine Controlled type 2 diabetes mellitus without complication, without long-term current use of insulin (HCC) Essential hypertension Mixed hyperlipidemia 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) Expected: 09/24/2023, Expires: 11/24/2023 [facility] Work Phone: Comment on above: Expected: 09/24/2023, Expires: 4 Start: 09-15-2023 Hepatitis B surface antibody level LDL CHOLESTEROL [facility] Start: 09-11-2023 [facility] Start: 09-03-2023 ANNUAL PCP TEAM CHRONIC DISEASE VISIT ANNUAL PCP TEAM CHRONIC DISEASE VISIT [facility] Start: 09-03-2023 BP CONTROLLED (<130/80) BP CONTROLLED (<130/80) [facility] Start: 08-28-2023 BP CONTROLLED (<130/80) BP CONTROLLED (<130/80) [facility] Start: 07-09-2023 BP CONTROLLED (<130/80) BP CONTROLLED (<130/80) [facility] Start: 07-09-2023 Covid-19 Vaccine ( season) Covid-19 Vaccine () [facility] Start: 06-30-2023 BP CONTROLLED (<130/80) BP CONTROLLED (<130/80) [facility] Start: 05-30-2023 Hepatitis C antibody, confirmatory test DILATED RETINAL EXAM [facility] Start: 04-04-2023 End: 06-04-2023 25-hydroxyvitamin D3 [Mass/volume] in Serum or Plasma VITAMIN D 25 HYDROXY Lab Routine Vitamin D deficiency Expected: 04/04/2023, Expires: 06/04/2023 [facility] Work Phone: Comment on above: Expected: 04/04/2023, Expires: 3 Start: 04-04-2023 End: 06-04-2023 ALBUMIN/CREAT RATIO RND UR ALBUMIN/CREAT RATIO RND UR Lab Routine Controlled type 2 diabetes mellitus without complication, without long-term current use of insulin (HCC) Expected: 04/04/2023, Expires: 06/04/2023 [facility] Work Phone: Comment on above: Expected: 04/04/2023, Expires: 3 Start: 04-04-2023 End: 06-04-2023 CBC W Auto Differential panel - Blood CBC + DIFF Lab Routine Controlled type 2 diabetes mellitus without complication, without long-term current use of insulin (HCC) Expected: 04/04/2023, Expires: 06/04/2023 [facility] Work Phone: Comment on above: Expected: 04/04/2023, Expires: 3 Start: 04-04-2023 End: 06-04-2023 Comprehensive metabolic 2000 panel - Serum or Plasma COMP METABOLIC PANEL Lab Routine Essential hypertension Controlled type 2 diabetes mellitus without complication, without long-term current use of insulin (HCC) Expected: 04/04/2023, Expires: 06/04/2023 [facility] [facility] Work Phone: Comment on above: Expected: 04/04/2023, Expires: Start: 04-04-2023 End: 06-04-2023 Hemoglobin A1c in Blood HGB A1C Lab Routine Controlled type 2 diabetes mellitus without complication, without long-term current use of insulin (HCC) Expected: 04/04/2023, Expires: 06/04/2023 [facility] Work Phone: Comment on above: Expected: 04/04/2023, Expires: 3 Start: 04-04-2023 End: 06-04-2023 LIPID PANEL, NONFASTING LIPID PANEL, NONFASTING Lab Routine Mixed hyperlipidemia Expected: 04/04/2023, Expires: 06/04/2023 [facility] Work Phone: Comment on above: Expected: 04/04/2023, Expires: 3 Start: 04-04-2023 End: 06-04-2023 Urinalysis complete panel - Urine URINALYSIS, WITH MICROSCOPIC Lab Routine Essential hypertension Controlled type 2 diabetes mellitus without complication, without long-term current use of insulin (HCC) Expected: 04/04/2023, Expires: 06/04/2023 [facility] Work Phone: Comment on above: Expected: 04/04/2023, Expires: 3 Start: 04-03-2023 3 comp foot exam completed DIABETIC FOOT EXAM [facility] Start: 04-03-2023 ANNUAL PCP TEAM CHRONIC DISEASE VISIT ANNUAL PCP TEAM CHRONIC DISEASE VISIT [facility] Start: 04-03-2023 BP CONTROLLED (<130/80) BP CONTROLLED (<130/80) [facility] Start: 03-30-2023 Hepatitis B screening URINE ALBUMIN:CREATININE RATIO [facility] Start: 03-30-2023 Hepatitis B surface antibody level LDL CHOLESTEROL [facility] Start: 03-15-2023 Hemoglobin A1c/Hemoglobin.total in Blood HBA1C [facility] Start: 02-25-2023 BP CONTROLLED (<130/80) BP CONTROLLED (<130/80) [facility] Start: 02-23-2023 Mammography MAMMOGRAM [facility] Start: 01-16-2023 COVID-19 VACCINE (6 - Moderna series) COVID-19 VACCINE (6 - Moderna series) [facility] Start: 12-01-2022 Colonoscopy w/biopsy single/multiple COLONOSCOPY AND BIOPSY [facility] Start: 12-01-2022 Egd transoral biopsy single/multiple EGD BIOPSY SINGLE/MULTIPLE [facility] Start: 12-01-2022 Patient discharge [facility] Start: 11-08-2022 ADVANCE DIRECTIVE DISCUSSION ADVANCE DIRECTIVE DISCUSSION [facility] Start: 11-08-2022 DEPRESSION ASSESSMENT DEPRESSION ASSESSMENT [facility] Start: 09-30-2022 Hemoglobin A1c/Hemoglobin.total in Blood HBA1C [facility] Start: 09-26-2022 ANNUAL PCP TEAM CHRONIC DISEASE VISIT ANNUAL PCP TEAM CHRONIC DISEASE VISIT [facility] Start: 09-16-2022 Hepatitis B surface antibody level LDL CHOLESTEROL [facility] Start: 09-03-2022 End: 11-03-2022 Amylase [Enzymatic activity/volume] in Serum or Plasma [facility] Work Phone: Comment on above: Expected: 09/03/2022, Expires: 2 Start: 09-03-2022 End: 11-03-2022 CBC W Auto Differential panel - Blood [facility] Work Phone: Comment on above: Expected: 09/03/2022, Expires: 2 Start: 09-03-2022 End: 11-03-2022 Helicobacter pylori [Quantitative] in Stomach by urea breath test BREATH TEST H PYLORI Lab Routine Epigastric pain Expected: 09/03/2022, Expires: 11/03/2022 [facility] Work Phone: Comment on above: Expected: 09/03/2022, Expires: 2 Start: 09-03-2022 End: 11-03-2022 Hepatic function 2000 panel - Serum or Plasma [facility] Work Phone: Comment on above: Expected: 09/03/2022, Expires: 2 Start: 09-03-2022 End: 11-03-2022 Lipase [Enzymatic activity/volume] in Serum or Plasma [facility] Work Phone: Comment on above: Expected: 09/03/2022, Expires: 2 Start: 2022 ADVANCE DIRECTIVE DISCUSSION ADVANCE DIRECTIVE DISCUSSION [facility] Start: 2022 PNEUMOCOCCAL (3 - PPSV23 or PCV20) PNEUMOCOCCAL (3 - PPSV23 or PCV20) [facility] Start: 2022 PNEUMOCOCCAL: 65+ (3 - PPSV23 if available, else PCV20) PNEUMOCOCCAL: 65+ (3 - PPSV23 if available, else PCV20) [facility] Start: 2022 PNEUMOCOCCAL: 65+ (3 - PPSV23 or PCV20) PNEUMOCOCCAL: 65+ (3 - PPSV23 or PCV20) [facility] Start: 06-30-2022 End: 08-30-2022 Bacteria identified in Wound by Culture [facility] Work Phone: Comment on above: Expected: 06/30/2022, Expires: 2 Start: 06-30-2022 End: 08-30-2022 Herpes simplex virus+Varicella zoster virus DNA [Presence] in Unspecified specimen by MICHAEL with probe detection [facility] Work Phone: Comment on above: Expected: 06/30/2022, Expires: 2 Start: 05-26-2022 3 comp foot exam completed DIABETIC FOOT EXAM [facility] Start: 05-24-2022 Hepatitis C antibody, confirmatory test DILATED RETINAL EXAM [facility] Start: 05-12-2022 Adult depression screening assessment DEPRESSION SCREENING [facility] Start: 03-16-2022 Hemoglobin A1c/Hemoglobin.total in Blood HBA1C [facility] Start: 02-21-2022 Mammography MAMMOGRAM [facility] Start: 01-18-2022 Hepatitis B screening URINE ALBUMIN:CREATININE RATIO [facility] Start: 12-26-2021 COVID-19 VACCINE (5 - Booster for Moderna series) COVID-19 VACCINE (5 - Booster for Moderna series) [facility] Start: 11-08-2021 DEPRESSION ASSESSMENT DEPRESSION ASSESSMENT [facility] Start: 07-08-2018 FECAL OCCULT BLOOD FECAL OCCULT BLOOD [facility] Start: 07-08-2018 Screening for malignant neoplasm of colon Fecal Occult Blood [facility] Start: 10-25-2017 End: 10-25-2017 Appointment Appointment [facility] Work Phone: Start: 07-22-2017 End: 07-22-2017 Appointment Appointment [facility] Work Phone: Start: 07-22-2017 End: 07-22-2017 Follow Up Appt 3 months Follow Up Appt 3 months [facility] [employer] [facility] Work Phone: Start: 07-22-2017 End: 07-22-2017 MMM MMM [facility] Phone: Start: 07-22-2017 End: 07-22-2017 Follow Up Appt 3 months Follow Up Appt 3 months [facility] [employer] [facility] Work Phone: Start: 07-22-2017 End: 07-22-2017 MMM MMM [facility] Phone: Start: 2017 Hepatitis B Vaccine (1 of 3 - Risk 3-dose series) Hepatitis B Vaccine (1 of 3 - Risk 3-dose series) [facility] Start: 2017 RSV Vaccine (1 - 1-dose 60+ series) RSV Vaccine (1 - 1-dose 60+ series) [facility] Start: 04-23-2017 End: 04-23-2017 Follow Up Appt 3 months Follow Up Appt 3 months [facility] Work Phone: Start: 04-23-2017 End: 04-23-2017 MMM MMM [facility] Work Phone: Start: 04-23-2017 End: 04-23-2017 Pulmonary Function Test - complete Pulmonary Function Test - complete [facility] Work Phone: Start: 04-23-2017 End: 04-23-2017 Appointment Appointment [facility] Work Phone: Start: 04-23-2017 End: 04-23-2017 Follow Up Appt 3 months Follow Up Appt 3 months [facility] Work Phone: Start: 04-23-2017 End: 04-23-2017 MMM MMM [facility] Work Phone: Start: 04-23-2017 End: 04-23-2017 Pulmonary Function Test - complete Pulmonary Function Test - complete [facility] Work Phone: Start: 03-31-2017 End: 04-01-2017 Echocardiography Echocardiogram (complete) [facility] Work Phone: Start: 03-31-2017 End: 04-01-2017 Nuclear stress test -Lexiscan Nuclear stress test -Lexiscan [facility] Work Phone: Start: 03-31-2017 End: 04-19-2017 Echocardiography Echocardiogram (complete) [facility] Work Phone: Start: 03-31-2017 End: 04-19-2017 Nuclear stress test -Lexiscan Nuclear stress test -Lexiscan [facility] Work Phone: Start: 02-19-2017 End: 01-20-2017 *Hepatic Function Panel *Hepatic Function Panel [facility] Work Phone: Start: 02-19-2017 End: 04-21-2017 Lipid panel [AGGREGATE] *Lipid Profile CC PCP [facility] Work Phone: Start: 02-19-2017 End: 01-20-2017 *Hepatic Function Panel *Hepatic Function Panel [facility] Work Phone: Start: 02-19-2017 End: 04-21-2017 Lipid panel [AGGREGATE] *Lipid Profile CC PCP [facility] Work Phone: Start: 01-20-2017 End: 04-19-2017 [facility] [address] [place], [address] [facility] Phone: Start: 01-20-2017 End: 01-20-2017 Cardiovascular stress test using treadmill Treadmill stress test (no imaging) [facility] Phone: Start: 01-20-2017 End: 01-20-2017 Follow Up Appt 3 months Follow Up Appt 3 months [email or web address] Phone: Start: 01-20-2017 End: 01-20-2017 PFM PF [facility] Phone: Start: 01-20-2017 End: 04-19-2017 [facility] [address], [address] [facility] Phone: Start: 01-20-2017 End: 01-20-2017 Cardiovascular stress test using treadmill Treadmill stress test (no imaging) [facility] Phone: Start: 01-20-2017 End: 01-20-2017 Follow Up Appt 3 months Follow Up Appt 3 months [email or web address] Phone: Start: 01-20-2017 End: 01-20-2017 PFM [id number] [facility] Phone: Start: 2002 COLOGUARD (FIT-DNA) COLOGUARD (FIT-DNA) [facility] Start: [address] COLONOGRAPHY [facility] Start: 2002 Screening for malignant neoplasm of colon [facility] Start: 2002 SIGMOIDOSCOPY SIGMOIDOSCOPY [facility] Start: 1975 BP CONTROLLED (<130/80) BP CONTROLLED (<130/80) [facility] inic Amylase [Enzymatic activity/volume] in Serum or Plasma [facility] Bacteria identified in Urine by Culture URINE CULTURE Microbiology Routine Dysuria 07/09/2022 9:15 AM [facility] Work Phone: Bacteria identified in Urine by Culture URINE CULTURE Microbiology Routine Dysuria Urine frequency 07/23/2023 11:49 AM [facility] Work Phone: Bacteria identified in Urine by Culture URINE CULTURE Microbiology Routine Dysuria Urinary frequency [facility]/18[facility] Bacteria identified in Urine by Culture URINE CULTURE Microbiology Routine Abnormal urinalysis 04/19/2024 10:59 AM [facility] Work Phone: Bacteria identified in Urine by Culture URINE CULTURE Microbiology Routine Microscopic hematuria 04/25/2024 10:51 AM [facility] Work Phone: Bacteria identified in Urine by Culture URINE CULTURE Microbiology Routine Urinary incontinence, mixed Ordered: 05/23/2024 [facility] Work Phone: Comment on above: Ordered: 05/23/2024 Bacteria identified in Urine by Culture BACTERIAL CULTURE, URINE Microbiology Routine Urinary tract infection with hematuria, site unspecified 04/24/2025 8:01 AM [facility] Work Phone: BACTERIAL VAGINOSIS AMPLIFICATION BACTERIAL VAGINOSIS AMPLIFICATION Lab Routine Vaginal discharge Ordered: 12/09/2022 [facility] Work Phone: Comment on above: Ordered: 12/09/2022 End: 05-09-2026 BD DXA TRABECULAR BONE SCORE (TBS) BD DXA TRABECULAR BONE SCORE (TBS) Radiology Routine Long-term current use of tamoxifen Encounter for screening for osteoporosis Asymptomatic postmenopausal status 1 Occurrences starting 04/09/2025 until 05/09/2026 [facility] Comment on above: 1 Occurrences starting 04/09/2025 until 05/09/2026 C peptide [Mass/volu me] in Serum or Plasma C-PEPTIDE BLD Lab Routine Hyperglycemia Pancreatic insufficiency 01/18/2024 2:48 PM [facility] Work Phone: CHINO / TRICHOMONA S AMPLIFICATION CHINO / TRICHOMONAS AMPLIFICATION Microbiology Routine Vaginal discharge Ordered: 12/09/2022 [facility] Work Phone: Comment on above: Ordered: 12/09/2022 Cardiac event recording [facility] Work Phone: COVID & INFLUENZA A/ B & RSV PCR, ROUTINE COVID & INFLUENZA A/B & RSV PCR, ROUTINE Microbiology Routine Acute cough Ordered: 12/29/2024 [facility] Work Phone: Comment on above: Ordered: 12/29/2024 CREATININE, 24 HOUR URINE CREATI NINE, 24 HOUR URINE Lab Routine Adenoma of right adrenal gland Ordered: 11/03/2024 [facility] Comment on above: Ordered: 11/03/2024 End: 09-27-2023 Ct abdomen & pelvis w/contrast material CT ABD/PEL W IVCON Radiology Routine Breast neoplasm, Tis (DCIS), left Nausea Pain of upper abdomen 1 Occurrences starting 08/28/2022 until 09/27/2023 [facility] Work Phone: Comment on above: 1 Occurrences starting 08/28/2022 until 09/27/2023 End: 10-16-2023 Ct abdomen & pelvis w/contrast material CT ABD/PEL W IVCON Radiology Routine Abnormal CT of the abdomen Liver 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 1 Occurrences starting 09/16/2022 until 10/16/2023 [facility] Work Phone: Comment on above: 1 Occurrences starting 09/16/2022 until 10/16/2023 End: 08-10-2025 CT Adrenal gland WO and W contrast IV CT ADRENAL WO/W IVCON Radiology Routine 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) 1 Occurrences starting 07/11/2024 until 08/10/2025 [facility] Work Phone: Comment on above: 1 Occurrences starting 07/11/2024 until 08/10/2025 End: 09-27-2023 CT CHEST W IVCON CT CHEST W IVCON Radiology Routine Breast neoplasm, Tis (DCIS), left Nausea Pain of upper abdomen 1 Occurrences starting 08/28/2022 until 09/27/2023 [facility] Work Phone: Comment on above: 1 Occurrences starting 08/28/2022 until 09/27/2023 Cystourethroscopy CYSTO.PANENDO Procedures Routine Urinary incontinence, mixed Microscopic hematuria Ordered: 08/04/2024 [facility] Work Phone: Comment on above: Ordered: 08/04/2024 End: 10-16-2023 Diagnostic mammography computer-aided detcj uni GUILLERMINA DIAGNOSTIC LT Radiology Routine Ductal carcinoma in situ (DCIS) of left breast Abnormal CT of the chest 1 Occurrences starting 09/16/2022 until 10/16/2023 [facility] Work Phone: Comment on above: 1 Occurrences starting 09/16/2022 until 10/16/2023 End: 05-09-2026 DXA Skeletal system.axial Views for bone density DXA-AXIAL SKELETON Radiology Routine Long-term current use of tamoxifen Encounter for screening for osteoporosis Asymptomatic postmenopausal status 1 Occurrences starting 04/09/2025 until 05/09/2026 [facility] Work Phone: Comment on above: 1 Occurrences starting 04/09/2025 until 05/09/2026 Glutamate decarboxyl ase 65 Ab [Units/volume] in Serum GLUTAMIC AC DECARBOXYLASE AB Lab Routine Hyperglycemia Pancreatic insufficiency 01/18/2024 2:48 PM EDT [facility] Work Phone: Helicobacter pylori [Quantitative] in Stomach by urea breath test BREATH TEST H PYLORI Lab Routine Epigastric pain 09/08/2022 9:24 AM EDT [facility] Work Phone: Lipase measurement [facility] End: 03-27-2024 GUILLERMINA SCREENING W ANGELA GUILLERMINA SCREENING W ANGELA Radiology Routine Ductal carcinoma in situ (DCIS) of left breast Encounter for screening mammogram for high-risk patient 1 Occurrences starting 02/26/2023 until 03/27/2024 [facility] Work Phone: Comment on above: 1 Occurrences starting 02/26/2023 until 03/27/2024 Microscopic observat ion [Identifier] in Vaginal fluid by Gram stain BACT/CHINO VAG GRAM STAIN Microbiology Routine Vaginal discharge Vulvovaginal discomfort 07/23/2023 11:49 AM EDT [facility] Work Phone: Patient Education [facility] Work Phone: Patient referral [facility] Work Phone: End: 09-27-2023 Screening mammography bi 2-view breast inc cad GUILLERMINA SCREENING Radiology Routine Breast neoplasm, Tis (DCIS), left Encounter for screening mammogram for high-risk patient 1 Occurrences starting 08/28/2022 until 09/27/2023 [facility] Work Phone: Comment on above: 1 Occurrences starting 08/28/2022 until 09/27/2023 URINE FREE CORTISOL BY LC-MS/MS URINE FREE CORTISOL BY LC-MS/MS Lab Routine Adenoma of right adrenal gland Ordered: 11/03/2024 [facility] Work Phone: Comment on above: Ordered: 11/03/2024 End: 10-03-2023 Us abdominal real time w/image limited US ABD RT UPPER QUADRANT Radiology Routine Epigastric pain 1 Occurrences starting 09/03/2022 until 10/03/2023 [facility] Work Phone: Comment on above: 1 Occurrences starting 09/03/2022 until 10/03/2023 End: 10-16-2023 Us breast uni real time with image limited US BREAST LTD LT Radiology Routine Ductal carcinoma in situ (DCIS) of left breast Abnormal CT of the chest 1 Occurrences starting 09/16/2022 until 10/16/2023 [facility] Work Phone: Comment on above: 1 Occurrences starting 09/16/2022 until 10/16/2023 [facility] Immunizations Immunization Date Immunization Notes Care Provider Fa thania 04-22-2024 tetanus toxoid, redu andres diphtheria toxoid, and acellular pertussis vaccine, adsorbed Cherise MAYS-C Work Phone: [facility] 12-09-2023 respiratory syncytia l virus (RSV) vaccine, adjuvanted (AREXVY) Cherise MAYS-C Work Phone: [facility] 10-26-2023 influenza (HD-IIV4) vaccine, age 65+ yr, high dose, quadrivalent, PF (FLUZONE HIGH-DOSE) Clifton Hung MD Work Phone: [facility] 10-26-2023 influenza virus vacc ine, unspecified formulation Ori Kenyon Quanugkelby Work Phone: [facility] 10-05-2022 pneumococcal polysaccharide vaccine, 23 valent Cherise MAYS-C Work Phone: [facility] 09-18-2022 COVID-19 booster vaccine, age 12+ yr, bivalent (MODERNA) Cherise MAYS-C Work Phone: [facility] 09-03-2022 influenza, high-dose , quadrivalent vaccine (FLUZONE HIGH DOSE QUADRIVALENT) Clifton Hung MD Work Phone: [facility] 09-01-2021 influenza, injectabl e, quadrivalent, contains preservative Cherise MAYS-C Work Phone: [facility] 12-20-2020 COVID-19 vaccine, fu ll dose (MODERNA) Cherise MAYS-C Work Phone: [facility] 11-19-2020 COVID-19 vaccine, fu ll dose (MODERNA) Cherise MAYS-C Work Phone: [facility] 10-12-2020 zoster vaccine recombinant Cherise MAYS-C Work Phone: [facility] 05-12-2020 zoster vaccine recombinant Cherise Sifuentes PA-C Work Phone: [facility] 04-12-2020 zoster vaccine recombinant Cherise Sifuentes PA-C Work Phone: [facility] 11-19-2019 COVID-19 vaccine, fu ll dose (MODERNA) Cherise Sifuentes PA-C Work Phone: [facility] 09-07-2017 influenza, seasonal, injectable Cherise RODRIGUEZC Work Phone: [facility] 06-28-2017 pneumococcal polysaccharide vaccine, 23 valent Cherise Sifuentes PA-C Work Phone: [facility] 10-05-2016 influenza, injectabl e, quadrivalent, preservative free Dr. Clifton Hung Work Phone: [facility] 10-05-2016 influenza, seasonal, injectable Dr. lCifton Hung Work Phone: [facility] 09-04-2016 influenza, seasonal, injectable Cherise MAYS-C Work Phone: [facility] 01-16-2016 pneumococcal conjuga te vaccine, 13 valent Cherise MAYS-C Work Phone: [facility] Work Phone: 09-19-2014 influenza, seasonal, injectable Cherise MAYS-C Work Phone: [facility] 02-23-2014 tetanus toxoid, redu andres diphtheria toxoid, and acellular pertussis vaccine, adsorbed Cherise MAYS-C Work Phone: [facility] 10-20-2013 influenza virus vacc ine, unspecified formulation Cherise MAYS-C Work Phone: [facility] 08-08-2009 pneumococcal polysaccharide vaccine, 23 valent Cherise MAYS-C Work Phone: [facility] Work Phone: Payers Date Payer Category Payer Self-pay [id number] 2022 Medicare HUMANA MEDICARE HUMANA MEDICARE PPO [id number] 2022-[facility] [phone] [place] [address] PPO [id number] 2022 Medicare (Managed Care) POLO LO [id number] 2022 Medicare [id number] 2013 Unknown [id number] 2009 Unknown [employer] CARD PPO OOS [id number] 2009-Present [phone] [address] [place] [address] PPO [id number] 2009 Unknown [employer] BLUE CARD PPO OOS [id number] 2009-Present [phone] [address] [place] [address] PPO [id number] 1957 Unknown [id number] Medicare MEDICARE PART A B [id number] Unknown [id number] Unknown [id number] Unknown [id number] Unknown [id number] Unknown [id number] Unknown [id number] Unknown [id number] Unknown [id number] Unknown [id number] Unknown [id number] Unknown [id number] Unknown [id number] Unknown [id number] Unknown [id number] Social History Date Type Detail Facility Start: 07-21-2013 End: 07-04-2024 Tobacco smoking status NHIS Ex-smoker [facility] Start: 11-08-1991 End: 11-08-1994 History of tobacco use Current smoker [facility] Start: 11-08-1991 End: 11-08-1994 History of tobacco use Cigarette Smoker [facility] Start: 07-21-2013 End: 04-08-2023 Cigarettes smoked current (pack per day) - Reported 1.5 [facility] Start: 07-21-2013 End: 07-04-2024 Tobacco use and exposure Smokeless tobacco non-user [facility] Start: 10-22-2021 End: 04-19-2025 Alcohol intake Current non-drinker of alcohol (finding) [facility] Start: 09-25-2020 End: 09-29-2022 History SDOH Alcohol Frequency 1 [facility] Start: 09-25-2020 History SDOH Alcohol Std Drinks 98 [facility] Start: 05-20-2020 End: 09-25-2020 History SDOH Social Connections Phone 4 [facility] Start: 04-08-2020 End: 09-29-2022 History SDOH Social Connections Get Together 2 [facility] Start: 04-08-2020 End: 09-29-2022 History SDOH Social Connections Sikhism 3 [facility] Start: 04-08-2020 End: 09-29-2022 History SDOH Physical Activity DPW 0 [facility] Start: 04-07-2020 Education 21 [facility] [facility] Start: 07-21-2013 End: 06-30-2022 Tobacco Comment smoked 3 years in mid 90s [facility] Start: 1955 Sex Assigned At Female C [facility] Start: 02-13-2022 End: 10-05-2022 Exposure to SARS-CoV-2 (event) Not sure [facility] Start: 05-28-2022 End: 12-28-2023 Tobacco smoking status NHIS Unknown if ever smoked [facility] Start: 06-30-2017 None [facility] Start: 01-04-2017 Spouse/ Signif icant Other [facility] Start: 03-31-2021 Non-smoker [facility] Start: 09-29-2022 History SDOH Financial 5 [facility] Start: 09-28-2022 End: 04-08-2023 Social connection and isolation panel [facility] Do you belong to any clubs or organizations such as yazdanism groups, unions, fraternal or athletic groups, or school groups? Yes [facility] Are you now , , , , never or living with a partner? [facility] How often to you hav e a drink containing alcohol? Never [facility] How many standard drinks containing alcohol do you have on a typical day? Patient does not drink [facility] Do you feel stress - tense, restless, nervous, or anxious, or unable to sleep at night because your mind is troubled all the time - these days [OSQ] Not at all [facility] (I/We) worried wheth er (my/our) food would run out before (I/we) got money to buy more. Never true [facility] In the past 12 month s, was there a time when you were not able to pay the mortgage or rent on time? No [facility] Start: 01-16-2019 Gender identity Identifies as female gender (finding) [facility] Start: 01-16-2019 Sexual orientation Heterosexual (vu lo) [facility] How hard is it for y ou to pay for the very basics like food, housing, medical care, and heating Not very hard [facility] Do you feel stress - tense, restless, nervous, or anxious, or unable to sleep at night because your mind is troubled all the time - these days [OSQ] To some extent [facility] NEGATED: Highlighted row [facility] Goals Date Patient Goal Desired Activity /State Functional Status Date Assessment Result Facility 04-18-2025 Total score [AUDIT-C] 0 04/18/20 25 10:17 AM EDT UserJose [facility] 04-18-2025 How often to you hav e a drink containing alcohol? Never 04/18/2025 10:17 AM EDT User, Aleksandrat Never [facility] 04-18-2025 Functional status Patient does n ot drink 04/18/2025 10:17 AM EDT UserJose Patient does not drink [facility] 04-18-2025 How often do you hav e 6 or more drinks on 1 occasion? Never 04/18/2025 10:17 AM EDT UserJose Never [facility] 03-08-2015 Are you deaf, or do you have serious difficulty hearing No 03/08/2015 11:23 AM Apurva Lu Cma No [facility] 03-08-2015 Are you blind, or do you have serious difficulty seeing, even when wearing glasses No 03/08/2015 11:23 AM Apurva Lu Cma No [facility] 03-08-2015 Do you have serious difficulty walking or climbing stairs No 03/08/2015 11:23 AM Apurva Lu Cma No [facility] 03-08-2015 Do you have difficul ty dressing or bathing No 03/08/2015 11:23 AM Apurva Lu Cma No [facility] 03-08-2015 Because of a physica l, mental, or emotional condition, do you have difficulty doing errands alone such as visiting a physician's office or shopping No 03/08/2015 11:23 AM EDApurva Gracia Cma No [facility] Mental Status Date Assessment Result Facility 12-28-2023 Cognitive function Level Of Cons ciousness Awake;Alert;Appropriate [facility] Work Phone: 12-22-2023 Cognitive function Level Of Cons ciousness Awake;Alert;Appropriate;Fol lows Commands [facility] Work Phone: 09-11-2023 Cognitive function Level Of Cons ciousness Awake;Alert;Appropriate;Fol lows Commands [facility] Work Phone: 12-01-2022 Cognitive function Voice/Name [facility] Work Phone: 03-08-2015 Because of a physica l, mental, or emotional condition, do you have serious difficulty concentrating, remembering, or making decisions No 03/08/2015 11:23 AM Apurva Lu Cma No [facility] Clinical Notes 12-09-2016 to 05-17-2025 Neil Chacko CPhT - 05/17/2025 7:52 AM REYNALDOTPNicole ritter CPhT - 05/14/2025 11:06 AM EDTTelephone Encounter - Ori Moody MA - 04/26/2025 1:59 PM EDTPatient InstructionsPatient Instructions Note Date & Type Note Facility 05-17-2025 Note HNO ID: [id number] Author: NEIL CHACKO CPhT Service: ? Author Type: Amphibian Crewmember Type: Progress Notes Filed: 05/17/2025 07:54 Note Text: Patient is identified through a medication adherence outreach initiative based on pharmacy claims data from: [facility] Medication Adherence Category: Diabetes Second Attempt Medication(s) pioglitazone 15 mg due 04/01/25, filled 01/02/25 for 90 days Medication Status per portal/Epic Reconcile Dispense: Not filled Medication Status per Profile Review: No issues per profile review Patient identified by name and Outreach to patient: Sent/Responded to [employer] What was primary intervention? LVM on 05/14/25, sent [employer] H2 message Neil Chacko CPhT Value Based Care Pharmacy Team [facility] 05-17-2025 History of Present illness Narrative Patient is identified through a medication adherence outreach initiative based on pharmacy claims data from: [facility] Medication Adherence Category: Diabetes Second Attempt Medication(s) pioglitazone 15 mg due 04/01/25, filled 01/02/25 for 90 days Medication Status per portal/Epic Reconcile Dispense: Not filled Medication Status per Profile Review: No issues per profile review Patient identified by name and Outreach to patient: Sent/Responded to [employer] What was primary intervention? LVM on 05/14/25, sent [employer] H2 message Neil Chacko CPhT [facility] Based Care Pharmacy Team documented in this encounter [facility] 05-17-2025 Note Patient Outreach ( POJOHN) ---- DOM AVILA ([id number]) 1955 F Date Time Provider Department 05/17/25 CLIFTON HUNG During your visit today, we recorded the following information about you: Neil Chacko CPhT 05/17/2025 7:54 AM Signed Patient is identified through a medication adherence outreach initiative based on pharmacy claims data from: [facility] Medication Adherence Category: Diabetes Second Attempt Medication(s) pioglitazone 15 mg due 04/01/25, filled 01/02/25 for 90 days Medication Status per portal/Epic Reconcile Dispense: Not filled Medication Status per Profile Review: No issues per profile review Patient identified by name and Outreach to patient: Sent/Responded to [employer] What was primary intervention? LVM on 05/14/25, sent [employer] H2 message Neil Chacko CPhT Value Based Care [...] 100 mg by mouth once daily. - wiozlj-pmlvectp-odvcycp (CREON 36) 36,000-114,000- 180,000 unit delayed release [...] 2 diabetes mellitus without com*10/22/2016 Atherosclerosis of [place] coronary artery with *01/09/2017 S/P angioplasty with [...] office [Z78.*04/08/2023 Advanc (more content not included)... [facility] 05-14-2025 Note HNO ID: [id number] Author: NICOLE SEXTON CPhT Service: ? Author Type: Amphibian Crewmember Type: Progress Notes Filed: 05/14/2025 11:18 Note Text: Patient is identified through a medication adherence outreach initiative based on pharmacy claims data from: [facility] Medication Adherence Category: Diabetes First Review Attribution [...] Sexton CPhT Value Based Care Pharmacy Team [facility] 05-14-2025 History of Present illness Narrative Patient is identified through a medication adherence outreach initiative based on pharmacy claims data from: [facility] Medication Adherence Category: Diabetes First Review Attribution [...] Care Pharmacy Team documented in this encounter [facility] 05-14-2025 Note Patient Outreach ( POHE) ---- AUSTINDOM Vel ([id number]) 1955 F Date Time Provider Department 05/14/25 CLIFTON HUNG During your visit today, we recorded the following information about you: Nicole Sexton CPhT 05/14/2025 11:18 AM Signed Patient is identified through a medication adherence outreach initiative based on pharmacy claims data from: [facility] Medication Adherence Category: Diabetes First Review Attribution [...] 100 mg by mouth once daily. - ehbrvs-uficrffr-tqagylh (CREON 36) 36,000-114,000- 180,000 unit delayed release [...] 2 diabetes mellitus without com*10/22/2016 Atherosclerosis of [place] coronary artery with *01/09/2017 S/P angioplasty with [...] file at physician's (more content not included)... [facility] 04-26-2025 Telephone encounter Note Pt notified and verbalized understanding Ori Moody MA [facility] 04-26-2025 Miscellaneous Notes Pt notified and verbalized understanding Ori Moody MA Please let patient know her culture is positive for bacterial growth and she should continue current antibiotics. documented in this encounter [facility] 04-26-2025 Telephone encounter Note Please let patient know her culture is positive for bacterial growth and she should continue current antibiotics. [facility] 04-24-2025 Note HNO ID: [id number] Author: FRANCINE MADRID APRN.CNP Service: ? 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 Hysterectomy at age 41 Uterine polyp No longer an issue Vitamin D deficiency 2012 Well adult exam 01/16/2016 Last done: 09/08/2018 Previous Surgical History PAST SURGICAL HISTORY Procedure Laterality Date 2D ECHO (EXEP) 06/30/2017 EF=65%, trivial FL, TI and 1+ PI Unchanged from 04/2017 2D ECHO (EXEP) 05/14/2021 EF=60%, 1+ TI, trival FL, AI, PI 2D ECHO (EXEP) 09/16/2021 EF=60%, [...] cancer) Mother Coronary Artery Disease Father 25 FL @ 25. CABG Diabetes Father Diabetes Paternal Grandmother Diabetes Maternal Grandfather other (Lung cancer) Brother other (suicide) Son may of been depression Patient Allergies ALLERGIES Allergen Reactions (more content not included)... 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 yAsha Laurent with ocular symptoms S/P angioplasty with stent 01/09/2017 stents to mid and proximal left anterior descending Art, and angio of ostium of #2 diagonal Scalp itch Seasonal allergies Dr [place] Type 2 diabetes mellitus with hyperlipidemia ([facility]) 04/17/2024 Uterine fibroid 1994? Hysterectomy at age 41 Uterine polyp No longer an issue Vitamin D deficiency 2012 Well adult exam 01/16/2016 Last done: 09/08/2018 Previous Surgical History PAST SURGICAL HISTORY Procedure Laterality Date 2D ECHO (EXEP) 06/30/2017 EF=65%, trivial FL, TI and 1+ PI Unchanged from 04/2017 2D ECHO (EXEP) 05/14/2021 EF=60%, 1+ TI, trival FL, AI, PI 2D ECHO (EXEP) 09/16/2021 EF=60%, [...] cancer) Mother Coronary Artery Disease Father 25 FL @ 25. CABG Diabetes Father Diabetes Paternal Grandmother Diabetes Maternal Grandfather other (Lung cancer) Brother other (suicide) Son may of been depression Patient Allergies ALLERGIES Allergen Reactions Brilinta [Ticagrelo* Shortness of Breath Crestor [Rosuvastat* Myalgia Keflex [Cephalexin] Other: See Comments facial flushing Lipitor [Atorvastat* Other: See Comments myalgia Lovastatin Other: See Comments myalgia [place] [Hydrocodone-* Itching Current Medications Current Outpatient Medications [...] Take 100 mg by mouth once daily. hcmyex-ouqtwsnz-uejkimg (CREON 36) 36,000-114,000- 180,000 unit delayed release [...] & MACROCRYSTAL 100 MG ORAL CAP Francine aMdrid APRN.TOOL MACHINE SETUP OPERATOR documented in this encounter [facility] 04-19-2025 Instructions Cherise Sifuentes PA-C [...] review all the medicines you take, even xpnf-nuo-vfukywd medicines. As you get older, the way [...] certain medical conditions. documented in this encounter [facility] 04-19-2025 Note HNO ID: [id number] Author: CHERISE SIFUENTES PA-C Service: ? 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 Hysterectomy at age 41 Uterine polyp No longer an issue Vitamin D deficiency 2013 Well adult exam 01/16/2016 Last done: 09/08/2018 Previous (more content not included)... 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 Has been on provigil for 5-10 yrs Obstructive sleep apnea on CPAP Sibilia Other skin changes 09/26/2021 Seeing derm Pancreatic insufficiency ([facility]) 04/08/[address] Alcantar Psoriasis RLS (restless legs syndrome) 02/22/[address] Aysha Laurent with ocular symptoms S/P angioplasty with stent 01/09/2017 stents to mid and proximal left anterior descending Art, and angio of ostium of #2 diagonal Scalp itch Seasonal allergies Dr Pompa Type 2 diabetes mellitus with hyperlipidemia ([facility]) 04/17/2024 Uterine fibroid 1994? Hysterectomy at age 41 Uterine polyp No longer an issue Vitamin D deficiency 2012 Well adult exam 01/16/2016 Last done: 09/08/2018 Previous Surgical History PAST SURGICAL HISTORY Procedure Laterality Date 2D ECHO (EXEP) 06/30/2017 EF=65%, trivial FL, TI and 1+ PI Unchanged from 04/2017 2D ECHO (EXEP) 05/14/2021 EF=60%, 1+ TI, trival FL, AI, PI 2D ECHO (EXEP) 09/16/2021 EF=60%, [...] cancer) Mother Coronary Artery Disease Father 25 FL @ 25. CABG Diabetes Father Diabetes Paternal Grandmother Diabetes Maternal Grandfather other (Lung cancer) Brother other (suicide) Son may of been depression Patient Allergies ALLERGIES Allergen Reactions Brilinta [Ticagrelo* Shortness of Breath Crestor [Rosuvastat* Myalgia Keflex [Cephalexin] Other: See Comments facial flushing Lipitor [Atorvastat* Other: See Comments myalgia Lovastatin Other: See Comments myalgia [place] [Hydrocodone-* Itching Current Medications Current Outpatient Medications [...] Take 100 mg by mouth once daily. jotzqi-mncyvjal-wgefqee (CREON 36) 36,000-114,000- 180,000 unit delayed release [...] Abs Lymph 1.00 - 4.00 k/uL 2.26 [place]% % 8.5 Abs [place] <0.87 k/uL 0.73 Eosin% % 1.4 Abs Eosin <0.46 k/uL 0.12 Baso% % 0.3 Abs Baso <0.11 k/uL 0.03 Immature Gran % % 0.3 IMMATURE GRANS (ABS) <0.10 k/uL 0.03 NRBC /100 WBC 0.0 Absolute nRBC <0.01 k/uL <0.01 DTYPE Auto Color Yellow Yellow Clarity Clear Clear Glucose, Urine Negative Negative Bilirubin, Urine Negative Negative Ketones, Urine Negative Negative Specific [place], Ur 1.005 - 1.030 1.014 Hemoglobin/Blood,Ur Negative [...] G25.81 No new concerns 11. Atherosclerosis 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 pectoris - ICD9: [...] making components. I have reviewed the Physician Trading Assistant (PA) student's documentation and verified the findings in the note as written. Any additions or changes are noted in bold/italics. Cherise Sifuentes PA-C I spent a total of 40 minutes on the date of the service which included preparing to see the patient, luul-[id number] patient care, completing clinical documentation, obtaining and/or reviewing separately obtained history, performing a medically appropriate examination, counseling and educating the patient/family/caregiver, ordering medications, tests, or procedures, communicating with other HCPs (not separately reported), and communicating results to the patient/family/caregiver. documented in this encounter [facility] 04-12-2025 Note HNO ID: [id number] Author: ?, ?, ? Service: ? Author [...] Caro Cassidy April 12, 2025 9:35 AM [facility] 04-12-2025 History of Present illness Narrative POPULATION [...] 2025 9:35 AM documented in this encounter [facility] 04-12-2025 Note Patient Outreach (NE TNAV) ---- DOM AVILA ([id number]) 1955 F Date Time Provider Department 04/12/25 [...] MyChart message sent HCC related Navigation Signature: aCro Cassidy April 12, 2025 9:35 AM Allergies [...] Date Reviewed: 04/09/2025 Reviewed by: Sima Dumont APRN.TOOL MACHINE SETUP OPERATOR - Fully Assessed Reason for Visit: Population Health Navigation Outreach [3910] Cmt: Polo Myoa Prescriptions as of 04/12/2025 - estradiol (ESTRACE) [...] 100 mg by mouth once daily. - nqkfmy-myockwvb-jieqxrw (CREON 36) 36,000-114,000- 180,000 unit delayed release [...] 2 diabetes mellitus without com*10/22/2016 Atherosclerosis of [place] coronary artery with *01/09/2017 S/P angioplasty with [...] Medication management [Z79.899] (more content not included)... [facility] 04-09-2025 Instructions Sima Dumont APRN.ELIZABETH - 04/09/2025 [...] usual activities immediately. documented in this encounter [facility] 04-09-2025 Note HNO ID: [id number] Author: SIMA DUMONT APRN.TOOL MACHINE SETUP OPERATOR Service: ? Author Type: Nurse Practitioner Type: Progress Notes Filed: 04/09/2025 09:59 Note Text: Exhibitions Curator offered: Patient declines. Dom is a 69 year old who presents for an annual gynecologic exam without complaints. Nodule on adrenal gland - seeing before school. 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 Hysterectomy at age 41 Uterine polyp No longer an issue Vitamin D deficiency 2012 Well adult exam 01/16/2016 Last done: 09/08/2018 PAST SURGICAL HISTORY Procedure Laterality Date 2D ECHO (EXEP) 06/30/2017 EF=65%, trivial FL, TI and 1+ PI Unchanged from 04/2017 2D ECHO (EXEP) 05/14/2021 EF=60%, 1+ TI, trival FL, AI, PI 2D ECHO (EXEP) 09/16/2021 EF=60%, [...] tunnel PAST SURGICAL (more content not included)... [facility] 04-09-2025 History of Present illness Narrative Exhibitions Curator offered: Patient declines. Raza is a 69 year old who presents for an annual gynecologic exam without complaints. Nodule on adrenal gland - seeing before school. 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 Has been on provigil for 5-10 yrs Obstructive sleep apnea on CPAP Sibilia Other skin changes 09/26/2021 Seeing derm Pancreatic insufficiency ([facility]) 04/08/[address] Ortiz [place] RLS (restless legs syndrome) 02/22/[address] Aysha Laurent with ocular symptoms S/P angioplasty with stent 01/09/2017 stents to mid and proximal left anterior descending Art, and angio of ostium of #2 diagonal Scalp itch Seasonal allergies Dr Pompa Type 2 diabetes mellitus with hyperlipidemia ([facility]) 04/17/2024 Uterine fibroid 1994? Hysterectomy at age 41 Uterine polyp No longer an issue Vitamin D deficiency 2013 Well adult exam 01/16/2016 Last done: 09/08/2018 PAST SURGICAL HISTORY Procedure Laterality Date 2D ECHO (EXEP) 06/30/2017 EF=65%, trivial FL, TI and 1+ PI Unchanged from 04/2017 2D ECHO (EXEP) 05/14/2021 EF=60%, 1+ TI, trival FL, AI, PI 2D ECHO (EXEP) 09/16/2021 EF=60%, [...] cancer) Mother Coronary Artery Disease Father 25 FL @ 25. CABG Diabetes Father Diabetes Paternal [...] discussed with the Patient or Patient's Authorized Airline Reservationist. As applicable, any other physician, advance practice provider, medical student, or other health professional student that will be observing or involved in the sensitive examination for educational or training purposes was discussed with the Patient or Authorized Airline Reservationist. The Patient or Authorized Airline Reservationist has agreed to proceed with the sensitive [...] external genitalia normal, normal Bartholin's glands, urethra, Sabina's glands, no vulvar lesions, good vaginal support, [...] 4 - Moderate documented in this encounter [facility] 04-04-2025 Note HNO ID: [id number] Author: ROCCO RENDON RN Service: ? Author [...] Rendon RN April 04, 2025 1:25 PM [facility] 04-04-2025 History of Present illness Narrative Value [...] 2025 1:25 PM documented in this encounter [facility] 04-04-2025 Note Patient Outreach ([facility]) ---- [place] ([id number]) 1955 F Date Time Provider Department 04/04/25 [...] Date Reviewed: 03/21/2025 Reviewed by: Chad Mariee APRN.TOOL MACHINE SETUP OPERATOR - Fully Assessed Reason for Visit: Pharyngitis [...] 100 mg by mouth once daily. - avmiiq-mxxcnopp-ssjsgzy (CREON 36) 36,000-114,000- 180,000 unit delayed release [...] 2 diabetes mellitus without com*10/22/2016 Atherosclerosis of [place] coronary artery with *01/09/2017 S/P angioplasty with [...] reflux disease withou (more content not included)... [facility] [place] 03-21-2025 Note HNO ID: [id number] Author: CHAD MARIEE APRN.TOOL MACHINE SETUP OPERATOR Service: ? Author Type: Nurse Practitioner Type: Progress Notes Filed: 03/22/2025 13:28 Note Text: Chief Complaint Patient presents with: Established Patient HPI: Dom Avila is a 69 year old female who presents here today for follow up DCIS. Per Dr. Georges previous note: H/o usw-jpbtihv-wzrbaygfz diabetes mellitus, hypertension, ASCAD, and TIA who [...] breast lumpectomy for DCIS on 04/08/2021 at [facility] Pathology (from [facility]) reveals - ductal carcinoma in situ...,size of DCIS - 1.0 x 0.4 cm...,architectural type - cribriform..., nuclear grade 1-2..., necrosis - present central (expansive comedo necrosis)..., biopsy cavity is 0.5 cm from closest anterior margin (which is skin)..., ER >95%, NC >95% Postoperative course is unremarkable with no [...] Skin:denies rashes/lesions Heme:denies bleeding, over due for MILITARY AIRCRAFT DESIGNER exam The ROS is otherwise negative. Past [...] March 2026. - Continue follow up with PCP/GI/Cards/MILITARY AIRCRAFT DESIGNER. - Needs follow up/yearly pelvic with [employer]ARY AIRCRAFT DESIGNER-Marck Dumont CNP. - Follow up in 6 months. - Pt. aware to call office with any questions/concerns. The patient indicates understanding of these issues and agrees with the plan. All documentation from previous visit of 09/14/24-Dr. Georges/myself was copied and pasted, documentation has been reviewed and edited as necessary for today's visit. Chad Mariee APRN.TOOL MACHINE SETUP OPERATOR [facility] [place] 03-21-2025 History of Present illness Narrative Chief Complaint Patient presents with: Established Patient HPI: Dom Avila is a 69 year old female who presents here today for follow up DCIS. Per Dr. Georges previous note: H/o zle-tnvzjjv-nvvgyjzhc diabetes mellitus, hypertension, ASCAD, and TIA who [...] breast lumpectomy for DCIS on 04/08/2021 at [facility] Pathology (from [facility]) reveals - ductal carcinoma in situ...,size of DCIS - 1.0 x 0.4 cm...,architectural type - cribriform..., nuclear grade 1-2..., necrosis - present central (expansive comedo necrosis)..., biopsy cavity is 0.5 cm from closest anterior margin (which is skin)..., ER >95%, NC >95% Postoperative course is unremarkable with no [...] Skin:denies rashes/lesions Heme:denies bleeding, over due for MILITARY AIRCRAFT DESIGNER exam The ROS is otherwise negative. Past [...] March 2026. - Continue follow up with PCP/GI/Cards/MILITARY AIRCRAFT DESIGNER. - Needs follow up/yearly pelvic with MILITARY AIRCRAFT DESIGNER-Marck Dumont CNP. - Follow up in 6 months. - Pt. aware to call office with any questions/concerns. The patient indicates understanding of these issues and agrees with the plan. All documentation from previous visit of 09/14/24-Dr. Georges/myself was copied and pasted, documentation has been reviewed and edited as necessary for today's visit. Chad Mariee APRN.ELIZABETH documented in this encounter [facility] 03-16-2025 Instructions Alexa Matute MD - 03/16/2025 8:49 AM EDT Please do CT adrenal in one year from now. Hold metformin for 2 days before the imaging scan We shall also do lab work next year February 2026 documented in this encounter [facility] 03-16-2025 Note HNO ID: [id number] Author: ALEXA MATUTE MD Service: ? 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 Has been on provigil for 5-10 yrs Obstructive sleep apnea on CPAP Sibilia Other skin changes 09/26/2021 Seeing derm Pancreatic insufficiency ([facility]) 04/08/[address] Ortiz [place] RLS (restless legs syndrome) 02/22/[address] Aysha Laurent with ocular symptoms S/P angioplasty with stent 01/09/2017 stents to mid and proximal left anterior descending Art, and angio of ostium of #2 diagonal Scalp itch Seasonal allergies Dr Pompa Type 2 diabetes mellitus with hyperlipidemia ([facility]) 04/17/2024 Vitamin D deficiency 2013 Well adult exam 01/16/2016 Last done: 09/08/2018 Surgical History: PAST SURGICAL HISTORY Procedure Laterality Date 2D ECHO (EXEP) 06/30/2017 EF=65%, trivial FL, TI and 1+ PI Unchanged from 04/2017 2D ECHO (EXEP) 05/14/2021 EF=60%, 1+ TI, trival FL, AI, PI 2D ECHO (EXEP) 09/16/2021 EF=60%, [...] 04/08/2021 PAST HERNANDEZ (more content not included)... 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 CABG Diabetes Father Diabetes Paternal [...] Comments myalgia Lovastatin Other: See Comments myalgia [place] [Hydrocodone-* Itching Current medications: Current Outpatient Medications [...] Take 100 mg by mouth once daily. qcuacn-bshcvykv-yazyslq (CREON 36) 36,000-114,000- 180,000 unit delayed release [...] 500 - 1400 mg/d 800 Cortisol ug/g Instrument/Control Technician, Ur (UFRCRT) ug/g SERVICE ADVOCATE CONTACT 16.32 Free Cortisol ug/L, Urine ug/L 6.69 [...] Tissues: No significant finding. Lower thorax: Unremarkable. Shirt Turner (topogram) images: No additional findings. IMPRESSION: Stable [...] Lower thorax and bones: No significant findings. Shirt Turner (topogram) images: No additional findings. IMPRESSION: 1. [...] SERVICE: 8.40 AM documented in this encounter [facility] 03-14-2025 Note HNO ID: [id number] Author: ?, ?, ? Service: ? Author [...] Alonzostef Cassidy March 14, 2025 11:09 AM [facility] [place] 03-14-2025 History of Present illness Narrative Radiology [...] PATIENT PRESENTS WITH AN IMPLANTABLE OR ATTACHED CIGARETTE INSPECTOR: No RADIOLOGY DEPARTMENT: Mammography PERIPHERAL IV DATA: Not applicable SIGNED BY: Brandon Snow March 14, 2025 7:56 AM documented in this encounter [facility] 03-14-2025 Note HNO ID: [id number] Author: DEBBY LIN Mammo Tech Service: ? Author Type: Fondant Machine Operator Type: Progress Notes Filed: 03/14/2025 07:56 Note [...] PATIENT PRESENTS WITH AN IMPLANTABLE OR ATTACHED CIGARETTE INSPECTOR: No RADIOLOGY DEPARTMENT: Mammography PERIPHERAL IV DATA: Not applicable SIGNED BY: Debby Lin [employer] March 14, 2025 7:56 AM [facility] [place] 03-13-2025 Note HNO ID: [id number] Author: ?, ?, ? Service: ? Author [...] Caro Cassidy March 13, 2025 9:16 AM [facility] [place] 03-13-2025 History of Present illness Narrative POPULATION [...] 2025 9:16 AM documented in this encounter [facility] 03-13-2025 Note Patient Outreach (DOMINGO TNAV) ---- DOM AVILA ([id number]) 1955 F Date Time Provider Department 03/13/25 [...] MG DAILY August 23, 2019 3:27pm - sybets-hmtongva-zgfrbxv (CREON 36) 36,000-114,000- 180,000 unit delayed release [...] 2 diabetes mellitus without com*10/22/2016 Atherosclerosis of [place] coronary artery with *01/09/2017 S/P angioplasty with stent [Z95.820] 01/09/2017 Meniere disease, right [H81.01] 10/29/2017 Histor (more content not included)... [facility] [place] 02-19-2025 Instructions Ori Lord DO - 02/19/2025 9:06 AM EDT We discussed your adrenal nodule: - You are undergoing further testing, including the dexamethasone suppression test, which you are starting today. - Your next appointment with the before school is scheduled for March 16. Please continue [...] - Continue to follow up with your before school as planned. If you have any new or worsening symptoms, please contact our office. documented in this encounter [facility] 02-19-2025 History of Present illness Narrative Images from the original note were not included. [facility] ESTABLISHED PATIENT NOTE/HISTORY AND PHYSICAL PATIENT: Dom Vel Avila (69 year old) PCP: Clifton Hung MD DATE OF SERVICE: 02/19/2025 SUBJECTIVE: CHIEF COMPLAINT: Follow Up (6 mo f/u. Patient has no new complaints and denies any urinary issues. ) HISTORY OF PRESENT ILLNESS: Recording using Mfuse software for draft documentation of the visit was discussed with the patient/authorized aircraft sales representative; all questions welcomed and answered. Patient/authorized aircraft sales representative agreed to proceed The patient [...] scheduled and a follow-up appointment with her before school on March 16. 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), Cataract, Colon polyp (2011), Controlled type 2 diabetes mellitus without complication, without long-term current use of insulin ([facility]) (10/22/2016), De Quervain's tenosynovitis, left (07/31/2019), Diabetic eye exam ([facility]) (01/16/2016), Ductal carcinoma in situ (DCIS) of [...] ezetimibe, pioglitazone, OTC NUTRITIONAL SUPPLEMENT, coenzyme q10, irlgys-jbgufbkj-oqfbeyv, lisinopril, estradiol, calcium citrate-vitamin d3, metformin, ammonium [...] for: Cr, UCx, CT , note from [employer] As background copied from prior notes, changes [...] may be inappropriate. documented in this encounter [facility] 02-19-2025 Note HNO ID: [id number] Author: ORI LORD DO Service: ? Author Type: Physician Type: Progress Notes Filed: 02/19/2025 09:18 Note Text: [facility] ESTABLISHED PATIENT NOTE/HISTORY AND PHYSICAL PATIENT: Dom Avila (69 year old) PCP: Clifton Hung MD DATE OF SERVICE: 02/19/2025 SUBJECTIVE: CHIEF COMPLAINT: Follow Up (6 mo f/u. Patient has no new complaints and denies any urinary issues. ) HISTORY OF PRESENT ILLNESS: Recording using Mfuse software for draft documentation of the visit was discussed with the patient/authorized aircraft sales representative; all questions welcomed and answered. Patient/authorized aircraft sales representative agreed to proceed The patient [...] scheduled and a follow-up appointment with her before school on March 16. 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), Cataract, Colon polyp (2011), Controlled type 2 diabetes mellitus without complication, without long-term current use of insulin ([facility]) (10/22/2016), De Quervain's tenosynovitis, left (07/31/2019), Diabetic eye exam ([facility]) (01/16/2016), Ductal carcinoma in situ (DCIS) of [...] (10/29/2017), Mixed hyperlipidemia (05/31/2009), Narcolepsy without cataplexy ([facility]) (01/16/2016), Obstructive sleep apnea on CPAP, Other skin changes (09/26/2021), Pancreatic insufficiency ([facility]) (04/08/2023), Psoriasis, RLS (restless legs syndrome) (02/22/2023), Rosacea, S/P angioplasty with stent (01/09/2017), Scalp itch, Seasonal allergies, Type 2 diabetes mellitus with hyperlipidemia ([facility]) (04/17/2024), Vitamin D deficiency (2012), and Well [...] repair, detached reti (more content not included)... [facility] 02-16-2025 Instructions Alexa Matute MD - 02/16/2025 [...] labs are drawn documented in this encounter [facility] 02-16-2025 Note HNO ID: [id number] Author: ALEXA MATUTE MD Service: ? 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 Has been [...] [place] Type 2 diabetes mellitus with hyperlipidemia ([facility]) 04/17/2024 Vitamin D deficiency 2013 Well adult exam 01/16/2016 Last done: 09/08/2018 Surgical History: PAST SURGICAL HISTORY Procedure Laterality Date 2D ECHO (EXEP) 06/30/2017 EF=65%, trivial FL, TI and 1+ PI Unchanged from 04/2017 2D ECHO (EXEP) 05/14/2021 EF=60%, 1+ TI, trival FL, AI, PI 2D ECHO (EXEP) 09/16/2021 EF=60%, [...] cancer) Mother Coronary Artery Disease Father 25 FL @ 25. CABG Diabetes Father Diabetes Paternal [...] Comments myalgia Lovastatin Other: See Comments myalgia [place] [Hydrocodone-* Itching Current medications: Current Outpatient Medications [...] 100 MG DAILY August 23, 2019 3:27pm yzmjfu-rczxrxyv-ocrixqx (CREON 36) 36,000-114,000- 180,000 unit delayed release [...] 500 - 1400 mg/d 800 Cortisol ug/g Instrument/Control Technician, Ur (UFRCRT) ug/g SERVICE ADVOCATE CONTACT 16.32 Free Cortisol ug/L, Urine ug/L 6.69 [...] Tissues: No significant finding. Lower thorax: Unremarkable. Shirt Turner (topogram) images: No additional findings. IMPRESSION: Stable [...] Lower thorax and bones: No significant findings. Shirt Turner (topogram) images: No additional findings. IMPRESSION: 1. [...] SERVICE: 9:00 AM documented in this encounter [facility] 01-30-2025 History of Present illness Narrative Pt chart reviewed as part of population health initiative focused on statin use in patients with diabetes (DM) or cardiovascular disease (CVD). 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 Cataract Colon polyp 2011 Controlled type 2 diabetes mellitus without complication, without long-term current use of insulin ([facility]) 10/22/2016 De Quervain's tenosynovitis, left 07/31/2019 Diabetic eye exam ([facility]) 01/16/2016 Lat done: 12/03/2017 No retinopathy Ductal [...] [place] Type 2 diabetes mellitus with hyperlipidemia ([facility]) ([facility]) 04/17/2024 Vitamin D deficiency 2013 Well adult [...] BCACP Clinical Pharmacist documented in this encounter [facility] 01-30-2025 Note HNO ID: [id number] Author: VALARIE RUSSELL RPh Service: ? Author Type: Pharmacist Type: Progress Notes Filed: 01/30/2025 15:41 Note Text: Pt chart reviewed as part of population health initiative focused on statin use in patients with diabetes (DM) or cardiovascular disease (CVD). 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 Valarie Russell, Pharm.D, [facility] Clinical Pharmacist [facility] 01-30-2025 Note Patient Outreach (PM FBEA) ---- DOM AVILA ([id number]) 1955 F Date Time Provider Department 01/30/25 [facility] today, we recorded the following information about you: Valarie Russell [facility] 01/30/2025 3:41 PM Signed Pt chart reviewed as part of population health initiative focused on statin use in patients with diabetes (DM) or cardiovascular disease (CVD). 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 Cataract Colon polyp 2011 Controlled type 2 diabetes mellitus without complication, without long-term current use of insulin ([facility]) 10/22/2016 De Quervain's tenosynovitis, left 07/31/2019 Diabetic eye exam ([facility]) 01/16/2016 Lat done: 12/03/2017 No retinopathy Ductal [...] [place] Type 2 diabetes mellitus with hyperlipidemia ([facility]) ([facility]) 04/17/2024 Vitamin D deficiency 2013 Well adult [...] be removed for measure. Valarie Russell Pharm.D, [facility]CP Clinical Pharmacist Allergies As of Date: 01/30/2025 Noted Allergy Reaction BRILINTA (TICAGRELOR) 06/28/2017 12 - Shortness of Breath CRESTOR (ROSUVASTATIN) 04/10/2020 17 - Myalgia KEFLEX (CEPHALEXIN) 02/02/2006 14 - Other: See Comments Comments: facial flushing LIPITOR (ATORVASTATIN) 07/21/2013 14 - Other: See Comments Comments: myalgia LOVASTATIN 07/21/2013 14 - Other: See Comments Comments: myalgia NORCO (HYDROCODONE-ACETAMINOPHEN) 10/29 (more content not included)... [facility] 01-01-2025 Telephone encounter Note Nirmatrelvir/Ritonavir (Paxlovid) Considerations [...] [place] APRN.CNP January 01, 2025 11:07 AM [facility] 01-01-2025 Instructions Francine Madrid APRN.CNP - 01/01/2025 11:09 AM EST Images from the original note were not included. FACT SHEET FOR PATIENTS, PARENTS, AND CAREGIVERS EMERGENCY USE AUTHORIZATION (EUA) OF PAXLOVID FOR CORONAVIRUS DISEASE 2019 (COVID-19) You are being given this Fact Sheet because your healthcare provider believes it is necessary to provide you with PAXLOVID for the treatment of xhex-av-mbhlmtzd coronavirus disease (COVID-19) caused by the SARS-CoV-2 [...] make PAXLOVID available for the treatment of zqxh-ng-jqrtqgan COVID-19 in adults and children 12 years [...] virus. COVID-19 illnesses have ranged from very post-sa-nmwpko, including illness resulting in . While information [...] available under EUA for the treatment of mgvq-xj-rdpjsvix COVID-19 in adults and children 12 years [...] of using PAXLOVID to treat children with ympd-ec-evanzqht COVID-19. What is the most important information [...] the medicines you take, including prescription and rylu-aaj-ncwcbms medicines, vitamins, and herbal supplements. Your healthcare [...] morning or evening, depending on when you fruit picker your prescription, or as your healthcare [...] PAXLOVID is FDA-approved for the treatment of ehkr-cd-hrzrzzgv COVID-19 in certain adults; however, there are not sufficient quantities of the approved presentations (i.e., dose packs) of PAXLOVID at this time. This EUA continues to authorize the emergency use of PAXLOVID for the approved patient population to ensure continued access in order to meet the public health need. VEKLURY (remdesivir) is FDA-approved for the treatment of dxhq-wv-ytckwzsc COVID-19 in certain adults and children. Talk with your healthcare provider to see if VEKLURY is appropriate for you. For information on the emergency use of other medicines that are authorized by FDA to treat people with COVID-19, please go to https://www.fda.gov/emergency-prepared azqr-slb-jppnjlvc/tmy-atklc-umlvdnjdqh -epz-hmjqsh-ldeggvyiy/seyltgsow-jsk-ci thorization. Your healthcare provider may talk with [...] to FDA MedWatch at www.fda.gov/medwatch or call 0-380-BSI-3809 or you can report side effects to [employer]. at the contact information provided below. How [...] bottom of blister pack at this website: https://www.[employer]ribes[employer]/ or talk with your healthcare provider. Information on the authorized shelf-life extensions for PAXLOVID may also be found at https://www.fda.gov/emergency-prepared ernp-nya-wsodxenk/gcs-pjilt-iefvkfpbtu -tps-fatsww-agdkissam/expiration-datin g-extension. How can I learn more about COVID-19? Ask your healthcare provider. Visit https://www.cdc.gov/COVID19. Contact your local or state public health department. What is an Emergency Use Authorization (EUA)? The [place] FDA has made PAXLOVID available under an emergency access mechanism called an Emergency Use Authorization (EUA). The EUA is supported by a Hyperbaric Technologist of Health and Human Services ([facility]) declaration that circumstances exist to justify the [...] call the telephone number provided below. Website: [email or web address] Telephone number: ([phone]) Distributed by [employer] of [employer] [place] [address] [id number] Revised: 03/2023 documented in this encounter [facility] 01-01-2025 Miscellaneous Notes Nirmatrelvir/Ritonavir (Paxlovid) [...] risk of HIV-1 resistance development. Francine Madrid APRN.TOOL MACHINE SETUP OPERATOR January 01, 2025 11:07 AM Pt notified of results and provider message. Pt reports she would like a rx to be sent to [facility] in [place]. Pharmacy updated. Em Mahmood LPN Called and [...] it is needed. documented in this encounter [facility] 01-01-2025 Telephone encounter Note Pt notified of results and provider message. Pt reports she would like a rx to be sent to [facility] in [place]. Pharmacy updated. Em Mahmood LPN [facility] 01-01-2025 Telephone encounter Note Called and left message on patients voicemail to return call to the office and ask to speak with a triage nurse. Natalie Presley MA [facility] 01-01-2025 Telephone encounter Note Please let patient know she has Covid. She is still in the window for treatment if she would like it but if she has mild symptoms and no shortness of breath I do not think it is needed. [facility] 01-01-2025 Telephone encounter Note Prescription Refill Information [...] Deshpande LPN January 01, 2025 7:29 AM [facility] 01-01-2025 Miscellaneous Notes Prescription Refill Information The [...] 2025 7:29 AM documented in this encounter [facility] 12-29-2024 Note SARS-COV-2 (AGENT OF COVID-19) RNA: Detected INFLUENZA A RNA: Not detected INFLUENZA B RNA: Not detected RESPIRATORY SYNCYTIAL VIRUS (RSV) RNA: Not detected [facility] Comment on above: Performed By: #### [id number] ####[facility] LABCLIA [id number] [address] OF [facility] 12-29-2024 Note HNO ID: [id number] Author: FRANCINE MADRID APRN.TOOL MACHINE SETUP OPERATOR Service: ? 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 Cataract Colon polyp 2011 Controlled type 2 diabetes mellitus without complication, without long-term current use of insulin ([facility]) 10/22/2016 De Quervain's tenosynovitis, left 07/31/2019 Diabetic eye exam ([facility]) 01/16/2016 Lat done: 12/03/2017 No retinopathy Ductal [...] [place] Type 2 diabetes mellitus with hyperlipidemia ([facility]) ([facility]) 04/17/2024 Vitamin D deficiency 2013 Well adult exam 01/16/2016 Last done: 09/08/2018 Previous Surgical History PAST SURGICAL HISTORY Procedure Laterality Date 2D ECHO (EXEP) 06/30/2017 EF=65%, trivial FL, TI and 1+ PI Unchanged from 04/2017 2D ECHO (EXEP) 05/14/2021 EF=60%, 1+ TI, trival FL, AI, PI 2D ECHO (EXEP) 09/16/2021 EF=60%, [...] cancer) Mother Coronary Artery Disease Father 25 FL @ 25. CABG Diabetes Father Diabetes Paternal Grandmother Diabetes Maternal Grandfather other (Lung cancer) Brother other (suicide) Son may of been depression Patient Allergies ALLERGIES Allergen Reactions Brilinta [Ticagrelo* Shortness of Breath Crestor (more content not included)... 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 Cataract Colon polyp 2011 Controlled type 2 diabetes mellitus without complication, without long-term current use of insulin (HCC) 10/22/2016 De Quervain's tenosynovitis, left 07/31/2019 Diabetic eye exam ([facility]) 01/16/2016 Lat done: 12/03/2017 No retinopathy Ductal [...] Date 2D ECHO (EXEP) 06/30/2017 EF=65%, trivial FL, TI and 1+ PI Unchanged from 04/2017 2D ECHO (EXEP) 05/14/2021 EF=60%, 1+ TI, trival FL, AI, PI 2D ECHO (EXEP) 09/16/2021 EF=60%, [...] cancer) Mother Coronary Artery Disease Father 25 FL @ 25. CABG Diabetes Father Diabetes Paternal Grandmother Diabetes Maternal Grandfather other (Lung cancer) Brother other (suicide) Son may of been depression Patient Allergies ALLERGIES Allergen Reactions Brilinta [Ticagrelo* Shortness of Breath Crestor [Rosuvastat* Myalgia Keflex [Cephalexin] Other: See Comments facial flushing Lipitor [Atorvastat* Other: See Comments myalgia Lovastatin Other: See Comments myalgia [place] [Hydrocodone-* Itching Current Medications Current Outpatient Medications [...] 100 MG DAILY August 23, 2019 3:27pm rmzwcr-ganxvjgv-jfyxfxq (CREON 36) 36,000-114,000- 180,000 unit delayed release [...] up with cardiology for re-eval. Francine Madrid APRN.TOOL MACHINE SETUP OPERATOR documented in this encounter [facility] 12-14-2024 Telephone encounter Note The following approved medication requests have been transmitted electronically. Requested Prescriptions Signed Prescriptions Disp Refills omeprazole (PRILOSEC) 40 mg capsule 30 capsule 5 Sig: Take 1 capsule by mouth once daily. Authorizing Provider: CLIFTON HUNG MD [facility] 12-14-2024 Miscellaneous Notes The following [...] 2024 5:43 PM documented in this encounter [facility] 12-14-2024 Telephone encounter Note The [...] Escobar RN December 14, 2024 5:43 PM [facility] 11-03-2024 Instructions Alexa Matute MD [...] the urine sample documented in this encounter [facility] 11-03-2024 Note HNO ID: [id number] Author: ALEXA MATUTE MD Service: ? 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 Cataract Colon polyp 2011 Controlled type 2 diabetes mellitus without complication, without long-term current use of insulin (HCC) 10/22/2016 De Quervain's tenosynovitis, left 07/31/2019 Diabetic eye exam ([facility]) 01/16/2016 Lat done: 12/03/2017 No retinopathy Ductal [...] Date 2D ECHO (EXEP) 06/30/2017 EF=65%, trivial FL, TI and 1+ PI Unchanged from 04/2017 2D ECHO (EXEP) 05/14/2021 EF=60%, 1+ TI, trival FL, AI, PI 2D ECHO (EXEP) 09/16/2021 EF=60%, [...] summer 2022 ST (more content not included)... 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 Cataract Colon polyp 2011 Controlled type 2 diabetes mellitus without complication, without long-term current use of insulin ([facility]) 10/22/2016 De Quervain's tenosynovitis, left 07/31/2019 Diabetic eye exam ([facility]) 01/16/2016 Lat done: 12/03/2017 No retinopathy Ductal [...] [place] Type 2 diabetes mellitus with hyperlipidemia ([facility]) ([facility]) 04/17/2024 Vitamin D deficiency 2013 Well adult exam 01/16/2016 Last done: 09/08/2018 Surgical History: PAST SURGICAL HISTORY Procedure Laterality Date 2D ECHO (EXEP) 06/30/2017 EF=65%, trivial FL, TI and 1+ PI Unchanged from 04/2017 2D ECHO (EXEP) 05/14/2021 EF=60%, 1+ TI, trival FL, AI, PI 2D ECHO (EXEP) 09/16/2021 EF=60%, [...] cancer) Mother Coronary Artery Disease Father 25 FL @ 25. CABG Diabetes Father Diabetes Paternal [...] Comments myalgia Lovastatin Other: See Comments myalgia [place] [Hydrocodone-* Itching Current medications: Current Outpatient Medications [...] 100 MG DAILY August 23, 2019 3:27pm iaryrn-ymrbjbla-esoohcf (CREON 36) 36,000-114,000- 180,000 unit delayed release [...] Tissues: No significant finding. Lower thorax: Unremarkable. Shirt Turner (topogram) images: No additional findings. IMPRESSION: Stable [...] Lower thorax and bones: No significant findings. Shirt Turner (topogram) images: No additional findings. IMPRESSION: 1. [...] SERVICE: 12:48 PM documented in this encounter [facility] 10-18-2024 Instructions Clifton Hung MD - 10/18/2024 9:51 AM EST Please get labs and urine test done on or after prior to your next visit. documented in this encounter [facility] 10-18-2024 History of Present illness [...] last visit 09/2024 Patient sees [facility] last visit 04/2024 Past medical history, appointments, medications, allergies reviewed. 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 Aclantar Psoriasis RLS (restless legs syndrome) 02/22/2023 Seeing [...] Date 2D ECHO (EXEP) 06/30/2017 EF=65%, trivial FL, TI and 1+ PI Unchanged from 04/2017 2D ECHO (EXEP) 05/14/2021 EF=60%, 1+ TI, trival FL, AI, PI 2D ECHO (EXEP) 09/16/2021 EF=60%, [...] cancer) Mother Coronary Artery Disease Father 25 FL @ 25. CABG Diabetes Father Diabetes Paternal Grandmother Diabetes Maternal Grandfather other (Lung cancer) Brother other (suicide) Son may of been depression Patient Allergies ALLERGIES Allergen Reactions Brilinta [Ticagrelo* Shortness of Breath Crestor [Rosuvastat* Myalgia Keflex [Cephalexin] Other: See Comments facial flushing Lipitor [Atorvastat* Other: See Comments myalgia Lovastatin Other: See Comments myalgia [place] [Hydrocodone-* Itching Current Medications Current Outpatient Medications [...] 100 MG DAILY August 23, 2019 3:27pm pwlmne-yslfymcj-uawqcai (CREON 36) 36,000-114,000- 180,000 unit delayed release [...] Abs Lymph 1.00 - 4.00 k/uL 1.82 [place]% % 9.0 Abs [place] <0.87 k/uL 0.47 Eosin% % 1.3 Abs [...] Type 2 diabetes mellitus with hyperlipidemia (HCC) ([facility]) - ICD9: 250.80, 272.4, ICD10: E11.69, E78.5 [...] complication, without long-term current use of insulin ([facility]) - ICD9: 250.00, ICD10: E11.9 - Controlled - Improving control - Continue current medications - Counseled on healthy diet and regular exercise - Discussed need for and benefit of weight loss. BMI 24.88 kg/(m^2) 3. Diabetic eye exam ([facility]) - ICD9: V72.0, 250.00, ICD10: Z01.00, E11.9 [...] able to tolerate statins. 6. 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 Author [...] last visit 09/2024 Patient sees [facility] last visit 04/2024 Past medical history, appointments, medications, allergies reviewed. 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 [facility] 10-13-2024 Telephone encounter Note Left detailed message. Shakeel Yang MA [facility] 10-13-2024 Miscellaneous Notes Left detailed message. Shakeel Yang MA Labs placed. Patient calls and states that she has a 6 month follow up on 10/18. Patient asking if provider wants her to get labs done prior to appointment? Please review and adviseSylwia RN documented in this encounter [facility] 10-13-2024 Telephone encounter Note Labs placed. [facility] 10-13-2024 Telephone encounter Note Patient calls and states that she has a 6 month follow up on 10/18. Patient asking if provider wants her to get labs done prior to appointment? Please review and advise, Sylwia Kirk RN [facility] 10-02-2024 Note HNO ID: [id number] Author: SHAKEEL YANG MA Service: ? Author Type: Medicine Worker Type: Progress Notes Filed: 10/02/2024 17:02 Note Text: Scan on 09/29/2024 4:11 PM by ProviderDeyvi PA-C: Consultation - Ophthalmology Shakeel Yang MA [facility] 10-02-2024 History of Present illness Narrative Scan on 09/29/2024 4:11 PM by Deyvi Yadav PA-C: Consultation - Ophthalmology Shakeel Yang MA documented in this encounter [facility] 09-26-2024 Telephone encounter Note Notified via [employer]. Advised to call in and schedule. Kassandra Mitchell MA [facility] 09-26-2024 Miscellaneous Notes Notified via [employer]. Advised to call in and schedule. Kassandra Mitchell MA Patient should have an ER follow up appt. See [employer] message. Kassandra Mitchell MA documented in this encounter [facility] 09-26-2024 Telephone encounter Note Patient should have an ER follow up appt. [facility] 09-26-2024 Telephone encounter Note See [employer] message. Kassandra Mitchell MA [facility] 09-22-2024 Alexa Horton MD - [...] let me know documented in this encounter [facility] 09-22-2024 Note HNO ID: [id number] Author: ALEXA MATUTE MD Service: ? 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 CABG Diabetes Father Diabetes Paternal [...] Comments myalgia Lovastatin Other: See Comments myalgia [place] [Hydrocodone-* Itching Current medications: Current Outpatient Medications [...] 100 MG DAILY August 23, 2019 3:27pm yasayj-wpjpzkiu-ntlmkmh (CREON 36) 36,000-114,000- 180,000 unit delayed release [...] Tissues: No significant finding. Lower thorax: Unremarkable. Shirt Turner (topogram) images: No additional findings. IMPRESSION: Stable [...] Lower thorax and bones: No significant findings. Shirt Turner (topogram) images: No additional findings. IMPRESSION: 1. [...] SERVICE: 12:48 PM documented in this encounter [facility] 09-14-2024 Note HNO ID: [id number] Author: CHAD MARIEE APRN.ELIZABETH Service: ? Author Type: Nurse Practitioner Type: Progress Notes Filed: 09/14/2024 09:22 Note Text: Chief Complaint Patient presents with: Established Patient HPI: Dom Avila is a 69 year old female who presents here today for follow up DCIS. Per Dr. 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 - Continue follow up with PCP/GI/Cards/MILITARY AIRCRAFT DESIGNER. - Mammogram due March 2025. - Follow up after above. - Pt. aware to call office with any questions/concerns. The sensitive examination was discussed with the Patient or Patient's Authorized Airline Reservationist. As applicable, any other physician, advance practice provider, medical student, or other health professional student that will be observing or involved in the sensitive examination for educational or training purposes was discussed with the Patient or Authorized Airline Reservationist. The Patient or Authorized Airline Reservationist has agreed to proceed with the sensitive examination. (Sensitive examination includes inspection and/or palpation of the breasts, pelvis, prostate and anorectal regions) The patient indicates understanding of these issues and agrees with the plan. All documentation from previous visit of 03/14/24-Dr. Georges/myself was copied and pasted, documentation has been reviewed and edited as necessary for today's visit. Chad Mariee APRN.[facility] 09-14-2024 History of Present illness Narrative Chief Complaint Patient presents with: Established Patient HPI: Dom Avila is a 69 year old female who presents here today for follow up DCIS. Per Dr. 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 2024 The ROS [...] Continue tamoxifen. - Continue follow up with PCP/GI/Cards/MILIT[employer] DES[employer]ER. - Mammogram due March 2025. - Follow up after above. - Pt. aware to call office with any questions/concerns. The sensitive examination was discussed with the Patient or Patient's Authorized Airline Reservationist. As applicable, any other physician, advance practice provider, medical student, or other health professional student that will be observing or involved in the sensitive examination for educational or training purposes was discussed with the Patient or Authorized Airline Reservationist. The Patient or Authorized Airline Reservationist has agreed to proceed with the sensitive examination. (Sensitive examination includes inspection and/or palpation of the breasts, pelvis, prostate and anorectal regions) The patient indicates understanding of these issues and agrees with the plan. All documentation from previous visit of 03/14/24-Dr. Georges/myself was copied and pasted, documentation has been reviewed and edited as necessary for today's visit. Chad Mareie APRN.ELIZABETH documented in this encounter [facility] 08-15-2024 History of Present illness [...] PATIENT PRESENTS WITH AN IMPLANTABLE OR ATTACHED CIGARETTE INSPECTOR: No RADIOLOGY DEPARTMENT: CT; Exam(s) Completed: Adrenal PERIPHERAL IV DATA: Not applicable SIGNED BY: RT Susie(Sunil) August 15, 2024 11:57 AM documented in this encounter [facility] 08-15-2024 Note HNO ID: [id number] Author: LAURA RIVAS RT(Sunil) Service: ? Author Type: Fondant Machine Operator Type: Progress Notes Filed: 08/15/2024 11:57 Note [...] PATIENT PRESENTS WITH AN IMPLANTABLE OR ATTACHED CIGARETTE INSPECTOR: No RADIOLOGY DEPARTMENT: CT; Exam(s) Completed: Adrenal PERIPHERAL IV DATA: Not applicable SIGNED BY: RT Susie(R) August 15, 2024 11:57 AM [facility] 08-04-2024 Instructions Ori Lord DO - 08/04/2024 [...] rest or medications. documented in this encounter [facility] 08-04-2024 Note HNO ID: [id number] Author: ORI LORD DO Service: ? Author Type: Physician Type: Procedures Filed: 08/11/2024 19:05 Note Text: CYSTOSCOPY , STENT REMOVAL PROCEDURE NOTE: Dom Avila is a 69 year old female who presents for a cystoscopy and stent removal. Pt ID verified with patient: Yes Procedure verified with patient: Yes Procedure confirmed with physician and it support specialist: Yes Fire Safety Check List [...] increase oral fluid intake as directed. A channel marketing manager Nicole Madsen was present for the entire visit including examination/procedure. [facility] 08-04-2024 Procedure note CYSTOSCOPY , STENT REMOVAL PROCEDURE NOTE: Dom Avila is a 69 year old female who presents for a cystoscopy and stent removal. Pt ID verified with patient: Yes Procedure verified with patient: Yes Procedure confirmed with physician and it support specialist: Yes Fire Safety Check List [...] increase oral fluid intake as directed. A channel marketing manager Nicole Madsen was present for the entire visit including examination/procedure. [facility] 08-04-2024 Note HNO ID: [id number] Author: ORI LORD DO Service: ? 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), CAD (coronary artery disease), Cataract, Colon polyp (2011), Controlled type 2 diabetes mellitus without complication, without long-term current use of insulin ([facility]) (10/22/2016), De Quervain's tenosynovitis, left (07/31/2019), Diabetic eye exam ([facility]) (01/16/2016), Ductal carcinoma in situ (DCIS) of [...] NUTRITIONAL SUPPLEMENT, pioglitazone, omeprazole, doxycycline, coenzyme q10, hrjyrt-fgwrsoiw-lhrqewn, lisinopril, estradiol, tamoxifen, calcium citrate-vitamin d3, ezetimibe, [...] OBJECTIVE: PHYSICAL EXAMINATI (more content not included)... [facility] 08-04-2024 History of Present illness Narrative Images from the original note were not included. 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) (01/09/2017), Garibay's cyst of knee, left (03/02/2018), Breast neoplasm, Tis (DCIS), 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), CAD (coronary artery disease), Cataract, Colon polyp (2011), Controlled type 2 diabetes mellitus without complication, without long-term current use of insulin ([facility]) (10/22/2016), De Quervain's tenosynovitis, left (07/31/2019), Diabetic eye exam ([facility]) (01/16/2016), Ductal carcinoma in situ (DCIS) of [...] NUTRITIONAL SUPPLEMENT, pioglitazone, omeprazole, doxycycline, coenzyme q10, ghwwhz-puuornoq-ghgtepy, lisinopril, estradiol, tamoxifen, calcium citrate-vitamin d3, ezetimibe, [...] may be inappropriate. documented in this encounter [facility] 08-04-2024 Procedure note CYSTOSCOPY , STENT REMOVAL PROCEDURE NOTE: Dom Avila is a 69 year old female who presents for a cystoscopy and stent removal. Pt ID verified with patient: Yes Procedure verified with patient: Yes Procedure confirmed with physician and it support specialist: Yes Fire Safety Check List [...] increase oral fluid intake as directed. A channel marketing manager Nicole Madsen was present for the entire visit including examination/procedure. documented in this encounter [facility] 08-02-2024 Telephone encounter Note The following approved medication requests have been transmitted electronically. Requested Prescriptions Signed Prescriptions Disp Refills pioglitazone (ACTOS) 15 mg tablet 90 tablet 1 Sig: Take 1 tablet by mouth once daily. Authorizing Provider: CLIFTON HUNG MD [facility] 08-02-2024 Miscellaneous Notes The following [...] 2024 1:27 PM documented in this encounter [facility] 08-02-2024 Telephone encounter Note Prescription [...] Valdes LPN August 02, 2024 1:27 PM [facility] 07-17-2024 Telephone encounter Note The following approved medication requests have been transmitted electronically. Requested Prescriptions Signed Prescriptions Disp Refills omeprazole (PRILOSEC) 40 mg capsule 30 capsule 5 Sig: Take 1 capsule by mouth once daily. Authorizing Provider: CLIFTON HUNG MD [facility] 07-17-2024 Miscellaneous Notes The following [...] 2024 1:22 PM documented in this encounter [facility] 07-17-2024 Telephone encounter Note Prescription [...] Nunez LPN July 17, 2024 1:22 PM [facility] 07-11-2024 Alexa Horton MD - 07/11/2024 1:33 PM EDT Please hold metformin for 2 days before the imaging for CT with contrast documented in this encounter [facility] 07-11-2024 Note HNO ID: [id number] Author: ALEXA MATUTE MD Service: ? 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 Gomez 03/02/2018: Garibay's cyst of knee, left 03/2021: Breast neoplasm, Tis (DCIS), left No date: CAD (coronary artery disease) No date: Cataract 2011: Colon polyp 10/22/2016: Controlled type 2 diabetes mellitus without complication, without long-term current use of insulin ([facility]) 07/31/2019: De Quervain's tenosynovitis, left 01/16/2016: Diabetic eye exam ([facility]) Comment: Lat done: 12/03/2017 No retinopathy 05/26/2021: [...] 06/30/2017: 2D ECHO (EXEP) Comment: EF=65%, trivial FL, TI and 1+ PI Unchanged from 04/201705/14/2021: 2D ECHO (EXEP) Comment: EF=60%, 1+ TI, trival FL, AI, PI 09/16/2021: 2D ECHO (EXEP) Comment: [...] cancer) Mother Coronary Artery Disease Father 25 FL @ 25. CABG Diabetes Father Diabetes Paternal [...] Comments myalgia Lovastatin Other: See Comments myalgia [place] [Hydrocodone-* Itching Current medications: Current Outpatient Medications [...] 100 MG DAILY August 23, 2019 3:27pm ldjjet-zqetzgqz-egdxdno (CREON 36) 36,000-114,000- 180,000 unit delayed release [...] Tissues: No significant finding. Lower thorax: Unremarkable. Shirt Turner (topogram) images: No additional findings. IMPRESSION: Stable [...] SERVICE: 12:48 PM documented in this encounter [facility] 07-04-2024 Instructions Pascual Ori, - [...] tobacco products. Take any kinds of medicines, hmdq-anh-caouviu supplements or recreational drugs. Have other family [...] the definition of microhematuria according to the [employer]. Repeat testing is not required [...] eat or drink or what to avoid. Matthews / Prognosis What can I expect if [...] the most likely cause. A note from [facility] You might have blood in [...] patient s medical history, current prescription and wayj-yre-gouvvay medications, and allergies to medications, including anesthetics. [...] her bladder before the procedure begins. The pwbw-fs-yvyr process may be similar to this: The [...] urethral opening to relieve discomfort Take an ddwh-rtb-uimukzw pain medicine If necessary, the urologist may [...] urine Fever Severe discomfort References: NIH: National [place] of Diabetes and Digestive and Kidney Diseases. Cystoscopy and Ureteroscopy Accessed 05/06/2017. Rolando Paul, Jonnathan D, Buzz H, Bismark CHEUNG. The History of Cystoscopy in Urology, Internet Journal of Urology. 14,1 (2015) [employer] Accessed 05/06/2017. [employer]. What is Cystoscopy? Accessed 05/06/2017. Copyright 7757-2874 The [facility]. All rights reserved. documented in this encounter [facility] 07-04-2024 Note HNO ID: [id number] Author: ORI LORD DO Service: ? Author Type: Physician Type: Progress Notes Filed: 07/04/2024 11:16 Note Text: [facility] ESTABLISHED PATIENT NOTE/HISTORY AND PHYSICAL PATIENT: Dom Avila (68 year old) PCP: Clifton Hung MD DATE OF SERVICE: 07/04/2024 SUBJECTIVE: CHIEF COMPLAINT: Patient is here for 6 week f/u. Patient has no new concerns. Patient is scheduled to see an Shock Absorption Floor Layer on 07/11/24. 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) (01/09/2017), Garibay's cyst of knee, left (03/02/2018), Breast neoplasm, Tis (DCIS), 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), CAD (coronary artery disease), Cataract, Colon polyp (2011), Controlled type 2 diabetes mellitus without complication, without long-term current use of insulin ([facility]) (10/22/2016), De Quervain's tenosynovitis, left (07/31/2019), Diabetic eye exam ([facility]) (01/16/2016), Ductal carcinoma in situ (DCIS) of [...] includes the following prescription(s): doxycycline, coenzyme q10, xghjrb-avvthgqj-efnzaka, lisinopril, fluconazole, estradiol, tamoxifen, pioglitazone, omeprazole, calcium [...] smoking use include (more content not included)... [facility] 07-04-2024 History of Present illness Narrative Images from the original note were not included. [facility] ESTABLISHED PATIENT NOTE/HISTORY AND PHYSICAL PATIENT: Dom Avila (68 year old) PCP: Clifton Hung MD DATE OF SERVICE: 07/04/2024 SUBJECTIVE: CHIEF COMPLAINT: Patient is here for 6 week f/u. Patient has no new concerns. Patient is scheduled to see an Shock Absorption Floor Layer on 07/11/24. 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) (01/09/2017), Garibay's cyst of knee, left (03/02/2018), Breast neoplasm, Tis (DCIS), 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), CAD (coronary artery disease), Cataract, Colon polyp (2011), Controlled type 2 diabetes mellitus without complication, without long-term current use of insulin ([facility]) (10/22/2016), De Quervain's tenosynovitis, left (07/31/2019), Diabetic eye exam ([facility]) (01/16/2016), Ductal carcinoma in situ (DCIS) of [...] includes the following prescription(s): doxycycline, coenzyme q10, wawlmz-ddzdnhtr-rocsequ, lisinopril, fluconazole, estradiol, tamoxifen, pioglitazone, omeprazole, calcium [...] -Patient will call the clinic or use [employer] should anything change or any new issues arise -All questions were answered Ori Lord DO Staff Urologist Medical Decision Making: Problems: Moderate: 2+ stable chronic illnesses Data: Unique test result(s) reviewed: 3+ Medical Decision Making Level: 4 - Moderate documented in this encounter [facility] 06-26-2024 Note HNO ID: [id number] Author: LATRICE DUNN LPN Service: ? Author Type: LICENSED NURSE Type: Progress Notes Filed: 06/26/2024 07:18 Note Text: Scan on 06/25/2024 10:26 AM by Deyvi Yadav PA-C: CT Scan [facility] 06-26-2024 History of Present illness Narrative Scan on 06/25/2024 10:26 AM by Provider, External, PA-C: CT Scan documented in this encounter [facility] 06-19-2024 Note HNO ID: [id number] Author: SHAKEEL YANG MA Service: ? Author Type: Medicine Worker Type: Progress Notes Filed: 06/19/2024 15:17 Note Text: Scan on 06/19/2024 10:34 AM by ProviderDeyvi PA-C: Chemistry Scan on 06/19/2024 10:37 AM by Deyvi Yadav PA-C: Consultation - Emergency Medicine Scan on 06/19/2024 11:44 AM by Deyvi Yadav PA-C: EGD Scan on 06/19/2024 11:46 AM by Deyvi Yadav PA-C: Colonoscopy Shakeel Yang MA [facility] 06-19-2024 History of Present illness Narrative Scan on 06/19/2024 10:34 AM by Deyvi Yadav PA-C: Chemistry Scan on 06/19/2024 10:37 AM by Deyvi Yadav PA-C: Consultation - Emergency Medicine Scan on 06/19/2024 11:44 AM by Deyvi Yadav PA-C: EGD Scan on 06/19/2024 11:46 AM by Deyvi Yadav PA-C: Colonoscopy Shakeel Yang MA documented in this encounter [facility] 06-19-2024 Note [facility] Medical Records Department [address] [place] [id number] History Physical Exam 06/19/24 1030 MR#: [id number] Acct: [id number] Name: DOM AVILA Rep #: [id number] : 1955 68 From: Carson Alcantar DO PCP: Dr. Clifton Hung MD Status:[facility] Location: [place] [address] History and Physical Date of Admission: 06/19/24 [...] Fecal Fat, Qualitati (more content not included)... [facility] 06-15-2024 Note HNO ID: [id number] Author: LATRICE DUNN LPN Service: ? Author Type: LICENSED NURSE Type: Progress Notes Filed: 06/15/2024 09:45 Note Text: Scan on 06/15/2024 8:15 AM by Deyvi Yadav PA-C: Microbiology [facility] 06-15-2024 History of Present illness Narrative Scan on 06/15/2024 8:15 AM by Deyvi Yadav PA-C: Microbiology documented in this encounter [facility] 06-14-2024 Note HNO ID: [id number] Author: LATRICE DUNN LPN Service: ? Author Type: LICENSED NURSE Type: Progress Notes Filed: 06/14/2024 06:48 Note Text: Scan on 06/14/2024 1:35 AM by Deyvi Yadav PA-C: Miscellaneous Lab [facility] 06-14-2024 History of Present illness Narrative Scan on 06/14/2024 1:35 AM by Deyvi Yadav PA-C: Miscellaneous Lab documented in this encounter [facility] 06-09-2024 Note HNO ID: [id number] Author: SHAKEEL YANG MA Service: ? Author Type: Medicine Worker Type: Progress Notes Filed: 06/09/2024 14:54 Note Text: Scan on 06/08/2024 4:38 PM by Deyvi Yadav PA-C: Miscellaneous Lab Shakeel Yang MA [facility] 06-09-2024 History of Present illness Narrative Scan on 06/08/2024 4:38 PM by Deyvi Yadav PA-C: Miscellaneous Lab Shakeel Yang MA documented in this encounter [facility] 06-06-2024 Note HNO ID: [id number] Author: LATRICE DUNN LPN Service: ? Author Type: LICENSED NURSE Type: Progress Notes Filed: 06/06/2024 11:38 Note Text: Scan on 06/06/2024 9:40 AM by Deyvi Yadav PA-C: Microbiology [facility] 06-06-2024 History of Present illness Narrative Scan on 06/06/2024 9:40 AM by Deyvi Yadav PA-C: Microbiology documented in this encounter [facility] 06-06-2024 Note HNO ID: [id number] Author: LATRICE DUNN LPN Service: ? Author Type: LICENSED NURSE Type: Progress Notes Filed: 06/06/2024 06:57 Note Text: Scan on 06/05/2024 4:39 PM by Deyvi Yadav PA-C: Hematology [facility] 06-06-2024 History of Present illness Narrative Scan on 06/05/2024 4:39 PM by Deyvi Yadav PA-C: Hematology documented in this encounter [facility] 05-23-2024 Telephone encounter Note Please [...] 3 to 4 hours Ori Lord DO [facility] Work Phone: 05-23-2024 Miscellaneous Notes [...] Ori Lord DO documented in this encounter [facility] 05-23-2024 Telephone encounter Note Consult to Endocrinology at [facility] faxed VIA sherif Madsen MA [facility] 05-23-2024 Miscellaneous Notes Consult to Endocrinology at [facility] faxed VIA sherif Madsen MA documented in this encounter [facility] 05-23-2024 Instructions Ori Landin DO [...] s Well[facility] Healthy A[facility] at [facility] says, it may be something called Genitourinary [...] also be used as lubricants and moisturizers. Matthews / Prognosis What can I expect if [...] provider. If weeks go by and the jktq-gyp-sdmzjcn moisturizers you re using for dryness don t work, you should see your healthcare provider. Also, always see your healthcare provider for any symptoms that negatively impact your daily life. documented in this encounter [facility] 05-23-2024 Note HNO ID: [id number] Author: ORI LANDIN DO Service: ? Author Type: Physician Type: Progress Notes Filed: 05/23/2024 16:45 Note Text: [facility] ESTABLISHED PATIENT NOTE/HISTORY AND PHYSICAL PATIENT: Dom Avila (68 year old) PCP: Clifton Hung MD DATE OF SERVICE: 05/23/2024 SUBJECTIVE: CHIEF COMPLAINT: Follow Up (No new complaints today. Denies urinary pain. Pt states she does feel like she has period cramps. Pt states she does have a history of constipation) HISTORY OF PRESENT ILLNESS: The patient was last seen by Ori Lrod DO on 04/25/24 . 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), CAD (coronary artery disease), Cataract, Colon polyp (2011), Controlled type 2 diabetes mellitus without complication, without long-term current use of insulin ([facility]) (10/22/2016), De Quervain's tenosynovitis, left (07/31/2019), Diabetic eye exam ([facility]) (01/16/2016), Ductal carcinoma in situ (DCIS) of [...] includes the following prescription(s): doxycycline, coenzyme q10, wgdgic-dydfnokm-hsktgjs, lisinopril, fluconazole, estradiol, tamoxifen, pioglitazone, omeprazole, calcium [...] She reports saira (more content not included)... [facility] 05-23-2024 History of Present illness Narrative Images from the original note were not included. 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), CAD (coronary artery disease), Cataract, Colon polyp (2011), Controlled type 2 diabetes mellitus without complication, without long-term current use of insulin ([facility]) (10/22/2016), De Quervain's tenosynovitis, left (07/31/2019), Diabetic eye exam ([facility]) (01/16/2016), Ductal carcinoma in situ (DCIS) of [...] includes the following prescription(s): doxycycline, coenzyme q10, ibvuwb-kjgmarux-krajeyv, lisinopril, fluconazole, estradiol, tamoxifen, pioglitazone, omeprazole, calcium [...] the R tenderness Kegels not tested Medical channel marketing manager present for exam: Lachelle Lemons DATA: Clinic: [...] to 4 hours documented in this encounter [facility] 05-01-2024 History of Present illness Narrative Images from the original note were not included. This note was created using [employer]. Subjective Dom Avila is a 68 year [...] Julio Tavarez APRN.ELIZABETH documented in this encounter [facility] 04-25-2024 History of Present illness Narrative Scan on 04/21/2024 2:48 PM by Provider, KELLY Carnes: Consultation - Cardiology Shakeel Yang MA documented in this encounter [facility] 04-25-2024 Instructions Ori Landin DO [...] and substances do you use, including prescriptions, brox-rcg-hclwwoj drugs, supplements, nicotine, caffeine and alcohol? Your [...] or leaving your house. A note from [facility] Lower urinary tract symptoms (LUTS) include a wide variety of problems with urination. Examples include involuntarily leaking urine or having sudden and strong urges to pee. LUTS may be signs of a health problem, so it s important to talk to a healthcare provider. documented in this encounter [facility] 04-25-2024 Note HNO ID: [id number] Author: ORI LANDIN DO Service: ? 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), Colon polyp (2011), Controlled type 2 diabetes mellitus without complication, without long-term current use of insulin ([facility]) (10/22/2016), De Quervain's tenosynovitis, left (07/31/2019), Diabetic [...] includes the following prescription(s): doxycycline, coenzyme q10, btrvtn-ddkgqbhs-byxqfad, lisinopril, estradiol, tamoxifen, pioglitazone, omeprazole, calcium citrate-vitamin d3, ezetimibe, ammonium lactate, clobetasol propionate, acetaminophen, nitroglycerin sublingual, ketoconazole, magnesium sulfate, montelukast, metoprolol succinate er, lactobacillus acidophilus, fluconazole, amlodipine, metformin, potassium chloride sr, and CPAP. Allergies: -Patient is allergic to brilinta [ticagrelor], crestor [rosuvastatin], keflex [cephalexin], lipito (more content not included)... [facility] 04-25-2024 History of Present illness Narrative Images from the original note were not included. 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), Colon polyp (2011), Controlled type 2 diabetes mellitus without complication, without long-term current use of insulin ([facility]) (10/22/2016), De Quervain's tenosynovitis, left (07/31/2019), Diabetic eye exam ([facility]) (01/16/2016), Ductal carcinoma in situ (DCIS) of [...] includes the following prescription(s): doxycycline, coenzyme q10, pofteu-cgjgxqrk-arnmwow, lisinopril, estradiol, tamoxifen, pioglitazone, omeprazole, calcium citrate-vitamin [...] PVR 0 ml documented in this encounter [facility] 04-25-2024 Note HNO ID: [id number] Author: ?, ?, ? Service: ? Author Type: ? Type: Progress Notes Filed: 04/25/2024 09:28 Note Text: PVR [address] [facility] 04-20-2024 Telephone encounter Note Left message for patient to return call to office Ori Moody MA [facility] 04-20-2024 Miscellaneous Notes Left message [...] negative for infection. documented in this encounter [facility] 04-20-2024 Telephone encounter Note I have placed referral to urology for her. [facility] 04-20-2024 Telephone encounter Note Patient [...] she should proceed with? Jennifer Szymanski MA [facility] 04-20-2024 Telephone encounter Note Urine culture negative for infection. [facility] 04-19-2024 Telephone encounter Note Patient called and notified that urine culture order placed. Patient is coming in to lab today. Sylwia Kirk RN [facility] 04-19-2024 Miscellaneous Notes Patient called [...] couple of weeks. Patient has appointment with attorney recruiter on Wednesday. Patient asking if labs reflect why she would not have any energy? Patient does not have joint pain or rash. Please review and advise, Sylwia Kirk RN documented in this encounter [facility] 04-18-2024 Telephone encounter Note Pt states she is willing to come in to give a urine sample Please place order for lab urine Ori Moody MA [facility] 04-18-2024 Telephone encounter Note Can you find out if patient can come in and give urine sample for urine culture to ensure it is not infection? [facility] 04-18-2024 Telephone encounter Note TC to patient who states she has had an increase in urinary frequency but she has also increased her water intake so does not think they are related. Patient denies pain or burning with urination. Agreeable to starting Vit D and will make sure to keep appointment with Cardio. MADDISON Kaur T [facility] 04-18-2024 Telephone encounter Note Please find out if patient is having any urinary symptoms as her urine was abnormal. Also her vitamin d is low and I would recommend adding a separate vitamin d 5,000 units daily. [facility] 04-18-2024 Telephone encounter Note Patient calls and states that today feels like she has no energy. Patient states that this has been off and on for the past couple of weeks. Patient has appointment with attorney recruiter on Wednesday. Patient asking if labs reflect why she would not have any energy? Patient does not have joint pain or rash. Please review and advise, Sylwia Kirk RN [facility] 04-17-2024 Instructions Francine Madrid APRN.CNP - [...] review all the medicines you take, even wodg-dwh-ppdqwrm medicines. As you get older, the way [...] certain medical conditions. 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 CABG Diabetes Father Diabetes Paternal Grandmother Diabetes Maternal Grandfather other (Lung cancer) Brother other (suicide) Son may of been depression Patient Allergies ALLERGIES Allergen Reactions Brilinta [Ticagrelo* Shortness of Breath Crestor [Rosuvastat* Myalgia Keflex [Cephalexin] Other: See Comments facial flushing Lipitor [Atorvastat* Other: See Comments myalgia Lovastatin Other: See Comments myalgia [place] [Hydrocodone-* Itching Current Medications Current Outpatient Medications [...] Take 2 tablets by mouth once daily. guhhym-ryzbgemc-tohwswu (CREON) 12,000-38,000 -60,000 unit delayed release capsule [...] DOXYCYCLINE HYCLATE 100 MG TABLET Francine Madrid APRN.TOOL MACHINE SETUP OPERATOR documented in this encounter [facility] 03-23-2024 Telephone encounter Note The following approved medication requests have been transmitted electronically. Requested Prescriptions Signed Prescriptions Disp Refills amoxicillin-clavulanate potassium (AUGMENTIN) 875-125 mg per tablet 20 tablet 0 Sig: Take 1 tablet by mouth two times a day for 10 days. Authorizing Provider: CLIFTON HUNG MD [facility] 03-23-2024 Miscellaneous Notes The following approved medication requests have been transmitted electronically. Requested Prescriptions Signed Prescriptions Disp Refills amoxicillin-clavulanate potassium (AUGMENTIN) 875-125 mg per tablet 20 tablet 0 Sig: Take 1 tablet by mouth two times a day for 10 days. Authorizing Provider: CLIFTON HUNG MD Nancy from [facility] calls and reports that pharmacy received order for cefadroxil. Patient reported to her that she is highly allergic to cephalexin which is in the same class as ordered medication. Pharmacy asking if provider wants to change medication? Please review and advise, Sylwia Kirk RN documented in this encounter [facility] 03-23-2024 Telephone encounter Note Nancy from [facility] calls and reports that pharmacy received order for cefadroxil. Patient reported to her that she is highly allergic to cephalexin which is in the same class as ordered medication. Pharmacy asking if provider wants to change medication? 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 CABG Diabetes Father Diabetes Paternal Grandmother Diabetes Maternal Grandfather other (Lung cancer) Brother other (suicide) Son may of been depression Patient Allergies ALLERGIES Allergen Reactions Brilinta [Ticagrelo* Shortness of Breath Crestor [Rosuvastat* Myalgia Keflex [Cephalexin] Other: See Comments facial flushing Lipitor [Atorvastat* Other: See Comments myalgia Lovastatin Other: See Comments myalgia [place] [Hydrocodone-* Itching Current Medications Current Outpatient Medications [...] Take 2 tablets by mouth once daily. bnqiff-fhfgbgvs-ggyldyq (CREON) 12,000-38,000 -60,000 unit delayed release capsule [...] Clifton Hung MD documented in this encounter [facility] 03-15-2024 Telephone encounter Note Patient notified. Reviewed directions. Updated pharmacy to [facility]. Caro Hernandez RN [facility] 03-15-2024 Miscellaneous Notes Patient notified. Reviewed directions. Updated pharmacy to [facility]. Caro Hernandez RN Vaginal estrace cream to be prescribed - please verify pharmacy. Please notify patient and review use. Sima Dumont APRN.ELIZABETH Patient saw Oncology providers ok'd estrogen cream. Please advise. documented in this encounter [facility] 03-14-2024 Telephone encounter Note Vaginal estrace cream to be prescribed - please verify pharmacy. Please notify patient and review use. Sima Dumont APRN.TOOL MACHINE SETUP OPERATOR [facility] 03-14-2024 Telephone encounter Note Patient saw Oncology providers ok'd estrogen cream. Please advise. [facility] 03-14-2024 History of Present illness Narrative Chief Complaint Patient presents with: Established Patient HPI: Dom Avila is a 68 year old female who presents here today for follow up DCIS. Per Dr. 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 - Continue follow up with PCP/GI/Cards/[employer] DES[employer]. - Mammogram due March 2025. - Follow up in 6 months. - Pt. aware to call office with any questions/concerns. The patient indicates understanding of these issues and agrees with the plan. All documentation from previous visit of 08/27/23-Dr. Georges/myself was copied and pasted, documentation has been reviewed and edited as necessary for today's visit. Chad Mariee APRN.ELIZABETH documented in this encounter [facility] 03-09-2024 Note Formatting of this n ote might be different from the original. March 10, 2024 PID: [id number] Dmo Avila [address] [place] [address] Dear Ms. Avila, We are pleased to [...] report will be kept on file at [facility] as part of your permanent medical record and are available for your continuing care. Thank you for allowing us to help in meeting your health care needs. Sincerely, Dr. Hwang Interpreting Radiologist [facility] (Normal over 40) [facility] 03-09-2024 Miscellaneous Notes March 10, 2024 PID: [id number] Dom Avila [address] [place] [address] Dear Ms. Avila, We are pleased to [...] report will be kept on file at [facility] as part of your permanent medical record and are available for your continuing care. Thank you for allowing us to help in meeting your health care needs. Sincerely, Dr. Hwang Interpreting Radiologist [facility] (Normal over 40) documented in this encounter [facility] 03-09-2024 History of Present illness [...] PATIENT PRESENTS WITH AN IMPLANTABLE OR ATTACHED CIGARETTE INSPECTOR: No RADIOLOGY DEPARTMENT: Mammography PERIPHERAL IV DATA: Not applicable SIGNED BY: Brandon Snow March 09, 2024 8:46 AM documented in this encounter [facility] 02-29-2024 Note Addended by: CHERISE FRANCIS on: 02/29/2024 09:24 AM Modules accepted: Orders [facility] 02-29-2024 Miscellaneous Notes Addended by: CHERISE HYATT on: 02/29/2024 09:24 AM Modules accepted: Orders Pt has changed pharmacy to [facility] and needs new rx sent to them. [...] Em Mahmood LPN. documented in this encounter [facility] 02-29-2024 Telephone encounter Note Pt has changed pharmacy to [facility] and needs new rx sent to them. [...] Please advise. Thank you. Em Mahmood LPN. [facility] 02-15-2024 Miscellaneous Notes Patient has [...] Delmer Valdes LPN. documented in this encounter [facility] 01-26-2024 Miscellaneous Notes Patient has [...] Latrice Dunn LPN. documented in this encounter [facility] 01-23-2024 Miscellaneous Notes The following approved medication requests have been transmitted electronically. Requested Prescriptions Signed Prescriptions Disp Refills pioglitazone (ACTOS) 15 mg tablet 30 tablet 5 Sig: Take 1 tablet by mouth once daily. Clifton Hung MD documented in this encounter [facility] 01-18-2024 Instructions Sima Dumont APRN.ELIZABETH - 01/18/2024 2:38 PM EDT Discuss with oncology use of vaginal estrogen cream for genitourinary syndrome of menopause. documented in this encounter [facility] 01-18-2024 History of Present illness Narrative Exhibitions Curator offered: Patient declines. 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 CABG Diabetes Father Diabetes Paternal [...] Take 2 tablets by mouth once daily. uerclt-aexciubn-kdxjdlj (CREON) 12,000-38,000 -60,000 unit delayed release capsule [...] external genitalia normal, normal Bartholin's glands, urethra, Sabina's glands, no vulvar lesions, physiologic discharge present, [...] results. Follow- up as needed. Sima Dumont APRN.TOOL MACHINE SETUP OPERATOR Medical Decision Making: Problems: Moderate: 1+ chronic illnesses with change and 2+ stable chronic illnesses Data: Unique test(s) ordered: 3+ Medical Decision Making Level: 4 - Moderate documented in this encounter [facility] 01-18-2024 Miscellaneous Notes Addressed in TE 01/17/24. Em Mahmood LPN documented in this encounter [facility] 01-18-2024 Miscellaneous Notes Called the [...] lab work for today at 3pm in [facility]. I will be there visiting Dr. [...] Em Mahmood LPN documented in this encounter [facility] 01-14-2024 History of Present illness Narrative Chief Complaint Patient presents with: Follow Up: Blood pressure HPI Dom Avila is a 68 year old female who presents here today for Above Complaints.. Patient presents for bp follow up. Patient reports home bp 120-130's. Patient was seen by Octaviano Humphries at [facility] who started patient on amlodipine. Past medical history, appointments, medications, allergies reviewed. 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 CABG Diabetes Father Diabetes Paternal Grandmother Diabetes Maternal Grandfather other (Lung cancer) Brother other (suicide) Son may of been depression Patient Allergies ALLERGIES Allergen Reactions Brilinta [Ticagrelo* Shortness of Breath Crestor [Rosuvastat* Myalgia Keflex [Cephalexin] Other: See Comments facial flushing Lipitor [Atorvastat* Other: See Comments myalgia Lovastatin Other: See Comments myalgia [place] [Hydrocodone-* Itching Current Medications Current Outpatient Medications on File Prior to Visit Medication Sig lisinopril (ZESTRIL) 30 mg tablet Take 1 tablet by mouth two times a day. Calcium Citrate-Vitamin D3 (CITRACAL+D) 315 mg-6.25 mcg (250 unit) tab Take 2 tablets by mouth once daily. vlvjst-rufvfjqr-nunrrti (CREON) 12,000-38,000 -60,000 unit delayed release capsule [...] - Recommend regular aerobic exercise Francine Madrid APRN.TOOL MACHINE SETUP OPERATOR documented in this encounter [facility] 01-10-2024 History of Present illness Narrative Scan on 01/07/2024 2:33 PM by Provider, KELLY Carnes: Consultation - Ophthalmology documented in this encounter [facility] 12-31-2023 Miscellaneous Notes Addended by: FRANCINE MADRID on: 12/31/2023 02:08 PM Modules accepted: Orders documented in this encounter [facility] 12-31-2023 History of Present illness Narrative Chief Complaint Patient presents with: Follow Up: Blood pressure HPI Dom Avila is a 68 year old female who presents here today for Above Complaints.. Patient presents for BP check was in [facility] ER 12/28 for elevated BP. 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 CABG Diabetes Father Diabetes Paternal Grandmother Diabetes Maternal Grandfather other (Lung cancer) Brother other (suicide) Son may of been depression Patient Allergies ALLERGIES Allergen Reactions Brilinta [Ticagrelo* Shortness of Breath Crestor [Rosuvastat* Myalgia Keflex [Cephalexin] Other: See Comments facial flushing Lipitor [Atorvastat* Other: See Comments myalgia Lovastatin Other: See Comments myalgia [place] [Hydrocodone-* Itching Current Medications Current Outpatient Medications on File Prior to Visit Medication Sig lisinopril (ZESTRIL) 30 mg tablet Take 1 tablet by mouth two times a day. Calcium Citrate-Vitamin D3 (CITRACAL+D) 315 mg-6.25 mcg (250 unit) tab Take 2 tablets by mouth once daily. kwqenh-vgddxmgx-bivbtpu (CREON) 12,000-38,000 -60,000 unit delayed release capsule [...] - HYDROCHLOROTHIAZIDE 12.5 MG CAPSULE Francine Madrid APRN.TOOL MACHINE SETUP OPERATOR documented in this encounter [facility] 12-28-2023 History of Present illness Narrative Scan on 12/28/2023 3:13 AM by Provider, Deyvi, KELLY: Consultation - Emergency Medicine documented in this encounter [facility] 12-22-2023 Discharge summary Note Date/Time December 22, 2023 2:00pm [facility] Medical Records Department [address] [place] [address] Emergency Department Summary 12/22/23 MR#: [id number] Acct: [id number] Name: DOM AVILA Rep #:[id number] : 1955 68 From: Caro Pedro MD [...] mild diarrhea but no nausea or vomiting. [facility] Medical History Anxiety Arthritis Atherosclerotic heart disease of [place] coronary artery without angina pectoris Breast cancer, [...] PO DAILY 11/30/22 [History Last Taken Unknown] ccpqej-ltxudvqc-jmpigaj 36,000-114,000-180,000 unit capsule,delay rel (Creon) See Rx [...] History Mother Cancer pancreatic cancer Father , [place] age 20's (premature CAD), 3 vessel CABG, [...] your Primary Care Provider. Call [facility] ([phone]) or report to the closest Emergency Room. Call 911 if necessary. 12/22/23 1598 <Electronically signed by Caro Pedro MD> Cosigner Signature (if applicable): CC: Dr. 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 CABG Diabetes Father Diabetes Paternal Grandmother Diabetes Maternal Grandfather other (Lung cancer) Brother other (suicide) Son may of been depression Patient Allergies ALLERGIES Allergen Reactions Brilinta [Ticagrelo* Shortness of Breath Crestor [Rosuvastat* Myalgia Keflex [Cephalexin] Other: See Comments facial flushing Lipitor [Atorvastat* Other: See Comments myalgia Lovastatin Other: See Comments myalgia [place] [Hydrocodone-* Itching Current Medications Current Outpatient Medications on File Prior to Visit Medication Sig Calcium Citrate-Vitamin D3 (CITRACAL+D) 315 mg-6.25 mcg (250 unit) tab Take 2 tablets by mouth oncedaily. fhnvnt-uibjmlao-chphliz (CREON) 12,000-38,000 -60,000 unit delayed release capsule [...] 327.23, ICD10: G47.33 -Wears CPAP Francine Madrid APRN.TOOL MACHINE SETUP OPERATOR [facility] History of Present illness Narrative* Latrice Dunn LPN - 09/15/2023 8:30 AM EST Scan on 09/14/2023 5:34 PM by Provider, External, PAJosephC: Consultation - Ophthalmology documented [facility] History of Present illness Narrative* Natalie Presley Ma - 08/31/2023 11:37 AM EDT Cardiology OV. Scan on 08/30/2023 2:05 PM by Provider, KELLY Carnes: Consultation - Cardiology documented [facility] this [facility] History of Present illness Narrative* Latrice Dunn LPN - 08/02/2023 7:08 AM EDT Scan on 07/30/2023 6:04 PM by Provider, KELLY Carnes: Consultation - Ophthalmology documented [facility] Instructions* Patient Instructions* Sima Dumont APRN.TOOL MACHINE SETUP OPERATOR - 07/23/2023 11:44 AM EDT Silicone based [...] avoid scratching at night. [facility] History of Present illness Narrative* Sima Dumont APRN.ELIZABETH - 07/23/2023 10:58 AM EDT Exhibitions Curator offered: Patient declines. 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 CABG Diabetes Father Diabetes Paternal [...] tab Take 2 tablets by mouth oncedaily. ynqyzd-wizdqvuj-kgbsrwe (CREON) 12,000-38,000 -60,000 unit delayed release capsule [...] external genitalia normal, normal Bartholin's glands, urethra, Sabina's glands, no vulvar lesions, small amount thick [...] Level: 4 - Moderate documented [facility] History of Present illness Narrative* Latrice Dunn LPN - 06/15/2023 10:08 AM EDT Scan on 06/14/2023 2:02 PM by ProviderDeyvi PA-C: Consultation - Ophthalmology documented in this encounterOhio [facility] History of Present illness Narrative* Shakeel Yang MA - 06/07/2023 3:57 PM EDT Scan on 06/07/2023 8:43 AM by Deyvi Yadav PA-C: Consultation - Ophthalmology HM oscar. Shakeel Yang MA documented in this encounterOhio [facility] History of Present illness Narrative* Latrice Dunn LPN - 04/09/2023 11:47 AM EDT Scan on 04/08/2023 4:51 PM by External Provider, KELLY: Consultation - Ophthalmology documented in this encounterOhio [facility] Miscellaneous Notes* Telephone Encounter - Natalie Presley Ma - 04/09/2023 8:56 AM EDT See update from pt. Natalie Presley Ma documented in this encounterOhio [facility] Instructions* Patient Instructions* Clifton Hung MD - 04/08/2023 2:04 PM EDT Please get labs done on or after 09/24/2023 prior to your next visit. documented in this encounterOhio [facility] History of Present illness Narrative* Clifton Hung MD - 04/08/2023 12:53 PM EDT Images from the original note were not included. 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 Colon polyp 2011 Controlled type 2 diabetes mellitus without complication, without long-term current use of insulin ([facility]) 10/22/2016 De Quervain's tenosynovitis, left 07/31/2019 Diabetic eye exam ([facility]) 01/16/2016 Lat done: 12/03/2017 No retinopathy Ductal [...] Date 2D ECHO (EXEP) 06/30/2017 EF=65%, trivial FL, TI and 1+ PI Unchanged from 04/2017 2D ECHO (EXEP) 05/14/2021 EF=60%, 1+ TI, trival [place], AI, PI 2D ECHO (EXEP) 09/16/2021 EF=60%, [...] [Rosuvastatin], Keflex [Cephalexin], Lipitor [Atorvastatin], Lovastatin, and [place] [Hydrocodone-Acetaminophen] Medications reviewed: Yes FAMILY HISTORY Problem Relation Age of Onset other (Pancreatic cancer) Mother Coronary Artery Disease Father 25 [place] @ 25. 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 CABG Diabetes Father Diabetes Paternal Grandmother Diabetes Maternal Grandfather other (Lung cancer) Brother other (suicide) Son may of been depression Patient Allergies ALLERGIES Allergen Reactions Brilinta [Ticagrelo* Shortness of Breath Crestor [Rosuvastat* Myalgia Keflex [Cephalexin] Other: See Comments facial flushing Lipitor [Atorvastat* Other: See Comments myalgia Lovastatin Other: See Comments myalgia [place] [Hydrocodone-* Itching Current Medications Current Outpatient Medications [...] Lymph 1.00 - 4.00 k/uL 1.43 1.36 [place]% % 9.4 8.0 Abs [place] <0.87 k/uL 0.45 0.40 Eosin% % 1.3 [...] Negative Ketones, Urine Trace, Negative Negative Specific [place], Ur 1.005 - 1.030 1.017 Hemoglobin/Blood,Ur Negative, [...] diet and regular exercise 6. 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) - [...] which included preparing to see the patient, qpde-wn-fbvn patient care, completing clinical documentation, performing a medically appropriate examination, counseling and educating the patient/family/caregiver and ordering medications, tests, or procedures. Clifton Hung MD documented in this encounterOhio State University [facility]04-21-2023 History of Present illness Narrative* Chad Mariee, REED OR WIND INSTRUMENT REPAIRER.TOOL MACHINE SETUP OPERATOR - 02/26/2023 9:51 AM EDT Chief Complaint Patient presents with: Established Patient HPI: Dmo Avila is a 67 year old female who presents here today for follow up DCIS. Per Dr. 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 Chad Mariee APRN.CNP documented in this encounterOhio State University [facility]04-19-2023 History of Present illness Narrative* [...] 24, 2023 9:16 AM documented in this encounterOhio State University [facility]04-17-2023 History of Present illness Narrative* Latrice Dunn LPN - 02/22/2023 1:07 PM EDT Scan on 02/22/2023 12:59 PM by External Provider: Consultation - Neurology documented in this encounterOhio State University [facility] Center04-14-2023 History of Present illness Narrative* Latrice Dunn LPN - 02/19/2023 7:32 AM EDT Scan on 02/18/2023 12:54 PM by External Provider: Consultation - Cardiology documented in this encounterOhio State University [facility] Center04-04-2023 History of Present illness Narrative* Cherise Sifuentes PA-C - 02/09/2023 7:31 AM EDT Chief Complaint Patient presents with: Cough: congestion HPI Dom Avila is a 67 year old female who presents here today for Above Complaints.. Patient has had URI symptoms since 01/31/23. Was seen in [facility] care on 02/05. 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 CABG Diabetes Father Diabetes Paternal Grandmother Diabetes Maternal Grandfather other (Lung cancer) Brother other (suicide) Son may of been depression Patient Allergies ALLERGIES Allergen Reactions Brilinta [Ticagrelo* Shortness of Breath Crestor [Rosuvastat* Myalgia Keflex [Cephalexin] Other: See Comments facial flushing Lipitor [Atorvastat* Other: See Comments myalgia Lovastatin Other: See Comments myalgia [place] [Hydrocodone-* Itching Current Medications Current Outpatient Medications [...] prn. Cherise Sifuentes PA-C documented in this encounterOhio State University [facility] Center04-03-2023 Miscellaneous Notes* Telephone Encounter - [...] patient. Monique Dailey LPN documented in this encounterOhio State University Wex[facility] Center03-31-2023 History of Present illness Narrative* Lori Barriga APRN.TOOL MACHINE SETUP OPERATOR - 02/05/2023 9:43 AM EDT Subjective The history is provided by the patient. No bilingual speech language pathologist was used. HPI Domgabbie Avila is a 67 year old female who presents today for CC of cough and congestion, this started in past 5 days. Congestion is more in chest. She was exposed to covid at [employer], but beingday 5 and improving declines testing. 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 Lori Barriga APRN.ELIZABETH documented in this encounterOhio State University [facility] Center03-31-2023 Instructions* Patient Instructions* Lori Barriga [...] with PCP for re-evaluation. documented in this encounterOhio State University Wexner [facility] Center02-09-2023 Miscellaneous Notes* Telephone Encounter - [...] cancer. Please advise patient. documented in this encounterOhio State University Wex[facility] Center02-03-2023 Miscellaneous Notes* Telephone Encounter - Clifton Hung MD - 12/11/2022 8:37 PM EST Noted. documented in this encounterOhio State University Wexner Medical Center02-03-2023 Miscellaneous Notes* Telephone Encounter - Laura Ayala LPN - 12/11/2022 10:12 AM EST Please see pt's [email or web address] message,pt stated that Flagyl was not sent to her pharmacy. See pended order below and advise. Laura Ayala LPN documented in this encounterOhio State University Wexner Medical Center02-01-2023 Instructions* Patient Instructions* Sima Dumont APRN.TOOL MACHINE SETUP OPERATOR - 12/09/2022 7:25 AM EST Continue Revaree [...] avoid scratching at night. documented in this encounterOhio State University Wex[facility] Center02-01-2023 History of Present illness Narrative* Sima Dumont APRN.CNP - 12/09/2022 7:01 AM EST Exhibitions Curator offered: Patient declines. Dom Avila is a 67 year old female who presents for onset of vaginal discharge, burning and mild itching 2 week ago. Treated with Monistat 7. Now has vaginal discharge only. Treated for COVID with Paxlovid around [place] and read that yeast infection is a [...] external genitalia normal, normal Bartholin's glands, urethra, Sabina's glands, no vulvar lesions, cervix surgically absent, [...] which included preparing to see the patient, hxgk-ak-zyvv patient care, completing clinical documentation, obtaining and/or reviewing separately obtained history, performing a medically appropriate examination, counseling and educating the pat ient/family/caregiver, and ordering medications, tests, or procedures. documented in this encounterOhio State University Wexner [facility] Center01-24-2023 Procedure [facility]01-24-2023 Procedure [facility]01-24-2023 Procedure [facility]01-24-2023 Procedure [facility]01-24-2023 History and physical note Author Carson Alcantar [facility] December 01, 2022 11:50am Note Date/Time December 01, 2022 1 1:50am [facility] Medical Records Department [address] [place] [id number] History & Physical Exam 12/01/22 1148 MR#: [id number] Acct: [id number] Name: DOM AVILA Rep #:[id number] : 1955 67 From: Carson Alcantar DO PCP: Dr. Clifton Hung MD Status:[facility] Location: [place] [address] History and Physical Date of Admission: 12/01/22 [...] prn, rarely takes NSAIDs. 09/03/22 labs at [facility]: CBC unremarkable, hgb 13.5, plts 252, amylase 74, lipase 133 high, normal hepatic function panel 09/15/22 CT chest/abd/pelvis at [facility]: subcentimeter hypodense too small to characterize left hepatic lesion Has upcoming CT at [facility] to f/u the liver lesion 09/09/22 RUQ US at [facility]: fatty liver PMH includes DM2, SEBAS, [...] Mood: euthymic mood Quality Reporting Tobacco Screening ([facility] 138) Smoking Status: Former smoker Assessment and [...] Clifton Hung MD; Carson Alcantar DO~ Signed [facility] Work Phone: [phone]) [phone] Miscellaneous Notes* Telephone Encounter - Suki Ambrocio LPN - 11/25/2022 12:12 PM EST Patient notified. Suki Ambrocio LPN * Telephone Encounter - Chad Mariee APRN.ELIZABETH - 11/25/2022 12:07 PM EST Please inform pt. that her CT is stable. No new findings. Follow up as scheduled. Thank you. 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 CABG Diabetes Father Diabetes Paternal [...] Patient agreeable to treatment plan. Shaneka Yang APRN.TOOL MACHINE SETUP OPERATOR documented in this encounterOhio State University We[facility] Center01-04-2023 Instructions* Patient Instructions* Matthew Joaquin [...] (or decreased sensation in your feet) a customer accounts advisor should always cut your toenails. Be Careful [...] Go to your health care provider or customer accounts advisor to treat these conditions. 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 CABG Diabetes Father Diabetes Paternal [...] Objective: Patient presents to clinic ambulating in [facility] Constitutional: Pt is a well [...] toenail to L hallux. documented in this encounterOhio State University [facility] Center12-27-2022 Instructions* Patient Instructions* Cherise Sifuentes PA-C - 11/03/2022 2:23 PM EST FACT SHEET FOR PATIENTS, PARENTS, AND CAREGIVERS EMERGENCY USE AUTHORIZATION (EUA) OF PAXLOVID FOR CORONAVIRUS DISEASE 2019 (COVID-19) You are being given this Fact Sheet because your healthcare provider believes it is necessary to provide you with PAXLOVID for the treatment of yqjs-uz-yxjydvwh coronavirus disease (COVID-19) caused by the SARS-CoV-2 [...] virus. COVID-19 illnesses have ranged from very dqfg-cw-brkvzq, including illness resulting in . While information [...] is an investigational medicine used to treat ozcv-fw-ailoqmia COVID-19 in adults and children [12 years [...] of using PAXLOVID to treat people with pizl-nw-wcqxojch COVID-19. The FDA has authorized the emergency use of PAXLOVID for the treatment of kuje-is-thukgzhx COVID-19in adults and children [12 years of [...] the medicines you take, including prescription and xzmc-phh-vkgupcx medicines, vitamins, and herbal supplements. Some medicines [...] (remdesivir) is FDA-approved for the treatment of ummo-xx-fplozgqj COVID-19 in certain adults and children. Talk with your doctor to see if Veklury is appropriate for you. Like PAXLOVID, FDA may also allow for the emergency use of other medicines to treat people with COVID-19. Go to https://www.fda.gov/scddaueef-ebzqnbkfwjby-pojwtlstdbb/qnp-xxhnb-dyalkfptbj-and- policy-framework/cwdvniywg-twn-rviocrwhfoulf for information on the emergency use of [...] if I am or ? There is medical technologist hematology treating women or mothers with PAXLOVID. For [...] not go away. Report side effects to [employer] at www.fda.gov/medENT Biotech Solutionstch or call 1-409-GBY4193 or you can reportside effects to [employer]. at the contact information provided below. Website Fax number Telephone number [email or web address] How should I store PAXLOVID? Store PAXLOVID [...] (EUA). The EUA is supported by a Hyperbaric Technologist of Health and Human Service (HHS) declaration that circumstances exist to justify the emergency use of drugs and biological productsduring the COVID-19 pandemic. PAXLOVID for the treatment of zsaf-ot-phjjiuzz COVID-19 in adults and children [12 years [...] telephone number provided below. Website Telephone number wwwOmateSLUQE46xqpiMmUn[facility] (2-117-W94-ARNJ) You can also go to [email or web address].[employer] or call for more information. Pfizer Distributed by [employer] [place] [address] [email or web address] Revised: 23 January 2022 documented in this encounterOhio State University We[facility]ner [facility] Center12-27-2022 Miscellaneous Notes* Telephone Encounter - Cherise Sifuentes PA-C - 11/03/2022 2:18 PM EST Called patient to discuss: Nirmatrelvir/Ritonavir (Paxlovid) Eligibility and Patient Discussion [facility] Formulary Restriction Criteria: Adult outpatients [...] my chart message today. 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 CABG Diabetes Father Diabetes Paternal [...] plan. Shaneka Yang APRN.ELIZABETH documented in this encounterOhio State University [facility] Center12-21-2022 Miscellaneous Notes* Telephone Encounter - [...] you. 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 CABG Diabetes Father Diabetes Paternal Grandmother Diabetes Maternal Grandfather other (Lung cancer) Brother other (suicide) Son may of been depression Patient Allergies ALLERGIES Allergen Reactions Brilinta [Ticagrelo* Shortness of Breath Crestor [Rosuvastat* Myalgia Keflex [Cephalexin] Other: See Comments facial flushing Lipitor [Atorvastat* Other: See Comments myalgia Lovastatin Other: See Comments myalgia [place] [Hydrocodone-* Itching Current Medications Current Outpatient Medications [...] PNEUMOCOCCAL IMMUNIZATION PPSV 23 7. 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) - ICD9: 414.01, 413.9, ICD10: I25.118 Cont with cardio 8. Ductal carcinoma in situ (DCIS) of left breast - ICD9: 233.0, ICD10: D05.12 Cont with oncology 9. History of hyperparathyroidism - ICD9: V12.29, ICD10: Z86.39 Follow up in 6 months for wellness labs prior.. Cherise Sifuentes PA-C documented in this encounterOhio State University Wex[facility] Center11-11-2022 Miscellaneous Notes* Telephone Encounter - eSema Escobar RN - 09/18/2022 10:15 AM EST [...] reduced fat in diet. documented in this encounterOhio State University Wexner Medical Center11-09-2022 Miscellaneous Notes* Telephone Encounter - JASMYNE Kaur - 09/16/2022 4:07 PM EST Pt notifying provider that she has seen testing results for CT. Please advise. Thank you. JASMYNE Kaur documented in this encounterOhio State University Wexner Medical Center11-09-2022 Miscellaneous Notes* Telephone Encounter - Sylwia Hedrick - 09/16/2022 3:26 PM EST Spoke with patient and scheduled CT. Sylwia Hedrick * Telephone Encounter - Suki Ambrocio LPN - 09/16/2022 2:54 PM EST Patient is aware of all information and verbalized understanding. Patient will contact [facility] [place] to schedule. PSS- CT abd/pelvis show a subcentimeter hypodense too small to characterize left hepatic lesion. Will plan to repeat CT in 10-12 weeks. Patient is aware of this information. Please contact patient to schedule CT. She is expecting the call. Suki Ambrocio LPN * Telephone Encounter - Brittni Villar Pss - 09/16/2022 2:16 PM EST Please have patient call the [facility] [place] at [phone] to schedule dx mammogram when relaying information below. Thank you. * Telephone Encounter - Chad Mariee APRN.TOOL MACHINE SETUP OPERATOR - 09/16/2022 9:15 AM EST Please inform pt. that her CT chest shows no acute changes. Radiologist is recommending a L dx mammogram/US to further evaluate ? soft tissue nodular opacity. Please schedule L dx mamm/US soon. CT abd/pelvis show a subcentimeter hypodense too small to characterize left hepatic lesion. Will plan to repeat CT in 10-12 weeks. Thank you. Chad Mariee APRN.TOOL MACHINE SETUP OPERATOR documented in this encounterOhio State University Wexner Medical Center11-02-2022 Miscellaneous Notes* Telephone Encounter - Latrice Dunn LPN - 09/09/2022 2:28 PM EDT Pt was notified of results via phone. See TE 09/09/22. Latrice Dunn LPN documented in this encounterOhio State University Wexner Medical Center11-02-2022 Miscellaneous Notes* Telephone Encounter - [...] start. Cherise Sifuentes PA-C documented in this encounterOhio State University We[facility] Center11-02-2022 History of Present illness Narrative* [...] 09, 2022 8:26 AM documented in this encounterOhio State University Wexner [facility] Center11-01-2022 History of Present illness Narrative* Jocelyne Sands LPN - 09/08/2022 9:11 AM EDT Patient presented for H. Pylori Breath testing per Dr Hung. Obtained baseline sample at 9:05am. Patient then drank Pranactin-Citric solution. Waited full 15 minutes and obtained second sample at 9:22am. Patient tolerated testing well with no problems. LOT # [id number] EXP 09/07/2024 Jocelyne Sands LPN documented in this encounterOhio State University Wexner Medical Center10-31-2022 Miscellaneous Notes* Telephone Encounter - Shakeel Yang MA - 09/07/2022 3:08 PM EDT Patient contacted and scheduled. Given instructions voiced understanding. Shakeel Yang MA documented in this encounterOhio State University Wexner Medical Center10-27-2022 History of Present illness Narrative* [...] melena or hematochezia. Sometimes the stool is commercial energy rater in color. No longer has a gal bladder. No recent fevers. Has a CT of the abdomen and pelvis set up for 09/15/2022. Mother with Hx of pancreatic cancer. Past medical history, appointments, medications, allergies reviewed. Previous Medical History PAST MEDICAL HISTORY Diagnosis Date Amaurosis fugax 10/29/2017 TIA; right visual disturbance 06/2017 Arthritis tendonitis, arthritis 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 (HCC) [...] Date 2D ECHO (EXEP) 06/30/2017 EF=65%, trivial FL, TI and 1+ PI Unchanged from 04/2017 2D ECHO (EXEP) 05/14/2021 EF=60%, 1+ TI, trival FL, AI, PI 2D ECHO (EXEP) 09/16/2021 EF=60%, [...] cancer) Mother Coronary Artery Disease Father 25 FL @ 25. CABG Diabetes Father Diabetes Paternal Grandmother Diabetes Maternal Grandfather other (Lung cancer) Brother other (suicide) Son may of been depression Patient Allergies ALLERGIES Allergen Reactions Brilinta [Ticagrelo* Shortness of Breath Crestor [Rosuvastat* Myalgia Keflex [Cephalexin] Other: See Comments facial flushing Lipitor [Atorvastat* Other: See Comments myalgia Lovastatin Other: See Comments myalgia [place] [Hydrocodone-* Itching Current Medications Current Outpatient Medications [...] 65+ Clifton Hung MD documented in this encounterOhio State University [facility] Center10-21-2022 Miscellaneous Notes* Telephone Encounter - [...] up. Shakeel Yang MA documented in this encounterOhio State University Wexner [facility] Center10-21-2022 Instructions* Patient Instructions* Sima Dumont APRN.CNP - 08/28/2022 10:40 AM EDT Silicone based lubricant such as Astroglide. Look for one that is hypoallergenic. Continue Revaree. Continue using Aquaphor and minimize use of incontinence pads to protect the skin. documented in this encounterOhio State University Wexner Medical Center10-21-2022 History of Present illness Narrative* Sima Dumont, ELINA - 08/28/2022 10:22 AM EDT Exhibitions Curator offered: Patient declines. Dom Avila is a [...] L2 SAB0 IAB0 Ectopic0 Multiple0 Live Births3 [place]umpman History LMP: Hysterectomy Age at Menarche: Age at First : Age at Menopause: Dumpman History Comments: Sexual Activity: Yes; Male Contraception: No contraception data on record PAST MEDICAL HISTORY Diagnosis Date Amaurosis fugax 10/29/2017 TIA; right visual disturbance 06/2017 Arthritis tendonitis, arthritis 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 (HCC) [...] Date 2D ECHO (EXEP) 06/30/2017 EF=65%, trivial FL, TI and 1+ PI Unchanged from 04/2017 2D ECHO (EXEP) 05/14/2021 EF=60%, 1+ TI, trival FL, AI, PI 2D ECHO (EXEP) 09/16/2021 EF=60%, [...] cancer) Mother Coronary Artery Disease Father 25 FL @ 25. CABG Diabetes Father Diabetes Paternal [...] which included preparing to see the patient, lyep-ry-obuc patient care, completing clinical documentation, obtaining and/or reviewing separately obtained history, performing a medically appropriate examination, and counseling and educating the patient/family/caregiver. documented in this encounterOhio State University [facility]xner [facility] Center10-21-2022 History of Present illness Narrative* Chad Mariee APRN.CNP - 08/28/2022 8:25 AM EDT Chief Complaint Patient presents with: Established Patient: 6 MO FOLLOW UP HPI: Dom Avila is a 67 year old female who presents here today for follow up breast cancer. Per Dr. Georges previous note: H/o [id number] diabetes mellitus, hypertension, ASCAD, and TIA who [...] breast lumpectomy for DCIS on 04/08/2021 at [facility] Pathology (from [facility]) reveals - ductal carcinoma in situ...,size of DCIS - 1.0 x 0.4 cm...,architectural type - cribriform..., nuclear grade 1-2..., necrosis - present central (expansive comedo necrosis)..., biopsy cavity is 0.5 cm from closest anterior margin (which is skin)..., ER >95%, NC >95% Postoperative course is unremarkable with no [...] visit. Chad Mariee APRN.ELIZABETH documented in this encounterOhio [facility] Miscellaneous Notes* Telephone Encounter - [...] advise. Daniel Hill Pss documented in this encounterOhio State University [facility]09-01-2022 Instructions* Patient Instructions* Siam Dumont APRN.CNP - 07/09/2022 8:21 AM EDT [...] agents from your environment. documented in this encounterOhio State University [facility]09-01-2022 History of Present illness Narrative* Sima Dumont APRN.CNP - 07/09/2022 7:49 AM EDT Exhibitions Curator offered: Patient declines. Dom Avila is a [...] year for DCIS left breast ER >95%, NC>95% OB History T0 L2 SAB0 IAB0 Ectopic0 Multiple0 Live Births3 [place] History LMP: Hysterectomy Age at Menarche: Age at First : Age at Menopause: [place] History Comments: Sexual Activity: Yes; Male Contraception: No contraception data on record PAST MEDICAL HISTORY Diagnosis Date Amaurosis fugax 10/29/2017 TIA; right visual disturbance 06/2017 Arthritis tendonitis, arthritis 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 (HCC) [...] Date 2D ECHO (EXEP) 06/30/2017 EF=65%, trivial FL, TI and 1+ PI Unchanged from 04/2017 2D ECHO (EXEP) 05/14/2021 EF=60%, 1+ TI, trival FL, AI, PI 2D ECHO (EXEP) 09/16/2021 EF=60%, [...] cancer) Mother Coronary Artery Disease Father 25 FL @ 25. CABG Diabetes Father Diabetes Paternal [...] external genitalia normal, normal Bartholin's glands, urethra, Sabina's glands, no vulvar lesions, physiologic discharge present, [...] Level: 4 - Moderate documented in this encounterOhio [facility]08-31-2022 Miscellaneous Notes* Telephone Encounter - Clifton Hung MD - 07/08/2022 1:27 PM EDT Info noted. documented in this encounterOhio State University [facility]08-26-2022 Miscellaneous Notes* Telephone Encounter - Clifton Hung MD - 07/03/2022 8:06 AM EDT The following approved medication requests have been transmitted electronically. Requested Prescriptions Signed Prescriptions Disp Refills fluconazole (DIFLUCAN) 150 mg tablet 3 tablet 1 Si tab by mouth every other day for 3 doses Clifton Hung MD documented in this encounterOhio State University [facility]08-23-2022 History of Present illness Narrative* Martha Montoya PA-C - 06/30/2022 3:14 PM EDT This note was created using vendome [id number]. Subjective Dom Avila is a 66 year [...] disturbance 06/2017 Arthritis tendonitis, arthritis 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 (HCC) [...] Date 2D ECHO (EXEP) 06/30/2017 EF=65%, trivial FL, TI and 1+ PI Unchanged from 04/2017 2D ECHO (EXEP) 05/14/2021 EF=60%, 1+ TI, trival FL, AI, PI 2D ECHO (EXEP) 09/16/2021 EF=60%, [...] cancer) Mother Coronary Artery Disease Father 25 FL @ 25. CABG Diabetes Father Diabetes Paternal [...] DETECT Martha Montoya PA-C documented in this encounterOhio State University [facility]08-09-2022 Miscellaneous Notes* Telephone Encounter - Latrice Dunn LPN - 06/16/2022 12:27 PM EDT Please see pt's message. Latrice Dunn LPN documented in this encounterOhio State University [facility]04-20-2022 History of Present illness Narrative* Chad Mariee APRN.ELIZABETH - 02/25/2022 10:00 AM EDT Chief Complaint Patient presents with: Established Patient: SCP HPI: Dom Avila is a 66 year old female who presents here today for SCP/DCIS. Per Dr. Georges previous note: H/o [id number] diabetes mellitus, hypertension, ASCAD, and TIA who [...] breast lumpectomy for DCIS on 04/08/2021 at [facility] Pathology (from [facility]) reveals - ductal carcinoma in situ...,size of DCIS - 1.0 x 0.4 cm...,architectural type - cribriform..., nuclear grade 1-2..., necrosis - present central (expansive comedo necrosis)..., biopsy cavity is 0.5 cm from closest anterior margin (which is skin)..., ER >95%, NC >95% Postoperative course is unremarkable with no [...] visit. Chad Mariee APRN.ELIZABETH documented in this encounterOhio State University [facility]04-18-2022 Miscellaneous Notes* Letter - Mammography Coordinator - 02/23/2022 11:35 AM EDT February 23, 2022 PID: [id number] Dom Avila [address] [place] [address] Dear Ms. Avila, We are pleased to [...] report will be kept on file at [facility] as part of your permanent medical record and are available for your continuing care. Thank you for allowing us to help in meeting your health care needs. Sincerely, Dr. Benedict Interpreting Radiologist [facility] (Normal over 40) documented in this encounterOhio State University [facility]04-18-2022 History of Present illness Narrative* [...] 23, 2022 10:17 AM documented in this encounterOhio State University [facility]04-05-2022 Miscellaneous Notes* Telephone Encounter - Kassandra Mitchell Ma - 02/10/2022 1:25 PM EDT Last office visit: 09/26/21 F/u scheduled: 04/03/22 Kassandra Mitchell Ma documented in this encounterOhio State University [facility]02-01-2017 Evaluation note* Diagnosis Onset Date Resolution Status Essential hypertension chron ic Palpitations chronic Presence of stent in coronary artery December, [facility] Work Phone: [phone]) 466-818802-01-2017 Evaluation note* Diagnosis Onset Date Resolution Status Essential hypertension chron ic Palpitations chronic Presence of stent in coronary artery December, chronic Diarrhea chronic Elevated lipase chronic [facility] Work Phone: Evaluation note* Diagnosis Breast neoplasm, Tis (DCIS), left Encounter for screening mammogram for malignant neoplasm of breast Other screening mammogram [facility]* Diagnosis Breast neoplasm, Tis (DCIS), left- Primary documented in this encounter [facility] note* Diagnosis Onset Date Resolution Status Atherosclerotic heart diseas e of [place] coronary artery without angina pectoris chronic Essential hypertension chron ic Mixed hyperlipidemia chronic Palpitations chronic Presence of stent in coronary artery December, chronic [facility] Work Phone: Evaluation note* Diagnosis Nasal lesion- Primary Other diseases of nasal cavity and sinuses [facility]* Diagnosis Vagina itching- Primary Pruritus of genital organs Dysuria Urinary frequency Superficial dyspareunia Mixed incontinence Mixed incontinence urge and stress (male)(female) Vaginal atrophy Postmenopausal atrophic vaginitis Cystocele, midline Long-term current use of tamoxifen documented [facility]* Diagnosis Vaginal atrophy- Primary Postmenopausal atrophic vaginitis Vulvar dermatitis Other inflammatory disease of cervix, vagina and vulva documented in this encounter [facility]* Diagnosis Breast neoplasm, Tis (DCIS), left- Primary Encounter for screening mammogram for high-risk patient Nausea Nausea alone Pain of upper abdomen Abdominal pain, other specified site documented in this encounter [facility] note* Diagnosis Epigastric pain- Primary Abdominal pain, epigastric Nausea Nausea alone Need for vaccination Need for prophylactic vaccination and inoculation against unspecified single disease documented [facility] this encounter [facility]* Diagnosis Epigastric pain Abdominal pain, epigastric documented in this [facility]* Diagnosis Abnormal CT of the abdomen- Primary Nonspecific (abnormal) findings on radiological and other examination of abdominal area, including retroperitoneum Liver lesion Other specified disorders of liver Ductal carcinoma in situ (DCIS) of left breast Abnormal CT of the chest Nonspecific (abnormal) findings on radiological and other examination of other intrathoracic organs documented in this encounter [facility]* Diagnosis Controlled type 2 diabetes mellitus without complication, without long-term current use of insulin (HCC)- Primary Essential hypertension Unspecified essential hypertension Mixed hyperlipidemia Vitamin D deficiency Unspecified vitamin D deficiency Upper back pain Need for vaccination Need for prophylactic vaccination and inoculation against unspecified single disease 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) Ductal carcinoma in situ (DCIS) of left breast History of hyperparathyroidism Personal history of other endocrine, metabolic, and immunity disorders documented in this encounter [facility]* Diagnosis URI, acute- Primary Acute upper respiratory infections of unspecified site documented [facility] this encounter [facility]* Diagnosis Other diabetic neurological complication associated with type 2 diabetes mellitus (HCC)- Primary Ingrowing toenail Ingrowing nail documented [facility] this encounter [facility]* Diagnosis Sore throat- Primary Acute pharyngitis Acute cough [facility] this [facility]* Diagnosis Onset Date Resolution Status Atherosclerotic heart diseas e of [place] coronary artery without angina pectoris chronic Essential hypertension chron ic Mixed hyperlipidemia chronic Nausea chronic Palpitations chronic Presence of stent in coronary artery December, chronic Epigastric pain chronic Fatty liver chronic IBS (irritable bowel syndrome) chronic [facility] Work Phone: Evaluation note* Diagnosis Vaginal discharge- Primary Leukorrhea, not specified as infective documented [facility] this encounter [facility]* Diagnosis Bacterial vaginosis- Primary Vaginitis and vulvovaginitis, unspecified documented [facility] this [facility]* Diagnosis URI with cough and congestion- Primary documented [facility] this [facility]* Diagnosis Onset Date Resolution Status Fatty liver chronic Diarrhea acute [facility] Work Phone: Evaluation note* Diagnosis Bacterial sinusitis- Primary Unspecified sinusitis (chronic) documented [facility] this [facility]* Diagnosis RLS (restless legs syndrome) Restless legs syndrome (RLS) documented [facility] this encounter [facility]* Diagnosis 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 Encounter for screening mammogram for high-risk patient documented [facility] this encounter [facility]* Diagnosis Encounter for Medicare annual wellness exam- Primary Routine general medical examination at a health care facility Controlled type 2 diabetes mellitus without complication, without long-term current use of insulin (HCC) Diabetic eye exam ([facility]) Type II or unspecified type diabetes mellitus without mention of complication, not stated as uncontrolled Essential hypertension Unspecified essential hypertension Mixed hyperlipidemia 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) History [...] Other specified counseling documented [facility]* Diagnosis Onset Date Resolution Status Atherosclerotic heart diseas e of [place] coronary artery without angina pectoris chronic Essential hypertension chron ic Palpitations chronic Diarrhea chronic Elevated lipase chronic [facility] Work Phone: Evaluation note* Diagnosis Dysuria- Primary Urine frequency Urinary frequency Vaginal discharge Leukorrhea, not specified as infective Vulvovaginal discomfort Unspecified symptom associated with female genital organs documented [facility] this encounter [facility] Diagnosis Abnormal CT of the abdomen Nonspecific (abnormal) findings on radiological and other examination of abdominal area, including retroperitoneum Liver lesion Other specified disorders of liver Ductal carcinoma in situ (DCIS) of left breast [facility]* Diagnosis Epigastric pain Abdominal pain, epigastric [facility] Breast neoplasm, Tis (DCIS), left Encounter for screening mammogram for high-risk patient [facility] Diagnosis Ductal carcinoma in situ (DCIS) of left breast Abnormal CT of the chest Nonspecific (abnormal) findings on radiological and other examination of other intrathoracic organs [facility] Diagnosis Essential hypertension- Primary Unspecified essential hypertension Controlled type 2 diabetes mellitus without complication, without long-term current use of insulin (HCC) Mixed hyperlipidemia 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 RLS (restless legs syndrome) Restless legs syndrome (RLS) Obstructive sleep apnea on CPAP Obstructive sleep apnea (adult) (pediatric) documented [facility] this encounter [facility]* Diagnosis Vaginal yeast infection- Primary Candidiasis of vulva and vagina Essential hypertension Unspecified essential hypertension [facility] Diagnosis Onset Date Resolution Status Diarrhea chronic Elevated lipase chronic [facility]* Diagnosis Diabetic eye exam (HCC) Type II or unspecified type diabetes mellitus without mention of complication, not stated as uncontrolled documented in this encounter [facility] note* Diagnosis Essential hypertension- Primary Unspecified essential hypertension documented in this encounter [facility] note* Diagnosis Hyperglycemia- Primary Other abnormal glucose Pancreatic insufficiency Other specified disease of pancreas documented in this encounter [facility] note* Diagnosis Dysuria- Primary Urinary frequency Vaginal discharge Leukorrhea, not specified as infective Genitourinary syndrome of menopause documented in this encounter [facility] note* Diagnosis Essential hypertension Unspecified essential hypertension documented in this encounter [facility] note* Diagnosis Ductal carcinoma in situ (DCIS) of left breast Encounter for screening mammogram for high-risk patient documented [facility] this encounter [facility]* Diagnosis 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 documented [facility] this encounter [facility]* Diagnosis Genitourinary syndrome of menopause- Primary documented in this encounter [facility]* Diagnosis Pharyngitis, unspecified etiology- Primary Respiratory illness Bacterial sinusitis Unspecified sinusitis (chronic) documented in this encounter [facility]* Diagnosis Abnormal urinalysis- Primary Other nonspecific finding on examination of urine documented [facility] this encounter [facility]* Diagnosis Urinary frequency- Primary documented [facility] this encounter [facility]* Diagnosis Lower urinary tract symptoms (LUTS)- Primary Other symptoms involving urinary system Urinary incontinence, mixed Mixed incontinence urge and stress (male)(female) Microscopic hematuria History of UTI Personal history of urinary (tract) infection Abnormal findings on diagnostic imaging of urinary organs Nonspecific (abnormal) findings on radiological and other examination of genitourinary organs documented in this encounter [facility] note* Diagnosis Burn, foot, second degree, left, initial encounter- Primary documented in this encounter [facility]* Diagnosis Urinary incontinence, mixed- Primary Mixed incontinence urge and stress (male)(female) Genitourinary syndrome of menopause Microscopic hematuria Adenoma of right adrenal gland documented [facility] this encounter [facility]* Diagnosis Controlled type 2 diabetes mellitus without complication, without long-term current use of insulin (HCC)- Primary Essential hypertension Unspecified essential hypertension Mixed hyperlipidemia Meniere disease, 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) Obstructive [...] cystic kidney disease [facility] Diagnosis Controlled type 2 diabetes mellitus without complication, without long-term current use of insulin (HCC)- Primary Essential hypertension Unspecified essential hypertension Mixed hyperlipidemia Meniere disease, 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) Obstructive sleep apnea on CPAP Obstructive sleep apnea (adult) (pediatric) Amaurosis fugax Transient arterial occlusion of retina Seasonal allergic rhinitis, unspecified chronicity, unspecified trigger Vitamin D deficiency Unspecified vitamin D deficiency Adenoma of right adrenal gland- Primary Disorder of adrenal gland (HCC) Unspecified disorder of adrenal glands [facility] Diagnosis Essential hypertension- Primary [...] type 2 diabetes mellitus (HCC) 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) [facility]* Diagnosis Controlled type 2 diabetes mellitus without complication, without long-term current use of insulin (HCC)- Primary Essential hypertension Unspecified essential hypertension Mixed hyperlipidemia Meniere disease, 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) Obstructive [...] right adrenal gland documented [facility]* Diagnosis Controlled type 2 diabetes mellitus without complication, without long-term current use of insulin (HCC)- Primary Essential hypertension Unspecified essential hypertension Mixed hyperlipidemia Meniere disease, 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) Obstructive sleep apnea on CPAP Obstructive sleep apnea (adult) (pediatric) Amaurosis fugax Transient arterial occlusion of retina Seasonal allergic rhinitis, unspecified chronicity, unspecified trigger Vitamin D deficiency Unspecified vitamin D deficiency 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) Unspecified disorder of adrenal glands documented [facility]* Diagnosis Controlled type 2 diabetes mellitus without complication, without long-term current use of insulin (HCC)- Primary Essential hypertension Unspecified essential hypertension Mixed hyperlipidemia Meniere disease, 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) Obstructive sleep apnea on CPAP Obstructive sleep apnea (adult) (pediatric) Amaurosis fugax Transient arterial occlusion of retina Seasonal allergic rhinitis, unspecified chronicity, unspecified trigger Vitamin D deficiency Unspecified vitamin D deficiency 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 Encounter for screening mammogram for high-risk patient documented [facility] Diagnosis Controlled type 2 diabetes mellitus without complication, without long-term current use of insulin (HCC)- Primary Essential hypertension Unspecified essential hypertension Mixed hyperlipidemia Meniere disease, 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) Obstructive sleep apnea on CPAP Obstructive sleep apnea (adult) (pediatric) Amaurosis fugax Transient arterial occlusion of retina Seasonal allergic rhinitis, unspecified chronicity, unspecified trigger Vitamin D deficiency Unspecified vitamin D deficiency Adenoma of right adrenal gland- Primary documented [facility]* Diagnosis Controlled type 2 diabetes mellitus without complication, without long-term current use of insulin (HCC)- Primary Essential hypertension Unspecified essential hypertension Mixed hyperlipidemia Meniere disease, 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) Obstructive [...] deficiency Mixed hyperlipidemia [facility]* Diagnosis Controlled type 2 diabetes mellitus without complication, without long-term current use of insulin (HCC)- Primary Essential hypertension Unspecified essential hypertension Mixed hyperlipidemia Meniere disease, 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) Obstructive sleep apnea on CPAP Obstructive sleep apnea (adult) (pediatric) Amaurosis fugax Transient arterial occlusion of retina Seasonal allergic rhinitis, unspecified chronicity, unspecified trigger Vitamin D deficiency Unspecified vitamin D deficiency Type 2 diabetes mellitus with hyperlipidemia (HCC) (HCC)- Primary Controlled type 2 diabetes mellitus without complication, without long-term current use of insulin ([facility]) Diabetic eye exam ([facility]) Type II or unspecified type diabetes mellitus without mention of complication, not stated as uncontrolled Essential hypertension Unspecified essential hypertension Mixed hyperlipidemia 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 Vitamin D deficiency Unspecified vitamin D deficiency Right lateral epicondylitis Lateral epicondylitis of elbow Medication management Encounter for long-term (current) use of other medications Gastroesophageal reflux disease without esophagitis Esophageal reflux [facility] Diagnosis Controlled type 2 diabetes mellitus without complication, without long-term current use of insulin (HCC)- Primary Essential hypertension Unspecified essential hypertension Mixed hyperlipidemia Meniere disease, 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) Obstructive sleep apnea on CPAP Obstructive sleep apnea (adult) (pediatric) Amaurosis fugax Transient arterial occlusion of retina Seasonal allergic rhinitis, unspecified chronicity, unspecified trigger Vitamin D deficiency Unspecified vitamin D deficiency Adenoma of right adrenal gland- Primary documented [facility]* Diagnosis Controlled type 2 diabetes mellitus without complication, without long-term current use of insulin (HCC)- Primary Essential hypertension Unspecified essential hypertension Mixed hyperlipidemia Meniere disease, 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) Obstructive sleep apnea on CPAP Obstructive sleep apnea (adult) (pediatric) Amaurosis fugax Transient arterial occlusion of retina Seasonal allergic rhinitis, unspecified chronicity, unspecified trigger Vitamin D deficiency Unspecified vitamin D deficiency Acute cough- Primary Essential hypertension Unspecified essential hypertension [facility] Diagnosis Controlled type 2 diabetes mellitus without complication, without long-term current use of insulin (HCC)- Primary Essential hypertension Unspecified essential hypertension Mixed hyperlipidemia Meniere disease, 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) Obstructive sleep apnea on CPAP Obstructive sleep apnea (adult) (pediatric) Amaurosis fugax Transient arterial occlusion of retina Seasonal allergic rhinitis, unspecified chronicity, unspecified trigger Vitamin D deficiency Unspecified vitamin D deficiency COVID-19- Primary [facility] Diagnosis Controlled type 2 diabetes mellitus without complication, without long-term current use of insulin (HCC)- Primary Essential hypertension Unspecified essential hypertension Mixed hyperlipidemia Meniere disease, 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 Obstructive sleep apnea on CPAP Obstructive sleep apnea (adult) (pediatric) Amaurosis fugax Transient arterial occlusion of retina Seasonal allergic rhinitis, unspecified chronicity, unspecified trigger Vitamin D deficiency Unspecified vitamin D deficiency Adenoma of right adrenal gland- Primary Disorder of adrenal gland (HCC) Unspecified disorder of adrenal glands [facility] Diagnosis Controlled type 2 diabetes mellitus without complication, without long-term current use of insulin (HCC)- Primary Essential hypertension Unspecified essential hypertension Mixed hyperlipidemia Meniere disease, 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 Obstructive sleep [...] cystic kidney disease [facility] Diagnosis Controlled type 2 diabetes mellitus without complication, without long-term current use of insulin (HCC)- Primary Essential hypertension Unspecified essential hypertension Mixed hyperlipidemia Meniere disease, 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 Obstructive sleep apnea on CPAP Obstructive sleep apnea (adult) (pediatric) Amaurosis fugax Transient arterial occlusion of retina Seasonal allergic rhinitis, unspecified chronicity, unspecified trigger Vitamin D deficiency Unspecified vitamin D deficiency Ductal carcinoma in situ (DCIS) of left breast Encounter for screening mammogram for high-risk patient documented in this encounter [facility] note* Diagnosis Controlled type 2 diabetes mellitus without complication, without long-term current use of insulin (HCC)- Primary Essential hypertension Unspecified essential hypertension Mixed hyperlipidemia Meniere disease, 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 Obstructive sleep apnea on CPAP Obstructive sleep apnea (adult) (pediatric) Amaurosis fugax Transient arterial occlusion of retina Seasonal allergic rhinitis, unspecified chronicity, unspecified trigger Vitamin D deficiency Unspecified vitamin D deficiency Cold intolerance- Primary Other general symptoms Disorder of adrenal gland (HCC) Unspecified disorder of adrenal glands documented in this encounter [facility] note* Diagnosis Controlled type 2 diabetes mellitus without complication, without long-term current use of insulin (HCC)- Primary Essential hypertension Unspecified essential hypertension Mixed hyperlipidemia Meniere disease, 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 Obstructive sleep apnea on CPAP Obstructive sleep apnea (adult) (pediatric) Amaurosis fugax Transient arterial occlusion of retina Seasonal allergic rhinitis, unspecified chronicity, unspecified trigger Vitamin D deficiency Unspecified vitamin D deficiency 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 Encounter for screening mammogram for high-risk patient documented in this encounter [facility] note* Diagnosis Controlled type 2 diabetes mellitus without complication, without long-term current use of insulin ([facility])- Primary Essential hypertension Unspecified essential hypertension Mixed hyperlipidemia Meniere disease, 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 Obstructive sleep [...] Asymptomatic postmenopausal status documented in this encounter [facility] note* Diagnosis Controlled type 2 diabetes mellitus without complication, without long-term current use of insulin (HCC)- Primary Essential hypertension Unspecified essential hypertension Mixed hyperlipidemia Meniere disease, 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 Obstructive sleep apnea on CPAP Obstructive sleep apnea (adult) (pediatric) Amaurosis fugax Transient arterial occlusion of retina Seasonal allergic rhinitis, unspecified chronicity, unspecified trigger Vitamin D deficiency Unspecified vitamin D deficiency Encounter for Medicare annual wellness exam- Primary Routine general medical examination at a [facility] Advance directive discussed with patient Other specified counseling Controlled type 2 diabetes mellitus without complication, without long-term current use of insulin (HCC) Type 2 diabetes mellitus with hyperlipidemia (HCC) Essential hypertension Unspecified essential hypertension Mixed hyperlipidemia Statin intolerance Other drug allergy 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) RLS (restless legs syndrome) Restless legs syndrome (RLS) Atherosclerosis 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 pectoris Pancreatic insufficiency (HCC) Other specified disease of pancreas Vitamin D deficiency Unspecified vitamin D deficiency Hypomagnesemia Disorders of magnesium metabolism History of hyperparathyroidism Personal history of other endocrine, metabolic, and immunity disorders Living will on file at physician's office Encounter for screening examination for other mental health and behavioral disorders Screening for depression documented in this encounter [facility] note* Diagnosis Controlled type 2 diabetes mellitus without complication, without long-term current use of insulin (HCC)- Primary Essential hypertension Unspecified essential hypertension Mixed hyperlipidemia Meniere disease, 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 Obstructive sleep apnea on CPAP Obstructive sleep apnea (adult) (pediatric) Amaurosis fugax Transient arterial occlusion of retina Seasonal allergic rhinitis, unspecified chronicity, unspecified trigger Vitamin D deficiency Unspecified vitamin D deficiency Urinary frequency- Primary Urinary tract infection with hematuria, site unspecified [facility] Additional Instructions This evening you [...] [facility] the [facility] Reason for referral (narrative)* Diagnostic Procedure Only (Routine) - Closed Specialty Diagnoses / Procedures Referred By Jared t Referred To Contact [facility] Diagnoses Breast neoplasm, Tis (DCIS), left Encounter for screening mammogram for malignant neoplasm of breast Procedures GUILLERMINA SCREENING SCREENING MAMMOGRAPHY BI 2-VIEW BREAST INC Alberto Mehta MD [address] [place] [address] [facility] [address] [place] [address] Referral ID Status Reason Start Date Expiration Date V isits Requested Visits Authorized [id number] Closed Auto-Generate d Referral 02/23/2022 07/30/2022 1 1 [facility] for referral (narrative)* Diagnostic Procedure Only (Routine) - Authorized Specialty Diagnoses / Procedures Referred By Jared hernández Referred To Contact [facility] Diagnoses Ductal carcinoma in situ (DCIS) of left breast Abnormal CT of the chest Procedures US BREAST LTD LT US BREAST UNI REAL TIME WITH IMAGE LIMITED Chad Mariee APRN.TOOL MACHINE SETUP OPERATOR [address] [place] [address] [facility] [address] [place] [address] Referral ID Status Reason Start Date Expiration Date Visits Requested Visits Authorized [id number] Authorized Auto-Generat ed Referral 09/16/2022 10/16/2023 1 1 * Diagnostic Procedure Only (Routine) - Authorized Specialty Diagnoses / Procedures Referred By Jared hernández Referred To Contact [facility] Diagnoses Ductal carcinoma in situ (DCIS) of left breast Abnormal CT of the chest Procedures GUILLERMINA DIAGNOSTIC LT DIAGNOSTIC MAMMOGRAPHY COMPUTER-AIDED DETCJ UNI Chad Mariee APRN.TOOL MACHINE SETUP OPERATOR [address] [place] [address] [facility] [address] [place] [address] Referral ID Status Reason Start Date Expiration Date Visits Requested Visits Authorized [id number] Authorized Auto-Generat ed Referral 09/16/2022 10/16/2023 1 1 * MRI/CT (Routine) - Pending Review Specialty Diagnoses / Procedures Referred By Jared hernández Referred To Contact CT IMAGING Diagnoses Abnormal CT of the abdomen Liver 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 Procedures CT ABD/PEL W IVCON CT ABD & PELVIS W/CONTRAST Chad Mariee APRN.TOOL MACHINE SETUP OPERATOR [address] [place] [address] Ct Imaging Referral ID Status Reason Start Date Expiration Date Visits Requested Visits Authorized [id number] Pending Review Auto-Generat ed Referral 09/16/2022 10/16/2023 1 1 [facility] for referral (narrative)* Diagnostic Procedure Only (Routine) - Pending Review Specialty Diagnoses / Procedures Referred By Jared hernández Referred To Contact BR IMAG[facility] Diagnoses Ductal carcinoma in situ (DCIS) of left breast Encounter for screening mammogram for high-risk patient Procedures GUILLERMINA SCREENING W ANGELA SCREENING DIGITAL BREAST TOMOSYNTHESIS BI SCREENING MAMMOGRAPHY BI 2-VIEW BREAST INC CAD Chad Mariee APRN.TOOL MACHINE SETUP OPERATOR [address] [place] [address] [facility] [address] [place] [address] Referral ID Status Reason Start Date Expiration Date Visits Requested Visits Authorized [id number] Pending Review Auto-Generat ed Referral 02/26/2023 03/27/2024 1 1 [facility] for referral (narrative)* Diagnostic Procedure Only (Routine) - Closed Specialty Diagnoses / Procedures Referred By Jared hernández Referred To Contact CT IMAGING Diagnoses Abnormal CT of the abdomen Liver 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 Procedures CT ABD/PEL W IVCON CT ABD & PELVIS W/CONTRAST Chad Mariee APRN.TOOL MACHINE SETUP OPERATOR [address] [place] [address] [place] [address] Referral ID Status Reason Start Date Expiration Date V isits Requested Visits Authorized [id number] Closed Auto-Generate d Referral 11/25/2022 12/25/2022 2 2 [facility] for referral (narrative)* Diagnostic Procedure Only (Routine) - Closed Specialty Diagnoses / Procedures Referred By Contac t Referred To Contact US IMAGING Diagnoses Epigastric pain Procedures US ABD RT UPPER QUADRANT US ABDOMINAL REAL TIME W/IMAGE LIMITED Clifton Hung MD [address] [place] [address] [place] [address] Referral ID Status Reason Start Date Expiration Date V isits Requested Visits Authorized [id number] Closed Auto-Generate d Referral 09/03/2022 10/03/2023 1 1 [facility] for referral (narrative)* Diagnostic Procedure Only (Routine) - Closed Specialty Diagnoses / Procedures Referred By Contac t Referred To Contact BR IMAG[facility] Diagnoses Breast neoplasm, Tis (DCIS), left Encounter for screening mammogram for high-risk patient Procedures GUILLERMINA SCREENING SCREENING MAMMOGRAPHY BI 2-VIEW BREAST INC CAD Chad Mariee APRN.CNP [address] [place] [address] [facility] [address] [facility] [address] Referral ID Status Reason Start Date Expiration Date V isits Requested Visits Authorized [id number] Closed Auto-Generate d Referral 08/28/2022 09/27/2023 1 1 [facility] for referral (narrative)* Diagnostic Procedure Only (Routine) - Closed Specialty Diagnoses / Procedures Referred By Contac t Referred To Contact [facility] IM[facility] Diagnoses Ductal carcinoma in situ (DCIS) of left breast Encounter for screening mammogram for high-risk patient Procedures GUILLERMINA SCREENING W ANGELA SCREENING DIGITAL BREAST TOMOSYNTHESIS BI SCREENING MAMMOGRAPHY BI 2-VIEW BREAST INC CAD [facility], REED OR WIND INSTRUMENT REPAIRER.TOOL MACHINE SETUP OPERATOR [address] [place] [address] Br Imaging [address] [place] [address] Referral ID Status Reason Start Date Expiration Date V isits Requested Visits Authorized [id number] Closed Auto-Generate d Referral 02/26/2023 03/27/2024 1 1 [facility] for referral (narrative)* Diagnostic Procedure Only (Routine) - Authorized Specialty Diagnoses / Procedures Referred By Jared hernández Referred To Contact [facility] Diagnoses Ductal carcinoma in situ (DCIS) of left breast Encounter for screening mammogram for high-risk patient Procedures GUILLERMINA SCREENING W ANGELA SCREENING DIGITAL BREAST TOMOSYNTHESIS BI SCREENING MAMMOGRAPHY BI 2-VIEW BREAST INC [facility], REED OR WIND INSTRUMENT REPAIRER.TOOL MACHINE SETUP OPERATOR [address] [place] [address] Br Imaging [address] [place] [address] Referral ID Status Reason Start Date Expiration Date Visits Requested Visits Authorized [id number] Authorized Auto-Generat ed Referral 03/14/2025 10/14/2025 1 1 [facility] for visit Narrative* Diagnostic Procedure Only (Routine) - Closed Specialty Diagnoses / Procedures Referred By Jared hernández Referred To Contact BR IMAG[facility] Diagnoses Breast neoplasm, Tis (DCIS), left Encounter for screening mammogram for malignant neoplasm of breast Procedures GUILLERMINA SCREENING SCREENING MAMMOGRAPHY BI 2-VIEW BREAST INC Alberto Mehta MD [address] [place] [address] Br Imaging [address] [place] [address] Referral ID Status Reason Start Date Expiration Date V isits Requested Visits Authorized [id number] Closed Auto-Generate d Referral 02/23/2022 07/30/2022 1 1 [facility] for visit Narrative* Diagnostic Procedure Only (Routine) - Closed Specialty Diagnoses / Procedures Referred By Jared t Referred To Contact BR IMAG[facility] Diagnoses Breast neoplasm, Tis (DCIS), left Encounter for screening mammogram for high-risk patient Procedures GUILLERMINA SCREENING SCREENING MAMMOGRAPHY BI 2-VIEW BREAST INC CAD Chad Mariee, TERRA.TOOL MACHINE SETUP OPERATOR [address] [place] [address] Br Imaging [address] [place] [address] Referral ID Status Reason Start Date Expiration Date V isits Requested Visits Authorized [id number] Closed Auto-Generate d Referral 08/28/2022 09/27/2023 1 1 [facility] for visit Narrative* Diagnostic Procedure Only (Routine) - Closed Specialty Diagnoses / Procedures Referred By Jared hernández Referred To Contact CT IMAGING Diagnoses Abnormal CT of the abdomen Liver 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 Procedures CT ABD/PEL W IVCON CT ABD & PELVIS W/CONTRAST Chad Mariee APRN.TOOL MACHINE SETUP OPERATOR [address] [place] [address] Ct Imaging [facility]95 Referral ID Status Reason Start Date Expiration Date V isits Requested Visits Authorized [id number] Closed Auto-Generate d Referral 11/25/2022 12/25/2022 2 2 [facility] for visit Narrative* Diagnostic Procedure Only (Routine) - Closed Specialty Diagnoses / Procedures Referred By Jared t Referred To Contact BR IMAG[facility] Diagnoses Ductal carcinoma in situ (DCIS) of left breast Abnormal CT of the chest Procedures GUILLERMINA DIAGNOSTIC LT DIAGNOSTIC MAMMOGRAPHY COMPUTER-AIDED DETCJ UNI Chad Mariee, TERRA.TOOL MACHINE SETUP OPERATOR [address] [place] [address] Br Imaging [address] [place] [address] Referral ID Status Reason Start Date Expiration Date V isits Requested Visits Authorized [id number] Closed Auto-Generate d Referral 09/16/2022 10/16/2023 1 1 [facility] for visit Narrative* Diagnostic Procedure Only (Routine) - Closed Specialty Diagnoses / Procedures [facility] Diagnoses Ductal carcinoma in situ (DCIS) of left breast Encounter for screening mammogram for high-risk patient Procedures GUILLERMINA SCREENING W ANGELA SCREENING DIGITAL BREAST TOMOSYNTHESIS BI SCREENING MAMMOGRAPHY BI 2-VIEW BREAST INC [facility], REED OR WIND INSTRUMENT REPAIRER.TOOL MACHINE SETUP OPERATOR [address] [place] [address] Br Imaging [address] [place] [address] Referral ID Status Reason Start Date Expiration Date V isits Requested Visits Authorized [id number] Closed Auto-Generate d Referral 02/26/2023 03/27/2024 1 1 [facility] Diagnostic Procedure Only (Routine) - Closed Specialty Diagnoses / Procedures Referred By Contac t Referred To Contact BR IM[facility] Diagnoses Ductal carcinoma in situ (DCIS) of left breast Encounter for screening mammogram for high-risk patient Procedures GUILLERMINA SCREENING W ANGELA SCREENING DIGITAL BREAST TOMOSYNTHESIS BI SCREENING MAMMOGRAPHY BI 2-VIEW BREAST INC [facility], REED OR WIND INSTRUMENT REPAIRER.TOOL MACHINE SETUP OPERATOR [address] [place] [address] Phone: tel: fax: [facility] [address] [place] [address] Referral ID Status Reason Start Date Expiration Date V isits Requested Visits Authorized [id number] Closed Auto-Generate d Referral 03/14/2025 10/14/2025 1 1 [facility] Advance Directives No Advanced Directives Records FoundDocuments on File Type Date Recorded Patient Airline Reservationist Expl anation Advance Directive(s) 06/24/2021 1:42 PM Advance Directive(s) 08/09/2018 8:15 AM Documents on File Type Date Recorded Patient Airline Reservationist Expl anation Advance Directive(s) 06/24/2021 1:42 PM Advance Directive(s) 08/09/2018 8:15 AM Advance Directive Response Recorded Date/ Time Advance Directives Yes October 12, 2018 8:15am Living Will No May 05, 2021 10:00am Power of Plaque Maker No May 05 10:00am Documents on File Type Date Recorded Patient Airline Reservationist Expl anation Advance Directive(s) 04/07/2022 12:26 PM Documents on File Type Date Recorded Patient Airline Reservationist Expl anation Advance Directive(s) 04/07/2022 12:26 PM Advance Directive Response Recorded Date/ Time Advance Directives Yes October 12, 2018 7:15am Living Will Yes November 30 12:39pm Power of Plaque Maker Yes November 30, 2022 12:39pm Advance Directive Response Recorded Date/ Time Name of Medical Power of Plaque Maker SPOUSE November 30, 2022 12:39pm Advance Directives Yes October 12, 2018 7:15am Living Will Yes November 30 12:39pm Power of Plaque Maker Yes November 30, 2022 12:39pm Advance Directive Response Recorded Date/ Time Name of Medical Power of Plaque Maker SPOUSE November 30, 2022 1:39pm Advance Directives Yes October 12, 2018 8:15am Living Will Yes November 30 1:39pm Power of Plaque Maker Yes November 30, 2022 1:39pm Advance Directive Response Recorded Date/ Time Advance Directives Yes October 12, 2018 8:15am Living Will Yes November 30 1:39pm Power of Plaque Maker Yes November 30, 2022 1:39pm Advance Directive Response Recorded Date/ Time Name of Medical Power of Plaque Maker recalled September 11, 2023 2:34pm Advance Directives Yes October 12, 2018 7:15am Living Will Yes September 11 2:34pm Power of Plaque Maker Yes September 11, 2023 2:34pm Advance Directive Response Recorded Date/ Time Name of Medical Power of Plaque Maker recalled September 11, 2023 2:34pm Name of Medical Power of Plaque Maker Carmella December 22, 2023 1:32pm Advance Directives Yes October 12, 2018 7:15am Living Will Yes December 22 024 1:32pm Power of Plaque Maker Yes December 22, 2023 1:32pm Advance Directive Response Recorded Date/ Time Name of Medical Power of Plaque Maker recalled September 11, 2023 2:34pm Name of Medical Power of Plaque Maker Carmella December 22, 2023 1:32pm Name of Medical Power of Plaque Maker carmella s/o December 28, 2023 12:43am Advance Directives Yes October 12, 2018 7:15am Living Will Yes December 28, 024 12:43am Power of Plaque Maker Yes December 28, 2023 12:43am Chief Complaint and Reason for Visit Chief Complaint 6 m fu E-ORDER Reason for Visit Atherosclerotic hear t disease of [place] coronary artery without angina pectoris Essential hypertension Mixed hyperlipidemia Palpitations Presence of stent in coronary artery Chief Complaint 6 m fu E-ORDER HOLTER PALPS SOB.PVC,CAD HX SOB.PVC,CAD HX Reason for Visit Atherosclerotic hear t disease of [place] coronary artery without angina pectoris Essential hypertension Mixed hyperlipidemia Palpitations Presence of stent in coronary artery Chief Complaint 3 M FU Consult E ORDERS E ORDERS Reason for Visit Atherosclerotic hear t disease of [place] coronary artery without angina pectoris Essential hypertension [...] for Visit Atherosclerotic hear t disease of [place] coronary artery without angina pectoris Essential hypertension [...] DIAGNOSTIC COMPUTED TOMOGRAPHY THORAX W/CONTRAST Chad Mariee, REED OR WIND INSTRUMENT REPAIRER.TOOL MACHINE SETUP OPERATOR [address] [place] [address] Ct Imaging Referral ID Status Reason Start Date Expiration Date Visits Requested Visits Authorized [id number] Pending Review Auto-Generat ed Referral 2 09/27/2023 1 1 Specialty Diagnoses / Procedures Referred By Contac t Referred To Contact CT IMAGING Diagnoses Breast neoplasm, Tis (DCIS), left Nausea Pain of upper abdomen Procedures CT ABD/PEL W IVCON CT ABD & PELVIS W/CONTRAST Chad Mariee, TERRA.TOOL MACHINE SETUP OPERATOR [address] [place] [address] Ct Imaging Referral ID Status Reason Start Date Expiration Date Visits Requested Visits Authorized [id number] Pending Review Auto-Generat ed Referral 2 09/27/2023 1 1 Specialty Diagnoses / Procedures Referred By Contac t Referred To Contact BR IMAG[facility] Diagnoses Breast neoplasm, Tis (DCIS), left Encounter for screening mammogram for high-risk patient Procedures GUILLERMINA SCREENING SCREENING MAMMOGRAPHY BI 2-VIEW BREAST INC CAD Chad Mariee, TERRA.TOOL MACHINE SETUP OPERATOR [address] [place] [address] [facility] [address] [place] [address] Referral ID Status Reason Start Date Expiration Date Visits Requested Visits Authorized [id number] Authorized Auto-Generat ed Referral 2 09/27/2023 1 1 Specialty Diagnoses / Procedures Referred By Contac t Referred To Contact Gastroenterology Diagnoses Nausea Epigastric pain Procedures CONSULT TO GASTROENTEROLOGY OFFICE/OUTPATIENT [facility] MDM 60-74 MINUTES Clifton Hung MD [address] [place] [address] Referral ID Status Reason Start Date Expiration Date Visits Requested Visits Authorized [id number] Authorized PCP Requested Referral 2 09/03/2023 1 1 Specialty Diagnoses / Procedures Referred By Contac t Referred To Contact US IMAGING Diagnoses Epigastric pain Procedures US ABD RT UPPER QUADRANT US ABDOMINAL REAL TIME W/IMAGE LIMITED Clifton Hung MD [address] [place] [address] Us Imaging Referral ID Status Reason Start Date Expiration Date Visits Requested Visits Authorized [id number] Authorized Auto-Generat ed Referral 10/03/2023 1 1 Specialty Diagnoses / Procedures Referred By Contac t Referred To Contact Urology Diagnoses Urinary frequency Procedures CONSULT TO UROLOGY OFFICE/OUTPATIENT [facility] 60 MINUTES Francine Madrid APRN.TOOL MACHINE SETUP OPERATOR [address] [place] [address] Referral ID Status Reason Start Date Expiration Date Visits Requested Visits Authorized [id number] Authorized PCP Requested Referral 04/20/2024 04/20/2025 1 1 Specialty Diagnoses / Procedures Referred By Contac t Referred To Contact Endocrinology Diagnoses Adenoma of right adrenal gland Procedures CONSULT TO ENDOCRINOLOGY OFFICE/OUTPATIENT [facility] 60 MINUTES Ori Landin, DO [address] [place] [address] Referral ID Status Reason Start Date Expiration Date Visits Requested Visits Authorized [id number] Authorized PCP Requested Referral 05/23/2024 05/23/2025 1 1 Specialty Diagnoses / Procedures Referred By Contac t Referred To Contact CT IMAGING Diagnoses 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) Procedures CT ADRENAL WO/W IVCON CT ABDOMEN W & W/O CONTRAST Alexa Matute MD [address] [place] [address] [place] [address] Referral ID Status Reason Start Date Expiration Date Visits Requested Visits Authorized [id number] Pending Review Auto-Generat ed Referral 07/11/2024 08/10/2025 1 1 Referral ID Status Reason Start Date Expiration Date V isits Requested Visits Authorized [id number] Closed Auto-Generate d Referral 08/15/2024 10/14/2024 1 [...] or prosecute any alcohol or drug abuse patient.[facility] the event this information is protected by the Federal Confidentiality of Alcohol and Drug Abuse Patient Records regulations: The Federal rules restrict any use of the information to criminally investigate or prosecute any alcohol or drug abuse patient.[facility] CenterIn the event this information is protected by the Federal Confidentiality of Alcohol and Drug Abuse Patient Records regulations: The Federal rules restrict any use of the information to criminally investigate or prosecute any alcohol or drug abuse patient.[facility] CenterIn the event this information is protected by the Federal Confidentiality of Alcohol and Drug Abuse Patient Records regulations: The Federal rules restrict any use of the information to criminally investigate or prosecute any alcohol or drug abuse patient.[facility] CenterIn the event this information is protected by the Federal Confidentiality of Alcohol and Drug Abuse Patient Records regulations: The Federal rules restrict any use of the information to criminally investigate or prosecute any alcohol or drug abuse patient.[facility] CenterIn the event this information is protected by the Federal Confidentiality of Alcohol and Drug Abuse Patient Records regulations: The Federal rules restrict any use of the information to criminally investigate or prosecute any alcohol or drug abuse patient.[facility] CenterIn the event this information is protected by the Federal Confidentiality of Alcohol and Drug Abuse Patient Records regulations: The Federal rules restrict any use of the information to criminally investigate or prosecute any alcohol or drug abuse patient.[facility] CenterIn the event this information is protected by the Federal Confidentiality of Alcohol and Drug Abuse Patient Records regulations: The Federal rules restrict any use of the information to criminally investigate or prosecute any alcohol or drug abuse patient.[facility] CenterIn the event this information is protected by the Federal Confidentiality of Alcohol and Drug Abuse Patient Records regulations: The Federal rules restrict any use of the information to criminally investigate or prosecute any alcohol or drug abuse patient.[facility] CenterIn the event this information is protected by the Federal Confidentiality of Alcohol and Drug Abuse Patient Records regulations: The Federal rules restrict any use of the information to criminally investigate or prosecute any alcohol or drug abuse patient.[facility] CenterIn the event this information is protected by the Federal Confidentiality of Alcohol and Drug Abuse Patient Records regulations: The Federal rules restrict any use of the information to criminally investigate or prosecute any alcohol or drug abuse patient.[facility] CenterIn the event this information is protected by the Federal Confidentiality of Alcohol and Drug Abuse Patient Records regulations: The Federal rules restrict any use of the information to criminally investigate or prosecute any alcohol or drug abuse patient.[facility] CenterIn the event this information is protected by the Federal Confidentiality of Alcohol and Drug Abuse Patient Records regulations: The Federal rules restrict any use of the information to criminally investigate or prosecute any alcohol or drug abuse patient.[facility] CenterIn the event this information is protected by the Federal Confidentiality of Alcohol and Drug Abuse Patient Records regulations: The Federal rules restrict any use of the information to criminally investigate or prosecute any alcohol or drug abuse patient.[facility] CenterIn the event this information is protected by the Federal Confidentiality of Alcohol and Drug Abuse Patient Records regulations: The Federal rules restrict any use of the information to criminally investigate or prosecute any alcohol or drug abuse patient.[facility] CenterIn the event this information is protected by the Federal Confidentiality of Alcohol and Drug Abuse Patient Records regulations: The Federal rules restrict any use of the information to criminally investigate or prosecute any alcohol or drug abuse patient.[facility] CenterIn the event this information is protected by the Federal Confidentiality of Alcohol and Drug Abuse Patient Records regulations: The Federal rules restrict any use of the information to criminally investigate or prosecute any alcohol or drug abuse patient.[facility] CenterIn the event this information is protected by the Federal Confidentiality of Alcohol and Drug Abuse Patient Records regulations: The Federal rules restrict any use of the information to criminally investigate or prosecute any alcohol or drug abuse patient.[facility] CenterIn the event this information is protected by the Federal Confidentiality of Alcohol and Drug Abuse Patient Records regulations: The Federal rules restrict any use of the information to criminally investigate or prosecute any alcohol or drug abuse patient.[facility] CenterIn the event this information is protected by the Federal Confidentiality of Alcohol and Drug Abuse Patient Records regulations: The Federal rules restrict any use of the information to criminally investigate or prosecute any alcohol or drug abuse patient.[facility] CenterIn the event this information is protected by the Federal Confidentiality of Alcohol and Drug Abuse Patient Records regulations: The Federal rules restrict any use of the information to criminally investigate or prosecute any alcohol or drug abuse patient.[facility] CenterIn the event this information is protected by the Federal Confidentiality of Alcohol and Drug Abuse Patient Records regulations: The Federal rules restrict any use of the information to criminally investigate or prosecute any alcohol or drug abuse patient.[facility] CenterIn the event this information is protected by the Federal Confidentiality of Alcohol and Drug Abuse Patient Records regulations: The Federal rules restrict any use of the information to criminally investigate or prosecute any alcohol or drug abuse patient.[facility] the event this information is protected by the Federal Confidentiality of Alcohol and Drug Abuse Patient Records regulations: The Federal rules restrict any use of the information to criminally investigate or prosecute any alcohol or drug abuse patient.[facility] CenterIn the event this information is protected by the Federal Confidentiality of Alcohol and Drug Abuse Patient Records regulations: The Federal rules restrict any use of the information to criminally investigate or prosecute any alcohol or drug abuse patient.[facility] CenterIn the event this information is [...] or prosecute any alcohol or drug abuse patient.[facility] CenterIn the event this information is protected by the Federal Confidentiality of Alcohol and Drug Abuse Patient Records regulations: The Federal rules restrict any use of the information to criminally investigate or prosecute any alcohol or drug abuse patient.[facility] CenterIn the event this information is protected by the Federal Confidentiality of Alcohol and Drug Abuse Patient Records regulations: The Federal rules restrict any use of the information to criminally investigate or prosecute any alcohol or drug abuse patient.[facility] CenterIn the event this information is protected by the Federal Confidentiality of Alcohol and Drug Abuse Patient Records regulations: The Federal rules restrict any use of the information to criminally investigate or prosecute any alcohol or drug abuse patient.[facility] CenterIn the event this information is protected by the Federal Confidentiality of Alcohol and Drug Abuse Patient Records regulations: The Federal rules restrict any use of the information to criminally investigate or prosecute any alcohol or drug abuse patient.[facility] CenterIn the event this information is protected by the Federal Confidentiality of Alcohol and Drug Abuse Patient Records regulations: The Federal rules restrict any use of the information to criminally investigate or prosecute any alcohol or drug abuse patient.[facility] CenterIn the event this information is protected by the Federal Confidentiality of Alcohol and Drug Abuse Patient Records regulations: The Federal rules restrict any use of the information to criminally investigate or prosecute any alcohol or drug abuse patient.[facility] CenterIn the event this information is protected by the Federal Confidentiality of Alcohol and Drug Abuse Patient Records regulations: The Federal rules restrict any use of the information to criminally investigate or prosecute any alcohol or drug abuse patient.[facility] CenterIn the event this information is protected by the Federal Confidentiality of Alcohol and Drug Abuse Patient Records regulations: The Federal rules restrict any use of the information to criminally investigate or prosecute any alcohol or drug abuse patient.[facility] CenterIn the event this information is protected by the Federal Confidentiality of Alcohol and Drug Abuse Patient Records regulations: The Federal rules restrict any use of the information to criminally investigate or prosecute any alcohol or drug abuse patient.[facility] CenterIn the event this information is protected by the Federal Confidentiality of Alcohol and Drug Abuse Patient Records regulations: The Federal rules restrict any use of the information to criminally investigate or prosecute any alcohol or drug abuse patient.[facility] CenterIn the event this information is protected by the Federal Confidentiality of Alcohol and Drug Abuse Patient Records regulations: The Federal rules restrict any use of the information to criminally investigate or prosecute any alcohol or drug abuse patient.[facility] CenterIn the event this information is protected by the Federal Confidentiality of Alcohol and Drug Abuse Patient Records regulations: The Federal rules restrict any use of the information to criminally investigate or prosecute any alcohol or drug abuse patient.[facility] CenterIn the event this information is protected by the Federal Confidentiality of Alcohol and Drug Abuse Patient Records regulations: The Federal rules restrict any use of the information to criminally investigate or prosecute any alcohol or drug abuse patient.[facility] CenterIn the event this information is protected by the Federal Confidentiality of Alcohol and Drug Abuse Patient Records regulations: The Federal rules restrict any use of the information to criminally investigate or prosecute any alcohol or drug abuse patient.[facility] CenterIn the event this information is protected by the Federal Confidentiality of Alcohol and Drug Abuse Patient Records regulations: The Federal rules restrict any use of the information to criminally investigate or prosecute any alcohol or drug abuse patient.[facility] CenterIn the event this information is protected by the Federal Confidentiality of Alcohol and Drug Abuse Patient Records regulations: The Federal rules restrict any use of the information to criminally investigate or prosecute any alcohol or drug abuse patient.[facility] CenterIn the event this information is protected by the Federal Confidentiality of Alcohol and Drug Abuse Patient Records regulations: The Federal rules restrict any use of the information to criminally investigate or prosecute any alcohol or drug abuse patient.[facility] CenterIn the event this information is protected by the Federal Confidentiality of Alcohol and Drug Abuse Patient Records regulations: The Federal rules restrict any use of the information to criminally investigate or prosecute any alcohol or drug abuse patient.[facility] CenterIn the event this information is protected by the Federal Confidentiality of Alcohol and Drug Abuse Patient Records regulations: The Federal rules restrict any use of the information to criminally investigate or prosecute any alcohol or drug abuse patient.[facility] CenterIn the event this information is protected by the Federal Confidentiality of Alcohol and Drug Abuse Patient Records regulations: The Federal rules restrict any use of the information to criminally investigate or prosecute any alcohol or drug abuse patient.[facility] CenterIn the event this information is protected by the Federal Confidentiality of Alcohol and Drug Abuse Patient Records regulations: The Federal rules restrict any use of the information to criminally investigate or prosecute any alcohol or drug abuse patient.[facility] CenterIn the event this information is protected by the Federal Confidentiality of Alcohol and Drug Abuse Patient Records regulations: The Federal rules restrict any use of the information to criminally investigate or prosecute any alcohol or drug abuse patient.[facility] CenterIn the event this information is protected by the Federal Confidentiality of Alcohol and Drug Abuse Patient Records regulations: The Federal rules restrict any use of the information to criminally investigate or prosecute any alcohol or drug abuse patient.[facility] CenterIn the event this information is protected by the Federal Confidentiality of Alcohol and Drug Abuse Patient Records regulations: The Federal rules restrict any use of the information to criminally investigate or prosecute any alcohol or drug abuse patient.[facility] CenterIn the event this information is protected by the Federal Confidentiality of Alcohol and Drug Abuse Patient Records regulations: The Federal rules restrict any use of the information to criminally investigate or prosecute any alcohol or drug abuse patient.[facility] CenterIn the event this information is protected by the Federal Confidentiality of Alcohol and Drug Abuse Patient Records regulations: The Federal rules restrict any use of the information to criminally investigate or prosecute any alcohol or drug abuse patient.[facility] CenterIn the event this information is protected by the Federal Confidentiality of Alcohol and Drug Abuse Patient Records regulations: The Federal rules restrict any use of the information to criminally investigate or prosecute any alcohol or drug abuse patient.[facility] CenterIn the event this information is protected by the Federal Confidentiality of Alcohol and Drug Abuse Patient Records regulations: The Federal rules restrict any use of the information to criminally investigate or prosecute any alcohol or drug abuse patient.[facility] CenterIn the event this information is protected by the Federal Confidentiality of Alcohol and Drug Abuse Patient Records regulations: The Federal rules restrict any use of the information to criminally investigate or prosecute any alcohol or drug abuse patient.[facility] CenterIn the event this information is protected by the Federal Confidentiality of Alcohol and Drug Abuse Patient Records regulations: The Federal rules restrict any use of the information to criminally investigate or prosecute any alcohol or drug abuse patient.[facility] CenterIn the event this information is protected by the Federal Confidentiality of Alcohol and Drug Abuse Patient Records regulations: The Federal rules restrict any use of the information to criminally investigate or prosecute any alcohol or drug abuse patient.[facility] CenterIn the event this information is protected by the Federal Confidentiality of Alcohol and Drug Abuse Patient Records regulations: The Federal rules restrict any use of the information to criminally investigate or prosecute any alcohol or drug abuse patient.[facility] CenterIn the event this information is protected by the Federal Confidentiality of Alcohol and Drug Abuse Patient Records regulations: The Federal rules restrict any use of the information to criminally investigate or prosecute any alcohol or drug abuse patient.[facility] CenterIn the event this information is protected by the Federal Confidentiality of Alcohol and Drug Abuse Patient Records regulations: The Federal rules restrict any use of the information to criminally investigate or prosecute any alcohol or drug abuse patient.[facility] CenterIn the event this information is protected by the Federal Confidentiality of Alcohol and Drug Abuse Patient Records regulations: The Federal rules restrict any use of the information to criminally investigate or prosecute any alcohol or drug abuse patient.[facility] CenterIn the event this information is protected by the Federal Confidentiality of Alcohol and Drug Abuse Patient Records regulations: The Federal rules restrict any use of the information to criminally investigate or prosecute any alcohol or drug abuse patient.[facility] CenterIn the event this information is protected by the Federal Confidentiality of Alcohol and Drug Abuse Patient Records regulations: The Federal rules restrict any use of the information to criminally investigate or prosecute any alcohol or drug abuse patient.[facility] CenterIn the event this information is protected by the Federal Confidentiality of Alcohol and Drug Abuse Patient Records regulations: The Federal rules restrict any use of the information to criminally investigate or prosecute any alcohol or drug abuse patient.[facility] CenterIn the event this information is protected by the Federal Confidentiality of Alcohol and Drug Abuse Patient Records regulations: The Federal rules restrict any use of the information to criminally investigate or prosecute any alcohol or drug abuse patient.[facility] CenterIn the event this information is protected by the Federal Confidentiality of Alcohol and Drug Abuse Patient Records regulations: The Federal rules restrict any use of the information to criminally investigate or prosecute any alcohol or drug abuse patient.[facility] CenterIn the event this information is protected by the Federal Confidentiality of Alcohol and Drug Abuse Patient Records regulations: The Federal rules restrict any use of the information to criminally investigate or prosecute any alcohol or drug abuse patient.[facility] CenterIn the event this information is protected by the Federal Confidentiality of Alcohol and Drug Abuse Patient Records regulations: The Federal rules restrict any use of the information to criminally investigate or prosecute any alcohol or drug abuse patient.[facility] CenterIn the event this information is protected by the Federal Confidentiality of Alcohol and Drug Abuse Patient Records regulations: The Federal rules restrict any use of the information to criminally investigate or prosecute any alcohol or drug abuse patient.[facility] CenterIn the event this information is protected by the Federal Confidentiality of Alcohol and Drug Abuse Patient Records regulations: The Federal rules restrict any use of the information to criminally investigate or prosecute any alcohol or drug abuse patient.[facility] CenterIn the event this information is protected by the Federal Confidentiality of Alcohol and Drug Abuse Patient Records regulations: The Federal rules restrict any use of the information to criminally investigate or prosecute any alcohol or drug abuse patient.[facility] CenterIn the event this information is protected by the Federal Confidentiality of Alcohol and Drug Abuse Patient Records regulations: The Federal rules restrict any use of the information to criminally investigate or prosecute any alcohol or drug abuse patient.[facility] the event this information is protected by the Federal Confidentiality of Alcohol and Drug Abuse Patient Records regulations: The Federal rules restrict any use of the information to criminally investigate or prosecute any alcohol or drug abuse patient.[facility] CenterIn the event this information is protected by the Federal Confidentiality of Alcohol and Drug Abuse Patient Records regulations: The Federal rules restrict any use of the information to criminally investigate or prosecute any alcohol or drug abuse patient.[facility] CenterIn the event this information is [...] or prosecute any alcohol or drug abuse patient.[facility] CenterIn the event this information is protected by the Federal Confidentiality of Alcohol and Drug Abuse Patient Records regulations: The Federal rules restrict any use of the information to criminally investigate or prosecute any alcohol or drug abuse patient.[facility] CenterIn the event this information is protected by the Federal Confidentiality of Alcohol and Drug Abuse Patient Records regulations: The Federal rules restrict any use of the information to criminally investigate or prosecute any alcohol or drug abuse patient.[facility] CenterIn the event this information is protected by the Federal Confidentiality of Alcohol and Drug Abuse Patient Records regulations: The Federal rules restrict any use of the information to criminally investigate or prosecute any alcohol or drug abuse patient.[facility] CenterIn the event this information is protected by the Federal Confidentiality of Alcohol and Drug Abuse Patient Records regulations: The Federal rules restrict any use of the information to criminally investigate or prosecute any alcohol or drug abuse patient.[facility] CenterIn the event this information is protected by the Federal Confidentiality of Alcohol and Drug Abuse Patient Records regulations: The Federal rules restrict any use of the information to criminally investigate or prosecute any alcohol or drug abuse patient.[facility] CenterIn the event this information is protected by the Federal Confidentiality of Alcohol and Drug Abuse Patient Records regulations: The Federal rules restrict any use of the information to criminally investigate or prosecute any alcohol or drug abuse patient.[facility] CenterIn the event this information is protected by the Federal Confidentiality of Alcohol and Drug Abuse Patient Records regulations: The Federal rules restrict any use of the information to criminally investigate or prosecute any alcohol or drug abuse patient.[facility] CenterIn the event this information is protected by the Federal Confidentiality of Alcohol and Drug Abuse Patient Records regulations: The Federal rules restrict any use of the information to criminally investigate or prosecute any alcohol or drug abuse patient.[facility] CenterIn the event this information is protected by the Federal Confidentiality of Alcohol and Drug Abuse Patient Records regulations: The Federal rules restrict any use of the information to criminally investigate or prosecute any alcohol or drug abuse patient.[facility] CenterIn the event this information is protected by the Federal Confidentiality of Alcohol and Drug Abuse Patient Records regulations: The Federal rules restrict any use of the information to criminally investigate or prosecute any alcohol or drug abuse patient.[facility] CenterIn the event this information is protected by the Federal Confidentiality of Alcohol and Drug Abuse Patient Records regulations: The Federal rules restrict any use of the information to criminally investigate or prosecute any alcohol or drug abuse patient.[facility] CenterIn the event this information is protected by the Federal Confidentiality of Alcohol and Drug Abuse Patient Records regulations: The Federal rules restrict any use of the information to criminally investigate or prosecute any alcohol or drug abuse patient.[facility] CenterIn the event this information is protected by the Federal Confidentiality of Alcohol and Drug Abuse Patient Records regulations: The Federal rules restrict any use of the information to criminally investigate or prosecute any alcohol or drug abuse patient.[facility] CenterIn the event this information is protected by the Federal Confidentiality of Alcohol and Drug Abuse Patient Records regulations: The Federal rules restrict any use of the information to criminally investigate or prosecute any alcohol or drug abuse patient.[facility] CenterIn the event this information is protected by the Federal Confidentiality of Alcohol and Drug Abuse Patient Records regulations: The Federal rules restrict any use of the information to criminally investigate or prosecute any alcohol or drug abuse patient.[facility] CenterIn the event this information is protected by the Federal Confidentiality of Alcohol and Drug Abuse Patient Records regulations: The Federal rules restrict any use of the information to criminally investigate or prosecute any alcohol or drug abuse patient.[facility] CenterIn the event this information is protected by the Federal Confidentiality of Alcohol and Drug Abuse Patient Records regulations: The Federal rules restrict any use of the information to criminally investigate or prosecute any alcohol or drug abuse patient.[facility] CenterIn the event this information is protected by the Federal Confidentiality of Alcohol and Drug Abuse Patient Records regulations: The Federal rules restrict any use of the information to criminally investigate or prosecute any alcohol or drug abuse patient.[facility] CenterIn the event this information is protected by the Federal Confidentiality of Alcohol and Drug Abuse Patient Records regulations: The Federal rules restrict any use of the information to criminally investigate or prosecute any alcohol or drug abuse patient.[facility] CenterIn the event this information is protected by the Federal Confidentiality of Alcohol and Drug Abuse Patient Records regulations: The Federal rules restrict any use of the information to criminally investigate or prosecute any alcohol or drug abuse patient.[facility] CenterIn the event this information is protected by the Federal Confidentiality of Alcohol and Drug Abuse Patient Records regulations: The Federal rules restrict any use of the information to criminally investigate or prosecute any alcohol or drug abuse patient.[facility] CenterIn the event this information is protected by the Federal Confidentiality of Alcohol and Drug Abuse Patient Records regulations: The Federal rules restrict any use of the information to criminally investigate or prosecute any alcohol or drug abuse patient.[facility] CenterIn the event this information is protected by the Federal Confidentiality of Alcohol and Drug Abuse Patient Records regulations: The Federal rules restrict any use of the information to criminally investigate or prosecute any alcohol or drug abuse patient.[facility] CenterIn the event this information is protected by the Federal Confidentiality of Alcohol and Drug Abuse Patient Records regulations: The Federal rules restrict any use of the information to criminally investigate or prosecute any alcohol or drug abuse patient.[facility] CenterIn the event this information is protected by the Federal Confidentiality of Alcohol and Drug Abuse Patient Records regulations: The Federal rules restrict any use of the information to criminally investigate or prosecute any alcohol or drug abuse patient.[facility] CenterIn the event this information is protected by the Federal Confidentiality of Alcohol and Drug Abuse Patient Records regulations: The Federal rules restrict any use of the information to criminally investigate or prosecute any alcohol or drug abuse patient.[facility] CenterIn the event this information is protected by the Federal Confidentiality of Alcohol and Drug Abuse Patient Records regulations: The Federal rules restrict any use of the information to criminally investigate or prosecute any alcohol or drug abuse patient.[facility] CenterIn the event this information is protected by the Federal Confidentiality of Alcohol and Drug Abuse Patient Records regulations: The Federal rules restrict any use of the information to criminally investigate or prosecute any alcohol or drug abuse patient.[facility] CenterIn the event this information is protected by the Federal Confidentiality of Alcohol and Drug Abuse Patient Records regulations: The Federal rules restrict any use of the information to criminally investigate or prosecute any alcohol or drug abuse patient.[facility] CenterIn the event this information is protected by the Federal Confidentiality of Alcohol and Drug Abuse Patient Records regulations: The Federal rules restrict any use of the information to criminally investigate or prosecute any alcohol or drug abuse patient.[facility] CenterIn the event this information is protected by the Federal Confidentiality of Alcohol and Drug Abuse Patient Records regulations: The Federal rules restrict any use of the information to criminally investigate or prosecute any alcohol or drug abuse patient.[facility] CenterIn the event this information is protected by the Federal Confidentiality of Alcohol and Drug Abuse Patient Records regulations: The Federal rules restrict any use of the information to criminally investigate or prosecute any alcohol or drug abuse patient.[facility] CenterIn the event this information is protected by the Federal Confidentiality of Alcohol and Drug Abuse Patient Records regulations: The Federal rules restrict any use of the information to criminally investigate or prosecute any alcohol or drug abuse patient.[facility] CenterIn the event this information is protected by the Federal Confidentiality of Alcohol and Drug Abuse Patient Records regulations: The Federal rules restrict any use of the information to criminally investigate or prosecute any alcohol or drug abuse patient.[facility] CenterIn the event this information is protected by the Federal Confidentiality of Alcohol and Drug Abuse Patient Records regulations: The Federal rules restrict any use of the information to criminally investigate or prosecute any alcohol or drug abuse patient.[facility] CenterIn the event this information is protected by the Federal Confidentiality of Alcohol and Drug Abuse Patient Records regulations: The Federal rules restrict any use of the information to criminally investigate or prosecute any alcohol or drug abuse patient.[facility] CenterIn the event this information is protected by the Federal Confidentiality of Alcohol and Drug Abuse Patient Records regulations: The Federal rules restrict any use of the information to criminally investigate or prosecute any alcohol or drug abuse patient.[facility] CenterIn the event this information is protected by the Federal Confidentiality of Alcohol and Drug Abuse Patient Records regulations: The Federal rules restrict any use of the information to criminally investigate or prosecute any alcohol or drug abuse patient.[facility] CenterIn the event this information is protected by the Federal Confidentiality of Alcohol and Drug Abuse Patient Records regulations: The Federal rules restrict any use of the information to criminally investigate or prosecute any alcohol or drug abuse patient.[facility] CenterIn the event this information is protected by the Federal Confidentiality of Alcohol and Drug Abuse Patient Records regulations: The Federal rules restrict any use of the information to criminally investigate or prosecute any alcohol or drug abuse patient.[facility] CenterIn the event this information is protected by the Federal Confidentiality of Alcohol and Drug Abuse Patient Records regulations: The Federal rules restrict any use of the information to criminally investigate or prosecute any alcohol or drug abuse patient.[facility] CenterIn the event this information is protected by the Federal Confidentiality of Alcohol and Drug Abuse Patient Records regulations: The Federal rules restrict any use of the information to criminally investigate or prosecute any alcohol or drug abuse patient.[facility] CenterIn the event this information is protected by the Federal Confidentiality of Alcohol and Drug Abuse Patient Records regulations: The Federal rules restrict any use of the information to criminally investigate or prosecute any alcohol or drug abuse patient.[facility] CenterIn the event this information is protected by the Federal Confidentiality of Alcohol and Drug Abuse Patient Records regulations: The Federal rules restrict any use of the information to criminally investigate or prosecute any alcohol or drug abuse patient.[facility] CenterIn the event this information is protected by the Federal Confidentiality of Alcohol and Drug Abuse Patient Records regulations: The Federal rules restrict any use of the information to criminally investigate or prosecute any alcohol or drug abuse patient.[facility] CenterIn the event this information is protected by the Federal Confidentiality of Alcohol and Drug Abuse Patient Records regulations: The Federal rules restrict any use of the information to criminally investigate or prosecute any alcohol or drug abuse patient.[facility] the event this information is protected by the Federal Confidentiality of Alcohol and Drug Abuse Patient Records regulations: The Federal rules restrict any use of the information to criminally investigate or prosecute any alcohol or drug abuse patient.[facility] CenterIn the event this information is protected by the Federal Confidentiality of Alcohol and Drug Abuse Patient Records regulations: The Federal rules restrict any use of the information to criminally investigate or prosecute any alcohol or drug abuse patient.[facility] CenterIn the event this information is [...] or prosecute any alcohol or drug abuse patient.[facility] CenterIn the event this information is protected by the Federal Confidentiality of Alcohol and Drug Abuse Patient Records regulations: The Federal rules restrict any use of the information to criminally investigate or prosecute any alcohol or drug abuse patient.[facility] CenterIn the event this information is protected by the Federal Confidentiality of Alcohol and Drug Abuse Patient Records regulations: The Federal rules restrict any use of the information to criminally investigate or prosecute any alcohol or drug abuse patient.[facility] CenterIn the event this information is protected by the Federal Confidentiality of Alcohol and Drug Abuse Patient Records regulations: The Federal rules restrict any use of the information to criminally investigate or prosecute any alcohol or drug abuse patient.[facility] CenterIn the event this information is protected by the Federal Confidentiality of Alcohol and Drug Abuse Patient Records regulations: The Federal rules restrict any use of the information to criminally investigate or prosecute any alcohol or drug abuse patient.[facility] CenterIn the event this information is protected by the Federal Confidentiality of Alcohol and Drug Abuse Patient Records regulations: The Federal rules restrict any use of the information to criminally investigate or prosecute any alcohol or drug abuse patient.[facility] CenterIn the event this information is protected by the Federal Confidentiality of Alcohol and Drug Abuse Patient Records regulations: The Federal rules restrict any use of the information to criminally investigate or prosecute any alcohol or drug abuse patient.[facility] CenterIn the event this information is protected by the Federal Confidentiality of Alcohol and Drug Abuse Patient Records regulations: The Federal rules restrict any use of the information to criminally investigate or prosecute any alcohol or drug abuse patient.[facility] CenterIn the event this information is protected by the Federal Confidentiality of Alcohol and Drug Abuse Patient Records regulations: The Federal rules restrict any use of the information to criminally investigate or prosecute any alcohol or drug abuse patient.[facility] CenterIn the event this information is protected by the Federal Confidentiality of Alcohol and Drug Abuse Patient Records regulations: The Federal rules restrict any use of the information to criminally investigate or prosecute any alcohol or drug abuse patient.[facility] CenterIn the event this information is protected by the Federal Confidentiality of Alcohol and Drug Abuse Patient Records regulations: The Federal rules restrict any use of the information to criminally investigate or prosecute any alcohol or drug abuse patient.[facility] Reason for Visit (unrecogniz ed [...] CT Specialty Diagnoses / Procedures [facility] CT IMAGING Diagnoses Abnormal CT of the abdomen Liver 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 Procedures CT ABD/PEL W IVCON CT ABD & PELVIS W/CONTRAST Chad Mariee, REED OR WIND INSTRUMENT REPAIRER.TOOL MACHINE SETUP OPERATOR [address] [place] [address] [place] [address] Referral ID Status Reason Start Date Expiration Date V isits Requested Visits Authorized [id number] Closed Auto-Generate d Referral 11/25/2022 12/25/2022 2 2 Reason Comments Radiology US Specialty Diagnoses / Procedures [facility] To Contact US IMAGING Diagnoses Epigastric pain Procedures US ABD RT UPPER QUADRANT US ABDOMINAL REAL TIME W/IMAGE LIMITED Clifton Hung MD [address] [place] [address] [place] [address] Referral ID Status Reason Start Date Expiration Date V isits Requested Visits Authorized [id number] Closed Auto-Generate d Referral 09/03/2022 10/03/2023 1 1 Specialty Diagnoses / Procedures [facility] Ref[facility] To Contact CT IMAGING Diagnoses Breast neoplasm, Tis (DCIS), left Nausea Pain of upper abdomen Procedures CT CHEST W IVCON DIAGNOSTIC COMPUTED TOMOGRAPHY THORAX W/CONTRAST Chad Mariee, REED OR WIND INSTRUMENT REPAIRER.TOOL MACHINE SETUP OPERATOR [address] [place] [address] [place] [address] Referral ID Status Reason Start Date Expiration Date V isits Requested Visits Authorized [id number] Closed Auto-Generate d Referral 09/15/2022 10/15/2022 2 2 Reason Comments Outside Ophtalmology Reason Comments Outside [id number] Ordered Reason Comments ER Discharge Summary Reason [...] NEW HIGH MDM 60 MINUTES Francine Madrid APRN.[facility] [address] [place] [address] Referral ID Status Reason Start Date Expiration Date V isits Requested Visits Authorized [id number] Closed PCP Requested Referral 04/20/2024 04/20/2025 1 [...] concerns. Patient is scheduled to see an Shock Absorption Floor Layer on 07/11/24. Reason Comments Adrenal Adenoma of right adr enal gland Specialty Diagnoses / Procedures Referred By Jared hernández Referred To Contact Endocrinology Diagnoses Adenoma of right adrenal gland Procedures CONSULT TO ENDOCRINOLOGY OFFICE/OUTPATIENT NEW HIGH MDM 60 MINUTES Ori Lord DO [address] [place] [address] Referral ID Status Reason Start Date Expiration Date V isits Requested Visits Authorized [id number] Closed PCP Requested Referral 05/23/2024 05/23/2025 1 [...] Alexa Matute MD [address] [place] [address] [place] [address] Referral ID Status Reason Start Date Expiration Date V isits Requested Visits Authorized [id number] Closed Auto-Generate d Referral 08/15/2024 10/14/2024 1 [...] Population Health Navigation Outreach 04/12/2025 [employer] [place] Reason Comments UTI X3 days Reason Onset Date Comments Allied Health Visit 05/14/2025 Medication A dherence Outreach Reason Onset Date Comments Allied Health Visit 05/17/2025 Medication A dherence Outreach Care Teams (unrecognized sec tion and content) Civil Engineer'S Aide Relationship Specialty Start Date End Date Cliftno Hung MD [address] [place], [place] [id number] PCP - General Family Practice 01/16/16 Renata Barnhart MD, [address] [place], [place] [id number] Physician Radiation Oncology 04/25/21 Civil Engineer'S Aide Relationship Specialty Start Date End Date Clifton Hung MD [address] [facility] [place] [address] PCP - General Family Practice 01/16/16 Renata Barnhart MD, [address] [address] Physician Radiation Oncology 04/25/21 Civil Engineer'S Aide Relationship Specialty Start Date End Date Clifton Hung MD [address] [facility] [place] [address] PCP - General Family Practice 01/16/16 Renata Barnhart MD, MD [address] [place] [address] Physician Radiation Oncology 04/25/21 Civil Engineer'S Aide Relationship Specialty Start Date End Date Clifton Hung MD [address] [facility] [place] [address] PCP - General Family Practice 01/16/16 Renata Barnhart MD, MD [address] [place] [address] Physician Radiation Oncology 04/25/21 Civil Engineer'S Aide Relationship Specialty Start Date End Date Clifton Hung MD [address] [place] [address] PCP - General Family Practice 01/16/16 Renata Barnhart MD, [address] [place] [address] Physician Radiation Oncology 04/25/21 Civil Engineer'S Aide Relationship Specialty Start Date End Date Clifton Hung MD [address] [facility] [place] [address] PCP - General Family Practice 01/16/16 Renata Barnhart MD, [address] [place] [address] Physician Radiation Oncology 04/25/21 Civil Engineer'S Aide Relationship Specialty Start Date End Date Clifton Hung MD [address] [facility] [place] [address] PCP - General Family Practice 01/16/16 Renata Barnhatr MD, [address] [place] [address] Physician Radiation Oncology 04/25/21 Civil Engineer'S Aide Relationship Specialty Start Date End Date Clifton Hung MD [address] [place] [address] PCP - General Family Practice 01/16/16 Renata Barnhart MD, [address] [place] [address] Physician Radiation Oncology 04/25/21 Civil Engineer'S Aide Relationship Specialty Start Date End Date Clifotn Hung MD [address] [facility] [place] [address] PCP - General Family Practice 01/16/16 Renata Barnhart MD, [address] [place] [address] Physician Radiation Oncology 04/25/21 Civil Engineer'S Aide Relationship Specialty Start Date End Date Clifton Hung MD [address] [facility] [place] [address] PCP - General Family Practice 01/16/16 Renata Barnhart MD, [address] [place] [address] Physician Radiation Oncology 04/25/21 Civil Engineer'S Aide Relationship Specialty Start Date End Date Clifton Hung MD [address] [place] [address] PCP - General Family Medicine 01/16/16 Renata Barnhart MD, [address] [place] [facility] [address] Physician Radiation Oncology 04/25/21 Civil Engineer'S Aide Relationship Specialty Start Date End Date Clifton Hung MD [address] [facility] [place] [address] PCP - General Family Medicine 01/16/16 Renata Barnhart MD, [address] [place] [address] Physician Radiation Oncology 04/25/21 Civil Engineer'S Aide Relationship Specialty Start Date End Date Clifton Hung MD [address] [facility] [place] [place] [address] PCP - General Family Medicine 01/16/16 Renata Barnhart MD, [address] [place] [address] Physician Radiation Oncology 04/25/21 Civil Engineer'S Aide Relationship Specialty Start Date End Date Clifton Hung MD [address] [facility] [place] [place] [address] PCP - General Family Medicine 01/16/16 Renata Barnhart MD, [address] [place] [address] Physician Radiation Oncology 04/25/21 Civil Engineer'S Aide Relationship Specialty Start Date End Date Clifton Hung MD [address] [facility] [place] [address] PCP - General Family Medicine 01/16/16 Renata Barnhart MD, [address] [place] [address] Physician Radiation Oncology 04/25/21 Civil Engineer'S Aide Relationship Specialty Start Date End Date Clifton Hung MD [address] [facility] [place] [address] PCP - General Family Medicine 01/16/16 Renata Barnhart MD, [address] [place] [address] Physician Radiation Oncology 04/25/21 Civil Engineer'S Aide Relationship Specialty Start Date End Date Clifton Hung MD [address] [facility] [place] [place] [address] PCP - General Family Medicine 01/16/16 Renata Barnhart MD, [address] [place] [address] Physician Radiation Oncology 04/25/21 Civil Engineer'S Aide Relationship Specialty Start Date End Date Clifton Hung MD [address] [facility] [place] [place] [address] PCP - General Family Medicine 01/16/16 Renata Barnhart MD, [address] [place] [address] Physician Radiation Oncology 04/25/21 Civil Engineer'S Aide Relationship Specialty Start Date End Date Clifton Hung MD [address] [facility] [place] [place] [address] PCP - General Family Medicine 01/16/16 Renata Barnhart MD, [address] [place] [address] Physician Radiation Oncology 04/25/21 Civil Engineer'S Aide Relationship Specialty Start Date End Date Clifton Hung MD [address] [place] [address] PCP - General Family Medicine 01/16/16 Renata Barnhart MD, [address] [place] [address] Physician Radiation Oncology 04/25/21 Civil Engineer'S Aide Relationship Specialty Start Date End Date Clifton Hung MD [address] [place] [address] PCP - General Family Medicine 01/16/16 Renata Barnhart MD, [address] [place] [address] Physician Radiation Oncology 04/25/21 Civil Engineer'S Aide Relationship Specialty Start Date End Date Clifton Hung MD [address] [facility] [place] [address] PCP - General Family Medicine 01/16/16 Renata Barnhart MD, [address] [place] [address] Physician Radiation Oncology 04/25/21 Civil Engineer'S Aide Relationship Specialty Start Date End Date Clifton Hung MD [address] [facility] [place] [address] PCP - General Family Medicine 01/16/16 Renata Barnhart MD, [address] [place] [address] Physician Radiation Oncology 04/25/21 Civil Engineer'S Aide Relationship Specialty Start Date End Date Clifton Hung MD [address] [facility] [place] [address] PCP - General Family Medicine 01/16/16 Renata Barnhart MD, [address] [place] [address] Physician Radiation Oncology 04/25/21 Civil Engineer'S Aide Relationship Specialty Start Date End Date Clifton Hung MD [address] [facility] [place] [address] PCP - General Family Medicine 01/16/16 Renata Barnhart MD, [address] [facility] [place] [address] Physician Radiation Oncology 04/25/21 Civil Engineer'S Aide Relationship Specialty Start Date End Date Clifton Hung MD [address] [facility] [place] [address] PCP - General Family Medicine 01/16/16 Renata Barnhart MD, [address] [facility]], [place] [address] Physician Radiation Oncology 04/25/21 Team Status: Active Member Role Status Dates Dr. Clifton Hung MD Family Provider Active Dr. Clifton Hung MD Primary Care Provider Active Team Status: Inactive Member Role Status Dates Dr. Clifton Hung MD Primary Care Provider, Referri ng Provider Active Octaviano Humphries HOSPICE ADMINISTRATOR, HOSPICE ADMINISTRATOR-C Attending Provider Active Team Status: Inactive Member Role Status Dates Dr. Clifton Hung MD Primary Care Provider, Referri ng Provider Active Karin Coles HOSPICE ADMINISTRATOR, HOSPICE ADMINISTRATOR-C Attending Provider Active Team Status: Inactive Member Role Status Dates Dr. Clifton Hung MD Primary Care Provider Active Karin Coles HOSPICE ADMINISTRATOR, HOSPICE ADMINISTRATOR-C Attending Provider, Referrin g Provider Active Team Status: Active Member Role Status Dates Dr. Clifton Hung MD Primary Care Provider Active Karin Coles HOSPICE ADMINISTRATOR, HOSPICE ADMINISTRATOR-C Attending Provider, Referrin g Provider Active Team Status: Active Member Role Status Dates Dr. Clifton Hung MD Primary Care Provider, Referri ng Provider Active Dr. Carson Alcantar DO Attending Provider, Other Prov ider Active Team Status: Inactive Member Role Status Dates Dr. Clifton Hung MD Primary Care Provider, Referri ng Provider Active Dr. Carson Alcantar DO Attending Provider Active Civil Engineer'S Aide Relationship Specialty Start Date End Date Clifotn Hung MD [address] [facility] [place] [address] PCP - General Family Medicine 01/16/16 Renata Barnhart MD, [address] [facility] [place] [address] Physician Radiation Oncology 04/25/21 Team Status: Inactive Member Role Status Dates Dr. Clifton Hung MD Primary Care Provider Active Dr. Carson Alcantar DO Attending Provider Active Civil Engineer'S Aide Relationship Specialty Start Date End Date Clifton Hung MD [address] [facility] [place] [address] PCP - General Family Medicine 01/16/16 Renata Barnhart MD, [address] [facility] [place] [address] Physician Radiation Oncology 04/25/21 Civil Engineer'S Aide Relationship Specialty Start Date End Date Clifton Hung MD [address] [facility] [place] [address] PCP - General Family Medicine 01/16/16 Renata Barnhart MD, [address] [facility] [place] [address] Physician Radiation Oncology 04/25/21 Civil Engineer'S Aide Relationship Specialty Start Date End Date Clifton Hung MD [address] [facility] [place] [address] PCP - General Family Medicine 01/16/16 Renata Barnhart MD, [address] [facility] [place] [address] Physician Radiation Oncology 04/25/21 Team Status: Inactive Member Role Status Dates Dr. Clifton Hung MD Primary Care Provider Active Dr. Carson Alcantar DO Attending Provider, Referring Provider Active Civil Engineer'S Aide Relationship Specialty Start Date End Date Clifton Hung MD [address] [place] [address] PCP - General Family Medicine 01/16/16 Renata Barnhart MD, MD [address] [place] [address] Physician Radiation Oncology 04/25/21 Civil Engineer'S Aide Relationship Specialty Start Date End Date Clifton Hung MD [address] [place] [address] PCP - General Family Medicine 01/16/16 Renata Barnhart MD, [address] [place] [address] Physician Radiation Oncology 04/25/21 Civil Engineer'S Aide Relationship Specialty Start Date End Date Clifton Hung MD [address] [place] [address] PCP - General Family Medicine 01/16/16 Renata Barnhart MD, [address] [place] [address] Physician Radiation Oncology 04/25/21 Civil Engineer'S Aide Relationship Specialty Start Date End Date Clifton Hung MD [address] [place] [address] PCP - General Family Medicine 01/16/16 Renata Barnhart MD, [address] [place] [address] Physician Radiation Oncology 04/25/21 Civil Engineer'S Aide Relationship Specialty Start Date End Date Clifton Hung MD [address] [place] [address] PCP - General Family Medicine 01/16/16 Renata Barnhart MD, [address] [place] [address] Physician Radiation Oncology 04/25/21 Civil Engineer'S Aide Relationship Specialty Start Date End Date Clifton Hung MD [address] [place] [address] PCP - General Family Medicine 01/16/16 Renata Barnhart MD, [address] [place] [address] Physician Radiation Oncology 04/25/21 Civil Engineer'S Aide Relationship Specialty Start Date End Date Clifton Hung MD [address] [place] [address] PCP - General Family Medicine 01/16/16 Renata Barnhart MD, [address] [place] [address] Physician Radiation Oncology 04/25/21 Civil Engineer'S Aide Relationship Specialty Start Date End Date Clifton Hung MD [address] [place] [address] PCP - General Family Medicine 01/16/16 Renata Barnhart MD, [address] [place] [address] Physician Radiation Oncology 04/25/21 Civil Engineer'S Aide Relationship Specialty Start Date End Date Clifton Hung MD [address] [facility] [place] [address] PCP - General Family Medicine 01/16/16 Renata Barnhart MD, MD [address] [place] [address] Physician Radiation Oncology 04/25/21 Civil Engineer'S Aide Relationship Specialty Start Date End Date Clifton Hung MD [address] [place] [address] PCP - General Family Medicine 01/16/16 Renata Barnhart MD, [address] [place], [place] [address] Physician Radiation Oncology 04/25/21 Team Status: Active Member Role Status Dates Dr. Clifton uHng MD Primary Care Provider Active Octaviano Humphries HOSPICE ADMINISTRATOR, HOSPICE ADMINISTRATOR-C Referring Provider, Other Provide r Active Dr. Karsten Zarate MD Attending Provider Active Team Status: Inactive Member Role Status Dates Dr. Clifton Hung MD Primary Care Provider Active Octaviano Humphries HOSPICE ADMINISTRATOR, HOSPICE ADMINISTRATOR-C Attending Provider, Referring Pro vider Active Team Status: Inactive Member Role Status Dates Dr. Clifton Hung MD Primary Care Provider Active Dr. Rafita Fraser DO Attending Provider, Emergency Pro vider Active Team Status: Active Member Role Status Dates Dr. Clifton Hung MD Primary Care Provider Active Octaviano Humphries HOSPICE ADMINISTRATOR, HOSPICE ADMINISTRATOR-C Attending Provider, Referring Pro vider Active Civil Engineer'S Aide Relationship Specialty Start Date End Date Clifton Hung MD [address] [place] [address] PCP - General Family Medicine 01/16/16 Renata Barnhart MD, [address] [place] [address] Physician Radiation Oncology 04/25/21 Team Status: Active Member Role Status Dates Dr. Clifton Hung MD Primary Care Provider Active Octaviano Humphries HOSPICE ADMINISTRATOR, HOSPICE ADMINISTRATOR-C Attending Provider Active Team Status: Active Member Role Status Dates Dr. Clifton Hung MD Primary Care Provider Active Dr. Karsten Zarate MD Attending Provider Active Octaviano Humphries HOSPICE ADMINISTRATOR, HOSPICE ADMINISTRATOR-C Referring Provider Active Team Status: Inactive Member Role Status Dates Dr. Clifton Hung MD Primary Care Provider Active Dr. Caro Pedro MD Emergency Provider Active Civil Engineer'S Aide Relationship Specialty Start Date End Date Clifton Hung MD [address] [facility] [place] [address] PCP - General Family Medicine 01/16/16 Renata Barnhart MD [address] [place] [address] Physician Radiation Oncology 04/25/21 Team Status: Inactive Member Role Status Dates Dr. Clifton Hung MD Primary Care Provider Active Dr. Caro Pedro MD Attending Provider, Emergency Provider Active Team Status: Inactive Member Role Status Dates Dr. Clifton Hung MD Primary Care Provider Active Dr. Victor M Hernandez DO Emergency Provider Active Civil Engineer'S Aide Relationship Specialty Start Date End Date Clifton Hung MD [address] [facility] [place] [address] PCP - General Family Medicine 01/16/16 Renata Barnhart MD [address] [place] [address] Physician Radiation Oncology 04/25/21 Civil Engineer'S Aide Relationship Specialty Start Date End Date Clifton Hung MD [address] [place] [address] PCP - General Family Medicine 01/16/16 Renata Barnhart MD [address] [place] [address] Physician Radiation Oncology 04/25/21 Team Status: Inactive Member Role Status Dates Dr. Clifton Hung MD Primary Care Provider Active Dr. Victor M Hernandez DO Attending Provider, Emergency Pr ovider Active Civil Engineer'S Aide Relationship Specialty Start Date End Date Clifton Hung MD [address] [facility] [place] [address] PCP - General Family Medicine 01/16/16 Renata Barnhart MD [address] [place] [address] Physician Radiation Oncology 04/25/21 Civil Engineer'S Aide Relationship Specialty Start Date End Date Clifton Hung MD [address] [facility] [place] [address] PCP - General Family Medicine 01/16/16 Renata Barnhart MD [address] [place] [address] Physician Radiation Oncology 04/25/21 Civil Engineer'S Aide Relationship Specialty Start Date End Date Clifton Hung MD [address] [place] [address] PCP - General Family Medicine 01/16/16 Renata Barnhart MD [address] [place] [address] Physician Radiation Oncology 04/25/21 Civil Engineer'S Aide Relationship Specialty Start Date End Date Clifton Hung MD [address] [facility] [place] [address] PCP - General Family Medicine 01/16/16 Renata Barnhart MD [address] [facility] [place] [address] Physician Radiation Oncology 04/25/21 Civil Engineer'S Aide Relationship Specialty Start Date End Date Clifton Hung MD [address] [place] [address] PCP - General Family Medicine 01/16/16 Renata Barnhart MD [address] [place] [address] Physician Radiation Oncology 04/25/21 Civil Engineer'S Aide Relationship Specialty Start Date End Date Clifton Hung MD [address] [place] [address] PCP - General Family Medicine 01/16/16 Renata Barnhart MD [address] [address] Physician Radiation Oncology 04/25/21 Civil Engineer'S Aide Relationship Specialty Start Date End Date Clifton Hung MD [address] [address] PCP - General Family Medicine 01/16/16 Renata Barnhart MD [address] [place] [address] Physician Radiation Oncology 04/25/21 Civil Engineer'S Aide Relationship Specialty Start Date End Date Clifton Hung MD [address] [place] [address] PCP - General Family Medicine 01/16/16 Renata Barnhart MD [address] [place] [address] Physician Radiation Oncology 04/25/21 Civil Engineer'S Aide Relationship Specialty Start Date End Date Clifton Hung MD [address] [place] [address] PCP - General Family Medicine 01/16/16 Renata Barnhart MD [address] [place] [address] Physician Radiation Oncology 04/25/21 Civil Engineer'S Aide Relationship Specialty Start Date End Date Clifton Hung MD [address] [place] [address] PCP - General Family Medicine 01/16/16 Renata Barnhart MD [address] [place] [address] Physician Radiation Oncology 04/25/21 Civil Engineer'S Aide Relationship Specialty Start Date End Date Clifton Hung MD [address] [place] [address] PCP - General Family Medicine 01/16/16 Renata Barnhart MD [address] [place] [address] Physician Radiation Oncology 04/25/21 Civil Engineer'S Aide Relationship Specialty Start Date End Date Clifton Hung MD [address] [place] [address] PCP - General Family Medicine 01/16/16 Renata Barnhart MD [address] [address] Physician Radiation Oncology 04/25/21 Civil Engineer'S Aide Relationship Specialty Start Date End Date Clifton Hung MD [address] [facility] [place] [address] PCP - General Family Medicine 01/16/16 Renata Barnhart MD [address] [place] [address] Physician Radiation Oncology 04/25/21 Civil Engineer'S Aide Relationship Specialty Start Date End Date Clifton Hung MD [address] [facility] [place] [address] PCP - General Family Medicine 01/16/16 Renata Barnhart MD [address] [address] Physician Radiation Oncology 04/25/21 Civil Engineer'S Aide Relationship Specialty Start Date End Date Clifton Hung MD [address] [facility] [place] [address] PCP - General Family Medicine 01/16/16 Renata Barnhart MD [address] [address] Physician Radiation Oncology 04/25/21 Civil Engineer'S Aide Relationship Specialty Start Date End Date Clifton Hung MD [address] [place] [address] PCP - General Family Medicine 01/16/16 Renata Barnhart MD [address] [place] [address] Physician Radiation Oncology 04/25/21 Civil Engineer'S Aide Relationship Specialty Start Date End Date Clifton Hung MD [address] [facility] [place] [address] PCP - General Family Medicine 01/16/16 Renata Barnhart MD [address] [place] [address] Physician Radiation Oncology 04/25/21 Civil Engineer'S Aide Relationship Specialty Start Date End Date Clifton Hung MD [address] [facility] [place] [address] PCP - General Family Medicine 01/16/16 Renata Barnhart MD [address] [place] [address] Physician Radiation Oncology 04/25/21 Civil Engineer'S Aide Relationship Specialty Start Date End Date Clifton Hung MD [address] [facility] [place] [address] PCP - General Family Medicine 01/16/16 Renata Barnhart MD [address] [place] [address] Physician Radiation Oncology 04/25/21 Civil Engineer'S Aide Relationship Specialty Start Date End Date Clifton Hung MD [address] [facility] [place] [address] PCP - General Family Medicine 01/16/16 Renata Barnhart MD [address] [place] [address] Physician Radiation Oncology 04/25/21 Civil Engineer'S Aide Relationship Specialty Start Date End Date Clifton Hung MD [address] [facility] [place] [address] PCP - General Family Medicine 01/16/16 Renata Barnhart MD [address] [place] [address] Physician Radiation Oncology 04/25/21 Civil Engineer'S Aide Relationship Specialty Start Date End Date Clifton Hung MD [address] [facility] [place] [address] PCP - General Family Medicine 01/16/16 Renata Barnhart MD [address] [place] [address] Physician Radiation Oncology 04/25/21 Civil Engineer'S Aide Relationship Specialty Start Date End Date Clifton Hung MD [address] [facility] [place] [address] PCP - General Family Medicine 01/16/16 Renata Barnhart MD [address] [place] [address] Physician Radiation Oncology 04/25/21 Civil Engineer'S Aide Relationship Specialty Start Date End Date Clifton Hung MD [address] [place] [address] PCP - General Family Medicine 01/16/16 Renata Barnhart MD [address] [place] [address] Physician Radiation Oncology 04/25/21 Civil Engineer'S Aide Relationship Specialty Start Date End Date Clifton Hung MD [address] [facility] [place] [address] PCP - General Family Medicine 01/16/16 Renata Barnhart MD [address] [place] [address] Physician Radiation Oncology 04/25/21 Francine Madrid APRN.TOOL MACHINE SETUP OPERATOR [address] [place] [address] Aligner Typewriter [facility] 10/14/24 Cherise Sifuentes PA-C [address] [place] [address] Formerly [facility] 10/14/24 Civil Engineer'S Aide Relationship Specialty Start Date End Date Clifton Hung MD [address] [place] [address] PCP - General Family Medicine 01/16/16 Renata Barnhart MD [address] [place] [address] Physician Radiation Oncology 04/25/21 Francine Madrid APRN.TOOL MACHINE SETUP OPERATOR [address] [place] [address] [facility] 10/14/24 Cherise Sifuentes PA-C [address] [facility] [place] [address] Formerly [facility] 10/14/24 Civil Engineer'S Aide Relationship Specialty Start Date End Date Clifton Hung MD [address] [place] [address] PCP - General Family Medicine 01/16/16 Renata Barnhart MD [address] [address] Physician Radiation Oncology 04/25/21 Francine Madrid APRN.TOOL MACHINE SETUP OPERATOR [address] [place] [address] Aligner Typewriter [facility] 10/14/24 Cherise Sifuentes PA-C [address] [place] [address] Aligner Typewriter [facility] 10/14/24 Civil Engineer'S Aide Relationship Specialty Start Date End Date Clifton Hung MD [address] [place] [address] PCP - General Family Medicine 01/16/16 Renata Barnhart MD [address] [place] [address] Physician Radiation Oncology 04/25/21 Francine Madrid APRN.TOOL MACHINE SETUP OPERATOR [address] [place] [address] Aligner Typewriter [facility] 10/14/24 Cherise Sifuentes PA-C [address] [place] [address] Aligner Typewriter [facility] 10/14/24 Civil Engineer'S Aide Relationship Specialty Start Date End Date Clifton Hung MD [address] [place] [address] PCP - General Family Medicine 01/16/16 Renata Barnhart MD [address] [place] [address] Physician Radiation Oncology 04/25/21 Francine Madrid APRN.TOOL MACHINE SETUP OPERATOR [address] [facility] [place] [place] [address] Formerly [facility] 10/14/24 Cherise Sifuentes PA-C [address] [facility] [place] [address] Formerly [facility] 10/14/24 Civil Engineer'S Aide Relationship Specialty Start Date End Date Clifton Hung MD [address] [facility] [place] [address] PCP - General Family Medicine 01/16/16 Renata Barnhart MD [address] [facility] [place] [address] Physician Radiation Oncology 04/25/21 Francine Madrid APRN.TOOL MACHINE SETUP OPERATOR [address] [facility] [place] [address] Formerly [facility] 10/14/24 Cherise Sifuentes PA-C [address] [facility] [place] [address] Formerly [facility] 10/14/24 Civil Engineer'S Aide Relationship Specialty Start Date End Date Clifton Hung MD [address] [facility] [place] [address] PCP - General Family Medicine 01/16/16 Renata Barnhart MD [address] [place] [address] Physician Radiation Oncology 04/25/21 Francine Madrid APRN.TOOL MACHINE SETUP OPERATOR [address] [place] [address] Aligner Typewriter [facility] 10/14/24 Cherise Sifuentes PA-C [address] [place] [address] Aligner Typewriter [facility] 10/14/24 Civil Engineer'S Aide Relationship Specialty Start Date End Date Clifton Hung MD [address] [place] [address] PCP - General Family Medicine 01/16/16 Renata Barnhrat MD [address] [place] [address] Physician Radiation Oncology 04/25/21 Francine Madrid, TERRA.TOOL MACHINE SETUP OPERATOR [address] [place] [address] Aligner Typewriter [facility] 10/14/24 Cherise Sifuentes PA-C [address] [place] [address] [facility] Civil Engineer'S Aide Relationship Specialty Start Date End Date Clifton Hung MD [address] [place] [address] PCP - General Family Medicine 01/16/16 Renata Barnhart MD [address] [place] [address] Physician Radiation Oncology 04/25/21 Francine Madrid, TERRA.TOOL MACHINE SETUP OPERATOR [address] [place] [address] Aligner Typewriter [facility] 10/14/24 Cherise Sifuentes PA-C [address] [facility] [place] [address] Formerly [facility] 10/14/24 Civil Engineer'S Aide Relationship Specialty Start Date End Date Clifton Hung MD [address] [place] [address] PCP - General Family Medicine 01/16/16 Renata Barnhart MD [address] [place] [address] Physician Radiation Oncology 04/25/21 Francine Madrid APRN.TOOL MACHINE SETUP OPERATOR [address] [place] [address] Formerly [facility] 10/14/24 Cherise Sifuentes PA-C [address] [place] [address] Formerly [facility] 10/14/24 Civil Engineer'S Aide Relationship Specialty Start Date End Date Clifton Hung MD [address] [place] [address] PCP - General Family Medicine 01/16/16 Renata Barnhart MD [address] [place] [address] Physician Radiation Oncology 04/25/21 Francine Madrid APRN.TOOL MACHINE SETUP OPERATOR [address] [place] [address] Aligner Typewriter Family Medicine 10/14/24 Cherise Sifuentes PA-C [address] [facility] [place] [address] Aligner Typewriter Family Medicine 10/14/24 Civil Engineer'S Aide Relationship Specialty Start Date End Date Clifton Hung MD [address] [place] [address] PCP - General Family Medicine 01/16/16 Renata Barnhart MD [address] [place] [address] Physician Radiation Oncology 04/25/21 Francine Madrid APRN.TOOL MACHINE SETUP OPERATOR [address] [place] [address] Aligner Typewriter Family Medicine 10/14/24 Cherise Sifuentes PA-C [address] [place] [address] Aligner Typewriter Family Medicine 10/14/24 Civil Engineer'S Aide Relationship Specialty Start Date End Date Clifton Hung MD [address] [place] [address] PCP - General Family Medicine 01/16/16 Renata Barnhart MD [address] [place] [address] Physician Radiation Oncology 04/25/21 Francine Madrid APRN.TOOL MACHINE SETUP OPERATOR [address] [place] [address] Aligner Typewriter Family Medicine 10/14/24 Cherise Sifuentes PA-C [address] [place] [address] Aligner Typewriter Family Medicine 10/14/24 Civil Engineer'S Aide Relationship Specialty Start Date End Date Clifton Hung MD [address] [facility] [place] [address] PCP - General Family Medicine 01/16/16 Renata Barnhart MD [address] [place] [address] Physician Radiation Oncology 04/25/21 Cherise Sifuentes PA-C [address] [place] [address] Aligner Typewriter Family Medicine 10/14/24 Civil Engineer'S Aide Relationship Specialty Start Date End Date Clifton Hung MD [address] [place] [address] PCP - General Family Medicine 01/16/16 Reanta Barnhart MD [address] [place] [address] Physician Radiation Oncology 04/25/21 Francine Madrid APRN.CNP [address] [place] [address] Aligner Typewriter Family Medicine 04/09/25 Cherise Sifuentes PA-C [address] [facility] [place] [address] Aligner Typewriter Family Medicine 04/09/25 Civil Engineer'S Aide Relationship Specialty Start Date End Date Clifton Hung MD [address] [place] [address] PCP - General Family Medicine 01/16/16 Renata Barnhart MD [address] [place] [address] Physician Radiation Oncology 04/25/21 Francine Madrid APRN.TOOL MACHINE SETUP OPERATOR [address] [facility] [place] [address] Aligner Typewriter Family Medicine 04/09/25 Cherise Sifuentes PA-C [address] [facility] [place] [address] Aligner Typewriter Family Medicine 04/09/25 Civil Engineer'S Aide Relationship Specialty Start Date End Date Clifton Hung MD [address] [place] [address] PCP - General Family Medicine 01/16/16 Renata Barnhart MD [address] [facility] [place] [address] Physician Radiation Oncology 04/25/21 Francine Madrid APRN.TOOL MACHINE SETUP OPERATOR [address] [facility] [place] [address] Aligner Typewriter Family Medicine 04/09/25 Cherise Sifuentes PA-C [address] [facility] [place] [address] Aligner Typewriter Family Medicine 04/09/25 Civil Engineer'S Aide Relationship Specialty Start Date End Date Clifton Hung MD [address] [facility] [place] [address] PCP - General Family Medicine 01/16/16 Renata Barnhart MD [address] [place] [address] Physician Radiation Oncology 04/25/21 Francine Madrid APRN.TOOL MACHINE SETUP OPERATOR [address] [facility] [place] [address] [facility] 04/09/25 Cherise Sifuentes PA-C [address] [facility] [place] [address] [facility]ly [facility] 04/09/25 Civil Engineer'S Aide Relationship Specialty Start Date End Date Clifton Hung MD [address] [facility] [place] [address] PCP - General Family Medicine 01/16/16 Renata Barnhart MD [address] [facility] [place] [address] Physician Radiation Oncology 04/25/21 Francine Madrid APRN.TOOL MACHINE SETUP OPERATOR [address] [facility] [place] [address] [facility] Medicine 04/09/25 Cherise Sifuentes PA-C [address] [facility] [place] [address] [facility] 04/09/25 Civil Engineer'S Aide Relationship Specialty Start Date End Date Clifton Hung MD [address] [facility] [place] [address] PCP - General Family Medicine 01/16/16 Renata Barnhart MD [address] [facility] [place] [address] Physician Radiation Oncology 04/25/21 Francine Madrid APRN.TOOL MACHINE SETUP OPERATOR [address] [place] [address] Aligner Typewriter Family Medicine 04/09/25 Cherise Sifuentes PA-C [address] [place] [address] Aligner Typewriter Family Medicine 04/09/25 Civil Engineer'S Aide Relationship Specialty Start Date End Date Clifton Hung MD [address] [place] [address] PCP - General Family Medicine 01/16/16 Renata Barnhart MD [address] [place] [address] Physician Radiation Oncology 04/25/21 Francine Madrid APRN.TOOL MACHINE SETUP OPERATOR [address] [place] [address] Aligner Typewriter Family Medicine 10/14/24 03/25/25 Cherise Sifuentes PA-C [address] [place] [address] Aligner Typewriter Family Medicine 10/14/24 04/08/25 Francine Madrid APRN.TOOL MACHINE SETUP OPERATOR [address] [place] [address] Aligner Typewriter Family Medicine 04/09/25 Cherise Sifuentes PA-C [address] [place] [address] Aligner Typewriter Family Medicine 04/09/25 Civil Engineer'S Aide Relationship Specialty Start Date End Date Clifton Hung MD [address] [place] [address] PCP - General Family Medicine 01/16/16 Renata Barnhart MD [address] [place] [address] Physician Radiation Oncology 04/25/21 Francine Madrid APRN.CNP [address] [place] [address] [facility] 04/09/25 Cherise Sifuentes PA-C [address] [place] [address] [facility]ly [facility] 04/09/25 Goals (unrecognized section and content) [...] content) DATE CREATED AUTHOR 01/24/2023 Brijesh Kaplan [facility] DATE CREATED AUTHOR AUTHOR'S ORGANIZ ATION 10/25/2024 [facility] DATE CREATED AUTHOR AUTHOR'S ORGANIZ ATION 02/19/2025 [facility] DATE CREATED AUTHOR AUTHOR'S ORGANIZ ATION 05/18/2025 [facility] FOR RECORDS PERTAINING TO PATIENTS WHO ARE [...] BE BASED ON THE PRIMARY CLINICAL RECORDS. [employer] [facility] provides no warranty or guarantee of the accuracy or completeness of information in this document.
--- OUTSIDE RECORDS SUMMARY | 2025-05-20 04:15 | XMS RPT_ITS | CCD ---
Author Organization [facility] ion [facility] Care Team Providers Care Assistant Federal Public Defender Name Role Phone Moni Garcia Unavailable Unavailable Roof CAN REPAIRER, Octaviano Viera Unavailable Moni Garcia Unavailable Unavailable Manda Peck Unavailable Unavailable Yee Mei Unavailable Jennifer RN, Nancy Callahan Unavailable Moni Garcia Unavailable Unavailable Jennifer RN, Nancy Callahan Unavailable Jennifer RN, Nancy Callahan Unavailable AGNES Paige, Blanca Myles Unavailable UnavailClifton Goetz MD Primary Care Provider Obey MONK MD, Daesung Unavailable Dr. Clifton Hung Primary Care Provider Dr. Clifton Hung Referring Provider Roof CAN REPAIRER, CAN REPAIRER-Marleny Viera Attending Provider Clifton Hung MD Primary Care Provider Obey MONK MD, Daesung Unavailable Dr. Ron Gomez Attending Provider Roof CAN REPAIRER, CAN REPAIRER-Marleny Viera Referring Provider Roof CAN REPAIRER, CAN REPAIRER-C Octaviano Viera Other Provider Clifton Hung MD Primary Care Provider Clifton Hung MD Primary Care Provider Obey MONK MD, Dasantosung Unavailable Dr. Clifton Hung Primary Care Provider Dr. Clifton Hung Referring Provider Roof CAN REPAIRER, CAN REPAIRER-C Octaviano Viera Attending Provider Sanket CAN REPAIRER, CAN REPAIRER-C Karin Myles Attending Provider [phone] Dr. Carson Alcantar Attending Provider [phone] Dr. Carson Alcantar Other Provider [phone] Admitting Unavailable TEO HUTCHINS DR Attending Unavailable TEO HUTCHINS DR Primary Care Unavailable CLIFTON HUNG MD Consulting Unavailable PROVIDER, UNKNOWN Consulting Unavailable Dr. Clifton Hung Primary Care Provider Dr. Clifton Hung Referring Provider Sanket CAN REPAIRER, CAN REPAIRER-C Karin Myles Attending Provider [phone] Dr. Carson Alcantar Attending Provider [phone] Dr. Carson Alcantar Other Provider [phone] Dr. Clifton Hung Primary Care Provider Dr. Clifton Hung Referring Provider Roof CAN REPAIRER, CAN REPAIRER-C Octaviano Viera Attending Provider Sanket CAN REPAIRER, CAN REPAIRER-Marleny Myles Attending Provider [phone] Dr. Clifton Hung Primary Care Provider Dr. Clifton Hung Referring Provider Roof CAN REPAIRER, CAN REPAIRER-C Octaviano H Attending Provider Roof CAN REPAIRER, CAN REPAIRER-C Octaviano H Referring Provider Roof CAN REPAIRER, CAN REPAIRER-C Octaviano H Other Provider Dr. Karsten Zarate Attending Provider Dr. Clifton Hung Primary Care Provider Dr. Clifton Hung Referring Provider Roof CAN REPAIRER, CAN REPAIRER-C Octaviano H Attending Provider Dr. Karsten Zarate Attending Provider Roof CAN REPAIRER, CAN REPAIRER-C Octaviano H Referring Provider Dr. Carson Alcantar [...] Referring Unavailable Dick, Clifton Referring Unavailable Elliot, [place] Attending Unavailable Dick, Clifton Primary Care Unavailable [...] DICK, CLIFTON A Primary Care Unavailable [place] POWER LINEWORKER.ADDRESSOGRAPH OPERATOR, Francine Unavailable Bear MENDOZA, Cherise Unavailable [place] POWER LINEWORKER.ADDRESSOGRAPH OPERATOR, Francine Unavailable Bear MENDOZA, Cherise Unavailable [...] [CEPHALEXIN] drug allergy 6 Other: See Comments [facility] Work Phone: (20 sources) Acetaminophen / HYDROcodone; Translations: [HYDROCODONE-ACET AMINOPHEN] Drug Allergy 6 Itching [facility] Work Phone: (20 sources) atorvastatin; Translations: [ATORVASTATIN] Drug Allergy 3 Other: See Comments [facility] Work Phone: (20 sources) Lovastatin; Translations: [LOVASTATIN] Drug Allergy 3 Other: See Comments [facility] Work Phone: (20 sources) rosuvastatin; Translations: [ROSUVASTATIN] Drug Allergy 0 Myalgia [facility] Work Phone: (20 sources) Ticagrelor; Translations: [TICAGRELOR] Drug Allergy 7 Shortness of Breath [facility] Work Phone: (13 sources) Cephalexin; Translations: [cephalexin monohydrate] Drug Allergy 2 Other [facility] (12 sources) HYDROcodone Drug Allergy 2 Hives [facility] (12 sources) Pravastatin Drug Allergy 2 myalgias [facility] (1 source) Codeine Drug Allergy [facility] (1 source) atorvastatin Drug Allergy 4 [facility] Rep[facility] (1 source) HYDROcodone Drug Allergy 4 [facility] Repository (1 source) Lovastatin Drug Allergy 4 [facility] (1 source) Pravastatin Drug Allergy 4 [facility] (1 source) rosuvastatin Drug Allergy 4 [facility] Repository (1 source) Ticagrelor Drug Allergy 4 [facility] Repository Medications Current Medications Medication Drug [...] th twice daily for 10 days. amylase [id number] unt / lipase 87627 unt / protease [id number] unt delayed release oral capsule (20 sources) Start: 03-04-2023 take 2-3 capsules by mouth at bedtime veyafa-owocplne-heu lase (CREON 36) 36,000-114,000- 180,000 unit delayed release capsule Take 2-3 capsules by mouth with meals and at bedtime. 03/04/2023 Active Start: 03-04-2023 lipase-proteas e-amylase (CREON 36) 36,000-114,000- 180,000 unit delayed release capsule .COMPLEX 03/04/2023 Active Start: 12-10-2022 End: 04-01-2023 kcqphr-jnjnmgnv-ndhwckr (CRE ON 36) 36,000-114,000- 180,000 unit delayed release capsule .COMPLEX 0 03/04/2023 Active Start: 12-10-2022 End: 04-25-2024 take [id number] capsules by mouth three times daily at mealtime Fjukbk-Cqbvaiox-Uubqssz (Creon) 12,000-38,000 -60,000 unit capsule,delayed release(DR/EC) Discontinued [...] Comment on above: Take 1 capsule by [facility] once daily. clobetasol propionate 0.0005 mg/mg [...] once daily. Take 1 capsule by mo [facility] once daily. iv contrast (will be provided [...] 1000 MG TABS every night METFORMIN HCL [id number] Nancy Myers PA-C Start: 01-05-2017 take 1 tablet by le th twice daily METFORMIN HCL 500 MG TABS One tablet by mouth twice daily METFORMIN HCL [id number] Ron Gomez MD Start: 09-23-2016 End: 10-22-2017 [...] once daily METOPROLOL SUCCINATE ER 50 MG [id number] One tablet by mouth daily METOPROLOL SUCCINATE [id number] Nancy Myers PA-C Start: 01-05-2017 take 0.5 tablet by m out twice daily METOPROLOL TARTRATE 50 MG TABS 1/2 tablet by mouth twice daily METOPROLOL TARTRATE [id number] Ron Gomez MD Start: 09-23-2016 End: 10-22-2017 [...] Comment on above: Take 1 capsule by [facility] twice daily for 7 days. nitroglycerin [...] on above: Take 1 capsule by mo [facility] once daily. OTC NUTRITIONAL SUPPLEMENT (20 sources) [...] Comment on above: [facility] tamoxifen 20 mg oral [...] Comment on above: [facility] for 5 days. Completed/Discontinued [...] Start: 04-23-2017 take 4 tablets by mo [facility] once daily, then take 1 tablet by mouth, then take 1 tablet by mouth once daily PLAVIX 75 MG TABS Four tablets by mouth on day 1 then One tablet by mouth daily CLOPIDOGREL BISULFATE [id number] Ron Gomez MD cyclobenzaprine hydrochloride 10 mg [...] le once daily CARDIZEM CD 120 MG [id number] One tablet by mouth daily (on HOLD) DILTIAZEM HCL [place] [id number] Ron Gomez MD Start: 01-05-2017 take 1 tablet by le once daily CARDIZEM CD 180 MG [id number] One tablet by mouth daily DILTIAZEM HCL [place]ATED [place] [id number] Nancy Myers PA-C Start: 09-23-2016 End: 06-30-2017 [...] TRULICITY 1.5 MG/0.5ML SOPN as directed DULAGLUTIDE [id number] Nancy Myers PA-C Start: 01-05-2017 TRULICITY 1.5 MG/0.5ML SOPN as directed DULAGLUTIDE [id number] Nancy Myers PA-C dulaglutide (TRULICITY) 3 mg/0.5 [...] by mouth daily OMEGA-3 FATTY ACIDS CAPS [id number] Nancy Myers PA-C Start: 01-05-2017 take 1 tablet by le th once daily FISH OIL CAPS One tablet by mouth daily OMEGA-3 FATTY ACIDS CAPS [id number] Nancy Myers PA-C fluconazole 150 mg oral [...] 37.5-25 MG CAPS One tablet by mo [facility] daily TRIAMTERENE-HCTZ [id number] Nancy Rodriguez RN levoFLOXacin 500 mg oral [...] 7 LORAZEPAM 1 MG TABS needed LORAZEPAM [id number] Octaviano Humphries CAN REPAIRER magnesium sulfate 100 mg oral capsule (20 [...] TABLET PO DAILY May 28, 2022 12:00am [place]-3 Fatty Acids (20 sources) Start: 11-24-2021 End: 05-28-2022 take 500 mg by mouth at bedtime [place]-3 Fatty Acids Discontinued 500 MG PO AT BEDTIME November 24, 2021 2:43pm May 28, 2022 1:28pm Start: 11-24-2021 End: 05-28-2022 take 500 mg by mouth at bedtime [place]-3 Fatty Acids Di scontinued 500 MG PO AT BEDTIME November 24, 2021 3:43pm May 28, 2022 2:28pm Start: 01-01-2017 End: 11-24-2021 take 500 mg by mouth at bedtime [place]-3 Fatty Acids Di scontinued 500 MG PO AT BEDTIME January 01, 2017 12:00am November 24, 2021 2:44pm Start: 01-01-2017 End: 11-24-2021 take 500 mg by mouth at bedtime [place]-3 Fatty Acids Di scontinued 500 MG PO [...] Comment on above: Take 1 tablet by el th once daily for 5 days. PROBIOTIC PRODUCT (6 sources) Start: 01-05-2017 take 1 tablet by mouth once daily PROBIOTIC DAILY CAPS One tablet by mouth daily PROBIOTIC PRODUCT [id number] Nancy Myers PA-C PROBIOTIC PRODUCT (5 sources) Start: 01-05-2017 take 1 tablet by mouth once daily PROBIOTIC DAILY CAPS One tablet by mouth daily PROBIOTIC PRODUCT [id number] Nancy Myers PA-C Start: 01-05-2017 take 1 tablet by le th once daily PROBIOTIC DAILY CAPS One tablet by mouth daily PROBIOTIC PRODUCT [id number] Nancy Myers PA-C rosuvastatin calcium 10 mg [...] daily (complete current supply then STOP) TICAGRELOR [id number] Octaviano Maximiliano Yandel CAN REPAIRER Start: 01-05-2017 take 1 tablet by le th twice daily BRILINTA 60 MG TABS One tablet by mouth twice daily TICAGRELOR [id number] Nancy Myers PA-C vitamin b6 100 mg [...] disease (20 sources) Atherosclerotic heart disease of kaib[place] coronary artery without angina pectoris; Translations: [Coronary [...] sources) Long-term current use of tamoxifen; Translations: [intermediate school teacher (current) use of selective estrogen receptor modulators (SERMs)] Episodic Other aftercare (1 source) intermediate school teacher (current) use of selective estrogen receptor modulators [...] (5 sources) Long-term drug therapy; Translations: [Other penitentiary (current) drug therapy] Onset: 7 01-20-2017 Unclassified [...] 07-04-2024 Episodic Other aftercare (7 sources) Other terminal computer operator (current) drug therapy; Translations: [Other penitentiary (current) drug therapy] Onset: 01-20-2017 01-20-2017 Episodic [...] , Intermediate >32 , Resistant >64 Abnormal [facility] Comment on above: Performed By: #### 6 30-4 ####[facility] LABCLIA [id number] [address] OF [facility] CNOVon 04-24-2025 CNOV Office Visit (FAMPWS ) AUSTINDOM Vel ([id number]) 1955 F Date Time Provider Department 04/24/25 8:00 AM FRANCINE MADRID During your visit today, we recorded the following information about you: Pulse Blood pressure Weight 68/minute 138/76 63 kg Francine Madrid, POWER LINEWORKER.ADDRESSOGRAPH OPERATOR 04/24/2025 8:07 AM Signed Chief Complaint [...] disturbance 06/2017 Arthritis tendonitis, arthritis 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 Has been on provigil for 5-10 yrs Obstructive sleep apnea on CPAP Sibilia Other skin changes 09/26/2021 Seeing derm Pancreatic insufficiency ([facility]) 04/08/[address] Alcantar Psoriasis RLS (restless legs syndrome) 02/22/[address] Aysha Laurent with ocular symptoms S/P angioplasty with stent 01/09/2017 stents to mid and proximal left anterior descending Art, and angio of ostium of #2 diagonal Scalp itch Seasonal allergies Dr Pompa Type 2 diabetes mellitus with hyperlipidemia ([facility]) 04/17/2024 Uterine fibroid 1994? Hysterectomy at age 41 Uterine polyp No longer an issue Vitamin D deficiency 2012 Well adult exam 01/16/2016 Last done: 09/08/2018 Previous Surgical History PAST SURGICAL HISTORY Procedure Laterality Date 2D ECHO (EXEP) 06/30/2017 EF=65%, trivial IN, TI and 1+ PI Unchanged from 04/2017 2D ECHO (EXEP) 05/14/2021 EF=60%, 1+ TI, trival IN, AI, PI 2D ECHO (EXEP) 09/16/2021 EF=60%, [...] Artery Dise (more content not included)... Normal [facility] UA DIP, URINE (POC)on 2024 BILIRUBIN UA (POCT) Small Abnormal Negative [facility] CLARITY UA (POCT) Clear [facility] COLOR UA (POCT) Yellow [facility] GLUCOSE UA (POCT) Negative Negative mg/dL [facility] Hemoglobin Ql (U) Large Abnormal Negative [facility] Interpretation and review of laboratory results Abnormal [facility] KETONE UA (POCT) Trace Negative mg/dL [facility] LEUKOCYTES UA (POCT) Small Abnormal Negative [facility] NITRITE UA (POCT) Negative Negative [facility] PH UA (POCT) 5.5 4.5 - 8.0 [facility] Protein Ql (U) >=300 Abnormal Negative mg/dL [facility] SPECIFIC GRAVITY UA (POCT) >=1.030 1.005 - 1.030 [facility] UROBILINOGEN UA (POCT) 0.2 Normal E.U./d L [facility] Location:[facility], [address] [place] [address], [place], [place], [id number] [place] [address] POINT OF CARE [facility] CNOVon 04-19-2025 CNOV Office Visit (FAMPWS ) DOM AVILA ([id number]) 1955 F Date Time Provider Department 04/19/25 9:00 AM [facility] During your visit today, we recorded [...] disturbance 06/2017 Arthritis tendonitis, arthritis 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 Normal [facility] CNOVon 04-09-2025 CNOV Office Visit (OBGYWM ) AUSTINDOM Vel ([id number]) 1955 F Date Time Provider Department 04/09/25 9:30 AM SIMA DUMONT OBDORIAN During your visit today, we recorded the following information about you: Blood pressure Weight Height 156/90 64.9 kg 1.59 m Sima Dumont APRN.CNP 04/09/2025 9:59 AM Signed Sanding Machine Tender offered: Patient declines. Dom is a 69 year old who presents for an annual gynecologic exam without complaints. Nodule on adrenal gland - seeing coin machine assembler. 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 Has been on provigil for 5-10 yrs Obstructive sleep apnea on CPAP Sibilia Other skin changes 09/26/2021 Seeing yosef Pancreatic insufficiency ([facility]) 04/08/[address] Alcantar Psoriasis RLS (restless legs syndrome) 02/22/[address] Aysha Laurent with ocular symptoms S/P angioplasty with stent 01/09/2017 stents to mid and proximal left anterior descending Art, and angio of ostium of #2 diagonal Scalp itch Seasonal allergies Dr Pompa Type 2 diabetes mellitus with hyperlipidemia ([facility]) 04/17/2024 Uterine fibroid 1994? Hysterectomy at age 41 Uterine polyp No longer an issue Vitamin D deficiency 2012 Well adult exam 01/16/2016 Last done: 09/08/2018 PAST SURGICAL HISTORY Procedure Laterality Date 2D ECHO (EXEP) 06/30/2017 EF=65%, trivial IN, TI and 1+ PI Unchanged from 04/2017 2D ECHO (EXEP) 05/14/2021 EF=60%, 1+ TI, trival IN, AI, PI 2D ECHO (EXEP) 09/16/2021 EF=60%, [...] SURGICAL H (more content not included)... Normal [facility] 25(OH)D3 SerPl-ncon 2024 25-hydroxyvitamin D3 [Mass/Vol] 29.6 ng/mL Low 31.0-80.0 [facility] Comment on above: Order Comment: Speci men Type: BLOOD SPECIMENOrdering Facility: [facility] Address: [address] [place] [address] Performed By: #### 1 989-3 ####[facility] LABIA [id number] [place] [address] [place] ALBUMIN/CREATININE RATIO, UR INEon 04-06-2025 Albumin DL <= 20 mg/L (U) [Mass/Vol] mg/dL Normal [facility] Comment on above: Order Comment: Speci men Type: URINE SPECIMENOrdering Facility: [facility] Address: [address] [place] [address] Performed By: #### U ACR ####[facility] [id number] [place] [address] [place] Albumin/Creatinine (U) [Mass ratio] <15 Normal <30 [facility] Comment on above: Order Comment: Speci men Type: URINE SPECIMENOrdering Facility: [facility] Address: [address] [place] [address] Result Comment: Adul t Male and Female Nephrotic Criteria: <30 mg/g is considered normal to mildly increased 30-300 mg/g is considered moderately increased >300 mg/g is considered severely increased KDIGO. (2013). KDIGO 2012 Clinical Practice Guideline for the Evaluation and Management of Chronic Kidney Disease. Official Journal of the International Society of Nephrology, 3(1), 1-150. Performed By: #### U ACR ####[facility] LABIA [id number] [place] [id number] [place] Creatinine (U) [Mass/Vol] 81.5 mg/dL Normal 20.0-300.0 [facility] Comment on above: Order Comment: Speci men Type: URINE SPECIMENOrdering Facility: [facility] Address: [address] [place] [address] Performed By: #### U ACR ####[facility] LABCLIA [id number] [place] [address] [place] CBC W Auto Differential pane l (Bld)on 04-06-2025 Basophils (Bld) [#/Vol] 0.03 10*3/uL Normal <0.11 [facility] Comment on above: Order Comment: Speci men Type: BLOOD SPECIMENOrdering Facility: [facility] Address: [address] [place] [address] Performed By: #### 5 7021-8 ####[facility] [id number] [place] [address] [place] Basophils/100 WBC (Bld) 0.3 % Normal [facility] Comment on above: Order Comment: Speci men Type: BLOOD SPECIMENOrdering Facility: [facility] Address: [address] [place] [address] Performed By: #### 5 7021-8 ####[facility] [id number] [place] [address] [place] Differential cell count method Nom (Bld) Auto Normal [facility] Comment on above: Order Comment: Speci men Type: BLOOD SPECIMENOrdering Facility: [facility] Address: [address] [place] [address] Performed By: #### 5 7021-8 ####[facility] [id number] [place] [address] [place] Eosinophils (Bld) [#/Vol] 0.12 10*3/uL Normal <0.46 [facility] Comment on above: Order Comment: Speci men Type: BLOOD SPECIMENOrdering Facility: [facility] Address: [address] [place] [address] Performed By: #### 5 7021-8 ####[facility]ITALNADIALIA [id number] [place] [address] [place] Eosinophils/100 WBC (Bld) 1.4 % Normal [facility] Comment on above: Order Comment: Speci men Type: BLOOD SPECIMENOrdering Facility: [facility] Address: [address] [place] [address] Performed By: #### 5 7021-8 ####[facility]ILLIA[facility] [id number] [place] [address] [place] Erythrocyte distribution width (RBC) [Ratio] 13.8 % Normal 11.5-15.0 [facility] Comment on above: Order Comment: Speci men Type: BLOOD SPECIMENOrdering Facility: [facility] Address: [address] [place] [address] Performed By: #### 5 7021-8 ####[facility] [id number] [place] [address] [place] Hematocrit (Bld) [Volume fraction] 37.9 % Normal 36.0-46.0 [facility] Comment on above: Order Comment: Speci men Type: BLOOD SPECIMENOrdering Facility: [facility] Address: [address] [place] [address] Performed By: #### 5 7021-8 ####[facility] [id number] [place] [address] [place] Hemoglobin (Bld) [Mass/Vol] 12.4 g/dL Normal 11.5-15.5 [facility] Comment on above: Order Comment: Speci men Type: BLOOD SPECIMENOrdering Facility: [facility] Address: [address] [place] [address] Performed By: #### 5 7021-8 ####[facility] [id number] [place] [address] [place] Immature granulocytes (Bld) [#/Vol] 0.03 10*3/uL Normal <0.10 [facility] Comment on above: Order Comment: Speci men Type: BLOOD SPECIMENOrdering Facility: [facility] Address: [address] [place] [address] Performed By: #### 5 7021-8 ####[facility] [id number] [place] [address] [place] Immature granulocytes/100 WBC (Bld) 0.3 % Normal [facility] Comment on above: Order Comment: Speci men Type: BLOOD SPECIMENOrdering Facility: [facility] Address: [address] [place] [address] Performed By: #### 5 7021-8 ####[facility] [id number] [place] [address] [place] Lymphocytes (Bld) [#/Vol] 2.26 10*3/uL Normal 1.00-4.00 [facility] Comment on above: Order Comment: Speci men Type: BLOOD SPECIMENOrdering Facility: [facility] Address: [address] [place] [address] Performed By: #### 5 7021-8 ####[facility] [id number] [place] [address] [place] Lymphocytes/100 WBC (Bld) 26.3 % Normal [facility] Comment on above: Order Comment: Speci men Type: BLOOD SPECIMENOrdering Facility: [facility] Address: [address] [place] [address] Performed By: #### 5 7021-8 ####[facility] [id number] [place] [address] [place] MCH (RBC) [Entitic mass] 30.4 pg Normal 26.0-34.0 [facility] Comment on above: Order Comment: Speci men Type: BLOOD SPECIMENOrdering Facility: [facility] Address: [address] [place] [address] Performed By: #### 5 7021-8 ####[facility] LETYWNCLIA [id number] [place] [address] [place] MCHC (RBC) [Mass/Vol] 32.7 g/dL Normal 30.5-36.0 [facility] Comment on above: Order Comment: Speci men Type: BLOOD SPECIMENOrdering Facility: [facility] Address: [address] [place] [address] Performed By: #### 5 7021-8 ####[facility]ITALNCYADIRAA [id number] [place] [address] [place] MCV (RBC) [Entitic vol] 92.9 fL Normal 80.0-100.0 [facility] Comment on above: Order Comment: Speci men Type: BLOOD SPECIMENOrdering Facility: [facility] Address: [address] [place] [address] Performed By: #### 5 7021-8 ####[facility]IT[facility] [id number] [place] [address] [place] Monocytes (Bld) [#/Vol] 0.73 10*3/uL Normal <0.87 [facility] Comment on above: Order Comment: Speci men Type: BLOOD SPECIMENOrdering Facility: [facility] Address: [address] [place] [address] Performed By: #### 5 7021-8 ####[facility]ITAL[facility]CLIA [id number] [place] [address] [place] Monocytes/100 WBC (Bld) 8.5 % Normal [facility] Comment on above: Order Comment: Speci men Type: BLOOD SPECIMENOrdering Facility: [facility] Address: [address] [place] [address] Performed By: #### 5 7021-8 ####[facility]OSPITALLIA [id number] [place] [address] [place] Neutrophils (Bld) [#/Vol] 5.41 10*3/uL Normal 1.45-7.50 [facility] Comment on above: Order Comment: Speci men Type: BLOOD SPECIMENOrdering Facility: [facility] Address: [address] [place] [address] Performed By: #### 5 7021-8 ####[facility] [id number] [place] [address] [place] Neutrophils/100 WBC (Bld) 63.2 % Normal [facility] Comment on above: Order Comment: Speci men Type: BLOOD SPECIMENOrdering Facility: [facility] Address: [address] [place] [address] Performed By: #### 5 7021-8 ####[facility] [id number] [place] [address] [place] Nucleated RBC (Bld) [#/Vol] 10*3/uL Normal <0.01 [facility] Comment on above: Order Comment: Speci men Type: BLOOD SPECIMENOrdering Facility: [facility] Address: [address] [place] [address] Performed By: #### 5 7021-8 ####[facility] [id number] [place] [address] [place] Nucleated RBC/100 WBC (Bld) [Ratio] 0.0 /100 WBC Normal [facility] Comment on above: Order Comment: Speci men Type: BLOOD SPECIMENOrdering Facility: [facility] Address: [address] [place] [address] Performed By: #### 5 7021-8 ####[facility]ITALNCLI [id number] [place] [address] [place] Platelet mean volume (Bld) [Entitic vol] 9.6 fL Normal 9.0-12.7 [facility] Comment on above: Order Comment: Speci men Type: BLOOD SPECIMENOrdering Facility: [facility] Address: [address] [place] [address] Performed By: #### 5 7021-8 ####[facility]ITALNCLIA [id number] [place] [address] [place] Platelets (Bld) [#/Vol] 178 10*3/uL Normal 150-400 [facility] Comment on above: Order Comment: Speci men Type: BLOOD SPECIMENOrdering Facility: [facility] Address: [address] [place] [address] Performed By: #### 5 7021-8 ####[facility]ITALNCGAR[facility] [id number] [place] [address] [place] RBC (Bld) [#/Vol] 4.08 10*6/uL Normal 3.90-5.20 [facility] Comment on above: Order Comment: Speci men Type: BLOOD SPECIMENOrdering Facility: [facility] Address: [address] [place] [address] Performed By: #### 5 7021-8 ####[facility]OSPITALNCA [id number] [place] [address] [place] WBC (Bld) [#/Vol] 8.58 10*3/uL Normal 3.70-11.00 [facility] Comment on above: Order Comment: Speci men Type: BLOOD SPECIMENOrdering Facility: [facility] Address: [address] [place] [address] Performed By: #### 5 7021-8 ####[facility]ITALNCLIA [id number] [place] [address] [place] Comprehensive metabolic 2000 panelon 04-06-2025 Albumin [Mass/Vol] 3.7 g/dL Low 3.9-4.9 [facility] Comment on above: Order Comment: Speci men Type: BLOOD SPECIMENOrdering Facility: [facility] Address: [address] [place] [address] Performed By: #### 1 9123-9, 61106-8 ####[facility] MILLTOWNCLIA [id number] [place] [address] [place] ALP [Catalytic activity/Vol] 49 U/L Normal 34-123 [facility] Comment on above: Order Comment: Speci men Type: BLOOD SPECIMENOrdering Facility: [facility] Address: [address] [place] [address] Performed By: #### 1 9123-9, 92319-7 ####[facility] MILLTOWNCLIA [id number] [place] [address] [place] ALT [Catalytic activity/Vol] 11 U/L Normal 7-38 [facility] Comment on above: Order Comment: Speci men Type: BLOOD SPECIMENOrdering Facility: [facility] Address: [address] [place] [address] Performed By: #### 1 9123-9, 31391-7 ####[facility]ENTERWNCLIA [id number] [place] [address] [place] Anion gap [Moles/Vol] 11 mmol/L Normal 8-15 [facility] Comment on above: Order Comment: Speci men Type: BLOOD SPECIMENOrdering Facility: [facility] Address: [address] [place] [address] Performed By: #### 1 9123-9, 19403-7 ####[facility] CENTERWNCLIA [id number] [place] [address] [place] AST [Catalytic activity/Vol] 17 U/L Normal 13-35 [facility] Comment on above: Order Comment: Speci men Type: BLOOD SPECIMENOrdering Facility: [facility] Address: [address] [place] [address] Performed By: #### 1 9123-9, 70281-8 ####[facility] MILLTOWNCLIA [id number] [place] [address] [place] Bilirubin [Mass/Vol] 0.3 mg/dL Normal 0.2-1.3 [facility] Comment on above: Order Comment: Speci men Type: BLOOD SPECIMENOrdering Facility: [facility] Address: [address] [place] [address] Performed By: #### 1 9123-9, 16168-7 ####[facility] MILLTOWNCLIA [id number] [place] [address] [place] Calcium [Mass/Vol] 9.0 mg/dL Normal 8.5-10.2 [facility] Comment on above: Order Comment: Speci men Type: BLOOD SPECIMENOrdering Facility: [facility] Address: [address] [place] [address] Performed By: #### 1 9123-9, 31982-6 ####[facility] CENTERWNCLIA [id number] [place] [address] [place] Chloride [Moles/Vol] 104 mmol/L Normal 98-107 [facility] Comment on above: Order Comment: Speci men Type: BLOOD SPECIMENOrdering Facility: [facility] Address: [address] [place], [place] [id number] Performed By: #### 1 9123-9, ####[facility] MILLTOWNCLIA [id number] [place] [address] [place] CO2 [Moles/Vol] 26 mmol/L Normal 22-30 [facility] Comment on above: Order Comment: Speci men Type: BLOOD SPECIMENOrdering Facility: [facility] Address: [address] [place] [address] Performed By: #### 1 9123-9, 60961-1 ####[facility]ITALNCLIA [id number] [place] [address] [place] Creatinine [Mass/Vol] 0.79 mg/dL Normal 0.58-0.96 [facility] Comment on above: Order Comment: Taran acevedo Type: BLOOD SPECIMENOrdering Facility: [facility] Address: [address] [place] [address] Performed By: #### 1 9123-9, 24881-1 ####[facility] [id number] [place] [address] [place] Creatinine and Glomerular filtration rate.predicted panel (S/P/Bld) 82 mL/min/1.73m??? Normal >=60 [facility] Comment on above: Order Comment: Taran acveedo Type: BLOOD SPECIMENOrdering Facility: [facility] Address: [address] [place] [address] Result Comment: Richa mated Glomerular Filtration Rate [...] actual GFR. Performed By: #### 1 9123-9, 12536-6 ####[facility]PITALLIA [id number] [place] [address] [place] Glucose [Mass/Vol] 115 mg/dL High 74-99 [facility] Comment on above: Order Comment: Spectina men Type: BLOOD SPECIMENOrdering Facility: [facility] Address: [address] [id number] Result Comment: The [place] Diabetes Association (ADA) provides guidance for cutoff [...] Standards of Medical Care in Diabetes 2016, [place] Diabetes Association. Diabetes Care. 2016.39(Suppl 1). Performed By: #### 1 9123-9, ####[facility] MILLTOWGREYSONLIA [id number] [place] [address] [place] Potassium [Moles/Vol] 4.0 mmol/L Normal 3.7-5.1 [facility] Comment on above: Order Comment: Speci men Type: BLOOD SPECIMENOrdering Facility: [facility] Address: [address] [place] [address] Performed By: #### 1 91239, ####[facility] CENTERWGREYSONLIArt [id number] [place] [address] [place] Protein [Mass/Vol] 6.6 g/dL Normal 6.3-8.0 [facility] Comment on above: Order Comment: Speci men Type: BLOOD SPECIMENOrdering Facility: [facility] Address: [address] [place] [address] Performed By: #### 1 9123-9, ####[facility] CENTERWGREYSONLIA [id number] [place] [address] [place] Sodium [Moles/Vol] 141 mmol/L Normal 136-144 [facility] Comment on above: Order Comment: Speci men Type: BLOOD SPECIMENOrdering Facility: [facility] Address: [address] [place] [address] Performed By: #### 1 9123-9, ####[facility] CENTERWGREYSONLIA [id number] [place] [address] [place] Urea nitrogen [Mass/Vol] 15 mg/dL Normal 7-21 [facility] Comment on above: Order Comment: Taran acevedo Type: BLOOD SPECIMENOrdering Facility: [facility] Address: [address] [place] [address] Performed By: #### 1 9123-9, 73029-4 ####[facility] [id number] [place] [address] [place] HbA1c (Bld)on 04-06-2025 Average glucose Estimated from glycated hemoglobin (Bld) [Mass/Vol] 160 mg/dL Normal [facility] Comment on above: Order Comment: Taran acevedo Type: BLOOD SPECIMENOrdering Facility: [facility] Address: [address] [place] [address] Result Comment: eAG: (Estimated average glucose) is a calculated value from HgbA1c and is inbound call center representative of the average blood glucose level in the last 2-3 month period. Performed By: #### 5 5454-3 ####[facility] LABCLIA [id number] [place] [address] [place] HbA1c (Bld) [Mass fraction] 7.2 % High 4.3-5.6 [facility] Comment on above: Order Comment: Taran acevedo Type: BLOOD SPECIMENOrdering Facility: [facility] Address: [address] [place] [address] Result Comment: Amer ican Diabetes Association guidelines indicate that patients with HgbA1c in the range 5.7-6.4% are at increased risk for development of diabetes, and intervention by lifestyle modification may be beneficial. HgbA1c greater or equal to 6.5% is considered diagnostic of diabetes. Performed By: #### 5 5454-3 ####[facility] LABCLIA [id number] [place] [id number] [place] LIPID PANEL, NONFASTINGon Cholesterol [Mass/Vol] 152 mg/dL Normal <200 [facility] Comment on above: Order Comment: Taran acevedo Type: BLOOD SPECIMENOrdering Facility: [facility] Address: [address] [place] [address] Result Comment: <200 mg/dL, Desirable 200-239 mg/dL, Borderline high >239 mg/dL, High Performed By: #### 2 132-9, 3016-3, LIPNF ####[facility] LABCLIA [id number] [facility] [id number] [place], [place] [id number] [place] HDL CHOLESTEROL, NF 38 mg/dL Low >39 [facility] Comment on above: Order Comment: Speci men Type: BLOOD SPECIMENOrdering Facility: [facility] Address: [address] [place] [address] Result Comment: 40-5 9 mg/dL, Acceptable >59 mg/dL, High: Negative risk factor for coronary heart disease <40 mg/dL, Low: Positive risk factor for coronary heart disease Performed By: #### 2 132-9, 3016-3, LIPNF ####[facility] LABCLIA [id number] [address] [place] LDL CHOLESTEROL CALCULATED, NF 94 mg/dL Normal <100 [facility] Comment on above: Order Comment: Speci men Type: BLOOD SPECIMENOrdering Facility: [facility] Address: [address] [place] [address] Result Comment: <100 mg/dL, Optimal 100-129 mg/dL, Near optimal/above optimal 130-159 mg/dL, Borderline high 160-189 mg/dL, High >189 mg/dL, Very high Secondary prevention optimal LDL Cholesterol levels are recommended to be <70 mg/dL LDL cholesterol is calculated using the Silverio-NIH equation. Performed By: #### 2 132-9, 3016-3, LIPNF ####[facility] LABCLIA [id number] [place] [id number] [place] LDL/HDL RATIO, NF 2.47 mg/dL Normal <2.54 [facility] Comment on above: Order Comment: Speci men Type: BLOOD SPECIMENOrdering Facility: [facility] Address: [address] [place] [address] Result Comment: Michaelle mayes: 1. National Cholesterol Education Program ATP III Guideline At-A-Glance Quick Desk Reference: National Heart, Lung, and Blood Verdi. National Institutes of Health. 2001: NIH Publication No. 01-3305. 2. An International Atherosclerosis Society position paper: global recommendations for the management of dyslipidemia: executive summary, Atherosclerosis. 2014: 232(2):410-413. Performed By: #### 2 132-9, 3016-3, LIPNF ####[facility] LABCLIA [id number] [place] [address] [place] NON HDL CHOL, NF 114 mg/dL Normal <130 [facility] Comment on above: Order Comment: Speci men Type: BLOOD SPECIMENOrdering Facility: [facility] Address: [address] [place] [address] Result Comment: <130 mg/dL, Optimal 130-159 mg/dL, Near optimal/above optimal 160-189 mg/dL, Borderline high 190-219 mg/dL, High >219 mg/dL, Very high Secondary prevention optimal non HDL Cholesterol levels are recommended to be <100 mg/dL Performed By: #### 2 132-9, 3016-3, LIPNF ####[facility] LABCLIA [id number] [place] [address] [place] T CHOL/HDL RATIO NF 4.00 mg/dL Normal <5.10 [facility] Comment on above: Order Comment: Speci men Type: BLOOD SPECIMENOrdering Facility: [facility] Address: [address] [place] [address] Performed By: #### 2 132-9, 3016-3, LIPNF ####[facility] LABCLIA [id number] [place] [id number] [place] TRIGLYCERIDES, NF 106 mg/dL Normal <150 [facility] Comment on above: Order Comment: Speci men Type: BLOOD SPECIMENOrdering Facility: [facility] Address: [address] [place] [address] Result Comment: <150 mg/dL, Normal 150-199 mg/dL, Borderline high 200-499 mg/dL, High >499 mg/dL, Very high Performed By: #### 2 132-9, 3016-3, LIPNF ####[facility] LABCLIA [id number] [place] [address] [place] VLDL CHOLESTEROL, NF 17 mg/dL Normal <30 [facility] Comment on above: Order Comment: Speci men Type: BLOOD SPECIMENOrdering Facility: [facility] Address: [address] [place] [address] Performed By: #### 2 132-9, 3016-3, LIPNF ####[facility] LABCLIA [id number] [place] [address] [place] Magnesium SerPl-mCncon 04-06 Magnesium [Mass/Vol] 1.6 mg/dL Low 1.7-2.3 [facility] Comment on above: Order Comment: Speci men Type: BLOOD SPECIMENOrdering Facility: [facility] Address: [address] [place] [address] Performed By: #### 1 9123-9, 18304-0 ####[facility] [id number] [place] [address] [place] TSH SerPl-aCncon 04-06-2025 TSH Qn 3.870 m[IU]/L Normal 0.270-4.200 [facility] Comment on above: Order Comment: Speci men Type: BLOOD SPECIMENOrdering Facility: [facility] Address: [address] [place] [address] Performed By: #### 2 132-9, 3016-3, LIPNF ####[facility] LABCLIA [id number] [place] [id number] [place] Urinalysis complete panel (U )on 04-06-2025 BACTERIA UL 1513.2 uL High Negative [facility] Comment on above: Order Comment: Speci men Type: URINE SPECIMENOrdering Facility: [facility] Address: [address] [place] [address] Performed By: #### 2 4356-8 ####[facility] LABCLIA [id number] [address], [facility]95 [place] Bilirubin Ql (U) Negative Normal Negative [facility] Comment on above: Order Comment: Speci men Type: URINE SPECIMENOrdering Facility: [facility] Address: [address] [place] [address] Performed By: #### 2 4356-8 ####[facility] LABCLIA [id number] [place] [address] [place] Clarity (Unsp spec) Clear Normal Clear [facility] Comment on above: Order Comment: Speci men Type: URINE SPECIMENOrdering Facility: [facility] Address: [address] [place] [address] Performed By: #### 2 4356-8 ####[facility] LABCLIA [id number] [place] [address] [place] Color (U) Yellow Normal Yellow [facility] Comment on above: Order Comment: Speci men Type: URINE SPECIMENOrdering Facility: [facility] Address: [address] [place] [address] Performed By: #### 2 4356-8 ####[facility] LABCLIA [id number] [place] [id number] [place] Epithelial cells LM.HPF (Urine sed) [#/Area] Moderate Normal [facility] Comment on above: Order Comment: Speci men Type: URINE SPECIMENOrdering Facility: [facility] Address: [address] [place] [address] Performed By: #### 2 4356-8 ####[facility] LABCLIA [id number] [place] [id number] [place] Glucose Test strip (U) [Mass/Vol] Negative Normal Negative [facility] Comment on above: Order Comment: Speci men Type: URINE SPECIMENOrdering Facility: [facility] Address: [address] [place] [address] Performed By: #### 2 4356-8 ####[facility] LABCLIA [id number] [place] [address] [place] Hemoglobin Ql (U) Negative Normal Negative [facility] Comment on above: Order Comment: Speci men Type: URINE SPECIMENOrdering Facility: [facility] Address: [address] [place] [address] Performed By: #### 2 4356-8 ####[facility] LABCLIA [id number] [place] [address] [place] Hyaline casts (Urine sed) [#/Area] 0 /[LPF] Normal 0 /LPF [facility] Comment on above: Order Comment: Speci men Type: URINE SPECIMENOrdering Facility: [facility] Address: [address] [place] [address] Performed By: #### 2 4356-8 ####[facility] LABCLIA [id number] [place] [address] [place] Ketones Ql (U) Negative Normal Negative [facility] Comment on above: Order Comment: Speci men Type: URINE SPECIMENOrdering Facility: [facility] Address: [address] [place] [address] Performed By: #### 2 4356-8 ####[facility] LABCLIA [id number] [place] [address] [place] Leukocyte esterase Test strip Ql (U) 3+ Abnormal Negative [facility] Comment on above: Order Comment: Speci men Type: URINE SPECIMENOrdering Facility: [facility] Address: [address] [place] [address] Performed By: #### 2 4356-8 ####[facility] LABCLIA [id number] [address], [facility]95 [place] Nitrite Ql (U) Negative Normal Negative [facility] Comment on above: Order Comment: Speci men Type: URINE SPECIMENOrdering Facility: [facility] Address: [address] [place] [address] Performed By: #### 2 4356-8 ####[facility] LABIA [id number] [address], [place] [address] [place] pH (U) 7.0 [pH] Normal <8.5 [facility] Comment on above: Order Comment: Speci men Type: URINE SPECIMENOrdering Facility: [facility] Address: [address] [place] [address] Performed By: #### 2 4356-8 ####[facility] LABIA [id number] [address], [place] [address] [place] Protein (U) [Mass/Vol] Negative Normal Negative [facility] Comment on above: Order Comment: Speci men Type: URINE SPECIMENOrdering Facility: [facility] Address: [address] [place] [address] Performed By: #### 2 4356-8 ####[facility] LABIA [id number] [address], [place] [address] [place] RBC LM.HPF (Urine sed) [#/Area] 0-2 /HPF Normal 0-2 /HPF [facility] Comment on above: Order Comment: Speci men Type: URINE SPECIMENOrdering Facility: [facility] Address: [address] [place] [address] Performed By: #### 2 4356-8 ####[facility] LABIA [id number] [place] [address] [place] Specific gravity (U) [Rel density] 1.014 Normal 1.005-1.030 [facility] Comment on above: Order Comment: Speci men Type: URINE SPECIMENOrdering Facility: [facility] Address: [address] [place] [address] Performed By: #### 2 4356-8 ####[facility] LABIA [id number] [place] [address] [place] Urobilinogen Ql (U) 0.2 EU/dL Normal 0.2-1.0 EU/dL Cl [facility] Comment on above: Order Comment: Speci men Type: URINE SPECIMENOrdering Facility: [facility] Address: [address] [place] [address] Performed By: #### 2 4356-8 ####[facility] [id number] [place] [address] [place] WBC LM.HPF (Urine sed) [#/Area] 11-20 /HPF Abnormal 0-5 /HPF [facility] Comment on above: Order Comment: Speci men Type: URINE SPECIMENOrdering Facility: [facility] Address: [address] [place] [address] Performed By: #### 2 4356-8 ####[facility] [id number] [place] [address] [place] Vit B12 SerPl-ncon 05-30-2 025 Cobalamin (Vitamin B12) [Mass/Vol] 609 pg/mL Normal 232-1245 [facility] Comment on above: Order Comment: Speci men Type: BLOOD SPECIMENOrdering Facility: [facility] Address: [address] [place] [address] Performed By: #### 2 132-9, 3016-3, LIPNF ####[facility] [id number] [place] [address] [place] CNOVSPon 03-21-2025 CNOVSP Visit (SP) Office ([facility]MA[facility]) DOM AVILA ([id number]) 1955 F Date Time Provider Department 03/21/25 8:00 AM CHAD MARIEE During your visit today, we recorded the following information about you: Temperature Pulse Blood pressure Weight 97.6 degrees 63/minute 163/88 65.2 kg Chad Mariee APRN.ADDRESSOGRAPH OPERATOR 03/22/2025 1:28 PM Signed Chief Complaint Patient presents with: Established Patient HPI: Dom Avila is a 69 year old female who presents here today for follow up DCIS. Per Dr. Georges previous note: H/o kyq-stpkqat-ogqebvtpt diabetes mellitus, hypertension, ASCAD, and TIA who [...] breast lumpectomy for DCIS on 04/08/2021 at [facility] Pathology (from [facility]) reveals - ductal carcinoma in situ...,size of DCIS - 1.0 x 0.4 cm...,architectural type - cribriform..., nuclear grade 1-2..., necrosis - present central (expansive comedo necrosis)..., biopsy cavity is 0.5 cm from closest anterior margin (which is skin)..., ER >95%, NM >95% Postoperative course is unremarkable with no [...] Skin:denies rashes/lesions Heme:denies bleeding, over due for INVESTMENT COUNSELOR exam The ROS is otherwise negative. Past [...] March 2026. - Continue follow up with PCP/GI/Cards/INVESTMENT COUNSELOR. - Needs follow up/yearly pelvic with INVESTMENT COUNSELOR-Marck Dumont CNP. - Follow up in 6 months. - Pt. aware to call office with any questions/concerns. The patient indicates understanding of these issues and agrees with the plan. All documentation from previous visit of 09/14/24-Dr. Georges/myself was copied and pasted, documentation has been reviewed and edited as necessary for today's visit. Chad Mariee APRN.ADDRESSOGRAPH OPERATOR Referring Provider: CHAD MARIEE [[id number]] Allergies As of Date: 03/21/2025 Noted Allergy Reaction BRILINTA (TICAGRELOR) 06/28/2017 12 - Shortness of Breath CRESTOR (ROSUVASTATIN) 04/10/2020 17 - Myalgia KEFLEX (CEPHALEXIN) 02/02/2006 14 - Other: See Comments Comments: facial flushing LIPITOR (ATORVASTATIN) 07/21/2013 14 - Other: See Comments Comments: myalgia LOVASTATIN (more content not included)... 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 Cataract Colon polyp 2011 Controlled type 2 diabetes mellitus without complication, without long-term current use of insulin ([facility]) 10/22/2016 De Quervain's tenosynovitis, left [...] [place] Type 2 diabetes mellitus with hyperlipidemia ([facility]) 04/17/2024 Vitamin D deficiency 2013 Well adult exam 01/16/2016 Last done: 09/08/2018 Surgical History: PAST SURGICAL HISTORY Procedure Laterality Date 2D ECHO (EXEP) 06/30/2017 EF=65%, trivial IN, TI and 1+ PI Unchanged from 04/2017 2D ECHO (EXEP) 05/14/2021 EF=60%, 1+ TI, trival IN, AI, PI 2D ECHO (EXEP) 09/16/2021 EF=60%, [...] HEART CATHETERIZ (more content not included)... Normal [facility] DBT Breast - bilateral scree ningon [...] Yennifer Fonseca D.O. Electronically signed on: 03/14/2025 Spinner Hydraulic: WriteOnKATE Transcribe Date/Time: Mar 14 2025 7:21A Dictated by: YENNIFER FONSECA DO This examination was interpreted and the report reviewed and electronically signed by: DANIEL MARINELLI MD on Mar 14 2025 1:29PM [facility] DIVISION OF RADIOLOGY * * *Final Report* * * DATE OF EXAM: Mar 14 2025 7:35AM [facility] 0582 - GUILLERMINA SCREENING W ANGELA / PROCEDURE REASON: multiple diagnoses * * * * Physician Interpretation * * * * RESULT: [place] [address] #[id number] - GUILLERMINA SCREENING W ANGELA HISTORY: 69 [...] in either breast. DIVISION OF RADIOLOGY Provider, [facility] - 03/14/2025 * * *Final Report* * * DATE OF EXAM: Mar 14 2025 7:35AM [facility] 0582 - GUILLERMINA SCREENING W ANGELA / PROCEDURE REASON: multiple diagnoses * * * * Physician Interpretation * * * * RESULT: [place] [address] #[id number] - GUILLERMINA SCREENING W ANGELA HISTORY: 69 [...] Yennifer Fonseca D.O. Electronically signed on: 03/14/2025 Spinner Hydraulic: ARINA Transcribe Date/Time: May 7 2025 7:21A Dictated by: YENNIFER FONSECA DO This examination was interpreted and the report reviewed and electronically signed by: DANIEL MARINELLI MD on Mar 14 2025 1:29PM EST [facility] Radiology Study observation (narrative) [facility] DBT Breast - bilateral scree ningOrdered By: Ccf Provider on 03-14-2025 [facility] GUILLERMINA SCREENING W TOMOon 03-14 GUILLERMINA SCREENING W ANGELA * * *Final Report* * * DATE OF EXAM: Mar 14 2025 7:35AM [facility] 0582 - GUILLERMINA SCREENING W ANGELA / PROCEDURE REASON: multiple diagnoses * * * * Physician Interpretation * * * * RESULT: [facility] [address] [place] [address] #[id number] - GUILLERMINA SCREENING W ANGELA HISTORY: 69 [...] Yennifer Fonseca D.O. Electronically signed on: 03/14/2025 Spinner Hydraulic: ARINA Artisrimary kay Date/Time: Mar 14 2025 7:21A Dictated by: YENNIFER FONSECA, DO This examination was interpreted and the report reviewed and electronically signed by: DANIEL MARINELLI MD on Mar 14 2025 1:29PM EST [id number] Normal [facility] ACTH Plas-mCncon 02-21-2025 Corticotropin (P) [Mass/Vol] 1.9 pg/mL Low 7.2-63.3 [facility] Comment on above: Order Comment: Taran acevedo Type: BLOOD SPECIMENOrdering Facility: [facility] Address: [address] [place] [address] Result Comment: ACTH Reference Range: 7-10 am: 7.2 - 63.3 pg/mL Performed By: #### 2 141-0 ####[facility] LABCLIA [id number] [place] [address] [place] Cortis p Dex SerPl-[facility] Cortisol post dose dexamethasone [Mass/Vol] 0.7 ug/dL Normal <1.8 [facility] Comment on above: Order Comment: Taran acevedo Type: BLOOD SPECIMENOrdering Facility: [facility] Address: [address] [place] [address] Result Comment: Afte r overnight 1 mg dexamethasone, an electric drill operator cortisol of <1.8 ug/dL may indicate an adequate cortisol suppression. This result should be interpreted within the clinical context and other test results. Dahlia et al. Evidence for the Low Dose Dexamethasone Suppression Test to Screen for Cher's Syndrome - Recommendations for a Protocol for Biochemistry Laboratories. 1997 Diamond. Clin. Biochem. 34 222-229. Performed By: #### 4 7851-1 ####[facility] LABCLIA [id number] [place] [address] [place] DEXAMETHASONEon 02-21-2025 DEXAMETHASONE 327.4 ng/dL Normal [facility] Comment on above: Order Comment: Speci men Type: BLOOD SPECIMENOrdering Facility: [facility] Address: [address] [place] [address] Result Comment: INTE RPRETIVE INFORMATION: Dexamethasone, Serum [...] developed and its performance characteristics determined by [facility]. It has not been cleared or approved by the US Food and Drug Administration. This test was performed in a CLIA certified laboratory and is intended for clinical purposes. Performed By: [facility] [address] [place] [address] Rn Neurosurgical: Jason Shore MD, PhD CLIA Number: [id number] Performed By: #### D EXA ####[facility] [facility] [id number] [place] [address] CNOVon 02-19-2025 CNOV Office Visit (URUN) DOM AVILA ([id number]) 1955 F Date Time Provider Department 02/19/25 8:40 AM ORI LORD URTIERNEY During your visit today, we recorded the following information about you: Pulse Blood pressure 65/minute 164/80 Ori Lord DO 02/19/2025 9:18 AM Signed [facility] ESTABLISHED PATIENT NOTE/HISTORY AND PHYSICAL PATIENT: Dom Vel Avila (69 year old) PCP: Clifton Hung MD DATE OF SERVICE: 02/19/2025 SUBJECTIVE: CHIEF COMPLAINT: Follow Up (6 mo f/u. Patient has no new complaints and denies any urinary issues. ) HISTORY OF PRESENT ILLNESS: Recording using Emitless software for draft documentation of the visit was discussed with the patient/authorized inbound call center representative; all questions welcomed and answered. Patient/authorized inbound call center representative agreed to proceed The patient was [...] scheduled and a follow-up appointment with her coin machine assembler on March 16. 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 Has been on provigil for 5-10 yrs Obstructive sleep apnea on CPAP Sibilia Other skin changes 09/26/2021 Seeing derm Pancreatic insufficiency ([facility]) 04/08/[address] Ortiz [place] [...] Date 2D ECHO (EXEP) 06/30/2017 EF=65%, trivial IN, TI and 1+ PI Unchanged from 04/2017 2D ECHO (EXEP) 05/14/2021 EF=60%, 1+ TI, trival IN, AI, PI 2D ECHO (EXEP) 09/16/2021 EF=60%, [...] CATHETERIZATION 10/09 (more content not included)... 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 CABG Diabetes Father Di (more content not included)... Normal [facility] ACTH Plas-mCncon 11-07-2024 Corticotropin (P) [Mass/Vol] 28.4 pg/mL Normal 7.2-63.3 [facility] Comment on above: Order Comment: Speci men Type: BLOOD SPECIMENOrdering Facility: [facility] Address: [address] [place] [address] Result Comment: ACTH Reference Range: 7-10 am: 7.2 - 63.3 pg/mL Performed By: #### 2 141-0 ####[facility] LABCLIA [id number] [place] [address] [place] CREATININE, 24 HOUR URINEon 11-07-2024 Creatinine (24H U) [Mass/Time] 0.786 g/24 hr Low 0.800-1.800 [facility] Comment on above: Order Comment: Speci men Type: URINE SPECIMENOrdering Facility: [facility] Address: [address] [place] [address] Performed By: #### U CRD ####[facility] LABCLIA [id number] [place] [address] [place] [facility] [id number] [place] [address] [place] PERIOD (HRS) 24 hr Normal [facility] Comment on above: Order Comment: Speci men Type: URINE SPECIMENOrdering Facility: [facility] Address: [address] [place] [address] Performed By: #### U CRD ####[facility] LABCLIA [id number] [place] [address] [place] [facility] [id number] [place] [address] [place] Specimen volume (24H U) 1.95 L Normal [facility] Comment on above: Order Comment: Speci men Type: URINE SPECIMENOrdering Facility: [facility] Address: [address] [place] [address] Performed By: #### U CRD ####[facility] LABCLIA [id number] [place] [address] OF [facility] [id number] [place] [id number] [place] [address] OF [facility] URINE FREE CORTISOL BY LC-MS /MSon 11-07-2024 CORTISOL UG/G PALLET RECTIFIER, UR (UFRCRT) 16.32 ug/g PALLET RECTIFIER Normal [facility] Comment on above: Order Comment: Speci men Type: URINE SPECIMENOrdering Facility: [facility] Address: [address] [place] [address] Result Comment: Refe rence Interval: Cortisol ug/g lead mechanical engineer Female Prepubertal: Less than 25 ug/g lead mechanical engineer 18 years and older: Less than 24 ug/g lead mechanical engineer : Less than 59 ug/g lead mechanical engineer Male Prepubertal: Less than 25 ug/g lead mechanical engineer 18 years and older: Less than 32 ug/g lead mechanical engineer Performed By: #### U FRCRT ####[facility] [id number] [place] [address] CREATININE, URINE PER 24H 800 mg/d Normal 500-1400 [facility] Comment on above: Order Comment: Speci men Type: URINE SPECIMENOrdering Facility: [facility] Address: [address] [place] [address] Performed By: #### U FRCRT ####[facility] [id number] [place] [address] CREATININE, URINE PER VOLUME 41 mg/dL Normal [facility] Comment on above: Order Comment: Speci men Type: URINE SPECIMENOrdering Facility: [facility] Address: [address] [place] [address] Performed By: #### U FRCRT ####[facility] [id number] [place] [address] FREE CORTISOL UG/DAY, URINE 13.0 ug/d Normal <=45.0 [facility] Comment on above: Order Comment: Speci men Type: URINE SPECIMENOrdering Facility: [facility] Address: [address] [place] [address] Performed By: #### U FRCRT ####[facility]IA [id number] [place] [address] FREE CORTISOL UG/L, URINE 6.69 ug/L Normal [facility] Comment on above: Order Comment: Speci men Type: URINE SPECIMENOrdering Facility: [facility] Address: [address] [place] [address] Performed By: #### U FRCRT ####[facility]IA [id number] [place] [address] HOURS COLLECTED 24 hr Normal [facility] Comment on above: Order Comment: Speci men Type: URINE SPECIMENOrdering Facility: [facility] Address: [address] [place] [address] Result Comment: Per 24h calculations are provided to aid interpretation for collections with a duration of 24 hours and an average daily urine volume. For specimens with notable deviations in collection time or volume, ratios of analytes to a corresponding urine creatinine concentration may assist in result interpretation. Performed By: #### U FRCRT ####[facility]IA [id number] [place] [address] TOTAL VOLUME 1950 mL Normal [facility] Comment on above: Order Comment: Speci men Type: URINE SPECIMENOrdering Facility: [facility] Address: [address] [place] [address] Performed By: #### U FRCRT ####[facility]IA [id number] [place] [address] UR DYAN FREE INTERP See Note Normal [facility] Comment on above: Order Comment: Speci men Type: URINE SPECIMENOrdering Facility: [facility] Address: [address] [place] [address] Result Comment: INTE RPRETIVE INFORMATION: Cortisol Urine Free by LC-MS/MS Access complete set of age- and/or gender-specific reference intervals for this test in the [facility] Test Directory ([employer]). This test was developed and its performance characteristics determined by [facility]. It has not been cleared or approved by the US Food and Drug Administration. This test was performed in a CLIA certified laboratory and is intended for clinical purposes. Performed By: [facility] [address] [place] [address] Rn Neurosurgical: Jason Shore MD, PhD CLIA Number: [id number] Performed By: #### U CRT ####[facility]armaREG[facility] TOLEDOIA [id number] [place] [address] CNOVon 11-03-2024 CNOV Office Visit (ENWSTR ) DOM AVILA ([id number]) 1955 F Date Time Provider Department 11/03/24 [...] disturbance 06/2017 Arthritis tendonitis, arthritis 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 (HCC) [...] (restless legs syndrome) 02/22/[address] Aysha Laurnet with ocular symptoms S/P angioplasty with stent [...] Date 2D ECHO (EXEP) 06/30/2017 EF=65%, trivial IN, TI and 1+ PI Unchanged from 04/2017 2D ECHO (EXEP) 05/14/2021 EF=60%, 1+ TI, trival IN, AI, PI 2D ECHO (EXEP) 09/16/2021 EF=60%, [...] 2004 parathyroidectomy (more content not included)... Normal [facility] Cardiology Visit Reporton Cardiology Visit Report [facility] [address] [place] [address] OFFICE VISIT Date of Service: 10/23/24 MR#: [id number] Acct: [id number] Name: DOM AVILA Rep #: [id number] : 1955 Provider: NEGRO valladares Age/Sex: 69/F [facility] Status: Signed HPI HPI History of [...] air Intake Visit Reasons: 6 M FU Exchange Administrator Required: No Accompanied by: Self Is patient [...] mg PO DAILY 11/30/22 10/23/24 History release [id number] e See Rx Instructions PO .COMPLEX 03/04/23 [...] syndrome) Hi (more content not included)... [facility] Office Visit (FAMPWS ) AUSTINDOM K ([id number]) 1955 F Date Time Provider Department 10/18/24 [...] last visit 09/2024 Patient sees Cardiology - [facility] last visit 04/2024 Past medical history, appointments, medications, allergies reviewed. Previous Medical History PAST MEDICAL HISTORY Diagnosis Date Advance directive discussed with patient 04/08/2023 Discussed 03/2023: Up to date Amaurosis fugax 10/29/2017 TIA; right visual disturbance 06/2017 Arthritis tendonitis, arthritis 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 (HCC) [...] Date 2D ECHO (EXEP) 06/30/2017 EF=65%, trivial IN, TI and 1+ PI Unchanged from 04/2017 2D ECHO (EXEP) 05/14/2021 EF=60%, 1+ TI, trival IN, AI, PI 2D ECHO (EXEP) 09/16/2021 EF=60%, [...] anterior dominick (more content not included)... Normal [facility] 25([place])D3 [facility] 25-hydroxyvitamin D3 [Mass/Vol] 34.7 ng/mL Normal 31.0-80.0 [facility] Comment on above: Order Comment: Speci men Type: BLOOD SPECIMENOrdering Facility: [facility] Address: [address] [place] [address] Result Comment: Clas sification of 25 [place] Vitamin D status: Deficiency/Insufficiency: < or = 30 ng/ml. Sufficiency/Optimal Levels: 31-80 ng/mL Toxicity: > 100 ng/mL. Test performed by chemiluminescent immunoassay. Performed By: #### 1 989-3 ####[facility] LABCLIA [id number] [place] [address] [place] Basic metabolic 2000 panelon 10-14-2024 Anion gap [Moles/Vol] 10 mmol/L Normal 8-15 [facility] Comment on above: Order Comment: Speci men Type: BLOOD SPECIMENOrdering Facility: [facility] Address: [address] [place] [address] Performed By: #### 2 4321-2, LIPNF ####[facility] LABIA [id number] [place] [address] [place] Calcium [Mass/Vol] 9.2 mg/dL Normal 8.5-10.2 [facility] Comment on above: Order Comment: Speci men Type: BLOOD SPECIMENOrdering Facility: [facility] Address: [address] [place] [address] Performed By: #### 2 4321-2, LIPNF ####[facility] LABCLIA [id number] [place] [address] [place] Chloride [Moles/Vol] 104 mmol/L Normal 98-107 [facility] Comment on above: Order Comment: Speci men Type: BLOOD SPECIMENOrdering Facility: [facility] Address: [address] [place] [address] Performed By: #### 2 4321-2, LIPNF ####[facility] LABCLIA [id number] [place] [address] [place] CO2 [Moles/Vol] 28 mmol/L Normal 22-30 [facility] Comment on above: Order Comment: Speci men Type: BLOOD SPECIMENOrdering Facility: [facility] Address: [address] [place] [address] Performed By: #### 2 4321-2, LIPNF ####[facility] LABCLIA [id number] [place] [address] [place] Creatinine [Mass/Vol] 0.79 mg/dL Normal 0.58-0.96 [facility] Comment on above: Order Comment: Speci men Type: BLOOD SPECIMENOrdering Facility: [facility] Address: [address] [place] [address] Performed By: #### 2 4321-2, LIPNF ####[facility] LABCLIA [id number] [place] [address] [place] [facility] Creatinine and Glomerular filtration rate.predicted panel (S/P/Bld) 82 mL/min/1.73m??? Normal >=60 [facility] Comment on above: Order Comment: Speci men Type: BLOOD SPECIMENOrdering Facility: [facility] Address: [address] [place] [address] Result Comment: Richa mated Glomerular Filtration Rate [...] GFR. Performed By: #### 2 4321-2, LIPNF ####[facility] LABCLIA [id number] [place] [address] [place] Glucose [Mass/Vol] 103 mg/dL High 74-99 [facility] Comment on above: Order Comment: Speci men Type: BLOOD SPECIMENOrdering Facility: [facility] Address: [address] [place] [address] Result Comment: The [place] Diabetes Association (ADA) provides guidance for cutoff [...] Standards of Medical Care in Diabetes 2016, [place] Diabetes Association. Diabetes Care. 2016.39(Suppl 1). Performed By: #### 2 4321-2, LIPNF ####[facility] LABCLIA [id number] [place] [address] [place] Potassium [Moles/Vol] 4.2 mmol/L Normal 3.7-5.1 [facility] Comment on above: Order Comment: Speci men Type: BLOOD SPECIMENOrdering Facility: [facility] Address: [address] [place] [address] Performed By: #### 2 4321-2, LIPNF ####[facility] LABCLIA [id number] [place] [address] [place] Sodium [Moles/Vol] 142 mmol/L Normal 136-144 [facility] Comment on above: Order Comment: Speci men Type: BLOOD SPECIMENOrdering Facility: [facility] Address: [address] [place] [address] Performed By: #### 2 4321-2, LIPNF ####[facility]CLIA [id number] [place] [address] [place] Urea nitrogen [Mass/Vol] 18 mg/dL Normal 7-21 [facility] Comment on above: Order Comment: Speci men Type: BLOOD SPECIMENOrdering Facility: [facility] Address: [address] [place] [address] Performed By: #### 2 4321-2, LIPNF ####[facility] LABCLIA [id number] OF [facility] HbA1c (Bld)on 10-14-2024 Average glucose Estimated from glycated hemoglobin (Bld) [Mass/Vol] 131 mg/dL Normal [facility] Comment on above: Order Comment: aTran acevedo Type: BLOOD SPECIMENOrdering Facility: [facility] Address: [address] [place] [address] Result Comment: eAG: (Estimated average glucose) is a calculated value from HgbA1c and is inbound call center representative of the average blood glucose level in the last 2-3 month period. Performed By: #### 5 5454-3 ####[facility] LABIA [id number] [address] HbA1c (Bld) [Mass fraction] 6.2 % High 4.3-5.6 [facility] Comment on above: Order Comment: Taran acevedo Type: BLOOD SPECIMENOrdering Facility: [facility] Address: [address] [place] [address] Result Comment: Amer [place] Diabetes Association guidelines indicate that patients with HgbA1c in the range 5.7-6.4% are at increased risk for development of diabetes, and intervention by lifestyle modification may be beneficial. HgbA1c greater or equal to 6.5% is considered diagnostic of diabetes. Performed By: #### 5 5454-3 ####[facility] LABIA [id number] [address] OF [place] LIPID PANEL, NONFASTINGon Cholesterol [Mass/Vol] 202 mg/dL High <200 [facility] Comment on above: Order Comment: Taran acevedo Type: BLOOD SPECIMENOrdering Facility: [facility] Address: [address] [place] [address] Result Comment: <200 mg/dL, Desirable 200-239 mg/dL, Borderline high >239 mg/dL, High Performed By: #### 2 4321-2, LIPNF ####[facility] LABCLIA [id number] [place] [address] [place] HDL CHOLESTEROL, NF 45 mg/dL Normal >39 [facility] Comment on above: Order Comment: Taran acevedo Type: BLOOD SPECIMENOrdering Facility: [facility] Address: [address] [place] [address] Result Comment: 40-5 9 mg/dL, Acceptable >59 mg/dL, High: Negative risk factor for coronary heart disease <40 mg/dL, Low: Positive risk factor for coronary heart disease Performed By: #### 2 4321-2, LIPNF ####[facility] LABCLIA [id number] [place] [address] [place] LDL CHOLESTEROL, NF 138 mg/dL High <100 [facility] Comment on above: Order Comment: Taran acevedo Type: BLOOD SPECIMENOrdering Facility: [facility] Address: [address] [place] [address] Result Comment: <100 mg/dL, Optimal 100-129 mg/dL, Near optimal/above optimal 130-159 mg/dL, Borderline high 160-189 mg/dL, High >189 mg/dL, Very high Secondary prevention optimal LDL Cholesterol levels are recommended to be < 70 mg/dL Performed By: #### 2 4321-2, LIPNF ####[facility] LABCLIA [id number] [place] [address] [place] LDL/HDL RATIO, NF 3.07 mg/dL High <2.54 [facility] Comment on above: Order Comment: Taran acevedo Type: BLOOD SPECIMENOrdering Facility: [facility] Address: [address] [place] [address] Result Comment: Michaelle mayes: 1. National Cholesterol Education Program ATP III Guideline At-A-Glance Quick Desk Reference: National Heart, Lung, and Blood Verdi. National Institutes of Health. 2001: NIH Publication No. 01-3305. 2. An International Atherosclerosis Society position paper: global recommendations for the management of dyslipidemia: executive summary, Atherosclerosis. 2014: 232(2):410-413. Performed By: #### 2 4321-2, LIPNF ####[facility] LABCLIA [id number] [place] [address] [place] NON HDL CHOL, NF 157 mg/dL High <130 [facility] [place] Comment on above: Order Comment: Speci men Type: BLOOD SPECIMENOrdering Facility: [facility] Address: [address] [place] [address] Result Comment: <130 mg/dL, Optimal 130-159 mg/dL, Near optimal/above optimal 160-189 mg/dL, Borderline high 190-219 mg/dL, High >219 mg/dL, Very high Secondary prevention optimal non HDL Cholesterol levels are recommended to be <100 mg/dL Performed By: #### 2 4321-2, LIPNF ####[facility] LABCLIA [id number] [place] [address] [place] T CHOL/HDL RATIO NF 4.49 mg/dL Normal <5.10 [facility] Comment on above: Order Comment: Speci men Type: BLOOD SPECIMENOrdering Facility: [facility] Address: [address] [place] [address] Performed By: #### 2 4321-2, LIPNF ####[facility] LABCLIA [id number] [place] [address] [place] TRIGLYCERIDES, NF 94 mg/dL Normal <150 [facility] Comment on above: Order Comment: Speci men Type: BLOOD SPECIMENOrdering Facility: [facility] Address: [address] [place] [address] Result Comment: <150 mg/dL, Normal 150-199 mg/dL, Borderline high 200-499 mg/dL, High >499 mg/dL, Very high Performed By: #### 2 4321-2, LIPNF ####[facility] LABCLIA [id number] [place] [address] [place] VLDL CHOLESTEROL, NF 19 mg/dL Normal <30 [facility] Comment on above: Order Comment: Speci men Type: BLOOD SPECIMENOrdering Facility: [facility] Address: [address] [place] [address] Performed By: #### 2 4321-2, LIPNF ####[facility] LABCLIA [id number] [address] P24ODFIWEPUWHEATHER [place] [id number] [place] CNPNon 10-13-2024 CNPN Telephone (FAMPWS) DOM AVILA ([id number]) 1955 F Date Time Provider Department [facility]/13[facility] your visit today, we recorded [...] Order(s):VITAMIN D 25 HYDROXY [SQVITD] Order #: [id number] FUTURE HEMOGLOBIN A1C [PPXEQ1C] Order #: [id number] FUTURE LIPID PANEL, NONFASTING [SQLIPNF] Order #: [id number] FUTURE BASIC METABOLIC PANEL [SQBMP] Order #: [id number] FUTURE Prescriptions as of 10/13/2024 - dexAMETHasone [...] MG DAILY August 23, 2019 3:27pm - melzjb-kpikamet-dufbio e (CREON 36) 36,000-114,000- 180,000 unit delayed [...] 2 diabetes mellitus without com*10/22/2016 Atherosclerosis of kaibab coronary artery with *01/09/2017 S/P angioplasty with stent [Z95.820] 01/09/2017 Meniere disease, right [H81.01] 10/29/2017 History of transient ischemic attack (TIA) [Z86*10/29/2017 Garibay's cyst of knee, left [M71.22] 03/02/2018 Psoriasis [L40.9] Ductal carcinoma in situ (DCIS) of left breast *05/26/2021 Irritable bowel syndrome with diarrhea [K58.0] 05/26/2021 Foot callus [L84] 05/26/2021 Other skin ramona (more content not included)... Normal [facility] Cortis p Dex SerPl-ncon Cortisol post dose dexamethasone [Mass/Vol] 2.0 ug/dL High <1.8 [facility] Comment on above: Order Comment: Taran acevedo Type: BLOOD SPECIMENOrdering Facility: [facility] Address: [address] [place] [address] Result Comment: Afte r overnight 1 mg dexamethasone, an electric drill operator cortisol of <1.8 ug/dL may indicate an adequate cortisol suppression. This result should be interpreted within the clinical context and other test results. Dahlia et al. Evidence for the Low Dose Dexamethasone Suppression Test to Screen for Greenfield's Syndrome - Recommendations for a Protocol for Biochemistry Laboratories. 1997 Diamond. Clin. Biochem. 34 222-229. Performed By: #### 4 7851-1 ####[facility] LABIA [id number] [place] [address] [place] ACTH [facility] 10-02-2024 Corticotropin (P) [Mass/Vol] 25.6 pg/mL Normal 7.2-63.3 [facility] Comment on above: Order Comment: Taran acevedo Type: BLOOD SPECIMENOrdering Facility: [facility] Address: [address] [place] [address] Result Comment: ACTH Reference Range: 7-10 am: 7.2 - 63.3 pg/mL Performed By: #### 2 141-0 ####[facility] LABIA [id number] [place] [address] [place] ALDOSTERONE/DIRECT RENIN RAT IOon 10-02-2024 JONATHAN RENIN RATIO 1.2 Normal <3.8 [facility] [place] Comment on above: Order Comment: Taran acevedo Type: BLOOD SPECIMENOrdering Facility: [facility] Address: [address] [place] [address] Result Comment: A ra ben of aldosterone in ng/dL to direct renin in pg/mL greater than or equal to 3.8 is a positive screening test result for primary aldosteronism, when aldosterone is greater than or equal to 15 ng/dL. Performed By: #### A LDREN ####[facility] LABCLIA [id number] [place] [address] [place] Aldosterone [Mass/Vol] 6.1 ng/dL Normal 0.0-<35.4 [facility] Comment on above: Order Comment: Taran acevedo Type: BLOOD SPECIMENOrdering Facility: [facility] Address: [address] [place] [address] Result Comment: The reference interval for serum/plasma [...] 15 ng/dL. Performed By: #### A LDREN ####[facility] LABCLIA [id number] [address] STATES OF [facility] DIRECT RENIN 5.2 pg/mL Normal 3.6-81.6 [facility] Comment on above: Order Comment: Taran acevedo Type: BLOOD SPECIMENOrdering Facility: [facility] Address: [address] [place] [address] Result Comment: The reference interval for direct [...] 15 ng/dL. Performed By: #### A LDREN ####[facility] LABCLIA [id number] [place] [address] [place] PATIENT UPRIGHT OR SUPINE Upright Normal [facility] Comment on above: Order Comment: Taran acevedo Type: BLOOD SPECIMENOrdering Facility: [facility] Address: [address] [place] [address] Performed By: #### A ADITI ####[facility] LABCLIA [id number] [facility]AR[facility]INDER [id number] [address] [place] DEXAMETHASONEon 10-02-2024 DEXAMETHASONE <50.0 Normal [facility] Comment on above: Order Comment: Speci men Type: BLOOD SPECIMENOrdering Facility: [facility] Address: [address] [place] [address] Result Comment: INTE RPRETIVE INFORMATION: Dexamethasone, Serum [...] developed and its performance characteristics determined by [facility]. It has not been cleared or approved by the US Food and Drug Administration. This test was performed in a CLIA certified laboratory and is intended for clinical purposes. Performed By: [facility] [address] [place] [address] Rn Neurosurgical: Jason Shore MD, PhD [place] Number: [id number] Performed By: #### Aldair CORREA ####[facility] [id number] [place] [address] DHEA-S BLDon 10-02-2024 DHEA-S [Mass/Vol] 44.2 ug/dL Normal <=246.9 [facility] Comment on above: Order Comment: Speci men Type: BLOOD SPECIMENOrdering Facility: [facility] Address: [address] [place] [address] Result Comment: Refe rence ranges are age and gender specific. For additional information, reference range tables can be found in the laboratory test directory. The normal values are based on the following source: Dehydroepiandrosterone sulfate (DHEA S) [package insert V 17.0 Yakut]. [facility], [place], [place]: June 2013. Performed By: #### Aldair AVITIA ####[facility] LABCLIA [id number] [address] [id number] [place] [id number] [place] POTASSIUMon 10-02-2024 Potassium [Moles/Vol] 3.8 mmol/L Normal 3.7-5.1 [facility] Comment on above: Order Comment: Speci men Type: BLOOD SPECIMENOrdering Facility: [facility] Address: [address] [place] [address] Performed By: #### K 1 ####[facility] LAURENT MILLRUPERTNCLIA [id number] [place] [id number] [place] CNOVon 09-22-2024 CNOV Office Visit (ENWSTR ) DOM AVILA ([id number]) 1955 F Date Time Provider Department 09/22/24 [...] Initial visit/ LV 07/11/24 Patient referred by: Oir Lord DO (Urology) She was seeing urology [...] disturbance 06/2017 Arthritis tendonitis, arthritis 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 (HCC) [...] Date 2D ECHO (EXEP) 06/30/2017 EF=65%, trivial IN, TI and 1+ PI Unchanged from 04/2017 2D ECHO (EXEP) 05/14/2021 EF=60%, 1+ TI, trival IN, AI, PI 2D ECHO (EXEP) 09/16/2021 EF=60%, [...] DETACHED RETIN (more content not included)... Normal [facility] CNOVSPon 09-14-2024 CNOVSP Visit (SP) Office (DEX) DOM AVILA ([id number]) 1955 F Date Time Provider Department 09/14/24 [...] DCIS. Per Dr. 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 2024 The ROS [...] Continue tamoxifen. - Continue follow up with PCP/GI/Cards/INVESTMENT COUNSELOR. - Mammogram due March 2025. - Follow up after above. - Pt. aware to call office with any questions/concerns. The sensitive examination was discussed with the Patient or Patient's Authorized Ecommerce Marketing Specialist. As applicable, any other physician, advance practice provider, medical student, or other health professional student that will be observing or involved in the sensitive examination for educational or training purposes was discussed with the Patient or Authorized Ecommerce Marketing Specialist. The Patient or Authorized Ecommerce Marketing Specialist has agreed to proceed with the sensitive examination. (Sensitive examination includes inspection and/or palpation of the breasts, pelvis, prostate and anorectal regions) The patient indicates understanding of these issues and agrees with the plan. All documentation from previous visit of 03/14/24-Dr. Georges/ (more content not included)... Normal [facility] CT ADRENAL WO/W IVCONon 10-0 CT ADRENAL WO/W IVCON * * *Final Report* * * DATE OF EXAM: Aug 15 2024 9:44AM [facility] 0536 - CT ADRENAL WO/W IVCON [...] Lower thorax and bones: No significant findings. Equipment Maintenance Supervisor (topogram) images: No additional findings. IMPRESSION: 1. Stable 1.0 cm left adrenal adenoma. 2. Minimal mesenteric fat stranding in the left flank, nonspecific. Spinner Hydraulic: [facility] Transcribe Date/Time: Aug 15 2024 9:33A Dictated by : MICHELE CAO MD This examination was interpreted and the report reviewed and electronically signed by: MICHELE CAO MD on Aug 15 2024 10:27AM EST [id number] Normal [facility] CT Adrenal gland WO and W co ntrast Rikki 08-15-2024 IMPRESSION: 1. Stable 1.0 cm left adrenal adenoma. 2. Minimal mesenteric fat stranding in the left flank, nonspecific. Spinner Hydraulic: [facility] Transcribe Date/Time: Aug 15 2024 9:33A Dictated by : MICHELE CAO MD This examination was interpreted and the report reviewed and electronically signed by: MICHELE CAO MD on Aug 15 2024 10:27AM EST DIVISION OF RADIOLOGY * * *Final Report* * * DATE OF EXAM: Aug 15 2024 9:44AM [facility] 0536 - CT ADRENAL WO/W IVCON [...] Lower thorax and bones: No significant findings. Equipment Maintenance Supervisor (topogram) images: No additional findings. DIVISION OF RADIOLOGY Provider, [facility] - 08/15/2024 * * *Final Report* * * DATE OF EXAM: Aug 15 2024 9:44AM [facility] 0536 - CT ADRENAL WO/W IVCON [...] Lower thorax and bones: No significant findings. Equipment Maintenance Supervisor (topogram) images: No additional findings. IMPRESSION IMPRESSION: 1. Stable 1.0 cm left adrenal adenoma. 2. Minimal mesenteric fat stranding in the left flank, nonspecific. Spinner Hydraulic: [facility] Transcribe Date/Time: Aug 15 2024 9:33A Dictated by : MICHELE CAO MD This examination was interpreted and the report reviewed and electronically signed by: MICHELE CAO MD on Aug 15 2024 10:27AM EST [facility] Radiology Study observation (narrative) [facility] CT Adrenal gland WO and W co ntrast IVOrdered By: Ccf Provider on 08-15-2024 [facility] CREATININE BLDon 08-08-2024 Creatinine [Mass/Vol] 0.96 mg/dL Normal 0.58-0.96 [facility] Comment on above: Order Comment: Speci men Type: BLOOD SPECIMENOrdering Facility: [facility] Address: [address] [place] [address] Performed By: #### C RET1 ####[facility] [id number] [address] [place] Creatinine and Glomerular filtration rate.predicted panel (S/P/Bld) 65 mL/min/1.73m??? Normal >=60 [facility] Comment on above: Order Comment: Speci men Type: BLOOD SPECIMENOrdering Facility: [facility] Address: [address] [place] [address] Result Comment: Rciha mated Glomerular Filtration Rate (eGFR) is calculated [...] GFR. 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 Normal [facility] UA DIP, URINE (POC)on 2023 BILIRUBIN UA (POCT) Negative Negative [facility] CLARITY UA (POCT) Clear [facility] COLOR UA (POCT) Yellow [facility] GLUCOSE UA (POCT) Negative Negative mg/dL [facility] Hemoglobin Ql (U) Negative Negative [facility] Interpretation and review of laboratory results Abnormal [facility] KETONE UA (POCT) Negative Negative mg/dL [facility] LEUKOCYTES UA (POCT) Small Abnormal Negative [facility] NITRITE UA (POCT) Negative Negative [facility] PH UA (POCT) 6.0 4.5 - 8.0 [facility] Protein Ql (U) Negative Negative mg/dL [facility] SPECIFIC GRAVITY UA (POCT) 1.020 1.005 - 1.030 [facility] UROBILINOGEN UA (POCT) 0.2 Normal E.U./d L [facility] Location:[facility] Urolog y, [address] [place] [address] Dr. 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 Gomez 03/02/2018: Garibay's cyst of knee, left 03/2021: Breast neoplasm, Tis (DCIS), left No date: CAD (coronary artery disease) No date: Cataract 2012: Colon polyp 10/22/2016: Controlled type 2 diabetes mellitus without complication, without long-term current use of insulin (HCC) 07/31/2019: De Quervain's tenosynovitis, left 01/16/2016: Diabetic eye exam ([facility]) Comment: Lat done: 12/03/2017 No [...] 06/30/2017: 2D ECHO (EXEP) Comment: EF=65%, trivial IN, TI and 1+ PI Unchanged from 04/201705/14/2021: 2D ECHO (EXEP) Comment: EF=60%, 1+ TI, trival IN, AI, PI 09/16/2021: 2D ECHO (EXEP) Comment: [...] DISK SURG (more content not included)... Normal [facility] CNOVon 07-04-2024 CNOV Office Visit (URUN) DOM AVILA ([id number]) 1955 F Date Time Provider Department 07/04/24 11:00 AM ORI LORD During your visit today, we recorded the following information about you: Pulse Blood pressure 70/minute 121/76 Ori Lord DO 07/04/2024 11:16 AM Signed [facility] ESTABLISHED PATIENT NOTE/HISTORY AND PHYSICAL PATIENT: Dom Avila (68 year old) PCP: Clifton Hung MD DATE OF SERVICE: 07/04/2024 SUBJECTIVE: CHIEF COMPLAINT: Patient is here for 6 week f/u. Patient has no new concerns. Patient is scheduled to see an Manager Integrated on 07/11/24. 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 Normal [facility] UA DIP, URINE (POC)on 2023 BILIRUBIN UA (POCT) Negative Negative [facility] CLARITY UA (POCT) Clear [facility] COLOR UA (POCT) Yellow [facility] GLUCOSE UA (POCT) Negative Negative mg/dL [facility] Hemoglobin Ql (U) Negative Negative [facility] Interpretation and review of laboratory results Abnormal [facility] KETONE UA (POCT) Negative Negative mg/dL [facility] LEUKOCYTES UA (POCT) Small Abnormal Negative [facility] NITRITE UA (POCT) Negative Negative [facility] PH UA (POCT) 5.5 4.5 - 8.0 [facility] Protein Ql (U) Negative Negative mg/dL [facility] SPECIFIC GRAVITY UA (POCT) 1.015 1.005 - 1.030 [facility] UROBILINOGEN UA (POCT) 0.2 Normal E.U./d L [facility] Location:[facility] Urolog y, [address] [place] [address] Dr. Anne [address], [place], [place], [id number] [place] [address] POINT OF CARE [facility] CA 19-9 Serial Monitoron CA 19-9 GRAPH Normal [facility] Comment on above: Order Comment: Test( s) 455392-Fmthhoztpwd; 100346-Udymn Activity, Plasmawas developed and its performance characteristicsdetermined by [facility]. It has not been cleared or approvedby the Food and Drug Administration.NN Result Comment: SEE SCANNED REPORT Performed By: #### L 3300.1000, L501.6710, L3100.3425, L2100.0000, L3100.5017, L101.9900, L3300.1050, L3200.1100, L100.0100, L501.2450, L501.2400, L500.4050, L3200.0500, L509.6000 ####[facility] [address] [place], [place], [id number] MANUEL + Protein Elect, Serumon 06-28-2024 IMMUNOGLOB G QN TNP Normal [facility] Comment on above: Order Comment: Test( s) 696023-Hygxghftrfj; 577484-Abbay Activity, Plasmawas developed and its performance characteristicsdetermined by [facility]. It has not been cleared or approvedby the Food and Drug Administration.NN Performed By: #### L 3300.1000, L501.6710, L3100.3425, L2100.0000, L3100.5017, L101.9900, L3300.1050, L3200.1100, L100.0100, L501.2450, L501.2400, L500.4050, L3200.0500, L509.6000 ####[facility] [address] [place], [place], [phone]- Adrenocorticotropic Hormoneo n 06-27-2024 ACTH TNP Normal . [facility] Comment on above: Order Comment: Test( s) 833436-Mzrualzddtc; 850231-Itsmg Activity, Plasmawas developed and its performance characteristicsdetermined [...] L3200.1100, L100.0100, L501.2450, L501.2400, L500.4050, L3200.0500, L509.6000 ####[facility] [address] [place], [address] IgG Subclasseson 06-27-2024 IgG, SUBCLASS 1 726 mg/dL Normal 248-810 [facility] Comment on above: Order Comment: Test( s) 262603-Jgdtgrcwkem; 617569-Xuclt Activity, Plasmawas developed and its performance characteristicsdetermined by [facility]. It has not been cleared or approvedby the Food and Drug Administration.NN Performed By: #### L 3300.1000, L501.6710, L3100.3425, L2100.0000, L3100.5017, L101.9900, L3300.1050, L3200.1100, L100.0100, L501.2450, L501.2400, L500.4050, L3200.0500, L509.6000 ####[facility] [address] [place], [address] IgG, SUBCLASS 2 165 mg/dL Normal 130-555 [facility] Comment on above: Order Comment: Test( s) 399895-Vxsbytrmeyd; 052538-Drdlg Activity, Plasmawas developed and its performance characteristicsdetermined by [facility]. It has not been cleared or approvedby the Food and Drug Administration.NN Performed By: #### L 3300.1000, L501.6710, L3100.3425, L2100.0000, L3100.5017, L101.9900, L3300.1050, L3200.1100, L100.0100, L501.2450, L501.2400, L500.4050, L3200.0500, L509.6000 ####[facility] [address] [place], [address] IgG, SUBCLASS 3 90 mg/dL Normal 15-102 [facility] Comment on above: Order Comment: Test( s) 512584-Ctoypudozst; 410057-Tspqm Activity, Plasmawas developed and its performance characteristicsdetermined by [facility]. It has not been cleared or approvedby the Food and Drug Administration.NN Performed By: #### L 3300.1000, L501.6710, L3100.3425, L2100.0000, L3100.5017, L101.9900, L3300.1050, L3200.1100, L100.0100, L501.2450, L501.2400, L500.4050, L3200.0500, L509.6000 ####[facility] [address] [place], [address] IgG, SUBCLASS 4 7 mg/dL Normal 2-96 [facility] Comment on above: Order Comment: Test( s) 959839-Ojyfwomoecw; 009462-Vmnej Activity, Plasmawas developed and its performance characteristicsdetermined by [employer]. It has not been cleared or approvedby the Food and Drug Administration.NN Performed By: #### L 3300.1000, L501.6710, L3100.3425, L2100.0000, L3100.5017, L101.9900, L3300.1050, L3200.1100, L100.0100, L501.2450, L501.2400, L500.4050, L3200.0500, L509.6000 ####[facility] [address] [place], [address] IGG,QUANT 1152 mg/dL Normal 586-1602 [facility] Comment on above: Order Comment: Test( s) 579885-Hkonhbpldwq; 317826-Nrine Activity, Plasmawas developed and its performance characteristicsdetermined by [facility]. It has not been cleared or approvedby the Food and Drug Administration.NN Performed By: #### L 3300.1000, L501.6710, L3100.3425, L2100.0000, L3100.5017, L101.9900, L3300.1050, L3200.1100, L100.0100, L501.2450, L501.2400, L500.4050, L3200.0500, L509.6000 ####[facility] [address] [place], [address] Immunoglobulins G/A/M/Giuseppe IMMUNOGLOB E QN 3 IU/mL Low 6-495 [facility] Comment on above: Order Comment: Test( s) 582094-Zfmyupltxlh; 983122-Gydqh Activity, Plasmawas developed and its performance characteristicsdetermined by [facility]. It has not been cleared or approvedby the Food and Drug Administration.NN Performed By: #### L 3300.1000, L501.6710, L3100.3425, L2100.0000, L3100.5017, L101.9900, L3300.1050, L3200.1100, L100.0100, L501.2450, L501.2400, L500.4050, L3200.0500, L509.6000 ####[facility] [address] [place], [address] L2100.0000on 06-27-2024 ACCA 18 units Normal 0-90 [facility] Comment on above: Order Comment: Test( s) 560710-Zdbextercaq; 563569-Hcupr Activity, Plasmawas developed and its performance characteristicsdetermined by [employer]. It has not been cleared or approvedby the Food and Drug Administration.NN Result Comment: Nega tive: <80 Equivocal: 80-90 Positive: >90 Performed By: #### L 3300.1000, L501.6710, L3100.3425, L2100.0000, L3100.5017, L101.9900, L3300.1050, L3200.1100, L100.0100, L501.2450, L501.2400, L500.4050, L3200.0500, L509.6000 ####[facility] [address] [place], [place], [address] ALCA 4 units Normal 0-60 [facility] Comment on above: Order Comment: Test( s) 664327-Jgjaqbxwvsp; 861973-Npoca Activity, Plasmawas developed and its performance characteristicsdetermined by [facility]. It has not been cleared or approvedby the Food and Drug Administration.NN Result Comment: Nega tive:<55 Equivocal: 55-60 Positive: >60 Performed By: #### L 3300.1000, L501.6710, L3100.3425, L2100.0000, L3100.5017, L101.9900, L3300.1050, L3200.1100, L100.0100, L501.2450, L501.2400, L500.4050, L3200.0500, L509.6000 ####[facility] [address] [place], [place], [address] AMCA 22 units Normal 0-100 [facility] Comment on above: Order Comment: Test( s) 358078-Edtnbulaifa; 396758-Wibpa Activity, Plasmawas developed and its performance characteristicsdetermined [...] L3200.1100, L100.0100, L501.2450, L501.2400, L500.4050, L3200.0500, L509.6000 ####[facility] [address] [place], [place], [address] Atypical pANCA Negative Normal Negative [facility] Comment on above: Order Comment: Test( s) 946378-Lgznxonkrvd; 061281-Mogcp Activity, Plasmawas developed and its performance characteristicsdetermined by [facility]. It has not been cleared or approvedby the Food and Drug Administration.NN Performed By: #### L 3300.1000, L501.6710, L3100.3425, L2100.0000, L3100.5017, L101.9900, L3300.1050, L3200.1100, L100.0100, L501.2450, L501.2400, L500.4050, L3200.0500, L509.6000 ####[facility] [address] [place], [place], [address] COMMENT Comment Normal . [facility] Comment on above: Order Comment: Test( s) 849379-Gotnxoymzhy; 319363-Aiocc Activity, Plasmawas developed and its performance characteristicsdetermined by [facility]. It has not been cleared or approvedby the Food and Drug Administration.NN Result Comment: Aundrea antoni is not suggestive of Inflammatory Bowel Disease Performed By: #### L 3300.1000, L501.6710, L3100.3425, L2100.0000, L3100.5017, L101.9900, L3300.1050, L3200.1100, L100.0100, L501.2450, L501.2400, L500.4050, L3200.0500, L509.6000 ####[facility] [address] [place], [place], [address] Lenny 22 units Normal 0-50 [facility] Comment on above: Order Comment: Test( s) 558946-Ncktxanaxrw; 861912-Trrgt Activity, Plasmawas developed and its performance characteristicsdetermined by [facility]. It has not been cleared or approvedby the Food and Drug Administration.NN Result Comment: Nega tive: <45 Equivocal: 45-50 Positive: >50 Performed By: #### L 3300.1000, L501.6710, L3100.3425, L2100.0000, L3100.5017, L101.9900, L3300.1050, L3200.1100, L100.0100, L501.2450, L501.2400, L500.4050, L3200.0500, L509.6000 ####[facility] [address] [place], [place], [address](424) Renin/Aldosterone Activityon 06-27-2024 ALD/RENIN RATIO 2.3 Normal 0.0-30.0 [facility] Comment on above: Order Comment: Test( s) 516770-Nboyhweduor; 389612-Qjkbh Activity, Plasmawas developed and its performance characteristicsdetermined by [employer]. It has not been cleared or approvedby the Food and Drug Administration.NN Result Comment: Unit s: ng/dL per ng/mL/hr Performed By: #### L 3300.1000, L501.6710, L3100.3425, L2100.0000, L3100.5017, L101.9900, L3300.1050, L3200.1100, L100.0100, L501.2450, L501.2400, L500.4050, L3200.0500, L509.6000 ####[facility] [address] [facility] [place], [place], [phone] ALDOSTERONE,S 3.4 ng/dL Normal 0.0-30.0 [facility] Comment on above: Order Comment: Test( s) 599650-Jidjihsgbto; 450035-Hmjej Activity, Plasmawas developed and its performance characteristicsdetermined by [employer]. It has not been cleared or approvedby the Food and Drug Administration.NN Performed By: #### L 3300.1000, L501.6710, L3100.3425, L2100.0000, L3100.5017, L101.9900, L3300.1050, L3200.1100, L100.0100, L501.2450, L501.2400, L500.4050, L3200.0500, L509.6000 ####[facility] [address] [facility] [place], [place], [address] RENIN, PLASMA 1.500 ng/mL/hr Normal 0.167-5.380 [facility] Comment on above: Order Comment: Test( s) 182725-Dzttlvjzjvk; 308280-Vfuus Activity, Plasmawas developed and its performance characteristicsdetermined by [facility]. It has not been cleared or approvedby the Food and Drug Administration.NN Performed By: #### L 3300.1000, L501.6710, L3100.3425, L2100.0000, L3100.5017, L101.9900, L3300.1050, L3200.1100, L100.0100, L501.2450, L501.2400, L500.4050, L3200.0500, L509.6000 ####[facility] [address] [facility] [place], [place], [address] CT Abd/Pelvis W/WO Contrasto n 06-23-2024 CT Abd/Pelvis W/WO Contrast [facility] [address] [place], [place] [address] CT Abd/Pelvis W/WO Contrast MR#: [id number] Acct: [id number] Name: DOM AVILA Rep #: [id number] : 1955 F 68 From: Justen lance MD PCP: Dr. Clifton Hung MD Status: [facility] Study: CT Abd/Pelvis W/WO Contrast Date of Exam: 06/08 05/01 Exam# [id number] Ordering Dr: Carson Alcantar DO [id number] STUDY: CT ABDOMEN AND PELVIS WITH AND [...] Dr. Clifton Hung MD; Carson Alcantar DO [employer]: Signed Normal [facility] Bedside Glucoseon 06-19-2024 FINGERSTICK GLU 150 mg/dL High 74-106 [facility] Comment on above: Result Comment: KAYA GEMENT OF PATIENT CARE PER NURSING PROTOCOL Performed By: #### L 501.080 ####[facility] [address] [place], [address] Colonoscopy Reporton 024 Colonoscopy Report [facility] Medical Records Department [address] [place] [address] Colonoscopy Report MR#: [id number] Acct: [id number] Name: DOM AVILA Rep #: [id number] : 1955 68 From: Carson Alcantar DO PCP: Dr. Clifton Hung MD Status:[facility] Patient Name: Dom Avila Procedure Date: 06/19/2024 [...] screening purposes. Procedure Code(s): --- Professional --- 75064, Colonoscopy, flexible; with biopsy, single or multiple CPT copyright 2021 [employer]. All rights reserved. The codes documented in this report are preliminary and upon eye care professional review may be revised to meet current compliance requirements. Carson Alcantar DO 06/19/2024 11:39:02 AM This report has been signed electronically. Number of Addenda: 0 Note Initiated On: 06/19/2024 11:18 AM 06/19/24 1139 Date Carson Alcantar DO Cosigner Signature: Date (if indicated) CC: Dr. Clifton Hung MD; Carson Alcantar DO Date Dictated: (more content not included)... Normal [facility] EGD Reporton 06-19-2024 EGD Report [facility] Medical Records Department [address] [place] [address] EGD Report MR#: [id number] Acct: [id number] Name: DOM AVILA Rep #: [id number] : 1955 68 From: Carson Alcantar DO PCP: Dr. Clifton Hung MD Status:[facility] Patient Name: Dom Avila Procedure Date: 06/19/2024 [...] pathology results. Procedure Code(s): --- Professional --- 78373, Esophagogastroduodenos copy, flexible, transoral; with biopsy, single or multiple CPT copyright 2021 [employer]. All rights reserved. The codes documented in this report are preliminary and upon eye care professional review may be revised to meet current compliance requirements. Carson Alcantar DO 06/19/2024 11:36:11 AM This report has been signed electronically. Number of Addenda: 0 Note Initiated On: 06/19/2024 11:05 AM 06/19/24 1136 Date Carson Cool Signature: Date (if indicated) CC: Dr. Clifton Hung MD; Carson Alcantar DO Date Dictated: 06/19/241104 Date Transcribed: Spinner Hydraulic: BETTY Signed Normal [facility] H Pylori (initial)on H Pylori (initial) -- ---- Patient Age/Sex Location Account Attending Physician ---- DOM AVILA 68/F EN [id number] Carson Alcantar DO ---- Specimen: [id number] Received: 06/19/24-1553 Status: SOL Roland Num: [id number] Spec Type: IMMUNO Subm Dr: Carson Alcantar DO PHYSICIAN INSTITUTION [facility] [address] [place], [place] [address] SPECIMEN INFORMATION: Tissue Source: B- Gastric body biopsy Clinical Info: Elevated CA 19-9 level, diarrhea Specimen Number: [id number] CPT code: 53200 METHODOLOGY: Deparaffinized sections of prefer/formalin-fixed tissue or [...] developed and their performance characteristics determined by [facility]. They may not have been [...] Dexter Orta MD 06/30/24 1436 ---- Normal [facility] Comment on above: Performed By: #### P H.PYLORI #### [facility] [address] [facility] [place], [place], [address] MR/POSTOP.Jimena 06-19-2024 MR/POSTOP.[facility] Medical Records Department [address] [place] [address] Anesthesia Postop Eval I 06/19/24 1141 MR#: [id number] Acct: [id number] Name: DOM AVILA Rep #: [id number] : 1955 68 From: Erasto Medina PCP: Dr. Clifton Hung MD Status:[facility] Y Race: C Location: [place] [address] Anesthesia: Postop Eval I Current Vital Signs [...] Erasto Hoyt Signature: Date CC: Signed Normal [facility] MR/DAJSOGKQ6dc 06-19-2024 [facility] Medical Records Department [address] [place] [address] Anesthesia Postop Eval II 06/19/24 1336 MR#: [id number] Acct: [id number] Name: DOM AVILA Rep #: [id number] : 1955 68 From: Pee Lomeli MD PCP: Dr. Clifton Hung MD Status:[facility] Y Race: C Location: [place] Anesthesia Postop [...] Pee Hoyt Signature: Date CC: Signed Normal [facility] Surgery Specimen Level Rikki 06-19-2024 Surgery Specimen Level IV ---- Patient Age/Sex Location Account Attending Physician ---- DOM AVILA 68/F EN [id number] Carson Alcantar DO ---- Specimen: [id number] Received: 06/19/24 Status: SOL Roland Num: [id number] Spec Type: COLON BX Subm Dr: Carson [...] for Helicobacter pylori will be reported separately ([id number]). MICROSCOPIC DESCRIPTION Slides are reviewed. B. The [...] Attending Physician ---- DOM AVILA 68/F EN [id number] Carson Alcantar DO ---- in one cassette. D. Received in fixative is one container labeled with the patient's name and designated Random colon biopsy. The specimen consists of multiple irregular fragments of light jaramillo soft tissue that in aggregate measure 2.5 x 0.6 x 0.1 cm. The specimen is totally submitted in one cassette. Domingo 06/20/2024 TC:3 CPT:60733x1 ---- Patient Age/Sex Location Account Attending Physician ---- DOM AVILA 68/F EN [id number] Carson Alcantar DO ---- Signed (signature on file) Dr. Dexter Orta MD 06/21/24 1120 ---- Normal [facility] Comment on above: Performed By: #### P SUIV ####[facility] [address] [place], [address] M7400.3302on 06-15-2024 M7400.3302 __ TESTING PERFORMED AT [facility]. ORIGINAL REPORT ON FILE IN LAB CONTAINS ADDITIONAL TEST SITE INFORMATION. Giardia Lamblia EIA NEGATIVE Normal [facility] Comment on above: Performed By: #### M 100.0605, M7400.3302, L7000.0300, L7000.0700, M600.5000, L7000.0750 ####[facility] [address] [place], [address] Ova and Parasites 8623on OP OVA AND PARASITES EXAM, ROUTINE These results were obtained using wet preparation(s) and trichrome stained smear. This test does not include testing for Crytosporidium parvum, Cyclospora, or Microsporidia. O+P Spec Micro One negative specimen does not rule out the possibility of a parasitic infection. TESTING PERFORMED AT [facility]. ORIGINAL REPORT ON FILE IN LAB CONTAINS ADDITIONAL TEST SITE INFORMATION. Ova/Parasite Exam NO OVA, CYSTS, OR PARASITES FOUND. Normal [facility] Comment on above: Performed By: #### M 100.0605, M7400.3302, L7000.0300, L7000.0700, M600.5000, L7000.0750 ####[facility] [address] [place], [address] Calprotectin, Stoolon [address] 111 ug/g Normal 0-120 [facility] Comment on above: Order Comment: Test( s) 501732-Dexo, Neutral; 825214-Ljjr, Total was developed and its performance characteristics determined by [facility]. It has not been cleared or approved by the Food and Drug Administration. Result Comment: Conc entration Interpretation Follow-Up < 5 - 50 ug/g Normal None >50 -120 ug/g Borderline Re-evaluate in 4-6 weeks >120 ug/g Abnormal Repeat as clinically indicated Performed at: [facility] [address] [id number] Senior Research Associate: Timoteo Berumen PhD, Phone: [phone] Performed at: [facility] [address] [id number] Senior Research Associate: Benson Osei MD, Phone: [phone] Performed By: #### M 100.0605, M7400.3302, L7000.0300, L7000.0700, M600.5000, L7000.0750 #### [facility] [address] [place], [place], [address] Fecal Fat, Qualitativeon FATS, NEUTRAL Normal Normal . [facility] Comment on above: Order Comment: Test( s) 836859-Cagc, Neutral; 727208-Pbed, Total was developed and its performance characteristics determined by [facility]. It has not been cleared or approved by the Food and Drug Administration. Result Comment: Norm al (<60 Droplets/HPF) Performed By: #### M 100.0605, M7400.3302, L7000.0300, L7000.0700, M600.5000, L7000.0750 #### [facility] [address] [place], [address] FATS, TOTAL Normal Normal . [facility] Comment on above: Order Comment: Test( s) 109532-Oail, Neutral; 409525-Nqqq, Total was developed and its performance characteristics determined by [facility]. It has not been cleared or approved by the Food and Drug Administration. Result Comment: Norm al (<100 Droplets/HPF) Performed By: #### M 100.0605, M7400.3302, L7000.0300, L7000.0700, M600.5000, L7000.0750 #### [facility] [address] [place], [address] L7000.0750on 06-08-2024 P ELASTASE,FECA > 800 Normal >200 [facility] Comment on above: Result Comment: Resu lt Units: ug Elast./g Severe Pancreatic Insufficiency: <100 Moderate Pancreatic Insufficiency: 100 - 200 Normal: >200 Performed at: - [address] [id number] Senior Research Associate: Benson Osei MD, Phone: [phone] Performed By: #### M 100.0605, M7400.3302, L7000.0300, L7000.0700, M600.5000, L7000.0750 #### [facility] [address] [place], [address] Stool Lactoferrin/WBCon 05-10 WBCST Normal Reference Ran ge = Negative Fecal WBC Lactoferrin Negative: No Fecal WBC Lactoferrin present Normal [facility] Comment on above: Performed By: #### M 100.0605, M7400.3302, L7000.0300, L7000.0700, M600.5000, L7000.0750 #### [facility] [address] [place], [address] Amylaseon 06-05-2024 SIMA 52 U/L Normal 25-115 [facility] Comment on above: Performed By: #### L 3300.1000, L501.6710, L3100.3425, L2100.0000, L3100.5017, L101.9900, L3300.1050, L3200.1100, L100.0100, L501.2450, L501.2400, L500.4050, L3200.0500, L509.6000 ####[facility] [address] [place], [address] CBC W/Diff, Automatedon 07-2 Absolute Lymph 1.78 X10 3/uL Normal 0.83-4.51 [facility] Comment on above: Performed By: #### L 3300.1000, L501.6710, L3100.3425, L2100.0000, L3100.5017, L101.9900, L3300.1050, L3200.1100, L100.0100, L501.2450, L501.2400, L500.4050, L3200.0500, L509.6000 ####[facility] [address] [facility], [address] Absolute Neut 2.5 X10 3/uL Normal 2.0-7.7 [facility] Comment on above: Performed By: #### L 3300.1000, L501.6710, L3100.3425, L2100.0000, L3100.5017, L101.9900, L3300.1050, L3200.1100, L100.0100, L501.2450, L501.2400, L500.4050, L3200.0500, L509.6000 ####[facility] [address] [facility], [address] Basophils/100 WBC (Bld) 0.4 % Normal 0-1 [facility] Comment on above: Performed By: #### L 3300.1000, L501.6710, L3100.3425, L2100.0000, L3100.5017, L101.9900, L3300.1050, L3200.1100, L100.0100, L501.2450, L501.2400, L500.4050, L3200.0500, L509.6000 ####[facility] [address] [facility] [place], [address] Eosinophils/100 WBC (Bld) 0.8 % Normal 0-5 [facility] Comment on above: Performed By: #### L 3300.1000, L501.6710, L3100.3425, L2100.0000, L3100.5017, L101.9900, L3300.1050, L3200.1100, L100.0100, L501.2450, L501.2400, L500.4050, L3200.0500, L509.6000 ####[facility] [address] [facility], [address] Erythrocyte distribution width (RBC) [Ratio] 13.6 % Normal 11.6-14.6 [facility] Comment on above: Performed By: #### L 3300.1000, L501.6710, L3100.3425, L2100.0000, L3100.5017, L101.9900, L3300.1050, L3200.1100, L100.0100, L501.2450, L501.2400, L500.4050, L3200.0500, L509.6000 ####[facility] [address] [place], [address] Hematocrit (Bld) [Volume fraction] 34.7 % Low 37-47 [facility] Comment on above: Performed By: #### L 3300.1000, L501.6710, L3100.3425, L2100.0000, L3100.5017, L101.9900, L3300.1050, L3200.1100, L100.0100, L501.2450, L501.2400, L500.4050, L3200.0500, L509.6000 ####[facility] [address] [place], [address] Hemoglobin (Bld) [Mass/Vol] 11.2 g/dL Low 12.0-15.0 [facility] Comment on above: Performed By: #### L 3300.1000, L501.6710, L3100.3425, L2100.0000, L3100.5017, L101.9900, L3300.1050, L3200.1100, L100.0100, L501.2450, L501.2400, L500.4050, L3200.0500, L509.6000 ####[facility] [address] [place], [address] IG% 0.400 Normal 0.0-0.9 [facility] Comment on above: Result Comment: IG% - Immature Granulocytes (promyelocytes, myelocytes and metamyelocytes) > 1% indicates that a LEFT SHIFT is Present. Performed By: #### L 3300.1000, L501.6710, L3100.3425, L2100.0000, L3100.5017, L101.9900, L3300.1050, L3200.1100, L100.0100, L501.2450, L501.2400, L500.4050, L3200.0500, L509.6000 ####[facility] [address] [place], [address] Lymphocytes/100 WBC (Bld) 37.6 % Normal 19-41 [facility] Comment on above: Performed By: #### L 3300.1000, L501.6710, L3100.3425, L2100.0000, L3100.5017, L101.9900, L3300.1050, L3200.1100, L100.0100, L501.2450, L501.2400, L500.4050, L3200.0500, L509.6000 ####[facility] [address] [place], [address] MCH (RBC) [Entitic mass] 29.9 pg Normal 27.0-32.0 [facility] Comment on above: Performed By: #### L 3300.1000, L501.6710, L3100.3425, L2100.0000, L3100.5017, L101.9900, L3300.1050, L3200.1100, L100.0100, L501.2450, L501.2400, L500.4050, L3200.0500, L509.6000 ####[facility] [address] [place], [address] MCHC (RBC) [Mass/Vol] 32.3 g/dL Normal 32-36 [facility] Comment on above: Performed By: #### L 3300.1000, L501.6710, L3100.3425, L2100.0000, L3100.5017, L101.9900, L3300.1050, L3200.1100, L100.0100, L501.2450, L501.2400, L500.4050, L3200.0500, L509.6000 ####[facility] [address] [place], [address] MCV (RBC) [Entitic vol] 92.5 fL Normal 81-99 [facility] Comment on above: Performed By: #### L 3300.1000, L501.6710, L3100.3425, L2100.0000, L3100.5017, L101.9900, L3300.1050, L3200.1100, L100.0100, L501.2450, L501.2400, L500.4050, L3200.0500, L509.6000 ####[facility] [address] [place], [address] Monocytes/100 WBC (Bld) 8.0 % Normal 0-10 [facility] Comment on above: Performed By: #### L 3300.1000, L501.6710, L3100.3425, L2100.0000, L3100.5017, L101.9900, L3300.1050, L3200.1100, L100.0100, L501.2450, L501.2400, L500.4050, L3200.0500, L509.6000 ####[facility] [address] [place], [address] Neutrophils/100 WBC (Bld) 52.8 % Normal 47-70 [facility] Comment on above: Performed By: #### L 3300.1000, L501.6710, L3100.3425, L2100.0000, L3100.5017, L101.9900, L3300.1050, L3200.1100, L100.0100, L501.2450, L501.2400, L500.4050, L3200.0500, L509.6000 ####[facility] [address] [place], [place], [phone] Nucleated RBC (Bld) [#/Vol] 0 10*3/uL Normal 0-5 [facility] Comment on above: Performed By: #### L 3300.1000, L501.6710, L3100.3425, L2100.0000, L3100.5017, L101.9900, L3300.1050, L3200.1100, L100.0100, L501.2450, L501.2400, L500.4050, L3200.0500, L509.6000 ####[facility] [address] [place], [place], [phone] Platelet mean volume (Bld) [Entitic vol] 10.1 fL Normal 6.2-12.0 [facility] Comment on above: Performed By: #### L 3300.1000, L501.6710, L3100.3425, L2100.0000, L3100.5017, L101.9900, L3300.1050, L3200.1100, L100.0100, L501.2450, L501.2400, L500.4050, L3200.0500, L509.6000 ####[facility] [address] [place], [place], [phone] Platelets (Bld) [#/Vol] 186 10*3/uL Normal 150-450 [facility] Comment on above: Performed By: #### L 3300.1000, L501.6710, L3100.3425, L2100.0000, L3100.5017, L101.9900, L3300.1050, L3200.1100, L100.0100, L501.2450, L501.2400, L500.4050, L3200.0500, L509.6000 ####[facility] [address] [place], [address] RBC (Bld) [#/Vol] 3.75 10*6/uL Low 4.2-5.4 [facility] Comment on above: Performed By: #### L 3300.1000, L501.6710, L3100.3425, L2100.0000, L3100.5017, L101.9900, L3300.1050, L3200.1100, L100.0100, L501.2450, L501.2400, L500.4050, L3200.0500, L509.6000 ####[facility] [address] [place], [address] RDW SD 46.4 fl High 35.1-43.9 [facility] Comment on above: Performed By: #### L 3300.1000, L501.6710, L3100.3425, L2100.0000, L3100.5017, L101.9900, L3300.1050, L3200.1100, L100.0100, L501.2450, L501.2400, L500.4050, L3200.0500, L509.6000 ####[facility] [address] [place], [address] WBC (Bld) [#/Vol] 4.7 10*3/uL Normal 4.4-11.0 [facility] Comment on above: Performed By: #### L 3300.1000, L501.6710, L3100.3425, L2100.0000, L3100.5017, L101.9900, L3300.1050, L3200.1100, L100.0100, L501.2450, L501.2400, L500.4050, L3200.0500, L509.6000 ####[facility] [address] [place], [address] CORTISOL SERUMon 06-05-2024 CORTISOL 14.80 ug/dL Normal 3.44-22.45 [facility] Comment on above: Result Comment: Adul t (AM) 5.27 - 22.45 ug/dL Adult (PM) 3.44 - 16.76 ug/dL Please note revised CORTISOL reference range effective 2020. Performed By: #### L 3300.1000, L501.6710, L3100.3425, L2100.0000, L3100.5017, L101.9900, L3300.1050, L3200.1100, L100.0100, L501.2450, L501.2400, L500.4050, L3200.0500, L509.6000 ####[facility] [address] [place], [place], [address] CRPon 06-05-2024 C-REACTIVE PROT < 2.90 Normal 0.0-3.0 [facility] Comment on above: Result Comment: C-Re active Protein (CRP) provides useful information for the diagnosis, therapy and monitoring of inflammatory processes and associated diseases. For the evaluation of Relative Risk for Cardiovascular Disease, a High Sensitivity CRP (HSCRP) should be ordered. Performed By: #### L 3300.1000, L501.6710, L3100.3425, L2100.0000, L3100.5017, L101.9900, L3300.1050, L3200.1100, L100.0100, L501.2450, L501.2400, L500.4050, L3200.0500, L509.6000 ####[facility] [address] [place], [place], [address] Comprehensive Metabolic Prof ilon 06-05-2024 Albumin [Mass/Vol] 3.1 g/dL Low 3.2-5.0 [facility] Comment on above: Performed By: #### L 3300.1000, L501.6710, L3100.3425, L2100.0000, L3100.5017, L101.9900, L3300.1050, L3200.1100, L100.0100, L501.2450, L501.2400, L500.4050, L3200.0500, L509.6000 ####[facility] [address] [place], [place], [phone] Albumin/Globulin [Mass ratio] 0.9 {ratio} Normal 0.9-2.4 [facility] Comment on above: Performed By: #### L 3300.1000, L501.6710, L3100.3425, L2100.0000, L3100.5017, L101.9900, L3300.1050, L3200.1100, L100.0100, L501.2450, L501.2400, L500.4050, L3200.0500, L509.6000 ####[facility] [address] [place], [place], [phone] ALK P 37 U/L Low 45-117 [facility] Comment on above: Performed By: #### L 3300.1000, L501.6710, L3100.3425, L2100.0000, L3100.5017, L101.9900, L3300.1050, L3200.1100, L100.0100, L501.2450, L501.2400, L500.4050, L3200.0500, L509.6000 ####[facility] [address] [place], [place], [phone] ALT [Catalytic activity/Vol] 15 U/L Normal 13-56 [facility] Comment on above: Performed By: #### L 3300.1000, L501.6710, L3100.3425, L2100.0000, L3100.5017, L101.9900, L3300.1050, L3200.1100, L100.0100, L501.2450, L501.2400, L500.4050, L3200.0500, L509.6000 ####[facility] [address] [place], [address] AST [Catalytic activity/Vol] 16 U/L Normal 15-37 [facility] Comment on above: Performed By: #### L 3300.1000, L501.6710, L3100.3425, L2100.0000, L3100.5017, L101.9900, L3300.1050, L3200.1100, L100.0100, L501.2450, L501.2400, L500.4050, L3200.0500, L509.6000 ####[facility] [address] [place], [place], [phone] Bilirubin [Mass/Vol] 0.20 mg/dL Normal 0.20-1.00 [facility] Comment on above: Result Comment: For patients on eltrombopag therapy, use of Dimension [place] TBIL is not recommended. Performed By: #### L 3300.1000, L501.6710, L3100.3425, L2100.0000, L3100.5017, L101.9900, L3300.1050, L3200.1100, L100.0100, L501.2450, L501.2400, L500.4050, L3200.0500, L509.6000 ####[facility] [address] [place], [place], [phone] BUN/CRE 18.3 RATIO Normal 10-20 [facility] Comment on above: Performed By: #### L 3300.1000, L501.6710, L3100.3425, L2100.0000, L3100.5017, L101.9900, L3300.1050, L3200.1100, L100.0100, L501.2450, L501.2400, L500.4050, L3200.0500, L509.6000 ####[facility] [address] [place], [place], [phone] CA,Total 8.3 mg/dL Low 8.5-10.1 [facility] Comment on above: Performed By: #### L 3300.1000, L501.6710, L3100.3425, L2100.0000, L3100.5017, L101.9900, L3300.1050, L3200.1100, L100.0100, L501.2450, L501.2400, L500.4050, L3200.0500, L509.6000 ####[facility] [address] [place], [address] Chloride [Moles/Vol] 108 mmol/L High 98-107 [facility] Comment on above: Performed By: #### L 3300.1000, L501.6710, L3100.3425, L2100.0000, L3100.5017, L101.9900, L3300.1050, L3200.1100, L100.0100, L501.2450, L501.2400, L500.4050, L3200.0500, L509.6000 ####[facility] [address] [place], [address] CO2 [Moles/Vol] 29.0 mmol/L Normal 21.0-32.0 [facility] Comment on above: Performed By: #### L 3300.1000, L501.6710, L3100.3425, L2100.0000, L3100.5017, L101.9900, L3300.1050, L3200.1100, L100.0100, L501.2450, L501.2400, L500.4050, L3200.0500, L509.6000 ####[facility] [address] [place], [address] Creatinine [Mass/Vol] 0.82 mg/dL Normal 0.55-1.02 [facility] Comment on above: Result Comment: The validity of the calculated GFR GFRAA in patients over 70 years has not been determined. Clinical correlation is essential. Performed By: #### L 3300.1000, L501.6710, L3100.3425, L2100.0000, L3100.5017, L101.9900, L3300.1050, L3200.1100, L100.0100, L501.2450, L501.2400, L500.4050, L3200.0500, L509.6000 ####[facility] [address] [place], [address] EST GFR - AA 89 mL/min Normal >60 [facility] Comment on above: Result Comment: Afri can Indonesian GFR Calc Performed By: #### L 3300.1000, L501.6710, L3100.3425, L2100.0000, L3100.5017, L101.9900, L3300.1050, L3200.1100, L100.0100, L501.2450, L501.2400, L500.4050, L3200.0500, L509.6000 ####[facility] [address] [place], [place], [phone] GAP 3 Low 5-15 [facility] Comment on above: Performed By: #### L 3300.1000, L501.6710, L3100.3425, L2100.0000, L3100.5017, L101.9900, L3300.1050, L3200.1100, L100.0100, L501.2450, L501.2400, L500.4050, L3200.0500, L509.6000 ####[facility] [address] [place], [address] GFR/1.73 sq M.predicted among non-blacks MDRD (S/P/Bld) [Vol rate/Area] 74 mL/min/{1.73_m2} Normal >60 [facility] Comment on above: Result Comment: Non- GFR Calc Performed By: #### L 3300.1000, L501.6710, L3100.3425, L2100.0000, L3100.5017, L101.9900, L3300.1050, L3200.1100, L100.0100, L501.2450, L501.2400, L500.4050, L3200.0500, L509.6000 ####[facility] [address] [place], [place], [phone] Globulin (S) [Mass/Vol] 3.4 g/dL Normal 2.2-4.2 [facility] Comment on above: Performed By: #### L 3300.1000, L501.6710, L3100.3425, L2100.0000, L3100.5017, L101.9900, L3300.1050, L3200.1100, L100.0100, L501.2450, L501.2400, L500.4050, L3200.0500, L509.6000 ####[facility] [address] [place], [address] Glucose [Mass/Vol] 158 mg/dL High 74-106 [facility] Comment on above: Result Comment: Fast ing Glucose result greater than or equal to 126 mg/dL suggests DIABETES MELLITUS per A.D.A. criteria. Performed By: #### L 3300.1000, L501.6710, L3100.3425, L2100.0000, L3100.5017, L101.9900, L3300.1050, L3200.1100, L100.0100, L501.2450, L501.2400, L500.4050, L3200.0500, L509.6000 ####[facility] [address] [place], [address] Potassium [Moles/Vol] 3.3 mmol/L Low 3.5-5.1 [facility] Comment on above: Performed By: #### L 3300.1000, L501.6710, L3100.3425, L2100.0000, L3100.5017, L101.9900, L3300.1050, L3200.1100, L100.0100, L501.2450, L501.2400, L500.4050, L3200.0500, L509.6000 ####[facility] [address] [place], [address] Sodium [Moles/Vol] 140 mmol/L Normal 136-145 [facility] Comment on above: Performed By: #### L 3300.1000, L501.6710, L3100.3425, L2100.0000, L3100.5017, L101.9900, L3300.1050, L3200.1100, L100.0100, L501.2450, L501.2400, L500.4050, L3200.0500, L509.6000 ####[facility] [address] [place], [place], [phone] T PROT 6.5 g/dL Normal 6.4-8.2 [facility] Comment on above: Performed By: #### L 3300.1000, L501.6710, L3100.3425, L2100.0000, L3100.5017, L101.9900, L3300.1050, L3200.1100, L100.0100, L501.2450, L501.2400, L500.4050, L3200.0500, L509.6000 ####[facility] [address] [place], [place], [phone] Urea nitrogen [Mass/Vol] 15 mg/dL Normal 7-18 [facility] Comment on above: Performed By: #### L 3300.1000, L501.6710, L3100.3425, L2100.0000, L3100.5017, L101.9900, L3300.1050, L3200.1100, L100.0100, L501.2450, L501.2400, L500.4050, L3200.0500, L509.6000 ####[facility] [address] [place], [place], [phone] Erythrocyte Sed Rateon 06-05 SED RATE < 1 Normal 0-30 [facility] Comment on above: Performed By: #### L 3300.1000, L501.6710, L3100.3425, L2100.0000, L3100.5017, L101.9900, L3300.1050, L3200.1100, L100.0100, L501.2450, L501.2400, L500.4050, L3200.0500, L509.6000 ####[facility] [address] [place], [place], [phone] Gastroenterology Visit Repor ton 06-05-2024 Gastroenterology Visit Report [facility] [address] [place] [address] OFFICE VISIT Date of Service: 06/05/24 MR#: [id number] Acct: [id number] Name: DOM AVILA Rep #: [id number] : 1955 Provider: Carson Alcantar DO Age/Sex: 68/F [place] [facility] [place]: [place]igned Intake Vital Signs 09/11/23 14:30 [...] mg PO DAILY 11/30/22 06/05/24 History release qkjibl-olxwhhlz-ndvhnh e See Rx Instructions PO .COMPLEX 03/04/23 [...] of other medications Atherosclerotic heart disease of kaibab coronary artery without angina pectoris Cardiovascular stress [...] of parathyroidectomy (more content not included)... Normal [facility] Lipaseon 06-05-2024 Lipase [Catalytic activity/Vol] 109 U/L High 13-75 [facility] Comment on above: Result Comment: Rom mendosa note: LIPASE revised reference range effective 23. New Lipase methodology. Expected to produce lower values than the previous assay method. NEW Reference Range: 13 - 75 U/L Performed By: #### L 3300.1000, L501.6710, L3100.3425, L2100.0000, L3100.5017, L101.9900, L3300.1050, L3200.1100, L100.0100, L501.2450, L501.2400, L500.4050, L3200.0500, L509.6000 ####[facility] [address] 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) (01/09/2017), Garibay's cyst of knee, left (03/02/2018), Breast neoplasm, Tis (DCIS), 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 She has a 2.4cm adrenal adenoma @[email or web address], can the referral be faxed to [facility] to see if they have sooner availability? DO Cale Leroy Ashley, [place] 05/24/2024 12:43 PM Signed Referral Faxed Via [facility] RAUL Arambula Jane 05/25/2024 12:27 PM Signed [...] MG DAILY August 23, 2019 3:27pm - wbbwht-qtpdivqy-wifmej e (CREON 36) 36,000-114,000- 180,000 unit delayed [...] 2 diabetes mellitus without com*10/22/2016 Atherosclerosis of kaibab coronary artery with *01/09/2017 S/P angioplasty with stent [Z95.820] 01/09/2017 Meniere disease, right [H81.01] 10/29/2017 H (more content not included)... [facility] Telephone (URUN) DOM AVILA ([id number]) 1955 F Date Time Provider Department 05/23/24 ORI LANDIN During your visit today, we recorded the following information about you: Nicole Madsen MA 05/23/2024 4:04 PM Signed Consult to Endocrinology at [facility] faxed [facility] Nicole Madsen MA Allergies As of [...] MG DAILY August 23, 2019 3:27pm - gyxgjt-lrfsqpez-snyspl e (CREON 36) 36,000-114,000- 180,000 unit delayed [...] 2 diabetes mellitus without com*10/22/2016 Atherosclerosis of kaibab coronary artery with *01/09/2017 S/P angioplasty with [...] Status:Closed by NICOLE MADSEN on 05/23/24 Normal [facility] Urinalysis complete panel (U )Ordered By: Tammi Shaver on 05-23-2024 Bacteria LM.HPF (Urine sed) [#/Area] Moderate Abnormal None Seen /HPF [facility] Bilirubin Ql (U) Negative Negative [facility] Clarity (Unsp spec) Clear Clear [facility] Color (U) Yellow Yellow [facility] Epithelial cells LM.HPF (Urine sed) [#/Area] Many /HPF [facility] Glucose Test strip (U) [Mass/Vol] Negative Negative [facility] Hemoglobin Ql (U) Negative Negative [facility] Interpretation and review of laboratory results Abnormal [facility] Ketones Ql (U) Negative Negative [facility] Leukocyte esterase Test strip Ql (U) 2+ Abnormal Negative [facility] Nitrite Ql (U) Negative Negative [facility] pH (U) 6.0 [pH] 5.0 - 8.0 [facility] Protein (U) [Mass/Vol] Negative Negative [facility] RBC LM.HPF (Urine sed) [#/Area] 3-5 /HPF Abnormal 0-3 /HPF [facility] Specific gravity (U) [Rel density] 1.015 1.005 - 1.030 [facility] Urobilinogen Ql (U) 0.2 EU/dL 0.2-1.0 EU/dL [facility] WBC LM.HPF (Urine sed) [#/Area] 11-25 /HPF Abnormal 0-5 /HPF [facility] Urinalysis complete panel (U )on 05-23-2024 Bacteria LM.HPF (Urine sed) [#/Area] Moderate Abnormal None Seen [facility] Comment on above: Order Comment: Speci men Type: URINE SPECIMENOrdering Facility: [facility] Address: [address] [place] [address] Performed By: #### 2 4356-8 ####[facility] LABCLIA [id number] [place] [address] [place] Bilirubin Ql (U) Negative Normal Negative [facility] Comment on above: Order Comment: Speci men Type: URINE SPECIMENOrdering Facility: [facility] Address: [address] [place] [address] Performed By: #### 2 4356-8 ####[facility] LABIA [id number] [place] [address] [place] Clarity (Unsp spec) Clear Normal Clear [facility] Comment on above: Order Comment: Speci men Type: URINE SPECIMENOrdering Facility: [facility] Address: [address] [place] [address] Performed By: #### 2 4356-8 ####[facility] [id number] [place] [address] [place] Color (U) Yellow Normal Yellow [facility] Comment on above: Order Comment: Speci men Type: URINE SPECIMENOrdering Facility: [facility] Address: [address] [place] [address] Performed By: #### 2 4356-8 ####[facility] LABIA [id number] [place] [address] [place] Epithelial cells LM.HPF (Urine sed) [#/Area] Many Normal [facility] Comment on above: Order Comment: Speci men Type: URINE SPECIMENOrdering Facility: [facility] Address: [address] [place] [address] Performed By: #### 2 4356-8 ####[facility] LABIA [id number] [place] [address] [place] Glucose Test strip (U) [Mass/Vol] Negative Normal Negative [facility] Comment on above: Order Comment: Speci men Type: URINE SPECIMENOrdering Facility: [facility] Address: [address] [place] [address] Performed By: #### 2 4356-8 ####[facility] LABIA [id number] [place] [address] [place] Hemoglobin Ql (U) Negative Normal Negative [facility] Comment on above: Order Comment: Speci men Type: URINE SPECIMENOrdering Facility: [facility] Address: [address] [place] [address] Performed By: #### 2 4356-8 ####[facility] LABCLIA [id number] [place] [address] [place] Ketones Ql (U) Negative Normal Negative [facility] Comment on above: Order Comment: Speci men Type: URINE SPECIMENOrdering Facility: [facility] Address: [address] [place] [address] Performed By: #### 2 4356-8 ####[facility] LABIA [id number] [address] Leukocyte esterase Test strip Ql (U) 2+ Abnormal Negative [facility] Comment on above: Order Comment: Speci men Type: URINE SPECIMENOrdering Facility: [facility] Address: [address] [place] [address] Performed By: #### 2 4356-8 ####[facility] LABCLIA [id number] [place] [address] [place] Nitrite Ql (U) Negative Normal Negative [facility] Comment on above: Order Comment: Speci men Type: URINE SPECIMENOrdering Facility: [facility] Address: [address] [place] [address] Performed By: #### 2 4356-8 ####[facility] LABCLIA [id number] [place] [address] [place] pH (U) 6.0 [pH] Normal 5.0-8.0 [facility] Comment on above: Order Comment: Speci men Type: URINE SPECIMENOrdering Facility: [facility] Address: [address] [place] [address] Performed By: #### 2 4356-8 ####[facility] LABCLIA [id number] [place] [address] [place] Protein (U) [Mass/Vol] Negative Normal Negative [facility] Comment on above: Order Comment: Speci men Type: URINE SPECIMENOrdering Facility: [facility] Address: [address] [place] [address] Performed By: #### 2 4356-8 ####[facility] LABIA [id number] [place] [address] [place] RBC LM.HPF (Urine sed) [#/Area] 3-5 /HPF Abnormal 0-3 /HPF [facility] Comment on above: Order Comment: Speci men Type: URINE SPECIMENOrdering Facility: [facility] Address: [address] [place] [address] Performed By: #### 2 4356-8 ####[facility] [id number] [place] [address] [place] Specific gravity (U) [Rel density] 1.015 Normal 1.005-1.030 [facility] Comment on above: Order Comment: Speci men Type: URINE SPECIMENOrdering Facility: [facility] Address: [address] [place] [address] Performed By: #### 2 4356-8 ####[facility] [id number] [address] Urobilinogen Ql (U) 0.2 EU/dL Normal 0.2-1.0 EU/dL [facility] Comment on above: Order Comment: Speci men Type: URINE SPECIMENOrdering Facility: [facility] Address: [address] [place] [address] Performed By: #### 2 4356-8 ####[facility] [id number] [address] [place] WBC LM.HPF (Urine sed) [#/Area] 11-25 /HPF Abnormal 0-5 /HPF [facility] Comment on above: Order Comment: Speci men Type: URINE SPECIMENOrdering Facility: [facility] Address: [address] [place] [address] Performed By: #### 2 4356-8 ####[facility] [id number] [place] [id number] [place] Bacteria Ur Culton Bacteria identified Cx Nom (U) ORGANISM ID: 1 10,000 -<50,000 CFU/ml Normal urogenital [place] Normal [facility] Comment on above: Performed By: #### 6 30-4 #### [facility] CLIA [id number] [address] [place], [place] [address] [id number] [place] [address] [place] CNOVon 04-25-2024 CNOV Office Visit (URUN) DOM AVILA ([id number]) 1955 F Date Time Provider Department 04/25/24 8:00 AM ORI LANDIN During your visit today, we recorded the following information about you: Pulse Blood pressure 60/minute 156/73 Lachelle Lemons 04/25/2024 9:28 AM Signed PVR 0 ml Ori Landin DO 04/25/2024 9:28 AM Signed 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), Colon polyp (2011), Controlled type 2 diabetes mellitus without complication, without long-term current use of insulin ([facility]) (10/22/2016), De Quervain's tenosynovitis, left (07/31/2019), Diabetic eye exam ([facility]) (01/16/2016), Ductal carcinoma in situ [...] includes the following prescription(s): doxycycline, coenzyme q10, jsxpsx-dzxqmepi-zipaja e, lisinopril, estradiol, tamoxifen, pioglitazone, omeprazole, calcium citrate-vitamin d3, ezetimibe, ammonium lactate, clobetasol propionate, acetaminophen, nitroglycerin subli (more content not included)... Normal [facility] UA DIP, URINE (POC)on 2023 BILIRUBIN UA (POCT) Negative Negative [facility] CLARITY UA (POCT) Clear [facility] COLOR UA (POCT) Yellow [facility] GLUCOSE UA (POCT) Negative Negative mg/dL [facility] Hemoglobin Ql (U) Negative Negative [facility] Interpretation and review of laboratory results Abnormal [facility] KETONE UA (POCT) Negative Negative mg/dL [facility] LEUKOCYTES UA (POCT) Moderate Abnormal Negative [facility] NITRITE UA (POCT) Negative Negative [facility] PH UA (POCT) 6.0 4.5 - 8.0 [facility] Protein Ql (U) Negative Negative mg/dL [facility] SPECIFIC GRAVITY UA (POCT) 1.010 1.005 - 1.030 [facility] UROBILINOGEN UA (POCT) 0.2 Normal E.U./d L [facility] Location:[facility], [address] [place] [address] Dr. Anne [facility], [place], [place], [address] [place] [address] POINT OF CARE [facility] Urinalysis complete panel (U )Ordered By: Yennifer Veliz on 04-25-2024 Bilirubin Ql (U) Negative Negative [facility] Clarity (Unsp spec) Clear Clear [facility] Color (U) Yellow Yellow [facility] Epithelial cells LM.HPF (Urine sed) [#/Area] Few Abnormal None Seen /HPF [facility] Glucose Test strip (U) [Mass/Vol] Negative Negative [facility] Hemoglobin Ql (U) Negative Negative [facility] Interpretation and review of laboratory results Abnormal [facility] Ketones Ql (U) Negative Negative [facility] Leukocyte esterase Test strip Ql (U) 3+ Abnormal Negative [facility] Nitrite Ql (U) Negative Negative [facility] pH (U) 6.0 [pH] 5.0 - 8.0 [facility] Protein (U) [Mass/Vol] Negative Negative [facility] RBC LM.HPF (Urine sed) [#/Area] 0-3 /HPF 0-3 /HPF [facility] Specific gravity (U) [Rel density] 1.010 1.005 - 1.030 [facility] Urobilinogen Ql (U) 0.2 EU/dL 0.2-1.0 EU/dL Cl [facility] WBC LM.HPF (Urine sed) [#/Area] 11-25 /HPF Abnormal 0-5 /HPF [facility] Urinalysis complete panel (U )on 04-25-2024 Bilirubin Ql (U) Negative Normal Negative [facility] Comment on above: Order Comment: Speci men Type: URINE SPECIMENOrdering Facility: [facility] Address: [address] [place] [address] Performed By: #### 2 4356-8 ####[facility] LABCLIA [id number] [place] [address] [place] Clarity (Unsp spec) Clear Normal Clear [facility] Comment on above: Order Comment: Speci men Type: URINE SPECIMENOrdering Facility: [facility] Address: [address] [place] [address] Performed By: #### 2 4356-8 ####[facility] LABIA [id number] [place] [address] [place] Color (U) Yellow Normal Yellow [facility] Comment on above: Order Comment: Speci men Type: URINE SPECIMENOrdering Facility: [facility] Address: [address] [place] [address] Performed By: #### 2 4356-8 ####[facility] LABCLIA [id number] [address] [place] Epithelial cells LM.HPF (Urine sed) [#/Area] Few Normal [facility] Comment on above: Order Comment: Speci men Type: URINE SPECIMENOrdering Facility: [facility] Address: [address] [place] [address] Result Comment: Few Performed By: #### 2 4356-8 ####[facility] LABCLIA [id number] [address] [place] Glucose Test strip (U) [Mass/Vol] Negative Normal Negative [facility] Comment on above: Order Comment: Speci men Type: URINE SPECIMENOrdering Facility: [facility] Address: [address] [place] [address] Performed By: #### 2 4356-8 ####[facility] LABCLIA [id number] [place] [address] [place] Hemoglobin Ql (U) Negative Normal Negative [facility] Comment on above: Order Comment: Speci men Type: URINE SPECIMENOrdering Facility: [facility] Address: [address] [place] [address] Performed By: #### 2 4356-8 ####[facility] LABCLIA [id number] [address] STATES [facility] Ketones Ql (U) Negative Normal Negative [facility] Comment on above: Order Comment: Speci men Type: URINE SPECIMENOrdering Facility: [facility] Address: [address] [place] [address] Performed By: #### 2 4356-8 ####[facility] LABIA [id number] [address] Leukocyte esterase Test strip Ql (U) 3+ Abnormal Negative [facility] Comment on above: Order Comment: Speci men Type: URINE SPECIMENOrdering Facility: [facility] Address: [address] [place] [address] Performed By: #### 2 4356-8 ####[facility] LABIA [id number] [place] [address] [place] Nitrite Ql (U) Negative Normal Negative [facility] Comment on above: Order Comment: Speci men Type: URINE SPECIMENOrdering Facility: [facility] Address: [address] [place] [address] Performed By: #### 2 4356-8 ####[facility] LABIA [id number] [place] [address] [place] pH (U) 6.0 [pH] Normal 5.0-8.0 [facility] Comment on above: Order Comment: Speci men Type: URINE SPECIMENOrdering Facility: [facility] Address: [address] [place] [address] Performed By: #### 2 4356-8 ####[facility] LABIA [id number] [place] [address] [place] Protein (U) [Mass/Vol] Negative Normal Negative [facility] Comment on above: Order Comment: Speci men Type: URINE SPECIMENOrdering Facility: [facility] Address: [address] [place] [address] Performed By: #### 2 4356-8 ####[facility] [id number] [address] STATES [facility] RBC LM.HPF (Urine sed) [#/Area] 0-3 /HPF Normal 0-3 /HPF [facility] Comment on above: Order Comment: Speci men Type: URINE SPECIMENOrdering Facility: [facility] Address: [address] [place] [address] Performed By: #### 2 4356-8 ####[facility] [id number] [address] STATES [facility] Specific gravity (U) [Rel density] 1.010 Normal 1.005-1.030 [facility] Comment on above: Order Comment: Speci men Type: URINE SPECIMENOrdering Facility: [facility] Address: [address] [place] [address] Performed By: #### 2 4356-8 ####[facility] [id number] [address] Urobilinogen Ql (U) 0.2 EU/dL Normal 0.2-1.0 EU/dL [facility] Comment on above: Order Comment: Speci men Type: URINE SPECIMENOrdering Facility: [facility] Address: [address] [place] [address] Performed By: #### 2 4356-8 ####[facility] [id number] [address] [place] WBC LM.HPF (Urine sed) [#/Area] 11-25 /HPF Abnormal 0-5 /HPF [facility] Comment on above: Order Comment: Speci men Type: URINE SPECIMENOrdering Facility: [facility] Address: [address] [place] [address] Performed By: #### 2 4356-8 ####[facility] [id number] [place] [address] [place] Cardiology Visit Reporton Cardiology Visit Report [facility] [address] [place] [address] OFFICE VISIT Date of Service: 04/21/24 MR#: [id number] Acct: [id number] Name: DOM AVILA Rep #: [id number] : 1955 Provider: Dr. Karsten Zarate MD Age/Sex: 68/F Location: [facility] Status: Signed HPI HPI History of [...] Visit Reasons: 1 YR F/U (PFM PT) Exchange Administrator Required: No Accompanied by: None Is patient in pain?: No Allergies lovastatin Allergy (Intermediate, Verified 04/21/24 13:37) Other rosuvastatin (From Crestor) Allergy (Intermediate, Verified 04/21/24 13:37) Other ticagrelor (From Brilinta) Allergy (Intermediate, Verified 04/21/24 13:37) Shortness of breath atorvastatin Allergy (Unknown, Verified 04/21/24 13:37) myalgia hydrocodone Allergy (Verified 04/21/24 13:37) Hives cephalexin monohydrate (From Dashbell) Adverse Reaction (Verified 04/21/24 13:37) Other pravastatin [...] mg PO DAILY 11/30/22 04/21/24 History release [id number]-qgxblj e See Rx Instructions PO .COMPLEX 03/04/23 [...] pressure) dependence (more content not included)... Normal [facility] ALBUMIN/CREATININE RATIO, UR INEon 04-17-2024 Albumin DL <= 20 mg/L (U) [Mass/Vol] mg/L mg/L [facility] Albumin/Creatinine (U) [Mass ratio] mg/g NINF - 30 mg/g [facility] Comment on above: Adult Male and [...] [Mass/Vol] 100.9 mg/dL 20.0 - 300.0 mg/dL [facility] CBC W Auto Differential pane l (Bld)on 04-17-2024 Basophils (Bld) [#/Vol] [facility] Basophils/100 WBC (Bld) 0.4 % [facility] Differential cell count method Nom (Bld) Auto [facility] Eosinophils (Bld) [#/Vol] 0.07 10*3/uL [facility] Eosinophils/100 WBC (Bld) 1.3 % [facility] Erythrocyte distribution width (RBC) [Ratio] 14.2 % 11.5 - 15.0 % [facility] Hematocrit (Bld) [Volume fraction] 38.3 % 36.0 - 46.0 % [facility] Hemoglobin (Bld) [Mass/Vol] 12.4 g/dL 11.5 - 15.5 g/dL [facility] Immature granulocytes (Bld) [#/Vol] [facility] Immature granulocytes/100 WBC (Bld) 0.2 % [facility] Lymphocytes (Bld) [#/Vol] 1.82 10*3/uL [facility] Lymphocytes/100 WBC (Bld) 34.9 % [facility] MCH (RBC) [Entitic mass] 30.7 pg 26.0 - 34.0 pg [facility] MCHC (RBC) [Mass/Vol] 32.4 g/dL 30.5 - 36.0 g/dL [facility] MCV (RBC) [Entitic vol] 94.8 fL 80.0 - 100.0 fL [facility] Monocytes (Bld) [#/Vol] 0.47 10*3/uL [facility] Monocytes/100 WBC (Bld) 9.0 % [facility] Neutrophils (Bld) [#/Vol] 2.83 10*3/uL [facility] Neutrophils/100 WBC (Bld) 54.2 % [facility] Nucleated RBC (Bld) [#/Vol] [facility] Nucleated RBC/100 WBC (Bld) [Ratio] 0.0 % /100 WBC [facility] Platelet mean volume (Bld) [Entitic vol] 9.9 fL 9.0 - 12.7 fL [facility] Platelets (Bld) [#/Vol] 204 10*3/uL [facility] RBC (Bld) [#/Vol] 4.04 10*6/uL 3.90 - 5.2 0 m/uL [facility] WBC (Bld) [#/Vol] 5.22 10*3/uL [facility] Comprehensive metabolic 2000 panelon 04-17-2024 Albumin [Mass/Vol] 3.8 g/dL Low 3.9 - 4.9 g/dL Cl [facility] ALP [Catalytic activity/Vol] 37 U/L 34 - 123 U/L [facility] ALT [Catalytic activity/Vol] 11 U/L 7 - 38 U/L [facility] Anion gap [Moles/Vol] 11 mmol/L 8 - 15 mmol/L [facility] AST [Catalytic activity/Vol] 20 U/L 13 - 35 U/L [facility] Bilirubin [Mass/Vol] 0.2 mg/dL 0.2 - 1 .3 mg/dL [facility] Calcium [Mass/Vol] 8.9 mg/dL 8.5 - 10. 2 mg/dL [facility] Chloride [Moles/Vol] 105 mmol/L 98 - 10 7 mmol/L [facility] CO2 [Moles/Vol] 26 mmol/L 22 - 30 mmol/L [facility] Creatinine [Mass/Vol] 0.78 mg/dL 0.58 - 0.96 mg/dL [facility] GFR/1.73 sq M.predicted among non-blacks MDRD (S/P/Bld) [Vol rate/Area] 84 mL/min/{1.73_m2} - PINF [facility] Comment on above: Estimated Glomerular Filtration [...] 119 mg/dL High 74 - 99 mg/dL [facility] Comment on above: The [place] Diabete s Association (ADA) provides guidance for [...] Standards of Medical Care in Diabetes 2016, [place] Diabetes Association. Diabetes Care. 2016.39(Suppl 1). Potassium [Moles/Vol] 4.1 mmol/L 3.7 - 5.1 mmol/L [facility] Protein [Mass/Vol] 6.3 g/dL 6.3 - 8.0 g/dL [facility] Sodium [Moles/Vol] 142 mmol/L 136 - 144 mmol/L [facility] Urea nitrogen [Mass/Vol] 11 mg/dL 7 - 21 mg/dL [facility] HbA1c (Bld)on 04-17-2024 Average glucose Estimated from glycated hemoglobin (Bld) [Mass/Vol] 166 mg/dL [facility] Comment on above: eAG: (Estimated aver age glucose) is a calculated value from HgbA1c and is inbound call center representative of the average blood glucose level in the last 2-3 month period. HbA1c (Bld) [Mass fraction] 7.4 % High 4.3 - 5.6 % [facility] Comment on above: [place] Diabetes As sociation guidelines indicate that patients with HgbA1c in the range 5.7-6.4% are at increased risk for development of diabetes, and intervention by lifestyle modification may be beneficial. HgbA1c greater or equal to 6.5% is considered diagnostic of diabetes. Interpretation and review of laboratory results Abnormal [facility] LIPID PANEL, NONFASTINGon Cholesterol [Mass/Vol] 153 mg/dL NINF - 200 mg/dL [facility] Comment on above: <200 mg/dL, Desirabl e 200-239 mg/dL, Borderline high >239 mg/dL, High HDL Cholesterol, Nonfasting 36 mg/dL Low 39 - PINF mg/dL [facility] Comment on above: 40-59 mg/dL, Accepta ble >59 mg/dL, High: Negative risk factor for coronary heart disease <40 mg/dL, Low: Positive risk factor for coronary heart disease LDL Cholesterol, Nonfasting 91 mg/dL NINF - 100 mg/dL [facility] Comment on above: <100 mg/dL, Optimal 100-129 mg/dL, Near optimal/above optimal 130-159 mg/dL, Borderline high 160-189 mg/dL, High >189 mg/dL, Very high Secondary prevention optimal LDL Cholesterol levels are recommended to be < 70 mg/dL LDL/HDL Ratio, Nonfasting 2.53 mg/dL NINF - 2.54 mg/dL [facility] Comment on above: Reference: 1. National Cholesterol Education Program ATP III Guideline At-A-Glance Quick Desk Reference: National Heart, Lung, and Blood [place]. National Institutes of Health. 2001: NIH Publication No. 01-3305. 2. An International Atherosclerosis Society position paper: global recommendations for the management of dyslipidemia: executive summary, Atherosclerosis. 2014: 232(2):410-413. Non HDL Cholesterol, Nonfasting 117 mg/dL NINF - 130 mg/dL [facility] Comment on above: <130 mg/dL, Optimal 130-159 mg/dL, Near optimal/above optimal 160-189 mg/dL, Borderline high 190-219 mg/dL, High >219 mg/dL, Very high Secondary prevention optimal non HDL Cholesterol levels are recommended to be <100 mg/dL Total Chol/HDL Ratio, Nonfasting 4.25 mg/dL NINF - 5.10 mg/dL [facility] Triglycerides, Nonfasting 132 mg/dL NINF - 150 mg/dL [facility] Comment on above: <150 mg/dL, Normal 150-199 mg/dL, Borderline high 200-499 mg/dL, High >499 mg/dL, Very high VLDL Cholesterol, Nonfasting 26 mg/dL NINF - 30 mg/dL [facility] No Panel Informationon 04-17 Interpretation and review of laboratory results Abnormal [facility] Urinalysis complete panel (U )on 04-17-2024 Bacteria LM.HPF (Urine sed) [#/Area] Negative Negative /HPF [facility] Bilirubin Ql (U) Negative Negative [facility] Clarity (Unsp spec) Cloudy Abnormal Clear [facility] Color (U) Yellow Yellow [facility] Epithelial cells LM.HPF (Urine sed) [#/Area] Moderate /HPF [facility] Glucose Test strip (U) [Mass/Vol] Negative Negative [facility] Hemoglobin Ql (U) Negative Negative [facility] Hyaline casts (Urine sed) [#/Area] 0 /[LPF] 0 /LPF [facility] Interpretation and review of laboratory results Abnormal [facility] Ketones Ql (U) Negative Negative [facility] Leukocyte esterase Test strip Ql (U) 2+ Abnormal Negative [facility] Nitrite Ql (U) Negative Negative [facility] pH (U) 6.0 [pH] NINF - 8.5 [facility] Protein (U) [Mass/Vol] Negative Negative [facility] RBC LM.HPF (Urine sed) [#/Area] 11-20 /HPF Abnormal 0-2 /HPF [facility] Specific gravity (U) [Rel density] 1.017 1.005 - 1.030 [facility] Urobilinogen Ql (U) 0.2 EU/dL 0.2-1.0 EU/dL [facility] WBC LM.HPF (Urine sed) [#/Area] 0-5 /HPF 0-5 /HPF [facility] Result rechecked This test was developed and its performance characteristics determined by [facility] [place] ([facility]). It has not been cleared or approved by the FDA. [facility] is regulated under CLIA as qualified to perform high-complexity testing. This test is used for clinical purposes. It should not be regarded as investigational or for research. [facility] COVID & INFLUENZA A/B & RSV NAAT, ROUTINEon 03-23-2024 FLUAV RNA MICHAEL+probe Ql (Unsp spec) Not detected Not Detected [facility] FLUBV RNA MICHAEL+probe Ql (Unsp spec) Not detected Not Detected [facility] Interpretation and review of laboratory results Normal [facility] RSV A RNA MICHAEL+probe Ql (Unsp spec) Not detected Not Detected [facility] SARS-CoV-2 (COVID-19) RNA MICHAEL+probe Ql (Resp) Not detected See comment [facility] Comment on above: The method used is R T-PCR or an equivalent NAAT method. Reference Range (the expected result in uninfected individuals): Not detected For upper respirator y tract samples, this test has been authorized by FDA under Emergenecy Use Authorization (EUA). For lower respiratory tract samples, this test was developed and its performance characteristics determined by [facility] ([facility]). It has not been cleared or approved by the FDA. [facility] is regulated under CLIA as qualified to perform high-complexity testing. This test is used for clinical purposes. It should not be regarded as investigational or for research. Test performed by [facility], [facility], [address], [place], [place] [address]. [facility] STREP A MOLECULAR (POC)on Procedural Control Valid [facility] Strep A (POCT) Negative Negative [facility] DBT Breast - bilateral scree rajigon 03-09-2024 IMPRESSION: BENIGN FINDING There is no mammographic evidence of malignancy. A 1 year screening mammogram is recommended. Paresh grimaldo/christian:03/09/2024 21:41:09 Road Gang Supervisor(s): Debby Lin RT(R)(M), [facility] letter sent: Normal over 40 [...] Health, Family Medicine, and Medical/Surgical Oncology, the [facility] has carefully reviewed the data and [...] their providers when to stop screening mammograms. Spinner Hydraulic: Christian Transcribe Date/Time: Mar 09 2024 8:22A Dictated by: PARESH HWANG MD This examination was interpreted and the report reviewed and electronically signed by: PARESH HWANG MD on Mar 09 2024 9:41PM [facility] DIVISION OF RADIOLOGY * * *Final Report* * * DATE OF EXAM: Mar 09 2024 8:44AM [id number] - GUILLERMINA SCREENING W ANGELA / PROCEDURE REASON: multiple diagnoses * * * * Physician Interpretation * * * * RESULT: #[id number] - GUILLERMINA SCREENING W ANGELA BILATERAL DIGITAL [...] mammogram, 02/23/2022 mammogram, and 02/21/2021 mammogram - [facility]. There are scattered areas of fibroglandular density. There are benign post operative findings in the left breast. No significant masses, calcifications, or other findings are seen in either breast. There has been no significant interval change. DIVISION OF RADIOLOGY Provider, [facility] - 03/09/2024 * * *Final Report* * * DATE OF EXAM: Mar 09 2024 8:44AM [id number] - [facility] SCREENING W ANGELA / PROCEDURE REASON: multiple diagnoses * * * * Physician Interpretation * * * * RESULT: #[id number] - [facility] SCREENING W ANGELA BILATERAL DIGITAL SCREENING MAMMOGRAM [...] mammogram, 02/23/2022 mammogram, and 02/21/2021 mammogram - [facility]. There are scattered areas of fibroglandular density. There are benign post operative findings in the left breast. No significant masses, calcifications, or other findings are seen in either breast. There has been no significant interval change. IMPRESSION IMPRESSION: BENIGN FINDING There is no mammographic evidence of malignancy. A 1 year screening mammogram is recommended. Paresh grimaldo/christian:03/09/2024 21:41:09 Road Gang Supervisor(s): Debby Lin RT(R)(M), [facility] letter sent: Normal over 40 [...] Health, Family Medicine, and Medical/Surgical Oncology, the [facility] has carefully reviewed the data and [...] their providers when to stop screening mammograms. Spinner Hydraulic: Christian Transcribe Date/Time: Mar 09 2024 8:22A Dictated by: PARESH HWANG MD This examination was interpreted and the report reviewed and electronically signed by: PARESH HWANG MD on Mar 09 2024 9:41PM EST [facility] Radiology Study observation (narrative) [facility] DBT Breast - bilateral scree ningOrdered By: [facility] Provider on 03-09-2024 [facility] Microscopic observation Gram stain Nom (Vag fld)on 01-19-2024 Bacterial Vaginosis BACTERIAL VAGINOSIS RESULT: Stain results consistent with normal vaginal hol[place]. [facility] Bacterial Vaginosis No Yeast observed [facility] Bacterial Vaginosis No Polymorphonuclear Leukocytes [facility] UA DIP, URINE (POC)on 2023 BILIRUBIN UA (POCT) Negative Negative [facility] CLARITY UA (POCT) Clear [facility] COLOR UA (POCT) Yellow [facility] GLUCOSE UA (POCT) Negative Negative mg/dL [facility] Hemoglobin Ql (U) Negative Negative [facility] KETONE UA (POCT) Negative Negative mg/dL [facility] LEUKOCYTES UA (POCT) Small Abnormal Negative [facility] NITRITE UA (POCT) Negative Negative [facility] PH UA (POCT) 5.5 4.5 - 8.0 [facility] Protein Ql (U) Negative Negative mg/dL [facility] SPECIFIC GRAVITY UA (POCT) 1.010 1.005 - 1.030 [facility] UROBILINOGEN UA (POCT) 0.2 E.U./dL Normal E.U./ dL [facility] MRCP Abdomen without Contras ton 01-03-2024 MRCP Abdomen without Contrast [facility] Services [address] [place] [id number] MRCP Abdomen without Contrast MR#: [id number] Acct: [id number] Name: DOM AVILA Rep #: [id number] : 1955 F 68 From: Tony Condon MD PCP: Dr. Clifton Hung MD Status: DEP CLI Study: MRCP Abdomen without Contrast Date of Exam: Exam# [id number] Ordering Dr: Carson Alcantar DO ADDENDUM by Dr. Tony Condon MD on 01/27/24 at 1059 ====== ADDENDUM ====== [id number] Report correction: Pancreas resection should state: Pancreas [...] Hung MD; Carson Alcantar DO * Signed [id number] EXAM: MR ABDOMEN WITHOUT INTRAVENOUS CONTRAST, MRCP [...] Dr. Clifton Hung MD; Carson Alcantar DO [employer]: Signed Normal [facility] Emergency Department Summary on 12-28-2023 Emergency Department Summary [facility] Medical Records Department [address] [place] [address] Emergency Department Summary 12/28/23 MR#: [id number] Acct: [id number] Name: DOM AVILA Rep #: [id number] : 1955 68 From: Victor M Hernandez [...] illicit substances or excessive stimulant use PFSH [facility] Medical History Anxiety Arthritis Atherosclerotic heart disease of kaibab coronary artery without angina pectoris Breast cancer, [...] PO DAILY 11/30/22 [History Last Taken Unknown] ktaecx-wcdeovzg-lqbrun e 36,000-114,000-180,000 unit capsule,delay rel (Creon) See [...] History Mother Cancer pancreatic cancer Father , [place] age 20's (premature CAD), 3 vessel CABG (more content not included)... Normal [facility] Chest 1 View (Portable)on Chest 1 View (Portable) [facility] Imaging Services [address] [place] [address] Chest 1 View (Portable) MR#: [id number] Acct: [id number] Name: DOM AVILA Rep #: [id number] : 1955 F 68 From: Reji xiong MD PCP: Dr. Clifton Hung MD Status: REG ER Study: Chest 1 View (Portable) Date of Exam: 12/22/23 Exam# [id number] Ordering Dr: Caro Pedro MD [id number] STUDY: X-RAY CHEST REASON FOR EXAM: Female, [...] 14:33 EST Reading Location ID and State: [facility] / [place] , Service support , CC: Dr. Clifton Hung MD; Dr. Caro Pedro MD Spinner [employer]dra[employer]: Signed Normal [facility] Emergency Department Summary on 12-22-2023 Emergency Department Summary [facility] Medical Records Department [address] [place] [address] Emergency Department Summary 12/22/23 MR#: [id number] Acct: [id number] Name: DOM AVILA Rep #: [id number] : 1955 68 From: Caro Pedro MD [...] mild diarrhea but no nausea or vomiting. [facility] Medical History Anxiety Arthritis Atherosclerotic heart disease of kaibab coronary artery without angina pectoris Breast cancer, [...] PO DAILY 11/30/22 [History Last Taken Unknown] ztjdax-zomkktuz-wwtwcq e 36,000-114,000-180,000 unit capsule,delay rel (Creon) See [...] History Mother Cancer pancreatic cancer Father , [place] age 20's (premature CAD), 3 vessel CABG, hyperlipidemia, CHf Myocardial infarction CAD (coronary artery disease) Brother Cancer lung cancer Surgical History Ductal carcinoma in situ (DCIS) of left breast History of bunionectomy of left great toe History of cardiac catheterization ( 10/12/18) History of carpal tunne (more content not included)... Normal [facility] Laboratory - Microbiology an d Antimicrobial susceptibilityOrdered By: Caro Pedro on 12-22-2023 SARS-CoV-2 (COVID-19) RNA MICHAEL+probe Ql (Unsp spec) Influenzae A [facility] M100.678on 12-22-2023 M100.678 RESULTS CALLED TO Vel TAYLOR 12/22/23 1455 [place] Lepe. REPORT READ BACK BY SANDRA. COV + FLU + RSV PCR Copy of report sent to Infection Control Printer [id number] 12/22/23 8951 RADHA. COV + FLU + RSV PCR Normal Reference Range = Negative COV + FLU + RSV PCR GeneXpert Instrument, PCR method SARS-CoV-2 (COVID 19) Negative INFLUENZA A Positive A INFLUENZA A Positive A RSV PCR Negative FLUA Normal [facility] Comment on above: Performed By: #### M 100.678 ####[facility] [address] [place], [place], [address] Carbohydrate AG 19-9on 12-10 CA 19-9 38 U/mL High 0-35 [facility] Comment on above: Result Comment: [employer] Electrochemiluminescence Immunoassay (ECLIA) Values obtained with different assay methods or kits cannot be used interchangeably. Results cannot be interpreted as absolute evidence of the presence or absence of malignant disease. Performed at: [address] [id number] Senior Research Associate: Timoteo Berumen PhD, Phone: [phone] Performed By: #### L 3100.5020, L501.2450, L501.2400 ####[facility] [address] [place], [address] Amylaseon 12-08-2023 SIMA 59 U/L Normal - [facility] Comment on above: Performed By: #### L 3100.5020, L501.2450, L501.2400 ####[facility] [address] [place], [place], [address] Basophil percentageOrdered B y: Carson Alcantar on 12-08-2023 Amylase [Catalytic activity/Vol] 59 U/L -115 [facility] Laboratory - Chemistry and C hemistry - challengeOrdered By: Carson Alcantar on 12-08-2023 Lipase [Catalytic activity/Vol] 124 U/L [facility] Comment on above: Please note:LIPASE r evised reference range effective 23. New Lipase methodology. Expected to produce lower values than the previous assay method. NEW Reference Range: 13 - 75 U/L Lipaseon 12-08-2023 Lipase [Catalytic activity/Vol] 124 U/L High [facility] Comment on above: Result Comment: Rom mendosa note: LIPASE revised reference range effective 23. New Lipase methodology. Expected to produce lower values than the previous assay method. NEW Reference Range: 13 - 75 U/L Performed By: #### L 3100.5020, L501.2450, L501.2400 ####[facility] [address] [place], [place], [address] No Panel InformationOrdered By: Carson Alcantar on 12-08-2023 CA 19-9 Antigen 38 U/mL 0-35 [facility] Comment on above: [facility] El ectrochemiluminescence Immunoassay(ECLIA)Values obtained with different assay methods or kits cannotbe used interchangeably. Results cannot be interpreted asabsolute evidence of the presence or absence of malignantdisease.Performed at: [employer] [id number] Director: Timoteo Berumen PhD, Phone: [phone] Gastroenterology Visit Repor ton 12-06-2023 Gastroenterology Visit Report [facility] Gastroenterology [address] [facility] [place] [address] OFFICE VISIT Date of Service: 12/06/23 MR#: [id number] Acct: [id number] Name: DOM AVILA Rep #: [id number] : 1955 Provider: Carson Alcantar DO Age/Sex: 68/F Location: [facility] Status: Signed Intake Vital Signs 04/01/23 13:53 [...] [place]) Anxiety Arthritis Atherosclerotic heart disease of kaibab coronary artery without angina pectoris Breast cancer, [...] History Mother Cancer pancreatic cancer Father , [place] age 20's (premature CAD), 3 vessel CABG, [...] well. Exam (more content not included)... Normal [facility] Influenza virus A and B and SARS-CoV-2 (COVID-19) Ag panel - Upper respiratory specimOrdered By: Ron Alan on 09-11-2023 SARS-CoV-2 & FLU Antigen (Rapid) SARS-CoV-2 (COVID 19) [facility] UA DIP, URINE (POC)on 2022 BILIRUBIN UA (POCT) Negative Negative [facility] CLARITY UA (POCT) Cloudy [facility] COLOR UA (POCT) Yellow [facility] GLUCOSE UA (POCT) Negative Negative mg/dL [facility] Hemoglobin Ql (U) Trace-intact Abnormal Negative [facility] KETONE UA (POCT) Negative Negative mg/dL [facility] LEUKOCYTES UA (POCT) Moderate Abnormal Negative [facility] NITRITE UA (POCT) Negative Negative [facility] PH UA (POCT) 5.5 4.5 - 8.0 [facility] Protein Ql (U) Negative Negative mg/dL [facility] SPECIFIC GRAVITY UA (POCT) 1.015 1.005 - 1.030 [facility] UROBILINOGEN UA (POCT) 0.2 E.U./dL Normal E.U./ dL [facility] GUILLERMINA SCREENINGon 02-24-2023 [facility] CORONAVIRUS PCR - [facility] 01-12-2023 SARS-CoV-2 (COVID-19) RNA MICHAEL+probe Ql (Unsp spec) Negative Normal NORMAL: NEGATIVE [facility] Comment on above: Performed By: #### 2 [id number] #### [facility],[address] [place] [address] SEND TO IC? NO Normal [facility] Comment on above: Result Comment: RESU LTS FAXED TO INFECTION CONTROL. SARS-CoV-2 THIS TEST IS BEING USED UNDER THE FDA EUA PROCEDURE. THIS ASSAY HAS BEEN VALIDATED IN THE [facility] FOR USE WITH NASOPHARYNGEAL SPECIMENS IN THE [facility]. INTERPRETIVE DATA LABORATORY TEST RESULTS SHOULD ALWAYS [...] PUBLIC HEALTH AUTHORITIES. Performed By: #### 2 [id number] #### [facility],[address] [id number] Glucose Glucometer (BldC) [M ass/Vol]Ordered By: Carson Alcantar on 12-01-2022 Glucose [Mass/Vol] 192 mg/dL 74-106 [facility] Comment on above: MANAGEMENT OF PATIEN T CARE PER NURSING PROTOCOL CT ABD/PEL W IVCONon 023 [facility] No Panel InformationOrdered By: Karin Coles on 11-23-2022 Stool Neutral Fats Increased . [facility] Comment on above: Normal (<60 Droplets /HPF) Stool Pancreatic Elastase > 500 >200 [facility] Comment on above: Result Units: ug [address]ni st./g Severe Pancreatic Insufficiency: <100 Moderate Pancreatic Insufficiency: 100 - 200 Normal: >200Performed at: - [facility] [address] [id number] Director: Benson Osei MD, Phone: [phone] Qualitative fecal fat or lip idsOrdered By: Karin Coles on 11-23-2022 Fat Ql (Stl) Normal . [facility] Comment on above: Normal (<100 Droplet s/HPF)Performed at: - [facility] [address] [id number] Director: Timoteo Berumen PhD, Phone: [phone] Absolute lymphocyte countOrd ered By: Karin Coles on 11-19-2022 Lymphocytes Auto (Unsp spec) [#/Vol] 1.59 10*3/uL 0.83-4.51 [facility] Basophil percentageOrdered B y: Karin Coles on 11-19-2022 Amylase [Catalytic activity/Vol] 58 U/L 25-115 [facility] Basophils/100 WBC (Bld) 0.5 % 0-1 [facility] Bilirubin [Mass/Vol] 0.30 mg/dL 0.20-1.00 [facility] Comment on above: For patients on eltr ombopag therapy, use of Dimension [place] TBIL is not recommended. Chloride [Moles/Vol] 103 mmol/L 98-107 [facility] Eosinophils/100 WBC (Bld) 1.6 % 0-5 [facility] Glucose [Mass/Vol] 193 mg/dL 74-106 [facility] Comment on above: Fasting Glucose resu lt greater than or equal to 126 mg/dL suggests DIABETES MELLITUS per A.D.A. criteria. LDH [Catalytic activity/Vol] 169 U/L 84-246 [facility] Neutrophils (Bld) [#/Vol] 3.5 10*3/uL 2.0-7.7 [facility] Neutrophils/100 WBC (Bld) 61.4 % 47-70 [facility] Potassium [Moles/Vol] 4.1 mmol/L 3.5-5.1 [facility] Protein [Mass/Vol] 6.9 g/dL 6.4-8.2 [facility] Sodium [Moles/Vol] 139 mmol/L 136-145 [facility] WBC (Bld) [#/Vol] 5.7 10*3/uL 4.4-11.0 [facility] Blood erythrocytes count (nu mber/volume)Ordered By: Karin Coles on 11-19-2022 RBC (Bld) [#/Vol] 3.99 10*6/uL 4.2-5.4 [facility] Blood hemoglobin measurement (mass/volume)Ordered By: Karin Coles on 11-19-2022 Hemoglobin (Bld) [Mass/Vol] 12.5 g/dL 12.0-15.0 [facility] Blood lymphocytes/100 leukoc ytesOrdered By: Karin Coles on 11-19-2022 Lymphocytes/100 WBC (Bld) 27.9 % 19-41 [facility] Blood monocytes/100 leukocyt esOrdered By: Karin Coles on 11-19-2022 Monocytes/100 WBC (Bld) 8.2 % 0-10 [facility] Blood platelet mean volumeOr dered By: Karin Coles on 11-19-2022 Platelet mean volume (Bld) [Entitic vol] 9.7 fL 6.2-12.0 [facility] Determination of erythrocyte mean corpuscular volume (MCV)Ordered By: Karin Coles on 11-19-2022 MCV (RBC) [Entitic vol] 94.5 fL 81-99 [facility] Erythrocyte sedimentation ra teOrdered By: Karin Coles on 11-19-2022 ESR (Bld) [Velocity] 7 mm/h 0-30 [facility] Hematocrit Auto (Bld) [Volum e fraction]Ordered By: Karin Coles on 11-19-2022 Hematocrit (Bld) [Volume fraction] 37.7 % 37-47 [facility] Laboratory - Chemistry and C hemistry - challengeOrdered By: Karin Coles on 11-19-2022 ALP [Catalytic activity/Vol] 40 U/L 45-117 [facility] ALT [Catalytic activity/Vol] 21 U/L 13-56 [facility] CO2 [Moles/Vol] 29.0 mmol/L 21.0-32.0 [facility] Globulin (S) [Mass/Vol] 3.5 g/dL 2.2-4.2 [facility] Lipase [Catalytic activity/Vol] 490 U/L 73-393 [facility] Urea nitrogen/Creatinine [Mass ratio] 19.2 mg/mg 10-20 [facility] Laboratory - Hematology and Cell countsOrdered By: Karin Coles on 11-19-2022 Erythrocyte distribution width (RBC) [Entitic vol] 46.2 fL 35.1-43.9 [facility] Erythrocyte distribution width (RBC) [Ratio] 13.4 % 11.6-14.6 [facility] Immature granulocytes/100 WBC (Bld) 0.400 % 0.0-0.9 [facility] Comment on above: IG% - Immature Granu locytes (promyelocytes, myelocytes and metamyelocytes) > 1% indicates that a LEFT SHIFT is Present. MCH (RBC) [Entitic mass] 31.3 pg 27.0-32.0 [facility] Nucleated RBC/100 WBC (Bld) [Ratio] 0 % 0-5 [facility] MCHC Auto (RBC) [Mass/Vol]Or dered By: Karin Coles on 11-19-2022 MCHC (RBC) [Mass/Vol] 33.2 g/dL 32-36 [facility] No Panel InformationOrdered By: Karin Coles on 11-19-2022 CA 19-9 Antigen 35 U/mL 0-35 [facility] Comment on above: [facility] El ectrochemiluminescence Immunoassay(ECLIA)Values obtained with different assay methods or kits cannotbe used interchangeably. Results cannot be interpreted asabsolute evidence of the presence or absence of malignantdisease.Performed at: [facility] [id number] Director: Timoteo Berumen PhD, Phone: [phone] CA 19-9 Antigen Serial Monitoring Not Reportable [facility] Endomysial IgA Antibody Negative Negative [facility] Estimated GFR (MDRD) Amer 95 mL/min >60 [facility] Comment on above: GFR Calc Estimated GFR (MDRD) Non-Af Amer 79 mL/min >60 [facility] Comment on above: Non- GFR Calc Platelets bldOrdered By: Jacquelyn Coles on 11-19-2022 Platelets (Bld) [#/Vol] 218 10*3/uL 150-450 [facility] Serum IgA measurement (units /volume)Ordered By: Karin Coles on 11-19-2022 IgA Qn (S) 160 mg/dL 87-352 [facility] Serum or plasma C reactive p rotein measurement (mass/volume)Ordered By: Karin Coles on 11-19-2022 CRP [Mass/Vol] 8.32 mg/L 0.0-3.0 [facility] Comment on above: C-Reactive Protein ( CRP) provides useful information for thediagnosis, therapy and monitoring of inflammatory processesand associated diseases. For the evaluation of Relative Riskfor Cardiovascular Disease, a High Sensitivity CRP (HSCRP)should be ordered. Serum or plasma albumin lucio urement (mass/volume)Ordered By: Karin Coles on 11-19-2022 Albumin [Mass/Vol] 3.4 g/dL 3.2-5.0 [facility] Serum or plasma albumin/glob ulin mass ratioOrdered By: Karin Coles on 11-19-2022 Albumin/Globulin [Mass ratio] 1.0 {ratio} 0.9-2.4 [facility] Serum or plasma calcium lucio urement (mass/volume)Ordered By: Karin Coles on 11-19-2022 Calcium [Mass/Vol] 8.9 mg/dL 8.5-10.1 [facility] Serum or plasma creatinine m easurement (mass/volume)Ordered By: Karin Coles on 11-19-2022 Creatinine [Mass/Vol] 0.78 mg/dL 0.55-1.02 [facility] Comment on above: The validity of the calculated GFR & GFRAA in patients over 70 years has not been determined. Clinical correlation is essential. Serum or plasma urea nitroge n measurement (mass/volume)Ordered By: Karin Coles on 11-19-2022 Urea nitrogen [Mass/Vol] 15 mg/dL 7-18 [facility] Serum tissue transglutaminas e IgA antibody assay (units/volume)Ordered By: Karin Coles on 11-19-2022 tTG IgA Qn (S) <2 U/mL 0-3 [facility] Comment on above: Negative 0 - 3 Weak Positive 4 - 10 Positive >10 Tissue Transglutaminase (tTG) has been identified as the endomysial antigen. Studies have demonstr- ated that endomysial IgA antibodies have over 99% specificity for gluten sensitive enteropathy. Thin prep Papanicolaou smear with manual screeningOrdered By: Karin Coles on 11-19-2022 Thin prep Papanicolaou smear with manual screening 13 U/L 15-37 [facility] Thin prep Papanicolaou smear with manual screening 7 5-15 [facility] STREP A MOLECULAR (POC)on Procedural Control Valid [facility] Strep A (POCT) Negative Negative [facility] Influenza virus A and B RNA and SARS-CoV-2 (COVID-19) N gene panel MICHAEL+probe (Resp)on 12-27-2022 FLUAV RNA MICHAEL+probe Ql (Unsp spec) Negative Negative for Influenza A by RT-PCR [facility] FLUBV RNA MICHAEL+probe Ql (Unsp spec) Negative Negative for Influenza B by RT-PCR [facility] SARS-CoV-2 (COVID-19) RNA MICHAEL+probe Ql (Resp) SARS-CoV-2 (Agent of COVID-19) Detected by RT-PCR or equivalent method. Abnormal Not Detected [facility] GUILLERMINA DIAG W ANGELA LTon 022 [facility] US ABD RT UPPER QUADRANTon 1 11-09-2021 [facility] CREATININE BLDon 08-28-2022 Creatinine [Mass/Vol] 0.82 mg/dL 0.58 - 0.96 mg/dL [facility] Estimated Glomerular Filtration Rate 79 mL/min/1.73m >=60 mL/min/1.73m [facility] BACTERIAL VAGINOSIS AMPLIFIC ATIONon 07-09-2022 Lactobacillus crispatus+gasseri+deyanira enii + Gardnerella vaginalis + Atopobium vaginae rRNA MICHAEL+probe Ql (Vag fld) Negative Negative for bacterial vaginosis [facility] CHINO / TRICHOMONAS AMPLIF ICATIONon 07-09-2022 C. glabrata RNA MICHAEL+probe Ql (Vag fld) Negative Negative for [place] glabrata [facility] Chino albicans, C. dubliniensis, C. parapsilosis, and C. tropicalis RNA MICHAEL+probe Ql (Vag fld) Negative Negative for [place] species [facility] T. vaginalis DNA MICHAEL+probe Ql (Unsp spec) Negative Negative for Trichomonas vaginalis by amplification [facility] UA DIP, URINE (POC)on 2021 BILIRUBIN UA (POCT) Negative Negative [facility] CLARITY UA (POCT) Clear [facility] COLOR UA (POCT) Yellow [facility] GLUCOSE UA (POCT) Negative Negative mg/dL [facility] HEMOGLOBIN/BLOOD UA (POCT) Negative Negative [facility] KETONE UA (POCT) Negative Negative mg/dL [facility] LEUKOCYTES UA (POCT) Moderate Abnormal Negative [facility] NITRITE UA (POCT) Negative Negative [facility] PH UA (POCT) 7.0 4.5 - 8.0 [facility] Protein Ql (U) Negative Negative mg/dL [facility] SPECIFIC GRAVITY UA (POCT) 1.015 1.005 - 1.030 [facility] UROBILINOGEN UA (POCT) 0.2 E.U./dL Normal E.U./ dL [facility] Laboratory - Chemistry and C hemistry - challengeon 05-28-2022 Free T4 [Mass/Vol] 0.96 ng/dL 0.76-1.46 [facility] Work Phone: Magnesium [Mass/Vol] 2.0 mg/dL 1.6-2.[address] [facility] Work Phone: No Panel Informationon 05-28 Thyroid Stimulating Hormone (TSH) 2.35 uIU/mL 0.358-3.74 [facility] Work Phone: GUILLERMINA SCREENINGon 02-23-2022 [facility] Office Visiton 07-22-2017 Dietary management education, guidance, and counseling (procedure) yes Invalid Interpretation Code [employer] Work Phone: [phone] Documentation of current medications (procedure) Done Invalid Interpretation Code [employer] Work Phone: [phone] Fall risk assessment No Invalid Interpretation Code [employer] Work Phone: [phone] Protein mass conc Done Invalid Interpretation Code [facility] Work Phone: [phone] Tobacco smoking status NHIS Former smoker Invalid Interpretation Code [facility] Work Phone: [phone] Tobacco use [facility] Former smoker Invalid Interpretation Code [facility] Work Phone: [phone] Replaced Document: [employer] E CG Observationson 07-22-2017 EKG QRS axis -20 deg Invalid Interpretation Code [facility] Work Phone: [phone] electrocardiogram interpretation Sinus Rhythm - Nonspecific T-abnormality. ABNORMAL Invalid Interpretation Code [facility] Work Phone: [phone] GE use only - for [employer] import when terms are not otherwise specified 398 ms Invalid Interpretation Code [facility] Work Phone: [phone] Interpretation Sinus Rhythm - Nonspecific T-abnormality. ABNORMAL Invalid Interpretation Code [employer] Work Phone: [phone] P Weston 35 deg Invalid Interpretation Code [facility] Work Phone: P wave axis, electrocardiogram 35 deg Invalid Interpretation Code [employer] Work Phone: [phone] NM Interval 142 ms Invalid Interpretation Code [employer] Work Phone: [phone] NM interval, electrocardiogram 142 ms Invalid Interpretation Code [employer] Work Phone: [phone] Pulse (Heart Rate) 60 /min Invalid Interpretation Code [employer] Work Phone: [phone] QRS axis, electrocardiogram -20 deg Invalid Interpretation Code [employer] Work Phone: [phone] QRS Duration 104 ms Invalid Interpretation Code [employer] Work Phone: [phone] QRS duration, electrocardiogram 104 ms Invalid Interpretation Code [employer] Work Phone: [phone] QT Interval new path ms Invalid Interpretation Code [employer] Work Phone: [phone] QT interval, electrocardiogram new path ms Invalid Interpretation Code [employer] Work Phone: [phone] QTc Suarez 398 ms Invalid Interpretation Code [employer] Work Phone: [phone] T Weston -1 deg Invalid Interpretation Code [employer] Work Phone: [phone] T wave axis, electrocardiogram -1 deg Invalid Interpretation Code [facility] Work Phone: [phone] Clinical Lists Update: Pre06-30-2017 Left ventricular Ejection fraction 65 % Invalid Interpretation Code [employer] Phone: [phone] Office Visiton 04-23-2017 Dietary management education, guidance, and counseling (procedure) yes Invalid Interpretation Code [facility] Work Phone: [phone] Documentation of current medications (procedure) Done Invalid Interpretation Code [facility] Work Phone: [phone] Fall risk assessment No Invalid Interpretation Code [employer] Phone: [phone] Protein mass conc Done [facility] Work Phone: [phone] Clinical Lists Update: Pre04-21-2017 Left ventricular Ejection fraction 60 % [facility] Work Phone: [phone] External Other: Preferred Me thod of [employer] 01-21-2017 GE use only - for Link[employer]ic import when terms are not otherwise specified secmsg Invalid Interpretation Code [employer] Work Phone: [phone] METHCONTACT secmsg [facility] Work Phone: [phone] Office Visit: [facility] 01-21-20 17 Documentation of current medications (procedure) Done Invalid Interpretation Code [employer] Work Phone: [phone] Fall risk assessment No Invalid Interpretation Code [facility] Work Phone: [phone] Protein mass conc Done [facility] Work Phone: [phone] Replaced Document: Amber Peraltaon 01-20-2017 EKG QRS axis -18 deg [facility] Work Phone: [phone] electrocardiogram interpretation Sinus Rhythm - Nonspecific T-abnormality. ABNORMAL Invalid Interpretation Code [employer] Work Phone: [phone] Interpretation Sinus Rhythm - Nonspecific T-abnormality. ABNORMAL [facility] Work Phone: [phone] P Weston 43 deg [facility] Work Phone: [phone] P wave axis, electrocardiogram 43 deg Invalid Interpretation Code [employer] Work Phone: NM Interval 148 ms [facility] Work Phone: [phone] NM interval, electrocardiogram 148 ms Invalid Interpretation Code [employer] Work Phone: [phone] Pulse (Heart Rate) 72 /min Invalid Interpretation Code [employer] Work Phone: [phone] QRS axis, electrocardiogram -18 deg Invalid Interpretation Code [employer] Work Phone: [phone] QRS Duration 106 ms [facility] Work Phone: [phone] QRS duration, electrocardiogram 106 ms Invalid Interpretation Code [employer] Work Phone: [phone] QT Interval new path ms [facility] Work Phone: [phone] QT interval, electrocardiogram new path ms Invalid Interpretation Code [employer] Work Phone: [phone] T Weston -1 deg [facility] Work Phone: [phone] T wave axis, electrocardiogram -1 deg Invalid Interpretation Code [employer] Work Phone: Clinical Lists Update: Prelo peoplesoft consultant 01-08-2017 Left ventricular Ejection fraction 65 % [facility] Work Phone: [phone] Tobacco smoking status NHIS Former smoker [facility] Work Phone: [phone] Tobacco use CPHS Former smoker Invalid Interpretation Code [facility] Work [facility]: Chart Maintenanceon 01-02-20 17 HbA1c 7.2 % Invalid Interpretation Code [place] Work Phone: Vital Signs Date Time Vital Sign Value Performing Clinician Facility 04-24-2025 07:44-0400 Body mass index (BMI) [Ratio] 24.92 kg/m2 Francine Madrid POWER LINEWORKER.ADDRESSOGRAPH OPERATOR Work Phone: [facility] 04-24-2025 07:44-0400 Body weight 63 kg Francine Madrid APRN.ADDRESSOGRAPH OPERATOR Work Phone: [facility] 04-24-2025 07:44-0400 Diastolic blood pressure 76 mm[Hg] Francine Madrid POWER LINEWORKER.ADDRESSOGRAPH OPERATOR Work Phone: [facility] 04-24-2025 07:44-0400 Heart rate 68 /min Francine Madrid POWER LINEWORKER.ADDRESSOGRAPH OPERATOR Work Phone: [facility] 04-24-2025 07:44-0400 Systolic blood pressure 138 mm[Hg] Francine Madrid POWER LINEWORKER.ELIZABETH Work Phone: [facility] 04-19-2025 08:46-0400 Body height 159 cm Cherise Sifuentes PA-C Work Phone: [facility] 04-19-2025 08:46-0400 Body mass index (BMI) [Ratio] 25.66 kg/m2 Cherise Sifuentes PA-C Work Phone: [facility] 04-19-2025 08:46-0400 Body temperature 97.2 [degF] Cherise Sifuentes PA-C Work Phone: [facility] 04-19-2025 08:46-0400 Body weight 64.86 kg Cherise Sifuentes PA-C Work Phone: [facility] 04-19-2025 08:46-0400 Diastolic blood pressure 72 mm[Hg] Cherise MAYS-C Work Phone: [facility] 04-19-2025 08:46-0400 Heart rate 58 /min Cherise Sifuentes PA-C Work Phone: [facility] 04-19-2025 08:46-0400 Respiratory rate 16 /min Cherise Sifuentes PA-C Work Phone: [facility] 04-19-2025 08:46-0400 SaO2% (BldA) [Mass fraction] 98 % Cherise Sifuentes PA-C Work Phone: [facility] 04-19-2025 08:46-0400 Systolic blood pressure 136 mm[Hg] Cherise Sifuentes PA-C Work Phone: [facility] 04-09-2025 09:12-0400 Body height 159 cm Sima Dumont APRN.ADDRESSOGRAPH OPERATOR Work Phone: [facility] 04-09-2025 09:12-0400 Body mass index (BMI) [Ratio] 25.66 kg/m2 Sima Dumont APRN.ADDRESSOGRAPH OPERATOR Work Phone: [facility] 04-09-2025 09:12-0400 Body weight 64.86 kg Sima Dumont APRN.ADDRESSOGRAPH OPERATOR Work Phone: [facility] 04-09-2025 09:12-0400 Diastolic blood pressure 90 mm[Hg] Sima Dumont APRN.ADDRESSOGRAPH OPERATOR Work Phone: [facility] 04-09-2025 09:12-0400 Systolic blood pressure 156 mm[Hg] Sima Dumont APRN.ADDRESSOGRAPH OPERATOR Work Phone: [facility] 03-21-2025 07:56-0400 Body mass index (BMI) [Ratio] 25.46 kg/m2 Chad Mariee APRN.ADDRESSOGRAPH OPERATOR Work Phone: [facility] 03-21-2025 07:56-0400 Body temperature 97.59 [degF] Chad Mariee APRN.ADDRESSOGRAPH OPERATOR Work Phone: [facility] 03-21-2025 07:56-0400 Body weight 65.2 kg Chad Russellenter POWER LINEWORKER.ADDRESSOGRAPH OPERATOR Work Phone: [facility] 03-21-2025 07:56-0400 Diastolic blood pressure 88 mm[Hg] Chad Mariee POWER LINEWORKER.ADDRESSOGRAPH OPERATOR Work Phone: [facility] 03-21-2025 07:56-0400 Heart rate 63 /min Chad Mariee POWER LINEWORKER.ADDRESSOGRAPH OPERATOR Work Phone: [facility] 03-21-2025 07:56-0400 SaO2% (BldA) [Mass fraction] 97 % [place] Mariee POWER LINEWORKER.ADDRESSOGRAPH OPERATOR Work Phone: [facility] 03-21-2025 07:56-0400 Systolic blood pressure 163 mm[Hg] Chad Mariee POWER LINEWORKER.ADDRESSOGRAPH OPERATOR Work Phone: [facility] 03-16-2025 08:39-0400 Body height 160 cm Alexa Matute MD Work Phone: [facility] 03-16-2025 08:39-0400 Body mass index (BMI) [Ratio] 25.44 kg/m2 Alexa Matute MD Work Phone: [facility] 03-16-2025 08:39-0400 Body weight 65.14 kg Alexa Matute MD Work Phone: [facility] 03-16-2025 08:39-0400 Diastolic blood pressure 90 mm[Hg] Alexa Matute MD Work Phone: [facility] 03-16-2025 08:39-0400 Heart rate 57 /min Alexa Matute MD Work Phone: [facility] 03-16-2025 08:39-0400 Respiratory rate 17 /min Alexa Matute MD Work Phone: [facility] 03-16-2025 08:39-0400 SaO2% (BldA) [Mass fraction] 99 % Alexa Matute MD Work Phone: [facility] 03-16-2025 08:39-0400 Systolic blood pressure 160 mm[Hg] Alexa Matute MD Work Phone: [facility] 02-19-2025 08:44-0400 Diastolic blood pressure 80 mm[Hg] Ori Mbanugo DO Work Phone: [facility] 02-19-2025 08:44-0400 Systolic blood pressure 164 mm[Hg] Ori Mbanugo DO Work Phone: [facility] 02-19-2025 08:41-0400 Heart rate 65 /min Ori Mbanugo DO Work Phone: [facility] 02-19-2025 08:41-0400 SaO2% (BldA) [Mass fraction] 99 % Ori Mbanugo DO Work Phone: [facility] 02-16-2025 09:08-0400 Body mass index (BMI) [Ratio] 25.59 kg/m2 Alexa Matute MD Work Phone: [facility] 02-16-2025 09:08-0400 Body temperature 97.11 [degF] Alexa Matute MD Work Phone: [facility] 02-16-2025 09:08-0400 Body weight 65.32 kg Alexa Matute MD Work Phone: [facility] 02-16-2025 09:08-0400 Diastolic blood pressure 70 mm[Hg] Alexa Matute MD Work Phone: [facility] 02-16-2025 09:08-0400 Heart rate 67 /min Alexa Matute MD Work Phone: [facility] 02-16-2025 09:08-0400 SaO2% (BldA) [Mass fraction] 98 % Alexa Matute MD Work Phone: [facility] 02-16-2025 09:08-0400 Systolic blood pressure 140 mm[Hg] Alexa Matute MD Work Phone: [facility] 12-29-2024 13:33-0500 Body mass index (BMI) [Ratio] 23.99 kg/m2 Francine Madrid APRN.ADDRESSOGRAPH OPERATOR Work Phone: [facility] 12-29-2024 13:33-0500 Body weight 61.24 kg Francine Madrid APRN.ADDRESSOGRAPH OPERATOR Work Phone: [facility] 12-29-2024 13:33-0500 Diastolic blood pressure 81 mm[Hg] Francine Madrid APRN.ADDRESSOGRAPH OPERATOR Work Phone: [facility] 12-29-2024 13:33-0500 Heart rate 67 /min Francine Madrid APRN.ADDRESSOGRAPH OPERATOR Work Phone: [facility] 12-29-2024 13:33-0500 SaO2% (BldA) [Mass fraction] 98 % Francine Madrid APRN.ADDRESSOGRAPH OPERATOR Work Phone: [facility] 12-29-2024 13:33-0500 Systolic blood pressure 171 mm[Hg] Francine Madrid APRN.ADDRESSOGRAPH OPERATOR Work Phone: [facility] 11-03-2024 08:39-0500 Body height 159.8 cm Alexa Matute MD Work Phone: [facility] 11-03-2024 08:39-0500 Body mass index (BMI) [Ratio] 25.23 kg/m2 Alexa Matute MD Work Phone: [facility] 11-03-2024 08:39-0500 Body temperature 96.91 [degF] Alexa Matute MD Work Phone: [facility] 11-03-2024 08:39-0500 Body weight 64.41 kg Alexa Matute MD Work Phone: [facility] 11-03-2024 08:39-0500 Diastolic blood pressure 78 mm[Hg] Alexa Matute MD Work Phone: [facility] 11-03-2024 08:39-0500 Heart rate 60 /min Alexa Matute MD Work Phone: [facility] 11-03-2024 08:39-0500 SaO2% (BldA) [Mass fraction] 98 % Alexa Matute MD Work Phone: [facility] 11-03-2024 08:39-0500 Systolic blood pressure 138 mm[Hg] Alexa Matute MD Work Phone: [facility] 10-18-2024 09:37-0500 Diastolic blood pressure 82 mm[Hg] Clifton Hung MD Work Phone: [facility] 10-18-2024 09:37-0500 Systolic blood pressure 132 mm[Hg] Clifton Hung MD Work Phone: [facility] 10-18-2024 09:19-0500 Body mass index (BMI) [Ratio] 24.88 kg/m2 Clifton Hung MD Work Phone: [facility] 10-18-2024 09:19-0500 Body temperature 97.59 [degF] Clifton Hung MD Work Phone: [facility] 10-18-2024 09:19-0500 Body weight 63.5 kg Clifton Hung MD Work Phone: [facility] 10-18-2024 09:19-0500 Heart rate 62 /min Clifton Hung MD Work Phone: [facility] 10-18-2024 09:19-0500 Respiratory rate 16 /min Clifton Hung MD Work Phone: [facility] 09-22-2024 09:08-0500 Body mass index (BMI) [Ratio] 24.77 kg/m2 Alexa Matute MD Work Phone: [facility] 09-22-2024 09:08-0500 Body weight 63.23 kg Alexa Matute MD Work Phone: [facility] 09-22-2024 09:08-0500 Diastolic blood pressure 68 mm[Hg] Alexa Matute MD Work Phone: [facility] 09-22-2024 09:08-0500 Heart rate 72 /min Alexa Matute MD Work Phone: [facility] 09-22-2024 09:08-0500 Respiratory rate 12 /min Alexa Matute MD Work Phone: [facility] 09-22-2024 09:08-0500 Systolic blood pressure 120 mm[Hg] Alexa Matute MD Work Phone: [facility] 09-14-2024 08:44-0500 Body mass index (BMI) [Ratio] 24.76 kg/m2 Chad Mariee POWER LINEWORKER.ADDRESSOGRAPH OPERATOR Work Phone: [facility] 09-14-2024 08:44-0500 Body temperature 97.7 [degF] Chad Mariee POWER LINEWORKER.ADDRESSOGRAPH OPERATOR Work Phone: [facility] 09-14-2024 08:44-0500 Body weight 63.2 kg Chad Mariee POWER LINEWORKER.ADDRESSOGRAPH OPERATOR Work Phone: [facility] 09-14-2024 08:44-0500 Diastolic blood pressure 83 mm[Hg] Chad Mariee POWER LINEWORKER.ADDRESSOGRAPH OPERATOR Work Phone: [facility] 09-14-2024 08:44-0500 Heart rate 72 /min Chad Mariee POWER LINEWORKER.ADDRESSOGRAPH OPERATOR Work Phone: [facility] 09-14-2024 08:44-0500 SaO2% (BldA) [Mass fraction] 96 % Chad Mariee POWER LINEWORKER.ADDRESSOGRAPH OPERATOR Work Phone: [facility] 09-14-2024 08:44-0500 Systolic blood pressure 155 mm[Hg] Chad Mariee POWER LINEWORKER.ADDRESSOGRAPH OPERATOR Work Phone: [facility] 08-04-2024 10:20-0400 Diastolic blood pressure 80 mm[Hg] Ori Lord DO Work Phone: [facility] 08-04-2024 10:20-0400 Systolic blood pressure 145 mm[Hg] Ori Quanugo DO Work Phone: [facility] 08-04-2024 10:18-0400 Body mass index (BMI) [Ratio] 24.7 kg/m2 Ori Mbanugo DO Work Phone: [facility] 08-04-2024 10:18-0400 Body weight 63.05 kg Ori Quanugo DO Work Phone: [facility] 08-04-2024 10:180400 Heart rate 63 /min Ori Quanugo DO Work Phone: [facility] 08-04-2024 10:180400 SaO2% (BldA) [Mass fraction] 99 % Ori Quanugo DO Work Phone: [facility] 07-11-2024 13:14-0400 Body height 159.8 cm Alexa Matute MD Work Phone: [facility] 07-11-2024 13:14-0400 Body mass index (BMI) [Ratio] 24.74 kg/m2 Alexa Matute MD Work Phone: [facility] 07-11-2024 13:14-0400 Body temperature 97.39 [degF] Alexa Matute MD Work Phone: [facility] 07-11-2024 13:14-0400 Body weight 63.14 kg Alexa Matute MD Work Phone: [facility] 07-11-2024 13:14-0400 Diastolic blood pressure 70 mm[Hg] Alexa Matute MD Work Phone: [facility] 07-11-2024 13:14-0400 Heart rate 68 /min Alexa Matute MD Work Phone: [facility] 07-11-2024 13:14-0400 SaO2% (BldA) [Mass fraction] 98 % Alexa Matute MD Work Phone: [facility] 07-11-2024 13:14-0400 Systolic blood pressure 118 mm[Hg] Alexa Matute MD Work Phone: [facility] 07-04-2024 10:55-0400 Diastolic blood pressure 76 mm[Hg] Ori Mbanugo DO Work Phone: [facility] 07-04-2024 10:55-0400 Heart rate 70 /min Ori Mbanugo DO Work Phone: [facility] 07-04-2024 10:55-0400 SaO2% (BldA) [Mass fraction] 99 % Ori Mbanugo DO Work Phone: [facility] 07-04-2024 10:55-0400 Systolic blood pressure 121 mm[Hg] Ori Mbanugo DO Work Phone: [facility] 05-23-2024 11:54-0400 Diastolic blood pressure 85 mm[Hg] Ori Kostas Mbanugo DO Work Phone: [facility] 05-23-2024 11:54-0400 Heart rate 72 /min Ori Kostas Mbanugo DO Work Phone: [facility] 05-23-2024 11:54-0400 Systolic blood pressure 137 mm[Hg] Ori Kostas Mbanugo DO Work Phone: [facility] 05-01-2024 12:54-0400 Body mass index (BMI) [Ratio] 26.05 kg/m2 Julio Moomaw POWER LINEWORKER.ADDRESSOGRAPH OPERATOR Work Phone: [facility] 05-01-2024 12:54-0400 Body temperature 97.5 [degF] Julio Moomaw POWER LINEWORKER.ADDRESSOGRAPH OPERATOR Work Phone: [facility] 05-01-2024 12:54-0400 Body weight 66.7 kg Julio Moomaw POWER LINEWORKER.ADDRESSOGRAPH OPERATOR Work Phone: [facility] 05-01-2024 12:54-0400 Diastolic blood pressure 78 mm[Hg] Julio Moomaw POWER LINEWORKER.ADDRESSOGRAPH OPERATOR Work Phone: [facility] 05-01-2024 12:54-0400 Heart rate 70 /min Julio Moomaw POWER LINEWORKER.ADDRESSOGRAPH OPERATOR Work Phone: [facility] 05-01-2024 12:54-0400 Respiratory rate 16 /min Julio Moomaw POWER LINEWORKER.ADDRESSOGRAPH OPERATOR Work Phone: [facility] 05-01-2024 12:54-0400 SaO2% (BldA) [Mass fraction] 98 % Julio Moomaw POWER LINEWORKER.ADDRESSOGRAPH OPERATOR Work Phone: [facility] 05-01-2024 12:54-0400 Systolic blood pressure 126 mm[Hg] Julio Moomaw POWER LINEWORKER.ADDRESSOGRAPH OPERATOR Work Phone: [facility] 04-25-2024 08:48-0400 Diastolic blood pressure 73 mm[Hg] Ori Kostas Mbanugo DO Work Phone: [facility] 04-25-2024 08:48-0400 Systolic blood pressure 156 mm[Hg] Ori Kostas Mbanugo DO Work Phone: [facility] 04-25-2024 08:02-0400 Heart rate 60 /min Ori Kostas Mbanugo DO Work Phone: [facility] 04-25-2024 08:02-0400 SaO2% (BldA) [Mass fraction] 100 % Ori Kostas Mbanugo DO Work Phone: [facility] 04-17-2024 09:34-0400 Body mass index (BMI) [Ratio] 25.87 kg/m2 Francine Madrid POWER LINEWORKER.ADDRESSOGRAPH OPERATOR Work Phone: [facility] 04-17-2024 09:34-0400 Body weight 66.22 kg Francine Madrid POWER LINEWORKER.ADDRESSOGRAPH OPERATOR Work Phone: [facility] 04-17-2024 09:34-0400 Diastolic blood pressure 76 mm[Hg] Francine Madrid POWER LINEWORKER.ADDRESSOGRAPH OPERATOR Work Phone: [facility] 04-17-2024 09:34-0400 Heart rate 58 /min Francine Madrid POWER LINEWORKER.ADDRESSOGRAPH OPERATOR Work Phone: [facility] 04-17-2024 09:34-0400 Respiratory rate 14 /min Francien Madrid POWER LINEWORKER.ADDRESSOGRAPH OPERATOR Work Phone: [facility] 04-17-2024 09:34-0400 Systolic blood pressure 135 mm[Hg] Francine Madrid POWER LINEWORKER.ADDRESSOGRAPH OPERATOR Work Phone: [facility] 03-22-2024 17:20-0400 Body mass index (BMI) [Ratio] 25.87 kg/m2 Clifton Hung MD Work Phone: [facility] 03-22-2024 17:20-0400 Body temperature 98.29 [degF] Clifton Hung MD Work Phone: [facility] 03-22-2024 17:20-0400 Body weight 66.22 kg Clifton Hung MD Work Phone: [facility] 03-22-2024 17:20-0400 Diastolic blood pressure 68 mm[Hg] Clifton Hung MD Work Phone: [facility] 03-22-2024 17:20-0400 Heart rate 81 /min Clifton Hung MD Work Phone: [facility] 03-22-2024 17:20-0400 Respiratory rate 16 /min Clifton Hung MD Work Phone: [facility] 03-22-2024 17:20-0400 SaO2% (BldA) [Mass fraction] 98 % Clifton Hung MD Work Phone: [facility] 03-22-2024 17:20-0400 Systolic blood pressure 120 mm[Hg] Clifton Hung MD Work Phone: [facility] 03-14-2024 09:50-0400 Body mass index (BMI) [Ratio] 26.03 kg/m2 Chad Mariee POWER LINEWORKER.ADDRESSOGRAPH OPERATOR Work Phone: [facility] 03-14-2024 09:50-0400 Body temperature 97.7 [degF] Chad Mariee POWER LINEWORKER.ADDRESSOGRAPH OPERATOR Work Phone: [facility] 03-14-2024 09:50-0400 Body weight 66.63 kg Chad Mariee APRN.ADDRESSOGRAPH OPERATOR Work Phone: [facility] 03-14-2024 09:50-0400 Diastolic blood pressure 85 mm[Hg] Chad Mariee POWER LINEWORKER.ADDRESSOGRAPH OPERATOR Work Phone: [facility] 03-14-2024 09:50-0400 Heart rate 67 /min Chad Mariee POWER LINEWORKER.ADDRESSOGRAPH OPERATOR Work Phone: [facility] 03-14-2024 09:50-0400 SaO2% (BldA) [Mass fraction] 100 % Chad Mariee POWER LINEWORKER.ADDRESSOGRAPH OPERATOR Work Phone: [facility] 03-14-2024 09:50-0400 Systolic blood pressure 144 mm[Hg] Chad Mariee POWER LINEWORKER.ADDRESSOGRAPH OPERATOR Work Phone: [facility] 01-18-2024 13:48-0400 Body weight 66.68 kg Sima Dumont APRN.ADDRESSOGRAPH OPERATOR Work Phone: [facility] 01-18-2024 13:48-0400 Diastolic blood pressure 72 mm[Hg] Sima Dumont APRN.ADDRESSOGRAPH OPERATOR Work Phone: [facility] 01-18-2024 13:48-0400 Systolic blood pressure 162 mm[Hg] Sima Dumont APRN.ADDRESSOGRAPH OPERATOR Work Phone: [facility] 01-14-2024 08:34-0500 Diastolic blood pressure 78 mm[Hg] Francine Madrid POWER LINEWORKER.ADDRESSOGRAPH OPERATOR Work Phone: [facility] 01-14-2024 08:34-0500 Systolic blood pressure 140 mm[Hg] Francine Madrid APRN.ADDRESSOGRAPH OPERATOR Work Phone: [facility] 01-14-2024 08:23-0500 Body weight 65.77 kg Francine Madrid APRN.ADDRESSOGRAPH OPERATOR Work Phone: [facility] 01-14-2024 08:23-0500 Heart rate 74 /min Francine Madrid POWER LINEWORKER.ADDRESSOGRAPH OPERATOR Work Phone: [facility] 01-14-2024 08:23-0500 Respiratory rate 14 /min Francine Madrid POWER LINEWORKER.ADDRESSOGRAPH OPERATOR Work Phone: [facility] 12-31-2023 13:43-0500 Body weight 64.86 kg Francine Madrid POWER LINEWORKER.ADDRESSOGRAPH OPERATOR Work Phone: [facility] 12-31-2023 13:43-0500 Diastolic blood pressure 90 mm[Hg] Francine Madrid POWER LINEWORKER.ADDRESSOGRAPH OPERATOR Work Phone: [facility] 12-31-2023 13:43-0500 Heart rate 77 /min Francine Madrid POWER LINEWORKER.ADDRESSOGRAPH OPERATOR Work Phone: [facility] 12-31-2023 13:43-0500 Respiratory rate 16 /min Francine Madrid POWER LINEWORKER.ADDRESSOGRAPH OPERATOR Work Phone: [facility] 12-31-2023 13:43-0500 Systolic blood pressure 170 mm[Hg] Francine Madrid POWER LINEWORKER.ADDRESSOGRAPH OPERATOR Work Phone: [facility] 12-28-2023 02:53-0500 Body temperature 98 [degF] Dr. Clifton Hung Work Phone: [facility] 12-28-2023 02:53-0500 Diastolic blood pressure 65 mm[Hg] Dr. Clifton Hung Work Phone: [facility] 12-28-2023 02:53-0500 Heart rate 96 /min Dr. Clifton Hung Work Phone: [facility] 12-28-2023 02:53-0500 Respiratory rate 18 /min Dr. Clifton Hung Work Phone: [facility] 12-28-2023 02:53-0500 SaO2% (BldA) [Mass fraction] 96 % Dr. Clifton Hung Work Phone: [facility] 12-28-2023 02:53-0500 Systolic blood pressure 188 mm[Hg] Dr. Clifton Hung Work Phone: 6(769)706-401025 [place] [address] 12-28-2023 00:40-0500 Body height 160.[address] Clifton Hung Work Phone: 1(888)665-526425 [place] [address] 12-28-2023 00:40-0500 Body mass index (BMI) [Ratio] 25.6 kg/m2 Dr. Clifton Hung Work Phone: 8(178)556-618225 [place] [address] 12-28-2023 00:40-0500 Body weight 65.[address] Clifton Hung Work Phone: 7(389)913-729225 [place] [address] 12-22-2023 15:03-0500 Body temperature 99.3 [degF] Dr. Clifton Hung Work Phone: 9(705)980-781025 [place] [address] 12-22-2023 15:03-0500 Diastolic blood pressure 74 mm[Hg] Dr. Clifton Hung Work Phone: 4(792)856-727225 [place] [address] 12-22-2023 15:03-0500 Heart rate 88 /min Dr. Clifton Hung Work Phone: 3(195)897-609525 [place] [address] 12-22-2023 15:03-0500 Respiratory rate 16 /min Dr. Clifton Hung Work Phone: 6(503)985-342825 [place] [address] 12-22-2023 15:03-0500 SaO2% (BldA) [Mass fraction] 98 % Dr. Clifton Hung Work Phone: 1(478)810-036125 [place] [address] 12-22-2023 15:03-0500 Systolic blood pressure 103 mm[Hg] Dr. Clifton Hung Work Phone: 7(219)149-305825 [place] [address] 12-22-2023 13:22-0500 Body height 160.[address] Clifton Hung Work Phone: 1(727)843-319025 [place] [address] 12-22-2023 13:22-0500 Body mass index (BMI) [Ratio] 24.8 kg/m2 Dr. Clifton Hung Work Phone: 3(028)790-657025 [place] [address] 12-22-2023 13:22-0500 Body weight 63.[address] Clifton Hung Work Phone: [facility] 10-08-2023 08:59-0500 Body weight 64.86 kg Francine Madrid POWER LINEWORKER.ADDRESSOGRAPH OPERATOR Work Phone: [facility] 10-08-2023 08:59-0500 Diastolic blood pressure 85 mm[Hg] Francine Madrid POWER LINEWORKER.ADDRESSOGRAPH OPERATOR Work Phone: [facility] 10-08-2023 08:59-0500 Heart rate 62 /min Francine Madrid POWER LINEWORKER.ADDRESSOGRAPH OPERATOR Work Phone: [facility] 10-08-2023 08:59-0500 Respiratory rate 14 /min Francine Madrid POWER LINEWORKER.ADDRESSOGRAPH OPERATOR Work Phone: [facility] 10-08-2023 08:59-0500 Systolic blood pressure 166 mm[Hg] Francine Madrid POWER LINEWORKER.ADDRESSOGRAPH OPERATOR Work Phone: 3(261)223-706078 [place] [address] 09-11-2023 14:30-0400 Body height 160.[address] Clifton Hung Work Phone: 7(942)184-563406 [place] [address] 09-11-2023 14:30-0400 Body mass index (BMI) [Ratio] 25.4 kg/m2 Dr. Clifton Hung Work Phone: 3(201)004-496606 [address] [place] [address] 09-11-2023 14:30-0400 Body temperature 98.9 [degF] Dr. Clifton Hung Work Phone: 3(422)023-940806 [place] [address] 09-11-2023 14:30-0400 Body weight 65.[address] Clifton Hung Work Phone: 1(051)218-826406 [place] [address] 09-11-2023 14:30-0400 Diastolic blood pressure 94 mm[Hg] Dr. Clifton Hung Work Phone: 9(591)598-187506 [place] [address] 09-11-2023 14:30-0400 Heart rate 91 /min Dr. Clifton Hung Work Phone: 0(671)415-714106 [place] [address] 09-11-2023 14:30-0400 Respiratory rate 20 /min Dr. Clifton Hung Work Phone: 5(192)748-019206 [place] [address] 09-11-2023 14:30-0400 SaO2% (BldA) [Mass fraction] 96 % Dr. Clifton Hung Work Phone: [facility] 09-11-2023 14:30-0400 Systolic blood pressure 107 mm[Hg] Dr. Clifton Hung Work Phone: 9(662)910-522406 [place] [address] 08-30-2023 10:24-0400 Body mass index (BMI) [Ratio] 26 kg/m2 Dr. Clifton Hung Work Phone: [facility] 08-30-2023 10:24-0400 Body weight 66.[address] Clifton Hung Work Phone: 3(455)413-398606 [place] [address] 08-30-2023 10:24-0400 Diastolic blood pressure 89 mm[Hg] Dr. Clifton Hung Work Phone: 2(900)158-413806 [place] [address] 08-30-2023 10:24-0400 Heart rate 62 /min Dr. Clifton Hung Work Phone: 8(249)006-380606 [place] [address] 08-30-2023 10:24-0400 Respiratory rate 18 /min Dr. Clifton Hung Work Phone: 7(906)562-373906 [place] [address] 08-30-2023 10:24-0400 Systolic blood pressure 184 mm[Hg] Dr. Clifton Hung Work Phone: [facility] 07-23-2023 11:06-0400 Body weight 63.14 kg Sima Dumont APRN.ADDRESSOGRAPH OPERATOR Work Phone: [facility] 07-23-2023 11:06-0400 Diastolic blood pressure 78 mm[Hg] Sima Dumont APRN.ADDRESSOGRAPH OPERATOR Work Phone: [facility] 07-23-2023 11:06-0400 Systolic blood pressure 120 mm[Hg] Sima Dumont APRN.ADDRESSOGRAPH OPERATOR Work Phone: [facility] 07-15-2023 14:54-0400 Diastolic blood pressure 64 mm[Hg] Dr. Clifton Hung Work Phone: [facility] 07-15-2023 14:54-0400 Respiratory rate 16 /min Dr. Clifton Hung Work Phone: [facility] 07-15-2023 14:54-0400 Systolic blood pressure 130 mm[Hg] Dr. Clifton Hung Work Phone: [facility] 07-15-2023 14:53-0400 Heart rate 64 /min Dr. Clifton Hung Work Phone: 2(804)555-432606 [place] [address] 04-20-2023 10:38-0400 Body height 160.[address] Clifton Hung Work Phone: 8(379)329-056806 [place] [address] 04-20-2023 10:38-0400 Body weight 61.[address] Clifton Hung Work Phone: 6(928)841-077706 [place] [address] 04-08-2023 13:05-0400 Body height 157.5 cm Clifton Hung MD Work Phone: [facility] 04-08-2023 13:05-0400 Body weight 60.33 kg Clifton Hung MD Work Phone: [facility] 04-08-2023 13:05-0400 Diastolic blood pressure 84 mm[Hg] Clifton Hung MD Work Phone: [facility] 04-08-2023 13:05-0400 Heart rate 70 /min Clifton Hung MD Work Phone: [facility] 04-08-2023 13:05-0400 Respiratory rate 16 /min Clifton Hung MD Work Phone: [facility] 04-08-2023 13:05-0400 Systolic blood pressure 128 mm[Hg] Clifton Hung MD Work Phone: [facility] 04-01-2023 13:53-0400 Body mass index (BMI) [Ratio] 23.9 kg/m2 Dr. Clifton Hung Work Phone: [facility] 04-01-2023 13:53-0400 Body weight 61.[address] Clifton Hung Work Phone: 5(178)482-222806 [place] [address] 04-01-2023 13:53-0400 Diastolic blood pressure 80 mm[Hg] Dr. Clifton Hung Work Phone: [facility] 04-01-2023 13:53-0400 Heart rate 55 /min Dr. Clifton Hung Work Phone: [facility] 04-01-2023 13:53-0400 SaO2% (BldA) [Mass fraction] 98 % Dr. Clifton Hung Work Phone: [facility] 04-01-2023 13:53-0400 Systolic blood pressure 139 mm[Hg] Dr. Clifton Hung Work Phone: [facility] 02-26-2023 09:52-0400 Body height 158 cm Chad Mariee POWER LINEWORKER.ADDRESSOGRAPH OPERATOR Work Phone: [facility] 02-26-2023 09:52-0400 Body temperature 97.11 [degF] Chad Mariee POWER LINEWORKER.ADDRESSOGRAPH OPERATOR Work Phone: [facility] 02-26-2023 09:52-0400 Body weight 61.69 kg Chad Mariee POWER LINEWORKER.ADDRESSOGRAPH OPERATOR Work Phone: [facility] 02-26-2023 09:52-0400 Diastolic blood pressure 70 mm[Hg] Chad Mariee POWER LINEWORKER.ADDRESSOGRAPH OPERATOR Work Phone: [facility] 02-26-2023 09:52-0400 Heart rate 82 /min Chad Mariee POWER LINEWORKER.ADDRESSOGRAPH OPERATOR Work Phone: [facility] 02-26-2023 09:52-0400 SaO2% (BldA) [Mass fraction] 100 % Chad Mariee POWER LINEWORKER.ADDRESSOGRAPH OPERATOR Work Phone: [facility] 02-26-2023 09:52-0400 Systolic blood pressure 132 mm[Hg] Chad Mariee POWER LINEWORKER.ADDRESSOGRAPH OPERATOR Work Phone: [facility] 02-18-2023 11:10-0400 Body mass index (BMI) [Ratio] 24.3 kg/m2 Dr. Clifton Hung Work Phone: [facility] 02-18-2023 11:10-0400 Body weight 62.[address] Clifton Hung Work Phone: [facility] 02-18-2023 11:10-0400 Diastolic blood pressure 75 mm[Hg] Dr. Clifton Hung Work Phone: [facility] 02-18-2023 11:10-0400 Heart rate 66 /min Dr. Clifton Hung Work Phone: [facility] 02-18-2023 11:10-0400 Respiratory rate 16 /min Dr. Clifton Hung Work Phone: [facility] 02-18-2023 11:10-0400 Systolic blood pressure 121 mm[Hg] Dr. Clifton Hung Work Phone: [facility] 02-09-2023 12:08-0400 Body weight 63.[address] Clifton Hung Work Phone: [facility] 02-09-2023 07:43-0400 Body temperature 98.71 [degF] Cherise Sifuentes PA-C Work Phone: [facility] 02-09-2023 07:43-0400 Body weight 61.69 kg Cherise Sifuentes PA-C Work Phone: [facility] 02-09-2023 07:43-0400 Diastolic blood pressure 78 mm[Hg] Cherise Sifuentes PA-C Work Phone: [facility] 02-09-2023 07:43-0400 Heart rate 80 /min Cherise Sifuentes PA-C Work Phone: [facility] 02-09-2023 07:43-0400 Respiratory rate 18 /min Cherise Sifuentes PA-C Work Phone: [facility] 02-09-2023 07:43-0400 Systolic blood pressure 122 mm[Hg] Cherise Sifuentes PA-C Work Phone: [facility] 02-05-2023 09:19-0400 Body temperature 98.91 [degF] Lori Nithya POWER LINEWORKER.ADDRESSOGRAPH OPERATOR Work Phone: [facility] 02-05-2023 09:19-0400 Body weight 63.23 kg Lori Nithya POWER LINEWORKER.ADDRESSOGRAPH OPERATOR Work Phone: [facility] 02-05-2023 09:19-0400 Diastolic blood pressure 72 mm[Hg] Lori Nithya POWER LINEWORKER.ADDRESSOGRAPH OPERATOR Work Phone: [facility] 02-05-2023 09:19-0400 Heart rate 92 /min Lori Nithya POWER LINEWORKER.ADDRESSOGRAPH OPERATOR Work Phone: [facility] 02-05-2023 09:19-0400 Respiratory rate 18 /min Lori Nithya POWER LINEWORKER.ADDRESSOGRAPH OPERATOR Work Phone: [facility] 02-05-2023 09:19-0400 SaO2% (BldA) [Mass fraction] 98 % Lorimary lou Matak POWER LINEWORKER.ADDRESSOGRAPH OPERATOR Work Phone: [facility] 02-05-2023 09:19-0400 Systolic blood pressure 112 mm[Hg] Lori Nithya POWER LINEWORKER.ADDRESSOGRAPH OPERATOR Work Phone: [facility] 01-07-2023 16:32-0500 Body height 160.[address] Clifton Hung Work Phone: [facility] 01-07-2023 16:32-0500 Body weight 65.[address] Clifton Hung Work Phone: [facility] 12-09-2022 07:04-0500 Body weight 66.68 kg Sima Dumont POWER LINEWORKER.ADDRESSOGRAPH OPERATOR Work Phone: [facility] 12-09-2022 07:04-0500 Diastolic blood pressure 62 mm[Hg] Sima Dumont POWER LINEWORKER.ADDRESSOGRAPH OPERATOR Work Phone: [facility] 12-09-2022 07:04-0500 Systolic blood pressure 110 mm[Hg] Sima Dumont POWER LINEWORKER.ADDRESSOGRAPH OPERATOR Work Phone: [facility] 12-01-2022 14:30-0500 Body temperature 98 [degF] Dr. Clifton Hung Work Phone: 2(455)363-162025 [place] [address] 12-01-2022 14:30-0500 Diastolic blood pressure 69 mm[Hg] Dr. Clifton Hung Work Phone: 0(459)925-192525 [place] [address] 12-01-2022 14:30-0500 Heart rate 60 /min Dr. Clifton Hung Work Phone: 1(200)803-267725 [place] [address] 12-01-2022 14:30-0500 Respiratory rate 18 /min Dr. Clifton Hung Work Phone: 7(606)380-417125 [place] [address] 12-01-2022 14:30-0500 SaO2% (BldA) [Mass fraction] 99 % Dr. Clifton Hung Work Phone: 0(194)779-707925 [place] [address] 12-01-2022 14:30-0500 Systolic blood pressure 120 mm[Hg] Dr. Clifton Hung Work Phone: 2(142)403-624425 [place] [address] 12-01-2022 12:07-0500 Body height 160.[address] Clifton Hung Work Phone: 0(966)576-663325 [place] [address] 12-01-2022 12:07-0500 Body mass index (BMI) [Ratio] 25.8 kg/m2 Dr. Clifton Hung Work Phone: 9(011)392-868625 [place] [address] 12-01-2022 12:07-0500 Body weight 66.[address] Clifton Hung Work Phone: 5(383)826-921825 [place] [address] 11-19-2022 11:15-0500 Body height 160.[address] Clifton Hung Work Phone: 6(285)259-759525 [place] [address] 11-19-2022 11:15-0500 Body mass index (BMI) [Ratio] 26.4 kg/m2 Dr. Clifton Hung Work Phone: 2(463)757-733925 [place] [address] 11-19-2022 11:15-0500 Body weight 67.[address] Clifton Hung Work Phone: 3(481)013-124225 [place] [address] 11-19-2022 11:15-0500 Diastolic blood pressure 77 mm[Hg] Dr. Clifton Hung Work Phone: [facility] 11-19-2022 11:15-0500 Heart rate 71 /min Dr. Clifton Hung Work Phone: [facility] 11-19-2022 11:15-0500 SaO2% (BldA) [Mass fraction] 97 % Dr. Clifton Hung Work Phone: [facility] 11-19-2022 11:15-0500 Systolic blood pressure 144 mm[Hg] Dr. Clifton Hung Work Phone: [facility] 11-14-2022 13:11-0500 Body temperature 98.71 [degF] Shaneka Yang APRN.ADDRESSOGRAPH OPERATOR Work Phone: [facility] 11-14-2022 13:11-0500 Body weight 68.49 kg Shankea Yang APRN.ADDRESSOGRAPH OPERATOR Work Phone: [facility] 11-14-2022 13:11-0500 Diastolic blood pressure 82 mm[Hg] Shaneka Yang APRN.ADDRESSOGRAPH OPERATOR Work Phone: [facility] 11-14-2022 13:11-0500 Heart rate 77 /min Shaneka Yang APRN.ADDRESSOGRAPH OPERATOR Work Phone: [facility] 11-14-2022 13:11-0500 Respiratory rate 16 /min Shaneka Yang APRN.ADDRESSOGRAPH OPERATOR Work Phone: [facility] 11-14-2022 13:11-0500 SaO2% (BldA) [Mass fraction] 98 % Shaneka Yang APRN.ADDRESSOGRAPH OPERATOR Work Phone: [facility] 11-14-2022 13:11-0500 Systolic blood pressure 138 mm[Hg] Shaneka Yang APRN.ADDRESSOGRAPH OPERATOR Work Phone: [facility] 11-02-2022 13:16-0500 Body temperature 100.6 [degF] Shaneka Yang APRN.ADDRESSOGRAPH OPERATOR Work Phone: [facility] 11-02-2022 13:16-0500 Body weight 67.59 kg Shaneka Yang APRN.ADDRESSOGRAPH OPERATOR Work Phone: [facility] 11-02-2022 13:16-0500 Diastolic blood pressure 84 mm[Hg] Shaneka Yang APRN.ADDRESSOGRAPH OPERATOR Work Phone: [facility] 11-02-2022 13:16-0500 Heart rate 92 /min Shaneka Yang APRN.ADDRESSOGRAPH OPERATOR Work Phone: [facility] 11-02-2022 13:16-0500 Respiratory rate 18 /min Shaneka Yang APRN.ADDRESSOGRAPH OPERATOR Work Phone: [facility] 11-02-2022 13:16-0500 SaO2% (BldA) [Mass fraction] 96 % Shaneka Yang APRN.ADDRESSOGRAPH OPERATOR Work Phone: [facility] 11-02-2022 13:16-0500 Systolic blood pressure 132 mm[Hg] Shaneka Yang APRN.ADDRESSOGRAPH OPERATOR Work Phone: [facility] 10-05-2022 10:25-0500 Body temperature 97.11 [degF] Cherise Sifuentes PA-C Work Phone: [facility] 10-05-2022 10:25-0500 Body weight 67.13 kg Cherise Sifuentes PA-C Work Phone: [facility] 10-05-2022 10:25-0500 Diastolic blood pressure 80 mm[Hg] Cherise Sifuentes PA-C Work Phone: [facility] 10-05-2022 10:25-0500 Heart rate 72 /min Cherise Sifuentes PA-C Work Phone: [facility] 10-05-2022 10:25-0500 Respiratory rate 16 /min Cherise Sifuentes PA-C Work Phone: [facility] 10-05-2022 10:25-0500 Systolic blood pressure 110 mm[Hg] Cherise Sifuentes PA-C Work Phone: [facility] 09-03-2022 14:42-0400 Body weight 67.59 kg Clifton Hung MD Work Phone: [facility] 09-03-2022 14:42-0400 Diastolic blood pressure 76 mm[Hg] Clifton Hung MD Work Phone: [facility] 09-03-2022 14:42-0400 Heart rate 84 /min Clifton Hung MD Work Phone: [facility] 09-03-2022 14:42-0400 SaO2% (BldA) [Mass fraction] 96 % Clifton Hung MD Work Phone: [facility] 09-03-2022 14:42-0400 Systolic blood pressure 120 mm[Hg] Clifton Hung MD Work Phone: [facility] 09-03-2022 10:35-0400 Body mass index (BMI) [Ratio] 26.5 kg/m2 Dr. Clifton Hung Work Phone: [facility] 09-03-2022 10:35-0400 Body weight 68.[address] Clifton Hung Work Phone: [facility] 09-03-2022 10:35-0400 Diastolic blood pressure 69 mm[Hg] Dr. Clifton Hung Work Phone: 3(618)157-052806 [place] [address] 09-03-2022 10:35-0400 Heart rate 77 /min Dr. Clifton Hung Work Phone: [facility] 09-03-2022 10:35-0400 Respiratory rate 16 /min Dr. Clifton Hung Work Phone: [facility] 09-03-2022 10:35-0400 Systolic blood pressure 102 mm[Hg] Dr. Clifton Hung Work Phone: [facility] 08-28-2022 10:22-0400 Body weight 66.68 kg Sima Dumont APRN.ADDRESSOGRAPH OPERATOR Work Phone: [facility] 08-28-2022 10:22-0400 Diastolic blood pressure 70 mm[Hg] Sima Dumont APRN.ADDRESSOGRAPH OPERATOR Work Phone: [facility] 08-28-2022 10:22-0400 Systolic blood pressure 98 mm[Hg] Sima Dumont APRN.ADDRESSOGRAPH OPERATOR Work Phone: [facility] 08-28-2022 08:23-0400 Body height 161 cm Chad Russellenter POWER LINEWORKER.ADDRESSOGRAPH OPERATOR Work Phone: [facility] 08-28-2022 08:23-0400 Body temperature 96.8 [degF] Chad Russellenter POWER LINEWORKER.ADDRESSOGRAPH OPERATOR Work Phone: [facility] 08-28-2022 08:23-0400 Body weight 67.13 kg Chad Russellenter POWER LINEWORKER.ADDRESSOGRAPH OPERATOR Work Phone: [facility] 08-28-2022 08:23-0400 Diastolic blood pressure 76 mm[Hg] [place] Mariee POWER LINEWORKER.ADDRESSOGRAPH OPERATOR Work Phone: [facility] 08-28-2022 08:23-0400 Heart rate 92 /min Chadnathaniel Mariee POWER LINEWORKER.ADDRESSOGRAPH OPERATOR Work Phone: [facility] 08-28-2022 08:23-0400 Systolic blood pressure 115 mm[Hg] Burlingtonnathaniel Mariee POWER LINEWORKER.ADDRESSOGRAPH OPERATOR Work Phone: [facility] 07-09-2022 07:50-0400 Body weight 68.04 kg Sima Dumont POWER LINEWORKER.ADDRESSOGRAPH OPERATOR Work Phone: [facility] 07-09-2022 07:50-0400 Diastolic blood pressure 68 mm[Hg] Sima Dumont POWER LINEWORKER.ADDRESSOGRAPH OPERATOR Work Phone: [facility] 07-09-2022 07:50-0400 Systolic blood pressure 118 mm[Hg] Sima Dumont APRN.ADDRESSOGRAPH OPERATOR Work Phone: [facility] 06-30-2022 12:34-0400 Body temperature 97.39 [degF] Martha Athy PA-C Work Phone: [facility] 06-30-2022 12:34-0400 Body weight 68.13 kg Martha Athy PA-C Work Phone: [facility] 06-30-2022 12:34-0400 Diastolic blood pressure 78 mm[Hg] Martha Athy PA-C Work Phone: [facility] 06-30-2022 12:34-0400 Heart rate 90 /min Martha Athy PA-C Work Phone: [facility] 06-30-2022 12:34-0400 Respiratory rate 18 /min Martha Athy PA-C Work Phone: [facility] 06-30-2022 12:34-0400 SaO2% (BldA) [Mass fraction] 99 % Martha Athy PA-C Work Phone: [facility] 06-30-2022 12:34-0400 Systolic blood pressure 124 mm[Hg] Martha Athy PA-C Work Phone: [facility] 05-28-2022 14:03-0400 Body height 160.[address] Clifton Hung Work Phone: [facility] Work Phone: 02-25-2022 09:57-0400 Body temperature 97.39 [degF] [place] Mareie POWER LINEWORKER.ADDRESSOGRAPH OPERATOR Work Phone: [facility] 02-25-2022 09:57-0400 Body weight 71.22 kg Chad Mariee POWER LINEWORKER.ADDRESSOGRAPH OPERATOR Work Phone: [facility] 02-25-2022 09:57-0400 Diastolic blood pressure 70 mm[Hg] [place] Mariee POWER LINEWORKER.ADDRESSOGRAPH OPERATOR Work Phone: [facility] 02-25-2022 09:57-0400 Heart rate 74 /min [place] Mariee POWER LINEWORKER.ADDRESSOGRAPH OPERATOR Work Phone: [facility] 02-25-2022 09:57-0400 Systolic blood pressure 114 mm[Hg] [place] Mariee POWER LINEWORKER.ADDRESSOGRAPH OPERATOR Work Phone: [facility] 07-22-2017 16:09-0400 Heart rate 60 /min [...] 09:44-0400 BP Diastolic 68 mm[Hg] Manda Cisco [facility] Work Phone: 04-23-2017 09:44-0400 BP Systolic 118 mm[Hg] Manda Cinday [facility] Work Phone: 04-23-2017 09:44-0400 Height 160.02 cm Manda Cinday [facility] Work Phone: 04-23-2017 09:44-0400 Pulse (Heart Rate) 72 /min Manda Marthey [facility] Work Phone: 04-23-2017 09:44-0400 Respiratory Rate 16 /min Manda Kaushalhey [facility] Work Phone: 04-23-2017 09:44-0400 Weight 72.12 kg Manda Marthey [facility] Work Phone: 01-20-2017 11:03-0400 Heart [...] 05-17-2025 ambulatory Clifton Hung MD Work Phone: [facility] Comment on above: Allied Health Visit (Medication Adherence Outreach ) Start: 05-14-2025 End: 05-14-2025 ambulatory Clifton Hung MD Work Phone: [facility] Comment on above: Allied Health Visit (Medication Adherence Outreach/) Start: 04-26-2025 End: 04-26-2025 Follow-up encounter Francine Madrid APRN.CNP Work Phone: [facility] Start: 04-24-2025 End: 04-24-2025 Patient encounter procedure Francine Madrid APRN.CNP Work Phone: [facility] Comment on above: Urinary frequency (P rimary Dx); Urinary tract infection with hematuria, site unspecified Start: 04-24-2025 End: 04-24-2025 ambulatory CLIFTON HUNG Facility:[facility] Start: 04-23-2025 End: 04-23-2025 ambulatory Sima Dmuont APRN.CNP Work Phone: OB/Gynecology Comment on above: UTI Start: 04-19-2025 End: 04-19-2025 Patient encounter procedure Cherise Sifuentes PA-C Work Phone: [facility] Comment on above: Encounter for Medica re annual wellness exam (Primary Dx); Advance directive discussed with patient; Controlled type 2 diabetes mellitus without complication, without long-term current use of insulin (HCC); Type 2 diabetes mellitus with hyperlipidemia (HCC); Essential hypertension; Mixed hyperlipidemia; Statin intolerance; Drug-induced myopathy; 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); RLS (restless legs syndrome); 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; Pancreatic insufficiency (HCC); Vitamin D deficiency; Hypomagnesemia; History of hyperparathyroidism; Living will on file at physician's office; Encounter for screening examination for other mental health and behavioral disorders; Screening for depression Start: 04-19-2025 End: 04-19-2025 ambulatory CLIFTON HUNG Facility:[facility] Start: 04-12-2025 End: 04-12-2025 ambulatory Clifton Hung MD Work Phone: [facility] Start: 04-12-2025 End: 04-12-2025 Patient encounter procedure Clifton Hung MD Work Phone: [facility] Comment on above: Population Health Na vigation Outreach ([employer] [facility] ) Start: 04-09-2025 End: 04-09-2025 Patient encounter procedure Sima Dumont APRN.ADDRESSOGRAPH OPERATOR Work Phone: OB/Gynecology Comment on above: Encounter for gyneco logic examination for high-risk patient covered by Medicare (Primary Dx); Genitourinary syndrome of menopause; KLAUS (stress urinary incontinence, female); Long-term current use of tamoxifen; History of left breast cancer; Encounter for screening for osteoporosis; Asymptomatic postmenopausal status Start: 04-09-2025 End: 04-09-2025 ambulatory SIMA DUMONT Facility:[facility] Start: 04-06-2025 End: 04-06-2025 ambulatory CLIFTON HUNG Facility:[facility] Start: 04-04-2025 End: 04-04-2025 ambulatory Rocco Rendon RN Work Phone: [employer] [employer] [facility] Comment on above: Pharyngitis Start: 03-21-2025 End: 03-21-2025 Patient encounter procedure Chad Mariee APRN.ADDRESSOGRAPH OPERATOR Work Phone: Hematology/Oncology Start: 03-21-2025 End: 03-21-2025 ambulatory Chad Mariee APRN.ADDRESSOGRAPH OPERATOR Work Phone: Hematology/Oncology Comment on above: Ductal carcinoma in situ (DCIS) of left breast (Primary Dx); Encounter for screening mammogram for high-risk patient Start: 03-16-2025 End: 03-16-2025 Patient encounter procedure Alexa Matute MD Work Phone: Endocrinology Comment on above: Cold intolerance (Pr imary Dx); Disorder of adrenal gland (HCC) Start: 03-16-2025 End: 03-16-2025 ambulatory CLIFTON HUNG Facility:[facility] Start: 03-14-2025 ambulatory CLIFTON HUNG Facili ty:[facility] Start: 03-14-2025 End: 03-14-2025 Subsequent hospital visit by physician Screen Mammo [facility] Comment on above: 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] Start: 03-13-2025 End: 03-13-2025 ambulatory Clifton Hung MD Work Phone: [facility] [place] Start: 03-13-2025 End: 03-13-2025 Patient encounter procedure Clifton Hung MD Work Phone: [facility] Comment on above: Population Health Na vigation Outreach ([facility] ) Start: 02-25-2025 End: 04-27-2025 Follow-up encounter Alexa Matute MD Work Phone: Endocrinology Start: 02-21-2025 End: 02-21-2025 ambulatory CLIFTON HUNG Facility:[facility] Start: 02-19-2025 End: 02-19-2025 Office outpatient visit 25 minutes Ori Lord DO Work Phone: [facility] Comment on above: Urinary incontinence , mixed (Primary Dx); Microscopic hematuria; Genitourinary syndrome of menopause; History of UTI; Adenoma of right adrenal gland; Renal cyst Start: 02-19-2025 End: 02-19-2025 ambulatory ORI LORD Facility:[id number] Start: 02-16-2025 End: 02-16-2025 ambulatory ALEXA MATUTE Facility:[facility] Start: 02-16-2025 End: 02-16-2025 Patient encounter procedure Alexa Matute MD Work Phone: Endocrinology Comment on above: Adenoma of right adr enal gland (Primary Dx); Disorder of adrenal gland (HCC) Start: 01-30-2025 End: 01-30-2025 ambulatory Valarie Russell [facility] Work Phone: [facility] Start: 01-30-2025 End: 01-30-2025 Patient encounter procedure Valarie Russell [facility] Work Phone: [facility] Comment on above: Allied Health Visit Start: 01-23-2025 End: 03-25-2025 Follow-up encounter Mandy Hillman RN Endocrinology Start: 01-01-2025 End: 01-01-2025 Follow-up encounter Francine Madrid APRN.ADDRESSOGRAPH OPERATOR Work Phone: [facility] [place] Comment on above: COVID-19 (Primary Dx ) Start: 12-31-2024 End: 01-02-2025 Refill Chad Mariee APRN.ADDRESSOGRAPH OPERATOR Work Phone: Hematology/Oncology Comment on above: Refill Request Start: 12-29-2024 End: 12-29-2024 Patient encounter procedure Francine Madrid APRN.ADDRESSOGRAPH OPERATOR Work Phone: [facility] [place] Comment on above: Acute cough (Primary Dx); Essential hypertension Start: 12-29-2024 End: 12-29-2024 ambulatory FRANCINE MADRID Facility:[facility] Start: 12-14-2024 End: 12-14-2024 Refill Clifton Hung MD Work Phone: [facility] [place] Comment on above: Refill Request Start: 11-07-2024 End: 11-07-2024 ambulatory [facility] Facility:[facility] Start: 11-03-2024 End: 11-03-2024 ambulatory [facility] Facility:[facility] Start: 11-03-2024 End: 11-03-2024 Patient encounter procedure Alexa Matute MD Work Phone: Endocrinology Comment on above: Adenoma of right adr enal gland (Primary Dx) Start: 10-23-2024 End: 10-23-2024 ambulatory Clifton Hung Facility:[facility] Start: 10-18-2024 End: 10-18-2024 ambulatory CLIFTON HUNG Facility:[facility] Start: 10-18-2024 End: 10-18-2024 Ophthalmic examination and evaluation Clifton Hung MD Work Phone: [facility] Start: 10-18-2024 End: 10-18-2024 Patient encounter procedure Clifton Hung MD Work Phone: [facility] Comment on above: Type 2 diabetes micaela itus with hyperlipidemia (HCC) (HCC) (Primary Dx); Controlled type 2 diabetes mellitus without complication, without long-term current use of insulin (HCC); Diabetic eye exam (HCC); Essential hypertension; Mixed hyperlipidemia; 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); Ductal carcinoma in situ (DCIS) of left breast; Narcolepsy without cataplexy; Vitamin D deficiency; Right lateral epicondylitis; Medication management; Gastroesophageal reflux disease without esophagitis Start: 10-14-2024 End: 10-14-2024 ambulatory CLIFTON HUNG Facility:[facility] Start: 10-13-2024 End: 10-13-2024 Telephone encounter Clifton Hung MD Work Phone: [facility] [place] Comment on above: Lab Orders Start: 10-03-2024 End: 10-03-2024 ambulatory CLIFTON HUNG Facility:[facility] Start: 10-02-2024 End: 10-02-2024 Chart abstracting Shakeel Yang MA [facility] [place] Comment on above: Consult (Outside Oph thalmology /) Start: 10-02-2024 End: 10-02-2024 ambulatory ALEXA MATUTE Facility:[facility] Start: 09-26-2024 End: 09-26-2024 ambulatory Clifton Hung MD Work Phone: [facility] [place] Comment on above: ER visit Start: 09-22-2024 End: 09-22-2024 ambulatory ALEXA HURST [employer]GLIN [employer] Facility:[facility] Start: 09-22-2024 End: 09-22-2024 Patient encounter procedure Alexa Matute MD Work Phone: Endocrinology Comment on above: Adenoma of right adr enal gland (Primary Dx) Start: 09-14-2024 End: 09-14-2024 ambulatory Chad Mariee APRN.ADDRESSOGRAPH OPERATOR Work Phone: Hematology/Oncology Comment on above: Ductal carcinoma in situ (DCIS) of left breast (Primary Dx); Encounter for screening mammogram for high-risk patient Start: 09-14-2024 End: 09-14-2024 Patient encounter procedure Chad Mariee APRN.ADDRESSOGRAPH OPERATOR Work Phone: Hematology/Oncology Start: 08-15-2024 End: 08-15-2024 ambulatory ALEXA MATUTE Facility:[facility] Start: 08-15-2024 End: 08-15-2024 Subsequent hospital visit by physician Jasmyne [facility] (I-Stat) Work Phone: Cat Scan Comment on above: Adenoma of right adr enal gland [D35.01] Start: 08-08-2024 End: 08-08-2024 ambulatory [facility] Facility:[facility] Start: 08-04-2024 End: 08-04-2024 Office outpatient visit 15 minutes Ori Mbanugo DO Work Phone: [employer] Comment on above: Urinary incontinence , mixed (Primary Dx); Microscopic hematuria; Genitourinary syndrome of menopause; History of UTI; Adenoma of right adrenal gland Start: 08-04-2024 End: 08-04-2024 ambulatory ORI MBANUGO Facility:[id number] Start: 08-02-2024 End: 08-02-2024 Refill Cherise Sifuentes PA-C Work Phone: [facility] Comment on above: Refill Request Start: 07-17-2024 End: 07-17-2024 Refill Francine Madrid APRN.CNP Work Phone: [facility] [place] Comment on above: Refill Request Start: 07-11-2024 End: 07-11-2024 [facility] Facility[facility] Start: 07-11-2024 End: 07-11-2024 Patient encounter procedure Alexa Matute MD Work Phone: Endocrinology Comment on above: Adenoma of right adr enal gland (Primary Dx); Disorder of adrenal gland (HCC) Start: 07-05-2024 End: 07-11-2024 ambulatory Clifton Hung MD Work Phone: [facility] [place] Comment on above: update Start: 07-04-2024 End: 07-04-2024 Office outpatient visit 25 minutes Ori Mbanugo DO Work Phone: [employer] Comment on above: Urinary incontinence , mixed (Primary Dx); Microscopic hematuria; Adenoma of right adrenal gland; Renal cyst Start: 07-04-2024 End: 07-04-2024 ambulatory ORI LORD Facility:[id number] Start: 06-26-2024 End: 06-26-2024 Chart abstracting Clifton Hung MD Work Phone: [facility] Comment on above: Outside Imaging Start: 06-23-2024 End: 06-23-2024 [facility] Facility:[facility] Start: 06-19-2024 Chart abstracting Shakeel Valladares [facility] [place] Comment on above: Results (Outside res ults /) Start: 06-19-2024 [facility] Facility :[facility] Start: 06-19-2024 End: 06-19-2024 [facility] Facility:[facility] Start: 06-15-2024 Chart abstracting Clifton romero MD Work Phone: [facility] Comment on above: Outside Pvmc-Bxo-IZT Ordered Start: 06-14-2024 Chart abstracting Clifton romero MD Work Phone: [facility] Comment on above: Outside Tlim-Knc-OKU Ordered Start: 06-09-2024 Chart abstracting Shakeel Valladares [facility] [place] Comment on above: Results (Outside lab results /) Start: 06-06-2024 Chart abstracting Clifton romero MD Work Phone: [facility] Comment on above: Outside Ghpp-Ecb-DIT Ordered Start: 06-05-2024 End: 06-06-2024 [facility] Facility:[facility] Start: 06-05-2024 End: 06-05-2024 [facility] Facility:[facility] Start: 05-23-2024 Telephone encounter Ori Lord DO Work Phone: [employer] Comment on above: Consult Start: 05-23-2024 End: 05-23-2024 Office outpatient visit 15 minutes Ori Lord DO Work Phone: [employer] Comment on above: Urinary incontinence , mixed (Primary Dx); Genitourinary syndrome of menopause; Microscopic hematuria; Adenoma of right adrenal gland Start: 05-23-2024 End: 05-23-2024 ambulatory ORI LORD Facility:[id number] Start: 05-01-2024 End: 05-01-2024 Patient encounter procedure Julio Tavarez APRN.ADDRESSOGRAPH OPERATOR Work Phone: [facility] Comment on above: Burn, foot, second d egree, left, initial encounter (Primary Dx) Start: 04-25-2024 Chart abstracting Shakeel Yang MA [facility] [place] Comment on above: Consult (Cardiology /) Start: 04-25-2024 End: 04-25-2024 Patient encounter procedure Ori Lord DO Work Phone: [facility] Comment on above: Lower urinary tract symptoms (LUTS) (Primary Dx); Urinary incontinence, mixed; Microscopic hematuria; History of UTI; Abnormal findings on diagnostic imaging of urinary organs Start: 04-25-2024 End: 04-25-2024 [facility] ORI LORD Facility:[id number] Start: 04-21-2024 End: 04-21-2024 ambulatory Clifton [facility] Facility:[facility] Start: 04-20-2024 Telephone encounter Francine cuellar APRN.ADDRESSOGRAPH OPERATOR Work Phone: [facility] Comment on above: Results Start: 04-20-2024 [facility] Facility :[facility] Start: 04-18-2024 Telephone encounter Francine cuellar APRN.ADDRESSOGRAPH OPERATOR Work Phone: [facility] Comment on above: Patient Update Start: 04-17-2024 End: 04-17-2024 Patient encounter procedure Francine Madrid APRN.ADDRESSOGRAPH OPERATOR Work Phone: [facility] Comment on above: Essential hypertensi on [...] type 2 diabetes mellitus (HCC); 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) Start: 03-23-2024 ambulatory lCifton allen MD Work Phone: [facility] [place] Comment on above: test results Start: 03-23-2024 Telephone encounter Clifton Hung MD Work Phone: Family [facility] [place] Comment on above: Medication Problem Start: 03-22-2024 End: 03-22-2024 Patient encounter procedure Clifton Hung MD Work Phone: [facility] [place] Comment on above: Pharyngitis, unspeci fied etiology [...] Start: 03-09-2024 Documentation procedure Mammog chidi Coordinator [facility] Department Start: 03-09-2024 Letter encounter Mammography Coordinator [facility] Start: 03-09-2024 End: 03-09-2024 Subsequent hospital visit by physician Screen Mammo [facility] Mammogram Comment on above: 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] Start: 02-29-2024 Refill Clifton allen MD Work Phone: [facility] [place] Comment on above: Refill Request Start: 02-14-2024 Refill Clifton allen MD Work Phone: [facility] Comment on above: Refill Request Start: 01-26-2024 Refill Francine resendiz APRN.ADDRESSOGRAPH OPERATOR Work Phone: [facility] Comment on above: Refill Request Start: 01-21-2024 ambulatory Clifton allen MD Work Phone: [facility] Comment on above: Lisinopril and tests results Start: 01-18-2024 ambulatory Clifton allen MD Work Phone: [facility] Comment on above: Lab Start: 01-18-2024 End: 01-18-2024 Patient encounter procedure Sima Dumont APRN.ADDRESSOGRAPH OPERATOR Work Phone: OB/Gynecology Comment on above: Dysuria (Primary Dx) ; Urinary frequency; Vaginal discharge; Genitourinary syndrome of menopause Start: 01-17-2024 Telephone encounter Clifton Hung MD Work Phone: [facility] Comment on above: High Blood Sugar; Or ders Start: 01-14-2024 End: 01-14-2024 Patient encounter procedure Francine Madrid APRN.ADDRESSOGRAPH OPERATOR Work Phone: [facility] Comment on above: Essential hypertensi on (Primary Dx) Start: 01-10-2024 Chart abstracting Clifton romero MD Work Phone: [facility] Comment on above: Outside Diabetic Eye Exam Start: 01-10-2024 Ophthalmic examinati on and evaluation Clifton Hung MD Work Phone: [facility] Start: 01-03-2024 End: 01-03-[address] Clifton Hung Work Phone: [facility] Work Phone: Start: 01-03-2024 End: 01-03-[address] Clifton Hung Work Phone: [facility] Work Phone: Start: 01-03-2024 End: 01-03-2024 ambulatory Carson Alcantar Facility:[facility] Start: 12-31-2023 End: 12-31-2023 Patient encounter procedure Francine Madrid APRN.ADDRESSOGRAPH OPERATOR Work Phone: [facility] Comment on above: Vaginal yeast infect ion (Primary Dx); Essential hypertension Start: 12-28-2023 Chart abstracting Clifton romero MD Work Phone: [facility] Comment on above: ER Discharge Summary Start: 12-28-2023 End: 12-28-2023 Emergency department patient visit Dr. Clifton Hung Work Phone: [facility]-Emergency Department Work Phone: Start: 12-24-2023 ambulatory Clifton allen MD Work Phone: [facility] Comment on above: Influenza A Start: 12-22-2023 End: 12-22-2023 Emergency department patient visit Dr. Clifton Hung Work Phone: [facility]-Emergency Department Work Phone: Start: 12-10-2023 Chart abstracting Clifton romero MD Work Phone: [facility] Comment on above: Outside Edob-Eqe-NKV Ordered Start: 12-08-2023 End: 12-08-[address] Clifton Hung Work Phone: [facility] Work Phone: Start: 12-08-2023 End: 12-08-[address] Clifton Hung Work Phone: [facility]-Laboratory Work Phone: Start: 12-08-2023 End: 12-08-2023 ambulatory [facility] Facility:[facility] Start: 12-06-2023 End: 12-06-[address] Clifton Hung Work Phone: [facility] Work Phone: Start: 12-06-2023 End: 12-06-2023 ambulatory [facility] Facility:[facility] Start: 10-08-2023 End: 10-08-2023 Patient encounter procedure Francine Madrid APRN.CNP Work Phone: [facility] Comment on above: Essential hypertensi on (Primary Dx); Controlled type 2 diabetes mellitus without complication, without long-term current use of insulin (HCC); Mixed hyperlipidemia; Narcolepsy without cataplexy; Ductal carcinoma in situ (DCIS) of left breast; RLS (restless legs syndrome); Obstructive sleep apnea on CPAP Start: 10-06-2023 Non-patient / Non-visit Dr. Gabino Hung Work Phone: [facility] Work Phone: Start: 10-03-2023 Non-patient / Non-visit Dr. Gabino Hung Work Phone: [facility] Start: 10-01-2023 End: 10-01-[address] Clifton Hung Work Phone: [facility] Work Phone: Start: 10-01-2023 End: 10-01-[address] [facility]ifton [facility]: Start: 09-21-2023 Non-patient / Non-visit Dr. Gabino Hung Work Phone: [facility] Work Phone: Start: 09-15-2023 Chart abstracting Clifton romero MD Work Phone: [facility] Comment on above: Outside Ophtalmology Start: 09-11-2023 End: 09-11-2023 Emergency department patient visit Dr. Clifton Hung Work Phone: [facility]Emergency Department Work Phone: Start: 09-08-[address] Yolande Hung [facility] Start: 08-31-2023 Chart abstracting Clifton romero MD Work Phone: [facility] Comment on above: Clinical Update Start: 08-30-2023 End: 08-30-[address] Clifton Hung Work Phone: [facility] Work Phone: Start: 08-02-2023 Chart abstracting Clifton romero MD Work Phone: [facility] Comment on above: Outside Ophthalmolog y Start: 07-23-2023 End: 07-23-2023 Patient encounter procedure Sima Dumont APRN.CNP Work Phone: OB/Gynecology Comment on above: Dysuria (Primary Dx) ; Urine frequency; Vaginal discharge; Vulvovaginal discomfort Start: 07-15-2023 End: 07-15-[address] Clifton Hung Work Phone: [facility] Work Phone: Start: 06-15-2023 Chart abstracting Clifton romero MD Work Phone: [facility] Comment on above: Outside Ophthalmolog y Start: 06-07-2023 Chart abstracting Clifton romero MD Work Phone: [facility] Comment on above: Consult Start: 04-20-2023 End: 05-07-[address] Clifton Hung Work Phone: [facility] Work Phone: Start: 04-20-2023 End: 05-07-[address] Clifton Hung Work Phone: [facility] Work Phone: Start: 04-09-2023 Chart abstracting Clifton romero MD Work Phone: [facility] Comment on above: Outside Diabetic Eye Exam Start: 04-08-2023 ambulatory Clifton allen MD Work Phone: [facility] Comment on above: re: vitamins Start: 04-08-2023 End: 04-08-2023 Ophthalmic examination and evaluation Clifton Hung MD Work Phone: [facility] Start: 04-08-2023 End: 04-08-2023 Patient encounter procedure Clifton Hung MD Work Phone: [facility] [place] Comment on above: Encounter for Medica re annual wellness exam (Primary Dx); Controlled type 2 diabetes mellitus without complication, without long-term current use of insulin (HCC); Diabetic eye exam (HCC); Essential hypertension; Mixed hyperlipidemia; 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 Clifton Hung Work Phone: [facility] Work Phone: Start: 02-26-2023 End: 02-26-2023 ambulatory Chad Mariee APRN.CNP Work Phone: Hematology/Oncology Comment on above: Ductal carcinoma in situ (DCIS) of left breast (Primary Dx); Encounter for screening mammogram for high-risk patient Start: 02-26-2023 End: 02-26-2023 Patient encounter procedure Chad Mariee APRN.CNP Work Phone: [facility] Start: 02-24-2023 End: 02-24-2023 Subsequent hospital visit by physician Screen Mammo [facility] Mammogram Comment on above: Breast neoplasm, Tis (DCIS), left [D05.12] Start: 02-22-2023 Chart abstracting Clifton romero MD Work Phone: [facility] [place] Comment on above: Outside Neurology Start: 02-19-2023 Chart abstracting Clifton romero MD Work Phone: [facility] Comment on above: Outside Cardiology Start: 02-18-2023 End: 02-18-[address] Clifton Hung Work Phone: [facility] Work Phone: Start: 02-17-2023 ambulatory Chad lance POWER LINEWORKERCheyADDRESSOGRAPH OPERATOR Work Phone: Hematology/Oncology Comment on above: Lab work Start: 02-09-2023 End: 03-07-[address] [facility]if[facility] Start: 02-09-2023 End: 02-09-2023 Patient encounter procedure Cherise Sifuentes PA-C Work Phone: [facility] Comment on above: Bacterial sinusitis (Primary Dx) Start: 02-08-2023 Refill Chad lance APRN.ADDRESSOGRAPH OPERATOR Work Phone: Hematology/Oncology Comment on above: Refill Request Start: 02-05-2023 ambulatory Clifton allen MD Work Phone: [facility] Comment on above: Express care visit Start: 02-05-2023 End: 02-05-2023 Patient encounter procedure Lori Barriga APRN.ADDRESSOGRAPH OPERATOR Work Phone: [facility] Comment on above: URI with cough and c ongestion (Primary Dx) Start: 01-11-2023 End: 01-11-2023 ambulatory TEO Kaplan [facility] Start: 01-07-2023 End: 02-05-[address] Clifton Hung Work Phone: [facility] Work Phone: Start: 01-07-2023 End: 02-05-[address] [facility]ifton [facility] Start: 12-17-2022 Telephone encounter Chad pollard APRN.ADDRESSOGRAPH OPERATOR Work Phone: Hematology/Oncology Comment on above: Patient Question Start: 12-11-2022 ambulatory Clifton allen MD Work Phone: [facility] Comment on above: Test results Start: 12-10-2022 End: 12-10-[address] Clifton Hung Work Phone: [facility] Start: 12-10-2022 ambulatory Sima Dumont APRN.ADDRESSOGRAPH OPERATOR Work Phone: OB/Gynecology Comment on above: re: Diagnosis Start: 12-09-2022 End: 12-09-2022 Patient encounter procedure Sima Dumont APRN.ADDRESSOGRAPH OPERATOR Work Phone: OB/Gynecology Comment on above: Vaginal discharge (P rimary Dx) Start: 12-01-2022 Non-patient / Non-visit Dr. Gabino Hung Work Phone: [facility] Start: 12-01-2022 End: 12-01-2022 Admission to same day surgery center Dr. Clifton Hung Work Phone: [facility]-Endoscopy Start: 12-01-2022 End: 12-01-[address] Clifton Hung Work Phone: [facility] Work Phone: Start: 11-25-2022 Telephone encounter Chad pollard APRN.ADDRESSOGRAPH OPERATOR Work Phone: Hematology/Oncology Comment on above: Results Start: 11-25-2022 End: 11-25-2022 Subsequent hospital visit by physician [facility] (I-Stat) Work Phone: Cat Scan Comment on above: Abnormal CT of the a bdomen [R93.5] Start: 11-23-2022 End: 11-23-[address] Clifton Hung Work Phone: [facility] Work Phone: Start: 11-23-2022 End: 11-23-[address] Clifton Hung Work Phone: [facility]-Laboratory, Specimen Start: 11-19-2022 End: 11-19-[address] Clifton Hung Work Phone: [facility] Work Phone: Start: 11-19-2022 End: 11-19-[address] Clifton Hung Work Phone: [facility]Laboratory Start: 11-19-2022 End: 11-19-[address] 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) (Primary Dx); Ingrowing toenail Start: 11-02-2022 ambulatory Cherise eubanks PA-C Work Phone: [facility] Comment on above: Illness Start: 11-02-2022 End: 11-02-2022 Patient encounter procedure Shaneka Yang APRN.ADDRESSOGRAPH OPERATOR Work Phone: [facility] Comment on above: URI, acute (Primary Dx) Start: 10-28-2022 Telephone encounter Chad pollard APRN.ADDRESSOGRAPH OPERATOR Work Phone: Hematology/Oncology Comment on above: Results (Mammogram r esults) Start: 10-28-2022 End: 10-28-2022 Subsequent hospital visit by physician Diagnostic Mammo [facility] Mammogram Start: 10-05-2022 End: 10-05-2022 Patient encounter procedure Cherise Sifuentes PA-C Work Phone: [facility] Comment on above: Controlled type 2 di abetes mellitus without complication, without long-term current use of insulin (HCC) (Primary Dx); Essential hypertension; Mixed hyperlipidemia; Vitamin D deficiency; Upper back pain; Need for vaccination; 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); Ductal carcinoma in situ (DCIS) of left breast; History of hyperparathyroidism Start: 09-17-2022 Telephone encounter Clifton Hung MD Work Phone: [facility] Comment on above: Results Start: 09-16-2022 ambulatory Chad lance POWER LINEWORKER.ADDRESSOGRAPH OPERATOR Work Phone: Hematology/Oncology Comment on above: CT Scan results test results Start: 09-16-2022 Telephone encounter Chad pollard APRN.ADDRESSOGRAPH OPERATOR Work Phone: Hematology/Oncology Comment on above: Future Appointment; Results Start: 09-15-2022 End: 09-15-2022 Subsequent hospital visit by physician [facility] W[facility] Cat Scan Start: 09-10-2022 ambulatory Chad lance POWER LINEWORKER.ADDRESSOGRAPH OPERATOR Work Phone: Hematology/Oncology Comment on above: Tamoxifen Start: 09-09-2022 ambulatory Clifton allen MD Work Phone: [facility] Comment on above: Ultrasound results Start: 09-09-2022 Telephone encounter Cherise felix PA-C Work Phone: [facility] Comment on above: Results Start: 09-09-2022 End: 09-09-2022 Subsequent hospital visit by physician [facility] W[facility] Mob 2 Work Phone: Radiology Comment on above: Epigastric pain [R10 .13] Start: 09-08-2022 End: 09-08-2022 Nursing evaluation of patient and report Mi Nurse Work Phone: [facility] Comment on above: Epigastric pain Start: 09-07-2022 ambulatory Clifton allen MD Work Phone: [facility] Comment on above: H Pylori test Start: 09-04-2022 ambulatory Clifton allen MD Work Phone: [facility] Comment on above: H Pylori test Start: 09-03-2022 End: 09-03-2022 Patient encounter procedure Clifton Hung MD Work Phone: [facility] Comment on above: Epigastric pain (Malia alex Dx); Nausea; Need for vaccination Start: 09-03-2022 End: 09-03-[address] Clifton Hung Work Phone: [facility] Start: 08-28-2022 End: 08-28-2022 ambulatory Chad Mariee APRN.ADDRESSOGRAPH OPERATOR Work Phone: Hematology/Oncology Comment on above: Breast neoplasm, Tis (DCIS), left (Primary Dx); Encounter for screening mammogram for high-risk patient; Nausea; Pain of upper abdomen Medical Tests Start: 08-28-2022 End: 08-28-2022 Patient encounter procedure Sima Dumont APRN.ADDRESSOGRAPH OPERATOR Work Phone: OB/Gynecology Comment on above: Vaginal atrophy (Malia alex Dx); Vulvar dermatitis Start: 08-28-2022 End: 08-28-2022 Patient encounter procedure Chad Mariee APRN.ADDRESSOGRAPH OPERATOR Work Phone: [facility] Start: 08-05-2022 ambulatory Sima Dumont APRN.ADDRESSOGRAPH OPERATOR Work Phone: [facility] Start: 08-05-2022 Patient encounter procedure Alejandra Dumont APRN.ADDRESSOGRAPH OPERATOR Work Phone: OB/Gynecology Comment on above: Appointment Start: 07-15-2022 Refill Alberto Georges MD Work Phone: Hematology/Oncology Comment on above: Refill Request Start: 07-09-2022 End: 07-09-2022 Patient encounter procedure Sima Dumont APRN.ADDRESSOGRAPH OPERATOR Work Phone: OB/Gynecology Comment on above: Vagina itching (Prim teo Dx); Dysuria; Urinary frequency; Superficial dyspareunia; Mixed incontinence; Vaginal atrophy; Cystocele, midline; Long-term current use of tamoxifen Start: 07-08-2022 ambulatory Clifton allen MD Work Phone: [facility] Comment on above: infection INVESTMENT COUNSELOR Start: 07-07-2022 Non-patient / Non-visit Dr. Gabino Hung Work Phone: [facility] Start: 07-07-2022 End: 07-07-[address] Clifton Hung Work Phone: [facility] Work Phone: Start: 07-07-2022 End: 07-07-[address] [facility] [facility] Start: 07-03-2022 ambulatory Clifton allen MD Work Phone: [facility] Comment on above: Infection Start: 06-30-2022 ambulatory Clifton allen MD Work Phone: [facility] Comment on above: A new issue Start: 06-30-2022 End: 06-30-2022 Patient encounter procedure Marhta Montoya PA-C Work Phone: [facility] Comment on above: Nasal lesion (Primar y Dx) Start: 06-16-2022 ambulatory Clifton allen MD Work Phone: [facility] Comment on above: infection Start: 06-03-[address] Yolande [facility] Start: 05-29-2022 Non-patient / Non-visit Dr. Gabino Hung Work Phone: [facility] Start: 05-28-2022 End: 05-28-[address] Clifton Hung Work Phone: [facility] Start: 05-28-2022 End: 05-28-[address] Clifton Hung Work Phone: [facility] Start: 04-03-2022 Patient encounter status Mahesh Hung MD Work Phone: [facility] Work Phone: Start: 03-09-2022 ambulatory Chad lance APRN.ADDRESSOGRAPH OPERATOR Work Phone: Hematology/Oncology Comment on above: Tamoxifen Heartburn Start: 02-25-2022 End: 02-25-2022 ambulatory Chad Mariee APRN.ADDRESSOGRAPH OPERATOR Work Phone: Hematology/Oncology Comment on above: Breast neoplasm, Tis (DCIS), left (Primary Dx) Start: 02-25-2022 End: 02-25-2022 Patient encounter procedure Chad Mariee APRN.ADDRESSOGRAPH OPERATOR Work Phone: [facility] Start: 02-23-2022 Documentation procedure Mammog chidi Coordinator [facility] Start: 02-23-2022 Letter encounter Mammography Coordinator [facility] Department Start: 02-23-2022 End: 02-23-2022 Subsequent hospital visit by physician Screen Mammo [facility] Mammogram Comment on above: Breast neoplasm, Tis (DCIS), left [D05.12] Start: 02-10-2022 Refill Cherise MAYS-C Work Phone: [facility] Comment on above: Refill Request Start: 05-26-2021 Ophthalmic examinati on and evaluation Cherise Sifuentes PA-C Work Phone: [facility] Start: 01-21-2021 Patient encounter status Haley RODRIGUEZC Work Phone: [facility] Work Phone: Start: 10-29-2016 Patient encounter status Haley Sifuentes PA-C Work Phone: [facility] Work Phone: Procedures Date Procedure Procedure Detail Performing Clinician Start: 04-24-2025 Urnls dip stick/tablet rgnt auto w/o microscopy Francine Madrid APRN.ADDRESSOGRAPH OPERATOR Work Phone: Start: 04-19-2025 Adult depression screening assessment Cherise Sifuentes PA-C Work Phone: Start: 03-14-2025 Screening digital breast tomosynthesis bi Chad Mariee APRN.ADDRESSOGRAPH OPERATOR Work Phone: Start: 08-15-2024 Ct abdomen [...] Screening digital breast tomosynthesis bi Chad Mariee POWER LINEWORKER.ADDRESSOGRAPH OPERATOR Work Phone: Start: 01-18-2024 Smr prim src gram/giemsa stain bct fungi/cell Sima Dumont APRN.ADDRESSOGRAPH OPERATOR Work Phone: Start: 01-18-2024 Urnls dip stick/tablet rgnt auto w/o microscopy Sima Dumont APRN.ADDRESSOGRAPH OPERATOR Work Phone: Start: 01-03-2024 Magnetic resonance [...] stick/tablet rgnt auto w/o microscopy Sima Dumont POWER LINEWORKER.ADDRESSOGRAPH OPERATOR Work Phone: Start: 02-24-2023 End: 02-24-2023 Mammography Chad Mariee POWER LINEWORKER.ADDRESSOGRAPH OPERATOR Work Phone: Start: 12-01-[address] Clifton Hung Work Phone: Start: 11-25-2022 Ct abdomen & pelvis w/contrast material Chad Mariee POWER LINEWORKER.ADDRESSOGRAPH OPERATOR Work Phone: Start: 11-14-2022 STREP A MOLECULAR (POC) Shaneka Yang POWER LINEWORKER.ADDRESSOGRAPH OPERATOR Work Phone: Start: 11-02-2022 COVID WITH FLUA+B, ROUTINE Shaneka Eder garham POWER LINEWORKER.ADDRESSOGRAPH OPERATOR Work Phone: Start: 10-28-2022 GUILLERMINA DIAG W ANGELA LEFT Chad Mariee POWER LINEWORKER.ADDRESSOGRAPH OPERATOR Work Phone: Start: 09-09-2022 Us abdominal real time w/image limited Clifton Hung MD Work Phone: Start: 09-03-2022 INFLUENZA SEASONAL QUADRIVALENT HIGH DOSE AGE 65+ Clifton Hung MD Work Phone: Start: 07-09-2022 BACTERIAL VAGINOSIS AMPLIFICATION Sima fagan POWER LINEWORKER.ADDRESSOGRAPH OPERATOR Work Phone: Start: 07-09-2022 Iadna trichomonas vaginalis amplified probe tech Sima Dumont APRN.ADDRESSOGRAPH OPERATOR Work Phone: Start: 07-09-2022 Urnls dip stick/tablet rgnt auto w/o microscopy Sima Dumont APRN.ADDRESSOGRAPH OPERATOR Work Phone: Start: 07-07-2022 Radionuclide imaging [...] 06-19-2034 Screening for malignant neoplasm of colon [facility] Start: 04-22-2034 Urine microalbumin profile DTaP,Tdap,Td Vaccine (3 - Td or Tdap) [facility] Start: 08-09-2028 Colonoscopy COLONOSCOPY [facility] Start: 08-09-2028 COLORECTAL CANCER SCREENING COLORECTAL CANCER SCREENING [facility] Start: 08-09-2028 Screening for malignant neoplasm of colon [facility] Start: 04-24-2026 Annual PCP Team Chronic Disease Visit Annual PCP Team Chronic Disease Visit [facility] Start: 04-19-2026 Annual PCP Team Chronic Disease Visit Annual PCP Team Chronic Disease Visit [facility] Start: 04-19-2026 Anxiety Screening Anxiety Screening [facility] Start: 04-19-2026 Depression Screening Depression Screening [facility] Start: 04-19-2026 Diabetic foot examination Diabetic Foot Exam [facility] Start: 04-06-2026 Hepatitis B screening Urine Albumin:Creatinine Ratio [facility] Start: 04-06-2026 Hepatitis B surface antibody level LDL Cholesterol [facility] Start: 03-21-2026 End: 04-20-2026 DBT Breast - bilateral screening GUILLERMINA SCREENING W ANGELA Radiology Routine Ductal carcinoma in situ (DCIS) of left breast Encounter for screening mammogram for high-risk patient Expected: 03/21/2026 (Approximate), Expires: 04/20/2026 [facility] Work Phone: Comment on above: Expected: 03/21/2026 (Approximate), Expi res: 04/20/2026 Start: 03-21-2026 End: 03-21-2026 Patient encounter procedure 03/21/2026 8:10 AM EDT Appointment Mammogram [address] [place] [address] : 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]; Encounter for screening mammogram for high-risk patient [Z12.31] Mammogram Comment on above: : Ductal carcinoma in situ (DCIS) of lef t breast [D05.12]; Encounter for screening mammogram for high-risk patient [Z12.31] Start: 03-14-2026 Screening for malignant neoplasm of breast Mammogram Screening [facility] Start: 03-12-2026 End: 03-12-2026 Patient encounter procedure 03/12/2026 8:40 AM EDT Office Visit Endocrinology [address] [place] [id number] Alexa Matute MD [address] [place] [address] 1 yr f/u-review adrenal CT 02/20/26 Endocrinology Comment on above: 1 yr f/u-review adrenal CT 02/20/26 Start: 02-20-2026 End: 05-22-2026 Corticotropin [Mass/volume] in Plasma ACTH BLD Lab Routine Disorder of adrenal gland (HCC) Expected: 02/20/2026, Expires: 05/22/2026 [facility] Comment on above: Expected: 02/20/2026, Expires: Start: 02-20-2026 End: 04-15-2026 CT Adrenal gland WO and W contrast IV CT ADRENAL WO/W IVCON Radiology Routine Disorder of adrenal gland (HCC) Expected: 02/20/2026, Expires: 04/15/2026 [facility] Work Phone: Comment on above: Expected: 02/20/2026, Expires: Start: 02-20-2026 End: 05-22-2026 DHEA-S BLD DHEA-S BLD Lab Routine Disorder of adrenal gland (HCC) Expected: 02/20/2026, Expires: 05/22/2026 [facility] Comment on above: Expected: 02/20/2026, Expires: Start: 02-20-2026 End: 02-20-2026 Patient encounter procedure 02/20/2026 8:40 AM EDT Appointment Cat Scan [address] [place] [address] 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] Cat Scan Comment on above: 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] Start: 02-13-2026 End: 05-15-2026 Creatinine and Glomerular filtration rate.predicted panel - Serum, Plasma or Blood CREATININE BLD Lab Routine Disorder of adrenal gland (HCC) Expected: 02/13/2026, Expires: 05/15/2026 [facility] Comment on above: Expected: 02/13/2026, Expires: Start: 12-29-2025 Annual PCP Team Chronic Disease Visit Annual PCP Team Chronic Disease Visit [facility] Start: 10-23-2025 End: 10-23-2025 Patient encounter procedure 10/23/2025 9:20 AM EST Office Visit Family [facility] [address] [facility] [address] Clifton Hung MD [address] [place] [address] 6 month f/u Family [facility] Comment on above: 6 month f/u Start: 10-19-2025 End: 01-18-2026 25-hydroxyvitamin D3 [Mass/volume] in Serum or Plasma VITAMIN D 25 HYDROXY Lab Routine Vitamin D deficiency Expected: 10/19/2025, Expires: 01/18/2026 [facility] Work Phone: Comment on above: Expected: 10/19/2025, Expires: Start: 10-19-2025 End: 01-18-2026 Basic metabolic 2000 panel - Serum or Plasma BASIC METABOLIC PANEL Lab Routine Controlled type 2 diabetes mellitus without complication, without long-term current use of insulin (HCC) Essential hypertension Expected: 10/19/2025, Expires: 01/18/2026 [facility] Comment on above: Expected: 10/19/2025, Expires: Start: 10-19-2025 End: 01-18-2026 Hemoglobin A1c in Blood HEMOGLOBIN A1C Lab Routine Controlled type 2 diabetes mellitus without complication, without long-term current use of insulin (HCC) Type 2 diabetes mellitus with hyperlipidemia (HCC) Expected: 10/19/2025, Expires: 01/18/2026 [facility] Comment on above: Expected: 10/19/2025, Expires: Start: 10-19-2025 End: 01-18-2026 LIPID PANEL, NONFASTING LIPID PANEL, NONFASTING Lab Routine Mixed hyperlipidemia Expected: 10/19/2025, Expires: 01/18/2026 [facility] Comment on above: Expected: 10/19/2025, Expires: Start: 10-19-2025 End: 01-18-2026 Magnesium [Mass/volume] in Serum or Plasma MAGNESIUM Lab Routine Hypomagnesemia Expected: 10/19/2025, Expires: 01/18/2026 [facility] Comment on above: Expected: 10/19/2025, Expires: Start: 10-18-2025 Annual PCP Team Chronic Disease Visit Annual PCP Team Chronic Disease Visit [facility] Start: 10-18-2025 BP Controlled (<130/80) BP Controlled (<130/80) [facility] in Start: 10-18-2025 Covid-19 Vaccine () Covid-19 Vaccine () [facility] Comment on above: Postponed from 07/09/2024 (Declined at t his time) Start: 10-14-2025 Hepatitis B surface antibody level LDL Cholesterol [facility] Start: 10-07-2025 Hemoglobin A1c measurement HbA1C [facility] Start: 09-29-2025 Glaucoma screening Dilated Retinal Exam [facility] Start: 09-22-2025 BP Controlled (<130/80) BP Controlled (<130/80) [facility] Start: 09-21-2025 End: 09-21-2025 ambulatory 09/21/2025 8:30 AM EST Visit (SP) Office Hematology/Oncology [address] [place] [id number] Chad Mariee APRN.ADDRESSOGRAPH OPERATOR [address] [place] [address] 6MO OV* Hematology/Oncology Comment on above: 6MO OV* Start: 08-21-2025 End: 08-21-2025 Patient encounter procedure 08/21/2025 8:40 AM EDT Office Visit [facility] [address] [place], [place] [id number] Ori Lord DO [address] [place] [address] 6 month NEED NEW UA, NELL [facility] Comment on above: 6 month NEED NEW UA, NELL Start: 07-20-2025 End: 07-20-2025 Patient encounter procedure 07/20/2025 1:05 PM EDT Appointment Radiology [address] [place] [address] Dx: Long-term current use of tamoxifen [Z79.810]; Encounter for screening for osteoporosis [Z13.820]; Asymptomatic postmenopausal status [Z78.0] Radiology Comment on above: Dx: Long-term current use of tamoxifen [ Z79.810]; Encounter for screening for osteoporosis [Z13.820]; Asymptomatic postmenopausal status [Z78.0] Start: 07-11-2025 BP Controlled (<130/80) BP Controlled (<130/80) [facility] Start: 07-09-2025 Influenza vaccination [facility] Start: 07-04-2025 BP Controlled (<130/80) BP Controlled (<130/80) [facility] Start: 05-07-2025 [facility]enza [facility]: [facility] from 07/09/2024 (Declined at t his time) Start: 05-01-2025 BP Controlled (<130/80) BP Controlled (<130/80) [facility] Start: 04-24-2025 End: 04-24-2025 Patient encounter procedure 04/24/2025 8:00 AM EDT Office Visit Family [facility] [address] [facility] [address] Francine Madrid APRN.ADDRESSOGRAPH OPERATOR [address] [facility], [place] [id number] UTI symptoms; Pain urination, pelvic/back pain, urinary frequency [facility] Comment on above: UTI symptoms; Pain urination, pelvic/eugene k pain, urinary frequency Start: 04-19-2025 End: 04-19-2025 Patient encounter procedure 04/19/2025 9:00 AM EDT Office Visit [facility] [address] [place] [address] Cherise Sifuentes PA-C [address] [place], [place] [id number] Medicare wellness [facility] Comment on above: Medicare wellness Start: 04-17-2025 Annual PCP Team Chronic Disease Visit Annual PCP Team Chronic Disease Visit [facility] Start: 04-17-2025 Anxiety Screening Anxiety Screening [facility] Start: 04-17-2025 Covid-19 Vaccine () Covid-19 Vaccine () [facility] Comment on above: Postponed from 07/09/2023 (Declined at t his time) Start: 04-17-2025 Depression Screening Depression Screening [facility] Start: 04-17-2025 Diabetic foot examination Diabetic Foot Exam [facility] Start: 04-17-2025 Hepatitis B screening Urine Albumin:Creatinine Ratio [facility] Start: 04-17-2025 Hepatitis B surface antibody level LDL Cholesterol [facility] Start: 04-14-2025 Hemoglobin A1c measurement HbA1C [facility] Start: 04-09-2025 End: 04-09-2025 Patient encounter procedure 04/09/2025 9:30 AM EDT Office Visit OB/Gynecology [address] [facility] [place] [address] Sima Dumont APRN.ADDRESSOGRAPH OPERATOR [address] [place] [address] Annual OB/Gynecology Comment on above: Annual Start: 04-06-2025 End: 07-06-2025 25-hydroxyvitamin D3 [Mass/volume] in Serum or Plasma VITAMIN D 25 HYDROXY Lab Routine Vitamin D deficiency Expected: 04/06/2025, Expires: 07/06/2025 [facility] Comment on above: Expected: 04/06/2025, Expires: Start: 04-06-2025 End: 07-06-2025 CBC W Auto Differential panel - Blood COMPLETE BLOOD COUNT AND DIFFERENTIAL Lab Routine Type 2 diabetes mellitus with hyperlipidemia (HCC) (HCC) Controlled type 2 diabetes mellitus without complication, without long-term current use of insulin (HCC) Expected: 04/06/2025, Expires: 07/06/2025 [facility] Comment on above: Expected: 04/06/2025, Expires: Start: 04-06-2025 End: 07-06-2025 Cobalamin (Vitamin B12) [Mass/volume] in Serum or Plasma VITAMIN B12 Lab Routine Medication management Gastroesophageal reflux disease without esophagitis Expected: 04/06/2025, Expires: 07/06/2025 [facility] Work Phone: Comment on above: Expected: 04/06/2025, Expires: Start: 04-06-2025 End: 07-06-2025 Comprehensive metabolic 2000 panel - Serum or Plasma COMPREHENSIVE METABOLIC PANEL Lab Routine Type 2 diabetes mellitus with hyperlipidemia (HCC) (HCC) Controlled type 2 diabetes mellitus without complication, without long-term current use of insulin (HCC) Essential hypertension Mixed hyperlipidemia Expected: 04/06/2025, Expires: 07/06/2025 [facility] Comment on above: Expected: 04/06/2025, Expires: Start: 04-06-2025 End: 07-06-2025 Hemoglobin A1c in Blood HEMOGLOBIN A1C Lab Routine Type 2 diabetes mellitus with hyperlipidemia (HCC) (HCC) Controlled type 2 diabetes mellitus without complication, without long-term current use of insulin (HCC) Expected: 04/06/2025, Expires: 07/06/2025 [facility] Comment on above: Expected: 04/06/2025, Expires: Start: 04-06-2025 End: 07-06-2025 LIPID PANEL, NONFASTING LIPID PANEL, NONFASTING Lab Routine Type 2 diabetes mellitus with hyperlipidemia (HCC) (HCC) Controlled type 2 diabetes mellitus without complication, without long-term current use of insulin (HCC) Essential hypertension Mixed hyperlipidemia Expected: 04/06/2025, Expires: 07/06/2025 [facility] Comment on above: Expected: 04/06/2025, Expires: Start: 04-06-2025 End: 07-06-2025 Magnesium [Mass/volume] in Serum or Plasma MAGNESIUM Lab Routine Medication management Gastroesophageal reflux disease without esophagitis Expected: 04/06/2025, Expires: 07/06/2025 [facility] Comment on above: Expected: 04/06/2025, Expires: Start: 04-06-2025 End: 07-06-2025 Microalbumin/Creatinine [Mass Ratio] in Urine ALBUMIN/CREATININE RATIO, URINE Lab Routine Controlled type 2 diabetes mellitus without complication, without long-term current use of insulin (HCC) Expected: 04/06/2025, Expires: 07/06/2025 [facility] Comment on above: Expected: 04/06/2025, Expires: Start: 04-06-2025 End: 07-06-2025 Urinalysis complete panel - Urine URINALYSIS, WITH MICROSCOPIC Lab Routine Type 2 diabetes mellitus with hyperlipidemia (HCC) (HCC) Controlled type 2 diabetes mellitus without complication, without long-term current use of insulin (HCC) Essential hypertension Mixed hyperlipidemia Expected: 04/06/2025, Expires: 07/06/2025 [facility] Comment on above: Expected: 04/06/2025, Expires: Start: 04-06-2025 End: 04-06-2025 ambulatory [facility] Start: 03-27-2025 Glaucoma screening Dilated Retinal Exam [facility] Start: 03-22-2025 Annual PCP Team Chronic Disease Visit Annual PCP Team Chronic Disease Visit [facility] Start: 05-15-2025 BP Controlled (<130/80) BP Controlled (<130/80) [facility] Start: 03-21-2025 End: 03-21-2025 ambulatory 03/21/2025 8:00 AM EDT Visit (SP) Office Hematology/Oncology [address] [place] [address] Chad Mariee APRN.ADDRESSOGRAPH OPERATOR [address] [place] [address] 6 MTH OV/MAMM 03/14* R/S FROM 03/20 Hematology/Oncology Comment on above: 6 MTH OV/MAMM 03/14* R/S FROM 03/20 Start: 03-20-2025 End: 03-20-2025 ambulatory 03/20/2025 8:00 AM EDT Visit (SP) Office Hematology/Oncology [address] [place] [address] Chad Mariee APRN.ADDRESSOGRAPH OPERATOR [address] [place] [address] 6 MTH OV* Hematology/Oncology Comment on above: 6 MTH OV* Start: 03-16-2025 End: 06-15-2025 Thyrotropin [Units/volume] in Serum or Plasma THYROID STIMULATING HORMONE Lab Routine Cold intolerance Expected: 03/16/2025, Expires: 06/15/2025 [facility] Comment on above: Expected: 03/16/2025, Expires: Start: 03-16-2025 End: 03-16-2025 Patient encounter procedure 03/16/2025 8:40 AM EDT Office Visit Endocrinology [address] [place] [address] Alexa Matute MD [address] [place] [address] 4 wk f/u-adrenal Endocrinology Comment on above: 4 wk f/u-adrenal Start: 03-14-2025 End: 10-14-2025 DBT Breast - bilateral screening GUILLERMINA SCREENING W ANGELA Radiology Routine Ductal carcinoma in situ (DCIS) of left breast Encounter for screening mammogram for high-risk patient Expected: 03/14/2025 (Approximate), Expires: 10/14/2025 [facility] Work Phone: Comment on above: Expected: 03/14/2025 (Approximate), Expi res: 10/14/2025 Start: 03-14-2025 End: 03-14-2025 Patient encounter procedure 03/14/2025 7:30 AM EDT Appointment Mammogram [address] [place] [address] MAMMO W ANGELA Mammogram Comment on above: MAMMO W ANGELA Start: 03-09-2025 Screening for malignant neoplasm of breast Mammogram Screening [facility] Start: 02-21-2025 End: 02-21-2025 ambulatory 02/21/2025 9:30 AM EDT Results Only [facility] [address] [place] [address] [facility] Start: 02-19-2025 End: 02-19-2025 Patient encounter procedure 02/19/2025 8:40 AM EDT Office Visit [facility] [address] [place] [id number] Ori Lord DO [address] [place] [id number] 6 mo f/u [facility] Comment on above: 6 mo f/u Start: 02-16-2025 End: 05-18-2025 Corticotropin [Mass/volume] in Plasma ACTH BLD Lab Routine Adenoma of right adrenal gland Expected: 02/16/2025, Expires: 05/18/2025 [facility] Comment on above: Expected: 02/16/2025, Expires: Start: 02-16-2025 End: 05-18-2025 Cortisol [Mass/volume] in Serum or Plasma --post dose dexamethasone CORTISOL SUPRES POST Lab Routine Adenoma of right adrenal gland Expected: 02/16/2025, Expires: 05/18/2025 [facility] Comment on above: Expected: 02/16/2025, Expires: Start: 02-16-2025 End: 05-18-2025 DEXAMETHASONE DEXAMETHASONE Lab Routine Adenoma of right adrenal gland Expected: 02/16/2025, Expires: 05/18/2025 [facility] Work Phone: Comment on above: Expected: 02/16/2025, Expires: Start: 02-14-2025 End: 02-14-2025 Patient encounter procedure 02/14/2025 9:20 AM EDT Office Visit [facility] [address] [place] [address] Ori Lord DO [address] [place] [address] 6 mo f/u [employer] Comment on above: 6 mo f/u Start: 02-09-2025 End: 02-09-2025 Patient encounter procedure 02/09/2025 9:20 AM EDT Office Visit Endocrinology [address] [place] [address] Alexa Matute MD [address] [place] [address] 2 month follow up Endocrinology Comment on above: 2 month follow up Start: 02-02-2025 End: 02-02-2025 Patient encounter procedure 02/02/2025 10:00 AM EDT Office Visit [facility] [address] [place] [address] Ori Lord DO [address] [place], [place] [address] 6 mo f/u [facility] Comment on above: 6 mo f/u Start: 01-13-2025 Annual PCP Team Chronic Disease Visit Annual PCP Team Chronic Disease Visit [facility] Start: 01-06-2025 Glaucoma screening Dilated Retinal Exam [facility] Start: 12-31-2024 Annual PCP Team Chronic Disease Visit Annual PCP Team Chronic Disease Visit [facility] Start: 11-23-2024 Annual PCP Team Chronic Disease Visit Annual PCP Team Chronic Disease Visit [facility] Start: 11-08-2024 Advance Directive Discussion Advance Directive Discussion [facility] Start: 11-03-2024 End: 02-02-2025 Corticotropin [Mass/volume] in Plasma ACTH BLD Lab Routine Adenoma of right adrenal gland Expected: 11/03/2024, Expires: 02/02/2025 [facility] Comment on above: Expected: 11/03/2024, Expires: Start: 11-03-2024 End: 11-03-2024 Patient encounter procedure 11/03/2024 8:40 AM EST Office Visit Endocrinology [address] [place] [address] Alexa Matute MD [address] [place] [address] 4 wk f/u (soonest) Endocrinology Comment on above: 4 wk f/u (soonest) Start: 10-18-2024 End: 10-18-2024 Patient encounter procedure 10/18/2024 9:20 AM EST Office Visit Family [facility] [address] [place] [address] Clifton Hung MD [address] [place] [address] 6 month follow up [facility] Comment on above: 6 month follow up Start: 10-17-2024 Hemoglobin A1c measurement HbA1C [facility] Start: 10-13-2024 End: 01-12-2025 25-hydroxyvitamin D3 [Mass/volume] in Serum or Plasma VITAMIN D 25 HYDROXY Lab Routine Vitamin D deficiency Expected: 10/13/2024, Expires: 01/12/2025 [facility] Work Phone: Comment on above: Expected: 10/13/2024, Expires: Start: 10-13-2024 End: 01-12-2025 Basic metabolic 2000 panel - Serum or Plasma BASIC METABOLIC PANEL Lab Routine Controlled type 2 diabetes mellitus without complication, without long-term current use of insulin ([facility]) Vitamin D deficiency Mixed hyperlipidemia Expected: 10/13/2024, Expires: 01/12/2025 [facility] Comment on above: Expected: 10/13/2024, Expires: Start: 10-13-2024 End: 01-12-2025 Hemoglobin A1c in Blood HEMOGLOBIN A1C Lab Routine Controlled type 2 diabetes mellitus without complication, without long-term current use of insulin ([facility]) Expected: 10/13/2024, Expires: 01/12/2025 [facility] Comment on above: Expected: 10/13/2024, Expires: Start: 10-13-2024 End: 01-12-2025 LIPID PANEL, NONFASTING LIPID PANEL, NONFASTING Lab Routine Mixed hyperlipidemia Expected: 10/13/2024, Expires: 01/12/2025 [facility] Comment on above: Expected: 10/13/2024, Expires: Start: 10-08-2024 Annual PCP Team Chronic Disease Visit Annual PCP Team Chronic Disease Visit [facility] Start: 10-03-2024 End: 10-03-2024 ambulatory 10/03/2024 8:15 AM EST Results Only [facility] [address] [place] [address] Lab Part 2 [facility] Comment on above: Lab Part 2 Start: 09-29-2024 Hepatitis B surface antibody level LDL Cholesterol [facility] Start: 09-22-2024 End: 12-22-2024 ALDOSTERONE/DIRECT RENIN RATIO ALDOSTERONE/DIRECT RENIN RATIO Lab Routine Adenoma of right adrenal gland Expected: 09/22/2024, Expires: 12/22/2024 [facility] Work Phone: Comment on above: Expected: 09/22/2024, Expires: Start: 09-22-2024 End: 12-22-2024 Corticotropin [Mass/volume] in Plasma ACTH BLD Lab Routine Adenoma of right adrenal gland Expected: 09/22/2024, Expires: 12/22/2024 [facility] Comment on above: Expected: 09/22/2024, Expires: Start: 09-22-2024 End: 12-22-2024 Cortisol [Mass/volume] in Serum or Plasma --post dose dexamethasone CORTISOL SUPRES POST Lab Routine Adenoma of right adrenal gland Expected: 09/22/2024, Expires: 12/22/2024 [facility] Comment on above: Expected: 09/22/2024, Expires: Start: 09-22-2024 End: 12-22-2024 DEXAMETHASONE DEXAMETHASONE Lab Routine Adenoma of right adrenal gland Expected: 09/22/2024, Expires: 12/22/2024 [facility] Comment on above: Expected: 09/22/2024, Expires: Start: 09-22-2024 End: 12-22-2024 DHEA-S BLD DHEA-S BLD Lab Routine Adenoma of right adrenal gland Expected: 09/22/2024, Expires: 12/22/2024 [facility] Comment on above: Expected: 09/22/2024, Expires: Start: 09-22-2024 End: 12-22-2024 Potassium [Moles/volume] in Serum or Plasma POTASSIUM Lab Routine Adenoma of right adrenal gland Expected: 09/22/2024, Expires: 12/22/2024 [facility] Comment on above: Expected: 09/22/2024, Expires: Start: 09-22-2024 End: 09-22-2024 Patient encounter procedure 09/22/2024 9:20 AM EST Office Visit Endocrinology [address] [place] [address] Alexa Matute MD [address] [place] [address] follow up Endocrinology Comment on above: follow up Start: 09-14-2024 End: 09-14-2024 ambulatory 09/14/2024 9:00 AM EST Visit (SP) Office Hematology/Oncology [address] [place] [id number] Chad Mariee APRN.ADDRESSOGRAPH OPERATOR [address] [place] [address] 6MO OV* Hematology/Oncology Comment on above: 6MO OV* Start: 08-15-2024 End: 08-15-2024 Patient encounter procedure 08/15/2024 9:00 AM EDT Appointment Cat Scan [address] [place] [address] 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.01]; 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] [facility] Comment on above: 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.01]; 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] Start: 08-08-2024 End: 08-08-2024 ambulatory 08/08/2024 8:15 AM EDT Results Only [facility] [address] [place] [address] [facility] Comment on above: Lab for CT Start: 08-04-2024 End: 08-04-2024 Patient encounter procedure 08/04/2024 10:00 AM EDT Office Visit [facility] [address] [place] [address] Ori Lord [address] [address] cysto 1 mo [facility] Comment on above: cysto 1 mo Start: 07-23-2024 BP Controlled (<130/80) BP Controlled (<130/80) [facility] Start: 07-11-2024 End: 10-10-2024 CREATININE BLD CREATININE BLD Lab Routine Adenoma of right adrenal gland Expected: 07/11/2024, Expires: 10/10/2024 [facility] Comment on above: Expected: 07/11/2024, Expires: Start: 07-11-2024 End: 07-11-2024 Patient encounter procedure 07/11/2024 1:00 PM EDT Office Visit Endocrinology [address] [place] [address] Alexa Matute MD [address] [facility] [address] 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.01] Endocrinology Comment on above: 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.01] Start: 07-09-2024 Covid-19 Vaccine () Covid-19 Vaccine () [facility] Start: 07-09-2024 Covid-19 Vaccine () Covid-19 Vaccine () [facility] Start: 07-09-2024 Influenza vaccination Influenza Vaccine (#1) [facility] Start: 07-04-2024 End: 07-04-2024 Patient encounter procedure [facility] Comment on above: 6 wk FU Start: 05-23-2024 Glaucoma screening Dilated Retinal Exam [facility] Start: 05-23-2024 Hepatitis C antibody, confirmatory test DILATED RETINAL EXAM [facility] Start: 05-23-2024 End: 05-23-2024 Patient encounter procedure 05/23/2024 11:40 AM EDT Office Visit [facility] [address] [place] [address] Ori Landin [address] [place] [id number] f/u for pelvic [facility] Comment on above: f/u for pelvic Start: 04-17-2024 End: 07-17-2024 25-hydroxyvitamin D3 [Mass/volume] in Serum or Plasma [facility] Work Phone: Comment on above: Expected: 04/17/2024, Expires: Start: 04-17-2024 End: 04-17-2024 Patient encounter procedure 04/17/2024 8:40 AM EDT Office Visit [facility] [address] [place], [place] [id number] Francine Madrid APRN.[facility] [address] [place] [address] 3 month follow up [facility] Comment on above: 3 month follow up Start: 04-08-2024 3 comp foot exam completed DIABETIC FOOT EXAM [facility] Start: 04-08-2024 ANNUAL PCP TEAM CHRONIC DISEASE VISIT ANNUAL PCP TEAM CHRONIC DISEASE VISIT [facility] Start: 04-08-2024 BP CONTROLLED (<130/80) BP CONTROLLED (<130/80) [facility] Start: 04-08-2024 Diabetic foot examination Diabetic Foot Exam [facility] Start: 04-02-2024 Hepatitis B screening URINE ALBUMIN:CREATININE RATIO [facility] Start: 04-02-2024 Hepatitis B surface antibody level LDL CHOLESTEROL [facility] Start: 03-29-2024 Hemoglobin A1c measurement HbA1C [facility] Start: 03-29-2024 Hemoglobin A1c/Hemoglobin.total in Blood HbA1C [facility] Start: 03-14-2024 End: 03-14-2024 ambulatory 03/14/2024 10:00 AM EDT Visit (SP) Office Hematology/Oncology [address] [place] [address] Chad Mariee APRN.ADDRESSOGRAPH OPERATOR [address] [place] [address] 7 MO OV/MAMM 5/2* Hematology/Oncology Comment on above: 7 MO OV/MAMM 5/2* Start: 03-09-2024 End: 03-09-2024 Patient encounter procedure 03/09/2024 8:30 AM EDT Appointment Mammogram [address] [place] [address] Mammogram Start: 02-25-2024 Mammography [facility] Start: 02-25-2024 Screening for malignant neoplasm of breast Mammogram Screening [facility] Start: 02-24-2024 Urine microalbumin profile [facility] Start: 02-10-2024 ANNUAL PCP TEAM CHRONIC DISEASE VISIT ANNUAL PCP TEAM CHRONIC DISEASE VISIT [facility] Start: 02-10-2024 BP CONTROLLED (<130/80) BP CONTROLLED (<130/80) [facility] Start: 02-06-2024 BP CONTROLLED (<130/80) BP CONTROLLED (<130/80) [facility] Start: 01-17-2024 End: 04-17-2024 C peptide [Mass/volume] in Serum or Plasma C-PEPTIDE BLD Lab Routine Hyperglycemia Pancreatic insufficiency Expected: 01/17/2024, Expires: 04/17/2024 [facility] Work Phone: Comment on above: Expected: 01/17/2024, Expires: 4 Start: 01-17-2024 End: 04-17-2024 Glutamate decarboxylase 65 Ab [Units/volume] in Serum GLUTAMIC AC DECARBOXYLASE AB Lab Routine Hyperglycemia Pancreatic insufficiency Expected: 01/17/2024, Expires: 04/17/2024 [facility] Work Phone: Comment on above: Expected: 01/17/2024, Expires: Start: 12-28-2023 [facility] Start: 12-28-2023 Respiratory secretion precautions [facility] Start: 12-22-2023 [facility] Start: 12-09-2023 BP CONTROLLED (<130/80) BP CONTROLLED (<130/80) [facility] Start: 11-08-2023 Advance Directive Discussion Advance Directive Discussion [facility] Start: 11-08-2023 Behavioral Health Screening Behavioral Health Screening [facility] Start: 11-08-2023 Depression Assessment Depression Assessment [facility] Start: 10-05-2023 ANNUAL PCP TEAM CHRONIC DISEASE VISIT ANNUAL PCP TEAM CHRONIC DISEASE VISIT [facility] Start: 10-03-2023 Hemoglobin A1c/Hemoglobin.total in Blood HBA1C [facility] Start: 09-24-2023 End: 11-24-2023 Hemoglobin A1c in Blood HGB A1C Lab Routine Controlled type 2 diabetes mellitus without complication, without long-term current use of insulin (HCC) Expected: 09/24/2023, Expires: 11/24/2023 [facility] Work Phone: Comment on above: Expected: 09/24/2023, Expires: 4 Start: 09-24-2023 End: 11-24-2023 LIPID PANEL, NONFASTING LIPID PANEL, NONFASTING Lab Routine Controlled type 2 diabetes mellitus without complication, without long-term current use of insulin (HCC) Essential hypertension Mixed hyperlipidemia 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) Expected: 09/24/2023, Expires: 11/24/2023 [facility] Work Phone: Comment on above: Expected: 09/24/2023, Expires: 4 Start: 09-15-2023 Hepatitis B surface antibody level LDL CHOLESTEROL [facility] Start: 09-11-2023 [facility] Start: 09-03-2023 ANNUAL PCP TEAM CHRONIC DISEASE VISIT ANNUAL PCP TEAM CHRONIC DISEASE VISIT [facility] Start: 09-03-2023 BP CONTROLLED (<130/80) BP CONTROLLED (<130/80) [facility] Start: 08-28-2023 BP CONTROLLED (<130/80) BP CONTROLLED (<130/80) [facility] Start: 07-09-2023 BP CONTROLLED (<130/80) BP CONTROLLED (<130/80) [facility] Start: 07-09-2023 Covid-19 Vaccine ( season) Covid-19 Vaccine () [facility] Start: 06-30-2023 BP CONTROLLED (<130/80) BP CONTROLLED (<130/80) [facility] Start: 05-30-2023 Hepatitis C antibody, confirmatory test DILATED RETINAL EXAM [facility] Start: 04-04-2023 End: 06-04-2023 25-hydroxyvitamin D3 [Mass/volume] in Serum or Plasma VITAMIN D 25 HYDROXY Lab Routine Vitamin D deficiency Expected: 04/04/2023, Expires: 06/04/2023 [facility] Work Phone: Comment on above: Expected: 04/04/2023, Expires: 3 Start: 04-04-2023 End: 06-04-2023 ALBUMIN/CREAT RATIO RND UR ALBUMIN/CREAT RATIO RND UR Lab Routine Controlled type 2 diabetes mellitus without complication, without long-term current use of insulin (HCC) Expected: 04/04/2023, Expires: 06/04/2023 [facility] Work Phone: Comment on above: Expected: 04/04/2023, Expires: 3 Start: 04-04-2023 End: 06-04-2023 CBC W Auto Differential panel - Blood CBC + DIFF Lab Routine Controlled type 2 diabetes mellitus without complication, without long-term current use of insulin (HCC) Expected: 04/04/2023, Expires: 06/04/2023 [facility] Work Phone: Comment on above: Expected: 04/04/2023, Expires: 3 Start: 04-04-2023 End: 06-04-2023 Comprehensive metabolic 2000 panel - Serum or Plasma COMP METABOLIC PANEL Lab Routine Essential hypertension Controlled type 2 diabetes mellitus without complication, without long-term current use of insulin (HCC) Expected: 04/04/2023, Expires: 06/04/2023 [facility] Work Phone: Comment on above: Expected: 04/04/2023, Expires: Start: 04-04-2023 End: 06-04-2023 Hemoglobin A1c in Blood HGB A1C Lab Routine Controlled type 2 diabetes mellitus without complication, without long-term current use of insulin (HCC) Expected: 04/04/2023, Expires: 06/04/2023 [facility] Work Phone: Comment on above: Expected: 04/04/2023, Expires: 3 Start: 04-04-2023 End: 06-04-2023 LIPID PANEL, NONFASTING LIPID PANEL, NONFASTING Lab Routine Mixed hyperlipidemia Expected: 04/04/2023, Expires: 06/04/2023 [facility] Work Phone: Comment on above: Expected: 04/04/2023, Expires: 3 Start: 04-04-2023 End: 06-04-2023 Urinalysis complete panel - Urine URINALYSIS, WITH MICROSCOPIC Lab Routine Essential hypertension Controlled type 2 diabetes mellitus without complication, without long-term current use of insulin (HCC) Expected: 04/04/2023, Expires: 06/04/2023 [facility] Work Phone: Comment on above: Expected: 04/04/2023, Expires: 3 Start: 04-03-2023 3 comp foot exam completed DIABETIC FOOT EXAM [facility] Start: 04-03-2023 ANNUAL PCP TEAM CHRONIC DISEASE VISIT ANNUAL PCP TEAM CHRONIC DISEASE VISIT [facility] Start: 04-03-2023 BP CONTROLLED (<130/80) BP CONTROLLED (<130/80) [facility] Start: 03-30-2023 Hepatitis B screening URINE ALBUMIN:CREATININE RATIO [facility] Start: 03-30-2023 Hepatitis B surface antibody level LDL CHOLESTEROL [facility] Start: 03-15-2023 Hemoglobin A1c/Hemoglobin.total in Blood HBA1C [facility] Start: 02-25-2023 BP CONTROLLED (<130/80) BP CONTROLLED (<130/80) [facility] Start: 02-23-2023 Mammography MAMMOGRAM [facility] Start: 01-16-2023 COVID-19 VACCINE (6 - Moderna series) COVID-19 VACCINE (6 - Moderna series) [facility] Start: 12-01-2022 Colonoscopy w/biopsy single/multiple COLONOSCOPY AND BIOPSY [facility] Start: 12-01-2022 Egd transoral biopsy single/multiple EGD BIOPSY SINGLE/MULTIPLE [facility] Start: 12-01-2022 Patient discharge [facility] Start: 11-08-2022 ADVANCE DIRECTIVE DISCUSSION ADVANCE DIRECTIVE DISCUSSION [facility] Start: 11-08-2022 DEPRESSION ASSESSMENT DEPRESSION ASSESSMENT [facility] Start: 09-30-2022 Hemoglobin A1c/Hemoglobin.total in Blood HBA1C [facility] Start: 09-26-2022 ANNUAL PCP TEAM CHRONIC DISEASE VISIT ANNUAL PCP TEAM CHRONIC DISEASE VISIT [facility] Start: 09-16-2022 Hepatitis B surface antibody level LDL CHOLESTEROL [facility] Start: 09-03-2022 End: 11-03-2022 Amylase [Enzymatic activity/volume] in Serum or Plasma [facility] Work Phone: Comment on above: Expected: 09/03/2022, Expires: 2 Start: 09-03-2022 End: 11-03-2022 CBC W Auto Differential panel - Blood [facility] Work Phone: Comment on above: Expected: 09/03/2022, Expires: 2 Start: 09-03-2022 End: 11-03-2022 Helicobacter pylori [Quantitative] in Stomach by urea breath test BREATH TEST H PYLORI Lab Routine Epigastric pain Expected: 09/03/2022, Expires: 11/03/2022 [facility] Work Phone: Comment on above: Expected: 09/03/2022, Expires: 2 Start: 09-03-2022 End: 11-03-2022 Hepatic function 2000 panel - Serum or Plasma [facility] Work Phone: Comment on above: Expected: 09/03/2022, Expires: 2 Start: 09-03-2022 End: 11-03-2022 Lipase [Enzymatic activity/volume] in Serum or Plasma [facility] Work Phone: Comment on above: Expected: 09/03/2022, Expires: 2 Start: 2022 ADVANCE DIRECTIVE DISCUSSION ADVANCE DIRECTIVE DISCUSSION [facility] Start: 2022 PNEUMOCOCCAL (3 - PPSV23 or PCV20) PNEUMOCOCCAL (3 - PPSV23 or PCV20) [facility] Start: 2022 PNEUMOCOCCAL: 65+ (3 - PPSV23 if available, else PCV20) PNEUMOCOCCAL: 65+ (3 - PPSV23 if available, else PCV20) [facility] Start: 2022 PNEUMOCOCCAL: 65+ (3 - PPSV23 or PCV20) PNEUMOCOCCAL: 65+ (3 - PPSV23 or PCV20) [facility] Start: 06-30-2022 End: 08-30-2022 Bacteria identified in Wound by Culture [facility] Work Phone: Comment on above: Expected: 06/30/2022, Expires: 2 Start: 06-30-2022 End: 08-30-2022 Herpes simplex virus+Varicella zoster virus DNA [Presence] in Unspecified specimen by MICHAEL with probe detection [facility] Work Phone: Comment on above: Expected: 06/30/2022, Expires: 2 Start: 05-26-2022 3 comp foot exam completed DIABETIC FOOT EXAM [facility] Start: 05-24-2022 Hepatitis C antibody, confirmatory test DILATED RETINAL EXAM [facility] Start: 05-12-2022 Adult depression screening assessment DEPRESSION SCREENING [facility] Start: 03-16-2022 Hemoglobin A1c/Hemoglobin.total in Blood HBA1C [facility] Start: 02-21-2022 Mammography MAMMOGRAM [facility] Start: 01-18-2022 Hepatitis B screening URINE ALBUMIN:CREATININE RATIO [facility] Start: 12-26-2021 COVID-19 VACCINE (5 - Booster for Moderna series) COVID-19 VACCINE (5 - Booster for Moderna series) [facility] Start: 11-08-2021 DEPRESSION ASSESSMENT DEPRESSION ASSESSMENT [facility] Start: 07-08-2018 FECAL OCCULT BLOOD FECAL OCCULT BLOOD [facility] Start: 07-08-2018 Screening for malignant neoplasm of colon Fecal Occult Blood [facility] Start: 10-25-2017 End: 10-25-2017 Appointment Appointment [facility] Work Phone: Start: 07-22-2017 End: 07-22-2017 Appointment Appointment [facility] Work Phone: Start: 07-22-2017 End: 07-22-2017 Follow Up Appt 3 months Follow Up Appt 3 months [employer] Work Phone: Start: 07-22-2017 End: 07-22-2017 MMM MMM [employer] Phone: Start: 07-22-2017 End: 07-22-2017 Follow Up Appt 3 months Follow Up Appt 3 months [employer] Work Phone: Start: 07-22-2017 End: 07-22-2017 MMM MMM [employer] Phone: Start: 2017 Hepatitis B Vaccine (1 of 3 - Risk 3-dose series) Hepatitis B Vaccine (1 of 3 - Risk 3-dose series) [facility] Start: 2017 RSV Vaccine (1 - 1-dose 60+ series) RSV Vaccine (1 - 1-dose 60+ series) [facility] Start: 04-23-2017 End: 04-23-2017 Follow Up Appt 3 months Follow Up Appt 3 months [employer] Work Phone: Start: 04-23-2017 End: 04-23-2017 MMM MMM [facility] Work Phone: Start: 04-23-2017 End: 04-23-2017 Pulmonary Function Test - complete Pulmonary Function Test - complete [facility] Work Phone: Start: 04-23-2017 End: 04-23-2017 Appointment Appointment [facility] Work Phone: Start: 04-23-2017 End: 04-23-2017 Follow Up Appt 3 months Follow Up Appt 3 months [facility] Work Phone: Start: 04-23-2017 End: 04-23-2017 MMM MMM [facility] Work Phone: Start: 04-23-2017 End: 04-23-2017 Pulmonary Function Test - complete Pulmonary Function Test - complete [facility] Work Phone: Start: 03-31-2017 End: 04-01-2017 Echocardiography Echocardiogram (complete) [facility] Work Phone: Start: 03-31-2017 End: 04-01-2017 Nuclear stress test -Lexiscan Nuclear stress test -Lexiscan [facility] Work Phone: Start: 03-31-2017 End: 04-19-2017 Echocardiography Echocardiogram (complete) [facility] Work Phone: Start: 03-31-2017 End: 04-19-2017 Nuclear stress test -Lexiscan Nuclear stress test -Lexiscan [facility] Work Phone: Start: 02-19-2017 End: 01-20-2017 *Hepatic Function Panel *Hepatic Function Panel [facility] Work Phone: Start: 02-19-2017 End: 04-21-2017 Lipid panel [AGGREGATE] *Lipid Profile CC PCP [facility] Work Phone: Start: 02-19-2017 End: 01-20-2017 *Hepatic Function Panel *Hepatic Function Panel [facility] Work Phone: Start: 02-19-2017 End: 04-21-2017 Lipid panel [AGGREGATE] *Lipid Profile CC PCP [facility] Work Phone: Start: 01-20-2017 End: 04-19-2017 Cardiac Rehab [facility] [address] [place], [address] [employer] Phone: Start: 01-20-2017 End: 01-20-2017 Cardiovascular stress test using treadmill Treadmill stress test (no imaging) [employer] Phone: Start: 01-20-2017 End: 01-20-2017 Follow Up Appt 3 months Follow Up Appt 3 months [employer] Phone: Start: 01-20-2017 End: 01-20-2017 PFM PF [employer] Phone: Start: 01-20-2017 End: 04-19-2017 [facility] [address] [place], [address] [employer] Phone: Start: 01-20-2017 End: 01-20-2017 Cardiovascular stress test using treadmill Treadmill stress test (no imaging) [employer] Phone: Start: 01-20-2017 End: 01-20-2017 Follow Up Appt 3 months Follow Up Appt 3 months [employer] Phone: Start: 01-20-2017 End: 01-20-2017 PFM PFPCS [employer] Phone: Start: 2002 COLOGUARD (FIT-DNA) COLOGUARD (FIT-DNA) [facility] Start: [address] COLONOGRAPHY [facility] Start: 2002 Screening for malignant neoplasm of colon [facility] Start: 2002 SIGMOIDOSCOPY SIGMOIDOSCOPY [facility] Start: 1975 BP CONTROLLED (<130/80) BP CONTROLLED (<130/80) [facility] Amylase [Enzymatic activity/volume] in Serum or Plasma [facility] Bacteria identified in Urine by Culture URINE CULTURE Microbiology Routine Dysuria 07/09/2022 9:15 AM [facility] Work Phone: Bacteria identified in Urine by Culture URINE CULTURE Microbiology Routine Dysuria Urine frequency 07/23/2023 11:49 AM [facility] Work Phone: Bacteria identified in Urine by Culture URINE CULTURE Microbiology Routine Dysuria Urinary frequency [facility] Bacteria identified in Urine by Culture URINE CULTURE Microbiology Routine Abnormal urinalysis 04/19/2024 10:59 AM [facility] Work Phone: Bacteria identified in Urine by Culture URINE CULTURE Microbiology Routine Microscopic hematuria 04/25/2024 10:51 AM [facility] Work Phone: Bacteria identified in Urine by Culture URINE CULTURE Microbiology Routine Urinary incontinence, mixed Ordered: 05/23/2024 [facility] Work Phone: Comment on above: Ordered: 05/23/2024 Bacteria identified in Urine by Culture BACTERIAL CULTURE, URINE Microbiology Routine Urinary tract infection with hematuria, site unspecified 04/24/2025 8:01 AM [facility] Work Phone: BACTERIAL VAGINOSIS AMPLIFICATION BACTERIAL VAGINOSIS AMPLIFICATION Lab Routine Vaginal discharge Ordered: 12/09/2022 [facility] Work Phone: Comment on above: Ordered: 12/09/2022 End: 05-09-2026 BD DXA TRABECULAR BONE SCORE (TBS) BD DXA TRABECULAR BONE SCORE (TBS) Radiology Routine Long-term current use of tamoxifen Encounter for screening for osteoporosis Asymptomatic postmenopausal status 1 Occurrences starting 04/09/2025 until 05/09/2026 [facility] Comment on above: 1 Occurrences starting 04/09/2025 until 05/09/2026 C peptide [Mass/volu me] in Serum or Plasma C-PEPTIDE BLD Lab Routine Hyperglycemia Pancreatic insufficiency 01/18/2024 2:48 PM [facility] Work Phone: CHINO / TRICHOMONA S AMPLIFICATION CHINO / TRICHOMONAS AMPLIFICATION Microbiology Routine Vaginal discharge Ordered: 12/09/2022 [facility] Work Phone: Comment on above: Ordered: 12/09/2022 Cardiac event recording [facility] Work Phone: COVID & INFLUENZA A/ B & RSV PCR, ROUTINE COVID & INFLUENZA A/B & RSV PCR, ROUTINE Microbiology Routine Acute cough Ordered: 12/29/2024 [facility] Work Phone: Comment on above: Ordered: 12/29/2024 CREATININE, 24 HOUR URINE CREATI NINE, 24 HOUR URINE Lab Routine Adenoma of right adrenal gland Ordered: 11/03/2024 [facility] Comment on above: Ordered: 11/03/2024 End: 09-27-2023 Ct abdomen & pelvis w/contrast material CT ABD/PEL W IVCON Radiology Routine Breast neoplasm, Tis (DCIS), left Nausea Pain of upper abdomen 1 Occurrences starting 08/28/2022 until 09/27/2023 [facility] Work Phone: Comment on above: 1 Occurrences starting 08/28/2022 until 09/27/2023 End: 10-16-2023 Ct abdomen & pelvis w/contrast material CT ABD/PEL W IVCON Radiology Routine Abnormal CT of the abdomen Liver 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 1 Occurrences starting 09/16/2022 until 10/16/2023 [facility] Work Phone: Comment on above: 1 Occurrences starting 09/16/2022 until 10/16/2023 End: 08-10-2025 CT Adrenal gland WO and W contrast IV CT ADRENAL WO/W IVCON Radiology Routine 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) 1 Occurrences starting 07/11/2024 until 08/10/2025 [facility] Work Phone: Comment on above: 1 Occurrences starting 07/11/2024 until 08/10/2025 End: 09-27-2023 CT CHEST W IVCON CT CHEST W IVCON Radiology Routine Breast neoplasm, Tis (DCIS), left Nausea Pain of upper abdomen 1 Occurrences starting 08/28/2022 until 09/27/2023 [facility] Work Phone: Comment on above: 1 Occurrences starting 08/28/2022 until 09/27/2023 Cystourethroscopy CYSTO.PANENDO Procedures Routine Urinary incontinence, mixed Microscopic hematuria Ordered: 08/04/2024 [facility] Work Phone: Comment on above: Ordered: 08/04/2024 End: 10-16-2023 Diagnostic mammography computer-aided detcj uni GUILLERMINA DIAGNOSTIC LT Radiology Routine Ductal carcinoma in situ (DCIS) of left breast Abnormal CT of the chest 1 Occurrences starting 09/16/2022 until 10/16/2023 [facility] Work Phone: Comment on above: 1 Occurrences starting 09/16/2022 until 10/16/2023 End: 05-09-2026 DXA Skeletal system.axial Views for bone density DXA-AXIAL SKELETON Radiology Routine Long-term current use of tamoxifen Encounter for screening for osteoporosis Asymptomatic postmenopausal status 1 Occurrences starting 04/09/2025 until 05/09/2026 [facility] Work Phone: Comment on above: 1 Occurrences starting 04/09/2025 until 05/09/2026 Glutamate decarboxyl ase 65 Ab [Units/volume] in Serum GLUTAMIC AC DECARBOXYLASE AB Lab Routine Hyperglycemia Pancreatic insufficiency 01/18/2024 2:48 PM EDT [facility] Work Phone: Helicobacter pylori [Quantitative] in Stomach by urea breath test BREATH TEST H PYLORI Lab Routine Epigastric pain 09/08/2022 9:24 AM EDT [facility] Work Phone: Lipase measurement [facility] End: 03-27-2024 GUILLERMINA SCREENING W ANGELA GUILLERMINA SCREENING W ANGELA Radiology Routine Ductal carcinoma in situ (DCIS) of left breast Encounter for screening mammogram for high-risk patient 1 Occurrences starting 02/26/2023 until 03/27/2024 [facility] Work Phone: Comment on above: 1 Occurrences starting 02/26/2023 until 03/27/2024 Microscopic observat ion [Identifier] in Vaginal fluid by Gram stain BACT/CHINO VAG GRAM STAIN Microbiology Routine Vaginal discharge Vulvovaginal discomfort 07/23/2023 11:49 AM EDT [facility] Work Phone: Patient Education [facility] Work Phone: [facility]: End: 09-27-2023 Screening mammography bi 2-view breast inc cad GUILLERMINA SCREENING Radiology Routine Breast neoplasm, Tis (DCIS), left Encounter for screening mammogram for high-risk patient 1 Occurrences starting 08/28/2022 until 09/27/2023 [facility] Work Phone: Comment on above: 1 Occurrences starting 08/28/2022 until 09/27/2023 URINE FREE CORTISOL BY LC-MS/MS URINE FREE CORTISOL BY LC-MS/MS Lab Routine Adenoma of right adrenal gland Ordered: 11/03/2024 [facility] Work Phone: Comment on above: Ordered: 11/03/2024 End: 10-03-2023 Us abdominal real time w/image limited US ABD RT UPPER QUADRANT Radiology Routine Epigastric pain 1 Occurrences starting 09/03/2022 until 10/03/2023 [facility] Work Phone: Comment on above: 1 Occurrences starting 09/03/2022 until 10/03/2023 End: 10-16-2023 Us breast uni real time with image limited US BREAST LTD LT Radiology Routine Ductal carcinoma in situ (DCIS) of left breast Abnormal CT of the chest 1 Occurrences starting 09/16/2022 until 10/16/2023 [facility] Work Phone: Comment on above: 1 Occurrences starting 09/16/2022 until 10/16/2023 [facility] Immunizations Immunization Date Immunization Notes Care Provider Fa thania 04-22-2024 tetanus toxoid, redu andres diphtheria toxoid, and acellular pertussis vaccine, adsorbed Cherise MAYS-C Work Phone: [facility] 12-09-2023 respiratory syncytia l virus (RSV) vaccine, adjuvanted (AREXVY) Cherise MAYS-C Work Phone: [facility] 10-26-2023 influenza (HD-IIV4) vaccine, age 65+ yr, high dose, quadrivalent, PF (FLUZONE HIGH-DOSE) Clifton Hung MD Work Phone: [facility] 10-26-2023 influenza virus vacc ine, unspecified formulation Ori Kenyon Quanugkelby Work Phone: [facility] 10-05-2022 pneumococcal polysaccharide vaccine, 23 valent Cherise MAYS-C Work Phone: [facility] 09-18-2022 COVID-19 booster vaccine, age 12+ yr, bivalent (MODERNA) Cherise MAYS-C Work Phone: [facility] 09-03-2022 influenza, high-dose , quadrivalent vaccine (FLUZONE HIGH DOSE QUADRIVALENT) Clifton Hung MD Work Phone: [facility] 09-01-2021 influenza, injectabl e, quadrivalent, contains preservative Cherise MAYS-C Work Phone: [facility] 12-20-2020 COVID-19 vaccine, fu ll dose (MODERNA) Cherise MAYS-C Work Phone: [facility] 11-19-2020 COVID-19 vaccine, fu ll dose (MODERNA) Cherise MAYS-C Work Phone: [facility] 10-12-2020 zoster vaccine recombinant Cherise MAYS-C Work Phone: [facility] 05-12-2020 zoster vaccine recombinant Cherise Sifuentes PA-C Work Phone: [facility] 04-12-2020 zoster vaccine recombinant Cherise Sifuentes PA-C Work Phone: [facility] 11-19-2019 COVID-19 vaccine, fu ll dose (MODERNA) Cherise Sifuentes PA-C Work Phone: [facility] 09-07-2017 influenza, seasonal, injectable Cherise RODRIGUEZC Work Phone: [facility] 06-28-2017 pneumococcal polysaccharide vaccine, 23 valent Cherise Sifuentes PA-C Work Phone: [facility] 10-05-2016 influenza, injectabl e, quadrivalent, preservative free Dr. Clifton Hung Work Phone: [facility] 10-05-2016 influenza, seasonal, injectable Dr. Clifton Hung Work Phone: [facility] 09-04-2016 influenza, seasonal, injectable Cherise MAYS-C Work Phone: [facility] 01-16-2016 pneumococcal conjuga te vaccine, 13 valent Cherise MAYS-C Work Phone: [facility] Work Phone: 09-19-2014 influenza, seasonal, injectable Cherise MAYS-C Work Phone: [facility] 02-23-2014 tetanus toxoid, redu andres diphtheria toxoid, and acellular pertussis vaccine, adsorbed Cherise MAYS-C Work Phone: [facility] 10-20-2013 influenza virus vacc ine, unspecified formulation Cherise MAYS-C Work Phone: [facility] 08-08-2009 pneumococcal polysaccharide vaccine, 23 valent Cherise MAYS-C Work Phone: [facility] Work Phone: Payers Date Payer Category Payer Self-pay [id number] 2022 Medicare HUMANA MEDICARE HUMANA MEDICARE PPO [id number] 2022-[facility] [id number] [place] [address] PPO [id number] 2022 Medicare (Managed Care) POLO LO [id number] 2022 Medicare [id number] 2013 Unknown [id number] 2009 Unknown ANTHEM BLUE CARD PPO OOS [id number] 2009-Present [phone] [address] [place] [address] PPO [id number] 2009 Unknown AN[employer]M BLUE CARD PPO OOS [id number] 2009-Present [phone] [place] [id number] PPO [id number] 1957 Unknown [id number] Medicare MEDICARE PART A B [id number] Unknown [id number] Unknown [id number] Unknown [id number] Unknown [id number] Unknown [id number] Unknown [id number] [id number] Unknown [id number] [id number] Unknown [id number] [id number] Unknown [id number] Unknown [id number] [id number] Unknown [id number] [id number] Unknown [id number] Unknown [id number] [id number] Unknown [id number] [id number] Social History Date Type Detail Facility Start: 07-21-2013 End: 07-04-2024 Tobacco smoking status NHIS Ex-smoker [facility] Start: 11-08-1991 End: 11-08-1994 History of tobacco use Current smoker [facility] Start: 11-08-1991 End: 11-08-1994 History of tobacco use Cigarette Smoker [facility] Start: 07-21-2013 End: 04-08-2023 Cigarettes smoked current (pack per day) - Reported 1.5 [facility] Start: 07-21-2013 End: 07-04-2024 Tobacco use and exposure Smokeless tobacco non-user [facility] Start: 10-22-2021 End: 04-19-2025 Alcohol intake Current non-drinker of alcohol (finding) [facility] Start: 09-25-2020 End: 09-29-2022 History SDOH Alcohol Frequency 1 [facility] Start: 09-25-2020 History SDOH Alcohol Std Drinks 98 [facility] Start: 05-20-2020 End: 09-25-2020 History SDOH Social Connections Phone 4 [facility] Start: 04-08-2020 End: 09-29-2022 History SDOH Social Connections Get Together 2 [facility] Start: 04-08-2020 End: 09-29-2022 History SDOH Social Connections Yazdanism 3 [facility] Start: 04-08-2020 End: 09-29-2022 History SDOH Physical Activity DPW 0 [facility] Start: 04-07-2020 Education 21 [facility] Start: 07-21-2013 End: 06-30-2022 Tobacco Comment smoked 3 years in mid 90s [facility] Start: 1955 Sex Assigned At Female C [facility] Start: 02-13-2022 End: 10-05-2022 Exposure to SARS-CoV-2 (event) Not sure [facility] Start: 05-28-2022 End: 12-28-2023 Tobacco smoking status NHIS Unknown if ever smoked [facility] Start: 06-30-2017 None [facility] Start: 01-04-2017 Spouse/ Signif icant Other [facility] Start: 03-31-2021 Non-smoker [facility] Start: 09-29-2022 History SDOH Financial 5 [facility] Start: 09-28-2022 End: 04-08-2023 Social connection and isolation panel [facility] Do you belong to any clubs or organizations such as mormon groups, unions, fraternal or athletic groups, or school groups? Yes [facility] Are you now , , , , never or living with a partner? [facility] How often to you hav e a drink containing alcohol? Never [facility] How many standard drinks containing alcohol do you have on a typical day? Patient does not drink [facility] Do you feel stress - tense, restless, nervous, or anxious, or unable to sleep at night because your mind is troubled all the time - these days [OSQ] Not at all [facility] (I/We) worried wheth er (my/our) food would run out before (I/we) got money to buy more. Never true [facility] In the past 12 month s, was there a time when you were not able to pay the mortgage or rent on time? No [facility] Start: 01-16-2019 Gender identity Identifies as female gender (finding) [facility] Start: 01-16-2019 Sexual orientation Heterosexual (vu lo) [facility] How hard is it for y ou to pay for the very basics like food, housing, medical care, and heating Not very hard [facility] Do you feel stress - tense, restless, nervous, or anxious, or unable to sleep at night because your mind is troubled all the time - these days [OSQ] To some extent [facility] NEGATED: Highlighted row [facility] Goals Date Patient Goal Desired Activity /State Functional Status Date Assessment Result Facility 04-18-2025 Total score [AUDIT-C] 0 04/18/20 25 10:17 AM EDT UserJose [facility] 04-18-2025 How often to you hav e a drink containing alcohol? Never 04/18/2025 10:17 AM EDT User, [email or web address] Never [facility] 04-18-2025 Functional status Patient does n ot drink 04/18/2025 10:17 AM EDT UserJose Patient does not drink [facility] 04-18-2025 How often do you hav e 6 or more drinks on 1 occasion? Never 04/18/2025 10:17 AM EDT UserJose Never [facility] 03-08-2015 Are you deaf, or do you have serious difficulty hearing No 03/08/2015 11:23 AM Apurva Lu Cma No [facility] 03-08-2015 Are you blind, or do you have serious difficulty seeing, even when wearing glasses No 03/08/2015 11:23 AM Apurva Lu Cma No [facility] 03-08-2015 Do you have serious difficulty walking or climbing stairs No 03/08/2015 11:23 AM Apurva Lu Cma No [facility] 03-08-2015 Do you have difficul ty dressing or bathing No 03/08/2015 11:23 AM Apurva Lu Cma No [facility] 03-08-2015 Because of a physica l, mental, or emotional condition, do you have difficulty doing errands alone such as visiting a physician's office or shopping No 03/08/2015 11:23 AM EDApurva Gracia Cma No [facility] Mental Status Date Assessment Result Facility 12-28-2023 Cognitive function Level Of Cons ciousness Awake;Alert;Appropriate [facility] Work Phone: 12-22-2023 Cognitive function Level Of Cons ciousness Awake;Alert;Appropriate;Fol lows Commands [facility] Work Phone: 09-11-2023 Cognitive function Level Of Cons ciousness Awake;Alert;Appropriate;Fol lows Commands [facility] Work Phone: 12-01-2022 Cognitive function Voice/Name [facility] Work Phone: 03-08-2015 Because of a physica l, mental, or emotional condition, do you have serious difficulty concentrating, remembering, or making decisions No 03/08/2015 11:23 AM Apurva Lu Cma No [facility] Clinical Notes 12-09-2016 to 05-17-2025 Neil Chacko CPhT - 05/17/2025 7:52 AM REYNALDOTPNicole ritter CPhT - 05/14/2025 11:06 AM EDTTelephone Encounter - Ori Moody MA - 04/26/2025 1:59 PM EDTPatient InstructionsPatient Instructions Note Date & Type Note Facility 05-17-2025 Note HNO ID: [id number] Author: NEIL CHACKO CPhT Service: ? Author Type: President Practicing Urologist Type: Progress Notes Filed: 05/17/2025 07:54 Note Text: Patient is identified through a medication adherence outreach initiative based on pharmacy claims data from: [employer] Medication Adherence Category: Diabetes Second Attempt Medication(s) pioglitazone 15 mg due 04/01/25, filled 01/02/25 for 90 days Medication Status per portal/Epic Reconcile Dispense: Not filled Medication Status per Profile Review: No issues per profile review Patient identified by name and Outreach to patient: Sent/Responded to [employer] What was primary intervention? LVM on 05/14/25, sent [employer] message Neil Chacko CPhT Value Based Care Pharmacy Team [facility] 05-17-2025 History of Present illness Narrative Patient is identified through a medication adherence outreach initiative based on pharmacy claims data from: [employer] Medication Adherence Category: Diabetes Second Attempt Medication(s) pioglitazone 15 mg due 04/01/25, filled 01/02/25 for 90 days Medication Status per portal/Epic Reconcile Dispense: Not filled Medication Status per Profile Review: No issues per profile review Patient identified by name and Outreach to patient: Sent/Responded to [employer] What was primary intervention? LVM on 05/14/25, sent [employer] message Neil Chacko CPhT [facility] Pharmacy Team documented in this encounter [facility] 05-17-2025 Note Patient Outreach ( POJOHN) ---- DOM AVILA ([id number]) 1955 F Date Time Provider Department 05/17/25 CLIFTON HUNG During your visit today, we recorded the following information about you: Neil Chacko CPhT 05/17/2025 7:54 AM Signed Patient is identified through a medication adherence outreach initiative based on pharmacy claims data from: [employer] Medication Adherence Category: Diabetes Second Attempt Medication(s) pioglitazone 15 mg due 04/01/25, filled 01/02/25 for 90 days Medication Status per portal/Epic Reconcile Dispense: Not filled Medication Status per Profile Review: No issues per profile review Patient identified by name and Outreach to patient: Sent/Responded to [employer] What was primary intervention? LVM on 05/14/25, sent [employer] message Neil Chacko CPhT Value Based Care [...] 100 mg by mouth once daily. - jmewtn-thzsxtif-xfyvatb (CREON 36) 36,000-114,000- 180,000 unit delayed release [...] 2 diabetes mellitus without com*10/22/2016 Atherosclerosis of kaibab coronary artery with *01/09/2017 S/P angioplasty with [...] office [Z78.*04/08/2023 Advanc (more content not included)... [facility] 05-14-2025 Note HNO ID: [id number] Author: NICOLE SEXTON CPhT Service: ? Author Type: President Practicing Urologist Type: Progress Notes Filed: 05/14/2025 11:18 Note Text: Patient is identified through a medication adherence outreach initiative based on pharmacy claims data from: [employer] Medication Adherence Category: Diabetes First Review Attribution [...] Sexton CPhT Value Based Care Pharmacy Team [facility] 05-14-2025 History of Present illness Narrative Patient is identified through a medication adherence outreach initiative based on pharmacy claims data from: [employer] Medication Adherence Category: Diabetes First Review Attribution [...] Care Pharmacy Team documented in this encounter [facility] 05-14-2025 Note Patient Outreach ( POHE) ---- AUSTINDOM Vel ([id number]) 1955 F Date Time Provider Department 05/14/25 CLIFTON HUNG During your visit today, we recorded the following information about you: Nicole Sexton CPhT 05/14/2025 11:18 AM Signed Patient is identified through a medication adherence outreach initiative based on pharmacy claims data from: [employer] Medication Adherence Category: Diabetes First Review Attribution [...] 100 mg by mouth once daily. - ujpszv-owhlgjvn-yeljesu (CREON 36) 36,000-114,000- 180,000 unit delayed release [...] 2 diabetes mellitus without com*10/22/2016 Atherosclerosis of kaibab coronary artery with *01/09/2017 S/P angioplasty with [...] file at physician's (more content not included)... [facility] 04-26-2025 Telephone encounter Note Pt notified and verbalized understanding Ori Moody MA [facility] 04-26-2025 Miscellaneous Notes Pt notified and verbalized understanding Ori Moody MA Please let patient know her culture is positive for bacterial growth and she should continue current antibiotics. documented in this encounter [facility] 04-26-2025 Telephone encounter Note Please let patient know her culture is positive for bacterial growth and she should continue current antibiotics. [facility] 04-24-2025 Note HNO ID: [id number] Author: FRANCINE MADRID APRN.CNP Service: ? Author [...] disturbance 06/2017 Arthritis tendonitis, arthritis 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 01/09/2017 [...] [place] Type 2 diabetes mellitus with hyperlipidemia ([facility]) 04/17/2024 Uterine fibroid 1994? Hysterectomy at age 41 Uterine polyp No longer an issue Vitamin D deficiency 2012 Well adult exam 01/16/2016 Last done: 09/08/2018 Previous Surgical History PAST SURGICAL HISTORY Procedure Laterality Date 2D ECHO (EXEP) 06/30/2017 EF=65%, trivial IN, TI and 1+ PI Unchanged from 04/2017 2D ECHO (EXEP) 05/14/2021 EF=60%, 1+ TI, trival IN, AI, PI 2D ECHO (EXEP) 09/16/2021 EF=60%, [...] cancer) Mother Coronary Artery Disease Father 25 IN @ 25. CABG Diabetes Father Diabetes Paternal Grandmother Diabetes Maternal Grandfather other (Lung cancer) Brother other (suicide) Son may of been depression Patient Allergies ALLERGIES Allergen Reactions (more content not included)... [facility] 04-24-2025 History of Present illness Narrative [...] disturbance 06/2017 Arthritis tendonitis, arthritis 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 01/09/2017 [...] [place] Type 2 diabetes mellitus with hyperlipidemia ([facility]) 04/17/2024 Uterine fibroid 1994? Hysterectomy at age 41 Uterine polyp No longer an issue Vitamin D deficiency 2012 Well adult exam 01/16/2016 Last done: 09/08/2018 Previous Surgical History PAST SURGICAL HISTORY Procedure Laterality Date 2D ECHO (EXEP) 06/30/2017 EF=65%, trivial IN, TI and 1+ PI Unchanged from 04/2017 2D ECHO (EXEP) 05/14/2021 EF=60%, 1+ TI, trival IN, AI, PI 2D ECHO (EXEP) 09/16/2021 EF=60%, [...] cancer) Mother Coronary Artery Disease Father 25 [place] @ 25. CABG Diabetes Father Diabetes Paternal Grandmother Diabetes Maternal Grandfather other (Lung cancer) Brother other (suicide) Son may of been depression Patient Allergies ALLERGIES Allergen Reactions Brilinta [Ticagrelo* Shortness of Breath Crestor [Rosuvastat* Myalgia Keflex [Cephalexin] Other: See Comments facial flushing Lipitor [Atorvastat* Other: See Comments myalgia Lovastatin Other: See Comments myalgia [place] [Hydrocodone-* Itching Current Medications Current Outpatient Medications [...] Take 100 mg by mouth once daily. wywagr-adgnrjtz-edbyfco (CREON 36) 36,000-114,000- 180,000 unit delayed release [...] MACROCRYSTAL 100 MG ORAL CAP Francine Madrid APRN.ADDRESSOGRAPH OPERATOR documented in this encounter [facility] 04-19-2025 Instructions Cherise Sifuentes PA-C - [...] review all the medicines you take, even ezbg-zqw-wbeigjl medicines. As you get older, the way [...] certain medical conditions. documented in this encounter [facility] 04-19-2025 Note HNO ID: [id number] Author: CHERISE SIFUENTES PA-C Service: ? Author Type: Physician Library Services Dean Type: Progress Notes Filed: 04/19/2025 11:27 Note [...] disturbance 06/2017 Arthritis tendonitis, arthritis 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 Hysterectomy at age 41 Uterine polyp No longer an issue Vitamin D deficiency 2013 Well adult exam 01/16/2016 Last done: 09/08/2018 Previous (more content not included)... [facility] 04-19-2025 History of Present illness Narrative [...] disturbance 06/2017 Arthritis tendonitis, arthritis 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 01/09/2017 [...] hyperlipidemia 05/31/2009 statin intolerance Narcolepsy without cataplexy ([facility]) 01/16/2016 Especially with long drives. Has been on provigil for 5-10 yrs Obstructive sleep apnea on CPAP Sibilia Other skin changes 09/26/2021 Seeing derm Pancreatic insufficiency ([facility]) 04/08/[address] Alcantar Psoriasis RLS (restless legs syndrome) 02/22/[address] Aysha Laurent with ocular symptoms S/P angioplasty with stent 01/09/2017 stents to mid and proximal left anterior descending Art, and angio of ostium of #2 diagonal Scalp itch Seasonal allergies Dr Pompa Type 2 diabetes mellitus with hyperlipidemia ([facility]) 04/17/2024 Uterine fibroid 1994? Hysterectomy at age 41 Uterine polyp No longer an issue Vitamin D deficiency 2012 Well adult exam 01/16/2016 Last done: 09/08/2018 Previous Surgical History PAST SURGICAL HISTORY Procedure Laterality Date 2D ECHO (EXEP) 06/30/2017 EF=65%, trivial IN, TI and 1+ PI Unchanged from 04/2017 2D ECHO (EXEP) 05/14/2021 EF=60%, 1+ TI, trival IN, AI, PI 2D ECHO (EXEP) 09/16/2021 EF=60%, [...] cancer) Mother Coronary Artery Disease Father 25 IN @ 25. CABG Diabetes Father Diabetes Paternal Grandmother Diabetes Maternal Grandfather other (Lung cancer) Brother other (suicide) Son may of been depression Patient Allergies ALLERGIES Allergen Reactions Brilinta [Ticagrelo* Shortness of Breath Crestor [Rosuvastat* Myalgia Keflex [Cephalexin] Other: See Comments facial flushing Lipitor [Atorvastat* Other: See Comments myalgia Lovastatin Other: See Comments myalgia [place] [Hydrocodone-* Itching Current Medications Current Outpatient Medications [...] Take 100 mg by mouth once daily. afskua-qrqpwzee-mprfepg (CREON 36) 36,000-114,000- 180,000 unit delayed release [...] Abs Lymph 1.00 - 4.00 k/uL 2.26 Mccreary% % 8.5 Abs Mccreary <0.87 k/uL 0.73 Eosin% % 1.4 Abs Eosin <0.46 k/uL 0.12 Baso% % 0.3 Abs Baso <0.11 k/uL 0.03 Immature Gran % % 0.3 IMMATURE GRANS (ABS) <0.10 k/uL 0.03 NRBC /100 WBC 0.0 Absolute nRBC <0.01 k/uL <0.01 DTYPE Auto Color Yellow Yellow Clarity Clear Clear Glucose, Urine Negative Negative Bilirubin, Urine Negative Negative Ketones, Urine Negative Negative Specific [place], Ur 1.005 - 1.030 1.014 Hemoglobin/Blood,Ur Negative [...] G25.81 No new concerns 11. 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 - ICD9: [...] making components. I have reviewed the Physician Library Services Dean (PA) student's documentation and verified the findings in the note as written. Any additions or changes are noted in bold/italics. Cherise Sifuentes PA-C I spent a total of 40 minutes on the date of the service which included preparing to see the patient, cnjl-mh-nwmj patient care, completing clinical documentation, obtaining and/or reviewing separately obtained history, performing a medically appropriate examination, counseling and educating the patient/family/caregiver, ordering medications, tests, or procedures, communicating with other HCPs (not separately reported), and communicating results to the patient/family/caregiver. documented in this encounter [facility] 04-12-2025 Note HNO ID: [id number] Author: ?, ?, ? Service: ? Author [...] Caro Cassidy April 12, 2025 9:35 AM [facility] 04-12-2025 History of Present illness Narrative [...] 2025 9:35 AM documented in this encounter [facility] 04-12-2025 Note Patient Outreach (NE TNAV) ---- DOM AVILA ([id number]) 1955 F Date Time Provider Department 04/12/25 [...] Date Reviewed: 04/09/2025 Reviewed by: Sima Dumont APRN.ADDRESSOGRAPH OPERATOR - Fully Assessed Reason for Visit: [...] 100 mg by mouth once daily. - ernjty-tktczpym-qjwwfpm (CREON 36) 36,000-114,000- 180,000 unit delayed release [...] 2 diabetes mellitus without com*10/22/2016 Atherosclerosis of kaibab coronary artery with *01/09/2017 S/P angioplasty with [...] Medication management [Z79.899] (more content not included)... [facility] 04-09-2025 Instructions Sima Dumont APRN.ELIZABETH - [...] usual activities immediately. documented in this encounter [facility] 04-09-2025 Note HNO ID: [id number] Author: SIMA DUMONT APRN.ADDRESSOGRAPH OPERATOR Service: ? Author Type: Nurse Practitioner Type: Progress Notes Filed: 04/09/2025 09:59 Note Text: Sanding Machine Tender offered: Patient declines. Dom is a 69 year old who presents for an annual gynecologic exam without complaints. Nodule on adrenal gland - seeing coin machine assembler. Postmenopausal: Hysterectomy at age 41 benign fibroid, [...] Living2 SAB0 IAB0 Ectopic0 Multiple0 Live Births3 Senior Receptionist History LMP: Hysterectomy Age at Menarche: 13 Age at First : Age at Menopause: Senior Receptionist History Comments: Sexual Activity: Yes; Male Contraception: None PAST MEDICAL HISTORY Diagnosis Date Advance directive discussed with patient 04/08/2023 Discussed 03/2023: Up to date Amaurosis fugax 10/29/2017 TIA; right visual disturbance 06/2017 Arthritis tendonitis, arthritis 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 01/09/2017 [...] [place] Type 2 diabetes mellitus with hyperlipidemia ([facility]) 04/17/2024 Uterine fibroid 1994? Hysterectomy at age 41 Uterine polyp No longer an issue Vitamin D deficiency 2012 Well adult exam 01/16/2016 Last done: 09/08/2018 PAST SURGICAL HISTORY Procedure Laterality Date 2D ECHO (EXEP) 06/30/2017 EF=65%, trivial IN, TI and 1+ PI Unchanged from 04/2017 2D ECHO (EXEP) 05/14/2021 EF=60%, 1+ TI, trival IN, AI, PI 2D ECHO (EXEP) 09/16/2021 EF=60%, [...] tunnel PAST SURGICAL (more content not included)... [facility] 04-09-2025 History of Present illness Narrative Sanding Machine Tender offered: Patient declines. Raza is a 69 year old who presents for an annual gynecologic exam without complaints. Nodule on adrenal gland - seeing coin machine assembler. Postmenopausal: Hysterectomy at age 41 benign fibroid, [...] Living2 SAB0 IAB0 Ectopic0 Multiple0 Live Births3 Senior Receptionist History LMP: Hysterectomy Age at Menarche: 13 Age at First : Age at Menopause: Senior Receptionist History Comments: Sexual Activity: Yes; Male Contraception: None PAST MEDICAL HISTORY Diagnosis Date Advance directive discussed with patient 04/08/2023 Discussed 03/2023: Up to date Amaurosis fugax 10/29/2017 TIA; right visual disturbance 06/2017 Arthritis tendonitis, arthritis 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 Has been on provigil for 5-10 yrs Obstructive sleep apnea on CPAP Sibilia Other skin changes 09/26/2021 Seeing derm Pancreatic insufficiency ([facility]) 04/08/[address] Ortiz [place] RLS (restless legs syndrome) 02/22/[address] Aysha Laurent with ocular symptoms S/P angioplasty with stent 01/09/2017 stents to mid and proximal left anterior descending Art, and angio of ostium of #2 diagonal Scalp itch Seasonal allergies Dr Pompa Type 2 diabetes mellitus with hyperlipidemia ([facility]) 04/17/2024 Uterine fibroid 1994? Hysterectomy at age 41 Uterine polyp No longer an issue Vitamin D deficiency 2013 Well adult exam 01/16/2016 Last done: 09/08/2018 PAST SURGICAL HISTORY Procedure Laterality Date 2D ECHO (EXEP) 06/30/2017 EF=65%, trivial IN, TI and 1+ PI Unchanged from 04/2017 2D ECHO (EXEP) 05/14/2021 EF=60%, 1+ TI, trival IN, AI, PI 2D ECHO (EXEP) 09/16/2021 EF=60%, [...] cancer) Mother Coronary Artery Disease Father 25 [place] @ 25. CABG Diabetes Father Diabetes Paternal [...] discussed with the Patient or Patient's Authorized Ecommerce Marketing Specialist. As applicable, any other physician, advance practice provider, medical student, or other health professional student that will be observing or involved in the sensitive examination for educational or training purposes was discussed with the Patient or Authorized Ecommerce Marketing Specialist. The Patient or Authorized Ecommerce Marketing Specialist has agreed to proceed with the sensitive [...] external genitalia normal, normal Bartholin's glands, urethra, [place]'s glands, no vulvar lesions, good vaginal support, [...] 4 - Moderate documented in this encounter [facility] 04-04-2025 Note HNO ID: [id number] Author: ROCCO RENDON RN Service: ? Author [...] Rendon RN April 04, 2025 1:25 PM [facility] 04-04-2025 History of Present illness Narrative [...] 2025 1:25 PM documented in this encounter [facility] 04-04-2025 Note Patient Outreach ([facility]) ---- [place] ([id number]) 1955 F Date Time Provider Department 04/04/25 [...] Date Reviewed: 03/21/2025 Reviewed by: Chad Mariee APRN.ADDRESSOGRAPH OPERATOR - Fully Assessed Reason for Visit: [...] 100 mg by mouth once daily. - dbdxmf-yhurulih-aihiujp (CREON 36) 36,000-114,000- 180,000 unit delayed release [...] 2 diabetes mellitus without com*10/22/2016 Atherosclerosis of kaibab coronary artery with *01/09/2017 S/P angioplasty with [...] reflux disease withou (more content not included)... [facility] 03-21-2025 Note HNO ID: [id number] Author: CHAD MARIEE APRN.ADDRESSOGRAPH OPERATOR Service: ? Author Type: Nurse Practitioner Type: Progress Notes Filed: 03/22/2025 13:28 Note Text: Chief Complaint Patient presents with: Established Patient HPI: Dom Avila is a 69 year old female who presents here today for follow up DCIS. Per Dr. Georges previous note: H/o vaf-ddoiupu-gjlbvpsom diabetes mellitus, hypertension, ASCAD, and TIA who [...] breast lumpectomy for DCIS on 04/08/2021 at [facility] Pathology (from [facility]) reveals - ductal carcinoma in situ...,size of DCIS - 1.0 x 0.4 cm...,architectural type - cribriform..., nuclear grade 1-2..., necrosis - present central (expansive comedo necrosis)..., biopsy cavity is 0.5 cm from closest anterior margin (which is skin)..., ER >95%, NM >95% Postoperative course is unremarkable with no [...] Skin:denies rashes/lesions Heme:denies bleeding, over due for INVESTMENT COUNSELOR exam The ROS is otherwise negative. Past [...] March 2026. - Continue follow up with PCP/GI/Cards/INVESTMENT COUNSELOR. - Needs follow up/yearly pelvic with INVESTMENT COUNSELOR-Marck Dumont CNP. - Follow up in 6 months. - Pt. aware to call office with any questions/concerns. The patient indicates understanding of these issues and agrees with the plan. All documentation from previous visit of 09/14/24-Dr. Georges/myself was copied and pasted, documentation has been reviewed and edited as necessary for today's visit. Chad Mariee APRN.ADDRESSOGRAPH OPERATOR [facility] 03-21-2025 History of Present illness Narrative Chief Complaint Patient presents with: Established Patient HPI: Dom Avila is a 69 year old female who presents here today for follow up DCIS. Per Dr. Georges previous note: H/o fjw-nktlfjm-gvpnhljbp diabetes mellitus, hypertension, ASCAD, and TIA who [...] breast lumpectomy for DCIS on 04/08/2021 at [facility] Pathology (from [facility]) reveals - ductal carcinoma in situ...,size of DCIS - 1.0 x 0.4 cm...,architectural type - cribriform..., nuclear grade 1-2..., necrosis - present central (expansive comedo necrosis)..., biopsy cavity is 0.5 cm from closest anterior margin (which is skin)..., ER >95%, NM >95% Postoperative course is unremarkable with no [...] Skin:denies rashes/lesions Heme:denies bleeding, over due for INVESTMENT COUNSELOR exam The ROS is otherwise negative. Past [...] March 2026. - Continue follow up with PCP/GI/Cards/INVESTMENT COUNSELOR. - Needs follow up/yearly pelvic with INVESTMENT COUNSELOR-Marck Dumont CNP. - Follow up in 6 months. - Pt. aware to call office with any questions/concerns. The patient indicates understanding of these issues and agrees with the plan. All documentation from previous visit of 09/14/24-Dr. Georges/myself was copied and pasted, documentation has been reviewed and edited as necessary for today's visit. Chad Mariee APRN.ELIZABETH documented in this encounter [facility] 03-16-2025 Instructions Alexa Matute MD - 03/16/2025 8:49 AM EDT Please do CT adrenal in one year from now. Hold metformin for 2 days before the imaging scan We shall also do lab work next year February 2026 documented in this encounter [facility] 03-16-2025 Note HNO ID: [id number] Author: ALEXA MATUTE MD Service: ? Author [...] disturbance 06/2017 Arthritis tendonitis, arthritis 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 Has been on provigil for 5-10 yrs Obstructive sleep apnea on CPAP Sibilia Other skin changes 09/26/2021 Seeing derm Pancreatic insufficiency ([facility]) 04/08/[address] Ortiz [place] RLS (restless legs syndrome) 02/22/[address] Aysha Laurent with ocular symptoms S/P angioplasty with stent 01/09/2017 stents to mid and proximal left anterior descending Art, and angio of ostium of #2 diagonal Scalp itch Seasonal allergies Dr Pompa Type 2 diabetes mellitus with hyperlipidemia ([facility]) 04/17/2024 Vitamin D deficiency 2013 Well adult exam 01/16/2016 Last done: 09/08/2018 Surgical History: PAST SURGICAL HISTORY Procedure Laterality Date 2D ECHO (EXEP) 06/30/2017 EF=65%, trivial IN, TI and 1+ PI Unchanged from 04/2017 2D ECHO (EXEP) 05/14/2021 EF=60%, 1+ TI, trival IN, AI, PI 2D ECHO (EXEP) 09/16/2021 EF=60%, [...] 04/08/2021 PAST HERNANDEZ (more content not included)... 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 Olmstead Rosaroaxnne with ocular symptoms S/P angioplasty with stent 01/09/2017 stents to mid and proximal left anterior descending Art, and angio of ostium of #2 diagonal Scalp itch Seasonal allergies Dr Pompa Type 2 diabetes mellitus with hyperlipidemia ([facility]) 04/17/2024 Vitamin D deficiency 2012 Well adult exam 01/16/2016 Last done: 09/08/2018 Surgical History: PAST SURGICAL HISTORY Procedure Laterality Date 2D ECHO (EXEP) 06/30/2017 EF=65%, trivial IN, TI and 1+ PI Unchanged from 04/2017 2D ECHO (EXEP) 05/14/2021 EF=60%, 1+ TI, trival IN, AI, PI 2D ECHO (EXEP) 09/16/2021 EF=60%, [...] cancer) Mother Coronary Artery Disease Father 25 [place] @ 25. CABG Diabetes Father Diabetes Paternal [...] Comments myalgia Lovastatin Other: See Comments myalgia [place] [Hydrocodone-* Itching Current medications: Current Outpatient Medications [...] Take 100 mg by mouth once daily. cdcuzj-krhtavtv-sgkhoan (CREON 36) 36,000-114,000- 180,000 unit delayed release [...] 500 - 1400 mg/d 800 Cortisol ug/g Fish And Wildlife Warden, Ur (UFRCRT) ug/g PALLET RECTIFIER 16.32 Free Cortisol ug/L, Urine ug/L 6.69 [...] Tissues: No significant finding. Lower thorax: Unremarkable. Equipment Maintenance Supervisor (topogram) images: No additional findings. IMPRESSION: Stable [...] Lower thorax and bones: No significant findings. Equipment Maintenance Supervisor (topogram) images: No additional findings. IMPRESSION: 1. [...] SERVICE: 8.40 AM documented in this encounter [facility] 03-14-2025 Note HNO ID: [id number] Author: ?, ?, ? Service: ? Author [...] Alonzostef Cassidy March 14, 2025 11:09 AM [facility] 03-14-2025 History of Present illness Narrative [...] PATIENT PRESENTS WITH AN IMPLANTABLE OR ATTACHED BREWMASTER: No RADIOLOGY DEPARTMENT: Mammography PERIPHERAL IV DATA: Not applicable SIGNED BY: Brandon Snow March 14, 2025 7:56 AM documented in this encounter [facility] 03-14-2025 Note HNO ID: [id number] Author: DEBBY LIN Mammo Tech Service: ? Author Type: Core Composer Machine Tender Type: Progress Notes Filed: 03/14/2025 07:56 Note [...] PATIENT PRESENTS WITH AN IMPLANTABLE OR ATTACHED BREWMASTER: No RADIOLOGY DEPARTMENT: Mammography PERIPHERAL IV DATA: Not applicable SIGNED BY: Debby Lin redIT March 14, 2025 7:56 AM [facility] 03-13-2025 Note HNO ID: [id number] Author: ?, ?, ? Service: ? Author [...] Caro Cassidy March 13, 2025 9:16 AM [facility] 03-13-2025 History of Present illness Narrative [...] 2025 9:16 AM documented in this encounter [facility] 03-13-2025 Note Patient Outreach ([place]) ---- DOM AVILA ([id number]) 1955 F Date Time Provider Department 03/13/25 [...] MG DAILY August 23, 2019 3:27pm - dbarmy-vicrczto-nemncod (CREON 36) 36,000-114,000- 180,000 unit delayed release [...] 2 diabetes mellitus without com*10/22/2016 Atherosclerosis of kaibab coronary artery with *01/09/2017 S/P angioplasty with stent [Z95.820] 01/09/2017 Meniere disease, right [H81.01] 10/29/2017 Histor (more content not included)... [facility] 02-19-2025 Instructions Ori Lord DO - 02/19/2025 9:06 AM EDT We discussed your adrenal nodule: - You are undergoing further testing, including the dexamethasone suppression test, which you are starting today. - Your next appointment with the coin machine assembler is scheduled for March 16. Please continue [...] - Continue to follow up with your coin machine assembler as planned. If you have any new or worsening symptoms, please contact our office. documented in this encounter [facility] 02-19-2025 History of Present illness Narrative Images from the original note were not included. [facility] ESTABLISHED PATIENT NOTE/HISTORY AND PHYSICAL PATIENT: Dom Vel Avila (69 year old) PCP: Clifton Hung MD DATE OF SERVICE: 02/19/2025 SUBJECTIVE: CHIEF COMPLAINT: Follow Up (6 mo f/u. Patient has no new complaints and denies any urinary issues. ) HISTORY OF PRESENT ILLNESS: Recording using Emit[employer] software for draft documentation of the visit was discussed with the patient/authorized inbound call center representative; all questions welcomed and answered. Patient/authorized inbound call center representative agreed to proceed The patient was [...] scheduled and a follow-up appointment with her coin machine assembler on March 16. Review of Symptoms: Genitourinary: [...] (04/08/2023), 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), Arthritis, 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 (01/09/2017), Garibay's cyst of knee, left (03/02/2018), Breast neoplasm, Tis (DCIS), 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), Cataract, Colon polyp (2011), Controlled type 2 diabetes mellitus without complication, without long-term current use of insulin ([facility]) (10/22/2016), De Quervain's tenosynovitis, left (07/31/2019), Diabetic eye exam ([facility]) (01/16/2016), Ductal carcinoma in situ [...] ezetimibe, pioglitazone, OTC NUTRITIONAL SUPPLEMENT, coenzyme q10, owiutk-vxpzklgg-vkuwdii, lisinopril, estradiol, calcium citrate-vitamin d3, metformin, ammonium [...] for: Cr, UCx, CT , note from Manager Integrated As background copied from prior notes, changes [...] may be inappropriate. documented in this encounter [facility] 02-19-2025 Note HNO ID: [id number] Author: ORI LORD DO Service: ? Author Type: Physician Type: Progress Notes Filed: 02/19/2025 09:18 Note Text: [facility] ESTABLISHED PATIENT NOTE/HISTORY AND PHYSICAL PATIENT: Dom Avila (69 year old) PCP: Clifton Hung MD DATE OF SERVICE: 02/19/2025 SUBJECTIVE: CHIEF COMPLAINT: Follow Up (6 mo f/u. Patient has no new complaints and denies any urinary issues. ) HISTORY OF PRESENT ILLNESS: Recording using Emitless software for draft documentation of the visit was discussed with the patient/authorized inbound call center representative; all questions welcomed and answered. Patient/authorized inbound call center representative agreed to proceed The patient was [...] scheduled and a follow-up appointment with her coin machine assembler on March 16. Review of Symptoms: Genitourinary: [...] (04/08/2023), 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), Arthritis, 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 (01/09/2017), Garibay's cyst of knee, left (03/02/2018), Breast neoplasm, Tis (DCIS), 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), Cataract, Colon polyp (2011), Controlled type 2 diabetes mellitus without complication, without long-term current use of insulin ([facility]) (10/22/2016), De Quervain's tenosynovitis, left (07/31/2019), Diabetic eye exam ([facility]) (01/16/2016), Ductal carcinoma in situ [...] (10/29/2017), Mixed hyperlipidemia (05/31/2009), Narcolepsy without cataplexy ([facility]) (01/16/2016), Obstructive sleep apnea on CPAP, Other skin changes (09/26/2021), Pancreatic insufficiency ([facility]) (04/08/2023), Psoriasis, RLS (restless legs syndrome) (02/22/2023), Rosacea, S/P angioplasty with stent (01/09/2017), Scalp itch, Seasonal allergies, Type 2 diabetes mellitus with hyperlipidemia ([facility]) (04/17/2024), Vitamin D deficiency (2012), [...] repair, detached reti (more content not included)... [facility] 02-16-2025 Instructions Alexa Matute MD - [...] labs are drawn documented in this encounter [facility] 02-16-2025 Note HNO ID: [id number] Author: ALEXA MATUTE MD Service: ? Author [...] disturbance 06/2017 Arthritis tendonitis, arthritis 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 01/09/2017 [...] [place] Type 2 diabetes mellitus with hyperlipidemia ([facility]) 04/17/2024 Vitamin D deficiency 2013 Well adult exam 01/16/2016 Last done: 09/08/2018 Surgical History: PAST SURGICAL HISTORY Procedure Laterality Date 2D ECHO (EXEP) 06/30/2017 EF=65%, trivial IN, TI and 1+ PI Unchanged from 04/2017 2D ECHO (EXEP) 05/14/2021 EF=60%, 1+ TI, trival IN, AI, PI 2D ECHO (EXEP) 09/16/2021 EF=60%, [...] left foot surge (more content not included)... [facility] 02-16-2025 History of Present illness Narrative [...] disturbance 06/2017 Arthritis tendonitis, arthritis 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 01/09/2017 [...] hyperlipidemia 05/31/2009 statin intolerance Narcolepsy without cataplexy ([facility]) 01/16/2016 Especially with long drives. [...] [place] Type 2 diabetes mellitus with hyperlipidemia ([facility]) 04/17/2024 Vitamin D deficiency 2013 Well adult exam 01/16/2016 Last done: 09/08/2018 Surgical History: PAST SURGICAL HISTORY Procedure Laterality Date 2D ECHO (EXEP) 06/30/2017 EF=65%, trivial IN, TI and 1+ PI Unchanged from 04/2017 2D ECHO (EXEP) 05/14/2021 EF=60%, 1+ TI, trival IN, AI, PI 2D ECHO (EXEP) 09/16/2021 EF=60%, [...] cancer) Mother Coronary Artery Disease Father 25 IN @ 25. CABG Diabetes Father Diabetes Paternal [...] Comments myalgia Lovastatin Other: See Comments myalgia [place] [Hydrocodone-* Itching Current medications: Current Outpatient Medications [...] 100 MG DAILY August 23, 2019 3:27pm tpuhyu-makzhfae-cfyivjo (CREON 36) 36,000-114,000- 180,000 unit delayed release [...] 500 - 1400 mg/d 800 Cortisol ug/g Fish And Wildlife Warden, Ur (UFRCRT) ug/g PALLET RECTIFIER 16.32 Free Cortisol ug/L, Urine ug/L 6.69 [...] Tissues: No significant finding. Lower thorax: Unremarkable. Equipment Maintenance Supervisor (topogram) images: No additional findings. IMPRESSION: Stable [...] Lower thorax and bones: No significant findings. Equipment Maintenance Supervisor (topogram) images: No additional findings. IMPRESSION: 1. [...] SERVICE: 9:00 AM documented in this encounter [facility] 01-30-2025 History of Present illness Narrative Pt chart reviewed as part of population health initiative focused on statin use in patients with diabetes (DM) or cardiovascular disease (CVD). Dom Avila is identified through data from [employer] (insurer) as a potential candidate for statin [...] Comments myalgia Lovastatin Other: See Comments myalgia [place] [Hydrocodone-* Itching PAST MEDICAL HISTORY Diagnosis Date Advance directive discussed with patient 04/08/2023 Discussed 03/2023: Up to date Amaurosis fugax 10/29/2017 TIA; right visual disturbance 06/2017 Arthritis tendonitis, arthritis 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 (HCC) 01/09/[address] 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 Cataract Colon polyp 2011 Controlled type 2 diabetes mellitus without complication, without long-term current use of insulin ([facility]) 10/22/2016 De Quervain's tenosynovitis, left 07/31/2019 Diabetic eye exam ([facility]) 01/16/2016 Lat done: 12/03/2017 No [...] [place] Type 2 diabetes mellitus with hyperlipidemia ([facility]) ([facility]) 04/17/2024 Vitamin D deficiency 2013 [...] BCACP Clinical Pharmacist documented in this encounter [facility] 01-30-2025 Note HNO ID: [id number] Author: VALARIE RUSSELL RPh Service: ? Author Type: Pharmacist Type: Progress Notes Filed: 01/30/2025 15:41 Note Text: Pt chart reviewed as part of population health initiative focused on statin use in patients with diabetes (DM) or cardiovascular disease (CVD). Dom Avila is identified through data from [employer] (insurer) as a potential candidate for statin [...] Comments myalgia Lovastatin Other: See Comments myalgia [place] [Hydrocodone-* Itching PAST MEDICAL HISTORY Diagnosis Date Advance directive discussed with patient 04/08/2023 Discussed 03/2023: Up to date Amaurosis fugax 10/29/2017 TIA; right visual disturbance 06/2017 Arthritis tendonitis, arthritis 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 (HCC) [...] be removed for measure. Valarie Russell, Pharm.D, [facility] Clinical Pharmacist [facility] 01-30-2025 Note Patient Outreach (PM FBEA) ---- DOM AVILA ([id number]) 1955 F Date Time Provider Department 01/30/25 VALARIE RUSSELL [employer] [facility] [facility] During your visit today, we recorded the following information about you: Valarie Russell [facility] 01/30/2025 3:41 PM Signed Pt chart reviewed as part of population health initiative focused on statin use in patients with diabetes (DM) or cardiovascular disease (CVD). Dom Avila is identified through data from [employer] (insurer) as a potential candidate for statin [...] Comments myalgia Lovastatin Other: See Comments myalgia [place] [Hydrocodone-* Itching PAST MEDICAL HISTORY Diagnosis Date Advance directive discussed with patient 04/08/2023 Discussed 03/2023: Up to date Amaurosis fugax 10/29/2017 TIA; right visual disturbance 06/2017 Arthritis tendonitis, arthritis 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 (HCC) 01/09/[address] 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 Cataract Colon polyp 2011 Controlled type 2 diabetes mellitus without complication, without long-term current use of insulin ([facility]) 10/22/2016 De Quervain's tenosynovitis, left 07/31/2019 Diabetic eye exam ([facility]) 01/16/2016 Lat done: 12/03/2017 No [...] [place] Type 2 diabetes mellitus with hyperlipidemia ([facility]) ([facility]) 04/17/2024 Vitamin D deficiency 2013 [...] NORCO (HYDROCODONE-ACETAMINOPHEN) 10/29 (more content not included)... [facility] 01-01-2025 Telephone encounter Note Nirmatrelvir/Ritonavir (Paxlovid) [...] Madrid APRN.CNP January 01, 2025 11:07 AM [facility] 01-01-2025 Instructions Francine Madrid APRN.CNP - 01/01/2025 11:09 AM EST Images from the original note were not included. FACT SHEET FOR PATIENTS, PARENTS, AND CAREGIVERS EMERGENCY USE AUTHORIZATION (EUA) OF PAXLOVID FOR CORONAVIRUS DISEASE 2019 (COVID-19) You are being given this Fact Sheet because your healthcare provider believes it is necessary to provide you with PAXLOVID for the treatment of ggoq-cf-blpahopp coronavirus disease (COVID-19) caused by the SARS-CoV-2 [...] make PAXLOVID available for the treatment of uqte-pc-rixirqcu COVID-19 in adults and children 12 years [...] virus. COVID-19 illnesses have ranged from very cvdg-jb-eczsey, including illness resulting in . While information [...] available under EUA for the treatment of tjaz-pi-tecoapsp COVID-19 in adults and children 12 years [...] of using PAXLOVID to treat children with oari-vt-jsvrldjk COVID-19. What is the most important information [...] the medicines you take, including prescription and tazm-bel-ukhegqz medicines, vitamins, and herbal supplements. Your healthcare [...] morning or evening, depending on when you pick and shovel man your prescription, or as your healthcare provider [...] PAXLOVID is FDA-approved for the treatment of feoh-mi-nhislrkt COVID-19 in certain adults; however, there are not sufficient quantities of the approved presentations (i.e., dose packs) of PAXLOVID at this time. This EUA continues to authorize the emergency use of PAXLOVID for the approved patient population to ensure continued access in order to meet the public health need. VEKLURY (remdesivir) is FDA-approved for the treatment of tbur-fu-dbxgbury COVID-19 in certain adults and children. Talk with your healthcare provider to see if VEKLURY is appropriate for you. For information on the emergency use of other medicines that are authorized by FDA to treat people with COVID-19, please go to https://www.fda.gov/emergency-prepared dztd-tqu-bgnfrchz/bbw-oejkp-hzptyxmzqd -qff-oybfjm-mkxpgnsmc/vzljwdnzi-wfs-zd thorization. Your healthcare provider may talk with [...] to FDA MedWatch at www.fda.gov/medwatch or call 2-941-BQW-4787 or you can report side effects to [facility]. at the contact information provided below. How [...] bottom of blister pack at this website: https://www.Cellca/ or talk with your healthcare provider. Information on the authorized shelf-life extensions for PAXLOVID may also be found at https://www.fda.gov/emergency-prepared pmlj-bgs-uaykchop/ofq-jmuqt-osaouuania -mjq-dzzkmn-vxyuwmtgu/expiration-datin g-extension. How can I learn more about COVID-19? Ask your healthcare provider. Visit https://www.cdc.gov/COVID19. Contact your local or state public health department. What is an Emergency Use Authorization (EUA)? The [place] FDA has made PAXLOVID available under an emergency access mechanism called an Emergency Use Authorization (EUA). The EUA is supported by a [employer] of Health and Human Services ([facility]) declaration that circumstances exist to justify the [...] call the telephone number provided below. Website: www.[employer] Telephone number: (1-877-c19-PACK) Distributed by [employer] [place] [address] [id number] Revised: 03/2023 documented in this encounter [facility] 01-01-2025 Miscellaneous Notes Nirmatrelvir/Ritonavir (Paxlovid) Considerations [...] risk of HIV-1 resistance development. Francine Madrid APRN.ADDRESSOGRAPH OPERATOR January 01, 2025 11:07 AM Pt notified of results and provider message. Pt reports she would like a rx to be sent to [facility] in [place]. Pharmacy updated. Em Mahmood LPN Called and [...] it is needed. documented in this encounter [facility] 01-01-2025 Telephone encounter Note Pt notified of results and provider message. Pt reports she would like a rx to be sent to [facility] in [place]. Pharmacy updated. Em Mahmood LPN [facility] 01-01-2025 Telephone encounter Note Called and left message on patients voicemail to return call to the office and ask to speak with a triage nurse. Natalie Presley MA [facility] 01-01-2025 Telephone encounter Note Please let patient know she has Covid. She is still in the window for treatment if she would like it but if she has mild symptoms and no shortness of breath I do not think it is needed. [facility] 01-01-2025 Telephone encounter Note Prescription Refill [...] Deshpande LPN January 01, 2025 7:29 AM [facility] 01-01-2025 Miscellaneous Notes Prescription Refill Information [...] 2025 7:29 AM documented in this encounter [facility] 12-29-2024 Note SARS-COV-2 (AGENT OF COVID-19) RNA: Detected INFLUENZA A RNA: Not detected INFLUENZA B RNA: Not detected RESPIRATORY SYNCYTIAL VIRUS (RSV) RNA: Not detected [facility] Comment on above: Performed By: #### [id number] ####[facility] LABCLIA [id number] [address] OF [facility] 12-29-2024 Note HNO ID: [id number] Author: FRANCINE MADRID APRN.ADDRESSOGRAPH OPERATOR Service: ? Author Type: Nurse Practitioner [...] disturbance 06/2017 Arthritis tendonitis, arthritis 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 (HCC) 01/09/[address] 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 Cataract Colon polyp 2011 Controlled type 2 diabetes mellitus without complication, without long-term current use of insulin ([facility]) 10/22/2016 De Quervain's tenosynovitis, left 07/31/2019 Diabetic eye exam ([facility]) 01/16/2016 Lat done: 12/03/2017 No [...] [place] Type 2 diabetes mellitus with hyperlipidemia ([facility]) ([facility]) 04/17/2024 Vitamin D deficiency 2013 Well adult exam 01/16/2016 Last done: 09/08/2018 Previous Surgical History PAST SURGICAL HISTORY Procedure Laterality Date 2D ECHO (EXEP) 06/30/2017 EF=65%, trivial IN, TI and 1+ PI Unchanged from 04/2017 2D ECHO (EXEP) 05/14/2021 EF=60%, 1+ TI, trival IN, AI, PI 2D ECHO (EXEP) 09/16/2021 EF=60%, [...] cancer) Mother Coronary Artery Disease Father 25 IN @ 25. CABG Diabetes Father Diabetes Paternal Grandmother Diabetes Maternal Grandfather other (Lung cancer) Brother other (suicide) Son may of been depression Patient Allergies ALLERGIES Allergen Reactions Brilinta [Ticagrelo* Shortness of Breath Crestor (more content not included)... 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 Cataract Colon polyp 2011 Controlled type 2 diabetes mellitus without complication, without long-term current use of insulin (HCC) 10/22/2016 De Quervain's tenosynovitis, left 07/31/2019 Diabetic eye exam ([facility]) 01/16/2016 Lat done: 12/03/2017 No [...] Date 2D ECHO (EXEP) 06/30/2017 EF=65%, trivial IN, TI and 1+ PI Unchanged from 04/2017 2D ECHO (EXEP) 05/14/2021 EF=60%, 1+ TI, trival IN, AI, PI 2D ECHO (EXEP) 09/16/2021 EF=60%, [...] cancer) Mother Coronary Artery Disease Father 25 IN @ 25. CABG Diabetes Father Diabetes Paternal Grandmother Diabetes Maternal Grandfather other (Lung cancer) Brother other (suicide) Son may of been depression Patient Allergies ALLERGIES Allergen Reactions Brilinta [Ticagrelo* Shortness of Breath Crestor [Rosuvastat* Myalgia Keflex [Cephalexin] Other: See Comments facial flushing Lipitor [Atorvastat* Other: See Comments myalgia Lovastatin Other: See Comments myalgia [place] [Hydrocodone-* Itching Current Medications Current Outpatient Medications [...] 100 MG DAILY August 23, 2019 3:27pm vrlado-bfiqegwv-snfkfra (CREON 36) 36,000-114,000- 180,000 unit delayed release [...] up with cardiology for re-eval. Francine Madrid APRN.ADDRESSOGRAPH OPERATOR documented in this encounter [facility] 12-14-2024 Telephone encounter Note The following approved medication requests have been transmitted electronically. Requested Prescriptions Signed Prescriptions Disp Refills omeprazole (PRILOSEC) 40 mg capsule 30 capsule 5 Sig: Take 1 capsule by mouth once daily. Authorizing Provider: CLIFTON HUNG MD [facility] 12-14-2024 Miscellaneous Notes The following approved [...] 2024 5:43 PM documented in this encounter [facility] 12-14-2024 Telephone encounter Note The patient [...] Escobar RN December 14, 2024 5:43 PM [facility] 11-03-2024 Instructions Alexa Matute MD - [...] the urine sample documented in this encounter [facility] 11-03-2024 Note HNO ID: [id number] Author: ALEXA MATUTE MD Service: ? Author [...] disturbance 06/2017 Arthritis tendonitis, arthritis 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 (HCC) 01/09/[address] 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 Cataract Colon polyp 2011 Controlled type 2 diabetes mellitus without complication, without long-term current use of insulin (HCC) 10/22/2016 De Quervain's tenosynovitis, left 07/31/2019 Diabetic eye exam ([facility]) 01/16/2016 Lat done: 12/03/2017 No [...] Date 2D ECHO (EXEP) 06/30/2017 EF=65%, trivial IN, TI and 1+ PI Unchanged from 04/2017 2D ECHO (EXEP) 05/14/2021 EF=60%, 1+ TI, trival IN, AI, PI 2D ECHO (EXEP) 09/16/2021 EF=60%, [...] summer 2022 ST (more content not included)... [facility] 11-03-2024 History of Present illness Narrative [...] disturbance 06/2017 Arthritis tendonitis, arthritis 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 (HCC) 01/09/[address] 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 Cataract Colon polyp 2011 Controlled type 2 diabetes mellitus without complication, without long-term current use of insulin ([facility]) 10/22/2016 De Quervain's tenosynovitis, left 07/31/2019 Diabetic eye exam ([facility]) 01/16/2016 Lat done: 12/03/2017 No [...] [place] Type 2 diabetes mellitus with hyperlipidemia ([facility]) ([facility]) 04/17/2024 Vitamin D deficiency 2013 Well adult exam 01/16/2016 Last done: 09/08/2018 Surgical History: PAST SURGICAL HISTORY Procedure Laterality Date 2D ECHO (EXEP) 06/30/2017 EF=65%, trivial IN, TI and 1+ PI Unchanged from 04/2017 2D ECHO (EXEP) 05/14/2021 EF=60%, 1+ TI, trival IN, AI, PI 2D ECHO (EXEP) 09/16/2021 EF=60%, [...] cancer) Mother Coronary Artery Disease Father 25 IN @ 25. CABG Diabetes Father Diabetes Paternal [...] Comments myalgia Lovastatin Other: See Comments myalgia [place] [Hydrocodone-* Itching Current medications: Current Outpatient Medications [...] 100 MG DAILY August 23, 2019 3:27pm msfgyq-rjumtqkc-wghvtyt (CREON 36) 36,000-114,000- 180,000 unit delayed release [...] Tissues: No significant finding. Lower thorax: Unremarkable. Equipment Maintenance Supervisor (topogram) images: No additional findings. IMPRESSION: Stable [...] Lower thorax and bones: No significant findings. Equipment Maintenance Supervisor (topogram) images: No additional findings. IMPRESSION: 1. [...] SERVICE: 12:48 PM documented in this encounter [facility] 10-18-2024 Instructions Clifton Hung MD - 10/18/2024 9:51 AM EST Please get labs and urine test done on or after prior to your next visit. documented in this encounter [facility] 10-18-2024 History of Present illness Narrative [...] last visit 09/2024 Patient sees Cardiology - [facility] last visit 04/2024 Past medical history, appointments, medications, allergies reviewed. 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 CABG Diabetes Father Diabetes Paternal Grandmother Diabetes Maternal Grandfather other (Lung cancer) Brother other (suicide) Son may of been depression Patient Allergies ALLERGIES Allergen Reactions Brilinta [Ticagrelo* Shortness of Breath Crestor [Rosuvastat* Myalgia Keflex [Cephalexin] Other: See Comments facial flushing Lipitor [Atorvastat* Other: See Comments myalgia Lovastatin Other: See Comments myalgia [place] [Hydrocodone-* Itching Current Medications Current Outpatient Medications [...] 100 MG DAILY August 23, 2019 3:27pm xzzbkq-lajlwimp-qnuewfu (CREON 36) 36,000-114,000- 180,000 unit delayed release [...] Abs Lymph 1.00 - 4.00 k/uL 1.82 Mccreary% % 9.0 Abs Mccreary <0.87 k/uL 0.47 Eosin% % 1.3 Abs [...] Type 2 diabetes mellitus with hyperlipidemia (HCC) ([facility]) - ICD9: 250.80, 272.4, ICD10: [...] complication, without long-term current use of insulin ([facility]) - ICD9: 250.00, ICD10: E11.9 - Controlled - Improving control - Continue current medications - Counseled on healthy diet and regular exercise - Discussed need for and benefit of weight loss. BMI 24.88 kg/(m^2) 3. Diabetic eye exam ([facility]) - ICD9: V72.0, 250.00, ICD10: [...] able to tolerate statins. 6. 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) - [...] Clifton Hung MD documented in this encounter [facility] 10-18-2024 Note HNO ID: [id number] Author: CLIFTON HUNG MD Service: ? Author [...] last visit 09/2024 Patient sees Cardiology - [facility] last visit 04/2024 Past medical history, appointments, medications, allergies reviewed. Previous Medical History PAST MEDICAL HISTORY Diagnosis Date Advance directive discussed with patient 04/08/2023 Discussed 03/2023: Up to date Amaurosis fugax 10/29/2017 TIA; right visual disturbance 06/2017 Arthritis tendonitis, arthritis 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 (HCC) [...] Date 2D ECHO (EXEP) 06/30/2017 EF=65%, trivial IN, TI and 1+ PI Unchanged from 04/2017 2D ECHO (EXEP) 05/14/2021 EF=60%, 1+ TI, trival IN, AI, PI 2D ECHO (EXEP) 09/16/2021 EF=60%, [...] Artery Disease Father (more content not included)... [facility] 10-13-2024 Telephone encounter Note Left detailed message. Shakeel Yang MA [facility] 10-13-2024 Miscellaneous Notes Left detailed message. Shakeel Yang MA Labs placed. Patient calls and states that she has a 6 month follow up on 10/18. Patient asking if provider wants her to get labs done prior to appointment? Please review and adviseSylwia RN documented in this encounter [facility] 10-13-2024 Telephone encounter Note Labs placed. [facility] 10-13-2024 Telephone encounter Note Patient calls and states that she has a 6 month follow up on 10/18. Patient asking if provider wants her to get labs done prior to appointment? Please review and advise, Sylwia Kirk RN [facility] 10-02-2024 Note HNO ID: [id number] Author: SHAKEEL YANG MA Service: ? Author Type: Hearth Feeder Type: Progress Notes Filed: 10/02/2024 17:02 Note Text: Scan on 09/29/2024 4:11 PM by ProviderDeyvi PA-C: Consultation - Ophthalmology Shakeel Yang MA [facility] 10-02-2024 History of Present illness Narrative Scan on 09/29/2024 4:11 PM by Deyvi Yadav PA-C: Consultation - Ophthalmology Shakeel Yang MA documented in this encounter [facility] 09-26-2024 Telephone encounter Note Notified via [employer]. Advised to call in and schedule. Kassandra Mitchell MA [facility] 09-26-2024 Miscellaneous Notes Notified via [employer]. Advised to call in and schedule. Kassandra Mitchell MA Patient should have an ER follow up appt. See [employer] message. Kassandra Mitchell MA documented in this encounter [facility] 09-26-2024 Telephone encounter Note Patient should have an ER follow up appt. [facility] 09-26-2024 Telephone encounter Note See [employer] message. Kassandra Mitchell MA [facility] 09-22-2024 Alexa Horton MD - 09/22/2024 [...] let me know documented in this encounter [facility] 09-22-2024 Note HNO ID: [id number] Author: ALEXA MATUTE MD Service: ? Author [...] disturbance 06/2017 Arthritis tendonitis, arthritis 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 (HCC) 01/09/[address] 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 CAD (coronary artery disease) Cataract Colon polyp 2011 Controlled type 2 diabetes mellitus without complication, without long-term current use of insulin ([facility]) 10/22/2016 De Quervain's tenosynovitis, left [...] Date 2D ECHO (EXEP) 06/30/2017 EF=65%, trivial IN, TI and 1+ PI Unchanged from 04/2017 2D ECHO (EXEP) 05/14/2021 EF=60%, 1+ TI, trival IN, AI, PI 2D ECHO (EXEP) 09/16/2021 EF=60%, [...] ovaries intact Family (more content not included)... 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 CABG Diabetes Father Diabetes Paternal [...] Comments myalgia Lovastatin Other: See Comments myalgia [place] [Hydrocodone-* Itching Current medications: Current Outpatient Medications [...] 100 MG DAILY August 23, 2019 3:27pm bfeyzz-lhrsqmsg-gykincb (CREON 36) 36,000-114,000- 180,000 unit delayed release [...] Tissues: No significant finding. Lower thorax: Unremarkable. Equipment Maintenance Supervisor (topogram) images: No additional findings. IMPRESSION: Stable [...] Lower thorax and bones: No significant findings. Equipment Maintenance Supervisor (topogram) images: No additional findings. IMPRESSION: 1. [...] SERVICE: 12:48 PM documented in this encounter [facility] 09-14-2024 Note HNO ID: [id number] Author: CHAD MARIEE APRN.ELIZABETH Service: ? Author Type: Nurse Practitioner Type: Progress Notes Filed: 09/14/2024 09:22 Note Text: Chief Complaint Patient presents with: Established Patient HPI: Dom Avila is a 69 year old female who presents here today for follow up DCIS. Per Dr. Georges previous note: H/o bob-repqrld-wqlqvfcki diabetes mellitus, hypertension, ASCAD, and TIA who [...] breast lumpectomy for DCIS on 04/08/2021 at [facility] Pathology (from [facility]) reveals - ductal carcinoma in situ...,size of DCIS - 1.0 x 0.4 cm...,architectural type - cribriform..., nuclear grade 1-2..., necrosis - present central (expansive comedo necrosis)..., biopsy cavity is 0.5 cm from closest anterior margin (which is skin)..., ER >95%, NM >95% Postoperative course is unremarkable with no [...] rashes/lesions Heme:denies bleeding, up to date on INVESTMENT COUNSELOR exam-next due next 2024 The ROS is [...] Continue tamoxifen. - Continue follow up with PCP/GI/Cards/INVESTMENT COUNSELOR. - Mammogram due March 2025. - Follow up after above. - Pt. aware to call office with any questions/concerns. The sensitive examination was discussed with the Patient or Patient's Authorized Ecommerce Marketing Specialist. As applicable, any other physician, advance practice provider, medical student, or other health professional student that will be observing or involved in the sensitive examination for educational or training purposes was discussed with the Patient or Authorized Ecommerce Marketing Specialist. The Patient or Authorized Ecommerce Marketing Specialist has agreed to proceed with the sensitive examination. (Sensitive examination includes inspection and/or palpation of the breasts, pelvis, prostate and anorectal regions) The patient indicates understanding of these issues and agrees with the plan. All documentation from previous visit of 03/14/24-Dr. Georges/myself was copied and pasted, documentation has been reviewed and edited as necessary for today's visit. Chad Mariee APRN.[facility] 09-14-2024 History of Present illness Narrative Chief Complaint Patient presents with: Established Patient HPI: Dom Avila is a 69 year old female who presents here today for follow up DCIS. Per Dr. 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 2024 The ROS [...] Continue tamoxifen. - Continue follow up with PCP/GI/Cards/INVESTMENT COUNSELOR. - Mammogram due March 2025. - Follow up after above. - Pt. aware to call office with any questions/concerns. The sensitive examination was discussed with the Patient or Patient's Authorized Ecommerce Marketing Specialist. As applicable, any other physician, advance practice provider, medical student, or other health professional student that will be observing or involved in the sensitive examination for educational or training purposes was discussed with the Patient or Authorized Ecommerce Marketing Specialist. The Patient or Authorized Ecommerce Marketing Specialist has agreed to proceed with the sensitive [...] Chad Mariee APRN.ELIZABETH documented in this encounter [facility] 08-15-2024 History of Present illness Narrative [...] PATIENT PRESENTS WITH AN IMPLANTABLE OR ATTACHED BREWMASTER: No RADIOLOGY DEPARTMENT: CT; Exam(s) Completed: Adrenal PERIPHERAL IV DATA: Not applicable SIGNED BY: RT Susie(Sunil) August 15, 2024 11:57 AM documented in this encounter [facility] 08-15-2024 Note HNO ID: [id number] Author: LAURA RIVAS RT(Sunil) Service: ? Author Type: Core Composer Machine Tender Type: Progress Notes Filed: 08/15/2024 11:57 Note [...] PATIENT PRESENTS WITH AN IMPLANTABLE OR ATTACHED BREWMASTER: No RADIOLOGY DEPARTMENT: CT; Exam(s) Completed: Adrenal PERIPHERAL IV DATA: Not applicable SIGNED BY: RT Susei(R) August 15, 2024 11:57 AM [facility] 08-04-2024 Instructions Ori Lord DO - [...] rest or medications. documented in this encounter [facility] 08-04-2024 Note HNO ID: [id number] Author: ORI LORD DO Service: ? Author Type: Physician Type: Procedures Filed: 08/11/2024 19:05 Note Text: CYSTOSCOPY , STENT REMOVAL PROCEDURE NOTE: Dom Avila is a 69 year old female who presents for a cystoscopy and stent removal. Pt ID verified with patient: Yes Procedure verified with patient: Yes Procedure confirmed with physician and underwriting support specialist: Yes Fire Safety Check List [...] increase oral fluid intake as directed. A ampoule sealer Nicole Madsen was present for the entire visit including examination/procedure. [facility] 08-04-2024 Procedure note CYSTOSCOPY , STENT REMOVAL PROCEDURE NOTE: Dom Avila is a 69 year old female who presents for a cystoscopy and stent removal. Pt ID verified with patient: Yes Procedure verified with patient: Yes Procedure confirmed with physician and underwriting support specialist: Yes Fire Safety Check List [...] increase oral fluid intake as directed. A ampoule sealer Nicole Madsen was present for the entire visit including examination/procedure. [facility] 08-04-2024 Note HNO ID: [id number] Author: ORI LORD DO Service: ? 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 ([facility]) (01/09/2017), Garibay's cyst of knee, left (03/02/2018), Breast neoplasm, Tis (DCIS), 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), CAD (coronary artery disease), Cataract, Colon polyp (2011), Controlled type 2 diabetes mellitus without complication, without long-term current use of insulin ([facility]) (10/22/2016), De Quervain's tenosynovitis, left (07/31/2019), Diabetic eye exam ([facility]) (01/16/2016), Ductal carcinoma in situ [...] NUTRITIONAL SUPPLEMENT, pioglitazone, omeprazole, doxycycline, coenzyme q10, isrwql-xwpvnpyw-umtdogp, lisinopril, estradiol, tamoxifen, calcium citrate-vitamin d3, ezetimibe, [...] OBJECTIVE: PHYSICAL EXAMINATI (more content not included)... [facility] 08-04-2024 History of Present illness Narrative Images from the original note were not included. 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 (HCC) (01/09/2017), Garibay's cyst of knee, left (03/02/2018), Breast neoplasm, Tis (DCIS), 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), CAD (coronary artery disease), Cataract, Colon polyp (2011), Controlled type 2 diabetes mellitus without complication, without long-term current use of insulin ([facility]) (10/22/2016), De Quervain's tenosynovitis, left (07/31/2019), Diabetic eye exam ([facility]) (01/16/2016), Ductal carcinoma in situ [...] NUTRITIONAL SUPPLEMENT, pioglitazone, omeprazole, doxycycline, coenzyme q10, msxghm-axmbpvex-aupnuho, lisinopril, estradiol, tamoxifen, calcium citrate-vitamin d3, ezetimibe, [...] may be inappropriate. documented in this encounter [facility] 08-04-2024 Procedure note CYSTOSCOPY , STENT REMOVAL PROCEDURE NOTE: Dom Avila is a 69 year old female who presents for a cystoscopy and stent removal. Pt ID verified with patient: Yes Procedure verified with patient: Yes Procedure confirmed with physician and underwriting support specialist: Yes Fire Safety Check List [...] increase oral fluid intake as directed. A ampoule sealer Nicole Madsen was present for the entire visit including examination/procedure. documented in this encounter [facility] 08-02-2024 Telephone encounter Note The following approved medication requests have been transmitted electronically. Requested Prescriptions Signed Prescriptions Disp Refills pioglitazone (ACTOS) 15 mg tablet 90 tablet 1 Sig: Take 1 tablet by mouth once daily. Authorizing Provider: CLIFTON HUNG MD [facility] 08-02-2024 Miscellaneous Notes The following approved [...] 2024 1:27 PM documented in this encounter [facility] 08-02-2024 Telephone encounter Note Prescription Refill [...] Valdes LPN August 02, 2024 1:27 PM [facility] 07-17-2024 Telephone encounter Note The following approved medication requests have been transmitted electronically. Requested Prescriptions Signed Prescriptions Disp Refills omeprazole (PRILOSEC) 40 mg capsule 30 capsule 5 Sig: Take 1 capsule by mouth once daily. Authorizing Provider: CLIFTON HUNG MD [facility] 07-17-2024 Miscellaneous Notes The following approved [...] 2024 1:22 PM documented in this encounter [facility] 07-17-2024 Telephone encounter Note Prescription Refill [...] Nunez LPN July 17, 2024 1:22 PM [facility] 07-11-2024 Alexa Horton MD - 07/11/2024 1:33 PM EDT Please hold metformin for 2 days before the imaging for CT with contrast documented in this encounter [facility] 07-11-2024 Note HNO ID: [id number] Author: ALEXA MATUTE MD Service: ? 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 Gomez 03/02/2018: Garibay's cyst of knee, left 03/2021: Breast neoplasm, Tis (DCIS), left No date: CAD (coronary artery disease) No date: Cataract 2011: Colon polyp 10/22/2016: Controlled type 2 diabetes mellitus without complication, without long-term current use of insulin ([facility]) 07/31/2019: De Quervain's tenosynovitis, left 01/16/2016: Diabetic eye exam ([facility]) Comment: Lat done: 12/03/2017 No [...] 06/30/2017: 2D ECHO (EXEP) Comment: EF=65%, trivial IN, TI and 1+ PI Unchanged from 04/201705/14/2021: 2D ECHO (EXEP) Comment: EF=60%, 1+ TI, trival IN, AI, PI 09/16/2021: 2D ECHO (EXEP) Comment: [...] cancer) Mother Coronary Artery Disease Father 25 IN @ 25. CABG Diabetes Father Diabetes Paternal [...] Comments myalgia Lovastatin Other: See Comments myalgia [place] [Hydrocodone-* Itching Current medications: Current Outpatient Medications [...] 100 MG DAILY August 23, 2019 3:27pm muxmsf-hwhttxie-rnydtsw (CREON 36) 36,000-114,000- 180,000 unit delayed release [...] Tissues: No significant finding. Lower thorax: Unremarkable. Equipment Maintenance Supervisor (topogram) images: No additional findings. IMPRESSION: Stable [...] SERVICE: 12:48 PM documented in this encounter [facility] 07-04-2024 Instructions Pascual Ori, - 07/04/2024 [...] tobacco products. Take any kinds of medicines, ijib-wea-ykxixoo supplements or recreational drugs. Have other family [...] the definition of microhematuria according to the [employer]. Repeat testing is not required [...] eat or drink or what to avoid. Gordon / Prognosis What can I expect if [...] the most likely cause. A note from [facility] You might have blood in your [...] patient s medical history, current prescription and slwq-qld-drelfyv medications, and allergies to medications, including anesthetics. [...] her bladder before the procedure begins. The mcqi-xr-zeyd process may be similar to this: The [...] urethral opening to relieve discomfort Take an rahn-eap-dvdhsdi pain medicine If necessary, the urologist may [...] urine Fever Severe discomfort References: NIH: National [place] of Diabetes and Digestive and Kidney Diseases. Cystoscopy and Ureteroscopy Accessed 05/06/2017. Rolando Paul, Jonnathan D, Buzz H, Bismark CHEUNG. The History of Cystoscopy in Urology, Internet Journal of Urology. 14,1 (2015) [employer].Itaro Accessed 05/06/2017. [employer]. What is Cystoscopy? Accessed 05/06/2017. Copyright 8957-6812 [facility]. All rights reserved. documented in this encounter [facility] 07-04-2024 Note HNO ID: [id number] Author: ORI LORD DO Service: ? Author Type: Physician Type: Progress Notes Filed: 07/04/2024 11:16 Note Text: [facility] ESTABLISHED PATIENT NOTE/HISTORY AND PHYSICAL PATIENT: Dom Avila (68 year old) PCP: Clifton Hung MD DATE OF SERVICE: 07/04/2024 SUBJECTIVE: CHIEF COMPLAINT: Patient is here for 6 week f/u. Patient has no new concerns. Patient is scheduled to see an Manager Integrated on 07/11/24. 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 (HCC) (01/09/2017), Garibay's cyst of knee, left (03/02/2018), Breast neoplasm, Tis (DCIS), 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), CAD (coronary artery disease), Cataract, Colon polyp (2011), Controlled type 2 diabetes mellitus without complication, without long-term current use of insulin ([facility]) (10/22/2016), De Quervain's tenosynovitis, left (07/31/2019), Diabetic eye exam ([facility]) (01/16/2016), Ductal carcinoma in situ [...] includes the following prescription(s): doxycycline, coenzyme q10, abrbkc-yzvixuik-knckjmk, lisinopril, fluconazole, estradiol, tamoxifen, pioglitazone, omeprazole, calcium [...] smoking use include (more content not included)... [facility] 07-04-2024 History of Present illness Narrative Images from the original note were not included. [facility] ESTABLISHED PATIENT NOTE/HISTORY AND PHYSICAL PATIENT: Dom Avila (68 year old) PCP: Clifton Hung MD DATE OF SERVICE: 07/04/2024 SUBJECTIVE: CHIEF COMPLAINT: Patient is here for 6 week f/u. Patient has no new concerns. Patient is scheduled to see an Manager Integrated on 07/11/24. 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 (HCC) (01/09/2017), Garibay's cyst of knee, left (03/02/2018), Breast neoplasm, Tis (DCIS), 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), CAD (coronary artery disease), Cataract, Colon polyp (2011), Controlled type 2 diabetes mellitus without complication, without long-term current use of insulin ([facility]) (10/22/2016), De Quervain's tenosynovitis, left (07/31/2019), Diabetic eye exam ([facility]) (01/16/2016), Ductal carcinoma in situ [...] includes the following prescription(s): doxycycline, coenzyme q10, wnfdkc-qchtrrlj-ofzvrst, lisinopril, fluconazole, estradiol, tamoxifen, pioglitazone, omeprazole, calcium [...] -Patient will call the clinic or use [facility] should anything change or any new issues arise -All questions were answered Ori Lord DO Staff Urologist Medical Decision Making: Problems: Moderate: 2+ stable chronic illnesses Data: Unique test result(s) reviewed: 3+ Medical Decision Making Level: 4 - Moderate documented in this encounter [facility] 06-26-2024 Note HNO ID: [id number] Author: LATRICE DUNN LPN Service: ? Author Type: LICENSED NURSE Type: Progress Notes Filed: 06/26/2024 07:18 Note Text: Scan on 06/25/2024 10:26 AM by Deyvi Yadav PA-C: CT Scan [facility] 06-26-2024 History of Present illness Narrative Scan on 06/25/2024 10:26 AM by Provider, External, PA-C: CT Scan documented in this encounter [facility] 06-19-2024 Note HNO ID: [id number] Author: SHAKEEL YANG MA Service: ? Author Type: Hearth Feeder Type: Progress Notes Filed: 06/19/2024 15:17 Note Text: Scan on 06/19/2024 10:34 AM by ProviderDeyvi PA-C: Chemistry Scan on 06/19/2024 10:37 AM by Deyvi Yadav PA-C: Consultation - Emergency Medicine Scan on 06/19/2024 11:44 AM by Deyvi Yadav PA-C: EGD Scan on 06/19/2024 11:46 AM by Deyvi Yadav PA-C: Colonoscopy Shakeel Yang MA [facility] 06-19-2024 History of Present illness Narrative Scan on 06/19/2024 10:34 AM by Deyvi Yadav PA-C: Chemistry Scan on 06/19/2024 10:37 AM by Deyvi Yadav PA-C: Consultation - Emergency Medicine Scan on 06/19/2024 11:44 AM by Dyevi Yadav PA-C: EGD Scan on 06/19/2024 11:46 AM by Deyvi Yadav PA-C: Colonoscopy Shakeel Yang MA documented in this encounter [facility] 06-19-2024 Note [facility] Medical Records Department [address] [place] [id number] History Physical Exam 06/19/24 1030 MR#: [id number] Acct: [id number] Name: DOM AVILA Rep #: [id number] : 1955 68 From: Carson Alcantar DO PCP: Dr. Clifton Hung MD Status:[facility] Location: [place] [address] History and Physical Date of Admission: 06/19/24 [...] Fecal Fat, Qualitati (more content not included)... [facility] 06-15-2024 Note HNO ID: [id number] Author: LATRICE DUNN LPN Service: ? Author Type: LICENSED NURSE Type: Progress Notes Filed: 06/15/2024 09:45 Note Text: Scan on 06/15/2024 8:15 AM by Deyvi Yadav PA-C: Microbiology [facility] 06-15-2024 History of Present illness Narrative Scan on 06/15/2024 8:15 AM by Deyvi Yadav PA-C: Microbiology documented in this encounter [facility] 06-14-2024 Note HNO ID: [id number] Author: LATRICE DUNN LPN Service: ? Author Type: LICENSED NURSE Type: Progress Notes Filed: 06/14/2024 06:48 Note Text: Scan on 06/14/2024 1:35 AM by Deyvi Yadav PA-C: Miscellaneous Lab [facility] 06-14-2024 History of Present illness Narrative Scan on 06/14/2024 1:35 AM by Deyvi Yadav PA-C: Miscellaneous Lab documented in this encounter [facility] 06-09-2024 Note HNO ID: [id number] Author: SHAKEEL YANG MA Service: ? Author Type: Hearth Feeder Type: Progress Notes Filed: 06/09/2024 14:54 Note Text: Scan on 06/08/2024 4:38 PM by Deyvi Yadav PA-C: Miscellaneous Lab Shakeel Yang MA [facility] 06-09-2024 History of Present illness Narrative Scan on 06/08/2024 4:38 PM by Deyvi Yadav PA-C: Miscellaneous Lab Shakeel Yang MA documented in this encounter [facility] 06-06-2024 Note HNO ID: [id number] Author: LATRICE DUNN LPN Service: ? Author Type: LICENSED NURSE Type: Progress Notes Filed: 06/06/2024 11:38 Note Text: Scan on 06/06/2024 9:40 AM by Deyvi Yadav PA-C: Microbiology [facility] 06-06-2024 History of Present illness Narrative Scan on 06/06/2024 9:40 AM by Deyvi Yadav PA-C: Microbiology documented in this encounter [facility] 06-06-2024 Note HNO ID: [id number] Author: LATRICE DUNN LPN Service: ? Author Type: LICENSED NURSE Type: Progress Notes Filed: 06/06/2024 06:57 Note Text: Scan on 06/05/2024 4:39 PM by Deyvi Yadav PA-C: Hematology [facility] 06-06-2024 History of Present illness Narrative Scan on 06/05/2024 4:39 PM by Deyvi Yadav PA-C: Hematology documented in this encounter [facility] 05-23-2024 Telephone encounter Note Please let [...] 3 to 4 hours Ori Lord DO [facility] Work Phone: 05-23-2024 Miscellaneous Notes Please [...] Ori Lord DO documented in this encounter [facility] 05-23-2024 Telephone encounter Note Consult to Endocrinology at [facility] faxed VIA sherif Madsen MA [facility] 05-23-2024 Miscellaneous Notes Consult to Endocrinology at [facility] faxed VIA sherif Madsen MA documented in this encounter [facility] 05-23-2024 Instructions Ori Landin DO - [...] s Wellness & Healthy Aging Program at [facility] says, it may be something called [...] also be used as lubricants and moisturizers. Gordon / Prognosis What can I expect if [...] provider. If weeks go by and the sxcl-cro-eosgvqk moisturizers you re using for dryness don t work, you should see your healthcare provider. Also, always see your healthcare provider for any symptoms that negatively impact your daily life. documented in this encounter [facility] 05-23-2024 Note HNO ID: [id number] Author: ORI LANDIN DO Service: ? 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 (HCC) (01/09/2017), Garibay's cyst of knee, left (03/02/2018), Breast neoplasm, Tis (DCIS), 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), CAD (coronary artery disease), Cataract, Colon polyp (2011), Controlled type 2 diabetes mellitus without complication, without long-term current use of insulin ([facility]) (10/22/2016), De Quervain's tenosynovitis, left (07/31/2019), Diabetic eye exam ([facility]) (01/16/2016), Ductal carcinoma in situ [...] includes the following prescription(s): doxycycline, coenzyme q10, jgusyr-fhhaohhl-svcrqav, lisinopril, fluconazole, estradiol, tamoxifen, pioglitazone, omeprazole, calcium [...] She reports saira (more content not included)... [facility] 05-23-2024 History of Present illness Narrative Images from the original note were not included. [facility] ESTABLISHED PATIENT NOTE/HISTORY AND PHYSICAL PATIENT: oDm Avila (68 year old) PCP: Clifton Hung [...] (04/08/2023), 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), Arthritis, 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 ([facility]) (01/09/2017), Garibay's cyst of knee, left (03/02/2018), Breast neoplasm, Tis (DCIS), 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), CAD (coronary artery disease), Cataract, Colon polyp (2011), Controlled type 2 diabetes mellitus without complication, without long-term current use of insulin ([facility]) (10/22/2016), De Quervain's tenosynovitis, left (07/31/2019), Diabetic eye exam ([facility]) (01/16/2016), Ductal carcinoma in situ [...] includes the following prescription(s): doxycycline, coenzyme q10, kzxzze-hayxibpc-qywfxrf, lisinopril, fluconazole, estradiol, tamoxifen, pioglitazone, omeprazole, calcium [...] the R tenderness Kegels not tested Medical ampoule sealer present for exam: Lachelle Lemons DATA: Clinic: [...] to 4 hours documented in this encounter [facility] 05-01-2024 History of Present illness Narrative Images from the original note were not included. This note was created using Inbox. Subjective Dom Avila is a 68 year [...] Julio Tavarez APRN.ELIZABETH documented in this encounter [facility] 04-25-2024 History of Present illness Narrative Scan on 04/21/2024 2:48 PM by Provider, KELLY Carnes: Consultation - Cardiology Shakeel Yang MA documented in this encounter [facility] 04-25-2024 Instructions Ori Ladnin DO - 04/25/2024 8:40 AM EDT Lower [...] and substances do you use, including prescriptions, cfgw-cyp-wfppslv drugs, supplements, nicotine, caffeine and alcohol? Your [...] or leaving your house. A note from [facility] Lower urinary tract symptoms (LUTS) include a wide variety of problems with urination. Examples include involuntarily leaking urine or having sudden and strong urges to pee. LUTS may be signs of a health problem, so it s important to talk to a healthcare provider. documented in this encounter [facility] 04-25-2024 Note HNO ID: [id number] Author: ORI LANDIN DO Service: ? 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), Colon polyp (2011), Controlled type 2 diabetes mellitus without complication, without long-term current use of insulin ([facility]) (10/22/2016), De Quervain's tenosynovitis, left [...] includes the following prescription(s): doxycycline, coenzyme q10, kafkrj-ciznjjza-nzwtyip, lisinopril, estradiol, tamoxifen, pioglitazone, omeprazole, calcium citrate-vitamin d3, ezetimibe, ammonium lactate, clobetasol propionate, acetaminophen, nitroglycerin sublingual, ketoconazole, magnesium sulfate, montelukast, metoprolol succinate er, lactobacillus acidophilus, fluconazole, amlodipine, metformin, potassium chloride sr, and CPAP. Allergies: -Patient is allergic to brilinta [ticagrelor], crestor [rosuvastatin], keflex [cephalexin], lipito (more content not included)... [facility] 04-25-2024 History of Present illness Narrative Images from the original note were not included. 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), Colon polyp (2011), Controlled type 2 diabetes mellitus without complication, without long-term current use of insulin ([facility]) (10/22/2016), De Quervain's tenosynovitis, left (07/31/2019), Diabetic eye exam ([facility]) (01/16/2016), Ductal carcinoma in situ [...] includes the following prescription(s): doxycycline, coenzyme q10, btzkeg-grioljvu-pduzjjk, lisinopril, estradiol, tamoxifen, pioglitazone, omeprazole, calcium citrate-vitamin [...] PVR 0 ml documented in this encounter [facility] 04-25-2024 Note HNO ID: [id number] Author: ?, ?, ? Service: ? Author Type: ? Type: Progress Notes Filed: 04/25/2024 09:28 Note Text: PVR 0 ml [facility] 04-20-2024 Telephone encounter Note Left message for patient to return call to office Ori Moody MA [facility] 04-20-2024 Miscellaneous Notes Left message for [...] negative for infection. documented in this encounter [facility] 04-20-2024 Telephone encounter Note I have placed referral to urology for her. [facility] 04-20-2024 Telephone encounter Note Patient informed [...] she should proceed with? Jennifer Szymanski MA [facility] 04-20-2024 Telephone encounter Note Urine culture negative for infection. [facility] 04-19-2024 Telephone encounter Note Patient called and notified that urine culture order placed. Patient is coming in to lab today. Sylwia Kirk RN [facility] 04-19-2024 Miscellaneous Notes Patient called and [...] couple of weeks. Patient has appointment with cafeteria monitor on Wednesday. Patient asking if labs reflect why she would not have any energy? Patient does not have joint pain or rash. Please review and advise, Sylwia Kirk RN documented in this encounter [facility] 04-18-2024 Telephone encounter Note Pt states she is willing to come in to give a urine sample Please place order for lab urine Ori Moody MA [facility] 04-18-2024 Telephone encounter Note Can you find out if patient can come in and give urine sample for urine culture to ensure it is not infection? [facility] 04-18-2024 Telephone encounter Note TC to patient who states she has had an increase in urinary frequency but she has also increased her water intake so does not think they are related. Patient denies pain or burning with urination. Agreeable to starting Vit D and will make sure to keep appointment with Cardio. MADDISON Kaur T [facility] 04-18-2024 Telephone encounter Note Please find out if patient is having any urinary symptoms as her urine was abnormal. Also her vitamin d is low and I would recommend adding a separate vitamin d 5,000 units daily. [facility] 04-18-2024 Telephone encounter Note Patient calls and states that today feels like she has no energy. Patient states that this has been off and on for the past couple of weeks. Patient has appointment with cafeteria monitor on Wednesday. Patient asking if labs reflect why she would not have any energy? Patient does not have joint pain or rash. Please review and advise, Sylwia Kirk RN [facility] 04-17-2024 Instructions Francine Madrid APRN.CNP - [...] review all the medicines you take, even fniv-xcv-gatoiqw medicines. As you get older, the way [...] certain medical conditions. 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 CABG Diabetes Father Diabetes Paternal Grandmother Diabetes Maternal Grandfather other (Lung cancer) Brother other (suicide) Son may of been depression Patient Allergies ALLERGIES Allergen Reactions Brilinta [Ticagrelo* Shortness of Breath Crestor [Rosuvastat* Myalgia Keflex [Cephalexin] Other: See Comments facial flushing Lipitor [Atorvastat* Other: See Comments myalgia Lovastatin Other: See Comments myalgia [place] [Hydrocodone-* Itching Current Medications Current Outpatient Medications [...] Take 2 tablets by mouth once daily. spcbik-nmqqtmny-rpabtdh (CREON) 12,000-38,000 -60,000 unit delayed release capsule [...] DOXYCYCLINE HYCLATE 100 MG TABLET Francine Madrid APRN.ADDRESSOGRAPH OPERATOR documented in this encounter [facility] 03-23-2024 Telephone encounter Note The following approved medication requests have been transmitted electronically. Requested Prescriptions Signed Prescriptions Disp Refills amoxicillin-clavulanate potassium (AUGMENTIN) 875-125 mg per tablet 20 tablet 0 Sig: Take 1 tablet by mouth two times a day for 10 days. Authorizing Provider: CLIFTON HUNG MD [facility] 03-23-2024 Miscellaneous Notes The following approved medication requests have been transmitted electronically. Requested Prescriptions Signed Prescriptions Disp Refills amoxicillin-clavulanate potassium (AUGMENTIN) 875-125 mg per tablet 20 tablet 0 Sig: Take 1 tablet by mouth two times a day for 10 days. Authorizing Provider: CLIFTON HUNG MD Nancy from [facility] calls and reports that pharmacy received order for cefadroxil. Patient reported to her that she is highly allergic to cephalexin which is in the same class as ordered medication. Pharmacy asking if provider wants to change medication? Please review and advise, Sylwia Kirk RN documented in this encounter [facility] 03-23-2024 Telephone encounter Note Nancy from [facility] calls and reports that pharmacy received order for cefadroxil. Patient reported to her that she is highly allergic to cephalexin which is in the same class as ordered medication. Pharmacy asking if provider wants to change medication? 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 CABG Diabetes Father Diabetes Paternal Grandmother Diabetes Maternal Grandfather other (Lung cancer) Brother other (suicide) Son may of been depression Patient Allergies ALLERGIES Allergen Reactions Brilinta [Ticagrelo* Shortness of Breath Crestor [Rosuvastat* Myalgia Keflex [Cephalexin] Other: See Comments facial flushing Lipitor [Atorvastat* Other: See Comments myalgia Lovastatin Other: See Comments myalgia [place] [Hydrocodone-* Itching Current Medications Current Outpatient Medications [...] Take 2 tablets by mouth once daily. rujyqi-yxmsaipd-hugqjlx (CREON) 12,000-38,000 -60,000 unit delayed release capsule [...] Clifton Hung MD documented in this encounter [facility] 03-15-2024 Telephone encounter Note Patient notified. Reviewed directions. Updated pharmacy to [facility]. Caro Hernandez RN [facility] 03-15-2024 Miscellaneous Notes Patient notified. Reviewed directions. Updated pharmacy to [facility]. Caro Hernandez RN Vaginal estrace cream to be prescribed - please verify pharmacy. Please notify patient and review use. Sima Dumont APRN.ELIZABETH Patient saw Oncology providers ok'd estrogen cream. Please advise. documented in this encounter [facility] 03-14-2024 Telephone encounter Note Vaginal estrace cream to be prescribed - please verify pharmacy. Please notify patient and review use. Sima Dumont APRN.ADDRESSOGRAPH OPERATOR [facility] 03-14-2024 Telephone encounter Note Patient saw Oncology providers ok'd estrogen cream. Please advise. [facility] 03-14-2024 History of Present illness Narrative Chief Complaint Patient presents with: Established Patient HPI: Dom Avila is a 68 year old female who presents here today for follow up DCIS. Per Dr. Georges previous note: H/o ibt-nredmvc-kjbbcauvx diabetes mellitus, hypertension, ASCAD, and TIA who [...] breast lumpectomy for DCIS on 04/08/2021 at [facility] Pathology (from [facility]) reveals - ductal carcinoma in situ...,size of DCIS - 1.0 x 0.4 cm...,architectural type - cribriform..., nuclear grade 1-2..., necrosis - present central (expansive comedo necrosis)..., biopsy cavity is 0.5 cm from closest anterior margin (which is skin)..., ER >95%, NM >95% Postoperative course is unremarkable with no [...] rashes/lesions Heme:denies bleeding, up to date on INVESTMENT COUNSELOR exam-next due next 2024 The ROS is [...] Rx sent. - Continue follow up with PCP/GI/Cards/INVESTMENT COUNSELOR. - Mammogram due March 2025. - Follow up in 6 months. - Pt. aware to call office with any questions/concerns. The patient indicates understanding of these issues and agrees with the plan. All documentation from previous visit of 08/27/23-Dr. Georges/myself was copied and pasted, documentation has been reviewed and edited as necessary for today's visit. Chad Mariee APRN.ELIZABETH documented in this encounter [facility] 03-09-2024 Note Formatting of this n ote might be different from the original. March 10, 2024 PID: [id number] Dom Avila [address] [place] [address] Dear Ms. Avila, We are pleased to [...] report will be kept on file at [facility] as part of your permanent medical record and are available for your continuing care. Thank you for allowing us to help in meeting your health care needs. Sincerely, Dr. Hwang Interpreting Radiologist [facility] (Normal over 40) [facility] 03-09-2024 Miscellaneous Notes March 10, 2024 PID: [id number] Dom Avila [address] [place] [address] Dear Ms. Avila, We are pleased to [...] report will be kept on file at [facility] as part of your permanent medical record and are available for your continuing care. Thank you for allowing us to help in meeting your health care needs. Sincerely, Dr. Hwang Interpreting Radiologist [facility] (Normal over 40) documented in this encounter [facility] 03-09-2024 History of Present illness Narrative [...] PATIENT PRESENTS WITH AN IMPLANTABLE OR ATTACHED BREWMASTER: No RADIOLOGY DEPARTMENT: Mammography PERIPHERAL IV DATA: Not applicable SIGNED BY: Brandon Snow March 09, 2024 8:46 AM documented in this encounter [facility] 02-29-2024 Note Addended by: CHERISE FRANCIS on: 02/29/2024 09:24 AM Modules accepted: Orders [facility] 02-29-2024 Miscellaneous Notes Addended by: CHERISE HYATT on: 02/29/2024 09:24 AM Modules accepted: Orders Pt has changed pharmacy to [facility] and needs new rx sent [...] Em Mahmood LPN. documented in this encounter [facility] 02-29-2024 Telephone encounter Note Pt has changed pharmacy to [facility] and needs new rx sent [...] Please advise. Thank you. Em Mahmood LPN. [facility] 02-15-2024 Miscellaneous Notes Patient has been [...] Delmer Valdes LPN. documented in this encounter [facility] 01-26-2024 Miscellaneous Notes Patient has been [...] Latrice Dunn LPN. documented in this encounter [facility] 01-23-2024 Miscellaneous Notes The following approved medication requests have been transmitted electronically. Requested Prescriptions Signed Prescriptions Disp Refills pioglitazone (ACTOS) 15 mg tablet 30 tablet 5 Sig: Take 1 tablet by mouth once daily. Clifton Hung MD documented in this encounter [facility] 01-18-2024 Instructions iSma Dumont APRN.ELIAZBETH - 01/18/2024 2:38 PM EDT Discuss with oncology use of vaginal estrogen cream for genitourinary syndrome of menopause. documented in this encounter [facility] 01-18-2024 History of Present illness Narrative Sanding Machine Tender offered: Patient declines. 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 CABG Diabetes Father Diabetes Paternal [...] Take 2 tablets by mouth once daily. rnfyqb-vjrzeuhb-qgbwugv (CREON) 12,000-38,000 -60,000 unit delayed release capsule [...] external genitalia normal, normal Bartholin's glands, urethra, [place]'s glands, no vulvar lesions, physiologic discharge present, [...] results. Follow- up as needed. Sima Dumont APRN.ADDRESSOGRAPH OPERATOR Medical Decision Making: Problems: Moderate: 1+ chronic illnesses with change and 2+ stable chronic illnesses Data: Unique test(s) ordered: 3+ Medical Decision Making Level: 4 - Moderate documented in this encounter [facility] 01-18-2024 Miscellaneous Notes Addressed in TE 01/17/24. Em Mahmood LPN documented in this encounter [facility] 01-18-2024 Miscellaneous Notes Called the lab [...] lab work for today at 3pm in [facility]. I will be there visiting Dr. [...] Em Mahmood LPN documented in this encounter [facility] 01-14-2024 History of Present illness Narrative Chief Complaint Patient presents with: Follow Up: Blood pressure HPI Dom Avila is a 68 year old female who presents here today for Above Complaints.. Patient presents for bp follow up. Patient reports home bp 120-130's. Patient was seen by Octaviano Humphries at [facility] who started patient on amlodipine. Past medical history, appointments, medications, allergies reviewed. 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 CABG Diabetes Father Diabetes Paternal Grandmother Diabetes Maternal Grandfather other (Lung cancer) Brother other (suicide) Son may of been depression Patient Allergies ALLERGIES Allergen Reactions Brilinta [Ticagrelo* Shortness of Breath Crestor [Rosuvastat* Myalgia Keflex [Cephalexin] Other: See Comments facial flushing Lipitor [Atorvastat* Other: See Comments myalgia Lovastatin Other: See Comments myalgia [place] [Hydrocodone-* Itching Current Medications Current Outpatient Medications on File Prior to Visit Medication Sig lisinopril (ZESTRIL) 30 mg tablet Take 1 tablet by mouth two times a day. Calcium Citrate-Vitamin D3 (CITRACAL+D) 315 mg-6.25 mcg (250 unit) tab Take 2 tablets by mouth once daily. vfgqfd-acwcwfiq-npvfecy (CREON) 12,000-38,000 -60,000 unit delayed release capsule [...] - Recommend regular aerobic exercise Francine Madrid APRN.ADDRESSOGRAPH OPERATOR documented in this encounter [facility] 01-10-2024 History of Present illness Narrative Scan on 01/07/2024 2:33 PM by Provider, KELLY Carnes: Consultation - Ophthalmology documented in this encounter [facility] 12-31-2023 Miscellaneous Notes Addended by: FRANCINE MADRID on: 12/31/2023 02:08 PM Modules accepted: Orders documented in this encounter [facility] 12-31-2023 History of Present illness Narrative Chief Complaint Patient presents with: Follow Up: Blood pressure HPI Dom Avila is a 68 year old female who presents here today for Above Complaints.. Patient presents for BP check was in [facility] ER 12/28 for elevated BP. 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 CABG Diabetes Father Diabetes Paternal Grandmother Diabetes Maternal Grandfather other (Lung cancer) Brother other (suicide) Son may of been depression Patient Allergies ALLERGIES Allergen Reactions Brilinta [Ticagrelo* Shortness of Breath Crestor [Rosuvastat* Myalgia Keflex [Cephalexin] Other: See Comments facial flushing Lipitor [Atorvastat* Other: See Comments myalgia Lovastatin Other: See Comments myalgia [place] [Hydrocodone-* Itching Current Medications Current Outpatient Medications on File Prior to Visit Medication Sig lisinopril (ZESTRIL) 30 mg tablet Take 1 tablet by mouth two times a day. Calcium Citrate-Vitamin D3 (CITRACAL+D) 315 mg-6.25 mcg (250 unit) tab Take 2 tablets by mouth once daily. geagyq-daeagput-wagrxlk (CREON) 12,000-38,000 -60,000 unit delayed release capsule [...] - HYDROCHLOROTHIAZIDE 12.5 MG CAPSULE Francine Madrid APRN.ADDRESSOGRAPH OPERATOR documented in this encounter [facility] 12-28-2023 History of Present illness Narrative Scan on 12/28/2023 3:13 AM by Provider, Deyvi, KELLY: Consultation - Emergency Medicine documented in this encounter [facility] 12-22-2023 Discharge summary Note Date/Time December 22, 2023 2:00pm [facility] Medical Records Department [address] [place] [address] Emergency Department Summary 12/22/23 MR#: [id number] Acct: [id number] Name: DOM AVILA Rep #:[id number] : 1955 68 From: Caro Pedro MD [...] mild diarrhea but no nausea or vomiting. [facility] Medical History Anxiety Arthritis Atherosclerotic heart disease of kaibab coronary artery without angina pectoris Breast cancer, [...] PO DAILY 11/30/22 [History Last Taken Unknown] hsjbte-mlpuhihc-lylqzkz 36,000-114,000-180,000 unit capsule,delay rel (Creon) See Rx [...] History Mother Cancer pancreatic cancer Father , [place] age 20's (premature CAD), 3 vessel CABG, [...] your Primary Care Provider. Call [facility] ([phone]) or report to the closest Emergency Room. Call 911 if necessary. 12/22/23 1898 <Electronically signed by Caro Pedro MD> Cosigner Signature (if applicable): CC: Dr. 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 CABG Diabetes Father Diabetes Paternal Grandmother Diabetes Maternal Grandfather other (Lung cancer) Brother other (suicide) Son may of been depression Patient Allergies ALLERGIES Allergen Reactions Brilinta [Ticagrelo* Shortness of Breath Crestor [Rosuvastat* Myalgia Keflex [Cephalexin] Other: See Comments facial flushing Lipitor [Atorvastat* Other: See Comments myalgia Lovastatin Other: See Comments myalgia [place] [Hydrocodone-* Itching Current Medications Current Outpatient Medications on File Prior to Visit Medication Sig Calcium Citrate-Vitamin D3 (CITRACAL+D) 315 mg-6.25 mcg (250 unit) tab Take 2 tablets by mouth oncedaily. wdreof-vxbljppx-yxntyap (CREON) 12,000-38,000 -60,000 unit delayed release capsule [...] 327.23, ICD10: G47.33 -Wears CPAP Francine Madrid APRN.ADDRESSOGRAPH OPERATOR documented in this encounterMer[facility]11-08-2023 History of Present illness Narrative* Latrice Dunn LPN - 09/15/2023 8:30 AM EST Scan on 09/14/2023 5:34 PM by Provider, External, PAJosephC: Consultation - Ophthalmology documented in this encounterMercy Health [facility] Hospital10-24-2023 History of Present illness Narrative* Natalie Presley Ma - 08/31/2023 11:37 AM EDT Cardiology OV. Scan on 08/30/2023 2:05 PM by Provider, KELLY Carnes: Consultation - Cardiology documented in this encounterMercy Health [facility] Hospital09-25-2023 History of Present illness Narrative* Latrice Dunn LPN - 08/02/2023 7:08 AM EDT Scan on 07/30/2023 6:04 PM by Provider, KELLY Carnes: Consultation - Ophthalmology documented in this encounterMercy Health [facility] Hospital09-15-2023 Instructions* Patient Instructions* Sima Dumont APRN.ADDRESSOGRAPH OPERATOR - 07/23/2023 11:44 AM EDT Silicone [...] avoid scratching at night. documented in this encounterMercy Health West Hospital09-15-2023 History of Present illness Narrative* Sima Dumont APRN.ELIZABETH - 07/23/2023 10:58 AM EDT Sanding Machine Tender offered: Patient declines. 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 CABG Diabetes Father Diabetes Paternal [...] tab Take 2 tablets by mouth oncedaily. uehdca-cztdozlw-nczxjzv (CREON) 12,000-38,000 -60,000 unit delayed release capsule [...] external genitalia normal, normal Bartholin's glands, urethra, [place]'s glands, no vulvar lesions, small amount thick [...] Level: 4 - Moderate documented in this encounterMercy Health West Hospital08-08-2023 History of Present illness Narrative* Latrice Dunn LPN - 06/15/2023 10:08 AM EDT Scan on 06/14/2023 2:02 PM by ProviderDeyvi PA-C: Consultation - Ophthalmology documented in this encounterMercy Health West Hospital07-31-2023 History of Present illness Narrative* Shakeel Yang MA - 06/07/2023 3:57 PM EDT Scan on 06/07/2023 8:43 AM by Deyvi Yadav PA-C: Consultation - Ophthalmology HM oscar. Shakeel Yang MA documented in this encounterMercy Health West Hospital06-02-2023 History of Present illness Narrative* Latrice Dunn LPN - 04/09/2023 11:47 AM EDT Scan on 04/08/2023 4:51 PM by External Provider, KELLY: Consultation - Ophthalmology documented in this encounterMercy Health [facility] Hospital06-02-2023 Miscellaneous Notes* Telephone Encounter - Natalie Presley Ma - 04/09/2023 8:56 AM EDT See update from pt. Natalie Presley Ma documented in this encounterMercy Health West Hospital06-01-2023 Instructions* Patient Instructions* Clifton Hung MD - 04/08/2023 2:04 PM EDT Please get labs done on or after 09/24/2023 prior to your next visit. documented in this encounterMercy Health West Hospital06-01-2023 History of Present illness Narrative* Clifton Hung MD - 04/08/2023 12:53 PM EDT Images from the original note were not included. 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 Colon polyp 2011 Controlled type 2 diabetes mellitus without complication, without long-term current use of insulin ([facility]) 10/22/2016 De Quervain's tenosynovitis, left 07/31/2019 Diabetic eye exam ([facility]) 01/16/2016 Lat done: 12/03/2017 No [...] Date 2D ECHO (EXEP) 06/30/2017 EF=65%, trivial IN, TI and 1+ PI Unchanged from 04/2017 2D ECHO (EXEP) 05/14/2021 EF=60%, 1+ TI, trival IN, AI, PI 2D ECHO (EXEP) 09/16/2021 EF=60%, [...] [Rosuvastatin], Keflex [Cephalexin], Lipitor [Atorvastatin], Lovastatin, and [place] [Hydrocodone-Acetaminophen] Medications reviewed: Yes FAMILY HISTORY Problem Relation Age of Onset other (Pancreatic cancer) Mother Coronary Artery Disease Father 25 [place] @ 25. 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 CABG Diabetes Father Diabetes Paternal Grandmother Diabetes Maternal Grandfather other (Lung cancer) Brother other (suicide) Son may of been depression Patient Allergies ALLERGIES Allergen Reactions Brilinta [Ticagrelo* Shortness of Breath Crestor [Rosuvastat* Myalgia Keflex [Cephalexin] Other: See Comments facial flushing Lipitor [Atorvastat* Other: See Comments myalgia Lovastatin Other: See Comments myalgia [place] [Hydrocodone-* Itching Current Medications Current Outpatient Medications [...] Lymph 1.00 - 4.00 k/uL 1.43 1.36 Mccreary% % 9.4 8.0 Abs Mccreary <0.87 k/uL 0.45 0.40 Eosin% % 1.3 [...] Negative Ketones, Urine Trace, Negative Negative Specific [place], Ur 1.005 - 1.030 1.017 Hemoglobin/Blood,Ur Negative, [...] diet and regular exercise 6. 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) - [...] which included preparing to see the patient, qojr-lq-ikwp patient care, completing clinical documentation, performing a medically appropriate examination, counseling and educating the patient/family/caregiver and ordering medications, tests, or procedures. Clifton Hung MD documented in this encounterMercy Health West Hospital04-21-2023 History of Present illness Narrative* Chad Mariee, POWER LINEWORKER.ADDRESSOGRAPH OPERATOR - 02/26/2023 9:51 AM EDT Chief Complaint Patient presents with: Established Patient HPI: Dom Avila is a 67 year old female who presents here today for follow up DCIS. Per Dr. Georges previous note: H/o mtv-svdtjhc-ahmazyqqs diabetes mellitus, hypertension, ASCAD, and TIA who [...] situ Estrogen progesterone receptors positive ( >95%); HER-2/branidn negative (0) left breast lumpectomy for DCIS on 04/08/2021 at [facility] Pathology (from [facility]) reveals - ductal carcinoma in situ...,size of DCIS - 1.0 x 0.4 cm...,architectural type - cribriform..., nuclear grade 1-2..., necrosis - present central (expansive comedo necrosis)..., biopsy cavity is 0.5 cm from closest anterior margin (which is skin)..., ER >95%, NM >95% Postoperative course is unremarkable with no [...] rashes/lesions Heme:denies bleeding, up to date on INVESTMENT COUNSELOR 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 Chad Mariee APRN.CNP documented in this encounterMercy Health [facility] Hospital04-19-2023 History of Present illness Narrative* Nesha [...] 24, 2023 9:16 AM documented in this encounterMercy Health West Hospital04-17-2023 History of Present illness Narrative* Latrice Dunn LPN - 02/22/2023 1:07 PM EDT Scan on 02/22/2023 12:59 PM by External Provider: Consultation - Neurology documented in this encounterMercy Health West Hospital04-14-2023 History of Present illness Narrative* Latrice Dunn LPN - 02/19/2023 7:32 AM EDT Scan on 02/18/2023 12:54 PM by External Provider: Consultation - Cardiology documented in this encounterMercy Health West Hospital04-04-2023 History of Present illness Narrative* Cherise Sifuentes PA-C - 02/09/2023 7:31 AM EDT Chief Complaint Patient presents with: Cough: congestion HPI Dom Avila is a 67 year old female who presents here today for Above Complaints.. Patient has had URI symptoms since 01/31/23. Was seen in [facility] care on 02/05. 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 CABG Diabetes Father Diabetes Paternal Grandmother Diabetes Maternal Grandfather other (Lung cancer) Brother other (suicide) Son may of been depression Patient Allergies ALLERGIES Allergen Reactions Brilinta [Ticagrelo* Shortness of Breath Crestor [Rosuvastat* Myalgia Keflex [Cephalexin] Other: See Comments facial flushing Lipitor [Atorvastat* Other: See Comments myalgia Lovastatin Other: See Comments myalgia [place] [Hydrocodone-* Itching Current Medications Current Outpatient Medications [...] prn. Cherise Sifuentes PA-C documented in this encounterMercy Health [facility] Hospital04-03-2023 Miscellaneous Notes* Telephone Encounter - Monique [...] patient. Monique Dailey LPN documented in this encounterMercy Health West Hospital03-31-2023 History of Present illness Narrative* Lori Barriga APRN.ADDRESSOGRAPH OPERATOR - 02/05/2023 9:43 AM EDT Subjective The history is provided by the patient. No miter grinder operator was used. HPI Domgabbie Avila is a 67 year old female who presents today for CC of cough and congestion, this started in past 5 days. Congestion is more in chest. She was exposed to covid at [facility], but beingday 5 and improving declines testing. 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 Lori Barriga APRN.ELIZABETH documented in this encounterMercy Health West Hospital03-31-2023 Instructions* Patient Instructions* Lori Barriga APRN.CNP [...] with PCP for re-evaluation. documented in this encounterMercy Health West Hospital02-09-2023 Miscellaneous Notes* Telephone Encounter - Monique [...] cancer. Please advise patient. documented in this encounterMercy Health West Hospital02-03-2023 Miscellaneous Notes* Telephone Encounter - Clifton Hung MD - 12/11/2022 8:37 PM EST Noted. documented in this encounterMercy Health West Hospital02-03-2023 Miscellaneous Notes* Telephone Encounter - Laura Ayala LPN - 12/11/2022 10:12 AM EST Please see pt's China-8t message,pt stated that Flagyl was not sent to her pharmacy. See pended order below and advise. Laura Ayala LPN documented in this encounterMercy Health West Hospital02-01-2023 Instructions* Patient Instructions* Sima Dumont APRN.ADDRESSOGRAPH OPERATOR - 12/09/2022 7:25 AM EST Continue [...] avoid scratching at night. documented in this encounterMercy Health West Hospital02-01-2023 History of Present illness Narrative* Sima Dumont APRN.CNP - 12/09/2022 7:01 AM EST Sanding Machine Tender offered: Patient declines. Dom Avila is a 67 year old female who presents for onset of vaginal discharge, burning and mild itching 2 week ago. Treated with Monistat 7. Now has vaginal discharge only. Treated for COVID with Paxlovid around [place] and read that yeast infection is a [...] external genitalia normal, normal Bartholin's glands, urethra, [place]'s glands, no vulvar lesions, cervix surgically absent, [...] which included preparing to see the patient, cexf-hw-sehj patient care, completing clinical documentation, obtaining and/or reviewing separately obtained history, performing a medically appropriate examination, counseling and educating the pat ient/family/caregiver, and ordering medications, tests, or procedures. documented in this encounterMercy Health West Hospital01-24-2023 Procedure [facility]01-24-2023 Procedure [facility]01-24-2023 Procedure [facility]01-24-2023 Procedure [facility]01-24-2023 History and physical note Author Carson Alcantar [facility] December 01, 2022 11:50am Note Date/Time December 01, 2022 1 1:50am [facility] Medical Records Department [address] [place] [id number] History & Physical Exam 12/01/22 1148 MR#: [id number] Acct: [id number] Name: DOM AVILA Rep #:[id number] : 1955 67 From: Carson Alcantar DO PCP: Dr. Clifton Hung MD Status:[facility] Location: [place] [address] History and Physical Date of Admission: 12/01/22 [...] prn, rarely takes NSAIDs. 09/03/22 labs at [facility]: CBC unremarkable, hgb 13.5, plts 252, amylase 74, lipase 133 high, normal hepatic function panel 09/15/22 CT chest/abd/pelvis at [facility]: subcentimeter hypodense too small to characterize left hepatic lesion Has upcoming CT at [facility] to f/u the liver lesion 09/09/22 RUQ US at [facility]: fatty liver PMH includes DM2, SEBAS, narcolepsy, [...] Mood: euthymic mood Quality Reporting Tobacco Screening ([facility] 138) Smoking Status: Former smoker Assessment [...] Clifton Hung MD; Carson Alcantar DO~ Signed [facility] Work Phone: [phone]) 321-293401-18-2023 Miscellaneous Notes* Telephone Encounter - Suki Ambrocio LPN - 11/25/2022 12:12 PM EST Patient notified. Suki Ambrocio LPN * Telephone Encounter - Chad Mariee APRN.ELIZABETH - 11/25/2022 12:07 PM EST Please inform pt. that her CT is stable. No new findings. Follow up as scheduled. Thank you. 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 CABG Diabetes Father Diabetes Paternal [...] Patient agreeable to treatment plan. Shaneka Yang APRN.ADDRESSOGRAPH OPERATOR documented in this encounterMercy Health West Hospital01-04-2023 Instructions* Patient Instructions* Matthew Joaquin - [...] (or decreased sensation in your feet) a public service administrator should always cut your toenails. Be Careful [...] Go to your health care provider or public service administrator to treat these conditions. 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 CABG Diabetes Father Diabetes Paternal [...] Objective: Patient presents to clinic ambulating in [facility] Constitutional: Pt is a well developed [...] toenail to [place]. documented in this encounterMercy Health West Hospital12-27-2022 Instructions* Patient Instructions* Cherise Sifuentes PA-C - 11/03/2022 2:23 PM EST FACT SHEET FOR PATIENTS, PARENTS, AND CAREGIVERS EMERGENCY USE AUTHORIZATION (EUA) OF PAXLOVID FOR CORONAVIRUS DISEASE 2019 (COVID-19) You are being given this Fact Sheet because your healthcare provider believes it is necessary to provide you with PAXLOVID for the treatment of fiwo-ws-fnnwindg coronavirus disease (COVID-19) caused by the SARS-CoV-2 [...] virus. COVID-19 illnesses have ranged from very phij-nu-apfjrn, including illness resulting in . While information [...] is an investigational medicine used to treat hifw-dr-mtzelopt COVID-19 in adults and children [12 years [...] of using PAXLOVID to treat people with dwxi-sp-pnslalsf COVID-19. The FDA has authorized the emergency use of PAXLOVID for the treatment of mknq-di-kxjlaccq COVID-19in adults and children [12 years of [...] the medicines you take, including prescription and gael-eww-cbzgopu medicines, vitamins, and herbal supplements. Some medicines [...] (remdesivir) is FDA-approved for the treatment of tkek-cf-ftzruqle COVID-19 in certain adults and children. Talk with your doctor to see if Veklury is appropriate for you. Like PAXLOVID, FDA may also allow for the emergency use of other medicines to treat people with COVID-19. Go to https://www.fda.gov/gihinqmwv-kojjtheipxlv-jeydurczmrt/wqu-efvhn-dubhtdtvki-and- policy-framework/nutvpydqd-itk-qhndkxzpqfigx for information on the emergency use of [...] if I am or ? There is dental laboratory technology teacher treating women or mothers with PAXLOVID. For [...] not go away. Report side effects to [employer] at www.fda.gov/medOne Source Networkstch or call 5-952-KBE9521 or you can reportside effects to [employer]. at the contact information provided below. Website Fax number Telephone number www.[employer] How should I store PAXLOVID? Store PAXLOVID [...] (EUA). The EUA is supported by a Brewmaster of Health and Human Service (HHS) declaration that circumstances exist to justify the emergency use of drugs and biological productsduring the COVID-19 pandemic. PAXLOVID for the treatment of yolv-zd-yczsxumu COVID-19 in adults and children [12 years [...] telephone number provided below. Website Telephone number wwwCenterstone TechnologiesAKWUP01cdbuBhCodeStreet (3-363-K55-IHGN) You can also go to www.[employer].Itaro or call for more information. Pfizer Distributed by [employer] [place] [address] [id number] Revised: 23 January 2022 documented in this encounterMercy Health West Hospital12-27-2022 Miscellaneous Notes* Telephone Encounter - Cherise Sifuentes PA-C - 11/03/2022 2:18 PM EST Called patient to discuss: Nirmatrelvir/Ritonavir (Paxlovid) Eligibility and Patient Discussion [facility] Formulary Restriction Criteria: Adult outpatients 18 [...] my chart message today. 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 CABG Diabetes Father Diabetes Paternal [...] plan. Shaneka Yang APRN.ELIZABETH documented in this encounterMercy Health West Hospital12-21-2022 Miscellaneous Notes* Telephone Encounter - Jill [...] you. 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 CABG Diabetes Father Diabetes Paternal Grandmother Diabetes Maternal Grandfather other (Lung cancer) Brother other (suicide) Son may of been depression Patient Allergies ALLERGIES Allergen Reactions Brilinta [Ticagrelo* Shortness of Breath Crestor [Rosuvastat* Myalgia Keflex [Cephalexin] Other: See Comments facial flushing Lipitor [Atorvastat* Other: See Comments myalgia Lovastatin Other: See Comments myalgia [place] [Hydrocodone-* Itching Current Medications Current Outpatient Medications [...] PNEUMOCOCCAL IMMUNIZATION PPSV 23 7. 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) - ICD9: 414.01, 413.9, ICD10: I25.118 Cont with cardio 8. Ductal carcinoma in situ (DCIS) of left breast - ICD9: 233.0, ICD10: D05.12 Cont with oncology 9. History of hyperparathyroidism - ICD9: V12.29, ICD10: Z86.39 Follow up in 6 months for wellness labs prior.. Cherise Sifuentes PA-C documented in this encounterMercy Health West Hospital11-11-2022 Miscellaneous Notes* Telephone Encounter - Seema [...] reduced fat in diet. documented in this encounterMercy Health West Hospital11-09-2022 Miscellaneous Notes* Telephone Encounter - JASMYNE Kaur - 09/16/2022 4:07 PM EST Pt notifying provider that she has seen testing results for CT. Please advise. Thank you. JASMYNE Kaur documented in this encounterMercy Health West Hospital11-09-2022 Miscellaneous Notes* Telephone Encounter - Sylwia Hedrick - 09/16/2022 3:26 PM EST Spoke with patient and scheduled CT. Sylwia Hedrick * Telephone Encounter - Suki Ambrocio LPN - 09/16/2022 2:54 PM EST Patient is aware of all information and verbalized understanding. Patient will contact [facility] to schedule. PSS- CT abd/pelvis show a subcentimeter hypodense too small to characterize left hepatic lesion. Will plan to repeat CT in 10-12 weeks. Patient is aware of this information. Please contact patient to schedule CT. She is expecting the call. Suki Ambrocio LPN * Telephone Encounter - Brittni Villar Pss - 09/16/2022 2:16 PM EST Please have patient call the [facility] at [phone] to schedule dx mammogram when relaying information below. Thank you. * Telephone Encounter - Chad Mariee APRN.ADDRESSOGRAPH OPERATOR - 09/16/2022 9:15 AM EST Please inform pt. that her CT chest shows no acute changes. Radiologist is recommending a L dx mammogram/US to further evaluate ? soft tissue nodular opacity. Please schedule L dx mamm/US soon. CT abd/pelvis show a subcentimeter hypodense too small to characterize left hepatic lesion. Will plan to repeat CT in 10-12 weeks. Thank you. Chad Mariee APRN.ADDRESSOGRAPH OPERATOR documented in this encounterMer[facility]11-02-2022 Miscellaneous Notes* Telephone Encounter - Latrice Dunn LPN - 09/09/2022 2:28 PM EDT Pt was notified of results via phone. See TE 09/09/22. Latrice Dunn LPN documented in this encounterMer[facility] Hospital11-02-2022 Miscellaneous Notes* Telephone Encounter - Latrice [...] start. Cherise Sifuentes PA-C documented in this encounterMercy Health West Hospital11-02-2022 History of Present illness Narrative* Echo [...] 09, 2022 8:26 AM documented in this encounterMercy Health [facility] Hospital11-01-2022 History of Present illness Narrative* Jocelyne Sands LPN - 09/08/2022 9:11 AM EDT Patient presented for H. Pylori Breath testing per Dr Hung. Obtained baseline sample at 9:05am. Patient then drank Pranactin-Citric solution. Waited full 15 minutes and obtained second sample at 9:22am. Patient tolerated testing well with no problems. LOT # [id number] EXP 09/07/2024 Jocelyne Sands LPN documented in this encounterMercy Health [facility] Hospital10-31-2022 Miscellaneous Notes* Telephone Encounter - Shakeel Yang MA - 09/07/2022 3:08 PM EDT Patient contacted and scheduled. Given instructions voiced understanding. Shakeel Yang MA documented in this encounterMercy Health [facility] Hospital10-27-2022 History of Present illness Narrative* Clifton [...] melena or hematochezia. Sometimes the stool is trench pipe layer in color. No longer has a gal bladder. No recent fevers. Has a CT of the abdomen and pelvis set up for 09/15/2022. Mother with Hx of pancreatic cancer. Past medical history, appointments, medications, allergies reviewed. 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 CABG Diabetes Father Diabetes Paternal Grandmother Diabetes Maternal Grandfather other (Lung cancer) Brother other (suicide) Son may of been depression Patient Allergies ALLERGIES Allergen Reactions Brilinta [Ticagrelo* Shortness of Breath Crestor [Rosuvastat* Myalgia Keflex [Cephalexin] Other: See Comments facial flushing Lipitor [Atorvastat* Other: See Comments myalgia Lovastatin Other: See Comments myalgia [place] [Hydrocodone-* Itching Current Medications Current Outpatient Medications [...] 65+ Clifton Hung MD documented in this encounterMercy Health [facility] Hospital10-21-2022 Miscellaneous Notes* Telephone Encounter - Shakeel [...] up. Shakeel Yang MA documented in this encounterMercy Health West Hospital10-21-2022 Instructions* Patient Instructions* Sima Dumont APRN.CNP - 08/28/2022 10:40 AM EDT Silicone based lubricant such as Astroglide. Look for one that is hypoallergenic. Continue Revaree. Continue using Aquaphor and minimize use of incontinence pads to protect the skin. documented in this encounterMercy Health West Hospital10-21-2022 History of Present illness Narrative* Sima Dumont, ELINA - 08/28/2022 10:22 AM EDT Sanding Machine Tender offered: Patient declines. 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 CABG Diabetes Father Diabetes Paternal [...] which included preparing to see the patient, [id number] patient care, completing clinical documentation, obtaining and/or reviewing separately obtained history, performing a medically appropriate examination, and counseling and educating the patient/family/caregiver. documented in this encounterMercy Health West Hospital10-21-2022 History of Present illness Narrative* Chad Mariee APRN.CNP - 08/28/2022 8:25 AM EDT Chief Complaint Patient presents with: Established Patient: 6 MO FOLLOW UP HPI: Dom Avila is a 67 year old female who presents here today for follow up breast cancer. Per Dr. Georges previous note: H/o [id number] diabetes mellitus, hypertension, ASCAD, and TIA who [...] breast lumpectomy for DCIS on 04/08/2021 at [facility] Pathology (from [facility]) reveals - ductal carcinoma in situ...,size of DCIS - 1.0 x 0.4 cm...,architectural type - cribriform..., nuclear grade 1-2..., necrosis - present central (expansive comedo necrosis)..., biopsy cavity is 0.5 cm from closest anterior margin (which is skin)..., ER >95%, NM >95% Postoperative course is unremarkable with no [...] visit. Chad Mariee APRN.ELIZABETH documented in this encounterMercy Health West Hospital09-07-2022 Miscellaneous Notes* Telephone Encounter - Daniel [...] advise. Daniel Hill Pss documented in this encounterMercy Health West Hospital09-01-2022 Instructions* Patient Instructions* Sima Dumont APRN.CNP [...] agents from your environment. documented in this encounterMercy Health West Hospital09-01-2022 History of Present illness Narrative* Sima Dumont APRN.CNP - 07/09/2022 7:49 AM EDT Sanding Machine Tender offered: Patient declines. 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 CABG Diabetes Father Diabetes Paternal [...] external genitalia normal, normal Bartholin's glands, urethra, [place]'s glands, no vulvar lesions, physiologic discharge present, [...] Level: 4 - Moderate documented in this encounterMercy Health [facility] Hospital08-31-2022 Miscellaneous Notes* Telephone Encounter - Clifton Hung MD - 07/08/2022 1:27 PM EDT Info noted. documented in this encounterMercy Health West Hospital08-26-2022 Miscellaneous Notes* Telephone Encounter - Clifton Hung MD - 07/03/2022 8:06 AM EDT The following approved medication requests have been transmitted electronically. Requested Prescriptions Signed Prescriptions Disp Refills fluconazole (DIFLUCAN) 150 mg tablet 3 tablet 1 Si tab by mouth every other day for 3 doses Clifton Hung MD documented in this encounterMercy Health West Hospital08-23-2022 History of Present illness Narrative* Martha Montoya PA-C - 06/30/2022 3:14 PM EDT This note was created using BubbleGabter. 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 CABG Diabetes Father Diabetes Paternal [...] DETECT Martha Montoya PA-C documented in this encounterMercy Health [facility] Hospital08-09-2022 Miscellaneous Notes* Telephone Encounter - Latrice Dunn LPN - 06/16/2022 12:27 PM EDT Please see pt's message. Latrice Dunn LPN documented in this encounterMercy Health West Hospital04-20-2022 History of Present illness Narrative* Chad Mariee APRN.ELIZABETH - 02/25/2022 10:00 AM EDT Chief Complaint Patient presents with: Established Patient: SCP HPI: Dom Avila is a 66 year old female who presents here today for SCP/DCIS. Per Dr. Georges previous note: H/o [id number] diabetes mellitus, hypertension, ASCAD, and TIA who [...] breast lumpectomy for DCIS on 04/08/2021 at [facility] Pathology (from [facility]) reveals - ductal carcinoma in situ...,size of DCIS - 1.0 x 0.4 cm...,architectural type - cribriform..., nuclear grade 1-2..., necrosis - present central (expansive comedo necrosis)..., biopsy cavity is 0.5 cm from closest anterior margin (which is skin)..., ER >95%, NM >95% Postoperative course is unremarkable with no [...] visit. Chad Mariee APRN.ELIZABETH documented in this encounterMercy Health West Hospital04-18-2022 Miscellaneous Notes* Letter - Mammography Coordinator - 02/23/2022 11:35 AM EDT February 23, 2022 PID: [id number] Dom Avila [address] [place] [address] Dear Ms. Avila, We are pleased to [...] report will [facility] part of [facility] permanent medical record and are available for your continuing care. Thank you for allowing us to help in meeting your health care needs. Sincerely, Dr. Benedict Interpreting Radiologist [facility] (Normal over 40) documented in this encounterMercy Health West Hospital04-18-2022 History of Present illness Narrative* RT [...] 23, 2022 10:17 AM documented in this encounterMercy Health West Hospital04-05-2022 Miscellaneous Notes* Telephone Encounter - Kassandra Mitchell Ma - 02/10/2022 1:25 PM EDT Last office visit: 09/26/21 F/u scheduled: 04/03/22 Kassandra Mitchell Ma documented in this encounterMercy Health West Hospital02-01-2017 Evaluation note* Diagnosis Onset Date Resolution Status Essential hypertension chron ic Palpitations chronic Presence of stent in coronary artery December, [facility] Work Phone: [phone]) 706-540802-01-2017 Evaluation note* Diagnosis Onset Date Resolution Status Essential hypertension chron ic Palpitations chronic Presence of stent in coronary artery December, chronic Diarrhea chronic Elevated lipase chronic [facility] Work Phone: Evaluation note* Diagnosis Breast neoplasm, Tis (DCIS), left Encounter for screening mammogram for malignant neoplasm of breast Other screening mammogram [facility]* Diagnosis Breast neoplasm, Tis (DCIS), left- Primary documented in this encounter [facility] note* Diagnosis Onset Date Resolution Status Atherosclerotic heart diseas e of kaibab coronary artery without angina pectoris chronic Essential hypertension chron ic Mixed hyperlipidemia chronic Palpitations chronic Presence of stent in coronary artery December, chronic [facility] Work Phone: Evaluation note* Diagnosis Nasal lesion- Primary Other diseases of nasal cavity and sinuses [facility]* Diagnosis Vagina itching- Primary Pruritus of genital organs Dysuria Urinary frequency Superficial dyspareunia Mixed incontinence Mixed incontinence urge and stress (male)(female) Vaginal atrophy Postmenopausal atrophic vaginitis Cystocele, midline Long-term current use of tamoxifen [facility]* Diagnosis Vaginal atrophy- Primary Postmenopausal atrophic vaginitis Vulvar dermatitis Other inflammatory disease of cervix, vagina and vulva [facility]* Diagnosis Breast neoplasm, Tis (DCIS), left- Primary Encounter for screening mammogram for high-risk patient Nausea Nausea alone Pain of upper abdomen Abdominal pain, other specified site documented in this encounter [facility] note* Diagnosis Epigastric pain- Primary Abdominal pain, epigastric Nausea Nausea alone Need for vaccination Need for prophylactic vaccination and inoculation against unspecified single disease [facility]* Diagnosis Epigastric pain Abdominal pain, epigastric [facility]* Diagnosis Abnormal CT of the abdomen- Primary Nonspecific (abnormal) findings on radiological and other examination of abdominal area, including retroperitoneum Liver lesion Other specified disorders of liver Ductal carcinoma in situ (DCIS) of left breast Abnormal CT of the chest Nonspecific (abnormal) findings on radiological and other examination of other intrathoracic organs [facility]* Diagnosis Controlled type 2 diabetes mellitus without complication, without long-term current use of insulin (HCC)- Primary Essential hypertension Unspecified essential hypertension Mixed hyperlipidemia Vitamin D deficiency Unspecified vitamin D deficiency Upper back pain Need for vaccination Need for prophylactic vaccination and inoculation against unspecified single disease 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) Ductal carcinoma in situ (DCIS) of left breast History of hyperparathyroidism Personal history of other endocrine, metabolic, and immunity disorders documented [facility]* Diagnosis URI, acute- Primary Acute upper respiratory infections of unspecified site [facility]* Diagnosis Other diabetic neurological complication associated with type 2 diabetes mellitus (HCC)- Primary Ingrowing toenail Ingrowing nail documented [facility]* Diagnosis Sore throat- Primary Acute pharyngitis Acute cough [facility]* Diagnosis Onset Date Resolution Status Atherosclerotic heart diseas e of kaibab coronary artery without angina pectoris chronic Essential hypertension chron ic Mixed hyperlipidemia chronic Nausea chronic Palpitations chronic Presence of stent in coronary artery December, chronic Epigastric pain chronic Fatty liver chronic IBS (irritable bowel syndrome) chronic [facility] Work Phone: Evaluation note* Diagnosis Vaginal discharge- Primary Leukorrhea, not specified as infective documented [facility]* Diagnosis Bacterial vaginosis- Primary Vaginitis and vulvovaginitis, unspecified [facility]* Diagnosis URI with cough and congestion- Primary [facility]* Diagnosis Onset Date Resolution Status Fatty liver chronic Diarrhea acute [facility] Work Phone: Evaluation note* Diagnosis Bacterial sinusitis- Primary Unspecified sinusitis (chronic) documented [facility] this [facility]* Diagnosis RLS (restless legs syndrome) Restless legs syndrome (RLS) documented [facility] this [facility]* Diagnosis 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 Encounter for screening mammogram for high-risk patient documented [facility] this encounter [facility]* Diagnosis Encounter for Medicare annual wellness exam- Primary Routine general medical examination at a health care facility Controlled type 2 diabetes mellitus without complication, without long-term current use of insulin (HCC) Diabetic eye exam ([facility]) Type II or unspecified type diabetes mellitus without mention of complication, not stated as uncontrolled Essential hypertension Unspecified essential hypertension Mixed hyperlipidemia 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) History [...] Other specified counseling documented [facility] encounter [facility]* Diagnosis Onset Date Resolution Status Atherosclerotic heart diseas e of kaibab coronary artery without angina pectoris chronic Essential hypertension chron ic Palpitations chronic Diarrhea chronic Elevated lipase chronic [facility] Work Phone: Evaluation note* Diagnosis Dysuria- Primary Urine frequency Urinary frequency Vaginal discharge Leukorrhea, not specified as infective Vulvovaginal discomfort Unspecified symptom associated with female genital organs documented [facility] encounter [facility]* Diagnosis Abnormal CT of the abdomen Nonspecific (abnormal) findings on radiological and other examination of abdominal area, including retroperitoneum Liver lesion Other specified disorders of liver Ductal carcinoma in situ (DCIS) of left breast documented [facility]* Diagnosis Epigastric pain Abdominal pain, epigastric [facility] Breast neoplasm, Tis (DCIS), left Encounter for screening mammogram for high-risk patient [facility]* Diagnosis Ductal carcinoma in situ (DCIS) of left breast Abnormal CT of the chest Nonspecific (abnormal) findings on radiological and other examination of other intrathoracic organs [facility]* Diagnosis Essential hypertension- Primary Unspecified essential hypertension Controlled type 2 diabetes mellitus without complication, without long-term current use of insulin (HCC) Mixed hyperlipidemia 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 RLS (restless legs syndrome) Restless legs syndrome (RLS) Obstructive sleep apnea on CPAP Obstructive sleep apnea (adult) (pediatric) documented [facility] this encounter [facility]* Diagnosis Vaginal yeast infection- Primary Candidiasis of vulva and vagina Essential hypertension Unspecified essential hypertension [facility] Diagnosis Onset Date Resolution Status Diarrhea chronic Elevated lipase chronic [facility]* Diagnosis Diabetic eye exam (HCC) Type II or unspecified type diabetes mellitus without mention of complication, not stated as uncontrolled documented in this encounter [facility] note* Diagnosis Essential hypertension- Primary Unspecified essential hypertension documented in this encounter [facility] note* Diagnosis Hyperglycemia- Primary Other abnormal glucose Pancreatic insufficiency Other specified disease of pancreas documented in this encounter [facility] note* Diagnosis Dysuria- Primary Urinary frequency Vaginal discharge Leukorrhea, not specified as infective Genitourinary syndrome of menopause documented in this encounter [facility] note* Diagnosis Essential hypertension Unspecified essential hypertension documented in this encounter [facility] note* Diagnosis Ductal carcinoma in situ (DCIS) of left breast Encounter for screening mammogram for high-risk patient [facility]* Diagnosis 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 [facility]* Diagnosis Genitourinary syndrome of menopause- Primary [facility]* Diagnosis Pharyngitis, unspecified etiology- Primary Respiratory illness Bacterial sinusitis Unspecified sinusitis (chronic) [facility]* Diagnosis Abnormal urinalysis- Primary Other nonspecific finding on examination of urine [facility]* Diagnosis Urinary frequency- Primary [facility]* Diagnosis Lower urinary tract symptoms (LUTS)- Primary Other symptoms involving urinary system Urinary incontinence, mixed Mixed incontinence urge and stress (male)(female) Microscopic hematuria History of UTI Personal history of urinary (tract) infection Abnormal findings on diagnostic imaging of urinary organs Nonspecific (abnormal) findings on radiological and other examination of genitourinary organs documented in this encounter [facility] note* Diagnosis Burn, foot, second degree, left, initial encounter- Primary [facility]* Diagnosis Urinary incontinence, mixed- Primary Mixed incontinence urge and stress (male)(female) Genitourinary syndrome of menopause Microscopic hematuria Adenoma of right adrenal gland [facility]* Diagnosis Controlled type 2 diabetes mellitus without complication, without long-term current use of insulin (HCC)- Primary Essential hypertension Unspecified essential hypertension Mixed hyperlipidemia Meniere disease, right 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) Obstructive [...] cystic kidney disease [facility]* Diagnosis Controlled type 2 diabetes mellitus without complication, without long-term current use of insulin (HCC)- Primary Essential hypertension Unspecified essential hypertension Mixed hyperlipidemia Meniere disease, right 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) Obstructive sleep apnea on CPAP Obstructive sleep apnea (adult) (pediatric) Amaurosis fugax Transient arterial occlusion of retina Seasonal allergic rhinitis, unspecified chronicity, unspecified trigger Vitamin D deficiency Unspecified vitamin D deficiency Adenoma of right adrenal gland- Primary Disorder of adrenal gland (HCC) Unspecified disorder of adrenal glands documented [facility]* Diagnosis Essential hypertension- Primary Unspecified [...] type 2 diabetes mellitus (HCC) 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) documented [facility]* Diagnosis Controlled type 2 diabetes mellitus without complication, without long-term current use of insulin (HCC)- Primary Essential hypertension Unspecified essential hypertension Mixed hyperlipidemia Meniere disease, right 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) Obstructive [...] right adrenal gland [facility] Diagnosis Controlled type 2 diabetes mellitus without complication, without long-term current use of insulin (HCC)- Primary Essential hypertension Unspecified essential hypertension Mixed hyperlipidemia Meniere disease, right 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) Obstructive sleep apnea on CPAP Obstructive sleep apnea (adult) (pediatric) Amaurosis fugax Transient arterial occlusion of retina Seasonal allergic rhinitis, unspecified chronicity, unspecified trigger Vitamin D deficiency Unspecified vitamin D deficiency 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) Unspecified disorder of adrenal glands documented in this [facility]* Diagnosis Controlled type 2 diabetes mellitus without complication, without long-term current use of insulin (HCC)- Primary Essential hypertension Unspecified essential hypertension Mixed hyperlipidemia Meniere disease, right 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) Obstructive sleep apnea on CPAP Obstructive sleep apnea (adult) (pediatric) Amaurosis fugax Transient arterial occlusion of retina Seasonal allergic rhinitis, unspecified chronicity, unspecified trigger Vitamin D deficiency Unspecified vitamin D deficiency 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 Encounter for screening mammogram for high-risk patient [facility] Diagnosis Controlled type 2 diabetes mellitus without complication, without long-term current use of insulin (HCC)- Primary Essential hypertension Unspecified essential hypertension Mixed hyperlipidemia Meniere disease, right 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) Obstructive sleep apnea on CPAP Obstructive sleep apnea (adult) (pediatric) Amaurosis fugax Transient arterial occlusion of retina Seasonal allergic rhinitis, unspecified chronicity, unspecified trigger Vitamin D deficiency Unspecified vitamin D deficiency Adenoma of right adrenal gland- Primary [facility]* Diagnosis Controlled type 2 diabetes mellitus without complication, without long-term current use of insulin (HCC)- Primary Essential hypertension Unspecified essential hypertension Mixed hyperlipidemia Meniere disease, right 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) Obstructive [...] deficiency Mixed hyperlipidemia [facility] Diagnosis Controlled type 2 diabetes mellitus without complication, without long-term current use of insulin (HCC)- Primary Essential hypertension Unspecified essential hypertension Mixed hyperlipidemia Meniere disease, right 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) Obstructive sleep apnea on CPAP Obstructive sleep apnea (adult) (pediatric) Amaurosis fugax Transient arterial occlusion of retina Seasonal allergic rhinitis, unspecified chronicity, unspecified trigger Vitamin D deficiency Unspecified vitamin D deficiency Type 2 diabetes mellitus with hyperlipidemia (HCC) (HCC)- Primary Controlled type 2 diabetes mellitus without complication, without long-term current use of insulin ([facility]) Diabetic eye exam ([facility]) Type II or unspecified type diabetes mellitus without mention of complication, not stated as uncontrolled Essential hypertension Unspecified essential hypertension Mixed hyperlipidemia 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) 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 Vitamin D deficiency Unspecified vitamin D deficiency Right lateral epicondylitis Lateral epicondylitis of elbow Medication management Encounter for long-term (current) use of other medications Gastroesophageal reflux disease without esophagitis Esophageal reflux documented in this [facility] Diagnosis Controlled type 2 diabetes mellitus without complication, without long-term current use of insulin (HCC)- Primary Essential hypertension Unspecified essential hypertension Mixed hyperlipidemia Meniere disease, right 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) Obstructive sleep apnea on CPAP Obstructive sleep apnea (adult) (pediatric) Amaurosis fugax Transient arterial occlusion of retina Seasonal allergic rhinitis, unspecified chronicity, unspecified trigger Vitamin D deficiency Unspecified vitamin D deficiency Adenoma of right adrenal gland- Primary documented [facility] Diagnosis Controlled type 2 diabetes mellitus without complication, without long-term current use of insulin (HCC)- Primary Essential hypertension Unspecified essential hypertension Mixed hyperlipidemia Meniere disease, right 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) Obstructive sleep apnea on CPAP Obstructive sleep apnea (adult) (pediatric) Amaurosis fugax Transient arterial occlusion of retina Seasonal allergic rhinitis, unspecified chronicity, unspecified trigger Vitamin D deficiency Unspecified vitamin D deficiency Acute cough- Primary Essential hypertension Unspecified essential hypertension [facility] Diagnosis Controlled type 2 diabetes mellitus without complication, without long-term current use of insulin (HCC)- Primary Essential hypertension Unspecified essential hypertension Mixed hyperlipidemia Meniere disease, right 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) Obstructive sleep apnea on CPAP Obstructive sleep apnea (adult) (pediatric) Amaurosis fugax Transient arterial occlusion of retina Seasonal allergic rhinitis, unspecified chronicity, unspecified trigger Vitamin D deficiency Unspecified vitamin D deficiency COVID-19- Primary [facility] Diagnosis Controlled type 2 diabetes mellitus without complication, without long-term current use of insulin (HCC)- Primary Essential hypertension Unspecified essential hypertension Mixed hyperlipidemia Meniere disease, right 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 Obstructive sleep apnea on CPAP Obstructive sleep apnea (adult) (pediatric) Amaurosis fugax Transient arterial occlusion of retina Seasonal allergic rhinitis, unspecified chronicity, unspecified trigger Vitamin D deficiency Unspecified vitamin D deficiency Adenoma of right adrenal gland- Primary Disorder of adrenal gland (HCC) Unspecified disorder of adrenal glands [facility] Diagnosis Controlled type 2 diabetes mellitus without complication, without long-term current use of insulin (HCC)- Primary Essential hypertension Unspecified essential hypertension Mixed hyperlipidemia Meniere disease, right 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 Obstructive sleep [...] cystic kidney disease [facility] Diagnosis Controlled type 2 diabetes mellitus without complication, without long-term current use of insulin (HCC)- Primary Essential hypertension Unspecified essential hypertension Mixed hyperlipidemia Meniere disease, right 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 Obstructive sleep apnea on CPAP Obstructive sleep apnea (adult) (pediatric) Amaurosis fugax Transient arterial occlusion of retina Seasonal allergic rhinitis, unspecified chronicity, unspecified trigger Vitamin D deficiency Unspecified vitamin D deficiency Ductal carcinoma in situ (DCIS) of left breast Encounter for screening mammogram for high-risk patient documented in this encounter [facility] note* Diagnosis Controlled type 2 diabetes mellitus without complication, without long-term current use of insulin (HCC)- Primary Essential hypertension Unspecified essential hypertension Mixed hyperlipidemia Meniere disease, right 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 Obstructive sleep apnea on CPAP Obstructive sleep apnea (adult) (pediatric) Amaurosis fugax Transient arterial occlusion of retina Seasonal allergic rhinitis, unspecified chronicity, unspecified trigger Vitamin D deficiency Unspecified vitamin D deficiency Cold intolerance- Primary Other general symptoms Disorder of adrenal gland (HCC) Unspecified disorder of adrenal glands documented in this encounter [facility] note* Diagnosis Controlled type 2 diabetes mellitus without complication, without long-term current use of insulin (HCC)- Primary Essential hypertension Unspecified essential hypertension Mixed hyperlipidemia Meniere disease, right 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 Obstructive sleep apnea on CPAP Obstructive sleep apnea (adult) (pediatric) Amaurosis fugax Transient arterial occlusion of retina Seasonal allergic rhinitis, unspecified chronicity, unspecified trigger Vitamin D deficiency Unspecified vitamin D deficiency 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 Encounter for screening mammogram for high-risk patient documented in this encounter [facility] note* Diagnosis Controlled type 2 diabetes mellitus without complication, without long-term current use of insulin ([facility])- Primary Essential hypertension Unspecified essential hypertension Mixed hyperlipidemia Meniere disease, right 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 Obstructive sleep [...] Asymptomatic postmenopausal status documented in this encounter [facility] note* Diagnosis Controlled type 2 diabetes mellitus without complication, without long-term current use of insulin (HCC)- Primary Essential hypertension Unspecified essential hypertension Mixed hyperlipidemia Meniere disease, right 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 Obstructive sleep apnea on CPAP Obstructive sleep apnea (adult) (pediatric) Amaurosis fugax Transient arterial occlusion of retina Seasonal allergic rhinitis, unspecified chronicity, unspecified trigger Vitamin D deficiency Unspecified vitamin D deficiency Encounter for Medicare annual wellness exam- Primary Routine general medical examination at a [facility] Advance directive discussed with patient Other specified counseling Controlled type 2 diabetes mellitus without complication, without long-term current use of insulin (HCC) Type 2 diabetes mellitus with hyperlipidemia (HCC) Essential hypertension Unspecified essential hypertension Mixed hyperlipidemia Statin intolerance Other drug allergy 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) RLS (restless legs syndrome) Restless legs syndrome (RLS) 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 Pancreatic insufficiency (HCC) Other specified disease of pancreas Vitamin D deficiency Unspecified vitamin D deficiency Hypomagnesemia Disorders of magnesium metabolism History of hyperparathyroidism Personal history of other endocrine, metabolic, and immunity disorders Living will on file at physician's office Encounter for screening examination for other mental health and behavioral disorders Screening for depression documented in this encounter [facility] note* Diagnosis Controlled type 2 diabetes mellitus without complication, without long-term current use of insulin (HCC)- Primary Essential hypertension Unspecified essential hypertension Mixed hyperlipidemia Meniere disease, right 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 Obstructive sleep apnea on CPAP Obstructive sleep apnea (adult) (pediatric) Amaurosis fugax Transient arterial occlusion of retina Seasonal allergic rhinitis, unspecified chronicity, unspecified trigger Vitamin D deficiency Unspecified vitamin D deficiency Urinary frequency- Primary Urinary tract infection with hematuria, site unspecified [facility] Additional Instructions This evening [...] [facility] the [facility]: Reason for referral (narrative)* Diagnostic Procedure Only (Routine) - Closed Specialty Diagnoses / Procedures Referred By Jared t Referred To Contact [facility] Diagnoses Breast neoplasm, Tis (DCIS), left Encounter for screening mammogram for malignant neoplasm of breast Procedures GUILLERMINA SCREENING SCREENING MAMMOGRAPHY BI 2-VIEW BREAST INC Alberto Mehta MD [address] [place] [address] [facility] [address] [place] [address] Referral ID Status Reason Start Date Expiration Date V isits Requested Visits Authorized [id number] Closed Auto-Generate d Referral 02/23/2022 07/30/2022 1 1 [facility] for referral (narrative)* Diagnostic Procedure Only (Routine) - Authorized Specialty Diagnoses / Procedures Referred By Jared hernández Referred To Contact [facility] Diagnoses Ductal carcinoma in situ (DCIS) of left breast Abnormal CT of the chest Procedures US BREAST LTD LT US BREAST UNI REAL TIME WITH IMAGE LIMITED Chad Mariee APRN.ADDRESSOGRAPH OPERATOR [address] [place] [address] [facility] [address] [place] [address] Referral ID Status Reason Start Date Expiration Date Visits Requested Visits Authorized [id number] Authorized Auto-Generat ed Referral 09/16/2022 10/16/2023 1 1 * Diagnostic Procedure Only (Routine) - Authorized Specialty Diagnoses / Procedures Referred By Jared hernández Referred To Contact [facility] Diagnoses Ductal carcinoma in situ (DCIS) of left breast Abnormal CT of the chest Procedures GUILLERMINA DIAGNOSTIC LT DIAGNOSTIC MAMMOGRAPHY COMPUTER-AIDED DETCJ UNI Chad Mariee APRN.ADDRESSOGRAPH OPERATOR [address] [place] [address] [facility] [address] [place] [address] Referral ID Status Reason Start Date Expiration Date Visits Requested Visits Authorized [id number] Authorized Auto-Generat ed Referral 09/16/2022 10/16/2023 1 1 * MRI/CT (Routine) - Pending Review Specialty Diagnoses / Procedures Referred By Jared hernández Referred To Contact CT IMAGING Diagnoses Abnormal CT of the abdomen Liver 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 Procedures CT ABD/PEL W IVCON CT ABD & PELVIS W/CONTRAST Chad Mariee APRN.ADDRESSOGRAPH OPERATOR [address] [place] [address] Ct Imaging Referral ID Status Reason Start Date Expiration Date Visits Requested Visits Authorized [id number] Pending Review Auto-Generat ed Referral 09/16/2022 10/16/2023 1 1 [facility] for referral (narrative)* Diagnostic Procedure Only (Routine) - Pending Review Specialty Diagnoses / Procedures Referred By Jared hernández Referred To Contact [facility] Diagnoses Ductal carcinoma in situ (DCIS) of left breast Encounter for screening mammogram for high-risk patient Procedures GUILLERMINA SCREENING W ANGELA SCREENING DIGITAL BREAST TOMOSYNTHESIS BI SCREENING MAMMOGRAPHY BI 2-VIEW BREAST INC CAD Chad Mariee APRN.ADDRESSOGRAPH OPERATOR [address] [place] [address] [facility] [address] [place] [address] Referral ID Status Reason Start Date Expiration Date Visits Requested Visits Authorized [id number] Pending Review Auto-Generat ed Referral 02/26/2023 03/27/2024 1 1 [facility] for referral (narrative)* Diagnostic Procedure Only (Routine) - Closed Specialty Diagnoses / Procedures Referred By Jared hernández Referred To Contact CT IMAGING Diagnoses Abnormal CT of the abdomen Liver 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 Procedures CT ABD/PEL W IVCON CT ABD & PELVIS W/CONTRAST Chad Mariee APRN.ADDRESSOGRAPH OPERATOR [address] [place] [address] [place] [address] Referral ID Status Reason Start Date Expiration Date V isits Requested Visits Authorized [id number] Closed Auto-Generate d Referral 11/25/2022 12/25/2022 2 2 [facility] for referral (narrative)* Diagnostic Procedure Only (Routine) - Closed Specialty Diagnoses / Procedures Referred By Contac t Referred To Contact [facility] IMAGING Diagnoses Epigastric pain Procedures US ABD RT UPPER QUADRANT US ABDOMINAL REAL TIME W/IMAGE LIMITED Clifton Hung MD [address] [place] [address] [place] [address] Referral ID Status Reason Start Date Expiration Date V isits Requested Visits Authorized [id number] Closed Auto-Generate d Referral 09/03/2022 10/03/2023 1 1 [facility] for referral (narrative)* Diagnostic Procedure Only (Routine) - Closed Specialty Diagnoses / Procedures Referred By Contac t Referred To Contact [facility] Diagnoses Breast neoplasm, Tis (DCIS), left Encounter for screening mammogram for high-risk patient Procedures GUILLERMINA SCREENING SCREENING MAMMOGRAPHY BI 2-VIEW BREAST INC CAD Chad Mariee APRN.CNP [address] [place] [address] [facility] [address] [facility] [place] [address] Referral ID Status Reason Start Date Expiration Date V isits Requested Visits Authorized [id number] Closed Auto-Generate d Referral 08/28/2022 09/27/2023 1 1 [facility] for referral (narrative)* Diagnostic Procedure Only (Routine) - Closed Specialty Diagnoses / Procedures Referred By Contac t Referred To Contact [facility] Diagnoses Ductal carcinoma in situ (DCIS) of left breast Encounter for screening mammogram for high-risk patient Procedures GUILLERMINA SCREENING W ANGELA SCREENING DIGITAL BREAST TOMOSYNTHESIS BI SCREENING MAMMOGRAPHY BI 2-VIEW BREAST INC CAD [facility], POWER LINEWORKER.ADDRESSOGRAPH OPERATOR [address] [place] [address] [facility] [address] [place] [address] Referral ID Status Reason Start Date Expiration Date V isits Requested Visits Authorized [id number] Closed Auto-Generate d Referral 02/26/2023 03/27/2024 1 1 [facility] for referral (narrative)* Diagnostic Procedure Only (Routine) - Authorized Specialty Diagnoses / Procedures Referred By Jared hernández Referred To Contact [facility] Diagnoses Ductal carcinoma in situ (DCIS) of left breast Encounter for screening mammogram for high-risk patient Procedures GUILLERMINA SCREENING W ANGELA SCREENING DIGITAL BREAST TOMOSYNTHESIS BI SCREENING MAMMOGRAPHY BI 2-VIEW BREAST INC [facility], POWER LINEWORKER.ADDRESSOGRAPH OPERATOR [address] [place] [address] [facility] Imaging [address] [address] Referral ID Status Reason Start Date Expiration Date Visits Requested Visits Authorized [id number] Authorized Auto-Generat ed Referral 03/14/2025 10/14/2025 1 1 [facility] for visit Narrative* Diagnostic Procedure Only (Routine) - Closed Specialty Diagnoses / Procedures Referred By Jared hernández Referred To Contact [facility] Diagnoses Breast neoplasm, Tis (DCIS), left Encounter for screening mammogram for malignant neoplasm of breast Procedures GUILLERMINA SCREENING SCREENING MAMMOGRAPHY BI 2-VIEW BREAST INC Alberto Mehta MD [address] [place] [address] [facility] [address] [place] [address] Referral ID Status Reason Start Date Expiration Date V isits Requested Visits Authorized [id number] Closed Auto-Generate d Referral 02/23/2022 07/30/2022 1 1 [facility] for visit Narrative* Diagnostic Procedure Only (Routine) - Closed Specialty Diagnoses / Procedures Referred By Jared t Referred To Contact [facility] Diagnoses Breast neoplasm, Tis (DCIS), left Encounter for screening mammogram for high-risk patient Procedures GUILLERMINA SCREENING SCREENING MAMMOGRAPHY BI 2-VIEW BREAST INC CAD Chad Mariee, TERRA.ADDRESSOGRAPH OPERATOR [address] [place] [address] [facility] [address] [place] [address] Referral ID Status Reason Start Date Expiration Date V isits Requested Visits Authorized [id number] Closed Auto-Generate d Referral 08/28/2022 09/27/2023 1 1 [facility] for visit Narrative* Diagnostic Procedure Only (Routine) - Closed Specialty Diagnoses / Procedures Referred By Jared hernández Referred To Contact CT IMAGING Diagnoses Abnormal CT of the abdomen Liver 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 Procedures CT ABD/PEL W IVCON CT ABD & PELVIS W/CONTRAST Chad Mariee APRN.ADDRESSOGRAPH OPERATOR [address] [place] [address] Ct Imaging [facility] Referral ID Status Reason Start Date Expiration Date V isits Requested Visits Authorized [id number] Closed Auto-Generate d Referral 11/25/2022 12/25/2022 2 2 [facility] for visit Narrative* Diagnostic Procedure Only (Routine) - Closed Specialty Diagnoses / Procedures Referred By Jared t Referred To Contact [facility] Diagnoses Ductal carcinoma in situ (DCIS) of left breast Abnormal CT of the chest Procedures GUILLERMINA DIAGNOSTIC LT DIAGNOSTIC MAMMOGRAPHY COMPUTER-AIDED DETCJ UNI Chad Mariee, TERRA.ADDRESSOGRAPH OPERATOR [address] [place] [address] [facility] [address] [place] [address] Referral ID Status Reason Start Date Expiration Date V isits Requested Visits Authorized [id number] Closed Auto-Generate d Referral 09/16/2022 10/16/2023 1 1 [facility] for visit Narrative* Diagnostic Procedure Only (Routine) - Closed Specialty Diagnoses / Procedures [facility] Diagnoses Ductal carcinoma in situ (DCIS) of left breast Encounter for screening mammogram for high-risk patient Procedures GUILLERMINA SCREENING W ANGELA SCREENING DIGITAL BREAST TOMOSYNTHESIS BI SCREENING MAMMOGRAPHY BI 2-VIEW BREAST INC [facility] [place], POWER LINEWORKER.ADDRESSOGRAPH OPERATOR [address] [place] [address] Br Imaging [address] [place] [address] Referral ID Status Reason Start Date Expiration Date V isits Requested Visits Authorized [id number] Closed Auto-Generate d Referral 02/26/2023 03/27/2024 1 1 [facility] Diagnostic Procedure Only (Routine) - Closed Specialty Diagnoses / Procedures Referred By Contac t Referred To Contact [facility] Diagnoses Ductal carcinoma in situ (DCIS) of left breast Encounter for screening mammogram for high-risk patient Procedures GUILLERMINA SCREENING W ANGELA SCREENING DIGITAL BREAST TOMOSYNTHESIS BI SCREENING MAMMOGRAPHY BI 2-VIEW BREAST INC [facility], POWER LINEWORKER.ADDRESSOGRAPH OPERATOR [address] [place] [address] Phone: tel: fax: [facility] [address] [place] [address] Referral ID Status Reason Start Date Expiration Date V isits Requested Visits Authorized [id number] Closed Auto-Generate d Referral 03/14/2025 10/14/2025 1 1 [facility] Advance Directives No Advanced Directives Records FoundDocuments on File Type Date Recorded Patient Ecommerce Marketing Specialist Expl anation Advance Directive(s) 06/24/2021 1:42 PM Advance Directive(s) 08/09/2018 8:15 AM Documents on File Type Date Recorded Patient Ecommerce Marketing Specialist Expl anation Advance Directive(s) 06/24/2021 1:42 PM Advance Directive(s) 08/09/2018 8:15 AM Advance Directive Response Recorded Date/ Time Advance Directives Yes October 12, 2018 8:15am Living Will No May 05, 2021 10:00am Power of Abnormal Psychology Teacher No May 05 10:00am Documents on File Type Date Recorded Patient Ecommerce Marketing Specialist Expl anation Advance Directive(s) 04/07/2022 12:26 PM Documents on File Type Date Recorded Patient Ecommerce Marketing Specialist Expl anation Advance Directive(s) 04/07/2022 12:26 PM Advance Directive Response Recorded Date/ Time Advance Directives Yes October 12, 2018 7:15am Living Will Yes November 30 12:39pm Power of Abnormal Psychology Teacher Yes November 30, 2022 12:39pm Advance Directive Response Recorded Date/ Time Name of Medical Power of Abnormal Psychology Teacher SPOUSE November 30, 2022 12:39pm Advance Directives Yes October 12, 2018 7:15am Living Will Yes November 30 12:39pm Power of Abnormal Psychology Teacher Yes November 30, 2022 12:39pm Advance Directive Response Recorded Date/ Time Name of Medical Power of Abnormal Psychology Teacher SPOUSE November 30, 2022 1:39pm Advance Directives Yes October 12, 2018 8:15am Living Will Yes November 30 1:39pm Power of Abnormal Psychology Teacher Yes November 30, 2022 1:39pm Advance Directive Response Recorded Date/ Time Advance Directives Yes October 12, 2018 8:15am Living Will Yes November 30 1:39pm Power of Abnormal Psychology Teacher Yes November 30, 2022 1:39pm Advance Directive Response Recorded Date/ Time Name of Medical Power of Abnormal Psychology Teacher recalled September 11, 2023 2:34pm Advance Directives Yes October 12, 2018 7:15am Living Will Yes September 11 2:34pm Power of Abnormal Psychology Teacher Yes September 11, 2023 2:34pm Advance Directive Response Recorded Date/ Time Name of Medical Power of Abnormal Psychology Teacher recalled September 11, 2023 2:34pm Name of Medical Power of Abnormal Psychology Teacher Carmella December 22, 2023 1:32pm Advance Directives Yes October 12, 2018 7:15am Living Will Yes December 22 024 1:32pm Power of Abnormal Psychology Teacher Yes December 22, 2023 1:32pm Advance Directive Response Recorded Date/ Time Name of Medical Power of Abnormal Psychology Teacher recalled September 11, 2023 2:34pm Name of Medical Power of Abnormal Psychology Teacher Carmella December 22, 2023 1:32pm Name of Medical Power of Abnormal Psychology Teacher carmella s/o December 28, 2023 12:43am Advance Directives Yes October 12, 2018 7:15am Living Will Yes December 28, 024 12:43am Power of Abnormal Psychology Teacher Yes December 28, 2023 12:43am Chief Complaint and Reason for Visit Chief Complaint 6 m fu E-ORDER Reason for Visit Atherosclerotic hear t disease of [place] coronary artery without angina pectoris Essential hypertension Mixed hyperlipidemia Palpitations Presence of stent in coronary artery Chief Complaint 6 m fu E-ORDER HOLTER PALPS SOB.PVC,CAD HX SOB.PVC,CAD HX Reason for Visit Atherosclerotic hear t disease of [place] coronary artery without angina pectoris Essential hypertension Mixed hyperlipidemia Palpitations Presence of stent in coronary artery Chief Complaint 3 M FU Consult E ORDERS E ORDERS Reason for Visit Atherosclerotic hear t disease of [place] coronary artery without angina pectoris Essential hypertension [...] for Visit Atherosclerotic hear t disease of [place] coronary artery without angina pectoris Essential hypertension [...] W IVCON DIAGNOSTIC COMPUTED TOMOGRAPHY THORAX W/CONTRAST Cahd Mariee, POWER LINEWORKER.ADDRESSOGRAPH OPERATOR [address] [place] [address] Ct Imaging Referral ID Status Reason Start Date Expiration Date Visits Requested Visits Authorized [id number] Pending Review Auto-Generat ed Referral 2 09/27/2023 1 1 Specialty Diagnoses / Procedures Referred By Contac t Referred To Contact CT IMAGING Diagnoses Breast neoplasm, Tis (DCIS), left Nausea Pain of upper abdomen Procedures CT ABD/PEL W IVCON CT ABD & PELVIS W/CONTRAST Chad Mariee, TERRA.ADDRESSOGRAPH OPERATOR [address] [place] [address] Ct Imaging Referral ID Status Reason Start Date Expiration Date Visits Requested Visits Authorized [id number] Pending Review Auto-Generat ed Referral 2 09/27/2023 1 1 Specialty Diagnoses / Procedures Referred By Contac t Referred To Contact BR IMAGING Diagnoses Breast neoplasm, Tis (DCIS), left Encounter for screening mammogram for high-risk patient Procedures GUILLERMINA SCREENING SCREENING MAMMOGRAPHY BI 2-VIEW BREAST INC CAD Chad Mariee, TERRA.ADDRESSOGRAPH OPERATOR [address] [place] [address] Br Imaging [address] [place] [address] Referral ID Status Reason Start Date Expiration Date Visits Requested Visits Authorized [id number] Authorized Auto-Generat ed Referral 2 09/27/2023 1 1 Specialty Diagnoses / Procedures Referred By Contac t Referred To Contact Gastroenterology Diagnoses Nausea Epigastric pain Procedures CONSULT TO GASTROENTEROLOGY OFFICE/OUTPATIENT [facility] MDM 60-74 MINUTES [place] Hung MD [address] [place] [address] Referral ID Status Reason Start Date Expiration Date Visits Requested Visits Authorized [id number] Authorized PCP Requested Referral 2 09/03/2023 1 1 Specialty Diagnoses / Procedures Referred By Contac t Referred To Contact US IMAGING Diagnoses Epigastric pain Procedures US ABD RT UPPER QUADRANT US ABDOMINAL REAL TIME W/IMAGE LIMITED [place] Hung MD [address] [place] [address] Us Imaging Referral ID Status Reason Start Date Expiration Date Visits Requested Visits Authorized [id number] Authorized Auto-Generat ed Referral 10/03/2023 1 1 Specialty Diagnoses / Procedures Referred By Contac t Referred To Contact Urology Diagnoses Urinary frequency Procedures CONSULT TO UROLOGY OFFICE/OUTPATIENT [facility] 60 MINUTES Francine Madrid APRN.ADDRESSOGRAPH OPERATOR [address] [place] [address] Referral ID Status Reason Start Date Expiration Date Visits Requested Visits Authorized [id number] Authorized PCP Requested Referral 04/20/2024 04/20/2025 1 1 Specialty Diagnoses / Procedures Referred By Contac t Referred To Contact Endocrinology Diagnoses Adenoma of right adrenal gland Procedures CONSULT TO ENDOCRINOLOGY OFFICE/OUTPATIENT [facility] 60 MINUTES Ori Landin, DO [address] [place] [address] Referral ID Status Reason Start Date Expiration Date Visits Requested Visits Authorized [id number] Authorized PCP Requested Referral 05/23/2024 05/23/2025 1 1 Specialty Diagnoses / Procedures Referred By Contac t Referred To Contact CT IMAGING Diagnoses 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) Procedures CT ADRENAL WO/W IVCON CT ABDOMEN W & W/O CONTRAST Alexa Matute MD [address] [place] [address] [place] [address] Referral ID Status Reason Start Date Expiration Date Visits Requested Visits Authorized [id number] Pending Review Auto-Generat ed Referral 07/11/2024 08/10/2025 1 1 Referral ID Status Reason Start Date Expiration Date V isits Requested Visits Authorized [id number] Closed Auto-Generate d Referral 08/15/2024 10/14/2024 1 [...] any alcohol or drug abuse patient.[facility] the event this information is protected by the Federal Confidentiality of Alcohol and Drug Abuse Patient Records regulations: The Federal rules restrict any use of the information to criminally investigate or prosecute any alcohol or drug abuse patient.[facility] HospitalIn the event this information is protected by the Federal Confidentiality of Alcohol and Drug Abuse Patient Records regulations: The Federal rules restrict any use of the information to criminally investigate or prosecute any alcohol or drug abuse patient.[facility] HospitalIn the event this information is protected by the Federal Confidentiality of Alcohol and Drug Abuse Patient Records regulations: The Federal rules restrict any use of the information to criminally investigate or prosecute any alcohol or drug abuse patient.[facility] HospitalIn the event this information is protected by the Federal Confidentiality of Alcohol and Drug Abuse Patient Records regulations: The Federal rules restrict any use of the information to criminally investigate or prosecute any alcohol or drug abuse patient.[facility] HospitalIn the event this information is protected by the Federal Confidentiality of Alcohol and Drug Abuse Patient Records regulations: The Federal rules restrict any use of the information to criminally investigate or prosecute any alcohol or drug abuse patient.[facility] HospitalIn the event this information is protected by the Federal Confidentiality of Alcohol and Drug Abuse Patient Records regulations: The Federal rules restrict any use of the information to criminally investigate or prosecute any alcohol or drug abuse patient.[facility] HospitalIn the event this information is protected by the Federal Confidentiality of Alcohol and Drug Abuse Patient Records regulations: The Federal rules restrict any use of the information to criminally investigate or prosecute any alcohol or drug abuse patient.[facility] HospitalIn the event this information is protected by the Federal Confidentiality of Alcohol and Drug Abuse Patient Records regulations: The Federal rules restrict any use of the information to criminally investigate or prosecute any alcohol or drug abuse patient.[facility] HospitalIn the event this information is protected by the Federal Confidentiality of Alcohol and Drug Abuse Patient Records regulations: The Federal rules restrict any use of the information to criminally investigate or prosecute any alcohol or drug abuse patient.[facility] HospitalIn the event this information is protected by the Federal Confidentiality of Alcohol and Drug Abuse Patient Records regulations: The Federal rules restrict any use of the information to criminally investigate or prosecute any alcohol or drug abuse patient.[facility] HospitalIn the event this information is protected by the Federal Confidentiality of Alcohol and Drug Abuse Patient Records regulations: The Federal rules restrict any use of the information to criminally investigate or prosecute any alcohol or drug abuse patient.[facility] HospitalIn the event this information is protected by the Federal Confidentiality of Alcohol and Drug Abuse Patient Records regulations: The Federal rules restrict any use of the information to criminally investigate or prosecute any alcohol or drug abuse patient.[facility] HospitalIn the event this information is protected by the Federal Confidentiality of Alcohol and Drug Abuse Patient Records regulations: The Federal rules restrict any use of the information to criminally investigate or prosecute any alcohol or drug abuse patient.[facility] HospitalIn the event this information is protected by the Federal Confidentiality of Alcohol and Drug Abuse Patient Records regulations: The Federal rules restrict any use of the information to criminally investigate or prosecute any alcohol or drug abuse patient.[facility] HospitalIn the event this information is protected by the Federal Confidentiality of Alcohol and Drug Abuse Patient Records regulations: The Federal rules restrict any use of the information to criminally investigate or prosecute any alcohol or drug abuse patient.[facility] HospitalIn the event this information is protected by the Federal Confidentiality of Alcohol and Drug Abuse Patient Records regulations: The Federal rules restrict any use of the information to criminally investigate or prosecute any alcohol or drug abuse patient.[facility] HospitalIn the event this information is protected by the Federal Confidentiality of Alcohol and Drug Abuse Patient Records regulations: The Federal rules restrict any use of the information to criminally investigate or prosecute any alcohol or drug abuse patient.[facility] HospitalIn the event this information is protected by the Federal Confidentiality of Alcohol and Drug Abuse Patient Records regulations: The Federal rules restrict any use of the information to criminally investigate or prosecute any alcohol or drug abuse patient.[facility] HospitalIn the event this information is protected by the Federal Confidentiality of Alcohol and Drug Abuse Patient Records regulations: The Federal rules restrict any use of the information to criminally investigate or prosecute any alcohol or drug abuse patient.[facility] HospitalIn the event this information is protected by the Federal Confidentiality of Alcohol and Drug Abuse Patient Records regulations: The Federal rules restrict any use of the information to criminally investigate or prosecute any alcohol or drug abuse patient.[facility] HospitalIn the event this information is protected by the Federal Confidentiality of Alcohol and Drug Abuse Patient Records regulations: The Federal rules restrict any use of the information to criminally investigate or prosecute any alcohol or drug abuse patient.[facility] HospitalIn the event this information is protected by the Federal Confidentiality of Alcohol and Drug Abuse Patient Records regulations: The Federal rules restrict any use of the information to criminally investigate or prosecute any alcohol or drug abuse patient.[facility] the event this information is protected by the Federal Confidentiality of Alcohol and Drug Abuse Patient Records regulations: The Federal rules restrict any use of the information to criminally investigate or prosecute any alcohol or drug abuse patient.[facility] HospitalIn the event this information is protected by the Federal Confidentiality of Alcohol and Drug Abuse Patient Records regulations: The Federal rules restrict any use of the information to criminally investigate or prosecute any alcohol or drug abuse patient.[facility] HospitalIn the event this information is protected [...] any alcohol or drug abuse patient.[facility] HospitalIn the event this information is protected by the Federal Confidentiality of Alcohol and Drug Abuse Patient Records regulations: The Federal rules restrict any use of the information to criminally investigate or prosecute any alcohol or drug abuse patient.[facility] HospitalIn the event this information is protected by the Federal Confidentiality of Alcohol and Drug Abuse Patient Records regulations: The Federal rules restrict any use of the information to criminally investigate or prosecute any alcohol or drug abuse patient.[facility] HospitalIn the event this information is protected by the Federal Confidentiality of Alcohol and Drug Abuse Patient Records regulations: The Federal rules restrict any use of the information to criminally investigate or prosecute any alcohol or drug abuse patient.[facility] HospitalIn the event this information is protected by the Federal Confidentiality of Alcohol and Drug Abuse Patient Records regulations: The Federal rules restrict any use of the information to criminally investigate or prosecute any alcohol or drug abuse patient.[facility] HospitalIn the event this information is protected by the Federal Confidentiality of Alcohol and Drug Abuse Patient Records regulations: The Federal rules restrict any use of the information to criminally investigate or prosecute any alcohol or drug abuse patient.[facility] HospitalIn the event this information is protected by the Federal Confidentiality of Alcohol and Drug Abuse Patient Records regulations: The Federal rules restrict any use of the information to criminally investigate or prosecute any alcohol or drug abuse patient.[facility] HospitalIn the event this information is protected by the Federal Confidentiality of Alcohol and Drug Abuse Patient Records regulations: The Federal rules restrict any use of the information to criminally investigate or prosecute any alcohol or drug abuse patient.[facility] HospitalIn the event this information is protected by the Federal Confidentiality of Alcohol and Drug Abuse Patient Records regulations: The Federal rules restrict any use of the information to criminally investigate or prosecute any alcohol or drug abuse patient.[facility] HospitalIn the event this information is protected by the Federal Confidentiality of Alcohol and Drug Abuse Patient Records regulations: The Federal rules restrict any use of the information to criminally investigate or prosecute any alcohol or drug abuse patient.[facility] HospitalIn the event this information is protected by the Federal Confidentiality of Alcohol and Drug Abuse Patient Records regulations: The Federal rules restrict any use of the information to criminally investigate or prosecute any alcohol or drug abuse patient.[facility] HospitalIn the event this information is protected by the Federal Confidentiality of Alcohol and Drug Abuse Patient Records regulations: The Federal rules restrict any use of the information to criminally investigate or prosecute any alcohol or drug abuse patient.[facility] HospitalIn the event this information is protected by the Federal Confidentiality of Alcohol and Drug Abuse Patient Records regulations: The Federal rules restrict any use of the information to criminally investigate or prosecute any alcohol or drug abuse patient.[facility] HospitalIn the event this information is protected by the Federal Confidentiality of Alcohol and Drug Abuse Patient Records regulations: The Federal rules restrict any use of the information to criminally investigate or prosecute any alcohol or drug abuse patient.[facility] HospitalIn the event this information is protected by the Federal Confidentiality of Alcohol and Drug Abuse Patient Records regulations: The Federal rules restrict any use of the information to criminally investigate or prosecute any alcohol or drug abuse patient.[facility] HospitalIn the event this information is protected by the Federal Confidentiality of Alcohol and Drug Abuse Patient Records regulations: The Federal rules restrict any use of the information to criminally investigate or prosecute any alcohol or drug abuse patient.[facility] HospitalIn the event this information is protected by the Federal Confidentiality of Alcohol and Drug Abuse Patient Records regulations: The Federal rules restrict any use of the information to criminally investigate or prosecute any alcohol or drug abuse patient.[facility] HospitalIn the event this information is protected by the Federal Confidentiality of Alcohol and Drug Abuse Patient Records regulations: The Federal rules restrict any use of the information to criminally investigate or prosecute any alcohol or drug abuse patient.[facility] HospitalIn the event this information is protected by the Federal Confidentiality of Alcohol and Drug Abuse Patient Records regulations: The Federal rules restrict any use of the information to criminally investigate or prosecute any alcohol or drug abuse patient.[facility] HospitalIn the event this information is protected by the Federal Confidentiality of Alcohol and Drug Abuse Patient Records regulations: The Federal rules restrict any use of the information to criminally investigate or prosecute any alcohol or drug abuse patient.[facility] HospitalIn the event this information is protected by the Federal Confidentiality of Alcohol and Drug Abuse Patient Records regulations: The Federal rules restrict any use of the information to criminally investigate or prosecute any alcohol or drug abuse patient.[facility] HospitalIn the event this information is protected by the Federal Confidentiality of Alcohol and Drug Abuse Patient Records regulations: The Federal rules restrict any use of the information to criminally investigate or prosecute any alcohol or drug abuse patient.[facility] HospitalIn the event this information is protected by the Federal Confidentiality of Alcohol and Drug Abuse Patient Records regulations: The Federal rules restrict any use of the information to criminally investigate or prosecute any alcohol or drug abuse patient.[facility] HospitalIn the event this information is protected by the Federal Confidentiality of Alcohol and Drug Abuse Patient Records regulations: The Federal rules restrict any use of the information to criminally investigate or prosecute any alcohol or drug abuse patient.[facility] HospitalIn the event this information is protected by the Federal Confidentiality of Alcohol and Drug Abuse Patient Records regulations: The Federal rules restrict any use of the information to criminally investigate or prosecute any alcohol or drug abuse patient.[facility] HospitalIn the event this information is protected by the Federal Confidentiality of Alcohol and Drug Abuse Patient Records regulations: The Federal rules restrict any use of the information to criminally investigate or prosecute any alcohol or drug abuse patient.[facility] HospitalIn the event this information is protected by the Federal Confidentiality of Alcohol and Drug Abuse Patient Records regulations: The Federal rules restrict any use of the information to criminally investigate or prosecute any alcohol or drug abuse patient.[facility] HospitalIn the event this information is protected by the Federal Confidentiality of Alcohol and Drug Abuse Patient Records regulations: The Federal rules restrict any use of the information to criminally investigate or prosecute any alcohol or drug abuse patient.[facility] HospitalIn the event this information is protected by the Federal Confidentiality of Alcohol and Drug Abuse Patient Records regulations: The Federal rules restrict any use of the information to criminally investigate or prosecute any alcohol or drug abuse patient.[facility] HospitalIn the event this information is protected by the Federal Confidentiality of Alcohol and Drug Abuse Patient Records regulations: The Federal rules restrict any use of the information to criminally investigate or prosecute any alcohol or drug abuse patient.[facility] HospitalIn the event this information is protected by the Federal Confidentiality of Alcohol and Drug Abuse Patient Records regulations: The Federal rules restrict any use of the information to criminally investigate or prosecute any alcohol or drug abuse patient.[facility] HospitalIn the event this information is protected by the Federal Confidentiality of Alcohol and Drug Abuse Patient Records regulations: The Federal rules restrict any use of the information to criminally investigate or prosecute any alcohol or drug abuse patient.[facility] HospitalIn the event this information is protected by the Federal Confidentiality of Alcohol and Drug Abuse Patient Records regulations: The Federal rules restrict any use of the information to criminally investigate or prosecute any alcohol or drug abuse patient.[facility] HospitalIn the event this information is protected by the Federal Confidentiality of Alcohol and Drug Abuse Patient Records regulations: The Federal rules restrict any use of the information to criminally investigate or prosecute any alcohol or drug abuse patient.[facility] HospitalIn the event this information is protected by the Federal Confidentiality of Alcohol and Drug Abuse Patient Records regulations: The Federal rules restrict any use of the information to criminally investigate or prosecute any alcohol or drug abuse patient.[facility] HospitalIn the event this information is protected by the Federal Confidentiality of Alcohol and Drug Abuse Patient Records regulations: The Federal rules restrict any use of the information to criminally investigate or prosecute any alcohol or drug abuse patient.[facility] HospitalIn the event this information is protected by the Federal Confidentiality of Alcohol and Drug Abuse Patient Records regulations: The Federal rules restrict any use of the information to criminally investigate or prosecute any alcohol or drug abuse patient.[facility] HospitalIn the event this information is protected by the Federal Confidentiality of Alcohol and Drug Abuse Patient Records regulations: The Federal rules restrict any use of the information to criminally investigate or prosecute any alcohol or drug abuse patient.[facility] HospitalIn the event this information is protected by the Federal Confidentiality of Alcohol and Drug Abuse Patient Records regulations: The Federal rules restrict any use of the information to criminally investigate or prosecute any alcohol or drug abuse patient.[facility] HospitalIn the event this information is protected by the Federal Confidentiality of Alcohol and Drug Abuse Patient Records regulations: The Federal rules restrict any use of the information to criminally investigate or prosecute any alcohol or drug abuse patient.[facility] HospitalIn the event this information is protected by the Federal Confidentiality of Alcohol and Drug Abuse Patient Records regulations: The Federal rules restrict any use of the information to criminally investigate or prosecute any alcohol or drug abuse patient.[facility] HospitalIn the event this information is protected by the Federal Confidentiality of Alcohol and Drug Abuse Patient Records regulations: The Federal rules restrict any use of the information to criminally investigate or prosecute any alcohol or drug abuse patient.[facility] HospitalIn the event this information is protected by the Federal Confidentiality of Alcohol and Drug Abuse Patient Records regulations: The Federal rules restrict any use of the information to criminally investigate or prosecute any alcohol or drug abuse patient.[facility] HospitalIn the event this information is protected by the Federal Confidentiality of Alcohol and Drug Abuse Patient Records regulations: The Federal rules restrict any use of the information to criminally investigate or prosecute any alcohol or drug abuse patient.[facility] HospitalIn the event this information is protected by the Federal Confidentiality of Alcohol and Drug Abuse Patient Records regulations: The Federal rules restrict any use of the information to criminally investigate or prosecute any alcohol or drug abuse patient.[facility] HospitalIn the event this information is protected by the Federal Confidentiality of Alcohol and Drug Abuse Patient Records regulations: The Federal rules restrict any use of the information to criminally investigate or prosecute any alcohol or drug abuse patient.[facility] HospitalIn the event this information is protected by the Federal Confidentiality of Alcohol and Drug Abuse Patient Records regulations: The Federal rules restrict any use of the information to criminally investigate or prosecute any alcohol or drug abuse patient.[facility] the event this information is protected by the Federal Confidentiality of Alcohol and Drug Abuse Patient Records regulations: The Federal rules restrict any use of the information to criminally investigate or prosecute any alcohol or drug abuse patient.[facility] HospitalIn the event this information is protected by the Federal Confidentiality of Alcohol and Drug Abuse Patient Records regulations: The Federal rules restrict any use of the information to criminally investigate or prosecute any alcohol or drug abuse patient.[facility] HospitalIn the event this information is protected [...] any alcohol or drug abuse patient.[facility] HospitalIn the event this information is protected by the Federal Confidentiality of Alcohol and Drug Abuse Patient Records regulations: The Federal rules restrict any use of the information to criminally investigate or prosecute any alcohol or drug abuse patient.[facility] HospitalIn the event this information is protected by the Federal Confidentiality of Alcohol and Drug Abuse Patient Records regulations: The Federal rules restrict any use of the information to criminally investigate or prosecute any alcohol or drug abuse patient.[facility] HospitalIn the event this information is protected by the Federal Confidentiality of Alcohol and Drug Abuse Patient Records regulations: The Federal rules restrict any use of the information to criminally investigate or prosecute any alcohol or drug abuse patient.[facility] HospitalIn the event this information is protected by the Federal Confidentiality of Alcohol and Drug Abuse Patient Records regulations: The Federal rules restrict any use of the information to criminally investigate or prosecute any alcohol or drug abuse patient.[facility] HospitalIn the event this information is protected by the Federal Confidentiality of Alcohol and Drug Abuse Patient Records regulations: The Federal rules restrict any use of the information to criminally investigate or prosecute any alcohol or drug abuse patient.[facility] HospitalIn the event this information is protected by the Federal Confidentiality of Alcohol and Drug Abuse Patient Records regulations: The Federal rules restrict any use of the information to criminally investigate or prosecute any alcohol or drug abuse patient.[facility] HospitalIn the event this information is protected by the Federal Confidentiality of Alcohol and Drug Abuse Patient Records regulations: The Federal rules restrict any use of the information to criminally investigate or prosecute any alcohol or drug abuse patient.[facility] HospitalIn the event this information is protected by the Federal Confidentiality of Alcohol and Drug Abuse Patient Records regulations: The Federal rules restrict any use of the information to criminally investigate or prosecute any alcohol or drug abuse patient.[facility] HospitalIn the event this information is protected by the Federal Confidentiality of Alcohol and Drug Abuse Patient Records regulations: The Federal rules restrict any use of the information to criminally investigate or prosecute any alcohol or drug abuse patient.[facility] HospitalIn the event this information is protected by the Federal Confidentiality of Alcohol and Drug Abuse Patient Records regulations: The Federal rules restrict any use of the information to criminally investigate or prosecute any alcohol or drug abuse patient.[facility] HospitalIn the event this information is protected by the Federal Confidentiality of Alcohol and Drug Abuse Patient Records regulations: The Federal rules restrict any use of the information to criminally investigate or prosecute any alcohol or drug abuse patient.[facility] HospitalIn the event this information is protected by the Federal Confidentiality of Alcohol and Drug Abuse Patient Records regulations: The Federal rules restrict any use of the information to criminally investigate or prosecute any alcohol or drug abuse patient.[facility] HospitalIn the event this information is protected by the Federal Confidentiality of Alcohol and Drug Abuse Patient Records regulations: The Federal rules restrict any use of the information to criminally investigate or prosecute any alcohol or drug abuse patient.[facility] HospitalIn the event this information is protected by the Federal Confidentiality of Alcohol and Drug Abuse Patient Records regulations: The Federal rules restrict any use of the information to criminally investigate or prosecute any alcohol or drug abuse patient.[facility] HospitalIn the event this information is protected by the Federal Confidentiality of Alcohol and Drug Abuse Patient Records regulations: The Federal rules restrict any use of the information to criminally investigate or prosecute any alcohol or drug abuse patient.[facility] HospitalIn the event this information is protected by the Federal Confidentiality of Alcohol and Drug Abuse Patient Records regulations: The Federal rules restrict any use of the information to criminally investigate or prosecute any alcohol or drug abuse patient.[facility] HospitalIn the event this information is protected by the Federal Confidentiality of Alcohol and Drug Abuse Patient Records regulations: The Federal rules restrict any use of the information to criminally investigate or prosecute any alcohol or drug abuse patient.[facility] HospitalIn the event this information is protected by the Federal Confidentiality of Alcohol and Drug Abuse Patient Records regulations: The Federal rules restrict any use of the information to criminally investigate or prosecute any alcohol or drug abuse patient.[facility] HospitalIn the event this information is protected by the Federal Confidentiality of Alcohol and Drug Abuse Patient Records regulations: The Federal rules restrict any use of the information to criminally investigate or prosecute any alcohol or drug abuse patient.[facility] HospitalIn the event this information is protected by the Federal Confidentiality of Alcohol and Drug Abuse Patient Records regulations: The Federal rules restrict any use of the information to criminally investigate or prosecute any alcohol or drug abuse patient.[facility] HospitalIn the event this information is protected by the Federal Confidentiality of Alcohol and Drug Abuse Patient Records regulations: The Federal rules restrict any use of the information to criminally investigate or prosecute any alcohol or drug abuse patient.[facility] HospitalIn the event this information is protected by the Federal Confidentiality of Alcohol and Drug Abuse Patient Records regulations: The Federal rules restrict any use of the information to criminally investigate or prosecute any alcohol or drug abuse patient.[facility] HospitalIn the event this information is protected by the Federal Confidentiality of Alcohol and Drug Abuse Patient Records regulations: The Federal rules restrict any use of the information to criminally investigate or prosecute any alcohol or drug abuse patient.[facility] HospitalIn the event this information is protected by the Federal Confidentiality of Alcohol and Drug Abuse Patient Records regulations: The Federal rules restrict any use of the information to criminally investigate or prosecute any alcohol or drug abuse patient.[facility] HospitalIn the event this information is protected by the Federal Confidentiality of Alcohol and Drug Abuse Patient Records regulations: The Federal rules restrict any use of the information to criminally investigate or prosecute any alcohol or drug abuse patient.[facility] HospitalIn the event this information is protected by the Federal Confidentiality of Alcohol and Drug Abuse Patient Records regulations: The Federal rules restrict any use of the information to criminally investigate or prosecute any alcohol or drug abuse patient.[facility] HospitalIn the event this information is protected by the Federal Confidentiality of Alcohol and Drug Abuse Patient Records regulations: The Federal rules restrict any use of the information to criminally investigate or prosecute any alcohol or drug abuse patient.[facility] HospitalIn the event this information is protected by the Federal Confidentiality of Alcohol and Drug Abuse Patient Records regulations: The Federal rules restrict any use of the information to criminally investigate or prosecute any alcohol or drug abuse patient.[facility] HospitalIn the event this information is protected by the Federal Confidentiality of Alcohol and Drug Abuse Patient Records regulations: The Federal rules restrict any use of the information to criminally investigate or prosecute any alcohol or drug abuse patient.[facility] HospitalIn the event this information is protected by the Federal Confidentiality of Alcohol and Drug Abuse Patient Records regulations: The Federal rules restrict any use of the information to criminally investigate or prosecute any alcohol or drug abuse patient.[facility] HospitalIn the event this information is protected by the Federal Confidentiality of Alcohol and Drug Abuse Patient Records regulations: The Federal rules restrict any use of the information to criminally investigate or prosecute any alcohol or drug abuse patient.[facility] HospitalIn the event this information is protected by the Federal Confidentiality of Alcohol and Drug Abuse Patient Records regulations: The Federal rules restrict any use of the information to criminally investigate or prosecute any alcohol or drug abuse patient.[facility] HospitalIn the event this information is protected by the Federal Confidentiality of Alcohol and Drug Abuse Patient Records regulations: The Federal rules restrict any use of the information to criminally investigate or prosecute any alcohol or drug abuse patient.[facility] HospitalIn the event this information is protected by the Federal Confidentiality of Alcohol and Drug Abuse Patient Records regulations: The Federal rules restrict any use of the information to criminally investigate or prosecute any alcohol or drug abuse patient.[facility] HospitalIn the event this information is protected by the Federal Confidentiality of Alcohol and Drug Abuse Patient Records regulations: The Federal rules restrict any use of the information to criminally investigate or prosecute any alcohol or drug abuse patient.[facility] HospitalIn the event this information is protected by the Federal Confidentiality of Alcohol and Drug Abuse Patient Records regulations: The Federal rules restrict any use of the information to criminally investigate or prosecute any alcohol or drug abuse patient.[facility] HospitalIn the event this information is protected by the Federal Confidentiality of Alcohol and Drug Abuse Patient Records regulations: The Federal rules restrict any use of the information to criminally investigate or prosecute any alcohol or drug abuse patient.[facility] HospitalIn the event this information is protected by the Federal Confidentiality of Alcohol and Drug Abuse Patient Records regulations: The Federal rules restrict any use of the information to criminally investigate or prosecute any alcohol or drug abuse patient.[facility] HospitalIn the event this information is protected by the Federal Confidentiality of Alcohol and Drug Abuse Patient Records regulations: The Federal rules restrict any use of the information to criminally investigate or prosecute any alcohol or drug abuse patient.[facility] HospitalIn the event this information is protected by the Federal Confidentiality of Alcohol and Drug Abuse Patient Records regulations: The Federal rules restrict any use of the information to criminally investigate or prosecute any alcohol or drug abuse patient.[facility] HospitalIn the event this information is protected by the Federal Confidentiality of Alcohol and Drug Abuse Patient Records regulations: The Federal rules restrict any use of the information to criminally investigate or prosecute any alcohol or drug abuse patient.[facility] HospitalIn the event this information is protected by the Federal Confidentiality of Alcohol and Drug Abuse Patient Records regulations: The Federal rules restrict any use of the information to criminally investigate or prosecute any alcohol or drug abuse patient.[facility] HospitalIn the event this information is protected by the Federal Confidentiality of Alcohol and Drug Abuse Patient Records regulations: The Federal rules restrict any use of the information to criminally investigate or prosecute any alcohol or drug abuse patient.[facility] HospitalIn the event this information is protected by the Federal Confidentiality of Alcohol and Drug Abuse Patient Records regulations: The Federal rules restrict any use of the information to criminally investigate or prosecute any alcohol or drug abuse patient.[facility] HospitalIn the event this information is protected by the Federal Confidentiality of Alcohol and Drug Abuse Patient Records regulations: The Federal rules restrict any use of the information to criminally investigate or prosecute any alcohol or drug abuse patient.[facility] HospitalIn the event this information is protected by the Federal Confidentiality of Alcohol and Drug Abuse Patient Records regulations: The Federal rules restrict any use of the information to criminally investigate or prosecute any alcohol or drug abuse patient.[facility] the event this information is protected by the Federal Confidentiality of Alcohol and Drug Abuse Patient Records regulations: The Federal rules restrict any use of the information to criminally investigate or prosecute any alcohol or drug abuse patient.[facility] HospitalIn the event this information is protected by the Federal Confidentiality of Alcohol and Drug Abuse Patient Records regulations: The Federal rules restrict any use of the information to criminally investigate or prosecute any alcohol or drug abuse patient.[facility] HospitalIn the event this information is protected [...] any alcohol or drug abuse patient.[facility] HospitalIn the event this information is protected by the Federal Confidentiality of Alcohol and Drug Abuse Patient Records regulations: The Federal rules restrict any use of the information to criminally investigate or prosecute any alcohol or drug abuse patient.[facility] HospitalIn the event this information is protected by the Federal Confidentiality of Alcohol and Drug Abuse Patient Records regulations: The Federal rules restrict any use of the information to criminally investigate or prosecute any alcohol or drug abuse patient.[facility] HospitalIn the event this information is protected by the Federal Confidentiality of Alcohol and Drug Abuse Patient Records regulations: The Federal rules restrict any use of the information to criminally investigate or prosecute any alcohol or drug abuse patient.[facility] HospitalIn the event this information is protected by the Federal Confidentiality of Alcohol and Drug Abuse Patient Records regulations: The Federal rules restrict any use of the information to criminally investigate or prosecute any alcohol or drug abuse patient.[facility] HospitalIn the event this information is protected by the Federal Confidentiality of Alcohol and Drug Abuse Patient Records regulations: The Federal rules restrict any use of the information to criminally investigate or prosecute any alcohol or drug abuse patient.[facility] HospitalIn the event this information is protected by the Federal Confidentiality of Alcohol and Drug Abuse Patient Records regulations: The Federal rules restrict any use of the information to criminally investigate or prosecute any alcohol or drug abuse patient.[facility] HospitalIn the event this information is protected by the Federal Confidentiality of Alcohol and Drug Abuse Patient Records regulations: The Federal rules restrict any use of the information to criminally investigate or prosecute any alcohol or drug abuse patient.[facility] HospitalIn the event this information is protected by the Federal Confidentiality of Alcohol and Drug Abuse Patient Records regulations: The Federal rules restrict any use of the information to criminally investigate or prosecute any alcohol or drug abuse patient.[facility] HospitalIn the event this information is protected by the Federal Confidentiality of Alcohol and Drug Abuse Patient Records regulations: The Federal rules restrict any use of the information to criminally investigate or prosecute any alcohol or drug abuse patient.[facility] HospitalIn the event this information is protected by the Federal Confidentiality of Alcohol and Drug Abuse Patient Records regulations: The Federal rules restrict any use of the information to criminally investigate or prosecute any alcohol or drug abuse patient.[facility] Reason for Visit (unrecogniz ed section [...] CT Specialty Diagnoses / Procedures [facility] IM[facility] Diagnoses Abnormal CT of the abdomen Liver 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 Procedures CT ABD/PEL W IVCON CT ABD & PELVIS W/CONTRAST Chad Mariee, POWER LINEWORKER.ADDRESSOGRAPH OPERATOR [address] [place] [address] [place] [address] Referral ID Status Reason Start Date Expiration Date V isits Requested Visits Authorized [id number] Closed Auto-Generate d Referral 11/25/2022 12/25/2022 2 2 Reason Comments Radiology US Specialty Diagnoses / Procedures [facility] Contact [facility] IMAGING Diagnoses Epigastric pain Procedures US ABD RT UPPER QUADRANT US ABDOMINAL REAL TIME W/IMAGE LIMITED Clifton Hung MD [address] [place] [address] [place] [address] Referral ID Status Reason Start Date Expiration Date V isits Requested Visits Authorized [id number] Closed Auto-Generate d Referral 09/03/2022 10/03/2023 1 1 Specialty Diagnoses / Procedures [facility] Contact [facility] IMAGING Diagnoses Breast neoplasm, Tis (DCIS), left Nausea Pain of upper abdomen Procedures CT CHEST W IVCON DIAGNOSTIC COMPUTED TOMOGRAPHY THORAX W/CONTRAST Chad Mariee, POWER LINEWORKER.ADDRESSOGRAPH OPERATOR [address] [place] [address] [place] [address] Referral ID Status Reason Start Date Expiration Date V isits Requested Visits Authorized [id number] Closed Auto-Generate d Referral 09/15/2022 10/15/2022 2 2 Reason Comments Outside Ophtalmology Reason Comments Outside [id number] Ordered Reason Comments ER Discharge Summary Reason [...] NEW HIGH MDM 60 MINUTES Francine Madrid APRN.[facility] [address] [place] [address] Referral ID Status Reason Start Date Expiration Date V isits Requested Visits Authorized [id number] Closed PCP Requested Referral 04/20/2024 04/20/2025 1 [...] concerns. Patient is scheduled to see an Manager Integrated on 07/11/24. Reason Comments Adrenal Adenoma of right adr enal gland Specialty Diagnoses / Procedures Referred By Jared hernández Referred To Contact Endocrinology Diagnoses Adenoma of right adrenal gland Procedures CONSULT TO ENDOCRINOLOGY OFFICE/OUTPATIENT NEW HIGH MDM 60 MINUTES Ori Lord DO [address] [place] [address] Referral ID Status Reason Start Date Expiration Date V isits Requested Visits Authorized [id number] Closed PCP Requested Referral 05/23/2024 05/23/2025 1 [...] Alexa Matute MD [address] [place] [address] [place] [address] Referral ID Status Reason Start Date Expiration Date V isits Requested Visits Authorized [id number] Closed Auto-Generate d Referral 08/15/2024 10/14/2024 1 [...] Population Health Navigation Outreach 04/12/2025 [employer] Foster Reason Comments UTI X3 days Reason Onset Date Comments Allied Health Visit 05/14/2025 Medication A dherence Outreach Reason Onset Date Comments Allied Health Visit 05/17/2025 Medication A dherence Outreach Care Teams (unrecognized sec tion and content) Assistant Federal Public Defender Relationship Specialty Start Date End Date Clifton Hung MD [address] [place], [place] [id number] PCP - General Family Practice 01/16/16 Renata Barnhart MD, [address] [place], [place] [id number] Physician Radiation Oncology 04/25/21 Assistant Federal Public [employer] Relationship Specialty Start Date End Date Clifton Hung MD [address] [facility] [place] [address] PCP - General Family Practice 01/16/16 Renata Barnhart MD, [address] [place] [address] Physician Radiation Oncology 04/25/21 Assistant [employer] Relationship Specialty Start Date End Date Clifton Hung MD [address] [place] [address] PCP - General Family Practice 01/16/16 Renata Barnhart MD, MD [address] [place] [address] Physician Radiation Oncology 04/25/21 Assistant [employer] Relationship Specialty Start Date End Date Clifton Hung MD [address] [place] [address] PCP - General Family Practice 01/16/16 Renata Barnhart MD, MD [address] [place] [address] Physician Radiation Oncology 04/25/21 Assistant Federal Public Defender Relationship Specialty Start Date End Date Clifton Hung MD [address] [facility] [place] [address] PCP - General Family Practice 01/16/16 Renata Barnhart MD, [address] [place] [address] Physician Radiation Oncology 04/25/21 Assistant Federal Public Defender Relationship Specialty Start Date End Date Clifton Hung MD [address] [facility] [place] [address] PCP - General Family Practice 01/16/16 Renata Barnhart MD, [address] [place] [address] Physician Radiation Oncology 04/25/21 Assistant Federal Public Defender Relationship Specialty Start Date End Date Clifton Hung MD [address] [facility] [place] [address] PCP - General Family Practice 01/16/16 Renata Barnhart MD, [address] [place] [address] Physician Radiation Oncology 04/25/21 Assistant Federal Public Defender Relationship Specialty Start Date End Date Clifton Hung MD [address] [facility] [place] [address] PCP - General Family Practice 01/16/16 Renata Barnhart MD, [address] [place] [address] Physician Radiation Oncology 04/25/21 Assistant Federal Public Defender Relationship Specialty Start Date End Date Clifton Hung MD [address] [facility] [place] [address] PCP - General Family Practice 01/16/16 Renata Barnhart MD, [address] [place] [address] Physician Radiation Oncology 04/25/21 Assistant Federal Public Defender Relationship Specialty Start Date End Date Clifton Hung MD [address] [facility] [place] [address] PCP - General Family Practice 01/16/16 Renata Barnhart MD, [address] [place] [address] Physician Radiation Oncology 04/25/21 Assistant Federal Public Defender Relationship Specialty Start Date End Date Clifton Hung MD [address] [place] [address] PCP - General Family Medicine 01/16/16 Renata Barnhart MD, [address] [facility] [place] [address] Physician Radiation Oncology 04/25/21 Assistant Federal Public Defender Relationship Specialty Start Date End Date Clifton Hung MD [address] [facility] [place] [address] PCP - General Family Medicine 01/16/16 Renata Barnhart MD, [address] [facility] [place] [address] Physician Radiation Oncology 04/25/21 Assistant Federal Public Defender Relationship Specialty Start Date End Date Clifton Hung MD [address] [facility] [place] [address] PCP - General Family Medicine 01/16/16 Renata Barnhart MD, [address] [facility] [place] [address] Physician Radiation Oncology 04/25/21 Assistant Federal Public Defender Relationship Specialty Start Date End Date Clifton Hung MD [address] [facility] [place] [address] PCP - General Family Medicine 01/16/16 Renata Barnhart MD, [address] [facility] [place] [address] Physician Radiation Oncology 04/25/21 Assistant Federal Public Defender Relationship Specialty Start Date End Date Clifton Hung MD [address] [facility] [place] [address] PCP - General Family Medicine 01/16/16 Renata Barnhart MD, [address] [facility] [place] [address] Physician Radiation Oncology 04/25/21 Assistant Federal Public Defender Relationship Specialty Start Date End Date Clifton Hung MD [address] [facility] [place] [address] PCP - General Family Medicine 01/16/16 Renata Barnhart MD, [address] [facility] [place] [address] Physician Radiation Oncology 04/25/21 Assistant Federal Public Defender Relationship Specialty Start Date End Date Clifton Hung MD [address] [facility] [place] [address] PCP - General Family Medicine 01/16/16 Renata Barnhart MD, [address] [facility] [place] [address] Physician Radiation Oncology 04/25/21 Assistant Federal Public Defender Relationship Specialty Start Date End Date Clifton Hung MD [address] [facility] [place] [address] PCP - General Family Medicine 01/16/16 Renata Barnhart MD, [address] [facility] [place] [address] Physician Radiation Oncology 04/25/21 Assistant Federal Public Defender Relationship Specialty Start Date End Date Clifton Hung MD [address] [facility] [place] [address] PCP - General Family Medicine 01/16/16 Renata Barnhart MD, [address] [facility] [place] [address] Physician Radiation Oncology 04/25/21 Assistant Federal Public Defender Relationship Specialty Start Date End Date Clifton Hung MD [address] [facility] [place] [address] PCP - General Family Medicine 01/16/16 Renata Barnhart MD, [address] [place] [address] Physician Radiation Oncology 04/25/21 Assistant Federal Public Defender Relationship Specialty Start Date End Date Clifton Hung MD [address] [place] [address] PCP - General Family Medicine 01/16/16 Renata Barnhart MD, [address] [place] [address] Physician Radiation Oncology 04/25/21 Assistant Federal Public Defender Relationship Specialty Start Date End Date Clifton Hung MD [address] [facility] [place] [address] PCP - General Family Medicine 01/16/16 Renata Barnhart MD, [address] [place] [address] Physician Radiation Oncology 04/25/21 Assistant Federal Public Defender Relationship Specialty Start Date End Date Clifton Hung MD [address] [facility] [place] [address] PCP - General Family Medicine 01/16/16 Renata Barnhart MD, [address] [place] [address] Physician Radiation Oncology 04/25/21 Assistant Federal Public Defender Relationship Specialty Start Date End Date Clifton Hung MD [address] [facility] [place] [address] PCP - General Family Medicine 01/16/16 Renata Barnhart MD, [address] [place] [address] Physician Radiation Oncology 04/25/21 Assistant Federal Public Defender Relationship Specialty Start Date End Date Clifton Hung MD [address] [facility] [place] [address] PCP - General Family Medicine 01/16/16 Renata Barnhart MD, [address] [place] [facility] [place] [address] Physician Radiation Oncology 04/25/21 Assistant Federal Public Defender Relationship Specialty Start Date End Date Clifton Hung MD [address] [facility] [place] [address] PCP - General Family Medicine 01/16/16 Renata Barnhart MD, [address] [facility], [place] [address] Physician Radiation Oncology 04/25/21 Team Status: Active Member Role Status Dates Dr. Clifton Hung MD Family Provider Active Dr. Clifton Hung MD Primary Care Provider Active Team Status: Inactive Member Role Status Dates Dr. Clifton Hung MD Primary Care Provider, Referri ng Provider Active Octaviano Humphries CAN REPAIRER, CAN REPAIRER-C Attending Provider Active Team Status: Inactive Member Role Status Dates Dr. Clifton Hung MD Primary Care Provider, Referri ng Provider Active Karin Coles CAN REPAIRER, CAN REPAIRER-C Attending Provider Active Team Status: Inactive Member Role Status Dates Dr. Clifton Hung MD Primary Care Provider Active Karin Coles CAN REPAIRER, CAN REPAIRER-C Attending Provider, Referrin g Provider Active Team Status: Active Member Role Status Dates Dr. Clifton Hung MD Primary Care Provider Active Karin Coles CAN REPAIRER, CAN REPAIRER-C Attending Provider, Referrin g Provider Active Team Status: Active Member Role Status Dates Dr. Clifton Hung MD Primary Care Provider, Referri ng Provider Active Dr. Carson Alcantar DO Attending Provider, Other Prov ider Active Team Status: Inactive Member Role Status Dates Dr. Clifton Hung MD Primary Care Provider, Referri ng Provider Active Dr. Carson Alcantar DO Attending Provider Active Assistant [employer] Defender Relationship Specialty Start Date End Date Clifton Hung MD [address] [facility] [place] [address] PCP - General Family Medicine 01/16/16 Renata Barnhart MD, [address] [place] [facility] [place] [address] Physician Radiation Oncology 04/25/21 Team Status: Inactive Member Role Status Dates Dr. Clifton Hung MD Primary Care Provider Active Dr. Carson Alcantar DO Attending Provider Active Assistant Federal Public Defender Relationship Specialty Start Date End Date Clifton Hung MD [address] [facility] [place] [address] PCP - General Family Medicine 01/16/16 Renata Barnhart MD, [address] [place] [facility] [place] [address] Physician Radiation Oncology 04/25/21 Assistant Federal Public Defender Relationship Specialty Start Date End Date Clifton Hung MD [address] [facility] [place] [address] PCP - General Family Medicine 01/16/16 Renata Barnhart MD, [address] [place] [facility] [place] [address] Physician Radiation Oncology 04/25/21 Assistant Federal Public Defender Relationship Specialty Start Date End Date Clifton Hung MD [address] [facility] [place] [address] PCP - General Family Medicine 01/16/16 Renata Barnhart MD, [address] [place] [facility] [place] [address] Physician Radiation Oncology 04/25/21 Team Status: Inactive Member Role Status Dates Dr. Clifton Hung MD Primary Care Provider Active Dr. Carson Alcantar DO Attending Provider, Referring Provider Active Assistant Federal Public Defender Relationship Specialty Start Date End Date Clifton Hung MD [address] [place] [address] PCP - General Family Medicine 01/16/16 Renata Barnhart MD, MD [address] [place] [address] Physician Radiation Oncology 04/25/21 Assistant Federal Public Defender Relationship Specialty Start Date End Date Clifton Hung MD [address] [place] [address] PCP - General Family Medicine 01/16/16 Renata Barnhart MD, [address] [place] [address] Physician Radiation Oncology 04/25/21 Assistant Federal Public Defender Relationship Specialty Start Date End Date Clifton Hung MD [address] [place] [address] PCP - General Family Medicine 01/16/16 Renata Barnhart MD, [address] [place] [address] Physician Radiation Oncology 04/25/21 Assistant Federal Public Defender Relationship Specialty Start Date End Date Clifton Hung MD [address] [place] [address] PCP - General Family Medicine 01/16/16 Renata Barnhart MD, [address] [place] [address] Physician Radiation Oncology 04/25/21 Assistant Federal Public Defender Relationship Specialty Start Date End Date Clifton Hung MD [address] [place] [address] PCP - General Family Medicine 01/16/16 Renata Barnhart MD, [address] [place] [address] Physician Radiation Oncology 04/25/21 Assistant Federal Public Defender Relationship Specialty Start Date End Date Clifton Hung MD [address] [place] [address] PCP - General Family Medicine 01/16/16 Renata Barnhart MD, [address] [place] [address] Physician Radiation Oncology 04/25/21 Assistant Federal Public Defender Relationship Specialty Start Date End Date Clifton Hung MD [address] [place] [address] PCP - General Family Medicine 01/16/16 Renata Barnhart MD, [address] [place] [address] Physician Radiation Oncology 04/25/21 Assistant Federal Public Defender Relationship Specialty Start Date End Date Clifton Hung MD [address] [place] [address] PCP - General Family Medicine 01/16/16 Renata Barnhart MD, [address] [place] [address] Physician Radiation Oncology 04/25/21 Assistant Federal Public Defender Relationship Specialty Start Date End Date Clifton Hung MD [address] [facility] [place] [address] PCP - General Family Medicine 01/16/16 Renata Barnhart MD, MD [address] [place] [address] Physician Radiation Oncology 04/25/21 Assistant Federal Public Defender Relationship Specialty Start Date End Date Clifton Hung MD [address] [place] [address] PCP - General Family Medicine 01/16/16 Renata Barnhart MD, [address] [place], [place] [address] Physician Radiation Oncology 04/25/21 Team Status: Active Member Role Status Dates Dr. Clifton Hung MD Primary Care Provider Active Octaviano Humphries CAN REPAIRER, CAN REPAIRER-C Referring Provider, Other Provide r Active Dr. Karsten Zarate MD Attending Provider Active Team Status: Inactive Member Role Status Dates Dr. Clifton Hung MD Primary Care Provider Active Octaviano Humphries CAN REPAIRER, CAN REPAIRER-C Attending Provider, Referring Pro vider Active Team Status: Inactive Member Role Status Dates Dr. Clifton Hung MD Primary Care Provider Active Dr. Rafita Fraser DO Attending Provider, Emergency Pro vider Active Team Status: Active Member Role Status Dates Dr. Clifton Hung MD Primary Care Provider Active Octaviano Humphries CAN REPAIRER, CAN REPAIRER-C Attending Provider, Referring Pro vider Active Assistant [employer] Public Defender Relationship Specialty Start Date End Date Clifton Hung MD [address] [place] [address] PCP - General Family Medicine 01/16/16 Renata Barnhart MD, [address] [place] [address] Physician Radiation Oncology 04/25/21 Team Status: Active Member Role Status Dates Dr. Clifton Hung MD Primary Care Provider Active Octaviano Humphries CAN REPAIRER, CAN REPAIRER-C Attending Provider Active Team Status: Active Member Role Status Dates Dr. Clifton Hung MD Primary Care Provider Active Dr. Karsten Zarate MD Attending Provider Active Octaviano Humphries CAN REPAIRER, CAN REPAIRER-C Referring Provider Active Team Status: Inactive Member Role Status Dates Dr. Clifton Hung MD Primary Care Provider Active Dr. Caro Pedro MD Emergency Provider Active Assistant Federal Public Defender Relationship Specialty Start Date End Date Clifton Hung MD [address] [facility] [place] [address] PCP - General Family Medicine 01/16/16 Renata Barnhart MD [address] [facility] [place] [address] Physician Radiation Oncology 04/25/21 Team Status: Inactive Member Role Status Dates Dr. Clifton Hung MD Primary Care Provider Active Dr. Caro Pedro MD Attending Provider, Emergency Provider Active Team Status: Inactive Member Role Status Dates Dr. Clifton Hung MD Primary Care Provider Active Dr. Victor M Hernandez DO Emergency Provider Active Assistant Federal Public Defender Relationship Specialty Start Date End Date Clifton Hung MD [address] [facility] [place] [address] PCP - General Family Medicine 01/16/16 Renata Barnhart MD [address] [place] [address] Physician Radiation Oncology 04/25/21 Assistant Federal Public Defender Relationship Specialty Start Date End Date Clifton Hung MD [address] [place] [address] PCP - General Family Medicine 01/16/16 Renata Barnhart MD [address] [place] [address] Physician Radiation Oncology 04/25/21 Team Status: Inactive Member Role Status Dates Dr. Clifton Hung MD Primary Care Provider Active Dr. Victor M Hernandez DO Attending Provider, Emergency Pr ovider Active Assistant Federal Public Defender Relationship Specialty Start Date End Date Clifton Hung MD [address] [facility] [place] [address] PCP - General Family Medicine 01/16/16 Renata Barnhart MD [address] [facility] [place] [address] Physician Radiation Oncology 04/25/21 Assistant Federal Public Defender Relationship Specialty Start Date End Date Clifton Hung MD [address] [facility] [place] [address] PCP - General Family Medicine 01/16/16 Renata Barnhart MD [address] [facility] [place] [address] Physician Radiation Oncology 04/25/21 Assistant Federal Public Defender Relationship Specialty Start Date End Date Clifton Hung MD [address] [facility] [place] [address] PCP - General Family Medicine 01/16/16 Renata Barnhart MD [address] [facility] [place] [address] Physician Radiation Oncology 04/25/21 Assistant Federal Public Defender Relationship Specialty Start Date End Date Clifton Hung MD [address] [facility] [place] [address] PCP - General Family Medicine 01/16/16 Renata Barnhart MD [address] [facility] [place] [address] Physician Radiation Oncology 04/25/21 Assistant Federal Public Defender Relationship Specialty Start Date End Date Clifton Hung MD [address] [place] [address] PCP - General Family Medicine 01/16/16 Renata Barnhart MD [address] [place] [address] Physician Radiation Oncology 04/25/21 Assistant Federal Public Defender Relationship Specialty Start Date End Date Clifton Hung MD [address] [place] [address] PCP - General Family Medicine 01/16/16 Renata Barnhart MD [address] [address] Physician Radiation Oncology 04/25/21 Assistant Federal Public Defender Relationship Specialty Start Date End Date Clifton Hung MD [address] [place] [address] PCP - General Family Medicine 01/16/16 Renata Barnhart MD [address] [place] [address] Physician Radiation Oncology 04/25/21 Assistant Federal Public Defender Relationship Specialty Start Date End Date Clifton Hung MD [address] [place] [address] PCP - General Family Medicine 01/16/16 Renata Barnhart MD [address] [place] [address] Physician Radiation Oncology 04/25/21 Assistant Federal Public Defender Relationship Specialty Start Date End Date Clifton Hung MD [address] [place] [address] PCP - General Family Medicine 01/16/16 Renata Barnhart MD [address] [place] [address] Physician Radiation Oncology 04/25/21 Assistant Federal Public Defender Relationship Specialty Start Date End Date Clifton Hung MD [address] [place] [address] PCP - General Family Medicine 01/16/16 Renata Barnhart MD [address] [place] [address] Physician Radiation Oncology 04/25/21 Assistant Federal Public Defender Relationship Specialty Start Date End Date Clifton Hung MD [address] [place] [address] PCP - General Family Medicine 01/16/16 Renata Barnhart MD [address] [place] [address] Physician Radiation Oncology 04/25/21 Assistant Federal Public Defender Relationship Specialty Start Date End Date Clifton Hung MD [address] [place] [address] PCP - General Family Medicine 01/16/16 Renata Barnhart MD [address] [address] Physician Radiation Oncology 04/25/21 Assistant Federal Public Defender Relationship Specialty Start Date End Date Clifton Hung MD [address] [facility] [place] [address] PCP - General Family Medicine 01/16/16 Renata Barnhart MD [address] [place] [address] Physician Radiation Oncology 04/25/21 Assistant Federal Public Defender Relationship Specialty Start Date End Date Clifton Hung MD [address] [facility] [place] [address] PCP - General Family Medicine 01/16/16 Renata Barnhart MD [address] [facility] [address] Physician Radiation Oncology 04/25/21 Assistant Federal Public Defender Relationship Specialty Start Date End Date Clifton Hung MD [address] [facility] [place] [address] PCP - General Family Medicine 01/16/16 Renata Barnhart MD [address] [address] Physician Radiation Oncology 04/25/21 Assistant Federal Public Defender Relationship Specialty Start Date End Date Clifton Hung MD [address] [place] [address] PCP - General Family Medicine 01/16/16 Renata Barnhart MD [address] [address] Physician Radiation Oncology 04/25/21 Assistant Federal Public Defender Relationship Specialty Start Date End Date Clifton Hung MD [address] [facility] [place] [address] PCP - General Family Medicine 01/16/16 Renata Barnhart MD [address] [place] [address] Physician Radiation Oncology 04/25/21 Assistant Federal Public Defender Relationship Specialty Start Date End Date Clifton Hung MD [address] [facility] [place] [address] PCP - General Family Medicine 01/16/16 Renata Barnhart MD [address] [place] [address] Physician Radiation Oncology 04/25/21 Assistant Federal Public Defender Relationship Specialty Start Date End Date Clifton Hung MD [address] [facility] [place] [address] PCP - General Family Medicine 01/16/16 Renata Barnhart MD [address] [place] [address] Physician Radiation Oncology 04/25/21 Assistant Federal Public Defender Relationship Specialty Start Date End Date Clifton Hung MD [address] [facility] [place] [address] PCP - General Family Medicine 01/16/16 Renata Barnhart MD [address] [place] [address] Physician Radiation Oncology 04/25/21 Assistant Federal Public Defender Relationship Specialty Start Date End Date Clifton Hung MD [address] [facility] [place] [address] PCP - General Family Medicine 01/16/16 Renata Barnhart MD [address] [place] [address] Physician Radiation Oncology 04/25/21 Assistant Federal Public Defender Relationship Specialty Start Date End Date Clifton Hung MD [address] [facility] [place] [address] PCP - General Family Medicine 01/16/16 Renata Barnhart MD [address] [place] [address] Physician Radiation Oncology 04/25/21 Assistant Federal Public Defender Relationship Specialty Start Date End Date Clifton Hung MD [address] [facility] [place] [address] PCP - General Family Medicine 01/16/16 Renata Barnhart MD [address] [place] [address] Physician Radiation Oncology 04/25/21 Assistant Federal Public Defender Relationship Specialty Start Date End Date Clifton Hung MD [address] [place] [address] PCP - General Family Medicine 01/16/16 Renata Barnhart MD [address] [place] [address] Physician Radiation Oncology 04/25/21 Assistant Federal Public Defender Relationship Specialty Start Date End Date Clifton Hung MD [address] [facility] [place] [address] PCP - General Family Medicine 01/16/16 Renata Barnhart MD [address] [place] [address] Physician Radiation Oncology 04/25/21 Francine Madrid APRN.ADDRESSOGRAPH OPERATOR [address] [place] [address] [facility] 10/14/24 Cherise Sifuentes PA-C [address] [place] [address] [facility] 10/14/24 Assistant Federal Public Defender Relationship Specialty Start Date End Date Clifton Hung MD [address] [place] [address] PCP - General Family Medicine 01/16/16 Renata Barnhart MD [address] [place] [address] Physician Radiation Oncology 04/25/21 Francine Madrid APRN.ADDRESSOGRAPH OPERATOR [address] [place] [address] [facility] 10/14/24 Cherise Sifuentes PA-C [address] [facility] [place] [address] [facility] 10/14/24 Assistant Federal Public Defender Relationship Specialty Start Date End Date Clifton Hung MD [address] [place] [address] PCP - General Family Medicine 01/16/16 Renata Barnhart MD [address] [place] [address] Physician Radiation Oncology 04/25/21 Francine Madrid APRN.ADDRESSOGRAPH OPERATOR [address] [place] [address] [facility] 10/14/24 Cherise Sifuentes PA-C [address] [place] [address] [facility] 10/14/24 Assistant Federal Public Defender Relationship Specialty Start Date End Date Clifton Hung MD [address] [place] [address] PCP - General Family Medicine 01/16/16 Renata Barnhart MD [address] [place] [address] Physician Radiation Oncology 04/25/21 Francine Madrid APRN.ADDRESSOGRAPH OPERATOR [address] [place] [address] [facility] 10/14/24 Cherise Sifuentes PA-C [address] [place] [address] Car D[facility] Family [facility] 10/14/24 Assistant Federal Public Defender Relationship Specialty Start Date End Date Clifton Hung MD [address] [place] [address] PCP - General Family Medicine 01/16/16 Renata Barnhart MD [address] [place] [address] Physician Radiation Oncology 04/25/21 Francine Madrid APRN.ADDRESSOGRAPH OPERATOR [address] [place] [address] [facility] 10/14/24 Cherise Sifuentes PA-C [address] [facility] [place] [address] [facility] 10/14/24 Assistant Federal Public Defender Relationship Specialty Start Date End Date Clifton Hung MD [address] [facility] [place] [address] PCP - General Family Medicine 01/16/16 Renata Barnhart MD [address] [facility] [place] [address] Physician Radiation Oncology 04/25/21 Francine Madrid APRN.ADDRESSOGRAPH OPERATOR [address] [place] [address] [facility] 10/14/24 Cherise Sifuentes PA-C [address] [facility] [place] [address] [facility] 10/14/24 Assistant [employer] Relationship Specialty Start Date End Date Clifton Hung MD [address] [facility] [place] [address] PCP - General Family Medicine 01/16/16 Renata Barnhart MD [address] [facility] [address] Physician Radiation Oncology 04/25/21 Francine Madrid APRN.ADDRESSOGRAPH OPERATOR [address] [place] [address] [facility] [employer] 10/14/24 Cherise Sifuentes PA-C [address] [place] [address] [employer] [facility] 10/14/24 Assistant [employer] Relationship Specialty Start Date End Date Clifton Hung MD [address] [place] [address] PCP - General Family Medicine 01/16/16 Renata Barnhart MD [address] [address] Physician Radiation Oncology 04/25/21 Francine Madrid, TERRA.ADDRESSOGRAPH OPERATOR [address] [place] [address] [employer] [facility] 10/14/24 Cherise Sifuentes PA-C [address] [place] [address] [facility] 10/14/24 Assistant [employer] Relationship Specialty Start Date End Date Clifton Hung MD [address] [place] [address] PCP - General Family Medicine 01/16/16 Renata Barnhart MD [address] [address] Physician Radiation Oncology 04/25/21 Francine Madrid, TERRA.ADDRESSOGRAPH OPERATOR [address] [place] [address] [employer] [facility] 10/14/24 Cherise Sifuentes PA-C [address] [facility] [place] [address] [facility] 10/14/24 Assistant [employer] Relationship Specialty Start Date End Date Clifton Hung MD [address] [place] [address] PCP - General Family Medicine 01/16/16 Renata Barnhart MD [address] [place] [address] Physician Radiation Oncology 04/25/21 Francine Madrid APRN.ADDRESSOGRAPH OPERATOR [address] [place] [address] [facility] 10/14/24 Cherise Sifuentes PA-C [address] [place] [address] [facility] 10/14/24 Assistant [employer] Relationship Specialty Start Date End Date Clifton Hung MD [address] [place] [address] PCP - General Family Medicine 01/16/16 Renata Barnhart MD [address] [address] Physician Radiation Oncology 04/25/21 Francine Madrid APRN.ADDRESSOGRAPH OPERATOR [address] [place] [address] [facility] 10/14/24 Cherise Sifuentes PA-C [address] [facility] [place] [address] [facility] 10/14/24 Assistant [employer] Relationship Specialty Start Date End Date Clifton Hung MD [address] [place] [address] PCP - General Family Medicine 01/16/16 Renata Barnhart MD [address] [place] [address] Physician Radiation Oncology 04/25/21 Francine Madrid APRN.ADDRESSOGRAPH OPERATOR [address] [place] [address] [facility] 10/14/24 Cherise Sifuentes PA-C [address] [place] [address] [facility] 10/14/24 Assistant [employer] Relationship Specialty Start Date End Date Clifton Hung MD [address] [place] [address] PCP - General Family Medicine 01/16/16 Renata Barnhart MD [address] [place] [address] Physician Radiation Oncology 04/25/21 Francine Madrid APRN.ADDRESSOGRAPH OPERATOR [address] [place] [address] [facility] 10/14/24 Cherise Sifuentes PA-C [address] [place] [address] [facility] 10/14/24 Assistant [employer] Relationship Specialty Start Date End Date Clifton Hung MD [address] [facility] [place] [address] PCP - General Family Medicine 01/16/16 Renata Barnhart MD [address] [place] [address] Physician Radiation Oncology 04/25/21 Cherise Sifuentes PA-C [address] [place] [address] [facility] 10/14/24 Assistant [employer] Relationship Specialty Start Date End Date Clifton Hung MD [address] [place] [address] PCP - General Family Medicine 01/16/16 Renata Barnhart MD [address] [place] [address] Physician Radiation Oncology 04/25/21 Francine Madrid APRN.CNP [address] [place] [address] [facility] 04/09/25 Cherise Sifuentes PA-C [address] [facility] [place] [address] [facility] 04/09/25 Assistant [employer] Relationship Specialty Start Date End Date Clifton Hung MD [address] [place] [address] PCP - General Family Medicine 01/16/16 Renata Barnhart MD [address] [facility] [address] Physician Radiation Oncology 04/25/21 Francine Madrid APRN.ADDRESSOGRAPH OPERATOR [address] [place] [place] [address] [facility] 04/09/25 Cherise Sifuentes PA-C [address] [facility] [place] [address] [facility] 04/09/25 Assistant [employer] Relationship Specialty Start Date End Date Clifton Hung MD [address] [place] [address] PCP - General Family Medicine 01/16/16 Renata Barnhart MD [address] [facility] [place] [address] Physician Radiation Oncology 04/25/21 Francine Madrid APRN.ADDRESSOGRAPH OPERATOR [address] [facility] [place] [address] [facility] 04/09/25 Cherise Sifuentes PA-C [address] [facility] [place] [address] [facility] 04/09/25 Assistant [employer] Relationship Specialty Start Date End Date Clifton Hung MD [address] [facility] [place] [address] PCP - General Family Medicine 01/16/16 Renata Barnhart MD [address] [place] [address] Physician Radiation Oncology 04/25/21 Francine Madrid APRN.ADDRESSOGRAPH OPERATOR [address] [place] [address] [facility] 04/09/25 Cherise Sifuentes PA-C [address] [facility] [place] [address] [facility] 04/09/25 Assistant [employer] Relationship Specialty Start Date End Date Clifton Hung MD [address] [facility] [place] [address] PCP - General Family Medicine 01/16/16 Renata Barnhart MD [address] [facility] [place] [address] Physician Radiation Oncology 04/25/21 Francine Madrid APRN.ADDRESSOGRAPH OPERATOR [address] [place] [address] [facility] 04/09/25 Cherise Sifuentes PA-C [address] [facility] [place] [address] [facility] 04/09/25 Assistant [employer] Relationship Specialty Start Date End Date Clifton Hung MD [address] [facility] [place] [address] PCP - General Family Medicine 01/16/16 Renata Barnhart MD [address] [facility] [place] [address] Physician Radiation Oncology 04/25/21 Francine Madrid APRN.ADDRESSOGRAPH OPERATOR [address] [place] [address] [facility] 04/09/25 Cherise Sifuentes PA-C [address] [place] [address] [facility] 04/09/25 Assistant [employer] Relationship Specialty Start Date End Date Clifton Hung MD [address] [place] [address] PCP - General Family Medicine 01/16/16 Renata Barnhart MD [address] [address] Physician Radiation Oncology 04/25/21 Francine Madrid APRN.ADDRESSOGRAPH OPERATOR [address] [place] [address] [facility] 10/14/24 03/25/25 Cherise Sifuentes PA-C [address] [place] [address] [facility] 10/14/24 04/08/25 Francine Madrid APRN.ADDRESSOGRAPH OPERATOR [address] [place] [address] [facility] 04/09/25 Cherise Sifuentes PA-C [address] [place] [address] [facility] 04/09/25 Assistant [employer] Relationship Specialty Start Date End Date Clifton Hung MD [address] [place] [address] PCP - General Family Medicine 01/16/16 Renata Barnhart MD [address] [place] [address] Physician Radiation Oncology 04/25/21 Francine Madrid APRN.CNP [address] [place] [address] [facility] 04/09/25 Cherise Sifuentes PA-C [address] [place] [address] [facility] 04/09/25 Goals (unrecognized section and content) Goals [...] DATE CREATED AUTHOR 01/24/[address] [facility] DATE CREATED AUTHOR AUTHOR'S ORGANIZ ATION 10/25/2024 [facility] DATE CREATED AUTHOR AUTHOR'S ORGANIZ ATION 02/19/2025 [facility] DATE CREATED AUTHOR AUTHOR'S ORGANIZ ATION 05/18/2025 [facility] FOR RECORDS PERTAINING TO PATIENTS WHO [...] BE BASED ON THE PRIMARY CLINICAL RECORDS. [employer] [facility]. provides no warranty or guarantee of the accuracy or completeness of information in this document.
[2025-05-20] MEDS: 0.9% Normal Saline (1000mL) 1,000 ML 125 ML IV ×3 (04:49→21:10)
[2025-05-20 06:12] LABS: Hematocrit 33.8 % (37-47); Hemoglobin 11.2 g/dL (12.0-15.0); Immature Granulocytes Count 0.020 X10^3/uL (0.0-0.0); Mean Corp Hgb Conc 33.1 g/dL (32-36); Mean Corpuscular Volume 92.6 fL (81-99); Mean Platelet Vol. 9.8 fl (6.2-12.0); NRBC Flagged by Analyzer 0 % (0-5); Platelet Count 171 K/mm3 (150-450); RBC Distribution Width CV 13.9 % (11.6-14.6); RBC Distribution Width SD 47.0 fl (35.1-43.9); Red Blood Count 3.65 M/mm3 (4.2-5.4); White Blood Count 6.8 K/mm3 (4.4-11.0)
[2025-05-20 06:35] LABS: Anion Gap 10 (5-15); BUN 11 mg/dL (4-19); BUN/Creat Ratio 13.5 RATIO (10-20); Calcium,Total 8.2 mg/dL (7.6-11.0); Carbon Dioxide 26.8 mmol/L (21.0-32.0); Chloride 102 mmol/L (98-108); Estimated Creatinine Clearance 59.35 ml/min (50-250); Glucose 132 mg/dL (70-99); Potassium 3.7 mmol/L (3.3-5.1)
--- NOTE | 2025-05-20 08:11 | PN.SURG_ITS ---
Subjective Subjective The patient is still having abdominal pain which has not improved since being in the ER Objective Data Objective Data Vital Signs: Vital Signs Temp Pulse Resp BP Pulse Ox O2 Del Method 98.1 F 61 18 160/69 H 100 Room Air 05/20/25 04:32 05/20/25 04:32 05/20/25 04:32 05/20/25 04:32 05/20/25 04:32 05/20/25 04:32 Oxygen Delivery Method Room Air Weight: 141 lb 12.116 oz Body Mass Index (BMI) 25.1 Intake & Output: Intake and Output for Last 24 Hours 05/18/25 05/19/25 05/20/25 23:59 23:59 23:59 Intake Total 1000 / 1000 Balance 1000 / 1000 Lab / Micro Data 05/20/25 05:40 05/20/25 05:40 Labs: Laboratory Results - last 24 hr 05/19/25 21:35: WBC 5.9, RBC 4.19 L, Hgb 12.9, Hct 38.8, MCV 92.6, MCH 30.8, MCHC 33.2, RDW Std Deviation 47.4 H, RDW Coeff of Clementine 14.0, Plt Count 198, MPV 9.2, Immature Gran % (Auto) 0.200, Neut % (Auto) 45.1 L, Lymph % (Auto) 45.0 H, [place] % (Auto) 8.0, Eos % (Auto) 1.4, Baso % (Auto) 0.3, Absolute Neuts (auto) 2.7, Absolute Lymphs (auto) 2.66, Nucleated RBC % 0, Sodium 141, Potassium 3.5, Chloride 102, Carbon Dioxide 27.7, Anion Gap 12, BUN 15, Creatinine 0.88, Estim Creat Clear Calc 56.11, Est GFR (MDRD) Non-Af 72, BUN/Creatinine Ratio 16.7, G lucose 113 H, Calcium 9.2, Total Bilirubin 0.21, AST 22, ALT 12, Alkaline Phosphatase 49, Total Protein 7.2, Albumin 4.1, Globulin 3.1, Albumin/Globulin Ratio 1.3, Lipase 92 H 05/19/25 21:49: Urine Color Yellow, Urine Clarity Clear, Urine pH 7.0, Ur Specific [place] 1.010, Urine Protein 30 H, Urine Glucose (UA) Normal, Urine Ketones Negative, Urine Occult Blood 10 H, Urine Nitrite Negative, Urine Bilirubin Negative, Urine Urobilinogen Normal, Ur Leukocyte Esterase 500 H, Urine RBC 0-5 SEEN, Urine WBC 10-25 SEEN, Ur Squamous Epith Cells 10-25 SEEN, Ur Transition Epith Cell 0-5 SEEN, Urine Bacteria 1+, Urine Mucus 0 SEEN 05/19/25 23:26: PT 13.9, INR 1.0, APTT 27.6, Lactic Acid < 1.0, Blood Type A POSITIVE, Antibody Screen NEGATIVE 05/20/25 05:40: WBC 6.8, RBC 3.65 L, Hgb 11.2 L, Hct 33.8 L, MCV 92.6, MCH 30.7, MCHC 33.1, RDW Std Deviation 47.0 H, RDW Coeff of Clementine 13.9, Plt Count 171, MPV 9.8, Immature Gran % (Auto) 0.300, Neut % (Auto) 62.8, Lymph % (Auto) 28.0, [place] % (Auto) 8.2, Eos % (Auto) 0.4, Baso % (Auto) 0.3, Absolute Neuts (auto) 4.3, Absolute Lymphs (auto) 1.90, Nucleated RBC % 0, Sodium 139, Potassium 3.7, Chloride 102, Carbon Dioxide 26.8, Anion Gap 10, BUN 11, Creatinine 0.83, Estim Creat Clear Calc 59.35, Est GFR (MDRD) Non-Af 77, BUN/Creatinine Ratio 13.5, G lucose 132 H, Calcium 8.2 Radiography Diagnostic Testing: Radiology Impression Abdomen/Pelvis CT 05/19/25 21:48 IMPRESSION: Mildly prominent loops of small bowel in the left lateral abdomen, peripheral to the colon, and with associated mesenteric edema and free fluid. Combination of findings raises concern for developing small bowel obstruction (for which internal hernia is possible). Additional considerations include enteritis or mesenteric ischemia. Correlate with symptoms and consider Surgical consultation. Reading Location: [id number] Abdomen/Pelvis CTA 05/20/25 00:30 IMPRESSION: Trace ascites adjacent to the liver. Dense colonic stool which may suggest constipation. Reading Location: [place] [address] Physical Exam Const oriented x3 and no apparent distress Resp normal respiratory effort GI soft to palpation Palpation: tender LUQ Extremity normal to inspection Assessment & Plan Assessment/Plan (1) SBO (small bowel obstruction): PLAN: The patient is still having abdominal pain. White count is still normal. Denies nausea or vomiting. Given the first CAT scans read of internal hernia I believe she warrants exploration. I discussed this with her in detail and she is agreeable. I discussed performing exploratory laparoscopy with lysis of adhesions. I discussed the possibility of having to convert to open surgery or resect bowel. I also discussed the other risks of the surgery such as bleeding, infection, injury to underlying bowel or other organs. Patient understands the risks and is willing to proceed. Wong Valdes MD Pager: [facility] [address] [place] [address], [address] [place] [address] Office:
--- NOTE | 2025-05-20 08:19 | EKG12_ITS ---
Test Reason : preop Blood Pressure : */* mmHG Vent. Rate : 56 BPM Atrial Rate : 56 BPM P-R Int : 126 ms QRS Dur : 90 ms QT Int : 474 ms P-R-T Axes : 27 -33 -2 degrees QTcB Int : 457 ms Sinus bradycardia Left axis deviation Nonspecific ST abnormality Abnormal ECG When compared with ECG of 05-Jan-2017 05:48, Nonspecific T wave abnormality, improved in Inferior leads T wave inversion no longer evident in Anterior leads Confirmed by Noble Buchanan ([id number]), web editor ALEKS HERNANDEZ ([id number]) on 05/24/2025 8:33:00 AM Referred By: Lucio Confirmed By: Noble Buchanan
--- NOTE | 2025-05-20 10:07 | NURSING ---
accucheck is 109 at this time
--- NOTE | 2025-05-20 10:13 | PRE.ANES_ITS ---
ASA Classification* ASA Classification ASA Classification: 3 and E Assessment & Plan Anesthesia* Anesthesia Assessment Anesthesia Assessment: Discussed sedation and/or anesthesia options, risks, benefits, and alternatives with patient/parents/legal guardian/POA. Questions invited. The patient/parents/legal guardian/POA seems to understand and agrees to proceed with anesthesia plan. Reviewed the physical assessment, medical history, allergy history and patient home medications list prior to surgery/procedure/anesthetic and documented any changes. Performed airway and anesthesia risk assessments. Anesthesia Type Anesthesia Type: General Anesthesia Focused Assessment* Temperature: 98.5 F Pulse Rate: 66 Blood Pressure: 138/75 Respiratory Rate: 18 Pulse Ox: 100 Airway Assessment Mouth opens: >3 cm Mallampati Score: II Labs Anesthesia Preop lab: CBC WBC 6.8 K/mm3 (4.4-11.0) 05/20/25 05:40 05/20/25 RBC 3.65 M/mm3 (4.2-5.4) L 05/20/25 05:40 05/20/25 Hgb 11.2 g/dL (12.0-15.0) L 05/20/25 05:40 5 Hct 33.8 % (37-47) L 05/20/25 05:40 05/20/25 Plt Count 171 K/mm3 (150-450) 05/20/25 05:40 05/20/25 CHEMISTRY Potassium 3.7 mmol/L (3.3-5.1) 05/20/25 05:40 05/20/25 Sodium 139 mmol/L (133-145) 05/20/25 05:40 05/20/25 Magnesium 2.0 mg/dL (1.6-2.6) 05/28/22 15:12 05/28/22 BUN 11 mg/dL (4-19) 05/20/25 05:40 05/20/25 Creatinine 0.83 mg/dL (0.70-1.20) 05/20/25 05:40 05/20/25 Glucose 132 mg/dL (70-99) H 05/20/25 05:40 05/20/25 POC Glucose 109 mg/dL (74-106) H 05/20/25 09:33 05/20/25 TSH 2.35 uIU/mL (0.358-3.74) 05/28/22 15:12 COAG PT 13.9 SECONDS (11.7-14.9) 05/19/25 23:26 Pre-Assessment Diagnosis/Proposed Procedure Planned Operative Procedure(s): Exploratory laparoscopy Anesthesia History 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 When Was Last Pacemaker Check QUESTION #4 FULL TEXT: You/Your Family Experience fever (hyperthermia) with Anesthesia Last Oral Intake Last Oral intake: Last Oral Intake NPO since 00:00 05/20/25 08:39 Meds taken in AM with sips of Yes 05/20/25 08:39 water? Meds patient instructed to metoprolol 05/20/25 08:39 take am of surgery PONV PONV - construction director: PONV - construction director Female HX of Motion Sickness HX of N/V After Surgery Non-Smoker Duration of Surgery greater than 60 minutes Number of Risk Factors PONV Score Height & Weight Height & Weight: Anesthesia: Height & Weight Height 5 ft 3 in 05/20/25 08:39 Weight: 63.412 kg 05/20/25 08:39 Body Mass Index (BMI) 24.7 05/20/25 08:39 Respiratory Assessment Respiratory Assessment - construction director: Respiratory Tract Infection Hx - construction director Hx Respiratory Tract Infection No: had covid in 05/20/25 08:48 STOP Sleep Apnea STOP Sleep Apnea - construction director: STOP Sleep Apnea - construction director Hx Hypertension Yes 05/20/25 04:37 Hx Sleep Apnea Yes 05/20/25 04:37 CPAP No 05/20/25 04:37 BIPAP No 05/20/25 04:37 Do you snore loudly (louder than talking or can be heard Do you often feel tired/ fatigued/ sleepy during daytime? Has anyone observed you stop breathing during sleep? STOP Results Positive 05/20/25 04:37 QUESTION #5 FULL TEXT : Do you snore loudly (louder than talking or can be heard through closed doors)? 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 Specify any problems Hx of Preganancy in last 3 N/A 05/20/25 04:37 Months Nurse Filling Out Transfusion [id number] 05/20/25 04:37 & Questions: Date: 05/20/25 05/20/25 04:37 Time: 04:38 05/20/25 04:37 Patient unable to answer at this time (ie. confused, unrespo /Reproduction History /Reproductive History - construction director: /Reproductive Hx- construction director Hx Now No 05/20/25 08:48 Gestational Age (in weeks): EDC: Hx Hx Para Hx Section SAB No 05/20/25 08:48 Active Medications Active Medications: Current Medications Generic Name Dose Route Start Last Admin Trade Name Freq PRN Reason Stop Dose Admin Sodium Chloride 1,000 mls @ 125 mls/hr 05/20/25 03:00 05/20/25 04:49 IV 125 mls/hr .Q8H MAYRA Administration Sodium Chloride 250 mls @ 15 mls/hr 05/20/25 04:33 IV .[id number] PRN Saline Flush Sodium Chloride 250 mls @ 15 mls/hr 05/20/25 04:33 IV .[id number] PRN Additional IVPB Infusion Metoprolol Tartrate 25 mg 05/20/25 10:00 05/20/25 09:59 Metoprolol Tartrate 25 Mg Tablet PO 25 mg BID MAYRA Administration Protocol Morphine Sulfate 2 - 4 mg 05/20/25 02:59 Morphine 2 Mg/Ml Syringe IV Q2H PRN PRN Pain Score 4-10 Ondansetron HCl 4 mg 05/20/25 02:59 Ondansetron 4 Mg/2 Ml Vial IV Q6H PRN PRN NAUSEA/VOMITING Sodium Chloride 10 - 40 ml 05/20/25 02:59 0.9% Saline Lock 10 Ml Syringe IV UD PRN SALINE FLUSH Sodium Chloride 10 - 40 ml 05/20/25 02:59 0.9% Saline Lock 10 Ml Syringe IV UD PRN SALINE FLUSH Sodium Chloride 10 - 40 ml 05/20/25 04:33 0.9% Saline Lock 10 Ml Syringe IV UD PRN SALINE FLUSH PFSH Medical History Diabetes Sleep apnea Hypertension History of stress test PONV (postoperative nausea and vomiting) COVID-19 (~10/2022) Loss of hearing Anxiety Discoloration of skin Injury of head and neck Dietary restriction Hx of gastritis Gastric reflux Shortness of breath on exertion Leg cramps History of pain when walking Heart palpitations Cardiology follow-up encounter Epigastric pain Vitamin D deficiency Rosacea Psoriasis IBS (irritable bowel syndrome) History of TIA (transient ischemic attack) Colon polyp Nausea Breast cancer, left Wears glasses Arthritis Easy bruising Excessive bleeding Former smoker CPAP (continuous positive airway pressure) dependence Hx of cardiovascular stress test (~09/13/18) Hx of echocardiogram (~06/30/17) Mixed hyperlipidemia Presence of stent in coronary artery (~01/05/17) [place]ie[place] disease Encounter for long-term (current) use of other medications Atherosclerotic heart disease of [place] coronary artery without angina pectoris Cardiovascular stress test abnormal Chest pain Home Medications ?Medication ?Instructions ?Recorded ?Last Taken ?Type L.acidoph,paracasei,B.animalis 10 1 ea PO QHS 09/23/16 06/28/17 History billion cell capsule montelukast 10 mg tablet 10 mg PO QPM 08/22/18 Unknow n History coenzyme Q10 100 mg capsule 100 mg PO DAILY 08/23/19 U nknown History metformin 500 mg 24 hr 500 mg PO BID 11/24/21 Unkno wn History tablet,extended release (gastric retention) tamoxifen 20 mg tablet 20 mg PO DAILY 11/24/21 Unkn own History doxycycline monohydrate 50 mg 50 mg PO DAILY PRN Skin 05/28/22 Unknown History capsule clobetasol 0.05 % topical gel 1 applic topical DAILY P RN Skin 09/03/22 Unknown History Cleansing omeprazole 40 mg capsule,delayed 40 mg PO DAILY Unknown History release Handicap Placard #1 ea 08/30/23 Unknown Rx calcium 315 mg (as 2 tab PO DAILY 08/30/23 Unkn own History citrate)-vitamin D3 6.25 mcg (250 unit) tablet ezetimibe 10 mg tablet (Zetia) 10 mg PO .HS cholestero l 08/30/23 Unknown History ketoconazole 2 % shampoo 1 applic topical QODAY 08/30 Unknown History lactulose 10 gram/15 mL oral 15 ml PO DAILY PRN consti pation 11/03/23 Unknown Rx solution #473 mL ammonium lactate 12 % lotion 1 applic topical PRN PRN dry skin 04/21/24 Unknown History estradiol 0.01% (0.1 mg/gram) 1 g vaginal .2xweek 04/08 03/01 Unknown History vaginal cream lisinopril 40 mg tablet 40 mg PO DAILY #90 tabs 04/0806/19/24 Rx pioglitazone 15 mg tablet 15 mg PO QDAY 04/21/24 Unkno wn History metoprolol tartrate 25 mg tablet 25 mg PO BID #180 tab s 12/04/24 Unknown Rx dicyclomine 20 mg tablet 20 mg PO TID PRN abdominal 0 12/11/24 Unknown Rx discomfort #90 TABLETS rsxiem-mzyfmdrh-ppshxmi 3 cap PO QAC #300 caps 12/27 Unknown Rx 36,000-114,000-180,000 unit capsule,delay rel (Creon) nitroglycerin 0.4 mg sublingual 0.4 mg sublingual Q5M PRN Chest 02/12/25 Unknown Rx tablet Pain #25 tabs amlodipine 5 mg tablet 2.5 mg PO BID 05/19/2505/19 History Allergy/AdvReac Type Severity Reaction Status Date / Time lovastatin Allergy Intermediate Other Verified 05/19/25 21:13 rosuvastatin (From Crestor) Allergy Intermediate Other Verified 05/19/25 21:13 ticagrelor (From Brilinta) Allergy Intermediate Shortness Verified 05/19/25 21:13 of breath atorvastatin Allergy Unknown myalgia Verified 05/19/25 21:13 hydrocodone Allergy Hives Verified 05/19/25 21:13 cephalexin monohydrate (From AdvReac Other Verified 05/19/25 21:13 Keflex) pravastatin AdvReac myalgias Verified 05/19/25 21:13 Family History Mother Cancer pancreatic cancer Father , [place] age 20's (premature CAD), 3 vessel CABG, hyperlipidemia, CHf Myocardial infarction CAD (coronary artery disease) Brother Cancer lung cancer Surgical History History of bilateral cataract extraction History of detached retina repair (~04/2023) Hx of release of tendon (~01/13/23) History of bunionectomy of left great toe History of lumpectomy of left breast Ductal carcinoma in situ (DCIS) of left breast History of cardiac catheterization (~10/12/18) History of coronary artery stent placement (~12/30/16) Status post trigger finger release History of carpal tunnel release of both wrists Hx of foot surgery Status post lumbar spine operative procedure for decompression of spinal cord Status post excision of lipoma (~11/2018) History of section History of parathyroidectomy History of cholecystectomy History of hysterectomy Social History household members: spouse housing: house current occupational status: employed Smoking Status: Former smoker quit date: 11/08/87 pack-years: 6 how long ago did patient quit smokin second hand exposure: Yes alcohol intake: never substance use type: does not use caffeine: Yes Type: coffee Number of servings: 2 what type of physical activity do you participate in: none seatbelt use: always do you feel safe at home: Yes Review of Systems (Anesthesia) ROS Narrative System reviewed and no additional complaints, except as documented.
--- NOTE | 2025-05-20 11:08 | NURSING ---
pt to OR via their staff via bed
[2025-05-20] MEDS: Clindamycin 900 MG/50 ML BAG 75 MG IV (11:27)
[2025-05-20] MEDS: Lactated Ringers 1,000 ML 15 ML IV (11:34)
--- NOTE | 2025-05-20 11:50 | OP.PCM_ITS ---
Operative Report (Standard) Operative Information Date of Procedure: 05/20/25 Pre-Operative Diagnosis: Abdominal pain Post-Operative Diagnosis: Internal hernia Surgery/Procedure Performed: Exploratory laparoscopy with lysis of adhesions sharepoint administrator: Yes Lodging Facilities Manager: Meghna Serra Tasks completed by certified first assistant: Opening & closing and Retracting Type of Anesthesia: General/Regional RN Documented Start/Stop Times: Operation Date: 05/20/25 11:15 Case Time Into Pre-Op 05/20/25 10:45 Out of Pre-Op 05/20/25 11:07 Anesthesia Start 05/20/25 11:08 Into Room 05/20/25 11:08 Procedure Start 05/20/25 11:27 Procedure Start Time: 11:27 Procedure Stop Time: 12:00 Select all DRAINS/GRAFTS/IMPLANTS that apply: None Estimated Blood Loss: 10 Specimen collected: No Description of surgery: Patient was brought back to the operating room and general anesthesia was induced. The abdomen was prepped and draped in usual sterile fashion. A midline incision was made superior to the umbilicus and deepened to the fascia which was incised. A port was placed into the abdomen and the abdomen was insufflated to 15 mmHg. Camera was placed into the abdomen and there were no injuries from entry. Under direct visualization a 5 mm port was placed in the right lower quadrant as well as right mid abdomen. Using atraumatic graspers the bowel was followed. There were adhesions in the pelvis that were lysed bluntly and sharply. Once I made my way to the left lower quadrant it was apparent that there was an internal hernia caused by an adhesion from the sigmoid colon to the anterior abdominal wall. The bowel was reduced from the internal hernia and appeared viable. The internal hernia itself was created by a small adhesion which was lysed using Enseal. The small bowel was then run and was completely decompressed. There were no other adhesions. The ports were removed and the abdomen was allowed to desufflate. The midline fascia was closed with a [id number] 0 Vicryl suture. All of the incisions were injected with local anesthetic and closed with interrupted 4-0 Monocryl sutures. Steri-Strips and bandages were applied. Patient was taken to PACU in stable condition at the end of the case. Surgical Findings: Internal hernia caused by adhesion Complications Complications: No Admit VTE Documentation VTE Mechan Device Prophylaxis: SCD's
--- NOTE | 2025-05-20 12:23 | PCM.POST.ANE ---
Anesthesia: Postop Eval I Current Vital Signs Temperature: 97 F Pulse Rate: 70 Blood Pressure: 188/82 Respiratory Rate: 16 Pulse Ox: 98 Oxygen Delivery Method: Room Air Assessment Airway patent: Yes Spontaneous unlabored respirations: Yes Mental status: Awake and Calm nausea: No Vomiting: No Anesthesia Complication: No Fluid Hydration Crystalloid volume administer (ml): 700 Total IV fluid infused: 700 Progress Note Anesthesia document: Postop Eval 1 completed: Yes
--- NOTE | 2025-05-20 12:25 | PCM.POSTANE2 ---
Anesthesia Postop Eval I Sum Postop Eval Completion status Anesthesia document: Postop Eval 1 completed: Yes Anesthesia Postop Eval I Summary Anesthesia Postop Eval I Summary: Anesthesia Postop Eval I: Assessment Summary Airway patent Yes 05/20/25 12:24 Spontaneous unlabored Yes 05/20/25 12:24 respirations Mental status Awake,Calm 05/20/25 12:24 nausea No 05/20/25 12:24 Vomiting No 05/20/25 12:24 Anesthesia Postop Eval I: Fluid Summary Crystalloid volume administer 700 05/20/25 12:24 (ml) Colloids volume administered ( ml) Blood Product volume administered (ml) Total IV fluid infused 700 05/20/25 12:24 Anesthesia Postop Eval I: Summary Notes Anesthesia Complication No 05/20/25 12:24 Anesthesia Complication Comment: Post-operative progress note Anesthesia: Postop Eval II Evaluation Mental status: Awake and Calm Pain Level: 1 nausea: No Vomiting: No
[2025-05-21] VITALS (7 sets, daily range): BP systolic 146–166; BP diastolic 54–70; PULSE 55–68; RESP 16–18; TEMP 36.2–36.7; O2SAT 94–99
[2025-05-21] MEDS: 0.9% Normal Saline (1000mL) 1,000 ML 125 ML IV (05:40)
--- NOTE | 2025-05-21 07:26 | PCM.PN.SRG ---
Subjective Subjective Patient is doing well and tolerated clears after surgery. She reports she is feeling much better. Objective Data Objective Data Vital Signs: Vital Signs Temp Pulse Resp BP Pulse Ox O2 Del Method O2 Flow Rate 97.9 F 57 L 16 148/67 H 97 Room Air 99 05/21/25 05:36 05/21/25 05:36 05/21/25 05:36 05/21/25 05:36 05/21/25 05:36 05/21/25 05:36 05/20/25 15:00 Oxygen Flow Rate (L/min) 99 Oxygen Delivery Method Room Air Weight: 139 lb 12.8 oz Body Mass Index (BMI) 24.7 Intake & Output: Intake and Output for Last 24 Hours 05/19/25 05/20/25 05/21/25 23:59 23:59 23:59 Intake Total 1000 / 1000 3166.42 / 3166.42 1600 / 1600 Balance 1000 / 1000 3166.42 / 3166.42 1600 / 1600 Lab / Micro Data 05/20/25 05:40 05/20/25 05:40 Labs: Laboratory Results - last 24 hr 05/20/25 05:40: Hemoglobin A1c 6.7 H 05/20/25 09:33: POC Glucose 109 H 05/20/25 13:05: POC Glucose 110 H 05/20/25 20:58: POC Glucose 114 H 05/21/25 05:39: POC Glucose 123 H Physical Exam Const oriented x3 and no apparent distress Resp normal respiratory effort GI soft to palpation and non-tender Assessment & Plan Assessment/Plan (1) SBO (small bowel obstruction): PLAN: Patient is postoperative day 1 from lysis of adhesions for an internal hernia. Patient is doing well today. I will advance her diet to regular and discharge her home if she tolerates this.
--- NOTE | 2025-05-21 07:27 | PCM.DC.SUM ---
Providers Date of Admission: 05/20/25 Primary Care Physician: Dr. Clifton Jennings MD Reason For Visit: ABDOMINAL PAIN Diagnosis Discharge Diagnosis (1) SBO (small bowel obstruction): Status: Acute Code(s): K56.609 - Unspecified intestinal obstruction, unspecified as to partial versus complete obstruction Plan: Patient is postoperative day 1 from lysis of adhesions for an internal hernia. Patient is doing well today. I will advance her diet to regular and discharge her home if she tolerates this. Medications at Discharge Home Medications L.acidoph,paracasei,B.animalis 10 billion cell capsule 1 ea PO QHS 09/23/16 montelukast 10 mg tablet 10 mg PO QPM 08/22/18 coenzyme Q10 100 mg capsule 100 mg PO DAILY 08/23/19 metformin 500 mg 24 hr tablet,extended release (gastric retention) 500 mg PO BID 11/24/21 tamoxifen 20 mg tablet 20 mg PO DAILY 11/24/21 doxycycline monohydrate 50 mg capsule 50 mg PO DAILY PRN Skin 05/28/22 clobetasol 0.05 % topical gel 1 applic topical DAILY PRN Skin Cleansing 09/03/22 omeprazole 40 mg capsule,delayed release 40 mg PO DAILY 11/30/22 Handicap Placard #1 ea 08/30/23 calcium 315 mg (as citrate)-vitamin D3 6.25 mcg (250 unit) tablet 2 tab PO DAILY 08/30/23 ezetimibe 10 mg tablet (Zetia) 10 mg PO .HS cholesterol 08/30/23 ketoconazole 2 % shampoo 1 applic topical QODAY 08/30/23 lactulose 10 gram/15 mL oral solution 15 ml PO DAILY PRN constipation #473 mL 11/03/23 ammonium lactate 12 % lotion 1 applic topical PRN PRN dry skin 04/21/24 estradiol 0.01% (0.1 mg/gram) vaginal cream 1 g vaginal .2xweek 04/21/24 lisinopril 40 mg tablet 40 mg PO DAILY #90 tabs 04/21/24 pioglitazone 15 mg tablet 15 mg PO QDAY 04/21/24 metoprolol tartrate 25 mg tablet 25 mg PO BID #180 tabs 12/04/24 dicyclomine 20 mg tablet 20 mg PO TID PRN abdominal discomfort #90 TABLETS 12/11/24 uldvkr-gzgurumu-orowsgy 36,000-114,000-180,000 unit capsule,delay rel (Creon) 3 cap PO QAC #300 caps 12/27/24 nitroglycerin 0.4 mg sublingual tablet 0.4 mg sublingual Q5M PRN Chest Pain #25 tabs 02/12/25 amlodipine 5 mg tablet 2.5 mg PO BID 05/19/25 oxycodone 5 mg tablet 5 - 10 mg (1 - 2 x 5 mg) PO Q4H PRN PRN Pain Score 4-10 5 days #14 tabs 05/21/25 Hospital Course Operations - (Exploratory laparoscopy) Procedures None Summary of Care Provided Hospital Course: Patient was admitted with abdominal pain and there was suggestive of internal hernia on CT scan. Following morning she was taken for surgery and she did have an internal hernia with no ischemia of the bowel. The internal hernia was reduced and she is feeling much better. Once tolerating a diet she will be discharged home. Weight / BMI Weight Weight: 139 lb 12.8 oz Body Mass Index (BMI) 24.7 ABG / Lab / Microbiology Data 05/20/25 05:40 05/20/25 05:40 Laboratory: Laboratory Results - last 24 hr 05/20/25 05:40: Hemoglobin A1c 6.7 H 05/20/25 09:33: POC Glucose 109 H 05/20/25 13:05: POC Glucose 110 H 05/20/25 20:58: POC Glucose 114 H 05/21/25 05:39: POC Glucose 123 H D/C Instructions Discharge Activity: May Not Drive (For 2 to 3 days or while taking narcotic pain medication) and May Shower Lifting Restrictions: 15 pounds for 2 weeks Additional Activity Instructions: Alternate ibuprofen and Tylenol for pain control, oxycodone for breakthrough pain Call your doctor if your incision/area has: Continuous Slow Oozing, Sudden Increased Bleeding, Increased Pain/ Swelling, Increased Redness, Foul Smelling Discharge and Swelling at the incision site Call your doctor if you observe: Fever of 101 or Higher Remove Dressing in: 2 days (Remove Steri-Strips in 7 to 10 days) Cleanse incision/area with: Soap & Water DC O2, CPAP, BIPAP Needs Home O2 Discharge instructions: No Please Follow Up With: Wong Valdes MD When: Please call to schedule 2 week follow up appointment. [phone] Meaningful Use Info Meaningful Use Meaningful Use Diagnoses (Choose all that apply): None applicable Discharge Plan Admission Admit Date/Time: 05/20/25 10:40 Attending Provider: Wong Valdes Primary Care Provider: Clifton Jennings Discharge Orders/Prescriptions Prescriptions: New oxycodone 5 mg Tablet 5 - 10 mg PO Q4H PRN PRN (Reason: Pain Score 4-10) 5 Days Qty: 14 0RF Continued montelukast 10 mg tablet 10 mg PO QPM coenzyme Q10 100 mg capsule 100 mg PO DAILY ezetimibe [Zetia] 10 mg tablet 10 mg PO .HS tamoxifen 20 mg tablet 20 mg PO DAILY doxycycline monohydrate 50 mg capsule 50 mg PO DAILY PRN (Reason: Skin) clobetasol 0.05 % gel 1 applic topical DAILY PRN (Reason: Skin Cleansing) calcium citrate-vitamin D3 315 mg-6.25 mcg (250 unit) tablet 2 tab PO DAILY ketoconazole 2 % shampoo 1 applic topical QODAY (DME) Handicap Placard See Rx Instructions Qty: 1 0RF Dose Instruction: As directed Rx Instructions: As directed; Good from 10/06/2023 to 10/06/2028 ammonium lactate 12 % lotion 1 applic topical PRN PRN (Reason: dry skin) estradiol 0.01 % (0.1 mg/gram) cream 1 g vaginal .2xweek pioglitazone 15 mg tablet 15 mg PO QDAY lisinopril 40 mg tablet 40 mg PO DAILY Qty: 90 4RF L.acidoph,paracasei,B.animalis 1 EACH capsule 1 ea PO QHS Patient Comments: GI HEALTH metformin 500 mg tablet,ER erlin.retention 24 hr 500 mg PO BID Patient Comments: 2 tabs BID omeprazole 40 mg Capsule,Delayed Release(Dr/Ec) 40 mg PO DAILY amlodipine 5 mg tablet 2.5 mg PO BID Patient Comments: approved per Octaviano Colby lactulose 10 gram/15 mL solution 15 ml PO DAILY PRN (Reason: constipation) Qty: 473 1RF metoprolol tartrate 25 mg tablet 25 mg PO BID Qty: 180 3RF dicyclomine 20 mg tablet 20 mg PO TID PRN (Reason: abdominal discomfort) Qty: 90 1RF Creon 36,000-114,000- 180,000 unit capsule,delayed release(DR/EC) 3 cap PO QAC Qty: 300 3RF Rx Instructions: take 1-2 capsules with snacks and 2-3 with meals. Max of 10 capsules daily nitroglycerin 0.4 mg tablet, sublingual 0.4 mg SUBLINGUAL Q5M PRN (Reason: Chest Pain) Qty: 25 3RF Patient Comments: CHEST PAIN Referrals / Follow Up: Clifton Jennings MD [Primary Care Provider] - Disposition Disposition (needs filled in before D/C Order can be placed): Home, Self Care
[2025-05-21] MEDS: Pioglitazone Hydrochloride 15 MG Tablet PO (08:27)
--- NOTE | 2025-05-21 10:03 | CASEMGMT ---
Dx: Abdominal Pain LACE: 2 6-Clicks: 24 Medical record reviewed and patient evaluated for identification of discharge planning needs. Based on this review, at this time criteria are not present to indicate a need for discharge planning. Will remain available to assist with discharge planning needs as identified or requested.
--- NOTE | 2025-05-21 14:52 | CHAPLAIN ---
Type of Pastoral Visit _x__ Initial Visit ___ Follow-up Visit ___ On-call Visit ___ General Patient Visit ___ Spiritual Assessment ___ Family Conference ___ Bereavement ___ Rapid Response ___ Code Blue ___ Other (describe below) Pastoral Care Referral From _x__ Patient ___ Family ___ Nurse ___ Physician ___ Positive Printer Operator ___ Face Cleaner ___ Other (describe below) Sacrament/Intervention _x__ Active listening ___ Anointing ___ Mormon ___ Bereavement ___ Communion _x__ Maryanne exploration ___ ___ Life review _x__ Prayer ___ Reconciliation ___ Sacrament of Sick _x__ Supportive presence ___ Wedding ___ Other (describe below) Pastoral Comments patient is welcoming and says she remembers this [employer] agent from time her was admitted; pt speaks of her illness and what happened after admission so far; pt is excited to tell the four [employer] agent about 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
[2025-05-22 02:44] VITALS: BP 185/80; PULSE 59; RESP 16; TEMP 36.7; O2SAT 96
--- NOTE | 2025-05-22 06:48 | PN.SURG_ITS ---
Subjective Subjective Patient reports she did not feel well after eating yesterday. She said she felt very nauseated and bloated. She states she feels much better this morning. Objective Data Objective Data Vital Signs: Vital Signs Temp Pulse Resp BP Pulse Ox O2 Del Method O2 Flow Rate 98.0 F 59 L 16 185/80 H 96 Room Air 99 05/22/25 02:44 05/22/25 02:44 05/22/25 02:44 05/22/25 02:44 05/22/25 02:44 05/22/25 02:44 05/20/25 15:00 Oxygen Flow Rate (L/min) 99 Oxygen Delivery Method Room Air Weight: 139 lb 12.8 oz Body Mass Index (BMI) 24.7 Intake & Output: Intake and Output for Last 24 Hours 05/20/25 05/21/25 05/22/25 23:59 23:59 23:59 Intake Total 3166.42 / 3166.42 3553.75 / 3553.75 500 / 500 Balance 3166.42 / 3166.42 3553.75 / 3553.75 500 / 500 Lab / Micro Data 05/20/25 05:40 05/20/25 05:40 Labs: Laboratory Results - last 24 hr 05/21/25 21:22: POC Glucose 144 H 05/22/25 05:35: POC Glucose 121 H Physical Exam Const oriented x3 and no apparent distress Resp normal respiratory effort GI soft to palpation and non-tender Extremity normal to inspection Assessment & Plan Assessment/Plan (1) SBO (small bowel obstruction): PLAN: Patient had some difficulty after eating yesterday. We will see how she is doing after breakfast. Wong Valdes MD Pager: [facility] [address] [place] [address], [address] [place] [address] Office:
[2025-05-22 09:34] VITALS: PULSE 63
[2025-05-22] MEDS: Pioglitazone Hydrochloride 15 MG Tablet PO (09:34)
[2025-05-22 09:44] VITALS: BP 156/58; PULSE 63; RESP 16; TEMP 36.6; O2SAT 98
== END 2025-05-22 12:50 | disposition home or self-care (01) | DRG 337 ==
LOC: ED 05-20 02:58 → AC 05-20 03:08 → ED 05-20 04:06 → MS3 05-20 04:08
PROVIDERS: Anesthesiology; Physician Assistant; Admitting Provider Surgery; Emergency Provider Emergency Medicine; PCP Family Medicine; Visit Provider Surgery
PROC: 0DNW4ZZ Release Peritoneum, Percutaneous Endoscopic Approach (ICD-10-PCS; CPT 49320; principal; 2025-05-20 11:00)
DX: K56.51 Intestinal adhesions [bands], with partial obstruction (principal); I16.0 Hypertensive urgency; E11.9 Type 2 diabetes mellitus without complications; I10 Essential (primary) hypertension; I25.10 Atherosclerotic heart disease of native coronary artery without angina pectoris; K21.9 Gastro-esophageal reflux disease without esophagitis; K46.9 Unspecified abdominal hernia without obstruction or gangrene; Z79.899 Other long term (current) drug therapy; Z79.84 Long term (current) use of oral hypoglycemic drugs; Z86.16 Personal history of COVID-19; Z95.5 Presence of coronary angioplasty implant and graft; Z87.891 Personal history of nicotine dependence; Z86.73 Personal history of transient ischemic attack (TIA), and cerebral infarction without residual deficits
CPT/HCPCS: 74174; 74176; 80048; 80053; 81001; 82962; 83036; 83605; 83690; 85025; 85610; 85730; 86850; 86900; 86901; 87086; 87088; 93005; 94668; 99285; Q9967; A4216; J2405

== ENCOUNTER → 2025-07-24 | Outpatient (CLI) | payer MEDICARE, SELFPAY ==
[2017-01-04 15:17] VITALS: BMI 30.1
[2025-07-24 10:35] LABS: Anion Gap 10 (5-15); BUN 17 mg/dL (4-19); BUN/Creat Ratio 18.4 RATIO (10-20); Calcium,Total 9.2 mg/dL (7.6-11.0); Carbon Dioxide 28.8 mmol/L (21.0-32.0); Chloride 101 mmol/L (98-108); Glucose 193 mg/dL (70-99); Potassium 4.0 mmol/L (3.3-5.1)
== END | disposition home or self-care (01) ==
LOC: LAB 09:22
PROVIDERS: PCP Family Medicine; Referring Provider Internal Medicine Cardiovascular Disease; Visit Provider Internal Medicine Cardiovascular Disease
DX: I10 Essential (primary) hypertension (principal)
CPT/HCPCS: 36415; 80048

== ENCOUNTER → 2025-08-23 | Outpatient (CLI) | payer MEDICARE, SELFPAY ==
[2017-01-04 15:17] VITALS: BMI 30.1
--- NOTE | 2025-08-23 08:10 | CT_ITS ---
PROCEDURE: ABDOMEN/PELVIS WITH CONTRAST 08/23/2025 REASON FOR EXAM: S/P INTERNAL HERNIA REDUCTION History of prior breast cancer. TECHNIQUE: Procedure Code: [id number] Modality: CT Procedure: ABDOMEN/PELVIS WITH CONTRAST Coronal and Sagittal reconstruction series were provided. CONTRAST: Isovue-300 VOLUME: 100 mL One or more dose reduction techniques were used (e.g., Automated exposure control, adjustment of the mA and/or kV according to patient size, use of iterative reconstruction technique. RADIATION DOSE SUMMARY: CTDlvol: 16.8 mGy DLP: 753.92 mGycm COMPARISON: Prior study dated May 20, 2025. FINDINGS: Lung bases: The lung bases are clear. Coronary artery calcification. Liver: Minimally dilated central intrahepatic biliary ducts most likely secondary to the post cholecystectomy state. Gallbladder: Surgically absent. Spleen: Normal size. Pancreas: Normal size without evidence of mass surrounding inflammation or ductal dilation. Adrenals: Unremarkable Kidneys: Stable 9 mm cyst in the inferior lateral pole of the right kidney. Bladder: Unremarkable Reproductive Organs: Prior hysterectomy. Adnexal regions are unremarkable. Bowel: Unremarkable Appendix: The appendix is not identified. There is no inflammatory process identified in the right lower quadrant to suggest appendicitis. Lymph nodes: Unremarkable. Vasculature: The abdominal aorta and IVC are normal. Peritoneum / Retroperitoneum: Small volume free fluid in the pelvis nonspecific and usually physiologic in a female patient of this age. Bones: Degenerative changes of the spine. CT/Abdomen/Pelvis WITH Contrast IMPRESSION: Status post cholecystectomy and hysterectomy. No acute abnormality is seen. Reading Location: [facility]
== END | disposition home or self-care (01) ==
LOC: CT 08:05
PROVIDERS: PCP Family Medicine; Referring Provider Internal Medicine Gastroenterology; Visit Provider Internal Medicine Gastroenterology
DX: K45.8 Other specified abdominal hernia without obstruction or gangrene (principal)
CPT/HCPCS: 74177; Q9967